=== PATIENT | female | born 1955 | race Caucasian/White ===

== ENCOUNTER 2016-05-29 21:47 | Emergency (ER) | payer OTHER ==
[~2016-05-29] VITALS: Ht 160 cm; Wt 66.3 kg
[~2016-05-29 21:47] MED LIST: AMIT50TA3 PO; CHOLTAB9 PO; CLOP1TAB15 PO; DIGO0.1267 PO; FURO40TA3 PO; LEVO125T72 PO; LOSA50TA6 PO; METO10TA3 PO; METO25TA56 PO; METO50TA17 PO; NITR0.4S UT; OMEP20CA9 PO; POTA-74 PO; ROSU5TAB PO; SPIR25TA PO; TRAM-453 PO; TRIA0.1C20 TOP; WARF2.5T8 PO; WARF5TAB90 PO
[2016-05-29 22:04] VITALS: TEMP 37.2; Ht 160 cm; Wt 66.3 kg
[2016-05-29] MEDS ORDERED: SODIUM CHLORIDE 0.9% 1000ML 1,000 ML IV STA (22:12)
[2016-05-29 22:15] VITALS: O2SAT 98
--- NOTE | 2016-05-29 22:17 | EMERGENCY ROOM VISIT NOTE ---
ED Visit Note First contact with patient: 21:56 I have seen and examined this patient with Stas Soler and generally agree with the treatment plan as discussed. Current/Historical Medications Scheduled Amitriptyline Hcl (Amitriptyline Hcl), 100 MG PO DAILY Cholecalciferol (D3-1000), 1,000 UNIT PO DAILY Clopidogrel (Plavix), 75 MG PO DAILY Digoxin (Lanoxin), 0.125 MG PO Q2D Furosemide (Lasix), 40 MG PO WK Levothyroxine Sodium (Synthroid), 125 MCG PO DAILY Losartan Potassium (Cozaar), 25 MG PO DAILY Metoclopramide HCl (Metoclopramide HCl), 10 MG PO DAILY Metoprolol Tartrate (Metoprolol Tartrate), 50 MG PO QAM Metoprolol Tartrate (Lopressor) (Lopressor), 25 MG PO QPM Omeprazole (Prilosec), 20 MG PO DAILY Potassium Chloride (Potassium Chloride Er), 1 TAB PO WK Rosuvastatin Calcium (Crestor), 10 MG PO DAILY Spironolactone (Aldactone), 25 MG PO BID Warfarin Sod (Jantoven), 2.5 MG PO 2XWK Warfarin Sodium (Coumadin), 5 MG PO DAILY Scheduled PRN Nitroglycerin (Nitrostat), 0.4 MG UT PRN PRN for Chest Pain Tramadol Hcl (Ultram), 50 MG PO TID PRN for Pain Triamcinolone Acet 0.1% (Aristocort 0.1%), 1 APPLN TOP BID PRN for ITCHING Allergies Coded Allergies: Promethazine (Verified Allergy, Mild, UNKNOWN, 11/16/15) PERRY Inhibitors (Verified Allergy, Unknown, UNKNOWN, 11/16/15) Benzyl Alcohol (Verified Allergy, Unknown, unknown, 11/16/15) Hydroxyzine (Verified Allergy, Unknown, UNKNOWN, 11/16/15) Metformin (Verified Allergy, Unknown, UNKNOWN, 11/16/15) Prochlorperazine (Verified Allergy, Unknown, unknown, 11/16/15) Saccharin (Verified Allergy, Unknown, unknown, 11/16/15) Tetracycline (Verified Allergy, Unknown, UNKNOWN, 11/16/15) Vital Signs Date Time Temp Pulse Resp B/P Pulse Ox O2 Delivery O2 Flow Rate FiO2 05/29/16 22:15 98 Room Air 05/29/16 22:04 37.2 66 18 104/51 99 Room Air 05/29/16 22:02 63 Laboratory Results Test 05/29/16 22:12 Departure Information Referrals John Blanco M.D. (PCP) Patient Instructions [facility]
[2016-05-29] MEDS ORDERED: AMT/25 PO (22:20)
[2016-05-29 22:21] LABS: BASO % 0.1 %; BASO ABS # 0.01 K/uL (0-0.2); COMPLETE YES; EOS % 2.9 %; HEMATOCRIT 35.3 % (37-47); IG% 0.3 %; LYMPH % 24.7 %; LYMPH ABS # 1.95 K/uL (1.2-3.4); MEAN CELL VOLUME 88.3 fL (80-100); MEAN CORPUSCULAR HEMOGLOBIN 29.3 pg (25-34); MEAN CORPUSCULAR HGB CONC 33.1 g/dl (32-36); MEAN PLATELET VOLUME 10.8 fL (7.4-10.4); PLATELET COUNT 132 K/uL (130-400); WHITE BLOOD COUNT 7.89 K/uL (4.8-10.8)
[2016-05-29] MEDS ORDERED: LNX125 PO (22:21)
[2016-05-29] MEDS ORDERED: LOSA1TAB PO (22:22)
[2016-05-29 22:31] LABS: INR 2.9 (0.9-1.1); PARTIAL THROMBOPLASTIN RATIO 1.6; PROTHROMBIN TIME (PATIENT) 32.4 SECONDS (9.0-12.0)
[2016-05-29 22:38] LABS: BUN/CREATININE RATIO 13.2 (10-20); CALCIUM 9.1 mg/dl (8.5-10.1); CREATININE 2.1 mg/dl (0.60-1.20); POTASSIUM 4.6 mmol/L (3.5-5.1)
[2016-05-29 22:41] LABS: ALB/GLOB RATIO 1.3 (0.9-2)
[2016-05-29 23:00] VITALS: O2SAT 96
--- NOTE | 2016-05-29 23:01 | DIAGNOSTIC IMAGING REPORT ---
ABDOMEN AND PELVIS CT WITHOUT CONTRAST CT DOSE: 410.12 mGy.cm HISTORY: suprapubic abdominal pain/vaginal bleeding - h/o hysterectomy TECHNIQUE: Multiaxial CT images of the abdomen and pelvis were performed without the use of intravenous and oral contrast according to the standard department stone protocol. COMPARISON STUDY: None. FINDINGS: The heart is moderately enlarged. There is a mitral valve prosthesis. Poststernotomy changes. Mild dependent changes seen within the lingula. No pneumoperitoneum. No pneumatosis. No suspicious lytic or blastic osseous lesions. The gallbladder is identified and may be surgically absent. The unenhanced liver, spleen, adrenal glands, kidneys, and pancreas are within normal limits. There is fatty replacement within the pancreatic head. No retroperitoneal lymphadenopathy. The bladder is moderately distended. The uterus is surgically absent. There are no fluid collections within the pelvis. Suboptimal evaluation for bowel pathology due to the lack of intravenous and oral contrast. However, there is no definite bowel wall thickening or obstruction. The appendix appears to be surgically absent. Moderate well-formed stool seen within the colon rectum. IMPRESSION: 1. Moderate cardiomegaly. 2. Moderate well-formed stool seen within the colon and rectum. 3. No definite bowel wall thickening or obstruction. 4. The bladder is moderately distended. Electronically signed by: Darshan Mosquera M.D. 05/29/2016 10:59 PM Dictated Date/Time: 05/29/2016 10:52 PM
[2016-05-29 23:25] LABS: URINE APPEARANCE CLEAR (CLEAR); URINE BILIRUBIN NEG (NEG); URINE COLOR YELLOW; URINE EPITHELIAL CELL AUTO 0-5 /lpf (0-5); URINE NITRITE NEG (NEG); URINE SPECIFIC GRAVITY 1.006 (1.000-1.030); UROBILINOGEN NEG (NEG); ZZUR CULT IF INDIC CLEAN CATCH NO
[2016-05-29 23:29] LABS: MANUAL MICROSCOPIC REQUIRED? NO; REVIEW REQ? NO
--- NOTE | 2016-05-30 00:50 | EMERGENCY ROOM VISIT NOTE ---
History First contact with patient: 21:56 Chief Complaint: VAGINAL BLEEDING Stated Complaint: VAG OR RECTAL BLEEDING History of Present Illness The patient is a 60 year old female who presents to the Emergency Department via EMS for evaluation of possible rectal or vaginal bleeding. She reports that after getting out of the shower tonight she noticed blood on her foot. She initially thought that she had foot laceration, but noticed the blood was dripping from her vaginal or rectal area. She medially contacted EMS. The patient takes Coumadin secondary to mechanical mitral valve repair. Her INR is typically above 3. She noticed intense bleeding which she reports is now decreased. She reports no previous history of bleeding issues. She's had a prior total hysterectomy. She reports no history of hemorrhoids and she does complain of some suprapubic discomfort. She's had no burning with urination or blood in her urine. She rates her current discomfort as a 3/10. She denies any fevers, chills, tinnitus, lightheadedness, chest pain, palpitations, shortness of breath, hematemesis, hematochezia, melena, hematuria, or dysuria. Review of Systems A complete 10-point Review of Systems was discussed with the patient, with pertinent positives and negatives listed in the History of Present Illness. All remaining Review of Systems questions can be considered negative unless otherwise specified. Social History Smoking Status: Never Smoker Smokeless Tobacco Use: No Alcohol Use: none Drug Use: none Marital Status: single Housing Status: lives with family Occupation Status: retired Current/Historical Medications Scheduled Amitriptyline HCl (Amitriptyline HCl), 100 MG PO DAILY Cholecalciferol (D3-1000), 1,000 UNIT PO DAILY Clopidogrel (Plavix), 75 MG PO DAILY Digoxin (Digoxin), 125 MCG PO Q2D Furosemide (Lasix), 40 MG PO WK Levothyroxine Sodium (Synthroid), 125 MCG PO DAILY Losartan Potassium (Cozaar), 25 MG PO DAILY Metoprolol Tartrate (Metoprolol Tartrate), 50 MG PO QAM Metoprolol Tartrate (Lopressor) (Lopressor), 25 MG PO QPM Omeprazole (Prilosec), 20 MG PO DAILY Potassium Chloride (Potassium Chloride Er), 1 TAB PO WK Rosuvastatin Calcium (Crestor), 10 MG PO DAILY Spironolactone (Aldactone), 25 MG PO BID Warfarin Sodium (Coumadin), 5 MG PO DAILY Scheduled PRN Metoclopramide HCl (Metoclopramide HCl), 10 MG PO DAILY PRN for GI Upset Nitroglycerin (Nitrostat), 0.4 MG UT PRN PRN for Chest Pain Tramadol Hcl (Ultram), 50 MG PO TID PRN for Pain Allergies Coded Allergies: Promethazine (Verified Allergy, Mild, UNKNOWN, 05/29/16) PERRY Inhibitors (Verified Allergy, Unknown, UNKNOWN, 05/29/16) Benzyl Alcohol (Verified Allergy, Unknown, unknown, 05/29/16) Hydroxyzine (Verified Allergy, Unknown, UNKNOWN, 05/29/16) Metformin (Verified Allergy, Unknown, UNKNOWN, 05/29/16) Prochlorperazine (Verified Allergy, Unknown, unknown, 05/29/16) Saccharin (Verified Allergy, Unknown, unknown, 05/29/16) Tetracycline (Verified Allergy, Unknown, UNKNOWN, 05/29/16) Physical Exam Vital Signs Date Time Temp Pulse Resp B/P Pulse Ox O2 Delivery O2 Flow Rate FiO2 05/30/16 01:07 65 18 104/70 Room Air 05/29/16 23:00 83 18 115/82 96 Room Air 05/29/16 22:15 98 Room Air 05/29/16 22:04 37.2 66 18 104/51 99 Room Air 05/29/16 22:02 63 Pain Rating (0-10): 3 Physical Exam VITAL SIGNS - Vital signs and nursing notes were reviewed. GENERAL - 60-year-old Female appearing her stated age who is in no acute distress. Communicates well with provider and answers questions appropriately. HEAD - NC/AT. LUNGS - Chest wall symmetric without accessory muscle use, intercostals retractions, or central cyanosis. Normal vesicular breath sounds CTA B/L. No wheezes, rales, or rhonchi appreciated. CARDIAC - RRR with S1/S2. No murmur, rubs, or gallops appreciated. ABDOMEN - Abdominal contour obese without pulsations or visible masses. BS normoactive all four quadrants. Mild tenderness to palpation appreciated in the suprapubic area. No palpable masses, hepatosplenomegaly, or ascites noted. BRIDAL CONSULTANT - (An RN nurse monitor worker was present throughout the entire BRIDAL CONSULTANT procedure.) SPECULUM EXAM: - Water-soluble lubricant was applied to the plastic speculum and inserted into the vagina in a downward fashion towards the location of the cervix. When resistance was met, the speculum was opened to visualize the cervix. There is no presence of cervix likely secondary to surgical removal. No leading or dried blood noted. Speculum removed without any blood present. - MONS - Kavon Stage V. multiple small purple papules noted to the labia bilaterally. Small excoriation over 1 the papules. No active bleeding noted. - VULVA - skin color consistent with surrounding structures. - RECTAL - skin tag noted in the 6 cough position. No active bleeding noted. Water-soluble lubricant was utilized to perform digital rectal exam. No rectal vault tenderness. No active bleeding. Stool was Hemoccult NEGATIVE. PSYCH - A&Ox3 and cooperates fully with examiner. Pt is very pleasant and interacts well with examiner. Medical Decision & Procedures ER Provider Diagnostic Interpretation: Radiological imaging and reports were reviewed by myself. Radiologist's Interpretation as follows: ABDOMEN AND PELVIS CT WITHOUT CONTRAST CT DOSE: 410.12 mGy.cm HISTORY: suprapubic abdominal pain/vaginal bleeding - h/o hysterectomy TECHNIQUE: Multiaxial CT images of the abdomen and pelvis were performed without the use of intravenous and oral contrast according to the standard department stone protocol. COMPARISON STUDY: None. FINDINGS: The heart is moderately enlarged. There is a mitral valve prosthesis. Poststernotomy changes. Mild dependent changes seen within the lingula. No pneumoperitoneum. No pneumatosis. No suspicious lytic or blastic osseous lesions. The gallbladder is identified and may be surgically absent. The unenhanced liver, spleen, adrenal glands, kidneys, and pancreas are within normal limits. There is fatty replacement within the pancreatic head. No retroperitoneal lymphadenopathy. The bladder is moderately distended. The uterus is surgically absent. There are no fluid collections within the pelvis. Suboptimal evaluation for bowel pathology due to the lack of intravenous and oral contrast. However, there is no definite bowel wall thickening or obstruction. The appendix appears to be surgically absent. Moderate well-formed stool seen within the colon rectum. IMPRESSION: 1. Moderate cardiomegaly. 2. Moderate well-formed stool seen within the colon and rectum. 3. No definite bowel wall thickening or obstruction. 4. The bladder is moderately distended. Laboratory Results 05/29/16 21:58 Red Blood Count 4.00, Mean Corpuscular Volume 88.3, Mean Corpuscular Hemoglobin 29.3, Mean Corpuscular Hemoglobin Concent 33.1, Mean Platelet Volume 10.8, Neutrophils (%) (Auto) 62.0, Lymphocytes (%) (Auto) 24.7, Monocytes (%) (Auto) 10.0, Eosinophils (%) (Auto) 2.9, Basophils (%) (Auto) 0.1, Neutrophils # (Auto ) 4.89, Lymphocytes # (Auto) 1.95, Monocytes # (Auto) 0.79, Eosinophils # (Auto ) 0.23, Basophils # (Auto) 0.01 05/29/16 21:58 Test 05/29/16 21:58 05/29/16 23:05 White Blood Count 7.89 K/uL (4.8-10.8) Red Blood Count 4.00 M/uL (4.2-5.4) Hemoglobin 11.7 g/dL (12.0-16.0) Hematocrit 35.3 % (37-47) Mean Corpuscular Volume 88.3 fL (80-100) Mean Corpuscular Hemoglobin 29.3 pg (25-34) Mean Corpuscular Hemoglobin Concent 33.1 g/dl (32-36) Platelet Count 132 K/uL (130-400) Mean Platelet Volume 10.8 fL (7.4-10.4) Neutrophils (%) (Auto) 62.0 % Lymphocytes (%) (Auto) 24.7 % Monocytes (%) (Auto) 10.0 % Eosinophils (%) (Auto) 2.9 % Basophils (%) (Auto) 0.1 % Neutrophils # (Auto) 4.89 K/uL (1.4-6.5) Lymphocytes # (Auto) 1.95 K/uL (1.2-3.4) Monocytes # (Auto) 0.79 K/uL (0.11-0.59) Eosinophils # (Auto) 0.23 K/uL (0-0.5) Basophils # (Auto) 0.01 K/uL (0-0.2) RDW Standard Deviation 47.3 fL (36.4-46.3) RDW Coefficient of Variation 14.6 % (11.5-14.5) Immature Granulocyte % (Auto) 0.3 % Immature Granulocyte # (Auto) 0.02 K/uL (0.00-0.02) Prothrombin Time 32.4 SECONDS (9.0-12.0) Prothromb Time International Ratio 2.9 (0.9-1.1) Activated Partial Thromboplast Time 41.5 SECONDS (21.0-31.0) Partial Thromboplastin Ratio 1.6 Anion Gap 5.0 mmol/L (3-11) Est Creatinine Clear Calc Drug Dose 25.4 ml/min Estimated GFR () 28.5 Estimated GFR (Non- 24.6 BUN/Creatinine Ratio 13.2 (10-20) Calcium Level 9.1 mg/dl (8.5-10.1) Total Bilirubin 0.5 mg/dl (0.2-1) Aspartate Amino Transf (AST/SGOT) 30 U/L (15-37) Alanine Aminotransferase (ALT/SGPT) 36 U/L (12-78) Alkaline Phosphatase 80 U/L (45-117) Total Protein 7.2 gm/dl (6.4-8.2) Albumin 4.0 gm/dl (3.4-5.0) Globulin 3.2 gm/dl (2.5-4.0) Albumin/Globulin Ratio 1.3 (0.9-2) Urine Color YELLOW Urine Appearance CLEAR (CLEAR) Urine pH 7.0 (4.5-7.5) Urine Specific [place] 1.006 (1.000-1.030) Urine Protein NEG (NEG) Urine Glucose (UA) NEG (NEG) Urine Ketones NEG (NEG) Urine Occult Blood TRACE (NEG) Urine Nitrite NEG (NEG) Urine Bilirubin NEG (NEG) Urine Urobilinogen NEG (NEG) Urine Leukocyte Esterase TRACE (NEG) Urine WBC (Auto) 1-5 /hpf (0-5) Urine RBC (Auto) 0-4 /hpf (0-4) Urine Hyaline Casts (Auto) 0 /lpf (0-5) Urine Epithelial Cells (Auto) 0-5 /lpf (0-5) Urine Bacteria (Auto) NEG (NEG) Medications Administered Medications (Trade) Dose Ordered Sig/Raam Route Start Time Stop Time Status Last Admin Dose Admin Sodium Chloride (Nss 1000ml) 1,000 ml @ 125 mls/hr Q8H STAT IV 05/29/16 22:12 05/30/16 01:28 DC 05/29/16 22:12 125 MLS/HR ED Course Patient was seen and evaluated by myself. Labs were drawn, saline lock in place. The patient was hydrated with normal saline at a rate of [address] of the abdomen and pelvis without contrast was ordered secondary to the patient's renal disease and chronic elevated creatinine. Laboratory results demonstrate no acute leukocytosis, worrisome anemia, or bandemia. She has no significant electrolyte abnormality. Creatinine is elevated at 2.1 which seems to be the patient's baseline. CT results above. Pelvic exam was otherwise unremarkable. Rectal exam demonstrated an occult negative stool. Laboratory results and imaging studies were reviewed with the patient who acknowledges understanding. Patient and family were instructed to follow-up with primary care provider from today's visit. They were educated on worrisome symptoms for return visit to the emergency department. Patient discharged home in good condition. Medical Decision Given the patient's presentation and stated complaint, I did elect to perform the above-mentioned workup. The patient presents today with bleeding from the rectum or vaginal area. On initial nursing assessment, it was felt that the blood was from the vaginal area. She has no active bleeding at this time. She is hemodynamically stable. Her H&H is stable. Her INR is elevated at 2.9 consistent with her history of mitral valve repair. She has no bleeding at this point. Pelvic exam and rectal exam are unremarkable. I suspected the patient may have had some bleeding from a small hemangioma present on the vulva. Regardless, there is no active bleeding at this point. The patient follow closely with her primary care provider from today's visit. She will return to the emergency department in the setting of any changing or worsening symptoms. Patient discharged home afebrile and in good condition. In the evaluation and treatment of this patient, the following differential diagnoses were considered: GI bleeding, vaginal bleeding, DIC, amongst others. Impression Primary Impression: Vaginal bleeding problems Departure Information Dispostion Home / Self-Care Condition GOOD Referrals John Blanco M.D. (PCP) Patient Instructions [facility] Additional Instructions You have been seen in the emergency department today for bleeding from the vaginal area. Keep your scheduled INR recheck appointment tomorrow. Return for any changing or worsening symptoms.
[2016-05-30 01:07] VITALS: BP 104/70; PULSE 65
== END 2016-05-30 01:09 | disposition home or self-care (01) ==
LOC: EDBD 21:47 → C.EDB 21:48
DX: N93.9 Abnormal uterine and vaginal bleeding, unspecified (principal); I34.1 Nonrheumatic mitral (valve) prolapse; Z90.710 Acquired absence of both cervix and uterus; Z79.01 Long term (current) use of anticoagulants; Z79.899 Other long term (current) drug therapy; Z88.8 Allergy status to other drugs, medicaments and biological substances

== ENCOUNTER 2016-06-02 14:28 | Emergency (ER) | payer OTHER ==
[~2016-06-02] VITALS: Ht 160 cm; Wt 61.0 kg
[~2016-06-02 14:28] MED LIST changes: -AMIT50TA3 PO; +AMT/25 PO; -DIGO0.1267 PO; +LNX125 PO; +LOSA1TAB PO; -LOSA50TA6 PO; -TRIA0.1C20 TOP; -WARF2.5T8 PO
[2016-06-02 14:33] VITALS: TEMP 37.1; Ht 160 cm; Wt 61.0 kg
[2016-06-02] MEDS ORDERED: SODIUM CHLORIDE 0.9% 1000ML 1,000 ML IV STA (14:57)
[2016-06-02 15:10] VITALS: O2SAT 96
[2016-06-02 15:21] LABS: BASO % 0.3 %; BASO ABS # 0.02 K/uL (0-0.2); COMPLETE YES; EOS % 2.4 %; HEMATOCRIT 34.7 % (37-47); IG% 0.3 %; LYMPH ABS # 1.22 K/uL (1.2-3.4); MEAN CELL VOLUME 86.8 fL (80-100); MEAN CORPUSCULAR HEMOGLOBIN 29.3 pg (25-34); MEAN CORPUSCULAR HGB CONC 33.7 g/dl (32-36); MEAN PLATELET VOLUME 11.2 fL (7.4-10.4); MONO % 7.2 %; NEUT % 71.8 %; PLATELET COUNT 139 K/uL (130-400); WHITE BLOOD COUNT 6.77 K/uL (4.8-10.8)
[2016-06-02 15:30] LABS: INR 3.2 (0.9-1.1); PARTIAL THROMBOPLASTIN RATIO 1.7; PROTHROMBIN TIME (PATIENT) 35.6 SECONDS (9.0-12.0)
[2016-06-02 15:40] LABS: BUN/CREATININE RATIO 15.1 (10-20); CALCIUM 9.7 mg/dl (8.5-10.1); CREATININE 1.6 mg/dl (0.60-1.20); POTASSIUM 4.6 mmol/L (3.5-5.1)
--- NOTE | 2016-06-02 15:52 | DIAGNOSTIC IMAGING REPORT ---
PELVIC ULTRASOUND CLINICAL HISTORY: Vaginal bleeding. COMPARISON STUDY: CT of the abdomen and pelvis May 29, 2016. TECHNIQUE: Transabdominal sonography of the pelvis was performed. Transvaginal imaging was deferred in this patient. FINDINGS: The uterus is not visualized and by history is surgically absent. Neither ovary was visualized by sonography. No adnexal mass or fluid was identified. IMPRESSION: 1. No pelvic mass or ascites identified by sonography. 2. Status post hysterectomy. Nonvisualization of the ovaries. Correlation with surgical history is recommended. Electronically signed by: Trey Fox M.D. 06/02/2016 3:50 PM Dictated Date/Time: 06/02/2016 3:48 PM
[2016-06-02 15:56] LABS: MANUAL MICROSCOPIC REQUIRED? YES; URINE APPEARANCE TURBID (CLEAR); URINE BILIRUBIN NEG (NEG); URINE COLOR RED; URINE NITRITE NEG (NEG); URINE PH 7.5 (4.5-7.5); UROBILINOGEN POS (NEG)
[2016-06-02 15:57] LABS: REVIEW REQ? NO; SULFASALICYLIC ACID POS (NEG)
[2016-06-02 15:59] LABS: URINE BACTERIA 1+ (NEG); URINE RBC >30 /hpf (0-4); URINE WBC >30 /hpf (0-5)
[2016-06-02 16:39] VITALS: BP 129/61; PULSE 67; O2SAT 95
[2016-06-02] MEDS ORDERED: GELATIN SPONGE 12-7MM ONE (16:58)
--- NOTE | 2016-06-02 20:12 | EMERGENCY ROOM VISIT NOTE ---
History Report prepared by Adithya: Valentin Mendoza Under the Supervision of: Dr. Henrik Lopez D.O. First contact with patient: 14:48 Chief Complaint: VAGINAL BLEEDING Stated Complaint: VAGINAL BLEEDING History of Present Illness The patient is a 60 year old female who presents to the Emergency Room with complaints of persistent vaginal bleeding that started at 1300 today. She saturated 2 pads so far. She also had cramping abdominal pain, which is resolved. The patient was in the ED with vaginal bleeding four days ago, and had a negative CT scan at that time. The patient is s/p complete hysterectomy. She never had any children. She denies recent sexual intercourse or vaginal trauma. She also has a history of IA and atrial fibrillation. She is s/p mitral valve replacement. She is on Coumadin and Plavix. Patient denies headache, change in vision, fevers, chest pain, shortness of breath, nausea, vomiting, diarrhea, pain with urination, and melena. Source of History: patient Onset: 1300 today Position: other (vaginal) Quality: other (bleeding) Timing: other (persistent) Associated Symptoms: + abdominal pain, No SOB, No chest pain, No diarrhea, No fevers, No nausea, No urinary symptoms Review of Systems See HPI for pertinent positives & negatives. A total of 10 systems reviewed and were otherwise negative. Past Medical & Surgical Medical Problems: (1) A-fib (2) Closed head injury (3) Knee pain, left (4) Myocardial infarction Surgical Problems: (1) Mitral valve replaced Family History No pertinent family history Social History Smoking Status: Never Smoker Alcohol Use: none Drug Use: none Marital Status: single Housing Status: lives with family Occupation Status: retired Current/Historical Medications Scheduled Amitriptyline HCl (Amitriptyline HCl), 100 MG PO DAILY Cholecalciferol (D3-1000), 1,000 UNIT PO DAILY Clopidogrel (Plavix), 75 MG PO DAILY Digoxin (Digoxin), 125 MCG PO Q2D Furosemide (Lasix), 40 MG PO WK Levothyroxine Sodium (Synthroid), 125 MCG PO DAILY Losartan Potassium (Cozaar), 25 MG PO DAILY Metoprolol Tartrate (Metoprolol Tartrate), 50 MG PO QAM Metoprolol Tartrate (Lopressor) (Lopressor), 25 MG PO QPM Omeprazole (Prilosec), 20 MG PO DAILY Potassium Chloride (Potassium Chloride Er), 1 TAB PO WK Rosuvastatin Calcium (Crestor), 10 MG PO DAILY Spironolactone (Aldactone), 25 MG PO BID Warfarin Sodium (Coumadin), 5 MG PO DAILY Scheduled PRN Metoclopramide HCl (Metoclopramide HCl), 10 MG PO DAILY PRN for GI Upset Nitroglycerin (Nitrostat), 0.4 MG UT PRN PRN for Chest Pain Tramadol Hcl (Ultram), 50 MG PO TID PRN for Pain Allergies Coded Allergies: Promethazine (Verified Allergy, Mild, UNKNOWN, 05/29/16) PERRY Inhibitors (Verified Allergy, Unknown, UNKNOWN, 05/29/16) Benzyl Alcohol (Verified Allergy, Unknown, unknown, 05/29/16) Hydroxyzine (Verified Allergy, Unknown, UNKNOWN, 05/29/16) Metformin (Verified Allergy, Unknown, UNKNOWN, 05/29/16) Prochlorperazine (Verified Allergy, Unknown, unknown, 05/29/16) Saccharin (Verified Allergy, Unknown, unknown, 05/29/16) Tetracycline (Verified Allergy, Unknown, UNKNOWN, 05/29/16) Physical Exam Vital Signs Date Time Temp Pulse Resp B/P Pulse Ox O2 Delivery O2 Flow Rate FiO2 06/02/16 16:39 67 20 129/61 95 Room Air 06/02/16 15:10 96 Room Air 06/02/16 14:33 37.1 67 20 121/61 94 Room Air Physical Exam GENERAL: Sitting up in bed, alert, well appearing, well nourished, no distress, non-toxic EYE EXAM: normal conjunctiva. OROPHARYNX: no exudate, no erythema, lips, buccal mucosa, and tongue normal and mucous membranes are moist NECK: supple, no nuchal rigidity, no adenopathy, non-tender LUNGS: Clear to auscultation. Normal chest wall mechanics HEART: Audible click noted, S1 normal and S2 normal ABDOMEN: abdomen soft, non-tender, normo-active bowel sounds, no masses, no rebound or guarding. SKIN: no rashes and no bruising UPPER EXTREMITIES: upper extremities are grossly normal. LOWER EXTREMITIES: No pitting edema. NEURO EXAM: Normal sensorium, cranial nerves II-XII grossly intact, normal speech, no gross weakness of arms, no gross weakness of legs. Gross sensation intact. PELVIC: External genitalia with bleeding hemangioma on the right labia majora. No rectal or internal vaginal bleeding. Normal vaginal mucosa. Medical Decision & Procedures ER Provider Diagnostic Interpretation: Radiology results as stated below per my review and the radiologist's interpretation: PELVIC ULTRASOUND CLINICAL HISTORY: Vaginal bleeding. COMPARISON STUDY: CT of the abdomen and pelvis May 29, 2016. TECHNIQUE: Transabdominal sonography of the pelvis was performed. Transvaginal imaging was deferred in this patient. FINDINGS: The uterus is not visualized and by history is surgically absent. Neither ovary was visualized by sonography. No adnexal mass or fluid was identified. IMPRESSION: 1. No pelvic mass or ascites identified by sonography. 2. Status post hysterectomy. Nonvisualization of the ovaries. Correlation with surgical history is recommended. Electronically signed by: Trey Fox M.D. 06/02/2016 3:50 PM Dictated Date/Time: 06/02/2016 3:48 PM Laboratory Results 06/02/16 15:07 Red Blood Count 4.00, Mean Corpuscular Volume 86.8, Mean Corpuscular Hemoglobin 29.3, Mean Corpuscular Hemoglobin Concent 33.7, Mean Platelet Volume 11.2, Neutrophils (%) (Auto) 71.8, Lymphocytes (%) (Auto) 18.0, Monocytes (%) (Auto) 7.2, Eosinophils (%) (Auto) 2.4, Basophils (%) (Auto) 0.3, Neutrophils # (Auto) 4.86, Lymphocytes # (Auto) 1.22, Monocytes # (Auto) 0.49, Eosinophils # (Auto) 0.16, Basophils # (Auto) 0.02 06/02/16 15:07 Test 06/02/16 15:07 06/02/16 15:17 White Blood Count 6.77 K/uL (4.8-10.8) Red Blood Count 4.00 M/uL (4.2-5.4) Hemoglobin 11.7 g/dL (12.0-16.0) Hematocrit 34.7 % (37-47) Mean Corpuscular Volume 86.8 fL (80-100) Mean Corpuscular Hemoglobin 29.3 pg (25-34) Mean Corpuscular Hemoglobin Concent 33.7 g/dl (32-36) Platelet Count 139 K/uL (130-400) Mean Platelet Volume 11.2 fL (7.4-10.4) Neutrophils (%) (Auto) 71.8 % Lymphocytes (%) (Auto) 18.0 % Monocytes (%) (Auto) 7.2 % Eosinophils (%) (Auto) 2.4 % Basophils (%) (Auto) 0.3 % Neutrophils # (Auto) 4.86 K/uL (1.4-6.5) Lymphocytes # (Auto) 1.22 K/uL (1.2-3.4) Monocytes # (Auto) 0.49 K/uL (0.11-0.59) Eosinophils # (Auto) 0.16 K/uL (0-0.5) Basophils # (Auto) 0.02 K/uL (0-0.2) RDW Standard Deviation 46.5 fL (36.4-46.3) RDW Coefficient of Variation 14.5 % (11.5-14.5) Immature Granulocyte % (Auto) 0.3 % Immature Granulocyte # (Auto) 0.02 K/uL (0.00-0.02) Prothrombin Time 35.6 SECONDS (9.0-12.0) Prothromb Time International Ratio 3.2 (0.9-1.1) Activated Partial Thromboplast Time 44.7 SECONDS (21.0-31.0) Partial Thromboplastin Ratio 1.7 Anion Gap 5.0 mmol/L (3-11) Est Creatinine Clear Calc Drug Dose 30.1 ml/min Estimated GFR () 39.6 Estimated GFR (Non- 34.2 BUN/Creatinine Ratio 15.1 (10-20) Calcium Level 9.7 mg/dl (8.5-10.1) Total Bilirubin 0.7 mg/dl (0.2-1) Direct Bilirubin 0.2 mg/dl (0-0.2) Aspartate Amino Transf (AST/SGOT) 35 U/L (15-37) Alanine Aminotransferase (ALT/SGPT) 41 U/L (12-78) Alkaline Phosphatase 93 U/L (45-117) Total Protein 7.5 gm/dl (6.4-8.2) Albumin 4.0 gm/dl (3.4-5.0) Lipase 138 U/L (73-393) Urine Color RED Urine Appearance TURBID (CLEAR) Urine pH 7.5 (4.5-7.5) Urine Specific [place] 1.020 (1.000-1.030) Urine Protein 2+ (NEG) Urine Glucose (UA) NEG (NEG) Urine Ketones NEG (NEG) Urine Occult Blood 3+ (NEG) Urine Nitrite NEG (NEG) Urine Bilirubin NEG (NEG) Urine Urobilinogen POS (NEG) Urine Leukocyte Esterase NEG (NEG) Urine RBC >30 /hpf (0-4) Urine WBC >30 /hpf (0-5) Urine Epithelial Cells >30 /lpf (0-5) Urine Bacteria 1+ (NEG) Laboratory results per my review. Medications Administered Medications (Trade) Dose Ordered Sig/Rama Route Start Time Stop Time Status Last Admin Dose Admin Sodium Chloride (Nss 1000ml) 1,000 ml @ 999 mls/hr Q1H1M STAT IV 06/02/16 14:57 06/02/16 15:57 DC 06/02/16 15:20 999 MLS/HR Gelatin (Surgifoam Sponge 12-7MM (SMALL)) 1 ea STK-MED ONCE .ROUTE 06/02/16 16:58 06/02/16 16:59 DC 06/02/16 16:58 1 EA ED Course ED COURSE: Vital signs were reviewed and were normal. The patients medical record was reviewed The above diagnostic studies were performed and reviewed. ED treatments and interventions as stated above. 1450: The patient was evaluated in room C10. A complete history and physical examination was performed. 1457: NSS 1000 ml @ 999 mls/hr. 1645: : Upon reevaluation, the patient is doing well.I discussed my findings with the patient and she understands and agrees with the treatment plan. Based on the patients age, coexisting illnesses, exam and lab findings the decision to treat as an outpatient was made. The patient remained stable while under my care. The patient appeared well at the time of discharge. Medical Decision Differential diagnosis: Etiologies such as ectopic , dysfunction uterine bleeding, bleeding dyscrasia, trauma, infection, as well as others were entertained. Patient is a 60-year-old female who presents for vaginal bleeding. Labs show no significant anemia with a hemoglobin of 11.7 unchanged from her previous on Saturday. BMP shows a creatinine 1.6. LFTs along with lipase and bilirubin was unremarkable. UA was contaminated with multiple epithelial cells. No urinary symptoms. INR was therapeutic at 3.2. Pelvic ultrasound was unremarkable. On my exam she has clear obvious bleeding from her right labial majora from a hemangioma. Pressure was held and Surgifoam was placed. Bleeding stopped. She was discharged to follow with her primary care doctor in 24 hours. Discussed with Pt concerning signs and symptoms to watch out for. Pt was instructed to follow up with their PCP and discussed with the patient their option to return to the ED at anytime for persistent or worsening symptoms. The appropriate anticipatory guidance and out-patient management, including indications for return to the emergency department, were explained at length to the patient and understood. Impression Primary Impression: Hemangioma Scribe Attestation The scribe's documentation has been prepared under my direction and personally reviewed by me in its entirety. I confirm that the note above accurately reflects all work, treatment, procedures, and medical decision making performed by me. Departure Information Dispostion Home / Self-Care Referrals John Blanco M.D. (PCP) Forms HOME CARE DOCUMENTATION FORM, IMPORTANT VISIT INFORMATION, WORK / SCHOOL INSTRUCTIONS Patient Instructions My [facility] Additional Instructions Please follow up with your primary care doctor with in the next 24 hours. Any worsening of your symptoms, please return to the ED immediately. This includes persistent bleeding. If the bleeding does recur please hold pressure for 20 minutes without checking. If it does not stop with holding pressure as instructed please return to the ER. You were found to have bleeding from a small hemangioma on your right labia majora. This bleeding resolved with pressure.
== END 2016-06-02 17:05 | disposition home or self-care (01) ==
LOC: EDBD 14:28 → C.EDC 14:29
DX: D18.00 Hemangioma unspecified site (principal); I48.91 Unspecified atrial fibrillation; I25.2 Old myocardial infarction; Z79.01 Long term (current) use of anticoagulants; Z51.81 Encounter for therapeutic drug level monitoring

== ENCOUNTER → 2016-11-09 | Outpatient (CLI) | payer OTHER ==
--- NOTE | 2016-11-12 13:33 | MAMMOGRAPHY REPORT ---
BILATERAL DIGITAL SCREENING MAMMOGRAM TOMOSYNTHESIS WITH CAD: 11/09/2016 TECHNIQUE: Breast tomosynthesis in addition to standard 2D mammography was performed. Current study was also evaluated with a Computer Aided Detection (CAD) system. COMPARISON: Comparison is made to exams dated: 10/21/2015 mammogram, 09/30/2014 mammogram, 09/29/2013 ma mmogram, 07/01/2012 ultrasound, 07/01/2012 mammogram - [facility], and 11/16/2004 mamm ogram - [facility]-. BREAST COMPOSITION: The tissue of both breasts is heterogeneously dense, which may obscure small mas ses. FINDINGS: No suspicious masses, calcifications, or areas of architectural distortion are noted in ei ther breast. There has been no significant interval change compared to prior exams. Oval partially c ircumscribed and partially obscured mass in the left upper outer quadrant is decreased compared to 2013 exam, and was shown to represent a benign cyst on a prior ultrasound exam. Note that the MLO views are somewhat suboptimal due to difficulties with patient positioning due to kyphosis and stiff shoulders; the pectoralis muscles are not visualized down to the posterior nipple line on bilateral M LO views. IMPRESSION: ACR BI-RADS CATEGORY 2: BENIGN There is no mammographic evidence of malignancy. A 1 year screening mammogram is recommended. The pa tient will receive written notification of the results. Approximately 10% of breast cancers are not detected with mammography. A negative mammographic report should not delay biopsy if a clinically suggestive mass is present. Khloe Davila M.D. ah/:11/09/2016 16:38:16 Nib Inspector: Aliyah ESPINAL(Kierra)(M), [facility] letter sent: Normal 1/2 BI-RADS Code: ACR BI-RADS Category 2: Benign
== END | disposition home or self-care (01) ==
LOC: C.MAMM 14:35
PROVIDERS: ATTEND Family Medicine
DX: Z12.31 Encounter for screening mammogram for malignant neoplasm of breast (principal)

== ENCOUNTER 2018-05-18 16:13 | Inpatient (IN) ==
[2018-05-18] MEDS ORDERED: SODIUM CHLORIDE 0.9% 500 ML IV ONE (16:38)
--- NOTE | 2018-05-18 17:00 | CT Scan Report ---
CT OF THE HEAD WITHOUT CONTRAST CLINICAL HISTORY: Stroke evaluation, aphasia COMPARISON STUDY: Head CT December 11, 2017. CT DOSE: 537.48 mGy.cm TECHNIQUE: Helical axial images of the head were obtained without IV contrast. Automated exposure con trol was utilized for the study. A dose lowering technique was utilized adhering to the principles o f ALARA. FINDINGS: No acute intracranial hemorrhage, midline shift or mass effect is present. Brain volume is normal. Ventricular system is normal. Basilar cisterns are patent. There are no extra-axial collectio ns. Ahn-white differentiation is maintained. There are no findings to suggest acute dural sinus thro mbosis or acute territorial infarct. No calvarial abnormalities are present. IMPRESSION: No acute intracranial findings. Electronically signed by: Trey Fox M.D. 05/18/2018 4:59 PM
[2018-05-18 17:09] LABS: Alanine Aminotransferase 28 U/L (12-78); Aspartate Aminotransferase 29 U/L (15-37); BUN Creatinine Ratio 11.6 (10-20); Blood Urea Nitrogen 15 mg/dl (7-18); Calcium 9.5 mg/dl (8.5-10.1); Carbon Dioxide 31 mmol/L (21-32); Chloride 104 mmol/L (98-107); Creatinine Clr Calc Pharmacy 37.2 ml/min; Est GFR (African American) 49.3; Est GFR (Non-African American) 42.5; Glucose 104 mg/dl (70-99); Magnesium 2.4 mg/dl (1.8-2.4); Potassium 4.2 mmol/L (3.5-5.1); Sodium 139 mmol/L (136-145)
[2018-05-18 17:16] LABS: INR 2.7 (0.9-1.1); Partial Thromboplastin Ratio 1.5; Partial Thromboplastin Time 40.6 Seconds (21.0-31.0); Prothrombin Time 25.7 Seconds (9.0-12.0)
[2018-05-18 17:20] LABS: Albumin Globulin Ratio 1.1 (0.9-2); Alkaline Phosphatase 96 U/L (45-117); Bilirubin,Total 0.5 mg/dl (0.2-1); Globulin 3.7 gm/dl (2.5-4.0); Total Protein 7.7 gm/dl (6.4-8.2); Troponin I < 0.015 ng/ml (0-0.045)
[2018-05-18 17:32] LABS: T4 Free Thyroxine 1.01 ng/dl (0.8-1.6)
[2018-05-18 17:39] LABS: Basophils # (auto) 0.03 K/uL (0-0.2); Basophils % (auto) 0.5 %; Eosinophils % (auto) 3.3 %; Hemoglobin 11.1 g/dL (12.0-16.0); Lymphocytes # (auto) 1.06 K/uL (1.2-3.4); Lymphocytes % (auto) 17.3 %; Mean Corpuscular Hemoglobin 27.3 pg (25-34); Mean Corpuscular Hgb Conc 31.7 g/dL (32-36); Mean Corpuscular Volume 86.2 fL (80-100); Mean Platelet Volume 11.3 fL (7.4-10.4); Monocytes # (auto) 0.41 K/uL (0.11-0.59); Monocytes % (auto) 6.7 %; Neutrophils # (auto) 4.42 K/uL (1.4-6.5); Neutrophils % (auto) 72.2 %; Platelet Count 140 K/uL (130-400); RDW Coefficient of Variation 15.5 % (11.5-14.5); RDW Standard Deviation 49.6 fL (36.4-46.3); Red Blood Count 4.06 M/uL (4.2-5.4); White Blood Count 6.12 K/uL (4.8-10.8)
--- NOTE | 2018-05-18 18:14 | History & Physical Report ---
Date of Service May 18, 2018 Assessment & Plan (1) Numbness: Acute numbness that is symmetric and less likely related to stroke however, she is high risk secondary to a mechanical mitral valve and she has some slurred speech that her mother corroborates is different than normal. She does have a history of migraines but denies any history of aura in the past. She denies any headache currently. Electrolytes are within normal limits. She is not a vegetarian or vegan. She denies any recent abnormal foods that she might of been allergic to. She denies any swelling of her mouth or tongue. She denies any numbness of her tongue. She denies any UTI symptoms however urinalysis and urine sharp pending. She did report some generalized lightheadedness the day prior to onset of symptoms. Symptoms have not resolved throughout today. Diabetes is well controlled. As she is high risk for stroke will admit her to the hospital on telemetry and monitor on telemetry. She has a history of atrial fibrillation as is currently in this rhythm. She has a history of past embolic myocardial infarction and TIA and was on chronic anticoagulation plus antiplatelet therapy with clopidogrel until this was stopped by Cardiology in December 2017. She remains on Coumadin monotherapy. Rate is normal. MRI is contraindicated in setting of mechanical mitral valve. CT head without contrast is negative for acute intracranial abnormality. Last echo was in June 2017 and revealed a normal prosthetic valve. Will repeat echo at this time. Consult neurology and cardiology for additional recommendations. Will check B12 and folate in the morning and again urine studies are pending. (2) H/O mitral valve replacement with mechanical valve: Goal INR 2.5-3.5, currently within range. Trend INR daily (3) Hypothyroidism: TSH is 11 however, levothyroxine was recently increased from 75 p.o. daily to 100 p.o. daily. 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 She has always taken at this time and does not take it with any other medications or with dinner. (4) Diabetes type 2, controlled: Diet controlled diabetes, blood sugar checks before meals at bedtime with insulin for correction factor only. No carb coverage. A1c in a.m. (5) Atrial fibrillation: Persistent, on Coumadin, rate controlled with metoprolol 25 mg p.o. every morning. (6) DVT prophylaxis: Coumadin Full code Disposition-to telemetry DO [facility] Hospitalist History of Present Illness Chief Complaint: I woke up with numbness Primary Care Provider: John Blanco MD 62-year-old female with history of rheumatic heart disease status post mitral mechanical heart valve on Coumadin and therapeutic presented with 1 day of bilateral lower face numbness, bilateral fingertip numbness and bilateral numbness on the bottoms of her feet. She reports waking up with this. She also reports some slurred speech and her mother agrees she is speaking differently. There is no other gross focal deficit that is reported or seen on exam. She denies any history of confusion, changes in vision, headaches, recent migraines, (of which she has a history.), She is not vegan, she denies any food allergies or eating any new strange foods. She denies any tongue numbness and she denies any swelling of her mouth or tongue. She denies any focal weakness in her arms or legs and no generalized weakness. She does report the day prior to arrival she was feeling lightheaded all day but this did not stop her from walking to [place] and going through her daily activities. She otherwise denies any recent infections, she denies any UTI symptoms, she denies any changes in bowel aside from diarrhea for 1 day last week. She denies any chest pain, shortness of breath, abdominal pain, weight gain or swelling. The numbness in her feet is not causing her difficulties with walking. She is a diabetic but is well controlled. She denies a history of neuropathy. Allergies Allergy/AdvReac Type Severity Reaction Status Date / Time prochlorperazine Allergy Severe NUCHAL Verified 05/18/18 17:51 DYSTONIA promethazine Allergy Severe NUCHAL Verified 05/18/18 17:51 DYSTONIA PERRY Inhibitors Allergy Intermediate Cough Verified 05/18/18 17:51 benzyl alcohol Allergy Unknown unknown Verified 05/18/18 17:51 hydroxyzine Allergy Unknown UNKNOWN Verified 05/18/18 17:51 metformin AdvReac Intermediate Diarrhea Verified 05/18/18 17:51 tetracycline AdvReac Intermediate Gastrointestinal Verified 05/18/18 17:51 Upset Home Medications Home Medications Medication Instructions Recorded Confirmed Type cholecalciferol (vitamin D3) 1,000 unit PO QAM 12/05/17 05/18/18 History [Vitamin D3] metoprolol tartrate 25 mg PO QAM 12/05/17 05/18/18 History nitroglycerin [Nitrostat] 0.4 mg SUBLINGUAL DIRECTED PRN 12/05/17 05/18/18 History omeprazole 20 mg PO PM 12/05/17 05/18/18 History rosuvastatin 10 mg PO DAILY 12/05/17 05/18/18 History tramadol 50 mg PO TID PRN 12/05/17 05/18/18 History acetaminophen [Tylenol Extra 500 mg PO Q6H PRN 05/18/18 05/18/18 History Strength] amitriptyline 50 mg PO BID 05/18/18 05/18/18 History furosemide 40 mg PO [id number]@0900 05/18/18 05/18/18 History levothyroxine 100 mcg PO PM 05/18/18 05/18/18 History metoclopramide HCl [Reglan] 10 mg PO AC PRN 05/18/18 05/18/18 History ropinirole [Requip] 2 mg PO TID 05/18/18 05/18/18 History warfarin 5 mg PO 4XWK 05/18/18 05/18/18 History warfarin 7.5 mg PO 3XWK 05/18/18 05/18/18 History Past Med/Surg History Medical History Anxiety CKD (chronic kidney disease), stage III Migraines Restless legs syndrome S/P tubal ligation TIA (transient ischemic attack) Atrial fib/flutter, transient Diabetes H/O radioactive iodine thyroid ablation H/O: hysterectomy HTN (hypertension) Surgical History S/P appy S/P MVR (mitral valve replacement) S/P T&A (status post tonsillectomy and adenoidectomy) S/P cholecystectomy Social History Preferred Language: Hungarian Beliefs That Will Affect Care: Mormonism Current Living Situation: Parent and Family Current Living Situation Comment: mother livs w/ pt, pt care for mother Feels Safe at Home: Yes Smoking Status: Never smoker Hx Alcohol Use: Yes Hx Substance Use: No Review of Systems At least ten systems were reviewed and negative except as indicated in HPI above. Physical Exam Vital Signs (Past 24 Hours): Last Vital Signs Temp 36.5 C 05/18/18 16:21 Pulse 59 L 05/18/18 17:41 Resp 18 05/18/18 17:41 BP 134/81 05/18/18 17:41 Pulse Ox 99 05/18/18 17:41 CONSTITUTIONAL: WNWD, vitals as above, generally well-appearing, no overt speech deficits, facial symmetry noted EYES: EOMI bilaterally, PERRL, normal conjuctivae, no scleral icterus ENT: oropharynx clear, no maxillary or ethmoid sinus tenderness NECK: trachea midline, no lymphadenopathy RESPIRATORY: Crackles at right base otherwise clear to auscultation bilaterally. No wheezes, normal respiratory effort CARDIOVASCULAR: regular rate and rhythm, S1 and 2 heard without murmurs, gallops or rubs, mechanical valve audible on auscultation, no JVD, no peripheral edema GASTROINTESTINAL: normal bowel sounds, soft, nontender, nondistended MUSCULOSKELETAL: strength 5/5 throughout, head is normocephalic and atraumatic SKIN: warm and dry NEUROLOGIC: patellar and BR DTR 2+ bilat. PERRL, EOMI, no facial palsy, no dysarthria. CN 2-12 intact, decreased facial sensation bilaterally in the lower face, no decreased sensation to touch in hands, decreased sensation on soles of feet bilaterally to touch, normal cognition, normal speech, no tremor PSYCHIATRIC: alert cooperative and oriented to person, place and time. Results & Data Laboratory Results Short CBC 05/18/18 Range/Units 15:59 WBC 6.12 (4.8-10.8) K/uL Hgb 11.1 L (12.0-16.0) g/dL Hct 35.0 L (37-47) % Plt Count 140 (130-400) K/uL BMP 05/18/18 15:59 Sodium 139 Potassium 4.2 Chloride 104 Carbon Dioxide 31 BUN 15 Creatinine 1.32 H Glucose 104 H Calcium 9.5 Cardiac Enzymes 05/18/18 Range/Units 15:59 Troponin I < 0.015 (0-0.045) ng/ml Liver Function 05/18/18 Range/Units 15:59 Total Bilirubin 0.5 (0.2-1) mg/dl AST 29 (15-37) U/L ALT 28 (12-78) U/L Alkaline Phosphatase 96 (45-117) U/L Albumin 4.0 (3.4-5.0) gm/dl Diagnostic Findings CT OF THE HEAD WITHOUT CONTRAST CLINICAL HISTORY: Stroke evaluation, aphasia COMPARISON STUDY: Head CT December 11, 2017. CT DOSE: 537.48 mGy.cm TECHNIQUE: Helical axial images of the head were obtained without IV contrast. Automated exposure control was utilized for the study. A dose lowering technique was utilized adhering to the principles of ALARA. FINDINGS: No acute intracranial hemorrhage, midline shift or mass effect is present. Brain volume is normal. Ventricular system is normal. Basilar cisterns are patent. There are no extra-axial collections. Ahn-white differentiation is maintained. There are no findings to suggest acute dural sinus thrombosis or acute territorial infarct. No calvarial abnormalities are present. IMPRESSION: No acute intracranial findings. 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
--- NOTE | 2018-05-18 19:15 | Emergency Department Note ---
Entered by Leigh Dobson acting as a scribe for Perez Worthington M.D. History of Present Illness General Chief complaint: Neuro Symptoms/Deficit Source: patient and family Mode of arrival: ambulatory Limitations: no limitations History of Present Illness Onset (ago): hour(s) 8 Location: head Radiation: non-radiation Pain Consistency: + constant Quality: + other (tingling) Associated symptoms: + other (+dizziness); no chest pain, no cough (or cold symptoms) and no nausea/vomiting Treatments prior to arrival: none The patient is a 62 year old female who presents to the Emergency Room with complaints of persistent neurologic symptoms since 929 this morning. She states she first experienced tingling in her face which then progressed to her bilateral fingers. She denies any headache or vision changes. Her Mother notes her speech does seem slightly slurred. She denies any nausea, vomiting or chest pain. She denies any recent cough or cold symptoms. She notes she did experience dizziness yesterday. The patient states she did have a "mild stroke" over 20 years ago. She does take daily Coumadin for a history of mitral valve replacement. Home Medications Home Medications Medication Instructions Recorded Confirmed Type cholecalciferol (vitamin D3) 1,000 unit PO QAM 12/05/17 05/18/18 History [Vitamin D3] metoprolol tartrate 25 mg PO QAM 12/05/17 05/18/18 History nitroglycerin [Nitrostat] 0.4 mg SUBLINGUAL DIRECTED PRN 12/05/17 05/18/18 History omeprazole 20 mg PO PM 12/05/17 05/18/18 History rosuvastatin 10 mg PO DAILY 12/05/17 05/18/18 History tramadol 50 mg PO TID PRN 12/05/17 05/18/18 History acetaminophen [Tylenol Extra 500 mg PO Q6H PRN 05/18/18 05/18/18 History Strength] amitriptyline 50 mg PO BID 05/18/18 05/18/18 History furosemide 40 mg PO MoWeFr@0900 05/18/18 05/18/18 History levothyroxine 100 mcg PO PM 05/18/18 05/18/18 History metoclopramide HCl [Reglan] 10 mg PO DAILY PRN 05/18/18 05/18/18 History ropinirole [Requip] 2 mg PO TID 05/18/18 05/18/18 History warfarin 5 mg PO 4XWK 05/18/18 05/18/18 History warfarin 7.5 mg PO 3XWK 05/18/18 05/18/18 History Allergies Allergy/AdvReac Type Severity Reaction Status Date / Time prochlorperazine Allergy Severe NUCHAL Verified 05/18/18 17:51 DYSTONIA promethazine Allergy Severe NUCHAL Verified 05/18/18 17:51 DYSTONIA PERRY Inhibitors Allergy Intermediate Cough Verified 05/18/18 17:51 benzyl alcohol Allergy Unknown unknown Verified 05/18/18 17:51 hydroxyzine Allergy Unknown UNKNOWN Verified 05/18/18 17:51 metformin AdvReac Intermediate Diarrhea Verified 05/18/18 17:51 tetracycline AdvReac Intermediate Gastrointestinal Verified 05/18/18 17:51 Upset Past Med/Surg History Medical History Anxiety CKD (chronic kidney disease), stage III Migraines Restless legs syndrome S/P tubal ligation TIA (transient ischemic attack) Atrial fib/flutter, transient Diabetes H/O radioactive iodine thyroid ablation H/O: hysterectomy HTN (hypertension) Surgical History S/P appy S/P MVR (mitral valve replacement) S/P T&A (status post tonsillectomy and adenoidectomy) S/P cholecystectomy Social History Preferred Language: Togolese Beliefs That Will Affect Care: Scientology Current Living Situation: Parent and Family Current Living Situation Comment: mother livs w/ pt, pt care for mother Feels Safe at Home: Yes Smoking Status: Never smoker Hx Alcohol Use: Yes Hx Substance Use: No Review of Systems See HPI for pertinent positives & negatives. and A total of 10 systems reviewed and were otherwise negative Physical Exam Vital Signs Vital Signs - 24 hr 05/18/18 16:21 05/18/18 17:41 05/18/18 18:37 Temperature 36.5 C Temperature Source Oral Sepsis Recent Fever Within 48 Hours No Sepsis New/Unexplained Change in Mental Status No Sepsis Action Taken by Nursing No Action Required Pulse Rate 66 Pulse Rate [Left Apical] 59 L 66 Pulse Rhythm Regular Pulse Strength Normal Respiratory Rate 18 18 18 Respiratory Effort / Characteristics Non-Labored Non-Labored Respiratory Depth Normal Normal Respiratory Pattern Regular Blood Pressure 134/77 Blood Pressure [Right Arm] 134/81 141/85 H Blood Pressure Mean 96 Blood Pressure Mean [Right Arm] 98 103 Blood Pressure Position Lying Pulse Oximetry 97 99 100 Oxygen Delivery Method Room Air Room Air GENERAL: Awake, alert, well-appearing, in no distress HENT: Normocephalic, atraumatic. Oropharynx unremarkable. EYES: Normal conjunctiva. Sclera non-icteric. EOMI. NECK: Supple. No nuchal rigidity. RESPIRATORY: Clear to auscultation. No wheezes. Normal respiratory effort. CARDIAC: Normal rate. Irregular rhythm. Extremities warm and well perfused. GI: Soft, non-distended. No tenderness to palpation. RECTAL: Deferred. MUSCULOSKELETAL: Atraumatic. Chest examination reveals no tenderness. LOWER EXTREMITIES: Calves are equal size bilaterally and non-tender. No edema NEURO: Slurred speech. No finger to nose ataxia. 5/5 strength in extremities. No facial droop. No aphasia. SKIN: Warm and dry. No rash or jaundice noted. Course 1630: Past medical records reviewed. The patient was evaluated in room C1B, and a complete history and physical examination were performed. 1539: I discussed the patients case with Dilma Pérez. The patient will be further evaluated. Consultations Consultation #1: I discussed the patients case with Dilma Pérez. The patient will be further evaluated. Time: 15:39 Administered Medications Discontinued Medications Sodium Chloride (Nss) 500 mls @ 999 mls/hr IV .Q31M ONE Stop: 05/18/18 17:08 Last Infusion: 05/18/18 17:29 Dose: 0 mls/hr Documented by: [id number] Admin: 05/18/18 16:59 Dose: 999 mls/hr Documented by: [id number] Medical Decision Making Differential Diagnosis Differential diagnoses includes but is not limited to toxic, metabolic, infectious, traumatic, cardiac, neurologic, hematologic, psychiatric and inflammatory etiologies. Medical Records Attestation: I reviewed the patient's medical records. Home Medications Current Medication List: was personally reviewed by me Laboratory Data Attestation: I reviewed the patient's lab results. Result diagrams: 05/18/18 15:59 05/18/18 15:59 Lab Results 05/18/18 05/18/18 05/18/18 Range/Units 15:59 15:59 15:59 WBC 6.12 (4.8-10.8) K/uL RBC 4.06 L (4.2-5.4) M/uL Hgb 11.1 L (12.0-16.0) g/dL Hct 35.0 L (37-47) % MCV 86.2 (80-100) fL MCH 27.3 (25-34) pg MCHC 31.7 L (32-36) g/dL RDW Std Deviation 49.6 H (36.4-46.3) fL RDW Coeff of Courtney 15.5 H (11.5-14.5) % Plt Count 140 (130-400) K/uL MPV 11.3 H (7.4-10.4) fL Immature Gran % (Auto) 0.0 % Neut % (Auto) 72.2 % Lymph % (Auto) 17.3 % Glascock % (Auto) 6.7 % Eos % (Auto) 3.3 % Baso % (Auto) 0.5 % Immature Gran # (Auto) 0.00 (0.00-0.02) K/uL Neut # (Auto) 4.42 (1.4-6.5) K/uL Lymph # (Auto) 1.06 L (1.2-3.4) K/uL Glascock # (Auto) 0.41 (0.11-0.59) K/uL Eos # (Auto) 0.20 (0-0.5) K/uL Baso # (Auto) 0.03 (0-0.2) K/uL PT 25.7 H (9.0-12.0) Seconds INR 2.7 H (0.9-1.1) APTT 40.6 H (21.0-31.0) Seconds PTT Ratio 1.5 Sodium 139 (136-145) mmol/L Potassium 4.2 (3.5-5.1) mmol/L Chloride 104 (98-107) mmol/L Carbon Dioxide 31 (21-32) mmol/L Anion Gap 4.0 (3-11) BUN 15 (7-18) mg/dl Creatinine 1.32 H (0.6-1.2) mg/dl Est Cr Clr Drug Dosing 37.2 ml/min Est GFR ( Amer) 49.3 Est GFR (Non-Af Amer) 42.5 BUN/Creatinine Ratio 11.6 (10-20) Glucose 104 H (70-99) mg/dl Calcium 9.5 (8.5-10.1) mg/dl Magnesium 2.4 (1.8-2.4) mg/dl Total Bilirubin 0.5 (0.2-1) mg/dl AST 29 (15-37) U/L ALT 28 (12-78) U/L Alkaline Phosphatase 96 (45-117) U/L Troponin I < 0.015 (0-0.045) ng/ml Total Protein 7.7 (6.4-8.2) gm/dl Albumin 4.0 (3.4-5.0) gm/dl Globulin 3.7 (2.5-4.0) gm/dl Albumin/Globulin Ratio 1.1 (0.9-2) TSH 11.200 H (0.300-4.500) uIu/ml Free T4 1.01 (0.8-1.6) ng/dl Imaging Data Radiologist's Impression: Radiology results as stated below per my review and the radiologist's interpretation: CT OF THE HEAD WITHOUT CONTRAST CLINICAL HISTORY: Stroke evaluation, aphasia COMPARISON STUDY: Head CT December 11, 2017. CT DOSE: 537.48 mGy.cm TECHNIQUE: Helical axial images of the head were obtained without IV contrast. Automated exposure control was utilized for the study. A dose lowering technique was utilized adhering to the principles of ALARA. FINDINGS: No acute intracranial hemorrhage, midline shift or mass effect is present. Brain volume is normal. Ventricular system is normal. Basilar cisterns are patent. There are no extra-axial collections. Ahn-white differentiation is maintained. There are no findings to suggest acute dural sinus thrombosis or acute territorial infarct. No calvarial abnormalities are present. IMPRESSION: No acute intracranial findings. Electronically signed by: Trey Fox M.D. 05/18/2018 4:59 PM ECG Data Attestation: I personally reviewed and interpreted this ECG as follows: Indication: weakness Rate (beats per minute): 68 Rhythm: atrial fibrillation Findings: + other (Non-specific T-wave changes); no ST depression and no ST elevation Blood Pressure Blood Pressure Findings: Elevated blood pressure Blood Pressure Disposition: further management by hospitalist MDM Narrative 62-year-old female presenting via S today with a past medical history significant for migraine, mechanical valve replacement on Coumadin, atrial fibrillation, GERD, diabetes, CKD, RLS, TIA who states that around 7:00 this morning had some mouth numbness, dysphasia, tongue numbness, and tingling in her hands but not really sided. Also endorse that she has a bit of a headache at this time. Denies visual changes. No trauma or fever reported. CT the head is unremarkable. INR 2.7 therapeutic. Electrolytes look okay. Thyroid, TSH, is elevated but free T4 is within normal limits. EKG shows rate controlled atrial fibrillation. Patient has a mechanical heart valve and unable to undergo MRI. New concerns could be a possible CVA versus atypical migraine symptoms. Discussed with hospitalist and patient feel that admission is indicated for further neurological consultation. Impression & Plan Slurred speech, Numbness Discharge Plan Visit Data Chief Complaint: Neuro Symptoms/Deficit ED Provider: Perez Worthington Discharge Problem: Slurred speech, Numbness Patient Disposition: Being Evaluated by Hospitalist Discharge Instructions Interventions: ED Discharge Assessment Last Done: 05/18/18 19:07 Forms Stand Alone Forms: [facility] Prescriptions Prescriptions: No Action acetaminophen [Tylenol Extra Strength] 500 mg Tablet 500 mg PO Q6H PRN (Reason: Pain) RF: 0 levothyroxine 100 mcg tablet 100 mcg PO PM RF: 0 warfarin 5 mg Tablet 5 mg PO 4XWK RF: 0 warfarin 5 mg Tablet 7.5 mg PO 3XWK RF: 0 metoclopramide HCl [Reglan] 10 mg Tablet 10 mg PO DAILY PRN (Reason: Nausea) RF: 0 ropinirole [Requip] 4 mg Tablet 2 mg PO TID RF: 0 furosemide 40 mg tablet 40 mg PO MoWeFr@0900 RF: 0 amitriptyline 50 mg tablet 50 mg PO BID RF: 0 tramadol 50 mg Tablet 50 mg PO TID PRN (Reason: Pain) RF: 0 nitroglycerin [Nitrostat] 0.4 mg Tablet, Sublingual 0.4 mg Sublingual DIRECTED PRN (Reason: Chest Pain) RF: 0 omeprazole 20 mg Capsule,Delayed Release(Dr/Ec) 20 mg PO PM RF: 0 cholecalciferol (vitamin D3) [Vitamin D3] 1,000 unit Capsule 1,000 unit PO QAM RF: 0 rosuvastatin 10 mg Tablet 10 mg PO DAILY RF: 0 metoprolol tartrate 25 mg Tablet 25 mg PO QAM RF: 0 Referrals Referrals: John Blanco MD [Primary Care Provider] - The scribe's documentation has been prepared under my direction and personally reviewed by me in its entirety. I confirm that the note above accurately reflects all work, treatment, procedures, and medical decision making performed by me.
[2018-05-18] MEDS ORDERED: METOCLOPRAMIDE HCL 10 MG TABLET PO PRN (19:24)
[2018-05-18] MEDS ORDERED: NITROGLYCERIN SL 0.4 MG/TAB TAB SL PRN (19:24)
[2018-05-18] MEDS ORDERED: GLUCOSE 40% GEL 15 GM TUBE PO PRN (19:33)
[2018-05-18] MEDS ORDERED: GLUCOSE 10 TABS/TUBE PO PRN (19:33)
[2018-05-18] MEDS ORDERED: DEXTROSE 50% 50 ML SYRINGE IV PRN (19:33)
[2018-05-18] MEDS ORDERED: PHARMACIST DISCHARGE MED REC CONSULT PRN (19:33)
[2018-05-18] MEDS ORDERED: GLUCAGON FOR INJ 1 MG VIAL SQ PRN (19:33)
[2018-05-18] MEDS ORDERED: CARBOHYDRATES FOR HYPOGLYCEMIA PO PRN (19:33)
[2018-05-18] MEDS: ROPINIROLE HCL 1 MG TABLET PO SCH (21:12)
[2018-05-18] MEDS: PANTOprazole 40 MG TAB PO SCH (21:12)
[2018-05-18] MEDS: AMITRIPTYLINE HCL 50 MG TAB PO SCH (21:13)
[2018-05-18] MEDS: INSULIN ASPART 100 UNITS/ML 3 ML PEN SC SCH (21:13)
[2018-05-18] MEDS: WARFARIN SOD 5 MG TAB PO SCH (21:14)
[2018-05-18] MEDS: SODIUM CHLORIDE 0.9% 1000ML 1,000 ML IV SCH (21:15)
[2018-05-18] MEDS ORDERED: PNEUMOCOCCAL ADMINISTRATION CHARGE ONE (21:15)
[2018-05-18] MEDS ORDERED: PNEUMOCOCCAL POLYSACCHARIDES 25 MCG/0.5 ML VIAL/SYR IM ONE (21:15)
[2018-05-18 23:15] LABS: Appearance Urine Clear (Clear); Bilirubin Urine Negative (Negative); Color Urine Yellow; Glucose Urine UA Negative (Negative); Ketones Urine Negative (Negative); Leukocyte Esterase Urine Negative (Negative); Nitrite Urine Negative (Negative); Protein Urine Negative (Negative); Specific Gravity Urine 1.011 (1.000-1.030); Urobilinogen Urine Negative (Negative); pH Urine 7.5 (4.5-7.5)
[2018-05-19] MEDS: TRAMADOL HCL 50 MG TABLET PO PRN (05:53)
[2018-05-19] MEDS: LEVOTHYROXINE SODIUM 100 MCG TABLET PO SCH (05:53)
[2018-05-19 07:32] LABS: Hematocrit (blood only) 29.9 % (37-47); Hemoglobin 9.3 g/dL (12.0-16.0); Mean Corpuscular Hgb Conc 31.1 g/dL (32-36); Mean Corpuscular Volume 86.7 fL (80-100); RDW Coefficient of Variation 15.7 % (11.5-14.5); RDW Standard Deviation 49.8 fL (36.4-46.3); Red Blood Count 3.45 M/uL (4.2-5.4); White Blood Count 4.49 K/uL (4.8-10.8)
[2018-05-19 07:40] LABS: INR 2.7 (0.9-1.1)
[2018-05-19 07:55] LABS: Mean Platelet Volume 10.4 fL (7.4-10.4); Platelet Count 95 K/uL (130-400)
[2018-05-19 07:56] LABS: Basophils # (auto) 0.02 K/uL (0-0.2); Basophils % (auto) 0.4 %; Eosinophils # (auto) 0.14 K/uL (0-0.5); Eosinophils % (auto) 3.1 %; Immature Granulocytes # (auto) 0.01 K/uL (0.00-0.02); Immature Granulocytes % (auto) 0.2 %; Lymphocytes # (auto) 1.12 K/uL (1.2-3.4); Lymphocytes % (auto) 24.9 %; Monocytes # (auto) 0.34 K/uL (0.11-0.59); Monocytes % (auto) 7.6 %; Neutrophils # (auto) 2.86 K/uL (1.4-6.5); Neutrophils % (auto) 63.8 %
[2018-05-19 08:03] LABS: BUN Creatinine Ratio 13.1 (10-20); Calcium 9.1 mg/dl (8.5-10.1); Creatinine Clr Calc Pharmacy 44.2 ml/min; Est GFR (African American) 60.8; Est GFR (Non-African American) 52.4; Potassium 3.8 mmol/L (3.5-5.1)
[2018-05-19 08:04] LABS: Estimated Average Glucose 128 mg/dl
[2018-05-19 08:07] LABS: Estimated Average Glucose 126 mg/dl
[2018-05-19] MEDS: ROSUVASTATIN CALCIUM 10 MG TAB PO SCH ×2 (08:39→09:14)
[2018-05-19] MEDS: CHOLECALCIFEROL 1,000 UNITS TAB PO SCH (08:39)
[2018-05-19] MEDS: FUROSEMIDE 40 MG TAB PO SCH ×2 (08:40→11:06)
[2018-05-19] MEDS: AMITRIPTYLINE HCL 50 MG TAB PO SCH ×2 (08:40→19:42)
[2018-05-19] MEDS: METOPROLOL TARTRATE 25 MG TAB PO SCH (08:40)
[2018-05-19] MEDS: ROPINIROLE HCL 1 MG TABLET PO SCH ×3 (08:40→19:42)
[2018-05-19] MEDS: INSULIN ASPART 100 UNITS/ML 3 ML PEN SC SCH ×4 (08:41→22:04)
[2018-05-19 10:08] LABS: Folate (Folic Acid) 3.97 ng/ml (>5.38)
[2018-05-19] MEDS: SODIUM CHLORIDE 0.9% 1000ML 1,000 ML IV SCH (11:06)
[2018-05-19] MEDS: FOLIC ACID 1 MG TAB PO SCH (13:18)
[2018-05-19] MEDS: THIAMINE HCL 50 MG TABLET PO SCH (13:18)
--- NOTE | 2018-05-19 14:01 | Cardiology Consultation ---
Date of Consultation May 19, 2018 Assessment & Plan (1) Numbness: Possible TIA/stroke symptoms, although symptoms are atypical. The patient's INR was at goal at 2.7 (goal 2.5-3.5). She is not currently on antiplatelet therapy along with her valve due to history of anemia and superficial ecchymosis. She had been on both aspirin plus clopidogrel in addition to the Coumadin on a remote basis due to past embolic myocardial infarction related to her mechanical mitral valve and atrial fibrillation. Aspirin had been discontinued several years ago, and clopidogrel discontinued in December,. At this time her anemia is stable. She has minimal superficial bruising. We will resume clopidogrel 75 mg daily and continue Coumadin with goal INR of 2.5-3.5. She had a CT of the brain that was unremarkable. An MRI of the brain and not been ordered due to concerns that she was not a candidate due to her mechanical prosthesis. The patient actually had her identification card with her in her wallet. I made a copy of it, and shared it with the MRI laboratory secretary was going to assist me in researching to see if she is a candidate to have an MRI of the brain. I reviewed her record both at this institution as well as [facility], and I see no evidence of past MRI of the brain. As noted, she has a remote history of cardiac surgery with her prosthesis having been placed in 1993. I will make additional comments once we determine if she is a candidate for an MRI. (2) Atrial fibrillation: Continue current medications. (3) H/O mitral valve replacement with mechanical valve: As noted above The patient does have a history of bradycardia. Her EKG performed this hospital stay reveals atrial fibrillation at 68 bpm with left anterior fascicular block. On telemetry, heart rate is been stable in the 60 bpm range with chronic atrial fibrillation noted. History of Present Illness Attending Physician: Judith Villanueva, History of Present Illness Abdi Bowling is a 62-year-old female seen in cardiology consultation per the request of Dr. Villanueva for further assessment of the patient's subjective complaint of sensation of numbness around her mouth, lips, and fingertips. The patient states that she had onset of the symptoms yesterday. The improved overnight but came back again this morning. CT of the brain revealed no acute intracranial pathology. The patient's primary service sprinkler helper is Dr. Hadley Molina of our practice. She is actually been seen in hospital consultation by Dr. Molina in November 2017 when she presented with an episode concerning for syncope in November 2017. He had most recently seen her in post hospital follow-up in December,. She has a long-standing history of rheumatic heart disease and therefore underwent mechanical mitral valve replacement in 1993 receiving a mechanical [employer] Roe single tilting-disc prosthesis. She also has a history of chronic atrial fibrillation with severe left atrial enlargement and a past embolic myocardial infarction and TIA for which she had previously been treated with both dual antiplatelet therapy (aspirin and clopidogrel) in addition to Coumadin. A few years ago due to bleeding concerns aspirin was discontinued and she remained on therapy with Coumadin with goal INR of 2.5-3.5 and clopidogrel 75 mg daily through her hospital discharge in November 2017. In December 2017 when the patient was seen in cardiology follow-up she had issues with diffuse subcutaneous ecchymosis, and was also noted to have anemia. She had been referred to hematology and was evaluated for iron deficiency anemia, laboratory studies performed at that time also suggested a component of hemolytic anemia with elevation in her LDH and low haptoglobin levels. Her hemoglobin has been stable recently in the range of 9-10 g/dL. Allergies Allergy/AdvReac Type Severity Reaction Status Date / Time prochlorperazine Allergy Severe NUCHAL Verified 05/18/18 17:51 DYSTONIA promethazine Allergy Severe NUCHAL Verified 05/18/18 17:51 DYSTONIA PERRY Inhibitors Allergy Intermediate Cough Verified 05/18/18 17:51 benzyl alcohol Allergy Unknown unknown Verified 05/18/18 17:51 hydroxyzine Allergy Unknown UNKNOWN Verified 05/18/18 17:51 metformin AdvReac Intermediate Diarrhea Verified 05/18/18 17:51 tetracycline AdvReac Intermediate Gastrointestinal Verified 05/18/18 17:51 Upset Home Medications Home Medications Medication Instructions Recorded Confirmed Type cholecalciferol (vitamin D3) 1,000 unit PO QAM 12/05/17 05/18/18 History [Vitamin D3] metoprolol tartrate 25 mg PO QAM 12/05/17 05/18/18 History nitroglycerin [Nitrostat] 0.4 mg SUBLINGUAL DIRECTED PRN 12/05/17 05/18/18 History omeprazole 20 mg PO PM 12/05/17 05/18/18 History rosuvastatin 10 mg PO DAILY 12/05/17 05/18/18 History tramadol 50 mg PO TID PRN 12/05/17 05/18/18 History acetaminophen [Tylenol Extra 500 mg PO Q6H PRN 05/18/18 05/18/18 History Strength] amitriptyline 50 mg PO BID 05/18/18 05/18/18 History furosemide 40 mg PO MoWeFr@0900 05/18/18 05/18/18 History levothyroxine 100 mcg PO PM 05/18/18 05/18/18 History metoclopramide HCl [Reglan] 10 mg PO AC PRN 05/18/18 05/18/18 History ropinirole [Requip] 2 mg PO TID 05/18/18 05/18/18 History warfarin 5 mg PO 4XWK 05/18/18 05/18/18 History warfarin 7.5 mg PO 3XWK 05/18/18 05/18/18 History Patient History Medical History Anxiety CKD (chronic kidney disease), stage III Migraines Restless legs syndrome S/P tubal ligation TIA (transient ischemic attack) Atrial fib/flutter, transient Diabetes H/O radioactive iodine thyroid ablation H/O: hysterectomy HTN (hypertension) Surgical History S/P appy S/P MVR (mitral valve replacement) S/P T&A (status post tonsillectomy and adenoidectomy) S/P cholecystectomy Social History Communication Ability: Effective Beliefs That Will Affect Care: Mandaeism Current Living Situation: Parent Current Living Situation Comment: Mother lives with her. Other Information That Helps Us Care for You: No Feels Safe at Home: Yes Safety Concerns: Feels Safe At This Time Smoking Status: Never smoker Hx Alcohol Use: Yes Hx Substance Use: No Review of Systems 10 point review of systems was reviewed and is negative with the exception of that above Physical Exam Vital Signs (Past 24 Hours): Last Vital Signs Temp 36.7 C 05/19/18 11:24 Pulse 68 05/19/18 11:24 Resp 16 05/19/18 11:24 BP 134/77 05/19/18 11:24 Pulse Ox 99 05/19/18 11:24 Constitutional: well developed; no acute distress Respiratory: normal respiratory effort, lungs clear to auscultation Cardiovascular: Rate/Rhythm: + abnormal rhythm (Irregular rhythm, crisp prosthetic heart sounds noted) Heart Sounds: no murmur Vessels: no JVD Extremities: no edema Gastrointestinal (Abdomen): Percussion/Palpation: abdomen soft; abdomen nontender and abdomen not rigid Neurologic: Patient follows commands, conversant, no cognitive impairment, no focal deficits Results & Data Diagnostic Findings Summary of transthoracic echocardiogram performed today 05/19/18 and reviewed independently by the undersigned: Left ventricular wall motion is normal. The left ventricular ejection fraction is normal at 60-65%. The tilting disc mechanical mitral valve prosthesis excursion appears normal. The mitral valve diastolic gradients are borderline elevated and indeterminate for obstruction however excursion is normal on 2D evaluation. There is no significant mitral regurgitation visualized, although assessment is limited due to the presence of acoustic shadowing from the mechanical prosthesis . Moderate tricuspid regurgitation is present. Doppler findings do not suggest pulmonary hypertension. Mild to moderate aortic valve regurgitation is present. (1) Atrial fibrillation Atrial fibrillation type: unspecified Qualified Code(s): I48.91 - Unspecified atrial fibrillation
--- NOTE | 2018-05-19 14:49 | Procedure Note ---
EEG Procedure Note Date of Service May 19, 2018 Start / End Times Start Time: 0830 End Time: 0900 Referring Physician Aditya German MD History Syncopal event question seizure Home Medication List Home Medications Medication Instructions Recorded Confirmed Type cholecalciferol (vitamin D3) 1,000 unit PO QAM 12/05/17 05/18/18 History [Vitamin D3] metoprolol tartrate 25 mg PO QAM 12/05/17 05/18/18 History nitroglycerin [Nitrostat] 0.4 mg SUBLINGUAL DIRECTED PRN 12/05/17 05/18/18 History omeprazole 20 mg PO PM 12/05/17 05/18/18 History rosuvastatin 10 mg PO DAILY 12/05/17 05/18/18 History tramadol 50 mg PO TID PRN 12/05/17 05/18/18 History acetaminophen [Tylenol Extra 500 mg PO Q6H PRN 05/18/18 05/18/18 History Strength] amitriptyline 50 mg PO BID 05/18/18 05/18/18 History furosemide 40 mg PO MoWeFr@0900 05/18/18 05/18/18 History levothyroxine 100 mcg PO PM 05/18/18 05/18/18 History metoclopramide HCl [Reglan] 10 mg PO AC PRN 05/18/18 05/18/18 History ropinirole [Requip] 2 mg PO TID 05/18/18 05/18/18 History warfarin 5 mg PO 4XWK 05/18/18 05/18/18 History warfarin 7.5 mg PO 3XWK 05/18/18 05/18/18 History Inpatient Medication List Amitriptyline HCl (Elavil) 50 mg PO BID [facility] Stop: 06/17/18 20:59 Last Admin: 05/19/18 08:40 Dose: 50 mg Documented by: [id number] Admin: 05/18/18 21:13 Dose: 50 mg Documented by: [id number] Folic Acid (Folvite) 1 mg PO QAM [facility] Stop: 06/18/18 11:44 Last Admin: 05/19/18 13:18 Dose: 1 mg Documented by: [id number] Furosemide (Lasix) 40 mg PO MoWeFr@0900 [facility] Stop: 06/18/18 08:59 Last Admin: 05/19/18 11:06 Dose: Not Given Documented by: [id number] Insulin Aspart (Novolog Flexpen) 0 units SC ACHS [facility] Stop: 06/17/18 20:59 Last Admin: 05/19/18 11:35 Dose: Not Given Documented by: [id number] Cosigned by: [id number] Admin: 05/19/18 08:41 Dose: Not Given Documented by: [id number] Cosigned by: [id number] Admin: 05/18/18 21:13 Dose: Not Given Documented by: [id number] Cosigned by: [id number] Levothyroxine Sodium (Synthroid) 100 mcg PO DAILYBB [facility] Stop: 06/18/18 06:29 Last Admin: 05/19/18 05:53 Dose: 100 mcg Documented by: [id number] Metoprolol Tartrate (Lopressor) 25 mg PO [facility] Stop: 06/18/18 08:59 Last Admin: 05/19/18 08:40 Dose: 25 mg Documented by: [id number] Pantoprazole Sodium (Protonix) 40 mg PO PM [facility]; Protocol Stop: 06/17/18 20:59 Last Admin: 05/18/18 21:12 Dose: 40 mg Documented by: [id number] Ropinirole HCl (Requip) 2 mg PO TID [facility] Stop: 06/17/18 20:59 Last Admin: 05/19/18 13:19 Dose: 2 mg Documented by: [id number] Admin: 05/19/18 08:40 Dose: 2 mg Documented by: [id number] Admin: 05/18/18 21:12 Dose: 2 mg Documented by: [id number] Rosuvastatin Calcium (Crestor) 10 mg PO DAILY [facility] Stop: 06/18/18 08:59 Last Admin: 05/19/18 09:14 Dose: Not Given Documented by: [id number] Thiamine [facility]) [facility] Stop: 06/18/18 11:44 Last Admin: 05/19/18 13:18 Dose: 50 mg Documented by: [id number] Tramadol HCl (Ultram) 50 mg PO TID PRN PRN Reason: Pain Stop: 06/17/18 19:23 Last Admin: 05/19/18 05:53 Dose: 50 mg Documented by: [id number] Vitamin D (Vitamin D3) 1,[facility] Stop: 06/18/18 08:59 Last Admin: 05/19/18 08:39 Dose: 1,000 units Documented by: [id number] Warfarin Sodium (Coumadin) 5 mg PO SuTuThSa@1600 [facility] Stop: 06/17/18 19:14 Last Admin: 05/18/18 21:14 Dose: 5 mg Documented by: [id number] Discontinued Medications Sodium Chloride (Nss) 500 mls @ 999 mls/hr IV .Q31M ONE Stop: 05/18/18 17:08 Last Infusion: 05/18/18 17:29 Dose: 0 mls/hr Documented by: [id number] Admin: 05/18/18 16:59 Dose: 999 mls/hr Documented by: [id number] Sodium Chloride (Nss 1000ml) 1,000 mls @ 80 mls/hr IV .[id number] PRISCILA Stop: 06/17/18 19:44 Last Admin: 05/19/18 11:06 Dose: Not Given Documented by: [id number] Infusion: 05/19/18 11:06 Dose: 0 mls/hr Documented by: [id number] Admin: 05/18/18 21:15 Dose: 80 mls/hr Documented by: [id number] Description This is a 21 electrode EEG with a single channel dedicated to limited EKG. The electrodes were placed in accordance with the International 10-20 system. This EEG was done as a bedside recording with photic stimulation being the only stimulus parameter. Drowsiness and light sleep are not recorded. Video analysis patient moving the behavior was obtained. Under these conditions is evidence for normal-appearing background rhythm in the alpha range of up to 10 Hz maximum frequency and 30 V of maximal amplitude. This is maximum posterior head regions bilaterally symmetrical polymorphic mid frequency moderate voltage theta activity seen symmetrically over the central regions. Beta activity seen bifrontally. Photic stimulation induces no important changes. No time is evidence for potentially epileptogenic activity in the form of polyspike and spike-wave burst, focal sharp waves and focal spikes. Interpretation This is a normal EEG during wakefulness without evidence for focal or generalized encephalopathy and without evidence for potentially epileptogenic activity. Clinical Correlation This is a normal EEG failing to reveal any evidence for a focal generalized encephalopathy or potentially epileptogenic activity. Clinical correlation is required Aditya German MD
--- NOTE | 2018-05-19 15:19 | Neurology Consultation ---
Date of Consultation May 19, 2018 Assessment & Plan (1) Numbness: 1. CT head - no acute events 2. EEG no seizure focus 3. MRI brain with and without order- Dr Sutton cardiology - verified with MRI /valve comparability 4. comadin- INR 2.5-3.5 5. restart Plavix 75 mg - for stroke protection 6. PT/OT speech for any discharge needs 7. optimize HTN, DM, HLD LDL <70 8. carotid doppler - evaluation of vascular ordered follow up with Neurology 4-6 weeks after discharge Naomi Bowie PAC schedule (2) Slurred speech: 1. same as above Supervising Physician Co-Signing Physician Notes I have seen and discussed above patient with Dr Aditya German, neurology I have seen Ms. Bowling today in consultation reviewed her history, her imaging studies and I have discussed her case with Naomi Bowie and Judd Contrersa MD of cardiology. This woman clearly has rheumatic heart disease with multiple valve involvement standing mitral prosthesis placed in 1993 she has been on Coumadin in the past a combination of Coumadin and aspirin resulted in him a rigid knee effusions She presents now with several hour duration syndrome of bilateral facial arm and leg paresthesias without motor involvement and with slight dysarthric speech clearing after 3-4 hours and then accompanied by headache which she attributes to her lack of caffeinated beverages. Currently she is asymptomatic and her examination is unremarkable. She also has hypothyroidism and has a TSH currently on her replacement which is elevated at 11 The echocardiographic study shows no clear source of emboli other than the multiple abnormal rheumatic valves and we are going to go ahead with an MRI to see if she really has had an event that might theoretically be located in the brainstem although it would have to be extremely selective and spare motor pathways and extraocular movement pathways which would be unusual If we do event and we will have further justification for going back on a combination of Coumadin and antiplatelet treatment and Plavix and I believe cardiology feels that it would be safer to do this anyway even if we do not find a vascular event. Neurology will be back tomorrow to review the imaging studies and have more suggestions at that time and certainly will hold discussions with cardiology as well regarding future management Aditya German MD History of Present Illness Reason for Consultation: stroke like symptoms Requesting Physician: Judith Villanueva DO Attending Physician: Judith Villanueva DO History of Present Illness Abdi is a 62 year old female with PMH of rheumatic heart disease status post mitral mechanical heart valve on Coumadin and therapeutic presented with 1 day of bilateral lower face numbness, bilateral fingertip numbness and bilateral numbness on the bottoms of her feet. She reports waking up with this way and some slurred speech and her mother agrees she is speaking differently. She denies any tongue numbness and she denies any swelling of her mouth or tongue. She does report the day prior to arrival she was feeling lightheaded all day but this did not stop her from walking to [employer] and going through her daily activities. she did have one day of diarrhea last week. denies CP, SOB, abdominal pain, one sided weakness, numbness, tingling N, V, vision changes, bowel or bladder issues. Allergies Allergy/AdvReac Type Severity Reaction Status Date / Time prochlorperazine Allergy Severe NUCHAL Verified 05/18/18 17:51 DYSTONIA promethazine Allergy Severe NUCHAL Verified 05/18/18 17:51 DYSTONIA PERRY Inhibitors Allergy Intermediate Cough Verified 05/18/18 17:51 benzyl alcohol Allergy Unknown unknown Verified 05/18/18 17:51 hydroxyzine Allergy Unknown UNKNOWN Verified 05/18/18 17:51 metformin AdvReac Intermediate Diarrhea Verified 05/18/18 17:51 tetracycline AdvReac Intermediate Gastrointestinal Verified 05/18/18 17:51 Upset Home Medications Home Medications Medication Instructions Recorded Confirmed Type cholecalciferol (vitamin D3) 1,000 unit PO QAM 12/05/17 05/18/18 History [Vitamin D3] metoprolol tartrate 25 mg PO QAM 12/05/17 05/18/18 History nitroglycerin [Nitrostat] 0.4 mg SUBLINGUAL DIRECTED PRN 12/05/17 05/18/18 History omeprazole 20 mg PO PM 12/05/17 05/18/18 History rosuvastatin 10 mg PO DAILY 12/05/17 05/18/18 History tramadol 50 mg PO TID PRN 12/05/17 05/18/18 History acetaminophen [Tylenol Extra 500 mg PO Q6H PRN 05/18/18 05/18/18 History Strength] amitriptyline 50 mg PO BID 05/18/18 05/18/18 History furosemide 40 mg PO MoWeFr@0900 05/18/18 05/18/18 History levothyroxine 100 mcg PO PM 05/18/18 05/18/18 History metoclopramide HCl [Reglan] 10 mg PO AC PRN 05/18/18 05/18/18 History ropinirole [Requip] 2 mg PO TID 05/18/18 05/18/18 History warfarin 5 mg PO 4XWK 05/18/18 05/18/18 History warfarin 7.5 mg PO 3XWK 05/18/18 05/18/18 History Patient History Medical History Anxiety CKD (chronic kidney disease), stage III Migraines Restless legs syndrome S/P tubal ligation TIA (transient ischemic attack) Atrial fib/flutter, transient Diabetes H/O radioactive iodine thyroid ablation H/O: hysterectomy HTN (hypertension) Surgical History S/P appy S/P MVR (mitral valve replacement) S/P T&A (status post tonsillectomy and adenoidectomy) S/P cholecystectomy Social History Communication Ability: Effective Beliefs That Will Affect Care: Scientology Current Living Situation: Parent Current Living Situation Comment: Mother lives with her. Other Information That Helps Us Care for You: No Feels Safe at Home: Yes Safety Concerns: Feels Safe At This Time Smoking Status: Never smoker Hx Alcohol Use: Yes Hx Substance Use: No Physical Exam Vital Signs (Past 24 Hours): Last Vital Signs Temp 36.7 C 05/19/18 11:24 Pulse 68 05/19/18 11:24 Resp 16 05/19/18 11:24 BP 134/77 05/19/18 11:24 Pulse Ox 99 05/19/18 11:24 Physical Exam: Constitutional: appearance nourished, healthy and normal Ears, Nose, Mouth and Throat: mucous membranes moist, no injection and skin normal, eyes normal Cardiovascular: loud opening snap Respiratory: clear to auscultation (CTA) and no rales, ronchi or wheeze Musculoskeletal: no peripheral edema and good distal pulses Skin: no stigmata of neurocutaneous disease noted and normal and intact Eyes: extraocular muscles intact (EOMI) and pupils equal, round and reactive to light (PERRL) NEUROLOGIC EXAMINATION: Mental status: Alert and interactive Oriented to full date and location Oriented to person Speech speech lisping Cranial Nerves smile eye brow raise symmetric, tongue midline Reflexes: Deep tendon reflexes were symmetrical and graded 2/5. Sensory: light and cool touch Coordination: finger to nose no bi pass Gait/Stance: Posture sitting in bed able to move and readjust self Motor: Negative for pronator drift of out stretched arms with eyes closed. Strength: biceps triceps hand cellophane bath mixer bilaterally 5/5, hip flex patellar, plantar flex ext bilaterally Results & Data Laboratory Results Abnormal lab results 05/18/18 05/18/18 05/18/18 Range/Units 15:59 15:59 15:59 WBC (4.8-10.8) K/uL RBC 4.06 L (4.2-5.4) M/uL Hgb 11.1 L (12.0-16.0) g/dL Hct 35.0 L (37-47) % MCHC 31.7 L (32-36) g/dL RDW Std Deviation 49.6 H (36.4-46.3) fL RDW Coeff of Courtney 15.5 H (11.5-14.5) % Plt Count (130-400) K/uL MPV 11.3 H (7.4-10.4) fL Lymph # (Auto) 1.06 L (1.2-3.4) K/uL PT 25.7 H (9.0-12.0) Seconds INR 2.7 H (0.9-1.1) APTT 40.6 H (21.0-31.0) Seconds Chloride (98-107) mmol/L Creatinine 1.32 H (0.6-1.2) mg/dl Glucose 104 H (70-99) mg/dl Hemoglobin A1c (4.5-5.6) % Folate (>5.38) ng/ml TSH 11.200 H (0.300-4.500) uIu/ml 05/18/18 05/19/18 05/19/18 Range/Units 15:59 07:06 07:06 WBC 4.49 L (4.8-10.8) K/uL RBC 3.45 L (4.2-5.4) M/uL Hgb 9.3 L (12.0-16.0) g/dL Hct 29.9 L (37-47) % MCHC 31.1 L (32-36) g/dL RDW Std Deviation 49.8 H (36.4-46.3) fL RDW Coeff of Courtney 15.7 H (11.5-14.5) % Plt Count 95 L (130-400) K/uL MPV (7.4-10.4) fL Lymph # (Auto) 1.12 L (1.2-3.4) K/uL PT 26.0 H (9.0-12.0) Seconds INR 2.7 H (0.9-1.1) APTT (21.0-31.0) Seconds Chloride (98-107) mmol/L Creatinine (0.6-1.2) mg/dl Glucose (70-99) mg/dl Hemoglobin A1c 6.0 H (4.5-5.6) % Folate (>5.38) ng/ml TSH (0.300-4.500) uIu/ml 05/19/18 05/19/18 05/19/18 Range/Units 07:06 07:06 07:06 WBC (4.8-10.8) K/uL RBC (4.2-5.4) M/uL Hgb (12.0-16.0) g/dL Hct (37-47) % MCHC (32-36) g/dL RDW Std Deviation (36.4-46.3) fL RDW Coeff of Courtney (11.5-14.5) % Plt Count (130-400) K/uL MPV (7.4-10.4) fL Lymph # (Auto) (1.2-3.4) K/uL PT (9.0-12.0) Seconds INR (0.9-1.1) APTT (21.0-31.0) Seconds Chloride 110 H (98-107) mmol/L Creatinine (0.6-1.2) mg/dl Glucose (70-99) mg/dl Hemoglobin A1c 6.1 H (4.5-5.6) % Folate 3.97 L (>5.38) ng/ml TSH (0.300-4.500) uIu/ml Diagnostic Findings CT head- No acute intracranial findings. EEG This is a normal EEG during wakefulness without evidence for focal or generalized encephalopathy and without evidence for potentially epileptogenic activity. TTE- 60-65% Roe mechanical valve placed 1994
[2018-05-19] MEDS: WARFARIN SOD 7.5 MG TAB PO SCH (17:07)
[2018-05-19] MEDS: CLOPIDOGREL BISULFATE 75 MG TAB PO SCH (17:07)
[2018-05-19] MEDS: PANTOprazole 40 MG TAB PO SCH (19:41)
[2018-05-19] MEDS ORDERED: GADOBUTROL 65ML VIAL IV PRN (21:02)
--- NOTE | 2018-05-19 21:18 | Magnetic Resonance Report ---
MRI OF THE BRAIN COMBO CLINICAL HISTORY: Strokelike symptoms. Perioral numbness. COMPARISON STUDY: CT of the brain dated 05/18/2018. TECHNIQUE: MRI of the brain was performed utilizing various T1 and T2-weighted sequences in the axial , sagittal, and coronal planes. Contrast-enhanced sequences were acquired following the administratio n of 5.5 cc of Gadavist. FINDINGS: Brain parenchyma: There is mild subcortical and periventricular microangiopathic disease. Chronic lac unar infarcts identified within both cerebellar hemispheres. There is no hemorrhage or mass effect. T here is no restricted diffusion to suggest acute ischemia. No enhancing mass lesion is identified on the postcontrast images. Ahn-white matter differentiation is preserved. No extra-axial fluid collect ion is seen. The cerebellar tonsils are normal in configuration. Ventricles, sulci, and cisterns: Normal in configuration. Pituitary and sella: Unremarkable. Intracranial vasculature: Normal flow voids are maintained at the skull base. Orbits: The bony orbits are grossly intact. Orbital contents are normal in appearance. Sinuses and mastoids: Clear. Calvarium: Unremarkable. Cervical cord: Partially visualized cervical spinal cord is normal in morphology and signal intensity . IMPRESSION: No acute intracranial abnormality. Electronically signed by: Roberto Carlos Blandon M.D. 05/19/2018 9:17 PM
--- NOTE | 2018-05-19 21:56 | Ultrasound Report ---
ULTRASOUND OF THE CAROTID ARTERIES CLINICAL HISTORY: Strokelike symptoms. COMPARISON STUDY: No priors. TECHNIQUE: Real-time, grayscale, and color Doppler sonography of the carotid arteries is performed. I mages are reviewed in the transverse and longitudinal planes. FINDINGS: Blood pressure in the right arm measures 143/69 and blood pressure in the left arm measures 139/77. The carotid arteries are patent bilaterally and demonstrate antegrade flow. There is no significant a therosclerotic plaque identified. Normal doppler arterial waveforms are seen throughout. Velocity shira surements are listed below. Common carotid peak systolic velocity (cm/sec): RIGHT: 90 LEFT: 96 ICA proximal peak systolic velocity (cm/sec): RIGHT: 80 LEFT: 67 ICA mid peak systolic velocity (cm/sec): RIGHT: 68 LEFT: 64 ICA distal peak systolic velocity (cm/sec): RIGHT: 77 LEFT: 72 ICA/CC peak systolic ratio: RIGHT: 0.9 LEFT: 0.8 Antegrade flow was shown in the vertebral arteries. The external carotid arteries are patent. IMPRESSION: 1. There is no sonographic evidence of hemodynamically significant stenosis in the right or left torres tid arterial system. 2. Antegrade flow is shown in the vertebral arteries. Electronically signed by: Roberto Carlos Blandon M.D. 05/19/2018 9:55 PM
--- NOTE | 2018-05-19 23:33 | Hospitalist Progress Note ---
Date of Service May 19, 2018 Assessment & Plan (1) Numbness: Unclear etiology, added thiamine and folate empirically. Folate level was slightly low. Thiamine not tested. B12 within range. No MRI in setting of [facility] heart valve-appreciate Cardiology input on the safety of this. No headach e-doubt complicated migraine in the setting of no h/o aura or assoc migrainous symptoms in the past. She is not vegan and eats well. No known food allergies and mouth/lips/tongue not swollen or numb, blood sugars are well-controlled. Plavix was stopped within the last year because of significant bruising and patient also on coumadin. Cards to consider restarting this. (2) H/O mitral valve replacement with mechanical valve: Goal INR 2.5-3.5, currently within range. Trend INR daily (3) Hypothyroidism: TSH is 11 however, levothyroxine was recently increased from 75 p.o. daily to 100 p.o. daily. 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 She has always taken at this time and does not take it with any other medications or with dinner. Follow as outpatient (4) Diabetes type 2, controlled: Diet controlled diabetes, blood sugar checks before meals at bedtime with insulin for correction factor only. No carb coverage. A1c in a.m. (5) Atrial fibrillation: Persistent, on Coumadin, rate controlled with metoprolol 25 mg p.o. every morning. (6) DVT prophylaxis: Coumadin Full code Disposition-cont admission, home when medically stable. Judith Villanueva DO [facility] Hospitalist Subjective Doing well today. Numbness in feet resolved. Some persistent facial numbness, fingertip numbness and slurred speech still present. Physical Exam Vital Signs (Past 24 Hours): Last Vital Signs Temp 36.9 C 05/19/18 19:15 Pulse 76 05/19/18 19:15 Resp 18 05/19/18 19:15 BP 149/74 H 05/19/18 19:15 Pulse Ox 98 05/19/18 19:15 CONSTITUTIONAL: WNWD, vitals as above, generally well-appearing, no overt speech deficits, facial symmetry noted EYES: normal conjuctivae, no scleral icterus ENT:MMM NECK: trachea midline, no lymphadenopathy RESPIRATORY: CTAB, normal respiratory effort CARDIOVASCULAR: regular rate and rhythm, S1 and 2 heard without murmurs, gallops or rubs, mechanical valve audible on auscultation, no JVD, no peripheral edema GASTROINTESTINAL: normal bowel sounds, soft, nontender, nondistended MUSCULOSKELETAL: strength 5/5 throughout, head is normocephalic and atraumatic SKIN: warm and dry NEUROLOGIC: No facial palsy, no dysarthria. CN 2-12 intact, normal cognition PSYCHIATRIC: alert cooperative and oriented to person, place and time. Results & Data Laboratory Results Short CBC 05/19/18 Range/Units 07:06 WBC 4.49 L (4.8-10.8) K/uL Hgb 9.3 L (12.0-16.0) g/dL Hct 29.9 L (37-47) % Plt Count 95 L (130-400) K/uL BMP 05/19/18 07:06 Sodium 143 Potassium 3.8 Chloride 110 H Carbon Dioxide 28 BUN 15 Creatinine 1.11 Glucose 74 Calcium 9.1 Medications Administered Current Inpatient Medications Amitriptyline HCl (Elavil) 50 mg PO BID PRISC[facility] Stop: 06/17/18 20:59 Last Admin: 05/19/18 19:42 Dose: 50 mg Documented by: Clopidogrel Bisulfate (Plavix) 75 mg PO QAM [facility] Stop: 06/18/18 14:29 Last Admin: 05/19/18 17:07 Dose: 75 mg Documented by: Dextrose (Dextrose 50%) 25 - 50 ml IV UD PRN; Protocol PRN Reason: Hypoglycemia Protocol Stop: 06/17/18 19:32 Folic Acid (Folvite) 1 mg PO QAM [facility] Stop: 06/18/18 11:44 Last Admin: 05/19/18 13:18 Dose: 1 mg Documented by: Furosemide (Lasix) 40 mg PO MoWeFr@0900 [facility] Stop: 06/18/18 08:59 Last Admin: 05/19/18 11:06 Dose: Not Given Documented by: Gadobutrol (Gadavist 65ml) 5.5 ml IV ONCE PRN PRN Reason: Interaction Checking Stop: 05/23/18 21:01 Last Admin: 05/19/18 21:02 Dose: 5.5 ml Documented by: Glucagon (Glucagen) 1 mg SQ UD PRN; Protocol PRN Reason: Hypoglycemia Protocol Stop: 06/17/18 19:32 Glucose (Glucose 40%) 15 - 30 gm PO UD PRN; Protocol PRN Reason: Hypoglycemia Protocol Stop: 06/17/18 19:32 Glucose (Dex4 Glucose) 4 - 8 tabs PO UD PRN; Protocol PRN Reason: Hypoglycemia Protocol Stop: 06/17/18 19:32 Insulin Aspart (Novolog Flexpen) 0 units SC ACHS [facility] Stop: 06/17/18 20:59 Last Admin: 05/19/18 22:04 Dose: Not Given Documented by: Levothyroxine Sodium (Synthroid) 100 mcg PO DAILYBB [facility] Stop: 06/18/18 06:29 Last Admin: 05/19/18 05:53 Dose: 100 mcg Documented by: Metoclopramide HCl (Reglan) 10 mg PO AC PRN PRN Reason: Nausea Stop: 06/17/18 19:23 Metoprolol [facility]) [facility] Stop: 06/18/18 08:59 Last Admin: 05/19/18 08:40 Dose: 25 mg Documented by: Miscellaneous (Carbohydrates For Hypoglycemia) 15 - 30 gm PO UD PRN PRN Reason: Hypoglycemia Treatment Stop: 06/17/18 19:32 Miscellaneous Information (Pharmacist Discharge Med Rec Consult) 1 ea N/A UD PRN PRN Reason: Consult Stop: 06/17/18 19:32 Nitroglycerin (Nitrostat) 0.4 mg SL PRN PRN PRN Reason: Chest Pain Stop: 06/17/18 19:23 Pantoprazole Sodium (Protonix) 40 mg PO PM [facility]; Protocol Stop: 06/17/18 20:59 Last Admin: 05/19/18 19:41 Dose: 40 mg Documented by: Ropinirole HCl (Requip) 2 mg PO TID [facility] Stop: 06/17/18 20:59 Last Admin: 05/19/18 19:42 Dose: 2 mg Documented by: Rosuvastatin Calcium (Crestor) 10 mg PO DAILY [facility] Stop: 06/18/18 08:59 Last Admin: 05/19/18 09:14 Dose: Not Given Documented by: Thiamine HCl (Vitamin B-1) 50 mg PO QAM [facility] Stop: 06/18/18 11:44 Last Admin: 05/19/18 13:18 Dose: 50 mg Documented by: Tramadol HCl (Ultram) 50 mg PO TID PRN PRN Reason: Pain Stop: 06/17/18 19:23 Last Admin: 05/19/18 05:53 Dose: 50 mg Documented by: Vitamin D (Vitamin D3) 1,000 units PO QAM [facility] Stop: 06/18/18 08:59 Last Admin: 05/19/18 08:39 Dose: 1,000 units Documented by: Warfarin Sodium (Coumadin) 5 mg PO SuTuThSa@1600 [facility] Stop: 06/17/18 19:14 Last Admin: 05/18/18 21:14 Dose: 5 mg Documented by: Warfarin Sodium (Coumadin) 7.5 mg PO MoWeFr@1600 [facility] Stop: 06/18/18 15:59 Last Admin: 05/19/18 17:07 Dose: 7.5 mg Documented by: (1) Atrial fibrillation Atrial fibrillation type: unspecified Qualified Code(s): I48.91 - Unspecified atrial fibrillation (2) Diabetes type 2, controlled Diabetes mellitus complication status: without complication Diabetes mellitus mcfp insulin use: without terminal clerk use Qualified Code(s): E11.9 - Type 2 diabetes mellitus without complications
[2018-05-20] MEDS: TRAMADOL HCL 50 MG TABLET PO PRN ×3 (00:34→20:23)
[2018-05-20 07:28] LABS: Hematocrit (blood only) 30.7 % (37-47); Hemoglobin 9.6 g/dL (12.0-16.0); Mean Corpuscular Hemoglobin 26.8 pg (25-34); Mean Corpuscular Hgb Conc 31.3 g/dL (32-36); Mean Corpuscular Volume 85.8 fL (80-100); RDW Coefficient of Variation 15.9 % (11.5-14.5); RDW Standard Deviation 49.5 fL (36.4-46.3); Red Blood Count 3.58 M/uL (4.2-5.4); White Blood Count 5.44 K/uL (4.8-10.8)
[2018-05-20 07:38] LABS: INR 2.9 (0.9-1.1); Prothrombin Time 27.5 Seconds (9.0-12.0)
[2018-05-20 07:56] LABS: Mean Platelet Volume 11.1 fL (7.4-10.4); Platelet Count 97 K/uL (130-400)
[2018-05-20 07:59] LABS: Calcium 9.7 mg/dl (8.5-10.1); Creatinine Clr Calc Pharmacy 43.1 ml/min; Est GFR (African American) 58.9; Est GFR (Non-African American) 50.8
[2018-05-20 08:22] LABS: Basophils # (auto) 0.01 K/uL (0-0.2); Basophils % (auto) 0.2 %; Eosinophils # (auto) 0.15 K/uL (0-0.5); Eosinophils % (auto) 2.8 %; Immature Granulocytes # (auto) 0.01 K/uL (0.00-0.02); Immature Granulocytes % (auto) 0.2 %; Lymphocytes % (auto) 22.1 %; Monocytes # (auto) 0.46 K/uL (0.11-0.59); Monocytes % (auto) 8.5 %; Neutrophils # (auto) 3.61 K/uL (1.4-6.5); Neutrophils % (auto) 66.2 %
[2018-05-20] MEDS: AMITRIPTYLINE HCL 50 MG TAB PO SCH ×2 (08:35→20:20)
[2018-05-20] MEDS: METOPROLOL TARTRATE 25 MG TAB PO SCH (08:36)
[2018-05-20] MEDS: ROPINIROLE HCL 1 MG TABLET PO SCH ×3 (08:36→20:21)
[2018-05-20] MEDS: THIAMINE HCL 50 MG TABLET PO SCH (08:36)
[2018-05-20] MEDS: CHOLECALCIFEROL 1,000 UNITS TAB PO SCH (08:36)
[2018-05-20] MEDS: INSULIN ASPART 100 UNITS/ML 3 ML PEN SC SCH ×4 (08:37→20:21)
[2018-05-20] MEDS: LEVOTHYROXINE SODIUM 100 MCG TABLET PO SCH (08:37)
[2018-05-20] MEDS: FOLIC ACID 1 MG TAB PO SCH (08:37)
[2018-05-20] MEDS: CLOPIDOGREL BISULFATE 75 MG TAB PO SCH (08:37)
--- NOTE | 2018-05-20 10:45 | Cardiology Progress Note ---
Date of Service May 20, 2018 Assessment & Plan (1) Numbness: MRI revealed mild subcortical and periventricular microangiopathic disease. Chronic lacunar infarcts identified within both cerebellar hemispheres. No hemorrhage or mass-effect. There is no restricted diffusion to suggest acute ischemia. Carotid duplex revealed no significant obstructive disease. -Patient with ongoing perioral numbness, which I think is atypical for strokelike symptoms given negative MRI. Her INR is within the therapeutic goal, 2.9, with goal of 2.5-3.5. She has tolerated 3 introduction of clopidogrel 75 mg daily. (2) H/O mitral valve replacement with mechanical valve: Stable echocardiogram findings. Continue Coumadin plus clopidogrel. (3) Atrial fibrillation: She has had history of borderline symptomatic bradycardia. Telemetry reveals atrial fibrillation with stable ventricular rates in the range of 70 to 90 bpm. (4) Anemia: Hemoglobin, 9.6. Stable. No additional cardiac work-up necessary at present. Subjective Chief complaint: Follow-up perioral numbness, fingertip numbness Subjective: Patient states that overall she is feeling well. Her fingertip numbness has resolved. She has mild numbness around her lips still. Physical Exam Vital Signs (Past 24 Hours): Last Vital Signs Temp 36.5 C 05/20/18 07:22 Pulse 81 05/20/18 07:22 Resp 18 05/20/18 07:22 BP 138/72 05/20/18 07:22 Pulse Ox 100 05/20/18 07:22 Constitutional: WD/WN, vitals as above Respiratory: normal respiratory effort, lungs clear to auscultation Cardiovascular: Rate/Rhythm: + abnormal rhythm (Irregular rhythm, crisp prosthetic heart sounds noted) Vessels: no JVD Extremities: no edema Gastrointestinal (Abdomen): normal bowel sounds, soft, nontender, no hepatosplenomegaly Skin: Minimum subcutaneous ecchymosis on her arms Neurologic: moves all extremities and awake; no focal motor deficits Results & Data Laboratory Results INR today 05/20/2018: 2.9 Hemoglobin 9.6 Diagnostic Findings Carotid duplex, no significant stenosis of the bilateral internal carotid arteries MRI of the brain: No significant intracranial abnormality (1) Atrial fibrillation Atrial fibrillation type: unspecified Qualified Code(s): I48.91 - Unspecified atrial fibrillation
--- NOTE | 2018-05-20 14:09 | Hospitalist Progress Note ---
Date of Service May 20, 2018 Assessment & Plan (1) Numbness: Improving after thiamine and folate administration started this admission. Plavix added back to regimen--stopped as outpatient during the last year for significant bruising. Persistent speech deficits--uncertain if new intracranial event, this was simply added prophylaxis. BRain MRI is negative. Other considerations that are less likely but are considered include paraneoplastic syndrome, monoclonal gammopathy, WM, or collagen vascular diseases. Routine cancer screening is UTD per patient, no recent constititional symptoms such as weight loss, fevers, night sweats. ESR, CRP, quant Ig panel in am. Cont vitamin supplementation on discharge. (2) H/O mitral valve replacement with mechanical valve: Goal INR 2.5-3.5, currently within range. Trend INR daily (3) Hypothyroidism: recent dose change last week. cont outpatient monitoring. (4) Diabetes type 2, controlled: Diet controlled diabetes, blood sugar checks before meals at bedtime with insulin for correction factor only. No carb coverage. A1c in a.m. (5) Atrial fibrillation: Persistent, on Coumadin, rate controlled with metoprolol 25 mg p.o. every morning. (6) DVT prophylaxis: Coumadin Full code Disposition-likely DC home in am. Judith Villanueva DO [facility] Hospitalist Subjective Feels her numbness is improving. MRI negative for acute IC pathology. Folate and thiamine were started yesterday. Tolerating PO. she still feels that her speech is off. Physical Exam Vital Signs (Past 24 Hours): Last Vital Signs Temp 36.8 C 05/20/18 12:38 Pulse 74 05/20/18 12:38 Resp 22 05/20/18 12:38 BP 137/72 05/20/18 12:38 Pulse Ox 97 05/20/18 12:38 CONSTITUTIONAL: WNWD, vitals as above, generally well-appearing, no overt speech deficits, facial symmetry noted ENT: MMM NECK: trachea midline RESPIRATORY:CTAB, No wheezes, normal respiratory effort CARDIOVASCULAR: regular rate and rhythm, S1 and 2 heard without murmurs, gallops or rubs, mechanical valve audible on auscultation, no JVD, no peripheral edema GASTROINTESTINAL: normal bowel sounds, soft, nontender, nondistended MUSCULOSKELETAL: strength 5/5 throughout, head is normocephalic and atraumatic SKIN: warm and dry NEUROLOGIC: no gross focal deficits. PSYCHIATRIC: alert cooperative and oriented to person, place and time. Results & Data Laboratory Results Short CBC 05/20/18 Range/Units 07:11 WBC 5.44 (4.8-10.8) K/uL Hgb 9.6 L (12.0-16.0) g/dL Hct 30.7 L (37-47) % Plt Count 97 L (130-400) K/uL BMP 05/20/18 07:11 Sodium 141 Potassium 4.0 Chloride 108 H Carbon Dioxide 29 BUN 11 Creatinine 1.14 Glucose 96 Calcium 9.7 Diagnostic Findings MRI OF THE BRAIN COMBO CLINICAL HISTORY: Strokelike symptoms. Perioral numbness. COMPARISON STUDY: CT of the brain dated 05/18/2018. TECHNIQUE: MRI of the brain was performed utilizing various T1 and T2-weighted sequences in the axial, sagittal, and coronal planes. Contrast-enhanced sequences were acquired following the administration of 5.5 cc of Gadavist. FINDINGS: Brain parenchyma: There is mild subcortical and periventricular microangiopathic disease. Chronic lacunar infarcts identified within both cerebellar hemispheres. There is no hemorrhage or mass effect. There is no restricted diffusion to suggest acute ischemia. No enhancing mass lesion is identified on the postcontrast images. Ahn-white matter differentiation is preserved. No extra- axial fluid collection is seen. The cerebellar tonsils are normal in configuration. Ventricles, sulci, and cisterns: Normal in configuration. Pituitary and sella: Unremarkable. Intracranial vasculature: Normal flow voids are maintained at the skull base. Orbits: The bony orbits are grossly intact. Orbital contents are normal in appearance. Sinuses and mastoids: Clear. Calvarium: Unremarkable. Cervical cord: Partially visualized cervical spinal cord is normal in morphology and signal intensity. IMPRESSION: No acute intracranial abnormality. Medications Administered Current Inpatient Medications Amitriptyline HCl (Elavil) 50 mg PO BID PRISCILA Stop: 06/17/18 20:59 Last Admin: 05/20/18 08:35 Dose: 50 mg Documented by: Clopidogrel Bisulfate (Plavix) 75 mg PO QAM PRISCILA Stop: 06/18/18 14:29 Last Admin: 05/20/18 08:37 Dose: 75 mg Documented by: Dextrose (Dextrose 50%) 25 - 50 ml IV UD PRN; Protocol PRN Reason: Hypoglycemia Protocol Stop: 06/17/18 19:32 Folic Acid (Folvite) 1 mg PO QAM [facility] Stop: 06/18/18 11:44 Last Admin: 05/20/18 08:37 Dose: 1 mg Documented by: Furosemide (Lasix) 40 mg PO MoWeFr@0900 [facility] Stop: 06/18/18 08:59 Last Admin: 05/19/18 11:06 Dose: Not Given Documented by: Gadobutrol (Gadavist 65ml) 5.5 ml IV ONCE PRN PRN Reason: Interaction Checking Stop: 05/23/18 21:01 Last Admin: 05/19/18 21:02 Dose: 5.5 ml Documented by: Glucagon (Glucagen) 1 mg SQ UD PRN; Protocol PRN Reason: Hypoglycemia Protocol Stop: 06/17/18 19:32 Glucose (Glucose 40%) 15 - 30 gm PO UD PRN; Protocol PRN Reason: Hypoglycemia Protocol Stop: 06/17/18 19:32 Glucose (Dex4 Glucose) 4 - 8 tabs PO UD PRN; Protocol PRN Reason: Hypoglycemia Protocol Stop: 06/17/18 19:32 Insulin Aspart (Novolog Flexpen) 0 units SC ACHS [facility] Stop: 06/17/18 20:59 Last Admin: 05/20/18 11:45 Dose: Not Given Documented by: Levothyroxine Sodium (Synthroid) 100 mcg PO DAILYPSYCHIATRIC Stop: 06/18/18 06:29 Last Admin: 05/20/18 08:37 Dose: 100 mcg Documented by: Metoclopramide HCl (Reglan) 10 mg PO AC PRN PRN Reason: Nausea Stop: 06/17/18 19:23 Metoprolol Tartrate ([facility]opressor) [facility] [place]: 06/18/18 08:59 Last Admin: 05/20/18 08:36 Dose: 25 mg Documented by: Miscellaneous (Carbohydrates For Hypoglycemia) 15 - 30 gm PO UD PRN PRN Reason: Hypoglycemia Treatment Stop: 06/17/18 19:32 Nitroglycerin (Nitrostat) 0.4 mg SL PRN PRN PRN Reason: Chest Pain Stop: 06/17/18 19:23 Pantoprazole Sodium (Protonix) 40 mg PO PM [facility]; Protocol Stop: 06/17/18 20:59 Last Admin: 05/19/18 19:41 Dose: 40 mg Documented by: Ropinirole HCl (Requip) 2 mg PO TID [facility] Stop: 06/17/18 20:59 Last Admin: 05/20/18 08:36 Dose: 2 mg Documented by: Rosuvastatin Calcium (Crestor) 10 mg PO DAILY [facility] Stop: 06/18/18 08:59 Last Admin: 05/19/18 09:14 Dose: Not Given Documented by: Thiamine HCl (Vitamin B-1) 50 mg PO QAM [facility] Stop: 06/18/18 11:44 Last Admin: 05/20/18 08:36 Dose: 50 mg Documented by: Tramadol HCl (Ultram) 50 mg PO TID PRN PRN Reason: Pain Stop: 06/17/18 19:23 Last Admin: 05/20/18 11:44 Dose: 50 mg Documented by: Vitamin D (Vitamin D3) 1,000 units PO QAM [facility] Stop: 06/18/18 08:59 Last Admin: 05/20/18 08:36 Dose: 1,000 units Documented by: Warfarin Sodium (Coumadin) 5 mg PO SuTuThSa@1600 [facility] Stop: 06/17/18 19:14 Last Admin: 05/18/18 21:14 Dose: 5 mg Documented by: Warfarin Sodium (Coumadin) 7.5 mg PO MoWeFr@1600 [facility] Stop: 06/18/18 15:59 Last Admin: 05/19/18 17:07 Dose: 7.5 mg Documented by: (1) Atrial fibrillation Atrial fibrillation type: unspecified Qualified Code(s): I48.91 - Unspecified atrial fibrillation (2) Diabetes type 2, controlled Diabetes mellitus complication status: without complication Diabetes mellitus terminal worker insulin use: without [facility] use Qualified Code(s): E11.9 - Type 2 diabetes mellitus without complications
--- NOTE | 2018-05-20 15:17 | Neurology Progress Note ---
Date of Service May 20, 2018 Assessment & Plan (1) Numbness: 1. CT head - no acute events 2. EEG no seizure focus 3. MRI brain with and without order- no acute findings 4. coumadin- INR 2.5-3.5 5. restart Plavix 75 mg - for stroke protection 6. PT/OT speech for any discharge needs 7. optimize HTN, DM, HLD LDL <70 8. carotid doppler - no high grade stenosis will sign off for now call with questions concerns follow up with Neurology 4-6 weeks after discharge Naomi Bowie PAC schedule (2) Slurred speech: 1. same as above Supervising Physician Co-Signing Physician Notes I have seen and discussed above patient with Dr Aditya German, neurology I seen Mrs. Bowling today, examined her, reviewed her MR I results and am pleased to report that there is no evidence for completed vascular event and only evidence for some low-grade small vessel events that are not surprising in light of her age. She brings up with me today the possibility that some of her symptoms could have been "stress" related to the some unpleasant interaction she is had with her [id number] over the past several months but there wasno particular acute event on the day that her symptoms developed and I still think this was likely a transient ischemic event involving the brainstem or possibly a late life onset migraine and woman whose had migraine headaches most of her life at low frequency. This point she is being discharged on Coumadin and Plavix as per cardiology Neurology really does not need to see her on a regular basis and follow-up unless other neurologic issues would emerge Where therefore signing off the case today but would be most willing to reassess her should things change prior to discharge Aditya Johns Abdi is a 62 year old female with PMH of rheumatic heart disease status post mitral mechanical heart valve on Coumadin and therapeutic presented with 1 day of bilateral lower face numbness, bilateral fingertip numbness and bilateral numbness on the bottoms of her feet. She reports waking up with this way and some slurred speech and her mother agrees she is speaking differently. She denies any tongue numbness and she denies any swelling of her mouth or tongue. She does report the day prior to arrival she was feeling lightheaded all day but this did not stop her from walking to [place] and going through her daily activities. she did have one day of diarrhea last week. Today she states she is feeling better. She had a headache this am but it has resolved. She is aware the MRI did not have signs of stroke. denies CP, SOB, abdominal pain, one sided weakness, numbness, tingling N, V, vision changes, bowel or bladder issues. Physical Exam Vital Signs (Past 24 Hours): Last Vital Signs Temp 36.8 C 05/20/18 12:38 Pulse 74 05/20/18 12:38 Resp 22 05/20/18 12:38 BP 137/72 05/20/18 12:38 Pulse Ox 97 05/20/18 12:38 Gen: alert NAD lungs CTA CV loud opening snap no pronator drift biceps triceps hand manager infusion 5/5 bilaterally hip flex ext bilaterally 5/5 tandem gait steady finger to nose no bi pass Results & Data Laboratory Results Abnormal lab results 05/20/18 05/20/18 05/20/18 Range/Units 07:11 07:11 07:11 RBC 3.58 L (4.2-5.4) M/uL Hgb 9.6 L (12.0-16.0) g/dL Hct 30.7 L (37-47) % MCHC 31.3 L (32-36) g/dL RDW Std Deviation 49.5 H (36.4-46.3) fL RDW Coeff of Courtney 15.9 H (11.5-14.5) % Plt Count 97 L (130-400) K/uL MPV 11.1 H (7.4-10.4) fL PT 27.5 H (9.0-12.0) Seconds INR 2.9 H (0.9-1.1) Chloride 108 H (98-107) mmol/L Diagnostic Findings MRI brain with and without-No acute intracranial abnormality. carotid doppler-There is no sonographic evidence of hemodynamically significant stenosis in the right or left carotid arterial system. Antegrade flow is shown in the vertebral arteries.
[2018-05-20] MEDS: WARFARIN SOD 5 MG TAB PO SCH (15:26)
[2018-05-20] MEDS: PANTOprazole 40 MG TAB PO SCH (20:20)
[2018-05-21] MEDS: TRAMADOL HCL 50 MG TABLET PO PRN (02:10)
[2018-05-21] MEDS: LEVOTHYROXINE SODIUM 100 MCG TABLET PO SCH (05:46)
[2018-05-21 07:23] LABS: Basophils # (auto) 0.01 K/uL (0-0.2); Basophils % (auto) 0.2 %; Eosinophils # (auto) 0.14 K/uL (0-0.5); Eosinophils % (auto) 2.2 %; Hematocrit (blood only) 30.9 % (37-47); Hemoglobin 9.7 g/dL (12.0-16.0); Immature Granulocytes # (auto) 0.01 K/uL (0.00-0.02); Immature Granulocytes % (auto) 0.2 %; Lymphocytes # (auto) 1.07 K/uL (1.2-3.4); Lymphocytes % (auto) 16.5 %; Mean Corpuscular Hemoglobin 27.2 pg (25-34); Mean Corpuscular Hgb Conc 31.4 g/dL (32-36); Mean Corpuscular Volume 86.6 fL (80-100); Mean Platelet Volume 11.2 fL (7.4-10.4); Monocytes % (auto) 9.3 %; Neutrophils # (auto) 4.64 K/uL (1.4-6.5); Neutrophils % (auto) 71.6 %; Platelet Count 104 K/uL (130-400); RDW Coefficient of Variation 16.1 % (11.5-14.5); RDW Standard Deviation 50.8 fL (36.4-46.3); Red Blood Count 3.57 M/uL (4.2-5.4); White Blood Count 6.47 K/uL (4.8-10.8)
[2018-05-21 07:46] LABS: INR 4.3 (0.9-1.1); Prothrombin Time 39.5 Seconds (9.0-12.0)
[2018-05-21 07:47] LABS: BUN Creatinine Ratio 8.3 (10-20); Calcium 9.5 mg/dl (8.5-10.1); Creatinine Clr Calc Pharmacy 41.9 ml/min; Est GFR (Non-African American) 49.2; Potassium 3.9 mmol/L (3.5-5.1)
[2018-05-21 08:04] LABS: C Reactive Protein 0.65 mg/dl (0-0.29)
[2018-05-21] MEDS: ROPINIROLE HCL 1 MG TABLET PO SCH ×2 (08:37→15:31)
[2018-05-21] MEDS: AMITRIPTYLINE HCL 50 MG TAB PO SCH (08:37)
[2018-05-21] MEDS: CLOPIDOGREL BISULFATE 75 MG TAB PO SCH (08:37)
[2018-05-21] MEDS: FOLIC ACID 1 MG TAB PO SCH (08:37)
[2018-05-21] MEDS: CHOLECALCIFEROL 1,000 UNITS TAB PO SCH (08:37)
[2018-05-21] MEDS: METOPROLOL TARTRATE 25 MG TAB PO SCH (08:37)
[2018-05-21] MEDS: THIAMINE HCL 50 MG TABLET PO SCH (08:38)
[2018-05-21] MEDS: INSULIN ASPART 100 UNITS/ML 3 ML PEN SC SCH ×2 (09:10→12:15)
--- NOTE | 2018-05-21 14:02 | Discharge Summary ---
Date of Service May 21, 2018 Admission HPI Per Admitting Provider 62-year-old female with history of rheumatic heart disease status post mitral mechanical heart valve on Coumadin and therapeutic presented with 1 day of bilateral lower face numbness, bilateral fingertip numbness and bilateral numbness on the bottoms of her feet. She reports waking up with this. She also reports some slurred speech and her mother agrees she is speaking differently. There is no other gross focal deficit that is reported or seen on exam. She denies any history of confusion, changes in vision, headaches, recent migraines, (of which she has a history.), She is not vegan, she denies any food allergies or eating any new strange foods. She denies any tongue numbness and she denies any swelling of her mouth or tongue. She denies any focal weakness in her arms or legs and no generalized weakness. She does report the day prior to arrival she was feeling lightheaded all day but this did not stop her from walking to [place] and going through her daily activities. She otherwise denies any recent infections, she denies any UTI symptoms, she denies any changes in bowel aside from diarrhea for 1 day last week. She denies any chest pain, shortness of breath, abdominal pain, weight gain or swelling. The numbness in her feet is not causing her difficulties with walking. She is a diabetic but is well controlled. She denies a history of neuropathy. Admission Exam Per Admitting Provider CONSTITUTIONAL: WNWD, vitals as above, generally well-appearing, no overt speech deficits, facial symmetry noted EYES: EOMI bilaterally, PERRL, normal conjuctivae, no scleral icterus ENT: oropharynx clear, no maxillary or ethmoid sinus tenderness NECK: trachea midline, no lymphadenopathy RESPIRATORY: Crackles at right base otherwise clear to auscultation bilaterally. No wheezes, normal respiratory effort CARDIOVASCULAR: regular rate and rhythm, S1 and 2 heard without murmurs, gallops or rubs, mechanical valve audible on auscultation, no JVD, no peripheral edema GASTROINTESTINAL: normal bowel sounds, soft, nontender, nondistended MUSCULOSKELETAL: strength 5/5 throughout, head is normocephalic and atraumatic SKIN: warm and dry NEUROLOGIC: patellar and BR DTR 2+ bilat. PERRL, EOMI, no facial palsy, no dysarthria. CN 2-12 intact, decreased facial sensation bilaterally in the lower face, no decreased sensation to touch in hands, decreased sensation on soles of feet bilaterally to touch, normal cognition, normal speech, no tremor PSYCHIATRIC: alert cooperative and oriented to person, place and time. Principal Diagnosis Stroke like Symptoms Discharge Exam ROS-No Headache, No Visual Changes, No Nausea, No Vomiting, No Fever, No Chills, No Neck Pain or Stiffness, No Chest Pain, No Palpitations, No SOB, No BENAVIDES, No Cough, No Sputum, No Wheezing, No Abdominal Pain, No Diarrhea, No Hematemesis, No Hemoptysis, No Unexpected Weight Loss, No Flank pain, No Melena, No Hematochezia, No Frequency, No Urgency, No Burning, No Hematuria, No Rashes, No Diaphoresis. Appetite is Normal Physical Exam Gen-AAO x 3, NAD, Afebrile Head-NCAT, EOMI, PERRLA, Anicteric Sclera, No Posterior Pharyngeal Erythema Neck-Supple, No JVD, No Thyromegaly, No Masses, No LAD, No Bruits Lungs-Clear to Auscultation Bilaterally, No Rales, No Rhonchi, No Wheezing, No Crepitus Chest-No S4, +S1, +S2, No S3, No Murmurs, No Rubs, No Gallops, No Ectopy Abdomen-Soft, Bowel Sounds Present, Non Tender, Non Distended, No Hepatomegaly, No Splenomegaly, No Palpable Masses, No Rebound, No Rigidity, No Guarding Musculoskeletal-Full Range of Motion Bilaterally, No CVAT Extremities-No Cyanosis, No Clubbing, No Edema Nuero-Cranial Nerves II-XII grossly intact, Motor WNL, DTRs WNL, Strength WNL, Non Focal Psych-Normal Mood Discharge Data Allergies Allergy/AdvReac Type Severity Reaction Status Date / Time prochlorperazine Allergy Severe NUCHAL Verified 05/18/18 17:51 DYSTONIA promethazine Allergy Severe NUCHAL Verified 05/18/18 17:51 DYSTONIA PERRY Inhibitors Allergy Intermediate Cough Verified 05/18/18 17:51 benzyl alcohol Allergy Unknown unknown Verified 05/18/18 17:51 hydroxyzine Allergy Unknown UNKNOWN Verified 05/18/18 17:51 metformin AdvReac Intermediate Diarrhea Verified 05/18/18 17:51 tetracycline AdvReac Intermediate Gastrointestinal Verified 05/18/18 17:51 Upset fartun AdvReac Mild Agitated Verified 05/20/18 14:08 Consultations 05/18/18 17:41 ED Decision to Admit Stat 05/18/18 19:33 Consult Case Management - Discharge Planning Routine Consult Neurology Routine 05/18/18 19:43 Consult Cardiology Routine Ordered Studies 05/18/18 16:38 CT head/brain wo con Stat 05/19/18 14:42 MR brain wo/w con Routine IMPRESSION: No acute intracranial abnormality. 05/19/18 14:46 US carotid doppler BI Routine Negative Current Diagnoses Anemia, unspecified (05/18/18) Hypothyroidism, unspecified (05/18/18) Type 2 diabetes mellitus without complications (05/18/18) Unspecified atrial fibrillation (05/18/18) Anesthesia of skin (05/18/18) Slurred speech (05/18/18) Presence of prosthetic heart valve (05/18/18) Allergies prochlorperazine Allergy (Severe, Verified 05/18/18 17:51) NUCHAL DYSTONIA promethazine Allergy (Severe, Verified 05/18/18 17:51) NUCHAL DYSTONIA PERRY Inhibitors Allergy (Intermediate, Verified 05/18/18 17:51) Cough benzyl alcohol Allergy (Unknown, Verified 05/18/18 17:51) unknown hydroxyzine Allergy (Unknown, Verified 05/18/18 17:51) UNKNOWN metformin Adverse Reaction (Intermediate, Verified 05/18/18 17:51) Diarrhea tetracycline Adverse Reaction (Intermediate, Verified 05/18/18 17:51) Gastrointestinal Upset parsley Adverse Reaction (Mild, Verified 05/20/18 14:08) Agitated Height/Weight/Isolation Height 5 ft 4 in Weight 55.3 kg Chemistry 05/20/18 05/21/18 07:11 07:09 Sodium 141 139 Potassium 4.0 3.9 Chloride 108 H 105 Carbon Dioxide 29 29 Anion Gap 4.0 5.0 BUN 11 10 Creatinine 1.14 1.17 Glucose 96 77 Microbiology 05/18/18 22:51 Urine,Clean Catch Urine Culture - Final Three types of organisms present, all low counts probable skin dmearcus. No further identifications or sensitivities to follow. Hospital Course (1) Numbness: Improving after thiamine and folate administration started this admission. Plavix added back to regimen--stopped as outpatient during the last year for significant bruising. Persistent speech deficits--uncertain if new intracranial event, this was simply added prophylaxis. Brain MRI is negative. Carotid ultrasound showed no significant stenosis. Other considerations that are less likely but are considered include paraneoplastic syndrome, monoclonal gammopathy, WM, or collagen vascular diseases. Routine cancer screening is UTD per patient, no recent constitutional symptoms such as weight loss, fevers, night sweats. ESR, CRP, quant Ig panel in am. Cont vitamin supplementation on discharge. (2) H/O mitral valve replacement with mechanical valve: Goal INR 2.5-3.5, 4.3 today-we will follow-up outpatient (3) Hypothyroidism: recent dose change last week. (4) Diabetes type 2, controlled: Diet controlled diabetes, blood sugar checks before meals at bedtime with insulin for correction factor only. No carb coverage. (5) Atrial fibrillation: Persistent, on Coumadin, rate controlled with metoprolol 25 mg p.o. every morning. (6) DVT prophylaxis: Coumadin Full code Disposition-DC today Total Time Total Time Spent Total Time Spent (In Minutes): 45 mins Total Time Includes: Examination of the Patient, Discharge Planning, Medication Reconciliation and Communication With Other Providers Discharge Plan Discharge Items Patient Disposition: Home - Self-Care Reason For Visit: STROKE LIKE SYMPTOMS Discharge Diagnosis: Stroke like symptoms Discharge Goals: Decrease discomfort and Improve function Activity: Resume your previous activity Lifting: None Bathing: No limitations Sexual Activity: When tolerated Exercise/Sports: Gradually increase as tolerated Driving/Machine Use: No limitations Weightbearing: Left weightbearing and Right weightbearing Non-emergency contact: Primary Care Provider and Neurologist Call non-emergency contact if: you have any medication questions and your symptoms worsen Follow-up/Referrals: Naomi Bowie PA-C [Physician Jewel Bearing Broacher] - 06/25/18 10:00 am John Blanco MD [Primary Care Provider] - 05/26/18 8:00 am (Call to confirm appointment time) Diet: Carb Consistent or DM2 and Heart Healthy Addtl Provider Instructions: Routine follow-up Prescriptions: New clopidogrel 75 mg Tablet 75 mg PO QAM Qty: 30 RF: 0 folic acid 1 mg Tablet 1 mg PO QAM Qty: 30 RF: 0 thiamine HCl (vitamin B1) [Vitamin B-1] 50 mg Tablet 50 mg PO QAM Qty: 30 RF: 0 Continued acetaminophen [Tylenol Extra Strength] 500 mg Tablet 500 mg PO Q6H PRN (Reason: Pain) RF: 0 levothyroxine 100 mcg tablet 100 mcg PO PM RF: 0 warfarin 5 mg Tablet 5 mg PO [id number] RF: 0 warfarin 5 mg Tablet 7.5 mg PO [id number] RF: 0 metoclopramide HCl [Reglan] 10 mg Tablet 10 mg PO AC PRN (Reason: Nausea) RF: 0 ropinirole [Requip] 4 mg Tablet 2 mg PO TID RF: 0 furosemide 40 mg tablet 40 mg PO MoWeFr@0900 RF: 0 amitriptyline 50 mg tablet 50 mg PO BID RF: 0 tramadol 50 mg Tablet 50 mg PO TID PRN (Reason: Pain) RF: 0 nitroglycerin [Nitrostat] 0.4 mg Tablet, Sublingual 0.4 mg Sublingual DIRECTED PRN (Reason: Chest Pain) RF: 0 omeprazole 20 mg Capsule,Delayed Release(Dr/Ec) 20 mg PO PM RF: 0 cholecalciferol (vitamin D3) [Vitamin D3] 1,000 unit Capsule 1,000 unit PO QAM RF: 0 rosuvastatin 10 mg Tablet 10 mg PO DAILY RF: 0 metoprolol tartrate 25 mg Tablet 25 mg PO QAM RF: 0 Visit Report Forms: Smoking Cessation Stand-Alone Forms: [facility], Work/School Release (Inpt) Discharge Orders: Discharge Order (Routine); Ordered 05/21/18 Ordered By: Long Lagunas Admission Data Admit Date/Time: 05/18/18 18:14 Attending Provider: Long [place]unas Admit Provider: Judith Villanueva Primary Care Provider: John Blanco Other Providers: Judith Villanueva ; Aditya German ; Judd Sutton Service: Telemetry
[2018-05-21] MEDS: WARFARIN SOD 7.5 MG TAB PO SCH (15:23)
== END 2018-05-21 17:37 | disposition home health service (06) | DRG 92 ==
LOC: ED 16:13 → 2S 18:14 → SUATTDRO 18:14 → 2S 19:07
DX: I48.92 Unspecified atrial flutter; Z95.2 Presence of prosthetic heart valve; Z79.01 Long term (current) use of anticoagulants; N18.3 Chronic kidney disease, stage 3 (moderate); Z88.8 Allergy status to other drugs, medicaments and biological substances; I48.91 Unspecified atrial fibrillation; Z88.1 Allergy status to other antibiotic agents; E11.22 Type 2 diabetes mellitus with diabetic chronic kidney disease; R20.0 Anesthesia of skin

== ENCOUNTER 2018-09-23 04:52 | Inpatient (IN) ==
--- NOTE | 2018-09-05 11:45 | PAT Medication Instructions ---
Medication Instructions Date of Service September 05, 2018 Home Medications Medication Instructions Recorded clopidogrel 75 mg PO QAM #30 tab 05/21/18 folic acid 1 mg PO QAM #30 tab 05/21/18 thiamine HCl (vitamin B1) [Vitamin 50 mg PO QAM #30 tab 05/21/18 B-1] cholecalciferol (vitamin D3) Vitamin D3 1,000 unit PO QAM metoprolol tartrate 25 mg PO QAM PRN nitroglycerin Nitrostat 0.4 mg SUBLINGUAL DIRECTED PRN omeprazole 20 mg PO PM rosuvastatin 10 mg PO QPM tramadol 50 mg PO TID PRN acetaminophen Tylenol Extra Strength 500 mg PO Q6H PRN amitriptyline 50 mg PO BID furosemide 40 mg PO MoWeFr@0900 levothyroxine 100 mcg PO QAM metoclopramide HCl Reglan 10 mg PO AC PRN warfarin 5 mg PO 4XWK warfarin 7.5 mg PO 3XWK clopidogrel 75 mg PO QAM folic acid 1 mg PO QAM thiamine HCl (vitamin B1) Vitamin B-1 50 mg PO QAM ropinirole 4 mg PO TID Continue as directed nitroglycerin Nitrostat 0.4 mg SUBLINGUAL DIRECTED PRN (if needed) ASK your prescriber and surgeon warfarin 5 mg PO 4XWK warfarin 7.5 mg PO 3XWK clopidogrel 75 mg PO QAM (in order for spinal anesthesia clopidogrel/plavix needs to be held 7 days prior to surgery- please check if this is okay with provider that prescribes this to you) STOP taking 24 hours before surgery ropinirole 4 mg PO TID DO NOT take the morning of surgery cholecalciferol (vitamin D3) Vitamin D3 1,000 unit PO QAM furosemide 40 mg PO MoWeFr@0900 metoclopramide HCl Reglan 10 mg PO AC PRN folic acid 1 mg PO QAM thiamine HCl (vitamin B1) Vitamin B-1 50 mg PO QAM Take morning of surgery With a small sip of water, OTHERWISE NOTHING TO EAT OR DRINK AFTER MIDNIGHT: metoprolol tartrate 25 mg PO QAM PRN (if needed) tramadol 50 mg PO TID PRN (okay to take up to 4 hours prior to surgery if needed) acetaminophen Tylenol Extra Strength 500 mg PO Q6H PRN (okay to take up to 4 hours prior to surgery if needed) amitriptyline 50 mg PO BID levothyroxine 100 mcg PO QAM Take evening before surgery omeprazole 20 mg PO PM rosuvastatin 10 mg PO QPM tramadol 50 mg PO TID PRN (if needed) acetaminophen Tylenol Extra Strength 500 mg PO Q6H PRN (if needed) amitriptyline 50 mg PO BID metoclopramide HCl Reglan 10 mg PO AC PRN (if needed) Other Notes If you have any questions please call us at [phone] or [phone] or [phone] or [phone]
--- NOTE | 2018-09-08 11:16 | Anesthesiology Consultation ---
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 05/2018 ECHO reviewed. Increased risk in setting of hx microembolization difficulties while off anticoagulation. "No absolute contraindications to surgery. Cardiac status has been clinically stable with well functioning mechanical prosthesis in the mitral valve position." Plan for lovenox bridging. - PCP: 08/29/18: "Medically she is stable for surgery." - Warfarin instructions: per surgeon/prescriber. Lovenox bridging planned per cardio note. - Plavix instructions: Per patient at PAT visit 09/08/18, she states she was advised to hold Plavix 3 days prior to surgery at last cardio office visit. Patient advised that in order for SAB, will need to hold Plavix 7 days prior to surgery. Patient voiced understanding and states that Dr. Molina does not want patient holding Plavix for more than 3 days and is aware this means procedure will need to be done under [place]. She states she will contact cardio to confirm regarding Plavix instructions/check if okay to hold 7 days prior to surgery. Surgeon made aware of the above. - Check BSG AM DOS (diet controlled diabetic) Chart Review Chart Review: Acceptable Risk for Surgery and Patient seen in Pre Admission Testing Teaching & Discussion Pre-Anesthesia Teaching/Discussion Notes: Instructed NPO after midnight before surgery,except medications with 15 cc of water. Medication instructions pr ovided according to the PAT guidelines. History Surgery Operation Date: 09/23/18 11:15 Proposed Procedures p Left Total Knee Arthroplasty - Watson Cormier DO Height/Weight Height: 5 ft 3 in Weight: 57.4 kg Allergies Allergy/AdvReac Type Severity Reaction Status Date / Time prochlorperazine Allergy Severe NUCHAL Verified 08/13/18 09:55 DYSTONIA promethazine Allergy Severe NUCHAL Verified 08/13/18 09:55 DYSTONIA PERRY Inhibitors Allergy Intermediate COUGH Verified 09/08/18 15:26 hydroxyzine Allergy Unknown DYSTONIA Verified 08/13/18 09:55 metformin AdvReac Intermediate DIARRHEA Verified 09/08/18 15:26 tetracycline AdvReac Intermediate DYSPEPSIA Verified 09/08/18 15:26 parsley AdvReac Mild AGITATION Verified 09/08/18 15:26 Medications Home Medications Medication Instructions Recorded Confirmed Last Taken cholecalciferol (vitamin D3) 1,000 unit PO QAM 12/05/17 08/13/18 05/18/18 [Vitamin D3] metoprolol tartrate 25 mg PO QAM 12/05/17 08/13/18 05/18/18 nitroglycerin [Nitrostat] 0.4 mg SUBLINGUAL DIRECTED PRN 12/05/17 08/13/18 12/15/17 omeprazole 20 mg PO PM 12/05/17 08/13/18 05/17/18 rosuvastatin 10 mg PO QPM 12/05/17 08/13/18 05/05/18 tramadol 50 mg PO TID PRN 12/05/17 08/13/18 05/17/18 21:00 acetaminophen [Tylenol Extra 500 mg PO Q6H PRN 05/18/18 08/13/18 05/17/18 20:00 Strength] 1000mg amitriptyline 50 mg PO BID 05/18/18 08/13/18 05/18/18 furosemide 40 mg PO MoWeFr@0900 05/18/18 08/13/18 05/16/18 levothyroxine 100 mcg PO QAM 05/18/18 08/13/18 05/17/18 metoclopramide HCl [Reglan] 10 mg PO AC PRN 05/18/18 08/13/18 05/16/18 warfarin 5 mg PO 4XWK 05/18/18 08/13/18 05/17/18 warfarin 7.5 mg PO 3XWK 05/18/18 08/13/18 05/16/18 clopidogrel 75 mg PO QAM #30 tab 05/21/18 08/13/18 Unknown folic acid 1 mg PO QAM #30 tab 05/21/18 08/13/18 Unknown thiamine HCl (vitamin B1) [Vitamin 50 mg PO QAM #30 tab 05/21/18 08/13/18 Unknown B-1] ropinirole 4 mg PO TID 08/13/18 08/13/18 Unknown potassium 1 tab PO DAILY 09/08/18 09/08/18 Unknown Past Medical History Medical History Anemia chronic; baseline hgb 9-10 range per chart review A-fib on warfarin Anxiety CKD (chronic kidney disease), stage III Diabetes diet controlled GERD (gastroesophageal reflux disease) controlled HTN (hypertension) History of blood transfusion autologous s/p MVR (1993) Hx of myocardial infarction 2000= no stents Hyperlipidemia Hypothyroidism Migraines 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 migraine vs. stress related) Exercise / Class Metabolic Activity III < 4 Walking/Shop/Light housework Past Family History Family History Uncle , of [place] in his 40s Coronary heart disease Past Surgical History Surgical History H/O radioactive iodine thyroid ablation H/O: hysterectomy History of colonoscopy History of tonsillectomy and adenoidectomy Hx of appendectomy Hx of cholecystectomy Hx of mitral valve replacement Hx of tubal ligation Past Anesthesia History No Hx of Anesthesia Complications Mother- "slow to wake" History of PONV No Hx of PONV and No Hx of Motion Sickness Social History Smoking Status: Never smoker Do You Dip or Chew Tobacco: No Hx Alcohol Use: Yes Alcohol type: wine alcohol intake frequency: 0-2 drinks per day (1 glass wine/daily) Hx Substance Use: No substance use type: does not use Review of Systems Reflux controlled. Patient denies chest pain, shortness of breath, cough, wheezing, palpitations. Physical Exam Vital Signs VITALS BP 121/67 P 65 TEMP 97.8 SP02 95%RA RESP 18 PHYSICAL Mildly decreased cervical extension Full TMJ range of motion. TMD 3 finger breaths Mallampati Score 2 Dentition: full dentures upper/lower Lungs: clear throughout to auscultation Cardiac: irregular rhythm. regular rate. systolic click noted. I-II/ systolic murmur Spine: normal Carotid arteries: faint bruit on left vs. radiation Extremities: no edema Small oral opening Testing Laboratory Results 09/08/18 11:37 09/08/18 11:37 PT 27.3 Seconds (9.0-12.0) H 09/08/18 11:37 INR 2.9 (0.9-1.1) H 09/08/18 11:37 APTT 44.1 Seconds (21.0-31.0) H 09/08/18 11:37 Hemoglobin A1c 5.8 % (4.5-5.6) H 09/08/18 11:37 Urine Color Yellow 09/08/18 Unknown Urine Appearance Clear (Clear) 09/08/18 Unknown Urine pH 6.0 (4.5-7.5) 09/08/18 Unknown Ur Specific [place] 1.012 (1.000-1.030) 09/08/18 Unknown Urine Protein Negative (Negative) 09/08/18 Unknown Urine Glucose (UA) Negative (Negative) 09/08/18 Unknown Urine Ketones Negative (Negative) 09/08/18 Unknown Urine Nitrite Negative (Negative) 09/08/18 Unknown Ur Leukocyte Esterase Negative (Negative) 09/08/18 Unknown Blood Type A Positive 09/08/18 11:37 Antibody Screen NEGATIVE 09/08/18 11:37 09/08/18 GFR 34.5 Electrocardiogram Date: 05/18/18 A. fib at 68bpm. LAFB. NS TWA. Chest X-Ray Date: 09/08/18 The heart is enlarged with a globular configuration. There are postsurgical changes of midline sternotomy and valvular replacement. There is mild chronic pulmonary venous hypertension. There is no focal pulmonary consolidation. There are no pleural effusions. Echocardiogram Date: 05/19/18 EF 60-65%. No RWMA. MC central tilting disc (Roe Medtronic type) mechanical prosthesis present. Prosthetic valve leaflet is freely mobile. MV prosthesis systolic gradients are borderline elevated and indeterminate for obstruction. Doppler findings do not suggest pulmonary HTN No significant MR visualized (but assessment limited due to presence of acoustic shadowing). Moderate TR. Mild to moderate AR. No significant interval change 12/06/17. Other Testing Carotid ultrasound: 05/19/18: There is no sonographic evidence of hemodynamically significant stenosis in the right or left carotid arterial system. Antegrade flow is shown in the vertebral arteries.
[2018-09-08 12:02] LABS: Basophils # (auto) 0.02 K/uL (0-0.2); Basophils % (auto) 0.4 %; Eosinophils # (auto) 0.24 K/uL (0-0.5); Eosinophils % (auto) 4.5 %; Hemoglobin 10.3 g/dL (12.0-16.0); Immature Granulocytes # (auto) 0.01 K/uL (0.00-0.02); Immature Granulocytes % (auto) 0.2 %; Lymphocytes # (auto) 0.97 K/uL (1.2-3.4); Lymphocytes % (auto) 18.3 %; Mean Corpuscular Hgb Conc 31.2 g/dL (32-36); Mean Corpuscular Volume 87.8 fL (80-100); Mean Platelet Volume 10.6 fL (7.4-10.4); Monocytes # (auto) 0.35 K/uL (0.11-0.59); Monocytes % (auto) 6.6 %; Neutrophils # (auto) 3.71 K/uL (1.4-6.5); Platelet Count 128 K/uL (130-400); RDW Coefficient of Variation 14.5 % (11.5-14.5); RDW Standard Deviation 46.6 fL (36.4-46.3); Red Blood Count 3.76 M/uL (4.2-5.4)
--- NOTE | 2018-09-08 12:05 | XRay Report ---
XR chest Pre-admission PA/Lat CLINICAL HISTORY: Preoperative chest COMPARISON STUDY: 05/06/2009 FINDINGS: The heart is enlarged with a globular configuration. There are postsurgical changes of midl ine sternotomy and valvular replacement. There is mild chronic pulmonary venous hypertension.. There is no focal pulmonary consolidation. There are no pleural effusions.[ IMPRESSION: Persistent cardiac enlargement and chronic mild pulmonary venous hypertension. No acute f indings. Electronically signed by: Frederick Diaz M.D. 09/08/2018 12:04 PM
[2018-09-08 12:08] LABS: Appearance Urine Clear (Clear); Bilirubin Urine Negative (Negative); Blood Urine Negative (Negative); Color Urine Yellow; Glucose Urine UA Negative (Negative); Ketones Urine Negative (Negative); Leukocyte Esterase Urine Negative (Negative); Nitrite Urine Negative (Negative); Protein Urine Negative (Negative); Specific Gravity Urine 1.012 (1.000-1.030); Urobilinogen Urine Negative (Negative)
[2018-09-08 12:12] LABS: INR 2.9 (0.9-1.1); Partial Thromboplastin Ratio 1.6; Partial Thromboplastin Time 44.1 Seconds (21.0-31.0); Prothrombin Time 27.3 Seconds (9.0-12.0)
[2018-09-08 13:12] LABS: Estimated Average Glucose 120 mg/dl; Hemoglobin A1C 5.8 % (4.5-5.6)
[2018-09-08 14:11] LABS: Albumin Level 3.8 gm/dl (3.4-5.0); BUN Creatinine Ratio 12.8 (10-20); Calcium 9.6 mg/dl (8.5-10.1); Creatinine Clr Calc Pharmacy 29.6 ml/min; Est GFR (Non-African American) 34.5
--- NOTE | 2018-09-22 18:32 | History & Physical Report ---
Date of Service September 22, 2018 Assessment & Plan (1) Degenerative joint disease of left knee: I have indicated the patient for left total knee replacement. The risks, benefits and complications of surgery were explained to the patient which include but not limited to infection, acute blood loss, DVT/PE, injury to nerves, vessels, bone, soft tissue, arthrofibrosis, chronic pain, failure of the prosthesis, knee dislocation, leg length discrepancy, need for additional surgery, cardiac and pulmonary events and . The patient wished to proceed with surgery and informed consent was obtained at this time. We will plan for Lovenox-->coumadin post-operatively for DVT prophylaxis. Upon discharge the patient will be discharged home with home health services. Appropriate clearances by PCP, cardio, neuro were obtained. Patient Cr evaluated further by PCP, felt at baseline based on historical lab draws, cleared for surgery. INR 1.2 morning of surgery. History of Present Illness Chief Complaint: Left knee pain/djd Primary Care Provider: John Blanco MD The patient is a 63 year old female who presents with complaints of severe left knee pain and DJD. The patient has failed outpatient conservative treatments to this point which included NSAIDS, corticosteroid injection, PT and a home exercise/walking program. The patient's pain and limited function have progressed to the point where they severely hinder their activities of daily living and they no longer tolerate exercise programs. They are requesting to proceed with total knee replacement surgery. Allergies Allergy/AdvReac Type Severity Reaction Status Date / Time prochlorperazine Allergy Severe NUCHAL Verified 09/23/18 05:33 DYSTONIA promethazine Allergy Severe NUCHAL Verified 09/23/18 05:33 DYSTONIA PERRY Inhibitors Allergy Intermediate COUGH Verified 09/23/18 05:33 hydroxyzine Allergy Unknown DYSTONIA Verified 09/23/18 05:33 lisinopril AdvReac Intermediate Cough Verified 09/23/18 05:33 metformin AdvReac Intermediate DIARRHEA Verified 09/23/18 05:33 tetracycline AdvReac Intermediate DYSPEPSIA Verified 09/23/18 05:33 parsley AdvReac Mild AGITATION Verified 09/23/18 05:33 Home Medications Home Medications Medication Instructions Recorded Confirmed Type cholecalciferol (vitamin D3) 1,000 unit PO QAM 12/05/17 09/23/18 History [Vitamin D3] metoprolol tartrate 25 mg PO QAM 12/05/17 09/23/18 History nitroglycerin [Nitrostat] 0.4 mg SUBLINGUAL DIRECTED PRN 12/05/17 09/23/18 History omeprazole 20 mg PO PM 12/05/17 09/23/18 History rosuvastatin 10 mg PO QPM 12/05/17 09/23/18 History tramadol 50 mg PO TID PRN 12/05/17 09/23/18 History acetaminophen [Tylenol Extra 500 mg PO Q6H PRN 05/18/18 09/23/18 History Strength] amitriptyline 50 mg PO BID 05/18/18 09/23/18 History furosemide 40 mg PO MoWeFr@0900 05/18/18 09/23/18 History levothyroxine 100 mcg PO QAM 05/18/18 09/23/18 History metoclopramide HCl [Reglan] 10 mg PO AC PRN 05/18/18 09/23/18 History warfarin 5 mg PO 4XWK 05/18/18 09/23/18 History warfarin 7.5 mg PO 3XWK 05/18/18 09/23/18 History clopidogrel 75 mg PO QAM #30 tab 05/21/18 09/23/18 Rx folic acid 1 mg PO QAM #30 tab 05/21/18 09/23/18 Rx thiamine HCl (vitamin B1) [Vitamin 50 mg PO QAM #30 tab 05/21/18 09/23/18 Rx B-1] ropinirole 4 mg PO TID 08/13/18 09/23/18 History potassium 1 tab PO DAILY 09/08/18 09/23/18 History enoxaparin [Lovenox] 50 mg SUBCUT Q12H 09/23/18 09/23/18 History Past Med/Surg History Medical History Anemia chronic; baseline hgb 9-10 range per chart review A-fib on warfarin Anxiety CKD (chronic kidney disease), stage III Diabetes diet controlled GERD (gastroesophageal reflux disease) controlled H/O radioactive iodine thyroid ablation HTN (hypertension) History of blood transfusion autologous s/p MVR (1993) Hx of myocardial infarction 2000= no stents Hyperlipidemia Hypothyroidism Migraines 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 migraine vs. 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 Feels Safe at Home: Yes Safety Concerns: Feels Safe At This Time Smoking Status: Never smoker Do You Dip or Chew Tobacco: No ; Second Hand Exposure: No ; Hx Alcohol Use: Yes Alcohol type: wine Hx Substance Use: No Review of Systems Review of Systems: All systems reviewed & are unremarkable except as noted in HPI & below Constitutional: as per Subjective / HPI Physical Exam Physical Exam: LLE NVSI +EHL/FHL/TA/GS SILT grossly, +2 DP pulse, compartments soft NT, limited painful ROM, 10-90 degrees flexion, + crepitus. Constitutional: WD/WN, vitals as above Eyes: PERRL, conjunctivae normal, anicteric sclerae ENMT: external ear and nose normal, oropharynx normal Neck: trachea midline, no thyromegaly Respiratory: normal respiratory effort, lungs clear to auscultation Cardiovascular: RRR, no murmur, no edema Gastrointestinal (Abdomen): normal bowel sounds, soft, nontender, no hepatosplenomegaly Musculoskeletal: no cyanosis or clubbing, extremities motor strength 5/5 Skin: no rashes, warm and dry Neurologic: patellar DTR's 2+ bilat, sensation intact Psychiatric: A+Ox3, euthymic affect Lymphatic: no cervical or axillary lymphadenopathy Results & Data Diagnostic Findings Multiple views of the knee demonstrates severe tricompartmental DJD with complete loss of the medial and narrowing patellofemoral joint space. +osteophytes, +sclerosis, +subchondral cysts.
[2018-09-23] MEDS ORDERED: ACETAMINOPHEN 500 MG TAB PO SCH (06:00)
[2018-09-23] MEDS ORDERED: LR 500ML BOLUS, THEN 15ML/HR IV SCH (06:00)
[2018-09-23] MEDS ORDERED: CeleBREX 200 MG CAP PO SCH (06:00)
[2018-09-23] MEDS ORDERED: ROPIVACAINE 0.5% HCL/PF 150 MG, BUPIVACAINE 0.5% MPF 30 ML, EPINEPHrine 30MG/30ML (OR U... INFIL SCH (06:00)
[2018-09-23] MEDS ORDERED: VANCOMYCIN HCL 1,000 MG/270 ML BAG IV SCH (06:00)
[2018-09-23] MEDS ORDERED: dexAMETHasone 4 MG TAB PO SCH (06:00)
[2018-09-23] MEDS ORDERED: METOCLOPRAMIDE HCL 10 MG TABLET PO SCH (06:00)
[2018-09-23] MEDS ORDERED: CEFAZOLIN 1000MG 1,000 MG/7.5 ML SYR IV SCH (06:00)
[2018-09-23] MEDS ORDERED: FAMOTIDINE 20 MG TAB PO SCH (06:00)
[2018-09-23] MEDS ORDERED: GABAPENTIN 300 MG CAP PO SCH (06:00)
[2018-09-23] MEDS ORDERED: BUPIVACAINE 0.5 % 5 MG/1 ML PF 10ML VIAL ONE (06:10)
[2018-09-23] MEDS ORDERED: ROPIVACAINE 0.5% 5 MG/ML 30 ML VIAL ONE (06:10)
[2018-09-23 06:13] LABS: INR 1.2 (0.9-1.1); Partial Thromboplastin Ratio 1.2
[2018-09-23] MEDS ORDERED: ePHEDrine sulfate 50 MG/ML AMP IV PRN (06:47)
[2018-09-23] MEDS ORDERED: ATROPINE SULFATE 0.1 MG/ML 10ML SYR IV PRN (06:47)
[2018-09-23] MEDS ORDERED: ONDANSETRON INJ 2 MG/ML 2 ML VIAL IV PRN ×2 (06:47→11:06)
--- NOTE | 2018-09-23 06:54 | History & Physical Bridge Note ---
Date of Service September 23, 2018 History & Physical Bridge Note I have examined the patient, reviewed the History & Physical and in the interval since the performance of the History & Physical I have noted the following changes of clinical significance: no changes noted
[2018-09-23] MEDS ORDERED: ORTHO JOINT ANESTHETIC ONE (06:58)
[2018-09-23] MEDS ORDERED: BACITRACIN INJ 50,000 UNIT VIAL ONE (06:58)
[2018-09-23] MEDS ORDERED: PROPOFOL IV EMULSION 10 MG/ML 20 ML VIAL IV ONE (07:01)
[2018-09-23] MEDS ORDERED: MIDAZOLAM HCL 1 MG/ML 2ML VIAL ONE (07:01)
[2018-09-23] MEDS ORDERED: LIDOCAINE HCL 2% 2 ML VIAL/AMP(20MG/ML) INFIL ONE (07:01)
[2018-09-23] MEDS ORDERED: fentaNYL citrate 100 MCG/2 ML VIAL ONE ×3 (07:02→09:18)
[2018-09-23] MEDS ORDERED: HYDROmorphone INJ 1 MG/ML SYRINGE IV PRN (07:22)
[2018-09-23] MEDS ORDERED: fentaNYL citrate 100 MCG/2 ML VIAL IV PRN (07:22)
--- NOTE | 2018-09-23 08:54 | Post Operative Brief Note ---
Immediate Post Op Note v1 Date of Surgery September 23, 2018 Pre & Post Diagnosis Operation Date: 09/23/18 07:15 Pre-Op Diagnosis: LEFT KNEE OSTEOARTHRITIS Post-Op Diagnosis: LEFT KNEE OSTEOARTHRITIS Procedure Operation Date: 09/23/18 07:15 Actual Procedures p Left Total Knee Arthroplasty(Left) - Watson Cormier DO Surgeon Watson Cormier DO Terminologist Aleksandr Wolfe Estimated Blood Loss 50 Findings Consistent with Post-Op Diagnosis Fluids 1 L LR Specimens proximal tibia and distal femur bone fragments Drains Hemovac Drain (10 welsh, dual lumen) Anesthesia Type General Complications none Disposition Disposition: Recovery Room Overlapping Procedure I was present for: the critical portions of procedure. I was immediately available: during the entire case. Back up surgeon: was not required during procedure.
--- NOTE | 2018-09-23 09:09 | Operative Report ---
Post Operative Report Pre & Post Diagnosis Operation Date: 09/23/18 07:15 Pre-Op Diagnosis: LEFT KNEE OSTEOARTHRITIS Post-Op Diagnosis: LEFT KNEE OSTEOARTHRITIS Procedure Operation Date: 09/23/18 07:15 Actual Procedures p Left Total Knee Arthroplasty(Left) - Watson Cormier DO Surgeon Watson Cormier DO Bunghole Borer Aleksandr Wolfe Estimated Blood Loss 50 Findings Consistent with Post-Op Diagnosis Fluids 1 L lactated Ringer Specimens Proximal tibia and distal femur bone fragments Drains Hemovac drain deep to fascia Anesthesia Type General Complications none Disposition Disposition: Recovery Room Indications The patient is a 63-year-old female presents with long history of severe left knee tricompartmental DJD and failed outpatient conservative treatments including NSAIDs, bracing, injections and home walking/exercise program. The patient's symptoms have progressed to the point where it has been difficult to perform normal activities of daily living. I have indicated the patient for a left total knee arthroplasty, the risks and benefits and complications of the procedure include but are not limited to infection bleeding damage to bone, nerves, vessels, surrounding soft tissue, blood clots, loss of function, leg length discrepancy, dislocation, failure of the components, need for additional surgery and . The patient wished to proceed with surgery at this time and informed consent was obtained. Appropriate clearances were obtained. Description of Procedure COMPONENTS USED: Torsten persona knee system: Femur size 5 narrow, Tibia size D tibial articulating surface 11 PS, Patella 32 mm Following induction of general anesthesia, a tourniquet was applied to the proximal aspect of the thigh and the patient's left leg was prepped and draped in the usual sterile manner. A timeout was performed, patient identified and site jarvis confirmed. Appropriate pre-operative IV antibiotics were given. The limb was exsanguinated with an Esmarch bandage and tourniquet was inflated to 300 mmHg. A longitudinal midline incision was made over the anterior knee. Subcutaneous tissue was sharply dissected down to fascia. Electrocautery was used for hemostasis. Next a parapatellar arthrotomy was performed. Patella was everted and the knee was flexed. A Crowley retractor was used to expose the synovium above on the anterior aspect of the femur and removed down to bone. Next, the anterior fat pad was removed to aid in visualization. The medial face of the tibia was cleared of soft tissue first with a Bovie and a pierson elevator. This tissue was retracted posteriorly using a blunt Hohmann. Next, the extra-medullary tibial cutting guide was placed to the anterior aspect of the tibia. The tibia resection level was set taking 2mm from the defective tibial condyle. Resection depth was once again confirmed with kathie wing. The medial and lateral collateral ligament was protected with two Hohmann retractors. The tibia guide was removed and proximal tibial bone fragment removed utilizing straight osteotome, electrocautery and Jana. Next, the distal femur intramedullary canal was accessed utilizing the step drill. The intramedullary distal femur cutting guide was placed into the canal and pinned into place. The distal femur was cut on the +0 5 degree setting. Next the cutting guide was removed and the femur was sized. Care was taken to ensure appropriate leather goods i assembler all rotation and 3 degree holes were drilled. A size 5 4-in-1 cutting block was placed on the distal end of the femur and secured into place with two short headed screws. Two bent Hohmann retractors were placed to protect the medial and lateral collateral ligaments. The oscillating saw was used to cut anterior, posterior, anterior chamfer and posterior chamfer. The four and one cutting block was removed and bone fragments excised. Laminar gear tooth lapping machine operator was placed laterally and the ACL and PCL were removed followed by the medial meniscus and posterior medial osteophytes. Aquamantys was utilized for any posterior medial bleeders and Orthomix injected into the posterior medial capsule. A laminar gear tooth lapping machine operator was then placed in the medial compartment and the lateral meniscus and posterior osteophytes were removed. Aquamantys was utilized for any posterior lateral bleeders and Orthomix injected into the posterior lateral capsule. Next, drop harper and spacer block were placed with the leg in flexion and extension to assess alignment and flexion/extension gaps. Next, the proximal tibia was assessed and two bent Hohmans were placed medial and lateral to aid in visualization. The appropriate tibia size and rotation was selected and a size D tibial plate was pinned into place with appropriate rotation. Preparation of the tibia was completed utilizing the matching tibial drill and broach. I then turned my attention back to the distal femur in a trial femoral component was impacted into place. Appropriate femoral width was assessed and selected. Next the femur PS box cut guide was placed and cut made with the reciprocal saw and the PS box provisional placed. A trial size 10 PS tibia articular tray was placed and varus-valgus balance assessed in 0 degrees of extension and 30, 60 and 90 degrees of flexion. A final tibial articular surface size 11 PS was chosen. Assess was gained to the patella and caliper utilized to measure width. The patella reamer was utilized and remaining bone removed with oscillating saw. A size 32 patella button was selected and the patella pegs drilled. Trial patella button was placed and tracking was assessed. The knee was found to be well balanced, well aligned with excellent patella tracking. The trials were removed and final components were obtained and assembled. The knee was irrigated copiously with sterile saline solution mixed with bacitracin. Access to the proximal tibia was once again obtained utilizing to the Hohmans and the proximal tibia and distal femur were dried with lap sponges. The final components were cemented into place and all excess cement was removed. A trial tibial articular surface was placed while cemented hardened. Knee stability was once again assessed and the final component inserted. A Betadine soak was performed. After 3 minutes, the hip was once more irrigated with copious sterile saline solution with bacitracin. The knee was injected with the remaining Orthomix which includes a combination of Ropivicaine 0.5% 150mg, Bupivicaine 0.5%/Epinephrine 1:200,000 30ml, Toradol 30mg, Dexamethasone 4mg, Ketamine 10mg, Clonidine 100mcg and NSS 30ml solution. Hemovac drain placed deep to fascia. The capsulotomy was closed with #1 Vicryl followed by subc utaneous closure with 2-0 Vicryl suture and a 3-0 V-lock suture. Skin closure was performed using Prineo dressing followed by Juan, 4 x 4s and teagan wrap. Tourniquet was deflated at 93 minutes. The patient tolerated the procedure well and was taken to the PACU in stable condition. Due to the complex nature of the procedure, the entire surgery was performed with the operational assistance of Aleksandr Wolfe PA-C. The bricklayer's assistant, under direct supervision, was involved in the actual performance of all aspects of the surgical procedure including patient positioning, hemostasis, tissue retraction, instrument management and wound closure. I attest to the content of the Intraoperative Record and any orders documented therein. Any exceptions are noted below.
[2018-09-23] MEDS ORDERED: ONDANSETRON INJ 2 MG/ML 2 ML VIAL ONE (09:18)
[2018-09-23] MEDS ORDERED: ROCURONIUM BROMIDE 10 MG/ML 5 ML VIAL ONE (09:18)
[2018-09-23] MEDS ORDERED: NEOSTIGMINE METHYLSULFATE 5 MG/5 ML SYR ONE (09:18)
[2018-09-23] MEDS ORDERED: GLYCOPYRROLATE 0.2 MG/ML VIAL ONE (09:18)
--- NOTE | 2018-09-23 09:57 | XRay Report ---
XR knee LT 2V routine CLINICAL HISTORY: 63 years-old Female presenting with Surgical Post Op. TECHNIQUE: Frontal and lateral views of the left knee were obtained. COMPARISON: 01/16/2013. FINDINGS: There has been interval total left knee arthroplasty with patellar resurfacing. A surgical drain is i n place. Expected intertubercular and soft tissue emphysema. No periprosthetic fracture or significan t periprosthetic lucency. No malalignment. IMPRESSION: Expected postsurgical appearance status post total left knee arthroplasty with patellar resurfacing. Electronically signed by: Kristian Weir M.D. 09/23/2018 9:56 AM
[2018-09-23] MEDS ORDERED: NALOXONE HCL 0.4 MG/1 ML VIAL/CARP IV PRN (11:06)
[2018-09-23] MEDS ORDERED: NON-FORMULARY MEDICATION (Potassium 1 TAB) PO SCH (11:06)
[2018-09-23] MEDS ORDERED: BISACODYL 10 MG SUPP PR PRN (11:06)
[2018-09-23] MEDS: THIAMINE HCL 50 MG TABLET PO SCH ×2 (12:43→13:15)
[2018-09-23] MEDS: AMITRIPTYLINE HCL 50 MG TAB PO SCH ×2 (12:43→13:15)
[2018-09-23] MEDS: LEVOTHYROXINE SODIUM 100 MCG TABLET PO SCH ×2 (12:43→13:15)
[2018-09-23] MEDS: FOLIC ACID 1 MG TAB PO SCH ×2 (12:43→13:15)
[2018-09-23] MEDS: METOPROLOL TARTRATE 25 MG TAB PO SCH ×2 (12:43→13:15)
[2018-09-23] MEDS: ACETAMINOPHEN 500 MG TAB PO SCH ×2 (12:44→21:22)
[2018-09-23] MEDS: SODIUM CHLORIDE 0.9% 1000ML 1,000 ML IV SCH ×2 (12:44→23:48)
--- NOTE | 2018-09-23 12:56 | Anesthesiology Progress Note ---
Date of Service September 23, 2018 Anesthesia Post Procedure Vital Signs Vital Signs: Temp Pulse Resp BP Pulse Ox 09/23/18 11:45 36.5 C 84 16 112/68 94 09/23/18 11:14 36.8 C 91 H 18 122/75 92 09/23/18 10:45 36.8 C 83 18 117/56 L 95 09/23/18 10:35 36.5 C 83 20 128/74 99 09/23/18 10:25 36.5 C 80 20 139/75 94 09/23/18 10:15 36.5 C 80 20 130/75 100 09/23/18 10:05 82 15 135/73 100 09/23/18 09:55 77 16 147/83 H 100 09/23/18 09:45 75 16 137/74 100 09/23/18 09:39 36.4 C L 84 16 141/81 H 100 09/23/18 05:56 36.8 C 65 20 152/86 H 100 Pain Intensity Left Knee: Pain Intensity: 3 Transfer of Care Handoff Completed per policy Notes Mental Status: alert / awake / arousable and participated in evaluation Patient Amnestic to Procedure: Yes Nausea / Vomiting: adequately controlled Pain: adequately controlled Airway Patency, RR, SpO2: stable & adequate BP & HR: stable & adequate Hydration State: stable & adequate Anesthetic Complications: no major complications apparent and Pt Satisfied with anesthetic care
--- NOTE | 2018-09-23 13:35 | Hospitalist Consultation ---
Date of Consultation September 23, 2018 Assessment & Plan (1) Degenerative joint disease of left knee: Underwent left TKR today - post-operative management per primary service - Pt has been on Lovenox due to chronic anticoagulation - will need to be bridged as Coumadin is resumed. Outpatient Coumadin dosing is 5 mg //, 7.5 mg ///Sat per anticoagulation clinic. (2) CKD (chronic kidney disease), stage III: Creatinine appears to be at baseline on pre-op labs per PCP notes - will monitor while admitted. Pt currently receiving IV fluids but since tolerating oral intake would consider discontinuing (3) Diabetes: Pt reports this has been well-controlled with dietary modification since she lost a significant amount of weight - Will monitor BSG and use insulin sliding scale if needed - pt states that she will likely refuse any insulin. She is aware of the risks of uncontrolled hyperglycemia. (4) GERD (gastroesophageal reflux disease): Currently asymptomatic on omeprazole 20 mg daily outpatient - will use pantoprazole while admitted (5) HTN (hypertension): - Continue Lopressor - currently BP is well-controlled. Will continue to monitor (6) Hypothyroidism: - Continue outpatient levothyroxine 100 mcg daily (7) Hyperlipidemia: - Continue rosuvastatin 10 mg daily (8) A-fib: Pt reports this is a chronic issues since 1978 - asymptomatic and rate- controlled - On chronic anticoagulation due to history of MVR - Monitoring on telemetry (9) H/O mitral valve replacement with mechanical valve: Lovenox to Coumadin bridge - pt's goal INR is 3.0-3.5 per anticoagulation clinic notes (10) Coronary artery disease: - Continue outpatient regimen including Plavix (pt reports that she is unable to tolerate aspirin therapy due to history of abnormal bleeding when she was previously taking) Pt seen and reviewed with collaborating physician, Dr. Garza. Plan of care discussed and as outlined above. Pt to be followed starting in the AM by Dr. German. A member of the [facility] team is available 10/09 via pager at [phone] for questions or concerns. Thank you for this consultation. We will continue to follow with you. Ki Macias PA-C Supervising Physician Co-Signing Physician Notes Patient is a 63-year-old female with history of mitral valve, chronic atrial fibrillation diabetes and other medical problems was seen and examined postop after having left total knee arthroplasty by . Patient is doing well postop. Denies any chest pain, shortness of breath, dizziness, nausea, abdominal pain. Leg pain at surgical site is controlled. On exam patient is moderately built and nourished, normocephalic atraumatic, no apparent distress, lungs--decreased breath sounds, basal crackles, S1-S2,+ metallic click, abdomen soft nontender, left knee surgical site in dressing, grossly no focal neurolog ical deficits. Postop medical management. Currently on Lovenox bridge, Coumadin for anticoagulation. Monitor INR. Adjust Coumadin dose accordingly. Monitor for postop anemia. Pain control, activity, wound care as per primary team. Monitor blood glucose levels, insulin therapy as needed. I personally reviewed the record. Patient is interviewed and examined at bedside. Patient's care is coordinated with Ankita Sandhu PA-C. Please refer to the documentation above for details of patient's presentation and for discussion of other issues. History of Present Illness Reason for Consultation: Post-op Medical Management Attending Physician: Watson Cormier DO History of Present Illness This is a 63 y/o female with a PMH of rheumatic heart disease s/p mechanical MVR, chronic atrial fibrillation, CAD, DM2, hypothyroidism, GERD, hyperlipidemia, CKD, and prior TIA who underwent left TKR earlier today. We have been consulted to assist with post-operative medical management. Pt's outpatient records including pre-op evaluations by PCP, cardiology and neurology were reviewed. Currently pt is seen sitting up in bed eating lunch. She reports that she is feeling well and has no complaints. She underwent a nerve block prior to surgery and is currently pain-free in her operative site. She did have worsening of her chronic knee pain just prior to surgery with pain and stiffness in left > right knee with prolonged periods of sitting. She has noticed progressive LE edema (left > right) over the past few weeks, which is what she attributes her recent 7 lb weight gain to. At present, she denies chest pain, palpitations, cough, shortness of breath, nausea, vomiting, diarrhea. Last bowel movement was yesterday - baseline is every other day. Appetite is good. Has not urinated yet post-operatively. Allergies Allergy/AdvReac Type Severity Reaction Status Date / Time prochlorperazine Allergy Severe NUCHAL Verified 09/23/18 05:33 DYSTONIA promethazine Allergy Severe NUCHAL Verified 09/23/18 05:33 DYSTONIA PERRY Inhibitors Allergy Intermediate COUGH Verified 09/23/18 05:33 hydroxyzine Allergy Unknown DYSTONIA Verified 09/23/18 05:33 lisinopril AdvReac Intermediate Cough Verified 09/23/18 05:33 metformin AdvReac Intermediate DIARRHEA Verified 09/23/18 05:33 tetracycline AdvReac Intermediate DYSPEPSIA Verified 09/23/18 05:33 parsley AdvReac Mild AGITATION Verified 09/23/18 05:33 Home Medications Home Medications Medication Instructions Recorded Confirmed Type cholecalciferol (vitamin D3) 1,000 unit PO QAM 12/05/17 09/23/18 History [Vitamin D3] metoprolol tartrate 25 mg PO QAM 12/05/17 09/23/18 History nitroglycerin [Nitrostat] 0.4 mg SUBLINGUAL DIRECTED PRN 12/05/17 09/23/18 History omeprazole 20 mg PO PM 12/05/17 09/23/18 History rosuvastatin 10 mg PO QPM 12/05/17 09/23/18 History tramadol 50 mg PO TID PRN 12/05/17 09/23/18 History acetaminophen [Tylenol Extra 500 mg PO Q6H PRN 05/18/18 09/23/18 History Strength] amitriptyline 50 mg PO BID 05/18/18 09/23/18 History furosemide 40 mg PO MoWeFr@0900 05/18/18 09/23/18 History levothyroxine 100 mcg PO QAM 05/18/18 09/23/18 History metoclopramide HCl [Reglan] 10 mg PO AC PRN 05/18/18 09/23/18 History warfarin 5 mg PO 3XWK 05/18/18 09/23/18 History warfarin 7.5 mg PO 4XWK 05/18/18 09/23/18 History clopidogrel 75 mg PO QAM #30 tab 05/21/18 09/23/18 Rx folic acid 1 mg PO QAM #30 tab 05/21/18 09/23/18 Rx thiamine HCl (vitamin B1) [Vitamin 50 mg PO QAM #30 tab 04/03/19 08/06/19 Rx B-1] ropinirole 4 mg PO TID 08/13/18 09/23/18 History potassium 1 tab PO DAILY 09/08/18 09/23/18 History enoxaparin [Lovenox] 50 mg SUBCUT Q12H 09/23/18 09/23/18 History Patient History Medical History Anemia chronic; baseline hgb 9-10 range per chart review GERD (gastroesophageal reflux disease) controlled History of rheumatic heart disease Hx of myocardial infarction 2000= no stents Hyperlipidemia Hypothyroidism Osteoarthritis A-fib on warfarin Anxiety CKD (chronic kidney disease), stage III Diabetes diet controlled H/O radioactive iodine thyroid ablation HTN (hypertension) History of blood transfusion autologous s/p MVR (1993) Migraines 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 migraine vs. stress related) Surgical History History of colonoscopy History of tonsillectomy and adenoidectomy Hx of appendectomy Hx of cholecystectomy Hx of mitral valve replacement Hx of tubal ligation H/O: hysterectomy Family History Uncle , of [place] in his 40s Coronary heart disease Social History Preferred Language: [place] Communication Ability: Effective Field Return Repairer Required: No Beliefs That Will Affect Care: Rastafarian Current Living Situation: Family Current Living Situation Comment: Mother lives with her. Other Information That Helps Us Care for You: No Feels Safe at Home: Yes Safety Concerns: Feels Safe At This Time Smoking Status: Never smoker Do You Dip or Chew Tobacco: No ; Second Hand Exposure: No ; Tobacco Cessation Education Requested by Patient: No Hx Alcohol Use: No Hx Substance Use: No Review of Systems Review of Systems: All systems reviewed & are unremarkable except as noted in HPI & below Constitutional: + weight gain (7 lb from baseline in the past few weeks - pt attributes to fluid retention); no fever, no chills and no sweats Eyes: no diplopia, not seeing flashes and no worsening vision Ear, Nose, Mouth, Throat: + dysphagia (occasional solid food dysphagia - unchanged from baseline); no dizziness, no nasal congestion, no nasal discharge and no sore throat Respiratory: no cough, no chest congestion, no dyspnea, no hemoptysis, no pain on inspiration and no wheezing Cardiovascular: + edema; no chest pain, no palpitations, no lightheadedness, no syncope and no calf pain Gastrointestinal: no abdominal pain, no nausea, no vomiting, no change in bowel habits, no diarrhea/loose stools and no blood in stools Genitourinary: no dysuria, no urinary frequency, no urinary urgency and no hematuria Musculoskeletal: + joint pain (chronic left > right knee pain - none at present); no back pain and no neck pain Integumentary: no rash and no yellowing of the skin Neurologic: no tremor(s), no dizziness, no syncope and no headache(s) Psychiatric: no depression and no anxiety Physical Exam Constitutional: WD/WN, vitals as above Eyes: + anicteric sclerae; no conjunctival abnormality ENMT: external ear and nose normal, oropharynx normal Neck: trachea midline Respiratory: no respiratory distress and no labored breathing Auscultation: lungs clear to auscultation bilaterally; no rales, no rhonchi and no wheezes Cardiovascular: Rate/Rhythm: + irregularly irregular Heart Sounds: + click (+crisp valve click) Vessels: dorsalis pedis pulses present Extremities: normal capillary refill and + pedal edema (left > right) Gastrointestinal (Abdomen): Inspection/Auscultation: normal bowel sounds; abdomen not distended Percussion/Palpation: abdomen soft; abdomen nontender Musculoskeletal: Head/Neck/Chest: normocephalic, head atraumatic and neck supple Extremities: no cyanosis and no clubbing Skin: no rashes, warm and dry no jaundice Neurologic: sensation to light touch intact bilateral LE Able to move toes bilaterally Psychiatric: A+Ox3, euthymic affect Results & Data Vital Signs (Past 12 Hours) Vital Signs Temp Pulse Resp BP Pulse Ox 09/23/18 12:45 36.6 C 95 H 16 125/71 94 09/23/18 11:45 36.5 C 84 16 112/68 94 09/23/18 11:14 36.8 C 91 H 18 122/75 92 09/23/18 10:45 36.8 C 83 18 117/56 L 95 09/23/18 10:35 36.5 C 83 20 128/74 99 09/23/18 10:25 36.5 C 80 20 139/75 94 09/23/18 10:15 36.5 C 80 20 130/75 100 09/23/18 10:05 82 15 135/73 100 09/23/18 09:55 77 16 147/83 H 100 09/23/18 09:45 75 16 137/74 100 09/23/18 09:39 36.4 C L 84 16 141/81 H 100 09/23/18 05:56 36.8 C 65 20 152/86 H 100 (1) Diabetes Diabetes mellitus complication status: without complication Diabetes mellitus termite exterminator helper insulin use: without termite exterminator helper use Diabetes mellitus type: type 2 Qualified Code(s): E11.9 - Type 2 diabetes mellitus without complications (2) Coronary artery disease Associated angina: without angina Coronary Disease-Associated Artery/Lesion type: [place] artery [place] vs. transplanted heart: [place] heart Qualified Code(s): I25.10 - Atherosclerotic heart disease of [place] coronary artery without angina pectoris (3) A-fib Atrial fibrillation type: chronic Qualified Code(s): I48.2 - Chronic atrial fibrillation (4) Hyperlipidemia Hyperlipidemia type: unspecified Qualified Code(s): E78.5 - Hyperlipidemia, unspecified (5) Hypothyroidism Hypothyroidism type: postablative Qualified Code(s): E89.0 - Postprocedural hypothyroidism (6) Degenerative joint disease of left knee Osteoarthritis type: unspecified Qualified Code(s): M17.12 - Unilateral primary osteoarthritis, left knee (7) GERD (gastroesophageal reflux disease) Esophagitis presence: without esophagitis Qualified Code(s): K21.9 - Gastro- esophageal reflux disease without esophagitis (8) HTN (hypertension) Hypertension type: unspecified Qualified Code(s): I10 - Essential (primary) hypertension
[2018-09-23] MEDS ORDERED: ROPINIROLE HCL 1 MG TABLET PO SCH (14:00)
[2018-09-23] MEDS: ROPINIROLE HCL 1 MG TABLET PO SCH ×2 (14:04→21:24)
[2018-09-23] MEDS ORDERED: GLUCAGON FOR INJ 1 MG VIAL SQ PRN (14:22)
[2018-09-23] MEDS ORDERED: CARBOHYDRATES FOR HYPOGLYCEMIA PO PRN (14:22)
[2018-09-23] MEDS ORDERED: DEXTROSE 50% 50 ML SYRINGE IV PRN (14:22)
[2018-09-23] MEDS ORDERED: GLUCOSE 10 TABS/TUBE PO PRN (14:22)
[2018-09-23] MEDS ORDERED: GLUCOSE 40% GEL 15 GM TUBE PO PRN (14:22)
[2018-09-23] MEDS: CEFAZOLIN 1000MG 1,000 MG/7.5 ML SYR IV SCH ×2 (16:17→23:41)
[2018-09-23] MEDS: WARFARIN SOD 5 MG TAB PO SCH (16:18)
[2018-09-23] MEDS ORDERED: INSULIN ASPART 100 UNITS/ML 3 ML PEN SC SCH (16:30)
[2018-09-23] MEDS: AMITRIPTYLINE HCL 25 MG TAB PO SCH ×2 (17:38→21:23)
[2018-09-23] MEDS: OXYCODONE HCL IR 5 MG TAB (IMMEDIATE RELEASE) PO PRN ×2 (17:42→21:46)
--- NOTE | 2018-09-23 18:11 | Orthopedic Progress Note ---
Date of Service September 23, 2018 Assessment & Plan (1) Degenerative joint disease of left knee: s/p L TKA -ancef x 24 -DVT ppx: SCDs, TEDs, restart patients home DVT meds, lovenox--> coumadin, follows coumadin clinic, plavix -WBAT LLE -PT/OT -monitor drain output -XR L knee demonstrates a well aligned well fixed prosthesis without fracture/dislocation -am labs -Medical hospitalist consult -DC planning - home with HH Subjective Post Operative Progress Note Patient seen sitting up in bed, comfortable, denies complaints, pain well controlled, no acute issues. Review of Systems Review of Systems: All systems reviewed & are unremarkable except as noted in HPI & below Constitutional: as per Subjective / HPI Physical Exam Physical Exam: LLE NVSI +EHL/FHL/TA/GS SILT grossly, +2 DP pulse, compartments soft NT, dressing cdi. Constitutional: WD/WN, vitals as above Results & Data Vital Signs (Past 12 Hours) Vital Signs Temp Pulse Resp BP Pulse Ox 09/23/18 16:52 36.7 C 82 18 128/68 96 09/23/18 12:45 36.6 C 95 H 16 125/71 94 09/23/18 11:45 36.5 C 84 16 112/68 94 09/23/18 11:14 36.8 C 91 H 18 122/75 92 09/23/18 10:45 36.8 C 83 18 117/56 L 95 09/23/18 10:35 36.5 C 83 20 128/74 99 09/23/18 10:25 36.5 C 80 20 139/75 94 09/23/18 10:15 36.5 C 80 20 130/75 100 09/23/18 10:05 82 15 135/73 100 09/23/18 09:55 77 16 147/83 H 100 09/23/18 09:45 75 16 137/74 100 09/23/18 09:39 36.4 C L 84 16 141/81 H 100 (1) Degenerative joint disease of left knee Osteoarthritis type: unspecified Qualified Code(s): M17.12 - Unilateral primary osteoarthritis, left knee
[2018-09-23] MEDS ORDERED: INSULIN GLARGINE SOLOSTAR 100 UNITS/ML 3 ML PEN SQ STA (20:41)
[2018-09-23] MEDS: INSULIN ASPART 100 UNITS/ML 3 ML PEN SC SCH (21:12)
[2018-09-23] MEDS: SENNA 8.6 MG TAB PO SCH (21:21)
[2018-09-23] MEDS: DOCUSATE SODIUM 100 MG CAP PO SCH (21:21)
[2018-09-23] MEDS: PANTOprazole 40 MG TAB PO SCH (21:24)
[2018-09-23] MEDS: ROSUVASTATIN CALCIUM 10 MG TAB PO SCH (21:25)
[2018-09-24] MEDS: OXYCODONE HCL IR 5 MG TAB (IMMEDIATE RELEASE) PO PRN ×2 (03:58→16:06)
[2018-09-24] MEDS: ACETAMINOPHEN 500 MG TAB PO SCH ×3 (05:47→21:50)
[2018-09-24] MEDS: LEVOTHYROXINE SODIUM 100 MCG TABLET PO SCH (05:47)
[2018-09-24 06:06] LABS: Hematocrit (blood only) 22.2 % (37-47); Hemoglobin 7.3 g/dL (12.0-16.0); Mean Corpuscular Hgb Conc 32.9 g/dL (32-36); Mean Platelet Volume 10.5 fL (7.4-10.4); Platelet Count 100 K/uL (130-400); RDW Coefficient of Variation 14.5 % (11.5-14.5); Red Blood Count 2.58 M/uL (4.2-5.4); White Blood Count 10.05 K/uL (4.8-10.8)
[2018-09-24 06:14] LABS: INR 1.3 (0.9-1.1)
[2018-09-24 06:45] LABS: BUN Creatinine Ratio 13.6 (10-20); Calcium 8.5 mg/dl (8.5-10.1); Creatinine Clr Calc Pharmacy 31.1 ml/min; Est GFR (African American) 42.3; Est GFR (Non-African American) 36.5; Potassium 3.8 mmol/L (3.5-5.1)
[2018-09-24] MEDS ORDERED: SODIUM CHLORIDE 0.9% 250 ML IV PRN (08:11)
[2018-09-24] MEDS: HYDROmorphone INJ 0.5 MG/0.5 ML SYR IV PRN ×3 (08:18→20:22)
[2018-09-24] MEDS: THIAMINE HCL 50 MG TABLET PO SCH (08:20)
[2018-09-24] MEDS: CLOPIDOGREL BISULFATE 75 MG TAB PO SCH (08:21)
[2018-09-24] MEDS: METOPROLOL TARTRATE 25 MG TAB PO SCH (08:21)
[2018-09-24] MEDS: MULTIVITAMIN TAB PO SCH ×2 (08:21→08:32)
[2018-09-24] MEDS: FOLIC ACID 1 MG TAB PO SCH (08:21)
[2018-09-24] MEDS: ROPINIROLE HCL 1 MG TABLET PO SCH ×3 (08:22→20:29)
[2018-09-24] MEDS: AMITRIPTYLINE HCL 25 MG TAB PO SCH ×4 (08:22→20:28)
[2018-09-24] MEDS: POTASSIUM CHLORIDE 10 MEQ TABCR PO SCH (08:23)
[2018-09-24] MEDS: FUROSEMIDE 40 MG TAB PO SCH (08:23)
[2018-09-24] MEDS: DOCUSATE SODIUM 100 MG CAP PO SCH ×2 (08:23→20:28)
[2018-09-24] MEDS: ENOXAPARIN INJ 60 MG/0.6 ML SYR SQ SCH ×2 (08:24→20:30)
[2018-09-24] MEDS: INSULIN ASPART 100 UNITS/ML 3 ML PEN SC SCH ×4 (08:25→20:30)
--- NOTE | 2018-09-24 10:17 | Anesthesiology Progress Note ---
Date of Service September 24, 2018 Anesthesia Post Procedure Vital Signs Vital Signs: Temp Pulse Pulse Resp BP Pulse Ox 09/24/18 07:10 92 H 09/24/18 06:58 36.9 C 93 H 18 111/61 93 09/24/18 04:00 36.5 C 93 H 16 98/55 L 94 09/24/18 00:59 95 H 09/23/18 22:52 36.8 C 86 18 109/57 L 94 09/23/18 19:04 36.9 C 19 124/67 96 09/23/18 19:00 93 H 09/23/18 16:52 36.7 C 82 18 128/68 96 09/23/18 12:45 36.6 C 95 H 16 125/71 94 09/23/18 11:45 36.5 C 84 16 112/68 94 09/23/18 11:14 36.8 C 91 H 18 122/75 92 09/23/18 10:45 36.8 C 83 18 117/56 L 95 09/23/18 10:35 36.5 C 83 20 128/74 99 09/23/18 10:25 36.5 C 80 20 139/75 94 Pain Intensity Left Knee: Pain Intensity: 3 Notes Mental Status: alert / awake / arousable and participated in evaluation Nausea / Vomiting: adequately controlled Pain: adequately controlled Airway Patency, RR, SpO2: stable & adequate BP & HR: stable & adequate Hydration State: stable & adequate Neuraxial Anesthesia: sensory block resolved
--- NOTE | 2018-09-24 11:15 | Hospitalist Progress Note ---
Date of Service September 24, 2018 Assessment & Plan (1) Degenerative joint disease of left knee: Status post left TKR POD #1- Orthopedics following, appreciate input Patient is on chronic anticoagulation secondary to mechanical mitral fall On Lovenox bridge/continue- Outpatient Coumadin dosing is 5 mg //, 7.5 mg ///Sat per anticoagulation clinic. Follow daily PT/INR Given mechanical valve replacement goal INR will be higher more than 3 Will need Lovenox bridge therapy to INR at goal (2) CKD (chronic kidney disease), stage III: Creatinine at approximate baseline, continue to monitor (3) Diabetes: Pt reports this has been well-controlled with dietary modification since she lost a significant amount of weight -Continue monitor BSG and use insulin sliding scale if needed - pt states that s he will likely refuse any insulin. She is aware of the risks of uncontrolled hyperglycemia. (4) GERD (gastroesophageal reflux disease): Currently asymptomatic on omeprazole 20 mg daily outpatient - will use pantoprazole(formulary at [facility]) while admitted (5) HTN (hypertension): - Continue Lopressor - currently BP is well-controlled. Will continue to monitor (6) Hypothyroidism: - Continue outpatient levothyroxine 100 mcg daily (7) Hyperlipidemia: - Continue rosuvastatin 10 mg daily (8) A-fib: Episode of rapid A. fib RVR, possible secondary to acute blood loss anemia postoperative Acute hemoglobin dropped to 7.3 Ordered for 2 units of PRBC transfusion Monitor vitals, and H&H posttransfusion History of chronic A. fib since 1978 -usually asymptomatic and rate-controlled - On chronic anticoagulation due to history of MVR - Monitor on telemetry (9) H/O mitral valve replacement with mechanical valve: Lovenox to Coumadin bridge - pt's goal INR is 3.0-3.5 per anticoagulation clinic notes (10) Coronary artery disease: - Continue outpatient regimen including Plavix (pt reports that she is unable to tolerate aspirin therapy due to history of abnormal bleeding when she was previously taking) (11) Acute blood loss as cause of postoperative anemia: Patient's post-op hgb decreased from 10.3 to 7.3g/dL. Patient had estimated blood loss of 100ml and IV hydration of 1000ml.(Blood loss more than usual: As patient remains on chronic anticoagulation for mechanical mitral valve/chronic A. fib) Orthopedics, no concern for hematoma postoperatively at left knee joint TKA Patient is typed and screened for 2 units PRBCs. To transfuse 2 units of PRBC today, goal hemoglobin above 10 (12) Mechanical heart valve present: This post mitral valve repair in 1993 at [facility] been Coumadin with Lovenox bridge-till INR more than 3 (13) Anemia: Chronic, baseline hemoglobin approximately 10 Developed acute blood loss anemia postop Getting 2 units of PRBC transfusion Monitor H&H Code status: Full code DVT prophylaxis: Continue Coumadin and Lovenox bridge Disposition: PT OT as per orthopedics Will follow with primary team (orthopedics) for safe discharge planning Subjective Patient had episode of rapid A. fib RVR with heart rate maximum 153 around 8 AM this morning Right around the time when patient was getting up, walking to bathroom She reported she did not had any palpitation chest heaviness or dizzy spell On monitor patient remains in A. fib rate controlled Labs reviewed, patient had acute blood loss anemia hemoglobin dropped from 10.37.3 today Possible causing reactive tachyarrhythmia No fever or chills, left knee postop pain well controlled Review of Systems Review of Systems: All systems reviewed & are unremarkable except as noted in HPI & below Physical Exam Constitutional: WD/WN, vitals as above no acute distress Eyes: PERRL, conjunctivae normal, anicteric sclerae ENMT: external ear and nose normal, oropharynx normal Neck: trachea midline, no thyromegaly Respiratory: normal respiratory effort, lungs clear to auscultation Cardiovascular: Rate/Rhythm: + abnormal rhythm Heart Sounds: + click (Metallic valve click noted) Irregular, metallic valve click noted Gastrointestinal (Abdomen): normal bowel sounds, soft, nontender, no hepa tosplenomegaly Musculoskeletal: Status post left knee joint surgery, drain present Moderate soreness from postop No increased swelling or erythema, bandage present Skin: no rashes, warm and dry Neurologic: PERRL, EOMI, accommodation nl, no face palsy, no dysarthria Psychiatric: A+Ox3, euthymic affect Results & Data Vital Signs (Past 12 Hours) Vital Signs Temp Pulse Pulse Resp BP BP Pulse Ox 09/24/18 10:20 37.4 C 103 H 18 131/63 09/24/18 07:10 92 H 09/24/18 06:58 36.9 C 93 H 18 111/61 93 09/24/18 04:00 36.5 C 93 H 16 98/55 L 94 09/24/18 00:59 95 H (1) Diabetes Diabetes mellitus complication status: without complication Diabetes mellitus alf insulin use: without alf use Diabetes mellitus type: type 2 Qualified Code(s): E11.9 - Type 2 diabetes mellitus without complications (2) Coronary artery disease Associated angina: without angina Coronary Disease-Associated Artery/Lesion type: [place] artery [place] vs. transplanted heart: [place] heart Qualified Code(s): I25.10 - Atherosclerotic heart disease of [place] coronary artery without angina pectoris (3) A-fib Atrial fibrillation type: chronic Qualified Code(s): I48.2 - Chronic atrial fibrillation (4) Hyperlipidemia Hyperlipidemia type: unspecified Qualified Code(s): E78.5 - Hyperlipidemia, unspecified (5) Hypothyroidism Hypothyroidism type: postablative Qualified Code(s): E89.0 - Postprocedural hypothyroidism (6) Degenerative joint disease of left knee Osteoarthritis type: unspecified Qualified Code(s): M17.12 - Unilateral primary osteoarthritis, left knee (7) GERD (gastroesophageal reflux disease) Esophagitis presence: without esophagitis Qualified Code(s): K21.9 - Gastro- esophageal reflux disease without esophagitis (8) HTN (hypertension) Hypertension type: unspecified Qualified Code(s): I10 - Essential (primary) hypertension
--- NOTE | 2018-09-24 13:47 | Orthopedic Progress Note ---
Date of Service September 24, 2018 Assessment & Plan (1) Degenerative joint disease of left knee: s/p L TKA POD#1 -ancef x 24 -DVT ppx: SCDs, TEDs, restart patients home DVT meds, lovenox--> coumadin, follows coumadin clinic, plavix -WBAT LLE -PT/OT -monitor drain output 50/564 -XR L knee demonstrates a well aligned well fixed prosthesis without fracture/dislocation -am labs hgb 7.3, acute post operative anemia secondary to richar-operative blood loss and dilusional effect. 2 units PRBC being tranfused today. -Medical hospitalist consult recs appreciated -DC planning - home with HH Subjective Post Operative Progress Note Patient seen in a.m. sitting up in bed, comfortable, denies complaints, pain well controlled, no acute issues. Hgb 7.3 this morning, patient denies SOB/CP or feeling light headed. Review of Systems Review of Systems: All systems reviewed & are unremarkable except as noted in HPI & below Constitutional: as per Subjective / HPI Physical Exam Physical Exam: LLE NVSI +EHL/FHL/TA/GS SILT grossly, +2 DP pulse, compartments soft NT, dressing cdi. Hmv drain intact. Constitutional: WD/WN, vitals as above Results & Data Vital Signs (Past 12 Hours) Vital Signs Temp Pulse Pulse Resp BP BP Pulse Ox 09/24/18 13:42 36.9 C 92 H 18 112/68 94 09/24/18 12:30 37.4 C 92 H 16 99/56 L 96 09/24/18 11:30 37.4 C 90 20 112/61 94 09/24/18 11:00 37.3 C 87 16 131/62 95 09/24/18 10:45 37.5 C 106 H 18 147/75 H 93 09/24/18 10:30 37.4 C 103 H 18 131/63 09/24/18 10:20 37.4 C 103 H 18 131/63 09/24/18 07:10 92 H 09/24/18 06:58 36.9 C 93 H 18 111/61 93 09/24/18 04:00 36.5 C 93 H 16 98/55 L 94 (1) Degenerative joint disease of left knee Osteoarthritis type: unspecified Qualified Code(s): M17.12 - Unilateral primary osteoarthritis, left knee
[2018-09-24] MEDS: WARFARIN SOD 5 MG TAB PO SCH (16:06)
[2018-09-24] MEDS: ROSUVASTATIN CALCIUM 10 MG TAB PO SCH (20:28)
[2018-09-24] MEDS: PANTOprazole 40 MG TAB PO SCH (20:28)
[2018-09-24] MEDS: SENNA 8.6 MG TAB PO SCH (20:29)
[2018-09-25] MEDS: HYDROmorphone INJ 0.5 MG/0.5 ML SYR IV PRN ×6 (00:04→23:24)
[2018-09-25] MEDS: OXYCODONE HCL IR 5 MG TAB (IMMEDIATE RELEASE) PO PRN ×4 (03:14→15:43)
[2018-09-25] MEDS: ACETAMINOPHEN 500 MG TAB PO SCH ×3 (05:34→22:03)
[2018-09-25] MEDS: LEVOTHYROXINE SODIUM 100 MCG TABLET PO SCH (05:34)
[2018-09-25 05:42] LABS: Hematocrit (blood only) 27.5 % (37-47); Hemoglobin 9.1 g/dL (12.0-16.0); Mean Corpuscular Hgb Conc 33.1 g/dL (32-36); Mean Corpuscular Volume 86.5 fL (80-100); Red Blood Count 3.18 M/uL (4.2-5.4); White Blood Count 11.07 K/uL (4.8-10.8)
[2018-09-25 05:56] LABS: INR 1.6 (0.9-1.1); Prothrombin Time 16.1 Seconds (9.0-12.0)
[2018-09-25 06:10] LABS: Basophils # (auto) 0.02 K/uL (0-0.2); Basophils % (auto) 0.2 %; Eosinophils # (auto) 0.32 K/uL (0-0.5); Eosinophils % (auto) 2.9 %; Immature Granulocytes # (auto) 0.04 K/uL (0.00-0.02); Immature Granulocytes % (auto) 0.4 %; Lymphocytes % (auto) 11.7 %; Mean Platelet Volume 10.8 fL (7.4-10.4); Monocytes # (auto) 1.28 K/uL (0.11-0.59); Monocytes % (auto) 11.6 %; Neutrophils # (auto) 8.11 K/uL (1.4-6.5); Neutrophils % (auto) 73.2 %; Platelet Count 94 K/uL (130-400); Platelet Estimate Decreased (Normal); RBC Morphology Unremarkable
[2018-09-25 06:19] LABS: BUN Creatinine Ratio 13.8 (10-20); Calcium 8.8 mg/dl (8.5-10.1); Creatinine Clr Calc Pharmacy 30.7 ml/min; Est GFR (African American) 41.6; Est GFR (Non-African American) 35.9; Potassium 3.6 mmol/L (3.5-5.1)
[2018-09-25] MEDS: DOCUSATE SODIUM 100 MG CAP PO SCH ×2 (08:00→21:58)
[2018-09-25] MEDS: ROPINIROLE HCL 1 MG TABLET PO SCH ×3 (08:01→21:59)
[2018-09-25] MEDS: METOPROLOL TARTRATE 25 MG TAB PO SCH (08:01)
[2018-09-25] MEDS: THIAMINE HCL 50 MG TABLET PO SCH (08:02)
[2018-09-25] MEDS: CLOPIDOGREL BISULFATE 75 MG TAB PO SCH (08:02)
[2018-09-25] MEDS: FOLIC ACID 1 MG TAB PO SCH (08:02)
[2018-09-25] MEDS: AMITRIPTYLINE HCL 25 MG TAB PO SCH ×4 (08:02→21:58)
[2018-09-25] MEDS: POTASSIUM CHLORIDE 10 MEQ TABCR PO SCH (08:03)
[2018-09-25] MEDS: ENOXAPARIN INJ 60 MG/0.6 ML SYR SQ SCH ×2 (08:03→21:58)
[2018-09-25] MEDS: MULTIVITAMIN TAB PO SCH (08:04)
[2018-09-25] MEDS: INSULIN ASPART 100 UNITS/ML 3 ML PEN SC SCH ×4 (08:06→21:59)
--- NOTE | 2018-09-25 08:22 | Orthopedic Progress Note ---
Date of Service September 25, 2018 Assessment & Plan (1) Degenerative joint disease of left knee: s/p L TKA POD#2 -ancef x 24 -DVT ppx: SCDs, TEDs, restart patients home DVT meds, lovenox--> coumadin, follows coumadin clinic, plavix -WBAT LLE -PT/OT -HMV drain DC'd -XR L knee demonstrates a well aligned well fixed prosthesis without fracture/dislocation -am labs hgb 9.3, s/p 2 units PRBC, INR 1.6, Cr 1.51, at baseline -Medical hospitalist consult recs appreciated -DC planning - home with HH s/p L TKA POD#1 -ancef x 24 -DVT ppx: SCDs, TEDs, restart patients home DVT meds, lovenox--> coumadin, follows coumadin clinic, plavix -WBAT LLE -PT/OT -monitor drain output 50/564 -XR L knee demonstrates a well aligned well fixed prosthesis without fracture/dislocation -am labs hgb 7.3, acute post operative anemia secondary to richar-operative blood loss and dilusional effect. 2 units PRBC being tranfused today. -Medical hospitalist consult recs appreciated -DC planning - home with Subjective Post Operative Progress Note Patient seen in a.m. sitting up in bed, comfortable, denies complaints, pain improving, no acute issues overnight. Denies SOB, CP, feeling light headed, N/V. Review of Systems Review of Systems: All systems reviewed & are unremarkable except as noted in HPI & below Constitutional: as per Subjective / HPI Physical Exam Physical Exam: LLE NVSI +EHL/FHL/TA/GS SILT grossly, +2 DP pulse, compartments soft NT, incision cdi Constitutional: WD/WN, vitals as above Results & Data Vital Signs (Past 12 Hours) Vital Signs Temp Pulse Pulse Resp BP BP Pulse Ox 09/25/18 07:16 107 H 09/25/18 07:00 37 C 107 H 20 136/74 92 09/25/18 04:00 97 H 130/71 09/25/18 03:55 37.3 C 114 H 21 120/59 L 93 09/24/18 22:31 36.5 C 107 H 18 128/67 92 (1) Degenerative joint disease of left knee Osteoarthritis type: unspecified Qualified Code(s): M17.12 - Unilateral primary osteoarthritis, left knee
--- NOTE | 2018-09-25 09:47 | Hospitalist Progress Note ---
Date of Service September 25, 2018 Assessment & Plan (1) Degenerative joint disease of left knee: - POD#[address] Cormier - activity and wound care orders as per ortho - pain control with bowel regimen - PT/OT - monitor H/H for acute blood loss anemia and transfuse blood products PRN - received 2 units PRBC 8/7 for hgb 7.3 -> 9.1 today (2) Acute blood loss as cause of postoperative anemia: -received 2 units PRBC 8/7 for hgb 7.3 -hgb 9.1 today -patient on Lovenox/Coumadin bridge for mechanical valve; no signs of hematoma as per orthopedics (3) A-fib: - history of chronic a. fib - had a. fib with RVR post op - likely due to acute blood loss anemia - rate improved after transfusion; over night telemetry reviewed - occasionally elevate rates however not sustained, continue to monitor on tele - rate controlled on beta marjorie - on Lovenox/Coumadin bridge due to hx of mechanical mitral valve, INR 1.6 (4) Diabetes: -hgb a1c 5.8 08/2018 -diet controlled at home -Novolog per protocol while hospitalized (5) HTN (hypertension): - BP controlled, continue metoprolol (6) H/O mitral valve replacement with mechanical valve: -on Lovenox/Coumadin bridge due to hx of mechanical mitral valve, INR 1.6 (7) Coronary artery disease: - stable, no reports of chest pain - continue beta marjorie, statin, Plavix (8) CKD (chronic kidney disease), stage III: - baseline creat runs in the mid 1's - creat noted to be 1.5 today - continue to monitor, avoid nephrotoxic agents when able (9) Hypothyroidism: - Continue levothyroxine (10) GERD (gastroesophageal reflux disease): - continue PPI (11) DVT prophylaxis: - on Lovenox/Coumadin bridge as above Supervising Physician Co-Signing Physician Notes ATTENDING ADDENDUM Seen and examined, care coordinated with Cindy FARAH in agreement with assessment plan Vitals, as outlined Physical exam: General: Comfortable complains of some soreness on left knee after physical therapy HEENT: Nothing remarkable Heart: Irregular/mechanical mitral fall click noted left second intercostal space Lungs: Clear to auscultate no wheeze or rale Musculoskeletal: Status post left knee surgery, drain has removed today, bandage present with cold compression Normal capillary refill, normal pedal pulse Neuro: No focal neurological deficit /patient is alert awake oriented x3, conversing DJD OF LEFT KNEE, STATUS POST TKA Recovering well postop Continue PT OT, surgical wound care as per orthopedics HISTORY OF MECHANICAL MITRAL VALVE REPLACEMENT in 1993 Goal INR above 3 On Lovenox bridge and Coumadin INR 1.5 today ACUTE BLOOD LOSS ANEMIA POSTOP Corrected Hemoglobin improved to 9.1 after 2 units of PRBC transfusion CHRONIC A. FIB Remains in atrial fibrillation with variable heart rate [id number] Will symptom of palpitation chest heaviness or shortness of breath Continue to monitor in telemetry Please refer to further documentation by Cindy FARAH for discussion of other issues Cristin Mcguire MD Subjective Patient seen and examined. Sitting up in the chair, eating breakfast. Reports a lot of pain over night however much improved this morning after dressing change and pain medication. Denies chest pain, shortness of breath, palpitations, lightheadedness. No abdominal pain or nausea. Passing flatus however no BM yet. Physical Exam Constitutional: WD/WN, vitals as above no acute distress Eyes: PERRL, conjunctivae normal, anicteric sclerae ENMT: external ear and nose normal, oropharynx normal Neck: trachea midline, no thyromegaly Respiratory: normal respiratory effort, lungs clear to auscultation Cardiovascular: Rate/Rhythm: regular rate and + irregularly irregular; + abn ormal rhythm Heart Sounds: + click (Metallic valve click noted) Vessels: normal peripheral pulses Gastrointestinal (Abdomen): normal bowel sounds, soft, nontender, no hepatosplenomegaly Musculoskeletal: s/p left knee surgery, dressing dry and intact, +2 edema noted, scattered ecchymosis Skin: no rashes, warm and dry Neurologic: PERRL, EOMI, accommodation nl, no face palsy, no dysarthria Psychiatric: A+Ox3, euthymic affect Orientation: alert and oriented x 3 Results & Data Vital Signs (Past 12 Hours) Vital Signs Temp Pulse Pulse Resp BP BP Pulse Ox 09/25/18 07:16 107 H 09/25/18 07:00 37 C 107 H 20 136/74 92 09/25/18 04:00 97 H 130/71 09/25/18 03:55 37.3 C 114 H 21 120/59 L 93 08/07/19 22:31 36.5 C 107 H 18 128/67 92 Laboratory Results Short CBC 09/25/18 Range/Units 05:30 WBC 11.07 H (4.8-10.8) K/uL Hgb 9.1 L (12.0-16.0) g/dL Hct 27.5 L (37-47) % Plt Count 94 L (130-400) K/uL BMP 09/25/18 05:30 Sodium 140 Potassium 3.6 Chloride 105 Carbon Dioxide 30 BUN 21 H Creatinine 1.51 H Glucose 123 H Calcium 8.8 (1) Diabetes Diabetes mellitus complication status: without complication Diabetes mellitus meterman insulin use: without meterman use Diabetes mellitus type: type 2 Qualified Code(s): E11.9 - Type 2 diabetes mellitus without complications (2) Coronary artery disease Associated angina: without angina Coronary Disease-Associated Artery/Lesion type: [place] artery [place] vs. transplanted heart: [place] heart Qualified Code(s): I25.10 - Atherosclerotic heart disease of [place] coronary artery without angina pectoris (3) A-fib Atrial fibrillation type: chronic Qualified Code(s): I48.2 - Chronic atrial fibrillation (4) Hypothyroidism Hypothyroidism type: postablative Qualified Code(s): E89.0 - Postprocedural hypothyroidism (5) Degenerative joint disease of left knee Osteoarthritis type: unspecified Qualified Code(s): M17.12 - Unilateral primary osteoarthritis, left knee (6) GERD (gastroesophageal reflux disease) Esophagitis presence: without esophagitis Qualified Code(s): K21.9 - Gastro- esophageal reflux disease without esophagitis (7) HTN (hypertension) Hypertension type: unspecified Qualified Code(s): I10 - Essential (primary) hypertension
[2018-09-25] MEDS: WARFARIN SOD 5 MG TAB PO SCH (15:43)
[2018-09-25] MEDS: ROSUVASTATIN CALCIUM 10 MG TAB PO SCH (21:58)
[2018-09-25] MEDS: PANTOprazole 40 MG TAB PO SCH (21:59)
[2018-09-25] MEDS: SENNA 8.6 MG TAB PO SCH (22:00)
[2018-09-26] MEDS ORDERED: PIPERACILLIN/TAZOBACTAM 3.375 GM in DEXTROSE 5% 100 ML IV SCH (02:00)
[2018-09-26] MEDS: HYDROmorphone INJ 0.5 MG/0.5 ML SYR IV PRN ×3 (04:19→13:46)
[2018-09-26] MEDS: LEVOTHYROXINE SODIUM 100 MCG TABLET PO SCH (05:44)
[2018-09-26] MEDS: ACETAMINOPHEN 500 MG TAB PO SCH ×2 (05:44→14:19)
[2018-09-26 06:49] LABS: Hematocrit (blood only) 25.3 % (37-47); Hemoglobin 8.2 g/dL (12.0-16.0); Mean Corpuscular Hgb Conc 32.4 g/dL (32-36); Mean Corpuscular Volume 87.8 fL (80-100); Platelet Count 101 K/uL (130-400); RDW Coefficient of Variation 15.4 % (11.5-14.5); RDW Standard Deviation 49.5 fL (36.4-46.3); Red Blood Count 2.88 M/uL (4.2-5.4); White Blood Count 8.06 K/uL (4.8-10.8)
[2018-09-26 06:53] LABS: INR 2.4 (0.9-1.1); Prothrombin Time 23.5 Seconds (9.0-12.0)
[2018-09-26 07:26] LABS: BUN Creatinine Ratio 13.4 (10-20); Calcium 8.8 mg/dl (8.5-10.1); Est GFR (African American) 53.8; Est GFR (Non-African American) 46.5; Potassium 3.9 mmol/L (3.5-5.1)
--- NOTE | 2018-09-26 07:42 | Orthopedic Progress Note ---
Date of Service September 26, 2018 Assessment & Plan (1) Degenerative joint disease of left knee: s/p L TKA POD#3 -ancef x 24 -DVT ppx: SCDs, TEDs, restart patients home DVT meds, lovenox--> coumadin, follows coumadin clinic, plavix -WBAT LLE -PT/OT -XR L knee demonstrates a well aligned well fixed prosthesis without fracture/dislocation -am labs hgb 8.2, Cr 1.22, INR 2.4 -Medical hospitalist consult recs appreciated -DC planning - home with POD#2 -ancef x 24 -DVT ppx: SCDs, TEDs, restart patients home DVT meds, lovenox--> coumadin, follows coumadin clinic, plavix -WBAT LLE -PT/OT -HMV drain DC'd -XR L knee demonstrates a well aligned well fixed prosthesis without fra cture/dislocation -am labs hgb 9.3, s/p 2 units PRBC, INR 1.6, Cr 1.51, at baseline -Medical hospitalist consult recs appreciated -DC planning - home with s/p L TKA POD#1 -ancef x 24 -DVT ppx: SCDs, TEDs, restart patients home DVT meds, lovenox--> coumadin, follows coumadin clinic, plavix -WBAT LLE -PT/OT -monitor drain output 50/564 -XR L knee demonstrates a well aligned well fixed prosthesis without fracture/dislocation -am labs hgb 7.3, acute post operative anemia secondary to richar-operative blood loss and dilusional effect. 2 units PRBC being tranfused today. -Medical hospitalist consult recs appreciated -DC planning - home with Subjective Post Operative Progress Note Patient seen sitting up in bed, comfortable, denies complaints, pain well controlled, no acute issues. Denies SOB/CP/F/C/N/V Review of Systems Review of Systems: All systems reviewed & are unremarkable except as noted in HPI & below Constitutional: as per Subjective / HPI Physical Exam Physical Exam: LLE NVSI +EHL/FHL/TA/GS SILT grossly, +2 DP pulse, compartments soft NT, dressing cdi. Constitutional: WD/WN, vitals as above Results & Data Vital Signs (Past 12 Hours) Vital Signs Temp Pulse Resp BP Pulse Ox 08/09/19 07:12 36.7 C 105 H 20 150/71 H 96 09/26/18 04:00 36.7 C 103 H 16 154/71 H 96 09/25/18 23:50 37.5 C 100 H 16 135/70 96 09/25/18 19:49 36.8 C 105 H 16 142/71 H 96 (1) Degenerative joint disease of left knee Osteoarthritis type: unspecified Qualified Code(s): M17.12 - Unilateral primary osteoarthritis, left knee
[2018-09-26] MEDS: FUROSEMIDE 40 MG TAB PO SCH (08:38)
[2018-09-26] MEDS: ROPINIROLE HCL 1 MG TABLET PO SCH ×3 (08:38→20:52)
[2018-09-26] MEDS: THIAMINE HCL 50 MG TABLET PO SCH (08:39)
[2018-09-26] MEDS: METOPROLOL TARTRATE 25 MG TAB PO SCH (08:39)
[2018-09-26] MEDS: MULTIVITAMIN TAB PO SCH (08:39)
[2018-09-26] MEDS: POTASSIUM CHLORIDE 10 MEQ TABCR PO SCH (08:39)
[2018-09-26] MEDS: FOLIC ACID 1 MG TAB PO SCH (08:39)
[2018-09-26] MEDS: ENOXAPARIN INJ 60 MG/0.6 ML SYR SQ SCH ×2 (08:39→19:09)
[2018-09-26] MEDS: DOCUSATE SODIUM 100 MG CAP PO SCH ×2 (08:39→20:51)
[2018-09-26] MEDS: CLOPIDOGREL BISULFATE 75 MG TAB PO SCH (08:40)
[2018-09-26] MEDS: AMITRIPTYLINE HCL 25 MG TAB PO SCH ×4 (08:40→20:52)
[2018-09-26] MEDS: METOCLOPRAMIDE HCL INJ 5 MG/ML 2 ML VIAL IV PRN (08:45)
[2018-09-26] MEDS: INSULIN ASPART 100 UNITS/ML 3 ML PEN SC SCH ×4 (08:48→21:41)
[2018-09-26] MEDS: MAGNESIUM HYDROXIDE SUSP 30 ML UDC PO PRN (09:08)
[2018-09-26] MEDS: OXYCODONE HCL IR 5 MG TAB (IMMEDIATE RELEASE) PO PRN ×2 (11:02→17:05)
[2018-09-26] MEDS ORDERED: SODIUM CHLORIDE 0.9% 250 ML IV PRN ×2 (12:49→23:18)
[2018-09-26] MEDS ORDERED: FUROSEMIDE 20 MG in SYRINGE 0 ML IV SCH (13:30)
[2018-09-26] MEDS: WARFARIN SOD 5 MG TAB PO SCH (15:30)
[2018-09-26] MEDS: ACETAMINOPHEN 500 MG TAB PO PRN (18:23)
--- NOTE | 2018-09-26 19:11 | Hospitalist Progress Note ---
Date of Service September 26, 2018 Assessment & Plan (1) Degenerative joint disease of left knee: - POD#[address] Cormier - activity and wound care orders as per ortho - pain control with bowel regimen - PT/OT - monitor H/H for acute blood loss anemia and transfuse blood products PRN - received 2 units PRBC 8/7 for hgb 7.3 -> 9.1 today (2) Acute blood loss as cause of postoperative anemia: -received 2 units PRBC 8/7 for hgb 7.3 -hgb 9.1 dropped to 8.1 today ordered for 1 unit of PRBC transfusion -patient on Lovenox/Coumadin bridge for mechanical valve; no signs of hematoma as per orthopedics (3) A-fib: - history of chronic a. fib - had a. fib with RVR post op - likely due to acute blood loss anemia - cont to correct anemia to keep hb 10 - on Lovenox/Coumadin bridge due to hx of mechanical mitral valve, INR 2.4 on metoprolol for rate control noted to have recurrent episode of Afib RVR , pt is asymtomatic ordered IV lopressor cardiololgy eval requested (4) Diabetes: -hgb a1c 5.8 08/2018 -diet controlled at home -Novolog per protocol while hospitalized (5) HTN (hypertension): - BP controlled, continue metoprolol (6) H/O mitral valve replacement with mechanical valve: -on Lovenox/Coumadin bridge due to hx of mechanical mitral valve, INR 1.6 (7) Coronary artery disease: - stable, no reports of chest pain - continue beta marjorie, statin, Plavix (8) CKD (chronic kidney disease), stage III: - baseline creat runs in the mid 1's - creat noted to be 1.5 today - continue to monitor, avoid nephrotoxic agents when able (9) Hypothyroidism: - Continue levothyroxine (10) GERD (gastroesophageal reflux disease): - continue PPI (11) DVT prophylaxis: - on Lovenox/Coumadin bridge as above Subjective pt found to be in rapid afib RVR at 8 am HR was 150 max with variable HR between 120-130's lasted for 1 hr HR in 90-100's now pt denies of any feeling of palpitation , SOB or dizzy spell pain in left knee well controlled got lopressor AM dose HB dropped to 8.2 from yesterdays value of 9.2 ordered for1 unit of PRBC tranfusion cont tele monitor discussed with Ortho team , pt will need to stay in hospital for HR control and correction of anemia INR 2.4 today on coumadin and Lovenox [place] bridge Physical Exam Constitutional: WD/WN, vitals as above no acute distress Eyes: PERRL, conjunctivae normal, anicteric sclerae ENMT: external ear and nose normal, oropharynx normal Neck: trachea midline, no thyromegaly Respiratory: normal respiratory effort, lungs clear to auscultation Cardiovascular: Rate/Rhythm: regular rate and + irregularly irregular; + abnormal rhythm Heart Sounds: + click (Metallic valve click noted) Vessels: normal peripheral pulses Gastrointestinal (Abdomen): normal bowel sounds, soft, nontender, no hepatosplenomegaly Skin: no rashes, warm and dry Neurologic: PERRL, EOMI, accommodation nl, no face palsy, no dysarthria Psychiatric: A+Ox3, euthymic affect Orientation: alert and oriented x 3 Results & Data Vital Signs (Past 12 Hours) Vital Signs Temp Pulse Pulse Resp BP BP BP 09/26/18 17:03 38 C H 110 H 18 146/68 H 09/26/18 16:03 38.1 C H 113 H 18 146/70 H 09/26/18 15:56 37.1 C 109 H 18 146/67 H 09/26/18 15:30 37.1 C 109 H 18 146/67 H 09/26/18 15:00 37.2 C 95 H 18 138/70 09/26/18 14:30 37.0 C 106 H 18 130/69 09/26/18 14:17 37.0 C 104 H 18 126/74 09/26/18 13:59 36.8 C 101 H 18 155/70 H 09/26/18 11:52 37.3 C 80 18 136/70 09/26/18 07:12 36.7 C 105 H 20 150/71 H Pulse Ox 09/26/18 17:03 94 09/26/18 16:03 96 09/26/18 15:56 99 09/26/18 15:30 99 09/26/18 15:00 97 09/26/18 14:30 99 09/26/18 14:17 09/26/18 13:59 97 09/26/18 11:52 96 09/26/18 07:12 96 (1) Diabetes Diabetes mellitus complication status: without complication Diabetes mellitus intermediate card tender insulin use: without retirement use Diabetes mellitus type: type 2 Qualified Code(s): E11.9 - Type 2 diabetes mellitus without complications (2) Coronary artery disease Associated angina: without angina Coronary Disease-Associated Artery/Lesion type: [place] artery [place] vs. transplanted heart: [place] heart Qualified Code(s): I25.10 - Atherosclerotic heart disease of [place] coronary artery without angina pectoris (3) A-fib Atrial fibrillation type: chronic Qualified Code(s): I48.2 - Chronic atrial fibrillation (4) Hypothyroidism Hypothyroidism type: postablative Qualified Code(s): E89.0 - Postprocedural hypothyroidism (5) Degenerative joint disease of left knee Osteoarthritis type: unspecified Qualified Code(s): M17.12 - Unilateral primary osteoarthritis, left knee (6) GERD (gastroesophageal reflux disease) Esophagitis presence: without esophagitis Qualified Code(s): K21.9 - Gastro- esophageal reflux disease without esophagitis (7) HTN (hypertension) Hypertension type: unspecified Qualified Code(s): I10 - Essential (primary) hypertension
[2018-09-26] MEDS: METOPROLOL TARTRATE 1 MG/ML VIAL IV PRN (19:19)
[2018-09-26] MEDS ORDERED: VANCOMYCIN CONSULT ACTIVE PRN (19:44)
[2018-09-26] MEDS ORDERED: PIPERACILL/TAZOBAC CONSULT ACTIVE PRN (19:45)
--- NOTE | 2018-09-26 20:12 | Pharmacy Report ---
Pharmacy Abx Initial Consult - Date of Service September 26, 2018 - Pharmacy Dosing Scope Date of Consult: 09/26/18 Consultation requested by: Dr. Mcguire Pharmacy is consulted to initiate Vancomycin & Zosyn IV dosing therapy, order appropriate labs and adjust drug dose/frequency. - Subjective The patient is a 63 year old F admitted on 09/23/18 10:21. - Objective Height: 5 ft 3 in Weight: 61.1 kg Vital Signs (Past 12hrs): Vital Signs Temp Pulse Pulse Resp BP BP BP 09/26/18 19:35 38 C H 84 20 141/75 H 09/26/18 19:19 137 H 154/71 H 09/26/18 19:18 39.2 C H 137 H 154/71 H 09/26/18 17:03 38 C H 110 H 18 146/68 H 09/26/18 16:03 38.1 C H 113 H 18 146/70 H 09/26/18 15:56 37.1 C 109 H 18 146/67 H 09/26/18 15:30 37.1 C 109 H 18 146/67 H 09/26/18 15:00 37.2 C 95 H 18 138/70 09/26/18 14:30 37.0 C 106 H 18 130/69 09/26/18 14:17 37.0 C 104 H 18 126/74 09/26/18 13:59 36.8 C 101 H 18 155/70 H 09/26/18 11:52 37.3 C 80 18 136/70 Pulse Ox 09/26/18 19:35 95 09/26/18 19:19 09/26/18 19:18 93 09/26/18 17:03 94 09/26/18 16:03 96 09/26/18 15:56 99 09/26/18 15:30 99 09/26/18 15:00 97 09/26/18 14:30 99 09/26/18 14:17 09/26/18 13:59 97 09/26/18 11:52 96 Lab Results (24hrs): Laboratory Tests (24 Hours) 09/26/18 09/26/18 06:21 06:21 WBC 8.06 Creatinine 1.22 H Est Cr Clr Drug Dosing 38.0 Micro Results: 09/08/18 Unknown Urine Culture - Final Urine,Clean Catch Three types of organisms present, all low counts probable skin demarcus. No further identifications or sensitivities to follow. - Assessment & Plan Assessment 63 year old F POD 3 TKA, febrile, starting IV Vancomycin and Zosyn for bone/joint infection. Plan Vancomycin IV * Estimated PK Parameters: Vd 0.7L/kg, Margarito 0.036hr-1, t1/2 19hr * Loading dose: 1500 mg (25 mg/kg) * Maintenance dose: 1000 mg IV (16 mg/kg) every 24 hours * Goal trough level for bone/joint infection : 17-20 mcg/mL * Trough level ordered for 09/29/18 Piperacillin/tazobactam * 3.375 g bolus administered over 30 minutes, then 3.375 g IV extended infusion every 8 hours for CrCl greater than 20 mL/min Pharmacy will continue to follow and will adjust dose/frequency as necessary. Thank you.
[2018-09-26] MEDS ORDERED: VANCOMYCIN HCL 1,500 MG in SODIUM CHLORIDE 0.9% 500 ML IV ONE (20:30)
[2018-09-26] MEDS ORDERED: PIPERACILLIN/TAZOBACTAM 3.375 GM in DEXTROSE 5% 100 ML IV ONE (20:30)
[2018-09-26] MEDS: ROSUVASTATIN CALCIUM 10 MG TAB PO SCH (20:52)
[2018-09-26] MEDS: SENNA 8.6 MG TAB PO SCH (20:52)
[2018-09-26] MEDS: PANTOprazole 40 MG TAB PO SCH (20:52)
--- NOTE | 2018-09-26 21:39 | Consultation Report ---
DATE OF CONSULTATION: 09/26/2018 INPATIENT CARDIOLOGY CONSULTATION CONSULTATION REQUESTED BY: Dr. Mcguire. REASON FOR CONSULTATION: Chronic atrial fibrillation with RVR. HISTORY OF PRESENT ILLNESS: Ms. Bowling is a very pleasant 63-year-old woman who follows very closely with Dr. Hadley Molina for over 25 years for history of mechanical mitral valve replacement and chronic atrial fibrillation. She presented to [facility] on 09/23/2018 for a scheduled outpatient elective total knee replacement on the left. Surgery was uncomplicated. Unfortunately, afterwards she developed significant anemia requiring transfusion with a hemoglobin going down into the 7s. Her anticoagulation was bridged appropriately. However, after she became anemic, her heart rate is elevated into the one-teens and cardiology was consulted. Clinically, the patient states that she feels well. She states her knee is doing well and she denies any chest pain, shortness of breath, palpitations, lightheadedness, dizziness, or syncope. She does feel very rundown though from being anemic. PAST SURGICAL HISTORY: 1. Mechanical mitral valve replacement with a Roe [employer] prosthesis in 1993. 2. Appendectomy. 3. Cholecystectomy. 4. Total abdominal hysterectomy. 5. Tubal ligation. 6. Upper endoscopies. 7. Colonoscopies. MEDICAL ILLNESSES: 1. Rheumatic valvular heart disease, status post mechanical mitral valve replacement, on chronic Coumadin therapy. 2. Chronic atrial fibrillation with severe left atrial enlargement. 3. Past embolic myocardial infarction and TIA, on chronic anticoagulation plus antiplatelet therapy with clopidogrel. 4. Diabetes. 5. Hyperlipidemia. 6. Chronic renal insufficiency. 7. Degenerative joint disease. FAMILY HISTORY: Noncontributory. SOCIAL HISTORY: Denies any alcohol, tobacco or recreational drug use. REVIEW OF SYSTEMS: As per HPI, all other review of systems is reviewed and negative at this time. ALLERGIES: 1. PERRY INHIBITORS. 2. PHENOTHIAZINES. 3. PROCHLORPERAZINE. 4. TETRACYCLINE. MEDICATIONS AN OUTPATIENT: 1. Warfarin 5 mg daily as directed by the [facility]. 2. Plavix 75 mg daily. 3. Metoprolol tartrate 25 mg daily as per patient's preference. 4. Lasix 40 mg 3 times a week. 5. Lovenox bridge. 6. Crestor 10 mg daily. 7. Prilosec. 8. Tramadol. 9. Folic acid. 10. Levothyroxine. 11. Elavil. PHYSICAL EXAMINATION: VITAL SIGNS: Temperature 37.1, pulse 109, respiratory rate 12, blood pressure 146/67. GENERAL: Awake, alert, oriented x3, in no acute distress. HEENT: Normocephalic, atraumatic. Pupils equal, round, reactive to light and accommodation. Extraocular muscles intact. Anicteric sclerae. Moist mucous membranes. NECK: No JVD, no bruit. CARDIOVASCULAR: Irregularly irregular with a mechanical S1. PULMONARY: Clear to auscultation bilaterally. No rales, rhonchi, or wheezing. ABDOMEN: Bowel sounds x4, soft. No rebound, guarding, or tenderness. No organomegaly. EXTREMITIES: No clubbing, cyanosis or edema. +2 pedal pulses bilaterally. SKIN: Warm and dry. TEST RESULTS: Review of telemetry monitoring shows atrial fibrillation with variable response ranging from the 90s to one-teens. LABORATORY STUDIES OF SIGNIFICANCE: Current hemoglobin of 8.2, to be transfused an additional unit of packed red blood cells. IMPRESSION: 1. Chronic atrial fibrillation with compensatory rapid ventricular response given significant blood loss anemia. 2. Postoperative blood loss anemia, currently being transfused. 3. Mechanical mitral valve replacement secondary to rheumatic mitral disease, on chronic Coumadin therapy, currently being bridged with Lovenox. 4. Chronic atrial fibrillation with severe left atrial enlargement. RECOMMENDATIONS: It was my pleasure to see Ms. Bowling in reevaluation today. From a cardiac standpoint, she is doing very well and I believe her RVR is compensatory and physiologic in nature given her blood loss anemia, so at this point I recommend to continue transfusion with a goal hemoglobin greater than 9 from a cardiac standpoint. Unfortunately, her anticoagulation must not nor has it been interrupted and will be continued. She is currently taking metoprolol tartrate daily that could be increased to b.i.d. for now for further rate control, but I would not make any other significant changes given the fact that this is compensatory.
[2018-09-26 21:59] LABS: Hematocrit (blood only) 27.3 % (37-47); Mean Corpuscular Volume 86.9 fL (80-100); Mean Platelet Volume 10.2 fL (7.4-10.4); Platelet Count 113 K/uL (130-400); RDW Coefficient of Variation 14.9 % (11.5-14.5); RDW Standard Deviation 46.5 fL (36.4-46.3); Red Blood Count 3.14 M/uL (4.2-5.4); White Blood Count 9.34 K/uL (4.8-10.8)
[2018-09-26] MEDS ORDERED: FUROSEMIDE 10 MG in SYRINGE 0 ML IV ONE (23:59)
[2018-09-27] MEDS: METOCLOPRAMIDE HCL INJ 5 MG/ML 2 ML VIAL IV PRN ×2 (00:32→16:29)
[2018-09-27] MEDS: HYDROmorphone INJ 0.5 MG/0.5 ML SYR IV PRN ×5 (00:32→22:30)
[2018-09-27] MEDS: PIPERACILLIN/TAZOBACTAM 3.375 GM in DEXTROSE 5% 100 ML IV SCH ×3 (02:52→17:34)
[2018-09-27] MEDS: LEVOTHYROXINE SODIUM 100 MCG TABLET PO SCH (06:00)
[2018-09-27 09:03] LABS: Hemoglobin 10.1 g/dL (12.0-16.0)
[2018-09-27] MEDS: METOPROLOL TARTRATE 1 MG/ML VIAL IV PRN (09:03)
[2018-09-27] MEDS: FUROSEMIDE 20 MG TAB PO SCH (09:05)
[2018-09-27] MEDS: THIAMINE HCL 50 MG TABLET PO SCH (09:05)
[2018-09-27] MEDS: POTASSIUM CHLORIDE 10 MEQ TABCR PO SCH (09:05)
[2018-09-27] MEDS: FOLIC ACID 1 MG TAB PO SCH (09:05)
[2018-09-27] MEDS: AMITRIPTYLINE HCL 25 MG TAB PO SCH ×4 (09:06→20:40)
[2018-09-27] MEDS: ROPINIROLE HCL 1 MG TABLET PO SCH ×3 (09:06→20:42)
[2018-09-27] MEDS: DOCUSATE SODIUM 100 MG CAP PO SCH ×2 (09:06→20:42)
[2018-09-27] MEDS: MULTIVITAMIN TAB PO SCH (09:06)
[2018-09-27] MEDS: INSULIN ASPART 100 UNITS/ML 3 ML PEN SC SCH ×4 (09:09→21:13)
[2018-09-27] MEDS: METOPROLOL TARTRATE 25 MG TAB PO SCH ×2 (09:13→20:40)
[2018-09-27 09:16] LABS: INR 3.3 (0.9-1.1); Prothrombin Time 30.8 Seconds (9.0-12.0)
[2018-09-27 09:18] LABS: BUN Creatinine Ratio 10.2 (10-20); Calcium 8.7 mg/dl (8.5-10.1); Creatinine Clr Calc Pharmacy 34.9 ml/min; Est GFR (African American) 48.5; Est GFR (Non-African American) 41.8; Potassium 3.6 mmol/L (3.5-5.1)
--- NOTE | 2018-09-27 10:37 | Cardiology Progress Note ---
Date of Service September 27, 2018 Assessment & Plan (1) S/P TKR (total knee replacement): (2) Acute blood loss as cause of postoperative anemia: (3) H/O mitral valve replacement with mechanical valve: (4) Rheumatic disease of heart valve: (5) Diabetes type 2, controlled: (6) History of CVA (cerebrovascular accident): (7) Atrial fibrillation: The patient's elevated heart rate is multifactorial including anemia and anxiety. Recommend increasing metoprolol as needed. Her INR today is 3.2. She is still having some bleeding from her surgical site and at this time I would recommend continuing to hold her Plavix. If her INR continues to elevate then we will have to hold her warfarin as well. Subjective The patient is up ambulating but has some bleeding from her knee surgery. She was transfused yesterday. Her INR currently is 3.3. Plavix which she takes as an outpatient is on hold. Review of Systems Review of Systems: All systems reviewed & are unremarkable except as noted in HPI & below No additional. Physical Exam Physical Exam: General: no acute distress and stated age Head: normocephalic, no masses, lesions, tenderness or abnormalities Eyes: conjunctiva are pink and non-injected, sclera clear Neck: supple, no adenopathy, no bruits, normal jugular venous pulse, no hepatojugular reflux Chest: normal shape and normal respiratory effort Lungs: clear to auscultation and percussion Cardiac Exam: - irregular rate & rhythm, no murmurs gallops or rubs -mechanical S1 Pulses: 2(+) throughout Abdomen: abdomen soft, non-tender, no abnormal masses and no hepatosplenomegaly Musculoskeletal: no gait disturbance, no joint inflammation, no deforming arthritis Extremities: no edema and no cyanosis Neuro: grossly normal exam Results & Data Vital Signs (Past 12 Hours) Vital Signs Temp Pulse Pulse Resp BP BP BP 09/27/18 09:03 123 H 154/69 H 09/27/18 07:29 114 H 09/27/18 07:20 37.2 C 111 H 18 154/69 H 09/27/18 04:15 36.9 C 104 H 18 126/68 09/27/18 03:45 37.1 C 102 H 20 122/73 09/27/18 02:45 37.2 C 107 H 20 129/71 09/27/18 01:00 36.8 C 115 H 18 124/74 09/27/18 00:41 36.8 C 109 H 16 137/71 09/26/18 22:45 36.3 C L 105 H 18 126/67 Pulse Ox 09/27/18 09:03 09/27/18 07:29 09/27/18 07:20 95 09/27/18 04:15 96 09/27/18 03:45 96 09/27/18 02:45 97 09/27/18 01:00 09/27/18 00:41 98 09/26/18 22:45 97 Laboratory Results Laboratory Results - last 24 hr 09/23/18 09/26/18 09/26/18 05:40 06:21 11:55 WBC RBC Hgb Hct MCV MCH MCHC RDW Std Deviation RDW Coeff of Courtney Plt Count MPV PT INR Sodium Potassium Chloride Carbon Dioxide Anion Gap BUN Creatinine Est Cr Clr Drug Dosing Est GFR ( Amer) Est GFR (Non-Af Amer) BUN/Creatinine Ratio Glucose POC Glucose 109 H Calcium Blood Type A Positive Antibody Screen NEGATIVE Crossmatch See Detail See Detail 09/26/18 09/26/18 09/26/18 18:51 20:09 21:52 WBC 9.34 RBC 3.14 L Hgb 9.0 L Hct 27.3 L MCV 86.9 MCH 28.7 MCHC 33.0 RDW Std Deviation 46.5 H RDW Coeff of Courtney 14.9 H Plt Count 113 L MPV 10.2 PT INR Sodium Potassium Chloride Carbon Dioxide Anion Gap BUN Creatinine Est Cr Clr Drug Dosing Est GFR ( Amer) Est GFR (Non-Af Amer) BUN/Creatinine Ratio Glucose POC Glucose 232 H 192 H Calcium Blood Type Antibody Screen Crossmatch 09/27/18 09/27/18 09/27/18 07:30 08:52 08:52 WBC RBC Hgb 10.1 L Hct 30.0 L MCV MCH MCHC RDW Std Deviation RDW Coeff of Courtney Plt Count MPV PT INR Sodium 137 Potassium 3.6 Chloride 103 Carbon Dioxide 29 Anion Gap 5.0 BUN 14 Creatinine 1.33 H Est Cr Clr Drug Dosing 34.9 Est GFR ( Amer) 48.5 Est GFR (Non-Af Amer) 41.8 BUN/Creatinine Ratio 10.2 Glucose 197 H POC Glucose 124 H Calcium 8.7 Blood Type Antibody Screen Crossmatch 09/27/18 08:52 WBC RBC Hgb Hct MCV MCH MCHC RDW Std Deviation RDW Coeff of Courtney Plt Count MPV PT 30.8 H INR 3.3 H Sodium Potassium Chloride Carbon Dioxide Anion Gap BUN Creatinine Est Cr Clr Drug Dosing Est GFR ( Amer) Est GFR (Non-Af Amer) BUN/Creatinine Ratio Glucose POC Glucose Calcium Blood Type Antibody Screen Crossmatch Medications Administered Current Inpatient Medications Acetaminophen (Tylenol) 1,000 mg PO Q8 PRN PRN Reason: pain/fever Stop: 10/23/18 13:59 Last Admin: 09/26/18 18:23 Dose: 1,000 mg Documented by: Amitriptyline HCl (Elavil) 25 mg PO QID [facility] Stop: 10/23/18 16:59 Last Admin: 09/27/18 09:06 Dose: 25 mg Documented by: Bisacodyl (Dulcolax) 10 mg OR DAILY PRN PRN Reason: Constipation Stop: 10/23/18 11:05 Dextrose (Dextrose 50%) 25 - 50 ml IV UD PRN; Protocol PRN Reason: Hypoglycemia Protocol Stop: 10/23/18 14:21 Diphenhydramine HCl (Benadryl Capsule) 25 mg PO Q8H PRN PRN Reason: Itching Stop: 10/23/18 11:05 Docusate Sodium (Colace) 100 mg PO BID [facility] Stop: 10/23/18 20:59 Last Admin: 09/27/18 09:06 Dose: 100 mg Documented by: Folic Acid (Folvite) 1 mg PO QAM [facility] Stop: 10/23/18 11:05 Last Admin: 09/27/18 09:05 Dose: 1 mg Documented by: Furosemide (Lasix) 20 mg PO QAM [facility] Stop: 10/27/18 08:59 Last Admin: 09/27/18 09:05 Dose: 20 mg Documented by: Glucagon (Glucagen) 1 mg SQ UD PRN; Protocol PRN Reason: Hypoglycemia Protocol Stop: 10/23/18 14:21 Glucose (Glucose 40%) 15 - 30 gm PO UD PRN; Protocol PRN Reason: Hypoglycemia Protocol Stop: 10/23/18 14:21 Glucose (Dex4 Glucose) 4 - 8 tabs PO UD PRN; Protocol PRN Reason: Hypoglycemia Protocol Stop: 10/23/18 14:21 Hydromorphone HCl (Dilaudid) 0.5 mg IV Q4H PRN PRN Reason: Pain Stop: 10/07/18 11:05 Last Admin: 09/27/18 09:08 Dose: 0.5 mg Documented by: Sodium Chloride (Nss) 250 mls @ 15 mls/hr IV .[id number] PRN PRN Reason: For Transfusion Stop: 10/26/18 12:48 Vancomycin HCl 1,000 mg/ (Sodium Chloride) 270 mls @ 125 mls/hr IV DAILY@1400 [facility] Stop: 11/08/18 13:59 Sodium Chloride (Nss) 250 mls @ 15 mls/hr IV .[id number] PRN PRN Reason: For Transfusion Stop: 10/26/18 23:17 Piperacillin Sod/Tazobactam (Sod 3.375 gm/ Dextrose) 115 mls @ 28.75 mls/hr IV Q8H [facility]; Protocol Stop: 11/08/18 01:59 Last Infusion: 09/27/18 03:06 Dose: 0 mls/hr Documented by: Insulin Aspart (Novolog Flexpen) 0 units SC ACHS [facility] Stop: 10/23/18 20:59 Last Admin: 09/27/18 09:09 Dose: 5 units Documented by: Levothyroxine Sodium (Synthroid) 100 mcg PO DAILYBB [facility] Stop: 10/23/18 11:59 Last Admin: 09/27/18 06:00 Dose: 100 mcg Documented by: Magnesium Hydroxide (Milk Of Magnesia) 30 ml PO Q6H PRN PRN Reason: Constipation Stop: 10/23/18 11:05 Last Admin: 09/26/18 09:08 Dose: 30 ml Documented by: Metoclopramide HCl (Reglan) 10 mg IV Q6H PRN PRN Reason: Nausea And Vomiting Stop: 10/23/18 11:05 Last Admin: 09/27/18 00:32 Dose: 10 mg Documented by: Metoprolol Tartrate (Lopressor) 5 mg IV Q6 PRN PRN Reason: HR> 100 Stop: 10/26/18 17:59 Last Admin: 09/27/18 09:03 Dose: 5 mg Documented by: Metoprolol Tartrate (Lopressor) 25 mg PO BID [facility] Stop: 10/27/18 08:59 Last Admin: 09/27/18 09:13 Dose: 25 mg Documented by: Miscellaneous (Carbohydrates For Hypoglycemia) 15 - 30 gm PO UD PRN PRN Reason: Hypoglycemia Treatment Stop: 10/23/18 14:21 Miscellaneous Information (Consult) 1 ea N/A UD PRN PRN Reason: Consult Stop: 10/26/18 19:43 Miscellaneous Information (Consult) 1 ea N/A UD PRN PRN Reason: Consult Stop: 10/26/18 19:44 Multivitamins (Multivitamin Tab) 1 tab PO QAM [facility] Stop: 10/24/18 08:59 Last Admin: 09/27/18 09:06 Dose: Not Given Documented by: Naloxone HCl (Narcan) 0.1 mg IV Q5M PRN PRN Reason: Oversedation/Resp Depression Stop: 10/23/18 11:05 Ondansetron HCl (Zofran) 4 mg IV Q6H PRN PRN Reason: Nausea And Vomiting Stop: 10/23/18 11:05 Oxycodone HCl (Roxicodone Immediate Rel) 5 - 10 mg PO Q4H PRN PRN Reason: Pain Stop: 10/07/18 11:05 Last Admin: 09/26/18 17:05 Dose: 10 mg Documented by: Pantoprazole Sodium (Protonix) 40 mg PO HS [facility] Stop: 10/23/18 20:59 Last Admin: 09/26/18 20:52 Dose: 40 mg Documented by: Potassium Chloride (Klor-Con M10) 10 meq PO DAILY [facility] Stop: 10/24/18 08:59 Last Admin: 09/27/18 09:05 Dose: 10 meq Documented by: Ropinirole HCl (Requip) 2 mg PO TID [facility] Stop: 10/23/18 13:59 Last Admin: 09/27/18 09:06 Dose: 2 mg Documented by: Rosuvastatin Calcium (Crestor) 10 mg PO QPM [facility] Stop: 10/23/18 20:59 Last Admin: 09/26/18 20:52 Dose: 10 mg Documented by: Sennosides (Senokot) 17.2 mg PO HS [facility] Stop: 10/23/18 20:59 Last Admin: 09/26/18 20:52 Dose: 17.2 mg Documented by: Thiamine HCl (Vitamin B-1) 50 mg PO QAM [facility] Stop: 10/23/18 11:05 Last Admin: 09/27/18 09:05 Dose: 50 mg Documented by: Warfarin Sodium (Coumadin) 5 mg PO DAILY@1600 [facility] Stop: 10/23/18 15:59 Last Admin: 09/26/18 15:30 Dose: 5 mg Documented by: (1) Diabetes type 2, controlled Diabetes mellitus ocean [employer] intermediary insulin use: without jail use Diabetes mellitus complication status: without complication Qualified Code(s): E11.9 - Type 2 diabetes mellitus without complications (2) Atrial fibrillation Atrial fibrillation type: unspecified Qualified Code(s): I48.91 - Unspecified atrial fibrillation
[2018-09-27] MEDS: OXYCODONE HCL IR 5 MG TAB (IMMEDIATE RELEASE) PO PRN ×3 (10:54→21:05)
[2018-09-27] MEDS ORDERED: VANCOMYCIN HCL 1,000 MG in SODIUM CHLORIDE 0.9% 250 ML IV SCH (14:00)
[2018-09-27] MEDS: WARFARIN SOD 5 MG TAB PO SCH (15:52)
--- NOTE | 2018-09-27 18:43 | Hospitalist Progress Note ---
Date of Service September 27, 2018 Assessment & Plan (1) A-fib: - history of chronic a. fib -Developed A. fib with RVR post op - likely due to acute blood loss anemia - cont to correct anemia to keep hb 10 -Lovenox bridge discontinued, patient is continued with Coumadin, INR 3.3 today Hold Plavix on metoprolol for rate control Dose increased to 12.5 mg twice daily Appreciate input from cardiology Continue to monitor and telemetry (2) H/O mitral valve replacement with mechanical valve: -Continue on Coumadin, INR 3.3 today Lovenox discontinued Given mechanical mitral valve INR should be kept above 3 (3) HTN (hypertension): -Continue metoprolol (4) Diabetes: -hgb a1c 5.8 08/2018 -diet controlled at home -Novolog per protocol while hospitalized (5) Degenerative joint disease of left knee: - POD#[address] Cormier -Postoperative course complicated by rapid A. fib RVR, acute blood loss anemia, with ongoing bleeding at the surgical site Patient is on multiple anticoagulation: Plavix, Coumadin and Lovenox bridge for mechanical mitral valve Plavix kept on hold/Lovenox bridge discontinued On Coumadin, INR 3.3 today-at goal We will continue to monitor H&H, and transfuse as needed to keep hemoglobin around 10 Patient so far received #4 units of PRBC transfusion 2 units PRBC on 09/24/2018 2 unit PRBC on 09/26/2018 (6) Acute blood loss as cause of postoperative anemia: -Continue to have bleeding at surgical site due to multiple anticoagulation on board Plavix, Lovenox subcu discontinued On Coumadin for mechanical mitral valve Follow H&H closely, Got total 4 units of PRBC transfusion so far, hemoglobin stable at 10.1 today (7) Coronary artery disease: - stable, no reports of chest pain/shortness of breath or angina symptom - continue beta marjorie, statin, -Lasix kept on hold for ongoing postop bleeding complication (8) CKD (chronic kidney disease), stage III: - baseline creat runs in the mid 1's - continue to monitor, avoid nephrotoxic agents when able (9) Hypothyroidism: - Continue levothyroxine (10) GERD (gastroesophageal reflux disease): - continue PPI (11) DVT prophylaxis: -On Coumadin, INR needs to be kept above 3 for mechanical mitral valve Subjective The patient is up ambulating but has some bleeding from her knee surgery. She was transfused yesterday. Her INR currently is 3.3. Plavix which she takes as an outpatient is on hold. Physical Exam Constitutional: WD/WN, vitals as above no acute distress Eyes: PERRL, conjunctivae normal, anicteric sclerae ENMT: external ear and nose normal, oropharynx normal Neck: trachea midline, no thyromegaly Respiratory: normal respiratory effort, lungs clear to auscultation Cardiovascular: Rate/Rhythm: regular rate and + irregularly irregular; + abnormal rhythm Heart Sounds: + click (Metallic valve click noted) Vessels: normal peripheral pulses Gastrointestinal (Abdomen): normal bowel sounds, soft, nontender, no hepatosplenomegaly Skin: no rashes, warm and dry Neurologic: PERRL, EOMI, accommodation nl, no face palsy, no dysarthria Psychiatric: A+Ox3, euthymic affect Orientation: alert and oriented x 3 Results & Data Vital Signs (Past 12 Hours) Vital Signs Temp Pulse Pulse Resp BP BP BP 09/27/18 16:05 37.1 C 09/27/18 15:00 37.8 C H 103 H 16 138/72 09/27/18 14:56 98 H 09/27/18 11:52 37.2 C 91 H 16 132/69 09/27/18 09:03 123 H 154/69 H 09/27/18 07:29 114 H 09/27/18 07:20 37.2 C 111 H 18 154/69 H Pulse Ox 09/27/18 16:05 09/27/18 15:00 97 09/27/18 14:56 09/27/18 11:52 94 09/27/18 09:03 09/27/18 07:29 09/27/18 07:20 95 (1) Degenerative joint disease of left knee Osteoarthritis type: unspecified Qualified Code(s): M17.12 - Unilateral primary osteoarthritis, left knee (2) A-fib Atrial fibrillation type: chronic Qualified Code(s): I48.2 - Chronic atrial fibrillation (3) Diabetes Diabetes mellitus type: type 2 Diabetes mellitus detention insulin use: without detention use Diabetes mellitus complication status: without complication Qualified Code(s): E11.9 - Type 2 diabetes mellitus without complications (4) HTN (hypertension) Hypertension type: unspecified Qualified Code(s): I10 - Essential (primary) hypertension (5) Coronary artery disease Coronary Disease-Associated Artery/Lesion type: [place] artery [place] vs. transplanted heart: [place] heart Associated angina: without angina Qualified Code(s): I25.10 - Atherosclerotic heart disease of [place] coronary artery without angina pectoris (6) Hypothyroidism Hypothyroidism type: postablative Qualified Code(s): E89.0 - Postprocedural hypothyroidism (7) GERD (gastroesophageal reflux disease) Esophagitis presence: without esophagitis Qualified Code(s): K21.9 - Gastro- esophageal reflux disease without esophagitis
[2018-09-27] MEDS: ROSUVASTATIN CALCIUM 10 MG TAB PO SCH (20:40)
[2018-09-27] MEDS: SENNA 8.6 MG TAB PO SCH (20:41)
[2018-09-27] MEDS: PANTOprazole 40 MG TAB PO SCH (20:42)
[2018-09-28] MEDS: OXYCODONE HCL IR 5 MG TAB (IMMEDIATE RELEASE) PO PRN ×3 (04:24→22:47)
[2018-09-28] MEDS: LEVOTHYROXINE SODIUM 100 MCG TABLET PO SCH (05:43)
[2018-09-28 07:23] LABS: Hemoglobin 9.8 g/dL (12.0-16.0); Mean Corpuscular Hgb Conc 32.7 g/dL (32-36); Mean Platelet Volume 9.8 fL (7.4-10.4); Platelet Count 146 K/uL (130-400); RDW Coefficient of Variation 15.5 % (11.5-14.5); RDW Standard Deviation 49.2 fL (36.4-46.3); Red Blood Count 3.41 M/uL (4.2-5.4); White Blood Count 10.47 K/uL (4.8-10.8)
[2018-09-28 07:40] LABS: BUN Creatinine Ratio 9.4 (10-20); Calcium 9.3 mg/dl (8.5-10.1); Creatinine Clr Calc Pharmacy 34.6 ml/min; Est GFR (African American) 48.1; Est GFR (Non-African American) 41.5; Potassium 3.9 mmol/L (3.5-5.1)
[2018-09-28 07:42] LABS: Prothrombin Time 35.9 Seconds (9.0-12.0)
[2018-09-28 07:47] LABS: INR 3.9 (0.9-1.1)
[2018-09-28] MEDS: INSULIN ASPART 100 UNITS/ML 3 ML PEN SC SCH ×4 (08:40→20:25)
[2018-09-28] MEDS: FOLIC ACID 1 MG TAB PO SCH (08:41)
[2018-09-28] MEDS: MULTIVITAMIN TAB PO SCH (08:41)
[2018-09-28] MEDS: POTASSIUM CHLORIDE 10 MEQ TABCR PO SCH (08:41)
[2018-09-28] MEDS: FUROSEMIDE 20 MG TAB PO SCH (08:42)
[2018-09-28] MEDS: DOCUSATE SODIUM 100 MG CAP PO SCH ×2 (08:42→20:02)
[2018-09-28] MEDS: METOPROLOL TARTRATE 25 MG TAB PO SCH ×2 (08:42→20:03)
[2018-09-28] MEDS: THIAMINE HCL 50 MG TABLET PO SCH (08:42)
[2018-09-28] MEDS: AMITRIPTYLINE HCL 25 MG TAB PO SCH ×4 (08:42→20:03)
[2018-09-28] MEDS: ROPINIROLE HCL 1 MG TABLET PO SCH ×3 (08:43→20:03)
[2018-09-28] MEDS: HYDROmorphone INJ 0.5 MG/0.5 ML SYR IV PRN ×2 (08:48→14:47)
--- NOTE | 2018-09-28 12:10 | Cardiology Progress Note ---
Date of Service September 28, 2018 Assessment & Plan (1) S/P TKR (total knee replacement): (2) Acute blood loss as cause of postoperative anemia: (3) H/O mitral valve replacement with mechanical valve: (4) Rheumatic disease of heart valve: (5) Diabetes type 2, controlled: (6) History of CVA (cerebrovascular accident): (7) Atrial fibrillation: The patient is stable from a cardiac standpoint. Unfortunately, she is in a great deal of pain from her prosthetic knee surgery. Although there does not appear to be any additional bleeding the leg is swollen and ecchymotic. We have asked orthopedic surgery to see the patient today.The patient's INR is 3.9 today and I will hold her warfarin and repeat the INR tomorrow. Subjective The patient is in a great deal pain from her recent TKR. There was some postoperative bleeding yesterday there is a wrap around the leg and now the leg is swollen. She has no cardiac complaints today. Review of Systems Review of Systems: All systems reviewed & are unremarkable except as noted in HPI & below Nothing additional: Physical Exam Physical Exam: General: no acute distress and stated age Head: normocephalic, no masses, lesions, tenderness or abnormalities Eyes: conjunctiva are pink and non-injected, sclera clear Neck: supple, no adenopathy, no bruits, normal jugular venous pulse, no hepatojugular reflux Chest: normal shape and normal respiratory effort Lungs: clear to auscultation and percussion Cardiac Exam: - irregular rate & rhythm, Metallic S1 - normal S1, normal S2 Pulses: 2(+) throughout Abdomen: abdomen soft, non-tender, no abnormal masses and no hepatosplenomegaly Musculoskeletal: no gait disturbance, no joint inflammation, no deforming arthritis Extremities: The left lower extremity is swollen and ecchymotic. Neuro: grossly normal exam Results & Data Vital Signs (Past 12 Hours) Vital Signs Temp Pulse Pulse Resp BP BP Pulse Ox 09/28/18 11:28 37.1 C 70 16 137/72 99 09/28/18 08:00 93 H 09/28/18 07:02 36.4 C L 92 H 16 149/70 H 93 09/28/18 03:56 36.9 C 109 H 21 127/65 97 09/28/18 01:53 103 H 09/28/18 00:09 37.2 C 92 H 16 130/65 93 Laboratory Results Laboratory Results - last 24 hr 09/27/18 09/27/18 09/28/18 16:43 20:48 07:13 WBC 10.47 RBC 3.41 L Hgb 9.8 L Hct 30.0 L MCV 88.0 MCH 28.7 MCHC 32.7 RDW Std Deviation 49.2 H RDW Coeff of Courtney 15.5 H Plt Count 146 MPV 9.8 PT INR Sodium Potassium Chloride Carbon Dioxide Anion Gap BUN Creatinine Est Cr Clr Drug Dosing Est GFR ( Amer) Est GFR (Non-Af Amer) BUN/Creatinine Ratio Glucose POC Glucose 189 H 138 H Calcium 09/28/18 09/28/18 09/28/18 07:13 07:13 07:35 WBC RBC Hgb Hct MCV MCH MCHC RDW Std Deviation RDW Coeff of Courtney Plt Count MPV PT 35.9 H INR 3.9 H Sodium 137 Potassium 3.9 Chloride 101 Carbon Dioxide 30 Anion Gap 6.0 BUN 13 Creatinine 1.34 H Est Cr Clr Drug Dosing 34.6 Est GFR ( Amer) 48.1 Est GFR (Non-Af Amer) 41.5 BUN/Creatinine Ratio 9.4 L Glucose 126 H POC Glucose 127 H Calcium 9.3 09/28/18 11:19 WBC RBC Hgb Hct MCV MCH MCHC RDW Std Deviation RDW Coeff of Courtney Plt Count MPV PT INR Sodium Potassium Chloride Carbon Dioxide Anion Gap BUN Creatinine Est Cr Clr Drug Dosing Est GFR ( Amer) Est GFR (Non-Af Amer) BUN/Creatinine Ratio Glucose POC Glucose 139 H Calcium Medications Administered Current Inpatient Medications Acetaminophen (Tylenol) 1,000 mg PO Q8 PRN PRN Reason: pain/fever Stop: 10/23/18 13:59 Last Admin: 09/26/18 18:23 Dose: 1,000 mg Documented by: Amitriptyline HCl (Elavil) 25 mg PO QID PRISCILA Stop: 10/23/18 16:59 Last Admin: 09/28/18 08:42 Dose: 25 mg Documented by: Bisacodyl (Dulcolax) 10 mg MT DAILY PRN PRN Reason: Constipation Stop: 10/23/18 11:05 Dextrose (Dextrose 50%) 25 - 50 ml IV UD PRN; Protocol PRN Reason: Hypoglycemia Protocol Stop: 10/23/18 14:21 Diphenhydramine HCl (Benadryl Capsule) 25 mg PO Q8H PRN PRN Reason: Itching Stop: 10/23/18 11:05 Docusate Sodium (Colace) 100 mg PO BID [facility] Stop: 10/23/18 20:59 Last Admin: 09/28/18 08:42 Dose: 100 mg Documented by: Folic Acid (Folvite) 1 mg PO QAM [facility] Stop: 10/23/18 11:05 Last Admin: 09/28/18 08:41 Dose: 1 mg Documented by: Furosemide (Lasix) 20 mg PO QAM [facility] Stop: 10/27/18 08:59 Last Admin: 09/28/18 08:42 Dose: 20 mg Documented by: Glucagon (Glucagen) 1 mg SQ UD PRN; Protocol PRN Reason: Hypoglycemia Protocol Stop: 10/23/18 14:21 Glucose (Glucose 40%) 15 - 30 gm PO UD PRN; Protocol PRN Reason: Hypoglycemia Protocol Stop: 10/23/18 14:21 Glucose (Dex4 Glucose) 4 - 8 tabs PO UD PRN; Protocol PRN Reason: Hypoglycemia Protocol Stop: 10/23/18 14:21 Hydromorphone HCl (Dilaudid) 0.5 mg IV Q4H PRN PRN Reason: Pain Stop: 10/07/18 11:05 Last Admin: 09/28/18 08:48 Dose: 0.5 mg Documented by: Sodium Chloride (Nss) 250 mls @ 15 mls/hr IV .[id number] PRN PRN Reason: For Transfusion Stop: 10/26/18 12:48 Sodium Chloride (Nss) 250 mls @ 15 mls/hr IV .[id number] PRN PRN Reason: For Transfusion Stop: 10/26/18 23:17 Insulin Aspart (Novolog Flexpen) 0 units SC ACHS [facility] Stop: 10/23/18 20:59 Last Admin: 09/28/18 08:40 Dose: 5 units Documented by: Levothyroxine Sodium (Synthroid) 100 mcg PO DAILYBB [facility] Stop: 10/23/18 11:59 Last Admin: 09/28/18 05:43 Dose: 100 mcg Documented by: Magnesium Hydroxide (Milk Of Magnesia) 30 ml PO Q6H PRN PRN Reason: Constipation Stop: 10/23/18 11:05 Last Admin: 09/26/18 09:08 Dose: 30 ml Documented by: Metoclopramide HCl (Reglan) 10 mg IV Q6H PRN PRN Reason: Nausea And Vomiting Stop: 10/23/18 11:05 Last Admin: 09/27/18 16:29 Dose: 10 mg Documented by: Metoprolol Tartrate (Lopressor) 5 mg IV Q6 PRN PRN Reason: HR> 100 Stop: 10/26/18 17:59 Last Admin: 09/27/18 09:03 Dose: 5 mg Documented by: Metoprolol Tartrate (Lopressor) 25 mg PO BID [facility] Stop: 10/27/18 08:59 Last Admin: 09/28/18 08:42 Dose: 25 mg Documented by: Miscellaneous (Carbohydrates For Hypoglycemia) 15 - 30 gm PO UD PRN PRN Reason: Hypoglycemia Treatment Stop: 10/23/18 14:21 Multivitamins (Multivitamin Tab) 1 tab PO QAM [facility] Stop: 10/24/18 08:59 Last Admin: 09/28/18 08:41 Dose: 1 tab Documented by: Naloxone HCl (Narcan) 0.1 mg IV Q5M PRN PRN Reason: Oversedation/Resp Depression Stop: 10/23/18 11:05 Ondansetron HCl (Zofran) 4 mg IV Q6H PRN PRN Reason: Nausea And Vomiting Stop: 10/23/18 11:05 Oxycodone HCl (Roxicodone Immediate Rel) 5 - 10 mg PO Q4H PRN PRN Reason: Pain Stop: 10/07/18 11:05 Last Admin: 09/28/18 04:24 Dose: 10 mg Documented by: Pantoprazole Sodium (Protonix) 40 mg PO HS [facility] Stop: 10/23/18 20:59 Last Admin: 09/27/18 20:42 Dose: 40 mg Documented by: Potassium Chloride (Klor-Con M10) 10 meq PO DAILY [facility] Stop: 10/24/18 08:59 Last Admin: 09/28/18 08:41 Dose: 10 meq Documented by: Ropinirole HCl (Requip) 2 mg PO TID [facility] Stop: 10/23/18 13:59 Last Admin: 09/28/18 08:43 Dose: 2 mg Documented by: Rosuvastatin Calcium (Crestor) 10 mg PO QPM [facility] Stop: 10/23/18 20:59 Last Admin: 09/27/18 20:40 Dose: 10 mg Documented by: Sennosides (Senokot) 17.2 mg PO HS [facility] Stop: 10/23/18 20:59 Last Admin: 09/27/18 20:41 Dose: 17.2 mg Documented by: Thiamine HCl (Vitamin B-1) 50 mg PO QAM [facility] Stop: 10/23/18 11:05 Last Admin: 09/28/18 08:42 Dose: 50 mg Documented by: Warfarin Sodium (Coumadin) 5 mg PO DAILY@1600 [facility] Stop: 10/23/18 15:59 Last Admin: 09/27/18 15:52 Dose: 5 mg Documented by: (1) Diabetes type 2, controlled Diabetes mellitus detention insulin use: without detention use Diabetes mellitus complication status: without complication Qualified Code(s): E11.9 - Type 2 diabetes mellitus without complications (2) Atrial fibrillation Atrial fibrillation type: unspecified Qualified Code(s): I48.91 - Unspecified atrial fibrillation
[2018-09-28] MEDS: METOCLOPRAMIDE HCL INJ 5 MG/ML 2 ML VIAL IV PRN (13:25)
[2018-09-28] MEDS: ACETAMINOPHEN 500 MG TAB PO PRN (14:47)
--- NOTE | 2018-09-28 15:30 | Hospitalist Progress Note ---
Date of Service September 28, 2018 Assessment & Plan (1) Pain, joint, knee, left: Marked swelling, increased pain tenderness warmth noted on left knee joint Possible concern for joint knee hematoma Ordered for CT of knee and left lower extremity Orthopedics asked to reevaluate (2) S/P TKR (total knee replacement): Postop complication with ongoing acute blood loss anemia requiring 4 units of blood transfusion Now increased swelling pain tenderness ecchymosis and on the left knee joint extending to hold left lower extremity concern for possible hematoma versus active bleeding inside the knee joint CT of left lower extremity ordered, Coumadin has been kept on hold, subcu Lovenox and Plavix been DC'd since yesterday INR 3.9 today Will await orthopedic recommendation for further management Continue pain control Concern for possible cellulitis, with ongoing bleeding/hematoma Patient started on empiric antibiotic with IV vancomycin and Zosyn (3) Degenerative joint disease of left knee: - POD#[address] Cormier -Postoperative course complicated by rapid A. fib RVR, acute blood loss anemia, with ongoing bleeding at the surgical site Patient is on multiple anticoagulation: Plavix, Coumadin and Lovenox bridge for mechanical mitral valve Plavix kept on hold/Lovenox bridge discontinued Coumadin kept on hold INR 3.9 today-at goal We will continue to monitor H&H, and transfuse as needed to keep hemoglobin around 10 Possible knee joint hematoma noted, as outlined above (4) A-fib: - history of chronic a. fib -Developed A. fib with RVR post op - likely due to acute blood loss anemia - cont to correct anemia to keep hb 10 -Lovenox bridge discontinued, patient is continued with Coumadin, INR 3.3 today Hold Plavix on metoprolol for rate control Dose increased to 12.5 mg twice daily Appreciate input from cardiology Recommend to correct anemia, need to address left knee hematoma, Continue to monitor and telemetry (5) H/O mitral valve replacement with mechanical valve: INR 3.9 today, Coumadin kept on hold Lovenox discontinued For IV vitamin K discussed with cardiology given large left knee hematoma noted in CT imaging (6) HTN (hypertension): -Continue metoprolol (7) Diabetes: -hgb a1c 5.8 08/2018 -diet controlled at home -Novolog per protocol while hospitalized (8) Acute blood loss as cause of postoperative anemia: -Continue to have bleeding at surgical site due to multiple anticoagulation on board Plavix, Lovenox subcu discontinued Received total 4 units of PRBC transfusion (9) Coronary artery disease: - stable, no reports of chest pain/shortness of breath or angina symptom - continue beta marjorie, statin, -Lasix kept on hold for ongoing postop bleeding complication (10) CKD (chronic kidney disease), stage III: - baseline creat runs in the mid 1's - continue to monitor, avoid nephrotoxic agents when able (11) Hypothyroidism: - Continue levothyroxine (12) GERD (gastroesophageal reflux disease): - continue PPI (13) DVT prophylaxis: - Coumadin on hold for hematoma elevated INR (14) Leg edema: Subjective Complaints of worsening swelling, pain on left knee surgical site,Noted to have significant ecchymosis/bruising extending from upper thigh to ankle, with marked ankle and left foot swelling Active bleeding or bruising noted on left TKA site, Marked surrounding erythema, swelling noted Joint is very painful Increased warmth noted all true left lower extremity More pronounced around left knee joint surgical site Physical Exam Constitutional: WD/WN, vitals as above no acute distress Eyes: PERRL, conjunctivae normal, anicteric sclerae ENMT: external ear and nose normal, oropharynx normal Neck: trachea midline, no thyromegaly Respiratory: normal respiratory effort, lungs clear to auscultation Cardiovascular: Rate/Rhythm: regular rate and + irregularly irregular; + abnormal rhythm Heart Sounds: + click (Metallic valve click noted) Vessels: normal peripheral pulses Gastrointestinal (Abdomen): normal bowel sounds, soft, nontender, no hepatosplenomegaly Musculoskeletal: Extremities: extremities normal to inspection (Bruise and ecchymosis extending left lower leg with marked swelling, edema), + limited ROM of extremities (Left lower extremity for severe pain), + joint enlargement (Large amount of swelling, ecchymosis, surrounding left knee joint, with ext), + lower leg abnormality (Swelling pain and ecchymosis) Left and + foot abnormality (Left foot swelling, increased pain) Left Knee: + knee abnormal to inspection (Marked swelling ecchymosis pain increased tenderness on left knee), + effusion (left knee joint swelling suggestive for effusion), + skin erythema (Left Lower extremity), + ecchymosis (Left lower extremity), + surgical incision (Left knee joint TKA, significant bruising ecchymosis, with clotted blood no), + limited ROM of knee (On left knee joint secondary to significant) and + joint line tenderness (On left) Ankle: + ankle abnormal to inspection (Swelling and erythema on left ankle), + effusion (3+ edema on left ankle), + skin erythema (On left ankle) and + ecchymosis (Left ankle) Skin: no rashes, warm and dry Neurologic: PERRL, EOMI, accommodation nl, no face palsy, no dysarthria Psychiatric: A+Ox3, euthymic affect Orientation: alert and oriented x 3 Results & Data Vital Signs (Past 12 Hours) Vital Signs Temp Pulse Pulse Resp BP Pulse Ox 09/28/18 14:49 38.4 C H 105 H 16 122/65 93 09/28/18 11:28 37.1 C 70 16 137/72 99 09/28/18 08:00 93 H 09/28/18 07:02 36.4 C L 92 H 16 149/70 H 93 09/28/18 03:56 36.9 C 109 H 21 127/65 97 (1) Diabetes Diabetes mellitus complication status: without complication 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 transplanted heart: [place] heart Qualified Code(s): I25.10 - Atherosclerotic heart disease of [place] coronary artery without angina pectoris (3) A-fib Atrial fibrillation type: chronic Qualified Code(s): I48.2 - Chronic atrial fibrillation (4) Hypothyroidism Hypothyroidism type: postablative Qualified Code(s): E89.0 - Postprocedural hypothyroidism (5) Degenerative joint disease of left knee Osteoarthritis type: unspecified Qualified Code(s): M17.12 - Unilateral primary osteoarthritis, left knee (6) GERD (gastroesophageal reflux disease) Esophagitis presence: without esophagitis Qualified Code(s): K21.9 - Gastro- esophageal reflux disease without esophagitis (7) HTN (hypertension) Hypertension type: unspecified Qualified Code(s): I10 - Essential (primary) hypertension
--- NOTE | 2018-09-28 16:22 | CT Scan Report ---
CT knee LT wo con CLINICAL HISTORY: 63 years-old Female presenting with left knee swelling /eval for hematoma. TECHNIQUE: Multidetector CT of the left knee was performed without the use of intravenous contrast. I V contrast: None. One or more dose lowering techniques were used consistent with the principles of AL MALLY (as low as reasonably achievable), including automatic exposure control, mA or kV adjustment to i ndividual patient size, and/or use of iterative reconstruction. COMPARISON: Plain radiographs from 09/23/2018. CT DOSE (mGy.cm): The estimated cumulative dose is 317.4 to. FINDINGS: Manager Game topogram: Total left knee arthroplasty with patellar resurfacing. Total left knee arthroplasty with patellar resurfacing. No periprosthetic fracture or malalignment. N o periprosthetic lucency. No change in appearance of the arthroplasty since the prior radiograph. Large high density joint effusion compatible with hemarthrosis. There is also distention of the infra patellar superficial bursa. Surrounding fat infiltration in the knee associated with the surgical inc ision site. Hardware results in artifact mildly degrades evaluation of the knee. Musculature is gross ly normal. Nonspecific edema also noted elsewhere with superficial varicosities. IMPRESSION: 1. Hemarthrosis. 2. Superficial infrapatellar bursitis versus fluid in the incision site. 3. Expected postsurgical appearance of the total left knee arthroplasty with patellar resurfacing. N o malalignment. Electronically signed by: Kristian Weir M.D. 09/28/2018 4:20 PM
--- NOTE | 2018-09-28 16:25 | CT Scan Report ---
CT tib/fib LT wo con CLINICAL HISTORY: 63 years-old Female presenting with swelling/eval for hematoma. TECHNIQUE: Multidetector CT of the left lower leg was performed without the use of intravenous contra st. IV contrast: None. One or more dose lowering techniques were used consistent with the principles of ALARA (as low as reasonably achievable), including automatic exposure control, mA or kV adjustment to individual patient size, and/or use of iterative reconstruction. COMPARISON: Plain radiographs from 09/23/2018 of the left knee. CT DOSE (mGy.cm): The estimated cumulative dose is 317.42 mGy.cm. 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 Large hypodensity knee joint effusion likely indicates hemarthrosis. Hardware arising from the arthro plasty mildly limits evaluation regionally. The total left knee arthroplasty with patellar resurfacin g demonstrates no malalignment or periprosthetic fracture or lucency. Musculature of the lower leg is normal. No intramuscular hematoma. Diffuse nonspecific subcutaneous e yoav in the lower leg. This is most severe at the ankle and proximal foot included within the field-o f-view. No osseous abnormality of the lower leg. Ankle mortise is congruent. Grossly normal noncontra st appearance of the vasculature. Patency cannot be assessed. IMPRESSION: 1. Nonspecific diffuse subcutaneous edema in the lower leg most severe at the ankle. 2. Post surgical changes of total left knee arthroplasty with patellar resurfacing. No hardware comp lication. 3. High density knee joint effusion indicates hemarthrosis. Please see separately dictated CT knee. Electronically signed by: Kristian Weir M.D. 09/28/2018 4:24 PM
[2018-09-28] MEDS ORDERED: PHYTONADIONE 5 MG in SODIUM CHLORIDE 0.9% 50 ML IV STA (17:29)
--- NOTE | 2018-09-28 17:35 | Hospitalist Progress Note ---
Date of Service September 28, 2018 Subjective Attending addendum: PATIENT'S LEFT KNEE AND LEFT LOWER EXTREMITY CAT SCAN REPORT REVIEWED: 1. Shows large area of high density joint effusion compatible with hemarthrosis: Sign there is also distention of the infrapatellar superficial bursa 2. Nonspecific diffuse subcutaneous edema in lower leg most severe at the ankle Paged on-call orthopedics: Dr. Scott Spoke with cardiology Dr. Spivey, updated regarding CT knee finding Recommends patient should be given 5 mg of IV vitamin K stat, INR 3.9 today Given mechanical mitral valve-patient is requiring higher level of therapeutic anticoagulation with goal INR between 2.53.5 Patient can be given FFP during or after procedure if needed to reduce bleeding complication Patient is ordered for n.p.o. past midnight in case patient needs orthopedic intervention to evacuate large hematoma Cristin Mcguire MD Results & Data Vital Signs (Past 12 Hours) Vital Signs Temp Pulse Pulse Resp BP Pulse Ox 09/28/18 16:00 102 H 09/28/18 14:49 38.4 C H 105 H 16 122/65 93 09/28/18 11:28 37.1 C 70 16 137/72 99 09/28/18 08:00 93 H 09/28/18 07:02 36.4 C L 92 H 16 149/70 H 93
[2018-09-28] MEDS ORDERED: VANCOMYCIN CONSULT ACTIVE PRN (18:10)
[2018-09-28] MEDS ORDERED: PIPERACILL/TAZOBAC CONSULT ACTIVE PRN (18:10)
[2018-09-28] MEDS ORDERED: VANCOMYCIN HCL 1,000 MG in SODIUM CHLORIDE 0.9% 250 ML IV SCH (18:15)
[2018-09-28] MEDS ORDERED: PIPERACILLIN/TAZOBACTAM 3.375 GM in DEXTROSE 5% 100 ML IV ONE (19:00)
[2018-09-28] MEDS: VANCOMYCIN HCL 1,000 MG in SODIUM CHLORIDE 0.9% 250 ML IV SCH (19:54)
--- NOTE | 2018-09-28 19:54 | Consultation Report ---
DATE OF CONSULTATION: 09/28/2018 HISTORY OF PRESENT ILLNESS: This is a 63-year-old female seen at the request of Dr. Spivey and Dr. Cristin Mcguire for severe hemarthrosis in the left knee, left knee status post total knee arthroplasty and left knee pain related to previous surgery and anticoagulation. The patient had a total knee arthroplasty performed by Dr. Cormier on 09/23/2018. She had an uneventful total knee arthroplasty with 50 mL of blood loss and 1 liter of lactated Ringer's. Unfortunately, however, the patient then developed some cardiac issues and was then held in the hospital over several days. Then noted increasing hemarthrosis of the left knee with decreasing hemoglobin. Hemoglobin then dropped to 7.3 and was given 4 units of packed cells. Complaining of worsening left knee pain, swelling and ecchymosis. A request was made to consult regarding the patient's care. She was initially planned on being discharged home; however, now a reconsultation is requested. PAST MEDICAL HISTORY: Anemia, AFib, anxiety, CKD stage III, diabetes, GERD radioactive iodine thyroid ablation, hypertension, blood transfusions, myocardial infarction in 2000, hyperlipidemia, hypothyroidism, migraines, mitral valve disease, osteoarthritis, restless legs syndrome, and TIA. PAST SURGICAL HISTORY: Left total knee arthroplasty on 09/23/[address] Cormier, hysterectomy, colonoscopy, T and A, appendectomy, cholecystectomy, mitral valve replacement, tubal ligation. ALLERGIES: PROCHLORPERAZINE, PROMETHAZINE, PERRY INHIBITORS, HYDROXYZINE, LISINOPRIL, METFORMIN, TETRACYCLINE AND PARSLEY. HOME MEDICATIONS: Please note the extensive list present in the medical record. SOCIAL HISTORY: She lives with her mother. Denies tobacco or drug use. She drinks wine occasionally. 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 PHYSICAL EXAMINATION: This pleasant 63-year-old female is sitting supine in her hospital room bed with the nurse present. The patient is awake, alert and oriented x3. Speech clear and fluent. Affect is appropriate. Somewhat anxious. Examination of the left knee demonstrates well-coapted left anterior midline total knee incision. Significant ecchymosis and edema is noted. Significant effusion and hemarthrosis is appreciated. She has limited range of motion of the knee due to pain and swelling of the knee. The left lower extremity has significant edema grade 3/4 on the left compared to 1+/4 on the right. The knee is tender to palpation. There is a fullness with palpation around the knee joint. Fusiform edema is noted in the left leg. There is no pain with passive stretch of the left lower extremity. There is no particular pain with palpation of the left calf or calf musculature. Moderate increased warmth in the left knee and the periarticular tissues due to swelling and hemarthrosis. CT scan demonstrates large hemarthrosis of left knee with well-aligned total knee arthroplasty components. Laboratories are reviewed. IMPRESSION: Postoperative hemarthrosis, left knee complicated by an INR of 3.9. Acute blood loss anemia secondary to surgery, status post left total knee arthroplasty, left knee pain, limited range of motion due to the above. RECOMMENDATIONS: We will contact Dr. Cormier regarding plans for possible repeat irrigation and debridement and possible polyethylene exchange as necessary. Make n.p.o. this evening for possible surgery tomorrow. Limited weightbearing and limited flexion of the lower extremity. Thank you for the opportunity to consult in the care of this patient.
--- NOTE | 2018-09-28 19:56 | Pharmacy Report ---
Pharmacy Abx Dose Progress Nt - Date of Service September 28, 2018 - Pharmacy Dosing Scope The patient is currently receiving the following antimicrobial agents per Pharmacy consult: Vancomycin 1000 mg IV every 24 hours and Zosyn 3.375gm extended infusion q8 hrs for bone/joint infection. - Objective Vital Signs (Past 12hrs): Vital Signs Temp Pulse Pulse Resp BP BP Pulse Ox 09/28/18 18:34 37.7 C H 120 H 16 121/65 97 09/28/18 18:02 36.9 C 108 H 16 123/65 96 09/28/18 16:00 102 H 09/28/18 14:49 38.4 C H 105 H 16 122/65 93 09/28/18 11:28 37.1 C 70 16 137/72 99 09/28/18 08:00 93 H Lab Results (24hrs): Laboratory Tests (24 Hours) 09/28/18 09/28/18 07:13 07:13 WBC 10.47 Creatinine 1.34 H Est Cr Clr Drug Dosing 34.6 Micro Results: 09/08/18 Unknown Urine Culture - Final Urine,Clean Catch Three types of organisms present, all low counts probable skin demarcus. No further identifications or sensitivities to follow. - Risk Factors for Resistance * * - Assessment & Plan Assessment 63 year old F receiving vancomycin and Zosyn for treatment of bone/joint infection Day # 3 of antimicrobial therapy Plan Vancomycin IV * Vancomycin initially was ordered 09/26 and pt received a 1500mg load (25mg/kg), then 1000mg q 24h. She received a dose at 1400 on 09/27, then vancomycin and Zosyn were dc'd. This evening, they are reordered and vanco 1000mg is scheduled for 1999. * Continue dose of 1000 mg IV every 24 hours * Goal trough level for bone/joint infection : 17 to 20 mcg/mL * Trough level ordered for: 09/30 prior to 1999 dose Piperacillin/tazobactam * Continue 3.375 g IV extended infusion every 8 hours for CrCl greater than 20 mL/min. Pharmacy will continue to follow and will adjust dose/frequency as necessary. Thank you.
[2018-09-28] MEDS: SENNA 8.6 MG TAB PO SCH (20:02)
[2018-09-28] MEDS: PANTOprazole 40 MG TAB PO SCH (20:03)
[2018-09-28] MEDS: ROSUVASTATIN CALCIUM 10 MG TAB PO SCH (20:04)
[2018-09-29] MEDS: PIPERACILLIN/TAZOBACTAM 3.375 GM in DEXTROSE 5% 100 ML IV SCH ×3 (00:45→16:14)
[2018-09-29] MEDS: HYDROmorphone INJ 0.5 MG/0.5 ML SYR IV PRN ×2 (04:26→16:12)
[2018-09-29] MEDS: LEVOTHYROXINE SODIUM 100 MCG TABLET PO SCH (06:08)
[2018-09-29 07:44] LABS: Hematocrit (blood only) 28.6 % (37-47); Hemoglobin 9.3 g/dL (12.0-16.0); Mean Corpuscular Hgb Conc 32.5 g/dL (32-36); Mean Corpuscular Volume 89.1 fL (80-100); Platelet Count 171 K/uL (130-400); RDW Coefficient of Variation 15.4 % (11.5-14.5); RDW Standard Deviation 49.7 fL (36.4-46.3); Red Blood Count 3.21 M/uL (4.2-5.4); White Blood Count 10.85 K/uL (4.8-10.8)
[2018-09-29 07:56] LABS: INR 1.1 (0.9-1.1); Prothrombin Time 11.6 Seconds (9.0-12.0)
[2018-09-29 08:18] LABS: BUN Creatinine Ratio 10.3 (10-20); Calcium 9.3 mg/dl (8.5-10.1); Creatinine Clr Calc Pharmacy 35.4 ml/min; Est GFR (African American) 49.4; Est GFR (Non-African American) 42.6; Potassium 3.3 mmol/L (3.5-5.1)
[2018-09-29] MEDS: METOPROLOL TARTRATE 25 MG TAB PO SCH ×2 (08:42→20:38)
[2018-09-29] MEDS: INSULIN ASPART 100 UNITS/ML 3 ML PEN SC SCH ×4 (08:42→20:44)
[2018-09-29] MEDS: FUROSEMIDE 20 MG TAB PO SCH (08:43)
[2018-09-29] MEDS: ROPINIROLE HCL 1 MG TABLET PO SCH ×3 (08:43→20:37)
[2018-09-29] MEDS: THIAMINE HCL 50 MG TABLET PO SCH (08:43)
[2018-09-29] MEDS: POTASSIUM CHLORIDE 10 MEQ TABCR PO SCH (08:43)
[2018-09-29] MEDS: AMITRIPTYLINE HCL 25 MG TAB PO SCH ×4 (08:43→20:38)
[2018-09-29] MEDS: DOCUSATE SODIUM 100 MG CAP PO SCH ×2 (08:43→20:38)
[2018-09-29] MEDS: FOLIC ACID 1 MG TAB PO SCH (08:43)
[2018-09-29] MEDS: MULTIVITAMIN TAB PO SCH (08:47)
[2018-09-29] MEDS: MoRPHine SULFATE CR 15 MG TABCR PO SCH ×2 (08:47→20:42)
--- NOTE | 2018-09-29 09:03 | Orthopedic Progress Note ---
Date of Service September 29, 2018 Assessment & Plan (1) Degenerative joint disease of left knee: s/p L TKA POD#6 -ancef x 24 -DVT ppx: SCDs, TEDs, Coumadin per medical team, goal INR 2.5-3.5. -WBAT LLE -PT/OT -XR L knee demonstrates a well aligned well fixed prosthesis without fracture/dislocation -am labs hgb 9.3, Cr 1.31, INR 1.1 -Medical hospitalist consult recs appreciated -DC planning -Left knee hemarthrosis, incision is clean dry and intact at this time. Large hemarthrosis, supportive care, tight control of INR important, 3.9 yesterday, will continue to monitor closely, given patient's significant history for A. fib, mechanical valve and stroke on a significant amount of blood thinners and subsequently the patient developed hemarthrosis the left knee. We had discussed this would be a likely possibility/risk prior to surgery. Will adjust pain medications at this time. Advised her no extreme flexion of the knee max of 80 degrees for right now. Will consider aspiration versus I&D if hemarthrosis/symptoms progress/worsen. POD#2 -ancef x 24 -DVT ppx: SCDs, TEDs, restart patients home DVT meds, lovenox--> coumadin, follows coumadin clinic, plavix -WBAT LLE -PT/OT -HMV drain DC'd -XR L knee demonstrates a well aligned well fixed prosthesis without fra cture/dislocation -am labs hgb 9.3, s/p 2 units PRBC, INR 1.6, Cr 1.51, at baseline -Medical hospitalist consult recs appreciated -DC planning - home with HH s/p L TKA POD#1 -ancef x 24 -DVT ppx: SCDs, TEDs, restart patients home DVT meds, lovenox--> coumadin, follows coumadin clinic, plavix -WBAT LLE -PT/OT -monitor drain output 50/564 -XR L knee demonstrates a well aligned well fixed prosthesis without fracture/dislocation -am labs hgb 7.3, acute post operative anemia secondary to richar-operative blood loss and dilusional effect. 2 units PRBC being tranfused today. -Medical hospitalist consult recs appreciated -DC planning - home with HH Subjective Post Operative Progress Note Patient seen sitting up in bed, complaining of pain to the left knee, denies complaints, no acute issues overnight. Patient has been ambulating to bathroom with assistance. Does note increased stiffness to the left knee. Review of Systems Review of Systems: All systems reviewed & are unremarkable except as noted in HPI & below Constitutional: as per Subjective / HPI Physical Exam Physical Exam: LLE NVSI +EHL/FHL/TA/GS SILT grossly, +2 DP pulse, compartments soft NT, dressing cdi. + Ecchymoses, large effusion/hemarthrosis. Scant drainage from Hemovac site. Constitutional: WD/WN, vitals as above Results & Data Vital Signs (Past 12 Hours) Vital Signs Temp Pulse Pulse Resp BP BP Pulse Ox 09/29/18 07:31 36.7 C 115 H 18 142/62 H 98 09/29/18 04:01 36.8 C 106 H 20 121/72 97 09/28/18 23:59 88 09/28/18 23:10 37.1 C 86 16 110/68 92 (1) Degenerative joint disease of left knee Osteoarthritis type: unspecified Qualified Code(s): M17.12 - Unilateral primary osteoarthritis, left knee
[2018-09-29] MEDS ORDERED: POTASSIUM CHLORIDE 20 MEQ TABCR PO ONE (09:45)
--- NOTE | 2018-09-29 09:49 | Cardiology Progress Note ---
Date of Service September 29, 2018 Assessment & Plan (1) S/P TKR (total knee replacement): (2) Acute blood loss as cause of postoperative anemia: (3) H/O mitral valve replacement with mechanical valve: (4) Rheumatic disease of heart valve: (5) Diabetes type 2, controlled: (6) History of CVA (cerebrovascular accident): (7) Atrial fibrillation: Orthopedic notes appreciated. The patient had an INR 1.1 today. Believe her bleeding has stopped. The patient is at high risk for thrombotic events from the mitral mechanical valve and atrial fibrillation. We have to weigh this against postoperative bleeding and hematoma which has resulted over the past several days. She received 5 mg of vitamin K IV yesterday. It will take several days for her INR to become therapeutic if we restart her Warfarin today, So I am going to resume the warfarin with this afternoon's dose. Depending on t he clinical course we may start her on IV heparin as a bridge until her INR becomes therapeutic. I would hold off on the heparin at present. Subjective Orthopedic notes appreciated. The patient is currently clinically stable. Review of Systems Review of Systems: All systems reviewed & are unremarkable except as noted in HPI & below Nothing additional to add. Physical Exam Physical Exam: General: no acute distress and stated age Head: normocephalic, no masses, lesions, tenderness or abnormalities Eyes: conjunctiva are pink and non-injected, sclera clear Neck: supple, no adenopathy, no bruits, normal jugular venous pulse, no hepatojugular reflux Chest: normal shape and normal respiratory effort Lungs: clear to auscultation and percussion Cardiac Exam: - irregular rate & rhythm, no murmurs gallops or rubs - normal S1, normal S2 Pulses: 2(+) throughout Abdomen: abdomen soft, non-tender, no abnormal masses and no hepatosplenomegaly Musculoskeletal: no gait disturbance, no joint inflammation, no deforming arthritis Extremities: Left lower extremity post TKR with ecchymosis and swelling. Neuro: grossly normal exam Results & Data Vital Signs (Past 12 Hours) Vital Signs Temp Pulse Pulse Resp BP BP Pulse Ox 09/29/18 07:31 36.7 C 115 H 18 142/62 H 98 09/29/18 04:01 36.8 C 106 H 20 121/72 97 09/28/18 23:59 88 09/28/18 23:10 37.1 C 86 16 110/68 92 Laboratory Results Laboratory Results - last 24 hr 09/28/18 09/28/18 09/28/18 11:19 16:27 20:21 WBC RBC Hgb Hct MCV MCH MCHC RDW Std Deviation RDW Coeff of Courtney Plt Count MPV PT INR Sodium Potassium Chloride Carbon Dioxide Anion Gap BUN Creatinine Est Cr Clr Drug Dosing Est GFR ( Amer) Est GFR (Non-Af Amer) BUN/Creatinine Ratio Glucose POC Glucose 139 H 154 H 222 H Calcium 09/29/18 09/29/18 09/29/18 07:17 07:17 07:17 WBC 10.85 H RBC 3.21 L Hgb 9.3 L Hct 28.6 L MCV 89.1 MCH 29.0 MCHC 32.5 RDW Std Deviation 49.7 H RDW Coeff of Courtney 15.4 H Plt Count 171 MPV 10.0 PT 11.6 INR 1.1 Sodium 137 Potassium 3.3 L D Chloride 101 Carbon Dioxide 29 Anion Gap 7.0 BUN 14 Creatinine 1.31 H Est Cr Clr Drug Dosing 35.4 Est GFR ( Amer) 49.4 Est GFR (Non-Af Amer) 42.6 BUN/Creatinine Ratio 10.3 Glucose 113 H POC Glucose Calcium 9.3 09/29/18 07:43 WBC RBC Hgb Hct MCV MCH MCHC RDW Std Deviation RDW Coeff of Courtney Plt Count MPV PT INR Sodium Potassium Chloride Carbon Dioxide Anion Gap BUN Creatinine Est Cr Clr Drug Dosing Est GFR ( Amer) Est GFR (Non-Af Amer) BUN/Creatinine Ratio Glucose POC Glucose 108 H Calcium Medications Administered Current Inpatient Medications Acetaminophen (Tylenol) 1,000 mg PO Q8 PRN PRN Reason: pain/fever Stop: 10/23/18 13:59 Last Admin: 09/28/18 14:47 Dose: 1,000 mg Documented by: Amitriptyline HCl (Elavil) 25 mg PO QID PRISCILA Stop: 10/23/18 16:59 Last Admin: 09/29/18 08:43 Dose: 25 mg Documented by: Bisacodyl (Dulcolax) 10 mg TN DAILY PRN PRN Reason: Constipation Stop: 10/23/18 11:05 Dextrose (Dextrose 50%) 25 - 50 ml IV UD PRN; Protocol PRN Reason: Hypoglycemia Protocol Stop: 10/23/18 14:21 Diphenhydramine HCl (Benadryl Capsule) 25 mg PO Q8H PRN PRN Reason: Itching Stop: 10/23/18 11:05 Docusate Sodium (Colace) 100 mg PO BID [facility] Stop: 10/23/18 20:59 Last Admin: 09/29/18 08:43 Dose: 100 mg Documented by: Folic Acid (Folvite) 1 mg PO QAM [facility] Stop: 10/23/18 11:05 Last Admin: 09/29/18 08:43 Dose: 1 mg Documented by: Furosemide (Lasix) 20 mg PO QAM PRISCIL[facility] Stop: 10/27/18 08:59 Last Admin: 09/29/18 08:43 Dose: 20 mg Documented by: Glucagon (Glucagen) 1 mg SQ UD PRN; Protocol PRN Reason: Hypoglycemia Protocol Stop: 10/23/18 14:21 Glucose (Glucose 40%) 15 - 30 gm PO UD PRN; Protocol PRN Reason: Hypoglycemia Protocol Stop: 10/23/18 14:21 Glucose (Dex4 Glucose) 4 - 8 tabs PO UD PRN; Protocol PRN Reason: Hypoglycemia Protocol Stop: 10/23/18 14:21 Hydromorphone HCl (Dilaudid) 0.5 mg IV Q4H PRN PRN Reason: Pain Stop: 10/07/18 11:05 Last Admin: 09/29/18 04:26 Dose: 0.5 mg Documented by: Sodium Chloride (Nss) 250 mls @ 15 mls/hr IV .[id number] PRN PRN Reason: For Transfusion Stop: 10/26/18 12:48 Sodium Chloride (Nss) 250 mls @ 15 mls/hr IV .[id number] PRN PRN Reason: For Transfusion Stop: 10/26/18 23:17 Piperacillin Sod/Tazobactam (Sod 3.375 gm/ Dextrose) 115 mls @ 28.75 mls/hr IV Q8H PRISCILA; Protocol Stop: 11/10/18 00:00 Last Admin: 09/29/18 08:47 Dose: 28.8 mls/hr Documented by: Vancomycin HCl 1,000 mg/ (Sodium Chloride) 270 mls @ 125 mls/hr IV Q24H PRISCILA; Protocol Stop: 11/09/18 19:59 Last Infusion: 09/28/18 23:22 Dose: Infused Documented by: Insulin Aspart (Novolog Flexpen) 0 units SC ACHS [facility] Stop: 10/23/18 20:59 Last Admin: 09/29/18 08:42 Dose: 2 units Documented by: Levothyroxine Sodium (Synthroid) 100 mcg PO DAILYBB [facility] Stop: 10/23/18 11:59 Last Admin: 09/29/18 06:08 Dose: 100 mcg Documented by: Magnesium Hydroxide (Milk Of Magnesia) 30 ml PO Q6H PRN PRN Reason: Constipation Stop: 10/23/18 11:05 Last Admin: 09/26/18 09:08 Dose: 30 ml Documented by: Metoclopramide HCl (Reglan) 10 mg IV Q6H PRN PRN Reason: Nausea And Vomiting Stop: 10/23/18 11:05 Last Admin: 09/28/18 13:25 Dose: 10 mg Documented by: Metoprolol Tartrate (Lopressor) 5 mg IV Q6 PRN PRN Reason: HR> 100 Stop: 10/26/18 17:59 Last Admin: 09/27/18 09:03 Dose: 5 mg Documented by: Metoprolol Tartrate (Lopressor) 25 mg PO BID [facility] Stop: 10/27/18 08:59 Last Admin: 09/29/18 08:42 Dose: 25 mg Documented by: Miscellaneous (Carbohydrates For Hypoglycemia) 15 - 30 gm PO UD PRN PRN Reason: Hypoglycemia Treatment Stop: 10/23/18 14:21 Miscellaneous Information (Consult) 1 ea N/A UD PRN PRN Reason: Consult Stop: 10/28/18 18:09 Miscellaneous Information (Consult) 1 ea N/A UD PRN PRN Reason: Consult Stop: 10/28/18 18:09 Morphine Sulfate (Ms Contin) 15 mg PO Q12H [facility] Stop: 10/13/18 07:59 Last Admin: 09/29/18 08:47 Dose: 15 mg Documented by: Multivitamins (Multivitamin Tab) 1 tab PO QAM [facility] Stop: 10/24/18 08:59 Last Admin: 09/29/18 08:47 Dose: Not Given Documented by: Naloxone HCl (Narcan) 0.1 mg IV Q5M PRN PRN Reason: Oversedation/Resp Depression Stop: 10/23/18 11:05 Ondansetron HCl (Zofran) 4 mg IV Q6H PRN PRN Reason: Nausea And Vomiting Stop: 10/23/18 11:05 Oxycodone HCl (Roxicodone Immediate Rel) 5 - 10 mg PO Q4H PRN PRN Reason: Pain Stop: 10/07/18 11:05 Last Admin: 09/28/18 22:47 Dose: 10 mg Documented by: Pantoprazole Sodium (Protonix) 40 mg PO [facility] Stop: 10/23/18 20:59 Last Admin: 09/28/18 20:03 Dose: 40 mg Documented by: Potassium Chloride (Klor-Con M10) 10 meq PO DAILY [facility] Stop: 10/24/18 08:59 Last Admin: 09/29/18 08:43 Dose: 10 meq Documented by: Potassium Chloride (Klor-Con M20) 20 meq PO ONE ONE Stop: 09/29/18 09:46 Ropinirole HCl (Requip) 2 mg PO TID [facility] Stop: 10/23/18 13:59 Last Admin: 09/29/18 08:43 Dose: 2 mg Documented by: Rosuvastatin Calcium (Crestor) 10 mg PO QPM [facility] Stop: 10/23/18 20:59 Last Admin: 09/28/18 20:04 Dose: 10 mg Documented by: Sennosides (Senokot) 17.2 mg PO HS [facility] Stop: 10/23/18 20:59 Last Admin: 09/28/18 20:02 Dose: Not Given Documented by: Thiamine HCl (Vitamin B-1) 50 mg PO QAM [facility] Stop: 10/23/18 11:05 Last Admin: 09/29/18 08:43 Dose: 50 mg Documented by: Warfarin Sodium (Coumadin) 5 mg PO DAILY@1600 [facility] Stop: 10/23/18 15:59 Last Admin: 09/27/18 15:52 Dose: 5 mg Documented by: (1) Diabetes type 2, controlled Diabetes mellitus terminal carman insulin use: without terminal carman use Diabetes mellitus complication status: without complication Qualified Code(s): E11.9 - Type 2 diabetes mellitus without complications (2) Atrial fibrillation Atrial fibrillation type: unspecified Qualified Code(s): I48.91 - Unspecified atrial fibrillation
[2018-09-29] MEDS ORDERED: HEPARIN SODIUM/DEXTROSE 25,000 UNITS/500 ML BAG IV SCH (10:45)
[2018-09-29] MEDS ORDERED: Heparin IV Low Dose *NO* Bolus IV SCH (10:45)
[2018-09-29] MEDS ORDERED: POTASSIUM CHLORIDE 20 MEQ TABCR PO STA (11:44)
[2018-09-29] MEDS ORDERED: VANCOMYCIN TROUGH ONE (13:30)
--- NOTE | 2018-09-29 15:32 | Hospitalist Progress Note ---
Date of Service September 29, 2018 Assessment & Plan (1) Hemarthrosis involving knee joint: Patient developed worsening of left knee pain swelling yesterday, CT of left knee shows large area of blood collection/hemarthrosis Anatomic alignment of prosthesis Patient was given 5 mg IV vitamin K, INR was 3.9 Orthopedics team asked to reevaluate left knee joint Appreciate input, Present recommend conservative management, with close watch , allow natural resolution/hemolysis of left knee surrounding area blood collection It is high risk to develop septic arthritis, for I&D Also increased risk for recurrent hemarthrosis after the procedure, as patient's anticoagulation could not be interrupted due to presence of mechanical mitral valve Continue pain control: Ordered MS Contin 15 mg twice daily by orthopedics Patient reports improvement of left knee pain Also ordered oxycodone as needed for breakthrough pain Asked to keep limb elevated Continue to monitor and telemetry (2) Pain, joint, knee, left: Due to above marked swelling, increased pain tenderness warmth noted on left knee joint CT of left knee:Large amount of high density joint effusion compatible with hemarthrosis surrounding left prosthetic joint Orthopedics asked to reevaluate Appreciate input, recommend conservative approach with close monitoring for further bleeding complication No plan for incision drainage/operative procedure yet, high risk for infection/sepsis with repeat left knee surgery If patient's left knee joint pain swelling continues to worsen Worsening of hemarthrosis noted Orthopedics will consider washout of knee joint (3) S/P TKR (total knee replacement): Postop complication with ongoing acute blood loss anemia requiring 4 units of blood transfusion Developed large hemarthrosis on left knee joint , subcu Lovenox and Plavix been DC'd IV vitamin K 5 mg given yesterday for INR of 3.9, CT evidence of large left knee hemarthrosis Appreciate orthopedics Concern for possible cellulitis, with ongoing bleeding/hematoma Patient started on empiric antibiotic with IV vancomycin and Zosyn (4) Degenerative joint disease of left knee: - POD#[address] Cormier -Postoperative course complicated by rapid A. fib RVR, acute blood loss anemia, with ongoing bleeding at the surgical site Patient was on multiple anticoagulation: Plavix, Coumadin and Lovenox bridge fo r mechanical mitral valve Plavix kept on hold/Lovenox bridge discontinued Coumadin resumed as INR dropped to 1.1 after vitamin K given yesterday We will continue to monitor H&H, and transfuse as needed to keep hemoglobin around 10 We will hold off IV heparin bridge for now: Discussed with cardiol at Possible knee joint hematoma noted, as outlined above (5) A-fib: - history of chronic a. fib -Developed A. fib with RVR post op - likely due to acute blood loss anemia - cont to correct anemia to keep hb 10 -Lovenox bridge discontinued, Hold Plavix on metoprolol for rate control Dose increased to 12.5 mg twice daily Appreciate input from cardiology Recommend to correct anemia, Coumadin resumed, INR 1.1 after vitamin K given yesterday (6) H/O mitral valve replacement with mechanical valve: high risk for thromboembolic events/stroke, mitral valve thrombosis with subtherapeutic INR Goal INR 2.53.5 Was given vitamin K yesterday, as CT shows large hemarthrosis on left knee, INR was 3.9 INR 1.1 today, Coumadin resumed We will follow very closely, continue Coumadin, dose will be adjusted to keep INR around 3 IV heparin bridge discontinued after cardiology recommendation continue to monitor and telemetry (7) HTN (hypertension): -Continue metoprolol (8) Diabetes: -hgb a1c 5.8 08/2018 -diet controlled at home -Novolog per protocol while hospitalized (9) Acute blood loss as cause of postoperative anemia: -Acute hemarthrosis noted at around left knee joint Patient was on multiple anticoagulation Plavix, Lovenox subcu discontinued Coumadin continued, due to presence of mechanical mitral valve Received total 4 units of PRBC transfusion Hemoglobin 9.3 today continue to monitor closely (10) Coronary artery disease: - stable, no reports of chest pain/shortness of breath or angina symptom - continue beta marjorie, statin, -Plavix kept on hold for ongoing postop bleeding complication (11) CKD (chronic kidney disease), stage III: - baseline creat runs in the mid 1's - continue to monitor, avoid nephrotoxic agents when able (12) Hypothyroidism: - Continue levothyroxine (13) GERD (gastroesophageal reflux disease): - continue PPI (14) DVT prophylaxis: - Coumadin (15) Leg edema: Individual left lower extremity edema noted, Due to inflammation/diffuse ecchymosis from left knee hemarthrosis Continue to monitor Keep limb elevated CODE STATUS: Full code Disposition: Continue monitoring telemetry Given multiple postoperative complication Patient may require rehab after discharge from hospital Discussed with patient regarding options/when patient is medically stable and nearing discharge time Subjective Patient was evaluated by orthopedics this morning, No plan for I&D, or knee joint washout for hemarthrosis: Increased risk of infection/septic joint We will continue to monitor patient cautiously on telemetry She reports of improvement of left knee joint pain, Started on MS Contin 15 mg twice daily No fever or chills Mild if improvement of ecchymosis on left upper thigh and left lower leg There is active bleeding/oozing of blood noted on left lateral prior drain placement area, dressing present She denies of any shortness of breath, chest heaviness or palpitation Remains in A. fib with heart rate variable [id number] Physical Exam Constitutional: WD/WN, vitals as above no acute distress Eyes: PERRL, conjunctivae normal, anicteric sclerae ENMT: external ear and nose normal, oropharynx normal Neck: trachea midline, no thyromegaly Respiratory: normal respiratory effort, lungs clear to auscultation Cardiovascular: Rate/Rhythm: regular rate and + irregularly irregular; + abnormal rhythm Heart Sounds: + click (Metallic valve click noted) Vessels: normal peripheral pulses Gastrointestinal (Abdomen): normal bowel sounds, soft, nontender, no hepatosplenomegaly Musculoskeletal: Extremities: extremities normal to inspection (Bruise and ecchymosis extending left lower leg with marked swelling, edema), + limited ROM of extremities (Left lower extremity for severe pain), + joint enlargement (Large amount of swelling, ecchymosis, surrounding left knee joint, with ext), + lower leg abnormality (Swelling pain and ecchymosis) and + foot abnormality (Left foot swelling, increased pain) Knee: + knee abnormal to inspection (Marked swelling ecchymosis pain increased tenderness on left knee), + effusion (left knee joint swelling suggestive for effusion), + skin erythema (Left Lower extremity), + ecchymosis (Left lower extremity), + surgical incision (Left knee joint TKA, significant bruising ecchymosis, with clotted blood no), + limited ROM of knee (On left knee joint secondary to significant) and + joint line tenderness (On left) Ankle: + ankle abnormal to inspection (Swelling and erythema on left ankle), + effusion (3+ edema on left ankle), + skin erythema (On left ankle) and + ecchymosis (Left ankle) Skin: no rashes, warm and dry Neurologic: PERRL, EOMI, accommodation nl, no face palsy, no dysarthria Psychiatric: A+Ox3, euthymic affect Orientation: alert and oriented x 3 Results & Data Vital Signs (Past 12 Hours) Vital Signs Temp Pulse Pulse Resp BP BP Pulse Ox 09/29/18 15:06 37.2 C 116 H 18 138/75 97 09/29/18 11:31 37.2 C 95 H 18 131/64 94 09/29/18 08:00 105 H 09/29/18 07:31 36.7 C 115 H 18 142/62 H 98 09/29/18 04:01 36.8 C 106 H 20 121/72 97 (1) S/P TKR (total knee replacement) Laterality: left Qualified Code(s): Z96.652 - Presence of left artificial knee joint (2) Degenerative joint disease of left knee Osteoarthritis type: unspecified Qualified Code(s): M17.12 - Unilateral primary osteoarthritis, left knee (3) A-fib Atrial fibrillation type: chronic Qualified Code(s): I48.2 - Chronic atrial fibrillation (4) HTN (hypertension) Hypertension type: unspecified Qualified Code(s): I10 - Essential (primary) hypertension (5) Diabetes Diabetes mellitus type: type 2 Diabetes mellitus prison insulin use: without termite exterminator helper use Diabetes mellitus complication status: without complication Qualified Code(s): E11.9 - Type 2 diabetes mellitus without complications (6) Coronary artery disease Coronary Disease-Associated Artery/Lesion type: [place] artery [place] vs. transplanted heart: [place] heart Associated angina: without angina Qualified Code(s): I25.10 - Atherosclerotic heart disease of [place] coronary artery without angina pectoris (7) Hypothyroidism Hypothyroidism type: postablative Qualified Code(s): E89.0 - Postprocedural hypothyroidism (8) GERD (gastroesophageal reflux disease) Esophagitis presence: without esophagitis Qualified Code(s): K21.9 - Gastro- esophageal reflux disease without esophagitis (9) Hemarthrosis involving knee joint Laterality: left Qualified Code(s): M25.062 - Hemarthrosis, left knee
[2018-09-29] MEDS: WARFARIN SOD 5 MG TAB PO SCH (16:17)
[2018-09-29] MEDS: VANCOMYCIN HCL 1,000 MG in SODIUM CHLORIDE 0.9% 250 ML IV SCH (20:34)
[2018-09-29] MEDS: PANTOprazole 40 MG TAB PO SCH (20:37)
[2018-09-29] MEDS: SENNA 8.6 MG TAB PO SCH (20:38)
[2018-09-29] MEDS: ROSUVASTATIN CALCIUM 10 MG TAB PO SCH (20:38)
[2018-09-30] MEDS: PIPERACILLIN/TAZOBACTAM 3.375 GM in DEXTROSE 5% 100 ML IV SCH ×2 (00:13→09:20)
[2018-09-30] MEDS: HYDROmorphone INJ 0.5 MG/0.5 ML SYR IV PRN (03:26)
[2018-09-30] MEDS: LEVOTHYROXINE SODIUM 100 MCG TABLET PO SCH (05:49)
[2018-09-30] MEDS: OXYCODONE HCL IR 5 MG TAB (IMMEDIATE RELEASE) PO PRN ×2 (05:50→13:10)
[2018-09-30 06:39] LABS: Hematocrit (blood only) 27.4 % (37-47); Hemoglobin 8.8 g/dL (12.0-16.0); Mean Corpuscular Hgb Conc 32.1 g/dL (32-36); Mean Corpuscular Volume 89.8 fL (80-100); Mean Platelet Volume 9.8 fL (7.4-10.4); Platelet Count 209 K/uL (130-400); RDW Coefficient of Variation 15.7 % (11.5-14.5); RDW Standard Deviation 51.4 fL (36.4-46.3); Red Blood Count 3.05 M/uL (4.2-5.4); White Blood Count 12.08 K/uL (4.8-10.8)
[2018-09-30 06:46] LABS: Prothrombin Time 10.4 Seconds (9.0-12.0)
[2018-09-30 07:16] LABS: Creatinine Clr Calc Pharmacy 38.3 ml/min; Est GFR (African American) 54.4; Est GFR (Non-African American) 46.9
--- NOTE | 2018-09-30 07:58 | Orthopedic Progress Note ---
Date of Service September 30, 2018 Assessment & Plan (1) Degenerative joint disease of left knee: s/p L TKA POD#7 -ancef x 24 -DVT ppx: SCDs, TEDs, Coumadin per medical team, goal INR 2.5-3.5. -WBAT LLE -PT/OT -XR L knee demonstrates a well aligned well fixed prosthesis without fracture/dislocation -am labs hgb 8.8, Cr 1.21, INR 1.0 -Medical hospitalist consult recs appreciated -DC planning -Left knee hemarthrosis, improvement in today's examination, continue down current treatment plan. We will continue to monitor closely. Ice, elevation, compressive dressing/Vincent wrap. Limit bending no greater than 80-90 degrees flexion at this time. POD#2 -ancef x 24 -DVT ppx: SCDs, TEDs, restart patients home DVT meds, lovenox--> coumadin, follows coumadin clinic, plavix -WBAT LLE -PT/OT -HMV drain DC'd -XR L knee demonstrates a well aligned well fixed prosthesis without fract ure/dislocation -am labs hgb 9.3, s/p 2 units PRBC, INR 1.6, Cr 1.51, at baseline -Medical hospitalist consult recs appreciated -DC planning - home with HH s/p L TKA POD#1 -ancef x 24 -DVT ppx: SCDs, TEDs, restart patients home DVT meds, lovenox--> coumadin, follows coumadin clinic, plavix -WBAT LLE -PT/OT -monitor drain output 50/564 -XR L knee demonstrates a well aligned well fixed prosthesis without fracture/dislocation -am labs hgb 7.3, acute post operative anemia secondary to richar-operative blood loss and dilusional effect. 2 units PRBC being tranfused today. -Medical hospitalist consult recs appreciated -DC planning - home with HH Subjective Post Operative Progress Note Patient seen sitting up in bed eating breakfast, comfortable, denies complaints, pain improved today, no acute issues. Review of Systems Review of Systems: All systems reviewed & are unremarkable except as noted in HPI & below Constitutional: as per Subjective / HPI Physical Exam Physical Exam: LLE NVSI +EHL/FHL/TA/GS SILT grossly, +2 DP pulse, compartments soft NT, dressing cdi. Large knee hemarthrosis/effusion, edema and ecchymosis mildly improved today. Constitutional: WD/WN, vitals as above Results & Data Vital Signs (Past 12 Hours) Vital Signs Temp Pulse Resp BP Pulse Ox 09/30/18 07:25 36.8 C 109 H 20 113/59 L 99 09/30/18 04:00 36.7 C 92 H 18 127/64 99 09/30/18 00:00 37.3 C 88 18 119/56 L 94 (1) Degenerative joint disease of left knee Osteoarthritis type: unspecified Qualified Code(s): M17.12 - Unilateral primary osteoarthritis, left knee
[2018-09-30] MEDS: INSULIN ASPART 100 UNITS/ML 3 ML PEN SC SCH ×4 (09:19→20:35)
[2018-09-30] MEDS: AMITRIPTYLINE HCL 25 MG TAB PO SCH ×4 (09:22→20:32)
[2018-09-30] MEDS: DOCUSATE SODIUM 100 MG CAP PO SCH ×2 (09:22→20:32)
[2018-09-30] MEDS: MoRPHine SULFATE CR 15 MG TABCR PO SCH ×2 (09:23→20:32)
[2018-09-30] MEDS: POTASSIUM CHLORIDE 10 MEQ TABCR PO SCH (09:24)
[2018-09-30] MEDS: FOLIC ACID 1 MG TAB PO SCH (09:24)
[2018-09-30] MEDS: FUROSEMIDE 20 MG TAB PO SCH (09:25)
[2018-09-30] MEDS: METOPROLOL TARTRATE 25 MG TAB PO SCH ×2 (09:25→20:32)
[2018-09-30] MEDS: ROPINIROLE HCL 1 MG TABLET PO SCH ×3 (09:26→20:32)
[2018-09-30] MEDS: MULTIVITAMIN TAB PO SCH (09:31)
[2018-09-30] MEDS ORDERED: Heparin IV Low Dose *NO* Bolus IV SCH (09:34)
--- NOTE | 2018-09-30 09:44 | Cardiology Progress Note ---
Date of Service September 30, 2018 Assessment & Plan (1) S/P TKR (total knee replacement): (2) Acute blood loss as cause of postoperative anemia: (3) H/O mitral valve replacement with mechanical valve: (4) Rheumatic disease of heart valve: (5) Diabetes type 2, controlled: (6) History of CVA (cerebrovascular accident): (7) Atrial fibrillation: The patient is markedly improved and in good spirits. Her INR has not started to elevate. I will start low-dose heparin today without a bolus. Continue warfarin daily. Subjective The patient was transferred to MICU yesterday. She seems to be doing a lot better. The pain control for her left lower extremity is improved. There is been no additional bleeding and her leg circumference actually looks improved. Review of Systems Review of Systems: All systems reviewed & are unremarkable except as noted in HPI & below Nothing additional Physical Exam Physical Exam: General: no acute distress and stated age Head: normocephalic, no masses, lesions, tenderness or abnormalities Eyes: conjunctiva are pink and non-injected, sclera clear Neck: supple, no adenopathy, no bruits, normal jugular venous pulse, no hepatojugular reflux Chest: normal shape and normal respiratory effort Lungs: clear to auscultation and percussion Cardiac Exam: - irregular rate & rhythm, no murmurs gallops or rubs -mechanical S1 Pulses: 2(+) throughout Abdomen: abdomen soft, non-tender, no abnormal masses and no hepatosplenomegaly Musculoskeletal: no gait disturbance, no joint inflammation, no deforming arthritis Extremities: no edema and no cyanosis Neuro: grossly normal exam Results & Data Vital Signs (Past 12 Hours) Vital Signs Temp Pulse Resp BP Pulse Ox 09/30/18 07:25 36.8 C 109 H 20 113/59 L 99 09/30/18 04:00 36.7 C 92 H 18 127/64 99 09/30/18 00:00 37.3 C 88 18 119/56 L 94 Laboratory Results Laboratory Results - last 24 hr 09/29/18 09/29/18 09/29/18 11:26 16:39 20:34 WBC RBC Hgb Hct MCV MCH MCHC RDW Std Deviation RDW Coeff of Courtney Plt Count MPV PT INR Sodium Potassium Chloride Carbon Dioxide Anion Gap BUN Creatinine Est Cr Clr Drug Dosing Est GFR ( Amer) Est GFR (Non-Af Amer) BUN/Creatinine Ratio Glucose POC Glucose 189 H 172 H 144 H Calcium 09/30/18 09/30/18 09/30/18 06:08 06:08 06:08 WBC 12.08 H RBC 3.05 L Hgb 8.8 L Hct 27.4 L MCV 89.8 MCH 28.9 MCHC 32.1 RDW Std Deviation 51.4 H RDW Coeff of Courtney 15.7 H Plt Count 209 MPV 9.8 PT 10.4 INR 1.0 Sodium 133 L Potassium 4.0 D Chloride 99 Carbon Dioxide 29 Anion Gap 5.0 BUN 11 Creatinine 1.21 H Est Cr Clr Drug Dosing 38.3 Est GFR ( Amer) 54.4 Est GFR (Non-Af Amer) 46.9 BUN/Creatinine Ratio 9.0 L Glucose 118 H POC Glucose Calcium 9.0 Medications Administered Current Inpatient Medications Acetaminophen (Tylenol) 1,000 mg PO Q8 PRN PRN Reason: pain/fever Stop: 10/23/18 13:59 Last Admin: 09/28/18 14:47 Dose: 1,000 mg Documented by: Amitriptyline HCl (Elavil) 25 mg PO QID [facility] Stop: 10/23/18 16:59 Last Admin: 09/30/18 09:22 Dose: 25 mg Documented by: Bisacodyl (Dulcolax) 10 mg MO DAILY PRN PRN Reason: Constipation Stop: 10/23/18 11:05 Dextrose (Dextrose 50%) 25 - 50 ml IV UD PRN; Protocol PRN Reason: Hypoglycemia Protocol Stop: 10/23/18 14:21 Diphenhydramine HCl (Benadryl Capsule) 25 mg PO Q8H PRN PRN Reason: Itching Stop: 10/23/18 11:05 Docusate Sodium (Colace) 100 mg PO BID [facility] Stop: 10/23/18 20:59 Last Admin: 09/30/18 09:22 Dose: 100 mg Documented by: Folic Acid (Folvite) 1 mg PO QAM [facility] Stop: 10/23/18 11:05 Last Admin: 09/30/18 09:24 Dose: 1 mg Documented by: Furosemide (Lasix) 20 mg PO QAM [facility] Stop: 10/27/18 08:59 Last Admin: 09/30/18 09:25 Dose: 20 mg Documented by: Glucagon (Glucagen) 1 mg SQ UD PRN; Protocol PRN Reason: Hypoglycemia Protocol Stop: 10/23/18 14:21 Glucose (Glucose 40%) 15 - 30 gm PO UD PRN; Protocol PRN Reason: Hypoglycemia Protocol Stop: 10/23/18 14:21 Glucose (Dex4 Glucose) 4 - 8 tabs PO UD PRN; Protocol PRN Reason: Hypoglycemia Protocol Stop: 10/23/18 14:21 Heparin Sodium/Dextrose () 1 ea IV Q15M PRISCILA; Protocol Stop: 10/30/18 09:33 Hydromorphone HCl (Dilaudid) 0.5 mg IV Q4H PRN PRN Reason: Pain Stop: 10/07/18 11:05 Last Admin: 09/30/18 03:26 Dose: 0.5 mg Documented by: Sodium Chloride (Nss) 250 mls @ 15 mls/hr IV .[id number] PRN PRN Reason: For Transfusion Stop: 10/26/18 12:48 Sodium Chloride (Nss) 250 mls @ 15 mls/hr IV .[id number] PRN PRN Reason: For Transfusion Stop: 10/26/18 23:17 Piperacillin Sod/Tazobactam (Sod 3.375 gm/ Dextrose) 115 mls @ 28.75 mls/hr IV Q8H PRISCILA; Protocol Stop: 11/10/18 00:00 Last Admin: 09/30/18 09:20 Dose: 28.8 mls/hr Documented by: Vancomycin HCl 1,000 mg/ (Sodium Chloride) 270 mls @ 125 mls/hr IV Q24H PRISCILA; Protocol Stop: 11/09/18 19:59 Last Infusion: 09/29/18 23:12 Dose: Infused Documented by: Heparin Sodium/Dextrose (Heparin Sodium/Dextrose) 25,000 units in 500 mls @ 0.02 mls/hr IV .Q24H [facility]; Protocol Stop: 10/30/18 09:44 Insulin Aspart (Novolog Flexpen) 0 units SC ACHS [facility] Stop: 10/23/18 20:59 Last Admin: 09/30/18 09:19 Dose: 5 units Documented by: Levothyroxine Sodium (Synthroid) 100 mcg PO DAILYBB [facility] Stop: 10/23/18 11:59 Last Admin: 09/30/18 05:49 Dose: 100 mcg Documented by: Magnesium Hydroxide (Milk Of Magnesia) 30 ml PO Q6H PRN PRN Reason: Constipation Stop: 10/23/18 11:05 Last Admin: 09/26/18 09:08 Dose: 30 ml Documented by: Metoclopramide HCl (Reglan) 10 mg IV Q6H PRN PRN Reason: Nausea And Vomiting Stop: 10/23/18 11:05 Last Admin: 09/28/18 13:25 Dose: 10 mg Documented by: Metoprolol Tartrate (Lopressor) 5 mg IV Q6 PRN PRN Reason: HR> 100 Stop: 10/26/18 17:59 Last Admin: 09/27/18 09:03 Dose: 5 mg Documented by: Metoprolol Tartrate (Lopressor) 25 mg PO BID [facility] Stop: 10/27/18 08:59 Last Admin: 09/30/18 09:25 Dose: 25 mg Documented by: Miscellaneous (Carbohydrates For Hypoglycemia) 15 - 30 gm PO UD PRN PRN Reason: Hypoglycemia Treatment Stop: 10/23/18 14:21 Miscellaneous Information (Consult) 1 ea N/A UD PRN PRN Reason: Consult Stop: 10/28/18 18:09 Miscellaneous Information (Consult) 1 ea N/A UD PRN PRN Reason: Consult Stop: 10/28/18 18:09 Morphine Sulfate (Ms Contin) 15 mg PO Q12H [facility] Stop: 10/13/18 07:59 Last Admin: 09/30/18 09:23 Dose: 15 mg Documented by: Multivitamins (Multivitamin Tab) 1 tab PO QAM [facility] Stop: 10/24/18 08:59 Last Admin: 09/30/18 09:31 Dose: Not Given Documented by: Naloxone HCl (Narcan) 0.1 mg IV Q5M PRN PRN Reason: Oversedation/Resp Depression Stop: 10/23/18 11:05 Ondansetron HCl (Zofran) 4 mg IV Q6H PRN PRN Reason: Nausea And Vomiting Stop: 10/23/18 11:05 Oxycodone HCl (Roxicodone Immediate Rel) 5 - 10 mg PO Q4H PRN PRN Reason: Pain Stop: 10/07/18 11:05 Last Admin: 09/30/18 05:50 Dose: 10 mg Documented by: Pantoprazole Sodium (Protonix) 40 mg PO HS [facility] Stop: 10/23/18 20:59 Last Admin: 09/29/18 20:37 Dose: 40 mg Documented by: Potassium Chloride (Klor-Con M10) 10 meq PO DAILY PRISCILA Stop: 10/24/18 08:59 Last Admin: 09/30/18 09:24 Dose: 10 meq Documented by: Ropinirole HCl (Requip) 2 mg PO TID PRISCILA Stop: 10/23/18 13:59 Last Admin: 09/30/18 09:26 Dose: 2 mg Documented by: Rosuvastatin Calcium (Crestor) 10 mg PO QPM PRISCILA Stop: 10/23/18 20:59 Last Admin: 09/29/18 20:38 Dose: 10 mg Documented by: Sennosides (Senokot) 17.2 mg PO HS [facility] Stop: 10/23/18 20:59 Last Admin: 09/29/18 20:38 Dose: 17.2 mg Documented by: Thiamine HCl (Vitamin B-1) 50 mg PO QAM PRISCILA Stop: 10/23/18 11:05 Last Admin: 09/29/18 08:43 Dose: 50 mg Documented by: Warfarin Sodium (Coumadin) 7.5 mg PO DAILY@1600 [facility] Stop: 10/30/18 15:59 (1) Atrial fibrillation Atrial fibrillation type: unspecified Qualified Code(s): I48.91 - Unspecified atrial fibrillation (2) Diabetes type 2, controlled Diabetes mellitus complication status: without complication Diabetes mellitus chcf insulin use: without intermediate manager use Qualified Code(s): E11.9 - Type 2 diabetes mellitus without complications (3) S/P TKR (total knee replacement) Laterality: left Qualified Code(s): Z96.652 - Presence of left artificial knee joint
[2018-09-30] MEDS: HEPARIN SODIUM/DEXTROSE 25,000 UNITS/500 ML BAG IV SCH (10:23)
[2018-09-30] MEDS: THIAMINE HCL 50 MG TABLET PO SCH (10:31)
[2018-09-30 11:00] LABS: Basophils # (auto) 0.04 K/uL (0-0.2); Basophils % (auto) 0.3 %; Eosinophils # (auto) 0.34 K/uL (0-0.5); Eosinophils % (auto) 2.7 %; Immature Granulocytes # (auto) 0.71 K/uL (0.00-0.02); Immature Granulocytes % (auto) 5.7 %; Lymphocytes # (auto) 1.64 K/uL (1.2-3.4); Lymphocytes % (auto) 13.1 %; Monocytes % (auto) 12.8 %; Neutrophils % (auto) 65.4 %; Polychromasia 1+
[2018-09-30 11:06] LABS: Partial Thromboplastin Ratio 1.2; Partial Thromboplastin Time 31.3 Seconds (21.0-31.0)
--- NOTE | 2018-09-30 13:52 | Communication Note ---
Date of Service: September 30, [address] Cormier this AM. Received a call from him that he would like to have the LLE wrapped in a double teagan wrap. Pt awake,alert. Feeling much better today. No new complaints. Double teagan wrap applied to the LLE. Pt states her leg feels a little better with the teagan wrap on.
[2018-09-30] MEDS: WARFARIN SOD 7.5 MG TAB PO SCH (16:31)
[2018-09-30] MEDS: CEFAZOLIN 1000MG 1,000 MG/7.5 ML SYR IV SCH ×2 (16:38→22:18)
[2018-09-30 16:58] LABS: Partial Thromboplastin Ratio 1.4; Partial Thromboplastin Time 37.9 Seconds (21.0-31.0)
[2018-09-30] MEDS ORDERED: HEPARIN IV BOLUS 4,000 UNITS in SYRINGE 0 ML IV ONE (18:45)
[2018-09-30] MEDS ORDERED: VANCOMYCIN TROUGH ONE (19:30)
--- NOTE | 2018-09-30 19:34 | Hospitalist Progress Note ---
Date of Service September 30, 2018 Assessment & Plan (1) Hemarthrosis involving knee joint: Patient developed worsening of left knee pain swelling yesterday, CT of left knee shows large area of blood collection/hemarthrosis Anatomic alignment of prosthesis Patient was given 5 mg IV vitamin K as INR was 3.9 Repeat INR next day showed Subtherapeutic 1.1 Orthopedics team asked to reevaluate left knee joint Appreciate input, Present recommend conservative management, with close watch , allow natural resolution/hemolysis of left knee surrounding area blood collection It is high risk to develop septic arthritis, for I&D Also increased risk for recurrent hemarthrosis after the procedure, as patient's anticoagulation could not be interrupted due to presence of mechanical mitral valve Continue pain control: Ordered MS Contin 15 mg twice daily by orthopedics Patient reports improvement of left knee pain Also ordered oxycodone as needed for breakthrough pain Marked movement of left knee swelling, ecchymosis today Started on low-dose IV heparin, with Coumadin, as INR remains low at 1.1 Appreciate input from cardiology and orthopedics (2) Pain, joint, knee, left: Due to above Improvement of symptoms today Developed marked swelling- increased pain tenderness warmth noted on left knee joint CT of left knee:Large amount of high density joint effusion compatible with hemarthrosis surrounding left prosthetic joint Orthopedics asked to reevaluate Appreciate input, recommend conservative approach with close monitoring for further bleeding complication No plan for incision drainage/operative procedure yet, high risk for infection/sepsis with repeat left knee surgery At present patient appears to be responding well with conservative management, Continue pain control, Orthopedics following closely (3) S/P TKR (total knee replacement): Postop complication with ongoing acute blood loss anemia requiring 4 units of blood transfusion Developed large hemarthrosis on left knee joint , subcu Lovenox and Plavix been DC'd IV vitamin K 5 mg given for INR of 3.9, CT evidence of large left knee hemarthrosis INR dropped to 1.1 Patient started on Coumadin 5 mg daily, repeat INR 1.1 today Started on IV heparin low-dose without any bolus, Coumadin dose increased to 7.5 Monitor daily PT/INR, goal INR 2.53.5 (4) Degenerative joint disease of left knee: - POD#[address] Cormier -Postoperative course complicated by rapid A. fib RVR, acute blood loss anemia, with ongoing bleeding at the surgical site Patient was on multiple anticoagulation: Plavix, Coumadin and Lovenox bridge for mechanical mitral valve Plavix kept on hold/Lovenox bridge discontinued Coumadin resumed as INR dropped to 1.1 after vitamin K given Low dose IV heparin with Coumadin started, monitor H&H and PT/INR closely (5) A-fib: - history of chronic a. fib -Developed A. fib with RVR post op - likely due to acute blood loss anemia - cont to correct anemia to keep hb 10 -Lovenox bridge discontinued, Hold Plavix on metoprolol for rate control Dose increased to 12.5 mg twice daily Appreciate input from cardiology Recommend to correct anemia, Coumadin resumed, low-dose IV heparin for INR 1.1 (6) H/O mitral valve replacement with mechanical valve: high risk for thromboembolic events/stroke, mitral valve thrombosis with subtherapeutic INR Goal INR 2.53.5 Was given vitamin K , as CT shows large hemarthrosis on left knee, INR was 3.9 INR 1.1 today, IV heparin low-dose bridge with Coumadin (7) HTN (hypertension): -Continue metoprolol (8) Diabetes: -hgb a1c 5.8 08/2018 -diet controlled at home -Novolog per protocol while hospitalized (9) Acute blood loss as cause of postoperative anemia: -Acute hemarthrosis noted at around left knee joint Patient was on multiple anticoagulation Plavix, Lovenox subcu discontinued Coumadin continued, due to presence of mechanical mitral valve Added low-dose IV heparin bridge Received total 4 units of PRBC transfusion Hemoglobin dropped to 8.8: Patient remains hemodynamically stable Repeat H&H tomorrow, patient will need a transfusion is hemoglobin drop less than 8 or developed rapid A. fib RVR (10) Coronary artery disease: - stable, no reports of chest pain/shortness of breath or angina symptom - continue beta marjorie, statin, -Plavix kept on hold for ongoing postop bleeding complication (11) CKD (chronic kidney disease), stage III: - baseline creat runs in the mid 1's - continue to monitor, avoid nephrotoxic agents when able (12) Hypothyroidism: - Continue levothyroxine (13) GERD (gastroesophageal reflux disease): - continue PPI (14) DVT prophylaxis: - Coumadin low dose IV heparin bridge (15) Leg edema: Individual left lower extremity edema noted, Due to inflammation/diffuse ecchymosis from left knee hemarthrosis Continue to monitor Keep limb elevated CODE STATUS: Full code Disposition: Continue monitoring telemetry Given multiple postoperative complication Patient may require rehab after discharge from hospital Discussed with patient regarding options-patient wants to go home with home health when medically stable We will update the case management Subjective Patient appears to be in good spirit Left lower leg/knee pain improved Improvement of swelling left knee joint, improvement of ecchymosis noted left upper thigh and left foot area No further bleeding or oozing noted on the dressing Appreciate input from orthopedics, We will continue to observe patient, appears to be bleeding has ceased on left knee, no plan or indication for hematoma evacuation left knee Patient started on IV heparin low-dose No bolus as INR remains subtherapeutic 1.1 Coumadin dose increased to 7.5 mg daily Remains in chronic A. fib with heart rate between [id number] Physical Exam Constitutional: WD/WN, vitals as above no acute distress Eyes: PERRL, conjunctivae normal, anicteric sclerae ENMT: external ear and nose normal, oropharynx normal Neck: trachea midline, no thyromegaly Respiratory: normal respiratory effort, lungs clear to auscultation Cardiovascular: Rate/Rhythm: regular rate and + irregularly irregular; + abnormal rhythm Heart Sounds: + click (Metallic valve click noted) Vessels: normal peripheral pulses Gastrointestinal (Abdomen): normal bowel sounds, soft, nontender, no hepatosplenomegaly Musculoskeletal: Head/Neck/Chest: + chest wall crepitus Knee: + effusion (left knee joint swelling suggestive for effusion), + ecchymosis (Left lower extremity), + surgical incision (Left knee joint TKA, significant bruising ecchymosis, with clotted blood no) and + limited ROM of knee (On left knee joint secondary to significant) Ankle: + ankle abnormal to inspection (Swelling and erythema on left ankle), + effusion (3+ edema on left ankle), + skin erythema (On left ankle) and + ecchymosis (Left ankle) Skin: no rashes, warm and dry Neurologic: PERRL, EOMI, accommodation nl, no face palsy, no dysarthria Psychiatric: A+Ox3, euthymic affect Orientation: alert and oriented x 3 Results & Data Vital Signs (Past 12 Hours) Vital Signs Temp Pulse Resp BP BP Pulse Ox 09/30/18 16:15 36.8 C 101 H 16 138/71 138/71 99 09/30/18 11:42 36.5 C 86 16 131/59 L 95 (1) Diabetes Diabetes mellitus complication status: without complication 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 transplanted heart: [place] heart Qualified Code(s): I25.10 - Atherosclerotic heart disease of [place] coronary artery without angina pectoris (3) A-fib Atrial fibrillation type: chronic Qualified Code(s): I48.2 - Chronic atrial fibrillation (4) Hypothyroidism Hypothyroidism type: postablative Qualified Code(s): E89.0 - Postprocedural hypothyroidism (5) S/P TKR (total knee replacement) Laterality: left Qualified Code(s): Z96.652 - Presence of left artificial knee joint (6) Degenerative joint disease of left knee Osteoarthritis type: unspecified Qualified Code(s): M17.12 - Unilateral primary osteoarthritis, left knee (7) Hemarthrosis involving knee joint Laterality: left Qualified Code(s): M25.062 - Hemarthrosis, left knee (8) GERD (gastroesophageal reflux disease) Esophagitis presence: without esophagitis Qualified Code(s): K21.9 - Gastro- esophageal reflux disease without esophagitis (9) HTN (hypertension) Hypertension type: unspecified Qualified Code(s): I10 - Essential (primary) hypertension
[2018-09-30] MEDS: SENNA 8.6 MG TAB PO SCH (20:32)
[2018-09-30] MEDS: PANTOprazole 40 MG TAB PO SCH (20:32)
[2018-09-30] MEDS: ROSUVASTATIN CALCIUM 10 MG TAB PO SCH (20:32)
[2018-10-01] MEDS: OXYCODONE HCL IR 5 MG TAB (IMMEDIATE RELEASE) PO PRN ×4 (00:05→17:17)
[2018-10-01 01:11] LABS: Partial Thromboplastin Ratio 2.2
[2018-10-01 01:14] LABS: Partial Thromboplastin Time 59.3 Seconds (21.0-31.0)
[2018-10-01] MEDS: CEFAZOLIN 1000MG 1,000 MG/7.5 ML SYR IV SCH ×3 (04:16→17:32)
[2018-10-01] MEDS: LEVOTHYROXINE SODIUM 100 MCG TABLET PO SCH (05:22)
[2018-10-01 06:39] LABS: Hematocrit (blood only) 27.2 % (37-47); Hemoglobin 8.9 g/dL (12.0-16.0); Mean Corpuscular Hgb Conc 32.7 g/dL (32-36); Mean Corpuscular Volume 90.1 fL (80-100); Mean Platelet Volume 9.1 fL (7.4-10.4); Platelet Count 264 K/uL (130-400); RDW Coefficient of Variation 15.6 % (11.5-14.5); RDW Standard Deviation 50.3 fL (36.4-46.3); Red Blood Count 3.02 M/uL (4.2-5.4); White Blood Count 13.68 K/uL (4.8-10.8)
[2018-10-01 07:00] LABS: INR 1.1 (0.9-1.1); Partial Thromboplastin Ratio 1.8; Prothrombin Time 11.3 Seconds (9.0-12.0)
[2018-10-01 07:13] LABS: BUN Creatinine Ratio 9.7 (10-20); Calcium 9.1 mg/dl (8.5-10.1); Creatinine Clr Calc Pharmacy 37.4 ml/min; Est GFR (African American) 52.8; Est GFR (Non-African American) 45.5; Potassium 3.5 mmol/L (3.5-5.1)
[2018-10-01] MEDS: INSULIN ASPART 100 UNITS/ML 3 ML PEN SC SCH ×4 (08:57→21:19)
[2018-10-01] MEDS: MoRPHine SULFATE CR 15 MG TABCR PO SCH ×2 (08:57→21:15)
[2018-10-01] MEDS: ROPINIROLE HCL 1 MG TABLET PO SCH ×3 (08:58→21:18)
[2018-10-01] MEDS: AMITRIPTYLINE HCL 25 MG TAB PO SCH ×4 (08:58→21:17)
[2018-10-01] MEDS: METOPROLOL TARTRATE 25 MG TAB PO SCH ×2 (08:59→21:17)
[2018-10-01] MEDS: THIAMINE HCL 50 MG TABLET PO SCH (08:59)
[2018-10-01] MEDS: POTASSIUM CHLORIDE 10 MEQ TABCR PO SCH (09:00)
[2018-10-01] MEDS: FOLIC ACID 1 MG TAB PO SCH (09:00)
[2018-10-01] MEDS: FUROSEMIDE 20 MG TAB PO SCH (09:01)
[2018-10-01] MEDS: DOCUSATE SODIUM 100 MG CAP PO SCH ×2 (09:02→21:21)
[2018-10-01] MEDS: MULTIVITAMIN TAB PO SCH (09:02)
--- NOTE | 2018-10-01 09:51 | Orthopedic Progress Note ---
Date of Service October 01, 2018 Assessment & Plan (1) Degenerative joint disease of left knee: s/p L TKA POD#8 -DVT ppx: SCDs, TEDs, Coumadin per medical team, goal INR 2.5-3.5. -WBAT LLE -PT/OT -Medical hospitalist consult recs appreciated -DC planning - WBC' 13.86, Hgb 8.9 -Left knee hemarthrosis, improvement in today's examination, continue down current treatment plan. We will continue to monitor closely. Ice, elevation, compressive dressing/Vincent wrap. Limit bending no greater than 80-90 degrees flexion at this time. POD#2 -ancef x 24 -DVT ppx: SCDs, TEDs, restart patients home DVT meds, lovenox--> coumadin, follows coumadin clinic, plavix -WBAT LLE -PT/OT -HMV drain DC'd -XR L knee demonstrates a well aligned well fixed prosthesis without fracture/dislocation -am labs hgb 9.3, s/p 2 units PRBC, INR 1.6, Cr 1.51, at baseline -Medical hospitalist consult recs appreciated -DC planning - home with HH s/p L TKA POD#1 -ancef x 24 -DVT ppx: SCDs, TEDs, restart patients home DVT meds, lovenox--> coumadin, follows coumadin clinic, plavix -WBAT LLE -PT/OT -monitor drain output 50/564 -XR L knee demonstrates a well aligned well fixed prosthesis without fracture/dislocation -am labs hgb 7.3, acute post operative anemia secondary to richar-operative blood loss and dilusional effect. 2 units PRBC being tranfused today. -Medical hospitalist consult recs appreciated -DC planning - home with Supervising Physician Co-Signing Physician Notes Patient seen and examined, agree with above assessment and plan. Subjective POD #8 Denies SOB, CP, N/V States her hematoma continues to fell better and improve. Pain controlled well. Physical Exam Physical Exam: Left knee mesh/ glue in tact, skin edges approximated well. No redness, no drainage. Still significant ecchymosis, swelling improved. Toes/ ankle mobile, distal pulses in tact. Results & Data Vital Signs (Past 12 Hours) Vital Signs Temp Pulse Resp BP BP Pulse Ox 10/01/18 07:33 37.1 C 98 H 19 115/55 L 94 10/01/18 03:00 36.9 C 104 H 18 121/60 97 10/01/18 00:25 36.9 C 106 H 16 121/60 93 (1) Degenerative joint disease of left knee Osteoarthritis type: unspecified Qualified Code(s): M17.12 - Unilateral primary osteoarthritis, left knee
[2018-10-01] MEDS: HEPARIN SODIUM/DEXTROSE 25,000 UNITS/500 ML BAG IV SCH (10:13)
--- NOTE | 2018-10-01 10:33 | Cardiology Progress Note ---
Date of Service October 01, 2018 Assessment & Plan (1) S/P TKR (total knee replacement): (2) Acute blood loss as cause of postoperative anemia: (3) H/O mitral valve replacement with mechanical valve: (4) Rheumatic disease of heart valve: (5) Diabetes type 2, controlled: (6) History of CVA (cerebrovascular accident): (7) Atrial fibrillation: The patient's INR is 1.1 today. She is in good spirits. I would continue the heparin at low dose and let her INR slowly come up. Continue warfarin. Hemoglobin is 8.9 today. Subjective The patient had an uneventful night. No new cardiac complaints. Review of Systems Review of Systems: All systems reviewed & are unremarkable except as noted in HPI & below Nothing additional to add. Physical Exam Physical Exam: General: no acute distress and stated age Head: normocephalic, no masses, lesions, tenderness or abnormalities Eyes: conjunctiva are pink and non-injected, sclera clear Neck: supple, no adenopathy, no bruits, normal jugular venous pulse, no hepatojugular reflux Chest: normal shape and normal respiratory effort Lungs: clear to auscultation and percussion Cardiac Exam: - regular rate & rhythm, no murmurs gallops or rubs - normal S1, normal S2 Pulses: 2(+) throughout Abdomen: abdomen soft, non-tender, no abnormal masses and no hepatosplenomegaly Musculoskeletal: no gait disturbance, no joint inflammation, no deforming arthritis Extremities: Mostly ecchymosis of the left lower extremity Neuro: grossly normal exam Results & Data Vital Signs (Past 12 Hours) Vital Signs Temp Pulse Resp BP BP Pulse Ox 10/01/18 07:33 37.1 C 98 H 19 115/55 L 94 10/01/18 03:00 36.9 C 104 H 18 121/60 97 10/01/18 00:25 36.9 C 106 H 16 121/60 93 Laboratory Results Laboratory Results - last 24 hr 09/30/18 09/30/18 09/30/18 06:08 06:08 11:56 WBC RBC Hgb Hct MCV MCH MCHC RDW Std Deviation RDW Coeff of Courtney Plt Count MPV Immature Gran % (Auto) 5.7 Neut % (Auto) 65.4 Lymph % (Auto) 13.1 [place] % (Auto) 12.8 Eos % (Auto) 2.7 Baso % (Auto) 0.3 Immature Gran # (Auto) 0.71 H Neut # (Auto) 8.20 H Lymph # (Auto) 1.64 [place] # (Auto) 1.60 H Eos # (Auto) 0.34 Baso # (Auto) 0.04 Absolute Nucleated RBC 0.00 Nucleated RBC % (auto) 0.0 Polychromasia 1+ PT INR APTT 31.3 H PTT Ratio 1.2 Sodium Potassium Chloride Carbon Dioxide Anion Gap BUN Creatinine Est Cr Clr Drug Dosing Est GFR ( Amer) Est GFR (Non-Af Amer) BUN/Creatinine Ratio Glucose POC Glucose 98 Calcium 09/30/18 09/30/18 09/30/18 16:24 18:11 20:35 WBC RBC Hgb Hct MCV MCH MCHC RDW Std Deviation RDW Coeff of Courtney Plt Count MPV Immature Gran % (Auto) Neut % (Auto) Lymph % (Auto) [place] % (Auto) Eos % (Auto) Baso % (Auto) Immature Gran # (Auto) Neut # (Auto) Lymph # (Auto) [place] # (Auto) Eos # (Auto) Baso # (Auto) Absolute Nucleated RBC Nucleated RBC % (auto) Polychromasia PT INR APTT 37.9 H PTT Ratio 1.4 Sodium Potassium Chloride Carbon Dioxide Anion Gap BUN Creatinine Est Cr Clr Drug Dosing Est GFR ( Amer) Est GFR (Non-Af Amer) BUN/Creatinine Ratio Glucose POC Glucose 199 H 146 H Calcium 10/01/18 10/01/18 10/01/18 00:36 06:25 06:25 WBC RBC Hgb Hct MCV MCH MCHC RDW Std Deviation RDW Coeff of Courtney Plt Count MPV Immature Gran % (Auto) Neut % (Auto) Lymph % (Auto) [place] % (Auto) Eos % (Auto) Baso % (Auto) Immature Gran # (Auto) Neut # (Auto) Lymph # (Auto) [place] # (Auto) Eos # (Auto) Baso # (Auto) Absolute Nucleated RBC Nucleated RBC % (auto) Polychromasia PT 11.3 INR 1.1 APTT 59.3 H* 49.0 H* PTT Ratio 2.2 1.8 Sodium 133 L Potassium 3.5 Chloride 97 L Carbon Dioxide 32 Anion Gap 4.0 BUN 12 Creatinine 1.24 H Est Cr Clr Drug Dosing 37.4 Est GFR ( Amer) 52.8 Est GFR (Non-Af Amer) 45.5 BUN/Creatinine Ratio 9.7 L Glucose 123 H POC Glucose Calcium 9.1 10/01/18 10/01/18 06:25 07:33 WBC 13.68 H RBC 3.02 L Hgb 8.9 L Hct 27.2 L MCV 90.1 MCH 29.5 MCHC 32.7 RDW Std Deviation 50.3 H RDW Coeff of Courtney 15.6 H Plt Count 264 MPV 9.1 Immature Gran % (Auto) Neut % (Auto) Lymph % (Auto) [place] % (Auto) Eos % (Auto) Baso % (Auto) Immature Gran # (Auto) Neut # (Auto) Lymph # (Auto) [place] # (Auto) Eos # (Auto) Baso # (Auto) Absolute Nucleated RBC Nucleated RBC % (auto) Polychromasia PT INR APTT PTT Ratio Sodium Potassium Chloride Carbon Dioxide Anion Gap BUN Creatinine Est Cr Clr Drug Dosing Est GFR ( Amer) Est GFR (Non-Af Amer) BUN/Creatinine Ratio Glucose POC Glucose 142 H Calcium Medications Administered Current Inpatient Medications Acetaminophen (Tylenol) 1,000 mg PO Q8 PRN PRN Reason: pain/fever Stop: 10/23/18 13:59 Last Admin: 09/28/18 14:47 Dose: 1,000 mg Documented by: Amitriptyline HCl (Elavil) 25 mg PO QID [facility] Stop: 10/23/18 16:59 Last Admin: 10/01/18 08:58 Dose: 25 mg Documented by: Bisacodyl (Dulcolax) 10 mg LA DAILY PRN PRN Reason: Constipation Stop: 10/23/18 11:05 Dextrose (Dextrose 50%) 25 - 50 ml IV UD PRN; Protocol PRN Reason: Hypoglycemia Protocol Stop: 10/23/18 14:21 Diphenhydramine HCl (Benadryl Capsule) 25 mg PO Q8H PRN PRN Reason: Itching Stop: 10/23/18 11:05 Docusate Sodium (Colace) 100 mg PO BID [facility] Stop: 10/23/18 20:59 Last Admin: 10/01/18 09:02 Dose: 100 mg Documented by: Folic Acid (Folvite) 1 mg PO QAM [facility] Stop: 10/23/18 11:05 Last Admin: 10/01/18 09:00 Dose: 1 mg Documented by: Furosemide (Lasix) 20 mg PO QAM [facility] Stop: 10/27/18 08:59 Last Admin: 10/01/18 09:01 Dose: 20 mg Documented by: Glucagon (Glucagen) 1 mg SQ UD PRN; Protocol PRN Reason: Hypoglycemia Protocol Stop: 10/23/18 14:21 Glucose (Glucose 40%) 15 - 30 gm PO UD PRN; Protocol PRN Reason: Hypoglycemia Protocol Stop: 10/23/18 14:21 Glucose (Dex4 Glucose) 4 - 8 tabs PO UD PRN; Protocol PRN Reason: Hypoglycemia Protocol Stop: 10/23/18 14:21 Hydromorphone HCl (Dilaudid) 0.5 mg IV Q4H PRN PRN Reason: Pain Stop: 10/07/18 11:05 Last Admin: 09/30/18 03:26 Dose: 0.5 mg Documented by: Sodium Chloride (Nss) 250 mls @ 15 mls/hr IV .[id number] PRN PRN Reason: For Transfusion Stop: 10/26/18 12:48 Sodium Chloride (Nss) 250 mls @ 15 mls/hr IV .[id number] PRN PRN Reason: For Transfusion Stop: 10/26/18 23:17 Heparin Sodium/Dextrose (Heparin Sodium/Dextrose) 25,000 units in 500 mls @ 15 mls/hr IV .Q24H [facility]; Protocol Stop: 10/30/18 09:44 Last Admin: 10/01/18 10:13 Dose: 750 units/hr, 15 mls/hr Documented by: Cefazolin Sodium (Ancef 1000mg) 1,000 mg in 7.5 mls @ 2.5 mls/min IV Q6H [facility] Stop: 11/08/18 15:59 Last Admin: 10/01/18 10:15 Dose: 2.5 mls/min Documented by: Insulin Aspart (Novolog Flexpen) 0 units SC ACHS [facility] Stop: 10/23/18 20:59 Last Admin: 10/01/18 08:57 Dose: 4 units Documented by: Levothyroxine Sodium (Synthroid) 100 mcg PO DAILYBB [facility] Stop: 10/23/18 11:59 Last Admin: 10/01/18 05:22 Dose: 100 mcg Documented by: Magnesium Hydroxide (Milk Of Magnesia) 30 ml PO Q6H PRN PRN Reason: Constipation Stop: 10/23/18 11:05 Last Admin: 09/26/18 09:08 Dose: 30 ml Documented by: Metoclopramide HCl (Reglan) 10 mg IV Q6H PRN PRN Reason: Nausea And Vomiting Stop: 10/23/18 11:05 Last Admin: 09/28/18 13:25 Dose: 10 mg Documented by: Metoprolol Tartrate (Lopressor) 5 mg IV Q6 PRN PRN Reason: HR> 100 Stop: 10/26/18 17:59 Last Admin: 09/27/18 09:03 Dose: 5 mg Documented by: Metoprolol Tartrate (Lopressor) 25 mg PO BID [facility] Stop: 10/27/18 08:59 Last Admin: 10/01/18 08:59 Dose: 25 mg Documented by: Miscellaneous (Carbohydrates For Hypoglycemia) 15 - 30 gm PO UD PRN PRN Reason: Hypoglycemia Treatment Stop: 10/23/18 14:21 Morphine Sulfate (Ms Contin) 15 mg PO Q12H [facility] Stop: 10/13/18 07:59 Last Admin: 10/01/18 08:57 Dose: 15 mg Documented by: Multivitamins (Multivitamin Tab) 1 tab PO QAM [facility] Stop: 10/24/18 08:59 Last Admin: 10/01/18 09:02 Dose: Not Given Documented by: Naloxone HCl (Narcan) 0.1 mg IV Q5M PRN PRN Reason: Oversedation/Resp Depression Stop: 10/23/18 11:05 Ondansetron HCl (Zofran) 4 mg IV Q6H PRN PRN Reason: Nausea And Vomiting Stop: 10/23/18 11:05 Oxycodone HCl (Roxicodone Immediate Rel) 5 - 10 mg PO Q4H PRN PRN Reason: Pain Stop: 10/07/18 11:05 Last Admin: 10/01/18 05:30 Dose: 10 mg Documented by: Pantoprazole Sodium (Protonix) 40 mg PO HS [facility] Stop: 10/23/18 20:59 Last Admin: 09/30/18 20:32 Dose: 40 mg Documented by: Potassium Chloride (Klor-Con M10) 10 meq PO DAILY [facility] Stop: 10/24/18 08:59 Last Admin: 10/01/18 09:00 Dose: 10 meq Documented by: Ropinirole HCl (Requip) 2 mg PO TID [facility] Stop: 10/23/18 13:59 Last Admin: 10/01/18 08:58 Dose: 2 mg Documented by: Rosuvastatin Calcium (Crestor) 10 mg PO QPM [facility] Stop: 10/23/18 20:59 Last Admin: 09/30/18 20:32 Dose: 10 mg Documented by: Sennosides (Senokot) 17.2 mg PO HS [facility] Stop: 10/23/18 20:59 Last Admin: 09/30/18 20:32 Dose: 17.2 mg Documented by: Thiamine HCl (Vitamin B-1) 50 mg PO QAM [facility] Stop: 10/23/18 11:05 Last Admin: 10/01/18 08:59 Dose: 50 mg Documented by: Warfarin Sodium (Coumadin) 7.5 mg PO DAILY@1600 [facility] Stop: 10/30/18 15:59 Last Admin: 09/30/18 16:31 Dose: 7.5 mg Documented by: (1) Atrial fibrillation Atrial fibrillation type: unspecified Qualified Code(s): I48.91 - Unspecified atrial fibrillation (2) Diabetes type 2, controlled Diabetes mellitus complication status: without complication Diabetes mellitus intermediate insulin use: without intermediate use Qualified Code(s): E11.9 - Type 2 diabetes mellitus without complications (3) S/P TKR (total knee replacement) Laterality: left Qualified Code(s): Z96.652 - Presence of left artificial knee joint
[2018-10-01] MEDS: WARFARIN SOD 7.5 MG TAB PO SCH (17:15)
--- NOTE | 2018-10-01 20:04 | Hospitalist Progress Note ---
Date of Service October 01, 2018 Assessment & Plan (1) Hemarthrosis involving knee joint: Operation Date: 09/23/18 Left Total Knee Arthroplasty(Left) by Dr. Cormier with postoperative complication of left knee hemarthosis secondary to being on multiple anticoagulants because of mechanical mitral valve -Ice, elevation, compressive dressing/Vincent wrap. Limit bending no greater than 80-90 degrees flexion at this time. (2) Pain, joint, knee, left: pain is controlled continue pain medications (3) S/P TKR (total knee replacement): Operation Date: 09/23/18 Left Total Knee Arthroplasty(Left) by Dr. Cormier (4) Degenerative joint disease of left knee: Operation Date: 09/23/18 Left Total Knee Arthroplasty(Left) by Dr. Cormier (5) A-fib: - history of chronic a. fib -rate control with metoprolol (6) H/O mitral valve replacement with mechanical valve: -Acute hemarthrosis noted at around left knee joint on this admission -Patient was on multiple anticoagulation at the time (Plavix, Lovenox subcu discontinued) -during this hospital stay patient has received 4 units of PRBC -initially patient's INR was reversed but because of presence of mechanical mitral valve, patient has been resumed on coumadin with heparin IV with aims of trying to get back to therapeutic INR -left leg swelling is still present and in VINCENT dressing but as per patient is reduced in size -patient has left flank bruising noted on 10/01/18 while on coumadin and heparin drip, will get CXR with left rib X ray, will repeat INR and PTT and type and screen, if there is significant with lab work or imaging then systemic anticoagulation may need to be held versus continuing anticoagulation and possible further blood transfusion (7) HTN (hypertension): -Continue metoprolol (8) Diabetes: -hgb a1c 5.8 08/2018 -diet controlled at home -Novolog per protocol while hospitalized (9) Acute blood loss as cause of postoperative anemia: -Acute hemarthrosis noted at around left knee joint on this admission -Patient was on multiple anticoagulation at the time (Plavix, Lovenox subcu discontinued) -during this hospital stay patient has received 4 units of PRBC -initially patient's INR was reversed but because of presence of mechanical mitral valve, patient has been resumed on coumadin with heparin IV with aims of trying to get back to therapeutic INR -left leg swelling is still present and in VINCENT dressing but as per patient is reduced in size -patient has left flank bruising noted on 10/01/18 while on coumadin and heparin drip, will get CXR with left rib X ray, will repeat INR and PTT and type and screen, if there is significant with lab work or imaging then systemic anticoagulation may need to be held versus continuing anticoagulation and possible further blood transfusion (10) Coronary artery disease: -stable, no reports of chest pain/shortness of breath or angina symptom -continue beta marjorie, statin, -Plavix kept on hold for ongoing postop bleeding complication (11) CKD (chronic kidney disease), stage III: -stable renal function (12) Hypothyroidism: - Continue levothyroxine (13) GERD (gastroesophageal reflux disease): - continue PPI (14) DVT prophylaxis: -on systemic anticoagulation of coumadin and IV heparin (15) Leg edema: Individual left lower extremity edema noted, Due to inflammation/diffuse ecchymosis from left knee hemarthrosis CODE STATUS: Full code Subjective Patient on IV heparin drip. Patient has left flank hematoma which is new. she is breathing comfortably on room air. she denies trauma during physical rehab session. patient has chronic atrial fibrillation. heart rate is controlled. left leg remains swollen and in dressing. patient thinks left leg has decreased in size over time Physical Exam Constitutional: comfortable Eyes: PERRL, conjunctivae normal, anicteric sclerae EOM intact bilaterally ENMT: external ear and nose normal, oropharynx normal Neck: trachea midline, no thyromegaly normal visual inspection Respiratory: normal respiratory effort, lungs clear to auscultation Cardiovascular: Rate/Rhythm: regular rate and + irregularly irregular Gastrointestinal (Abdomen): normal bowel sounds, soft, nontender, no hepatosplenomegaly Musculoskeletal: left flank hematoma, left leg swollen in dressing Neurologic: PERRL, EOMI, accommodation nl, no face palsy, no dysarthria Psychiatric: A+Ox3, euthymic affect Results & Data Vital Signs (Past 12 Hours) Vital Signs Temp Pulse Pulse Resp BP BP Pulse Ox 10/01/18 16:00 99 H 10/01/18 15:49 37.3 C 105 H 18 131/65 95 10/01/18 11:36 37.2 C 85 19 140/63 95 10/01/18 08:55 93 H (1) Hemarthrosis involving knee joint Laterality: left Qualified Code(s): M25.062 - Hemarthrosis, left knee (2) S/P TKR (total knee replacement) Laterality: left Qualified Code(s): Z96.652 - Presence of left artificial knee joint (3) Degenerative joint disease of left knee Osteoarthritis type: unspecified Qualified Code(s): M17.12 - Unilateral primary osteoarthritis, left knee (4) A-fib Atrial fibrillation type: chronic Qualified Code(s): I48.2 - Chronic atrial fibrillation (5) HTN (hypertension) Hypertension type: unspecified Qualified Code(s): I10 - Essential (primary) hypertension (6) Diabetes Diabetes mellitus type: type 2 Diabetes mellitus chcf insulin use: without chcf use Diabetes mellitus complication status: without complication Qualified Code(s): E11.9 - Type 2 diabetes mellitus without complications (7) Coronary artery disease Coronary Disease-Associated Artery/Lesion type: [place] artery [place] vs. transplanted heart: [place] heart Associated angina: without angina Qualified Code(s): I25.10 - Atherosclerotic heart disease of [place] coronary artery witho ut angina pectoris (8) Hypothyroidism Hypothyroidism type: postablative Qualified Code(s): E89.0 - Postprocedural hypothyroidism (9) GERD (gastroesophageal reflux disease) Esophagitis presence: without esophagitis Qualified Code(s): K21.9 - Gastro- esophageal reflux disease without esophagitis
[2018-10-01 20:29] LABS: Basophils # (auto) 0.03 K/uL (0-0.2); Basophils % (auto) 0.2 %; Eosinophils # (auto) 0.33 K/uL (0-0.5); Eosinophils % (auto) 2.1 %; Hematocrit (blood only) 26.5 % (37-47); Hemoglobin 8.7 g/dL (12.0-16.0); Immature Granulocytes # (auto) 0.48 K/uL (0.00-0.02); Lymphocytes # (auto) 1.89 K/uL (1.2-3.4); Mean Corpuscular Volume 89.5 fL (80-100); Mean Platelet Volume 8.8 fL (7.4-10.4); Monocytes # (auto) 1.28 K/uL (0.11-0.59); Monocytes % (auto) 8.1 %; Neutrophils # (auto) 11.74 K/uL (1.4-6.5); Neutrophils % (auto) 74.6 %; Platelet Count 303 K/uL (130-400); RDW Coefficient of Variation 15.6 % (11.5-14.5); RDW Standard Deviation 50.4 fL (36.4-46.3); Red Blood Count 2.96 M/uL (4.2-5.4); White Blood Count 15.75 K/uL (4.8-10.8)
[2018-10-01 20:40] LABS: Mean Corpuscular Hgb Conc 32.8 g/dL (32-36)
[2018-10-01 20:52] LABS: INR 1.2 (0.9-1.1); Partial Thromboplastin Ratio 1.9; Prothrombin Time 12.3 Seconds (9.0-12.0)
[2018-10-01 21:00] LABS: Partial Thromboplastin Time 51.6 Seconds (21.0-31.0)
--- NOTE | 2018-10-01 21:09 | XRay Report ---
PA CHEST WITH LEFT-SIDED RIB SERIES CLINICAL HISTORY: Left flank hematoma. FINDINGS: A PA chest radiograph with 4 additional views from a left-sided rib series is compared to hermann giordano dated 09/08/2018. The patient is status post midline sternotomy and cardiac valve surgery. The he art is markedly enlarged. The pulmonary vasculature is noncongested. Chronic interstitial thickening is similar to previous. Bibasilar scarring/atelectasis is observed. No airspace consolidation, large pleural effusion, or pneumothorax is seen. There is no radiographic evidence of acute/distracted rib fracture on the rib series. The skeletal structures are osteopenic. The remainder of the bony thorax is grossly intact. IMPRESSION: 1. Marked cardiomegaly with no acute cardiopulmonary abnormality. 2. There is no radiographic evidence of acute/distracted left-sided rib fracture on the rib series as clinically queried. Electronically signed by: Roberto Carlos Blandon M.D. 10/01/2018 9:08 PM
[2018-10-01] MEDS: SENNA 8.6 MG TAB PO SCH (21:16)
[2018-10-01] MEDS: ROSUVASTATIN CALCIUM 10 MG TAB PO SCH (21:17)
[2018-10-01] MEDS: PANTOprazole 40 MG TAB PO SCH (21:18)
[2018-10-02] MEDS: HYDROmorphone INJ 0.5 MG/0.5 ML SYR IV PRN ×2 (00:15→15:54)
[2018-10-02] MEDS: CEFAZOLIN 1000MG 1,000 MG/7.5 ML SYR IV SCH ×2 (03:00→12:18)
[2018-10-02] MEDS: OXYCODONE HCL IR 5 MG TAB (IMMEDIATE RELEASE) PO PRN ×2 (04:54→17:58)
[2018-10-02] MEDS: LEVOTHYROXINE SODIUM 100 MCG TABLET PO SCH (04:55)
[2018-10-02 06:24] LABS: Hematocrit (blood only) 25.7 % (37-47); Hemoglobin 8.3 g/dL (12.0-16.0); Mean Corpuscular Hgb Conc 32.3 g/dL (32-36); Mean Corpuscular Volume 90.5 fL (80-100); Mean Platelet Volume 9.2 fL (7.4-10.4); Platelet Count 284 K/uL (130-400); RDW Coefficient of Variation 15.8 % (11.5-14.5); RDW Standard Deviation 51.3 fL (36.4-46.3); Red Blood Count 2.84 M/uL (4.2-5.4); White Blood Count 12.05 K/uL (4.8-10.8)
[2018-10-02 06:47] LABS: INR 1.3 (0.9-1.1); Partial Thromboplastin Ratio 2.1; Prothrombin Time 13.3 Seconds (9.0-12.0)
[2018-10-02 06:51] LABS: Partial Thromboplastin Time 57.5 Seconds (21.0-31.0)
[2018-10-02 06:52] LABS: Creatinine Clr Calc Pharmacy 39.7 ml/min; Est GFR (African American) 56.6; Est GFR (Non-African American) 48.9
[2018-10-02] MEDS: THIAMINE HCL 50 MG TABLET PO SCH (08:57)
[2018-10-02] MEDS: FUROSEMIDE 20 MG TAB PO SCH (08:57)
[2018-10-02] MEDS: FOLIC ACID 1 MG TAB PO SCH (08:57)
[2018-10-02] MEDS: ROPINIROLE HCL 1 MG TABLET PO SCH ×3 (08:57→19:53)
[2018-10-02] MEDS: AMITRIPTYLINE HCL 25 MG TAB PO SCH ×4 (08:57→19:55)
[2018-10-02] MEDS: MULTIVITAMIN TAB PO SCH (08:57)
[2018-10-02] MEDS: POTASSIUM CHLORIDE 10 MEQ TABCR PO SCH (08:57)
[2018-10-02] MEDS: METOPROLOL TARTRATE 25 MG TAB PO SCH ×2 (08:57→19:55)
[2018-10-02] MEDS: INSULIN ASPART 100 UNITS/ML 3 ML PEN SC SCH ×4 (08:58→22:20)
[2018-10-02] MEDS: MoRPHine SULFATE CR 15 MG TABCR PO SCH ×2 (09:02→19:52)
[2018-10-02] MEDS: DOCUSATE SODIUM 100 MG CAP PO SCH ×2 (09:02→20:01)
--- NOTE | 2018-10-02 10:35 | Cardiology Progress Note ---
Date of Service October 02, 2018 Assessment & Plan (1) S/P TKR (total knee replacement): (2) Acute blood loss as cause of postoperative anemia: (3) H/O mitral valve replacement with mechanical valve: (4) Rheumatic disease of heart valve: (5) Diabetes type 2, controlled: (6) History of CVA (cerebrovascular accident): (7) Atrial fibrillation: The patient's INR today is 1.3. Her hemoglobin is 8.3. She is refusing the multivitamin because it has vitamin K. I will start her on a B complex with iron supplements and folate. She is hemodynamically stable and as she is able to ambulate in the cortes I would not transfuse her unless her hemoglobin got below 8. Hopefully we are headed this bleeding problem and we can continue with the heparin until her INR is therapeutic on her warfarin. Subjective The patient had an uneventful night. She is working with physical therapy both in her room and has been walking the halls at least twice daily with assistance. Review of Systems Review of Systems: All systems reviewed & are unremarkable except as noted in HPI & below Nothing additional. Physical Exam Physical Exam: General: no acute distress and stated age Head: normocephalic, no masses, lesions, tenderness or abnormalities Eyes: conjunctiva are pink and non-injected, sclera clear Neck: supple, no adenopathy, no bruits, normal jugular venous pulse, no hepatojugular reflux Chest: normal shape and normal respiratory effort. The left upper back has ecchymosis which is not increased overnight and actually appears to be resolving. Lungs: clear to auscultation and percussion Cardiac Exam: - regular rate & rhythm, no murmurs gallops or rubs - normal S1, normal S2 Pulses: 2(+) throughout Abdomen: abdomen soft, non-tender, no abnormal masses and no hepatosplenomegaly Musculoskeletal: no gait disturbance, no joint inflammation, no deforming arthritis Extremities: Ecchymosis of the left lower extremity is resolving. The left lower extremity is less swollen. Neuro: grossly normal exam Results & Data Vital Signs (Past 12 Hours) Vital Signs Temp Pulse Resp BP Pulse Ox 10/02/18 07:49 36.9 C 104 H 18 132/69 91 10/02/18 03:37 36.9 C 78 16 116/63 94 10/02/18 00:38 36.6 C 91 H 16 121/60 96 Laboratory Results Laboratory Results - last 24 hr 10/01/18 10/01/18 10/01/18 11:18 16:18 20:20 WBC RBC Hgb Hct MCV MCH MCHC RDW Std Deviation RDW Coeff of Courtney Plt Count MPV Immature Gran % (Auto) Neut % (Auto) Lymph % (Auto) [place]aves % (Auto) Eos % (Auto) Baso % (Auto) Immature Gran # (Auto) Neut # (Auto) Lymph # (Auto) [place] # (Auto) Eos # (Auto) Baso # (Auto) PT 12.3 H INR 1.2 H APTT 51.6 H* PTT Ratio 1.9 Creatinine Est Cr Clr Drug Dosing Est GFR ( Amer) Est GFR (Non-Af Amer) POC Glucose 74 136 H Blood Type Antibody Screen 10/01/18 10/01/18 10/01/18 20:20 20:20 21:13 WBC 15.75 H RBC 2.96 L Hgb 8.7 L Hct 26.5 L MCV 89.5 MCH 29.4 MCHC 32.8 RDW Std Deviation 50.4 H RDW Coeff of Courtney 15.6 H Plt Count 303 MPV 8.8 Immature Gran % (Auto) 3.0 Neut % (Auto) 74.6 Lymph % (Auto) 12.0 Chaves % (Auto) 8.1 Eos % (Auto) 2.1 Baso % (Auto) 0.2 Immature Gran # (Auto) 0.48 H Neut # (Auto) 11.74 H Lymph # (Auto) 1.89 Chaves # (Auto) 1.28 H Eos # (Auto) 0.33 Baso # (Auto) 0.03 PT INR APTT PTT Ratio Creatinine Est Cr Clr Drug Dosing Est GFR ( Amer) Est GFR (Non-Af Amer) POC Glucose 129 H Blood Type A Positive Antibody Screen NEGATIVE 10/02/18 10/02/18 10/02/18 05:56 05:56 05:56 WBC 12.05 H RBC 2.84 L Hgb 8.3 L Hct 25.7 L MCV 90.5 MCH 29.2 MCHC 32.3 RDW Std Deviation 51.3 H RDW Coeff of Courtney 15.8 H Plt Count 284 MPV 9.2 Immature Gran % (Auto) Neut % (Auto) Lymph % (Auto) [place]aves % (Auto) Eos % (Auto) Baso % (Auto) Immature Gran # (Auto) Neut # (Auto) Lymph # (Auto) [place] # (Auto) Eos # (Auto) Baso # (Auto) PT 13.3 H INR 1.3 H APTT 57.5 H* PTT Ratio 2.1 Creatinine 1.17 Est Cr Clr Drug Dosing 39.7 Est GFR ( Amer) 56.6 Est GFR (Non-Af Amer) 48.9 POC Glucose Blood Type Antibody Screen 10/02/18 07:21 WBC RBC Hgb Hct MCV MCH MCHC RDW Std Deviation RDW Coeff of Courtney Plt Count MPV Immature Gran % (Auto) Neut % (Auto) Lymph % (Auto) [place]aves % (Auto) Eos % (Auto) Baso % (Auto) Immature Gran # (Auto) Neut # (Auto) Lymph # (Auto) [place] # (Auto) Eos # (Auto) Baso # (Auto) PT INR APTT PTT Ratio Creatinine Est Cr Clr Drug Dosing Est GFR ( Amer) Est GFR (Non-Af Amer) POC Glucose 107 H Blood Type Antibody Screen Medications Administered Current Inpatient Medications Acetaminophen (Tylenol) 1,000 mg PO Q8 PRN PRN Reason: pain/fever Stop: 10/23/18 13:59 Last Admin: 09/28/18 14:47 Dose: 1,000 mg Documented by: Amitriptyline HCl (Elavil) 25 mg PO QID [facility] Stop: 10/23/18 16:59 Last Admin: 10/02/18 08:57 Dose: 25 mg Documented by: Bisacodyl (Dulcolax) 10 mg GA DAILY PRN PRN Reason: Constipation Stop: 10/23/18 11:05 Dextrose (Dextrose 50%) 25 - 50 ml IV UD PRN; Protocol PRN Reason: Hypoglycemia Protocol Stop: 10/23/18 14:21 Diphenhydramine HCl (Benadryl Capsule) 25 mg PO Q8H PRN PRN Reason: Itching Stop: 10/23/18 11:05 Docusate Sodium (Colace) 100 mg PO BID [facility] Stop: 10/23/18 20:59 Last Admin: 10/02/18 09:02 Dose: 100 mg Documented by: Ferrous Sulfate (Feosol) 325 mg PO QAM [facility] Stop: 11/02/18 08:59 Folic Acid (Folvite) 1 mg PO QAM [facility] Stop: 10/23/18 11:05 Last Admin: 10/02/18 08:57 Dose: 1 mg Documented by: Furosemide (Lasix) 20 mg PO QAM [facility] Stop: 10/27/18 08:59 Last Admin: 10/02/18 08:57 Dose: 20 mg Documented by: Glucagon (Glucagen) 1 mg SQ UD PRN; Protocol PRN Reason: Hypoglycemia Protocol Stop: 10/23/18 14:21 Glucose (Glucose 40%) 15 - 30 gm PO UD PRN; Protocol PRN Reason: Hypoglycemia Protocol Stop: 10/23/18 14:21 Glucose (Dex4 Glucose) 4 - 8 tabs PO UD PRN; Protocol PRN Reason: Hypoglycemia Protocol Stop: 10/23/18 14:21 Hydromorphone HCl (Dilaudid) 0.5 mg IV Q4H PRN PRN Reason: Pain Stop: 10/07/18 11:05 Last Admin: 10/02/18 00:15 Dose: 0.5 mg Documented by: Heparin Sodium/Dextrose (Heparin Sodium/Dextrose) 25,000 units in 500 mls @ 15 mls/hr IV .Q24H PRISCILA; Protocol Stop: 10/30/18 09:44 Last Titration: 10/02/18 08:38 Dose: 750 units/hr, 15 mls/hr Documented by: Cefazolin Sodium (Ancef 1000mg) 1,000 mg in 7.5 mls @ 2.5 mls/min IV Q8H PRISCILA; Protocol Stop: 11/08/18 17:59 Last Admin: 10/02/18 03:00 Dose: 2.5 mls/min Documented by: Insulin Aspart (Novolog Flexpen) 0 units SC ACHS [facility] Stop: 10/23/18 20:59 Last Admin: 10/02/18 08:58 Dose: 2 units Documented by: Levothyroxine Sodium (Synthroid) 100 mcg PO DAILYBB [facility] Stop: 10/23/18 11:59 Last Admin: 10/02/18 04:55 Dose: 100 mcg Documented by: Magnesium Hydroxide (Milk Of Magnesia) 30 ml PO Q6H PRN PRN Reason: Constipation Stop: 10/23/18 11:05 Last Admin: 09/26/18 09:08 Dose: 30 ml Documented by: Metoclopramide HCl (Reglan) 10 mg IV Q6H PRN PRN Reason: Nausea And Vomiting Stop: 10/23/18 11:05 Last Admin: 09/28/18 13:25 Dose: 10 mg Documented by: Metoprolol Tartrate (Lopressor) 5 mg IV Q6 PRN PRN Reason: HR> 100 Stop: 10/26/18 17:59 Last Admin: 09/27/18 09:03 Dose: 5 mg Documented by: Metoprolol Tartrate (Lopressor) 25 mg PO BID [facility] Stop: 10/27/18 08:59 Last Admin: 10/02/18 08:57 Dose: 25 mg Documented by: Miscellaneous (Carbohydrates For Hypoglycemia) 15 - 30 gm PO UD PRN PRN Reason: Hypoglycemia Treatment Stop: 10/23/18 14:21 Morphine Sulfate (Ms Contin) 15 mg PO Q12H [facility] Stop: 10/13/18 07:59 Last Admin: 10/02/18 09:02 Dose: 15 mg Documented by: Naloxone HCl (Narcan) 0.1 mg IV Q5M PRN PRN Reason: Oversedation/Resp Depression Stop: 10/23/18 11:05 Ondansetron HCl (Zofran) 4 mg IV Q6H PRN PRN Reason: Nausea And Vomiting Stop: 10/23/18 11:05 Oxycodone HCl (Roxicodone Immediate Rel) 5 - 10 mg PO Q4H PRN PRN Reason: Pain Stop: 10/07/18 11:05 Last Admin: 10/02/18 04:54 Dose: 10 mg Documented by: Pantoprazole Sodium (Protonix) 40 mg PO HS [facility] Stop: 10/23/18 20:59 Last Admin: 10/01/18 21:18 Dose: 40 mg Documented by: Potassium Chloride (Klor-Con M10) 10 meq PO DAILY [facility] Stop: 10/24/18 08:59 Last Admin: 10/02/18 08:57 Dose: 10 meq Documented by: Ropinirole HCl (Requip) 2 mg PO TID [facility] Stop: 10/23/18 13:59 Last Admin: 10/02/18 08:57 Dose: 2 mg Documented by: Rosuvastatin Calcium (Crestor) 10 mg PO QPM [facility] Stop: 10/23/18 20:59 Last Admin: 10/01/18 21:17 Dose: 10 mg Documented by: Sennosides (Senokot) 17.2 mg PO HS [facility] Stop: 10/23/18 20:59 Last Admin: 10/01/18 21:16 Dose: 17.2 mg Documented by: Thiamine HCl (Vitamin B-1) 50 mg PO QAM [facility] Stop: 10/23/18 11:05 Last Admin: 10/02/18 08:57 Dose: 50 mg Documented by: Vitamin B Complex (Vitamin B Complex) 1 tab PO QAM [facility] Stop: 11/02/18 08:59 Warfarin Sodium (Coumadin) 7.5 mg PO DAILY@1600 [facility] Stop: 10/30/18 15:59 Last Admin: 10/01/18 17:15 Dose: 7.5 mg Documented by: (1) S/P TKR (total knee replacement) Laterality: left Qualified Code(s): Z96.652 - Presence of left artificial knee joint (2) Diabetes type 2, controlled Diabetes mellitus head of cytogenetics insulin use: without head of cytogenetics use Diabetes mellitus complication status: without complication Qualified Code(s): E11.9 - Type 2 diabetes mellitus without complications (3) Atrial fibrillation Atrial fibrillation type: unspecified Qualified Code(s): I48.91 - Unspecified atrial fibrillation
--- NOTE | 2018-10-02 12:57 | Orthopedic Progress Note ---
Date of Service October 02, 2018 Assessment & Plan (1) Degenerative joint disease of left knee: s/p L TKA POD#9 -DVT ppx: SCDs, TEDs, Coumadin per medical team, goal INR 2.5-3.5. -WBAT LLE -PT/OT -Medical hospitalist consult recs appreciated -DC planning - Hgb 8.3, INR1.3 -Left knee hemarthrosis, improving slowly, continue down current treatment plan. We will continue to monitor closely. Ice, elevation, compressive dressing/Vincent wrap. Limit bending no greater than 80-90 degrees flexion at this time. POD#2 -ancef x 24 -DVT ppx: SCDs, TEDs, restart patients home DVT meds, lovenox--> coumadin, follows coumadin clinic, plavix -WBAT LLE -PT/OT -HMV drain DC'd -XR L knee demonstrates a well aligned well fixed prosthesis without fracture/dislocation -am labs hgb 9.3, s/p 2 units PRBC, INR 1.6, Cr 1.51, at baseline -Medical hospitalist consult recs appreciated -DC planning - home with s/p L TKA POD#1 -ancef x 24 -DVT ppx: SCDs, TEDs, restart patients home DVT meds, lovenox--> coumadin, follows coumadin clinic, plavix -WBAT LLE -PT/OT -monitor drain output 50/564 -XR L knee demonstrates a well aligned well fixed prosthesis without fracture/dislocation -am labs hgb 7.3, acute post operative anemia secondary to richar-operative blood loss and dilusional effect. 2 units PRBC being tranfused today. -Medical hospitalist consult recs appreciated -DC planning - home with Subjective Post Operative Progress Note Patient seen sitting up in bed, comfortable, denies complaints, pain well controlled, no acute issues overnight, in good spirits. Review of Systems Review of Systems: All systems reviewed & are unremarkable except as noted in HPI & below Constitutional: as per Subjective / HPI Physical Exam Physical Exam: LLE NVSI +EHL/FHL/TA/GS SILT grossly, +2 DP pulse, compartments soft NT, incision cdi, +hemarthrosis - stable, +eccymosis - improving Constitutional: WD/WN, vitals as above Results & Data Vital Signs (Past 12 Hours) Vital Signs Temp Pulse Pulse Resp BP Pulse Ox 10/02/18 11:40 37.1 C 84 18 121/61 96 10/02/18 08:00 75 10/02/18 07:49 36.9 C 104 H 18 132/69 91 10/02/18 03:37 36.9 C 78 16 116/63 94 (1) Degenerative joint disease of left knee Osteoarthritis type: unspecified Qualified Code(s): M17.12 - Unilateral primary osteoarthritis, left knee
--- NOTE | 2018-10-02 15:36 | Hospitalist Progress Note ---
Date of Service October 02, 2018 Assessment & Plan (1) Hemarthrosis involving knee joint: Operation Date: 09/23/18 Left Total Knee Arthroplasty(Left) by Dr. Cormier with postoperative complication of left knee hemarthosis secondary to being on multiple anticoagulants because of mechanical mitral valve -Ice, elevation, compressive dressing/Vincent wrap. Limit bending no greater than 80-90 degrees flexion at this time. (2) Pain, joint, knee, left: pain is controlled continue pain medications (3) S/P TKR (total knee replacement): Operation Date: 09/23/18 Left Total Knee Arthroplasty(Left) by Dr. Cormier (4) Degenerative joint disease of left knee: Operation Date: 09/23/18 Left Total Knee Arthroplasty(Left) by Dr. Cormier (5) A-fib: - history of chronic a. fib -rate control with metoprolol (6) H/O mitral valve replacement with mechanical valve: -Acute hemarthrosis noted at around left knee joint on this admission -Patient was on multiple anticoagulation at the time (Plavix, Lovenox subcu discontinued) -during this hospital stay patient has received 4 units of PRBC -initially patient's INR was reversed but because of presence of mechanical mitral valve, patient has been resumed on coumadin with heparin IV with aims of trying to get back to therapeutic INR -left leg swelling is still present and in VINCENT dressing but as per patient is reduced in size -patient has left flank bruising noted on 10/01/18 while on coumadin and heparin drip. There is no radiographic evidence of acute/distracted left-sided rib fracture on the rib series -continue to current coumadin dosing with heparin drip to try to increase INR to goal INR 2.5 of 3.5 - currently INR is 1.3 and Hgb is above 8 (7) HTN (hypertension): -Continue metoprolol (8) Diabetes: -hgb a1c 5.8 08/2018 -diet controlled at home -Novolog per protocol while hospitalized (9) Acute blood loss as cause of postoperative anemia: -Acute hemarthrosis noted at around left knee joint on this admission -Patient was on multiple anticoagulation at the time (Plavix, Lovenox subcu discontinued) -during this hospital stay patient has received 4 units of PRBC -initially patient's INR was reversed but because of presence of mechanical mitral valve, patient has been resumed on coumadin with heparin IV with aims of trying to get back to therapeutic INR -left leg swelling is still present and in VINCENT dressing but as per patient is reduced in size -patient has left flank bruising noted on 10/01/18 while on coumadin and heparin drip. There is no radiographic evidence of acute/distracted left-sided rib fracture on the rib series -continue to current coumadin dosing with heparin drip to try to increase INR to goal INR 2.5 of 3.5 - currently INR is 1.3 and Hgb is above 8 (10) Coronary artery disease: -stable, no reports of chest pain/shortness of breath or angina symptom -continue beta marjorie, statin, -Plavix kept on hold for ongoing postop bleeding complication (11) CKD (chronic kidney disease), stage III: -stable renal function (12) Hypothyroidism: - Continue levothyroxine (13) GERD (gastroesophageal reflux disease): - continue PPI (14) DVT prophylaxis: -on systemic anticoagulation of coumadin and IV heparin (15) Leg edema: Individual left lower extremity edema noted, Due to inflammation/diffuse ecchymosis from left knee hemarthrosis patient has been on antibiotics of Vanomycin and Zosyn and then switched to Cefazolin. will stop antibiotics on 10/02/18 and monitor for now CODE STATUS: Full code Subjective patient feeling comfortable. left leg in VINCENT dressing, still warm, still swollen. left flank bruising remains unchanged in size. no chest pain. no palpitations. no abdominal pain. no vomiting. no lightheadedness. no dizziness . INR 1.3 and on heparin drip with coumadin Physical Exam Constitutional: comfortable Eyes: PERRL, conjunctivae normal, anicteric sclerae EOM intact bilaterally ENMT: external ear and nose normal, oropharynx normal Neck: trachea midline, no thyromegaly normal visual inspection Respiratory: normal respiratory effort, lungs clear to auscultation Cardiovascular: Rate/Rhythm: regular rate and + irregularly irregular Gastrointestinal (Abdomen): normal bowel sounds, soft, nontender, no hepatosplenomegaly Musculoskeletal: left leg in VINCENT dressing, still warm, still swollen. left flank bruising Neurologic: PERRL, EOMI, accommodation nl, no face palsy, no dysarthria Psychiatric: A+Ox3, euthymic affect Results & Data Vital Signs (Past 12 Hours) Vital Signs Temp Pulse Pulse Resp BP Pulse Ox 10/02/18 11:40 37.1 C 84 18 121/61 96 10/02/18 08:00 75 10/02/18 07:49 36.9 C 104 H 18 132/69 91 10/02/18 03:37 36.9 C 78 16 116/63 94 (1) Hemarthrosis involving knee joint Laterality: left Qualified Code(s): M25.062 - Hemarthrosis, left knee (2) S/P TKR (total knee replacement) Laterality: left Qualified Code(s): Z96.652 - Presence of left artificial knee joint (3) Degenerative joint disease of left knee Osteoarthritis type: unspecified Qualified Code(s): M17.12 - Unilateral primary osteoarthritis, left knee (4) A-fib Atrial fibrillation type: chronic Qualified Code(s): I48.2 - Chronic atrial fibrillation (5) HTN (hypertension) Hypertension type: unspecified Qualified Code(s): I10 - Essential (primary) hypertension (6) Diabetes Diabetes mellitus type: type 2 Diabetes mellitus senior living insulin use: without senior living use Diabetes mellitus complication status: without complication Qualified Code(s): E11.9 - Type 2 diabetes mellitus without complications (7) Coronary artery disease Coronary Disease-Associated Artery/Lesion type: [place] artery [place] vs. transplanted heart: [place] heart Associated angina: without angina Qualified Code(s): I25.10 - Atherosclerotic heart disease of [place] coronary artery without angina pectoris (8) Hypothyroidism Hypothyroidism type: postablative Qualified Code(s): E89.0 - Postprocedural hypothyroidism (9) GERD (gastroesophageal reflux disease) Esophagitis presence: without esophagitis Qualified Code(s): K21.9 - Gastro- esophageal reflux disease without esophagitis
[2018-10-02] MEDS: WARFARIN SOD 7.5 MG TAB PO SCH (17:55)
[2018-10-02] MEDS: HEPARIN SODIUM/DEXTROSE 25,000 UNITS/500 ML BAG IV SCH (17:56)
[2018-10-02] MEDS: ROSUVASTATIN CALCIUM 10 MG TAB PO SCH (19:54)
[2018-10-02] MEDS: SENNA 8.6 MG TAB PO SCH (19:54)
[2018-10-02] MEDS: PANTOprazole 40 MG TAB PO SCH (19:59)
[2018-10-03] MEDS: OXYCODONE HCL IR 5 MG TAB (IMMEDIATE RELEASE) PO PRN ×5 (00:35→22:09)
[2018-10-03] MEDS: LEVOTHYROXINE SODIUM 100 MCG TABLET PO SCH (04:58)
[2018-10-03 06:26] LABS: Basophils # (auto) 0.03 K/uL (0-0.2); Basophils % (auto) 0.2 %; Eosinophils # (auto) 0.26 K/uL (0-0.5); Eosinophils % (auto) 2.1 %; Hematocrit (blood only) 25.2 % (37-47); Hemoglobin 8.1 g/dL (12.0-16.0); Immature Granulocytes # (auto) 0.38 K/uL (0.00-0.02); Immature Granulocytes % (auto) 3.1 %; Lymphocytes % (auto) 11.4 %; Mean Corpuscular Hgb Conc 32.1 g/dL (32-36); Mean Platelet Volume 9.3 fL (7.4-10.4); Monocytes # (auto) 0.89 K/uL (0.11-0.59); Monocytes % (auto) 7.3 %; Neutrophils # (auto) 9.27 K/uL (1.4-6.5); Neutrophils % (auto) 75.9 %; Platelet Count 317 K/uL (130-400); RDW Coefficient of Variation 15.9 % (11.5-14.5); RDW Standard Deviation 52.9 fL (36.4-46.3); Red Blood Count 2.77 M/uL (4.2-5.4); White Blood Count 12.23 K/uL (4.8-10.8)
[2018-10-03 06:48] LABS: INR 1.5 (0.9-1.1); Partial Thromboplastin Ratio 2.4; Prothrombin Time 14.8 Seconds (9.0-12.0)
[2018-10-03 06:50] LABS: Partial Thromboplastin Time 66.2 Seconds (21.0-31.0)
[2018-10-03 06:56] LABS: Albumin Level 2.6 gm/dl (3.4-5.0); BUN Creatinine Ratio 11.4 (10-20); Est GFR (African American) 62.4; Est GFR (Non-African American) 53.8
[2018-10-03 06:59] LABS: Albumin Globulin Ratio 0.7 (0.9-2); Bilirubin,Total 1.3 mg/dl (0.2-1); Globulin 3.7 gm/dl (2.5-4.0); Total Protein 6.3 gm/dl (6.4-8.2)
[2018-10-03] MEDS: FOLIC ACID 1 MG TAB PO SCH (08:15)
[2018-10-03] MEDS: THIAMINE HCL 50 MG TABLET PO SCH (08:15)
[2018-10-03] MEDS: AMITRIPTYLINE HCL 25 MG TAB PO SCH ×4 (08:15→22:09)
[2018-10-03] MEDS: FERROUS SULFATE 325 MG TAB PO SCH (08:15)
[2018-10-03] MEDS: VITAMIN B COMPLEX TAB PO SCH (08:15)
[2018-10-03] MEDS: METOPROLOL TARTRATE 25 MG TAB PO SCH ×2 (08:15→19:57)
[2018-10-03] MEDS: ROPINIROLE HCL 1 MG TABLET PO SCH ×3 (08:15→19:57)
[2018-10-03] MEDS: FUROSEMIDE 20 MG TAB PO SCH (08:15)
[2018-10-03] MEDS: POTASSIUM CHLORIDE 10 MEQ TABCR PO SCH (08:15)
[2018-10-03] MEDS: INSULIN ASPART 100 UNITS/ML 3 ML PEN SC SCH ×4 (08:18→20:52)
[2018-10-03] MEDS: MoRPHine SULFATE CR 15 MG TABCR PO SCH ×2 (08:18→19:58)
[2018-10-03] MEDS: DOCUSATE SODIUM 100 MG CAP PO SCH ×2 (08:18→19:57)
--- NOTE | 2018-10-03 09:52 | Cardiology Progress Note ---
Date of Service October 03, 2018 Assessment & Plan (1) S/P TKR (total knee replacement): (2) Acute blood loss as cause of postoperative anemia: (3) H/O mitral valve replacement with mechanical valve: (4) Rheumatic disease of heart valve: (5) Diabetes type 2, controlled: (6) History of CVA (cerebrovascular accident): (7) Atrial fibrillation: INR today is 1.5. Her hemoglobin is now 8.1. No additional bleeding noted. Continue supportive care. If her hemoglobin drops below 8 then we may have to consider a blood transfusion. Subjective Uneventful night. The patient has been ambulating without difficulty. She has no new cardiac complaints. Review of Systems Review of Systems: All systems reviewed & are unremarkable except as noted in HPI & below Nothing additional to add. Physical Exam Physical Exam: General: no acute distress and stated age Head: normocephalic, no masses, lesions, tenderness or abnormalities Eyes: conjunctiva are pink and non-injected, sclera clear Neck: supple, no adenopathy, no bruits, normal jugular venous pulse, no hepatojugular reflux Chest: normal shape and normal respiratory effort, ecchymosis along the left lateral chest appears to be resolving. Lungs: clear to auscultation and percussion Cardiac Exam: - irregular rate & rhythm, no murmurs gallops or rubs -mechanical S1 Pulses: 2(+) throughout Abdomen: abdomen soft, non-tender, no abnormal masses and no hepatosplenomegaly Musculoskeletal: no gait disturbance, no joint inflammation, no deforming arthritis Extremities: no edema and no cyanosis, left lower extremity is bandaged but appears to be less swollen. Neuro: grossly normal exam Results & Data Vital Signs (Past 12 Hours) Vital Signs Temp Pulse Pulse Resp BP BP Pulse Ox 10/03/18 08:00 83 10/03/18 07:14 37 C 81 20 115/64 94 10/03/18 03:46 37.1 C 82 17 122/62 94 10/02/18 23:45 37.0 C 102 H 17 134/60 96 Laboratory Results Laboratory Results - last 24 hr 10/02/18 10/02/18 10/02/18 11:09 16:36 20:09 WBC RBC Hgb Hct MCV MCH MCHC RDW Std Deviation RDW Coeff of Courtney Plt Count MPV Immature Gran % (Auto) Neut % (Auto) Lymph % (Auto) [place] % (Auto) Eos % (Auto) Baso % (Auto) Immature Gran # (Auto) Neut # (Auto) Lymph # (Auto) [place] # (Auto) Eos # (Auto) Baso # (Auto) PT INR APTT PTT Ratio Sodium Potassium Chloride Carbon Dioxide Anion Gap BUN Creatinine Est Cr Clr Drug Dosing Est GFR ( Amer) Est GFR (Non-Af Amer) BUN/Creatinine Ratio Glucose POC Glucose 112 H 119 H 96 Calcium Total Bilirubin AST ALT Alkaline Phosphatase Total Protein Albumin Globulin Albumin/Globulin Ratio 10/03/18 10/03/18 10/03/18 06:08 06:08 06:08 WBC 12.23 H RBC 2.77 L Hgb 8.1 L Hct 25.2 L MCV 91.0 MCH 29.2 MCHC 32.1 RDW Std Deviation 52.9 H RDW Coeff of Courtney 15.9 H Plt Count 317 MPV 9.3 Immature Gran % (Auto) 3.1 Neut % (Auto) 75.9 Lymph % (Auto) 11.4 [place] % (Auto) 7.3 Eos % (Auto) 2.1 Baso % (Auto) 0.2 Immature Gran # (Auto) 0.38 H Neut # (Auto) 9.27 H Lymph # (Auto) 1.40 [place] # (Auto) 0.89 H Eos # (Auto) 0.26 Baso # (Auto) 0.03 PT 14.8 H INR 1.5 H APTT 66.2 H* PTT Ratio 2.4 Sodium 134 L Potassium 4.0 Chloride 97 L Carbon Dioxide 32 Anion Gap 5.0 BUN 12 Creatinine 1.08 Est Cr Clr Drug Dosing 43.0 Est GFR ( Amer) 62.4 Est GFR (Non-Af Amer) 53.8 BUN/Creatinine Ratio 11.4 Glucose 103 H POC Glucose Calcium 9.0 Total Bilirubin 1.3 H AST 40 H ALT 18 Alkaline Phosphatase 132 H Total Protein 6.3 L Albumin 2.6 L Globulin 3.7 Albumin/Globulin Ratio 0.7 L 10/03/18 07:16 WBC RBC Hgb Hct MCV MCH MCHC RDW Std Deviation RDW Coeff of Courtney Plt Count MPV Immature Gran % (Auto) Neut % (Auto) Lymph % (Auto) [place] % (Auto) Eos % (Auto) Baso % (Auto) Immature Gran # (Auto) Neut # (Auto) Lymph # (Auto) [place] # (Auto) Eos # (Auto) Baso # (Auto) PT INR APTT PTT Ratio Sodium Potassium Chloride Carbon Dioxide Anion Gap BUN Creatinine Est Cr Clr Drug Dosing Est GFR ( Amer) Est GFR (Non-Af Amer) BUN/Creatinine Ratio Glucose POC Glucose 105 H Calcium Total Bilirubin AST ALT Alkaline Phosphatase Total Protein Albumin Globulin Albumin/Globulin Ratio Medications Administered Current Inpatient Medications Acetaminophen (Tylenol) 1,000 mg PO Q8 PRN PRN Reason: pain/fever Stop: 10/23/18 13:59 Last Admin: 09/28/18 14:47 Dose: 1,000 mg Documented by: Amitriptyline HCl (Elavil) 25 mg PO QID [facility] Stop: 10/23/18 16:59 Last Admin: 10/03/18 08:15 Dose: 25 mg Documented by: Bisacodyl (Dulcolax) 10 mg [place] DAILY PRN PRN Reason: Constipation Stop: 10/23/18 11:05 Dextrose (Dextrose 50%) 25 - 50 ml IV UD PRN; Protocol PRN Reason: Hypoglycemia Protocol Stop: 10/23/18 14:21 Diphenhydramine HCl (Benadryl Capsule) 25 mg PO Q8H PRN PRN Reason: Itching Stop: 10/23/18 11:05 Docusate Sodium (Colace) 100 mg PO BID [facility] Stop: 10/23/18 20:59 Last Admin: 10/03/18 08:18 Dose: 100 mg Documented by: Ferrous Sulfate (Feosol) 325 mg PO QAM [facility] Stop: 11/02/18 08:59 Last Admin: 10/03/18 08:15 Dose: 325 mg Documented by: Folic Acid (Folvite) 1 mg PO QAM [facility] Stop: 10/23/18 11:05 Last Admin: 10/03/18 08:15 Dose: 1 mg Documented by: Furosemide (Lasix) 20 mg PO QAM [facility] Stop: 10/27/18 08:59 Last Admin: 10/03/18 08:15 Dose: 20 mg Documented by: Glucagon (Glucagen) 1 mg SQ UD PRN; Protocol PRN Reason: Hypoglycemia Protocol Stop: 10/23/18 14:21 Glucose (Glucose 40%) 15 - 30 gm PO UD PRN; Protocol PRN Reason: Hypoglycemia Protocol Stop: 10/23/18 14:21 Glucose (Dex4 Glucose) 4 - 8 tabs PO UD PRN; Protocol PRN Reason: Hypoglycemia Protocol Stop: 10/23/18 14:21 Hydromorphone HCl (Dilaudid) 0.5 mg IV Q4H PRN PRN Reason: Pain Stop: 10/07/18 11:05 Last Admin: 10/02/18 15:54 Dose: 0.5 mg Documented by: Heparin Sodium/Dextrose (Heparin Sodium/Dextrose) 25,000 units in 500 mls @ 15 mls/hr IV .Q24H PRISCILA; Protocol Stop: 10/30/18 09:44 Last Titration: 10/03/18 06:55 Dose: 750 units/hr, 15 mls/hr Documented by: Insulin Aspart (Novolog Flexpen) 0 units SC ACHS [facility] Stop: 10/23/18 20:59 Last Admin: 10/03/18 08:18 Dose: 5 units Documented by: Levothyroxine Sodium (Synthroid) 100 mcg PO DAILYBB [facility] Stop: 10/23/18 11:59 Last Admin: 10/03/18 04:58 Dose: 100 mcg Documented by: Magnesium Hydroxide (Milk Of Magnesia) 30 ml PO Q6H PRN PRN Reason: Constipation Stop: 10/23/18 11:05 Last Admin: 09/26/18 09:08 Dose: 30 ml Documented by: Metoclopramide HCl (Reglan) 10 mg IV Q6H PRN PRN Reason: Nausea And Vomiting Stop: 10/23/18 11:05 Last Admin: 09/28/18 13:25 Dose: 10 mg Documented by: Metoprolol Tartrate (Lopressor) 5 mg IV Q6 PRN PRN Reason: HR> 100 Stop: 10/26/18 17:59 Last Admin: 09/27/18 09:03 Dose: 5 mg Documented by: Metoprolol Tartrate (Lopressor) 25 mg PO BID [facility] Stop: 10/27/18 08:59 Last Admin: 10/03/18 08:15 Dose: 25 mg Documented by: Miscellaneous (Carbohydrates For Hypoglycemia) 15 - 30 gm PO UD PRN PRN Reason: Hypoglycemia Treatment Stop: 10/23/18 14:21 Morphine Sulfate (Ms Contin) 15 mg PO Q12H [facility] Stop: 10/13/18 07:59 Last Admin: 10/03/18 08:18 Dose: 15 mg Documented by: Naloxone HCl (Narcan) 0.1 mg IV Q5M PRN PRN Reason: Oversedation/Resp Depression Stop: 10/23/18 11:05 Ondansetron HCl (Zofran) 4 mg IV Q6H PRN PRN Reason: Nausea And Vomiting Stop: 10/23/18 11:05 Oxycodone HCl (Roxicodone Immediate Rel) 5 - 10 mg PO Q4H PRN PRN Reason: Pain Stop: 10/07/18 11:05 Last Admin: 10/03/18 04:58 Dose: 10 mg Documented by: Pantoprazole Sodium (Protonix) 40 mg PO [facility] Stop: 10/23/18 20:59 Last Admin: 10/02/18 19:59 Dose: 40 mg Documented by: Potassium Chloride (Klor-Con M10) 10 meq PO DAILY [facility] Stop: 10/24/18 08:59 Last Admin: 10/03/18 08:15 Dose: 10 meq Documented by: Ropinirole HCl (Requip) 2 mg PO TID [facility] Stop: 10/23/18 13:59 Last Admin: 10/03/18 08:15 Dose: 2 mg Documented by: Rosuvastatin Calcium (Crestor) 10 mg PO QPM [facility] Stop: 10/23/18 20:59 Last Admin: 10/02/18 19:54 Dose: 10 mg Documented by: Sennosides (Senokot) 17.2 mg PO [facility] Stop: 10/23/18 20:59 Last Admin: 10/02/18 19:54 Dose: 17.2 mg Documented by: Thiamine HCl (Vitamin B-1) 50 mg PO QAM [facility] Stop: 10/23/18 11:05 Last Admin: 10/03/18 08:15 Dose: 50 mg Documented by: Vitamin B Complex (Vitamin B Complex) [facility] Stop: 11/02/18 08:59 Last Admin: 10/03/18 08:15 Dose: 1 tab Documented by: Warfarin Sodium (Coumadin) 7.5 mg PO DAILY@1600 [facility] Stop: 10/30/18 15:59 Last Admin: 10/02/18 17:55 Dose: 7.5 mg Documented by: (1) S/P TKR (total knee replacement) Laterality: left Qualified Code(s): Z96.652 - Presence of left artificial knee joint (2) Diabetes type 2, controlled Diabetes mellitus assisted insulin use: without assisted use Diabetes mellitus complication status: without complication Qualified Code(s): E11.9 - Type 2 diabetes mellitus without complications (3) Atrial fibrillation Atrial fibrillation type: unspecified Qualified Code(s): I48.91 - Unspecified atrial fibrillation
[2018-10-03] MEDS: HYDROmorphone INJ 0.5 MG/0.5 ML SYR IV PRN (13:45)
[2018-10-03] MEDS: WARFARIN SOD 7.5 MG TAB PO SCH (16:02)
--- NOTE | 2018-10-03 16:14 | Hospitalist Progress Note ---
Date of Service October 03, 2018 Assessment & Plan (1) Hemarthrosis involving knee joint: Operation Date: 09/23/18 Left Total Knee Arthroplasty(Left) by Dr. Cormier with postoperative complication of left knee hemarthosis secondary to being on multiple anticoagulants because of mechanical mitral valve -Ice, elevation, compressive dressing/Vincent wrap. Limit bending no greater than 80-90 degrees flexion at this time. (2) Pain, joint, knee, left: pain is controlled continue pain medications (3) S/P TKR (total knee replacement): Operation Date: 09/23/18 Left Total Knee Arthroplasty(Left) by Dr. Cormier (4) Degenerative joint disease of left knee: Operation Date: 09/23/18 Left Total Knee Arthroplasty(Left) by Dr. Cormier (5) A-fib: - history of chronic a. fib -rate control with metoprolol (6) H/O mitral valve replacement with mechanical valve: -Acute hemarthrosis noted at around left knee joint on this admission -Patient was on multiple anticoagulation at the time (Plavix, Lovenox subcu discontinued) -during this hospital stay patient has received 4 units of PRBC -initially patient's INR was reversed but because of presence of mechanical mitral valve, patient has been resumed on coumadin with heparin IV with aims of trying to get back to therapeutic INR -left leg swelling is still present and in VINCENT dressing but as per patient is reduced in size -patient has left flank bruising noted on 10/01/18 while on coumadin and heparin drip. There is no radiographic evidence of acute/distracted left-sided rib fracture on the rib series -continue to current coumadin dosing with heparin drip to try to increase INR to goal INR 2.5 of 3.5 - currently INR 1.5. continuing on coumadin and heparin drip. Hgb 8.1. (7) HTN (hypertension): -Continue metoprolol (8) Diabetes: -hgb a1c 5.8 08/2018 -diet controlled at home -Novolog per protocol while hospitalized (9) Acute blood loss as cause of postoperative anemia: -Acute hemarthrosis noted at around left knee joint on this admission -Patient was on multiple anticoagulation at the time (Plavix, Lovenox subcu discontinued) -during this hospital stay patient has received 4 units of PRBC -initially patient's INR was reversed but because of presence of mechanical mitral valve, patient has been resumed on coumadin with heparin IV with aims of trying to get back to therapeutic INR -left leg swelling is still present and in VINCENT dressing but as per patient is reduced in size -patient has left flank bruising noted on 10/01/18 while on coumadin and heparin drip. There is no radiographic evidence of acute/distracted left-sided rib fracture on the rib series -continue to current coumadin dosing with heparin drip to try to increase INR to goal INR 2.5 of 3.5 - currently INR 1.5. continuing on coumadin and heparin drip. Hgb 8.1. (10) Coronary artery disease: -stable, no reports of chest pain/shortness of breath or angina symptom -continue beta marjorie, statin, -Plavix kept on hold for ongoing postop bleeding complication (11) CKD (chronic kidney disease), stage III: -stable renal function (12) Hypothyroidism: - Continue levothyroxine (13) GERD (gastroesophageal reflux disease): - continue PPI (14) DVT prophylaxis: -on systemic anticoagulation of coumadin and IV heparin (15) Leg edema: Individual left lower extremity edema noted, Due to inflammation/diffuse ecchymosis from left knee hemarthrosis patient has been on antibiotics of Vanomycin and Zosyn and then switched to Cefazolin. stopped antibiotics on 10/02/18 and monitor for now CODE STATUS: Full code Subjective left flank hematoma unchanged in area of the skin. left leg remain in VINCENT dressing. INR 1.5. continuing on coumadin and heparin drip. Hgb 8.1. no gross bleeding from orifices as per patient. breathing on room air. no shortness of breath. no chest pain. no palpitations Physical Exam Constitutional: comfortable Eyes: PERRL, conjunctivae normal, anicteric sclerae EOM intact bilaterally ENMT: external ear and nose normal, oropharynx normal Neck: trachea midline, no thyromegaly normal visual inspection Respiratory: normal respiratory effort, lungs clear to auscultation Cardiovascular: Rate/Rhythm: regular rate and + irregularly irregular Gastrointestinal (Abdomen): normal bowel sounds, soft, nontender, no hepatosplenomegaly Musculoskeletal: Head/Neck/Chest: normocephalic and head atraumatic left flank hematoma unchanged in area of the skin. left leg remain in VINCENT dressing Neurologic: PERRL, EOMI, accommodation nl, no face palsy, no dysarthria Psychiatric: A+Ox3, euthymic affect Results & Data Vital Signs (Past 12 Hours) Vital Signs Temp Pulse Pulse Resp BP BP Pulse Ox 10/03/18 11:10 37.2 C 90 16 123/73 94 10/03/18 08:00 83 10/03/18 07:14 37 C 81 20 115/64 94 (1) Hemarthrosis involving knee joint Laterality: left Qualified Code(s): M25.062 - Hemarthrosis, left knee (2) S/P TKR (total knee replacement) Laterality: left Qualified Code(s): Z96.652 - Presence of left artificial knee joint (3) Degenerative joint disease of left knee Osteoarthritis type: unspecified Qualified Code(s): M17.12 - Unilateral primary osteoarthritis, left knee (4) A-fib Atrial fibrillation type: chronic Qualified Code(s): I48.2 - Chronic atrial fibrillation (5) HTN (hypertension) Hypertension type: unspecified Qualified Code(s): I10 - Essential (primary) hypertension (6) Diabetes Diabetes mellitus type: type 2 Diabetes mellitus extermination 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 transplanted heart: [place] heart Associated angina: without angina Qualified Code(s): I25.10 - Atherosclerotic heart disease of [place] coronary artery without angina pectoris (8) Hypothyroidism Hypothyroidism type: postablative Qualified Code(s): E89.0 - Postprocedural hypothyroidism (9) GERD (gastroesophageal reflux disease) Esophagitis presence: without esophagitis Qualified Code(s): K21.9 - Gastro- esophageal reflux disease without esophagitis
[2018-10-03] MEDS: SENNA 8.6 MG TAB PO SCH (19:57)
[2018-10-03] MEDS: PANTOprazole 40 MG TAB PO SCH (19:57)
[2018-10-03] MEDS: ROSUVASTATIN CALCIUM 10 MG TAB PO SCH (19:58)
[2018-10-03] MEDS: HEPARIN SODIUM/DEXTROSE 25,000 UNITS/500 ML BAG IV SCH (22:15)
[2018-10-04] MEDS: OXYCODONE HCL IR 5 MG TAB (IMMEDIATE RELEASE) PO PRN ×3 (03:58→23:36)
[2018-10-04 05:47] LABS: Basophils # (auto) 0.04 K/uL (0-0.2); Basophils % (auto) 0.3 %; Eosinophils # (auto) 0.28 K/uL (0-0.5); Eosinophils % (auto) 2.4 %; Hematocrit (blood only) 26.2 % (37-47); Hemoglobin 8.5 g/dL (12.0-16.0); Immature Granulocytes # (auto) 0.38 K/uL (0.00-0.02); Immature Granulocytes % (auto) 3.3 %; Lymphocytes # (auto) 1.46 K/uL (1.2-3.4); Lymphocytes % (auto) 12.6 %; Mean Corpuscular Hgb Conc 32.4 g/dL (32-36); Monocytes # (auto) 0.94 K/uL (0.11-0.59); Monocytes % (auto) 8.1 %; Neutrophils # (auto) 8.53 K/uL (1.4-6.5); Neutrophils % (auto) 73.3 %; Platelet Count 367 K/uL (130-400); RDW Coefficient of Variation 15.8 % (11.5-14.5); RDW Standard Deviation 52.4 fL (36.4-46.3); Red Blood Count 2.88 M/uL (4.2-5.4); White Blood Count 11.63 K/uL (4.8-10.8)
[2018-10-04 06:05] LABS: INR 1.7 (0.9-1.1); Partial Thromboplastin Ratio 2.5; Prothrombin Time 16.4 Seconds (9.0-12.0)
[2018-10-04 06:08] LABS: Partial Thromboplastin Time 68.5 Seconds (21.0-31.0)
[2018-10-04] MEDS: LEVOTHYROXINE SODIUM 100 MCG TABLET PO SCH (06:29)
[2018-10-04] MEDS: MoRPHine SULFATE CR 15 MG TABCR PO SCH ×2 (08:06→20:15)
[2018-10-04] MEDS: INSULIN ASPART 100 UNITS/ML 3 ML PEN SC SCH ×4 (08:08→20:06)
[2018-10-04] MEDS: FERROUS SULFATE 325 MG TAB PO SCH (08:09)
[2018-10-04] MEDS: AMITRIPTYLINE HCL 25 MG TAB PO SCH ×4 (08:09→20:09)
[2018-10-04] MEDS: THIAMINE HCL 50 MG TABLET PO SCH (08:10)
[2018-10-04] MEDS: VITAMIN B COMPLEX TAB PO SCH (08:10)
[2018-10-04] MEDS: POTASSIUM CHLORIDE 10 MEQ TABCR PO SCH (08:10)
[2018-10-04] MEDS: FUROSEMIDE 20 MG TAB PO SCH (08:10)
[2018-10-04] MEDS: ROPINIROLE HCL 1 MG TABLET PO SCH ×3 (08:10→20:10)
[2018-10-04] MEDS: FOLIC ACID 1 MG TAB PO SCH (08:10)
[2018-10-04] MEDS: METOPROLOL TARTRATE 25 MG TAB PO SCH ×2 (08:11→20:09)
[2018-10-04] MEDS: DOCUSATE SODIUM 100 MG CAP PO SCH ×2 (08:13→20:15)
--- NOTE | 2018-10-04 10:21 | Hospitalist Progress Note ---
Date of Service October 04, 2018 Assessment & Plan (1) Hemarthrosis involving knee joint: Operation Date: 09/23/18 Left Total Knee Arthroplasty(Left) by Dr. Cormier with postoperative complication of left knee hemarthosis secondary to being on multiple anticoagulants because of mechanical mitral valve -Ice, elevation, compressive dressing/Vincent wrap. Limit bending no greater than 80-90 degrees flexion at this time. (2) Pain, joint, knee, left: pain is controlled continue pain medications (3) S/P TKR (total knee replacement): Operation Date: 09/23/18 Left Total Knee Arthroplasty(Left) by Dr. Cormier (4) Degenerative joint disease of left knee: Operation Date: 09/23/18 Left Total Knee Arthroplasty(Left) by Dr. Cormier (5) A-fib: - history of chronic a. fib -rate control with metoprolol (6) H/O mitral valve replacement with mechanical valve: -Acute hemarthrosis noted at around left knee joint on this admission -Patient was on multiple anticoagulation at the time (Plavix, Lovenox subcu discontinued) -during this hospital stay patient has received 4 units of PRBC -initially patient's INR was reversed but because of presence of mechanical mitral valve, patient has been resumed on coumadin with heparin IV with aims of trying to get back to therapeutic INR -left leg swelling is still present and in VINCENT dressing but as per patient is reduced in size -patient has left flank bruising noted on 10/01/18 while on coumadin and heparin drip. There is no radiographic evidence of acute/distracted left-sided rib fracture on the rib series -continue to current coumadin dosing with heparin drip to try to increase INR to goal INR 2.5 of 3.5 - currently INR 1.7. continuing on coumadin and heparin drip. Hgb 8.5. (7) HTN (hypertension): -Continue metoprolol (8) Diabetes: -hgb a1c 5.8 08/2018 -diet controlled at home -Novolog per protocol while hospitalized (9) Acute blood loss as cause of postoperative anemia: -Acute hemarthrosis noted at around left knee joint on this admission -Patient was on multiple anticoagulation at the time (Plavix, Lovenox subcu discontinued) -during this hospital stay patient has received 4 units of PRBC -initially patient's INR was reversed but because of presence of mechanical mitral valve, patient has been resumed on coumadin with heparin IV with aims of trying to get back to therapeutic INR -left leg swelling is still present and in VINCENT dressing but as per patient is reduced in size -patient has left flank bruising noted on 10/01/18 while on coumadin and heparin drip. There is no radiographic evidence of acute/distracted left-sided rib fracture on the rib series -continue to current coumadin dosing with heparin drip to try to increase INR to goal INR 2.5 of 3.5 - currently INR 1.7. continuing on coumadin and heparin drip. Hgb 8.5. (10) Coronary artery disease: -stable, no reports of chest pain/shortness of breath or angina symptom -continue beta marjorie, statin, -Plavix kept on hold for ongoing postop bleeding complication (11) CKD (chronic kidney disease), stage III: -stable renal function (12) Hypothyroidism: - Continue levothyroxine (13) GERD (gastroesophageal reflux disease): - continue PPI (14) DVT prophylaxis: -on systemic anticoagulation of coumadin and IV heparin (15) Leg edema: Individual left lower extremity edema noted, Due to inflammation/diffuse ecchymosis from left knee hemarthrosis patient had been on antibiotics of Vanomycin and Zosyn and then switched to Cefazolin, stopped antibiotics on 10/02/18 and continue to monitor off antibiotics CODE STATUS: Full code Subjective left flank hematoma/ecchymosis appears to be improving. left leg in VINCENT dressing and appears somewhat less swollen. patient with chronic atrial fibrillation. on room air. no shortness of breath. no palpitations. no chest pain. no dizziness. no lightheadedness. pleasant and cooperative on exam Physical Exam Constitutional: comfortable Eyes: PERRL, conjunctivae normal, anicteric sclerae EOM intact bilaterally ENMT: external ear and nose normal, oropharynx normal Neck: trachea midline, no thyromegaly normal visual inspection Respiratory: normal respiratory effort, lungs clear to auscultation Cardiovascular: Rate/Rhythm: regular rate and + irregularly irregular Gastrointestinal (Abdomen): normal bowel sounds, soft, nontender, no hepatosplenomegaly Musculoskeletal: Head/Neck/Chest: normocephalic and head atraumatic Neurologic: PERRL, EOMI, accommodation nl, no face palsy, no dysarthria Psychiatric: A+Ox3, euthymic affect Results & Data Vital Signs (Past 12 Hours) Vital Signs Temp Pulse Pulse Resp BP Pulse Ox 10/04/18 04:35 36.9 C 97 H 18 124/63 97 10/04/18 00:00 92 H 10/03/18 23:40 37.0 C 91 H 18 116/76 97 (1) Hemarthrosis involving knee joint Laterality: left Qualified Code(s): M25.062 - Hemarthrosis, left knee (2) S/P TKR (total knee replacement) Laterality: left Qualified Code(s): Z96.652 - Presence of left artificial knee joint (3) Degenerative joint disease of left knee Osteoarthritis type: unspecified Qualified Code(s): M17.12 - Unilateral primary osteoarthritis, left knee (4) A-fib Atrial fibrillation type: chronic Qualified Code(s): I48.2 - Chronic atrial fibrillation (5) HTN (hypertension) Hypertension type: unspecified Qualified Code(s): I10 - Essential (primary) hypertension (6) Diabetes Diabetes mellitus type: type 2 Diabetes mellitus 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 transplanted heart: [place] heart Associated angina: without angina Qualified Code(s): I25.10 - Atherosclerotic heart disease of [place] coronary artery without angina pectoris (8) Hypothyroidism Hypothyroidism type: postablative Qualified Code(s): E89.0 - Postprocedural hypothyroidism (9) GERD (gastroesophageal reflux disease) Esophagitis presence: without esophagitis Qualified Code(s): K21.9 - Gastro- esophageal reflux disease without esophagitis
--- NOTE | 2018-10-04 11:07 | Cardiology Progress Note ---
Date of Service October 04, 2018 Assessment & Plan (1) A-fib: (2) Mitral valve replaced: (3) Hemarthrosis involving knee joint: Patient with history of remote mechanical mitral valve replacement with a single tilting-disc prosthesis, 25 years ago. Her primary magazine supervisor is Dr. Molina of our practice. I had actually seen her in consultation when she presented with TIA type symptoms in May,. Her INR has been therapeutic at that time, and clopidogrel had been added to her medication regimen. This admission, she developed postoperative anemia while on a Lovenox to Coumadin bridge, and was also receiving clopidogrel. She developed a left flank hematoma, left leg hematoma/left prosthetic knee hematosis after her knee replacement, and required transfusion of 4 units of packed red blood cells. She is now on an unfractioned heparin infusion, Coumadin has been reinitiated having previously been reversed with vitamin K, and her clopidogrel has been discontinued. INR today is 1.7, up from 1.5, PTT is therapeutic at 68.5 seconds. Hemoglobin stable 8.5, up from 8.1 yesterday. Continue Coumadin 7.5 mg daily. Continue unfractioned heparin bridge, goal INR is 2.5-3.5 for this prosthesis. Telemetry reveals rate controlled atrial fibrillation in the range of 80 bpm, this is a chronic finding. Subjective Chief complaint: Follow-up atrial fibrillation, history of remote mechanical mitral valve replacement, anemia, postoperative left flank hematoma, postoperative left hemarthrosis Subjective: Patient feeling well. She is in the bedside chair. Review of Systems Review of Systems: All systems reviewed & are unremarkable except as noted in HPI & below Physical Exam Physical Exam: Temp Pulse Resp BP Pulse Ox 37.0 C 109 H 17 131/52 L 96 10/04/18 10:44 10/04/18 10:47 10/04/18 10:44 10/04/18 10:44 10/04/18 10:44 Respiratory: normal respiratory effort, lungs clear to auscultation Cardiovascular: Rate/Rhythm: + irregularly irregular Vessels: no JVD Extremities: no edema Prosthetic heart sounds noted and within normal limits Gastrointestinal (Abdomen): normal bowel sounds, soft, nontender, no hepatosplenomegaly Musculoskeletal: Left lower leg wrapped with compression bandage, swelling above, below, and at knee level improving per patient subjective report Skin: Left flank hematoma/area of ecchymosis, seemingly trending toward improvement Results & Data Vital Signs (Past 12 Hours) Vital Signs Temp Pulse Pulse Resp BP BP Pulse Ox 10/04/18 10:47 109 H 10/04/18 10:44 37.0 C 107 H 17 131/52 L 96 10/04/18 04:35 36.9 C 97 H 18 124/63 97 10/04/18 00:00 92 H 10/03/18 23:40 37.0 C 91 H 18 116/76 97 (1) Hemarthrosis involving knee joint Laterality: left Qualified Code(s): M25.062 - Hemarthrosis, left knee
[2018-10-04] MEDS: HEPARIN SODIUM/DEXTROSE 25,000 UNITS/500 ML BAG IV SCH (11:53)
[2018-10-04 12:31] LABS: Partial Thromboplastin Ratio 2.2; Partial Thromboplastin Time 59.4 Seconds (21.0-31.0)
[2018-10-04] MEDS: WARFARIN SOD 7.5 MG TAB PO SCH (16:24)
[2018-10-04] MEDS: ACETAMINOPHEN 500 MG TAB PO PRN (18:39)
[2018-10-04] MEDS: ROSUVASTATIN CALCIUM 10 MG TAB PO SCH (20:08)
[2018-10-04] MEDS: PANTOprazole 40 MG TAB PO SCH (20:10)
[2018-10-04] MEDS: SENNA 8.6 MG TAB PO SCH (20:11)
[2018-10-05] MEDS: OXYCODONE HCL IR 5 MG TAB (IMMEDIATE RELEASE) PO PRN ×4 (04:22→20:22)
[2018-10-05] MEDS: LEVOTHYROXINE SODIUM 100 MCG TABLET PO SCH (05:51)
[2018-10-05 06:14] LABS: Basophils # (auto) 0.05 K/uL (0-0.2); Basophils % (auto) 0.5 %; Eosinophils # (auto) 0.28 K/uL (0-0.5); Eosinophils % (auto) 2.6 %; Hematocrit (blood only) 28.2 % (37-47); Immature Granulocytes # (auto) 0.31 K/uL (0.00-0.02); Immature Granulocytes % (auto) 2.8 %; Lymphocytes # (auto) 1.42 K/uL (1.2-3.4); Lymphocytes % (auto) 12.9 %; Mean Corpuscular Hgb Conc 31.9 g/dL (32-36); Mean Corpuscular Volume 91.9 fL (80-100); Mean Platelet Volume 8.9 fL (7.4-10.4); Monocytes # (auto) 0.86 K/uL (0.11-0.59); Monocytes % (auto) 7.8 %; Neutrophils # (auto) 8.06 K/uL (1.4-6.5); Neutrophils % (auto) 73.4 %; Platelet Count 411 K/uL (130-400); RDW Coefficient of Variation 16.2 % (11.5-14.5); RDW Standard Deviation 53.3 fL (36.4-46.3); Red Blood Count 3.07 M/uL (4.2-5.4); White Blood Count 10.98 K/uL (4.8-10.8)
[2018-10-05 06:35] LABS: INR 1.8 (0.9-1.1); Partial Thromboplastin Ratio 2.7; Prothrombin Time 17.9 Seconds (9.0-12.0)
[2018-10-05] MEDS: AMITRIPTYLINE HCL 25 MG TAB PO SCH ×4 (08:12→20:23)
[2018-10-05] MEDS: THIAMINE HCL 50 MG TABLET PO SCH (08:12)
[2018-10-05] MEDS: POTASSIUM CHLORIDE 10 MEQ TABCR PO SCH (08:12)
[2018-10-05] MEDS: ROPINIROLE HCL 1 MG TABLET PO SCH ×3 (08:13→20:23)
[2018-10-05] MEDS: FERROUS SULFATE 325 MG TAB PO SCH (08:13)
[2018-10-05] MEDS: FUROSEMIDE 20 MG TAB PO SCH (08:13)
[2018-10-05] MEDS: METOPROLOL TARTRATE 25 MG TAB PO SCH ×2 (08:13→20:29)
[2018-10-05] MEDS: VITAMIN B COMPLEX TAB PO SCH (08:13)
[2018-10-05] MEDS: FOLIC ACID 1 MG TAB PO SCH (08:14)
[2018-10-05] MEDS: DOCUSATE SODIUM 100 MG CAP PO SCH ×2 (08:14→20:27)
[2018-10-05] MEDS: MoRPHine SULFATE CR 15 MG TABCR PO SCH ×2 (08:16→20:23)
[2018-10-05] MEDS: INSULIN ASPART 100 UNITS/ML 3 ML PEN SC SCH ×4 (08:20→21:10)
[2018-10-05] MEDS: HEPARIN SODIUM/DEXTROSE 25,000 UNITS/500 ML BAG IV SCH (08:27)
--- NOTE | 2018-10-05 09:02 | Cardiology Progress Note ---
Date of Service October 05, 2018 Assessment & Plan (1) Hemarthrosis involving knee joint: (2) A-fib: (3) H/O mitral valve replacement with mechanical valve: Hgb stable at 9 , up from 8.5 yesterday. INR=1.8 PTT 72. Pt's home dose of coumadin is 7.5 mg alternating with 5 mg . Continue 7.5 mg daily and allow INR to come up slowly to goal of 2.5-3.5. Plavix has been discontinued. Continue prior to hospital dose of metoprolol. Increase activity as tolerated. Continue UF heparin infusion as bridge therapy. Subjective CC: follow up mechanical mitral valve replacement , post knee replacement anemia, hematoma Subjective: Patient feeling well. Rate controlled AF noted on monitor (chronic finding). Review of Systems Review of Systems: All systems reviewed & are unremarkable except as noted in HPI & below Physical Exam Physical Exam: Temp Pulse Resp BP Pulse Ox 36.6 C 78 16 118/63 97 10/05/18 07:35 10/05/18 07:35 10/05/18 07:35 10/05/18 07:35 10/05/18 07:35 Constitutional: WD/WN, vitals as above Respiratory: normal respiratory effort, lungs clear to auscultation Cardiovascular: Rate/Rhythm: + irregularly irregular Heart Sounds: normal S1 and normal S2 Vessels: no JVD Extremities: no edema prosthetic heart sounds noted Neurologic: PERRL, EOMI, accommodation nl, no face palsy, no dysarthria moves all extremities; no focal motor deficits Results & Data Vital Signs (Past 12 Hours) Vital Signs Temp Pulse Pulse Resp BP Pulse Ox 10/05/18 07:35 36.6 C 78 16 118/63 97 10/05/18 04:24 36.6 C 78 22 133/85 98 10/05/18 00:00 84 10/04/18 23:56 36.7 C 84 20 132/89 94 Medications Administered Current Inpatient Medications Acetaminophen (Tylenol) 1,000 mg PO Q8 PRN PRN Reason: pain/fever Stop: 10/23/18 13:59 Last Admin: 10/04/18 18:39 Dose: 1,000 mg Documented by: Amitriptyline HCl (Elavil) 25 mg PO QID [facility] Stop: 10/23/18 16:59 Last Admin: 10/05/18 08:12 Dose: 25 mg Documented by: Bisacodyl (Dulcolax) 10 mg [place] DAILY PRN PRN Reason: Constipation Stop: 10/23/18 11:05 Dextrose (Dextrose 50%) 25 - 50 ml IV UD PRN; Protocol PRN Reason: Hypoglycemia Protocol Stop: 10/23/18 14:21 Diphenhydramine HCl (Benadryl Capsule) 25 mg PO Q8H PRN PRN Reason: Itching Stop: 10/23/18 11:05 Docusate Sodium (Colace) 100 mg PO BID [facility] Stop: 10/23/18 20:59 Last Admin: 10/05/18 08:14 Dose: Not Given Documented by: Ferrous Sulfate (Feosol) 325 mg PO [facility] Stop: 11/02/18 08:59 Last Admin: 10/05/18 08:13 Dose: 325 mg Documented by: Folic Acid (Folvite) 1 mg PO [facility] Stop: 10/23/18 11:05 Last Admin: 10/05/18 08:14 Dose: 1 mg Documented by: Furosemide (Lasix) 20 mg PO [facility] Stop: 10/27/18 08:59 Last Admin: 10/05/18 08:13 Dose: 20 mg Documented by: Glucagon (Glucagen) 1 mg SQ UD PRN; Protocol PRN Reason: Hypoglycemia Protocol Stop: 10/23/18 14:21 Glucose (Glucose 40%) 15 - 30 gm PO UD PRN; Protocol PRN Reason: Hypoglycemia Protocol Stop: 10/23/18 14:21 Glucose (Dex4 Glucose) 4 - 8 tabs PO UD PRN; Protocol PRN Reason: Hypoglycemia Protocol Stop: 10/23/18 14:21 Hydromorphone HCl (Dilaudid) 0.5 mg IV Q4H PRN PRN Reason: Pain Stop: 10/07/18 11:05 Last Admin: 10/03/18 13:45 Dose: 0.5 mg Documented by: Heparin Sodium/Dextrose (Heparin Sodium/Dextrose) 25,000 units in 500 mls @ 13 mls/hr IV .Q24H [facility]; Protocol Stop: 10/30/18 09:44 Last Admin: 10/05/18 08:27 Dose: 650 units/hr, 13 mls/hr Documented by: Insulin Aspart (Novolog Flexpen) 0 units SC [facility] Stop: 10/23/18 20:59 Last Admin: 10/05/18 08:20 Dose: 5 units Documented by: Levothyroxine Sodium (Synthroid) 100 mcg PO DAILYBB [facility] Stop: 10/23/18 11:59 Last Admin: 10/05/18 05:51 Dose: 100 mcg Documented by: Magnesium Hydroxide (Milk Of Magnesia) 30 ml PO Q6H PRN PRN Reason: Constipation Stop: 10/23/18 11:05 Last Admin: 09/26/18 09:08 Dose: 30 ml Documented by: Metoclopramide HCl (Reglan) 10 mg IV Q6H PRN PRN Reason: Nausea And Vomiting Stop: 10/23/18 11:05 Last Admin: 09/28/18 13:25 Dose: 10 mg Documented by: Metoprolol Tartrate (Lopressor) 5 mg IV Q6 PRN PRN Reason: HR> 100 Stop: 10/26/18 17:59 Last Admin: 09/27/18 09:03 Dose: 5 mg Documented by: Metoprolol Tartrate (Lopressor) 25 mg PO BID [facility] Stop: 10/27/18 08:59 Last Admin: 10/05/18 08:13 Dose: 25 mg Documented by: Miscellaneous (Carbohydrates For Hypoglycemia) 15 - 30 gm PO UD PRN PRN Reason: Hypoglycemia Treatment Stop: 10/23/18 14:21 Morphine Sulfate (Ms Contin) 15 mg PO Q12H [facility] Stop: 10/13/18 07:59 Last Admin: 10/05/18 08:16 Dose: 15 mg Documented by: Naloxone HCl (Narcan) 0.1 mg IV Q5M PRN PRN Reason: Oversedation/Resp Depression Stop: 10/23/18 11:05 Ondansetron HCl (Zofran) 4 mg IV Q6H PRN PRN Reason: Nausea And Vomiting Stop: 10/23/18 11:05 Oxycodone HCl (Roxicodone Immediate Rel) 5 - 10 mg PO Q4H PRN PRN Reason: Pain Stop: 10/07/18 11:05 Last Admin: 10/05/18 04:22 Dose: 10 mg Documented by: Pantoprazole Sodium (Protonix) 40 mg PO HS [facility] Stop: 10/23/18 20:59 Last Admin: 10/04/18 20:10 Dose: 40 mg Documented by: Potassium Chloride (Klor-Con M10) 10 meq PO DAILY [facility] Stop: 10/24/18 08:59 Last Admin: 10/05/18 08:12 Dose: 10 meq Documented by: Ropinirole HCl (Requip) 2 mg PO TID [facility] Stop: 10/23/18 13:59 Last Admin: 10/05/18 08:13 Dose: 2 mg Documented by: Rosuvastatin Calcium (Crestor) 10 mg PO QPM [facility] Stop: 10/23/18 20:59 Last Admin: 10/04/18 20:08 Dose: 10 mg Documented by: Sennosides (Senokot) 17.2 mg PO HS [facility] Stop: 10/23/18 20:59 Last Admin: 10/04/18 20:11 Dose: 17.2 mg Documented by: Thiamine HCl (Vitamin B-1) 50 mg PO QAM [facility] Stop: 10/23/18 11:05 Last Admin: 10/05/18 08:12 Dose: 50 mg Documented by: Vitamin B Complex (Vitamin B Complex) 1 tab PO QAM [facility] Stop: 11/02/18 08:59 Last Admin: 10/05/18 08:13 Dose: 1 tab Documented by: Warfarin Sodium (Coumadin) 7.5 mg PO DAILY@1600 [facility] Stop: 10/30/18 15:59 Last Admin: 10/04/18 16:24 Dose: 7.5 mg Documented by: (1) Hemarthrosis involving knee joint Laterality: left Qualified Code(s): M25.062 - Hemarthrosis, left knee
--- NOTE | 2018-10-05 09:45 | Hospitalist Progress Note ---
Date of Service October 05, 2018 Assessment & Plan (1) Hemarthrosis involving knee joint: Left total knee replacement; Hemarthrosis involving left knee joint, Acute blood loss as cause of postoperative anemia, -Operation Date: 09/23/18 Left Total Knee Arthroplasty(Left) by Dr. Cormier -with postoperative complication of left knee hemarthosis secondary to being on multiple anticoagulants because of mechanical mitral valve -Ice, elevation, compressive dressing/Vincent wrap. Limit bending no greater than 80-90 degrees flexion at this time. (2) Pain, joint, knee, left: pain is controlled continue pain medications (3) S/P TKR (total knee replacement): Operation Date: 09/23/18 Left Total Knee Arthroplasty(Left) by Dr. Cormier (4) Degenerative joint disease of left knee: Operation Date: 09/23/18 Left Total Knee Arthroplasty(Left) by Dr. Cormier (5) A-fib: chronic atrial fibrillation (with initial rapid ventricular response earlier on this admission) - history of chronic a. fib -rate control with metoprolol (6) H/O mitral valve replacement with mechanical valve: -Acute hemarthrosis noted at around left knee joint on this admission -Patient was on multiple anticoagulation at the time (Plavix, Lovenox subcu discontinued) -during this hospital stay patient has received 4 units of PRBC -initially patient's INR was reversed but because of presence of mechanical mitral valve, patient has been resumed on coumadin with heparin IV with aims of trying to get back to therapeutic INR -left leg swelling is still present and in VINCENT dressing but as per patient is reduced in size -patient has left flank bruising noted on 10/01/18 while on coumadin and heparin drip. There is no radiographic evidence of acute/distracted left-sided rib fracture on the rib series -continue to current coumadin dosing with heparin drip to try to increase INR to goal INR 2.5 of 3.5 - currently continues heparin drip, continue coumadin 7.5 mg daily, INR is 1.8, Hgb is 9 (7) HTN (hypertension): -Continue metoprolol (8) Diabetes: -hgb a1c 5.8 08/2018 -diet controlled at home -Novolog per protocol while hospitalized (9) Acute blood loss as cause of postoperative anemia: -Acute hemarthrosis noted at around left knee joint on this admission -Patient was on multiple anticoagulation at the time (Plavix, Lovenox subcu discontinued) -during this hospital stay patient has received 4 units of PRBC -initially patient's INR was reversed but because of presence of mechanical mitral valve, patient has been resumed on coumadin with heparin IV with aims of trying to get back to therapeutic INR -left leg swelling is still present and in VINCENT dressing but as per patient is reduced in size -patient has left flank bruising noted on 10/01/18 while on coumadin and heparin drip. There is no radiographic evidence of acute/distracted left-sided rib fracture on the rib series -continue to current coumadin dosing with heparin drip to try to increase INR to goal INR 2.5 of 3.5 - currently continues heparin drip, continue coumadin 7.5 mg daily, INR is 1.8, Hgb is 9 (10) Coronary artery disease: -stable, no reports of chest pain/shortness of breath or angina symptom -continue beta marjorie, statin, -Plavix kept on hold for ongoing postop bleeding complication (11) CKD (chronic kidney disease), stage III: -stable renal function (12) Hypothyroidism: - Continue levothyroxine (13) GERD (gastroesophageal reflux disease): - continue PPI (14) DVT prophylaxis: -on systemic anticoagulation of coumadin and IV heparin (15) Leg edema: Individual left lower extremity edema noted, Due to inflammation/diffuse ecchymosis from left knee hemarthrosis patient had been on antibiotics of Vancomycin and Zosyn and then switched to Cefazolin, stopped antibiotics on 10/02/18 and continue to monitor off antibiotics CODE STATUS: Full code Subjective left flank hematoma present still present but appears to be improving, left leg in VINCENT dressing. continues heparin drip, continue coumadin 7.5 mg daily, INR is 1.8, Hgb is 9 patient breathing on room air. had made bowel movement. no problems with urination. no chest pain. no palpitations. no abdominal pain. no dizziness. no lightheadedness. no vomiting Physical Exam Constitutional: comfortable Eyes: PERRL, conjunctivae normal, anicteric sclerae EOM intact bilaterally ENMT: external ear and nose normal, oropharynx normal Neck: trachea midline, no thyromegaly normal visual inspection Respiratory: normal respiratory effort, lungs clear to auscultation Cardiovascular: Rate/Rhythm: regular rate and + irregularly irregular Gastrointestinal (Abdomen): normal bowel sounds, soft, nontender, no hepatosplenomegaly Musculoskeletal: Head/Neck/Chest: normocephalic and head atraumatic Neurologic: PERRL, EOMI, accommodation nl, no face palsy, no dysarthria Psychiatric: A+Ox3, euthymic affect Results & Data Vital Signs (Past 12 Hours) Vital Signs Temp Pulse Pulse Resp BP Pulse Ox 10/05/18 07:35 36.6 C 78 16 118/63 97 10/05/18 04:24 36.6 C 78 22 133/85 98 10/05/18 00:00 84 10/04/18 23:56 36.7 C 84 20 132/89 94 (1) Diabetes Diabetes mellitus complication status: without complication Diabetes mellitus intermediate insulin use: without dedicated intermodal 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 transplanted heart: [place] heart Qualified Code(s): I25.10 - Atherosclerotic heart disease of [place] coronary artery without angina pectoris (3) A-fib Atrial fibrillation type: chronic Qualified Code(s): I48.2 - Chronic atrial fibrillation (4) Hypothyroidism Hypothyroidism type: postablative Qualified Code(s): E89.0 - Postprocedural hypothyroidism (5) S/P TKR (total knee replacement) Laterality: left Qualified Code(s): Z96.652 - Presence of left artificial knee joint (6) Degenerative joint disease of left knee Osteoarthritis type: unspecified Qualified Code(s): M17.12 - Unilateral primary osteoarthritis, left knee (7) Hemarthrosis involving knee joint Laterality: left Qualified Code(s): M25.062 - Hemarthrosis, left knee (8) GERD (gastroesophageal reflux disease) Esophagitis presence: without esophagitis Qualified Code(s): K21.9 - Gastro- esophageal reflux disease without esophagitis (9) HTN (hypertension) Hypertension type: unspecified Qualified Code(s): I10 - Essential (primary) hypertension
[2018-10-05 13:30] LABS: Partial Thromboplastin Ratio 2.3
[2018-10-05 13:31] LABS: Partial Thromboplastin Time 62.7 Seconds (21.0-31.0)
[2018-10-05] MEDS: WARFARIN SOD 7.5 MG TAB PO SCH (15:29)
[2018-10-05] MEDS: HYDROmorphone INJ 0.5 MG/0.5 ML SYR IV PRN (16:41)
[2018-10-05] MEDS: ROSUVASTATIN CALCIUM 10 MG TAB PO SCH (20:23)
[2018-10-05] MEDS: PANTOprazole 40 MG TAB PO SCH (20:24)
[2018-10-05] MEDS: SENNA 8.6 MG TAB PO SCH (20:27)
[2018-10-06] MEDS: OXYCODONE HCL IR 5 MG TAB (IMMEDIATE RELEASE) PO PRN ×2 (00:23→14:27)
[2018-10-06] MEDS: LEVOTHYROXINE SODIUM 100 MCG TABLET PO SCH (05:26)
[2018-10-06 05:37] LABS: Basophils # (auto) 0.04 K/uL (0-0.2); Basophils % (auto) 0.4 %; Eosinophils # (auto) 0.32 K/uL (0-0.5); Hematocrit (blood only) 28.2 % (37-47); Hemoglobin 8.9 g/dL (12.0-16.0); Immature Granulocytes # (auto) 0.22 K/uL (0.00-0.02); Immature Granulocytes % (auto) 2.1 %; Lymphocytes # (auto) 1.53 K/uL (1.2-3.4); Lymphocytes % (auto) 14.4 %; Mean Corpuscular Hgb Conc 31.6 g/dL (32-36); Mean Corpuscular Volume 91.3 fL (80-100); Mean Platelet Volume 9.1 fL (7.4-10.4); Monocytes # (auto) 0.88 K/uL (0.11-0.59); Monocytes % (auto) 8.3 %; Neutrophils # (auto) 7.63 K/uL (1.4-6.5); Neutrophils % (auto) 71.8 %; Platelet Count 428 K/uL (130-400); RDW Coefficient of Variation 16.2 % (11.5-14.5); RDW Standard Deviation 53.1 fL (36.4-46.3); Red Blood Count 3.09 M/uL (4.2-5.4); White Blood Count 10.62 K/uL (4.8-10.8)
[2018-10-06 06:09] LABS: INR 2.2 (0.9-1.1); Partial Thromboplastin Ratio 2.5; Prothrombin Time 21.7 Seconds (9.0-12.0)
[2018-10-06 06:13] LABS: Partial Thromboplastin Time 66.6 Seconds (21.0-31.0)
[2018-10-06] MEDS: THIAMINE HCL 50 MG TABLET PO SCH (07:27)
[2018-10-06] MEDS: METOPROLOL TARTRATE 25 MG TAB PO SCH ×2 (07:27→20:54)
[2018-10-06] MEDS: VITAMIN B COMPLEX TAB PO SCH (07:27)
[2018-10-06] MEDS: FOLIC ACID 1 MG TAB PO SCH (07:28)
[2018-10-06] MEDS: DOCUSATE SODIUM 100 MG CAP PO SCH ×2 (07:28→21:01)
[2018-10-06] MEDS: POTASSIUM CHLORIDE 10 MEQ TABCR PO SCH (07:28)
[2018-10-06] MEDS: ROPINIROLE HCL 1 MG TABLET PO SCH ×3 (07:28→20:54)
[2018-10-06] MEDS: AMITRIPTYLINE HCL 25 MG TAB PO SCH ×4 (07:28→20:54)
[2018-10-06] MEDS: FUROSEMIDE 20 MG TAB PO SCH (07:29)
[2018-10-06] MEDS: FERROUS SULFATE 325 MG TAB PO SCH (07:29)
[2018-10-06] MEDS: MoRPHine SULFATE CR 15 MG TABCR PO SCH ×2 (07:29→19:59)
[2018-10-06] MEDS: INSULIN ASPART 100 UNITS/ML 3 ML PEN SC SCH ×4 (07:30→20:59)
--- NOTE | 2018-10-06 09:02 | Cardiology Progress Note ---
Date of Service October 06, 2018 Assessment & Plan (1) H/O mitral valve replacement with mechanical valve: (2) Atrial fibrillation: (3) Hemarthrosis involving knee joint: INR 2.2 today, Hgb: 8.9. Goal INR is 2.5-3.5 , perhaps even 3-3 given past TIA history. Given bleeding complications earlier this hospital stay however, I am inclined to discontinue her heparin infusion today, as I anticipate her INR will trend up by tomorrow to be within goal, and would prefer to minimize further bleeding complications. Prior to hospital plavix has been discontinued. Repeat INR tomorrow. Continue coumadin 7.5 mg . Remain in hospital. Subjective CC: follow up mechanical MV, chronic atrial fibrillation, post op flank hematoma, hemarthrosis Subjective: Pt doing well. She is no on the 3rd floor and is no longer on telemetry. She was working with physical therapy when I arrived to see her, and progressing well. Denies cardiac complaint. Review of Systems Review of Systems: All systems reviewed & are unremarkable except as noted in HPI & below Physical Exam Physical Exam: Temp Pulse Resp BP Pulse Ox 36.7 C 93 H 18 142/76 H 98 10/06/18 06:38 10/06/18 06:38 10/06/18 06:38 10/06/18 06:38 10/06/18 06:38 Constitutional: WD/WN, vitals as above Respiratory: normal respiratory effort, lungs clear to auscultation Cardiovascular: Rate/Rhythm: + irregularly irregular Heart Sounds: no murmur Vessels: no JVD Extremities: no edema (operative leg wrapped with compression bandage) Neurologic: patellar DTR's 2+ bilat, sensation intact Results & Data Vital Signs (Past 12 Hours) Vital Signs Temp Pulse Resp BP Pulse Ox 10/06/18 06:38 36.7 C 93 H 18 142/76 H 98 10/05/18 23:32 36.8 C 81 17 115/68 96 Laboratory Results Coagulation 10/05/18 10/06/18 Range/Units 12:56 05:22 PT 21.7 H (9.0-12.0) Seconds APTT 62.7 H* 66.6 H* (21.0-31.0) Seconds CBC 10/06/18 Range/Units 05:22 WBC 10.62 (4.8-10.8) K/uL RBC 3.09 L (4.2-5.4) M/uL Hgb 8.9 L (12.0-16.0) g/dL Hct 28.2 L (37-47) % Plt Count 428 H (130-400) K/uL Neut # (Auto) 7.63 H (1.4-6.5) K/uL Lymph # (Auto) 1.53 (1.2-3.4) K/uL [place] # (Auto) 0.88 H (0.11-0.59) K/uL Eos # (Auto) 0.32 (0-0.5) K/uL Baso # (Auto) 0.04 (0-0.2) K/uL Intake and Output 10/05/18 10/06/18 10/06/18 22:59 06:59 14:59 Intake Total 527.733 / 947.738 354.483 / 947.738 Output Total 300 / 300 Balance 527.733 / 946.738 354.483 / 946.738 -300 / -300 Intake: IV 27.733 / 297.738 204.483 / 297.738 HEPARIN SODIUM/DEXTROSE 25,000 27.733 / 297.738 204.483 / 297.738 units In 500 ml @ 600 UNITS/HR 12 mls/hr IV .Q24H [facility] Rx#: [id number] Oral 500 / 650 150 / 650 Output: Urine 300 / 300 Other: # Unmeasured Voids 1 Medications Administered Current Inpatient Medications Acetaminophen (Tylenol) 1,000 mg PO Q8 PRN PRN Reason: pain/fever Stop: 10/23/18 13:59 Last Admin: 10/04/18 18:39 Dose: 1,000 mg Documented by: Amitriptyline HCl (Elavil) 25 mg PO QID [facility] Stop: 10/23/18 16:59 Last Admin: 10/06/18 07:28 Dose: 25 mg Documented by: Bisacodyl (Dulcolax) 10 mg [place] DAILY PRN PRN Reason: Constipation Stop: 10/23/18 11:05 Dextrose (Dextrose 50%) 25 - 50 ml IV UD PRN; Protocol PRN Reason: Hypoglycemia Protocol Stop: 10/23/18 14:21 Diphenhydramine HCl (Benadryl Capsule) 25 mg PO Q8H PRN PRN Reason: Itching Stop: 10/23/18 11:05 Docusate Sodium (Colace) 100 mg PO BID [facility] Stop: 10/23/18 20:59 Last Admin: 10/06/18 07:28 Dose: 100 mg Documented by: Ferrous Sulfate (Feosol) 325 mg PO QAM [facility] Stop: 11/02/18 08:59 Last Admin: 10/06/18 07:29 Dose: 325 mg Documented by: Folic Acid (Folvite) 1 mg PO QAM [facility] Stop: 10/23/18 11:05 Last Admin: 10/06/18 07:28 Dose: 1 mg Documented by: [facility]sem[facility] ([facility]) [facility] Stop: 10/27/18 08:59 Last Admin: 10/06/18 07:29 Dose: 20 mg Documented by: Glucagon (Glucagen) 1 mg SQ UD PRN; Protocol PRN Reason: Hypoglycemia Protocol Stop: 10/23/18 14:21 Glucose (Glucose 40%) 15 - 30 gm PO UD PRN; Protocol PRN Reason: Hypoglycemia Protocol Stop: 10/23/18 14:21 Glucose (Dex4 Glucose) 4 - 8 tabs PO UD PRN; Protocol PRN Reason: Hypoglycemia Protocol Stop: 10/23/18 14:21 Hydromorphone HCl (Dilaudid) 0.5 mg IV Q4H PRN PRN Reason: Pain Stop: 10/07/18 11:05 Last Admin: 10/05/18 16:41 Dose: 0.5 mg Documented by: Insulin Aspart (Novolog Flexpen) 0 units SC ACHS [facility] Stop: 10/23/18 20:59 Last Admin: 10/06/18 07:30 Dose: 4 units Documented by: Levothyroxine Sodium (Synthroid) 100 mcg PO DAILYBB [facility] Stop: 10/23/18 11:59 Last Admin: 10/06/18 05:26 Dose: 100 mcg Documented by: Magnesium Hydroxide (Milk Of Magnesia) 30 ml PO Q6H PRN PRN Reason: Constipation Stop: 10/23/18 11:05 Last Admin: 09/26/18 09:08 Dose: 30 ml Documented by: Metoprolol Tartrate (Lopressor) 25 mg PO BID [facility] Stop: 10/27/18 08:59 Last Admin: 10/06/18 07:27 Dose: 25 mg Documented by: Miscellaneous (Carbohydrates For Hypoglycemia) 15 - 30 gm PO UD PRN PRN Reason: Hypoglycemia Treatment Stop: 10/23/18 14:21 Morphine Sulfate (Ms Contin) 15 mg PO Q12H [facility] Stop: 10/13/18 07:59 Last Admin: 10/06/18 07:29 Dose: 15 mg Documented by: Naloxone HCl (Narcan) 0.1 mg IV Q5M PRN PRN Reason: Oversedation/Resp Depression Stop: 10/23/18 11:05 Ondansetron HCl (Zofran) 4 mg IV Q6H PRN PRN Reason: Nausea And Vomiting Stop: 10/23/18 11:05 Oxycodone HCl (Roxicodone Immediate Rel) 5 - 10 mg PO Q4H PRN PRN Reason: Pain Stop: 10/07/18 11:05 Last Admin: 10/06/18 00:23 Dose: 10 mg Documented by: Pantoprazole Sodium (Protonix) 40 mg PO [facility] Stop: 10/23/18 20:59 Last Admin: 10/05/18 20:24 Dose: 40 mg Documented by: Potassium Chloride (Klor-Con M10) 10 meq PO DAILY [facility] Stop: 10/24/18 08:59 Last Admin: 10/06/18 07:28 Dose: 10 meq Documented by: Ropinirole HCl (Requip) 2 mg PO TID [facility] Stop: 10/23/18 13:59 Last Admin: 10/06/18 07:28 Dose: 2 mg Documented by: Rosuvastatin Calcium (Crestor) 10 mg PO QPM [facility] Stop: 10/23/18 20:59 Last Admin: 10/05/18 20:23 Dose: 10 mg Documented by: Sennosides (Senokot) 17.2 mg PO HS [facility] Stop: 10/23/18 20:59 Last Admin: 10/05/18 20:27 Dose: 17.2 mg Documented by: Thiamine HCl (Vitamin B-1) 50 mg PO QAM [facility] Stop: 10/23/18 11:05 Last Admin: 10/06/18 07:27 Dose: 50 mg Documented by: Vitamin B Complex (Vitamin B Complex) 1 tab PO QAM [facility] Stop: 11/02/18 08:59 Last Admin: 10/06/18 07:27 Dose: 1 tab Documented by: Warfarin Sodium (Coumadin) 7.5 mg PO DAILY@1600 [facility] Stop: 10/30/18 15:59 Last Admin: 10/05/18 15:29 Dose: 7.5 mg Documented by: (1) Atrial fibrillation Atrial fibrillation type: unspecified Qualified Code(s): I48.91 - Unspecified atrial fibrillation (2) Hemarthrosis involving knee joint Laterality: left Qualified Code(s): M25.062 - Hemarthrosis, left knee
--- NOTE | 2018-10-06 09:37 | Orthopedic Progress Note ---
Date of Service October 06, 2018 Assessment & Plan (1) Degenerative joint disease of left knee: s/p L TKA POD#13 -DVT ppx: SCDs, TEDs, Coumadin per medical team, goal INR 2.5-3.5. -WBAT LLE -PT/OT -Medical hospitalist consult recs appreciated -DC planning - Hgb 8.9, INR 2.2 -Left knee hemarthrosis, improving, continue down current treatment plan. We will continue to monitor closely. Ice, elevation, compressive dressing/Vincent wrap. No limitations to flexion, progress as toleratres with PT. -Upon discharge we would like for the patient to be seen 1 week later for follow up/evaluation. POD#2 -ancef x 24 -DVT ppx: SCDs, TEDs, restart patients home DVT meds, lovenox--> coumadin, follows coumadin clinic, plavix -WBAT LLE -PT/OT -HMV drain DC'd -XR L knee demonstrates a well aligned well fixed prosthesis without fracture/dislocation -am labs hgb 9.3, s/p 2 units PRBC, INR 1.6, Cr 1.51, at baseline -Medical hospitalist consult recs appreciated -DC planning - home with HH s/p L TKA POD#1 -ancef x 24 -DVT ppx: SCDs, TEDs, restart patients home DVT meds, lovenox--> coumadin, follows coumadin clinic, plavix -WBAT LLE -PT/OT -monitor drain output 50/564 -XR L knee demonstrates a well aligned well fixed prosthesis without fracture/dislocation -am labs hgb 7.3, acute post operative anemia secondary to richar-operative blood loss and dilusional effect. 2 units PRBC being tranfused today. -Medical hospitalist consult recs appreciated -DC planning - home with Subjective Post Operative Progress Note Patient seen sitting up in bed, comfortable, in good spirits, denies complaints, pain well controlled, no acute issues overnight. Review of Systems Review of Systems: All systems reviewed & are unremarkable except as noted in HPI & below Constitutional: as per Subjective / HPI Physical Exam Physical Exam: LLE NVSI +EHL/FHL/TA/GS SILT grossly, +2 DP pulse, compartments soft NT, dressing cdi. hematoma and ecchymosis decreasing in severity Constitutional: WD/WN, vitals as above Results & Data Vital Signs (Past 12 Hours) Vital Signs Temp Pulse Resp BP Pulse Ox 10/06/18 06:38 36.7 C 93 H 18 142/76 H 98 10/05/18 23:32 36.8 C 81 17 115/68 96 (1) Degenerative joint disease of left knee Osteoarthritis type: unspecified Qualified Code(s): M17.12 - Unilateral primary osteoarthritis, left knee
--- NOTE | 2018-10-06 13:11 | Hospitalist Progress Note ---
Date of Service October 06, 2018 Assessment & Plan (1) Hemarthrosis involving knee joint: Left total knee replacement; Hemarthrosis involving left knee joint, Acute blood loss as cause of postoperative anemia, -Operation Date: 09/23/18 Left Total Knee Arthroplasty(Left) by Dr. Cormier -with postoperative complication of left knee hemarthosis secondary to being on multiple anticoagulants because of mechanical mitral valve -left leg swelling is still present and in VINCENT dressing but is reduced in size compared to previous exams - Ice, elevation, compressive dressing/Vincent wrap. No limitations to flexion, weight bearing as tolerated of left leg. When patient is medically cleared for discharge from the hospital, she will to follow up Dr. Watson Cormier or his colleagues of [facility] at [address] [place] [id number] [phone] (2) Pain, joint, knee, left: -pain is controlled (3) S/P TKR (total knee replacement): Operation Date: 09/23/18 Left Total Knee Arthroplasty(Left) by Dr. Cormier (4) Degenerative joint disease of left knee: Operation Date: 09/23/18 Left Total Knee Arthroplasty(Left) by Dr. Cormier (5) A-fib: chronic atrial fibrillation (with initial rapid ventricular response earlier on this admission) - history of chronic a. fib -rate control with metoprolol (6) H/O mitral valve replacement with mechanical valve: -Acute hemarthrosis noted at around left knee joint on this admission -Patient was on multiple anticoagulation at the time (Plavix, Lovenox subcu discontinued) -during this hospital stay patient has received 4 units of PRBC -initially patient's INR was reversed but because of presence of mechanical mitral valve anticoagulation was resumed -from 09/30/18 patient has been on warfarin 7.5 mg with IV heparin drip, during the bridging patient also developed left flank bruising first noted on 10/01/18 and on imaging no evidence of rib fracture. -INR as of 10/06/18 is 2.2 and cardiology stopped the heparin drip to minimize further potential bleeding complications and to continue coumadin 7.5 mg daily for now -when the INR is 2.5 to 3.5, will expect that the patient be resumed on her alternating daily doses of warfarin 7.5 mg and 5 mg -remain in the hospital for now for close INR monitoring and blood counts (7) HTN (hypertension): -Continue metoprolol (8) Diabetes: -hgb a1c 5.8 08/2018 -diet controlled at home -Novolog per protocol while hospitalized (9) Acute blood loss as cause of postoperative anemia: -Acute hemarthrosis noted at around left knee joint on this admission -Patient was on multiple anticoagulation at the time (Plavix, Lovenox subcu discontinued) -during this hospital stay patient has received 4 units of PRBC -initially patient's INR was reversed but because of presence of mechanical mitral valve, patient has been resumed on coumadin with heparin IV with aims of trying to get back to therapeutic INR -from 09/30/18 patient has been on warfarin 7.5 mg with IV heparin drip, during the bridging patient also developed left flank bruising first noted on 10/01/18 and on imaging no evidence of rib fracture. -INR as of 10/06/18 is 2.2 and cardiology stopped the heparin drip to minimize further potential bleeding complications and to continue coumadin 7.5 mg daily for now -when the INR is 2.5 to 3.5, will expect that the patient be resumed on her alternating daily doses of warfarin 7.5 mg and 5 mg -remain in the hospital for now for close INR monitoring and blood counts (10) Coronary artery disease: -stable, no reports of chest pain/shortness of breath or angina symptom -continue beta marjorie, statin, -Plavix kept on hold for ongoing postop bleeding complication (11) CKD (chronic kidney disease), stage III: -stable renal function (12) Hypothyroidism: - Continue levothyroxine (13) GERD (gastroesophageal reflux disease): - continue PPI (14) DVT prophylaxis: -on systemic anticoagulation of coumadin and IV heparin (15) Leg edema: Individual left lower extremity edema noted, Due to inflammation/diffuse ecchymosis from left knee hemarthrosis patient had been on antibiotics of Vancomycin and Zosyn and then switched to Cefazolin, stopped antibiotics on 10/02/18 and continue to monitor off antibiotics CODE STATUS: Full code Subjective Patient's INR is 2.2 on 10/06/18 and cardiology service has stopped heparin drip to prevent bleeding risks. Hgb is 8.9. Patient denies headache or lightheadedness. No abdomen pain. no chest pain. left flank hematoma is improving. no vomiting. eating the food. comfortable. no distress Physical Exam Constitutional: comfortable Eyes: PERRL, conjunctivae normal, anicteric sclerae EOM intact bilaterally ENMT: external ear and nose normal, oropharynx normal Neck: trachea midline, no thyromegaly normal visual inspection Respiratory: normal respiratory effort, lungs clear to auscultation Cardiovascular: Rate/Rhythm: regular rate and + irregularly irregular Gastrointestinal (Abdomen): normal bowel sounds, soft, nontender, no hepatosplenomegaly Musculoskeletal: Head/Neck/Chest: normocephalic and head atraumatic left leg in VINCENT wrapping dressing and some swelling, left flank hematoma and ecchymosis appears to be resolving Neurologic: PERRL, EOMI, accommodation nl, no face palsy, no dysarthria Psychiatric: A+Ox3, euthymic affect Results & Data Vital Signs (Past 12 Hours) Vital Signs Temp Pulse Resp BP Pulse Ox 10/06/18 06:38 36.7 C 93 H 18 142/76 H 98 (1) Diabetes Diabetes mellitus complication status: without complication Diabetes mellitus skilled nursing insulin use: without termite inspector use Diabetes mellitus type: type 2 Qualified Code(s): E11.9 - Type 2 diabetes mellitus without complications (2) Coronary artery disease Associated angina: without angina Coronary Disease-Associated Artery/Lesion type: [place] artery [place] vs. transplanted heart: [place] heart Qualified Code(s): I25.10 - Atherosclerotic heart disease of [place] coronary artery without angina pectoris (3) A-fib Atrial fibrillation type: chronic Qualified Code(s): I48.2 - Chronic atrial fibrillation (4) Hypothyroidism Hypothyroidism type: postablative Qualified Code(s): E89.0 - Postprocedural hypothyroidism (5) S/P TKR (total knee replacement) Laterality: left Qualified Code(s): Z96.652 - Presence of left artificial knee joint (6) Degenerative joint disease of left knee Osteoarthritis type: unspecified Qualified Code(s): M17.12 - Unilateral [place] osteoarthritis, left knee (7) Hemarthrosis involving knee joint Laterality: left Qualified Code(s): M25.062 - Hemarthrosis, left knee (8) GERD (gastroesophageal reflux disease) Esophagitis presence: without esophagitis Qualified Code(s): K21.9 - Gastro- esophageal reflux disease without esophagitis (9) HTN (hypertension) Hypertension type: unspecified Qualified Code(s): I10 - Essential (primary) hypertension
[2018-10-06] MEDS: WARFARIN SOD 7.5 MG TAB PO SCH (15:31)
[2018-10-06] MEDS: MAGNESIUM HYDROXIDE SUSP 30 ML UDC PO PRN (19:59)
[2018-10-06] MEDS: SENNA 8.6 MG TAB PO SCH (20:54)
[2018-10-06] MEDS: ROSUVASTATIN CALCIUM 10 MG TAB PO SCH (20:54)
[2018-10-06] MEDS: PANTOprazole 40 MG TAB PO SCH (20:54)
[2018-10-07] MEDS: OXYCODONE HCL IR 5 MG TAB (IMMEDIATE RELEASE) PO PRN (03:12)
[2018-10-07] MEDS: HYDROmorphone INJ 0.5 MG/0.5 ML SYR IV PRN (05:10)
[2018-10-07] MEDS: LEVOTHYROXINE SODIUM 100 MCG TABLET PO SCH (05:31)
[2018-10-07 06:12] LABS: Basophils # (auto) 0.03 K/uL (0-0.2); Basophils % (auto) 0.3 %; Eosinophils # (auto) 0.21 K/uL (0-0.5); Eosinophils % (auto) 2.4 %; Hematocrit (blood only) 30.8 % (37-47); Hemoglobin 9.7 g/dL (12.0-16.0); Immature Granulocytes # (auto) 0.12 K/uL (0.00-0.02); Immature Granulocytes % (auto) 1.3 %; Lymphocytes # (auto) 0.89 K/uL (1.2-3.4); Mean Corpuscular Hgb Conc 31.5 g/dL (32-36); Mean Corpuscular Volume 91.9 fL (80-100); Mean Platelet Volume 9.2 fL (7.4-10.4); Monocytes # (auto) 0.77 K/uL (0.11-0.59); Monocytes % (auto) 8.6 %; Neutrophils # (auto) 6.91 K/uL (1.4-6.5); Neutrophils % (auto) 77.4 %; Platelet Count 453 K/uL (130-400); RDW Coefficient of Variation 16.1 % (11.5-14.5); RDW Standard Deviation 53.6 fL (36.4-46.3); Red Blood Count 3.35 M/uL (4.2-5.4); White Blood Count 8.93 K/uL (4.8-10.8)
[2018-10-07 06:43] LABS: INR 2.3 (0.9-1.1); Partial Thromboplastin Ratio 1.7
[2018-10-07 06:53] LABS: Partial Thromboplastin Time 45.7 Seconds (21.0-31.0)
[2018-10-07] MEDS: DOCUSATE SODIUM 100 MG CAP PO SCH ×2 (08:14→20:25)
[2018-10-07] MEDS: FOLIC ACID 1 MG TAB PO SCH (08:14)
[2018-10-07] MEDS: METOPROLOL TARTRATE 25 MG TAB PO SCH ×2 (08:14→20:24)
[2018-10-07] MEDS: VITAMIN B COMPLEX TAB PO SCH (08:14)
[2018-10-07] MEDS: FUROSEMIDE 20 MG TAB PO SCH (08:14)
[2018-10-07] MEDS: THIAMINE HCL 50 MG TABLET PO SCH (08:14)
[2018-10-07] MEDS: ROPINIROLE HCL 1 MG TABLET PO SCH ×3 (08:14→20:21)
[2018-10-07] MEDS: AMITRIPTYLINE HCL 25 MG TAB PO SCH ×4 (08:14→20:20)
[2018-10-07] MEDS: FERROUS SULFATE 325 MG TAB PO SCH (08:14)
[2018-10-07] MEDS: POTASSIUM CHLORIDE 10 MEQ TABCR PO SCH (08:14)
[2018-10-07] MEDS: MoRPHine SULFATE CR 15 MG TABCR PO SCH ×2 (08:14→20:19)
[2018-10-07] MEDS: INSULIN ASPART 100 UNITS/ML 3 ML PEN SC SCH ×4 (08:36→21:09)
[2018-10-07] MEDS ORDERED: HYDROmorphone INJ 0.5 MG/0.5 ML SYR IV STA ×2 (09:23→18:21)
--- NOTE | 2018-10-07 09:29 | Hospitalist Progress Note ---
Date of Service October 07, 2018 Assessment & Plan (1) Hemarthrosis involving knee joint: Left total knee replacement; Hemarthrosis involving left knee joint, Acute blood loss as cause of postoperative anemia, -Operation Date: 09/23/18 Left Total Knee Arthroplasty(Left) by Dr. Cormier -with postoperative complication of left knee hemarthosis secondary to being on multiple anticoagulants because of mechanical mitral valve -Ice, elevation. No limitations to flexion, weight bearing as tolerated of left leg. When patient is medically cleared for discharge from the hospital, she will to follow up Dr. Watson Cormier or his colleagues of [facility] at [address] [place], [place] [id number] [phone] -patient has been had PERRY dressing bandage for at least 1 week as been recommended by orthopedics but on 10/07/18 for the first time in at least 1 week, patient voiced complaint of left knee pain to physician. The PERRY dressing bandage which was recommended by orthopedics have been removed. There is left knee swelling as expected but no drainage of the skin. The skin temperature of the left knee about the same as the unaffected right knee. wound care nurse asked to take photo of the left knee to be placed on to the chart for comparison. would at this time, have patient off of the PERRY dressing bandage for now. Patient to be given 0.5 mg of IV Dilaudid. She agrees to being off of the PERRY dressing bandage for about a day or 2 until less knee pain. Patient's Hgb is improving and WBC is downtrending so dressing bandage may have been reason for discomfort (2) Pain, joint, knee, left: -pain medications -10/07/18: For the first time in at least 1 week, patient voiced complaint of left knee pain to physician. The PERRY dressing bandage which was recommended by orthopedics have been removed. There is left knee swelling as expected but no drainage of the skin. The skin temperature of the left knee about the same as the unaffected right knee. wound care nurse asked to take photo of the left knee to be placed on to the chart for comparison. would at this time, have patient off of the PERRY dressing bandage for now. Patient to be given 0.5 mg of IV Dilaudid. She agrees to being off of the PERRY dressing bandage for about a day or 2 until less knee pain. Patient's Hgb is improving and WBC is downtrending so dressing bandage may have been reason for discomfort (3) S/P TKR (total knee replacement): Operation Date: 09/23/18 Left Total Knee Arthroplasty(Left) by Dr. Cormier (4) Degenerative joint disease of left knee: Operation Date: 09/23/18 Left Total Knee Arthroplasty(Left) by Dr. Cormier (5) A-fib: chronic atrial fibrillation (with initial rapid ventricular response earlier on this admission) - history of chronic a. fib -rate control with metoprolol (6) H/O mitral valve replacement with mechanical valve: -Acute hemarthrosis noted at around left knee joint on this admission -Patient was on multiple anticoagulation at the time (Plavix, Lovenox subcu discontinued) -during this hospital stay patient has received 4 units of PRBC -initially patient's INR was reversed but because of presence of mechanical mitral valve anticoagulation was resumed -from 09/30/18 patient has been on warfarin 7.5 mg with IV heparin drip, during the bridging patient also developed left flank bruising first noted on 10/01/18 and on imaging no evidence of rib fracture. -INR as of 10/06/18 is 2.2 and cardiology stopped the heparin drip to minimize further potential bleeding complications and to continue coumadin 7.5 mg daily for now -INR as of 10/07/18 is 2.3. will order coumadin 10 mg on 10/07/18 and then switch back to coumadin 7.5 mg daily starting 10/08/18 -when the INR is 2.5 to 3.5, will expect that the patient be resumed on her alternating daily doses of warfarin 7.5 mg and 5 mg -remain in the hospital for now for close INR monitoring and blood counts (7) HTN (hypertension): -Continue metoprolol (8) Diabetes: -hgb a1c 5.8 08/2018 -diet controlled at home -Novolog per protocol while hospitalized (9) Acute blood loss as cause of postoperative anemia: -Acute hemarthrosis noted at around left knee joint on this admission -Patient was on multiple anticoagulation at the time (Plavix, Lovenox subcu discontinued) -during this hospital stay patient has received 4 units of PRBC -initially patient's INR was reversed but because of presence of mechanical mitral valve, patient has been resumed on coumadin with heparin IV with aims of trying to get back to therapeutic INR -from 09/30/18 patient has been on warfarin 7.5 mg with IV heparin drip, during the bridging patient also developed left flank bruising first noted on 10/01/18 and on imaging no evidence of rib fracture. -INR as of 10/06/18 is 2.2 and cardiology stopped the heparin drip to minimize further potential bleeding complications and to continue coumadin 7.5 mg daily for now -INR as of 10/07/18 is 2.3. will order coumadin 10 mg on 10/07/18 and then switch back to coumadin 7.5 mg daily starting 10/08/18 -when the INR is 2.5 to 3.5, will expect that the patient be resumed on her alternating daily doses of warfarin 7.5 mg and 5 mg -remain in the hospital for now for close INR monitoring and blood counts (10) Coronary artery disease: -stable, no reports of chest pain/shortness of breath or angina symptom -continue beta marjorie, statin, -Plavix kept on hold for ongoing postop bleeding complication (11) CKD (chronic kidney disease), stage III: -stable renal function (12) Hypothyroidism: - Continue levothyroxine (13) GERD (gastroesophageal reflux disease): - continue PPI (14) DVT prophylaxis: -on systemic anticoagulation (15) Leg edema: Individual left lower extremity edema noted, Due to inflammation/diffuse ecchymosis from left knee hemarthrosis patient had been on antibiotics of Vancomycin and Zosyn and then switched to Cefazolin, stopped antibiotics on 10/02/18 and continue to monitor off antibiotics. WBC has normalized off antibiotics CODE STATUS: Full code Subjective INR is 2.3 today. For the first time in at least 1 week, patient voiced complaint of left knee pain to physician. The PERRY dressing bandage which was recommended by orthopedics have been removed. There is left knee swelling as expected but no drainage of the skin. The skin temperature of the left knee about the same as the unaffected right knee. Patient to be given 0.5 mg of IV Dilaudid. She agrees to being off of the PERRY dressing bandage for about a day or 2 until less knee pain. Patient's Hgb is improving and WBC is downtrending so dressing bandage may have been reason for discomfort. no chest pain, no palpitations, no chest pain pain, left flank hematoma resolving, no shortness of breath. Physical Exam Constitutional: comfortable Eyes: PERRL, conjunctivae normal, anicteric sclerae EOM intact bilaterally ENMT: external ear and nose normal, oropharynx normal Neck: trachea midline, no thyromegaly normal visual inspection Respiratory: normal respiratory effort, lungs clear to auscultation Cardiovascular: Rate/Rhythm: regular rate and + irregularly irregular Gastrointestinal (Abdomen): normal bowel sounds, soft, nontender, no hepatosplenomegaly Musculoskeletal: Head/Neck/Chest: normocephalic and head atraumatic The PERRY dressing bandage which was recommended by orthopedics have been removed. There is left knee swelling as expected but no drainage of the skin. The skin temperature of the left knee about the same as the unaffected right knee. left flank hematoma resolving Neurologic: PERRL, EOMI, accommodation nl, no face palsy, no dysarthria Psychiatric: A+Ox3, euthymic affect Results & Data Vital Signs (Past 12 Hours) Vital Signs Temp Pulse Pulse Resp BP Pulse Ox 10/07/18 07:27 36.8 C 78 16 125/68 100 10/06/18 23:30 36.8 C 82 16 119/66 97 (1) Hemarthrosis involving knee joint Laterality: left Qualified Code(s): M25.062 - Hemarthrosis, left knee (2) S/P TKR (total knee replacement) Laterality: left Qualified Code(s): Z96.652 - Presence of left artificial knee joint (3) Degenerative joint disease of left knee Osteoarthritis type: unspecified Qualified Code(s): M17.12 - Unilateral primary osteoarthritis, left knee (4) A-fib Atrial fibrillation type: chronic Qualified Code(s): I48.2 - Chronic atrial fibrillation (5) HTN (hypertension) Hypertension type: unspecified Qualified Code(s): I10 - Essential (primary) hypertension (6) Diabetes Diabetes mellitus type: type 2 Diabetes mellitus chcf insulin use: without chcf use Diabetes mellitus complication status: without complic ation Qualified Code(s): E11.9 - Type 2 diabetes mellitus without complications (7) Coronary artery disease Coronary Disease-Associated Artery/Lesion type: [place] artery [place] vs. transplanted heart: [place] heart Associated angina: without angina Qualified Code(s): I25.10 - Atherosclerotic heart disease of [place] coronary artery without angina pectoris (8) Hypothyroidism Hypothyroidism type: postablative Qualified Code(s): E89.0 - Postprocedural hypothyroidism (9) GERD (gastroesophageal reflux disease) Esophagitis presence: without esophagitis Qualified Code(s): K21.9 - Gastro- esophageal reflux disease without esophagitis
--- NOTE | 2018-10-07 12:48 | Cardiology Progress Note ---
Date of Service October 07, 2018 Assessment & Plan (1) H/O mitral valve replacement with mechanical valve: (2) Hemarthrosis involving knee joint: Continue Coumadin 7.5 mg daily. Goal INR 2.5-3.5. Recheck INR tomorrow. Increase physical therapy and activity as tolerated. Subjective CC: follow up mechanical mitral valve replacement Subjective: Patient comfortable. She is in good spirits. She tolerated physical therapy well this morning. Review of Systems Review of Systems: All systems reviewed & are unremarkable except as noted in HPI & below Physical Exam Physical Exam: Temp Pulse Resp BP Pulse Ox 36.8 C 78 16 125/68 100 10/07/18 07:27 10/07/18 07:27 10/07/18 07:27 10/07/18 07:27 10/07/18 07:27 Constitutional: WD/WN, vitals as above Respiratory: normal respiratory effort, lungs clear to auscultation Cardiovascular: Rate/Rhythm: + irregularly irregular Vessels: no JVD Extremities: + edema Prosthetic mitral valve sounds noted on auscultation Gastrointestinal (Abdomen): normal bowel sounds, soft, nontender, no hepatosplenomegaly Musculoskeletal: Mild to moderate ecchymosis noted at the site of the left knee replacement, that is improving per patient Neurologic: PERRL, EOMI, accommodation nl, no face palsy, no dysarthria Results & Data Vital Signs (Past 12 Hours) Vital Signs Temp Pulse Resp BP Pulse Ox 10/07/18 07:27 36.8 C 78 16 125/68 100 Laboratory Results Hemoglobin today 10/07/2018: 9.7, improved compared to 8.9 yesterday INR today 10/07/2018, 2.3, up from 2.2 yesterday (1) Hemarthrosis involving knee joint Laterality: left Qualified Code(s): M25.062 - Hemarthrosis, left knee
[2018-10-07] MEDS: ACETAMINOPHEN 325 MG TAB PO PRN (14:39)
[2018-10-07] MEDS ORDERED: WARFARIN SOD 10 MG TAB PO ONE (16:00)
[2018-10-07] MEDS ORDERED: WARFARIN SOD 7.5 MG TAB PO SCH (16:00)
[2018-10-07] MEDS ORDERED: HYDROmorphone INJ 0.5 MG/0.5 ML SYR IV PRN (18:22)
[2018-10-07] MEDS: ROSUVASTATIN CALCIUM 10 MG TAB PO SCH (20:20)
[2018-10-07] MEDS: SENNA 8.6 MG TAB PO SCH (20:20)
[2018-10-07] MEDS: PANTOprazole 40 MG TAB PO SCH (20:22)
[2018-10-08] MEDS: ACETAMINOPHEN 325 MG TAB PO PRN (03:54)
[2018-10-08] MEDS: LEVOTHYROXINE SODIUM 100 MCG TABLET PO SCH (05:56)
[2018-10-08] MEDS: MoRPHine SULFATE CR 15 MG TABCR PO SCH (07:52)
[2018-10-08] MEDS: AMITRIPTYLINE HCL 25 MG TAB PO SCH ×3 (08:09→18:08)
[2018-10-08] MEDS: POTASSIUM CHLORIDE 10 MEQ TABCR PO SCH (08:09)
[2018-10-08] MEDS: ROPINIROLE HCL 1 MG TABLET PO SCH ×2 (08:09→13:47)
[2018-10-08] MEDS: THIAMINE HCL 50 MG TABLET PO SCH (08:09)
[2018-10-08] MEDS: METOPROLOL TARTRATE 25 MG TAB PO SCH (08:09)
[2018-10-08] MEDS: FOLIC ACID 1 MG TAB PO SCH (08:10)
[2018-10-08] MEDS: FERROUS SULFATE 325 MG TAB PO SCH (08:10)
[2018-10-08] MEDS: FUROSEMIDE 20 MG TAB PO SCH (08:10)
[2018-10-08] MEDS: VITAMIN B COMPLEX TAB PO SCH (08:10)
[2018-10-08] MEDS: DOCUSATE SODIUM 100 MG CAP PO SCH (08:12)
[2018-10-08] MEDS: INSULIN ASPART 100 UNITS/ML 3 ML PEN SC SCH ×2 (08:47→13:43)
[2018-10-08] MEDS ORDERED: LORazepam 0.5 MG/1 ML VIAL IV PRN (09:37)
[2018-10-08 10:07] LABS: INR 2.9 (0.9-1.1); Prothrombin Time 27.2 Seconds (9.0-12.0)
--- NOTE | 2018-10-08 10:56 | Cardiology Progress Note ---
Date of Service October 08, 2018 Assessment & Plan (1) Hemarthrosis involving knee joint: (2) H/O mitral valve replacement with mechanical valve: (3) Atrial fibrillation: INR at goal at 2.9, goal 2.5-3.5. Pt takes coumadin 7.5 mg alternating with 5 mg at home. Has been loaded with 7.5 mg since having received IV vitamine K. Will reduce to 5 mg for today. Pt plans to return home with home PT and home health. She has a sofa bed on the first floor that she plans to use to avoid steps. Plan for close anticoagulation clinic follow up. Plavix discontinued. Pt believes she already has cardiology visit within the next month, will check this in Epic. If pt remains in hospital overnight, will repeat INR in am. Subjective CC: follow up mechanical mitral valve replacement, post operative hemarthrosis, atrial fibrillation Subjective: Abdi fees well overall. Had nausea this am that she attributes to the syrup she had with her breakfast. She continues to progress with PT. Review of Systems Review of Systems: All systems reviewed & are unremarkable except as noted in HPI & below Physical Exam Physical Exam: Temp Pulse Resp BP Pulse Ox 36.8 C 90 16 111/71 100 10/08/18 07:18 10/08/18 07:18 10/08/18 07:18 10/08/18 07:18 10/08/18 07:18 Constitutional: WD/WN, vitals as above Respiratory: normal respiratory effort, lungs clear to auscultation Cardiovascular: Rate/Rhythm: + irregularly irregular Heart Sounds: no murmur Vessels: no JVD Extremities: no edema (no right lower ext edema, left knee with mild swelling, ecchymosis,improved) Results & Data Vital Signs (Past 12 Hours) Vital Signs Temp Pulse Resp BP Pulse Ox 10/08/18 07:18 36.8 C 90 16 111/71 100 10/07/18 23:20 36.7 C 87 16 116/65 97 Laboratory Results INR today 10/08/18: 2.9 (1) Hemarthrosis involving knee joint Laterality: left Qualified Code(s): M25.062 - Hemarthrosis, left knee (2) Atrial fibrillation Atrial fibrillation type: unspecified Qualified Code(s): I48.91 - Unspecified atrial fibrillation
[2018-10-08] MEDS ORDERED: WARFARIN SOD 7.5 MG TAB PO SCH (16:00)
[2018-10-08] MEDS ORDERED: WARFARIN SOD 5 MG TAB PO SCH (16:00)
--- NOTE | 2018-10-08 17:17 | Hospitalist Progress Note ---
Date of Service October 08, 2018 Assessment & Plan (1) S/P TKR (total knee replacement): Left total knee arthroplasty performed by Dr. Cormier on 09/23/18. Postoperative course complicated by hemarthrosis left knee and spontaneous left flank hematosis as discussed above. Now ambulate with walker. Arrangements made for home health services with PT and OT. (2) Hemarthrosis involving knee joint: Developed hemarthrosis left knee after total knee arthroplasty, associated with bridging anticoagulation and antiplatelet therapy with clopidogrel. Hemarthrosis resolving. (3) Acute blood loss as cause of postoperative anemia: Preoperative hemoglobin was 10.3 on 09/08/2018. Hemoglobin postoperatively on 09/24 was 7.3. Developed large hemarthrosis left knee and spontaneous hematoma left flank in setting of bridge therapy for mechanical mitral valve and atrial fibrillation; was also receiving antiplatelet therapy with clopidogrel. Required transfusion of 4 units of packed RBCs. Hemoglobin stable at 9.7 on 10/07/2018. Discharge on ferrous sulfate. Monitor H/H. (4) Coronary artery disease: No anginal symptoms. No antiplatelet therapy because of postoperative bleeding complications. Continue metoprolol and statin. (5) H/O mitral valve replacement with mechanical valve: Continue anticoagulation with warfarin. (6) Atrial fibrillation: Chronic atrial fibrillation with underlying rheumatic heart disease. Rate controlled with metoprolol. Continue anticoagulation with warfarin. (7) History of CVA (cerebrovascular accident): High risk for cardioembolic neurologic events due to chronic atrial fibrillation and mechanical mitral valve replacement. Followed by [facility]. History of suspected TIA in past and clopidogrel was added to warfarin management. Postoperative hemarthrosis left knee and spontaneous left flank hematoma postoperatively. Clopidogrel discontinued. Once active bleeding had resolved, patient was started on IV heparin and warfarin was restarted. (8) Diabetes type 2, controlled: Diabetes mellitus type 2, well controlled. Hemoglobin A1c 5.8 on 09/08/2018. Received insulin coverage as necessary. Fasting blood sugar this morning 137. (9) Hypothyroidism: Continue levothyroxine. (10) DVT prophylaxis: Currently receiving warfarin with therapeutic INR. (11) Discharge planning issues: Discharged home with services. Family Medicine follow-up with Dr. Blanco. Follow-up with [facility]. Ortho follow-up with Dr. Cormier. Subjective Recheck for multiple problems. Patient seen in their room around 16:20. Nausea this morning, resolved with lorazepam. Tolerated lunch without any difficulty. Left knee pain and swelling improved. Ambulating with walker. Anxious to go home; has adequate support / services. Review of Systems: Constitutional- no fever. Cardiac- no chest pain. Pulmonary- no cough or SOB. GI- no nausea, vomiting, diarrhea, melena, hematochezia. - no urinary symptoms. Otherwise, as noted above. Physical Exam Constitutional: no acute distress Respiratory: no respiratory distress Auscultation: lungs clear to auscultation bilaterally Cardiovascular: Rate/Rhythm: + irregularly irregular Heart Sounds: + abnormal opening sounds (mechanical valve sounds mitral position); no gallop, no murmur and no cardiac rub Vessels: no JVD Extremities: no calf tenderness and no edema Gastrointestinal (Abdomen): normal bowel sounds, soft, nontender, no hepatosplenomegaly resolving hematoma / ecchymosis left flank Musculoskeletal: Extremities: + extremities abnormal to inspection (resolving hematoma left knee) Skin: no rashes, warm and dry Psychiatric: Orientation: alert and oriented x 3 Results & Data Vital Signs (Past 12 Hours) Vital Signs Temp Pulse Resp BP Pulse Ox 10/08/18 15:04 36.9 C 93 H 18 130/58 L 95 10/08/18 07:18 36.8 C 90 16 111/71 100 Laboratory Results Laboratory Results - last 24 hr 10/08/18 10/08/18 10/08/18 08:23 09:33 12:26 PT 27.2 H INR 2.9 H POC Glucose 137 H 101 H 10/08/18 17:23 PT INR POC Glucose 83 (1) Hemarthrosis involving knee joint Laterality: left Qualified Code(s): M25.062 - Hemarthrosis, left knee (2) Atrial fibrillation Atrial fibrillation type: unspecified Qualified Code(s): I48.91 - Unspecified atrial fibrillation (3) Diabetes type 2, controlled Diabetes mellitus intermodal dispatcher insulin use: without intermodal dispatcher use Diabetes mellitus complication status: without complication Qualified Code(s): E11.9 - Type 2 diabetes mellitus without complications (4) S/P TKR (total knee replacement) Laterality: left Qualified Code(s): Z96.652 - Presence of left artificial knee joint (5) Coronary artery disease Coronary Disease-Associated Artery/Lesion type: [place] artery [place] vs. transplanted heart: [place] heart Associated angina: without angina Qualified Code(s): I25.10 - Atherosclerotic heart disease of [place] coronary artery without angina pectoris
--- NOTE | 2018-10-09 05:07 | Discharge Summary ---
Date of Service Date of Admission: 09/23/18 Date of Discharge: 10/08/18 Admission HPI Per Admitting Provider The patient is a 63 year old female who presents with complaints of severe left knee pain and DJD. The patient has failed outpatient conservative treatments to this point which included NSAIDS, corticosteroid injection, PT and a home exercise/walking program. The patient's pain and limited function have progressed to the point where they severely hinder their activities of daily living and they no longer tolerate exercise programs. They are requesting to proceed with total knee replacement surgery. Principal Diagnosis osteoarthritis left knee postoperative left knee hemarthrosis postoperative left flank hematoma acute blood loss anemia Discharge Data Allergies Allergy/AdvReac Type Severity Reaction Status Date / Time prochlorperazine Allergy Severe NUCHAL Verified 09/23/18 05:33 DYSTONIA promethazine Allergy Severe NUCHAL Verified 09/23/18 05:33 DYSTONIA PERRY Inhibitors Allergy Intermediate COUGH Verified 09/23/18 05:33 hydroxyzine Allergy Unknown DYSTONIA Verified 09/23/18 05:33 lisinopril AdvReac Intermediate Cough Verified 09/23/18 05:33 metformin AdvReac Intermediate DIARRHEA Verified 09/23/18 05:33 tetracycline AdvReac Intermediate DYSPEPSIA Verified 09/23/18 05:33 parsley AdvReac Mild AGITATION Verified 09/23/18 05:33 Consultations 09/23/18 11:06 Consult Case Management - Discharge Planning Routine Consult Hospitalist Routine 09/26/18 12:54 Consult Cardiology Routine 09/28/18 11:59 Consult Orthopedic Surgery Routine Procedures Performed Operation Date: 09/23/18 07:15 Actual Procedures p Left Total Knee Arthroplasty(Left) - Watson Cormier DO Ordered Studies 09/23/18 05:00 US - OR guided needle placemen Routine 09/28/18 15:08 CT knee LT wo con Urgent 09/28/18 15:12 CT tib/fib LT wo con Urgent Hospital Course (1) S/P TKR (total knee replacement): Left total knee arthroplasty performed by Dr. Cormier on 09/23/18. Postoperative course complicated by hemarthrosis left knee and spontaneous left flank hematosis as discussed above. Ambulating with walker. Arrangements made for home health services with PT and OT. (2) Hemarthrosis involving knee joint: Developed hemarthrosis left knee after total knee arthroplasty, associated with bridging anticoagulation and antiplatelet therapy with clopidogrel. Hemarthrosis resolving. (3) Acute blood loss as cause of postoperative anemia: Preoperative hemoglobin was 10.3 on 09/08/2018. Hemoglobin postoperatively on 09/24 was 7.3. Developed large hemarthrosis left knee and spontaneous hematoma left flank in setting of bridge therapy for mechanical mitral valve and atrial fibrillation; was also receiving antiplatelet therapy with clopidogrel. Required transfusion of 4 units of packed RBCs. Hemoglobin stable at 9.7 on 10/07/2018. Discharge on ferrous sulfate. Monitor H/H. (4) Coronary artery disease: No anginal symptoms. No antiplatelet therapy because of postoperative bleeding complications. Continue metoprolol and statin. (5) H/O mitral valve replacement with mechanical valve: Continue anticoagulation with warfarin. INR 2.9 day of discharge. Discharge on warfarin 5 mg daily. Ongoing management per [facility]. (6) Atrial fibrillation: Chronic atrial fibrillation with underlying rheumatic heart disease. Rate controlled with metoprolol. Continue anticoagulation with warfarin. (7) History of CVA (cerebrovascular accident): High risk for cardioembolic neurologic events due to chronic atrial fibrillation and mechanical mitral valve replacement. Followed by [facility]. History of suspected TIA in past and clopidogrel was added to warfarin management. Postoperative hemarthrosis left knee and spontaneous left flank hematoma postoperatively. Once active bleeding had resolved, patient was started on IV heparin and warfarin was restarted. [place] that risks of antiplatelet therapy outweigh the benefits at this time. Clopidogrel discontinued. (8) Diabetes type 2, controlled: Diabetes mellitus type 2, well controlled with dietary management. Hemoglobin A1c 5.8 on 09/08/2018. Received insulin coverage as necessary. Fasting blood sugar day of discharge 137. (9) Hypothyroidism: Continue levothyroxine. (10) DVT prophylaxis: Currently receiving warfarin with therapeutic INR. (11) Discharge planning issues: Discharged home with services. Family Medicine follow-up with Dr. Blanco. Follow-up with [facility]. Ortho follow-up with Dr. Cormier. Total Time Total Time Spent Total Time Spent (In Minutes): 45 Discharge Plan Discharge Items Patient Disposition: Home - Home Health Services Reason For Visit: LEFT KNEE OSTEOARTHRITIS Discharge Diagnosis: left total knee replacement; blood collection left knee; anemia Condition: Good Discharge Goals: Decrease discomfort, Improve function, Increase independence and Therapeutic intervention Activity: Per 'Additional Instructions' section Lifting: Wait until after follow-up appointment Bathing Comment: No bathing, pools or hot tubs. Sexual Activity: Wait until after follow-up appointment Exercise/Sports: Wait until after follow-up appointment Driving/Machine Use Comment: No driving till cleared by your surgeon Weightbearing: Left weightbearing Non-emergency contact: Primary Care Provider, Hospitalist and Surgeon Call non-emergency contact if: you have any medication questions, your symptoms worsen, your pain is not controlled, your pain is worsening, your pain is unusual for you, your pain is concerning for you, you have a fever, your temperature is above 101, your wound has increased redness, your wound has increased drainage and your wound pain has increased Follow-up/Referrals: John Blanco MD [Primary Care Provider] - 10/01/18 12:45 pm (10/13/2018 3:00 PM John Blanco MD) Watson Cormier DO [Physician] - (Please call office for appointment next week.) Diet: Heart Healthy Addtl Provider Instructions: ACTIVITY RECOMMENDATIONS: SELF CARE INSTRUCTIONS AFTER TOTAL KNEE REPLACEMENT A. You may need to continue a physical therapy program after discharge from the hospital. There are several options available to you. Your doctor will assist you in selecting the best one for you. 1. An out-patient facility 2 to 3 times a week for therapy or home therapy. 2. Continue working on all exercises taught to you in the hospital. Your goals should be to increase bending of your knee to 90 degrees and beyond and to fully straighten your knee. B. You may progress at your own pace from walking with a walker or crutches to a cane; then to no assistive devices. C. Make walking a part of your daily routine. Be up as much as comfortable with rest periods throughout the day. Rest with leg elevation is very important. Use the ice wrap frequently for the first 3-4 weeks. D. There are no restrictions on activities. You may ride in a car, shop, participate in loan officer assistant and all social activities. E. Wear the long elastic stockings (WOLFGANG hose) 20 hours a day for 2 weeks after surgery. They can be removed several times a day for laundering and for a bath. F. You may shower, no tub baths until cleared by your doctor. SPECIAL CARE INSTRUCTIONS: VERY IMPORTANT TO READ AND REVIEW A. There are a few signs you need to watch for after you are home. Call [facility] if you notice any of the followin. Increased severe knee pain. Some pain is expected especially when you exercise. 2. Increased swelling in your leg or knee; pain or swelling of the calf muscle in either lower leg. 3. Any fluid drainage from the incision. 4. Shortness of breath or chest pain. B. Please call [facility] at if you have any concerns or questions about your operation or recovery. The doctor or his nurse will return your call promptly. C. You must take antibiotics before dental work, bladder, bowel or other surgery. Your doctor will provide you with a permanent care to carry describing this precaution. IMPORTANT: * REMEMBER TO TAKE YOUR COUMADIN DIRECTED. INR goal 2.5-3.5, hx mitral valve. THIS IS YOUR BLOOD THINNER. * HIGH RISK PATIENTS MAY BE PRESCRIBED A STRONGER BLOOD THINNER. THIS WILL BE PROVIDED AT DISCHARGE. * CALL IF INCREASED PAIN, REDNESS, DRAINAGE OR FEVER GREATER THAT 101. * WEAR WOLFGANG HOSE 20 HOURS PER DAY FOR 2 WEEKS. * YOU MAY HAVE A LARGE BAND-AID LIKE DRESSING (SILVERON). THIS WILL REMAIN ON YOUR INCISION FOR 7 DAYS, THEN CAN BE REMOVED. IF INCISION IS LEAKING THROUGH DRESSING, CALL THE OFFICE . FOLLOW UP VISIT: If appointment is not already scheduled: Please call [facility] to make a follow-up appointment for 2 weeks after your surgery at . CONTINUE COUMADIN PREVIOUSLY DIRECTED BY [facility] Follow up with Coumadin clinic PER SCHEDULE TAKE STOOL SOFTENER TO PREVENT CONSTIPATION WHILE TAKING PAIN MEDS MEDICAL INSTRUCTIONS: MEDICATION CHANGES: STOP clopidogrel (Plavix) because of severe brusing / bleeding. STOP enoxaparin (Lovenox). Change metoprolol tartrate (Lopressor) to 25 mg twice a day. Change warfarin (Coumadin) to 5 mg daily until otherwise instructed by Anticoagulation Clinic. Take ferrous sulfate (iron pill) daily with lunch. Take ascorbic acid (vitamin C) daily with lunch - helps body absorb iron better. SUMMARY OF TEST RESULTS: 10/08/18 INR 2.9 10/07/18 hemoglobin level 9.7 PENDING TEST RESULTS: none RECOMMENDATIONS FOR FOLLOW-UP: Please make certain that Home Health Nursing checks INR by Tuesday 10/10, then as instructed by Anticoagulation Clinic. OTHER INSTRUCTIONS: Seek medical attention if you have: * temperature above 101 * chest pain or trouble breathing * abdominal pain, nausea, vomiting * diarrhea, dark stools or bloody stools * abnormal bleeding or bruising * any unanswered questions or concerns Call 911 if symptoms are severe. Please take good care of yourself. Call if you have any questions or problems. You can reach a [facility] hospitalist on duty at [facility] 24 hours a day by calling [phone]. My cell # is [phone]. Prescriptions: New sennosides [Senokot] 8.6 mg Tablet 17.2 mg PO HS PRN (Reason: constipation) Qty: 28 RF: 0 metoprolol tartrate 25 mg Tablet 25 mg PO BID Qty: 60 RF: 5 ferrous sulfate 325 mg (65 mg iron) tablet,delayed release (DR/EC) 325 mg PO DAILY Qty: 30 RF: 0 ascorbic acid (vitamin C) 500 mg tablet 500 mg PO DAILY Qty: 30 RF: 0 Continued acetaminophen [Tylenol Extra Strength] 500 mg Tablet 500 mg PO Q6H PRN (Reason: Pain) RF: 0 levothyroxine 100 mcg tablet 100 mcg PO QAM RF: 0 metoclopramide HCl [Reglan] 10 mg Tablet 10 mg PO AC PRN (Reason: Nausea) RF: 0 furosemide 40 mg tablet 40 mg PO [id number] RF: 0 folic acid 1 mg Tablet 1 mg PO QAM Qty: 30 RF: 0 thiamine HCl (vitamin B1) [Vitamin B-1] 50 mg Tablet 50 mg PO QAM Qty: 30 RF: 0 potassium 1 tab PO DAILY RF: 0 amitriptyline 25 mg Tablet 50 mg PO BID RF: 0 ropinirole 2 mg tablet 2 mg PO TID RF: 0 tramadol 50 mg tablet 50 mg PO TID PRN (Reason: Pain) RF: 0 nitroglycerin [Nitrostat] 0.4 mg Tablet, Sublingual 0.4 mg Sublingual DIRECTED PRN (Reason: Chest Pain) RF: 0 omeprazole 20 mg Capsule,Delayed Release(Dr/Ec) 20 mg PO PM RF: 0 cholecalciferol (vitamin D3) [Vitamin D3] 1,000 unit Capsule 1,000 unit PO QAM RF: 0 rosuvastatin 10 mg Tablet 10 mg PO QPM RF: 0 Changed warfarin 5 mg Tablet See Rx Instructions .ROUTE .COMPLEX Qty: 0 RF: 0 Discontinued warfarin 5 mg Tablet 7.5 mg PO 4XWK RF: 0 clopidogrel 75 mg Tablet 75 mg PO QAM Qty: 30 RF: 0 enoxaparin [Lovenox] 60 mg/0.6 mL Syringe 50 mg SUBCUT Q12H RF: 0 tramadol 50 mg Tablet 50 mg PO TID PRN (Reason: Pain) RF: 0 metoprolol tartrate 25 mg Tablet 25 mg PO QAM RF: 0 Stand-Alone Forms: [email or web address], Opioid Pain Management Krames/Other Patient Handouts: Surgery Prevent DVT After Discharge Orders: Discharge Order (Routine); Ordered 10/08/18 Ordered By: Aditya Bangura Admission Data Admit Date/Time: 09/23/18 10:21 Attending Provider: Aditya Bangura Admit Provider: Watson Cormier Primary Care Provider: John Blanco Other Providers: Cristin Mcguire ; Judith Villanueva ; Miki Ruelas ; Judd Sutton ; Hadley Molina ; Nehemias Salcido ; Moris Spivey ; Thierry Puente ; Cristal Vu ; Naomi Vila ; Watson Cormier ; Long Dugan. Service: Medical Other Interventions: Discharge Summary Assessment (RN) Last Done: 10/08/18 18:58 Pending Studies at Discharge: No DC Date/Time DO NOT enter until pt leaves facility: 10/08/18 19:39
--- NOTE | 2018-10-09 10:23 | Communication Note ---
Date of Service: October 09, 2018 [facility] in [place] called and given update on hospital course and antithrombotic management.
== END 2018-10-08 19:39 | disposition home health service (06) | DRG 470 ==
LOC: ASU 04:52 → SUATTDRO 10:21 → 2N 10:21 → 2E 09-29 18:14 → 3E 10-05 11:50

== ENCOUNTER 2019-01-13 05:14 | Inpatient (IN) ==
--- NOTE | 2018-12-18 12:47 | PAT Medication Instructions ---
Medication Instructions Date of Service December 18, 2018 Home Medications Medication Instructions Recorded folic acid 1 mg PO QAM #30 tab 05/21/18 thiamine HCl (vitamin B1) [Vitamin 50 mg PO QAM #30 tab 05/21/18 B-1] sennosides [Senokot] 17.2 mg PO HS PRN #28 tab 09/24/18 ascorbic acid (vitamin C) 500 mg PO DAILY #30 tab 10/08/18 ferrous sulfate 325 mg PO DAILY #30 tab 10/08/18 metoprolol tartrate 25 mg PO BID #60 tab 10/08/18 cholecalciferol (vitamin D3) [Vitamin D3] 1,000 unit PO QAM nitroglycerin [Nitrostat] 0.4 mg SUBLINGUAL DIRECTED PRN omeprazole 20 mg PO PM rosuvastatin 10 mg PO QPM acetaminophen [Tylenol Extra Strength] 500 mg PO Q6H PRN furosemide 40 mg PO QAM levothyroxine 100 mcg PO QAM metoclopramide HCl [Reglan] folic acid 1 mg PO QAM thiamine HCl (vitamin B1) [Vitamin B-1] 50 mg PO QAM sennosides [Senokot] 17.2 mg PO HS PRN amitriptyline 50 mg PO BID ascorbic acid (vitamin C) 500 mg PO DAILY ferrous sulfate 325 mg PO DAILY metoprolol tartrate 25 mg PO BID ropinirole 2 mg PO TID potassium chloride 10 meq PO QAM warfarin 5 mg PO 3XWK warfarin 7.5 mg PO 4XWK tramadol 50 mg PO TID PRN Continue as directed nitroglycerin [Nitrostat] 0.4 mg SUBLINGUAL DIRECTED PRN (if needed) ASK your prescriber and surgeon warfarin 5 mg PO 3XWK warfarin 7.5 mg PO 4XWK STOP taking 24 hours before surgery ropinirole 2 mg PO TID DO NOT take the morning of surgery cholecalciferol (vitamin D3) [Vitamin D3] 1,000 unit PO QAM furosemide 40 mg PO QAM metoclopramide HCl [Reglan] folic acid 1 mg PO QAM thiamine HCl (vitamin B1) [Vitamin B-1] 50 mg PO QAM ascorbic acid (vitamin C) 500 mg PO DAILY ferrous sulfate 325 mg PO DAILY potassium chloride 10 meq PO QAM Take morning of surgery With a small sip of water, OTHERWISE NOTHING TO EAT OR DRINK AFTER MIDNIGHT: acetaminophen [Tylenol Extra Strength] 500 mg PO Q6H PRN (okay to take up to 4 hours prior to surgery if needed) levothyroxine 100 mcg PO QAM amitriptyline 50 mg PO BID metoprolol tartrate 25 mg PO BID tramadol 50 mg PO TID PRN (okay to take up to 4 hours prior to surgery if needed) Other Notes If you have any questions please call us at [phone] or [phone] or [phone] or [phone]
--- NOTE | 2018-12-18 13:16 | Anesthesiology Consultation ---
Date of Service December 18, 2018 Assessment & Plan (1) Encounter for pre-operative examination: - Awaiting review preop testing (labs). - Awaiting surgeon-ordered PCP preop evaluation scheduled 12/18 (S). - Cardiology: 12/17/18: hx post-op blood transfusion. "This patient's bleeding last event likely a combination of issues including risk response to anticoagulation resumption postoperatively and variable renal function. Patient aware of potential risks and wishes to proceed with knee surgery at this time." "No cardiac contraindications to surgery as planned.. Agree with plans for perioperative Lovenox bridging. Would not resume warfarin evening postop of surgery. Would recommend telemetry postoperatively. BMP postoperatively a reassess renal function and potentially adjust Lovenox dosing if acute decline." - S/P Left TKA: 09/23/18: Grade view 1, MAC#3, ETT 7 + PNB at [facility] (done under [place] as patient was on plavix at that time/unable to hold 7 days prior to surgery-- plavix since discontinued indefinitely by provider/did not feel patient needed to continue on this) - Check [facility] AM DOS Chart Review Chart Review: Patient seen in Pre Admission Testing Teaching & Discussion Pre-Anesthesia Teaching/Discussion Notes: Instructed NPO after midnight before surgery,except medications with 15 cc of water. Medication instructions provided according to the PAT guidelines. History Surgery Operation Date: 01/13/19 11:25 Proposed Procedures p Right Total Knee Arthroplasty - Watson Cormier, Height/Weight Height: 5 ft 1 in Weight: 56.1 kg Allergies Allergy/AdvReac Type Severity Reaction Status Date / Time prochlorperazine Allergy Severe NUCHAL Verified 12/10/18 13:30 DYSTONIA promethazine Allergy Severe NUCHAL Verified 12/10/18 13:30 DYSTONIA PERRY Inhibitors Allergy Unknown COUGH Verified 12/10/18 13:30 hydroxyzine Allergy Unknown DYSTONIA Verified 12/10/18 13:30 oxycodone Allergy Unknown Numbness Verified 12/10/18 13:49 lisinopril AdvReac Unknown Cough Verified 12/10/18 13:30 metformin AdvReac Unknown DIARRHEA Verified 12/10/18 13:30 parsley AdvReac Unknown AGITATION Verified 12/10/18 13:30 tetracycline AdvReac Unknown DYSPEPSIA Verified 12/10/18 13:30 NAUSEA MEDICINES Allergy Unknown SEE NOTE Uncoded 12/10/18 13:51 BELOW Medications Home Medications Medication Instructions Recorded Confirmed Last Taken cholecalciferol (vitamin D3) 1,000 unit PO QAM 12/05/17 12/10/18 10/22/18 [Vitamin D3] nitroglycerin [Nitrostat] 0.4 mg SUBLINGUAL DIRECTED PRN 12/05/17 12/10/18 12/15/17 omeprazole 20 mg PO PM 12/05/17 12/10/18 10/21/18 rosuvastatin 10 mg PO QPM 12/05/17 12/10/18 10/21/18 acetaminophen [Tylenol Extra 500 mg PO Q6H PRN 05/18/18 12/10/18 05/17/18 20:00 Strength] 1000mg furosemide 40 mg PO QAM 05/18/18 12/10/18 09/22/18 09:30 levothyroxine 100 mcg PO QAM 05/18/18 12/10/18 10/22/18 metoclopramide HCl [Reglan] 10 mg PO UD PRN 05/18/18 12/10/18 05/16/18 folic acid 1 mg PO QAM #30 tab 05/21/18 12/10/18 10/22/18 thiamine HCl (vitamin B1) [Vitamin 50 mg PO QAM #30 tab 05/21/18 12/10/18 10/22/18 B-1] sennosides [Senokot] 17.2 mg PO HS PRN #28 tab 09/24/18 12/10/18 Unknown amitriptyline 50 mg PO BID 10/08/18 12/10/18 10/22/18 ascorbic acid (vitamin C) 500 mg PO DAILY #30 tab 10/08/18 12/10/18 10/22/18 ferrous sulfate 325 mg PO DAILY #30 tab 10/08/18 12/10/18 10/22/18 metoprolol tartrate 25 mg PO BID #60 tab 10/08/18 12/10/18 10/22/18 25MG ropinirole 2 mg PO TID 10/08/18 12/10/18 10/22/18 potassium chloride 10 meq PO QAM 10/22/18 12/10/18 10/22/18 warfarin 5 mg PO 3XWK 0912/10/18 10/21/18 warfarin 7.5 mg PO 4XWK 10/22/18 12/10/18 Unknown tramadol 50 mg PO TID PRN 12/10/18 12/10/18 Unknown Past Medical History Medical History Anemia chronic; baseline hgb 9-10 range per chart review A-fib Anxiety CKD (chronic kidney disease), stage III Diabetes diet controlled GERD (gastroesophageal reflux disease) controlled HTN (hypertension) History of blood transfusion autologous s/p MVR (1993), 09/2018 (post-op) Hx of myocardial infarction 2000, medical management Hyperlipidemia Hypothyroidism Migraines 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 migraine vs. stress related)-- plavix since discontinued Exercise / Class Metabolic Activity III < 4 Walking/Shop/Light housework Past Family History Family History Uncle , of [place] in his 40s Coronary heart disease Past Surgical History Surgical History H/O radioactive iodine thyroid ablation H/O: hysterectomy History of cardiac cath 2000= NO STENTS History of colonoscopy History of tonsillectomy and adenoidectomy History of total left knee replacement Hx of appendectomy Hx of cholecystectomy Hx of mitral valve replacement 1993 (rheumatic valvular disease) Hx of tubal ligation Past Anesthesia History No Hx of Anesthesia Complications and No Family Hx of Anesthesia Complications History of PONV No Hx of PONV and No Hx of Motion Sickness Social History Smoking Status: Never smoker Do You Dip or Chew Tobacco: No Hx Alcohol Use: Yes Alcohol type: wine alcohol intake frequency: 0-2 drinks per day Alcohol Intake Frequency Comment: 1 GLASS A DAY Hx Substance Use: No Review of Systems Patient denies chest pain, shortness of breath, cough, wheezing, palpitations. Physical Exam Vital Signs VITALS BP 127/72 P 75 TEMP 98.3 SP02 98%Ra RESP 16 PHYSICAL Full neck and c-spine range of motion. Full TMJ range of motion. TMD 3 finger breaths Mallampati Score 2 Dentition: full dentures upper/lower; edentulous Lungs: clear throughout to auscultation Cardiac: regular rate, irregular rhythm, + click noted Spine: normal Carotid arteries: negative bruit Extremities: no edema Testing Electrocardiogram Date: 10/22/18 A fib at 82bpm. LAD. Chest X-Ray Date: 10/22/18 Cardiac silhouette is enlarged, unchanged. Prior median sternotomy with cardiac valve prosthesis. No pneumothorax, pleural effusion, or overt pulmonary edema. Minimal linear subsegmental atelectasis/scarring of the left lung base. Degenerative changes of the shoulders and spine. Cardiomegaly without acute process. Echocardiogram Date: 05/19/18 EF 60-65%. No RWMA. MC central tilting disc (Roe Medtronic type) mechanical p rosthesis present. Prosthetic valve leaflet is freely mobile. MV prosthesis systolic gradients are borderline elevated and indeterminate for obstruction. Doppler findings do not suggest pulmonary HTN No significant MR visualized (but assessment limited due to presence of acoustic shadowing). Moderate TR. Mild to moderate AR. No significant interval change 12/06/17. Other Testing Carotid ultrasound: 05/19/18: There is no sonographic evidence of hemodynamically significant stenosis in the right or left carotid arterial system. Antegrade flow is shown in the vertebral arteries.
[2018-12-18 14:16] LABS: Appearance Urine Clear (Clear); Bilirubin Urine Negative (Negative); Blood Urine Negative (Negative); Color Urine Yellow; Glucose Urine UA Negative (Negative); Ketones Urine Negative (Negative); Leukocyte Esterase Urine Negative (Negative); Nitrite Urine Negative (Negative); Protein Urine Negative (Negative); Urobilinogen Urine Negative (Negative); pH Urine 7.5 (4.5-7.5)
[2018-12-18 14:20] LABS: Basophils # (auto) 0.02 K/uL (0-0.2); Basophils % (auto) 0.4 %; Eosinophils # (auto) 0.16 K/uL (0-0.5); Eosinophils % (auto) 3.5 %; Hematocrit (blood only) 34.1 % (37-47); Hemoglobin 10.8 g/dL (12.0-16.0); Immature Granulocytes # (auto) 0.01 K/uL (0.00-0.02); Immature Granulocytes % (auto) 0.2 %; Lymphocytes # (auto) 0.82 K/uL (1.2-3.4); Lymphocytes % (auto) 17.9 %; Mean Corpuscular Hemoglobin 28.2 pg (25-34); Mean Corpuscular Hgb Conc 31.7 g/dL (32-36); Mean Platelet Volume 10.4 fL (7.4-10.4); Monocytes # (auto) 0.42 K/uL (0.11-0.59); Monocytes % (auto) 9.2 %; Neutrophils # (auto) 3.16 K/uL (1.4-6.5); Neutrophils % (auto) 68.8 %; Platelet Count 176 K/uL (130-400); Red Blood Count 3.83 M/uL (4.2-5.4); White Blood Count 4.59 K/uL (4.8-10.8)
[2018-12-18 14:24] LABS: BUN Creatinine Ratio 10.2 (10-20); Calcium 9.9 mg/dl (8.5-10.1); Creatinine Clr Calc Pharmacy 33.3 ml/min; Est GFR (African American) 51.3; Est GFR (Non-African American) 44.3; Potassium 3.9 mmol/L (3.5-5.1)
[2018-12-18 14:35] LABS: Estimated Average Glucose 126 mg/dl
[2018-12-18 14:38] LABS: Partial Thromboplastin Ratio 1.8; Prothrombin Time 34.5 Seconds (9.0-12.0)
[2018-12-18 14:40] LABS: INR 3.7 (0.9-1.1)
[2018-12-18 14:48] LABS: Partial Thromboplastin Time 47.9 Seconds (21.0-31.0)
--- NOTE | 2019-01-12 13:20 | History & Physical Report ---
Date of Service January 12, 2019 Assessment & Plan (1) Tricompartment degenerative joint disease of knee: I have indicated the patient for right total knee replacement. The risks, benefits and complications of surgery were explained to the patient which include but not limited to infection, acute blood loss, DVT/PE, injury to nerves, vessels, bone, soft tissue, arthrofibrosis, chronic pain, failure of the prosthesis, knee dislocation, leg length discrepancy, need for additional surgery, cardiac and pulmonary events and . The patient wished to proceed with surgery and informed consent was obtained at this time. We will plan for Lovenox 40mg BID post-operatively for DVT prophylaxis. The patient will then be bridged to her home coumadin dose when appropriate. Upon discharge the patient will be discharged home with home health services. Appropriate clearances by PCP, Cariology were obtained. The patient is followed by coumadin clinic. History of Present Illness Chief Complaint: Right knee pain/djd Primary Care Provider: John Blanco MD The patient is a 63 year old female who presents with complaints of severe right knee pain and DJD. The patient has failed outpatient conservative treatments to this point which included NSAIDs, IA corticosteroid, REYES injections, PT, home exercise/walking program. The patient's pain and limited function have progressed to the point where they severely hinder their activities of daily living and they no longer tolerate exercise programs. They are requesting to proceed with total knee replacement surgery. Allergies Allergy/AdvReac Type Severity Reaction Status Date / Time prochlorperazine Allergy Severe NUCHAL Verified 01/13/19 05:45 DYSTONIA promethazine Allergy Severe NUCHAL Verified 01/13/19 05:45 DYSTONIA PERRY Inhibitors Allergy Unknown COUGH Verified 01/13/19 05:45 hydroxyzine Allergy Unknown DYSTONIA Verified 01/13/19 05:45 oxycodone Allergy Unknown Numbness Verified 01/13/19 05:45 lisinopril AdvReac Unknown Cough Verified 01/13/19 05:45 metformin AdvReac Unknown DIARRHEA Verified 01/13/19 05:45 parsley AdvReac Unknown AGITATION Verified 01/13/19 05:45 tetracycline AdvReac Unknown DYSPEPSIA Verified 01/13/19 05:45 NAUSEA MEDICINES Allergy Unknown SEE NOTE Uncoded 01/13/19 05:45 BELOW Home Medications Home Medications Medication Instructions Recorded Confirmed Type cholecalciferol (vitamin D3) 1,000 unit PO QAM 12/05/17 01/13/19 History [Vitamin D3] nitroglycerin [Nitrostat] 0.4 mg SUBLINGUAL DIRECTED PRN 12/05/17 01/13/19 History omeprazole 20 mg PO PM 12/05/17 01/13/19 History rosuvastatin 10 mg PO QPM 12/05/17 01/13/19 History acetaminophen [Tylenol Extra 500 mg PO Q6H PRN 05/18/18 01/13/19 History Strength] furosemide 40 mg PO QAM 05/18/18 01/13/19 History levothyroxine 100 mcg PO QAM 05/18/18 12/10/18 History metoclopramide HCl [Reglan] 10 mg PO UD PRN 05/18/18 01/13/19 History folic acid 1 mg PO QAM #30 tab 05/21/18 01/13/19 Rx thiamine HCl (vitamin B1) [Vitamin 50 mg PO QAM #30 tab 05/21/18 01/13/19 Rx B-1] sennosides [Senokot] 17.2 mg PO HS PRN #28 tab 09/24/18 01/13/19 Rx amitriptyline 50 mg PO BID 10/08/18 12/10/18 History ascorbic acid (vitamin C) 500 mg PO DAILY #30 tab 10/08/18 01/13/19 Rx ferrous sulfate 325 mg PO DAILY #30 tab 10/08/18 01/13/19 Rx metoprolol tartrate 25 mg PO BID #60 tab 10/08/18 12/10/18 Rx ropinirole 2 mg PO TID 10/08/18 01/13/19 History potassium chloride 10 meq PO QAM 10/22/18 01/13/19 History warfarin 5 mg PO 3XWK 10/22/18 01/13/19 History warfarin 7.5 mg PO 4XWK 10/22/18 01/13/19 History tramadol 50 mg PO TID PRN 12/10/18 01/13/19 History enoxaparin [Lovenox] 40 mg SUBCUT Q12H 01/13/19 01/13/19 History Past Med/Surg History Medical History A-fib Anemia chronic; baseline hgb 9-10 range per chart review Anxiety CKD (chronic kidney disease), stage III Diabetes diet controlled GERD (gastroesophageal reflux disease) controlled History of blood transfusion autologous s/p MVR (1993), 09/2018 (post-op) HTN (hypertension) Hx of myocardial infarction 2000, medical management Hyperlipidemia Hypothyroidism Migraines 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 migraine vs. stress related)-- plavix since discontinued Surgical History H/O radioactive iodine thyroid ablation H/O: hysterectomy History of cardiac cath 2000= NO STENTS History of colonoscopy History of tonsillectomy and adenoidectomy History of total left knee replacement Hx of appendectomy Hx of cholecystectomy Hx of mitral valve replacement 1993 (rheumatic valvular disease) Hx of tubal ligation Family History Uncle , of [place] in his 40s Coronary heart disease Social History Preferred Language: Lithuanian Communication Ability: Effective Carton Wrapper Required: No Beliefs That Will Affect Care: None marital status: Single Current Living Situation: Other Current Living Situation Comment: MOTHER current occupational status: disabled Other Information That Helps Us Care for You: No Feels Safe at Home: Yes Smoking Status: Never smoker Do You Dip or Chew Tobacco: No ; Second Hand Exposure: No ; Hx Alcohol Use: Yes Alcohol type: wine Hx Substance Use: No Review of Systems Review of Systems: All systems reviewed & are unremarkable except as noted in HPI & below Constitutional: as per Subjective / HPI Physical Exam Physical Exam: RLE NVSI +EHL/FHL/TA/GS SILT grossly, +2 DP pulse, compartments soft NT, limited painful ROM, 5-90 degrees flexion, +crepitus. Constitutional: WD/WN, vitals as above Eyes: PERRL, conjunctivae normal, anicteric sclerae ENMT: external ear and nose normal, oropharynx normal Neck: trachea midline, no thyromegaly Respiratory: normal respiratory effort, lungs clear to auscultation Cardiovascular: RRR, no murmur, no edema Gastrointestinal (Abdomen): normal bowel sounds, soft, nontender, no hepatosplenomegaly Musculoskeletal: no cyanosis or clubbing, extremities motor strength 5/5 Skin: no rashes, warm and dry Neurologic: patellar DTR's 2+ bilat, sensation intact Psychiatric: A+Ox3, euthymic affect Lymphatic: no cervical or axillary lymphadenopathy Results & Data Diagnostic Findings Multiple views of the knee demonstrates severe tricompartmental DJD with complete loss of the medial joint space, moderate loss of the PF joint space. +osteophytes, +sclerosis.
[2019-01-13] MEDS ORDERED: ROPIVACAINE 0.5% HCL/PF 150 MG, BUPIVACAINE 0.5% MPF 30 ML, EPINEPHrine 30MG/30ML (OR U... INSTIL SCH (06:00)
[2019-01-13] MEDS ORDERED: ACETAMINOPHEN 500 MG TAB PO SCH (06:00)
[2019-01-13] MEDS ORDERED: TRANEXAMIC ACID 1,000 MG **IV Pre-op IV SCH (06:00)
[2019-01-13] MEDS ORDERED: CEFAZOLIN 1000MG 1,000 MG/7.5 ML SYR IV SCH (06:00)
[2019-01-13] MEDS ORDERED: LR 500ML BOLUS, THEN 15ML/HR IV SCH (06:00)
[2019-01-13] MEDS ORDERED: CeleBREX 200 MG CAP PO SCH (06:00)
[2019-01-13] MEDS ORDERED: METOCLOPRAMIDE HCL 10 MG TABLET PO SCH (06:00)
[2019-01-13] MEDS ORDERED: GABAPENTIN 300 MG CAP PO SCH (06:00)
[2019-01-13 06:16] LABS: Partial Thromboplastin Ratio 1.1; Partial Thromboplastin Time 28.5 Seconds (21.0-31.0); Prothrombin Time 10.4 Seconds (9.0-12.0)
[2019-01-13] MEDS ORDERED: BUPIVACAINE 0.5 % 5 MG/1 ML PF 10ML VIAL ONE (06:24)
[2019-01-13] MEDS ORDERED: BUPIVACAINE/EPINEPHRINE 0.25% 1:200,000 30 ML VIAL ONE (06:25)
[2019-01-13] MEDS ORDERED: TRANEXAMIC ACID 1,000 MG **IV Intra-op IV SCH (06:30)
[2019-01-13] MEDS ORDERED: ORTHO JOINT ANESTHETIC ONE (06:56)
[2019-01-13] MEDS ORDERED: BACITRACIN INJ 50,000 UNIT VIAL ONE (06:56)
[2019-01-13] MEDS ORDERED: PROPOFOL IV EMULSION 10 MG/ML 20 ML VIAL IV ONE (07:01)
[2019-01-13] MEDS ORDERED: LIDOCAINE HCL 2% 2 ML VIAL/AMP(20MG/ML) INFIL ONE (07:01)
[2019-01-13] MEDS ORDERED: MIDAZOLAM HCL 1 MG/ML 2ML VIAL ONE (07:01)
--- NOTE | 2019-01-13 07:04 | History & Physical Bridge Note ---
Date of Service January 13, 2019 History & Physical Bridge Note I have examined the patient, reviewed the History & Physical and in the interval since the performance of the History & Physical I have noted the following changes of clinical significance: no changes noted
[2019-01-13] MEDS ORDERED: ATROPINE SULFATE 0.1 MG/ML 10ML SYR IV PRN (07:28)
[2019-01-13] MEDS ORDERED: ePHEDrine sulfate 50 MG/ML AMP IV PRN (07:28)
[2019-01-13] MEDS ORDERED: fentaNYL citrate 100 MCG/2 ML VIAL IV PRN (07:28)
[2019-01-13] MEDS ORDERED: PHENYLEPHRINE HCL 10 MG/ML VIAL ONE (08:09)
--- NOTE | 2019-01-13 08:50 | Post Operative Brief Note ---
Immediate Post Op Note v1 Date of Surgery January 13, 2019 Pre & Post Diagnosis Operation Date: 01/13/19 07:15 Pre-Op Diagnosis: Unilateral Primary Osteoarthritis, Right Knee Post-Op Diagnosis: Unilateral Primary Osteoarthritis, Right Knee I identified the patient and participated in the time-out.: Yes Procedure Operation Date: 01/13/19 07:15 Actual Procedures p Right Total Knee Arthroplasty(Right) - Watson Cormier DO Surgeon Watson Cormier DO Tender Coordinator Aleksandr Wolfe Estimated Blood Loss 50 Findings Consistent with Post-Op Diagnosis Fluids 500 cc LR Specimens Proximal tibia, distal femur Anesthesia Type Spinal MAC Complications none Disposition Disposition: Recovery Room Overlapping Procedure I was present for: the critical portions of procedure. I was immediately available: during the entire case. Back up surgeon: was not required during procedure.
--- NOTE | 2019-01-13 09:23 | Operative Report ---
Post Operative Report Pre & Post Diagnosis Operation Date: 01/13/19 07:15 Pre-Op Diagnosis: Unilateral Primary Osteoarthritis, Right Knee Post-Op Diagnosis: Unilateral Primary Osteoarthritis, Right Knee I identified the patient and participated in the time-out.: Yes Procedure Operation Date: 01/13/19 07:15 Actual Procedures p Right Total Knee Arthroplasty(Right) - Watson Cormier DO Surgeon Watson Cormier DO Transport Medic Aleksandr Wolfe Estimated Blood Loss 50 Findings Consistent with Post-Op Diagnosis Fluids 500 cc KR Specimens Proximal tibia, distal femur bone fragments Drains HMV drain deep to fascia Complications none Disposition Disposition: Recovery Room Indications The patient is a 63-year-old female presents with long history of severe right knee tricompartmental DJD and failed outpatient conservative treatments including NSAIDs, bracing, injections and home walking/exercise program. The patient's symptoms have progressed to the point where it has been difficult to perform normal activities of daily living. I have indicated the patient for a right total knee arthroplasty, the risks and benefits and complications of the procedure include but are not limited to infection bleeding damage to bone, nerves, vessels, surrounding soft tissue, blood clots, loss of function, leg length discrepancy, dislocation, failure of the components, need for additional surgery and . The patient wished to proceed with surgery at this time and informed consent was obtained. Appropriate clearances were obtained. Description of Procedure COMPONENTS USED: Torsten Persona knee system: Femur size 5 narrow, Tibia size D Tibial articulating surface 14 CPS, Patella 32mm Following induction of spinal anesthesia, a tourniquet was applied to the proximal aspect of the thigh and the patient's right leg was prepped and draped in the usual sterile manner. A timeout was performed, patient identified and site jarvis confirmed. Appropriate pre-operative IV antibiotics were given. The limb was exsanguinated with an Esmarch bandage and tourniquet was inflated to 300 mmHg. A longitudinal midline incision was made over the anterior knee. Subcutaneous tissue was sharply dissected down to fascia. Electrocautery was used for hemostasis. Next a parapatellar arthrotomy was performed. Patella was everted and the knee was flexed. A Crowley retractor was used to expose the synovium above on the anterior aspect of the femur and removed down to bone. Next, the anterior fat pad was removed to aid in visualization. The medial face of the tibia was cleared of soft tissue first with a Bovie and a pierson elevator. This tissue was retracted posteriorly using a blunt Hohmann. Next, the extra-medullary tibial cutting guide was placed to the anterior aspect of the tibia. The tibia resection level was set taking 2mm from the defective tibial condyle. Resection depth was once again confirmed with kathie wing. The medial and lateral collateral ligament was protected with two Hohmann retractors. The tibia guide was removed and proximal tibial bone fragment removed utilizing straight osteotome, electrocautery and Jana. Next, the distal femur intramedullary canal was accessed utilizing the step drill. The intramedullary distal femur cutting guide was placed into the canal and pinned into place. The distal femur was cut on the 5 degree +0 setting. Next the cutting guide was removed and the femur was sized. Care was taken to ensure appropriate venue coordinator all rotation and 3 degree holes were drilled. A size 5 4-in-1 cutting block was placed on the distal end of the femur and secured into place with two short headed screws. Two bent Hohmann retractors were pl aced to protect the medial and lateral collateral ligaments. The oscillating saw was used to cut anterior, posterior, anterior chamfer and posterior chamfer. The four and one cutting block was removed and bone fragments excised. Laminar last marker was placed laterally and the ACL and PCL were removed followed by the medial meniscus and posterior medial osteophytes. Aquamantys was utilized for any posterior medial bleeders and Orthomix injected into the posterior medial capsule. A laminar last marker was then placed in the medial compartment and the lateral meniscus and posterior osteophytes were removed. Aquamantys was utilized for any posterior lateral bleeders and Orthomix injected into the posterior lateral capsule. Next, drop harper and spacer block were placed with the leg in flexion and extension to assess alignment and flexion/extension gaps. Next, the proximal tibia was assessed and two bent Hohmans were placed medial and lateral to aid in visualization. The appropriate tibia size and rotation was selected and a size D tibial plate was pinned into place with appropriate rotation. Preparation of the tibia was completed utilizing the matching tibial drill and broach. I then turned my attention back to the distal femur in a trial femoral component was impacted into place. Appropriate femoral width was assessed and selected. Next the femur PS box cut guide was placed and cut made with the reciprocal saw and the PS box provisional placed. A trial size 12PS tibia articular tray was placed and varus-valgus balance assessed in 0 degrees of extension and 30, 60 and 90 degrees of flexion. A final tibial articular surface size 14CPS was chosen. Assess was gained to the patella and caliper utilized to measure width. The patella reamer was utilized and remaining bone removed with oscillating saw. A size 32mm patella button was selected and the patella pegs drilled. Trial patella button was placed and tracking was assessed. The knee was found to be well balanced, well aligned with excellent patella tracking. The trials were removed and final components were obtained and assembled. The knee was irrigated copiously with sterile saline solution mixed with bacitracin. Access to the proximal tibia was once again obtained utilizing to the Hohmans and the proximal tibia and distal femur were dried with lap sponges. The final components were cemented into place and all excess cement was removed. A trial tibial articular surface was placed while cemented hardened. Knee stability was once again assessed and the final component inserted. A Betadine soak was performed. After 3 minutes, the hip was once more irrigated with copious sterile saline solution with bacitracin. The knee was injected with the remaining Orthomix which includes a combination of Ropivicaine 0.5% 150mg, Bupivicaine 0.5%/Epinephrine 1:200,000 30ml, Toradol 30mg, Dexamethasone 4mg, Ketamine 10mg, Clonidine 100mcg and NSS 30ml solution. The capsulotomy was closed with #1 Vicryl followed by subcutaneous closure with 2-0 Vicryl suture. Skin was closed with margaret. Sterile dry dressings were applied which included Silverlon, Webril, Hemovac drain sponge, Vincent wrap. Tourniquet was deflated at 87 minutes. The patient tolerated the procedure well and was taken to the PACU in stable condition. Due to the complex nature of the procedure, the entire surgery was performed with the operational assistance of Aleksandr Wolfe PA-C. The contract assistant, under direct supervision, was involved in the actual performance of all aspects of the surgical procedure including patient positioning, hemostasis, tissue retraction, instrument management and wound closure. I attest to the content of the Intraoperative Record and any orders documented therein. Any exceptions are noted below.
--- NOTE | 2019-01-13 09:37 | XRay Report ---
XR knee RT 1 or 2V routine CLINICAL HISTORY: Surgical Post Op DEGENERATIVE ARTHRITIS COMPARISON: 11/16/2015 DISCUSSION: There is evidence for a total right knee arthroplasty and patellar resurfacing. The femor al and tibial components appear well seated. There are overlying skin margaret and surgical drains. Th ere is air within the soft tissues consistent with recent surgery. IMPRESSION: Postsurgical changes of a total right knee arthroplasty. Electronically signed by: Frederick Diaz M.D. 01/13/2019 9:36 AM
[2019-01-13] MEDS ORDERED: LACTATED RINGER'S 500 ML IV ONE (10:04)
--- NOTE | 2019-01-13 10:42 | Anesthesiology Progress Note ---
Date of Service January 13, 2019 Anesthesia Post Procedure Vital Signs Vital Signs: Temp Pulse Pulse Resp BP Pulse Ox 01/13/19 10:25 36.9 C 70 14 99/52 L 97 01/13/19 10:15 36.9 C 68 14 95/53 L 97 01/13/19 10:05 69 14 91/50 L 97 01/13/19 09:55 71 12 93/50 L 98 01/13/19 09:45 71 12 89/51 L 98 01/13/19 09:35 77 12 90/54 L 94 01/13/19 09:25 77 14 104/50 L 96 01/13/19 09:16 36.3 C L 83 14 110/51 L 97 01/13/19 05:54 36.9 C 73 16 150/75 H 98 Pain Intensity Right Knee: Pain Intensity: 0 Left Knee: Pain Intensity: 4 Transfer of Care Handoff Completed per policy Notes Mental Status: alert / awake / arousable and participated in evaluation Patient Amnestic to Procedure: Yes Nausea / Vomiting: adequately controlled Pain: adequately controlled Airway Patency, RR, SpO2: stable & adequate BP & HR: stable & adequate Hydration State: stable & adequate Anesthetic Complications: no major complications apparent and Pt Satisfied with anesthetic care
[2019-01-13] MEDS ORDERED: bisacodyL 10 MG SUPP PR PRN (10:54)
[2019-01-13] MEDS ORDERED: MAGNESIUM HYDROXIDE SUSP 30 ML UDC PO PRN (10:54)
[2019-01-13] MEDS ORDERED: NITROGLYCERIN SL 0.4 MG/TAB TAB SL PRN (10:54)
[2019-01-13] MEDS ORDERED: METOCLOPRAMIDE HCL INJ 5 MG/ML 2 ML VIAL IV PRN (10:54)
[2019-01-13] MEDS ORDERED: NALOXONE HCL 0.4 MG/1 ML VIAL/CARP IV PRN (10:54)
[2019-01-13] MEDS: SODIUM CHLORIDE 0.9% 1000ML 1,000 ML IV SCH ×2 (12:15→20:44)
[2019-01-13] MEDS: HYDROCODONE/ACETAMOPHEN 5/325MG TAB PO PRN ×2 (12:48→19:46)
[2019-01-13] MEDS: ROPINIROLE HCL 1 MG TABLET PO SCH ×2 (13:24→20:45)
[2019-01-13] MEDS: CEFAZOLIN 1000MG 1,000 MG/7.5 ML SYR IV SCH ×2 (13:25→20:52)
--- NOTE | 2019-01-13 18:06 | Orthopedic Progress Note ---
Date of Service January 13, 2019 Assessment & Plan (1) Tricompartment degenerative joint disease of knee: s/p R TKA -ancef x 24 -DVT ppx: SCDs, TEDs, Lovenox 40mg BID, will restart coumadin 2 weeks post op -WBAT RLE -PT/OT -PO XR demonstrates a well aligned well fixed prothesis without fracture dislocation -am labs -DC planning Subjective Post Operative Progress Note Patient seen sitting up in bed, comfortable, denies complaints, pain well controlled, no acute issues. Review of Systems Review of Systems: All systems reviewed & are unremarkable except as noted in HPI & below Constitutional: as per Subjective / HPI Physical Exam Physical Exam: RLE NVSI +EHL/FHL/TA/GS SILT grossly, +2 DP pulse, compartments soft NT, dressing cdi. Constitutional: WD/WN, vitals as above Results & Data Vital Signs (Past 12 Hours) Vital Signs Temp Pulse Pulse Pulse Resp BP Pulse Ox 01/13/19 15:45 36.7 C 89 19 121/73 93 01/13/19 13:21 36.5 C 80 16 108/55 L 93 01/13/19 13:19 79 01/13/19 12:13 77 16 118/70 100 01/13/19 11:46 75 16 125/64 92 01/13/19 11:15 79 16 123/73 98 01/13/19 10:45 36.4 C L 82 14 108/64 99 01/13/19 10:25 36.9 C 70 14 99/52 L 97 01/13/19 10:15 36.9 C 68 14 95/53 L 97 01/13/19 10:05 69 14 91/50 L 97 01/13/19 09:55 71 12 93/50 L 98 01/13/19 09:45 71 12 89/51 L 98 01/13/19 09:35 77 12 90/54 L 94 01/13/19 09:25 77 14 104/50 L 96 01/13/19 09:16 36.3 C L 83 14 110/51 L 97
[2019-01-13] MEDS: AMITRIPTYLINE HCL 25 MG TAB PO SCH (20:46)
[2019-01-13] MEDS: METOPROLOL TARTRATE 25 MG TAB PO SCH (20:46)
[2019-01-13] MEDS: ROSUVASTATIN CALCIUM 10 MG TAB PO SCH (20:47)
[2019-01-13] MEDS: SENNA 8.6 MG TAB PO SCH (20:47)
[2019-01-13] MEDS: PANTOprazole 40 MG TAB PO SCH (20:48)
[2019-01-13] MEDS: DOCUSATE SODIUM 100 MG CAP PO SCH (20:50)
[2019-01-14] MEDS: HYDROCODONE/ACETAMOPHEN 5/325MG TAB PO PRN ×5 (01:28→23:22)
[2019-01-14] MEDS: LEVOTHYROXINE SODIUM 100 MCG TABLET PO SCH (05:27)
[2019-01-14 06:52] LABS: Hematocrit (blood only) 27.4 % (37-47); Hemoglobin 8.7 g/dL (12.0-16.0); Mean Corpuscular Hemoglobin 28.2 pg (25-34); Mean Corpuscular Hgb Conc 31.8 g/dL (32-36); Mean Corpuscular Volume 88.7 fL (80-100); Mean Platelet Volume 10.6 fL (7.4-10.4); Platelet Count 122 K/uL (130-400); RDW Coefficient of Variation 14.2 % (11.5-14.5); RDW Standard Deviation 46.5 fL (36.4-46.3); Red Blood Count 3.09 M/uL (4.2-5.4); White Blood Count 7.88 K/uL (4.8-10.8)
[2019-01-14 07:24] LABS: BUN Creatinine Ratio 21.1 (10-20); Calcium 8.9 mg/dl (8.5-10.1); Creatinine Clr Calc Pharmacy 37.8 ml/min; Est GFR (African American) 49.4; Est GFR (Non-African American) 42.6; Potassium 3.9 mmol/L (3.5-5.1)
[2019-01-14] MEDS: FOLIC ACID 1 MG TAB PO SCH (08:02)
[2019-01-14] MEDS: FERROUS SULFATE 325 MG TAB PO SCH (08:02)
[2019-01-14] MEDS: AMITRIPTYLINE HCL 25 MG TAB PO SCH ×2 (08:02→21:14)
[2019-01-14] MEDS: POTASSIUM CHLORIDE 10 MEQ TABCR PO SCH (08:02)
[2019-01-14] MEDS: METOPROLOL TARTRATE 25 MG TAB PO SCH ×2 (08:03→21:14)
[2019-01-14] MEDS: FUROSEMIDE 40 MG TAB PO SCH (08:03)
[2019-01-14] MEDS: THIAMINE HCL 50 MG TABLET PO SCH (08:04)
[2019-01-14] MEDS: ROPINIROLE HCL 1 MG TABLET PO SCH ×3 (08:04→21:13)
[2019-01-14] MEDS: MULTIVITAMIN TAB PO SCH (08:04)
[2019-01-14] MEDS: ASCORBIC ACID 500 MG TAB PO SCH (08:04)
[2019-01-14] MEDS: DOCUSATE SODIUM 100 MG CAP PO SCH ×2 (08:05→21:15)
--- NOTE | 2019-01-14 08:19 | Anesthesiology Progress Note ---
Date of Service January 14, 2019 Anesthesia Post Procedure Vital Signs Vital Signs: Temp Pulse Pulse Pulse Resp BP Pulse Ox 01/14/19 07:29 36.8 C 60 18 109/62 96 01/14/19 03:22 36.9 C 80 18 102/53 L 96 01/13/19 23:39 36.7 C 74 16 99/55 L 95 01/13/19 20:29 36.7 C 90 17 117/63 97 01/13/19 15:45 36.7 C 89 19 121/73 93 01/13/19 13:21 36.5 C 80 16 108/55 L 93 01/13/19 13:19 79 01/13/19 12:13 77 16 118/70 100 01/13/19 11:46 75 16 125/64 92 01/13/19 11:15 79 16 123/73 98 01/13/19 10:45 36.4 C L 82 14 108/64 99 01/13/19 10:25 36.9 C 70 14 99/52 L 97 01/13/19 10:15 36.9 C 68 14 95/53 L 97 01/13/19 10:05 69 14 91/50 L 97 01/13/19 09:55 71 12 93/50 L 98 01/13/19 09:45 71 12 89/51 L 98 01/13/19 09:35 77 12 90/54 L 94 01/13/19 09:25 77 14 104/50 L 96 01/13/19 09:16 36.3 C L 83 14 110/51 L 97 Pain Intensity Right Knee: Pain Intensity: 8 Left Knee: Pain Intensity: 4 Notes Mental Status: alert / awake / arousable and participated in evaluation Patient Amnestic to Procedure: Yes Nausea / Vomiting: adequately controlled Pain: adequately controlled Airway Patency, RR, SpO2: stable & adequate BP & HR: stable & adequate Hydration State: stable & adequate Neuraxial Anesthesia: was administered and sensory block resolved Anesthetic Complications: no major complications apparent and Pt Satisfied with anesthetic care
--- NOTE | 2019-01-14 08:55 | Cardiology Consultation ---
Date of Consultation January 14, 2019 Assessment & Plan (1) Tricompartment degenerative joint disease of knee: (2) A-fib: (3) Myocardial infarction: (4) Mitral valve replaced: (5) Mechanical heart valve present: (6) History of CVA (cerebrovascular accident): (7) Diabetes type 2, controlled: (8) S/P TKR (total knee replacement): The patient is currently clinically stable. She is extremely high risk for both bleeding and embolic events. 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 Since her mechanical valve was placed, she has had an embolic myocardial infarction as well as an embolic stroke. She has also had multiple bleeding episodes following procedures. In the past, she has been on both warfarin as well as antiplatelet agents including aspirin and Plavix. She had bleeding episodes and the antiplatelet agents have been held. She is high risk for bleeding with Lovenox due to her renal insufficiency and I am going to discontinue this medication. I will start IV heparin without a bolus which the anticoagulation is measurable and easier to control. I will also start her on her warfarin today. She will have an INR daily. She cannot be discharged from the hospital until her INR is therapeutic and she is off heparin. History of Present Illness Attending Physician: Watson Cormier, History of Present Illness This is a 63-year-old female who usually follows with Dr. Molina. She has a history of a mechanical mitral valve placed in 1993. She has chronic atrial fibrillation and has had both an embolic myocardial infarction and TIA. In her medical history, she has had bleeding episodes following procedures. She underwent a total knee replacement yesterday. She is resting comfortably and has no current complaints. Past medical history: 1. Rheumatic valvular heart disease, status post mitral valve replacement with a mechanical [employer] prosthesis in 1993. 2. Chronic atrial fibrillation with borderline tachy Chrsi syndrome 3. Past embolic myocardial infarction and TIA, on chronic anticoagulation, at one point she was on antiplatelet therapy but due to bleeding problems both aspirin and more recently Plavix has been discontinued. 4. Type 2 diabetes mellitus. 5. Hyperlipidemia. 6. Chronic renal insufficiency. Allergies Allergy/AdvReac Type Severity Reaction Status Date / Time prochlorperazine Allergy Severe NUCHAL Verified 01/13/19 05:45 DYSTONIA promethazine Allergy Severe NUCHAL Verified 01/13/19 05:45 DYSTONIA PERRY Inhibitors Allergy Unknown COUGH Verified 01/13/19 05:45 hydroxyzine Allergy Unknown DYSTONIA Verified 01/13/19 05:45 oxycodone Allergy Unknown Numbness Verified 01/13/19 05:45 lisinopril AdvReac Unknown Cough Verified 01/13/19 05:45 metformin AdvReac Unknown DIARRHEA Verified 01/13/19 05:45 parsley AdvReac Unknown AGITATION Verified 01/13/19 05:45 tetracycline AdvReac Unknown DYSPEPSIA Verified 01/13/19 05:45 NAUSEA MEDICINES Allergy Unknown SEE NOTE Uncoded 01/13/19 05:45 BELOW Home Medications Home Medications Medication Instructions Recorded Confirmed Type cholecalciferol (vitamin D3) 1,000 unit PO QAM 12/05/17 01/13/19 History [Vitamin D3] nitroglycerin [Nitrostat] 0.4 mg SUBLINGUAL DIRECTED PRN 12/05/17 01/13/19 History omeprazole 20 mg PO PM 12/05/17 01/13/19 History rosuvastatin 10 mg PO QPM 12/05/17 01/13/19 History acetaminophen [Tylenol Extra 500 mg PO Q6H PRN 05/18/18 01/13/19 History Strength] furosemide 40 mg PO QAM 05/18/18 01/13/19 History levothyroxine 100 mcg PO QAM 05/18/18 12/10/18 History metoclopramide HCl [Reglan] 10 mg PO UD PRN 05/18/18 01/13/19 History folic acid 1 mg PO QAM #30 tab 05/21/18 01/13/19 Rx thiamine HCl (vitamin B1) [Vitamin 50 mg PO QAM #30 tab 05/21/18 01/13/19 Rx B-1] sennosides [Senokot] 17.2 mg PO HS PRN #28 tab 09/24/18 01/13/19 Rx amitriptyline 50 mg PO BID 10/08/18 12/10/18 History ascorbic acid (vitamin C) 500 mg PO DAILY #30 tab 10/08/18 01/13/19 Rx ferrous sulfate 325 mg PO DAILY #30 tab 10/08/18 01/13/19 Rx metoprolol tartrate 25 mg PO BID #60 tab 10/08/18 12/10/18 Rx ropinirole 2 mg PO TID 10/08/18 01/13/19 History potassium chloride 10 meq PO QAM 10/22/18 01/13/19 History warfarin 5 mg PO 3XWK 10/22/18 01/13/19 History warfarin 7.5 mg PO 4XWK 10/22/18 01/13/19 History tramadol 50 mg PO TID PRN 12/10/18 01/13/19 History enoxaparin [Lovenox] 40 mg SUBCUT Q12H 01/13/19 01/13/19 History Patient History Medical History A-fib Anemia chronic; baseline hgb 9-10 range per chart review Anxiety CKD (chronic kidney disease), stage III Diabetes diet controlled GERD (gastroesophageal reflux disease) controlled History of blood transfusion autologous s/p MVR (1993), 09/2018 (post-op) HTN (hypertension) Hx of myocardial infarction 2000, medical management Hyperlipidemia Hypothyroidism Migraines 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 migraine vs. stress related)-- plavix since discontinued Surgical History H/O radioactive iodine thyroid ablation H/O: hysterectomy History of cardiac cath 2000= NO STENTS History of colonoscopy History of tonsillectomy and adenoidectomy History of total left knee replacement Hx of appendectomy Hx of cholecystectomy Hx of mitral valve replacement 1993 (rheumatic valvular disease) Hx of tubal ligation Family History Uncle , of [place] in his 40s Coronary heart disease Social History Preferred Language: [place] Communication Ability: Effective Director Of Perioperative Services Required: No Beliefs That Will Affect Care: None marital status: Single Current Living Situation: Other Current Living Situation Comment: MOTHER current occupational status: disabled Other Information That Helps Us Care for You: No Feels Safe at Home: Yes Smoking Status: Never smoker Do You Dip or Chew Tobacco: No ; Second Hand Exposure: No ; Hx Alcohol Use: Yes Alcohol type: wine Hx Substance Use: No Review of Systems Review of Systems: All systems reviewed & are unremarkable except as noted in HPI & below No additional information. Physical Exam Physical Exam: General: no acute distress and stated age Head: normocephalic, no masses, lesions, tenderness or abnormalities Eyes: conjunctiva are pink and non-injected, sclera clear Neck: supple, no adenopathy, no bruits, normal jugular venous pulse, no hepatojugular reflux Chest: normal shape and normal respiratory effort Lungs: clear to auscultation and percussion Cardiac Exam: - irregular rate & rhythm, no murmurs gallops or rubs -mechanical S1, normal S2 Pulses: 2(+) throughout Abdomen: abdomen soft, non-tender, no abnormal masses and no hepatosplenomegaly Musculoskeletal: no gait disturbance, no joint inflammation, no deforming arthritis Extremities: Status post total knee replacement Neuro: grossly normal exam Results & Data Vital Signs (Past 12 Hours) Vital Signs Temp Pulse Resp BP Pulse Ox 01/14/19 07:29 36.8 C 60 18 109/62 96 01/14/19 03:22 36.9 C 80 18 102/53 L 96 01/13/19 23:39 36.7 C 74 16 99/55 L 95 Laboratory Results Laboratory Results - last 24 hr 01/13/19 01/13/19 01/13/19 09:36 12:03 17:01 WBC RBC Hgb Hct MCV MCH MCHC RDW Std Deviation RDW Coeff of Courtney Plt Count MPV Sodium Potassium Chloride Carbon Dioxide Anion Gap BUN Creatinine Est Cr Clr Drug Dosing Est GFR ( Amer) Est GFR (Non-Af Amer) BUN/Creatinine Ratio Glucose POC Glucose 100 H 97 209 H Calcium 01/13/19 01/14/19 01/14/19 21:03 06:19 06:19 WBC 7.88 RBC 3.09 L Hgb 8.7 L Hct 27.4 L MCV 88.7 MCH 28.2 MCHC 31.8 L RDW Std Deviation 46.5 H RDW Coeff of Courtney 14.2 Plt Count 122 L MPV 10.6 H Sodium 138 Potassium 3.9 Chloride 106 Carbon Dioxide 26 Anion Gap 5.0 BUN 28 H Creatinine 1.31 H Est Cr Clr Drug Dosing 37.8 Est GFR ( Amer) 49.4 Est GFR (Non-Af Amer) 42.6 BUN/Creatinine Ratio 21.1 H Glucose 148 H POC Glucose 231 H Calcium 8.9 01/14/19 07:39 WBC RBC Hgb Hct MCV MCH MCHC RDW Std Deviation RDW Coeff of Courtney Plt Count MPV Sodium Potassium Chloride Carbon Dioxide Anion Gap BUN Creatinine Est Cr Clr Drug Dosing Est GFR ( Amer) Est GFR (Non-Af Amer) BUN/Creatinine Ratio Glucose POC Glucose 116 H Calcium Medications Administered Current Inpatient Medications Hydrocodone Bitart/Acetaminophen ([place] 5/325) 1 - 2 tab PO Q4H PRN PRN Reason: Pain Stop: 01/27/19 10:53 Last Admin: 01/14/19 05:27 Dose: 2 tab Documented by: Amitriptyline HCl (Elavil) 50 mg PO BID [facility] Stop: 02/12/19 20:59 Last Admin: 01/14/19 08:02 Dose: 50 mg Documented by: Ascorbic Acid (Vitamin C) 500 mg PO DAILY [facility] Stop: 02/13/19 08:59 Last Admin: 01/14/19 08:04 Dose: 500 mg Documented by: Bisacodyl (Dulcolax) 10 mg [place] DAILY PRN PRN Reason: Constipation Stop: 02/12/19 10:53 Diphenhydramine HCl (Benadryl Capsule) 25 mg PO Q8H PRN PRN Reason: Itching Stop: 02/12/19 10:53 Docusate Sodium (Colace) 100 mg PO BID [facility] Stop: 02/12/19 20:59 Last Admin: 01/14/19 08:05 Dose: 100 mg Documented by: Ferrous Sulfate (Feosol) 325 mg PO DAILY [facility] Stop: 02/13/19 08:59 Last Admin: 01/14/19 08:02 Dose: 325 mg Documented by: Folic Acid (Folvite) 1 mg PO QAM [facility] Stop: 02/13/19 08:59 Last Admin: 01/14/19 08:02 Dose: 1 mg Documented by: Furosemide (Lasix) 40 mg PO QAM [facility] Stop: 02/13/19 08:59 Last Admin: 01/14/19 08:03 Dose: 40 mg Documented by: Heparin Sodium/Dextrose () 1 ea IV Q15M [facility]; Protocol Stop: 01/14/19 10:01 Hydromorphone HCl (Dilaudid) 0.5 mg IV Q4H PRN PRN Reason: Pain Stop: 01/27/19 10:53 Heparin Sodium/Dextrose (Heparin Sodium/Dextrose) 25,000 units in 500 mls @ 0.02 mls/hr IV .Q24H [facility]; Protocol Stop: 02/13/19 12:59 Levothyroxine Sodium (Synthroid) 100 mcg PO DAILYBB [facility] Stop: 02/13/19 06:29 Last Admin: 01/14/19 05:27 Dose: 100 mcg Documented by: Magnesium Hydroxide (Milk Of Magnesia) 30 ml PO Q6H PRN PRN Reason: Constipation Stop: 02/12/19 10:53 Metoclopramide HCl (Reglan) 10 mg IV Q6H PRN PRN Reason: Nausea And Vomiting Stop: 02/12/19 10:53 Metoprolol Tartrate (Lopressor) 25 mg PO BID [facility] Stop: 02/12/19 20:59 Last Admin: 01/14/19 08:03 Dose: 25 mg Documented by: [facility]ivit[facility] ([facility]itamin Tab) [facility] [place] Stop: 02/13/19 08:59 Last Admin: 01/14/19 08:04 Dose: Not Given Documented by: Naloxone HCl (Narcan) 0.1 mg IV Q5M PRN PRN Reason: Oversedation/Resp Depression Stop: 02/12/19 10:53 Nitroglycerin (Nitrostat) 0.4 mg SL UD PRN PRN Reason: Chest Pain Stop: 02/12/19 10:53 Pantoprazole Sodium (Protonix) 40 mg PO PM [facility] Stop: 02/12/19 20:59 Last Admin: 01/13/19 20:48 Dose: 40 mg Documented by: Potassium Chloride (Klor-Con M10) 10 meq PO QAM [facility] Stop: 02/13/19 08:59 Last Admin: 01/14/19 08:02 Dose: 10 meq Documented by: Ropinirole HCl (Requip) 2 mg PO TID [facility] Stop: 02/12/19 13:59 Last Admin: 01/14/19 08:04 Dose: 2 mg Documented by: Rosuvastatin Calcium (Crestor) 10 mg PO QPM [facility] Stop: 02/12/19 20:59 Last Admin: 01/13/19 20:47 Dose: 10 mg Documented by: Sennosides (Senokot) 17.2 mg PO HS [facility] Stop: 02/12/19 20:59 Last Admin: 01/13/19 20:47 Dose: Not Given Documented by: Thiamine HCl (Vitamin B-1) 50 mg PO QAM [facility] Stop: 02/13/19 08:59 Last Admin: 01/14/19 08:04 Dose: 50 mg Documented by: Warfarin Sodium (Coumadin) 10 mg PO DAILY@1600 [facility] Stop: 02/13/19 15:59 (1) Diabetes type 2, controlled Diabetes mellitus group home insulin use: without termite control servicer use Diabetes mellitus complication status: without complication Qualified Code(s): E11.9 - Type 2 diabetes mellitus without complications (2) S/P TKR (total knee replacement) Laterality: left Qualified Code(s): Z96.652 - Presence of left artificial knee joint
[2019-01-14] MEDS ORDERED: ENOXAPARIN INJ 40 MG/0.4 ML SYR SQ SCH (09:00)
[2019-01-14] MEDS ORDERED: Heparin IV Standard *NO* Bolus IV SCH (09:15)
[2019-01-14] MEDS: HYDROmorphone INJ 0.5 MG/0.5 ML SYR IV PRN ×3 (10:47→19:56)
[2019-01-14 12:50] LABS: Basophils # (auto) 0.01 K/uL (0-0.2); Basophils % (auto) 0.1 %; Eosinophils # (auto) 0.09 K/uL (0-0.5); Eosinophils % (auto) 1.1 %; Hematocrit (blood only) 28.5 % (37-47); Hemoglobin 9.1 g/dL (12.0-16.0); Immature Granulocytes # (auto) 0.02 K/uL (0.00-0.02); Immature Granulocytes % (auto) 0.3 %; Lymphocytes # (auto) 0.67 K/uL (1.2-3.4); Lymphocytes % (auto) 8.4 %; Mean Corpuscular Hgb Conc 31.9 g/dL (32-36); Mean Corpuscular Volume 87.7 fL (80-100); Mean Platelet Volume 10.4 fL (7.4-10.4); Monocytes # (auto) 0.72 K/uL (0.11-0.59); Monocytes % (auto) 9.1 %; Neutrophils # (auto) 6.42 K/uL (1.4-6.5); Platelet Count 128 K/uL (130-400); RDW Coefficient of Variation 14.5 % (11.5-14.5); RDW Standard Deviation 46.7 fL (36.4-46.3); Red Blood Count 3.25 M/uL (4.2-5.4); White Blood Count 7.93 K/uL (4.8-10.8)
[2019-01-14] MEDS: HEPARIN SODIUM/DEXTROSE 25,000 UNITS/500 ML BAG IV SCH ×2 (12:52→13:42)
[2019-01-14 13:01] LABS: INR 1.1 (0.9-1.1); Prothrombin Time 11.2 Seconds (9.0-12.0)
--- NOTE | 2019-01-14 13:11 | Orthopedic Progress Note ---
Date of Service January 14, 2019 Assessment & Plan (1) Tricompartment degenerative joint disease of knee: s/p R TKA POD#1 -ancef x 24 -DVT ppx: SCDs, TEDs, Lovenox 40mg BID -Cardio recs appreciated, with adjust DVT ppx, Heparin bridge to coumadin, DC once theraputic. -WBAT RLE -PT/OT -PO XR demonstrates a well aligned well fixed prothesis without fracture dislocation -am labs: hgb 8.7 -Monitor HMV drain output -DC planning: home with HH Subjective Post Operative Progress Note Patient seen sitting up in bed, comfortable, denies complaints, pain well controlled, no acute issues. Denies N/V/F/C/SOP/CP. Review of Systems Review of Systems: All systems reviewed & are unremarkable except as noted in HPI & below Constitutional: as per Subjective / HPI Physical Exam Physical Exam: RLE NVSI +EHL/FHL/TA/GS SILT grossly, +2 DP pulse, compartments soft NT, dressing cdi. HMV drain intact Constitutional: WD/WN, vitals as above Results & Data Vital Signs (Past 12 Hours) Vital Signs Temp Pulse Resp BP Pulse Ox 01/14/19 11:23 36.9 C 71 18 111/64 96 01/14/19 07:29 36.8 C 60 18 109/62 96 01/14/19 03:22 36.9 C 80 18 102/53 L 96 Diagnostic Findings 01/14/19 01/14/19 01/14/19 Range/Units 12:29 12:29 11:33 WBC 7.93 (4.8-10.8) K/uL RBC 3.25 L (4.2-5.4) M/uL Hgb 9.1 L (12.0-16.0) g/dL Hct 28.5 L (37-47) % MCV 87.7 (80-100) fL MCH 28.0 (25-34) pg MCHC 31.9 L (32-36) g/dL RDW Std Deviation 46.7 H (36.4-46.3) fL RDW Coeff of Courtney 14.5 (11.5-14.5) % Plt Count 128 L (130-400) K/uL MPV 10.4 (7.4-10.4) fL Immature Gran % (Auto) 0.3 % Neut % (Auto) 81.0 % Lymph % (Auto) 8.4 % Antelope % (Auto) 9.1 % Eos % (Auto) 1.1 % Baso % (Auto) 0.1 % Immature Gran # (Auto) 0.02 (0.00-0.02) K/uL Neut # (Auto) 6.42 (1.4-6.5) K/uL Lymph # (Auto) 0.67 L (1.2-3.4) K/uL Antelope # (Auto) 0.72 H (0.11-0.59) K/uL Eos # (Auto) 0.09 (0-0.5) K/uL Baso # (Auto) 0.01 (0-0.2) K/uL PT 11.2 (9.0-12.0) Seconds INR 1.1 (0.9-1.1) Sodium (136-145) mmol/L Potassium (3.5-5.1) mmol/L Chloride (98-107) mmol/L Carbon Dioxide (21-32) mmol/L Anion Gap (3-11) BUN (7-18) mg/dl Creatinine (0.6-1.2) mg/dl Est Cr Clr Drug Dosing ml/min Est GFR ( Amer) Est GFR (Non-Af Amer) BUN/Creatinine Ratio (10-20) Glucose (70-99) mg/dl POC Glucose 148 H (70-99) Calcium (8.5-10.1) mg/dl 01/14/19 01/14/19 01/14/19 Range/Units 07:39 06:19 06:19 WBC 7.88 (4.8-10.8) K/uL RBC 3.09 L (4.2-5.4) M/uL Hgb 8.7 L (12.0-16.0) g/dL Hct 27.4 L (37-47) % MCV 88.7 (80-100) fL MCH 28.2 (25-34) pg MCHC 31.8 L (32-36) g/dL RDW Std Deviation 46.5 H (36.4-46.3) fL RDW Coeff of Courtney 14.2 (11.5-14.5) % Plt Count 122 L (130-400) K/uL MPV 10.6 H (7.4-10.4) fL Immature Gran % (Auto) % Neut % (Auto) % Lymph % (Auto) % Antelope % (Auto) % Eos % (Auto) % Baso % (Auto) % Immature Gran # (Auto) (0.00-0.02) K/uL Neut # (Auto) (1.4-6.5) K/uL Lymph # (Auto) (1.2-3.4) K/uL Antelope # (Auto) (0.11-0.59) K/uL Eos # (Auto) (0-0.5) K/uL Baso # (Auto) (0-0.2) K/uL PT (9.0-12.0) Seconds INR (0.9-1.1) Sodium 138 (136-145) mmol/L Potassium 3.9 (3.5-5.1) mmol/L Chloride 106 (98-107) mmol/L Carbon Dioxide 26 (21-32) mmol/L Anion Gap 5.0 (3-11) BUN 28 H (7-18) mg/dl Creatinine 1.31 H (0.6-1.2) mg/dl Est Cr Clr Drug Dosing 37.8 ml/min Est GFR ( Amer) 49.4 Est GFR (Non-Af Amer) 42.6 BUN/Creatinine Ratio 21.1 H (10-20) Glucose 148 H (70-99) mg/dl POC Glucose 116 H (70-99) Calcium 8.9 (8.5-10.1) mg/dl 01/13/19 01/13/19 Range/Units 21:03 17:01 WBC (4.8-10.8) K/uL RBC (4.2-5.4) M/uL Hgb (12.0-16.0) g/dL Hct (37-47) % MCV (80-100) fL MCH (25-34) pg MCHC (32-36) g/dL RDW Std Deviation (36.4-46.3) fL RDW Coeff of Courtney (11.5-14.5) % Plt Count (130-400) K/uL MPV (7.4-10.4) fL Immature Gran % (Auto) % Neut % (Auto) % Lymph % (Auto) % Antelope % (Auto) % Eos % (Auto) % Baso % (Auto) % Immature Gran # (Auto) (0.00-0.02) K/uL Neut # (Auto) (1.4-6.5) K/uL Lymph # (Auto) (1.2-3.4) K/uL Antelope # (Auto) (0.11-0.59) K/uL Eos # (Auto) (0-0.5) K/uL Baso # (Auto) (0-0.2) K/uL PT (9.0-12.0) Seconds INR (0.9-1.1) Sodium (136-145) mmol/L Potassium (3.5-5.1) mmol/L Chloride (98-107) mmol/L Carbon Dioxide (21-32) mmol/L Anion Gap (3-11) BUN (7-18) mg/dl Creatinine (0.6-1.2) mg/dl Est Cr Clr Drug Dosing ml/min Est GFR ( Amer) Est GFR (Non-Af Amer) BUN/Creatinine Ratio (10-20) Glucose (70-99) mg/dl POC Glucose 231 H 209 H (70-99) Calcium (8.5-10.1) mg/dl
[2019-01-14 13:39] LABS: Partial Thromboplastin Ratio 1.2; Partial Thromboplastin Time 32.6 Seconds (21.0-31.0)
[2019-01-14] MEDS: WARFARIN SOD 10 MG TAB PO SCH (15:36)
[2019-01-14 19:38] LABS: Partial Thromboplastin Ratio 2.1
[2019-01-14 19:46] LABS: Partial Thromboplastin Time 56.9 Seconds (21.0-31.0)
[2019-01-14] MEDS ORDERED: diazePAM 2 MG TABLET PO PRN (20:15)
[2019-01-14] MEDS: SENNA 8.6 MG TAB PO SCH (21:12)
[2019-01-14] MEDS: ROSUVASTATIN CALCIUM 10 MG TAB PO SCH (21:12)
[2019-01-14] MEDS: PANTOprazole 40 MG TAB PO SCH (21:13)
--- NOTE | 2019-01-14 21:45 | CT Scan Report ---
CT knee RT wo con CT DOSE: 199.83 mGy.cm HISTORY: Pain worsening pain, hx hematoma TECHNIQUE: Multiaxial CT images of the were performed and reformatted in the sagittal and coronal claritza ne without the use of contrast. A dose lowering technique was utilized adhering to the principles of ALARA. COMPARISON: None. FINDINGS: The patient is post total knee replacement. Expected soft tissue postoperative changes pres ent. Expected pretibial soft tissue edematous change. Joint effusion is present within the suprapatel lar bursa measuring 4 x 2 cm. Scattered air throughout the soft tissues consistent with the immediate postoperative condition. Focal findings appear to be unremarkable postoperative basis. IMPRESSION: 1. Expected soft tissue change post total joint arthroplasty. 2. Expected joint effusion with perhaps mild to moderate suprapatellar bursa distention. 3. Otherwise negative study with postoperative basis The above report was generated using voice recognition software. It may contain grammatical, syntax or spelling errors. Electronically signed by: Thierry Duque M.D. 01/14/2019 9:44 PM
[2019-01-14] MEDS ORDERED: CARBOHYDRATES FOR HYPOGLYCEMIA PO PRN (22:42)
[2019-01-14] MEDS ORDERED: GLUCAGON FOR INJ 1 MG VIAL SQ PRN (22:42)
[2019-01-14] MEDS ORDERED: GLUCOSE 10 TABS/TUBE PO PRN (22:42)
[2019-01-14] MEDS ORDERED: GLUCOSE 40% GEL 15 GM TUBE PO PRN (22:42)
[2019-01-14] MEDS ORDERED: DEXTROSE 50% 50 ML SYRINGE IV PRN (22:42)
[2019-01-14] MEDS ORDERED: SODIUM CHLORIDE 0.9% 500 ML IV ONE (22:46)
--- NOTE | 2019-01-14 22:50 | Hospitalist Consultation ---
Date of Consultation January 14, 2019 Assessment & Plan (1) Knee pain: Final Assessment and Recommendations as follows : Worsening right knee pain hx surgery 01/[address] SSS sp PPM on Coumadin, A. fib on the monitor, currently rate controlled, ongoin g IV heparin-Coumadin bridge therapy hx history of mechanical MVR, anticoagulation as above hypertension stable hyperlipidemia, statin Rx history embolic CVA as per records DM2 diet-controlled, BSGs currently elevated postop well-controlled as of recent outpatient hemoglobin A1c of 23 November 2018 CRI, creatinine at baseline chronic anemia, hemoglobin at baseline Patient informed of LE CT result, reassurance given Analgesia Management of cardiac issues as per Cardiology Basal insulin, ISS BG goal 140-180 DVT prophylaxis. Heparin-Coumadin bridge tx Thank you very much for this consultation. Dr. Mcguire will follow patient's progress. History of Present Illness Reason for Consultation: Medical management Requesting Physician: Dr. Cormier Attending Physician: Watson Cormier DO History of Present Illness PCP : Dr. Blanco History obtained from patient and records. Medical history significant for SSS sp PPM on Coumadin, rheumatic heart disease, history of mechanical MVR, hypertension, hyperlipidemia, history embolic CVA as per records, DM2 diet-controlled, CRI (baseline creatinine 1.3-1.7 as per records), chronic anemia (baseline hemoglobin of 9). Recent confinement September 2018 for osteoarthritis left knee complicated by postop left knee hemarthrosis and postop left leg hematoma. Patient underwent elective right total knee replacement for arthritis yesterday. Postprocedure, IV heparin-Coumadin bridge Rx initiated by Cardiology. This afternoon, patient noted worsening right knee discomfort. Around 9 PM, pain became so intolerable 10/10 despite pain regimen. Pain similar to September 2018 bleeding episode as per patient. Patient demanded to be evaluated by physician. Hospitalist service consulted to evaluate patient. 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 Allergies Allergy/AdvReac Type Severity Reaction Status Date / Time prochlorperazine Allergy Severe NUCHAL Verified 01/13/19 05:45 DYSTONIA promethazine Allergy Severe NUCHAL Verified 01/13/19 05:45 DYSTONIA PERRY Inhibitors Allergy Unknown COUGH Verified 01/13/19 05:45 hydroxyzine Allergy Unknown DYSTONIA Verified 01/13/19 05:45 oxycodone Allergy Unknown Numbness Verified 01/13/19 05:45 lisinopril AdvReac Unknown Cough Verified 01/13/19 05:45 metformin AdvReac Unknown DIARRHEA Verified 01/13/19 05:45 parsley AdvReac Unknown AGITATION Verified 01/13/19 05:45 tetracycline AdvReac Unknown DYSPEPSIA Verified 01/13/19 05:45 NAUSEA MEDICINES Allergy Unknown SEE NOTE Uncoded 01/13/19 05:45 BELOW Home Medications Home Medications Medication Instructions Recorded Confirmed Type cholecalciferol (vitamin D3) 1,000 unit PO QAM 12/05/17 01/13/19 History [Vitamin D3] nitroglycerin [Nitrostat] 0.4 mg SUBLINGUAL DIRECTED PRN 12/05/17 01/13/19 History omeprazole 20 mg PO PM 12/05/17 01/13/19 History rosuvastatin 10 mg PO QPM 12/05/17 01/13/19 History acetaminophen [Tylenol Extra 500 mg PO Q6H PRN 05/18/18 01/13/19 History Strength] furosemide 40 mg PO QAM 05/18/18 01/13/19 History levothyroxine 100 mcg PO QAM 05/18/18 12/10/18 History metoclopramide HCl [Reglan] 10 mg PO UD PRN 05/18/18 01/13/19 History folic acid 1 mg PO QAM #30 tab 05/21/18 01/13/19 Rx thiamine HCl (vitamin B1) [Vitamin 50 mg PO QAM #30 tab 05/21/18 01/13/19 Rx B-1] sennosides [Senokot] 17.2 mg PO HS PRN #28 tab 09/24/18 01/13/19 Rx amitriptyline 50 mg PO BID 10/08/18 12/10/18 History ascorbic acid (vitamin C) 500 mg PO DAILY #30 tab 10/08/18 01/13/19 Rx ferrous sulfate 325 mg PO DAILY #30 tab 10/08/18 01/13/19 Rx metoprolol tartrate 25 mg PO BID #60 tab 10/08/18 12/10/18 Rx ropinirole 2 mg PO TID 10/08/18 01/13/19 History potassium chloride 10 meq PO QAM 10/22/18 01/13/19 History warfarin 5 mg PO 3XWK 10/22/18 01/13/19 History warfarin 7.5 mg PO 4XWK 10/22/18 01/13/19 History tramadol 50 mg PO TID PRN 12/10/18 01/13/19 History enoxaparin [Lovenox] 40 mg SUBCUT Q12H 01/13/19 01/13/19 History Patient History Medical History A-fib Anemia chronic; baseline hgb 9-10 range per chart review Anxiety CKD (chronic kidney disease), stage III Diabetes diet controlled GERD (gastroesophageal reflux disease) controlled History of blood transfusion autologous s/p MVR (1993), 09/2018 (post-op) HTN (hypertension) Hx of myocardial infarction 2000, medical management Hyperlipidemia Hypothyroidism Migraines 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 migraine vs. stress related)-- plavix since discontinued Surgical History H/O radioactive iodine thyroid ablation H/O: hysterectomy History of cardiac cath 2000= NO STENTS History of colonoscopy History of tonsillectomy and adenoidectomy History of total left knee replacement Hx of appendectomy Hx of cholecystectomy Hx of mitral valve replacement 1993 (rheumatic valvular disease) Hx of tubal ligation Family History Uncle , of [place] in his 40s Coronary heart disease Social History Preferred Language: Lao Communication Ability: Effective Roller Leveler Required: No Beliefs That Will Affect Care: None marital status: Single Current Living Situation: Other Current Living Situation Comment: MOTHER current occupational status: disabled Other Information That Helps Us Care for You: No Feels Safe at Home: Yes Smoking Status: Never smoker Do You Dip or Chew Tobacco: No ; Second Hand Exposure: No ; Hx Alcohol Use: Yes Alcohol type: wine Hx Substance Use: No Review of Systems Review of Systems: As per HPI, all 10 systems reviewed, all other ROS negative Physical Exam Physical Exam: GENERAL: Slightly anxious, no respiratory distress SKIN: Pallor , warm HEENT: Bespectacled, pale palpebral conjunctivae, no ptosis, dry buccal mucosa NECK : Supple, no tenderness CHEST : Decreased breath sounds, no tenderness HEART : Irregular, mechanical murmur ABDOMEN: Some distention, nontender EXTREMITIES : Dressing RLE, minimal RLE swelling w/ some tenderness, no other conspicuous deformities noted NEUROLOGIC : Coherent, no facial asymmetry, no other gross focality Results & Data Vital Signs (Past 12 Hours) Vital Signs Temp Pulse Pulse Resp BP BP Pulse Ox 01/14/19 19:31 37.0 C 91 H 19 122/61 98 01/14/19 15:27 92 H 01/14/19 15:07 37.1 C 93 H 14 107/61 100 01/14/19 11:23 36.9 C 71 18 111/64 96 Laboratory Results Laboratory Results WBC 7.93 K/uL (4.8-10.8) 01/14/19 12:29 RBC 3.25 M/uL (4.2-5.4) L 01/14/19 12:29 Hgb 9.1 g/dL (12.0-16.0) L 01/14/19 12:29 Hct 28.5 % (37-47) L 01/14/19 12:29 MCV 87.7 fL (80-100) 01/14/19 12:29 MCH 28.0 pg (25-34) 01/14/19 12:29 MCHC 31.9 g/dL (32-36) L 01/14/19 12:29 RDW Std Deviation 46.7 fL (36.4-46.3) H 01/14/19 12:29 RDW Coeff of Courtney 14.5 % (11.5-14.5) 01/14/19 12:29 Plt Count 128 K/uL (130-400) L 01/14/19 12:29 MPV 10.4 fL (7.4-10.4) 01/14/19 12:29 Immature Gran % (Auto) 0.3 % 01/14/19 12:29 Neut % (Auto) 81.0 % 01/14/19 12:29 Lymph % (Auto) 8.4 % 01/14/19 12:29 [place] % (Auto) 9.1 % 01/14/19 12:29 Eos % (Auto) 1.1 % 01/14/19 12:29 Baso % (Auto) 0.1 % 01/14/19 12: Immature Gran # (Auto) 0.02 K/uL (0.00-0.02) 01/14/19 12:29 Neut # (Auto) 6.42 K/uL (1.4-6.5) 01/14/19 12: Lymph # (Auto) 0.67 K/uL (1.2-3.4) L 01/14/19 12:29 [place] # (Auto) 0.72 K/uL (0.11-0.59) H 01/14/19 12: Eos # (Auto) 0.09 K/uL (0-0.5) 01/14/19 12: Baso # (Auto) 0.01 K/uL (0-0.2) 01/14/19 12: PT 11.2 Seconds (9.0-12.0) 01/14/19 12: INR 1.1 (0.9-1.1) 01/14/19 12: APTT 56.9 Seconds (21.0-31.0) H* 01/14/19 19:05 PTT Ratio 2.1 01/14/19 19:05 Sodium 138 mmol/L (136-145) 01/14/19 06:19 Potassium 3.9 mmol/L (3.5-5.1) 01/14/19 06:19 Chloride 106 mmol/L (98-107) 01/14/19 06:19 Carbon Dioxide 26 mmol/L (21-32) 01/14/19 06:19 Anion Gap 5.0 (3-11) 01/14/19 06:19 BUN 28 mg/dl (7-18) H 01/14/19 06:19 Creatinine 1.31 mg/dl (0.6-1.2) H 01/14/19 06:19 Est Cr Clr Drug Dosing 37.8 ml/min 01/14/19 06:19 Est GFR ( Amer) 49.4 01/14/19 06:19 Est GFR (Non-Af Amer) 42.6 01/14/19 06:19 BUN/Creatinine Ratio 21.1 (10-20) H 01/14/19 06:19 Glucose 148 mg/dl (70-99) H 01/14/19 06:19 POC Glucose 201 (70-99) H 01/14/19 23:17 Estimat Average Glucose 126 mg/dl 12/18/18 13:08 Hemoglobin A1c 6.0 % (4.5-5.6) H 12/18/18 13:08 Calcium 8.9 mg/dl (8.5-10.1) 01/14/19 06:19 Albumin 4.0 gm/dl (3.4-5.0) 12/18/18 13:08 Urine Color Yellow 12/18/18 13:08 Urine Appearance Clear (Clear) 12/18/18 13:08 Urine pH 7.5 (4.5-7.5) 12/18/18 13:08 Ur Specific [place] 1.010 (1.000-1.030) 12/18/18 13:08 Urine Protein Negative (Negative) 12/18/18 13:08 Urine Glucose (UA) Negative (Negative) 12/18/18 13:08 Urine Ketones Negative (Negative) 12/18/18 13:08 Urine Blood Negative (Negative) 12/18/18 13:08 Urine Nitrite Negative (Negative) 12/18/18 13:08 Urine Bilirubin Negative (Negative) 12/18/18 13:08 Urine Urobilinogen Negative (Negative) 12/18/18 13:08 Ur Leukocyte Esterase Negative (Negative) 12/18/18 13:08 Blood Type A Positive 01/14/19 22:10 Antibody Screen NEGATIVE 01/14/19 22:[address] right knee: 1. Expected soft tissue change post total joint arthroplasty. 2. Expected joint effusion with perhaps mild to moderate suprapatellar bursa distention. 3. Otherwise negative study with postoperative basis
[2019-01-14] MEDS ORDERED: LORazepam 0.25 MG/0.5 ML VIAL IV PRN (22:52)
[2019-01-14] MEDS: INSULIN ASPART 100 UNITS/ML 3 ML PEN SC SCH (23:25)
[2019-01-14] MEDS ORDERED: INSULIN GLARGINE SOLOSTAR 100 UNITS/ML 3 ML PEN SC STA (23:41)
[2019-01-15] MEDS: HYDROmorphone INJ 0.5 MG/0.5 ML SYR IV PRN ×2 (02:26→12:04)
--- NOTE | 2019-01-15 06:07 | XRay Report ---
XR chest 1V portable CLINICAL HISTORY: 63 years-old Female presenting with crackles on exam. TECHNIQUE: Portable upright AP view of the chest was obtained. COMPARISON: 10/22/2018. FINDINGS: Moderate enlargement of the cardiopericardial silhouette. The double density in the retrocardiac chapis on likely represents significant left atrial enlargement. Median sternotomy wires and prosthetic valv e noted. Mild pulmonary vascular prominence. No other focal opacity. Trace bilateral pleural effusion s, left greater than right. No pneumothorax. Osseous structures normal. Upper abdomen normal. IMPRESSION: 1. Cardiomegaly with volume overload. No advanced congestive change or pulmonary edema. 2. Trace bilateral pleural effusions, left greater than right. Electronically signed by: Kristian Weir M.D. 01/15/2019 6:05 AM
[2019-01-15 06:31] LABS: Hematocrit (blood only) 27.1 % (37-47); Hemoglobin 8.5 g/dL (12.0-16.0); Mean Corpuscular Hemoglobin 27.9 pg (25-34); Mean Corpuscular Hgb Conc 31.4 g/dL (32-36); Mean Corpuscular Volume 88.9 fL (80-100); Platelet Count 113 K/uL (130-400); RDW Coefficient of Variation 14.9 % (11.5-14.5); RDW Standard Deviation 48.5 fL (36.4-46.3); Red Blood Count 3.05 M/uL (4.2-5.4)
[2019-01-15 06:42] LABS: INR 1.2 (0.9-1.1); Prothrombin Time 11.7 Seconds (9.0-12.0)
[2019-01-15] MEDS: LEVOTHYROXINE SODIUM 100 MCG TABLET PO SCH (06:47)
[2019-01-15 07:23] LABS: BUN Creatinine Ratio 15.1 (10-20); Calcium 8.8 mg/dl (8.5-10.1); Creatinine Clr Calc Pharmacy 41.6 ml/min; Est GFR (African American) 54.9; Est GFR (Non-African American) 47.4; Potassium 3.7 mmol/L (3.5-5.1)
[2019-01-15] MEDS: HYDROCODONE/ACETAMOPHEN 5/325MG TAB PO PRN ×3 (07:56→21:19)
--- NOTE | 2019-01-15 08:58 | Orthopedic Progress Note ---
Date of Service January 15, 2019 Assessment & Plan (1) S/P TKR (total knee replacement): 63 yo female stable POD #s s/p right TKA 1. Med management 2. DVT prophylaxis- on heparin and Coumadin, INR subtherapeutic, SCDs 3. PT/OT 4. D/C planning- home w/ HH when INR therapeutic Subjective Pt sitting in bed having breakfast, she's much less anxious this AM as had a CT of her knee and shows normal post-op effusion(pt concerned for post-op hemarthrosis given heparin/coumadin) Physical Exam Physical Exam: Silverlon dressing in place, normal post-op effusion, toes mobile, NVI, calves soft, NT Results & Data Vital Signs (Past 12 Hours) Vital Signs Temp Pulse Resp BP Pulse Ox 01/15/19 08:01 37.0 C 97 H 17 118/57 L 96 01/14/19 23:17 37.5 C 95 H 18 118/66 94 Laboratory Results 01/15/19 01/15/19 01/15/19 Range/Units 07:46 06:00 06:00 WBC 7.00 (4.8-10.8) K/uL RBC 3.05 L (4.2-5.4) M/uL Hgb 8.5 L (12.0-16.0) g/dL Hct 27.1 L (37-47) % MCV 88.9 (80-100) fL MCH 27.9 (25-34) pg MCHC 31.4 L (32-36) g/dL RDW Std Deviation 48.5 H (36.4-46.3) fL RDW Coeff of Courtney 14.9 H (11.5-14.5) % Plt Count 113 L (130-400) K/uL MPV 11.0 H (7.4-10.4) fL Immature Gran % (Auto) % Neut % (Auto) % Lymph % (Auto) % [place] % (Auto) % Eos % (Auto) % Baso % (Auto) % Immature Gran # (Auto) (0.00-0.02) K/uL Neut # (Auto) (1.4-6.5) K/uL Lymph # (Auto) (1.2-3.4) K/uL [place] # (Auto) (0.11-0.59) K/uL Eos # (Auto) (0-0.5) K/uL Baso # (Auto) (0-0.2) K/uL PT (9.0-12.0) Seconds INR (0.9-1.1) APTT (21.0-31.0) Seconds PTT Ratio Sodium 140 (136-145) mmol/L Potassium 3.7 (3.5-5.1) mmol/L Chloride 107 (98-107) mmol/L Carbon Dioxide 29 (21-32) mmol/L Anion Gap 4.0 (3-11) BUN 18 (7-18) mg/dl Creatinine 1.20 (0.6-1.2) mg/dl Est Cr Clr Drug Dosing 41.6 ml/min Est GFR ( Amer) 54.9 Est GFR (Non-Af Amer) 47.4 BUN/Creatinine Ratio 15.1 (10-20) Glucose 155 H (70-99) mg/dl POC Glucose 182 H (70-99) Calcium 8.8 (8.5-10.1) mg/dl Blood Type Antibody Screen 01/15/19 01/14/19 01/14/19 Range/Units 06:00 23:17 22:10 WBC (4.8-10.8) K/uL RBC (4.2-5.4) M/uL Hgb (12.0-16.0) g/dL Hct (37-47) % MCV (80-100) fL MCH (25-34) pg MCHC (32-36) g/dL RDW Std Deviation (36.4-46.3) fL RDW Coeff of Courtney (11.5-14.5) % Plt Count (130-400) K/uL MPV (7.4-10.4) fL Immature Gran % (Auto) % Neut % (Auto) % Lymph % (Auto) % [place] % (Auto) % Eos % (Auto) % Baso % (Auto) % Immature Gran # (Auto) (0.00-0.02) K/uL Neut # (Auto) (1.4-6.5) K/uL Lymph # (Auto) (1.2-3.4) K/uL [place] # (Auto) (0.11-0.59) K/uL Eos # (Auto) (0-0.5) K/uL Baso # (Auto) (0-0.2) K/uL PT 11.7 (9.0-12.0) Seconds INR 1.2 H (0.9-1.1) APTT (21.0-31.0) Seconds PTT Ratio Sodium (136-145) mmol/L Potassium (3.5-5.1) mmol/L Chloride (98-107) mmol/L Carbon Dioxide (21-32) mmol/L Anion Gap (3-11) BUN (7-18) mg/dl Creatinine (0.6-1.2) mg/dl Est Cr Clr Drug Dosing ml/min Est GFR ( Amer) Est GFR (Non-Af Amer) BUN/Creatinine Ratio (10-20) Glucose (70-99) mg/dl POC Glucose 201 H (70-99) Calcium (8.5-10.1) mg/dl Blood Type A Positive Antibody Screen NEGATIVE 01/14/19 01/14/19 01/14/19 Range/Units 20:06 19:05 16:47 WBC (4.8-10.8) K/uL RBC (4.2-5.4) M/uL Hgb (12.0-16.0) g/dL Hct (37-47) % MCV (80-100) fL MCH (25-34) pg MCHC (32-36) g/dL RDW Std Deviation (36.4-46.3) fL RDW Coeff of Courtney (11.5-14.5) % Plt Count (130-400) K/uL MPV (7.4-10.4) fL Immature Gran % (Auto) % Neut % (Auto) % Lymph % (Auto) % [place] % (Auto) % Eos % (Auto) % Baso % (Auto) % Immature Gran # (Auto) (0.00-0.02) K/uL Neut # (Auto) (1.4-6.5) K/uL Lymph # (Auto) (1.2-3.4) K/uL [place] # (Auto) (0.11-0.59) K/uL Eos # (Auto) (0-0.5) K/uL Baso # (Auto) (0-0.2) K/uL PT (9.0-12.0) Seconds INR (0.9-1.1) APTT 56.9 H* (21.0-31.0) Seconds PTT Ratio 2.1 Sodium (136-145) mmol/L Potassium (3.5-5.1) mmol/L Chloride (98-107) mmol/L Carbon Dioxide (21-32) mmol/L Anion Gap (3-11) BUN (7-18) mg/dl Creatinine (0.6-1.2) mg/dl Est Cr Clr Drug Dosing ml/min Est GFR ( Amer) Est GFR (Non-Af Amer) BUN/Creatinine Ratio (10-20) Glucose (70-99) mg/dl POC Glucose 201 H 187 H (70-99) Calcium (8.5-10.1) mg/dl Blood Type Antibody Screen 01/14/19 01/14/19 01/14/19 Range/Units 12:29 12:29 12:29 WBC 7.93 (4.8-10.8) K/uL RBC 3.25 L (4.2-5.4) M/uL Hgb 9.1 L (12.0-16.0) g/dL Hct 28.5 L (37-47) % MCV 87.7 (80-100) fL MCH 28.0 (25-34) pg MCHC 31.9 L (32-36) g/dL RDW Std Deviation 46.7 H (36.4-46.3) fL RDW Coeff of Courtney 14.5 (11.5-14.5) % Plt Count 128 L (130-400) K/uL MPV 10.4 (7.4-10.4) fL Immature Gran % (Auto) 0.3 % Neut % (Auto) 81.0 % Lymph % (Auto) 8.4 % [place] % (Auto) 9.1 % Eos % (Auto) 1.1 % Baso % (Auto) 0.1 % Immature Gran # (Auto) 0.02 (0.00-0.02) K/uL Neut # (Auto) 6.42 (1.4-6.5) K/uL Lymph # (Auto) 0.67 L (1.2-3.4) K/uL [place] # (Auto) 0.72 H (0.11-0.59) K/uL Eos # (Auto) 0.09 (0-0.5) K/uL Baso # (Auto) 0.01 (0-0.2) K/uL PT 11.2 (9.0-12.0) Seconds INR 1.1 (0.9-1.1) APTT 32.6 H (21.0-31.0) Seconds PTT Ratio 1.2 Sodium (136-145) mmol/L Potassium (3.5-5.1) mmol/L Chloride (98-107) mmol/L Carbon Dioxide (21-32) mmol/L Anion Gap (3-11) BUN (7-18) mg/dl Creatinine (0.6-1.2) mg/dl Est Cr Clr Drug Dosing ml/min Est GFR ( Amer) Est GFR (Non-Af Amer) BUN/Creatinine Ratio (10-20) Glucose (70-99) mg/dl POC Glucose (70-99) Calcium (8.5-10.1) mg/dl Blood Type Antibody Screen 01/14/19 Range/Units 11:33 WBC (4.8-10.8) K/uL RBC (4.2-5.4) M/uL Hgb (12.0-16.0) g/dL Hct (37-47) % MCV (80-100) fL MCH (25-34) pg MCHC (32-36) g/dL RDW Std Deviation (36.4-46.3) fL RDW Coeff of Courtney (11.5-14.5) % Plt Count (130-400) K/uL MPV (7.4-10.4) fL Immature Gran % (Auto) % Neut % (Auto) % Lymph % (Auto) % [place] % (Auto) % Eos % (Auto) % Baso % (Auto) % Immature Gran # (Auto) (0.00-0.02) K/uL Neut # (Auto) (1.4-6.5) K/uL Lymph # (Auto) (1.2-3.4) K/uL [place] # (Auto) (0.11-0.59) K/uL Eos # (Auto) (0-0.5) K/uL Baso # (Auto) (0-0.2) K/uL PT (9.0-12.0) Seconds INR (0.9-1.1) APTT (21.0-31.0) Seconds PTT Ratio Sodium (136-145) mmol/L Potassium (3.5-5.1) mmol/L Chloride (98-107) mmol/L Carbon Dioxide (21-32) mmol/L Anion Gap (3-11) BUN (7-18) mg/dl Creatinine (0.6-1.2) mg/dl Est Cr Clr Drug Dosing ml/min Est GFR ( Amer) Est GFR (Non-Af Amer) BUN/Creatinine Ratio (10-20) Glucose (70-99) mg/dl POC Glucose 148 H (70-99) Calcium (8.5-10.1) mg/dl Blood Type Antibody Screen (1) S/P TKR (total knee replacement) Laterality: left Qualified Code(s): Z96.652 - Presence of left artificial knee joint
[2019-01-15] MEDS: AMITRIPTYLINE HCL 25 MG TAB PO SCH ×2 (09:15→21:21)
[2019-01-15] MEDS: DOCUSATE SODIUM 100 MG CAP PO SCH ×2 (09:15→21:26)
[2019-01-15] MEDS: METOPROLOL TARTRATE 25 MG TAB PO SCH ×2 (09:16→21:21)
[2019-01-15] MEDS: FOLIC ACID 1 MG TAB PO SCH (09:16)
[2019-01-15] MEDS: ASCORBIC ACID 500 MG TAB PO SCH (09:16)
[2019-01-15] MEDS: POTASSIUM CHLORIDE 10 MEQ TABCR PO SCH (09:16)
[2019-01-15] MEDS: MULTIVITAMIN TAB PO SCH (09:16)
[2019-01-15] MEDS: FUROSEMIDE 40 MG TAB PO SCH (09:16)
[2019-01-15] MEDS: FERROUS SULFATE 325 MG TAB PO SCH (09:16)
[2019-01-15] MEDS: ROPINIROLE HCL 1 MG TABLET PO SCH ×3 (09:16→21:21)
[2019-01-15] MEDS: THIAMINE HCL 50 MG TABLET PO SCH (09:16)
[2019-01-15] MEDS: INSULIN ASPART 100 UNITS/ML 3 ML PEN SC SCH ×4 (09:25→21:26)
[2019-01-15 09:33] LABS: Partial Thromboplastin Ratio 3.2
[2019-01-15 09:36] LABS: Partial Thromboplastin Time 87.7 Seconds (21.0-31.0)
--- NOTE | 2019-01-15 11:29 | Cardiology Progress Note ---
Date of Service January 15, 2019 Assessment & Plan (1) Tricompartment degenerative joint disease of knee: (2) A-fib: (3) Myocardial infarction: (4) Mitral valve replaced: (5) Mechanical heart valve present: (6) History of CVA (cerebrovascular accident): (7) Diabetes type 2, controlled: (8) S/P TKR (total knee replacement): Patient is clinically stable. Her INR today. I would continue the IV heparin until the patient is therapeutic on warfarin. Subjective The patient had some discomfort in her right leg. Orthopedics evaluated her and she seems to be doing better. No bleeding problems. Review of Systems Review of Systems: All systems reviewed & are unremarkable except as noted in HPI & below Nothing additional to add Physical Exam Physical Exam: General: no acute distress and stated age Head: normocephalic, no masses, lesions, tenderness or abnormalities Eyes: conjunctiva are pink and non-injected, sclera clear Neck: supple, no adenopathy, no bruits, normal jugular venous pulse, no hepatojugular reflux Chest: normal shape and normal respiratory effort Lungs: clear to auscultation and percussion Cardiac Exam: - regular rate & rhythm, no murmurs gallops or rubs - normal S1, normal S2 Pulses: 2(+) throughout Abdomen: abdomen soft, non-tender, no abnormal masses and no hepatosplenomegaly Musculoskeletal: no gait disturbance, no joint inflammation, no deforming arthritis Extremities: no edema and no cyanosis Neuro: grossly normal exam Results & Data Vital Signs (Past 12 Hours) Vital Signs Temp Pulse Pulse Resp BP Pulse Ox 01/15/19 08:01 37.0 C 97 H 17 118/57 L 96 01/15/19 08:00 88 Laboratory Results Laboratory Results - last 24 hr 01/14/19 01/14/19 01/14/19 11:33 12:29 12:29 WBC 7.93 RBC 3.25 L Hgb 9.1 L Hct 28.5 L MCV 87.7 MCH 28.0 MCHC 31.9 L RDW Std Deviation 46.7 H RDW Coeff of Courtney 14.5 Plt Count 128 L MPV 10.4 Immature Gran % (Auto) 0.3 Neut % (Auto) 81.0 Lymph % (Auto) 8.4 Antelope % (Auto) 9.1 Eos % (Auto) 1.1 Baso % (Auto) 0.1 Immature Gran # (Auto) 0.02 Neut # (Auto) 6.42 Lymph # (Auto) 0.67 L Antelope # (Auto) 0.72 H Eos # (Auto) 0.09 Baso # (Auto) 0.01 PT 11.2 INR 1.1 APTT PTT Ratio Sodium Potassium Chloride Carbon Dioxide Anion Gap BUN Creatinine Est Cr Clr Drug Dosing Est GFR ( Amer) Est GFR (Non-Af Amer) BUN/Creatinine Ratio Glucose POC Glucose 148 H Calcium Blood Type Antibody Screen 01/14/19 01/14/19 01/14/19 12:29 16:47 19:05 WBC RBC Hgb Hct MCV MCH MCHC RDW Std Deviation RDW Coeff of Courtney Plt Count MPV Immature Gran % (Auto) Neut % (Auto) Lymph % (Auto) Antelope % (Auto) Eos % (Auto) Baso % (Auto) Immature Gran # (Auto) Neut # (Auto) Lymph # (Auto) Antelope # (Auto) Eos # (Auto) Baso # (Auto) PT INR APTT 32.6 H 56.9 H* PTT Ratio 1.2 2.1 Sodium Potassium Chloride Carbon Dioxide Anion Gap BUN Creatinine Est Cr Clr Drug Dosing Est GFR ( Amer) Est GFR (Non-Af Amer) BUN/Creatinine Ratio Glucose POC Glucose 187 H Calcium Blood Type Antibody Screen 01/14/19 01/14/19 01/14/19 20:06 22:10 23:17 WBC RBC Hgb Hct MCV MCH MCHC RDW Std Deviation RDW Coeff of Courtney Plt Count MPV Immature Gran % (Auto) Neut % (Auto) Lymph % (Auto) Antelope % (Auto) Eos % (Auto) Baso % (Auto) Immature Gran # (Auto) Neut # (Auto) Lymph # (Auto) Antelope # (Auto) Eos # (Auto) Baso # (Auto) PT INR APTT PTT Ratio Sodium Potassium Chloride Carbon Dioxide Anion Gap BUN Creatinine Est Cr Clr Drug Dosing Est GFR ( Amer) Est GFR (Non-Af Amer) BUN/Creatinine Ratio Glucose POC Glucose 201 H 201 H Calcium Blood Type A Positive Antibody Screen NEGATIVE 01/15/19 01/15/19 01/15/19 06:00 06:00 06:00 WBC 7.00 RBC 3.05 L Hgb 8.5 L Hct 27.1 L MCV 88.9 MCH 27.9 MCHC 31.4 L RDW Std Deviation 48.5 H RDW Coeff of Courtney 14.9 H Plt Count 113 L MPV 11.0 H Immature Gran % (Auto) Neut % (Auto) Lymph % (Auto) Antelope % (Auto) Eos % (Auto) Baso % (Auto) Immature Gran # (Auto) Neut # (Auto) Lymph # (Auto) Antelope # (Auto) Eos # (Auto) Baso # (Auto) PT 11.7 INR 1.2 H APTT PTT Ratio Sodium 140 Potassium 3.7 Chloride 107 Carbon Dioxide 29 Anion Gap 4.0 BUN 18 Creatinine 1.20 Est Cr Clr Drug Dosing 41.6 Est GFR ( Amer) 54.9 Est GFR (Non-Af Amer) 47.4 BUN/Creatinine Ratio 15.1 Glucose 155 H POC Glucose Calcium 8.8 Blood Type Antibody Screen 01/15/19 01/15/19 07:46 09:01 WBC RBC Hgb Hct MCV MCH MCHC RDW Std Deviation RDW Coeff of Courtney Plt Count MPV Immature Gran % (Auto) Neut % (Auto) Lymph % (Auto) Antelope % (Auto) Eos % (Auto) Baso % (Auto) Immature Gran # (Auto) Neut # (Auto) Lymph # (Auto) Antelope # (Auto) Eos # (Auto) Baso # (Auto) PT INR APTT 87.7 H* PTT Ratio 3.2 Sodium Potassium Chloride Carbon Dioxide Anion Gap BUN Creatinine Est Cr Clr Drug Dosing Est GFR ( Amer) Est GFR (Non-Af Amer) BUN/Creatinine Ratio Glucose POC Glucose 182 H Calcium Blood Type Antibody Screen Medications Administered Current Inpatient Medications Hydrocodone Bitart/Acetaminophen (Roy 5/325) 1 - 2 tab PO Q4H PRN PRN Reason: Pain Stop: 01/27/19 10:53 Last Admin: 01/15/19 07:56 Dose: 2 tab Documented by: Amitriptyline HCl (Elavil) 50 mg PO BID PRISCILA Stop: 02/12/19 20:59 Last Admin: 01/15/19 09:15 Dose: 50 mg Documented by: Ascorbic Acid (Vitamin C) 500 mg PO DAILY PRISCILA Stop: 02/13/19 08:59 Last Admin: 01/15/19 09:16 Dose: 500 mg Documented by: Bisacodyl (Dulcolax) 10 mg GA DAILY PRN PRN Reason: Constipation Stop: 02/12/19 10:53 Dextrose (Dextrose 50%) 25 - 50 ml IV UD PRN; Protocol PRN Reason: Hypoglycemia Protocol Stop: 02/13/19 22:41 Diazepam (Valium) 2 mg PO Q8H PRN PRN Reason: anxiety and spasm Stop: 02/13/19 20:14 Diphenhydramine HCl (Benadryl Capsule) 25 mg PO Q8H PRN PRN Reason: Itching Stop: 02/12/19 10:53 Docusate Sodium (Colace) 100 mg PO BID PRISCILA Stop: 02/12/19 20:59 Last Admin: 01/15/19 09:15 Dose: 100 mg Documented by: Ferrous Sulfate (Feosol) 325 mg PO DAILY PRISCILA Stop: 02/13/19 08:59 Last Admin: 01/15/19 09:16 Dose: 325 mg Documented by: Folic Acid (Folvite) 1 mg PO QAM PRISCILA Stop: 02/13/19 08:59 Last Admin: 01/15/19 09:16 Dose: 1 mg Documented by: Furosemide (Lasix) 40 mg PO QAM PRISCILA Stop: 02/13/19 08:59 Last Admin: 01/15/19 09:16 Dose: 40 mg Documented by: Glucagon (Glucagen) 1 mg SQ UD PRN; Protocol PRN Reason: Hypoglycemia Protocol Stop: 02/13/19 22:41 Glucose (Dex4 Glucose) 4 - 8 tabs PO UD PRN; Protocol PRN Reason: Hypoglycemia Protocol Stop: 02/13/19 22:41 Glucose (Glucose 40%) 15 - 30 gm PO UD PRN; Protocol PRN Reason: Hypoglycemia Protocol Stop: 02/13/19 22:41 Hydromorphone HCl (Dilaudid) 0.5 mg IV Q4H PRN PRN Reason: Pain Stop: 01/27/19 10:53 Last Admin: 01/15/19 02:26 Dose: 0.5 mg Documented by: Heparin Sodium/Dextrose (Heparin Sodium/Dextrose) 25,000 units in 500 mls @ 18 mls/hr IV .Q24H PRISCILA; Protocol Stop: 02/13/19 12:59 Last Titration: 01/15/19 10:10 Dose: 900 units/hr, 18 mls/hr Documented by: Lorazepam (Ativan) 0.25 mg in 0.5 mls @ 0.5 mls/min IV Q4H PRN PRN Reason: Anxiety Stop: 02/13/19 22:51 Insulin Aspart (Novolog Flexpen) 0 units SC ACHS PRISCILA Stop: 02/13/19 22:44 Last Admin: 01/15/19 09:25 Dose: 5 units Documented by: Insulin Glargine (Lantus Solostar Pen) 5 units SQ DAILY PRISCILA Stop: 02/15/19 08:59 Levothyroxine Sodium (Synthroid) 100 mcg PO DAILYBB PRISCILA Stop: 02/13/19 06:29 Last Admin: 01/15/19 06:47 Dose: 100 mcg Documented by: Magnesium Hydroxide (Milk Of Magnesia) 30 ml PO Q6H PRN PRN Reason: Constipation Stop: 02/12/19 10:53 Metoclopramide HCl (Reglan) 10 mg IV Q6H PRN PRN Reason: Nausea And Vomiting Stop: 02/12/19 10:53 Metoprolol Tartrate (Lopressor) 25 mg PO BID [facility] Stop: 02/12/19 20:59 Last Admin: 01/15/19 09:16 Dose: 25 mg Documented by: Miscellaneous (Carbohydrates For Hypoglycemia) 15 - 30 gm PO UD PRN PRN Reason: Hypoglycemia Protocol Stop: 02/13/19 22:41 Multivitamins (Multivitamin Tab) 1 tab PO QAM [facility] Stop: 02/13/19 08:59 Last Admin: 01/15/19 09:16 Dose: 1 tab Documented by: Naloxone HCl (Narcan) 0.1 mg IV Q5M PRN PRN Reason: Oversedation/Resp Depression Stop: 02/12/19 10:53 Nitroglycerin (Nitrostat) 0.4 mg SL UD PRN PRN Reason: Chest Pain Stop: 02/12/19 10:53 Pantoprazole Sodium (Protonix) 40 mg PO PM PRISCILA Stop: 02/12/19 20:59 Last Admin: 01/14/19 21:13 Dose: 40 mg Documented by: Potassium Chloride (Klor-Con M10) 10 meq PO QAM PRISCILA Stop: 02/13/19 08:59 Last Admin: 01/15/19 09:16 Dose: 10 meq Documented by: Ropinirole HCl (Requip) 2 mg PO TID [facility] Stop: 02/12/19 13:59 Last Admin: 01/15/19 09:16 Dose: 2 mg Documented by: Rosuvastatin Calcium (Crestor) 10 mg PO QPM PRISCILA Stop: 02/12/19 20:59 Last Admin: 01/14/19 21:12 Dose: 10 mg Documented by: Sennosides (Senokot) 17.2 mg PO HS [facility] Stop: 02/12/19 20:59 Last Admin: 01/14/19 21:12 Dose: Not Given Documented by: Thiamine HCl (Vitamin B-1) 50 mg PO QAM [facility] Stop: 02/13/19 08:59 Last Admin: 01/15/19 09:16 Dose: 50 mg Documented by: Warfarin Sodium (Coumadin) 10 mg PO DAILY@1600 [facility] Stop: 02/13/19 15:59 Last Admin: 01/14/19 15:36 Dose: 10 mg Documented by: (1) Diabetes type 2, controlled Diabetes mellitus complication status: without complication 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
--- NOTE | 2019-01-15 12:25 | Hospitalist Progress Note ---
Date of Service January 15, 2019 Assessment & Plan (1) Knee pain: S/P RT KNEE REPLACEMENT : due to severe DJD post op pain has improved CT of knee showed normal post op effusion appreciate input form Ortho cont PT/OT (2) Mechanical heart valve present: continue on Coumadin and IV heparin cardiology following (3) Diabetes type 2, controlled: on sliding scale (4) Hypothyroidism: cont levothyroxine Subjective rt knee pain has improved no swelling or bleeding noted sitting up on edge of bed no complain of palpitation , no fever or chills Physical Exam Constitutional: WD/WN, vitals as above no acute distress Eyes: PERRL, conjunctivae normal, anicteric sclerae ENMT: external ear and nose normal, oropharynx normal Neck: trachea midline, no thyromegaly Respiratory: normal respiratory effort, lungs clear to auscultation Cardiovascular: RRR, no murmur, no edema Gastrointestinal (Abdomen): normal bowel sounds, soft, nontender, no hepatosplenomegaly Musculoskeletal: Extremities: + joint enlargement (s/p rt knee surgery .no active bleeding or swelling noted ) Skin: no rashes, warm and dry Neurologic: PERRL, EOMI, accommodation nl, no face palsy, no dysarthria Psychiatric: A+Ox3, euthymic affect Results & Data Vital Signs (Past 12 Hours) Vital Signs Temp Pulse Pulse Resp BP Pulse Ox 01/15/19 12:00 149/67 H 01/15/19 08:01 37.0 C 97 H 17 118/57 L 96 01/15/19 08:00 88 (1) Diabetes type 2, controlled Diabetes mellitus complication status: without complication Diabetes mellitus residential insulin use: without remote computer terminal operator use Qualified Code(s): E11.9 - Type 2 diabetes mellitus without complications
[2019-01-15] MEDS: HEPARIN SODIUM/DEXTROSE 25,000 UNITS/500 ML BAG IV SCH (15:15)
[2019-01-15] MEDS: WARFARIN SOD 10 MG TAB PO SCH (16:37)
[2019-01-15 16:43] LABS: Partial Thromboplastin Ratio 2.8
[2019-01-15 16:51] LABS: Partial Thromboplastin Time 76.6 Seconds (21.0-31.0)
[2019-01-15] MEDS ORDERED: ALBUT/IPRATROP 3MG/0.5MG NEB 3 ML VIAL NEB PRN (17:48)
[2019-01-15] MEDS: SENNA 8.6 MG TAB PO SCH (21:22)
[2019-01-15] MEDS: ROSUVASTATIN CALCIUM 10 MG TAB PO SCH (21:22)
[2019-01-15] MEDS: PANTOprazole 40 MG TAB PO SCH (21:22)
[2019-01-16] MEDS: HYDROmorphone INJ 0.5 MG/0.5 ML SYR IV PRN ×4 (03:03→20:50)
[2019-01-16] MEDS: HYDROCODONE/ACETAMOPHEN 5/325MG TAB PO PRN ×3 (05:00→14:45)
[2019-01-16] MEDS: LEVOTHYROXINE SODIUM 100 MCG TABLET PO SCH (05:01)
[2019-01-16 06:01] LABS: Hematocrit (blood only) 24.9 % (37-47); Hemoglobin 7.8 g/dL (12.0-16.0); Mean Corpuscular Hemoglobin 28.2 pg (25-34); Mean Corpuscular Hgb Conc 31.3 g/dL (32-36); Mean Corpuscular Volume 89.9 fL (80-100); Mean Platelet Volume 10.7 fL (7.4-10.4); Platelet Count 115 K/uL (130-400); RDW Standard Deviation 49.6 fL (36.4-46.3); Red Blood Count 2.77 M/uL (4.2-5.4); White Blood Count 7.67 K/uL (4.8-10.8)
[2019-01-16 06:28] LABS: INR 1.5 (0.9-1.1); Partial Thromboplastin Ratio 2.7; Prothrombin Time 14.9 Seconds (9.0-12.0)
[2019-01-16 06:30] LABS: Partial Thromboplastin Time 72.7 Seconds (21.0-31.0)
[2019-01-16 06:39] LABS: BUN Creatinine Ratio 11.6 (10-20); Calcium 9.1 mg/dl (8.5-10.1); Creatinine Clr Calc Pharmacy 42.7 ml/min; Est GFR (African American) 56.6; Est GFR (Non-African American) 48.9
[2019-01-16] MEDS: MULTIVITAMIN TAB PO SCH ×2 (08:27→08:38)
[2019-01-16] MEDS: AMITRIPTYLINE HCL 25 MG TAB PO SCH ×2 (08:27→20:52)
[2019-01-16] MEDS: METOPROLOL TARTRATE 25 MG TAB PO SCH ×2 (08:27→20:52)
[2019-01-16] MEDS: ROPINIROLE HCL 1 MG TABLET PO SCH ×3 (08:27→20:51)
[2019-01-16] MEDS: FUROSEMIDE 40 MG TAB PO SCH (08:28)
[2019-01-16] MEDS: POTASSIUM CHLORIDE 10 MEQ TABCR PO SCH (08:28)
[2019-01-16] MEDS: FOLIC ACID 1 MG TAB PO SCH (08:28)
[2019-01-16] MEDS: FERROUS SULFATE 325 MG TAB PO SCH (08:28)
[2019-01-16] MEDS: THIAMINE HCL 50 MG TABLET PO SCH (08:28)
[2019-01-16] MEDS: ASCORBIC ACID 500 MG TAB PO SCH (08:28)
[2019-01-16] MEDS: INSULIN GLARGINE SOLOSTAR 100 UNITS/ML 3 ML PEN SQ SCH (08:28)
[2019-01-16] MEDS: INSULIN ASPART 100 UNITS/ML 3 ML PEN SC SCH ×4 (08:29→20:52)
--- NOTE | 2019-01-16 08:31 | Orthopedic Progress Note ---
Date of Service January 16, 2019 Assessment & Plan (1) Status post total right knee replacement: 63 yo female stable POD #3 s/p right TKA, acute blood loss anemia(asympto), subtherapeutic INR 1. Med management- monitor H/H 2. DVT prophylaxis- cont heparin and Coumadin, SCDs 3. PT/OT 4. D/C planning- home w/ HH Supervising Physician Co-Signing Physician Notes Patient seen and examined this morning. I agree with JOSÉ MIGUEL Wolfe's note above. She has some pain in her right knee, but pain is well controlled on medications. She has a mechanical heart valve, and is on chronic Coumadin with a target INR of 3.0-3.5. INR was 1.5 this morning. She is receiving Coumadin 10 mg daily. She is receiving heparin IV as bridge therapy until she reaches her target INR. She does have anemia, with Hct/Hgb 24.9/7.8, down from 27.1/8.5 yesterday. Fortunately, she remains completely asymptomatic from this. She denies any dizziness or lightheadedness with sitting or standing. We will therefore hold off on transfusion for now, but may need to do this if she becomes symptomatic. Subjective Pt resting in bed, pain controlled, denies complaints Physical Exam Physical Exam: Silverlon dressing intact, expected knee effusion, calf soft, NT, toes mobile Results & Data Vital Signs (Past 12 Hours) Vital Signs Temp Pulse Resp BP BP Pulse Ox 01/16/19 08:18 36.7 C 97 H 16 112/64 96 01/16/19 04:18 37.1 C 94 H 18 107/63 97 01/16/19 00:21 37.1 C 79 17 101/64 96 01/15/19 21:19 36.9 C 118 H 20 121/56 L 96 Laboratory Results 01/16/19 01/16/19 01/16/19 Range/Units 07:48 05:30 05:30 WBC 7.67 (4.8-10.8) K/uL RBC 2.77 L (4.2-5.4) M/uL Hgb 7.8 L (12.0-16.0) g/dL Hct 24.9 L (37-47) % MCV 89.9 (80-100) fL MCH 28.2 (25-34) pg MCHC 31.3 L (32-36) g/dL RDW Std Deviation 49.6 H (36.4-46.3) fL RDW Coeff of Courtney 15.0 H (11.5-14.5) % Plt Count 115 L (130-400) K/uL MPV 10.7 H (7.4-10.4) fL PT (9.0-12.0) Seconds INR (0.9-1.1) APTT (21.0-31.0) Seconds PTT Ratio Sodium 136 (136-145) mmol/L Potassium 4.0 (3.5-5.1) mmol/L Chloride 102 (98-107) mmol/L Carbon Dioxide 29 (21-32) mmol/L Anion Gap 5.0 (3-11) BUN 14 (7-18) mg/dl Creatinine 1.17 (0.6-1.2) mg/dl Est Cr Clr Drug Dosing 42.7 ml/min Est GFR ( Amer) 56.6 Est GFR (Non-Af Amer) 48.9 BUN/Creatinine Ratio 11.6 (10-20) Glucose 138 H (70-99) mg/dl POC Glucose 141 H (70-99) Calcium 9.1 (8.5-10.1) mg/dl 01/16/19 01/15/19 01/15/19 Range/Units 05:30 22:43 20:57 WBC (4.8-10.8) K/uL RBC (4.2-5.4) M/uL Hgb (12.0-16.0) g/dL Hct (37-47) % MCV (80-100) fL MCH (25-34) pg MCHC (32-36) g/dL RDW Std Deviation (36.4-46.3) fL RDW Coeff of Courtney (11.5-14.5) % Plt Count (130-400) K/uL MPV (7.4-10.4) fL PT 14.9 H (9.0-12.0) Seconds INR 1.5 H (0.9-1.1) APTT 72.7 H* 80.0 H* (21.0-31.0) Seconds PTT Ratio 2.7 3.0 Sodium (136-145) mmol/L Potassium (3.5-5.1) mmol/L Chloride (98-107) mmol/L Carbon Dioxide (21-32) mmol/L Anion Gap (3-11) BUN (7-18) mg/dl Creatinine (0.6-1.2) mg/dl Est Cr Clr Drug Dosing ml/min Est GFR ( Amer) Est GFR (Non-Af Amer) BUN/Creatinine Ratio (10-20) Glucose (70-99) mg/dl POC Glucose 204 H (70-99) Calcium (8.5-10.1) mg/dl 01/15/19 01/15/19 01/15/19 Range/Units 17:28 16:12 11:52 WBC (4.8-10.8) K/uL RBC (4.2-5.4) M/uL Hgb (12.0-16.0) g/dL Hct (37-47) % MCV (80-100) fL MCH (25-34) pg MCHC (32-36) g/dL RDW Std Deviation (36.4-46.3) fL RDW Coeff of Courtney (11.5-14.5) % Plt Count (130-400) K/uL MPV (7.4-10.4) fL PT (9.0-12.0) Seconds INR (0.9-1.1) APTT 76.6 H* (21.0-31.0) Seconds PTT Ratio 2.8 Sodium (136-145) mmol/L Potassium (3.5-5.1) mmol/L Chloride (98-107) mmol/L Carbon Dioxide (21-32) mmol/L Anion Gap (3-11) BUN (7-18) mg/dl Creatinine (0.6-1.2) mg/dl Est Cr Clr Drug Dosing ml/min Est GFR ( Amer) Est GFR (Non-Af Amer) BUN/Creatinine Ratio (10-20) Glucose (70-99) mg/dl POC Glucose 189 H 104 H (70-99) Calcium (8.5-10.1) mg/dl 01/15/19 Range/Units 09:01 WBC (4.8-10.8) K/uL RBC (4.2-5.4) M/uL Hgb (12.0-16.0) g/dL Hct (37-47) % MCV (80-100) fL MCH (25-34) pg MCHC (32-36) g/dL RDW Std Deviation (36.4-46.3) fL RDW Coeff of Courtney (11.5-14.5) % Plt Count (130-400) K/uL MPV (7.4-10.4) fL PT (9.0-12.0) Seconds INR (0.9-1.1) APTT 87.7 H* (21.0-31.0) Seconds PTT Ratio 3.2 Sodium (136-145) mmol/L Potassium (3.5-5.1) mmol/L Chloride (98-107) mmol/L Carbon Dioxide (21-32) mmol/L Anion Gap (3-11) BUN (7-18) mg/dl Creatinine (0.6-1.2) mg/dl Est Cr Clr Drug Dosing ml/min Est GFR ( Amer) Est GFR (Non-Af Amer) BUN/Creatinine Ratio (10-20) Glucose (70-99) mg/dl POC Glucose (70-99) Calcium (8.5-10.1) mg/dl
--- NOTE | 2019-01-16 11:29 | Hospitalist Progress Note ---
Date of Service January 16, 2019 Assessment & Plan (1) Knee pain: S/P RT KNEE REPLACEMENT : due to severe DJD post op pain has improved CT of knee showed normal post op effusion appreciate input form Ortho cont PT/OT (2) Mechanical heart valve present: continue on Coumadin and IV heparin INR remains sub Therapeutic need to be on bridge therapy till INR 2.5-> 3 cardiology following appreciate input no acute cardiac issues noted ANEMIA : possible due to post op status /acute blood loss as pt is on anticoagulation with IV heparin /Coumadin -risk for ongoing Hge remains high recent CT of knee showed no evidence of hematoma cont to monitor H&H closely transfuse of hb < 7 or if symptomatic (3) Diabetes type 2, controlled: on sliding scale insulin (4) Hypothyroidism: cont levothyroxine DVT PROPHYLAXIS : on IV heparin and coumadin DISPOSITION : Plan is to discharge home with home PT when INR theraputic Subjective doing well rt knee pain tolerable s/p TKA no increased swelling no drainage from the incision no cough /SOB no fever or chills Physical Exam Constitutional: WD/WN, vitals as above no acute distress Eyes: PERRL, conjunctivae normal, anicteric sclerae ENMT: external ear and nose normal, oropharynx normal Neck: trachea midline, no thyromegaly Respiratory: normal respiratory effort, lungs clear to auscultation Cardiovascular: RRR, no murmur, no edema Gastrointestinal (Abdomen): normal bowel sounds, soft, nontender, no hepatosplenomegaly Musculoskeletal: Extremities: + joint enlargement (s/p rt knee surgery .no active bleeding or swelling noted ) Skin: no rashes, warm and dry Neurologic: PERRL, EOMI, accommodation nl, no face palsy, no dysarthria Psychiatric: A+Ox3, euthymic affect Results & Data Vital Signs (Past 12 Hours) Vital Signs Temp Pulse Resp BP Pulse Ox 01/16/19 08:18 36.7 C 97 H 16 112/64 96 01/16/19 04:18 37.1 C 94 H 18 107/63 97 01/16/19 00:21 37.1 C 79 17 101/64 96 (1) Diabetes type 2, controlled Diabetes mellitus complication status: without complication 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
--- NOTE | 2019-01-16 12:16 | Cardiology Progress Note ---
Date of Service January 16, 2019 Assessment & Plan (1) Tricompartment degenerative joint disease of knee: (2) A-fib: (3) Myocardial infarction: (4) Mitral valve replaced: (5) Mechanical heart valve present: (6) History of CVA (cerebrovascular accident): (7) Diabetes type 2, controlled: (8) S/P TKR (total knee replacement): The INR is 1.5 today. We will continue IV heparin until warfarin is therapeutic. Subjective The patient had an uneventful night and has no new cardiac complaints. Review of Systems Review of Systems: All systems reviewed & are unremarkable except as noted in HPI & below Nothing additional to add Physical Exam Physical Exam: General: no acute distress and stated age Head: normocephalic, no masses, lesions, tenderness or abnormalities Eyes: conjunctiva are pink and non-injected, sclera clear Neck: supple, no adenopathy, no bruits, normal jugular venous pulse, no hepatojugular reflux Chest: normal shape and normal respiratory effort Lungs: clear to auscultation and percussion Cardiac Exam: - regular rate & rhythm, no murmurs gallops or rubs -mechanical S1, normal S2 Pulses: 2(+) throughout Abdomen: abdomen soft, non-tender, no abnormal masses and no hepatosplenomegaly Musculoskeletal: no gait disturbance, no joint inflammation, no deforming arthritis Extremities: Right total knee replacement Neuro: grossly normal exam Results & Data Vital Signs (Past 12 Hours) Vital Signs Temp Pulse Resp BP BP Pulse Ox 01/16/19 11:40 37.1 C 98 H 18 156/74 H 97 01/16/19 08:18 36.7 C 97 H 16 112/64 96 01/16/19 04:18 37.1 C 94 H 18 107/63 97 01/16/19 00:21 37.1 C 79 17 101/64 96 Laboratory Results Laboratory Results - last 24 hr 01/15/19 01/15/19 01/15/19 16:12 17:28 20:57 WBC RBC Hgb Hct MCV MCH MCHC RDW Std Deviation RDW Coeff of Courtney Plt Count MPV PT INR APTT 76.6 H* PTT Ratio 2.8 Sodium Potassium Chloride Carbon Dioxide Anion Gap BUN Creatinine Est Cr Clr Drug Dosing Est GFR ( Amer) Est GFR (Non-Af Amer) BUN/Creatinine Ratio Glucose POC Glucose 189 H 204 H Calcium 01/15/19 01/16/19 01/16/19 22:43 05:30 05:30 WBC 7.67 RBC 2.77 L Hgb 7.8 L Hct 24.9 L MCV 89.9 MCH 28.2 MCHC 31.3 L RDW Std Deviation 49.6 H RDW Coeff of Courtney 15.0 H Plt Count 115 L MPV 10.7 H PT 14.9 H INR 1.5 H APTT 80.0 H* 72.7 H* PTT Ratio 3.0 2.7 Sodium Potassium Chloride Carbon Dioxide Anion Gap BUN Creatinine Est Cr Clr Drug Dosing Est GFR ( Amer) Est GFR (Non-Af Amer) BUN/Creatinine Ratio Glucose POC Glucose Calcium 01/16/19 01/16/19 01/16/19 05:30 07:48 09:50 WBC RBC Hgb Hct MCV MCH MCHC RDW Std Deviation RDW Coeff of Courtney Plt Count MPV PT INR APTT Cancelled PTT Ratio Cancelled Sodium 136 Potassium 4.0 Chloride 102 Carbon Dioxide 29 Anion Gap 5.0 BUN 14 Creatinine 1.17 Est Cr Clr Drug Dosing 42.7 Est GFR ( Amer) 56.6 Est GFR (Non-Af Amer) 48.9 BUN/Creatinine Ratio 11.6 Glucose 138 H POC Glucose 141 H Calcium 9.1 01/16/19 11:44 WBC RBC Hgb Hct MCV MCH MCHC RDW Std Deviation RDW Coeff of Courtney Plt Count MPV PT INR APTT PTT Ratio Sodium Potassium Chloride Carbon Dioxide Anion Gap BUN Creatinine Est Cr Clr Drug Dosing Est GFR ( Amer) Est GFR (Non-Af Amer) BUN/Creatinine Ratio Glucose POC Glucose 119 H Calcium Medications Administered Current Inpatient Medications Hydrocodone Bitart/Acetaminophen ([place] 5/325) 1 - 2 tab PO Q4H PRN PRN Reason: Pain Stop: 01/27/19 10:53 Last Admin: 01/16/19 08:43 Dose: 2 tab Documented by: Albuterol (Duoneb) 3 ml NEB Q4R PRN PRN Reason: Wheeze Stop: 02/14/19 18:59 Last Admin: 01/15/19 18:04 Dose: 3 ml Documented by: Amitriptyline HCl (Elavil) 50 mg PO BID PRISC[facility] Stop: 02/12/19 20:59 Last Admin: 01/16/19 08:27 Dose: 50 mg Documented by: Ascorbic Acid (Vitamin C) 500 mg PO DAILY PRISCILA Stop: 02/13/19 08:59 Last Admin: 01/16/19 08:28 Dose: 500 mg Documented by: Bisacodyl (Dulcolax) 10 mg OR DAILY PRN PRN Reason: Constipation Stop: 02/12/19 10:53 Dextrose (Dextrose 50%) 25 - 50 ml IV UD PRN; Protocol PRN Reason: Hypoglycemia Protocol Stop: 02/13/19 22:41 Diazepam (Valium) 2 mg PO Q8H PRN PRN Reason: anxiety and spasm Stop: 02/13/19 20:14 Diphenhydramine HCl (Benadryl Capsule) 25 mg PO Q8H PRN PRN Reason: Itching Stop: 02/12/19 10:53 Docusate Sodium (Colace) 100 mg PO BID PRISCILA Stop: 02/12/19 20:59 Last Admin: 01/15/19 21:26 Dose: 100 mg Documented by: Ferrous Sulfate (Feosol) 325 mg PO DAILY PRISCILA Stop: 02/13/19 08:59 Last Admin: 01/16/19 08:28 Dose: 325 mg Documented by: Folic Acid (Folvite) 1 mg PO QAM PRISCILA Stop: 02/13/19 08:59 Last Admin: 01/16/19 08:28 Dose: 1 mg Documented by: Furosemide (Lasix) 40 mg PO QAM PRISCILA Stop: 02/13/19 08:59 Last Admin: 01/16/19 08:28 Dose: 40 mg Documented by: Glucagon (Glucagen) 1 mg SQ UD PRN; Protocol PRN Reason: Hypoglycemia Protocol Stop: 02/13/19 22:41 Glucose (Dex4 Glucose) 4 - 8 tabs PO UD PRN; Protocol PRN Reason: Hypoglycemia Protocol Stop: 02/13/19 22:41 Glucose (Glucose 40%) 15 - 30 gm PO UD PRN; Protocol PRN Reason: Hypoglycemia Protocol Stop: 02/13/19 22:41 Hydromorphone HCl (Dilaudid) 0.5 mg IV Q4H PRN PRN Reason: Pain Stop: 01/27/19 10:53 Last Admin: 01/16/19 11:15 Dose: 0.5 mg Documented by: Heparin Sodium/Dextrose (Heparin Sodium/Dextrose) 25,000 units in 500 mls @ 13 mls/hr IV .Q24H [facility]; Protocol Stop: 02/13/19 12:59 Last Titration: 01/16/19 07:30 Dose: 650 units/hr, 13 mls/hr Documented by: Lorazepam (Ativan) 0.25 mg in 0.5 mls @ 0.5 mls/min IV Q4H PRN PRN Reason: Anxiety Stop: 02/13/19 22:51 Insulin Aspart (Novolog Flexpen) 0 units SC ACHS [facility] Stop: 02/13/19 22:44 Last Admin: 01/16/19 08:29 Dose: 2 units Documented by: Insulin Glargine (Lantus Solostar Pen) 5 units SQ DAILY [facility] Stop: 02/15/19 08:59 Last Admin: 01/16/19 08:28 Dose: 5 units Documented by: Levothyroxine Sodium (Synthroid) 100 mcg PO DAILYBB [facility] Stop: 02/13/19 06:29 Last Admin: 01/16/19 05:01 Dose: 100 mcg Documented by: Magnesium Hydroxide (Milk Of Magnesia) 30 ml PO Q6H PRN PRN Reason: Constipation Stop: 02/12/19 10:53 Metoclopramide HCl (Reglan) 10 mg IV Q6H PRN PRN Reason: Nausea And Vomiting Stop: 02/12/19 10:53 Metoprolol Tartrate (Lopressor) 25 mg PO BID [facility] Stop: 02/12/19 20:59 Last Admin: 01/16/19 08:27 Dose: 25 mg Documented by: Miscellaneous (Carbohydrates For Hypoglycemia) 15 - 30 gm PO UD PRN PRN Reason: Hypoglycemia Protocol Stop: 02/13/19 22:41 Multivitamins (Multivitamin Tab) 1 tab PO QAM [facility] Stop: 02/13/19 08:59 Last Admin: 01/16/19 08:38 Dose: Not Given Documented by: Naloxone HCl (Narcan) 0.1 mg IV Q5M PRN PRN Reason: Oversedation/Resp Depression Stop: 02/12/19 10:53 Nitroglycerin (Nitrostat) 0.4 mg SL UD PRN PRN Reason: Chest Pain Stop: 02/12/19 10:53 Pantoprazole Sodium (Protonix) 40 mg PO PM [facility] Stop: 02/12/19 20:59 Last Admin: 01/15/19 21:22 Dose: 40 mg Documented by: Potassium Chloride (Klor-Con M10) 10 meq PO QAM [facility] Stop: 02/13/19 08:59 Last Admin: 01/16/19 08:28 Dose: 10 meq Documented by: Ropinirole HCl (Requip) 2 mg PO TID [facility] Stop: 02/12/19 13:59 Last Admin: 01/16/19 08:27 Dose: 2 mg Documented by: Rosuvastatin Calcium (Crestor) 10 mg PO QPM [facility] Stop: 02/12/19 20:59 Last Admin: 01/15/19 21:22 Dose: 10 mg Documented by: Sennosides (Senokot) 17.2 mg PO HS PRISC[facility] Stop: 02/12/19 20:59 Last Admin: 01/15/19 21:22 Dose: Not Given Documented by: Thiamine HCl (Vitamin B-1) 50 mg PO QAM [facility] Stop: 02/13/19 08:59 Last Admin: 01/16/19 08:28 Dose: 50 mg Documented by: Warfarin Sodium (Coumadin) 7.5 mg PO DAILY@1600 [facility] Stop: 02/15/19 15:59 (1) Diabetes type 2, controlled Diabetes mellitus supervisor intermediates insulin use: without fdc use Diabetes mellitus complication status: without complication Qualified Code(s): E11.9 - Type 2 diabetes mellitus without complications (2) S/P TKR (total knee replacement) Laterality: left Qualified Code(s): Z96.652 - Presence of left artificial knee joint
[2019-01-16] MEDS: DOCUSATE SODIUM 100 MG CAP PO SCH ×2 (12:23→20:51)
[2019-01-16 13:01] LABS: Partial Thromboplastin Ratio 2.2
[2019-01-16 13:05] LABS: Partial Thromboplastin Time 59.8 Seconds (21.0-31.0)
[2019-01-16] MEDS: WARFARIN SOD 7.5 MG TAB PO SCH (17:06)
[2019-01-16] MEDS: PANTOprazole 40 MG TAB PO SCH (20:51)
[2019-01-16] MEDS: ROSUVASTATIN CALCIUM 10 MG TAB PO SCH (20:51)
[2019-01-16] MEDS: SENNA 8.6 MG TAB PO SCH (20:52)
[2019-01-17] MEDS: HYDROCODONE/ACETAMOPHEN 5/325MG TAB PO PRN ×4 (00:02→20:44)
[2019-01-17] MEDS: HEPARIN SODIUM/DEXTROSE 25,000 UNITS/500 ML BAG IV SCH (02:05)
[2019-01-17] MEDS: HYDROmorphone INJ 0.5 MG/0.5 ML SYR IV PRN ×3 (03:56→18:14)
[2019-01-17] MEDS: LEVOTHYROXINE SODIUM 100 MCG TABLET PO SCH (05:52)
[2019-01-17 07:11] LABS: Hematocrit (blood only) 24.9 % (37-47); Hemoglobin 7.9 g/dL (12.0-16.0)
[2019-01-17 07:37] LABS: INR 2.6 (0.9-1.1); Partial Thromboplastin Ratio 2.8; Prothrombin Time 24.5 Seconds (9.0-12.0)
[2019-01-17 07:42] LABS: Partial Thromboplastin Time 74.7 Seconds (21.0-31.0)
[2019-01-17 07:43] LABS: Creatinine Clr Calc Pharmacy 41.7 ml/min; Est GFR (African American) 59.1
[2019-01-17] MEDS: ASCORBIC ACID 500 MG TAB PO SCH (09:32)
[2019-01-17] MEDS: ROPINIROLE HCL 1 MG TABLET PO SCH ×3 (09:32→20:45)
[2019-01-17] MEDS: FOLIC ACID 1 MG TAB PO SCH (09:32)
[2019-01-17] MEDS: AMITRIPTYLINE HCL 25 MG TAB PO SCH ×2 (09:32→20:45)
[2019-01-17] MEDS: METOPROLOL TARTRATE 25 MG TAB PO SCH ×2 (09:32→20:45)
[2019-01-17] MEDS: FERROUS SULFATE 325 MG TAB PO SCH (09:33)
[2019-01-17] MEDS: THIAMINE HCL 50 MG TABLET PO SCH (09:33)
[2019-01-17] MEDS: MULTIVITAMIN TAB PO SCH (09:33)
[2019-01-17] MEDS: POTASSIUM CHLORIDE 10 MEQ TABCR PO SCH (09:33)
[2019-01-17] MEDS: FUROSEMIDE 40 MG TAB PO SCH (09:33)
[2019-01-17] MEDS: DOCUSATE SODIUM 100 MG CAP PO SCH ×2 (09:34→20:45)
[2019-01-17] MEDS: INSULIN GLARGINE SOLOSTAR 100 UNITS/ML 3 ML PEN SQ SCH (09:34)
[2019-01-17] MEDS: INSULIN ASPART 100 UNITS/ML 3 ML PEN SC SCH ×4 (09:35→20:45)
--- NOTE | 2019-01-17 09:42 | Cardiology Progress Note ---
Date of Service January 17, 2019 Assessment & Plan (1) H/O mitral valve replacement with mechanical valve: Given her history of cerebrovascular disease with past TIA/stroke symptoms, her goal INR as an outpatient is typically 3-3.5 rather than the 2.5-3.5 range typically considered for mechanical mitral valve prosthesis. Her INR today however is 2.6, and given the risk of postoperative bleeding, I think it is most prudent to discontinue her heparin, and allow her INR to trend toward goal without further bridge therapy. She is not on antiplatelet therapy due to the significant hemarthrosis that occurred after her left knee replacement in September,. (2) Atrial fibrillation: Continue metoprolol 25 mg p.o. twice daily. Continue Coumadin as noted above. (3) Anemia: Acute on chronic anemia. No significant postoperative knee effusion appreciated. Continue oral ascorbic acid and Feosol supplementation. (4) Status post total right knee replacement: Continue physical therapy as tolerated. Stable from my perspective to be transferred off of telemetry. Subjective Chief complaint: Postoperative follow-up, history of rheumatic heart disease, mechanical mitral valve replacement, chronic atrial fibrillation Subjective: Patient is comfortable. She is in good spirits. Heparin was infusing at the time of my assessment. Her operative knee reveals minimal swelling. Telemetry revealed atrial fibrillation with ventricular rate in the range of 100 bpm while finishing her a.m. meal, stable compared to usual baseline. Review of Systems Review of Systems: All systems reviewed & are unremarkable except as noted in HPI & below Physical Exam Physical Exam: Temp Pulse Resp BP Pulse Ox 37 C 92 H 16 115/67 100 01/17/19 07:17 01/17/19 07:17 01/17/19 07:17 01/17/19 07:17 01/17/19 07:17 Constitutional: WD/WN, vitals as above Respiratory: normal respiratory effort, lungs clear to auscultation Cardiovascular: Rate/Rhythm: + irregularly irregular Vessels: no JVD Extremities: + edema (Mild swelling at the level of the knees bilaterally) Mechanical mitral valve heart sounds noted Neurologic: PERRL, EOMI, accommodation nl, no face palsy, no dysarthria Results & Data Vital Signs (Past 12 Hours) Vital Signs Temp Pulse Pulse Resp BP Pulse Ox 01/17/19 07:17 37 C 92 H 16 115/67 100 01/17/19 04:24 37.3 C 98 H 18 116/65 95 01/17/19 03:04 37.0 C 71 19 116/65 98 01/16/19 23:00 37.2 C 81 68 18 111/65 98 Laboratory Results INR 2.6 Hemoglobin 7.9 (1) Atrial fibrillation Atrial fibrillation type: unspecified Qualified Code(s): I48.91 - Unspecified atrial fibrillation
[2019-01-17] MEDS ORDERED: SODIUM CHLORIDE 0.9% 250 ML IV PRN (10:39)
[2019-01-17] MEDS ORDERED: METOPROLOL TARTRATE 1 MG/ML VIAL IV PRN (10:40)
--- NOTE | 2019-01-17 10:41 | Hospitalist Progress Note ---
Date of Service January 17, 2019 Assessment & Plan (1) Knee pain: S/P RT KNEE REPLACEMENT : due to severe DJD post op pain has improved CT of knee showed normal post op effusion appreciate input form Ortho cont PT/OT (2) Mechanical heart valve present: hx of Rheumatic valve disease /sp mechanical mitral valve repair IV heparin bridge D/bita today to prevent bleeding complication INR 2.6 cont Coumadin with goal INR 3-3.5 given mechanical valve cardiology following appreciate input no acute cardiac issues noted ACUTE BLOOD LOSS ANEMIA : Hb drop noted 7.9 today possible due to post op status /acute blood loss rapid Afib RVR/HR elevated 137 noted with activity similar symptom noted in prior L TKA D/w Cardiology -ordered for 1 unit of PRBC to be transfused IV heparin D/bita to reduce risk of bleeding recent CT of knee showed no evidence of hematoma (3) Diabetes type 2, controlled: on sliding scale insulin (4) Hypothyroidism: cont levothyroxine DVT PROPHYLAXIS : Coumadin DISPOSITION : cont tele monitoring for Afib RVR Plan is to discharge home with home PT Subjective rt knee pain improved has minimum swelling denies of any complain of SOB , palpitation no fever or chills Pt noted HR in 130's /Chronic Afib with ambulation D/w cardiology , pt developed tachyarrythmia with anemia /HB < 8 ordered for 1 unit of PRBC transfusion monitor in telemetry Physical Exam Constitutional: WD/WN, vitals as above no acute distress Eyes: PERRL, conjunctivae normal, anicteric sclerae ENMT: external ear and nose normal, oropharynx normal Neck: trachea midline, no thyromegaly Respiratory: normal respiratory effort, lungs clear to auscultation Cardiovascular: RRR, no murmur, no edema Gastrointestinal (Abdomen): normal bowel sounds, soft, nontender, no hepatosplenomegaly Musculoskeletal: Extremities: + joint enlargement (s/p rt knee surgery .no active bleeding or swelling noted ) Skin: no rashes, warm and dry Neurologic: PERRL, EOMI, accommodation nl, no face palsy, no dysarthria Psychiatric: A+Ox3, euthymic affect Results & Data Vital Signs (Past 12 Hours) Vital Signs Temp Pulse Pulse Resp BP Pulse Ox 01/17/19 07:17 37 C 92 H 16 115/67 100 01/17/19 04:24 37.3 C 98 H 18 116/65 95 01/17/19 03:04 37.0 C 71 19 116/65 98 01/16/19 23:00 37.2 C 81 68 18 111/65 98 (1) Diabetes type 2, controlled Diabetes mellitus complication status: without complication Diabetes mellitus director long term care insulin use: without director long term care use Qualified Code(s): E11.9 - Type 2 diabetes mellitus without complications (2) Knee pain Chronicity: chronic Laterality: right Qualified Code(s): M25.561 - Pain in right knee; G89.29 - Other chronic pain
--- NOTE | 2019-01-17 10:43 | Orthopedic Progress Note ---
Date of Service January 17, 2019 Assessment & Plan (1) Status post total right knee replacement: She is now postop day 4 from her right total knee arthroplasty. We are awaiting her INR levels to come up to a target of 3.0-3.5 for her mechanical heart valve. She is on bridge therapy with IV heparin. INR 2.6 today. H&H is stable at 7.9/24.9 (7.8/24.9 yesterday). Hopefully her INR will come up to target levels and she can be discharged tomorrow. Subjective She is doing very well this morning. She is ambulating in the hallway currently with minimal pain. She is in good spirits. She denies any dizziness or lightheadedness. Knee pain is well controlled. Physical Exam Physical Exam: Right knee shows moderate diffuse swelling around the knee with some ecchymosis. Dressing is in place. No active drainage. No evidence of infection. Results & Data Vital Signs (Past 12 Hours) Vital Signs Temp Pulse Pulse Resp BP Pulse Ox 01/17/19 07:17 37 C 92 H 16 115/67 100 01/17/19 04:24 37.3 C 98 H 18 116/65 95 01/17/19 03:04 37.0 C 71 19 116/65 98 01/16/19 23:00 37.2 C 81 68 18 111/65 98
[2019-01-17] MEDS: WARFARIN SOD 7.5 MG TAB PO SCH (16:25)
[2019-01-17] MEDS: ROSUVASTATIN CALCIUM 10 MG TAB PO SCH (20:45)
[2019-01-17] MEDS: PANTOprazole 40 MG TAB PO SCH (20:45)
[2019-01-17] MEDS: SENNA 8.6 MG TAB PO SCH (20:45)
[2019-01-18] MEDS: HYDROmorphone INJ 0.5 MG/0.5 ML SYR IV PRN ×3 (02:30→20:06)
[2019-01-18] MEDS: HYDROCODONE/ACETAMOPHEN 5/325MG TAB PO PRN ×3 (06:16→23:22)
[2019-01-18] MEDS: LEVOTHYROXINE SODIUM 100 MCG TABLET PO SCH (06:16)
[2019-01-18 07:51] LABS: INR 3.4 (0.9-1.1); Prothrombin Time 32.1 Seconds (9.0-12.0)
[2019-01-18 07:56] LABS: Hematocrit (blood only) 26.9 % (37-47); Hemoglobin 8.5 g/dL (12.0-16.0)
[2019-01-18] MEDS: ROPINIROLE HCL 1 MG TABLET PO SCH ×3 (09:15→20:10)
[2019-01-18] MEDS: ASCORBIC ACID 500 MG TAB PO SCH (09:15)
[2019-01-18] MEDS: METOPROLOL TARTRATE 25 MG TAB PO SCH ×2 (09:15→20:09)
[2019-01-18] MEDS: THIAMINE HCL 50 MG TABLET PO SCH (09:16)
[2019-01-18] MEDS: FUROSEMIDE 40 MG TAB PO SCH (09:16)
[2019-01-18] MEDS: AMITRIPTYLINE HCL 25 MG TAB PO SCH ×2 (09:16→20:10)
[2019-01-18] MEDS: FOLIC ACID 1 MG TAB PO SCH (09:16)
[2019-01-18] MEDS: FERROUS SULFATE 325 MG TAB PO SCH (09:16)
[2019-01-18] MEDS: POTASSIUM CHLORIDE 10 MEQ TABCR PO SCH (09:16)
[2019-01-18] MEDS: MULTIVITAMIN TAB PO SCH (09:16)
[2019-01-18] MEDS: INSULIN GLARGINE SOLOSTAR 100 UNITS/ML 3 ML PEN SQ SCH (09:17)
[2019-01-18] MEDS: DOCUSATE SODIUM 100 MG CAP PO SCH ×2 (09:19→20:08)
[2019-01-18] MEDS: INSULIN ASPART 100 UNITS/ML 3 ML PEN SC SCH ×4 (09:20→20:15)
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
--- NOTE | 2019-01-18 14:00 | Cardiology Progress Note ---
Date of Service January 18, 2019 Assessment & Plan (1) H/O mitral valve replacement with mechanical valve: (2) Atrial fibrillation: (3) Anemia: INR 3.4 today. Coumadin dose reduced from 7.5 to 5 mg. She has been tolerating physical therapy well. Based on my observations from past hospital stays, her atrial fibrillation rate does tend to run a little bit high in the range of 90 to 110 bpm. She feels comfortable with this. We will continue the same dose of metoprolol. Acute on chronic blood loss anemia noted, hemoglobin improved to 8.5 compared to 7.9 yesterday received 1 unit of packed red blood cells. Continue to increase activity as tolerated. Subjective Chief complaint: Follow-up history of chronic atrial fibrillation, mechanical mitral valve Subjective: Patient feeling well. She tolerated physical therapy well today. Telemetry reveals atrial fibrillation in the range of 90 to 110 bpm which is unchanged compared to her typical baseline. Review of Systems Review of Systems: All systems reviewed & are unremarkable except as noted in HPI & below Physical Exam Physical Exam: Temp Pulse Resp BP Pulse Ox 36.9 C 91 H 18 123/66 96 01/18/19 11:59 01/18/19 11:59 01/18/19 11:59 01/18/19 11:59 01/18/19 11:59 Constitutional: WD/WN, vitals as above Respiratory: normal respiratory effort, lungs clear to auscultation Cardiovascular: Rate/Rhythm: + irregularly irregular crisp prosthetic heart sounds Neurologic: PERRL, EOMI, accommodation nl, no face palsy, no dysarthria Results & Data Vital Signs (Past 12 Hours) Vital Signs Temp Pulse Resp BP BP Pulse Ox 01/18/19 11:59 36.9 C 91 H 18 123/66 96 01/18/19 07:49 37.1 C 108 H 18 136/57 L 94 01/18/19 03:23 36.6 C 92 H 20 127/74 96 (1) Atrial fibrillation Atrial fibrillation type: unspecified Qualified Code(s): I48.91 - Unspecified atrial fibrillation
--- NOTE | 2019-01-18 14:21 | Hospitalist Progress Note ---
Date of Service January 18, 2019 Assessment & Plan (1) Knee pain: S/P RT KNEE REPLACEMENT : due to severe DJD post op pain has improved CT of knee showed normal post op effusion appreciate input form Ortho cont PT/OT (2) Mechanical heart valve present: hx of Rheumatic valve disease /sp mechanical mitral valve repair was on IV heparin bridge D/bita tto prevent bleeding complication when INR 2.6 INR 3.4 today Coumadin dose reduced to 5 mg daily ( was on 7.5 mg daily ) cont Coumadin with goal INR 3-3.5 given mechanical valve cardiology following appreciate input ACUTE BLOOD LOSS ANEMIA : Hb improved 7.9-> 8.2 /after 1 unit PRBC tx follow H&H possible due to post op status /acute blood loss recent CT of knee showed no evidence of hematoma (3) Diabetes type 2, controlled: on sliding scale insulin (4) Hypothyroidism: cont levothyroxine DVT PROPHYLAXIS : Coumadin DISPOSITION : cont tele monitoring for Afib RVR Plan is to discharge home with home PT Subjective has minimum pain on rt knee no swelling no complain of cough , sob no palpitation no fever or chills Physical Exam Constitutional: WD/WN, vitals as above no acute distress Eyes: PERRL, conjunctivae normal, anicteric sclerae ENMT: external ear and nose normal, oropharynx normal Neck: trachea midline, no thyromegaly Respiratory: normal respiratory effort, lungs clear to auscultation Cardiovascular: RRR, no murmur, no edema Gastrointestinal (Abdomen): normal bowel sounds, soft, nontender, no hepatosplenomegaly Musculoskeletal: Extremities: + joint enlargement (s/p rt knee surgery .no active bleeding or swelling noted ) Skin: no rashes, warm and dry Neurologic: PERRL, EOMI, accommodation nl, no face palsy, no dysarthria Psychiatric: A+Ox3, euthymic affect Results & Data Vital Signs (Past 12 Hours) Vital Signs Temp Pulse Resp BP BP Pulse Ox 01/18/19 11:59 36.9 C 91 H 18 123/66 96 01/18/19 07:49 37.1 C 108 H 18 136/57 L 94 01/18/19 03:23 36.6 C 92 H 20 127/74 96 (1) Knee pain Chronicity: chronic Laterality: right Qualified Code(s): M25.561 - Pain in right knee; G89.29 - Other chronic pain (2) Diabetes type 2, controlled Diabetes mellitus intermodal dispatcher insulin use: without intermodal dispatcher use Diabetes mellitus complication status: without complication Qualified Code(s): E11.9 - Type 2 diabetes mellitus without complications
[2019-01-18] MEDS ORDERED: WARFARIN SOD 5 MG TAB PO SCH (16:00)
[2019-01-18] MEDS: SENNA 8.6 MG TAB PO SCH (20:08)
[2019-01-18] MEDS: ROSUVASTATIN CALCIUM 10 MG TAB PO SCH (20:09)
[2019-01-18] MEDS: PANTOprazole 40 MG TAB PO SCH (20:10)
[2019-01-19] MEDS: LEVOTHYROXINE SODIUM 100 MCG TABLET PO SCH (05:35)
[2019-01-19] MEDS: HYDROmorphone INJ 0.5 MG/0.5 ML SYR IV PRN ×2 (05:35→12:12)
[2019-01-19 07:00] LABS: Hemoglobin 9.2 g/dL (12.0-16.0)
--- NOTE | 2019-01-19 07:15 | Orthopedic Progress Note ---
Date of Service January 19, 2019 Assessment & Plan (1) Status post total right knee replacement: POD #6 Right TKA PT/ OT DVT proph- Coumadin goal 3.0-3.5 D/C planning- Home w HH when medically stable per cardiology A.m. labs pending Subjective Post Operative Progress Note Patient seen sitting up in bed, comfortable, denies complaints, pain well controlled, no acute issues. Denies fevers, chills, nausea, vomiting, diarrhea, chest pain or shortness of breath Review of Systems Review of Systems: All systems reviewed & are unremarkable except as noted in HPI & below Constitutional: as per Subjective / HPI Physical Exam Physical Exam: RLE NVSI +EHL/FHL/TA/GS SILT grossly, +2 DP pulse, compartments soft NT, dressing cdi. Constitutional: WD/WN, vitals as above Results & Data Vital Signs (Past 12 Hours) Vital Signs Temp Pulse Pulse Resp BP BP Pulse Ox 01/19/19 03:27 36.5 C 87 19 110/56 L 98 01/19/19 00:21 87 01/18/19 23:05 36.9 C 73 20 115/66 96 01/18/19 19:35 36.7 C 108 H 18 144/70 H 99 Laboratory Results 01/19/19 01/19/19 01/18/19 Range/Units 06:37 06:37 20:15 Hgb 9.2 L (12.0-16.0) g/dL Hct 29.0 L (37-47) % PT Pending (9.0-12.0) Seconds INR Pending (0.9-1.1) POC Glucose 135 H (70-99) Crossmatch 01/18/19 01/18/19 01/18/19 Range/Units 16:51 11:40 11:39 Hgb (12.0-16.0) g/dL Hct (37-47) % PT (9.0-12.0) Seconds INR (0.9-1.1) POC Glucose 113 H 75 67 L* (70-99) Crossmatch 01/18/19 01/18/19 01/18/19 Range/Units 07:42 07:24 07:24 Hgb 8.5 L (12.0-16.0) g/dL Hct 26.9 L (37-47) % PT 32.1 H (9.0-12.0) Seconds INR 3.4 H (0.9-1.1) POC Glucose 116 H (70-99) Crossmatch 01/14/19 Range/Units 22:10 Hgb (12.0-16.0) g/dL Hct (37-47) % PT (9.0-12.0) Seconds INR (0.9-1.1) POC Glucose (70-99) Crossmatch See Detail
[2019-01-19 07:21] LABS: INR 3.8 (0.9-1.1)
[2019-01-19] MEDS: ROPINIROLE HCL 1 MG TABLET PO SCH ×3 (08:34→20:29)
[2019-01-19] MEDS: DOCUSATE SODIUM 100 MG CAP PO SCH ×2 (08:34→20:28)
[2019-01-19] MEDS: METOPROLOL TARTRATE 25 MG TAB PO SCH ×2 (08:35→20:28)
[2019-01-19] MEDS: ASCORBIC ACID 500 MG TAB PO SCH (08:36)
[2019-01-19] MEDS: THIAMINE HCL 50 MG TABLET PO SCH (08:36)
[2019-01-19] MEDS: POTASSIUM CHLORIDE 10 MEQ TABCR PO SCH (08:36)
[2019-01-19] MEDS: FUROSEMIDE 40 MG TAB PO SCH (08:36)
[2019-01-19] MEDS: AMITRIPTYLINE HCL 25 MG TAB PO SCH ×2 (08:37→20:27)
[2019-01-19] MEDS: MULTIVITAMIN TAB PO SCH (08:37)
[2019-01-19] MEDS: FOLIC ACID 1 MG TAB PO SCH (08:37)
[2019-01-19] MEDS: FERROUS SULFATE 325 MG TAB PO SCH (08:37)
[2019-01-19] MEDS: INSULIN GLARGINE SOLOSTAR 100 UNITS/ML 3 ML PEN SQ SCH (08:39)
[2019-01-19] MEDS: INSULIN ASPART 100 UNITS/ML 3 ML PEN SC SCH ×4 (08:39→21:50)
[2019-01-19] MEDS: HYDROCODONE/ACETAMOPHEN 5/325MG TAB PO PRN ×3 (09:40→20:56)
[2019-01-19] MEDS ORDERED: WARFARIN SOD 2.5 MG TAB PO ONE (10:50)
--- NOTE | 2019-01-19 10:54 | Cardiology Progress Note ---
Date of Service January 19, 2019 Assessment & Plan (1) H/O mitral valve replacement with mechanical valve: (2) Atrial fibrillation: (3) Status post total right knee replacement: Hgb stable at 9.2 today , increased from 8.5. INR 3.8, goal 3-3.5 Received 5 mg of coumadin yesterday. I discussed holding her coumadin with her today, however, pt is very concerned about her INR getting below goal, she state at home she would usually just take 2.5 mg in this setting. We agreed to proceed with coumadin 2.5 mg today. Then resume her usual schedul of 5 mg alternating daily with 7.5 mg , with plan for 5 mg tomorrow. No antiplatelet therapy in addition to coumadin due to risk of bleeding. Needs home physical therapy and visiting nurse to obtain INR levels , would check INR on , 01/22. Case discussed with Dr Mcguire. Subjective CC: follow up history of mechanical MVR, chronic AF. Subjective: Patient feeling well. Denies complaints. Review of Systems Review of Systems: All systems reviewed & are unremarkable except as noted in HPI & below Physical Exam Physical Exam: Temp Pulse Resp BP Pulse Ox 37.0 C 76 18 116/65 96 01/19/19 07:41 01/19/19 07:41 01/19/19 07:41 01/19/19 07:41 01/19/19 07:41 Constitutional: WD/WN, vitals as above Respiratory: normal respiratory effort, lungs clear to auscultation Cardiovascular: Rate/Rhythm: + irregularly irregular Vessels: no JVD Musculoskeletal: R knee with mild stable post operative swelling. Neurologic: PERRL, EOMI, accommodation nl, no face palsy, no dysarthria Results & Data Vital Signs (Past 12 Hours) Vital Signs Temp Pulse Pulse Resp BP BP Pulse Ox 01/19/19 07:41 37.0 C 76 18 116/65 96 01/19/19 03:27 36.5 C 87 19 110/56 L 98 01/19/19 00:21 87 01/18/19 23:05 36.9 C 73 20 115/66 96 (1) Atrial fibrillation Atrial fibrillation type: unspecified Qualified Code(s): I48.91 - Unspecified atrial fibrillation
--- NOTE | 2019-01-19 15:15 | Hospitalist Progress Note ---
Date of Service January 19, 2019 Assessment & Plan (1) Knee pain: S/P RT KNEE REPLACEMENT : due to severe DJD post op pain has improved CT of knee showed normal post op effusion appreciate input form Ortho stable to be discharged home with home PT (2) Mechanical heart valve present: hx of Rheumatic valve disease /sp mechanical mitral valve repair was on IV heparin bridge D/bita tto prevent bleeding complication when INR 2.6 INR 3.8today Coumadin dose reduced to 2.5 mg daily ( was on 7.5 mg daily ) cont Coumadin with goal INR 3-3.5 given mechanical valve cardiology following appreciate input ACUTE BLOOD LOSS ANEMIA : possible due to post op status /acute blood loss recent CT of knee showed no evidence of hematoma Hb improved 7.9-> 8.2- 9 /after 1 unit PRBC tx follow H&H (3) Diabetes type 2, controlled: on sliding scale insulin (4) Hypothyroidism: cont levothyroxine DVT PROPHYLAXIS : Coumadin DISPOSITION : cont tele monitoring for Afib RVR Plan is to discharge home with home PT Subjective offers no complain feels fine rt knee pain improved Physical Exam Constitutional: WD/WN, vitals as above no acute distress Eyes: PERRL, conjunctivae normal, anicteric sclerae ENMT: external ear and nose normal, oropharynx normal Neck: trachea midline, no thyromegaly Respiratory: normal respiratory effort, lungs clear to auscultation Cardiovascular: RRR, no murmur, no edema Gastrointestinal (Abdomen): normal bowel sounds, soft, nontender, no hepatosplenomegaly Musculoskeletal: Extremities: + joint enlargement (s/p rt knee surgery .no active bleeding or swelling noted ) Skin: no rashes, warm and dry Neurologic: PERRL, EOMI, accommodation nl, no face palsy, no dysarthria Psychiatric: A+Ox3, euthymic affect Results & Data Vital Signs (Past 12 Hours) Vital Signs Temp Pulse Resp BP BP Pulse Ox 01/19/19 14:43 37.3 C 84 18 150/78 H 95 01/19/19 12:00 36.8 C 65 18 128/69 99 01/19/19 07:41 37.0 C 76 18 116/65 96 01/19/19 03:27 36.5 C 87 19 110/56 L 98 (1) Diabetes type 2, controlled Diabetes mellitus complication status: without complication 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
[2019-01-19] MEDS: ROSUVASTATIN CALCIUM 10 MG TAB PO SCH (20:28)
[2019-01-19] MEDS: SENNA 8.6 MG TAB PO SCH (20:29)
[2019-01-19] MEDS: PANTOprazole 40 MG TAB PO SCH (20:29)
[2019-01-20] MEDS: HYDROmorphone INJ 0.5 MG/0.5 ML SYR IV PRN ×3 (01:32→15:49)
[2019-01-20] MEDS: HYDROCODONE/ACETAMOPHEN 5/325MG TAB PO PRN ×3 (03:27→20:47)
[2019-01-20] MEDS: LEVOTHYROXINE SODIUM 100 MCG TABLET PO SCH (06:04)
[2019-01-20 07:16] LABS: Hematocrit (blood only) 30.8 % (37-47); Hemoglobin 9.6 g/dL (12.0-16.0)
[2019-01-20 07:26] LABS: INR 3.4 (0.9-1.1); Prothrombin Time 31.8 Seconds (9.0-12.0)
[2019-01-20 07:58] LABS: Creatinine Clr Calc Pharmacy 36.5 ml/min; Est GFR (African American) 57.2; Est GFR (Non-African American) 49.4
[2019-01-20] MEDS: INSULIN ASPART 100 UNITS/ML 3 ML PEN SC SCH ×4 (08:07→20:57)
[2019-01-20] MEDS: MULTIVITAMIN TAB PO SCH (08:13)
[2019-01-20] MEDS: DOCUSATE SODIUM 100 MG CAP PO SCH ×2 (08:14→20:45)
[2019-01-20] MEDS: THIAMINE HCL 50 MG TABLET PO SCH (08:14)
[2019-01-20] MEDS: FERROUS SULFATE 325 MG TAB PO SCH (08:14)
[2019-01-20] MEDS: INSULIN GLARGINE SOLOSTAR 100 UNITS/ML 3 ML PEN SQ SCH (08:14)
[2019-01-20] MEDS: FOLIC ACID 1 MG TAB PO SCH (08:14)
[2019-01-20] MEDS: POTASSIUM CHLORIDE 10 MEQ TABCR PO SCH (08:15)
[2019-01-20] MEDS: ASCORBIC ACID 500 MG TAB PO SCH (08:15)
[2019-01-20] MEDS: AMITRIPTYLINE HCL 25 MG TAB PO SCH ×2 (08:15→20:44)
[2019-01-20] MEDS: ROPINIROLE HCL 1 MG TABLET PO SCH ×3 (08:15→20:46)
[2019-01-20] MEDS: FUROSEMIDE 40 MG TAB PO SCH (08:16)
[2019-01-20] MEDS: METOPROLOL TARTRATE 25 MG TAB PO SCH ×2 (08:16→20:45)
--- NOTE | 2019-01-20 09:24 | Orthopedic Progress Note ---
Date of Service January 20, 2019 Assessment & Plan (1) Status post total right knee replacement: POD #7 Right TKA PT/ OT DVT proph- Coumadin goal 3.0-3.5 D/C planning- Home w HH when medically stable per cardiology A.m. labs as above DC planning per medical team Subjective Post Operative Progress Note Patient seen sitting up in bed, comfortable, denies complaints, pain well controlled, no acute issues. Denies fevers, chills, nausea, vomiting, shortness of breath and chest pain. Review of Systems Review of Systems: All systems reviewed & are unremarkable except as noted in HPI & below Constitutional: as per Subjective / HPI Physical Exam Physical Exam: RLE NVSI +EHL/FHL/TA/GS SILT grossly, +2 DP pulse, compartments soft NT, dressing cdi. Constitutional: WD/WN, vitals as above Results & Data Vital Signs (Past 12 Hours) Vital Signs Temp Pulse Pulse Resp BP BP Pulse Ox 01/20/19 07:25 85 01/20/19 07:06 36.7 C 86 18 126/63 99 01/20/19 04:00 37.0 C 85 20 143/70 H 97 01/20/19 00:22 106 H 01/19/19 22:33 37.0 C 96 H 18 132/65 90 Laboratory Results 01/20/19 01/20/19 01/20/19 Range/Units 07:29 06:41 06:41 Hgb 9.6 L (12.0-16.0) g/dL Hct 30.8 L (37-47) % PT (9.0-12.0) Seconds INR (0.9-1.1) Creatinine 1.16 (0.6-1.2) mg/dl Est Cr Clr Drug Dosing 36.5 ml/min Est GFR ( Amer) 57.2 Est GFR (Non-Af Amer) 49.4 POC Glucose 107 H (70-99) 01/20/19 01/19/19 01/19/19 Range/Units 06:41 20:38 16:14 Hgb (12.0-16.0) g/dL Hct (37-47) % PT 31.8 H (9.0-12.0) Seconds INR 3.4 H (0.9-1.1) Creatinine (0.6-1.2) mg/dl Est Cr Clr Drug Dosing ml/min Est GFR ( Amer) Est GFR (Non-Af Amer) POC Glucose 85 131 H (70-99) 01/19/19 Range/Units 11:50 Hgb (12.0-16.0) g/dL Hct (37-47) % PT (9.0-12.0) Seconds INR (0.9-1.1) Creatinine (0.6-1.2) mg/dl Est Cr Clr Drug Dosing ml/min Est GFR ( Amer) Est GFR (Non-Af Amer) POC Glucose 121 H (70-99)
--- NOTE | 2019-01-20 14:20 | Cardiology Progress Note ---
Date of Service January 20, 2019 Assessment & Plan (1) H/O mitral valve replacement with mechanical valve: (2) Atrial fibrillation: (3) Status post total right knee replacement: Hemoglobin today stable at 9.6. INR of 3.4 today is at goal which is 3-3.5 given her mechanical mitral valve and past stroke. Coumadin 5 mg today. Plan to resume prior to hospital Coumadin regimen of 5 mg alternating with 7 mg Stable from cardiology perspective for discharge home with home physical therapy, visiting nursing to draw INR levels. Subjective Chief complaint: Follow-up mechanical mitral valve, chronic atrial fibrillation Subjective: Patient comfortable in bed. Telemetry reveals ongoing atrial fibrillation, 90s at rest in the 100s with activity. Physical Exam Physical Exam: Temp Pulse Resp BP Pulse Ox 37.1 C 92 H 18 124/66 98 01/20/19 10:51 01/20/19 10:51 01/20/19 10:51 01/20/19 10:51 01/20/19 10:51 Constitutional: WD/WN, vitals as above Respiratory: normal respiratory effort, lungs clear to auscultation Cardiovascular: Rate/Rhythm: + irregularly irregular ([place] mechanical prosthetic heart sounds noted) Musculoskeletal: Mild postoperative edema, stable Neurologic: PERRL, EOMI, accommodation nl, no face palsy, no dysarthria Results & Data Vital Signs (Past 12 Hours) Vital Signs Temp Pulse Pulse Resp BP BP Pulse Ox 01/20/19 10:51 37.1 C 92 H 18 124/66 98 01/20/19 07:25 85 01/20/19 07:06 36.7 C 86 18 126/63 99 01/20/19 04:00 37.0 C 85 20 143/70 H 97 (1) Atrial fibrillation Atrial fibrillation type: unspecified Qualified Code(s): I48.91 - Unspecified atrial fibrillation
[2019-01-20] MEDS ORDERED: WARFARIN SOD 5 MG TAB PO SCH (16:00)
--- NOTE | 2019-01-20 18:17 | Hospitalist Progress Note ---
Date of Service January 20, 2019 Assessment & Plan (1) Knee pain: S/P RT KNEE REPLACEMENT : POD # 7 post op pain has improved CT of knee showed normal post op effusion appreciate input form Ortho stable to be discharged home with home PT (2) Mechanical heart valve present: hx of Rheumatic valve disease /sp mechanical mitral valve repair was on IV heparin bridge D/bita tto prevent bleeding complication when INR 2.6 INR 3.4 pt will cont with home Coumadin dose 5 mg with 7.5 alternate as per Coumadin clinic cont Coumadin with goal INR 3-3.5 given mechanical valve cardiology following appreciate input ACUTE BLOOD LOSS ANEMIA : resolved possible due to post op status /acute blood loss recent CT of knee showed no evidence of hematoma Hb improved 7.9-> 8.2- 9-> 9.6 /after 1 unit PRBC tx f (3) Diabetes type 2, controlled: on sliding scale insulin (4) Hypothyroidism: cont levothyroxine DVT PROPHYLAXIS : Coumadin DISPOSITION : cont tele monitoring for Afib RVR Plan is to discharge home with home PT possible tomorrow Subjective offers no new complain rt knee pain improving no fever or chills Physical Exam Constitutional: WD/WN, vitals as above no acute distress Eyes: PERRL, conjunctivae normal, anicteric sclerae ENMT: external ear and nose normal, oropharynx normal Neck: trachea midline, no thyromegaly Respiratory: normal respiratory effort, lungs clear to auscultation Cardiovascular: RRR, no murmur, no edema Gastrointestinal (Abdomen): normal bowel sounds, soft, nontender, no hepatosplenomegaly Musculoskeletal: Extremities: + joint enlargement (s/p rt knee surgery .no active bleeding or swelling noted ) Skin: no rashes, warm and dry Neurologic: PERRL, EOMI, accommodation nl, no face palsy, no dysarthria Psychiatric: A+Ox3, euthymic affect Results & Data Vital Signs (Past 12 Hours) Vital Signs Temp Pulse Pulse Resp BP BP Pulse Ox 01/20/19 15:23 37.1 C 98 H 18 129/58 L 93 01/20/19 10:51 37.1 C 92 H 18 124/66 98 01/20/19 07:25 85 01/20/19 07:06 36.7 C 86 18 126/63 99 (1) Knee pain Chronicity: chronic Laterality: right Qualified Code(s): M25.561 - Pain in right knee; G89.29 - Other chronic pain (2) Diabetes type 2, controlled 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
[2019-01-20] MEDS: ROSUVASTATIN CALCIUM 10 MG TAB PO SCH (20:44)
[2019-01-20] MEDS: PANTOprazole 40 MG TAB PO SCH (20:46)
[2019-01-20] MEDS: SENNA 8.6 MG TAB PO SCH (20:46)
[2019-01-21] MEDS: HYDROmorphone INJ 0.5 MG/0.5 ML SYR IV PRN ×2 (00:39→07:35)
[2019-01-21] MEDS: HYDROCODONE/ACETAMOPHEN 5/325MG TAB PO PRN ×2 (04:19→11:03)
[2019-01-21] MEDS: LEVOTHYROXINE SODIUM 100 MCG TABLET PO SCH (06:22)
[2019-01-21 06:48] LABS: Hematocrit (blood only) 31.6 % (37-47); Hemoglobin 9.6 g/dL (12.0-16.0)
[2019-01-21 06:58] LABS: Prothrombin Time 28.1 Seconds (9.0-12.0)
[2019-01-21] MEDS: INSULIN ASPART 100 UNITS/ML 3 ML PEN SC SCH (07:42)
[2019-01-21] MEDS: AMITRIPTYLINE HCL 25 MG TAB PO SCH (07:43)
[2019-01-21] MEDS: DOCUSATE SODIUM 100 MG CAP PO SCH (07:43)
[2019-01-21] MEDS: MULTIVITAMIN TAB PO SCH (07:43)
[2019-01-21] MEDS: INSULIN GLARGINE SOLOSTAR 100 UNITS/ML 3 ML PEN SQ SCH (07:43)
[2019-01-21] MEDS: FUROSEMIDE 40 MG TAB PO SCH (07:44)
[2019-01-21] MEDS: POTASSIUM CHLORIDE 10 MEQ TABCR PO SCH (07:44)
[2019-01-21] MEDS: FOLIC ACID 1 MG TAB PO SCH (07:44)
[2019-01-21] MEDS: ROPINIROLE HCL 1 MG TABLET PO SCH (07:44)
[2019-01-21] MEDS: FERROUS SULFATE 325 MG TAB PO SCH (07:44)
[2019-01-21] MEDS: ASCORBIC ACID 500 MG TAB PO SCH (07:44)
[2019-01-21] MEDS: METOPROLOL TARTRATE 25 MG TAB PO SCH (07:44)
[2019-01-21] MEDS: THIAMINE HCL 50 MG TABLET PO SCH (07:45)
--- NOTE | 2019-01-21 08:19 | Orthopedic Progress Note ---
Date of Service January 21, 2019 Assessment & Plan (1) Status post total right knee replacement: POD #8 Right TKA PT/ OT DVT proph- Coumadin goal 3.0-3.5 D/C planning- Home w HH when medically stable per cardiology A.m. labs as above DC planning per medical team, orthopedically stable Subjective Post Operative Progress Note Patient seen sitting up in bed, comfortable, denies complaints, pain well controlled, no acute issues. Denies F/C/N/V/SOP/CP Review of Systems Review of Systems: All systems reviewed & are unremarkable except as noted in HPI & below Constitutional: as per Subjective / HPI Physical Exam Physical Exam: RLE NVSI +EHL/FHL/TA/GS SILT grossly, +2 DP pulse, compartments soft NT, incision cdi Constitutional: WD/WN, vitals as above Results & Data Vital Signs (Past 12 Hours) Vital Signs Temp Pulse Resp BP BP Pulse Ox 01/21/19 07:21 36.8 C 89 20 136/65 95 01/21/19 02:59 37 C 108 H 16 129/71 94 01/20/19 23:41 37.1 C 101 H 20 143/70 H 95 Laboratory Results 01/21/19 01/21/19 01/21/19 Range/Units 07:41 06:28 06:28 Hgb 9.6 L (12.0-16.0) g/dL Hct 31.6 L (37-47) % PT 28.1 H (9.0-12.0) Seconds INR 3.0 H (0.9-1.1) POC Glucose 119 H (70-99) 01/20/19 01/20/19 01/20/19 Range/Units 20:16 16:26 12:00 Hgb (12.0-16.0) g/dL Hct (37-47) % PT (9.0-12.0) Seconds INR (0.9-1.1) POC Glucose 130 H 117 H 117 H (70-99)
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
== END 2019-01-21 11:49 | disposition home health service (06) | DRG 470 ==
LOC: ASU 05:14 → 3E 10:42 → SUATTDRO 10:42 → 2N 12:32

== ENCOUNTER 2020-02-16 01:57 | Observation (INO) ==
[2020-02-16] MEDS ORDERED: NITROGLYCERIN SL 0.4 MG/TAB TAB SL STA (02:12)
[2020-02-16] MEDS ORDERED: fentaNYL citrate 100 MCG/2 ML VIAL IV STA ×2 (02:12→02:52)
--- NOTE | 2020-02-16 02:16 | Emergency Department Note ---
Impression & Plan Substernal chest pain, Elevated INR ED Provider Note Name: ALCIDES MAST Age: 64 Sex: F Arrives Via: Ambulance Informant: Patient, Chart ED Provider: Kalyan Miguel MD Chief Complaint: Chest Pain Impression: Substernal Chest Pain Elevated INR Medical Decision Makin yr old female with previous [place] 20 years ago as well as Mechanical mitral valve replaced 27 yrs ago arrives witha cute substernal chest pain radiating to left shoulder and upper back. No improvement with SLNTG x 2 and switched to Fentanyl with gradual relief. CXR unremarkable. EKG unremarkable. Initial trop negative. INR elevated above therapeutic range but no bleeding no maricruz cation for reversal at this time. However given degree of pain and radiation felt CTA chest indicated for further evaluation. There is some mild renal insufficiency which is new thus will given IV fluids though I feel CTA still necessary as benefits outweigh risks. Fortunately CT negative for dis section/pe/etc. By this time pain is subsided significantly and she is in no distress. With history will clearly need hospitalization for cardiac rule out. Hospitalist consulted for further management. Prior Medical Record and Triage/Nursing Notes reviewed by Me Additional history obtained from chart Differentials:Cardiac ischemia, aortic dissection, pulmonary embolism, pneumothorax, pneumonia, pericarditis, myocarditis, esophageal rupture, GERD, cholecystitis, pancreatitis, musculoskeletal, as well as other pathologies. Vital Signs: reviewed and remarkable for no significant abnormalities Interventions: fentanyl 50mcg IV x 2, SLNTG. ASA not given as states she can not have while on Coumadin. Labs:Reviewed and remarkable for mild cr bump Imaging: X ray results are stated below per my interpretation: Chest: 1 view: No infiltrate, no effusion, normal cardiac border. [facility] Radiologist interpretation reviewed by me: "CT CHEST W/WO Contrast: The pulmonary arterial tree is well-opacified with contrast. No pulmonary emboli are identified. The thoracic aorta is nondilated. There is no aneurysm or dissection. There are sternal wires from previous sternotomy and mitral valvuloplasty. There is severe cardiomegaly. No pericardial effusion is seen. No mediastinal lymphadenopathy or mass is identified. The lungs are well inflated and clear. No infiltrate or consolidation is seen. No pneumothorax or pleural effusion. Mild degenerative changes in the thoracic spine. No acute fracture or sub luxation. Radiologist: Perez Song MD" EKG:Per My Interpretation: Indication Chest Pain: Afib 78 bpm with incomplete RBBB, qtc 465. No Ischemia. Compared to EKG 12/31/19, no significant changes. Cardiac/Tele Monitoring: Cardiac Monitoring: An Order was placed for continuous cardiac monitoring. The monitor shows a rate of 70 with a afib rhythm. Consults:Dr Atul Perera Hospitalist Plan: Disposition:Hospitalization. Condition: Good Prescriptions:none PDMP: n/a History of Present Illness:64 yr old female with extensive PMH and cardiac history including mechanical mitral valve 27 yrs ago and [place] in 2000 arrives for evaluation of chest pain. Notes she was feeling well and this evening developed left chest pain. Radiates to left upper back and left shoulder. Associated without any other symptoms. Sharp in nature. Similar to previous [place]. Used SLNTG at home with mild improvement. Exertion doesn't make better nor worse. No trauma nor injuries. Denies syncope, sob, palpitations, nausea, vomiting, abdominal pain, fevers, chills, headache (chronic right baseline), back pain (besides upper back now), leg swelling, rashes, nor other symptoms. ROS: See above HPI for pertinent positives & negatives. A total of 10 systems reviewed and were otherwise negative. Past Medical History:See Below Past Surgical History:See Below Family History:See Below Social History:See Below Home Medications:See Below Allergies:See Below Vitals:Blood Pressure: 113/54, Pulse 72, RR 20, T 36.4C, O2 99% on RA Physical Exam: GENERAL: Patient is chronically unwell appearing and in mild distress. EYES: No scleral icterus, unremarkable pupils. ENT: Mucous membranes moist, no nasal congestion. NECK: No masses appreciated, nomeningismus, trachea is midline. RESPIRATORY: No dyspnea. Clear to auscultation and equal bilaterally. No wheeze, no rhonchi. CARDIOVASCULAR: Irregular.No murmurs, rubs, gallops appreciated. GASTROINTESTINAL: Abdomen soft, non-tender, no peritonitis.Bowel sounds positive.No masses appreciated. BACK: No midline tenderness, no CVA tenderness EXTREMITIES: Normal motion all extremities, no cyanosis, no edema. NEUROLOGIC: Alert and oriented, no acute motor or sensory deficits, no focal weakness, cranial nerves grossly intact. SKIN: No rash, no jaundice, no diaphoresis. PSYCH: Appropriate GCS: 15 ED Course: Times/Reassessments: gradually improving pain. Stated still had pain but in no distress. Post CT feeling much better. 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 migraine vs. stress related)-- plavix since discontinued Surgical History H/O radioactive iodine thyroid ablation H/O: hysterectomy History of cardiac cath 2000= NO STENTS History of colonoscopy History of tonsillectomy and adenoidectomy History of total left knee replacement Hx of appendectomy Hx of cholecystectomy Hx of mitral valve replacement 1993 (rheumatic valvular disease) Hx of tubal ligation Family History Uncle , of [place] in his 40s Coronary heart disease Social History Smoking Status: Never smoker Second Hand Exposure: No; Hx Alcohol Use: Yes Alcohol type: wine Hx Substance Use: No Preferred Language: Urdu Communication Ability: Effective Form Maker Required: No Beliefs That Will Affect Care: None marital status: Single Current Living Situation: Other Current Living Situation Comment: MOTHER current occupational status: disabled Feels Safe at Home: Yes Assistive Devices: Glasses and Walker Allergies Allergies Allergy/AdvReac Type Severity Reaction Status Date / Time hydroxyzine Allergy Severe DYSTONIA Verified 02/16/20 04:36 prochlorperazine Allergy Severe NUCHAL Verified 02/16/20 04:36 DYSTONIA promethazine Allergy Severe NUCHAL Verified 02/16/20 04:36 DYSTONIA oxycodone Allergy Intermediate Numbness Verified 02/16/20 04:36 PERRY Inhibitors AdvReac Intermediate COUGH Verified 02/16/20 04:36 lisinopril AdvReac Intermediate Cough Verified 02/16/20 04:36 metformin AdvReac Intermediate DIARRHEA Verified 02/16/20 04:36 parsley AdvReac Intermediate AGITATION Verified 02/16/20 04:36 tetracycline AdvReac Intermediate DYSPEPSIA Verified 02/16/20 04:36 NAUSEA MEDICINES Allergy Unknown SEE NOTE Uncoded 02/16/20 04:36 BELOW Home Meds Home Medications Medication Instructions Recorded Confirmed cholecalciferol (vitamin D3) 1,000 unit PO QAM 12/05/17 02/16/20 [Vitamin D3] nitroglycerin [Nitrostat] 0.4 mg SUBLINGUAL DIRECTED PRN 12/05/17 02/16/20 omeprazole 20 mg PO PM 12/05/17 02/16/20 rosuvastatin 10 mg PO QPM 12/05/17 02/16/20 furosemide 40 mg PO QAM 05/18/18 02/16/20 levothyroxine 100 mcg PO QAM 05/18/18 02/16/20 metoclopramide HCl [Reglan] 10 mg PO UD PRN 05/18/18 02/16/20 amitriptyline 50 mg PO BID 10/08/18 02/16/20 ropinirole 2 mg PO TID 10/08/18 02/16/20 warfarin 5 mg PO DAILY 10/22/18 02/16/20 acetaminophen [Tylenol Extra 500 mg PO Q6H PRN 12/31/19 02/16/20 Strength] lidocaine HCl 1 applic PO DIRECTED PRN 12/31/19 02/16/20 magnesium hydroxide [Milk of 5 ml PO DAILY PRN 12/31/19 02/16/20 Magnesia] spironolactone 12.5 mg PO DAILY 12/31/19 02/16/20 tramadol 50 mg PO TID PRN 12/31/19 02/16/20 Previous Rx's Medication Instructions Recorded folic acid 1 mg PO QAM #30 tab 05/21/18 thiamine HCl (vitamin B1) [Vitamin 50 mg PO QAM #30 tab 05/21/18 B-1] sennosides [Senokot] 17.2 mg PO HS PRN #28 tab 09/24/18 ascorbic acid (vitamin C) 500 mg PO DAILY #30 tab 10/08/18 ferrous sulfate 325 mg PO DAILY #30 tab 10/08/18 metoprolol tartrate 25 mg PO BID #60 tab 10/08/18 bisacodyl [Laxative (bisacodyl)] 10 mg OH DAILY PRN #28 ea 01/19/19 gabapentin 100 mg PO Q8H PRN #20 cap 12/31/19 Results & Data (ED) Vital Signs Vital Signs - 24 hr 02/16/20 02:00 02/16/20 02:30 02/16/20 03:00 Temperature 36.4 C L Temperature Source Oral Pulse Rate 79 78 80 Pulse Rate from SpO2 Sensor 79 80 Respiratory Rate 16 17 22 Respiratory Depth Normal Blood Pressure 133/69 134/63 133/62 Blood Pressure Mean 90 74 71 Pulse Oximetry 100 100 96 Oxygen Delivery Method Room Air Room Air Room Air Sepsis Recent Fever Within 48 Hours No Sepsis New/Unexplained Change in Mental Status N/A Sepsis Action Taken by Nursing No Action Required 02/16/20 04:01 02/16/20 04:30 02/16/20 05:00 Temperature Temperature Source Pulse Rate 72 72 67 Pulse Rate from SpO2 Sensor 74 74 68 Respiratory Rate 20 15 13 Respiratory Depth Blood Pressure 113/54 L 114/52 L 111/63 Blood Pressure Mean 67 74 80 Pulse Oximetry 99 97 97 Oxygen Delivery Method Room Air Room Air Room Air Sepsis Recent Fever Within 48 Hours Sepsis New/Unexplained Change in Mental Status Sepsis Action Taken by Nursing Laboratory Data Result diagrams: 02/16/20 02:08 02/16/20 02:08 Lab Results 02/16/20 02/16/20 02/16/20 Range/Units 02:08 02:08 02:08 WBC 7.70 (4.8-10.8) K/uL RBC 4.34 (4.2-5.4) M/uL Hgb 12.6 (12.0-16.0) g/dL Hct 38.5 (37-47) % MCV 88.7 (80-100) fL MCH 29.0 (25-34) pg MCHC 32.7 (32-36) g/dL RDW Std Deviation 46.5 H (36.4-46.3) fL RDW Coeff of Courtney 14.1 (11.5-14.5) % Plt Count 195 (130-400) K/uL MPV 11.1 H (7.4-10.4) fL Immature Gran % (Auto) 0.3 % Neut % (Auto) 71.2 % Lymph % (Auto) 17.5 % [place] % (Auto) 8.2 % Eos % (Auto) 2.7 % Baso % (Auto) 0.1 % Neut # (Auto) 5.48 (1.4-6.5) K/uL Lymph # (Auto) 1.35 (1.2-3.4) K/uL [place] # (Auto) 0.63 H (0.11-0.59) K/uL Eos # (Auto) 0.21 (0-0.5) K/uL Baso # (Auto) 0.01 (0-0.2) K/uL Immature Gran # (Auto) 0.02 (0.00-0.02) K/uL PT 47.8 H (9.0-12.0) Seconds INR 4.9 H (0.9-1.1) Sodium 137 (136-145) mmol/L Potassium 3.6 (3.5-5.1) mmol/L Chloride 99 (98-107) mmol/L Carbon Dioxide 34 H (21-32) mmol/L Anion Gap 4.0 (3-11) BUN 29 H (7-18) mg/dl Creatinine 1.65 H (0.6-1.2) mg/dl Est Cr Clr Drug Dosing 30.2 ml/min Est GFR ( Amer) 37.1 Est GFR (Non-Af Amer) 32.0 BUN/Creatinine Ratio 17.8 (10-20) Glucose 117 H (70-99) mg/dl Calcium 9.5 (8.5-10.1) mg/dl Troponin I < 0.015 (0-0.045) ng/ml SARS-CoV-2 Ag (Rapid) (Negative) 02/16/20 Range/Units Unknown WBC (4.8-10.8) K/uL RBC (4.2-5.4) M/uL Hgb (12.0-16.0) g/dL Hct (37-47) % MCV (80-100) fL MCH (25-34) pg MCHC (32-36) g/dL RDW Std Deviation (36.4-46.3) fL RDW Coeff of Courtney (11.5-14.5) % Plt Count (130-400) K/uL MPV (7.4-10.4) fL Immature Gran % (Auto) % Neut % (Auto) % Lymph % (Auto) % [place] % (Auto) % Eos % (Auto) % Baso % (Auto) % Neut # (Auto) (1.4-6.5) K/uL Lymph # (Auto) (1.2-3.4) K/uL [place] # (Auto) (0.11-0.59) K/uL Eos # (Auto) (0-0.5) K/uL Baso # (Auto) (0-0.2) K/uL Immature Gran # (Auto) (0.00-0.02) K/uL PT (9.0-12.0) Seconds INR (0.9-1.1) Sodium (136-145) mmol/L Potassium (3.5-5.1) mmol/L Chloride (98-107) mmol/L Carbon Dioxide (21-32) mmol/L Anion Gap (3-11) BUN (7-18) mg/dl Creatinine (0.6-1.2) mg/dl Est Cr Clr Drug Dosing ml/min Est GFR ( Amer) Est GFR (Non-Af Amer) BUN/Creatinine Ratio (10-20) Glucose (70-99) mg/dl Calcium (8.5-10.1) mg/dl Troponin I (0-0.045) ng/ml SARS-CoV-2 Ag (Rapid) Negative (Negative) Administered Medications Discontinued Medications Fentanyl Citrate (Fentanyl Citrate 100 Mcg/2 Ml Vial) 50 mcg IV NOW STA Stop: 02/16/20 02:13 Last Admin: 02/16/20 02:30 Dose: 50 mcg Documented by: [id number] Fentanyl Citrate (Fentanyl Citrate 100 Mcg/2 Ml Vial) 50 mcg IV NOW STA Stop: 02/16/20 02:53 Last Admin: 02/16/20 02:59 Dose: 50 mcg Documented by: [id number] Sodium Chloride (Nss) 500 mls @ 999 mls/hr IV .Q31M ONE Stop: 02/16/20 03:22 Last Infusion: 02/16/20 03:32 Dose: 0 mls/hr Documented by: [id number] Admin: 02/16/20 03:01 Dose: 999 mls/hr Documented by: [id number] Ioversol (Ioversol 100ml) 118 ml IV ONCE ONE Stop: 02/16/20 03:05 Last Admin: 02/16/20 03:05 Dose: 1 ml Documented by: [id number] Nitroglycerin (Nitroglycerin Sl 0.4 Mg/Tab Tab) 0.4 mg SL NOW STA Stop: 02/16/20 02:13 Last Admin: 02/16/20 02:30 Dose: 0.4 mg Documented by: [id number] Discharge Plan Visit Data Chief Complaint: Chest Pain Stated Complaint: ARM PAIN ED Provider: Kalyan Miguel Discharge Problem: Substernal chest pain, Elevated INR Forms Stand Alone Forms: [employer] Prescriptions Prescriptions: No Action levothyroxine 100 mcg tablet 100 mcg PO QAM RF: 0 metoclopramide HCl [Reglan] 10 mg Tablet 10 mg PO UD PRN (Reason: Nausea) RF: 0 furosemide 40 mg tablet 40 mg PO QAM RF: 0 folic acid 1 mg Tablet 1 mg PO QAM Qty: 30 RF: 0 thiamine HCl (vitamin B1) [Vitamin B-1] 50 mg Tablet 50 mg PO QAM Qty: 30 RF: 0 sennosides [Senokot] 8.6 mg Tablet 17.2 mg PO HS PRN (Reason: constipation) Qty: 28 RF: 0 amitriptyline 25 mg Tablet 50 mg PO BID RF: 0 ropinirole 2 mg tablet 2 mg PO TID RF: 0 metoprolol tartrate 25 mg Tablet 25 mg PO BID Qty: 60 RF: 5 ferrous sulfate 325 mg (65 mg iron) tablet,delayed release (DR/EC) 325 mg PO DAILY Qty: 30 RF: 0 ascorbic acid (vitamin C) 500 mg tablet 500 mg PO DAILY Qty: 30 RF: 0 warfarin 5 mg tablet 5 mg PO DAILY RF: 0 bisacodyl [Laxative (bisacodyl)] 10 mg Suppository 10 mg OH DAILY PRN (Reason: Constipation) Qty: 28 RF: 0 tramadol 50 mg Tablet 50 mg PO TID PRN (Reason: Pain) RF: 0 acetaminophen [Tylenol Extra Strength] 500 mg Tablet 500 mg PO Q6H PRN (Reason: Pain) RF: 0 spironolactone 25 mg Tablet 12.5 mg PO DAILY RF: 0 magnesium hydroxide [Milk of Magnesia] 400 mg/5 mL Suspension 5 ml PO DAILY PRN (Reason: Constipation) RF: 0 lidocaine HCl 4 % (40 mg/mL) solution 1 applic PO DIRECTED PRN (Reason: MOUTH ULCERS) RF: 0 gabapentin 100 mg capsule 100 mg PO Q8H PRN (Reason: pain) Qty: 20 RF: 0 nitroglycerin [Nitrostat] 0.4 mg Tablet, Sublingual 0.4 mg Sublingual DIRECTED PRN (Reason: Chest Pain) RF: 0 omeprazole 20 mg Capsule,Delayed Release(Dr/Ec) 20 mg PO PM RF: 0 cholecalciferol (vitamin D3) [Vitamin D3] 1,000 unit Capsule 1,000 unit PO QAM RF: 0 rosuvastatin 10 mg Tablet 10 mg PO QPM RF: 0
[2020-02-16 02:20] LABS: Basophils # (auto) 0.01 K/uL (0-0.2); Basophils % (auto) 0.1 %; Eosinophils # (auto) 0.21 K/uL (0-0.5); Eosinophils % (auto) 2.7 %; Hematocrit (blood only) 38.5 % (37-47); Hemoglobin 12.6 g/dL (12.0-16.0); Immature Granulocytes # (auto) 0.02 K/uL (0.00-0.02); Immature Granulocytes % (auto) 0.3 %; Lymphocytes # (auto) 1.35 K/uL (1.2-3.4); Lymphocytes % (auto) 17.5 %; Mean Corpuscular Hgb Conc 32.7 g/dL (32-36); Mean Corpuscular Volume 88.7 fL (80-100); Mean Platelet Volume 11.1 fL (7.4-10.4); Monocytes # (auto) 0.63 K/uL (0.11-0.59); Monocytes % (auto) 8.2 %; Neutrophils # (auto) 5.48 K/uL (1.4-6.5); Neutrophils % (auto) 71.2 %; Platelet Count 195 K/uL (130-400); RDW Coefficient of Variation 14.1 % (11.5-14.5); RDW Standard Deviation 46.5 fL (36.4-46.3); Red Blood Count 4.34 M/uL (4.2-5.4)
[2020-02-16 02:38] LABS: INR 4.9 (0.9-1.1); Prothrombin Time 47.8 Seconds (9.0-12.0)
[2020-02-16 02:46] LABS: BUN Creatinine Ratio 17.8 (10-20); Blood Urea Nitrogen 29 mg/dl (7-18); Calcium 9.5 mg/dl (8.5-10.1); Carbon Dioxide 34 mmol/L (21-32); Chloride 99 mmol/L (98-107); Creatinine Clr Calc Pharmacy 30.2 ml/min; Est GFR (African American) 37.1; Glucose 117 mg/dl (70-99); Potassium 3.6 mmol/L (3.5-5.1); Sodium 137 mmol/L (136-145)
[2020-02-16 02:51] LABS: Troponin I < 0.015 ng/ml (0-0.045)
[2020-02-16] MEDS ORDERED: SODIUM CHLORIDE 0.9% 500 ML IV ONE (02:52)
[2020-02-16] MEDS ORDERED: IOVERSOL 100ml IV ONE (03:04)
[2020-02-16] MEDS ORDERED: ONDANSETRON INJ 2 MG/ML 2 ML VIAL IV PRN (07:01)
[2020-02-16] MEDS ORDERED: ACETAMINOPHEN 500 MG TAB PO PRN (07:01)
[2020-02-16] MEDS ORDERED: MoRPHine SULFATE 2 MG/ML CARP IV PRN (07:01)
[2020-02-16] MEDS ORDERED: bisacodyL 10 MG SUPP PR PRN (07:01)
[2020-02-16] MEDS ORDERED: SENNA 8.6 MG TAB PO PRN (07:01)
[2020-02-16] MEDS ORDERED: MAGNESIUM HYDROXIDE SUSP 30 ML UDC PO PRN (07:01)
[2020-02-16] MEDS ORDERED: GABAPENTIN 100 MG CAP PO PRN (07:01)
[2020-02-16] MEDS ORDERED: NITROGLYCERIN SL 0.4 MG/TAB TAB SL PRN (07:01)
[2020-02-16] MEDS ORDERED: METOCLOPRAMIDE HCL 10 MG TABLET PO PRN (07:01)
[2020-02-16] MEDS ORDERED: POLYETHYLENE (MIRALAX) 17 GM PACK PO PRN (07:01)
[2020-02-16] MEDS ORDERED: traMADol HCL 50 MG TABLET ONE (07:04)
--- NOTE | 2020-02-16 07:04 | XRay Report ---
XR chest 1V portable HISTORY: 64 years-old Female chest pain acute atypical chest pain with radiation into the back. COMPARISON: CTA chest of same day TECHNIQUE: Portable AP view of the chest FINDINGS: Cardiac silhouette is enlarged. Prior median sternotomy with mitral valvular prosthesis. There is no pneumothorax, pleural effusion, airspace consolidation or overt pulmonary edema. Mild linear scarring /atelectasis of the left lung base. The bones of the chest appear grossly intact. IMPRESSION: Cardiomegaly without acute process. ACT 112: Negative or not required by law. The above report was generated using voice recognition software. It may contain grammatical, syntax o r spelling errors. Electronically signed by: Juan Scott M.D. 02/16/2020 7:03 AM
[2020-02-16] MEDS: SODIUM CHLORIDE 0.9% 1000ML 1,000 ML IV SCH ×2 (07:47→21:16)
[2020-02-16] MEDS: LEVOTHYROXINE SODIUM 100 MCG TABLET PO SCH (07:48)
[2020-02-16] MEDS: NITROGLYCERIN 2% OINTMENT 30GM TUBE EXT SCH ×3 (07:48→17:12)
[2020-02-16 08:21] LABS: Estimated Average Glucose 137 mg/dl; Hemoglobin A1C 6.4 % (4.5-5.6)
--- NOTE | 2020-02-16 08:29 | CT Scan Report ---
CT angio chest wo/w con HISTORY: 64 years-old Female anterior chest, upper back and left shoulder pain acute upper chest yung n with clinical concern for possible dissection. COMPARISON: Chest radiograph of same day TECHNIQUE: CTA of the chest was obtained both with and without the use of moderate 18 mL Optiray 320. 3-D coronal and sagittal MIPS were obtained from the axial data set and were submitted for review. A ll measurements were obtained according to NASCET criteria. A dose lowering technique was used consis tent with the principals wendy GRISSOM. FINDINGS: CTA: Marked multichamber cardiac enlargement. No pericardial effusion. Prior median sternotomy with mitral valvular prosthesis. No thoracic aortic aneurysm or dissection. Patency of the imaged great vessels. The opacified pulmonary artery is unremarkable without evidence of thromboembolic disease. The nonco ntrast scan demonstrates no intramural or mediastinal hematoma. Mild coronary artery calcifications. CT CHEST: Thyroidectomy. No adenopathy. No pneumothorax, pleural effusion, overt pulmonary edema, suspicious pu lmonary nodule or mass. Minimal dependent right basilar atelectasis. There is no airspace consolidati on typical for pneumonia. Central airways appear patent. No acute process of the imaged upper abdomen. Unremarkable soft tissues. Bones appear unremarkable. T here is no acute fracture. IMPRESSION: 1. Marked cardiomegaly with prior median sternotomy and mitral valvular prosthesis. 2. No acute aortic pathology or pulmonary emboli. 3. No adenopathy, pleural effusion or airspace consolidation. ACT 112: Negative or not required by law. The above report was generated using voice recognition software. It may contain grammatical, syntax o r spelling errors. Electronically signed by: Juan Scott M.D. 02/16/2020 8:28 AM
[2020-02-16] MEDS: AMITRIPTYLINE HCL 50 MG TAB PO SCH ×2 (08:37→21:15)
[2020-02-16] MEDS: FERROUS SULFATE 325 MG TAB PO SCH (08:37)
[2020-02-16] MEDS: METOPROLOL TARTRATE 25 MG TAB PO SCH ×2 (08:37→21:15)
[2020-02-16] MEDS: FOLIC ACID 1 MG TAB PO SCH (08:37)
[2020-02-16] MEDS: ASCORBIC ACID 500 MG TAB PO SCH (08:37)
[2020-02-16] MEDS: rOPINIRole HCL 1 MG TABLET PO SCH ×3 (08:38→21:16)
[2020-02-16] MEDS: CHOLECALCIFEROL 1,000 UNITS 25 MCG TAB PO SCH (08:38)
[2020-02-16] MEDS: THIAMINE HCL 50 MG TABLET PO SCH (08:38)
--- NOTE | 2020-02-16 08:40 | History and Physical Report ---
DATE OF ADMISSION: 02/16/2020 CHIEF COMPLAINT: Chest pain. HISTORY OF PRESENT ILLNESS: A 64-year-old female with past medical history significant for type 2 diabetes, not on any medications, chronic kidney disease stage III, hypothyroidism, hyperlipidemia, permanent atrial fibrillation, tachybrady syndrome, history of rheumatic heart disease, status post mechanical mitral valve replacement, history of coronary artery disease, GERD, generalized osteoarthritis, restless leg syndrome, migraines, history of TIA, status post bilateral knee replacements, presents with chest pain. The patient says around 12:30 a.m., she had chest pain about 5-6/10 in severity, dull aching pain, no radiation, no sweating, no nausea, no dizziness. Nitroglycerin did not help her pain in the ER, fentanyl helped her pain, but still she has some pain there. Denies any cough, no fever, no chills, no headache, no blurred vision, no earache, no runny nose, no sore throat. She has chronic cough. Currently, no nausea, no abdominal pain. Normal bowel and bladder movements. No rash. She says she ambulates okay. ALLERGIES: HYDROXYZINE, PROCHLORPERAZINE, PROMETHAZINE, OXYCODONE, PERRY INHIBITORS, METFORMIN, PARSLEY, TETRACYCLINE. PAST MEDICAL HISTORY: As mentioned above. PAST SURGICAL HISTORY: Cardiac catheterization, bilateral knee arthroplasty, colonoscopy, EGD with biopsy, electrical cardioversion, mechanical mitral valve replacement, partial hysterectomy, fibromatosis. MEDICATIONS: The patient is on Tylenol 500 mg p.o. q. 6 hours p.r.n., amitriptyline 50 mg p.o. b.i.d., vitamin C 500 mg p.o. daily, bisacodyl 10 mg DC daily p.r.n., vitamin D 1000 units p.o. a.m., ferrous sulfate 325 mg p.o. daily, folic acid 1 mg p.o. a.m., Lasix 40 mg p.o. a.m., gabapentin 100 mg p.o. t.i.d. p.r.n., levothyroxine 100 mcg p.o. daily, lidocaine application as directed, milk of magnesia 5 mL p.o. daily p.r.n., Reglan 10 mg p.o. p.r.n., metoprolol 25 mg p.o. b.i.d., Nitrostat 0.4 sublingual p.r.n., omeprazole 20 mg p.o. p.m., ropinirole 2 mg p.o. t.i.d., Crestor 10 mg p.o. p.m., Senokot 17.2 mg p.o. at bedtime p.r.n., spironolactone 12.5 mg p.o. daily, vitamin B1 50 mg p.o. daily, tramadol 50 mg p.o. t.i.d. p.r.n., Coumadin 5 mg p.o. daily. FAMILY HISTORY: Significant for uncle had heart disorder. Maternal grandfather had cancer. Father had bladder cancer. SOCIAL HISTORY: Single. No smoking. Occasional drug use. REVIEW OF SYMPTOMS: As per HPI. Rest of review of symptoms negative. PHYSICAL EXAMINATION: GENERAL: The patient is of moderate build, not in acute distress. VITAL SIGNS: Temperature 36.4, pulse 72, respiratory rate 20, blood pressure 113/74, oxygen 99% on room air. HEENT: Pupils equal, round, reactive to light. Oral mucosa moist. NECK: No neck masses seen. CARDIOVASCULAR: S1, S2, regular rate and rhythm, no murmur, no gallop. RESPIRATORY SYSTEM: Normal AP diameter. No accessory muscle use. No wheezing, no crackles. ABDOMEN: Soft, bowel sounds present, nontender. No distention. CENTRAL NERVOUS SYSTEM: Cranial nerves II through XII grossly intact, nonfocal. EXTREMITIES: +1 pedal edema present, no erythema seen. LABORATORY DATA: WBC 7.7, hemoglobin 12.6, hematocrit 38.5, platelets 195. PT 47.8, INR 4.9. Sodium 137, potassium 3.6, chloride 99, bicarbonate 34, BUN 29, creatinine 1.65, serum glucose 117, calcium 9.5. Troponin I less than 0.015. SARS-CoV-2 rapid antigen test negative. IMAGING: Chest x-ray, no acute findings seen. CTA of the chest, preliminary report, no acute findings. EKG: Atrial fibrillation at a rate of 78, incomplete right bundle branch block, no acute ST changes seen. ASSESSMENT AND PLAN: This is a 64-year-old female who presents with chest pain. 1. Chest pain, history of coronary artery disease. Pain improved with Fentanyl, but not by nitroglycerin, still has some pain, okay for nitropatch. Initial workup is negative, we will follow serial enzymes, echocardiogram, repeat EKG. Keep her n.p.o. and consult cardiology in a.m. for further recommendation. 2. History of coronary artery disease. Continue home medication beta marjorie, statin. 3. History of mechanical mitral valve replacement, on Coumadin. INR is 4.9. Holding Coumadin. Follow PT/INR. 4. History of atrial fibrillation, rate controlled with metoprolol. INR is supratherapeutic.Follow INR. 5. Diabetes, not on medication. We will follow HbA1c level, currently n.p.o. 6. Gastroesophageal reflux disease on omeprazole. 7. Hypertension: Continue metoprolol and spironolactone. Monitor the blood pressure. 8. Hypothyroidism: Continue Synthroid. 9. History of transient ischemic attack, on Coumadin, and statin. 10. Acute kidney injury on chronic kidney disease stage III, baseline creatinine 1.4, presently creatinine 1.6, we will place on gentle fluids. Follow the labs in a.m. 11. Deep venous thrombosis prophylaxis. INR is supratherapeutic. Follow inr. DISPOSITION: Closely observe in tele floor. Level 1 full code. Expect to discharge home and follow with family doctor. JENNIFER
--- NOTE | 2020-02-16 08:43 | Cardiology Consultation ---
Date of Consultation February 16, 2020 Assessment & Plan (1) Substernal chest pain: Atypical chest pain, resolved since admission Negative troponin x2 EKG without ischemic changes Chest xray and Chest CT negative for acute process Echocardiogram is pending If unremarkable, plan for outpatient nuclear stress test (2) VICKY (acute kidney injury): Gentle hydration recommended (3) Atrial fibrillation: Chronic afib. Rates controlled on outpatient beta marjorie Continue coumadin INR goal with mechanical valve is 3.0-3.5 (4) Mechanical heart valve present: echocardiogram is pending Case Discussed with Dr. Salcido. Await echo results. As long as echo is unchanged from prior evaluation in April 2019, patient will be stable for discharge and will plan for outpatient nuclear stress test. Supervising Physician Co-Signing Physician Notes Patient seen and examined at the bedside. Describes upper thoracic, posterior cervical, and left shoulder discomfort beginning last evening. Initial symptoms followed by chest tightness. She came to the ER for further evaluation and treatment. Symptoms unchanged with sublingual nitroglycerin. Pain improved with intravenous fentanyl. Discomfort has resolved this morning. Notes mild residual left shoulder discomfort. Denies associated shortness of breath, palpitations, lightheadedness, dizziness, syncope, or near syncope. Vital capacity is stable however limited by knee discomfort. Denies any recent change or decline in her functional capacity. No orthopnea, PND, lower extremity edema, or claudication. PE: VSS, Gen: NAD, AAOx3. Heart: Irregular rhythm, normal S1 and S2, crisp S2 valve closure click auscultated, soft 1/6 midsystolic murmur heard best at the left ventricular apex. Lungs: Clear bilateral, no rales, rhonchi, wheeze. Extremities: No clubbing, cyanosis, edema. A/P: 64-year-old female with complex cardiovascular history listed above presents to the emergency department atypical chest, back, shoulder discomfort. Initial assessment for acute coronary syndrome is unremarkable. No evidence of ischemic ECG changes, elevated troponin, or new regional wall motion abnormality on echocardiogram. Repeat echo demonstrates normal functioning mechanical mitral valve prosthesis. Patient symptoms have improved/resolved since admission. Recommend outpatient Lexiscan nuclear stress testing for further risk stratification. No further inpatient cardiovascular testing or intervention at this time. Thank you for allow me to participate in the care of your patient. History of Present Illness Reason for Consultation: Chest pain Requesting Physician: Dr. Pollard Attending Physician: Dr. Salcido. History of Present Illness Patient is a 64 year old female who is known to [facility], primary foot roentgenologist Dr. Molina, for complex history includin. 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 2. Chronic atrial fibrillation with borderline tachy Chris syndrome 3. Past embolic myocardial infarction and TIA, on chronic anticoagulation. Goal INR 3.0-3.5 due to mechanical valve and history of CVA, per outpatient records 4. Type 2 diabetes mellitus. 5. Hyperlipidemia. 6. Chronic renal insufficiency Patient reports she was in usual state of health yesterday and last evening when she developed sudden onset left shoulder and arm pain radiating across her chest. She was watching television at the time. After several minutes, she took 1 sublingual nitro without relief. She therefore summoned EMS. She was given a second sublingual nitro in the ambulance without improvement. She denied associated diaphoresis, shortness of breath, palpitations, dizziness, syncope or near syncope. Upon arrival to ER, she was given fentanyl with improvement in her chest tightness and with only residual mild left shoulder pain. Patient denies recent chest pain at rest or with exertion. No changes to her functional capacity. She admits to worsening neck pain and headaches recently. She is undergoing upcoming evaluation of her neck pain with [facility], Dr. Vigil next week. She also admits to dysphagia and undergoing EGD and screening colonoscopy in Feb 2019. In ER, she was found to have mildly elevated creatinine above her baseline. Treated with IV fluids. she underwent Chest CT which was negative for pulmonary embolus or acute process. Her EKG was without acute changes. Negative troponin x2 this morning. At time of consult, patient resting comfortably in bed. Chest pressure/tightness resolved. Mild residual left shoulder pain. No change with movement of extr emity. Notes ongoing neck "stiffness/tightness". No SOB. No cough, fever, chills. No dizziness or palpitations. Echocardiogram was ordered and pending Allergies Allergy/AdvReac Type Severity Reaction Status Date / Time hydroxyzine Allergy Severe DYSTONIA Verified 02/16/20 04:36 prochlorperazine Allergy Severe NUCHAL Verified 02/16/20 04:36 DYSTONIA promethazine Allergy Severe NUCHAL Verified 02/16/20 04:36 DYSTONIA oxycodone Allergy Intermediate Numbness Verified 02/16/20 04:36 PERRY Inhibitors AdvReac Intermediate COUGH Verified 02/16/20 04:36 lisinopril AdvReac Intermediate Cough Verified 02/16/20 04:36 metformin AdvReac Intermediate DIARRHEA Verified 02/16/20 04:36 parsley AdvReac Intermediate AGITATION Verified 02/16/20 04:36 tetracycline AdvReac Intermediate DYSPEPSIA Verified 02/16/20 04:36 NAUSEA MEDICINES Allergy Unknown SEE NOTE Uncoded 02/16/20 04:36 BELOW Home Medications Medication Instructions Recorded Confirmed Type cholecalciferol (vitamin D3) 1,000 unit PO QAM 12/05/17 02/16/20 History [Vitamin D3] nitroglycerin [Nitrostat] 0.4 mg SUBLINGUAL DIRECTED PRN 12/05/17 02/16/20 History omeprazole 20 mg PO PM 12/05/17 02/16/20 History rosuvastatin 10 mg PO QPM 12/05/17 02/16/20 History furosemide 40 mg PO QAM 05/18/18 02/16/20 History levothyroxine 100 mcg PO QAM 05/18/18 02/16/20 History metoclopramide HCl [Reglan] 10 mg PO UD PRN 05/18/18 02/16/20 History folic acid 1 mg PO QAM #30 tab 05/21/18 02/16/20 Rx thiamine HCl (vitamin B1) [Vitamin 50 mg PO QAM #30 tab 05/21/18 02/16/20 Rx B-1] sennosides [Senokot] 17.2 mg PO HS PRN #28 tab 09/24/18 02/16/20 Rx amitriptyline 50 mg PO BID 10/08/18 02/16/20 History ascorbic acid (vitamin C) 500 mg PO DAILY #30 tab 10/08/18 02/16/20 Rx ferrous sulfate 325 mg PO DAILY #30 tab 10/08/18 02/16/20 Rx metoprolol tartrate 25 mg PO BID #60 tab 10/08/18 02/16/20 Rx ropinirole 2 mg PO TID 10/08/18 02/16/20 History warfarin 5 mg PO DAILY 10/22/18 02/16/20 History bisacodyl [Laxative (bisacodyl)] 10 mg GA DAILY PRN #28 ea 01/19/19 02/16/20 Rx acetaminophen [Tylenol Extra 500 mg PO Q6H PRN 12/31/19 02/16/20 History Strength] gabapentin 100 mg PO Q8H PRN #20 cap 12/31/19 02/16/20 Rx lidocaine HCl 1 applic PO DIRECTED PRN 12/31/19 02/16/20 History magnesium hydroxide [Milk of 5 ml PO DAILY PRN 12/31/19 02/16/20 History Magnesia] spironolactone 12.5 mg PO DAILY 12/31/19 02/16/20 History tramadol 50 mg PO TID PRN 12/31/19 02/16/20 History Patient History Medical History (Updated 02/16/20 @ 04:42 by Kalyan Miguel MD) A-fib Anemia chronic; baseline hgb 9-10 range per chart review Anxiety CKD (chronic kidney disease), stage III Diabetes diet controlled GERD (gastroesophageal reflux disease) controlled History of blood transfusion autologous s/p MVR (1993), 09/2018 (post-op) HTN (hypertension) Hx of myocardial infarction 2000, medical management Hyperlipidemia Hypothyroidism Migraines 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 migraine vs. stress related)-- plavix since discontinued Surgical History H/O radioactive iodine thyroid ablation H/O: hysterectomy History of cardiac cath 2000= NO STENTS History of colonoscopy History of tonsillectomy and adenoidectomy History of total left knee replacement Hx of appendectomy Hx of cholecystectomy Hx of mitral valve replacement 1993 (rheumatic valvular disease) Hx of tubal ligation Family History Uncle , of [place] in his 40s Coronary heart disease Social History Smoking Status: Never smoker Second Hand Exposure: No; Hx Alcohol Use: Yes Alcohol type: wine Hx Substance Use: No Preferred Language: Urdu Communication Ability: Effective Research Program Internship Required: No Beliefs That Will Affect Care: None marital status: Single Current Living Situation: Family Current Living Situation Comment: MOTHER current occupational status: disabled Other Information That Helps Us Care for You: No Feels Safe at Home: Yes Safety Concerns: Feels Safe At This Time Assistive Devices: Denture - Upper, Denture - Lower and Glasses Review of Systems Review of Systems: All systems reviewed & are unremarkable except as noted in HPI & below Physical Exam Constitutional: well developed and well nourished; no acute distress Eyes: PERRL, conjunctivae normal, anicteric sclerae Neck: trachea midline, no thyromegaly Respiratory: normal respiratory effort, lungs clear to auscultation Cardiovascular: Rate/Rhythm: + irregularly irregular Heart Sounds: + murmur (II/ systolic murmur with crisp mech valve sounds) Vessels: no JVD Extremities: no edema Gastrointestinal (Abdomen): normal bowel sounds, soft, nontender, no hepatosplenomegaly Skin: no rashes, warm and dry Neurologic: PERRL, EOMI, accommodation nl, no face palsy, no dysarthria Psychiatric: A+Ox3, euthymic affect Results & Data ([facility]) Vital Signs (Past 12 Hours) Vital Signs Temp Pulse Pulse Resp BP BP Pulse Ox 02/16/20 06:25 36.8 C 76 18 152/74 H 97 02/16/20 06:00 68 12 103/54 L 96 02/16/20 05:30 69 22 121/69 97 02/16/20 05:00 67 13 111/63 97 02/16/20 04:30 72 15 114/52 L 97 02/16/20 04:01 72 20 113/54 L 99 02/16/20 03:00 80 22 133/62 96 02/16/20 02:30 78 17 134/63 100 02/16/20 02:00 36.4 C L 79 16 133/69 100 Laboratory Results 02/16/20 02/16/20 02/16/20 Range/Units Unknown 07:34 07:34 WBC (4.8-10.8) K/uL RBC (4.2-5.4) M/uL Hgb (12.0-16.0) g/dL Hct (37-47) % MCV (80-100) fL MCH (25-34) pg MCHC (32-36) g/dL RDW Std Deviation (36.4-46.3) fL RDW Coeff of Courtney (11.5-14.5) % Plt Count (130-400) K/uL MPV (7.4-10.4) fL Immature Gran % (Auto) % Neut % (Auto) % Lymph % (Auto) % [place] % (Auto) % Eos % (Auto) % Baso % (Auto) % Neut # (Auto) (1.4-6.5) K/uL Lymph # (Auto) (1.2-3.4) K/uL [place] # (Auto) (0.11-0.59) K/uL Eos # (Auto) (0-0.5) K/uL Baso # (Auto) (0-0.2) K/uL Immature Gran # (Auto) (0.00-0.02) K/uL PT (9.0-12.0) Seconds INR (0.9-1.1) Sodium (136-145) mmol/L Potassium (3.5-5.1) mmol/L Chloride (98-107) mmol/L Carbon Dioxide (21-32) mmol/L Anion Gap (3-11) BUN (7-18) mg/dl Creatinine (0.6-1.2) mg/dl Est Cr Clr Drug Dosing ml/min Est GFR ( Amer) Est GFR (Non-Af Amer) BUN/Creatinine Ratio (10-20) Glucose (70-99) mg/dl Estimat Average Glucose 137 mg/dl Hemoglobin A1c 6.4 H (4.5-5.6) % Calcium (8.5-10.1) mg/dl Troponin I < 0.015 (0-0.045) ng/ml SARS-CoV-2 Ag (Rapid) Negative (Negative) 02/16/20 02/16/20 02/16/20 Range/Units 02:08 02:08 02:08 WBC 7.70 (4.8-10.8) K/uL RBC 4.34 (4.2-5.4) M/uL Hgb 12.6 (12.0-16.0) g/dL Hct 38.5 (37-47) % MCV 88.7 (80-100) fL MCH 29.0 (25-34) pg MCHC 32.7 (32-36) g/dL RDW Std Deviation 46.5 H (36.4-46.3) fL RDW Coeff of Courtney 14.1 (11.5-14.5) % Plt Count 195 (130-400) K/uL MPV 11.1 H (7.4-10.4) fL Immature Gran % (Auto) 0.3 % Neut % (Auto) 71.2 % Lymph % (Auto) 17.5 % [place] % (Auto) 8.2 % Eos % (Auto) 2.7 % Baso % (Auto) 0.1 % Neut # (Auto) 5.48 (1.4-6.5) K/uL Lymph # (Auto) 1.35 (1.2-3.4) K/uL [place] # (Auto) 0.63 H (0.11-0.59) K/uL Eos # (Auto) 0.21 (0-0.5) K/uL Baso # (Auto) 0.01 (0-0.2) K/uL Immature Gran # (Auto) 0.02 (0.00-0.02) K/uL PT 47.8 H (9.0-12.0) Seconds INR 4.9 H (0.9-1.1) Sodium 137 (136-145) mmol/L Potassium 3.6 (3.5-5.1) mmol/L Chloride 99 (98-107) mmol/L Carbon Dioxide 34 H (21-32) mmol/L Anion Gap 4.0 (3-11) BUN 29 H (7-18) mg/dl Creatinine 1.65 H (0.6-1.2) mg/dl Est Cr Clr Drug Dosing 30.2 ml/min Est GFR ( Amer) 37.1 Est GFR (Non-Af Amer) 32.0 BUN/Creatinine Ratio 17.8 (10-20) Glucose 117 H (70-99) mg/dl Estimat Average Glucose mg/dl Hemoglobin A1c (4.5-5.6) % Calcium 9.5 (8.5-10.1) mg/dl Troponin I < 0.015 (0-0.045) ng/ml SARS-CoV-2 Ag (Rapid) (Negative) Diagnostic Findings Chest CTA on admission: IMPRESSION: 1. Marked cardiomegaly with prior median sternotomy and mitral valvular prosthesis. 2. No acute aortic pathology or pulmonary emboli. 3. No adenopathy, pleural effusion or airspace consolidation. Chest xray on admission: NO acute process EKG on admission: Atrial fibrillation Incomplete right bundle branch block Left anterior fascicular block T wave abnormality, consider lateral ischemia Prior Outside Echo April 2019: Interpretation Summary The primary indication after review was deemed appropriate and the examination was performed. Normal LV chamber size and wall thickness. Normal LV systolic function without regional wall motion abnormality. Calculated LV ejection Fraction = 59% (bi-plane method of discs). The right ventricular cavity size is normal (basal dimension < 4.2 cm RV apical 4 chamber view). The right ventricular systolic function is mildly reduced . Mild aortic valve sclerosis without stenosis. Mild aortic regurgitation. There is a mitral valve central disc (Roe-Medtronic type) mechanical prosthesis present. The mitral valve disc motion is normal. The mitral valve prosthesis systolic gradients are normal for this type prosthesis. Significant mitral valve prosthesis regurgitation is absent. Moderate tricuspid regurgitation. Severe biatrial enlargement. Pulmonary hypertension is present. The estimated pulmonary artery systolic pressure is 49mm Hg assuming a RA pressure of 15 mmHg. Medications Administered Medications cholecalciferol (vitamin D3) [Vitamin D3] 1,000 unit PO QAM 12/05/17 [History Confirmed 02/16/20] nitroglycerin [Nitrostat] 0.4 mg SUBLINGUAL DIRECTED PRN 12/05/17 [History Confirmed 02/16/20] omeprazole 20 mg PO PM 12/05/17 [History Confirmed 02/16/20] rosuvastatin 10 mg PO QPM 12/05/17 [History Confirmed 02/16/20] furosemide 40 mg PO QAM 05/18/18 [History Confirmed 02/16/20] levothyroxine 100 mcg PO QAM 05/18/18 [History Confirmed 02/16/20] metoclopramide HCl [Reglan] 10 mg PO UD PRN 05/18/18 [History Confirmed 01/19 11/07] folic acid 1 mg PO QAM #30 tab 05/21/18 [Rx Confirmed 02/16/20] thiamine HCl (vitamin B1) [Vitamin B-1] 50 mg PO QAM #30 tab 05/21/18 [Rx Confirmed 02/16/20] sennosides [Senokot] 17.2 mg PO HS PRN #28 tab 09/24/18 [Rx Confirmed 02/16/20] amitriptyline 50 mg PO BID 10/08/18 [History Confirmed 02/16/20] ascorbic acid (vitamin C) 500 mg PO DAILY #30 tab 10/08/18 [Rx Confirmed 02/16/20] ferrous sulfate 325 mg PO DAILY #30 tab 10/08/18 [Rx Confirmed 02/16/20] metoprolol tartrate 25 mg PO BID #60 tab 10/08/18 [Rx Confirmed 02/16/20] ropinirole 2 mg PO TID 10/08/18 [History Confirmed 02/16/20] warfarin 5 mg PO DAILY 10/22/18 [History Confirmed 02/16/20] bisacodyl [Laxative (bisacodyl)] 10 mg GA DAILY PRN #28 ea 01/19/19 [Rx Confirmed 02/16/20] acetaminophen [Tylenol Extra Strength] 500 mg PO Q6H PRN 12/31/19 [History Confirmed 02/16/20] gabapentin 100 mg PO Q8H PRN #20 cap 12/31/19 [Rx Confirmed 02/16/20] lidocaine HCl 1 applic PO DIRECTED PRN 12/31/19 [History Confirmed 02/16/20] magnesium hydroxide [Milk of Magnesia] 5 ml PO DAILY PRN 12/31/19 [History Confirmed 02/16/20] spironolactone 12.5 mg PO DAILY 12/31/19 [History Confirmed 02/16/20] tramadol 50 mg PO TID PRN 12/31/19 [History Confirmed 02/16/20] Home Medications Acetaminophen (Acetaminophen 325 Mg Tab) 650 mg PO Q4H PRN PRN Reason: Pain or Fever Stop: 03/17/20 07:00 Last Admin: 02/16/20 08:45 Dose: 650 mg Documented by: Acetaminophen (Acetaminophen 500 Mg Tab) 500 mg PO Q6H PRN PRN Reason: Pain Stop: 03/17/20 07:00 Amitriptyline HCl (Amitriptyline Hcl 50 Mg Tab) 50 mg PO BID [facility] Stop: 03/17/20 08:59 Last Admin: 02/16/20 08:37 Dose: 50 mg Documented by: Ascorbic Acid (Ascorbic Acid 500 Mg Tab) 500 mg PO DAILY PRISCILA Stop: 03/17/20 08:59 Last Admin: 02/16/20 08:37 Dose: 500 mg Documented by: Bisacodyl (Bisacodyl 10 Mg Supp) 10 mg GA DAILY PRN PRN Reason: Constipation Stop: 03/17/20 07:00 Ferrous Sulfate (Ferrous Sulfate 325 Mg Tab) 325 mg PO DAILY [facility] Stop: 03/17/20 08:59 Last Admin: 02/16/20 08:37 Dose: 325 mg Documented by: Folic Acid (Folic Acid 1 Mg Tab) 1 mg PO QAM [facility] Stop: 03/17/20 08:59 Last Admin: 02/16/20 08:37 Dose: 1 mg Documented by: Furosemide (Furosemide 40 Mg Tab) 40 mg PO QAM [facility] Stop: 03/17/20 08:59 Last Admin: 02/16/20 08:38 Dose: 40 mg Documented by: Gabapentin (Gabapentin 100 Mg Cap) 100 mg PO Q8H PRN PRN Reason: pain Stop: 03/17/20 07:00 Sodium Chloride (Nss 1000ml) 1,000 mls @ 75 mls/hr IV .[id number] [facility] Stop: 03/17/20 07:00 Last Admin: 02/16/20 07:47 Dose: 75 mls/hr Documented by: Levothyroxine Sodium (Levothyroxine Sodium 100 Mcg Tablet) 100 mcg PO DAILYBB [facility] Stop: 03/17/20 07:59 Last Admin: 02/16/20 07:48 Dose: 100 mcg Documented by: Magnesium Hydroxide (Magnesium Hydroxide Susp 30 Ml Udc) 5 ml PO DAILY PRN PRN Reason: Constipation Stop: 03/17/20 07:00 Metoclopramide HCl (Metoclopramide Hcl 10 Mg Tablet) 10 mg PO TIDM PRN PRN Reason: Nausea Stop: 03/17/20 07:00 Metoprolol Tartrate (Metoprolol Tartrate 25 Mg Tab) 25 mg PO BID [facility] Stop: 03/17/20 08:59 Last Admin: 02/16/20 08:37 Dose: 25 mg Documented by: Miscellaneous (Lidocaine 4%: Order Awaiting Action) 1 ea N/A QS [facility] Stop: 03/17/20 07:59 Last Admin: 02/16/20 07:48 Dose: Not Given Documented by: Morphine Sulfate (Morphine Sulfate 2 Mg/Ml Carp) 2 mg IV Q30M PRN PRN Reason: Chest Pain Stop: 03/01/20 07:00 Nitroglycerin (Nitroglycerin Sl 0.4 Mg/Tab Tab) 0.4 mg SL UD PRN PRN Reason: Chest Pain Stop: 03/17/20 07:00 Nitroglycerin (Nitroglycerin 2% Ointment 30gm Tube) 0.5 inch EXT Q6 PRISCILA Stop: 03/17/20 07:29 Last Admin: 02/16/20 07:48 Dose: 0.5 inch Documented by: Ondansetron HCl (Ondansetron Inj 2 Mg/Ml 2 Ml Vial) 4 mg IV Q6H PRN PRN Reason: Nausea Stop: 03/17/20 07:00 Pantoprazole Sodium (Pantoprazole 40 Mg Tab) 40 mg PO PM [facility]; Protocol Stop: 03/17/20 20:59 Polyethylene Glycol (Polyethylene (Miralax) 17 Gm Pack) 17 gm PO DAILY PRN PRN Reason: Constipation Stop: 03/17/20 07:00 Ropinirole HCl (Ropinirole Hcl 1 Mg Tablet) 2 mg PO TID [facility] Stop: 03/17/20 08:59 Last Admin: 02/16/20 08:38 Dose: 2 mg Documented by: Rosuvastatin Calcium (Rosuvastatin Calcium 10 Mg Tab) 10 mg PO QPM [facility] Stop: 03/17/20 20:59 Sennosides (Senna 8.6 Mg Tab) 17.2 mg PO HS PRN PRN Reason: constipation Stop: 03/17/20 07:00 Spironolactone (Spironolactone 12.5 Mg Tab) 12.5 mg PO DAILY [facility] Stop: 03/17/20 08:59 Last Admin: 02/16/20 08:37 Dose: 12.5 mg Documented by: Thiamine HCl (Thiamine Hcl 50 Mg Tablet) 50 mg PO QAM [facility] Stop: 03/17/20 08:59 Last Admin: 02/16/20 08:38 Dose: 50 mg Documented by: Tramadol HCl (Tramadol Hcl 50 Mg Tablet) 50 mg PO TID PRN PRN Reason: Pain Stop: 03/17/20 07:00 Vitamin D (Cholecalciferol 1,000 Units 25 Mcg Tab) 1,000 units PO QAM [facility] Stop: 03/17/20 08:59 Last Admin: 02/16/20 08:38 Dose: 1,000 units Documented by: (1) Atrial fibrillation Atrial fibrillation type: unspecified Qualified Code(s): I48.91 - Unspecified atrial fibrillation
[2020-02-16] MEDS: ACETAMINOPHEN 325 MG TAB PO PRN (08:45)
[2020-02-16] MEDS ORDERED: SPIRONOLACTONE 12.5 MG TAB PO SCH (09:00)
[2020-02-16] MEDS ORDERED: FUROSEMIDE 40 MG TAB PO SCH (09:00)
--- NOTE | 2020-02-16 12:50 | Electrocardiogram Report ---
Test Reason : Blood Pressure : / mmHG Vent. Rate : 078 BPM Atrial Rate : 064 BPM P-R Int : 000 ms QRS Dur : 106 ms QT Int : 408 ms P-R-T Axes : 000 -45 101 degrees QTc Int : 465 ms Atrial fibrillation Incomplete right bundle branch block Left anterior fascicular block T wave abnormality, consider lateral ischemia Abnormal ECG When compared with ECG of 31-DEC-2019 06:05, Incomplete right bundle branch block is now Present Confirmed by Abbe Bates ([id number]) on 02/16/2020 12:49:58 PM Referred By: REFERRED SELF Confirmed By:Saqib Bates
--- NOTE | 2020-02-16 15:43 | Hospitalist Progress Note ---
Date of Service February 16, 2020 Assessment & Plan (1) Substernal chest pain: presented with substernal chest pain symptoms has resolved appreciate input from Cardiology , no evidence of ACS ECHO shows no wall motion abnormality out pt stress test diet ordered HTN: Bp on lower side D/c Nitro paste as pt is not having any chest pain Acute renal failure on CKD stage 3: ordered for IV fluid hold Lasix and Aldactone repeat BMP in AM Hx of mechanical heart valve : on Coumadin , INR > 4 Coumadin on hold will be resumed once INR <3.5 high risk for valve thrombus Vit K for coagulopathy should not be used unless life threatening bleeding Neck pain : possible cervical radiculopathy avoid NSAID's /takes prn tramadol continued follows with Spinal ortho Chronic Dysphagia : scheduled for EGD /Colonoscopy 02/24/2020 diet changed to mechanical soft aspiration precaution Full code DVT prophylaxis : INR elevated Disposition : possible home in am if renal function improves to baseline Admission and Anticipated Discharge Date Admission Date: February 16, 2020 Anticipated date of discharge: 02/17/20 Subjective FOLLOW UP VISIT FOR CHEST PAIN ; seen in room 230/1 pt reports no symptoms of chest heaviness , no SOB or BENAVIDES vitals been stable complain of rt neck pain -which has been chronic -been followed with spinal ortho no cough or fever , no dizzy spell or lightheadedness Review of Systems Review of Systems: All systems reviewed & are unremarkable except as noted in HPI & below Cardiovascular: no chest pain, no dyspnea, no dyspnea at rest, no dyspnea on exertion, no orthopnea, no palpitations, no lightheadedness and no edema Physical Exam Constitutional: WD/WN, vitals as above Eyes: PERRL, conjunctivae normal, anicteric sclerae ENMT: external ear and nose normal, oropharynx normal Neck: trachea midline, no thyromegaly Respiratory: normal respiratory effort, lungs clear to auscultation Cardiovascular: RRR, no murmur, no edema Gastrointestinal (Abdomen): normal bowel sounds, soft, nontender, no hepatosplenomegaly Musculoskeletal: no cyanosis or clubbing, extremities motor strength 5/5 Skin: no rashes, warm and dry Neurologic: PERRL, EOMI, accommodation nl, no face palsy, no dysarthria Psychiatric: A+Ox3, euthymic affect Results & Data Results & Data ([place]) Vital Signs (Past 12 Hours) Vital Signs Temp Pulse Pulse Resp BP BP BP 02/16/20 15:38 36.6 C 64 18 109/66 02/16/20 12:00 36.6 C 61 16 110/64 02/16/20 08:00 71 02/16/20 07:00 36.5 C 86 18 120/73 02/16/20 06:25 36.8 C 76 18 152/74 H 02/16/20 06:00 68 12 103/54 L 02/16/20 05:30 69 22 121/69 02/16/20 05:00 67 13 111/63 02/16/20 04:30 72 15 114/52 L 02/16/20 04:01 72 20 113/54 L Pulse Ox 02/16/20 15:38 99 02/16/20 12:00 94 02/16/20 08:00 02/16/20 07:00 95 02/16/20 06:25 97 02/16/20 06:00 96 02/16/20 05:30 97 02/16/20 05:00 97 02/16/20 04:30 97 02/16/20 04:01 99
[2020-02-16] MEDS ORDERED: PANTOprazole 40 MG TAB PO SCH (21:00)
[2020-02-16] MEDS ORDERED: ROSUVASTATIN CALCIUM 10 MG TAB PO SCH (21:00)
[2020-02-16] MEDS: traMADol HCL 50 MG TABLET PO PRN (21:17)
[2020-02-17] MEDS: LEVOTHYROXINE SODIUM 100 MCG TABLET PO SCH (05:13)
[2020-02-17] MEDS: traMADol HCL 50 MG TABLET PO PRN (05:45)
[2020-02-17 06:39] LABS: INR 4.1 (0.9-1.1); Prothrombin Time 40.2 Seconds (9.0-12.0)
[2020-02-17 06:58] VITALS: TEMP 97.5; O2SAT 99
[2020-02-17 06:59] LABS: BUN Creatinine Ratio 14.7 (10-20); Calcium 8.7 mg/dl (8.5-10.1); Creatinine Clr Calc Pharmacy 39.1 ml/min; Est GFR (African American) 50.9; Est GFR (Non-African American) 43.9; Magnesium 2.5 mg/dl (1.8-2.4); Potassium 3.6 mmol/L (3.5-5.1)
[2020-02-17] MEDS: ACETAMINOPHEN 325 MG TAB PO PRN (08:03)
[2020-02-17] MEDS: rOPINIRole HCL 1 MG TABLET PO SCH (08:04)
[2020-02-17] MEDS: METOPROLOL TARTRATE 25 MG TAB PO SCH (08:05)
[2020-02-17] MEDS: CHOLECALCIFEROL 1,000 UNITS 25 MCG TAB PO SCH (08:07)
[2020-02-17] MEDS: ASCORBIC ACID 500 MG TAB PO SCH (08:10)
[2020-02-17] MEDS: THIAMINE HCL 50 MG TABLET PO SCH (08:10)
[2020-02-17] MEDS: AMITRIPTYLINE HCL 50 MG TAB PO SCH (08:10)
[2020-02-17] MEDS: FOLIC ACID 1 MG TAB PO SCH (08:11)
[2020-02-17] MEDS: FERROUS SULFATE 325 MG TAB PO SCH (08:15)
[2020-02-17] MEDS: SODIUM CHLORIDE 0.9% 1000ML 1,000 ML IV SCH (10:24)
[2020-02-17 12:48] VITALS: BP 130/72; PULSE 64
--- NOTE | 2020-02-17 14:52 | Electrocardiogram Report ---
Test Reason : Blood Pressure : / mmHG Vent. Rate : 080 BPM Atrial Rate : 000 BPM P-R Int : 000 ms QRS Dur : 104 ms QT Int : 430 ms P-R-T Axes : 000 -48 042 degrees QTc Int : 495 ms Atrial fibrillation with a competing junctional pacemaker Incomplete right bundle branch block Left anterior fascicular block Moderate voltage criteria for LVH, may be normal variant ( R in aVL , [place] product ) Nonspecific ST abnormality Prolonged QT Abnormal ECG When compared with ECG of 16-FEB-2020 02:00, No significant change was found Confirmed by Abbe Bates ([id number]) on 02/17/2020 2:52:12 PM Referred By: REFERRED SELF Confirmed By:Saqib Bates
--- NOTE | 2020-02-18 11:11 | Discharge Summary ---
Date of Service February 17, 2020 Admission HPI Per Admitting Provider CHIEF COMPLAINT: Chest pain. HISTORY OF PRESENT ILLNESS: A 64-year-old female with past medical history significant for type 2 diabetes, not on any medications, chronic kidney disease stage III, hypothyroidism, hyperlipidemia, permanent atrial fibrillation, tachybrady syndrome, history of rheumatic heart disease, status post mechanical mitral valve replacement, history of coronary artery disease, GERD, generalized osteoarthritis, restless leg syndrome, migraines, history of TIA, status post bilateral knee replacements, presents with chest pain. The patient says around 12:30 a.m., she had chest pain about 5-6/10 in severity, dull aching pain, no radiation, no sweating, no nausea, no dizziness. Nitroglycerin did not help her pain in the ER, fentanyl helped her pain, but still she has some pain there. Denies any cough, no fever, no chills, no headache, no blurred vision, no earache, no runny nose, no sore throat. She has chronic cough. Currently, no nausea, no abdominal pain. Normal bowel and bladder movements. No rash. She says she ambulates okay. Admission Exam Per Admitting Provider GENERAL: The patient is of moderate build, not in acute distress. VITAL SIGNS: Temperature 36.4, pulse 72, respiratory rate 20, blood pressure 113/74, oxygen 99% on room air. HEENT: Pupils equal, round, reactive to light. Oral mucosa moist. NECK: No neck masses seen. CARDIOVASCULAR: S1, S2, regular rate and rhythm, no murmur, no gallop. RESPIRATORY SYSTEM: Normal AP diameter. No accessory muscle use. No wheezing, no crackles. ABDOMEN: Soft, bowel sounds present, nontender. No distention. CENTRAL NERVOUS SYSTEM: Cranial nerves II through XII grossly intact, nonfocal. EXTREMITIES: +1 pedal edema present, no erythema seen. Principal Diagnosis CHEST PAIN ACUTE RENAL FAILURE ON CKD STAGE 3 MECHANICAL VALVE REPLACEMENT TYPE 2 DM Discharge Exam Constitutional: WD/WN, vitals as above Eyes: PERRL, conjunctivae normal, anicteric sclerae ENMT: external ear and nose normal, oropharynx normal Neck: trachea midline, no thyromegaly Respiratory: normal respiratory effort, lungs clear to auscultation Cardiovascular: RRR, no murmur, no edema Gastrointestinal: normal bowel sounds, soft, nontender, no hepatosplenomegaly Musculoskeletal: no cyanosis or clubbing, extremities motor strength 5/5 Skin: no rashes, warm and dry Neurologic: PERRL, EOMI, accommodation nl, no face palsy, no dysarthria Psychiatric: A+Ox3, euthymic affect Discharge Data Allergies Allergy/AdvReac Type Severity Reaction Status Date / Time hydroxyzine Allergy Severe DYSTONIA Verified 02/16/20 04:36 prochlorperazine Allergy Severe NUCHAL Verified 02/16/20 04:36 DYSTONIA promethazine Allergy Severe NUCHAL Verified 02/16/20 04:36 DYSTONIA oxycodone Allergy Intermediate Numbness Verified 02/16/20 04:36 PERRY Inhibitors AdvReac Intermediate COUGH Verified 02/16/20 04:36 lisinopril AdvReac Intermediate Cough Verified 02/16/20 04:36 metformin AdvReac Intermediate DIARRHEA Verified 02/16/20 04:36 parsley AdvReac Intermediate AGITATION Verified 02/16/20 04:36 tetracycline AdvReac Intermediate DYSPEPSIA Verified 02/16/20 04:36 gabapentin AdvReac Drowsy Verified 02/17/20 14:01 NAUSEA MEDICINES Allergy Unknown SEE NOTE Uncoded 02/16/20 04:36 BELOW Consultations 02/16/20 04:13 ED Decision to Admit Stat 02/16/20 07:01 Consult Case Management - Discharge Planning Routine 02/16/20 08:00 Consult Cardiology Routine Ordered Studies 02/16/20 02:53 CT angio chest wo/w con Urgent CT angio chest wo/w con HISTORY: 64 years-old Female anterior chest, upper back and left shoulder pain acute upper chest pain with clinical concern for possible dissection. COMPARISON: Chest radiograph of same day TECHNIQUE: CTA of the chest was obtained both with and without the use of modera te 18 mL Optiray 320. 3-D coronal and sagittal MIPS were obtained from the axial data set and were submitted for review. All measurements were obtained according to NASCET criteria. A dose lowering technique was used consistent with the principals of JACIEL. FINDINGS: CTA: Marked multichamber cardiac enlargement. No pericardial effusion. Prior median sternotomy with mitral valvular prosthesis. No thoracic aortic aneurysm or dissection. Patency of the imaged great vessels. The opacified pulmonary artery is unremarkable without evidence of thromboembolic disease. The noncontrast scan demonstrates no intramural or mediastinal hematoma. Mild coronary artery calcifications. CT CHEST: Thyroidectomy. No adenopathy. No pneumothorax, pleural effusion, overt pulmonary edema, suspicious pulmonary nodule or mass. Minimal dependent right basilar atelectasis. There is no airspace consolidation typical for pneumonia. Central airways appear patent. No acute process of the imaged upper abdomen. Unremarkable soft tissues. Bones appear unremarkable. There is no acute fracture. IMPRESSION: 1. Marked cardiomegaly with prior median sternotomy and mitral valvular prosthesis. 2. No acute aortic pathology or pulmonary emboli. 3. No adenopathy, pleural effusion or airspace consolidation. ACT 112: Negative or not required by law. The above report was generated using voice recognition software. It may contain grammatical, syntax or spelling errors. Electronically signed by: Juan Scott M.D. 02/16/2020 8:28 AM Dictated: 02/16/20815Transcribed: 02/16/20815 XR chest 1V portable HISTORY: 64 years-old Female chest pain acute atypical chest pain with radiation into the back. COMPARISON: CTA chest of same day TECHNIQUE: Portable AP view of the chest FINDINGS: Cardiac silhouette is enlarged. Prior median sternotomy with mitral valvular prosthesis. There is no pneumothorax, pleural effusion, airspace consolidation or overt pulmonary edema. Mild linear scarring/atelectasis of the left lung base. The bones of the chest appear grossly intact. IMPRESSION: Cardiomegaly without acute process. ACT 112: Negative or not required by law. The above report was generated using voice recognition software. It may contain grammatical, syntax or spelling errors. Electronically signed by: Juan Scott M.D. 02/16/2020 7:03 AM Dictated: 02/16/20 0644Transcribed: 02/16/20 0646 Hospital Course (1) Substernal chest pain: presented with substernal chest pain symptoms has resolved appreciate input from Cardiology , no evidence of ACS ECHO shows no wall motion abnormality out pt stress test diet ordered HTN: Bp on lower side D/c Nitro paste as pt is not having any chest pain Acute renal failure on CKD stage 3: ordered for IV fluid hold Lasix and Aldactone repeat BMP in AM Hx of mechanical heart valve : on Coumadin , INR > 4 Coumadin on hold will be resumed once INR <3.5 high risk for valve thrombus Vit K for coagulopathy should not be used unless life threatening bleeding Neck pain : possible cervical radiculopathy avoid NSAID's /takes prn tramadol continued follows with Spinal ortho Chronic Dysphagia : scheduled for EGD /Colonoscopy 02/24/2020 diet changed to mechanical soft aspiration precaution Full code DVT prophylaxis : INR elevated Disposition : possible home in am if renal function improves to baseline Total Time Total Time Spent Total Time Spent (In Minutes): 35 minutes Total Time Includes: Examination of the Patient, Discharge Planning, Medication Reconciliation, Communication With Other Providers and Other Discharge Plan Discharge Items Patient Disposition: Home - Self-Care Reason For Visit: CHEST PAIN Discharge Diagnosis: CHEST PAIN-RESOLVED, NO ANGINA ACUTE RENAL FAILURE ON CKD STAGE 3 MECHANICAL VALVE REPLACEMENT TYPE 2 DM Activity: Resume your previous activity Non-emergency contact: Primary Care Provider Call non-emergency contact if: you have any medication questions Follow-up/Referrals: Hadley Molina MD [Physician] - John Blanco MD [Primary Care Provider] - Diet: Heart Healthy Diet Texture: Dental soft (bite-sized) Addtl Attending Provider Instructions: CARDIOLOGY FOLLOW UP FOR OUT PATIENT CARDIAC STRESS TEST HOSPITAL FOLLOW UP WITH FAMILY PHYSICIAN IN A WEEK Follow up with the coumadin clinic to monitor PT/INR LAB : BASIC METABOLIC PANEL IN 1 WEEK Pending Studies at Discharge: No Stand-Alone Forms: My [employer], Smoking Cessation Medications and DC Order Prescriptions: Continued levothyroxine 100 mcg tablet 100 mcg PO QAM RF: 0 metoclopramide HCl [Reglan] 10 mg Tablet 10 mg PO UD PRN (Reason: Nausea) RF: 0 furosemide 40 mg tablet 40 mg PO QAM RF: 0 folic acid 1 mg Tablet 1 mg PO QAM Qty: 30 RF: 0 thiamine HCl (vitamin B1) [Vitamin B-1] 50 mg Tablet 50 mg PO QAM Qty: 30 RF: 0 sennosides [Senokot] 8.6 mg Tablet 17.2 mg PO HS PRN (Reason: constipation) Qty: 28 RF: 0 amitriptyline 25 mg Tablet 50 mg PO BID RF: 0 ropinirole 2 mg tablet 2 mg PO TID RF: 0 metoprolol tartrate 25 mg Tablet 25 mg PO BID Qty: 60 RF: 5 ferrous sulfate 325 mg (65 mg iron) tablet,delayed release (DR/EC) 325 mg PO DAILY Qty: 30 RF: 0 ascorbic acid (vitamin C) 500 mg tablet 500 mg PO DAILY Qty: 30 RF: 0 warfarin 5 mg tablet 5 mg PO DAILY RF: 0 bisacodyl [Laxative (bisacodyl)] 10 mg Suppository 10 mg PA DAILY PRN (Reason: Constipation) Qty: 28 RF: 0 tramadol 50 mg Tablet 50 mg PO TID PRN (Reason: Pain) RF: 0 acetaminophen [Tylenol Extra Strength] 500 mg Tablet 500 mg PO Q6H PRN (Reason: Pain) RF: 0 spironolactone 25 mg Tablet 12.5 mg PO DAILY RF: 0 magnesium hydroxide [Milk of Magnesia] 400 mg/5 mL Suspension 5 ml PO DAILY PRN (Reason: Constipation) RF: 0 lidocaine HCl 4 % (40 mg/mL) solution 1 applic PO DIRECTED PRN (Reason: MOUTH ULCERS) RF: 0 gabapentin 100 mg capsule 100 mg PO Q8H PRN (Reason: pain) Qty: 20 RF: 0 nitroglycerin [Nitrostat] 0.4 mg Tablet, Sublingual 0.4 mg Sublingual DIRECTED PRN (Reason: Chest Pain) RF: 0 omeprazole 20 mg Capsule,Delayed Release(Dr/Ec) 20 mg PO PM RF: 0 cholecalciferol (vitamin D3) [Vitamin D3] 1,000 unit Capsule 1,000 unit PO QAM RF: 0 rosuvastatin 10 mg Tablet 10 mg PO QPM RF: 0 Discharge Orders: Discharge Order (Routine); Ordered 02/17/20 Ordered By: Monica Franklin Admission Data Admit Date/Time: 02/16/20 05:02 Attending Provider: Monica Franklin Admit Provider: Jake Pollard Primary Care Provider: John Blanco Other Providers: Jake Pollard ; Hadley Molina ; Cristin Mcguire Other Interventions: Discharge Summary Assessment (RN) Last Done: 02/17/20 12:47
== END 2020-02-17 14:11 | disposition home or self-care (01) ==
LOC: ED 01:57 → 2S 01:57 → SUATTDRO 05:02 → 2S 06:05 → 3N 15:56

== ENCOUNTER 2021-01-13 02:41 | Inpatient (IN) ==
--- NOTE | 2021-01-13 03:09 | Emergency Department Note ---
History of Present Illness General Chief complaint: Fall Stated complaint: FALL Time Seen by Provider: 01/13/21 02:46 Source: patient Mode of arrival: EMS Limitations: no limitations History of Present Illness Provider complaint: 3 falls Onset (ago): day(s) 1 Maximum Pain Intensity: 4 This is a 65-year-old female brought in by EMS after concern for recurrent falls today. Patient states she fell 3 times today. She denies tripping or mechanical fall. Patient denies any prodromal symptoms of weakness, dizziness, headaches, chest pain. Patient states she would suddenly realize she was on the floor and get back up. Patient states the last time she recalls striking her head on the coffee table on the way down. Patient states she did fall a couple weeks ago as well. 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 Patient does use warfarin due to a history of a mitral valve replacement many years ago. Patient states she also has chronic atrial fibrillation. Patient denies any recent change in medications. She denies any recent illness or other injury. No change in bowel or bladder function. She denies chest pain, trouble breathing, cough, vision changes. Patient states many years ago she did have similar episodes and it was felt that her medications needed to be decreased that she had lost weight and they felt her medications were at that time too strong for her. Patient states she has been fine in the interim ever since. Patient denies neck pain, back pain, or concern for extremity injury. Pt seen during a time of high acuity and national emergency pandemic while wearing PPE. Home Medications Medication Instructions Recorded Confirmed Type cholecalciferol (vitamin D3) 25 1,000 unit PO QAM 12/05/17 10/15/20 History mcg (1,000 unit) capsule (Vitamin D3) nitroglycerin 0.4 mg sublingual 0.4 mg SUBLINGUAL DIRECTED PRN 12/05/1709/19 History tablet (Nitrostat) omeprazole 20 mg capsule,delayed 20 mg PO PM 12/05/17 10/15/20 History release furosemide 40 mg tablet 80 mg PO MOWEFR 05/18/18 10/15/20 History levothyroxine 100 mcg tablet 100 mcg PO QAM 05/18/18 10/15/20 History metoclopramide HCl 10 mg tablet 10 mg PO UD PRN 05/18/18 10/15/20 History (Reglan) folic acid 1 mg tablet 1 mg PO QAM #30 tab 05/21/18 10/15/20 Rx thiamine HCl (vitamin B1) 50 mg 50 mg PO QAM #30 tab 05/21/18 10/15/20 Rx tablet (Vitamin B-1) amitriptyline 25 mg tablet 50 mg PO BID 10/08/18 10/15/20 History metoprolol tartrate 25 mg tablet 25 mg PO BID #60 tab 10/08/18 10/15/20 Rx ropinirole 2 mg tablet 2 mg PO TID 10/08/18 10/15/20 History warfarin 5 mg tablet 5 mg PO SUMOWEFR 10/22/18 10/15/20 History bisacodyl 10 mg rectal suppository 10 mg HI DAILY PRN #28 ea 01/19/19 10/15/20 Rx (Laxative (bisacodyl)) acetaminophen 500 mg tablet 500 mg PO Q6H PRN 12/31/19 10/15/20 History (Tylenol Extra Strength) lidocaine HCl 4 % (40 mg/mL) 1 applic PO DIRECTED PRN 12/31/19 10/15/20 History mucosal solution magnesium hydroxide 400 mg/5 mL 5 ml PO DAILY PRN 12/31/19 10/15/20 History oral suspension (Milk of Magnesia) spironolactone 25 mg tablet 12.5 mg PO DAILY 12/31/19 10/15/20 History tramadol 50 mg tablet 50 mg PO TID PRN 12/31/19 10/15/20 History furosemide 40 mg tablet 40 mg PO SUTUTHSA 10/15/20 10/15/20 History rosuvastatin 20 mg tablet 20 mg PO HS 10/15/20 10/15/20 History warfarin 5 mg tablet 7.5 mg PO TUTHSA 10/15/20 10/15/20 History albuterol sulfate 90 mcg/actuation 2 puff INHALATION Q4H PRN 01/13/21 01/13/21 History aerosol inhaler (Ventolin HFA) ferrous sulfate 142 mg (45 mg 45 mg PO DAILY 01/13/21 01/13/21 History iron) tablet,extended release (Slow Fe) fluticasone furoate 200 1 inh INHALATION DAILY 01/13/21 01/13/21 History mcg-vilanterol 25 mcg/dose inhalation powder (Breo Ellipta) Allergies Allergy/AdvReac Type Severity Reaction Status Date / Time hydroxyzine Allergy Severe DYSTONIA Verified 01/13/21 06:56 prochlorperazine Allergy Severe NUCHAL Verified 01/13/21 06:56 DYSTONIA promethazine Allergy Severe NUCHAL Verified 01/13/21 06:56 DYSTONIA oxycodone Allergy Intermediate Numbness Verified 01/13/21 06:56 PERRY Inhibitors AdvReac Intermediate COUGH Verified 01/13/21 06:56 lisinopril AdvReac Intermediate Cough Verified 01/13/21 06:56 metformin AdvReac Intermediate DIARRHEA Verified 01/13/21 06:56 parsley AdvReac Intermediate AGITATION Verified 01/13/21 06:56 tetracycline AdvReac Intermediate DYSPEPSIA Verified 01/13/21 06:56 gabapentin AdvReac Drowsy Verified 01/13/21 06:56 NAUSEA MEDICINES Allergy Unknown SEE NOTE Uncoded 01/13/21 06:56 BELOW Past Med/Surg History Medical History (Updated 01/13/21 @ 07:23 by Crystal Steiner DO) A-fib Anemia chronic; baseline hgb 9-10 range per chart review Anxiety CKD (chronic kidney disease), stage III Diabetes diet controlled GERD (gastroesophageal reflux disease) controlled History of blood transfusion autologous s/p MVR (1993), 09/2018 (post-op) HTN (hypertension) Hx of myocardial infarction 2000, medical management Hyperlipidemia Hypothyroidism Migraines 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 migraine vs. stress related)-- plavix since discontinued Surgical History H/O radioactive iodine thyroid ablation H/O: hysterectomy History of cardiac cath 2000= NO STENTS History of colonoscopy History of tonsillectomy and adenoidectomy History of total left knee replacement Hx of appendectomy Hx of cholecystectomy Hx of mitral valve replacement 1993 (rheumatic valvular disease) Hx of tubal ligation Family History Uncle , of [place] in his 40s Coronary heart disease Social History (Reviewed 01/13/21 @ 03:08 by TANYA Diamond Smoking Status: Never smoker Second Hand Exposure: No; Hx Alcohol Use: Yes Alcohol type: wine Hx Substance Use: No Preferred Language: Telugu Communication Ability: Effective 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 Beliefs That Will Affect Care: None marital status: Single Current Living Situation: Family Current Living Situation Comment: MOTHER current occupational status: disabled Feels Safe at Home: Yes Assistive Devices: None Review of Systems A total of 10 systems reviewed and were otherwise negative All systems reviewed & are unremarkable except as noted in HPI & below Physical Exam Vital Signs Vital Signs - 24 hr 01/13/21 02:48 01/13/21 04:28 01/13/21 06:28 Temperature 36.6 C Temperature Source Oral Pulse Rate 79 Pulse Rate [Apical] 79 72 Respiratory Rate 18 18 18 Respiratory Effort / Characteristics Non-Labored Spontaneous Non-Labored Spontaneous Respiratory Depth Normal Normal Respiratory Pattern Regular Regular Blood Pressure 126/85 Blood Pressure [Right Arm] 143/70 H 137/66 Blood Pressure Mean 98 Blood Pressure Mean [Right Arm] 94 89 Blood Pressure Position Lying Blood Pressure Position [Right Arm] Sitting Lying Pulse Oximetry 98 98 98 Oxygen Delivery Method Room Air Room Air Room Air Sepsis Recent Fever Within 48 Hours No Sepsis New/Unexplained Change in Mental Status N/A Sepsis Action Taken by Nursing No Action Required GENERAL: alert, well appearing, well nourished, no distress, non-toxic HEAD: nc, contusion noted to the right parietal region, no kat signs, no raccoon eyes EYE EXAM: normal conjunctiva, PERRL and EOM's grossly intact, no nystagmus OROPHARYNX: no exudate, no erythema, lips, buccal mucosa, and tongue normal and mucous membranes are dry, edentulous NECK: supple, no nuchal rigidity, no adenopathy, non-tender, FROM LUNGS: Clear to auscultation. Normal chest wall mechanics, no w/r/r, HEART: no murmurs, S1 normal and S2 normal, loud snap associated with mechanical valve ABDOMEN: abdomen soft, non-tender, normo-active bowel sounds, no masses, no rebound or guarding. BACK: Back is symmetrical on inspection and there is no deformity, no midline tenderness, no CVA tenderness. SKIN: no rashes and no bruising UPPER EXTREMITIES: upper extremities are grossly normal. FROM, nml pulses b/l. LOWER EXTREMITIES: No pitting edema. FROM, nml pulses b/l. NEURO EXAM: Normal sensorium, cranial nerves II-XII grossly intact, normal s peech, no gross weakness of arms, no gross weakness of legs. Gross sensation intact. Course Course 0535: Pt updated on results. States still feeling dizzy. 0552: Discussed with Dr. Pollard. Administered Medications Sodium Chloride (Nss 1000ml) 1,000 mls @ 125 mls/hr IV .Q8H PRISCILA Stop: 02/12/21 03:14 Last Admin: 01/13/21 03:14 Dose: 125 mls/hr Documented by: [id number] Discontinued Medications Ioversol (Optiray 320 125ml) 120 ml IV ONCE ONE Stop: 01/13/21 04:25 Last Admin: 01/13/21 04:25 Dose: 1 ml Documented by: [id number] Potassium Chloride (Potassium Chloride Crtab 20 Meq Tabcr) 40 meq PO NOW STA Stop: 01/13/21 04:36 Last Admin: 01/13/21 05:07 Dose: 40 meq Documented by: [id number] Medical Decision Making Differential Diagnosis Differential diagnosis includes etiologies such as vasovagal event, infection, hypoglycemia, electrolyte abnormalities, cardiac sources, intracerebral event, toxicologic, neurologic, as well as others were entertained. Medical Records Attestation: I reviewed the patient's medical records. Home Medications Current Medication List: was personally reviewed by me Laboratory Data Attestation: I reviewed the patient's lab results. Result diagrams: 01/13/21 03:12 01/13/21 03:12 Lab Results 01/13/21 01/13/21 01/13/21 Range/Units 03:12 03:12 03:12 WBC 6.70 (4.8-10.8) K/uL RBC 4.36 (4.2-5.4) M/uL Hgb 12.2 (12.0-16.0) g/dL Hct 37.5 (37-47) % MCV 86.0 (80-100) fL MCH 28.0 (25-34) pg MCHC 32.5 (32-36) g/dL RDW Std Deviation 48.5 H (36.4-46.3) fL RDW Coeff of Courtney 15.2 H (11.5-14.5) % Plt Count 178 (130-400) K/uL MPV 10.9 H (7.4-10.4) fL Immature Gran % (Auto) 0.1 % Neut % (Auto) 70.3 % Lymph % (Auto) 16.6 % [place] % (Auto) 9.9 % Eos % (Auto) 3.0 % Baso % (Auto) 0.1 % Neut # (Auto) 4.71 (1.4-6.5) K/uL Lymph # (Auto) 1.11 L (1.2-3.4) K/uL [place] # (Auto) 0.66 H (0.11-0.59) K/uL Eos # (Auto) 0.20 (0-0.5) K/uL Baso # (Auto) 0.01 (0-0.2) K/uL Immature Gran # (Auto) 0.01 (0.00-0.02) K/uL PT 23.8 H (9.0-12.0) Seconds INR 2.5 H (0.9-1.1) Sodium 135 L (136-145) mmol/L Potassium 2.8 L (3.5-5.1) mmol/L Chloride 101 (98-107) mmol/L Carbon Dioxide 31 (21-32) mmol/L Anion Gap 3.0 (3-11) BUN 30 H (7-18) mg/dl Creatinine 2.22 H (0.6-1.2) mg/dl Est Cr Clr Drug Dosing 22.0 ml/min Est GFR ( Amer) 25.7 ml/min Est GFR (Non-Af Amer) 22.2 ml/min BUN/Creatinine Ratio 13.4 (10-20) Glucose 141 H (70-99) mg/dl Calcium 9.7 (8.5-10.1) mg/dl Magnesium 2.7 H (1.8-2.4) mg/dl Total Bilirubin 0.7 (0.2-1) mg/dl AST 52 H (15-37) U/L ALT 46 (12-78) U/L Alkaline Phosphatase 122 H (45-117) U/L Troponin I < 0.015 (0-0.045) ng/ml NT-Pro-B Natriuret Pep 619 (0-900) pg/ml Total Protein 8.4 H (6.4-8.2) gm/dl Albumin 4.0 (3.4-5.0) gm/dl Globulin 4.4 H (2.5-4.0) gm/dl Albumin/Globulin Ratio 0.9 (0.9-2) TSH 0.455 (0.300-4.500) uIu/ml Urine Color Urine Appearance (Clear) Urine pH (4.5-7.5) Ur Specific Mcallister (1.000-1.030) Urine Protein (Negative) Urine Glucose (UA) (Negative) Urine Ketones (Negative) Urine Blood (Negative) Urine Nitrite (Negative) Urine Bilirubin (Negative) Urine Urobilinogen (Negative) Ur Leukocyte Esterase (Negative) Urine WBC (Auto) (0-5) /hpf Urine RBC (Auto) (0-4) /hpf U Hyaline Cast (Auto) (0-5) /lpf U Epithel Cells (Auto) (0-5) /lpf Urine Bacteria (Auto) (Negative) Ur Renal Epithelial Cell (0-5) /lpf Granular Casts (0) /lpf Urine Mucus (None Prsent) SARS-CoV-2, RNA, NAAT (NEGATIVE) 01/13/21 01/13/21 Range/Units 04:28 05:52 WBC (4.8-10.8) K/uL RBC (4.2-5.4) M/uL Hgb (12.0-16.0) g/dL Hct (37-47) % MCV (80-100) fL MCH (25-34) pg MCHC (32-36) g/dL RDW Std Deviation (36.4-46.3) fL RDW Coeff of Courtney (11.5-14.5) % Plt Count (130-400) K/uL MPV (7.4-10.4) fL Immature Gran % (Auto) % Neut % (Auto) % Lymph % (Auto) % [place] % (Auto) % Eos % (Auto) % Baso % (Auto) % Neut # (Auto) (1.4-6.5) K/uL Lymph # (Auto) (1.2-3.4) K/uL [place] # (Auto) (0.11-0.59) K/uL Eos # (Auto) (0-0.5) K/uL Baso # (Auto) (0-0.2) K/uL Immature Gran # (Auto) (0.00-0.02) K/uL PT (9.0-12.0) Seconds INR (0.9-1.1) Sodium (136-145) mmol/L Potassium (3.5-5.1) mmol/L Chloride (98-107) mmol/L Carbon Dioxide (21-32) mmol/L Anion Gap (3-11) BUN (7-18) mg/dl Creatinine (0.6-1.2) mg/dl Est Cr Clr Drug Dosing ml/min Est GFR ( Amer) ml/min Est GFR (Non-Af Amer) ml/min BUN/Creatinine Ratio (10-20) Glucose (70-99) mg/dl Calcium (8.5-10.1) mg/dl Magnesium (1.8-2.4) mg/dl Total Bilirubin (0.2-1) mg/dl AST (15-37) U/L ALT (12-78) U/L Alkaline Phosphatase (45-117) U/L Troponin I (0-0.045) ng/ml NT-Pro-B Natriuret Pep (0-900) pg/ml Total Protein (6.4-8.2) gm/dl Albumin (3.4-5.0) gm/dl Globulin (2.5-4.0) gm/dl Albumin/Globulin Ratio (0.9-2) TSH (0.300-4.500) uIu/ml Urine Color Yellow Urine Appearance Clear (Clear) Urine pH 6.0 (4.5-7.5) Ur Specific Mcallister 1.017 (1.000-1.030) Urine Protein 2+ H (Negative) Urine Glucose (UA) Negative (Negative) Urine Ketones Negative (Negative) Urine Blood 3+ H (Negative) Urine Nitrite Negative (Negative) Urine Bilirubin Negative (Negative) Urine Urobilinogen Negative (Negative) Ur Leukocyte Esterase Negative (Negative) Urine WBC (Auto) 5-10 H (0-5) /hpf Urine RBC (Auto) 0-4 (0-4) /hpf U Hyaline Cast (Auto) 10-30 H (0-5) /lpf U Epithel Cells (Auto) >30 H (0-5) /lpf Urine Bacteria (Auto) 1+ H (Negative) Ur Renal Epithelial Cell 5-10 H (0-5) /lpf Granular Casts 10-20 H (0) /lpf Urine Mucus Present A (None Prsent) SARS-CoV-2, RNA, NAAT NEGATIVE (NEGATIVE) Imaging Data My Impression: X-ray: I interpreted the following studies. Chest: A single view study of the chest was reviewed and was negative for focal infiltrate, effusion, pulmonary edema, or wide mediastinum. Cardiomegaly noted. Evidence of mechanical valve and sternotomy wires. Pelvis: Single AP view of the pelvis was obtained and was negative for acute fracture or dislocation. Radiologist's Impression: Head CTA 01/13/21 03:01 CT angio neck with con, CT angio head w con CLINICAL HISTORY: 65 years-old Female with trauma, syncope. Acute head trauma with syncope COMPARISON STUDY: Head CT of same day, brain MRI 05/19/2018 TECHNIQUE: Following the IV administration of 120 mL of Optiray, CT angiogram of the head and neck was performed from the aortic arch to the skull apex. Images are reviewed in the axial, sagittal, and coronal planes. 3-D MIPS images are created and assessed. IV contrast was administered without complication. All measurements were calculated based on NASCET criteria. A dose lowering technique was utilized adhering to the principles of ALARA. FINDINGS: Three-vessel morphology of the thoracic aortic arch. Patency of the innominate and imaged subclavian arteries. The common and internal carotid arteries are patent. The anterior and middle cerebral arteries are widely patent. Codominant and patent vertebral arteries. The basilar and posterior cerebral arteries are patent. No aneurysm, dissection, high-grade stenosis or arterial occlusion. Cerebral venous sinuses are patent. There is no abnormal intracranial enhancement. Lung apices are clear without pneumothorax. Prior median sternotomy. No adenopathy. Degenerative changes of the cervical spine. IMPRESSION:Unremarkable CTA of the head and neck. ACT 112: Negative or not required by law. The above report was generated using voice recognition software. It may contain grammatical, syntax or spelling errors. Electronically signed by: Gasper Scott M.D. 01/13/2021 6:56 AM Neck CTA 01/13/21 03:01 CT angio neck with con, CT angio head w con CLINICAL HISTORY: 65 years-old Female with trauma, syncope. Acute head trauma with syncope COMPARISON STUDY: Head CT of same day, brain MRI 05/19/2018 TECHNIQUE: Following the IV administration of 120 mL of Optiray, CT angiogram of the head and neck was performed from the aortic arch to the skull apex. Images are reviewed in the axial, sagittal, and coronal planes. 3-D MIPS images are created and assessed. IV contrast was administered without complication. All measurements were calculated based on NASCET criteria. A dose lowering technique was utilized adhering to the principles of ALARA. FINDINGS: Three-vessel morphology of the thoracic aortic arch. Patency of the innominate and imaged subclavian arteries. The common and internal carotid arteries are patent. The anterior and middle cerebral arteries are widely patent. Codominant and patent vertebral arteries. The basilar and posterior cerebral arteries are patent. No aneurysm, dissection, high-grade stenosis or arterial occlusion. Cerebral venous sinuses are patent. There is no abnormal intracranial enhancem ent. Lung apices are clear without pneumothorax. Prior median sternotomy. No adenopathy. Degenerative changes of the cervical spine. IMPRESSION:Unremarkable CTA of the head and neck. ACT 112: Negative or not required by law. The above report was generated using voice recognition software. It may contain grammatical, syntax or spelling errors. Electronically signed by: Gasper Scott M.D. 01/13/2021 6:[address] 01/13/21 03:02 CT head/brain wo con CLINICAL HISTORY: 65 years-old Female with trauma, syncope. Acute syncope with head trauma TECHNIQUE: Multiple axial CT images of the head were obtained without contrast. A dose lowering technique was utilized adhering to the principles of ALARA. CT DOSE: 1030.77 mGy.cm COMPARISON: CTA head and neck of same day, head CT 05/18/2018 FINDINGS: No acute intracranial hemorrhage, midline shift, intracranial mass, hydrocephalus, territorial ischemia or abnormal extra-axial collection. Mild involutional changes. White matter hypodensities suggest chronic microvascular ischemic disease. The calvarium is intact. Small contusion of the right temporal parietal scalp on image 16. The paranasal sinuses, mastoid air cells, and middle ear cavities are clear. IMPRESSION: 1. No acute intracranial abnormality or calvarial fracture. 2. Small right temporal parietal scalp effusion. ACT 112: Negative or not required by law. The above report was generated using voice recognition software. It may contain grammatical, syntax or spelling errors. Electronically signed by: Gasper Scott M.D. 01/13/2021 6:[address] head: No intracranial hemorrhage. No significant mass-effect or midline shift. No evidence for cortical infarct or significant alteration from examination 05/18/2018. Radiologist: Harry Caceres MD CTA head: The petrous, cavernous and supraclinoid portions of the internal carotid arteries are patent. The A1 segments and anterior cerebral arteries are patent. The M1 segments and distal middle cerebral branches are patent. No dissection, occlusion or aneurysm. The distal cervical vertebral arteries are patent. Basilar artery and posterior cerebral arteries are patent. Incidental right posterior communicating artery. No stenosis, occlusion or aneurysm. No abnormal parenchymal enhancement. The visualized dural sinuses are grossly unremarkable. Radiologist: Harry Caceres MD CTA neck: The aortic arch and proximal great vessels are unremarkable. The bilateral common, internal and external carotid arteries are within normal limits. No evidence for dissection or significant stenosis. The vertebral arteries are codominant and are widely patent. No evidence of dissection or high-grade stenosis. Visualized portions of the lung apices are clear. Soft tissues and osseous structures are unremarkable. Radiologist: Harry Morgan MD ECG Data Attestation: I personally reviewed and interpreted this ECG as follows: Indication: + syncope Rate (beats per minute): 72 Rhythm: + atrial fibrillation ECG Intervals/blocks: + Normal QRS and + Normal QT ECG [place]: + Left axis deviation ECG ST segments: + Nonspecific ST abnormalities Additional Comments: Baseline artifact noted MDM Narrative This is a 65-year-old female presents emergency department via EMS due to concern for 3 episodes of syncope today. Patient denied any prodromal symptoms, and denied mechanical fall. Patient is anticoagulated due to history of mechanical valve replacement. Patient did strike her head with the third fall and did have an obvious contusion noted. Patient with no other concern for significant injury from the falls today. Patient denied any recent medication changes or illness. Labs drawn and sent and patient sent for CT imaging to evaluate for injury as well as try to elucidate the etiology of her syncopal events today. Patient was afebrile and hemodynamically stable throughout. Patient's labs and imaging reassuring. Mild hypokalemia was repleted orally here. Patient was cautiously rehydrated. Patient did have a mildly elevated creatinine compared to prior, it is unclear if this is contributing to her events. Patient's description of sudden episodes of loss of consciousness without prodromal symptoms is concerning for other possible vascular event or dysrhythmia. No other dysrhythmia noted on telemetry while patient monitored in the emergency room. No evidence of acute infectious etiology. Discussed all results with patient at bedside. Due to ongoing symptoms of unclear etiology and need for additional management, case was discussed with hospitalist for additional evaluation. An order was placed for continuous cardiac monitoring. The monitor shows a rate of 76__ with _atrial fibrillation_ rhythm. Impression & Plan Recurrent syncope, Closed head injury, Atrial fibrillation, Contusion of scalp, Hypokalemia, Dehydration Discharge Plan Visit Data Chief Complaint: Fall Stated Complaint: FALL ED Provider: Crystal Steiner Discharge Problem: Recurrent syncope, Closed head injury, Atrial fibrillation, Contusion of scalp, Hypokalemia, Dehydration Patient Disposition: Being Evaluated by Hospitalist Condition: Good Forms Stand Alone Forms: [facility] Prescriptions Prescriptions: No Action levothyroxine 100 mcg tablet 100 mcg PO QAM RF: 0 metoclopramide HCl [Reglan] 10 mg Tablet 10 mg PO UD PRN (Reason: Nausea) RF: 0 furosemide 40 mg tablet 80 mg PO MOWEFR RF: 0 folic acid 1 mg Tablet 1 mg PO QAM Qty: 30 RF: 0 thiamine HCl (vitamin B1) [Vitamin B-1] 50 mg Tablet 50 mg PO QAM Qty: 30 RF: 0 amitriptyline 25 mg Tablet 50 mg PO BID RF: 0 ropinirole 2 mg tablet 2 mg PO TID RF: 0 metoprolol tartrate 25 mg Tablet 25 mg PO BID Qty: 60 RF: 5 warfarin 5 mg tablet 5 mg PO SUMOWEFR RF: 0 bisacodyl [Laxative (bisacodyl)] 10 mg Suppository 10 mg HI DAILY PRN (Reason: Constipation) Qty: 28 RF: 0 tramadol 50 mg Tablet 50 mg PO TID PRN (Reason: Pain) RF: 0 acetaminophen [Tylenol Extra Strength] 500 mg Tablet 500 mg PO Q6H PRN (Reason: Pain) RF: 0 spironolactone 25 mg Tablet 12.5 mg PO DAILY RF: 0 magnesium hydroxide [Milk of Magnesia] 400 mg/5 mL Suspension 5 ml PO DAILY PRN (Reason: Constipation) RF: 0 lidocaine HCl 4 % (40 mg/mL) solution 1 applic PO DIRECTED PRN (Reason: MOUTH ULCERS) RF: 0 nitroglycerin [Nitrostat] 0.4 mg Tablet, Sublingual 0.4 mg Sublingual DIRECTED PRN (Reason: Chest Pain) RF: 0 omeprazole 20 mg Capsule,Delayed Release(Dr/Ec) 20 mg PO PM RF: 0 cholecalciferol (vitamin D3) [Vitamin D3] 1,000 unit Capsule 1,000 unit PO QAM RF: 0 furosemide 40 mg tablet 40 mg PO SUTUTHSA RF: 0 warfarin 5 mg tablet 7.5 mg PO TUTHSA RF: 0 rosuvastatin 20 mg tablet 20 mg PO HS RF: 0 Referrals Referrals: John Blanco MD [Primary Care Provider] -
[2021-01-13] MEDS ORDERED: SODIUM CHLORIDE 0.9% 1000ML 1,000 ML IV SCH (03:15)
[2021-01-13 03:32] LABS: Basophils # (auto) 0.01 K/uL (0-0.2); Basophils % (auto) 0.1 %; Hematocrit (blood only) 37.5 % (37-47); Hemoglobin 12.2 g/dL (12.0-16.0); Immature Granulocytes # (auto) 0.01 K/uL (0.00-0.02); Immature Granulocytes % (auto) 0.1 %; Lymphocytes # (auto) 1.11 K/uL (1.2-3.4); Lymphocytes % (auto) 16.6 %; Mean Corpuscular Hgb Conc 32.5 g/dL (32-36); Mean Platelet Volume 10.9 fL (7.4-10.4); Monocytes # (auto) 0.66 K/uL (0.11-0.59); Monocytes % (auto) 9.9 %; Neutrophils # (auto) 4.71 K/uL (1.4-6.5); Neutrophils % (auto) 70.3 %; Platelet Count 178 K/uL (130-400); RDW Coefficient of Variation 15.2 % (11.5-14.5); RDW Standard Deviation 48.5 fL (36.4-46.3); Red Blood Count 4.36 M/uL (4.2-5.4)
[2021-01-13 03:42] LABS: INR 2.5 (0.9-1.1); Prothrombin Time 23.8 Seconds (9.0-12.0)
[2021-01-13 04:01] LABS: Alanine Aminotransferase 46 U/L (12-78); Aspartate Aminotransferase 52 U/L (15-37); BUN Creatinine Ratio 13.4 (10-20); Blood Urea Nitrogen 30 mg/dl (7-18); Calcium 9.7 mg/dl (8.5-10.1); Carbon Dioxide 31 mmol/L (21-32); Chloride 101 mmol/L (98-107); Est GFR (African American) 25.7 ml/min; Est GFR (Non-African American) 22.2 ml/min; Glucose 141 mg/dl (70-99); Magnesium 2.7 mg/dl (1.8-2.4); Potassium 2.8 mmol/L (3.5-5.1); Sodium 135 mmol/L (136-145)
[2021-01-13 04:12] LABS: Albumin Globulin Ratio 0.9 (0.9-2); Alkaline Phosphatase 122 U/L (45-117); Bilirubin,Total 0.7 mg/dl (0.2-1); Globulin 4.4 gm/dl (2.5-4.0); NT Pro B Type Natriuretic Pept 619 pg/ml (0-900); Thyroid Stimulating Hormone 0.455 uIu/ml (0.300-4.500); Total Protein 8.4 gm/dl (6.4-8.2); Troponin I < 0.015 ng/ml (0-0.045)
[2021-01-13] MEDS ORDERED: OPTIRAY 320 125ml IV ONE (04:24)
[2021-01-13] MEDS ORDERED: POTASSIUM CHLORIDE CRTAB 20 MEQ TABCR PO STA ×2 (04:35→23:35)
[2021-01-13 04:47] LABS: Appearance Urine Clear (Clear); Bilirubin Urine Negative (Negative); Blood Urine 3+ (Negative); Color Urine Yellow; Epithelial Cell Urine Auto >30 /lpf (0-5); Glucose Urine UA Negative (Negative); Ketones Urine Negative (Negative); Leukocyte Esterase Urine Negative (Negative); Nitrite Urine Negative (Negative); Protein Urine 2+ (Negative); RBC Urine Automated 0-4 /hpf (0-4); Specific Gravity Urine 1.017 (1.000-1.030); Urobilinogen Urine Negative (Negative)
[2021-01-13 05:09] LABS: Bacteria Urine Automated 1+ (Negative); Mucus Urine Present (None Prsent)
--- NOTE | 2021-01-13 06:44 | CT Scan Report ---
CT head/brain wo con CLINICAL HISTORY: 65 years-old Female with trauma, syncope. Acute syncope with head trauma TECHNIQUE: Multiple axial CT images of the head were obtained without contrast. A dose lowering tech nique was utilized adhering to the principles of ALARA. CT DOSE: 1030.77 mGy.cm COMPARISON: CTA head and neck of same day, head CT 05/18/2018 FINDINGS: No acute intracranial hemorrhage, midline shift, intracranial mass, hydrocephalus, territorial ischem ia or abnormal extra-axial collection. Mild involutional changes. White matter hypodensities suggest chronic microvascular ischemic disease. The calvarium is intact. Small contusion of the right temporal parietal scalp on image 16. The parana carline sinuses, mastoid air cells, and middle ear cavities are clear. IMPRESSION: 1. No acute intracranial abnormality or calvarial fracture. 2. Small right temporal parietal scalp effusion. ACT 112: Negative or not required by law. The above report was generated using voice recognition software. It may contain grammatical, syntax o r spelling errors. Electronically signed by: Gasper Scott M.D. 01/13/2021 6:43 AM
--- NOTE | 2021-01-13 06:57 | CT Scan Report ---
CT angio neck with con, CT angio head w con CLINICAL HISTORY: 65 years-old Female with trauma, syncope. Acute head trauma with syncope COMPARISON STUDY: Head CT of same day, brain MRI 05/19/2018 TECHNIQUE: Following the IV administration of 120 mL of Optiray, CT angiogram of the head and neck wa s performed from the aortic arch to the skull apex. Images are reviewed in the axial, sagittal, and c oronal planes. 3-D MIPS images are created and assessed. IV contrast was administered without complic ation. All measurements were calculated based on NASCET criteria. A dose lowering technique was util ized adhering to the principles of ALARA. FINDINGS: Three-vessel morphology of the thoracic aortic arch. Patency of the innominate and imaged subclavian arteries. The common and internal carotid arteries are patent. The anterior and middle cerebral arter ies are widely patent. Codominant and patent vertebral arteries. The basilar and posterior cerebral a rteries are patent. No aneurysm, dissection, high-grade stenosis or arterial occlusion. Cerebral veno us sinuses are patent. There is no abnormal intracranial enhancement. Lung apices are clear without pneumothorax. Prior median sternotomy. No adenopathy. Degenerative quiroz ges of the cervical spine. IMPRESSION:Unremarkable CTA of the head and neck. ACT 112: Negative or not required by law. The above report was generated using voice recognition software. It may contain grammatical, syntax o r spelling errors. Electronically signed by: Gasper Scott M.D. 01/13/2021 6:56 AM
[2021-01-13] MEDS ORDERED: POTASSIUM CHLORIDE / WTR 10 MEQ/100 ML PLCT IV STA (07:12)
--- NOTE | 2021-01-13 07:17 | XRay Report ---
XR chest 1V portable HISTORY: 65 years-old Female trauma acute chest trauma status post fall COMPARISON: Chest radiograph 10/15/2020 TECHNIQUE: Portable AP view the chest FINDINGS: Cardiac silhouette is enlarged. Prior median sternotomy with cardiac valvular prosthesis. No pneumoth orax, pleural effusion, airspace consolidation or overt pulmonary edema. Degenerative changes of the shoulders and spine. IMPRESSION: Cardiomegaly without acute process. ACT 112: Negative or not required by law. The above report was generated using voice recognition software. It may contain grammatical, syntax o r spelling errors. Electronically signed by: Gasper Scott M.D. 01/13/2021 7:15 AM
--- NOTE | 2021-01-13 07:43 | Electrocardiogram Report ---
Test Reason : Blood Pressure : / mmHG Vent. Rate : 072 BPM Atrial Rate : 064 BPM P-R Int : 000 ms QRS Dur : 100 ms QT Int : 428 ms P-R-T Axes : 000 -39 096 degrees QTc Int : 468 ms Poor data quality, interpretation may be adversely affected Atrial fibrillation Left axis deviation Minimal voltage criteria for LVH, may be normal variant Abnormal ECG When compared with ECG of 15-OCT-2020 19:55, No significant change was found Confirmed by Abbe Bates ([id number]) on 01/13/2021 7:43:24 AM Referred By: REFERRED SELF Confirmed By:Saqib Bates
--- NOTE | 2021-01-13 09:02 | XRay Report ---
XR pelvis 1-2V routine CLINICAL HISTORY: Fall. Right hip pain. COMPARISON STUDY: None. FINDINGS: No fracture or dislocation within the pelvis or hips. Mild osteoarthritis within the bilate ral hips. The sacroiliac joints also demonstrate mild degenerative changes. Soft tissues are unremark able. No radiopaque foreign bodies. IMPRESSION: No fracture or dislocation within the pelvis or hips. ACT 112: Negative or not required by law. Electronically signed by: Darshan Mosquera M.D. 01/13/2021 9:00 AM
--- NOTE | 2021-01-13 11:09 | History and Physical Report ---
DATE OF ADMISSION: 01/13/2021 CHIEF COMPLAINT: Syncope. HISTORY OF PRESENT ILLNESS: This is a 65-year-old female with past medical history significant for type 2 diabetes, hypothyroidism, hyperlipidemia, history of permanent atrial fibrillation, borderline tachybrady syndrome, rheumatic heart disease, history of CAD, varicose veins of both legs, GERD, chronic kidney disease stage III, generalized osteoarthritis, restless legs syndrome, history of migraine, history of TIA, anxiety, history of acute COVID infection on 10/14/2020, treated with monoclonal antibodies as outpatient, history of mitral valve replacement with Medtronic prosthesis in 1993 for rheumatic valvular heart disease, comes because of falls. She says that she fell 3 times today, did not know how she fell. She just dropped down, she denies any losing of consciousness, no shaking of the body and no biting of the tongue, no chest pain or dizziness or palpitations. Currently, resting comfortably and hemodynamically stable. Denies any headache. No blurred visions, no earache, no runny nose, no sore throat, no cough, no fevers. Appetite is okay. No difficulty swallowing. No nausea, no abdominal pain. Normal bowel and bladder movements. Ambulates okay. Lives with her mother. ALLERGIES: HYDROXYZINE, PROCHLORPERAZINE, PROMETHAZINE, OXYCODONE, PERRY INHIBITORS, METFORMIN, TETRACYCLINE, GABAPENTIN, NAUSEA MEDICINES, PARSLEY. PAST MEDICAL HISTORY: As mentioned above. PAST SURGICAL HISTORY: Bilateral knee arthroplasties, left heart catheterization, colonoscopy, EGD, EGD with biopsy, electrical cardioversion, ligation of oviducts, appendectomy, cholecystectomy, mitral valve replacement with Medtronic prosthesis, total abdominal hysterectomy with removal of tubes for endometriosis. MEDICATIONS: The patient is on Tylenol Extra Strength 500 mg p.o. q.6 hours p.r.n., amitriptyline 50 mg p.o. b.i.d., vitamin D 1000 units p.o. a.m., ferrous sulfate 45 mg p.o. a.m., folic acid 1 mg p.o. a.m., Lasix 80 mg on Saturday, Saturday, Saturday, Saturday and 40 mg on Saturday, Saturday, and , levothyroxine 100 mcg p.o. a.m., milk of magnesia p.r.n., metoprolol tartrate 25 mg p.o. b.i.d., nitroglycerin 0.4 sublingual p.r.n., omeprazole 20 mg p.o. p.m., ropinirole 2 mg p.o. t.i.d., lovastatin 20 mg p.o. at bedtime, spironolactone 12.5 mg p.o. daily, tramadol 50 mg p.o. t.i.d. p.r.n., warfarin 5 mg p.o. daily. FAMILY HISTORY: Significant for maternal grandfather had leukemia. Uncle has heart disorder. Father had bladder cancer. SOCIAL HISTORY: Currently lives with her mom. No smoking. Alcohol occasionally. No drug use. REVIEW OF SYSTEMS: As per HPI. Rest of the review of systems is negative. PHYSICAL EXAMINATION: GENERAL: The patient is of moderate build, not in acute distress. VITAL SIGNS: Temperature 36.6, pulse 72, respiratory rate 18, blood pressure 137/66, oxygen 98% on room air. HEENT: Pupils equal, round and reactive to light. Oral mucosa moist. NECK: No JVD. No neck masses. CARDIOVASCULAR: S1 and S2 heard. Regular rate and rhythm. No murmur, no gallop. RESPIRATORY SYSTEM: Normal AP diameter. No accessory muscle use. No wheezing, no crackles. ABDOMEN: Soft, bowel sounds present, nontender, no distention. CENTRAL NERVOUS SYSTEM: Cranial nerves II-XII grossly intact, nonfocal. EXTREMITIES: Pedal edema present, no erythema seen. LABORATORY DATA: WBC 6.7, hemoglobin 12.2, hematocrit 37.5, platelets 178. PT 23.8, INR 2.5. Sodium 135, potassium 2.8, chloride 101, bicarbonate 31, BUN 30, creatinine 2.2, serum glucose 141, calcium 9.7, magnesium 2.7, total bilirubin 0.7, AST 52, ALT 46, alkaline phosphatase 122. Troponin I less than 0.015. BNP 619. TSH is 0.45. Urinalysis positive for bacteria. SARS-CoV-2 negative. IMAGING: CT of the head: No acute intracranial abnormality. Small right temporoparietal scalp effusion. Neck CTA: Unremarkable CTA of the head and neck. Chest x-ray: Cardiomegaly without acute process. EKG: Atrial fibrillation, rate of 72, no significant change was found. ASSESSMENT AND PLAN: 1. This is a 65-year-old female who presents with falls, most likely from syncope, etiology unclear. The patient is found to have hypokalemia, acute kidney injury and urinary tract infection. We will monitor the patient in the telemetry floor. We will hold her diuretics of Lasix, place her on gentle fluids. We will monitor orthostatics. Replace potassium. Follow echocardiogram and serial enzymes and telemetry monitoring and cardiac consult. 2. Acute kidney injury on chronic kidney disease stage III: Baseline creatinine of 1.4, presents with creatinine of 2.2. Holding diuretics. Gentle fluids. Follow the repeat laboratories. 3. Urinary tract infection: On Rocephin for antibiotic. Follow the cultures. 4. Hypokalemia, potassium of 2.8: We will replace. Follow the repeat laboratories. 5. History of mitral valve replacement: On Coumadin. INR is 2.5. We will follow the PT/INR. 6. History of permanent atrial fibrillation, borderline tachybrady syndrome: Rate control with metoprolol and on Coumadin. INR is therapeutic. 7. Hypothyroidism. on levothyroxine 8. Hyperlipidemia. on statin 9. Diabetes: Currently not on any medication. We will follow the blood sugars, follow HbA1c level. Place her on insulin sliding scale. 10. History of coronary artery disease: On statin and beta marjorie. 11. History of hypertension: On metoprolol and diuretics. Diuretics on hold. 12. History of restless legs syndrome: On Requip. 13. Gastroesophageal reflux disease: On omeprazole. 14. Deep venous thrombosis prophylaxis: On Coumadin. INR is therapeutic. DISPOSITION: Admit to tele floor. PT/OT prior to discharge. Social service to help with discharge planning. Level 1, full code. Job ID: [id number]
[2021-01-13] MEDS ORDERED: POLYETHYLENE (MIRALAX) 17 GM PACK PO PRN (11:34)
[2021-01-13] MEDS ORDERED: NITROGLYCERIN SL 0.4 MG/TAB TAB SL PRN (11:34)
[2021-01-13] MEDS ORDERED: ALBUTEROL HFA 8 GM INHALER INH PRN (11:34)
[2021-01-13] MEDS ORDERED: MAGNESIUM HYDROXIDE SUSP 30 ML UDC PO PRN (11:34)
[2021-01-13] MEDS ORDERED: ACETAMINOPHEN 325 MG TAB PO PRN (11:34)
[2021-01-13] MEDS ORDERED: SPIRONOLACTONE 12.5 MG TAB PO SCH (12:00)
[2021-01-13] MEDS ORDERED: DEXTROSE 50% 50 ML SYRINGE IV PRN (12:15)
[2021-01-13] MEDS ORDERED: GLUCOSE 10 TABS/TUBE PO PRN (12:15)
[2021-01-13] MEDS ORDERED: GLUCAGON FOR INJ 1 MG VIAL IM PRN (12:15)
[2021-01-13] MEDS ORDERED: CARBOHYDRATES FOR HYPOGLYCEMIA PO PRN (12:15)
[2021-01-13] MEDS ORDERED: GLUCOSE 40% GEL 15 GM TUBE PO PRN (12:15)
[2021-01-13] MEDS: cefTRIAXone SODIUM 1,000 MG in DEXTROSE 5% 50 ML IV SCH (15:02)
[2021-01-13] MEDS: METOPROLOL TARTRATE 25 MG TAB PO SCH ×2 (15:03→20:09)
[2021-01-13] MEDS: CHOLECALCIFEROL 1,000 UNITS 25 MCG TAB PO SCH (15:03)
[2021-01-13] MEDS: LEVOTHYROXINE SODIUM 100 MCG TABLET PO SCH (15:03)
[2021-01-13] MEDS: FOLIC ACID 1 MG TAB PO SCH (15:03)
[2021-01-13] MEDS: SODIUM CHLORIDE 0.9% 1000ML 1,000 ML IV SCH (15:04)
[2021-01-13] MEDS: AMITRIPTYLINE HCL 50 MG TAB PO SCH ×2 (15:04→20:08)
[2021-01-13] MEDS: FERROUS SULFATE 325 MG TAB PO SCH (15:04)
[2021-01-13] MEDS: rOPINIRole HCL 2 MG TABLET PO SCH ×2 (15:04→20:08)
[2021-01-13] MEDS: traMADol HCL 50 MG TABLET PO PRN (15:08)
--- NOTE | 2021-01-13 18:04 | Hospitalist Progress Note ---
Date of Service January 13, 2021 Assessment & Plan (1) Recurrent syncope: Plan: Uncertain etiology, possibly related to dehydration as evidenced by IVCKY or electrolyte imbalance. Correcting these insult with fluids and potassium supplements, respectively. Also there is a question of a UTI which may have contributed. Hx of hypothyroidism on replacement with normal TSH. She is clearly overwhelmed in home environment and not sleeping well. Head and neck imaging unrevealing, no acute intracranial abnormality on CT scan. Echo pending, monitor on telemetry. (2) UTI (urinary tract infection): Plan: Cont empiric Rocephin pending urine culture and clinical improvement. (3) Hypokalemia: Plan: potassium replacement given today. Repeat lytes this evening and continue to replace as needed. Holding Lasix in setting of VICKY. (4) Contusion of scalp: Plan: supportive care, no acute intracranial abnormailty on CT imaging. Would have low threshold to repeat imaging as patient on anticoagulation. (5) Atrial fibrillation: Plan: chronic, on anticoagulation with warfarin. INR therapeutic. Rate controlled with metoprolol (6) H/O mitral valve replacement with mechanical valve: Plan: mechanical mitral valve, anticoagulated with warfarin. Goal INR 2.5-3.5 (7) DVT prophylaxis: Plan: warfarin Full Dispo-to home when medically cleared. Judith Villanueva DO [facility] Hospitalist Admission and Anticipated Discharge Date Admission Date: January 13, 2021 Subjective 65 yo F presented with recurrent syncope. She cannot describe syncopal events that occurred at least 3 times. She denies feeling any presyncopal prodrome and woke up on the floor lucid, uncertain of how she got there or how long she had been out. She was wearing her [employer] life alert during one fall which was what prompted EMS. 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 She reports not sleeping most nights including just 1 hr of sleep the night before admission and 3 hours the night before that. She appears overwhelmed and has little help. She refuses to place her mother in a home. She denies any chest pain, SOB K was low and she denies any GI symptoms, also reports that she has been eating well. Denies any recent med changes or other symptoms that she has noticed as abnormal. Review of Systems Review of Systems: All systems were reviewed and negative except as indicated in subjective above. Physical Exam Physical Exam: CONSTITUTIONAL: WNWD, vitals as above, generally well- appearing, NAD EYES: normal conjunctivae, no scleral icterus ENT: external ear and nose normal, MMM NECK: trachea midline RESPIRATORY: clear to auscultation bilaterally, no crackles, rales or wheezes, normal respiratory effort CARDIOVASCULAR: regular rate and rhythm, S1 and 2 heard without murmurs, audible click heard from mechanical valve. No gallops or rubs, no JVD, no per ipheral edema CHEST: inspection of chest was normal GASTROINTESTINAL: soft, nontender, ND, no guarding MUSCULOSKELETAL: strength 5/5 throughout, head is normocephalic and atraumatic SKIN: warm and dry NEUROLOGIC: CN 2-12 grossly intact, normal cognition, normal speech, no tremor. No gross focal deficits. PSYCHIATRIC: alert cooperative and oriented to person, place and time. Euthymic mood, makes good eye contact, language grossly intact, recent and remote memory grossly intact. Results & Data Results & Data ([facility]) Vital Signs (Past 12 Hours) Vital Signs Pulse Resp BP Pulse Ox 01/13/21 17:44 60 16 121/61 96 01/13/21 15:29 81 16 145/69 H 95 01/13/21 11:51 77 20 121/95 94 01/13/21 06:28 72 18 137/66 98 Laboratory Results Short CBC 01/13/21 Range/Units 03:12 WBC 6.70 (4.8-10.8) K/uL Hgb 12.2 (12.0-16.0) g/dL Hct 37.5 (37-47) % Plt Count 178 (130-400) K/uL BMP 01/13/21 03:12 Sodium 135 L Potassium 2.8 L Chloride 101 Carbon Dioxide 31 BUN 30 H Creatinine 2.22 H Glucose 141 H Calcium 9.7 Cardiac Enzymes 01/13/21 01/13/21 Range/Units 03:12 11:51 Troponin I < 0.015 < 0.015 (0-0.045) ng/ml Liver Function 01/13/21 Range/Units 03:12 Total Bilirubin 0.7 (0.2-1) mg/dl AST 52 H (15-37) U/L ALT 46 (12-78) U/L Alkaline Phosphatase 122 H (45-117) U/L Albumin 4.0 (3.4-5.0) gm/dl Urine 01/13/21 Range/Units 04:28 Urine Color Yellow Urine Appearance Clear (Clear) Urine pH 6.0 (4.5-7.5) Ur Specific Mckinney 1.017 (1.000-1.030) Urine Protein 2+ H (Negative) Urine Glucose (UA) Negative (Negative) Diagnostic Findings Chest X-Ray 01/13/21 03:01 XR chest 1V portable HISTORY: 65 years-old Female trauma acute chest trauma status post fall COMPARISON: Chest radiograph 10/15/2020 TECHNIQUE: Portable AP view the chest FINDINGS: Cardiac silhouette is enlarged. Prior median sternotomy with cardiac valvular prosthesis. No pneumothorax, pleural effusion, airspace consolidation or overt pulmonary edema. Degenerative changes of the shoulders and spine. IMPRESSION: Cardiomegaly without acute process. ACT 112: Negative or not required by law. The above report was generated using voice recognition software. It may contain grammatical, syntax or spelling errors. Electronically signed by: Gasper Scott M.D. 01/13/2021 7:15 AM Head CTA 01/13/21 03:01 CT angio neck with con, CT angio head w con CLINICAL HISTORY: 65 years-old Female with trauma, syncope. Acute head trauma with syncope COMPARISON STUDY: Head CT of same day, brain MRI 05/19/2018 TECHNIQUE: Following the IV administration of 120 mL of Optiray, CT angiogram of the head and neck was performed from the aortic arch to the skull apex. Images are reviewed in the axial, sagittal, and coronal planes. 3-D MIPS images are created and assessed. IV contrast was administered without complication. All measurements were calculated based on NASCET criteria. A dose lowering technique was utilized adhering to the principles of ALARA. FINDINGS: Three-vessel morphology of the thoracic aortic arch. Patency of the innominate and imaged subclavian arteries. The common and internal carotid arteries are patent. The anterior and middle cerebral arteries are widely patent. Codominant and patent vertebral arteries. The basilar and posterior cerebral arteries are patent. No aneurysm, dissection, high-grade stenosis or arterial occlusion. Cerebral venous sinuses are patent. There is no abnormal intracranial enhancement. Lung apices are clear without pneumothorax. Prior median sternotomy. No adenopathy. Degenerative changes of the cervical spine. IMPRESSION:Unremarkable CTA of the head and neck. ACT 112: Negative or not required by law. The above report was generated using voice recognition software. It may contain grammatical, syntax or spelling errors. Electronically signed by: Gasper Scott M.D. 01/13/2021 6:56 AM Neck CTA 01/13/21 03:01 CT angio neck with con, CT angio head w con CLINICAL HISTORY: 65 years-old Female with trauma, syncope. Acute head trauma with syncope COMPARISON STUDY: Head CT of same day, brain MRI 05/19/2018 TECHNIQUE: Following the IV administration of 120 mL of Optiray, CT angiogram of the head and neck was performed from the aortic arch to the skull apex. Images are reviewed in the axial, sagittal, and coronal planes. 3-D MIPS images are created and assessed. IV contrast was administered without complication. All measurements were calculated based on NASCET criteria. A dose lowering technique was utilized adhering to the principles of ALARA. FINDINGS: Three-vessel morphology of the thoracic aortic arch. Patency of the innominate and imaged subclavian arteries. The common and internal carotid arteries are patent. The anterior and middle cerebral arteries are widely patent. Codominant and patent vertebral arteries. The basilar and posterior cerebral arteries are patent. No aneurysm, dissection, high-grade stenosis or arterial occlusion. Cerebral venous sinuses are patent. There is no abnormal intracranial enhancement. Lung apices are clear without pneumothorax. Prior median sternotomy. No adenopathy. Degenerative changes of the cervical spine. IMPRESSION:Unremarkable CTA of the head and neck. ACT 112: Negative or not required by law. The above report was generated using voice recognition software. It may contain grammatical, syntax or spelling errors. Electronically signed by: Gasper Scott M.D. 01/13/2021 6:56 AM Pelvis X-Ray 01/13/21 03:01 XR pelvis 1-2V routine CLINICAL HISTORY: Fall. Right hip pain. COMPARISON STUDY: None. FINDINGS: No fracture or dislocation within the pelvis or hips. Mild osteoarthritis within the bilateral hips. The sacroiliac joints also demonstrate mild degenerative changes. Soft tissues are unremarkable. No radiopaque foreign bodies. IMPRESSION: No fracture or dislocation within the pelvis or hips. ACT 112: Negative or not required by law. Electronically signed by: Darshan Mosquera M.D. 01/13/2021 9:[address] 01/13/21 03:02 CT head/brain wo con CLINICAL HISTORY: 65 years-old Female with trauma, syncope. Acute syncope with head trauma TECHNIQUE: Multiple axial CT images of the head were obtained without contrast. A dose lowering technique was utilized adhering to the principles of ALARA. CT DOSE: 1030.77 mGy.cm COMPARISON: CTA head and neck of same day, head CT 05/18/2018 FINDINGS: No acute intracranial hemorrhage, midline shift, intracranial mass, hydrocephalus, territorial ischemia or abnormal extra-axial collection. Mild involutional changes. White matter hypodensities suggest chronic microvascular ischemic disease. The calvarium is intact. Small contusion of the right temporal parietal scalp on image 16. The paranasal sinuses, mastoid air cells, and middle ear cavities are clear. IMPRESSION: 1. No acute intracranial abnormality or calvarial fracture. 2. Small right temporal parietal scalp effusion. ACT 112: Negative or not required by law. The above report was generated using voice recognition software. It may contain grammatical, syntax or spelling errors. Electronically signed by: Gasper Scott M.D. 01/13/2021 6:43 AM Medications Administered Current Inpatient Medications Acetaminophen (Acetaminophen 325 Mg Tab) 650 mg PO Q4H PRN PRN Reason: Pain or Fever Stop: 02/12/21 11:33 Albuterol (Albuterol Hfa 8 Gm Inhaler) 2 puffs INH Q4R PRN PRN Reason: Shortness Of Breath Or Wheezing Stop: 02/12/21 11:33 Amitriptyline HCl (Amitriptyline Hcl 50 Mg Tab) 50 mg PO BID PRISCILA Stop: 02/12/21 11:59 Last Admin: 01/13/21 15:04 Dose: 50 mg Documented by: Dextrose (Dextrose 50% 50 Ml Syringe) 25 - 50 ml IV UD PRN; Protocol PRN Reason: Hypoglycemia Protocol Stop: 02/12/21 12:14 Ferrous Sulfate (Ferrous Sulfate 325 Mg Tab) 325 mg PO QAM PRISCILA Stop: 02/12/21 11:33 Last Admin: 01/13/21 15:04 Dose: 325 mg Documented by: Folic Acid (Folic Acid 1 Mg Tab) 1 mg PO QAM PRISCILA Stop: 02/12/21 11:59 Last Admin: 01/13/21 15:03 Dose: 1 mg Documented by: Glucagon (Glucagon For Inj 1 Mg Vial) 1 mg IM UD PRN; Protocol PRN Reason: Hypoglycemia Protocol Stop: 02/12/21 12:14 Glucose (Glucose 40% Gel 15 Gm Tube) 15 - 30 gm PO UD PRN; Protocol PRN Reason: Hypoglycemia Protocol Stop: 02/12/21 12:14 Glucose (Glucose 10 Tabs/Tube) 4 - 8 tabs PO UD PRN; Protocol PRN Reason: Hypoglycemia Protocol Stop: 02/12/21 12:14 Sodium Chloride (Nss 1000ml) 1,000 mls @ 75 mls/hr IV .[id number] [facility] Stop: 02/12/21 11:33 Last Admin: 01/13/21 15:04 Dose: 75 mls/hr Documented by: Ceftriaxone Sodium 1,000 mg/ (Dextrose) 50 mls @ 100 mls/hr IV Q24H PRISCILA; Protocol Stop: 01/23/21 11:59 Last Infusion: 01/13/21 15:46 Dose: Infused Documented by: Insulin Aspart (Insulin Aspart 100 Units/Ml 3 Ml Pen) 0 units SC ACHS PRISCILA Stop: 02/12/21 16:29 Levothyroxine Sodium (Levothyroxine Sodium 100 Mcg Tablet) 100 mcg PO DAILYBB PRISCILA Stop: 02/12/21 11:59 Last Admin: 01/13/21 15:03 Dose: 100 mcg Documented by: Magnesium Hydroxide (Magnesium Hydroxide Susp 30 Ml Udc) 5 ml PO DAILY PRN PRN Reason: Constipation Stop: 02/12/21 11:33 Metoprolol Tartrate (Metoprolol Tartrate 25 Mg Tab) 25 mg PO BID [facility] Stop: 02/12/21 11:59 Last Admin: 01/13/21 15:03 Dose: 25 mg Documented by: Miscellaneous (Carbohydrates For Hypoglycemia ) 15 - 30 gm PO UD PRN PRN Reason: Hypoglycemia Treatment Stop: 02/12/21 12:14 Nitroglycerin (Nitroglycerin Sl 0.4 Mg/Tab Tab) 0.4 mg SL UD PRN PRN Reason: Chest Pain Stop: 02/12/21 11:33 Pantoprazole Sodium (Pantoprazole 40 Mg Tab) 40 mg PO PM [facility] Stop: 02/12/21 20:59 Polyethylene Glycol (Polyethylene (Miralax) 17 Gm Pack) 17 gm PO DAILY PRN PRN Reason: Constipation Stop: 02/12/21 11:33 Ropinirole HCl (Ropinirole Hcl 2 Mg Tablet) 2 mg PO TID [facility] Stop: 02/12/21 12:59 Last Admin: 01/13/21 15:04 Dose: 2 mg Documented by: Rosuvastatin Calcium (Rosuvastatin Calcium 20 Mg Tab) 20 mg PO HS [facility] Stop: 02/12/21 20:59 Spironolactone (Spironolactone 12.5 Mg Tab) 12.5 mg PO DAILY [facility] Stop: 02/12/21 11:59 Last Admin: 01/13/21 15:04 Dose: Not Given Documented by: Tramadol HCl (Tramadol Hcl 50 Mg Tablet) 50 mg PO TID PRN PRN Reason: Pain not relieved by Tylenol Stop: 02/12/21 11:33 Last Admin: 01/13/21 15:08 Dose: 50 mg Documented by: Vitamin D (Cholecalciferol 1,000 Units 25 Mcg Tab) 1,000 units PO QAM [facility] Stop: 02/12/21 11:59 Last Admin: 01/13/21 15:03 Dose: 1,000 units Documented by: Warfarin Sodium (Warfarin Sod 5 Mg Tab) 5 mg PO DAILY@1600 [facility] Stop: 02/12/21 15:59 (1) Contusion of scalp Encounter type: initial encounter Qualified Code(s): S00.03XA - Contusion of scalp, initial encounter (2) Atrial fibrillation Atrial fibrillation type: unspecified Qualified Code(s): I48.91 - Unspecified atrial fibrillation
[2021-01-13] MEDS: INSULIN ASPART 100 UNITS/ML 3 ML PEN SC SCH ×2 (20:07→20:08)
[2021-01-13] MEDS: PANTOprazole 40 MG TAB PO SCH (20:08)
[2021-01-13] MEDS: WARFARIN SOD 5 MG TAB PO SCH (20:09)
[2021-01-13] MEDS: ROSUVASTATIN CALCIUM 20 MG TAB PO SCH (20:09)
[2021-01-13 21:56] LABS: BUN Creatinine Ratio 11.6 (10-20); Calcium 9.1 mg/dl (8.5-10.1); Creatinine Clr Calc Pharmacy 27.2 ml/min; Est GFR (African American) 33.2 ml/min; Est GFR (Non-African American) 28.6 ml/min; Magnesium 2.5 mg/dl (1.8-2.4); Potassium 3.3 mmol/L (3.5-5.1)
[2021-01-14] MEDS: traMADol HCL 50 MG TABLET PO PRN ×2 (00:16→20:35)
[2021-01-14 05:36] LABS: Basophils # (auto) 0.01 K/uL (0-0.2); Basophils % (auto) 0.2 %; Eosinophils # (auto) 0.19 K/uL (0-0.5); Eosinophils % (auto) 3.5 %; Hematocrit (blood only) 34.2 % (37-47); Hemoglobin 10.8 g/dL (12.0-16.0); Immature Granulocytes # (auto) 0.01 K/uL (0.00-0.02); Immature Granulocytes % (auto) 0.2 %; Lymphocytes # (auto) 0.97 K/uL (1.2-3.4); Mean Corpuscular Hemoglobin 27.6 pg (25-34); Mean Corpuscular Hgb Conc 31.6 g/dL (32-36); Mean Corpuscular Volume 87.2 fL (80-100); Mean Platelet Volume 10.9 fL (7.4-10.4); Monocytes # (auto) 0.49 K/uL (0.11-0.59); Monocytes % (auto) 9.1 %; Neutrophils # (auto) 3.72 K/uL (1.4-6.5); Platelet Count 139 K/uL (130-400); RDW Standard Deviation 51.5 fL (36.4-46.3); Red Blood Count 3.92 M/uL (4.2-5.4); White Blood Count 5.39 K/uL (4.8-10.8)
[2021-01-14] MEDS: LEVOTHYROXINE SODIUM 100 MCG TABLET PO SCH (05:42)
[2021-01-14 05:44] LABS: INR 2.7 (0.9-1.1); Prothrombin Time 25.7 Seconds (9.0-12.0)
[2021-01-14 06:18] LABS: BUN Creatinine Ratio 11.9 (10-20); Creatinine Clr Calc Pharmacy 26.8 ml/min; Est GFR (African American) 32.3 ml/min; Est GFR (Non-African American) 27.9 ml/min; Magnesium 2.7 mg/dl (1.8-2.4)
--- NOTE | 2021-01-14 07:33 | Electrocardiogram Report ---
Test Reason : Blood Pressure : / mmHG Vent. Rate : 067 BPM Atrial Rate : 066 BPM P-R Int : 000 ms QRS Dur : 110 ms QT Int : 448 ms P-R-T Axes : 000 -44 066 degrees QTc Int : 473 ms Atrial fibrillation Left axis deviation Nonspecific ST and T wave abnormality Abnormal ECG When compared with ECG of 13-JAN-2021 02:48, No significant change was found Confirmed by Abbe Bates ([id number]) on 01/14/2021 7:33:46 AM Referred By: REFERRED SELF Confirmed By:Saiqb Bates
[2021-01-14 07:34] LABS: Estimated Average Glucose 160 mg/dl; Hemoglobin A1C 7.2 % (4.5-5.6)
[2021-01-14] MEDS: CHOLECALCIFEROL 1,000 UNITS 25 MCG TAB PO SCH (08:11)
[2021-01-14] MEDS: FOLIC ACID 1 MG TAB PO SCH (08:11)
[2021-01-14] MEDS: METOPROLOL TARTRATE 25 MG TAB PO SCH ×2 (08:11→20:37)
[2021-01-14] MEDS: rOPINIRole HCL 2 MG TABLET PO SCH ×3 (08:11→20:37)
[2021-01-14] MEDS: FERROUS SULFATE 325 MG TAB PO SCH (08:12)
[2021-01-14] MEDS: AMITRIPTYLINE HCL 50 MG TAB PO SCH ×2 (08:13→20:37)
[2021-01-14] MEDS: SODIUM CHLORIDE 0.9% 1000ML 1,000 ML IV SCH ×2 (08:13→20:41)
[2021-01-14] MEDS: INSULIN ASPART 100 UNITS/ML 3 ML PEN SC SCH ×4 (08:14→21:57)
--- NOTE | 2021-01-14 09:01 | Cardiology Consultation ---
Date of Consultation January 14, 2021 Assessment & Plan (1) Mechanical heart valve present: (2) Atrial fibrillation: (3) Syncope: From a cardiac standpoint I believe the patient is stable. She has chronic atrial fibrillation and about 5 or 6 years ago she had a syncopal event and there was some consideration regarding tachybradycardia syndrome. She has had no recent symptoms. She is caring for her elderly mother at home which is created some amount of stress and it may be helpful if she considers placement if possible. Ultimately based on her history, chronic atrial fibrillation and echocardiographic findings, she will most likely in the future require pacemaker. I would recommend that the patient be discharged to outpatient follow-up. As an outpatient she should have a long-term event monitor or possibly an implanted loop recorder. After discharge we can take care of that through our clinic. History of Present Illness Attending Physician: Kristin Mcwilliams MD History of Present Illness This is a 65-year-old female with a history as outlined below. She was in her usual state of health. She has been caring for her elderly there who has advanced problems. On the patient had several episodes which are most likely consistent with syncope. The third episode she had bumped her head and decided to come into the hospital. After admission to the hospital her cardiac markers are negative. EKG reveal atrial fibrillation which is chronic. Echocardiogram shows her prosthetic valve in the mitral position to be functi oning appropriately. Left and right ventricular systolic function are normal. She does have severe dilatation of both the left and right atrium. Since admission her heart rhythms have been stable with appropriate heart rates on telemetry. She has had no dizziness or lightheadedness since her hospital admission. Past medical history: 1. Rheumatic valvular heart disease, status post mitral valve replacement with a mechanical [employer] prosthesis in 1993. 2. Chronic atrial fibrillation with borderline tachy Chris syndrome 3. Past embolic myocardial infarction and TIA, on chronic anticoagulation plus antiplatelet therapy with clopidogrel. 4. Type 2 diabetes mellitus. 5. Hyperlipidemia. 6. Chronic renal insufficiency. 7. Acute COVID infection 10/14/2020 treated with monoclonal antibodies as an outpatient Allergies Allergy/AdvReac Type Severity Reaction Status Date / Time hydroxyzine Allergy Severe DYSTONIA Verified 01/13/21 06:56 prochlorperazine Allergy Severe NUCHAL Verified 01/13/21 06:56 DYSTONIA promethazine Allergy Severe NUCHAL Verified 01/13/21 06:56 DYSTONIA oxycodone Allergy Intermediate Numbness Verified 01/13/21 06:56 PERRY Inhibitors AdvReac Intermediate COUGH Verified 01/13/21 06:56 lisinopril AdvReac Intermediate Cough Verified 01/13/21 06:56 metformin AdvReac Intermediate DIARRHEA Verified 01/13/21 06:56 parsley AdvReac Intermediate AGITATION Verified 01/13/21 06:56 tetracycline AdvReac Intermediate DYSPEPSIA Verified 01/13/21 06:56 gabapentin AdvReac Drowsy Verified 01/13/21 06:56 NAUSEA MEDICINES Allergy Unknown SEE NOTE Uncoded 01/13/21 06:56 BELOW Home Medications Medication Instructions Recorded Confirmed Type cholecalciferol (vitamin D3) 25 1,000 unit PO QAM 12/05/17 01/13/21 History mcg (1,000 unit) capsule (Vitamin D3) nitroglycerin 0.4 mg sublingual 0.4 mg SUBLINGUAL DIRECTED PRN 12/05/17 01/13/21 History tablet (Nitrostat) omeprazole 20 mg capsule,delayed 20 mg PO PM 12/05/17 01/13/21 History release furosemide 40 mg tablet 80 mg PO MOWEFRSA 05/18/18 01/13/21 History levothyroxine 100 mcg tablet 100 mcg PO QAM 05/18/18 01/13/21 History folic acid 1 mg tablet 1 mg PO QAM #30 tab 05/21/18 01/13/21 Rx amitriptyline 25 mg tablet 50 mg PO BID 10/08/18 01/13/21 History metoprolol tartrate 25 mg tablet 25 mg PO BID #60 tab 10/08/18 01/13/21 Rx ropinirole 2 mg tablet 2 mg PO TID 10/08/18 01/13/21 History warfarin 5 mg tablet 5 mg PO DAILY 10/22/18 01/13/21 History acetaminophen 500 mg tablet 500 mg PO Q6H PRN 12/31/19 01/13/21 History (Tylenol Extra Strength) lidocaine HCl 4 % (40 mg/mL) 1 applic PO DIRECTED PRN 12/31/19 01/13/21 History mucosal solution magnesium hydroxide 400 mg/5 mL 5 ml PO DAILY PRN 12/31/19 01/13/21 History oral suspension (Milk of Magnesia) spironolactone 25 mg tablet 12.5 mg PO DAILY 12/31/19 01/13/21 History tramadol 50 mg tablet 50 mg PO TID PRN 12/31/19 01/13/21 History furosemide 40 mg tablet 40 mg PO SUTUTH 10/15/20 01/13/21 History rosuvastatin 20 mg tablet 20 mg PO HS 10/15/20 01/13/21 History ferrous sulfate 142 mg (45 mg 45 mg PO QAM 01/13/21 01/13/21 History iron) tablet,extended release (Slow Fe) Patient History Medical History A-fib Anemia chronic; baseline hgb 9-10 range per chart review Anxiety CKD (chronic kidney disease), stage III Diabetes diet controlled GERD (gastroesophageal reflux disease) controlled History of blood transfusion autologous s/p MVR (1993), 09/2018 (post-op) HTN (hypertension) Hx of myocardial infarction 2000, medical management Hyperlipidemia Hypothyroidism Migraines 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 migraine vs. stress related)-- plavix since discontinued Surgical History H/O radioactive iodine thyroid ablation H/O: hysterectomy History of cardiac cath 2000= NO STENTS History of colonoscopy History of tonsillectomy and adenoidectomy History of total left knee replacement Hx of appendectomy Hx of cholecystectomy Hx of mitral valve replacement 1993 (rheumatic valvular disease) Hx of tubal ligation Family History Uncle , of [place] in his 40s Coronary heart disease Social History Smoking Status: Never smoker Second Hand Exposure: No; Hx Alcohol Use: Yes Alcohol type: wine Hx Substance Use: No Preferred Language: Bahraini Communication Ability: Effective Boxer Operator Required: No Beliefs That Will Affect Care: Anabaptist Anabaptist Beliefs: Anabaptism marital status: Single Current Living Situation: Family Current Living Situation Comment: takes care of mother current occupational status: disabled How many Children do You have: 0 Other Information That Helps Us Care for You: No Feels Safe at Home: Yes Safety Concerns: Feels Safe At This Time Assistive Devices: Cane Review of Systems Review of Systems: Review of Systems: See HPI for pertinent positives. All other 10 point review of systems are negative. Physical Exam Physical Exam: General: no acute distress and stated age Head: normocephalic, no masses, lesions, tenderness or abnormalities Eyes: conjunctiva are pink and non-injected, sclera clear Neck: supple, no adenopathy, no bruits, normal jugular venous pulse, no hepatojugular reflux Chest: normal shape and normal respiratory effort Lungs: clear to auscultation and percussion Cardiac Exam: - irregular rate & rhythm, no murmurs gallops or rubs - normal S1, normal S2 Pulses: 2(+) throughout Abdomen: abdomen soft, non-tender, no abnormal masses and no hepatosplenomegaly Musculoskeletal: no gait disturbance, no joint inflammation, no deforming arthritis Extremities: no edema and no cyanosis Neuro: grossly normal exam Results & Data ([facility]) Vital Signs (Past 12 Hours) Vital Signs Temp Pulse Resp BP Pulse Ox 01/14/21 08:00 36.8 C 80 16 103/63 95 01/14/21 02:45 95 01/14/21 00:19 36.3 C L 67 20 119/68 97 Laboratory Results Laboratory Results - last 24 hr 01/13/21 01/13/21 01/13/21 17:47 17:49 19:30 WBC RBC Hgb Hct MCV MCH MCHC RDW Std Deviation RDW Coeff of Courtney Plt Count MPV Immature Gran % (Auto) Neut % (Auto) Lymph % (Auto) [place] % (Auto) Eos % (Auto) Baso % (Auto) Neut # (Auto) Lymph # (Auto) [place] # (Auto) Eos # (Auto) Baso # (Auto) Immature Gran # (Auto) PT INR Sodium Potassium Chloride Carbon Dioxide Anion Gap BUN Creatinine Est Cr Clr Drug Dosing Est GFR ( Amer) Est GFR (Non-Af Amer) BUN/Creatinine Ratio Glucose POC Glucose 144 H 91 Estimat Average Glucose Hemoglobin A1c Calcium Magnesium Troponin I < 0.015 Hepatitis C Ab Screen 11/26/21 11/26/21 11/27/21 21:06 21:17 05:08 WBC RBC Hgb Hct MCV MCH MCHC RDW Std Deviation RDW Coeff of Courtney Plt Count MPV Immature Gran % (Auto) Neut % (Auto) Lymph % (Auto) [place] % (Auto) Eos % (Auto) Baso % (Auto) Neut # (Auto) Lymph # (Auto) [place] # (Auto) Eos # (Auto) Baso # (Auto) Immature Gran # (Auto) PT INR Sodium 138 Potassium 3.3 L D Chloride 106 Carbon Dioxide 24 Anion Gap 8.0 BUN 21 H Creatinine 1.80 H D Est Cr Clr Drug Dosing 27.2 Est GFR ( Amer) 33.2 Est GFR (Non-Af Amer) 28.6 BUN/Creatinine Ratio 11.6 Glucose 124 H POC Glucose Estimat Average Glucose 160 Hemoglobin A1c 7.2 H Calcium 9.1 Magnesium 2.5 H Troponin I Hepatitis C Ab Screen Neg 01/14/21 01/14/21 01/14/21 05:08 05:08 05:08 WBC 5.39 RBC 3.92 L Hgb 10.8 L Hct 34.2 L MCV 87.2 MCH 27.6 MCHC 31.6 L RDW Std Deviation 51.5 H RDW Coeff of Courtney 16.0 H Plt Count 139 MPV 10.9 H Immature Gran % (Auto) 0.2 Neut % (Auto) 69.0 Lymph % (Auto) 18.0 [place] % (Auto) 9.1 Eos % (Auto) 3.5 Baso % (Auto) 0.2 Neut # (Auto) 3.72 Lymph # (Auto) 0.97 L [place] # (Auto) 0.49 Eos # (Auto) 0.19 Baso # (Auto) 0.01 Immature Gran # (Auto) 0.01 PT 25.7 H INR 2.7 H Sodium 137 Potassium 4.0 D Chloride 109 H Carbon Dioxide 25 Anion Gap 3.0 BUN 22 H Creatinine 1.84 H Est Cr Clr Drug Dosing 26.8 Est GFR ( Amer) 32.3 Est GFR (Non-Af Amer) 27.9 BUN/Creatinine Ratio 11.9 Glucose 127 H POC Glucose Estimat Average Glucose Hemoglobin A1c Calcium 9.0 Magnesium 2.7 H Troponin I Hepatitis C Ab Screen 01/14/21 01/14/21 07:41 11:39 WBC RBC Hgb Hct MCV MCH MCHC RDW Std Deviation RDW Coeff of Courtney Plt Count MPV Immature Gran % (Auto) Neut % (Auto) Lymph % (Auto) [place] % (Auto) Eos % (Auto) Baso % (Auto) Neut # (Auto) Lymph # (Auto) [place] # (Auto) Eos # (Auto) Baso # (Auto) Immature Gran # (Auto) PT INR Sodium Potassium Chloride Carbon Dioxide Anion Gap BUN Creatinine Est Cr Clr Drug Dosing Est GFR ( Amer) Est GFR (Non-Af Amer) BUN/Creatinine Ratio Glucose POC Glucose 104 H 115 H Estimat Average Glucose Hemoglobin A1c Calcium Magnesium Troponin I Hepatitis C Ab Screen Medications Administered Current Inpatient Medications Acetaminophen (Acetaminophen 325 Mg Tab) 650 mg PO Q4H PRN PRN Reason: Pain or Fever Stop: 02/12/21 11:33 Last Admin: 01/13/21 20:16 Dose: 650 mg Documented by: Albuterol (Albuterol Hfa 8 Gm Inhaler) 2 puffs INH Q4R PRN PRN Reason: Shortness Of Breath Or Wheezing Stop: 02/12/21 11:33 Amitriptyline HCl (Amitriptyline Hcl 50 Mg Tab) 50 mg PO BID [facility] Stop: 02/12/21 11:59 Last Admin: 01/14/21 08:13 Dose: 50 mg Documented by: Dextrose (Dextrose 50% 50 Ml Syringe) 25 - 50 ml IV UD PRN; Protocol PRN Reason: Hypoglycemia Protocol Stop: 02/12/21 12:14 Ferrous Sulfate (Ferrous Sulfate 325 Mg Tab) 325 mg PO QAM PRISCILA Stop: 02/12/21 11:33 Last Admin: 01/14/21 08:12 Dose: 325 mg Documented by: Folic Acid (Folic Acid 1 Mg Tab) 1 mg PO QAM PRISCILA Stop: 02/12/21 11:59 Last Admin: 01/14/21 08:11 Dose: 1 mg Documented by: Glucagon (Glucagon For Inj 1 Mg Vial) 1 mg IM UD PRN; Protocol PRN Reason: Hypoglycemia Protocol Stop: 02/12/21 12:14 Glucose (Glucose 40% Gel 15 Gm Tube) 15 - 30 gm PO UD PRN; Protocol PRN Reason: Hypoglycemia Protocol Stop: 02/12/21 12:14 Glucose (Glucose 10 Tabs/Tube) 4 - 8 tabs PO UD PRN; Protocol PRN Reason: Hypoglycemia Protocol Stop: 02/12/21 12:14 Sodium Chloride (Nss 1000ml) 1,000 mls @ 75 mls/hr IV .[id number] [facility] Stop: 02/12/21 11:33 Last Admin: 01/14/21 08:13 Dose: 75 mls/hr Documented by: Ceftriaxone Sodium 1,000 mg/ (Dextrose) 50 mls @ 100 mls/hr IV Q24H [facility]; Protocol Stop: 01/23/21 11:59 Last Infusion: 01/13/21 15:46 Dose: Infused Documented by: Insulin Aspart (Insulin Aspart 100 Units/Ml 3 Ml Pen) 0 units SC ACHS PRISCILA Stop: 02/12/21 16:29 Last Admin: 01/14/21 08:14 Dose: Not Given Documented by: Levothyroxine Sodium (Levothyroxine Sodium 100 Mcg Tablet) 100 mcg PO DAILYBB [facility] Stop: 02/12/21 11:59 Last Admin: 01/14/21 05:42 Dose: 100 mcg Documented by: Magnesium Hydroxide (Magnesium Hydroxide Susp 30 Ml Udc) 5 ml PO DAILY PRN PRN Reason: Constipation Stop: 02/12/21 11:33 Metoprolol Tartrate (Metoprolol Tartrate 25 Mg Tab) 25 mg PO BID [facility] Stop: 02/12/21 11:59 Last Admin: 01/14/21 08:11 Dose: 25 mg Documented by: Miscellaneous (Carbohydrates For Hypoglycemia ) 15 - 30 gm PO UD PRN PRN Reason: Hypoglycemia Treatment Stop: 02/12/21 12:14 Nitroglycerin (Nitroglycerin Sl 0.4 Mg/Tab Tab) 0.4 mg SL UD PRN PRN Reason: Chest Pain Stop: 02/12/21 11:33 Pantoprazole Sodium (Pantoprazole 40 Mg Tab) 40 mg PO PM PRISCILA Stop: 02/12/21 20:59 Last Admin: 01/13/21 20:08 Dose: 40 mg Documented by: Polyethylene Glycol (Polyethylene (Miralax) 17 Gm Pack) 17 gm PO DAILY PRN PRN Reason: Constipation Stop: 02/12/21 11:33 Ropinirole HCl (Ropinirole Hcl 2 Mg Tablet) 2 mg PO TID PRISC[facility] Stop: 02/12/21 12:59 Last Admin: 01/14/21 08:11 Dose: 2 mg Documented by: Rosuvastatin Calcium (Rosuvastatin Calcium 20 Mg Tab) 20 mg PO HS [facility] Stop: 02/12/21 20:59 Last Admin: 01/13/21 20:09 Dose: 20 mg Documented by: Spironolactone (Spironolactone 12.5 Mg Tab) 12.5 mg PO DAILY [facility] Stop: 02/12/21 11:59 Last Admin: 01/13/21 15:04 Dose: Not Given Documented by: Tramadol HCl (Tramadol Hcl 50 Mg Tablet) 50 mg PO TID PRN PRN Reason: Pain not relieved by Tylenol Stop: 02/12/21 11:33 Last Admin: 01/14/21 00:16 Dose: 50 mg Documented by: Vitamin D (Cholecalciferol 1,000 Units 25 Mcg Tab) 1,000 units PO QAM [facility] Stop: 02/12/21 11:59 Last Admin: 01/14/21 08:11 Dose: 1,000 units Documented by: Warfarin Sodium (Warfarin Sod 5 Mg Tab) 5 mg PO DAILY@1600 [facility] Stop: 02/12/21 15:59 Last Admin: 01/13/21 20:09 Dose: 5 mg Documented by: (1) Atrial fibrillation Atrial fibrillation type: unspecified Qualified Code(s): I48.91 - Unspecified atrial fibrillation
[2021-01-14] MEDS: cefTRIAXone SODIUM 1,000 MG in DEXTROSE 5% 50 ML IV SCH (12:10)
--- NOTE | 2021-01-14 13:01 | Hospitalist Progress Note ---
Date of Service January 14, 2021 Assessment & Plan (1) Recurrent syncope: Plan: Uncertain etiology, possibly related to dehydration as evidenced by VICKY or electrolyte imbalance. She is clearly overwhelmed in home environment and not sleeping well. 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 No esterase or nitrite Cont empiric Rocephin pending urine culture (3) Hypokalemia: Plan: Repleted K is 4 today Lasix on hold (4) Contusion of scalp: Plan: No acute intracranial abnormailty on CT imaging. Tylenol prn Monitor (5) Atrial fibrillation: Plan: chronic, on anticoagulation with warfarin. INR therapeutic. Rate controlled with metoprolol (6) H/O mitral valve replacement with mechanical valve: Plan: Mechanical mitral valve, anticoagulated with warfarin. Goal INR 2.5-3.5 (7) DVT prophylaxis: Plan: warfarin Full Admission and Anticipated Discharge Date Admission Date: January 13, 2021 Subjective 65 yo F presented with recurrent syncopal episodes at home. She does not recall the fall and only remember waking up on the floor. She was wearing her mothers life alert during one fall which was what prompted EMS. 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 She reports not sleeping most nights including just 1 hr of sleep the night before admission and 3 hours the night before that. She appears overwhelmed and has little help. She refuses to place her mother in a home. She reports that she had some syncopal episodes over a year ago that was due to some medications which were adjusted but has not had any episodes since Patient seen and examined today. Currently denies any chest pain, palpitation, shortness of breath, cough. Reports only mild pain on the right side of her head where she hit the ground. Denies any fever, chills, nausea, vomiting Denies any dysuria, frequency, urgency Physical Exam Constitutional: + well hydrated; no acute distress Eyes: PERRL, conjunctivae normal, anicteric sclerae ENMT: external ear and nose normal, oropharynx normal Respiratory: normal respiratory effort, lungs clear to auscultation Cardiovascular: Rate/Rhythm: + irregularly irregular S1-S2 Gastrointestinal (Abdomen): normal bowel sounds, soft, nontender, no hepatosplenomegaly Musculoskeletal: No pedal edema Neurologic: PERRL, EOMI, accommodation nl, no face palsy, no dysarthria Psychiatric: A+Ox3, euthymic affect Results & Data Results & Data ([facility]) Vital Signs (Past 12 Hours) Vital Signs Temp Pulse Resp BP Pulse Ox 01/14/21 11:00 36.8 C 63 20 115/63 98 01/14/21 08:00 36.8 C 80 16 103/63 95 01/14/21 02:45 95 Laboratory Results Abnormal lab results 01/13/21 01/13/21 01/14/21 Range/Units 17:49 21:06 05:08 RBC (4.2-5.4) M/uL Hgb (12.0-16.0) g/dL Hct (37-47) % MCHC (32-36) g/dL RDW Std Deviation (36.4-46.3) fL RDW Coeff of Courtney (11.5-14.5) % MPV (7.4-10.4) fL Lymph # (Auto) (1.2-3.4) K/uL PT (9.0-12.0) Seconds INR (0.9-1.1) Potassium 3.3 L D (3.5-5.1) mmol/L Chloride (98-107) mmol/L BUN 21 H (7-18) mg/dl Creatinine 1.80 H D (0.6-1.2) mg/dl Glucose 124 H (70-99) mg/dl POC Glucose 144 H (70-99) mg/dl Hemoglobin A1c 7.2 H (4.5-5.6) % Magnesium 2.5 H (1.8-2.4) mg/dl 01/14/21 01/14/21 01/14/21 Range/Units 05:08 05:08 05:08 RBC 3.92 L (4.2-5.4) M/uL Hgb 10.8 L (12.0-16.0) g/dL Hct 34.2 L (37-47) % MCHC 31.6 L (32-36) g/dL RDW Std Deviation 51.5 H (36.4-46.3) fL RDW Coeff of Courtney 16.0 H (11.5-14.5) % MPV 10.9 H (7.4-10.4) fL Lymph # (Auto) 0.97 L (1.2-3.4) K/uL PT 25.7 H (9.0-12.0) Seconds INR 2.7 H (0.9-1.1) Potassium (3.5-5.1) mmol/L Chloride 109 H (98-107) mmol/L BUN 22 H (7-18) mg/dl Creatinine 1.84 H (0.6-1.2) mg/dl Glucose 127 H (70-99) mg/dl POC Glucose (70-99) mg/dl Hemoglobin A1c (4.5-5.6) % Magnesium 2.7 H (1.8-2.4) mg/dl 01/14/21 01/14/21 Range/Units 07:41 11:39 RBC (4.2-5.4) M/uL Hgb (12.0-16.0) g/dL Hct (37-47) % MCHC (32-36) g/dL RDW Std Deviation (36.4-46.3) fL RDW Coeff of Courtney (11.5-14.5) % MPV (7.4-10.4) fL Lymph # (Auto) (1.2-3.4) K/uL PT (9.0-12.0) Seconds INR (0.9-1.1) Potassium (3.5-5.1) mmol/L Chloride (98-107) mmol/L BUN (7-18) mg/dl Creatinine (0.6-1.2) mg/dl Glucose (70-99) mg/dl POC Glucose 104 H 115 H (70-99) mg/dl Hemoglobin A1c (4.5-5.6) % Magnesium (1.8-2.4) mg/dl (1) Atrial fibrillation Atrial fibrillation type: unspecified Qualified Code(s): I48.91 - Unspecified atrial fibrillation (2) Contusion of scalp Encounter type: initial encounter Qualified Code(s): S00.03XA - Contusion of scalp, initial encounter
[2021-01-14] MEDS: WARFARIN SOD 5 MG TAB PO SCH (16:15)
[2021-01-14] MEDS: PANTOprazole 40 MG TAB PO SCH (20:37)
[2021-01-14] MEDS: ROSUVASTATIN CALCIUM 20 MG TAB PO SCH (20:37)
[2021-01-15] MEDS: traMADol HCL 50 MG TABLET PO PRN (02:23)
[2021-01-15] MEDS: SODIUM CHLORIDE 0.9% 1000ML 1,000 ML IV SCH (03:44)
[2021-01-15] MEDS: LEVOTHYROXINE SODIUM 100 MCG TABLET PO SCH (06:16)
[2021-01-15 07:02] LABS: INR 3.2 (0.9-1.1)
[2021-01-15 07:09] LABS: BUN Creatinine Ratio 10.8 (10-20); Calcium 8.9 mg/dl (8.5-10.1); Creatinine Clr Calc Pharmacy 31.9 ml/min; Est GFR (African American) 38.8 ml/min; Est GFR (Non-African American) 33.5 ml/min; Potassium 3.9 mmol/L (3.5-5.1)
--- NOTE | 2021-01-15 07:25 | Electrocardiogram Report ---
Test Reason : Blood Pressure : / mmHG Vent. Rate : 061 BPM Atrial Rate : 340 BPM P-R Int : 000 ms QRS Dur : 104 ms QT Int : 410 ms P-R-T Axes : 000 -60 117 degrees QTc Int : 412 ms Atrial fibrillation Left anterior fascicular block Nonspecific ST and T wave abnormality Abnormal ECG When compared with ECG of 14-JAN-2021 05:55, QT has shortened Confirmed by Abbe Bates ([id number]) on 01/15/2021 7:24:44 AM Referred By: REFERRED SELF Confirmed By:Saqib Bates
[2021-01-15] MEDS: rOPINIRole HCL 2 MG TABLET PO SCH ×2 (08:13→13:23)
[2021-01-15] MEDS: AMITRIPTYLINE HCL 50 MG TAB PO SCH (08:13)
[2021-01-15] MEDS: FERROUS SULFATE 325 MG TAB PO SCH (08:14)
[2021-01-15] MEDS: FOLIC ACID 1 MG TAB PO SCH (08:14)
[2021-01-15] MEDS: CHOLECALCIFEROL 1,000 UNITS 25 MCG TAB PO SCH (08:14)
[2021-01-15] MEDS: METOPROLOL TARTRATE 25 MG TAB PO SCH (08:14)
[2021-01-15] MEDS: INSULIN ASPART 100 UNITS/ML 3 ML PEN SC SCH ×2 (08:14→11:39)
[2021-01-15] MEDS: cefTRIAXone SODIUM 1,000 MG in DEXTROSE 5% 50 ML IV SCH (11:40)
--- NOTE | 2021-01-15 12:43 | Cardiology Progress Note ---
Date of Service January 15, 2021 Assessment & Plan (1) Mechanical heart valve present: (2) Atrial fibrillation: (3) Syncope: Plan: The patient has not had any significant heart pauses or bradycardic events or other arrhythmias other than atrial fibrillation for the past 24 hours. I think she can be discharged home from a cardiac standpoint. I will arrange an outpatient monitor for her. Admission and Anticipated Discharge Date Admission Date: January 13, 2021 Subjective Patient has no complaints today and feels well. Review of Systems Review of Systems: Review of Systems: See HPI for pertinent positives. All other 10 point review of systems are negative. Physical Exam Physical Exam: General: no acute distress and stated age Head: normocephalic, no masses, lesions, tenderness or abnormalities Eyes: conjunctiva are pink and non-injected, sclera clear Neck: supple, no adenopathy, no bruits, normal jugular venous pulse, no hepatojugular reflux Chest: normal shape and normal respiratory effort Lungs: clear to auscultation and percussion Cardiac Exam: - irregular rate & rhythm, no murmurs gallops or rubs -mechanical S1, normal S2 Pulses: 2(+) throughout Abdomen: abdomen soft, non-tender, no abnormal masses and no hepatosplenomegaly Musculoskeletal: no gait disturbance, no joint inflammation, no deforming arthritis Extremities: no edema and no cyanosis Neuro: grossly normal exam Results & Data ([facility]) Vital Signs (Past 12 Hours) Vital Signs Temp Pulse Pulse Resp BP Pulse Ox 01/15/21 11:58 37.3 C 63 18 111/65 98 01/15/21 10:16 75 01/15/21 08:26 37.1 C 81 18 130/71 95 01/15/21 05:00 75 01/15/21 04:11 36.8 C 68 20 109/63 96 Laboratory Results Laboratory Results - last 24 hr 01/14/21 01/14/21 01/15/21 16:17 20:31 06:15 PT 30.0 H INR 3.2 H Sodium Potassium Chloride Carbon Dioxide Anion Gap BUN Creatinine Est Cr Clr Drug Dosing Est GFR ( Amer) Est GFR (Non-Af Amer) BUN/Creatinine Ratio Glucose POC Glucose 119 H 188 H Calcium 01/15/21 01/15/21 01/15/21 06:15 07:37 11:36 PT INR Sodium 139 Potassium 3.9 Chloride 111 H Carbon Dioxide 23 Anion Gap 5.0 BUN 17 Creatinine 1.58 H Est Cr Clr Drug Dosing 31.9 Est GFR ( Amer) 38.8 Est GFR (Non-Af Amer) 33.5 BUN/Creatinine Ratio 10.8 Glucose 105 H POC Glucose 103 H 106 H Calcium 8.9 Medications Administered Current Inpatient Medications Acetaminophen (Acetaminophen 325 Mg Tab) 650 mg PO Q4H PRN PRN Reason: Pain or Fever Stop: 02/12/21 11:33 Last Admin: 01/13/21 20:16 Dose: 650 mg Documented by: Albuterol (Albuterol Hfa 8 Gm Inhaler) 2 puffs INH Q4R PRN PRN Reason: Shortness Of Breath Or Wheezing Stop: 02/12/21 11:33 Amitriptyline HCl (Amitriptyline Hcl 50 Mg Tab) 50 mg PO BID [facility] Stop: 02/12/21 11:59 Last Admin: 01/15/21 08:13 Dose: 50 mg Documented by: Dextrose (Dextrose 50% 50 Ml Syringe) 25 - 50 ml IV UD PRN; Protocol PRN Reason: Hypoglycemia Protocol Stop: 02/12/21 12:14 Ferrous Sulfate (Ferrous Sulfate 325 Mg Tab) 325 mg PO QAM [facility] Stop: 02/12/21 11:33 Last Admin: 01/15/21 08:14 Dose: 325 mg Documented by: Folic Acid (Folic Acid 1 Mg Tab) 1 mg PO QAM [facility] Stop: 02/12/21 11:59 Last Admin: 01/15/21 08:14 Dose: 1 mg Documented by: Glucagon (Glucagon For Inj 1 Mg Vial) 1 mg IM UD PRN; Protocol PRN Reason: Hypoglycemia Protocol Stop: 02/12/21 12:14 Glucose (Glucose 40% Gel 15 Gm Tube) 15 - 30 gm PO UD PRN; Protocol PRN Reason: Hypoglycemia Protocol Stop: 02/12/21 12:14 Glucose (Glucose 10 Tabs/Tube) 4 - 8 tabs PO UD PRN; Protocol PRN Reason: Hypoglycemia Protocol Stop: 02/12/21 12:14 Sodium Chloride (Nss 1000ml) 1,000 mls @ 75 mls/hr IV .[id number] [facility] Stop: 02/12/21 11:33 Last Admin: 01/15/21 03:44 Dose: 75 mls/hr Documented by: Ceftriaxone Sodium 1,000 mg/ (Dextrose) 50 mls @ 100 mls/hr IV Q24H [facility]; Protocol Stop: 01/23/21 11:59 Last Infusion: 01/15/21 12:10 Dose: Infused Documented by: Insulin Aspart (Insulin Aspart 100 Units/Ml 3 Ml Pen) 0 units SC ACHS [facility] Stop: 02/12/21 16:29 Last Admin: 01/15/21 11:39 Dose: Not Given Documented by: Levothyroxine Sodium (Levothyroxine Sodium 100 Mcg Tablet) 100 mcg PO DAILYBB [facility] Stop: 02/12/21 11:59 Last Admin: 01/15/21 06:16 Dose: 100 mcg Documented by: Magnesium Hydroxide (Magnesium Hydroxide Susp 30 Ml Udc) 5 ml PO DAILY PRN PRN Reason: Constipation Stop: 02/12/21 11:33 Metoprolol Tartrate (Metoprolol Tartrate 25 Mg Tab) 25 mg PO BID [facility] Stop: 02/12/21 11:59 Last Admin: 01/15/21 08:14 Dose: 25 mg Documented by: Miscellaneous (Carbohydrates For Hypoglycemia ) 15 - 30 gm PO UD PRN PRN Reason: Hypoglycemia Treatment Stop: 02/12/21 12:14 Nitroglycerin (Nitroglycerin Sl 0.4 Mg/Tab Tab) 0.4 mg SL UD PRN PRN Reason: Chest Pain Stop: 02/12/21 11:33 Pantoprazole Sodium (Pantoprazole 40 Mg Tab) 40 mg PO PM [facility] Stop: 02/12/21 20:59 Last Admin: 01/14/21 20:37 Dose: 40 mg Documented by: Polyethylene Glycol (Polyethylene (Miralax) 17 Gm Pack) 17 gm PO DAILY PRN PRN Reason: Constipation Stop: 02/12/21 11:33 Ropinirole HCl (Ropinirole Hcl 2 Mg Tablet) 2 mg PO TID [facility] Stop: 02/12/21 12:59 Last Admin: 01/15/21 08:13 Dose: 2 mg Documented by: Rosuvastatin Calcium (Rosuvastatin Calcium 20 Mg Tab) 20 mg PO HS [facility] Stop: 02/12/21 20:59 Last Admin: 01/14/21 20:37 Dose: 20 mg Documented by: Spironolactone (Spironolactone 12.5 Mg Tab) 12.5 mg PO DAILY [facility] Stop: 02/12/21 11:59 Last Admin: 01/13/21 15:04 Dose: Not Given Documented by: Tramadol HCl (Tramadol Hcl 50 Mg Tablet) 50 mg PO TID PRN PRN Reason: Pain not relieved by Tylenol Stop: 02/12/21 11:33 Last Admin: 01/15/21 02:23 Dose: 50 mg Documented by: Vitamin D (Cholecalciferol 1,000 Units 25 Mcg Tab) 1,000 units PO QAM [facility] Stop: 02/12/21 11:59 Last Admin: 01/15/21 08:14 Dose: 1,000 units Documented by: Warfarin Sodium (Warfarin Sod 5 Mg Tab) 5 mg PO DAILY@1600 [facility] Stop: 02/12/21 15:59 Last Admin: 01/14/21 16:15 Dose: 5 mg Documented by: (1) Atrial fibrillation Atrial fibrillation type: unspecified Qualified Code(s): I48.91 - Unspecified atrial fibrillation
--- NOTE | 2021-01-15 13:55 | Discharge Summary ---
Date of Service January 15, 2021 Admission HPI Per Admitting Provider This is a 65-year-old female with past medical history significant for type 2 diabetes, hypothyroidism, hyperlipidemia, history of permanent atrial fibrillation, borderline tachybrady syndrome, rheumatic heart disease, history of CAD, varicose veins of both legs, GERD, chronic kidney disease stage III, generalized osteoarthritis, restless legs syndrome, history of migraine, history of TIA, anxiety, history of acute COVID infection on 10/14/2020, treated with monoclonal antibodies as outpatient, history of mitral valve replacement with [employer] prosthesis in 1993 for rheumatic valvular heart disease, comes because of falls. She says that she fell 3 times today, did not know how she fell. She just dropped down, she denies any losing of consciousness, no shaking of the body and no biting of the tongue, no chest pain or dizziness or palpitations. Currently, resting comfortably and hemodynamically stable. Denies any headache. No blurred visions, no earache, no runny nose, no sore throat, no cough, no fevers. Appetite is okay. No difficulty swallowing. No nausea, no abdominal pain. Normal bowel and bladder movements. Ambulates okay. Lives with her mother. Admission Exam Per Admitting Provider GENERAL: The patient is of moderate build, not in acute distress. VITAL SIGNS: Temperature 36.6, pulse 72, respiratory rate 18, blood pressure 137/66, oxygen 98% on room air. HEENT: Pupils equal, round and reactive to light. Oral mucosa moist. NECK: No JVD. No neck masses. CARDIOVASCULAR: S1 and S2 heard. Regular rate and rhythm. No murmur, no gallop. RESPIRATORY SYSTEM: Normal AP diameter. No accessory muscle use. No wheezing, no crackles. ABDOMEN: Soft, bowel sounds present, nontender, no distention. CENTRAL NERVOUS SYSTEM: Cranial nerves II-XII grossly intact, nonfocal. EXTREMITIES: Pedal edema present, no erythema seen. Principal Diagnosis Syncope Discharge Exam Constitutional + well hydrated; no acute distress Eyes PERRL, conjunctivae normal, anicteric sclerae ENMT external ear and nose normal, oropharynx normal Respiratory normal respiratory effort, lungs clear to auscultation Cardiovascular Rate/Rhythm: + irregularly irregular S1 S2 Gastrointestinal (Abdomen) normal bowel sounds, soft, nontender, no hepatosplenomegaly Musculoskeletal no cyanosis or clubbing, extremities motor strength 5/5 Neurologic PERRL, EOMI, accommodation nl, no face palsy, no dysarthria Psychiatric A+Ox3, euthymic affect Discharge Data Allergies Allergy/AdvReac Type Severity Reaction Status Date / Time hydroxyzine Allergy Severe DYSTONIA Verified 01/13/21 06:56 prochlorperazine Allergy Severe NUCHAL Verified 01/13/21 06:56 DYSTONIA promethazine Allergy Severe NUCHAL Verified 01/13/21 06:56 DYSTONIA oxycodone Allergy Intermediate Numbness Verified 01/13/21 06:56 PERRY Inhibitors AdvReac Intermediate COUGH Verified 01/13/21 06:56 lisinopril AdvReac Intermediate Cough Verified 01/13/21 06:56 metformin AdvReac Intermediate DIARRHEA Verified 01/13/21 06:56 parsley AdvReac Intermediate AGITATION Verified 01/13/21 06:56 tetracycline AdvReac Intermediate DYSPEPSIA Verified 01/13/21 06:56 gabapentin AdvReac Drowsy Verified 01/13/21 06:56 NAUSEA MEDICINES Allergy Unknown SEE NOTE Uncoded 01/13/21 06:56 BELOW Consultations 01/13/21 05:54 ED Decision to Admit Stat 01/13/21 11:34 Consult Cardiology Routine Ordered Studies 01/13/21 03:01 CT angio head w con Urgent CT angio neck with con Urgent Three-vessel morphology of the thoracic aortic arch. Patency of the innominate and imaged subclavian arteries. The common and internal carotid arteries are patent. The anterior and middle cerebral arteries are widely patent. Codominant and patent vertebral arteries. The basilar and posterior cerebral arteries are patent. No aneurysm, dissection, high-grade stenosis or arterial occlusion. Cerebral venous sinuses are patent. There is no abnormal intracranial enhancement. Lung apices are clear without pneumothorax. Prior median sternotomy. No adenopathy. Degenerative changes of the cervical spine. IMPRESSION:Unremarkable CTA of the head and neck. 01/13/21 03:02 CT head/brain wo con Urgent No acute intracranial hemorrhage, midline shift, intracranial mass, hydrocephalus, territorial ischemia or abnormal extra-axial collection. Mild involutional changes. White matter hypodensities suggest chronic microvascular ischemic disease. The calvarium is intact. Small contusion of the right temporal parietal scalp on image 16. The paranasal sinuses, mastoid air cells, and middle ear cavities are clear. IMPRESSION: 1. No acute intracranial abnormality or calvarial fracture. 2. Small right temporal parietal scalp effusion Hospital Course (1) Recurrent syncope: Uncertain etiology, possibly related to dehydration as evidenced by VICKY or electrolyte imbalance. She is clearly overwhelmed in home environment and not sleeping well. CT scans unrevealing Evaluated by [employer] Grinder who recommend follow up outpatient for monitor Had PT/OT eval (2) UTI (urinary tract infection): Possible UTI UA reports bact/elevated WBC. No esterase or nitrite Received 3 doses of ceftriaxone inpatient Urine culture grew >3 diff organisms skin demarcus. Likely contaminant Denied urinary symptoms (3) Hypokalemia: K was 2.8 on admission Repleted K is 3.9 today Patient mentioned Gear Grinder recently increased her lasix on some days Her lasix was held while inpatient due to hypokalemia and VICKY I discharged patient on a low dose of potassium 10mEq daily as she is also on aldactone for next few days until she sees her PCP PCP to monitor potassium and renal function to determine if she needs more supplementation going forward I informed patient about this (4) Contusion of scalp: No acute intracranial abnormailty on CT imaging. Tylenol prn Monitor (5) Atrial fibrillation: chronic, on anticoagulation with warfarin. INR therapeutic. Rate controlled with metoprolol (6) H/O mitral valve replacement with mechanical valve: Mechanical mitral valve, anticoagulated with warfarin. Goal INR 2.5-3.5 INR is 3.2 today. Patient informed to continue warfarin Total Time Total Time Spent Total Time Spent (In Minutes): 50 Total Time Includes: Examination of the Patient, Discharge Planning, Medication Reconciliation and Communication With Other Providers Discharge Plan Discharge Items Patient Disposition: Home - Self-Care Reason For Visit: SYNCOPE AND FALL Discharge Diagnosis: Syncope Condition on Discharge: Good Activity: Resume your previous activity Non-emergency contact: Primary Care Provider and [employer] Grinder Call non-emergency contact if: you have any medication questions Follow-up/Referrals: John Blanco MD [Primary Care Provider] - Diet: Heart Healthy Addtl Attending Provider Instructions: Mrs Bowling You came to the hospital after falls and passing out briefly at home. You were evaluated in the hospital and monitored on telemetry. You were evaluated by Gear Grinder. You will need to follow up with Cardiology office for outpatient monitor. Continue taking your warfarin It was a pleasure taking care of you. Pending Studies at Discharge: No Stand-Alone Forms: My [facility], Smoking Cessation Medications and DC Order Prescriptions: New potassium chloride 10 mEq capsule, extended release 10 meq PO DAILY Qty: 7 RF: 0 Continued levothyroxine 100 mcg tablet 100 mcg PO QAM RF: 0 furosemide 40 mg tablet 80 mg PO MOWEFRSA RF: 0 folic acid 1 mg Tablet 1 mg PO QAM Qty: 30 RF: 0 amitriptyline 25 mg Tablet 50 mg PO BID RF: 0 ropinirole 2 mg tablet 2 mg PO TID RF: 0 metoprolol tartrate 25 mg Tablet 25 mg PO BID Qty: 60 RF: 5 warfarin 5 mg tablet 5 mg PO DAILY RF: 0 tramadol 50 mg Tablet 50 mg PO TID PRN (Reason: Pain) RF: 0 acetaminophen [Tylenol Extra Strength] 500 mg Tablet 500 mg PO Q6H PRN (Reason: Pain) RF: 0 spironolactone 25 mg Tablet 12.5 mg PO DAILY RF: 0 magnesium hydroxide [Milk of Magnesia] 400 mg/5 mL Suspension 5 ml PO DAILY PRN (Reason: Constipation) RF: 0 lidocaine HCl 4 % (40 mg/mL) solution 1 applic PO DIRECTED PRN (Reason: MOUTH ULCERS) RF: 0 nitroglycerin [Nitrostat] 0.4 mg Tablet, Sublingual 0.4 mg Sublingual DIRECTED PRN (Reason: Chest Pain) RF: 0 omeprazole 20 mg Capsule,Delayed Release(Dr/Ec) 20 mg PO PM RF: 0 cholecalciferol (vitamin D3) [Vitamin D3] 1,000 unit Capsule 1,000 unit PO QAM RF: 0 furosemide 40 mg tablet 40 mg PO SUTUTH RF: 0 rosuvastatin 20 mg tablet 20 mg PO HS RF: 0 Slow Fe 142 mg (45 mg iron) Tablet Extended Release 45 mg PO QAM RF: 0 Discharge Orders: Discharge Order (Routine); Ordered 01/15/21 Ordered By: Kristin Aranda/Other Patient Handouts: Managing Type 2 Diabetes Admission Data Admit Date/Time: 01/13/21 07:01 Attending Provider: Kristin Mcwilliams I. Admit Provider: Jake Pollard Primary Care Provider: John Blanco Other Providers: Jake Pollard ; Moris Spivey ; Judith Villanueva Other Interventions: Discharge Summary Assessment (RN) Last Done: 01/15/21 14:24
== END 2021-01-15 15:50 | disposition home or self-care (01) | DRG 312 ==
LOC: ED 02:41 → EDINP 07:01 → SUATTDRO 07:01 → 2S 11:58

== ENCOUNTER 2021-04-02 22:49 | Inpatient (IN) ==
[2021-04-02 23:18] LABS: Basophils # (auto) 0.02 K/uL (0-0.2); Basophils % (auto) 0.3 %; Eosinophils # (auto) 0.37 K/uL (0-0.5); Eosinophils % (auto) 5.2 %; Hematocrit (blood only) 34.4 % (37-47); Hemoglobin 10.5 g/dL (12.0-16.0); Immature Granulocytes # (auto) 0.01 K/uL (0.00-0.02); Immature Granulocytes % (auto) 0.1 %; Lymphocytes % (auto) 12.5 %; Mean Corpuscular Hemoglobin 26.8 pg (25-34); Mean Corpuscular Hgb Conc 30.5 g/dL (32-36); Mean Corpuscular Volume 87.8 fL (80-100); Mean Platelet Volume 11.1 fL (7.4-10.4); Monocytes # (auto) 0.51 K/uL (0.11-0.59); Monocytes % (auto) 7.1 %; Neutrophils # (auto) 5.37 K/uL (1.4-6.5); Neutrophils % (auto) 74.8 %; Platelet Count 162 K/uL (130-400); RDW Coefficient of Variation 15.1 % (11.5-14.5); RDW Standard Deviation 48.8 fL (36.4-46.3); Red Blood Count 3.92 M/uL (4.2-5.4); White Blood Count 7.18 K/uL (4.8-10.8)
[2021-04-02 23:40] LABS: Albumin Globulin Ratio 1.2 (0.9-2); Albumin Level 4.1 gm/dl (3.4-5.0); BUN Creatinine Ratio 17.3 (10-20); Bilirubin,Total 0.6 mg/dl (0.2-1.0); Creatinine Clr Calc Pharmacy 22.6 ml/min; Est GFR (African American) 30.9 ml/min; Est GFR (Non-African American) 26.6 ml/min; Globulin 3.4 gm/dl (2.5-4.0); Magnesium 2.2 mg/dl (1.7-2.4); Potassium 3.4 mmol/L (3.5-5.1); Total Protein 7.5 gm/dl (6.0-8.3)
--- NOTE | 2021-04-03 00:05 | CT Scan Report ---
CT head/brain wo con CLINICAL HISTORY: on coumadin -syncopal episode with trauma to the head. COMPARISON STUDY: 01/13/2021 CT DOSE: 614.27 mGy.cm TECHNIQUE: Standard CT of the Brain was performed without IV contrast. A dose lowering technique was utilized adhering to the principles of ALARA. FINDINGS: Extraaxial space: There is no evidence for subdural hematoma. There are no extra-axial fluid collecti ons. Ventricles and cisterns: The ventricles are normal in size and configuration. There is no evidence f or midline shift or mass effect. Parenchyma: There is no subarachnoid or intraparenchymal hemorrhage. There is no evidence for an acu te infarct or cerebral edema. There is homogeneous attenuation of the brain parenchyma. There are no gross mass lesions. Osseous structures: There is no evidence for an acute fracture. The visualized paranasal sinuses are clear. The mastoid air cells are clear bilaterally. Soft tissues: There is no evidence for focal soft tissue swelling. IMPRESSION: No acute intracerebral pathology. ACT 112: Negative or not required by law. Electronically signed by: Matt Logan M.D. 04/03/2021 12:04 AM
[2021-04-03 00:12] LABS: Appearance Urine Clear (Clear); Bacteria Urine Automated Negative (Negative); Bilirubin Urine Negative (Negative); Blood Urine Negative (Negative); Color Urine Yellow; Glucose Urine UA Negative (Negative); Ketones Urine Negative (Negative); Leukocyte Esterase Urine Negative (Negative); Nitrite Urine Negative (Negative); RBC Urine Automated 0-4 /hpf (0-4); Urobilinogen Urine Negative (Negative); pH Urine 7.5 (4.5-7.5)
[2021-04-03 00:16] LABS: Protein Urine 1+ (Negative)
[2021-04-03 00:31] LABS: INR 4.7 (0.9-1.1); Prothrombin Time 42.4 Seconds (9.0-12.0)
[2021-04-03] MEDS ORDERED: SODIUM CHLORIDE 0.9% 500 ML IV ONE (01:31)
--- NOTE | 2021-04-03 01:40 | Emergency Department Note ---
Impression & Plan Syncope Admit to the [facility] ED Provider Note NAME: ALCIDES MAST AGE: 65 SEX: F ARRIVES VIA: Ambulance INFORMANT: Patient ED PROVIDER(S): Tawnya Gautam DO CHIEF COMPLAINT: Syncope PLAN: Disposition: Admit to [facility] Condition: Stable MEDICAL DECISION MAKING: This is a 65-year-old female patient who has recurrent syncopal episodes. She had a loop recorder placed 2 days ago and has had 3 syncopal events with the loop recorder in place. She has no warning that she is going to lose consciousness and wakes up on the floor. It seems the patient is clearly having a cardiac dysrhythmia which is the cause of her syncopal events. These will need to be captured on site monitor to determine the need for pacemaker and/or defibrillator. Review of the loop recorder is essential. EKG shows A. fib. Laboratory studies are fairly unremarkable. The patient is on Coumadin and her INR is greater than 4. I discussed the case with the [facility] and they will evaluate for further inpatient care. Triage Nursing notes reviewed and agree with them. Prior medical records reviewed Vital Signs: reviewed and unremarkable Differential diagnosis: Cardiac dysrhythmia; aortic stenosis; seizure Diagnostics interpreted by me: ECG: Atrial fibrillation at a rate of [address] segment elevation or signs of ischemia. There is no ectopy. Cardiac Monitoring: A. fib at a rate of 88 Laboratory studies: See below Imaging studies: CT scan of the head: See radiology report which is negative Chest x-ray: As per my interpretation revealed mild pulmonary vascular congestion; Cardiomegaly HPI: 65/F arrives for evaluation of syncope. The patient had a loop recorder placed 2 days ago for episodes of syncope. She has had 3 episodes of syncope since that was placed. She has absolutely no warning that she is about to lose consciousness and simply wakes up on the floor. Tonight, the patient lost consciousness and struck her head on the floor. She is on Coumadin for atrial fibrillation. ROS: See above HPI for pertinent positives & negatives. A total of 10 systems reviewed and were otherwise negative. PAST MEDICAL HISTORY:See Below PAST SURGICAL HISTORY:See Below FAMILY HISTORY:See Below SOCIAL HISTORY:See Below HOME MEDICATIONS:See Below ALLERGIES:See Below VITALS:See Below PHYSICAL EXAMINATION: HEENT: Head - normocephalic and atraumatic. Pupils are equal, round, and reactive to light. Extraocular eye muscles are intact and sclera are anicteric. Nose - moist nasal mucosa without discharge. Mouth - moist buccal mucosa. Oropharynx is nonerythematous and there is no tonsillar exudate or edema noted. Neck: Supple; no JVD, nuchal rigidity, cervical lymphadenopathy, or auscultated bruits. Heart: Irregularly irregular rhythm with a controlled rate there is a normal S1 and S2 with no murmurs, clicks, or gallops appreciated. Lungs: Clear to auscultation bilaterally with no wheezes, rales, or rhonchi. Abdomen: Soft, completely nontender, nondistended, with good bowel sounds. There are no palpable pulsatile masses or hepatosplenomegaly. There is no guarding, rigidity, or rebound noted. Extremities: No evidence of cyanosis, clubbing, or edema. There are easily palpable peripheral pulses. Neuro:The patient is awake and alert, oriented to day, time, and place. Muscle strength is 5/5 in all 4 extremities. The patient has equal manager van strength and equal pedal push and pull. There are no cerebellar signs. ED COURSE: Times/Reassessments: 2305: Patient was evaluated in room c11. A complete history and physical was performed. An order was placed for continuous cardiac monitoring. The patient was in a atrial fibrillation at a rate of 88. An EKG was obtained. Laboratory studies were drawn as above. Patient went for CT scan of the head which was unremarkable. 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 migraine vs. stress related)-- plavix since discontinued Surgical History H/O radioactive iodine thyroid ablation H/O: hysterectomy History of cardiac cath 2000= NO STENTS History of colonoscopy History of tonsillectomy and adenoidectomy History of total left knee replacement Hx of appendectomy Hx of cholecystectomy Hx of mitral valve replacement 1993 (rheumatic valvular disease) Hx of tubal ligation Family History Uncle , of [place] in his 40s Coronary heart disease Social History Smoking Status: Never smoker Second Hand Exposure: No; Hx Alcohol Use: Yes Alcohol type: wine Hx Substance Use: No Preferred Language: Portuguese Communication Ability: Effective Hat Copyist Required: No Beliefs That Will Affect Care: None marital status: Single Current Living Situation: Parent Current Living Situation Comment: takes care of mother current occupational status: disabled How many Children do You have: 0 Other Information That Helps Us Care for You: No Feels Safe at Home: Yes Safety Concerns: Feels Safe At This Time Assistive Devices: None Allergies Allergies Allergy/AdvReac Type Severity Reaction Status Date / Time hydroxyzine Allergy Severe DYSTONIA Verified 03/31/21 14:28 prochlorperazine Allergy Severe NUCHAL Verified 03/31/21 14:28 DYSTONIA promethazine Allergy Severe NUCHAL Verified 03/31/21 14:28 DYSTONIA oxycodone Allergy Intermediate Numbness Verified 03/31/21 14:28 PERRY Inhibitors AdvReac Intermediate COUGH Verified 03/31/21 14:28 lisinopril AdvReac Intermediate Cough Verified 03/31/21 14:28 metformin AdvReac Intermediate DIARRHEA Verified 03/31/21 14:28 parsley AdvReac Intermediate AGITATION Verified 03/31/21 14:28 tetracycline AdvReac Intermediate DYSPEPSIA Verified 03/31/21 14:28 gabapentin AdvReac Drowsy Verified 03/31/21 14:28 NAUSEA MEDICINES Allergy Unknown SEE NOTE Uncoded 03/31/21 14:28 BELOW Home Meds Home Medications Medication Instructions Recorded Confirmed cholecalciferol (vitamin D3) 25 1,000 unit PO QAM 12/05/17 04/03/21 mcg (1,000 unit) capsule (Vitamin D3) nitroglycerin 0.4 mg sublingual 0.4 mg SUBLINGUAL DIRECTED PRN 12/05/17 04/03/21 tablet (Nitrostat) omeprazole 20 mg capsule,delayed 20 mg PO PM 12/05/17 04/03/21 release furosemide 40 mg tablet 80 mg PO MOWEFRSA 05/18/18 04/03/21 levothyroxine 100 mcg tablet 100 mcg PO QAM 05/18/18 04/03/21 amitriptyline 25 mg tablet 50 mg PO BID 10/08/18 04/03/21 ropinirole 2 mg tablet 2 mg PO TID 10/08/18 04/03/21 warfarin 5 mg tablet 5 mg PO DAILY 10/22/18 04/03/21 acetaminophen 500 mg tablet 500 mg PO Q6H PRN 12/31/19 04/03/21 (Tylenol Extra Strength) lidocaine HCl 4 % (40 mg/mL) 1 applic PO DIRECTED PRN 12/31/19 04/03/21 mucosal solution magnesium hydroxide 400 mg/5 mL 5 ml PO DAILY PRN 12/31/19 04/03/21 oral suspension (Milk of Magnesia) spironolactone 25 mg tablet 12.5 mg PO DAILY 12/31/19 04/03/21 tramadol 50 mg tablet 50 mg PO TID PRN 12/31/19 04/03/21 furosemide 40 mg tablet 40 mg PO SUTUTH 10/15/20 04/03/21 rosuvastatin 20 mg tablet 20 mg PO HS 10/15/20 04/03/21 ascorbic acid (vitamin C) 500 mg 500 mg PO DAILY 03/31/21 04/03/21 tablet (Vitamin C) Previous Rx's Medication Instructions Recorded folic acid 1 mg tablet 1 mg PO QAM #30 tab 05/21/18 metoprolol tartrate 25 mg tablet 25 mg PO BID #60 tab 10/08/18 Results & Data (ED) Vital Signs Vital Signs - 24 hr 04/03/21 20:00 04/03/21 22:18 04/04/21 02:00 Temperature Temperature Source Pulse Rate - Lying 79 Pulse Rate - Sitting 87 Pulse Rate - Standing 84 Pulse Rate [Apical] 101 H 72 Respiratory Rate 14 16 Blood Pressure - Lying 127/77 Blood Pressure - Sitting 142/73 H Blood Pressure- Standing 109/93 Blood Pressure [Right Arm] 139/75 90/56 L Blood Pressure Mean [Right Arm] 96 67 Pulse Oximetry 93 94 Oxygen Delivery Method 04/04/21 05:55 04/04/21 10:00 Temperature 36.6 C Temperature Source Oral Pulse Rate - Lying Pulse Rate - Sitting Pulse Rate - Standing Pulse Rate [Apical] 81 86 Respiratory Rate 18 18 Blood Pressure - Lying Blood Pressure - Sitting Blood Pressure- Standing Blood Pressure [Right Arm] 119/70 107/75 Blood Pressure Mean [Right Arm] 86 85 Pulse Oximetry 99 99 Oxygen Delivery Method Room Air Laboratory Data Result diagrams: 04/04/21 02:22 04/04/21 02: Lab Results 04/02/21 04/02/21 04/02/21 Range/Units 23:07 23:07 23:07 WBC 7.18 (4.8-10.8) K/uL RBC 3.92 L (4.2-5.4) M/uL Hgb 10.5 L (12.0-16.0) g/dL Hct 34.4 L (37-47) % MCV 87.8 (80-100) fL MCH 26.8 (25-34) pg MCHC 30.5 L (32-36) g/dL RDW Std Deviation 48.8 H (36.4-46.3) fL RDW Coeff of Courtney 15.1 H (11.5-14.5) % Plt Count 162 (130-400) K/uL MPV 11.1 H (7.4-10.4) fL Immature Gran % (Auto) 0.1 % Neut % (Auto) 74.8 % Lymph % (Auto) 12.5 % [place] % (Auto) 7.1 % Eos % (Auto) 5.2 % Baso % (Auto) 0.3 % Neut # (Auto) 5.37 (1.4-6.5) K/uL Lymph # (Auto) 0.90 L (1.2-3.4) K/uL [place] # (Auto) 0.51 (0.11-0.59) K/uL Eos # (Auto) 0.37 (0-0.5) K/uL Baso # (Auto) 0.02 (0-0.2) K/uL Immature Gran # (Auto) 0.01 (0.00-0.02) K/uL PT (9.0-12.0) Seconds INR (0.9-1.1) Sodium 139 (136-145) mmol/L Potassium 3.4 L (3.5-5.1) mmol/L Chloride 100 (98-107) mmol/L Carbon Dioxide 32 (21-32) mmol/L Anion Gap 7 (3-11) BUN 33 H (6-23) mg/dl Creatinine 1.91 H (0.6-1.2) mg/dl Est Cr Clr Drug Dosing 22.6 ml/min Est GFR ( Amer) 30.9 ml/min Est GFR (Non-Af Amer) 26.6 ml/min BUN/Creatinine Ratio 17.3 (10-20) Glucose 158 H (70-99(Fasting)) mg/dl POC Glucose (70-99) mg/dl Calcium 10.0 (8.5-10.1) mg/dl Magnesium 2.2 (1.7-2.4) mg/dl Total Bilirubin 0.6 (0.2-1.0) mg/dl AST 26 (13-39) U/L ALT 13 (7-52) U/L Alkaline Phosphatase 90 (34-104) U/L Troponin I (0-0.04) ng/ml Total Protein 7.5 (6.0-8.3) gm/dl Albumin 4.1 (3.4-5.0) gm/dl Globulin 3.4 (2.5-4.0) gm/dl Albumin/Globulin Ratio 1.2 (0.9-2) TSH 0.507 (0.300-4.500) uIu/ml Urine Color Urine Appearance (Clear) Urine pH (4.5-7.5) Ur Specific [place] (1.000-1.030) Urine Protein (Negative) Urine Glucose (UA) (Negative) Urine Ketones (Negative) Urine Blood (Negative) Urine Nitrite (Negative) Urine Bilirubin (Negative) Urine Urobilinogen (Negative) Ur Leukocyte Esterase (Negative) Urine WBC (Auto) (0-5) /hpf Urine RBC (Auto) (0-4) /hpf U Hyaline Cast (Auto) (0-5) /lpf U Epithel Cells (Auto) (0-5) /lpf Urine Bacteria (Auto) (Negative) SARS-CoV-2, RNA, NAAT (NEGATIVE) 04/02/21 04/02/21 04/02/21 Range/Units 23:07 23:45 23:47 WBC (4.8-10.8) K/uL RBC (4.2-5.4) M/uL Hgb (12.0-16.0) g/dL Hct (37-47) % MCV (80-100) fL MCH (25-34) pg MCHC (32-36) g/dL RDW Std Deviation (36.4-46.3) fL RDW Coeff of [place] (11.5-14.5) % Plt Count (130-400) K/uL MPV (7.4-10.4) fL Immature Gran % (Auto) % Neut % (Auto) % Lymph % (Auto) % [place] % (Auto) % Eos % (Auto) % Baso % (Auto) % Neut # (Auto) (1.4-6.5) K/uL Lymph # (Auto) (1.2-3.4) K/uL [place] # (Auto) (0.11-0.59) K/uL Eos # (Auto) (0-0.5) K/uL Baso # (Auto) (0-0.2) K/uL Immature Gran # (Auto) (0.00-0.02) K/uL PT (9.0-12.0) Seconds INR (0.9-1.1) Sodium (136-145) mmol/L Potassium (3.5-5.1) mmol/L Chloride (98-107) mmol/L Carbon Dioxide (21-32) mmol/L Anion Gap (3-11) BUN (6-23) mg/dl Creatinine (0.6-1.2) mg/dl Est Cr Clr Drug Dosing ml/min Est GFR ( Amer) ml/min Est GFR (Non-Af Amer) ml/min BUN/Creatinine Ratio (10-20) Glucose (70-99(Fasting)) mg/dl POC Glucose (70-99) mg/dl Calcium (8.5-10.1) mg/dl Magnesium (1.7-2.4) mg/dl Total Bilirubin (0.2-1.0) mg/dl AST (13-39) U/L ALT (7-52) U/L Alkaline Phosphatase (34-104) U/L Troponin I < 0.03 (0-0.04) ng/ml Total Protein (6.0-8.3) gm/dl Albumin (3.4-5.0) gm/dl Globulin (2.5-4.0) gm/dl Albumin/Globulin Ratio (0.9-2) TSH (0.300-4.500) uIu/ml Urine Color Yellow Urine Appearance Clear (Clear) Urine pH 7.5 (4.5-7.5) Ur Specific [place] 1.010 (1.000-1.030) Urine Protein 1+ H (Negative) Urine Glucose (UA) Negative (Negative) Urine Ketones Negative (Negative) Urine Blood Negative (Negative) Urine Nitrite Negative (Negative) Urine Bilirubin Negative (Negative) Urine Urobilinogen Negative (Negative) Ur Leukocyte Esterase Negative (Negative) Urine WBC (Auto) 1-5 (0-5) /hpf Urine RBC (Auto) 0-4 (0-4) /hpf U Hyaline Cast (Auto) 1-5 (0-5) /lpf U Epithel Cells (Auto) 5-10 H (0-5) /lpf Urine Bacteria (Auto) Negative (Negative) SARS-CoV-2, RNA, NAAT NEGATIVE (NEGATIVE) 04/02/21 04/03/21 04/03/21 Range/Units 23:59 03:45 06:01 WBC 5.56 (4.8-10.8) K/uL RBC 3.71 L (4.2-5.4) M/uL Hgb 10.3 L (12.0-16.0) g/dL Hct 32.8 L (37-47) % MCV 88.4 (80-100) fL MCH 27.8 (25-34) pg MCHC 31.4 L (32-36) g/dL RDW Std Deviation 49.0 H (36.4-46.3) fL RDW Coeff of Courtney 15.1 H (11.5-14.5) % Plt Count 141 (130-400) K/uL MPV 11.0 H (7.4-10.4) fL Immature Gran % (Auto) 0.2 % Neut % (Auto) 70.0 % Lymph % (Auto) 18.0 % [place] % (Auto) 5.8 % Eos % (Auto) 5.6 % Baso % (Auto) 0.4 % Neut # (Auto) 3.90 (1.4-6.5) K/uL Lymph # (Auto) 1.00 L (1.2-3.4) K/uL [place] # (Auto) 0.32 (0.11-0.59) K/uL Eos # (Auto) 0.31 (0-0.5) K/uL Baso # (Auto) 0.02 (0-0.2) K/uL Immature Gran # (Auto) 0.01 (0.00-0.02) K/uL PT 42.4 H (9.0-12.0) Seconds INR 4.7 H (0.9-1.1) Sodium (136-145) mmol/L Potassium (3.5-5.1) mmol/L Chloride (98-107) mmol/L Carbon Dioxide (21-32) mmol/L Anion Gap (3-11) BUN (6-23) mg/dl Creatinine (0.6-1.2) mg/dl Est Cr Clr Drug Dosing ml/min Est GFR ( Amer) ml/min Est GFR (Non-Af Amer) ml/min BUN/Creatinine Ratio (10-20) Glucose (70-99(Fasting)) mg/dl POC Glucose 123 H (70-99) mg/dl Calcium (8.5-10.1) mg/dl Magnesium (1.7-2.4) mg/dl Total Bilirubin (0.2-1.0) mg/dl AST (13-39) U/L ALT (7-52) U/L Alkaline Phosphatase (34-104) U/L Troponin I (0-0.04) ng/ml Total Protein (6.0-8.3) gm/dl Albumin (3.4-5.0) gm/dl Globulin (2.5-4.0) gm/dl Albumin/Globulin Ratio (0.9-2) TSH (0.300-4.500) uIu/ml Urine Color Urine Appearance (Clear) Urine pH (4.5-7.5) Ur Specific [place] (1.000-1.030) Urine Protein (Negative) Urine Glucose (UA) (Negative) Urine Ketones (Negative) Urine Blood (Negative) Urine Nitrite (Negative) Urine Bilirubin (Negative) Urine Urobilinogen (Negative) Ur Leukocyte Esterase (Negative) Urine WBC (Auto) (0-5) /hpf Urine RBC (Auto) (0-4) /hpf U Hyaline Cast (Auto) (0-5) /lpf U Epithel Cells (Auto) (0-5) /lpf Urine Bacteria (Auto) (Negative) SARS-CoV-2, RNA, NAAT (NEGATIVE) 04/03/21 04/03/21 04/03/21 Range/Units 06:01 06:01 08:43 WBC (4.8-10.8) K/uL RBC (4.2-5.4) M/uL Hgb (12.0-16.0) g/dL Hct (37-47) % MCV (80-100) fL MCH (25-34) pg MCHC (32-36) g/dL RDW Std Deviation (36.4-46.3) fL RDW Coeff of Courtney (11.5-14.5) % Plt Count (130-400) K/uL MPV (7.4-10.4) fL Immature Gran % (Auto) % Neut % (Auto) % Lymph % (Auto) % [place] % (Auto) % Eos % (Auto) % Baso % (Auto) % Neut # (Auto) (1.4-6.5) K/uL Lymph # (Auto) (1.2-3.4) K/uL [place] # (Auto) (0.11-0.59) K/uL Eos # (Auto) (0-0.5) K/uL Baso # (Auto) (0-0.2) K/uL Immature Gran # (Auto) (0.00-0.02) K/uL PT 47.9 H (9.0-12.0) Seconds INR 5.4 H (0.9-1.1) Sodium 140 (136-145) mmol/L Potassium 4.1 D (3.5-5.1) mmol/L Chloride 105 (98-107) mmol/L Carbon Dioxide 31 (21-32) mmol/L Anion Gap 4 (3-11) BUN 30 H (6-23) mg/dl Creatinine 1.66 H (0.6-1.2) mg/dl Est Cr Clr Drug Dosing 26.0 ml/min Est GFR ( Amer) 36.6 ml/min Est GFR (Non-Af Amer) 31.6 ml/min BUN/Creatinine Ratio 18.1 (10-20) Glucose 130 H (70-99(Fasting)) mg/dl POC Glucose 71 (70-99) mg/dl Calcium 9.9 (8.5-10.1) mg/dl Magnesium (1.7-2.4) mg/dl Total Bilirubin (0.2-1.0) mg/dl AST (13-39) U/L ALT (7-52) U/L Alkaline Phosphatase (34-104) U/L Troponin I (0-0.04) ng/ml Total Protein (6.0-8.3) gm/dl Albumin (3.4-5.0) gm/dl Globulin (2.5-4.0) gm/dl Albumin/Globulin Ratio (0.9-2) TSH (0.300-4.500) uIu/ml Urine Color Urine Appearance (Clear) Urine pH (4.5-7.5) Ur Specific [place] (1.000-1.030) Urine Protein (Negative) Urine Glucose (UA) (Negative) Urine Ketones (Negative) Urine Blood (Negative) Urine Nitrite (Negative) Urine Bilirubin (Negative) Urine Urobilinogen (Negative) Ur Leukocyte Esterase (Negative) Urine WBC (Auto) (0-5) /hpf Urine RBC (Auto) (0-4) /hpf U Hyaline Cast (Auto) (0-5) /lpf U Epithel Cells (Auto) (0-5) /lpf Urine Bacteria (Auto) (Negative) SARS-CoV-2, RNA, NAAT (NEGATIVE) 04/03/21 04/03/21 04/04/21 Range/Units 21:09 22:27 02:22 WBC 5.75 (4.8-10.8) K/uL RBC 3.50 L (4.2-5.4) M/uL Hgb 9.5 L (12.0-16.0) g/dL Hct 30.8 L (37-47) % MCV 88.0 (80-100) fL MCH 27.1 (25-34) pg MCHC 30.8 L (32-36) g/dL RDW Std Deviation 49.4 H (36.4-46.3) fL RDW Coeff of Courtney 15.3 H (11.5-14.5) % Plt Count 129 L (130-400) K/uL MPV 10.7 H (7.4-10.4) fL Immature Gran % (Auto) 0.0 % Neut % (Auto) 69.6 % Lymph % (Auto) 18.1 % [place] % (Auto) 5.2 % Eos % (Auto) 6.8 % Baso % (Auto) 0.3 % Neut # (Auto) 4.00 (1.4-6.5) K/uL Lymph # (Auto) 1.04 L (1.2-3.4) K/uL [place] # (Auto) 0.30 (0.11-0.59) K/uL Eos # (Auto) 0.39 (0-0.5) K/uL Baso # (Auto) 0.02 (0-0.2) K/uL Immature Gran # (Auto) 0.00 (0.00-0.02) K/uL PT (9.0-12.0) Seconds INR (0.9-1.1) Sodium (136-145) mmol/L Potassium (3.5-5.1) mmol/L Chloride (98-107) mmol/L Carbon Dioxide (21-32) mmol/L Anion Gap (3-11) BUN (6-23) mg/dl Creatinine (0.6-1.2) mg/dl Est Cr Clr Drug Dosing ml/min Est GFR ( Amer) ml/min Est GFR (Non-Af Amer) ml/min BUN/Creatinine Ratio (10-20) Glucose (70-99(Fasting)) mg/dl POC Glucose 109 H 98 (70-99) mg/dl Calcium (8.5-10.1) mg/dl Magnesium (1.7-2.4) mg/dl Total Bilirubin (0.2-1.0) mg/dl AST (13-39) U/L ALT (7-52) U/L Alkaline Phosphatase (34-104) U/L Troponin I (0-0.04) ng/ml Total Protein (6.0-8.3) gm/dl Albumin (3.4-5.0) gm/dl Globulin (2.5-4.0) gm/dl Albumin/Globulin Ratio (0.9-2) TSH (0.300-4.500) uIu/ml Urine Color Urine Appearance (Clear) Urine pH (4.5-7.5) Ur Specific [place] (1.000-1.030) Urine Protein (Negative) Urine Glucose (UA) (Negative) Urine Ketones (Negative) Urine Blood (Negative) Urine Nitrite (Negative) Urine Bilirubin (Negative) Urine Urobilinogen (Negative) Ur Leukocyte Esterase (Negative) Urine WBC (Auto) (0-5) /hpf Urine RBC (Auto) (0-4) /hpf U Hyaline Cast (Auto) (0-5) /lpf U Epithel Cells (Auto) (0-5) /lpf Urine Bacteria (Auto) (Negative) SARS-CoV-2, RNA, NAAT (NEGATIVE) 04/04/21 04/04/21 04/04/21 Range/Units 02:22 02:22 06:00 WBC (4.8-10.8) K/uL RBC (4.2-5.4) M/uL Hgb (12.0-16.0) g/dL Hct (37-47) % MCV (80-100) fL MCH (25-34) pg MCHC (32-36) g/dL RDW Std Deviation (36.4-46.3) fL RDW Coeff of Courtney (11.5-14.5) % Plt Count (130-400) K/uL MPV (7.4-10.4) fL Immature Gran % (Auto) % Neut % (Auto) % Lymph % (Auto) % [place] % (Auto) % Eos % (Auto) % Baso % (Auto) % Neut # (Auto) (1.4-6.5) K/uL Lymph # (Auto) (1.2-3.4) K/uL [place] # (Auto) (0.11-0.59) K/uL Eos # (Auto) (0-0.5) K/uL Baso # (Auto) (0-0.2) K/uL Immature Gran # (Auto) (0.00-0.02) K/uL PT 60.2 H (9.0-12.0) Seconds INR 6.9 H* (0.9-1.1) Sodium 136 (136-145) mmol/L Potassium 3.9 (3.5-5.1) mmol/L Chloride 105 (98-107) mmol/L Carbon Dioxide 26 (21-32) mmol/L Anion Gap 5 (3-11) BUN 23 (6-23) mg/dl Creatinine 1.78 H (0.6-1.2) mg/dl Est Cr Clr Drug Dosing 24.3 ml/min Est GFR ( Amer) 33.6 ml/min Est GFR (Non-Af Amer) 29.0 ml/min BUN/Creatinine Ratio 12.9 (10-20) Glucose 108 H (70-99(Fasting)) mg/dl POC Glucose (70-99) mg/dl Calcium 9.7 (8.5-10.1) mg/dl Magnesium (1.7-2.4) mg/dl Total Bilirubin (0.2-1.0) mg/dl AST (13-39) U/L ALT (7-52) U/L Alkaline Phosphatase (34-104) U/L Troponin I 0.03 0.03 (0-0.04) ng/ml Total Protein (6.0-8.3) gm/dl Albumin (3.4-5.0) gm/dl Globulin (2.5-4.0) gm/dl Albumin/Globulin Ratio (0.9-2) TSH (0.300-4.500) uIu/ml Urine Color Urine Appearance (Clear) Urine pH (4.5-7.5) Ur Specific [place] (1.000-1.030) Urine Protein (Negative) Urine Glucose (UA) (Negative) Urine Ketones (Negative) Urine Blood (Negative) Urine Nitrite (Negative) Urine Bilirubin (Negative) Urine Urobilinogen (Negative) Ur Leukocyte Esterase (Negative) Urine WBC (Auto) (0-5) /hpf Urine RBC (Auto) (0-4) /hpf U Hyaline Cast (Auto) (0-5) /lpf U Epithel Cells (Auto) (0-5) /lpf Urine Bacteria (Auto) (Negative) SARS-CoV-2, RNA, NAAT (NEGATIVE) 04/04/21 Range/Units 07:44 WBC (4.8-10.8) K/uL RBC (4.2-5.4) M/uL Hgb (12.0-16.0) g/dL Hct (37-47) % MCV (80-100) fL MCH (25-34) pg MCHC (32-36) g/dL RDW Std Deviation (36.4-46.3) fL RDW Coeff of Courtney (11.5-14.5) % Plt Count (130-400) K/uL MPV (7.4-10.4) fL Immature Gran % (Auto) % Neut % (Auto) % Lymph % (Auto) % [place] % (Auto) % Eos % (Auto) % Baso % (Auto) % Neut # (Auto) (1.4-6.5) K/uL Lymph # (Auto) (1.2-3.4) K/uL [place] # (Auto) (0.11-0.59) K/uL Eos # (Auto) (0-0.5) K/uL Baso # (Auto) (0-0.2) K/uL Immature Gran # (Auto) (0.00-0.02) K/uL PT (9.0-12.0) Seconds INR (0.9-1.1) Sodium (136-145) mmol/L Potassium (3.5-5.1) mmol/L Chloride (98-107) mmol/L Carbon Dioxide (21-32) mmol/L Anion Gap (3-11) BUN (6-23) mg/dl Creatinine (0.6-1.2) mg/dl Est Cr Clr Drug Dosing ml/min Est GFR ( Amer) ml/min Est GFR (Non-Af Amer) ml/min BUN/Creatinine Ratio (10-20) Glucose (70-99(Fasting)) mg/dl POC Glucose 112 H (70-99) mg/dl Calcium (8.5-10.1) mg/dl Magnesium (1.7-2.4) mg/dl Total Bilirubin (0.2-1.0) mg/dl AST (13-39) U/L ALT (7-52) U/L Alkaline Phosphatase (34-104) U/L Troponin I (0-0.04) ng/ml Total Protein (6.0-8.3) gm/dl Albumin (3.4-5.0) gm/dl Globulin (2.5-4.0) gm/dl Albumin/Globulin Ratio (0.9-2) TSH (0.300-4.500) uIu/ml Urine Color Urine Appearance (Clear) Urine pH (4.5-7.5) Ur Specific [place] (1.000-1.030) Urine Protein (Negative) Urine Glucose (UA) (Negative) Urine Ketones (Negative) Urine Blood (Negative) Urine Nitrite (Negative) Urine Bilirubin (Negative) Urine Urobilinogen (Negative) Ur Leukocyte Esterase (Negative) Urine WBC (Auto) (0-5) /hpf Urine RBC (Auto) (0-4) /hpf U Hyaline Cast (Auto) (0-5) /lpf U Epithel Cells (Auto) (0-5) /lpf Urine Bacteria (Auto) (Negative) SARS-CoV-2, RNA, NAAT (NEGATIVE) Administered Medications Acetaminophen (Acetaminophen 325 Mg Tab) 650 mg PO Q4H PRN PRN Reason: Pain or Fever Stop: 05/03/21 03:35 Last Admin: 04/04/21 09:55 Dose: 650 mg Documented by: [id number] Admin: 04/03/21 23:15 Dose: 650 mg Documented by: [id number] Amitriptyline HCl (Amitriptyline Hcl 50 Mg Tab) 50 mg PO BID [facility] Stop: 05/03/21 08:59 Last Admin: 04/04/21 09:56 Dose: 50 mg Documented by: [id number] Admin: 04/03/21 22:29 Dose: 50 mg Documented by: [id number] Admin: 04/03/21 08:38 Dose: 50 mg Documented by: [id number] Folic Acid (Folic Acid 1 Mg Tab) 1 mg PO QAM [facility] Stop: 05/03/21 08:59 Last Admin: 04/04/21 09:56 Dose: 1 mg Documented by: [id number] Admin: 04/03/21 08:38 Dose: 1 mg Documented by: [id number] Insulin Aspart (Insulin Aspart Per Unit) 0 units SC ACHS [facility] Stop: 05/03/21 03:35 Last Admin: 04/04/21 12:21 Dose: Not Given Documented by: [id number] Admin: 04/04/21 10:09 Dose: Not Given Documented by: [id number] Admin: 04/03/21 22:52 Dose: Not Given Documented by: [id number] Cosigned by: [id number] Admin: 04/03/21 16:37 Dose: Not Given Documented by: [id number] Cosigned by: [id number] Admin: 04/03/21 11:37 Dose: Not Given Documented by: [id number] Cosigned by: [id number] Admin: 04/03/21 08:46 Dose: Not Given Documented by: [id number] Admin: 04/03/21 03:53 Dose: Not Given Documented by: [id number] Cosigned by: [id number] Insulin Glargine (Insulin Glargine Solostar 100 Units/Ml 3 Ml Pen) 5 units SC DAILY [facility] Stop: 05/03/21 08:59 Last Admin: 04/04/21 10:07 Dose: Not Given Documented by: [id number] Admin: 04/03/21 08:46 Dose: Not Given Documented by: [id number] Levothyroxine Sodium (Levothyroxine Sodium 100 Mcg Tablet) 100 mcg PO DAILYBB [facility] Stop: 05/03/21 06:29 Last Admin: 04/04/21 05:54 Dose: 100 mcg Documented by: [id number] Admin: 04/03/21 05:56 Dose: 100 mcg Documented by: [id number] Metoprolol Tartrate (Metoprolol Tartrate 25 Mg Tab) 12.5 mg PO BID [facility] Stop: 05/03/21 08:59 Last Admin: 04/04/21 09:55 Dose: 12.5 mg Documented by: [id number] Admin: 04/03/21 22:29 Dose: 12.5 mg Documented by: [id number] Admin: 04/03/21 08:36 Dose: 12.5 mg Documented by: [id number] Pantoprazole Sodium (Pantoprazole 40 Mg Tab) 40 mg PO PM PRISCILA Stop: 05/03/21 20:59 Last Admin: 04/03/21 22:33 Dose: 40 mg Documented by: [id number] Ropinirole HCl (Ropinirole Hcl 2 Mg Tablet) 2 mg PO TID PRISCILA Stop: 05/03/21 08:59 Last Admin: 04/04/21 13:48 Dose: 2 mg Documented by: [id number] Admin: 04/04/21 09:55 Dose: 2 mg Documented by: [id number] Admin: 04/03/21 22:32 Dose: 2 mg Documented by: [id number] Admin: 04/03/21 15:14 Dose: 2 mg Documented by: [id number] Admin: 04/03/21 08:35 Dose: 2 mg Documented by: [id number] Rosuvastatin Calcium (Rosuvastatin Calcium 20 Mg Tab) 20 mg PO HS PRISCILA Stop: 05/03/21 20:59 Last Admin: 04/03/21 22:32 Dose: 20 mg Documented by: [id number] Spironolactone (Spironolactone 12.5 Mg Tab) 12.5 mg PO DAILY PRISCILA Stop: 05/04/21 11:59 Last Admin: 04/04/21 13:48 Dose: 12.5 mg Documented by: [id number] Discontinued Medications Phytonadione 1 mg/ Sucrose 2 ml/ Microcrystalline Cellulose 2 ml/ BARCODE IDENTIFIER 1 ea 0 mg PO NOW STA Stop: 04/04/21 03:45 Last Admin: 04/04/21 04:35 Dose: 4 ml Documented by: [id number] Furosemide (Furosemide 40 Mg/4 Ml Vial) 40 mg IV ONE ONE Stop: 04/04/21 11:42 Last Admin: 04/04/21 12:19 Dose: 40 mg Documented by: [id number] Sodium Chloride (Nss) 500 mls @ 999 mls/hr IV .Q31M ONE Stop: 04/03/21 02:01 Last Infusion: 04/03/21 03:18 Dose: 0 mls/hr Documented by: [id number] Admin: 04/03/21 02:06 Dose: 999 mls/hr Documented by: [id number] Sodium Chloride (Nss) 500 mls @ 125 mls/hr IV .Q4H PRISCILA Stop: 05/03/21 01:44 Last Infusion: 04/03/21 03:31 Dose: 0 mls/hr Documented by: [id number] Admin: 04/03/21 02:06 Dose: 125 mls/hr Documented by: [id number] Albumin Human (Albumin 25%) 12.5 gm in 50 mls @ 50 mls/hr IV ONE ONE Stop: 04/03/21 21:56 Last Infusion: 04/03/21 23:32 Dose: 0 mls/hr Documented by: [id number] Admin: 04/03/21 22:33 Dose: 50 mls/hr Documented by: [id number] Nitroglycerin (Nitroglycerin 2% Ointment 30gm Tube) Confirm Administered Dose 18 inch .ROUTE .STK-MED ONE Stop: 04/04/21 01:56 Last Admin: 04/04/21 02:05 Dose: Not Given Documented by: [id number] Nitroglycerin (Nitroglycerin Sl 0.4 Mg/Tab Tab) 0.4 mg SL NOW STA Stop: 04/04/21 02:06 Last Admin: 04/04/21 03:43 Dose: Not Given Documented by: [id number] Nitroglycerin (Nitroglycerin Sl 0.4 Mg/Tab Tab) Confirm Administered Dose 0.4 mg .ROUTE .STK-MED ONE Stop: 04/04/21 02:15 Last Admin: 04/04/21 02:15 Dose: 0.4 mg Documented by: [id number] Potassium Chloride (Potassium Chloride Crtab 20 Meq Tabcr) 40 meq PO NOW STA Stop: 04/03/21 01:49 Last Admin: 04/03/21 02:06 Dose: 40 meq Documented by: [id number] Potassium Chloride (Potassium Chloride Crtab 20 Meq Tabcr) 40 meq PO ONE ONE Stop: 04/03/21 03:31 Last Admin: 04/03/21 03:53 Dose: 40 meq Documented by: [id number] Imaging Data Radiologist's Impression: Chest X-Ray 04/04/21 09:17 XR chest 1V portable HISTORY: 65 years-old Female increased rales coarsened lung sounds COMPARISON: Chest radiograph 04/03/2021 TECHNIQUE: Portable AP view of the chest FINDINGS: Cardiac silhouette is enlarged. Prior median sternotomy with cardiac valvular prosthesis. Loop recorder device. Pulmonary vascular congestion with mild coarsening of the interstitium. No pneumothorax or large pleural effusion. Mild linear bibasilar atelectasis/scarring. Degenerative changes of the shoulders and spine. IMPRESSION: 1. Cardiomegaly with pulmonary vascular congestion and interstitial coarsening suggestive of mild pulmonary edema. 2. Mild bibasilar atelectasis. ACT 112: Negative or not required by law. The above report was generated using voice recognition software. It may contain grammatical, syntax or spelling errors. Electronically signed by: Gasper Scott M.D. 04/04/2021 10:11 AM Discharge Plan Visit Data Chief Complaint: Syncope Stated Complaint: Syncope ED Provider: Tawnya Gautam Discharge Problem: Syncope Discharge Instructions Interventions: ED Discharge Assessment Last Done: 04/03/21 03:58 Discharge Problem: Syncope Qualifiers: Syncope type: unspecified Qualified Code(s): R55 - Syncope and collapse
[2021-04-03] MEDS ORDERED: SODIUM CHLORIDE 0.9% 500 ML IV SCH (01:45)
[2021-04-03] MEDS ORDERED: POTASSIUM CHLORIDE CRTAB 20 MEQ TABCR PO STA (01:48)
[2021-04-03] MEDS ORDERED: HYDROCODONE/ACETAMOPHEN 5/325MG TAB PO PRN (02:40)
[2021-04-03] MEDS ORDERED: POTASSIUM CHLORIDE CRTAB 20 MEQ TABCR PO ONE (03:30)
[2021-04-03] MEDS ORDERED: CARBOHYDRATES FOR HYPOGLYCEMIA PO PRN (03:36)
[2021-04-03] MEDS ORDERED: GLUCOSE 40% GEL 15 GM TUBE PO PRN (03:36)
[2021-04-03] MEDS ORDERED: GLUCOSE 10 TABS/TUBE PO PRN (03:36)
[2021-04-03] MEDS ORDERED: DEXTROSE 50% 50 ML SYRINGE IV PRN (03:36)
[2021-04-03] MEDS ORDERED: GLUCAGON FOR INJ 1 MG VIAL SQ PRN (03:36)
[2021-04-03] MEDS ORDERED: METOCLOPRAMIDE HCL INJ 5 MG/ML 2 ML VIAL IV PRN (03:36)
[2021-04-03] MEDS: INSULIN ASPART PER UNIT SC SCH ×5 (03:53→22:52)
--- NOTE | 2021-04-03 05:13 | History & Physical Report ---
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, INR supratherapeutic hypertension stable hyperlipidemia on statin Rx DM2 diet-controlled, well-controlled as of recent hemoglobin A1c of 24 January 2021 CRI, creatinine at baseline Hypothyroidism, euthyroid as of today's TSH chronic anemia, hemoglobin at baseline Hypokalemia secondary to home diuretic Rx OBS PCU Decrease maintenance beta-marjorie dose, hold beta-marjorie if patient bradycardic at any point Orthostatic vitals, EEG for additional recurrent syncope work-up Cardiology consult Re: Recurrent syncope, history recent loop recorder implantation Replace potassium Basal insulin, ISS BG goal 1 10-1 40, carb count coverage DVT prophylaxis. Coumadin INR goal between 2.5-3.5 Full code Text document was generated using [employer] voice recognition software. It may contain grammatical or spelling errors. Kindly contact undersigned for clarification of any documentation item in question. Admission and Anticipated Discharge Date Admission Date: April 03, 2021 History of Present Illness Chief Complaint: Recurrent syncope Primary Care Provider: John Blanco MD History obtained from patient and records. Medical history significant for SSS/rheumatic heart disease/history of mechanical MVR on Coumadin, hypertension, hyperlipidemia, history embolic CVA as per records, DM2 diet-controlled, CRI (baseline creatinine 1.6-2 as per records), chronic anemia (baseline hemoglobin of 10). Recent confinement December 2020 for recurrent syncope. No bradycardic events during confinement. Cardiology recommended outpatient community case manager. Outpatient Zio patch showed A. fib. Another unwitnessed syncopal event 2 weeks ago. [facility] turner in recommended Linq implantation on outpatient visit last week. Patient underwent procedure 3 days ago. 3 unwitnessed recurrent syncopal events the last 2 days without headache, chest pain, S OB, tongue biting, incontinence symptoms. Some stress with patient mother currently in the hospital. Patient brought to ER for evaluation. 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 Allergies Allergy/AdvReac Type Severity Reaction Status Date / Time hydroxyzine Allergy Severe DYSTONIA Verified 03/31/21 14:28 prochlorperazine Allergy Severe NUCHAL Verified 03/31/21 14:28 DYSTONIA promethazine Allergy Severe NUCHAL Verified 03/31/21 14:28 DYSTONIA oxycodone Allergy Intermediate Numbness Verified 03/31/21 14:28 PERRY Inhibitors AdvReac Intermediate COUGH Verified 03/31/21 14:28 lisinopril AdvReac Intermediate Cough Verified 03/31/21 14:28 metformin AdvReac Intermediate DIARRHEA Verified 03/31/21 14:28 parsley AdvReac Intermediate AGITATION Verified 03/31/21 14:28 tetracycline AdvReac Intermediate DYSPEPSIA Verified 03/31/21 14:28 gabapentin AdvReac Drowsy Verified 03/31/21 14:28 NAUSEA MEDICINES Allergy Unknown SEE NOTE Uncoded 03/31/21 14:28 BELOW Home Medications Medication Instructions Recorded Confirmed Type cholecalciferol (vitamin D3) 25 1,000 unit PO QAM 12/05/17 04/03/21 History mcg (1,000 unit) capsule (Vitamin D3) nitroglycerin 0.4 mg sublingual 0.4 mg SUBLINGUAL DIRECTED PRN 12/05/17 04/03/21 History tablet (Nitrostat) omeprazole 20 mg capsule,delayed 20 mg PO PM 12/05/17 04/03/21 History release furosemide 40 mg tablet 80 mg PO MOWEFRSA 05/18/18 04/03/21 History levothyroxine 100 mcg tablet 100 mcg PO QAM 05/18/18 04/03/21 History folic acid 1 mg tablet 1 mg PO QAM #30 tab 05/21/18 04/03/21 Rx amitriptyline 25 mg tablet 50 mg PO BID 10/08/18 04/03/21 History metoprolol tartrate 25 mg tablet 25 mg PO BID #60 tab 10/08/18 04/03/21 Rx ropinirole 2 mg tablet 2 mg PO TID 10/08/18 04/03/21 History warfarin 5 mg tablet 5 mg PO DAILY 10/22/18 04/03/21 History acetaminophen 500 mg tablet 500 mg PO Q6H PRN 12/31/19 04/03/21 History (Tylenol Extra Strength) lidocaine HCl 4 % (40 mg/mL) 1 applic PO DIRECTED PRN 12/31/19 04/03/21 History mucosal solution magnesium hydroxide 400 mg/5 mL 5 ml PO DAILY PRN 12/31/19 04/03/21 History oral suspension (Milk of Magnesia) spironolactone 25 mg tablet 12.5 mg PO DAILY 12/31/19 04/03/21 History tramadol 50 mg tablet 50 mg PO TID PRN 12/31/19 04/03/21 History furosemide 40 mg tablet 40 mg PO SUTUTH 10/15/20 04/03/21 History rosuvastatin 20 mg tablet 20 mg PO HS 10/15/20 04/03/21 History ascorbic acid (vitamin C) 500 mg 500 mg PO DAILY 03/31/21 04/03/21 History tablet (Vitamin C) Past Med/Surg History Medical History A-fib Anemia chronic; baseline hgb 9-10 range per chart review Anxiety CKD (chronic kidney disease), stage III Diabetes diet controlled GERD (gastroesophageal reflux disease) controlled History of blood transfusion autologous s/p MVR (1993), 09/2018 (post-op) HTN (hypertension) Hx of myocardial infarction 2000, medical management Hyperlipidemia Hypothyroidism Migraines 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 migraine vs. stress related)-- plavix since discontinued Surgical History H/O radioactive iodine thyroid ablation H/O: hysterectomy History of cardiac cath 2000= NO STENTS History of colonoscopy History of tonsillectomy and adenoidectomy History of total left knee replacement Hx of appendectomy Hx of cholecystectomy Hx of mitral valve replacement 1993 (rheumatic valvular disease) Hx of tubal ligation Family History Uncle , of [place] in his 40s Coronary heart disease Social History Smoking Status: Never smoker Second Hand Exposure: No; Hx Alcohol Use: Yes Alcohol type: wine Hx Substance Use: No Preferred Language: Yi Communication Ability: Effective Gauge Machine Operator Required: No Beliefs That Will Affect Care: None marital status: Single Current Living Situation: Parent Current Living Situation Comment: takes care of mother current occupational status: disabled How many Children do You have: 0 Other Information That Helps Us Care for You: No Feels Safe at Home: Yes Safety Concerns: Feels Safe At This Time Assistive Devices: None Review of Systems Review of Systems: As per HPI, all 10 systems reviewed, all other ROS negative Physical Exam Physical Exam: GENERAL: Comfortable, slightly anxious, no respiratory distress SKIN: Pallor,, warm HEENT: Bespectacled, pale palpebral conjunctivae, no ptosis, dry buccal mucosa NECK : Supple, no tenderness CHEST : CTA, no tenderness HEART : Irregular, systolic murmur ABDOMEN: Some distention, nontender EXTREMITIES : bilateral LE swelling, no LE tenderness, no other conspicuous deformities noted NEUROLOGIC : Coherent, no facial asymmetry, mild dysarthria (chronic as per patient ), no other gross focality Results & Data Results & Data ([facility]) Vital Signs (Past 12 Hours) Vital Signs Temp Pulse Pulse Pulse Resp BP BP 04/03/21 04:55 64 16 125/58 L 04/03/21 03:56 66 16 120/49 L 04/03/21 01:00 37.1 C 61 61 16 126/51 L 04/03/21 00:00 102 H 26 H 04/02/21 23:52 37 C 72 81 18 134/69 04/02/21 23:51 04/02/21 23:50 72 21 04/02/21 23:44 83 20 134/69 04/02/21 23:24 36.8 C 82 22 127/77 04/02/21 23:20 78 22 04/02/21 23:10 82 25 H 04/02/21 23:06 72 16 113/64 04/02/21 23:01 80 22 04/02/21 23:00 121/58 L Pulse Ox 04/03/21 04:55 97 04/03/21 03:56 94 04/03/21 01:00 97 04/03/21 00:00 99 04/02/21 23:52 97 04/02/21 23:51 99 04/02/21 23:50 99 04/02/21 23:44 04/02/21 23:24 98 04/02/21 23:20 99 04/02/21 23:10 98 04/02/21 23:06 04/02/21 23:01 100 04/02/21 23:00 Laboratory Results Laboratory Results WBC 7.18 K/uL (4.8-10.8) 04/02/21 23:07 RBC 3.92 M/uL (4.2-5.4) L 04/02/21 23:07 Hgb 10.5 g/dL (12.0-16.0) L 04/02/21 23:07 Hct 34.4 % (37-47) L 04/02/21 23:07 MCV 87.8 fL (80-100) 04/02/21 23:07 MCH 26.8 pg (25-34) 04/02/21 23:07 MCHC 30.5 g/dL (32-36) L 04/02/21 23:07 RDW Std Deviation 48.8 fL (36.4-46.3) H 04/02/21 23:07 RDW Coeff of Courtney 15.1 % (11.5-14.5) H 04/02/21 23:07 Plt Count 162 K/uL (130-400) 04/02/21 23:07 MPV 11.1 fL (7.4-10.4) H 04/02/21 23:07 Immature Gran % (Auto) 0.1 % 04/02/21 23:07 Neut % (Auto) 74.8 % 04/02/21 23:07 Lymph % (Auto) 12.5 % 04/02/21 23:07 [place] % (Auto) 7.1 % 04/02/21 23:07 Eos % (Auto) 5.2 % 04/02/21 23:07 Baso % (Auto) 0.3 % 04/02/21 23:07 Neut # (Auto) 5.37 K/uL (1.4-6.5) 04/02/21 23:07 Lymph # (Auto) 0.90 K/uL (1.2-3.4) L 04/02/21 23:07 [place] # (Auto) 0.51 K/uL (0.11-0.59) 04/02/21 23:07 Eos # (Auto) 0.37 K/uL (0-0.5) 04/02/21 23:07 Baso # (Auto) 0.02 K/uL (0-0.2) 04/02/21 23:07 Immature Gran # (Auto) 0.01 K/uL (0.00-0.02) 04/02/21 23:07 PT 42.4 Seconds (9.0-12.0) H 04/02/21 23:59 INR 4.7 (0.9-1.1) H 04/02/21 23:59 Sodium 139 mmol/L (136-145) 04/02/21 23:07 Potassium 3.4 mmol/L (3.5-5.1) L 04/02/21 23:07 Chloride 100 mmol/L (98-107) 04/02/21 23:07 Carbon Dioxide 32 mmol/L (21-32) 04/02/21 23:07 Anion Gap 7 (3-11) 04/02/21 23:07 BUN 33 mg/dl (6-23) H 04/02/21 23:07 Creatinine 1.91 mg/dl (0.6-1.2) H 04/02/21 23:07 Est Cr Clr Drug Dosing 22.6 ml/min 04/02/21 23:07 Est GFR ( Amer) 30.9 ml/min 04/02/21 23:07 Est GFR (Non-Af Amer) 26.6 ml/min 04/02/21 23:07 BUN/Creatinine Ratio 17.3 (10-20) 04/02/21 23:07 Glucose 158 mg/dl (70-99(Fasting)) H 04/02/21 23:07 POC Glucose 123 mg/dl (70-99) H 04/03/21 03:45 Calcium 10.0 mg/dl (8.5-10.1) 04/02/21 23:07 Magnesium 2.2 mg/dl (1.7-2.4) 04/02/21 23:07 Total Bilirubin 0.6 mg/dl (0.2-1.0) 04/02/21 23:07 AST 26 U/L (13-39) 04/02/21 23:07 ALT 13 U/L (7-52) 04/02/21 23:07 Alkaline Phosphatase 90 U/L (34-104) 04/02/21 23:07 Troponin I < 0.03 ng/ml (0-0.04) 04/02/21 23:07 Total Protein 7.5 gm/dl (6.0-8.3) 04/02/21 23:07 Albumin 4.1 gm/dl (3.4-5.0) 04/02/21 23:07 Globulin 3.4 gm/dl (2.5-4.0) 04/02/21 23:07 Albumin/Globulin Ratio 1.2 (0.9-2) 04/02/21 23:07 TSH 0.507 uIu/ml (0.300-4.500) 04/02/21 23:07 Urine Color Yellow 04/02/21 23:45 Urine Appearance Clear (Clear) 04/02/21 23:45 Urine pH 7.5 (4.5-7.5) 04/02/21 23:45 Ur Specific [place] 1.010 (1.000-1.030) 04/02/21 23:45 Urine Protein 1+ (Negative) H 04/02/21 23:45 Urine Glucose (UA) Negative (Negative) 04/02/21 23:45 Urine Ketones Negative (Negative) 04/02/21 23:45 Urine Blood Negative (Negative) 04/02/21 23:45 Urine Nitrite Negative (Negative) 04/02/21 23:45 Urine Bilirubin Negative (Negative) 04/02/21 23:45 Urine Urobilinogen Negative (Negative) 04/02/21 23:45 Ur Leukocyte Esterase Negative (Negative) 04/02/21 23:45 Urine WBC (Auto) 1-5 /hpf (0-5) 04/02/21 23:45 Urine RBC (Auto) 0-4 /hpf (0-4) 04/02/21 23:45 U Hyaline Cast (Auto) 1-5 /lpf (0-5) 04/02/21 23:45 U Epithel Cells (Auto) 5-10 /lpf (0-5) H 04/02/21 23:45 Urine Bacteria (Auto) Negative (Negative) 04/02/21 23:45 SARS-CoV-2, RNA, NAAT NEGATIVE (NEGATIVE) 04/02/21 23:[address] 04/02/21 23:16 CT head/brain wo con CLINICAL HISTORY: on coumadin -syncopal episode with trauma to the head. COMPARISON STUDY: 01/13/2021 CT DOSE: 614.27 mGy. TECHNIQUE: Standard CT of the Brain was performed without IV contrast. A dose lowering technique was utilized adhering to the principles of ALARA. FINDINGS: Extraaxial space: There is no evidence for subdural hematoma. There are no extra-axial fluid collections. Ventricles and cisterns: The ventricles are normal in size and configuration. There is no evidence for midline shift or mass effect. Parenchyma: There is no subarachnoid or intraparenchymal hemorrhage. There is no evidence for an acute infarct or cerebral edema. There is homogeneous attenuation of the brain parenchyma. There are no gross mass lesions. Osseous structures: There is no evidence for an acute fracture. The visualized paranasal sinuses are clear. The mastoid air cells are clear bilaterally. Soft tissues: There is no evidence for focal soft tissue swelling. IMPRESSION: No acute intracerebral pathology. ACT 112: Negative or not required by law. Electronically signed by: Matt Logan M.D. 04/03/2021 12:04 AM Diagnostic Findings Chest x-ray as per my interpretation: Cardiomegaly, minimal congestion, atelectasis EKG as per my interpretation : Rate 75, A. fib, LAD, LAFB, no ischemia Code Status & VTE Plan VTE Prophylaxis Plan VTE Prophylaxis will be ordered: Yes
[2021-04-03] MEDS: LEVOTHYROXINE SODIUM 100 MCG TABLET PO SCH (05:56)
[2021-04-03 06:28] LABS: Basophils # (auto) 0.02 K/uL (0-0.2); Basophils % (auto) 0.4 %; Eosinophils # (auto) 0.31 K/uL (0-0.5); Eosinophils % (auto) 5.6 %; Hematocrit (blood only) 32.8 % (37-47); Hemoglobin 10.3 g/dL (12.0-16.0); Immature Granulocytes # (auto) 0.01 K/uL (0.00-0.02); Immature Granulocytes % (auto) 0.2 %; Mean Corpuscular Hemoglobin 27.8 pg (25-34); Mean Corpuscular Hgb Conc 31.4 g/dL (32-36); Mean Corpuscular Volume 88.4 fL (80-100); Monocytes # (auto) 0.32 K/uL (0.11-0.59); Monocytes % (auto) 5.8 %; Platelet Count 141 K/uL (130-400); RDW Coefficient of Variation 15.1 % (11.5-14.5); Red Blood Count 3.71 M/uL (4.2-5.4); White Blood Count 5.56 K/uL (4.8-10.8)
[2021-04-03 06:40] LABS: BUN Creatinine Ratio 18.1 (10-20); Calcium 9.9 mg/dl (8.5-10.1); Est GFR (African American) 36.6 ml/min; Est GFR (Non-African American) 31.6 ml/min; Potassium 4.1 mmol/L (3.5-5.1)
[2021-04-03 06:42] LABS: INR 5.4 (0.9-1.1); Prothrombin Time 47.9 Seconds (9.0-12.0)
--- NOTE | 2021-04-03 07:11 | XRay Report ---
XR chest 1V portable CLINICAL HISTORY: renal failure. COMPARISON STUDY: 01/13/2021 TECHNIQUE: 1 view of the chest FINDINGS: Single frontal view of the chest demonstrates the heart size to be mildly enlarged status post previo us cardiothoracic surgery for valve replacement. There is a decreased inspiratory effort with elevati on of the hemidiaphragms and crowding of the bronchovascular markings at the lung bases and centrally . The lungs are clear of alveolar opacities. There is no evidence for pleural effusion. There is evid ence for mild vascular congestion. There is no acute osseous pathology. IMPRESSION: 1. Decreased inspiration with mild vascular congestion. ACT 112: Negative or not required by law. Electronically signed by: Matt Logan M.D. 04/03/2021 7:09 AM
[2021-04-03] MEDS: rOPINIRole HCL 2 MG TABLET PO SCH ×3 (08:35→22:32)
[2021-04-03] MEDS: METOPROLOL TARTRATE 25 MG TAB PO SCH ×2 (08:36→22:29)
[2021-04-03] MEDS: FOLIC ACID 1 MG TAB PO SCH (08:38)
[2021-04-03] MEDS: AMITRIPTYLINE HCL 50 MG TAB PO SCH ×2 (08:38→22:29)
[2021-04-03] MEDS: INSULIN GLARGINE SOLOSTAR 100 UNITS/ML 3 ML PEN SC SCH (08:46)
--- NOTE | 2021-04-03 08:53 | Cardiology Consultation ---
Date of Consultation April 03, 2021 Assessment & Plan (1) Recurrent syncope: (2) Hypokalemia: (3) Dehydration: (4) Atrial fibrillation: (5) History of loop recorder: Patient with recurrent events over the last 6 months. Unwitnessed. Last admission in Dec 2020 with work up unrevealing. Head/neck CTA were normal. Echo revealed stable/normal gradients of mechanical mitral valve, preserved LV function, and underlying moderate TR. She underwent outpatient ZIO without arrhythmias. Due to recurrent events, she underwent LINQ implant last week on 03/31/[address] Vila. She has known chronic afib with controlled rates on low dose metoprolol. since implant, patient reported 4 additional episodes at home over the weekend where she ended up on the floor but does not recall events leading to these episodes. No loss of bowel or bladder. They have all been unwitnessed. Unsure of seizure like activity. Her LINQ was interrogated without significant chris or tachyarrhythmias to correlate with her events. HR's 80-90 range. Her BP has been controlled since admission. She was mildly hypokalemic on admission and supplemented. All events have been while standing or performing chores. Its possible she is having orthostatic hypotension. She has mild LE edema which has improved with titration of diuretics as an outpatient in the fall. However, this is around the time her episodes began. Orthostatic vital signs requested during admission. Recommend compression stockings and ordered. May need to consider reduction in diuretic dosing to see if this aids her symptoms. Consider neuro eval - r/o seizure like activity. Continue all other cardiac medications. Patient is under a lot of stress with ailing mother, who is currently hospitalized and likely being transitioned to comfort care. Consider psych consult as well. Case discussed with Dr. Sutton. Supervising Physician Co-Signing Physician Notes Supervising Physician Attestation: I have personally performed a history and physical examination on the patient. I agree with the physician ophthalmic surgical assistant's findings and plan as documented with the following additions. Subjective: Patient with recurrent fall episodes, initially started 2020. Of note, her elderly mother is currently hospitalized and apparently doing poorly. Exam: Irregular rhythm, crisp prosthetic heart sounds noted Telemetry and loop recorder data reveals rate controlled atrial fibrillation 1-2+ left greater than right lower extremity edema, worse than patient's typical baseline per her description Data: INR 5.4 Assessment and Plan: Recurrent falls History of mechanical mitral valve replacement, goal INR 3-3.5 Chronic rate controlled atrial fibrillation -Agree with holding diuretic therapy today, however will likely need to resume furosemide 40 mg alternating with 80 mg daily tomorrow. -Hold Coumadin. -Knee-high compression stockings. -Orthostatic vital signs. -No indication for pacemaker at present. DVT prophylaxis: As noted, supratherapeutic INR today, Coumadin on hold Judd Sutton, DO History of Present Illness Reason for Consultation: Recurrent Syncope; Pre Syncope Requesting Physician: Dr. Perez Attending Physician: Dr. Sutton History of Present Illness Patient is a 65 year old female, well known to [facility], Dr. Molina as primary spare hand carding. History is complex and includes: 1. 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 2. Chronic atrial fibrillation with borderline tachy Chris syndrome 3. Past embolic myocardial infarction and TIA, on chronic anticoagulation plus antiplatelet therapy with clopidogrel. 4. Type 2 diabetes mellitus. 5. Hyperlipidemia. 6. Chronic renal insufficiency. 7. Acute COVID infection 10/14/2020 treated with monoclonal antibodies as an outpatient 8. Recurrent syncope with borderline tachybrady - having undergone Loop Recorder implant on 03/31/[address] Vila In Dec 2020, patient was admitted for recurrent "falls" reported as syncope and near syncope. These have been unwitnessed. Work up at that time, in Dec 2020, revealed normal head/neck CTA, echo with normal LVEF, no arrhythmias on monitoring tech, with chronic afib, controlled rates. Due to recurrent symptoms, she underwent implantable loop recorder last week, 03/31/[address] Vila. Upon returning home from her device implant, and since Saturday, patient reported 4 additional episodes - 1 on Saturday, 1 on Saturday, and 2 on Saturday, therefore she came to the ER for evaluation. She has difficult recalling the events surrounding these "falls". All she recalls is being on the floor. One episode she was reportedly carrying a laundry basket and ended up under a table with laundry everywhere. 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 The other episodes she was cleaning the kitchen and ended up on the floor. No witnessed episodes. She denies symptoms of dizziness, lightheadedness or palpitations. During these episodes, no tongue biting, loss of bowel or bladder incontinence. No significant injuries. Head CT was unremarkable on admission. She does require chronic Coumadin due to mechanical mitral valve. Her potassium was low on admission and supplemented. SHe admits to poor PO intake of fluids. She denies recent chest pain or SOB. Edema has been stable. She admits to poor PO intake of fluids. She has been told in the past to wear compression stockings but does not. In the fall 2020, her furosemide was increased to 40 mg alternating with 80 mg to aid with edema and SOB. Spironolactone was also added due to hypokalemia. She reported improved edema/dyspnea with these changes She is under a great deal of stress as she has been caring for her ill mother who is also currently admitted and likely being transitioned to comfort measures. Currently, at time of consult, patient feeling ok. No recurrent syncope or near syncope since admission. Has been up to use the restroom without symptoms. No chest pain or SOB. No palpitations. Her Loop Recorder was interrogation and demonstrated chronic afib with controlled rates. During 4 symptomatic events, there was no episodes of tachy or chris arrhythmias. Allergies Allergy/AdvReac Type Severity Reaction Status Date / Time hydroxyzine Allergy Severe DYSTONIA Verified 03/31/21 14:28 prochlorperazine Allergy Severe NUCHAL Verified 03/31/21 14:28 DYSTONIA promethazine Allergy Severe NUCHAL Verified 03/31/21 14:28 DYSTONIA oxycodone Allergy Intermediate Numbness Verified 03/31/21 14:28 PERRY Inhibitors AdvReac Intermediate COUGH Verified 03/31/21 14:28 lisinopril AdvReac Intermediate Cough Verified 03/31/21 14:28 metformin AdvReac Intermediate DIARRHEA Verified 03/31/21 14:28 parsley AdvReac Intermediate AGITATION Verified 03/31/21 14:28 tetracycline AdvReac Intermediate DYSPEPSIA Verified 03/31/21 14:28 gabapentin AdvReac Drowsy Verified 03/31/21 14:28 NAUSEA MEDICINES Allergy Unknown SEE NOTE Uncoded 03/31/21 14:28 BELOW Home Medications Medication Instructions Recorded Confirmed Type cholecalciferol (vitamin D3) 25 1,000 unit PO QAM 12/05/17 04/03/21 History mcg (1,000 unit) capsule (Vitamin D3) nitroglycerin 0.4 mg sublingual 0.4 mg SUBLINGUAL DIRECTED PRN 12/05/17 04/03/21 History tablet (Nitrostat) omeprazole 20 mg capsule,delayed 20 mg PO PM 12/05/17 04/03/21 History release furosemide 40 mg tablet 80 mg PO MOWEFRSA 05/18/18 04/03/21 History levothyroxine 100 mcg tablet 100 mcg PO QAM 05/18/18 04/03/21 History folic acid 1 mg tablet 1 mg PO QAM #30 tab 05/21/18 04/03/21 Rx amitriptyline 25 mg tablet 50 mg PO BID 10/08/18 04/03/21 History metoprolol tartrate 25 mg tablet 25 mg PO BID #60 tab 10/08/18 04/03/21 Rx ropinirole 2 mg tablet 2 mg PO TID 10/08/18 04/03/21 History warfarin 5 mg tablet 5 mg PO DAILY 10/22/18 04/03/21 History acetaminophen 500 mg tablet 500 mg PO Q6H PRN 12/31/19 04/03/21 History (Tylenol Extra Strength) lidocaine HCl 4 % (40 mg/mL) 1 applic PO DIRECTED PRN 12/31/19 04/03/21 History mucosal solution magnesium hydroxide 400 mg/5 mL 5 ml PO DAILY PRN 12/31/19 04/03/21 History oral suspension (Milk of Magnesia) spironolactone 25 mg tablet 12.5 mg PO DAILY 12/31/19 04/03/21 History tramadol 50 mg tablet 50 mg PO TID PRN 12/31/19 04/03/21 History furosemide 40 mg tablet 40 mg PO SUTUTH 10/15/20 04/03/21 History rosuvastatin 20 mg tablet 20 mg PO HS 10/15/20 04/03/21 History ascorbic acid (vitamin C) 500 mg 500 mg PO DAILY 03/31/21 04/03/21 History tablet (Vitamin C) Patient History Medical History A-fib Anemia chronic; baseline hgb 9-10 range per chart review Anxiety CKD (chronic kidney disease), stage III Diabetes diet controlled GERD (gastroesophageal reflux disease) controlled History of blood transfusion autologous s/p MVR (1993), 09/2018 (post-op) HTN (hypertension) Hx of myocardial infarction 2000, medical management Hyperlipidemia Hypothyroidism Migraines 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 migraine vs. stress related)-- plavix since discontinued Surgical History H/O radioactive iodine thyroid ablation H/O: hysterectomy History of cardiac cath 2000= NO STENTS History of colonoscopy History of tonsillectomy and adenoidectomy History of total left knee replacement Hx of appendectomy Hx of cholecystectomy Hx of mitral valve replacement 1993 (rheumatic valvular disease) Hx of tubal ligation Family History Uncle , of [place] in his 40s Coronary heart disease Social History Smoking Status: Never smoker Second Hand Exposure: No; Hx Alcohol Use: Yes Alcohol type: wine Hx Substance Use: No Preferred Language: Divehi Communication Ability: Effective 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[employer] 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 Required: No Beliefs That Will Affect Care: None marital status: Single Current Living Situation: Parent Current Living Situation Comment: takes care of mother current occupational status: disabled How many Children do You have: 0 Other Information That Helps Us Care for You: No Feels Safe at Home: Yes Safety Concerns: Feels Safe At This Time Assistive Devices: None Review of Systems Review of Systems: All systems reviewed & are unremarkable except as noted in HPI & below Physical Exam Constitutional: WD/WN, vitals as above Eyes: PERRL, conjunctivae normal, anicteric sclerae Neck: trachea midline, no thyromegaly Respiratory: normal respiratory effort, lungs clear to auscultation Cardiovascular: Rate/Rhythm: + irregularly irregular Heart Sounds: + murmur (II/ systolic murmur ) Vessels: no JVD and no carotid bruit Extremities: + edema (trace b/l edema with chronic varicosities) Gastrointestinal (Abdomen): normal bowel sounds, soft, nontender, no hepatosplenomegaly Neurologic: PERRL, EOMI, accommodation nl, no face palsy, no dysarthria Psychiatric: Orientation: alert and oriented x 3 Affect: + anxious affect Results & Data ([facility]) Vital Signs (Past 12 Hours) Vital Signs Temp Pulse Pulse Pulse Resp BP BP 04/03/21 08:39 36.7 C 81 18 115/84 04/03/21 05:57 99 H 16 128/61 04/03/21 04:55 64 16 125/58 L 04/03/21 03:56 66 16 120/49 L 04/03/21 01:00 37.1 C 61 61 16 126/51 L 04/03/21 00:00 102 H 26 H 04/02/21 23:52 37 C 72 81 18 134/69 04/02/21 23:51 04/02/21 23:50 72 21 04/02/21 23:44 83 20 134/69 04/02/21 23:24 36.8 C 82 22 127/77 04/02/21 23:20 78 22 04/02/21 23:10 82 25 H 04/02/21 23:06 72 16 113/64 04/02/21 23:01 80 22 04/02/21 23:00 121/58 L Pulse Ox 04/03/21 08:39 95 04/03/21 05:57 99 04/03/21 04:55 97 04/03/21 03:56 94 04/03/21 01:00 97 04/03/21 00:00 99 04/02/21 23:52 97 04/02/21 23:51 99 04/02/21 23:50 99 04/02/21 23:44 04/02/21 23:24 98 04/02/21 23:20 99 04/02/21 23:10 98 04/02/21 23:06 04/02/21 23:01 100 04/02/21 23:00 Laboratory Results 04/03/21 04/03/21 04/03/21 Range/Units 08:43 06:01 06:01 WBC (4.8-10.8) K/uL RBC (4.2-5.4) M/uL Hgb (12.0-16.0) g/dL Hct (37-47) % MCV (80-100) fL MCH (25-34) pg MCHC (32-36) g/dL RDW Std Deviation (36.4-46.3) fL RDW Coeff of Courtney (11.5-14.5) % Plt Count (130-400) K/uL MPV (7.4-10.4) fL Immature Gran % (Auto) % Neut % (Auto) % Lymph % (Auto) % Gibson % (Auto) % Eos % (Auto) % Baso % (Auto) % Neut # (Auto) (1.4-6.5) K/uL Lymph # (Auto) (1.2-3.4) K/uL Gibson # (Auto) (0.11-0.59) K/uL Eos # (Auto) (0-0.5) K/uL Baso # (Auto) (0-0.2) K/uL Immature Gran # (Auto) (0.00-0.02) K/uL PT 47.9 H (9.0-12.0) Seconds INR 5.4 H (0.9-1.1) Sodium 140 (136-145) mmol/L Potassium 4.1 D (3.5-5.1) mmol/L Chloride 105 (98-107) mmol/L Carbon Dioxide 31 (21-32) mmol/L Anion Gap 4 (3-11) BUN 30 H (6-23) mg/dl Creatinine 1.66 H (0.6-1.2) mg/dl Est Cr Clr Drug Dosing 26.0 ml/min Est GFR ( Amer) 36.6 ml/min Est GFR (Non-Af Amer) 31.6 ml/min BUN/Creatinine Ratio 18.1 (10-20) Glucose 130 H (70-99(Fasting)) mg/dl POC Glucose 71 (70-99) mg/dl Calcium 9.9 (8.5-10.1) mg/dl Magnesium (1.7-2.4) mg/dl Total Bilirubin (0.2-1.0) mg/dl AST (13-39) U/L ALT (7-52) U/L Alkaline Phosphatase (34-104) U/L Troponin I (0-0.04) ng/ml Total Protein (6.0-8.3) gm/dl Albumin (3.4-5.0) gm/dl Globulin (2.5-4.0) gm/dl Albumin/Globulin Ratio (0.9-2) TSH (0.300-4.500) uIu/ml Urine Color Urine Appearance (Clear) Urine pH (4.5-7.5) Ur Specific Cecil (1.000-1.030) Urine Protein (Negative) Urine Glucose (UA) (Negative) Urine Ketones (Negative) Urine Blood (Negative) Urine Nitrite (Negative) Urine Bilirubin (Negative) Urine Urobilinogen (Negative) Ur Leukocyte Esterase (Negative) Urine WBC (Auto) (0-5) /hpf Urine RBC (Auto) (0-4) /hpf U Hyaline Cast (Auto) (0-5) /lpf U Epithel Cells (Auto) (0-5) /lpf Urine Bacteria (Auto) (Negative) SARS-CoV-2, RNA, NAAT (NEGATIVE) 04/03/21 04/03/21 04/02/21 Range/Units 06:01 03:45 23:59 WBC 5.56 (4.8-10.8) K/uL RBC 3.71 L (4.2-5.4) M/uL Hgb 10.3 L (12.0-16.0) g/dL Hct 32.8 L (37-47) % MCV 88.4 (80-100) fL MCH 27.8 (25-34) pg MCHC 31.4 L (32-36) g/dL RDW Std Deviation 49.0 H (36.4-46.3) fL RDW Coeff of Courtney 15.1 H (11.5-14.5) % Plt Count 141 (130-400) K/uL MPV 11.0 H (7.4-10.4) fL Immature Gran % (Auto) 0.2 % Neut % (Auto) 70.0 % Lymph % (Auto) 18.0 % Gibson % (Auto) 5.8 % Eos % (Auto) 5.6 % Baso % (Auto) 0.4 % Neut # (Auto) 3.90 (1.4-6.5) K/uL Lymph # (Auto) 1.00 L (1.2-3.4) K/uL Gibson # (Auto) 0.32 (0.11-0.59) K/uL Eos # (Auto) 0.31 (0-0.5) K/uL Baso # (Auto) 0.02 (0-0.2) K/uL Immature Gran # (Auto) 0.01 (0.00-0.02) K/uL PT 42.4 H (9.0-12.0) Seconds INR 4.7 H (0.9-1.1) Sodium (136-145) mmol/L Potassium (3.5-5.1) mmol/L Chloride (98-107) mmol/L Carbon Dioxide (21-32) mmol/L Anion Gap (3-11) BUN (6-23) mg/dl Creatinine (0.6-1.2) mg/dl Est Cr Clr Drug Dosing ml/min Est GFR ( Amer) ml/min Est GFR (Non-Af Amer) ml/min BUN/Creatinine Ratio (10-20) Glucose (70-99(Fasting)) mg/dl POC Glucose 123 H (70-99) mg/dl Calcium (8.5-10.1) mg/dl Magnesium (1.7-2.4) mg/dl Total Bilirubin (0.2-1.0) mg/dl AST (13-39) U/L ALT (7-52) U/L Alkaline Phosphatase (34-104) U/L Troponin I (0-0.04) ng/ml Total Protein (6.0-8.3) gm/dl Albumin (3.4-5.0) gm/dl Globulin (2.5-4.0) gm/dl Albumin/Globulin Ratio (0.9-2) TSH (0.300-4.500) uIu/ml Urine Color Urine Appearance (Clear) Urine pH (4.5-7.5) Ur Specific Cecil (1.000-1.030) Urine Protein (Negative) Urine Glucose (UA) (Negative) Urine Ketones (Negative) Urine Blood (Negative) Urine Nitrite (Negative) Urine Bilirubin (Negative) Urine Urobilinogen (Negative) Ur Leukocyte Esterase (Negative) Urine WBC (Auto) (0-5) /hpf Urine RBC (Auto) (0-4) /hpf U Hyaline Cast (Auto) (0-5) /lpf U Epithel Cells (Auto) (0-5) /lpf Urine Bacteria (Auto) (Negative) SARS-CoV-2, RNA, NAAT (NEGATIVE) 04/02/21 04/02/21 04/02/21 Range/Units 23:47 23:45 23:07 WBC (4.8-10.8) K/uL RBC (4.2-5.4) M/uL Hgb (12.0-16.0) g/dL Hct (37-47) % MCV (80-100) fL MCH (25-34) pg MCHC (32-36) g/dL RDW Std Deviation (36.4-46.3) fL RDW Coeff of Courtney (11.5-14.5) % Plt Count (130-400) K/uL MPV (7.4-10.4) fL Immature Gran % (Auto) % Neut % (Auto) % Lymph % (Auto) % Gibson % (Auto) % Eos % (Auto) % Baso % (Auto) % Neut # (Auto) (1.4-6.5) K/uL Lymph # (Auto) (1.2-3.4) K/uL Gibson # (Auto) (0.11-0.59) K/uL Eos # (Auto) (0-0.5) K/uL Baso # (Auto) (0-0.2) K/uL Immature Gran # (Auto) (0.00-0.02) K/uL PT (9.0-12.0) Seconds INR (0.9-1.1) Sodium (136-145) mmol/L Potassium (3.5-5.1) mmol/L Chloride (98-107) mmol/L Carbon Dioxide (21-32) mmol/L Anion Gap (3-11) BUN (6-23) mg/dl Creatinine (0.6-1.2) mg/dl Est Cr Clr Drug Dosing ml/min Est GFR ( Amer) ml/min Est GFR (Non-Af Amer) ml/min BUN/Creatinine Ratio (10-20) Glucose (70-99(Fasting)) mg/dl POC Glucose (70-99) mg/dl Calcium (8.5-10.1) mg/dl Magnesium (1.7-2.4) mg/dl Total Bilirubin (0.2-1.0) mg/dl AST (13-39) U/L ALT (7-52) U/L Alkaline Phosphatase (34-104) U/L Troponin I < 0.03 (0-0.04) ng/ml Total Protein (6.0-8.3) gm/dl Albumin (3.4-5.0) gm/dl Globulin (2.5-4.0) gm/dl Albumin/Globulin Ratio (0.9-2) TSH (0.300-4.500) uIu/ml Urine Color Yellow Urine Appearance Clear (Clear) Urine pH 7.5 (4.5-7.5) Ur Specific Cecil 1.010 (1.000-1.030) Urine Protein 1+ H (Negative) Urine Glucose (UA) Negative (Negative) Urine Ketones Negative (Negative) Urine Blood Negative (Negative) Urine Nitrite Negative (Negative) Urine Bilirubin Negative (Negative) Urine Urobilinogen Negative (Negative) Ur Leukocyte Esterase Negative (Negative) Urine WBC (Auto) 1-5 (0-5) /hpf Urine RBC (Auto) 0-4 (0-4) /hpf U Hyaline Cast (Auto) 1-5 (0-5) /lpf U Epithel Cells (Auto) 5-10 H (0-5) /lpf Urine Bacteria (Auto) Negative (Negative) SARS-CoV-2, RNA, NAAT NEGATIVE (NEGATIVE) 04/02/21 04/02/21 04/02/21 Range/Units 23:07 23:07 23:07 WBC 7.18 (4.8-10.8) K/uL RBC 3.92 L (4.2-5.4) M/uL Hgb 10.5 L (12.0-16.0) g/dL Hct 34.4 L (37-47) % MCV 87.8 (80-100) fL MCH 26.8 (25-34) pg MCHC 30.5 L (32-36) g/dL RDW Std Deviation 48.8 H (36.4-46.3) fL RDW Coeff of Courtney 15.1 H (11.5-14.5) % Plt Count 162 (130-400) K/uL MPV 11.1 H (7.4-10.4) fL Immature Gran % (Auto) 0.1 % Neut % (Auto) 74.8 % Lymph % (Auto) 12.5 % Gibson % (Auto) 7.1 % Eos % (Auto) 5.2 % Baso % (Auto) 0.3 % Neut # (Auto) 5.37 (1.4-6.5) K/uL Lymph # (Auto) 0.90 L (1.2-3.4) K/uL Gibson # (Auto) 0.51 (0.11-0.59) K/uL Eos # (Auto) 0.37 (0-0.5) K/uL Baso # (Auto) 0.02 (0-0.2) K/uL Immature Gran # (Auto) 0.01 (0.00-0.02) K/uL PT (9.0-12.0) Seconds INR (0.9-1.1) Sodium 139 (136-145) mmol/L Potassium 3.4 L (3.5-5.1) mmol/L Chloride 100 (98-107) mmol/L Carbon Dioxide 32 (21-32) mmol/L Anion Gap 7 (3-11) BUN 33 H (6-23) mg/dl Creatinine 1.91 H (0.6-1.2) mg/dl Est Cr Clr Drug Dosing 22.6 ml/min Est GFR ( Amer) 30.9 ml/min Est GFR (Non-Af Amer) 26.6 ml/min BUN/Creatinine Ratio 17.3 (10-20) Glucose 158 H (70-99(Fasting)) mg/dl POC Glucose (70-99) mg/dl Calcium 10.0 (8.5-10.1) mg/dl Magnesium 2.2 (1.7-2.4) mg/dl Total Bilirubin 0.6 (0.2-1.0) mg/dl AST 26 (13-39) U/L ALT 13 (7-52) U/L Alkaline Phosphatase 90 (34-104) U/L Troponin I (0-0.04) ng/ml Total Protein 7.5 (6.0-8.3) gm/dl Albumin 4.1 (3.4-5.0) gm/dl Globulin 3.4 (2.5-4.0) gm/dl Albumin/Globulin Ratio 1.2 (0.9-2) TSH 0.507 (0.300-4.500) uIu/ml Urine Color Urine Appearance (Clear) Urine pH (4.5-7.5) Ur Specific Cecil (1.000-1.030) Urine Protein (Negative) Urine Glucose (UA) (Negative) Urine Ketones (Negative) Urine Blood (Negative) Urine Nitrite (Negative) Urine Bilirubin (Negative) Urine Urobilinogen (Negative) Ur Leukocyte Esterase (Negative) Urine WBC (Auto) (0-5) /hpf Urine RBC (Auto) (0-4) /hpf U Hyaline Cast (Auto) (0-5) /lpf U Epithel Cells (Auto) (0-5) /lpf Urine Bacteria (Auto) (Negative) SARS-CoV-2, RNA, NAAT (NEGATIVE) Diagnostic Findings Telemetry reviewed: atrial fibrillation with controlled rates ranging 80-90's. No pauses or bradyarrhythmias LINQ Interrogation reviewed: Chronic afib, controlled rates, HR in the 90's during times of syncope/near syncope. No bradyarrhythmias or pauses EKG on admission: Atrial fibrillation with controlled ventricular rates LAFB No acute changes Chest xray on admission: FINDINGS: Single frontal view of the chest demonstrates the heart size to be mildly enlarged status post previous cardiothoracic surgery for valve replacement. There is a decreased inspiratory effort with elevation of the hemidiaphragms and crowding of the bronchovascular markings at the lung bases and centrally. The lungs are clear of alveolar opacities. There is no evidence for pleural effusion. There is evidence for mild vascular congestion. There is no acute osseous pathology. IMPRESSION: 1. Decreased inspiration with mild vascular congestion. Head CT on admission: IMPRESSION: No acute intracerebral pathology. Prior DATA reviewed Echo report reviewed from Dec 2020: Interpretation Summary The primary indication after review was deemed appropriate and the examination was performed. Normal LV chamber size and wall thickness. Normal LV systolic function without regional wall motion abnormality, EF 61% as calculated by the biplane method of discs. Mild aortic valve sclerosis without stenosis. Mild aortic regurgitation. There is a mitral valve central disc (Roe-Medtronic type) mechanical prosthesis present. The mitral valve disc motion is normal. The mitral valve prosthesis systolic gradients are normal for this type prosthesis. Significant mitral valve prosthesis regurgitation is absent. Moderate tricuspid regurgitation. Severe biatrial enlargement. The estimated pulmonary artery systolic pressure is 40mm Hg. Prior outpatient [facility]IO In Dec 2020: CONCLUSIONS: Preliminary Findings Atrial Fibrillation occurred continuously (100% burden), ranging from 49- 144 bpm (avg of 85 bpm). Isolated VEs were rare (<1.0%), VE Couplets were rare (<1.0%), and no VE Triplets were present. Ventricular Trigeminy was present. Agree with the above interpretation and findings. The patient's triggered events and diary entries correlated to atrial fibrillation and no other significant arrhythmias. Medications Administered Current Inpatient Medications Acetaminophen (Acetaminophen 325 Mg Tab) 650 mg PO Q4H PRN PRN Reason: Pain or Fever Stop: 05/03/21 03:35 Hydrocodone Bitart/Acetaminophen (Hydrocodone/Acetamophen 5/325mg Tab) 1 tab PO QID PRN PRN Reason: Pain Stop: 04/17/21 02:39 Amitriptyline HCl (Amitriptyline Hcl 50 Mg Tab) 50 mg PO BID PRISCILA Stop: 05/03/21 08:59 Last Admin: 04/03/21 08:38 Dose: 50 mg Documented by: Dextrose (Dextrose 50% 50 Ml Syringe) 25 - 50 ml IV UD PRN; Protocol PRN Reason: Hypoglycemia Protocol Stop: 05/03/21 03:35 Folic Acid (Folic Acid 1 Mg Tab) 1 mg PO QAM PRISCILA Stop: 05/03/21 08:59 Last Admin: 04/03/21 08:38 Dose: 1 mg Documented by: Glucagon (Glucagon For Inj 1 Mg Vial) 1 mg SQ UD PRN; Protocol PRN Reason: Hypoglycemia Protocol Stop: 05/03/21 03:35 Glucose (Glucose 10 Tabs/Tube) 4 - 8 tabs PO UD PRN; Protocol PRN Reason: Hypoglycemia Protocol Stop: 05/03/21 03:35 Glucose (Glucose 40% Gel 15 Gm Tube) 15 - 30 gm PO UD PRN; Protocol PRN Reason: Hypoglycemia Protocol Stop: 05/03/21 03:35 Insulin Aspart (Insulin Aspart Per Unit) 0 units SC ACHS PRISCILA Stop: 05/03/21 03:35 Last Admin: 04/03/21 08:46 Dose: Not Given Documented by: Insulin Glargine (Insulin Glargine Solostar 100 Units/Ml 3 Ml Pen) 5 units SC DAILY PRISCILA Stop: 05/03/21 08:59 Last Admin: 04/03/21 08:46 Dose: Not Given Documented by: Levothyroxine Sodium (Levothyroxine Sodium 100 Mcg Tablet) 100 mcg PO DAILYBB RPISCILA Stop: 05/03/21 06:29 Last Admin: 04/03/21 05:56 Dose: 100 mcg Documented by: Metoclopramide HCl (Metoclopramide Hcl Inj 5 Mg/Ml 2 Ml Vial) 5 mg IV Q6H PRN PRN Reason: nv Stop: 05/03/21 03:35 Metoprolol Tartrate (Metoprolol Tartrate 25 Mg Tab) 12.5 mg PO BID PRISCILA Stop: 05/03/21 08:59 Last Admin: 04/03/21 08:36 Dose: 12.5 mg Documented by: Miscellaneous (Carbohydrates For Hypoglycemia ) 15 - 30 gm PO UD PRN PRN Reason: Hypoglycemia Protocol Stop: 05/03/21 03:35 Pantoprazole Sodium (Pantoprazole 40 Mg Tab) 40 mg PO PM PRISCILA Stop: 05/03/21 20:59 Ropinirole HCl (Ropinirole Hcl 2 Mg Tablet) 2 mg PO TID PRISCILA Stop: 05/03/21 08:59 Last Admin: 04/03/21 08:35 Dose: 2 mg Documented by: Rosuvastatin Calcium (Rosuvastatin Calcium 20 Mg Tab) 20 mg PO HS PRISCILA Stop: 05/03/21 20:59 Addendum April 03, 2021 12:01 (1) Atrial fibrillation Atrial fibrillation type: unspecified Qualified Code(s): I48.91 - Unspecified atrial fibrillation
--- NOTE | 2021-04-03 13:17 | Electroencephalogram ---
EEG Procedure Note Date of Service April 03, 2021 Start / End Times Start Time: 1232 End Time: 1252 Referring Physician Justin Ryan MD History Recurrent syncopal events of uncertain origin possible orthostasis possible seizures none witnessed Home Medication List Medication Instructions Recorded Confirmed Type cholecalciferol (vitamin D3) 25 1,000 unit PO QAM 12/05/17 04/03/21 History mcg (1,000 unit) capsule (Vitamin D3) nitroglycerin 0.4 mg sublingual 0.4 mg SUBLINGUAL DIRECTED PRN 12/05/17 04/03/21 History tablet (Nitrostat) omeprazole 20 mg capsule,delayed 20 mg PO PM 12/05/17 04/03/21 History release furosemide 40 mg tablet 80 mg PO MOWEFRSA 05/18/18 04/03/21 History levothyroxine 100 mcg tablet 100 mcg PO QAM 05/18/18 04/03/21 History folic acid 1 mg tablet 1 mg PO QAM #30 tab 05/21/18 04/03/21 Rx amitriptyline 25 mg tablet 50 mg PO BID 10/08/18 04/03/21 History metoprolol tartrate 25 mg tablet 25 mg PO BID #60 tab 10/08/18 04/03/21 Rx ropinirole 2 mg tablet 2 mg PO TID 10/08/18 04/03/21 History warfarin 5 mg tablet 5 mg PO DAILY 10/22/18 04/03/21 History acetaminophen 500 mg tablet 500 mg PO Q6H PRN 12/31/19 04/03/21 History (Tylenol Extra Strength) lidocaine HCl 4 % (40 mg/mL) 1 applic PO DIRECTED PRN 12/31/19 04/03/21 History mucosal solution magnesium hydroxide 400 mg/5 mL 5 ml PO DAILY PRN 12/31/19 04/03/21 History oral suspension (Milk of Magnesia) spironolactone 25 mg tablet 12.5 mg PO DAILY 12/31/19 04/03/21 History tramadol 50 mg tablet 50 mg PO TID PRN 12/31/19 04/03/21 History furosemide 40 mg tablet 40 mg PO SUTUTH 10/15/20 04/03/21 History rosuvastatin 20 mg tablet 20 mg PO HS 10/15/20 04/03/21 History ascorbic acid (vitamin C) 500 mg 500 mg PO DAILY 03/31/21 04/03/21 History tablet (Vitamin C) Inpatient Medication List Amitriptyline HCl (Amitriptyline Hcl 50 Mg Tab) 50 mg PO BID PRISCILA Stop: 05/03/21 08:59 Last Admin: 04/03/21 08:38 Dose: 50 mg Documented by: [id number] Folic Acid (Folic Acid 1 Mg Tab) 1 mg PO QAM PRISCILA Stop: 05/03/21 08:59 Last Admin: 04/03/21 08:38 Dose: 1 mg Documented by: [id number] Insulin Aspart (Insulin Aspart Per Unit) 0 units SC ACHS PRISCILA Stop: 05/03/21 03:35 Last Admin: 04/03/21 11:37 Dose: Not Given Documented by: [id number] Cosigned by: [id number] Admin: 04/03/21 08:46 Dose: Not Given Documented by: [id number] Admin: 04/03/21 03:53 Dose: Not Given Documented by: [id number] Cosigned by: [id number] Insulin Glargine (Insulin Glargine Solostar 100 Units/Ml 3 Ml Pen) 5 units SC DAILY PRISCILA Stop: 05/03/21 08:59 Last Admin: 04/03/21 08:46 Dose: Not Given Documented by: [id number] Levothyroxine Sodium (Levothyroxine Sodium 100 Mcg Tablet) 100 mcg PO DAILYBB PRISCILA Stop: 05/03/21 06:29 Last Admin: 04/03/21 05:56 Dose: 100 mcg Documented by: [id number] Metoprolol Tartrate (Metoprolol Tartrate 25 Mg Tab) 12.5 mg PO BID PRISCILA Stop: 05/03/21 08:59 Last Admin: 04/03/21 08:36 Dose: 12.5 mg Documented by: [id number] Ropinirole HCl (Ropinirole Hcl 2 Mg Tablet) 2 mg PO TID PRISCILA Stop: 05/03/21 08:59 Last Admin: 04/03/21 08:35 Dose: 2 mg Documented by: [id number] Discontinued Medications Sodium Chloride (Nss) 500 mls @ 999 mls/hr IV .Q31M ONE Stop: 04/03/21 02:01 Last Infusion: 04/03/21 03:18 Dose: 0 mls/hr Documented by: [id number] Admin: 04/03/21 02:06 Dose: 999 mls/hr Documented by: [id number] Sodium Chloride (Nss) 500 mls @ 125 mls/hr IV .Q4H PRISCILA Stop: 05/03/21 01:44 Last Infusion: 04/03/21 03:31 Dose: 0 mls/hr Documented by: [id number] Admin: 04/03/21 02:06 Dose: 125 mls/hr Documented by: [id number] Potassium Chloride (Potassium Chloride Crtab 20 Meq Tabcr) 40 meq PO NOW STA Stop: 04/03/21 01:49 Last Admin: 04/03/21 02:06 Dose: 40 meq Documented by: [id number] Potassium Chloride (Potassium Chloride Crtab 20 Meq Tabcr) 40 meq PO ONE ONE Stop: 04/03/21 03:31 Last Admin: 04/03/21 03:53 Dose: 40 meq Documented by: [id number] Description This is a 21 electrode EEG with a single channel dedicated to limited EKG. The electrodes were placed in accordance with the International 10-20 system. This EEG was done as a bedside recording and is of excellent technical quality. Photic stimulation was performed. Drowsiness light sleep not recorded. Video analysis of patient movement was obtained Under these conditions there is evidence for a normal background rhythm in the alpha range of up to 9 to 10 Hz maximum frequency of up to 30 V maximal amplitude. This is maximum posterior head regions bilaterally symmetrical polymorphic mid frequency theta activity seen over the central regions in a symmetrical fashion. This is a modest voltage. Beta activity seen bifrontally. Photic symmetrical to modify response without a photo myogenic or photoparoxysmal component No potentially epileptiform discharges seen Interpretation This is a normal study during wakefulness without evidence for a focal generalized encephalopathy without evidence for potential epileptogenic activity Clinical Correlation Is a normal EEG during wakefulness with no focal generalized abnormalities and no evidence for potential epileptiform discharges. In light of the recurrent syncopal events of uncertain causation an outpatient 72-hour ambulatory EEG monitoring study may be of value and could be scheduled through the [facility] neurology office if desired by the current attending physician staff. Outpa tient neurologic assessment after performance of the ambulatory study may not be of more value Aditya German MD
[2021-04-03] MEDS ORDERED: ALBUMIN 25% 12.5 GM/50 ML VIAL IV ONE (20:57)
[2021-04-03] MEDS: ROSUVASTATIN CALCIUM 20 MG TAB PO SCH (22:32)
[2021-04-03] MEDS: PANTOprazole 40 MG TAB PO SCH (22:33)
--- NOTE | 2021-04-03 22:33 | Electrocardiogram Report ---
Test Reason : Blood Pressure : / mmHG Vent. Rate : 073 BPM Atrial Rate : 046 BPM P-R Int : 000 ms QRS Dur : 096 ms QT Int : 414 ms P-R-T Axes : 000 -48 030 degrees QTc Int : 456 ms Poor data quality, interpretation may be adversely affected Atrial fibrillation Left anterior fascicular block Nonspecific ST and T wave abnormality Abnormal ECG When compared with ECG of 15-JAN-2021 06:26, Nonspecific T wave abnormality now evident in Inferior leads Confirmed by Yonas Verma ([id number]) on 04/03/2021 10:33:29 PM Referred By: REFERRED SELF Confirmed By:Yonas Verma
[2021-04-03] MEDS: ACETAMINOPHEN 325 MG TAB PO PRN (23:15)
[2021-04-04] MEDS ORDERED: NITROGLYCERIN 2% OINTMENT 30GM TUBE ONE (01:55)
[2021-04-04] MEDS ORDERED: NITROGLYCERIN SL 0.4 MG/TAB TAB SL STA (02:05)
[2021-04-04] MEDS ORDERED: NITROGLYCERIN SL 0.4 MG/TAB TAB ONE (02:14)
[2021-04-04 02:30] LABS: Basophils # (auto) 0.02 K/uL (0-0.2); Basophils % (auto) 0.3 %; Eosinophils # (auto) 0.39 K/uL (0-0.5); Eosinophils % (auto) 6.8 %; Hematocrit (blood only) 30.8 % (37-47); Hemoglobin 9.5 g/dL (12.0-16.0); Lymphocytes # (auto) 1.04 K/uL (1.2-3.4); Lymphocytes % (auto) 18.1 %; Mean Corpuscular Hemoglobin 27.1 pg (25-34); Mean Corpuscular Hgb Conc 30.8 g/dL (32-36); Mean Platelet Volume 10.7 fL (7.4-10.4); Monocytes % (auto) 5.2 %; Neutrophils % (auto) 69.6 %; Platelet Count 129 K/uL (130-400); RDW Coefficient of Variation 15.3 % (11.5-14.5); RDW Standard Deviation 49.4 fL (36.4-46.3); White Blood Count 5.75 K/uL (4.8-10.8)
[2021-04-04 02:49] LABS: Prothrombin Time 60.2 Seconds (9.0-12.0)
[2021-04-04 02:50] LABS: INR 6.9 (0.9-1.1)
[2021-04-04 02:55] LABS: BUN Creatinine Ratio 12.9 (10-20); Calcium 9.7 mg/dl (8.5-10.1); Creatinine Clr Calc Pharmacy 24.3 ml/min; Est GFR (African American) 33.6 ml/min; Potassium 3.9 mmol/L (3.5-5.1); Troponin I 0.03 ng/ml (0-0.04)
[2021-04-04] MEDS ORDERED: PHYTONADIONE 5 MG TAB PO STA (03:06)
[2021-04-04] MEDS ORDERED: [UNRECOGNIZED DRUG - OTHER] PO STA (03:44)
[2021-04-04] MEDS ORDERED: ORA PO STA (03:44)
[2021-04-04] MEDS ORDERED: PHYTONADIONE PED PO STA (03:44)
[2021-04-04] MEDS ORDERED: ORA SWEET PO STA (03:44)
[2021-04-04] MEDS: LEVOTHYROXINE SODIUM 100 MCG TABLET PO SCH (05:54)
[2021-04-04] MEDS: rOPINIRole HCL 2 MG TABLET PO SCH ×3 (09:55→19:52)
[2021-04-04] MEDS: ACETAMINOPHEN 325 MG TAB PO PRN ×2 (09:55→19:49)
[2021-04-04] MEDS: METOPROLOL TARTRATE 25 MG TAB PO SCH ×2 (09:55→19:52)
[2021-04-04] MEDS: FOLIC ACID 1 MG TAB PO SCH (09:56)
[2021-04-04] MEDS: AMITRIPTYLINE HCL 50 MG TAB PO SCH ×2 (09:56→19:52)
--- NOTE | 2021-04-04 10:01 | Hospitalist Progress Note ---
Date of Service April 04, 2021 Assessment & Plan (1) Recurrent syncope: Plan: Differentials include : symptomatic bradycardia, hx SSS Orthostasis Seizures, history embolic CVA hx mechanical MVR on Coumadin, INR supratherapeutic hypertension stable hyperlipidemia on statin Rx DM2 diet-controlled, well-controlled as of recent hemoglobin A1c of 24 January 2021 CRI, creatinine at baseline Hypothyroidism, euthyroid chronic anemia, hemoglobin at baseline Hypokalemia secondary to home diuretic Rx PCU-LINQ Decreased maintenance of beta-marjorie to 12.5 BID Orthostatic vitals, EEG for additional recurrent syncope work-up, Neg, Poss Amb EEG at [facility] Cardiology on case Re: Recurrent syncope, history recent loop recorder implantation Replaced potassium Basal insulin, ISS BG goal 1 10-1 40, carb count coverage DVT prophylaxis. Coumadin INR goal between 2.5-3.5 INR higher today at 6.9, cont to hold, Make inpatient Full code ROS-No Headache, No Visual Changes, No Nausea, No Vomiting, No Fever, No Chills, No Neck Pain or Stiffness, No Chest Pain, No Palpitations, No SOB, No BENAVIDES, No Cough, No Sputum, No Wheezing, No Abdominal Pain, No Diarrhea, No Hematemesis, No Hemoptysis, No Unexpected Weight Loss, No Flank pain, No Melena, No Hematochezia, No Frequency, No Urgency, No Burning, No Hematuria, No Rashes, No Diaphoresis. Appetite is Normal Physical Exam Gen-AAO x 3, NAD, Afebrile Head-NCAT, EOMI, PERRLA, Anicteric Sclera, No Posterior Pharyngeal Erythema Neck-Supple, No JVD, No Thyromegaly, No Masses, No LAD, No Bruits Lungs-Clear to Auscultation Bilaterally, No Rales, No Rhonchi, No Wheezing, No Crepitus Chest-No S4, +S1, +S2, No S3, No Murmurs, No Rubs, No Gallops, No Ectopy Abdomen-Soft, Bowel Sounds Present, Non Tender, Non Distended, No Hepatomegaly, No Splenomegaly, No Palpable Masses, No Rebound, No Rigidity, No Guarding Musculoskeletal-Full Range of Motion Bilaterally, No CVAT Extremities-No Cyanosis, No Clubbing, No Edema Nuero-Cranial Nerves II-XII grossly intact, Motor WNL, DTRs WNL, Strength WNL, Non Focal Psych-Normal Mood Admission and Anticipated Discharge Date Admission Date: April 03, 2021 Subjective Patient seen, for LINQ today c Dr Vila Results & Data Results & Data ([facility]) Vital Signs (Past 12 Hours) Vital Signs Pulse Resp BP Pulse Ox 04/04/21 05:55 81 18 119/70 99 04/04/21 02:00 72 16 90/56 L 94 Laboratory Results Current Diagnoses Dehydration (04/03/21) Hypokalemia (04/03/21) Unspecified atrial fibrillation (04/03/21) Syncope and collapse (04/03/21) Other specified postprocedural states (04/03/21) Allergies hydroxyzine Allergy (Severe, Verified 03/31/21 14:28) DYSTONIA prochlorperazine Allergy (Severe, Verified 03/31/21 14:28) NUCHAL DYSTONIA promethazine Allergy (Severe, Verified 03/31/21 14:28) NUCHAL DYSTONIA oxycodone Allergy (Intermediate, Verified 03/31/21 14:28) Numbness PERRY Inhibitors Adverse Reaction (Intermediate, Verified 03/31/21 14:28) COUGH lisinopril Adverse Reaction (Intermediate, Verified 03/31/21 14:28) Cough metformin Adverse Reaction (Intermediate, Verified 03/31/21 14:28) DIARRHEA parsley Adverse Reaction (Intermediate, Verified 03/31/21 14:28) AGITATION tetracycline Adverse Reaction (Intermediate, Verified 03/31/21 14:28) DYSPEPSIA gabapentin Adverse Reaction (Verified 03/31/21 14:28) Drowsy NAUSEA MEDICINES Allergy (Unknown, Uncoded 03/31/21 14:28) SEE NOTE BELOW Height/Weight/Isolation Height 5 ft 2 in Weight 56.8 kg Chemistry 04/02/21 04/03/21 04/04/21 23:07 06:01 02:22 Sodium 139 140 136 Potassium 3.4 L 4.1 D 3.9 Chloride 100 105 105 Carbon Dioxide 32 31 26 Anion Gap 7 4 5 BUN 33 H 30 H 23 Creatinine 1.91 H 1.66 H 1.78 H Glucose 158 H 130 H 108 H Urinalysis 04/02/21 23:45 Urine Color Yellow Urine Appearance Clear Urine pH 7.5 Ur Specific [place] 1.010 Urine Protein 1+ H Urine Glucose (UA) Negative Urine Ketones Negative Urine Blood Negative Urine Nitrite Negative Urine Bilirubin Negative
[2021-04-04] MEDS: INSULIN GLARGINE SOLOSTAR 100 UNITS/ML 3 ML PEN SC SCH (10:07)
[2021-04-04] MEDS: INSULIN ASPART PER UNIT SC SCH ×4 (10:09→20:51)
--- NOTE | 2021-04-04 10:13 | XRay Report ---
XR chest 1V portable HISTORY: 65 years-old Female increased rales coarsened lung sounds COMPARISON: Chest radiograph 04/03/2021 TECHNIQUE: Portable AP view of the chest FINDINGS: Cardiac silhouette is enlarged. Prior median sternotomy with cardiac valvular prosthesis. Loop record er device. Pulmonary vascular congestion with mild coarsening of the interstitium. No pneumothorax or large pleural effusion. Mild linear bibasilar atelectasis/scarring. Degenerative changes of the shou lders and spine. IMPRESSION: 1. Cardiomegaly with pulmonary vascular congestion and interstitial coarsening suggestive of mild pul monary edema. 2. Mild bibasilar atelectasis. ACT 112: Negative or not required by law. The above report was generated using voice recognition software. It may contain grammatical, syntax o r spelling errors. Electronically signed by: Gasper Scott M.D. 04/04/2021 10:11 AM
[2021-04-04] MEDS ORDERED: FUROSEMIDE 40 MG/4 ML VIAL IV ONE (11:41)
--- NOTE | 2021-04-04 11:50 | Cardiology Progress Note ---
Date of Service April 04, 2021 Assessment & Plan (1) Recurrent syncope: (2) Hypokalemia: (3) Dehydration: (4) Atrial fibrillation: (5) History of loop recorder: Plan: Patient with recurrent events over the last 6 months. Unwitnessed. Last admission in Dec 2020 with work up unrevealing. Head/neck CTA were normal. Echo revealed stable/normal gradients of mechanical mitral valve, preserved LV function, and underlying moderate TR. She underwent outpatient ZIO without arrhythmias. Due to recurrent events, she underwent LINQ implant last week on 03/31/[address] Vila. No arrhythmia correlating with syncopal spells thus far on LINQ She has known chronic afib with controlled rates on low dose metoprolol. No recurrent events since admission. EEG was unremarkable. Today she has developed worsening bibasilar rales since holding diuretics. Given one dose IV furosemide today, resume home dose spironolactone 12.5 mg daily Resume oral furosemide tomorrow 80 mg alternating with 40 mg WOLFGANG hose advised. INR supratherapeutic again this morning. Received VIt K. Goal INR given mechanical valve is 3.0-3.5. Coumadin on hold today Continue all other cardiac medications. Case discussed with Dr. Sutton. Admission and Anticipated Discharge Date Admission Date: April 04, 2021 Supervising Physician Co-Signing Physician Notes Supervising Physician Attestation: I have personally performed a history and physical examination on the patient. I agree with the physician museum assistant's findings and plan as documented with the following additions. Subjective: No complaints. Exam: Atrial fibrillation in 70s 80s noted on telemetry, crisp prosthetic heart sounds noted Lower extremity edema improved Data: INR 6.9 at 2:22 AM, received 1 mg IV vitamin K, 6.0 today 1457 Assessment and Plan: Not certain if I would characterize her recent episodes of syncope as much as recurrent falls Blood pressure stable, no bradycardia or tachycardia to explain events History of rheumatic heart disease, remote mechanical mitral valve prosthesis for which she is on chronic Coumadin, noted coagulopathy. Goal INR 33 0.5 Question how much stress is playing a role with the illness of her mother. -Hold Coumadin -Resume outpatient furosemide Judd Sutton, DO Subjective Patient resting in bed comfortably. Reports one episode of dizziness yesterday but no falls/syncope. EEG was completed and without acute findings. BP has been controlled. She notes mild hoarseness today but denies worsening SOB. No chest pain. Upset about her mother being placed on hospice. Review of Systems Review of Systems: All systems reviewed & are unremarkable except as noted in HPI & below Physical Exam Constitutional: WD/WN, vitals as above Eyes: PERRL, conjunctivae normal, anicteric sclerae Neck: trachea midline, no thyromegaly Respiratory: normal respiratory effort Auscultation: + crackles (bilateral) Cardiovascular: Rate/Rhythm: + irregularly irregular Heart Sounds: + murmur (II/ systolic murmur ) Vessels: no JVD and no carotid bruit Extremities: + edema (trace b/l edema with chronic varicosities) Gastrointestinal (Abdomen): normal bowel sounds, soft, nontender, no hepatosplenomegaly Neurologic: PERRL, EOMI, accommodation nl, no face palsy, no dysarthria Psychiatric: Orientation: alert and oriented x 3 Affect: + anxious affect Results & Data ([facility]) Vital Signs (Past 12 Hours) Vital Signs Temp Pulse Resp BP Pulse Ox 04/04/21 10:00 36.6 C 86 18 107/75 99 04/04/21 05:55 81 18 119/70 99 04/04/21 02:00 72 16 90/56 L 94 Laboratory Results 04/04/21 04/04/21 04/04/21 Range/Units 07:44 06:00 02:22 WBC (4.8-10.8) K/uL RBC (4.2-5.4) M/uL Hgb (12.0-16.0) g/dL Hct (37-47) % MCV (80-100) fL MCH (25-34) pg MCHC (32-36) g/dL RDW Std Deviation (36.4-46.3) fL RDW Coeff of Courtney (11.5-14.5) % Plt Count (130-400) K/uL MPV (7.4-10.4) fL Immature Gran % (Auto) % Neut % (Auto) % Lymph % (Auto) % Warren % (Auto) % Eos % (Auto) % Baso % (Auto) % Neut # (Auto) (1.4-6.5) K/uL Lymph # (Auto) (1.2-3.4) K/uL Warren # (Auto) (0.11-0.59) K/uL Eos # (Auto) (0-0.5) K/uL Baso # (Auto) (0-0.2) K/uL Immature Gran # (Auto) (0.00-0.02) K/uL PT (9.0-12.0) Seconds INR (0.9-1.1) Sodium 136 (136-145) mmol/L Potassium 3.9 (3.5-5.1) mmol/L Chloride 105 (98-107) mmol/L Carbon Dioxide 26 (21-32) mmol/L Anion Gap 5 (3-11) BUN 23 (6-23) mg/dl Creatinine 1.78 H (0.6-1.2) mg/dl Est Cr Clr Drug Dosing 24.3 ml/min Est GFR ( Amer) 33.6 ml/min Est GFR (Non-Af Amer) 29.0 ml/min BUN/Creatinine Ratio 12.9 (10-20) Glucose 108 H (70-99(Fasting)) mg/dl POC Glucose 112 H (70-99) mg/dl Calcium 9.7 (8.5-10.1) mg/dl Troponin I 0.03 0.03 (0-0.04) ng/ml 04/04/21 04/04/21 04/03/21 Range/Units 02:22 02:22 22:27 WBC 5.75 (4.8-10.8) K/uL RBC 3.50 L (4.2-5.4) M/uL Hgb 9.5 L (12.0-16.0) g/dL Hct 30.8 L (37-47) % MCV 88.0 (80-100) fL MCH 27.1 (25-34) pg MCHC 30.8 L (32-36) g/dL RDW Std Deviation 49.4 H (36.4-46.3) fL RDW Coeff of Courtney 15.3 H (11.5-14.5) % Plt Count 129 L (130-400) K/uL MPV 10.7 H (7.4-10.4) fL Immature Gran % (Auto) 0.0 % Neut % (Auto) 69.6 % Lymph % (Auto) 18.1 % Warren % (Auto) 5.2 % Eos % (Auto) 6.8 % Baso % (Auto) 0.3 % Neut # (Auto) 4.00 (1.4-6.5) K/uL Lymph # (Auto) 1.04 L (1.2-3.4) K/uL Warren # (Auto) 0.30 (0.11-0.59) K/uL Eos # (Auto) 0.39 (0-0.5) K/uL Baso # (Auto) 0.02 (0-0.2) K/uL Immature Gran # (Auto) 0.00 (0.00-0.02) K/uL PT 60.2 H (9.0-12.0) Seconds INR 6.9 H* (0.9-1.1) Sodium (136-145) mmol/L Potassium (3.5-5.1) mmol/L Chloride (98-107) mmol/L Carbon Dioxide (21-32) mmol/L Anion Gap (3-11) BUN (6-23) mg/dl Creatinine (0.6-1.2) mg/dl Est Cr Clr Drug Dosing ml/min Est GFR ( Amer) ml/min Est GFR (Non-Af Amer) ml/min BUN/Creatinine Ratio (10-20) Glucose (70-99(Fasting)) mg/dl POC Glucose 98 (70-99) mg/dl Calcium (8.5-10.1) mg/dl Troponin I (0-0.04) ng/ml 04/03/21 Range/Units 21:09 WBC (4.8-10.8) K/uL RBC (4.2-5.4) M/uL Hgb (12.0-16.0) g/dL Hct (37-47) % MCV (80-100) fL MCH (25-34) pg MCHC (32-36) g/dL RDW Std Deviation (36.4-46.3) fL RDW Coeff of Courtney (11.5-14.5) % Plt Count (130-400) K/uL MPV (7.4-10.4) fL Immature Gran % (Auto) % Neut % (Auto) % Lymph % (Auto) % Warren % (Auto) % Eos % (Auto) % Baso % (Auto) % Neut # (Auto) (1.4-6.5) K/uL Lymph # (Auto) (1.2-3.4) K/uL Warren # (Auto) (0.11-0.59) K/uL Eos # (Auto) (0-0.5) K/uL Baso # (Auto) (0-0.2) K/uL Immature Gran # (Auto) (0.00-0.02) K/uL PT (9.0-12.0) Seconds INR (0.9-1.1) Sodium (136-145) mmol/L Potassium (3.5-5.1) mmol/L Chloride (98-107) mmol/L Carbon Dioxide (21-32) mmol/L Anion Gap (3-11) BUN (6-23) mg/dl Creatinine (0.6-1.2) mg/dl Est Cr Clr Drug Dosing ml/min Est GFR ( Amer) ml/min Est GFR (Non-Af Amer) ml/min BUN/Creatinine Ratio (10-20) Glucose (70-99(Fasting)) mg/dl POC Glucose 109 H (70-99) mg/dl Calcium (8.5-10.1) mg/dl Troponin I (0-0.04) ng/ml Diagnostic Findings Telemetry reviewed - Atrial fibrillation with controlled rates. no concerning arrhythmias. no bradycardia Chest xray updated today: IMPRESSION: 1. Cardiomegaly with pulmonary vascular congestion and interstitial coarsening suggestive of mild pulmonary edema. 2. Mild bibasilar atelectasis. Medications Administered Current Inpatient Medications Acetaminophen (Acetaminophen 325 Mg Tab) 650 mg PO Q4H PRN PRN Reason: Pain or Fever Stop: 05/03/21 03:35 Last Admin: 04/04/21 09:55 Dose: 650 mg Documented by: Hydrocodone Bitart/Acetaminophen (Hydrocodone/Acetamophen 5/325mg Tab) 1 tab PO QID PRN PRN Reason: Pain Stop: 04/17/21 02:39 Amitriptyline HCl (Amitriptyline Hcl 50 Mg Tab) 50 mg PO BID PRISCILA Stop: 05/03/21 08:59 Last Admin: 04/04/21 09:56 Dose: 50 mg Documented by: Dextrose (Dextrose 50% 50 Ml Syringe) 25 - 50 ml IV UD PRN; Protocol PRN Reason: Hypoglycemia Protocol Stop: 05/03/21 03:35 Folic Acid (Folic Acid 1 Mg Tab) 1 mg PO QAM PRISCILA Stop: 05/03/21 08:59 Last Admin: 04/04/21 09:56 Dose: 1 mg Documented by: Furosemide (Furosemide 40 Mg/4 Ml Vial) 40 mg IV ONE ONE Stop: 04/04/21 11:42 Furosemide (Furosemide 80 Mg Tab) 80 mg PO UD PRISCILA Stop: 05/04/21 11:44 Furosemide (Furosemide 40 Mg Tab) 40 mg PO UD PRISCILA Stop: 05/04/21 11:44 Glucagon (Glucagon For Inj 1 Mg Vial) 1 mg SQ UD PRN; Protocol PRN Reason: Hypoglycemia Protocol Stop: 05/03/21 03:35 Glucose (Glucose 10 Tabs/Tube) 4 - 8 tabs PO UD PRN; Protocol PRN Reason: Hypoglycemia Protocol Stop: 05/03/21 03:35 Glucose (Glucose 40% Gel 15 Gm Tube) 15 - 30 gm PO UD PRN; Protocol PRN Reason: Hypoglycemia Protocol Stop: 05/03/21 03:35 Insulin Aspart (Insulin Aspart Per Unit) 0 units SC ACHS PRISCILA Stop: 05/03/21 03:35 Last Admin: 04/04/21 10:09 Dose: Not Given Documented by: Insulin Glargine (Insulin Glargine Solostar 100 Units/Ml 3 Ml Pen) 5 units SC DAILY PRISCILA Stop: 05/03/21 08:59 Last Admin: 04/04/21 10:07 Dose: Not Given Documented by: Levothyroxine Sodium (Levothyroxine Sodium 100 Mcg Tablet) 100 mcg PO DAILYBB [facility] Stop: 05/03/21 06:29 Last Admin: 04/04/21 05:54 Dose: 100 mcg Documented by: Metoclopramide HCl (Metoclopramide Hcl Inj 5 Mg/Ml 2 Ml Vial) 5 mg IV Q6H PRN PRN Reason: nv Stop: 05/03/21 03:35 Metoprolol Tartrate (Metoprolol Tartrate 25 Mg Tab) 12.5 mg PO BID PRISCILA Stop: 05/03/21 08:59 Last Admin: 04/04/21 09:55 Dose: 12.5 mg Documented by: Miscellaneous (Carbohydrates For Hypoglycemia ) 15 - 30 gm PO UD PRN PRN Reason: Hypoglycemia Protocol Stop: 05/03/21 03:35 Pantoprazole Sodium (Pantoprazole 40 Mg Tab) 40 mg PO PM PRISCILA Stop: 05/03/21 20:59 Last Admin: 04/03/21 22:33 Dose: 40 mg Documented by: Ropinirole HCl (Ropinirole Hcl 2 Mg Tablet) 2 mg PO TID PRISCILA Stop: 05/03/21 08:59 Last Admin: 04/04/21 09:55 Dose: 2 mg Documented by: Rosuvastatin Calcium (Rosuvastatin Calcium 20 Mg Tab) 20 mg PO HS PRISCILA Stop: 05/03/21 20:59 Last Admin: 04/03/21 22:32 Dose: 20 mg Documented by: Spironolactone (Spironolactone 12.5 Mg Tab) 12.5 mg PO DAILY [facility] Stop: 05/04/21 11:44 (1) Atrial fibrillation Atrial fibrillation type: unspecified Qualified Code(s): I48.91 - Unspecified atrial fibrillation
--- NOTE | 2021-04-04 11:50 | Electrocardiogram Report ---
Test Reason : Blood Pressure : / mmHG Vent. Rate : 066 BPM Atrial Rate : 068 BPM P-R Int : 000 ms QRS Dur : 108 ms QT Int : 444 ms P-R-T Axes : 000 -44 041 degrees QTc Int : 465 ms Atrial fibrillation Left anterior fascicular block Abnormal ECG When compared with ECG of 02-APR-2021 22:57, No significant change was found Confirmed by Jose Roland ([id number]) on 04/04/2021 11:50:00 AM Referred By: REFERRED SELF Confirmed By:Jose Roland
[2021-04-04] MEDS: SPIRONOLACTONE 12.5 MG TAB PO SCH (13:48)
[2021-04-04 15:27] LABS: Prothrombin Time 52.9 Seconds (9.0-12.0)
[2021-04-04] MEDS: ROSUVASTATIN CALCIUM 20 MG TAB PO SCH (19:51)
[2021-04-04] MEDS: PANTOprazole 40 MG TAB PO SCH (19:53)
[2021-04-05] MEDS: ACETAMINOPHEN 325 MG TAB PO PRN (04:53)
[2021-04-05] MEDS: LEVOTHYROXINE SODIUM 100 MCG TABLET PO SCH (04:53)
[2021-04-05 06:20] LABS: Hematocrit (blood only) 32.3 % (37-47); Mean Corpuscular Hemoglobin 27.1 pg (25-34); Mean Corpuscular Volume 87.5 fL (80-100); Mean Platelet Volume 10.8 fL (7.4-10.4); Platelet Count 136 K/uL (130-400); RDW Standard Deviation 48.2 fL (36.4-46.3); Red Blood Count 3.69 M/uL (4.2-5.4); White Blood Count 5.66 K/uL (4.8-10.8)
[2021-04-05] MEDS: rOPINIRole HCL 2 MG TABLET PO SCH ×3 (06:31→21:39)
[2021-04-05 06:42] LABS: BUN Creatinine Ratio 10.7 (10-20); Calcium 9.6 mg/dl (8.5-10.1); Creatinine Clr Calc Pharmacy 28.8 ml/min; Est GFR (African American) 41.4 ml/min; Est GFR (Non-African American) 35.7 ml/min; Potassium 3.6 mmol/L (3.5-5.1)
[2021-04-05] MEDS: INSULIN ASPART PER UNIT SC SCH ×4 (07:47→21:38)
[2021-04-05] MEDS: METOPROLOL TARTRATE 25 MG TAB PO SCH ×2 (07:47→21:39)
[2021-04-05] MEDS: FUROSEMIDE 80 MG TAB PO SCH (07:48)
[2021-04-05] MEDS: SPIRONOLACTONE 12.5 MG TAB PO SCH (07:48)
[2021-04-05] MEDS: FOLIC ACID 1 MG TAB PO SCH (07:49)
[2021-04-05] MEDS: AMITRIPTYLINE HCL 50 MG TAB PO SCH ×2 (07:49→21:39)
[2021-04-05] MEDS: INSULIN GLARGINE SOLOSTAR 100 UNITS/ML 3 ML PEN SC SCH (07:52)
--- NOTE | 2021-04-05 10:31 | Cardiology Progress Note ---
Date of Service April 05, 2021 Assessment & Plan (1) Recurrent syncope: (2) Hypokalemia: (3) Dehydration: (4) Atrial fibrillation: (5) History of loop recorder: Plan: Patient with recurrent events/falls/possible syncope over the last 6 months. Unwitnessed. Last admission in Dec 2020 with work up unrevealing. Head/neck CTA were normal. Echo revealed stable/normal gradients of mechanical mitral valve, preserved LV function, and underlying moderate TR. She underwent outpatient ZIO without arrhythmias. Due to recurrent events, she underwent LINQ implant last week on 03/31/[address] Vila. No arrhythmias correlating with syncopal spells thus far on LINQ No events during admission over the last several days. She has known chronic afib with controlled rates on low dose metoprolol. EEG was unremarkable. Consider longer ambulatory EEG per neurology. Diuretics were on hold initially and she developed mild pulm congestion. Now improved. continue furosemide 80 mg alternating with 40 mg and spironolactone WOLFGANG hose advised which may aid with orthostatic symptoms. INR has been supratherapeutic. Received VIt K yesterday. Was not repeated this morning, ordered and pending Goal INR given mechanical valve is 3.0-3.5. Resume Coumadin when INR normalizes. will need close f/u with anticoag clinic Continue all other cardiac medications. Patient has significant stressors over mother's illness/hospice, likely contributing to her current issues. IF INR improved, likely discharge in the next 24 hours. Case discussed with Dr. Sutton. Admission and Anticipated Discharge Date Admission Date: April 04, 2021 Supervising Physician Co-Signing Physician Notes Patient seen and examined, I personally performed a history and physical exam on the patient. Agree with Cristal Vu PA-C's findings as noted above. INR 2.6. Given mechanical mitral valve, goal INR is 33 0.5. Agree with heparin bridge. Resume Coumadin. Subjective Patient resting in bed comfortably. No recurrent "spells" or falls. no dizziness or lightheadedness. Pulm congestion improved with resuming oral furosemide. No SOB. No cough. No chest pain. INR was not repeated today. Mother is now on hospice. This is a great deal of stress to her, possibly contributing to her issues. No arrhythmias on monitor. Review of Systems Review of Systems: All systems reviewed & are unremarkable except as noted in HPI & below Physical Exam Constitutional: WD/WN, vitals as above Eyes: PERRL, conjunctivae normal, anicteric sclerae Neck: trachea midline, no thyromegaly Respiratory: normal respiratory effort, lungs clear to auscultation normal respiratory effort Auscultation: lungs clear to auscultation bilaterally Cardiovascular: Rate/Rhythm: + irregularly irregular Heart Sounds: + murmur (II/ systolic murmur ) Vessels: no JVD and no carotid bruit Extremities: + edema (trace b/l edema with chronic varicosities) Gastrointestinal (Abdomen): normal bowel sounds, soft, nontender, no hepatosplenomegaly Neurologic: PERRL, EOMI, accommodation nl, no face palsy, no dysarthria Psychiatric: Orientation: alert and oriented x 3 Affect: + anxious affect Results & Data ([facility]) Vital Signs (Past 12 Hours) Vital Signs Temp Pulse Pulse Resp BP Pulse Ox 04/05/21 08:00 36.6 C 87 16 125/77 98 04/05/21 04:00 36.7 C 85 20 122/86 97 04/04/21 23:00 36.5 C 65 86 18 97/48 L 96 Laboratory Results 04/05/21 04/05/21 04/04/21 Range/Units 05:59 05:59 20:41 WBC 5.66 (4.8-10.8) K/uL RBC 3.69 L (4.2-5.4) M/uL Hgb 10.0 L (12.0-16.0) g/dL Hct 32.3 L (37-47) % MCV 87.5 (80-100) fL MCH 27.1 (25-34) pg MCHC 31.0 L (32-36) g/dL RDW Std Deviation 48.2 H (36.4-46.3) fL RDW Coeff of Courtney 15.0 H (11.5-14.5) % Plt Count 136 (130-400) K/uL MPV 10.8 H (7.4-10.4) fL PT (9.0-12.0) Seconds INR (0.9-1.1) Sodium 132 L (136-145) mmol/L Potassium 3.6 (3.5-5.1) mmol/L Chloride 100 (98-107) mmol/L Carbon Dioxide 26 (21-32) mmol/L Anion Gap 6 (3-11) BUN 16 (6-23) mg/dl Creatinine 1.50 H (0.6-1.2) mg/dl Est Cr Clr Drug Dosing 28.8 ml/min Est GFR ( Amer) 41.4 ml/min Est GFR (Non-Af Amer) 35.7 ml/min BUN/Creatinine Ratio 10.7 (10-20) Glucose 201 H (70-99(Fasting)) mg/dl POC Glucose 236 H (70-99) mg/dl Calcium 9.6 (8.5-10.1) mg/dl 04/04/21 04/04/21 04/04/21 Range/Units 17:27 14:57 12:20 WBC (4.8-10.8) K/uL RBC (4.2-5.4) M/uL Hgb (12.0-16.0) g/dL Hct (37-47) % MCV (80-100) fL MCH (25-34) pg MCHC (32-36) g/dL RDW Std Deviation (36.4-46.3) fL RDW Coeff of Courtney (11.5-14.5) % Plt Count (130-400) K/uL MPV (7.4-10.4) fL PT 52.9 H (9.0-12.0) Seconds INR 6.0 H* (0.9-1.1) Sodium (136-145) mmol/L Potassium (3.5-5.1) mmol/L Chloride (98-107) mmol/L Carbon Dioxide (21-32) mmol/L Anion Gap (3-11) BUN (6-23) mg/dl Creatinine (0.6-1.2) mg/dl Est Cr Clr Drug Dosing ml/min Est GFR ( Amer) ml/min Est GFR (Non-Af Amer) ml/min BUN/Creatinine Ratio (10-20) Glucose (70-99(Fasting)) mg/dl POC Glucose 85 110 H (70-99) mg/dl Calcium (8.5-10.1) mg/dl Diagnostic Findings Telemetry reviewed - Atrial fib with occ PVC. HR's 70-80's. No bradycardia or pauses Medications Administered Current Inpatient Medications Acetaminophen (Acetaminophen 325 Mg Tab) 650 mg PO Q4H PRN PRN Reason: Pain or Fever Stop: 05/03/21 03:35 Last Admin: 04/05/21 04:53 Dose: 650 mg Documented by: Hydrocodone Bitart/Acetaminophen (Hydrocodone/Acetamophen 5/325mg Tab) 1 tab PO QID PRN PRN Reason: Pain Stop: 04/17/21 02:39 Amitriptyline HCl (Amitriptyline Hcl 50 Mg Tab) 50 mg PO BID [facility] Stop: 05/03/21 08:59 Last Admin: 04/05/21 07:49 Dose: 50 mg Documented by: Dextrose (Dextrose 50% 50 Ml Syringe) 25 - 50 ml IV UD PRN; Protocol PRN Reason: Hypoglycemia Protocol Stop: 05/03/21 03:35 Folic Acid (Folic Acid 1 Mg Tab) 1 mg PO QAM [facility] Stop: 05/03/21 08:59 Last Admin: 04/05/21 07:49 Dose: 1 mg Documented by: Furosemide (Furosemide 80 Mg Tab) 80 mg PO [email or web address] [facility] Stop: 05/05/21 08:59 Last Admin: 04/05/21 07:48 Dose: 80 mg Documented by: Furosemide (Furosemide 40 Mg Tab) 40 mg PO [email or web address] [facility] Stop: 05/06/21 08:59 Glucagon (Glucagon For Inj 1 Mg Vial) 1 mg SQ UD PRN; Protocol PRN Reason: Hypoglycemia Protocol Stop: 05/03/21 03:35 Glucose (Glucose 10 Tabs/Tube) 4 - 8 tabs PO UD PRN; Protocol PRN Reason: Hypoglycemia Protocol Stop: 05/03/21 03:35 Glucose (Glucose 40% Gel 15 Gm Tube) 15 - 30 gm PO UD PRN; Protocol PRN Reason: Hypoglycemia Protocol Stop: 05/03/21 03:35 Insulin Aspart (Insulin Aspart Per Unit) 0 units SC ACHS [facility] Stop: 05/03/21 03:35 Last Admin: 04/05/21 07:47 Dose: 7 units Documented by: Insulin Glargine (Insulin Glargine Solostar 100 Units/Ml 3 Ml Pen) 5 units SC DAILY [facility] Stop: 05/03/21 08:59 Last Admin: 04/05/21 07:52 Dose: Not Given Documented by: Levothyroxine Sodium (Levothyroxine Sodium 100 Mcg Tablet) 100 mcg PO DAILYBB PRISCILA Stop: 05/03/21 06:29 Last Admin: 04/05/21 04:53 Dose: 100 mcg Documented by: Metoclopramide HCl (Metoclopramide Hcl Inj 5 Mg/Ml 2 Ml Vial) 5 mg IV Q6H PRN PRN Reason: nv Stop: 05/03/21 03:35 Metoprolol Tartrate (Metoprolol Tartrate 25 Mg Tab) 12.5 mg PO BID PRISCIL[facility] Stop: 05/03/21 08:59 Last Admin: 04/05/21 07:47 Dose: 12.5 mg Documented by: Miscellaneous (Carbohydrates For Hypoglycemia ) 15 - 30 gm PO UD PRN PRN Reason: Hypoglycemia Protocol Stop: 05/03/21 03:35 Pantoprazole Sodium (Pantoprazole 40 Mg Tab) 40 mg PO PM PRISCILA Stop: 05/03/21 20:59 Last Admin: 04/04/21 19:53 Dose: 40 mg Documented by: Ropinirole HCl (Ropinirole Hcl 2 Mg Tablet) 2 mg PO TID PRISCILA Stop: 05/03/21 08:59 Last Admin: 04/05/21 06:31 Dose: 2 mg Documented by: Rosuvastatin Calcium (Rosuvastatin Calcium 20 Mg Tab) 20 mg PO HS PRISCILA Stop: 05/03/21 20:59 Last Admin: 04/04/21 19:51 Dose: 20 mg Documented by: Spironolactone (Spironolactone 12.5 Mg Tab) 12.5 mg PO DAILY PRISCIL[facility] Stop: 05/04/21 11:59 Last Admin: 04/05/21 07:48 Dose: 12.5 mg Documented by: (1) Atrial fibrillation Atrial fibrillation type: unspecified Qualified Code(s): I48.91 - Unspecified atrial fibrillation
[2021-04-05 11:08] LABS: INR 2.7 (0.9-1.1); Prothrombin Time 25.1 Seconds (9.0-12.0)
--- NOTE | 2021-04-05 11:24 | Hospitalist Progress Note ---
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 She underwent outpatient ZIO without arrhythmias. Due to recurrent events, she underwent LINQ implant last week on 03/31/[address] Vila. Linq monitor unrevealing Metoprolol decreased from 50 to 25mg po daily Orthostasis orthostatic VS pending Seizures, history embolic CVA EEG negative 72 hour ambulatory EEG monitoring recommended by Neurologist Dr. German outpatient follow up with Neurologist Mild Pulmonary Congestion usual Lasix, Aldactone ordered hx mechanical MVR on Coumadin, INR supratherapeutic INR 2.7 start Heparin drip + resume Coumadin 5mg daily INR daily Hypertension stable Hyperlipidemia on statin Rx DM2 diet-controlled, well-controlled as of recent hemoglobin A1c of 24 January 2021 CKD, creatinine at baseline Hypothyroidism, euthyroid chronic anemia, hemoglobin at baseline Hypokalemia secondary to home diuretic Rx Disposition anticipate d/c home when medically stable Admission and Anticipated Discharge Date Admission Date: April 04, 2021 Subjective ff up for recurrent syncope, etc seen resting in bed, comfortable in good spirits, smiling states she feels improved compared to admission no dizziness, palpitations, presyncope/syncope no chest pain, dyspnea no bleeding no other symptoms Review of Systems Review of Systems: all noted and negative except for above Physical Exam Physical Exam: General- oriented x 2, not in distress, speaks in sentences with no effort or accessory muscle use Eyes- anicteric Neck- no JVD Lungs- (+) mild crackles at the bases no wheezing Heart- normal rate, regular rhythm; no murmurs Abdomen- normal bowel sounds, nondistended, soft, nontender Extremities- grade 1 BL lower extremity edema Neuro- alert, oriented x 3; no gross focal neurologic deficits Skin- warm & dry Results & Data Results & Data ([facility]) Vital Signs (Past 12 Hours) Vital Signs Temp Pulse Resp BP Pulse Ox 04/05/21 10:58 36.6 C 79 16 127/66 98 04/05/21 08:00 36.6 C 87 16 125/77 98 04/05/21 04:00 36.7 C 85 20 122/86 97 all noted and reviewed including below
[2021-04-05] MEDS: Heparin IV Adult Wt-Based Standard *NO* Bolus Protocol IV SCH ×2 (12:55→12:56)
[2021-04-05] MEDS: HEPARIN SODIUM/DEXTROSE 25,000 UNITS/500 ML BAG IV SCH (13:29)
[2021-04-05 14:57] LABS: Partial Thromboplastin Time 51.5 Seconds (21.0-31.0)
[2021-04-05] MEDS ORDERED: WARFARIN SOD 5 MG TAB PO SCH (16:00)
[2021-04-05 20:02] LABS: Partial Thromboplastin Ratio 5.2
[2021-04-05 20:09] LABS: Partial Thromboplastin Time 136.4 Seconds (21.0-31.0)
[2021-04-05] MEDS: PANTOprazole 40 MG TAB PO SCH (21:39)
[2021-04-05] MEDS: ROSUVASTATIN CALCIUM 20 MG TAB PO SCH (21:39)
[2021-04-06] MEDS: HEPARIN SODIUM/DEXTROSE 25,000 UNITS/500 ML BAG IV SCH (04:34)
[2021-04-06] MEDS: LEVOTHYROXINE SODIUM 100 MCG TABLET PO SCH (05:57)
[2021-04-06 06:22] LABS: Partial Thromboplastin Ratio 5.1
[2021-04-06 06:32] LABS: Partial Thromboplastin Time 135.1 Seconds (21.0-31.0)
[2021-04-06] MEDS: FUROSEMIDE 40 MG TAB PO SCH (08:13)
[2021-04-06] MEDS: FOLIC ACID 1 MG TAB PO SCH (08:13)
[2021-04-06] MEDS: rOPINIRole HCL 2 MG TABLET PO SCH ×3 (08:13→21:40)
[2021-04-06] MEDS: AMITRIPTYLINE HCL 50 MG TAB PO SCH ×2 (08:13→21:40)
[2021-04-06] MEDS: SPIRONOLACTONE 12.5 MG TAB PO SCH (08:13)
[2021-04-06] MEDS: INSULIN ASPART PER UNIT SC SCH ×4 (08:44→21:41)
[2021-04-06 09:39] LABS: Prothrombin Time 19.3 Seconds (9.0-12.0)
[2021-04-06] MEDS: METOPROLOL TARTRATE 25 MG TAB PO SCH ×2 (09:39→21:40)
[2021-04-06] MEDS: INSULIN GLARGINE SOLOSTAR 100 UNITS/ML 3 ML PEN SC SCH (09:39)
[2021-04-06 09:42] LABS: Basophils # (auto) 0.02 K/uL (0-0.2); Basophils % (auto) 0.3 %; Eosinophils # (auto) 0.34 K/uL (0-0.5); Eosinophils % (auto) 5.9 %; Hematocrit (blood only) 34.1 % (37-47); Hemoglobin 10.5 g/dL (12.0-16.0); Immature Granulocytes # (auto) 0.01 K/uL (0.00-0.02); Immature Granulocytes % (auto) 0.2 %; Lymphocytes # (auto) 1.16 K/uL (1.2-3.4); Lymphocytes % (auto) 20.2 %; Mean Corpuscular Hemoglobin 27.3 pg (25-34); Mean Corpuscular Hgb Conc 30.8 g/dL (32-36); Mean Corpuscular Volume 88.6 fL (80-100); Mean Platelet Volume 11.6 fL (7.4-10.4); Monocytes # (auto) 0.43 K/uL (0.11-0.59); Monocytes % (auto) 7.5 %; Neutrophils # (auto) 3.78 K/uL (1.4-6.5); Neutrophils % (auto) 65.9 %; Platelet Count 151 K/uL (130-400); RDW Coefficient of Variation 15.1 % (11.5-14.5); RDW Standard Deviation 49.1 fL (36.4-46.3); Red Blood Count 3.85 M/uL (4.2-5.4); White Blood Count 5.74 K/uL (4.8-10.8)
[2021-04-06 09:58] LABS: BUN Creatinine Ratio 9.5 (10-20); Calcium 9.6 mg/dl (8.5-10.1); Creatinine Clr Calc Pharmacy 29.2 ml/min; Est GFR (Non-African American) 36.3 ml/min; Potassium 3.4 mmol/L (3.5-5.1)
--- NOTE | 2021-04-06 10:50 | Cardiology Progress Note ---
Date of Service April 06, 2021 Assessment & Plan (1) Recurrent syncope: (2) Hypokalemia: (3) Dehydration: (4) Atrial fibrillation: (5) History of loop recorder: Plan: Patient with recurrent events/falls/possible syncope over the last 6 months. Unwitnessed. Last admission in Dec 2020 with work up unrevealing. Head/neck CTA were normal. Echo revealed stable/normal gradients of mechanical mitral valve, preserved LV function, and underlying moderate TR. She underwent outpatient ZIO without arrhythmias. Due to recurrent events, she underwent LINQ implant last week on 03/31/[address] Vila. No arrhythmias correlating with syncopal spells thus far on LINQ No events during admission over the last several days. No arrhythmias on telemetry. BP has been controlled. She has known chronic afib with controlled rates on low dose metoprolol. EEG was unremarkable. Consider longer ambulatory EEG per neurology. Diuretics were on hold initially and she developed mild pulm congestion. Now improved. continue furosemide 80 mg alternating with 40 mg and spironolactone (home dose) WOLFGANG barraza advised which may aid with orthostatic symptoms. INR has been supratherapeutic, now improved. INR was low yesterday and IV heparin initiated. INR 2.7 this morning. Goal 3-3.5. continue coumadin. will need close f/u with anticoag clinic given labile INR. recommend PT today as patient is concerned with returning home and having recurrent spells of "falls/syncope". Continue all other cardiac medications. Patient has significant stressors over mother's illness/hospice, likely contributing to her current issues. Anticipate discharge in the next 24 hours Case discussed with Dr. Sutton. Admission and Anticipated Discharge Date Admission Date: April 04, 2021 Supervising Physician Co-Signing Physician Notes Case discussed with Nancy Conway PA-C. Agree with findings as documented. Coumadin titrated for goal INR 3-3.5 given history of mechanical mitral valve. Continue heparin bridge. Subjective Patient resting in bed comfortably. No recurrent dizziness or lightheadedness. No recurrent falls. However patient is concerned that she has been fairly immobile during admission and is concerned when she is up walking at home that she will have recurrent spells. Agreeable to PT today. She otherwise denies acute cardiac complaints. Review of Systems Review of Systems: All systems reviewed & are unremarkable except as noted in HPI & below Physical Exam Constitutional: WD/WN, vitals as above Eyes: PERRL, conjunctivae normal, anicteric sclerae Neck: trachea midline, no thyromegaly Respiratory: normal respiratory effort, lungs clear to auscultation normal respiratory effort Auscultation: lungs clear to auscultation bilaterally Cardiovascular: Rate/Rhythm: + irregularly irregular Heart Sounds: + murmur (II/ systolic murmur ) Vessels: no JVD and no carotid bruit Extremities: + edema (trace b/l edema with chronic varicosities) Gastrointestinal (Abdomen): normal bowel sounds, soft, nontender, no hepa tosplenomegaly Neurologic: PERRL, EOMI, accommodation nl, no face palsy, no dysarthria Psychiatric: Orientation: alert and oriented x 3 Affect: + anxious affect Results & Data ([facility]) Vital Signs (Past 12 Hours) Vital Signs Temp Pulse Pulse Resp BP BP Pulse Ox 04/06/21 10:43 36.8 C 69 20 111/63 97 04/06/21 08:57 36.6 C 99 04/06/21 04:43 36.5 C 72 18 95 04/05/21 23:30 36.6 C 74 20 122/66 97 04/05/21 23:07 90 Laboratory Results 04/06/21 04/06/21 04/06/21 Range/Units 07:15 05:24 05:24 WBC (4.8-10.8) K/uL RBC (4.2-5.4) M/uL Hgb (12.0-16.0) g/dL Hct (37-47) % MCV (80-100) fL MCH (25-34) pg MCHC (32-36) g/dL RDW Std Deviation (36.4-46.3) fL RDW Coeff of Courtney (11.5-14.5) % Plt Count (130-400) K/uL MPV (7.4-10.4) fL Immature Gran % (Auto) % Neut % (Auto) % Lymph % (Auto) % Gaines % (Auto) % Eos % (Auto) % Baso % (Auto) % Neut # (Auto) (1.4-6.5) K/uL Lymph # (Auto) (1.2-3.4) K/uL Gaines # (Auto) (0.11-0.59) K/uL Eos # (Auto) (0-0.5) K/uL Baso # (Auto) (0-0.2) K/uL Immature Gran # (Auto) (0.00-0.02) K/uL PT 19.3 H (9.0-12.0) Seconds INR 2.0 H (0.9-1.1) APTT (21.0-31.0) Seconds PTT Ratio Sodium 136 (136-145) mmol/L Potassium 3.4 L (3.5-5.1) mmol/L Chloride 101 (98-107) mmol/L Carbon Dioxide 28 (21-32) mmol/L Anion Gap 7 (3-11) BUN 14 (6-23) mg/dl Creatinine 1.48 H (0.6-1.2) mg/dl Est Cr Clr Drug Dosing 29.2 ml/min Est GFR ( Amer) 42.0 ml/min Est GFR (Non-Af Amer) 36.3 ml/min BUN/Creatinine Ratio 9.5 L (10-20) Glucose 114 H (70-99(Fasting)) mg/dl POC Glucose 136 H (70-99) mg/dl Calcium 9.6 (8.5-10.1) mg/dl 04/06/21 04/06/21 04/05/21 Range/Units 05:24 05:24 20:46 WBC 5.74 (4.8-10.8) K/uL RBC 3.85 L (4.2-5.4) M/uL Hgb 10.5 L (12.0-16.0) g/dL Hct 34.1 L (37-47) % MCV 88.6 (80-100) fL MCH 27.3 (25-34) pg MCHC 30.8 L (32-36) g/dL RDW Std Deviation 49.1 H (36.4-46.3) fL RDW Coeff of Courtney 15.1 H (11.5-14.5) % Plt Count 151 (130-400) K/uL MPV 11.6 H (7.4-10.4) fL Immature Gran % (Auto) 0.2 % Neut % (Auto) 65.9 % Lymph % (Auto) 20.2 % Gaines % (Auto) 7.5 % Eos % (Auto) 5.9 % Baso % (Auto) 0.3 % Neut # (Auto) 3.78 (1.4-6.5) K/uL Lymph # (Auto) 1.16 L (1.2-3.4) K/uL Gaines # (Auto) 0.43 (0.11-0.59) K/uL Eos # (Auto) 0.34 (0-0.5) K/uL Baso # (Auto) 0.02 (0-0.2) K/uL Immature Gran # (Auto) 0.01 (0.00-0.02) K/uL PT (9.0-12.0) Seconds INR (0.9-1.1) APTT 135.1 H* (21.0-31.0) Seconds PTT Ratio 5.1 Sodium (136-145) mmol/L Potassium (3.5-5.1) mmol/L Chloride (98-107) mmol/L Carbon Dioxide (21-32) mmol/L Anion Gap (3-11) BUN (6-23) mg/dl Creatinine (0.6-1.2) mg/dl Est Cr Clr Drug Dosing ml/min Est GFR ( Amer) ml/min Est GFR (Non-Af Amer) ml/min BUN/Creatinine Ratio (10-20) Glucose (70-99(Fasting)) mg/dl POC Glucose 189 H (70-99) mg/dl Calcium (8.5-10.1) mg/dl 04/05/21 04/05/21 04/05/21 Range/Units 19:29 16:16 11:21 WBC (4.8-10.8) K/uL RBC (4.2-5.4) M/uL Hgb (12.0-16.0) g/dL Hct (37-47) % MCV (80-100) fL MCH (25-34) pg MCHC (32-36) g/dL RDW Std Deviation (36.4-46.3) fL RDW Coeff of Courtney (11.5-14.5) % Plt Count (130-400) K/uL MPV (7.4-10.4) fL Immature Gran % (Auto) % Neut % (Auto) % Lymph % (Auto) % Gaines % (Auto) % Eos % (Auto) % Baso % (Auto) % Neut # (Auto) (1.4-6.5) K/uL Lymph # (Auto) (1.2-3.4) K/uL Gaines # (Auto) (0.11-0.59) K/uL Eos # (Auto) (0-0.5) K/uL Baso # (Auto) (0-0.2) K/uL Immature Gran # (Auto) (0.00-0.02) K/uL PT (9.0-12.0) Seconds INR (0.9-1.1) APTT 136.4 H* (21.0-31.0) Seconds PTT Ratio 5.2 Sodium (136-145) mmol/L Potassium (3.5-5.1) mmol/L Chloride (98-107) mmol/L Carbon Dioxide (21-32) mmol/L Anion Gap (3-11) BUN (6-23) mg/dl Creatinine (0.6-1.2) mg/dl Est Cr Clr Drug Dosing ml/min Est GFR ( Amer) ml/min Est GFR (Non-Af Amer) ml/min BUN/Creatinine Ratio (10-20) Glucose (70-99(Fasting)) mg/dl POC Glucose 102 H 87 (70-99) mg/dl Calcium (8.5-10.1) mg/dl 04/05/21 04/05/21 Range/Units 10:50 10:50 WBC (4.8-10.8) K/uL RBC (4.2-5.4) M/uL Hgb (12.0-16.0) g/dL Hct (37-47) % MCV (80-100) fL MCH (25-34) pg MCHC (32-36) g/dL RDW Std Deviation (36.4-46.3) fL RDW Coeff of Courtney (11.5-14.5) % Plt Count (130-400) K/uL MPV (7.4-10.4) fL Immature Gran % (Auto) % Neut % (Auto) % Lymph % (Auto) % Gaines % (Auto) % Eos % (Auto) % Baso % (Auto) % Neut # (Auto) (1.4-6.5) K/uL Lymph # (Auto) (1.2-3.4) K/uL Gaines # (Auto) (0.11-0.59) K/uL Eos # (Auto) (0-0.5) K/uL Baso # (Auto) (0-0.2) K/uL Immature Gran # (Auto) (0.00-0.02) K/uL PT 25.1 H (9.0-12.0) Seconds INR 2.7 H (0.9-1.1) APTT 51.5 H* (21.0-31.0) Seconds PTT Ratio 2.0 Sodium (136-145) mmol/L Potassium (3.5-5.1) mmol/L Chloride (98-107) mmol/L Carbon Dioxide (21-32) mmol/L Anion Gap (3-11) BUN (6-23) mg/dl Creatinine (0.6-1.2) mg/dl Est Cr Clr Drug Dosing ml/min Est GFR ( Amer) ml/min Est GFR (Non-Af Amer) ml/min BUN/Creatinine Ratio (10-20) Glucose (70-99(Fasting)) mg/dl POC Glucose (70-99) mg/dl Calcium (8.5-10.1) mg/dl Diagnostic Findings Telemetry reviewed demonstrating - Persistent atrial fibrillation with controlled ventricular rates ranging in the 70-80 bmp range Medications Administered 04/06/21 04/06/21 04/06/21 Range/Units 07:15 05:24 05:24 WBC (4.8-10.8) K/uL RBC (4.2-5.4) M/uL Hgb (12.0-16.0) g/dL Hct (37-47) % MCV (80-100) fL MCH (25-34) pg MCHC (32-36) g/dL RDW Std Deviation (36.4-46.3) fL RDW Coeff of Courtney (11.5-14.5) % Plt Count (130-400) K/uL MPV (7.4-10.4) fL Immature Gran % (Auto) % Neut % (Auto) % Lymph % (Auto) % Gaines % (Auto) % Eos % (Auto) % Baso % (Auto) % Neut # (Auto) (1.4-6.5) K/uL Lymph # (Auto) (1.2-3.4) K/uL Gaines # (Auto) (0.11-0.59) K/uL Eos # (Auto) (0-0.5) K/uL Baso # (Auto) (0-0.2) K/uL Immature Gran # (Auto) (0.00-0.02) K/uL PT 19.3 H (9.0-12.0) Seconds INR 2.0 H (0.9-1.1) APTT (21.0-31.0) Seconds PTT Ratio Sodium 136 (136-145) mmol/L Potassium 3.4 L (3.5-5.1) mmol/L Chloride 101 (98-107) mmol/L Carbon Dioxide 28 (21-32) mmol/L Anion Gap 7 (3-11) BUN 14 (6-23) mg/dl Creatinine 1.48 H (0.6-1.2) mg/dl Est Cr Clr Drug Dosing 29.2 ml/min Est GFR ( Amer) 42.0 ml/min Est GFR (Non-Af Amer) 36.3 ml/min BUN/Creatinine Ratio 9.5 L (10-20) Glucose 114 H (70-99(Fasting)) mg/dl POC Glucose 136 H (70-99) mg/dl Calcium 9.6 (8.5-10.1) mg/dl 04/06/21 04/06/21 04/05/21 Range/Units 05:24 05:24 20:46 WBC 5.74 (4.8-10.8) K/uL RBC 3.85 L (4.2-5.4) M/uL Hgb 10.5 L (12.0-16.0) g/dL Hct 34.1 L (37-47) % MCV 88.6 (80-100) fL MCH 27.3 (25-34) pg MCHC 30.8 L (32-36) g/dL RDW Std Deviation 49.1 H (36.4-46.3) fL RDW Coeff of Courtney 15.1 H (11.5-14.5) % Plt Count 151 (130-400) K/uL MPV 11.6 H (7.4-10.4) fL Immature Gran % (Auto) 0.2 % Neut % (Auto) 65.9 % Lymph % (Auto) 20.2 % Gaines % (Auto) 7.5 % Eos % (Auto) 5.9 % Baso % (Auto) 0.3 % Neut # (Auto) 3.78 (1.4-6.5) K/uL Lymph # (Auto) 1.16 L (1.2-3.4) K/uL Gaines # (Auto) 0.43 (0.11-0.59) K/uL Eos # (Auto) 0.34 (0-0.5) K/uL Baso # (Auto) 0.02 (0-0.2) K/uL Immature Gran # (Auto) 0.01 (0.00-0.02) K/uL PT (9.0-12.0) Seconds INR (0.9-1.1) APTT 135.1 H* (21.0-31.0) Seconds PTT Ratio 5.1 Sodium (136-145) mmol/L Potassium (3.5-5.1) mmol/L Chloride (98-107) mmol/L Carbon Dioxide (21-32) mmol/L Anion Gap (3-11) BUN (6-23) mg/dl Creatinine (0.6-1.2) mg/dl Est Cr Clr Drug Dosing ml/min Est GFR ( Amer) ml/min Est GFR (Non-Af Amer) ml/min BUN/Creatinine Ratio (10-20) Glucose (70-99(Fasting)) mg/dl POC Glucose 189 H (70-99) mg/dl Calcium (8.5-10.1) mg/dl 04/05/21 04/05/21 04/05/21 Range/Units 19:29 16:16 11:21 WBC (4.8-10.8) K/uL RBC (4.2-5.4) M/uL Hgb (12.0-16.0) g/dL Hct (37-47) % MCV (80-100) fL MCH (25-34) pg MCHC (32-36) g/dL RDW Std Deviation (36.4-46.3) fL RDW Coeff of Courtney (11.5-14.5) % Plt Count (130-400) K/uL MPV (7.4-10.4) fL Immature Gran % (Auto) % Neut % (Auto) % Lymph % (Auto) % Gaines % (Auto) % Eos % (Auto) % Baso % (Auto) % Neut # (Auto) (1.4-6.5) K/uL Lymph # (Auto) (1.2-3.4) K/uL Gaines # (Auto) (0.11-0.59) K/uL Eos # (Auto) (0-0.5) K/uL Baso # (Auto) (0-0.2) K/uL Immature Gran # (Auto) (0.00-0.02) K/uL PT (9.0-12.0) Seconds INR (0.9-1.1) APTT 136.4 H* (21.0-31.0) Seconds PTT Ratio 5.2 Sodium (136-145) mmol/L Potassium (3.5-5.1) mmol/L Chloride (98-107) mmol/L Carbon Dioxide (21-32) mmol/L Anion Gap (3-11) BUN (6-23) mg/dl Creatinine (0.6-1.2) mg/dl Est Cr Clr Drug Dosing ml/min Est GFR ( Amer) ml/min Est GFR (Non-Af Amer) ml/min BUN/Creatinine Ratio (10-20) Glucose (70-99(Fasting)) mg/dl POC Glucose 102 H 87 (70-99) mg/dl Calcium (8.5-10.1) mg/dl 04/05/21 04/05/21 Range/Units 10:50 10:50 WBC (4.8-10.8) K/uL RBC (4.2-5.4) M/uL Hgb (12.0-16.0) g/dL Hct (37-47) % MCV (80-100) fL MCH (25-34) pg MCHC (32-36) g/dL RDW Std Deviation (36.4-46.3) fL RDW Coeff of Courtney (11.5-14.5) % Plt Count (130-400) K/uL MPV (7.4-10.4) fL Immature Gran % (Auto) % Neut % (Auto) % Lymph % (Auto) % Gaines % (Auto) % Eos % (Auto) % Baso % (Auto) % Neut # (Auto) (1.4-6.5) K/uL Lymph # (Auto) (1.2-3.4) K/uL Gaines # (Auto) (0.11-0.59) K/uL Eos # (Auto) (0-0.5) K/uL Baso # (Auto) (0-0.2) K/uL Immature Gran # (Auto) (0.00-0.02) K/uL PT 25.1 H (9.0-12.0) Seconds INR 2.7 H (0.9-1.1) APTT 51.5 H* (21.0-31.0) Seconds PTT Ratio 2.0 Sodium (136-145) mmol/L Potassium (3.5-5.1) mmol/L Chloride (98-107) mmol/L Carbon Dioxide (21-32) mmol/L Anion Gap (3-11) BUN (6-23) mg/dl Creatinine (0.6-1.2) mg/dl Est Cr Clr Drug Dosing ml/min Est GFR ( Amer) ml/min Est GFR (Non-Af Amer) ml/min BUN/Creatinine Ratio (10-20) Glucose (70-99(Fasting)) mg/dl POC Glucose (70-99) mg/dl Calcium (8.5-10.1) mg/dl (1) Atrial fibrillation Atrial fibrillation type: unspecified Qualified Code(s): I48.91 - Unspecified atrial fibrillation
[2021-04-06] MEDS ORDERED: POTASSIUM CHLORIDE CRTAB 20 MEQ TABCR PO STA (13:53)
[2021-04-06] MEDS: WARFARIN SOD 10 MG TAB PO SCH (15:43)
[2021-04-06 15:51] LABS: Partial Thromboplastin Ratio 2.6
--- NOTE | 2021-04-06 17:45 | Hospitalist Progress Note ---
Date of Service April 06, 2021 Assessment & Plan (1) Recurrent syncope: Plan: Recurrent Syncope: possible symptomatic bradycardia, hx SSS per Infusion Nurse: Echo revealed stable/normal gradients of mechanical mitral valve, preserved LV function, and underlying moderate TR. She underwent outpatient ZIO without arrhythmias. Due to recurrent events, she underwent LINQ implant last week on 03/31/[address] Vila. Linq monitor unrevealing Metoprolol decreased from 50 to 25mg po daily Orthostasis orthostatic VS: negative Seizures, history embolic CVA EEG negative 72 hour ambulatory EEG monitoring recommended by Neurologist Dr. German will consult Neurologist Mild Pulmonary Congestion usual Lasix, Aldactone ordered hx mechanical MVR on Coumadin, INR supratherapeutic INR 2.0 Heparin drip + Coumadin 10mg today INR daily Hypertension stable Hyperlipidemia on statin Rx DM2 diet-controlled, well-controlled as of recent hemoglobin A1c of 24 January 2021 CKD, creatinine at baseline Hypothyroidism, euthyroid chronic anemia, hemoglobin at baseline Hypokalemia secondary to home diuretic Rx Disposition anticipate d/c home when medically stable PT/OT eval ordered Admission and Anticipated Discharge Date Admission Date: April 04, 2021 Subjective ff up for recurrent syncope, etc seen resting in bed, comfortable states she feels ok today had some dizziness when getting up earlier, improving no presyncope/syncope no chest pain, dyspnea, palpitations, dizziness no bleeding no other symptoms Review of Systems Review of Systems: all noted and negative except for above Physical Exam Physical Exam: General- oriented x 3, not in distress, speaks in sentences with no effort or accessory muscle use Eyes- anicteric Neck- no JVD Lungs- clear BS BL Heart- normal rate, regular rhythm; no murmurs Abdomen- normal bowel sounds, nondistended, soft, nontender Extremities- mild lower extremity edema, no calf tenderness Neuro- alert, oriented x 3; no gross focal neurologic deficits Skin- warm & dry Results & Data Results & Data ([facility]) Vital Signs (Past 12 Hours) Vital Signs Temp Pulse Resp BP Pulse Ox 04/06/21 16:54 36.7 C 83 18 116/56 L 95 04/06/21 10:43 36.8 C 69 20 111/63 97 04/06/21 08:57 36.6 C 99 all noted and reviewed including below
[2021-04-06] MEDS: PANTOprazole 40 MG TAB PO SCH (21:40)
[2021-04-06] MEDS: ROSUVASTATIN CALCIUM 20 MG TAB PO SCH (21:40)
[2021-04-06] MEDS: ACETAMINOPHEN 325 MG TAB PO PRN (22:30)
[2021-04-06 23:24] LABS: Partial Thromboplastin Ratio 2.3
[2021-04-06 23:34] LABS: Partial Thromboplastin Time 61.3 Seconds (21.0-31.0)
[2021-04-07] MEDS: LEVOTHYROXINE SODIUM 100 MCG TABLET PO SCH (05:14)
[2021-04-07 07:45] LABS: Basophils # (auto) 0.01 K/uL (0-0.2); Basophils % (auto) 0.2 %; Eosinophils # (auto) 0.37 K/uL (0-0.5); Eosinophils % (auto) 7.9 %; Hematocrit (blood only) 34.1 % (37-47); Hemoglobin 10.6 g/dL (12.0-16.0); Immature Granulocytes # (auto) 0.01 K/uL (0.00-0.02); Immature Granulocytes % (auto) 0.2 %; Lymphocytes # (auto) 1.22 K/uL (1.2-3.4); Lymphocytes % (auto) 26.2 %; Mean Corpuscular Hemoglobin 27.5 pg (25-34); Mean Corpuscular Hgb Conc 31.1 g/dL (32-36); Mean Corpuscular Volume 88.3 fL (80-100); Mean Platelet Volume 10.9 fL (7.4-10.4); Monocytes % (auto) 8.6 %; Neutrophils # (auto) 2.65 K/uL (1.4-6.5); Neutrophils % (auto) 56.9 %; Platelet Count 141 K/uL (130-400); RDW Coefficient of Variation 15.2 % (11.5-14.5); RDW Standard Deviation 49.2 fL (36.4-46.3); Red Blood Count 3.86 M/uL (4.2-5.4); White Blood Count 4.66 K/uL (4.8-10.8)
[2021-04-07 08:04] LABS: BUN Creatinine Ratio 7.5 (10-20); Calcium 10.2 mg/dl (8.5-10.1); Creatinine Clr Calc Pharmacy 29.4 ml/min; Est GFR (African American) 42.4 ml/min; Est GFR (Non-African American) 36.6 ml/min; Potassium 3.8 mmol/L (3.5-5.1)
[2021-04-07 08:11] LABS: INR 2.3 (0.9-1.1); Partial Thromboplastin Ratio 2.8; Prothrombin Time 21.7 Seconds (9.0-12.0)
[2021-04-07 08:22] LABS: Partial Thromboplastin Time 74.4 Seconds (21.0-31.0)
[2021-04-07] MEDS: INSULIN ASPART PER UNIT SC SCH ×4 (08:56→21:11)
[2021-04-07] MEDS: METOPROLOL TARTRATE 25 MG TAB PO SCH ×2 (09:04→21:09)
[2021-04-07] MEDS: AMITRIPTYLINE HCL 50 MG TAB PO SCH ×2 (09:05→21:09)
[2021-04-07] MEDS: FUROSEMIDE 80 MG TAB PO SCH (09:06)
[2021-04-07] MEDS: rOPINIRole HCL 2 MG TABLET PO SCH ×3 (09:06→21:09)
[2021-04-07] MEDS: SPIRONOLACTONE 12.5 MG TAB PO SCH (09:07)
[2021-04-07] MEDS: FOLIC ACID 1 MG TAB PO SCH (09:08)
[2021-04-07] MEDS: INSULIN GLARGINE SOLOSTAR 100 UNITS/ML 3 ML PEN SC SCH (09:08)
--- NOTE | 2021-04-07 10:14 | Cardiology Progress Note ---
Date of Service April 07, 2021 Assessment & Plan (1) Recurrent syncope: (2) Hypokalemia: (3) Dehydration: (4) Atrial fibrillation: (5) History of loop recorder: Plan: Patient with recurrent events/falls/possible syncope over the last 6 months. Unwitnessed. Last admission in Dec 2020 with work up unrevealing. Head/neck CTA were normal. Echo revealed stable/normal gradients of mechanical mitral valve, preserved LV function, and underlying moderate TR. She underwent outpatient ZIO without arrhythmias. Due to recurrent events, she underwent LINQ implant last week on 03/31/[address] Vila. No arrhythmias correlating with syncopal spells thus far on LINQ No events during admission over the last several days. No arrhythmias on telemetry. BP has been controlled. She has known chronic afib with controlled rates on low dose metoprolol. EEG was unremarkable. Consider longer ambulatory EEG per neurology. Diuretics were on hold initially and she developed mild pulm congestion. Now improved. continue furosemide 80 mg alternating with 40 mg and spironolactone (home doses) [place] barraza advised which may aid with possible orthostatic symptoms. INR was supratherapeutic on admission, treated with Vit K. Now INR remains subtherapeutic. INR 2.3 this morning. Goal 3-3.5. Continue IV heparin to coumadin will need close f/u with anticoag clinic given labile INR. recommend PT today as patient is concerned with returning home and having recurrent spells of "falls/syncope". Continue all other cardiac medications. Patient has significant stressors over mother's illness/hospice, likely contributing to her current issues. Anticipate discharge in the next 24 hours Case discussed with Dr. Sutton. Admission and Anticipated Discharge Date Admission Date: April 04, 2021 Supervising Physician Co-Signing Physician Notes Supervising Physician Attestation: I have personally performed a history and physical examination on the patient. I agree with the physician delinquent tax collection assistant's findings and plan as documented with the following additions. Continue heparin to coumadin, INR goal 3-3.5 Judd Sutton, DO Subjective Patient resting in bed, feeling well. Denies recurrent falls, spells or dizziness/syncope/near syncope. no chest pain or dyspnea. PT was ordered but not yet completed. INR lower today. Remains on IV heparin. edema stable. wearing compression stockings. Review of Systems Review of Systems: All systems reviewed & are unremarkable except as noted in HPI & below Physical Exam Constitutional: WD/WN, vitals as above Eyes: PERRL, conjunctivae normal, anicteric sclerae Neck: trachea midline, no thyromegaly Respiratory: normal respiratory effort, lungs clear to auscultation normal respiratory effort Auscultation: lungs clear to auscultation bilaterally Cardiovascular: Rate/Rhythm: + irregularly irregular Heart Sounds: + murmur (II/ systolic murmur ) Vessels: no JVD and no carotid bruit Extremities: + edema (trace b/l edema with chronic varicosities) Gastrointestinal (Abdomen): normal bowel sounds, soft, nontender, no hepatosplenomegaly Neurologic: PERRL, EOMI, accommodation nl, no face palsy, no dysarthria Psychiatric: Orientation: alert and oriented x 3 Affect: + anxious affect Results & Data ([facility]) Vital Signs (Past 12 Hours) Vital Signs Temp Pulse Pulse Resp BP Pulse Ox 04/07/21 09:00 36.8 C 88 20 124/72 98 04/07/21 08:10 74 04/07/21 03:50 36.3 C L 68 16 118/72 100 04/06/21 23:06 74 04/06/21 22:57 36.5 C 68 17 106/63 100 Laboratory Results 04/07/21 04/07/21 04/07/21 Range/Units 07:25 07:07 07:07 WBC (4.8-10.8) K/uL RBC (4.2-5.4) M/uL Hgb (12.0-16.0) g/dL Hct (37-47) % MCV (80-100) fL MCH (25-34) pg MCHC (32-36) g/dL RDW Std Deviation (36.4-46.3) fL RDW Coeff of Courtney (11.5-14.5) % Plt Count (130-400) K/uL MPV (7.4-10.4) fL Immature Gran % (Auto) % Neut % (Auto) % Lymph % (Auto) % [place] % (Auto) % Eos % (Auto) % Baso % (Auto) % Neut # (Auto) (1.4-6.5) K/uL Lymph # (Auto) (1.2-3.4) K/uL [place] # (Auto) (0.11-0.59) K/uL Eos # (Auto) (0-0.5) K/uL Baso # (Auto) (0-0.2) K/uL Immature Gran # (Auto) (0.00-0.02) K/uL PT 21.7 H (9.0-12.0) Seconds INR 2.3 H (0.9-1.1) APTT 74.4 H* (21.0-31.0) Seconds PTT Ratio 2.8 Sodium 135 L (136-145) mmol/L Potassium 3.8 (3.5-5.1) mmol/L Chloride 101 (98-107) mmol/L Carbon Dioxide 30 (21-32) mmol/L Anion Gap 4 (3-11) BUN 11 (6-23) mg/dl Creatinine 1.47 H (0.6-1.2) mg/dl Est Cr Clr Drug Dosing 29.4 ml/min Est GFR ( Amer) 42.4 ml/min Est GFR (Non-Af Amer) 36.6 ml/min BUN/Creatinine Ratio 7.5 L (10-20) Glucose 122 H (70-99(Fasting)) mg/dl POC Glucose 117 H (70-99) mg/dl Calcium 10.2 H (8.5-10.1) mg/dl 04/07/21 04/06/21 04/06/21 Range/Units 07:07 22:27 20:10 WBC 4.66 L (4.8-10.8) K/uL RBC 3.86 L (4.2-5.4) M/uL Hgb 10.6 L (12.0-16.0) g/dL Hct 34.1 L (37-47) % MCV 88.3 (80-100) fL MCH 27.5 (25-34) pg MCHC 31.1 L (32-36) g/dL RDW Std Deviation 49.2 H (36.4-46.3) fL RDW Coeff of Courtney 15.2 H (11.5-14.5) % Plt Count 141 (130-400) K/uL MPV 10.9 H (7.4-10.4) fL Immature Gran % (Auto) 0.2 % Neut % (Auto) 56.9 % Lymph % (Auto) 26.2 % [place] % (Auto) 8.6 % Eos % (Auto) 7.9 % Baso % (Auto) 0.2 % Neut # (Auto) 2.65 (1.4-6.5) K/uL Lymph # (Auto) 1.22 (1.2-3.4) K/uL [place] # (Auto) 0.40 (0.11-0.59) K/uL Eos # (Auto) 0.37 (0-0.5) K/uL Baso # (Auto) 0.01 (0-0.2) K/uL Immature Gran # (Auto) 0.01 (0.00-0.02) K/uL PT (9.0-12.0) Seconds INR (0.9-1.1) APTT 61.3 H* (21.0-31.0) Seconds PTT Ratio 2.3 Sodium (136-145) mmol/L Potassium (3.5-5.1) mmol/L Chloride (98-107) mmol/L Carbon Dioxide (21-32) mmol/L Anion Gap (3-11) BUN (6-23) mg/dl Creatinine (0.6-1.2) mg/dl Est Cr Clr Drug Dosing ml/min Est GFR ( Amer) ml/min Est GFR (Non-Af Amer) ml/min BUN/Creatinine Ratio (10-20) Glucose (70-99(Fasting)) mg/dl POC Glucose 142 H (70-99) mg/dl Calcium (8.5-10.1) mg/dl 04/06/21 04/06/21 04/06/21 Range/Units 16:37 15:05 11:19 WBC (4.8-10.8) K/uL RBC (4.2-5.4) M/uL Hgb (12.0-16.0) g/dL Hct (37-47) % MCV (80-100) fL MCH (25-34) pg MCHC (32-36) g/dL RDW Std Deviation (36.4-46.3) fL RDW Coeff of Courtney (11.5-14.5) % Plt Count (130-400) K/uL MPV (7.4-10.4) fL Immature Gran % (Auto) % Neut % (Auto) % Lymph % (Auto) % [place] % (Auto) % Eos % (Auto) % Baso % (Auto) % Neut # (Auto) (1.4-6.5) K/uL Lymph # (Auto) (1.2-3.4) K/uL [place] # (Auto) (0.11-0.59) K/uL Eos # (Auto) (0-0.5) K/uL Baso # (Auto) (0-0.2) K/uL Immature Gran # (Auto) (0.00-0.02) K/uL PT (9.0-12.0) Seconds INR (0.9-1.1) APTT 69.0 H* (21.0-31.0) Seconds PTT Ratio 2.6 Sodium (136-145) mmol/L Potassium (3.5-5.1) mmol/L Chloride (98-107) mmol/L Carbon Dioxide (21-32) mmol/L Anion Gap (3-11) BUN (6-23) mg/dl Creatinine (0.6-1.2) mg/dl Est Cr Clr Drug Dosing ml/min Est GFR ( Amer) ml/min Est GFR (Non-Af Amer) ml/min BUN/Creatinine Ratio (10-20) Glucose (70-99(Fasting)) mg/dl POC Glucose 136 H 89 (70-99) mg/dl Calcium (8.5-10.1) mg/dl Diagnostic Findings Telemetry reviewed - Atrial fibrillation with controlled ventricular rates, 70- 80 bpm Medications Administered Current Inpatient Medications Acetaminophen (Acetaminophen 325 Mg Tab) 650 mg PO Q4H PRN PRN Reason: Pain or Fever Stop: 05/03/21 03:35 Last Admin: 04/06/21 22:30 Dose: 650 mg Documented by: Hydrocodone Bitart/Acetaminophen (Hydrocodone/Acetamophen 5/325mg Tab) 1 tab PO QID PRN PRN Reason: Pain Stop: 04/17/21 02:39 Amitriptyline HCl (Amitriptyline Hcl 50 Mg Tab) 50 mg PO BID PRISCILA Stop: 05/03/21 08:59 Last Admin: 04/07/21 09:05 Dose: 50 mg Documented by: Dextrose (Dextrose 50% 50 Ml Syringe) 25 - 50 ml IV UD PRN; Protocol PRN Reason: Hypoglycemia Protocol Stop: 05/03/21 03:35 Folic Acid (Folic Acid 1 Mg Tab) 1 mg PO QAM [facility] Stop: 05/03/21 08:59 Last Admin: 04/07/21 09:08 Dose: 1 mg Documented by: Furosemide (Furosemide 80 Mg Tab) 80 mg PO MoWeFrSa@0900 [facility] Stop: 05/05/21 08:59 Last Admin: 04/07/21 09:06 Dose: 80 mg Documented by: Furosemide (Furosemide 40 Mg Tab) 40 mg PO SuTuTh@0900 [facility] Stop: 05/06/21 08:59 Last Admin: 04/06/21 08:13 Dose: 40 mg Documented by: Glucagon (Glucagon For Inj 1 Mg Vial) 1 mg SQ UD PRN; Protocol PRN Reason: Hypoglycemia Protocol Stop: 05/03/21 03:35 Glucose (Glucose 10 Tabs/Tube) 4 - 8 tabs PO UD PRN; Protocol PRN Reason: Hypoglycemia Protocol Stop: 05/03/21 03:35 Glucose (Glucose 40% Gel 15 Gm Tube) 15 - 30 gm PO UD PRN; Protocol PRN Reason: Hypoglycemia Protocol Stop: 05/03/21 03:35 Heparin Sodium/Dextrose (Heparin Sodium/Dextrose) 25,000 units in 500 mls @ 9 mls/hr IV .Q24H [facility]; Protocol Stop: 05/05/21 11:44 Last Titration: 04/07/21 08:30 Dose: 450 units/hr, 9 mls/hr Documented by: Insulin Aspart (Insulin Aspart Per Unit) 0 units SC ACHS [facility] Stop: 05/03/21 03:35 Last Admin: 04/07/21 08:56 Dose: 3 units Documented by: Insulin Glargine (Insulin Glargine Solostar 100 Units/Ml 3 Ml Pen) 5 units SC DAILY [facility] Stop: 05/03/21 08:59 Last Admin: 04/07/21 09:08 Dose: 5 units Documented by: Levothyroxine Sodium (Levothyroxine Sodium 100 Mcg Tablet) 100 mcg PO DAILYBB [facility] Stop: 05/03/21 06:29 Last Admin: 04/07/21 05:14 Dose: 100 mcg Documented by: Metoclopramide HCl (Metoclopramide Hcl Inj 5 Mg/Ml 2 Ml Vial) 5 mg IV Q6H PRN PRN Reason: nv Stop: 05/03/21 03:35 Metoprolol Tartrate (Metoprolol Tartrate 25 Mg Tab) 12.5 mg PO BID PRISCILA Stop: 05/03/21 08:59 Last Admin: 04/07/21 09:04 Dose: 12.5 mg Documented by: Miscellaneous (Carbohydrates For Hypoglycemia ) 15 - 30 gm PO UD PRN PRN Reason: Hypoglycemia Protocol Stop: 05/03/21 03:35 Pantoprazole Sodium (Pantoprazole 40 Mg Tab) 40 mg PO PM PRISCILA Stop: 05/03/21 20:59 Last Admin: 04/06/21 21:40 Dose: 40 mg Documented by: Ropinirole HCl (Ropinirole Hcl 2 Mg Tablet) 2 mg PO TID PRISCILA Stop: 05/03/21 08:59 Last Admin: 04/07/21 09:06 Dose: 2 mg Documented by: Rosuvastatin Calcium (Rosuvastatin Calcium 20 Mg Tab) 20 mg PO HS PRISCILA Stop: 05/03/21 20:59 Last Admin: 04/06/21 21:40 Dose: 20 mg Documented by: Spironolactone (Spironolactone 12.5 Mg Tab) 12.5 mg PO DAILY PRISCILA Stop: 05/04/21 11:59 Last Admin: 04/07/21 09:07 Dose: 12.5 mg Documented by: Warfarin Sodium (Warfarin Sod 10 Mg Tab) 10 mg PO DAILY@1600 PRISCILA Stop: 05/06/21 15:59 Last Admin: 04/06/21 15:43 Dose: 10 mg Documented by: (1) Atrial fibrillation Atrial fibrillation type: unspecified Qualified Code(s): I48.91 - Unspecified atrial fibrillation
[2021-04-07 15:03] LABS: Partial Thromboplastin Ratio 2.1
[2021-04-07] MEDS: WARFARIN SOD 10 MG TAB PO SCH (16:49)
[2021-04-07] MEDS ORDERED: NITROGLYCERIN 0.3 MG/1 TAB 100 TAB BTL SL PRN (18:57)
[2021-04-07] MEDS ORDERED: NITROGLYCERIN SL 0.4 MG/TAB TAB SL STA (18:58)
[2021-04-07] MEDS ORDERED: NITROGLYCERIN SL 0.4 MG/TAB TAB ONE (18:59)
[2021-04-07] MEDS ORDERED: MoRPHine SULFATE 2 MG/ML CARP IV STA (19:09)
[2021-04-07] MEDS ORDERED: ALUMINUM/MAGNESIUM SUSP 18 ML, LIDOCAINE VISCOUS 2% SOLN 6 ML, BARCODE IDENTIFIER 1 EA PO ONE (19:09)
--- NOTE | 2021-04-07 19:25 | Hospitalist Progress Note ---
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 She underwent outpatient ZIO without arrhythmias. Due to recurrent events, she underwent LINQ implant last week on 03/31/[address] Vila. Linq monitor unrevealing Metoprolol decreased from 50 to 25mg po daily Orthostasis orthostatic VS: negative Seizures, history embolic CVA EEG negative 72 hour ambulatory EEG monitoring recommended by Neurologist Dr. German Mild Pulmonary Congestion usual Lasix, Aldactone ordered hx mechanical MVR on Coumadin, INR supratherapeutic INR 2.3 Heparin drip + Coumadin 10mg today INR daily Hypertension stable Hyperlipidemia on statin Rx DM2 diet-controlled, well-controlled as of recent hemoglobin A1c of 24 January 2021 CKD, creatinine at baseline Hypothyroidism, euthyroid chronic anemia, hemoglobin at baseline Hypokalemia secondary to home diuretic Rx Disposition anticipate d/c home when medically stable PT/OT eval ordered Admission and Anticipated Discharge Date Admission Date: April 04, 2021 Subjective Seen resting in bed, comfortable, not in distress, good spirits Follow-up for recurrent syncope, elevated INR, etc. States she feels improved overall No palpitations, dizziness, presyncope or syncope In the evening patient was reporting left-sided chest pain Did not improve with sublingual nitro Was given GI cocktail and morphine IV with improvement Review of Systems Review of Systems: all noted and negative except for above Physical Exam Physical Exam: General- oriented x 3, not in distress, speaks in sentences with no effort or accessory muscle use Eyes- anicteric Neck- no JVD Lungs- clear breath sounds bilaterally Heart- normal rate, regular rhythm; no murmurs Abdomen- normal bowel sounds, nondistended, soft, nontender Extremities- no pretibial edema, no calf tenderness Neuro- alert, oriented x 3; no gross focal neurologic deficits Skin- warm & dry Results & Data Results & Data ([facility]) Vital Signs (Past 12 Hours) Vital Signs Temp Pulse Pulse Resp BP BP Pulse Ox 04/07/21 19:07 135/67 04/07/21 18:47 36.6 C 90 17 134/76 98 02/18/22 16:53 90 04/07/21 15:49 36.5 C 89 17 127/69 97 04/07/21 12:00 36.8 C 84 18 111/73 98 04/07/21 09:00 36.8 C 88 20 124/72 98 04/07/21 08:10 74 all noted and reviewed including below
[2021-04-07] MEDS: ROSUVASTATIN CALCIUM 20 MG TAB PO SCH (21:09)
[2021-04-07] MEDS: PANTOprazole 40 MG TAB PO SCH (21:09)
[2021-04-08] MEDS: ACETAMINOPHEN 325 MG TAB PO PRN ×2 (04:12→14:53)
[2021-04-08] MEDS: LEVOTHYROXINE SODIUM 100 MCG TABLET PO SCH (05:38)
[2021-04-08 07:31] LABS: INR 3.7 (0.9-1.1); Partial Thromboplastin Ratio 2.6
[2021-04-08 07:49] LABS: Partial Thromboplastin Time 69.4 Seconds (21.0-31.0)
[2021-04-08] MEDS: INSULIN ASPART PER UNIT SC SCH ×4 (08:43→21:16)
[2021-04-08] MEDS: METOPROLOL TARTRATE 25 MG TAB PO SCH ×2 (08:49→21:17)
[2021-04-08] MEDS: FUROSEMIDE 80 MG TAB PO SCH (08:49)
[2021-04-08] MEDS: rOPINIRole HCL 2 MG TABLET PO SCH ×3 (08:50→21:17)
[2021-04-08] MEDS: AMITRIPTYLINE HCL 50 MG TAB PO SCH ×2 (08:50→21:17)
[2021-04-08] MEDS: SPIRONOLACTONE 12.5 MG TAB PO SCH (08:50)
[2021-04-08] MEDS: INSULIN GLARGINE SOLOSTAR 100 UNITS/ML 3 ML PEN SC SCH (08:52)
--- NOTE | 2021-04-08 09:28 | Electrocardiogram Report ---
Test Reason : Blood Pressure : / mmHG Vent. Rate : 091 BPM Atrial Rate : 089 BPM P-R Int : 000 ms QRS Dur : 100 ms QT Int : 390 ms P-R-T Axes : 000 -43 106 degrees QTc Int : 479 ms Poor data quality, interpretation may be adversely affected Atrial fibrillation Left axis deviation Minimal voltage criteria for LVH, may be normal variant Prolonged QT Abnormal ECG When compared with ECG of 17-FEB-2020 06:33, Incomplete right bundle branch block is no longer Present T wave inversion now evident in Lateral leads Confirmed by Remigio Luna ([id number]) on 04/08/2021 9:28:21 AM Referred By: REFERRED SELF Confirmed By:Remigio Luna
[2021-04-08] MEDS: FOLIC ACID 1 MG TAB PO SCH (09:48)
--- NOTE | 2021-04-08 17:35 | Hospitalist Progress Note ---
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 She underwent outpatient ZIO without arrhythmias. Due to recurrent events, she underwent LINQ implant last week on 03/31/[address] Vila. Linq monitor unrevealing Metoprolol decreased from 50 to 25mg po daily Orthostasis orthostatic VS: negative Seizures, history embolic CVA EEG negative 72 hour ambulatory EEG monitoring recommended by Neurologist Dr. German outpatient Neuro ff up Mild Pulmonary Congestion usual Lasix, Aldactone ordered hx mechanical MVR on Coumadin, INR supratherapeutic INR 3.7 d/c Heparin drip , hold Coumadin today INR daily Hypertension stable Hyperlipidemia on statin Rx DM2 diet-controlled, well-controlled as of recent hemoglobin A1c of 24 January 2021 CKD, creatinine at baseline Hypothyroidism, euthyroid chronic anemia, hemoglobin at baseline Hypokalemia secondary to home diuretic Rx Disposition anticipate d/c home when medically stable PT/OT eval ordered: recommend to return home Admission and Anticipated Discharge Date Admission Date: April 04, 2021 Subjective Seen resting in bed, comfortable, not in distress Follow-up for recurrent syncope, anticoagulation on Coumadin, etc. States she feels fine overall No dizziness, palpitations, chest pain, presyncope or syncope Chest pain has resolved No other symptoms Review of Systems Review of Systems: all noted and negative except for above Physical Exam Physical Exam: General- oriented x 3, not in distress, speaks in sentences with no effort or accessory muscle use Eyes- anicteric Neck- no JVD Lungs- clear BS BL Heart- normal rate, regular rhythm; no murmurs Abdomen- normal bowel sounds, nondistended, soft, nontender Extremities- no pretibial edema, no calf tenderness Neuro- alert, oriented x 3; no gross focal neurologic deficits Skin- warm & dry Results & Data Results & Data ([facility]) Vital Signs (Past 12 Hours) Vital Signs Temp Pulse Resp BP BP Pulse Ox 04/08/21 15:38 36.6 C 116 H 20 121/64 95 04/08/21 12:04 36.7 C 67 18 162/74 H 96 04/08/21 08:49 85 132/74 04/08/21 07:57 36.4 C L 69 20 121/70 100 all noted and reviewed including below
[2021-04-08] MEDS ORDERED: HYDROCODONE/ACETAMOPHEN 5/325MG TAB PO PRN (18:41)
[2021-04-08] MEDS: HEPARIN SODIUM/DEXTROSE 25,000 UNITS/500 ML BAG IV SCH (19:03)
[2021-04-08] MEDS ORDERED: traMADol HCL 50 MG TABLET PO PRN (20:19)
[2021-04-08] MEDS: PANTOprazole 40 MG TAB PO SCH (21:17)
[2021-04-08] MEDS: ROSUVASTATIN CALCIUM 20 MG TAB PO SCH (21:17)
[2021-04-09] MEDS: LEVOTHYROXINE SODIUM 100 MCG TABLET PO SCH (05:34)
[2021-04-09 06:30] LABS: INR 4.6 (0.9-1.1); Prothrombin Time 41.7 Seconds (9.0-12.0)
[2021-04-09] MEDS: SPIRONOLACTONE 12.5 MG TAB PO SCH (07:16)
[2021-04-09] MEDS: rOPINIRole HCL 2 MG TABLET PO SCH (07:16)
[2021-04-09] MEDS: METOPROLOL TARTRATE 25 MG TAB PO SCH (07:16)
[2021-04-09] MEDS: FUROSEMIDE 40 MG TAB PO SCH (07:16)
[2021-04-09] MEDS: AMITRIPTYLINE HCL 50 MG TAB PO SCH (07:16)
[2021-04-09] MEDS: FOLIC ACID 1 MG TAB PO SCH (07:16)
[2021-04-09] MEDS: INSULIN ASPART PER UNIT SC SCH (08:36)
[2021-04-09] MEDS: INSULIN GLARGINE SOLOSTAR 100 UNITS/ML 3 ML PEN SC SCH (08:40)
--- NOTE | 2021-04-09 09:28 | Hospitalist Progress Note ---
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 She underwent outpatient ZIO without arrhythmias. Due to recurrent events, she underwent LINQ implant last week on 03/31/[address] Vila. Linq monitor unrevealing Metoprolol decreased from 50 to 12.5mg po daily Orthostasis orthostatic VS: negative Seizures, history embolic CVA EEG negative 72 hour ambulatory EEG monitoring recommended by Neurologist Dr. German outpatient Neuro ff up Mild Pulmonary Congestion usual Lasix, Aldactone ordered euvolemic on discharge hx mechanical MVR on Coumadin, INR supratherapeutic INR 4.6 advised to hold coumadin will inform Coumadin clinic, patient needs INR Saturday or Hypertension stable Hyperlipidemia on statin Rx DM2 diet-controlled, well-controlled as of recent hemoglobin A1c of January 19 021 CKD, creatinine at baseline Hypothyroidism, euthyroid chronic anemia, hemoglobin at baseline Hypokalemia secondary to home diuretic Rx Disposition dc home ff up with PCP in 1 week plan of care discussed with patient in detail and at length all questions answered she is understanding, agreeable, comfortable with the plan of care Admission and Anticipated Discharge Date Admission Date: April 04, 2021 Subjective ff up for recurrent syncope, etc seen resting in bed, comfortable not in distress states she feels fine overall no chest pain, dyspnea, palpitations, dizziness no presyncope/syncope Review of Systems Review of Systems: all noted and negative except for above Physical Exam Physical Exam: General- oriented x 3, not in distress, speaks in sentences with no effort or accessory muscle use Eyes- anicteric Neck- no JVD Lungs- clear breath sounds bilaterally, no rales/wheezes Heart- normal rate, regular rhythm; no murmurs Abdomen- normal bowel sounds, nondistended, soft, nontender Extremities- no pretibial edema, no calf tenderness Neuro- alert, oriented x 3; no gross focal neurologic deficits Skin- warm & dry Results & Data Results & Data ([facility]) Vital Signs (Past 12 Hours) Vital Signs Temp Pulse Pulse Pulse Resp BP Pulse Ox 04/09/21 07:17 36.3 C L 86 18 151/61 H 98 02/20/22 03:20 36.8 C 77 16 121/70 100 04/08/21 23:26 103 H 04/08/21 23:25 36.5 C 16 99 all noted and reviewed including below
--- NOTE | 2021-04-09 18:46 | Discharge Summary ---
Date of Service April 09, 2021 Admission HPI Per Admitting Provider History obtained from patient and records. Medical history significant for SSS/rheumatic heart disease/history of mechanical MVR on Coumadin, hypertension, hyperlipidemia, history embolic CVA as per records, DM2 diet-controlled, CRI (baseline creatinine 1.6-2 as per records), chronic anemia (baseline hemoglobin of 10). Recent confinement December 2020 for recurrent syncope. No bradycardic events during confinement. 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 Outpatient Zio patch showed A. fib. Another unwitnessed syncopal event 2 weeks ago. [facility] [place] manager recommended Linq implantation on outpatient visit last week. Patient underwent procedure 3 days ago. 3 unwitnessed recurrent syncopal events the last 2 days without headache, chest pain, S OB, tongue biting, incontinence symptoms. Some stress with patient mother currently in the hospital. Patient brought to ER for evaluation. 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 Exam (Per Admitting) Constitutional GENERAL: Comfortable, slightly anxious, no respiratory distress SKIN: Pallor,, warm HEENT: Bespectacled, pale palpebral conjunctivae, no ptosis, dry buccal mucosa NECK : Supple, no tenderness CHEST : CTA, no tenderness HEART : Irregular, systolic murmur ABDOMEN: Some distention, nontender EXTREMITIES : bilateral LE swelling, no LE tenderness, no other conspicuous deformities noted NEUROLOGIC : Coherent, no facial asymmetry, mild dysarthria (chronic as per patient ), no other gross focality Discharge Data Consultations 04/03/21 01:31 ED Decision to Admit Stat 04/03/21 02:42 Consult Cardiology Routine Hospital Course (1) Recurrent syncope: Recurrent Syncope: possible symptomatic bradycardia, hx SSS per Medical Health Researcher: Echo revealed stable/normal gradients of mechanical mitral valve, preserved LV function, and underlying moderate TR. She underwent outpatient ZIO without arrhythmias. Due to recurrent events, she underwent LINQ implant last week on 03/31/[address] Vila. Linq monitor unrevealing Metoprolol decreased from 50 to 12.5mg po daily Orthostasis orthostatic VS: negative Seizures, history embolic CVA EEG negative 72 hour ambulatory EEG monitoring recommended by Neurologist Dr. German outpatient Neuro ff up Mild Pulmonary Congestion usual Lasix, Aldactone ordered euvolemic on discharge hx mechanical MVR on Coumadin, INR supratherapeutic INR 4.6 advised to hold coumadin will inform Coumadin clinic, patient needs INR Saturday or Hypertension stable Hyperlipidemia on statin Rx DM2 diet-controlled, well-controlled as of recent hemoglobin A1c of 24 January 2021 CKD, creatinine at baseline Hypothyroidism, euthyroid chronic anemia, hemoglobin at baseline Hypokalemia secondary to home diuretic Rx Disposition dc home ff up with PCP in 1 week plan of care discussed with patient in detail and at length all questions answered she is understanding, agreeable, comfortable with the plan of care
== END 2021-04-09 12:08 | disposition home or self-care (01) | DRG 312 ==
LOC: ED 22:49 → EDINP 22:49 → SUATTDRO 04-03 02:32 → 1E 04-03 03:58 → SUATTDRO 04-04 10:12 → 1E 04-04 17:16 → 2S 04-05 14:08 → UNDODISIN 04-05 19:38

== ENCOUNTER 2021-07-18 03:49 | Inpatient (IN) ==
[2021-07-18] MEDS ORDERED: ALBUT/IPRATROP 3MG/0.5MG NEB 3 ML VIAL NEB STA (04:10)
[2021-07-18 04:22] LABS: Basophils # (auto) 0.01 K/uL (0-0.2); Basophils % (auto) 0.1 %; Eosinophils # (auto) 0.21 K/uL (0-0.5); Eosinophils % (auto) 2.5 %; Hematocrit (blood only) 31.9 % (37-47); Immature Granulocytes # (auto) 0.03 K/uL (0.00-0.02); Immature Granulocytes % (auto) 0.4 %; Lymphocytes # (auto) 0.81 K/uL (1.2-3.4); Lymphocytes % (auto) 9.7 %; Mean Corpuscular Hemoglobin 25.8 pg (25-34); Mean Corpuscular Hgb Conc 31.3 g/dL (32-36); Mean Corpuscular Volume 82.4 fL (80-100); Monocytes # (auto) 0.73 K/uL (0.11-0.59); Monocytes % (auto) 8.7 %; Neutrophils # (auto) 6.57 K/uL (1.4-6.5); Neutrophils % (auto) 78.6 %; Platelet Count 159 K/uL (130-400); RDW Coefficient of Variation 15.8 % (11.5-14.5); RDW Standard Deviation 47.2 fL (36.4-46.3); Red Blood Count 3.87 M/uL (4.2-5.4); White Blood Count 8.36 K/uL (4.8-10.8)
[2021-07-18 04:39] LABS: Troponin I High Sensitivity 10.5 pg/ml (0-14)
[2021-07-18 04:51] LABS: Partial Thromboplastin Ratio 1.9; Prothrombin Time 48.4 Seconds (9.0-12.0)
[2021-07-18 04:52] LABS: Albumin Globulin Ratio 1.4 (0.9-2); BUN Creatinine Ratio 13.9 (10-20); Bilirubin,Total 1.1 mg/dl (0.2-1.0); Calcium 9.9 mg/dl (8.5-10.1); Creatinine Clr Calc Pharmacy 33.2 ml/min; Est GFR (African American) 46.1 ml/min; Est GFR (Non-African American) 39.8 ml/min; Globulin 2.9 gm/dl (2.5-4.0); Potassium 3.3 mmol/L (3.5-5.1); Total Protein 6.9 gm/dl (6.0-8.3)
[2021-07-18 04:57] LABS: Partial Thromboplastin Time 51.2 Seconds (21.0-31.0)
[2021-07-18 05:09] LABS: Appearance Urine Clear (Clear); Bacteria Urine Automated Negative (Negative); Bilirubin Urine Negative (Negative); Blood Urine 1+ (Negative); Cast Urine Automated 0 /lpf (0-5); Color Urine Yellow; Glucose Urine UA Negative (Negative); Ketones Urine Negative (Negative); Leukocyte Esterase Urine 1+ (Negative); Nitrite Urine Negative (Negative); Specific Gravity Urine 1.012 (1.000-1.030); Urobilinogen Urine Negative (Negative); pH Urine 7.5 (4.5-7.5)
[2021-07-18] MEDS ORDERED: OPTIRAY 320 125ml IV ONE (05:16)
[2021-07-18 05:18] LABS: Protein Urine 1+ (Negative)
--- NOTE | 2021-07-18 06:43 | XRay Report ---
XR chest 1V portable HISTORY: 65 years-old Female cough, sob acute cough with shortness of breath COMPARISON: CTA chest of same day, chest radiograph 04/04/2021 TECHNIQUE: Portable AP view of the chest FINDINGS: Cardiac silhouette is enlarged. Prior median sternotomy with mitral valve prosthesis. A loop recorder device is present. No pneumothorax. Small to moderate right pleural effusion. Pulmonary vascular con gestion with interstitial coarsening and mild right basilar consolidation. IMPRESSION: 1. Cardiomegaly with pulmonary edema. 2. Small to moderate right pleural effusion with mild right basilar consolidation. ACT 112: Negative or not required by law. The above report was generated using voice recognition software. It may contain grammatical, syntax o r spelling errors. Electronically signed by: Gasper Scott M.D. 07/18/2021 6:41 AM
--- NOTE | 2021-07-18 08:40 | Electrocardiogram Report ---
Test Reason : Blood Pressure : / mmHG Vent. Rate : 083 BPM Atrial Rate : 068 BPM P-R Int : 000 ms QRS Dur : 086 ms QT Int : 390 ms P-R-T Axes : 000 -38 089 degrees QTc Int : 458 ms Poor data quality, interpretation may be adversely affected Atrial fibrillation Left anterior fascicular block Pulmonary disease pattern Abnormal ECG When compared with ECG of 23-JUN-2021 23:09, No significant change Confirmed by Jose Roland ([id number]) on 07/18/2021 8:39:48 AM Referred By: REFERRED SELF Confirmed By:Jose Roland
--- NOTE | 2021-07-18 08:53 | CT Scan Report ---
CHEST CTA for PULMONARY ARTERIES CT DOSE: 242.91 mGy.cm HISTORY: Cough. R Effusion on cxr worse than previous cxr TECHNIQUE: Multiaxial CT images of the chest were performed following the intravenous administration of contrast to evaluate the pulmonary arteries. Maximal intensity projection images were also obtaine d. A dose lowering technique was utilized adhering to the principles of ALARA. COMPARISON STUDY: Chest CTA 02/16/2020. FINDINGS: Limited views the upper abdomen demonstrate a normal liver, spleen, adrenal glands. There i s retrograde opacification of the hepatic veins. The heart remains moderately enlarged. A mitral valv e prosthesis and poststernotomy changes are again noted. There is a small right pleural effusion. No left pleural effusion. Suboptimal evaluation of the thoracic aorta due to the lack of intravenous con trast. However, no definite evidence for a dissection. There is normal caliber thoracic aorta. No mela ling defects within the pulmonary arteries to suggest a pulmonary embolus. No mediastinal or hilar ly mphadenopathy. Left anterior chest wall loop recorder noted. No suspicious lytic or blastic osseous l esions. No pneumothorax. The central airways appear patent. Patchy consolidation within the base the right lower lobe and right middle lobe. This is nonspecific but favors atelectasis. A pneumonia could also have a similar appearance. IMPRESSION: 1. No evidence for pulmonary embolus. 2. Small right pleural effusion. 3. Moderate cardiomegaly, unchanged. 4. Right middle lobe and right lower lobe airspace opacities. This favors atelectasis. A superimposed pneumonia could also have a similar appearance. ACT 112: Negative or not required by law. Electronically signed by: Darshan Mosquera M.D. 07/18/2021 8:50 AM
[2021-07-18] MEDS ORDERED: POLYETHYLENE (MIRALAX) 17 GM PACK PO PRN (09:01)
[2021-07-18] MEDS ORDERED: ALBUTEROL HFA 8 GM INHALER INH PRN (09:01)
[2021-07-18] MEDS ORDERED: NITROGLYCERIN SL 0.4 MG/TAB TAB SL PRN ×2 (09:01)
--- NOTE | 2021-07-18 09:08 | History and Physical Report ---
DATE OF ADMISSION: 07/18/2021. CHIEF COMPLAINT: Shortness of breath. HISTORY OF PRESENT ILLNESS: A 65-year-old female with past medical history significant for type 2 diabetes, currently not on any medications, chronic kidney disease stage III, hypothyroidism, hyperlipidemia, atrial fibrillation, tachybrady syndrome, history of syncope, status post loop recorder, chronic diastolic CHF, history of rheumatic heart disease, history of CAD, varicose veins of both legs, history of GERD, generalized osteoarthritis, restless legs syndrome, status post mechanical mitral valve replacement, history of TIA, history of recurrent falls, generalized anxiety disorder. The patient lives alone at home, ambulates with a walker. She comes here because of shortness of breath and cough. The patient is having cough for 2-3 months. She recently saw allergy doctor and thought it could be allergy to grass and she was prescribed albuterol p.r.n., but last 2 days cough had got really worse and tonight she was feeling short of breath. That is the reason she came to the hospital. She was saturating only 84% on room air. On 2 liters, she is saturating okay. Denies any fever and chills.Today she was feeling severe chest tightness. Denies any nausea. No vomiting, no abdominal pain. Normal bowel and bladder movements. She is also having lower extremity edema, which is getting a little worse. Denies any headache. No blurred visions. Has some runny nose. No sore throat. Appetite is okay. Sometimes food gets stuck in her throat. Afebrile. Currently, resting comfortably and hemodynamically stable. ALLERGIES: HYDROXYZINE, PROCHLORPERAZINE, PROMETHAZINE, OXYCODONE, PERRY INHIBITORS, LISINOPRIL, METFORMIN, PARSLEY, TETRACYCLINE, GABAPENTIN. PAST MEDICAL HISTORY: As mentioned above. PAST SURGICAL HISTORY: Mechanical mitral valve replacement, left knee arthroplasty, right knee arthroplasty, cardiac catheterization, colonoscopy, EGD, EGD with biopsy, electrical cardioversion, ligation of the oviducts, appendectomy, cholecystectomy, total abdominal hysterectomy with removal of tubes. MEDICATIONS: The patient is on albuterol 2 puffs inhalation q. 4 hours p.r.n., vitamin C 500 mg p.o. daily, vitamin D 1000 units p.o. a.m., citalopram 10 mg p.o. daily, folic acid 1 mg p.o. daily, Lasix 80 mg on Mondays, Wednesdays, Fridays, and Saturdays and 40 mg on Sundays, Tuesdays, and , levothyroxine 100 mcg p.o. a.m., metoprolol tartrate 12.5 mg p.o. b.i.d., Nitrostat 0.4 mg sublingual p.r.n., omeprazole 20 mg p.o. daily p.m., ropinirole 2 mg p.o. t.i.d., lovastatin 20 mg p.o. at bedtime, spironolactone 12.5 mg p.o. daily, Coumadin 7.5 mg every Tuesdays and Fridays and 5 mg on all other days. FAMILY HISTORY: Significant for brother has allergies, maternal grandfather had leukemia, mother has eczema, uncle has heart disorder. SOCIAL HISTORY: Currently living single. No smoking. Alcohol occasionally. No drug use. REVIEW OF SYSTEMS: As per HPI. Rest of the review of systems is negative. PHYSICAL EXAMINATION: GENERAL: The patient is of moderate build, not in acute distress. VITAL SIGNS: Temperature 37.3, pulse 73, respiratory rate 25, blood pressure is 140/70, oxygen 85% on room air, and 97% on 2 liters. HEENT: Pupils equal, round, and reactive to light. Oral mucosa moist. LUNGS: No JVD. No neck masses. CARDIOVASCULAR: S1 and S2 heard, regular rate and rhythm. No murmur, no gallop. RESPIRATORY SYSTEM: Normal AP diameter. No accessory muscle use. Bibasilar crackles heard. No wheezing. ABDOMEN: Soft. Bowel sounds are present, nontender, no distention. CENTRAL NERVOUS SYSTEM: Cranial nerves II-XII grossly intact, nonfocal. EXTREMITIES: Bilateral lower extremity gross edema present. Left lower extremity is slightly erythematous. LABORATORY DATA: WBC 8.3, hemoglobin 10, hematocrit 31.9, platelets 159. PT 48.4, INR 5, APTT 51.2. Sodium 134, potassium 3.3, chloride 100, bicarbonate 26, BUN 19, creatinine 1.37, glucose 121, calcium 9.9, magnesium 2, total bilirubin 1.1, AST 26, ALT 15, alkaline phosphatase 72. Troponin 1 high sensitivity 10.5. BNP 99. Urinalysis, +1 leukocyte esterase. SARS-CoV-2 rapid test negative. IMAGING DATA: Chest x-ray: Cardiomegaly with pulmonary edema, [id number] right pleural effusion with mild bibasilar consolidation. CTA of the chest, no PE, cardiomegaly with right pleural effusion. Findings may relate to sequelae of heart failure. Right lower lobe and middle lobe airspace disease, which may be due to part of compressive atelectasis. Superimposed infection cannot be excluded. EKG: Atrial fibrillation at a rate of 83, left axis deviation, nonspecific ST-T abnormalities. ASSESSMENT AND PLAN: This is a 65-year-old female who presents with ongoing cough and shortness of breath. 1. Shortness of breath, cough for last two months, last night became short of breath: Chest x-ray, possible pulmonary edema. CTA chest, no pulmonary embolus. Right pleural effusion. Probably acute on chronic diastolic congestive heart failure. The patient is on Lasix alternating 80 with [address] on IV Lasix 40 b.i.d. and continue her home spironolactone. Follow echocardiogram. Monitor the daily weights, I's and O's. Monitor in the tele floor.Cardiology consult. 2. Lower extremity edema: Will also rule out deep venous thrombosis, though her INR is supratherapeutic. 3. Possible urinary tract infection, on Rocephin: Follow the cultures. 4. History of mitral valve replacement, mechanical: INR is supratherapeutic at 5.5. Holding the Coumadin. Follow the PT/INR. 5. Hypokalemia: Will replace. 6. Chronic kidney disease stage III: Creatinine of 1.3, will follow the labs while the patient is on IV diuretics. 7. Type 2 diabetes: Not on any medications. Place on insulin sliding scale. Follow HbA1c levels. 8. Hypothyroidism: Synthroid. Follow thyroid profile. 9. Permanent atrial fibrillation, tachybrady syndrome: Seems recently had loop recorder for syncope? On Coumadin and metoprolol, rate is under control. 10. Restless legs syndrome: On ropinirole. 11. History of coronary artery disease: On beta marjorie and statin. 12. Gastroesophageal reflux disease: On omeprazole. 13. Hyperlipidemia: On statin. 14. Hypertension: On metoprolol and diuretics. Will monitor the blood pressure. 15. History of transient ischemic attack: On Coumadin and statin. 16. General anxiety disorder: On citalopram. 17. Deep venous thrombosis prophylaxis: On Coumadin. INR supratherapeutic. DISPOSITION: Closely monitor in tele floor. Level 1 full code. PT/OT prior to discharge. Social service to help with discharge planning. Job ID: [id number] [id number]
--- NOTE | 2021-07-18 10:17 | Ultrasound Report ---
BILATERAL LOWER EXTREMITY VENOUS DOPPLER HISTORY: Acute pain and swelling of the lower extremities bilateral edema. dvt? COMPARISON STUDY: None. FINDINGS: There is normal compressibility, flow, and augmentation within the bilateral lower extremit y deep venous systems. IMPRESSION: No DVT within the right or left lower extremity. ACT 112: Negative or not required by law. Electronically signed by: Gasper Scott M.D. 07/18/2021 10:15 AM
[2021-07-18] MEDS: cefTRIAXone SODIUM 1,000 MG in DEXTROSE 5% 50 ML IV SCH (10:43)
[2021-07-18] MEDS: FUROSEMIDE 40 MG/4 ML VIAL IV SCH ×2 (10:43→21:26)
[2021-07-18] MEDS: METOPROLOL TARTRATE 25 MG TAB PO SCH ×2 (10:43→21:14)
[2021-07-18] MEDS: SPIRONOLACTONE 12.5 MG TAB PO SCH (10:49)
[2021-07-18] MEDS: CHOLECALCIFEROL 1,000 UNITS 25 MCG TAB PO SCH (10:49)
[2021-07-18] MEDS: ASCORBIC ACID 500 MG TAB PO SCH (10:50)
[2021-07-18] MEDS: LEVOTHYROXINE SODIUM 100 MCG TABLET PO SCH (10:51)
[2021-07-18] MEDS: FOLIC ACID 1 MG TAB PO SCH (10:51)
[2021-07-18] MEDS: CITALOPRAM 20 MG TAB PO SCH (10:52)
[2021-07-18] MEDS: rOPINIRole HCL 2 MG TABLET PO SCH ×3 (10:53→21:16)
[2021-07-18] MEDS ORDERED: POTASSIUM CHLORIDE CRTAB 20 MEQ TABCR PO STA (12:55)
--- NOTE | 2021-07-18 12:59 | Hospitalist Progress Note ---
Date of Service July 18, 2021 Assessment & Plan Admission and Anticipated Discharge Date Admission Date: July 18, 2021 Subjective speech consulted. thanks Results & Data Results & Data ([facility]) Vital Signs (Past 12 Hours) Vital Signs Temp Pulse Pulse Resp BP BP Pulse Ox 07/18/21 09:06 36.9 C 96 H 24 138/67 95 07/18/21 09:05 91 H 22 138/67 95 07/18/21 09:00 107 H 19 138/67 97 07/18/21 08:59 89 24 07/18/21 06:30 73 25 H 97 07/18/21 06:00 89 22 97 07/18/21 05:30 90 26 H 100 07/18/21 05:29 84 L 07/18/21 05:00 118 H 20 140/70 94 07/18/21 04:30 96 H 23 140/68 100 07/18/21 04:21 100 07/18/21 04:10 98 H 33 H 99 07/18/21 03:56 98 07/18/21 03:51 37.3 C 92 H 27 H 141/70 H 98 Pulse Ox 07/18/21 09:06 07/18/21 09:05 96 07/18/21 09:00 07/18/21 08:59 07/18/21 06:30 07/18/21 06:00 07/18/21 05:30 07/18/21 05:29 07/18/21 05:00 07/18/21 04:30 07/18/21 04:21 07/18/21 04:10 07/18/21 03:56 07/18/21 03:51
--- NOTE | 2021-07-18 13:13 | Cardiology Consultation ---
Date of Consultation July 18, 2021 Assessment & Plan (1) Chronic heart failure with preserved ejection fraction (HFpEF): Would speculate her LE edema is related to diastolic dysfunction and severe tricuspid regurgitation. Agree with Furosemide 40 mg IV BID. Home dose of furosemide is 80 mg alternating with 40 mg. Potassium replacement ordered by the admitting team this am. With regards to her anticoagulation. Goal INR for her mechanical MV prosthesis is 3-3.5. INR =5 and therefore coumadin on hold. Remain in hospital (awaiting telemetry bed). I do not think that repeating another echo at this time would change her treatment. History of Present Illness Attending Physician: Liam Bell MD History of Present Illness Abdi Bowling is a 65 year old female seen in cardiology consultation per the request of Dr Pollard for the evaluation of congestive heart failure. Patient's primary train control technician is Dr Molina of our practice. Patient describes severe months of progressive cough. Recent worsening LE edema. Her diuretic dose had been double for several days as an outpatient and then placed back on her usual dose with worsening symptoms in the interim. Problem List: 1. 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 2. Chronic atrial fibrillation with borderline tachy Chris syndrome 3. Past embolic myocardial infarction and TIA, on chronic anticoagulation plus antiplatelet therapy with clopidogrel. 4. Type 2 diabetes mellitus. 5. Hyperlipidemia. 6. Chronic renal insufficiency. 7. Acute COVID infection 10/14/2020 treated with monoclonal antibodies as an outpatient 8. Fall episodes prompting Loop recorder and subsequent admission 03/2021 with no arrhythmia abnormalities that would explain symptoms Allergies Allergy/AdvReac Type Severity Reaction Status Date / Time hydroxyzine Allergy Severe DYSTONIA Verified 07/18/21 07:32 prochlorperazine Allergy Severe NUCHAL Verified 07/18/21 07:32 DYSTONIA promethazine Allergy Severe NUCHAL Verified 07/18/21 07:32 DYSTONIA oxycodone Allergy Intermediate Numbness Verified 07/18/21 07:32 PERRY Inhibitors AdvReac Intermediate COUGH Verified 07/18/21 07:32 lisinopril AdvReac Intermediate Cough Verified 07/18/21 07:32 metformin AdvReac Intermediate DIARRHEA Verified 07/18/21 07:32 parsley AdvReac Intermediate AGITATION Verified 07/18/21 07:32 tetracycline AdvReac Intermediate DYSPEPSIA Verified 07/18/21 07:32 gabapentin AdvReac Drowsy Verified 07/18/21 07:32 NAUSEA MEDICINES Allergy Unknown SEE NOTE Uncoded 07/18/21 07:32 BELOW Home Medications Medication Instructions Recorded Confirmed Type cholecalciferol (vitamin D3) 25 1,000 unit PO QAM 12/05/17 07/18/21 History mcg (1,000 unit) capsule (Vitamin D3) nitroglycerin 0.4 mg sublingual 0.4 mg SUBLINGUAL DIRECTED PRN 12/05/17 07/18/21 History tablet (Nitrostat) omeprazole 20 mg capsule,delayed 20 mg PO PM 12/05/17 07/18/21 History release furosemide 40 mg tablet 80 mg PO MOWEFRSA 05/18/18 07/18/21 History levothyroxine 100 mcg tablet 100 mcg PO DAILYBB 05/18/18 07/18/21 History folic acid 1 mg tablet 1 mg PO QAM #30 tab 05/21/18 07/18/21 Rx ropinirole 2 mg tablet 2 mg PO TID 10/08/18 07/18/21 History acetaminophen 500 mg tablet 500 mg PO Q6H PRN 12/31/19 07/18/21 History (Tylenol Extra Strength) magnesium hydroxide 400 mg/5 mL 5 ml PO DAILY PRN 12/31/19 07/18/21 History oral suspension (Milk of Magnesia) spironolactone 25 mg tablet 12.5 mg PO DAILY 12/31/19 07/18/21 History furosemide 40 mg tablet 40 mg PO SUTUTH 10/15/20 07/18/21 History rosuvastatin 20 mg tablet 20 mg PO HS 10/15/20 07/18/21 History ascorbic acid (vitamin C) 500 mg 500 mg PO DAILY 03/31/21 07/18/21 History tablet (Vitamin C) metoprolol tartrate 25 mg tablet 12.5 mg PO BID #30 tab 04/09/21 07/18/21 Rx albuterol sulfate 90 mcg/actuation 2 puff INHALATION Q4H PRN 07/18/21 07/18/21 History aerosol inhaler benzonatate 100 mg capsule 100 mg PO TID 07/18/21 07/18/21 History bisacodyl 10 mg rectal suppository 10 mg SC DAILY 07/18/21 07/18/21 History citalopram 10 mg tablet 10 mg PO DAILY 07/18/21 07/18/21 History magnesium glycinate 100 mg tablet 0 mg PO DAILY 07/18/21 07/18/21 History metoclopramide HCl 10 mg tablet 10 mg PO DAILY PRN 07/18/21 07/18/21 History sennosides 17.2 mg tablet 17.2 mg PO HS PRN 07/18/21 07/18/21 History tramadol 50 mg tablet 50 mg PO TID PRN 07/18/21 07/18/21 History warfarin 5 mg tablet 5 mg PO DIRECTED 07/18/21 07/18/21 History Patient History Medical History A-fib Anemia chronic; baseline hgb 9-10 range per chart review Anxiety CKD (chronic kidney disease), stage III Diabetes diet controlled GERD (gastroesophageal reflux disease) controlled History of blood transfusion autologous s/p MVR (1993), 09/2018 (post-op) HTN (hypertension) Hx of myocardial infarction 2000, medical management Hyperlipidemia Hypothyroidism Migraines 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 migraine vs. stress related)-- plavix since discontinued Surgical History H/O radioactive iodine thyroid ablation H/O: hysterectomy History of cardiac cath 2000= NO STENTS History of colonoscopy History of tonsillectomy and adenoidectomy History of total left knee replacement Hx of appendectomy Hx of cholecystectomy Hx of mitral valve replacement 1993 (rheumatic valvular disease) Hx of tubal ligation Family History Uncle , of [place] in his 40s Coronary heart disease Social History Smoking Status: Never smoker Second Hand Exposure: No; Do You Dip or Chew Tobacco: No; Tobacco Cessation Education Requested by Patient: No Hx Alcohol Use: Yes Alcohol type: wine Hx Substance Use: No Preferred Language: Iranian Communication Ability: Effective Power Station Operator Required: No Beliefs That Will Affect Care: None marital status: Single Current Living Situation: Alone Current Living Situation Comment: takes care of mother current occupational status: disabled How many Children do You have: 0 Other Information That Helps Us Care for You: No Feels Safe at Home: Yes Safety Concerns: Feels Safe At This Time Assistive Devices: Cane and Walker Assistive Devices Comment: walker at night, cane during the day Review of Systems Review of Systems: All systems reviewed & are unremarkable except as noted in HPI & below Physical Exam Constitutional: no acute distress Respiratory: Mildly reduced BS at the bases Cardiovascular: Extremities: + edema (1-2+ LE edema bilatterally ) irregular rhythm, crisp prosthetic heart sounds noted. Gastrointestinal (Abdomen): normal bowel sounds, soft, nontender, no hepatosplenomegaly Neurologic: PERRL, EOMI, accommodation nl, no face palsy, no dysarthria Results & Data ([facility]) Vital Signs (Past 12 Hours) Vital Signs Temp Pulse Pulse Resp BP BP Pulse Ox 07/18/21 09:06 36.9 C 96 H 24 138/67 95 07/18/21 09:05 91 H 22 138/67 95 07/18/21 09:00 107 H 19 138/67 97 07/18/21 08:59 89 24 07/18/21 06:30 73 25 H 97 07/18/21 06:00 89 22 97 07/18/21 05:30 90 26 H 100 07/18/21 05:29 84 L 07/18/21 05:00 118 H 20 140/70 94 07/18/21 04:30 96 H 23 140/68 100 07/18/21 04:21 100 07/18/21 04:10 98 H 33 H 99 07/18/21 03:56 98 07/18/21 03:51 37.3 C 92 H 27 H 141/70 H 98 Pulse Ox 07/18/21 09:06 07/18/21 09:05 96 07/18/21 09:00 07/18/21 08:59 07/18/21 06:30 07/18/21 06:00 07/18/21 05:30 07/18/21 05:29 07/18/21 05:00 07/18/21 04:30 07/18/21 04:21 07/18/21 04:10 07/18/21 03:56 07/18/21 03:51 Laboratory Results Cardiac Enzymes 07/18/21 07/18/21 07/18/21 Range/Units 03:46 03:46 09:38 AST 26 (13-39) U/L Troponin I High Sens 10.5 13.1 (0-14) pg/ml B-Natriuretic Peptide 99 (0-100) pg/ml Coagulation 07/18/21 07/18/21 Range/Units 03:46 03:46 PT 48.4 H (9.0-12.0) Seconds APTT 51.2 H* (21.0-31.0) Seconds B-Natriuretic Peptide 99 (0-100) pg/ml CBC 07/18/21 Range/Units 03:46 WBC 8.36 (4.8-10.8) K/uL RBC 3.87 L (4.2-5.4) M/uL Hgb 10.0 L (12.0-16.0) g/dL Hct 31.9 L (37-47) % Plt Count 159 (130-400) K/uL Neut # (Auto) 6.57 H (1.4-6.5) K/uL Lymph # (Auto) 0.81 L (1.2-3.4) K/uL [place] # (Auto) 0.73 H (0.11-0.59) K/uL Eos # (Auto) 0.21 (0-0.5) K/uL Baso # (Auto) 0.01 (0-0.2) K/uL Comprehensive Metabolic Panel 07/18/21 Range/Units 03:46 Sodium 134 L (136-145) mmol/L Potassium 3.3 L (3.5-5.1) mmol/L Chloride 100 (98-107) mmol/L Carbon Dioxide 26 (21-32) mmol/L BUN 19 (6-23) mg/dl Creatinine 1.37 H (0.6-1.2) mg/dl Glucose 121 H (70-99(Fasting)) mg/dl Calcium 9.9 (8.5-10.1) mg/dl AST 26 (13-39) U/L ALT 15 (7-52) U/L Alkaline Phosphatase 72 (34-104) U/L Total Protein 6.9 (6.0-8.3) gm/dl Albumin 4.0 (3.4-5.0) gm/dl Intake and Output 07/17/21 07/18/21 07/18/21 22:59 06:59 14:59 Intake Total 60 / 60 Output Total 900 / 900 Balance -840 / -840 Intake: IV 60 / 60 cefTRIAXone SODIUM 1,000 mg In 60 / 60 Dextrose 5% 50 ml @ 100 mls/hr IV Q24H [facility] Rx#:[id number] Output: Urine 900 / 900 Other: Weight 63.7 kg 63.7 kg Weight Measurement [facility] Patient Weight 07/19/21 06:59 Weight 63.7 kg Diagnostic Findings EKG performed 07/18/21: AF at 83 bpm, LAFB, No significant repolarization changes. AF is a chronic finding. Echo 01/13/21: LVEF 55-60% Severe biatrial enlargement Severe TR normal MV prosthetic function CTA chest: 1. No evidence for pulmonary embolus. 2. Small right pleural effusion. 3. Moderate cardiomegaly, unchanged. 4. Right middle lobe and right lower lobe airspace opacities. This favors atelectasis. A superimposed pneumonia could also have a similar appearance.
[2021-07-18] MEDS: ACETAMINOPHEN 325 MG TAB PO PRN (15:49)
--- NOTE | 2021-07-18 19:10 | Communication Note ---
Date of Service: July 18, 2021 65-year-old female with significant complicated past medical history as mentioned in H&P was admitted with shortness of breath cough with productive of phlegm. She also has had leg edema proceeded with it. Likely has acute on chronic heart failure and may have associated pneumonia. She has been evaluated by scuba diving teacher has been feeling a little better since admission. We will add doxycycline on top of ceftriaxone. Full progress note will be done by incoming hospitalist tomorrow. Dr Dinesh Bell
[2021-07-18] MEDS: DOXYCYCLINE HYCLATE 100 MG in DEXTROSE 5% 100 ML IV SCH (21:10)
[2021-07-18] MEDS: PANTOprazole 40 MG TAB PO SCH (21:15)
[2021-07-18] MEDS: ROSUVASTATIN CALCIUM 20 MG TAB PO SCH (21:16)
--- NOTE | 2021-07-18 21:56 | Emergency Department Note ---
History of Present Illness General Chief complaint: Shortness of Breath/Dyspnea Time Seen by Provider: 07/18/21 03:57 History of Present Illness Maximum Pain Intensity: 8 This is a 65-year-old female presenting to the emergency department for evaluation of shortness of breath and cough symptoms. She has had the cough for the last 3 to 4 months and has followed with her [facility] team for evaluation of this. She most recently saw allergy/immunology and chest x-ray was performed, which she states may have shown pneumonia or fluid in the right lower lobe of her lungs. She did have outpatient CT scan ordered but has not yet been performed. The patient states that at home tonight she had significant difficulty breathing and her pulse oximeter at home was 85 to 86%. She elected to contact EMS and on initial arrival to the ER she is at 97% on room air. The patient does have a history of A. fib on Coumadin and metoprolol. She has not had fevers or chills. She states that after calling the ambulance, but before their arrival, she did have chest pain. She has had significant increased anxiety and stress factors at home with a family member recently passing away. She rates her current discomfort an /10. Home Medications Medication Instructions Recorded Confirmed Type cholecalciferol (vitamin D3) 25 1,000 unit PO QAM 12/05/17 07/18/21 History mcg (1,000 unit) capsule (Vitamin D3) nitroglycerin 0.4 mg sublingual 0.4 mg SUBLINGUAL DIRECTED PRN 12/05/17 07/18/21 History tablet (Nitrostat) omeprazole 20 mg capsule,delayed 20 mg PO PM 12/05/17 07/18/21 History release furosemide 40 mg tablet 80 mg PO MOWEFRSA 05/18/18 07/18/21 History levothyroxine 100 mcg tablet 100 mcg PO DAILYBB 05/18/18 07/18/21 History folic acid 1 mg tablet 1 mg PO QAM #30 tab 05/21/18 07/18/21 Rx ropinirole 2 mg tablet 2 mg PO TID 10/08/18 07/18/21 History acetaminophen 500 mg tablet 500 mg PO Q6H PRN 12/31/19 07/18/21 History (Tylenol Extra Strength) magnesium hydroxide 400 mg/5 mL 5 ml PO DAILY PRN 12/31/19 07/18/21 History oral suspension (Milk of Magnesia) spironolactone 25 mg tablet 12.5 mg PO DAILY 12/31/19 07/18/21 History furosemide 40 mg tablet 40 mg PO SUTUTH 10/15/20 07/18/21 History rosuvastatin 20 mg tablet 20 mg PO HS 10/15/20 07/18/21 History ascorbic acid (vitamin C) 500 mg 500 mg PO DAILY 03/31/21 07/18/21 History tablet (Vitamin C) metoprolol tartrate 25 mg tablet 12.5 mg PO BID #30 tab 04/09/21 07/18/21 Rx albuterol sulfate 90 mcg/actuation 2 puff INHALATION Q4H PRN 07/18/21 07/18/21 History aerosol inhaler benzonatate 100 mg capsule 100 mg PO TID 07/18/21 07/18/21 History bisacodyl 10 mg rectal suppository 10 mg OH DAILY 07/18/21 07/18/21 History citalopram 10 mg tablet 10 mg PO DAILY 07/18/21 07/18/21 History magnesium glycinate 100 mg tablet 0 mg PO DAILY 07/18/21 07/18/21 History metoclopramide HCl 10 mg tablet 10 mg PO DAILY PRN 07/18/21 07/18/21 History sennosides 17.2 mg tablet 17.2 mg PO HS PRN 07/18/21 07/18/21 History tramadol 50 mg tablet 50 mg PO TID PRN 07/18/21 07/18/21 History warfarin 5 mg tablet 5 mg PO DIRECTED 07/18/21 07/18/21 History Allergies Allergy/AdvReac Type Severity Reaction Status Date / Time hydroxyzine Allergy Severe DYSTONIA Verified 07/18/21 07:32 prochlorperazine Allergy Severe NUCHAL Verified 07/18/21 07:32 DYSTONIA promethazine Allergy Severe NUCHAL Verified 07/18/21 07:32 DYSTONIA oxycodone Allergy Intermediate Numbness Verified 07/18/21 07:32 PERRY Inhibitors AdvReac Intermediate COUGH Verified 07/18/21 07:32 lisinopril AdvReac Intermediate Cough Verified 07/18/21 07:32 metformin AdvReac Intermediate DIARRHEA Verified 07/18/21 07:32 parsley AdvReac Intermediate AGITATION Verified 07/18/21 07:32 tetracycline AdvReac Intermediate DYSPEPSIA Verified 07/18/21 07:32 gabapentin AdvReac Drowsy Verified 07/18/21 07:32 NAUSEA MEDICINES Allergy Unknown SEE NOTE Uncoded 07/18/21 07:32 BELOW Past Med/Surg History Medical History A-fib Anemia chronic; baseline hgb 9-10 range per chart review Anxiety CKD (chronic kidney disease), stage III Diabetes diet controlled GERD (gastroesophageal reflux disease) controlled History of blood transfusion autologous s/p MVR (1993), 09/2018 (post-op) HTN (hypertension) Hx of myocardial infarction 2000, medical management Hyperlipidemia Hypothyroidism Migraines 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 migraine vs. stress related)-- plavix since discontinued Surgical History H/O radioactive iodine thyroid ablation H/O: hysterectomy History of cardiac cath 2000= NO STENTS History of colonoscopy History of tonsillectomy and adenoidectomy History of total left knee replacement Hx of appendectomy Hx of cholecystectomy Hx of mitral valve replacement 1993 (rheumatic valvular disease) Hx of tubal ligation Family History Uncle , of [place] in his 40s Coronary heart disease Social History Smoking Status: Never smoker Second Hand Exposure: No; Do You Dip or Chew Tobacco: No; Tobacco Cessation Education Requested by Patient: No Hx Alcohol Use: Yes Alcohol type: wine Hx Substance Use: No Preferred Language: Malay Communication Ability: Effective Wedding Designer Required: No Beliefs That Will Affect Care: None marital status: Single Current Living Situation: Alone Current Living Situation Comment: takes care of mother current occupational status: disabled How many Children do You have: 0 Other Information That Helps Us Care for You: No Feels Safe at Home: Yes Safety Concerns: Feels Safe At This Time Assistive Devices: Cane and Walker Assistive Devices Comment: walker at night, cane during the day Review of Systems A total of 10 systems reviewed and were otherwise negative Physical Exam Vital Signs Vital Signs - 24 hr 07/18/21 03:51 07/18/21 03:56 07/18/21 04:10 Temperature 37.3 C Temperature Source Oral Pulse Rate 92 H 98 H Pulse Rate from SpO2 Sensor 98 H Respiratory Rate 27 H 33 H Respiratory Effort / Characteristics Short of Breath SOB on Exertion Short of Breath SOB on Exertion Respiratory Depth Normal Respiratory Pattern Regular Blood Pressure 141/70 H Blood Pressure Mean 93 Pulse Oximetry 98 98 99 Oxygen Delivery Method Room Air Room Air Oxygen Flow Rate Sepsis Recent Fever Within 48 Hours No Sepsis New/Unexplained Change in Mental Status No Sepsis Action Taken by Nursing No Action Required Oxygen Flow Rate - Titration Pulse Oximetry Post Tiitration 07/18/21 04:21 07/18/21 04:30 07/18/21 05:00 Temperature Temperature Source Pulse Rate 96 H 118 H Pulse Rate from SpO2 Sensor 89 100 H Respiratory Rate 23 20 Respiratory Effort / Characteristics Respiratory Depth Respiratory Pattern Blood Pressure 140/68 140/70 Blood Pressure Mean 92 93 Pulse Oximetry 100 100 94 Oxygen Delivery Method Nebulizer Oxygen Flow Rate Sepsis Recent Fever Within 48 Hours Sepsis New/Unexplained Change in Mental Status Sepsis Action Taken by Nursing Oxygen Flow Rate - Titration Pulse Oximetry Post Tiitration 07/18/21 05:29 07/18/21 05:30 07/18/21 06:00 Temperature Temperature Source Pulse Rate 90 89 Pulse Rate from SpO2 Sensor 94 H 90 Respiratory Rate 26 H 22 Respiratory Effort / Characteristics Respiratory Depth Respiratory Pattern Blood Pressure Blood Pressure Mean Pulse Oximetry 84 L 100 97 Oxygen Delivery Method Room Air Nasal Cannula Oxygen Flow Rate 3 3 Sepsis Recent Fever Within 48 Hours Sepsis New/Unexplained Change in Mental Status Sepsis Action Taken by Nursing Oxygen Flow Rate - Titration 3 Pulse Oximetry Post Tiitration 96 07/18/21 06:30 Temperature Temperature Source Pulse Rate 73 Pulse Rate from SpO2 Sensor 81 Respiratory Rate 25 H Respiratory Effort / Characteristics Respiratory Depth Respiratory Pattern Blood Pressure Blood Pressure Mean Pulse Oximetry 97 Oxygen Delivery Method Oxygen Flow Rate 3 Sepsis Recent Fever Within 48 Hours Sepsis New/Unexplained Change in Mental Status Sepsis Action Taken by Nursing Oxygen Flow Rate - Titration Pulse Oximetry Post Tiitration VITALS: Vitals are noted on the nurse's note and reviewed by myself. Vital signs stable. GENERAL: Well-developed, well-nourished, white female, who is in no acute distress and resting comfortably. Patient is cooperative with the examination. HEAD: Normocephalic atraumatic. NECK: Supple without nuchal rigidity. No lymphadenopathy. No thyromegaly. Cervical spine is nontender. HEART: Irregularly irregular LUNGS: Bibasilar crackles identified worse on the right than left ABDOMEN: Positive normal bowel sounds x 4. Soft, nontender, without masses or organomegaly. No guarding or rebound tenderness. MUSCULOSKELETAL: No muscle atrophy, erythema, or edema noted. Full range of motion in all extremities. NEURO: Patient was alert and oriented to person place and time. CN II through XII grossly intact. Course Administered Medications Acetaminophen (Acetaminophen 325 Mg Tab) 650 mg PO Q4H PRN PRN Reason: Pain or Fever Stop: 08/17/21 09:00 Last Admin: 07/18/21 15:49 Dose: 650 mg Documented by: [id number] Ascorbic Acid (Ascorbic Acid 500 Mg Tab) 500 mg PO DAILY [facility] Stop: 08/17/21 09:44 Last Admin: 07/18/21 10:50 Dose: 500 mg Documented by: [id number] Citalopram Hydrobromide (Citalopram 20 Mg Tab) 10 mg PO DAILY [facility] Stop: 08/17/21 09:59 Last Admin: 07/18/21 10:52 Dose: 10 mg Documented by: [id number] Folic Acid (Folic Acid 1 Mg Tab) 1 mg PO QAM [facility] Stop: 08/17/21 09:44 Last Admin: 07/18/21 10:51 Dose: 1 mg Documented by: [id number] Furosemide (Furosemide 40 Mg/4 Ml Vial) 40 mg IV BID [facility] Stop: 08/17/21 09:59 Last Admin: 07/18/21 21:26 Dose: 40 mg Documented by: [id number] Admin: 07/18/21 10:43 Dose: 40 mg Documented by: [id number] Ceftriaxone Sodium 1,000 mg/ (Dextrose) 60 mls @ 100 mls/hr IV Q24H [facility]; Protocol Stop: 07/28/21 09:59 Last Infusion: 07/18/21 11:25 Dose: 0 mls/hr Documented by: [id number] Admin: 07/18/21 10:43 Dose: 100 mls/hr Documented by: [id number] Doxycycline Hyclate 100 mg/ (Dextrose) 110 mls @ 50 mls/hr IV BID PRISCILA Stop: 07/25/21 19:59 Last Infusion: 07/18/21 21:24 Dose: 0 mls/hr Documented by: [id number] Admin: 07/18/21 21:10 Dose: 50 mls/hr Documented by: [id number] Levothyroxine Sodium (Levothyroxine Sodium 100 Mcg Tablet) 100 mcg PO DAILYBB PRISCILA Stop: 08/17/21 09:44 Last Admin: 07/18/21 10:51 Dose: 100 mcg Documented by: [id number] Metoprolol Tartrate (Metoprolol Tartrate 25 Mg Tab) 12.5 mg PO BID PRISCILA Stop: 08/17/21 09:44 Last Admin: 07/18/21 21:14 Dose: 12.5 mg Documented by: [id number] Admin: 07/18/21 10:43 Dose: 12.5 mg Documented by: [id number] Pantoprazole Sodium (Pantoprazole 40 Mg Tab) 40 mg PO PM PRISCILA Stop: 08/17/21 20:59 Last Admin: 07/18/21 21:15 Dose: 40 mg Documented by: [id number] Ropinirole HCl (Ropinirole Hcl 2 Mg Tablet) 2 mg PO TID PRISCILA Stop: 08/17/21 09:59 Last Admin: 07/18/21 21:16 Dose: 2 mg Documented by: [id number] Admin: 07/18/21 14:08 Dose: 2 mg Documented by: [id number] Admin: 07/18/21 10:53 Dose: 2 mg Documented by: [id number] Rosuvastatin Calcium (Rosuvastatin Calcium 20 Mg Tab) 20 mg PO HS PRISCILA Stop: 08/17/21 20:59 Last Admin: 07/18/21 21:16 Dose: 20 mg Documented by: [id number] Spironolactone (Spironolactone 12.5 Mg Tab) 12.5 mg PO DAILY PRISCILA Stop: 08/17/21 09:44 Last Admin: 07/18/21 10:49 Dose: 12.5 mg Documented by: [id number] Vitamin D (Cholecalciferol 1,000 Units 25 Mcg Tab) 1,000 units PO QAM PRISCILA Stop: 08/17/21 09:44 Last Admin: 07/18/21 10:49 Dose: 1,000 units Documented by: [id number] Discontinued Medications Albuterol (Albut/Ipratrop 3mg/0.5mg Neb 3 Ml Vial) 3 ml NEB NOW STA; Protocol Stop: 07/18/21 04:11 Last Admin: 07/18/21 04:21 Dose: 3 ml Documented by: [id number] Ioversol (Optiray 320 125ml) 120 ml IV ONCE ONE Stop: 07/18/21 05:17 Last Admin: 07/18/21 05:17 Dose: 120 ml Documented by: [id number] Potassium Chloride (Potassium Chloride Crtab 20 Meq Tabcr) 40 meq PO NOW STA Stop: 07/18/21 12:56 Last Admin: 07/18/21 13:15 Dose: 40 meq Documented by: [id number] Medical Decision Making Differential Diagnosis Differential diagnosis includes, but is not limited to: Myocardial infarction, dysrhythmia, pericarditis, pneumothorax, aortic aneurysm/dissection, DVT/PE, anxiety, GERD, PUD, electrolyte imbalance, thyroid disorder, pneumonia, bronchitis, pancreatitis, and others Laboratory Data Result diagrams: 07/18/21 03:46 07/18/21 03:46 Lab Results 07/18/21 07/18/21 07/18/21 Range/Units 03:46 03:46 03:46 WBC 8.36 (4.8-10.8) K/uL RBC 3.87 L (4.2-5.4) M/uL Hgb 10.0 L (12.0-16.0) g/dL Hct 31.9 L (37-47) % MCV 82.4 (80-100) fL MCH 25.8 (25-34) pg MCHC 31.3 L (32-36) g/dL RDW Std Deviation 47.2 H (36.4-46.3) fL RDW Coeff of Courtney 15.8 H (11.5-14.5) % Plt Count 159 (130-400) K/uL MPV 11.0 H (7.4-10.4) fL Immature Gran % (Auto) 0.4 % Neut % (Auto) 78.6 % Lymph % (Auto) 9.7 % Boundary % (Auto) 8.7 % Eos % (Auto) 2.5 % Baso % (Auto) 0.1 % Neut # (Auto) 6.57 H (1.4-6.5) K/uL Lymph # (Auto) 0.81 L (1.2-3.4) K/uL Boundary # (Auto) 0.73 H (0.11-0.59) K/uL Eos # (Auto) 0.21 (0-0.5) K/uL Baso # (Auto) 0.01 (0-0.2) K/uL Immature Gran # (Auto) 0.03 H (0.00-0.02) K/uL PT (9.0-12.0) Seconds INR (0.9-1.1) APTT (21.0-31.0) Seconds PTT Ratio Sodium 134 L (136-145) mmol/L Potassium 3.3 L (3.5-5.1) mmol/L Chloride 100 (98-107) mmol/L Carbon Dioxide 26 (21-32) mmol/L Anion Gap 8 (3-11) BUN 19 (6-23) mg/dl Creatinine 1.37 H (0.6-1.2) mg/dl Est Cr Clr Drug Dosing 33.2 ml/min Est GFR ( Amer) 46.1 ml/min Est GFR (Non-Af Amer) 39.8 ml/min BUN/Creatinine Ratio 13.9 (10-20) Glucose 121 H (70-99(Fasting)) mg/dl Calcium 9.9 (8.5-10.1) mg/dl Magnesium 2.0 (1.7-2.4) mg/dl Total Bilirubin 1.1 H (0.2-1.0) mg/dl AST 26 (13-39) U/L ALT 15 (7-52) U/L Alkaline Phosphatase 72 (34-104) U/L Troponin I High Sens 10.5 (0-14) pg/ml B-Natriuretic Peptide 99 (0-100) pg/ml Total Protein 6.9 (6.0-8.3) gm/dl Albumin 4.0 (3.4-5.0) gm/dl Globulin 2.9 (2.5-4.0) gm/dl Albumin/Globulin Ratio 1.4 (0.9-2) Urine Color Urine Appearance (Clear) Urine pH (4.5-7.5) Ur Specific [place] (1.000-1.030) Urine Protein (Negative) Urine Glucose (UA) (Negative) Urine Ketones (Negative) Urine Blood (Negative) Urine Nitrite (Negative) Urine Bilirubin (Negative) Urine Urobilinogen (Negative) Ur Leukocyte Esterase (Negative) Urine WBC (Auto) (0-5) /hpf Urine RBC (Auto) (0-4) /hpf U Hyaline Cast (Auto) (0-5) /lpf U Epithel Cells (Auto) (0-5) /lpf Urine Bacteria (Auto) (Negative) SARS-CoV-2, RNA, NAAT (NEGATIVE) 07/18/21 07/18/21 07/18/21 Range/Units 03:46 04:21 04:30 WBC (4.8-10.8) K/uL RBC (4.2-5.4) M/uL Hgb (12.0-16.0) g/dL Hct (37-47) % MCV (80-100) fL MCH (25-34) pg MCHC (32-36) g/dL RDW Std Deviation (36.4-46.3) fL RDW Coeff of Courtney (11.5-14.5) % Plt Count (130-400) K/uL MPV (7.4-10.4) fL Immature Gran % (Auto) % Neut % (Auto) % Lymph % (Auto) % Boundary % (Auto) % Eos % (Auto) % Baso % (Auto) % Neut # (Auto) (1.4-6.5) K/uL Lymph # (Auto) (1.2-3.4) K/uL Boundary # (Auto) (0.11-0.59) K/uL Eos # (Auto) (0-0.5) K/uL Baso # (Auto) (0-0.2) K/uL Immature Gran # (Auto) (0.00-0.02) K/uL PT 48.4 H (9.0-12.0) Seconds INR 5.0 H (0.9-1.1) APTT 51.2 H* (21.0-31.0) Seconds PTT Ratio 1.9 Sodium (136-145) mmol/L Potassium (3.5-5.1) mmol/L Chloride (98-107) mmol/L Carbon Dioxide (21-32) mmol/L Anion Gap (3-11) BUN (6-23) mg/dl Creatinine (0.6-1.2) mg/dl Est Cr Clr Drug Dosing ml/min Est GFR ( Amer) ml/min Est GFR (Non-Af Amer) ml/min BUN/Creatinine Ratio (10-20) Glucose (70-99(Fasting)) mg/dl Calcium (8.5-10.1) mg/dl Magnesium (1.7-2.4) mg/dl Total Bilirubin (0.2-1.0) mg/dl AST (13-39) U/L ALT (7-52) U/L Alkaline Phosphatase (34-104) U/L Troponin I High Sens (0-14) pg/ml B-Natriuretic Peptide (0-100) pg/ml Total Protein (6.0-8.3) gm/dl Albumin (3.4-5.0) gm/dl Globulin (2.5-4.0) gm/dl Albumin/Globulin Ratio (0.9-2) Urine Color Yellow Urine Appearance Clear (Clear) Urine pH 7.5 (4.5-7.5) Ur Specific [place] 1.012 (1.000-1.030) Urine Protein 1+ H (Negative) Urine Glucose (UA) Negative (Negative) Urine Ketones Negative (Negative) Urine Blood 1+ H (Negative) Urine Nitrite Negative (Negative) Urine Bilirubin Negative (Negative) Urine Urobilinogen Negative (Negative) Ur Leukocyte Esterase 1+ H (Negative) Urine WBC (Auto) 10-30 H (0-5) /hpf Urine RBC (Auto) 10-30 H (0-4) /hpf U Hyaline Cast (Auto) 0 (0-5) /lpf U Epithel Cells (Auto) 10-20 H (0-5) /lpf Urine Bacteria (Auto) Negative (Negative) SARS-CoV-2, RNA, NAAT NEGATIVE (NEGATIVE) Imaging Data Radiologist's Impression: Chest X-Ray 07/18/21 04:10 XR chest 1V portable HISTORY: 65 years-old Female cough, sob acute cough with shortness of breath COMPARISON: CTA chest of same day, chest radiograph 04/04/2021 TECHNIQUE: Portable AP view of the chest FINDINGS: Cardiac silhouette is enlarged. Prior median sternotomy with mitral valve prosthesis. A loop recorder device is present. No pneumothorax. Small to moderate right pleural effusion. Pulmonary vascular congestion with interstitial coarsening and mild right basilar consolidation. IMPRESSION: 1. Cardiomegaly with pulmonary edema. 2. Small to moderate right pleural effusion with mild right basilar consolidation. ACT 112: Negative or not required by law. The above report was generated using voice recognition software. It may contain grammatical, syntax or spelling errors. Electronically signed by: Gasper Scott M.D. 07/18/2021 6:41 AM Chest CTA 07/18/21 04:36 CHEST CTA for PULMONARY ARTERIES CT DOSE: 242.91 mGy.cm HISTORY: Cough. R Effusion on cxr worse than previous cxr TECHNIQUE: Multiaxial CT images of the chest were performed following the intravenous administration of contrast to evaluate the pulmonary arteries. Maximal intensity projection images were also obtained. A dose lowering technique was utilized adhering to the principles of ALARA. COMPARISON STUDY: Chest CTA 02/16/2020. FINDINGS: Limited views the upper abdomen demonstrate a normal liver, spleen, a drenal glands. There is retrograde opacification of the hepatic veins. The heart remains moderately enlarged. A mitral valve prosthesis and poststernotomy changes are again noted. There is a small right pleural effusion. No left pleural effusion. Suboptimal evaluation of the thoracic aorta due to the lack of intravenous contrast. However, no definite evidence for a dissection. There is normal caliber thoracic aorta. No filling defects within the pulmonary arteries to suggest a pulmonary embolus. No mediastinal or hilar lymphadenopathy. Left anterior chest wall loop recorder noted. No suspicious lytic or blastic osseous lesions. No pneumothorax. The central airways appear patent. Patchy conso lidation within the base the right lower lobe and right middle lobe. This is nonspecific but favors atelectasis. A pneumonia could also have a similar appearance. IMPRESSION: 1. No evidence for pulmonary embolus. 2. Small right pleural effusion. 3. Moderate cardiomegaly, unchanged. 4. Right middle lobe and right lower lobe airspace opacities. This favors atelectasis. A superimposed pneumonia could also have a similar appearance. ACT 112: Negative or not required by law. Electronically signed by: Darshan Mosquera M.D. 07/18/2021 8:50 AM ECG Data Attestation: I personally reviewed and interpreted this ECG as follows: Indication: + SOB/dyspnea Additional Comments: Atrial fibrillation @[address] elevation Left anterior fascicular block Pulmonary disease pattern Abnormal ECG When compared with ECG of 23-JUN-2021 23:09, No significant change MDM Narrative Physical exam and history were performed. Nursing notes, EMR, and Medication List were personally reviewed. Patient appears to have difficulty breathing and chronic cough. On initial arrival her O2 saturation was 98% on room air, but she did have episodes where she would drop into the low and mid 80s. IV access was established and labs were obtained. Chest x-ray was performed. EKG is without acute ST elevation, and does continue to show her A. fib. An order was placed for continuous cardiac monitoring. The monitor shows a rate of 85 with atrial fibrillation rhythm. The patient's blood work is as above and was reviewed. She does not have a significantly elevated white blood cell count. She is slightly anemic at 10 which is roughly her baseline. She does not have significant electrolyte imbalance. Troponin x1 is negative. INR is supratherapeutic at 5.0. Urine is without obvious evidence of infection. Chest x-ray does show findings in the right lower lobe. The patient medical record through [facility] was reviewed with the assistance of case management, and because of her symptoms I did elect to perform CT scan of her chest. CT scan was also reviewed by myself and radiology showing effusion in the right lower lobe. It is unsure if this is infectious or not as she does not have an elevated white count. BNP is normal. Covid negative. Overall the patient does not appear well for discharge home. She is having transient hypoxia with multiple comorbidities. The case was discussed with the on-call [facility] hospitalist who agreed to evaluate patient here in the ER. Please see their dictation for further patient course, plan, disposition. The chart was completed utilizing [employer] Speech Voice Recognition Software. Grammatical errors, random word insertions, pronoun errors, and incomplete s entences are an occasional consequence of this system due to software limitations, ambient noise, and hardware issues. Any formal questions or concerns about the content, text, or information contained within the body of this dictation should be directly addressed to the provider for clarification. . Impression & Plan Shortness of breath, Atypical chest pain, Hypoxia Discharge Plan Visit Data Chief Complaint: Shortness of Breath/Dyspnea ED Provider: Miki Bello ED Midlevel Provider: Judd Hidalgo Discharge Problem: Shortness of breath, Atypical chest pain, Hypoxia Patient Disposition: Admitted As Inpatient Discharge Instructions Interventions: ED Discharge Assessment Last Done: 07/18/21 08:59
[2021-07-18] MEDS: LEVALBUTEROL HCL 1.25 MG/3 ML NEB NEB PRN (22:14)
[2021-07-18] MEDS ORDERED: COUGH DROP (SUGAR FREE) LOZ 24 LOZ/1 BOX BUCCAL PRN (23:59)
[2021-07-19] MEDS: ACETAMINOPHEN 325 MG TAB PO PRN ×2 (00:13→22:37)
[2021-07-19] MEDS: METOCLOPRAMIDE HCL 10 MG TABLET PO PRN (00:13)
[2021-07-19] MEDS: BENZONATATE 100 MG CAPSULE PO PRN ×2 (02:14→22:04)
[2021-07-19] MEDS ORDERED: KETOROLAC TROMETHAMINE 15 MG/ML VIAL IV ONE (03:23)
[2021-07-19] MEDS: LEVOTHYROXINE SODIUM 100 MCG TABLET PO SCH (04:00)
[2021-07-19 06:15] LABS: Basophils # (auto) 0.02 K/uL (0-0.2); Basophils % (auto) 0.3 %; Eosinophils # (auto) 0.23 K/uL (0-0.5); Eosinophils % (auto) 3.5 %; Hematocrit (blood only) 30.6 % (37-47); Hemoglobin 9.8 g/dL (12.0-16.0); Immature Granulocytes # (auto) 0.01 K/uL (0.00-0.02); Immature Granulocytes % (auto) 0.2 %; Lymphocytes # (auto) 0.72 K/uL (1.2-3.4); Lymphocytes % (auto) 11.1 %; Mean Corpuscular Hemoglobin 26.8 pg (25-34); Mean Corpuscular Volume 83.6 fL (80-100); Mean Platelet Volume 10.2 fL (7.4-10.4); Monocytes # (auto) 0.73 K/uL (0.11-0.59); Monocytes % (auto) 11.3 %; Neutrophils # (auto) 4.77 K/uL (1.4-6.5); Neutrophils % (auto) 73.6 %; Platelet Count 122 K/uL (130-400); Red Blood Count 3.66 M/uL (4.2-5.4); White Blood Count 6.48 K/uL (4.8-10.8)
[2021-07-19 06:31] LABS: INR 5.1 (0.9-1.1); Prothrombin Time 49.4 Seconds (9.0-12.0)
[2021-07-19 06:33] LABS: BUN Creatinine Ratio 10.7 (10-20); Calcium 9.8 mg/dl (8.5-10.1); Creatinine Clr Calc Pharmacy 27.9 ml/min; Est GFR (African American) 38.5 ml/min; Est GFR (Non-African American) 33.3 ml/min; Magnesium 2.1 mg/dl (1.7-2.4); Potassium 3.3 mmol/L (3.5-5.1)
[2021-07-19 06:57] LABS: Estimated Average Glucose 154 mg/dl
[2021-07-19] MEDS: rOPINIRole HCL 2 MG TABLET PO SCH ×3 (08:32→20:47)
[2021-07-19] MEDS: ASCORBIC ACID 500 MG TAB PO SCH (08:32)
[2021-07-19] MEDS: CITALOPRAM 20 MG TAB PO SCH (08:32)
[2021-07-19] MEDS: FOLIC ACID 1 MG TAB PO SCH (08:32)
[2021-07-19] MEDS: SPIRONOLACTONE 12.5 MG TAB PO SCH (08:32)
[2021-07-19] MEDS: METOPROLOL TARTRATE 25 MG TAB PO SCH ×2 (08:32→20:47)
[2021-07-19] MEDS: CHOLECALCIFEROL 1,000 UNITS 25 MCG TAB PO SCH (08:34)
[2021-07-19] MEDS: DOXYCYCLINE HYCLATE 100 MG in DEXTROSE 5% 100 ML IV SCH ×2 (08:43→20:47)
[2021-07-19] MEDS ORDERED: POTASSIUM CHLORIDE CRTAB 20 MEQ TABCR PO STA (09:26)
[2021-07-19] MEDS: FUROSEMIDE 40 MG/4 ML VIAL IV SCH ×2 (10:05→20:47)
[2021-07-19] MEDS: cefTRIAXone SODIUM 1,000 MG in DEXTROSE 5% 50 ML IV SCH (10:42)
--- NOTE | 2021-07-19 10:57 | Cardiology Progress Note ---
Date of Service July 19, 2021 Assessment & Plan (1) Chronic heart failure with preserved ejection fraction (HFpEF): (2) Acute on chronic diastolic HF (heart failure): (3) Pneumonia: (4) Hypokalemia: (5) Elevated INR: (6) H/O mitral valve replacement with mechanical valve: Plan: Admitted for worsening cough/SOB, likely acute on chronic HFpEF/diastolic HF. Continue furosemide 40 mg IV BID today. Monitor I+O's Weight down 3 kg this morning. Good urine outputs overnight. Supplement potassium. Continue antibiotics for possible pneumonia. Per patient, having issues with dysphagia. Consider aspiration pneumonia. Swallowing study to be done. Stable echo findings With regards to her anticoagulation. Goal INR for her mechanical MV prosthesis is 3-3.5. INR =5.1 this morning and therefore coumadin will remain on hold. Case discussed with Dr. Sutton. Will follow Admission and Anticipated Discharge Date Admission Date: July 18, 2021 Supervising Physician Co-Signing Physician Notes Patient seen, a history and physical examination was performed personally. Agree with Trice Low findings with additions as noted. S: Ongoing LE edema, works as day goes on. Ongoing cough. Rate controlled AF on telemetry Impression: As noted. Plan: INR 5.1. Hold coumadin. Continue furosemide. Subjective Patient reports feeling better this morning. SOB improving, but not yet at baseline. Cough slowly improving. No sputum production. No fever or chills. She denies recent chest pain overnight or this morning. Edema improved. No palpitations or tachypalpitations. No dizziness. Reports ongoing dysphagia and possible swallowing study tomorrow Review of Systems Review of Systems: All systems reviewed & are unremarkable except as noted in HPI & below Physical Exam Constitutional: no acute distress Respiratory: + cough; no respiratory distress Auscultation: + diminished lung sounds and + crackles (right base greater than left) Cardiovascular: Rate/Rhythm: + irregularly irregular Heart Sounds: + murmur (II/ crisp mech valve sound) Extremities: + edema (1-2+ LE edema bilatterally ) Gastrointestinal (Abdomen): normal bowel sounds, soft, nontender, no hepatosplenomegaly Neurologic: PERRL, EOMI, accommodation nl, no face palsy, no dysarthria Psychiatric: A+Ox3, euthymic affect Results & Data ([place]) Vital Signs (Past 12 Hours) Vital Signs Temp Pulse Resp BP Pulse Ox 07/19/21 07:27 36.6 C 73 18 125/66 99 07/19/21 04:00 36.8 C 84 16 115/58 L 95 07/18/21 22:54 36.7 C 85 20 110/57 L 95 Laboratory Results Cardiac Enzymes 07/18/21 07/18/21 07/19/21 Range/Units 03:46 21:02 05:44 INR 5.0 H 5.1 H (0.9-1.1) Troponin I High Sens 12.3 (0-14) pg/ml Coagulation 07/19/21 Range/Units 05:44 PT 49.4 H (9.0-12.0) Seconds CBC 07/19/21 Range/Units 05:44 WBC 6.48 (4.8-10.8) K/uL RBC 3.66 L (4.2-5.4) M/uL Hgb 9.8 L (12.0-16.0) g/dL Hct 30.6 L (37-47) % Plt Count 122 L (130-400) K/uL Neut # (Auto) 4.77 (1.4-6.5) K/uL Lymph # (Auto) 0.72 L (1.2-3.4) K/uL [place] # (Auto) 0.73 H (0.11-0.59) K/uL Eos # (Auto) 0.23 (0-0.5) K/uL Baso # (Auto) 0.02 (0-0.2) K/uL Comprehensive Metabolic Panel 07/19/21 Range/Units 05:44 Sodium 135 L (136-145) mmol/L Potassium 3.3 L (3.5-5.1) mmol/L Chloride 100 (98-107) mmol/L Carbon Dioxide 29 (21-32) mmol/L BUN 17 (6-23) mg/dl Creatinine 1.59 H (0.6-1.2) mg/dl Glucose 107 H (70-99(Fasting)) mg/dl Calcium 9.8 (8.5-10.1) mg/dl Intake and Output 07/19/21 07/19/21 07/19/21 06:59 14:59 22:59 Intake Total 198.333 / 370.000 170 / 170 Output Total 700 / 1800 Balance -501.667 / -1430.000 170 / 170 Intake: IV 98.333 / 170.000 170 / 170 Doxycycline Hyclate 100 mg In 98.333 / 110.000 110 / 110 Dextrose 5% 100 ml @ 50 mls/hr IV BID [facility] Rx#:[id number] cefTRIAXone SODIUM 1,000 mg In 60 / 60 Dextrose 5% 50 ml @ 100 mls/hr IV Q24H [facility] Rx#:[id number] Oral 100 / 200 Output: Urine 700 / 1800 Other: Weight 60.6 kg Weight Measurement Method Built in [facility] Chest CTA 07/18/21 04:36 CHEST CTA for PULMONARY ARTERIES CT DOSE: 242.91 mGy.cm HISTORY: Cough. R Effusion on cxr worse than previous cxr TECHNIQUE: Multiaxial CT images of the chest were performed following the intra venous administration of contrast to evaluate the pulmonary arteries. Maximal intensity projection images were also obtained. A dose lowering technique was utilized adhering to the principles of ALARA. COMPARISON STUDY: Chest CTA 02/16/2020. FINDINGS: Limited views the upper abdomen demonstrate a normal liver, spleen, adrenal glands. There is retrograde opacification of the hepatic veins. The heart remains moderately enlarged. A mitral valve prosthesis and poststernotomy changes are again noted. There is a small right pleural effusion. No left pleural effusion. Suboptimal evaluation of the thoracic aorta due to the lack of intravenous contrast. However, no definite evidence for a dissection. There is normal caliber thoracic aorta. No filling defects within the pulmonary arteries to suggest a pulmonary embolus. No mediastinal or hilar lymphadenopathy. Left anterior chest wall loop recorder noted. No suspicious lytic or blastic osseous lesions. No pneumothorax. The central airways appear patent. Patchy consolidation within the base the right lower lobe and right middle lobe. This is nonspecific but favors atelectasis. A pneumonia could also have a similar appearance. IMPRESSION: 1. No evidence for pulmonary embolus. 2. Small right pleural effusion. 3. Moderate cardiomegaly, unchanged. 4. Right middle lobe and right lower lobe airspace opacities. This favors atelectasis. A superimposed pneumonia could also have a similar appearance. ACT 112: Negative or not required by law. Electronically signed by: Darshan Mosquera M.D. 07/18/2021 8:50 AM Venous Doppler Study 07/18/21 09:01 BILATERAL LOWER EXTREMITY VENOUS DOPPLER HISTORY: Acute pain and swelling of the lower extremities bilateral edema. dvt? COMPARISON STUDY: None. FINDINGS: There is normal compressibility, flow, and augmentation within the bilateral lower extremity deep venous systems. IMPRESSION: No DVT within the right or left lower extremity. ACT 112: Negative or not required by law. Electronically signed by: Gasper Scott M.D. 07/18/2021 10:15 AM Diagnostic Findings Telemetry reviewed: Chronic afib, rates controlled. LV systolic function is mildly reduced. EF 40-45% Severe hypokinesis to akinesis of the basal inferior wall, inferoseptum. Otherwise mild diffuse hypokinesis. Mild MR Small loculated anterior and right lateral pericardial effusion with moderate organization No evidence of tamponade Compared to prior study dated 06/06/21, LV systolic function has improved. Pericardial effusion previously reported as moderate, now appears small. Medications Administered Current Inpatient Medications Acetaminophen (Acetaminophen 325 Mg Tab) 650 mg PO Q4H PRN PRN Reason: Pain or Fever Stop: 08/17/21 09:00 Last Admin: 07/19/21 00:13 Dose: 650 mg Documented by: Albuterol (Albuterol Hfa 8 Gm Inhaler) 2 puffs INH Q4H PRN PRN Reason: Shortness Of Breath Or Wheezing Stop: 08/17/21 09:00 Ascorbic Acid (Ascorbic Acid 500 Mg Tab) 500 mg PO DAILY [facility] Stop: 08/17/21 09:44 Last Admin: 07/19/21 08:32 Dose: 500 mg Documented by: Benzonatate (Benzonatate 100 Mg Capsule) 100 mg PO TID PRN PRN Reason: Cough Stop: 08/18/21 00:11 Last Admin: 07/19/21 02:14 Dose: 100 mg Documented by: Citalopram Hydrobromide (Citalopram 20 Mg Tab) 10 mg PO DAILY [facility] Stop: 08/17/21 09:59 Last Admin: 07/19/21 08:32 Dose: 10 mg Documented by: Folic Acid (Folic Acid 1 Mg Tab) 1 mg PO QAM [facility] Stop: 08/17/21 09:44 Last Admin: 07/19/21 08:32 Dose: 1 mg Documented by: Furosemide (Furosemide 40 Mg/4 Ml Vial) 40 mg IV BID [facility] Stop: 08/17/21 09:59 Last Admin: 07/19/21 10:05 Dose: 40 mg Documented by: Ceftriaxone Sodium 1,000 mg/ (Dextrose) 60 mls @ 100 mls/hr IV Q24H [facility]; Protocol Stop: 07/28/21 09:59 Last Admin: 07/19/21 10:42 Dose: 100 mls/hr Documented by: Doxycycline Hyclate 100 mg/ (Dextrose) 110 mls @ 50 mls/hr IV BID [facility] Stop: 07/25/21 19:59 Last Admin: 07/19/21 08:43 Dose: 50 mls/hr Documented by: Levalbuterol HCl (Levalbuterol Hcl 1.25 Mg/3 Ml Neb) 1.25 mg NEB Q2H PRN; Protocol PRN Reason: Shortness Of Breath Or Wheezing Stop: 08/17/21 09:00 Last Admin: 07/18/21 22:14 Dose: 1.25 mg Documented by: Levothyroxine Sodium (Levothyroxine Sodium 100 Mcg Tablet) 100 mcg PO DAILYBB [facility] Stop: 08/17/21 09:44 Last Admin: 07/19/21 04:00 Dose: 100 mcg Documented by: Menthol (Cough Drop (Sugar Free) Raúl 24 Raúl/1 Box) 1 raúl BUCCAL PRN PRN PRN Reason: Sore Throat Stop: 08/17/21 23:58 Last Admin: 07/19/21 00:24 Dose: 1 raúl Documented by: Metoclopramide HCl (Metoclopramide Hcl 10 Mg Tablet) 10 mg PO DAILY PRN PRN Reason: Nausea Stop: 08/17/21 23:46 Last Admin: 07/19/21 00:13 Dose: 10 mg Documented by: Metoprolol Tartrate (Metoprolol Tartrate 25 Mg Tab) 12.5 mg PO BID [facility] Stop: 08/17/21 09:44 Last Admin: 07/19/21 08:32 Dose: 12.5 mg Documented by: Nitroglycerin (Nitroglycerin Sl 0.4 Mg/Tab Tab) 0.4 mg SL UD PRN PRN Reason: Chest Pain Stop: 08/17/21 09:00 Pantoprazole Sodium (Pantoprazole 40 Mg Tab) 40 mg PO PM [facility] Stop: 08/17/21 20:59 Last Admin: 07/18/21 21:15 Dose: 40 mg Documented by: Polyethylene Glycol (Polyethylene (Miralax) 17 Gm Pack) 17 gm PO DAILY PRN PRN Reason: Constipation Stop: 08/17/21 09:00 Ropinirole HCl (Ropinirole Hcl 2 Mg Tablet) 2 mg PO TID [facility] Stop: 08/17/21 09:59 Last Admin: 07/19/21 08:32 Dose: 2 mg Documented by: Rosuvastatin Calcium (Rosuvastatin Calcium 20 Mg Tab) 20 mg PO HS [facility] Stop: 08/17/21 20:59 Last Admin: 07/18/21 21:16 Dose: 20 mg Documented by: Spironolactone (Spironolactone 12.5 Mg Tab) 12.5 mg PO DAILY [facility] Stop: 08/17/21 09:44 Last Admin: 07/19/21 08:32 Dose: 12.5 mg Documented by: Vitamin D (Cholecalciferol 1,000 Units 25 Mcg Tab) 1,000 units PO QAM [facility] Stop: 08/17/21 09:44 Last Admin: 07/19/21 08:34 Dose: 1,000 units Documented by:
[2021-07-19] MEDS: LEVALBUTEROL HCL 1.25 MG/3 ML NEB NEB PRN ×2 (15:15→19:57)
--- NOTE | 2021-07-19 18:06 | Hospitalist Progress Note ---
Date of Service July 19, 2021 Assessment & Plan Plan: Acute on chronic diastolic CHF -management per cardiology, currently on IV lasix -volume status improved but not back to baseline per patient Questionable pneumonia vs atelectasis -seen on CTA chest -will check procalcitonin with AM labs, continue antibiotics for now Dysphagia -reports recent normal EGD -plan for swallow study tomorrow Hypokalemia -repleted Hyponatremia -mild, monitor for now Mechanical mitral Valve A fib on coumadin Supratherapeutic INR -continue to hold coumadin. Goal INR 2.5-3.5 -continue metoprolol 12.5mg BID DVT ppx resume coumadin when INR is less than 3.5 Admission and Anticipated Discharge Date Admission Date: July 18, 2021 Subjective cough, shortness of breath improved Reports ongoing "food getting stuck" when she swallows but reports normal EGD. Physical Exam Physical Exam: Pleasant, no acute distress, non toxic Respiratory: breathing comfortably, diminished at bases, no wheezing Cardiovascular: regular rate and rhythm, no murmurs/rubs Gastrointestinal (Abdomen): soft, non tender Musculoskeletal: bilateral 1+ edema Neurologic: awake, alert, spontaneously moving extremities Results & Data Results & Data ([facility]) Vital Signs (Past 12 Hours) Vital Signs Temp Pulse Resp BP Pulse Ox 07/19/21 17:11 36.6 C 90 18 133/71 96 07/19/21 15:15 79 19 95 07/19/21 07:27 36.6 C 73 18 125/66 99 Laboratory Results Short CBC 07/19/21 Range/Units 05:44 WBC 6.48 (4.8-10.8) K/uL Hgb 9.8 L (12.0-16.0) g/dL Hct 30.6 L (37-47) % Plt Count 122 L (130-400) K/uL BMP 07/19/21 05:44 Sodium 135 L Potassium 3.3 L Chloride 100 Carbon Dioxide 29 BUN 17 Creatinine 1.59 H Glucose 107 H Calcium 9.8 Medications Administered Current Inpatient Medications Acetaminophen (Acetaminophen 325 Mg Tab) 650 mg PO Q4H PRN PRN Reason: Pain or Fever Stop: 08/17/21 09:00 Last Admin: 07/19/21 00:13 Dose: 650 mg Documented by: Albuterol (Albuterol Hfa 8 Gm Inhaler) 2 puffs INH Q4H PRN PRN Reason: Shortness Of Breath Or Wheezing Stop: 08/17/21 09:00 Ascorbic Acid (Ascorbic Acid 500 Mg Tab) 500 mg PO DAILY [facility] Stop: 08/17/21 09:44 Last Admin: 07/19/21 08:32 Dose: 500 mg Documented by: Benzonatate (Benzonatate 100 Mg Capsule) 100 mg PO TID PRN PRN Reason: Cough Stop: 08/18/21 00:11 Last Admin: 07/19/21 02:14 Dose: 100 mg Documented by: Citalopram Hydrobromide (Citalopram 20 Mg Tab) 10 mg PO DAILY [facility] Stop: 08/17/21 09:59 Last Admin: 07/19/21 08:32 Dose: 10 mg Documented by: Folic Acid (Folic Acid 1 Mg Tab) 1 mg PO QAM [facility] Stop: 08/17/21 09:44 Last Admin: 07/19/21 08:32 Dose: 1 mg Documented by: Furosemide (Furosemide 40 Mg/4 Ml Vial) 40 mg IV BID [facility] Stop: 08/17/21 09:59 Last Admin: 07/19/21 10:05 Dose: 40 mg Documented by: Ceftriaxone Sodium 1,000 mg/ (Dextrose) 60 mls @ 100 mls/hr IV Q24H [facility]; Protocol Stop: 07/28/21 09:59 Last Infusion: 07/19/21 11:19 Dose: Infused Documented by: Doxycycline Hyclate 100 mg/ (Dextrose) 110 mls @ 50 mls/hr IV BID [facility] Stop: 07/25/21 19:59 Last Infusion: 07/19/21 11:13 Dose: Infused Documented by: Levalbuterol HCl (Levalbuterol Hcl 1.25 Mg/3 Ml Neb) 1.25 mg NEB Q2H PRN; Protocol PRN Reason: Shortness Of Breath Or Wheezing Stop: 08/17/21 09:00 Last Admin: 07/19/21 15:15 Dose: 1.25 mg Documented by: Levothyroxine Sodium (Levothyroxine Sodium 100 Mcg Tablet) 100 mcg PO DAILYBB [facility] Stop: 08/17/21 09:44 Last Admin: 07/19/21 04:00 Dose: 100 mcg Documented by: Menthol (Cough Drop (Sugar Free) Raúl 24 Raúl/1 Box) 1 raúl BUCCAL PRN PRN PRN Reason: Sore Throat Stop: 08/17/21 23:58 Last Admin: 07/19/21 00:24 Dose: 1 raúl Documented by: Metoclopramide HCl (Metoclopramide Hcl 10 Mg Tablet) 10 mg PO DAILY PRN PRN Reason: Nausea Stop: 08/17/21 23:46 Last Admin: 07/19/21 00:13 Dose: 10 mg Documented by: Metoprolol Tartrate (Metoprolol Tartrate 25 Mg Tab) 12.5 mg PO BID [facility] Stop: 08/17/21 09:44 Last Admin: 07/19/21 08:32 Dose: 12.5 mg Documented by: Nitroglycerin (Nitroglycerin Sl 0.4 Mg/Tab Tab) 0.4 mg SL UD PRN PRN Reason: Chest Pain Stop: 08/17/21 09:00 Pantoprazole Sodium (Pantoprazole 40 Mg Tab) 40 mg PO PM [facility] Stop: 08/17/21 20:59 Last Admin: 07/18/21 21:15 Dose: 40 mg Documented by: Polyethylene Glycol (Polyethylene (Miralax) 17 Gm Pack) 17 gm PO DAILY PRN PRN Reason: Constipation Stop: 08/17/21 09:00 Ropinirole HCl (Ropinirole Hcl 2 Mg Tablet) 2 mg PO TID [facility] Stop: 08/17/21 09:59 Last Admin: 07/19/21 14:12 Dose: 2 mg Documented by: Rosuvastatin Calcium (Rosuvastatin Calcium 20 Mg Tab) 20 mg PO HS [facility] Stop: 08/17/21 20:59 Last Admin: 07/18/21 21:16 Dose: 20 mg Documented by: Spironolactone (Spironolactone 12.5 Mg Tab) 12.5 mg PO DAILY [facility] Stop: 08/17/21 09:44 Last Admin: 07/19/21 08:32 Dose: 12.5 mg Documented by: Vitamin D (Cholecalciferol 1,000 Units 25 Mcg Tab) 1,000 units PO QAM [facility] Stop: 08/17/21 09:44 Last Admin: 07/19/21 08:34 Dose: 1,000 units Documented by:
[2021-07-19] MEDS: ROSUVASTATIN CALCIUM 20 MG TAB PO SCH (20:47)
[2021-07-19] MEDS: PANTOprazole 40 MG TAB PO SCH (20:47)
[2021-07-20] MEDS: BENZONATATE 100 MG CAPSULE PO PRN ×2 (06:04→20:49)
[2021-07-20] MEDS: LEVOTHYROXINE SODIUM 100 MCG TABLET PO SCH (06:04)
[2021-07-20 06:52] LABS: Hematocrit (blood only) 32.6 % (37-47); Hemoglobin 10.2 g/dL (12.0-16.0); Mean Corpuscular Hemoglobin 26.4 pg (25-34); Mean Corpuscular Hgb Conc 31.3 g/dL (32-36); Mean Corpuscular Volume 84.2 fL (80-100); Mean Platelet Volume 11.1 fL (7.4-10.4); Platelet Count 141 K/uL (130-400); RDW Coefficient of Variation 16.3 % (11.5-14.5); RDW Standard Deviation 49.9 fL (36.4-46.3); Red Blood Count 3.87 M/uL (4.2-5.4); White Blood Count 5.02 K/uL (4.8-10.8)
[2021-07-20 07:13] LABS: BUN Creatinine Ratio 12.5 (10-20); Calcium 9.8 mg/dl (8.5-10.1); Creatinine Clr Calc Pharmacy 27.3 ml/min; Est GFR (African American) 38.2 ml/min; Magnesium 2.1 mg/dl (1.7-2.4); Potassium 3.7 mmol/L (3.5-5.1)
[2021-07-20 07:20] LABS: INR 3.6 (0.9-1.1); Prothrombin Time 35.9 Seconds (9.0-12.0)
[2021-07-20] MEDS: LEVALBUTEROL HCL 1.25 MG/3 ML NEB NEB PRN (07:44)
--- NOTE | 2021-07-20 10:10 | Cardiology Progress Note ---
Date of Service July 20, 2021 Assessment & Plan (1) Chronic heart failure with preserved ejection fraction (HFpEF): (2) Acute on chronic diastolic HF (heart failure): (3) Hypokalemia: (4) Elevated INR: (5) H/O mitral valve replacement with mechanical valve: Plan: Admitted for worsening cough/SOB, likely mixed acute on chronic HFpEF/diastolic HF and pneumonia. Possible aspiration issues with dysphagia. Continue furosemide 40 mg IV BID Monitor I+O's Weight down. Good urine outputs. Supplement potassium. Continue antibiotics for possible pneumonia. Per patient, having issues with dysphagia. Consider aspiration pneumonia. Swallowing study to be done today. Stable echo findings With regards to her anticoagulation. Goal INR for her mechanical MV prosthesis is 3-3.5. INR =3.6 this morning. Start coumadin 5 mg daily. Home dose is 7.5 2 days per week and 5 mg other days. Case discussed with Dr. Sutton. Will follow Admission and Anticipated Discharge Date Admission Date: July 18, 2021 Supervising Physician Co-Signing Physician Notes Supervising Physician Attestation: I have personally performed a history and physical examination on the patient. I agree with the physician information technology assistant's findings and plan as documented with the following additions. Subjective: Patient feeling well cardiac wallace. Leg swelling improved in the morning, tends to be worse by the evening. Barium swallow abnormal. GI consulted. Exam: 1+ lower extremity edema, improved Data: As noted above Assessment and Plan: Resume Coumadin for now, as GI recommends allowing time for pneumonia to improve prior to consider EGD. Judd Sutton, DO Subjective Patient reports feeling "miserable" this morning. Spent most of the night coughing. Swallowing study to b done today. Denies chest pain. SOB improving. no fever or chills. Edema improved. Review of Systems Review of Systems: All systems reviewed & are unremarkable except as noted in HPI & below Physical Exam Constitutional: no acute distress Respiratory: + cough; no respiratory distress Auscultation: + diminished lung sounds and + crackles (right base greater than left) Cardiovascular: Rate/Rhythm: + irregularly irregular Heart Sounds: + murmur (II/ crisp mech valve sound) Vessels: no JVD Extremities: no edema Gastrointestinal (Abdomen): normal bowel sounds, soft, nontender, no hepatosplenomegaly Neurologic: PERRL, EOMI, accommodation nl, no face palsy, no dysarthria Psychiatric: A+Ox3, euthymic affect Results & Data ([facility]) Vital Signs (Past 12 Hours) Vital Signs Temp Pulse Pulse Resp BP BP Pulse Ox 07/20/21 07:44 91 H 18 97 07/20/21 07:26 36.7 C 76 17 118/70 96 07/20/21 03:57 36.7 C 76 16 120/72 98 07/20/21 01:49 86 07/19/21 22:36 36.8 C 82 18 124/57 L 96 Laboratory Results Cardiac Enzymes 07/18/21 07/18/21 07/19/21 Range/Units 03:46 03:46 05:44 INR 5.0 H 5.1 H (0.9-1.1) Creatinine 1.37 H (0.6-1.2) mg/dl 07/19/21 07/20/21 07/20/21 Range/Units 05:44 06:28 06:28 INR 3.6 H (0.9-1.1) Creatinine 1.59 H 1.60 H (0.6-1.2) mg/dl Coagulation 07/20/21 Range/Units 06:28 PT 35.9 H (9.0-12.0) Seconds CBC 07/20/21 Range/Units 06:28 WBC 5.02 (4.8-10.8) K/uL RBC 3.87 L (4.2-5.4) M/uL Hgb 10.2 L (12.0-16.0) g/dL Hct 32.6 L (37-47) % Plt Count 141 (130-400) K/uL Comprehensive Metabolic Panel 07/20/21 Range/Units 06:28 Sodium 136 (136-145) mmol/L Potassium 3.7 (3.5-5.1) mmol/L Chloride 99 (98-107) mmol/L Carbon Dioxide 28 (21-32) mmol/L BUN 20 (6-23) mg/dl Creatinine 1.60 H (0.6-1.2) mg/dl Glucose 103 H (70-99(Fasting)) mg/dl Calcium 9.8 (8.5-10.1) mg/dl Intake and Output 07/19/21 07/20/21 07/20/21 22:59 06:59 14:59 Intake Total 260 / 430 Output Total 700 / 1800 1100 / 1800 Balance -440 / -1370 -1100 / -1370 Intake: IV 110 / 280 Doxycycline Hyclate 100 mg In 110 / 220 Dextrose 5% 100 ml @ 50 mls/hr IV BID [facility] Rx#:[id number] Oral 150 / 150 Output: Urine 700 / 1800 1100 / 1800 Other: Other Intake Source NPO Weight 58.5 kg Weight Measurement Method Standing Scale Diagnostic Findings Telemetry reviewed: Chronic afib, rates controlled 70-80's, increasing to 100's while coughing or with ambulation Medications Administered Current Inpatient Medications Acetaminophen (Acetaminophen 325 Mg Tab) 650 mg PO Q4H PRN PRN Reason: Pain or Fever Stop: 08/17/21 09:00 Last Admin: 07/19/21 22:37 Dose: 650 mg Documented by: Albuterol (Albuterol Hfa 8 Gm Inhaler) 2 puffs INH Q4H PRN PRN Reason: Shortness Of Breath Or Wheezing Stop: 08/17/21 09:00 Ascorbic Acid (Ascorbic Acid 500 Mg Tab) 500 mg PO DAILY [facility] Stop: 08/17/21 09:44 Last Admin: 07/19/21 08:32 Dose: 500 mg Documented by: Benzonatate (Benzonatate 100 Mg Capsule) 100 mg PO TID PRN PRN Reason: Cough Stop: 08/18/21 00:11 Last Admin: 07/20/21 06:04 Dose: 100 mg Documented by: Citalopram Hydrobromide (Citalopram 20 Mg Tab) 10 mg PO DAILY [facility] Stop: 08/17/21 09:59 Last Admin: 07/19/21 08:32 Dose: 10 mg Documented by: Folic Acid (Folic Acid 1 Mg Tab) 1 mg PO QAM [facility] Stop: 08/17/21 09:44 Last Admin: 07/19/21 08:32 Dose: 1 mg Documented by: Furosemide (Furosemide 40 Mg/4 Ml Vial) 40 mg IV BID [facility] Stop: 08/17/21 09:59 Last Admin: 07/19/21 20:47 Dose: 40 mg Documented by: Levalbuterol HCl (Levalbuterol Hcl 1.25 Mg/3 Ml Neb) 1.25 mg NEB Q2H PRN; Protocol PRN Reason: Shortness Of Breath Or Wheezing Stop: 08/17/21 09:00 Last Admin: 07/20/21 07:44 Dose: 1.25 mg Documented by: Levothyroxine Sodium (Levothyroxine Sodium 100 Mcg Tablet) 100 mcg PO DAILYBB [facility] Stop: 08/17/21 09:44 Last Admin: 07/20/21 06:04 Dose: 100 mcg Documented by: Menthol (Cough Drop (Sugar Free) Elinaa 24 Eliana/1 Box) 1 eliana BUCCAL PRN PRN PRN Reason: Sore Throat Stop: 08/17/21 23:58 Last Admin: 07/19/21 00:24 Dose: 1 eliana Documented by: Metoclopramide HCl (Metoclopramide Hcl 10 Mg Tablet) 10 mg PO DAILY PRN PRN Reason: Nausea Stop: 08/17/21 23:46 Last Admin: 07/19/21 00:13 Dose: 10 mg Documented by: Metoprolol Tartrate (Metoprolol Tartrate 25 Mg Tab) 12.5 mg PO BID [facility] Stop: 08/17/21 09:44 Last Admin: 07/19/21 20:47 Dose: 12.5 mg Documented by: Nitroglycerin (Nitroglycerin Sl 0.4 Mg/Tab Tab) 0.4 mg SL UD PRN PRN Reason: Chest Pain Stop: 08/17/21 09:00 Pantoprazole Sodium (Pantoprazole 40 Mg Tab) 40 mg PO PM [facility] Stop: 08/17/21 20:59 Last Admin: 07/19/21 20:47 Dose: 40 mg Documented by: Polyethylene Glycol (Polyethylene (Miralax) 17 Gm Pack) 17 gm PO DAILY PRN PRN Reason: Constipation Stop: 08/17/21 09:00 Potassium Chloride (Potassium Chloride Crtab 20 Meq Tabcr) 40 meq PO QAM [facility] Stop: 07/22/21 09:01 Ropinirole HCl (Ropinirole Hcl 2 Mg Tablet) 2 mg PO TID [facility] Stop: 08/17/21 09:59 Last Admin: 07/19/21 20:47 Dose: 2 mg Documented by: Rosuvastatin Calcium (Rosuvastatin Calcium 20 Mg Tab) 20 mg PO HS [facility] Stop: 08/17/21 20:59 Last Admin: 07/19/21 20:47 Dose: 20 mg Documented by: Saccharomyces Boulardii (Saccharomyces Boulardii 250 Mg Cap) 250 mg PO DAILY [facility] Stop: 08/19/21 08:59 Spironolactone (Spironolactone 12.5 Mg Tab) 12.5 mg PO DAILY [facility] Stop: 08/17/21 09:44 Last Admin: 07/19/21 08:32 Dose: 12.5 mg Documented by: Vitamin D (Cholecalciferol 1,000 Units 25 Mcg Tab) 1,000 units PO QAM [facility] Stop: 08/17/21 09:44 Last Admin: 07/19/21 08:34 Dose: 1,000 units Documented by: Warfarin Sodium (Warfarin Sod 5 Mg Tab) 5 mg PO DAILY@1600 [facility] Stop: 08/19/21 15:59
--- NOTE | 2021-07-20 11:18 | Fluoroscopy Report ---
DOUBLE CONTRAST BARIUM ESOPHAGRAM CLINICAL HISTORY: Globus sensation. COMPARISON STUDY: No priors.. TECHNIQUE: A standard air contrast barium esophagram is performed. Multiple spot images of the esopha anjelica are acquired both upright and prone. FINDINGS: Midline sternotomy wires are noted. The patient swallowed barium without difficulty. The ba rium pill became lodged in the mid esophagus and was unable to pass. A web is suggested in the upper esophagus. The mucosal pattern is normal. There is no evidence of intrinsic or extrinsic mass lesion. Silent aspiration was seen during the examination. The gastroesophageal junction distended normally . No gastroesophageal reflux could be elicited by having the patient perform the Valsalva maneuver. Fluoroscopy time: 2.2 minutes. Fluoroscopic images: 17 spot images and 2 cine loops. IMPRESSION: 1. Silent aspiration was observed during the examination. 2. The barium pill became lodged in the midesophagus. 3. A web is suggested in the upper esophagus. ACT 112: Negative or not required by law. Electronically signed by: Roberto Carlos Blandon M.D. 07/20/2021 11:17 AM
[2021-07-20] MEDS: POTASSIUM CHLORIDE CRTAB 20 MEQ TABCR PO SCH (11:59)
[2021-07-20] MEDS: CHOLECALCIFEROL 1,000 UNITS 25 MCG TAB PO SCH (12:00)
[2021-07-20] MEDS: METOPROLOL TARTRATE 25 MG TAB PO SCH ×2 (12:00→20:44)
[2021-07-20] MEDS: METOCLOPRAMIDE HCL 10 MG TABLET PO PRN (12:00)
[2021-07-20] MEDS: rOPINIRole HCL 2 MG TABLET PO SCH ×3 (12:00→20:45)
[2021-07-20] MEDS: SPIRONOLACTONE 12.5 MG TAB PO SCH (12:00)
[2021-07-20] MEDS: CITALOPRAM 20 MG TAB PO SCH (12:01)
[2021-07-20] MEDS: ASCORBIC ACID 500 MG TAB PO SCH (12:01)
[2021-07-20] MEDS: FUROSEMIDE 40 MG/4 ML VIAL IV SCH ×2 (12:01→20:49)
[2021-07-20] MEDS: FOLIC ACID 1 MG TAB PO SCH (12:01)
[2021-07-20] MEDS: SACCHAROMYCES BOULARDII 250 MG CAP PO SCH (12:01)
--- NOTE | 2021-07-20 13:43 | Electrocardiogram Report ---
Test Reason : Blood Pressure : / mmHG Vent. Rate : 068 BPM Atrial Rate : 326 BPM P-R Int : 000 ms QRS Dur : 092 ms QT Int : 418 ms P-R-T Axes : 000 -55 217 degrees QTc Int : 444 ms Atrial fibrillation Left anterior fascicular block Diffuse Nonspecific T wave abnormality Abnormal ECG When compared with ECG of 18-JUL-2021 03:59, Diffuse Nonspecific T wave abnormality now present Confirmed by Jose Roland ([id number]) on 07/20/2021 1:42:33 PM Referred By: REFERRED SELF Confirmed By:Jose Roland
--- NOTE | 2021-07-20 14:08 | Gastrointestinal Consultation ---
Date of Consultation July 20, 2021 Assessment & Plan (1) Dysphagia: Her hx symptoms are somewhat suggestive of oropharyngeal dysphagia and symptoms were present and similar prior to most recent EGD in Feb 2020 at which time there was not a structural cause of the dysphagia so would consider a neurological cause. Certainly her symptoms could be multifactorial and she likely has some esophageal dysmotility. 1. Diet per speech recommendations: slippery, alternate foods, liquids. 2. Consider OP speech therapy for exercises to strengthen/coordinate the swallowing muscles. 3. After resolution of pneumonia/optimization of respiratory status, will plan to do EGD. 4. If EGD w/o cause of dysphagia, then could consider OP esophageal manometry. Supervising Physician Co-Signing Physician Notes Attending attestation I have seen, examined this patient, and agree with the findings and above by our mid-level provider SOFI Cintron, with the following additions: patient with mechanical MV adm with CHF and possible PNA with chronic cough and with chronic orpharyngeal dyphagia Has classical orpharyngeal dysfunction, barium with possible silent aspiration, prior EGD with similar symptoms without luminal pathology. EGD would likely be diagnostic, and not likely therapeutic given symptoms and history. Current INR and cardiology desire to not reverse makes safe empiric or other dilation risky and not recommended. Not optimized from a cardio/pulmonary standpoint and given complexity can evaluate EGD timing (inpt may make more sense) after optimization as well as speech therapy intervention. History of Present Illness Reason for Consultation: Solids dysphagia Requesting Physician: Dr. Calderon Attending Physician: Berny Calderon MD History of Present Illness Ms. Abdi Bowling is a 65 yr od female pt of Dr. Blanco with a hx of DM-2, Hypothyroid, Hyperlipidemia, CKD3, diastolic CHF, hx rheumatic heart disease, MV replacement w mechanical on warfarin, RLS, GERD, TIA, recurrent falls, anxiety. She presented to the ED yesterday for cough, worsened respiratory status. X-ray suggestive of aspiration pneumonia as well as pulmonary edema. She tells us that she has had difficulty swallowing for years, even prior to most recent EGD in Feb 2020. She describes the feeling of food getting caught at the base of the throat. She frequently coughs up phlegm. She denies any feeling of food getting stuck in the chest. No coughing out or spewing of foods when swallowing. Barium swallow today w silent aspiration. Speach recommendation is for a slippery diet. Allergies Allergy/AdvReac Type Severity Reaction Status Date / Time hydroxyzine Allergy Severe DYSTONIA Verified 07/18/21 07:32 prochlorperazine Allergy Severe NUCHAL Verified 07/18/21 07:32 DYSTONIA promethazine Allergy Severe NUCHAL Verified 07/18/21 07:32 DYSTONIA oxycodone Allergy Intermediate Numbness Verified 07/18/21 07:32 PERRY Inhibitors AdvReac Intermediate COUGH Verified 07/18/21 07:32 lisinopril AdvReac Intermediate Cough Verified 07/18/21 07:32 metformin AdvReac Intermediate DIARRHEA Verified 07/18/21 07:32 parsley AdvReac Intermediate AGITATION Verified 07/18/21 07:32 tetracycline AdvReac Intermediate DYSPEPSIA Verified 07/18/21 07:32 gabapentin AdvReac Drowsy Verified 07/18/21 07:32 NAUSEA MEDICINES Allergy Unknown SEE NOTE Uncoded 07/18/21 07:32 BELOW Home Medications Medication Instructions Recorded Confirmed Type cholecalciferol (vitamin D3) 25 1,000 unit PO QAM 12/05/17 07/18/21 History mcg (1,000 unit) capsule (Vitamin D3) nitroglycerin 0.4 mg sublingual 0.4 mg SUBLINGUAL DIRECTED PRN 12/05/17 07/18/21 History tablet (Nitrostat) omeprazole 20 mg capsule,delayed 20 mg PO PM 12/05/17 07/18/21 History release furosemide 40 mg tablet 80 mg PO MOWEFRSA 05/18/18 07/18/21 History levothyroxine 100 mcg tablet 100 mcg PO DAILYBB 05/18/18 07/18/21 History folic acid 1 mg tablet 1 mg PO QAM #30 tab 05/21/18 07/18/21 Rx ropinirole 2 mg tablet 2 mg PO TID 10/08/18 07/18/21 History acetaminophen 500 mg tablet 500 mg PO Q6H PRN 12/31/19 07/18/21 History (Tylenol Extra Strength) magnesium hydroxide 400 mg/5 mL 5 ml PO DAILY PRN 12/31/19 07/18/21 History oral suspension (Milk of Magnesia) spironolactone 25 mg tablet 12.5 mg PO DAILY 12/31/19 07/18/21 History furosemide 40 mg tablet 40 mg PO SUTUTH 10/15/20 07/18/21 History rosuvastatin 20 mg tablet 20 mg PO HS 10/15/20 07/18/21 History ascorbic acid (vitamin C) 500 mg 500 mg PO DAILY 03/31/21 07/18/21 History tablet (Vitamin C) metoprolol tartrate 25 mg tablet 12.5 mg PO BID #30 tab 04/09/21 07/18/21 Rx albuterol sulfate 90 mcg/actuation 2 puff INHALATION Q4H PRN 07/18/21 07/18/21 History aerosol inhaler benzonatate 100 mg capsule 100 mg PO TID 07/18/21 07/18/21 History bisacodyl 10 mg rectal suppository 10 mg NE DAILY 07/18/21 07/18/21 History citalopram 10 mg tablet 10 mg PO DAILY 07/18/21 07/18/21 History magnesium glycinate 100 mg tablet 0 mg PO DAILY 07/18/21 07/18/21 History metoclopramide HCl 10 mg tablet 10 mg PO DAILY PRN 07/18/21 07/18/21 History sennosides 17.2 mg tablet 17.2 mg PO HS PRN 07/18/21 07/18/21 History tramadol 50 mg tablet 50 mg PO TID PRN 07/18/21 07/18/21 History warfarin 5 mg tablet 5 mg PO DIRECTED 07/18/21 07/18/21 History Patient History Medical History A-fib Anemia chronic; baseline hgb 9-10 range per chart review Anxiety CKD (chronic kidney disease), stage III Diabetes diet controlled GERD (gastroesophageal reflux disease) controlled History of blood transfusion autologous s/p MVR (1993), 09/2018 (post-op) HTN (hypertension) Hx of myocardial infarction 2000, medical management Hyperlipidemia Hypothyroidism Migraines 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 migraine vs. stress related)-- plavix since discontinued Surgical History H/O radioactive iodine thyroid ablation H/O: hysterectomy History of cardiac cath 2000= NO STENTS History of colonoscopy History of tonsillectomy and adenoidectomy History of total left knee replacement Hx of appendectomy Hx of cholecystectomy Hx of mitral valve replacement 1993 (rheumatic valvular disease) Hx of tubal ligation Family History Uncle , of [place] in his 40s Coronary heart disease Social History Smoking Status: Never smoker Second Hand Exposure: No; Do You Dip or Chew Tobacco: No; Tobacco Cessation Education Requested by Patient: No Hx Alcohol Use: Yes Alcohol type: wine Hx Substance Use: No Preferred Language: Armenian Communication Ability: Effective Gse Mechanic Required: No Beliefs That Will Affect Care: None marital status: Single Current Living Situation: Alone Current Living Situation Comment: takes care of mother current occupational status: disabled How many Children do You have: 0 Other Information That Helps Us Care for You: No Feels Safe at Home: Yes Safety Concerns: Feels Safe At This Time Assistive Devices: Cane and Walker Assistive Devices Comment: walker at night, cane during the day Review of Systems Review of Systems: ROS: Gen: Denies weakness, fevers, weight loss Eyes: No eye redness, or pain, no recent vision changes Resp: + cough, +SOB Cardio: No palpitations/irregular beats, no chest pain GI: No abdominal pain, no nausea/vomiting : Denies pain on urination Skin: No jaundice, itching or new rashes Physical Exam Constitutional: well developed, + ill appearing and cooperative Eyes: PERRL, conjunctivae normal, anicteric sclerae ENMT: external ear and nose normal, oropharynx normal Neck: trachea midline, no thyromegaly Respiratory: + labored breathing (slightly, with ambulation), + cough and able to speak in complete sentences Auscultation: + crackles, + rales and + wheezes O2 via NC Cardiovascular: RRR, + click of mechanical valve, no edema Gastrointestinal (Abdomen): normal bowel sounds, soft, nontender, no hepatosplenomegaly Skin: no rashes, warm and dry normal turgor Neurologic: PERRL, EOMI, accommodation nl, no face palsy, no dysarthria awake; not confused Psychiatric: A+Ox3, euthymic affect Orientation: alert, oriented x 3 and cooperative Lymphatic: no cervical or axillary lymphadenopathy Results & Data ([facility]) Vital Signs (Past 12 Hours) Vital Signs Temp Pulse Resp BP BP Pulse Ox 07/20/21 11:08 36.7 C 83 17 145/74 H 100 07/20/21 07:44 91 H 18 97 07/20/21 07:26 36.7 C 76 17 118/70 96 07/20/21 03:57 36.7 C 76 16 120/72 98 Laboratory Results WBC 3, Hb 10, Hct 32, Plts 141, Na 136, K 3.7, Cl 99, CO2 28, BUN 20, Cr 1.6, glucose 103. Diagnostic Findings Barium esophagram 07/20/21: 1. Silent aspiration was observed during the examination. 2. The barium pill became lodged in the midesophagus. 3. A web is suggested in the upper esophagus. CXR 07/18/21: 1. Cardiomegaly with pulmonary edema. 2. Small to moderate right pleural effusion with mild right basilar consolidation.
--- NOTE | 2021-07-20 15:38 | Communication Note ---
Date of Service: July 20, [address] Calderon. Will hold coumadin pending further assessment with regards to possible need for invasive procedure/ timing. Outpatient EGD becomes complicated because of she has a long-standing history of rheumatic heart disease and therefore underwent mechanical mitral valve replacement in 1993 receiving a mechanical Medtronic Roe single tilting-disc prosthesis. This valve requires tight anticoagulation to prevent thrombosis. Required inpatient heparin bridge at time of past knee replacement surgery. Check INR tomorrow, will bridge with heparin if INR <2.5. In absence of emergency would avoid administration of vitamin K.
[2021-07-20] MEDS ORDERED: WARFARIN SOD 5 MG TAB PO SCH (16:00)
--- NOTE | 2021-07-20 19:01 | Hospitalist Progress Note ---
Date of Service July 20, 2021 Assessment & Plan Plan: Acute on chronic diastolic CHF -management per cardiology, currently on IV lasix -volume status improved but not back to baseline per patient -will repeat CXR tomorrow Questionable pneumonia vs atelectasis -seen on CTA chest -Clinically does not appear to have pneumonia (no fever, no leukocytosis, negative procalcitonin). Further antibiotics were discontinued Dysphagia to solid food -Appreciate GI input. 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 when she had her video swallow, barium pill became stuck mid esophagus Patient reports cough, yesterday was on 1L NC currently on 2L NC but with with no documentation of hypoxia Physical Exam Physical Exam: Tearful, no acute distress, non toxic Respiratory: Diminished at bases, no wheezing/rhonchi/rales Cardiovascular: Regular rate and rhythm, +systolic murmur Gastrointestinal (Abdomen): Soft, non tender Musculoskeletal: Trace edema Neurologic: Awake, alert, spontaneously moving extremities Results & Data Results & Data ([facility]) Vital Signs (Past 12 Hours) Vital Signs Temp Pulse Resp BP BP Pulse Ox 07/20/21 16:14 36.7 C 83 17 136/73 98 07/20/21 11:08 36.7 C 83 17 145/74 H 100 07/20/21 07:44 91 H 18 97 07/20/21 07:26 36.7 C 76 17 118/70 96 Laboratory Results Short CBC 07/20/21 Range/Units 06:28 WBC 5.02 (4.8-10.8) K/uL Hgb 10.2 L (12.0-16.0) g/dL Hct 32.6 L (37-47) % Plt Count 141 (130-400) K/uL BMP 07/20/21 06:28 Sodium 136 Potassium 3.7 Chloride 99 Carbon Dioxide 28 BUN 20 Creatinine 1.60 H Glucose 103 H Calcium 9.8 Medications Administered Current Inpatient Medications Acetaminophen (Acetaminophen 325 Mg Tab) 650 mg PO Q4H PRN PRN Reason: Pain or Fever Stop: 08/17/21 09:00 Last Admin: 07/19/21 22:37 Dose: 650 mg Documented by: Albuterol (Albuterol Hfa 8 Gm Inhaler) 2 puffs INH Q4H PRN PRN Reason: Shortness Of Breath Or Wheezing Stop: 08/17/21 09:00 Ascorbic Acid (Ascorbic Acid 500 Mg Tab) 500 mg PO DAILY PRISCILA Stop: 08/17/21 09:44 Last Admin: 07/20/21 12:01 Dose: 500 mg Documented by: Benzonatate (Benzonatate 100 Mg Capsule) 100 mg PO TID PRN PRN Reason: Cough Stop: 08/18/21 00:11 Last Admin: 07/20/21 06:04 Dose: 100 mg Documented by: Citalopram Hydrobromide (Citalopram 20 Mg Tab) 10 mg PO DAILY [facility] Stop: 08/17/21 09:59 Last Admin: 07/20/21 12:01 Dose: 10 mg Documented by: Folic Acid (Folic Acid 1 Mg Tab) 1 mg PO QAM [facility] Stop: 08/17/21 09:44 Last Admin: 07/20/21 12:01 Dose: 1 mg Documented by: Furosemide (Furosemide 40 Mg/4 Ml Vial) 40 mg IV BID [facility] Stop: 08/17/21 09:59 Last Admin: 07/20/21 12:01 Dose: 40 mg Documented by: Levalbuterol HCl (Levalbuterol Hcl 1.25 Mg/3 Ml Neb) 1.25 mg NEB Q2H PRN; Protocol PRN Reason: Shortness Of Breath Or Wheezing Stop: 08/17/21 09:00 Last Admin: 07/20/21 07:44 Dose: 1.25 mg Documented by: Levothyroxine Sodium (Levothyroxine Sodium 100 Mcg Tablet) 100 mcg PO DAILYBB [facility] Stop: 08/17/21 09:44 Last Admin: 07/20/21 06:04 Dose: 100 mcg Documented by: Menthol (Cough Drop (Sugar Free) Raúl 24 Raúl/1 Box) 1 raúl BUCCAL PRN PRN PRN Reason: Sore Throat Stop: 08/17/21 23:58 Last Admin: 07/19/21 00:24 Dose: 1 raúl Documented by: Metoclopramide HCl (Metoclopramide Hcl 10 Mg Tablet) 10 mg PO DAILY PRN PRN Reason: Nausea Stop: 08/17/21 23:46 Last Admin: 07/20/21 12:00 Dose: 10 mg Documented by: Metoprolol Tartrate (Metoprolol Tartrate 25 Mg Tab) 12.5 mg PO BID PRISCIL[facility] Stop: 08/17/21 09:44 Last Admin: 07/20/21 12:00 Dose: 12.5 mg Documented by: Nitroglycerin (Nitroglycerin Sl 0.4 Mg/Tab Tab) 0.4 mg SL UD PRN PRN Reason: Chest Pain Stop: 08/17/21 09:00 Pantoprazole Sodium (Pantoprazole 40 Mg Tab) 40 mg PO PM PRISCILA Stop: 08/17/21 20:59 Last Admin: 07/19/21 20:47 Dose: 40 mg Documented by: Polyethylene Glycol (Polyethylene (Miralax) 17 Gm Pack) 17 gm PO DAILY PRN PRN Reason: Constipation Stop: 08/17/21 09:00 Potassium Chloride (Potassium Chloride Crtab 20 Meq Tabcr) 40 meq PO QAM [facility] Stop: 07/22/21 09:01 Last Admin: 07/20/21 11:59 Dose: 40 meq Documented by: Ropinirole HCl (Ropinirole Hcl 2 Mg Tablet) 2 mg PO TID PRISCILA Stop: 08/17/21 09:59 Last Admin: 07/20/21 13:45 Dose: 2 mg Documented by: Rosuvastatin Calcium (Rosuvastatin Calcium 20 Mg Tab) 20 mg PO HS [facility] Stop: 08/17/21 20:59 Last Admin: 07/19/21 20:47 Dose: 20 mg Documented by: Saccharomyces Boulardii (Saccharomyces Boulardii 250 Mg Cap) 250 mg PO DAILY PRISCIL[facility] Stop: 08/19/21 08:59 Last Admin: 07/20/21 12:01 Dose: 250 mg Documented by: Spironolactone (Spironolactone 12.5 Mg Tab) 12.5 mg PO DAILY [facility] Stop: 08/17/21 09:44 Last Admin: 07/20/21 12:00 Dose: 12.5 mg Documented by: Vitamin D (Cholecalciferol 1,000 Units 25 Mcg Tab) 1,000 units PO QAM [facility] Stop: 08/17/21 09:44 Last Admin: 07/20/21 12:00 Dose: 1,000 units Documented by:
[2021-07-20] MEDS: ROSUVASTATIN CALCIUM 20 MG TAB PO SCH (20:44)
[2021-07-20] MEDS: PANTOprazole 40 MG TAB PO SCH (20:44)
[2021-07-21] MEDS: LEVOTHYROXINE SODIUM 100 MCG TABLET PO SCH (05:51)
[2021-07-21] MEDS: CITALOPRAM 20 MG TAB PO SCH (08:09)
[2021-07-21] MEDS: SPIRONOLACTONE 12.5 MG TAB PO SCH (08:09)
[2021-07-21] MEDS: rOPINIRole HCL 2 MG TABLET PO SCH ×3 (08:09→20:16)
[2021-07-21] MEDS: SACCHAROMYCES BOULARDII 250 MG CAP PO SCH (08:09)
--- NOTE | 2021-07-21 08:09 | XRay Report ---
XR chest 1V portable HISTORY: follow up pleural effusion COMPARISON: Chest 07/18/2021. FINDINGS: No pneumothorax. Small right pleural effusion right basilar densities have slightly improve d. Cardiac silhouette remains moderately enlarged. Mild interstitial pulmonary edema has also improve d. Cardiac valve prosthesis and poststernotomy changes are again noted. No new focal lung consolidati ons. IMPRESSION: Interval improvement in the mild interstitial pulmonary edema and small right pleural effusion. ACT 112: Negative or not required by law. Electronically signed by: Darshan Mosquera M.D. 07/21/2021 8:08 AM
[2021-07-21] MEDS: CHOLECALCIFEROL 1,000 UNITS 25 MCG TAB PO SCH (08:10)
[2021-07-21] MEDS: FOLIC ACID 1 MG TAB PO SCH (08:10)
[2021-07-21] MEDS: ASCORBIC ACID 500 MG TAB PO SCH (08:10)
[2021-07-21] MEDS: METOPROLOL TARTRATE 25 MG TAB PO SCH ×2 (08:10→20:15)
[2021-07-21] MEDS: METOCLOPRAMIDE HCL 10 MG TABLET PO PRN (08:10)
[2021-07-21 08:20] LABS: Hematocrit (blood only) 34.7 % (37-47); Hemoglobin 10.7 g/dL (12.0-16.0); Mean Corpuscular Hemoglobin 25.7 pg (25-34); Mean Corpuscular Hgb Conc 30.8 g/dL (32-36); Mean Corpuscular Volume 83.4 fL (80-100); Mean Platelet Volume 11.2 fL (7.4-10.4); Platelet Count 164 K/uL (130-400); RDW Coefficient of Variation 16.3 % (11.5-14.5); Red Blood Count 4.16 M/uL (4.2-5.4); White Blood Count 5.12 K/uL (4.8-10.8)
[2021-07-21] MEDS: FUROSEMIDE 40 MG/4 ML VIAL IV SCH (08:29)
[2021-07-21] MEDS: POTASSIUM CHLORIDE CRTAB 20 MEQ TABCR PO SCH (08:31)
[2021-07-21 08:35] LABS: INR 2.4 (0.9-1.1); Prothrombin Time 24.2 Seconds (9.0-12.0)
[2021-07-21 08:47] LABS: BUN Creatinine Ratio 12.7 (10-20); Creatinine Clr Calc Pharmacy 31.1 ml/min; Est GFR (African American) 44.2 ml/min; Est GFR (Non-African American) 38.1 ml/min; Magnesium 2.1 mg/dl (1.7-2.4); Potassium 3.3 mmol/L (3.5-5.1)
[2021-07-21] MEDS: ACETAMINOPHEN 325 MG TAB PO PRN (10:47)
[2021-07-21] MEDS ORDERED: Heparin IV Adult Wt-Based Standard *NO* Bolus Protocol IV SCH ×2 (11:04→11:27)
[2021-07-21] MEDS ORDERED: POTASSIUM CHLORIDE 20 MEQ/15 ML UDC PO STA (11:05)
--- NOTE | 2021-07-21 11:23 | Cardiology Progress Note ---
Date of Service July 21, 2021 Assessment & Plan (1) Chronic heart failure with preserved ejection fraction (HFpEF): (2) H/O mitral valve replacement with mechanical valve: Plan: INR 2.4 today Potassium 3.3 Patient with history of rheumatic heart disease and therefore underwent mechanical mitral valve replacement in 1993 receiving a mechanical Medtronic Roe single tilting-disc prosthesis. This valve requires tight anticoagulation to prevent thrombosis. Start heparin infusion and allow INR to trend down for EGD as inpatient in a few days. In absence of emergency would avoid administration of vitamin K. Replace potassium. Continue IV furosemide to allow continued even volume status. Patient with left forearm erythema from IV site. Appearance improving with warm compresses. Dr Omari mcnamara 07/22/21. Admission and Anticipated Discharge Date Admission Date: July 18, 2021 Subjective Pt seen in follow up. Ongoing AF with controlled ventricular rate noted on telemetry (chronic finding). Denies shortness of breath. Leg edema is better. Physical Exam Constitutional: WD/WN, vitals as above Respiratory: normal respiratory effort, lungs clear to auscultation Cardiovascular: Rate/Rhythm: + irregularly irregular crisp prosthetic heart sounds noted, edema improved. Gastrointestinal (Abdomen): normal bowel sounds, soft, nontender, no hepatosplenomegaly Skin: left anterior forearm, erythema improving Neurologic: PERRL, EOMI, accommodation nl, no face palsy, no dysarthria Results & Data ([facility]) Vital Signs (Past 12 Hours) Vital Signs Temp Pulse Resp BP Pulse Ox 07/21/21 08:02 36.8 C 74 17 128/66 95 07/21/21 03:12 36.7 C 90 22 130/75 95
[2021-07-21] MEDS ORDERED: HEPARIN SODIUM/DEXTROSE 25,000 UNITS/500 ML BAG IV SCH (11:30)
--- NOTE | 2021-07-21 11:42 | Pulmonary Consultation ---
Date of Consultation July 21, 2021 Assessment & Plan (1) Shortness of breath: (2) Abnormal chest CT: (3) Pleural effusion: (4) Acute bronchitis: CT chest 07/18/2021 personally reviewed: Right-sided pleural effusion Dependent atelectasis of the right lower lobe Cardiomegaly No significant mediastinal lymphadenopathy Chest x-ray 07/21/2021 personally reviewed: Portable film, good respiratory effort, air between the cardiac silhouette and the left diaphragm, increased cardiac silhouette, blunted right costophrenic angle, no clear infiltrate Minimal pulmonary vascular congestion seems to be improved from before --Acute on chronic cough With chest tightness Etiology could be multifactorial Patient does have mechanical mitral valve with large atrium which is associated with cough especially if it presses on the laryngeal nerve Patient has had difficulty swallowing although she denies association with food but I do think that is also playing a part in her cough She did have some wheezing when she was coughing, acute bronchitis with possible underlying asthmatic is also a possibility Patient does have reflux disease which also may be playing a role in her cough --Right-sided pleural effusion with right lower lobe atelectasis Etiology of pleural effusion is most likely cardiac Procalcitonin 0.05 Covid-19 NAAT negative No WBC count BNP 99 Plan: In/out: -2.6 L, urine output 2950 Continue with diuresis for pleural effusion. There is clinical improvement on the chest x-ray done today The right lower lobe changes are most likely atelectasis from the right-sided pleural effusion. Incentive spirometry will be helpful Patient got 3 doses of doxycycline IV. I would like to give her doxycycline as she is complaining of tannish colored phlegm and symptoms goes towards acute bronchitis. P.o. doxycycline to complete total of 5 days. I will also start the patient on budesonide and Brovana nebulized. Flutter valve on as-needed basis No absolute contraindication from pulmonary perspective for patient to undergo EGD Would recommend BiPAP with backup rate post conscious sedation if need be. Case discussed with Dr Calderon. Please note the above document was generated using voice recognition software. It may contain grammatical, syntax or spelling errors.Any formal questions or concerns about the content, text or information contained within the body of this dictation should be directly addressed to the provider for clarification. History of Present Illness Attending Physician: Berny Calderon MD History of Present Illness 65-year-old female presented to the hospital with complaints of shortness of breath Past medical history: Rheumatic heart disease s/p mitral valve placement on warfarin, A. fib, CKD, diabetes type 2, hypothyroidism, HFpEF Pulmonary consulted for abnormal chest CT and preop clearance for EGD Patient came to the hospital because of shortness of breath and cough. Cough has been going on for 2-3 months. Cough is mostly dry with since coming to the hospital she has been bringing up phlegm which is tannish in color Denies any hemoptysis. No fever or chills No dysuria, no diarrhea No hematuria, no hematochezia. No headache, no blurry vision. Social history: Lifetime non-smoker. Social alcohol. No illicit drug use. 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 No birds or poultry nearby Allergies Allergy/AdvReac Type Severity Reaction Status Date / Time hydroxyzine Allergy Severe DYSTONIA Verified 07/18/21 07:32 prochlorperazine Allergy Severe NUCHAL Verified 07/18/21 07:32 DYSTONIA promethazine Allergy Severe NUCHAL Verified 07/18/21 07:32 DYSTONIA oxycodone Allergy Intermediate Numbness Verified 07/18/21 07:32 PERRY Inhibitors AdvReac Intermediate COUGH Verified 07/18/21 07:32 lisinopril AdvReac Intermediate Cough Verified 07/18/21 07:32 metformin AdvReac Intermediate DIARRHEA Verified 07/18/21 07:32 parsley AdvReac Intermediate AGITATION Verified 07/18/21 07:32 tetracycline AdvReac Intermediate DYSPEPSIA Verified 07/18/21 07:32 gabapentin AdvReac Drowsy Verified 07/18/21 07:32 NAUSEA MEDICINES Allergy Unknown SEE NOTE Uncoded 07/18/21 07:32 BELOW Home Medications Medication Instructions Recorded Confirmed Type cholecalciferol (vitamin D3) 25 1,000 unit PO QAM 12/05/17 07/18/21 History mcg (1,000 unit) capsule (Vitamin D3) nitroglycerin 0.4 mg sublingual 0.4 mg SUBLINGUAL DIRECTED PRN 12/05/17 07/18/21 History tablet (Nitrostat) omeprazole 20 mg capsule,delayed 20 mg PO PM 12/05/17 07/18/21 History release furosemide 40 mg tablet 80 mg PO MOWEFRSA 05/18/18 07/18/21 History levothyroxine 100 mcg tablet 100 mcg PO DAILYBB 05/18/18 07/18/21 History folic acid 1 mg tablet 1 mg PO QAM #30 tab 05/21/18 07/18/21 Rx ropinirole 2 mg tablet 2 mg PO TID 10/08/18 07/18/21 History acetaminophen 500 mg tablet 500 mg PO Q6H PRN 12/31/19 07/18/21 History (Tylenol Extra Strength) magnesium hydroxide 400 mg/5 mL 5 ml PO DAILY PRN 12/31/19 07/18/21 History oral suspension (Milk of Magnesia) spironolactone 25 mg tablet 12.5 mg PO DAILY 12/31/19 07/18/21 History furosemide 40 mg tablet 40 mg PO SUTUTH 10/15/20 07/18/21 History rosuvastatin 20 mg tablet 20 mg PO HS 10/15/20 07/18/21 History ascorbic acid (vitamin C) 500 mg 500 mg PO DAILY 03/31/21 07/18/21 History tablet (Vitamin C) metoprolol tartrate 25 mg tablet 12.5 mg PO BID #30 tab 04/09/21 07/18/21 Rx albuterol sulfate 90 mcg/actuation 2 puff INHALATION Q4H PRN 07/18/21 07/18/21 History aerosol inhaler benzonatate 100 mg capsule 100 mg PO TID 07/18/21 07/18/21 History bisacodyl 10 mg rectal suppository [address] DAILY 07/18/21 07/18/21 History citalopram 10 mg tablet 10 mg PO DAILY 07/18/21 07/18/21 History magnesium glycinate 100 mg tablet 0 mg PO DAILY 07/18/21 07/18/21 History metoclopramide HCl 10 mg tablet 10 mg PO DAILY PRN 07/18/21 07/18/21 History sennosides 17.2 mg tablet 17.2 mg PO HS PRN 07/18/21 07/18/21 History tramadol 50 mg tablet 50 mg PO TID PRN 07/18/21 07/18/21 History warfarin 5 mg tablet 5 mg PO DIRECTED 07/18/21 07/18/21 History Patient History Medical History A-fib Anemia chronic; baseline hgb 9-10 range per chart review Anxiety CKD (chronic kidney disease), stage III Diabetes diet controlled GERD (gastroesophageal reflux disease) controlled History of blood transfusion autologous s/p MVR (1993), 09/2018 (post-op) HTN (hypertension) Hx of myocardial infarction 2000, medical management Hyperlipidemia Hypothyroidism Migraines 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 migraine vs. stress related)-- plavix since discontinued Surgical History H/O radioactive iodine thyroid ablation H/O: hysterectomy History of cardiac cath 2000= NO STENTS History of colonoscopy History of tonsillectomy and adenoidectomy History of total left knee replacement Hx of appendectomy Hx of cholecystectomy Hx of mitral valve replacement 1993 (rheumatic valvular disease) Hx of tubal ligation Family History Uncle , of [place] in his 40s Coronary heart disease Social History Smoking Status: Never smoker Second Hand Exposure: No; Do You Dip or Chew Tobacco: No; Tobacco Cessation Education Requested by Patient: No Hx Alcohol Use: Yes Alcohol type: wine Hx Substance Use: No Preferred Language: Thai Communication Ability: Effective Tool Builder Required: No Beliefs That Will Affect Care: None marital status: Single Current Living Situation: Alone Current Living Situation Comment: takes care of mother current occupational status: disabled How many Children do You have: 0 Other Information That Helps Us Care for You: No Feels Safe at Home: Yes Safety Concerns: Feels Safe At This Time Assistive Devices: Cane and Walker Assistive Devices Comment: walker at night, cane during the day Review of Systems Review of Systems: All systems reviewed & are unremarkable except as noted in HPI & below Physical Exam Physical Exam: Constitutional: No acute distress HEENT: EOMI, PERRLA Respiratory system: Good air entry bilaterally, no wheeze, no rhonchi, mild crackles bilateral lower lobes CVS: S1-S2 positive, positive mechanical heart sounds at apex Abdomen: Soft, nontender, nondistended, positive bowel sounds x4 Extremities: +2 pulses bilaterally radialis/ dorsalis pedis, no cyanosis, no edema Neuro: Awake alert oriented x3 Psych: Normal mood and affect G/U: No Panda Skin: no rashes, warm and dry Lymphatic: no cervical or axillary lymphadenopathy Results & Data Results & Data ([facility]) Vital Signs (Past 12 Hours) Vital Signs Temp Pulse Resp BP Pulse Ox 07/21/21 08:02 36.8 C 74 17 128/66 95 07/21/21 03:12 36.7 C 90 22 130/75 95 Laboratory Results 07/21/21 07:20 07/21/21 07:20 PG Care Time/CCT Total # of Minutes Spent Total Time Spent with Patient: Total time spent is greater than 50% in coordination of care (as documented) at patient's floor/unit and/or counseling patient: Coding Level of Care Code 58328 Initial Inpt Care Lvl 3 Diagnoses Shortness of breath R06.[address] R93.89 Pleural effusion J90 Acute bronchitis J20.9
--- NOTE | 2021-07-21 11:51 | Gastroenterology Progress Note ---
Date of Service July 21, 2021 Assessment & Plan (1) Dysphagia: Plan: 65-year-old with dysphagia likely oropharyngeal, likely also has some esophageal dysmotility and may have an esophageal web. Plan: Optimize respiratory status. Hold warfarin. Plan for EGD on Saturday. N.p.o. after midnight on Saturday. Admission and Anticipated Discharge Date Admission Date: July 18, 2021 Supervising Physician Co-Signing Physician Notes Attending attestation I have seen, examined this patient, and agree with the findings and above by our mid-level provider SOFI Cintron, with the following additions: Patient with improved pulmonary status with diuresis, less cough and appears more comfortable, INR is 2.4 today. Swallowing is told to me mildly improved Given mechanical heart valve, will plan on EGD on saturday. Heparin gtt as a bridge and stop 6 hrs prior to EGD (hold around 2 am on Saturday Morn) Still likely motility issue, but will r/o luminal issues Subjective 65 yr old female with dysphagia. Also w significant cough. Pt insisting on EGD prior to DC. Says there is "something wrong there," pointing to the base of her neck. Barium swallow w silent aspiration. Pt throat clearing (typical symptoms of oropharyngeal dysphagia). Review of Systems Review of Systems: ROS: Gen: + weakness; no fevers Eyes: No eye redness, or pain, no recent vision changes Resp: + severe cough Cardio: No palpitations, no chest pain GI: No abdominal pain, no nausea/vomiting : Denies pain on urination Skin: No jaundice, itching or new rashes A total of 12 systems were reviewed, all others (-). Physical Exam Constitutional: well developed, + ill appearing, + thin and cooperative Eyes: PERRL, conjunctivae normal, anicteric sclerae Cardiovascular: RRR, no murmur, no edema Gastrointestinal (Abdomen): normal bowel sounds, soft, nontender, no hepatosplenomegaly Skin: no rashes, warm and dry normal turgor Neurologic: PERRL, EOMI, accommodation nl, no face palsy, no dysarthria awake; not confused Psychiatric: A+Ox3, euthymic affect Orientation: alert, oriented x 3 and cooperative Results & Data ([facility]) Vital Signs (Past 12 Hours) Vital Signs Temp Pulse Resp BP Pulse Ox 07/21/21 08:02 36.8 C 74 17 128/66 95 07/21/21 03:12 36.7 C 90 22 130/75 95 Laboratory Results WBC 5, Hb 10, HCT 34, PLT S164, INR 2.4, NA 136, K3.3, CL 98, CO2 32, BUN 18, CR 1.42. Diagnostic Findings Barium esophagram 07/20/2021: 1. Silent aspiration was observed during the examination. 2. The barium pill became lodged in the midesophagus. 3. A web is suggested in the upper esophagus.
[2021-07-21] MEDS: HEPARIN SODIUM/DEXTROSE 25,000 UNITS/500 ML BAG IV SCH (12:32)
--- NOTE | 2021-07-21 12:47 | Hospitalist Progress Note ---
Date of Service July 21, 2021 Assessment & Plan Plan: Acute on chronic diastolic CHF -management per cardiology, currently on IV lasix -volume status improved -CXR improved pleural effusion Questionable pneumonia vs atelectasis -seen on CTA chest -Clinically does not appear to have pneumonia (no fever, no leukocytosis, negative procalcitonin). Further antibiotics were discontinued -repeat CXR today shows improved pleural effusion, residual atelectasis -Will ask for Pulmonology consultation for clearance for EGD planned for early next week Dysphagia to solid food -Appreciate GI input.Plan for EGD early next week Hypokalemia -repleted Hyponatremia -mild, monitor for now Mechanical mitral Valve A fib on coumadin Supratherapeutic INR -Goal INR 2.5-3.5 -continue metoprolol 12.5mg BID -Hold coumadin for EGD next week. Avoid reversal of INR due to high risk for stroke with type of mechanical Mitral valve -INR 2.4 today, start heparin drip DVT ppx -Heparin drip Admission and Anticipated Discharge Date Admission Date: July 18, 2021 Subjective Cough has subsided somewhat. Weaned to room air today. leg swelling improved Physical Exam Physical Exam: Appears well, no acute distress Respiratory: Lungs are clear, no wheezing/rhonchi/rales Cardiovascular: +systolic murmur Gastrointestinal (Abdomen): soft, non tender Musculoskeletal: Trace edema Neurologic: awake, alert, spontaneously moving extremities Results & Data Results & Data ([facility]) Vital Signs (Past 12 Hours) Vital Signs Temp Pulse Resp BP Pulse Ox 07/21/21 11:53 36.5 C 80 18 127/69 94 07/21/21 08:02 36.8 C 74 17 128/66 95 07/21/21 03:12 36.7 C 90 22 130/75 95 Laboratory Results Short CBC 07/21/21 Range/Units 07:20 WBC 5.12 (4.8-10.8) K/uL Hgb 10.7 L (12.0-16.0) g/dL Hct 34.7 L (37-47) % Plt Count 164 (130-400) K/uL BMP 07/21/21 07:20 Sodium 136 Potassium 3.3 L Chloride 98 Carbon Dioxide 32 BUN 18 Creatinine 1.42 H Glucose 92 Calcium 10.0 Medications Administered Current Inpatient Medications Acetaminophen (Acetaminophen 325 Mg Tab) 650 mg PO Q4H PRN PRN Reason: Pain or Fever Stop: 08/17/21 09:00 Last Admin: 07/21/21 10:47 Dose: 650 mg Documented by: Albuterol (Albuterol Hfa 8 Gm Inhaler) 2 puffs INH Q4H PRN PRN Reason: Shortness Of Breath Or Wheezing Stop: 08/17/21 09:00 Ascorbic Acid (Ascorbic Acid 500 Mg Tab) 500 mg PO DAILY PRISCILA Stop: 08/17/21 09:44 Last Admin: 07/21/21 08:10 Dose: 500 mg Documented by: Benzonatate (Benzonatate 100 Mg Capsule) 100 mg PO TID PRN PRN Reason: Cough Stop: 08/18/21 00:11 Last Admin: 07/20/21 20:49 Dose: 100 mg Documented by: Citalopram Hydrobromide (Citalopram 20 Mg Tab) 10 mg PO DAILY PRISCILA Stop: 08/17/21 09:59 Last Admin: 07/21/21 08:09 Dose: 10 mg Documented by: Folic Acid (Folic Acid 1 Mg Tab) 1 mg PO QAM [facility] Stop: 08/17/21 09:44 Last Admin: 07/21/21 08:10 Dose: 1 mg Documented by: Furosemide (Furosemide 40 Mg/4 Ml Vial) 40 mg IV DAILY [facility] Stop: 08/21/21 08:59 Heparin Sodium/Dextrose (Heparin Sodium/Dextrose) 25,000 units in 500 mls @ 18 mls/hr IV .Q24H PRISCILA; Protocol Stop: 08/20/21 11:44 Last Admin: 07/21/21 12:32 Dose: 900 units/hr, 18 mls/hr Documented by: Levalbuterol HCl (Levalbuterol Hcl 1.25 Mg/3 Ml Neb) 1.25 mg NEB Q2H PRN; Protocol PRN Reason: Shortness Of Breath Or Wheezing Stop: 08/17/21 09:00 Last Admin: 07/20/21 07:44 Dose: 1.25 mg Documented by: Levothyroxine Sodium (Levothyroxine Sodium 100 Mcg Tablet) 100 mcg PO DAILYBB [facility] Stop: 08/17/21 09:44 Last Admin: 07/21/21 05:51 Dose: 100 mcg Documented by: Menthol (Cough Drop (Sugar Free) Raúl 24 Raúl/1 Box) 1 raúl BUCCAL PRN PRN PRN Reason: Sore Throat Stop: 08/17/21 23:58 Last Admin: 07/19/21 00:24 Dose: 1 raúl Documented by: Metoclopramide HCl (Metoclopramide Hcl 10 Mg Tablet) 10 mg PO DAILY PRN PRN Reason: Nausea Stop: 08/17/21 23:46 Last Admin: 07/21/21 08:10 Dose: 10 mg Documented by: Metoprolol Tartrate (Metoprolol Tartrate 25 Mg Tab) 12.5 mg PO BID PRISCILA Stop: 08/17/21 09:44 Last Admin: 07/21/21 08:10 Dose: 12.5 mg Documented by: Nitroglycerin (Nitroglycerin Sl 0.4 Mg/Tab Tab) 0.4 mg SL UD PRN PRN Reason: Chest Pain Stop: 08/17/21 09:00 Pantoprazole Sodium (Pantoprazole 40 Mg Tab) 40 mg PO PM PRISCILA Stop: 08/17/21 20:59 Last Admin: 07/20/21 20:44 Dose: 40 mg Documented by: Polyethylene Glycol (Polyethylene (Miralax) 17 Gm Pack) 17 gm PO DAILY PRN PRN Reason: Constipation Stop: 08/17/21 09:00 Potassium Chloride (Potassium Chloride Crtab 20 Meq Tabcr) 40 meq PO QAM PRISCILA Stop: 07/22/21 09:01 Last Admin: 07/21/21 08:31 Dose: 40 meq Documented by: Ropinirole HCl (Ropinirole Hcl 2 Mg Tablet) 2 mg PO TID PRISCILA Stop: 08/17/21 09:59 Last Admin: 07/21/21 08:09 Dose: 2 mg Documented by: Rosuvastatin Calcium (Rosuvastatin Calcium 20 Mg Tab) 20 mg PO HS PRISCILA Stop: 08/17/21 20:59 Last Admin: 07/20/21 20:44 Dose: 20 mg Documented by: Saccharomyces Boulardii (Saccharomyces Boulardii 250 Mg Cap) 250 mg PO DAILY PRISCILA Stop: 08/19/21 08:59 Last Admin: 07/21/21 08:09 Dose: 250 mg Documented by: Spironolactone (Spironolactone 12.5 Mg Tab) 12.5 mg PO DAILY PRISCILA Stop: 08/17/21 09:44 Last Admin: 07/21/21 08:09 Dose: 12.5 mg Documented by: Vitamin D (Cholecalciferol 1,000 Units 25 Mcg Tab) 1,000 units PO [facility] Stop: 08/17/21 09:44 Last Admin: 07/21/21 08:10 Dose: 1,000 units Documented by:
[2021-07-21 19:25] LABS: Partial Thromboplastin Ratio 4.4
[2021-07-21 19:36] LABS: Partial Thromboplastin Time 122.1 Seconds (21.0-31.0)
[2021-07-21] MEDS: ARFORMOTEROL TART 15MCG/2ML VIAL INH SCH (19:59)
[2021-07-21] MEDS: DOXYCYCLINE HYCLATE 100 MG CAP PO SCH (20:15)
[2021-07-21] MEDS: ROSUVASTATIN CALCIUM 20 MG TAB PO SCH (20:16)
[2021-07-21] MEDS: PANTOprazole 40 MG TAB PO SCH (20:16)
[2021-07-22 04:49] LABS: Hematocrit (blood only) 33.6 % (37-47); Hemoglobin 10.2 g/dL (12.0-16.0); Mean Corpuscular Hemoglobin 25.4 pg (25-34); Mean Corpuscular Hgb Conc 30.4 g/dL (32-36); Mean Corpuscular Volume 83.8 fL (80-100); Mean Platelet Volume 10.7 fL (7.4-10.4); Platelet Count 162 K/uL (130-400); Red Blood Count 4.01 M/uL (4.2-5.4); White Blood Count 5.17 K/uL (4.8-10.8)
[2021-07-22 04:51] LABS: BUN Creatinine Ratio 13.5 (10-20); Calcium 9.8 mg/dl (8.5-10.1); Creatinine Clr Calc Pharmacy 28.3 ml/min; Est GFR (African American) 39.4 ml/min; Potassium 3.5 mmol/L (3.5-5.1)
[2021-07-22 04:59] LABS: INR 1.8 (0.9-1.1); Prothrombin Time 18.8 Seconds (9.0-12.0)
[2021-07-22 05:12] LABS: Partial Thromboplastin Time 81.7 Seconds (21.0-31.0)
[2021-07-22] MEDS: LEVOTHYROXINE SODIUM 100 MCG TABLET PO SCH (05:47)
[2021-07-22] MEDS: ARFORMOTEROL TART 15MCG/2ML VIAL INH SCH (08:26)
[2021-07-22] MEDS ORDERED: FLUTICASONE FUROATE 100MCG 14 PUFFS/INHALER INH SCH (09:00)
[2021-07-22] MEDS: ASCORBIC ACID 500 MG TAB PO SCH (09:04)
[2021-07-22] MEDS: CITALOPRAM 20 MG TAB PO SCH (09:05)
[2021-07-22] MEDS: CHOLECALCIFEROL 1,000 UNITS 25 MCG TAB PO SCH (09:05)
[2021-07-22] MEDS: DOXYCYCLINE HYCLATE 100 MG CAP PO SCH ×2 (09:06→21:15)
[2021-07-22] MEDS: FOLIC ACID 1 MG TAB PO SCH (09:07)
[2021-07-22] MEDS: FUROSEMIDE 40 MG/4 ML VIAL IV SCH (09:08)
[2021-07-22] MEDS: POTASSIUM CHLORIDE CRTAB 20 MEQ TABCR PO SCH (09:08)
[2021-07-22] MEDS: rOPINIRole HCL 2 MG TABLET PO SCH ×3 (09:10→21:15)
[2021-07-22] MEDS: SACCHAROMYCES BOULARDII 250 MG CAP PO SCH (09:11)
[2021-07-22] MEDS: SPIRONOLACTONE 12.5 MG TAB PO SCH (09:11)
[2021-07-22] MEDS: METOPROLOL TARTRATE 25 MG TAB PO SCH ×2 (09:12→21:18)
--- NOTE | 2021-07-22 11:33 | Pulmonology Progress Note ---
Date of Service July 22, 2021 Assessment & Plan (1) Shortness of breath: (2) Abnormal chest CT: (3) Pleural effusion: (4) Acute bronchitis: Plan: CT chest 07/18/2021 personally reviewed: Right-sided pleural effusion Dependent atelectasis of the right lower lobe Cardiomegaly No significant mediastinal lymphadenopathy Chest x-ray 07/21/2021 personally reviewed: Portable film, good respiratory effort, air between the cardiac silhouette and the left diaphragm, increased cardiac silhouette, blunted right costophrenic angle, no clear infiltrate Minimal pulmonary vascular congestion seems to be improved from before --Acute on chronic cough With chest tightness Etiology could be multifactorial Patient does have mechanical mitral valve with large atrium which is associated with cough especially if it presses on the laryngeal nerve Patient has had difficulty swallowing although she denies association with food but I do think that is also playing a part in her cough She did have some wheezing when she was coughing, acute bronchitis with possible underlying asthmatic is also a possibility --> continue with budesonide and formoterol nebulized along with DuoNebs Patient does have reflux disease which also may be playing a role in her cough --Right-sided pleural effusion with right lower lobe atelectasis Etiology of pleural effusion is most likely cardiac Procalcitonin 0.05 Covid-19 NAAT negative No WBC count BNP 99 Plan: In/out: -2.6 L, urine output 2950 Continue with antibiotic, inhaled bronchodilator Flutter valve on as-needed basis No absolute contraindication from pulmonary perspective for patient to undergo EGD Would recommend BiPAP with backup rate post conscious sedation if need be. Please note the above document was generated using voice recognition software. It may contain grammatical, syntax or spelling errors.Any formal questions or concerns about the content, text or information contained within the body of this dictation should be directly addressed to the provider for clarification. Admission and Anticipated Discharge Date Admission Date: July 18, 2021 Subjective Patient seen and examined at bedside. No acute distress, no adverse events overnight Patient has been coughing and bringing up more phlegm Overall she says she is feeling better Denies any chest pain, no headache, no blurry vision Review of Systems Review of Systems: All systems reviewed & are unremarkable except as noted in Subjective Physical Exam Physical Exam: Constitutional: No acute distress HEENT: EOMI, PERRLA Respiratory system: Good air entry bilaterally, no rhonchi, mild crackles bilateral lower lobes, positive expiratory wheeze CVS: S1-S2 positive, positive mechanical heart sounds at apex Abdomen: Soft, nontender, nondistended, positive bowel sounds x4 Extremities: +2 pulses bilaterally radialis/ dorsalis pedis, no cyanosis, no edema Neuro: Awake alert oriented x3 Psych: Normal mood and affect G/U: No Panda Skin: no rashes, warm and dry Lymphatic: no cervical or axillary lymphadenopathy Results & Data Results & Data ([facility]) Vital Signs (Past 12 Hours) Vital Signs Temp Pulse Resp BP Pulse Ox 07/22/21 08:30 87 16 97 07/22/21 08:27 36.7 C 77 19 118/65 93 07/22/21 04:11 36.8 C 78 18 113/59 L 95 07/21/21 23:55 37.0 C 81 17 120/61 96 Laboratory Results 07/22/21 03:52 07/22/21 03:52 PG Care Time/CCT Total # of Minutes Spent Total Time Spent with Patient: Total time spent is greater than 50% in coordination of care (as documented) at patient's floor/unit and/or counseling patient: Coding Level of Care Code 38446 Subseq Hosp Care Lvl 2 Diagnoses Shortness of breath R06.[address] R93.89 Pleural effusion J90 Acute bronchitis J20.9
[2021-07-22] MEDS: BUDESONIDE 0.25 MG/2 ML VIAL (PULMICORT) INH SCH ×2 (11:46→19:47)
[2021-07-22] MEDS: HEPARIN SODIUM/DEXTROSE 25,000 UNITS/500 ML BAG IV SCH (12:11)
[2021-07-22] MEDS: ALBUT/IPRATROP 3MG/0.5MG NEB 3 ML VIAL NEB SCH ×2 (14:19→23:06)
--- NOTE | 2021-07-22 15:25 | Cardiology Progress Note ---
Date of Service July 22, 2021 Assessment & Plan (1) Chronic heart failure with preserved ejection fraction (HFpEF): (2) H/O mitral valve replacement with mechanical valve: Plan: Hold warfarin in anticipation of EGD. Continue IV heparin bridging. Goal INR 3.0-3.5. Patient with history of chronic heart failure with preserved ejection fraction. Rales noted on exam. Recommend additional dose of IV furosemide this afternoon to optimize cardiovascular status. Her outpatient dose of furosemide is 40 mg alternating with 80 mg. Continue to follow daily weight, fluid balance, GFR, and electrolytes. Admission and Anticipated Discharge Date Admission Date: July 18, 2021 Subjective Patient seen and examined at the bedside. Notes sinus congestion and nonproductive cough. Prescribed a steroid inhaler. Voices concern that the inhaler may affect her INR. No orthopnea or PND. Lower extremity edema controlled. Reports few episodes of worsening edema dating back 2-3 weeks. No chest discomfort or palpitations. Telemetry reveals atrial fibrillation in the 70s. Fluid balance -647 cc. Review of Systems Review of Systems: All systems reviewed & are unremarkable except as noted in Subjective Physical Exam Constitutional: well developed and well nourished; no acute distress Respiratory: normal respiratory effort; no respiratory distress and no labored breathing Auscultation: + rales (Bases bilateral); no rhonchi and no wheezes Cardiovascular: Rate/Rhythm: + irregularly irregular Heart Sounds: normal S1, normal S2 and + murmur (2/6 Holosystolic murmur, crisp valve closure click auscultated.) Vessels: radial pulses present; no JVD and no carotid bruit Extremities: no edema Gastrointestinal (Abdomen): Inspection/Auscultation: abdomen normal to inspection and normal bowel sounds; abdomen not distended Percussion/Palpation: abdomen soft; abdomen nontender, no guarding and abdomen not rigid Neurologic: CN's II-XI intact bilaterally and moves all extremities; no focal motor deficits Psychiatric: A+Ox3, euthymic affect Results & Data ([facility]) Vital Signs (Past 12 Hours) Vital Signs Temp Pulse Pulse Resp BP Pulse Ox 07/22/21 14:24 77 16 96 07/22/21 12:19 36.7 C 67 18 118/66 96 07/22/21 11:48 90 16 98 07/22/21 08:30 87 16 97 07/22/21 08:27 36.7 C 77 19 118/65 93 07/22/21 08:00 83 07/22/21 04:11 36.8 C 78 18 113/59 L 95
[2021-07-22] MEDS ORDERED: FUROSEMIDE 40 MG/4 ML VIAL IV ONE (16:15)
[2021-07-22 17:27] LABS: Partial Thromboplastin Ratio 2.4
[2021-07-22 17:30] LABS: Partial Thromboplastin Time 67.2 Seconds (21.0-31.0)
--- NOTE | 2021-07-22 17:59 | Hospitalist Progress Note ---
Date of Service July 22, 2021 Assessment & Plan Plan: Acute on chronic diastolic CHF -management per cardiology, currently on IV lasix 40mg daily (reduced from BID), d/w Cardiology will give extra lasix 40mg IV once now -volume status improved -CXR 07/21 improved pleural effusion Questionable pneumonia vs atelectasis -seen on CTA chest -Clinically does not appear to have pneumonia (no fever, no leukocytosis, negative procalcitonin). Further antibiotics were discontinued -appreciate Pulmonology input, started doxycycline to finish 5 day course for bronchitis Dysphagia to solid food -Appreciate GI input.Plan for EGD early next week Hypokalemia -repleted Hyponatremia -mild, monitor for now Mechanical mitral Valve A fib on coumadin Supratherapeutic INR -Goal INR 3-3.5 -continue metoprolol 12.5mg BID -Hold coumadin for EGD next week. Avoid reversal of INR due to high risk for stroke with type of mechanical Mitral valve -currently on heparin drip DVT ppx -Heparin drip Admission and Anticipated Discharge Date Admission Date: July 18, 2021 Subjective Feels more short of breath today. "I don't feel as great as I did yesterday" Physical Exam Physical Exam: Observed ambulating from rest room to bed with no difficulty, appears more tired and less energetic today Respiratory: diminished at bases, no wheezing/rhonchi Cardiovascular: +systolic murmur, regular rate and rhythm Gastrointestinal (Abdomen): soft, non tender Musculoskeletal: trace edema Neurologic: awake, alert, spontaneously moving extremities Results & Data Results & Data ([facility]) Vital Signs (Past 12 Hours) Vital Signs Temp Pulse Pulse Resp BP Pulse Ox 07/22/21 16:11 36.6 C 82 18 121/67 97 07/22/21 15:54 37.1 C 90 18 109/53 L 93 07/22/21 14:24 77 16 96 07/22/21 14:18 77 07/22/21 12:19 36.7 C 67 18 118/66 96 07/22/21 11:48 90 16 98 07/22/21 08:30 87 16 97 07/22/21 08:27 36.7 C 77 19 118/65 93 07/22/21 08:00 83 Laboratory Results Short CBC 07/22/21 Range/Units 03:52 WBC 5.17 (4.8-10.8) K/uL Hgb 10.2 L (12.0-16.0) g/dL Hct 33.6 L (37-47) % Plt Count 162 (130-400) K/uL [facility] 07/22/21 03:52 Sodium 135 L Potassium 3.5 Chloride 99 Carbon Dioxide 29 BUN 21 Creatinine 1.56 H Glucose 113 H Calcium 9.8 Medications Administered Current Inpatient Medications Acetaminophen (Acetaminophen 325 Mg Tab) 650 mg PO Q4H PRN PRN Reason: Pain or Fever Stop: 08/17/21 09:00 Last Admin: 07/21/21 10:47 Dose: 650 mg Documented by: Albuterol (Albuterol Hfa 8 Gm Inhaler) 2 puffs INH Q4H PRN PRN Reason: Shortness Of Breath Or Wheezing Stop: 08/17/21 09:00 Albuterol (Albut/Ipratrop 3mg/0.5mg Neb 3 Ml Vial) 3 ml NEB Q8R [facility]; Protocol Stop: 08/21/21 14:59 Last Admin: 07/22/21 14:19 Dose: 3 ml Documented by: Ascorbic Acid (Ascorbic Acid 500 Mg Tab) 500 mg PO DAILY [facility] Stop: 08/17/21 09:44 Last Admin: 07/22/21 09:04 Dose: 500 mg Documented by: Benzonatate (Benzonatate 100 Mg Capsule) 100 mg PO TID PRN PRN Reason: Cough Stop: 08/18/21 00:11 Last Admin: 07/20/21 20:49 Dose: 100 mg Documented by: Budesonide (Budesonide 0.25 Mg/2 Ml Vial (Pulmicort)) 0.25 mg INH BIDR [facility] Stop: 08/21/21 11:59 Last Admin: 07/22/21 11:46 Dose: 0.25 mg Documented by: Citalopram Hydrobromide (Citalopram 20 Mg Tab) 10 mg PO DAILY [facility] Stop: 08/17/21 09:59 Last Admin: 07/22/21 09:05 Dose: 10 mg Documented by: Doxycycline Hyclate (Doxycycline Hyclate 100 Mg Cap) 100 mg PO BID [facility]; Protocol Stop: 07/24/21 21:01 Last Admin: 07/22/21 09:06 Dose: 100 mg Documented by: Folic Acid (Folic Acid 1 Mg Tab) 1 mg PO QAM [facility] Stop: 08/17/21 09:44 Last Admin: 07/22/21 09:07 Dose: 1 mg Documented by: Formoterol Fumarate (Formoterol 20 Mcg/2 Ml Vial) 20 mcg INH BIDR [facility]; Protocol Stop: 08/21/21 18:59 Furosemide (Furosemide 40 Mg/4 Ml Vial) 40 mg IV DAILY [facility] Stop: 08/21/21 08:59 Last Admin: 07/22/21 09:08 Dose: 40 mg Documented by: Heparin Sodium/Dextrose (Heparin Sodium/Dextrose) 25,000 units in 500 mls @ 12 mls/hr IV .Q24H [facility]; Protocol Stop: 08/20/21 11:44 Last Titration: 07/22/21 17:31 Dose: 600 units/hr, 12 mls/hr Documented by: Levalbuterol HCl (Levalbuterol Hcl 1.25 Mg/3 Ml Neb) 1.25 mg NEB Q2H PRN; Protocol PRN Reason: Shortness Of Breath Or Wheezing Stop: 08/17/21 09:00 Last Admin: 07/20/21 07:44 Dose: 1.25 mg Documented by: Levothyroxine Sodium (Levothyroxine Sodium 100 Mcg Tablet) 100 mcg PO DAILYBB [facility] Stop: 08/17/21 09:44 Last Admin: 07/22/21 05:47 Dose: 100 mcg Documented by: Menthol (Cough Drop (Sugar Free) Raúl 24 Raúl/1 Box) 1 raúl BUCCAL PRN PRN PRN Reason: Sore Throat Stop: 08/17/21 23:58 Last Admin: 07/19/21 00:24 Dose: 1 raúl Documented by: Metoclopramide HCl (Metoclopramide Hcl 10 Mg Tablet) 10 mg PO DAILY PRN PRN Reason: Nausea Stop: 08/17/21 23:46 Last Admin: 07/21/21 08:10 Dose: 10 mg Documented by: Metoprolol Tartrate (Metoprolol Tartrate 25 Mg Tab) 12.5 mg PO BID [facility] Stop: 08/17/21 09:44 Last Admin: 07/22/21 09:12 Dose: 12.5 mg Documented by: Nitroglycerin (Nitroglycerin Sl 0.4 Mg/Tab Tab) 0.4 mg SL UD PRN PRN Reason: Chest Pain Stop: 08/17/21 09:00 Last Admin: 07/22/21 16:12 Dose: 0.4 mg Documented by: Pantoprazole Sodium (Pantoprazole 40 Mg Tab) 40 mg PO PM [facility] Stop: 08/17/21 20:59 Last Admin: 07/21/21 20:16 Dose: 40 mg Documented by: Polyethylene Glycol (Polyethylene (Miralax) 17 Gm Pack) 17 gm PO DAILY PRN PRN Reason: Constipation Stop: 08/17/21 09:00 Ropinirole HCl (Ropinirole Hcl 2 Mg Tablet) 2 mg PO TID [facility] Stop: 08/17/21 09:59 Last Admin: 07/22/21 14:20 Dose: 2 mg Documented by: Rosuvastatin Calcium (Rosuvastatin Calcium 20 Mg Tab) 20 mg PO HS [facility] Stop: 08/17/21 20:59 Last Admin: 07/21/21 20:16 Dose: 20 mg Documented by: Saccharomyces Boulardii (Saccharomyces Boulardii 250 Mg Cap) 250 mg PO DAILY [facility] Stop: 08/19/21 08:59 Last Admin: 07/22/21 09:11 Dose: 250 mg Documented by: Spironolactone (Spironolactone 12.5 Mg Tab) 12.5 mg PO DAILY [facility] Stop: 08/17/21 09:44 Last Admin: 07/22/21 09:11 Dose: 12.5 mg Documented by: Vitamin D (Cholecalciferol 1,000 Units 25 Mcg Tab) 1,000 units PO QAM [facility] Stop: 08/17/21 09:44 Last Admin: 07/22/21 09:05 Dose: 1,000 units Documented by:
[2021-07-22] MEDS: FORMOTEROL 20 MCG/2 ML VIAL INH SCH (19:48)
[2021-07-22] MEDS: ROSUVASTATIN CALCIUM 20 MG TAB PO SCH (21:15)
[2021-07-22] MEDS: PANTOprazole 40 MG TAB PO SCH (21:16)
[2021-07-23 00:19] LABS: Partial Thromboplastin Time 54.6 Seconds (21.0-31.0)
[2021-07-23] MEDS: HEPARIN SODIUM/DEXTROSE 25,000 UNITS/500 ML BAG IV SCH (02:17)
[2021-07-23] MEDS: LEVALBUTEROL HCL 1.25 MG/3 ML NEB NEB PRN (03:40)
[2021-07-23] MEDS: BENZONATATE 100 MG CAPSULE PO PRN ×2 (04:27→21:42)
[2021-07-23] MEDS: LEVOTHYROXINE SODIUM 100 MCG TABLET PO SCH (05:21)
[2021-07-23] MEDS: guaiFENesin 600 MG TABCR PO SCH ×2 (05:21→20:22)
[2021-07-23 06:42] LABS: Hemoglobin 10.7 g/dL (12.0-16.0); Mean Corpuscular Hgb Conc 30.6 g/dL (32-36); Mean Platelet Volume 10.8 fL (7.4-10.4); Platelet Count 167 K/uL (130-400); RDW Standard Deviation 50.4 fL (36.4-46.3); Red Blood Count 4.12 M/uL (4.2-5.4); White Blood Count 5.93 K/uL (4.8-10.8)
[2021-07-23 07:01] LABS: INR 1.4 (0.9-1.1); Prothrombin Time 14.6 Seconds (9.0-12.0)
[2021-07-23 07:06] LABS: BUN Creatinine Ratio 13.6 (10-20); Calcium 9.9 mg/dl (8.5-10.1); Creatinine Clr Calc Pharmacy 27.8 ml/min; Est GFR (African American) 40.1 ml/min; Est GFR (Non-African American) 34.6 ml/min; Magnesium 2.1 mg/dl (1.7-2.4); Potassium 3.7 mmol/L (3.5-5.1)
[2021-07-23] MEDS: BUDESONIDE 0.25 MG/2 ML VIAL (PULMICORT) INH SCH ×2 (07:09→20:02)
[2021-07-23] MEDS: ALBUT/IPRATROP 3MG/0.5MG NEB 3 ML VIAL NEB SCH ×3 (07:09→23:10)
[2021-07-23] MEDS: ASCORBIC ACID 500 MG TAB PO SCH (08:18)
[2021-07-23] MEDS: CHOLECALCIFEROL 1,000 UNITS 25 MCG TAB PO SCH (08:19)
[2021-07-23] MEDS: DOXYCYCLINE HYCLATE 100 MG CAP PO SCH ×2 (08:19→20:22)
[2021-07-23] MEDS: rOPINIRole HCL 2 MG TABLET PO SCH ×3 (08:20→20:22)
[2021-07-23] MEDS: SPIRONOLACTONE 12.5 MG TAB PO SCH (08:20)
[2021-07-23] MEDS: CITALOPRAM 20 MG TAB PO SCH (08:21)
[2021-07-23] MEDS: SACCHAROMYCES BOULARDII 250 MG CAP PO SCH (08:22)
[2021-07-23] MEDS: FOLIC ACID 1 MG TAB PO SCH (08:22)
[2021-07-23] MEDS: METOPROLOL TARTRATE 25 MG TAB PO SCH ×2 (08:23→20:22)
[2021-07-23] MEDS: FUROSEMIDE 40 MG/4 ML VIAL IV SCH (08:24)
[2021-07-23 08:35] LABS: Troponin I High Sensitivity 8.7 pg/ml (0-14)
--- NOTE | 2021-07-23 08:47 | Pulmonology Progress Note ---
Date of Service July 23, 2021 Assessment & Plan (1) Shortness of breath: (2) Abnormal chest CT: (3) Pleural effusion: (4) Acute bronchitis: (5) Asthmatic bronchitis: Plan: CT chest 07/18/2021 personally reviewed: Right-sided pleural effusion Dependent atelectasis of the right lower lobe Cardiomegaly No significant mediastinal lymphadenopathy Chest x-ray 07/21/2021 personally reviewed: Portable film, good respiratory effort, air between the cardiac silhouette and the left diaphragm, increased cardiac silhouette, blunted right costophrenic angle, no clear infiltrate Minimal pulmonary vascular congestion seems to be improved from before --Acute on chronic cough likely secondary to asthmatic bronchitis With chest tightness Etiology is multifactorial Patient does have mechanical mitral valve with large atrium which is associated with cough especially if it presses on the laryngeal nerve Patient has had difficulty swallowing although she denies association with food but I do think that is also playing a part in her cough She did have some wheezing when she was coughing, acute bronchitis with possible underlying asthmatic is also a possibility --> continue with budesonide and formoterol nebulized along with DuoNebs Patient does have reflux disease which also may be playing a role in her cough --Right-sided pleural effusion with right lower lobe atelectasis Etiology of pleural effusion is most likely cardiac Procalcitonin 0.05 Covid-19 NAAT negative No WBC count BNP 99 Plan: In/out: -738, urine output 2750 Continue with budesonide and formoterol and complete the course of doxycycline doxycycline I will give the patient a dose of Solu-Medrol 20 mg IV because of persistent wheezing since last 2 days. No absolute contraindication from pulmonary perspective for patient to undergo EGD Would recommend BiPAP with backup rate post conscious sedation if need be. Please note the above document was generated using voice recognition software. It may contain grammatical, syntax or spelling errors.Any formal questions or concerns about the content, text or information contained within the body of this dictation should be directly addressed to the provider for clarification. Admission and Anticipated Discharge Date Admission Date: July 18, 2021 Subjective Patient seen and examined at bedside. No acute distress, no adverse events overnight. She is coughing and bringing up phlegm. Denies any hemoptysis. She has been using the flutter valve Able to swallow. No chest pain, no dizziness, no headache Review of Systems Review of Systems: All systems reviewed & are unremarkable except as noted in Subjective Physical Exam Physical Exam: Constitutional: No acute distress HEENT: EOMI, PERRLA Respiratory system: Good air entry bilaterally, no rhonchi, mild crackles bilateral lower lobes, positive expiratory wheeze CVS: S1-S2 positive, positive mechanical heart sounds at apex Abdomen: Soft, nontender, nondistended, positive bowel sounds x4 Extremities: +2 pulses bilaterally radialis/ dorsalis pedis, no cyanosis, no edema Neuro: Awake alert oriented x3 Psych: Normal mood and affect G/U: No Panda Skin: no rashes, warm and dry Lymphatic: no cervical or axillary lymphadenopathy Results & Data Results & Data ([facility]) Vital Signs (Past 12 Hours) Vital Signs Temp Pulse Resp BP Pulse Ox 07/23/21 07:55 36.7 C 82 17 131/69 96 07/23/21 07:11 95 H 18 95 07/23/21 03:40 81 20 96 07/23/21 03:00 36.7 C 85 20 115/68 95 07/22/21 23:30 36.8 C 92 H 20 106/60 94 07/22/21 23:06 77 18 96 07/22/21 21:18 98 H 152/66 H Laboratory Results 07/23/21 05:57 07/23/21 05:57 PG Care Time/CCT Total # of Minutes Spent Total Time Spent with Patient: Total time spent is greater than 50% in coordination of care (as documented) at patient's floor/unit and/or counseling patient: Coding Level of Care Code 30064 Subseq Hosp Care Lvl 2 Diagnoses Shortness of breath R06.[address] R93.89 Pleural effusion J90 Acute bronchitis J20.9 Asthmatic bronchitis J45.909
--- NOTE | 2021-07-23 08:50 | Electrocardiogram Report ---
Test Reason : Blood Pressure : / mmHG Vent. Rate : 071 BPM Atrial Rate : 066 BPM P-R Int : 000 ms QRS Dur : 100 ms QT Int : 402 ms P-R-T Axes : 000 063 -86 degrees QTc Int : 436 ms Poor data quality, interpretation may be adversely affected Atrial fibrillation Abnormal ECG When compared with ECG of 19-JUL-2021 06:17, Left anterior fascicular block is no longer Present Confirmed by Yonas Verma ([id number]) on 07/23/2021 8:49:26 AM Referred By: REFERRED SELF Confirmed By:Yonas Verma
[2021-07-23] MEDS: FORMOTEROL 20 MCG/2 ML VIAL INH SCH ×2 (08:51→20:03)
[2021-07-23] MEDS ORDERED: methylPREDNISolone 20 MG in SYRINGE 0 ML IV STA (11:21)
--- NOTE | 2021-07-23 11:43 | Cardiology Progress Note ---
Date of Service July 23, 2021 Assessment & Plan (1) Chronic heart failure with preserved ejection fraction (HFpEF): (2) H/O mitral valve replacement with mechanical valve: Plan: Hold warfarin in anticipation of EGD. Continue IV heparin bridging. Goal INR 3.0-3.5. Patient with history of chronic heart failure with preserved ejection fraction. Pulmonary exam improved with additional IV furosemide. Continue daily IV Lasix 40 mg. Transition back to outpatient dosing, 40 mg alternate with 80 mg in the next 24-48 hours. Goal INR post EGD is 3.0-3.5 for her mechanical mitral valve prosthesis. Await case management input regarding reimbursement for Lovenox. Admission and Anticipated Discharge Date Admission Date: July 18, 2021 Subjective Patient seen examined the bedside. Feeling better from a cardiovascular perspective today. Weight is down. Fluid balance -730 cc. Received an additional dose of furosemide yesterday in the afternoon. INR has trended downward to 1.4. Voices concern regarding potential cost of Lovenox in the outpatient setting. Reports insurance constraints. Review of Systems Review of Systems: All systems reviewed & are unremarkable except as noted in Subjective Physical Exam Constitutional: well developed and well nourished; no acute distress Respiratory: normal respiratory effort; no respiratory distress and no labored breathing Auscultation: + rales (Scant rales at the right base); no rhonchi and no wheezes Cardiovascular: Rate/Rhythm: + irregularly irregular Heart Sounds: normal S1, normal S2 and + murmur (2/6 Holosystolic murmur, crisp valve closure click auscultated.) Vessels: radial pulses present; no JVD and no carotid bruit Extremities: no edema Gastrointestinal (Abdomen): Inspection/Auscultation: abdomen normal to inspection and normal bowel sounds; abdomen not distended Percussion/Palpation: abdomen soft; abdomen nontender, no guarding and abdomen n ot rigid Neurologic: CN's II-XI intact bilaterally and moves all extremities; no focal motor deficits Psychiatric: A+Ox3, euthymic affect Results & Data ([facility]) Vital Signs (Past 12 Hours) Vital Signs Temp Pulse Resp BP Pulse Ox 07/23/21 08:51 90 18 94 07/23/21 07:55 36.7 C 82 17 131/69 96 07/23/21 07:11 95 H 18 95 07/23/21 03:40 81 20 96 07/23/21 03:00 36.7 C 85 20 115/68 95
[2021-07-23] MEDS: ACETAMINOPHEN 325 MG TAB PO PRN ×2 (11:48→22:20)
--- NOTE | 2021-07-23 12:47 | Hospitalist Progress Note ---
Date of Service July 23, 2021 Assessment & Plan Plan: Acute on chronic diastolic CHF -management per cardiology, currently on IV lasix 40mg daily, received extra dose yesterday -CXR 07/21 improved pleural effusion Questionable pneumonia vs atelectasis Bronchitis -seen on CTA chest -Clinically does not appear to have pneumonia (no fever, no leukocytosis, negative procalcitonin). -appreciate Pulmonology input, started doxycycline to finish 5 day course for bronchitis, 1 dose IV solumedrol 20mg ordered, continue nebulizer treatments. Dysphagia to solid food -Appreciate GI input.Plan for EGD tomorrow at 8am. Hold heparin drip at 2am tomorrow Hypokalemia -repleted Hyponatremia -mild, monitor for now Mechanical mitral Valve A fib on coumadin Supratherapeutic INR -Goal INR 3-3.5 -continue metoprolol 12.5mg BID -Hold coumadin for EGD next week. Avoid reversal of INR due to high risk for stroke with type of mechanical Mitral valve -currently on heparin drip, hold at 2am tomorrow -Patient reports monetary constraints with lovenox, she could not afford the $17 copay previously DVT ppx -Heparin drip Admission and Anticipated Discharge Date Admission Date: July 18, 2021 Subjective Feels better after receiving extra dose of lasix yesterday Leg swelling has completely resolved Cough improved Physical Exam Physical Exam: Appears stated age, no acute distress, pleasant Respiratory: diminished at bases, non productive cough, no rhonchi Cardiovascular: +systolic murmur, regular rate and rhythm Gastrointestinal (Abdomen): soft, non tender Musculoskeletal: No edema Neurologic: awake, alert, ambulating in room Results & Data Results & Data ([facility]) Vital Signs (Past 12 Hours) Vital Signs Temp Pulse Resp BP Pulse Ox 07/23/21 12:04 36.7 C 82 18 124/68 98 07/23/21 08:51 90 18 94 07/23/21 07:55 36.7 C 82 17 131/69 96 07/23/21 07:11 95 H 18 95 07/23/21 03:40 81 20 96 07/23/21 03:00 36.7 C 85 20 115/68 95 Laboratory Results Short CBC 07/23/21 Range/Units 05:57 WBC 5.93 (4.8-10.8) K/uL Hgb 10.7 L (12.0-16.0) g/dL Hct 35.0 L (37-47) % Plt Count 167 (130-400) K/uL BMP 07/23/21 05:57 Sodium 134 L Potassium 3.7 Chloride 97 L Carbon Dioxide 30 BUN 21 Creatinine 1.54 H Glucose 142 H Calcium 9.9 Medications Administered Current Inpatient Medications Acetaminophen (Acetaminophen 325 Mg Tab) 650 mg PO Q4H PRN PRN Reason: Pain or Fever Stop: 08/17/21 09:00 Last Admin: 07/23/21 11:48 Dose: 650 mg Documented by: Albuterol (Albuterol Hfa 8 Gm Inhaler) 2 puffs INH Q4H PRN PRN Reason: Shortness Of Breath Or Wheezing Stop: 08/17/21 09:00 Albuterol (Albut/Ipratrop 3mg/0.5mg Neb 3 Ml Vial) 3 ml NEB Q8R [facility]; Protocol Stop: 08/21/21 14:59 Last Admin: 07/23/21 07:09 Dose: 3 ml Documented by: Ascorbic Acid (Ascorbic Acid 500 Mg Tab) 500 mg PO DAILY [facility] Stop: 08/17/21 09:44 Last Admin: 07/23/21 08:18 Dose: 500 mg Documented by: Benzonatate (Benzonatate 100 Mg Capsule) 100 mg PO TID PRN PRN Reason: Cough Stop: 08/18/21 00:11 Last Admin: 07/23/21 04:27 Dose: 100 mg Documented by: Budesonide (Budesonide 0.25 Mg/2 Ml Vial (Pulmicort)) 0.25 mg INH BIDR [facility] Stop: 08/21/21 11:59 Last Admin: 07/23/21 07:09 Dose: 0.25 mg Documented by: Citalopram Hydrobromide (Citalopram 20 Mg Tab) 10 mg PO DAILY [facility] Stop: 08/17/21 09:59 Last Admin: 07/23/21 08:21 Dose: 10 mg Documented by: Doxycycline Hyclate (Doxycycline Hyclate 100 Mg Cap) 100 mg PO BID [facility]; Protocol Stop: 07/24/21 21:01 Last Admin: 07/23/21 08:19 Dose: 100 mg Documented by: Folic Acid (Folic Acid 1 Mg Tab) 1 mg PO QAM [facility] Stop: 08/17/21 09:44 Last Admin: 07/23/21 08:22 Dose: 1 mg Documented by: Formoterol Fumarate (Formoterol 20 Mcg/2 Ml Vial) 20 mcg INH BIDR [facility]; Protocol Stop: 08/21/21 18:59 Last Admin: 07/23/21 08:51 Dose: 20 mcg Documented by: Furosemide (Furosemide 40 Mg/4 Ml Vial) 40 mg IV DAILY [facility] Stop: 08/21/21 08:59 Last Admin: 07/23/21 08:24 Dose: 40 mg Documented by: Guaifenesin (Guaifenesin 600 Mg Tabcr) 600 mg PO Q12 [facility] Stop: 08/22/21 04:24 Last Admin: 07/23/21 05:21 Dose: 600 mg Documented by: Heparin Sodium/Dextrose (Heparin Sodium/Dextrose) 25,000 units in 500 mls @ 12 mls/hr IV .Q24H [facility]; Protocol Stop: 07/24/21 02:00 Last Titration: 07/23/21 07:16 Dose: 600 units/hr, 12 mls/hr Documented by: Levalbuterol HCl (Levalbuterol Hcl 1.25 Mg/3 Ml Neb) 1.25 mg NEB Q2H PRN; Protocol PRN Reason: Shortness Of Breath Or Wheezing Stop: 08/17/21 09:00 Last Admin: 07/23/21 03:40 Dose: 1.25 mg Documented by: Levothyroxine Sodium (Levothyroxine Sodium 100 Mcg Tablet) 100 mcg PO DAILYBB [facility] Stop: 08/17/21 09:44 Last Admin: 07/23/21 05:21 Dose: 100 mcg Documented by: Menthol (Cough Drop (Sugar Free) Raúl 24 Raúl/1 Box) 1 raúl BUCCAL PRN PRN PRN Reason: Sore Throat Stop: 08/17/21 23:58 Last Admin: 07/19/21 00:24 Dose: 1 raúl Documented by: Metoclopramide HCl (Metoclopramide Hcl 10 Mg Tablet) 10 mg PO DAILY PRN PRN Reason: Nausea Stop: 08/17/21 23:46 Last Admin: 07/21/21 08:10 Dose: 10 mg Documented by: Metoprolol Tartrate (Metoprolol Tartrate 25 Mg Tab) 12.5 mg PO BID [facility] Stop: 08/17/21 09:44 Last Admin: 07/23/21 08:23 Dose: 12.5 mg Documented by: Miscellaneous (Stop Heparin Order) 1 ea N/A ONE ONE Stop: 07/24/21 02:01 Nitroglycerin (Nitroglycerin Sl 0.4 Mg/Tab Tab) 0.4 mg SL UD PRN PRN Reason: Chest Pain Stop: 08/17/21 09:00 Last Admin: 07/22/21 16:12 Dose: 0.4 mg Documented by: Pantoprazole Sodium (Pantoprazole 40 Mg Tab) 40 mg PO PM [facility] Stop: 08/17/21 20:59 Last Admin: 07/22/21 21:16 Dose: 40 mg Documented by: Polyethylene Glycol (Polyethylene (Miralax) 17 Gm Pack) 17 gm PO DAILY PRN PRN Reason: Constipation Stop: 08/17/21 09:00 Ropinirole HCl (Ropinirole Hcl 2 Mg Tablet) 2 mg PO TID [facility] Stop: 08/17/21 09:59 Last Admin: 07/23/21 08:20 Dose: 2 mg Documented by: Rosuvastatin Calcium (Rosuvastatin Calcium 20 Mg Tab) 20 mg PO HS [facility] Stop: 08/17/21 20:59 Last Admin: 07/22/21 21:15 Dose: 20 mg Documented by: Saccharomyces Boulardii (Saccharomyces Boulardii 250 Mg Cap) 250 mg PO DAILY [facility] Stop: 08/19/21 08:59 Last Admin: 07/23/21 08:22 Dose: 250 mg Documented by: Spironolactone (Spironolactone 12.5 Mg Tab) 12.5 mg PO DAILY [facility] Stop: 08/17/21 09:44 Last Admin: 07/23/21 08:20 Dose: 12.5 mg Documented by: Vitamin D (Cholecalciferol 1,000 Units 25 Mcg Tab) 1,000 units PO QAM [facility] Stop: 08/17/21 09:44 Last Admin: 07/23/21 08:19 Dose: 1,000 units Documented by:
[2021-07-23] MEDS: PANTOprazole 40 MG TAB PO SCH (20:21)
[2021-07-23] MEDS: ROSUVASTATIN CALCIUM 20 MG TAB PO SCH (20:22)
[2021-07-23] MEDS ORDERED: guaiFENesin/DEXTROM SYRUP 100MG/10MG 5ML UDC PO ONE (23:45)
[2021-07-24] MEDS ORDERED: STOP HEPARIN ORDER ONE (02:00)
[2021-07-24] MEDS: LEVOTHYROXINE SODIUM 100 MCG TABLET PO SCH (06:00)
[2021-07-24] MEDS: BENZONATATE 100 MG CAPSULE PO PRN (06:00)
[2021-07-24 06:43] LABS: Hematocrit (blood only) 34.4 % (37-47); Hemoglobin 10.8 g/dL (12.0-16.0); Mean Corpuscular Hgb Conc 31.4 g/dL (32-36); Mean Corpuscular Volume 82.9 fL (80-100); Mean Platelet Volume 10.3 fL (7.4-10.4); Platelet Count 187 K/uL (130-400); RDW Coefficient of Variation 15.9 % (11.5-14.5); RDW Standard Deviation 48.2 fL (36.4-46.3); Red Blood Count 4.15 M/uL (4.2-5.4); White Blood Count 9.14 K/uL (4.8-10.8)
[2021-07-24] MEDS: BUDESONIDE 0.25 MG/2 ML VIAL (PULMICORT) INH SCH ×2 (07:01→20:13)
[2021-07-24] MEDS: FORMOTEROL 20 MCG/2 ML VIAL INH SCH ×2 (07:02→20:13)
[2021-07-24 07:06] LABS: BUN Creatinine Ratio 16.2 (10-20); Calcium 10.7 mg/dl (8.5-10.1); Creatinine Clr Calc Pharmacy 27.6 ml/min; Est GFR (African American) 44.2 ml/min; Est GFR (Non-African American) 38.1 ml/min; Magnesium 1.8 mg/dl (1.7-2.4); Potassium 3.9 mmol/L (3.5-5.1)
[2021-07-24] MEDS: ALBUT/IPRATROP 3MG/0.5MG NEB 3 ML VIAL NEB SCH ×3 (07:10→22:56)
--- NOTE | 2021-07-24 08:40 | Anesthesiology Consultation ---
Date of Service July 24, 2021 Assessment & Plan (1) Encounter for pre-operative examination: Chart Review Chart Review: Acceptable Risk for Surgery, Patient NOT seen in Pre Admission Testing and data entry email processor initiated Consults Requested none History Surgery Operation Date: 07/24/21 17:45 Proposed Procedures p Esophagogastroduodenoscopy Dr Matias - Sil Matias, DO Height/Weight Height: 5 ft Weight: 55.9 kg Allergies Allergy/AdvReac Type Severity Reaction Status Date / Time hydroxyzine Allergy Severe DYSTONIA Verified 07/18/21 07:32 prochlorperazine Allergy Severe NUCHAL Verified 07/18/21 07:32 DYSTONIA promethazine Allergy Severe NUCHAL Verified 07/18/21 07:32 DYSTONIA oxycodone Allergy Intermediate Numbness Verified 07/18/21 07:32 PERRY Inhibitors AdvReac Intermediate COUGH Verified 07/18/21 07:32 lisinopril AdvReac Intermediate Cough Verified 07/18/21 07:32 metformin AdvReac Intermediate DIARRHEA Verified 07/18/21 07:32 parsley AdvReac Intermediate AGITATION Verified 07/18/21 07:32 tetracycline AdvReac Intermediate DYSPEPSIA Verified 07/18/21 07:32 gabapentin AdvReac Drowsy Verified 07/18/21 07:32 NAUSEA MEDICINES Allergy Unknown SEE NOTE Uncoded 07/18/21 07:32 BELOW Medications Home Medications Medication Instructions Recorded Confirmed Last Taken cholecalciferol (vitamin D3) 25 1,000 unit PO QAM 12/05/17 07/18/21 01/12/21 mcg (1,000 unit) capsule (Vitamin D3) nitroglycerin 0.4 mg sublingual 0.4 mg SUBLINGUAL DIRECTED PRN 12/05/17 07/18/21 12/15/17 tablet (Nitrostat) omeprazole 20 mg capsule,delayed 20 mg PO PM 12/05/17 07/18/21 01/12/21 release furosemide 40 mg tablet 80 mg PO MOWEFRSA 05/18/18 07/18/21 01/11/21 levothyroxine 100 mcg tablet 100 mcg PO DAILYBB 05/18/18 07/18/21 01/12/21 folic acid 1 mg tablet 1 mg PO QAM #30 tab 05/21/18 07/18/21 01/12/21 ropinirole 2 mg tablet 2 mg PO TID 10/08/18 07/18/21 01/12/21 acetaminophen 500 mg tablet 500 mg PO Q6H PRN 12/31/19 07/18/21 Unknown (Tylenol Extra Strength) magnesium hydroxide 400 mg/5 mL 5 ml PO DAILY PRN 12/31/19 07/18/21 Unknown oral suspension (Milk of Magnesia) spironolactone 25 mg tablet 12.5 mg PO DAILY 12/31/19 07/18/21 01/12/21 furosemide 40 mg tablet 40 mg PO SUTUTH 10/15/20 07/18/21 01/12/21 rosuvastatin 20 mg tablet 20 mg PO HS 10/15/20 07/18/21 01/12/21 ascorbic acid (vitamin C) 500 mg 500 mg PO DAILY 03/31/21 07/18/21 Unknown tablet (Vitamin C) metoprolol tartrate 25 mg tablet 12.5 mg PO BID #30 tab 04/09/21 07/18/21 Unknown albuterol sulfate 90 mcg/actuation 2 puff INHALATION Q4H PRN 07/18/21 07/18/21 Unknown aerosol inhaler benzonatate 100 mg capsule 100 mg PO TID 07/18/21 07/18/21 Unknown bisacodyl 10 mg rectal suppository 10 mg OR DAILY 07/18/21 07/18/21 Unknown citalopram 10 mg tablet 10 mg PO DAILY 07/18/21 07/18/21 Unknown magnesium glycinate 100 mg tablet 0 mg PO DAILY 07/18/21 07/18/21 Unknown metoclopramide HCl 10 mg tablet 10 mg PO DAILY PRN 07/18/21 07/18/21 Unknown sennosides 17.2 mg tablet 17.2 mg PO HS PRN 07/18/21 07/18/21 Unknown tramadol 50 mg tablet 50 mg PO TID PRN 07/18/21 07/18/21 Unknown warfarin 5 mg tablet 5 mg PO DIRECTED 07/18/21 07/18/21 Unknown Active Medications Generic Name Dose Route Start Last Admin Trade Name Freq PRN Reason Stop Dose Admin Acetaminophen 650 mg 07/18/21 09:01 07/23/21 22:20 Acetaminophen 325 Mg Tab PO 08/17/21 09:00 650 mg Q4H PRN Administration Pain or Fever Albuterol 3 ml 07/22/21 15:00 07/24/21 07:10 Albut/Ipratrop 3mg/0.5mg Neb 3 Ml Vial NEB 08/21/21 14:59 3 ml Q8R PRISCILA Administration Protocol Ascorbic Acid 500 mg 07/18/21 09:45 07/23/21 08:18 Ascorbic Acid 500 Mg Tab PO 08/17/21 09:44 500 mg DAILY PRISCILA Administration Benzonatate 100 mg 07/19/21 00:12 07/24/21 06:00 Benzonatate 100 Mg Capsule PO 08/18/21 00:11 100 mg TID PRN Administration Cough Budesonide 0.25 mg 07/22/21 12:00 07/24/21 07:01 Budesonide 0.25 Mg/2 Ml Vial (Pulmicort) INH 08/21/21 11:59 0.25 mg BIDR PRISCILA Administration Citalopram Hydrobromide 10 mg 07/18/21 10:00 07/23/21 08:21 Citalopram 20 Mg Tab PO 08/17/21 09:59 10 mg DAILY PRISCILA Administration Doxycycline Hyclate 100 mg 07/21/21 19:00 07/23/21 20:22 Doxycycline Hyclate 100 Mg Cap PO 07/24/21 21:01 100 mg BID PRISCILA Administration Protocol Folic Acid 1 mg 07/18/21 09:45 07/23/21 08:22 Folic Acid 1 Mg Tab PO 08/17/21 09:44 1 mg QAM PRISCILA Administration Formoterol Fumarate 20 mcg 07/22/21 19:00 07/24/21 07:02 Formoterol 20 Mcg/2 Ml Vial INH 08/21/21 18:59 20 mcg BIDR PRISCILA Administration Protocol Furosemide 40 mg 07/22/21 09:00 07/23/21 08:24 Furosemide 40 Mg/4 Ml Vial IV 08/21/21 08:59 40 mg DAILY PRISCILA Administration Guaifenesin 600 mg 07/23/21 04:25 07/23/21 20:22 Guaifenesin 600 Mg Tabcr PO 08/22/21 04:24 600 mg Q12 PRISCILA Administration Levalbuterol HCl 1.25 mg 07/18/21 09:01 07/23/21 03:40 Levalbuterol Hcl 1.25 Mg/3 Ml Neb NEB 08/17/21 09:00 1.25 mg Q2H PRN Administration Shortness Of Breath Or Wheezing Protocol Levothyroxine Sodium 100 mcg 07/18/21 09:45 07/24/21 06:00 Levothyroxine Sodium 100 Mcg Tablet PO 08/17/21 09:44 100 mcg DAILYBB PRISCILA Administration Menthol 1 eliana 07/18/21 23:59 07/19/21 00:24 Cough Drop (Sugar Free) Eliana 24 Eliana/1 Box BUCCAL 08/17/21 23:58 1 eliana PRN PRN Administration Sore Throat Metoclopramide HCl 10 mg 07/18/21 23:47 07/21/21 08:10 Metoclopramide Hcl 10 Mg Tablet PO 08/17/21 23:46 10 mg DAILY PRN Administration Nausea Metoprolol Tartrate 12.5 mg 07/18/21 09:45 07/23/21 20:22 Metoprolol Tartrate 25 Mg Tab PO 08/17/21 09:44 12.5 mg BID PRISCILA Administration Nitroglycerin 0.4 mg 07/18/21 09:01 07/22/21 16:12 Nitroglycerin Sl 0.4 Mg/Tab Tab SL 08/17/21 09:00 0.4 mg UD PRN Administration Chest Pain Pantoprazole Sodium 40 mg 07/18/21 21:00 07/23/21 20:21 Pantoprazole 40 Mg Tab PO 08/17/21 20:59 40 mg PM PRISCILA Administration Ropinirole HCl 2 mg 07/18/21 10:00 07/23/21 20:22 Ropinirole Hcl 2 Mg Tablet PO 08/17/21 09:59 2 mg TID PRISCILA Administration Rosuvastatin Calcium 20 mg 07/18/21 21:00 07/23/21 20:22 Rosuvastatin Calcium 20 Mg Tab PO 08/17/21 20:59 20 mg HS PRISCILA Administration Saccharomyces Boulardii 250 mg 07/20/21 09:00 07/23/21 08:22 Saccharomyces Boulardii 250 Mg Cap PO 08/19/21 08:59 250 mg DAILY PRISCILA Administration Spironolactone 12.5 mg 07/18/21 09:45 07/23/21 08:20 Spironolactone 12.5 Mg Tab PO 08/17/21 09:44 12.5 mg DAILY PRISCILA Administration Vitamin D 1,000 units 07/18/21 09:45 07/23/21 08:19 Cholecalciferol 1,000 Units 25 Mcg Tab PO 08/17/21 09:44 1,000 units QAM [facility] Administration Past Medical History Medical History (Updated 07/24/21 @ 08:44 by Faisal Samuel MD) A-fib Anemia chronic; baseline hgb 9-10 range per chart review Anxiety CKD (chronic kidney disease), stage III Diabetes diet controlled Encounter for pre-operative examination GERD (gastroesophageal reflux disease) controlled History of blood transfusion autologous s/p MVR (1993), 09/2018 (post-op) HTN (hypertension) Hx of myocardial infarction 2000, medical management Hyperlipidemia Hypothyroidism Migraines 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 migraine vs. stress related)-- plavix since discontinued Past Family History Family History Uncle , of [place] in his 40s Coronary heart disease Past Surgical History Surgical History H/O radioactive iodine thyroid ablation H/O: hysterectomy History of cardiac cath 2000= NO STENTS History of colonoscopy History of tonsillectomy and adenoidectomy History of total left knee replacement Hx of appendectomy Hx of cholecystectomy Hx of mitral valve replacement 1993 (rheumatic valvular disease) Hx of tubal ligation Social History Smoking Status: Never smoker Do You Dip or Chew Tobacco: No Hx Alcohol Use: Yes Alcohol type: wine alcohol intake frequency: a few times a week Hx Substance Use: No substance use type: does not use Physical Exam Vital Signs Last Vital Signs Temp 36.9 C 07/24/21 07:08 Pulse 98 H 07/24/21 07:08 Resp 20 07/24/21 07:08 BP 123/62 07/24/21 07:08 Pulse Ox 98 07/24/21 07:08 Testing Laboratory Results 07/24/21 06:22 07/24/21 06:22 PT 14.6 Seconds (9.0-12.0) H 07/23/21 05:57 INR 1.4 (0.9-1.1) H 07/23/21 05:57 APTT 54.6 Seconds (21.0-31.0) H* 07/22/21 23:13 Hemoglobin A1c 7.0 % (4.5-5.6) H 07/19/21 05:44 Urine Color Yellow 07/18/21 04:30 Urine Appearance Clear (Clear) 07/18/21 04:30 Urine pH 7.5 (4.5-7.5) 07/18/21 04:30 Ur Specific [place] 1.012 (1.000-1.030) 07/18/21 04:30 Urine Protein 1+ (Negative) H 07/18/21 04:30 Urine Glucose (UA) Negative (Negative) 07/18/21 04:30 Urine Ketones Negative (Negative) 07/18/21 04:30 Urine Nitrite Negative (Negative) 07/18/21 04:30 Ur Leukocyte Esterase 1+ (Negative) H 07/18/21 04:30 Urine WBC (Auto) 10-30 /hpf (0-5) H 07/18/21 04:30 Urine RBC (Auto) 10-30 /hpf (0-4) H 07/18/21 04:30 U Hyaline Cast (Auto) 0 /lpf (0-5) 07/18/21 04:30 U Epithel Cells (Auto) 10-20 /lpf (0-5) H 07/18/21 04:30 Urine Bacteria (Auto) Negative (Negative) 07/18/21 04:30 07/18/21 04:30 Urine Culture - Final Urine,Clean Catch Three types of organisms present, all low counts probable skin demarcus. No further identifications or sensitivities to follow. Electrocardiogram Date: 07/22/21 Abnormal ECG When compared with ECG of 19-JUL-2021 06:17, Left anterior fascicular block is no longer Present Confirmed by Yonas Verma ([id number]) on 07/23/2021 8:49:26 AM Chest X-Ray Date: 07/21/21 XR chest 1V portable HISTORY: follow up pleural effusion COMPARISON: Chest 07/18/2021. FINDINGS: No pneumothorax. Small right pleural effusion right basilar densities have slightly improved. Cardiac silhouette remains moderately enlarged. Mild interstitial pulmonary edema has also improved. Cardiac valve prosthesis and poststernotomy changes are again noted. No new focal lung consolidations. IMPRESSION: Interval improvement in the mild interstitial pulmonary edema and small right pleural effusion. Echocardiogram Date: 07/18/21 EF: 55-60% LV Function: normal RWMA: + none Other Findings: + atrial enlargement (Severe dilation B/L) Valvular Disease: + AI (mild) Mod to severe TR
[2021-07-24] MEDS ORDERED: LIDOCAINE 2% 2 ML VIAL/AMP(20MG/ML) INFIL ONE (08:53)
[2021-07-24] MEDS ORDERED: PROPOFOL IV EMULSION 10 MG/ML 20 ML VIAL IV ONE (08:53)
--- NOTE | 2021-07-24 09:05 | History & Physical Report ---
Date of Service July 24, 2021 Assessment & Plan (1) Acute bronchitis: (2) Dysphagia: Plan: EGD today (3) Pneumonia: Admission and Anticipated Discharge Date Admission Date: July 18, 2021 History of Present Illness Chief Complaint: dysphagia Primary Care Provider: John Blanco MD dysphagia Allergies Allergy/AdvReac Type Severity Reaction Status Date / Time hydroxyzine Allergy Severe DYSTONIA Verified 07/18/21 07:32 prochlorperazine Allergy Severe NUCHAL Verified 07/18/21 07:32 DYSTONIA promethazine Allergy Severe NUCHAL Verified 07/18/21 07:32 DYSTONIA oxycodone Allergy Intermediate Numbness Verified 07/18/21 07:32 PERRY Inhibitors AdvReac Intermediate COUGH Verified 07/18/21 07:32 lisinopril AdvReac Intermediate Cough Verified 07/18/21 07:32 metformin AdvReac Intermediate DIARRHEA Verified 07/18/21 07:32 parsley AdvReac Intermediate AGITATION Verified 07/18/21 07:32 tetracycline AdvReac Intermediate DYSPEPSIA Verified 07/18/21 07:32 gabapentin AdvReac Drowsy Verified 07/18/21 07:32 NAUSEA MEDICINES Allergy Unknown SEE NOTE Uncoded 07/18/21 07:32 BELOW Home Medications Medication Instructions Recorded Confirmed Type cholecalciferol (vitamin D3) 25 1,000 unit PO QAM 12/05/17 07/18/21 History mcg (1,000 unit) capsule (Vitamin D3) nitroglycerin 0.4 mg sublingual 0.4 mg SUBLINGUAL DIRECTED PRN 12/05/17 07/18/21 History tablet (Nitrostat) omeprazole 20 mg capsule,delayed 20 mg PO PM 12/05/17 07/18/21 History release furosemide 40 mg tablet 80 mg PO MOWEFRSA 05/18/18 07/18/21 History levothyroxine 100 mcg tablet 100 mcg PO DAILYBB 05/18/18 07/18/21 History folic acid 1 mg tablet 1 mg PO QAM #30 tab 05/21/18 07/18/21 Rx ropinirole 2 mg tablet 2 mg PO TID 10/08/18 07/18/21 History acetaminophen 500 mg tablet 500 mg PO Q6H PRN 12/31/19 07/18/21 History (Tylenol Extra Strength) magnesium hydroxide 400 mg/5 mL 5 ml PO DAILY PRN 12/31/19 07/18/21 History oral suspension (Milk of Magnesia) spironolactone 25 mg tablet 12.5 mg PO DAILY 12/31/19 07/18/21 History furosemide 40 mg tablet 40 mg PO SUTUTH 10/15/20 07/18/21 History rosuvastatin 20 mg tablet 20 mg PO HS 10/15/20 07/18/21 History ascorbic acid (vitamin C) 500 mg 500 mg PO DAILY 03/31/21 07/18/21 History tablet (Vitamin C) metoprolol tartrate 25 mg tablet 12.5 mg PO BID #30 tab 04/09/21 07/18/21 Rx albuterol sulfate 90 mcg/actuation 2 puff INHALATION Q4H PRN 07/18/21 07/18/21 History aerosol inhaler benzonatate 100 mg capsule 100 mg PO TID 07/18/21 07/18/21 History bisacodyl 10 mg rectal suppository 10 mg ND DAILY 07/18/21 07/18/21 History citalopram 10 mg tablet 10 mg PO DAILY 07/18/21 07/18/21 History magnesium glycinate 100 mg tablet 0 mg PO DAILY 07/18/21 07/18/21 History metoclopramide HCl 10 mg tablet 10 mg PO DAILY PRN 07/18/21 07/18/21 History sennosides 17.2 mg tablet 17.2 mg PO HS PRN 07/18/21 07/18/21 History tramadol 50 mg tablet 50 mg PO TID PRN 07/18/21 07/18/21 History warfarin 5 mg tablet 5 mg PO DIRECTED 07/18/21 07/18/21 History Past Med/Surg History Medical History (Updated 07/24/21 @ 08:44 by Faisal Samuel MD) A-fib Anemia chronic; baseline hgb 9-10 range per chart review Anxiety CKD (chronic kidney disease), stage III Diabetes diet controlled Encounter for pre-operative examination GERD (gastroesophageal reflux disease) controlled History of blood transfusion autologous s/p MVR (1993), 09/2018 (post-op) HTN (hypertension) Hx of myocardial infarction 2000, medical management Hyperlipidemia Hypothyroidism Migraines 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 migraine vs. stress related)-- plavix since discontinued Surgical History H/O radioactive iodine thyroid ablation H/O: hysterectomy History of cardiac cath 2000= NO STENTS History of colonoscopy History of tonsillectomy and adenoidectomy History of total left knee replacement Hx of appendectomy Hx of cholecystectomy Hx of mitral valve replacement 1993 (rheumatic valvular disease) Hx of tubal ligation Family History Uncle , of [place] in his 40s Coronary heart disease Social History Smoking Status: Never smoker Second Hand Exposure: No; Do You Dip or Chew Tobacco: No; Tobacco Cessation Education Requested by Patient: No Hx Alcohol Use: Yes Alcohol type: wine Hx Substance Use: No Preferred Language: [place] Communication Ability: Effective Immunologist Required: No Beliefs That Will Affect Care: None marital status: Single Current Living Situation: Alone Current Living Situation Comment: takes care of mother current occupational status: disabled How many Children do You have: 0 Other Information That Helps Us Care for You: No Feels Safe at Home: Yes Safety Concerns: Feels Safe At This Time Assistive Devices: Cane and Walker Assistive Devices Comment: walker at night, cane during the day Review of Systems All systems reviewed & are unremarkable except as noted in HPI & below Results & Data ([facility]) Vital Signs (Past 12 Hours) Vital Signs Temp Pulse Resp BP Pulse Ox 07/24/21 08:50 36.7 C 98 H 16 152/73 H 98 07/24/21 07:08 36.9 C 98 H 20 123/62 98 07/24/21 07:05 87 20 96 07/24/21 03:50 36.8 C 93 H 18 113/59 L 96 07/23/21 23:52 36.8 C 102 H 18 130/61 94 07/23/21 23:10 105 H 20 96 Code Status & VTE Plan VTE Prophylaxis Plan VTE Prophylaxis will be ordered: Yes
--- NOTE | 2021-07-24 09:26 | GI REPORT ---
Patient Name: Abdi Bowling Procedure Date: 07/24/2021 8:58 AM Date of : 1955 Admit Type: Inpatient Age: 65 Gender: Female Attending MD: Sil Matias DO Procedure: Upper GI endoscopy Providers: Sil Matias DO Referring MD: Lisha Calderon Md Indications: Dysphagia Medicines: Propofol per Anesthesia Complications: No immediate complications. Estimated blood loss: None. Estimated Blood Loss: Estimated blood loss: none. Procedure: Pre-Anesthesia Assessment: - Prior to the procedure, a History and Physical was performed, and patient medications, allergies and sensitivities were reviewed. The patient's tolerance of previous anesthesia was reviewed. - The risks and benefits of the procedure and the sedation options and risks were discussed with the patient. All questions were answered and informed consent was obtained. - Patient identification and proposed procedure were verified prior to the procedure by the physician and the nurse. The procedure was verified in the pre-procedure area in the procedure room. - Mental Status Examination: Airway Examination: normal oropharyngeal airway and neck mobility. Respiratory Examination: clear to auscultation. CV Examination: normal. Abdominal Examination: bowel sounds present, abdomen soft and non-tender, no masses or organomegaly noted. - ASA Grade Assessment: III - A patient with severe systemic disease. After obtaining informed consent, the endoscope was passed under direct vision. Throughout the procedure, the patient's blood pressure, pulse, and oxygen saturations were monitored continuously. The Scope was introduced through the mouth, and advanced to the second part of duodenum. The upper GI endoscopy was accomplished without difficulty. The patient tolerated the procedure well. Findings: The examined esophagus was normal. A guidewire was placed and the scope was withdrawn. Dilation was performed with a Savary dilator with no resistance at 54 Fr. The dilation site was examined and showed no bleeding, mucosal tear or perforation. Estimated blood loss: none. The stomach was normal. The examined duodenum was normal. Impression: - Normal esophagus. Dilated. - Normal stomach. - Normal examined duodenum. - No specimens collected. Recommendation: - Follow an antireflux regimen. - Resume Coumadin (warfarin) at prior dose today. - Return patient to hospital walker for ongoing care. Fiorella HarrisO. Sil Matias DO 07/24/2021 9:25:41 AM This report has been signed electronically. Note Initiated On: 07/24/2021 8:58 AM Number of Addenda: 0 I attest to the content of the Intraoperative Record and orders documented therein, exceptions below {[id number]}
[2021-07-24] MEDS: FUROSEMIDE 40 MG/4 ML VIAL IV SCH (10:21)
--- NOTE | 2021-07-24 10:28 | Pulmonology Progress Note ---
Date of Service July 24, 2021 Assessment & Plan (1) Shortness of breath: (2) Abnormal chest CT: (3) Pleural effusion: (4) Acute bronchitis: (5) Asthmatic bronchitis: Plan: Impression: 65-year-old female Recommendations: 1. Cough: Suspect multifactorial due to combinations of possible old esophageal dysfunction/reflux. Cannot rule out component of asthmatic cough as well. No prior PFTs available. We will see how she responds. If persistent issues, may consider use of hydrocodone or potential neurogenic modulators such as gabapentin. Can continue Tessalon and guaifenesin as needed. 2. Dyspnea on exertion: Again multifactorial. Optimization of the patient's underlying valvular heart disease recommended. 3. Possible bronchitic episode. Complete course of doxycycline. Continue budesonide and Perforomist 4. Small right effusion: Suspect related to underlying cardiac issues. No indication for sampling currently. Continue to follow clinically. 5. No contraindication to anticoagulation from a pulmonary perspective. Management per primary service. The patient would like to follow-up with Dr. Sales in the outpatient setting at discharge. She should have outpatient PFTs when clinically stable. Admission and Anticipated Discharge Date Admission Date: July 18, 2021 Subjective Patient seen and examined. EMR reviewed. Discussed with off going cycle manager. The patient underwent EGD with dilatation of esophageal stricture this morning. She is doing well. She is on nasal cannula. She continues to have episodic issues with cough. She is not producing any phlegm. No wheezing. She received steroids yesterday. She denies fevers chills night sweats or other constitutional symptoms. Review of Systems Review of Systems: All systems reviewed & are unremarkable except as noted in Subjective Physical Exam Constitutional: WD/WN, vitals as above Neck: trachea midline, no thyromegaly Respiratory: normal respiratory effort, lungs clear to auscultation Cardiovascular: RRR, no murmur, no edema Gastrointestinal (Abdomen): normal bowel sounds, soft, nontender, no hepatosplenomegaly Musculoskeletal: Extremities: extremities normal to inspection Skin: no rashes, warm and dry Neurologic: Nonfocal exam Lymphatic: no cervical lymphadenopathy Results & Data Results & Data ([facility]) Vital Signs (Past 12 Hours) Vital Signs Temp Pulse Resp BP Pulse Ox 07/24/21 09:56 99 H 20 133/81 94 07/24/21 09:41 104 H 20 157/79 H 97 07/24/21 09:26 95 H 18 138/72 97 07/24/21 08:50 36.7 C 98 H 16 152/73 H 98 07/24/21 07:08 36.9 C 98 H 20 123/62 98 07/24/21 07:05 87 20 96 07/24/21 03:50 36.8 C 93 H 18 113/59 L 96 07/23/21 23:52 36.8 C 102 H 18 130/61 94 07/23/21 23:10 105 H 20 96 Laboratory Results 07/24/21 06:22 07/24/21 06:22 Diagnostic Findings Imaging reviewed. Please refer to prior notes PG Care Time/CCT Total # of Minutes Spent Total Time Spent with Patient: Total time spent is greater than 50% in coordination of care (as documented) at patient's floor/unit and/or counseling patient: Coding Level of Care Code 22153 Subseq Hosp Care Lvl 3 Diagnoses Shortness of breath R06.[address] R93.89 Pleural effusion J90 Acute bronchitis J20.9 Asthmatic bronchitis J45.909
--- NOTE | 2021-07-24 12:04 | Cardiology Progress Note ---
Date of Service July 24, 2021 Assessment & Plan (1) Chronic heart failure with preserved ejection fraction (HFpEF): (2) H/O mitral valve replacement with mechanical valve: Plan: Patient with history of chronic heart failure with preserved ejection fraction. Transition furosemide back to outpatient dosing, 40 mg alternate with 80 mg in the a.m. Goal INR post EGD is 3.0-3.5 for her mechanical mitral valve prosthesis. Await Case management input regarding reimbursement for Lovenox. Will need resumption of IV heparin today given mechanical mitral valve prosthesis will restart at 1600 given esophageal procedure Resume warfarin this evening Admission and Anticipated Discharge Date Admission Date: July 18, 2021 Subjective Patient seen and examined, chart, medications, telemetry reviewed. Patient underwent EGD and esophageal dilation earlier this morning without difficulty. No observed bleeding. Currently comfortable without complaint no dyspnea., No chest pain Physical Exam Constitutional: WD/WN, vitals as above well developed and well nourished; no acute distress Respiratory: normal respiratory effort, lungs clear to auscultation normal respiratory effort and + cough; no respiratory distress and no labored breathing Auscultation: + diminished lung sounds, + crackles (right base greater than left) and + rales (Scant rales at the right base); no rhonchi and no wheezes Cardiovascular: Rate/Rhythm: + irregularly irregular Heart Sounds: normal S1, normal S2 and + murmur (2/6 Holosystolic murmur, crisp valve closure click auscultated.) Vessels: radial pulses present; no JVD and no carotid bruit Extremities: no edema Gastrointestinal (Abdomen): normal bowel sounds, soft, nontender, no hepatosplenomegaly Inspection/Auscultation: abdomen normal to inspection and normal bowel sounds; abdomen not distended Percussion/Palpation: abdomen soft; abdomen nontender, no guarding and abdomen not rigid Neurologic: PERRL, EOMI, accommodation nl, no face palsy, no dysarthria CN's II-XI intact bilaterally and moves all extremities; no focal motor deficits Psychiatric: A+Ox3, euthymic affect Results & Data ([facility]) Vital Signs (Past 12 Hours) Vital Signs Temp Pulse Resp BP Pulse Ox 07/24/21 10:30 36.1 C L 107 H 20 155/77 H 98 07/24/21 09:56 99 H 20 133/81 94 06/06/22 09:41 104 H 20 157/79 H 97 07/24/21 09:26 95 H 18 138/72 97 07/24/21 08:50 36.7 C 98 H 16 152/73 H 98 07/24/21 07:08 36.9 C 98 H 20 123/62 98 07/24/21 07:05 87 20 96 07/24/21 03:50 36.8 C 93 H 18 113/59 L 96 Laboratory Results Laboratory Results - last 24 hr 07/24/21 07/24/21 06:22 06:22 WBC 9.14 RBC 4.15 L Hgb 10.8 L Hct 34.4 L MCV 82.9 MCH 26.0 MCHC 31.4 L RDW Std Deviation 48.2 H RDW Coeff of Courtney 15.9 H Plt Count 187 MPV 10.3 Sodium 130 L Potassium 3.9 Chloride 95 L Carbon Dioxide 26 Anion Gap 9 BUN 23 Creatinine 1.42 H Est Cr Clr Drug Dosing 27.6 Est GFR ( Amer) 44.2 Est GFR (Non-Af Amer) 38.1 BUN/Creatinine Ratio 16.2 Glucose 162 H Calcium 10.7 H Magnesium 1.8
[2021-07-24] MEDS: rOPINIRole HCL 2 MG TABLET PO SCH ×3 (13:07→20:17)
[2021-07-24] MEDS: CHOLECALCIFEROL 1,000 UNITS 25 MCG TAB PO SCH (13:37)
[2021-07-24] MEDS: ASCORBIC ACID 500 MG TAB PO SCH (13:37)
[2021-07-24] MEDS: DOXYCYCLINE HYCLATE 100 MG CAP PO SCH ×2 (13:38→20:17)
[2021-07-24] MEDS: METOPROLOL TARTRATE 25 MG TAB PO SCH ×2 (13:38→20:18)
[2021-07-24] MEDS: guaiFENesin 600 MG TABCR PO SCH ×2 (13:38→20:19)
[2021-07-24] MEDS: SACCHAROMYCES BOULARDII 250 MG CAP PO SCH (13:39)
[2021-07-24] MEDS: CITALOPRAM 20 MG TAB PO SCH (13:39)
[2021-07-24] MEDS: SPIRONOLACTONE 12.5 MG TAB PO SCH (13:39)
[2021-07-24] MEDS: FOLIC ACID 1 MG TAB PO SCH (13:40)
[2021-07-24 13:43] LABS: INR 1.2 (0.9-1.1); Partial Thromboplastin Time 28.8 Seconds (21.0-31.0)
--- NOTE | 2021-07-24 14:08 | Anesthesiology Progress Note ---
Date of Service July 24, 2021 Anesthesia Post Procedure Vital Signs Vital Signs: Temp Pulse Resp BP Pulse Ox 07/24/21 14:06 103 H 20 98 07/24/21 12:00 95 H 20 132/61 96 07/24/21 11:30 100 H 20 138/67 95 07/24/21 11:00 94 H 20 127/69 93 07/24/21 10:45 104 H 20 125/73 96 07/24/21 10:30 36.1 C L 107 H 20 155/77 H 98 07/24/21 09:56 99 H 20 133/81 94 07/24/21 09:41 104 H 20 157/79 H 97 07/24/21 09:26 95 H 18 138/72 97 07/24/21 08:50 36.7 C 98 H 16 152/73 H 98 07/24/21 07:08 36.9 C 98 H 20 123/62 98 07/24/21 07:05 87 20 96 07/24/21 03:50 36.8 C 93 H 18 113/59 L 96 07/23/21 23:52 36.8 C 102 H 18 130/61 94 07/23/21 23:10 105 H 20 96 07/23/21 20:03 99 H 22 97 07/23/21 19:16 37.2 C 104 H 18 143/61 H 93 07/23/21 16:14 36.6 C 111 H 17 121/67 95 Transfer of Care Handoff Completed per policy Notes Mental Status: alert / awake / arousable and participated in evaluation Patient Amnestic to Procedure: Yes Nausea / Vomiting: adequately controlled Pain: adequately controlled Airway Patency, RR, SpO2: stable & adequate BP & HR: stable & adequate Hydration State: stable & adequate Anesthetic Complications: no major complications apparent and Pt Satisfied with anesthetic care
[2021-07-24] MEDS ORDERED: WARFARIN SOD 5 MG TAB PO SCH (16:00)
[2021-07-24] MEDS ORDERED: HEPARIN SODIUM/DEXTROSE 25,000 UNITS/500 ML BAG IV SCH (16:00)
--- NOTE | 2021-07-24 16:28 | Hospitalist Progress Note ---
Date of Service July 24, 2021 Assessment & Plan Plan: Acute on chronic diastolic CHF -management per cardiology, s/p IV lasix 40mg IV BID--daily, now back on home regimen -CXR 07/21 improved pleural effusion Questionable pneumonia vs atelectasis Bronchitis -seen on CTA chest -Clinically does not appear to have pneumonia (no fever, no leukocytosis, negative procalcitonin). -appreciate Pulmonology input, started doxycycline to finish 5 day course for bronchitis, s/p dose IV solumedrol 20mg ordered, continue nebulizer treatments. Dysphagia to solid food -Appreciate GI input.EGD today with esophageal dilation Hypokalemia -repleted Hyponatremia -mild, monitor for now Mechanical mitral Valve A fib on coumadin Supratherapeutic INR -Goal INR 3-3.5 -continue metoprolol 12.5mg BID -resuming heparin drip and coumadin -Lovenox copay is $20 for 7 days worth, she is ok with this DVT ppx -Heparin drip Disposition- discharge home tomorrow Admission and Anticipated Discharge Date Admission Date: July 18, 2021 Subjective Went for EGD today Tolerating clears Leg swelling resolved No issues overnight Physical Exam Physical Exam: No acute distress, pleasant, non toxic Respiratory: Breathing comfortably on room air, no wheezing Cardiovascular: +systolic murmur, no rubs, gallops Gastrointestinal (Abdomen): soft, non tender Musculoskeletal: No edema Neurologic: Awake, alert, spontaneously moving extremities Results & Data Results & Data ([facility]) Vital Signs (Past 12 Hours) Vital Signs Temp Pulse Resp BP Pulse Ox 07/24/21 15:32 36.6 C 69 18 136/74 95 07/24/21 14:06 103 H 20 98 07/24/21 13:30 109 H 20 153/71 H 96 07/24/21 12:30 131 H 20 147/74 H 96 07/24/21 12:00 95 H 20 132/61 96 07/24/21 11:30 100 H 20 138/67 95 07/24/21 11:00 94 H 20 127/69 93 07/24/21 10:45 104 H 20 125/73 96 07/24/21 10:30 36.1 C L 107 H 20 155/77 H 98 07/24/21 09:56 99 H 20 133/81 94 07/24/21 09:41 104 H 20 157/79 H 97 07/24/21 09:26 95 H 18 138/72 97 07/24/21 08:50 36.7 C 98 H 16 152/73 H 98 07/24/21 07:08 36.9 C 98 H 20 123/62 98 07/24/21 07:05 87 20 96 Laboratory Results Short CBC 07/24/21 Range/Units 06:22 WBC 9.14 (4.8-10.8) K/uL Hgb 10.8 L (12.0-16.0) g/dL Hct 34.4 L (37-47) % Plt Count 187 (130-400) K/uL BMP 07/24/21 06:22 Sodium 130 L Potassium 3.9 Chloride 95 L Carbon Dioxide 26 BUN 23 Creatinine 1.42 H Glucose 162 H Calcium 10.7 H Medications Administered Current Inpatient Medications Acetaminophen (Acetaminophen 325 Mg Tab) 650 mg PO Q4H PRN PRN Reason: Pain or Fever Stop: 08/17/21 09:00 Last Admin: 07/23/21 22:20 Dose: 650 mg Documented by: Albuterol (Albuterol Hfa 8 Gm Inhaler) 2 puffs INH Q4H PRN PRN Reason: Shortness Of Breath Or Wheezing Stop: 08/17/21 09:00 Albuterol (Albut/Ipratrop 3mg/0.5mg Neb 3 Ml Vial) 3 ml NEB Q8R [facility]; Protocol Stop: 08/21/21 14:59 Last Admin: 07/24/21 14:05 Dose: 3 ml Documented by: Ascorbic Acid (Ascorbic Acid 500 Mg Tab) 500 mg PO DAILY [facility] Stop: 08/17/21 09:44 Last Admin: 07/24/21 13:37 Dose: 500 mg Documented by: Benzonatate (Benzonatate 100 Mg Capsule) 100 mg PO TID PRN PRN Reason: Cough Stop: 08/18/21 00:11 Last Admin: 07/24/21 06:00 Dose: 100 mg Documented by: Budesonide (Budesonide 0.25 Mg/2 Ml Vial (Pulmicort)) 0.25 mg INH BIDR [facility] Stop: 08/21/21 11:59 Last Admin: 07/24/21 07:01 Dose: 0.25 mg Documented by: Citalopram Hydrobromide (Citalopram 20 Mg Tab) 10 mg PO DAILY [facility] Stop: 08/17/21 09:59 Last Admin: 07/24/21 13:39 Dose: 10 mg Documented by: Doxycycline Hyclate (Doxycycline Hyclate 100 Mg Cap) 100 mg PO BID [facility]; Protocol Stop: 07/24/21 21:01 Last Admin: 07/24/21 13:38 Dose: 100 mg Documented by: Folic Acid (Folic Acid 1 Mg Tab) 1 mg PO QAM [facility] Stop: 08/17/21 09:44 Last Admin: 07/24/21 13:40 Dose: 1 mg Documented by: Formoterol Fumarate (Formoterol 20 Mcg/2 Ml Vial) 20 mcg INH BIDR [facility]; Protocol Stop: 08/21/21 18:59 Last Admin: 07/24/21 07:02 Dose: 20 mcg Documented by: Furosemide (Furosemide 40 Mg/4 Ml Vial) 40 mg IV DAILY [facility] Stop: 08/21/21 08:59 Last Admin: 07/24/21 10:21 Dose: 40 mg Documented by: Guaifenesin (Guaifenesin 600 Mg Tabcr) 600 mg PO Q12 [facility] Stop: 08/22/21 04:24 Last Admin: 07/24/21 13:38 Dose: 600 mg Documented by: Heparin Sodium/Dextrose (Heparin Sodium/Dextrose) 25,000 units in 500 mls @ 12 mls/hr IV .Q24H [facility]; Protocol Stop: 08/23/21 15:59 Levalbuterol HCl (Levalbuterol Hcl 1.25 Mg/3 Ml Neb) 1.25 mg NEB Q2H PRN; Protocol PRN Reason: Shortness Of Breath Or Wheezing Stop: 08/17/21 09:00 Last Admin: 07/23/21 03:40 Dose: 1.25 mg Documented by: Levothyroxine Sodium (Levothyroxine Sodium 100 Mcg Tablet) 100 mcg PO DAILYBB [facility] Stop: 08/17/21 09:44 Last Admin: 07/24/21 06:00 Dose: 100 mcg Documented by: Menthol (Cough Drop (Sugar Free) Raúl 24 Raúl/1 Box) 1 raúl BUCCAL PRN PRN PRN Reason: Sore Throat Stop: 08/17/21 23:58 Last Admin: 07/19/21 00:24 Dose: 1 raúl Documented by: Metoclopramide HCl (Metoclopramide Hcl 10 Mg Tablet) 10 mg PO DAILY PRN PRN Reason: Nausea Stop: 08/17/21 23:46 Last Admin: 07/21/21 08:10 Dose: 10 mg Documented by: Metoprolol Tartrate (Metoprolol Tartrate 25 Mg Tab) 12.5 mg PO BID [facility] Stop: 08/17/21 09:44 Last Admin: 07/24/21 13:38 Dose: 12.5 mg Documented by: Nitroglycerin (Nitroglycerin Sl 0.4 Mg/Tab Tab) 0.4 mg SL UD PRN PRN Reason: Chest Pain Stop: 08/17/21 09:00 Last Admin: 07/22/21 16:12 Dose: 0.4 mg Documented by: Pantoprazole Sodium (Pantoprazole 40 Mg Tab) 40 mg PO PM [facility] Stop: 08/17/21 20:59 Last Admin: 07/23/21 20:21 Dose: 40 mg Documented by: Polyethylene Glycol (Polyethylene (Miralax) 17 Gm Pack) 17 gm PO DAILY PRN PRN Reason: Constipation Stop: 08/17/21 09:00 Ropinirole HCl (Ropinirole Hcl 2 Mg Tablet) 2 mg PO TID [facility] Stop: 08/17/21 09:59 Last Admin: 07/24/21 13:40 Dose: 2 mg Documented by: Rosuvastatin Calcium (Rosuvastatin Calcium 20 Mg Tab) 20 mg PO HS [facility] Stop: 08/17/21 20:59 Last Admin: 07/23/21 20:22 Dose: 20 mg Documented by: Saccharomyces Boulardii (Saccharomyces Boulardii 250 Mg Cap) 250 mg PO DAILY [facility] Stop: 08/19/21 08:59 Last Admin: 07/24/21 13:39 Dose: 250 mg Documented by: Spironolactone (Spironolactone 12.5 Mg Tab) 12.5 mg PO DAILY [facility] Stop: 08/17/21 09:44 Last Admin: 07/24/21 13:39 Dose: 12.5 mg Documented by: Vitamin D (Cholecalciferol 1,000 Units 25 Mcg Tab) 1,000 units PO QAM [facility] Stop: 08/17/21 09:44 Last Admin: 07/24/21 13:37 Dose: 1,000 units Documented by: Warfarin Sodium (Warfarin Sod 5 Mg Tab) 5 mg PO DAILY@1600 [facility] Stop: 08/23/21 15:59
[2021-07-24] MEDS: ROSUVASTATIN CALCIUM 20 MG TAB PO SCH (20:17)
[2021-07-24] MEDS: PANTOprazole 40 MG TAB PO SCH (20:19)
[2021-07-24 23:49] LABS: Partial Thromboplastin Ratio 1.3; Partial Thromboplastin Time 36.5 Seconds (21.0-31.0)
[2021-07-25] MEDS ORDERED: HEPARIN SOD (PORCINE) 1000 UNIT/ML IV ONE (00:45)
[2021-07-25] MEDS: LEVOTHYROXINE SODIUM 100 MCG TABLET PO SCH (05:25)
[2021-07-25] MEDS: BENZONATATE 100 MG CAPSULE PO PRN (05:29)
[2021-07-25 07:05] LABS: Hematocrit (blood only) 36.2 % (37-47); Hemoglobin 11.1 g/dL (12.0-16.0); Mean Corpuscular Hemoglobin 25.7 pg (25-34); Mean Corpuscular Hgb Conc 30.7 g/dL (32-36); Mean Corpuscular Volume 83.8 fL (80-100); Mean Platelet Volume 10.7 fL (7.4-10.4); Platelet Count 197 K/uL (130-400); RDW Coefficient of Variation 16.3 % (11.5-14.5); RDW Standard Deviation 49.6 fL (36.4-46.3); Red Blood Count 4.32 M/uL (4.2-5.4); White Blood Count 9.94 K/uL (4.8-10.8)
[2021-07-25] MEDS: FORMOTEROL 20 MCG/2 ML VIAL INH SCH (07:06)
[2021-07-25] MEDS: BUDESONIDE 0.25 MG/2 ML VIAL (PULMICORT) INH SCH (07:06)
[2021-07-25] MEDS: ALBUT/IPRATROP 3MG/0.5MG NEB 3 ML VIAL NEB SCH (07:07)
[2021-07-25 07:25] LABS: INR 1.3 (0.9-1.1); Partial Thromboplastin Ratio 2.6; Prothrombin Time 14.1 Seconds (9.0-12.0)
[2021-07-25 07:28] LABS: Partial Thromboplastin Time 71.5 Seconds (21.0-31.0)
[2021-07-25 07:34] LABS: BUN Creatinine Ratio 18.1 (10-20); Calcium 10.7 mg/dl (8.5-10.1); Creatinine Clr Calc Pharmacy 28.8 ml/min; Est GFR (African American) 41.7 ml/min; Potassium 3.6 mmol/L (3.5-5.1)
[2021-07-25] MEDS: FUROSEMIDE 40 MG/4 ML VIAL IV SCH (09:06)
[2021-07-25] MEDS: CITALOPRAM 20 MG TAB PO SCH (09:07)
[2021-07-25] MEDS: ASCORBIC ACID 500 MG TAB PO SCH (09:07)
[2021-07-25] MEDS: SPIRONOLACTONE 12.5 MG TAB PO SCH (09:07)
[2021-07-25] MEDS: FOLIC ACID 1 MG TAB PO SCH (09:07)
[2021-07-25] MEDS: SACCHAROMYCES BOULARDII 250 MG CAP PO SCH (09:07)
[2021-07-25] MEDS: CHOLECALCIFEROL 1,000 UNITS 25 MCG TAB PO SCH (09:07)
[2021-07-25] MEDS: rOPINIRole HCL 2 MG TABLET PO SCH ×2 (09:08→14:06)
[2021-07-25] MEDS: METOPROLOL TARTRATE 25 MG TAB PO SCH (09:08)
[2021-07-25] MEDS: guaiFENesin 600 MG TABCR PO SCH (09:08)
--- NOTE | 2021-07-25 10:03 | Cardiology Progress Note ---
Date of Service July 25, 2021 Assessment & Plan (1) Chronic heart failure with preserved ejection fraction (HFpEF): (2) H/O mitral valve replacement with mechanical valve: Plan: Patient clinically improved from heart failure standpoint and dysphagia as well We will discontinue IV furosemide CHF teaching instructions Patient to be discharged on 80 mg furosemide p.o. daily with cardiology follow- up 2 to 3 weeks Will need bridge anticoagulation for mechanical mitral valve patient approved for Lovenox for discharge later today Patient feels she has benefited from pulmonary therapies and anticipates outpatient follow Admission and Anticipated Discharge Date Admission Date: July 18, 2021 Subjective Patient seen and examined, chart, medications, telemetry reviewed. Feels improved this morning. Minimal productive cough. Able to eat meal last night and this morning without dysphagia. No bleeding difficulty Review of Systems Review of Systems: All systems reviewed & are unremarkable except as noted in Subjective Physical Exam Constitutional: WD/WN, vitals as above well developed and well nourished; no acute distress Respiratory: normal respiratory effort, lungs clear to auscultation normal respiratory effort; no respiratory distress and no labored breathing Auscultation: + diminished lung sounds; no rhonchi and no wheezes Cardiovascular: Rate/Rhythm: + irregularly irregular Heart Sounds: normal S1, normal S2 and + murmur (2/6 Holosystolic murmur, crisp valve closure click auscultated.) Vessels: radial pulses present; no JVD and no carotid bruit Extremities: no edema Gastrointestinal (Abdomen): normal bowel sounds, soft, nontender, no hepatosplenomegaly Inspection/Auscultation: abdomen normal to inspection and normal bowel sounds; abdomen not distended Percussion/Palpation: abdomen soft; abdomen nontender, no guarding and abdomen not rigid Neurologic: PERRL, EOMI, accommodation nl, no face palsy, no dysarthria CN's II-XI intact bilaterally and moves all extremities; no focal motor deficits Psychiatric: A+Ox3, euthymic affect Results & Data ([facility]) Vital Signs (Past 12 Hours) Vital Signs Temp Pulse Pulse Resp BP Pulse Ox 07/25/21 07:50 36.7 C 83 18 138/72 97 07/25/21 07:07 83 20 96 07/25/21 03:00 36.8 C 96 H 16 126/71 96 07/25/21 00:34 95 H 07/24/21 23:42 36.8 C 103 H 18 141/74 H 95 07/24/21 22:56 102 H 18 96 Laboratory Results Laboratory Results - last 24 hr 07/24/21 07/24/21 07/25/21 13:07 23:15 06:22 WBC 9.94 RBC 4.32 Hgb 11.1 L Hct 36.2 L MCV 83.8 MCH 25.7 MCHC 30.7 L RDW Std Deviation 49.6 H RDW Coeff of Courtney 16.3 H Plt Count 197 MPV 10.7 H PT 13.0 H INR 1.2 H APTT 28.8 36.5 H PTT Ratio 1.0 1.3 Sodium Potassium Chloride Carbon Dioxide Anion Gap BUN Creatinine Est Cr Clr Drug Dosing Est GFR ( Amer) Est GFR (Non-Af Amer) BUN/Creatinine Ratio Glucose Calcium 07/25/21 07/25/21 06:22 06:22 WBC RBC Hgb Hct MCV MCH MCHC RDW Std Deviation RDW Coeff of Courtney Plt Count MPV PT 14.1 H INR 1.3 H APTT 71.5 H* PTT Ratio 2.6 Sodium 135 L Potassium 3.6 Chloride 97 L Carbon Dioxide 30 Anion Gap 8 BUN 27 H Creatinine 1.49 H Est Cr Clr Drug Dosing 28.8 Est GFR ( Amer) 41.7 Est GFR (Non-Af Amer) 36.0 BUN/Creatinine Ratio 18.1 Glucose 116 H Calcium 10.7 H Medications Administered Current Medications Acetaminophen (Acetaminophen 325 Mg Tab) 650 mg PO Q4H PRN PRN Reason: Pain or Fever Stop: 08/17/21 09:00 Last Admin: 07/23/21 22:20 Dose: 650 mg Documented by: Albuterol (Albuterol Hfa 8 Gm Inhaler) 2 puffs INH Q4H PRN PRN Reason: Shortness Of Breath Or Wheezing Stop: 08/17/21 09:00 Albuterol (Albut/Ipratrop 3mg/0.5mg Neb 3 Ml Vial) 3 ml NEB Q8R [facility]; Protocol Stop: 08/21/21 14:59 Last Admin: 07/25/21 07:07 Dose: Not Given Documented by: Ascorbic Acid (Ascorbic Acid 500 Mg Tab) 500 mg PO DAILY [facility] Stop: 08/17/21 09:44 Last Admin: 07/25/21 09:07 Dose: 500 mg Documented by: Benzonatate (Benzonatate 100 Mg Capsule) 100 mg PO TID PRN PRN Reason: Cough Stop: 08/18/21 00:11 Last Admin: 07/25/21 05:29 Dose: 100 mg Documented by: Budesonide (Budesonide 0.25 Mg/2 Ml Vial (Pulmicort)) 0.25 mg INH BIDR [facility] Stop: 08/21/21 11:59 Last Admin: 07/25/21 07:06 Dose: 0.25 mg Documented by: Citalopram Hydrobromide (Citalopram 20 Mg Tab) 10 mg PO DAILY [facility] Stop: 08/17/21 09:59 Last Admin: 07/25/21 09:07 Dose: 10 mg Documented by: Folic Acid (Folic Acid 1 Mg Tab) 1 mg PO QAM [facility] Stop: 08/17/21 09:44 Last Admin: 07/25/21 09:07 Dose: 1 mg Documented by: Formoterol Fumarate (Formoterol 20 Mcg/2 Ml Vial) 20 mcg INH BIDR [facility]; Protocol Stop: 08/21/21 18:59 Last Admin: 07/25/21 07:06 Dose: 20 mcg Documented by: Furosemide (Furosemide 40 Mg/4 Ml Vial) 40 mg IV DAILY [facility] Stop: 08/21/21 08:59 Last Admin: 07/25/21 09:06 Dose: 40 mg Documented by: Guaifenesin (Guaifenesin 600 Mg Tabcr) 600 mg PO Q12 [facility] Stop: 08/22/21 04:24 Last Admin: 07/25/21 09:08 Dose: 600 mg Documented by: Heparin Sodium/Dextrose (Heparin Sodium/Dextrose) 25,000 units in 500 mls @ 13 mls/hr IV .Q24H [facility]; Protocol Stop: 08/23/21 15:59 Last Titration: 07/25/21 07:32 Dose: 650 units/hr, 13 mls/hr Documented by: Levalbuterol HCl (Levalbuterol Hcl 1.25 Mg/3 Ml Neb) 1.25 mg NEB Q2H PRN; Protocol PRN Reason: Shortness Of Breath Or Wheezing Stop: 08/17/21 09:00 Last Admin: 07/23/21 03:40 Dose: 1.25 mg Documented by: Levothyroxine Sodium (Levothyroxine Sodium 100 Mcg Tablet) 100 mcg PO DAILYBB [facility] Stop: 08/17/21 09:44 Last Admin: 07/25/21 05:25 Dose: 100 mcg Documented by: Menthol (Cough Drop (Sugar Free) Raúl 24 Raúl/1 Box) 1 raúl BUCCAL PRN PRN PRN Reason: Sore Throat Stop: 08/17/21 23:58 Last Admin: 07/19/21 00:24 Dose: 1 raúl Documented by: Metoclopramide HCl (Metoclopramide Hcl 10 Mg Tablet) 10 mg PO DAILY PRN PRN Reason: Nausea Stop: 08/17/21 23:46 Last Admin: 07/21/21 08:10 Dose: 10 mg Documented by: Metoprolol Tartrate (Metoprolol Tartrate 25 Mg Tab) 12.5 mg PO BID [facility] Stop: 08/17/21 09:44 Last Admin: 07/25/21 09:08 Dose: 12.5 mg Documented by: Nitroglycerin (Nitroglycerin Sl 0.4 Mg/Tab Tab) 0.4 mg SL UD PRN PRN Reason: Chest Pain Stop: 08/17/21 09:00 Last Admin: 07/22/21 16:12 Dose: 0.4 mg Documented by: Pantoprazole Sodium (Pantoprazole 40 Mg Tab) 40 mg PO PM [facility] Stop: 08/17/21 20:59 Last Admin: 07/24/21 20:19 Dose: 40 mg Documented by: Polyethylene Glycol (Polyethylene (Miralax) 17 Gm Pack) 17 gm PO DAILY PRN PRN Reason: Constipation Stop: 08/17/21 09:00 Ropinirole HCl (Ropinirole Hcl 2 Mg Tablet) 2 mg PO TID [facility] Stop: 08/17/21 09:59 Last Admin: 07/25/21 09:08 Dose: 2 mg Documented by: Rosuvastatin Calcium (Rosuvastatin Calcium 20 Mg Tab) 20 mg PO HS [facility] Stop: 08/17/21 20:59 Last Admin: 07/24/21 20:17 Dose: 20 mg Documented by: Saccharomyces Boulardii (Saccharomyces Boulardii 250 Mg Cap) 250 mg PO DAILY [facility] Stop: 08/19/21 08:59 Last Admin: 07/25/21 09:07 Dose: 250 mg Documented by: Spironolactone (Spironolactone 12.5 Mg Tab) 12.5 mg PO DAILY [facility] Stop: 08/17/21 09:44 Last Admin: 07/25/21 09:07 Dose: 12.5 mg Documented by: Vitamin D (Cholecalciferol 1,000 Units 25 Mcg Tab) 1,000 units PO QAM [facility] Stop: 08/17/21 09:44 Last Admin: 07/25/21 09:07 Dose: 1,000 units Documented by: Warfarin Sodium (Warfarin Sod 5 Mg Tab) 5 mg PO DAILY@1600 [facility] Stop: 08/23/21 15:59 Last Admin: 07/24/21 17:05 Dose: 5 mg Documented by:
[2021-07-25] MEDS ORDERED: IPRATROPIUM BROMIDE/ALBUTEROL respimat INH INH PRN (11:47)
--- NOTE | 2021-07-25 11:49 | Pulmonology Progress Note ---
Date of Service July 25, 2021 Assessment & Plan (1) Shortness of breath: (2) Abnormal chest CT: (3) Pleural effusion: (4) Acute bronchitis: (5) Asthmatic bronchitis: Plan: Impression: 65-year-old female Recommendations: 1. Cough: Suspect multifactorial due to combinations of possible old esophageal dysfunction/reflux. Cannot rule out component of asthmatic cough as well. No prior PFTs available. We will transition to Breo and as needed Combivent. If persistent issues, may consider use of hydrocodone or potential neurogenic modulators such as gabapentin. Can continue Tessalon and guaifenesin as needed. 2. Dyspnea on exertion: Again multifactorial. Optimization of the patient's underlying valvular heart disease recommended. 3. Possible bronchitic episode. Transition to Breo and as needed Combivent. Outpatient PFTs 4. Small right effusion: Suspect related to underlying cardiac issues. No indication for sampling currently. Continue to follow clinically. 5. No contraindication to anticoagulation from a pulmonary perspective. Management per primary service. The patient would like to follow-up with Dr. Sales in the outpatient setting at discharge. She should have outpatient PFTs when clinically stable. Okay to discharge from a pulmonary standpoint Admission and Anticipated Discharge Date Admission Date: July 18, 2021 Subjective Patient seen and examined. EMR reviewed. The patient feels that she is doing better today. Her cough is left. She is not wheezing. She not bringing up significant phlegm. She denies chest pain palpitations or shortness of breath. Her anticoagulation has been restarted. Review of Systems 2 Review of Systems: All systems reviewed & are unremarkable except as noted in Subjective Physical Exam Constitutional: WD/WN, vitals as above Neck: trachea midline, no thyromegaly Respiratory: normal respiratory effort, lungs clear to auscultation Cardiovascular: RRR, no murmur, no edema Gastrointestinal (Abdomen): normal bowel sounds, soft, nontender, no hepatosplenomegaly Musculoskeletal: Extremities: extremities normal to inspection Skin: no rashes, warm and dry Lymphatic: no cervical lymphadenopathy Results & Data Results & Data ([facility]) Vital Signs (Past 12 Hours) Vital Signs Temp Pulse Pulse Resp BP Pulse Ox 07/25/21 07:50 36.7 C 83 18 138/72 97 07/25/21 07:07 83 20 96 07/25/21 03:00 36.8 C 96 H 16 126/71 96 07/25/21 00:34 95 H Laboratory Results 07/25/21 06:22 07/25/21 06:22 Diagnostic Findings No new imaging PG Care Time/CCT Total # of Minutes Spent Total Time Spent with Patient: Total time spent is greater than 50% in coordination of care (as documented) at patient's floor/unit and/or counseling patient: Coding Level of Care Code 15133 Subseq Hosp Care Lvl 2 Diagnoses Shortness of breath R06.[address] R93.89 Pleural effusion J90 Acute bronchitis J20.9 Asthmatic bronchitis J45.909
[2021-07-25] MEDS ORDERED: FLUTICASONE/VILANTEROL 100/25MCG 14 PUFFS/INHALER INH SCH (12:00)
[2021-07-25] MEDS ORDERED: ENOXAPARIN 1 MG/KG SQ SCH (12:30)
[2021-07-25] MEDS ORDERED: ENOXAPARIN INJ 60 MG/0.6 ML SYR SQ SCH (13:00)
--- NOTE | 2021-07-25 14:35 | Discharge Summary ---
Date of Service July 25, 2021 Admission HPI Per Admitting Provider A 65-year-old female with past medical history significant for type 2 diabetes, currently not on any medications, chronic kidney disease stage III, hypothyroidism, hyperlipidemia, atrial fibrillation, tachybrady syndrome, h istory of syncope, status post loop recorder, chronic diastolic CHF, history of rheumatic heart disease, history of CAD, varicose veins of both legs, history of GERD, generalized osteoarthritis, restless legs syndrome, status post mechanical mitral valve replacement, history of TIA, history of recurrent falls, generalized anxiety disorder. The patient lives alone at home, ambulates with a walker. She comes here because of shortness of breath and cough. The patient is having cough for 2-3 months. She recently saw allergy doctor and thought it could be allergy to grass and she was prescribed albuterol p.r.n., but last 2 days cough had got really worse and tonight she was feeling short of breath. That is the reason she came to the hospital. She was saturating only 84% on room air. On 2 liters, she is saturating okay. Denies any fever and chills.Today she was feeling severe chest tightness. Denies any nausea. No vomiting, no abdominal pain. Normal bowel and bladder movements. She is also having lower extremity edema, which is getting a little worse. Denies any headache. No blurred visions. Has some runny nose. No sore throat. Appetite is okay. Sometimes food gets stuck in her throat. Afebrile. Currently, resting comfortably and hemodynamically stable. Principal Diagnosis Acute on chronic diastolic CHF Bronchitis Chronic cough Anticoagulated on coumadin Mechanical Mitral Valve Dysphagia Possible Esophageal web, s/p dilation Hypokalemia Discharge Exam Patient feels well. Breathing back to baseline, leg swelling resolved. Still with chronic cough. Tolerating diet Gen- appears well, no acute distress CV- systolic murmur, regular rate and rhythm Pulm- breathing comfortably on room air, no wheezing/rhonchi Abd- soft Extr- no edema Discharge Data Allergies Allergy/AdvReac Type Severity Reaction Status Date / Time hydroxyzine Allergy Severe DYSTONIA Verified 07/18/21 07:32 prochlorperazine Allergy Severe NUCHAL Verified 07/18/21 07:32 DYSTONIA promethazine Allergy Severe NUCHAL Verified 07/18/21 07:32 DYSTONIA oxycodone Allergy Intermediate Numbness Verified 07/18/21 07:32 PERRY Inhibitors AdvReac Intermediate COUGH Verified 07/18/21 07:32 lisinopril AdvReac Intermediate Cough Verified 07/18/21 07:32 metformin AdvReac Intermediate DIARRHEA Verified 07/18/21 07:32 parsley AdvReac Intermediate AGITATION Verified 07/18/21 07:32 tetracycline AdvReac Intermediate DYSPEPSIA Verified 07/18/21 07:32 gabapentin AdvReac Drowsy Verified 07/18/21 07:32 NAUSEA MEDICINES Allergy Unknown SEE NOTE Uncoded 07/18/21 07:32 BELOW Consultations 07/18/21 05:31 ED Decision to Admit Stat 07/18/21 09:01 Consult Cardiology Routine 07/20/21 11:02 Consult Gastroenterology Routine 07/21/21 09:46 Consult Pulmonology Routine Procedures Performed Operation Date: 07/24/21 17:45 Actual Procedures p EGD Dilatation - Sil Matias, Ordered Studies 07/18/21 04:36 CT angio chest PE protocol Urgent 07/18/21 09:01 US venous doppler LE BI Urgent 07/20/21 10:30 FL barium swallow Routine Hospital Course Ms Abdi Bowling is a 65 year old female with mechanical mitral valve on coumadin, chronic diastolic CHF, paroxysmal A fib and hypothyroidism was admitted 07/18 for shortness of breath and leg swelling. She was placed on parenteral diuresis and with this her shortness of breath, pleural effusion and leg swelling resolved. While here, she was complaining of ongoing dysphagia especially to solid food. She was seen by HEALTH RESEARCHER and had a barium swallow study, during the study the barium pill briefly got stuck in her esophagus and imaging revealed possible esophageal web. She subsequently underwent EGD 07/24 with successful esophageal dilation. Her procedure was delayed due to her being on coumadin and requiring INR to slowly drift down to normal while being on a heparin drip. She needs to follow up with her PCP and GI, and she may benefit from ongoing HEALTH RESEARCHER therapy. While here, she also reported a chronic cough and was seen by Pulmonology for optimization prior to EGD. She will follow up with Dr Sales after discharge for PFTs and at discharge was given a prescription for Breo and Combivent. She finished 5 days of doxycycline for empiric treatment for bronchitis. At the time of discharge, she was in stable condition. She understood her medication changes and has a repeat INR for the following day with follow up at the coumadin clinic. Changes to her medications are as follows: 1) continued on home coumadin regimen. INR today was 1.3. Repeat INR 07/25. Goal INR 3-3.5 2) lovenox 60mg SQ BID x 7 days. While iNR is less than 3. Coverage was verified and verified with patient that she can afford copay 3) Lasix 80mg daily (previously was on 40mg and 80mg on alternating days) 4) Breo daily and Combivent PRN. As recommended by Pulmonology 5) Mucinex 600mg BID Total Time Total Time Spent Total Time Spent (In Minutes): 45 Discharge Plan Discharge Items Patient Disposition: Home - Self-Care Reason For Visit: SOB,COUGH Discharge Diagnosis: Acute on chronic diastolic CHF Bronchitis Chronic cough Anticoagulated on coumadin Mechanical Mitral Valve Dysphagia Possible Esophageal web, s/p dilation Hypokalemia Condition on Discharge: Good Activity: Resume your previous activity Non-emergency contact: Primary Care Provider, Gas Appliance Adjuster, Pathology Teacher and Bean Weigher Call non-emergency contact if: your symptoms worsen Follow-up/Referrals: Rashel Sales MD [Physician] - Judd Sutton DO [Gas Appliance Adjuster] - John Blanco MD [Primary Care Provider] - Diet: Heart Healthy Addtl Attending Provider Instructions: For your heart failure You were admitted for shortness of breath and leg swelling. You were treated for volume overload (congestive heart failure) and received IV lasix while here. At the time of discharge, you were placed on lasix 80mg daily. Please follow up with your Gas Appliance Adjuster in 2-3 weeks for further management For your mechanical valve Please resume your coumadin dose and follow up with the coumadin clinic as scheduled. You were give a prescription for 7 days of lovenox while your INR ge ts back into therapeutic range. Goal INR 3-3.5 For your difficulty swallowing You had a barium swallow here which showed possibly a esophageal web. You had a follow up EGD 07/24 and had a dilation. You should follow up with your oral and maxillofacial surgery resident after discharge and have ongoing speech/swallow therapy and to determine if you need additional testing. For your chronic cough You finished a 5 day doxycycline for coverage of bronchitis. You were seen by Dr Sales while here and should follow up with him after discharge for lung function studies. You will be prescribed Breo 100/25 one puff daily and Combivent 1 puff every 6 hours as needed. Pending Studies at Discharge: No Stand-Alone Forms: My [facility], Smoking Cessation Medications and DC Order Prescriptions: New furosemide 80 mg Tablet 80 mg PO QAM Qty: 30 RF: 0 fluticasone furoate-vilanterol [Breo Ellipta] 100-25 mcg/dose Blister With Device 1 ea inhalation DAILY 30 Days Qty: 60 RF: 0 guaifenesin [Mucinex] 600 mg Tablet Extended Release 12hr 600 mg PO Q12 Qty: 30 RF: 0 enoxaparin [Lovenox] 60 mg/0.6 mL syringe 60 mg subcut Q12H 7 Days Qty: 8.4 RF: 0 Combivent Respimat 20-100 mcg/actuation mist 1 puff inhalation Q6H PRN (Reason: shortness of breath or wheezing) Qty: 4 RF: 0 Continued levothyroxine 100 mcg tablet 100 mcg PO DAILYBB RF: 0 folic acid 1 mg Tablet 1 mg PO QAM Qty: 30 RF: 0 ropinirole 2 mg tablet 2 mg PO TID RF: 0 acetaminophen [Tylenol Extra Strength] 500 mg Tablet 500 mg PO Q6H PRN (Reason: Pain) RF: 0 spironolactone 25 mg Tablet 12.5 mg PO DAILY RF: 0 magnesium hydroxide [Milk of Magnesia] 400 mg/5 mL Suspension 5 ml PO DAILY PRN (Reason: Constipation) RF: 0 nitroglycerin [Nitrostat] 0.4 mg Tablet, Sublingual 0.4 mg Sublingual DIRECTED PRN (Reason: Chest Pain) RF: 0 omeprazole 20 mg Capsule,Delayed Release(Dr/Ec) 20 mg PO PM RF: 0 cholecalciferol (vitamin D3) [Vitamin D3] 1,000 unit Capsule 1,000 unit PO QAM RF: 0 ascorbic acid (vitamin C) [Vitamin C] 500 mg Tablet 500 mg PO DAILY RF: 0 citalopram 10 mg tablet 10 mg PO DAILY RF: 0 warfarin 5 mg Tablet 5 mg PO DIRECTED RF: 0 tramadol 50 mg tablet 50 mg PO TID PRN (Reason: Pain) RF: 0 benzonatate 100 mg capsule 100 mg PO TID RF: 0 bisacodyl 10 mg Suppository 10 mg ID DAILY RF: 0 metoclopramide HCl 10 mg Tablet 10 mg PO DAILY PRN (Reason: Nausea) RF: 0 sennosides 17.2 mg Tablet 17.2 mg PO HS PRN (Reason: Constipation) RF: 0 magnesium glycinate 100 mg Tablet 0 mg PO DAILY RF: 0 rosuvastatin 20 mg tablet 20 mg PO HS RF: 0 metoprolol tartrate 25 mg Tablet 12.5 mg PO BID Qty: 30 RF: 2 Discontinued furosemide 40 mg tablet 80 mg PO MOWEFRSA RF: 0 albuterol sulfate 90 mcg/actuation HFA aerosol inhaler 2 puff INHALATION Q4H PRN (Reason: Shortness Of Breath Or Wheezing) RF: 0 furosemide 40 mg tablet 40 mg PO SUTUTH RF: 0 Discharge Orders: Discharge Order (Routine); Ordered 07/25/21 Ordered By: Berny Aranda/Other Patient Handouts: Managing Type 2 Diabetes Admission Data Admit Date/Time: 07/18/21 06:33 Attending Provider: Berny Calderon Admit Provider: Jake Pollard Primary Care Provider: John Blanco Other Providers: Jake Pollard ; Nehemias Salcido ; Liam Bell ; Louie Childress ; Rashel Sales Other Interventions: Discharge Summary Assessment (RN) Last Done: 07/25/21 14:11
[2021-07-26] MEDS ORDERED: FUROSEMIDE 80 MG TAB PO SCH (09:00)
== END 2021-07-25 15:58 | disposition home or self-care (01) | DRG 291 ==
LOC: ED 03:49 → EDINP 06:33 → SUATTDRO 06:33 → 2S 08:59

== ENCOUNTER 2021-08-02 12:14 | Inpatient (IN) ==
[2021-08-02] MEDS ORDERED: ONDANSETRON INJ 2 MG/ML 2 ML VIAL IV STA (13:29)
[2021-08-02] MEDS ORDERED: MoRPHine SULFATE 10 MG/ML CARP/VIAL IV STA (13:29)
--- NOTE | 2021-08-02 13:29 | Emergency Department Note ---
Impression & Plan Hematoma of left thigh, Mechanical heart valve present ED Provider Note NAME: ALCIDES MAST AGE: 66 SEX: F : 1955 ARRIVES VIA: Ambulance INFORMANT: Patient ED PROVIDER(S): Henrik Lopez DO CHIEF COMPLAINT: Severe leg pain HPI: Patient is a 66-year-old female that presents to the ER for severe left leg pain. This is has been present for the past 2 days. Its 10 out of 10. She isn't able to walk or move it. She admits that it feels slightly different but she does have sensation present. Pain is focal over the left hip where it has bruising swelling and she feels a mass. No falls since June 20. She denies any headache or change in vision. No chest pain or shortness of breath. No nausea, vomiting, or diarrhea. No dysuria, urgency, or frequency. No other exacerbating or remitting factors. ROS: See above HPI for pertinent positives & negatives. A total of 10 systems reviewed and were otherwise negative. PAST MEDICAL HISTORY:See Below PAST SURGICAL HISTORY:See Below FAMILY HISTORY:See Below SOCIAL HISTORY:See Below HOME MEDICATIONS:See Below ALLERGIES:See Below VITALS:See Below PHYSICAL EXAMINATION: GENERAL: Sitting up in bed, alert, well appearing, well nourished, no distress, non-toxic EYE EXAM: normal conjunctiva. PERRL and EOM's grossly intact. OROPHARYNX: no exudate, no erythema, lips, buccal mucosa, and tongue normal and mucous membranes are moist NECK: supple, no nuchal rigidity, no adenopathy, non-tender LUNGS: Clear to auscultation. Normal chest wall mechanics HEART: no murmurs, S1 normal and S2 normal ABDOMEN: abdomen soft, non-tender, normo-active bowel sounds, no masses, no rebound or guarding. UPPER EXTREMITIES: upper extremities are grossly normal. LOWER EXTREMITIES: Flexion-extension of the left hip knee and ankle intact. Bruising and swelling over the left hip NEURO EXAM: Normal sensorium, cranial nerves II-XII grossly intact, normal speech, no gross weakness of arms, no gross weakness of legs. MEDICAL DECISION MAKING: Patient is a 66-year-old female with a mechanical mitral valve that is close to 25 years old that presents the ER for severe left thigh pain. She is initially writhing around in bed holding her left thigh. She was given IV fluids and IV morphine. Labs show mild leukocytosis. Hemoglobin was 10 with a baseline of what appears to be about 10.7-11. Platelets were appropriate. INR at 2.7. BMP with mild hyponatremia 133 and a potassium of 3.3. Case was discussed with Dr. Hadley Molina who follows this patient as an outpatient. Recommends 1 mg IV vitamin K as her INR normally trends up while in the hospital. She should not be completely reversed as she will thrombose. Patient was updated in regards to this. The plan was to bring her INR down just slightly in order to prevent any additional bleeding and to help with the pain. There is no active extravasation but there is extraperitoneal blood as well as intramuscular hemorrhage per the CT report. Triage Nursing notes reviewed. Limited review of prior medical records performed Vital Signs: reviewed and remarkable for HTN Differential diagnosis: DVT, musculoskeletal, infection, joint effusion, trauma, lymphedema, idiopathic, CHF, as well as other pathologies. ER treatment provided: See below Diagnostics interpreted by me: ECG: none Cardiac Monitoring: An order was placed for continuous cardiac monitoring. The monitor shows a rate of 70 with sinus rhythm. Laboratory studies: As stated above and show below. Imaging studies: CT of the left thigh as described above Consultation(s): Hadley Molina for reversal plan Discussed with the hospitalist for further evaluation from [facility] Procedures: none Critical Care: None Past Med/Surg History Medical History (Updated 08/02/21 @ 18:14 by Henrik Lopez DO) A-fib Anemia chronic; baseline hgb 9-10 range per chart review Anxiety CKD (chronic kidney disease), stage III Diabetes diet controlled Encounter for pre-operative examination GERD (gastroesophageal reflux disease) controlled History of blood transfusion autologous s/p MVR (1993), 09/2018 (post-op) HTN (hypertension) Hx of myocardial infarction 2000, medical management Hyperlipidemia Hypothyroidism Migraines 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 migraine vs. stress related)-- plavix since discontinued Surgical History (Updated 08/02/21 @ 18:14 by Henrik Lopez DO) H/O radioactive iodine thyroid ablation H/O: hysterectomy History of cardiac cath 2000= NO STENTS History of colonoscopy History of tonsillectomy and adenoidectomy History of total left knee replacement Hx of appendectomy Hx of cholecystectomy Hx of mitral valve replacement 1993 (rheumatic valvular disease) Hx of tubal ligation Family History Uncle , of [place] in his 40s Coronary heart disease Social History Smoking Status: Never smoker Second Hand Exposure: No; Hx Alcohol Use: Yes Alcohol type: wine Hx Substance Use: No Preferred Language: Croatian Communication Ability: Effective Mental Health Counselor Required: No Beliefs That Will Affect Care: None marital status: Single Current Living Situation: Alone Current Living Situation Comment: takes care of mother current occupational status: disabled How many Children do You have: 0 Feels Safe at Home: Yes Assistive Devices: Cane and Walker Allergies Allergies Allergy/AdvReac Type Severity Reaction Status Date / Time hydroxyzine Allergy Severe DYSTONIA Verified 08/02/21 15:44 prochlorperazine Allergy Severe NUCHAL Verified 08/02/21 15:44 DYSTONIA promethazine Allergy Severe NUCHAL Verified 08/02/21 15:44 DYSTONIA oxycodone Allergy Intermediate Numbness Verified 08/02/21 15:44 PERRY Inhibitors AdvReac Intermediate COUGH Verified 08/02/21 15:44 lisinopril AdvReac Intermediate Cough Verified 08/02/21 15:44 metformin AdvReac Intermediate DIARRHEA Verified 08/02/21 15:44 parsley AdvReac Intermediate AGITATION Verified 08/02/21 15:44 tetracycline AdvReac Intermediate DYSPEPSIA Verified 08/02/21 15:44 gabapentin AdvReac Drowsy Verified 08/02/21 15:44 NAUSEA MEDICINES Allergy Unknown SEE NOTE Uncoded 08/02/21 15:44 BELOW Home Meds Home Medications Medication Instructions Recorded Confirmed cholecalciferol (vitamin D3) 25 1,000 unit PO QAM 12/05/17 08/02/21 mcg (1,000 unit) capsule (Vitamin D3) nitroglycerin 0.4 mg sublingual 0.4 mg SUBLINGUAL DIRECTED PRN 12/05/17 08/02/21 tablet (Nitrostat) omeprazole 20 mg capsule,delayed 20 mg PO PM 12/05/17 08/02/21 release levothyroxine 100 mcg tablet 100 mcg PO DAILYBB 05/18/18 08/02/21 ropinirole 2 mg tablet 2 mg PO TID 10/08/18 08/02/21 acetaminophen 500 mg tablet 500 mg PO Q6H PRN 12/31/19 08/02/21 (Tylenol Extra Strength) magnesium hydroxide 400 mg/5 mL 5 ml PO DAILY PRN 12/31/19 08/02/21 oral suspension (Milk of Magnesia) spironolactone 25 mg tablet 12.5 mg PO DAILY 12/31/19 08/02/21 rosuvastatin 20 mg tablet 20 mg PO HS 10/15/20 08/02/21 ascorbic acid (vitamin C) 500 mg 500 mg PO DAILY 03/31/21 08/02/21 tablet (Vitamin C) benzonatate 100 mg capsule 100 mg PO TID 07/18/21 08/02/21 bisacodyl 10 mg rectal suppository 10 mg DC DAILY 07/18/21 08/02/21 citalopram 10 mg tablet 10 mg PO DAILY 07/18/21 08/02/21 magnesium glycinate 100 mg tablet 0 mg PO DAILY 07/18/21 08/02/21 metoclopramide HCl 10 mg tablet 10 mg PO DAILY PRN 07/18/21 08/02/21 sennosides 17.2 mg tablet 17.2 mg PO HS PRN 07/18/21 08/02/21 tramadol 50 mg tablet 50 mg PO TID PRN 07/18/21 08/02/21 warfarin 5 mg tablet 5 mg PO DIRECTED 07/18/21 08/02/21 albuterol sulfate 90 mcg/actuation 2 puff INHALATION Q4 PRN 08/02/21 08/02/21 aerosol inhaler azelastine 137 mcg (0.1 %) nasal 2 spray INTRANASAL AMHS 08/02/21 08/02/21 spray aerosol ipratropium 0.5 mg-albuterol 3 mg 3 ml INHALATION QID 08/02/21 08/02/21 (2.5 mg base)/3 mL nebulization soln Previous Rx's Medication Instructions Recorded folic acid 1 mg tablet 1 mg PO QAM #30 tab 05/21/18 metoprolol tartrate 25 mg tablet 12.5 mg PO BID #30 tab 04/09/21 fluticasone furoate 100 1 ea INHALATION DAILY 30 Days #60 07/25/21 mcg-vilanterol 25 mcg/dose ea inhalation powder (Breo Ellipta) furosemide 80 mg tablet 80 mg PO QAM #30 tab 07/25/21 guaifenesin 600 mg tablet, 600 mg PO Q12 #30 tab 07/25/21 extended release 12 hr (Mucinex) ipratropium 20 mcg-albuterol 100 1 puff INHALATION Q6H PRN #4 g 07/25/21 mcg/actuation mist for inhalation (Combivent Respimat) Results & Data (ED) Vital Signs Vital Signs - 24 hr 08/02/21 12:28 08/02/21 13:57 08/02/21 15:00 Temperature 37.0 C Temperature Source Oral Pulse Rate 90 Pulse Rate [Right Finger] 85 69 Pulse Rhythm [Right Finger] Regular Respiratory Rate 20 19 19 Respiratory Effort / Characteristics Non-Labored Non-Labored Spontaneous Non-Labored Spontaneous Respiratory Depth Normal Normal Normal Blood Pressure 147/102 H Blood Pressure [Right Arm] 117/78 Blood Pressure Mean 117 Blood Pressure Mean [Right Arm] 91 Pulse Oximetry 98 92 95 Oxygen Delivery Method Room Air Room Air Room Air Sepsis Recent Fever Within 48 Hours No Sepsis New/Unexplained Change in Mental Status No Sepsis Action Taken by Nursing No Action Required Laboratory Data Result diagrams: 08/02/21 13:13 08/02/21 13:13 Lab Results 08/02/21 08/02/21 08/02/21 Range/Units 13:13 13:13 13:13 WBC 11.39 H (4.8-10.8) K/uL RBC 3.90 L (4.2-5.4) M/uL Hgb 10.1 L (12.0-16.0) g/dL Hct 32.5 L (37-47) % MCV 83.3 (80-100) fL MCH 25.9 (25-34) pg MCHC 31.1 L (32-36) g/dL RDW Std Deviation 49.1 H (36.4-46.3) fL RDW Coeff of Courtney 16.2 H (11.5-14.5) % Plt Count 221 (130-400) K/uL MPV 11.3 H (7.4-10.4) fL Immature Gran % (Auto) 0.3 % Neut % (Auto) 86.7 % Lymph % (Auto) 4.1 % [place] % (Auto) 8.3 % Eos % (Auto) 0.4 % Baso % (Auto) 0.2 % Neut # (Auto) 9.89 H (1.4-6.5) K/uL Lymph # (Auto) 0.47 L (1.2-3.4) K/uL [place] # (Auto) 0.94 H (0.11-0.59) K/uL Eos # (Auto) 0.04 (0-0.5) K/uL Baso # (Auto) 0.02 (0-0.2) K/uL Immature Gran # (Auto) 0.03 H (0.00-0.02) K/uL PT 27.1 H (9.0-12.0) Seconds INR 2.7 H (0.9-1.1) Sodium 133 L (136-145) mmol/L Potassium 3.3 L (3.5-5.1) mmol/L Chloride 94 L (98-107) mmol/L Carbon Dioxide 34 H (21-32) mmol/L Anion Gap 5 (3-11) BUN 27 H (6-23) mg/dl Creatinine 1.52 H (0.6-1.2) mg/dl Est Cr Clr Drug Dosing 25.4 ml/min Est GFR ( Amer) 40.4 ml/min Est GFR (Non-Af Amer) 34.9 ml/min BUN/Creatinine Ratio 17.8 (10-20) Glucose 271 H (70-99(Fasting)) mg/dl Calcium 10.0 (8.5-10.1) mg/dl SARS-CoV-2, RNA, NAAT (NEGATIVE) 08/02/21 Range/Units 16:28 WBC (4.8-10.8) K/uL RBC (4.2-5.4) M/uL Hgb (12.0-16.0) g/dL Hct (37-47) % MCV (80-100) fL MCH (25-34) pg MCHC (32-36) g/dL RDW Std Deviation (36.4-46.3) fL RDW Coeff of Courtney (11.5-14.5) % Plt Count (130-400) K/uL MPV (7.4-10.4) fL Immature Gran % (Auto) % Neut % (Auto) % Lymph % (Auto) % [place] % (Auto) % Eos % (Auto) % Baso % (Auto) % Neut # (Auto) (1.4-6.5) K/uL Lymph # (Auto) (1.2-3.4) K/uL [place] # (Auto) (0.11-0.59) K/uL Eos # (Auto) (0-0.5) K/uL Baso # (Auto) (0-0.2) K/uL Immature Gran # (Auto) (0.00-0.02) K/uL PT (9.0-12.0) Seconds INR (0.9-1.1) Sodium (136-145) mmol/L Potassium (3.5-5.1) mmol/L Chloride (98-107) mmol/L Carbon Dioxide (21-32) mmol/L Anion Gap (3-11) BUN (6-23) mg/dl Creatinine (0.6-1.2) mg/dl Est Cr Clr Drug Dosing ml/min Est GFR ( Amer) ml/min Est GFR (Non-Af Amer) ml/min BUN/Creatinine Ratio (10-20) Glucose (70-99(Fasting)) mg/dl Calcium (8.5-10.1) mg/dl SARS-CoV-2, RNA, NAAT NEGATIVE (NEGATIVE) Administered Medications Discontinued Medications Phytonadione 10 mg/ Dextrose 51 mls @ 102 mls/hr IV ONE ONE Stop: 08/02/21 16:59 Last Admin: 08/02/21 17:15 Dose: Not Given Documented by: [id number] Phytonadione 1 mg/ Dextrose 50.1 mls @ 100.5 mls/hr IV ONE ONE Stop: 08/02/21 17:09 Last Infusion: 08/02/21 17:59 Dose: 0 mls/hr Documented by: [id number] Admin: 08/02/21 17:15 Dose: 100.5 mls/hr Documented by: [id number] Ioversol (Optiray 320 125ml) 118 ml IV ONCE ONE Stop: 08/02/21 15:45 Last Admin: 08/02/21 15:45 Dose: 118 ml Documented by: [id number] Morphine Sulfate (Morphine Sulfate 10 Mg/Ml Carp/Vial) 6 mg IV NOW STA Stop: 08/02/21 13:30 Last Admin: 08/02/21 13:49 Dose: 6 mg Documented by: [id number] Ondansetron HCl (Ondansetron Inj 2 Mg/Ml 2 Ml Vial) 4 mg IV NOW STA Stop: 08/02/21 13:30 Last Admin: 08/02/21 13:50 Dose: 4 mg Documented by: [id number] Imaging Data Radiologist's Impression: Lower Extremity CTA 08/02/21 13:26 CT ANGIOGRAPHY OF THE LEFT THIGH/FEMUR CLINICAL HISTORY: Severe left thigh pain on coumadin w/ swelling. COMPARISON STUDY: CT angiography of the abdomen and pelvis December 15, 2017. TECHNIQUE: Helical axial images of the left thigh/femur were obtained during arterial phase following intravenous injection of 118 cc Optiray 320 IV. Sagittal coronal reconstructed reviewed as well as maximal intensity projections on an independent 3-D workstation. Automated exposure control was utilized for the study. A dose lowering technique was utilized adhering to the principles of ALARA. FINDINGS: Note is made of partially visualized intramuscular hemorrhage within left iliacus and iliopsoas muscles. This represents at least moderate acute intramuscular hemorrhage. There is also a small amount of intramuscular hemorrhage within the left adductor muscles. Small amount of associated extraper itoneal hemorrhage within the left hemipelvis is noted. No active extravasation is identified within visualized portions of the intramuscular hemorrhage. The left common femoral, superficial femoral and profunda vessels are patent. No aneurysm is identified. A focus of fat necrosis within the subcutaneous tissues of the lateral left thigh is noted. Left knee arthroplasty is noted. There is no acute fracture within the left femur. No suspicious osseous lesion is noted. Bladder is distended. IMPRESSION: 1. Acute intramuscular hemorrhage within the left iliacus, iliopsoas muscles and adductor muscles. Associated extraperitoneal hemorrhage. At least moderate intramuscular hemorrhage. Proximal extent of intramuscular hemorrhage not imaged on this exam. No active extravasation within visualized portions of the intramuscular hemorrhage. 2. Patent left common femoral and superficial femoral arteries. ACT 112: Negative or not required by law. Electronically signed by: Trey Fox M.D. 08/02/2021 4:10 PM Discharge Plan Visit Data Chief Complaint: Leg Injury/Pain ED Provider: Henrik Lopez Discharge Problem: Hematoma of left thigh, Mechanical heart valve present Forms Stand Alone Forms: My [facility] Prescriptions Prescriptions: No Action levothyroxine 100 mcg tablet 100 mcg PO DAILYBB RF: 0 folic acid 1 mg Tablet 1 mg PO QAM Qty: 30 RF: 0 ropinirole 2 mg tablet 2 mg PO TID RF: 0 acetaminophen [Tylenol Extra Strength] 500 mg Tablet 500 mg PO Q6H PRN (Reason: Pain) RF: 0 spironolactone 25 mg Tablet 12.5 mg PO DAILY RF: 0 magnesium hydroxide [Milk of Magnesia] 400 mg/5 mL Suspension 5 ml PO DAILY PRN (Reason: Constipation) RF: 0 nitroglycerin [Nitrostat] 0.4 mg Tablet, Sublingual 0.4 mg Sublingual DIRECTED PRN (Reason: Chest Pain) RF: 0 omeprazole 20 mg Capsule,Delayed Release(Dr/Ec) 20 mg PO PM RF: 0 cholecalciferol (vitamin D3) [Vitamin D3] 1,000 unit Capsule 1,000 unit PO QAM RF: 0 ascorbic acid (vitamin C) [Vitamin C] 500 mg Tablet 500 mg PO DAILY RF: 0 citalopram 10 mg tablet 10 mg PO DAILY RF: 0 warfarin 5 mg Tablet 5 mg PO DIRECTED RF: 0 tramadol 50 mg tablet 50 mg PO TID PRN (Reason: Pain) RF: 0 benzonatate 100 mg capsule 100 mg PO TID RF: 0 bisacodyl 10 mg Suppository 10 mg DC DAILY RF: 0 metoclopramide HCl 10 mg Tablet 10 mg PO DAILY PRN (Reason: Nausea) RF: 0 sennosides 17.2 mg Tablet 17.2 mg PO HS PRN (Reason: Constipation) RF: 0 magnesium glycinate 100 mg Tablet 0 mg PO DAILY RF: 0 furosemide 80 mg Tablet 80 mg PO QAM Qty: 30 RF: 0 fluticasone furoate-vilanterol [Breo Ellipta] 100-25 mcg/dose Blister With Device 1 ea inhalation DAILY 30 Days Qty: 60 RF: 0 guaifenesin [Mucinex] 600 mg Tablet Extended Release 12hr 600 mg PO Q12 Qty: 30 RF: 0 Combivent Respimat 20-100 mcg/actuation mist 1 puff inhalation Q6H PRN (Reason: shortness of breath or wheezing) Qty: 4 RF: 0 rosuvastatin 20 mg tablet 20 mg PO HS RF: 0 metoprolol tartrate 25 mg Tablet 12.5 mg PO BID Qty: 30 RF: 2 azelastine 137 mcg (0.1 %) aerosol,spray 2 spray INTRANASAL AMHS RF: 0 albuterol sulfate 90 mcg/actuation HFA aerosol inhaler 2 puff INHALATION Q4 PRN (Reason: cough,sob,wheeze) RF: 0 ipratropium-albuterol 0.5 mg-3 mg(2.5 mg base)/3 mL solution for nebulization 3 ml INHALATION QID RF: 0 Referrals Referrals: John Blanco MD [Primary Care Provider] - Discharge Problem: Hematoma of left thigh Qualifiers: Encounter type: initial encounter Qualified Code(s): S70.12XA - Contusion of left thigh, initial encounter
[2021-08-02 13:45] LABS: Basophils # (auto) 0.02 K/uL (0-0.2); Basophils % (auto) 0.2 %; Eosinophils # (auto) 0.04 K/uL (0-0.5); Eosinophils % (auto) 0.4 %; Hematocrit (blood only) 32.5 % (37-47); Hemoglobin 10.1 g/dL (12.0-16.0); Immature Granulocytes # (auto) 0.03 K/uL (0.00-0.02); Immature Granulocytes % (auto) 0.3 %; Lymphocytes # (auto) 0.47 K/uL (1.2-3.4); Lymphocytes % (auto) 4.1 %; Mean Corpuscular Hemoglobin 25.9 pg (25-34); Mean Corpuscular Hgb Conc 31.1 g/dL (32-36); Mean Corpuscular Volume 83.3 fL (80-100); Mean Platelet Volume 11.3 fL (7.4-10.4); Monocytes # (auto) 0.94 K/uL (0.11-0.59); Monocytes % (auto) 8.3 %; Neutrophils # (auto) 9.89 K/uL (1.4-6.5); Neutrophils % (auto) 86.7 %; Platelet Count 221 K/uL (130-400); RDW Coefficient of Variation 16.2 % (11.5-14.5); RDW Standard Deviation 49.1 fL (36.4-46.3); White Blood Count 11.39 K/uL (4.8-10.8)
[2021-08-02 14:03] LABS: INR 2.7 (0.9-1.1); Prothrombin Time 27.1 Seconds (9.0-12.0)
[2021-08-02 14:11] LABS: BUN Creatinine Ratio 17.8 (10-20); Creatinine Clr Calc Pharmacy 25.4 ml/min; Est GFR (African American) 40.4 ml/min; Est GFR (Non-African American) 34.9 ml/min; Potassium 3.3 mmol/L (3.5-5.1)
[2021-08-02] MEDS ORDERED: OPTIRAY 320 125ml IV ONE (15:44)
--- NOTE | 2021-08-02 16:11 | CT Scan Report ---
CT ANGIOGRAPHY OF THE LEFT THIGH/FEMUR CLINICAL HISTORY: Severe left thigh pain on coumadin w/ swelling. COMPARISON STUDY: CT angiography of the abdomen and pelvis December 15, 2017. TECHNIQUE: Helical axial images of the left thigh/femur were obtained during arterial phase following intravenous injection of 118 cc Optiray 320 IV. Sagittal coronal reconstructed reviewed as well as m aximal intensity projections on an independent 3-D workstation. Automated exposure control was utiliz ed for the study. A dose lowering technique was utilized adhering to the principles of ALARA. FINDINGS: Note is made of partially visualized intramuscular hemorrhage within left iliacus and iliop soas muscles. This represents at least moderate acute intramuscular hemorrhage. There is also a small amount of intramuscular hemorrhage within the left adductor muscles. Small amount of associated extr aperitoneal hemorrhage within the left hemipelvis is noted. No active extravasation is identified wit hin visualized portions of the intramuscular hemorrhage. The left common femoral, superficial femoral and profunda vessels are patent. No aneurysm is identified. A focus of fat necrosis within the subcu taneous tissues of the lateral left thigh is noted. Left knee arthroplasty is noted. There is no acut e fracture within the left femur. No suspicious osseous lesion is noted. Bladder is distended. IMPRESSION: 1. Acute intramuscular hemorrhage within the left iliacus, iliopsoas muscles and adductor muscles. A ssociated extraperitoneal hemorrhage. At least moderate intramuscular hemorrhage. Proximal extent of intramuscular hemorrhage not imaged on this exam. No active extravasation within visualized portions of the intramuscular hemorrhage. 2. Patent left common femoral and superficial femoral arteries. ACT 112: Negative or not required by law. Electronically signed by: Trey Fox M.D. 08/02/2021 4:10 PM
[2021-08-02] MEDS ORDERED: PHYTONADIONE 10 MG in DEXTROSE 5% 50 ML IV ONE (16:30)
[2021-08-02] MEDS ORDERED: PHYTONADIONE 1 MG in DEXTROSE 5% 50 ML IV ONE (16:40)
--- NOTE | 2021-08-02 19:38 | History & Physical Report ---
Date of Service August 02, 2021 Assessment & Plan (1) Nontraumatic intramuscular hematoma: (2) Hematoma of left thigh: (3) Mechanical heart valve present: Admission and Anticipated Discharge Date Admission Date: CT LLE 1. Acute intramuscular hemorrhage within the left iliacus, iliopsoas muscles and adductor muscles. Associated extraperitoneal hemorrhage. At least moderate intramuscular hemorrhage. Proximal extent of intramuscular hemorrhage not imaged on this exam. No active extravasation within visualized portions of the intramuscular hemorrhage. 2. Patent left common femoral and superficial femoral arteries. Intramuscular hematoma, non traumatic - CT reviewed as above- no active extravasation noted. No flank or abd tenderness to suspect Retroperitoneal bleed. - Hb stable at 10.1, INR 2.7- received 1 mg of Vit K per Cardiology- follow up on INR - Currently no compartment syndrome but will watch closely- if so, will need urgent ortho evaluation and probably complete reversal of INR - Trend H&H, transfuse as indicated Mechanical MV on coumadin- holding coumadin, recheck INR in am- cardio consulted. Goal INR 3-3.5 per chart review. H/o Afib- coumadin on hold as above. On lopressor Hypokalemia- K 3.3. Replete, recheck in am Possible asthmatic bronchitis- started on breo and combivent prn by pulm during recent admission CKD3- Cr stable at baseline of around 1.4-1.6 Chronic diastolic CHF- on lasix and aldactone- resume as indicated BOBBY- on celexa DM-2- A1 7. not on insulin, SSI prn GERD- on PPI Dispo- PCU tele DVT ppx- INR therapeutic- holding coumadin and reversing gently in setting of bleeding per cardio recs History of Present Illness Chief Complaint: left leg pain Primary Care Provider: John Blanco MD 65-year-old female with past medical history significant for type 2 diabetes, currently not on any medications, chronic kidney disease stage III, hypothyroidism, hyperlipidemia, atrial fibrillation, tachybrady syndrome, history of syncope, status post loop recorder, chronic diastolic CHF, history of rheumatic heart disease, history of CAD, varicose veins of both legs, history of GERD, generalized osteoarthritis, restless legs syndrome, status post mechanical mitral valve replacement, history of TIA, history of recurrent falls, generalized anxiety disorder who was recently admitted 07/18-07/25 for shortness of breath and leg swelling improved with iv diuresis; also had EGD 07/24 for barium pill stuck in esophagus and was discharged on lovenox 60 bid along with coumadin because of subtherapeutic INR (h/o mechanical MVR) presented to the ED with worsening left leg pain for the past 2 days. States she was done with lovenox shot yesterday. She started with left groin pain 2 days back which progressively got worse until today that Allergies Allergy/AdvReac Type Severity Reaction Status Date / Time hydroxyzine Allergy Severe DYSTONIA Verified 08/02/21 15:44 prochlorperazine Allergy Severe NUCHAL Verified 08/02/21 15:44 DYSTONIA promethazine Allergy Severe NUCHAL Verified 08/02/21 15:44 DYSTONIA oxycodone Allergy Intermediate Numbness Verified 08/02/21 15:44 PERRY Inhibitors AdvReac Intermediate COUGH Verified 08/02/21 15:44 lisinopril AdvReac Intermediate Cough Verified 08/02/21 15:44 metformin AdvReac Intermediate DIARRHEA Verified 08/02/21 15:44 parsley AdvReac Intermediate AGITATION Verified 08/02/21 15:44 tetracycline AdvReac Intermediate DYSPEPSIA Verified 08/02/21 15:44 gabapentin AdvReac Drowsy Verified 08/02/21 15:44 NAUSEA MEDICINES Allergy Unknown SEE NOTE Uncoded 08/02/21 15:44 BELOW Home Medications Medication Instructions Recorded Confirmed Type cholecalciferol (vitamin D3) 25 1,000 unit PO QAM 12/05/17 08/02/21 History mcg (1,000 unit) capsule (Vitamin D3) nitroglycerin 0.4 mg sublingual 0.4 mg SUBLINGUAL DIRECTED PRN 12/05/17 08/02/21 History tablet (Nitrostat) omeprazole 20 mg capsule,delayed 20 mg PO PM 12/05/17 08/02/21 History release levothyroxine 100 mcg tablet 100 mcg PO DAILYBB 05/18/18 08/02/21 History folic acid 1 mg tablet 1 mg PO QAM #30 tab 05/21/18 08/02/21 Rx ropinirole 2 mg tablet 2 mg PO TID 10/08/18 08/02/21 History acetaminophen 500 mg tablet 500 mg PO Q6H PRN 12/31/19 08/02/21 History (Tylenol Extra Strength) magnesium hydroxide 400 mg/5 mL 5 ml PO DAILY PRN 12/31/19 08/02/21 History oral suspension (Milk of Magnesia) spironolactone 25 mg tablet 12.5 mg PO DAILY 12/31/19 08/02/21 History rosuvastatin 20 mg tablet 20 mg PO HS 10/15/20 08/02/21 History ascorbic acid (vitamin C) 500 mg 500 mg PO DAILY 03/31/21 08/02/21 History tablet (Vitamin C) metoprolol tartrate 25 mg tablet 12.5 mg PO BID #30 tab 04/09/21 08/02/21 Rx benzonatate 100 mg capsule 100 mg PO TID 07/18/21 08/02/21 History bisacodyl 10 mg rectal suppository 10 mg OK DAILY 07/18/21 08/02/21 History citalopram 10 mg tablet 10 mg PO DAILY 07/18/21 08/02/21 History magnesium glycinate 100 mg tablet 0 mg PO DAILY 07/18/21 08/02/21 History metoclopramide HCl 10 mg tablet 10 mg PO DAILY PRN 07/18/21 08/02/21 History sennosides 17.2 mg tablet 17.2 mg PO HS PRN 07/18/21 08/02/21 History tramadol 50 mg tablet 50 mg PO TID PRN 07/18/21 08/02/21 History warfarin 5 mg tablet 5 mg PO DIRECTED 07/18/21 08/02/21 History fluticasone furoate 100 1 ea INHALATION DAILY 30 Days #60 07/25/21 08/02/21 Rx mcg-vilanterol 25 mcg/dose ea inhalation powder (Breo Ellipta) furosemide 80 mg tablet 80 mg PO QAM #30 tab 07/25/21 08/02/21 Rx guaifenesin 600 mg tablet, 600 mg PO Q12 #30 tab 07/25/21 08/02/21 Rx extended release 12 hr (Mucinex) ipratropium 20 mcg-albuterol 100 1 puff INHALATION Q6H PRN #4 g 07/25/21 08/02/21 Rx mcg/actuation mist for inhalation (Combivent Respimat) albuterol sulfate 90 mcg/actuation 2 puff INHALATION Q4 PRN 08/02/21 08/02/21 History aerosol inhaler azelastine 137 mcg (0.1 %) nasal 2 spray INTRANASAL [facility] 08/02/21 08/02/21 History spray aerosol ipratropium 0.5 mg-albuterol 3 mg 3 ml INHALATION QID 08/02/21 08/02/21 History (2.5 mg base)/3 mL nebulization soln Past Med/Surg History Medical History A-fib Anemia chronic; baseline hgb 9-10 range per chart review Anxiety CKD (chronic kidney disease), stage III Diabetes diet controlled Encounter for pre-operative examination GERD (gastroesophageal reflux disease) controlled History of blood transfusion autologous s/p MVR (1993), 09/2018 (post-op) HTN (hypertension) Hx of myocardial infarction 2000, medical management Hyperlipidemia Hypothyroidism Migraines 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 migraine vs. stress related)-- plavix since discontinued Surgical History H/O radioactive iodine thyroid ablation H/O: hysterectomy History of cardiac cath 2000= NO STENTS History of colonoscopy History of tonsillectomy and adenoidectomy History of total left knee replacement Hx of appendectomy Hx of cholecystectomy Hx of mitral valve replacement 1993 (rheumatic valvular disease) Hx of tubal ligation Family History Uncle , of [place] in his 40s Coronary heart disease Social History Smoking Status: Never smoker Second Hand Exposure: No; Hx Alcohol Use: Yes Alcohol type: wine Hx Substance Use: No Preferred Language: Polish Communication Ability: Effective Service Clerk Required: No Beliefs That Will Affect Care: None marital status: Single Current Living Situation: Alone Current Living Situation Comment: takes care of mother current occupational status: disabled How many Children do You have: 0 Feels Safe at Home: Yes Assistive Devices: Cane and Walker Review of Systems Review of Systems: All systems reviewed & are unremarkable except as noted in Subjective Physical Exam Physical Exam: General: Sitting comfortably in bed, not in acute distress, on room air HEENT: EOMI, CORINA, MMM Chest: Clear breath sounds bilaterally, no wheezes or crackles CVS: Regular rate and rhythm, normal heart sounds, no murmur Abdomen: Soft, non tender, not distended, normal bowel sounds. No flank or abdominal pain Neuro: Awake, alert, oriented, conversing well, non focal Extremities: LLE Distal NV status intact- pulses palpable, sensation intact. bilateral feet cool to touch- no difference. ROM limited because of pain Results & Data Results & Data ([facility]) Vital Signs (Past 12 Hours) Vital Signs Temp Pulse Pulse Resp BP BP Pulse Ox 08/02/21 19:06 112 H 20 129/69 99 08/02/21 17:00 99 H 19 104/75 93 08/02/21 15:00 69 19 95 08/02/21 13:57 85 19 117/78 92 08/02/21 12:28 37.0 C 90 20 147/102 H 98 Laboratory Results Short CBC 08/02/21 Range/Units 13:13 WBC 11.39 H (4.8-10.8) K/uL Hgb 10.1 L (12.0-16.0) g/dL Hct 32.5 L (37-47) % Plt Count 221 (130-400) K/uL BMP 08/02/21 13:13 Sodium 133 L Potassium 3.3 L Chloride 94 L Carbon Dioxide 34 H BUN 27 H Creatinine 1.52 H Glucose 271 H Calcium 10.0 Diagnostic Findings Lower Extremity CTA 08/02/21 13:26 CT ANGIOGRAPHY OF THE LEFT THIGH/FEMUR CLINICAL HISTORY: Severe left thigh pain on coumadin w/ swelling. COMPARISON STUDY: CT angiography of the abdomen and pelvis December 15, 2017. TECHNIQUE: Helical axial images of the left thigh/femur were obtained during arterial phase following intravenous injection of 118 cc Optiray 320 IV. Sagittal coronal reconstructed reviewed as well as maximal intensity projections on an independent 3-D workstation. Automated exposure control was utilized for the study. A dose lowering technique was utilized adhering to the principles of ALARA. FINDINGS: Note is made of partially visualized intramuscular hemorrhage within left iliacus and iliopsoas muscles. This represents at least moderate acute intramuscular hemorrhage. There is also a small amount of intramuscular hemorrhage within the left adductor muscles. Small amount of associated extraperitoneal hemorrhage within the left hemipelvis is noted. No active extravasation is identified within visualized portions of the intramuscular hemorrhage. The left common femoral, superficial femoral and profunda vessels are patent. No aneurysm is identified. A focus of fat necrosis within the subcutaneous tissues of the lateral left thigh is noted. Left knee arthroplasty is noted. There is no acute fracture within the left femur. No suspicious osseous lesion is noted. Bladder is distended. IMPRESSION: 1. Acute intramuscular hemorrhage within the left iliacus, iliopsoas muscles and adductor muscles. Associated extraperitoneal hemorrhage. At least moderate intramuscular hemorrhage. Proximal extent of intramuscular hemorrhage not imaged on this exam. No active extravasation within visualized portions of the intramuscular hemorrhage. 2. Patent left common femoral and superficial femoral arteries. ACT 112: Negative or not required by law. Electronically signed by: Trey Fox M.D. 08/02/2021 4:10 PM Code Status & VTE Plan VTE Prophylaxis Plan VTE Prophylaxis will be ordered: Yes (1) Hematoma of left thigh Encounter type: initial encounter Qualified Code(s): S70.12XA - Contusion of left thigh, initial encounter
[2021-08-02] MEDS ORDERED: POTASSIUM CHLORIDE CRTAB 20 MEQ TABCR PO ONE (20:00)
[2021-08-02] MEDS ORDERED: POTASSIUM CHLORIDE CRTAB 20 MEQ TABCR PO SCH (20:00)
[2021-08-02] MEDS ORDERED: MAGNESIUM HYDROXIDE SUSP 30 ML UDC PO PRN (20:36)
[2021-08-02] MEDS ORDERED: GLUCOSE 40% GEL 15 GM TUBE PO PRN (20:36)
[2021-08-02] MEDS ORDERED: GLUCOSE 10 TABS/TUBE PO PRN (20:36)
[2021-08-02] MEDS ORDERED: GLUCAGON FOR INJ 1 MG VIAL SQ PRN (20:36)
[2021-08-02] MEDS ORDERED: CARBOHYDRATES FOR HYPOGLYCEMIA PO PRN (20:36)
[2021-08-02] MEDS ORDERED: ACETAMINOPHEN 325 MG TAB PO PRN (20:36)
[2021-08-02] MEDS ORDERED: IPRATROPIUM BROMIDE/ALBUTEROL respimat INH INH PRN (20:36)
[2021-08-02] MEDS ORDERED: ALBUTEROL HFA 8 GM INHALER INH PRN (20:36)
[2021-08-02] MEDS ORDERED: DEXTROSE 50% 50 ML SYRINGE IV PRN (20:36)
[2021-08-02] MEDS ORDERED: AZELASTINE HCL 0.1% NASAL 200 SPRAYS/27,400 MCG BTL SCH (21:00)
[2021-08-02] MEDS ORDERED: PNEUMOCOCCAL POLYSACCHARIDES 25 MCG/0.5 ML VIAL/SYR IM ONE (21:05)
[2021-08-02] MEDS ORDERED: Albuterol HFA 8 GM Inhaler (Combivent Respimat P&T Subs) INH PRN (21:28)
[2021-08-02] MEDS ORDERED: Ipratropium HFA Inhaler (Combivent Respimat P&T Subs) INH PRN (21:28)
[2021-08-02] MEDS: INSULIN ASPART PER UNIT SC SCH (21:32)
[2021-08-02] MEDS: traMADol HCL 50 MG TABLET PO PRN (21:34)
[2021-08-02] MEDS: guaiFENesin 600 MG TABCR PO SCH (22:26)
[2021-08-02] MEDS: METOCLOPRAMIDE HCL 10 MG TABLET PO PRN (22:27)
[2021-08-02] MEDS: METOPROLOL TARTRATE 25 MG TAB PO SCH (22:27)
[2021-08-02] MEDS: ROSUVASTATIN CALCIUM 20 MG TAB PO SCH (22:28)
[2021-08-02] MEDS: rOPINIRole HCL 2 MG TABLET PO SCH (22:28)
[2021-08-02] MEDS: PANTOprazole 40 MG TAB PO SCH (22:28)
[2021-08-02] MEDS: SENNA 8.6 MG TAB PO PRN (22:28)
[2021-08-02] MEDS: HYDROmorphone INJ 0.5 MG/0.5 ML SYR IV PRN (22:57)
[2021-08-02 23:07] LABS: Hematocrit (blood only) 30.9 % (37-47); Hemoglobin 9.8 g/dL (12.0-16.0)
[2021-08-02 23:22] LABS: INR 1.9 (0.9-1.1); Prothrombin Time 19.5 Seconds (9.0-12.0)
[2021-08-03 02:34] LABS: Hematocrit (blood only) 28.8 % (37-47); Hemoglobin 9.1 g/dL (12.0-16.0); Mean Corpuscular Hemoglobin 26.8 pg (25-34); Mean Corpuscular Hgb Conc 31.6 g/dL (32-36); Mean Platelet Volume 10.9 fL (7.4-10.4); Platelet Count 191 K/uL (130-400); RDW Coefficient of Variation 16.4 % (11.5-14.5); RDW Standard Deviation 50.2 fL (36.4-46.3); Red Blood Count 3.39 M/uL (4.2-5.4); White Blood Count 12.74 K/uL (4.8-10.8)
[2021-08-03] MEDS: HYDROmorphone INJ 0.5 MG/0.5 ML SYR IV PRN ×5 (03:22→21:17)
[2021-08-03] MEDS: LEVOTHYROXINE SODIUM 100 MCG TABLET PO SCH (06:01)
[2021-08-03 06:30] LABS: Appearance Urine Clear (Clear); Bacteria Urine Automated Negative (Negative); Bilirubin Urine Negative (Negative); Blood Urine 2+ (Negative); Color Urine Yellow; Epithelial Cell Urine Auto 20-30 /lpf (0-5); Glucose Urine UA Negative (Negative); Ketones Urine Negative (Negative); Leukocyte Esterase Urine Negative (Negative); Nitrite Urine Negative (Negative); Protein Urine 1+ (Negative); RBC Urine Automated 0-4 /hpf (0-4); Specific Gravity Urine > 1.045 (1.000-1.030); Urobilinogen Urine Negative (Negative); pH Urine 5.5 (4.5-7.5)
[2021-08-03] MEDS: INSULIN ASPART PER UNIT SC SCH ×4 (08:49→21:36)
--- NOTE | 2021-08-03 08:51 | Cardiology Consultation ---
Date of Consultation August 03, 2021 Assessment & Plan (1) Nontraumatic intramuscular hematoma: (2) Hematoma of left thigh: (3) Rheumatic heart disease: (4) H/O mitral valve replacement with mechanical valve: (5) Chronic diastolic CHF (congestive heart failure): (6) History of CVA (cerebrovascular accident): (7) Myocardial infarction: (8) Permanent atrial fibrillation: Very medically complex 66-year-old female with a history of rheumatic heart disease undergoing a mechanical mitral valve replacement in 1993. She also carries a history of past embolic myocardial infarctions and TIA. She has permanent atrial fibrillation and is chronically anticoagulated on Coumadin. Presented to the emergency department yesterday 08/02 with left leg and groin pain. Found to have spontaneous hematoma of the left thigh in the setting of a Lovenox bridge to Coumadin. Pulses palpable in left lower extremity. Swelling minimal. No significant abdominal discomfort. No chest pain. -INR this at 1.3-- restart Coumadin 5mg this evening. Repeat INR tomorrow morning. Moving forward will avoid Lovenox or subcutaneous heparin bridges. -Continue to monitor CBC and renal function daily,replete electrolytes as needed, potassium goal of 4.0 and mag goal of 2.0 -Borderline rate controlled permanent atrial fibrillation on monitor. No medication changes necessary at this time-continue metoprolol tartrate as ordered. Continue to monitor on telemetry. -Euvolemic on exam. Recommend less than 2 g sodium diet. Not requiring loop diuretic therapy at this time. Continue Aldactone as ordered. -Lungs are clear on exam. Will defer to primary team regarding inhaler and nebulizer treatments. Patient uses albuterol and Breo at home. Case discussed with Dr. Molina- Will follow. Supervising Physician Co-Signing Physician Notes Patient was seen and personally examined. Full assessment as well outlined above. Patient presents with spontaneous intramuscular hemorrhage/hematoma. Event oc curred after bridge anticoagulation with Lovenox and warfarin as indicated for mechanical mitral valve prosthesis. Exam reveals leg to be tender but soft no palpable large hematoma. Hemoglobin trended slightly lower but no profound blood loss observed. Plan as above resume oral warfarin at usual dosing expect INR to gradually rise, follow hemoglobin History of Present Illness Reason for Consultation: Spontaneous lower extremity hematoma, history of mechanical mitral valve replacement [facility] Attending Physician: Jose Angel Lara MD History of Present Illness Medically complex 66-year-old female with history of rheumatic valvular heart disease status post mitral valve replacement with a mechanical Roe-Medtronic prosthesis in 1993. On chronic anticoagulation with Coumadin. Also has a history of permanent atrial fibrillation and prior embolic CVA. Primarily follows with Dr. Molina as an outpatient. Recently admitted from 07/18 to 07/25 for acute on chronic diastolic CHF. Symptoms improved with IV diuresis. Patient was found to have a supratherapeutic INR of 5.1 and Coumadin was held for 24 hours. Patient was having issues with dysphagia and underwent an EGD on 07/24 with unremarkable findings. Coumadin was presented that day with a heparin bridge. On discharge patient was set up for a Lovenox bridge. Patient presented to the emergency department yesterday, 08/02 for left leg and left groin pain x2 days. Her last dose of Lovenox was yesterday. CT of the lower extremity showed: Acute intramuscular hemorrhage within the left iliacus, iliopsoas muscles and adductor muscles. Associated extraperitoneal hemorrhage. At least moderate intramuscular hemorrhage. Proximal extent of intramuscular hemorrhage not imaged on this exam. No active extravasation within visualized portions of the intramuscular hemorrhage. Coumadin was held. INR 2.7>>1.9>>1.3. Goal INR 3-3.5 due to mechanical mitral valve. Tele:Afib 90s Chart and telemetry reviewed. Patient seen and examined at bedside. Upon entrance into the room patient resting in bed. Notes discomfort in her leg is improving. No numbness or tingling. No chest pain. Does have chronic shortness of breath/cough that has improved with the use of nebs/inhalers as an outpatient. Denies any blood in the stools or urine. Problem List: 1. 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 2. Chronic atrial fibrillation with borderline tachy Chris syndrome 3. Past embolic myocardial infarction and TIA, on chronic anticoagulation plus antiplatelet therapy with clopidogrel. 4. Type 2 diabetes mellitus. 5. Hyperlipidemia. 6. Chronic renal insufficiency. 7. Acute COVID infection 10/14/2020 treated with monoclonal antibodies as an outpatient 8. Fall episodes prompting Loop recorder and subsequent admission 03/2021 with no arrhythmia abnormalities that would explain symptom Allergies Allergy/AdvReac Type Severity Reaction Status Date / Time hydroxyzine Allergy Severe DYSTONIA Verified 08/02/21 15:44 prochlorperazine Allergy Severe NUCHAL Verified 08/02/21 15:44 DYSTONIA promethazine Allergy Severe NUCHAL Verified 08/02/21 15:44 DYSTONIA oxycodone Allergy Intermediate Numbness Verified 08/02/21 15:44 PERRY Inhibitors AdvReac Intermediate COUGH Verified 08/02/21 15:44 lisinopril AdvReac Intermediate Cough Verified 08/02/21 15:44 metformin AdvReac Intermediate DIARRHEA Verified 08/02/21 15:44 parsley AdvReac Intermediate AGITATION Verified 08/02/21 15:44 tetracycline AdvReac Intermediate DYSPEPSIA Verified 08/02/21 15:44 gabapentin AdvReac Drowsy Verified 08/02/21 15:44 NAUSEA MEDICINES Allergy Unknown SEE NOTE Uncoded 08/02/21 15:44 BELOW Home Medications Medication Instructions Recorded Confirmed Type cholecalciferol (vitamin D3) 25 1,000 unit PO QAM 12/05/17 08/02/21 History mcg (1,000 unit) capsule (Vitamin D3) nitroglycerin 0.4 mg sublingual 0.4 mg SUBLINGUAL DIRECTED PRN 12/05/17 08/02/21 History tablet (Nitrostat) omeprazole 20 mg capsule,delayed 20 mg PO PM 12/05/17 08/02/21 History release levothyroxine 100 mcg tablet 100 mcg PO DAILYBB 05/18/18 08/02/21 History folic acid 1 mg tablet 1 mg PO QAM #30 tab 05/21/18 08/02/21 Rx ropinirole 2 mg tablet 2 mg PO TID 10/08/18 08/02/21 History acetaminophen 500 mg tablet 500 mg PO Q6H PRN 12/31/19 08/02/21 History (Tylenol Extra Strength) magnesium hydroxide 400 mg/5 mL 5 ml PO DAILY PRN 12/31/19 08/02/21 History oral suspension (Milk of Magnesia) spironolactone 25 mg tablet 12.5 mg PO DAILY 12/31/19 08/02/21 History rosuvastatin 20 mg tablet 20 mg PO HS 10/15/20 08/02/21 History ascorbic acid (vitamin C) 500 mg 500 mg PO DAILY 03/31/21 08/02/21 History tablet (Vitamin C) metoprolol tartrate 25 mg tablet 12.5 mg PO BID #30 tab 04/09/21 08/02/21 Rx benzonatate 100 mg capsule 100 mg PO TID 07/18/21 08/02/21 History bisacodyl 10 mg rectal suppository 10 mg HI DAILY 07/18/21 08/02/21 History citalopram 10 mg tablet 10 mg PO DAILY 07/18/21 08/02/21 History magnesium glycinate 100 mg tablet 0 mg PO DAILY 07/18/21 08/02/21 History metoclopramide HCl 10 mg tablet 10 mg PO DAILY PRN 07/18/21 08/02/21 History sennosides 17.2 mg tablet 17.2 mg PO HS PRN 07/18/21 08/02/21 History tramadol 50 mg tablet 50 mg PO TID PRN 07/18/21 08/02/21 History warfarin 5 mg tablet 5 mg PO DIRECTED 07/18/21 08/02/21 History fluticasone furoate 100 1 ea INHALATION DAILY 30 Days #60 07/25/21 08/02/21 Rx mcg-vilanterol 25 mcg/dose ea inhalation powder (Breo Ellipta) furosemide 80 mg tablet 80 mg PO QAM #30 tab 07/25/21 08/02/21 Rx guaifenesin 600 mg tablet, 600 mg PO Q12 #30 tab 07/25/21 08/02/21 Rx extended release 12 hr (Mucinex) ipratropium 20 mcg-albuterol 100 1 puff INHALATION Q6H PRN #4 g 07/25/21 08/02/21 Rx mcg/actuation mist for inhalation (Combivent Respimat) albuterol sulfate 90 mcg/actuation 2 puff INHALATION Q4 PRN 08/02/21 08/02/21 History aerosol inhaler azelastine 137 mcg (0.1 %) nasal 2 spray INTRANASAL [facility] 08/02/21 08/02/21 History spray aerosol ipratropium 0.5 mg-albuterol 3 mg 3 ml INHALATION QID 08/02/21 08/02/21 History (2.5 mg base)/3 mL nebulization soln Patient History Medical History A-fib Anemia chronic; baseline hgb 9-10 range per chart review Anxiety CKD (chronic kidney disease), stage III Diabetes diet controlled Encounter for pre-operative examination GERD (gastroesophageal reflux disease) controlled History of blood transfusion autologous s/p MVR (1993), 09/2018 (post-op) HTN (hypertension) Hx of myocardial infarction 2000, medical management Hyperlipidemia Hypothyroidism Migraines 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 migraine vs. stress related)-- plavix since discontinued Surgical History H/O radioactive iodine thyroid ablation H/O: hysterectomy History of cardiac cath 2000= NO STENTS History of colonoscopy History of tonsillectomy and adenoidectomy History of total left knee replacement Hx of appendectomy Hx of cholecystectomy Hx of mitral valve replacement 1993 (rheumatic valvular disease) Hx of tubal ligation Family History Uncle , of [place] in his 40s Coronary heart disease Social History Smoking Status: Never smoker Second Hand Exposure: Yes ( CHILD); Do You Dip or Chew Tobacco: No; Hx Alcohol Use: Yes Alcohol type: wine Hx Substance Use: No Preferred Language: Azeri Communication Ability: Effective Lever Tender Required: No Beliefs That Will Affect Care: None marital status: Single Current Living Situation: Alone Current Living Situation Comment: takes care of mother current occupational status: disabled How many Children do You have: 0 Other Information That Helps Us Care for You: No Feels Safe at Home: Yes Assistive Devices: Cane and Walker Assistive Devices Comment: DENTURES WITH PT Review of Systems Review of Systems: All systems reviewed & are unremarkable except as noted in HPI & below Physical Exam Constitutional: WD/WN, vitals as above Eyes: PERRL, conjunctivae normal, anicteric sclerae ENMT: external ear and nose normal, oropharynx normal Neck: normal visual inspection Respiratory: normal respiratory effort, lungs clear to auscultation + cough Auscultation: lungs clear to auscultation bilaterally Cardiovascular: Rate/Rhythm: regular rate and + irregularly irregular Heart Sounds: normal S1, normal S2 and + murmur (+crisp mechanical valve closure) Vessels: normal peripheral pulses, femoral pulses present and popliteal pulses present; no JVD Extremities: + varicosities; no edema +left leg pulses palpable. Gastrointestinal (Abdomen): Percussion/Palpation: abdomen soft; abdomen nontender Notable ecchymosis at Lovenox injection sites Skin: no rashes, warm and dry + ecchymosis (abdomen) Neurologic: PERRL, EOMI, accommodation nl, no face palsy, no dysarthria Motor/Sensory: no tremor Psychiatric: A+Ox3, euthymic affect Orientation: cooperative Affect: + anxious affect and + tearful affect Results & Data ([facility]) Vital Signs (Past 12 Hours) Vital Signs Temp Pulse Pulse Resp BP BP Pulse Ox 08/03/21 07:21 37.4 C 107 H 18 121/61 92 08/03/21 03:22 36.7 C 98 H 19 120/76 96 08/03/21 00:28 103 H 08/03/21 00:27 95 H 08/02/21 23:42 37.0 C 90 23 105/63 96 Laboratory Results Coagulation 08/02/21 08/02/21 08/03/21 Range/Units 13:13 22:48 08:58 PT 27.1 H 19.5 H 13.6 H (9.0-12.0) Seconds CBC 08/02/21 08/02/21 08/02/21 Range/Units 13:13 20:57 22:48 WBC 11.39 H (4.8-10.8) K/uL RBC 3.90 L (4.2-5.4) M/uL Hgb 10.1 L 10.0 L 9.8 L (12.0-16.0) g/dL Hct 32.5 L 32.0 L 30.9 L (37-47) % Plt Count 221 (130-400) K/uL Neut # (Auto) 9.89 H (1.4-6.5) K/uL Lymph # (Auto) 0.47 L (1.2-3.4) K/uL [place] # (Auto) 0.94 H (0.11-0.59) K/uL Eos # (Auto) 0.04 (0-0.5) K/uL Baso # (Auto) 0.02 (0-0.2) K/uL 08/03/21 08/03/21 Range/Units 02:25 08:58 WBC 12.74 H (4.8-10.8) K/uL RBC 3.39 L (4.2-5.4) M/uL Hgb 9.1 L 9.2 L (12.0-16.0) g/dL Hct 28.8 L 30.1 L (37-47) % Plt Count 191 (130-400) K/uL Neut # (Auto) (1.4-6.5) K/uL Lymph # (Auto) (1.2-3.4) K/uL [place] # (Auto) (0.11-0.59) K/uL Eos # (Auto) (0-0.5) K/uL Baso # (Auto) (0-0.2) K/uL Comprehensive Metabolic Panel 08/02/21 08/03/21 Range/Units 13:13 08:58 Sodium 133 L 131 L (136-145) mmol/L Potassium 3.3 L 3.5 (3.5-5.1) mmol/L Chloride 94 L 93 L (98-107) mmol/L Carbon Dioxide 34 H 32 (21-32) mmol/L BUN 27 H 28 H (6-23) mg/dl Creatinine 1.52 H 1.58 H (0.6-1.2) mg/dl Glucose 271 H 190 H (70-99(Fasting)) mg/dl Calcium 10.0 10.0 (8.5-10.1) mg/dl Intake and Output 08/02/21 08/03/21 08/03/21 22:59 06:59 14:59 Intake Total 50.1 / 50.1 Output Total 100 / 100 Balance 50.1 / -49.9 -100 / -49.9 Intake: IV 50.1 / 50.1 Phytonadione 1 mg In Dextrose 5 50.1 / 50.1 % 50 ml @ 100.5 mls/hr IV ONE ONE Rx#:[id number] Output: Urine 100 / 100 Other: # Unmeasured Voids 1 Weight 54.5 kg 54.5 kg Weight Measurement Method Built in [facility] Patient Weight 08/04/21 06:59 Weight 54.5 kg (1) Hematoma of left thigh Encounter type: initial encounter Qualified Code(s): S70.12XA - Contusion of left thigh, initial encounter
[2021-08-03] MEDS: METOPROLOL TARTRATE 25 MG TAB PO SCH ×2 (08:52→21:25)
[2021-08-03] MEDS: SPIRONOLACTONE 12.5 MG TAB PO SCH (08:52)
[2021-08-03] MEDS: FOLIC ACID 1 MG TAB PO SCH (08:52)
[2021-08-03] MEDS: rOPINIRole HCL 2 MG TABLET PO SCH ×3 (08:52→21:28)
[2021-08-03] MEDS: CITALOPRAM 20 MG TAB PO SCH (08:52)
[2021-08-03] MEDS: FLUTICASONE/VILANTEROL 100/25MCG 14 PUFFS/INHALER INH SCH (08:53)
[2021-08-03] MEDS: guaiFENesin 600 MG TABCR PO SCH ×2 (08:53→21:21)
[2021-08-03] MEDS: AZELASTINE HCL 0.1% NASAL 200 SPRAYS/27,400 MCG BTL SCH ×2 (08:53→21:20)
[2021-08-03 09:22] LABS: Hematocrit (blood only) 30.1 % (37-47); Hemoglobin 9.2 g/dL (12.0-16.0)
[2021-08-03 09:28] LABS: INR 1.3 (0.9-1.1); Prothrombin Time 13.6 Seconds (9.0-12.0)
[2021-08-03 09:54] LABS: BUN Creatinine Ratio 17.7 (10-20); Creatinine Clr Calc Pharmacy 24.5 ml/min; Est GFR (African American) 38.6 ml/min; Est GFR (Non-African American) 33.3 ml/min; Potassium 3.5 mmol/L (3.5-5.1)
[2021-08-03] MEDS: traMADol HCL 50 MG TABLET PO PRN (11:20)
[2021-08-03] MEDS: ALBUT/IPRATROP 3MG/0.5MG NEB 3 ML VIAL INH SCH ×3 (11:40→19:13)
[2021-08-03 14:32] LABS: Hematocrit (blood only) 28.7 % (37-47)
--- NOTE | 2021-08-03 15:47 | Hospitalist Progress Note ---
Date of Service August 03, 2021 Assessment & Plan (1) H/O mitral valve replacement with mechanical valve: (2) Nontraumatic intramuscular hematoma: Plan: 65-year-old female with past medical history of significant for type 2 diabetes, currently not on any medications, chronic kidney disease stage III, hypothyroidism, hyperlipidemia, atrial fibrillation, tachybrady syndrome, history of syncope, status post loop recorder, chronic diastolic CHF, history of rheumatic heart disease, history of CAD, varicose veins of both legs, history of GERD, generalized osteoarthritis, restless legs syndrome, status post mechanical mitral valve replacement, history of TIA, history of recurrent falls, generalized anxiety disorder who was recently admitted 07/18-07/25 for shortness of breath and leg swelling improved with iv diuresis; also had EGD 07/24 for barium pill stuck in esophagus and was discharged on lovenox 60 bid along with coumadin because of subtherapeutic INR (h/o mechanical MVR) presented to the ED 08/02 with worsening left thigh pain 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 She is being managed for the following: Admitting CT LLE 1. Acute intramuscular hemorrhage within the left iliacus, iliopsoas muscles and adductor muscles. Associated extraperitoneal hemorrhage. At least moderate intramuscular hemorrhage. Proximal extent of intramuscular hemorrhage not imaged on this exam. No active extravasation within visualized portions of the intramuscular hemorrhage. 2. Patent left common femoral and superficial femoral arteries. Intramuscular hematoma, non traumatic - CT reviewed as above- no active extravasation noted. No flank or abd tenderness to suspect Retroperitoneal bleed. - Hb at 10.1 at presentation, INR 2.7- received 1 mg of Vit K - Currently no compartment syndrome but will watch closely- if so, will need urgent ortho evaluation and probably complete reversal of INR - Trend H&H, transfuse as indicated --> Hb stable around 9, swelling minimally better per pt, continue to monitor. INR 1.3 Mechanical MV on coumadin Permanent Afib H/o embolic [place] and TIA restarting coumadin per cardio, recheck INR in am- cardio on board. Goal INR 3- 3.5. On lopressor Electrolytes abnormality: Monitor and replete electrolytes, maintain K greater than 4 and Mg greater than 2 Possible asthmatic bronchitis- started on breo and combivent prn by pulm during recent admission, continue w/ same. CKD3- Cr stable at baseline of around 1.4-1.6 Chronic diastolic CHF- on lasix and aldactone- resume as indicated BOBBY- on celexa DM-2- A1 7. not on insulin, SSI prn GERD- on PPI Dispo- PCU tele DVT ppx- coumadin being resumed. Full Code. Admission and Anticipated Discharge Date Admission Date: August 02, 2021 Subjective Patient seen and examined at bedside as a follow-up of nontraumatic intramuscular hematoma x left thigh. Patient was lying in bed, on room air, no acute events overnight, reports eating somewhat okay, not in acute distress, reports swelling and numbness of left thigh going down minimally but pain being about the same and worse with movement. Reports having bowel movement 2 days ago, her usual diabetes every 2-day. Patient denies headache/dizziness/chest pain/palpitation. Patient wanted her inhalers to be given. RN notified. Patient denies other review of symptoms. Physical Exam Physical Exam: GENERAL: Alert and oriented x3. NAD, on RA. HEENT: No pallor, no icterus. Pupils equal, round and reactive to light. Oral mucosa moist. NECK: No JVD, no neck masses. HEART: S1 and S2 heard. irregular rate and rhythm. No murmur, no gallop. RESPIRATORY SYSTEM: Normal AP diameter. No accessory muscle use. occasional crackles and wheezes ABDOMEN: Soft, bowel sounds present, nontender, no distention. CENTRAL NERVOUS SYSTEM: No facial droop. Speech is clear. Obeys simple commands. Moves extremities. EXTREMITIES: trace ble edema, no erythema seen. Lt thigh swollen/tender/no bruise or erythema noted. Distal NV status x LLE normal. ROM LLE limited d/t pain. Results & Data Results & Data ([facility]) Vital Signs (Past 12 Hours) Vital Signs Temp Pulse Resp BP Pulse Ox 08/03/21 11:40 104 H 18 94 08/03/21 11:18 37.5 C 107 H 19 123/68 94 08/03/21 07:21 37.4 C 107 H 18 121/61 92
[2021-08-03] MEDS ORDERED: POTASSIUM CHLORIDE CRTAB 20 MEQ TABCR PO STA (15:49)
[2021-08-03] MEDS: WARFARIN SOD 5 MG TAB PO SCH (17:46)
[2021-08-03] MEDS: PANTOprazole 40 MG TAB PO SCH (21:27)
[2021-08-03] MEDS: ROSUVASTATIN CALCIUM 20 MG TAB PO SCH (21:28)
[2021-08-04] MEDS: HYDROmorphone INJ 0.5 MG/0.5 ML SYR IV PRN ×5 (00:19→21:57)
[2021-08-04] MEDS: traMADol HCL 50 MG TABLET PO PRN (02:37)
[2021-08-04] MEDS: LEVOTHYROXINE SODIUM 100 MCG TABLET PO SCH (05:40)
[2021-08-04] MEDS: ALBUT/IPRATROP 3MG/0.5MG NEB 3 ML VIAL INH SCH ×4 (06:56→19:21)
[2021-08-04 07:24] LABS: Hemoglobin 8.7 g/dL (12.0-16.0); Mean Corpuscular Hemoglobin 26.6 pg (25-34); Mean Corpuscular Hgb Conc 31.1 g/dL (32-36); Mean Corpuscular Volume 85.6 fL (80-100); Mean Platelet Volume 11.3 fL (7.4-10.4); Platelet Count 199 K/uL (130-400); RDW Coefficient of Variation 16.7 % (11.5-14.5); RDW Standard Deviation 52.1 fL (36.4-46.3); Red Blood Count 3.27 M/uL (4.2-5.4); White Blood Count 16.75 K/uL (4.8-10.8)
[2021-08-04 07:38] LABS: INR 1.2 (0.9-1.1); Prothrombin Time 12.9 Seconds (9.0-12.0)
--- NOTE | 2021-08-04 07:58 | Cardiology Progress Note ---
Date of Service August 04, 2021 Assessment & Plan (1) Nontraumatic intramuscular hematoma: (2) Hematoma of left thigh: (3) Rheumatic heart disease: (4) H/O mitral valve replacement with mechanical valve: (5) Chronic diastolic CHF (congestive heart failure): (6) History of CVA (cerebrovascular accident): (7) Myocardial infarction: (8) Permanent atrial fibrillation: Plan: Very medically complex 66-year-old female with a history of rheumatic heart disease undergoing a mechanical mitral valve replacement in 1993. She also carries a history of past embolic myocardial infarctions and TIA. She has permanent atrial fibrillation and is chronically anticoagulated on Coumadin. Presented to the emergency department yesterday 08/02 with left leg and groin pain. Found to have spontaneous hematoma of the left thigh in the setting of a Lovenox bridge to Coumadin. All pulses palpable in left lower extremity. Swelling minimal. No significant abdominal discomfort, ecchymosis noted. No chest pain. Hemoglobin stable. -INR this at 1.2-- Continue Coumadin 5 mg daily. Repeat INR tomorrow morning. Goal INR 3-3.5 due to mechanical mitral valve. Moving forward will avoid Lovenox or subcutaneous heparin bridges. -Continue to monitor CBC and renal function daily, replete electrolytes as needed, potassium goal of 4.0 and mag goal of 2.0 -Tachycardic on monitor, HR 100-110s permanent atrial fibrillation on monitor. Anemia can be contributing. Increase metoprolol to 25 mg twice daily. Continue to monitor on telemetry. -Euvolemic on exam. Recommend less than 2 g sodium diet. Not requiring loop diuretic therapy at this time. Continue Aldactone as ordered. Restart Lasix 40 mg daily. (Normally maintains on Lasix 40 mg x3 days per week and 80 mg x4 days per week- recently increased last admission to 80 mg daily). -PT/OT referral placed. OOB with meals recommended. Case discussed with Dr. Molina- Will follow. Admission and Anticipated Discharge Date Admission Date: August 02, 2021 Supervising Physician Co-Signing Physician Notes Patient was seen and examined, chart, medications, telemetry reviewed. Full assessment as well outlined above. Leg discomfort still present but improving slightly. Plan: Gradual increase in activities, physical therapy. Furosemide resumed as above. Patient received warfarin dose last evening we will continue Subjective Medically complex 66-year-old female with history of rheumatic valvular heart disease status post mitral valve replacement with a mechanical [employer] prosthesis in 1993. On chronic anticoagulation with Coumadin. Also has a history of permanent atrial fibrillation and prior embolic CVA. Primarily follows with Dr. Molina as an outpatient. Recently admitted from 07/18-07/25 for acute on chronic diastolic CHF, symptoms improved with IV diuresis. She did have to undergo an EGD and Coumadin was held for 24 hours. Due to a subtherapeutic INR patient was started on a Lovenox bridge to Coumadin. On 08/02 she presented to the emergency department with left leg and left groin pain. She was found to have an acute intramuscular hemorrhage. She was given vitamin K-INR reduced to 2.7>>1.9>>1.3>>1.2. Coumadin restarted on 08/03. Tele: Afib 100-110s, 130s with movement. Chart and telemetry reviewed. Patient seen and examined at bedside. Upon entrance into the room patient resting in bed eating breakfast. Notes discomfort in her leg is improving, but it is completely numb. No abdominal discomfort. No chest pain. Does have chronic shortness of breath/cough that has improved with the use of nebs/inhalers as an outpatient. Denies any blood in the stools or urine. Low urine output this am per the patient- has not recieved her lasix. Review of Systems Review of Systems: All systems reviewed & are unremarkable except as noted in HPI & below Physical Exam Constitutional: WD/WN, vitals as above Eyes: PERRL, conjunctivae normal, anicteric sclerae ENMT: external ear and nose normal, oropharynx normal Neck: normal visual inspection Respiratory: normal respiratory effort, lungs clear to auscultation no cough Cardiovascular: Rate/Rhythm: + tachycardic and + irregularly irregular Heart Sounds: normal S1, normal S2 and + murmur (+crisp mechanical valve closure) Vessels: normal peripheral pulses, femoral pulses present and popliteal pulses present; no JVD Extremities: + varicosities; no edema Gastrointestinal (Abdomen): Percussion/Palpation: abdomen soft; abdomen nontender Skin: no rashes, warm and dry + ecchymosis (abdomen at lovenox injection sites) Neurologic: PERRL, EOMI, accommodation nl, no face palsy, no dysarthria Motor/Sensory: no tremor Psychiatric: A+Ox3, euthymic affect Orientation: cooperative Results & Data ([facility]) Vital Signs (Past 12 Hours) Vital Signs Temp Pulse Pulse Resp BP BP Pulse Ox 08/04/21 07:53 36.7 C 110 H 19 108/59 L 92 08/04/21 06:57 113 H 19 95 08/04/21 04:02 36.8 C 100 H 14 112/67 93 08/04/21 03:05 36.8 C 105 H 18 105/65 94 08/03/21 23:48 37.0 C 99 H 16 106/67 93 08/03/21 22:18 103 H Laboratory Results Coagulation 08/03/21 08/04/21 Range/Units 08:58 06:48 PT 13.6 H 12.9 H (9.0-12.0) Seconds CBC 08/03/21 08/03/21 08/04/21 Range/Units 08:58 14:12 06:48 WBC 16.75 H (4.8-10.8) K/uL RBC 3.27 L (4.2-5.4) M/uL Hgb 9.2 L 9.0 L 8.7 L (12.0-16.0) g/dL Hct 30.1 L 28.7 L 28.0 L (37-47) % Plt Count 199 (130-400) K/uL Comprehensive Metabolic Panel 08/03/21 08/04/21 Range/Units 08:58 06:48 Sodium 131 L 132 L (136-145) mmol/L Potassium 3.5 5.0 D (3.5-5.1) mmol/L Chloride 93 L 96 L (98-107) mmol/L Carbon Dioxide 32 33 H (21-32) mmol/L BUN 28 H 27 H (6-23) mg/dl Creatinine 1.58 H 1.64 H (0.6-1.2) mg/dl Glucose 190 H 185 H (70-99(Fasting)) mg/dl Calcium 10.0 10.4 H (8.5-10.1) mg/dl Intake and Output 08/03/21 08/04/21 08/04/21 22:59 06:59 14:59 Intake Total 200 / 1130 450 / 1130 Balance 200 / 480 450 / 480 Intake: Oral 200 / 1130 450 / 1130 Other: # Unmeasured Voids 2 Weight 54.3 kg Weight Measurement Method Built in [facility] (1) Hematoma of left thigh Encounter type: initial encounter Qualified Code(s): S70.12XA - Contusion of left thigh, initial encounter
[2021-08-04 08:05] LABS: BUN Creatinine Ratio 16.5 (10-20); Calcium 10.4 mg/dl (8.5-10.1); Creatinine Clr Calc Pharmacy 23.6 ml/min; Est GFR (African American) 36.9 ml/min; Est GFR (Non-African American) 31.8 ml/min; Magnesium 2.5 mg/dl (1.7-2.4); Phosphorus 3.5 mg/dl (2.5-4.9)
[2021-08-04] MEDS: FLUTICASONE/VILANTEROL 100/25MCG 14 PUFFS/INHALER INH SCH (09:04)
[2021-08-04] MEDS: FOLIC ACID 1 MG TAB PO SCH (09:04)
[2021-08-04] MEDS: rOPINIRole HCL 2 MG TABLET PO SCH ×3 (09:04→21:55)
[2021-08-04] MEDS: SPIRONOLACTONE 12.5 MG TAB PO SCH (09:04)
[2021-08-04] MEDS: SENNA 8.6 MG TAB PO PRN (09:04)
[2021-08-04] MEDS: AZELASTINE HCL 0.1% NASAL 200 SPRAYS/27,400 MCG BTL SCH ×2 (09:05→21:56)
[2021-08-04] MEDS: guaiFENesin 600 MG TABCR PO SCH ×2 (09:05→21:55)
[2021-08-04] MEDS: METOPROLOL TARTRATE 25 MG TAB PO SCH ×2 (09:05→21:56)
[2021-08-04] MEDS: INSULIN ASPART PER UNIT SC SCH ×4 (09:07→21:56)
[2021-08-04] MEDS: FUROSEMIDE 40 MG TAB PO SCH (10:43)
[2021-08-04] MEDS: CITALOPRAM 20 MG TAB PO SCH (10:43)
[2021-08-04] MEDS: WARFARIN SOD 5 MG TAB PO SCH (16:00)
[2021-08-04 16:01] LABS: Hematocrit (blood only) 28.3 % (37-47); Hemoglobin 8.8 g/dL (12.0-16.0)
--- NOTE | 2021-08-04 18:40 | Hospitalist Progress Note ---
Date of Service August 04, 2021 Assessment & Plan (1) H/O mitral valve replacement with mechanical valve: (2) Nontraumatic intramuscular hematoma: Plan: 65-year-old female with past medical history of significant for type 2 diabetes, currently not on any medications, chronic kidney disease stage III, hypothyroidism, hyperlipidemia, atrial fibrillation, tachybrady syndrome, history of syncope, status post loop recorder, chronic diastolic CHF, history of rheumatic heart disease, history of CAD, varicose veins of both legs, history of GERD, generalized osteoarthritis, restless legs syndrome, status post mechanical mitral valve replacement, history of TIA, history of recurrent falls, generalized anxiety disorder who was recently admitted 07/18-07/25 for shortness of breath and leg swelling improved with iv diuresis; also had EGD 07/24 for barium pill stuck in esophagus and was discharged on lovenox 60 bid along with coumadin because of subtherapeutic INR (h/o mechanical MVR) presented to the ED 08/02 with worsening left thigh pain for the past 2 days [employer]. She is being managed for the following: Admitting CT LLE 1. Acute intramuscular hemorrhage within the left iliacus, iliopsoas muscles and adductor muscles. Associated extraperitoneal hemorrhage. At least moderate intramuscular hemorrhage. Proximal extent of intramuscular hemorrhage not imaged on this exam. No active extravasation within visualized portions of the intramuscular hemorrhage. 2. Patent left common femoral and superficial femoral arteries. Intramuscular hematoma, non traumatic - CT reviewed as above- no active extravasation noted. No flank or abd tenderness to suspect Retroperitoneal bleed. - Hb at 10.1 at presentation, INR 2.7- received 1 mg of Vit K - Currently no compartment syndrome but will watch closely- if so, will need urgent ortho evaluation and probably complete reversal of INR - Trend H&H, transfuse as indicated --> Hb stable around 8.5- 9, no erythema or increasing swelling. continue to monitor. INR 1.2 Mechanical MV on coumadin Permanent Afib H/o embolic ND and TIA c/w coumadin, recheck INR in am- cardio on board. Goal INR 3-3.5. Moving forward will avoid Lovenox or subcutaneous heparin bridges. On lopressor increased to 25 mg PO BID Electrolytes abnormality: Monitor and replete electrolytes, maintain K greater than 4 and Mg greater than 2 Possible asthmatic bronchitis- started on breo and combivent prn by pulm during recent admission, continue w/ same. CKD3- Cr stable at baseline of around 1.4-1.6 Chronic diastolic CHF- on lasix and aldactone- resume as indicated BOBBY- on celexa DM-2- A1 7. not on insulin, SSI prn GERD- on PPI Dispo- PCU tele DVT ppx- coumadin Full Code. Admission and Anticipated Discharge Date Admission Date: August 02, 2021 Subjective Patient seen and examined at bedside as a follow-up of nontraumatic intramuscular hematoma x left thigh. Patient was lying in bed, on room air, no acute events overnight, reports eating ok but no appetite, not in acute distress, reports swelling and numbness of left thigh & pain worse with movement. Reports having bowel movement 3 days ago, her usual habit is every 2-day. Patient denies headache/dizziness/chest pain/palpitation. Denies sore throat or cough. denies other review of symptoms. Physical Exam Physical Exam: GENERAL: Alert and oriented x3. NAD, on RA. HEENT: No pallor, no icterus. Pupils equal, round and reactive to light. Oral mucosa moist. NECK: No JVD, no neck masses. HEART: S1 and S2 heard. irregular rate and rhythm. No murmur, no gallop. RESPIRATORY SYSTEM: Normal AP diameter. No accessory muscle use. occasional crackles and wheezes ABDOMEN: Soft, bowel sounds present, nontender, no distention. CENTRAL NERVOUS SYSTEM: No facial droop. Speech is clear. Obeys simple commands. Moves extremities. EXTREMITIES: trace ble edema, no erythema seen. Lt thigh swollen/tender/no bruise or erythema noted. Distal NV status x LLE normal. ROM LLE limited d/t pain. Results & Data Results & Data ([facility]) Vital Signs (Past 12 Hours) Vital Signs Temp Pulse Resp BP Pulse Ox 08/04/21 15:53 37.0 C 112 H 18 110/67 93 08/04/21 14:44 102 H 18 95 08/04/21 12:11 37.2 C 109 H 18 111/64 92 08/04/21 10:41 105 H 18 95 08/04/21 07:53 36.7 C 110 H 19 108/59 L 92 08/04/21 06:57 113 H 19 95
[2021-08-04] MEDS: ROSUVASTATIN CALCIUM 20 MG TAB PO SCH (21:55)
[2021-08-04] MEDS: PANTOprazole 40 MG TAB PO SCH (21:56)
[2021-08-05] MEDS: traMADol HCL 50 MG TABLET PO PRN ×2 (01:43→19:47)
[2021-08-05] MEDS: HYDROmorphone INJ 0.5 MG/0.5 ML SYR IV PRN ×3 (04:52→21:04)
[2021-08-05 05:46] LABS: Basophils # (auto) 0.01 K/uL (0-0.2); Basophils % (auto) 0.1 %; Eosinophils # (auto) 0.03 K/uL (0-0.5); Eosinophils % (auto) 0.2 %; Hematocrit (blood only) 26.8 % (37-47); Hemoglobin 8.4 g/dL (12.0-16.0); Immature Granulocytes # (auto) 0.08 K/uL (0.00-0.02); Immature Granulocytes % (auto) 0.5 %; Lymphocytes # (auto) 0.73 K/uL (1.2-3.4); Lymphocytes % (auto) 4.6 %; Mean Corpuscular Hemoglobin 26.4 pg (25-34); Mean Corpuscular Hgb Conc 31.3 g/dL (32-36); Mean Corpuscular Volume 84.3 fL (80-100); Mean Platelet Volume 10.9 fL (7.4-10.4); Monocytes # (auto) 1.58 K/uL (0.11-0.59); Monocytes % (auto) 9.9 %; Neutrophils # (auto) 13.47 K/uL (1.4-6.5); Neutrophils % (auto) 84.7 %; Platelet Count 224 K/uL (130-400); RDW Coefficient of Variation 16.7 % (11.5-14.5); RDW Standard Deviation 51.2 fL (36.4-46.3); Red Blood Count 3.18 M/uL (4.2-5.4)
[2021-08-05 05:53] LABS: INR 1.5 (0.9-1.1); Prothrombin Time 16.1 Seconds (9.0-12.0)
[2021-08-05] MEDS: LEVOTHYROXINE SODIUM 100 MCG TABLET PO SCH (05:55)
[2021-08-05 06:02] LABS: BUN Creatinine Ratio 17.4 (10-20); Calcium 10.1 mg/dl (8.5-10.1); Creatinine Clr Calc Pharmacy 23.2 ml/min; Est GFR (African American) 36.1 ml/min; Est GFR (Non-African American) 31.1 ml/min; Magnesium 2.5 mg/dl (1.7-2.4); Potassium 4.5 mmol/L (3.5-5.1)
[2021-08-05] MEDS: ALBUT/IPRATROP 3MG/0.5MG NEB 3 ML VIAL INH SCH ×4 (06:49→19:18)
[2021-08-05] MEDS: INSULIN ASPART PER UNIT SC SCH ×4 (08:28→20:54)
[2021-08-05] MEDS: FLUTICASONE/VILANTEROL 100/25MCG 14 PUFFS/INHALER INH SCH (09:49)
[2021-08-05] MEDS: CITALOPRAM 20 MG TAB PO SCH (09:50)
[2021-08-05] MEDS: METOPROLOL TARTRATE 25 MG TAB PO SCH ×2 (09:52→20:34)
[2021-08-05] MEDS: guaiFENesin 600 MG TABCR PO SCH ×2 (09:52→20:33)
[2021-08-05] MEDS: rOPINIRole HCL 2 MG TABLET PO SCH ×3 (09:52→20:35)
[2021-08-05] MEDS: SENNA 8.6 MG TAB PO PRN (09:53)
[2021-08-05] MEDS: FOLIC ACID 1 MG TAB PO SCH (09:54)
[2021-08-05] MEDS: SPIRONOLACTONE 12.5 MG TAB PO SCH (09:55)
[2021-08-05] MEDS: FUROSEMIDE 40 MG TAB PO SCH (09:56)
[2021-08-05] MEDS: AZELASTINE HCL 0.1% NASAL 200 SPRAYS/27,400 MCG BTL SCH ×2 (09:56→20:31)
--- NOTE | 2021-08-05 10:58 | XRay Report ---
XR chest 1V portable CLINICAL HISTORY: ?infection COMPARISON STUDY: Chest CT July 18, 2021. Chest radiograph July 21, 2021. FINDINGS: Median sternotomy wires and a prosthetic mitral valve are noted. Electronic device projects over the left chest. Marked cardiomegaly is noted. Pulmonary vascular congestion has improved. Right basilar opacity has significantly improved since prior exam. There is no pneumothorax or pleural eff usion. IMPRESSION: 1. Significant improvement in right basilar airspace opacity since chest radiograph of July 21, 2021. 2. Pulmonary vascular congestion, slightly improved since prior exam. 3. Stable marked cardiomegaly. ACT 112: Negative or not required by law. Electronically signed by: Trey Fox M.D. 08/05/2021 10:56 AM
[2021-08-05] MEDS: POLYETHYLENE (MIRALAX) 17 GM PACK PO SCH (14:07)
[2021-08-05 14:54] LABS: Appearance Urine Clear (Clear); Bacteria Urine Automated Negative (Negative); Bilirubin Urine Negative (Negative); Blood Urine 1+ (Negative); Color Urine Yellow; Epithelial Cell Urine Auto >30 /lpf (0-5); Glucose Urine UA Negative (Negative); Ketones Urine Negative (Negative); Leukocyte Esterase Urine Negative (Negative); Nitrite Urine Negative (Negative); Protein Urine 1+ (Negative); Specific Gravity Urine 1.015 (1.000-1.030); Urobilinogen Urine Negative (Negative)
[2021-08-05 15:14] LABS: RBC Urine Automated 0-4 /hpf (0-4)
[2021-08-05 15:15] LABS: Renal Epithelial Cells Urine 0-5 /lpf (0-5)
[2021-08-05] MEDS: WARFARIN SOD 5 MG TAB PO SCH (16:01)
--- NOTE | 2021-08-05 17:33 | Hospitalist Progress Note ---
Date of Service August 05, 2021 Assessment & Plan (1) H/O mitral valve replacement with mechanical valve: (2) Nontraumatic intramuscular hematoma: Plan: 65-year-old female with past medical history of significant for type 2 diabetes, currently not on any medications, chronic kidney disease stage III, hypothyroidism, hyperlipidemia, atrial fibrillation, tachybrady syndrome, history of syncope, status post loop recorder, chronic diastolic CHF, history of rheumatic heart disease, history of CAD, varicose veins of both legs, history of GERD, generalized osteoarthritis, restless legs syndrome, status post mechanical mitral valve replacement, history of TIA, history of recurrent falls, generalized anxiety disorder who was recently admitted 07/18-07/25 for shortness of breath and leg swelling improved with iv diuresis; also had EGD 07/24 for barium pill stuck in esophagus and was discharged on lovenox 60 bid along with coumadin because of subtherapeutic INR (h/o mechanical MVR) presented to the ED 08/02 with worsening left thigh pain for the past 2 days [employer]. She is being managed for the following: Admitting CT LLE 1. Acute intramuscular hemorrhage within the left iliacus, iliopsoas muscles and adductor muscles. Associated extraperitoneal hemorrhage. At least moderate intramuscular hemorrhage. Proximal extent of intramuscular hemorrhage not imaged on this exam. No active extravasation within visualized portions of the intramuscular hemorrhage. 2. Patent left common femoral and superficial femoral arteries. Intramuscular hematoma, non traumatic - CT reviewed as above- no active extravasation noted. No flank or abd tenderness to suspect Retroperitoneal bleed. - Hb at 10.1 at presentation, INR 2.7- received 1 mg of Vit K - Currently no compartment syndrome but will watch closely- if so, will need urgent ortho evaluation and probably complete reversal of INR - Trend H&H, transfuse as indicated --> Hb stable around 8.5- 9, no erythema or increasing swelling. continue to monitor. INR 1.5 Mechanical MV on coumadin Permanent Afib H/o embolic [place] and TIA c/w coumadin, recheck INR in am- cardio on board. Goal INR 3-3.5. Moving forward will avoid Lovenox or subcutaneous heparin bridges. On lopressor increased to 25 mg PO BID per cardio Electrolytes abnormality: Monitor and replete electrolytes, maintain K greater than 4 and Mg greater than 2 Hyponatremia: Na 128, generally 130-133 at baseline. Increase protein content in diet, FR, and low sodium diet, continue to monitor. If worsening consider nephro. Leucocytosis:WBC elevated at admission, trended up to 16.75K, today trending down, afebrile, procal minimally elevated but trending down. Likely reactive to hematoma. 08/05 CXR w/ no acute finding. UA reviewed, UCx pending, Bl Cx pending Possible asthmatic bronchitis- started on breo and combivent prn by pulm during recent admission, continue w/ same. CKD3- Cr stable at baseline of around 1.4-1.6 Chronic diastolic CHF- on lasix and aldactone- resume as indicated BOBBY- on celexa DM-2- A1 7. not on insulin, SSI prn GERD- on PPI Dispo- PCU tele DVT ppx- coumadin Full Code. Admission and Anticipated Discharge Date Admission Date: August 02, 2021 Subjective Patient seen and examined at bedside as a follow-up of nontraumatic intramuscular hematoma x left thigh. Patient was lying in bed, on room air, no acute events overnight, reports eating ok but no appetite, not in acute distress, reports swelling and numbness of left thigh & pain worse with movement --now slightly improving, continue w/ PT/OT. Reports having bowel movement 4 days ago, her usual habit is every 2-day.Will increase laxatives. Patient denies headache/dizziness/chest pain/palpitation. Denies sore throat or cough. denies other review of symptoms. Physical Exam Physical Exam: GENERAL: Alert and oriented x3. NAD, on RA. HEENT: No pallor, no icterus. Pupils equal, round and reactive to light. Oral mucosa moist. NECK: No JVD, no neck masses. HEART: S1 and S2 heard. irregular rate and rhythm. No murmur, no gallop. RESPIRATORY SYSTEM: Normal AP diameter. No accessory muscle use. occasional crackles and wheezes ABDOMEN: Soft, bowel sounds present, nontender, no distention. CENTRAL NERVOUS SYSTEM: No facial droop. Speech is clear. Obeys simple commands. Moves extremities. EXTREMITIES: trace ble edema, no erythema seen. Lt thigh swollen/tender/no bruise or erythema noted --stable in size and appearance. Distal NV status x LLE normal. ROM LLE limited d/t pain. Results & Data Results & Data ([facility]) Vital Signs (Past 12 Hours) Vital Signs Temp Pulse Resp BP BP Pulse Ox 08/05/21 16:05 37.1 C 101 H 18 118/66 97 08/05/21 11:14 90 18 95 08/05/21 08:00 36.8 C 84 16 109/63 08/05/21 06:49 88 17 95
[2021-08-05] MEDS: METOCLOPRAMIDE HCL 10 MG TABLET PO PRN (17:48)
[2021-08-05] MEDS: PANTOprazole 40 MG TAB PO SCH (20:35)
[2021-08-05] MEDS: ROSUVASTATIN CALCIUM 20 MG TAB PO SCH (20:35)
[2021-08-06] MEDS: HYDROmorphone INJ 0.5 MG/0.5 ML SYR IV PRN ×4 (02:17→16:29)
[2021-08-06] MEDS: traMADol HCL 50 MG TABLET PO PRN ×2 (04:51→23:53)
[2021-08-06 05:54] LABS: Hemoglobin 8.2 g/dL (12.0-16.0); Mean Corpuscular Hemoglobin 26.7 pg (25-34); Mean Corpuscular Hgb Conc 31.5 g/dL (32-36); Mean Corpuscular Volume 84.7 fL (80-100); Mean Platelet Volume 10.1 fL (7.4-10.4); Platelet Count 245 K/uL (130-400); RDW Coefficient of Variation 17.1 % (11.5-14.5); RDW Standard Deviation 50.9 fL (36.4-46.3); Red Blood Count 3.07 M/uL (4.2-5.4); White Blood Count 12.09 K/uL (4.8-10.8)
[2021-08-06 06:28] LABS: BUN Creatinine Ratio 18.8 (10-20); Creatinine Clr Calc Pharmacy 25.5 ml/min; Est GFR (African American) 36.6 ml/min; Est GFR (Non-African American) 31.6 ml/min; Magnesium 2.4 mg/dl (1.7-2.4); Phosphorus 3.3 mg/dl (2.5-4.9); Potassium 4.3 mmol/L (3.5-5.1)
[2021-08-06] MEDS: LEVOTHYROXINE SODIUM 100 MCG TABLET PO SCH (06:32)
[2021-08-06] MEDS: ALBUT/IPRATROP 3MG/0.5MG NEB 3 ML VIAL INH SCH ×4 (07:00→19:02)
[2021-08-06] MEDS: FLUTICASONE/VILANTEROL 100/25MCG 14 PUFFS/INHALER INH SCH (07:51)
[2021-08-06] MEDS: AZELASTINE HCL 0.1% NASAL 200 SPRAYS/27,400 MCG BTL SCH ×2 (07:52→20:25)
[2021-08-06] MEDS: INSULIN ASPART PER UNIT SC SCH ×4 (08:00→21:25)
[2021-08-06 09:00] LABS: INR 2.3 (0.9-1.1)
[2021-08-06] MEDS: SPIRONOLACTONE 12.5 MG TAB PO SCH (09:05)
[2021-08-06] MEDS: guaiFENesin 600 MG TABCR PO SCH ×2 (09:05→20:28)
[2021-08-06] MEDS: FUROSEMIDE 40 MG TAB PO SCH (09:05)
[2021-08-06] MEDS: POLYETHYLENE (MIRALAX) 17 GM PACK PO SCH (09:05)
[2021-08-06] MEDS: METOPROLOL TARTRATE 25 MG TAB PO SCH ×2 (09:05→20:29)
[2021-08-06] MEDS: FOLIC ACID 1 MG TAB PO SCH (09:06)
[2021-08-06] MEDS: rOPINIRole HCL 2 MG TABLET PO SCH ×3 (09:06→20:29)
[2021-08-06] MEDS: CITALOPRAM 20 MG TAB PO SCH (09:06)
--- NOTE | 2021-08-06 15:41 | Hospitalist Progress Note ---
Date of Service August 06, 2021 Assessment & Plan (1) H/O mitral valve replacement with mechanical valve: (2) Nontraumatic intramuscular hematoma: Plan: 65-year-old female with past medical history of significant for type 2 diabetes, currently not on any medications, chronic kidney disease stage III, hypothyroidism, hyperlipidemia, atrial fibrillation, tachybrady syndrome, history of syncope, status post loop recorder, chronic diastolic CHF, history of rheumatic heart disease, history of CAD, varicose veins of both legs, history of GERD, generalized osteoarthritis, restless legs syndrome, status post mechanical mitral valve replacement, history of TIA, history of recurrent falls, generalized anxiety disorder who was recently admitted 07/18-07/25 for shortness of breath and leg swelling improved with iv diuresis; also had EGD 07/24 for barium pill stuck in esophagus and was discharged on lovenox 60 bid along with coumadin because of subtherapeutic INR (h/o mechanical MVR) presented to the ED 08/02 with worsening left thigh pain for the past 2 days [employer] EXEC[employer]IVE. She is being managed for the following: Admitting CT LLE 1. Acute intramuscular hemorrhage within the left iliacus, iliopsoas muscles and adductor muscles. Associated extraperitoneal hemorrhage. At least moderate intramuscular hemorrhage. Proximal extent of intramuscular hemorrhage not imaged on this exam. No active extravasation within visualized portions of the intramuscular hemorrhage. 2. Patent left common femoral and superficial femoral arteries. Intramuscular hematoma, non traumatic - CT reviewed as above- no active extravasation noted. No flank or abd tenderness to suspect Retroperitoneal bleed. - Hb at 10.1 at presentation, INR 2.7- received 1 mg of Vit K - Currently no compartment syndrome but will watch closely- if so, will need urgent ortho evaluation and probably complete reversal of INR - Trend H&H, transfuse as indicated --> Hb stable around 8.5, no erythema or increasing swelling. continue to monitor. INR 2.3 - PT/OT, likely DC to snf required. Pt denying any placement. Mechanical MV on coumadin Permanent Afib H/o embolic [place] and TIA c/w coumadin, recheck INR in am- cardio on board. Goal INR 3-3.5. Moving forward will avoid Lovenox or subcutaneous heparin bridges. On lopressor increased to 25 mg PO BID per cardio Electrolytes abnormality: Monitor and replete electrolytes, maintain K greater than 4 and Mg greater than 2 Hyponatremia: Na 128 again today, generally 130-133 at baseline. Increase protein content in diet, FR, and low sodium diet, continue to monitor. Pt indicating improvement in appetite slightly, monitor. If worsening consider nephro. Leucocytosis:WBC elevated at admission, trended up to 16.75K, today trending down, afebrile, procal minimally elevated but trending down. Likely reactive to hematoma. 08/05 CXR w/ no acute finding. UA reviewed, UCx pending, Bl Cx pending Possible asthmatic bronchitis- started on breo and combivent prn by pulm during recent admission, continue w/ same. CKD3- Cr stable at baseline of around 1.4-1.6 Chronic diastolic CHF- on lasix and aldactone- resume as indicated BOBBY- on celexa DM-2- A1 7. not on insulin, SSI prn GERD- on PPI Dispo- PCU tele, expect dc in next 2-3 days if placement. DVT ppx- coumadin Full Code. Admission and Anticipated Discharge Date Admission Date: August 02, 2021 Subjective Patient seen and examined at bedside as a follow-up of nontraumatic intramuscular hematoma x left thigh. Patient was lying in bed, on room air, no acute events overnight, reports eating ok but no appetite, not in acute distress, reports swelling and numbness of left thigh & pain worse with movement -- now can move sideways without much pain, continue w/ PT/OT. Reports having bowel movement 5 days ago but is moving gas and no belly pain, her usual habit is every 2-day.Use prn laxatives. Patient denies headache/dizziness/chest pain/palpitation. Denies sore throat or cough. denies other review of symptoms. Physical Exam Physical Exam: GENERAL: Alert and oriented x3. NAD, on RA. HEENT: No pallor, no icterus. Pupils equal, round and reactive to light. Oral mucosa moist. NECK: No JVD, no neck masses. HEART: S1 and S2 heard. irregular rate and rhythm. No murmur, no gallop. RESPIRATORY SYSTEM: Normal AP diameter. No accessory muscle use. occasional crackles and wheezes ABDOMEN: Soft, bowel sounds present, nontender, no distention. CENTRAL NERVOUS SYSTEM: No facial droop. Speech is clear. Obeys simple commands. Moves extremities. EXTREMITIES: trace ble edema, no erythema seen. Lt thigh swollen/tender/ medial thigh bruise or no erythema noted -- stable in size and appearance. Distal NV status x LLE normal. ROM LLE limited d/t pain. Results & Data Results & Data ([facility]) Vital Signs (Past 12 Hours) Vital Signs Temp Pulse Resp BP Pulse Ox 08/06/21 15:04 98 H 18 96 08/06/21 11:40 37.4 C 99 H 20 113/63 96 08/06/21 11:00 99 H 17 96 08/06/21 07:30 36.7 C 89 19 129/71 92 08/06/21 07:04 100 H 18 97 08/06/21 03:47 37.3 C 98 H 14 106/68 97
[2021-08-06] MEDS: WARFARIN SOD 5 MG TAB PO SCH (16:00)
[2021-08-06] MEDS: DOCUSATE SODIUM 100 MG CAP PO SCH ×2 (16:00→20:28)
[2021-08-06] MEDS: MELATONIN 3 MG TAB PO SCH (20:28)
[2021-08-06] MEDS: BENZONATATE 100 MG CAPSULE PO SCH (20:28)
[2021-08-06] MEDS: PANTOprazole 40 MG TAB PO SCH (20:29)
[2021-08-06] MEDS: ROSUVASTATIN CALCIUM 20 MG TAB PO SCH (20:29)
[2021-08-07] MEDS: HYDROmorphone INJ 0.5 MG/0.5 ML SYR IV PRN ×2 (03:33→12:50)
[2021-08-07] MEDS: LEVOTHYROXINE SODIUM 100 MCG TABLET PO SCH (05:49)
[2021-08-07 06:16] LABS: Hematocrit (blood only) 25.8 % (37-47); Mean Corpuscular Hemoglobin 26.3 pg (25-34); Mean Corpuscular Volume 84.9 fL (80-100); Mean Platelet Volume 10.2 fL (7.4-10.4); Platelet Count 249 K/uL (130-400); RDW Coefficient of Variation 17.3 % (11.5-14.5); RDW Standard Deviation 51.8 fL (36.4-46.3); Red Blood Count 3.04 M/uL (4.2-5.4); White Blood Count 9.21 K/uL (4.8-10.8)
[2021-08-07 06:27] LABS: INR 3.2 (0.9-1.1)
[2021-08-07 06:45] LABS: Calcium 9.7 mg/dl (8.5-10.1); Creatinine Clr Calc Pharmacy 26.3 ml/min; Est GFR (Non-African American) 32.8 ml/min; Magnesium 2.4 mg/dl (1.7-2.4); Phosphorus 3.9 mg/dl (2.5-4.9); Potassium 4.4 mmol/L (3.5-5.1)
[2021-08-07] MEDS: ALBUT/IPRATROP 3MG/0.5MG NEB 3 ML VIAL INH SCH ×4 (06:53→19:41)
[2021-08-07] MEDS: rOPINIRole HCL 2 MG TABLET PO SCH ×3 (08:34→20:46)
[2021-08-07] MEDS: AZELASTINE HCL 0.1% NASAL 200 SPRAYS/27,400 MCG BTL SCH ×2 (08:34→20:40)
[2021-08-07] MEDS: POLYETHYLENE (MIRALAX) 17 GM PACK PO SCH (08:34)
[2021-08-07] MEDS: BENZONATATE 100 MG CAPSULE PO SCH ×3 (08:35→20:46)
[2021-08-07] MEDS: FLUTICASONE/VILANTEROL 100/25MCG 14 PUFFS/INHALER INH SCH (08:35)
[2021-08-07] MEDS: guaiFENesin 600 MG TABCR PO SCH ×2 (08:35→20:46)
[2021-08-07] MEDS: METOPROLOL TARTRATE 25 MG TAB PO SCH ×2 (08:35→20:46)
[2021-08-07] MEDS: FOLIC ACID 1 MG TAB PO SCH (08:36)
[2021-08-07] MEDS: DOCUSATE SODIUM 100 MG CAP PO SCH ×2 (08:36→20:46)
[2021-08-07] MEDS: FUROSEMIDE 40 MG TAB PO SCH (08:37)
[2021-08-07] MEDS: CITALOPRAM 20 MG TAB PO SCH (08:37)
[2021-08-07] MEDS: SPIRONOLACTONE 12.5 MG TAB PO SCH (08:37)
[2021-08-07] MEDS: INSULIN ASPART PER UNIT SC SCH ×4 (08:44→21:03)
--- NOTE | 2021-08-07 09:04 | Cardiology Progress Note ---
Date of Service August 07, 2021 Assessment & Plan (1) Nontraumatic intramuscular hematoma: (2) Hematoma of left thigh: (3) Rheumatic heart disease: (4) H/O mitral valve replacement with mechanical valve: (5) Chronic diastolic CHF (congestive heart failure): (6) History of CVA (cerebrovascular accident): (7) Myocardial infarction: (8) Permanent atrial fibrillation: Plan: Very medically complex 66-year-old female with a history of rheumatic heart disease undergoing a mechanical mitral valve replacement in 1993. She also carries a history of past embolic myocardial infarctions and TIA. She has permanent atrial fibrillation and is chronically anticoagulated on Coumadin. Presented to the emergency department yesterday 08/02 with left leg and groin pain. Found to have spontaneous hematoma of the left thigh in the setting of a Lovenox bridge to Coumadin. All pulses palpable in left lower extremity. Swelling minimal. No significant abdominal discomfort, ecchymosis noted. No chest pain. Hemoglobin stable in the 8s. -INR this am 3.2-- Will need to follow up with [facility] Coumadin [facility] at discharge. Goal INR 3-3.5 due to mechanical mitral valve. Moving forward will avoid Lovenox or subcutaneous heparin bridges. -Continue to monitor CBC and renal function daily while admitted, replete electrolytes as needed, potassium goal of 4.0 and mag goal of 2.0 -Atrial fib rates controlled. Continue metoprolol to 25 mg twice daily. Continue to monitor on telemetry while admitted. -Euvolemic on exam. Recommend less than 2 g sodium diet. Ongoing mild hyponatremia since admission, on Aldactone 12.5 mg. Sodium level improving- Aldactone normally well tolerated as an outpatient. -On discharge would recommend patient resuming home dose of Lasix (Lasix 40 mg x3 days per week and 80 mg x4 days per week). Will need BMP 1 week following discharge to reassess renal function and electrolytes. -PT/OT evaluation- recommending rehab placement, patient declining. OOB with meals recommended. Case discussed with Dr. Ruelas- Will follow. Admission and Anticipated Discharge Date Admission Date: August 02, 2021 Subjective Medically complex 66-year-old female with history of rheumatic valvular heart disease status post mitral valve replacement with a mechanical [employer] prosthesis in 1993. On chronic anticoagulation with Coumadin. Also has a history of permanent atrial fibrillation and prior embolic CVA. Primarily follows with Dr. Molina as an outpatient. Recently admitted from 07/18-07/25 for acute on chronic diastolic CHF, symptoms improved with IV diuresis. She did have to undergo an EGD and Coumadin was held for 24 hours. Due to a subtherapeutic INR patient was started on a Lovenox bridge to Coumadin. On 08/02 she presented to the emergency department with left leg and left groin pain. She was found to have an acute intramuscular hemorrhage. She was given vitamin K-INR reduced to 2.7>>1.9>>1.3>>1.2. Coumadin restarted on 08/03. Tele: Afib 80-90s Chart and telemetry reviewed. Patient seen and examined at bedside. Upon entrance into the room patient resting in bed. Had been limiting her movement however notes that today the discomfort in her leg is much improved. Numbness resolving and is only noted from the knee up. No abdominal discomfort. No chest pain. No chest pain or shortness of breath. Denies any blood in the stools or urine. Review of Systems Review of Systems: All systems reviewed & are unremarkable except as noted in HPI & below Physical Exam Constitutional: WD/WN, vitals as above Eyes: PERRL, conjunctivae normal, anicteric sclerae ENMT: external ear and nose normal, oropharynx normal Neck: normal visual inspection Respiratory: normal respiratory effort, lungs clear to auscultation no cough Auscultation: lungs clear to auscultation bilaterally Cardiovascular: Rate/Rhythm: + tachycardic and + irregularly irregular Heart Sounds: normal S1, normal S2 and + murmur (+crisp mechanical valve closure) Vessels: normal peripheral pulses, femoral pulses present and popliteal pulses present; no JVD Extremities: + varicosities; no edema Gastrointestinal (Abdomen): Percussion/Palpation: abdomen soft; abdomen nontender Skin: no rashes, warm and dry + ecchymosis (abdomen at lovenox injection sites) Neurologic: PERRL, EOMI, accommodation nl, no face palsy, no dysarthria Motor/Sensory: no tremor Psychiatric: A+Ox3, euthymic affect Orientation: cooperative Affect: + anxious affect and + tearful affect Results & Data ([facility]) Vital Signs (Past 12 Hours) Vital Signs Temp Pulse Pulse Resp BP Pulse Ox 08/07/21 07:23 36.8 C 85 18 101/59 L 100 08/07/21 07:00 75 08/07/21 06:53 77 18 98 08/07/21 03:47 36.7 C 87 18 118/71 97 08/07/21 01:05 87 08/07/21 00:22 36.7 C 86 20 113/64 98 (1) Hematoma of left thigh Encounter type: initial encounter Qualified Code(s): S70.12XA - Contusion of left thigh, initial encounter
[2021-08-07] MEDS: traMADol HCL 50 MG TABLET PO PRN ×2 (10:21→23:26)
[2021-08-07] MEDS: WARFARIN SOD 5 MG TAB PO SCH (17:00)
[2021-08-07] MEDS ORDERED: VANCOMYCIN CONSULT ACTIVE PRN (17:01)
--- NOTE | 2021-08-07 17:13 | Hospitalist Progress Note ---
Date of Service August 07, 2021 Assessment & Plan (1) H/O mitral valve replacement with mechanical valve: (2) Nontraumatic intramuscular hematoma: Plan: 65-year-old female with past medical history of significant for type 2 diabetes, currently not on any medications, chronic kidney disease stage III, hypothyroidism, hyperlipidemia, atrial fibrillation, tachybrady syndrome, history of syncope, status post loop recorder, chronic diastolic CHF, history of rheumatic heart disease, history of CAD, varicose veins of both legs, history of GERD, generalized osteoarthritis, restless legs syndrome, status post mechanical mitral valve replacement, history of TIA, history of recurrent falls, generalized anxiety disorder who was recently admitted 07/18-07/25 for shortness of breath and leg swelling improved with iv diuresis; also had EGD 07/24 for barium pill stuck in esophagus and was discharged on lovenox 60 bid along with coumadin because of subtherapeutic INR (h/o mechanical MVR) presented to the ED 08/02 with worsening left thigh pain for the past 2 days [employer]. She is being managed for the following: Admitting CT LLE 1. Acute intramuscular hemorrhage within the left iliacus, iliopsoas muscles and adductor muscles. Associated extraperitoneal hemorrhage. At least moderate intramuscular hemorrhage. Proximal extent of intramuscular hemorrhage not imaged on this exam. No active extravasation within visualized portions of the intramuscular hemorrhage. 2. Patent left common femoral and superficial femoral arteries. Intramuscular hematoma, non traumatic - CT reviewed as above- no active extravasation noted. No flank or abd tenderness to suspect Retroperitoneal bleed. - Hb at 10.1 at presentation, INR 2.7- received 1 mg of Vit K - Currently no compartment syndrome but will watch closely- if so, will need urgent ortho evaluation and probably complete reversal of INR - Trend H&H, transfuse as indicated --> Hb stable around 8.0, no erythema or increasing swelling. continue to monitor. INR 3.2. Pt has been on current dose of warfarin for long time per Pt. - PT/OT, likely DC to snf required. Pt denying any placement. Mechanical MV on coumadin Permanent Afib H/o embolic [place] and TIA c/w coumadin, recheck INR in am- cardio on board. Goal INR 3-3.5. Moving forward will avoid Lovenox or subcutaneous heparin bridges. On lopressor increased to 25 mg PO BID per cardio Electrolytes abnormality: Monitor and replete electrolytes, maintain K greater than 4 and Mg greater than 2 Hyponatremia: Na 131 today, generally 130-133 at baseline. Increase protein content in diet, FR, and low sodium diet, continue to monitor. Appetite better, monitor. Leucocytosis:WBC elevated at admission, trended up to 16.75K, trending down, afebrile, procal minimally elevated but trended down. Likely reactive to hematoma. 08/05 CXR w/ no acute finding. UA reviewed, UCx pending, Bl Cx pending Staph UTI: 08/05 UCx +ve for Staph spp. Vanco 08/07. f/u final C/s. Pt not on catheter, S. aureusbacteriuria in the absence of a urinary catheter may be an indicator ofS. aureusbacteremia, hence f/u Bl Cx reports as well. Possible asthmatic bronchitis- started on breo and combivent prn by pulm during recent admission, continue w/ same. CKD3- Cr stable at baseline of around 1.4-1.6 Chronic diastolic CHF- on lasix and aldactone- resume as indicated. Lasix (per cardio) upon DC: 40mg 3 days/wk and 80 mg 4 days/wk. BMP in 1 wk upon DC. BOBBY- on celexa DM-2- A1 7. not on insulin, SSI prn GERD- on PPI Dispo- PCU tele, expect dc in next 2-3 days if placement. Will need hemoglobin and INR to stabilize before discharging. Med telemetry. DVT ppx- coumadin Full Code. Admission and Anticipated Discharge Date Admission Date: August 02, 2021 Subjective Patient seen and examined at bedside as a follow-up of nontraumatic intramuscular hematoma x left thigh. Patient was sitting up in bed, on room air, no acute events overnight, reports eating ok but no appetite, not in acute distress, reports swelling and numbness of left thigh & painimproving w/ increasing ROM, continue w/ PT/OT. Reports having bowel movement 6 days ago but is moving gas and no belly pain, her usual habit is every 2-day.Use prn laxatives. Appetite better. Patient denies headache/dizziness/chest pain/palpitation. Denies sore throat or cough. denies other review of symptoms. Physical Exam Physical Exam: GENERAL: Alert and oriented x3. NAD, on RA. HEENT: No pallor, no icterus. Pupils equal, round and reactive to light. Oral mucosa moist. NECK: No JVD, no neck masses. HEART: S1 and S2 heard. irregular rate and rhythm. No murmur, no gallop. RESPIRATORY SYSTEM: Normal AP diameter. No accessory muscle use. occasional crackles and wheezes ABDOMEN: Soft, bowel sounds present, nontender, no distention. CENTRAL NERVOUS SYSTEM: No facial droop. Speech is clear. Obeys simple commands. Moves extremities. EXTREMITIES: trace ble edema, no erythema seen. Lt thigh swollen/tender/ medial thigh bruise or no erythema noted -- stable in size and appearance. Distal NV s tatus x LLE normal. ROM LLE limited d/t pain --> improving Results & Data Results & Data ([facility]) Vital Signs (Past 12 Hours) Vital Signs Temp Pulse Pulse Resp BP Pulse Ox 08/07/21 16:00 36.7 C 90 19 115/62 94 08/07/21 15:12 81 97 08/07/21 15:00 85 08/07/21 12:07 37.2 C 88 18 111/64 97 08/07/21 11:12 99 H 18 95 08/07/21 07:23 36.8 C 85 18 101/59 L 100 08/07/21 07:00 75 08/07/21 06:53 77 18 98
[2021-08-07] MEDS ORDERED: VANCOMYCIN HCL 1,250 MG in SODIUM CHLORIDE 0.9% 250 ML IV ONE (17:30)
--- NOTE | 2021-08-07 19:22 | Pharmacy Report ---
Pharmacy Vanc AUC Short Note - Date of Service August 07, 2021 - Assessment & Plan Assessment 66 year old F receiving IV vancomycin for treatment of urinary infection. Urine culture (+) Staph spp. Blood cultures no growth @ 48h. CKD stage III, SCr 1.6. Renal function stable. Day #1 of antimicrobial therapy. Plan Vancomycin * AUC/DNEA is the preferred PK/PD target for vancomycin. AUC guided dosing is effective and associated with decreased risk of nephrotoxicity compared to traditional trough targets * Trough level of 16 mcg/mL is predicted to achieve target AUC/DENA of 400-600 mg/L.hr and may be associated with a 11% risk of nephrotoxicity * S/p vancomycin loading dose of 1250mg IV X 1. Begin maintenance dose of 750 mg IV every 24 hours * Will order a trough/random level around 48hr of therapy or sooner if clinically indicated. Pharmacy will continue to follow and will adjust dose/frequency as necessary. Thank you.
[2021-08-07] MEDS: ROSUVASTATIN CALCIUM 20 MG TAB PO SCH (20:46)
[2021-08-07] MEDS: PANTOprazole 40 MG TAB PO SCH (20:46)
[2021-08-07] MEDS: MELATONIN 3 MG TAB PO SCH (20:46)
[2021-08-08] MEDS: VANCOMYCIN HCL 750 MG in SODIUM CHLORIDE 0.9% 250 ML IV SCH (05:10)
[2021-08-08] MEDS: LEVOTHYROXINE SODIUM 100 MCG TABLET PO SCH (05:10)
[2021-08-08 06:58] LABS: Hemoglobin 7.9 g/dL (12.0-16.0); Mean Corpuscular Hemoglobin 26.7 pg (25-34); Mean Corpuscular Hgb Conc 31.6 g/dL (32-36); Mean Corpuscular Volume 84.5 fL (80-100); Platelet Count 260 K/uL (130-400); RDW Coefficient of Variation 17.2 % (11.5-14.5); RDW Standard Deviation 51.8 fL (36.4-46.3); Red Blood Count 2.96 M/uL (4.2-5.4); White Blood Count 9.71 K/uL (4.8-10.8)
[2021-08-08 07:11] LABS: BUN Creatinine Ratio 17.5 (10-20); Calcium 9.5 mg/dl (8.5-10.1); Creatinine Clr Calc Pharmacy 29.4 ml/min; Est GFR (African American) 43.5 ml/min; Est GFR (Non-African American) 37.5 ml/min; INR 4.5 (0.9-1.1); Magnesium 2.1 mg/dl (1.7-2.4); Potassium 4.1 mmol/L (3.5-5.1); Prothrombin Time 44.6 Seconds (9.0-12.0)
[2021-08-08] MEDS: ALBUT/IPRATROP 3MG/0.5MG NEB 3 ML VIAL INH SCH ×4 (07:11→19:08)
[2021-08-08] MEDS: INSULIN ASPART PER UNIT SC SCH ×4 (08:52→17:58)
[2021-08-08] MEDS: AZELASTINE HCL 0.1% NASAL 200 SPRAYS/27,400 MCG BTL SCH ×2 (08:59→20:45)
[2021-08-08] MEDS: guaiFENesin 600 MG TABCR PO SCH ×2 (08:59→20:52)
[2021-08-08] MEDS: BENZONATATE 100 MG CAPSULE PO SCH ×3 (09:00→20:46)
[2021-08-08] MEDS: METOPROLOL TARTRATE 25 MG TAB PO SCH ×2 (09:00→20:53)
[2021-08-08] MEDS: rOPINIRole HCL 2 MG TABLET PO SCH ×3 (09:00→20:45)
[2021-08-08] MEDS: DOCUSATE SODIUM 100 MG CAP PO SCH ×2 (09:00→20:52)
[2021-08-08] MEDS: SPIRONOLACTONE 12.5 MG TAB PO SCH (09:01)
[2021-08-08] MEDS: FUROSEMIDE 40 MG TAB PO SCH (09:01)
[2021-08-08] MEDS: CITALOPRAM 20 MG TAB PO SCH (09:01)
[2021-08-08] MEDS: FOLIC ACID 1 MG TAB PO SCH (09:01)
[2021-08-08] MEDS: FLUTICASONE/VILANTEROL 100/25MCG 14 PUFFS/INHALER INH SCH (09:02)
[2021-08-08] MEDS: traMADol HCL 50 MG TABLET PO PRN (11:43)
[2021-08-08 15:02] LABS: Hematocrit (blood only) 26.5 % (37-47); Hemoglobin 8.3 g/dL (12.0-16.0)
[2021-08-08] MEDS: PANTOprazole 40 MG in SYRINGE 0 ML IV SCH ×2 (15:18→20:39)
[2021-08-08] MEDS ORDERED: Nursing to Pharmacy Communication SCH (16:30)
--- NOTE | 2021-08-08 16:51 | Hospitalist Progress Note ---
Date of Service August 08, 2021 Assessment & Plan (1) H/O mitral valve replacement with mechanical valve: (2) Nontraumatic intramuscular hematoma: Plan: 65-year-old female with past medical history of significant for type 2 diabetes, currently not on any medications, chronic kidney disease stage III, hypothyroidism, hyperlipidemia, atrial fibrillation, tachybrady syndrome, history of syncope, status post loop recorder, chronic diastolic CHF, history of rheumatic heart disease, history of CAD, varicose veins of both legs, history of GERD, generalized osteoarthritis, restless legs syndrome, status post mechanical mitral valve replacement, history of TIA, history of recurrent falls, generalized anxiety disorder who was recently admitted 07/18-07/25 for shortness of breath and leg swelling improved with iv diuresis; also had EGD 07/24 for barium pill stuck in esophagus and was discharged on lovenox 60 bid along with coumadin because of subtherapeutic INR (h/o mechanical MVR) presented to the ED 08/02 with worsening left thigh pain for the past 2 days [employer]. She is being managed for the following: Admitting CT LLE 1. Acute intramuscular hemorrhage within the left iliacus, iliopsoas muscles and adductor muscles. Associated extraperitoneal hemorrhage. At least moderate intramuscular hemorrhage. Proximal extent of intramuscular hemorrhage not imaged on this exam. No active extravasation within visualized portions of the intramuscular hemorrhage. 2. Patent left common femoral and superficial femoral arteries. Intramuscular hematoma, non traumatic - CT reviewed as above- no active extravasation noted. No flank or abd tenderness to suspect Retroperitoneal bleed. - Hb at 10.1 at presentation, INR 2.7- received 1 mg of Vit K - Currently no compartment syndrome but will watch closely- if so, will need urgent ortho evaluation and probably complete reversal of INR - Trend H&H, transfuse as indicated --> Hb stable around 8.0, no erythema or increasing swelling. continue to monitor. INR 3.2. Pt has been on current dose of warfarin for long time per Pt. - PT/OT, likely DC to snf required. Pt denying any placement. Mechanical MV on coumadin Permanent Afib H/o embolic [place] and TIA INR 4.5 today, hold coumadin, recheck INR in am- cardio on board. Goal INR 3- 3.5. Moving forward will avoid Lovenox or subcutaneous heparin bridges. On lopressor increased to 25 mg PO BID per cardio Melena: had multiple formed stools overnight, dark colored per RN, fobt +ve, pt on anticoagulation for Mechanical MV valve. NPO, GI consult, PPI IV BID. Await GI recs. Her left thigh bruise/left buttock bruise stable. Follow Hb in PM, transfuse for symptomatic anemia for Hb < 7.5 given cardiac history. Electrolytes abnormality: Monitor and replete electrolytes, maintain K greater than 4 and Mg greater than 2 Hyponatremia: Na 129, generally 130-133 at baseline. When on diet, increase protein content in diet, FR, and low sodium diet, continue to monitor. Consider Nephro if with worsening s/s. Leucocytosis:WBC elevated at admission, trended up to 16.75K, trending down, afebrile, procal minimally elevated but trended down. Likely reactive to hematoma. 08/05 CXR w/ no acute finding. UA reviewed, UCx pending, Bl Cx pending Staph UTI: 08/05 UCx +ve for Staph spp. Vanco 08/07. f/u final C/s. Pt not on catheter, S. aureusbacteriuria in the absence of a urinary catheter may be an indicator ofS. aureusbacteremia, hence f/u Bl Cx reports as well. Possible asthmatic bronchitis- started on breo and combivent prn by pulm during recent admission, continue w/ same. CKD3- Cr stable at baseline of around 1.4-1.6 Chronic diastolic CHF- on lasix and aldactone- resume as indicated. Lasix (per cardio) upon DC: 40mg 3 days/wk and 80 mg 4 days/wk. BMP in 1 wk upon DC. BOBBY- on celexa DM-2- A1 7. not on insulin, SSI prn GERD- on PPI Dispo- PCU tele, expect dc in next 2-3 days if placement. Will need hemoglobin and INR to stabilize before discharging. Med telemetry. DVT ppx- coumadin Full Code. Admission and Anticipated Discharge Date Admission Date: August 02, 2021 Subjective Patient seen and examined at bedside as a follow-up of nontraumatic intramuscular hematoma x left thigh. Patient was sitting up in bed, on room air, no acute events overnight, had vague unwell complaints for brief period in AM, telemetry w/ no acute changes and vitals stable around the time. Pt denied SOB and chest pain. Reports eating ok, had multiple bowel movements. Stool dark colored per RN. FOBT +ve, pt on anticoagulation for Mechanical MV, Hb low but now seems to be stable, supra INR today, hold coumadin for today, follw coumadin in AM, NPO until seen by GI, PPI IV BID. Hb repeat in PM. Reports swelling and numbness of left thigh & painimproving w/ increasing ROM, continue w/ PT/OT. Patient denies headache/dizziness/chest pain/palpitation. Denies sore throat or cough. denies other review of symptoms. Physical Exam Physical Exam: GENERAL: Alert and oriented x3. NAD, on RA. HEENT: No pallor, no icterus. Pupils equal, round and reactive to light. Oral mucosa moist. NECK: No JVD, no neck masses. HEART: S1 and S2 heard. irregular rate and rhythm. No murmur, no gallop. RESPIRATORY SYSTEM: Normal AP diameter. No accessory muscle use. CTA. ABDOMEN: Soft, bowel sounds present, nontender, no distention. CENTRAL NERVOUS SYSTEM: No facial droop. Speech is clear. Obeys simple commands. Moves extremities. EXTREMITIES: trace ble edema, no erythema seen. Lt swelling improving, bruise medial left thigh and left buttock/low back stable, No erythema. Tenderness/numbness and ROM improving. Distal NV status normal. Results & Data Results & Data ([facility]) Vital Signs (Past 12 Hours) Vital Signs Temp Pulse Pulse Resp BP Pulse Ox 08/08/21 16:22 36.7 C 67 18 102/57 L 94 08/08/21 15:51 79 08/08/21 14:56 88 17 95 08/08/21 11:49 36.8 C 79 18 117/67 96 08/08/21 10:51 75 16 95 08/08/21 08:44 97 H 117/67 08/08/21 08:15 36.5 C 77 18 98/55 L 100 08/08/21 07:13 75 18 96
[2021-08-08] MEDS: HYDROmorphone INJ 0.5 MG/0.5 ML SYR IV PRN (20:38)
[2021-08-08] MEDS: MELATONIN 3 MG TAB PO SCH (20:52)
[2021-08-08] MEDS: ROSUVASTATIN CALCIUM 20 MG TAB PO SCH (20:53)
[2021-08-08 23:02] LABS: Hematocrit (blood only) 23.8 % (37-47); Hemoglobin 7.6 g/dL (12.0-16.0)
[2021-08-09] MEDS: INSULIN ASPART PER UNIT SC SCH ×4 (01:06→18:14)
[2021-08-09] MEDS: HYDROmorphone INJ 0.5 MG/0.5 ML SYR IV PRN ×2 (04:32→17:54)
[2021-08-09] MEDS ORDERED: VANCOMYCIN LEVEL ONE (05:30)
[2021-08-09] MEDS: LEVOTHYROXINE SODIUM 100 MCG TABLET PO SCH (05:39)
[2021-08-09 06:09] LABS: Hematocrit (blood only) 25.7 % (37-47); Hemoglobin 8.1 g/dL (12.0-16.0); Mean Corpuscular Hemoglobin 26.9 pg (25-34); Mean Corpuscular Hgb Conc 31.5 g/dL (32-36); Mean Corpuscular Volume 85.4 fL (80-100); Mean Platelet Volume 9.8 fL (7.4-10.4); Platelet Count 254 K/uL (130-400); RDW Coefficient of Variation 17.1 % (11.5-14.5); RDW Standard Deviation 52.1 fL (36.4-46.3); Red Blood Count 3.01 M/uL (4.2-5.4); White Blood Count 7.79 K/uL (4.8-10.8)
[2021-08-09 06:31] LABS: Prothrombin Time 68.2 Seconds (9.0-12.0)
[2021-08-09 06:35] LABS: BUN Creatinine Ratio 15.1 (10-20); Calcium 9.5 mg/dl (8.5-10.1); Creatinine Clr Calc Pharmacy 30.3 ml/min; Est GFR (Non-African American) 38.8 ml/min; Magnesium 2.1 mg/dl (1.7-2.4); Phosphorus 3.1 mg/dl (2.5-4.9); Potassium 3.8 mmol/L (3.5-5.1)
[2021-08-09] MEDS: VANCOMYCIN HCL 750 MG in SODIUM CHLORIDE 0.9% 250 ML IV SCH (06:43)
[2021-08-09 06:50] LABS: INR 7.1 (0.9-1.1)
[2021-08-09] MEDS: ALBUT/IPRATROP 3MG/0.5MG NEB 3 ML VIAL INH SCH ×4 (06:58→19:43)
[2021-08-09] MEDS: PANTOprazole 40 MG in SYRINGE 0 ML IV SCH ×2 (08:26→21:51)
[2021-08-09] MEDS: METOPROLOL TARTRATE 25 MG TAB PO SCH ×2 (08:26→23:19)
[2021-08-09] MEDS: AZELASTINE HCL 0.1% NASAL 200 SPRAYS/27,400 MCG BTL SCH ×2 (08:28→22:16)
[2021-08-09] MEDS: BENZONATATE 100 MG CAPSULE PO SCH ×3 (08:28→21:52)
[2021-08-09] MEDS: rOPINIRole HCL 2 MG TABLET PO SCH ×3 (08:29→21:52)
[2021-08-09] MEDS: FLUTICASONE/VILANTEROL 100/25MCG 14 PUFFS/INHALER INH SCH (08:29)
[2021-08-09] MEDS: CITALOPRAM 20 MG TAB PO SCH (08:29)
[2021-08-09] MEDS: FUROSEMIDE 40 MG TAB PO SCH (08:29)
[2021-08-09] MEDS: FOLIC ACID 1 MG TAB PO SCH (08:30)
[2021-08-09] MEDS: SPIRONOLACTONE 12.5 MG TAB PO SCH (08:31)
[2021-08-09] MEDS: guaiFENesin 600 MG TABCR PO SCH ×2 (08:32→21:53)
[2021-08-09] MEDS: DOCUSATE SODIUM 100 MG CAP PO SCH ×2 (08:32→21:53)
--- NOTE | 2021-08-09 10:23 | Hospitalist Progress Note ---
Date of Service August 09, 2021 Assessment & Plan (1) H/O mitral valve replacement with mechanical valve: (2) Nontraumatic intramuscular hematoma: Plan: 65 yo F w/ type 2 diabetes, currently not on any medications, chronic kidney disease stage III, hypothyroidism, hyperlipidemia, atrial fibrillation, tachybrady syndrome, history of syncope, status post loop recorder, chronic diastolic CHF, history of rheumatic heart disease, history of CAD, varicose veins of both legs, history of GERD, generalized osteoarthritis, restless legs syndrome, status post mechanical mitral valve replacement, history of TIA, history of recurrent falls, generalized anxiety disorder who was recently admitted 07/18-07/25 for shortness of breath and leg swelling improved with iv diuresis; also had EGD 07/24 for barium pill stuck in esophagus and was discharged on lovenox 60 bid along with coumadin because of subtherapeutic INR (h/o mechanical MVR) presented to the ED 08/02 with worsening left thigh pain for the past 2 days [employer]. She is being managed for the following: Admitting CT LLE 1. Acute intramuscular hemorrhage within the left iliacus, iliopsoas muscles and adductor muscles. Associated extraperitoneal hemorrhage. At least moderate intramuscular hemorrhage. Proximal extent of intramuscular hemorrhage not imaged on this exam. No active extravasation within visualized portions of the intramuscular hemorrhage. 2. Patent left common femoral and superficial femoral arteries. Intramuscular hematoma, non traumatic - CT reviewed as above- no active extravasation noted. No flank or abd tenderness to suspect Retroperitoneal bleed. - Hb at 10.1 at presentation, INR 2.7- received 1 mg of Vit K - Currently no compartment syndrome but will watch closely- (if so, will need urgent ortho evaluation and probably complete reversal of INR) - Trend H&H, transfuse as indicated --> Hb stable around 8.0, no erythema or increasing swelling. continue to monitor. INR 3.2. Pt has been on current dose of warfarin for long time per Pt. - PT/OT, likely DC to snf required. Pt denying any placement. 08/09 INR 7.1 - discussed w/ cardiology - hold coumadin, no vit. K Mechanical MV on coumadin Permanent Afib H/o embolic [place] and TIA Goal INR 3-3.5. Moving forward will avoid Lovenox or subcutaneous heparin bridges. On lopressor increased to 25 mg PO BID per cardio 08/09 INR 7.1 - discussed w/ cardiology - hold coumadin, no vit. K ? Melena: had multiple formed stools overnight, dark colored per RN, fobt +ve, pt on anticoagulation for Mechanical MV valve. NPO, GI consult, PPI IV BID. Await GI recs. Her left thigh bruise/left buttock bruise stable. transfuse for symptomatic anemia for Hb < 7.5 given cardiac history. Electrolytes abnormality: Monitor and replete electrolytes, maintain K greater than 4 and Mg greater than 2 Hyponatremia: Na 129, generally 130-133 at baseline. When on diet, increase protein content in diet, FR, and low sodium diet, continue to monitor. Consider Nephro if with worsening s/s. Leucocytosis:WBC elevated at admission, trended up to 16.75K, trending down, afebrile, procal minimally elevated but trended down. Likely reactive to hematoma. 08/05 CXR w/ no acute finding. UA reviewed, UCx coag negative staph not saprophytic, Bl Cx pending Staph UTI: 08/05 UCx +ve for Staph spp. Vanco 08/07. f/u final C/s. Pt not on catheter, S. aureusbacteriuria in the absence of a urinary catheter may be an indicator ofS. aureusbacteremia, hence f/u Bl Cx reports as well. Possible asthmatic bronchitis- started on breo and combivent prn by pulm during recent admission, continue w/ same. CKD3- Cr stable at baseline of around 1.4-1.6 Chronic diastolic CHF- on lasix and aldactone- resume as indicated. Lasix (per cardio) upon DC: 40mg 3 days/wk and 80 mg 4 days/wk. BMP in 1 wk upon DC. BOBBY- on celexa DM-2- A1 7. not on insulin, SSI prn GERD- on PPI Dispo- PCU tele, expect dc in next 2-3 days if placement. Will need hemoglobin and INR to stabilize before discharging. Med telemetry. DVT ppx- coumadin Full Code. Admission and Anticipated Discharge Date Admission Date: August 02, 2021 Subjective Patient seen in follow-up of nontraumatic intramuscular hematoma of left thigh. Hx of mechanical mitral valve. Supratherapeutic INR. Patient is sitting up in bed, on room air, in NAD, no acute events overnight. Pt denies any chest pain, shortness of breath, palpitations. Reports that her left leg is feeling better, she has more feeling in it now. Yesterday, RN was concerned for dark stool. FOBT was positive. GI consulted. Review of Systems Review of Systems: All systems reviewed & are unremarkable except as noted in Subjective Physical Exam Physical Exam: GENERAL: Alert and oriented x3. NAD, on RA. HEENT: No pallor, no icterus. EOMI. Pupils equal, round and reactive to light. Oral mucosa moist. NECK: No JVD, no neck masses. HEART: S1 and S2 heard. irregular rate and rhythm. No murmur, no gallop. RESPIRATORY SYSTEM: Normal AP diameter. No accessory muscle use. CTA. ABDOMEN: Soft, bowel sounds present, nontender, no distention. NEURO: No facial droop. Speech is clear. Obeys simple commands. Moves extremities. EXTREMITIES: trace ble edema, no erythema seen. Lt swelling improving, bruise medial left thigh and left buttock/low back stable, No erythema. Tenderness/numbness and ROM improving. Distal NV status normal. Results & Data Results & Data ([facility]) Vital Signs (Past 12 Hours) Vital Signs Temp Pulse Resp BP Pulse Ox 08/09/21 07:33 36.3 C L 78 20 105/58 L 98 08/09/21 06:59 82 18 98 08/09/21 04:37 37.0 C 81 16 95/57 L 97 08/08/21 23:56 36.7 C 76 16 97/56 L 95 Laboratory Results 08/09/21 08/09/21 08/09/21 Range/Units 05:38 05:38 05:38 WBC 7.79 (4.8-10.8) K/uL RBC 3.01 L (4.2-5.4) M/uL Hgb 8.1 L (12.0-16.0) g/dL Hct 25.7 L (37-47) % MCV 85.4 (80-100) fL MCH 26.9 (25-34) pg MCHC 31.5 L (32-36) g/dL RDW Std Deviation 52.1 H (36.4-46.3) fL RDW Coeff of Courtney 17.1 H (11.5-14.5) % Plt Count 254 (130-400) K/uL MPV 9.8 (7.4-10.4) fL PT 68.2 H (9.0-12.0) Seconds INR 7.1 H* (0.9-1.1) Sodium 132 L (136-145) mmol/L Potassium 3.8 (3.5-5.1) mmol/L Chloride 96 L (98-107) mmol/L Carbon Dioxide 30 (21-32) mmol/L Anion Gap 6 (3-11) BUN 21 (6-23) mg/dl Creatinine 1.39 H (0.6-1.2) mg/dl Est Cr Clr Drug Dosing 30.3 ml/min Est GFR ( Amer) 45.0 ml/min Est GFR (Non-Af Amer) 38.8 ml/min BUN/Creatinine Ratio 15.1 (10-20) Glucose 83 (70-99(Fasting)) mg/dl POC Glucose (70-99) mg/dl Calcium 9.5 (8.5-10.1) mg/dl Phosphorus 3.1 (2.5-4.9) mg/dl Magnesium 2.1 (1.7-2.4) mg/dl Stool Occult Bld Scrn (Negative) Vancomycin Trough (10-20) mcg/ml 08/09/21 08/09/21 08/09/21 Range/Units 05:38 05:33 00:24 WBC (4.8-10.8) K/uL RBC (4.2-5.4) M/uL Hgb (12.0-16.0) g/dL Hct (37-47) % MCV (80-100) fL MCH (25-34) pg MCHC (32-36) g/dL RDW Std Deviation (36.4-46.3) fL RDW Coeff of Courtney (11.5-14.5) % Plt Count (130-400) K/uL MPV (7.4-10.4) fL PT (9.0-12.0) Seconds INR (0.9-1.1) Sodium (136-145) mmol/L Potassium (3.5-5.1) mmol/L Chloride (98-107) mmol/L Carbon Dioxide (21-32) mmol/L Anion Gap (3-11) BUN (6-23) mg/dl Creatinine (0.6-1.2) mg/dl Est Cr Clr Drug Dosing ml/min Est GFR ( Amer) ml/min Est GFR (Non-Af Amer) ml/min BUN/Creatinine Ratio (10-20) Glucose (70-99(Fasting)) mg/dl POC Glucose 90 138 H (70-99) mg/dl Calcium (8.5-10.1) mg/dl Phosphorus (2.5-4.9) mg/dl Magnesium (1.7-2.4) mg/dl Stool Occult Bld Scrn (Negative) Vancomycin Trough 13.3 (10-20) mcg/ml 08/08/21 08/08/21 08/08/21 Range/Units 22:39 17:55 14:16 WBC (4.8-10.8) K/uL RBC (4.2-5.4) M/uL Hgb 7.6 L 8.3 L (12.0-16.0) g/dL Hct 23.8 L 26.5 L (37-47) % MCV (80-100) fL MCH (25-34) pg MCHC (32-36) g/dL RDW Std Deviation (36.4-46.3) fL RDW Coeff of Courtney (11.5-14.5) % Plt Count (130-400) K/uL MPV (7.4-10.4) fL PT (9.0-12.0) Seconds INR (0.9-1.1) Sodium (136-145) mmol/L Potassium (3.5-5.1) mmol/L Chloride (98-107) mmol/L Carbon Dioxide (21-32) mmol/L Anion Gap (3-11) BUN (6-23) mg/dl Creatinine (0.6-1.2) mg/dl Est Cr Clr Drug Dosing ml/min Est GFR ( Amer) ml/min Est GFR (Non-Af Amer) ml/min BUN/Creatinine Ratio (10-20) Glucose (70-99(Fasting)) mg/dl POC Glucose 111 H (70-99) mg/dl Calcium (8.5-10.1) mg/dl Phosphorus (2.5-4.9) mg/dl Magnesium (1.7-2.4) mg/dl Stool Occult Bld Scrn (Negative) Vancomycin Trough (10-20) mcg/ml 08/08/21 08/08/21 Range/Units 11:39 10:50 WBC (4.8-10.8) K/uL RBC (4.2-5.4) M/uL Hgb (12.0-16.0) g/dL Hct (37-47) % MCV (80-100) fL MCH (25-34) pg MCHC (32-36) g/dL RDW Std Deviation (36.4-46.3) fL RDW Coeff of Courtney (11.5-14.5) % Plt Count (130-400) K/uL MPV (7.4-10.4) fL PT (9.0-12.0) Seconds INR (0.9-1.1) Sodium (136-145) mmol/L Potassium (3.5-5.1) mmol/L Chloride (98-107) mmol/L Carbon Dioxide (21-32) mmol/L Anion Gap (3-11) BUN (6-23) mg/dl Creatinine (0.6-1.2) mg/dl Est Cr Clr Drug Dosing ml/min Est GFR ( Amer) ml/min Est GFR (Non-Af Amer) ml/min BUN/Creatinine Ratio (10-20) Glucose (70-99(Fasting)) mg/dl POC Glucose 146 H (70-99) mg/dl Calcium (8.5-10.1) mg/dl Phosphorus (2.5-4.9) mg/dl Magnesium (1.7-2.4) mg/dl Stool Occult Bld Scrn Positive A (Negative) Vancomycin Trough (10-20) mcg/ml Medications Administered Current Inpatient Medications Acetaminophen (Acetaminophen 325 Mg Tab) 650 mg PO Q6H PRN PRN Reason: MILD Pain 1,2,3 Stop: 09/01/21 20:35 Albuterol (Albuterol Hfa 8 Gm Inhaler (Combivent Respimat P&T Subs)) 1 puffs INH Q6H PRN PRN Reason: SOB or wheezing Stop: 09/01/21 21:27 Albuterol (Albut/Ipratrop 3mg/0.5mg Neb 3 Ml Vial) 3 ml INH QIDR PRISCILA; Protocol Stop: 09/02/21 10:59 Last Admin: 08/09/21 10:20 Dose: 3 ml Documented by: Azelastine HCl (Azelastine Hcl 0.1% Nasal 200 Sprays/27,400 Mcg Btl) 2 sprays NA [facility] Stop: 09/02/21 08:59 Last Admin: 08/09/21 08:28 Dose: 2 sprays Documented by: Benzonatate (Benzonatate 100 Mg Capsule) 100 mg PO TID [facility] Stop: 09/05/21 20:59 Last Admin: 08/09/21 08:28 Dose: 100 mg Documented by: Citalopram Hydrobromide (Citalopram 20 Mg Tab) 10 mg PO DAILY [facility] Stop: 09/02/21 08:59 Last Admin: 08/09/21 08:29 Dose: 10 mg Documented by: Dextrose (Dextrose 50% 50 Ml Syringe) 25 - 50 ml IV UD PRN; Protocol PRN Reason: Hypoglycemia Protocol Stop: 09/01/21 20:35 Docusate Sodium (Docusate Sodium 100 Mg Cap) 100 mg PO BID [facility] Stop: 09/05/21 15:39 Last Admin: 08/09/21 08:32 Dose: Not Given Documented by: Fluticasone/Vilanterol (Fluticasone/Vilanterol 100/25mcg 14 Puffs/Inhaler) 1 puffs INH DAILY [facility] Stop: 09/02/21 08:59 Last Admin: 08/09/21 08:29 Dose: 1 puffs Documented by: Folic Acid (Folic Acid 1 Mg Tab) 1 mg PO QAM [facility] Stop: 09/02/21 08:59 Last Admin: 08/09/21 08:30 Dose: 1 mg Documented by: Furosemide (Furosemide 40 Mg Tab) 40 mg PO QAM [facility] Stop: 09/03/21 09:14 Last Admin: 08/09/21 08:29 Dose: 40 mg Documented by: Glucagon (Glucagon For Inj 1 Mg Vial) 1 mg SQ UD PRN; Protocol PRN Reason: Hypoglycemia Protocol Stop: 09/01/21 20:35 Glucose (Glucose 10 Tabs/Tube) 4 - 8 tabs PO UD PRN; Protocol PRN Reason: Hypoglycemia Protocol Stop: 09/01/21 20:35 Glucose (Glucose 40% Gel 15 Gm Tube) 15 - 30 gm PO UD PRN; Protocol PRN Reason: Hypoglycemia Protocol Stop: 09/01/21 20:35 Guaifenesin (Guaifenesin 600 Mg Tabcr) 600 mg PO Q12 PRISCILA Stop: 09/01/21 20:59 Last Admin: 08/09/21 08:32 Dose: Not Given Documented by: Hydromorphone HCl (Hydromorphone Inj 0.5 Mg/0.5 Ml Syr) 0.5 mg IV Q3H PRN PRN Reason: Pain Stop: 08/16/21 21:50 Last Admin: 08/09/21 04:32 Dose: 0.5 mg Documented by: Vancomycin HCl 750 mg/ Sodium (Chloride) 265 mls @ 200 mls/hr IV Q24H PRISCILA Stop: 08/18/21 05:59 Last Infusion: 08/09/21 08:03 Dose: Infused Documented by: Pantoprazole Sodium 40 mg/ (Syringe) 10 mls @ 5 mls/min IV BID PRISCILA Stop: 09/07/21 14:44 Last Admin: 08/09/21 08:26 Dose: 5 mls/min Documented by: Insulin Aspart (Insulin Aspart Per Unit) 0 units SC Q6 PRISCILA Stop: 09/01/21 20:59 Last Admin: 08/09/21 05:38 Dose: Not Given Documented by: Ipratropium [place] (Ipratropium Hfa Inhaler (Combivent Respimat P&T Subs)) 1 puffs INH Q6H PRN PRN Reason: SOB or wheezing Stop: 09/01/21 21:27 Levothyroxine Sodium (Levothyroxine Sodium 100 Mcg Tablet) 100 mcg PO DAILYBB [facility] Stop: 09/02/21 06:29 Last Admin: 08/09/21 05:39 Dose: 100 mcg Documented by: Magnesium Hydroxide (Magnesium Hydroxide Susp 30 Ml Udc) 5 ml PO DAILY PRN PRN Reason: Constipation Stop: 09/01/21 20:35 Melatonin (Melatonin 3 Mg Tab) 6 mg PO HS [facility] Stop: 08/09/21 21:01 Last Admin: 08/08/21 20:52 Dose: 6 mg Documented by: Metoclopramide HCl (Metoclopramide Hcl 10 Mg Tablet) 10 mg PO DAILY PRN PRN Reason: Nausea Stop: 09/01/21 20:35 Last Admin: 08/05/21 17:48 Dose: 10 mg Documented by: Metoprolol Tartrate (Metoprolol Tartrate 25 Mg Tab) 25 mg PO BID [facility] Stop: 09/03/21 08:59 Last Admin: 08/09/21 08:26 Dose: 25 mg Documented by: Miscellaneous (Carbohydrates For Hypoglycemia ) 15 - 30 gm PO UD PRN PRN Reason: Hypoglycemia Protocol Stop: 09/01/21 20:35 Miscellaneous Information (Vancomycin Consult Active) 1 ea N/A UD PRN PRN Reason: Consult Stop: 09/06/21 17:00 Nitroglycerin (Nitroglycerin Sl 0.4 Mg/Tab Tab) 0.4 mg SL Q5M PRN PRN Reason: Chest Pain Stop: 09/01/21 20:35 Pantoprazole Sodium (Pantoprazole 40 Mg Tab) 40 mg PO PM PRISCILA Stop: 09/01/21 20:59 Last Admin: 08/07/21 20:46 Dose: 40 mg Documented by: Ropinirole HCl (Ropinirole Hcl 2 Mg Tablet) 2 mg PO TID PRISCILA Stop: 09/01/21 20:59 Last Admin: 08/09/21 08:29 Dose: 2 mg Documented by: Rosuvastatin Calcium (Rosuvastatin Calcium 20 Mg Tab) 20 mg PO HS PRISCILA Stop: 09/01/21 20:59 Last Admin: 08/08/21 20:53 Dose: 20 mg Documented by: Sennosides (Senna 8.6 Mg Tab) 17.2 mg PO HS PRN PRN Reason: Constipation Last Admin: 08/05/21 09:53 Dose: 17.2 mg Documented by: Spironolactone (Spironolactone 12.5 Mg Tab) 12.5 mg PO DAILY PRISCILA Stop: 09/02/21 08:59 Last Admin: 08/09/21 08:31 Dose: 12.5 mg Documented by: Tramadol HCl (Tramadol Hcl 50 Mg Tablet) 50 mg PO TID PRN PRN Reason: MOD-SEVERE Pain4,5,6,7,8,9,10 Stop: 09/01/21 20:35 Last Admin: 08/08/21 11:43 Dose: 50 mg Documented by: Warfarin Sodium (Warfarin Sod 5 Mg Tab) 5 mg PO DAILY@1600 [facility] Stop: 09/02/21 15:59 Last Admin: 08/07/21 17:00 Dose: 5 mg Documented by:
--- NOTE | 2021-08-09 11:03 | Gastrointestinal Consultation ---
Date of Consultation August 09, 2021 Assessment & Plan (1) Occult blood positive stool: (2) Elevated INR: No evidence of significant GI bleed (normal BUN, brown BMs, Hb stable) and pt underwent an EGD to the 2nd portion of the duodenum on 07/24/21 w/o any mucosal defects/lesions. Any drop in Hb is much more likely to be from the hematoma. Would defer repeat EGD. GI will sign off. Supervising Physician Co-Signing Physician Notes No signs of gi bleed, normal bun, normal hgb Recent egd within the last 2 weeks that was normal. She has been admitted since 08/02 with leg pain though to be from a leg hematoma- likely anemia and fluctuation in hgb related to that. She can take a ppi once daily. Agree with further plan of care as above. History of Present Illness Reason for Consultation: melena, needs anticoagulation for Mechanical MV Requesting Physician: Dr. Lara Attending Physician: Willard Goldstein MD History of Present Illness Ms. Abdi Bowling is a 66 yr old female pt of Dr. Blanco w a hx of DM2, CKD3, Hypothyroid, hyperlipidemia, A-fib Tachy/sammi, CHF, mechanical mitral valve replacement (on wafarin, INR 2.7 on arrival ->7.1 today), TIA, frequent falls (though tells me she hasn't fallen since April), who presented to the ED last week for a large hematoma that was causing leg numbness. She reports passing brown, formed BMs. Occult stool on 08/08 was (+). She denies any black/loose BMs. Allergies Allergy/AdvReac Type Severity Reaction Status Date / Time hydroxyzine Allergy Severe DYSTONIA Verified 08/02/21 15:44 prochlorperazine Allergy Severe NUCHAL Verified 08/02/21 15:44 DYSTONIA promethazine Allergy Severe NUCHAL Verified 08/02/21 15:44 DYSTONIA oxycodone Allergy Intermediate Numbness Verified 08/02/21 15:44 PERRY Inhibitors AdvReac Intermediate COUGH Verified 08/02/21 15:44 lisinopril AdvReac Intermediate Cough Verified 08/02/21 15:44 metformin AdvReac Intermediate DIARRHEA Verified 08/02/21 15:44 parsley AdvReac Intermediate AGITATION Verified 08/02/21 15:44 tetracycline AdvReac Intermediate DYSPEPSIA Verified 08/02/21 15:44 gabapentin AdvReac Drowsy Verified 08/02/21 15:44 NAUSEA MEDICINES Allergy Unknown SEE NOTE Uncoded 08/02/21 15:44 BELOW Home Medications Medication Instructions Recorded Confirmed Type cholecalciferol (vitamin D3) 25 1,000 unit PO QAM 12/05/17 08/02/21 History mcg (1,000 unit) capsule (Vitamin D3) nitroglycerin 0.4 mg sublingual 0.4 mg SUBLINGUAL DIRECTED PRN 12/05/17 08/02/21 History tablet (Nitrostat) omeprazole 20 mg capsule,delayed 20 mg PO PM 12/05/17 08/02/21 History release levothyroxine 100 mcg tablet 100 mcg PO DAILYBB 05/18/18 08/02/21 History folic acid 1 mg tablet 1 mg PO QAM #30 tab 05/21/18 08/02/21 Rx ropinirole 2 mg tablet 2 mg PO TID 10/08/18 08/02/21 History acetaminophen 500 mg tablet 500 mg PO Q6H PRN 12/31/19 08/02/21 History (Tylenol Extra Strength) magnesium hydroxide 400 mg/5 mL 5 ml PO DAILY PRN 12/31/19 08/02/21 History oral suspension (Milk of Magnesia) spironolactone 25 mg tablet 12.5 mg PO DAILY 12/31/19 08/02/21 History rosuvastatin 20 mg tablet 20 mg PO HS 10/15/20 08/02/21 History ascorbic acid (vitamin C) 500 mg 500 mg PO DAILY 03/31/21 08/02/21 History tablet (Vitamin C) metoprolol tartrate 25 mg tablet 12.5 mg PO BID #30 tab 04/09/21 08/02/21 Rx benzonatate 100 mg capsule 100 mg PO TID 07/18/21 08/02/21 History bisacodyl 10 mg rectal suppository 10 mg SD DAILY 07/18/21 08/02/21 History citalopram 10 mg tablet 10 mg PO DAILY 07/18/21 08/02/21 History magnesium glycinate 100 mg tablet 0 mg PO DAILY 07/18/21 08/02/21 History metoclopramide HCl 10 mg tablet 10 mg PO DAILY PRN 07/18/21 08/02/21 History sennosides 17.2 mg tablet 17.2 mg PO HS PRN 07/18/21 08/02/21 History tramadol 50 mg tablet 50 mg PO TID PRN 07/18/21 08/02/21 History warfarin 5 mg tablet 5 mg PO DIRECTED 07/18/21 08/02/21 History fluticasone furoate 100 1 ea INHALATION DAILY 30 Days #60 07/25/21 08/02/21 Rx mcg-vilanterol 25 mcg/dose ea inhalation powder (Breo Ellipta) furosemide 80 mg tablet 80 mg PO QAM #30 tab 07/25/21 08/02/21 Rx guaifenesin 600 mg tablet, 600 mg PO Q12 #30 tab 07/25/21 08/02/21 Rx extended release 12 hr (Mucinex) ipratropium 20 mcg-albuterol 100 1 puff INHALATION Q6H PRN #4 g 07/25/21 08/02/21 Rx mcg/actuation mist for inhalation (Combivent Respimat) albuterol sulfate 90 mcg/actuation 2 puff INHALATION Q4 PRN 08/02/21 08/02/21 History aerosol inhaler azelastine 137 mcg (0.1 %) nasal 2 spray INTRANASAL [facility] 08/02/21 08/02/21 History spray aerosol ipratropium 0.5 mg-albuterol 3 mg 3 ml INHALATION QID 08/02/21 08/02/21 History (2.5 mg base)/3 mL nebulization soln Patient History Medical History A-fib Anemia chronic; baseline hgb 9-10 range per chart review Anxiety CKD (chronic kidney disease), stage III Diabetes diet controlled Encounter for pre-operative examination GERD (gastroesophageal reflux disease) controlled History of blood transfusion autologous s/p MVR (1993), 09/2018 (post-op) HTN (hypertension) Hx of myocardial infarction 2000, medical management Hyperlipidemia Hypothyroidism Migraines 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 migraine vs. stress related)-- plavix since discontinued Surgical History H/O radioactive iodine thyroid ablation H/O: hysterectomy History of cardiac cath 2000= NO STENTS History of colonoscopy History of tonsillectomy and adenoidectomy History of total left knee replacement Hx of appendectomy Hx of cholecystectomy Hx of mitral valve replacement 1993 (rheumatic valvular disease) Hx of tubal ligation Family History Uncle , of [place] in his 40s Coronary heart disease Social History Smoking Status: Never smoker Second Hand Exposure: Yes ( CHILD); Do You Dip or Chew Tobacco: No; Hx Alcohol Use: Yes Alcohol type: wine Hx Substance Use: No Preferred Language: Czech Communication Ability: 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 Beliefs That Will Affect Care: None marital status: Single Current Living Situation: Alone Current Living Situation Comment: takes care of mother current occupational status: disabled How many Children do You have: 0 Other Information That Helps Us Care for You: No Feels Safe at Home: Yes Assistive Devices: Cane and Walker Assistive Devices Comment: DENTURES WITH PT Review of Systems Review of Systems: ROS: Gen: Denies weakness, fevers, weight loss Eyes: No eye redness, or pain, no recent vision changes Resp: No SOB, no cough Cardio: + palpitations/irregular beats, no chest pain GI: No abdominal pain, no nausea/vomiting, no melena or hematochezia : Denies pain on urination Skin: No jaundice, itching or new rashes Physical Exam Constitutional: well developed, + thin and cooperative Eyes: PERRL, conjunctivae normal, anicteric sclerae ENMT: external ear and nose normal, oropharynx normal Neck: trachea midline, no thyromegaly Respiratory: normal respiratory effort and able to speak in complete sentences; no respiratory distress, no labored breathing, does not use accessory muscles and no cough Cardiovascular: RRR, no murmur, no edema Gastrointestinal (Abdomen): normal bowel sounds, soft, nontender, no hepatosplenomegaly Inspection/Auscultation: abdomen normal to inspection and normal bowel sounds; abdomen not distended and no abdominal edema Skin: no rashes, warm and dry normal turgor Neurologic: PERRL, EOMI, accommodation nl, no face palsy, no dysarthria awake; not confused Psychiatric: A+Ox3, euthymic affect Lymphatic: no cervical or axillary lymphadenopathy Results & Data ([facility]) Vital Signs (Past 12 Hours) Vital Signs Temp Pulse Resp BP Pulse Ox 08/09/21 10:21 60 18 94 08/09/21 07:33 36.3 C L 78 20 105/58 L 98 08/09/21 06:59 82 18 98 08/09/21 04:37 37.0 C 81 16 95/57 L 97 08/08/21 23:56 36.7 C 76 16 97/56 L 95 Laboratory Results WBC 7, Hb 8, Hct 25, Plts 254, PT 68, INR 7, Na 132, K 3.8, Cl 96, OC2 30, BUN 21, Cr 1.39, glucose 83.
[2021-08-09] MEDS ORDERED: POTASSIUM CHLORIDE PWD 20 MEQ PACK PO ONE (11:31)
[2021-08-09] MEDS: traMADol HCL 50 MG TABLET PO PRN (13:46)
[2021-08-09] MEDS: METOCLOPRAMIDE HCL 10 MG TABLET PO PRN (15:25)
[2021-08-09 21:00] LABS: Hematocrit (blood only) 26.2 % (37-47); Hemoglobin 8.2 g/dL (12.0-16.0)
[2021-08-09 21:12] LABS: INR 8.9 (0.9-1.1)
[2021-08-09] MEDS ORDERED: PHYTONADIONE 5 MG TAB PO STA (21:20)
[2021-08-09] MEDS ORDERED: INSULIN ASPART PER UNIT SC SCH (21:45)
[2021-08-09] MEDS: ROSUVASTATIN CALCIUM 20 MG TAB PO SCH (21:52)
[2021-08-09] MEDS: DOXYCYCLINE HYCLATE 100 MG CAP PO SCH (21:52)
[2021-08-09] MEDS: MELATONIN 3 MG TAB PO SCH (21:53)
[2021-08-10] MEDS: INSULIN ASPART PER UNIT SC SCH ×5 (00:03→21:05)
[2021-08-10] MEDS: traMADol HCL 50 MG TABLET PO PRN ×2 (01:54→22:23)
[2021-08-10] MEDS: LEVOTHYROXINE SODIUM 100 MCG TABLET PO SCH (06:21)
[2021-08-10] MEDS: ALBUT/IPRATROP 3MG/0.5MG NEB 3 ML VIAL INH SCH ×4 (07:09→20:04)
[2021-08-10 07:39] LABS: Hematocrit (blood only) 25.9 % (37-47); Hemoglobin 8.2 g/dL (12.0-16.0); Mean Corpuscular Hemoglobin 26.6 pg (25-34); Mean Corpuscular Hgb Conc 31.7 g/dL (32-36); Mean Corpuscular Volume 84.1 fL (80-100); Mean Platelet Volume 9.6 fL (7.4-10.4); Platelet Count 271 K/uL (130-400); RDW Coefficient of Variation 17.3 % (11.5-14.5); RDW Standard Deviation 51.9 fL (36.4-46.3); Red Blood Count 3.08 M/uL (4.2-5.4); White Blood Count 7.88 K/uL (4.8-10.8)
[2021-08-10 07:52] LABS: INR 2.9 (0.9-1.1); Prothrombin Time 29.2 Seconds (9.0-12.0)
[2021-08-10 07:57] LABS: BUN Creatinine Ratio 20.1 (10-20); Calcium 9.5 mg/dl (8.5-10.1); Creatinine Clr Calc Pharmacy 31.7 ml/min; Est GFR (African American) 47.1 ml/min; Est GFR (Non-African American) 40.6 ml/min; Phosphorus 2.8 mg/dl (2.5-4.9); Potassium 3.8 mmol/L (3.5-5.1)
[2021-08-10] MEDS: DOCUSATE SODIUM 100 MG CAP PO SCH ×2 (08:31→21:07)
[2021-08-10] MEDS: CITALOPRAM 20 MG TAB PO SCH (08:32)
[2021-08-10] MEDS: FUROSEMIDE 40 MG TAB PO SCH (08:32)
[2021-08-10] MEDS: rOPINIRole HCL 2 MG TABLET PO SCH ×3 (08:32→21:10)
[2021-08-10] MEDS: guaiFENesin 600 MG TABCR PO SCH ×2 (08:32→21:08)
[2021-08-10] MEDS: FOLIC ACID 1 MG TAB PO SCH (08:32)
[2021-08-10] MEDS: DOXYCYCLINE HYCLATE 100 MG CAP PO SCH ×2 (08:33→21:08)
[2021-08-10] MEDS: SPIRONOLACTONE 12.5 MG TAB PO SCH (08:33)
[2021-08-10] MEDS: METOPROLOL TARTRATE 25 MG TAB PO SCH ×2 (08:33→21:10)
[2021-08-10] MEDS: BENZONATATE 100 MG CAPSULE PO SCH ×3 (08:34→21:07)
[2021-08-10] MEDS: PANTOprazole 40 MG in SYRINGE 0 ML IV SCH ×2 (08:35→21:10)
[2021-08-10] MEDS: AZELASTINE HCL 0.1% NASAL 200 SPRAYS/27,400 MCG BTL SCH ×2 (08:35→21:06)
[2021-08-10] MEDS: FLUTICASONE/VILANTEROL 100/25MCG 14 PUFFS/INHALER INH SCH (08:36)
--- NOTE | 2021-08-10 10:33 | Hospitalist Progress Note ---
Date of Service August 10, 2021 Assessment & Plan (1) H/O mitral valve replacement with mechanical valve: (2) Nontraumatic intramuscular hematoma: Plan: 65 yo F w/ type 2 diabetes, currently not on any medications, chronic kidney disease stage III, hypothyroidism, hyperlipidemia, atrial fibrillation, tachybrady syndrome, history of syncope, status post loop recorder, chronic diastolic CHF, history of rheumatic heart disease, history of CAD, varicose veins of both legs, history of GERD, generalized osteoarthritis, restless legs syndrome, status post mechanical mitral valve replacement, history of TIA, history of recurrent falls, generalized anxiety disorder who was recently admitted 07/18-07/25 for shortness of breath and leg swelling improved with iv diuresis; also had EGD 07/24 for barium pill stuck in esophagus and was discharged on lovenox 60 bid along with coumadin because of subtherapeutic INR (h/o mechanical MVR) presented to the ED 08/02 with worsening left thigh pain for the past 2 days [employer]. She is being managed for the following: Admitting CT LLE 1. Acute intramuscular hemorrhage within the left iliacus, iliopsoas muscles and adductor muscles. Associated extraperitoneal hemorrhage. At least moderate intramuscular hemorrhage. Proximal extent of intramuscular hemorrhage not imaged on this exam. No active extravasation within visualized portions of the intramuscular hemorrhage. 2. Patent left common femoral and superficial femoral arteries. Intramuscular hematoma, non traumatic - CT reviewed as above- no active extravasation noted. No flank or abd tenderness to suspect Retroperitoneal bleed. - Hb at 10.1 at presentation, INR 2.7- received 1 mg of Vit K - Currently no compartment syndrome but will watch closely- (if so, will need urgent ortho evaluation and probably complete reversal of INR) - Trend H&H, transfuse as indicated --> Hb stable around 8.0, no erythema or increasing swelling. continue to monitor. INR. Pt has been on current dose of warfarin for long time per Pt. - PT/OT, likely DC to snf required. Pt declining any placement. 08/09 INR 7.1 - discussed w/ cardiology - hold coumadin, no vit. K 08/10 - INR 2.9 , however last night INR was 8.9 and vit. K given by night physician Mechanical MV on coumadin Permanent Afib H/o embolic UT and TIA Goal INR 3-3.5. Moving forward will avoid Lovenox or subcutaneous heparin bridges. On lopressor increased to 25 mg PO BID per cardio 08/09 INR 7.1 - discussed w/ cardiology - hold coumadin, no vit. K ? Melena: had multiple formed stools overnight, dark colored per RN, fobt +ve, pt on anticoagulation for Mechanical MV valve. GI consulted - no need for endoscopy, Hgb stable, stools brown. Had endoscopy recently, pls see full detail in their report. transfuse for symptomatic anemia for Hb < 7.5 given cardiac history. Electrolytes abnormality: Monitor and replete electrolytes, maintain K greater than 4 and Mg greater than 2 Hyponatremia: Na 129, generally 130-133 at baseline. When on diet, increase protein content in diet, FR, and low sodium diet, continue to monitor. Consider Nephro if with worsening s/s. Leucocytosis:WBC elevated at admission, trended up to 16.75K, trending down, afebrile, procal minimally elevated but trended down. Likely reactive to hematoma. 08/05 CXR w/ no acute finding. UA reviewed, UCx coag negative staph not saprophytic, Bl Cx negative Staph UTI: 08/05 UCx +ve for coag negative staph not saprophytic, initially Vanco 08/07, now c/w w/ doxy Possible asthmatic bronchitis- started on breo and combivent prn by pulm during recent admission, continue w/ same. CKD3- Cr stable at baseline of around 1.4-1.6 Chronic diastolic CHF- on lasix and aldactone- resume as indicated. Lasix (per cardio) upon DC: 40mg 3 days/wk and 80 mg 4 days/wk. BMP in 1 wk upon DC. BOBBY- on celexa DM-2- A1 7. not on insulin, SSI prn GERD- on PPI Dispo- PCU tele, expect dc in next 2-3 days if placement. Will need hemoglobin and INR to stabilize before discharging. Med telemetry. DVT ppx- coumadin Full Code. Admission and Anticipated Discharge Date Admission Date: August 02, 2021 Subjective Patient seen in follow-up of nontraumatic intramuscular hematoma of left thigh. Hx of mechanical mitral valve. Supratherapeutic INR, now therapeutic, received vit.K overnight. Patient is sitting up in bed, on room air, in NAD. Pt denies any chest pain, shortness of breath, palpitations. Reports that her left leg is feeling better, she has more feeling in it now. Review of Systems Review of Systems: All systems reviewed & are unremarkable except as noted in Subjective Physical Exam Physical Exam: GENERAL: Alert and oriented x3. NAD, on RA. HEENT: No pallor, no icterus. EOMI. Pupils equal, round and reactive to light. Oral mucosa moist. NECK: No JVD, no neck masses. HEART: S1 and S2 heard. irregular rate and rhythm. No murmur, no gallop. RESPIRATORY SYSTEM: Normal AP diameter. No accessory muscle use. CTA. ABDOMEN: Soft, bowel sounds present, nontender, no distention. NEURO: No facial droop. Speech is clear. Obeys simple commands. Moves extremities. EXTREMITIES: trace ble edema, no erythema seen. Lt swelling improving, bruise medial left thigh and left buttock/low back stable, No erythema. Tenderness/numbness and ROM improving. Distal NV status normal. Results & Data Results & Data ([facility]) Vital Signs (Past 12 Hours) Vital Signs Temp Pulse Pulse Resp BP Pulse Ox 08/10/21 08:30 119 H 123/67 08/10/21 07:36 36.7 C 84 18 96/60 L 94 08/10/21 07:17 87 18 93 08/10/21 07:00 87 08/10/21 05:48 103 H 08/10/21 03:58 36.8 C 91 H 16 118/67 98 08/09/21 23:17 36.4 C L 86 18 96/54 L 97 Laboratory Results 08/10/21 08/10/21 08/10/21 Range/Units 07:39 07:04 07:04 WBC (4.8-10.8) K/uL RBC (4.2-5.4) M/uL Hgb (12.0-16.0) g/dL Hct (37-47) % MCV (80-100) fL MCH (25-34) pg MCHC (32-36) g/dL RDW Std Deviation (36.4-46.3) fL RDW Coeff of Courtney (11.5-14.5) % Plt Count (130-400) K/uL MPV (7.4-10.4) fL PT 29.2 H (9.0-12.0) Seconds INR 2.9 H (0.9-1.1) Sodium 132 L (136-145) mmol/L Potassium 3.8 (3.5-5.1) mmol/L Chloride 97 L (98-107) mmol/L Carbon Dioxide 31 (21-32) mmol/L Anion Gap 4 (3-11) BUN 27 H (6-23) mg/dl Creatinine 1.34 H (0.6-1.2) mg/dl Est Cr Clr Drug Dosing 31.7 ml/min Est GFR ( Amer) 47.1 ml/min Est GFR (Non-Af Amer) 40.6 ml/min BUN/Creatinine Ratio 20.1 H (10-20) Glucose 105 H (70-99(Fasting)) mg/dl POC Glucose 131 H (70-99) mg/dl Calcium 9.5 (8.5-10.1) mg/dl Phosphorus 2.8 (2.5-4.9) mg/dl Magnesium 2.0 (1.7-2.4) mg/dl 08/10/21 08/10/21 08/10/21 Range/Units 07:04 05:59 00:54 WBC 7.88 (4.8-10.8) K/uL RBC 3.08 L (4.2-5.4) M/uL Hgb 8.2 L (12.0-16.0) g/dL Hct 25.9 L (37-47) % MCV 84.1 (80-100) fL MCH 26.6 (25-34) pg MCHC 31.7 L (32-36) g/dL RDW Std Deviation 51.9 H (36.4-46.3) fL RDW Coeff of Courtney 17.3 H (11.5-14.5) % Plt Count 271 (130-400) K/uL MPV 9.6 (7.4-10.4) fL PT (9.0-12.0) Seconds INR (0.9-1.1) Sodium (136-145) mmol/L Potassium (3.5-5.1) mmol/L Chloride (98-107) mmol/L Carbon Dioxide (21-32) mmol/L Anion Gap (3-11) BUN (6-23) mg/dl Creatinine (0.6-1.2) mg/dl Est Cr Clr Drug Dosing ml/min Est GFR ( Amer) ml/min Est GFR (Non-Af Amer) ml/min BUN/Creatinine Ratio (10-20) Glucose (70-99(Fasting)) mg/dl POC Glucose 108 H 128 H (70-99) mg/dl Calcium (8.5-10.1) mg/dl Phosphorus (2.5-4.9) mg/dl Magnesium (1.7-2.4) mg/dl 08/09/21 08/09/21 08/09/21 Range/Units 23:53 20:41 20:09 WBC (4.8-10.8) K/uL RBC (4.2-5.4) M/uL Hgb (12.0-16.0) g/dL Hct (37-47) % MCV (80-100) fL MCH (25-34) pg MCHC (32-36) g/dL RDW Std Deviation (36.4-46.3) fL RDW Coeff of Courtney (11.5-14.5) % Plt Count (130-400) K/uL MPV (7.4-10.4) fL PT 84.0 H (9.0-12.0) Seconds INR 8.9 H* (0.9-1.1) Sodium (136-145) mmol/L Potassium (3.5-5.1) mmol/L Chloride (98-107) mmol/L Carbon Dioxide (21-32) mmol/L Anion Gap (3-11) BUN (6-23) mg/dl Creatinine (0.6-1.2) mg/dl Est Cr Clr Drug Dosing ml/min Est GFR ( Amer) ml/min Est GFR (Non-Af Amer) ml/min BUN/Creatinine Ratio (10-20) Glucose (70-99(Fasting)) mg/dl POC Glucose 81 220 H (70-99) mg/dl Calcium (8.5-10.1) mg/dl Phosphorus (2.5-4.9) mg/dl Magnesium (1.7-2.4) mg/dl 08/09/21 08/09/21 08/09/21 Range/Units 20:09 16:22 11:10 WBC (4.8-10.8) K/uL RBC (4.2-5.4) M/uL Hgb 8.2 L (12.0-16.0) g/dL Hct 26.2 L (37-47) % MCV (80-100) fL MCH (25-34) pg MCHC (32-36) g/dL RDW Std Deviation (36.4-46.3) fL RDW Coeff of Courtney (11.5-14.5) % Plt Count (130-400) K/uL MPV (7.4-10.4) fL PT (9.0-12.0) Seconds INR (0.9-1.1) Sodium (136-145) mmol/L Potassium (3.5-5.1) mmol/L Chloride (98-107) mmol/L Carbon Dioxide (21-32) mmol/L Anion Gap (3-11) BUN (6-23) mg/dl Creatinine (0.6-1.2) mg/dl Est Cr Clr Drug Dosing ml/min Est GFR ( Amer) ml/min Est GFR (Non-Af Amer) ml/min BUN/Creatinine Ratio (10-20) Glucose (70-99(Fasting)) mg/dl POC Glucose 147 H 80 (70-99) mg/dl Calcium (8.5-10.1) mg/dl Phosphorus (2.5-4.9) mg/dl Magnesium (1.7-2.4) mg/dl Medications Administered Current Inpatient Medications Acetaminophen (Acetaminophen 325 Mg Tab) 650 mg PO Q6H PRN PRN Reason: MILD Pain 1,2,3 Stop: 09/01/21 20:35 Albuterol (Albuterol Hfa 8 Gm Inhaler (Combivent Respimat P&T Subs)) 1 puffs INH Q6H PRN PRN Reason: SOB or wheezing Stop: 09/01/21 21:27 Albuterol (Albut/Ipratrop 3mg/0.5mg Neb 3 Ml Vial) 3 ml INH QIDR PRISCILA; Protocol Stop: 09/02/21 10:59 Last Admin: 08/10/21 07:09 Dose: 3 ml Documented by: Azelastine HCl (Azelastine Hcl 0.1% Nasal 200 Sprays/27,400 Mcg Btl) 2 sprays NA [facility] PENDING SALE TO [facility] Stop: 09/02/21 08:59 Last Admin: 08/10/21 08:35 Dose: 2 sprays Documented by: Benzonatate (Benzonatate 100 Mg Capsule) 100 mg PO TID PENDING SALE TO [facility] Stop: 09/05/21 20:59 Last Admin: 08/10/21 08:34 Dose: 100 mg Documented by: Citalopram Hydrobromide (Citalopram 20 Mg Tab) 10 mg PO DAILY PRISCILA Stop: 09/02/21 08:59 Last Admin: 08/10/21 08:32 Dose: 10 mg Documented by: Dextrose (Dextrose 50% 50 Ml Syringe) 25 - 50 ml IV UD PRN; Protocol PRN Reason: Hypoglycemia Protocol Stop: 09/01/21 20:35 Docusate Sodium (Docusate Sodium 100 Mg Cap) 100 mg PO BID PENDING SALE TO [facility] Stop: 09/05/21 15:39 Last Admin: 08/10/21 08:31 Dose: 100 mg Documented by: Doxycycline Hyclate (Doxycycline Hyclate 100 Mg Cap) 100 mg PO BID PENDING SALE TO [facility] Stop: 08/16/21 23:59 Last Admin: 08/10/21 08:33 Dose: 100 mg Documented by: Fluticasone/Vilanterol (Fluticasone/Vilanterol 100/25mcg 14 Puffs/Inhaler) 1 puffs INH DAILY PENDING SALE TO [facility] Stop: 09/02/21 08:59 Last Admin: 08/10/21 08:36 Dose: Not Given Documented by: Folic Acid (Folic Acid 1 Mg Tab) 1 mg PO QAM PENDING SALE TO [facility] Stop: 09/02/21 08:59 Last Admin: 08/10/21 08:32 Dose: 1 mg Documented by: Furosemide (Furosemide 40 Mg Tab) 40 mg PO QAM PENDING SALE TO [facility] Stop: 09/03/21 09:14 Last Admin: 08/10/21 08:32 Dose: 40 mg Documented by: Glucagon (Glucagon For Inj 1 Mg Vial) 1 mg SQ UD PRN; Protocol PRN Reason: Hypoglycemia Protocol Stop: 09/01/21 20:35 Glucose (Glucose 10 Tabs/Tube) 4 - 8 tabs PO UD PRN; Protocol PRN Reason: Hypoglycemia Protocol Stop: 09/01/21 20:35 Glucose (Glucose 40% Gel 15 Gm Tube) 15 - 30 gm PO UD PRN; Protocol PRN Reason: Hypoglycemia Protocol Stop: 09/01/21 20:35 Guaifenesin (Guaifenesin 600 Mg Tabcr) 600 mg PO Q12 PRISCILA Stop: 09/01/21 20:59 Last Admin: 08/10/21 08:32 Dose: 600 mg Documented by: Hydromorphone HCl (Hydromorphone Inj 0.5 Mg/0.5 Ml Syr) 0.5 mg IV Q3H PRN PRN Reason: Pain Stop: 08/16/21 21:50 Last Admin: 08/09/21 17:54 Dose: 0.5 mg Documented by: Pantoprazole Sodium 40 mg/ (Syringe) 10 mls @ 5 mls/min IV BID PRISCILA Stop: 09/07/21 14:44 Last Admin: 08/10/21 08:35 Dose: 5 mls/min Documented by: Insulin Aspart (Insulin Aspart Per Unit) 0 units SC Q6 PRISCILA Stop: 09/01/21 20:59 Last Admin: 08/10/21 06:12 Dose: Not Given Documented by: Ipratropium [place] (Ipratropium Hfa Inhaler (Combivent Respimat P&T Subs)) 1 puffs INH Q6H PRN PRN Reason: SOB or wheezing Stop: 09/01/21 21:27 Levothyroxine Sodium (Levothyroxine Sodium 100 Mcg Tablet) 100 mcg PO DAILYBB PRISCILA Stop: 09/02/21 06:29 Last Admin: 08/10/21 06:21 Dose: 100 mcg Documented by: Magnesium Hydroxide (Magnesium Hydroxide Susp 30 Ml Udc) 5 ml PO DAILY PRN PRN Reason: Constipation Stop: 09/01/21 20:35 Metoclopramide HCl (Metoclopramide Hcl 10 Mg Tablet) 10 mg PO DAILY PRN PRN Reason: Nausea Stop: 09/01/21 20:35 Last Admin: 08/09/21 15:25 Dose: 10 mg Documented by: Metoprolol Tartrate (Metoprolol Tartrate 25 Mg Tab) 25 mg PO BID PRISCILA Stop: 09/03/21 08:59 Last Admin: 08/10/21 08:33 Dose: 25 mg Documented by: Miscellaneous (Carbohydrates For Hypoglycemia ) 15 - 30 gm PO UD PRN PRN Reason: Hypoglycemia Protocol Stop: 09/01/21 20:35 Nitroglycerin (Nitroglycerin Sl 0.4 Mg/Tab Tab) 0.4 mg SL Q5M PRN PRN Reason: Chest Pain Stop: 09/01/21 20:35 Pantoprazole Sodium (Pantoprazole 40 Mg Tab) 40 mg PO PM PENDING SALE TO [facility] Stop: 09/01/21 20:59 Last Admin: 08/07/21 20:46 Dose: 40 mg Documented by: Ropinirole HCl (Ropinirole Hcl 2 Mg Tablet) 2 mg PO TID PENDING SALE TO [facility] Stop: 09/01/21 20:59 Last Admin: 08/10/21 08:32 Dose: 2 mg Documented by: Rosuvastatin Calcium (Rosuvastatin Calcium 20 Mg Tab) 20 mg PO HS PENDING SALE TO [facility] Stop: 09/01/21 20:59 Last Admin: 08/09/21 21:52 Dose: 20 mg Documented by: Sennosides (Senna 8.6 Mg Tab) 17.2 mg PO HS PRN PRN Reason: Constipation Last Admin: 08/05/21 09:53 Dose: 17.2 mg Documented by: Spironolactone (Spironolactone 12.5 Mg Tab) 12.5 mg PO DAILY PENDING SALE TO [facility] Stop: 09/02/21 08:59 Last Admin: 08/10/21 08:33 Dose: 12.5 mg Documented by: Tramadol HCl (Tramadol Hcl 50 Mg Tablet) 50 mg PO TID PRN PRN Reason: MOD-SEVERE Pain4,5,6,7,8,9,10 Stop: 09/01/21 20:35 Last Admin: 08/10/21 01:54 Dose: 50 mg Documented by: Warfarin Sodium (Warfarin Sod 3 Mg Tab) 3 mg PO DAILY@1600 PENDING SALE TO [facility] Stop: 09/09/21 15:59
[2021-08-10] MEDS ORDERED: Nursing to Pharmacy Communication SCH (12:00)
[2021-08-10] MEDS: HYDROmorphone INJ 0.5 MG/0.5 ML SYR IV PRN (14:52)
[2021-08-10] MEDS: WARFARIN SOD 3 MG TAB PO SCH (16:42)
[2021-08-10] MEDS: ROSUVASTATIN CALCIUM 20 MG TAB PO SCH (21:11)
[2021-08-10] MEDS: MELATONIN 3 MG TAB PO PRN (21:57)
[2021-08-11] MEDS: HYDROmorphone INJ 0.5 MG/0.5 ML SYR IV PRN ×3 (01:49→23:13)
[2021-08-11] MEDS: LEVOTHYROXINE SODIUM 100 MCG TABLET PO SCH (05:40)
[2021-08-11 06:59] LABS: Hematocrit (blood only) 26.9 % (37-47); Hemoglobin 8.4 g/dL (12.0-16.0); Mean Corpuscular Hemoglobin 27.1 pg (25-34); Mean Corpuscular Hgb Conc 31.2 g/dL (32-36); Mean Corpuscular Volume 86.8 fL (80-100); Mean Platelet Volume 9.7 fL (7.4-10.4); Platelet Count 261 K/uL (130-400); RDW Coefficient of Variation 17.4 % (11.5-14.5); RDW Standard Deviation 53.4 fL (36.4-46.3); White Blood Count 7.75 K/uL (4.8-10.8)
[2021-08-11] MEDS: ALBUT/IPRATROP 3MG/0.5MG NEB 3 ML VIAL INH SCH ×4 (07:06→19:30)
[2021-08-11 07:14] LABS: INR 1.2 (0.9-1.1); Prothrombin Time 13.1 Seconds (9.0-12.0)
[2021-08-11 07:29] LABS: Calcium 9.4 mg/dl (8.5-10.1); Creatinine Clr Calc Pharmacy 33.9 ml/min; Est GFR (African American) 51.2 ml/min; Est GFR (Non-African American) 44.2 ml/min; Potassium 3.6 mmol/L (3.5-5.1)
[2021-08-11] MEDS: INSULIN ASPART PER UNIT SC SCH ×4 (09:15→20:02)
[2021-08-11] MEDS: CITALOPRAM 20 MG TAB PO SCH (09:17)
[2021-08-11] MEDS: PANTOprazole 40 MG in SYRINGE 0 ML IV SCH (09:17)
[2021-08-11] MEDS: SENNA 8.6 MG TAB PO PRN (09:19)
[2021-08-11] MEDS: FUROSEMIDE 40 MG TAB PO SCH (09:19)
[2021-08-11] MEDS: FOLIC ACID 1 MG TAB PO SCH (09:20)
[2021-08-11] MEDS: SPIRONOLACTONE 12.5 MG TAB PO SCH (09:20)
[2021-08-11] MEDS: METOPROLOL TARTRATE 25 MG TAB PO SCH ×2 (09:21→20:25)
[2021-08-11] MEDS: rOPINIRole HCL 2 MG TABLET PO SCH ×3 (09:21→14:35)
[2021-08-11] MEDS: METOCLOPRAMIDE HCL 10 MG TABLET PO PRN (09:21)
[2021-08-11] MEDS: guaiFENesin 600 MG TABCR PO SCH ×2 (09:23→20:14)
[2021-08-11] MEDS: DOCUSATE SODIUM 100 MG CAP PO SCH ×2 (09:24→20:14)
[2021-08-11] MEDS: DOXYCYCLINE HYCLATE 100 MG CAP PO SCH ×2 (09:24→20:15)
[2021-08-11] MEDS: BENZONATATE 100 MG CAPSULE PO SCH ×3 (09:24→20:13)
[2021-08-11] MEDS: FLUTICASONE/VILANTEROL 100/25MCG 14 PUFFS/INHALER INH SCH (09:25)
[2021-08-11] MEDS: AZELASTINE HCL 0.1% NASAL 200 SPRAYS/27,400 MCG BTL SCH ×2 (09:25→20:12)
--- NOTE | 2021-08-11 09:39 | Hospitalist Progress Note ---
Date of Service August 11, 2021 Assessment & Plan (1) H/O mitral valve replacement with mechanical valve: (2) Nontraumatic intramuscular hematoma: Plan: 65 yo F w/ type 2 diabetes, currently not on any medications, chronic kidney disease stage III, hypothyroidism, hyperlipidemia, atrial fibrillation, tachybrady syndrome, history of syncope, status post loop recorder, chronic diastolic CHF, history of rheumatic heart disease, history of CAD, varicose veins of both legs, history of GERD, generalized osteoarthritis, restless legs syndrome, status post mechanical mitral valve replacement, history of TIA, history of recurrent falls, generalized anxiety disorder who was recently admitted 07/18-07/25 for shortness of breath and leg swelling improved with iv diuresis; also had EGD 07/24 for barium pill stuck in esophagus and was discharged on lovenox 60 bid along with coumadin because of subtherapeutic INR (h/o mechanical MVR) presented to the ED 08/02 with worsening left thigh pain for the past 2 days [employer]. She is being managed for the following: Admitting CT LLE 1. Acute intramuscular hemorrhage within the left iliacus, iliopsoas muscles and adductor muscles. Associated extraperitoneal hemorrhage. At least moderate intramuscular hemorrhage. Proximal extent of intramuscular hemorrhage not imaged on this exam. No active extravasation within visualized portions of the intramuscular hemorrhage. 2. Patent left common femoral and superficial femoral arteries. Intramuscular hematoma, non traumatic - CT reviewed as above- no active extravasation noted. No flank or abd tenderness to suspect Retroperitoneal bleed. - Hb at 10.1 at presentation, INR 2.7- received 1 mg of Vit K - Currently no compartment syndrome but will watch closely- (if so, will need urgent ortho evaluation and probably complete reversal of INR) - Trend H&H, transfuse as indicated --> Hb stable around 8.0, no erythema or increasing swelling. continue to monitor. INR. Pt has been on current dose of warfarin for long time per Pt. - PT/OT, likely DC to snf required. Pt declining any placement. 08/09 INR 7.1 - discussed w/ cardiology - hold coumadin, no vit. K 08/10 - INR 2.9 , however last night INR was 8.9 and vit. K given by night physician 08/11 INR 1.2 - increased warfarin dose, heparin subq ordered Mechanical MV on coumadin Permanent Afib H/o embolic [place] and TIA Goal INR 3-3.5. Moving forward will avoid Lovenox or subcutaneous heparin bridges. On lopressor increased to 25 mg PO BID per cardio 08/09 INR 7.1 - discussed w/ cardiology - hold coumadin, no vit. K ? Melena: had multiple formed stools overnight, dark colored per RN, fobt +ve, pt on anticoagulation for Mechanical MV valve. GI consulted - no need for endoscopy, Hgb stable, stools brown. Had endoscopy recently, pls see full detail in their report. transfuse for symptomatic anemia for Hb < 7.5 given cardiac history. Electrolytes abnormality: Monitor and replete electrolytes, maintain K greater than 4 and Mg greater than 2 Hyponatremia: Na 129, generally 130-133 at baseline. When on diet, increase protein content in diet, FR, and low sodium diet, continue to monitor. Consider Nephro if with worsening s/s. Leucocytosis:WBC elevated at admission, trended up to 16.75K, trending down, afebrile, procal minimally elevated but trended down. Likely reactive to hematoma. 08/05 CXR w/ no acute finding. UA reviewed, UCx coag negative staph not saprophytic, Bl Cx negative Staph UTI: 08/05 UCx +ve for coag negative staph not saprophytic, initially Vanco 08/07, now c/w w/ doxy Possible asthmatic bronchitis- started on breo and combivent prn by pulm during recent admission, continue w/ same. CKD3- Cr stable at baseline of around 1.4-1.6 Chronic diastolic CHF- on lasix and aldactone. Lasix (per cardio) upon DC: 40mg 3 days/wk and 80 mg 4 days/wk. BMP in 1 wk upon DC. BOBBY- on celexa DM-2- A1 7. not on insulin, SSI prn GERD- on PPI Dispo- PCU tele, expect dc in next 2-3 days if placement. Will need hemoglobin and INR to stabilize before discharging. Med telemetry. DVT ppx- coumadin Full Code. Admission and Anticipated Discharge Date Admission Date: August 02, 2021 Subjective Patient seen in follow-up of nontraumatic intramuscular hematoma of left thigh. Hx of mechanical mitral valve. Supratherapeutic INR, received vit.K overnight, now subtherapeutic Patient is sitting up in bed, on room air, in NAD. Pt denies any chest pain, shortness of breath, palpitations. Reports that her left leg is feeling better, she has more feeling in it now. Review of Systems Review of Systems: All systems reviewed & are unremarkable except as noted in Subjective Physical Exam Physical Exam: GENERAL: Alert and oriented x3. NAD, on RA. HEENT: No pallor, no icterus. EOMI. Pupils equal, round and reactive to light. Oral mucosa moist. NECK: No JVD, no neck masses. HEART: S1 and S2 heard. irregular rate and rhythm. No murmur, no gallop. RESPIRATORY SYSTEM: Normal AP diameter. No accessory muscle use. CTA. ABDOMEN: Soft, bowel sounds present, nontender, no distention. NEURO: No facial droop. Speech is clear. Obeys simple commands. Moves extremities. EXTREMITIES: trace ble edema, no erythema seen. Lt swelling improving, bruise medial left thigh and left buttock/low back stable, No erythema. Tenderness/numbness and ROM improving. Distal NV status normal. Results & Data Results & Data ([facility]) Vital Signs (Past 12 Hours) Vital Signs Temp Pulse Pulse Resp BP BP Pulse Ox 08/11/21 07:09 36.8 C 73 16 108/61 94 08/11/21 07:07 77 18 98 08/11/21 04:20 36.7 C 73 18 96/57 L 98 08/10/21 23:30 37.0 C 78 82 18 116/68 97 Laboratory Results 08/11/21 08/11/21 08/11/21 Range/Units 07:45 06:15 06:15 WBC (4.8-10.8) K/uL RBC (4.2-5.4) M/uL Hgb (12.0-16.0) g/dL Hct (37-47) % MCV (80-100) fL MCH (25-34) pg MCHC (32-36) g/dL RDW Std Deviation (36.4-46.3) fL RDW Coeff of Courtney (11.5-14.5) % Plt Count (130-400) K/uL MPV (7.4-10.4) fL PT 13.1 H (9.0-12.0) Seconds INR 1.2 H (0.9-1.1) Sodium 132 L (136-145) mmol/L Potassium 3.6 (3.5-5.1) mmol/L Chloride 96 L (98-107) mmol/L Carbon Dioxide 30 (21-32) mmol/L Anion Gap 6 (3-11) BUN 25 H (6-23) mg/dl Creatinine 1.25 H (0.6-1.2) mg/dl Est Cr Clr Drug Dosing 33.9 ml/min Est GFR ( Amer) 51.2 ml/min Est GFR (Non-Af Amer) 44.2 ml/min BUN/Creatinine Ratio 20.0 (10-20) Glucose 115 H (70-99(Fasting)) mg/dl POC Glucose 120 H (70-99) mg/dl Calcium 9.4 (8.5-10.1) mg/dl 08/11/21 08/10/21 08/10/21 Range/Units 06:15 16:32 11:42 WBC 7.75 (4.8-10.8) K/uL RBC 3.10 L (4.2-5.4) M/uL Hgb 8.4 L (12.0-16.0) g/dL Hct 26.9 L (37-47) % MCV 86.8 (80-100) fL MCH 27.1 (25-34) pg MCHC 31.2 L (32-36) g/dL RDW Std Deviation 53.4 H (36.4-46.3) fL RDW Coeff of Courtney 17.4 H (11.5-14.5) % Plt Count 261 (130-400) K/uL MPV 9.7 (7.4-10.4) fL PT (9.0-12.0) Seconds INR (0.9-1.1) Sodium (136-145) mmol/L Potassium (3.5-5.1) mmol/L Chloride (98-107) mmol/L Carbon Dioxide (21-32) mmol/L Anion Gap (3-11) BUN (6-23) mg/dl Creatinine (0.6-1.2) mg/dl Est Cr Clr Drug Dosing ml/min Est GFR ( Amer) ml/min Est GFR (Non-Af Amer) ml/min BUN/Creatinine Ratio (10-20) Glucose (70-99(Fasting)) mg/dl POC Glucose 199 H 167 H (70-99) mg/dl Calcium (8.5-10.1) mg/dl Medications Administered Current Inpatient Medications Acetaminophen (Acetaminophen 325 Mg Tab) 650 mg PO Q6H PRN PRN Reason: MILD Pain 1,2,3 Stop: 09/01/21 20:35 Albuterol (Albuterol Hfa 8 Gm Inhaler (Combivent Respimat P&T Subs)) 1 puffs INH Q6H PRN PRN Reason: SOB or wheezing Stop: 09/01/21 21:27 Albuterol (Albut/Ipratrop 3mg/0.5mg Neb 3 Ml Vial) 3 ml INH QIDR [facility]; Protocol Stop: 09/02/21 10:59 Last Admin: 08/11/21 07:06 Dose: 3 ml Documented by: Azelastine HCl (Azelastine Hcl 0.1% Nasal 200 Sprays/27,400 Mcg Btl) 2 sprays NA AMHS [facility] Stop: 09/02/21 08:59 Last Admin: 08/11/21 09:25 Dose: 2 sprays Documented by: Benzonatate (Benzonatate 100 Mg Capsule) 100 mg PO TID COUNT INCLUDES THE [facility] Stop: 09/05/21 20:59 Last Admin: 08/11/21 09:24 Dose: 100 mg Documented by: Citalopram Hydrobromide (Citalopram 20 Mg Tab) 10 mg PO DAILY COUNT INCLUDES THE [facility] Stop: 09/02/21 08:59 Last Admin: 08/11/21 09:17 Dose: 10 mg Documented by: Dextrose (Dextrose 50% 50 Ml Syringe) 25 - 50 ml IV UD PRN; Protocol PRN Reason: Hypoglycemia Protocol Stop: 09/01/21 20:35 Docusate Sodium (Docusate Sodium 100 Mg Cap) 100 mg PO BID COUNT INCLUDES THE [facility] Stop: 09/05/21 15:39 Last Admin: 08/11/21 09:24 Dose: 100 mg Documented by: Doxycycline Hyclate (Doxycycline Hyclate 100 Mg Cap) 100 mg PO BID COUNT INCLUDES THE [facility] Stop: 08/16/21 23:59 Last Admin: 08/11/21 09:24 Dose: 100 mg Documented by: Fluticasone/Vilanterol (Fluticasone/Vilanterol 100/25mcg 14 Puffs/Inhaler) 1 puffs INH DAILY [facility] Stop: 09/02/21 08:59 Last Admin: 08/11/21 09:25 Dose: 1 puffs Documented by: Folic Acid (Folic Acid 1 Mg Tab) 1 mg PO QAM [facility] Stop: 09/02/21 08:59 Last Admin: 08/11/21 09:20 Dose: 1 mg Documented by: Furosemide (Furosemide 40 Mg Tab) 40 mg PO QAM [facility] Stop: 09/03/21 09:14 Last Admin: 08/11/21 09:19 Dose: 40 mg Documented by: Glucagon (Glucagon For Inj 1 Mg Vial) 1 mg SQ UD PRN; Protocol PRN Reason: Hypoglycemia Protocol Stop: 09/01/21 20:35 Glucose (Glucose 10 Tabs/Tube) 4 - 8 tabs PO UD PRN; Protocol PRN Reason: Hypoglycemia Protocol Stop: 09/01/21 20:35 Glucose (Glucose 40% Gel 15 Gm Tube) 15 - 30 gm PO UD PRN; Protocol PRN Reason: Hypoglycemia Protocol Stop: 09/01/21 20:35 Guaifenesin (Guaifenesin 600 Mg Tabcr) 600 mg PO Q12 [facility] Stop: 09/01/21 20:59 Last Admin: 08/11/21 09:23 Dose: 600 mg Documented by: Hydromorphone HCl (Hydromorphone Inj 0.5 Mg/0.5 Ml Syr) 0.5 mg IV Q3H PRN PRN Reason: Pain Stop: 08/16/21 21:50 Last Admin: 08/11/21 01:49 Dose: 0.5 mg Documented by: Pantoprazole Sodium 40 mg/ (Syringe) 10 mls @ 5 mls/min IV BID COUNT INCLUDES THE [facility] Stop: 09/07/21 14:44 Last Admin: 08/11/21 09:17 Dose: 5 mls/min Documented by: Insulin Aspart (Insulin Aspart Per Unit) 0 units SC ACHS COUNT INCLUDES THE [facility] Stop: 09/09/21 16:29 Last Admin: 08/11/21 09:15 Dose: Not Given Documented by: Ipratropium [place] (Ipratropium Hfa Inhaler (Combivent Respimat P&T Subs)) 1 puffs INH Q6H PRN PRN Reason: SOB or wheezing Stop: 09/01/21 21:27 Levothyroxine Sodium (Levothyroxine Sodium 100 Mcg Tablet) 100 mcg PO DAILYBB [facility] Stop: 09/02/21 06:29 Last Admin: 08/11/21 05:40 Dose: 100 mcg Documented by: Magnesium Hydroxide (Magnesium Hydroxide Susp 30 Ml Udc) 5 ml PO DAILY PRN PRN Reason: Constipation Stop: 09/01/21 20:35 Melatonin (Melatonin 3 Mg Tab) 3 mg PO HS PRN PRN Reason: Sleep Stop: 09/09/21 21:27 Last Admin: 08/10/21 21:57 Dose: 3 mg Documented by: Metoclopramide HCl (Metoclopramide Hcl 10 Mg Tablet) 10 mg PO DAILY PRN PRN Reason: Nausea Stop: 09/01/21 20:35 Last Admin: 08/11/21 09:21 Dose: 10 mg Documented by: Metoprolol Tartrate (Metoprolol Tartrate 25 Mg Tab) 25 mg PO BID [facility] Stop: 09/03/21 08:59 Last Admin: 08/11/21 09:21 Dose: 25 mg Documented by: Miscellaneous (Carbohydrates For Hypoglycemia ) 15 - 30 gm PO UD PRN PRN Reason: Hypoglycemia Protocol Stop: 09/01/21 20:35 Nitroglycerin (Nitroglycerin Sl 0.4 Mg/Tab Tab) 0.4 mg SL Q5M PRN PRN Reason: Chest Pain Stop: 09/01/21 20:35 Pantoprazole Sodium (Pantoprazole 40 Mg Tab) 40 mg PO PM [facility] Stop: 09/01/21 20:59 Last Admin: 08/07/21 20:46 Dose: 40 mg Documented by: Ropinirole HCl (Ropinirole Hcl 2 Mg Tablet) 2 mg PO TID [facility] Stop: 09/01/21 20:59 Last Admin: 08/11/21 09:21 Dose: 2 mg Documented by: Rosuvastatin Calcium (Rosuvastatin Calcium 20 Mg Tab) 20 mg PO HS [facility] Stop: 09/01/21 20:59 Last Admin: 08/10/21 21:11 Dose: 20 mg Documented by: Sennosides (Senna 8.6 Mg Tab) 17.2 mg PO HS PRN PRN Reason: Constipation Last Admin: 08/11/21 09:19 Dose: 17.2 mg Documented by: Spironolactone (Spironolactone 12.5 Mg Tab) 12.5 mg PO DAILY COUNT INCLUDES THE [facility] Stop: 09/02/21 08:59 Last Admin: 08/11/21 09:20 Dose: 12.5 mg Documented by: Tramadol HCl (Tramadol Hcl 50 Mg Tablet) 50 mg PO TID PRN PRN Reason: MOD-SEVERE Pain4,5,6,7,8,9,10 Stop: 09/01/21 20:35 Last Admin: 08/10/21 22:23 Dose: 50 mg Documented by: Warfarin Sodium (Warfarin Sod 3 Mg Tab) 3 mg PO DAILY@1600 COUNT INCLUDES THE [facility] Stop: 09/09/21 15:59 Last Admin: 08/10/21 16:42 Dose: 3 mg Documented by:
[2021-08-11] MEDS: WARFARIN SOD 3 MG TAB PO SCH (16:04)
[2021-08-11] MEDS ORDERED: WARFARIN SOD 2 MG TAB PO ONE (16:57)
[2021-08-11] MEDS: ROSUVASTATIN CALCIUM 20 MG TAB PO SCH (20:14)
[2021-08-11] MEDS: HEPARIN SOD 5,000 UNIT/0.5 ML VIAL SQ SCH ×3 (20:15→22:25)
[2021-08-11] MEDS: PANTOprazole 40 MG TAB PO SCH (20:16)
[2021-08-11] MEDS: MELATONIN 3 MG TAB PO PRN (23:12)
[2021-08-12] MEDS: LEVOTHYROXINE SODIUM 100 MCG TABLET PO SCH (06:17)
[2021-08-12] MEDS: ALBUT/IPRATROP 3MG/0.5MG NEB 3 ML VIAL INH SCH ×4 (07:02→19:19)
[2021-08-12 07:25] LABS: INR 1.2 (0.9-1.1); Prothrombin Time 12.6 Seconds (9.0-12.0)
[2021-08-12 07:26] LABS: Hemoglobin 9.3 g/dL (12.0-16.0)
[2021-08-12] MEDS: DOCUSATE SODIUM 100 MG CAP PO SCH ×2 (07:27→21:28)
[2021-08-12] MEDS: rOPINIRole HCL 2 MG TABLET PO SCH ×3 (07:27→21:11)
[2021-08-12] MEDS: guaiFENesin 600 MG TABCR PO SCH ×2 (07:27→21:07)
[2021-08-12] MEDS: DOXYCYCLINE HYCLATE 100 MG CAP PO SCH ×2 (07:28→21:06)
[2021-08-12] MEDS: METOPROLOL TARTRATE 25 MG TAB PO SCH ×2 (07:28→21:10)
[2021-08-12] MEDS: CITALOPRAM 20 MG TAB PO SCH (07:28)
[2021-08-12] MEDS: FUROSEMIDE 40 MG TAB PO SCH (07:28)
[2021-08-12] MEDS: SPIRONOLACTONE 12.5 MG TAB PO SCH (07:28)
[2021-08-12] MEDS: SENNA 8.6 MG TAB PO PRN (07:28)
[2021-08-12] MEDS: BENZONATATE 100 MG CAPSULE PO SCH ×3 (07:29→21:28)
[2021-08-12] MEDS: FOLIC ACID 1 MG TAB PO SCH (07:29)
[2021-08-12] MEDS: FLUTICASONE/VILANTEROL 100/25MCG 14 PUFFS/INHALER INH SCH (07:33)
[2021-08-12] MEDS: HEPARIN SOD 5,000 UNIT/0.5 ML VIAL SQ SCH ×2 (07:33→21:08)
[2021-08-12] MEDS: AZELASTINE HCL 0.1% NASAL 200 SPRAYS/27,400 MCG BTL SCH ×2 (07:33→21:06)
[2021-08-12] MEDS: INSULIN ASPART PER UNIT SC SCH ×4 (07:43→21:09)
--- NOTE | 2021-08-12 08:10 | Hospitalist Progress Note ---
Date of Service August 12, 2021 Assessment & Plan (1) H/O mitral valve replacement with mechanical valve: (2) Nontraumatic intramuscular hematoma: Plan: 65 yo F w/ type 2 diabetes, currently not on any medications, chronic kidney disease stage III, hypothyroidism, hyperlipidemia, atrial fibrillation, tachybrady syndrome, history of syncope, status post loop recorder, chronic diastolic CHF, history of rheumatic heart disease, history of CAD, varicose veins of both legs, history of GERD, generalized osteoarthritis, restless legs syndrome, status post mechanical mitral valve replacement, history of TIA, history of recurrent falls, generalized anxiety disorder who was recently admitted 07/18-07/25 for shortness of breath and leg swelling improved with iv diuresis; also had EGD 07/24 for barium pill stuck in esophagus and was discharged on lovenox 60 bid along with coumadin because of subtherapeutic INR (h/o mechanical MVR) presented to the ED 08/02 with worsening left thigh pain for the past 2 days [employer]. She is being managed for the following: Admitting CT LLE 1. Acute intramuscular hemorrhage within the left iliacus, iliopsoas muscles and adductor muscles. Associated extraperitoneal hemorrhage. At least moderate intramuscular hemorrhage. Proximal extent of intramuscular hemorrhage not imaged on this exam. No active extravasation within visualized portions of the intramuscular hemorrhage. 2. Patent left common femoral and superficial femoral arteries. Intramuscular hematoma, non traumatic - CT reviewed as above- no active extravasation noted. No flank or abd tenderness to suspect Retroperitoneal bleed. - Hb at 10.1 at presentation, INR 2.7- received 1 mg of Vit K - Currently no compartment syndrome but will watch closely- (if so, will need urgent ortho evaluation and probably complete reversal of INR) - Trend H&H, transfuse as indicated --> Hb stable around 8.0, no erythema or increasing swelling. continue to monitor. INR. Pt has been on current dose of warfarin for long time per Pt. - PT/OT, likely DC to snf required. Pt declining any placement. 08/09 INR 7.1 - discussed w/ cardiology - hold coumadin, no vit. K 08/10 - INR 2.9 , however last night INR was 8.9 and vit. K given by night physician 08/11 INR 1.2 - increased warfarin dose, heparin subq ordered 08/12 INR 1.2 - back to 5 mg warfarin, incr. subq heparin, may need to consider IV heparin (likely w/o bolus) - will discuss w/ cardiology if no improvement in INR Mechanical MV on coumadin Permanent Afib H/o embolic [place] and TIA Goal INR 3-3.5. Moving forward will avoid Lovenox or subcutaneous heparin bridges. On lopressor increased to 25 mg PO BID per cardio 08/09 INR 7.1 - discussed w/ cardiology - hold coumadin, no vit. K ? Melena: had multiple formed stools overnight, dark colored per RN, fobt +ve, pt on anticoagulation for Mechanical MV valve. GI consulted - no need for endoscopy, Hgb stable, stools brown. Had endoscopy recently, pls see full detail in their report. transfuse for symptomatic anemia for Hb < 7.5 given cardiac history. Electrolytes abnormality: Monitor and replete electrolytes, maintain K greater than 4 and Mg greater than 2 Hyponatremia: Na 129, generally 130-133 at baseline. When on diet, increase protein content in diet, FR, and low sodium diet, continue to monitor. Consider Nephro if with worsening s/s. Leukocytosis:WBC elevated at admission, trended up to 16.75K, trending down, afebrile, procal minimally elevated but trended down. Likely reactive to hematoma. 08/05 CXR w/ no acute finding. UA reviewed, UCx coag negative staph not saprophytic, Bl Cx negative Staph UTI: 08/05 UCx +ve for coag negative staph not saprophytic, initially Vanco 08/07, now c/w w/ doxy Possible asthmatic bronchitis- started on breo and combivent prn by pulm during recent admission, continue w/ same. CKD3- Cr stable at baseline of around 1.4-1.6 Chronic diastolic CHF- on lasix and aldactone. Lasix (per cardio) upon DC: 40mg 3 days/wk and 80 mg 4 days/wk. BMP in 1 wk upon DC. BOBBY- on celexa DM-2- A1 7. not on insulin, SSI prn GERD- on PPI Dispo- PCU tele, expect dc in next 2-3 days if placement. Will need hemoglobin and INR to stabilize before discharging. Med telemetry. DVT ppx- coumadin Full Code. Admission and Anticipated Discharge Date Admission Date: August 02, 2021 Subjective Patient seen in follow-up of nontraumatic intramuscular hematoma of left thigh. Hx of mechanical mitral valve. Supratherapeutic INR, received vit.K overnight, now subtherapeutic Patient is sitting up in bed, on room air, in NAD. Pt denies any chest pain, shortness of breath, palpitations. Reports that her left leg is feeling better, she has more feeling in it now, able to ambulate somewhat. Review of Systems Review of Systems: All systems reviewed & are unremarkable except as noted in Subjective Physical Exam Physical Exam: GENERAL: Alert and oriented x3. NAD, on RA. HEENT: No pallor, no icterus. EOMI. Pupils equal, round and reactive to light. Oral mucosa moist. NECK: No JVD, no neck masses. HEART: S1 and S2 heard. irregular rate and rhythm. No murmur, no gallop. RESPIRATORY SYSTEM: Normal AP diameter. No accessory muscle use. CTA. ABDOMEN: Soft, bowel sounds present, nontender, no distention. NEURO: No facial droop. Speech is clear. Obeys simple commands. Moves extremities. EXTREMITIES: trace ble edema, no erythema seen. Lt swelling improving, bruise medial left thigh and left buttock/low back stable, No erythema. Tenderness/numbness and ROM improving. Distal NV status normal. Results & Data Results & Data ([facility]) Vital Signs (Past 12 Hours) Vital Signs Temp Pulse Pulse Resp BP Pulse Ox 08/12/21 07:29 36.8 C 78 20 122/56 L 98 08/12/21 07:02 78 16 98 08/12/21 04:55 36.5 C 73 20 122/67 98 08/12/21 00:08 82 08/11/21 23:18 37.1 C 87 20 119/69 97 08/11/21 21:30 97 H 08/11/21 20:24 99 H 126/68 Laboratory Results 08/12/21 08/12/21 08/12/21 Range/Units 07:23 06:20 06:20 Hgb 9.3 L (12.0-16.0) g/dL Hct 30.0 L (37-47) % PT 12.6 H (9.0-12.0) Seconds INR 1.2 H (0.9-1.1) POC Glucose 103 H (70-99) mg/dl 08/12/21 08/11/21 08/11/21 Range/Units 01:32 17:01 11:09 Hgb (12.0-16.0) g/dL Hct (37-47) % PT (9.0-12.0) Seconds INR (0.9-1.1) POC Glucose 112 H 147 H 138 H (70-99) mg/dl 08/10/21 Range/Units 21:00 Hgb (12.0-16.0) g/dL Hct (37-47) % PT (9.0-12.0) Seconds INR (0.9-1.1) POC Glucose 194 H (70-99) mg/dl Medications Administered Current Inpatient Medications Acetaminophen (Acetaminophen 325 Mg Tab) 650 mg PO Q6H PRN PRN Reason: MILD Pain 1,2,3 Stop: 09/01/21 20:35 Albuterol (Albuterol Hfa 8 Gm Inhaler (Combivent Respimat P&T Subs)) 1 puffs INH Q6H PRN PRN Reason: SOB or wheezing Stop: 09/01/21 21:27 Albuterol (Albut/Ipratrop 3mg/0.5mg Neb 3 Ml Vial) 3 ml INH QIDR PRISCIL[facility]; Protocol Stop: 09/02/21 10:59 Last Admin: 08/12/21 07:02 Dose: 3 ml Documented by: Azelastine HCl (Azelastine Hcl 0.1% Nasal 200 Sprays/27,400 Mcg Btl) 2 sprays NA AMHS [facility] Stop: 09/02/21 08:59 Last Admin: 08/12/21 07:33 Dose: 2 sprays Documented by: Benzonatate (Benzonatate 100 Mg Capsule) 100 mg PO TID [facility] Stop: 09/05/21 20:59 Last Admin: 08/12/21 07:29 Dose: 100 mg Documented by: Citalopram Hydrobromide (Citalopram 20 Mg Tab) 10 mg PO DAILY [facility] Stop: 09/02/21 08:59 Last Admin: 08/12/21 07:28 Dose: 10 mg Documented by: Dextrose (Dextrose 50% 50 Ml Syringe) 25 - 50 ml IV UD PRN; Protocol PRN Reason: Hypoglycemia Protocol Stop: 09/01/21 20:35 Docusate Sodium (Docusate Sodium 100 Mg Cap) 100 mg PO BID [facility] Stop: 09/05/21 15:39 Last Admin: 08/12/21 07:27 Dose: 100 mg Documented by: Doxycycline Hyclate (Doxycycline Hyclate 100 Mg Cap) 100 mg PO BID [facility] Stop: 08/16/21 23:59 Last Admin: 08/12/21 07:28 Dose: 100 mg Documented by: Fluticasone/Vilanterol (Fluticasone/Vilanterol 100/25mcg 14 Puffs/Inhaler) 1 puffs INH DAILY [facility] Stop: 09/02/21 08:59 Last Admin: 08/12/21 07:33 Dose: 1 puffs Documented by: Folic Acid (Folic Acid 1 Mg Tab) 1 mg PO QAM [facility] Stop: 09/02/21 08:59 Last Admin: 08/12/21 07:29 Dose: 1 mg Documented by: Furosemide (Furosemide 40 Mg Tab) 40 mg PO QAM [facility] Stop: 09/03/21 09:14 Last Admin: 08/12/21 07:28 Dose: 40 mg Documented by: Glucagon (Glucagon For Inj 1 Mg Vial) 1 mg SQ UD PRN; Protocol PRN Reason: Hypoglycemia Protocol Stop: 09/01/21 20:35 Glucose (Glucose 10 Tabs/Tube) 4 - 8 tabs PO UD PRN; Protocol PRN Reason: Hypoglycemia Protocol Stop: 09/01/21 20:35 Glucose (Glucose 40% Gel 15 Gm Tube) 15 - 30 gm PO UD PRN; Protocol PRN Reason: Hypoglycemia Protocol Stop: 09/01/21 20:35 Guaifenesin (Guaifenesin 600 Mg Tabcr) 600 mg PO Q12 [facility] Stop: 09/01/21 20:59 Last Admin: 08/12/21 07:27 Dose: 600 mg Documented by: Heparin Sodium (Porcine) (Heparin Sod 5,000 Unit/0.5 Ml Vial) 5,000 units SQ Q12 [facility] Stop: 09/10/21 20:59 Last Admin: 08/12/21 07:33 Dose: 5,000 units Documented by: Hydromorphone HCl (Hydromorphone Inj 0.5 Mg/0.5 Ml Syr) 0.5 mg IV Q3H PRN PRN Reason: Pain Stop: 08/16/21 21:50 Last Admin: 08/11/21 23:13 Dose: 0.5 mg Documented by: Insulin Aspart (Insulin Aspart Per Unit) 0 units SC ACHS [facility] Stop: 09/09/21 16:29 Last Admin: 08/12/21 07:43 Dose: Not Given Documented by: Ipratropium [place] (Ipratropium Hfa Inhaler (Combivent Respimat P&T Subs)) 1 puffs INH Q6H PRN PRN Reason: SOB or wheezing Stop: 09/01/21 21:27 Levothyroxine Sodium (Levothyroxine Sodium 100 Mcg Tablet) 100 mcg PO DAILYBB [facility] Stop: 09/02/21 06:29 Last Admin: 08/12/21 06:17 Dose: 100 mcg Documented by: Magnesium Hydroxide (Magnesium Hydroxide Susp 30 Ml Udc) 5 ml PO DAILY PRN PRN Reason: Constipation Stop: 09/01/21 20:35 Melatonin (Melatonin 3 Mg Tab) 3 mg PO HS PRN PRN Reason: Sleep Stop: 09/09/21 21:27 Last Admin: 08/11/21 23:12 Dose: 3 mg Documented by: Metoclopramide HCl (Metoclopramide Hcl 10 Mg Tablet) 10 mg PO DAILY PRN PRN Reason: Nausea Stop: 09/01/21 20:35 Last Admin: 08/11/21 09:21 Dose: 10 mg Documented by: Metoprolol Tartrate (Metoprolol Tartrate 25 Mg Tab) 25 mg PO BID [facility] Stop: 09/03/21 08:59 Last Admin: 08/12/21 07:28 Dose: 25 mg Documented by: Miscellaneous (Carbohydrates For Hypoglycemia ) 15 - 30 gm PO UD PRN PRN Reason: Hypoglycemia Protocol Stop: 09/01/21 20:35 Nitroglycerin (Nitroglycerin Sl 0.4 Mg/Tab Tab) 0.4 mg SL Q5M PRN PRN Reason: Chest Pain Stop: 09/01/21 20:35 Pantoprazole Sodium (Pantoprazole 40 Mg Tab) 40 mg PO PM [facility] Stop: 09/01/21 20:59 Last Admin: 08/11/21 20:16 Dose: 40 mg Documented by: Ropinirole HCl (Ropinirole Hcl 2 Mg Tablet) 2 mg PO TID [facility] Stop: 09/01/21 20:59 Last Admin: 08/12/21 07:27 Dose: 2 mg Documented by: Rosuvastatin Calcium (Rosuvastatin Calcium 20 Mg Tab) 20 mg PO HS [facility] Stop: 09/01/21 20:59 Last Admin: 08/11/21 20:14 Dose: 20 mg Documented by: Sennosides (Senna 8.6 Mg Tab) 17.2 mg PO HS PRN PRN Reason: Constipation Last Admin: 08/12/21 07:28 Dose: 17.2 mg Documented by: Spironolactone (Spironolactone 12.5 Mg Tab) 12.5 mg PO DAILY [facility] Stop: 09/02/21 08:59 Last Admin: 08/12/21 07:28 Dose: 12.5 mg Documented by: Tramadol HCl (Tramadol Hcl 50 Mg Tablet) 50 mg PO TID PRN PRN Reason: MOD-SEVERE Pain4,5,6,7,8,9,10 Stop: 09/01/21 20:35 Last Admin: 08/10/21 22:23 Dose: 50 mg Documented by: Warfarin Sodium (Warfarin Sod 3 Mg Tab) 3 mg PO DAILY@1600 [facility] Stop: 09/09/21 15:59 Last Admin: 08/11/21 16:04 Dose: 3 mg Documented by:
[2021-08-12] MEDS: METOCLOPRAMIDE HCL 10 MG TABLET PO PRN (12:41)
[2021-08-12] MEDS: HYDROmorphone INJ 0.5 MG/0.5 ML SYR IV PRN ×2 (12:45→21:39)
[2021-08-12] MEDS: WARFARIN SOD 5 MG TAB PO SCH (15:33)
[2021-08-12] MEDS: PANTOprazole 40 MG TAB PO SCH (21:10)
[2021-08-12] MEDS: ROSUVASTATIN CALCIUM 20 MG TAB PO SCH (21:12)
[2021-08-13] MEDS: LEVOTHYROXINE SODIUM 100 MCG TABLET PO SCH (06:15)
[2021-08-13 06:24] LABS: Hematocrit (blood only) 27.7 % (37-47); Hemoglobin 8.5 g/dL (12.0-16.0)
[2021-08-13] MEDS: ALBUT/IPRATROP 3MG/0.5MG NEB 3 ML VIAL INH SCH ×4 (07:32→19:34)
[2021-08-13 07:40] LABS: INR 1.4 (0.9-1.1); Prothrombin Time 14.7 Seconds (9.0-12.0)
[2021-08-13] MEDS: CITALOPRAM 20 MG TAB PO SCH (08:06)
[2021-08-13] MEDS: FOLIC ACID 1 MG TAB PO SCH (08:06)
[2021-08-13] MEDS: METOCLOPRAMIDE HCL 10 MG TABLET PO PRN (08:06)
[2021-08-13] MEDS: SPIRONOLACTONE 12.5 MG TAB PO SCH (08:07)
[2021-08-13] MEDS: FUROSEMIDE 40 MG TAB PO SCH (08:07)
[2021-08-13] MEDS: rOPINIRole HCL 2 MG TABLET PO SCH ×3 (08:07→22:53)
[2021-08-13] MEDS: SENNA 8.6 MG TAB PO PRN (08:07)
[2021-08-13] MEDS: METOPROLOL TARTRATE 25 MG TAB PO SCH ×2 (08:07→22:52)
[2021-08-13] MEDS: guaiFENesin 600 MG TABCR PO SCH ×2 (08:08→22:50)
[2021-08-13] MEDS: DOXYCYCLINE HYCLATE 100 MG CAP PO SCH ×2 (08:08→22:50)
[2021-08-13] MEDS: DOCUSATE SODIUM 100 MG CAP PO SCH ×2 (08:08→22:49)
[2021-08-13] MEDS: HEPARIN SOD 5,000 UNIT/0.5 ML VIAL SQ SCH (08:09)
[2021-08-13] MEDS: AZELASTINE HCL 0.1% NASAL 200 SPRAYS/27,400 MCG BTL SCH ×2 (08:09→22:48)
[2021-08-13] MEDS: FLUTICASONE/VILANTEROL 100/25MCG 14 PUFFS/INHALER INH SCH (08:09)
[2021-08-13] MEDS: INSULIN ASPART PER UNIT SC SCH ×4 (08:12→23:39)
[2021-08-13] MEDS: BENZONATATE 100 MG CAPSULE PO SCH ×3 (08:12→22:49)
--- NOTE | 2021-08-13 08:28 | Hospitalist Progress Note ---
Date of Service August 13, 2021 Assessment & Plan (1) H/O mitral valve replacement with mechanical valve: (2) Nontraumatic intramuscular hematoma: Plan: 65 yo F w/ type 2 diabetes, currently not on any medications, chronic kidney disease stage III, hypothyroidism, hyperlipidemia, atrial fibrillation, tachybrady syndrome, history of syncope, status post loop recorder, chronic diastolic CHF, history of rheumatic heart disease, history of CAD, varicose veins of both legs, history of GERD, generalized osteoarthritis, restless legs syndrome, status post mechanical mitral valve replacement, history of TIA, history of recurrent falls, generalized anxiety disorder who was recently admitted 07/18-07/25 for shortness of breath and leg swelling improved with iv diuresis; also had EGD 07/24 for barium pill stuck in esophagus and was discharged on lovenox 60 bid along with coumadin because of subtherapeutic INR (h/o mechanical MVR) presented to the ED 08/02 with worsening left thigh pain for the past 2 days [facility]. She is being managed for the following: Admitting CT LLE 1. Acute intramuscular hemorrhage within the left iliacus, iliopsoas muscles and adductor muscles. Associated extraperitoneal hemorrhage. At least moderate intramuscular hemorrhage. Proximal extent of intramuscular hemorrhage not imaged on this exam. No active extravasation within visualized portions of the intramuscular hemorrhage. 2. Patent left common femoral and superficial femoral arteries. Intramuscular hematoma, non traumatic - CT reviewed as above- no active extravasation noted. No flank or abd tenderness to suspect Retroperitoneal bleed. - Hb at 10.1 at presentation, INR 2.7- received 1 mg of Vit K - Currently no compartment syndrome but will watch closely- (if so, will need urgent ortho evaluation and probably complete reversal of INR) - Trend H&H, transfuse as indicated --> Hb stable around 8.0, no erythema or increasing swelling. continue to monitor. INR. Pt has been on current dose of warfarin for long time per Pt. - PT/OT, likely DC to snf required. Pt declining any placement. 08/09 INR 7.1 - discussed w/ cardiology - hold coumadin, no vit. K 08/10 - INR 2.9 , however last night INR was 8.9 and vit. K given by night physician 08/11 INR 1.2 - increased warfarin dose, heparin subq ordered 08/12 INR 1.2 - back to 5 mg warfarin, incr. subq heparin, may need to consider IV heparin (likely w/o bolus) - will discuss w/ cardiology if no improvement in INR 08/13 INR 1.4 -H&H stable, will start IV heparin without bolus, discussed with cardiology. Continue to monitor INR and H&H Mechanical MV on coumadin Permanent Afib H/o embolic GA and TIA Goal INR 3-3.5. Moving forward will avoid Lovenox or subcutaneous heparin bridges. On lopressor increased to 25 mg PO BID per cardio 08/09 INR 7.1 - discussed w/ cardiology - hold coumadin, no vit. K ? Melena: had multiple formed stools overnight, dark colored per RN, fobt +ve, pt on anticoagulation for Mechanical MV valve. GI consulted - no need for endoscopy, Hgb stable, stools brown. Had endoscopy recently, pls see full detail in their report. transfuse for symptomatic anemia for Hb < 7.5 given cardiac history. Electrolytes abnormality: Monitor and replete electrolytes, maintain K greater than 4 and Mg greater than 2 Hyponatremia: Na 129, generally 130-133 at baseline. When on diet, increase protein content in diet, FR, and low sodium diet, continue to monitor. Consider Nephro if with worsening s/s. Leukocytosis:WBC elevated at admission, trended up to 16.75K, trending down, afebrile, procal minimally elevated but trended down. Likely reactive to hematoma. 08/05 CXR w/ no acute finding. UA reviewed, UCx coag negative staph not saprophytic, Bl Cx negative Staph UTI: 08/05 UCx +ve for coag negative staph not saprophytic, initially Vanco 08/07, now c/w w/ doxy Possible asthmatic bronchitis- started on breo and combivent prn by pulm during recent admission, continue w/ same. CKD3- Cr stable at baseline of around 1.4-1.6 Chronic diastolic CHF- on lasix and aldactone. Lasix (per cardio) upon DC: 40mg 3 days/wk and 80 mg 4 days/wk. BMP in 1 wk upon DC. BOBBY- on celexa DM-2- A1 7. not on insulin, SSI prn GERD- on PPI Dispo- PCU tele, expect dc in next 2-3 days if placement. Will need hemoglobin and INR to stabilize before discharging. Med telemetry. DVT ppx- coumadin Full Code. Admission and Anticipated Discharge Date Admission Date: August 02, 2021 Subjective Patient seen in follow-up of nontraumatic intramuscular hematoma of left thigh. Hx of mechanical mitral valve. Supratherapeutic INR, received vit.K overnight, then subtherapeutic Patient is sitting up in bed, on room air, in NAD. Pt denies any chest pain, shortness of breath, palpitations. Reports that her left leg is feeling better, she has more feeling in it now, able to ambulate somewhat. INR continues to be subtherapeutic, will start IV heparin. Review of Systems Review of Systems: All systems reviewed & are unremarkable except as noted in Subjective Physical Exam Physical Exam: GENERAL: Alert and oriented x3. NAD, on RA. HEENT: No pallor, no icterus. EOMI. Pupils equal, round and reactive to light. Oral mucosa moist. NECK: No JVD, no neck masses. HEART: S1 and S2 heard. irregular rate and rhythm. No murmur, no gallop. RESPIRATORY SYSTEM: Normal AP diameter. No accessory muscle use. CTA. ABDOMEN: Soft, bowel sounds present, nontender, no distention. NEURO: No facial droop. Speech is clear. Obeys simple commands. Moves extremities. EXTREMITIES: trace ble edema, no erythema seen. Lt swelling improving, bruise medial left thigh and left buttock/low back stable, No erythema. Tenderness/numbness and ROM improving. Distal NV status normal. Results & Data Results & Data ([facility]) Vital Signs (Past 12 Hours) Vital Signs Temp Pulse Pulse Resp BP Pulse Ox 08/13/21 07:52 36.8 C 74 18 108/63 95 08/13/21 07:33 68 16 96 08/13/21 03:04 36.8 C 65 18 115/67 99 08/13/21 02:47 84 08/13/21 00:37 36.7 C 77 18 102/58 L 98 Laboratory Results 08/13/21 08/13/21 08/13/21 Range/Units 07:36 05:55 05:55 Hgb 8.5 L (12.0-16.0) g/dL Hct 27.7 L (37-47) % PT 14.7 H (9.0-12.0) Seconds INR 1.4 H (0.9-1.1) POC Glucose 118 H (70-99) mg/dl 08/12/21 08/12/21 08/12/21 Range/Units 20:09 16:26 11:29 Hgb (12.0-16.0) g/dL Hct (37-47) % PT (9.0-12.0) Seconds INR (0.9-1.1) POC Glucose 189 H 130 H 133 H (70-99) mg/dl Medications Administered Current Inpatient Medications Acetaminophen (Acetaminophen 325 Mg Tab) 650 mg PO Q6H PRN PRN Reason: MILD Pain 1,2,3 Stop: 09/01/21 20:35 Albuterol (Albuterol Hfa 8 Gm Inhaler (Combivent Respimat P&T Subs)) 1 puffs INH Q6H PRN PRN Reason: SOB or wheezing Stop: 09/01/21 21:27 Albuterol (Albut/Ipratrop 3mg/0.5mg Neb 3 Ml Vial) 3 ml INH QIDR PRISCILA; Protocol Stop: 09/02/21 10:59 Last Admin: 08/13/21 07:32 Dose: 3 ml Documented by: Azelastine HCl (Azelastine Hcl 0.1% Nasal 200 Sprays/27,400 Mcg Btl) 2 sprays NA [facility] Stop: 09/02/21 08:59 Last Admin: 08/13/21 08:09 Dose: 2 sprays Documented by: Benzonatate (Benzonatate 100 Mg Capsule) 100 mg PO TID [facility] Stop: 09/05/21 20:59 Last Admin: 08/13/21 08:12 Dose: 100 mg Documented by: Citalopram Hydrobromide (Citalopram 20 Mg Tab) 10 mg PO DAILY [facility] Stop: 09/02/21 08:59 Last Admin: 08/13/21 08:06 Dose: 10 mg Documented by: Dextrose (Dextrose 50% 50 Ml Syringe) 25 - 50 ml IV UD PRN; Protocol PRN Reason: Hypoglycemia Protocol Stop: 09/01/21 20:35 Docusate Sodium (Docusate Sodium 100 Mg Cap) 100 mg PO BID [facility] Stop: 09/05/21 15:39 Last Admin: 08/13/21 08:08 Dose: 100 mg Documented by: Doxycycline Hyclate (Doxycycline Hyclate 100 Mg Cap) 100 mg PO BID [facility] Stop: 08/16/21 23:59 Last Admin: 08/13/21 08:08 Dose: 100 mg Documented by: Fluticasone/Vilanterol (Fluticasone/Vilanterol 100/25mcg 14 Puffs/Inhaler) 1 puffs INH DAILY [facility] Stop: 09/02/21 08:59 Last Admin: 08/13/21 08:09 Dose: 1 puffs Documented by: Folic Acid (Folic Acid 1 Mg Tab) 1 mg PO QAM [facility] Stop: 09/02/21 08:59 Last Admin: 08/13/21 08:06 Dose: 1 mg Documented by: Furosemide (Furosemide 40 Mg Tab) 40 mg PO QAM [facility] Stop: 09/03/21 09:14 Last Admin: 08/13/21 08:07 Dose: 40 mg Documented by: Glucagon (Glucagon For Inj 1 Mg Vial) 1 mg SQ UD PRN; Protocol PRN Reason: Hypoglycemia Protocol Stop: 09/01/21 20:35 Glucose (Glucose 10 Tabs/Tube) 4 - 8 tabs PO UD PRN; Protocol PRN Reason: Hypoglycemia Protocol Stop: 09/01/21 20:35 Glucose (Glucose 40% Gel 15 Gm Tube) 15 - 30 gm PO UD PRN; Protocol PRN Reason: Hypoglycemia Protocol Stop: 09/01/21 20:35 Guaifenesin (Guaifenesin 600 Mg Tabcr) 600 mg PO Q12 [facility] Stop: 09/01/21 20:59 Last Admin: 08/13/21 08:08 Dose: 600 mg Documented by: Heparin Sodium (Porcine) (Heparin Sod 5,000 Unit/0.5 Ml Vial) 7,500 units SQ Q12 [facility] Stop: 09/11/21 20:59 Last Admin: 08/13/21 08:09 Dose: 7,500 units Documented by: Hydromorphone HCl (Hydromorphone Inj 0.5 Mg/0.5 Ml Syr) 0.5 mg IV Q3H PRN PRN Reason: Pain Stop: 08/16/21 21:50 Last Admin: 08/12/21 21:39 Dose: 0.5 mg Documented by: Insulin Aspart (Insulin Aspart Per Unit) 0 units SC ACHS [facility]ISC[facility] Stop: 09/09/21 16:29 Last Admin: 08/13/21 08:12 Dose: Not Given Documented by: Ipratropium [place] (Ipratropium Hfa Inhaler (Combivent Respimat P&T Subs)) 1 puffs INH Q6H PRN PRN Reason: SOB or wheezing Stop: 09/01/21 21:27 Levothyroxine Sodium (Levothyroxine Sodium 100 Mcg Tablet) 100 mcg PO DAILYBB [facility] Stop: 09/02/21 06:29 Last Admin: 08/13/21 06:15 Dose: 100 mcg Documented by: Magnesium Hydroxide (Magnesium Hydroxide Susp 30 Ml Udc) 5 ml PO DAILY PRN PRN Reason: Constipation Stop: 09/01/21 20:35 Melatonin (Melatonin 3 Mg Tab) 3 mg PO HS PRN PRN Reason: Sleep Stop: 09/09/21 21:27 Last Admin: 08/11/21 23:12 Dose: 3 mg Documented by: Metoclopramide HCl (Metoclopramide Hcl 10 Mg Tablet) 10 mg PO DAILY PRN PRN Reason: Nausea Stop: 09/01/21 20:35 Last Admin: 08/13/21 08:06 Dose: 10 mg Documented by: Metoprolol Tartrate (Metoprolol Tartrate 25 Mg Tab) 25 mg PO BID [facility] Stop: 09/03/21 08:59 Last Admin: 08/13/21 08:07 Dose: 25 mg Documented by: Miscellaneous (Carbohydrates For Hypoglycemia ) 15 - 30 gm PO UD PRN PRN Reason: Hypoglycemia Protocol Stop: 09/01/21 20:35 Nitroglycerin (Nitroglycerin Sl 0.4 Mg/Tab Tab) 0.4 mg SL Q5M PRN PRN Reason: Chest Pain Stop: 09/01/21 20:35 Pantoprazole Sodium (Pantoprazole 40 Mg Tab) 40 mg PO PM [facility] Stop: 09/01/21 20:59 Last Admin: 08/12/21 21:10 Dose: 40 mg Documented by: Ropinirole HCl (Ropinirole Hcl 2 Mg Tablet) 2 mg PO TID [facility] Stop: 09/01/21 20:59 Last Admin: 08/13/21 08:07 Dose: 2 mg Documented by: Rosuvastatin Calcium (Rosuvastatin Calcium 20 Mg Tab) 20 mg PO HS [facility] Stop: 09/01/21 20:59 Last Admin: 08/12/21 21:12 Dose: 20 mg Documented by: Sennosides (Senna 8.6 Mg Tab) 17.2 mg PO HS PRN PRN Reason: Constipation Last Admin: 08/13/21 08:07 Dose: 17.2 mg Documented by: Spironolactone (Spironolactone 12.5 Mg Tab) 12.5 mg PO DAILY [facility] Stop: 09/02/21 08:59 Last Admin: 08/13/21 08:07 Dose: 12.5 mg Documented by: Tramadol HCl (Tramadol Hcl 50 Mg Tablet) 50 mg PO TID PRN PRN Reason: MOD-SEVERE Pain4,5,6,7,8,9,10 Stop: 09/01/21 20:35 Last Admin: 08/10/21 22:23 Dose: 50 mg Documented by: Warfarin Sodium (Warfarin Sod 5 Mg Tab) 5 mg PO DAILY@1600 [facility] Stop: 09/11/21 15:59 Last Admin: 08/12/21 15:33 Dose: 5 mg Documented by:
[2021-08-13] MEDS ORDERED: Heparin IV Adult Wt-Based Low-Dose *NO* Bolus Protocol IV SCH (10:00)
[2021-08-13 11:13] LABS: Basophils # (auto) 0.01 K/uL (0-0.2); Basophils % (auto) 0.1 %; Eosinophils # (auto) 0.19 K/uL (0-0.5); Eosinophils % (auto) 2.4 %; Hematocrit (blood only) 29.1 % (37-47); Hemoglobin 8.8 g/dL (12.0-16.0); Immature Granulocytes # (auto) 0.09 K/uL (0.00-0.02); Immature Granulocytes % (auto) 1.1 %; Lymphocytes # (auto) 0.61 K/uL (1.2-3.4); Lymphocytes % (auto) 7.8 %; Mean Corpuscular Hemoglobin 26.1 pg (25-34); Mean Corpuscular Volume 86.4 fL (80-100); Monocytes # (auto) 0.48 K/uL (0.11-0.59); Monocytes % (auto) 6.1 %; Neutrophils # (auto) 6.45 K/uL (1.4-6.5); Neutrophils % (auto) 82.5 %; Platelet Count 263 K/uL (130-400); RDW Standard Deviation 55.8 fL (36.4-46.3); Red Blood Count 3.37 M/uL (4.2-5.4); White Blood Count 7.83 K/uL (4.8-10.8)
[2021-08-13 11:15] LABS: Mean Corpuscular Hgb Conc 30.2 g/dL (32-36)
[2021-08-13 11:20] LABS: INR 1.4 (0.9-1.1); Partial Thromboplastin Ratio 1.6; Partial Thromboplastin Time 44.4 Seconds (21.0-31.0); Prothrombin Time 15.1 Seconds (9.0-12.0)
[2021-08-13] MEDS: HYDROmorphone INJ 0.5 MG/0.5 ML SYR IV PRN ×2 (11:23→20:55)
[2021-08-13] MEDS: HEPARIN SODIUM/DEXTROSE 25,000 UNITS/500 ML BAG IV SCH (11:25)
[2021-08-13] MEDS: WARFARIN SOD 5 MG TAB PO SCH (15:44)
[2021-08-13 18:16] LABS: Partial Thromboplastin Ratio 3.2
[2021-08-13 18:32] LABS: Partial Thromboplastin Time 87.7 Seconds (21.0-31.0)
[2021-08-13] MEDS: NITROGLYCERIN SL 0.4 MG/TAB TAB SL PRN ×2 (21:52→22:47)
[2021-08-13] MEDS: PANTOprazole 40 MG TAB PO SCH (22:52)
[2021-08-13] MEDS: MELATONIN 3 MG TAB PO PRN (22:53)
[2021-08-13] MEDS: ROSUVASTATIN CALCIUM 20 MG TAB PO SCH (22:53)
--- NOTE | 2021-08-14 01:35 | Communication Note ---
Date of Service: August 14, 2021 Chest pain complaints similar to heart attack in the past as per patient as per RN. Some improvement with nitroglycerin administration. EKG as per my interpretation: Rate 85, A. fib, LAD, LAFB, T wave flattening septal leads 2nd high-sensitivity troponin 559 AP NSTEMI hx CAD Aspirin for CAD prevention Continue IV heparin for patient A. fib We will request AM provider to update cardiology. N.p.o./hold Coumadin until patient seen by cardiology.
[2021-08-14] MEDS: ASPIRIN 81 MG ECTAB PO SCH (02:06)
[2021-08-14 02:19] LABS: Hematocrit (blood only) 26.7 % (37-47); Hemoglobin 8.2 g/dL (12.0-16.0); Mean Corpuscular Hemoglobin 26.5 pg (25-34); Mean Corpuscular Hgb Conc 30.7 g/dL (32-36); Mean Corpuscular Volume 86.1 fL (80-100); Mean Platelet Volume 9.6 fL (7.4-10.4); Platelet Count 227 K/uL (130-400); RDW Standard Deviation 55.3 fL (36.4-46.3)
[2021-08-14 02:44] LABS: INR 1.8 (0.9-1.1); Partial Thromboplastin Ratio 3.4; Prothrombin Time 18.2 Seconds (9.0-12.0)
[2021-08-14 02:58] LABS: BUN Creatinine Ratio 17.6 (10-20); Calcium 9.7 mg/dl (8.5-10.1); Chol HDL Ratio 2.5 (0-5); Creatinine Clr Calc Pharmacy 32.1 ml/min; Est GFR (African American) 48.4 ml/min; Est GFR (Non-African American) 41.7 ml/min; Phosphorus 3.5 mg/dl (2.5-4.9); Potassium 3.7 mmol/L (3.5-5.1)
[2021-08-14 02:59] LABS: Partial Thromboplastin Time 92.7 Seconds (21.0-31.0)
[2021-08-14] MEDS: LEVOTHYROXINE SODIUM 100 MCG TABLET PO SCH (06:13)
[2021-08-14] MEDS: ALBUT/IPRATROP 3MG/0.5MG NEB 3 ML VIAL INH SCH ×4 (07:05→18:57)
--- NOTE | 2021-08-14 08:29 | Electrocardiogram Report ---
Test Reason : Blood Pressure : / mmHG Vent. Rate : 086 BPM Atrial Rate : 077 BPM P-R Int : 000 ms QRS Dur : 094 ms QT Int : 376 ms P-R-T Axes : 000 -34 073 degrees QTc Int : 449 ms Poor data quality, interpretation may be adversely affected Atrial fibrillation Left axis deviation Pulmonary disease pattern Incomplete right bundle branch block Abnormal ECG When compared with ECG of 13-AUG-2021 20:48, Incomplete right bundle branch block is now Present Confirmed by Jose Roland ([id number]) on 08/14/2021 8:28:53 AM Referred By: REFERRED SELF Confirmed By:Jose Roland
[2021-08-14] MEDS: METOPROLOL TARTRATE 25 MG TAB PO SCH ×2 (08:39→19:50)
[2021-08-14] MEDS: INSULIN ASPART PER UNIT SC SCH ×4 (08:39→19:59)
[2021-08-14] MEDS: SPIRONOLACTONE 12.5 MG TAB PO SCH (08:39)
[2021-08-14] MEDS: CITALOPRAM 20 MG TAB PO SCH (08:40)
[2021-08-14] MEDS: FOLIC ACID 1 MG TAB PO SCH (08:40)
[2021-08-14] MEDS: FUROSEMIDE 40 MG TAB PO SCH (08:41)
[2021-08-14] MEDS: guaiFENesin 600 MG TABCR PO SCH ×2 (08:42→19:50)
[2021-08-14] MEDS: METOCLOPRAMIDE HCL 10 MG TABLET PO PRN (08:42)
[2021-08-14] MEDS: rOPINIRole HCL 2 MG TABLET PO SCH ×3 (08:42→19:52)
[2021-08-14] MEDS: FLUTICASONE/VILANTEROL 100/25MCG 14 PUFFS/INHALER INH SCH (08:43)
[2021-08-14] MEDS: DOXYCYCLINE HYCLATE 100 MG CAP PO SCH (08:43)
[2021-08-14] MEDS: AZELASTINE HCL 0.1% NASAL 200 SPRAYS/27,400 MCG BTL SCH ×2 (08:44→19:48)
[2021-08-14] MEDS: BENZONATATE 100 MG CAPSULE PO SCH ×3 (08:46→19:48)
[2021-08-14] MEDS: DOCUSATE SODIUM 100 MG CAP PO SCH ×2 (08:46→19:49)
--- NOTE | 2021-08-14 09:07 | Electrocardiogram Report ---
Test Reason : Blood Pressure : / mmHG Vent. Rate : 062 BPM Atrial Rate : 063 BPM P-R Int : 000 ms QRS Dur : 092 ms QT Int : 444 ms P-R-T Axes : 000 -36 003 degrees QTc Int : 450 ms Poor data quality, interpretation may be adversely affected Atrial fibrillation Left axis deviation Incomplete right bundle branch block Abnormal ECG When compared with ECG of 13-AUG-2021 20:50, No significant change Confirmed by Jose Roland ([id number]) on 08/14/2021 9:07:05 AM Referred By: REFERRED SELF Confirmed By:Jose Roland
--- NOTE | 2021-08-14 10:15 | Hospitalist Progress Note ---
Date of Service August 14, 2021 Assessment & Plan (1) H/O mitral valve replacement with mechanical valve: (2) Nontraumatic intramuscular hematoma: Plan: 65 yo F w/ type 2 diabetes, currently not on any medications, chronic kidney disease stage III, hypothyroidism, hyperlipidemia, atrial fibrillation, tachybrady syndrome, history of syncope, status post loop recorder, chronic diastolic CHF, history of rheumatic heart disease, history of CAD, varicose veins of both legs, history of GERD, generalized osteoarthritis, restless legs syndrome, status post mechanical mitral valve replacement, history of TIA, history of recurrent falls, generalized anxiety disorder who was recently admitted 07/18-07/25 for shortness of breath and leg swelling improved with iv diuresis; also had EGD 07/24 for barium pill stuck in esophagus and was discharged on lovenox 60 bid along with coumadin because of subtherapeutic INR (h/o mechanical MVR) presented to the ED 08/02 with worsening left thigh pain for the past 2 days [employer]. She is being managed for the following: Admitting CT LLE 1. Acute intramuscular hemorrhage within the left iliacus, iliopsoas muscles and adductor muscles. Associated extraperitoneal hemorrhage. At least moderate intramuscular hemorrhage. Proximal extent of intramuscular hemorrhage not imaged on this exam. No active extravasation within visualized portions of the intramuscular hemorrhage. 2. Patent left common femoral and superficial femoral arteries. Intramuscular hematoma, non traumatic - CT reviewed as above- no active extravasation noted. No flank or abd tenderness to suspect Retroperitoneal bleed. - Hb at 10.1 at presentation, INR 2.7- received 1 mg of Vit K - Currently no compartment syndrome but will watch closely- (if so, will need urgent ortho evaluation and probably complete reversal of INR) - Trend H&H, transfuse as indicated --> Hb stable around 8.0, no erythema or increasing swelling. continue to monitor. INR. Pt has been on current dose of warfarin for long time per Pt. - PT/OT, likely DC to snf required. Pt declining any placement. 08/09 INR 7.1 - discussed w/ cardiology - hold coumadin, no vit. K 08/10 - INR 2.9 , however last night INR was 8.9 and vit. K given by night physician 08/11 INR 1.2 - increased warfarin dose, heparin subq ordered 08/12 INR 1.2 - back to 5 mg warfarin, incr. subq heparin, may need to consider IV heparin (likely w/o bolus) - will discuss w/ cardiology if no improvement in INR 08/13 INR 1.4 -H&H stable, will start IV heparin without bolus, discussed with cardiology. Continue to monitor INR and H&H 08/14 INR 1.8, had been on IV heparin, had chest pain overnight and elevation of troponin. Discussed with cardiology, continue IV heparin bridge until INR at go al. Aspirin started overnight. Mechanical MV on coumadin Permanent Afib H/o embolic SC and TIA Goal INR 3-3.5. Moving forward will avoid Lovenox or subcutaneous heparin bridges. On lopressor increased to 25 mg PO BID per cardio 08/09 INR 7.1 - discussed w/ cardiology - hold coumadin, no vit. K ? Melena: had multiple formed stools overnight, dark colored per RN, fobt +ve, pt on anticoagulation for Mechanical MV valve. GI consulted - no need for endoscopy, Hgb stable, stools brown. Had endoscopy recently, pls see full detail in their report. transfuse for symptomatic anemia for Hb < 7.5 given cardiac history. Electrolytes abnormality: Monitor and replete electrolytes, maintain K greater than 4 and Mg greater than 2 Hyponatremia: Na 129, generally 130-133 at baseline. When on diet, increase protein content in diet, FR, and low sodium diet, continue to monitor. Consider Nephro if with worsening s/s. Leukocytosis:WBC elevated at admission, trended up to 16.75K, trending down, afebrile, procal minimally elevated but trended down. Likely reactive to hematoma. 08/05 CXR w/ no acute finding. UA reviewed, UCx coag negative staph not saprophytic, Bl Cx negative Staph UTI: 08/05 UCx +ve for coag negative staph not saprophytic, initially Vanco 08/07, then c/w w/ doxy (finished treatment) Possible asthmatic bronchitis- started on breo and combivent prn by pulm during recent admission, continue w/ same. CKD3- Cr stable at baseline of around 1.4-1.6 Chronic diastolic CHF- on lasix and aldactone. Lasix (per cardio) upon DC: 40mg 3 days/wk and 80 mg 4 days/wk. BMP in 1 wk upon DC. BOBBY- on celexa DM-2- A1 7. not on insulin, SSI prn GERD- on PPI Dispo- PCU tele, expect dc in next 2-3 days if placement. Will need hemoglobin and INR to stabilize before discharging. Med telemetry. DVT ppx- coumadin Full Code. Admission and Anticipated Discharge Date Admission Date: August 02, 2021 Subjective Patient seen in follow-up of nontraumatic intramuscular hematoma of left thigh. Hx of mechanical mitral valve. Supratherapeutic INR, received vit.K overnight, then subtherapeutic Patient is sitting up in bed, on room air, in NAD. Overnight patient had chest pain, and elevation of troponin. She has been on IV heparin due to subtherapeutic INR. Currently denies any chest pain, palpitations, shortness of breath. Discussed further with cardiology (08/14), continue current regimen, heparin bridging until INR at goal. Reports that her left leg is feeling better, she has more feeling in it now, able to ambulate somewhat. INR continues to be subtherapeutic, continue IV heparin as above. Review of Systems Review of Systems: All systems reviewed & are unremarkable except as noted in Subjective Physical Exam Physical Exam: GENERAL: Alert and oriented x3. NAD, on RA. HEENT: No pallor, no icterus. EOMI. Pupils equal, round and reactive to light. Oral mucosa moist. NECK: No JVD, no neck masses. HEART: S1 and S2 heard. irregular rate and rhythm. No murmur, no gallop. RESPIRATORY SYSTEM: Normal AP diameter. No accessory muscle use. CTA. ABDOMEN: Soft, bowel sounds present, nontender, no distention. NEURO: No facial droop. Speech is clear. Obeys simple commands. Moves extremities. EXTREMITIES: trace ble edema, no erythema seen. Lt swelling improving, bruise medial left thigh and left buttock/low back stable, No erythema. Tenderness/numbness and ROM improving. Distal NV status normal. Results & Data Results & Data ([facility]) Vital Signs (Past 12 Hours) Vital Signs Temp Pulse Pulse Resp BP Pulse Ox 08/14/21 07:49 36.6 C 84 20 108/56 L 98 08/14/21 07:38 66 08/14/21 07:05 75 17 92 08/14/21 02:09 36.6 C 76 18 120/61 98 08/13/21 22:46 36.8 C 87 18 110/62 94 08/13/21 22:15 90 Laboratory Results 08/14/21 08/14/21 08/14/21 Range/Units 07:21 02:03 02:03 WBC (4.8-10.8) K/uL RBC (4.2-5.4) M/uL Hgb (12.0-16.0) g/dL Hct (37-47) % MCV (80-100) fL MCH (25-34) pg MCHC (32-36) g/dL RDW Std Deviation (36.4-46.3) fL RDW Coeff of Courtney (11.5-14.5) % Plt Count (130-400) K/uL MPV (7.4-10.4) fL Immature Gran % (Auto) % Neut % (Auto) % Lymph % (Auto) % Hartley % (Auto) % Eos % (Auto) % Baso % (Auto) % Neut # (Auto) (1.4-6.5) K/uL Lymph # (Auto) (1.2-3.4) K/uL Hartley # (Auto) (0.11-0.59) K/uL Eos # (Auto) (0-0.5) K/uL Baso # (Auto) (0-0.2) K/uL Immature Gran # (Auto) (0.00-0.02) K/uL PT 18.2 H (9.0-12.0) Seconds INR 1.8 H (0.9-1.1) APTT 92.7 H* (21.0-31.0) Seconds PTT Ratio 3.4 Sodium 134 L (136-145) mmol/L Potassium 3.7 (3.5-5.1) mmol/L Chloride 99 (98-107) mmol/L Carbon Dioxide 30 (21-32) mmol/L Anion Gap 5 (3-11) BUN 23 (6-23) mg/dl Creatinine 1.31 H (0.6-1.2) mg/dl Est Cr Clr Drug Dosing 32.1 ml/min Est GFR ( Amer) 48.4 ml/min Est GFR (Non-Af Amer) 41.7 ml/min BUN/Creatinine Ratio 17.6 (10-20) Glucose 118 H (70-99(Fasting)) mg/dl POC Glucose 129 H (70-99) mg/dl Calcium 9.7 (8.5-10.1) mg/dl Phosphorus 3.5 (2.5-4.9) mg/dl Magnesium 2.0 (1.7-2.4) mg/dl Troponin I High Sens 975.0 H* D (0-14) pg/ml Triglycerides 62 (0-150) mg/dl Cholesterol 119 (0-200) mg/dl LDL Cholesterol, Calc 60 mg/dl VLDL Cholesterol, Calc 12 (0-30) mg/dl HDL Cholesterol 47 mg/dl Cholesterol/HDL Ratio 2.5 (0-5) 08/14/21 08/14/21 08/13/21 Range/Units 02:03 00:44 21:36 WBC 6.90 (4.8-10.8) K/uL RBC 3.10 L (4.2-5.4) M/uL Hgb 8.2 L (12.0-16.0) g/dL Hct 26.7 L (37-47) % MCV 86.1 (80-100) fL MCH 26.5 (25-34) pg MCHC 30.7 L (32-36) g/dL RDW Std Deviation 55.3 H (36.4-46.3) fL RDW Coeff of Courtney 18.0 H (11.5-14.5) % Plt Count 227 (130-400) K/uL MPV 9.6 (7.4-10.4) fL Immature Gran % (Auto) % Neut % (Auto) % Lymph % (Auto) % Hartley % (Auto) % Eos % (Auto) % Baso % (Auto) % Neut # (Auto) (1.4-6.5) K/uL Lymph # (Auto) (1.2-3.4) K/uL Hartley # (Auto) (0.11-0.59) K/uL Eos # (Auto) (0-0.5) K/uL Baso # (Auto) (0-0.2) K/uL Immature Gran # (Auto) (0.00-0.02) K/uL PT (9.0-12.0) Seconds INR (0.9-1.1) APTT (21.0-31.0) Seconds PTT Ratio Sodium (136-145) mmol/L Potassium (3.5-5.1) mmol/L Chloride (98-107) mmol/L Carbon Dioxide (21-32) mmol/L Anion Gap (3-11) BUN (6-23) mg/dl Creatinine (0.6-1.2) mg/dl Est Cr Clr Drug Dosing ml/min Est GFR ( Amer) ml/min Est GFR (Non-Af Amer) ml/min BUN/Creatinine Ratio (10-20) Glucose (70-99(Fasting)) mg/dl POC Glucose (70-99) mg/dl Calcium (8.5-10.1) mg/dl Phosphorus (2.5-4.9) mg/dl Magnesium (1.7-2.4) mg/dl Troponin I High Sens 559.8 H* D 8.6 (0-14) pg/ml Triglycerides (0-150) mg/dl Cholesterol (0-200) mg/dl LDL Cholesterol, Calc mg/dl VLDL Cholesterol, Calc (0-30) mg/dl HDL Cholesterol mg/dl Cholesterol/HDL Ratio (0-5) 08/13/21 08/13/21 08/13/21 Range/Units 20:15 17:36 16:58 WBC (4.8-10.8) K/uL RBC (4.2-5.4) M/uL Hgb (12.0-16.0) g/dL Hct (37-47) % MCV (80-100) fL MCH (25-34) pg MCHC (32-36) g/dL RDW Std Deviation (36.4-46.3) fL RDW Coeff of Courtney (11.5-14.5) % Plt Count (130-400) K/uL MPV (7.4-10.4) fL Immature Gran % (Auto) % Neut % (Auto) % Lymph % (Auto) % Hartley % (Auto) % Eos % (Auto) % Baso % (Auto) % Neut # (Auto) (1.4-6.5) K/uL Lymph # (Auto) (1.2-3.4) K/uL Hartley # (Auto) (0.11-0.59) K/uL Eos # (Auto) (0-0.5) K/uL Baso # (Auto) (0-0.2) K/uL Immature Gran # (Auto) (0.00-0.02) K/uL PT (9.0-12.0) Seconds INR (0.9-1.1) APTT 87.7 H* (21.0-31.0) Seconds PTT Ratio 3.2 Sodium (136-145) mmol/L Potassium (3.5-5.1) mmol/L Chloride (98-107) mmol/L Carbon Dioxide (21-32) mmol/L Anion Gap (3-11) BUN (6-23) mg/dl Creatinine (0.6-1.2) mg/dl Est Cr Clr Drug Dosing ml/min Est GFR ( Amer) ml/min Est GFR (Non-Af Amer) ml/min BUN/Creatinine Ratio (10-20) Glucose (70-99(Fasting)) mg/dl POC Glucose 179 H 138 H (70-99) mg/dl Calcium (8.5-10.1) mg/dl Phosphorus (2.5-4.9) mg/dl Magnesium (1.7-2.4) mg/dl Troponin I High Sens (0-14) pg/ml Triglycerides (0-150) mg/dl Cholesterol (0-200) mg/dl LDL Cholesterol, Calc mg/dl VLDL Cholesterol, Calc (0-30) mg/dl HDL Cholesterol mg/dl Cholesterol/HDL Ratio (0-5) 08/13/21 08/13/21 08/13/21 Range/Units 11:34 10:20 10:20 WBC 7.83 (4.8-10.8) K/uL RBC 3.37 L (4.2-5.4) M/uL Hgb 8.8 L (12.0-16.0) g/dL Hct 29.1 L (37-47) % MCV 86.4 (80-100) fL MCH 26.1 (25-34) pg MCHC 30.2 L (32-36) g/dL RDW Std Deviation 55.8 H (36.4-46.3) fL RDW Coeff of Courtney 18.0 H (11.5-14.5) % Plt Count 263 (130-400) K/uL MPV 10.0 (7.4-10.4) fL Immature Gran % (Auto) 1.1 % Neut % (Auto) 82.5 % Lymph % (Auto) 7.8 % Hartley % (Auto) 6.1 % Eos % (Auto) 2.4 % Baso % (Auto) 0.1 % Neut # (Auto) 6.45 (1.4-6.5) K/uL Lymph # (Auto) 0.61 L (1.2-3.4) K/uL Hartley # (Auto) 0.48 (0.11-0.59) K/uL Eos # (Auto) 0.19 (0-0.5) K/uL Baso # (Auto) 0.01 (0-0.2) K/uL Immature Gran # (Auto) 0.09 H (0.00-0.02) K/uL PT 15.1 H (9.0-12.0) Seconds INR 1.4 H (0.9-1.1) APTT 44.4 H (21.0-31.0) Seconds PTT Ratio 1.6 Sodium (136-145) mmol/L Potassium (3.5-5.1) mmol/L Chloride (98-107) mmol/L Carbon Dioxide (21-32) mmol/L Anion Gap (3-11) BUN (6-23) mg/dl Creatinine (0.6-1.2) mg/dl Est Cr Clr Drug Dosing ml/min Est GFR ( Amer) ml/min Est GFR (Non-Af Amer) ml/min BUN/Creatinine Ratio (10-20) Glucose (70-99(Fasting)) mg/dl POC Glucose 118 H (70-99) mg/dl Calcium (8.5-10.1) mg/dl Phosphorus (2.5-4.9) mg/dl Magnesium (1.7-2.4) mg/dl Troponin I High Sens (0-14) pg/ml Triglycerides (0-150) mg/dl Cholesterol (0-200) mg/dl LDL Cholesterol, Calc mg/dl VLDL Cholesterol, Calc (0-30) mg/dl HDL Cholesterol mg/dl Cholesterol/HDL Ratio (0-5) Medications Administered Current Inpatient Medications Acetaminophen (Acetaminophen 325 Mg Tab) 650 mg PO Q6H PRN PRN Reason: MILD Pain 1,2,3 Stop: 09/01/21 20:35 Albuterol (Albuterol Hfa 8 Gm Inhaler (Combivent Respimat P&T Subs)) 1 puffs INH Q6H PRN PRN Reason: SOB or wheezing Stop: 09/01/21 21:27 Albuterol (Albut/Ipratrop 3mg/0.5mg Neb 3 Ml Vial) 3 ml INH QIDR [facility]; Protocol Stop: 09/02/21 10:59 Last Admin: 08/14/21 07:05 Dose: 3 ml Documented by: Aspirin (Aspirin 81 Mg Ectab) 81 mg PO QAM [facility] Stop: 09/13/21 01:34 Last Admin: 08/14/21 02:06 Dose: 81 mg Documented by: Azelastine HCl (Azelastine Hcl 0.1% Nasal 200 Sprays/27,400 Mcg Btl) 2 sprays NA AMHS [facility] Stop: 09/02/21 08:59 Last Admin: 08/14/21 08:44 Dose: 2 sprays Documented by: Benzonatate (Benzonatate 100 Mg Capsule) 100 mg PO TID [facility] Stop: 09/05/21 20:59 Last Admin: 08/14/21 08:46 Dose: 100 mg Documented by: Citalopram Hydrobromide (Citalopram 20 Mg Tab) 10 mg PO DAILY [facility] Stop: 09/02/21 08:59 Last Admin: 08/14/21 08:40 Dose: 10 mg Documented by: Dextrose (Dextrose 50% 50 Ml Syringe) 25 - 50 ml IV UD PRN; Protocol PRN Reason: Hypoglycemia Protocol Stop: 09/01/21 20:35 Docusate Sodium (Docusate Sodium 100 Mg Cap) 100 mg PO BID [facility] Stop: 09/05/21 15:39 Last Admin: 08/14/21 08:46 Dose: 100 mg Documented by: Doxycycline Hyclate (Doxycycline Hyclate 100 Mg Cap) 100 mg PO BID [facility] Stop: 08/16/21 23:59 Last Admin: 08/14/21 08:43 Dose: 100 mg Documented by: Fluticasone/Vilanterol (Fluticasone/Vilanterol 100/25mcg 14 Puffs/Inhaler) 1 puffs INH DAILY [facility] Stop: 09/02/21 08:59 Last Admin: 08/14/21 08:43 Dose: 1 puffs Documented by: Folic Acid (Folic Acid 1 Mg Tab) 1 mg PO QAM [facility] Stop: 09/02/21 08:59 Last Admin: 08/14/21 08:40 Dose: 1 mg Documented by: Furosemide (Furosemide 40 Mg Tab) 40 mg PO QAM [facility] Stop: 09/03/21 09:14 Last Admin: 08/14/21 08:41 Dose: 40 mg Documented by: Glucagon (Glucagon For Inj 1 Mg Vial) 1 mg SQ UD PRN; Protocol PRN Reason: Hypoglycemia Protocol Stop: 09/01/21 20:35 Glucose (Glucose 10 Tabs/Tube) 4 - 8 tabs PO UD PRN; Protocol PRN Reason: Hypoglycemia Protocol Stop: 09/01/21 20:35 Glucose (Glucose 40% Gel 15 Gm Tube) 15 - 30 gm PO UD PRN; Protocol PRN Reason: Hypoglycemia Protocol Stop: 09/01/21 20:35 Guaifenesin (Guaifenesin 600 Mg Tabcr) 600 mg PO Q12 [facility] Stop: 09/01/21 20:59 Last Admin: 08/14/21 08:42 Dose: 600 mg Documented by: Hydromorphone HCl (Hydromorphone Inj 0.5 Mg/0.5 Ml Syr) 0.5 mg IV Q3H PRN PRN Reason: Pain Stop: 08/16/21 21:50 Last Admin: 08/13/21 20:55 Dose: 0.5 mg Documented by: Heparin Sodium/Dextrose (Heparin Sodium/Dextrose) 25,000 units in 500 mls @ 8 mls/hr IV .Q24H PRISCILA; Protocol Stop: 09/12/21 09:44 Last Titration: 08/14/21 07:11 Dose: 400 units/hr, 8 mls/hr Documented by: Insulin Aspart (Insulin Aspart Per Unit) 0 units SC ACHS [facility] Stop: 09/09/21 16:29 Last Admin: 08/14/21 08:39 Dose: Not Given Documented by: Ipratropium [employer] Mdl (Ipratropium Hfa Inhaler (Combivent Respimat P&T Subs)) 1 puffs INH Q6H PRN PRN Reason: SOB or wheezing Stop: 09/01/21 21:27 Levothyroxine Sodium (Levothyroxine Sodium 100 Mcg Tablet) 100 mcg PO DAILYBB [facility] Stop: 09/02/21 06:29 Last Admin: 08/14/21 06:13 Dose: 100 mcg Documented by: Magnesium Hydroxide (Magnesium Hydroxide Susp 30 Ml Udc) 5 ml PO DAILY PRN PRN Reason: Constipation Stop: 09/01/21 20:35 Melatonin (Melatonin 3 Mg Tab) 3 mg PO HS PRN PRN Reason: Sleep Stop: 09/09/21 21:27 Last Admin: 08/13/21 22:53 Dose: 3 mg Documented by: Metoclopramide HCl (Metoclopramide Hcl 10 Mg Tablet) 10 mg PO DAILY PRN PRN Reason: Nausea Stop: 09/01/21 20:35 Last Admin: 08/14/21 08:42 Dose: 10 mg Documented by: Metoprolol Tartrate (Metoprolol Tartrate 25 Mg Tab) 25 mg PO BID [facility] Stop: 09/03/21 08:59 Last Admin: 08/14/21 08:39 Dose: 25 mg Documented by: Miscellaneous (Carbohydrates For Hypoglycemia ) 15 - 30 gm PO UD PRN PRN Reason: Hypoglycemia Protocol Stop: 09/01/21 20:35 Nitroglycerin (Nitroglycerin Sl 0.4 Mg/Tab Tab) 0.4 mg SL Q5M PRN PRN Reason: Chest Pain Stop: 09/01/21 20:35 Last Admin: 08/13/21 22:47 Dose: 0.4 mg Documented by: Pantoprazole Sodium (Pantoprazole 40 Mg Tab) 40 mg PO PM [facility] Stop: 09/01/21 20:59 Last Admin: 08/13/21 22:52 Dose: 40 mg Documented by: Ropinirole HCl (Ropinirole Hcl 2 Mg Tablet) 2 mg PO TID [facility] Stop: 09/01/21 20:59 Last Admin: 08/14/21 08:42 Dose: 2 mg Documented by: Rosuvastatin Calcium (Rosuvastatin Calcium 20 Mg Tab) 20 mg PO HS [facility] Stop: 09/01/21 20:59 Last Admin: 08/13/21 22:53 Dose: 20 mg Documented by: Sennosides (Senna 8.6 Mg Tab) 17.2 mg PO HS PRN PRN Reason: Constipation Last Admin: 08/13/21 08:07 Dose: 17.2 mg Documented by: Spironolactone (Spironolactone 12.5 Mg Tab) 12.5 mg PO DAILY [facility] Stop: 09/02/21 08:59 Last Admin: 08/14/21 08:39 Dose: 12.5 mg Documented by: Tramadol HCl (Tramadol Hcl 50 Mg Tablet) 50 mg PO TID PRN PRN Reason: MOD-SEVERE Pain4,5,6,7,8,9,10 Stop: 09/01/21 20:35 Last Admin: 08/10/21 22:23 Dose: 50 mg Documented by: Warfarin Sodium (Warfarin Sod 5 Mg Tab) 5 mg PO DAILY@1600 [facility] Stop: 09/11/21 15:59 Last Admin: 08/13/21 15:44 Dose: 5 mg Documented by:
--- NOTE | 2021-08-14 10:18 | Cardiology Progress Note ---
Date of Service August 14, 2021 Assessment & Plan (1) Nontraumatic intramuscular hematoma: (2) Hematoma of left thigh: (3) Rheumatic heart disease: (4) H/O mitral valve replacement with mechanical valve: (5) Chronic diastolic CHF (congestive heart failure): (6) History of CVA (cerebrovascular accident): (7) Myocardial infarction: (8) Permanent atrial fibrillation: Plan: Previously on the patient was subtherapeutic on her warfarin or it was held she had a non-STEMI. Her warfarin was once again held and her INR was subtherapeutic. She had chest pain last night and bumped her high-sensitivity troponins. She needs to have a heparin bridge until her warfarin is therapeutic again. Admission and Anticipated Discharge Date Admission Date: August 02, 2021 Subjective The patient had chest pain last night. None today and she feels much improved. Review of Systems Review of Systems: Review of Systems: See HPI for pertinent positives. All other 10 point review of systems are negative. Physical Exam Physical Exam: General: no acute distress and stated age Head: normocephalic, no masses, lesions, tenderness or abnormalities Eyes: conjunctiva are pink and non-injected, sclera clear Neck: supple, no adenopathy, no bruits, normal jugular venous pulse, no hepatojugular reflux Chest: normal shape and normal respiratory effort Lungs: clear to auscultation and percussion Cardiac Exam: - regular rate & rhythm, no murmurs gallops or rubs -mechanical S1, normal S2 Pulses: 2(+) throughout Abdomen: abdomen soft, non-tender, no abnormal masses and no hepatosplenomegaly Musculoskeletal: no gait disturbance, no joint inflammation, no deforming arthritis Extremities: no edema and no cyanosis Neuro: grossly normal exam Results & Data ([facility]) Vital Signs (Past 12 Hours) Vital Signs Temp Pulse Pulse Resp BP Pulse Ox 08/14/21 07:49 36.6 C 84 20 108/56 L 98 08/14/21 07:38 66 08/14/21 07:05 75 17 92 08/14/21 02:09 36.6 C 76 18 120/61 98 08/13/21 22:46 36.8 C 87 18 110/62 94 08/13/21 22:15 90 Laboratory Results Laboratory Results - last 24 hr 08/13/21 08/13/2122 10:20 10:20 11:34 WBC 7.83 RBC 3.37 L Hgb 8.8 L Hct 29.1 L MCV 86.4 MCH 26.1 MCHC 30.2 L RDW Std Deviation 55.8 H RDW Coeff of Courtney 18.0 H Plt Count 263 MPV 10.0 Immature Gran % (Auto) 1.1 Neut % (Auto) 82.5 Lymph % (Auto) 7.8 [place] % (Auto) 6.1 Eos % (Auto) 2.4 Baso % (Auto) 0.1 Neut # (Auto) 6.45 Lymph # (Auto) 0.61 L [place] # (Auto) 0.48 Eos # (Auto) 0.19 Baso # (Auto) 0.01 Immature Gran # (Auto) 0.09 H PT 15.1 H INR 1.4 H APTT 44.4 H PTT Ratio 1.6 Sodium Potassium Chloride Carbon Dioxide Anion Gap BUN Creatinine Est Cr Clr Drug Dosing Est GFR ( Amer) Est GFR (Non-Af Amer) BUN/Creatinine Ratio Glucose POC Glucose 118 H Calcium Phosphorus Magnesium Troponin I High Sens Triglycerides Cholesterol LDL Cholesterol, Calc VLDL Cholesterol, Calc HDL Cholesterol Cholesterol/HDL Ratio 08/13/21 08/13/21 08/13/21 16:58 17:36 20:15 WBC RBC Hgb Hct MCV MCH MCHC RDW Std Deviation RDW Coeff of Courtney Plt Count MPV Immature Gran % (Auto) Neut % (Auto) Lymph % (Auto) [place] % (Auto) Eos % (Auto) Baso % (Auto) Neut # (Auto) Lymph # (Auto) [place] # (Auto) Eos # (Auto) Baso # (Auto) Immature Gran # (Auto) PT INR APTT 87.7 H* PTT Ratio 3.2 Sodium Potassium Chloride Carbon Dioxide Anion Gap BUN Creatinine Est Cr Clr Drug Dosing Est GFR ( Amer) Est GFR (Non-Af Amer) BUN/Creatinine Ratio Glucose POC Glucose 138 H 179 H Calcium Phosphorus Magnesium Troponin I High Sens Triglycerides Cholesterol LDL Cholesterol, Calc VLDL Cholesterol, Calc HDL Cholesterol Cholesterol/HDL Ratio 08/13/21 08/14/21 08/14/21 21:36 00:44 02:03 WBC 6.90 RBC 3.10 L Hgb 8.2 L Hct 26.7 L MCV 86.1 MCH 26.5 MCHC 30.7 L RDW Std Deviation 55.3 H RDW Coeff of Courtney 18.0 H Plt Count 227 MPV 9.6 Immature Gran % (Auto) Neut % (Auto) Lymph % (Auto) [place] % (Auto) Eos % (Auto) Baso % (Auto) Neut # (Auto) Lymph # (Auto) [place] # (Auto) Eos # (Auto) Baso # (Auto) Immature Gran # (Auto) PT INR APTT PTT Ratio Sodium Potassium Chloride Carbon Dioxide Anion Gap BUN Creatinine Est Cr Clr Drug Dosing Est GFR ( Amer) Est GFR (Non-Af Amer) BUN/Creatinine Ratio Glucose POC Glucose Calcium Phosphorus Magnesium Troponin I High Sens 8.6 559.8 H* D Triglycerides Cholesterol LDL Cholesterol, Calc VLDL Cholesterol, Calc HDL Cholesterol Cholesterol/HDL Ratio 08/14/21 08/14/21 08/14/21 02:03 02:03 07:21 WBC RBC Hgb Hct MCV MCH MCHC RDW Std Deviation RDW Coeff of Courtney Plt Count MPV Immature Gran % (Auto) Neut % (Auto) Lymph % (Auto) [place] % (Auto) Eos % (Auto) Baso % (Auto) Neut # (Auto) Lymph # (Auto) [place] # (Auto) Eos # (Auto) Baso # (Auto) Immature Gran # (Auto) PT 18.2 H INR 1.8 H APTT 92.7 H* PTT Ratio 3.4 Sodium 134 L Potassium 3.7 Chloride 99 Carbon Dioxide 30 Anion Gap 5 BUN 23 Creatinine 1.31 H Est Cr Clr Drug Dosing 32.1 Est GFR ( Amer) 48.4 Est GFR (Non-Af Amer) 41.7 BUN/Creatinine Ratio 17.6 Glucose 118 H POC Glucose 129 H Calcium 9.7 Phosphorus 3.5 Magnesium 2.0 Troponin I High Sens 975.0 H* D Triglycerides 62 Cholesterol 119 LDL Cholesterol, Calc 60 VLDL Cholesterol, Calc 12 HDL Cholesterol 47 Cholesterol/HDL Ratio 2.5 Medications Administered Current Inpatient Medications Acetaminophen (Acetaminophen 325 Mg Tab) 650 mg PO Q6H PRN PRN Reason: MILD Pain 1,2,3 Stop: 09/01/21 20:35 Albuterol (Albuterol Hfa 8 Gm Inhaler (Combivent Respimat P&T Subs)) 1 puffs INH Q6H PRN PRN Reason: SOB or wheezing Stop: 09/01/21 21:27 Albuterol (Albut/Ipratrop 3mg/0.5mg Neb 3 Ml Vial) 3 ml INH QIDR [facility]; Protocol Stop: 09/02/21 10:59 Last Admin: 08/14/21 07:05 Dose: 3 ml Documented by: Aspirin (Aspirin 81 Mg Ectab) 81 mg PO QAM [facility] Stop: 09/13/21 01:34 Last Admin: 08/14/21 02:06 Dose: 81 mg Documented by: Azelastine HCl (Azelastine Hcl 0.1% Nasal 200 Sprays/27,400 Mcg Btl) 2 sprays NA AMHS [facility] Stop: 09/02/21 08:59 Last Admin: 08/14/21 08:44 Dose: 2 sprays Documented by: Benzonatate (Benzonatate 100 Mg Capsule) 100 mg PO TID [facility] Stop: 09/05/21 20:59 Last Admin: 08/14/21 08:46 Dose: 100 mg Documented by: Citalopram Hydrobromide (Citalopram 20 Mg Tab) 10 mg PO DAILY [facility] Stop: 09/02/21 08:59 Last Admin: 08/14/21 08:40 Dose: 10 mg Documented by: Dextrose (Dextrose 50% 50 Ml Syringe) 25 - 50 ml IV UD PRN; Protocol PRN Reason: Hypoglycemia Protocol Stop: 09/01/21 20:35 Docusate Sodium (Docusate Sodium 100 Mg Cap) 100 mg PO BID [facility] Stop: 09/05/21 15:39 Last Admin: 08/14/21 08:46 Dose: 100 mg Documented by: Doxycycline Hyclate (Doxycycline Hyclate 100 Mg Cap) 100 mg PO BID [facility] Stop: 08/16/21 23:59 Last Admin: 08/14/21 08:43 Dose: 100 mg Documented by: Fluticasone/Vilanterol (Fluticasone/Vilanterol 100/25mcg 14 Puffs/Inhaler) 1 puffs INH DAILY [facility] Stop: 09/02/21 08:59 Last Admin: 08/14/21 08:43 Dose: 1 puffs Documented by: Folic Acid (Folic Acid 1 Mg Tab) 1 mg PO QAM [facility] Stop: 09/02/21 08:59 Last Admin: 08/14/21 08:40 Dose: 1 mg Documented by: Furosemide (Furosemide 40 Mg Tab) 40 mg PO QAM [facility] Stop: 09/03/21 09:14 Last Admin: 08/14/21 08:41 Dose: 40 mg Documented by: Glucagon (Glucagon For Inj 1 Mg Vial) 1 mg SQ UD PRN; Protocol PRN Reason: Hypoglycemia Protocol Stop: 09/01/21 20:35 Glucose (Glucose 10 Tabs/Tube) 4 - 8 tabs PO UD PRN; Protocol PRN Reason: Hypoglycemia Protocol Stop: 09/01/21 20:35 Glucose (Glucose 40% Gel 15 Gm Tube) 15 - 30 gm PO UD PRN; Protocol PRN Reason: Hypoglycemia Protocol Stop: 09/01/21 20:35 Guaifenesin (Guaifenesin 600 Mg Tabcr) 600 mg PO Q12 [facility] Stop: 09/01/21 20:59 Last Admin: 08/14/21 08:42 Dose: 600 mg Documented by: Hydromorphone HCl (Hydromorphone Inj 0.5 Mg/0.5 Ml Syr) 0.5 mg IV Q3H PRN PRN Reason: Pain Stop: 08/16/21 21:50 Last Admin: 08/13/21 20:55 Dose: 0.5 mg Documented by: Heparin Sodium/Dextrose (Heparin Sodium/Dextrose) 25,000 units in 500 mls @ 8 mls/hr IV .Q24H [facility]; Protocol Stop: 09/12/21 09:44 Last Titration: 08/14/21 07:11 Dose: 400 units/hr, 8 mls/hr Documented by: Insulin Aspart (Insulin Aspart Per Unit) 0 units SC ACHS [facility] Stop: 09/09/21 16:29 Last Admin: 08/14/21 08:39 Dose: Not Given Documented by: Ipratropium [place] (Ipratropium Hfa Inhaler (Combivent Respimat P&T Subs)) 1 puffs INH Q6H PRN PRN Reason: SOB or wheezing Stop: 09/01/21 21:27 Levothyroxine Sodium (Levothyroxine Sodium 100 Mcg Tablet) 100 mcg PO DAILYBB [facility] Stop: 09/02/21 06:29 Last Admin: 08/14/21 06:13 Dose: 100 mcg Documented by: Magnesium Hydroxide (Magnesium Hydroxide Susp 30 Ml Udc) 5 ml PO DAILY PRN PRN Reason: Constipation Stop: 09/01/21 20:35 Melatonin (Melatonin 3 Mg Tab) 3 mg PO HS PRN PRN Reason: Sleep Stop: 09/09/21 21:27 Last Admin: 08/13/21 22:53 Dose: 3 mg Documented by: Metoclopramide HCl (Metoclopramide Hcl 10 Mg Tablet) 10 mg PO DAILY PRN PRN Reason: Nausea Stop: 09/01/21 20:35 Last Admin: 08/14/21 08:42 Dose: 10 mg Documented by: Metoprolol Tartrate (Metoprolol Tartrate 25 Mg Tab) 25 mg PO BID [facility] Stop: 09/03/21 08:59 Last Admin: 08/14/21 08:39 Dose: 25 mg Documented by: Miscellaneous (Carbohydrates For Hypoglycemia ) 15 - 30 gm PO UD PRN PRN Reason: Hypoglycemia Protocol Stop: 09/01/21 20:35 Nitroglycerin (Nitroglycerin Sl 0.4 Mg/Tab Tab) 0.4 mg SL Q5M PRN PRN Reason: Chest Pain Stop: 09/01/21 20:35 Last Admin: 08/13/21 22:47 Dose: 0.4 mg Documented by: Pantoprazole Sodium (Pantoprazole 40 Mg Tab) 40 mg PO PM [facility] Stop: 09/01/21 20:59 Last Admin: 08/13/21 22:52 Dose: 40 mg Documented by: Ropinirole HCl (Ropinirole Hcl 2 Mg Tablet) 2 mg PO TID [facility] Stop: 09/01/21 20:59 Last Admin: 08/14/21 08:42 Dose: 2 mg Documented by: Rosuvastatin Calcium (Rosuvastatin Calcium 20 Mg Tab) 20 mg PO HS [facility] Stop: 09/01/21 20:59 Last Admin: 08/13/21 22:53 Dose: 20 mg Documented by: Sennosides (Senna 8.6 Mg Tab) 17.2 mg PO HS PRN PRN Reason: Constipation Last Admin: 08/13/21 08:07 Dose: 17.2 mg Documented by: Spironolactone (Spironolactone 12.5 Mg Tab) 12.5 mg PO DAILY [facility] Stop: 09/02/21 08:59 Last Admin: 08/14/21 08:39 Dose: 12.5 mg Documented by: Tramadol HCl (Tramadol Hcl 50 Mg Tablet) 50 mg PO TID PRN PRN Reason: MOD-SEVERE Pain4,5,6,7,8,9,10 Stop: 09/01/21 20:35 Last Admin: 08/10/21 22:23 Dose: 50 mg Documented by: Warfarin Sodium (Warfarin Sod 5 Mg Tab) 5 mg PO DAILY@1600 [facility] Stop: 09/11/21 15:59 Last Admin: 08/13/21 15:44 Dose: 5 mg Documented by: (1) Hematoma of left thigh Encounter type: initial encounter Qualified Code(s): S70.12XA - Contusion of left thigh, initial encounter
[2021-08-14 10:47] LABS: Partial Thromboplastin Ratio 2.2
[2021-08-14 10:54] LABS: Partial Thromboplastin Time 61.2 Seconds (21.0-31.0)
[2021-08-14] MEDS: HYDROmorphone INJ 0.5 MG/0.5 ML SYR IV PRN ×2 (11:39→18:23)
[2021-08-14] MEDS: WARFARIN SOD 5 MG TAB PO SCH (16:32)
[2021-08-14] MEDS: PANTOprazole 40 MG TAB PO SCH (19:51)
[2021-08-14] MEDS: ROSUVASTATIN CALCIUM 20 MG TAB PO SCH (19:52)
[2021-08-14] MEDS: MELATONIN 3 MG TAB PO PRN (23:24)
[2021-08-15] MEDS: LEVOTHYROXINE SODIUM 100 MCG TABLET PO SCH (05:49)
[2021-08-15 06:48] LABS: Partial Thromboplastin Ratio 1.9
[2021-08-15 06:51] LABS: Partial Thromboplastin Time 51.2 Seconds (21.0-31.0)
[2021-08-15] MEDS: ALBUT/IPRATROP 3MG/0.5MG NEB 3 ML VIAL INH SCH ×4 (07:20→19:07)
[2021-08-15] MEDS: SPIRONOLACTONE 12.5 MG TAB PO SCH (08:41)
[2021-08-15] MEDS: CITALOPRAM 20 MG TAB PO SCH (08:41)
[2021-08-15] MEDS: ASPIRIN 81 MG ECTAB PO SCH (08:41)
[2021-08-15] MEDS: FUROSEMIDE 40 MG TAB PO SCH (08:41)
[2021-08-15] MEDS: FOLIC ACID 1 MG TAB PO SCH (08:41)
[2021-08-15] MEDS: guaiFENesin 600 MG TABCR PO SCH ×2 (08:43→19:48)
[2021-08-15] MEDS: METOPROLOL TARTRATE 25 MG TAB PO SCH ×2 (08:43→19:47)
[2021-08-15] MEDS: rOPINIRole HCL 2 MG TABLET PO SCH ×3 (08:43→19:46)
[2021-08-15] MEDS: FLUTICASONE/VILANTEROL 100/25MCG 14 PUFFS/INHALER INH SCH (08:44)
[2021-08-15] MEDS: INSULIN ASPART PER UNIT SC SCH ×4 (08:44→20:01)
[2021-08-15] MEDS: AZELASTINE HCL 0.1% NASAL 200 SPRAYS/27,400 MCG BTL SCH ×2 (08:44→19:50)
[2021-08-15] MEDS: HYDROmorphone INJ 0.5 MG/0.5 ML SYR IV PRN ×2 (08:54→18:35)
[2021-08-15] MEDS: DOCUSATE SODIUM 100 MG CAP PO SCH ×2 (09:13→19:53)
--- NOTE | 2021-08-15 09:38 | Cardiology Progress Note ---
Date of Service August 15, 2021 Assessment & Plan (1) Nontraumatic intramuscular hematoma: (2) Hematoma of left thigh: (3) Rheumatic heart disease: (4) H/O mitral valve replacement with mechanical valve: (5) Chronic diastolic CHF (congestive heart failure): (6) History of CVA (cerebrovascular accident): (7) Myocardial infarction: (8) Permanent atrial fibrillation: Plan: The patient's INR today is 2.0. I would continue IV heparin until her INR is at least 2.5. Otherwise she is doing well. Admission and Anticipated Discharge Date Admission Date: August 02, 2021 Subjective Patient in good spirits. No additional chest pain for the past 24 hours. Review of Systems Review of Systems: Review of Systems: See HPI for pertinent positives. All other 10 point review of systems are negative. Physical Exam Physical Exam: General: no acute distress and stated age Head: normocephalic, no masses, lesions, tenderness or abnormalities Eyes: conjunctiva are pink and non-injected, sclera clear Neck: supple, no adenopathy, no bruits, normal jugular venous pulse, no hepatojugular reflux Chest: normal shape and normal respiratory effort Lungs: clear to auscultation and percussion Cardiac Exam: - regular rate & rhythm, no murmurs gallops or rubs -mechanical S1, normal S2 Pulses: 2(+) throughout Abdomen: abdomen soft, non-tender, no abnormal masses and no hepatosplenomegaly Musculoskeletal: no gait disturbance, no joint inflammation, no deforming arthritis Extremities: no edema and no cyanosis Neuro: grossly normal exam Results & Data ([facility]) Vital Signs (Past 12 Hours) Vital Signs Temp Pulse Pulse Resp BP Pulse Ox 08/15/21 07:45 36.9 C 80 20 108/63 97 08/15/21 07:21 67 16 96 08/15/21 02:26 36.8 C 83 20 109/68 97 08/15/21 01:42 81 08/14/21 23:13 36.4 C L 77 20 91/58 L 97 Laboratory Results Laboratory Results - last 24 hr 08/14/21 08/14/21 08/14/21 10:12 12:02 16:26 PT INR APTT 61.2 H* PTT Ratio 2.2 POC Glucose 120 H 254 H 08/14/21 08/15/21 08/15/21 19:56 05:37 07:21 PT 21.0 H INR 2.0 H APTT 51.2 H* PTT Ratio 1.9 POC Glucose 193 H 124 H Medications Administered Current Inpatient Medications Acetaminophen (Acetaminophen 325 Mg Tab) 650 mg PO Q6H PRN PRN Reason: MILD Pain 1,2,3 Stop: 09/01/21 20:35 Albuterol (Albuterol Hfa 8 Gm Inhaler (Combivent Respimat P&T Subs)) 1 puffs INH Q6H PRN PRN Reason: SOB or wheezing Stop: 09/01/21 21:27 Albuterol (Albut/Ipratrop 3mg/0.5mg Neb 3 Ml Vial) 3 ml INH QIDR [facility]; Protocol Stop: 09/02/21 10:59 Last Admin: 08/15/21 07:20 Dose: 3 ml Documented by: Aspirin (Aspirin 81 Mg Ectab) 81 mg PO QAM [facility] Stop: 09/13/21 01:34 Last Admin: 08/15/21 08:41 Dose: 81 mg Documented by: Azelastine HCl (Azelastine Hcl 0.1% Nasal 200 Sprays/27,400 Mcg Btl) 2 sprays NA AMHS [facility] Stop: 09/02/21 08:59 Last Admin: 08/15/21 08:44 Dose: 2 sprays Documented by: Benzonatate (Benzonatate 100 Mg Capsule) 100 mg PO TID [facility] Stop: 09/05/21 20:59 Last Admin: 08/15/21 09:40 Dose: Not Given Documented by: Citalopram Hydrobromide (Citalopram 20 Mg Tab) 10 mg PO DAILY [facility] Stop: 09/02/21 08:59 Last Admin: 08/15/21 08:41 Dose: 10 mg Documented by: Dextrose (Dextrose 50% 50 Ml Syringe) 25 - 50 ml IV UD PRN; Protocol PRN Reason: Hypoglycemia Protocol Stop: 09/01/21 20:35 Docusate Sodium (Docusate Sodium 100 Mg Cap) 100 mg PO BID [facility] Stop: 09/05/21 15:39 Last Admin: 08/15/21 09:13 Dose: Not Given Documented by: Fluticasone/Vilanterol (Fluticasone/Vilanterol 100/25mcg 14 Puffs/Inhaler) 1 puffs INH DAILY [facility] Stop: 09/02/21 08:59 Last Admin: 08/15/21 08:44 Dose: 1 puffs Documented by: Folic Acid (Folic Acid 1 Mg Tab) 1 mg PO QAM [facility] Stop: 09/02/21 08:59 Last Admin: 08/15/21 08:41 Dose: 1 mg Documented by: Furosemide (Furosemide 40 Mg Tab) 40 mg PO QAM [facility] Stop: 09/03/21 09:14 Last Admin: 08/15/21 08:41 Dose: 40 mg Documented by: Glucagon (Glucagon For Inj 1 Mg Vial) 1 mg SQ UD PRN; Protocol PRN Reason: Hypoglycemia Protocol Stop: 09/01/21 20:35 Glucose (Glucose 10 Tabs/Tube) 4 - 8 tabs PO UD PRN; Protocol PRN Reason: Hypoglycemia Protocol Stop: 09/01/21 20:35 Glucose (Glucose 40% Gel 15 Gm Tube) 15 - 30 gm PO UD PRN; Protocol PRN Reason: Hypoglycemia Protocol Stop: 09/01/21 20:35 Guaifenesin (Guaifenesin 600 Mg Tabcr) 600 mg PO Q12 [facility] Stop: 09/01/21 20:59 Last Admin: 08/15/21 08:43 Dose: 600 mg Documented by: Hydromorphone HCl (Hydromorphone Inj 0.5 Mg/0.5 Ml Syr) 0.5 mg IV Q3H PRN PRN Reason: Pain Stop: 08/16/21 21:50 Last Admin: 08/15/21 08:54 Dose: 0.5 mg Documented by: Heparin Sodium/Dextrose (Heparin Sodium/Dextrose) 25,000 units in 500 mls @ 8 mls/hr IV .Q24H [facility]; Protocol Stop: 09/12/21 09:44 Last Titration: 08/15/21 07:10 Dose: 400 units/hr, 8 mls/hr Documented by: Insulin Aspart (Insulin Aspart Per Unit) 0 units SC ACHS [facility] Stop: 09/09/21 16:29 Last Admin: 08/15/21 08:44 Dose: Not Given Documented by: Ipratropium [place] (Ipratropium Hfa Inhaler (Combivent Respimat P&T Subs)) 1 puffs INH Q6H PRN PRN Reason: SOB or wheezing Stop: 09/01/21 21:27 Levothyroxine Sodium (Levothyroxine Sodium 100 Mcg Tablet) 100 mcg PO DAILYBB [facility] Stop: 09/02/21 06:29 Last Admin: 08/15/21 05:49 Dose: 100 mcg Documented by: Magnesium Hydroxide (Magnesium Hydroxide Susp 30 Ml Udc) 5 ml PO DAILY PRN PRN Reason: Constipation Stop: 09/01/21 20:35 Melatonin (Melatonin 3 Mg Tab) 3 mg PO HS PRN PRN Reason: Sleep Stop: 09/09/21 21:27 Last Admin: 08/14/21 23:24 Dose: 3 mg Documented by: Metoclopramide HCl (Metoclopramide Hcl 10 Mg Tablet) 10 mg PO DAILY PRN PRN Reason: Nausea Stop: 09/01/21 20:35 Last Admin: 08/14/21 08:42 Dose: 10 mg Documented by: Metoprolol Tartrate (Metoprolol Tartrate 25 Mg Tab) 25 mg PO BID [facility] Stop: 09/03/21 08:59 Last Admin: 08/15/21 08:43 Dose: 25 mg Documented by: Miscellaneous (Carbohydrates For Hypoglycemia ) 15 - 30 gm PO UD PRN PRN Reason: Hypoglycemia Protocol Stop: 09/01/21 20:35 Nitroglycerin (Nitroglycerin Sl 0.4 Mg/Tab Tab) 0.4 mg SL Q5M PRN PRN Reason: Chest Pain Stop: 09/01/21 20:35 Last Admin: 08/13/21 22:47 Dose: 0.4 mg Documented by: Pantoprazole Sodium (Pantoprazole 40 Mg Tab) 40 mg PO PM [facility] Stop: 09/01/21 20:59 Last Admin: 08/14/21 19:51 Dose: 40 mg Documented by: Ropinirole HCl (Ropinirole Hcl 2 Mg Tablet) 2 mg PO TID [facility] Stop: 09/01/21 20:59 Last Admin: 08/15/21 08:43 Dose: 2 mg Documented by: Rosuvastatin Calcium (Rosuvastatin Calcium 20 Mg Tab) 20 mg PO HS [facility] Stop: 09/01/21 20:59 Last Admin: 08/14/21 19:52 Dose: 20 mg Documented by: Sennosides (Senna 8.6 Mg Tab) 17.2 mg PO HS PRN PRN Reason: Constipation Last Admin: 08/13/21 08:07 Dose: 17.2 mg Documented by: Spironolactone (Spironolactone 12.5 Mg Tab) 12.5 mg PO DAILY [facility] Stop: 09/02/21 08:59 Last Admin: 08/15/21 08:41 Dose: 12.5 mg Documented by: Tramadol HCl (Tramadol Hcl 50 Mg Tablet) 50 mg PO TID PRN PRN Reason: MOD-SEVERE Pain4,5,6,7,8,9,10 Stop: 09/01/21 20:35 Last Admin: 08/10/21 22:23 Dose: 50 mg Documented by: Warfarin Sodium (Warfarin Sod 5 Mg Tab) 5 mg PO DAILY@1600 [facility] Stop: 09/11/21 15:59 Last Admin: 08/14/21 16:32 Dose: 5 mg Documented by: (1) Hematoma of left thigh Encounter type: initial encounter Qualified Code(s): S70.12XA - Contusion of left thigh, initial encounter
[2021-08-15] MEDS: BENZONATATE 100 MG CAPSULE PO SCH ×3 (09:40→22:01)
[2021-08-15] MEDS: traMADol HCL 50 MG TABLET PO PRN ×2 (15:30→23:44)
[2021-08-15] MEDS: WARFARIN SOD 5 MG TAB PO SCH (15:31)
[2021-08-15] MEDS: HEPARIN SODIUM/DEXTROSE 25,000 UNITS/500 ML BAG IV SCH (19:16)
--- NOTE | 2021-08-15 19:38 | Hospitalist Progress Note ---
Date of Service August 15, 2021 Assessment & Plan (1) H/O mitral valve replacement with mechanical valve: (2) Nontraumatic intramuscular hematoma: Plan: 65 yo F w/ type 2 diabetes, currently not on any medications, chronic kidney disease stage III, hypothyroidism, hyperlipidemia, atrial fibrillation, tachybrady syndrome, history of syncope, status post loop recorder, chronic diastolic CHF, history of rheumatic heart disease, history of CAD, varicose veins of both legs, history of GERD, generalized osteoarthritis, restless legs syndrome, status post mechanical mitral valve replacement, history of TIA, history of recurrent falls, generalized anxiety disorder who was recently admitted 07/18-07/25 for shortness of breath and leg swelling improved with iv diuresis; also had EGD 07/24 for barium pill stuck in esophagus and was discharged on lovenox 60 bid along with coumadin because of subtherapeutic INR (h/o mechanical MVR) presented to the ED 08/02 with worsening left thigh pain for the past 2 days [employer]. She is being managed for the following: Admitting CT LLE 1. Acute intramuscular hemorrhage within the left iliacus, iliopsoas muscles and adductor muscles. Associated extraperitoneal hemorrhage. At least moderate intramuscular hemorrhage. Proximal extent of intramuscular hemorrhage not imaged on this exam. No active extravasation within visualized portions of the intramuscular hemorrhage. 2. Patent left common femoral and superficial femoral arteries. Intramuscular hematoma, non traumatic - CT reviewed as above- no active extravasation noted. No flank or abd tenderness to suspect Retroperitoneal bleed. - Hb at 10.1 at presentation, INR 2.7- received 1 mg of Vit K - Currently no compartment syndrome but will watch closely- (if so, will need urgent ortho evaluation and probably complete reversal of INR) - Trend H&H, transfuse as indicated --> Hb stable around 8.0, no erythema or increasing swelling. continue to monitor. INR. Pt has been on current dose of warfarin for long time per Pt. - PT/OT, likely DC to snf required. Pt declining any placement. 08/09 INR 7.1 - discussed w/ cardiology - hold coumadin, no vit. K 08/10 - INR 2.9 , however last night INR was 8.9 and vit. K given by night physician 08/11 INR 1.2 - increased warfarin dose, heparin subq ordered 08/12 INR 1.2 - back to 5 mg warfarin, incr. subq heparin, may need to consider IV heparin (likely w/o bolus) - will discuss w/ cardiology if no improvement in INR 08/13 INR 1.4 -H&H stable, will start IV heparin without bolus, discussed with cardiology. Continue to monitor INR and H&H 08/14 INR 1.8, had been on IV heparin, had chest pain overnight and elevation of troponin. Discussed with cardiology, continue IV heparin bridge until INR at go al. Aspirin started overnight. 08/15 INR 2.0 - cont. w/ IV heparin until INR at least 2.5 Mechanical MV on coumadin Permanent Afib H/o embolic AR and TIA Goal INR 3-3.5. Moving forward will avoid Lovenox or subcutaneous heparin bridges. On lopressor increased to 25 mg PO BID per cardio 08/09 INR 7.1 - discussed w/ cardiology - hold coumadin, no vit. K ? Melena: had multiple formed stools overnight, dark colored per RN, fobt +ve, pt on anticoagulation for Mechanical MV valve. GI consulted - no need for endoscopy, Hgb stable, stools brown. Had endoscopy recently, pls see full detail in their report. transfuse for symptomatic anemia for Hb < 7.5 given cardiac history. Electrolytes abnormality: Monitor and replete electrolytes, maintain K greater than 4 and Mg greater than 2 Hyponatremia: Na 129, generally 130-133 at baseline. When on diet, increase protein content in diet, FR, and low sodium diet, continue to monitor. Consider Nephro if with worsening s/s. Leukocytosis:WBC elevated at admission, trended up to 16.75K, trending down, afebrile, procal minimally elevated but trended down. Likely reactive to hematoma. 08/05 CXR w/ no acute finding. UA reviewed, UCx coag negative staph not saprophytic, Bl Cx negative Staph UTI: 08/05 UCx +ve for coag negative staph not saprophytic, initially Vanco 08/07, then c/w w/ doxy (finished treatment) Possible asthmatic bronchitis- started on breo and combivent prn by pulm during recent admission, continue w/ same. CKD3- Cr stable at baseline of around 1.4-1.6 Chronic diastolic CHF- on lasix and aldactone. Lasix (per cardio) upon DC: 40mg 3 days/wk and 80 mg 4 days/wk. BMP in 1 wk upon DC. BOBBY- on celexa DM-2- A1 7. not on insulin, SSI prn GERD- on PPI Dispo- PCU tele, expect dc in next 2-3 days if placement. Will need hemoglobin and INR to stabilize before discharging. Med telemetry. DVT ppx- coumadin Full Code. Admission and Anticipated Discharge Date Admission Date: August 02, 2021 Subjective Patient seen in follow-up of nontraumatic intramuscular hematoma of left thigh. Hx of mechanical mitral valve. Supratherapeutic INR, received vit.K overnight, then subtherapeutic Patient is sitting up in bed, on room air, in NAD. On IV heparin due to subtherapeutic INR. Currently denies any chest pain, palpitations, shortness of breath. Discussed further with cardiology, continue current regimen, heparin bridging until INR at least 2.5 Reports having more feeling in her leg Review of Systems Review of Systems: All systems reviewed & are unremarkable except as noted in Subjective Physical Exam Physical Exam: GENERAL: Alert and oriented x3. NAD, on RA. HEENT: No pallor, no icterus. EOMI. Pupils equal, round and reactive to light. Oral mucosa moist. NECK: No JVD, no neck masses. HEART: S1 and S2 heard. irregular rate and rhythm. No murmur, no gallop. RESPIRATORY SYSTEM: Normal AP diameter. No accessory muscle use. CTA. ABDOMEN: Soft, bowel sounds present, nontender, no distention. NEURO: No facial droop. Speech is clear. Obeys simple commands. Moves extremities. EXTREMITIES: trace ble edema, no erythema seen. Lt swelling improving, bruise medial left thigh and left buttock/low back stable, No erythema. Tenderness/numbness and ROM improving. Distal NV status normal. Results & Data Results & Data ([facility]) Vital Signs (Past 12 Hours) Vital Signs Temp Pulse Pulse Resp BP BP Pulse Ox 08/15/21 19:09 83 18 97 08/15/21 16:00 36.5 C 74 18 93/57 L 100 08/15/21 15:11 75 17 96 08/15/21 15:00 62 08/15/21 11:42 36.5 C 76 16 109/67 94 08/15/21 10:40 73 16 96 08/15/21 07:45 36.9 C 80 20 108/63 97 Laboratory Results 08/15/21 08/15/21 08/15/21 Range/Units 16:40 11:31 07:21 PT (9.0-12.0) Seconds INR (0.9-1.1) APTT (21.0-31.0) Seconds PTT Ratio POC Glucose 115 H 109 H 124 H (70-99) mg/dl 08/15/21 08/14/21 Range/Units 05:37 19:56 PT 21.0 H (9.0-12.0) Seconds INR 2.0 H (0.9-1.1) APTT 51.2 H* (21.0-31.0) Seconds PTT Ratio 1.9 POC Glucose 193 H (70-99) mg/dl Medications Administered Current Inpatient Medications Acetaminophen (Acetaminophen 325 Mg Tab) 650 mg PO Q6H PRN PRN Reason: MILD Pain 1,2,3 Stop: 09/01/21 20:35 Albuterol (Albuterol Hfa 8 Gm Inhaler (Combivent Respimat P&T Subs)) 1 puffs INH Q6H PRN PRN Reason: SOB or wheezing Stop: 09/01/21 21:27 Albuterol (Albut/Ipratrop 3mg/0.5mg Neb 3 Ml Vial) 3 ml INH QIDR [facility]; Protocol Stop: 09/02/21 10:59 Last Admin: 08/15/21 19:07 Dose: 3 ml Documented by: Aspirin (Aspirin 81 Mg Ectab) 81 mg PO QAM [facility] Stop: 09/13/21 01:34 Last Admin: 08/15/21 08:41 Dose: 81 mg Documented by: Azelastine HCl (Azelastine Hcl 0.1% Nasal 200 Sprays/27,400 Mcg Btl) 2 sprays NA AMHS [facility] Stop: 09/02/21 08:59 Last Admin: 08/15/21 19:50 Dose: 2 sprays Documented by: Benzonatate (Benzonatate 100 Mg Capsule) 100 mg PO TID [facility] Stop: 09/05/21 20:59 Last Admin: 08/15/21 13:37 Dose: 100 mg Documented by: Citalopram Hydrobromide (Citalopram 20 Mg Tab) 10 mg PO DAILY [facility] Stop: 09/02/21 08:59 Last Admin: 08/15/21 08:41 Dose: 10 mg Documented by: Dextrose (Dextrose 50% 50 Ml Syringe) 25 - 50 ml IV UD PRN; Protocol PRN Reason: Hypoglycemia Protocol Stop: 09/01/21 20:35 Docusate Sodium (Docusate Sodium 100 Mg Cap) 100 mg PO BID [facility] Stop: 09/05/21 15:39 Last Admin: 08/15/21 19:53 Dose: Not Given Documented by: Fluticasone/Vilanterol (Fluticasone/Vilanterol 100/25mcg 14 Puffs/Inhaler) 1 puffs INH DAILY [facility] Stop: 09/02/21 08:59 Last Admin: 08/15/21 08:44 Dose: 1 puffs Documented by: Folic Acid (Folic Acid 1 Mg Tab) 1 mg PO QAM [facility] Stop: 09/02/21 08:59 Last Admin: 08/15/21 08:41 Dose: 1 mg Documented by: Furosemide (Furosemide 40 Mg Tab) 40 mg PO QAM [facility] Stop: 09/03/21 09:14 Last Admin: 08/15/21 08:41 Dose: 40 mg Documented by: Glucagon (Glucagon For Inj 1 Mg Vial) 1 mg SQ UD PRN; Protocol PRN Reason: Hypoglycemia Protocol Stop: 09/01/21 20:35 Glucose (Glucose 10 Tabs/Tube) 4 - 8 tabs PO UD PRN; Protocol PRN Reason: Hypoglycemia Protocol Stop: 09/01/21 20:35 Glucose (Glucose 40% Gel 15 Gm Tube) 15 - 30 gm PO UD PRN; Protocol PRN Reason: Hypoglycemia Protocol Stop: 09/01/21 20:35 Guaifenesin (Guaifenesin 600 Mg Tabcr) 600 mg PO Q12 [facility] Stop: 09/01/21 20:59 Last Admin: 08/15/21 19:48 Dose: 600 mg Documented by: Hydromorphone HCl (Hydromorphone Inj 0.5 Mg/0.5 Ml Syr) 0.5 mg IV Q3H PRN PRN Reason: Pain Stop: 08/16/21 21:50 Last Admin: 08/15/21 18:35 Dose: 0.5 mg Documented by: Heparin Sodium/Dextrose (Heparin Sodium/Dextrose) 25,000 units in 500 mls @ 8 mls/hr IV .Q24H [facility]; Protocol Stop: 09/12/21 09:44 Last Admin: 08/15/21 19:16 Dose: 400 units/hr, 8 mls/hr Documented by: Insulin Aspart (Insulin Aspart Per Unit) 0 units SC ACHS [facility] Stop: 09/09/21 16:29 Last Admin: 08/15/21 16:47 Dose: Not Given Documented by: Ipratropium [place] (Ipratropium Hfa Inhaler (Combivent Respimat P&T Subs)) 1 puffs INH Q6H PRN PRN Reason: SOB or wheezing Stop: 09/01/21 21:27 Levothyroxine Sodium (Levothyroxine Sodium 100 Mcg Tablet) 100 mcg PO DAILYBB [facility] Stop: 09/02/21 06:29 Last Admin: 08/15/21 05:49 Dose: 100 mcg Documented by: Magnesium Hydroxide (Magnesium Hydroxide Susp 30 Ml Udc) 5 ml PO DAILY PRN PRN Reason: Constipation Stop: 09/01/21 20:35 Melatonin (Melatonin 3 Mg Tab) 3 mg PO HS PRN PRN Reason: Sleep Stop: 09/09/21 21:27 Last Admin: 08/14/21 23:24 Dose: 3 mg Documented by: Metoclopramide HCl (Metoclopramide Hcl 10 Mg Tablet) 10 mg PO DAILY PRN PRN Reason: Nausea Stop: 09/01/21 20:35 Last Admin: 08/14/21 08:42 Dose: 10 mg Documented by: Metoprolol Tartrate (Metoprolol Tartrate 25 Mg Tab) 25 mg PO BID [facility] Stop: 09/03/21 08:59 Last Admin: 08/15/21 19:47 Dose: Not Given Documented by: Miscellaneous (Carbohydrates For Hypoglycemia ) 15 - 30 gm PO UD PRN PRN Reason: Hypoglycemia Protocol Stop: 09/01/21 20:35 Nitroglycerin (Nitroglycerin Sl 0.4 Mg/Tab Tab) 0.4 mg SL Q5M PRN PRN Reason: Chest Pain Stop: 09/01/21 20:35 Last Admin: 08/13/21 22:47 Dose: 0.4 mg Documented by: Pantoprazole Sodium (Pantoprazole 40 Mg Tab) 40 mg PO PM [facility] Stop: 09/01/21 20:59 Last Admin: 08/15/21 19:49 Dose: 40 mg Documented by: Ropinirole HCl (Ropinirole Hcl 2 Mg Tablet) 2 mg PO TID [facility] Stop: 09/01/21 20:59 Last Admin: 08/15/21 19:46 Dose: 2 mg Documented by: Rosuvastatin Calcium (Rosuvastatin Calcium 20 Mg Tab) 20 mg PO HS [facility] Stop: 09/01/21 20:59 Last Admin: 08/15/21 19:48 Dose: 20 mg Documented by: Sennosides (Senna 8.6 Mg Tab) 17.2 mg PO HS PRN PRN Reason: Constipation Last Admin: 08/15/21 19:47 Dose: 17.2 mg Documented by: Spironolactone (Spironolactone 12.5 Mg Tab) 12.5 mg PO DAILY [facility] Stop: 09/02/21 08:59 Last Admin: 08/15/21 08:41 Dose: 12.5 mg Documented by: Tramadol HCl (Tramadol Hcl 50 Mg Tablet) 50 mg PO TID PRN PRN Reason: MOD-SEVERE Pain4,5,6,7,8,9,10 Stop: 09/01/21 20:35 Last Admin: 08/15/21 15:30 Dose: 50 mg Documented by: Warfarin Sodium (Warfarin Sod 5 Mg Tab) 5 mg PO DAILY@1600 [facility] Stop: 09/11/21 15:59 Last Admin: 08/15/21 15:31 Dose: 5 mg Documented by:
[2021-08-15] MEDS: SENNA 8.6 MG TAB PO PRN (19:47)
[2021-08-15] MEDS: ROSUVASTATIN CALCIUM 20 MG TAB PO SCH (19:48)
[2021-08-15] MEDS: PANTOprazole 40 MG TAB PO SCH (19:49)
[2021-08-15] MEDS: MELATONIN 3 MG TAB PO PRN (23:44)
[2021-08-16] MEDS: LEVOTHYROXINE SODIUM 100 MCG TABLET PO SCH (06:00)
[2021-08-16 06:06] LABS: Hemoglobin 8.2 g/dL (12.0-16.0)
[2021-08-16 06:12] LABS: INR 1.9 (0.9-1.1); Prothrombin Time 19.3 Seconds (9.0-12.0)
[2021-08-16] MEDS: ALBUT/IPRATROP 3MG/0.5MG NEB 3 ML VIAL INH SCH ×4 (07:11→20:13)
[2021-08-16] MEDS: guaiFENesin 600 MG TABCR PO SCH ×2 (09:05→20:33)
[2021-08-16] MEDS: ASPIRIN 81 MG ECTAB PO SCH (09:05)
[2021-08-16] MEDS: FOLIC ACID 1 MG TAB PO SCH (09:05)
[2021-08-16] MEDS: CITALOPRAM 20 MG TAB PO SCH (09:06)
[2021-08-16] MEDS: FUROSEMIDE 40 MG TAB PO SCH (09:06)
[2021-08-16] MEDS: SPIRONOLACTONE 12.5 MG TAB PO SCH (09:06)
[2021-08-16] MEDS: rOPINIRole HCL 2 MG TABLET PO SCH ×3 (09:06→20:31)
[2021-08-16] MEDS: METOPROLOL TARTRATE 25 MG TAB PO SCH ×2 (09:06→20:32)
[2021-08-16] MEDS: DOCUSATE SODIUM 100 MG CAP PO SCH ×2 (09:07→20:31)
[2021-08-16] MEDS: BENZONATATE 100 MG CAPSULE PO SCH ×3 (09:08→20:31)
[2021-08-16] MEDS: INSULIN ASPART PER UNIT SC SCH ×4 (09:08→20:29)
[2021-08-16] MEDS: AZELASTINE HCL 0.1% NASAL 200 SPRAYS/27,400 MCG BTL SCH ×2 (09:10→20:31)
[2021-08-16] MEDS: FLUTICASONE/VILANTEROL 100/25MCG 14 PUFFS/INHALER INH SCH (09:11)
[2021-08-16] MEDS: HYDROmorphone INJ 0.5 MG/0.5 ML SYR IV PRN (09:21)
[2021-08-16 12:21] LABS: Partial Thromboplastin Ratio 1.7
[2021-08-16 12:27] LABS: Partial Thromboplastin Time 45.5 Seconds (21.0-31.0)
--- NOTE | 2021-08-16 12:59 | Cardiology Progress Note ---
Date of Service August 16, 2021 Assessment & Plan (1) Nontraumatic intramuscular hematoma: (2) Hematoma of left thigh: (3) Rheumatic heart disease: (4) H/O mitral valve replacement with mechanical valve: (5) Chronic diastolic CHF (congestive heart failure): (6) History of CVA (cerebrovascular accident): (7) Myocardial infarction: (8) Permanent atrial fibrillation: Plan: The patient's INR today is 2.2. I would give her another 7.5 mg of warfarin tonight and then she can resume her normal regimen at home. She is agreeable to staying 1 more day and I would continue the IV heparin. I am hopeful that by tomorrow her INR should be therapeutic enough for discharge. Also, she is not on Plavix and aspirin as an outpatient due to bleeding problems. I would recommend stopping the aspirin. Admission and Anticipated Discharge Date Admission Date: August 02, 2021 Subjective The patient has no complaints today. Review of Systems Review of Systems: Review of Systems: See HPI for pertinent positives. All other 10 point review of systems are negative. Physical Exam Physical Exam: General: no acute distress and stated age Head: normocephalic, no masses, lesions, tenderness or abnormalities Eyes: conjunctiva are pink and non-injected, sclera clear Neck: supple, no adenopathy, no bruits, normal jugular venous pulse, no hepatojugular reflux Chest: normal shape and normal respiratory effort Lungs: clear to auscultation and percussion Cardiac Exam: - regular rate & rhythm, no murmurs gallops or rubs -mechanical S1, normal S2 Pulses: 2(+) throughout Abdomen: abdomen soft, non-tender, no abnormal masses and no hepatosplenomegaly Musculoskeletal: no gait disturbance, no joint inflammation, no deforming arthritis Extremities: no edema and no cyanosis Neuro: grossly normal exam Results & Data ([facility]) Vital Signs (Past 12 Hours) Vital Signs Temp Pulse Pulse Resp BP Pulse Ox 08/16/21 11:44 36.5 C 86 18 128/65 97 08/16/21 10:49 83 18 98 08/16/21 08:07 36.5 C 63 18 113/64 96 08/16/21 07:12 82 18 98 08/16/21 03:08 89 08/16/21 03:00 36.6 C 76 20 104/57 L 99 Laboratory Results Laboratory Results - last 24 hr 08/15/21 08/15/21 08/16/21 16:40 19:56 05:40 Hgb Hct PT 19.3 H INR 1.9 H APTT PTT Ratio POC Glucose 115 H 180 H 08/16/21 08/16/21 08/16/21 05:40 05:40 07:40 Hgb 8.2 L Hct 27.0 L PT INR APTT 45.5 H* PTT Ratio 1.7 POC Glucose 90 08/16/21 11:34 Hgb Hct PT INR APTT PTT Ratio POC Glucose 128 H Medications Administered Current Inpatient Medications Acetaminophen (Acetaminophen 325 Mg Tab) 650 mg PO Q6H PRN PRN Reason: MILD Pain 1,2,3 Stop: 09/01/21 20:35 Albuterol (Albuterol Hfa 8 Gm Inhaler (Combivent Respimat P&T Subs)) 1 puffs INH Q6H PRN PRN Reason: SOB or wheezing Stop: 09/01/21 21:27 Albuterol (Albut/Ipratrop 3mg/0.5mg Neb 3 Ml Vial) 3 ml INH QIDR [facility]; Protocol Stop: 09/02/21 10:59 Last Admin: 08/16/21 10:49 Dose: 3 ml Documented by: Aspirin (Aspirin 81 Mg Ectab) 81 mg PO QAM [facility] Stop: 09/13/21 01:34 Last Admin: 08/16/21 09:05 Dose: 81 mg Documented by: Azelastine HCl (Azelastine Hcl 0.1% Nasal 200 Sprays/27,400 Mcg Btl) 2 sprays NA AMHS [facility] Stop: 09/02/21 08:59 Last Admin: 08/16/21 09:10 Dose: 2 sprays Documented by: Benzonatate (Benzonatate 100 Mg Capsule) 100 mg PO TID [facility] Stop: 09/05/21 20:59 Last Admin: 08/16/21 09:08 Dose: Not Given Documented by: Citalopram Hydrobromide (Citalopram 20 Mg Tab) 10 mg PO DAILY [facility] Stop: 09/02/21 08:59 Last Admin: 08/16/21 09:06 Dose: 10 mg Documented by: Dextrose (Dextrose 50% 50 Ml Syringe) 25 - 50 ml IV UD PRN; Protocol PRN Reason: Hypoglycemia Protocol Stop: 09/01/21 20:35 Docusate Sodium (Docusate Sodium 100 Mg Cap) 100 mg PO BID [facility] Stop: 09/05/21 15:39 Last Admin: 08/16/21 09:07 Dose: Not Given Documented by: Fluticasone/Vilanterol (Fluticasone/Vilanterol 100/25mcg 14 Puffs/Inhaler) 1 puffs INH DAILY [facility] Stop: 09/02/21 08:59 Last Admin: 08/16/21 09:11 Dose: Not Given Documented by: Folic Acid (Folic Acid 1 Mg Tab) 1 mg PO QAM [facility] Stop: 09/02/21 08:59 Last Admin: 08/16/21 09:05 Dose: 1 mg Documented by: Furosemide (Furosemide 40 Mg Tab) 40 mg PO QAM [facility] Stop: 09/03/21 09:14 Last Admin: 08/16/21 09:06 Dose: 40 mg Documented by: Glucagon (Glucagon For Inj 1 Mg Vial) 1 mg SQ UD PRN; Protocol PRN Reason: Hypoglycemia Protocol Stop: 09/01/21 20:35 Glucose (Glucose 10 Tabs/Tube) 4 - 8 tabs PO UD PRN; Protocol PRN Reason: Hypoglycemia Protocol Stop: 09/01/21 20:35 Glucose (Glucose 40% Gel 15 Gm Tube) 15 - 30 gm PO UD PRN; Protocol PRN Reason: Hypoglycemia Protocol Stop: 09/01/21 20:35 Guaifenesin (Guaifenesin 600 Mg Tabcr) 600 mg PO Q12 [facility] Stop: 09/01/21 20:59 Last Admin: 08/16/21 09:05 Dose: 600 mg Documented by: Hydromorphone HCl (Hydromorphone Inj 0.5 Mg/0.5 Ml Syr) 0.5 mg IV Q3H PRN PRN Reason: Pain Stop: 08/16/21 21:50 Last Admin: 08/16/21 09:21 Dose: 0.5 mg Documented by: Heparin Sodium/Dextrose (Heparin Sodium/Dextrose) 25,000 units in 500 mls @ 8 mls/hr IV .Q24H [facility]; Protocol Stop: 09/12/21 09:44 Last Admin: 08/15/21 19:16 Dose: 400 units/hr, 8 mls/hr Documented by: Insulin Aspart (Insulin Aspart Per Unit) 0 units SC ACHS [facility] Stop: 09/09/21 16:29 Last Admin: 08/16/21 09:08 Dose: Not Given Documented by: Ipratropium [place] (Ipratropium Hfa Inhaler (Combivent Respimat P&T Subs)) 1 puffs INH Q6H PRN PRN Reason: SOB or wheezing Stop: 09/01/21 21:27 Levothyroxine Sodium (Levothyroxine Sodium 100 Mcg Tablet) 100 mcg PO DAILYBB [facility] Stop: 09/02/21 06:29 Last Admin: 08/16/21 06:00 Dose: 100 mcg Documented by: Magnesium Hydroxide (Magnesium Hydroxide Susp 30 Ml Udc) 5 ml PO DAILY PRN PRN Reason: Constipation Stop: 09/01/21 20:35 Melatonin (Melatonin 3 Mg Tab) 3 mg PO HS PRN PRN Reason: Sleep Stop: 09/09/21 21:27 Last Admin: 08/15/21 23:44 Dose: 3 mg Documented by: Metoclopramide HCl (Metoclopramide Hcl 10 Mg Tablet) 10 mg PO DAILY PRN PRN Reason: Nausea Stop: 09/01/21 20:35 Last Admin: 08/14/21 08:42 Dose: 10 mg Documented by: Metoprolol Tartrate (Metoprolol Tartrate 25 Mg Tab) 25 mg PO BID [facility] Stop: 09/03/21 08:59 Last Admin: 08/16/21 09:06 Dose: 25 mg Documented by: Miscellaneous (Carbohydrates For Hypoglycemia ) 15 - 30 gm PO UD PRN PRN Reason: Hypoglycemia Protocol Stop: 09/01/21 20:35 Nitroglycerin (Nitroglycerin Sl 0.4 Mg/Tab Tab) 0.4 mg SL Q5M PRN PRN Reason: Chest Pain Stop: 09/01/21 20:35 Last Admin: 08/13/21 22:47 Dose: 0.4 mg Documented by: Pantoprazole Sodium (Pantoprazole 40 Mg Tab) 40 mg PO PM [facility] Stop: 09/01/21 20:59 Last Admin: 08/15/21 19:49 Dose: 40 mg Documented by: Ropinirole HCl (Ropinirole Hcl 2 Mg Tablet) 2 mg PO TID [facility] Stop: 09/01/21 20:59 Last Admin: 08/16/21 09:06 Dose: 2 mg Documented by: Rosuvastatin Calcium (Rosuvastatin Calcium 20 Mg Tab) 20 mg PO HS [facility] Stop: 09/01/21 20:59 Last Admin: 08/15/21 19:48 Dose: 20 mg Documented by: Sennosides (Senna 8.6 Mg Tab) 17.2 mg PO HS PRN PRN Reason: Constipation Last Admin: 08/15/21 19:47 Dose: 17.2 mg Documented by: Spironolactone (Spironolactone 12.5 Mg Tab) 12.5 mg PO DAILY [facility] Stop: 09/02/21 08:59 Last Admin: 08/16/21 09:06 Dose: 12.5 mg Documented by: Tramadol HCl (Tramadol Hcl 50 Mg Tablet) 50 mg PO TID PRN PRN Reason: MOD-SEVERE Pain4,5,6,7,8,9,10 Stop: 09/01/21 20:35 Last Admin: 08/15/21 23:44 Dose: 50 mg Documented by: Warfarin Sodium (Warfarin Sod 7.5 Mg Tab) 7.5 mg PO DAILY@1600 [facility] Stop: 09/15/21 15:59 (1) Hematoma of left thigh Encounter type: initial encounter Qualified Code(s): S70.12XA - Contusion of left thigh, initial encounter
[2021-08-16] MEDS: WARFARIN SOD 7.5 MG TAB PO SCH (16:07)
--- NOTE | 2021-08-16 16:17 | Hospitalist Progress Note ---
Date of Service August 16, 2021 Assessment & Plan (1) H/O mitral valve replacement with mechanical valve: (2) Nontraumatic intramuscular hematoma: Plan: Patient is a 65 yr female with H/O DM II diet controlled, CKD III, hypothyroidism, hyperlipidemia, atrial fibrillation, tachybrady syndrome, chronic diastolic CHF, history of rheumatic heart disease, CAD, varicose veins of both legs, GERD, generalized osteoarthritis, restless legs syndrome, S/P mechanical mitral valve replacement, TIA, Recurrent falls, generalized anxiety disorder who was recently admitted 07/18-07/25 for shortness of breath and leg swelling improved with iv diuresis; also had EGD 07/24 for barium pill stuck in esophagus and was discharged on lovenox 60 bid along with coumadin because of subtherapeutic INR (h/o mechanical MVR) presented to the ED 08/02 with worsening left thigh pain for the past 2 days [employer]. Intramuscular hematoma, non traumatic In setting of Lovenox/Coumadin use --CT LLE: Acute intramuscular hemorrhage within the left iliacus, iliopsoas muscles and adductor muscles. Associated extraperitoneal hemorrhage. At least moderate intramuscular hemorrhage. Proximal extent of intramuscular hemorrhage not imaged on this exam. No active extravasation within visualized portions of the intramuscular hemorrhage. Patent left common femoral and superficial femoral arteries. --Received Vit k --Hb 8.2 stable. Monitor Anticoagulation resumed--Currently on Heparin Coumadin Monitor INR:1.9 Will give Coumadin 7.5mg today Patient refuses SNF Fall precautions Mechanical MV on coumadin Permanent Afib H/o embolic AL and TIA Goal INR 3-3.5 Continue Metoprolol ON IV heparin and Coumadin for anticoagulation Continue IV Heparin until INR is therapeutic Appreciate Cardiology help ? Melena: Positive FOBT Needs anticoagulation for Mechanical MV valve. Patient understands the risk for bleeding and agrees with current management GI consulted: No EGD recommended Monitor H&H, transfuse as needed Continue PPI Electrolytes abnormality: Monitor and replete electrolytes as needed Hyponatremia: Likely Chronic Sodium 134 Monitor UTI Likely reactive to hematoma. Urine Cx: Coag Neg Staph Completed antibiotic course (Vanco>>Doxy) Possible asthmatic bronchitis Continue breo Nebs PRN CKD III Cr baseline 1.4-1.6 Cr at baseline Monitor renal function Chronic diastolic CHF Continue lasix and aldactone. Lasix (per cardio) upon DC: 40mg 3 days/wk and 80 mg 4 days/wk. BMP in 1 wk upon DC. BOBBY on Celexa DM II HbA1C 7 Continue SSI GERD on PPI DVT Px Coumadin, IV Heparin Code Status Full Code Admission and Anticipated Discharge Date Admission Date: August 02, 2021 Subjective Patient is seen and examined at bedside Left leg pain is much improved Denies any bleeding issues Also denies any chest pain, shortness of breath, dizziness, nausea, abdominal pain INR subtherapeutic today on IV heparin Patient needed to be discharged Review of Systems Review of Systems: All systems reviewed & are unremarkable except as noted in Subjective Physical Exam Physical Exam: Physical Exam: Vitals signs as noted above General Appearance:Thin, no apparent distress Head: normocephalic, Atraumatic Eyes: normal inspection, EOMI Neck: supple, Trachea midline Respiratory/Chest: Normal breath sounds, CTA, No accessory muscle use Cardiovascular: Irregularly Irregular, Mechanical S1, No murmur Abdomen/GI:Soft, Non tender, Bowel sounds present Extremities/Musculoskeletal:normal inspection, no edema Neurologic/Psych:AAOX3, grossly no focal neurological deficits Skin: normal color, warm Results & Data Results & Data ([facility]) Vital Signs (Past 12 Hours) Vital Signs Temp Pulse Resp BP Pulse Ox 08/16/21 14:07 80 18 98 08/16/21 11:44 36.5 C 86 18 128/65 97 08/16/21 10:49 83 18 98 08/16/21 08:07 36.5 C 63 18 113/64 96 08/16/21 07:12 82 18 98 Laboratory Results Short CBC 08/16/21 Range/Units 05:40 Hgb 8.2 L (12.0-16.0) g/dL Hct 27.0 L (37-47) %
[2021-08-16] MEDS: traMADol HCL 50 MG TABLET PO PRN (16:18)
[2021-08-16 20:09] LABS: Partial Thromboplastin Ratio 1.6; Partial Thromboplastin Time 44.8 Seconds (21.0-31.0)
[2021-08-16] MEDS: ROSUVASTATIN CALCIUM 20 MG TAB PO SCH (20:31)
[2021-08-16] MEDS: PANTOprazole 40 MG TAB PO SCH (20:32)
[2021-08-16] MEDS: HEPARIN SODIUM/DEXTROSE 25,000 UNITS/500 ML BAG IV SCH (20:34)
[2021-08-17] MEDS: traMADol HCL 50 MG TABLET PO PRN ×2 (00:45→13:20)
[2021-08-17] MEDS: MELATONIN 3 MG TAB PO PRN (00:45)
[2021-08-17 03:06] LABS: INR 2.2 (0.9-1.1); Prothrombin Time 22.6 Seconds (9.0-12.0)
[2021-08-17] MEDS: LEVOTHYROXINE SODIUM 100 MCG TABLET PO SCH (05:55)
[2021-08-17] MEDS: ALBUT/IPRATROP 3MG/0.5MG NEB 3 ML VIAL INH SCH ×4 (07:10→19:15)
[2021-08-17] MEDS: INSULIN ASPART PER UNIT SC SCH ×4 (08:12→21:16)
[2021-08-17] MEDS: AZELASTINE HCL 0.1% NASAL 200 SPRAYS/27,400 MCG BTL SCH ×2 (08:15→20:50)
[2021-08-17] MEDS: ASPIRIN 81 MG ECTAB PO SCH (08:15)
[2021-08-17] MEDS: CITALOPRAM 20 MG TAB PO SCH (08:16)
[2021-08-17] MEDS: FUROSEMIDE 40 MG TAB PO SCH (08:17)
[2021-08-17] MEDS: guaiFENesin 600 MG TABCR PO SCH ×2 (08:17→20:50)
[2021-08-17] MEDS: FOLIC ACID 1 MG TAB PO SCH (08:17)
[2021-08-17] MEDS: rOPINIRole HCL 2 MG TABLET PO SCH ×3 (08:18→20:50)
[2021-08-17] MEDS: METOPROLOL TARTRATE 25 MG TAB PO SCH ×2 (08:18→20:50)
[2021-08-17] MEDS: BENZONATATE 100 MG CAPSULE PO SCH ×3 (08:24→20:55)
[2021-08-17] MEDS: DOCUSATE SODIUM 100 MG CAP PO SCH ×2 (08:24→20:55)
[2021-08-17] MEDS: FLUTICASONE/VILANTEROL 100/25MCG 14 PUFFS/INHALER INH SCH (08:26)
[2021-08-17] MEDS: SPIRONOLACTONE 12.5 MG TAB PO SCH (08:27)
[2021-08-17] MEDS: WARFARIN SOD 7.5 MG TAB PO SCH (16:03)
--- NOTE | 2021-08-17 17:39 | Hospitalist Progress Note ---
Date of Service August 17, 2021 Assessment & Plan (1) H/O mitral valve replacement with mechanical valve: (2) Nontraumatic intramuscular hematoma: Plan: Patient is a 65 yr female with H/O DM II diet controlled, CKD III, hypothyroidism, hyperlipidemia, atrial fibrillation, tachybrady syndrome, chronic diastolic CHF, history of rheumatic heart disease, CAD, varicose veins of both legs, GERD, generalized osteoarthritis, restless legs syndrome, S/P mechanical mitral valve replacement, TIA, Recurrent falls, generalized anxiety disorder who was recently admitted 07/18-07/25 for shortness of breath and leg swelling improved with iv diuresis; also had EGD 07/24 for barium pill stuck in esophagus and was discharged on lovenox 60 bid along with coumadin because of subtherapeutic INR (h/o mechanical MVR) presented to the ED 08/02 with worsening left thigh pain for the past 2 days 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 Intramuscular hematoma, non traumatic In setting of Lovenox/Coumadin use --CT LLE: Acute intramuscular hemorrhage within the left iliacus, iliopsoas muscles and adductor muscles. Associated extraperitoneal hemorrhage. At least moderate intramuscular hemorrhage. Proximal extent of intramuscular hemorrhage not imaged on this exam. No active extravasation within visualized portions of the intramuscular hemorrhage. Patent left common femoral and superficial femoral arteries. --Received Vit k --Hb 8.2 stable. Monitor Anticoagulation resumed--Currently on Heparin Coumadin Monitor INR:2.2 Continue Coumadin 7.5mg today Patient refuses SNF Fall precautions Needs follow-up with Coumadin clinic upon discharge Mechanical MV on coumadin Permanent Afib H/o embolic [place] and TIA Goal INR 3-3.5 Previously on Aspirin and Plavix which were discontinued as per patient Continue Metoprolol ON IV heparin and Coumadin for anticoagulation Continue IV Heparin until INR is therapeutic Appreciate Cardiology help ? Melena: Positive FOBT Needs anticoagulation for Mechanical MV valve. Patient understands the risk for bleeding and agrees with current management GI consulted: No EGD recommended Monitor H&H, transfuse as needed Continue PPI Electrolytes abnormality: Monitor and replete electrolytes as needed Hyponatremia: Likely Chronic Sodium 134 Monitor UTI Likely reactive to hematoma. Urine Cx: Coag Neg Staph Completed antibiotic course (Vanco>>Doxy) Possible asthmatic bronchitis Continue breo Nebs PRN CKD III Cr baseline 1.4-1.6 Cr at baseline Monitor renal function Chronic diastolic CHF Continue lasix and aldactone. Lasix (per cardio) upon DC: 40mg 3 days/wk and 80 mg 4 days/wk. BMP in 1 wk upon DC. BOBBY on Celexa DM II HbA1C 7 Continue SSI GERD on PPI DVT Px Coumadin, IV Heparin till INR is therapeutic Code Status Full Code Admission and Anticipated Discharge Date Admission Date: August 02, 2021 Subjective Patient is seen and examined at bedside No new complaints Doing well today Discussed with Cardiology INR 2.2 Denies any chest pain, shortness of breath, dizziness, nausea, abdominal pain, bleeding issues Review of Systems Review of Systems: All systems reviewed & are unremarkable except as noted in Subjective Physical Exam Physical Exam: Physical Exam: Vitals signs as noted above General Appearance:Thin, no apparent distress Head: normocephalic, Atraumatic Eyes: normal inspection, EOMI Neck: supple, Trachea midline Respiratory/Chest: Normal breath sounds, CTA, No accessory muscle use Cardiovascular: Irregularly Irregular, Mechanical S1, No murmur Abdomen/GI:Soft, Non tender, Bowel sounds present Extremities/Musculoskeletal:normal inspection, no edema Neurologic/Psych:AAOX3, grossly no focal neurological deficits Skin: normal color, warm Results & Data Results & Data ([facility]) Vital Signs (Past 12 Hours) Vital Signs Temp Pulse Pulse Resp BP Pulse Ox 08/17/21 15:02 36.9 C 80 16 108/52 L 98 08/17/21 14:58 83 18 98 08/17/21 11:32 36.9 C 68 16 94/48 L 95 08/17/21 10:56 66 18 95 08/17/21 07:58 36.8 C 70 16 92/48 L 98 08/17/21 07:33 61 08/17/21 07:10 68 18 97
[2021-08-17] MEDS: ROSUVASTATIN CALCIUM 20 MG TAB PO SCH (20:50)
[2021-08-17] MEDS: PANTOprazole 40 MG TAB PO SCH (20:50)
[2021-08-17] MEDS: SENNA 8.6 MG TAB PO PRN (20:50)
[2021-08-17] MEDS: HEPARIN SODIUM/DEXTROSE 25,000 UNITS/500 ML BAG IV SCH (21:00)
[2021-08-18] MEDS: traMADol HCL 50 MG TABLET PO PRN ×2 (01:34→10:56)
[2021-08-18] MEDS: LEVOTHYROXINE SODIUM 100 MCG TABLET PO SCH (06:13)
[2021-08-18] MEDS: ALBUT/IPRATROP 3MG/0.5MG NEB 3 ML VIAL INH SCH ×3 (07:08→14:49)
[2021-08-18 07:39] LABS: Basophils # (auto) 0.01 K/uL (0-0.2); Basophils % (auto) 0.2 %; Eosinophils # (auto) 0.22 K/uL (0-0.5); Eosinophils % (auto) 4.3 %; Hematocrit (blood only) 30.4 % (37-47); Hemoglobin 9.1 g/dL (12.0-16.0); Immature Granulocytes # (auto) 0.03 K/uL (0.00-0.02); Immature Granulocytes % (auto) 0.6 %; Lymphocytes # (auto) 0.83 K/uL (1.2-3.4); Lymphocytes % (auto) 16.4 %; Mean Corpuscular Hemoglobin 26.2 pg (25-34); Mean Corpuscular Hgb Conc 29.9 g/dL (32-36); Mean Corpuscular Volume 87.6 fL (80-100); Mean Platelet Volume 10.3 fL (7.4-10.4); Monocytes # (auto) 0.49 K/uL (0.11-0.59); Monocytes % (auto) 9.7 %; Neutrophils # (auto) 3.49 K/uL (1.4-6.5); Neutrophils % (auto) 68.8 %; Platelet Count 207 K/uL (130-400); RDW Coefficient of Variation 18.6 % (11.5-14.5); RDW Standard Deviation 59.1 fL (36.4-46.3); Red Blood Count 3.47 M/uL (4.2-5.4); White Blood Count 5.07 K/uL (4.8-10.8)
[2021-08-18 07:55] LABS: BUN Creatinine Ratio 15.5 (10-20); Creatinine Clr Calc Pharmacy 32.6 ml/min; Est GFR (African American) 49.3 ml/min; Est GFR (Non-African American) 42.5 ml/min; Potassium 3.7 mmol/L (3.5-5.1)
[2021-08-18 08:08] LABS: INR 3.3 (0.9-1.1); Partial Thromboplastin Ratio 2.4; Prothrombin Time 32.6 Seconds (9.0-12.0)
[2021-08-18 08:27] LABS: Partial Thromboplastin Time 66.6 Seconds (21.0-31.0)
[2021-08-18] MEDS: INSULIN ASPART PER UNIT SC SCH ×2 (08:38→12:00)
[2021-08-18] MEDS: AZELASTINE HCL 0.1% NASAL 200 SPRAYS/27,400 MCG BTL SCH (09:09)
[2021-08-18] MEDS: rOPINIRole HCL 2 MG TABLET PO SCH ×2 (09:10→15:08)
[2021-08-18] MEDS: METOPROLOL TARTRATE 25 MG TAB PO SCH (09:10)
[2021-08-18] MEDS: FLUTICASONE/VILANTEROL 100/25MCG 14 PUFFS/INHALER INH SCH (09:10)
[2021-08-18] MEDS: FOLIC ACID 1 MG TAB PO SCH (09:11)
[2021-08-18] MEDS: guaiFENesin 600 MG TABCR PO SCH (09:11)
[2021-08-18] MEDS: CITALOPRAM 20 MG TAB PO SCH (09:11)
[2021-08-18] MEDS: SPIRONOLACTONE 12.5 MG TAB PO SCH (09:13)
[2021-08-18] MEDS: FUROSEMIDE 40 MG TAB PO SCH (09:13)
[2021-08-18] MEDS: BENZONATATE 100 MG CAPSULE PO SCH (09:17)
[2021-08-18] MEDS: DOCUSATE SODIUM 100 MG CAP PO SCH (09:17)
--- NOTE | 2021-08-18 09:23 | Cardiology Progress Note ---
Date of Service August 18, 2021 Assessment & Plan (1) Nontraumatic intramuscular hematoma: (2) Hematoma of left thigh: (3) Rheumatic heart disease: (4) H/O mitral valve replacement with mechanical valve: (5) Chronic diastolic CHF (congestive heart failure): (6) History of CVA (cerebrovascular accident): (7) Myocardial infarction: (8) Permanent atrial fibrillation: Plan: The patient's INR today is 3.3. Her heparin has been stopped. I believe she may be discharged home today. After discharge she should follow her usual warfarin dose at home. Contact should be made with the coag clinic so that they can manage. She has a follow-up with Dr. Molina on August 22 that she will keep. Admission and Anticipated Discharge Date Admission Date: August 02, 2021 Subjective The patient had an uneventful night. INR today is 3.3 Review of Systems Review of Systems: Review of Systems: See HPI for pertinent positives. All other 10 point review of systems are negative. Physical Exam Physical Exam: General: no acute distress and stated age Head: normocephalic, no masses, lesions, tenderness or abnormalities Eyes: conjunctiva are pink and non-injected, sclera clear Neck: supple, no adenopathy, no bruits, normal jugular venous pulse, no hepatojugular reflux Chest: normal shape and normal respiratory effort Lungs: clear to auscultation and percussion Cardiac Exam: - regular rate & rhythm, no murmurs gallops or rubs -mechanical S1, normal S2 Pulses: 2(+) throughout Abdomen: abdomen soft, non-tender, no abnormal masses and no hepatosplenomegaly Musculoskeletal: no gait disturbance, no joint inflammation, no deforming arthritis Extremities: no edema and no cyanosis Neuro: grossly normal exam Results & Data ([facility]) Vital Signs (Past 12 Hours) Vital Signs Temp Pulse Pulse Resp BP Pulse Ox 08/18/21 07:43 36.5 C 72 18 124/70 96 08/18/21 07:38 71 18 96 08/18/21 03:17 36.7 C 61 20 96/54 L 100 08/17/21 22:34 36.7 C 76 20 101/57 L 97 08/17/21 22:16 77 Laboratory Results Laboratory Results - last 24 hr 08/17/21 08/17/21 08/17/21 11:44 16:37 20:39 WBC RBC Hgb Hct MCV MCH MCHC RDW Std Deviation RDW Coeff of Courtney Plt Count MPV Immature Gran % (Auto) Neut % (Auto) Lymph % (Auto) [place] % (Auto) Eos % (Auto) Baso % (Auto) Neut # (Auto) Lymph # (Auto) [place] # (Auto) Eos # (Auto) Baso # (Auto) Immature Gran # (Auto) PT INR APTT PTT Ratio Sodium Potassium Chloride Carbon Dioxide Anion Gap BUN Creatinine Est Cr Clr Drug Dosing Est GFR ( Amer) Est GFR (Non-Af Amer) BUN/Creatinine Ratio Glucose POC Glucose 99 121 H 145 H Calcium 08/18/21 08/18/21 08/18/21 06:48 06:51 06:51 WBC 5.07 RBC 3.47 L Hgb 9.1 L Hct 30.4 L MCV 87.6 MCH 26.2 MCHC 29.9 L RDW Std Deviation 59.1 H RDW Coeff of Courtney 18.6 H Plt Count 207 MPV 10.3 Immature Gran % (Auto) 0.6 Neut % (Auto) 68.8 Lymph % (Auto) 16.4 [place] % (Auto) 9.7 Eos % (Auto) 4.3 Baso % (Auto) 0.2 Neut # (Auto) 3.49 Lymph # (Auto) 0.83 L [place] # (Auto) 0.49 Eos # (Auto) 0.22 Baso # (Auto) 0.01 Immature Gran # (Auto) 0.03 H PT 32.6 H INR 3.3 H APTT 66.6 H* PTT Ratio 2.4 Sodium 131 L Potassium 3.7 Chloride 94 L Carbon Dioxide 32 Anion Gap 5 BUN 20 Creatinine 1.29 H Est Cr Clr Drug Dosing 32.6 Est GFR ( Amer) 49.3 Est GFR (Non-Af Amer) 42.5 BUN/Creatinine Ratio 15.5 Glucose 89 POC Glucose Calcium 10.0 08/18/21 07:37 WBC RBC Hgb Hct MCV MCH MCHC RDW Std Deviation RDW Coeff of Courtney Plt Count MPV Immature Gran % (Auto) Neut % (Auto) Lymph % (Auto) [place] % (Auto) Eos % (Auto) Baso % (Auto) Neut # (Auto) Lymph # (Auto) [place] # (Auto) Eos # (Auto) Baso # (Auto) Immature Gran # (Auto) PT INR APTT PTT Ratio Sodium Potassium Chloride Carbon Dioxide Anion Gap BUN Creatinine Est Cr Clr Drug Dosing Est GFR ( Amer) Est GFR (Non-Af Amer) BUN/Creatinine Ratio Glucose POC Glucose 94 Calcium Medications Administered Current Inpatient Medications Acetaminophen (Acetaminophen 325 Mg Tab) 650 mg PO Q6H PRN PRN Reason: MILD Pain 1,2,3 Stop: 09/01/21 20:35 Last Admin: 08/17/21 16:04 Dose: 650 mg Documented by: Albuterol (Albuterol Hfa 8 Gm Inhaler (Combivent Respimat P&T Subs)) 1 puffs INH Q6H PRN PRN Reason: SOB or wheezing Stop: 09/01/21 21:27 Albuterol (Albut/Ipratrop 3mg/0.5mg Neb 3 Ml Vial) 3 ml INH QIDR PRISCILA; Protocol Stop: 09/02/21 10:59 Last Admin: 08/18/21 07:08 Dose: 3 ml Documented by: Azelastine HCl (Azelastine Hcl 0.1% Nasal 200 Sprays/27,400 Mcg Btl) 2 sprays NA [facility] Stop: 09/02/21 08:59 Last Admin: 08/17/21 20:50 Dose: 2 sprays Documented by: Benzonatate (Benzonatate 100 Mg Capsule) 100 mg PO TID [facility] Stop: 09/05/21 20:59 Last Admin: 08/17/21 20:55 Dose: 100 mg Documented by: Citalopram Hydrobromide (Citalopram 20 Mg Tab) 10 mg PO DAILY [facility] Stop: 09/02/21 08:59 Last Admin: 08/17/21 08:16 Dose: 10 mg Documented by: Dextrose (Dextrose 50% 50 Ml Syringe) 25 - 50 ml IV UD PRN; Protocol PRN Reason: Hypoglycemia Protocol Stop: 09/01/21 20:35 Docusate Sodium (Docusate Sodium 100 Mg Cap) 100 mg PO BID [facility] Stop: 09/05/21 15:39 Last Admin: 08/17/21 20:55 Dose: 100 mg Documented by: Fluticasone/Vilanterol (Fluticasone/Vilanterol 100/25mcg 14 Puffs/Inhaler) 1 puffs INH DAILY [facility] Stop: 09/02/21 08:59 Last Admin: 08/17/21 08:26 Dose: Not Given Documented by: Folic Acid (Folic Acid 1 Mg Tab) 1 mg PO QAM [facility] Stop: 09/02/21 08:59 Last Admin: 08/17/21 08:17 Dose: 1 mg Documented by: Furosemide (Furosemide 40 Mg Tab) 40 mg PO QAM PRISCIL[facility] Stop: 09/03/21 09:14 Last Admin: 08/17/21 08:17 Dose: 40 mg Documented by: Glucagon (Glucagon For Inj 1 Mg Vial) 1 mg SQ UD PRN; Protocol PRN Reason: Hypoglycemia Protocol Stop: 09/01/21 20:35 Glucose (Glucose 10 Tabs/Tube) 4 - 8 tabs PO UD PRN; Protocol PRN Reason: Hypoglycemia Protocol Stop: 09/01/21 20:35 Glucose (Glucose 40% Gel 15 Gm Tube) 15 - 30 gm PO UD PRN; Protocol PRN Reason: Hypoglycemia Protocol Stop: 09/01/21 20:35 Guaifenesin (Guaifenesin 600 Mg Tabcr) 600 mg PO Q12 PRISC[facility] Stop: 09/01/21 20:59 Last Admin: 08/17/21 20:50 Dose: 600 mg Documented by: Insulin Aspart (Insulin Aspart Per Unit) 0 units SC ACHS PRISC[facility] Stop: 09/09/21 16:29 Last Admin: 08/18/21 08:38 Dose: Not Given Documented by: Ipratropium Hayes (Ipratropium Hfa Inhaler (Combivent Respimat P&T Subs)) 1 puffs INH Q6H PRN PRN Reason: SOB or wheezing Stop: 09/01/21 21:27 Levothyroxine Sodium (Levothyroxine Sodium 100 Mcg Tablet) 100 mcg PO DAILYBB PRISCIL[facility] Stop: 09/02/21 06:29 Last Admin: 08/18/21 06:13 Dose: 100 mcg Documented by: Magnesium Hydroxide (Magnesium Hydroxide Susp 30 Ml Udc) 5 ml PO DAILY PRN PRN Reason: Constipation Stop: 09/01/21 20:35 Melatonin (Melatonin 3 Mg Tab) 3 mg PO HS PRN PRN Reason: Sleep Stop: 09/09/21 21:27 Last Admin: 08/17/21 00:45 Dose: 3 mg Documented by: Metoclopramide HCl (Metoclopramide Hcl 10 Mg Tablet) 10 mg PO DAILY PRN PRN Reason: Nausea Stop: 09/01/21 20:35 Last Admin: 08/14/21 08:42 Dose: 10 mg Documented by: Metoprolol Tartrate (Metoprolol Tartrate 25 Mg Tab) 25 mg PO BID [facility] Stop: 09/03/21 08:59 Last Admin: 08/17/21 20:50 Dose: 25 mg Documented by: Miscellaneous (Carbohydrates For Hypoglycemia ) 15 - 30 gm PO UD PRN PRN Reason: Hypoglycemia Protocol Stop: 09/01/21 20:35 Nitroglycerin (Nitroglycerin Sl 0.4 Mg/Tab Tab) 0.4 mg SL Q5M PRN PRN Reason: Chest Pain Stop: 09/01/21 20:35 Last Admin: 08/13/21 22:47 Dose: 0.4 mg Documented by: Pantoprazole Sodium (Pantoprazole 40 Mg Tab) 40 mg PO PM PRISCILA Stop: 09/01/21 20:59 Last Admin: 08/17/21 20:50 Dose: 40 mg Documented by: Ropinirole HCl (Ropinirole Hcl 2 Mg Tablet) 2 mg PO TID [facility] Stop: 09/01/21 20:59 Last Admin: 08/17/21 20:50 Dose: 2 mg Documented by: Rosuvastatin Calcium (Rosuvastatin Calcium 20 Mg Tab) 20 mg PO HS [facility] Stop: 09/01/21 20:59 Last Admin: 08/17/21 20:50 Dose: 20 mg Documented by: Sennosides (Senna 8.6 Mg Tab) 17.2 mg PO HS PRN PRN Reason: Constipation Last Admin: 08/17/21 20:50 Dose: 17.2 mg Documented by: Spironolactone (Spironolactone 12.5 Mg Tab) 12.5 mg PO DAILY [facility] Stop: 09/02/21 08:59 Last Admin: 08/17/21 08:27 Dose: Not Given Documented by: Tramadol HCl (Tramadol Hcl 50 Mg Tablet) 50 mg PO TID PRN PRN Reason: MOD-SEVERE Pain4,5,6,7,8,9,10 Stop: 09/01/21 20:35 Last Admin: 08/18/21 01:34 Dose: 50 mg Documented by: Warfarin Sodium (Warfarin Sod 5 Mg Tab) 5 mg PO DAILY@1600 [facility] Stop: 09/17/21 15:59 (1) Hematoma of left thigh Encounter type: initial encounter Qualified Code(s): S70.12XA - Contusion of left thigh, initial encounter
--- NOTE | 2021-08-18 13:55 | Hospitalist Progress Note ---
Date of Service August 18, 2021 Assessment & Plan (1) H/O mitral valve replacement with mechanical valve: (2) Nontraumatic intramuscular hematoma: Plan: Patient is a 65 yr female with H/O DM II diet controlled, CKD III, hypothyroidism, hyperlipidemia, atrial fibrillation, tachybrady syndrome, chronic diastolic CHF, history of rheumatic heart disease, CAD, varicose veins of both legs, GERD, generalized osteoarthritis, restless legs syndrome, S/P mechanical mitral valve replacement, TIA, Recurrent falls, generalized anxiety disorder who was recently admitted 07/18-07/25 for shortness of breath and leg swelling improved with iv diuresis; also had EGD 07/24 for barium pill stuck in esophagus and was discharged on lovenox 60 bid along with coumadin because of subtherapeutic INR (h/o mechanical MVR) presented to the ED 08/02 with worsening left thigh pain for the past 2 days [employer]AD RELAY [employer]. Intramuscular hematoma, non traumatic In setting of Lovenox/Coumadin use --CT LLE: Acute intramuscular hemorrhage within the left iliacus, iliopsoas muscles and adductor muscles. Associated extraperitoneal hemorrhage. At least moderate intramuscular hemorrhage. Proximal extent of intramuscular hemorrhage not imaged on this exam. No active extravasation within visualized portions of the intramuscular hemorrhage. Patent left common femoral and superficial femoral arteries. --Received Vit k --Hb 8.2 stable. Monitor Anticoagulation resumed--Currently on Heparin Coumadin Monitor INR:3.3 today Continue Coumadin Patient refuses SNF Fall precautions Needs follow-up with Coumadin clinic upon discharge Mechanical MV on coumadin Permanent Afib H/o embolic [place] and TIA Goal INR 3-3.5 Previously on Aspirin and Plavix which were discontinued as per patient Continue Metoprolol ON IV heparin discontinued Continue Coumadin Appreciate Cardiology help ? Melena: Positive FOBT Needs anticoagulation for Mechanical MV valve. Patient understands the risk for bleeding and agrees with current management GI consulted: No EGD recommended Monitor H&H, transfuse as needed Continue PPI Electrolytes abnormality: Monitor and replete electrolytes as needed Hyponatremia: Likely Chronic Sodium 131 Monitor UTI Likely reactive to hematoma. Urine Cx: Coag Neg Staph Completed antibiotic course (Vanco>>Doxy) Possible asthmatic bronchitis Continue breo Nebs PRN CKD III Cr baseline 1.4-1.6 Cr at baseline Monitor renal function Chronic diastolic CHF Continue lasix and aldactone. Lasix (per cardio) upon DC: 40mg 3 days/wk and 80 mg 4 days/wk. BMP in 1 wk upon DC. Repositioning is required that is not feasible in a standard bed and head of bed elevated at least 30 degrees. Will need hospital bed BOBBY on Celexa DM II HbA1C 7 Continue SSI GERD on PPI DVT Px Coumadin Code Status Full Code Disposition Refused Rehab Home with Home Health Admission and Anticipated Discharge Date Admission Date: August 02, 2021 Subjective Patient is seen and examined at bedside Doing well today INR therapeutic Denies any chest pain, shortness of breath, dizziness, nausea, abdominal pain, bleeding issues Plan to discharge home Review of Systems Review of Systems: All systems reviewed & are unremarkable except as noted in Subjective Physical Exam Physical Exam: Physical Exam: Vitals signs as noted above General Appearance:Thin, no apparent distress Head: normocephalic, Atraumatic Eyes: normal inspection, EOMI Neck: supple, Trachea midline Respiratory/Chest: Normal breath sounds, CTA, No accessory muscle use Cardiovascular: Irregularly Irregular, Mechanical S1, No murmur Abdomen/GI:Soft, Non tender, Bowel sounds present Extremities/Musculoskeletal:normal inspection, no edema Neurologic/Psych:AAOX3, grossly no focal neurological deficits Skin: normal color, warm Results & Data Results & Data ([facility]) Vital Signs (Past 12 Hours) Vital Signs Temp Pulse Pulse Resp BP Pulse Ox 08/18/21 11:52 36.8 C 83 18 126/75 97 08/18/21 11:41 64 08/18/21 11:08 72 18 97 08/18/21 07:43 36.5 C 72 18 124/70 96 08/18/21 07:38 71 18 96 08/18/21 03:17 36.7 C 61 20 96/54 L 100 Laboratory Results Short CBC 08/18/21 Range/Units 06:48 WBC 5.07 (4.8-10.8) K/uL Hgb 9.1 L (12.0-16.0) g/dL Hct 30.4 L (37-47) % Plt Count 207 (130-400) K/uL BMP 08/18/21 06:51 Sodium 131 L Potassium 3.7 Chloride 94 L Carbon Dioxide 32 BUN 20 Creatinine 1.29 H Glucose 89 Calcium 10.0
--- NOTE | 2021-08-18 14:17 | Discharge Summary ---
Date of Service August 18, 2021 Admission HPI Per Admitting Provider 65-year-old female with past medical history significant for type 2 diabetes, currently not on any medications, chronic kidney disease stage III, hypothyroidism, hyperlipidemia, atrial fibrillation, tachybrady syndrome, h istory of syncope, status post loop recorder, chronic diastolic CHF, history of rheumatic heart disease, history of CAD, varicose veins of both legs, history of GERD, generalized osteoarthritis, restless legs syndrome, status post mechanical mitral valve replacement, history of TIA, history of recurrent falls, generalized anxiety disorder who was recently admitted 07/18-07/25 for shortness of breath and leg swelling improved with iv diuresis; also had EGD 07/24 for barium pill stuck in esophagus and was discharged on lovenox 60 bid along with coumadin because of subtherapeutic INR (h/o mechanical MVR) presented to the ED with worsening left leg pain for the past 2 days. States she was done with lovenox shot yesterday. She started with left groin pain 2 days back which progressively got worse until today that Admission Exam Per Admitting Provider Physical Exam Physical Exam: General: Sitting comfortably in bed, not in acute distress, on room air HEENT: EOMI, CORINA, MMM Chest: Clear breath sounds bilaterally, no wheezes or crackles CVS: Regular rate and rhythm, normal heart sounds, no murmur Abdomen: Soft, non tender, not distended, normal bowel sounds. No flank or abdominal pain Neuro: Awake, alert, oriented, conversing well, non focal Extremities: LLE Distal NV status intact- pulses palpable, sensation intact. bilateral feet cool to touch- no difference. ROM limited because of pain Principal Diagnosis Intramuscular hematoma, non traumatic Melena Urinary tract infection Subtherapeutic INR Discharge Data Allergies Allergy/AdvReac Type Severity Reaction Status Date / Time hydroxyzine Allergy Severe DYSTONIA Verified 08/02/21 15:44 prochlorperazine Allergy Severe NUCHAL Verified 08/02/21 15:44 DYSTONIA promethazine Allergy Severe NUCHAL Verified 08/02/21 15:44 DYSTONIA oxycodone Allergy Intermediate Numbness Verified 08/02/21 15:44 PERRY Inhibitors AdvReac Intermediate COUGH Verified 08/02/21 15:44 lisinopril AdvReac Intermediate Cough Verified 08/02/21 15:44 metformin AdvReac Intermediate DIARRHEA Verified 08/02/21 15:44 fartun AdvReac Intermediate AGITATION Verified 08/02/21 15:44 tetracycline AdvReac Intermediate DYSPEPSIA Verified 08/02/21 15:44 gabapentin AdvReac Drowsy Verified 08/02/21 15:44 NAUSEA MEDICINES Allergy Unknown SEE NOTE Uncoded 08/02/21 15:44 BELOW Consultations 08/02/21 16:57 ED Decision to Admit Stat 08/02/21 18:38 Consult Cardiology Routine 08/08/21 15:30 Consult Gastroenterology Routine Ordered Studies 08/02/21 13:26 CT angio femur LT wo/w con Stat Hospital Course (1) H/O mitral valve replacement with mechanical valve: (2) Nontraumatic intramuscular hematoma: Patient is a 65 yr female with H/O DM II diet controlled, CKD III, hypothyroidism, hyperlipidemia, atrial fibrillation, tachybrady syndrome, chronic diastolic CHF, history of rheumatic heart disease, CAD, varicose veins of both legs, GERD, generalized osteoarthritis, restless legs syndrome, S/P mechanical mitral valve replacement, TIA, Recurrent falls, generalized anxiety disorder who was recently admitted 07/18-07/25 for shortness of breath and leg swelling improved with iv diuresis; also had EGD 07/24 for barium pill stuck in esophagus and was discharged on lovenox 60 bid along with coumadin because of subtherapeutic INR (h/o mechanical MVR) presented to the ED 08/02 with worsening left thigh pain for the past 2 days [employer]. Intramuscular hematoma, non traumatic In setting of Lovenox/Coumadin use --CT LLE: Acute intramuscular hemorrhage within the left iliacus, iliopsoas muscles and adductor muscles. Associated extraperitoneal hemorrhage. At least moderate intramuscular hemorrhage. Proximal extent of intramuscular hemorrhage not imaged on this exam. No active extravasation within visualized portions of the intramuscular hemorrhage. Patent left common femoral and superficial femora l arteries. --Received Vit k --Hb 8.2 stable. Monitor Anticoagulation resumed--Currently on Heparin Coumadin Monitor INR:3.3 today Continue Coumadin Patient refuses SNF Fall precautions Needs follow-up with Coumadin clinic upon discharge Mechanical MV on coumadin Permanent Afib H/o embolic CT and TIA Goal INR 3-3.5 Previously on Aspirin and Plavix which were discontinued as per patient Continue Metoprolol ON IV heparin discontinued Continue Coumadin Appreciate Cardiology help ? Melena: Positive FOBT Needs anticoagulation for Mechanical MV valve. Patient understands the risk for bleeding and agrees with current management GI consulted: No EGD recommended Monitor H&H, transfuse as needed Continue PPI Electrolytes abnormality: Monitor and replete electrolytes as needed Hyponatremia: Likely Chronic Sodium 131 Monitor UTI Likely reactive to hematoma. Urine Cx: Coag Neg Staph Completed antibiotic course (Vanco>>Doxy) Possible asthmatic bronchitis Continue breo Nebs PRN CKD III Cr baseline 1.4-1.6 Cr at baseline Monitor renal function Chronic diastolic CHF Continue lasix and aldactone. Lasix (per cardio) upon DC: 40mg 3 days/wk and 80 mg 4 days/wk. BMP in 1 wk upon DC. Repositioning is required that is not feasible in a standard bed and head of bed elevated at least 30 degrees. Will need hospital bed BOBBY on Celexa DM II HbA1C 7 Continue SSI GERD on PPI DVT Px Coumadin Code Status Full Code Disposition Refused Rehab Home with Home Health Total Time Total Time Spent Total Time Spent (In Minutes): 46 minutes Discharge Plan Discharge Items Patient Disposition: Home - Home Health Services Reason For Visit: LEG INJURY/PAIN Discharge Diagnosis: Intramuscular hematoma, non traumatic Melena Urinary tract infection Subtherapeutic INR Activity: Per Instructions section Exercise/Sports: Gradually increase as tolerated Non-emergency contact: Primary Care Provider and Specialist Call non-emergency contact if: you have any medication questions, your symptoms worsen, your pain is concerning for you and you have a fever Follow-up/Referrals: Hadley Molina MD [Physician] - (Date & Time 08/23/2021 2:30 PM Provider Hadley Molina MD Department Cardiology, [facility] ) John Blanco MD [Primary Care Provider] - (Date & Time 08/23/2021 3:00 PM Provider John Blanco MD Department Family Medicine [facility] ) Diet: Carb Consistent or DM2 and Heart Healthy Fluids: 1800ml (7 cups) Addtl Attending Provider Instructions: Follow-up with your primary care physician on 08/23/2021 3:00 PM Follow-up with your dry boss on 08/23/2021 2:30 PM Follow-up with Coumadin clinic for monitoring your INR and adjusting your Coumadin dose as needed. Please follow-up as soon as possible as advised. Seek immediate medical attention if your symptoms reoccur or worsen Please take all medications as instructed on discharge list below. Please call if you have any questions or problems. You can reach a [facility] hospitalist on duty at [facility] 24 hours a day by calling [phone] Pending Studies at Discharge: No Stand-Alone Forms: My [facility], Smoking Cessation Medications and DC Order Prescriptions: Continued levothyroxine 100 mcg tablet 100 mcg PO DAILYBB RF: 0 folic acid 1 mg Tablet 1 mg PO QAM Qty: 30 RF: 0 ropinirole 2 mg tablet 2 mg PO TID RF: 0 acetaminophen [Tylenol Extra Strength] 500 mg Tablet 500 mg PO Q6H PRN (Reason: Pain) RF: 0 spironolactone 25 mg Tablet 12.5 mg PO DAILY RF: 0 magnesium hydroxide [Milk of Magnesia] 400 mg/5 mL Suspension 5 ml PO DAILY PRN (Reason: Constipation) RF: 0 nitroglycerin [Nitrostat] 0.4 mg Tablet, Sublingual 0.4 mg Sublingual DIRECTED PRN (Reason: Chest Pain) RF: 0 omeprazole 20 mg Capsule,Delayed Release(Dr/Ec) 20 mg PO PM RF: 0 cholecalciferol (vitamin D3) [Vitamin D3] 1,000 unit Capsule 1,000 unit PO QAM RF: 0 ascorbic acid (vitamin C) [Vitamin C] 500 mg Tablet 500 mg PO DAILY RF: 0 citalopram 10 mg tablet 10 mg PO DAILY RF: 0 warfarin 5 mg Tablet 5 mg PO DIRECTED RF: 0 tramadol 50 mg tablet 50 mg PO TID PRN (Reason: Pain) RF: 0 bisacodyl 10 mg Suppository 10 mg NV DAILY RF: 0 metoclopramide HCl 10 mg Tablet 10 mg PO DAILY PRN (Reason: Nausea) RF: 0 sennosides 17.2 mg Tablet 17.2 mg PO HS PRN (Reason: Constipation) RF: 0 magnesium glycinate 100 mg Tablet 0 mg PO DAILY RF: 0 fluticasone furoate-vilanterol [Breo Ellipta] 100-25 mcg/dose Blister With Device 1 ea inhalation DAILY 30 Days Qty: 60 RF: 0 Combivent Respimat 20-100 mcg/actuation mist 1 puff inhalation Q6H PRN (Reason: shortness of breath or wheezing) Qty: 4 RF: 0 rosuvastatin 20 mg tablet 20 mg PO HS RF: 0 azelastine 137 mcg (0.1 %) aerosol,spray 2 spray INTRANASAL AMHS RF: 0 albuterol sulfate 90 mcg/actuation HFA aerosol inhaler 2 puff INHALATION Q4 PRN (Reason: cough,sob,wheeze) RF: 0 ipratropium-albuterol 0.5 mg-3 mg(2.5 mg base)/3 mL solution for nebulization 3 ml INHALATION QID RF: 0 Changed metoprolol tartrate 25 mg Tablet 25 mg PO BID Qty: 30 RF: 2 furosemide 80 mg Tablet 40 mg PO UD Qty: 30 RF: 0 Discontinued benzonatate 100 mg capsule 100 mg PO TID RF: 0 guaifenesin [Mucinex] 600 mg Tablet Extended Release 12hr 600 mg PO Q12 Qty: 30 RF: 0 Discharge Orders: Discharge Order (Routine); Ordered 08/18/21 Ordered By: Gume Garza Admission Data Admit Date/Time: 08/02/21 18:38 Attending Provider: Gume Garza Admit Provider: Khoa Barraza Primary Care Provider: John Blanco Other Providers: [facility] ; Khoa Barraza ; Hadley Molina ; Nancie Anderson ; Jose Angel Lara
[2021-08-18] MEDS ORDERED: WARFARIN SOD 5 MG TAB PO SCH (16:00)
== END 2021-08-18 16:05 | disposition home health service (06) | DRG 556 ==
LOC: ED 12:14 → 2S 18:38 → SUATTDRO 18:38 → 2S 20:51 → 2N 08-11 21:24

== ENCOUNTER 2022-02-18 17:22 | Inpatient (IN) ==
--- NOTE | 2022-02-18 17:35 | Emergency Department Note ---
Impression & Plan CHF (congestive heart failure), Cough, Acute dyspnea, Acute foot pain, Supratherapeutic INR ED Provider Note NAME: ALCIDES MAST AGE: 66 SEX: F : 1955 ARRIVES VIA: Walk-In INFORMANT: Patient, ED PROVIDER(S): Vincenzo Haynes MD CHIEF COMPLAINT: Shortness of breath MEDICAL DECISION MAKING: Patient presented due to concern for some shortness of breath. Blood work is obtained. The patient blood work shows she has a normal white count with mild anemia hemoglobin of 11. Patient is mild white count 11.5. The patient was ordered antibiotics as a precaution given her elevated white count as well as procalcitonin. TSH elevated free T4 normal. Patient's coags does show an INR greater than 9.6. I did speak with Dr. Dennison who recommended 3 mg of IV vitamin K. This was ordered. I did speak the on-call hospitalist Dr. Lara and the patient was admitted to medicine service. Critical Care: I have personally spent 45 minutes of critical care time in direct management of this patient. This includes bedside care, interpretation of diagnostic studies, and testing, discussion with consultants, patient, and family members, and other require inpatient management activities. This 45 minutes is in excess of all separately billable procedures. Prior /Outside records reviewed: None Differential diagnosis: Reactive airway disease, pneumonia, pneumothorax, COPD, CHF, infections, cardiac ischemia, pulmonary embolism, musculoskeletal, gastrointestinal, as well as other pathologies. Diagnostics, as interpreted by me: ECG: A. fib, rate of 93 normal QRS left axis deviation no obvious ST elevations. Cardiac monitoring: An order was placed for continuous cardiac monitoring. The monitor shows a rate of 92 with irregularly regular rhythm. Patient was placed on pulse oximetry Medical decision rules: None Imaging studies: See below HPI: Patient presents due to concern for shortness of breath. The patient has noticed some increasing difficulty with breathing as well as productive cough. The patient does have a known history of mitral valve replacement and is on Coumadin and was concerned that she had some blood in her mouth as well as her eyes and nose. The patient was on a recent cruise about 9 days prior to presenting and had been ill for the last 4 to 5 days. There were some issues with transportation and not taking certain medications and there [facility] and thus the patient has been without her medications for approximately 3 days although she did take her Lasix yesterday but does not take anything today. They came immediately from the airport to the hospital. Patient denies any chest pains. The patient also does complain of some left heel pain. The patient did have a repair of a prior TKA completed back in November at [facility]. Patient denies any overuse or trauma. Patient denies any additional exacerbating remitting factors PAST MEDICAL HISTORY: See Below PAST SURGICAL HISTORY: See Below SOCIAL HISTORY: See Below HOME MEDICATIONS: See Below ALLERGIES: See Below VITALS: See Below PHYSICAL EXAMINATION: GENERAL: NAD, wearing a mask, non-toxic. Wearing glasses. EYE EXAM: Normal conjunctiva. PERRL, no anisocoria and EOM's grossly intact w/o pain. NECK: Supple, no nuchal rigidity, no adenopathy, non-tender. No signs of meningismus. FROM of the neck with good chin to chest and neck extension. No stridor. LUNGS: Clear to auscultation. Normal chest wall mechanics. HEART: Irregular irregular, no MRG. ABDOMEN: Abdomen soft, non-tender, normo-active bowel sounds, no masses, no rebound or guarding. BACK: No CVA TTP. SKIN: No rashes and no bruising. UPPER EXTREMITIES: Upper extremities are grossly normal. LOWER EXTREMITIES: Grossly normal, left greater than right lower extremity edema with mild pain to the left heel, neurovascular tact distally. NEURO EXAM: A&O x3, cranial nerves II-XII grossly intact, normal speech, moves all 4 extremities. 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 migraine vs. stress related)-- plavix since discontinued Surgical History H/O radioactive iodine thyroid ablation H/O: hysterectomy History of cardiac cath 2000= NO STENTS History of colonoscopy History of tonsillectomy and adenoidectomy History of total left knee replacement Hx of appendectomy Hx of cholecystectomy Hx of mitral valve replacement 1993 (rheumatic valvular disease) Hx of tubal ligation Family History Uncle , of [place] in his 40s Coronary heart disease Social History Smoking Status: Never smoker Second Hand Exposure: No; Do You Dip or Chew Tobacco: No; Hx Alcohol Use: Yes Alcohol type: wine Hx Substance Use: No Preferred Language: Haitian Communication Ability: Effective Workforce Planning Analyst Required: No Beliefs That Will Affect Care: Oriental Orthodox Oriental Orthodox Beliefs: Episcopal marital status: Single Current Living Situation: Alone Current Living Situation Comment: takes care of mother current occupational status: disabled How many Children do You have: 0 Other Information That Helps Us Care for You: No Feels Safe at Home: Yes Safety Concerns: Feels Safe At This Time Assistive Devices: Cane, Hospital Bed, Nebulizer, Walker and Wheelchair Allergies Allergies Allergy/AdvReac Type Severity Reaction Status Date / Time hydroxyzine Allergy Severe DYSTONIA Verified 02/18/22 19:32 prochlorperazine Allergy Severe NUCHAL Verified 02/18/22 19:32 DYSTONIA promethazine Allergy Severe NUCHAL Verified 02/18/22 19:32 DYSTONIA oxycodone Allergy Intermediate Numbness Verified 02/18/22 19:32 PERRY Inhibitors AdvReac Intermediate COUGH Verified 02/18/22 19:32 gabapentin AdvReac Intermediate Drowsy Verified 02/18/22 19:32 lisinopril AdvReac Intermediate Cough Verified 02/18/22 19:32 metformin AdvReac Intermediate DIARRHEA Verified 02/18/22 19:32 parsley AdvReac Intermediate AGITATION Verified 02/18/22 19:32 tetracycline AdvReac Intermediate DYSPEPSIA Verified 02/18/22 19:32 NAUSEA MEDICINES Allergy Unknown SEE NOTE Uncoded 02/18/22 19:32 BELOW Home Meds Home Medications Medication Instructions Recorded Confirmed cholecalciferol (vitamin D3) 25 1,000 unit PO QAM 12/05/17 02/18/22 mcg (1,000 unit) capsule (Vitamin D3) nitroglycerin 0.4 mg sublingual 0.4 mg sublingual DIRECTED PRN 12/05/17 02/18/22 tablet (Nitrostat) Chest Pain omeprazole 20 mg capsule,delayed 20 mg PO PM 12/05/17 02/18/22 release levothyroxine 100 mcg tablet 100 mcg PO DAILYBB 05/18/18 02/18/22 magnesium hydroxide 400 mg/5 mL 5 ml PO DAILY PRN Constipation 12/31/19 02/18/22 oral suspension (Milk of Magnesia) spironolactone 25 mg tablet 12.5 mg PO QAM 12/31/19 02/18/22 rosuvastatin 20 mg tablet 20 mg PO HS 10/15/20 02/18/22 bisacodyl 10 mg rectal suppository 10 mg CA DAILY PRN as directed 07/18/21 02/18/22 citalopram 10 mg tablet 10 mg PO DAILY 07/18/21 02/18/22 sennosides 17.2 mg tablet 17.2 mg PO HS PRN Constipation 07/18/21 02/18/22 tramadol 50 mg tablet 50 mg PO TID PRN Pain 07/18/21 02/18/22 warfarin 5 mg tablet 5 mg PO DIRECTED 07/18/21 02/18/22 albuterol sulfate 90 mcg/actuation 2 puff inhalation Q4 PRN 08/02/21 02/18/22 aerosol inhaler cough,sob,wheeze azelastine 137 mcg (0.1 %) nasal 2 spray intranasal AMHS 08/02/21 02/18/22 spray aerosol ropinirole 2 mg tablet 2 mg PO DAILY 09/01/21 02/18/22 Magnesium Glycinate 665 665 mg PO DAILY 11/30/21 02/18/22 furosemide 40 mg tablet 40 mg PO 3XWK 11/30/21 02/18/22 furosemide 40 mg tablet 80 mg PO 4XWK 11/30/21 02/18/22 valacyclovir 1 gram tablet 2 mg PO AMPM PRN Cold Sores 11/30/21 02/18/22 ipratropium 20 mcg-albuterol 100 1 puff inhalation QID PRN 02/18/22 02/18/22 mcg/actuation mist for inhalation Shortness Of Breath (Combivent Respimat) Previous Rx's Medication Instructions Recorded folic acid 1 mg tablet 1 mg PO QAM #30 tabs 05/21/18 metoprolol tartrate 25 mg tablet 25 mg PO BID #30 tabs 08/18/21 Incentive Spirometer #1 ea 09/05/21 ipratropium 0.5 mg-albuterol 3 mg 3 ml inhalation QID PRN shortness 01/29/22 (2.5 mg base)/3 mL nebulization of breath or wheezing #1,080 mL soln benzonatate 100 mg capsule 100 mg PO Q8H PRN cough #20 caps 02/23/22 guaifenesin 200 mg tablet 200 mg PO TID PRN cough #20 tabs 02/23/22 prednisone 10 mg tablet 10 mg PO DAILY #2 tabs 02/23/22 Results & Data (ED) Vital Signs Vital Signs - 24 hr 02/18/22 17:29 Temperature 36.8 C Temperature Source Temporal Artery Scan Pulse Rate 94 H Respiratory Rate 20 Respiratory Effort / Characteristics Non-Labored Spontaneous Respiratory Depth Normal Respiratory Pattern Regular Blood Pressure 144/61 H Blood Pressure Mean 88 Pulse Oximetry 95 Oxygen Delivery Method Room Air Sepsis Recent Fever Within 48 Hours No Sepsis New/Unexplained Change in Mental Status No Sepsis Action Taken by Nursing No Action Required Home Medications Current Medication List: was personally reviewed by me Laboratory Data Attestation: I reviewed the patient's lab results. 02/23/22 06:17 02/23/22 06:17 Lab Results 02/18/22 02/18/22 02/18/22 Range/Units 18:00 18:00 18:00 WBC 11.54 H (4.8-10.8) K/ul RBC 4.25 (3.93-5.22) M/uL Hgb 11.0 L (12.0-16.0) g/dl Hct 32.5 L (34.1-44.9) % MCV 76.5 L (80.0-100.0) fL MCH 25.9 (25.0-34.0) pg MCHC 33.8 (32.0-36.0) g/dL RDW Std Deviation 45.1 (36.4-46.3) fL RDW Coeff of Courtney 16.3 H (11.5-14.5) % Plt Count 327 (130-400) K/uL MPV 9.9 (9.4-12.3) fL Immature Gran % (Auto) 0.9 % Neut % (Auto) 82.0 % Lymph % (Auto) 7.9 % [place] % (Auto) 8.6 % Eos % (Auto) 0.3 % Baso % (Auto) 0.3 % Neut # (Auto) 9.47 H (1.4-6.5) K/uL Lymph # (Auto) 0.91 L (1.2-3.4) K/uL [place] # (Auto) 0.99 H (0.24-0.82) K/uL Eos # (Auto) 0.04 (0-0.50) K/uL Baso # (Auto) 0.03 (0-0.2) K/uL Immature Gran # (Auto) 0.10 H (0.00-0.02) K/uL PT Cancelled INR Cancelled Sodium 129 L (136-145) mmol/L Potassium 2.2 L* (3.5-5.1) mmol/L Chloride 87 L (98-107) mmol/L Carbon Dioxide 31 (21-32) mmol/L Anion Gap 11 (3-11) BUN 16 (6-23) mg/dl Creatinine 1.42 H (0.6-1.2) mg/dl Est Cr Clr Drug Dosing Not Reportable Est GFR ( Amer) 43.9 ml/min Est GFR (Non-Af Amer) 37.9 ml/min BUN/Creatinine Ratio 11.3 (10-20) Glucose 116 H (70-99(Fasting)) mg/dl Calcium 10.4 H (8.5-10.1) mg/dl Magnesium 2.1 (1.7-2.4) mg/dl Total Bilirubin 1.1 H (0.2-1.0) mg/dl AST 97 H (13-39) U/L ALT 56 H (7-52) U/L Alkaline Phosphatase 188 H (34-104) U/L Troponin I High Sens 16.1 H (0-14) pg/ml Total Protein 8.4 H (6.0-8.3) gm/dl Albumin 3.7 (3.4-5.0) gm/dl Globulin 4.7 H (2.5-4.0) gm/dl Albumin/Globulin Ratio 0.8 L (0.9-2) Procalcitonin (0-0.5) ng/ml TSH (0.300-4.500) uIu/ml Free T4 (0.61-1.60) ng/dl SARS-CoV-2 (PCR) (Negative) Influenza Type A (PCR) (Neg) Influenza Type B (PCR) (Neg) Urine Legionella Ag RSV (RT-PCR) (Neg) 02/18/22 02/18/22 02/18/22 Range/Units 18:00 18:00 18:05 WBC (4.8-10.8) K/ul RBC (3.93-5.22) M/uL Hgb (12.0-16.0) g/dl Hct (34.1-44.9) % MCV (80.0-100.0) fL MCH (25.0-34.0) pg MCHC (32.0-36.0) g/dL RDW Std Deviation (36.4-46.3) fL RDW Coeff of Courtney (11.5-14.5) % Plt Count (130-400) K/uL MPV (9.4-12.3) fL Immature Gran % (Auto) % Neut % (Auto) % Lymph % (Auto) % [place] % (Auto) % Eos % (Auto) % Baso % (Auto) % Neut # (Auto) (1.4-6.5) K/uL Lymph # (Auto) (1.2-3.4) K/uL [place] # (Auto) (0.24-0.82) K/uL Eos # (Auto) (0-0.50) K/uL Baso # (Auto) (0-0.2) K/uL Immature Gran # (Auto) (0.00-0.02) K/uL PT INR Sodium (136-145) mmol/L Potassium (3.5-5.1) mmol/L Chloride (98-107) mmol/L Carbon Dioxide (21-32) mmol/L Anion Gap (3-11) BUN (6-23) mg/dl Creatinine (0.6-1.2) mg/dl Est Cr Clr Drug Dosing Est GFR ( Amer) ml/min Est GFR (Non-Af Amer) ml/min BUN/Creatinine Ratio (10-20) Glucose (70-99(Fasting)) mg/dl Calcium (8.5-10.1) mg/dl Magnesium (1.7-2.4) mg/dl Total Bilirubin (0.2-1.0) mg/dl AST (13-39) U/L ALT (7-52) U/L Alkaline Phosphatase (34-104) U/L Troponin I High Sens (0-14) pg/ml Total Protein (6.0-8.3) gm/dl Albumin (3.4-5.0) gm/dl Globulin (2.5-4.0) gm/dl Albumin/Globulin Ratio (0.9-2) Procalcitonin 3.67 H (0-0.5) ng/ml TSH 9.363 H (0.300-4.500) uIu/ml Free T4 1.17 (0.61-1.60) ng/dl SARS-CoV-2 (PCR) NEGATIVE (Negative) Influenza Type A (PCR) Negative (Neg) Influenza Type B (PCR) Negative (Neg) Urine Legionella Ag RSV (RT-PCR) Negative (Neg) 02/18/22 02/18/22 Range/Units 19:00 19:13 WBC (4.8-10.8) K/ul RBC (3.93-5.22) M/uL Hgb (12.0-16.0) g/dl Hct (34.1-44.9) % MCV (80.0-100.0) fL MCH (25.0-34.0) pg MCHC (32.0-36.0) g/dL RDW Std Deviation (36.4-46.3) fL RDW Coeff of Courtney (11.5-14.5) % Plt Count (130-400) K/uL MPV (9.4-12.3) fL Immature Gran % (Auto) % Neut % (Auto) % Lymph % (Auto) % [place] % (Auto) % Eos % (Auto) % Baso % (Auto) % Neut # (Auto) (1.4-6.5) K/uL Lymph # (Auto) (1.2-3.4) K/uL [place] # (Auto) (0.24-0.82) K/uL Eos # (Auto) (0-0.50) K/uL Baso # (Auto) (0-0.2) K/uL Immature Gran # (Auto) (0.00-0.02) K/uL PT > 90.0 H INR > 9.6 H* Sodium (136-145) mmol/L Potassium (3.5-5.1) mmol/L Chloride (98-107) mmol/L Carbon Dioxide (21-32) mmol/L Anion Gap (3-11) BUN (6-23) mg/dl Creatinine (0.6-1.2) mg/dl Est Cr Clr Drug Dosing Est GFR ( Amer) ml/min Est GFR (Non-Af Amer) ml/min BUN/Creatinine Ratio (10-20) Glucose (70-99(Fasting)) mg/dl Calcium (8.5-10.1) mg/dl Magnesium (1.7-2.4) mg/dl Total Bilirubin (0.2-1.0) mg/dl AST (13-39) U/L ALT (7-52) U/L Alkaline Phosphatase (34-104) U/L Troponin I High Sens (0-14) pg/ml Total Protein (6.0-8.3) gm/dl Albumin (3.4-5.0) gm/dl Globulin (2.5-4.0) gm/dl Albumin/Globulin Ratio (0.9-2) Procalcitonin (0-0.5) ng/ml TSH (0.300-4.500) uIu/ml Free T4 (0.61-1.60) ng/dl SARS-CoV-2 (PCR) (Negative) Influenza Type A (PCR) (Neg) Influenza Type B (PCR) (Neg) Urine Legionella Ag SEE NOTE RSV (RT-PCR) (Neg) Administered Medications Discontinued Medications Acetaminophen (Acetaminophen 325 Mg Tab) 650 mg PO Q4H PRN PRN Reason: Pain or Fever Stop: 03/20/22 20:08 Last Admin: 02/19/22 11:35 Dose: 650 mg Documented By: SKS Albuterol (Albut/Ipratrop 3mg/0.5mg Neb 3 Ml Vial) 3 ml NEB NOW STA; Protocol Stop: 02/18/22 17:49 Last Admin: 02/18/22 18:06 Dose: 3 ml Documented By: SUE Albuterol (Ipratropium [place]/Albuterol Respimat Inh) 1 puffs INH Q4H PRISCILA Stop: 03/20/22 23:06 Last Admin: 02/19/22 00:48 Dose: Not Given Documented By: AL Albuterol (Albuterol Hfa 8 Gm Inhaler) 2 puffs INH Q4H PRN PRN Reason: cough,sob,wheeze Stop: 03/20/22 23:06 Last Admin: 02/20/22 05:02 Dose: 2 puffs Documented By: FRIEDA Albuterol (Albuterol Hfa 8 Gm Inhaler (Combivent Respimat P&T Subs)) 1 puffs INH Q4R PRISCILA; Protocol Stop: 03/21/22 02:59 Last Admin: 02/18/22 23:34 Dose: 1 puffs Documented By: FRIEDA Albuterol (Albut/Ipratrop 3mg/0.5mg Neb 3 Ml Vial) 3 ml NEB Q4R PRISCILA; Protocol Stop: 03/21/22 02:59 Last Admin: 02/21/22 04:53 Dose: 3 ml Documented By: Admin: 02/21/22 02:39 Dose: 3 ml Documented By: Admin: 02/20/22 22:07 Dose: 3 ml Documented By: Admin: 02/20/22 18:13 Dose: 3 ml Documented By: Admin: 02/20/22 14:35 Dose: 3 ml Documented By: Admin: 02/20/22 10:00 Dose: 3 ml Documented By: Admin: 02/20/22 06:53 Dose: 3 ml Documented By: Admin: 02/20/22 03:45 Dose: 3 ml Documented By: Admin: 02/19/22 22:27 Dose: 3 ml Documented By: Admin: 02/19/22 18:58 Dose: 3 ml Documented By: Admin: 02/19/22 15:17 Dose: 3 ml Documented By: JUAN DAVID Admin: 02/19/22 10:47 Dose: 3 ml Documented By: JUAN DAVID Admin: 02/19/22 07:02 Dose: 3 ml Documented By: JUAN DAVID Admin: 02/19/22 03:19 Dose: 3 ml Documented By: FRIEDA Albuterol (Albut/Ipratrop 3mg/0.5mg Neb 3 Ml Vial) 3 ml NEB Q4R PRN; Protocol PRN Reason: Shortness Of Breath Or Wheezin Stop: 03/21/22 02:59 Last Admin: 02/21/22 13:45 Dose: 3 ml Documented By: MUSA Azelastine HCl (Azelastine Hcl 0.1% Nasal 200 Sprays/27,400 Mcg Btl) 2 sprays NA AMHS PRISCILA Stop: 03/20/22 23:06 Last Admin: 02/23/22 09:29 Dose: 2 sprays Documented By: Admin: 02/22/22 20:22 Dose: 2 sprays Documented By: Admin: 02/22/22 09:30 Dose: 2 sprays Documented By: Admin: 02/21/22 21:08 Dose: 2 sprays Documented By: Admin: 02/21/22 08:27 Dose: 2 sprays Documented By: Admin: 02/20/22 20:54 Dose: 2 sprays Documented By: Admin: 02/20/22 08:23 Dose: 2 sprays Documented By: Admin: 02/19/22 20:54 Dose: 2 sprays Documented By: Admin: 02/19/22 10:42 Dose: 2 sprays Documented By: Admin: 02/19/22 00:18 Dose: 2 sprays Documented By: AL Benzonatate (Benzonatate 100 Mg Capsule) 100 mg PO NOW ONE Stop: 02/18/22 17:49 Last Admin: 02/18/22 18:06 Dose: 100 mg Documented By: SUE Benzonatate (Benzonatate 100 Mg Capsule) 100 mg PO Q8H PRN PRN Reason: Cough Stop: 03/23/22 12:59 Last Admin: 02/23/22 09:45 Dose: 100 mg Documented By: Admin: 02/21/22 21:08 Dose: 100 mg Documented By: Admin: 02/21/22 13:28 Dose: 100 mg Documented By: PAUL Citalopram Hydrobromide (Citalopram 20 Mg Tab) 10 mg PO DAILY PRISCILA Stop: 03/21/22 08:59 Last Admin: 02/23/22 09:29 Dose: 10 mg Documented By: Admin: 02/22/22 09:30 Dose: 10 mg Documented By: Admin: 02/21/22 08:27 Dose: 10 mg Documented By: Admin: 02/20/22 08:24 Dose: 10 mg Documented By: Admin: 02/19/22 09:06 Dose: 10 mg Documented By: SUE Folic Acid (Folic Acid 1 Mg Tab) 1 mg PO QAM [facility] Stop: 03/21/22 08:59 Last Admin: 02/23/22 09:30 Dose: 1 mg Documented By: Admin: 02/22/22 09:30 Dose: 1 mg Documented By: Admin: 02/21/22 08:28 Dose: 1 mg Documented By: Admin: 02/20/22 08:24 Dose: 1 mg Documented By: Admin: 02/19/22 09:07 Dose: 1 mg Documented By: SUE Furosemide (Furosemide 40 Mg/4 Ml Vial) 40 mg IV ONE ONE Stop: 02/18/22 19:34 Last Admin: 02/18/22 19:57 Dose: 40 mg Documented By: QGV Furosemide (Furosemide 80 Mg Tab) 80 mg PO SuTuThSa@0900 [facility] Stop: 03/22/22 08:59 Last Admin: 02/22/22 09:30 Dose: 80 mg Documented By: Admin: 02/20/22 08:25 Dose: 80 mg Documented By: STEFANIA Furosemide (Furosemide 40 Mg Tab) 40 mg PO MoWeFr@0900 [facility] Stop: 03/21/22 08:59 Last Admin: 02/23/22 09:30 Dose: 40 mg Documented By: Admin: 02/21/22 08:28 Dose: 40 mg Documented By: Admin: 02/19/22 09:07 Dose: 40 mg Documented By: SUE Heparin Sodium/Dextrose (Heparin Iv Adult Wt-Based Standard *No* Bolus Protocol) 1 each IV Q30M ONE; Protocol Stop: 02/19/22 15:47 Last Admin: 02/19/22 16:36 Dose: Not Given Documented By: SKS Piperacillin Sod/Tazobactam Sod (Zosyn) 4.5 gm in 120 mls @ 240 mls/hr IV NOW ONE Stop: 02/18/22 19:42 Last Infusion: 02/18/22 20:59 Dose: 0 mls/hr Documented By: Admin: 02/18/22 20:23 Dose: 240 mls/hr Documented By: QGV Acetaminophen (Ofirmev) 1,000 mg in 100 mls @ 400 mls/hr IV NOW STA Stop: 02/18/22 19:29 Last Infusion: 02/18/22 20:59 Dose: 0 mls/hr Documented By: Admin: 02/18/22 19:57 Dose: 400 mls/hr Documented By: QGV Potassium Chloride (K Sachin / Wtr) 10 meq in 100 mls @ 100 mls/hr IV Q1H PRISCILA; Protocol Stop: 02/18/22 21:29 Last Admin: 02/18/22 23:22 Dose: Not Given Documented By: Admin: 02/18/22 23:14 Dose: Not Given Documented By: QGV Phytonadione 5 mg/ Dextrose 50.5 mls @ 101 mls/hr IV ONE ONE Stop: 02/18/22 20:09 Last Admin: 02/18/22 21:15 Dose: Not Given Documented By: QGV Piperacillin Sod/Tazobactam (Sod 3.375 gm/ Dextrose) 115 mls @ 28.75 mls/hr IV Q8H PRISCILA; Protocol Stop: 02/26/22 01:59 Last Infusion: 02/21/22 14:16 Dose: 0 mls/hr Documented By: Admin: 02/21/22 10:08 Dose: 28.8 mls/hr Documented By: Infusion: 02/21/22 06:25 Dose: 0 mls/hr Documented By: Admin: 02/21/22 02:25 Dose: 28.8 mls/hr Documented By: Infusion: 02/20/22 21:33 Dose: 0 mls/hr Documented By: Admin: 02/20/22 17:33 Dose: 28.8 mls/hr Documented By: Infusion: 02/20/22 13:05 Dose: 0 mls/hr Documented By: Admin: 02/20/22 09:01 Dose: 28.8 mls/hr Documented By: Infusion: 02/20/22 05:31 Dose: 0 mls/hr Documented By: Admin: 02/20/22 01:31 Dose: 28.8 mls/hr Documented By: Infusion: 02/19/22 22:20 Dose: 0 mls/hr Documented By: Admin: 02/19/22 18:12 Dose: 28.8 mls/hr Documented By: Infusion: 02/19/22 14:23 Dose: 0 mls/hr Documented By: SKLeanna Admin: 02/19/22 10:42 Dose: 28.8 mls/hr Documented By: SKLeanna Infusion: 02/19/22 06:01 Dose: 0 mls/hr Documented By: Admin: 02/19/22 02:31 Dose: 28.8 mls/hr Documented By: AL Phytonadione 3 mg/ Dextrose 50.3 mls @ 100.5 mls/hr IV ONE ONE Stop: 02/18/22 20:39 Last Infusion: 02/18/22 23:22 Dose: 0 mls/hr Documented By: Admin: 02/18/22 20:58 Dose: 100.5 mls/hr Documented By: QGV Pantoprazole Sodium 40 mg/ (Syringe) 10 mls @ 5 mls/min IV BID PRISCILA Stop: 03/20/22 20:59 Last Admin: 02/21/22 08:29 Dose: 5 mls/min Documented By: Admin: 02/20/22 20:54 Dose: 5 mls/min Documented By: Admin: 02/20/22 08:26 Dose: 5 mls/min Documented By: Admin: 02/19/22 20:50 Dose: 5 mls/min Documented By: Admin: 02/19/22 09:06 Dose: 5 mls/min Documented By: Admin: 02/18/22 22:10 Dose: 5 mls/min Documented By: QGV Doxycycline Hyclate 100 mg/ (Dextrose) 110 mls @ 50 mls/hr IV Q12H PRISCILA Stop: 02/25/22 21:59 Last Infusion: 02/23/22 13:12 Dose: 0 mls/hr Documented By: Admin: 02/23/22 11:00 Dose: 50 mls/hr Documented By: Infusion: 02/23/22 00:55 Dose: 0 mls/hr Documented By: Admin: 02/22/22 22:37 Dose: 50 mls/hr Documented By: Infusion: 02/22/22 11:58 Dose: 0 mls/hr Documented By: Admin: 02/22/22 09:41 Dose: 50 mls/hr Documented By: Infusion: 02/21/22 23:35 Dose: 0 mls/hr Documented By: Admin: 02/21/22 21:16 Dose: 50 mls/hr Documented By: Infusion: 02/21/22 13:19 Dose: 0 mls/hr Documented By: Admin: 02/21/22 10:58 Dose: 50 mls/hr Documented By: Infusion: 02/21/22 01:08 Dose: 0 mls/hr Documented By: Admin: 02/20/22 22:56 Dose: 50 mls/hr Documented By: Infusion: 02/20/22 11:03 Dose: 0 mls/hr Documented By: Admin: 02/20/22 09:01 Dose: 50 mls/hr Documented By: Infusion: 02/19/22 23:05 Dose: 0 mls/hr Documented By: Admin: 02/19/22 20:53 Dose: 50 mls/hr Documented By: Infusion: 02/19/22 12:39 Dose: 0 mls/hr Documented By: Admin: 02/19/22 10:41 Dose: 50 mls/hr Documented By: Infusion: 02/19/22 00:40 Dose: 0 mls/hr Documented By: Admin: 02/18/22 22:09 Dose: 50 mls/hr Documented By: QGV Potassium Chloride (K Sachin / Wtr) 10 meq in 100 mls @ 100 mls/hr IV Q1H PRISCILA Stop: 02/19/22 00:44 Last Infusion: 02/19/22 07:15 Dose: 0 mls/hr Documented By: Admin: 02/19/22 04:54 Dose: 100 mls/hr Documented By: Infusion: 02/19/22 03:31 Dose: 100 mls/hr Documented By: Admin: 02/19/22 02:31 Dose: 100 mls/hr Documented By: Infusion: 02/19/22 01:25 Dose: 100 mls/hr Documented By: Admin: 02/19/22 00:25 Dose: 100 mls/hr Documented By: Infusion: 02/18/22 23:09 Dose: 100 mls/hr Documented By: Admin: 02/18/22 22:09 Dose: 100 mls/hr Documented By: QGV Methylprednisolone 40 mg/ (Syringe) 0.64 mls @ 1.5 mls/min IV BID PRISCILA Stop: 03/21/22 08:59 Last Admin: 02/20/22 20:54 Dose: 1.5 mls/min Documented By: Admin: 02/20/22 08:26 Dose: 1.5 mls/min Documented By: Admin: 02/19/22 20:50 Dose: 1.5 mls/min Documented By: Admin: 02/19/22 09:06 Dose: 1.5 mls/min Documented By: SUE Heparin Sodium/Dextrose (Heparin Sodium/Dextrose) 25,000 units in 500 mls @ 11 mls/hr IV .Q24H PRISCILA; Protocol Stop: 03/21/22 16:14 Last Admin: 02/21/22 16:56 Dose: Not Given Documented By: Titration: 02/21/22 16:45 Dose: 0 units/hr, 0 mls/hr Documented By: CLC Co-signed By: MP Titration: 02/21/22 15:37 Dose: 550 units/hr, 11 mls/hr Documented By: CLC Co-signed By: CMP Titration: 02/21/22 08:38 Dose: 600 units/hr, 12 mls/hr Documented By: CLC Co-signed By: CG Titration: 02/21/22 07:58 Dose: 0 units/hr, 0 mls/hr Documented By: CLC Co-signed By: MS Titration: 02/21/22 06:56 Dose: 700 units/hr, 14 mls/hr Documented By: CLC Co-signed By: BCM Titration: 02/20/22 18:59 Dose: 700 units/hr, 14 mls/hr Documented By: ELS Co-signed By: STEFANIA Admin: 02/20/22 16:22 Dose: 700 units/hr, 14 mls/hr Documented By: JLDinesh Co-signed By: HOLLIS Titration: 02/20/22 16:22 Dose: 700 units/hr, 14 mls/hr Documented By: STEFANIA Co-signed By: HOLLIS Titration: 02/20/22 15:55 Dose: 700 units/hr, 14 mls/hr Documented By: STEFANIA Co-signed By: HOLLIS Titration: 02/20/22 09:18 Dose: 700 units/hr, 14 mls/hr Documented By: STEFANIA Co-signed By: HOLLIS Titration: 02/20/22 08:18 Dose: 0 units/hr, 0 mls/hr Documented By: STEFANIA Co-signed By: HOLLIS Titration: 02/20/22 07:14 Dose: 800 units/hr, 16 mls/hr Documented By: JAN Co-signed By: STEFANIA Titration: 02/20/22 01:03 Dose: 800 units/hr, 16 mls/hr Documented By: JAN Co-signed By: BPY Titration: 02/20/22 00:02 Dose: 0 units/hr, 0 mls/hr Documented By: JAN Co-signed By: BPRoshan Titration: 02/19/22 19:04 Dose: 900 units/hr, 18 mls/hr Documented By: JAN Co-signed By: AYAZ Admin: 02/19/22 16:34 Dose: 900 units/hr, 18 mls/hr Documented By: AYAZ Co-signed By: HOLLIS Potassium Chloride/Sodium Chloride (Normal Saline W/20 Meq Kcl) 20 meq in 1,000 mls @ 50 mls/hr IV .Q20H PRISCILA; Protocol Stop: 02/20/22 23:29 Last Infusion: 02/20/22 23:53 Dose: 0 mls/hr Documented By: Admin: 02/20/22 14:21 Dose: 50 mls/hr Documented By: STEFANIA Insulin Human Regular 5 units/ (Syringe) 5 mls @ 15 mls/min IV 0045 ONE Stop: 02/21/22 00:46 Last Admin: 02/21/22 00:43 Dose: 15 mls/min Documented By: JAN Co-signed By: BPY Potassium Phosphate 21 mmol/ (Sodium Chloride) 507 mls @ 88 mls/hr IV ONE ONE Stop: 02/22/22 15:30 Last Infusion: 02/22/22 16:15 Dose: 0 mls/hr Documented By: Admin: 02/22/22 09:33 Dose: 88 mls/hr Documented By: NIR Insulin Aspart (Insulin Aspart Per Unit) 0 units SC ACHS [facility] Stop: 03/23/22 07:29 Last Admin: 02/23/22 12:44 Dose: 4 units Documented By: AK Co-signed By: [id number] Admin: 02/23/22 09:44 Dose: 7 units Documented By: AK Co-signed By: [id number] Admin: 02/22/22 20:20 Dose: 3 units Documented By: EMILY Co-signed By: SADIE(2) Admin: 02/22/22 17:06 Dose: 4 units Documented By: NIR Co-signed By: JULISSA Admin: 02/22/22 11:54 Dose: Not Given Documented By: Admin: 02/22/22 08:41 Dose: 4 units Documented By: NIR Co-signed By: JULISSA Admin: 02/21/22 21:09 Dose: 3 units Documented By: DIVINA Co-signed By: SAVI Admin: 02/21/22 17:59 Dose: 4 units Documented By: PAUL Co-signed By: Admin: 02/21/22 11:58 Dose: 7 units Documented By: PUAL Co-signed By: JULISSA Admin: 02/21/22 03:42 Dose: 1 units Documented By: PATTI Co-signed By: SAVI Insulin Aspart (Insulin Aspart Per Unit) 0 units SC 0400,2300 PRISCILA Stop: 02/21/22 04:01 Last Admin: 02/21/22 03:50 Dose: 1 units Documented By: PATTI Co-signed By: SAVI Admin: 02/20/22 23:06 Dose: 4 units Documented By: JAN Co-signed By: WARREN Insulin Glargine (Lantus Per Unit Charge) 8 units SQ 0045 ONE Stop: 02/21/22 00:46 Last Admin: 02/21/22 00:43 Dose: 8 units Documented By: JAN Co-signed By: WARREN Insulin Glargine (Lantus Per Unit Charge) 0 units SQ HS [facility]; Protocol Stop: 03/23/22 20:59 Last Admin: 02/21/22 21:09 Dose: 5 units Documented By: DIVINA Co-signed By: SAVI Insulin Glargine (Lantus Per Unit Charge) 5 units SQ ONE ONE Stop: 02/22/22 08:01 Last Admin: 02/22/22 08:46 Dose: 5 units Documented By: NIR Co-signed By: DOYLE Insulin Glargine (Lantus Per Unit Charge) 5 units SQ QAM [facility] Stop: 03/25/22 08:59 Last Admin: 02/23/22 09:44 Dose: 5 units Documented By: BOZENA Co-signed By: [id number] Ipratropium [place] (Ipratropium Hfa Inhaler (Combivent Respimat P&T Subs)) 1 puffs INH Q4R PRISCILA; Protocol Stop: 03/21/22 02:59 Last Admin: 02/18/22 23:33 Dose: 1 puffs Documented By: FRIEDA Levothyroxine Sodium (Levothyroxine Sodium 100 Mcg Tablet) 100 mcg PO DAILYBB [facility] Stop: 03/21/22 06:29 Last Admin: 02/23/22 06:01 Dose: 100 mcg Documented By: Admin: 02/22/22 05:57 Dose: 100 mcg Documented By: Admin: 02/21/22 06:33 Dose: 100 mcg Documented By: Admin: 02/20/22 05:35 Dose: 100 mcg Documented By: Admin: 02/19/22 07:27 Dose: 100 mcg Documented By: SUE Menthol (Cough Drop (Sugar Free) Eliana 24 Eliana/1 Box) Confirm Administered Dose 24 eliana BUCCAL .STK-MED ONE Stop: 02/19/22 15:39 Last Admin: 02/19/22 15:39 Dose: 24 eliana Documented By: AYAZ Methylprednisolone (Methylprednisolone 40 Mg/Ml Vial) 40 mg IV NOW STA Stop: 02/18/22 21:39 Last Admin: 02/18/22 22:10 Dose: 40 mg Documented By: QGV Metoprolol Tartrate (Metoprolol Tartrate 25 Mg Tab) 25 mg PO BID [facility] Stop: 03/20/22 23:06 Last Admin: 02/23/22 09:30 Dose: 25 mg Documented By: Admin: 02/22/22 20:21 Dose: 25 mg Documented By: Admin: 02/22/22 09:31 Dose: 25 mg Documented By: Admin: 02/21/22 21:10 Dose: 25 mg Documented By: Admin: 02/21/22 08:29 Dose: 25 mg Documented By: Admin: 02/20/22 20:54 Dose: 25 mg Documented By: Admin: 02/20/22 08:25 Dose: 25 mg Documented By: Admin: 02/19/22 20:50 Dose: 25 mg Documented By: Admin: 02/19/22 09:06 Dose: 25 mg Documented By: Admin: 02/18/22 23:50 Dose: 25 mg Documented By: AL Nystatin (Nystatin Susp 500,000 U/5 Ml Udc) 5 ml PO QID PR[facility] Stop: 03/22/22 16:59 Last Admin: 02/23/22 12:44 Dose: 5 ml Documented By: Admin: 02/23/22 09:30 Dose: 5 ml Documented By: Admin: 02/22/22 20:20 Dose: 5 ml Documented By: Admin: 02/22/22 17:47 Dose: 5 ml Documented By: Admin: 02/22/22 13:17 Dose: 5 ml Documented By: Admin: 02/22/22 09:32 Dose: 5 ml Documented By: Admin: 02/21/22 21:10 Dose: 5 ml Documented By: Admin: 02/21/22 18:03 Dose: 5 ml Documented By: Admin: 02/21/22 13:28 Dose: 5 ml Documented By: Admin: 02/21/22 08:29 Dose: 5 ml Documented By: Admin: 02/20/22 20:54 Dose: 5 ml Documented By: Admin: 02/20/22 17:33 Dose: 5 ml Documented By: STEFANIA Pantoprazole Sodium (Pantoprazole 40 Mg Tab) 40 mg PO BID [facility]; Protocol Stop: 03/20/22 20:59 Last Admin: 02/23/22 09:30 Dose: 40 mg Documented By: Admin: 02/22/22 20:21 Dose: 40 mg Documented By: Admin: 02/22/22 09:31 Dose: 40 mg Documented By: Admin: 02/21/22 21:10 Dose: 40 mg Documented By: DIVINA Potassium Chloride (Potassium Chloride Crtab 20 Meq Tabcr) 40 meq PO NOW STA Stop: 02/18/22 20:41 Last Admin: 02/18/22 22:10 Dose: 40 meq Documented By: QGV Potassium Chloride (Potassium Chloride 10 Meq / 100ml Wtr) Confirm Administered Dose 10 meq IV .STK-MED ONE Stop: 02/19/22 04:53 Last Admin: 02/19/22 04:55 Dose: Not Given Documented By: AL Potassium Chloride (Potassium Chloride Crtab 20 Meq Tabcr) 60 meq PO NOW STA Stop: 02/20/22 07:48 Last Admin: 02/20/22 08:21 Dose: 60 meq Documented By: STEFANIA Potassium Chloride (Potassium Chloride Crtab 20 Meq Tabcr) 20 meq PO NOW STA Stop: 02/22/22 09:07 Last Admin: 02/22/22 09:41 Dose: 20 meq Documented By: NIR Potassium Chloride (Potassium Chloride Crtab 20 Meq Tabcr) 40 meq PO NOW STA Stop: 02/23/22 09:38 Last Admin: 02/23/22 09:56 Dose: 40 meq Documented By: BOZENA Prednisone (Prednisone 20 Mg Tab) 40 mg PO DAILY [facility] Stop: 03/23/22 08:59 Last Admin: 02/23/22 09:30 Dose: 40 mg Documented By: Admin: 02/22/22 09:31 Dose: 40 mg Documented By: Admin: 02/21/22 08:29 Dose: 40 mg Documented By: PAUL Ropinirole HCl (Ropinirole Hcl 2 Mg Tablet) 2 mg PO PRISCILA Stop: 03/21/22 20:59 Last Admin: 02/22/22 20:21 Dose: 2 mg Documented By: Admin: 02/21/22 21:10 Dose: 2 mg Documented By: Admin: 02/20/22 20:54 Dose: 2 mg Documented By: Admin: 02/19/22 20:50 Dose: 2 mg Documented By: JAN Rosuvastatin Calcium (Rosuvastatin Calcium 20 Mg Tab) 20 mg PO [facility] Stop: 03/20/22 23:06 Last Admin: 02/22/22 20:21 Dose: 20 mg Documented By: Admin: 02/21/22 21:11 Dose: 20 mg Documented By: Admin: 02/20/22 20:54 Dose: 20 mg Documented By: Admin: 02/19/22 20:50 Dose: 20 mg Documented By: Admin: 02/19/22 00:17 Dose: 20 mg Documented By: AL Spironolactone (Spironolactone 12.5 Mg Tab) 12.5 mg PO [facility] Stop: 03/21/22 08:59 Last Admin: 02/20/22 08:25 Dose: 12.5 mg Documented By: Admin: 02/19/22 09:07 Dose: 12.5 mg Documented By: SUE Spironolactone (Spironolactone 12.5 Mg Tab) 12.5 mg PO NOW ONE Stop: 02/22/22 09:31 Last Admin: 02/22/22 09:32 Dose: 12.5 mg Documented By: NIR Spironolactone (Spironolactone 12.5 Mg Tab) 12.5 mg PO [facility] Stop: 03/25/22 08:59 Last Admin: 02/23/22 09:31 Dose: 12.5 mg Documented By: BOZENA Tramadol HCl (Tramadol Hcl 50 Mg Tablet) 50 mg PO TID PRN PRN Reason: Pain Stop: 03/20/22 23:06 Last Admin: 02/22/22 22:29 Dose: 50 mg Documented By: Admin: 02/22/22 15:10 Dose: 50 mg Documented By: Admin: 02/21/22 21:16 Dose: 50 mg Documented By: Admin: 02/21/22 10:00 Dose: 50 mg Documented By: Admin: 02/20/22 17:38 Dose: 50 mg Documented By: Admin: 02/20/22 05:34 Dose: 50 mg Documented By: Admin: 02/19/22 21:11 Dose: 50 mg Documented By: Admin: 02/18/22 23:50 Dose: 50 mg Documented By: AL Vitamin D (Cholecalciferol 1,000 Units 25 Mcg Tab) 1,000 units PO [facility] Stop: 03/21/22 08:59 Last Admin: 02/23/22 09:29 Dose: 1,000 units Documented By: Admin: 02/22/22 09:30 Dose: 1,000 units Documented By: Admin: 02/21/22 08:27 Dose: 1,000 units Documented By: Admin: 02/20/22 08:24 Dose: 1,000 units Documented By: Admin: 02/19/22 09:06 Dose: 1,000 units Documented By: SUE Warfarin Sodium (Warfarin Sod 2.5 Mg Tab) 2.5 mg PO DAILY@1600 ONE Stop: 02/19/22 16:01 Last Admin: 02/19/22 15:41 Dose: 2.5 mg Documented By: AYAZ Warfarin Sodium (Warfarin Sod 5 Mg Tab) 5 mg PO [id number]@1600 PRISCILA Stop: 03/22/22 15:59 Last Admin: 02/21/22 16:48 Dose: 5 mg Documented By: Admin: 02/20/22 15:43 Dose: 5 mg Documented By: STEFANIA Imaging Data Radiologist's Impression: Venous Doppler Study 02/18/22 17:44 LEFT LOWER EXTREMITY VENOUS DOPPLER CLINICAL HISTORY: Left lower extremity pain and swelling. COMPARISON STUDY: Left lower extremity venous Doppler ultrasound November 25, 2021. TECHNIQUE: Sonography of the deep venous system of the left lower extremity was performed. Compression and augmentation were evaluated. FINDINGS: The left common femoral, superficial femoral and popliteal veins were compressible. Augmentation was normal. Flow was shown within the deep calf vessels. IMPRESSION: No evidence of deep venous thrombus within the left lower extremity. ACT 112: Negative or not required by law. Electronically signed by: Trey Fox M.D. 02/19/2022 8:13 AM Chest X-Ray 02/18/22 17:45 XR chest 1V portable HISTORY: weakness COMPARISON: Chest 08/05/2021. FINDINGS: The cardiac silhouette remains enlarged. There are poststernotomy changes. There is mild interstitial pulmonary edema and trace bilateral pleural effusions. A cardiac valve prosthesis is again noted. No pneumothorax. IMPRESSION: 1. Interval progression of the mild interstitial pulmonary edema and trace bilateral pleural effusions. 2. Stable cardiomegaly. ACT 112: Negative or not required by law. Electronically signed by: Darshan Mosquera M.D. 02/18/2022 6:43 PM Foot X-Ray 02/18/22 19:13 XR foot LT 2V CLINICAL HISTORY: pain/redness to heel COMPARISON STUDY: None. FINDINGS: Small plantar heel spur is noted. No destructive changes to suggest an osteomyelitis. Mild thickening at the distal Achilles tendon. No fracture or dislocation within the left foot. The bones are osteopenic. The Lisfranc joint is intact. Wjcg-qb-kywsrvik degenerative changes seen throughout the left foot. IMPRESSION: 1. Mild thickening at the distal Achilles tendon. This likely represents a mild Achilles tendinosis. 2. No fracture or dislocation within the left foot. 3. Mild to moderate degenerative changes. ACT 112: Negative or not required by law. Electronically signed by: Darshan Mosquera M.D. 02/18/2022 7:48 PM Discharge Plan Visit Data Chief Complaint: Cough Stated Complaint: COUGH, BLEEDING FROM MOUTH/NOSE/EYES ED Provider: Vincenzo Haynes Discharge Problem: CHF (congestive heart failure), Cough, Acute dyspnea, Acute foot pain, Supratherapeutic INR Patient Disposition: Admitted As Inpatient Discharge Instructions Interventions: ED Discharge Assessment Last Done: 02/18/22 22:36
[2022-02-18] MEDS ORDERED: BENZONATATE 100 MG CAPSULE PO ONE (17:48)
[2022-02-18] MEDS ORDERED: ALBUT/IPRATROP 3MG/0.5MG NEB 3 ML VIAL NEB STA (17:48)
[2022-02-18 18:14] LABS: Basophils # (auto) 0.03 K/uL (0-0.2); Basophils % (auto) 0.3 %; Eosinophils # (auto) 0.04 K/uL (0-0.50); Eosinophils % (auto) 0.3 %; Hematocrit (blood only) 32.5 % (34.1-44.9); Immature Granulocytes % (auto) 0.9 %; Lymphocytes # (auto) 0.91 K/uL (1.2-3.4); Lymphocytes % (auto) 7.9 %; Mean Corpuscular Hemoglobin 25.9 pg (25.0-34.0); Mean Corpuscular Hgb Conc 33.8 g/dL (32.0-36.0); Mean Corpuscular Volume 76.5 fL (80.0-100.0); Mean Platelet Volume 9.9 fL (9.4-12.3); Monocytes # (auto) 0.99 K/uL (0.24-0.82); Monocytes % (auto) 8.6 %; Neutrophils # (auto) 9.47 K/uL (1.4-6.5); Platelet Count 327 K/uL (130-400); RDW Coefficient of Variation 16.3 % (11.5-14.5); RDW Standard Deviation 45.1 fL (36.4-46.3); Red Blood Count 4.25 M/uL (3.93-5.22); White Blood Count 11.54 K/ul (4.8-10.8)
--- NOTE | 2022-02-18 18:45 | XRay Report ---
XR chest 1V portable HISTORY: weakness COMPARISON: Chest 08/05/2021. FINDINGS: The cardiac silhouette remains enlarged. There are poststernotomy changes. There is mild in terstitial pulmonary edema and trace bilateral pleural effusions. A cardiac valve prosthesis is again noted. No pneumothorax. IMPRESSION: 1. Interval progression of the mild interstitial pulmonary edema and trace bilateral pleural effusion s. 2. Stable cardiomegaly. ACT 112: Negative or not required by law. Electronically signed by: Darshan Mosquera M.D. 02/18/2022 6:43 PM
[2022-02-18 18:51] LABS: Alanine Aminotransferase 56 U/L (7-52); Albumin Globulin Ratio 0.8 (0.9-2); Albumin Level 3.7 gm/dl (3.4-5.0); Alkaline Phosphatase 188 U/L (34-104); Anion Gap 11 (3-11); Aspartate Aminotransferase 97 U/L (13-39); BUN Creatinine Ratio 11.3 (10-20); Bilirubin,Total 1.1 mg/dl (0.2-1.0); Blood Urea Nitrogen 16 mg/dl (6-23); Calcium 10.4 mg/dl (8.5-10.1); Carbon Dioxide 31 mmol/L (21-32); Chloride 87 mmol/L (98-107); Est GFR (African American) 43.9 ml/min; Est GFR (Non-African American) 37.9 ml/min; Globulin 4.7 gm/dl (2.5-4.0); Glucose 116 mg/dl (70-99(Fasting)); Magnesium 2.1 mg/dl (1.7-2.4); Potassium 2.2 mmol/L (3.5-5.1); Sodium 129 mmol/L (136-145); Total Protein 8.4 gm/dl (6.0-8.3); Troponin I High Sensitivity 16.1 pg/ml (0-14)
[2022-02-18 19:01] LABS: Influenza A virus by PCR Negative (Neg); Influenza B virus by PCR Negative (Neg); RSV by PCR Negative (Neg); SARS CoV2 RNA(COVID-19) Ceph NEGATIVE (Negative)
[2022-02-18] MEDS ORDERED: PIPERACILLIN/TAZOBACTAM 4.5 GM/120 ML BAG IV ONE (19:13)
[2022-02-18] MEDS ORDERED: ACETAMINOPHEN 1,000 MG/100 ML VIAL IV STA (19:15)
[2022-02-18] MEDS ORDERED: FUROSEMIDE 40 MG/4 ML VIAL IV ONE (19:33)
--- NOTE | 2022-02-18 19:51 | XRay Report ---
XR foot LT 2V CLINICAL HISTORY: pain/redness to heel COMPARISON STUDY: None. FINDINGS: Small plantar heel spur is noted. No destructive changes to suggest an osteomyelitis. Mild thickening at the distal Achilles tendon. No fracture or dislocation within the left foot. The bones are osteopenic. The Lisfranc joint is intact. Boto-jw-rhkhitlh degenerative changes seen throughout t he left foot. IMPRESSION: 1. Mild thickening at the distal Achilles tendon. This likely represents a mild Achilles tendinosis. 2. No fracture or dislocation within the left foot. 3. Mild to moderate degenerative changes. ACT 112: Negative or not required by law. Electronically signed by: Darshan Mosquera M.D. 02/18/2022 7:48 PM
[2022-02-18 19:59] LABS: Prothrombin Time > 90.0 Seconds (9.0-12.0)
[2022-02-18 20:03] LABS: INR > 9.6 (0.9-1.1)
[2022-02-18] MEDS ORDERED: PHYTONADIONE 5 MG in DEXTROSE 5% 50 ML IV ONE (20:06)
[2022-02-18] MEDS ORDERED: ALUMINUM/MAGNESIUM SUSP 30 ML UDC PO PRN (20:09)
[2022-02-18] MEDS ORDERED: PHYTONADIONE IV ONE (20:09)
[2022-02-18] MEDS ORDERED: ACETAMINOPHEN 325 MG TAB PO PRN (20:09)
[2022-02-18] MEDS ORDERED: POLYETHYLENE (MIRALAX) 17 GM PACK PO PRN (20:09)
[2022-02-18] MEDS ORDERED: MAGNESIUM HYDROXIDE SUSP 30 ML UDC PO PRN (20:09)
[2022-02-18] MEDS ORDERED: DEXTROSE 5% IV ONE (20:09)
[2022-02-18] MEDS ORDERED: POTASSIUM CHLORIDE CRTAB 20 MEQ TABCR PO STA (20:40)
--- NOTE | 2022-02-18 20:44 | History & Physical Report ---
Date of Service February 18, 2022 Assessment & Plan (1) Pneumonia: Plan Pneumonia Patient presents with negative. Productive cough associated with fever 3 to 4 days, viral panel at admission. Patient coming from [place]. Not overtly septic at presentation, WBC and Pro-Christian elevated at admission. Checks x-ray reviewed. Patient started on Zosyn in the ED, will continue with same. add doxy. Follow blood culture. Sputum culture. Will order Legionella test History of asthma: Patient with decreased breath sound bilaterally, likely mild asthma exacerbation, patient reported to use Combivent very frequently "up to 40 times " a day while on a cruise per patient's caregiver Moris at bedside. Will use Solu-Medrol 2 times daily with pantoprazole 40 Mg IV twice daily for the duration of Solu-Medrol as patient also has concerns of Coumadin coagulopathy at presentation. Continue to monitor. Bleeding secondary to Coumadin coagulopathy: Patient complained of blood in her sputum/via nose/in her tears yesterday, none today per patient and her caregiver at bedside. Admitting INR of greater than 9.6, ER doctor discussed with Dr. Dennison, 3 mg IV vitamin K recommended with repeat PT/INR in 4 to 6 hours; which will be carried out. We will hold Coumadin. PT/INR daily. Left heel pain: Minimal warmth and tenderness with no erythema or open wound, distal neurovascular status appears normal, left foot x-ray with no fracture or dislocation but suggestive of mild Achilles tendinosis. Better support/padding at left heel. Pain management with local gel if needed. follow US venous doppl er LE. Likely acute on chronic heart failure with diastolic dysfunction: Patient missed dose of Lasix prior to arrival, admitting on cruise/possibility of dietary indiscretion, missed rest of her cardiac medications for 2 days prior to arrival, admitting CXR with progression of interstitial pulmonary edema. Will give Lasix 40 Mg IV, consider cardiology consult if with no improvement, will resume home Lasix from tomorrow. Electrolyte abnormalities: Monitor and replete, repleting potassium. Mild hyponatremia, appears chronic, monitor. Other chronic medical conditions: Extensive as mentioned in HPI, resume home meds as able. Coumadin on hold, PT/INR daily. DVT prophylaxis: Patient supratherapeutic Full code [patient's boyfriend Rudy Marcus is medical POA per patient]. Text document was generated using voice recognition software. It may contain grammatical or spelling errors. Kindly contact undersigned for clarification of any documentation item in question. History of Present Illness Primary Care Provider: John Blanco MD 65 yr female with H/O DM II diet controlled, CKD III, hypothyroidism, hyperlipidemia, atrial fibrillation, tachybrady syndrome, chronic diastolic CHF, history of rheumatic heart disease, CAD, varicose veins of both legs, GERD, generalized osteoarthritis, restless legs syndrome, S/P mechanical mitral valve replacement, TIA, Recurrent falls, generalized anxiety disorderpresented to the ED 02/18 with complaint of not feeling well since last 3 to 4 days. Patient went on a cruise for 9 days, and she started having cough since last 3 to 4 days, productive of brownish sputum, had fevers, became weak, cough progressively worsened, ran out of medication 2 days prior to arrival due to delays from layovers/missing transits etc. Also see complained of bleeding through her nose/in tears and in the sputum yesterday which has stopped today. Pt directly coming from the cruise to the hospital. Patient also reports congested nose and congested chest/chest tightness, feeling very fatigued and weak, decreased appetite. Patient denies any diarrhea or any pain or burning with passing urine or chest pain or palpitation. Patient also complains of back of left ankle pain which was warm and tender on exam. Patient denies any smoking history or recreational drug use history, drinks 1 glass of wine 2-3 times a week. Mother has history of eczema and COVID, father has history of cancer, brother has history of allergies. Medications were reviewed with the patient. Patient takes Coumadin 2.5 mg on Saturday and 5 mg rest of the days. Patient did not take any of her medications since 2 days ago prior to arrival due to her meds running out while on cruise/transit. She did not take her Lasix for 1 day. Allergies Allergy/AdvReac Type Severity Reaction Status Date / Time hydroxyzine Allergy Severe DYSTONIA Verified 02/18/22 19:32 prochlorperazine Allergy Severe NUCHAL Verified 02/18/22 19:32 DYSTONIA promethazine Allergy Severe NUCHAL Verified 02/18/22 19:32 DYSTONIA oxycodone Allergy Intermediate Numbness Verified 02/18/22 19:32 PERRY Inhibitors AdvReac Intermediate COUGH Verified 02/18/22 19:32 gabapentin AdvReac Intermediate Drowsy Verified 02/18/22 19:32 lisinopril AdvReac Intermediate Cough Verified 02/18/22 19:32 metformin AdvReac Intermediate DIARRHEA Verified 02/18/22 19:32 parsley AdvReac Intermediate AGITATION Verified 02/18/22 19:32 tetracycline AdvReac Intermediate DYSPEPSIA Verified 02/18/22 19:32 NAUSEA MEDICINES Allergy Unknown SEE NOTE Uncoded 02/18/22 19:32 BELOW Home Medications Medication Instructions Recorded Confirmed Type cholecalciferol (vitamin D3) 25 1,000 unit PO QAM 12/05/17 02/18/22 History mcg (1,000 unit) capsule (Vitamin D3) nitroglycerin 0.4 mg sublingual 0.4 mg sublingual DIRECTED PRN 12/05/17 02/18/22 History tablet (Nitrostat) Chest Pain omeprazole 20 mg capsule,delayed 20 mg PO PM 12/05/17 02/18/22 History release levothyroxine 100 mcg tablet 100 mcg PO DAILYBB 05/18/18 02/18/22 History folic acid 1 mg tablet 1 mg PO QAM #30 tabs 05/21/18 02/18/22 Rx magnesium hydroxide 400 mg/5 mL 5 ml PO DAILY PRN Constipation 12/31/19 02/18/22 History oral suspension (Milk of Magnesia) spironolactone 25 mg tablet 12.5 mg PO QAM 12/31/19 02/18/22 History rosuvastatin 20 mg tablet 20 mg PO HS 10/15/20 02/18/22 History bisacodyl 10 mg rectal suppository 10 mg AK DAILY PRN as directed 07/18/21 02/18/22 History citalopram 10 mg tablet 10 mg PO DAILY 07/18/21 02/18/22 History sennosides 17.2 mg tablet 17.2 mg PO HS PRN Constipation 07/18/21 02/18/22 History tramadol 50 mg tablet 50 mg PO TID PRN Pain 07/18/21 02/18/22 History warfarin 5 mg tablet 5 mg PO DIRECTED 07/18/21 02/18/22 History albuterol sulfate 90 mcg/actuation 2 puff inhalation Q4 PRN 08/02/21 02/18/22 History aerosol inhaler cough,sob,wheeze azelastine 137 mcg (0.1 %) nasal 2 spray intranasal AMHS 08/02/21 02/18/22 History spray aerosol metoprolol tartrate 25 mg tablet 25 mg PO BID #30 tabs 08/18/21 02/18/22 Rx ropinirole 2 mg tablet 2 mg PO DAILY 09/01/21 02/18/22 History Incentive Spirometer #1 ea 09/05/21 11/30/21 Rx Magnesium Glycinate 665 665 mg PO DAILY 11/30/21 02/18/22 History furosemide 40 mg tablet 40 mg PO 3XWK 11/30/21 02/18/22 History furosemide 40 mg tablet 80 mg PO 4XWK 11/30/21 02/18/22 History valacyclovir 1 gram tablet 2 mg PO AMPM PRN Cold Sores 11/30/21 02/18/22 History ipratropium 0.5 mg-albuterol 3 mg 3 ml inhalation QID PRN shortness 01/29/22 02/18/22 Rx (2.5 mg base)/3 mL nebulization of breath or wheezing #1,080 mL soln ipratropium 20 mcg-albuterol 100 1 puff inhalation QID PRN 02/18/22 02/18/22 History mcg/actuation mist for inhalation Shortness Of Breath (Combivent Respimat) Past Med/Surg History Medical History A-fib Anemia chronic; baseline hgb 9-10 range per chart review Anxiety CKD (chronic kidney disease), stage III Diabetes diet controlled Encounter for pre-operative examination GERD (gastroesophageal reflux disease) controlled History of blood transfusion autologous s/p MVR (1993), 09/2018 (post-op) HTN (hypertension) Hx of myocardial infarction 2000, medical management Hyperlipidemia Hypothyroidism Migraines 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 migraine vs. stress related)-- plavix since discontinued Surgical History H/O radioactive iodine thyroid ablation H/O: hysterectomy History of cardiac cath 2000= NO STENTS History of colonoscopy History of tonsillectomy and adenoidectomy History of total left knee replacement Hx of appendectomy Hx of cholecystectomy Hx of mitral valve replacement 1993 (rheumatic valvular disease) Hx of tubal ligation Family History Uncle , of [place] in his 40s Coronary heart disease Social History Smoking Status: Never smoker Second Hand Exposure: Yes ( CHILD); Hx Alcohol Use: Yes Alcohol type: wine Hx Substance Use: No Preferred Language: Lithuanian Communication Ability: Effective Visual Education Teacher Required: No Beliefs That Will Affect Care: None marital status: Single Current Living Situation: Alone Current Living Situation Comment: takes care of mother current occupational status: disabled How many Children do You have: 0 Feels Safe at Home: Yes Assistive Devices: Cane and Walker Review of Systems Review of Systems: Negative otherwise mentioned in HPI. Physical Exam Physical Exam: GENERAL: Alert and oriented x3. NAD, on RA. Appears ill/sick HEENT: No pallor, no icterus. Pupils equal, round and reactive to light. Oral mucosa moist. NECK: No JVD, no neck masses. HEART: S1 and S2 heard. irregular rate and rhythm. Mechanical S1, No murmur, no gallop. RESPIRATORY SYSTEM: Normal AP diameter. No accessory muscle use. No wheezing, no crackles. Decreased BS. ABDOMEN: Soft, bowel sounds present, nontender, no distention. CENTRAL NERVOUS SYSTEM: No facial droop. Speech is clear. Obeys simple commands. Moves extremities. EXTREMITIES: 1+ BLE edema, no erythema seen. Left heel minimally warm and mildly tender on exam, no erythema or wound noted. Results & Data Results & Data ([facility]) Vital Signs (Past 12 Hours) Vital Signs Temp Pulse Resp BP Pulse Ox O2 Del Method 02/18/22 18:22 88 18 98 Room Air 02/18/22 17:29 36.8 C 94 H 20 144/61 H 95 Room Air
[2022-02-18 21:08] LABS: Thyroid Stimulating Hormone 9.363 uIu/ml (0.300-4.500)
[2022-02-18 21:55] LABS: T4 Free Thyroxine 1.17 ng/dl (0.61-1.60)
[2022-02-18] MEDS: POTASSIUM CHLORIDE / WTR 10 MEQ/100 ML PLCT IV SCH ×3 (22:09→23:22)
[2022-02-18] MEDS: DOXYCYCLINE HYCLATE 100 MG in DEXTROSE 5% 100 ML IV SCH (22:09)
[2022-02-18] MEDS: PANTOprazole 40 MG in SYRINGE 0 ML IV SCH (22:10)
[2022-02-18] MEDS ORDERED: IPRATROPIUM BROMIDE/ALBUTEROL respimat INH INH SCH (23:07)
[2022-02-18] MEDS ORDERED: INCENTIVE SPIROMETER SCH (23:07)
[2022-02-18] MEDS ORDERED: NITROGLYCERIN SL 0.4 MG/TAB TAB SL PRN (23:07)
[2022-02-18] MEDS ORDERED: ALBUTEROL HFA 8 GM INHALER INH PRN (23:07)
[2022-02-18] MEDS: METOPROLOL TARTRATE 25 MG TAB PO SCH (23:50)
[2022-02-18] MEDS: traMADol HCL 50 MG TABLET PO PRN (23:50)
[2022-02-19] MEDS: ROSUVASTATIN CALCIUM 20 MG TAB PO SCH ×2 (00:17→20:50)
[2022-02-19] MEDS: AZELASTINE HCL 0.1% NASAL 200 SPRAYS/27,400 MCG BTL SCH ×3 (00:18→20:54)
[2022-02-19] MEDS: POTASSIUM CHLORIDE / WTR 10 MEQ/100 ML PLCT IV SCH ×3 (00:25→04:54)
[2022-02-19] MEDS: PIPERACILLIN/TAZOBACTAM 3.375 GM in DEXTROSE 5% 100 ML IV SCH ×3 (02:31→18:12)
[2022-02-19] MEDS ORDERED: Ipratropium HFA Inhaler (Combivent Respimat P&T Subs) INH SCH (03:00)
[2022-02-19] MEDS ORDERED: Albuterol HFA 8 GM Inhaler (Combivent Respimat P&T Subs) INH SCH (03:00)
[2022-02-19] MEDS: ALBUT/IPRATROP 3MG/0.5MG NEB 3 ML VIAL NEB SCH ×6 (03:19→22:27)
[2022-02-19] MEDS ORDERED: POTASSIUM CHLORIDE 10 MEQ / 100ML WTR IV ONE (04:52)
[2022-02-19 05:59] LABS: Mean Corpuscular Hemoglobin 25.9 pg (25.0-34.0); Mean Corpuscular Hgb Conc 34.5 g/dL (32.0-36.0); Mean Corpuscular Volume 75.1 fL (80.0-100.0); Mean Platelet Volume 10.2 fL (9.4-12.3); Platelet Count 280 K/uL (130-400); RDW Coefficient of Variation 16.2 % (11.5-14.5); RDW Standard Deviation 44.1 fL (36.4-46.3); Red Blood Count 3.86 M/uL (3.93-5.22); White Blood Count 10.77 K/ul (4.8-10.8)
[2022-02-19 06:28] LABS: INR 2.8 (0.9-1.1)
[2022-02-19 06:43] LABS: BUN Creatinine Ratio 10.7 (10-20); Calcium 9.4 mg/dl (8.5-10.1); Est GFR (African American) 35.5 ml/min; Est GFR (Non-African American) 30.7 ml/min; Phosphorus 2.3 mg/dl (2.5-4.9); Potassium 3.5 mmol/L (3.5-5.1)
[2022-02-19] MEDS: LEVOTHYROXINE SODIUM 100 MCG TABLET PO SCH (07:27)
--- NOTE | 2022-02-19 08:15 | Ultrasound Report ---
LEFT LOWER EXTREMITY VENOUS DOPPLER CLINICAL HISTORY: Left lower extremity pain and swelling. COMPARISON STUDY: Left lower extremity venous Doppler ultrasound November 25, 2021. TECHNIQUE: Sonography of the deep venous system of the left lower extremity was performed. Compressi on and augmentation were evaluated. FINDINGS: The left common femoral, superficial femoral and popliteal veins were compressible. Augmen tation was normal. Flow was shown within the deep calf vessels. IMPRESSION: No evidence of deep venous thrombus within the left lower extremity. ACT 112: Negative or not required by law. Electronically signed by: Trey Fox M.D. 02/19/2022 8:13 AM
[2022-02-19] MEDS ORDERED: MAGNESIUM GLYCINATE PO SCH (09:00)
[2022-02-19] MEDS: CHOLECALCIFEROL 1,000 UNITS 25 MCG TAB PO SCH (09:06)
[2022-02-19] MEDS: CITALOPRAM 20 MG TAB PO SCH (09:06)
[2022-02-19] MEDS: METOPROLOL TARTRATE 25 MG TAB PO SCH ×2 (09:06→20:50)
[2022-02-19] MEDS: PANTOprazole 40 MG in SYRINGE 0 ML IV SCH ×2 (09:06→20:50)
[2022-02-19] MEDS: methylPREDNISolone 40 MG in SYRINGE 0 ML IV SCH ×2 (09:06→20:50)
[2022-02-19] MEDS: SPIRONOLACTONE 12.5 MG TAB PO SCH (09:07)
[2022-02-19] MEDS: FOLIC ACID 1 MG TAB PO SCH (09:07)
[2022-02-19] MEDS: FUROSEMIDE 40 MG TAB PO SCH (09:07)
[2022-02-19] MEDS: DOXYCYCLINE HYCLATE 100 MG in DEXTROSE 5% 100 ML IV SCH ×2 (10:41→20:53)
[2022-02-19 14:09] LABS: INR 1.8 (0.9-1.1); Prothrombin Time 18.2 Seconds (9.0-12.0)
--- NOTE | 2022-02-19 15:37 | Hospitalist Progress Note ---
Date of Service February 19, 2022 Assessment & Plan (1) Shortness of breath: Plan: Present on admission with worsening cough Possible related to viral upper respiratory infection vs Possible asthmatic bronchitis CXR showed no evidence of pneumonia Covid 19, flu, RSV negative and legionella pending WBC and procalcitonin elevated on admission Blood cx pending Received IV Zosyn on admission Currently on IV Zosyn and Doxycycline Continue Solumedrol BID, nebulizer treatment and Guaifenesin Continue monitor closely Supratherapeutic INR Patient complained of blood in her sputum/via nose/in her tears that resolved INR on admission 9.6 on admission received IV vit K on admission INR 1.8 today Will resume coumadin since no bleeding noted on admission hgb stable H/O mitral valve replacement with mechanical valve: H/o embolic [place] and TIA received IV vit K due to INR 9.6 INR 1.[address] Molina was notified about to initiate IV heparin drip and agreed ( no official consult placed) Coumadin resumed with INR goal btw 3 to 3.5 Will monitor closely for bleeding Left heel pain: Pt said that she did alot of walk during the cruise Left foot x-ray with no fracture or dislocation but suggestive of mild Achilles tendinosis. Better support/padding at left heel. Doppler of LE showed no evidence of PE Continue tylenol prn Will add lidocaine patch Afib rate continue metoprolol starting on IV heparin drip continue monitor Hyponatremia: Likely Chronic with baseline na btw 130 to 133 Sodium 130 today Monitor Hypokalemia Potassium 2.2 on admission K 3.5 today Continue monitor BMP CKD III Cr baseline 1.4-1.6 Creatinine 1.6 today Monitor renal function Chronic diastolic CHF Continue lasix and aldactone. No sign of volume overload BOBBY on Celexa DM II last HbA1C 7 on 08/09 Will check Hba1c in am Continue SSI GERD on PPI DVT Px Will start on heparin drip due to mechanical valve Code Status Full Code Admission and Anticipated Discharge Date Admission Date: February 18, 2022 Subjective Pt was seen and examined for follow up of SOB Lying in bed with no acute distress She said that she feels much better compare to yesterday Denies any chest pain, palpitation, dizziness and SOB Review of Systems Review of Systems: All systems reviewed & are unremarkable except as noted in Subjective Physical Exam Physical Exam: General- No acute distress Head- atraumatic Eyes- PERRL, EOMI, ENT- oropharynx clear Neck- supple, no JVD Lungs- Diminished BS Heart- Irregularly Irregular, Mechanical S1, Abdomen- normal bowel sounds, soft, nontender Extremities- no calf tenderness Neuro- alert, oriented x 3; PERRL, EOMI; no facial palsy; no dysarthria Skin- warm & dry Results & Data Results & Data ([facility]) Vital Signs (Past 12 Hours) Vital Signs Pulse Pulse Resp BP BP Pulse Ox O2 Del Method 02/19/22 15:18 98 H 20 96 Room Air 02/19/22 14:00 90 20 93 02/19/22 12:00 80 20 96 02/19/22 12:00 104/55 L 02/19/22 10:00 78 23 95 02/19/22 10:00 108/69 02/19/22 09:27 129 H 28 H 94 02/19/22 09:27 118/68 02/19/22 10:47 72 20 96 Room Air 02/19/22 10:00 Room Air 02/19/22 08:00 118 H 23 96 02/19/22 08:00 121/54 L 02/19/22 07:02 81 18 97 Room Air 02/19/22 06:00 77 16 115/64 95 Nasal Cannula 02/19/22 04:00 77 19 97 02/19/22 04:00 103/51 L
[2022-02-19] MEDS ORDERED: COUGH DROP (SUGAR FREE) LOZ 24 LOZ/1 BOX BUCCAL ONE (15:38)
[2022-02-19] MEDS ORDERED: Heparin IV Adult Wt-Based Standard *NO* Bolus Protocol IV ONE (15:46)
[2022-02-19] MEDS ORDERED: WARFARIN SOD 2.5 MG TAB PO ONE (16:00)
[2022-02-19] MEDS: HEPARIN SODIUM/DEXTROSE 25,000 UNITS/500 ML BAG IV SCH (16:34)
[2022-02-19] MEDS: rOPINIRole HCL 2 MG TABLET PO SCH (20:50)
[2022-02-19] MEDS: traMADol HCL 50 MG TABLET PO PRN (21:11)
[2022-02-19 23:44] LABS: Partial Thromboplastin Ratio 3.3
[2022-02-20 00:01] LABS: Partial Thromboplastin Time 91.8 Seconds (21.0-31.0)
[2022-02-20] MEDS: PIPERACILLIN/TAZOBACTAM 3.375 GM in DEXTROSE 5% 100 ML IV SCH ×3 (01:31→17:33)
[2022-02-20] MEDS: ALBUT/IPRATROP 3MG/0.5MG NEB 3 ML VIAL NEB SCH ×6 (03:45→22:07)
[2022-02-20] MEDS: traMADol HCL 50 MG TABLET PO PRN ×2 (05:34→17:38)
[2022-02-20] MEDS: LEVOTHYROXINE SODIUM 100 MCG TABLET PO SCH (05:35)
[2022-02-20 06:28] LABS: Hematocrit (blood only) 25.6 % (34.1-44.9); Mean Corpuscular Hemoglobin 26.2 pg (25.0-34.0); Mean Corpuscular Hgb Conc 35.2 g/dL (32.0-36.0); Mean Corpuscular Volume 74.4 fL (80.0-100.0); Platelet Count 323 K/uL (130-400); RDW Coefficient of Variation 16.4 % (11.5-14.5); RDW Standard Deviation 44.4 fL (36.4-46.3); Red Blood Count 3.44 M/uL (3.93-5.22); White Blood Count 19.35 K/ul (4.8-10.8)
[2022-02-20 06:49] LABS: BUN Creatinine Ratio 11.5 (10-20); Calcium 9.8 mg/dl (8.5-10.1); Creatinine Clr Calc Pharmacy 21.3 ml/min; Est GFR (African American) 30.7 ml/min; Est GFR (Non-African American) 26.5 ml/min; Potassium 2.9 mmol/L (3.5-5.1)
[2022-02-20 07:04] LABS: INR 1.7 (0.9-1.1); Prothrombin Time 17.2 Seconds (9.0-12.0)
[2022-02-20 07:19] LABS: Partial Thromboplastin Ratio 3.2
[2022-02-20] MEDS ORDERED: POTASSIUM CHLORIDE CRTAB 20 MEQ TABCR PO STA (07:47)
[2022-02-20 07:57] LABS: Partial Thromboplastin Time 86.8 Seconds (21.0-31.0)
[2022-02-20] MEDS: AZELASTINE HCL 0.1% NASAL 200 SPRAYS/27,400 MCG BTL SCH ×2 (08:23→20:54)
[2022-02-20] MEDS: CHOLECALCIFEROL 1,000 UNITS 25 MCG TAB PO SCH (08:24)
[2022-02-20] MEDS: FOLIC ACID 1 MG TAB PO SCH (08:24)
[2022-02-20] MEDS: CITALOPRAM 20 MG TAB PO SCH (08:24)
[2022-02-20] MEDS: SPIRONOLACTONE 12.5 MG TAB PO SCH (08:25)
[2022-02-20] MEDS: FUROSEMIDE 80 MG TAB PO SCH (08:25)
[2022-02-20] MEDS: METOPROLOL TARTRATE 25 MG TAB PO SCH ×2 (08:25→20:54)
[2022-02-20] MEDS: PANTOprazole 40 MG in SYRINGE 0 ML IV SCH ×2 (08:26→20:54)
[2022-02-20] MEDS: methylPREDNISolone 40 MG in SYRINGE 0 ML IV SCH ×2 (08:26→20:54)
[2022-02-20] MEDS: DOXYCYCLINE HYCLATE 100 MG in DEXTROSE 5% 100 ML IV SCH ×2 (09:01→22:56)
--- NOTE | 2022-02-20 12:11 | XRay Report ---
XR chest 1V portable HISTORY: 66 years-old Female f/u pulmonary edema acute shortness of breath COMPARISON: February 18, 2022 TECHNIQUE: AP view the chest FINDINGS: Cardiac silhouette is enlarged. Prior median sternotomy with cardiac valvular prosthesis and loop rec order device. Pulmonary vascular congestion with decreased interstitial coarsening. No pneumothorax. Trace pleural effusions, decreased from prior. Improved bibasilar densities. Degenerative changes of the shoulders and spine. IMPRESSION: 1. Cardiomegaly with improved pulmonary edema. 2. Decreased size of the pleural effusions with improved aeration of the lung bases. ACT 112: Negative or not required by law. The above report was generated using voice recognition software. It may contain grammatical, syntax o r spelling errors. Electronically signed by: Gasper Scott M.D. 02/20/2022 12:10 PM
--- NOTE | 2022-02-20 12:35 | Electrocardiogram Report ---
Test Reason : Blood Pressure : / mmHG Vent. Rate : 093 BPM Atrial Rate : 097 BPM P-R Int : 000 ms QRS Dur : 096 ms QT Int : 314 ms P-R-T Axes : 000 -45 004 degrees QTc Int : 390 ms Poor data quality, interpretation may be adversely affected Atrial fibrillation Left anterior fascicular block Nonspecific ST and T wave abnormality Abnormal ECG When compared with ECG of 14-AUG-2021 05:38, Vent. rate has increased BY 31 BPM QT has shortened Confirmed by Maury Hernandez ([id number]) on 02/20/2022 12:35:12 PM Referred By: REFERRED SELF Confirmed By:Maury Hernandez
[2022-02-20] MEDS ORDERED: NSS + 20MEQ KCL 20 MEQ/1,000 ML BAG IV SCH (13:30)
[2022-02-20 15:37] LABS: Partial Thromboplastin Ratio 2.3
[2022-02-20] MEDS: WARFARIN SOD 5 MG TAB PO SCH (15:43)
[2022-02-20 15:50] LABS: Partial Thromboplastin Time 63.6 Seconds (21.0-31.0)
[2022-02-20] MEDS: HEPARIN SODIUM/DEXTROSE 25,000 UNITS/500 ML BAG IV SCH (16:22)
[2022-02-20] MEDS ORDERED: Nursing to Pharmacy Communication SCH (16:30)
[2022-02-20] MEDS ORDERED: BENZOCAINE/MENTHOL 18 LOZ/1 BOX MT PRN (16:44)
[2022-02-20] MEDS: NYSTATIN SUSP 500,000 U/5 ML UDC PO SCH ×2 (17:33→20:54)
[2022-02-20] MEDS: rOPINIRole HCL 2 MG TABLET PO SCH (20:54)
[2022-02-20] MEDS: ROSUVASTATIN CALCIUM 20 MG TAB PO SCH (20:54)
[2022-02-20 21:32] LABS: BUN Creatinine Ratio 12.9 (10-20); Calcium 9.5 mg/dl (8.5-10.1); Creatinine Clr Calc Pharmacy 21.8 ml/min; Est GFR (African American) 31.7 ml/min; Est GFR (Non-African American) 27.3 ml/min; Potassium 3.8 mmol/L (3.5-5.1)
[2022-02-20] MEDS ORDERED: GLUCOSE 10 TAB/TUBE PO PRN (22:08)
[2022-02-20] MEDS ORDERED: DEXTROSE 50% 50 ML SYRINGE IV PRN (22:08)
[2022-02-20] MEDS ORDERED: GLUCAGON FOR INJ 1 MG VIAL SQ PRN (22:08)
[2022-02-20] MEDS ORDERED: GLUCOSE 40% GEL 15 GM TUBE PO PRN (22:08)
[2022-02-20] MEDS ORDERED: CARBOHYDRATES FOR HYPOGLYCEMIA PO PRN (22:08)
[2022-02-20] MEDS: INSULIN ASPART PER UNIT SC SCH (23:06)
--- NOTE | 2022-02-20 23:39 | Hospitalist Progress Note ---
Date of Service February 20, 2022 Assessment & Plan (1) Shortness of breath: Plan: Present on admission with worsening cough Possible related to viral upper respiratory infection vs Possible asthmatic bronchitis CXR showed no evidence of pneumonia Covid 19, flu, RSV negative and legionella pending WBC and procalcitonin elevated on admission Blood cx no growth Received IV Zosyn on admission Currently on IV Zosyn and Doxycycline Continue Solumedrol BID, nebulizer treatment and Guaifenesin Will transition to prednisone tomorrow Continue monitor closely Supratherapeutic INR Patient complained of blood in her sputum/via nose/in her tears that resolved INR on admission 9.6 on admission received IV vit K on admission INR 1.7 today Continue coumadin while on IV heparin drip H/O mitral valve replacement with mechanical valve: H/o embolic [place] and TIA received IV vit K due to INR 9.6 INR 1.[address] Molina was notified about to initiate IV heparin drip and agreed ( no official consult placed) On Coumadin with INR goal btw 3 to 3.5 Will monitor closely for bleeding Left heel pain: Pt said that she did alot of walk during the cruise Left foot x-ray with no fracture or dislocation but suggestive of mild Achilles tendinosis. Better support/padding at left heel. Doppler of LE showed no evidence of PE Continue tylenol prn Continue lidocaine patch Afib rate continue metoprolol Continue IV heparin drip continue monitor Hyponatremia: Likely Chronic with baseline na btw 130 to 133 Pt said that she has not been able to eat Sodium 127 today Case discussed with nephrology ( No official consult placed) that recommended to hold spironolactone Nephrology suggested to give 500 cc of NSS Continue monitor BMP Hypokalemia Potassium 2.2 on admission K 2.8 today Potassium replaced Continue monitor BMP CKD III Cr baseline 1.4-1.6 Creatinine 1.9 today Will hod spironolactone Monitor renal function Chronic diastolic CHF Continue lasix Aldactone help due to bumped in creatinine . No sign of volume overload Continue monitor closely BOBBY on Celexa DM II last HbA1C 7 on 08/09 Will check Hba1c in am Continue SSI GERD on PPI DVT Px on heparin drip due to mechanical valve Code Status Full Code Admission and Anticipated Discharge Date Admission Date: February 18, 2022 Subjective Pt was seen and examined for follow up of SOB Sitting in chair with no acute distress She said that she feels much better compare to yesterday She said that she continue to cough Denies any chest pain, palpitation, dizziness and SOB Review of Systems Review of Systems: All systems reviewed & are unremarkable except as noted in Subjective Physical Exam Physical Exam: General- No acute distress Head- atraumatic Eyes- PERRL, EOMI, ENT- oropharynx clear Neck- supple, no JVD Lungs- Diminished BS Heart- Irregularly Irregular, Mechanical S1 Abdomen- normal bowel sounds, soft, nontender Extremities- no calf tenderness Neuro- alert, oriented x 3; PERRL, EOMI; no facial palsy; no dysarthria Skin- warm & dry Results & Data Results & Data ([facility]) Vital Signs (Past 12 Hours) Vital Signs Temp Pulse Resp BP Pulse Ox Pulse Ox O2 Del Method 02/20/22 22:08 93 H 16 96 Room Air 02/20/22 20:00 Room Air 02/20/22 20:00 97 02/20/22 18:13 87 18 98 Room Air 02/20/22 15:41 36.8 C 88 18 134/71 99 Room Air 02/20/22 14:35 85 22 98 Room Air O2 Del Method 02/20/22 22:08 02/20/22 20:00 02/20/22 20:00 Room Air 02/20/22 18:13 02/20/22 15:41 02/20/22 14:35
[2022-02-21] MEDS ORDERED: PHARMACY GLYCEMIC MGMT CONSULT PRN (00:04)
[2022-02-21] MEDS ORDERED: INSULIN HUMAN REGULAR PER UNIT 5 UNITS in SYRINGE 4.95 ML IV ONE (00:45)
[2022-02-21] MEDS ORDERED: LANTUS PER UNIT CHARGE SQ ONE (00:45)
[2022-02-21] MEDS: PIPERACILLIN/TAZOBACTAM 3.375 GM in DEXTROSE 5% 100 ML IV SCH ×2 (02:25→10:08)
[2022-02-21] MEDS: ALBUT/IPRATROP 3MG/0.5MG NEB 3 ML VIAL NEB SCH ×2 (02:39→04:53)
[2022-02-21] MEDS: INSULIN ASPART PER UNIT SC SCH ×5 (03:42→21:09)
[2022-02-21] MEDS: LEVOTHYROXINE SODIUM 100 MCG TABLET PO SCH (06:33)
[2022-02-21 07:36] LABS: BUN Creatinine Ratio 14.2 (10-20); Calcium 9.5 mg/dl (8.5-10.1); Creatinine Clr Calc Pharmacy 23.1 ml/min; Est GFR (African American) 33.8 ml/min; Est GFR (Non-African American) 29.2 ml/min; Magnesium 1.9 mg/dl (1.7-2.4); Potassium 4.1 mmol/L (3.5-5.1)
[2022-02-21 07:44] LABS: INR 2.9 (0.9-1.1); Partial Thromboplastin Ratio 3.5; Prothrombin Time 28.8 Seconds (9.0-12.0)
[2022-02-21 07:49] LABS: Partial Thromboplastin Time 95.7 Seconds (21.0-31.0)
[2022-02-21] MEDS: AZELASTINE HCL 0.1% NASAL 200 SPRAYS/27,400 MCG BTL SCH ×2 (08:27→21:08)
[2022-02-21] MEDS: CITALOPRAM 20 MG TAB PO SCH (08:27)
[2022-02-21] MEDS: CHOLECALCIFEROL 1,000 UNITS 25 MCG TAB PO SCH (08:27)
[2022-02-21] MEDS: FOLIC ACID 1 MG TAB PO SCH (08:28)
[2022-02-21] MEDS: FUROSEMIDE 40 MG TAB PO SCH (08:28)
[2022-02-21] MEDS: PANTOprazole 40 MG in SYRINGE 0 ML IV SCH (08:29)
[2022-02-21] MEDS: METOPROLOL TARTRATE 25 MG TAB PO SCH ×2 (08:29→21:10)
[2022-02-21] MEDS: NYSTATIN SUSP 500,000 U/5 ML UDC PO SCH ×4 (08:29→21:10)
[2022-02-21] MEDS: predniSONE 20 MG TAB PO SCH (08:29)
[2022-02-21] MEDS ORDERED: ALBUT/IPRATROP 3MG/0.5MG NEB 3 ML VIAL NEB PRN (09:16)
[2022-02-21] MEDS: traMADol HCL 50 MG TABLET PO PRN ×2 (10:00→21:16)
[2022-02-21 10:33] LABS: Estimated Average Glucose 143 mg/dl; Hemoglobin A1C 6.6 % (4.5-5.6)
[2022-02-21] MEDS: DOXYCYCLINE HYCLATE 100 MG in DEXTROSE 5% 100 ML IV SCH ×2 (10:58→21:16)
--- NOTE | 2022-02-21 12:19 | Pharmacy Report ---
Pharmacy Glycemic Short Note 2 - Date of Service February 21, 2022 - Glycemic Short BSG Results (Last 24 hours): 02/20/22 02/20/22 02/21/22 20:43 22:59 03:37 Glucose 381 H* POC Glucose 353 H* 166 H 02/21/22 02/21/22 02/21/22 06:30 07:39 11:14 Glucose 213 H POC Glucose 81 332 H* 02/21/22 11:14 Glucose POC Glucose 263 H OUTPATIENT ANTIDIABETIC REGIMEN: * none * Hemoglobin A1C 7% 07/19/21, repeat 6.6% on 02/21/22 ASSESSMENT: * Patient is a 66 year old female admitted with SOB/pneumonia. Pharmacy is consulted for hyperglycemia management. * Patient with hyperglycemia (381) last evening, given 5 units of regular IV insulin, plus 8 units of Lantus and 4 units of correctional insulin * Fasting blood glucose 81 this AM (POC), random blood glucose 213 (venipuncture) this AM, lunchtime glucose 263, unclear pattern for blood sugars, will conservatively change goal range to 120-160 to prevent hypoglycemia * Patient receiving IV Zosyn and doxycycline, is on heparin drip, and is receiving prednisone 40mg daily * Tightened Novolog parameters as outlined below due to elevated prandial blood sugars * Will add basal insulin tonight, 5 units, hold if BSG is below goal PLAN FOR INPATIENT GLYCEMIC CONTROL: * Basal insulin * Lantus 5 units HS (hold if BSG <120) * Bolus insulin * NovoLog per scale ACHS or Q6hrs while NPO * Goal Range: Low 120 mg/dL - High 160 mg/dL * Correction Factor: 45 mg/dL/unit * Nutritional / Prandial insulin per carb ratio of 1 unit per 15 grams CHO consumed
[2022-02-21] MEDS: BENZONATATE 100 MG CAPSULE PO PRN ×2 (13:28→21:08)
[2022-02-21 15:18] LABS: Partial Thromboplastin Ratio 2.6
[2022-02-21 15:33] LABS: Partial Thromboplastin Time 71.7 Seconds (21.0-31.0)
[2022-02-21] MEDS: WARFARIN SOD 5 MG TAB PO SCH (16:48)
[2022-02-21] MEDS: HEPARIN SODIUM/DEXTROSE 25,000 UNITS/500 ML BAG IV SCH (16:56)
--- NOTE | 2022-02-21 17:29 | Hospitalist Progress Note ---
Date of Service February 21, 2022 Assessment & Plan (1) Shortness of breath: Plan: Present on admission with worsening cough Possible related to viral upper respiratory infection vs Possible asthmatic bronchitis CXR showed no evidence of pneumonia Covid 19, flu, RSV negative and legionella pending WBC and procalcitonin elevated on admission Blood cx no growth Received IV Zosyn on admission Currently on IV Zosyn and Doxycycline Continue Solumedrol BID, nebulizer treatment and Guaifenesin Continue to prednisone PO prednisone Continue monitor closely Supratherapeutic INR Patient complained of blood in her sputum/via nose/in her tears that resolved INR on admission 9.6 on admission received IV vit K on admission INR 2.9 today IV heparin drip discontinued Continue coumadin H/O mitral valve replacement with mechanical valve: H/o embolic [place] and TIA received IV vit K due to INR 9.6 INR 2.[address] Molina was notified about to initiate IV heparin drip and agreed ( no official consult placed) Case reviewed today with Dr. Molina recommend to discontinue IV heparin drip Continue Coumadin with INR goal btw 3 to 3.5 Continue monitor PT/INR Left heel pain: Pt said that she did alot of walk during the cruise Left foot x-ray with no fracture or dislocation but suggestive of mild Achilles tendinosis. Better support/padding at left heel. Doppler of LE showed no evidence of PE Continue tylenol prn Continue lidocaine patch Afib rate continue metoprolol Dscontinued IV heparin drip INR 2.9, today Continue coumadin Hyponatremia: Likely Chronic with baseline na btw 130 to 133 Pt said that she has not been able to eat Sodium 131 today Case discussed with nephrology ( No official consult placed) that recommended to hold spironolactone Continue monitor BMP Hypokalemia Potassium 2.2 on admission K 4.1 today Potassium replaced Continue monitor BMP CKD III Cr baseline 1.4-1.6 Creatinine 1.7 today Resumed spironolactone Monitor renal function Chronic diastolic CHF Continue lasix Aldactone help due to bumped in creatinine . No sign of volume overload Continue monitor closely BOBBY on Celexa DM II Most recent hemoglobin A1c 6.6 Continue SSI GERD on PPI DVT Px on heparin drip due to mechanical valve Code Status Full Code Admission and Anticipated Discharge Date Admission Date: February 18, 2022 Subjective Pt was seen and examined for follow up of SOB Sitting in chair with no acute distress She said that she feels much better compare to yesterday She said that the cough does not seems to get better Denies any chest pain, palpitation, dizziness and SOB Review of Systems Review of Systems: All systems reviewed & are unremarkable except as noted in Subjective Physical Exam Physical Exam: General- No acute distress Head- atraumatic Eyes- PERRL, EOMI, ENT- oropharynx clear Neck- supple, no JVD Lungs- Diminished BS Heart- Irregularly Irregular, Mechanical S1 Abdomen- normal bowel sounds, soft, nontender Extremities- no calf tenderness Neuro- alert, oriented x 3; PERRL, EOMI; no facial palsy; no dysarthria Skin- warm & dry Results & Data Results & Data ([facility]) Vital Signs (Past 12 Hours) Vital Signs Temp Pulse Pulse Resp BP Pulse Ox O2 Del Method 02/21/22 16:30 36.7 C 63 18 119/65 98 Room Air 02/21/22 16:00 91 H 02/21/22 13:46 79 18 97 Room Air 02/21/22 11:59 36.8 C 79 18 128/76 97 Room Air 02/21/22 08:20 Room Air 02/21/22 08:00 37.2 C 70 18 119/63 97 Room Air 02/21/22 07:21 87
[2022-02-21] MEDS ORDERED: LANTUS PER UNIT CHARGE SQ SCH (21:00)
[2022-02-21] MEDS: rOPINIRole HCL 2 MG TABLET PO SCH (21:10)
[2022-02-21] MEDS: PANTOprazole 40 MG TAB PO SCH (21:10)
[2022-02-21] MEDS: ROSUVASTATIN CALCIUM 20 MG TAB PO SCH (21:11)
[2022-02-22] MEDS: LEVOTHYROXINE SODIUM 100 MCG TABLET PO SCH (05:57)
[2022-02-22 07:04] LABS: Hematocrit (blood only) 25.4 % (34.1-44.9); Hemoglobin 8.8 g/dl (12.0-16.0); Mean Corpuscular Hemoglobin 26.3 pg (25.0-34.0); Mean Corpuscular Hgb Conc 34.6 g/dL (32.0-36.0); Mean Platelet Volume 9.7 fL (9.4-12.3); Platelet Count 282 K/uL (130-400); RDW Coefficient of Variation 16.6 % (11.5-14.5); RDW Standard Deviation 45.2 fL (36.4-46.3); Red Blood Count 3.34 M/uL (3.93-5.22); White Blood Count 13.32 K/ul (4.8-10.8)
[2022-02-22 07:50] LABS: INR 5.1 (0.9-1.1); Prothrombin Time 49.7 Seconds (9.0-12.0)
[2022-02-22 07:58] LABS: BUN Creatinine Ratio 16.3 (10-20); Calcium 9.4 mg/dl (8.5-10.1); Creatinine Clr Calc Pharmacy 25.4 ml/min; Est GFR (Non-African American) 32.8 ml/min; Phosphorus 2.4 mg/dl (2.5-4.9); Potassium 3.2 mmol/L (3.5-5.1)
[2022-02-22] MEDS ORDERED: LANTUS PER UNIT CHARGE SQ ONE (08:00)
[2022-02-22] MEDS: INSULIN ASPART PER UNIT SC SCH ×4 (08:41→20:20)
[2022-02-22] MEDS ORDERED: POTASSIUM CHLORIDE CRTAB 20 MEQ TABCR PO STA (09:06)
[2022-02-22] MEDS ORDERED: POTASSIUM PHOS 3 MMOL/1 ML INFUSION IV STA (09:06)
[2022-02-22] MEDS: FUROSEMIDE 80 MG TAB PO SCH (09:30)
[2022-02-22] MEDS: CITALOPRAM 20 MG TAB PO SCH (09:30)
[2022-02-22] MEDS ORDERED: SPIRONOLACTONE 12.5 MG TAB PO ONE (09:30)
[2022-02-22] MEDS: AZELASTINE HCL 0.1% NASAL 200 SPRAYS/27,400 MCG BTL SCH ×2 (09:30→20:22)
[2022-02-22] MEDS: FOLIC ACID 1 MG TAB PO SCH (09:30)
[2022-02-22] MEDS: CHOLECALCIFEROL 1,000 UNITS 25 MCG TAB PO SCH (09:30)
[2022-02-22] MEDS: METOPROLOL TARTRATE 25 MG TAB PO SCH ×2 (09:31→20:21)
[2022-02-22] MEDS: predniSONE 20 MG TAB PO SCH (09:31)
[2022-02-22] MEDS: PANTOprazole 40 MG TAB PO SCH ×2 (09:31→20:21)
[2022-02-22] MEDS: NYSTATIN SUSP 500,000 U/5 ML UDC PO SCH ×4 (09:32→20:20)
[2022-02-22] MEDS: DOXYCYCLINE HYCLATE 100 MG in DEXTROSE 5% 100 ML IV SCH ×2 (09:41→22:37)
[2022-02-22] MEDS ORDERED: POTASSIUM PHOSPHATE 21 MMOL in SODIUM CHLORIDE 0.9% 500 ML IV ONE (09:45)
[2022-02-22] MEDS: traMADol HCL 50 MG TABLET PO PRN ×2 (15:10→22:29)
[2022-02-22 17:22] LABS: Legionella pneumoph IgM, IFA <1:256 TITER
[2022-02-22] MEDS: ROSUVASTATIN CALCIUM 20 MG TAB PO SCH (20:21)
[2022-02-22] MEDS: rOPINIRole HCL 2 MG TABLET PO SCH (20:21)
--- NOTE | 2022-02-22 23:22 | Hospitalist Progress Note ---
Date of Service February 22, 2022 Assessment & Plan (1) Shortness of breath: Plan: Present on admission with worsening cough Possible related to viral upper respiratory infection vs Possible asthmatic bronchitis CXR showed no evidence of pneumonia Covid 19, flu, RSV negative and legionella pending WBC and procalcitonin elevated on admission Blood cx no growth Received IV Zosyn on admission IV Zosyn discontinued Continue Doxycycline Continue prednisone, nebulizer treatment and Guaifenesin Continue monitor closely Supratherapeutic INR Patient complained of blood in her sputum/via nose/in her tears that resolved INR on admission 9.6 on admission received IV vit K on admission INR 5.1 today IV heparin drip discontinued Coumadin on hold due to supratherapeutic INR H/O mitral valve replacement with mechanical valve: H/o embolic [place] and TIA received IV vit K due to INR 9.6 INR 5.1 today Continue to hold Coumadin since INR 5.1 (goal btw 3 to 3.5 ) Continue monitor PT/INR Left heel pain: Pt said that she did alot of walk during the cruise Left foot x-ray with no fracture or dislocation but suggestive of mild Achilles tendinosis. Better support/padding at left heel. Doppler of LE showed no evidence of PE Continue tylenol prn Continue lidocaine patch Afib rate continue metoprolol Discontinued IV heparin drip Coumadin on hold, INR 5.1 Hyponatremia: Likely Chronic with baseline na btw 130 to 133 Pt said that she has not been able to eat Sodium 132 today Case discussed with nephrology ( No official consult placed) that recommended to hold spironolactone Continue monitor BMP Hypokalemia Potassium 2.2 on admission K 3.2 today Potassium replaced Continue monitor BMP CKD III Cr baseline 1.4-1.6 Creatinine 1.6 today Continue Lasix and spironolactone Monitor renal function Chronic diastolic CHF Continue lasix and Aldactone No sign of volume overload Continue monitor closely BOBBY on Celexa DM II Most recent hemoglobin A1c 6.6 Continue SSI GERD on PPI DVT Px on heparin drip due to mechanical valve Code Status Full Code Admission and Anticipated Discharge Date Admission Date: February 18, 2022 Subjective Pt was seen and examined for follow up of SOB and cough Lying in bed with no acute distress watching TV She said that she continues to cough Denies any chest pain, palpitation, dizziness and SOB Review of Systems Review of Systems: All systems reviewed & are unremarkable except as noted in Subjective Physical Exam Physical Exam: General- No acute distress Head- atraumatic Eyes- PERRL, EOMI, ENT- oropharynx clear Neck- supple, no JVD Lungs- Diminished BS Heart- Irregularly, Mechanical S1 Abdomen- normal bowel sounds, soft, nontender Extremities- no calf tenderness Neuro- alert, oriented x 3; PERRL, EOMI; no facial palsy; no dysarthria Skin- warm & dry Results & Data Results & Data ([facility]) Vital Signs (Past 12 Hours) Vital Signs Temp Pulse Pulse Resp BP Pulse Ox Pulse Ox 02/22/22 22:51 36.8 C 78 20 115/45 L 95 02/22/22 20:51 98 02/22/22 20:20 02/22/22 19:00 36.5 C 85 20 127/64 95 02/22/22 16:24 68 02/22/22 15:43 36.7 C 69 18 113/51 L 94 02/22/22 11:51 36.8 C 71 16 119/55 L 94 O2 Del Method O2 Del Method 02/22/22 22:51 Room Air 02/22/22 20:51 Room Air 02/22/22 20:20 Room Air 02/22/22 19:00 Room Air 02/22/22 16:24 02/22/22 15:43 Room Air 02/22/22 11:51 Room Air
[2022-02-23] MEDS: LEVOTHYROXINE SODIUM 100 MCG TABLET PO SCH (06:01)
[2022-02-23 07:14] LABS: Hematocrit (blood only) 27.4 % (34.1-44.9); Hemoglobin 9.3 g/dl (12.0-16.0); Mean Corpuscular Hemoglobin 26.2 pg (25.0-34.0); Mean Corpuscular Hgb Conc 33.9 g/dL (32.0-36.0); Mean Corpuscular Volume 77.2 fL (80.0-100.0); Mean Platelet Volume 9.9 fL (9.4-12.3); Platelet Count 278 K/uL (130-400); RDW Coefficient of Variation 17.2 % (11.5-14.5); RDW Standard Deviation 47.4 fL (36.4-46.3); Red Blood Count 3.55 M/uL (3.93-5.22); White Blood Count 10.78 K/ul (4.8-10.8)
[2022-02-23 07:41] LABS: INR 6.4 (0.9-1.1)
[2022-02-23 07:47] LABS: BUN Creatinine Ratio 16.9 (10-20); Calcium 9.3 mg/dl (8.5-10.1); Creatinine Clr Calc Pharmacy 27.1 ml/min; Est GFR (African American) 41.7 ml/min; Potassium 3.2 mmol/L (3.5-5.1)
[2022-02-23] MEDS ORDERED: LANTUS PER UNIT CHARGE SQ SCH (09:00)
[2022-02-23] MEDS ORDERED: SPIRONOLACTONE 12.5 MG TAB PO SCH (09:00)
[2022-02-23] MEDS: AZELASTINE HCL 0.1% NASAL 200 SPRAYS/27,400 MCG BTL SCH (09:29)
[2022-02-23] MEDS: CITALOPRAM 20 MG TAB PO SCH (09:29)
[2022-02-23] MEDS: CHOLECALCIFEROL 1,000 UNITS 25 MCG TAB PO SCH (09:29)
[2022-02-23] MEDS: METOPROLOL TARTRATE 25 MG TAB PO SCH (09:30)
[2022-02-23] MEDS: NYSTATIN SUSP 500,000 U/5 ML UDC PO SCH ×2 (09:30→12:44)
[2022-02-23] MEDS: FOLIC ACID 1 MG TAB PO SCH (09:30)
[2022-02-23] MEDS: FUROSEMIDE 40 MG TAB PO SCH (09:30)
[2022-02-23] MEDS: predniSONE 20 MG TAB PO SCH (09:30)
[2022-02-23] MEDS: PANTOprazole 40 MG TAB PO SCH (09:30)
[2022-02-23] MEDS ORDERED: POTASSIUM CHLORIDE CRTAB 20 MEQ TABCR PO STA (09:37)
[2022-02-23] MEDS: INSULIN ASPART PER UNIT SC SCH ×2 (09:44→12:44)
[2022-02-23] MEDS: BENZONATATE 100 MG CAPSULE PO PRN (09:45)
--- NOTE | 2022-02-23 10:28 | Pharmacy Report ---
Pharmacy Glycemic Short Note 2 - Date of Service February 23, 2022 - Glycemic Short BSG Results (Last 24 hours): 02/22/22 02/22/22 02/22/22 11:11 16:29 20:10 Glucose POC Glucose 70 161 H 231 H 02/23/22 02/23/22 06:17 07:10 Glucose 98 POC Glucose 133 H OUTPATIENT ANTIDIABETIC REGIMEN: * none * Hemoglobin A1C 7% 07/19/21, repeat 6.6% on 02/21/22 ASSESSMENT: 02/23: * Patient received 16 units of insulin yesterday of which 5 were basal * Fasting blood glucose of 122, continue 5 units of Lantus * Adjusting Novolog parameters to fit patient's needs, variability in prandial BSGs (low at lunch and elevated in the evening) * Patient continues on PO prednisone 40mg and IV doxycycline 02/21: * Patient is a 66 year old female admitted with SOB/pneumonia. Pharmacy is consulted for hyperglycemia management. * Patient with hyperglycemia (381) last evening, given 5 units of regular IV insulin, plus 8 units of Lantus and 4 units of correctional insulin * Fasting blood glucose 81 this AM (POC), random blood glucose 213 (venipuncture) this AM, lunchtime glucose 263, unclear pattern for blood sugars, will conservatively change goal range to 120-160 to prevent hypoglycemia * Patient receiving IV Zosyn and doxycycline, is on heparin drip, and is receiving prednisone 40mg daily * Tightened Novolog parameters as outlined below due to elevated prandial blood sugars * Will add basal insulin tonight, 5 units, hold if BSG is below goal PLAN FOR INPATIENT GLYCEMIC CONTROL: * Basal insulin * Lantus 5 units QAM * Bolus insulin * NovoLog per scale ACHS or Q6hrs while NPO * Goal Range: Low 120 mg/dL - High 160 mg/dL * Correction Factor: 35 mg/dL/unit * Nutritional / Prandial insulin per carb ratio of 1 unit per 12 grams CHO consumed
[2022-02-23] MEDS: DOXYCYCLINE HYCLATE 100 MG in DEXTROSE 5% 100 ML IV SCH (11:00)
--- NOTE | 2022-02-23 13:23 | Discharge Summary ---
Date of Service February 23, 2022 Admission HPI Per Admitting Provider 65 yr female with H/O DM II diet controlled, CKD III, hypothyroidism, hyperlipidemia, atrial fibrillation, tachybrady syndrome, chronic diastolic CHF, history of rheumatic heart disease, CAD, varicose veins of both legs, GERD, generalized osteoarthritis, restless legs syndrome, S/P mechanical mitral valve replacement, TIA, Recurrent falls, generalized anxiety disorderpresented to the ED 02/18 with complaint of not feeling well since last 3 to 4 days. Patient went on a cruise for 9 days, and she started having cough since last 3 to 4 days, productive of brownish sputum, had fevers, became weak, cough progressively worsened, ran out of medication 2 days prior to arrival due to delays from layovers/missing transits etc. Also see complained of bleeding through her nose/in tears and in the sputum yesterday which has stopped today. Pt directly coming from the cruise to the hospital. Patient also reports congested nose and congested chest/chest tightness, feeling very fatigued and weak, decreased appetite. Patient denies any diarrhea or any pain or burning with passing urine or chest pain or palpitation. Patient also complains of back of left ankle pain which was warm and tender on exam. Patient denies any smoking history or recreational drug use history, drinks 1 glass of wine 2-3 times a week. Mother has history of eczema and COVID, father has history of cancer, brother has history of allergies. Medications were reviewed with the patient. Patient takes Coumadin 2.5 mg on Saturday and 5 mg rest of the days. Patient did not take any of her medications since 2 days ago prior to arrival due to her meds running out while on cruise/transit. She did not take her Lasix for 1 day. Admission Exam Per Admitting Provider GENERAL: Alert and oriented x3. NAD, on RA. Appears ill/sick HEENT: No pallor, no icterus. Pupils equal, round and reactive to light. Oral mucosa moist. NECK: No JVD, no neck masses. HEART: S1 and S2 heard. irregular rate and rhythm. Mechanical S1, No murmur, no gallop. RESPIRATORY SYSTEM: Normal AP diameter. No accessory muscle use. No wheezing, no crackles. Decreased BS. ABDOMEN: Soft, bowel sounds present, nontender, no distention. CENTRAL NERVOUS SYSTEM: No facial droop. Speech is clear. Obeys simple commands. Moves extremities. EXTREMITIES: 1+ BLE edema, no erythema seen. Left heel minimally warm and mildly tender on exam, no erythema or wound noted. Principal Diagnosis Cough/Bronchitis Supratherapeutic INR H/O mitral valve replacement with mechanical valve: Left heel pain: Atrial fibrillation Hyponatremia: Hypokalemia Chronic Kidney disease stage 3 Chronic diastolic CHF Diabetes Discharge Exam General- No acute distress Head- atraumatic Eyes- PERRL, EOMI, ENT- oropharynx clear Neck- supple, no JVD Lungs- Diminished BS, No wheezing Heart- Irregularly, Mechanical S1 Abdomen- normal bowel sounds, soft, nontender Extremities- no calf tenderness Neuro- alert, oriented x 3; PERRL, EOMI; no facial palsy; no dysarthria Skin- warm & dry Discharge Data Allergies Allergy/AdvReac Type Severity Reaction Status Date / Time hydroxyzine Allergy Severe DYSTONIA Verified 02/18/22 19:32 prochlorperazine Allergy Severe NUCHAL Verified 02/18/22 19:32 DYSTONIA promethazine Allergy Severe NUCHAL Verified 02/18/22 19:32 DYSTONIA oxycodone Allergy Intermediate Numbness Verified 02/18/22 19:32 PERRY Inhibitors AdvReac Intermediate COUGH Verified 02/18/22 19:32 gabapentin AdvReac Intermediate Drowsy Verified 02/18/22 19:32 lisinopril AdvReac Intermediate Cough Verified 02/18/22 19:32 metformin AdvReac Intermediate DIARRHEA Verified 02/18/22 19:32 parsley AdvReac Intermediate AGITATION Verified 02/18/22 19:32 tetracycline AdvReac Intermediate DYSPEPSIA Verified 02/18/22 19:32 NAUSEA MEDICINES Allergy Unknown SEE NOTE Uncoded 02/18/22 19:32 BELOW Consultations 02/18/22 19:24 ED Decision to Admit Stat Ordered Studies 02/18/22 17:44 US venous doppler LE LT Urgent Laboratory Results WBC 10.78 K/ul (4.8-10.8) 02/23/22 06:17 RBC 3.55 M/uL (3.93-5.22) L 02/23/22 06:17 Hgb 9.3 g/dl (12.0-16.0) L 02/23/22 06:17 Hct 27.4 % (34.1-44.9) L 02/23/22 06:17 MCV 77.2 fL (80.0-100.0) L 02/23/22 06:17 MCH 26.2 pg (25.0-34.0) 02/23/22 06:17 MCHC 33.9 g/dL (32.0-36.0) 02/23/22 06:17 RDW Std Deviation 47.4 fL (36.4-46.3) H 02/23/22 06:17 RDW Coeff of Courtney 17.2 % (11.5-14.5) H 02/23/22 06:17 Plt Count 278 K/uL (130-400) 02/23/22 06:17 MPV 9.9 fL (9.4-12.3) 02/23/22 06:17 Immature Gran % (Auto) 0.9 % 02/18/22 18:00 Neut % (Auto) 82.0 % 02/18/22 18:00 Lymph % (Auto) 7.9 % 02/18/22 18:00 [place] % (Auto) 8.6 % 02/18/22 18:00 Eos % (Auto) 0.3 % 02/18/22 18:00 Baso % (Auto) 0.3 % 02/18/22 18:00 Neut # (Auto) 9.47 K/uL (1.4-6.5) H 02/18/22 18:00 Lymph # (Auto) 0.91 K/uL (1.2-3.4) L 02/18/22 18:00 [place] # (Auto) 0.99 K/uL (0.24-0.82) H 02/18/22 18:00 Eos # (Auto) 0.04 K/uL (0-0.50) 02/18/22 18:00 Baso # (Auto) 0.03 K/uL (0-0.2) 02/18/22 18:00 Immature Gran # (Auto) 0.10 K/uL (0.00-0.02) H 02/18/22 18:00 PT 62.0 Seconds (9.0-12.0) H 02/23/22 06:17 INR 6.4 (0.9-1.1) H* 02/23/22 06:17 APTT 71.7 Seconds (21.0-31.0) H* 02/21/22 14:32 PTT Ratio 2.6 02/21/22 14:32 Sodium 134 mmol/L (136-145) L 02/23/22 06:17 Potassium 3.2 mmol/L (3.5-5.1) L 02/23/22 06:17 Chloride 95 mmol/L (98-107) L 02/23/22 06:17 Carbon Dioxide 33 mmol/L (21-32) H 02/23/22 06:17 Anion Gap 6 (3-11) 02/23/22 06:17 BUN 25 mg/dl (6-23) H 02/23/22 06:17 Creatinine 1.48 mg/dl (0.6-1.2) H 02/23/22 06:17 Est Cr Clr Drug Dosing 27.1 ml/min 02/23/22 06:17 Est GFR ( Amer) 41.7 ml/min 02/23/22 06:17 Est GFR (Non-Af Amer) 36.0 ml/min 02/23/22 06:17 BUN/Creatinine Ratio 16.9 (10-20) 02/23/22 06:17 Glucose 98 mg/dl (70-99(Fasting)) 02/23/22 06:17 POC Glucose 113 mg/dl (70-99) H 02/23/22 11:08 Estimat Average Glucose 143 mg/dl 02/21/22 Unknown Hemoglobin A1c 6.6 % (4.5-5.6) H 02/21/22 Unknown Osmolality 283 mOsm/kg (280-300) 02/20/22 14:48 Calcium 9.3 mg/dl (8.5-10.1) 02/23/22 06:17 Phosphorus 2.4 mg/dl (2.5-4.9) L 02/22/22 06:38 Magnesium 1.9 mg/dl (1.7-2.4) 02/21/22 06:30 Total Bilirubin 1.1 mg/dl (0.2-1.0) H 02/18/22 18:00 AST 97 U/L (13-39) H 02/18/22 18:00 ALT 56 U/L (7-52) H 02/18/22 18:00 Alkaline Phosphatase 188 U/L (34-104) H 02/18/22 18:00 Troponin I High Sens 16.1 pg/ml (0-14) H 02/18/22 18:00 B-Natriuretic Peptide 80 pg/ml (0-100) 02/18/22 20:09 Total Protein 8.4 gm/dl (6.0-8.3) H 02/18/22 18:00 Albumin 3.7 gm/dl (3.4-5.0) 02/18/22 18:00 Globulin 4.7 gm/dl (2.5-4.0) H 02/18/22 18:00 Albumin/Globulin Ratio 0.8 (0.9-2) L 02/18/22 18:00 Procalcitonin 0.46 ng/ml (0-0.5) 02/22/22 06:38 TSH 9.363 uIu/ml (0.300-4.500) H 02/18/22 18:00 Free T4 1.17 ng/dl (0.61-1.60) 02/18/22 18:00 Urine Osmolality 189 mOsm/kg (500-800) L 02/20/22 15:35 Ur Random Sodium < 10 mmol/L 02/20/22 15:35 Nasal Screen MRSA (PCR) Negative (Negative) 02/19/22 09:25 SARS-CoV-2 (PCR) NEGATIVE (Negative) 02/19/22 10:59 Influenza Type A (PCR) Negative (Neg) 02/18/22 18:05 Influenza Type B (PCR) Negative (Neg) 02/18/22 18:05 L.pneumophila IgM Ab <1:256 TITER 02/18/22 20:58 Urine Legionella Ag SEE NOTE 02/18/22 19:00 RSV (RT-PCR) Negative (Neg) 02/18/22 18:05 Impressions Venous Doppler Study 02/18/22 17:44 LEFT LOWER EXTREMITY VENOUS DOPPLER CLINICAL HISTORY: Left lower extremity pain and swelling. COMPARISON STUDY: Left lower extremity venous Doppler ultrasound November 25, 2021. TECHNIQUE: Sonography of the deep venous system of the left lower extremity was performed. Compression and augmentation were evaluated. FINDINGS: The left common femoral, superficial femoral and popliteal veins were compressible. Augmentation was normal. Flow was shown within the deep calf vessels. IMPRESSION: No evidence of deep venous thrombus within the left lower extremity. ACT 112: Negative or not required by law. Electronically signed by: Trey Fox M.D. 02/19/2022 8:13 AM Foot X-Ray 02/18/22 19:13 XR foot LT 2V CLINICAL HISTORY: pain/redness to heel COMPARISON STUDY: None. FINDINGS: Small plantar heel spur is noted. No destructive changes to suggest an osteomyelitis. Mild thickening at the distal Achilles tendon. No fracture or dislocation within the left foot. The bones are osteopenic. The Lisfranc joint is intact. [id number] degenerative changes seen throughout the left foot. IMPRESSION: 1. Mild thickening at the distal Achilles tendon. This likely represents a mild Achilles tendinosis. 2. No fracture or dislocation within the left foot. 3. Mild to moderate degenerative changes. ACT 112: Negative or not required by law. Electronically signed by: Darshan Mosquera M.D. 02/18/2022 7:48 PM Chest X-Ray 02/20/22 09:25 XR chest 1V portable HISTORY: 66 years-old Female f/u pulmonary edema acute shortness of breath COMPARISON: February 18, 2022 TECHNIQUE: AP view the chest FINDINGS: Cardiac silhouette is enlarged. Prior median sternotomy with cardiac valvular prosthesis and loop recorder device. Pulmonary vascular congestion with decreased interstitial coarsening. No pneumothorax. Trace pleural effusions, decreased from prior. Improved bibasilar densities. Degenerative changes of the shoulders and spine. IMPRESSION: 1. Cardiomegaly with improved pulmonary edema. 2. Decreased size of the pleural effusions with improved aeration of the lung bases. ACT 112: Negative or not required by law. The above report was generated using voice recognition software. It may contain grammatical, syntax or spelling errors. Electronically signed by: Gasper Scott M.D. 02/20/2022 12:10 PM Hospital Course (1) Shortness of breath: Bronchitis Present on admission with worsening cough Possible related to viral upper respiratory infection vs Possible asthmatic bronchitis CXR showed no evidence of pneumonia Covid 19, flu, RSV negative and legionella pending WBC and procalcitonin elevated on admission Blood cx no growth Received IV Zosyn on admission IV Zosyn discontinued Received Doxycycline #6 days. Will discontinue abx since CXR showed no infiltrate Continue prednisone, nebulizer treatment and tessalon perles saturated well on RA Clinically improves significantly Supratherapeutic INR Patient complained of blood in her sputum/via nose/in her tears that resolved INR on admission 9.6 on admission received IV vit K on admission Pt was placed on IV heparin since INR was subtherapeutic IV heparin drip was discontinued once INR 2.9 ( on 02/21) INR 6.4 today No Coumadin was given yesterday and will hold today dose Pt is very anxious and she does not want to stay for tonight She agreed to check the INR tomorrow morning There is no sign of active bleeding Case discussed with the [facility] pharmacist Kirby about to check INR tomorrow Kirby agreed to follow up the INR result and will notify patient about the result and instruction with coumadin Pt will get the INR check tomorrow at [facility] lab in the morning Pt understood to seek urgent medical attention if she develops any bleeding Pt was advised to hold coumadin dose tonight and the [facility] will contact her tomorrow with instructions H/O mitral valve replacement with mechanical valve: H/o embolic ND and TIA received IV vit K due to INR 9.6 INR 6.4 today Continue to hold Coumadin since INR 6.4 (goal btw 3 to 3.5 ) Check INR tomorrow at the [facility] Continue monitor PT/INR Left heel pain: Pt said that she did alot of walk during the cruise Left foot x-ray with no fracture or dislocation but suggestive of mild Achilles tendinosis. Better support/padding at left heel. Doppler of LE showed no evidence of PE Continue tylenol prn On lidocaine patch Afib Rate continue metoprolol Discontinued IV heparin drip Coumadin on hold, INR 6.4 Follow up PT/INR Hyponatremia: Likely Chronic with baseline na btw 130 to 133 Pt said that she has not been able to eat Sodium 134 today Case discussed with nephrology ( No official consult placed) that recommended to hold spironolactone Continue monitor BMP Hypokalemia Potassium 2.2 on admission K 3.2 today Potassium replaced Check BMP in 1 week CKD III Cr baseline 1.4-1.6 Creatinine 1.4 today Continue Lasix and spironolactone Monitor renal function Chronic diastolic CHF Continue lasix and Aldactone No sign of volume overload Continue monitor closely Anemia Hgb 9.3 today Continue monitor BOBBY on Celexa DM II Most recent hemoglobin A1c 6.6 Continue SSI GERD on PPI DVT Px Coumadin on hold since INR 6.4 Code Status Full Code Disposition Discharge home today Check INR tomorrow at the [facility] lab Total Time Total Time Spent Total Time Spent (In Minutes): 35 minutes Discharge Plan Discharge Items Patient Disposition: Home - Home Health Services Reason For Visit: PRODUCTIVE COUGH, SICK Discharge Diagnosis: Cough/Bronchitis Supratherapeutic INR H/O mitral valve replacement with mechanical valve: Left heel pain: Atrial fibrillation Hyponatremia: Hypokalemia Chronic Kidney disease stage 3 Chronic diastolic CHF Diabetes Activity: Resume your previous activity Non-emergency contact: Primary Care Provider and [employer] Call non-emergency contact if: you have any medication questions Follow-up/Referrals: John Blanco MD [Primary Care Provider] - (Date & Time 02/28/2022 3:00 PM Provider John Blanco MD [facility] ) Diet: Carb Consistent or DM2 Addtl Attending Provider Instructions: Follow up with your primary care provider 02/28/2022 @3:00 PM John Blanco MD Department [facility] Follow with the coumadin clinic to monitor your PT/INR Check Your PT/INR at the [facility] tomorrow morning Please Hold coumadin until the coumadin clinic calls you tomorrow for dose recommendation Seek urgent medical attention if you develop any abnormal bleeding Check your BMP in 1 week to monitor your electrolyes Seek medical attention if you develop any shortness of breath Once again No coumadin for tonight Pending Studies at Discharge: No Stand-Alone Forms: My [facility] [employer], Smoking Cessation Medications and DC Order Prescriptions: New benzonatate 100 mg Capsule 100 mg PO Q8H PRN (Reason: cough) Qty: 20 0RF prednisone 10 mg tablet 10 mg PO DAILY Qty: 2 0RF guaifenesin 200 mg tablet 200 mg PO TID PRN (Reason: cough) Qty: 20 0RF Continued ipratropium-albuterol 0.5 mg-3 mg(2.5 mg base)/3 mL solution for nebulization 3 ml INHALATION QID PRN (Reason: shortness of breath or wheezing) Qty: 1080 3RF (DME) Incentive Spirometer Misc See Rx Instructions .MEDSUPPLY Qty: 1 0RF Rx Instructions: As directed levothyroxine 100 mcg tablet 100 mcg PO DAILYBB folic acid 1 mg Tablet 1 mg PO QAM Qty: 30 0RF ropinirole 2 mg tablet 2 mg PO DAILY spironolactone 25 mg Tablet 12.5 mg PO QAM magnesium hydroxide [Milk of Magnesia] 400 mg/5 mL Suspension 5 ml PO DAILY PRN (Reason: Constipation) nitroglycerin [Nitrostat] 0.4 mg Tablet, Sublingual 0.4 mg Sublingual DIRECTED PRN (Reason: Chest Pain) omeprazole 20 mg Capsule,Delayed Release(Dr/Ec) 20 mg PO PM cholecalciferol (vitamin D3) [Vitamin D3] 1,000 unit Capsule 1,000 unit PO QAM citalopram 10 mg tablet 10 mg PO DAILY warfarin 5 mg Tablet 5 mg PO DIRECTED Rx Instructions: TAKES 2.5 MG ON MONDAYS ONLY, THEN 5 MG ALL OTHER DAYS. tramadol 50 mg tablet 50 mg PO TID PRN (Reason: Pain) bisacodyl 10 mg Suppository 10 mg OK DAILY PRN (Reason: as directed) sennosides 17.2 mg Tablet 17.2 mg PO HS PRN (Reason: Constipation) Combivent Respimat 20-100 mcg/actuation mist 1 puff INHALATION QID PRN (Reason: Shortness Of Breath) rosuvastatin 20 mg tablet 20 mg PO HS azelastine 137 mcg (0.1 %) aerosol,spray 2 spray INTRANASAL [facility] albuterol sulfate 90 mcg/actuation HFA aerosol inhaler 2 puff INHALATION Q4 PRN (Reason: cough,sob,wheeze) Rx Instructions: may use for chest tightness metoprolol tartrate 25 mg Tablet 25 mg PO BID Qty: 30 2RF furosemide 40 mg tablet 80 mg PO [id number] Rx Instructions: TAKES SUN, TUES, THURS & SAT. furosemide 40 mg tablet 40 mg PO [id number] Rx Instructions: TAKES MON, WED, & FRI. Magnesium Glycinate 665 665 mg PO DAILY valacyclovir 1 gram tablet 2 mg PO AMPM PRN (Reason: Cold Sores) Discharge Orders: Discharge Order (Routine); Ordered 02/23/22 Ordered By: Monica Aranda/Other Patient Handouts: Managing Type 2 Diabetes Admission Data Admit Date/Time: 02/18/22 20:09 Attending Provider: Monica Franklin Admit Provider: Jose Angel Lara Primary Care Provider: John Blanco Other Providers: Jose Angel Lara ; Tyron [facility]
[2022-02-26] MEDS ORDERED: WARFARIN SOD 2.5 MG TAB PO SCH (16:00)
== END 2022-02-23 15:28 | disposition home health service (06) | DRG 202 ==
LOC: ED 17:22 → EDINP 20:09 → SUATTDRO 20:09 → 1E 22:36 → 2S 02-21 03:01

== ENCOUNTER 2023-07-09 16:31 | Inpatient (IN) ==
[2023-07-09 17:19] LABS: Basophils # (auto) 0.04 K/uL (0.00-0.20); Basophils % (auto) 0.5 %; Eosinophils # (auto) 0.19 K/uL (0.00-0.50); Eosinophils % (auto) 2.3 %; Hematocrit (blood only) 36.5 % (37.0-47.0); Hemoglobin 11.9 g/dl (12.0-16.0); Immature Granulocytes # (auto) 0.02 K/uL (0.01-0.20); Immature Granulocytes % (auto) 0.2 %; Lymphocytes # (auto) 1.04 K/uL (1.20-3.40); Lymphocytes % (auto) 12.8 %; Mean Corpuscular Hemoglobin 28.7 pg (25.0-34.0); Mean Corpuscular Hgb Conc 32.6 g/dL (32.0-36.0); Mean Platelet Volume 11.5 fL (9.4-12.4); Monocytes # (auto) 0.62 K/uL (0.11-0.59); Monocytes % (auto) 7.7 %; Neutrophils # (auto) 6.19 K/uL (1.40-6.50); Neutrophils % (auto) 76.5 %; Platelet Count 118 K/uL (130-400); RDW Coefficient of Variation 15.4 % (11.5-14.5); RDW Standard Deviation 49.3 fL (36.4-46.3); Red Blood Count 4.15 M/uL (4.20-5.40)
[2023-07-09 17:25] LABS: Alanine Aminotransferase 14 U/L (7-52); Albumin Globulin Ratio 1.3 (0.9-2); Albumin Level 4.3 gm/dl (3.4-5.0); Alkaline Phosphatase 78 U/L (34-104); Anion Gap 6 (3-11); Aspartate Aminotransferase 29 U/L (13-39); BUN Creatinine Ratio 17.9 (10-20); Bilirubin,Total 0.9 mg/dl (0.2-1.0); Blood Urea Nitrogen 32 mg/dl (6-23); Calcium 9.9 mg/dl (8.6-10.3); Carbon Dioxide 30 mmol/L (21-32); Chloride 98 mmol/L (98-107); Est GFR (African American) 32.9 ml/min; Est GFR (Non-African American) 28.4 ml/min; Globulin 3.4 gm/dl (2.5-4.0); Glucose 90 mg/dl (70-99(Fasting)); Potassium 4.2 mmol/L (3.5-5.1); Sodium 134 mmol/L (136-145); Total Protein 7.7 gm/dl (6.0-8.3)
[2023-07-09 17:31] LABS: Troponin I High Sensitivity 8.3 pg/ml (0-14)
--- NOTE | 2023-07-09 18:05 | XRay Report ---
XR chest 1V not portable CLINICAL HISTORY: chf TECHNIQUE: Single frontal radiograph of the chest was obtained. Comparison: Comparison is made to chest radiograph 03/09/2022 FINDINGS: Median sternotomy and cardiac valvular prosthesis and loop recorder are unchanged. Aortic valvular pr osthesis is seen. Prominence and cephalization of the vasculature is seen. No evidence of pleural eff usion or pneumothorax. IMPRESSION: Cardiomegaly and mild pulmonary edema. ACT 112: Negative or not required by law. Electronically signed by: Adolfo Batres M.D. 07/09/2023 6:04 PM
--- NOTE | 2023-07-09 21:03 | Emergency Department Note ---
Impression & Plan Acute exacerbation of CHF (congestive heart failure), Acute kidney injury superimposed on chronic kidney disease ED Provider Note HISTORY OF PRESENT ILLNESS: Patient is a 67-year-old female presenting with shortness of breath and weight gain. Patient reports she has gained 7 pounds in the last week. She states that she did a home walk test today to see about getting home oxygen and her saturations dipped to 82%. She wears 2 L nasal cannula at nighttime only. Reports feeling slightly short of breath over the last few days. She denies any chest pain. She is on multiple diuretics at home, including torsemide and spironolactone. Reports that she called Dr. Molina's cardiology office today and was recommended to present to the emergency department for further evaluation. Patient does have a history of an aortic valve replacement and is on Coumadin. She does have an isolated history of a pulmonary embolism. ROS: as above PHYSICAL EXAM: Constitutional: Patient appears in no acute distress. HENT: Head: Normocephalic and atraumatic. Eyes: EOMI, PERRL Mouth/Throat: Mucous membranes moist. Neck: Trachea midline. Neck supple. Cardiovascular: Irregular rhythm. No murmurs, rubs or gallops. Intact distal pulses. Pulmonary/Chest: No respiratory distress. Breath sounds clear and equal bilaterally. On 2 L nasal cannula Abdominal: Abdomen soft, no tenderness, rebound or guarding. Musculoskeletal: No tenderness or deformity noted. Trace nonpitting edema of the bilateral lower extremities. Skin: Warm and dry. No rash, erythema, pallor or cyanosis Psychiatric: Appropriate mood and affect for situation. Neurological: Alert and keenly responsive. CN II-XII grossly intact, moving all extremities equally and fully. MDM: - Vitals signs showed hypertension - History obtained via patient. History as above. - Chronic conditions affecting care: diastolic CHF; DM-2; CKD; Afib - Differential diagnoses include, but are not limited to: Congestive heart failure; acute coronary syndrome; COPD/asthma exacerbation; pulmonary edema; pulmonary embolism; pneumonia; pneumothorax; viral syndrome - Order placed for continuous cardiac monitoring. At this time, monitor showed rate of 60 bpm with irregular rhythm, per my interpretation. - External medical records reviewed. Telephone visit note from cardiology [facility] dated for today was reviewed. The [employer] had referred the patient to the emergency department given her weight gain and hypoxia and concern for CHF exacerbation. - EKG interpreted by myself showed atrial fibrillation. Rate 68 bpm. QT 408. No acute ischemic changes. - Laboratory workup interpreted by myself showed normal WBC; hyponatremia (Na 134); VICKY on CKD (Cr 1.79); normal BNP; normal troponin - CXR showed mild pulmonary edema, per my interpretation - Patient given 500 cc NS in ER for hydration for CT scan - CT PE negative for PE - Patient on 2L NC in ER. - Given patient's increasing weight in setting of CHF and multiple diuretic use, will admit to hospitalist - Discussion was had with telephonic nurse case manager about patient's case and need for admission - Hospitalist consulted for admission - Patient admitted to [facility] hospitalist service for further evaluation and management. ASSESSMENT AND PLAN: Diagnosis: acute CHF exacerbation; VICKY on CKD Plan: Admit Past Med/Surg History Problem List (Updated 07/09/23 @ 21:51 by Cee Trevino MD) Acute kidney injury superimposed on chronic kidney disease (Acute) Acute exacerbation of CHF (congestive heart failure) (Acute) Restrictive lung disease CHF (congestive heart failure) (Acute) Cough (Acute) Acute dyspnea (Acute) Acute foot pain (Acute) Supratherapeutic INR (Acute) Exertional shortness of breath Upper airway cough syndrome Chronic cough Occult blood positive stool H/O mitral valve replacement with mechanical valve Rheumatic heart disease Permanent atrial fibrillation History of CVA (cerebrovascular accident) Chronic diastolic CHF (congestive heart failure) Nontraumatic intramuscular hematoma Hematoma of left thigh (Acute) Mechanical heart valve present (Acute) Encounter for pre-operative examination Asthmatic bronchitis Acute bronchitis Pleural effusion Abnormal chest CT Dysphagia Pneumonia Acute on chronic diastolic HF (heart failure) Shortness of breath (Acute) Atypical chest pain (Acute) Hypoxia (Acute) Chronic heart failure with preserved ejection fraction (HFpEF) History of loop recorder Recurrent syncope Syncope (Acute) UTI (urinary tract infection) DVT prophylaxis Hypothyroidism CKD (chronic kidney disease), stage III Recurrent syncope (Acute) Contusion of scalp (Acute) Hypokalemia (Acute) Dehydration (Acute) Substernal chest pain (Acute) Elevated INR (Acute) Status post total right knee replacement Knee pain Tricompartment degenerative joint disease of knee Knee effusion, left (Acute) A-fib (Chronic) Mitral valve replaced (Chronic) Hemangioma (Acute) Syncope (Acute) Closed head injury (Acute) Forehead laceration (Acute) Burn of hand, right (Acute) VICKY (acute kidney injury) (Acute) Pre-syncope Acute renal failure Severe protein-calorie malnutrition Gant classified according to extent of body surface involved Atrial fibrillation Coronary artery disease Mechanical heart valve present History of CVA (cerebrovascular accident) Diabetes type 2, controlled Hypothyroidism DVT prophylaxis Discharge planning issues Hematoma Rheumatic disease of heart valve H/O mitral valve replacement with mechanical valve Leg edema Post-concussion headache Slurred speech (Acute) Numbness (Acute) Encounter for pre-operative examination Degenerative joint disease of left knee Acute blood loss as cause of postoperative anemia DVT prophylaxis S/P TKR (total knee replacement) Pain, joint, knee, left Hemarthrosis involving knee joint Discharge planning issues Anemia chronic; baseline hgb 9-10 range per chart review Medical History A-fib Anemia Anxiety CKD (chronic kidney disease), stage III Diabetes Encounter for pre-operative examination GERD (gastroesophageal reflux disease) History of blood transfusion HTN (hypertension) Hx of myocardial infarction Hyperlipidemia Hypothyroidism Migraines Mitral valve disease Osteoarthritis Restless legs syndrome TIA (transient ischemic attack) Surgical History H/O radioactive iodine thyroid ablation H/O: hysterectomy History of cardiac cath History of colonoscopy History of tonsillectomy and adenoidectomy History of total left knee replacement Hx of appendectomy Hx of cholecystectomy Hx of mitral valve replacement Hx of tubal ligation Family History Uncle , of [place] in his 40s Coronary heart disease Social History Smoking Status: Never smoker Second Hand Exposure: No; Do You Dip or Chew Tobacco: No; Hx Alcohol Use: Yes Alcohol type: wine Hx Substance Use: No Preferred Language: Samoan Communication Ability: Effective Communication Ability Comment: speech impediment, easily understood 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 Beliefs That Will Affect Care: L[employer] Day L[employer] Day Beliefs: Judaism marital status: Single Current Living Situation: Alone Current Living Situation Comment: takes care of mother current occupational status: disabled How many Children do You have: 0 Feels Safe at Home: Yes Assistive Devices: Cane, Hospital Bed, Nebulizer, Walker and Wheelchair Allergies Allergies Allergy/AdvReac Type Severity Reaction Status Date / Time budesonide Allergy Severe could not Verified 07/09/23 20:12 breath hydroxyzine Allergy Severe DYSTONIA Verified 07/09/23 20:12 prochlorperazine Allergy Severe NUCHAL Verified 07/09/23 20:12 DYSTONIA promethazine Allergy Severe NUCHAL Verified 07/09/23 20:12 DYSTONIA enoxaparin [From Lovenox] Allergy Unknown ON Verified 07/09/23 20:12 [facility] Inhibitors AdvReac Intermediate COUGH Verified 07/09/23 20:12 gabapentin AdvReac Intermediate CONFUSION/D Verified 07/09/23 20:12 ROWSY lisinopril AdvReac Intermediate Cough Verified 07/09/23 20:12 metformin AdvReac Intermediate DIARRHEA Verified 07/09/23 20:12 oxycodone AdvReac Intermediate NUMB ALL Verified 07/09/23 20:12 OVER parsley AdvReac Intermediate AGITATION Verified 07/09/23 20:12 tetracycline AdvReac Intermediate NAUSEA/VOMI Verified 07/09/23 20:12 TING steroids Allergy Mild Unknown Uncoded 07/09/23 20:12 NAUSEA MEDICINES Allergy Unknown SEE NOTE Uncoded 07/09/23 20:12 BELOW Home Meds Home Medications Medication Instructions Recorded Confirmed cholecalciferol (vitamin D3) 25 1,000 unit PO Q OTHER DAY 12/05/17 07/09/23 mcg (1,000 unit) capsule (Vitamin D3) nitroglycerin 0.4 mg sublingual 0.4 mg sublingual DIRECTED PRN 12/05/17 07/09/23 tablet (Nitrostat) Chest Pain omeprazole 20 mg capsule,delayed 20 mg PO QAM 12/05/17 07/09/23 release levothyroxine 100 mcg tablet 100 mcg PO DAILYBB 05/18/18 07/09/23 magnesium hydroxide 400 mg/5 mL 5 ml PO DAILY PRN Constipation 12/31/19 07/09/23 oral suspension (Milk of Magnesia) spironolactone 25 mg tablet 12.5 mg PO QAM 12/31/19 07/09/23 rosuvastatin 20 mg tablet 20 mg PO QAM 10/15/20 07/09/23 citalopram 10 mg tablet 10 mg PO DAILY 07/18/21 07/09/23 tramadol 50 mg tablet 50 mg PO BID PRN Pain 07/18/21 07/09/23 azelastine 137 mcg (0.1 %) nasal 2 spray intranasal AMHS 08/02/21 07/09/23 spray aerosol ropinirole 2 mg tablet 2 mg PO TID 09/01/21 07/09/23 Magnesium Glycinate 665 665 mg PO DAILY 11/30/21 07/09/23 valacyclovir 1 gram tablet 2,000 mg PO AMPM PRN Cold Sores 11/30/21 07/09/23 acetaminophen 500 mg tablet 500 mg PO Q6H PRN Pain 07/09/23 07/09/23 (Tylenol Extra Strength) albuterol sulfate 90 mcg/actuation 2 puff inhalation Q4H PRN 07/09/23 07/09/23 aerosol inhaler COUGH/SHORT OF BREATH/WHEEZING benzonatate 100 mg capsule 100 mg PO TID PRN cough 07/09/23 07/09/23 buprenorphine 5 mcg/hour weekly 5 mcg transdermal WK 07/09/23 07/09/23 transdermal patch conjugated estrogens 0.625 mg/gram 0.625 mg vaginal DIRECTED 07/09/23 07/09/23 vaginal cream (Premarin) empagliflozin 10 mg tablet 10 mg PO QAM 07/09/23 07/09/23 (Jardiance) lidocaine HCl 4 % (40 mg/mL) 1 applic mucous membrane 07/09/23 07/09/23 mucosal solution DIRECTED PRN MOUTH ULCERS metoclopramide HCl 10 mg tablet 10 mg PO DAILYBB 07/09/23 07/09/23 (Reglan) nystatin 100,000 unit/mL oral 5 ml mucous membrane QID PRN THRUSH 07/09/23 07/09/23 suspension sucralfate 100 mg/mL oral 10 ml PO QID PRN NEEDED 07/09/23 07/09/23 suspension torsemide 100 mg tablet 50 mg PO QAM 07/09/23 07/09/23 warfarin 2.5 mg tablet 2.5 mg PO DIRECTED 07/09/23 07/09/23 Previous Rx's Medication Instructions Recorded folic acid 1 mg tablet 1 mg PO QAM #30 tabs 05/21/18 metoprolol tartrate 25 mg tablet 25 mg PO BID #30 tabs 08/18/21 Incentive Spirometer #1 ea 09/05/21 ipratropium 0.5 mg-albuterol 3 mg 3 ml inhalation QID PRN shortness 03/25/23 (2.5 mg base)/3 mL nebulization of breath or wheezing #1,080 mL soln ipratropium 20 mcg-albuterol 100 1 puff inhalation QID PRN 03/25/23 mcg/actuation mist for inhalation Shortness Of Breath #12 grams (Combivent Respimat) Oxygen Home #1 ea 04/08/23 Oxygen Home #2 ea 05/03/23 Results & Data (ED) Vital Signs Vital Signs - 24 hr 07/09/23 16:35 07/09/23 20:01 07/09/23 20:04 Temperature 36.8 C Temperature Source Temporal Artery Scan Pulse Rate 72 66 59 L Pulse Rate from SpO2 Sensor 57 L Respiratory Rate 24 19 Respiratory Effort / Characteristics Non-Labored Spontaneous Respiratory Depth Normal Blood Pressure 133/71 129/75 Blood Pressure Mean 91 93 Pulse Oximetry 97 97 Oxygen Delivery Method Room Air Nasal Cannula Oxygen Flow Rate 2 Sepsis Recent Fever Within 48 Hours No Sepsis New/Unexplained Change in Mental Status No Sepsis Action Taken by Nursing No Action Required Laboratory Data 07/09/23 16:55 07/09/23 16:55 Lab Results 07/09/23 Range/Units 16:55 WBC 8.10 (4.8-10.8) K/ul RBC 4.15 L (4.20-5.40) M/uL Hgb 11.9 L (12.0-16.0) g/dl Hct 36.5 L (37.0-47.0) % MCV 88.0 (80.0-100.0) fL MCH 28.7 (25.0-34.0) pg MCHC 32.6 (32.0-36.0) g/dL RDW Std Deviation 49.3 H (36.4-46.3) fL RDW Coeff of Courtney 15.4 H (11.5-14.5) % Plt Count 118 L (130-400) K/uL MPV 11.5 (9.4-12.4) fL Immature Gran % (Auto) 0.2 % Neut % (Auto) 76.5 % Lymph % (Auto) 12.8 % [place] % (Auto) 7.7 % Eos % (Auto) 2.3 % Baso % (Auto) 0.5 % Neut # (Auto) 6.19 (1.40-6.50) K/uL Lymph # (Auto) 1.04 L (1.20-3.40) K/uL [place] # (Auto) 0.62 H (0.11-0.59) K/uL Eos # (Auto) 0.19 (0.00-0.50) K/uL Baso # (Auto) 0.04 (0.00-0.20) K/uL Immature Gran # (Auto) 0.02 (0.01-0.20) K/uL Sodium 134 L (136-145) mmol/L Potassium 4.2 (3.5-5.1) mmol/L Chloride 98 (98-107) mmol/L Carbon Dioxide 30 (21-32) mmol/L Anion Gap 6 (3-11) BUN 32 H (6-23) mg/dl Creatinine 1.79 H (0.6-1.2) mg/dl Est Cr Clr Drug Dosing Not Reportable Est GFR ( Amer) 32.9 ml/min Est GFR (Non-Af Amer) 28.4 ml/min BUN/Creatinine Ratio 17.9 (10-20) Glucose 90 (70-99(Fasting)) mg/dl Calcium 9.9 (8.6-10.3) mg/dl Total Bilirubin 0.9 (0.2-1.0) mg/dl AST 29 (13-39) U/L ALT 14 (7-52) U/L Alkaline Phosphatase 78 (34-104) U/L Troponin I High Sens 8.3 (0-14) pg/ml B-Natriuretic Peptide 88 (0-100) pg/ml Total Protein 7.7 (6.0-8.3) gm/dl Albumin 4.3 (3.4-5.0) gm/dl Globulin 3.4 (2.5-4.0) gm/dl Albumin/Globulin Ratio 1.3 (0.9-2) Administered Medications Discontinued Medications Ioversol (Optiray 320 125ml) 117 ml IV ONCE ONE Stop: 07/09/23 21:11 Last Admin: 07/09/23 21:10 Dose: 117 ml Documented By: CAROLYN Imaging Data Radiologist's Impression: Chest X-Ray 07/09/23 16:38 XR chest 1V not portable CLINICAL HISTORY: chf TECHNIQUE: Single frontal radiograph of the chest was obtained. Comparison: Comparison is made to chest radiograph 03/09/2022 FINDINGS: Median sternotomy and cardiac valvular prosthesis and loop recorder are unchanged. Aortic valvular prosthesis is seen. Prominence and cephalization of the vasculature is seen. No evidence of pleural effusion or pneumothorax. IMPRESSION: Cardiomegaly and mild pulmonary edema. ACT 112: Negative or not required by law. Electronically signed by: Adolfo Batres M.D. 07/09/2023 6:04 PM Chest CTA 07/09/23 17:59 Exam(s): CTA CHEST EXAM: CT Angiography Chest With Intravenous Contrast CLINICAL HISTORY: Reason for exam: PE. TECHNIQUE: Axial computed tomographic angiography images of the chest with intravenous contrast. CTDI is 16.62 mGy and DLP is 419.79 mGy-cm. Automated exposure control was utilized for the study. A dose lowering technique was utilized adhering to the principles of ALARA. MIP reconstructed images were created and reviewed. COMPARISON: No relevant prior studies available. FINDINGS: LUNGS: No focal consolidation, pleural effusion, or pneumothorax. Atelectasis at the lung bases. HEART: Cardiomegaly. Prosthetic mitral valve. VASCULATURE: No acute pulmonary embolism. Atherosclerotic changes of the aorta. THYROID: Within normal limits. MEDIASTINUM + LYMPH NODES: There are no pathologically enlarged mediastinal, hilar, or axillary lymph nodes. SUPERIOR ABDOMEN: Hepatic steatosis. MUSCULOSKELETAL: Degenerative changes. IMPRESSION: No acute pulmonary embolism. Prosthetic mitral valve. Electronically signed by: Macario Daley MD 07/09/23 21:24 PM Discharge Plan Visit Data Chief Complaint: Abnormal Labs/Diagnostic Testing Stated Complaint: ABNORMAL LABS ED Provider: Cee Trevino Discharge Problem: Acute exacerbation of CHF (congestive heart failure), Acute kidney injury superimposed on chronic kidney disease Forms Stand Alone Forms: [employer] Prescriptions Prescriptions: No Action (DME) Oxygen Home Liters Per Minute See Rx Instructions .Route Qty: 1 0RF Rx Instructions: Nocturnal oxygen at 2lpm vial NC/ Stationary concentrator/ LON99 (DME) Oxygen Home Liters Per Minute See Rx Instructions .Route Qty: 2 0RF Rx Instructions: Oxygen himidification and supplies -LON99 (DME) Incentive Spirometer Misc See Rx Instructions .MEDSUPPLY Qty: 1 0RF Rx Instructions: As directed Combivent Respimat 20-100 mcg/actuation mist 1 puff INHALATION QID PRN (Reason: Shortness Of Breath) Qty: 12 1RF ipratropium-albuterol 0.5 mg-3 mg(2.5 mg base)/3 mL solution for nebulization 3 ml INHALATION QID PRN (Reason: shortness of breath or wheezing) Qty: 1080 2RF levothyroxine 100 mcg tablet 100 mcg PO DAILYBB folic acid 1 mg Tablet 1 mg PO QAM Qty: 30 0RF ropinirole 2 mg tablet 2 mg PO TID spironolactone 25 mg Tablet 12.5 mg PO QAM magnesium hydroxide [Milk of Magnesia] 400 mg/5 mL Suspension 5 ml PO DAILY PRN (Reason: Constipation) nitroglycerin [Nitrostat] 0.4 mg Tablet, Sublingual 0.4 mg Sublingual DIRECTED PRN (Reason: Chest Pain) omeprazole 20 mg Capsule,Delayed Release(Dr/Ec) 20 mg PO QAM cholecalciferol (vitamin D3) [Vitamin D3] 1,000 unit Capsule 1,000 unit PO Q OTHER DAY citalopram 10 mg tablet 10 mg PO DAILY tramadol 50 mg tablet 50 mg PO BID PRN (Reason: Pain) rosuvastatin 20 mg tablet 20 mg PO QAM azelastine 137 mcg (0.1 %) aerosol,spray 2 spray INTRANASAL AMHS metoprolol tartrate 25 mg Tablet 25 mg PO BID Qty: 30 2RF Magnesium Glycinate 665 665 mg PO DAILY valacyclovir 1 gram tablet 2,000 mg PO AMPM PRN (Reason: Cold Sores) nystatin 100,000 unit/mL suspension 5 ml mucous membrane QID PRN (Reason: THRUSH) sucralfate 100 mg/mL suspension 10 ml PO QID PRN (Reason: NEEDED) warfarin 2.5 mg tablet 2.5 mg PO DIRECTED acetaminophen [Tylenol Extra Strength] 500 mg Tablet 500 mg PO Q6H PRN (Reason: Pain) torsemide 100 mg tablet 50 mg PO QAM lidocaine HCl 4 % (40 mg/mL) solution 1 applic mucous membrane DIRECTED PRN (Reason: MOUTH ULCERS) Premarin 0.625 mg/gram cream 0.625 mg vaginal DIRECTED albuterol sulfate 90 mcg/actuation HFA aerosol inhaler 2 puff INHALATION Q4H PRN (Reason: COUGH/SHORT OF BREATH/WHEEZING) metoclopramide HCl [Reglan] 10 mg Tablet 10 mg PO DAILYBB Rx Instructions: administer 30 minutes before meals buprenorphine 5 mcg/hour patch weekly 5 mcg transdermal WK Jardiance 10 mg Tablet 10 mg PO QAM benzonatate 100 mg capsule 100 mg PO TID PRN (Reason: cough) Referrals Referrals: Hadley Molina MD [Primary Care Provider] -
[2023-07-09] MEDS: OPTIRAY 320 125ml IV ONE (21:10)
--- NOTE | 2023-07-09 21:25 | CT Scan Report ---
Exam(s): CTA CHEST EXAM: CT Angiography Chest With Intravenous Contrast CLINICAL HISTORY: Reason for exam: PE. TECHNIQUE: Axial computed tomographic angiography images of the chest with intravenous contrast. CTDI is 16.62 mGy and DLP is 419.79 mGy-cm. Automated exposure control was utilized for the study. A dose lowering technique was utilized adhering to the principles of ALARA. MIP reconstructed images were created and reviewed. COMPARISON: No relevant prior studies available. FINDINGS: LUNGS: No focal consolidation, pleural effusion, or pneumothorax. Atelectasis at the lung bases. HEART: Cardiomegaly. Prosthetic mitral valve. VASCULATURE: No acute pulmonary embolism. Atherosclerotic changes of the aorta. THYROID: Within normal limits. MEDIASTINUM + LYMPH NODES: There are no pathologically enlarged mediastinal, hilar, or axillary lymph nodes. SUPERIOR ABDOMEN: Hepatic steatosis. MUSCULOSKELETAL: Degenerative changes. IMPRESSION: No acute pulmonary embolism. Prosthetic mitral valve. Electronically signed by: Macario Daley MD 07/09/23 21:24 PM
[2023-07-09 22:06] LABS: INR 3.2 (0.9-1.1); Prothrombin Time 31.1 Seconds (9.0-12.0)
[2023-07-09 22:10] LABS: Magnesium 2.7 mg/dl (1.7-2.4)
[2023-07-09] MEDS: SODIUM CHLORIDE 0.9% 500 ML IV ONE (22:10)
[2023-07-09 22:27] LABS: Appearance Urine Clear (Clear); Bacteria Urine Automated 4+ (None Seen); Bilirubin Urine Negative (Negative); Blood Urine Negative (Negative); Cast Urine Automated 0-2 /lpf (0-2); Color Urine Yellow; Epithelial Cell Urine Auto 0-2 /hpf (0-2); Glucose Urine UA Trace (Negative); Ketones Urine Negative (Negative); Leukocyte Esterase Urine 3+ (Negative); Nitrite Urine Negative (Negative); Protein Urine Negative (Negative); RBC Urine Automated 0-2 /hpf (0-2); Specific Gravity Urine 1.014 (1.000-1.030); Urobilinogen Urine Negative (Negative); WBC Urine Automated >50 /hpf (0-5)
[2023-07-09] MEDS: FUROSEMIDE 40 MG/4 ML VIAL IV ONE (22:33)
[2023-07-09] MEDS: ALBUMIN 25% 25 GM/100 ML VIAL IV ONE (23:16)
--- NOTE | 2023-07-09 23:58 | History & Physical Report ---
Date of Service July 09, 2023 Assessment & Plan (1) Acute exacerbation of CHF (congestive heart failure): Plan: History diastolic dysfunction SSS/rheumatic heart disease/history of mechanical MVR on Coumadin, INR therapeutic history of Linq insertion hx CAD as per records hypertension, stable hyperlipidemia, on statin Rx hx embolic CVA as per records COPD, not in acute exacerbation DM2 diet-controlled, reasonable control as of recent hemoglobin A1c of 7.3, April 2023 CRI, creatinine at baseline Hypothyroidism, euthyroid as of recent outpatient TSH chronic anemia, hemoglobin at baseline PCU Lasix albumin 1 dose now Strict I/O's, daily weights, CHF education, fluid restriction Cardiology consult Re: CHF Defer diuretic dosing to cardiology Basal bolus insulin, ISS BG goal 1 10-1 40, carb count coverage DVT prophylaxis. Coumadin INR goal between 2.5-3.5 Full code Text document was generated using [employer]jack voice recognition software. It may contain grammatical or spelling errors. Kindly contact undersigned for clarification of any documentation item in question. History of Present Illness Chief Complaint: Shortness of breath, weight gain Primary Care Provider: Dr. Ray History obtained from patient and records. Medical history significant for chronic diastolic heart failure (EF 60%, TTE 2023), SSS/rheumatic heart disease/history of mechanical MVR on Coumadin, history of Linq insertion, CAD as per records, hypertension, hyperlipidemia, history embolic CVA as per records, COPD, DM2 diet-controlled, CRI (baseline creatinine 1.6-2 as per records), chronic anemia (baseline hemoglobin 10-11), RLS, chronic pain on Suboxone Last confinement February 2022 for bronchitis symptoms and supratherapeutic INR Patient seen at [facility] cardiology office 2 weeks ago on follow-up visit. Worsening symptoms of right heart failure with increased abdominal girth and lower extremity edema as per note. Patient prescribed metolazone every week for fluid management. Initial improvement in fluid retention symptoms. Few days ago, patient noted shortness of breath worse on exertion. No chest pain. 7 pound weight gain in the last week as per caregiver note. Patient hypoxemic, O2 sats 80s on ambulation at home. Patient compliant with home medications and fluid restriction. Patient directed to ER for evaluation. 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 Allergies Allergy/AdvReac Type Severity Reaction Status Date / Time budesonide Allergy Severe could not Verified 07/09/23 20:12 breath hydroxyzine Allergy Severe DYSTONIA Verified 07/09/23 20:12 prochlorperazine Allergy Severe NUCHAL Verified 07/09/23 20:12 DYSTONIA promethazine Allergy Severe NUCHAL Verified 07/09/23 20:12 DYSTONIA enoxaparin [From Lovenox] Allergy Unknown ON Verified 07/09/23 20:12 [facility] Inhibitors AdvReac Intermediate COUGH Verified 07/09/23 20:12 gabapentin AdvReac Intermediate CONFUSION/D Verified 07/09/23 20:12 ROWSY lisinopril AdvReac Intermediate Cough Verified 07/09/23 20:12 metformin AdvReac Intermediate DIARRHEA Verified 07/09/23 20:12 oxycodone AdvReac Intermediate NUMB ALL Verified 07/09/23 20:12 OVER parsley AdvReac Intermediate AGITATION Verified 07/09/23 20:12 tetracycline AdvReac Intermediate NAUSEA/VOMI Verified 07/09/23 20:12 TING steroids Allergy Mild Unknown Uncoded 07/09/23 20:12 NAUSEA MEDICINES Allergy Unknown SEE NOTE Uncoded 07/09/23 20:12 BELOW Home Medications Medication Instructions Recorded Confirmed Type cholecalciferol (vitamin D3) 25 1,000 unit PO Q OTHER DAY 12/05/17 07/09/23 History mcg (1,000 unit) capsule (Vitamin D3) nitroglycerin 0.4 mg sublingual 0.4 mg sublingual DIRECTED PRN 12/05/17 07/09/23 History tablet (Nitrostat) Chest Pain omeprazole 20 mg capsule,delayed 20 mg PO QAM 12/05/17 07/09/23 History release levothyroxine 100 mcg tablet 100 mcg PO DAILYBB 05/18/18 07/09/23 History folic acid 1 mg tablet 1 mg PO QAM #30 tabs 05/21/18 07/09/23 Rx magnesium hydroxide 400 mg/5 mL 5 ml PO DAILY PRN Constipation 12/31/19 07/09/23 History oral suspension (Milk of Magnesia) spironolactone 25 mg tablet 12.5 mg PO QAM 12/31/19 07/09/23 History rosuvastatin 20 mg tablet 20 mg PO QAM 10/15/20 07/09/23 History citalopram 10 mg tablet 10 mg PO DAILY 07/18/21 07/09/23 History tramadol 50 mg tablet 50 mg PO BID PRN Pain 07/18/21 07/09/23 History azelastine 137 mcg (0.1 %) nasal 2 spray intranasal AMHS 08/02/21 07/09/23 History spray aerosol metoprolol tartrate 25 mg tablet 25 mg PO BID #30 tabs 08/18/21 07/09/23 Rx ropinirole 2 mg tablet 2 mg PO TID 09/01/21 07/09/23 History Incentive Spirometer #1 ea 09/05/21 03/15/22 Rx Magnesium Glycinate 665 665 mg PO DAILY 11/30/21 07/09/23 History valacyclovir 1 gram tablet 2,000 mg PO AMPM PRN Cold Sores 11/30/21 07/09/23 History ipratropium 0.5 mg-albuterol 3 mg 3 ml inhalation QID PRN shortness 03/25/23 07/09/23 Rx (2.5 mg base)/3 mL nebulization of breath or wheezing #1,080 mL soln ipratropium 20 mcg-albuterol 100 1 puff inhalation QID PRN 03/25/23 07/09/23 Rx mcg/actuation mist for inhalation Shortness Of Breath #12 grams (Combivent Respimat) Oxygen Home #1 ea 04/08/23 Rx Oxygen Home #2 ea 05/03/23 Rx acetaminophen 500 mg tablet 500 mg PO Q6H PRN Pain 07/09/23 07/09/23 History (Tylenol Extra Strength) albuterol sulfate 90 mcg/actuation 2 puff inhalation Q4H PRN 07/09/23 07/09/23 History aerosol inhaler COUGH/SHORT OF BREATH/WHEEZING benzonatate 100 mg capsule 100 mg PO TID PRN cough 07/09/23 07/09/23 History buprenorphine 5 mcg/hour weekly 5 mcg transdermal WK 07/09/23 07/09/23 History transdermal patch conjugated estrogens 0.625 mg/gram 0.625 mg vaginal DIRECTED 07/09/2307/08 History vaginal cream (Premarin) empagliflozin 10 mg tablet 10 mg PO QAM 07/09/23 07/09/23 History (Jardiance) lidocaine HCl 4 % (40 mg/mL) 1 applic mucous membrane 07/09/23 07/09/23 History mucosal solution DIRECTED PRN MOUTH ULCERS metoclopramide HCl 10 mg tablet 10 mg PO DAILYBB 07/09/23 07/09/23 History (Reglan) nystatin 100,000 unit/mL oral 5 ml mucous membrane QID PRN THRUSH 07/09/23 07/09/23 History suspension sucralfate 100 mg/mL oral 10 ml PO QID PRN NEEDED 07/09/23 07/09/23 History suspension torsemide 100 mg tablet 50 mg PO QAM 07/09/23 07/09/23 History warfarin 2.5 mg tablet 2.5 mg PO DIRECTED 07/09/23 07/09/23 History Past Med/Surg History Problem List (Updated 07/09/23 @ 21:51 by Cee Trevino MD) Acute kidney injury superimposed on chronic kidney disease (Acute) Acute exacerbation of CHF (congestive heart failure) (Acute) Restrictive lung disease CHF (congestive heart failure) (Acute) Cough (Acute) Acute dyspnea (Acute) Acute foot pain (Acute) Supratherapeutic INR (Acute) Exertional shortness of breath Upper airway cough syndrome Chronic cough Occult blood positive stool H/O mitral valve replacement with mechanical valve Rheumatic heart disease Permanent atrial fibrillation History of CVA (cerebrovascular accident) Chronic diastolic CHF (congestive heart failure) Nontraumatic intramuscular hematoma Hematoma of left thigh (Acute) Mechanical heart valve present (Acute) Encounter for pre-operative examination Asthmatic bronchitis Acute bronchitis Pleural effusion Abnormal chest CT Dysphagia Pneumonia Acute on chronic diastolic HF (heart failure) Shortness of breath (Acute) Atypical chest pain (Acute) Hypoxia (Acute) Chronic heart failure with preserved ejection fraction (HFpEF) History of loop recorder Recurrent syncope Syncope (Acute) UTI (urinary tract infection) DVT prophylaxis Hypothyroidism CKD (chronic kidney disease), stage III Recurrent syncope (Acute) Contusion of scalp (Acute) Hypokalemia (Acute) Dehydration (Acute) Substernal chest pain (Acute) Elevated INR (Acute) Status post total right knee replacement Knee pain Tricompartment degenerative joint disease of knee Knee effusion, left (Acute) A-fib (Chronic) Mitral valve replaced (Chronic) Hemangioma (Acute) Syncope (Acute) Closed head injury (Acute) Forehead laceration (Acute) Burn of hand, right (Acute) VICKY (acute kidney injury) (Acute) Pre-syncope Acute renal failure Severe protein-calorie malnutrition Gant classified according to extent of body surface involved Atrial fibrillation Coronary artery disease Mechanical heart valve present History of CVA (cerebrovascular accident) Diabetes type 2, controlled Hypothyroidism DVT prophylaxis Discharge planning issues Hematoma Rheumatic disease of heart valve H/O mitral valve replacement with mechanical valve Leg edema Post-concussion headache Slurred speech (Acute) Numbness (Acute) Encounter for pre-operative examination Degenerative joint disease of left knee Acute blood loss as cause of postoperative anemia DVT prophylaxis S/P TKR (total knee replacement) Pain, joint, knee, left Hemarthrosis involving knee joint Discharge planning issues Anemia chronic; baseline hgb 9-10 range per chart review Medical History A-fib Anemia Anxiety CKD (chronic kidney disease), stage III Diabetes Encounter for pre-operative examination GERD (gastroesophageal reflux disease) History of blood transfusion HTN (hypertension) Hx of myocardial infarction Hyperlipidemia Hypothyroidism Migraines Mitral valve disease Osteoarthritis Restless legs syndrome TIA (transient ischemic attack) Surgical History H/O radioactive iodine thyroid ablation H/O: hysterectomy History of cardiac cath History of colonoscopy History of tonsillectomy and adenoidectomy History of total left knee replacement Hx of appendectomy Hx of cholecystectomy Hx of mitral valve replacement Hx of tubal ligation Family History Uncle , of [place] in his 40s Coronary heart disease Social History Smoking Status: Never smoker Second Hand Exposure: No; Do You Dip or Chew Tobacco: No; Hx Alcohol Use: Yes Alcohol type: wine Hx Substance Use: No Preferred Language: Occitan Communication Ability: Effective Communication Ability Comment: speech impediment, easily understood Machinist Required: No Beliefs That Will Affect Care: None marital status: Single Current Living Situation: Alone Current Living Situation Comment: takes care of mother current occupational status: disabled How many Children do You have: 0 Other Information That Helps Us Care for You: No Feels Safe at Home: Yes Safety Concerns: Feels Safe At This Time Assistive Devices: Cane, Hospital Bed, Nebulizer, Oxygen - at Night and Walker Review of Systems Review of Systems: As per HPI, all other systems reviewed and negative Physical Exam Physical Exam: GENERAL: Comfortable, pleasant, no respiratory distress SKIN: Normal color, warm HEENT: [place] palpebral conjunctivae, no ptosis, dry buccal mucosa NECK : Supple, no tenderness CHEST : CTA, no tenderness HEART : Irregular, mechanical murmur murmur ABDOMEN: Some distention, nontender EXTREMITIES : bilateral LE swelling, no LE tenderness, no other conspicuous deformities noted NEUROLOGIC : Coherent, no facial asymmetry, mild dysarthria (chronic as per patient ), no other gross focality Results & Data Results & Data Vital Signs (Past 12 Hours) Vital Signs Temp Pulse Resp BP Pulse Ox O2 Del Method O2 Flow Rate 07/09/23 22:00 55 L 14 129/62 97 Nasal Cannula 2 07/09/23 21:52 67 18 129/70 96 Nasal Cannula 2 07/09/23 20:04 59 L 07/09/23 20:01 66 19 129/75 97 Nasal Cannula 2 07/09/23 16:35 36.8 C 72 24 133/71 97 Room Air Laboratory Results Laboratory Results WBC 8.10 K/ul (4.8-10.8) 07/09/23 16:55 RBC 4.15 M/uL (4.20-5.40) L 07/09/23 16:55 Hgb 11.9 g/dl (12.0-16.0) L 07/09/23 16:55 Hct 36.5 % (37.0-47.0) L 07/09/23 16:55 MCV 88.0 fL (80.0-100.0) 07/09/23 16:55 MCH 28.7 pg (25.0-34.0) 07/09/23 16:55 MCHC 32.6 g/dL (32.0-36.0) 07/09/23 16:55 RDW Std Deviation 49.3 fL (36.4-46.3) H 07/09/23 16:55 RDW Coeff of Courtney 15.4 % (11.5-14.5) H 07/09/23 16:55 Plt Count 118 K/uL (130-400) L 07/09/23 16:55 MPV 11.5 fL (9.4-12.4) 07/09/23 16:55 Immature Gran % (Auto) 0.2 % 07/09/23 16:55 Neut % (Auto) 76.5 % 07/09/23 16:55 Lymph % (Auto) 12.8 % 07/09/23 16:55 [place] % (Auto) 7.7 % 07/09/23 16:55 Eos % (Auto) 2.3 % 07/09/23 16:55 Baso % (Auto) 0.5 % 07/09/23 16:55 Neut # (Auto) 6.19 K/uL (1.40-6.50) 07/09/23 16:55 Lymph # (Auto) 1.04 K/uL (1.20-3.40) L 07/09/23 16:55 [place] # (Auto) 0.62 K/uL (0.11-0.59) H 07/09/23 16:55 Eos # (Auto) 0.19 K/uL (0.00-0.50) 07/09/23 16:55 Baso # (Auto) 0.04 K/uL (0.00-0.20) 07/09/23 16:55 Immature Gran # (Auto) 0.02 K/uL (0.01-0.20) 07/09/23 16:55 PT 31.1 Seconds (9.0-12.0) H 07/09/23 16:55 INR 3.2 (0.9-1.1) H 07/09/23 16:55 Sodium 134 mmol/L (136-145) L 07/09/23 16:55 Potassium 4.2 mmol/L (3.5-5.1) 07/09/23 16:55 Chloride 98 mmol/L (98-107) 07/09/23 16:55 Carbon Dioxide 30 mmol/L (21-32) 07/09/23 16:55 Anion Gap 6 (3-11) 07/09/23 16:55 BUN 32 mg/dl (6-23) H 07/09/23 16:55 Creatinine 1.79 mg/dl (0.6-1.2) H 07/09/23 16:55 Est Cr Clr Drug Dosing Not Reportable 07/09/23 16:55 Est GFR ( Amer) 32.9 ml/min 07/09/23 16:55 Est GFR (Non-Af Amer) 28.4 ml/min 07/09/23 16:55 BUN/Creatinine Ratio 17.9 (10-20) 07/09/23 16:55 Glucose 90 mg/dl (70-99(Fasting)) 07/09/23 16:55 Calcium 9.9 mg/dl (8.6-10.3) 07/09/23 16:55 Magnesium 2.7 mg/dl (1.7-2.4) H 07/09/23 16:55 Total Bilirubin 0.9 mg/dl (0.2-1.0) 07/09/23 16:55 AST 29 U/L (13-39) 07/09/23 16:55 ALT 14 U/L (7-52) 07/09/23 16:55 Alkaline Phosphatase 78 U/L (34-104) 07/09/23 16:55 Troponin I High Sens 8.3 pg/ml (0-14) 07/09/23 16:55 B-Natriuretic Peptide 88 pg/ml (0-100) 07/09/23 16:55 Total Protein 7.7 gm/dl (6.0-8.3) 07/09/23 16:55 Albumin 4.3 gm/dl (3.4-5.0) 07/09/23 16:55 Globulin 3.4 gm/dl (2.5-4.0) 07/09/23 16:55 Albumin/Globulin Ratio 1.3 (0.9-2) 07/09/23 16:55 Urine Color Yellow 07/09/23 21:50 Urine Appearance Clear (Clear) 07/09/23 21:50 Urine pH 7.0 (4.5-7.5) 07/09/23 21:50 Ur Specific [place] 1.014 (1.000-1.030) 07/09/23 21:50 Urine Protein Negative (Negative) 07/09/23 21:50 Urine Glucose (UA) Trace (Negative) H 07/09/23 21:50 Urine Ketones Negative (Negative) 05/21/24 21:50 Urine Blood Negative (Negative) 07/09/23 21:50 Urine Nitrite Negative (Negative) 07/09/23 21:50 Urine Bilirubin Negative (Negative) 07/09/23 21:50 Urine Urobilinogen Negative (Negative) 07/09/23 21:50 Ur Leukocyte Esterase 3+ (Negative) H 07/09/23 21:50 Urine WBC (Auto) >50 /hpf (0-5) H 07/09/23 21:50 Urine RBC (Auto) 0-2 /hpf (0-2) 07/09/23 21:50 U Hyaline Cast (Auto) 0-2 /lpf (0-2) 07/09/23 21:50 U Epithel Cells (Auto) 0-2 /hpf (0-2) 07/09/23 21:50 Urine Bacteria (Auto) 4+ (None Seen) H 07/09/23 21:50 Impressions Chest X-Ray 07/09/23 16:38 XR chest 1V not portable CLINICAL HISTORY: chf TECHNIQUE: Single frontal radiograph of the chest was obtained. Comparison: Comparison is made to chest radiograph 03/09/2022 FINDINGS: Median sternotomy and cardiac valvular prosthesis and loop recorder are unchanged. Aortic valvular prosthesis is seen. Prominence and cephalization of the vasculature is seen. No evidence of pleural effusion or pneumothorax. IMPRESSION: Cardiomegaly and mild pulmonary edema. ACT 112: Negative or not required by law. Electronically signed by: Adolfo Batres M.D. 07/09/2023 6:04 PM Chest CTA 07/09/23 17:59 Exam(s): CTA CHEST EXAM: CT Angiography Chest With Intravenous Contrast CLINICAL HISTORY: Reason for exam: PE. TECHNIQUE: Axial computed tomographic angiography images of the chest with intravenous contrast. CTDI is 16.62 mGy and DLP is 419.79 mGy-cm. Automated exposure control was utilized for the study. A dose lowering technique was utilized adhering to the principles of ALARA. MIP reconstructed images were created and reviewed. COMPARISON: No relevant prior studies available. FINDINGS: LUNGS: No focal consolidation, pleural effusion, or pneumothorax. Atelectasis at the lung bases. HEART: Cardiomegaly. Prosthetic mitral valve. VASCULATURE: No acute pulmonary embolism. Atherosclerotic changes of the aorta. THYROID: Within normal limits. MEDIASTINUM + LYMPH NODES: There are no pathologically enlarged mediastinal, hilar, or axillary lymph nodes. SUPERIOR ABDOMEN: Hepatic steatosis. MUSCULOSKELETAL: Degenerative changes. IMPRESSION: No acute pulmonary embolism. Prosthetic mitral valve. Electronically signed by: Macario Daley MD 07/09/23 21:24 PM Diagnostic Findings EKG as per my interpretation : Rate 70, A-fib, LAD, LAFB, T wave flattening inferior leads
[2023-07-10] MEDS ORDERED: ONDANSETRON INJ 2 MG/ML 2 ML VIAL IV PRN (00:05)
[2023-07-10] MEDS ORDERED: ALBUT/IPRATROP 3MG/0.5MG NEB 3 ML VIAL INH PRN (01:25)
[2023-07-10] MEDS ORDERED: NITROGLYCERIN SL 0.4 MG/TAB TAB SL PRN (01:25)
[2023-07-10] MEDS ORDERED: GLUCOSE 10 TAB/TUBE PO PRN (01:25)
[2023-07-10] MEDS ORDERED: SUCRALFATE 1 GM/10 ML UDC PO PRN (01:25)
[2023-07-10] MEDS ORDERED: CARBOHYDRATES FOR HYPOGLYCEMIA PO PRN (01:25)
[2023-07-10] MEDS ORDERED: DEXTROSE 50% 50 ML SYRINGE IV PRN (01:25)
[2023-07-10] MEDS ORDERED: GLUCAGON FOR INJ 1 MG VIAL SQ PRN (01:25)
[2023-07-10] MEDS ORDERED: GLUCOSE 40% GEL 15 GM TUBE PO PRN (01:25)
[2023-07-10] MEDS: ACETAMINOPHEN 325 MG TAB PO STA (02:26)
[2023-07-10] MEDS: WARFARIN SOD 2.5 MG TAB PO STA (02:27)
[2023-07-10] MEDS: rOPINIRole HCL 2 MG TABLET PO STA (02:27)
[2023-07-10] MEDS: INSULIN ASPART PER UNIT CHARGE SC SCH (02:28)
[2023-07-10 05:34] LABS: BUN Creatinine Ratio 17.6 (10-20); Calcium 9.7 mg/dl (8.6-10.3); Creatinine Clr Calc Pharmacy 26.2 ml/min; Est GFR (African American) 33.6 ml/min; Potassium 3.7 mmol/L (3.5-5.1)
[2023-07-10 05:39] LABS: Basophils # (auto) 0.03 K/uL (0.00-0.20); Basophils % (auto) 0.5 %; Eosinophils # (auto) 0.22 K/uL (0.00-0.50); Eosinophils % (auto) 3.9 %; Hematocrit (blood only) 33.5 % (37.0-47.0); Hemoglobin 10.8 g/dl (12.0-16.0); Immature Granulocytes # (auto) 0.02 K/uL (0.01-0.20); Immature Granulocytes % (auto) 0.4 %; Lymphocytes # (auto) 0.96 K/uL (1.20-3.40); Lymphocytes % (auto) 17.1 %; Mean Corpuscular Hemoglobin 28.5 pg (25.0-34.0); Mean Corpuscular Hgb Conc 32.2 g/dL (32.0-36.0); Mean Corpuscular Volume 88.4 fL (80.0-100.0); Mean Platelet Volume 11.5 fL (9.4-12.4); Monocytes # (auto) 0.56 K/uL (0.11-0.59); Neutrophils # (auto) 3.81 K/uL (1.40-6.50); Neutrophils % (auto) 68.1 %; Platelet Count 100 K/uL (130-400); RDW Coefficient of Variation 15.5 % (11.5-14.5); RDW Standard Deviation 49.2 fL (36.4-46.3); Red Blood Count 3.79 M/uL (4.20-5.40)
[2023-07-10 05:45] LABS: INR 3.5 (0.9-1.1); Prothrombin Time 33.6 Seconds (9.0-12.0)
[2023-07-10] MEDS: LEVOTHYROXINE SODIUM 100 MCG TABLET PO SCH (06:43)
[2023-07-10] MEDS: METOCLOPRAMIDE HCL 10 MG TABLET PO SCH (06:45)
--- NOTE | 2023-07-10 08:30 | Cardiology Consultation ---
Date of Consultation July 10, 2023 Assessment & Plan (1) Acute exacerbation of CHF (congestive heart failure): (2) Rheumatic heart disease: (3) H/O mitral valve replacement with mechanical valve: (4) Permanent atrial fibrillation: Plan Plan: -Known chronic diastolic HF. Complicated by CKD. Patient has been compliant with all medications and therapies. -Precipitating factors likely her recent decline in renal function, discontinuation of her Metolazone and also increased free water intake. -Patient received a one time dose of IV Lasix 60mg last evening. will dicuss with Dr. Salcido today with regards to an additional dose today with close monitoring of renal function and electrolytes. goal Serum K > 4.0 and serum Mag > 2.0. -CHF teaching -Appreciate nephrology input on diuretic management and goals. -Continue metoprolol tartrate as per current regimen. -Continue to hold spironolactone. -Obtain echocardiogram today to assess overall structure/function/progression of valvular disease. Known severe TR. -Patient is to be on chronic warfarin therapy with close monitoring of her INR. Currently 3.5, reassess in the am. Case has been discussed with Dr. Salcido. Further recommendations regarding plan of care as per his assessment. I spent a total of 30 minutes on the date of service in preparation, delivery, documentation of the care provided to the patient excluding any time spent in the performance of separately billed services. SOFI Chapa [facility] Card[facility] Supervising Physician Co-Signing Physician Notes I have personally performed a history and physical examination on the patient. I have reviewed the advance practitioner's documentation, and I agree with, and take responsibility for the plan of care. 67-year-old female admitted with acute on chronic heart failure with preserved ejection fraction. Remote mitral valve replacement with mechanical MVR 1993 and chronic rate controlled atrial fibrillation. Appropriately anticoagulated warfarin with INR 3.5, top of the therapeutic range for a mechanical mitral valve replacement. Heart failure exacerbation precipitated by increase in fluid intake (fluid restriction increased from 2 to 3 L) and recent discontinuation of metolazone. Recommend IV diuresis with Lasix 60 mg twice daily. Monitor daily weight, fluid balance, GFR, and electrolytes. Hold Aldactone. Continue rate control strategy with metoprolol tartrate and chronic anticoagulation with warfarin. I spent a total of 30 minutes on the date of service in preparation, delivery, and documentation of the care provided to this patient, excluding any time spent in the performance of separately billed services. History of Present Illness Reason for Consultation: CHF Requesting Physician: Dilma owusu Attending Physician: Willard Goldstein MD History of Present Illness HPI: Patient is a 67 year old female with PMHx as noted below that presented upon recommendation from our cardiology office for complaints of weight gain (7lbs in the past week), and shortness of breath. Patient states that she has been feeling her usual state of health until this past week. She had been seen by Dr. Molina on 06/21/23 in which she had complained of some fluid build-up and "feeling full" at that time as per review of office note. Patient had been prescribed a one time dose of Metolazone which she responded well to and was then planed on metolazone 2.5mg every 7-10 days with a weekly BMP. On 07/05/23, patient was notified that her renal function had declined and so the metolazone was stopped. 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 Unable to view a note from this visit. Patient is resting comfortably in bed at time of exam. Currently on supplemental O2 2LPM. Denies chest pain, pressure, palpitations, shortness of breath or PND. endorses mild lower extremity edema. PMHx Rheumatic valvular heart disease, status post mitral valve replacement with a mechanical Roe-Medtronic prosthesis in 1993. 2. Chronic atrial fibrillation with tachy Chris syndrome 3. Past embolic myocardial infarction and TIA, on chronic anticoagulation 4. Type 2 diabetes mellitus. 5. Hyperlipidemia. 6. Chronic renal insufficiency. 7. Status post LINQ insertion, March 31, 2021 8. Chronic heart failure with preserved ejection fraction 9. Chronic iron deficiency anemia on infusion therapy UA Positive Troponin negative x1 BNP 88 EKG on admission Atrial fibrillation, left anterior fascicular block, non- specific ST-T wave abnormality, cited on previous study Chest xray suggestive of the following: IMPRESSION: Cardiomegaly and mild pulmonary edema. CT chest negative for PE Allergies Allergy/AdvReac Type Severity Reaction Status Date / Time budesonide Allergy Severe could not Verified 07/09/23 20:12 breath hydroxyzine Allergy Severe DYSTONIA Verified 07/09/23 20:12 prochlorperazine Allergy Severe NUCHAL Verified 07/09/23 20:12 DYSTONIA promethazine Allergy Severe NUCHAL Verified 07/09/23 20:12 DYSTONIA enoxaparin [From Lovenox] Allergy Unknown ON Verified 07/09/23 20:12 Security Scorecard LIST PERRY Inhibitors AdvReac Intermediate COUGH Verified 07/09/23 20:12 gabapentin AdvReac Intermediate CONFUSION/D Verified 07/09/23 20:12 ROWSY lisinopril AdvReac Intermediate Cough Verified 07/09/23 20:12 metformin AdvReac Intermediate DIARRHEA Verified 07/09/23 20:12 oxycodone AdvReac Intermediate NUMB ALL Verified 07/09/23 20:12 OVER parsley AdvReac Intermediate AGITATION Verified 07/09/23 20:12 tetracycline AdvReac Intermediate NAUSEA/VOMI Verified 07/09/23 20:12 TING steroids Allergy Mild Unknown Uncoded 07/09/23 20:12 NAUSEA MEDICINES Allergy Unknown SEE NOTE Uncoded 07/09/23 20:12 BELOW Home Medications Medication Instructions Recorded Confirmed Type cholecalciferol (vitamin D3) 25 1,000 unit PO Q OTHER DAY 12/05/17 07/09/23 Hi story mcg (1,000 unit) capsule (Vitamin D3) nitroglycerin 0.4 mg sublingual 0.4 mg sublingual DIRECTED PRN 12/05/17 07/09/23 History tablet (Nitrostat) Chest Pain omeprazole 20 mg capsule,delayed 20 mg PO QAM 12/05/17 07/09/23 History release levothyroxine 100 mcg tablet 100 mcg PO DAILYBB 05/18/18 07/09/23 History folic acid 1 mg tablet 1 mg PO QAM #30 tabs 05/21/18 07/09/23 Rx magnesium hydroxide 400 mg/5 mL 5 ml PO DAILY PRN Constipation 12/31/19 07/09/23 History oral suspension (Milk of Magnesia) spironolactone 25 mg tablet 12.5 mg PO QAM 12/31/19 07/09/23 History rosuvastatin 20 mg tablet 20 mg PO QAM 10/15/20 07/09/23 History citalopram 10 mg tablet 10 mg PO DAILY 07/18/21 07/09/23 History tramadol 50 mg tablet 50 mg PO BID PRN Pain 07/18/21 07/09/23 History azelastine 137 mcg (0.1 %) nasal 2 spray intranasal AMHS 08/02/21 07/09/23 History spray aerosol metoprolol tartrate 25 mg tablet 25 mg PO BID #30 tabs 08/18/21 07/09/23 Rx ropinirole 2 mg tablet 2 mg PO TID 09/01/21 07/09/23 History Incentive Spirometer #1 ea 09/05/21 03/15/22 Rx Magnesium Glycinate 665 665 mg PO DAILY 11/30/21 07/09/23 History valacyclovir 1 gram tablet 2,000 mg PO AMPM PRN Cold Sores 11/30/21 07/09/23 History ipratropium 0.5 mg-albuterol 3 mg 3 ml inhalation QID PRN shortness 03/25/23 07/09/23 Rx (2.5 mg base)/3 mL nebulization of breath or wheezing #1,080 mL soln ipratropium 20 mcg-albuterol 100 1 puff inhalation QID PRN 03/25/23 07/09/23 Rx mcg/actuation mist for inhalation Shortness Of Breath #12 grams (Combivent Respimat) Oxygen Home #1 ea 04/08/23 Rx Oxygen Home #2 ea 05/03/23 Rx acetaminophen 500 mg tablet 500 mg PO Q6H PRN Pain 07/09/23 07/09/23 History (Tylenol Extra Strength) albuterol sulfate 90 mcg/actuation 2 puff inhalation Q4H PRN 07/09/23 07/09/23 History aerosol inhaler COUGH/SHORT OF BREATH/WHEEZING benzonatate 100 mg capsule 100 mg PO TID PRN cough 07/09/23 07/09/23 History buprenorphine 5 mcg/hour weekly 5 mcg transdermal WK 07/09/23 07/09/23 History transdermal patch conjugated estrogens 0.625 mg/gram 0.625 mg vaginal DIRECTED 07/09/23 07/09/23 History vaginal cream (Premarin) empagliflozin 10 mg tablet 10 mg PO QAM 07/09/23 07/09/23 History (Jardiance) lidocaine HCl 4 % (40 mg/mL) 1 applic mucous membrane 07/09/23 07/09/23 His tory mucosal solution DIRECTED PRN MOUTH ULCERS metoclopramide HCl 10 mg tablet 10 mg PO DAILYBB 07/09/23 07/09/23 History (Reglan) nystatin 100,000 unit/mL oral 5 ml mucous membrane QID PRN THRUSH 07/09/23 07/09/23 History suspension sucralfate 100 mg/mL oral 10 ml PO QID PRN NEEDED 07/09/23 07/09/23 History suspension torsemide 100 mg tablet 50 mg PO QAM 07/09/23 07/09/23 History warfarin 2.5 mg tablet 2.5 mg PO DIRECTED 07/09/23 07/09/23 History Patient History Medical History A-fib Anemia Anxiety CKD (chronic kidney disease), stage III Diabetes Encounter for pre-operative examination GERD (gastroesophageal reflux disease) History of blood transfusion HTN (hypertension) Hx of myocardial infarction Hyperlipidemia Hypothyroidism Migraines Mitral valve disease Osteoarthritis Restless legs syndrome TIA (transient ischemic attack) Surgical History H/O radioactive iodine thyroid ablation H/O: hysterectomy History of cardiac cath History of colonoscopy History of tonsillectomy and adenoidectomy History of total left knee replacement Hx of appendectomy Hx of cholecystectomy Hx of mitral valve replacement Hx of tubal ligation Family History Uncle , of [place] in his 40s Coronary heart disease Social History Smoking Status: Never smoker Second Hand Exposure: No; Do You Dip or Chew Tobacco: No; Hx Alcohol Use: Yes Alcohol type: wine Hx Substance Use: No Preferred Language: Peruvian Communication Ability: Effective Communication Ability Comment: speech impediment, easily understood Rn Testing Required: No Beliefs That Will Affect Care: None marital status: Single Current Living Situation: Alone Current Living Situation Comment: takes care of mother current occupational status: disabled How many Children do You have: 0 Other Information That Helps Us Care for You: No Feels Safe at Home: Yes Safety Concerns: Feels Safe At This Time Assistive Devices: Cane, Hospital Bed, Nebulizer, Oxygen - at Night and Walker Review of Systems Review of Systems: All systems reviewed & are unremarkable except as noted in HPI & below Physical Exam Constitutional: well developed and well nourished; no acute distress Neck: normal visual inspection and trachea midline Respiratory: normal respiratory effort Auscultation: + diminished lung sounds (bilateral bases ); no crackles, no rales, no rhonchi and no wheezes Cardiovascular: Rate/Rhythm: regular rate, + bradycardic and + irregularly irregular Heart Sounds: normal S1, normal S2 and + click (hx of mechanical valve ) Vessels: dorsalis pedis pulses present; no JVD Skin: no rashes, warm and dry Psychiatric: A+Ox3, euthymic affect Results & Data Vital Signs (Past 12 Hours) Vital Signs Temp Pulse Pulse Resp BP BP Pulse Ox 07/10/23 07:17 56 L 07/10/23 04:24 36.8 C 53 L 14 151/79 H 100 07/10/23 03:29 53 L 07/10/23 02:33 07/10/23 02:33 07/10/23 02:33 07/10/23 02:33 36.7 C 69 19 151/79 H 100 07/10/23 00:30 62 15 99 07/10/23 00:00 64 17 124/66 100 07/09/23 23:59 60 07/09/23 23:30 61 14 100 07/09/23 23:00 64 15 114/54 L 100 07/09/23 22:00 55 L 14 129/62 97 07/09/23 21:52 67 18 129/70 96 Pulse Ox O2 Del Method O2 Del Method O2 Flow Rate O2 Flow Rate 07/10/23 07:17 07/10/23 04:24 Nasal Cannula 2 07/10/23 03:29 07/10/23 02:33 Nasal Cannula 3 07/10/23 02:33 Nasal Cannula 3 07/10/23 02:33 100 Nasal Cannula 3 07/10/23 02:33 Nasal Cannula 3 07/10/23 00:30 07/10/23 00:00 07/09/23 23:59 07/09/23 23:30 07/09/23 23:00 07/09/23 22:00 Nasal Cannula 2 07/09/23 21:52 Nasal Cannula 2 Laboratory Results Cardiac Enzymes 07/09/23 Range/Units 16:55 AST 29 (13-39) U/L Troponin I High Sens 8.3 (0-14) pg/ml B-Natriuretic Peptide 88 (0-100) pg/ml Coagulation 07/09/23 07/10/23 Range/Units 16:55 05:02 PT 31.1 H 33.6 H (9.0-12.0) Seconds B-Natriuretic Peptide 88 (0-100) pg/ml CBC 07/09/23 07/10/23 Range/Units 16:55 05:03 WBC 8.10 5.60 (4.8-10.8) K/ul RBC 4.15 L 3.79 L (4.20-5.40) M/uL Hgb 11.9 L 10.8 L (12.0-16.0) g/dl Hct 36.5 L 33.5 L (37.0-47.0) % Plt Count 118 L 100 L (130-400) K/uL Neut # (Auto) 6.19 3.81 (1.40-6.50) K/uL Lymph # (Auto) 1.04 L 0.96 L (1.20-3.40) K/uL [place] # (Auto) 0.62 H 0.56 (0.11-0.59) K/uL Eos # (Auto) 0.19 0.22 (0.00-0.50) K/uL Baso # (Auto) 0.04 0.03 (0.00-0.20) K/uL Comprehensive Metabolic Panel 07/09/23 07/10/23 Range/Units 16:55 05:03 Sodium 134 L 137 (136-145) mmol/L Potassium 4.2 3.7 (3.5-5.1) mmol/L Chloride 98 100 (98-107) mmol/L Carbon Dioxide 30 31 (21-32) mmol/L BUN 32 H 31 H (6-23) mg/dl Creatinine 1.79 H 1.76 H (0.6-1.2) mg/dl Glucose 90 102 H (70-99(Fasting)) mg/dl Calcium 9.9 9.7 (8.6-10.3) mg/dl AST 29 (13-39) U/L ALT 14 (7-52) U/L Alkaline Phosphatase 78 (34-104) U/L Total Protein 7.7 (6.0-8.3) gm/dl Albumin 4.3 (3.4-5.0) gm/dl Intake and Output 07/09/23 07/10/23 07/10/23 22:59 06:59 14:59 Intake Total 100 / 100 Balance 100 / 100 Intake: IV 100 / 100 Albumin 25% 25 gm In 100 ml @ 100 / 100 50 mls/hr IV ONE ONE Rx#: [id number] Other: Weight 69.1 kg 69.1 kg Weight Measurement Method Built in [facility] Built in [facility] Diagnostic Findings Echocardiogram July 19, 2022 There was atrial fibrillation during the examination. The left ventricular cavity size is normal. The LV wall thickness is normal. The left ventricular wall motion is normal. The qualitative LV ejection fraction is 60-64% (normal). The left atrium is severely enlarged (>48 ml/m^2,). The right atrium is moderately enlarged. Mild aortic valve sclerosis is present. There is a mitral valve central disc (Roe-Medtronic type) mechanical prosthesis with surrounding heavy pannus but preserved leaflet mobility with mildly elevated transvalvular velocity and gradient. Mild aortic valve regurgitation is present. Severe tricuspid regurgitation is present. The estimated pulmonary artery systolic pressure is 35-40mm Hg. (1) Acute exacerbation of CHF (congestive heart failure) Heart failure type: diastolic Qualified Code(s): I50.33 - Acute on chronic diastolic (congestive) heart failure
[2023-07-10] MEDS: ROSUVASTATIN CALCIUM 20 MG TAB PO SCH (08:58)
[2023-07-10] MEDS: AZELASTINE HCL 0.1% NASAL 200 SPRAYS/27,400 MCG BTL SCH (08:58)
[2023-07-10] MEDS: METOPROLOL TARTRATE 25 MG TAB PO SCH (08:58)
[2023-07-10] MEDS: FOLIC ACID 1 MG TAB PO SCH (08:59)
[2023-07-10] MEDS: rOPINIRole HCL 2 MG TABLET PO SCH (08:59)
[2023-07-10] MEDS: PANTOprazole 40 MG TAB PO SCH (08:59)
[2023-07-10] MEDS: CITALOPRAM 20 MG TAB PO SCH (08:59)
[2023-07-10] MEDS: traMADol HCL 50 MG TABLET PO PRN (09:02)
[2023-07-10] MEDS: CHECK BUPRENORPHINE PATCH SCH (09:06)
--- NOTE | 2023-07-10 09:28 | Hospitalist Progress Note ---
Date of Service July 10, 2023 Assessment & Plan (1) Acute exacerbation of CHF (congestive heart failure): Plan: History diastolic dysfunction Cardiology consult Re: CHF Strict I/O's, daily weights, CHF education, fluid restriction Per cardiology - cont. lasix 60 IV bid for now CRI, creatinine at baseline, cont. 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 Coumadin INR goal between 2.5-3.5 Full code Admission and Anticipated Discharge Date Admission Date: July 09, 2023 Subjective Pt seen in follow up of CHF, complex cardiac hx, hx of CKD, now also w/ poss. UTI Currently sitting up in bed in NAD Reports some increased abd. girth and LE edema Overall says she feels little better Denies chest pain Seen by cardiology - recommend to continue lasix iv 60 bid Review of Systems Review of Systems: All systems reviewed & are unremarkable except as noted in Subjective Physical Exam Physical Exam: GENERAL: WD/WN elderly F in NAD HEENT: NC/AT, EOMI NECK : Supple CHEST : basilar crackles, no wheezing HEART : Irregular, ABDOMEN: Some distention, soft, nontender EXTREMITIES : bilateral LE swelling, no LE tenderness, moves extremities NEUROLOGIC : awake, alert, no facial asymmetry, mild dysarthria (chronic as per patient ), moving extremities SKIN: warm, dry Results & Data Results & Data Vital Signs (Past 12 Hours) Vital Signs Temp Pulse Pulse Resp BP BP Pulse Ox 07/10/23 07:17 56 L 07/10/23 04:24 36.8 C 53 L 14 151/79 H 100 07/10/23 03:29 53 L 07/10/23 02:33 07/10/23 02:33 07/10/23 02:33 07/10/23 02:33 36.7 C 69 19 151/79 H 100 07/10/23 00:30 62 15 99 07/10/23 00:00 64 17 124/66 100 07/09/23 23:59 60 07/09/23 23:30 61 14 100 07/09/23 23:00 64 15 114/54 L 100 07/09/23 22:00 55 L 14 129/62 97 07/09/23 21:52 67 18 129/70 96 Pulse Ox O2 Del Method O2 Del Method O2 Flow Rate O2 Flow Rate 07/10/23 07:17 07/10/23 04:24 Nasal Cannula 2 07/10/23 03:29 07/10/23 02:33 Nasal Cannula 3 07/10/23 02:33 Nasal Cannula 3 07/10/23 02:33 100 Nasal Cannula 3 07/10/23 02:33 Nasal Cannula 3 07/10/23 00:30 07/10/23 00:00 07/09/23 23:59 07/09/23 23:30 07/09/23 23:00 07/09/23 22:00 Nasal Cannula 2 07/09/23 21:52 Nasal Cannula 2 Laboratory Results 07/10/23 07/10/23 07/10/23 Range/Units 08:03 05:03 05:02 WBC 5.60 (4.8-10.8) K/ul RBC 3.79 L (4.20-5.40) M/uL Hgb 10.8 L (12.0-16.0) g/dl Hct 33.5 L (37.0-47.0) % MCV 88.4 (80.0-100.0) fL MCH 28.5 (25.0-34.0) pg MCHC 32.2 (32.0-36.0) g/dL RDW Std Deviation 49.2 H (36.4-46.3) fL RDW Coeff of Courtney 15.5 H (11.5-14.5) % Plt Count 100 L (130-400) K/uL MPV 11.5 (9.4-12.4) fL Immature Gran % (Auto) 0.4 % Neut % (Auto) 68.1 % Lymph % (Auto) 17.1 % [place] % (Auto) 10.0 % Eos % (Auto) 3.9 % Baso % (Auto) 0.5 % Neut # (Auto) 3.81 (1.40-6.50) K/uL Lymph # (Auto) 0.96 L (1.20-3.40) K/uL [place] # (Auto) 0.56 (0.11-0.59) K/uL Eos # (Auto) 0.22 (0.00-0.50) K/uL Baso # (Auto) 0.03 (0.00-0.20) K/uL Immature Gran # (Auto) 0.02 (0.01-0.20) K/uL PT 33.6 H (9.0-12.0) Seconds INR 3.5 H (0.9-1.1) Sodium 137 (136-145) mmol/L Potassium 3.7 (3.5-5.1) mmol/L Chloride 100 (98-107) mmol/L Carbon Dioxide 31 (21-32) mmol/L Anion Gap 6 (3-11) BUN 31 H (6-23) mg/dl Creatinine 1.76 H (0.6-1.2) mg/dl Est Cr Clr Drug Dosing 26.2 Est GFR ( Amer) 33.6 ml/min Est GFR (Non-Af Amer) 29.0 ml/min BUN/Creatinine Ratio 17.6 (10-20) Glucose 102 H (70-99(Fasting)) mg/dl POC Glucose 83 (70-99) mg/dl Calcium 9.7 (8.6-10.3) mg/dl Magnesium (1.7-2.4) mg/dl Total Bilirubin (0.2-1.0) mg/dl AST (13-39) U/L ALT (7-52) U/L Alkaline Phosphatase (34-104) U/L Troponin I High Sens (0-14) pg/ml B-Natriuretic Peptide (0-100) pg/ml Total Protein (6.0-8.3) gm/dl Albumin (3.4-5.0) gm/dl Globulin (2.5-4.0) gm/dl Albumin/Globulin Ratio (0.9-2) Urine Color Urine Appearance (Clear) Urine pH (4.5-7.5) Ur Specific [place] (1.000-1.030) Urine Protein (Negative) Urine Glucose (UA) (Negative) Urine Ketones (Negative) Urine Blood (Negative) Urine Nitrite (Negative) Urine Bilirubin (Negative) Urine Urobilinogen (Negative) Ur Leukocyte Esterase (Negative) Urine WBC (Auto) (0-5) /hpf Urine RBC (Auto) (0-2) /hpf U Hyaline Cast (Auto) (0-2) /lpf U Epithel Cells (Auto) (0-2) /hpf Urine Bacteria (Auto) (None Seen) 07/10/23 07/09/23 07/09/23 Range/Units 02:15 21:50 16:55 WBC 8.10 (4.8-10.8) K/ul RBC 4.15 L (4.20-5.40) M/uL Hgb 11.9 L (12.0-16.0) g/dl Hct 36.5 L (37.0-47.0) % MCV 88.0 (80.0-100.0) fL MCH 28.7 (25.0-34.0) pg MCHC 32.6 (32.0-36.0) g/dL RDW Std Deviation 49.3 H (36.4-46.3) fL RDW Coeff of [place]ney 15.4 H (11.5-14.5) % Plt Count 118 L (130-400) K/uL MPV 11.5 (9.4-12.4) fL Immature Gran % (Auto) 0.2 % Neut % (Auto) 76.5 % Lymph % (Auto) 12.8 % [place] % (Auto) 7.7 % Eos % (Auto) 2.3 % Baso % (Auto) 0.5 % Neut # (Auto) 6.19 (1.40-6.50) K/uL Lymph # (Auto) 1.04 L (1.20-3.40) K/uL [place] # (Auto) 0.62 H (0.11-0.59) K/uL Eos # (Auto) 0.19 (0.00-0.50) K/uL Baso # (Auto) 0.04 (0.00-0.20) K/uL Immature Gran # (Auto) 0.02 (0.01-0.20) K/uL PT 31.1 H (9.0-12.0) Seconds INR 3.2 H (0.9-1.1) Sodium 134 L (136-145) mmol/L Potassium 4.2 (3.5-5.1) mmol/L Chloride 98 (98-107) mmol/L Carbon Dioxide 30 (21-32) mmol/L Anion Gap 6 (3-11) BUN 32 H (6-23) mg/dl Creatinine 1.79 H (0.6-1.2) mg/dl Est Cr Clr Drug Dosing Not Reportable Est GFR ( Amer) 32.9 ml/min Est GFR (Non-Af Amer) 28.4 ml/min BUN/Creatinine Ratio 17.9 (10-20) Glucose 90 (70-99(Fasting)) mg/dl POC Glucose 156 H (70-99) mg/dl Calcium 9.9 (8.6-10.3) mg/dl Magnesium 2.7 H (1.7-2.4) mg/dl Total Bilirubin 0.9 (0.2-1.0) mg/dl AST 29 (13-39) U/L ALT 14 (7-52) U/L Alkaline Phosphatase 78 (34-104) U/L Troponin I High Sens 8.3 (0-14) pg/ml B-Natriuretic Peptide 88 (0-100) pg/ml Total Protein 7.7 (6.0-8.3) gm/dl Albumin 4.3 (3.4-5.0) gm/dl Globulin 3.4 (2.5-4.0) gm/dl Albumin/Globulin Ratio 1.3 (0.9-2) Urine Color Yellow Urine Appearance Clear (Clear) Urine pH 7.0 (4.5-7.5) Ur Specific [place] 1.014 (1.000-1.030) Urine Protein Negative (Negative) Urine Glucose (UA) Trace H (Negative) Urine Ketones Negative (Negative) Urine Blood Negative (Negative) Urine Nitrite Negative (Negative) Urine Bilirubin Negative (Negative) Urine Urobilinogen Negative (Negative) Ur Leukocyte Esterase 3+ H (Negative) Urine WBC (Auto) >50 H (0-5) /hpf Urine RBC (Auto) 0-2 (0-2) /hpf U Hyaline Cast (Auto) 0-2 (0-2) /lpf U Epithel Cells (Auto) 0-2 (0-2) /hpf Urine Bacteria (Auto) 4+ H (None Seen) Medications Administered Current Inpatient Medications Acetaminophen (Acetaminophen 325 Mg Tab) 650 mg PO QID PRN PRN Reason: pain/fever Stop: 08/09/23 00:05 Albuterol (Albut/Ipratrop 3mg/0.5mg Neb 3 Ml Vial) 3 ml INH QID PRN; Protocol PRN Reason: shortness of breath or wheezing Stop: 08/09/23 01:24 Azelastine HCl (Azelastine Hcl 0.1% Nasal 200 Sprays/27,400 Mcg Btl) 2 sprays NA [facility] Stop: 08/09/23 08:59 Last Admin: 07/10/23 08:58 Dose: 2 sprays Buprenorphine HCl (Buprenorphine 5 Mcg/Hr Tdsy) 1 patch TD Q7D [facility] Stop: 08/09/23 08:59 Citalopram Hydrobromide (Citalopram 20 Mg Tab) 10 mg PO DAILY [facility] Stop: 08/09/23 08:59 Last Admin: 07/10/23 08:59 Dose: 10 mg Dextrose (Dextrose 50% 50 Ml Syringe) 25 - 50 ml IV UD PRN; Protocol PRN Reason: Hypoglycemia Protocol Stop: 08/09/23 01:24 Folic Acid (Folic Acid 1 Mg Tab) 1 mg PO QAM [facility] Stop: 08/09/23 08:59 Last Admin: 07/10/23 08:59 Dose: 1 mg Glucagon (Glucagon For Inj 1 Mg Vial) 1 mg SQ UD PRN; Protocol PRN Reason: Hypoglycemia Protocol Stop: 08/09/23 01:24 Glucose (Glucose 40% Gel 15 Gm Tube) 15 - 30 gm PO UD PRN; Protocol PRN Reason: Hypoglycemia Protocol Stop: 08/09/23 01:24 Glucose (Glucose 10 Tab/Tube) 4 - 8 tab PO UD PRN; Protocol PRN Reason: Hypoglycemia Treatment Stop: 08/09/23 01:24 Insulin Aspart (Insulin Aspart Per Unit Charge) 0 units SC ACHS [facility] Stop: 08/09/23 01:24 Last Admin: 07/10/23 08:49 Dose: Not Given Levothyroxine Sodium (Levothyroxine Sodium 100 Mcg Tablet) 100 mcg PO DAILYBB [facility] Stop: 08/09/23 06:29 Last Admin: 07/10/23 06:43 Dose: 100 mcg Metoclopramide HCl (Metoclopramide Hcl 10 Mg Tablet) 10 mg PO DAILYBB [facility] Stop: 08/09/23 06:29 Last Admin: 07/10/23 06:45 Dose: Not Given Metoprolol Tartrate (Metoprolol Tartrate 25 Mg Tab) 25 mg PO BID [facility] Stop: 08/09/23 08:59 Last Admin: 07/10/23 08:58 Dose: 25 mg Miscellaneous (Carbohydrates For Hypoglycemia ) 15 - 30 gm PO UD PRN PRN Reason: Hypoglycemia Protocol Stop: 08/09/23 01:24 Miscellaneous (Remove & Waste Butrans Patch 1 Ea Ea) 1 each N/A Q7D [facility] Stop: 08/09/23 08:59 Miscellaneous (Check Buprenorphine Patch) 1 each N/A QS [facility] Stop: 08/09/23 07:59 Last Admin: 07/10/23 09:06 Dose: 1 each Nitroglycerin (Nitroglycerin Sl 0.4 Mg/Tab Tab) 0.4 mg SL Q5M PRN PRN Reason: Chest Pain Stop: 08/09/23 01:24 Ondansetron HCl (Ondansetron Inj 2 Mg/Ml 2 Ml Vial) 4 mg IV Q6H PRN PRN Reason: Nausea And Vomiting Stop: 08/09/23 00:04 Pantoprazole Sodium (Pantoprazole 40 Mg Tab) 40 mg PO QAM [facility] Stop: 08/09/23 08:59 Last Admin: 07/10/23 08:59 Dose: 40 mg Ropinirole HCl (Ropinirole Hcl 2 Mg Tablet) 2 mg PO TID [facility] Stop: 08/09/23 08:59 Last Admin: 07/10/23 08:59 Dose: 2 mg Rosuvastatin Calcium (Rosuvastatin Calcium 20 Mg Tab) 20 mg PO QAM [facility] Stop: 08/09/23 08:59 Last Admin: 07/10/23 08:58 Dose: 20 mg Sucralfate (Sucralfate 1 Gm/10 Ml Udc) 1 gm PO QID PRN PRN Reason: NEEDED Stop: 08/09/23 01:24 Tramadol HCl (Tramadol Hcl 50 Mg Tablet) 50 mg PO BID PRN PRN Reason: Pain Stop: 08/09/23 01:24 Last Admin: 07/10/23 09:02 Dose: 50 mg (1) Acute exacerbation of CHF (congestive heart failure) Heart failure type: diastolic Qualified Code(s): I50.33 - Acute on chronic diastolic (congestive) heart failure
[2023-07-10] MEDS: BUPRENORPHINE 5 MCG/HR TDSY TD SCH (10:30)
[2023-07-10] MEDS: cefTRIAXone SODIUM 1,000 MG/50 ML BAG IV SCH (11:16)
[2023-07-10] MEDS: FUROSEMIDE 40 MG/4 ML VIAL IV ONE (14:28)
--- NOTE | 2023-07-10 16:25 | Electrocardiogram Report ---
Test Reason : Blood Pressure : / mmHG Vent. Rate : 068 BPM Atrial Rate : 000 BPM P-R Int : 000 ms QRS Dur : 088 ms QT Int : 408 ms P-R-T Axes : 000 -56 053 degrees QTc Int : 433 ms Atrial fibrillation Left anterior fascicular block Poor R wave progression, consider anterior [place] vs. lead placement vs. LVH Nonspecific ST and T wave abnormality Abnormal ECG When compared with ECG of 18-FEB-2022 17:53, Nonspecific T wave abnormality, improved in Inferior leads Confirmed by Maury Hernandez [id number]) on 07/10/2023 4:25:25 PM Referred By: Hadley Molina Confirmed By:Maury Hernandez
--- OUTSIDE RECORDS SUMMARY | 2023-07-10 16:33 | External Medical Summary | Summary of Care ---
Author Name Unknown Organization [facility] Address [address] [facility] [place] [address] Phone [phone] Care Team Providers Care Manager Of Internal Name Role Phone Shara Ray MD Primary Care Provide r Encounter Details Date Type Department Care Team (Late st Contact Info) Description 07/09/2023 11:00 AM EDT Nurse Only Ancillary [address] [place] [address] [place], Nurse [address] [place] [address] Allergies Active Allergy Reactions Criticality Noted Date Comments Vincent Inhibitors 11/13/2005 cough Budesonide Other (Please comment) High 06/13/2022 trouble breathing Gabapentin Neuro complications (Please comment) 01/08/2020 confusion Hydroxyzine High 03/31/2021 Other reaction(s): DYSTONIA Enoxaparin 08/23/2021 Metformin High 03/31/2021 Other reaction(s): DIARRHEA Oxycodone 11/11/2018 " numb all over" Parsley Seed High 07/18/2021 Other reaction(s): AGITATION Phenothiazines Unknown 10/08/2000 Prochlorperazine Neuro complications (Please comment) 10/08/2000 dystonia Tetracycline Nausea/vomiting 10/08/2000 documented as of this encounter (statuses as of 07/09/2023) Medications Medication Sig Dispensed Refills Start Date End Date Status acetaminophen (TYLENOL) 500 MG Tablet Take 1 Tablet by mouth every 6 hours as needed for Pain. Active milk of magnesia (MOM) 400 MG/5ML suspension Take by mouth daily as needed for Constipation. Active Benzonatate 100 MG Oral Capsule (Tessalon Perles)Indications:C ough Take by mouth 1 Capsule as needed in the morning AND 1 Capsule as needed at noon AND 1 Capsule as needed in the evening for Cough. 30 Capsule 1 07/03/2021 Active Magnesium Glycinate 665 MG Oral CapsuleIndications:R estless legs syndrome One daily 100 Capsule 1 01/23/2022 Active Omeprazole 20 MG Oral Capsule Delayed Release (PriLOSEC)Indication s:Encounter for long-term (current) use of medications,Gastroes ophageal reflux disease with esophagitis Take 1 Capsule by mouth in the morning. 100 Capsule 1 08/17/2022 Active Estrogens Conjugated 0.625 MG/GM Vaginal Cream (Premarin)Indication s:Postmenopausal atrophic vaginitis ADMINISTER INTO THE VAGINA AT BEDTIME DIRECTED 90 g 2 08/14/2022 4 Active Albuterol Sulfate HFA 108 (90 Base) MCG/ACT Inhalation Aerosol Solution INHALE TWO PUFFS BY MOUTH EVERY MORNING - TWO PUFFS EVERY EVENING - AND EVERY 4 HOURS NEEDED FOR WORSENING COUGH, CHEST TIGHTNESS, FOR WHEEZING OR FOR SHORTNESS OF BREATH 54 g 2 08/13/2022 4 Active Folic Acid 1 MG Oral TabletIndications:Mi ld protein-calorie malnutrition (HCC) TAKE ONE TABLET BY MOUTH EVERY MORNING 100 Tablet 1 07/21/2022 4 Active rOPINIRole HCl 2 MG Oral Tablet (Requip)Indications: Restless legs syndrome Take 1 Tablet by mouth in the morning and 1 Tablet at noon and 1 Tablet before bedtime. 300 Tablet 3 09/11/2022 Active Additional Information Patient taking differently:2 mg OralHS, Reported on 03/06/2023 Lidocaine HCl 4 % External Solution Apply topically to affected area once for 1 dose. Apply to mouth ulcers as needed 50 mL 12/06/2022 Active Sucralfate 1 GM/10ML Oral Suspension (Carafate) TAKE 10 ML BY MOUTH NEEDED IN THE MORNING AND 10 ML NEEDED AT NOON AND 10 ML NEEDED IN THE EVENING AND 10 ML NEEDED BEFORE BEDTIME. 420 mL 1 12/18/2022 Active Metoprolol Tartrate 25 MG Oral Tablet (Lopressor) TAKE ONE TABLET BY MOUTH TWICE A DAY IN THE MORNING AND BEFORE BEDTIME 200 Tablet 1 02/05/2023 4 Active Nystatin [id number] UNIT/ML Mouth/Throat SuspensionIndication s:Thrush Swish and swallow 5 mL in the morning and 5 mL at noon and 5 mL in the evening and 5 mL before bedtime. For thrush.. 240 mL 1 02/14/2023 Active Warfarin Sodium 2.5 MG Oral Tablet (Coumadin) Take 1 and 1/2 to 2 tablets by mouth daily as directed by antico clinic 180 Tablet 3 03/06/2023 Active Nitroglycerin 0.4 MG Sublingual Tablet Sublingual (Nitrostat)Indicatio ns:Old myocardial infarct,Atrial fibrillation (HCC),HTN, goal to be determined PLACE 1 TABLET UNDER THE TONGUE EVERY 5 MINUTES UP TO 3 DOSES NEEDED FOR CHEST PAIN. IF NO RELIEF CALL 911 OR GO TO ER 75 Tablet 03/08/2023 Active traMADol HCl 50 MG Oral Tablet (Ultram)Indications: Generalized osteoarthritis,Post- traumatic osteoarthritis of right knee,Closed nondisplaced fracture of left tibial tuberosity with routine healing Take 1 Tablet by mouth 2 times a day as needed for Pain, Severe. 60 Tablet 03/08/2023 Active Additional Information Patient taking differently:50 mg OralQID(Non-Specified), Reported on 06/21/2023 Combivent Respimat 20-100 MCG/ACT Inhalation Aerosol Solution (Ipratropium-Albuter ol) inhale 1 puff four times daily As Needed for Shortness Of Breath 12 g 1 03/25/2023 Active Ipratropium-Albutero l 0.5-2.5 (3) MG/3ML Inhalation Solution (Duoneb) inhale 1 vial (3 mL) via nebulizer four times daily As Needed for shortness of breath or wheezing 1080 mL 2 03/25/2023 Active Citalopram Hydrobromide 10 MG Oral Tablet (CeleXA)Indications: BOBBY (generalized anxiety disorder) TAKE ONE TABLET BY MOUTH EVERY MORNING 100 Tablet 1 04/04/2023 5 Active Levothyroxine Sodium 100 MCG Oral Tablet (Levoxyl)Indications :Hypothyroidism, postablative TAKE ONE TABLET by MOUTH DAILY FIRST THING IN THE MORNING AT LEAST 30 MINUTES PRIOR TO BREAKFAST OR OTHER MEDS 100 Tablet 1 04/04/2023 Active Torsemide 100 MG Oral Tablet (Demadex)Indications :Acute on chronic right-sided heart failure (HCC),S/P mitral valve replacement,Permanen t atrial fibrillation (HCC) Take 0.5 Tablets by mouth in the morning. 45 Tablet 3 05/02/2023 Active Rosuvastatin Calcium 10 MG Oral Tablet (Crestor) Take 1 Tablet by mouth in the morning. 100 Tablet 1 05/15/2023 Active Metoclopramide HCl 10 MG Oral Tablet (Reglan)Indications: Nausea TAKE ONE TABLET BY MOUTH EVERY MORNING 30 MINUTES BEFORE A MEAL 90 Tablet 1 05/24/2023 Active Azelastine HCl 0.1 % Nasal Solution (Astelin) ADMINISTER INTO NOSTRIL TWO SPRAYS IN THE MORNING AND TWO SPRAYS BEFORE BEDTIME 30 mL 2 06/04/2023 Active Buprenorphine 5 MCG/HR Transdermal Patch Weekly (Butrans) Apply 1 patch to skin once a week as directed 05/31/2023 Active Nebulizer/Tubing/Manju thpiece Kit Use as directed 1 Kit 1 06/04/2023 Active oxygen IN GAS Use 2 L/min(Oxygen) as directed at bedtime. Ordered by pulmonary in Mar 2023. Active valACYclovir HCl 1 GM Oral Tablet (Valtrex)Indications :Cold sore Take 2 Tablets by mouth in the morning and 2 Tablets before bedtime. for cold sores. 4 Tablet 11 06/19/2023 Active Spironolactone 25 MG Oral Tablet (Aldactone)Indicatio ns:Chronic heart failure with preserved ejection fraction (HCC) Take one-half Tablet by mouth in the morning. 45 Tablet 1 06/20/2023 Active Empagliflozin 10 MG Oral Tablet (Jardiance) Take 1 Tablet by mouth in the morning. 90 Tablet 3 06/21/2023 Active D3-1000 25 MCG (1000 UT) Oral Capsule (Cholecalciferol) Take 1 Capsule by mouth every other day. 07/02/2023 Active documented as of this encounter (statuses as of 07/09/2023) Active Problems Problem Noted Date Diagnosed Date Major depressive disorder, recurrent, moderate 0 04/03/2023 Last Assessment & Plan: Mood stable on current dose celexa Other persistent atrial fibrillation 04/03/2023 Last Assessment & Plan: Rate controlled Continue coumadin Atherosclerosis of [place] co ronary artery without angina pectoris 04/03/2023 Iron deficiency anemia 09/21/2022 Last Assessment & Plan: Had reaction to IV iron (things looked yellow and she passed out). Has another appt with infusion clinic in Dec 2022. They will determine if there is anything else that she can take. Restless leg syndrome 09/21/2022 Last Assessment & Plan: Stable on Requip Closed nondisplaced fracture of left tibial tuberosity with routine healing 12/12/2021 Controlled substance agreement signed 12/05/2021 Hematoma of leg, left, subsequent encounter 09/2021 Overview: [facility] ER ulstrasound shows hematoma calf, INR 4.2, hgb 9.9 Other injury of unspecified body region, subsequent encounter 08/31/2021 Overview: Intramuscular hematoma Last Assessment & Plan: Small hematoma noted L lateral hip. Pen markings noted. Edema well within marking. Coumadin restarted. Due for INR on 09/04 Chronic cough 07/07/2021 Overview: Since 03/2021 Generalized anxiety disorder 06/26/2021 Last Assessment & Plan: Stable on celexa Hypertensive heart and kidne y disease with chronic diastolic congestive heart failure and stage 3b chronic kidney disease 04/26/2021 Last Assessment & Plan: "RED FLAG" HF Symptoms: Leg Swelling (Examples: "I can't wear certain socks or shoes", "My pants feel tight") Abdominal Bloating (Examples: "I can't wear certain pants", "My belly feels hard", "I look ") Increased dyspnea on exertion (Example: "I can't walk to the kitchen or up the stairs") Medication Regimen: Beta Galina Therapy: Metoprolol Tartrate VINCENT Inhibitor/ARB Therapy: No VINCENT/ARB/ARNI secondary to: allergy Diuretic therapy: Torsemide Aldactone SGLT2 Inhibitor: No Current SGLT2 (Describe in the Comments) Remote Patient Monitoring Vendor: [facility] [place] [place] Device(s): Connected Scale Self - Management Plan Add additional 1/2 tab to afternoon dose of Torsemide Exacerbation Plan Anticipated IV Lasix dose: 200 mg Additional Comments: Increase lasix to 150mg x 3 days Continue to monitor weights daily History of falling 04/26/2021 Overview: historical Last Assessment & Plan: Last fall 04/24/21 Ambulating with a walker due to pain from hematoma. PT coming to home twice weekly Type 2 diabetes mellitus wit h stage 3b chronic kidney disease, without long-term current use of insulin 06/28/2020 Overview: Per CKD protocol Last Assessment & Plan: Last HgbA1c 6.2 Status post bilateral knee replacements 01/28/20 19 Tachy-sammi syndrome 02/14/2018 Permanent atrial fibrillation 12/18/2017 Last Assessment & Plan: HR stable today Continue metoprolol 25 mg BID, coumadin-per coumadin clinic History of TIA (transient ischemic attack) 09/10 Varicose veins of both legs with edema 8 Dyslipidemia, goal LDL below 100 06/21/2015 Last Assessment & Plan: Lipids stable 12/08/21 Continue Cresor Hypothyroidism, postablative 09/24/2013 Last Assessment & Plan: Continue synthroid 100 mcg Generalized osteoarthritis 01/31/2010 Gastroesophageal reflux dise ase with esophagitis without hemorrhage 12/03/2008 Overview: min gastric inflammation and mod active chronic esophageal inflammation-repeat EGD in 2 yrs Last Assessment & Plan: Symptoms well controlled on omeprazole 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 use of anticoagulant therapy 0 05/10/2004 Overview: ICD-10 update of inactive term Rheumatic heart disease 03/05/2002 Old myocardial infarct 01/02/2001 Last Assessment & Plan: Continue Crestor 20 mg daily S/P mitral valve replacement Last Assessment & Plan: Chronic AC coumadin Atherosclerosis of [place] ronary artery of [place] heart without angina pectoris documented as of this encounter (statuses as of 07/09/2023) Resolved Problems Problem Noted Date Diagnosed Date Resolved Date COPD, group B, by GOLD 2017 classification 08/27/2022 06/20/2023 Overview: Per COPD GOLD Classification Last Assessment & Plan: "RED FLAG" COPD symptoms: Increased dyspnea on exertion ("I can't walk to the kitchen or up the stairs without coughing and wheezing", "My chest feels tight any time I move") Wheezing ("You can hear the whistling across the room") Medication Regimen Class A - [place]-KORTNEY Combination Inhaler Remote Patient Monitoring Vendor: No Connected RPM Device(s): Traditional BP Cuff Self-Management plan Oral Antibiotic Rx (see medication list) High frequency nebulizer treatments every 4-6 hours around the clock Exacerbation plan Solumedrol 40mg IM/IV Chest Xray Additional Comments: 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 Rashel Sales [facility] Complicated UTI (urinary tract infection) 12/20/2021 05/17/2022 Mild protein-calorie malnutrition 12/05/2021 06/20/2023 Chronic obstructive pulmonary disease 08/21/2021 08/30/2022 Overview: Per COPD GOLD Classification Last Assessment & Plan: No SOB. O2 stable on RA Continue Duonebs and Breo Chronic diastolic CHF (conge stive heart failure) 07/18/2021 08/21/2021 Cough variant asthma 01/16/2021 022 Chronic kidney disease, stage 3b 08/02/2020 04/26/2021 Overview: Per CKD protocol Diabetes mellitus with stage 3 chronic kidney disease 12/28/2019 06/30/2020 Overview: Per CKD protocol Type 2 diabetes mellitus wit h stage 3 chronic kidney disease 08/18/2018 12/31/2019 Overview: Per CKD protocol Anxiety 09/10/2017 04/26/2021 MEDICATION USE AGREEMENT 08/29/201710/2021 Restless legs syndrome 12/06/201606/18 Overview: duplicate Last Assessment & Plan: Symptoms are well controlled at this time. She is taking Requip. TIA (transient ischemic attack) 12/23/2013 12/06/2016 Overview: embolic Hyperlipidemia with target LDL less than 100 4 06/05/2016 Overview: ICD-10 update of inactive term Dyslipidemia, goal LDL below 70 09/24/2013 12/23/2013 Hypothyroidism (acquired) 09/03/2013 KIDNEY DISEASE, CHRONIC, STA GE III (GFR 30-59 ML/MIN) 07/09/2011 08/28/2018 Overview: Per CKD protocol #1 ORBIT-AF Research Other*[id number] 06/02/2010 04/18/2011 Overview: PROJECT: #[id number], SPONSOR: Aileen, PI: Adolfo De Jesus MD SUMMARY: Observational registry to better understand how patients with A-Fib are cared for (utilization, effectiveness, safety of antithrombotic therapy for stroke prevention). Patients are recruited through an invitational letter. Study data will be collected (by research staff) from the EHR for at least 2 years on consenting patients at approximate 6-month intervals when seen at routine clinic visits. There is no study intervention. A BPA will fire in office visit notes and is connected to a flowsheet which has 2-4 questions that must be answered by the visit provider before the encounter can be closed. CONTACT: Roberto Carlos Huertas, Bead Picker Type 2 diabetes mellitus wit h hemoglobin A1c goal of less than 7.0% 04/24/2010 08/29/2018 Overview: ICD-10 update of inactive term ACTIVE CASE MANAGEMENT Kassie Anthony, TANISHA [phone] 05/10/19 10 12/05/2009 ADVANCE DIRECTIVE INFORMATION 05/09/2009 04/26/2021 Overview: No, Advance Directive brochure given to patient. Dyslipidemia, goal LDL below 100 02/03/2009 09/24/2013 Overview: Per Lipid Taxonomy. Other abnormal glucose 03/13/200509/24 Mixed dyslipidemia 04/08/2002 9 Overview: Per Lipid Taxonomy. Anticoagulation management encounter 08/06/2001 11/25/2017 Overview: INR 3-3.5 OLD MYOCARDIAL INFARCT 01/02/200112/06 Hypothyroidism 01/02/2001 09/03/2013 THROMBOEMBOLIC MYOCARDIAL INFARCTION 10/19/2000 12/06/2016 CLASSICAL MIGRAINE WITH INTR ACTABLE MIGRAINE, SO STATED 04/26/2021 Atrial fibrillation 05/29/19 19 Right knee DJD 01/27/2019 Hemarthrosis involving knee joint 09/03/2013 Protein calorie malnutrition 03/03/2019 Type 2 diabetes mellitus wit h hemoglobin A1c goal of less than 7.0% 04/26/2021 documented as of this encounter (statuses as of 07/09/2023) Immunizations Name Administration Dates Next Due COVID-19 mRNA, LNP-s, No Pre serve, 2-Dose Series (Moderna) 04/19/2020,03/22/2020 COVID-19, MRNA-LNP, 23-24, P F, 30 MCG/0.3 mL, 12 YRS AND ABOVE, IM (PFIZER-Comirnaty) 12/03/2022 COVID-19, mRNA, LNP-s, PF, B ooster, 100mcg/0.5mg (Moderna) 03/14/2021 Covid-19, Mrna, Lnp-s, Pf, B ivalent, 50 Mcg, IM, 12 yrs and above (Moderna) 11/29/2021 Hepatitis B, 20+ yrs 09/01/1978,04/04/1978,03/04 Pneumococcal Conjugate Vacc, 13 Valent (Prevnar) 08/29/2018 Pneumococcal Polysaccharide PPV23 (Pneumovax) 09/02/2019 Season Influenza, Quad, PF, Adjuvanted, 65+ Yrs, IM (FLUAD) 12/03/2019 Seasonal Influenza, PF, 6 M & above, IM , (FluLaval or Fluzone) 10/28/2018,10/29/2017,12/06/2016 Seasonal Influenza, Quadriva lent Hd (Fluzone Hd) 11/30/2022,11/06/2021,11/10/2020 Seasonal Influenza, Quadriva lent, No Preserve, IM 12/05/2015,12/07/2014 Seasonal Influenza, Split, I IV3, With Preserve, Inj 11/03/2013,11/06/2012,10/30/2011,11/16,11/29/2009,11/03/2008,11/24/2007 ,12/10/2006,12/11/2005 TDAP (age 10 and older)(Boostrix) 10/14/2018 TDAP (age 11 and older)(Adacel) 08/13/2007 Zoster Vaccine Recombinant (Shingrix) 03/08/2020 ,10/12/2019,09/02/2019 documented as of this encounter Social History Tobacco Use Types Packs/Day Years Used Date Smoking Tobacco: Never Smokeless Tobacco: Never Comments:No passive smoke ex posures Alcohol Use Standard Drinks/Week Comments Yes 7 (1 standard drink = 0.6 oz pur e alcohol) wine daily PHQ-2 Answer Date Recorded PHQ Adult Total Score 0 05/24/2023 Hunger Vital Sign Answer Date Recorded Within the past 12 months, y ou worried that your food would run out before you got the money to buy more. Never true 05/24/19 24 Within the past 12 months, t he food you bought just didn't last and you didn't have money to get more. Never true 05/24/2023 Sex and Gender Information Value Date Recorded Sex Assigned at Female 07/05/2021 2:35 PM EDT Gender Identity Female 07/05/2021 2:35 PM EDT Sexual Orientation Straight 07/05/2021 2: 35 PM EDT Job Start Date Occupation Industry Not on file Not on file Not on file documented as of this encounter Functional Status Functional Status Response Date of Assess ment Are you deaf or do you have serious difficulty h earing? No 12/12/2021 Are you blind or do you have serious difficulty seeing, even when wearing glasses? No 12/12/2021 Do you have serious difficul ty walking or climbing stairs? (5 years old or older) Yes 12/18/2021 Do you have difficulty dress ing or bathing? (5 years old or older) Yes 12/12/2021 Because of a physical, menta l, or emotional condition, do you have difficulty doing errands alone such as visiting a doctor s office or shopping? (15 years old or older) No 12/13/19 Cognitive Status Response Date of Assessm ent Because of a physical, menta l, or emotional condition, do you have serious difficulty concentrating, remembering, or making decisions? (5 years old or older) No 12/12/2021 documented as of this encounter Nursing Notes * Enedelia Amado LPN - 07/09/2023 11:08 AM EDT Walk test done & documented. Faxed to [facility] documented in this encounter Plan of Treatment Upcoming Encounters Date Type Department Care Team (Late st Contact Info) Description 07/10/2023 7:05 AM EDT Laboratory Lab Mobile Phlebotomy [facility] [address] [place] [place] [address] [facility], [facility] Mobile [facility] Draw [address] [address] [address] 07/10/2023 6:00 PM EDT Anticoagulation Pharmacy Call Center [phone] [place] [address] Ccp, [facility] [address] [facility] [place] [address] 08/05/2023 1:00 PM EDT Nurse Only Ancillary [address] [place] [address] [place], Nurse [address] [place] [address] 09/06/2023 8:30 AM EDT Home Visit [facility], [facility] [address] [facility] [place] [address] Valentina Laws, TANISHA [address] [facility] [place] [address] 09/20/2023 8:00 AM EDT Laboratory Lab Mobile Phlebotomy [facility] [address] [place] [address] [facility], [facility] Mobile Home Draw [address] [place] [address] 09/24/2023 11:30 AM EDT Office Visit Nephrology, [facility] [address] [facility] [place] [address] ZeKary bliss PA-C [address] [facility] [place] [address] 10/22/2023 11:00 AM EDT Office Visit Cardiology, [facility] [address] [facility] [place] [address] Hadley Molina MD [address] [facility] [place] [address] 12/20/2023 8:00 AM EDT Laboratory Lab Mobile Phlebotomy [facility] [address] [facility] [place] [address] [facility], [facility] Mobile Home Draw [address] [place] [address] 12/26/2023 2:00 PM EST Office Visit Hematology/Oncology [facility] [address] [place] [phone] Bouchra Del Cid CRNP [address] [facility] [place] [address] 01/17/2024 8:00 AM EST Office Visit Family [address] [phone] Shara Ray MD [address] [place] [address] [place] [address] 03/27/2024 8:00 AM EST Laboratory Lab Mobile Phlebotomy [facility] [address] [place], [place] [id number] [facility], [facility] Mobile Home Draw [address] [place] [address] 06/09/2024 1:30 PM EDT Office Visit Allergy/Immunology [facility] [place] [address] [place] [address] Rae Ramirez PA-C [address] [place] [address] 06/24/2024 1:40 PM EDT Office Visit Family [address] [phone] Shara Ray MD [address] [place] [address] [place] [address] Scheduled Procedures Name Priority Associated Diagnoses Date/Ti me COLONOSCOPY FLEXIBLE PROXIMAL DIAGNOSTIC Recall Screen for colon cancer Health Maintenance Due Date Last Done Comments Cologuard 1998 Sigmoidoscopy 1998 Fecal Occult Blood Test 03/26/2014 03/26/19 14, 11/20/2010, 11/09/2009 Colonoscopy 02/23/2023 02/24/2020, 07/2020, 07/16/2013, Additional history exists Colorectal Cancer Screening 02/23/2023 COVID-19 Vaccine ( season) 2023 12/03/2022, 11/29/2021, 03/14/2021, Additional history exists Diabetic Eye Exam 07/31/2023 07/30/2022, , 12/27/2020, Additional history exists Diabetic Foot Exam 07/31/2023 07/30/2022, 0 09/02/2019, 08/29/2018, Additional history exists HbA1c 10/25/2023 04/24/2023, 11/18, 05/30/2022, Additional history exists Mammogram 11/16/2023 11/15/2022, 10/20, 07/03/2021, Additional history exists GFR 01/03/2024 07/03/2023, 09/2023, 06/12/2023, Additional history exists CKD PHOS USE SMARTSET [id number] 03/21/2024 02/0 02/2023, 12/19/2022, 11/28/2022, Additional history exists Albumin/Creatinine Ratio 05/06/2024 024, 12/03/2022, 02/05/2022, Additional history exists TSH 06/06/2024 06/07/2023, 05/19, 06/28/2021, Additional history exists CKD HGB USE SMARTSET [id number] 06/18/202406/18, 06/19/2023, 05/07/2023, Additional history exists DTaP,Tdap,and Td Vaccines (3 - Td or Tdap) 10/14/2028 10/14/2018, 08/13/2007 DXA Scan 11/14/2028 11/14/2021, 11/14/2021 Hepatitis B Completed 09/01/1978, 03/21, 03/04/1978 Pneumococcal Vaccine: 65+ Years Completed 09/02/2019, 08/29/2018, 01/01/2005 Influenza Vaccine (FLU shot) Completed , 11/06/2021, 11/10/2020, Additional history exists GARDASIL-HPV IMMUNIZATION SERIES Aged Out No longer eligible based on patient's age to complete this topic MENINGOCOCCAL (MENACTRA/MENVEO) Aged Out No longer eligible based on patient's age to complete this topic documented as of this encounter Medical Devices Implanted Type Area Ground Crew Chief Device Identifier Shelf Expiration Date Model / Serial / Lot [employer] Suture Biocomposite - Sn/A - [id number] Implanted:Qty: 2 on 12/13/2021 by Moris Jimenez, DO at [facility] Left: Leg Lower [employer] 07/18/2024 [id number] / N/A / [id number] Vitoss Bbtrauma Foam Pack - [id number] - [id number] Implanted:Qty: 1 on 12/13/2021 by Moris Jimenez, DO at [facility] Left: Leg Lower MICHA : TRAUMA 01/15/2022 / [id number] / [id number] documented as of this encounter Procedures Procedure Name Priority Date/Time Associated Diagnosis Comments PULSE OX W/ REST/EXERCISE, MULTIPLE (OP) Routine 07/09/2023 11:03 AM EDT Chronic obstructive pulmonary disease with acute exacerbation (HCC) documented in this encounter Results * (ABNORMAL) PULSE OX W/ REST/EXERCISE, MULTIPLE (OP) (07/09/2023 11:03 AM EDT) Pulse Oximetry-Initia l Rest 100 Pulse Oximetry-During Exercise 82 Comment:Ranged from 90-82 wi thin 4 min of starting walking exercise Pulse Oximetry-Post Exercise 100 Comment:After applying 2L of oxygen & sitting for 5 min Pulse Oximetry-Post Nebulizer 07/09/2023 11:0 3 AM EDT Shara Ray MD MEDICINE documented in this encounter Visit Diagnoses Diagnosis Chronic obstructive pulmonary disease with acute exacerbation (HCC)- Primary Obstructive chronic bronchitis with exacerbation documented in this encounter Advance Directives * Full Code (Latest Code Status on File) Date Activated Date Inactivated Comments 12/12/2021 7:18 PM 12/20/2021 6:08 PM This order reflects the patients wishes and were consensually agreed upon. Question Answer Comments Discussion of Advance Directives occurred with: Patient Care Teams Manager Of Internal Relationship Specialty Start Date End Date Shara Ray MD [address] [place] [address] [place] [address] PCP - General Family Medicine 03/08/23 documented as of this encounter
--- OUTSIDE RECORDS SUMMARY | 2023-07-10 16:33 | External Medical Summary | Summary of Care ---
Author Name Unknown Organization [facility] Address [address] [facility] [place] [address] Phone [phone] Care Team Providers Care Software Developer Intern Name Role Phone Shara Ray MD Primary Care Provide r Reason for Visit * Reason Comments [facility]: Maintenance Encounter Details Date Type Department Care Team (Late st Contact Info) Description 07/08/2023 8:30 AM EDT Home Visit [facility], [facility] [address] [place] [address] Valentina Laws RN [address] [place] [address] Allergies Active Allergy Reactions Criticality Noted Date [...] as of this encounter (statuses as of 07/08/2023) Medications Medication Sig Dispensed Refills Start Date [...] AND BEFORE BEDTIME 200 Tablet 1 02/05/2023 Active Nystatin 172993 UNIT/ML Mouth/Throat SuspensionIndication s:Thrush Swish and swallow 5 mL in the morning and 5 mL at noon and 5 mL in the evening and 5 mL before bedtime. For thrush.. 240 mL 1 02/14/2023 Active Warfarin Sodium 2.5 MG Oral Tablet (Coumadin) Take 1 and 1/2 to 2 tablets by mouth daily as directed by anticoag clinic 180 Tablet 3 03/06/2023 Active Nitroglycerin [...] OR OTHER MEDS 100 Tablet 1 04/04/2023 5 Active Torsemide 100 MG Oral Tablet (Demadex)Indications [...] as of this encounter (statuses as of 07/08/2023) Active Problems Problem Noted Date Diagnosed Date Major depressive disorder, recurrent, moderate 0 04/03/2023 Last Assessment & Plan: Mood stable on current dose celexa Other persistent atrial fibrillation 04/03/2023 Last Assessment & Plan: Rate controlled Continue coumadin Atherosclerosis of [place] ronary artery without angina pectoris 04/03/2023 [...] of leg, left, subsequent encounter 09/2021 Overview: [facility] ER ulstrasound shows hematoma calf, INR 4.2, [...] in the Comments) Remote Patient Monitoring Vendor: [facility] Device(s): Connected Scale Self - Management Plan [...] & Plan: Symptoms well controlled on 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 Rashel Sales [facility] Complicated UTI (urinary tract infection) 12/20/2021 05/17/2022 [...] Overview: Per CKD protocol #1 [employer] Other*[id number] 06/02/2010 04/18/2011 Overview: PROJECT: #[id number], SPONSOR: [employer], PI: Adolfo De Jesus MD SUMMARY: Observational [...] can be closed. CONTACT: Roberto Carlos Huertas, Brace Maker Type 2 diabetes mellitus wit h hemoglobin A1c goal of less than 7.0% 04/24/2010 08/29/2018 Overview: ICD-10 update of inactive term ACTIVE CASE MANAGEMENT Kassie Anthony RN [id number] 05/10/19 10 12/05/2009 ADVANCE DIRECTIVE INFORMATION 05/09/2009 [...] as of this encounter (statuses as of 07/08/2023) Immunizations Name Administration Dates Next Due COVID-19 [...] on file documented as of this encounter Last Filed Vital Signs Vital Sign Reading Time Taken Comments Blood Pressure 128/62 07/08/2023 8:59 AM EDT Pulse 80 07/08/2023 8:59 AM EDT Temperature 36.6 C (97.9 F) 07/08/2023 8:59 AM ED T Respiratory Rate 18 07/08/2023 8:59 AM EDT Oxygen Saturation 97% 07/08/2023 8:59 AM EDT Inhaled Oxygen Concentration - - Weight - - Height - - Body Mass Index - - documented in this encounter Functional Status Functional Status Response [...] No 12/12/2021 documented as of this encounter Progress Notes * Valentina Laws RN - 07/08/2023 8:40 AM EDT Images from the original note were not included. [facility] [employer] Visit Date: 07/08/2023 Time: 8:44 AM Name: Abdi Bowling : 1955 Current Concerns: Patient seen for follow up- Afib, CHF, DM2, H/O falls Reports overall doing well. Followed closely by cardiology/nephrology Most recent lab- GFR- 25 Creatinine- 2.[address] Molina. VS wnl Lungs clear but diminished Sob with exertion- baseline Trace pitting edema BLE Voiding without difficutly Bowels wnl- Appetite good Taking fluids Physical Exam: BP 128/62 (BP Site: Left Arm, BP Position: Sitting, BP Cuff Size: Regular) | Pulse 80 | Temp 36.6 C (97.9 F) (Tympanic) | Resp 18 | SpO2 97% Pain 5- Butrans patch/Tramadol breakthrough Physical Exam Constitutional: Appearance: Normal appearance. Cardiovascular: Rate and Rhythm: Normal rate. Rhythm irregular. Pulses: Normal pulses. Pulmonary: Effort: Pulmonary effort is normal. Breath sounds: Normal breath sounds. Abdominal: General: Bowel sounds are normal. Palpations: Abdomen is soft. Musculoskeletal: General: Normal range of motion. Right lower leg: Edema present. Left lower leg: Edema present. Skin: General: Skin is warm and dry. Capillary Refill: Capillary refill takes 2 to 3 seconds. Neurological: General: No focal deficit present. Mental Status: She is alert and oriented to person, place, and time. Psychiatric: Mood and Affect: Mood normal. Behavior: Behavior normal. Problems/Symptoms: Review of Systems Constitutional: Negative. HENT: Negative. Respiratory: Positive for shortness of breath. Cardiovascular: Positive for leg swelling. Gastrointestinal: Negative. Genitourinary: Negative. Musculoskeletal: Positive for gait problem. Skin: Negative. Hematological: Negative. Psychiatric/Behavioral: Negative. Medication Reconciliation: (See medication list) Does patient take medications as ordered: Yes Patient Well Being: PHQ2/9: Myc Visit Accident Related Question Question 06/24/2023 8:38 AM EDT - Filed by Patient Is this visit related to an accident? (i.e work, motor vehicle) No Within normal limits [facility]-10 Completed this Visit: No. No falls since last visit Advanced Care Planning: Living Will. and Healthcare POA. Patient's Goals of Care: Stay out of the hospital Want to go to the [place] games this year Pain control Get my kidneys straightened out Reinforcement/Education: Reviewed HF symptom monitoring: -Weigh self daily in am, post-void and record -Do not add salt to food, avoid foods high in sodium -Limit fluids to 2 liters per day -Report the following: ->2 lb weight gain in one day or 5 lbs in a week to PCP -increased edema in feet, abdomen or hands -increased SOB and cough, especially if at night -increased fatigue or vertigo Educated on home safety: Create a fall proof home Clear floors of clutter, loose wires, throw rugs, and cords. Make sure halls, stairways, and entrances are well lit. Install a nightlight in your bedroom, hallway and bathroom. Install grab bars or handrails in the bathroom and on stairs. Use a non-skid tub/shower mat. Avoid climbing on a chair; instead use a step stool with a high handrail. Keep sidewalks and steps in good repair Keep steps and sidewalks free of snow and ice. Using aids to support and prevent falls If you have poor balance or have fallen in the past, consider additional support such as a cane or walker. Use a cane with good support and that is the proper length for you. Use a walker if a cane doesnt provide enough support. Avoid medications that increase the risk of falling by causing dizziness, change in sensation or slowed reflexes. Certain medicines may cause falls - blood pressure pills, heart medicines, water pills, or sleepingpills. Be sure to understand each medicine that you are taking and any side effects that may occur. Improve your balance and flexibility with muscle strengthening exercises. Ask your health care provider for some exercises that will be right for you. Reinforced medication regimen. Timing., Dosing., and Purspose. Treatment/Plan: Fluid restriction 2-3L daily Continue medications as prescribed Keep all upcoming MD appointments Low na diet [facility] scales- weigh daily Elevate ble- edema Fall precautions- walker RN CM follow up in 7 weeks Home Interventions Provided: Consulted PCP/Specialist Reinforced current Plan of Care, including self-management and medication regimen Patient's 'Red Flags': Falls Increase swelling LE, Increase SOB Weight gain 2-3lb/day or 3-5 lb week Patient Needs to Remember: Call [facility] with any medical concerns/ red flags Referrals Needed: N/a Follow Up: Is there cellular connectivity/connectivity in the home? Yes Does the patient have internet in the home? Yes Patient encouraged to call the intake phone number for all urgent but not emergent issues. Is the patient new to [facility] within the last 30 days? No, Assess appropriateness for upcoming telehealth visits. Cancel telehealth visits & schedule home visit with care trampoline team coach(s)as indicated. Provider is in agreement with Plan of Care: Yes Scheduled to follow up with patient in 7 weeks. Valentina Stallworth RN 07/08/2023 8:44 AM documented in this encounter Plan of Treatment Upcoming Encounters Date Type Department Care Team (Late st Contact Info) Description 07/09/2023 11:00 AM EDT Nurse Only Ancillary [address] [place] [address] Nelly Nurse [address] [place] [address] 07/10/2023 7:05 AM EDT Laboratory Lab Mobile Phlebotomy [facility] [address] [place] [address] [facility], [facility] Mobile Home Draw [address] [place] [address] 07/10/2023 6:00 PM EDT Anticoagulation Pharmacy Call Center [phone] [place] [address] [facility] [address] [facility] [place] [address] 08/05/2023 1:00 PM EDT Nurse Only Ancillary [place] [address] [place] [address] Nurse Andriy [address] [place] [address] 09/06/2023 8:30 AM EDT Home Visit [facility], [facility] [place] [address] Valentina Lwas, TANISHA [address] [facility] [place] [address] 09/20/2023 8:00 AM EDT Laboratory Lab Mobile Phlebotomy [facility] [address] [place] [address] [facility] Mobile Home Draw [address] [place] [address] 09/24/2023 11:30 AM EDT Office Visit Nephrology, [facility] [address] [facility] [place] [address] ZeKary bliss PA-C [address] [facility] [place] [address] 10/22/2023 11:00 AM EDT Office Visit Cardiology, [facility] [place] [address] Hadley Molina MD [address] [place] [address] 12/20/2023 8:00 AM EDT Laboratory Lab Mobile Phlebotomy [facility] [address] [place] [address] [facility] Mobile Home Draw [address] [place] [address] 12/26/2023 2:00 PM EST Office Visit Hematology/Oncology [facility] [address] [facility] [place] [id number] Bouchra Del Cid CRNP [address] [place] [address] 01/17/2024 8:00 AM EST Office Visit Family [address] [place] [phone] Shara Ray MD [address] [place] [address] [place] [address] 03/27/2024 8:00 AM EST Laboratory Lab Mobile Phlebotomy [facility] [address] [place] [address] [facility] Mobile Home Draw [address] [place] [address] 06/09/2024 1:30 PM EDT Office Visit Allergy/Immunology [facility] [place] [address] [place] [address] Rae Ramirez PA-C [address] [place] [address] 06/24/2024 1:40 PM EDT Office Visit Family Medicine [address] [phone] Shara Ray MD [address] [place] [address] [place] [address] Scheduled Procedures Name Priority Associated Diagnoses Date/Ti [...] Additional history exists CKD PHOS USE SMARTSET 18103 03/21/2024 020 02/2023, 12/19/2022, 11/28/2022, Additional history exists Albumin/Creatinine Ratio 05/06/2024 024, 12/03/2022, 02/05/2022, Additional history exists TSH 06/06/2024 06/07/2023, 05/19, 06/28/2021, Additional history exists CKD HGB USE SMARTSET 88461 06/18/202406/18, 06/19/2023, 05/07/2023, Additional history exists DTaP,Tdap,and [...] this encounter Medical Devices Implanted Type Area Facilitator Device Identifier Shelf Expiration Date Model / Serial / Lot [employer] - Sn/A - [id number] Implanted:Qty: 2 on 12/13/2021 by Moris Jimenez DO at OR [facility] Left: Leg Lower [employer] 07/18/2024 [id number] / N/A / [id number] [employer] Bbtrauma Foam Pack - [id number] - [id number] Implanted:Qty: 1 on 12/13/2021 by Moris Jimenez DO at OR [facility] Left: Leg Lower MICHA : TRAUMA 01/15/2022 [id number] / [id number] / [id number] documented as of this encounter Advance Directives * Full Code (Latest Code Status on File) Date Activated Date Inactivated Comments 12/12/2021 7:18 PM 12/20/2021 6:08 PM This order reflects the patients wishes and were consensually agreed upon. Question Answer Comments Discussion of Advance Directives occurred with: Patient Care Teams Software Developer Intern Relationship Specialty Start Date End Date Shara Ray MD [address] [place] [address] [place] [address] PCP - General Family Medicine 03/08/23 documented as of this encounter
--- OUTSIDE RECORDS SUMMARY | 2023-07-10 16:34 | External Medical Summary ---
Author Name Unknown Address Unknown Organization K01:[facility] - [address] [place] [address] Laboratory Report Ordering Provider Test Date Status TOÑA HONG 07/03/2023 09:42:00 Final Observation Date Value Abnormality Reference (Units ) Status BUN 07/03/2023 09:42:00 43 Above high normal 6-20 (mg/dL) Final Creatinine 07/03/2023 09:42:00 2.1 Above high normal 0.5-1.0 (mg/dL) Final Glomerular filtration rate/1.73 sq M.predicted [Volume Rate/Area] in Serum, Plasma or Blood by Creatinine-based formula (CKD-EPI) 07/03/2023 09:42:00 25 Below low normal >=60 (mL/min) Final eGFR is calculated based on the CKD-EPI 2020 equation Sodium 07/03/2023 09:42:00 128 Below low normal 135 -146 (mmol/L) Final Potassium 07/03/2023 09:42:00 3.2 Below low normal 3.5 -5.1 (mmol/L) Final Cl 07/03/2023 09:42:00 85 Below low normal 98- 107 (mmol/L) Final CO2 07/03/2023 09:42:00 31 22-32 (mmo l/L) Final Anion gap 07/03/2023 09:42:00 12 7-15 (mmol /L) Final Glucose 07/03/2023 09:42:00 132 Above high normal 70 -120 (mg/dL) Final Calcium 07/03/2023 09:42:00 10.0 8.4-10.2 ( mg/dL) Final Performing Location [facility] - [address] [place] [address]
--- OUTSIDE RECORDS SUMMARY | 2023-07-10 16:34 | External Medical Summary | Summary of Care ---
Author Name Unknown Organization [facility] Address [address] [facility] [place] [address] Phone [phone] Care Team Providers Care Commercial Engineer Name Role Phone Shara Ray MD Primary Care Provide r Reason for Visit * Reason Onset Date Comments Test Results 07/05/2023 Encounter Details Date Type Department Care Team (Late st Contact Info) Description 07/05/2023 Telephone Cardiology, [facility] [address] [place] [address] Hadley Molina MD [address] [place] [address] Test Results Allergies Active Allergy Reactions Criticality Noted Date [...] as of this encounter (statuses as of 07/05/2023) Medications Medication Sig Dispensed Refills Start Date End Date Status acetaminophen (TYLENOL) 500 MG Tablet Take 1 Tablet by mouth every 6 hours as needed for Pain. 0 Active milk of magnesia (MOM) 400 MG/5ML suspension Take by mouth daily as needed for Constipation. 0 Active Benzonatate 100 MG Oral Capsule (Tessalon Perles)Indications: Cough Take by mouth 1 Capsule as needed in the morning AND 1 Capsule as needed at noon AND 1 Capsule as needed in the evening for Cough. 30 Capsule 1 2 Active Magnesium Glycinate 665 MG Oral CapsuleIndications: Restless legs syndrome One daily 100 Capsule 1 2 Active Omeprazole 20 MG Oral Capsule Delayed Release (PriLOSEC)Indicatio ns:Encounter for long-term (current) use of medications,Gastroe sophageal reflux disease with esophagitis Take 1 Capsule by mouth in the morning. 100 Capsule 1 3 Active Estrogens Conjugated 0.625 MG/GM Vaginal Cream (Premarin)Indicatio ns:Postmenopausal atrophic vaginitis ADMINISTER INTO THE VAGINA AT BEDTIME DIRECTED 90 g 2 3 08/14/19 24 Active Albuterol Sulfate HFA 108 (90 Base) MCG/ACT Inhalation Aerosol Solution INHALE TWO PUFFS BY MOUTH EVERY MORNING - TWO PUFFS EVERY EVENING - AND EVERY 4 HOURS NEEDED FOR WORSENING COUGH, CHEST TIGHTNESS, FOR WHEEZING OR FOR SHORTNESS OF BREATH 54 g 2 3 08/13/19 24 Active Folic Acid 1 MG Oral TabletIndications:M ild protein-calorie malnutrition (HCC) TAKE ONE TABLET BY MOUTH EVERY MORNING 100 Tablet 1 3 07/21/19 24 Active rOPINIRole HCl 2 MG Oral Tablet (Requip)Indications :Restless legs syndrome Take 1 Tablet by mouth in the morning and 1 Tablet at noon and 1 Tablet before bedtime. 300 Tablet 3 3 Active Additional Information Patient taking differently:2 mg OralHS, Reported on 03/06/2023 Lidocaine HCl 4 % External Solution Apply topically to affected area once for 1 dose. Apply to mouth ulcers as needed 50 mL 0 3 Active Sucralfate 1 GM/10ML Oral Suspension (Carafate) TAKE 10 ML BY MOUTH NEEDED IN THE MORNING AND 10 ML NEEDED AT NOON AND 10 ML NEEDED IN THE EVENING AND 10 ML NEEDED BEFORE BEDTIME. 420 mL 1 3 Active Metoprolol Tartrate 25 MG Oral Tablet (Lopressor) TAKE ONE TABLET BY MOUTH TWICE A DAY IN THE MORNING AND BEFORE BEDTIME 200 Tablet 1 3 02/05/20 24 Active Nystatin 472457 UNIT/ML Mouth/Throat SuspensionIndicatio ns:Thrush Swish and swallow 5 mL in the morning and 5 mL at noon and 5 mL in the evening and 5 mL before bedtime. For thrush.. 240 mL 1 3 Active Warfarin Sodium 2.5 MG Oral Tablet (Coumadin) Take 1 and 1/2 to 2 tablets by mouth daily as directed by anticoag clinic 180 Tablet 3 4 Active Nitroglycerin 0.4 MG Sublingual Tablet Sublingual (Nitrostat)Indicati ons:Old myocardial infarct,Atrial fibrillation (HCC),HTN, goal to be determined PLACE 1 TABLET UNDER THE TONGUE EVERY 5 MINUTES UP TO 3 DOSES NEEDED FOR CHEST PAIN. IF NO RELIEF CALL 911 OR GO TO ER 75 Tablet 0 4 Active Additional Information Patient not taking.Reported on 06/21/2023 traMADol HCl 50 MG Oral Tablet (Ultram)Indications :Generalized osteoarthritis,Post -traumatic osteoarthritis of right knee,Closed nondisplaced fracture of left tibial tuberosity with routine healing Take 1 Tablet by mouth 2 times a day as needed for Pain, Severe. 60 Tablet 0 4 Active Additional Information Patient taking differently:50 mg OralQID(Non-Specified), Reported on 06/21/2023 Combivent Respimat 20-100 MCG/ACT Inhalation Aerosol Solution (Ipratropium-Albute rol) inhale 1 puff four times daily As Needed for Shortness Of Breath 12 g 1 4 Active Ipratropium-Albuter ol 0.5-2.5 (3) MG/3ML Inhalation Solution (Duoneb) inhale 1 vial (3 mL) via nebulizer four times daily As Needed for shortness of breath or wheezing 1080 mL 2 4 Active Citalopram Hydrobromide 10 MG Oral Tablet (CeleXA)Indications :BOBBY (generalized anxiety disorder) TAKE ONE TABLET BY MOUTH EVERY MORNING 100 Tablet 1 4 04/03/19 25 Active Levothyroxine Sodium 100 MCG Oral Tablet (Levoxyl)Indication s:Hypothyroidism, postablative TAKE ONE TABLET by MOUTH DAILY FIRST THING IN THE MORNING AT LEAST 30 MINUTES PRIOR TO BREAKFAST OR OTHER MEDS 100 Tablet 1 4 04/03/19 25 Active Torsemide 100 MG Oral Tablet (Demadex)Indication s:Acute on chronic right-sided heart failure (HCC),S/P mitral valve replacement,Permane nt atrial fibrillation (HCC) Take 0.5 Tablets by mouth in the morning. 45 Tablet 3 4 Active Rosuvastatin Calcium 10 MG Oral Tablet (Crestor) Take 1 Tablet by mouth in the morning. 100 Tablet 1 4 Active Metoclopramide HCl 10 MG Oral Tablet (Reglan)Indications :Nausea TAKE ONE TABLET BY MOUTH EVERY MORNING 30 MINUTES BEFORE A MEAL 90 Tablet 1 4 05/24/19 25 Active Azelastine HCl 0.1 % Nasal Solution (Astelin) ADMINISTER INTO NOSTRIL TWO SPRAYS IN THE MORNING AND TWO SPRAYS BEFORE BEDTIME 30 mL 2 4 06/04/19 25 Active Buprenorphine 5 MCG/HR Transdermal Patch Weekly (Butrans) Apply 1 patch to skin once a week as directed 0 4 Active Nebulizer/Tubing/Mo uthpiece Kit Use as directed 1 Kit 1 4 Active oxygen IN GAS Use 2 L/min(Oxygen) as directed at bedtime. Ordered by pulmonary in Mar 2023. 0 Active valACYclovir HCl 1 GM Oral Tablet (Valtrex)Indication s:Cold sore Take 2 Tablets by mouth in the morning and 2 Tablets before bedtime. for cold sores. 4 Tablet 11 4 Active Spironolactone 25 MG Oral Tablet (Aldactone)Indicati ons:Chronic heart failure with preserved ejection fraction (HCC) Take one-half Tablet by mouth in the morning. 45 Tablet 1 4 Active Empagliflozin 10 MG Oral Tablet (Jardiance) Take 1 Tablet by mouth in the morning. 90 Tablet 3 4 Active D3-1000 25 MCG (1000 UT) Oral Capsule (Cholecalciferol) Take 1 Capsule by mouth every other day. 0 4 Active metOLazone 5 MG Oral Tablet (Zaroxolyn) Take one tablet 30 minutes prior to torsemide in the morning on days directed 12 Tablet 5 4 07/05/19 24 Discontinued documented as of this encounter (statuses as of 07/05/2023) Active Problems Problem Noted Date Diagnosed Date Major depressive disorder, recurrent, moderate 0 04/03/2023 Last Assessment & Plan: Mood stable on current dose celexa Other persistent atrial fibrillation 04/03/2023 Last Assessment & Plan: Rate controlled Continue coumadin Atherosclerosis of [place] ronary artery without angina pectoris 04/03/2023 [...] of leg, left, subsequent encounter 09/2021 Overview: [facility] ER ulstrasound shows hematoma calf, INR 4.2, [...] in the Comments) Remote Patient Monitoring Vendor: [facility] Device(s): Connected Scale Self - Management Plan [...] & Plan: Symptoms well controlled on omeprazole joint terminal attack controller current use of anticoagulant therapy 0 05/10/2004 Overview: ICD-10 update of inactive term Rheumatic heart disease 03/05/2002 Old myocardial infarct 01/02/2001 Last Assessment & Plan: Continue Crestor 20 mg daily S/P mitral valve replacement Last Assessment & Plan: Chronic AC coumadin Atherosclerosis of [place] ronary artery of [place] heart without angina pectoris documented as of this encounter (statuses as of 07/05/2023) Resolved Problems Problem Noted Date Diagnosed Date [...] IM/IV Chest Xray Additional Comments: Followed by radio interference trouble shooter - Dr. Rashel Sales [facility] Complicated UTI (urinary tract infection) 12/20/2021 05/17/2022 [...] Overview: Per CKD protocol #1 [employer] Other*[id number] 06/02/2010 04/18/2011 Overview: PROJECT: #[id number], SPONSOR: [employer], PI: Adolfo De Jesus MD [...] can be closed. CONTACT: Roberto Carlos Huertas, Support Team Member Type 2 diabetes mellitus wit h hemoglobin [...] as of this encounter (statuses as of 07/05/2023) Immunizations Name Administration Dates Next Due COVID-19 [...] No 12/12/2021 documented as of this encounter Miscellaneous Notes * Telephone Encounter - Bouchra Peres CMA - 07/05/2023 11:06 AM EDT MyG sent to patient. Metolazone removed from patient's medication list. * Telephone Encounter - Bouchra Peres CMA - 07/05/2023 11:05 AM EDT ----- Message from Hadley Molina MD sent at 07/04/2023 2:42 PM EDT ----- Renal function decreased slightly with lower sodium. No further metolazone documented in this encounter Plan of Treatment Upcoming Encounters Date Type Department Care Team (Late st Contact Info) Description 07/08/2023 8:30 AM EDT [facility] [place] [facility] [place] [place] [address] Valentina Laws, TANISHA [address] [place] [address] 07/10/2023 7:05 AM EDT Laboratory Lab Mobile Phlebotomy [facility] [address] [place] [address] [facility], [facility] Mobile Home Draw [address] [place] [address] 07/10/2023 6:00 PM EDT Anticoagulation Pharmacy Call Center [address] [place] [address] Ccps, [facility] [address] [place] [address] 08/05/2023 1:00 PM EDT Nurse Only Ancillary [address] [place] [address] [place], Nurse [address] [place] [address] 09/20/2023 8:00 AM EDT Laboratory Lab Mobile Phlebotomy [facility] [address] [place] [address] [facility], [facility] Mobile Home Draw [address] [place] [address] 09/24/2023 11:30 AM EDT Office Visit Nephrology, [facility] [address] [place] [address] [address] Kary Pena PA-C [address] [address] [address] 10/22/2023 11:00 AM EDT Office Visit Cardiology, [facility] [address] [place] [address] Hadley Molina MD [address] [place] [address] 12/20/2023 8:00 AM EDT Laboratory Lab Mobile Phlebotomy [facility] [address] [place] [address] [facility], [facility] Mobile Home Draw [address] [place] [address] 12/26/2023 2:00 PM EST Office Visit Hematology/Oncology [facility] [address] [facility] [place] [phone] Bouchra Del Cid CRNP [address] [place] [address] 01/17/2024 8:00 AM EST Office Visit [address] [phone] Shara Ray MD [address] [place] [address] [place] [address] 03/27/2024 8:00 AM EST Laboratory Lab Mobile Phlebotomy [facility] [address] [place] [address] [facility], [facility] Mobile Home Draw [address] [place] [address] 06/09/2024 1:30 PM EDT Office Visit Allergy/Immunology [facility] [address] [facility] [place] [address] Rae Ramirez PA-C [address] [facility] [place] [address] 06/24/2024 1:40 PM EDT Office Visit Family Medicine [address] [place] [phone] Shara Ray MD [address] [place] [address] [place] [address] Scheduled Procedures Name Priority Associated Diagnoses Date/Ti me COLONOSCOPY FLEXIBLE PROXIMAL DIAGNOSTIC Recall Screen for colon cancer Health Maintenance Due Date Last Done Comments Cologuard 1998 Sigmoidoscopy 1998 Fecal Occult Blood Test 03/26/2014 03/26/19 14, 11/20/2010, 11/09/2009 Colonoscopy 02/23/2023 02/24/2020, 07/2020, 07/16/2013, Additional history exists Colorectal Cancer Screening 02/23/2023 Diabetic Eye Exam 07/31/2023 07/30/2022, , 12/27/2020, Additional history exists Diabetic Foot Exam 07/31/2023 07/30/2022, 0 09/02/2019, 08/29/2018, Additional history exists HbA1c 10/25/2023 04/24/2023, 11/18, 05/30/2022, Additional history exists Mammogram 11/16/2023 11/15/2022, 10/20, 07/03/2021, Additional history exists GFR 01/03/2024 07/03/2023, 09/2023, 06/12/2023, Additional history exists CKD PHOS USE SMARTSET 00593 03/21/2024 02/0 02/2023, 12/19/2022, 11/28/2022, Additional history exists Albumin/Creatinine Ratio 05/06/2024 024, 12/03/2022, 02/05/2022, Additional history exists TSH 06/06/2024 06/07/2023, 05/19, 06/28/2021, Additional history exists CKD HGB USE SMARTSET 62198 06/18/202406/18, 06/19/2023, 05/07/2023, Additional history exists DTaP,Tdap,and Td Vaccines (3 - Td or Tdap) 10/14/2028 10/14/2018, 08/13/2007 DXA Scan 11/14/2028 11/14/2021, 11/14/2021 Hepatitis B Completed 09/01/1978, 03/21, 03/04/1978 Pneumococcal Vaccine: 65+ Years Completed 09/02/2019, 08/29/2018, 01/01/2005 Influenza Vaccine (FLU shot) Completed , 11/06/2021, 11/10/2020, Additional history exists COVID-19 Vaccine Completed 12/03/2022, 01/2022, 03/14/2021, Additional history exists GARDASIL-HPV IMMUNIZATION SERIES Aged Out No longer eligible based on patient's age to complete this topic MENINGOCOCCAL (MENACTRA/MENVEO) Aged Out No longer eligible based on patient's age to complete this topic documented as of this encounter Medical Devices Implanted Type Area Cash Management Clerk Device Identifier Shelf Expiration Date Model / Serial / Lot [employer] S[employer]ocomposite - Sn/A - [id number] Implanted:Qty: 2 on 12/13/2021 by Moris Jimenez DO at OR [facility] Left: Leg Lower [employer] 07/18/2024 [id number] / N/A / [id number] [employer] Bbtrauma Foam Pack - [id number] - [id number] Implanted:Qty: 1 on 12/13/2021 by Moirs Jimenez DO at OR [facility] Left: Leg Lower MICHA : TRAUMA 01/15/20226295-4898 / [id number] / [id number] documented as of this encounter Advance Directives Latest Code Status on File Code Status Date Activated Date Inactivated Comments Full Code 12/12/2021 7:18 PM 12/20/2021 6:08 PM This order reflects the patients wishes and were consensually agreed upon. Question Answer Comments Discussion of Advance Directives occurred with: Patient Care Teams Commercial Engineer Relationship Specialty Start Date End Date Shara Ray MD [address] [place] [address] [place] [address] PCP - General Family Medicine 03/08/23 documented as of this encounter
--- OUTSIDE RECORDS SUMMARY | 2023-07-10 16:34 | External Medical Summary | Summary of Care ---
Author Name Unknown Organization [facility] Address [address] [facility] [place] [address] Phone [phone] Care Team Providers Care Crop Or Grain Farmer Name Role Phone Shara Ray MD Primary Care Provide r Reason for Visit * Reason Comments Dosage Adjustment Via Phone (anticoag Cl inic) Encounter Details Date Type Department Care Team (Latest Contact Info) Description 07/04/2023 6:00 AM EDT Anticoagulation Pharmacy Call Center [phone] [place] [address] [facility] [address] [place] [address] oil heaterman current use of anticoagulant therapy*; History of TIA (transient ischemic attack); S/P mitral valve replacement Allergies Active Allergy Reactions Criticality Noted Date [...] as of this encounter (statuses as of 07/04/2023) Medications Medication Sig Dispensed Refills Start Date [...] mouth ulcers as needed 50 mL 0 12/06/2022 Active Sucralfate 1 GM/10ML Oral Suspension [...] BEDTIME 200 Tablet 1 02/05/2023 Active Nystatin 064710 UNIT/ML Mouth/Throat SuspensionIndication s:Thrush Swish and swallow [...] OR GO TO ER 75 Tablet 0 03/08/2023 Active Additional Information Patient not taking.Reported on 06/21/2023 traMADol HCl 50 MG Oral Tablet (Ultram)Indications: Generalized osteoarthritis,Post- traumatic osteoarthritis of right knee,Closed nondisplaced fracture of left tibial tuberosity with routine healing Take 1 Tablet by mouth 2 times a day as needed for Pain, Severe. 60 Tablet 0 03/08/2023 Active Additional Information Patient taking differently:50 [...] skin once a week as directed 0 05/31/2023 Active Nebulizer/Tubing/Manju thpiece Kit Use as [...] the morning. 90 Tablet 3 06/21/2023 Active metOLazone 5 MG Oral Tablet (Zaroxolyn) Take one tablet 30 minutes prior to torsemide in the morning on days directed 12 Tablet 5 06/21/2023 Active Additional Information Patient taking differently: 2.5 mg Oral QWEEK, Take one tablet 30 minutes prior to torsemide in the morning on days directed, Reported on 07/02/2023 D3-1000 25 MCG (1000 UT) Oral Capsule (Cholecalciferol) Take 1 Capsule by mouth every other day. 0 07/02/2023 Active documented as of this encounter (statuses as of 07/04/2023) Active Problems Problem Noted Date Diagnosed Date Major depressive disorder, recurrent, moderate 0 04/03/2023 Last Assessment & Plan: Mood stable on current dose celexa Other persistent atrial fibrillation 04/03/2023 Last Assessment & Plan: Rate controlled Continue coumadin Atherosclerosis of [place] co ronary artery without angina pectoris 04/03/2023 [...] of leg, left, subsequent encounter 09/2021 Overview: [facility] ER ulstrasound shows hematoma calf, INR 4.2, [...] in the Comments) Remote Patient Monitoring Vendor: [facility] Device(s): Connected Scale Self - Management Plan [...] & Plan: Symptoms well controlled on omeprazole oil heaterman current use of anticoagulant therapy 0 05/10/2004 Overview: ICD-10 update of inactive term Rheumatic heart disease 03/05/2002 Old myocardial infarct 01/02/2001 Last Assessment & Plan: Continue Crestor 20 mg daily S/P mitral valve replacement Last Assessment & Plan: Chronic AC coumadin Atherosclerosis of [place] co ronary artery of [place] heart without angina pectoris documented as of this encounter (statuses as of 07/04/2023) Resolved Problems Problem Noted Date Diagnosed Date [...] IM/IV Chest Xray Additional Comments: Followed by silk hanger - Dr. Rashel Sales [facility] Complicated UTI (urinary tract infection) 12/20/2021 05/17/2022 [...] Overview: Per CKD protocol #1 ORBIT-[employer] Research Other*[id number] 06/02/2010 04/18/2011 Overview: PROJECT: #[id number], SPONSOR: Aileen, PI: Adolfo De Jesus MD [...] can be closed. CONTACT: Roberto Carlos Huertas, Neuro Psych Sales Specialist Type 2 diabetes mellitus wit h hemoglobin A1c goal of less than 7.0% 04/24/2010 08/29/2018 Overview: ICD-10 update of inactive term ACTIVE CASE MANAGEMENT Kassie Anthony RN [phone] 05/10/19 10 12/05/2009 ADVANCE DIRECTIVE INFORMATION 05/09/2009 04/26/2021 Overview: No, Advance Directive brochure given to patient. Dyslipidemia, goal LDL below 100 02/03/2009 09/24/2013 Overview: Per Lipid Taxonomy. Other abnormal glucose 03/13/200509/24 Mixed dyslipidemia 04/08/200202/03/ 9 Overview: Per Lipid Taxonomy. Anticoagulation management [...] as of this encounter (statuses as of 07/04/2023) Immunizations Name Administration Dates Next Due COVID-19 [...] as of this encounter Progress Notes * Brianna Whiteside CPhT - 07/04/2023 10:57 AM EDT Contacts Type Contact Phone/Fax 07/04/2023 10:51 AM EDT Phone (Outgoing) Abdi Bowling (Self) [phone] (M) Subjective Patient Findings Negatives: Signs/symptoms of bleeding, Change in health, Change in activity, Upcoming invasive procedure, Missed doses, Extra doses, Change in medications, Change in diet/appetite, Bruising Advised patient to contact Anticoagulation Clinic if any unusual bruising or bleeding, recent illness, changes in medication, or questions/concerns. PT/INR results, Coumadin dose instructions, and next PT/INR date communicated as noted by Pharmacist: Yes Brianna Whiteside CPhT 07/04/2023, 10:57 AM * Kirby Gates RPh - 07/04/2023 8:23 AM EDT Coumadin Clinic (region specific) Objective Current Warfarin Dose As of 07/04/2023 Warfarin maintenance plan: 7.5 mg (2.5 mg x 3) every Mon, Sat; 5 mg (2.5 mg x 2) all other days INR Result As of 07/04/2023 INR goal: 3.0-3.5 INR used for dosin.6 (07/03/2023) Assessment & Plan Warfarin Plan As of 07/04/2023 Full warfarin instructions: 07/03: 3.75 mg; Otherwise 7.5 mg every Mon, Sat; 5 mg all other days Next INR check: 07/10/2023 Sent myG Repeat PT/INR in 1 week(s) Weekly dose: not changed Additional Dosing Information: Description GML WedFri, prefers Wed ([facility], [facility], or [facility]) Please also send myG Tech to contact patient with dose instructions as noted. Kirby Gates RPh 07/04/2023, 8:23 AM documented in this encounter Plan of Treatment Upcoming Encounters Date Type Department Care Team (Late st Contact Info) Description 07/08/2023 8:30 AM EDT Home Visit [facility], [facility] [place] [address] Valentina Laws, TANISHA 132 [facility] [place] [address] 07/10/2023 7:05 AM EDT Laboratory Lab Mobile Phlebotomy [facility] [address] [facility] [place] [address] [facility], Gml Mobile Home Draw [address] [place] [employer] [place] [address] 07/10/2023 6:00 PM EDT Anticoagulation Pharmacy Call Center WB [address] [facility] [place] [address] [facility], [place] [facility] 58 60 [facility] [place] [address] 08/05/2023 1:00 PM EDT Nurse Only Ancillary [address] [place] [address] [place], Nurse [address] [place] [address] 09/20/2023 8:00 AM EDT Laboratory Lab Mobile Phlebotomy [facility] [address] [place] [address] [facility], [facility] Mobile Home Draw [address] [place] [address] 09/24/2023 11:30 AM EDT Office Visit Nephrology, [facility] 200 [facility] [place] [address] Zemaitis, Kary Abraham PA-C 200 [facility] [place] [address] 10/22/2023 11:00 AM EDT Office Visit Cardiology, [facility] [address] [place] [address] Hadley Molina MD 132 [place] [address] 12/20/2023 8:00 AM EDT Laboratory Lab Mobile Phlebotomy [facility] [address] [place] [address] [facility] Mobile Home Draw [address] [place] [address] 12/26/2023 2:00 PM EST Office Visit Hematology/Oncology [facility] [address] [place] [address] Bouchra Del Cid CRNP [address] [place] [address] 01/17/2024 8:00 AM EST Office Visit Family [address] [phone] Shara Ray MD [address] [place] [address] [place] [address] 03/27/2024 8:00 AM EST Laboratory Lab Mobile Phlebotomy [facility] [address] [place] [address] [facility] Mobile Home Draw [address] [place] [address] 06/09/2024 1:30 PM EDT Office Visit Allergy/Immunology [facility] 200 [facility] [place] [address] Rae Ramirez PA-C 200 [facility] [place] [address] 06/24/2024 1:40 PM EDT Office Visit Family [address] [phone] Shara Ray MD [address] [place] [address] [place] [address] Scheduled Procedures Name Priority Associated Diagnoses Date/Ti me COLONOSCOPY FLEXIBLE PROXIMAL DIAGNOSTIC Recall Screen for colon cancer Health Maintenance Due Date Last Done Comments Cologuard 1998 Sigmoidoscopy 1998 Fecal Occult Blood Test 03/26/2014 03/26/19 14, 11/20/2010, 11/09/2009 Colonoscopy 02/23/2023 02/24/2020, 01/0 07/2020, 07/16/2013, Additional history exists Colorectal Cancer Screening 02/23/2023 Diabetic Eye Exam 07/31/2023 07/30/2022, , 12/27/2020, Additional history exists Diabetic Foot Exam 07/31/2023 07/30/2022, 0 09/02/2019, 08/29/2018, Additional history exists HbA1c 10/25/2023 04/24/2023, 11/18, 05/30/2022, Additional history exists Mammogram 11/16/2023 11/15/2022, 10/20, 07/03/2021, Additional history exists GFR 01/03/2024 07/03/2023, 050 09/2023, 06/12/2023, Additional history exists CKD PHOS USE SMARTSET 80947 03/21/2024 02/0 02/2023, 12/19/2022, 11/28/2022, Additional history exists Albumin/Creatinine Ratio 05/06/2024 024, 12/03/2022, 02/05/2022, Additional history exists TSH 06/06/2024 06/07/2023, 05/19, 06/28/2021, Additional history exists CKD HGB USE SMARTSET 38449 06/18/202406/18, 06/19/2023, 05/07/2023, Additional history exists DTaP,Tdap,and [...] this encounter Medical Devices Implanted Type Area Armament Repairer Device Identifier Shelf Expiration Date Model / Serial / Lot [place] Suture Biocomposite - Sn/A - [id number] Implanted:Qty: 2 on 12/13/2021 by Moris Jimenez, DO at OR [facility] Left: Leg Lower [employer] 07/18/2024 [id number] / N/A / [id number] Vitoss Bbtrauma Foam Pack - [id number] - [id number] Implanted:Qty: 1 on 12/13/2021 by Moris Jimenez, DO at OR [facility] Left: Leg Lower MICHA : TRAUMA 01/15/[id number] / [id number] / [id number] documented as of this encounter Visit Diagnoses Diagnosis alf current use of anticoagulant therapy- Primary History of TIA (transient ischemic attack) Transient ischemic attack (TIA), and cerebral infarction without residual deficits S/P mitral valve replacement Heart valve replaced by other means documented in this encounter Advance Directives Latest Code Status on File Code Status Date Activated Date Inactivated Comments Full Code 12/12/2021 7:18 PM 12/20/2021 6:08 PM This order reflects the patients wishes and were consensually agreed upon. Question Answer Comments Discussion of Advance Directives occurred with: Patient Care Teams Crop Or Grain Farmer Relationship Specialty Start Date End Date Shara Ray MD [address] [place] [address] [place] [address] PCP - General Family Medicine 03/08/23 documented as of this encounter
--- OUTSIDE RECORDS SUMMARY | 2023-07-10 16:34 | External Medical Summary | Summary of Care ---
Author Name Unknown Organization [facility] Address [address] [facility] [place] [address] Phone [phone] Care Team Providers Care Corporate Strategy Analyst Name Role Phone Shara Ray MD Primary Care Provide r Reason for Visit * Reason Onset Date Comments [facility]: Maintenance 07/08/2023 Encounter Details Date Type Department Care Team (Late st Contact Info) Description 07/08/2023 Telephone [facility], [facility] [address] [place] [address] [facility], Nurse [facility] [address] [place] [address] [facility]: Maintenance Allergies Active Allergy Reactions Criticality Noted Date [...] BEDTIME 200 Tablet 1 02/05/2023 Active Nystatin 814579 UNIT/ML Mouth/Throat SuspensionIndication s:Thrush Swish and swallow [...] Plan: Rate controlled Continue coumadin Atherosclerosis of [place] co ronary artery without angina pectoris 04/03/2023 [...] of leg, left, subsequent encounter 09/2021 Overview: [facility] ER ulstrasound shows hematoma calf, INR 4.2, [...] in the Comments) Remote Patient Monitoring Vendor: [facility] Device(s): Connected Scale Self - Management Plan [...] & Plan: Symptoms well controlled on omeprazole prison current use of anticoagulant therapy 0 05/10/2004 Overview: ICD-10 update of inactive term Rheumatic heart disease 03/05/2002 Old myocardial infarct 01/02/2001 Last Assessment & Plan: Continue Crestor 20 mg daily S/P mitral valve replacement Last Assessment & Plan: Chronic AC coumadin Atherosclerosis of [place] co ronary artery of [place] heart without angina pectoris documented as of [...] IM/IV Chest Xray Additional Comments: Followed by curriculum assistant - Dr. Rashel Sales [facility] Complicated UTI (urinary tract infection) 12/20/2021 05/17/2022 [...] Overview: Per CKD protocol #1 ORBIT-AF Research Other*[id number] 06/02/2010 04/18/2011 Overview: PROJECT: #[id number], SPONSOR: Ge[employer]anna&[employer]ov[employer], PI: Adolfo De Jesus MD [...] can be closed. CONTACT: Roberto Carlos Huertas, Mold Repair Technician Type 2 diabetes mellitus wit h hemoglobin [...] encounter Miscellaneous Notes * Telephone Encounter - Velma Coombs LPN - 07/08/2023 1:05 PM EDT Images from the original note were not included. Has home visit with RNCM today FYI vitals documented in this encounter Plan of Treatment Upcoming Encounters Date Type Department Care Team (Late st Contact Info) Description 07/09/2023 11:00 AM EDT Nurse Only Ancillary [address] [place] [address] Nurse Nelly [address] [place] [address] 07/10/2023 7:05 AM EDT Laboratory Lab Mobile Phlebotomy [place] [address] [facility] [place] [address] [facility], [facility] Mobile Home Draw [address] [facility] [place] [address] 07/10/2023 6:00 PM EDT Anticoagulation Pharmacy Call Center WB [address] [facility] [place] [address] C[facility]ps, [facility] 58 60 [facility] [place] [address] 08/05/2023 1:00 PM EDT Nurse Only Ancillary Tena [address] [place] [address] [place], Nurse [address] [place] [address] 09/06/2023 8:30 AM EDT [facility] Visit [facility], [facility] 132 [facility] [place] [address] Valentina Laws RN 132 [facility] [place] [address] 09/20/2023 8:00 AM EDT Laboratory Lab Mobile Phlebotomy [facility] [address] [place] [address] [facility], [facility] Mobile Home Draw [address] [place] [address] 09/24/2023 11:30 AM EDT Office Visit Nephrology, [facility] [address] [place] [address] ZeKary bliss PA-C [address] [address] 10/22/2023 11:00 AM EDT Office Visit Cardiology, [facility] [place] 132 [facility] [place] [address] Hadley Molina MD 132 [facility] [place] [address] 12/20/2023 8:00 AM EDT Laboratory Lab Mobile Phlebotomy [facility] [address] [place] [address] [facility], [facility] Mobile Home Draw [address] [place] [address] 12/26/2023 2:00 PM EST Office Visit Hematology/Oncology [facility] [place] 200 [facility] [place] [address] Bouchra Del Cid CRNP [address] [place] [address] 01/17/2024 8:00 AM EST Office Visit [address] [phone] Shara Ray MD [address] [place] [address] [place] [address] 03/27/2024 8:00 AM EST Laboratory Lab Mobile Phlebotomy [facility] [address] [place] [address] [facility], [facility] Mobile Home Draw [address] [place] [address] 06/09/2024 1:30 PM EDT Office Visit Allergy/Immunology [facility] 200 [facility] [place] [address] Rae Ramirez PA-C 200 [facility] [place] [address] 06/24/2024 1:40 PM EDT Office Visit [address] [phone] Shara Ray MD [address] [place] [address] [place] [address] Scheduled Procedures Name Priority Associated Diagnoses Date/Ti [...] Additional history exists CKD PHOS USE SMARTSET 55837 03/21/2024 020 02/2023, 12/19/2022, 11/28/2022, Additional history exists Albumin/Creatinine Ratio 05/06/2024 024, 12/03/2022, 02/05/2022, Additional history exists TSH 06/06/2024 06/07/2023, 05/19, 06/28/2021, Additional history exists CKD HGB USE SMARTSET 72879 06/18/202406/18, 06/19/2023, 05/07/2023, Additional history exists DTaP,Tdap,and [...] this encounter Medical Devices Implanted Type Area Career Technology Teacher Device Identifier Shelf Expiration Date Model / Serial / Lot [place] Suture Biocomposite - Sn/A - [id number] Implanted:Qty: 2 on 12/13/2021 by Moris Jimenez DO at OR [facility] Left: Leg Lower [employer] 07/18/2024 AR-[id number] / N/A / [id number] Vitoss Bbtrauma Foam Pack - [id number] - [id number] Implanted:Qty: 1 on 12/13/2021 by Moris Jimenez DO at OR [facility] Left: Leg Lower MICHA : TRAUMA 01/15/2022 [id number] / [id number] / [id number] documented as of this encounter Advance Directives * Full Code (Latest Code Status on File) Date Activated Date Inactivated Comments 12/12/2021 7:18 PM 12/20/2021 6:08 PM This order reflects the patients wishes and were consensually agreed upon. Question Answer Comments Discussion of Advance Directives occurred with: Patient Care Teams Corporate Strategy Analyst Relationship Specialty Start Date End Date Shara Ray MD [address] [place] [address] [place] [address] PCP - General Family Medicine 03/08/23 documented as of this encounter
--- OUTSIDE RECORDS SUMMARY | 2023-07-10 16:34 | External Medical Summary ---
Author Name Unknown Address Unknown Organization K01:[facility] [place] [address] [place] [address] Laboratory Report Ordering Provider Test Date Status SONIA PANTOJA 07/03/2023 09:42:00 Final Standing order for pt/inr. < br/>Please draw pt/inr every 1 to 4 weeks as requested.
Results to [facility]

Warfarin Therapy
INR: 2.0-3.0 conventional anticoagulation
INR: 2.5-3.5 high intensity anticoagulation Observation Date Value Abnormality Reference (Units ) Status PT 07/03/2023 09:42:00 36.7 Above high normal 11 .6-15.2 (seconds) Final INR 07/03/2023 09:42:00 3.6 Above high normal 0. 8-1.2 Final Performing Location [facility] [place] - [address] [place] [address]
--- OUTSIDE RECORDS SUMMARY | 2023-07-10 16:34 | External Medical Summary | Summary of Care ---
Author Name Unknown Organization [facility] Address [address] [facility] [place] [address] Phone [phone] Care Team Providers Care Computer Aided Design Drafter Name Role Phone Shara Ray MD Primary Care Provide r Reason for Visit * Reason Onset Date Comments [facility]: Maintenance 07/07/2023 Encounter Details Date Type Department Care Team (Late st Contact Info) Description 07/07/2023 1:00 PM EDT Scheduled Telephone [facility], [facility] [address] [facility] [place] [address] [facility], Nurse [facility] [address] [facility] [place] [address] Allergies Active Allergy Reactions Criticality Noted Date [...] as of this encounter (statuses as of 07/07/2023) Medications Medication Sig Dispensed Refills Start Date [...] BEDTIME 200 Tablet 1 02/05/2023 Active Nystatin 547739 UNIT/ML Mouth/Throat SuspensionIndication s:Thrush Swish and swallow [...] GO TO ER 75 Tablet 03/08/2023 Active Additional Information Patient not taking.Reported [...] MOUTH EVERY MORNING 100 Tablet 1 04/04/2023 Active Levothyroxine Sodium 100 MCG Oral Tablet [...] as of this encounter (statuses as of 07/07/2023) Active Problems Problem Noted Date Diagnosed Date Major depressive disorder, recurrent, moderate 0 04/03/2023 Last Assessment & Plan: Mood stable on current dose celexa Other persistent atrial fibrillation 04/03/2023 Last Assessment & Plan: Rate controlled Continue coumadin Atherosclerosis of [place] co ronary artery without angina pectoris 04/03/2023 [...] of leg, left, subsequent encounter 09/2021 Overview: [facility] ER ulstrasound shows hematoma calf, [...] in the Comments) Remote Patient Monitoring Vendor: [facility] Device(s): Connected Scale Self - Management Plan [...] & Plan: Symptoms well controlled on omeprazole ad terminal makeup operator current use of anticoagulant therapy 0 05/10/2004 Overview: ICD-10 update of inactive term Rheumatic heart disease 03/05/2002 Old myocardial infarct 01/02/2001 Last Assessment & Plan: Continue Crestor 20 mg daily S/P mitral valve replacement Last Assessment & Plan: Chronic AC coumadin Atherosclerosis of [place] co ronary artery of [place] heart without angina pectoris documented as of this encounter (statuses as of 07/07/2023) Resolved Problems Problem Noted Date Diagnosed Date [...] IM/IV Chest Xray Additional Comments: Followed by zoogler - Dr. Rashel Sales [facility] Complicated UTI (urinary tract infection) [...] Overview: Per CKD protocol #1 ORBIT-[employer] Research Other*[id number] 06/02/2010 04/18/2011 Overview: PROJECT: #[id number], SPONSOR: Aileen, PI: Adolfo De Jesus MD [...] can be closed. CONTACT: Roberto Carlos Huertas, Exterior Interior Specialist Type 2 diabetes mellitus wit h hemoglobin A1c goal of less than 7.0% 04/24/2010 08/29/2018 Overview: ICD-10 update of inactive term ACTIVE CASE MANAGEMENT Kassie Anthony RN [phone] 05/10/19 10 12/05/2009 ADVANCE DIRECTIVE INFORMATION 05/09/2009 [...] as of this encounter (statuses as of 07/07/2023) Immunizations Name Administration Dates Next Due COVID-19 [...] encounter Miscellaneous Notes * Telephone Encounter - Renee Eden RN - 07/07/2023 2:55 PM EDT Images from the original note were not included. [facility] Follow-Up Call [facility] Subprogram: Focused Care Management (3-9 months) Follow Up Call Type: Weekend Call Acute issue requiring follow-up call: Remote Patient Monitoring Trigger Objective: 07/02/2023 3:15 PM 07/02/2023 3:12 PM 06/24/2023 11:17 AM 06/21/2023 2:40 PM 06/20/2023 1:42 PM VITALS ACROSS ENCOUNTERS BP 127/72 142/75 121/71 128/68 122/56 Pulse 73 80 83 76 65 Weight 63.1 kg 63.5 kg 64 kg 64 kg BMI 31.16 kg/m2 31.41 kg/m2 31.61 kg/m2 31.66 kg/m2 Remote Patient Monitoring: [facility] Scale: Oxygen Needs: NO CHANGE from baseline supplemental oxygen needs DME Needs: Nebulizer machine and supplies Medications: No medication or dose adjustments made during acute episode Subjective: Condition Status: [facility] Current Concerns: [facility] patient via her cell or SI/Rudy's phone to discuss 6.8 lbs increase in 1 week, 3.8 lbs in 1 day. Phones rang, answered by a sharp alarm type sound on both of them. Not able to leave message Disposition: Issue resolved. All appropriate follow up scheduled. Future Visits Scheduled: Future Appointments-next 60 days Date/Time Provider Specialty Dept Phone 07/08/2023 8:30 AM Valentina Laws, TANISHA [facility] [phone] 07/09/2023 11:00 AM Nelly Nurse [facility] [phone] 07/10/2023 7:05 AM Mv, [facility] Mobile Home Draw Laboratory Processing [phone] 07/10/2023 6:00 PM [facility] [phone] 08/05/2023 1:00 PM Nurse Andriy [facility] [phone] 09/20/2023 8:00 AM [facility] Mobile Home Draw Laboratory Processing [phone] 09/24/2023 11:30 AM (Arrive by 11:15 AM) Kary Pena PA-C Nephrology [phone] 10/22/2023 11:00 AM (Arrive by 10:45 AM) Hadley Molina MD Cardiology [phone] 12/20/2023 8:00 AM [facility], [facility] Mobile Home Draw Laboratory Processing [phone] 12/26/2023 2:00 PM (Arrive by 1:45 PM) Bouchra Del Cid CRNP Hematology Oncology [phone] 01/17/2024 8:00 AM (Arrive by 7:45 AM) Shara Ray MD Family Medicine [phone] 03/27/2024 8:00 AM [facility], [facility] Draw Laboratory Processing [phone] 06/09/2024 1:30 PM (Arrive by 1:15 PM) Rae Ramirez PA-C Allergy and Immunology [phone] 06/24/2024 1:40 PM (Arrive by 1:25 PM) Shara Ray MD Family Medicine [phone] Renee Eden, RN documented in this encounter Plan of Treatment Upcoming Encounters Date Type Department Care Team (Late st Contact Info) Description 07/08/2023 8:30 AM EDT [facility] [address] [facility] [place] [address] Valentina Laws, TANISHA [address] [facility] [place] [address] 07/09/2023 11:00 AM EDT Nurse Only Ancillary [address] [place] [address] Nurse Nelly [address] [place] [address] 07/10/2023 7:05 AM EDT Laboratory Lab Mobile Phlebotomy [facility] [address] [facility] [place] [address] [facility], [facility] Mobile Home Draw [address] [place] [address] 07/10/2023 6:00 PM EDT Anticoagulation Pharmacy Call Center 58[address] [facility] [place] [address] C[facility]ps, [facility] 58 60 [facility] [place] [address] 08/05/2023 1:00 PM EDT Nurse Only Ancillary [address] [place] [address] Nurse Andriy [address] [place] [address] 09/20/2023 8:00 AM EDT Laboratory Lab Mobile Phlebotomy [facility] [address] [place] [address] [facility], [facility] Mobile Home Draw [address] [place] [address] 09/24/2023 11:30 AM EDT Office Visit Nephrology, [facility] [address] [facility] [place] [address] ZeKary bliss PA-C 200 [facility] [place] [address] 10/22/2023 11:00 AM EDT Office Visit Cardiology, [facility] 132 [facility] [place] [address] Hadley Molina MD 132 [facility] [place] [address] 12/20/2023 8:00 AM EDT Laboratory Lab Mobile Phlebotomy [facility] [address] [place] [address] [facility], [facility] Mobile Home Draw [address] [place] [address] 12/26/2023 2:00 PM EST Office Visit Hematology/Oncology [facility] 200 [facility] [place] [phone] Bouchra Del Cid CRNP 400 [facility] [place] [address] 01/17/2024 8:00 AM EST Office Visit Family [address] [place] [phone] Shara Ray MD [address] [place] [address] [place] [address] 03/27/2024 8:00 AM EST Laboratory Lab Mobile Phlebotomy [facility] [address] [place] [address] [facility], [facility] Mobile Home Draw [address] [place] [address] 06/09/2024 1:30 PM EDT Office Visit Allergy/Immunology [employer] [address] [place] [address] Rae Ramirez PA-C [address] [place] [address] 06/24/2024 1:40 PM EDT Office Visit Family Medicine [address] [place] [phone] Shara Ray MD [address] [place] [address] [place] [address] Scheduled Procedures Name Priority Associated Diagnoses Date/Ti [...] Additional history exists CKD PHOS USE SMARTSET 89963 03/21/2024 02/0 02/2023, 12/19/2022, 11/28/2022, Additional history exists Albumin/Creatinine Ratio 05/06/2024 024, 12/03/2022, 02/05/2022, Additional history exists TSH 06/06/2024 06/07/2023, 05/19, 06/28/2021, Additional history exists CKD HGB USE SMARTSET 00270 06/18/202406/18, 06/19/2023, 05/07/2023, Additional history exists DTaP,Tdap,and [...] this encounter Medical Devices Implanted Type Area Film Critic Device Identifier Shelf Expiration Date Model / Serial / Lot [place] Suture Biocomposite - Sn/A - [id number] Implanted:Qty: 2 on 12/13/2021 by Moris Jimenez DO at OR [facility] Left: Leg Lower [employer] 07/18/2024 [id number]-[id number] / N/A / [id number] Vitoss Bbtrauma Foam Pack - [id number] - [id number] Implanted:Qty: 1 on 12/13/2021 by Moris Jimenez DO at OR [facility] Left: Leg Lower MICHA : TRAUMA 01/15/[id number] / [id number] / [id number] documented as of this encounter Advance Directives * Full Code (Latest Code Status on File) Date Activated Date Inactivated Comments 12/12/2021 7:18 PM 12/20/2021 6:08 PM This order reflects the patients wishes and were consensually agreed upon. Question Answer Comments Discussion of Advance Directives occurred with: Patient Care Teams Computer Aided Design Drafter Relationship Specialty Start Date End Date Shara Ray MD [address] [place] [address] [place] [phone] PCP - General Family Medicine 03/08/23 documented as of this encounter
--- OUTSIDE RECORDS SUMMARY | 2023-07-10 16:35 | External Medical Summary | Summary of Care ---
Author Name Unknown Organization [facility] Address [address] [facility] [place] [address] Phone [phone] Care Team Providers Care Engineering Project Designer Name Role Phone Shara Ray MD Primary Care Provide r Reason for Visit * Reason Onset Date Comments Appointment 06/25/2023 Encounter Details Date Type Department Care Team (Late st Contact Info) Description 06/25/2023 Telephone Nephrology, [facility] 200 [place] [address] Aliyah Lacey MD 200 [place] [address] Appointment Allergies Active Allergy Reactions Criticality Noted Date [...] as of this encounter (statuses as of 06/27/2023) Medications Medication Sig Dispensed Refills Start Date [...] for Cough. 30 Capsule 1 07/03/2021 Active D3-1000 25 MCG (1000 UT) Oral Capsule (Cholecalciferol) Take 1 Capsule by mouth in the morning. 0 Active Magnesium Glycinate 665 MG Oral CapsuleIndications:R [...] BEDTIME 200 Tablet 1 02/05/2023 Active Nystatin 047484 UNIT/ML Mouth/Throat SuspensionIndication s:Thrush Swish and swallow [...] BEFORE A MEAL 90 Tablet 1 05/24/2023 5 Active Azelastine HCl 0.1 % Nasal Solution [...] days directed 12 Tablet 5 06/21/2023 Active documented as of this encounter (statuses as of 06/27/2023) Active Problems Problem Noted Date Diagnosed Date Major depressive disorder, recurrent, moderate 0 04/03/2023 Last Assessment & Plan: Mood stable on current dose celexa Other persistent atrial fibrillation 04/03/2023 Last Assessment & Plan: Rate controlled Continue coumadin Atherosclerosis of [place] co ronary artery without angina pectoris 04/03/2023 [...] of leg, left, subsequent encounter 09/2021 Overview: [facility] ER ulstrasound shows hematoma calf, INR [...] in the Comments) Remote Patient Monitoring Vendor: [facility] Device(s): Connected Scale Self - Management Plan [...] & Plan: Symptoms well controlled on omeprazole M[facility] current use of anticoagulant therapy 0 05/10/2004 Overview: ICD-10 update of inactive term Rheumatic heart disease 03/05/2002 Old myocardial infarct 01/02/2001 Last Assessment & Plan: Continue Crestor 20 mg daily S/P mitral valve replacement Last Assessment & Plan: Chronic AC coumadin Atherosclerosis of [place] co ronary artery of [place] heart without angina pectoris documented as of this encounter (statuses as of 06/27/2023) Resolved Problems Problem Noted Date Diagnosed Date [...] IM/IV Chest Xray Additional Comments: Followed by insurance broker - Dr. Rashel Sales [facility] Complicated UTI (urinary tract infection) 12/20/2021 [...] Overview: Per CKD protocol #1 ORBIT-AF Research Other*[id number] 06/02/2010 04/18/2011 Overview: PROJECT: #[id number], SPONSOR: Aileen, PI: Adolfo De Jesus MD [...] can be closed. CONTACT: Roberto Carlos Huertas, Deputy Insurance Commissioner Type 2 diabetes mellitus wit h hemoglobin A1c goal of less than 7.0% 04/24/2010 08/29/2018 Overview: ICD-10 update of inactive term ACTIVE CASE MANAGEMENT Kassie Anthony RN [phone] 05/10/1912/05/2009 ADVANCE DIRECTIVE INFORMATION 05/09/2009 04/26/2021 Overview: No, [...] as of this encounter (statuses as of 06/27/2023) Immunizations Name Administration Dates Next Due COVID-19 mRNA, LNP-s, No Pre serve, 2-Dose Series (Moderna) 04/19/2020,03/22/2020 COVID-19, MRNA-LNP, 23-24, P F, 30 MCG/0.3 mL, 12 YRS AND ABOVE, IM (PFIZER-Comirnaty) 12/03/2022 COVID-19, mRNA, LNP-s, PF, B ooster, 100mcg/0.5mg (Moderna) 03/14/2021 Covid-19, Mrna, Lnp-s, Pf, B ivalent, 50 Mcg, IM, 12 yrs and above (Moderna) 11/29/2021 Hepatitis B, 20+ yrs 09/01/1978,04/04/1978,03/04 Influenza, Whole Virus 02/21/2000 Pneumococcal Conjugate Vacc, 13 Valent (Prevnar) 08/29/2018 Pneumococcal Polysaccharide PPV23 (Pneumovax) 09/02/2019,01/01/2005 Season Influenza, Quad, PF, Adjuvanted, 65+ Yrs, IM (FLUAD) 12/03/2019 Seasonal Influenza, PF, 6 M & above, IM , (FluLaval or Fluzone) 10/28/2018,10/29/2017,12/06/2016 Seasonal Influenza, Quadriva lent Hd (Fluzone Hd) 11/30/2022,11/06/2021,11/10/2020 Seasonal Influenza, Quadriva lent, No Preserve, IM 12/05/2015,12/07/2014 Seasonal Influenza, Split, I IV3, With Preserve, Inj 11/03/2013,11/06/2012,10/30/2011,11/16,11/29/2009,11/03/2008,11/24/2007 ,12/10/2006,12/11/2005,12/08/2004 TDAP (age 10 and older)(Boostrix) 10/14/2018 TDAP [...] as of this encounter Miscellaneous Notes * Addendum Note - Jorge Luis Landeros LPN - 06/27/2023 9:32 AM EDTAddended by: JORGE LUIS LANDEROS on: 06/27/2023 09:32 AM Modules accepted: Orders * Telephone Encounter - Aliyah Lacey MD - 06/27/2023 9:14 AM EDT Add pth, 25 ohd to 8 if possible; dx BRISSA; else w/ next draw * Telephone Encounter - Jorge Luis Landeros LPN - 06/26/2023 11:[address] Lacey Please see message Pt has several future orders Do you want anything additional based on these ordered * Telephone Encounter - Wilma Sanchez OSA - 06/25/2023 1:26 PM EDT 06/25/23 called patient and got patient re-scheduled on 07/02/[address] Lacey[address] Please place lab orders for Dr. Lacey before, 06/26/23. Please contact patients once lab orders have been placed. Patient uses mobile lab. documented in this encounter Plan of Treatment Upcoming Encounters Date Type Department Care Team (Late st Contact Info) Description 07/02/2023 2:40 PM EDT Office Visit Nephrology [address] [place] [address] Aliyah Lacey MD 200 [place] [address] 07/08/2023 8:30 AM EDT [facility] Visit [facility] [address] Valentina Laws RN [facility] [address] 08/05/2023 1:00 PM EDT Nurse Only Ancillary [address] [place] [address] Andriy, Nurse [address] [place] [address] 09/20/2023 8:00 AM EDT Laboratory Lab Mobile Phlebotomy [address] [place] [phone] [facility], [facility] Mobile Home Draw [address] [place] [address] 09/24/2023 11:30 AM EDT Office Visit Nephrology, [facility] 200 [facility] [place] [address] ZeKary bliss PA-C [address] [place] [address] 10/22/2023 11:00 AM EDT Office Visit Cardiology, [facility] [place] [address] Hadley Molina MD 132 [facility] [address] 12/20/2023 8:00 AM EDT Laboratory Lab Mobile Phlebotomy [facility] [address] [place] [address] [facility], [facility] Mobile Home Draw [address] [place] [address] 12/26/2023 2:00 PM EST Office Visit Hematology/Oncology [facility] 200 [facility] [place] [phone] Bouchra Del Cid, LATIN AMERICAN STUDIES DIRECTOR [address] [place] [address] 01/17/2024 8:00 AM EST Office Visit Family Medicine [address] [place] [address] Shara Ray MD [address] [place] [address] [place] [address] 03/27/2024 8:00 AM EST Laboratory Lab Mobile Phlebotomy [facility] [address] [place] [address] [facility], [facility] Mobile Home Draw [address] [place] [address] 06/09/2024 1:30 PM EDT Office Visit Allergy/Immunology [employer] [address] [place] [address] Rae Ramirez PA-C [address] [place] [address] 06/24/2024 1:40 PM EDT Office Visit [facility] [address] [phone] Shara Ray MD [address] [place] [address] [place] [address] Pending Results Name Type Priority Associated Diagnoses Date /Time PTH Lab Routine Hypertensive heart and kidney disease with chronic diastolic congestive heart failure and stage 3b chronic kidney disease (HCC) 06/26/2023 10:17 AM EDT 25-HYDROXY VITAMIN D Lab Routine Vitamin D deficiency 06/26/2023 10:17 AM EDT Scheduled Orders Name Type Priority Associated Diagnoses Orde r Schedule PTH Lab Routine Hypertensive heart and kidney disease with chronic diastolic congestive heart failure and stage 3b chronic kidney disease (HCC) Expected: 06/27/2023, Expires: 06/26/2024 25-HYDROXY VITAMIN D Lab Routine Vitamin D deficiency Expected: 06/27/2023, Expires: 06/26/2024 Scheduled Procedures Name Priority Associated Diagnoses Date/Ti [...] 11/15/2022, 10/20, 07/03/2021, Additional history exists GFR 12/27/2023 06/26/2023, 05/20, 05/07/2023, Additional history exists CKD PHOS USE SMARTSET 00636 03/21/2024 02/0 02/2023, 12/19/2022, 11/28/2022, Additional history exists Albumin/Creatinine Ratio 05/06/2024 024, 12/03/2022, 02/05/2022, Additional history exists TSH 06/06/2024 06/07/2023, 05/19, 06/28/2021, Additional history exists CKD HGB USE SMARTSET 53887 06/18/202406/18, 06/19/2023, 05/07/2023, Additional history exists DTaP,Tdap,and [...] this encounter Medical Devices Implanted Type Area Senior Pl Sql Developer Device Identifier Shelf Expiration Date Model / Serial / Lot [place] Suture Biocomposite - Sn/A - [id number] Implanted:Qty: 2 on 12/13/2021 by Moris Jimenez, DO at OR [facility] Left: Leg Lower [employer] 07/18/2024 AR-2324BCC / N/A / [id number] Vitoss Bbtrauma Foam Pack - [id number] - [id number] Implanted:Qty: 1 on 12/13/2021 by Moris Jimenez, DO at OR [facility] Left: Leg Lower MICHA : TRAUMA 01/15/2022 [id number] / [id number] / [id number] documented as of this encounter Visit Diagnoses Diagnosis Hypertensive 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 Question Answer Comments Discussion of Advance Directives occurred with: Patient Care Teams Engineering Project Designer Relationship Specialty Start Date End Date Shara Ray MD [address] [place] [address] [place] [address] PCP - General Family Medicine 03/08/23 documented as of this encounter
--- OUTSIDE RECORDS SUMMARY | 2023-07-10 16:35 | External Medical Summary | Summary of Care ---
Author Name Unknown Organization [facility] Address [address] [facility] [place] [address] Phone [phone] Care Team Providers Care Animal Anatomist Name Role Phone Shara Ray MD Primary Care Provide r Reason for Visit * Reason Onset Date Comments Test Results 06/28/2023 Encounter Details Date Type Department Care Team (Late st Contact Info) Description 06/28/2023 Telephone Cardiology, [facility] [address] [place] [address] Hadley Molina MD [address] [place] [address] Test Results Allergies Active Allergy Reactions Criticality [...] as of this encounter (statuses as of 06/28/2023) Medications Medication Sig Dispensed Refills Start Date [...] BEDTIME 200 Tablet 1 02/05/2023 Active Nystatin 813617 UNIT/ML Mouth/Throat SuspensionIndication s:Thrush Swish and swallow [...] as of this encounter (statuses as of 06/28/2023) Active Problems Problem Noted Date Diagnosed Date Major depressive disorder, recurrent, moderate 0 04/03/2023 Last Assessment & Plan: Mood stable on current dose celexa Other persistent atrial fibrillation 04/03/2023 Last Assessment & Plan: Rate controlled Continue coumadin Atherosclerosis of upper [place] co ronary artery without angina pectoris 04/03/2023 [...] of leg, left, subsequent encounter 09/2021 Overview: [facility] [place] ER ulstrasound shows hematoma calf, INR 4.2, [...] in the Comments) Remote Patient Monitoring Vendor: [facility] Device(s): Connected Scale Self - Management Plan [...] & Plan: Symptoms well controlled on omeprazole 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 Rashel Sales [facility] [place] Complicated UTI (urinary tract infection) 12/20/2021 05/17/2022 [...] Overview: Per CKD protocol #1 ORBIT-AF Research Other*[id number] 06/02/2010 04/18/2011 Overview: PROJECT: #[id number], SPONSOR: Aileen, PI: Adolfo De Jesus MD [...] can be closed. CONTACT: Roberto Carlos Huertas, Wood Milling Machine Hand Type 2 diabetes mellitus wit h hemoglobin [...] as of this encounter (statuses as of 06/28/2023) Immunizations Name Administration Dates Next Due COVID-19 [...] encounter Miscellaneous Notes * Telephone Encounter - Sarah Argueta CMA - 06/28/2023 9:28 AM EDT My g sent. * Telephone Encounter - Sarah Argueta CMA - 06/28/2023 9:27 AM EDT ----- Message from Hadley Molina MD sent at 06/27/2023 4:49 PM EDT ----- . Kidney function and electrolytes are stable documented in this encounter Plan of Treatment Upcoming Encounters Date Type Department Care Team (Late st Contact Info) Description 07/02/2023 2:40 PM EDT Office Visit Nephrology [address] [place] [address] Aliyah Lacey MD 200 [facility] [place] [address] 07/03/2023 7:05 AM EDT Laboratory Lab Mobile Phlebotomy [facility] [address] [employer] [place] [address] [facility], [facility] Mobile Home Draw [address] [employer] [place] [address] 07/03/2023 6:00 PM EDT Anticoagulation Pharmacy Call Center [address] [facility] [place] [address] C[facility]ps, [facility] 58 60 [facility] [place] [place] [address] 07/08/2023 8:30 AM EDT [facility] Visit [facility], [facility] 132 [facility] [address] Valentina Laws, RN 132 [facility] [place] [address] 08/05/2023 1:00 PM EDT Nurse Only Ancillary [address] [place] [address] [place], Nurse [address] [place] [address] 09/20/2023 8:00 AM EDT Laboratory Lab Mobile Phlebotomy [facility] [address] [place] [address] [facility], [facility] Mobile Home Draw [address] [place] [address] 09/24/2023 11:30 AM EDT Office Visit NephrologyJudson [address] [address] Kary Pena PA-C [address] [place] [address] 10/22/2023 11:00 AM EDT Office Visit Cardiology, [facility] [address] [place] [address] Hadley Molina MD [address] [address] 12/20/2023 8:00 AM EDT Laboratory Lab Mobile Phlebotomy [facility] [address] [place] [address] [facility] [place] Mobile Home Draw [address] [place] [address] 12/26/2023 2:00 PM EST Office Visit Hematology/Oncology [facility] [address] [phone] Bouchra Del Cid, SOFI [address] [place] [address] 01/17/2024 8:00 AM EST Office Visit Family Medicine [address] [address] Shara Ray MD [address] [place] [address] [place] [address] 03/27/2024 8:00 AM EST Laboratory Lab Mobile Phlebotomy [facility] [address] [place] [address] [facility] [place] Mobile Home Draw [address] [place] [address] 06/09/2024 1:30 PM EDT Office Visit Allergy/Immunology [facility] [address] [address] Rae Ramirez PA-C 200 [facility] [place] [address] 06/24/2024 1:40 PM EDT Office Visit Family Medicine [address] [place] [phone] Shara Ray MD [address] [place] [address] [place] [address] Scheduled Procedures Name Priority Associated Diagnoses Date/Ti [...] Additional history exists CKD PHOS USE SMARTSET 14781 03/21/2024 02/0 02/2023, 12/19/2022, 11/28/2022, Additional history exists Albumin/Creatinine Ratio 05/06/2024 024, 12/03/2022, 02/05/2022, Additional history exists TSH 06/06/2024 06/07/2023, 05/19, 06/28/2021, Additional history exists CKD HGB USE SMARTSET 26894 06/18/202406/18, 06/19/2023, 05/07/2023, Additional history exists DTaP,Tdap,and [...] this encounter Medical Devices Implanted Type Area Partnership Development Manager Device Identifier Shelf Expiration Date Model / Serial / Lot [place] Suture Biocomposite - Sn/A - [id number] Implanted:Qty: 2 on 12/13/2021 by Moris Jimenez DO at OR [facility] Left: Leg Lower [employer] 07/18/2024 AR-[id number] / N/A / [id number] Vitoss Bbtrauma Foam Pack - [id number] - [id number] Implanted:Qty: 1 on 12/13/2021 by Moris Jimenez DO at OR [facility] Left: Leg Lower MICHA : TRAUMA 01/15/[id number] / [id number] / [id number] documented as of this encounter Advance Directives Latest Code Status on File Code Status Date Activated Date Inactivated Comments Full Code 12/12/2021 7:18 PM 12/20/2021 6:08 PM This order reflects the patients wishes and were consensually agreed upon. Question Answer Comments Discussion of Advance Directives occurred with: Patient Care Teams Animal Anatomist Relationship Specialty Start Date End Date Shara Ray MD [address] [place] [address] [place] [address] PCP - General Family Medicine 03/08/23 documented as of this encounter
--- OUTSIDE RECORDS SUMMARY | 2023-07-10 16:35 | External Medical Summary | Summary of Care ---
Author Name Unknown Organization [facility] Address [address] [place] [facility] [address] Phone [phone] Care Team Providers Care Education Trainer Name Role Phone Shara Ray MD Primary Care Provide r Encounter Details Date Type Department Care Team (Late st Contact Info) Description 03/31/2023 Result Scan Unspecified Department <No scans attached> Allergies Active Allergy Reactions Criticality Noted Date [...] BEDTIME 200 Tablet 1 02/05/2023 Active Nystatin 472268 UNIT/ML Mouth/Throat SuspensionIndication s:Thrush Swish and swallow 5 mL in the morning and 5 mL at noon and 5 mL in the evening and 5 mL before bedtime. For thrush.. 240 mL 1 02/14/2023 Active Warfarin Sodium 2.5 MG Oral Tablet (Coumadin) Take 1 and 1/2 to 2 tablets by mouth daily as directed by [facility] 180 Tablet 3 03/06/2023 Active Nitroglycerin [...] or wheezing 1080 mL 2 03/25/2023 Active documented as of this encounter (statuses as of 06/27/2023) Active Problems Problem Noted Date Diagnosed Date Major depressive disorder, recurrent, moderate 0 04/03/2023 Last Assessment & Plan: Mood stable on current dose celexa Other persistent atrial fibrillation 04/03/2023 Last Assessment & Plan: Rate controlled Continue coumadin Atherosclerosis of [place] co ronary artery without angina pectoris 04/03/2023 [...] in the Comments) Remote Patient Monitoring Vendor: [facility] Device(s): Connected Scale Self - Management Plan [...] & Plan: Symptoms well controlled on omeprazole 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 Rashel Sales [facility] Complicated [...] Overview: Per CKD protocol #1 ORBIT-AF Research Other*[id number] 06/02/2010 04/18/2011 Overview: PROJECT: #[id number], SPONSOR: Aileen, PI: Adolfo De Jesus MD [...] can be closed. CONTACT: Roberto Carlos Huertas, School Age Lead Teacher Type 2 diabetes mellitus wit h hemoglobin A1c goal of less than 7.0% 04/24/2010 08/29/2018 Overview: ICD-10 update of inactive term ACTIVE CASE MANAGEMENT Kassie Anthony, RN [phone] 05/10/19 10 12/05/2009 ADVANCE [...] No 12/12/2021 documented as of this encounter Plan of Treatment Upcoming Encounters Date Type Department Care Team (Late st Contact Info) Description 07/02/2023 2:40 PM EDT Office Visit Nephrology [address] [place] [address] Aliyah Lacey MD 200 [place] [address] 07/08/2023 8:30 AM EDT Home Visit eda at [facility] 132 [facility] [place] [address] Valentina Laws RN 132 [facility] [address] 08/05/2023 1:00 PM EDT Nurse Only Ancillary [address] [place] [address] [place], Nurse [address] [place] [address] 09/20/2023 8:00 AM EDT Laboratory Lab Mobile Phlebotomy [address] [place] [id number] [facility] Mobile Home Draw [address] [place] [address] 09/24/2023 11:30 AM EDT Office Visit Nephrology, [facility] 200 [facility] [place] [address] ZeKary bliss PA-C [address] [place] [address] 10/22/2023 11:00 AM EDT Office Visit Cardiology, [facility] [address] [place] [address] Hadley Molina MD [address] [place] [facility] [address] 12/20/2023 8:00 AM EDT Laboratory Lab Mobile Ph[facility]bot[facility] [address] [place] [address] [facility] Mobile Home Draw [address] [place] [address] 12/26/2023 2:00 PM EST Office Visit Hematology/Oncology [facility] 200 [facility] [place] [phone] Bouchra Del Cid, PIE FILLING MIXER [address] [place] [address] 01/17/2024 8:00 AM EST Office Visit Family Medicine [address] [phone] Shara Ray MD [address] [place] [address] [place] [address] 03/27/2024 8:00 AM EST Laboratory Lab Mobile Phlebotomy [facility] [address] [place] [address] [facility], [facility] Mobile Home Draw [address] [place] [address] 06/09/2024 1:30 PM EDT Office Visit Allergy/Immunology [facility] [place] [address] [place] [address] Rae Ramirez PA-C [address] [place] [address] 06/24/2024 1:40 PM EDT Office Visit Family Medicine [address] [place] [address] Shara Ray MD [address] [place] [address] [place] [address] Scheduled Procedures Name Priority Associated Diagnoses Date/Ti [...] Additional history exists CKD PHOS USE SMARTSET 13461 03/21/2024 02/0 02/2023, 12/19/2022, 11/28/2022, Additional history exists Albumin/Creatinine Ratio 05/06/2024 024, 12/03/2022, 02/05/2022, Additional history exists TSH 06/06/2024 06/07/2023, 05/19, 06/28/2021, Additional history exists CKD HGB USE SMARTSET 99543 06/18/202406/18, 06/19/2023, 05/07/2023, Additional history exists DTaP,Tdap,and [...] this encounter Medical Devices Implanted Type Area Plumber Gasfitter Device Identifier Shelf Expiration Date Model / Serial / Lot [place] Suture Biocomposite - Sn/A - [id number] Implanted:Qty: 2 on 12/13/2021 by Moris Jimenez DO at OR [facility] Left: Leg Lower [employer] 07/18/2024 AR-2324BCC / N/A / [id number] Vitoss Bbtrauma Foam Pack - [id number] - [id number] Implanted:Qty: 1 on 12/13/2021 by Moris Jimenez DO at OR [facility] Left: Leg Lower MICHA : TRAUMA 01/15/[id number] / [id number] / [id number] documented as of this encounter Procedures Procedure Name Priority Date/Time Associated Diagnosis Comments PROCEDURE SCANNED RESULT 03/31/2023 documented in this encounter Results * PROCEDURE SCANNED RESULT (03/31/2023) 03/31/2023 No Physician Data Unknown SURGERY documented in this encounter Advance Directives Latest Code Status on File Code Status Date Activated Date Inactivated Comments Full Code 12/12/2021 7:18 PM 12/20/2021 6:08 PM This order reflects the patients wishes and were consensually agreed upon. Question Answer Comments Discussion of Advance Directives occurred with: Patient Care Teams Education Trainer Relationship Specialty Start Date End Date Shara Ray MD [address] [place] [address] [place] [phone] PCP - General Family Medicine 03/08/23 documented as of this encounter
--- OUTSIDE RECORDS SUMMARY | 2023-07-10 16:35 | External Medical Summary | Summary of Care ---
Author Name Unknown Organization [facility] Address [address] [facility] [place] [address] Phone [phone] Care Team Providers Care Transport Operations Inspector Name Role Phone Shara Ray MD Primary Care Provide r Reason for Visit * Reason Onset Date Comments Appointment 06/25/2023 Encounter Details Date Type Department Care Team (Late st Contact Info) Description 06/25/2023 Telephone Nephrology, [facility] 200 [place] [address] Aliyah Lacey MD 200 [place] [address] Appointment Allergies Active Allergy Reactions Criticality Noted [...] BEDTIME 200 Tablet 1 02/05/2023 Active Nystatin 484214 UNIT/ML Mouth/Throat SuspensionIndication s:Thrush Swish and swallow [...] Plan: Rate controlled Continue coumadin Atherosclerosis of [place] co ronary artery without angina pectoris 04/03/2023 [...] of leg, left, subsequent encounter 09/2021 Overview: [facility] ER ulstrasound shows hematoma calf, INR [...] in the Comments) Remote Patient Monitoring Vendor: [facility] Device(s): Connected Scale Self - Management Plan [...] & Plan: Symptoms well controlled on omeprazole alf current use of anticoagulant therapy 0 05/10/2004 Overview: ICD-10 update of inactive term Rheumatic heart disease 03/05/2002 Old myocardial infarct 01/02/2001 Last Assessment & Plan: Continue Crestor 20 mg daily S/P mitral valve replacement Last Assessment & Plan: Chronic AC coumadin Atherosclerosis of [place] co ronary artery of [place] heart without angina pectoris documented as of [...] IM/IV Chest Xray Additional Comments: Followed by coordinate measuring equipment operator - Dr. Rashel Sales [facility] Complicated UTI (urinary tract infection) 12/20/2021 [...] Overview: Per CKD protocol #1 ORBIT-AF Research Other*[id number] 06/02/2010 04/18/2011 Overview: PROJECT: #[id number], SPONSOR: Aileen, PI: Adolfo De Jesus MD [...] can be closed. CONTACT: Roberto Carlos Huertas, Telegraphic Typewriter Mechanic Type 2 diabetes mellitus wit h hemoglobin [...] encounter Miscellaneous Notes * Telephone Encounter - Aliyah Lacey MD - 06/27/2023 9:14 AM EDT Add pth, 25 ohd to 06/25 if possible; dx BRISSA; else w/ next draw * Telephone Encounter - Suzie Landeros LPN - 06/26/2023 11:57 AM EDT [...] 07/02/2023 2:40 PM EDT Office Visit Nephrology [address] [place] [address] Aliyah Lacey MD [address] [place] [address] 07/08/2023 8:30 AM EDT Home Visit [facility] 132 [place] [address] Valentina Laws, RN 132 [place] [address] 08/05/2023 1:00 PM EDT Nurse Only Ancillary [address] [place] [address] Isabellaalley, Nurse [address] [place] [address] 09/20/2023 8:00 AM EDT Laboratory Lab Mobile Phlebotomy [facility] [address] [place] [address] [facility], [facility] Mobile Home Draw [address] [place] [address] 09/24/2023 11:30 AM EDT Office Visit [facility] [address] [place] [address] Kary Pena PA-C 200 [facility] [place] [address] 10/22/2023 11:00 AM EDT Office Visit Cardiology, [facility] [address] [place] [address] Hadley Molina MD 132 [facility] [place] [address] 12/20/2023 8:00 AM EDT Laboratory Lab Mobile Phlebotomy [facility] [address] [place] [address] [facility], [facility] Mobile Home Draw [address] [place] [address] 12/26/2023 2:00 PM EST Office Visit Hematology/Oncology [facility] [address] [facility] [address] [place] [phone] Bouchra Del Cid CRNP 400 [place] [address] 01/17/2024 8:00 AM EST Office Visit Family Medicine [address] [phone] Shara Ray MD [address] [place] [address] [place] [address] 03/27/2024 8:00 AM EST Laboratory Lab Mobile Phlebotomy [facility] [address] [place] [address] [facility], [facility] Mobile Home Draw [address] [place] [address] 06/09/2024 1:30 PM EDT Office Visit [facility]ergy[facility] [address] [place] [address] Rae Ramirez PA-C 200 [facility] [place] [address] 06/24/2024 1:40 PM EDT Office Visit Family Medicine [address] [place] [phone] Shara Ray MD [address] [place] [address] [place] [address] Scheduled Procedures Name Priority Associated Diagnoses Date/Ti [...] Additional history exists CKD PHOS USE SMARTSET 25251 03/21/2024 02/0 02/2023, 12/19/2022, 11/28/2022, Additional history exists Albumin/Creatinine Ratio 05/06/2024 024, 12/03/2022, 02/05/2022, Additional history exists TSH 06/06/2024 06/07/2023, 05/19, 06/28/2021, Additional history exists CKD HGB USE SMARTSET 07559 06/18/202406/18, 06/19/2023, 05/07/2023, Additional history exists DTaP,Tdap,and [...] this encounter Medical Devices Implanted Type Area Tsa Screener Device Identifier Shelf Expiration Date Model / Serial / Lot [place] Suture Biocomposite - Sn/A - [id number] Implanted:Qty: 2 on 12/13/2021 by Moris Jimenez DO at OR [facility] Left: Leg Lower [employer] 07/18/2024 AR-2324BCC / N/A / [id number] Vitoss Bbtrauma Foam Pack - [id number] - [id number] Implanted:Qty: 1 on 12/13/2021 by Moris Jimenez DO at OR [facility] Left: Leg Lower MCIHA : TRAUMA 01/15/2022 / [id number] / [id number] documented as of this encounter Advance Directives Latest Code Status on File Code Status Date Activated Date Inactivated Comments Full Code 12/12/2021 7:18 PM 12/20/2021 6:08 PM This order reflects the patients wishes and were consensually agreed upon. Question Answer Comments Discussion of Advance Directives occurred with: Patient Care Teams Transport Operations Inspector Relationship Specialty Start Date End Date Shara Ray MD [address] [place] [address] [place] [address] PCP - General Family Medicine 03/08/23 documented as of this encounter
--- OUTSIDE RECORDS SUMMARY | 2023-07-10 16:35 | External Medical Summary | Summary of Care ---
Author Name Unknown Organization [facility] Address [address] [facility] [place] [address] Phone [phone] Care Team Providers Care Library Services Assistant Name Role Phone Shara Ray MD Primary Care Provide r Reason for Visit * Reason Comments Dosage Adjustment Via Phone (anticoag Cl inic) Encounter Details Date Type Department Care Team (Latest Contact Info) Description 06/27/2023 6:00 AM EDT Anticoagulation Pharmacy Call Center [address] [place] [address] [facility] [address] [place] [address] extermination supervisor current use of anticoagulant therapy*; History of [...] BEDTIME 200 Tablet 1 02/05/2023 Active Nystatin 592627 UNIT/ML Mouth/Throat SuspensionIndication s:Thrush Swish and swallow [...] Plan: Rate controlled Continue coumadin Atherosclerosis of [place] co ronary artery without angina pectoris 04/03/2023 [...] leg, left, subsequent encounter 09/2021 Overview: [facility] ER ulstrasound shows hematoma calf, INR [...] in the Comments) Remote Patient Monitoring Vendor: [facility] Device(s): Connected Scale Self - Management Plan [...] & Plan: Symptoms well controlled on omeprazole extermination supervisor current use of anticoagulant therapy 0 05/10/2004 Overview: ICD-10 update of inactive term Rheumatic heart disease 03/05/2002 Old myocardial infarct 01/02/2001 Last Assessment & Plan: Continue Crestor 20 mg daily S/P mitral valve replacement Last Assessment & Plan: Chronic AC coumadin Atherosclerosis of [place] co ronary artery of [place] heart without angina pectoris documented as of [...] IM/IV Chest Xray Additional Comments: Followed by teacher private - Dr. Rashel Sales [facility] Complicated UTI (urinary tract infection) 12/20/2021 [...] Overview: Per CKD protocol #1 [employer]BIT[employer] Other*[id number] 06/02/2010 04/18/2011 Overview: PROJECT: #[id number], SPONSOR: [employer]ov[employer], PI: Adolfo De Jesus MD SUMMARY: Observational [...] can be closed. CONTACT: Roberto Carlos Huertas, Dowel Setting Machine Operator Type 2 diabetes mellitus wit h hemoglobin A1c goal of less than 7.0% 04/24/2010 08/29/2018 Overview: ICD-10 update of inactive term ACTIVE CASE MANAGEMENT Kassie Anthony, RN [phone] 05/10/19 10 12/05/2009 ADVANCE DIRECTIVE INFORMATION 05/09/2009 [...] as of this encounter Progress Notes * Ifeoma Kelsey, wood heel finisher - 06/27/2023 1:28 PM EDT Contacts Type Contact Phone/Fax 06/27/2023 01:26 PM EDT Phone (Outgoing) Abdi Bowling (Self) [phone] (M) Spoke to Patient Subjective Patient Findings Negatives: Signs/symptoms of bleeding, Change in health, Change in activity, Upcoming invasive procedure, Missed doses, Extra doses, Change in medications, Change in diet/appetite, Bruising Advised patient to contact Anticoagulation Clinic if any unusual bruising or bleeding, recent illness, changes in medication, or questions/concerns. PT/INR results, Coumadin dose instructions, and next PT/INR date communicated as noted by Pharmacist: Yes GORGE Alves 06/27/2023, 1:28 PM * Kirby Gates RP - 06/27/2023 11:25 AM EDT Coumadin Clinic (region specific) Objective Current Warfarin Dose As of 06/27/2023 Warfarin maintenance plan: 7.5 mg (2.5 mg x 3) every Mon, Sat; 5 mg (2.5 mg x 2) all other days INR Result As of 06/27/2023 INR goal: 3.0-3.5 INR used for dosin.3 (06/26/2023) Assessment & Plan Warfarin Plan As of 06/27/2023 Full warfarin instructions: 7.5 mg every Mon, Sat; 5 mg all other days No change documented: Kirby Gates [facility] Next INR check: 07/03/2023 I sent myG Repeat PT/INR in 1 week(s) Weekly dose: not changed Additional Dosing Information: Description GML WedFri, prefers Wed ([facility], [facility], or [facility]) Please also send myG Tech to contact patient with dose instructions as noted. Kirby Gates RPh 06/27/2023, 11:25 AM documented in this encounter Plan of Treatment Upcoming Encounters Date Type Department Care Team (Late st Contact Info) Description 07/02/2023 2:40 PM EDT Office Visit Nephrology [address] [place] [address] Aliyah Lacey MD [address] [place] [address] [place] [address] 07/03/2023 6:00 PM EDT Anticoagulation Pharmacy Call Center [address] [place] [address] [facility] 58 60 [place] [address] 07/08/2023 8:30 AM EDT [facility] [address] [facility] [place] [address] Valentina Laws, TANISHA 132 [place] [address] 08/05/2023 1:00 PM EDT Nurse Only Ancillary [address] [place] [address] [place], Nurse [address] [place] [address] 09/20/2023 8:00 AM EDT Laboratory Lab Mobile Phlebotomy [facility] [address] [place] [address] [facility], [facility] Mobile Home Draw [address] [place] [address] 09/24/2023 11:30 AM EDT Office Visit Nephrology, [facility] [address] [facility] [place] [address] ZeKary bliss PA-C [address] [facility] [place] [address] 10/22/2023 11:00 AM EDT Office Visit Cardiology, [facility] 132 [facility] [place] [address] Hadley Molina MD 132 [facility] [place] [address] 12/20/2023 8:00 AM EDT Laboratory Lab Mobile Phlebotomy [facility] [address] [place] [address] [facility], [facility] Mobile Home Draw [address] [place] [address] 12/26/2023 2:00 PM EST Office Visit Hematology/Oncology [facility] Lacy [place] [address] [facility] [address] [place] [phone] Bouchra Del Cid CRNP [address] [place] [address] 01/17/2024 8:00 AM EST Office Visit Family [address] [phone] Shara Ray MD [address] [place] [address] [place] [address] 03/27/2024 8:00 AM EST Laboratory Lab Mobile Phlebotomy [facility] [address] [place] [address] [facility], [facility] Mobile Home Draw [address] [place] [address] 06/09/2024 1:30 PM EDT Office Visit Allergy/Immunology [facility] [place] [address] [facility] [place] [address] Rae Ramirez PA-C 200 [facility] [place] [address] 06/24/2024 1:40 PM EDT Office Visit Family [address] [phone] Shara Ray MD [address] [place] [address] [place] [address] Scheduled Procedures Name Priority Associated Diagnoses Date/Ti [...] Additional history exists CKD PHOS USE SMARTSET 10616 03/21/2024 02/0 02/2023, 12/19/2022, 11/28/2022, Additional history exists Albumin/Creatinine Ratio 05/06/2024 024, 12/03/2022, 02/05/2022, Additional history exists TSH 06/06/2024 06/07/2023, 05/19, 06/28/2021, Additional history exists CKD HGB USE SMARTSET 46854 06/18/202406/18, 06/19/2023, 05/07/2023, Additional history exists DTaP,Tdap,and [...] this encounter Medical Devices Implanted Type Area Product Development Scientist Device Identifier Shelf Expiration Date Model / Serial / Lot Hulbert Suture Biocomposite - Sn/A - [id number] Implanted:Qty: 2 on 12/13/2021 by Moris Jimenez, DO at OR [facility] Left: Leg Lower [employer] 07/18/2024 [id number] / N/A / [id number] Vitoss Bbtrauma Foam Pack - [id number] - [id number] Implanted:Qty: 1 on 12/13/2021 by Moris Jimenez DO at OR [facility] Left: Leg Lower MICHA : TRAUMA 01/15/2022 / [id number] / [id number] documented as of this encounter Visit Diagnoses Diagnosis extermination supervisor current use of anticoagulant therapy- Primary History [...] Advance Directives occurred with: Patient Care Teams Library Services Assistant Relationship Specialty Start Date End Date Shara Ray MD [address] [place] [address] [place] [phone] PCP - General Family Medicine 03/08/23 documented as of this encounter
--- OUTSIDE RECORDS SUMMARY | 2023-07-10 16:36 | External Medical Summary | Summary of Care ---
Author Name Unknown Organization [facility] Address [address] [facility] [place] [address] Phone [phone] Care Team Providers Care Novelty Twister Tender Name Role Phone Shara Ray MD Primary Care Provide r Reason for Visit * Reason Comments Dosage Adjustment Via Phone (anticoag Cl inic) Encounter Details Date Type Department Care Team (Latest Contact Info) Description 06/26/2023 6:00 PM EDT Anticoagulation Pharmacy Call Center [address] [place] [address] [facility] [address] [place] [address] predatory animal exterminator current use of anticoagulant therapy*; History of [...] as of this encounter (statuses as of 06/26/2023) Medications Medication Sig Dispensed Refills Start Date [...] BEDTIME 200 Tablet 1 02/05/2023 Active Nystatin [id number] UNIT/ML Mouth/Throat SuspensionIndication s:Thrush Swish and swallow [...] as of this encounter (statuses as of 06/26/2023) Active Problems Problem Noted Date Diagnosed Date Major depressive disorder, recurrent, moderate 0 04/03/2023 Last Assessment & Plan: Mood stable on current dose celexa Other persistent atrial fibrillation 04/03/2023 Last Assessment & Plan: Rate controlled Continue coumadin Atherosclerosis of [place] co ronary artery without angina pectoris 04/03/2023 [...] of leg, left, subsequent encounter 09/2021 Overview: [facility] ER ulstrasound shows hematoma calf, INR 4.2, [...] in the Comments) Remote Patient Monitoring Vendor: [facility] Device(s): Connected Scale Self - Management Plan [...] & Plan: Symptoms well controlled on omeprazole predatory animal exterminator current use of anticoagulant therapy 0 05/10/2004 Overview: ICD-10 update of inactive term Rheumatic heart disease 03/05/2002 Old myocardial infarct 01/02/2001 Last Assessment & Plan: Continue Crestor 20 mg daily S/P mitral valve replacement Last Assessment & Plan: Chronic AC coumadin Atherosclerosis of [place] co ronary artery of [place] heart without angina pectoris documented as of this encounter (statuses as of 06/26/2023) Resolved Problems Problem Noted Date Diagnosed Date [...] IM/IV Chest Xray Additional Comments: Followed by guide setter - Dr. Rashel Sales [facility] Complicated UTI (urinary tract infection) 12/20/2021 05/17/2022 [...] Overview: Per CKD protocol #1 [employer]BIT-[employer] Research Other*[id number] 06/02/2010 04/18/2011 Overview: PROJECT: #[id number], SPONSOR: [employer]ov[employer], PI: Adolfo De Jesus MD [...] can be closed. CONTACT: Roberto Carlos Huertas, Catia Designer Type 2 diabetes mellitus wit h hemoglobin A1c goal of less than 7.0% 04/24/2010 08/29/2018 Overview: ICD-10 update of inactive term ACTIVE CASE MANAGEMENT Kassie Anthony, RN [phone] 05/10/19 10 12/05/2009 ADVANCE DIRECTIVE INFORMATION 05/09/2009 [...] as of this encounter (statuses as of 06/26/2023) Immunizations Name Administration Dates Next Due COVID-19 [...] as of this encounter Progress Notes * Kirby Gates RPh - 06/26/2023 4:23 PM EDT INR today still in process. Spoke with pt and instructed to take normal dose of coumadin 5mg today.Will follow up tomorrow with results. Kirby Gates, Pharm.D. Clinical Pharmacist [facility] ([facility]) (formerly Telepharmacy) 06/26/2023, 4:25 PM [phone] documented in this encounter Plan of Treatment Upcoming Encounters Date Type Department Care Team (Late st Contact Info) Description 06/27/2023 6:00 AM EDT Anticoagulation Pharmacy Call Center [address] [facility] [place] [address] [facility], [facility] 58 60 [facility] [place] [address] 07/02/2023 2:40 PM EDT Office Visit Nephrology [address] [place] [address] Aliyah Lacey MD [address] [place] [address] 07/08/2023 8:30 AM EDT [facility], [facility] [address] [facility] [place] [address] Valentina Laws, RN 132 [place] [address] 08/05/2023 1:00 PM EDT Nurse Only Ancillary [address] [place] [address] [place], Nurse [address] [place] [address] 09/20/2023 8:00 AM EDT Laboratory Lab Mobile Phlebotomy [facility] [address] [place] [address] [facility], [facility] Mobile Home Draw [address] [place] [address] 09/24/2023 11:30 AM EDT Office Visit Nephrology, [facility] [address] [place] [address] Kary Pena PA-C [address] [place] [address] 10/22/2023 11:00 AM EDT Office Visit Cardiology, [facility] [address] [facility] [place] [address] Hadley Molina MD [address] [place] [address] 12/20/2023 8:00 AM EDT Laboratory Lab Mobile Phlebotomy [facility] [address] [place] [address] [facility], [facility] Mobile Home Draw [address] [place] [address] 12/26/2023 2:00 PM EST Office Visit Hematology/Oncology [facility] [address] [facility] [place] [phone] Bouchra Del Cid CRNP [address] [place] [address] 01/17/2024 8:00 AM EST Office Visit Family [address] [phone] Shara Ray MD [address] [place] [address] [place] [address] 03/27/2024 8:00 AM EST Laboratory Lab Mobile Phlebotomy [facility] [address] [place] [address] [facility], [facility] Mobile Home Draw [address] [place] [address] 06/09/2024 1:30 PM EDT Office Visit Allergy/Immunology [facility] [place] [address] [facility] [place] [address] Rae Ramirez PA-C 200 [facility] [place] [address] 06/24/2024 1:40 PM EDT Office Visit Family [address] [phone] Shara Ray MD [address] [place] [address] [place] [address] Scheduled Procedures Name Priority Associated Diagnoses Date/Ti [...] 11/15/2022, 10/20, 07/03/2021, Additional history exists GFR 12/12/2023 06/12/2023, 04/18, 04/29/2023, Additional history exists CKD PHOS USE SMARTSET 93629 03/21/20240 02/2023, 12/19/2022, 11/28/2022, Additional history exists Albumin/Creatinine Ratio 05/06/2024 024, 12/03/2022, 02/05/2022, Additional history exists TSH 06/06/2024 06/07/2023, 05/19, 06/28/2021, Additional history exists CKD HGB USE SMARTSET 59121 06/18/202406/18, 06/19/2023, 05/07/2023, Additional history exists DTaP,Tdap,and [...] this encounter Medical Devices Implanted Type Area Instrumentation Technician Device Identifier Shelf Expiration Date Model / Serial / Lot Hazen Suture Biocomposite - Sn/A - [id number] Implanted:Qty: 2 on 12/13/2021 by Moris Jimenez DO at OR [facility] Left: Leg Lower [employer] 07/18/2024 [id number] / N/A / [id number] Vitoss Bbtrauma Foam Pack - [id number] - [id number] Implanted:Qty: 1 on 12/13/2021 by Moris Jimenez DO at OR [facility] Left: Leg Lower MICHA : TRAUMA 01/15/2022 / [id number] / [id number] documented as of this encounter Visit Diagnoses Diagnosis 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
--- OUTSIDE RECORDS SUMMARY | 2023-07-10 16:36 | External Medical Summary ---
Author Name Unknown Address Unknown Organization K01:[facility] [place] [address] [place] [address] Laboratory Report Ordering Provider Test Date Status SONIA PANTOJA 06/26/2023 10:17:00 Final Standing order for pt/inr. < br/>Please draw pt/inr every 1 to 4 weeks as requested.
Results to [facility] Anticoagulation Clinic

Warfarin Therapy
INR: 2.0-3.0 conventional anticoagulation
INR: 2.5-3.5 high intensity anticoagulation Observation Date Value Abnormality Reference (Units ) Status PT 06/26/2023 10:17:00 34.0 Above high normal 11 .6-15.2 (seconds) Final INR 06/26/2023 10:17:00 3.3 Above high normal 0. 8-1.2 Final Performing Location [facility] [address] [place] [facility] [id number]
--- OUTSIDE RECORDS SUMMARY | 2023-07-10 16:36 | External Medical Summary | Summary of Care ---
Author Name Unknown Organization [facility] Address [address] [place] [address] Phone [phone] Care Team Providers Care Ladies' Hat Trimmer Name Role Phone Shara Ray MD Primary Care Provide r Reason for Visit * Reason Onset Date Comments Order Request 06/21/2023 Portable O2 and nebulizer supplies Encounter Details Date Type Department Care Team (Late st Contact Info) Description 06/21/2023 Telephone Family Medicine [address] [place] [phone] Shara Ray MD [address] [place] [address] [place] [phone] Order Request (Portable O2 and nebulizer s... Allergies Active Allergy Reactions Criticality Noted Date [...] BEDTIME 200 Tablet 1 02/05/2023 Active Nystatin 458818 UNIT/ML Mouth/Throat SuspensionIndication s:Thrush Swish and swallow 5 mL in the morning and 5 mL at noon and 5 mL in the evening and 5 mL before bedtime. For thrush.. 240 mL 1 02/14/2023 Active Warfarin Sodium 2.5 MG Oral Tablet (Coumadin) Take 1 and 1/2 to 2 tablets by mouth daily as directed by [facility] 180 Tablet 3 03/06/2023 Active Nitroglycerin [...] Plan: Rate controlled Continue coumadin Atherosclerosis of [place] ronary artery without angina pectoris 04/03/2023 [...] leg, left, subsequent encounter 09/2021 Overview: [facility] ER ulstrasound shows hematoma calf, INR 4.2, [...] in the Comments) Remote Patient Monitoring Vendor: [facility] Device(s): Connected Scale Self - Management Plan [...] & Plan: Chronic AC coumadin Atherosclerosis of [place] co ronary artery of [place] heart without angina pectoris documented as of [...] IM/IV Chest Xray Additional Comments: Followed by business quality assurance analyst - Dr. Rashel Sales [facility] Complicated UTI (urinary tract infection) 12/20/2021 05/17/2022 [...] Overview: Per CKD protocol #1 [employer] Other*[id number] 06/02/2010 04/18/2011 Overview: PROJECT: #[id number], SPONSOR: [employer]anna[employer]ov[employer], PI: Adolfo De Jesus MD [...] can be closed. CONTACT: Roberto Carlos Huertas, Automation Qa Tester Type 2 diabetes mellitus wit h hemoglobin A1c goal of less than 7.0% 04/24/2010 08/29/2018 Overview: ICD-10 update of inactive term ACTIVE CASE MANAGEMENT Kassie Anthony, RN [phone] 05/10/19 10 12/05/2009 ADVANCE DIRECTIVE INFORMATION 05/09/2009 [...] encounter Miscellaneous Notes * Telephone Encounter - Omayra Rosales CMA - 06/26/2023 2:41 PM EDT Testing came. Order submitted through [employer] to [facility]. Testing sent to [facility]. * Telephone Encounter - Omayra Rosales CMA - 06/26/2023 2:06 PM EDT Never received fax. I called again and they are faxing it again with my name on it so hopefully I get to complete the order. * Telephone Encounter - Omayra Rosales CMA - 06/21/2023 11:35 AM EDT I started to order on [employer] for her portable O2 and the nebulizer supplies but we don't have the nocturnal pulse oximetry test that she had done. I called Dr. Sales's office at [facility] and they are faxing it to [phone]. Once I get that I will complete the order submision. documented in this encounter Plan of Treatment Upcoming Encounters Date Type Department Care Team (Late st Contact Info) Description 06/26/2023 6:00 PM EDT Anticoagulation Pharmacy Call Center [address] [facility] [place] [address] Ccps, [facility] 58 60 [facility] [address] 07/02/2023 2:40 PM EDT Office Visit Nephrology [address] [place] [address] Aliyah Lacey MD [address] [place], [place] [address] [address] 07/08/2023 8:30 AM EDT Home Visit [facility], [facility] [address] [facility] [place] [address] Valentina Laws, TANISHA 132 [facility] [place] [address] 08/05/2023 1:00 PM EDT Nurse Only Ancillary [address] [place] [address] Cheryley, Nurse [address] [place] [address] 09/20/2023 8:00 AM EDT Laboratory Lab Mobile Phlebotomy [facility] [address] [place] [address] [facility], [facility] Mobile Home Draw [address] [place] [address] 09/24/2023 11:30 AM EDT Office Visit Nephrology, [facility] 200 [facility] [place] [address] Kary Pena PA-C 200 [facility] [place] [address] 10/22/2023 11:00 AM EDT Office Visit Cardiology, [facility] [place] [address] Hadley Molina MD 132 [facility] [place] [address] 12/20/2023 8:00 AM EDT Laboratory Lab Mobile Phlebotomy [facility] [address] [place] [address] [facility], [facility] Home Draw [address] [place] [address] 12/26/2023 2:00 PM EST Office Visit Hematology/Oncology [facility] [address] [facility] [place] [address] Bouchra Del Cid CRNP [address] [facility] [place] [address] 01/17/2024 8:00 AM EST Office Visit Family Medicine [address] [place] [phone] Shara Ray MD [address] [place] [address] [place] [address] 03/27/2024 8:00 AM EST Laboratory Lab Mobile Phlebotomy [facility] [address] [place] [address] [facility], [facility] Draw [address] [place] [address] 06/09/2024 1:30 PM EDT Office Visit Allergy/Immunology [employer] [address] [place] [address] Rae Ramirez PA-C [address] [place] [address] 06/24/2024 1:40 PM EDT Office Visit Family Medicine [address] [place] [phone] Shara Ray MD [address] [place] [address] [place] [address] Scheduled Procedures Name Priority Associated Diagnoses Date/Ti [...] Additional history exists CKD PHOS USE SMARTSET 84867 03/21/2024 02/0 02/2023, 12/19/2022, 11/28/2022, Additional history exists Albumin/Creatinine Ratio 05/06/2024 024, 12/03/2022, 02/05/2022, Additional history exists TSH 06/06/2024 06/07/2023, 05/19, 06/28/2021, Additional history exists CKD HGB USE SMARTSET 07706 06/18/202406/18, 06/19/2023, 05/07/2023, Additional history exists DTaP,Tdap,and [...] this encounter Medical Devices Implanted Type Area Customer Success Manager Device Identifier Shelf Expiration Date Model / Serial / Lot Paden Suture Biocomposite - Sn/A - [id number] Implanted:Qty: 2 on 12/13/2021 by Moris Jimenez, DO at OR [facility] Left: Leg Lower [employer] 07/18/2024 [id number]-[id number] / N/A / [id number] Vitoss Bbtrauma Foam Pack - [id number] - [id number] Implanted:Qty: 1 on 12/13/2021 by Moris Jimenez, DO at OR [facility] Left: Leg Lower MICHA : TRAUMA 01/15/2022 [id number] / [id number] / [id number] documented as of this encounter Advance Directives Latest Code Status on File Code Status Date Activated Date Inactivated Comments Full Code 12/12/2021 7:18 PM 12/20/2021 6:08 PM This order reflects the patients wishes and were consensually agreed upon. Question Answer Comments Discussion of Advance Directives occurred with: Patient Care Teams Ladies' Hat Trimmer Relationship Specialty Start Date End Date Shara Ray MD [address] [place] [address] [place] [address] PCP - General Family Medicine 03/08/23 documented as of this encounter
--- OUTSIDE RECORDS SUMMARY | 2023-07-10 16:36 | External Medical Summary | Summary of Care ---
Author Name Unknown Organization [facility] Address [address] [place] [place] [address] Phone [phone] Care Team Providers Care Energy Administrator Name Role Phone Shara Ray MD Primary Care Provide r Reason for Visit * Reason Onset Date Comments Appointment 06/25/2023 Encounter Details Date Type Department Care Team (Late st Contact Info) Description 06/25/2023 Telephone Nephrology, [facility] 200 [place] [address] Aliyah Lacey MD [address] [place] [address] Appointment Allergies Active Allergy Reactions Criticality Noted [...] as of this encounter (statuses as of 06/25/2023) Medications Medication Sig Dispensed Refills Start Date [...] BEDTIME 200 Tablet 1 02/05/2023 Active Nystatin [id number] UNIT/ML Mouth/Throat SuspensionIndication s:Thrush Swish and swallow [...] as of this encounter (statuses as of 06/25/2023) Active Problems Problem Noted Date Diagnosed Date Major depressive disorder, recurrent, moderate 0 04/03/2023 Last Assessment & Plan: Mood stable on current dose celexa Other persistent atrial fibrillation 04/03/2023 Last Assessment & Plan: Rate controlled Continue coumadin Atherosclerosis of [place] ronary artery without angina pectoris 04/03/2023 [...] of leg, left, subsequent encounter 09/2021 Overview: [facility] ER ulstrasound shows hematoma calf, [...] in the Comments) Remote Patient Monitoring Vendor: [facility] Device(s): Connected Scale Self - Management Plan [...] & Plan: Symptoms well controlled on omeprazole halfway current use of anticoagulant therapy 0 05/10/2004 Overview: ICD-10 update of inactive term Rheumatic heart disease 03/05/2002 Old myocardial infarct 01/02/2001 Last Assessment & Plan: Continue Crestor 20 mg daily S/P mitral valve replacement Last Assessment & Plan: Chronic AC coumadin Atherosclerosis of [place] ronary artery of [place] heart without angina pectoris documented as of this encounter (statuses as of 06/25/2023) Resolved Problems Problem Noted Date Diagnosed Date [...] IM/IV Chest Xray Additional Comments: Followed by certified first assistant - Dr. Rashel Sales [facility] Complicated UTI (urinary tract infection) [...] Overview: Per CKD protocol #1 [employer] Other*[id number] 06/02/2010 04/18/2011 Overview: PROJECT: #[id number], SPONSOR: Aileen, PI: Adolfo De Jesus MD [...] can be closed. CONTACT: Roberto Carlos Huertas, Air Quality Technician Type 2 diabetes mellitus wit h [...] as of this encounter (statuses as of 06/25/2023) Immunizations Name Administration Dates Next Due COVID-19 [...] the money to buy more. Never true 04/05/20 24 Within the past 12 months, t [...] encounter Miscellaneous Notes * Telephone Encounter - Wilma Sanchez OSA [...] Team (Late st Contact Info) Description 06/26/2023 7:05 AM EDT Laboratory Lab Mobile Phlebotomy [facility] [address] [place] [address] [facility], [facility] Mobile Home Draw [address] [employer] [place] [address] 06/26/2023 6:00 PM EDT Anticoagulation Pharmacy Call Center WB [address] [facility] [place] [address] Ccps, [facility] 58 60 [facility] [place] [address] 07/02/2023 2:40 PM EDT Office Visit Nephrology [address] [place] [address] Aliyah Lacey MD [address] [place] [address] 07/08/2023 8:30 AM EDT [facility] Visit [facility], [facility] [address] [place] [address] Valentina Laws, RN [address] [place] [address] 08/05/2023 1:00 PM EDT Nurse Only Ancillary [address] [place] [address] [place], Nurse [address] [place] [address] 09/20/2023 8:00 AM EDT Laboratory Lab Mobile Phlebotomy [facility] [address] [place] [address] [facility], [facility] Mobile Home Draw [address] [place] [address] 09/24/2023 11:30 AM EDT Office Visit Nephrology, [facility] [address] [place] [address] Kary Pena PA-C [address] [place] [address] 10/22/2023 11:00 AM EDT Office Visit Cardiology, [facility] [place] [address] Hadley Molina MD [facility] [place] [address] 12/20/2023 8:00 AM EDT Laboratory Lab Mobile Phlebotomy [facility] [address] [place] [address] [facility], [facility] Mobile Home Draw [address] [place] [address] 12/26/2023 2:00 PM EST Office Visit Hematology/Oncology [facility] [address] [facility] [address] [place] [phone] Bouchra Del Cid [address] [address] 01/17/2024 8:00 AM EST Office Visit Family [address] [phone] Shara Ray MD [address] [place] [address] [place] [address] 03/27/2024 8:00 AM EST Laboratory Lab Mobile Phlebotomy [facility] [address] [place] [address] [facility], [facility] Mobile Home Draw [address] [place] [address] 06/09/2024 1:30 PM EDT Office Visit Allergy/Immunology [facility] [address] [facility] [place] [address] Rae Ramirez PA-C 200 [place] [address] 06/24/2024 1:40 PM EDT Office Visit Family Medicine [address] [phone] Shara Ray MD [address] [place] [address] [place] [address] Scheduled Procedures Name Priority Associated Diagnoses Date/Ti [...] Additional history exists CKD PHOS USE SMARTSET 64446 03/21/202402/2023, 12/19/2022, 11/28/2022, Additional history exists Albumin/Creatinine Ratio 05/06/2024 024, 12/03/2022, 02/05/2022, Additional history exists TSH 06/06/2024 06/07/2023, 05/19, 06/28/2021, Additional history exists CKD HGB USE SMARTSET 54588 06/18/202406/18, 06/19/2023, 05/07/2023, Additional history exists DTaP,Tdap,and [...] this encounter Medical Devices Implanted Type Area Yard Truck Driver Device Identifier Shelf Expiration Date Model / Serial / Lot [place] Suture Biocomposite - Sn/A - [id number] Implanted:Qty: 2 on 12/13/2021 by Moris Jimenez DO at OR [facility] Left: Leg Lower [employer] 07/18/2024 AR-2324BCC / N/A / [id number] Vitoss Bbtrauma Foam Pack - [id number] - [id number] Implanted:Qty: 1 on 12/13/2021 by Moris Jimenez DO at OR [facility] Left: Leg Lower MICHA : TRAUMA 01/15/2022 [id number] / [id number] / [id number] documented as of this encounter Advance Directives Latest Code Status on File Code Status Date Activated Date Inactivated Comments Full Code 12/12/2021 7:18 PM 12/20/2021 6:08 PM This order reflects the patients wishes and were consensually agreed upon. Question Answer Comments Discussion of Advance Directives occurred with: Patient Care Teams Energy Administrator Relationship Specialty Start Date End Date Shara Ray MD [address] [place] [address] [place] [address] PCP - General Family Medicine 03/08/23 documented as of this encounter
--- OUTSIDE RECORDS SUMMARY | 2023-07-10 16:36 | External Medical Summary | Summary of Care ---
Author Name Unknown Organization [facility] Address [address] [facility] [place] [address] Phone [phone] Care Team Providers Care Boat Laborer Name Role Phone Shara Ray MD Primary Care Provide r Reason for Visit * Reason Onset Date Comments Medical Nutrition Therapy 06/24/2023 Encounter Details Date Type Department Care Team (Latest Contact Info) Description 06/24/2023 10:30 AM EDT Scheduled Telephone [facility], [facility] [address] [facility] [place] [address] Vee Santacruz RDN [address] [facility] [place] [address] Type 2 diabetes mellitus with stage 3b chronic kidney disease, without long-term current use of insulin (HCC)* Allergies Active Allergy Reactions Criticality Noted Date [...] BEDTIME 200 Tablet 1 02/05/2023 Active Nystatin 986707 UNIT/ML Mouth/Throat SuspensionIndication s:Thrush Swish and swallow [...] Plan: Rate controlled Continue coumadin Atherosclerosis of [place] co ronary artery without angina pectoris 04/03/2023 [...] leg, left, subsequent encounter 09/2021 Overview: [facility] ER ulstrasound shows hematoma calf, INR [...] in the Comments) Remote Patient Monitoring Vendor: [facility] Device(s): Connected Scale Self - Management Plan [...] & Plan: Chronic AC coumadin Atherosclerosis of [place] co ronary artery of [place] heart without angina pectoris documented as of [...] IM/IV Chest Xray Additional Comments: Followed by lime kiln operator - Dr. Rashel Sales [facility] Complicated UTI (urinary tract infection) 12/20/2021 [...] Overview: Per CKD protocol #1 ORBIT-AF Research Other*[id number] 06/02/2010 04/18/2011 Overview: PROJECT: #[id number], SPONSOR: Geovanna&Geovanna, PI: Adolfo De Jesus MD [...] can be closed. CONTACT: Roberto Carlos Huertas, Reed Cleaner Type 2 diabetes mellitus wit h hemoglobin A1c goal of less than 7.0% 04/24/2010 08/29/2018 Overview: ICD-10 update of inactive term ACTIVE CASE MANAGEMENT Kassie Anthony, TANISHA [phone] 05/10/19 10 12/05/2009 ADVANCE DIRECTIVE INFORMATION 05/09/2009 04/26/2021 Overview: No, Advance Directive brochure given to patient. Dyslipidemia, goal LDL below 100 02/03/2009 09/24/2013 Overview: Per Lipid Taxonomy. Other abnormal glucose 03/13/200509/24 Mixed dyslipidemia 04/08/2002 Overview: Per Lipid Taxonomy. Anticoagulation management encounter [...] (15 years old or older) No 12/13/19 22 Cognitive Status Response Date of Assessm ent Because of a physical, menta l, or emotional condition, do you have serious difficulty concentrating, remembering, or making decisions? (5 years old or older) No 12/12/2021 documented as of this encounter Miscellaneous Notes * Telephone Encounter - Vee Santacruz, RASHAUN - 06/24/2023 11:33 AM EDT Images from the original note were not included. NUTRITION FOLLOW-UP NOTE - OUTPATIENT [facility] Name: Abdi Bowling [facility] Date: 06/24/2023 Time: 11:33 AM Patient was identified by name and date. After connecting to the patient via telephone, the patient was identified by name and date of . Patient was then informed that this was a telephone call only visit. The patient agreed to participate. Visit Disposition: Routine follow-up Total call duration was 13 minutes. Reason for Nutrition Follow-up: CKD Stage 3b NUTRITION ASSESSMENT: Client History 67 year old female enrolled in [facility] referred to Registered Dietitian for CKD Stage 3b.Patient reporting doing well. No questions for RDN. Noted in EHR slightly increase in A1c. Started on Jardiance per cardiology. Offered discussion/ education on DM nutrition therapy. Patient with mild engagement. No questions at this time. Suggestions provided. Reinforced RDN contact for any changes in needs in future. 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 Atherosclerosis of [place] coronary artery of [place] heart without angina pectoris I25.10 Dyslipidemia, goal LDL below 100 E78.5 History of TIA (transient ischemic attack) Z86.73 Varicose veins of both legs with edema I83.893 Permanent atrial fibrillation (HCC) I48.21 Tachy-sammi syndrome (HCC) I49.5 Old myocardial infarct I25.2 Status post bilateral knee replacements Z96.653 Type 2 diabetes mellitus with stage 3b chronic kidney disease, without long-term current use of insulin (HCC) E11.22, N18.32 Hypertensive heart and kidney disease with chronic diastolic congestive heart failure and stage 3b chronic kidney disease (HCC) I13.0, I50.32, N18.32 History of falling Z91.81 Generalized anxiety disorder F41.1 Chronic cough R05.3 Other injury of unspecified body region, subsequent encounter T14.8XXD Hematoma of leg, left, subsequent encounter S80.12XD Controlled substance agreement signed Z79.899 Closed nondisplaced fracture of left tibial tuberosity with routine healing S82.155D Iron deficiency anemia D50.9 Restless leg syndrome G25.81 Major depressive disorder, recurrent, moderate (HCC) F33.1 Other persistent atrial fibrillation (HCC) I48.19 Atherosclerosis of [place] coronary artery without angina pectoris I25.10 Food/Nutrition-Related History Patient reports appetite good right now. Breakfast: jello and yogurt, will have eggs and toast. Chocolate milk (12 oz) 2 meals per day (breakfast and dinner) Snacks between if needed Beverages, sweet tea per patient, water with sparkling water, lemonade, Pepsi "every now and then",or clear soda at home Reduced sugar OJ. Diet Recall/Food Logs Indicate: AREAS FOR IMPROVEMENT: High calorie, high fat and/or high sugar selections Poor meal distribution Frequent snacking Inconsistent carbohydrate intake Inadequate fruit and vegetable intake Food and Nutrient Intake and other pertinent information: NA Medications Changes/Updates: Jardiance ordered in EHR - 06/20/2023 PCP notes "will consider jardiance in the future"; Medication ordered by Cardiovascular medicine on 06/21/2023 06/21/2023 Cardiology notes "Will plan on using metolazone 2.5 mg every 7 to 10 days for fluid management " Patient reports taking every 7 days. Nutrition-Focused Physical Findings Full nutrition focused physical exam not able to be conducted: Telephonic nutrition assessment. Anthropometric Measurements Current Weight: Wt Readings from Last 1 Encounters: 06/24/23 63.5 kg (140 lb 1.6 oz) Wt Readings from Last 10 Encounters: 06/24/23 63.5 kg (140 lb 1.6 oz) 06/21/23 64 kg (141 lb) 06/20/23 64 kg (141 lb 3.2 oz) 06/04/23 66.1 kg (145 lb 11.2 oz) 05/14/23 64.2 kg (141 lb 9.6 oz) 05/09/23 65.2 kg (143 lb 11.2 oz) 05/07/23 64 kg (141 lb) 04/24/23 64.5 kg (142 lb 3.2 oz) 04/08/23 68 kg (150 lb) 03/19/23 67.3 kg (148 lb 6.4 oz) Per [facility] Weight Change: Weight rage has been 140 - 145 lbs over the past 2 month, recently change in diuretic therapy likely contributing to lower daily weights noted. Patient notes at 140 lbs starts to feel uncomfortable BMI Readings from Last 1 Encounters: 06/24/23 31.41 kg/m Biochemical Data, Medical Tests, and Procedures Latest Reference Range & Units 04/24/23 11:27 04/29/23 10:03 05/07/23 12:55 06/12/23 10:34 Sodium 135 - 146 mmol/L 134 (L) 132 (L) 134 (L) 134 (L) Potassium 3.5 - 5.1 mmol/L 3.9 3.8 3.9 4.2 Chloride 98 - 107 mmol/L 97 (L) 98 95 (L) 90 (L) CO2 22 - 32 mmol/L 23 22 27 32 BUN 6 - 20 mg/dL 81 (H) 36 (H) 27 (H) 39 (H) Creatinine 0.5 - 1.0 mg/dL 3.7 (H) 1.8 (H) 1.7 (H) 1.6 (H) Estimated Glomerular Filtration Rate >=60 mL/min 13 (L) 30 (L) 32 (L) 35 (L) Anion Gap 7 - 15 mmol/L 14 12 12 12 Glucose 70 - 120 mg/dL 216 (H) 119 120 202 (H) Calcium 8.4 - 10.2 mg/dL 10.0 10.1 10.0 10.4 (H) Magnesium 1.5 - 2.6 mg/dL 2.6 Estimated Average Glucose <126 mg/dL 163 (H) (L): Data is abnormally low (H): Data is abnormally high Hemoglobin AIC Results: Lab Results Component Value Date/Time HEMOGLOBIN A1C - [facility] 7.3 (H) 04/24/2023 11:27 AM HEMOGLOBIN A1C - [facility] 7.0 (H) 11/28/2022 09:57 AM HEMOGLOBIN A1C - [facility] 6.6 (H) 05/30/2022 02:25 PM HEMOGLOBIN A1C - [facility] 6.3 (H) 09/07/2019 11:01 AM HEMOGLOBIN A1C - [facility] 5.8 (H) 03/03/2019 01:39 PM HEMOGLOBIN A1C - [facility] 5.8 (H) 08/29/2018 08:13 AM SMBG: Not checking at home; PCP not recommending home BG monitoring at this time per patient. Previous Nutrition Diagnosis: Food and nutrition-related knowledge deficit related to Significant sodium intake as evidenced by Reported diet and/or activity recall Progress towards goals: Avoid cola; transition to clear soda. CURRENT NUTRITION DIAGNOSIS Inconsistent carbohydrate intake related to Poor meal distribution as evidenced by Skipping meals/ food recall/ snacking Inappropriate intake of types of carbohydrate related to Excess intake of sweetened beverages as evidenced by Reported diet and/or activity recall, A1c NUTRITION INTERVENTION: FOOD AND/OR NUTRIENT DELIVERY Meals Snacks Optimal beverage choices. NUTRITION EDUCATION Comprehensive nutrition education NUTRITION COUNSELING Strategies Nutrition Prescription: Diet: 2000 mg Sodium Consistent Carbohydrate Good Nutrition Reports 64 oz fluid restriction [facility] [facility] Al[facility]: (Reference 04/23/2023) Daily Calorie Needs: 1,237.67 Kcals Daily Protein Needs: 43 Grams protein (0.8 g/kg/AIBW) AIBW = 54kg Current Goals: Encouraged water as primary beverage. Patient with several sugar sweetened beverages throughout day(Sweet tea, juice, chocolate milk, soda). Education provided on role of increased BG with increasedintake of sweetened beverages. Encouraged to reduce sugar content by diluting with water/ regular, plain milk. Patient does not like sugar substitutes. Not willing to consume. Unclear if patient is interested in make changes at this time. Dietitian Action: See above. Recommendations to Ordering Provider: Continue current plan of nutrition care. Advised patient to discussed with nephrology new medication (Jardiance) Patient plans to start "cardiac dose" NUTRITION MONITORING AND EVALUATION: Plan: No return necessary; dietitian phone # given for future reference. 15 minutes Medical Nutrition Therapy Time In: 1533 (06/24/23 1533) Time Out: 1546 (06/24/23 1546) 15 min (8-22 min) 30 min (23-37 min) 45 min (38-52 min) 60 min (53-67 min) 75 min (68-82 min) 90 min (83-97 min) 105 min (98-113 min) Vee Santacruz RDN [facility] documented in this encounter Plan of Treatment Upcoming Encounters Date Type Department Care Team (Late st Contact Info) Description 06/26/2023 7:05 AM EDT Laboratory Lab Mobile Phlebotomy [facility] [address] [place] [address] [facility], [facility] Mobile Home Draw [address] [facility] [place] [address] 06/26/2023 6:00 PM EDT Anticoagulation Pharmacy Call Center [address] [place] [address] Ccps, [facility] [address] [facility] [place] [address] 07/02/2023 2:40 PM EDT Office Visit Nephrology [address] [place] [address] Aliyah Lacey MD [address] [place] [address] 07/08/2023 8:30 AM EDT Home Visit [facility], [facility] [place] [address] Valentina Laws, TANISHA [address] [facility] [place] [address] 08/05/2023 1:00 PM EDT Nurse Only Ancillary [address] [place] [address] [place], Nurse [address] [place] [address] 09/20/2023 8:00 AM EDT Laboratory Lab Mobile [facility]botomy [facility] [address] [place] [address] [facility], [facility] Mobile Home Draw [address] [place] [address] 09/24/2023 11:30 AM EDT Office Visit Nephrology, [facility] [address] [place] [address] Kary Pena PA-C [address] [place] [address] 10/22/2023 11:00 AM EDT Office Visit Cardiology, [facility] [address] [place] [address] Hadley Molina MD [address] [facility] [place] [address] 12/20/2023 8:00 AM EDT Laboratory Lab Mobile Phlebotomy [facility] [address] [place] [address] [facility], [facility] Mobile Home Draw [address] [place] [address] 12/26/2023 2:00 PM EST Office Visit Hematology/Oncology [facility] [address] [facility] [place] [phone] Bouchra Del Cid CRNP [address] [place] [address] [place] [address] 01/17/2024 8:00 AM EST Office Visit Family Medicine [address] [phone] Shara Ray MD [address] [place] [address] [place] [address] 03/27/2024 8:00 AM EST Laboratory Lab Mobile Phlebotomy [facility] [address] [place] [address] [facility], [facility] Mobile Home Draw [address] [place] [address] 06/09/2024 1:30 PM EDT Office Visit Allergy/Immunology [facility] [address] [facility] [place] [address] Rae Ramirez PA-C [address] [place] [address] 06/24/2024 1:40 PM EDT Office Visit Family Medicine [address] [place] [phone] Shara Ray MD [address] [place] [address] [place] [address] Scheduled Procedures Name Priority Associated Diagnoses Date/Ti [...] Additional history exists CKD PHOS USE SMARTSET 49683 03/21/2024 020 02/2023, 12/19/2022, 11/28/2022, Additional history exists Albumin/Creatinine Ratio 05/06/2024 024, 12/03/2022, 02/05/2022, Additional history exists TSH 06/06/2024 06/07/2023, 05/19, 06/28/2021, Additional history exists CKD HGB USE SMARTSET 15135 06/18/202406/18, 06/19/2023, 05/07/2023, Additional history exists DTaP,Tdap,and [...] this encounter Medical Devices Implanted Type Area Manager Acquisition Device Identifier Shelf Expiration Date Model / Serial / Lot [place] Suture Biocomposite - Sn/A - [id number] Implanted:Qty: 2 on 12/13/2021 by Moris Jimenez DO at OR [facility] Left: Leg Lower [employer] 07/18/2024 [id number] / N/A / [id number] Vitoss Bbtrauma Foam Pack - [id number] - [id number] Implanted:Qty: 1 on 12/13/2021 by Moris Jimenez DO at OR [facility] Left: Leg Lower MICHA : TRAUMA 01/15/20222 / [id number] / [id number] documented as of this encounter Visit Diagnoses Diagnosis Type 2 diabetes mellitus with stage 3b chronic kidney disease, without long-term current use of insulin (HCC)- Primary documented in this encounter Advance Directives Latest Code Status on File Code Status Date Activated Date Inactivated Comments Full Code 12/12/2021 7:18 PM 12/20/2021 6:08 PM This order reflects the patients wishes and were consensually agreed upon. Question Answer Comments Discussion of Advance Directives occurred with: Patient Care Teams Boat Laborer Relationship Specialty Start Date End Date Shara Ray MD [address] [place] [address] [place] [address] PCP - General Family Medicine 03/08/23 documented as of this encounter
--- OUTSIDE RECORDS SUMMARY | 2023-07-10 16:36 | External Medical Summary | Summary of Care ---
Author Name Unknown Organization [facility] Address [address] [place] [address] Phone [phone] Care Team Providers Care Family Law Legal Assistant Name Role Phone Shara Ray MD Primary Care Provide r Reason for Visit * Reason Onset Date Comments Appointment 06/25/2023 Encounter Details Date Type Department Care Team (Late st Contact Info) Description 06/25/2023 Telephone Nephrology, [facility] [address] [place] [address] Aliyah Lacey MD [address] [place] [address] Appointment Allergies Active Allergy Reactions Criticality Noted [...] BEDTIME 200 Tablet 1 02/05/2023 Active Nystatin 146446 UNIT/ML Mouth/Throat SuspensionIndication s:Thrush Swish and swallow [...] Plan: Rate controlled Continue coumadin Atherosclerosis of [place] co ronary artery without angina pectoris 04/03/2023 [...] of leg, left, subsequent encounter 09/2021 Overview: [facility] ER ulstrasound shows hematoma calf, INR [...] Comments) Remote Patient Monitoring Vendor: [facility] Device(s): Connected Scale Self - [...] & Plan: Symptoms well controlled on omeprazole group home current use of anticoagulant therapy 0 05/10/2004 Overview: ICD-10 update of inactive term Rheumatic heart disease 03/05/2002 Old myocardial infarct 01/02/2001 Last Assessment & Plan: Continue Crestor 20 mg daily S/P mitral valve replacement Last Assessment & Plan: Chronic AC coumadin Atherosclerosis of [place] co ronary artery of [place] heart without angina pectoris documented as of [...] the room") Medication Regimen Class A - ASUTIN-KORTNEY Combination Inhaler Remote Patient Monitoring Vendor: No Connected RPM Device(s): Traditional BP Cuff Self-Management plan Oral Antibiotic Rx (see medication list) High frequency nebulizer treatments every 4-6 hours around the clock Exacerbation plan Solumedrol 40mg IM/IV Chest Xray Additional Comments: Followed by office machine mechanic - Dr. Rashel Sales [facility] Complicated UTI (urinary tract infection) 12/20/2021 [...] Overview: Per CKD protocol #1 ORBIT-AF Research Other*[id number] 06/02/2010 04/18/2011 Overview: PROJECT: #[id number], SPONSOR: Aileen, PI: Adolfo De Jesus MD [...] can be closed. CONTACT: Roberto Carlos Huertas, Team Guide Type 2 diabetes mellitus wit h hemoglobin [...] encounter Miscellaneous Notes * Telephone Encounter - Suzie Landeros LPN [...] PM EDT Anticoagulation Pharmacy Call Center [address] [facility] [place] [address] Ccps, [facility] 58 60 [facility] [place] [address] 07/02/2023 2:40 PM EDT Office Visit Nephrology [address] [place] [address] Aliyah Lacey MD [address] [place] [address] 07/08/2023 8:30 AM EDT Home Visit [facility], [facility] 132 [facility] [address] Valentina Laws, RN 132 [place] [address] 08/05/2023 1:00 PM EDT Nurse Only Ancillary [address] [place] [address] Cheryley, Nurse [address] [place] [address] 09/20/2023 8:00 AM EDT Laboratory Lab Mobile Phlebotomy [facility] [address] [place] [address] [facility], [facility] Mobile Home Draw [address] [place], [place] [address] 09/24/2023 11:30 AM EDT Office Visit Nephrology, [facility] [address] [place] [address] Kary Pena PA-C [address] [place] [address] 10/22/2023 11:00 AM EDT Office Visit Cardiology, [facility] [address] [place] [address] Hadley Molina MD [address] [place] [address] 12/20/2023 8:00 AM EDT Laboratory Lab Mobile Phlebotomy [facility] [address] [place] [address] [facility], [facility] Mobile Home Draw [address] [place] [address] 12/26/2023 2:00 PM EST Office Visit Hematology/Oncology [facility] [address] [facility] [place] [phone] Bouchra Del Cid CRNP [address] [place] [address] 01/17/2024 8:00 AM EST Office Visit Family Medicine [address] [phone] Shara Ray MD [address] [place] [address] [place] [address] 03/27/2024 8:00 AM EST Laboratory Lab Mobile Phlebotomy [facility] [address] [place] [address] [facility], [facility] Mobile Home Draw [address] [place] [address] 06/09/2024 1:30 PM EDT Office Visit Allergy/Immunology [facility] [address] [facility] [place] [address] Rae Ramirez PA-C 200 [facility] [place] [address] 06/24/2024 1:40 PM EDT Office Visit Family Medicine [address] [place] [phone] Shara Ray MD [address] [place] [address] [place] [address] Scheduled Procedures Name Priority Associated Diagnoses Date/Ti [...] Additional history exists CKD PHOS USE SMARTSET 63041 03/21/2024 020 02/2023, 12/19/2022, 11/28/2022, Additional history exists Albumin/Creatinine Ratio 05/06/2024 024, 12/03/2022, 02/05/2022, Additional history exists TSH 06/06/2024 06/07/2023, 05/19, 06/28/2021, Additional history exists CKD HGB USE SMARTSET 24149 06/18/202406/18, 06/19/2023, 05/07/2023, Additional history exists DTaP,Tdap,and [...] this encounter Medical Devices Implanted Type Area Mopper Device Identifier Shelf Expiration Date Model / Serial / Lot [place] Suture Biocomposite - Sn/A - [id number] Implanted:Qty: 2 on 12/13/2021 by Moris Jimenez DO at OR [facility] Left: Leg Lower [employer] 07/18/2024 [id number] / N/A / [id number] Vitoss Bbtrauma Foam Pack - [id number] - [id number] Implanted:Qty: 1 on 12/13/2021 by Moris Jimenez DO at OR [facility] Left: Leg Lower MICHA : TRAUMA 01/15/2022 / [id number] / [id number] documented as of this encounter Advance Directives Latest Code Status on File Code Status Date Activated Date Inactivated Comments Full Code 12/12/2021 7:18 PM 12/20/2021 6:08 PM This order reflects the patients wishes and were consensually agreed upon. Question Answer Comments Discussion of Advance Directives occurred with: Patient Care Teams Family Law Legal Assistant Relationship Specialty Start Date End Date Shara Ray MD [address] [place] [address] [place] [phone] PCP - General Family Medicine 03/08/23 documented as of this encounter
--- OUTSIDE RECORDS SUMMARY | 2023-07-10 16:36 | External Medical Summary ---
Author Name Unknown Address Unknown Organization K01:LABORATORY [facility] - [address] [place] [address] Laboratory Report Ordering Provider Test Date Status TOÑA HONG 06/26/2023 10:17:00 Final Observation Date Value Abnormality Reference (Units ) Status BUN 06/26/2023 10:17:00 50 Above high normal 6-20 (mg/dL) Final Creatinine 06/26/2023 10:17:00 1.7 Above high normal 0.5-1.0 (mg/dL) Final Glomerular filtration rate/1.73 sq M.predicted [Volume Rate/Area] in Serum, Plasma or Blood by Creatinine-based formula (CKD-EPI) 06/26/2023 10:17:00 32 Below low normal >=60 (mL/min) Final eGFR is calculated based on the CKD-EPI 2020 equation Sodium 06/26/2023 10:17:00 135 135-146 (m mol/L) Final Potassium 06/26/2023 10:17:00 4.0 3.5-5.1 (m mol/L) Final Cl 06/26/2023 10:17:00 89 Below low normal 98- 107 (mmol/L) Final CO2 06/26/2023 10:17:00 34 Above high normal 22 -32 (mmol/L) Final Anion gap 06/26/2023 10:17:00 12 7-15 (mmol /L) Final Glucose 06/26/2023 10:17:00 188 Above high normal 70 -120 (mg/dL) Final Calcium 06/26/2023 10:17:00 9.9 8.4-10.2 ( mg/dL) Final Performing Location LABORATORY [facility] - [address] [place] [address]
--- OUTSIDE RECORDS SUMMARY | 2023-07-10 16:36 | External Medical Summary ---
Author Name Unknown Address Unknown Organization K01:[facility] [place] [address] [place] [address] Laboratory Report Ordering Provider Test Date Status CHERIE VILLAR 06/26/2023 10:17:00 Final Deficient: <20 ng/mL
Ins ufficient: 20-29 ng/mL
Recommended/Optimum:30-50 ng/mL

Vitamin D intoxication is rare. If suspicious of Vitamin D toxicity, evaluation of serum Calcium and PTH is recommended. Observation Date Value Abnormality Reference (Units ) Status 25-OH Vitamin D total 06/26/2023 10:17:00 79 >19 (ng/mL) Final Performing Location LABORATORY [facility] - [address] [place] [address]
--- OUTSIDE RECORDS SUMMARY | 2023-07-10 16:36 | External Medical Summary ---
Author Name Unknown Address Unknown Organization K01:[facility] [place] [address] [place] [address] Laboratory Report Ordering Provider Test Date Status CHERIE VILLAR 06/26/2023 10:17:00 Final Observation Date Value Abnormality Reference (Units ) Status Parathyrin.intact [Mass/volume] in Serum or Plasma 06/26/2023 10:17:00 165 Above high normal 15-65 (pg/mL) Final Performing Location [facility] [place] [address] [place] [id number]
--- OUTSIDE RECORDS SUMMARY | 2023-07-10 16:37 | External Medical Summary | Summary of Care ---
Author Name Unknown Organization [facility] Address [address] [facility] [place] [address] Phone [phone] Care Team Providers Care Tax Credit Leasing Consultant Name Role Phone Shara Ray MD Primary Care Provide r Reason for Visit * Reason Comments Follow Up Encounter Details Date Type Department Care Team (Late st Contact Info) Description 06/21/2023 2:30 PM EDT Office Visit Cardiology, [facility] [address] [address] Hadley Molina MD [address] [address] S/P mitral valve replacement*; Permanent atrial fibrillation (HCC) Allergies Active Allergy Reactions Criticality Noted Date [...] as of this encounter (statuses as of 06/21/2023) Medications Medication Sig Dispensed Refills Start Date [...] for Cough. 30 Capsule 1 2 Active D3-1000 25 MCG (1000 UT) Oral Capsule (Cholecalciferol) Take 1 Capsule by mouth in the morning. 0 Active Magnesium Glycinate 665 MG Oral CapsuleIndications: [...] Tablet 1 3 02/05/20 24 Active Nystatin 906476 UNIT/ML Mouth/Throat SuspensionIndicatio ns:Thrush Swish and swallow [...] the morning. 90 Tablet 3 4 Active metOLazone 5 MG Oral Tablet (Zaroxolyn) Take one 1/2 hour prior to torsemide in the morning on days directed 12 Tablet 5 4 Active metOLazone 5 MG Oral Tablet (Zaroxolyn) Take one 1/2 hour prior to torsemide in the morning on days directed 12 Tablet 5 4 06/21/19 24 Discontinued documented as of this encounter (statuses as of 06/21/2023) Active Problems Problem Noted Date Diagnosed Date Major depressive disorder, recurrent, moderate 0 04/03/2023 Last Assessment & Plan: Mood stable on current dose celexa Other persistent atrial fibrillation 04/03/2023 Last Assessment & Plan: Rate controlled Continue coumadin Atherosclerosis of [place] co ronary artery without angina pectoris 04/03/2023 [...] of leg, left, subsequent encounter 09/2021 Overview: [facility] ER ulstrasound shows hematoma calf, [...] in the Comments) Remote Patient Monitoring Vendor[place] [facility] [place]s): Connected Scale Self [...] Status post bilateral knee replacements 01/28/20 19 Tachy-chris syndrome 02/14/2018 Permanent atrial fibrillation 12/18/2017 Last [...] & Plan: Chronic AC coumadin Atherosclerosis of [place] co ronary artery of [place] heart without angina pectoris documented as of this encounter (statuses as of 06/21/2023) Resolved Problems Problem Noted Date Diagnosed Date [...] IM/IV Chest Xray Additional Comments: Followed by director of enterprise architecture - Dr. Rashel Sales [facility] Complicated UTI (urinary tract infection) [...] Overview: Per CKD protocol #1 [employer] Other*[id number] 06/02/2010 04/18/2011 Overview: PROJECT: #[id number], SPONSOR: [employer], PI: Adolfo De Jesus MD SUMMARY: Observational [...] can be closed. CONTACT: Roberto Carlos Huertas, Electro Tech Type 2 diabetes mellitus wit h hemoglobin [...] as of this encounter (statuses as of 06/21/2023) Immunizations Name Administration Dates Next Due COVID-19 mRNA, LNP-s, No Pre serve, 2-Dose Series (Moderna) 04/19/2020,03/22/2020 COVID-19, MRNA-LNP, 23-24, P F, 30 MCG/0.3 mL, 12 YRS AND ABOVE, IM (Headplay-Comirnaty) 12/03/2022 COVID-19, mRNA, LNP-s, PF, B ooster, [...] Date Smoking Tobacco: Never Smokeless Tobacco: Never Tobacco Cessation:Counseling Given: Not Answered Comments:No passive smoke exposures Alcohol Use Standard Drinks/Week Comments Yes 7 [...] Sign Reading Time Taken Comments Blood Pressure 128/68 06/21/2023 2:40 PM EDT Pulse 76 06/21/2023 2:40 PM EDT Temperature - - Respiratory Rate - - Oxygen Saturation 97% 06/21/2023 2:40 PM EDT Inhaled Oxygen Concentration - - Weight 64 kg (141 lb) 06/21/2023 2:40 PM EDT Height - - Body Mass Index 31.61 06/04/2023 1:41 PM EDT documented in this encounter Functional Status Functional [...] as of this encounter Progress Notes * Hadley Molina MD - 06/21/2023 2:30 PM EDT June 21, 2023 Cardiology Follow Up Referring Provider: PCP: DERRICK OLIVERA [address] [place] [address] [place] [address] [phone] Chief Complaint: filling up with fluid SUBJECTIVE: Abdi Bowling is a 67 year old year old female with ongoing cardiac issues 1. 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 2. Chronic atrial fibrillation with tachy Chris syndrome 3. Past embolic myocardial infarction and TIA, on chronic anticoagulation 4. Type 2 diabetes mellitus. 5. Hyperlipidemia. 6. Chronic renal insufficiency. 7. Status post LINQ insertion, March 31, 2021 8. Chronic heart failure with preserved ejection fraction 9. Chronic iron deficiency anemia on infusion therapy Patient presents today on requested follow-up Has had difficulties with intermittent worsening edema of the abdominal wall and lower extremities predominantly. Did respond appropriately to single dose of metolazone with good diuresis. Higher titrated doses of torsemide made little difference. Currently up 3 lb and feels full No fevers or chills. No bleeding difficulties. Follow a strict diet and fluid management Can see her neck veins distend when fluid retention occurs No syncope or near syncope no tachy palpitations. Loop recorder without significant arrhythmias A Complete Review of Systems is as stated above or negative. 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 Z79.01 S/P mitral valve replacement Z95.2 Gastroesophageal reflux disease with esophagitis without hemorrhage K21.00 Generalized osteoarthritis M15.9 Hypothyroidism, postablative E89.0 Atherosclerosis of [place] coronary artery of [place] heart without angina pectoris I25.10 Dyslipidemia, goal LDL below 100 E78.5 History of TIA (transient ischemic attack) Z86.73 Varicose veins of both legs with edema I83.893 Permanent atrial fibrillation (HCC) I48.21 Tachy-chris syndrome (HCC) I49.5 Old myocardial infarct I25.2 [...] moderate (HCC) F33.1 Other persistent atrial fibrillation ([facility]) I48.19 Atherosclerosis of [place] coronary artery without angina pectoris I25.10 Review of patient's allergies indicates: Allergen Reactions Budesonide Other (Please comment) trouble breathing Hydroxyzine Other reaction(s): DYSTONIA Metformin Other reaction(s): DIARRHEA Parsley Seed Other reaction(s): AGITATION Vincent Inhibitors cough Gabapentin Neuro complications (Please comment) confusion Lovenox [Enoxaparin] Oxycodone " numb all over" Phenothiazines Unknown Prochlorperazine Neuro complications (Please comment) dystonia Tetracycline Nausea/vomiting Current Outpatient Medications Medication Sig Dispense Refill acetaminophen (TYLENOL) 500 MG Tablet Take 1 Tablet by mouth every 6 hours as needed for Pain. milk of magnesia (MOM) 400 MG/5ML suspension Take by mouth daily as needed for Constipation. Benzonatate 100 MG Oral Capsule (Tessalon Perles) Take by mouth 1 Capsule as needed in the morning AND 1 Capsule as needed at noon AND 1 Capsule as needed in the evening for Cough. 30 Capsule 1 D3-1000 25 MCG (1000 UT) Oral Capsule (Cholecalciferol) Take 1 Capsule by mouth in the morning. Magnesium Glycinate 665 MG Oral Capsule One daily 100 Capsule 1 Omeprazole 20 MG Oral Capsule Delayed Release (PriLOSEC) Take 1 Capsule by mouth in the morning. 100 Capsule 1 Estrogens Conjugated 0.625 MG/GM Vaginal Cream (Premarin) ADMINISTER INTO THE VAGINA AT BEDTIME DIRECTED 90 g 2 Albuterol Sulfate HFA 108 (90 Base) MCG/ACT Inhalation Aerosol Solution INHALE TWO PUFFS BY MOUTH EVERY MORNING - TWO PUFFS EVERY EVENING - AND EVERY 4 HOURS NEEDED FOR WORSENING COUGH, CHEST TIGHTNESS, FOR WHEEZING OR FOR SHORTNESS OF BREATH 54 g 2 Folic Acid 1 MG Oral Tablet TAKE ONE TABLET BY MOUTH EVERY MORNING 100 Tablet 1 rOPINIRole HCl 2 MG Oral Tablet (Requip) Take 1 Tablet by mouth in the morning and 1 Tablet at noonand 1 Tablet before bedtime. (Patient taking differently: Take 1 Tablet by mouth at bedtime.) 300 Tablet 3 Lidocaine HCl 4 % External Solution Apply topically to affected area once for 1 dose. Apply to mouth ulcers as needed 50 mL 0 Sucralfate 1 GM/10ML Oral Suspension (Carafate) TAKE 10 ML BY MOUTH NEEDED IN THE MORNING AND 10ML NEEDED AT NOON AND 10 ML NEEDED IN THE EVENING AND 10 ML NEEDED BEFORE BEDTIME. 420 mL 1 Metoprolol Tartrate 25 MG Oral Tablet (Lopressor) TAKE ONE TABLET BY MOUTH TWICE A DAY IN THE MORNING AND BEFORE BEDTIME 200 Tablet 1 Nystatin 905011 UNIT/ML Mouth/Throat Suspension Swish and swallow 5 mL in the morning and 5 mL at noon and 5 mL in the evening and 5 mL before bedtime. For thrush.. 240 mL 1 Warfarin Sodium 2.5 MG Oral Tablet (Coumadin) Take 1 and 1/2 to 2 tablets by mouth daily as directed by [facility] 180 Tablet 3 traMADol HCl 50 MG Oral Tablet (Ultram) Take 1 Tablet by mouth 2 times a day as needed for Pain, Severe. (Patient taking differently: Take 1 Tablet by mouth 4 times a day.) 60 Tablet 0 Combivent Respimat 20-100 MCG/ACT Inhalation Aerosol Solution (Ipratropium- Albuterol) inhale 1 pufffour times daily As Needed for Shortness Of Breath 12 g 1 Ipratropium-Albuterol 0.5-2.5 (3) MG/3ML Inhalation Solution (Duoneb) inhale 1 vial (3 mL) via nebulizer four times daily As Needed for shortness of breath or wheezing 1080 mL 2 Citalopram Hydrobromide 10 MG Oral Tablet (CeleXA) TAKE ONE TABLET BY MOUTH EVERY MORNING 100 Tablet 1 Levothyroxine Sodium 100 MCG Oral Tablet (Levoxyl) TAKE ONE TABLET by MOUTH DAILY FIRST THING IN THE MORNING AT LEAST 30 MINUTES PRIOR TO BREAKFAST OR OTHER MEDS 100 Tablet 1 Torsemide 100 MG Oral Tablet (Demadex) Take 0.5 Tablets by mouth in the morning. 45 Tablet 3 Rosuvastatin Calcium 10 MG Oral Tablet (Crestor) Take 1 Tablet by mouth in the morning. 100 Tablet 1 Metoclopramide HCl 10 MG Oral Tablet (Reglan) TAKE ONE TABLET BY MOUTH EVERY MORNING 30 MINUTES BEFORE A MEAL 90 Tablet 1 Azelastine HCl 0.1 % Nasal Solution (Astelin) ADMINISTER INTO NOSTRIL TWO SPRAYS IN THE MORNING ANDTWO SPRAYS BEFORE BEDTIME 30 mL 2 Buprenorphine 5 MCG/HR Transdermal Patch Weekly (Butrans) Apply 1 patch to skin once a week as directed Nebulizer/Tubing/Mouthpiece Kit Use as directed 1 Kit 1 oxygen IN GAS Use 2 L/min(Oxygen) as directed at bedtime. Ordered by pulmonary in Mar 2023. valACYclovir HCl 1 GM Oral Tablet (Valtrex) Take 2 Tablets by mouth in the morning and 2 Tablets before bedtime. for cold sores. 4 Tablet 11 Spironolactone 25 MG Oral Tablet (Aldactone) Take one-half Tablet by mouth in the morning. 45 Tablet 1 Empagliflozin 10 MG Oral Tablet (Jardiance) Take 1 Tablet by mouth in the morning. 90 Tablet 3 metOLazone 5 MG Oral Tablet (Zaroxolyn) Take one 1/2 hour prior to torsemide in the morning on daysdirected 12 Tablet 5 Nitroglycerin 0.4 MG Sublingual Tablet Sublingual (Nitrostat) PLACE 1 TABLET UNDER THE TONGUE EVERY5 MINUTES UP TO 3 DOSES NEEDED FOR CHEST PAIN. IF NO RELIEF CALL 911 OR GO TO ER (Patient not taking: Reported on 06/21/2023) 75 Tablet 0 No current facility-administered medications for this visit. OBJECTIVE/PHYSICAL EXAMINATION: BP 128/68 | Pulse 76 | Wt 64 kg (141 lb) | SpO2 97% | BMI 31.61 kg/m | BSA 1.59 m General: no acute distress and stated age Head: normocephalic, no masses, lesions, tenderness or abnormalities Eyes: conjunctiva are pink and non-injected, sclera clear Throat: clear Nares: without discharge Neck: supple, no adenopathy, no bruits, normal jugular venous pulse, no hepatojugular reflux, no carotid bruits Chest: normal shape and normal respiratory effort Lungs: clear to auscultation and percussion Cardiac Exam: - irregular irregular, grade 1/6 systolic murmur with crisp mechanical valve sounds, gallop or rub - normal S-1, normal S-2 Abdomen: abdomen soft, non-tender, no abnormal masses, no hepatosplenomegaly, no abdominal bruit, no femoral bruit Musculoskeletal: no gait disturbance, no joint inflammation, no deforming arthritis Extremities: -2+ lower extremity edema left greater right no palpable cord or Homans sign. Neuro: grossly normal exam Data: Echocardiogram July 19, 2022 There was atrial fibrillation during the examination. The left ventricular cavity size is normal. The LV wall thickness is normal. The left ventricular wall motion is normal. The qualitative LV ejection fraction is 60-64% (normal). The left atrium is severely enlarged (>48 ml/m^2,). The right atrium is moderately enlarged. Mild aortic valve sclerosis is present. There is a mitral valve central disc (Roe-Medtronic type) mechanical prosthesis with surrounding heavy pannus but preserved leaflet mobility with mildly elevated transvalvular velocity and gradient. Mild aortic valve regurgitation is present. Severe tricuspid regurgitation is present. The estimated pulmonary artery systolic pressure is 35-40mm Hg. Lipid Panel Results: Results for orders placed or performed in visit on 02/13/23 LIPID PANEL WITH DIRECT LDL IF TG IS HIGH Result Value Ref Range Triglycerides 92 <=174 mg/dL Cholesterol 125 <200 mg/dL HDL Cholesterol 51 >49 mg/dL Non-HDL Cholesterol 74 <=159 mg/dL LDL Cholesterol 56 <=129 mg/dL ASSESSMENT: 67 year old year old female Complex issues of longstanding rheumatic valvular heart disease status post mitral valve replacement 1993. Has chronic elevation in right heart pressures and significant tricuspid insufficiency. Associated acute on chronic right-sided diastolic/valvular heart failure with preserved ejection fraction Persistent atrial fibrillation Once again with worsening symptoms of right heart failure with increased abdominal girth and lower extremity edema Increase torsemide doses in the past not been effective but did respond to single dose p.r.n. metolazone with stable renal function As availability develops consider tricuspid valve intervention PLAN: Patient following strict sodium and fluid management Will plan on using metolazone 2.5 mg every 7 to 10 days for fluid management Weekly BMP DISPOSITION: Routine appointment in 3 months Hadley Molina MD Cardiology [address] [address] documented in this encounter Nursing Notes * Sarah Argueta CMA - 06/21/2023 2:37 PM EDT Examination Room: 13 Name: Abdi Bowling Date of : (1955) Reason for Visit: 8 week Interim Hospitalization(s): none Problems/Concerns: starting to go back up with fluid. Chest Pain/SOB: denied chest pain. Always SOB. [facility] is a way you can talk to your provider online through e-mail. Would you like to sign up? I can activate it for you? ALREADY ACTIVE Patient was instructed to not get up on the exam table until directed and assisted by their provider; patient is to remain seated in the chair/ wheelchair/ exam table for fall prevention and safety reasons. Patient is aware to have assistance to step down off exam table with personnel. Patient voiced full comprehension of instructions. documented in this encounter Plan of Treatment Upcoming Encounters Date Type Department Care Team (Late st Contact Info) Description 06/24/2023 10:30 AM EDT Scheduled Telephone [facility], [facility] [address] [facility] [place] [address] Vee Santacruz RDN [address] [facility] [place] [address] 06/24/2023 11:00 AM EDT [facility] [address] [facility] [place] [phone] Bouchra Del Cid CRNP [address] [place] [address] [place] [address] 06/26/2023 7:05 AM EDT Laboratory Lab Mobile Phlebotomy [facility] [email or web address] [place] [address] [facility], [facility] Mobile Home Draw [email or web address] [place] [address] 06/26/2023 6:00 PM EDT Anticoagulation Pharmacy Call Center [address] [facility] [address] [place] [address] [facility], [facility] [address] [facility] [place] [address] 07/04/2023 2:40 PM EDT Office Visit Nephrology [address] [place] [address] Aliyah Lacey MD [address] [place] [address] 07/08/2023 8:30 AM EDT Home Visit [facility], [facility] [address] [place] [address] Valentina Laws, RN [address] [place] [address] 08/05/2023 1:00 PM EDT Nurse Only Ancillary [address] [place] [address] [place], Nurse [address] [place] [address] 09/20/2023 8:00 AM EDT Laboratory [facility] [address] [place] [address] [facility] Mobile Home Draw [address] [place] [address] 09/24/2023 11:30 AM EDT Office Visit Nephrology, [facility] [address] [address] Kary Pena PA-C [address] [place] [address] 10/22/2023 11:00 AM EDT [facility] [address] [place] [address] Hadley Molina MD [address] [place] [address] 12/20/2023 8:00 AM EDT Laboratory [facility] [address] [place] [address] [facility] Mobile Home Draw [address] [place] [address] 01/17/2024 8:00 AM EST Office Visit [address] [phone] Shara Ray MD [address] [place] [address] [place] [address] 03/27/2024 8:00 AM EST Laboratory [facility] [address] [place] [address] [facility] Mobile Home Draw [address] [place] [address] 06/09/2024 1:30 PM EDT Office Visit Allergy/Immunology [facility] [address] [facility] [place] [address] Rae Ramirez PA-C [address] [facility] [place] [address] 06/24/2024 1:40 PM EDT Office Visit [address] [place] [phone] Shara Ray MD [address] [place] [address] [place] [address] Scheduled Orders Name Type Priority Associated Diagnoses Orde r Schedule BASIC METABOLIC PANEL Lab Routine S/P mitral valve replacement Permanent atrial fibrillation (HCC) Every Week for 12 Occurrences starting 06/21/2023 until 06/20/2024 Scheduled Procedures Name Priority Associated Diagnoses Date/Ti me COLONOSCOPY FLEXIBLE PROXIMAL DIAGNOSTIC Recall Screen for colon cancer Health Maintenance Due Date Last Done Comments Cologuard 1998 Sigmoidoscopy 1998 Fecal Occult Blood Test 03/26/2014 03/26/19 14, 11/20/2010, 11/09/2009 *COPD SEVERITY VERIFIED BY PFT 08/24/2021 Colonoscopy 02/23/2023 02/24/2020, 07/2020, 07/16/2013, Additional history exists Colorectal Cancer Screening 02/23/2023 Diabetic Eye Exam 07/31/2023 07/30/2022, , 12/27/2020, Additional history exists Diabetic Foot Exam 07/31/2023 07/30/2022, 0 09/02/2019, 08/29/2018, Additional history exists HbA1c 10/25/2023 04/24/2023, 11/18, 05/30/2022, Additional history exists Mammogram 11/16/2023 11/15/2022, 10/20, 07/03/2021, Additional history exists GFR 12/12/2023 06/12/2023, 04/18, 04/29/2023, Additional history exists CKD PHOS USE SMARTSET 36085 03/21/2024 020 02/2023, 12/19/2022, 11/28/2022, Additional history exists Albumin/Creatinine Ratio 05/06/2024 024, 12/03/2022, 02/05/2022, Additional history exists TSH 06/06/2024 06/07/2023, 05/19, 06/28/2021, Additional history exists CKD HGB USE SMARTSET 37052 06/18/202406/18, 06/19/2023, 05/07/2023, Additional history exists DTaP,Tdap,and [...] this encounter Medical Devices Implanted Type Area Food Service Attendant Device Identifier Shelf Expiration Date Model / Serial / Lot [place] S[employer]ocomposite - Sn/A - [id number] Implanted:Qty: 2 on 12/13/2021 by Moris Jimenez, DO at OR [facility] Left: Leg Lower [employer] 07/18/2024 [id number] / N/A / [id number] [employer] Bbtrauma Foam Pack - [id number] - [id number] Implanted:Qty: 1 on 12/13/2021 by Moris Jimenez, DO at OR [facility] Left: Leg Lower MICHA : TRAUMA 01/15/2022 / [id number] / [id number] documented as of this encounter Visit Diagnoses Diagnosis S/P mitral valve replacement- Primary Heart valve replaced by other means Permanent atrial fibrillation (HCC) Atrial fibrillation documented in this encounter Advance Directives Latest Code Status on File Code Status Date Activated Date Inactivated Comments Full Code 12/12/2021 7:18 PM 12/20/2021 6:08 PM This order reflects the patients wishes and were consensually agreed upon. Question Answer Comments Discussion of Advance Directives occurred with: Patient Care Teams Tax Credit Leasing Consultant Relationship Specialty Start Date End Date Shara Ray MD [address] [place] [address] [place] [address] PCP - General Family Medicine 03/08/23 documented as of this encounter
--- OUTSIDE RECORDS SUMMARY | 2023-07-10 16:37 | External Medical Summary | Summary of Care ---
Author Name Unknown Organization [facility] Address [address] [facility] [place] [address] Phone [phone] Care Team Providers Care Typewriter Mechanic Name Role Phone Shara Ray MD Primary Care Provide r Reason for Visit * Reason Comments Follow Up Return Encounter Details Date Type Department Care Team (Late st Contact Info) Description 06/24/2023 11:00 AM EDT Office Visit Hematology/Oncology [facility] [place] [address] [place] [phone] Bouchra Del Cid CRNP [address] [facility] [place] [address] Iron deficiency anemia, unspecified iron deficiency anemia type*; Restless leg syndrome Allergies Active Allergy Reactions Criticality Noted Date [...] as of this encounter (statuses as of 06/24/2023) Medications Medication Sig Dispensed Refills Start Date [...] BEDTIME 200 Tablet 1 02/05/2023 Active Nystatin 034528 UNIT/ML Mouth/Throat SuspensionIndication s:Thrush Swish and swallow 5 mL in the morning and 5 mL at noon and 5 mL in the evening and 5 mL before bedtime. For thrush.. 240 mL 1 02/14/2023 Active Warfarin Sodium 2.5 MG Oral Tablet (Coumadin) Take 1 and 1/2 to 2 tablets by mouth daily as directed by [facility] 180 Tablet 3 03/06/2023 Active Nitroglycerin [...] as of this encounter (statuses as of 06/24/2023) Active Problems Problem Noted Date Diagnosed Date Major depressive disorder, recurrent, moderate 0 04/03/2023 Last Assessment & Plan: Mood stable on current dose celexa Other persistent atrial fibrillation 04/03/2023 Last Assessment & Plan: Rate controlled Continue coumadin Atherosclerosis of ak chin co ronary artery without angina pectoris 04/03/2023 [...] of leg, left, subsequent encounter 09/2021 Overview: [facility] ER ulstrasound shows hematoma calf, INR [...] the Comments) Remote Patient Monitoring Vendor: [facility] Device(s): Connected Scale Self [...] & Plan: Symptoms well controlled on omeprazole residential current use of anticoagulant therapy 0 05/10/2004 Overview: ICD-10 update of inactive term Rheumatic heart disease 03/05/2002 Old myocardial infarct 01/02/2001 Last Assessment & Plan: Continue Crestor 20 mg daily S/P mitral valve replacement Last Assessment & Plan: Chronic AC coumadin Atherosclerosis of [place] co ronary artery of ak chin heart without angina pectoris documented as of this encounter (statuses as of 06/24/2023) Resolved Problems Problem Noted Date Diagnosed Date [...] IM/IV Chest Xray Additional Comments: Followed by shingle carrier - Dr. Rashel Sales [facility] Complicated UTI (urinary tract infection) 12/20/2021 [...] Overview: Per CKD protocol #1 [employer] Other*[id number] 06/02/2010 04/18/2011 Overview: PROJECT: #[id number], SPONSOR: [employer], PI: Adolfo De Jesus MD [...] can be closed. CONTACT: Roberto Carlos Huertas, Terminal Make Up Operator Type 2 diabetes mellitus wit h hemoglobin A1c goal of less than 7.0% 04/24/2010 08/29/2018 Overview: ICD-10 update of inactive term ACTIVE CASE MANAGEMENT Kassie Anthony, RN [id number] 05/10/19 10 12/05/2009 ADVANCE DIRECTIVE INFORMATION 05/09/2009 [...] as of this encounter (statuses as of 06/24/2023) Immunizations Name Administration Dates Next Due COVID-19 [...] Sign Reading Time Taken Comments Blood Pressure 121/71 06/24/2023 11:17 AM EDT Pulse 83 06/24/2023 11:17 AM EDT Temperature 36.4 C (97.6 F) 06/24/2023 11:17 AM E DT Respiratory Rate - - Oxygen Saturation 94% 06/24/2023 11:17 AM EDT Inhaled Oxygen Concentration - - Weight 63.5 kg (140 lb 1.6 oz) 06/24/2023 11:17 AM EDT Height - - Body Mass Index 31.41 06/04/2023 1:41 PM EDT documented in this [...] as of this encounter Progress Notes * Bouchra Del Cid CRNP - 06/24/2023 11:00 AM EDT Hematology/Oncology Outpatient Clinic note [facility] [address] [place] [address] Name: Abdi Bowling Date: 06/24/2023 CHIEF COMPLAINT: Abdi Bowling is a 67 year old female patient of Dr. Jules Champ here today for f/u visit today. From Patient chart confirmed with patient. HEMATOLOGY/ONCOLOGY DIAGNOSIS: Iron deficiency anemia TREATMENT HISTORY: IV Venofer 300 mg x 1 dose received 10/01/22 -was to receive second dose but two days after infusion her vision became bright yellow and she passed out for a few seconds. Canceled second infusion. IV Venofer 300 mg x 2 doses 14 days apart completed 02/05/23 CURRENT TREATMENT: Observation HISTORY OF PRESENT ILLNESS: Component Latest Ref Rng 12/20/2021 03/19/2022 03/28/2022 08/22/2022 WBC 4.00 - 10.80 K/uL 5.49 6.60 6.95 5.16 RBC 3.85 - 5.15 M/uL 4.40 3.40 3.77 4.10 HGB 12.0 - 15.3 g/dL 11.1 (L) 8.7 (L) 9.6 (L) 11.2 (L) HGB 10.7 (L) HCT 36.0 - 45.2 % 36.3 30.7 (L) 32.9 (L) 35.4 (L) MCV 81.5 - 97.5 fL 82.5 90.3 87.3 86.3 MCH 27.0 - 34.0 pg 25.2 25.6 25.5 27.3 MCHC 32.0 - 36.0 g/dL 30.6 28.3 29.2 31.6 RDW 11.5 - 15.5 % 18.1 16.9 16.2 16.9 PLT 140 - 400 K/uL 171 273 221 137 (L) MPV 6.6 - 11.1 fL 11.0 10.7 11.3 11.1 Patient with PMH of CHF, atrial fibrillation, CAD, DM type II, DLD, OA, HTN, CKD stage III, hypothyroidism, RLS, s/p mechanical mitral valve replacement and TIA. Currently taking ferrous sulfate 1 tablet daily slow release. Tolerating that well. Denies any adverse GI side effects. Patient with hospitalization on February 23, 2022 with acute tracheobronchitis after a cruise. Was hospitalized at [facility]. INR was noted to be 9 at that time. Also with prior hospitalization on December 13, 2021 undergoing surgical left tibial tubercle and patellar tendon repair. Also has a history of muscular hematoma of LLE in July 2021. Was hospitalized for one month for this. Is able to ambulate with walker short distances. Uses wheelchair for longer distances. Still experiencing some pain in LLE but much improved from where she was. Clinically patient is currently at baseline. Denies any melena or hematochezia. GI ROS negative. Isvery eager to receive an IV iron infusion d/t reports from her pointing machine operator, Dr. Hadley Molina, that latest literature has shown that oral iron has not been helpful in the setting of heart failure while there have been positive results with IV Venofer if there has been iron deficiency anemia and LV dysfunction. Patient is a nonsmoker. Does drink approximately one glass of wine per day. HISTORY OF PRESENT ILLNESS: Abdi Bowling is a 67 year old female with a history as outlined above. Currently here for f/u visit today. Patient still having trouble with her fluid balance and lower extremity edema. Continueson torsemide with matozalone every seven days. Also now on Jardiance. Following with cardiology closely. Pain also better controlled on pain patch as well. Past Medical History: Diagnosis Date Acute on chronic diastolic CHF (congestive heart failure) (HCC) 07/18/2021 [facility] Anticoagulation management encounter 08/06/2001 INR 3-3.5 Anxiety attack 06/23/[address] [facility] ER Atrial fibrillation (HCC) Bronchitis 02/18/2022 got sick on 9 days En cruise Coronary atherosclerosis of ak chin coronary artery Cough variant asthma 01/16/2021 COVID-19 10/14/2020 Cystitis 12/12/2021 [place] Klebsiella and E coli Diverticulosis of colon (without mention of hemorrhage) 07/16/2013 sigmoid & descending colon DM type 2, goal A1c below 7 diet controlled Dyslipidemia, goal LDL below 70 09/24/2013 Encounter for hepatitis C screening test for low risk patient 03/28/2021 negative Esophageal reflux 12/03/2008 min gastric inflammation and mod active chronic esophageal inflammation-repeat EGD in 2 yrs Facial paresthesia 05/21/2018 [facility] possibly stress Fracture of left tibial tuberosity 12/07/2021 [place] knee replaced GENERAL OSTEOARTHROSIS 01/31/2010 Generalized anxiety disorder 06/26/2021 citalopram started Hemarthrosis involving knee joint Hematoma of left lower leg 11/25/2021 [facility] ER ulstrasound shows hematoma calf, INR 4.2, hgb 9.9 Hyperlipidemia LDL goal < 100 12/23/2013 Hypertensive heart and kidney disease with chronic diastolic congestive heart failure and stage 3b chronic kidney disease (HCC) 04/26/2021 Hypothyroidism, postablative 09/24/2013 Intramuscular hematoma 08/02/2021 left leg, [facility] Kidney disease, chronic, stage III (GFR 30-59 ml/min) ([facility]) 07/09/2011 Per CKD protocol #1 LONG-TERM USE OF ANTICOAGULANTS 05/10/2004 MEDICATION USE AGREEMENT 08/29/2017 Migraine with aura, intractable Old myocardial infarct 01/02/2001 Other abnormal glucose 03/13/2005 Postural dizziness with presyncope 12/05/2017 [facility] also burned her arm. GFR 17 Protein calorie malnutrition ([facility]) Restless legs syndrome 12/06/2016 RHEUMATIC HEART DISEASE 03/05/2002 Right knee DJD S/P mitral valve replacement 1994 mechanical Shingles 02/13/2014 left thigh Syncope 01/13/2021 [facility] VICKY and dehydration Tachy-sammi syndrome (HCC) 02/14/2018 Tendonitis, Achilles, left 02/18/2022 walked a lot on a cruise TIA (transient ischemic attack) 12/23/2013 embolic Past Surgical History: Procedure Laterality Date ARTHROPLASTY KNEE TOTAL Left 09/23/2018 [facility] had post op hemarthrosis required transfusions Dr Cormier ARTHROPLASTY KNEE TOTAL Right 01/13/2019 [facility] CATHETERIZE LEFT HEART THRU SKIN [address] ANGIOGRAPHY HEAD W/CONTRAST/NONCONTRAST N/A 01/13/2021 arteries patent COLONOSCOPY N/A 02/24/2020 internal nemorrhoids, sigmoid diverticulosis, repeat 10 years COLONOSCOPY, DIAGNOSTIC (RECTUM) 07/16/2013 diverticulosis, poor prep, repeat 3 yrs/COLONOSCOPY FLEXIBLE PROXIMAL DIAGNOSTIC performed by Louie Childress MD at ENDOSCOPY [facility] COLONOSCOPY, DIAGNOSTIC (RECTUM) 02/24/2020 diverticulosis, repeat 10 yrs / COLONOSCOPY FLEXIBLE PROXIMAL DIAGNOSTIC performed by Louie Childress MD at ENDOSCOPY [facility] CT HEAD/BRAIN WO CONTRAST N/A 01/13/2021 no intracranial abnormalities, parietal scalp effusion from fall DISTAL TIBIA FX W/FIXATION OF TIBIA, OPEN Left 12/13/2021 OPEN TREATMENT OF PILON FRACTURE TIBIA ONLY performed by Moris Jimenez DO at OR [facility] DISTAL TIBIA FX W/FIXATION OF TIBIA, OPEN Left 12/11/2021 OPEN TREATMENT OF PILON FRACTURE TIBIA ONLY performed by Moris Jimenez DO at OR [facility] EEG 05/20/2018 normal EGD, FLEXIBLE, DIAGNOSTIC N/A 02/24/2020 hiatal hernia, normal esophagus and duodenum, inflammation gastric antrum EGD, FLEXIBLE, DIAGNOSTIC 02/24/2020 gastritis, hiatal hernia / ESOPHAGOGASTRODUODENOSCOPY (EGD), FLEXIBLE, TRANSORAL, DIAGNOSTIC performed by Louie Childress MD at ENDOSCOPY [facility] EGD, FLEXIBLE, DIAGNOSTIC 07/24/2021 normal / INPT [facility] EGD, FLEXIBLE, INSERT WIRE, PASS DILATOR 09/13/2009 repeat PRN EGD, FLEXIBLE, W/BIOPSY 12/03/2008 min gastric inflammation and mod active chronic esophageal inflammation-repeat EGD in 2 yrs ELECTRICAL CARDIOVERSION 1985 cardioversion IR TOMOSYNTHESIS, MAMMO SCREEN Bilateral 11/09/2016 heterogeneously dense, presumed cyst left, BI RAD 2 LIGATE/CUT OVIDUCT(S) 1980 Tubal Ligation MAMMOGRAM SCREENING BILATERAL Bilateral 09/30/2014 BIRAD 1 normal MAMMOGRAM SCREENING BILATERAL Bilateral 10/21/2015 heterogeneously dense, LUOQ mass stable since 2013, BI-RAD 2 MAMMOGRAM SCREENING BILATERAL Bilateral 11/27/2017 left cyst, dense breasts, BI RAD 1 MAMMOGRAM SCREENING BILATERAL Bilateral 06/29/2020 heterogeneously dense, BIRAD 2 repeat 1 year MISCELLANEOUS ORDER 1981 thyroid MISCELLANEOUS ORDER 1982 ganglion cyst on wrist MISCELLANEOUS ORDER 1987 endoscopy MOBILE DXA 11/14/2021 Lumbar T -0.7, Femur T -2, fx risk 10%/1.8%, moderate repeat 2 years REMOVAL OF APPENDIX 1965 REMOVE GALLBLADDER 1987 REPLACE MITRAL VALVE W/BYPASS 1993 Mitral Valve Replacement - mechanical Roe-Medtronic prosthesis TOTAL ABD HYSTERECTOMY W/WO REMOVAL OF TUBE(S) 1984 Hysterectomy Partial - endometriosis VASC DUPLEX VENOUS LE BILAT Bilateral 12/05/2022 No DVT VASC DUPLEX VENOUS LE UNILAT Right 01/27/2019 collection of blood behind right knee, no DVT VASC DUPLEX VENOUS LE UNILAT Left 02/27/2021 no DVT Social History Socioeconomic History Marital status: Single Spouse name: Not on file Number of children: 0 Years of education: Not on file Highest education level: Not on file Occupational History 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 Tobacco Use Smoking status: Never Smokeless tobacco: Never Tobacco comments: No passive smoke exposures Vaping Use Vaping Use: Never used Substance and Sexual Activity Alcohol use: Yes Alcohol/week: 7.0 standard drinks of alcohol Types: 7 5 oz of wine per week Comment: wine daily Drug use: No Sexual activity: Yes Partners: Male Other Topics Concern Service Not Asked Blood Transfusions No Comment: autologus Caffeine Concern Not Asked Occupational Exposure Not Asked Hobby Hazards Not Asked Sleep Concern Not Asked Stress Concern Not Asked Weight Concern Not Asked Special Diet Not Asked Back Care Not Asked Exercise Not Asked Bike Helmet Not Asked Seat Belt Not Asked Self-Exams Not Asked Social History Narrative Single, newly dating Social Determinants of Health Financial Resource Strain: Not on file Food Insecurity: No Food Insecurity (05/24/2023) Hunger Vital Sign Worried About Running Out of Food in the Last Year: Never true Ran Out of Food in the Last Year: Never true Transportation Needs: Not on file Physical Activity: Not on file Stress: Not on file Social Connections: Not on file Intimate Partner Violence: Not on file Housing Stability: Not on file Review of patient's allergies indicates: Allergen Reactions [...] AND BEFORE BEDTIME 200 Tablet 1 Nystatin [id number] UNIT/ML Mouth/Throat Suspension Swish and swallow 5 mL in the morning and 5 mL at noon and 5 mL in the evening and 5 mL before bedtime. For thrush.. 240 mL 1 Warfarin Sodium 2.5 MG Oral Tablet (Coumadin) Take 1 and 1/2 to 2 tablets by mouth daily as directed by [facility] 180 Tablet 3 Nitroglycerin 0.4 MG Sublingual Tablet Sublingual (Nitrostat) PLACE 1 TABLET UNDER THE TONGUE EVERY5 MINUTES UP TO 3 DOSES NEEDED FOR CHEST PAIN. IF NO RELIEF CALL 911 OR GO TO ER (Patient not taking: Reported on 06/21/2023) 75 Tablet 0 traMADol HCl 50 MG Oral Tablet (Ultram) [...] prior to torsemide in the morning on directed 12 Tablet 5 No current facility-administered medications for this visit. REVIEW OF SYSTEMS: See HPI - otherwise negative OBJECTIVE: Filed Vitals: 06/24/23 1117 BP: 121/71 Pulse: 83 Temp: 36.4 C (97.6 F) TempSrc: Tympanic SpO2: 94% Weight: 63.5 kg (140 lb 1.6 oz) Wt Readings from Last 5 Encounters: 06/24/23 63.5 kg (140 lb 1.6 oz) 06/21/23 64 kg (141 lb) 06/20/23 64 kg (141 lb 3.2 oz) 06/04/23 66.1 kg (145 lb 11.2 oz) 05/14/23 64.2 kg (141 lb 9.6 oz) PHYSICAL EXAM: General Appearance: No acute distress Lungs/Thorax: Normal respiratory effort Extremities: +1 LLE edema Neurologic: alert and oriented x 4, ambulating with walker today LABS: Results for orders placed or performed in visit on 06/19/23 IRON SCREEN, INCLUDING TIBC Result Value Ref Range Iron 50 33 - 151 ug/dL Iron Binding Capacity 340 250 - 425 ug/dL Transferrin Saturation Percent 15 15 - 55 % FERRITIN Result Value Ref Range Ferritin 322 (H) 13 - 150 ng/mL PT INR Result Value Ref Range Prothrombin Time 39.5 (H) 11.6 - 15.2 seconds INR 4.0 (H) 0.8 - 1.2 CBC Result Value Ref Range WBC 6.33 4.00 - 10.80 K/uL RBC 4.27 3.85 - 5.15 M/uL HGB 12.2 12.0 - 15.3 g/dL HCT 37.6 36.0 - 45.2 % MCV 88.1 81.5 - 97.5 fL MCH 28.6 27.0 - 34.0 pg MCHC 32.4 32.0 - 36.0 g/dL RDW 15.0 11.5 - 15.5 % PLT 137 (L) 140 - 400 K/uL MPV 11.3 6.6 - 11.1 fL DIFFERENTIAL, AUTOMATED Result Value Ref Range WBC 6.33 4.00 - 10.80 K/uL Neutrophils % 71.0 40.0 - 75.0 % Lymphocytes % 14.8 (L) 18.0 - 42.0 % Monocytes % 9.6 1.0 - 11.0 % Eosinophils % 4.3 0.0 - 6.0 % Basophils % 0.3 0.0 - 2.0 % Absolute Neutrophils 4.49 1.80 - 7.70 K/uL Absolute Lymphocytes 0.94 (L) 1.00 - 4.80 K/ul Absolute Monocytes 0.61 0.00 - 1.10 K/uL Absolute Eosinophils 0.27 0.00 - 0.70 K/uL Absolute Basophils 0.02 0.00 - 0.20 K/uL *Note: Due to a large number of results and/or encounters for the requested time period, some results have not been displayed. A complete set of results can be found in Results Review. IMPRESSION/PLAN: Iron deficiency anemia RLS Cause of normocytic anemia in this patient's case likely multifactorial including anemia of chronicdisease, renal insufficiency and possibly iron deficiency. Lab results reviewed with patient: Hgb normal at 12.2 Ferritin 322 and TSAT 15% With RLS and CKD reasonable for goal ferritin to be between 100-200. No further iron therapy indicated at this time. Will continue to monitor cbc/diff, iron screen and ferritin every three months through [facility]. RTC in 6 months with provider with cbc/diff, cmp, iron screen and ferritin SOFI Gonzáles documented in this encounter Nursing Notes * Brianna Marcus, MED ASSIST - 06/24/2023 11:18 AM EDT Patient identifed by name and birthdate Do you have any concerns about pain management for today's visit? Yes. Patient instructed to discuss pain concerns with provider during the visit today Living Will or Advance Directive for Health Care as noted on the problem list. [facility] is a way you can talk to your provider on line through e-mail. Would you like to sign up? I can activate it for you? ALREADY ACTIVE Filed Vitals: 06/24/23 1117 BP: 121/71 Pulse: 83 Temp: 36.4 C (97.6 F) TempSrc: Tympanic SpO2: 94% Weight: 63.5 kg (140 lb 1.6 oz) Patient was instructed to not get up on the exam table/exam chair until directed and assisted by their provider; patient is to remain seated in the chair/ wheelchair/ exam table/ exam chair for fall prevention and safety reasons. Patient is aware to have assistance to step down off exam table/exam chair with personnel. Patient voiced full comprehension of instructions. documented in this encounter Plan of Treatment Upcoming Encounters Date Type Department Care Team (Late st Contact Info) Description 06/26/2023 7:05 AM EDT Laboratory Lab Mobile Phlebotomy [facility] [address] [place] [address] [facility] Mobile Home Draw [address] [facility] [place] [address] 06/26/2023 6:00 PM EDT Anticoagulation Pharmacy Call Center WB [address] [facility] [place] [address] [facility] 58 [address] [facility] [place] [address] 07/04/2023 2:40 PM EDT Office Visit Nephrology [address] [place] [address] Aliyah Lacey MD [address] [facility] [place] [address] 07/08/2023 8:30 AM EDT Home Visit [facility] [place], [address] [place] [address] Valentina Laws RN [address] [place] [address] 08/05/2023 1:00 PM EDT Nurse Only Ancillary [address] [place] [address] [place], Nurse [address] [place] [address] 09/20/2023 8:00 AM EDT Laboratory Lab Mobile Phlebotomy [facility] [address] [place] [address] [facility], [facility] Mobile Home Draw [address] [place] [address] 09/24/2023 11:30 AM EDT Office Visit Nephrology, [facility] [address] [facility] [place] [address] Kary Pena PA-C [address] [facility] [place] [address] 10/22/2023 11:00 AM EDT Office Visit Cardiology, [facility] [place] [address] Hadley Molina MD 132 [facility] [place] [address] 12/20/2023 8:00 AM EDT Laboratory Lab Mobile Phlebotomy [facility] [address] [place] [facility] [place] [address] [facility], [facility] Mobile Home Draw [address] [place] [address] 12/26/2023 2:00 PM EST Office Visit Hematology/Oncology [facility] [place] [address] [place] [phone] Bouchra Del Cid CRNP [address] [place], [place] [address] [address] 01/17/2024 8:00 AM EST Office Visit [address] [place] [address] Shara Ray MD [address] [place] [address] [place] [address] 03/27/2024 8:00 AM EST Laboratory Lab Mobile Phlebotomy [facility] [address] [place] [address] [facility], [facility] Mobile Home Draw [address] [place] [address] 06/09/2024 1:30 PM EDT Office Visit Allergy/Immunology [facility] [place] [address] [place] [address] Rae Ramirez PA-C [address] [place] [address] 06/24/2024 1:40 PM EDT Office Visit [address] [place] [phone] Shara Ray MD [address] [place] [address] [place] [address] Scheduled Orders Name Type Priority Associated Diagnoses Orde r Schedule CBC WITH WBC DIFFERENTIAL Lab STAT Iron deficiency anemia, unspecified iron deficiency anemia type Restless leg syndrome Every 3 Months for 4 Occurrences starting 06/24/2023 until 07/24/2024 COMPREHENSIVE METABOLIC PANEL Lab STAT Iron deficiency anemia, unspecified iron deficiency anemia type Restless leg syndrome Every 3 Months for 4 Occurrences starting 06/24/2023 until 07/24/2024 IRON SCREEN, INCLUDING TIBC Lab STAT Iron deficiency anemia, unspecified iron deficiency anemia type Restless leg syndrome Every 3 Months for 4 Occurrences starting 06/24/2023 until 07/24/2024 FERRITIN Lab STAT Iron deficiency anemia, unspecified iron deficiency anemia type Restless leg syndrome Every 3 Months for 4 Occurrences starting 06/24/2023 until 07/24/2024 Scheduled Procedures Name Priority Associated Diagnoses Date/Ti [...] Additional history exists CKD PHOS USE SMARTSET 11953 03/21/2024 020 02/2023, 12/19/2022, 11/28/2022, Additional history exists Albumin/Creatinine Ratio 05/06/2024 024, 12/03/2022, 02/05/2022, Additional history exists TSH 06/06/2024 06/07/2023, 05/19, 06/28/2021, Additional history exists CKD HGB USE SMARTSET 33622 06/18/202406/18, 06/19/2023, 05/07/2023, Additional history exists DTaP,Tdap,and [...] this encounter Medical Devices Implanted Type Area Assurance Manager Device Identifier Shelf Expiration Date Model / Serial / Lot [place] S[employer]ocomposite - Sn/A - [id number] Implanted:Qty: 2 on 12/13/2021 by Moris Jimenez, DO at OR [facility] Left: Leg Lower [employer] 07/18/2024 [id number] / N/A / [id number] [employer] Bbtrauma Foam Pack - [id number] - [id number] Implanted:Qty: 1 on 12/13/2021 by Moris Jimenez DO at OR [facility] Left: Leg Lower MICHA : TRAUMA 01/15/2022 / [id number] / [id number] documented as of this encounter Visit Diagnoses Diagnosis Iron deficiency anemia, unspecified iron deficiency anemia type- Primary Restless leg syndrome Restless legs syndrome (RLS) documented in this encounter Advance Directives Latest Code Status on File Code Status Date Activated Date Inactivated Comments Full Code 12/12/2021 7:18 PM 12/20/2021 6:08 PM This order reflects the patients wishes and were consensually agreed upon. Question Answer Comments Discussion of Advance Directives occurred with: Patient Care Teams Typewriter Mechanic Relationship Specialty Start Date End Date Shara Ray MD [address] [place] [address] [place] [id number] PCP - General Family Medicine 03/08/23 documented as of this encounter
--- OUTSIDE RECORDS SUMMARY | 2023-07-10 16:38 | External Medical Summary | Summary of Care ---
Author Name Unknown Organization [facility] Address [address] [address] Phone [phone] Care Team Providers Care Statement Clerk Name Role Phone Shara Ray MD Primary Care Provide r Reason for Visit * Reason Comments Re-Check Encounter Details Date Type Department Care Team (Late st Contact Info) Description 06/20/2023 1:40 PM EDT Office Visit Family Medicine [address] [place] [phone] Shara Ray MD [address] [place] [address] [place] [address] Chronic heart failure with preserved ejection fraction (HCC)*; Major depressive disorder, recurrent, moderate (HCC); Nocturnal hypoxia; Restrictive lung disease; Type 2 diabetes mellitus with stage 3b chronic kidney disease, without long-term current use of insulin (HCC); Other chronic pain; Generalized anxiety disorder; Hypothyroidism, postablative; Dyslipidemia, goal LDL below 100; Tachy-sammi syndrome (HCC); Old myocardial infarct Allergies Active Allergy Reactions Criticality Noted Date [...] as of this encounter (statuses as of 06/20/2023) Medications Medication Sig Dispensed Refills Start Date End Date Status acetaminophen (TYLENOL) 500 MG Tablet Take 1 Tablet by mouth every 6 hours as needed for Pain. 0 Active milk of magnesia (MOM) 400 MG/5ML suspension Take by mouth daily as needed for Constipation. 0 Active Benzonatate 100 MG Oral Capsule (Tessalon Perles)Indications :Cough Take by mouth 1 Capsule as needed in the morning AND 1 Capsule as needed at noon AND 1 Capsule as needed in the evening for Cough. 30 Capsule 1 2 Active D3-1000 25 MCG (1000 UT) Oral Capsule (Cholecalciferol) Take 1 Capsule by mouth in the morning. 0 Active Magnesium Glycinate 665 MG Oral CapsuleIndications :Restless legs syndrome One daily 100 Capsule 1 2 Active Omeprazole 20 MG Oral Capsule Delayed Release (PriLOSEC)Indicati ons:Encounter for long-term (current) use of medications,Gastro esophageal reflux disease with esophagitis Take 1 Capsule by mouth in the morning. 100 Capsule 1 3 Active Estrogens Conjugated 0.625 MG/GM Vaginal Cream (Premarin)Indicati ons:Postmenopausal atrophic vaginitis ADMINISTER INTO THE VAGINA AT BEDTIME DIRECTED 90 g 2 3 024 Active Albuterol Sulfate HFA 108 (90 Base) MCG/ACT Inhalation Aerosol Solution INHALE TWO PUFFS BY MOUTH EVERY MORNING - TWO PUFFS EVERY EVENING - AND EVERY 4 HOURS NEEDED FOR WORSENING COUGH, CHEST TIGHTNESS, FOR WHEEZING OR FOR SHORTNESS OF BREATH 54 g 2 3 024 Active Folic Acid 1 MG Oral TabletIndications: Mild protein-calorie malnutrition (HCC) TAKE ONE TABLET BY MOUTH EVERY MORNING 100 Tablet 1 3 024 Active rOPINIRole HCl 2 MG Oral Tablet (Requip)Indication s:Restless legs syndrome Take 1 Tablet by mouth [...] AND BEFORE BEDTIME 200 Tablet 1 3 024 Active Nystatin 036561 UNIT/ML Mouth/Throat SuspensionIndicati ons:Thrush Swish and swallow 5 mL in the [...] Active Nitroglycerin 0.4 MG Sublingual Tablet Sublingual (Nitrostat)Indicat ions:Old myocardial infarct,Atrial fibrillation (HCC),HTN, goal to be determined PLACE 1 TABLET UNDER THE TONGUE EVERY 5 MINUTES UP TO 3 DOSES NEEDED FOR CHEST PAIN. IF NO RELIEF CALL 911 OR GO TO ER 75 Tablet 0 4 Active traMADol HCl 50 MG Oral Tablet (Ultram)Indication s:Generalized osteoarthritis,Pos t-traumatic osteoarthritis of right knee,Closed nondisplaced fracture of left tibial tuberosity with routine healing Take 1 Tablet by mouth 2 times a day as needed for Pain, Severe. 60 Tablet 0 4 Active Combivent Respimat 20-100 MCG/ACT Inhalation Aerosol Solution (Ipratropium-Albut keila) inhale 1 puff four times daily As Needed for Shortness Of Breath 12 g 1 4 Active Ipratropium-Albute rol 0.5-2.5 (3) MG/3ML Inhalation Solution (Duoneb) inhale 1 vial (3 mL) via nebulizer four times daily As Needed for shortness of breath or wheezing 1080 mL 2 4 Active Citalopram Hydrobromide 10 MG Oral Tablet (CeleXA)Indication s:BOBBY (generalized anxiety disorder) TAKE ONE TABLET BY MOUTH EVERY MORNING 100 Tablet 1 4 025 Active Levothyroxine Sodium 100 MCG Oral Tablet (Levoxyl)Indicatio ns:Hypothyroidism, postablative TAKE ONE TABLET by MOUTH DAILY FIRST THING IN THE MORNING AT LEAST 30 MINUTES PRIOR TO BREAKFAST OR OTHER MEDS 100 Tablet 1 4 025 Active metOLazone 5 MG Oral Tablet (Zaroxolyn) Take one 1/2 hour prior to torsemide in the morning on days directed 12 Tablet 5 4 Active Torsemide 100 MG Oral Tablet (Demadex)Indicatio ns:Acute on chronic right-sided heart failure (HCC),S/P mitral valve replacement,Perman ent atrial fibrillation (HCC) Take 0.5 Tablets by mouth in the morning. 45 Tablet 3 4 Active Rosuvastatin Calcium 10 MG Oral Tablet (Crestor) Take 1 Tablet by mouth in the morning. 100 Tablet 1 4 Active Metoclopramide HCl 10 MG Oral Tablet (Reglan)Indication s:Nausea TAKE ONE TABLET BY MOUTH EVERY MORNING 30 MINUTES BEFORE A MEAL 90 Tablet 1 4 025 Active Azelastine HCl 0.1 % Nasal Solution (Astelin) ADMINISTER INTO NOSTRIL TWO SPRAYS IN THE MORNING AND TWO SPRAYS BEFORE BEDTIME 30 mL 2 4 025 Active Buprenorphine 5 MCG/HR Transdermal Patch Weekly (Butrans) Apply 1 patch to skin once a week as directed 0 4 Active Nebulizer/Tubing/M outhpiece Kit Use as directed 1 Kit 1 4 Active oxygen IN GAS Use 2 L/min(Oxygen) as directed at bedtime. Ordered by pulmonary in Mar 2023. 0 Active valACYclovir HCl 1 GM Oral Tablet (Valtrex)Indicatio ns:Cold sore Take 2 Tablets by mouth in the morning and 2 Tablets before bedtime. for cold sores. 4 Tablet 11 4 Active Spironolactone 25 MG Oral Tablet (Aldactone)Indicat ions:Chronic heart failure with preserved ejection fraction (HCC) Take one-half Tablet by mouth in the morning. 45 Tablet 1 4 Active Ipratropium-Albute rol 0.5-2.5 (3) MG/3ML Inhalation Solution (Duoneb) Inhale 3 mL by mouth every 6 hours as needed. 0 024 Discontinued Spironolactone 25 MG Oral Tablet (Aldactone) TAKE ONE-HALF TABLET BY MOUTH IN THE MORNING 50 Tablet 1 4 024 Discontinued(Re fill) documented as of this encounter (statuses as of 06/20/2023) Active Problems Problem Noted Date Diagnosed Date Major depressive disorder, recurrent, moderate 0 04/03/2023 Last Assessment & Plan: Mood stable on current dose celexa Other persistent atrial fibrillation 04/03/2023 Last Assessment & Plan: Rate controlled Continue coumadin Atherosclerosis of saxman co ronary artery without angina pectoris 04/03/2023 [...] & Plan: Chronic AC coumadin Atherosclerosis of saxman co ronary artery of saxman heart without angina pectoris documented as of this encounter (statuses as of 06/20/2023) Resolved Problems Problem Noted Date Diagnosed Date [...] Chest Xray Additional Comments: Followed by certified medical biller - Dr. Rashel Sales [facility] [...] Overview: Per CKD protocol #1 [employer] Other*[id number] 06/02/2010 04/18/2011 Overview: PROJECT: #[id number], SPONSOR: Aileen, PI: Adolfo De Jesus MD [...] can be closed. CONTACT: Roberto Carlos Huertas, Paint Mixer Machine Type 2 diabetes mellitus wit h hemoglobin [...] MIGRAINE, SO STATED 04/26/2021 Atrial fibrillation 05/29/19 Right knee DJD 01/27/2019 Hemarthrosis involving knee joint 09/03/2013 Protein calorie malnutrition 03/03/2019 Type 2 diabetes mellitus wit h hemoglobin A1c goal of less than 7.0% 04/26/2021 documented as of this encounter (statuses as of 06/20/2023) Immunizations Name Administration Dates Next Due COVID-19 mRNA, LNP-s, No Pre serve, 2-Dose Series (Moderna) 04/19/2020,03/22/2020 COVID-19, MRNA-LNP, 23-24, P F, 30 MCG/0.3 mL, 12 YRS AND ABOVE, IM ([employer]) 12/03/2022 COVID-19, mRNA, LNP-s, PF, B ooster, [...] Sign Reading Time Taken Comments Blood Pressure 122/56 06/20/2023 1:42 PM EDT Pulse 65 06/20/2023 1:42 PM EDT Temperature 36.6 C (97.8 F) 06/20/2023 1:42 PM ED T Respiratory Rate - - Oxygen Saturation 95% 06/20/2023 1:42 PM EDT Inhaled Oxygen Concentration - - Weight 64 kg (141 lb 3.2 oz) 06/20/2023 1:42 PM EDT Height - - Body Mass Index 31.66 06/04/2023 1:41 PM EDT documented in this [...] as of this encounter Progress Notes * Shara Ray MD - 06/20/2023 1:42 PM EDT Subjective: HPI: Abdi Bowling is a 67 year old female with hx of DMII, CKD III, MVR, Afib on coumadin, tachy sammi syndrome, TIA, PR, HLD, HFpEF, Chronic anemia, HLD, Restrictive lung disease, Nocturnal hypoxia (2L), chronic pain(b/l knee replacement), Depression, Hypothyroidism, RLS seen for Pt is here with her nail setter (Moris- Cousin) HFpEF: - currently on Torsemide 50mg daily, aldactone 12.5mg daily, Metolazone 2.5mg every 10 days -- per pt she is doing well (per pt she loses weight with metolazone) DMII: - diet controlled - did not tolerate metformin - never tried jardiance in the past Chronic pain: - taking Tramadol 50mg TID, Butrans patch every week - goes to pain clinic - [facility] Pt has a oxygen concentrator but would like a portable one - pt would like order for nebs machine: would like script for Full Kit Neb set with mouthpiece, Teeadaptor, reservoir, 7' supple tube and neb Mask - pt would like a portable concentrator Patient Active Problem List Diagnosis Code Rheumatic heart disease I09.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 Z79.01 S/P mitral valve replacement Z95.2 Gastroesophageal reflux disease with esophagitis without hemorrhage K21.00 Generalized osteoarthritis M15.9 Hypothyroidism, postablative E89.0 Atherosclerosis of saxman coronary artery of saxman heart without angina pectoris I25.10 Dyslipidemia, goal [...] persistent atrial fibrillation (HCC) I48.19 Atherosclerosis of saxman coronary artery without angina pectoris I25.10 Current Outpatient Medications Medication Sig Dispense Refill [...] AND BEFORE BEDTIME 200 Tablet 1 Nystatin 681775 UNIT/ML Mouth/Throat Suspension Swish and swallow 5 mL in the morning and 5 mL at noon and 5 mL in the evening and 5 mL before bedtime. For thrush.. 240 mL 1 Warfarin Sodium 2.5 MG Oral Tablet (Coumadin) Take 1 and 1/2 to 2 tablets by mouth daily as directed by [facility] 180 Tablet 3 Nitroglycerin 0.4 MG Sublingual Tablet Sublingual (Nitrostat) PLACE 1 TABLET UNDER THE TONGUE EVERY5 MINUTES UP TO 3 DOSES NEEDED FOR CHEST PAIN. IF NO RELIEF CALL 911 OR GO TO ER 75 Tablet 0 traMADol HCl 50 MG Oral Tablet (Ultram) Take 1 Tablet by mouth 2 times a day as needed for Pain, Severe. 60 Tablet 0 Combivent Respimat 20-100 MCG/ACT [...] BREAKFAST OR OTHER MEDS 100 Tablet 1 metOLazone 5 MG Oral Tablet (Zaroxolyn) Take one 1/2 hour prior to torsemide in the morning on daysdirected 12 Tablet 5 Torsemide 100 MG Oral Tablet (Demadex) Take [...] to skin once a week as directed oxygen IN GAS Use 2 L/min(Oxygen) as directed at bedtime. Ordered by pulmonary in Mar 2023. valACYclovir HCl 1 GM Oral Tablet (Valtrex) Take 2 Tablets by mouth in the morning and 2 Tablets before bedtime. for cold sores. 4 Tablet 11 Spironolactone 25 MG Oral Tablet (Aldactone) Take one-half Tablet by mouth in the morning. 45 Tablet 1 Nebulizer/Tubing/Mouthpiece Kit Use as directed 1 Kit 1 No current facility-administered medications for this visit. Past Medical History: Diagnosis Date Acute on chronic diastolic CHF (congestive heart failure) (HCC) 07/18/2021 [facility] Anticoagulation management encounter 08/06/2001 INR 3-3.5 Anxiety attack 06/23/2021 Evaluated [facility] ER Atrial fibrillation (HCC) Bronchitis 02/18/2022 got sick on 9 days En cruise Coronary atherosclerosis of saxman coronary artery Cough variant asthma 01/16/2021 COVID-19 10/14/2020 Cystitis 12/12/2021 [place] Klebsiella and E coli Diverticulosis of colon (without mention of hemorrhage) 07/16/2013 sigmoid & descending colon DM type 2, goal A1c below 7 diet controlled Dyslipidemia, goal LDL below 70 09/24/2013 Encounter for hepatitis C screening test for low risk patient 03/28/2021 negative Esophageal reflux 12/03/2008 min gastric inflammation and mod active chronic esophageal inflammation-repeat EGD in 2 yrs Facial paresthesia 05/21/2018 [facility] possibly stress Fracture of left tibial tuberosity 12/07/2021 [place] knee replaced GENERAL OSTEOARTHROSIS 01/31/2010 Generalized anxiety disorder 06/26/2021 citalopram started Hemarthrosis involving knee joint Hematoma of left lower leg 11/25/2021 [facility] ER ulstrasound shows hematoma calf, INR 4.2, hgb 9.9 Hyperlipidemia LDL goal < 100 12/23/2013 Hypertensive heart and kidney disease with chronic diastolic congestive heart failure and stage 3b chronic kidney disease (HCC) 04/26/2021 Hypothyroidism, postablative 09/24/2013 Intramuscular hematoma 08/02/2021 left leg, [facility] Kidney disease, chronic, stage III (GFR 30-59 ml/min) ([facility]) 07/09/2011 Per CKD protocol #1 LONG-TERM USE OF ANTICOAGULANTS 05/10/2004 MEDICATION USE AGREEMENT 08/29/2017 Migraine with aura, intractable Old myocardial infarct 01/02/2001 Other abnormal glucose 03/13/2005 Postural dizziness with presyncope 12/05/2017 [facility] also burned her arm. GFR 17 Protein calorie malnutrition ([facility]) Restless legs syndrome 12/06/2016 RHEUMATIC HEART DISEASE 03/05/2002 Right knee DJD S/P mitral valve replacement 1994 mechanical Shingles 02/13/2014 left thigh Syncope 01/13/2021 [facility] VICKY and dehydration Tachy-sammi syndrome (HCC) 02/14/2018 Tendonitis, Achilles, left 02/18/2022 walked a lot on a cruise TIA (transient ischemic attack) 12/23/2013 embolic Past Surgical History: Procedure Laterality Date ARTHROPLASTY KNEE TOTAL Left 09/23/2018 [facility] had post op hemarthrosis required transfusions Dr Cormier ARTHROPLASTY KNEE TOTAL Right 01/13/2019 [facility] CATHETERIZE LEFT HEART THRU SKIN [address] ANGIOGRAPHY HEAD W/CONTRAST/NONCONTRAST N/A 01/13/2021 arteries patent COLONOSCOPY N/A 02/24/2020 internal nemorrhoids, sigmoid diverticulosis, repeat 10 years COLONOSCOPY, DIAGNOSTIC (RECTUM) 07/16/2013 diverticulosis, poor prep, repeat 3 yrs/COLONOSCOPY FLEXIBLE PROXIMAL DIAGNOSTIC performed by Louie Childress MD at ENDOSCOPY [facility] COLONOSCOPY, DIAGNOSTIC (RECTUM) 02/24/2020 diverticulosis, repeat 10 yrs / COLONOSCOPY FLEXIBLE PROXIMAL DIAGNOSTIC performed by Louie Childress MD at ENDOSCOPY [facility] CT HEAD/BRAIN WO CONTRAST N/A 01/13/2021 no intracranial abnormalities, parietal scalp effusion from fall DISTAL TIBIA FX W/FIXATION OF TIBIA, OPEN Left 12/13/2021 OPEN TREATMENT OF PILON FRACTURE TIBIA ONLY performed by Moris Jimenez DO at OR [facility] DISTAL TIBIA FX W/FIXATION OF TIBIA, OPEN Left 12/11/2021 OPEN TREATMENT OF PILON FRACTURE TIBIA ONLY performed by Moris Jimenez DO at OR [facility] EEG 05/20/2018 normal EGD, FLEXIBLE, DIAGNOSTIC N/A 02/24/2020 hiatal hernia, normal esophagus and duodenum, inflammation gastric antrum EGD, FLEXIBLE, DIAGNOSTIC 02/24/2020 gastritis, hiatal hernia / ESOPHAGOGASTRODUODENOSCOPY (EGD), FLEXIBLE, TRANSORAL, DIAGNOSTIC performed by Louie Childress MD at ENDOSCOPY [facility] EGD, FLEXIBLE, DIAGNOSTIC 07/24/2021 normal / INPT [facility] EGD, FLEXIBLE, INSERT WIRE, PASS DILATOR 09/13/2009 repeat PRN EGD, FLEXIBLE, W/BIOPSY 12/03/2008 min gastric inflammation and mod active chronic esophageal inflammation-repeat EGD in 2 yrs ELECTRICAL CARDIOVERSION 1985 cardioversion IR TOMOSYNTHESIS, MAMMO SCREEN Bilateral 11/09/2016 heterogeneously dense, presumed cyst left, BI RAD 2 LIGATE/CUT OVIDUCT(S) 1979 Tubal Ligation MAMMOGRAM SCREENING BILATERAL Bilateral 09/30/2014 [...] VENOUS LE UNILAT Left 02/27/2021 no DVT Review of patient's allergies indicates: Allergen Reactions Budesonide Other (Please comment) trouble breathing Hydroxyzine Other reaction(s): DYSTONIA Metformin Other reaction(s): DIARRHEA Parsley Seed Other reaction(s): AGITATION Vincent Inhibitors cough Gabapentin Neuro complications (Please comment) confusion Lovenox [Enoxaparin] Oxycodone " numb all over" Phenothiazines Unknown Prochlorperazine Neuro complications (Please comment) dystonia Tetracycline Nausea/vomiting Family History Problem Relation Age of Onset Eczema Mother Other (COVID) Mother Multi system organ failure, age 90 Cancer Father Bladder Allergies Brother Cat and dog allergies Cancer Grandfather (Maternal) Leukemia Heart Disorder Uncle (Unspecified) Social History Tobacco Use Smoking status: Never Smokeless tobacco: Never Tobacco comments: No passive smoke exposures Substance Use Topics Alcohol use: Yes Alcohol/week: 7.0 standard drinks of alcohol Types: 7 5 oz of wine per week Comment: wine daily Vaping/E-Cigarette Use Vaping/E-Cigarette Use Never User Vaping/E-Cigarette Substances Vaping/E-Cigarette Devices ROS: -Per HPI OBJECTIVE: BP 122/56 | Pulse 65 | Temp 36.6 C (97.8 F) | Wt 64 kg (141 lb 3.2 oz) | SpO2 95% | BMI 31.66 kg/m | BSA 1.59 m PHYSICAL EXAM: Vitals are reviewed General:. NAD, well developed HEENT:. Normal Conjunctiva, EOMI Cardiac:.in afib Lungs:. CTA, no wheezing or crackles MSK:. Trace b/l LE pitting edema Psych:. AAOx3, normal affect ASSESSMENT/PLAN: Due to neb use -- pt would benefit from Full Kit Neb set with mouthpiece, Eduard adaptor, reservoir, 7' supple tube and neb Mask - and portable oxygen concentrator Chronic heart failure with preserved ejection fraction (HCC) (Primary) - Spironolactone 25 MG Oral Tablet (Aldactone); Take one-half Tablet by mouth in the morning. Major depressive disorder, recurrent, moderate (HCC) - celexa Nocturnal hypoxia - DURABLE MEDICAL EQUIPMENT - DURABLE MEDICAL EQUIPMENT Restrictive lung disease - DURABLE MEDICAL EQUIPMENT - DURABLE MEDICAL EQUIPMENT Type 2 diabetes mellitus with stage 3b chronic kidney disease, without long-term current use of insulin (HCC) - for now diet controlled - will consider jardiance in the future Other chronic pain - doing well on tramadol, and butrans Generalized anxiety disorder - celexa Hypothyroidism, postablative - on levothyroxine Dyslipidemia, goal LDL below 100 - crestor Tachy-sammi syndrome (HCC) - stable Old myocardial infarct - on statin Follow Up: Return in about 6 months (around 12/21/2023). I spent a total of 40-54 minutes (exact time 44 mins) on the date of service in preparation, delivery, and documentation of the care provided to Abdi Bowling excluding any time spent in the performance of separately billed services. Shara Ray MD Family medicine[address] [address] documented in this encounter Nursing Notes * Omayra Rosales, LADIES' LOCKER ROOM ATTENDANT - 06/20/2023 1:35 PM EDT She is here for a 6 mo recheck. She was a patient of Dr. Blanco and is here to establish with Dr. Gilliland. She needs some new respiratory supplies(tubing and a mask for the nebulizer) She uses [facility] once it goes to tomorrow [facility]. They want to discuss possibly switch her respiratoy doctory to a [facility] physican as well. She jeferson 2L of in house O2 during the day and at night. They want to see if they can get portable oxygen. He cousin and Caregiver, Moris is with her today. documented in this encounter Plan of Treatment Upcoming Encounters Date Type Department Care Team (Late st Contact Info) Description 06/21/2023 2:30 PM EDT Office Visit Cardiology, [facility] [address] [place] [address] Hadley Molina MD [address] [place] [address] 06/24/2023 10:30 AM EDT Scheduled Telephone [facility] [place], [facility] [address] [facility] [place] [address] Vee Santacruz, RDN [address] [facility] [place] [address] 06/24/2023 11:00 AM EDT Office Visit Hematology/Oncology [facility] [address] [facility] [place] [phone] Bouchra Del Cid CRNP [address] [place] [address] [place] [address] 06/26/2023 7:05 AM EDT Laboratory Lab Mobile Phlebotomy [facility] [address] [address] [address] [facility], [facility] Draw [address] [place] [address] [address] 06/26/2023 6:00 PM EDT Anticoagulation Pharmacy Call Center [address] [facility] [place] [address] [facility], [facility] [address] [place] [address] 07/04/2023 2:40 PM EDT Office Visit Nephrology [address] [place] [address] Aliyah Lacey MD [address] [place] [address] 07/08/2023 8:30 AM EDT [facility] Visit [facility], [facility] [address] [address] Valentina Laws, RN [address] [place] [address] 08/05/2023 1:00 PM EDT Nurse Only Ancillary [address] [place] [address] [place], Nurse [address] [place] [address] 09/20/2023 8:00 AM EDT Laboratory Lab Mobile Phlebotomy [facility] [address] [place] [address] [facility], [facility] Mobile Home Draw [address] [place] [address] 09/24/2023 11:30 AM EDT Office Visit NephrologyJudson [address] [facility] [place] [address] Kary Pena PA-C [address] [facility] [place] [address] 12/20/2023 8:00 AM EDT Laboratory Lab Mobile Phlebotomy [facility] [address] [place] [address] [facility], [facility] Mobile Home Draw [address] [place] [address] 01/17/2024 8:00 AM EST Office Visit [address] [phone] Shara Ray MD [address] [place] [address] [place] [address] 03/27/2024 8:00 AM EST Laboratory Lab Mobile Phlebot[facility] [address] [place] [address] [facility], [facility] Mobile Home Draw [address] [place] [address] 06/09/2024 1:30 PM EDT Office Visit Allergy/Immunology [facility] [place] [address] [place] [address] Rae Ramirez PA-C [address] [place] [address] 06/24/2024 1:40 PM EDT Office Visit [address] [phone] Shara Ray MD [address] [place] [address] [place] [address] Scheduled Procedures Name Priority Associated Diagnoses Date/Ti [...] Additional history exists CKD PHOS USE SMARTSET 28760 03/21/2024 02/0 02/2023, 12/19/2022, 11/28/2022, Additional history exists Albumin/Creatinine Ratio 05/06/2024 024, 12/03/2022, 02/05/2022, Additional history exists TSH 06/06/2024 06/07/2023, 05/19, 06/28/2021, Additional history exists CKD HGB USE SMARTSET 74985 06/18/202406/18, 06/19/2023, 05/07/2023, Additional history exists DTaP,Tdap,and [...] this encounter Medical Devices Implanted Type Area Project Finance Analyst Device Identifier Shelf Expiration Date Model / Serial / Lot [place] [employer]ocomposite - Sn/A - [id number] Implanted:Qty: 2 on 12/13/2021 by Moris Jimenez, DO at OR [facility] Left: Leg Lower [employer] 07/18/2024 [id number] / N/A / [id number] [employer] Bbtrauma Foam Pack - [id number] - [id number] Implanted:Qty: 1 on 12/13/2021 by Moris Jimenez, DO at OR [facility] Left: Leg Lower MICHA : TRAUMA 01/15/[id number] / [id number] / [id number] documented as of this encounter Visit Diagnoses Diagnosis Chronic heart failure with preserved ejection fraction (HCC)- Primary Major depressive disorder, recurrent, moderate (HCC) Major depressive disorder, recurrent episode, moderate Nocturnal hypoxia Hypoxemia Restrictive lung disease Other diseases of lung, not elsewhere classified Type 2 diabetes mellitus with stage 3b chronic kidney disease, without long-term current use of insulin (HCC) Other chronic pain Generalized anxiety disorder Hypothyroidism, postablative Other postablative hypothyroidism Dyslipidemia, goal LDL below 100 Other and unspecified hyperlipidemia Tachy-sammi syndrome (HCC) Sinoatrial node dysfunction Old myocardial infarct Old myocardial infarction documented in this encounter Advance Directives Latest Code Status on File Code Status Date Activated Date Inactivated Comments Full Code 12/12/2021 7:18 PM 12/20/2021 6:08 PM This order reflects the patients wishes and were consensually agreed upon. Question Answer Comments Discussion of Advance Directives occurred with: Patient Care Teams Statement Clerk Relationship Specialty Start Date End Date Shara Ray MD [address] [place] [address] [place] [phone] PCP - General Family Medicine 03/08/23 documented as of this encounter
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
--- OUTSIDE RECORDS SUMMARY | 2023-07-10 16:39 | External Medical Summary | Summary of Care ---
Author Name Unknown Organization [facility] Address [address] [facility] [place] [address] Phone [phone] Care Team Providers Care Stained Glass Painter Name Role Phone Shara Ray MD Primary Care Provide r Reason for Visit * Reason Onset Date Comments Medical Nutrition Therapy 06/20/2023 Encounter Details Date Type Department Care Team (Late st Contact Info) Description 06/20/2023 11:10 AM EDT Scheduled Telephone [facility], [facility] [address] [facility] [place] [address] Vee Santacruz RDN [address] [facility] [place] [address] Allergies Active Allergy Reactions Criticality Noted Date [...] BEDTIME 200 Tablet 1 02/05/2023 Active Nystatin 177026 UNIT/ML Mouth/Throat SuspensionIndication s:Thrush Swish and swallow [...] TO ER 75 Tablet 0 03/08/2023 Active traMADol HCl 50 MG Oral Tablet (Ultram)Indications: Generalized osteoarthritis,Post- traumatic osteoarthritis of right knee,Closed nondisplaced fracture of left tibial tuberosity with routine healing Take 1 Tablet by mouth 2 times a day as needed for Pain, Severe. 60 Tablet 0 03/08/2023 Active Combivent Respimat 20-100 MCG/ACT Inhalation Aerosol [...] MEDS 100 Tablet 1 04/04/2023 5 Active metOLazone 5 MG Oral Tablet (Zaroxolyn) Take one 1/2 hour prior to torsemide in the morning on days directed 12 Tablet 5 04/08/2023 Active Torsemide 100 MG Oral Tablet (Demadex)Indications [...] the morning. 45 Tablet 1 06/20/2023 Active documented as of this encounter (statuses as of 06/20/2023) Active Problems Problem Noted Date Diagnosed Date Major depressive disorder, recurrent, moderate 0 04/03/2023 Last Assessment & Plan: Mood stable on current dose celexa Other persistent atrial fibrillation 04/03/2023 Last Assessment & Plan: Rate controlled Continue coumadin Atherosclerosis of [place] co ronary artery without angina pectoris 04/03/2023 [...] left, subsequent encounter 09/2021 Overview: [facility] ER ulstrasound shows hematoma calf, [...] Remote Patient Monitoring Vendor: [facility] Device(s): Connected Scale Self - Management Plan [...] & Plan: Symptoms well controlled on omeprazole area development consultant current use of anticoagulant therapy 0 05/10/2004 Overview: ICD-10 update of inactive term Rheumatic heart disease 03/05/2002 Old myocardial infarct 01/02/2001 Last Assessment & Plan: Continue Crestor 20 mg daily S/P mitral valve replacement Last Assessment & Plan: Chronic AC coumadin Atherosclerosis of [place] co ronary artery of [place] heart without angina pectoris documented as of [...] IM/IV Chest Xray Additional Comments: Followed by aircraft engine mechanic - Dr. Rashel Sales [facility] Complicated UTI (urinary tract infection) 12/20/2021 05/17/2022 Mild protein-calorie malnutrition 12/05/2021 06/20/2023 Chronic obstructive pulmonary disease 08/21/2021 08/30/2022 Overview: Per COPD GOLD Classification Last Assessment & Plan: No SOB. O2 stable on RA Continue Duonebs and Breo Chronic diastolic CHF (conge stive heart failure) 07/18/2021 08/21/2021 Cough variant asthma 01/16/2021 03/09/2 022 Chronic kidney disease, stage 3b 08/02/2020 [...] Overview: Per CKD protocol #1 ORBIT-AF Research Other*[id number] 06/02/2010 04/18/2011 Overview: PROJECT: #[id number], SPONSOR: [employer], PI: Adolfo De Jesus MD [...] can be closed. CONTACT: Roberto Carlos Huertas, Railcar Brake Operator Type 2 diabetes mellitus wit h [...] Miscellaneous Notes * Telephone Encounter - Vee Santacruz RDN - 06/20/2023 2:14 PM EDT NUTRITION FOLLOW-UP NOTE - OUTPATIENT Shayla Name: Abdi Bowling Location: [facility] AT [facility] Date: 06/20/2023 Time: 2:17 PM Reason for Nutrition Follow-up: CKD Stage 3b NUTRITION ASSESSMENT: Call placed to patient for nutrition follow up. Currently out of house. Will not be home for some time. Agrees for RASHAUN to contact her at a later date. RASHAUN Amos AT [facility] documented in this encounter Plan of Treatment Upcoming Encounters Date Type Department Care Team (Late st Contact Info) Description 06/21/2023 2:30 PM EDT Office Visit Cardiology, [facility] [address] [place] [address] Hadley Molina MD [address] [place] [address] 06/24/2023 10:30 AM EDT Scheduled Telephone [facility], [facility] [address] [facility] [place] [address] Vee Santacruz RDN [address] [facility] [place] [address] 06/24/2023 11:00 AM EDT Office Visit Hematology/Oncology [facility] [place] 200 [facility] [place] [phone] Bouchra Del Cid CRNP [address] [facility] [place] [address] 06/26/2023 7:05 AM EDT Laboratory Lab Mobile Phlebotomy [facility] [address] [facility] [place] [address] [facility], [facility] Mobile Home Draw [address] [employer] [facility] [place] [address] 06/26/2023 6:00 PM EDT Anticoagulation Pharmacy Call Center WB [address] [place] [address] Ccps, [facility] 58 60 [facility] [place] [address] 07/04/2023 2:40 PM EDT Office Visit Nephrology [address] [place] [phone] Aliyah Lacey MD [address] [place] [place] [address] 07/08/2023 8:30 AM EDT [facility] Visit [facility], [facility] [place] [address] Valentina Laws, RN [address] [place] [address] 08/05/2023 1:00 PM EDT Nurse Only Ancillary [address] [place] [address] Andriy, Nurse [address] [place] [address] 09/20/2023 8:00 AM EDT Laboratory Lab Mobile Phlebotomy [facility] [address] [place] [address] [facility] Mobile Home Draw [address] [place] [address] 09/24/2023 11:30 AM EDT Office Visit Nephrology, [facility] [place] [place] [address] ZeKary bliss PA-C [address] [place] [address] 12/20/2023 8:00 AM EDT Laboratory Lab Mobile Phlebotomy [facility] [address] [place] [address] [facility] Mobile Home Draw [address] [place] [address] 01/17/2024 8:00 AM EST Office Visit Family Medicine [address] [place] [phone] Shara Ray MD [address] [place] [address] [place] [address] 03/27/2024 8:00 AM EST Laboratory Lab Mobile Phlebotomy [facility] [address] [place] [address] [facility] Mobile Home Draw [address] [place] [address] 06/09/2024 1:30 PM EDT Office Visit Allergy/Immunology [facility] [place] [address] [place] [address] Rae Ramirez PA-C [address] [place] [address] 06/24/2024 1:40 PM EDT Office Visit Family Medicine [address] [phone] Shara Ray MD [address] [place], [place] [address] [place] [address] Scheduled Procedures Name Priority Associated Diagnoses Date/Ti me COLONOSCOPY FLEXIBLE PROXIMAL DIAGNOSTIC Recall Screen for colon cancer Health Maintenance Due Date Last Done Comments Alpha-1 Antitrypsin 07/29/1971 Cologuard 1998 Sigmoidoscopy 1998 Fecal Occult Blood [...] Additional history exists CKD PHOS USE SMARTSET 53825 03/21/2024 02/0 02/2023, 12/19/2022, 11/28/2022, Additional history exists Albumin/Creatinine Ratio 05/06/2024 024, 12/03/2022, 02/05/2022, Additional history exists O2 ASSESSMENT COMPLETED IN PAST YEAR FOR COPD 06/03/2024 06/04/2023 TSH 06/06/2024 06/07/2023, 05/19, 06/28/2021, Additional history exists CKD HGB USE SMARTSET 59295 06/18/202406/18, 06/19/2023, 05/07/2023, Additional history exists DTaP,Tdap,and [...] this encounter Medical Devices Implanted Type Area Vice President Of Communications Device Identifier Shelf Expiration Date Model / Serial / Lot [place] Suture Biocomposite - Sn/A - [id number] Implanted:Qty: 2 on 12/13/2021 by Moris Jimenez, DO at OR [facility] Left: Leg Lower [employer] 07/18/2024 AR-[id number] / N/A / [id number] Vitoss Bbtrauma Foam Pack - [id number] - [id number] Implanted:Qty: 1 on 12/13/2021 by Moris Jimenez, DO at OR [facility] Left: Leg Lower MICHA : TRAUMA 01/15/2022 / [id number] / [id number] documented as of this encounter Advance Directives Latest Code Status on File Code Status Date Activated Date Inactivated Comments Full Code 12/12/2021 7:18 PM 12/20/2021 6:08 PM This order reflects the patients wishes and were consensually agreed upon. Question Answer Comments Discussion of Advance Directives occurred with: Patient Care Teams Stained Glass Painter Relationship Specialty Start Date End Date Shara Ray MD [address] [place] [address] [place] [phone] PCP - General Family Medicine 03/08/23 documented as of this encounter
--- OUTSIDE RECORDS SUMMARY | 2023-07-10 16:40 | External Medical Summary | Summary of Care ---
Author Name Unknown Organization [facility] Address [address] [facility] [facility] [place] [address] Phone [phone] Care Team Providers Care Marine Underwriter Name Role Phone Shara Ray MD Primary Care Provide r Reason for Visit * Reason Comments Dosage Adjustment Via Phone (anticoag Cl inic) Encounter Details Date Type Department Care Team (Latest Contact Info) Description 06/19/2023 6:00 PM EDT Anticoagulation Pharmacy Call Center [phone] [place] [address] [facility] [address] [place] [address] extermination inspector current use of anticoagulant therapy*; History of [...] as of this encounter (statuses as of 06/19/2023) Medications Medication Sig Dispensed Refills Start Date [...] as needed 50 mL 0 12/06/2022 Active Spironolactone 25 MG Oral Tablet (Aldactone) TAKE ONE-HALF TABLET BY MOUTH IN THE MORNING 50 Tablet 1 12/10/2022 4 Active Sucralfate 1 GM/10ML Oral Suspension (Carafate) [...] 200 Tablet 1 02/05/2023 4 Active Nystatin 394336 UNIT/ML Mouth/Throat SuspensionIndication s:Thrush Swish and swallow 5 mL in the morning and 5 mL at noon and 5 mL in the evening and 5 mL before bedtime. For thrush.. 240 mL 1 02/14/2023 Active Warfarin Sodium 2.5 MG Oral Tablet (Coumadin) Take 1 and 1/2 to 2 tablets by mouth daily [facility] 180 Tablet 3 03/06/2023 Active Nitroglycerin [...] Pain, Severe. 60 Tablet 0 03/08/2023 Active Ipratropium-Albutero l 0.5-2.5 (3) MG/3ML Inhalation Solution (Duoneb) Inhale 3 mL by mouth every 6 hours as needed. 0 Active Combivent Respimat 20-100 MCG/ACT Inhalation Aerosol [...] SPRAYS BEFORE BEDTIME 30 mL 2 06/04/2023 5 Active Buprenorphine 5 MCG/HR Transdermal Patch Weekly [...] cold sores. 4 Tablet 11 06/19/2023 Active documented as of this encounter (statuses as of 06/19/2023) Active Problems Problem Noted Date Diagnosed Date Major depressive disorder, recurrent, moderate 0 04/03/2023 Last Assessment & Plan: Mood stable on current dose celexa Other persistent atrial fibrillation 04/03/2023 Last Assessment & Plan: Rate controlled Continue coumadin Atherosclerosis of [place] co ronary artery without angina pectoris 04/03/2023 Iron deficiency anemia 09/21/2022 Last Assessment & Plan: Had reaction to IV iron (things looked yellow and she passed out). Has another appt with infusion clinic in Dec 2022. They will determine if there is anything else that she can take. Restless leg syndrome 09/21/2022 Last Assessment & Plan: Stable on Requip COPD, group B, by GOLD 2017 classification 08/27 Overview: Per COPD GOLD Classification Last Assessment [...] IM/IV Chest Xray Additional Comments: Followed by press helper - Dr. Rashel Sales [facility] Closed nondisplaced fracture of left tibial tuberosity with routine healing 12/12/2021 Mild protein-calorie malnutrition 12/05/2021 Controlled substance agreement signed 12/05/2021 Hematoma of leg, left, subsequent encounter 09/2021 Overview: [facility] ER ulstrasound shows hematoma calf, INR [...] in the Comments) Remote Patient Monitoring Vendor: [facility] Device(s): Connected Scale Self - Management Plan [...] & Plan: Symptoms well controlled on omeprazole [facility] current use of anticoagulant therapy 0 05/10/2004 Overview: ICD-10 update of inactive term Rheumatic heart disease 03/05/2002 Old myocardial infarct 01/02/2001 Last Assessment & Plan: Continue Crestor 20 mg daily S/P mitral valve replacement Last Assessment & Plan: Chronic AC coumadin Atherosclerosis of [place]gr[place] co ronary artery of m[place]grath heart without angina pectoris documented as of this encounter (statuses as of 06/19/2023) Resolved Problems Problem Noted Date Diagnosed Date Resolved Date Complicated UTI (urinary tract infection) 12/20/2021 05/17/2022 Chronic obstructive pulmonary disease 08/21/2021 08/30/2022 Overview: Per COPD GOLD Classification Last Assessment & Plan: No SOB. O2 stable on RA Continue Edna Chronic diastolic CHF (conge stive heart failure) [...] Overview: Per CKD protocol #1 [employer]BIT-[employer] Research Other*[id number] 06/02/2010 04/18/2011 Overview: PROJECT: #[id number], SPONSOR: Aileen, PI: Adolfo De Jesus MD [...] can be closed. CONTACT: Roberto Carlos Huertas, Lithograph Designer Type 2 diabetes mellitus wit h [...] as of this encounter (statuses as of 06/19/2023) Immunizations Name Administration Dates Next Due COVID-19 [...] as of this encounter Progress Notes * Maylin Pitts PHARM Tech - 06/19/2023 2:32 PM EDT Contacts Type Contact Phone/Fax 06/19/2023 02:31 PM EDT Phone (Outgoing) Abdi Bowling (Self) [phone] (M) Spoke to Patient Subjective Patient Findings [...] communicated as noted by Pharmacist: Yes GORGE WILKINSON 06/19/2023, 2:32 PM * Kirby Gates RPh - 06/19/2023 2:24 PM EDT Images from the original note were not included. Coumadin Clinic (region specific) Objective Current Warfarin Dose As of 06/19/2023 Warfarin maintenance plan: 7.5 mg (2.5 mg x 3) every Mon, Sat; 5 mg (2.5 mg x 2) all other days INR Result As of 06/19/2023 INR goal: 3.0-3.5 INR used for dosin.0 (06/19/2023) Assessment & Plan Warfarin Plan As of 06/19/2023 Full warfarin instructions: 06/18: 2.5 mg; Otherwise 7.5 mg every Mon, Sat; 5 mg all other days Next INR check: 06/26/2023 Sent MyG Repeat PT/INR in 1 week(s) Weekly dose: not changed Additional Dosing Information: Description GML WedFri, prefers Wed ([facility], [facility], or [facility]) Please also send myG Tech to contact patient with dose instructions as noted. Kirby Gates RPh 06/19/2023, 2:24 PM documented in this encounter Plan of Treatment Upcoming Encounters Date Type Department Care Team (Late st Contact Info) Description 06/20/2023 11:10 AM EDT Scheduled Telephone [facility] [address] [facility] [address] Vee Santacruz RDN [address] [facility] [place] [address] 06/20/2023 1:40 PM EDT Office Visit Family Medicine [address] [place] [phone] Shara Ray MD [address] [place] [address] [place] [address] 06/21/2023 2:30 PM EDT Office Visit Cardiology, [facility] [address] [place] [address] Hadley Molina MD 132 [facility] [place] [address] 06/24/2023 11:00 AM EDT Office Visit Hematology/Oncology [facility] 200 [facility] [place] [phone] Bouchra Del Cid CRNP 400 [facility] [place] [address] 07/04/2023 2:40 PM EDT Office Visit Nephrology [address] [place] [address] Aliyah Lacey MD 200 [facility] [place] [address] 07/08/2023 8:30 AM EDT Home Visit [facility] [place], [facility] [place] [address] Valentina Laws, RN 132 [place] [address] 08/05/2023 1:00 PM EDT Nurse Only Ancillary [address] [place] [address] [place], Nurse [address] [place] [address] 09/20/2023 8:00 AM EDT Laboratory Lab Mobile Phlebotomy [facility] [address] [place] [address] [facility], [facility] Mobile Home Draw [address], [place] [address] 09/24/2023 11:30 AM EDT Office Visit Nephrology, [facility] [address] [place] [address] Kary Pena PA-C 200 [facility] [place] [address] 12/20/2023 8:00 AM EDT Laboratory Lab Mobile Phlebotomy [facility] [address] [place] [address] [facility], [facility] Mobile Home Draw [address] [place] [address] 03/27/2024 8:00 AM EST Laboratory Lab Mobile Phlebotomy [facility] [address] [place] [address] [facility], [facility] Mobile Home Draw [address] [place] [address] 06/09/2024 1:30 PM EDT Office Visit Allergy/Immunology [employer] 200 [facility] [place] [address] Rae Ramirez PA-C 200 [facility] [place] [address] Scheduled Procedures Name Priority Associated Diagnoses Date/Ti [...] Additional history exists CKD PHOS USE SMARTSET 22334 03/21/2024 02/0 02/2023, 12/19/2022, 11/28/2022, Additional history exists Albumin/Creatinine Ratio 05/06/2024 024, 12/03/2022, 02/05/2022, Additional history exists O2 ASSESSMENT COMPLETED IN PAST YEAR FOR COPD 06/03/2024 06/04/2023 TSH 06/06/2024 06/07/2023, 05/19, 06/28/2021, Additional history exists CKD HGB USE SMARTSET 52320 06/18/202406/18, 06/19/2023, 05/07/2023, Additional history exists DTaP,Tdap,and [...] this encounter Medical Devices Implanted Type Area Natural Sciences Manager Device Identifier Shelf Expiration Date Model / Serial / Lot Mitchell Suture Biocomposite - Sn/A - [id number] Implanted:Qty: 2 on 12/13/2021 by Moris Jimenez DO at OR [facility] Left: Leg Lower [employer] 07/18/2024 [id number] / N/A / [id number] Vitoss Bbtrauma Foam Pack - [id number] - [id number] Implanted:Qty: 1 on 12/13/2021 by Moris Jimenez DO at OR [facility] Left: Leg Lower MICHA : TRAUMA 01/15/[id number] / [id number] / [id number] documented as of this encounter Visit Diagnoses Diagnosis [facility] current use of anticoagulant therapy- Primary History [...] Advance Directives occurred with: Patient Care Teams Marine Underwriter Relationship Specialty Start Date End Date Shara Ray MD [address] [place] [address] [place] [address] PCP - General Family Medicine 03/08/23 documented as of this encounter
--- OUTSIDE RECORDS SUMMARY | 2023-07-10 16:40 | External Medical Summary | Summary of Care ---
Author Name Unknown Organization [facility] Address 100 [facility] [address] Phone [phone] Care Team Providers Care Electric Motorman Name Role Phone Shara Gorman MD Primary Care Provide r Reason for Visit * Reason Onset Date Comments Medication Refill 06/17/2023 Encounter Details Date Type Department Care Team (Late st Contact Info) Description 06/17/2023 Refill Family Medicine [address] [place] [phone] John Blanco MD [address] [place] [address] [place] [id number] Cold sore Allergies Active Allergy Reactions Criticality Noted Date [...] AT BEDTIME DIRECTED 90 g 2 08/14/2022 08/14/19 24 Active Albuterol Sulfate HFA 108 (90 Base) MCG/ACT Inhalation Aerosol Solution INHALE TWO PUFFS BY MOUTH EVERY MORNING - TWO PUFFS EVERY EVENING - AND EVERY 4 HOURS NEEDED FOR WORSENING COUGH, CHEST TIGHTNESS, FOR WHEEZING OR FOR SHORTNESS OF BREATH 54 g 2 08/13/2022 08/13/19 24 Active Folic Acid 1 MG Oral TabletIndications:M ild protein-calorie malnutrition (HCC) TAKE ONE TABLET BY MOUTH EVERY MORNING 100 Tablet 1 07/21/2022 07/21/19 24 Active rOPINIRole HCl 2 MG [...] IN THE MORNING 50 Tablet 1 12/10/2022 12/10/19 24 Active Sucralfate 1 GM/10ML Oral Suspension (Carafate) [...] AND BEFORE BEDTIME 200 Tablet 1 02/05/2023 02/05/20 24 Active Nystatin 575722 UNIT/ML Mouth/Throat SuspensionIndicatio ns:Thrush Swish and swallow 5 mL in the morning and 5 mL at noon and 5 mL in the evening and 5 mL before bedtime. For thrush.. 240 mL 1 02/14/2023 Active Warfarin Sodium 2.5 MG Oral Tablet (Coumadin) Take 1 and 1/2 to 2 tablets by mouth daily as directed by [facility] 180 Tablet 3 03/06/2023 Active Nitroglycerin 0.4 MG Sublingual Tablet Sublingual (Nitrostat)Indicati ons:Old myocardial infarct,Atrial fibrillation (HCC),HTN, goal to be determined PLACE 1 TABLET UNDER THE TONGUE EVERY 5 MINUTES UP TO 3 DOSES NEEDED FOR CHEST PAIN. IF NO RELIEF CALL 911 OR GO TO ER 75 Tablet 0 03/08/2023 Active traMADol HCl 50 MG Oral Tablet (Ultram)Indications :Generalized osteoarthritis,Post -traumatic osteoarthritis of right knee,Closed nondisplaced fracture of left tibial tuberosity with routine healing Take 1 Tablet by mouth 2 times a day as needed for Pain, Severe. 60 Tablet 0 03/08/2023 Active Ipratropium-Albuter ol 0.5-2.5 (3) MG/3ML Inhalation Solution (Duoneb) Inhale 3 mL by mouth every 6 hours as needed. 0 Active Combivent Respimat 20-100 MCG/ACT Inhalation Aerosol Solution (Ipratropium-Albute rol) inhale 1 puff four times daily As Needed for Shortness Of Breath 12 g 1 03/25/2023 Active Ipratropium-Albuter ol 0.5-2.5 (3) MG/3ML Inhalation Solution (Duoneb) inhale 1 vial (3 mL) via nebulizer four times daily As Needed for shortness of breath or wheezing 1080 mL 2 03/25/2023 Active Citalopram Hydrobromide 10 MG Oral Tablet (CeleXA)Indications :BOBBY (generalized anxiety disorder) TAKE ONE TABLET BY MOUTH EVERY MORNING 100 Tablet 1 04/04/2023 04/03/19 25 Active Levothyroxine Sodium 100 MCG Oral Tablet (Levoxyl)Indication s:Hypothyroidism, postablative TAKE ONE TABLET by MOUTH DAILY FIRST THING IN THE MORNING AT LEAST 30 MINUTES PRIOR TO BREAKFAST OR OTHER MEDS 100 Tablet 1 04/04/2023 04/03/19 25 Active metOLazone 5 MG Oral Tablet (Zaroxolyn) Take one 1/2 hour prior to torsemide in the morning on days directed 12 Tablet 5 04/08/2023 Active Torsemide 100 MG Oral Tablet (Demadex)Indication [...] BEFORE A MEAL 90 Tablet 1 05/24/2023 05/24/19 25 Active Azelastine HCl 0.1 % Nasal Solution (Astelin) ADMINISTER INTO NOSTRIL TWO SPRAYS IN THE MORNING AND TWO SPRAYS BEFORE BEDTIME 30 mL 2 06/04/2023 06/04/19 25 Active Buprenorphine 5 MCG/HR Transdermal Patch Weekly (Butrans) Apply 1 patch to skin once a week as directed 0 05/31/2023 Active Nebulizer/Tubing/Mo uthpiece Kit Use as directed 1 Kit 1 06/04/2023 Active oxygen IN GAS Use 2 L/min(Oxygen) as directed at bedtime. Ordered by pulmonary in Mar 2023. 0 Active valACYclovir HCl 1 GM Oral Tablet (Valtrex)Indication s:Cold sore Take 2 Tablets by mouth in the morning and 2 Tablets before bedtime. for cold sores. 4 Tablet 11 06/19/2023 Active valACYclovir HCl 1 GM Oral Tablet (Valtrex)Indication s:Cold sore Take 2 Tablets by mouth in the morning and 2 Tablets before bedtime. for cold sores. 4 Tablet 11 05/30/2022 06/17/19 24 Discontinu ed(Refill) documented as of this encounter (statuses as of 06/19/2023) Active Problems Problem Noted Date Diagnosed Date Major depressive disorder, recurrent, moderate 0 04/03/2023 Last Assessment & Plan: Mood stable on current dose celexa Other persistent atrial fibrillation 04/03/2023 Last Assessment & Plan: Rate controlled Continue coumadin Atherosclerosis of [place] co ronary artery without angina pectoris [...] IM/IV Chest Xray Additional Comments: Followed by welding machine operator electro gas - Dr. Rashel Sales [facility] Closed nondisplaced fracture of left tibial tuberosity with routine healing 12/12/2021 Mild protein-calorie malnutrition 12/05/2021 Controlled substance agreement signed 12/05/2021 Hematoma of leg, left, subsequent encounter 09/2021 Overview: [facility] ER ulstrasound shows hematoma calf, INR [...] in the Comments) Remote Patient Monitoring Vendor: [facility] Device(s): Connected [...] veins of both legs with edema 8 Restless legs syndrome 12/06/2016 Last Assessment & Plan: Symptoms are well controlled at this time. She is taking Requip. Dyslipidemia, goal LDL below 100 06/21/2015 Last Assessment & Plan: Lipids stable 12/08/21 Continue Cresor Hypothyroidism, postablative 09/24/2013 Last Assessment & Plan: Continue synthroid 100 mcg Generalized osteoarthritis 01/31/2010 Gastroesophageal reflux dise ase with esophagitis without hemorrhage 12/03/2008 Overview: min gastric inflammation and mod active chronic esophageal inflammation-repeat EGD in 2 yrs Last Assessment & Plan: Symptoms well controlled on omeprazole salvage determiner current use of anticoagulant therapy 0 05/10/2004 Overview: ICD-10 update of inactive term Rheumatic heart disease 03/05/2002 Old myocardial infarct 01/02/2001 Last Assessment & Plan: Continue Crestor 20 mg daily S/P mitral valve replacement Last Assessment & Plan: Chronic AC coumadin Atherosclerosis of [place] co ronary artery of [place] heart without angina pectoris documented as [...] Anxiety 09/10/2017 04/26/2021 MEDICATION USE AGREEMENT 08/29/201710/2021 TIA (transient ischemic attack) 12/23/2013 12/06/2016 Overview: embolic Hyperlipidemia with target LDL less than 100 4 06/05/2016 Overview: ICD-10 update of inactive term Dyslipidemia, goal LDL below 70 09/24/2013 12/23/2013 Hypothyroidism (acquired) 09/03/2013 KIDNEY DISEASE, CHRONIC, STA GE III (GFR 30-59 ML/MIN) 07/09/2011 08/28/2018 Overview: Per CKD protocol #1 [employer]BIT-[employer] Research Other*[id number] 06/02/2010 04/18/2011 Overview: PROJECT: #[id number], SPONSOR: Aileen, PI: Adolfo De Jesus MD [...] can be closed. CONTACT: Roberto Carlos Huertas, Sawmill Worker Type 2 diabetes mellitus wit h hemoglobin [...] encounter Miscellaneous Notes * Telephone Encounter - Keya Bennett [facility] - 06/19/2023 10:19 AM EDT Signed Prescriptions: Disp Refills valACYclovir HCl 1 GM Oral Tablet (Valtrex)4 Tabl*11 Sig: Take 2Tablets by mouth in the morning and 2 Tablets before bedtime. for cold sores.Authorizing Provider: Marlene GORMAN User: KEYA BENNETT documented in this encounter Plan of Treatment Upcoming Encounters Date Type Department Care Team (Late st Contact Info) Description 06/19/2023 6:00 PM EDT Anticoagulation Pharmacy Call Center [phone] [place] [address] [facility], [facility] 58 60 [facility] [place] [address] 06/20/2023 11:10 AM EDT Scheduled Telephone [facility], [facility] [address] [facility] [place] [address] Vee Santacruz, KOSTAN [address] [facility] [place] [address] 06/20/2023 1:40 PM EDT Office Visit Family Medicine [address] [place] [phone] Shara Gorman MD [address] [place] [address] [place] [address] 06/21/2023 2:30 PM EDT Office Visit Cardiology, [facility] 132 [facility] [place] [address] Hadley Molina MD 132 [facility] [place] [address] 06/24/2023 11:00 AM EDT Office Visit Hematology/Oncology [facility] 200 [facility] [place] [phone] Bouchra Del Cid CRNP [address] [place] [address] [place] [address] 07/04/2023 2:40 PM EDT Office Visit Nephrology [address] [place] [address] Aliyah Lacey MD [address] [place] [address] 07/08/2023 8:30 AM EDT Home Visit [facility] [place], [facility] [address] [place] [address] Valentina Laws, RN 132 [facility] [place] [address] 08/05/2023 1:00 PM EDT Nurse Only Ancillary [address] [place] [address] [place], Nurse [address] [place] [address] 09/20/2023 8:00 AM EDT Laboratory Lab Mobile Ph[facility]bot[facility] [address] [place] [address] [facility], [facility] Mobile Home Draw [address] [place] [address] 09/24/2023 11:30 AM EDT Office Visit Nephrology, [facility] [address] [facility] [address] [place] [address] ZeKary bliss PA-C 200 [facility] [place] [address] 12/20/2023 8:00 AM EDT Laboratory Lab Mobile Phlebotomy [facility] [address] [place] [address] [facility], l Mobile Home Draw [address] [place] [address] 03/27/2024 8:00 AM EST Laboratory Lab Mobile Phlebotomy [facility] [address] [place] [address] [facility], l Mobile Home Draw [address] [place] [address] 06/09/2024 1:30 PM EDT Office Visit Allergy/Immunology [place] 200 [facility] [place] [address] Rae Ramirez PA-C 200 [facility] [place] [address] Scheduled Procedures Name Priority Associated Diagnoses Date/Ti [...] Additional history exists CKD PHOS USE SMARTSET 58629 03/21/2024 02/0 02/2023, 12/19/2022, 11/28/2022, Additional history exists Albumin/Creatinine Ratio 05/06/2024 024, 12/03/2022, 02/05/2022, Additional history exists CKD HGB USE SMARTSET 42879 05/06/202405/06, 03/06/2023, 03/06/2023, Additional history exists O2 ASSESSMENT COMPLETED IN PAST YEAR FOR COPD 06/03/2024 06/04/2023 TSH 06/06/2024 06/07/2023, 05/19, 06/28/2021, Additional history exists DTaP,Tdap,and Td Vaccines (3 [...] encounter Medical Devices Implanted Type Area Senior Front End Engineer Device Identifier Shelf Expiration Date Model / Serial / Lot [place] Suture Biocomposite - Sn/A - [id number] Implanted:Qty: 2 on 12/13/2021 by Moris Jimenez DO at OR [facility] Left: Leg Lower [employer] 07/18/2024 AR-[id number] / N/A / [id number] Vitoss Bbtrauma Foam Pack - [id number] - [id number] Implanted:Qty: 1 on 12/13/2021 by Moris Jimenez DO at OR [facility] Left: Leg Lower MICHA : TRAUMA 01/15/2022 [id number] / [id number] / [id number] documented as of this encounter Visit Diagnoses Diagnosis Cold sore Herpes simplex without mention of complication documented in this encounter Advance Directives Latest Code Status on File Code Status Date Activated Date Inactivated Comments Full Code 12/12/2021 7:18 PM 12/20/2021 6:08 PM This order reflects the patients wishes and were consensually agreed upon. Question Answer Comments Discussion of Advance Directives occurred with: Patient Care Teams Electric Motorman Relationship Specialty Start Date End Date Shara Gorman MD [address] [place] [address] [place] [phone] PCP - General Family Medicine 03/08/23 documented as of this encounter
--- OUTSIDE RECORDS SUMMARY | 2023-07-10 16:40 | External Medical Summary | Summary of Care ---
Author Name Unknown Organization [facility] Address [address] [place] [facility] [place] [place] [address] Phone [phone] Care Team Providers Care Farmworker Name Role Phone Mercedes Gorman MD Primary Care Provide r Reason for Visit * Reason Comments Medication Refill Encounter Details Date Type Department Care Team (Late st Contact Info) Description 06/19/2023 Refill Family Medicine [address] [place] [address] John Blanco MD [address] [place] [address] [place] [address] Allergies Active Allergy Reactions Criticality Noted Date [...] Tablet 1 02/05/2023 02/05/20 24 Active Nystatin 939030 UNIT/ML Mouth/Throat SuspensionIndicatio ns:Thrush Swish and swallow [...] 06/19/2023 Active Spironolactone 25 MG Oral Tablet (Aldactone) TAKE ONE-HALF TABLET BY MOUTH IN THE MORNING 50 Tablet 1 06/20/2023 06/20/19 25 Active Spironolactone 25 MG Oral Tablet (Aldactone) TAKE ONE-HALF TABLET BY MOUTH IN THE MORNING 50 Tablet 1 12/10/2022 06/19/19 24 Discontinu ed(Refill) documented as of this encounter (statuses as of 06/20/2023) Active Problems Problem Noted Date Diagnosed Date Major depressive disorder, recurrent, moderate 0 04/03/2023 Last Assessment & Plan: Mood stable on current dose celexa Other persistent atrial fibrillation 04/03/2023 Last Assessment & Plan: Rate controlled Continue coumadin Atherosclerosis of [place] co ronary artery without angina pectoris 04/03/2023 [...] IM/IV Chest Xray Additional Comments: Followed by load builder - Dr. Rashel Sales [facility] Closed nondisplaced fracture of left tibial tuberosity with routine healing 12/12/2021 Mild protein-calorie malnutrition 12/05/2021 Controlled substance agreement signed 12/05/2021 Hematoma of leg, left, subsequent encounter 09/2021 Overview: [facility] ER ulstrasound shows hematoma calf, INR 4.2, [...] Remote Patient Monitoring Vendor: [facility] Device(s): Connected Scale Self - Management Plan [...] & Plan: Symptoms well controlled on omeprazole skilled nursing current use of anticoagulant therapy 0 05/10/2004 Overview: ICD-10 update of inactive term Rheumatic heart disease 03/05/2002 Old myocardial infarct 01/02/2001 Last Assessment & Plan: Continue Crestor 20 mg daily S/P mitral valve replacement Last Assessment & Plan: Chronic AC coumadin Atherosclerosis of [place] co ronary artery of [place] heart without angina pectoris documented as of this encounter (statuses as of 06/20/2023) Resolved Problems Problem Noted Date Diagnosed Date Resolved Date Complicated UTI (urinary tract infection) 12/20/2021 05/17/2022 Chronic obstructive pulmonary disease 08/21/2021 08/30/2022 Overview: Per COPD GOLD Classification Last Assessment & Plan: No SOB. O2 stable on RA Continue Danetteo Chronic diastolic CHF (conge stive heart failure) [...] Overview: Per CKD protocol #1 ORBIT-AF Research Other*[id number] 06/02/2010 04/18/2011 Overview: PROJECT: #[id number], SPONSOR: Aileen, PI: Adolfo De Jesus MD [...] can be closed. CONTACT: Roberto Carlos Huertas, Fire Information Officer Type 2 diabetes mellitus wit h hemoglobin [...] MCG/0.3 mL, 12 YRS AND ABOVE, IM ([employer]) 12/03/2022 COVID-19, mRNA, LNP-s, PF, B ooster, [...] encounter Miscellaneous Notes * Telephone Encounter - Mercedes Gorman MD - 06/20/2023 11:38 AM EDT Signed Prescriptions: Disp Refills Spironolactone 25 MG Oral Tablet (Aldacton*50 Tab*1 Sig: TAKE ONE-HALF TABLET BY MOUTH IN THE MORNING Authorizing Provider: MERCEDES GORMAN * Telephone Encounter - Lesia Harper [facility] - 06/20/2023 11:24 AM EDT Pending Prescriptions: Disp Refills Spironolactone 25 MG Oral Tablet (Aldacton*50 Tab*1 Sig: TAKE ONE-HALF TABLET BY MOUTH IN THE MORNING * Telephone Encounter - Lesia Harper [facility] - 06/20/2023 11:24 AM EDT Patient has office visit with new provider today. Please approve if appropriate. Thank You Lesia Harper PharmD Clinical Pharmacist [facility] ([facility]) (formerly Telepharmacy) [phone] / [phone] 06/20/2023, 11:24 AM * Telephone Encounter - Lesia Harper [facility] - 06/20/2023 11:23 AM EDT Did you pend patient's preferred pharmacy and medication before forwarding?yes Pharmacy: [email or web address] Pending Prescriptions: Disp Refills Spironolactone 25 MG Oral Tablet (Aldacto*50 Tab*1 Sig: TAKE ONE-HALF TABLET BY MOUTH IN THE MORNING Last Visit: 05/09/2023 (in office), 10/11/2020 (telemedicine) Next Visit: 06/20/2023 If no future appointments scheduled, and last appointment is greater than a year ago, please schedule patient for a follow-up appointment Last date the medication was ordered: 12/10/22 Is this request for a controlled substance?No Urine Drug Screen: Results for orders placed or performed in visit on 05/30/22 TOXICOLOGY, URINE SCREEN W/ CONFIRMATION Result Value Amphetamines Screen, U Negative Benzodiazepines Screen, U Negative Cannabinoids Screen, U Negative Cocaine Metabolite Screen, U Negative Fentanyl Screen, U Negative Hydrocodone Screen, U Negative Methadone Metabolite Screen, U Negative Morphine/Codeine Screen, U Positive (A) Oxycodone Screen, U Negative Narrative Cutoff Concentrations: Drug Level Amphetamines 500 ng/mL Benzodiazepines 100 ng/mL Cannabinoids 50 ng/mL Cocaine Metabolite 150 ng/mL Fentanyl 1 ng/mL Hydrocodone / Hydromorphone 300 ng/mL Methadone Metabolite 100 ng/mL Morphine / Codeine 300 ng/mL Oxycodone / Oxymorphone 100 ng/mL Screening results are presumptive and can only be used for medical purposes. Positive screening results are reflexed to confirmatory testing. *Note: Due to a large number of results and/or encounters for the requested time period, some results have not been displayed. A complete set of results can be found in Results Review. Patient Phone Numbers Labs: Lab Results Component Value Date/Time CREAT 1.6 (H) 06/12/2023 10:34 AM CREAT 1.4 (H) 10/05/2019 12:41 PM CREAT 0.8 12/09/1995 09:50 AM POTASSIUM 4.2 06/12/2023 10:34 AM POTASSIUM 4.0 10/05/2019 12:41 PM POTASSIUM 4.4 12/09/1995 09:50 AM TSH 2.10 06/07/2023 11:52 AM TSH 3.98 09/07/2019 11:00 AM TSH 1.48 12/09/1995 09:50 AM LDLCALC 53 05/29/2023 10:32 AM LDLCALC 61 09/07/2019 11:01 AM LDLDIRECT NOT APPLICABLE 09/07/2019 11:01 AM LDLDIRECT 131 (H) 05/04/2002 11:35 AM ALT 25 03/06/2023 11:28 AM ALT 26 09/07/2019 11:01 AM HGBA1C 7.3 (H) 04/24/2023 11:27 AM HGBA1C 6.3 (H) 09/07/2019 11:01 AM documented in this encounter Plan of Treatment Upcoming Encounters Date Type Department Care Team (Late st Contact Info) Description 06/20/2023 1:40 PM EDT Office Visit Family Medicine [address] [place] [phone] Mercedes Gorman MD [address] [place] [address] [place] [address] 06/21/2023 2:30 PM EDT Office Visit Cardiology, [facility] [address] [facility] [place] [address] Hadley Molina MD 132 [facility] [place] [address] 06/24/2023 11:00 AM EDT Office Visit Hematology/Oncology [facility] Mercedes [address] [facility] [place] [phone] Bouchra Del Cid CRNP [address] [facility] [place] [address] 06/26/2023 7:05 AM EDT Laboratory Lab Mobile Phlebotomy [facility] [address] [facility] [place] [address] Mv[facility], Gml Mobile Home Draw [address] [employer] [place] [address] 06/26/2023 6:00 PM EDT Anticoagulation Pharmacy Call Center WB [address] [facility] [place] [address] [facility] 58 60 [facility] [place] [address] 07/04/2023 2:40 PM EDT Office Visit Nephrology [address] [place] [address] Aliyah Lacey MD 200 [facility] [place] [address] 07/08/2023 8:30 AM EDT Home Visit [facility], [facility] [address] [facility] [place] [address] Valentina Laws, RN 132 [facility] [place] [address] 08/05/2023 1:00 PM EDT Nurse Only Ancillary [address] [place] [address] [place], Nurse [address] [place] [address] 09/20/2023 8:00 AM EDT Laboratory Lab Mobile Phlebotomy [facility] [address] [place] [address] [facility] Mobile Home Draw [address] [place] [address] 09/24/2023 11:30 AM EDT Office Visit Nephrology, [facility] [address] [place] [address] Kary Pena PA-C [address] [place] [address] 12/20/2023 8:00 AM EDT Laboratory Lab Mobile Phlebotomy [facility] [address] [place] [address] [facility] Mobile Home Draw [address] [place] [address] 03/27/2024 8:00 AM EST Laboratory Lab Mobile Phlebotomy [facility] [address] [place], [place] [phone] [facility] Mobile Home Draw [address] [place] [address] 06/09/2024 1:30 PM EDT Office Visit Allergy/Immunology [facility] [employer] [address] [place] [address] Rae Ramirez PA-C [address] [place] [address] Scheduled Procedures Name Priority Associated Diagnoses Date/Ti [...] Additional history exists CKD PHOS USE SMARTSET 02979 03/21/202402/2023, 12/19/2022, 11/28/2022, Additional history exists Albumin/Creatinine Ratio 05/06/2024 024, 12/03/2022, 02/05/2022, Additional history exists O2 ASSESSMENT COMPLETED IN PAST YEAR FOR COPD 06/03/2024 06/04/2023 TSH 06/06/2024 06/07/2023, 05/19, 06/28/2021, Additional history exists CKD HGB USE SMARTSET 79350 06/18/202406/18, 06/19/2023, 05/07/2023, Additional history exists DTaP,Tdap,and [...] this encounter Medical Devices Implanted Type Area Jewelry Sales Coordinator Device Identifier Shelf Expiration Date Model / Serial / Lot Sullivan Suture Biocomposite - Sn/A - [id number] Implanted:Qty: 2 on 12/13/2021 by Moris Jimenez DO at OR [facility] Left: Leg Lower [employer] 07/18/2024 [id number] / N/A / [id number] Vitoss Bbtrauma Foam Pack - [id number] - [id number] Implanted:Qty: 1 on 12/13/2021 by Moris Jimenez DO at OR [facility] Left: Leg Lower MICHA : TRAUMA 01/15/2022 [id number] / [id number] / [id number] documented as of this encounter Advance Directives Latest Code Status on File Code Status Date Activated Date Inactivated Comments Full Code 12/12/2021 7:18 PM 12/20/2021 6:08 PM This order reflects the patients wishes and were consensually agreed upon. Question Answer Comments Discussion of Advance Directives occurred with: Patient Care Teams Farmworker Relationship Specialty Start Date End Date Mercedes Gorman MD [address] [place] [address] [place] [address] PCP - General Family Medicine 03/08/23 documented as of this encounter
--- OUTSIDE RECORDS SUMMARY | 2023-07-10 16:41 | External Medical Summary ---
Author Name Unknown Address Unknown Organization K0G:LABOR[facility]ORY [facility] [address] [place] [address] Laboratory Report Ordering Provider Test Date Status JOLENE CORDERO 06/19/2023 12:30:00 Final Observation Date Value Abnormality Reference (Units ) Status WBC, Total 06/19/2023 12:30:00 6.33 4.00-10.8 0 (K/uL) Final RBC 06/19/2023 12:30:00 4.27 3.85-5.15 (M/uL) Final Hemoglobin 06/19/2023 12:30:00 12.2 12.0-15.3 (g/dL) Final HCT 06/19/2023 12:30:00 37.6 36.0-45.2 (%) Final MCV 06/19/2023 12:30:00 88.1 81.5-97.5 (fL) Final MCH 06/19/2023 12:30:00 28.6 27.0-34.0 (pg) Final MCHC 06/19/2023 12:30:00 32.4 32.0-36.0 (g/dL) Final RDW 06/19/2023 12:30:00 15.0 11.5-15.5 (%) Final Platelets 06/19/2023 12:30:00 137 Below low normal 140 -400 (K/uL) Final MPV 06/19/2023 12:30:00 11.3 6.6-11.1 ( fL) Final Performing Location [facility] [address] - [address] [place] [address]
--- OUTSIDE RECORDS SUMMARY | 2023-07-10 16:41 | External Medical Summary ---
Author Name Unknown Address Unknown Organization K01:[facility] - [address] [place] [address] Laboratory Report Ordering Provider Test Date Status JOLENE CORDERO 06/19/2023 12:30:00 Final Observation Date Value Abnormality Reference (Units ) Status Ferritin 06/19/2023 12:30:00 322 Above high normal 13 -150 (ng/mL) Final Postmenopausal women have hi gher ferritin levels than pre-menopausal women. The above reference interval is based on pre-menopausal women. Performing Location [facility] [address] [place] [address]
--- OUTSIDE RECORDS SUMMARY | 2023-07-10 16:42 | External Medical Summary ---
Author Name Unknown Address Unknown Organization K0G:LAB[facility]ATORY [place] [address] - [address] [place] [address] Laboratory Report Ordering Provider Test Date Status SONIA PANTOJA 06/19/2023 12:30:00 Final Standing order for pt/inr. < br/>Please draw pt/inr every 1 to 4 weeks as requested.
Results to [facility]

Warfarin Therapy
INR: 2.0-3.0 conventional anticoagulation
INR: 2.5-3.5 high intensity anticoagulation Observation Date Value Abnormality Reference (Units ) Status PT 06/19/2023 12:30:00 39.5 Above high normal 11 .6-15.2 (seconds) Final INR 06/19/2023 12:30:00 4.0 Above high normal 0. 8-1.2 Final Performing Location [facility]ORY [facility] 57[address] - [address] [place] [address]
--- OUTSIDE RECORDS SUMMARY | 2023-07-10 16:42 | External Medical Summary | Summary of Care ---
Author Name Unknown Organization [facility] Address [address] [facility] [place] [address] Phone [phone] Care Team Providers Care It Application Administrator Name Role Phone Shara Ray MD Primary Care Provide r Reason for Visit * Reason Onset Date Comments [facility]: Maintenance 06/14/2023 Encounter Details Date Type Department Care Team (Late st Contact Info) Description 06/14/2023 Telephone [facility], [facility] [address] [place] [address] [facility], Nurse [facility] [address] [place] [address] [facility]: Maintenance Allergies Active Allergy [...] as of this encounter (statuses as of 06/14/2023) Medications Medication Sig Dispensed Refills Start Date [...] One daily 100 Capsule 1 01/23/2022 Active valACYclovir HCl 1 GM Oral Tablet (Valtrex)Indications :Cold sore Take 2 Tablets by mouth in the morning and 2 Tablets before bedtime. for cold sores. 4 Tablet 11 05/30/2022 Active Omeprazole 20 MG Oral Capsule Delayed [...] 200 Tablet 1 02/05/2023 4 Active Nystatin 687685 UNIT/ML Mouth/Throat SuspensionIndication s:Thrush Swish and swallow [...] OTHER MEDS 100 Tablet 1 04/04/2023 Active metOLazone 5 MG Oral Tablet (Zaroxolyn) [...] as directed 1 Kit 1 06/04/2023 Active documented as of this encounter (statuses as of 06/14/2023) Active Problems Problem Noted Date Diagnosed Date Major depressive disorder, recurrent, moderate 0 04/03/2023 Last Assessment & Plan: Mood stable on current dose celexa Other persistent atrial fibrillation 04/03/2023 Last Assessment & Plan: Rate controlled Continue coumadin Atherosclerosis of [place] co 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 CONTACT: Roberto Carlos Huertas, Payroll Professional Type 2 diabetes mellitus wit h hemoglobin A1c goal of less than 7.0% 04/24/2010 08/29/2018 Overview: ICD-10 update of inactive term ACTIVE CASE MANAGEMENT Kassie Anthony, RN [phone] 05/10/19 10 12/05/2009 ADVANCE DIRECTIVE INFORMATION 05/09/2009 [...] as of this encounter (statuses as of 06/14/2023) Immunizations Name Administration Dates Next Due COVID-19 [...] Telephone Encounter - Velma Coombs LPN - 06/14/2023 9:53 AM EDT Images from the original note were not included. [facility] Remote Patient Monitoring Unable to contact patient: Trigger type: Abnormal reading(s): Device(s) Triggered: AMC (Advanced Monitored Caregiving): Scale: Trigger weight: 143.8 lbs; weight increased 5 lbs in 6 day(s) Spoke to spouse who states she was instructed to take 1/2 dose of metolazone today per cardiologistand can take every 10 days Denies increased SOB or edema Last BM today Will place on follow up call Asked that the 5/3 RNCM visit be rescheduled as she has appt with Cardiology that day Rescheduled to 56 documented in this encounter Plan of Treatment Upcoming Encounters Date Type Department Care Team (Late st Contact Info) Description 06/15/2023 8:30 AM EDT Scheduled Telephone [facility], [place] [address] [place] [address] [place] [address] [facility], Nurse [facility] [address] [place] [address] 06/19/2023 7:10 AM EDT Laboratory Lab Mobile Phlebotomy [facility] [address] [facility] [place] [address] Mvmg, Gml Mobile Home Draw [address] [facility] [place] [address] 06/19/2023 6:00 PM EDT Anticoagulation Pharmacy Call Center [address] [place] [address] [facility], [facility] [address] [place] [address] 06/20/2023 11:10 AM EDT Scheduled Telephone [facility], [facility] [address] [facility] [place] [address] Vee Santacruz, RDN [address] [facility] [place] [address] 06/20/2023 1:40 PM EDT Office Visit Family Medicine [address] [place] [address] Shara Ray MD [address] [place] [address] [place] [address] 06/21/2023 2:30 PM EDT Office Visit Cardiology, [facility] [address] [place] [address] Hadley Molina MD [address] [place] [address] 06/24/2023 8:30 AM EDT Home Visit [facility], [facility] [address] [place] [address] Valentina Laws RN 132 [facility] [place] [address] 06/24/2023 11:00 AM EDT Office Visit Hematology/Oncology [facility] [place] [address] [place] [address] Bouchra Del Cid CRNP 400 [facility] [place] [address] 07/04/2023 2:40 PM EDT Office Visit Nephrology [address] [place] [address] Aliyah Lacey MD 200 [facility] [place] [address] 08/05/2023 1:00 PM EDT Nurse Only Ancillary [address] [place] [address] [place], Nurse [address] [place] [address] 09/20/2023 8:00 AM EDT Laboratory Lab Mobile Phlebotomy [facility] [address] [place] [address] [facility] Mobile Home Draw [address] [place] [address] 09/24/2023 11:30 AM EDT Office Visit Nephrology, [facility] 200 [facility] [place] [address] Kary Pena PA-C 200 [facility] [place] [address] 12/20/2023 8:00 AM EDT Laboratory Lab Mobile Phlebotomy [facility] [address] [place] [address] [facility] Mobile Home Draw [address] [place] [address] 03/27/2024 8:00 AM EST Laboratory Lab Mobile Phlebotomy [facility] [address] [place] [address] [facility] Mobile Home Draw [address] [place] [address] 06/09/2024 1:30 PM EDT Office Visit Allergy/Immunology [facility] 200 [facility] [place] [address] Rae Ramirez PA-C [address] [place] [address] Scheduled Procedures Name Priority Associated Diagnoses Date/Ti me COLONOSCOPY FLEXIBLE PROXIMAL DIAGNOSTIC Recall Screen for colon cancer Health Maintenance Due Date Last Done Comments Alpha-1 Antitrypsin 07/29/1971 *COPD SEVERITY VERIFIED BY PFT 08/24/2021 COLONOSCOPY-EVERY 3 YRS AGES 18-100 02/23/2023 02/24/2020, 02/24/2020, 07/16/2013, Additional history exists Diabetic Eye Exam 07/31/2023 07/30/2022, , 12/27/2020, Additional history exists Diabetic Foot Exam 07/31/2023 07/30/2022, 0 09/02/2019, 08/29/2018, Additional history exists HbA1c 10/25/2023 04/24/2023, 11/18, 05/30/2022, Additional history exists Mammogram 11/16/2023 11/15/2022, 10/20, 07/03/2021, Additional history exists GFR 12/12/2023 06/12/2023, 04/18, 04/29/2023, Additional history exists CKD PHOS USE SMARTSET 28589 03/21/2024 02/0 02/2023, 12/19/2022, 11/28/2022, Additional history exists Albumin/Creatinine Ratio 05/06/2024 024, 12/03/2022, 02/05/2022, Additional history exists CKD HGB USE SMARTSET 14298 05/06/202405/06, 03/06/2023, 03/06/2023, Additional history exists O2 [...] this encounter Medical Devices Implanted Type Area Carton Packaging Machine Operator Device Identifier Shelf Expiration Date Model / Serial / Lot False Pass Suture Biocomposite - Sn/A - [id number] Implanted:Qty: 2 on 12/13/2021 by Moris Jimenez, DO at OR [facility] Left: Leg Lower [employer] 07/18/2024 [id number] / N/A / [id number] Vitoss Bbtrauma Foam Pack - [id number] - [id number] Implanted:Qty: 1 on 12/13/2021 by Moris Jimenez, DO at OR [facility] Left: Leg Lower MICHA : TRAUMA 01/15/2022 / [id number] / [id number] documented as of this encounter Advance Directives Latest Code Status on File Code Status Date Activated Date Inactivated Comments Full Code 12/12/2021 7:18 PM 12/20/2021 6:08 PM This order reflects the patients wishes and were consensually agreed upon. Question Answer Comments Discussion of Advance Directives occurred with: Patient Care Teams It Application Administrator Relationship Specialty Start Date End Date Shara Ray MD [address] [place] [address] [place] [phone] PCP - General Family Medicine 03/08/23 documented as of this encounter
--- OUTSIDE RECORDS SUMMARY | 2023-07-10 16:42 | External Medical Summary | Summary of Care ---
Author Name Unknown Organization [facility] Address [address] [place] [address] Phone [phone] Care Team Providers Care Pan Dumper Name Role Phone Shara Ray MD Primary Care Provide r Reason for Visit * Reason Comments eRx-Medication Refill Encounter Details Date Type Department Care Team (Late st Contact Info) Description 06/17/2023 Refill Family Medicine [address] [place] [phone] John Blanco MD [address] [place] [address] [place] [address] Cold sore Allergies Active Allergy Reactions Criticality [...] as of this encounter (statuses as of 06/18/2023) Medications Medication Sig Dispensed Refills Start Date [...] 200 Tablet 1 02/05/2023 4 Active Nystatin 276181 UNIT/ML Mouth/Throat SuspensionIndication s:Thrush Swish and swallow [...] by pulmonary in Mar 2023. 0 Active documented as of this encounter (statuses as of 06/18/2023) Active Problems Problem Noted Date Diagnosed Date Major depressive disorder, recurrent, moderate 0 04/03/2023 Last Assessment & Plan: Mood stable on current dose celexa Other persistent atrial fibrillation 04/03/2023 Last Assessment & Plan: Rate controlled Continue coumadin Atherosclerosis of [place] co ronary artery without angina pectoris 04/03/2023 [...] IM/IV Chest Xray Additional Comments: Followed by plant care worker - Dr. 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 0 05/10/2004 Overview: ICD-10 update of inactive term Rheumatic heart disease 03/05/2002 Old myocardial infarct 01/02/2001 Last Assessment & Plan: Continue Crestor 20 mg daily S/P mitral valve replacement Last Assessment & Plan: Chronic AC coumadin Atherosclerosis of [place] co ronary artery of [place] heart without angina pectoris documented as of this encounter (statuses as of 06/18/2023) Resolved Problems Problem Noted Date Diagnosed Date [...] Overview: Per CKD protocol #1 ORBIT-AF Research Other*[id number] 06/02/2010 04/18/2011 Overview: PROJECT: #[id number], SPONSOR: Aileen, PI: Adolfo De Jesus MD [...] before the encounter can be closed. CONTACT: Robert Ocarlos Huertas, Pit Boss Type 2 diabetes mellitus wit h hemoglobin A1c goal of less than 7.0% 04/24/2010 08/29/2018 Overview: ICD-10 update of inactive term ACTIVE CASE MANAGEMENT Kassie Anthony RN [phone] 05/10/19 10 12/05/2009 ADVANCE DIRECTIVE INFORMATION 05/09/2009 [...] as of this encounter (statuses as of 06/18/2023) Immunizations Name Administration Dates Next Due COVID-19 [...] encounter Miscellaneous Notes * Telephone Encounter - Kendell Ramsey RPh - 06/18/2023 2:41 PM EDTRefused Prescriptions: Disp Refills valACYclovir HCl 1 GM Oral Tablet (Valtrex)4 Tabl*11 Sig: Take2 Tablets by mouth in the morning and 2 Tablets before bedtime. for cold sores.Refused By: KENDELL RAMSEY for Refusal: Duplicate Request documented in this encounter Plan of Treatment Upcoming Encounters Date Type Department Care Team (Late st Contact Info) Description 06/19/2023 7:10 AM EDT Laboratory Lab Mobile Phlebotomy [facility] [address] [place], [place] [id number] [facility], [facility] Draw [address] [place] [address] 06/19/2023 6:00 PM EDT Anticoagulation Pharmacy Call Center [address] [place] [address] Ccps, [facility] 58 60 [facility] [place] [address] 06/20/2023 11:10 AM EDT Scheduled Telephone [facility], [facility] [address] [facility] [place] [address] Vee Santacruz, RDN [address] [facility] [place] [address] 06/20/2023 1:40 PM EDT Office Visit Family Medicine [address] [place] [address] Shara Ray MD [address] [place] [address] [place] [address] 06/21/2023 2:30 PM EDT Office Visit Cardiology, [facility] 132 [facility] [place] [address] Hadley Molina MD 132 [facility] [place] [address] 06/24/2023 11:00 AM EDT Office Visit Hematology/Oncology [facility] [place] [address] [facility] [address] [place] [phone] Bouchra Del Cid CRNP 400 [facility] [place] [address] 07/04/2023 2:40 PM EDT Office Visit Nephrology [address] [place] [address] Aliyah Lacey MD [address] [facility] [place] [address] 07/08/2023 8:30 AM EDT Home Visit [facility], [place] [address] [place] [address] Valentina Laws, RN [address] [place] [address] 08/05/2023 1:00 PM EDT Nurse Only Ancillary [place] [place] [address] [place], Nurse [address] [place] [address] 09/20/2023 8:00 AM EDT Laboratory Lab Mobile Phlebotomy [facility] [address] [place] [address] [facility], [facility] Mobile Home Draw [address] [place] [address] 09/24/2023 11:30 AM EDT Office Visit Nephrology, [facility] [address] [facility] [place] [address] Kary Pena PA-C [address] [facility] [place] [address] 12/20/2023 8:00 AM EDT Laboratory Lab Mobile Phlebotomy [facility] [address] [place] [address] [facility], [facility] Mobile Home Draw [address] [place] [address] 03/27/2024 8:00 AM EST Laboratory Lab Mobile Phlebotomy [facility] [address] [place], [place] [address] [facility], [facility] Mobile Home Draw [address] [place] [address] 06/09/2024 1:30 PM EDT Office Visit Allergy/Immunology [facility] [address] [place] [address] Rae Ramirez PA-C [address] [facility] [place] [address] Scheduled Procedures Name Priority Associated Diagnoses Date/Ti [...] Additional history exists CKD PHOS USE SMARTSET 20228 03/21/2024 02/0 02/2023, 12/19/2022, 11/28/2022, Additional history exists Albumin/Creatinine Ratio 05/06/2024 024, 12/03/2022, 02/05/2022, Additional history exists CKD HGB USE SMARTSET 10705 05/06/202405/06, 03/06/2023, 03/06/2023, Additional history exists O2 [...] this encounter Medical Devices Implanted Type Area Saw Grinder Device Identifier Shelf Expiration Date Model / Serial / Lot [place] Suture Biocomposite - Sn/A - [id number] Implanted:Qty: 2 on 12/13/2021 by Moris Jimenez DO at OR [facility] Left: Leg Lower [employer] 07/18/2024 [id number] / N/A / [id number] Vitoss Bbtrauma Foam Pack - [id number] - [id number] Implanted:Qty: 1 on 12/13/2021 by Moris Jimenez DO at OR [facility] Left: Leg Lower MICHA : TRAUMA 01/15/2022 / [id number] / [id number] documented as of this encounter Visit Diagnoses [...] Advance Directives occurred with: Patient Care Teams Pan Dumper Relationship Specialty Start Date End Date Shara Ray MD [address] [place] [address] [place] [address] PCP - General Family Medicine 03/08/23 documented as of this encounter
--- OUTSIDE RECORDS SUMMARY | 2023-07-10 16:42 | External Medical Summary ---
Author Name Unknown Address Unknown Organization K0G[facility] [address] [place] [address] Laboratory Report Ordering Provider Test Date Status JOLENE CORDERO 06/19/2023 12:30:00 Final Observation Date Value Abnormality Reference (Units ) Status SYNC LEUKOCYTES IN BLOOD BY AUTOMATED COUNT 06/19/2023 12:30:00 6.33 4.00-10.80 (K/uL) Final Segs 06/19/2023 12:30:00 71.0 40.0-75.0 (%) Final Lymphs % 06/19/2023 12:30:00 14.8 Below low normal 18.0-42.0 (%) Final Monos 06/19/2023 12:30:00 9.6 1.0-11.0 (%) Final Eosinophils 06/19/2023 12:30:00 4.3 0.0-6.0 (%) Final Basos 06/19/2023 12:30:00 0.3 0.0-2.0 (%) Final Absolute Segs 06/19/2023 12:30:00 4.49 1.80-7.70 (K/uL) Final Lymphs, absolute 06/19/2023 12:30:00 0.94 Below low normal 1.00-4.80 (K/ul) Final Monos, Abs 06/19/2023 12:30:00 0.61 0.00-1.10 (K/uL) Final Eos, Abs 06/19/2023 12:30:00 0.27 0.00-0.70 (K/uL) Final Basos, Abs 06/19/2023 12:30:00 0.02 0.00-0.20 (K/uL) Final Performing Location [facility] [address] [place] [address]
--- OUTSIDE RECORDS SUMMARY | 2023-07-10 16:42 | External Medical Summary | Summary of Care ---
Author Name Unknown Organization [facility] Address [address] [facility] [place] [address] Phone [phone] Care Team Providers Care Oral Pathologist Name Role Phone Shara Ray MD Primary Care Provide r Reason for Visit * Reason Onset Date Comments [facility]: Maintenance 06/15/2023 Encounter Details Date Type Department Care Team (Late st Contact Info) Description 06/15/2023 8:30 AM EDT Scheduled Telephone [facility], [facility] [address] [place] [address] [facility], Nurse [facility] [address] [place] [address] Allergies Active Allergy Reactions Criticality Noted Date [...] as of this encounter (statuses as of 06/15/2023) Medications Medication Sig Dispensed Refills Start Date [...] 200 Tablet 1 02/05/2023 4 Active Nystatin 740213 UNIT/ML Mouth/Throat SuspensionIndication s:Thrush Swish and swallow [...] as of this encounter (statuses as of 06/15/2023) Active Problems Problem Noted Date Diagnosed Date Major depressive disorder, recurrent, moderate 0 04/03/2023 Last Assessment & Plan: Mood stable on current dose celexa Other persistent atrial fibrillation 04/03/2023 Last Assessment & Plan: Rate controlled Continue coumadin Atherosclerosis of [place] co ronary artery without angina pectoris 04/03/2023 [...] IM/IV Chest Xray Additional Comments: Followed by party chief - Dr. 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 CONTACT: Roberto Carlos Huertas, Cloth Picker Type 2 diabetes mellitus wit h hemoglobin A1c goal of less than 7.0% 04/24/2010 08/29/2018 Overview: ICD-10 update of inactive term ACTIVE CASE MANAGEMENT Kassie Anthony, RN [phone] 05/10/19 10 12/05/2009 ADVANCE DIRECTIVE INFORMATION 05/09/2009 [...] as of this encounter (statuses as of 06/15/2023) Immunizations Name Administration Dates Next Due COVID-19 [...] encounter Miscellaneous Notes * Telephone Encounter - Stef, Lanette Brownlee RN - 06/15/2023 10:29 AM EDT Images from the original note were not included. [facility] Telephonic Nurse Follow-Up Call [facility] Subprogram: Focused Care Management (3-9 months) Follow Up Call Type: Weekend Call 1034:PC to M # Phone picks up , then loud buzzing/unable to leave a message 1036:PC to M # Spoke with patient. Patient identified by full name and date of Acute issue requiring follow-up call: Other: f/u [facility] weights Objective: 06/04/2023 1:41 PM 05/14/2023 2:58 PM 05/09/2023 10:54 AM 05/07/2023 1:23 PM 04/24/2023 10:19 AM VITALS ACROSS ENCOUNTERS BP 128/74 118/54 110/60 121/64 116/52 Pulse 74 72 73 77 72 Weight 66.1 kg 64.2 kg 65.2 kg 64 kg 64.5 kg BMI 32.68 BMI 32.67 kg/m2 31.75 kg/m2 32.22 kg/m2 31.61 kg/m2 31.88 kg/m2 Remote Patient Monitoring: AMC Scale: 140.6 lbs (within range) - 3.2 lbs/overnight Oxygen Needs: NO supplemental oxygen needs identified DME Needs: NO DME needs identified Medications: Current DTP: Avoid excessive fluid intake and avoid salty, processed food Weigh daily Other: instructed by cardiology to take a 1/2 dose(of 5 mg tablet) of metolazone 06/14/23 & can take prn every 10 days Subjective: Condition Status: Symptoms resolved and back to baseline Current Concerns: Reports no SOB, swelling improved No acute concerns Following HH diet w/< 2 GM NA,, < 2 L fluid restriction/day Will continue to weigh daily & reach out w/any concerns Next [facility] visit - 07/08/23 Disposition: Issue resolved. All appropriate follow up scheduled. Future Visits Scheduled: Future Appointments-next 60 days Date/Time Provider Specialty Dept Phone 06/19/2023 7:10 AM [facility]v, [facility] Mobile Home Draw Laboratory Processing [phone] 06/19/2023 6:00 PM [facility] [phone] 06/20/2023 11:10 AM Vee Santacruz RDN [facility] [phone] 06/20/2023 1:40 PM (Arrive by 1:25 PM) Shara Ray MD Family Medicine [phone] 06/21/2023 2:30 PM (Arrive by 2:15 PM) Hadley Molina MD Cardiology [phone] 06/24/2023 11:00 AM (Arrive by 10:45 AM) Bouchra Del Cid CRNP Hematology Oncology [phone] 07/04/2023 2:40 PM (Arrive by 2:25 PM) Aliyah Lacey MD Nephrology [phone] 07/08/2023 8:30 AM Valentina Laws RN [facility] [phone] 08/05/2023 1:00 PM Andriy Nurse [facility] Ancillary [phone] 09/20/2023 8:00 AM Gm, [facility] Mobile Home Draw Laboratory Processing [phone] 09/24/2023 11:30 AM (Arrive by 11:15 AM) Kary Pena PA-C Nephrology [phone] 12/20/2023 8:00 AM [facility], [facility] Mobile Home Draw Laboratory Processing [phone] 03/27/2024 8:00 AM [facility], [facility] Mobile Home Draw Laboratory Processing [phone] 06/09/2024 1:30 PM (Arrive by 1:15 PM) Rae Ramirez PA-C Allergy and Immunology [phone] Heidy Finch RN [facility] Stock Crane Operator/ [place] Toll Free Number: documented in this encounter Plan of Treatment Upcoming Encounters Date Type Department Care Team (Late st Contact Info) Description 06/19/2023 7:10 AM EDT Laboratory Lab Mobile Phlebotomy [facility] [address] [facility] [place] [address] [facility], [facility] Mobile [facility] [address] [facility] [address] 06/19/2023 6:00 PM EDT Anticoagulation Pharmacy Call Center [address] [place] [address] Ccps, [facility] 58 60 [facility] [place] [address] 06/20/2023 11:10 AM EDT Scheduled Telephone [facility], [facility] [address] [facility] [place] [address] Vee Santacruz RDN [address] [place] [address] 06/20/2023 1:40 PM EDT Office Visit [address] [address] Shara Ray MD [address] [place] [address] [place] [address] 06/21/2023 2:30 PM EDT Office Visit Cardiology, [facility] 132 [facility] [place] [address] Hadley Molina MD 132 [place] [address] 06/24/2023 11:00 AM EDT Office Visit Hematology/Oncology [facility] [address] [place] [address] Bouchra Del Cid CRNP 400 [facility] [place] [address] 07/04/2023 2:40 PM EDT Office Visit Nephrology [address] [place] [address] Aliyah Lacey MD 200 [facility] [place] [address] 07/08/2023 8:30 AM EDT Home Visit [facility] [place], [facility] 132 [facility] [place] [address] Valentina Laws RN 132 [place] [address] 08/05/2023 1:00 PM EDT Nurse Only Ancillary [address] [place] [address] [place], Nurse [address] [place] [address] 09/20/2023 8:00 AM EDT Laboratory Lab Mobile Phlebotomy [facility] [address] [place] [address] [facility], [facility] Mobile Home Draw [address] [place] [address] 09/24/2023 11:30 AM EDT Office Visit Nephrology, [facility] [address] [facility] [address] [place] [address] Kary Pena PA-C 200 [facility] [place] [address] 12/20/2023 8:00 AM EDT Laboratory Lab Mobile Phlebotomy [facility] [address] [place] [address] Gm, [facility] Mobile Home Draw [address] [place] [address] 03/27/2024 8:00 AM EST Laboratory Lab Mobile Phlebotomy [facility] [address] [place] [address] [facility], [facility] Mobile Home Draw [address] [place] [address] 06/09/2024 1:30 PM EDT Office Visit Allergy/Immunology [facility] [place] [address] [facility] [address] [place] [address] Rae Ramirez PA-C 200 [facility] [place] [address] Scheduled Procedures Name Priority Associated Diagnoses Date/Ti [...] Additional history exists CKD PHOS USE SMARTSET 06809 03/21/2024 02/0 02/2023, 12/19/2022, 11/28/2022, Additional history exists Albumin/Creatinine Ratio 05/06/2024 024, 12/03/2022, 02/05/2022, Additional history exists CKD HGB USE SMARTSET 10529 05/06/202405/06, 03/06/2023, 03/06/2023, Additional history exists O2 [...] this encounter Medical Devices Implanted Type Area Car Parker Device Identifier Shelf Expiration Date Model / Serial / Lot [place] Suture Biocomposite - Sn/A - [id number] Implanted:Qty: 2 on 12/13/2021 by Moris Jimenez, DO at OR [facility] Left: Leg Lower [employer] 07/18/2024 [id number] / N/A / [id number] Vitoss Bbtrauma Foam Pack - [id number] - [id number] Implanted:Qty: 1 on 12/13/2021 by Moris Jimenez, DO at OR [facility] Left: Leg Lower MICHA : TRAUMA 01/15/[id number] / [id number] / [id number] documented as of this encounter Advance Directives Latest Code Status on File Code Status Date Activated Date Inactivated Comments Full Code 12/12/2021 7:18 PM 12/20/2021 6:08 PM This order reflects the patients wishes and were consensually agreed upon. Question Answer Comments Discussion of Advance Directives occurred with: Patient Care Teams Oral Pathologist Relationship Specialty Start Date End Date Shara Ray MD [address] [place] [address] [place] [address] PCP - General Family Medicine 03/08/23 documented as of this encounter
--- OUTSIDE RECORDS SUMMARY | 2023-07-10 16:42 | External Medical Summary ---
Author Name Unknown Address Unknown Organization K01:[facility] - [address] [place] [address] Laboratory Report Ordering Provider Test Date Status JOLENE CORDERO 06/19/2023 12:30:00 Final Observation Date Value Abnormality Reference (Units ) Status Iron 06/19/2023 12:30:00 50 33-151 (ug /dL) Final Iron-binding capacity 06/19/2023 12:30:00 340 250-425 (ug/dL) Final Transferrin Sat % 06/19/2023 12:30:00 15 15 -55 (%) Final Performing Location [facility] - [address] [place] [address]
--- OUTSIDE RECORDS SUMMARY | 2023-07-10 16:43 | External Medical Summary | Summary of Care ---
Author Name Unknown Organization [facility] Address [address] [facility] [place] [address] Phone [phone] Care Team Providers Care Custom Feed Mill Operator Name Role Phone Shara Ray MD Primary Care Provide r Reason for Visit * Reason Comments Dosage Adjustment Via Phone (anticoag Cl inic) Encounter Details Date Type Department Care Team (Latest Contact Info) Description 06/13/2023 6:00 AM EDT Anticoagulation Pharmacy Call Center [address] [place] [address] [facility] [address] [place] [address] [facility] current use of anticoagulant therapy*; History of [...] as of this encounter (statuses as of 06/13/2023) Medications Medication Sig Dispensed Refills Start Date [...] 200 Tablet 1 02/05/2023 4 Active Nystatin 795847 UNIT/ML Mouth/Throat SuspensionIndication s:Thrush Swish and swallow [...] as of this encounter (statuses as of 06/13/2023) Active Problems Problem Noted Date Diagnosed Date Major depressive disorder, recurrent, moderate 0 04/03/2023 Last Assessment & Plan: Mood stable on current dose celexa Other persistent atrial fibrillation 04/03/2023 Last Assessment & Plan: Rate controlled Continue coumadin Atherosclerosis of [place] co ronary artery without angina pectoris 04/03/2023 [...] IM/IV Chest Xray Additional Comments: Followed by duster tender - Dr. 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 0 05/10/2004 Overview: ICD-10 update of inactive term Rheumatic heart disease 03/05/2002 Old myocardial infarct 01/02/2001 Last Assessment & Plan: Continue Crestor 20 mg daily S/P mitral valve replacement Last Assessment & Plan: Chronic AC coumadin Atherosclerosis of [place] co ronary artery of [place] heart without angina pectoris documented as of this encounter (statuses as of 06/13/2023) Resolved Problems Problem Noted Date Diagnosed Date [...] Overview: Per CKD protocol #1 ORBIT-AF Research Other*[id number] 06/02/2010 04/18/2011 Overview: PROJECT: #[id number], SPONSOR: Geovanna[employer]Geovanna, PI: Adolfo De Jesus MD [...] can be closed. CONTACT: Roberto Carlos Huertas, Plater Barrel Type 2 diabetes mellitus wit h hemoglobin A1c goal of less than 7.0% 04/24/2010 08/29/2018 Overview: ICD-10 update of inactive term ACTIVE CASE MANAGEMENT Kassie Anthony, RN [phone] 05/10/19 10 12/05/2009 ADVANCE DIRECTIVE INFORMATION 05/09/2009 [...] as of this encounter (statuses as of 06/13/2023) Immunizations Name Administration Dates Next Due COVID-19 [...] of this encounter Progress Notes * Kirby Gates, [facility] - 06/13/2023 10:43 AM EDT Images from the original note were not included. Medication Therapy Disease Management - Anticoagulation Patient: Abdi Bowling | : 1955 Subjective Contacts Type Contact Phone/Fax 06/13/2023 10:51 AM EDT Phone (Outgoing) Abdi Bowling (Self) [phone] (M) Spoke to Patient Patient-Reported Symptoms: Patient Findings Positives: Change in health (has some fluid in legs and weight is up) Negatives: Signs/symptoms of thrombosis, Signs/symptoms of bleeding, Change in alcohol use, Change in activity, Upcoming invasive procedure, Missed doses, Extra doses, Change in medications, Change in diet/appetite, Bruising Objective Current Warfarin Dose As of 06/13/2023 Warfarin maintenance plan: 6.25 mg (2.5 mg x 2.5) every Mon; 5 mg (2.5 mg x 2) all other days INR Result As of 06/13/2023 INR goal: 3.0-3.5 INR used for dosin.8 (06/12/2023) Assessment & Plan Warfarin Plan As of 06/13/2023 Full warfarin instructions: 06/12: 7.5 mg; Then increase to 7.5 mg every Sat, Sat; 5 mg all other days Next INR check: 06/19/2023 Repeat PT/INR in 1 week(s) with other labs with [facility] Weekly dose: increased Additional Dosing Information: Description GML WedFri, prefers Wed ([facility], [facility], or [facility]) Please also send myG Kirby Gates RPh Clinical Pharmacist 06/13/2023, 10:44 AM documented in this encounter Plan of Treatment Upcoming Encounters Date Type Department Care Team (Late st Contact Info) Description 06/19/2023 6:00 PM EDT Anticoagulation Pharmacy Call Center [address] [facility] [place] [address] [facility], [employer] 58 60 [facility] [place] [address] 06/20/2023 11:10 AM EDT Scheduled Telephone [facility], [facility] [address] [facility] [place] [address] Vee Santacruz, RDN [address] [facility] [place] [address] 06/20/2023 1:40 PM EDT Office Visit Family Medicine [address] [place] [phone] Shara Ray MD [address] [place] [address] [place] [address] 06/21/2023 8:00 AM EDT Laboratory Lab Mobile Phlebotomy [facility] [address] [place] [address] [facility], [facility] Mobile Home Draw [address] [place], [place] [address] 06/21/2023 8:30 AM EDT Home Visit [facility] [place], [facility] [address] [facility] [place] [address] Valentina Laws RN [address] [place] [address] 06/21/2023 2:30 PM EDT Office Visit Cardiology, [facility] 132 [facility] [place] [address] Hadley Molina MD 132 [facility] [place] [address] 06/24/2023 11:00 AM EDT Office Visit Hematology/Oncology [facility] 200 [facility] [place] [address] Bouchra Del Cid CRNP 400 [place] [address] 07/04/2023 2:40 PM EDT Office Visit Nephrology [address] [place] [address] LaceyAliyah castillo MD 200 [facility] [place] [address] 08/05/2023 1:00 PM EDT Nurse Only Ancillary [address] [place] [address] [place], Nurse [address] [place] [address] 09/20/2023 8:00 AM EDT Laboratory Lab Mobile Phlebotomy [facility] [address] [place] [address] [facility], [facility] Mobile Home Draw [address] [place], [place] [address] 09/24/2023 11:30 AM EDT Office Visit Nephrology, [facility] [address] [place] [address] Kary Pena PA-C 200 [facility] [place] [address] 12/20/2023 8:00 AM EDT Laboratory Lab Mobile Phlebotomy [facility] [address] [place] [address] [facility], [facility] Mobile Home Draw [address] [place] [address] 03/27/2024 8:00 AM EST Laboratory Lab Mobile Phlebotomy [facility] [address] [place] [address] [facility], [facility] Mobile Home Draw [address] [place] [address] 06/09/2024 1:30 PM EDT Office Visit Allergy/Immunology [employer] [address] [address] [address] Rae Ramirez PA-C 200 [facility] [place] [address] Scheduled Procedures Name Priority Associated Diagnoses Date/Ti [...] Additional history exists CKD PHOS USE SMARTSET 37187 03/21/2024 02/0 02/2023, 12/19/2022, 11/28/2022, Additional history exists Albumin/Creatinine Ratio 05/06/2024 024, 12/03/2022, 02/05/2022, Additional history exists CKD HGB USE SMARTSET 95499 05/06/202405/06, 03/06/2023, 03/06/2023, Additional history exists O2 [...] this encounter Medical Devices Implanted Type Area Pharmaceutical Sales Device Identifier Shelf Expiration Date Model / Serial / Lot [place] Suture Biocomposite - Sn/A - [id number] Implanted:Qty: 2 on 12/13/2021 by Moris Jimenez, DO at OR [facility] Left: Leg Lower [employer] 07/18/2024 [id number] / N/A / [id number] Vitoss Bbtrauma Foam Pack - [id number] - [id number] Implanted:Qty: 1 on 12/13/2021 by Moris Jimenez DO at OR [facility] Left: Leg Lower MICHA : TRAUMA 01/15/2022 [id number] / [id number] / [id number] documented as of this encounter Visit Diagnoses Diagnosis [facility] current use of anticoagulant therapy- Primary History [...] Advance Directives occurred with: Patient Care Teams Custom Feed Mill Operator Relationship Specialty Start Date End Date Shara Ray MD [address] [place] [address] [place] [address] PCP - General Family Medicine 03/08/23 documented as of this encounter
--- OUTSIDE RECORDS SUMMARY | 2023-07-10 16:43 | External Medical Summary | Summary of Care ---
Author Name Unknown Organization [facility] Address [address] [facility] [place] [address] Phone [phone] Care Team Providers Care Furnace Operator Name Role Phone Shara Ray MD Primary Care Provide r Reason for Visit * Reason Onset Date Comments Test Results 06/13/2023 Encounter Details Date Type Department Care Team (Late st Contact Info) Description 06/13/2023 Telephone Cardiology, [facility] [address] [place] [address] Hadley Molina MD [address] [place] [address] Test Results Allergies Active Allergy Reactions Criticality [...] 200 Tablet 1 02/05/2023 4 Active Nystatin 543542 UNIT/ML Mouth/Throat SuspensionIndication s:Thrush Swish and swallow [...] Plan: Rate controlled Continue coumadin Atherosclerosis of [place] co ronary artery without angina pectoris 04/03/2023 [...] IM/IV Chest Xray Additional Comments: Followed by service engine repairer - Dr. Rashel Sales [facility] Closed nondisplaced fracture of left tibial tuberosity with routine healing 12/12/2021 Mild protein-calorie malnutrition 12/05/2021 Controlled substance agreement signed 12/05/2021 Hematoma of leg, left, subsequent encounter 09/2021 Overview: [facility] ER ulstrasound shows hematoma calf, [...] in the Comments) Remote Patient Monitoring Vendor: [facility] Device(s): Connected Scale Self - Management Plan [...] & Plan: Chronic AC coumadin Atherosclerosis of [place] co ronary artery of [place] heart without angina pectoris documented as of [...] Overview: Per CKD protocol #1 ORBIT-AF Research Other*[id number] 06/02/2010 04/18/2011 Overview: PROJECT: #[id number], SPONSOR: Aileen, PI: Adolfo De Jesus MD [...] can be closed. CONTACT: Roberto Carlos Huertas, Quilt Sewer Type 2 diabetes mellitus wit h hemoglobin [...] Telephone Encounter - Bouchra Peres CMA - 06/13/2023 12:52 PM EDT ----- Message from Hadley Molina MD sent at 06/13/2023 8:43 AM EDT ----- Stable documented in this encounter Plan of Treatment Upcoming Encounters Date Type Department Care Team (Late st Contact Info) Description 06/19/2023 7:10 AM EDT Laboratory Lab Mobile Phlebotomy [facility] [address] [place] [address] [facility] Mobile Home Draw [address] [place] [address] 06/19/2023 6:00 PM EDT Anticoagulation Pharmacy Call Center WB [address] [place] [address] [facility] 58 60 [facility] [place] [address] 06/20/2023 11:10 AM EDT Scheduled Telephone [facility], [facility] 1000 [address] [facility] [place] [address] Vee Santacruz, KOSTAN 1000 [address] [facility] [place] [address] 06/20/2023 1:40 PM EDT Office Visit Family Medicine [address] [place] [phone] Shara Ray MD [address] [place] [address] [place] [address] 06/21/2023 8:30 AM EDT [facility] Visit [facility], [facility] 132 [facility] [place] [address] Valentina Laws RN 132 [facility] [place] [address] 06/21/2023 2:30 PM EDT Office Visit Cardiology, [facility] 132 [facility] [place] [address] Hadley Molina MD 132 [facility] [place] [address] 06/24/2023 11:00 AM EDT Office Visit Hematology/Oncology [facility] 200 [facility] [place] [phone] Bouchra Del Cid CRNP 400 [facility] [place] [address] 07/04/2023 2:40 PM EDT Office Visit Nephrology [address] [place] [address] Aliyah Lacey MD 200 [facility] [place] [address] 08/05/2023 1:00 PM EDT Nurse Only Ancillary Tena Dunbar[address] [place] [address] Andriy, Nurse [address] [place] [address] 09/20/2023 8:00 AM EDT Laboratory Lab Mobile Phlebotomy [facility] [address] [place] [address] [facility], [facility] Mobile Home Draw [address] [place] [address] 09/24/2023 11:30 AM EDT Office Visit Nephrology, [facility] 200 [facility] [place] [address] Kary Pena PA-C 200 [facility] [place] [address] 12/20/2023 8:00 AM EDT Laboratory Lab Mobile Phlebotomy [facility] [address] [place] [address] [facility], [facility] Draw [address] [place] [address] 03/27/2024 8:00 AM EST Laboratory Lab Mobile Phlebotomy [facility] [address] [place] [address] [facility], [facility] Mobile Home Draw [address] [place] [address] 06/09/2024 1:30 PM EDT Office Visit Allergy/Immunology [place] 200 [facility] [place] [address] Rae Ramirez PA-C 200 [facility] [place] [address] Scheduled Procedures Name Priority Associated Diagnoses Date/Ti [...] Additional history exists CKD PHOS USE SMARTSET 49285 03/21/2024 02/0 02/2023, 12/19/2022, 11/28/2022, Additional history exists Albumin/Creatinine Ratio 05/06/2024 024, 12/03/2022, 02/05/2022, Additional history exists CKD HGB USE SMARTSET 96135 05/06/202405/06, 03/06/2023, 03/06/2023, Additional history exists O2 [...] this encounter Medical Devices Implanted Type Area Expediter Service Order Device Identifier Shelf Expiration Date Model / Serial / Lot [place] Suture Biocomposite - Sn/A - [id number] Implanted:Qty: 2 on 12/13/2021 by Moris Jimenez, DO at OR [facility] Left: Leg Lower [employer] 07/18/2024 [id number] / N/A / [id number] Vitoss Bbtrauma Foam Pack - [id number] - [id number] Implanted:Qty: 1 on 12/13/2021 by Moris Jimenez, DO at OR [facility] Left: Leg Lower MICHA : TRAUMA 01/15/2022 / [id number] / [id number] documented as of this encounter Advance Directives Latest Code Status on File Code Status Date Activated Date Inactivated Comments Full Code 12/12/2021 7:18 PM 12/20/2021 6:08 PM This order reflects the patients wishes and were consensually agreed upon. Question Answer Comments Discussion of Advance Directives occurred with: Patient Care Teams Furnace Operator Relationship Specialty Start Date End Date Shara Ray MD [address] [place] [address] [place] [phone] PCP - General Family Medicine 03/08/23 documented as of this encounter
--- OUTSIDE RECORDS SUMMARY | 2023-07-10 16:44 | External Medical Summary | Summary of Care ---
Author Name Unknown Organization [facility] Address [address] [facility] [place] [address] Phone [phone] Care Team Providers Care Tax Collection Coordinator Name Role Phone Shara Ray MD Primary Care Provide r Reason for Visit * Reason Comments Dosage Adjustment Via Phone (anticoag Cl inic) Encounter Details Date Type Department Care Team (Latest Contact Info) Description 06/12/2023 6:00 PM EDT Anticoagulation Pharmacy Call Center [address] [place] [address] [facility] [address] [place] [address] [facility] current use of anticoagulant therapy*; History [...] as of this encounter (statuses as of 06/12/2023) Medications Medication Sig Dispensed Refills Start Date [...] 200 Tablet 1 02/05/2023 4 Active Nystatin 400729 UNIT/ML Mouth/Throat SuspensionIndication s:Thrush Swish and swallow [...] as of this encounter (statuses as of 06/12/2023) Active Problems Problem Noted Date Diagnosed Date Major depressive disorder, recurrent, moderate 0 04/03/2023 Last Assessment & Plan: Mood stable on current dose celexa Other persistent atrial fibrillation 04/03/2023 Last Assessment & Plan: Rate controlled Continue coumadin Atherosclerosis of [place] ronary artery without angina pectoris 04/03/2023 [...] IM/IV Chest Xray Additional Comments: Followed by sheet tester - Dr. 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 0 05/10/2004 Overview: ICD-10 update of inactive term Rheumatic heart disease 03/05/2002 Old myocardial infarct 01/02/2001 Last Assessment & Plan: Continue Crestor 20 mg daily S/P mitral valve replacement Last Assessment & Plan: Chronic AC coumadin Atherosclerosis of [place] ronary artery of [place] heart without angina pectoris documented as of this encounter (statuses as of 06/12/2023) Resolved Problems Problem Noted Date Diagnosed Date [...] Overview: Per CKD protocol #1 ORBIT-AF Research Other*[id number] 06/02/2010 04/18/2011 Overview: PROJECT: #[id number], SPONSOR: Geovanna[employer]ov[employer], PI: Adolfo De Jesus MD [...] can be closed. CONTACT: Roberto Carlos Huertas, Rug Clipper Type 2 diabetes mellitus wit h hemoglobin A1c goal of less than 7.0% 04/24/2010 08/29/2018 Overview: ICD-10 update of inactive term ACTIVE CASE MANAGEMENT Kassie Anthony, RN [phone] 05/10/19 10 12/05/2009 ADVANCE DIRECTIVE INFORMATION 05/09/2009 [...] as of this encounter (statuses as of 06/12/2023) Immunizations Name Administration Dates Next Due COVID-19 [...] Progress Notes * Kirby Gates RPh - 06/12/2023 4:39 PM EDT INR today still in process. Spoke with pt and instructed to take normal dose of coumadin 5mg tonight. Will follow up tomorrow for results. Kirby Gates, Pharm.D. Clinical Pharmacist [facility] ([facility]PS) (formerly Telepharmacy) 06/12/2023, 4:39 PM [phone] documented in this encounter Plan of Treatment Upcoming Encounters Date Type Department Care Team (Late st Contact Info) Description 06/13/2023 6:00 AM EDT Anticoagulation Pharmacy Call Center WB [address] [place] [address] [facility], [facility] [address] [facility] [place] [address] 06/20/2023 11:10 AM EDT Scheduled Telephone [facility], [facility] [address] [facility] [place] [address] Vee Santacruz, KOSTAN [address] [facility] [place] [address] 06/20/2023 1:40 PM EDT Office Visit Family Medicine [address] [place] [address] Shara Ray MD [address] [place] [address] [place] [address] 06/21/2023 8:00 AM EDT Laboratory Lab Mobile Phlebotomy [facility] [address] [place] [address] [facility], [facility] Mobile Home Draw [address] [place] [address] 06/21/2023 8:30 AM EDT [facility], [facility] [place] [address] Valentina Laws RN 132 [facility] [place] [address] 06/21/2023 2:30 PM EDT Office Visit Cardiology, [facility] 132 [facility] [place] [address] Hadley Molina MD 132 [facility] [place] [address] 06/24/2023 11:00 AM EDT Office Visit [facility]ematology/Oncology [facility] 200 [place] [phone] Bouchra Del Cid CRNP 400 [facility] [place] [address] 07/04/2023 2:40 PM EDT Office Visit Nephrology [address] [place] [address] Aliyah Lacey MD [address] [place] [address] 08/05/2023 1:00 PM EDT Nurse Only Ancillary [address] [place] [address] [place], Nurse [address] [place] [address] 09/20/2023 8:00 AM EDT Laboratory Lab Mobile Phlebotomy [facility] [address] [place] [address] [facility], [facility] Mobile Home Draw [address] [place] [address] 09/24/2023 11:30 AM EDT Office Visit Nephrology, [facility] [place] [address] [place] [address] Kary Pena PA-C [address] [place] [address] 12/20/2023 8:00 AM EDT Laboratory Lab Mobile Phlebotomy [facility] [address] [place], [place] [address] [facility], [facility] Mobile Home Draw [address] [place] [address] 03/27/2024 8:00 AM EST Laboratory Lab Mobile Phlebotomy [facility] [address] [place] [address] [facility], [facility] Mobile Home Draw [address] [place] [address] 06/09/2024 1:30 PM EDT Office Visit Allergy/Immunology [place] [address] [place] [address] Rae Ramirez PA-C [address] [place] [address] Scheduled Procedures Name Priority Associated Diagnoses Date/Ti [...] 10/25/2023 04/24/2023, 11/18, 05/30/2022, Additional history exists GFR 11/07/2023 05/07/2023, 04/18, 04/24/2023, Additional history exists Mammogram 11/16/2023 11/15/2022, 10/20, 07/03/2021, Additional history exists CKD PHOS USE SMARTSET 82107 03/21/2024 02/0 02/2023, 12/19/2022, 11/28/2022, Additional history exists Albumin/Creatinine Ratio 05/06/2024 024, 12/03/2022, 02/05/2022, Additional history exists CKD HGB USE SMARTSET 20912 05/06/202405/06, 03/06/2023, 03/06/2023, Additional history exists O2 [...] this encounter Medical Devices Implanted Type Area Air Sealing Technician Device Identifier Shelf Expiration Date Model / Serial / Lot [place] Suture Biocomposite - Sn/A - [id number] Implanted:Qty: 2 on 12/13/2021 by Moris Jimenez, DO at OR [facility] Left: Leg Lower [employer] 07/18/2024 AR-[id number] / N/A / [id number] Vitoss Bbtrauma Foam Pack - [id number] - [id number] Implanted:Qty: 1 on 12/13/2021 by Moris Jimenez, DO at OR [facility] Left: Leg Lower MICHA : TRAUMA 01/15/2022 / [id number] / [id number] documented as of this encounter Visit Diagnoses [...] Directives occurred with: Patient Care Teams Tax Collection Coordinator Relationship Specialty Start Date End Date Shara Ray MD [address] [place] [address] [place] [address] PCP - General Family Medicine 03/08/23 documented as of this encounter
--- OUTSIDE RECORDS SUMMARY | 2023-07-10 16:44 | External Medical Summary | Summary of Care ---
Author Name Unknown Organization [facility] Address [address] [facility] [place] [address] Phone [phone] Care Team Providers Care Natural Resources Extension Educator Name Role Phone Shara Ray MD Primary Care Provide r Reason for Visit * Reason Comments Outpatient Testing Encounter Details Date Type Department Care Team (Late st Contact Info) Description 06/12/2023 10:00 AM EDT Laboratory Laboratory [address] [place] [phone] [place] [address] Chronic diastolic congestive heart failure (HCC); Permanent atrial fibrillation (HCC); S/P mitral valve replacement; History of TIA (transient ischemic attack); Anticoagulation management encounter Allergies Active Allergy Reactions Criticality Noted Date [...] 200 Tablet 1 02/05/2023 4 Active Nystatin 515786 UNIT/ML Mouth/Throat SuspensionIndication s:Thrush Swish and swallow [...] Plan: Rate controlled Continue coumadin Atherosclerosis of [place] co ronary artery without angina pectoris 04/03/2023 [...] IM/IV Chest Xray Additional Comments: Followed by food preparer - Dr. Rashel Sales [facility] Closed nondisplaced fracture of left tibial tuberosity with routine healing 12/12/2021 Mild protein-calorie malnutrition 12/05/2021 Controlled substance agreement signed 12/05/2021 Hematoma of leg, left, subsequent encounter 09/2021 Overview: [facility] ER ulstrasound shows hematoma calf, INR 4.2, [...] the Comments) Remote Patient Monitoring Vendor: [facility] Device(s): Connected Scale Self - Management Plan [...] & Plan: Symptoms well controlled on omeprazole senior care current use of anticoagulant therapy 0 05/10/2004 Overview: ICD-10 update of inactive term Rheumatic heart disease 03/05/2002 Old myocardial infarct 01/02/2001 Last Assessment & Plan: Continue Crestor 20 mg daily S/P mitral valve replacement Last Assessment & Plan: Chronic AC coumadin Atherosclerosis of [place] co ronary artery of [place] heart without angina pectoris documented as of [...] Overview: Per CKD protocol #1 ORBIT-AF Research Other*[id number] 06/02/2010 04/18/2011 Overview: PROJECT: #[id number], SPONSOR: Aileen, PI: Adolfo De Jesus MD [...] can be closed. CONTACT: Roberto Carlos Huertas, [employer] Sales Consultant Type 2 diabetes mellitus wit h hemoglobin A1c goal of less than 7.0% 04/24/2010 08/29/2018 Overview: ICD-10 update of inactive term ACTIVE CASE MANAGEMENT Kassie Anthony RN [phone] 05/10/19 10 12/05/2009 ADVANCE DIRECTIVE INFORMATION 05/09/2009 [...] Care Team (Late st Contact Info) Description 06/12/2023 6:00 PM EDT [facility] Call [facility] [address] [facility] [address] [facility], [facility] 58 60 [facility] [place] [address] 06/20/2023 11:10 AM EDT Scheduled Telephone [facility], [facility] [address] [facility] [place] [address] Vee Santacruz, RDN [address] [facility] [place] [address] 06/20/2023 1:40 PM EDT Office Visit Family Medicine [address] [place] [phone] Shara Ray MD [address] [place] [address] [place] [address] 06/21/2023 8:00 AM EDT Laboratory Lab [facility] [address] [place] [address] [facility], [facility] Mobile Home Draw [address] [place] [address] 06/21/2023 8:30 AM EDT Home Visit [facility] [place], [facility] [address] [place] [address] Valentina Laws, RN 132 [facility] [address] 06/21/2023 2:30 PM EDT Office Visit Cardiology, [facility] 132 [place] [address] Hadley Molina MD 132 [place] [address] 06/24/2023 11:00 AM EDT Office Visit Hematology/Oncology [facility] 200 [facility] [place] [address] Bouchra Del Cid CRNP [address] [place] [address] 07/04/2023 2:40 PM EDT Office Visit Nephrology [address] [place] [address] Aliyah Lacey MD 200 [facility] [place] [address] 08/05/2023 1:00 PM EDT Nurse Only Ancillary [address] [place] [address] [place], Nurse [address] [place] [address] 09/20/2023 8:00 AM EDT Laboratory Lab [facility] [address] [place] [address] [facility], [facility] Mobile Home Draw [address] [place] [address] 09/24/2023 11:30 AM EDT Office Visit Nephrology, [facility] 200 [facility] [place] [address] Kary Pean PA-C 200 [facility] [place] [address] 12/20/2023 8:00 AM EDT Laboratory Lab [facility] [address] [place] [address] [facility], [facility] Mobile Home Draw [address] [place] [address] 03/27/2024 8:00 AM EST Laboratory Lab [facility] [address] [place] [address] [facility], [facility] Mobile Home Draw [address] [place] [address] 06/09/2024 1:30 PM EDT Office Visit Allergy/Immunology [facility] [place] 200 [facility] [place] [address] Rae Ramirez PA-C 200 [facility] [place] [address] Pending Results Name Type Priority Associated Diagnoses Date /Time BASIC METABOLIC PANEL Lab Routine Chronic diastolic congestive heart failure (HCC) Permanent atrial fibrillation (HCC) S/P mitral valve replacement 06/12/2023 10:34 AM EDT PT INR Lab Routine History of TIA (transient ischemic attack) S/P mitral valve replacement Permanent atrial fibrillation (HCC) Anticoagulation management encounter 06/12/2023 10:34 AM EDT Scheduled Procedures Name Priority Associated Diagnoses Date/Ti [...] Additional history exists CKD PHOS USE SMARTSET 21847 03/21/2024 02/0 02/2023, 12/19/2022, 11/28/2022, Additional history exists Albumin/Creatinine Ratio 05/06/2024 024, 12/03/2022, 02/05/2022, Additional history exists CKD HGB USE SMARTSET 04043 05/06/202405/06, 03/06/2023, 03/06/2023, Additional history exists O2 [...] this encounter Medical Devices Implanted Type Area Pest Management Supervisor Device Identifier Shelf Expiration Date Model / Serial / Lot [place] Suture Biocomposite - Sn/A - [id number] Implanted:Qty: 2 on 12/13/2021 by Moris Jimenez, DO at OR [facility] Left: Leg Lower [employer] 07/18/2024 [id number] / N/A / [id number] Vitoss Bbtrauma Foam Pack - [id number] - [id number] Implanted:Qty: 1 on 12/13/2021 by Moris Jimenez, DO at OR [facility] Left: Leg Lower MICHA : TRAUMA 01/15/2022 / [id number] / [id number] documented as of this encounter Visit Diagnoses Diagnosis Chronic diastolic congestive heart failure (HCC) Chronic diastolic heart failure Permanent atrial fibrillation (HCC) Atrial fibrillation S/P mitral valve replacement Heart valve replaced by other means History of TIA (transient ischemic attack) Transient ischemic attack (TIA), and cerebral infarction without residual deficits Anticoagulation management encounter Encounter for therapeutic drug monitoring documented in this encounter Advance Directives Latest Code Status on File Code Status Date Activated Date Inactivated Comments Full Code 12/12/2021 7:18 PM 12/20/2021 6:08 PM This order reflects the patients wishes and were consensually agreed upon. Question Answer Comments Discussion of Advance Directives occurred with: Patient Care Teams Natural Resources Extension Educator Relationship Specialty Start Date End Date Shara Ray MD [address] [place] [address] [place] [phone] PCP - General Family Medicine 03/08/23 documented as of this encounter
--- OUTSIDE RECORDS SUMMARY | 2023-07-10 16:45 | External Medical Summary ---
Author Name Unknown Address Unknown Organization K01:LABORATORY [facility] - [address] [facility] [address] [place] [address] Laboratory Report Ordering Provider Test Date Status TOÑA HONG 06/12/2023 10:34:12 Final Observation Date Value Abnormality Reference (Units ) Status BUN 06/12/2023 10:34:12 39 Above high normal 6-20 (mg/dL) Final Creatinine 06/12/2023 10:34:12 1.6 Above high normal 0.5-1.0 (mg/dL) Final Glomerular filtration rate/1.73 sq M.predicted [Volume Rate/Area] in Serum, Plasma or Blood by Creatinine-based formula (CKD-EPI) 06/12/2023 10:34:12 35 Below low normal >=60 (mL/min) Final eGFR is calculated based on the CKD-EPI 2020 equation Sodium 06/12/2023 10:34:12 134 Below low normal 135 -146 (mmol/L) Final Potassium 06/12/2023 10:34:12 4.2 3.5-5.1 (m mol/L) Final Cl 06/12/2023 10:34:12 90 Below low normal 98- 107 (mmol/L) Final CO2 06/12/2023 10:34:12 32 22-32 (mmo l/L) Final Anion gap 06/12/2023 10:34:12 12 7-15 (mmol /L) Final Glucose 06/12/2023 10:34:12 202 Above high normal 70 -120 (mg/dL) Final Calcium 06/12/2023 10:34:12 10.4 Above high normal 8. 4-10.2 (mg/dL) Final Performing Location [facility] - [address] [place] [address]
--- OUTSIDE RECORDS SUMMARY | 2023-07-10 16:45 | External Medical Summary ---
Author Name Unknown Address Unknown Organization K01:LABORATORY [facility] - [address] [place] [address] Laboratory Report Ordering Provider Test Date Status SONIA PANTOJA 06/12/2023 10:34:12 Final Standing order for pt/inr. < br/>Please draw pt/inr every 1 to 4 weeks as requested.
Results to [facility]

Warfarin Therapy
INR: 2.0-3.0 conventional anticoagulation
INR: 2.5-3.5 high intensity anticoagulation Observation Date Value Abnormality Reference (Units ) Status PT 06/12/2023 10:34:12 29.7 Above high normal 11 .6-15.2 (seconds) Final INR 06/12/2023 10:34:12 2.8 Above high normal 0. 8-1.2 Final Performing Location LAB[facility]ATORY [facility] - [address] [place] [facility] [address]
--- OUTSIDE RECORDS SUMMARY | 2023-07-10 16:45 | External Medical Summary | Summary of Care ---
Author Name Unknown Organization [facility] Address [address] [facility] [place] [address] Phone [phone] Care Team Providers Care Toe Puller Name Role Phone Shara Ray MD Primary Care Provide r Reason for Visit * Reason Onset Date Comments Encounter Created in Error 06/11/2023 Encounter Details Date Type Department Care Team (Latest Contact Info) Description 06/11/2023 1:30 PM EDT [facility], [facility] [address] [facility] [place] [address] Vee Santacruz RDN [address] [facility] [place] [address] Canceled (Clinician Appointment Cancel Rescheduled at later date) Allergies Active Allergy Reactions Criticality Noted Date [...] as of this encounter (statuses as of 06/11/2023) Medications Medication Sig Dispensed Refills Start Date [...] 200 Tablet 1 02/05/2023 4 Active Nystatin [id number] UNIT/ML Mouth/Throat SuspensionIndication s:Thrush Swish and swallow [...] as of this encounter (statuses as of 06/11/2023) Active Problems Problem Noted Date Diagnosed Date [...] IM/IV Chest Xray Additional Comments: Followed by back hand - Dr. Rashel Sales [facility] Closed nondisplaced fracture of left tibial [...] Patient Monitoring Vendor: [facility] Device(s): Connected [...] & Plan: Symptoms well controlled on omeprazole long-term current use of anticoagulant therapy 0 05/10/2004 Overview: ICD-10 update of inactive term Rheumatic heart disease 03/05/2002 Old myocardial infarct 01/02/2001 Last Assessment & Plan: Continue Crestor 20 mg daily S/P mitral valve replacement Last Assessment & Plan: Chronic AC coumadin Atherosclerosis of [place] co ronary artery of [place] heart without angina pectoris documented as of this encounter (statuses as of 06/11/2023) Resolved Problems Problem Noted Date Diagnosed Date [...] Overview: Per CKD protocol #1 ORBIT-AF Research Other*[id number] 06/02/2010 04/18/2011 Overview: PROJECT: #[id number], SPONSOR: Aileen, PI: Adolfo D eJesus MD SUMMARY: Observational registry to better understand [...] can be closed. CONTACT: Roberto Carlos Huertas, Hvac Lead Type 2 diabetes mellitus wit h hemoglobin [...] as of this encounter (statuses as of 06/11/2023) Immunizations Name Administration Dates Next Due COVID-19 [...] Description 06/12/2023 10:00 AM EDT Laboratory Laboratory [address] [place] [phone] [address] [place] [address] 06/12/2023 6:00 PM EDT Anticoagulation Pharmacy Call Center [address] [place] [address] [facility], [facility] [address] [place] [address] 06/20/2023 11:10 AM EDT Scheduled Telephone [facility], [facility] [address] [facility] [place] [address] Vee Santacruz, KOSTAN [address] [facility] [place] [address] 06/20/2023 1:40 PM EDT Office Visit Family Medicine [address] [place] [phone] Shraa Ray MD [address] [place] [address] [place] [address] 06/21/2023 8:00 AM EDT Laboratory Lab [facility] [address] [place] [address] [facility] Mobile Home Draw [address] [place] [address] 06/21/2023 8:30 AM EDT Home Visit [facility] [place], [facility] [place] [address] Valentina Laws RN 132 [place] [address] 06/21/2023 2:30 PM EDT Office Visit Cardiology, [facility] 132 [place] [address] Hadley Molina MD 132 [place] [address] 06/24/2023 11:00 AM EDT Office Visit Hematology/Oncology [facility] 200 [facility] [place] [phone] Bouchra Del Cid CRNP 400 [facility] [place] [address] 07/04/2023 2:40 PM EDT Office Visit Nephrology [address] [place] [address] Aliyah Lacey MD 200 [facility] [place] [address] 08/05/2023 1:00 PM EDT Nurse Only Ancillary [place] Dun[address] [place] [address] Mov[place]la[place], Nurse [address] [place] [address] 09/20/2023 8:00 AM EDT Laboratory Lab Mobile [facility] [address] [place] [address] [facility] Mobile Home Draw [address] [place] [address] 09/24/2023 11:30 AM EDT Office Visit Nephrology, [facility] 200 [facility] [place] [address] Kary Pena PA-C 200 [facility] [place] [address] 12/20/2023 8:00 AM EDT Laboratory Lab [facility] [address] [place] [address] [facility] Draw [address] [place] [address] 03/27/2024 8:00 AM EST Laboratory Lab [facility] [address] [place] [address] [facility] Mobile Home Draw [address] [place] [address] 06/09/2024 1:30 PM EDT Office Visit Allergy/Immunology [employer] [address] [place] [address] Rae Ramirez PA-C 200 [facility] [place] [address] Scheduled Procedures Name Priority Associated Diagnoses Date/Ti [...] Additional history exists CKD PHOS USE SMARTSET 62384 03/21/2024 02/0 02/2023, 12/19/2022, 11/28/2022, Additional history exists Albumin/Creatinine Ratio 05/06/2024 024, 12/03/2022, 02/05/2022, Additional history exists CKD HGB USE SMARTSET 94330 05/06/202405/06, 03/06/2023, 03/06/2023, Additional history exists O2 [...] this encounter Medical Devices Implanted Type Area Swing Grinder Device Identifier Shelf Expiration Date Model / Serial / Lot [place] Suture Biocomposite - Sn/A - [id number] Implanted:Qty: 2 on 12/13/2021 by Moris Jimenez, DO at OR [facility] Left: Leg Lower [employer] 07/18/2024 AR-[id number] / N/A / [id number] Vitoss Bbtrauma Foam Pack - [id number] - [id number] Implanted:Qty: 1 on 12/13/2021 by Moris Jimenez, DO at OR [facility] Left: Leg Lower MICHA : TRAUMA 01/15/2022 / [id number] / [id number] documented as of this encounter Advance Directives Latest Code Status on File Code Status Date Activated Date Inactivated Comments Full Code 12/12/2021 7:18 PM 12/20/2021 6:08 PM This order reflects the patients wishes and were consensually agreed upon. Question Answer Comments Discussion of Advance Directives occurred with: Patient Care Teams Toe Puller Relationship Specialty Start Date End Date Shara Ray MD [address] [place] [address] [place] [phone] PCP - General Family Medicine 03/08/23 documented as of this encounter
--- OUTSIDE RECORDS SUMMARY | 2023-07-10 16:46 | External Medical Summary | Summary of Care ---
Author Name Unknown Organization [facility] Address [address] [facility] [place] [address] Phone [phone] Care Team Providers Care Garnisher Name Role Phone Shara Ray MD Primary Care Provide r Reason for Visit * Reason Comments Dosage Adjustment Via Phone (anticoag Cl inic) Encounter Details Date Type Department Care Team (Latest Contact Info) Description 06/07/2023 6:00 PM EDT Anticoagulation Pharmacy Call Center [phone] [place] [address] [facility] [address] [place] [address] [facility] current use of anticoagulant therapy*; History of TIA (transient ischemic attack); S/P mitral valve replacement; Permanent atrial fibrillation (HCC); Anticoagulation management encounter Allergies Active Allergy Reactions [...] as of this encounter (statuses as of 06/07/2023) Medications Medication Sig Dispensed Refills Start Date [...] 200 Tablet 1 02/05/2023 4 Active Nystatin 271736 UNIT/ML Mouth/Throat SuspensionIndication s:Thrush Swish and swallow [...] as of this encounter (statuses as of 06/07/2023) Active Problems Problem Noted Date Diagnosed Date Major depressive disorder, recurrent, moderate 0 04/03/2023 Last Assessment & Plan: Mood stable on current dose celexa Other persistent atrial fibrillation 04/03/2023 Last Assessment & Plan: Rate controlled Continue coumadin Atherosclerosis of [place] co ronary artery without angina pectoris 04/03/2023 [...] IM/IV Chest Xray Additional Comments: Followed by rn neurosurgical - Dr. 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 0 05/10/2004 Overview: ICD-10 update of inactive term Rheumatic heart disease 03/05/2002 Old myocardial infarct 01/02/2001 Last Assessment & Plan: Continue Crestor 20 mg daily S/P mitral valve replacement Last Assessment & Plan: Chronic AC coumadin Atherosclerosis of [place] co ronary artery of wiyot heart without angina pectoris documented as of this encounter (statuses as of 06/07/2023) Resolved Problems Problem Noted Date Diagnosed Date [...] Overview: Per CKD protocol #1 ORBIT-AF Research Other*[id number] 06/02/2010 04/18/2011 Overview: PROJECT: #[id number], SPONSOR: Aileen, PI: Adolfo De Jesus MD [...] can be closed. CONTACT: Roberto Carlos Huertas, Final Armature Tester Type 2 diabetes mellitus wit h [...] as of this encounter (statuses as of 06/07/2023) Immunizations Name Administration Dates Next Due COVID-19 [...] as of this encounter Progress Notes * Kit Gates, [facility] - 06/07/2023 2:33 PM EDT Medication Therapy Disease Management - Anticoagulation Patient: Abdi Bowling | : 1955 Subjective Contacts Type Contact Phone/Fax 06/07/2023 02:37 PM EDT Phone (Outgoing) Abdi Bowling (Self) [phone] (M) spoke with Lucius Patient-Reported Symptoms: Patient Findings Negatives: Signs/symptoms of thrombosis, Signs/symptoms of bleeding, Change in health, Change in alcohol use, Change in activity, Upcoming invasive procedure, Missed doses, Extra doses, Change in medications, Change in diet/appetite, Bruising Objective Current Warfarin Dose As of 06/07/2023 Warfarin maintenance plan: 5 mg (2.5 mg x 2) every day INR Result As of 06/07/2023 INR goal: 3.0-3.5 INR used for dosin.1 (06/07/2023) Assessment & Plan Warfarin Plan As of 06/07/2023 Full warfarin instructions: 6.25 mg every Mon; 5 mg all other days Next INR check: 06/12/2023 Sent myG Repeat PT/INR in 5 day(s) Weekly dose: increased slightly to make sure INR stays therapeutic Additional Dosing Information: Description GML WedFri, prefers Wed ([facility], [facility], or [facility]) Please also send myG Kit Gates RPh Clinical Pharmacist 06/07/2023, 2:34 PM documented in this encounter Miscellaneous Notes * Addendum Note - Kit Gates RPh - 06/07/2023 3:21 PM EDTAddended by: KIT GATES on: 06/07/2023 03:21 PM Modules accepted: Orders documented in this encounter Plan of Treatment Upcoming Encounters Date Type Department Care Team (Late st Contact Info) Description 06/10/2023 12:20 PM EDT Office Visit Family Medicine [address] [place] [phone] Shara Ray MD [address] [place] [address] [place] [address] 06/11/2023 1:30 PM EDT Scheduled Telephone [facility], [facility] [address] [facility] [place] [address] Vee Santacruz RDN [address] [facility] [place] [address] 06/12/2023 6:00 PM EDT Anticoagulation Pharmacy Call Center [address] [place] [address] [facility] [address] [facility] [place] [address] 06/20/2023 5:30 PM EDT Home Visit [facility], [facility] [address] [place] [address] Valentina Laws, RN [address] [facility] [place] [address] 06/21/2023 8:00 AM EDT Laboratory Lab Mobile Phlebotomy [facility] [address] [place] [address] [facility], [facility] Mobile Home Draw [address] [place] [address] 06/21/2023 2:30 PM EDT Office Visit Cardiology, [facility] [address] [facility] [place] [address] Hadley Molina MD 132 [facility] [place] [address] 06/24/2023 11:00 AM EDT Office Visit Hematology/Oncology [facility] [address] [facility] [address] Bouchra Del Cid CRNP [address] [place] [address] 07/04/2023 2:40 PM EDT Office Visit Nephrology [address] [place] [address] Aliyah Lacey MD [address] [place] [address] 08/05/2023 1:00 PM EDT Nurse Only Ancillary [address] [place] [address] [place], Nurse [address] [place] [address] 09/20/2023 8:00 AM EDT Laboratory Lab Mobile Phlebotomy [facility] [address] [place] [address] [facility], [facility] Mobile Home Draw [address] [place] [address] 09/24/2023 11:30 AM EDT Office Visit Nephrology, [facility] [address] [place] [address] Kary Pena PA-C [address] [place] [address] 12/20/2023 8:00 AM EDT Laboratory Lab Mobile Phlebotomy [facility] [address] [place] [address] [facility], [facility] Mobile Home Draw [address] [place] [address] 03/27/2024 8:00 AM EST Laboratory Lab Mobile Phlebotomy [facility] [address] [place] [address] [facility], [facility] Mobile Home Draw [address] [place] [address] 06/09/2024 1:30 PM EDT Office Visit Allergy/Immunology [facility] [place] [address] [facility] [place] [address] Rae Ramirez PA-C [address] [place] [address] Scheduled Orders Name Type Priority Associated Diagnoses Orde r Schedule PT INR Lab Routine History of TIA (transient ischemic attack) S/P mitral valve replacement Permanent atrial fibrillation (HCC) Anticoagulation management encounter Other, Please specify in Comments field for 26 Occurrences starting 06/07/2023 until 06/06/2024 Scheduled Procedures Name Priority Associated Diagnoses Date/Ti me COLONOSCOPY FLEXIBLE PROXIMAL DIAGNOSTIC Recall Screen for colon cancer Health Maintenance Due Date Last Done Comments Alpha-1 Antitrypsin 07/29/1971 *COPD SEVERITY VERIFIED BY PFT 08/24/2021 COLONOSCOPY-EVERY 3 YRS AGES 18-100 02/23/2023 02/24/2020, 02/24/2020, 07/16/2013, Additional history exists TSH 05/31/2023 05/30/2022, 06/18, 06/28/2020, Additional history exists Diabetic Eye Exam 07/31/2023 07/30/2022, , 12/27/2020, Additional history exists Diabetic Foot Exam 07/31/2023 07/30/2022, 0 09/02/2019, 08/29/2018, Additional history exists HbA1c 10/25/2023 04/24/2023, 11/18, 05/30/2022, Additional history exists GFR 11/07/2023 05/07/2023, 04/18, 04/24/2023, Additional history exists Mammogram 11/16/2023 11/15/2022, 10/20, 07/03/2021, Additional history exists CKD PHOS USE SMARTSET 91724 03/21/2024 02/0 02/2023, 12/19/2022, 11/28/2022, Additional history exists Albumin/Creatinine Ratio 05/06/2024 024, 12/03/2022, 02/05/2022, Additional history exists CKD HGB USE SMARTSET 75438 05/06/202405/06, 03/06/2023, 03/06/2023, Additional history exists O2 ASSESSMENT COMPLETED IN PAST YEAR FOR COPD 06/03/2024 06/04/2023 DTaP,Tdap,and Td Vaccines (3 - Td or [...] this encounter Medical Devices Implanted Type Area Skin Former Device Identifier Shelf Expiration Date Model / Serial / Lot [place] Suture Biocomposite - Sn/A - [id number] Implanted:Qty: 2 on 12/13/2021 by Moris Jimenez, DO at OR [facility] Left: Leg Lower [employer] 07/18/2024 [id number] / N/A / [id number] Vitoss Bbtrauma Foam Pack - [id number] - [id number] Implanted:Qty: 1 on 12/13/2021 by Moris Jimenez, DO at OR [facility] Left: Leg Lower MICHA : TRAUMA 01/15/20228573-8646 / [id number] / [id number] documented as of this encounter Visit Diagnoses Diagnosis penitentiary current use of anticoagulant therapy- Primary History of TIA (transient ischemic attack) Transient ischemic attack (TIA), and cerebral infarction without residual deficits S/P mitral valve replacement Heart valve replaced by other means Permanent atrial fibrillation (HCC) Atrial fibrillation Anticoagulation management encounter Encounter for therapeutic drug monitoring documented in this encounter Advance Directives Latest Code Status on File Code Status Date Activated Date Inactivated Comments Full Code 12/12/2021 7:18 PM 12/20/2021 6:08 PM This order reflects the patients wishes and were consensually agreed upon. Question Answer Comments Discussion of Advance Directives occurred with: Patient Care Teams Garnisher Relationship Specialty Start Date End Date Shara Ray MD [address] [place] [address] [place] [address] PCP - General Family Medicine 03/08/23 documented as of this encounter
--- OUTSIDE RECORDS SUMMARY | 2023-07-10 16:46 | External Medical Summary | Summary of Care ---
Author Name Unknown Organization [facility] Address [address] [place] [address] Phone [phone] Care Team Providers Care Edge Blacker Name Role Phone Shara Ray MD Primary Care Provide r Reason for Visit * Reason Onset Date Comments Appointment 06/10/2023 Encounter Details Date Type Department Care Team (Late st Contact Info) Description 06/10/2023 Telephone [facility], [facility] [address] [facility] [place] [address] Services, Scheduling [address] [place] [address] Appointment (/) Allergies Active Allergy Reactions Criticality Noted Date [...] as of this encounter (statuses as of 06/10/2023) Medications Medication Sig Dispensed Refills Start Date [...] BEDTIME 200 Tablet 1 02/05/2023 Active Nystatin 441405 UNIT/ML Mouth/Throat SuspensionIndication s:Thrush Swish and swallow [...] as of this encounter (statuses as of 06/10/2023) Active Problems Problem Noted Date Diagnosed Date Major depressive disorder, recurrent, moderate 0 04/03/2023 Last Assessment & Plan: Mood stable on current dose celexa Other persistent atrial fibrillation 04/03/2023 Last Assessment & Plan: Rate controlled Continue coumadin Atherosclerosis of [place] co ronary artery without angina pectoris 04/03/2023 [...] IM/IV Chest Xray Additional Comments: Followed by print designer - Dr. 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 0 05/10/2004 Overview: ICD-10 update of inactive term Rheumatic heart disease 03/05/2002 Old myocardial infarct 01/02/2001 Last Assessment & Plan: Continue Crestor 20 mg daily S/P mitral valve replacement Last Assessment & Plan: Chronic AC coumadin Atherosclerosis of [place] co ronary artery of [place] heart without angina pectoris documented as of this encounter (statuses as of 06/10/2023) Resolved Problems Problem Noted Date Diagnosed Date [...] Overview: Per CKD protocol #1 ORBIT-AF Research Other*[id number] 06/02/2010 04/18/2011 Overview: PROJECT: #[id number], SPONSOR: Aileen, PI: Adolfo De Jesus MD [...] can be closed. CONTACT: Roberto Carlos Huertas, Ostomy Nurse Type 2 diabetes mellitus wit h hemoglobin A1c goal of less than 7.0% 04/24/2010 08/29/2018 Overview: ICD-10 update of inactive term ACTIVE CASE MANAGEMENT Kassie Anthony, TANISHA [phone] 05/10/19 10 12/05/2009 ADVANCE DIRECTIVE INFORMATION 05/09/2009 04/26/2021 Overview: No, Advance Directive brochure given to patient. Dyslipidemia, goal LDL below 100 02/03/2009 09/24/2013 Overview: Per Lipid Taxonomy. Other abnormal glucose 03/13/200509/24 Mixed dyslipidemia 04/08/2002 12/200 9 Overview: Per Lipid Taxonomy. Anticoagulation management [...] as of this encounter (statuses as of 06/10/2023) Immunizations Name Administration Dates Next Due COVID-19 mRNA, LNP-s, No Pre serve, 2-Dose Series (Moderna) 04/19/2020,03/22/2020 COVID-19, MRNA-LNP, 23-24, P F, 30 MCG/0.3 mL, 12 YRS AND ABOVE, IM (PFIZER-Comirnaty) 12/03/2022 COVID-19, mRNA, LNP-s, PF, B ooster, 100mcg/0.5mg (Moderna) 03/14/2021 Covid-19, Mrna, Lnp-s, Pf, B ivalent, 50 Mcg, IM, 12 yrs and above (Moderna) 11/29/2021 Hepatitis B, 20+ yrs 09/01/1978,04/04/1978,01/15 /1979 Pneumococcal Conjugate Vacc, 13 Valent (Prevnar) 08/29/2018 [...] encounter Miscellaneous Notes * Telephone Encounter - Meredith Liriano OSA - 06/10/2023 3:47 PM EDT Per Request reschedule appt.. Called s/w pt she advised 06/20 at 8:30am is a good date and time. documented in this encounter Plan of Treatment Upcoming Encounters Date Type Department Care Team (Late st Contact Info) Description 06/11/2023 1:30 PM EDT Scheduled Telephone [facility], [facility] [address] [facility] [place] [address] Vee Santacruz, RASHAUN [address] [facility] [place] [address] 06/12/2023 10:00 AM EDT Laboratory Laboratory [address] [place] [phone] [address] [place] [address] 06/12/2023 6:00 PM EDT Anticoagulation Pharmacy Call Center [address] [facility] [place] [address] [facility] 58 [address] [facility] [place] [address] 06/20/2023 1:40 PM EDT Office Visit Family Medicine [address] [place] [address] Shara Ray MD [address] [place] [address] [place] [address] 06/21/2023 8:00 AM EDT Laboratory Lab Mobile Phlebotomy [facility] [address] [place] [address] [facility], [facility] Mobile Home Draw [address] [place] [address] 06/21/2023 8:30 AM EDT Home Visit [facility] [place], [facility] [place] [address] Valentina Laws RN [address] [place] [address] 06/21/2023 2:30 PM EDT Office Visit Cardiology, [facility] [address] [facility] [place] [address] Hadley Molina MD 132 [facility] [place] [address] 06/24/2023 11:00 AM EDT Office Visit Hematology/Oncology [facility] [address] [facility] [place] [address] Bouchra Del Cid CRNP [address] [place] [address] [place] [address] 07/04/2023 2:40 PM EDT Office Visit Nephrology [address] [place] [address] Aliyah Lacey MD [address] [facility] [place] [address] 08/05/2023 1:00 PM EDT Nurse Only Ancillary [address] [place] [address] [place], Nurse [address] [place] [address] 09/20/2023 8:00 AM EDT Laboratory Lab Mobile Phlebotomy [facility] [address] [place] [address] [facility], [facility] Mobile Home Draw [address] [place] [address] 09/24/2023 11:30 AM EDT Office Visit Nephrology, [facility] [address] [facility] [place] [address] Kary Pena PA-C [address] [facility] [place] [address] 12/20/2023 8:00 AM EDT Laboratory Lab Mobile Phlebotomy [facility] [address] [place] [address] [facility], [facility] Mobile Home Draw [address] [place] [address] 03/27/2024 8:00 AM EST Laboratory Lab Mobile Phlebotomy [facility] [address] [place] [address] [facility], [facility] Mobile Home Draw [address] [place] [address] 06/09/2024 1:30 PM EDT Office Visit Allergy/Immunology [place] [address] [place] [address] Rae Ramirez PA-C [address] [facility] [place] [address] Scheduled Procedures Name Priority Associated Diagnoses Date/Ti [...] Additional history exists CKD PHOS USE SMARTSET 29436 03/21/2024 02/0 02/2023, 12/19/2022, 11/28/2022, Additional history exists Albumin/Creatinine Ratio 05/06/2024 024, 12/03/2022, 02/05/2022, Additional history exists CKD HGB USE SMARTSET 09720 05/06/202405/06, 03/06/2023, 03/06/2023, Additional history exists O2 [...] this encounter Medical Devices Implanted Type Area Master Automotive Technician Device Identifier Shelf Expiration Date Model / Serial / Lot [place] Suture Biocomposite - Sn/A - [id number] Implanted:Qty: 2 on 12/13/2021 by Moris Jimenez, DO at OR [facility] Left: Leg Lower [employer] 07/18/2024 AR-2324BCC / N/A / [id number] Vitoss Bbtrauma Foam Pack - [id number] - [id number] Implanted:Qty: 1 on 12/13/2021 by Moris Jimenez, DO at OR [facility] Left: Leg Lower MICHA : TRAUMA 01/15/202221017292-7639 / [id number] / [id number] documented as of this encounter Advance Directives Latest Code Status on File Code Status Date Activated Date Inactivated Comments Full Code 12/12/2021 7:18 PM 12/20/2021 6:08 PM This order reflects the patients wishes and were consensually agreed upon. Question Answer Comments Discussion of Advance Directives occurred with: Patient Care Teams Edge Blacker Relationship Specialty Start Date End Date Shara Ray MD [address] [place] [address] [place] [phone] PCP - General Family Medicine 03/08/23 documented as of this encounter
--- OUTSIDE RECORDS SUMMARY | 2023-07-10 16:47 | External Medical Summary ---
Author Name Unknown Address Unknown Organization K01:[facility] - [address] [place] [address] Laboratory Report Ordering Provider Test Date Status WARREN BEGUM 06/07/2023 11:52:27 Final Observation Date Value Abnormality Reference (Units ) Status TSH 06/07/2023 11:52:27 2.10 0.27-4.20 (uIU/mL) Final Performing Location LAB[facility]ATORY [facility] [address] [facility] [address]
--- OUTSIDE RECORDS SUMMARY | 2023-07-10 16:47 | External Medical Summary | Summary of Care ---
Author Name Unknown Organization [facility] Address [address] [facility] [place] [address] Phone [phone] Care Team Providers Care Turbo Electric Operator Name Role Phone Shara Ray MD Primary Care Provide r Reason for Visit * Reason Comments Dosage Adjustment Via Phone (anticoag Cl inic) Encounter Details Date Type Department Care Team (Latest Contact Info) Description 06/07/2023 6:00 PM EDT Anticoagulation Pharmacy Call Center [address] [place] [address] [facility] [address] [place] [address] care home current use of anticoagulant therapy*; History of [...] 200 Tablet 1 02/05/2023 4 Active Nystatin 721761 UNIT/ML Mouth/Throat SuspensionIndication s:Thrush Swish and swallow [...] Rate controlled Continue coumadin Atherosclerosis of [place] co ronary artery without angina pectoris [...] IM/IV Chest Xray Additional Comments: Followed by utility clerk - Dr. 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 CONTACT: Roberto Carlos Huertas, Alumni Secretary Type 2 diabetes mellitus wit h hemoglobin A1c goal of less than 7.0% 04/24/2010 08/29/2018 Overview: ICD-10 update of inactive term ACTIVE CASE MANAGEMENT Kassie Anthony, RN 489 2116 05/10/19 10 12/05/2009 ADVANCE DIRECTIVE INFORMATION 05/09/2009 [...] this encounter Progress Notes * Kirby Gates, [facility] - 06/07/2023 2:33 PM EDT Medication Therapy Disease Management - Anticoagulation Patient: Abdi Bowling | : 1955 Subjective Contacts Type Contact Phone/Fax 06/07/2023 02:37 PM EDT Phone (Outgoing) Abdi Bowling (Self) [phone] (M) spoke with Lucius Patient-Reported Symptoms: Patient [...] stays therapeutic Additional Dosing Information: Description GML Wedramsey Malcolm Wed ([facility], [facility], or [facility]) Please also send myG Kirby Gates RPh Clinical Pharmacist 06/07/2023, 2:34 PM documented in this encounter Plan of Treatment Upcoming Encounters Date Type Department Care Team (Late st Contact Info) Description 06/10/2023 12:20 PM EDT Office Visit Family Medicine [address] [place] [phone] Shara Ray MD [address] [place] [address] [place] [address] 06/11/2023 1:30 PM EDT Scheduled Telephone [facility], [facility] [address] [facility] [place] [address] Vee Santacruz RDN [address] [facility] [place] [address] 06/12/2023 6:00 PM EDT Anticoagulation Pharmacy Call Center [address] [facility] [place] [address] [facility], [facility] 58 60 [facility] [place] [address] 06/20/2023 5:30 PM EDT Home Visit [facility], [facility] [address] [place] [address] Valentina Laws, RN [address] [place] [address] 06/21/2023 8:00 AM EDT Laboratory Lab Mobile Phlebotomy [facility] [address] [place] [address] [facility] Mobile Home Draw [address] [place] [address] 06/21/2023 2:30 PM EDT Office Visit Cardiology, [facility] [address] [place] [facility] [place] [address] Hadley Molina MD [address] [place] [address] 06/24/2023 11:00 AM EDT Office Visit Hematology/Oncology [facility] [address] [place] [address] Bouchra Del Cid CRNP [address] [place] [address] 07/04/2023 2:40 PM EDT Office Visit Nephrology [address] [place] [address] Aliyah Lacey MD [address] [place] [address] 08/05/2023 1:00 PM EDT Nurse Only Ancillary [address] [place] [address] [place], Nurse [address] [place] [address] 09/20/2023 8:00 AM EDT Laboratory Lab Mobile Phlebotomy [facility] [address] [place] [address] [facility] Mobile Home Draw [address] [place] [address] 09/24/2023 11:30 AM EDT Office Visit Nephrology, [facility] [address] [place] [address] Kary Pena PA-C [address] [place] [address] 12/20/2023 8:00 AM EDT Laboratory Lab Mobile Phlebotomy [facility] [address] [place] [address] [facility] Mobile Home Draw [address] [place] [address] 03/27/2024 8:00 AM EST Laboratory Lab Mobile Phlebotomy [facility] [address] [place] [address] [facility] Mobile Home Draw [address] [place] [address] 06/09/2024 1:30 PM EDT Office Visit Allergy/Immunology [facility] [address] [facility] [place] [address] Rae Ramirez PA-C [address] [facility] [place] [address] Scheduled Procedures Name Priority Associated Diagnoses Date/Ti [...] Additional history exists CKD PHOS USE SMARTSET 81739 03/21/2024 02/0 02/2023, 12/19/2022, 11/28/2022, Additional history exists Albumin/Creatinine Ratio 05/06/2024 024, 12/03/2022, 02/05/2022, Additional history exists CKD HGB USE SMARTSET 94314 05/06/202405/06, 03/06/2023, 03/06/2023, Additional history exists O2 [...] this encounter Medical Devices Implanted Type Area Feeder Loader Device Identifier Shelf Expiration Date Model / Serial / Lot [place] Suture Biocomposite - Sn/A - [id number] Implanted:Qty: 2 on 12/13/2021 by Moris Jimenez DO at OR [facility] Left: Leg Lower [employer] 07/18/2024 [id number] / N/A / [id number] Vitoss Bbtrauma Foam Pack - [id number] - [id number] Implanted:Qty: 1 on 12/13/2021 by Moris Jimenez DO at OR [facility] Left: Leg Lower MICHA : TRAUMA 01/15/2022 3105-2025 / [id number] / [id number] documented as of this encounter Visit Diagnoses Diagnosis 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
--- OUTSIDE RECORDS SUMMARY | 2023-07-10 16:47 | External Medical Summary | Summary of Care ---
Author Name Unknown Organization [facility] Address [address] [facility] [place] [address] Phone [phone] Care Team Providers Care Exterior Work Helper Name Role Phone Shara Ray MD Primary Care Provide r Reason for Visit * Reason Comments Outpatient Testing Encounter Details Date Type Department Care Team (Late st Contact Info) Description 06/07/2023 12:40 PM EDT Laboratory Laboratory, [facility] 132 [facility] [place] [phone] [facility] 132 [facility] [address] daycare assistant current use of anticoagulant therapy; History of TIA (transient ischemic attack); S/P mitral valve replacement; Permanent atrial fibrillation (HCC); Hypothyroidism, postablative Allergies Active Allergy Reactions Criticality Noted Date [...] BEDTIME 200 Tablet 1 02/05/2023 Active Nystatin 357361 UNIT/ML Mouth/Throat SuspensionIndication s:Thrush Swish and swallow [...] Plan: Rate controlled Continue coumadin Atherosclerosis of [place] co ronary artery without angina pectoris 04/03/2023 [...] IM/IV Chest Xray Additional Comments: Followed by disaster director - Dr. Rashel Sales [facility] Closed nondisplaced fracture of left tibial tuberosity with routine healing 12/12/2021 Mild protein-calorie malnutrition 12/05/2021 Controlled substance agreement signed 12/05/2021 Hematoma of leg, left, subsequent encounter 09/2021 Overview: [facility] ER ulstrasound shows hematoma calf, INR 4.2, [...] the Comments) Remote Patient Monitoring Vendor: [facility] Device(s): Connected Scale [...] & Plan: Symptoms well controlled on omeprazole care home current use of anticoagulant therapy 0 05/10/2004 Overview: ICD-10 update of inactive term Rheumatic heart disease 03/05/2002 Old myocardial infarct 01/02/2001 Last Assessment & Plan: Continue Crestor 20 mg daily S/P mitral valve replacement Last Assessment & Plan: Chronic AC coumadin Atherosclerosis of [place] co ronary artery of [place] heart without angina pectoris documented as of [...] Overview: Per CKD protocol #1 ORBIT-[employer] Research Other*[id number] 06/02/2010 04/18/2011 Overview: PROJECT: #[id number], SPONSOR: Aileen, PI: Adolfo De Jesus MD [...] can be closed. CONTACT: Roberto Carlos Huertas, System Technologist Type 2 diabetes mellitus wit h hemoglobin [...] Care Team (Late st Contact Info) Description 06/07/2023 6:00 PM EDT Anticoagulation Pharmacy Call Center [address] [place] [address] [facility] [address] [facility] [place] [address] 06/10/2023 12:20 PM EDT Office Visit Family Medicine [address] [place] [phone] Shara Ray MD [address] [place] [address] [place] [address] 06/11/2023 1:30 PM EDT Scheduled Telephone [facility], [facility] [address] [facility] [place] [address] Vee Santacruz, RASHAUN [address] [facility] [place] [address] 06/20/2023 5:30 PM EDT Home Visit [facility], [facility] [address] [place] [address] Valentina Laws, RN [address] [place] [address] 06/21/2023 8:00 AM EDT Laboratory Lab Mobile Phlebotomy [facility] [address] [place] [address] [facility], [facility] Mobile Home Draw [address] [place] [address] 06/21/2023 2:30 PM EDT Office Visit Cardiology, [facility] [place] [address] Hadley Molina MD 132 [facility] [place] [address] 06/24/2023 11:00 AM EDT Office Visit Hematology/Oncology [facility] 200 [facility] [place] [address] Bouchra Del Cid CRNP [address] [place] [address] 07/04/2023 2:40 PM EDT Office Visit Nephrology [address] [place] [address] Aliyah Lacey MD 200 [facility] [place] [address] 08/05/2023 1:00 PM EDT Nurse Only Ancillary [address] [place] [address] [place], Nurse [address] [place] [address] 09/20/2023 8:00 AM EDT Laboratory Lab Mobile Phlebotomy [facility] [address] [place] [address] [facility], [facility] Mobile Home Draw [address] [place] [address] 09/24/2023 11:30 AM EDT Office Visit Nephrology, [facility] 200 [facility] [place] [address] Kary Pena PA-C 200 [facility] [place] [address] 12/20/2023 8:00 AM EDT Laboratory Lab Mobile Phlebotomy [facility] [address] [place] [address] [facility], [facility] Mobile Home Draw [address] [place] [address] 03/27/2024 8:00 AM EST Laboratory Lab Mobile Phlebotomy [facility] [address] [place] [address] [facility], [facility] Mobile Home Draw [address] [place] [address] 06/09/2024 1:30 PM EDT Office Visit [facility] [place] 200 [facility] [place] [address] Rae Ramirez PA-C 200 [facility] [place] [address] Pending Results Name Type Priority Associated Diagnoses Date /Time PT INR Lab Routine care home current use of anticoagulant therapy History of TIA (transient ischemic attack) S/P mitral valve replacement Permanent atrial fibrillation (HCC) 06/07/2023 11:52 AM EDT TSH WITH FREE T4 IF INDICATED Lab Routine Hypothyroidism, postablative 06/07/2023 11:52 AM EDT Scheduled Procedures Name Priority Associated [...] Additional history exists CKD PHOS USE SMARTSET 98724 03/21/2024 02/0 02/2023, 12/19/2022, 11/28/2022, Additional history exists Albumin/Creatinine Ratio 05/06/2024 024, 12/03/2022, 02/05/2022, Additional history exists CKD HGB USE SMARTSET 75128 05/06/202405/06, 03/06/2023, 03/06/2023, Additional history exists O2 [...] this encounter Medical Devices Implanted Type Area Bail Bondsman Device Identifier Shelf Expiration Date Model / Serial / Lot [place] Suture Biocomposite - Sn/A - [id number] Implanted:Qty: 2 on 12/13/2021 by Moris Jimenez, DO at OR [facility] Left: Leg Lower [employer] 07/18/2024 AR-[id number] / N/A / [id number] Vitoss Bbtrauma Foam Pack - [id number] - [id number] Implanted:Qty: 1 on 12/13/2021 by Moris Jimenez DO at OR [facility] Left: Leg Lower MICHA : TRAUMA 01/15/20220976-7040 / [id number] / [id number] documented as of this encounter Visit Diagnoses Diagnosis care home current use of anticoagulant therapy History of TIA (transient ischemic attack) Transient ischemic attack (TIA), and cerebral infarction without residual deficits S/P mitral valve replacement Heart valve replaced by other means Permanent atrial fibrillation (HCC) Atrial fibrillation Hypothyroidism, postablative Other postablative hypothyroidism documented in this encounter Advance Directives Latest Code Status on File Code Status Date Activated Date Inactivated Comments Full Code 12/12/2021 7:18 PM 12/20/2021 6:08 PM This order reflects the patients wishes and were consensually agreed upon. Question Answer Comments Discussion of Advance Directives occurred with: Patient Care Teams Exterior Work Helper Relationship Specialty Start Date End Date Shara Ray MD [address] [place] [address] [place] [phone] PCP - General Family Medicine 03/08/23 documented as of this encounter
--- OUTSIDE RECORDS SUMMARY | 2023-07-10 16:48 | External Medical Summary ---
Author Name Unknown Address Unknown Organization K[facility] [address] [place] [address] Laboratory Report Ordering Provider Test Date Status SONIA PANTOJA 06/07/2023 11:52:27 Final Standing order for pt/inr. < br/>Please draw pt/inr every 1 to 4 weeks as requested.
Results to [facility]

Warfarin Therapy
INR: 2.0-3.0 conventional anticoagulation
INR: 2.5-3.5 high intensity anticoagulation Observation Date Value Abnormality Reference (Units ) Status PT 06/07/2023 11:52:27 32.7 Above high normal 11 .6-15.2 (seconds) Final INR 06/07/2023 11:52:27 3.1 Above high normal 0. 8-1.2 Final Performing Location [facility] [address] [place] [address]
--- OUTSIDE RECORDS SUMMARY | 2023-07-10 16:48 | External Medical Summary | Summary of Care ---
Author Name Unknown Organization [facility] Address [address] [place] [place] [address] Phone [phone] Care Team Providers Care System Controller Name Role Phone Shara Ray MD Primary Care Provide r Reason for Visit * Reason Comments Allergy Return Encounter Details Date Type Department Care Team (Late st Contact Info) Description 06/04/2023 1:30 PM EDT Office Visit Allergy/Immunology [facility] [place] [address] [place] [address] Macario Pathak MD [address] [place] [address] Chronic cough*; Seasonal allergic rhinitis due to pollen; Mixed rhinitis; PND (post-nasal drip); Cough variant asthma Allergies Active Allergy Reactions Criticality Noted Date [...] as of this encounter (statuses as of 06/04/2023) Medications Medication Sig Dispensed Refills Start Date [...] 200 Tablet 1 02/05/2023 4 Active Nystatin [id number] UNIT/ML Mouth/Throat SuspensionIndication s:Thrush Swish and swallow [...] as of this encounter (statuses as of 06/04/2023) Active Problems Problem Noted Date Diagnosed Date Major depressive disorder, recurrent, moderate 0 04/03/2023 Last Assessment & Plan: Mood stable on current dose celexa Other persistent atrial fibrillation 04/03/2023 Last Assessment & Plan: Rate controlled Continue coumadin Atherosclerosis of [place] co ronary artery without angina pectoris 04/03/2023 [...] IM/IV Chest Xray Additional Comments: Followed by butter maker - Dr. 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 therapy 0 05/10/2004 Overview: ICD-10 update of inactive term Rheumatic heart disease 03/05/2002 Old myocardial infarct 01/02/2001 Last Assessment & Plan: Continue Crestor 20 mg daily S/P mitral valve replacement Last Assessment & Plan: Chronic AC coumadin Atherosclerosis of s[place] co ronary artery of s[place] heart without angina pectoris documented as of this encounter (statuses as of 06/04/2023) Resolved Problems Problem Noted Date Diagnosed Date [...] Overview: Per CKD protocol #1 [employer] Other*[id number] 06/02/2010 04/18/2011 Overview: PROJECT: #[id number], SPONSOR: Aileen, PI: Adolfo De Jesus MD [...] can be closed. CONTACT: Roberto Carlos Huertas, Physicist [employer] Type 2 diabetes mellitus wit h hemoglobin [...] as of this encounter (statuses as of 06/04/2023) Immunizations Name Administration Dates Next Due COVID-19 mRNA, LNP-s, No Pre serve, 2-Dose Series (Moderna) 04/19/2020,03/22/2020 COVID-19, MRNA-LNP, 23-24, P F, 30 MCG/0.3 mL, 12 YRS AND ABOVE, IM (Sparkfly-Comirnat) 12/03/2022 COVID-19, mRNA, LNP-s, PF, B ooster, [...] Sign Reading Time Taken Comments Blood Pressure 128/74 06/04/2023 1:41 PM EDT Pulse 74 06/04/2023 1:41 PM EDT Temperature 37.2 C (98.9 F) 06/04/2023 1:41 PM ED T Respiratory Rate 18 06/04/2023 1:41 PM EDT Oxygen Saturation 99% 06/04/2023 1:41 PM EDT Inhaled Oxygen Concentration - - Weight 66.1 kg (145 lb 11.2 oz) 06/04/2023 1:41 PM EDT Height 142.2 cm (4' 8") 06/04/2023 1:41 PM EDT Body Mass Index 32.67 06/04/2023 1:41 PM EDT documented in this [...] No 12/12/2021 documented as of this encounter Patient Instructions * Patient Instructions* Macario Pathak MD - 06/04/2023 1:48 PM EDT Nonallergic Trigger Avoidance Measures: Do not smoke, no smoking allowed in house or vehicles; avoid wood, coal burning stoves , and kerosene heaters; avoid strong smelling perfumes and perfumed cosmetics; do not use incense, potpourri, or scented candles, air fresheners in the home; avoid chemicalodors and weather changes (abrupt changes in temperature and humidity). If unavoidable, use a HEPA air-cleaning device. Pollen Avoidance Measures: Keep windows, doors closed; use air conditioning; dry clothes in vented dryer, not outside on clothesline; shower/bathe and change clothes right after outdoor activity; avoid outdoor activity during high pollen counts; use HEPA type air filtration system. documented in this encounter Progress Notes * Macario Pathak MD - 06/04/2023 1:48 PM EDT REASON FOR VISIT: Chief Complaint Patient presents with Allergy Return SUBJECTIVE: Abdi is evaluated in follow up for her chronic cough and mixed type rhinitis. Today she is accompanied by her . Overall Abdi has been doing fairly well. As you may recall, she currently is on Astelin 2 sprays to each nostril twice daily and this has cut down on her postnasal drip and throat irritation overall. She has much less of a chronic cough due to this. She denies any nasal congestion, rhinorrhea nor excessive sneezing. In the past she has had testing for allergies and this did show grass pollen sensitivities only. She also does note that strong odors, perfumes, scented products, smoke, and other respiratory irritants tend to trigger her postnasal drip. She denies any sinus infections nor ear infections. There have been no recent nosebleeds as this has improved with humidified oxygen. She is continuing to follow up with her butter maker who is treating her with duo nebs 2-4 times daily in addition to Combivent and albuterol as needed. She is not on any inhaled corticosteroids as she is trying to avoid corticosteroids. Inhaled corticosteroids including corticosteroids via the nebulizer, has caused worsening shortness of breath in the past. The patient currently is on oxygen at nighttime and there may be a need for oxygen during the daytime. She will be discussing this with her butter maker in the near future. Patient Active Problem List Diagnosis Code Rheumatic heart disease I09.9 alf current use of anticoagulant therapy Z79.01 S/P mitral valve replacement Z95.2 Gastroesophageal reflux disease with esophagitis without hemorrhage K21.00 Generalized osteoarthritis M15.9 Hypothyroidism, postablative E89.0 Atherosclerosis of sokaogon coronary artery of [place] heart without angina pectoris I25.10 Dyslipidemia, goal LDL below 100 E78.5 Restless legs syndrome G25.81 History of TIA (transient ischemic attack) Z86.73 Varicose veins of both legs with edema I83.893 Permanent atrial fibrillation (HCC) I48.21 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 Old myocardial infarct I25.2 Status post bilateral knee replacements Z96.653 Type 2 diabetes mellitus with stage 3b chronic kidney disease, without long-term current use of insulin (HCC) E11.22, N18.32 Hypertensive heart and kidney disease with chronic diastolic congestive heart failure and stage 3b chronic kidney disease (HCC) I13.0, I50.32, N18.32 Recurrent falls R29.6 Generalized anxiety disorder F41.1 Chronic cough R05.3 Other injury of unspecified body region, subsequent encounter T14.8XXD Mild protein-calorie malnutrition (HCC) E44.1 Hematoma of leg, left, subsequent encounter S80.12XD Controlled substance agreement signed Z79.899 Closed nondisplaced fracture of left tibial tuberosity with routine healing S82.155D COPD, group B, by GOLD 2017 classification ([facility]) J44.9 Iron deficiency anemia D50.9 Restless leg syndrome G25.81 Major depressive disorder, recurrent, moderate ([facility]) F33.1 Other persistent atrial fibrillation ([facility]) I48.19 Atherosclerosis of s[place] coronary artery without angina pectoris I25.10 Past Medical History: Diagnosis Date Acute on chronic diastolic CHF (congestive heart failure) (HCC) 07/18/2021 [facility] Anticoagulation management encounter 08/06/2001 INR 3-3.5 Anxiety attack 06/23/2021 Evaluated [facility] ER Atrial fibrillation ([facility]) Bronchitis 02/18/2022 got sick on 9 days En cruise Coronary atherosclerosis of s[place] coronary artery Cough variant asthma 01/16/2021 COVID-19 10/14/2020 Cystitis 12/12/2021 [place] Klebsiella and E coli Diverticulosis of colon (without mention of hemorrhage) 07/16/2013 sigmoid & descending colon DM type 2, goal A1c below 7 diet controlled Dyslipidemia, goal LDL below 70 09/24/2013 Encounter for hepatitis C screening test for low risk patient 03/28/2021 negative Esophageal reflux 12/03/2008 min gastric inflammation and mod active chronic esophageal inflammation-repeat EGD in 2 yrs Facial paresthesia 05/21/2018 [facility] possibly stress Fracture of left tibial tuberosity 12/07/2021 [place] knee replaced GENERAL OSTEOARTHROSIS 01/31/2010 Generalized anxiety disorder 06/26/2021 citalopram started Hemarthrosis involving knee joint Hematoma of left lower leg 11/25/2021 [facility] ER ulstrasound shows hematoma calf, INR 4.2, hgb 9.9 Hyperlipidemia LDL goal < 100 12/23/2013 Hypertensive heart and kidney disease with chronic diastolic congestive heart failure and stage 3b chronic kidney disease (HCC) 04/26/2021 Hypothyroidism, postablative 09/24/2013 Intramuscular hematoma 08/02/2021 left leg, [facility] Kidney disease, chronic, stage III (GFR 30-59 ml/min) ([facility]) 07/09/2011 Per CKD protocol #1 LONG-TERM USE OF ANTICOAGULANTS 05/10/2004 MEDICATION USE AGREEMENT 08/29/2017 Migraine with aura, intractable Old myocardial infarct 01/02/2001 Other abnormal glucose 03/13/2005 Postural dizziness with presyncope 12/05/2017 [facility] also burned her arm. GFR 17 Protein calorie malnutrition ([facility]) Restless legs syndrome 12/06/2016 RHEUMATIC HEART DISEASE 03/05/2002 Right knee DJD S/P mitral valve replacement 1994 mechanical Shingles 02/13/2014 left thigh Syncope 01/13/2021 [facility] VICKY and dehydration Tachy-sammi syndrome (HCC) 02/14/2018 Tendonitis, Achilles, left 02/18/2022 walked a lot on a cruise TIA (transient ischemic attack) 12/23/2013 embolic Past Surgical History: Procedure Laterality Date ARTHROPLASTY KNEE TOTAL Left 09/23/2018 [facility] had post op hemarthrosis required transfusions Dr Cormier ARTHROPLASTY KNEE TOTAL Right 01/13/2019 [facility] CATHETERIZE LEFT HEART THRU SKIN 1993 CHG [...] performed by Moris Jimenez DO at OR [facility] DISTAL TIBIA FX W/FIXATION OF TIBIA, OPEN Left 12/11/2021 OPEN TREATMENT OF PILON FRACTURE TIBIA ONLY performed by Moris Jimenez DO at OR [facility] EEG 05/20/2018 normal EGD, FLEXIBLE, DIAGNOSTIC N/A 02/24/2020 hiatal hernia, normal esophagus and duodenum, inflammation gastric antrum EGD, FLEXIBLE, DIAGNOSTIC 02/24/2020 gastritis, hiatal hernia / ESOPHAGOGASTRODUODENOSCOPY (EGD), FLEXIBLE, TRANSORAL, DIAGNOSTIC performed by Louie Childress MD at ENDOSCOPY [facility] EGD, FLEXIBLE, DIAGNOSTIC 07/24/2021 normal / INPT [facility] EGD, FLEXIBLE, INSERT WIRE, PASS DILATOR 09/13/2009 repeat PRN EGD, FLEXIBLE, W/BIOPSY 12/03/2008 min gastric inflammation and mod active chronic esophageal inflammation-repeat EGD in 2 yrs ELECTRICAL CARDIOVERSION 1986 cardioversion IR TOMOSYNTHESIS, MAMMO SCREEN Bilateral 11/09/2016 [...] VENOUS LE UNILAT Left 02/27/2021 no DVT Current Outpatient Medications Medication Sig Dispense Refill [...] Oral Capsule One daily 100 Capsule 1 valACYclovir HCl 1 GM Oral Tablet (Valtrex) Take 2 Tablets by mouth in the morning and 2 Tablets before bedtime. for cold sores. 4 Tablet 11 Omeprazole 20 MG Oral Capsule Delayed Release [...] mouth ulcers as needed 50 mL 0 Spironolactone 25 MG Oral Tablet (Aldactone) TAKE ONE-HALF TABLET BY MOUTH IN THE MORNING 50 Tablet1 Sucralfate 1 GM/10ML Oral Suspension (Carafate) TAKE 10 ML BY MOUTH NEEDED IN THE MORNING AND 10ML NEEDED AT NOON AND 10 ML NEEDED IN THE EVENING AND 10 ML NEEDED BEFORE BEDTIME. 420 mL 1 Metoprolol Tartrate 25 MG Oral Tablet (Lopressor) TAKE ONE TABLET BY MOUTH TWICE A DAY IN THE MORNING AND BEFORE BEDTIME 200 Tablet 1 Nystatin 401977 UNIT/ML Mouth/Throat Suspension Swish and swallow 5 mL in the morning and 5 mL at noon and 5 mL in the evening and 5 mL before bedtime. For thrush.. 240 mL 1 Warfarin Sodium 2.5 MG Oral Tablet (Coumadin) Take 1 and 1/2 to 2 tablets by mouth daily as directed by [facility] 180 Tablet 3 Nitroglycerin 0.4 MG [...] prior to torsemide in the morning on daysrected 12 Tablet 5 Torsemide 100 MG Oral [...] to skin once a week as directed Ipratropium-Albuterol 0.5-2.5 (3) MG/3ML Inhalation Solution (Duoneb) Inhale 3 mL by mouth every 6 hours as needed. No current facility-administered medications for this visit. Allergies as of 06/04/2023 - Reviewed 06/04/2023 Allergen Reaction Noted Budesonide Other (Please comment) 06/13/2022 Hydroxyzine 03/31/2021 Metformin 03/31/2021 Parsley seed 07/18/2021 Vincent inhibitors 11/13/2005 Gabapentin Neuro complications (Please comment) 01/08/2020 Lovenox [enoxaparin] 08/23/2021 Oxycodone 11/11/2018 Phenothiazines Unknown 10/08/2000 Prochlorperazine Neuro complications (Please comment) 10/08/2000 Tetracycline Nausea/vomiting 10/08/2000 Family History Problem Relation Age of Onset Eczema Mother Other (COVID) Mother Multi system organ failure, age 90 Cancer Father Bladder Allergies Brother Cat and dog allergies Cancer Grandfather (Maternal) Leukemia Heart Disorder Uncle (Unspecified) Social History Tobacco Use Smoking status: Never Smokeless tobacco: Never Tobacco comments: No passive smoke exposures Vaping Use Vaping Use: Never used Substance Use Topics Alcohol use: Yes Alcohol/week: 7.0 standard drinks of alcohol Types: 7 5 oz of wine per week Comment: wine daily Drug use: No Environment/Occupation/Activities of Daily Living: She lives in a two-story house. Oil hot water baseboard heat. No air conditioning. Basement partially finished with occasional dampness. No indoor pets. She does not use scented materials in the home. Bedroom 2nd floor carpeted. 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 BP 128/74 (BP Site: Left Arm, BP Position: Sitting) | Pulse 74 | Temp 37.2 C (98.9 F) (Tympanic) | Resp 18 | Ht 1.422 m (4' 8") | Wt 66.1 kg (145 lb 11.2 oz) | SpO2 99% | BMI 32.67 kg/m | BSA 1.62 m PHYSICAL EXAM: GENERAL: No acute distress. No cough throughout exam HEAD AND FACE: No sinus tenderness noted EYES: Conjunctiva- normal; EARS: TM's - clear NOSE:Pale mucosa; Mild Inferior turbinate edema; no nasal polyps or mucopus; Septum - normal OROPHARYNX: Mild erythema, cobblestoning; No lesions, exudates NECK: Supple; No thyroid enlargment or cervical adenopathy RESPIRATORY: Clear to A and P; No wheezes; Decreased breath sounds bilaterally. CARDIOVASCULAR: RRR; No gallops, rubs, clicks, Gr 1/6 murmur with mechanical valve sounds. LYMPHATIC: No significant adenopathy noted EXTREMITIES: No cyanosis, clubbing or peripheral edema SKIN: No evidence atopic dermatitis; no urticaria or angioedema Normal skin quality; OBJECTIVE DATA: Review of a chest x-ray [facility] 07/18/21 revealed cardiomegaly with pulmonary edema, small to moderate right pleural effusion with right basilar consolidation. Review of a chest CT [facility] 07/18/21 revealed no evidence for pulmonary embolus. Small right pleural effusion. Moderate cardiomegaly. Right middle and right lower lobe airspace opacities. Radiologist favors atelectasis but a superimposed pneumonia could have similar appearance. XR CHEST 2 VIEWS - 07/12/2021 FINDINGS Sternotomy wires. Post surgical changes in the mediastinum. Small right pleural effusion and associated basilar atelectasis/airspace disease. No pneumothorax. No pleural effusion. Stable cardiomegaly. Osseous structures are unchanged. Degenerative changes are noted in the spine and shoulders. No acute findings in the upper abdomen. IMPRESSION 1. Small right pleural effusion and associated basilar atelectasis/airspace disease. Differential includes infection and/or fluid overload. Component Latest Ref Rng & Units 07/07/2021July Grass IgE <0.35 kU/L 2.82 (Class 2) Travon Grass IgE <0.35 kU/L 1.85 (Class 2) Common Ragweed IgE <0.35 kU/L <0.20 Pigweed IgE <0.35 kU/L <0.20 Rogers IgE <0.35 kU/L <0.20 Elm IgE <0.35 kU/L <0.20 Mite-Farinae IgE <0.35 kU/L <0.20 Mite-Pteronyssinus IgE <0.35 kU/L <0.20 Alternaria IgE <0.35 kU/L <0.20 Cat Dander IgE <0.35 kU/L <0.20 Dog Epithelium IgE <0.35 kU/L <0.20 Dog Dander IgE <0.35 kU/L <0.20 Cladosporium IgE <0.35 kU/L <0.20 Barragan's Quarters IgE <0.35 kU/L <0.20 IgE 0.0 - 87.0 kU/L 125.0 (H) Aspergillus IgE <0.35 kU/L <0.20 Birch IgE <0.35 kU/L <0.20 Penicillium Notatum IgE <0.35 kU/L <0.20 EGD 02/24/2020- Hiatal hernia. - Gastritis. Biopsied. - Normal examined duodenum. A. Stomach, biopsy: - Benign antral/oxyntic type mucosa with mild reactive change - No active inflammation or H. pylori organisms (routine H&E examination) ASSESSMENT: ICD-10-CM 1. Chronic cough R05.3 2. Seasonal allergic rhinitis due to pollen J30.1 3. Mixed rhinitis J31.0 4. PND (post-nasal drip) R09.82 5. Cough variant asthma J45.991 PLAN: In summary, Abdi carries a diagnosis of a chronic cough that is multifactorial in nature. One of her primary triggers tend to be nonallergic triggers such as drastic changes in the barometric pressure, drastic changes in temperature, and respiratory irritants such as strong odors, perfumes, colognes, scented products, smoke, chemicals, and exhaust fumes. She also has sensitizations to grass pollen only. She will continue with pollen avoidance measures as previously discussed. Hence, we do recommend that she continue with Astelin 2 sprays each nostril twice daily as this hasbeen shown to improve her cough and reduce postnasal drip. We will avoid intranasal steroid sprays as she has been told by several other physicians to avoid any form of steroids including inhaled corticosteroids and nasal steroid sprays due to her other conditions. We do recommend that she continue to follow up with pulmonology. She is not having any significant cough or active wheezing at this point in time. She did have a poor reaction to budesonide so we will avoid inhaled corticosteroids as well. Should she have worsening of symptoms, consideration towards Singulair may be our next step. She will also continue with using omeprazole for gastroesophageal reflux disease which can also be a contributing factor for her chronic cough. I spent a total of 30-39 minutes (exact time 31 mins) on the date of service in preparation, delivery, and documentation of the care provided to Abdi Bowling excluding any time spent in the performance of separately billed services. Macario Pathak MD Allergy/Immunology (This note was completed using the dictation program Fluency Direct. As such, there may be misspellings, word substitutions, or other variations that should not change the essence of the clinical content of this encounter note.If there is need for further clarification, please direct questions to the provider listed above.) documented in this encounter Nursing Notes * Kamala Little LPN - 06/04/2023 1:32 PM EDT The pt has been properly identified by confirmation of name and date of . Patient presents for allergy follow up. Patient states need for O2 portable for during the day. Patient states need for new script for tubing and masking. documented in this encounter Plan of Treatment Upcoming Encounters Date Type Department Care Team (Late st Contact Info) Description 06/07/2023 9:50 AM EDT [facility] [address] [place] [phone] Jeevan Chavez [address] [place] [address] 06/07/2023 6:00 PM EDT [facility]ly [facility] Call Center [address] [facility] [place] [address] [facility] [address] [facility] [place] [address] 06/10/2023 12:20 PM EDT Office Visit Family Medicine [address] [place] [phone] Shara Ray MD [address] [place] [address] [place] [address] 06/11/2023 1:30 PM EDT Scheduled Telephone [facility], [facility] [address] [facility] [place] [address] Vee Santacruz, RASHAUN [address] [facility] [place] [address] 06/20/2023 5:30 PM EDT Home Visit [facility], [facility] [address] [place] [address] Valentina Laws RN [address] [facility] [place] [address] 06/21/2023 8:00 AM EDT Laboratory [place] [facility] [place] [address] [place] [address] [facility] Home Draw [address] [place] [address] 06/21/2023 2:30 PM EDT Office Visit Cardiology, [facility] [address] [facility] [place] [address] Hadley Molina MD [address] [place] [address] 06/24/2023 11:00 AM EDT [facility] [place] [address] [facility] [place] [phone] Bouchra Del Cid CRNP [address] [facility] [place] [address] 07/04/2023 2:40 PM EDT Office Visit Nephrology [address] [place] [address] Aliyah Lacey MD [address] [place] [address] 08/05/2023 1:00 PM EDT Nurse Only Ancillary [address] [place] [address] [place], Nurse [address] [place] [address] 09/20/2023 8:00 AM EDT Laboratory Lab [place] [facility] [place] [address] [place] [address] [facility] Mobile Home Draw [address] [place] [address] 09/24/2023 11:30 AM EDT Office Visit Nephrology, [facility] [address] [place] [address] Kary Pena PA-C [address] [facility] [place] [address] 12/20/2023 8:00 AM EDT Laboratory Lab [place] [facility] [place] [address] [place] [address] [facility] Mobile Home Draw [address] [place] [address] 03/27/2024 8:00 AM EST Laboratory Lab [place]lebotomy [facility] [place] [address] [place] [address] [facility], [facility] Mobile Home Draw [address] [place] [address] 06/09/2024 1:30 PM EDT Office Visit [facility]Immun[facility] [place] [address] [place] [address] Rae Ramirez PA-C [address] [facility] [place] [address] Scheduled Procedures Name Priority Associated Diagnoses Date/Ti [...] Additional history exists CKD PHOS USE SMARTSET 57921 03/21/2024 02/0 02/2023, 12/19/2022, 11/28/2022, Additional history exists Albumin/Creatinine Ratio 05/06/2024 024, 12/03/2022, 02/05/2022, Additional history exists CKD HGB USE SMARTSET 36346 05/06/202405/06, 03/06/2023, 03/06/2023, Additional history exists O2 [...] this encounter Medical Devices Implanted Type Area Claim Agent Device Identifier Shelf Expiration Date Model / Serial / Lot [place] S[employer]ocomposite - Sn/A - [id number] Implanted:Qty: 2 on 12/13/2021 by Moris Jimenez DO at OR [facility] Left: Leg Lower [employer] 07/18/2024 [id number] / N/A / [id number] [employer] Bbtrauma Foam Pack - [id number] - [id number] Implanted:Qty: 1 on 12/13/2021 by Moris Jimenez DO at OR [facility] Left: Leg Lower MICHA : TRAUMA 01/15/2022 / [id number] / [id number] documented as of this encounter Visit Diagnoses Diagnosis Chronic cough- Primary Cough Seasonal allergic rhinitis due to pollen Mixed rhinitis Chronic rhinitis PND (post-nasal drip) Postnasal drip Cough variant asthma documented in this encounter Advance Directives Latest Code Status on File Code Status Date Activated Date Inactivated Comments Full Code 12/12/2021 7:18 PM 12/20/2021 6:08 PM This order reflects the patients wishes and were consensually agreed upon. Question Answer Comments Discussion of Advance Directives occurred with: Patient Care Teams System Controller Relationship Specialty Start Date End Date Shara Ray MD [address] [place] [address] [place] [address] PCP - General Family Medicine 03/08/23 documented as of this encounter
--- OUTSIDE RECORDS SUMMARY | 2023-07-10 16:49 | External Medical Summary | Summary of Care ---
Author Name Unknown Organization [facility] Address [address] [place] [address] Phone [phone] Care Team Providers Care Plate Stacker Hand Name Role Phone Shara Ray MD Primary Care Provide r Reason for Visit * Reason Comments Medication Refill Encounter Details Date Type Department Care Team (Late st Contact Info) Description 06/03/2023 Refill Allergy/Immunology, [place] [address] [place] [address] Tootie Simmons MD [address] [place] [address] Allergies Active Allergy Reactions Criticality Noted Date [...] for Cough. 30 Capsule 1 07/03/2021 Active Additional Information Patient not taking.Reported on 05/09/2023 D3-1000 25 MCG (1000 UT) Oral Capsule [...] Tablet 1 02/05/2023 02/05/20 24 Active Nystatin 674117 UNIT/ML Mouth/Throat SuspensionIndicatio ns:Thrush Swish and swallow [...] Active Additional Information Patient not taking.Reported on 05/24/2023 traMADol HCl 50 MG Oral Tablet (Ultram)Indications [...] days directed 12 Tablet 5 04/08/2023 Active Additional Information Patient not taking.Reported on 05/24/2023 Torsemide 100 MG Oral Tablet (Demadex)Indication s:Acute [...] 30 mL 2 06/04/2023 06/04/19 25 Active Azelastine HCl 0.1 % Nasal Solution (Astelin) ADMINISTER INTO NOSTRIL TWO SPRAYS IN THE MORNING AND TWO SPRAYS BEFORE BEDTIME 30 mL 2 03/06/2023 06/03/19 24 Discontinu ed(Refill) documented as of this encounter (statuses as of 06/04/2023) Active Problems Problem Noted Date Diagnosed Date Major depressive disorder, recurrent, moderate 0 04/03/2023 Last Assessment & Plan: Mood stable on current dose celexa Other persistent atrial fibrillation 04/03/2023 Last Assessment & Plan: Rate controlled Continue coumadin Atherosclerosis of [place] ronary artery without angina pectoris 04/03/2023 [...] IM/IV Chest Xray Additional Comments: Followed by circulation manager - Dr. Rashel Sales [facility] Closed nondisplaced fracture of left tibial tuberosity with routine healing 12/12/2021 Mild protein-calorie malnutrition 12/05/2021 Controlled substance agreement signed 12/05/2021 Hematoma of leg, left, subsequent encounter 09/2021 Overview: [facility] ER ulstrasound shows hematoma calf, INR [...] in the Comments) Remote Patient Monitoring Vendor: [facility] Device(s): Connected Scale Self - [...] & Plan: Symptoms well controlled on omeprazole assisted current use of anticoagulant therapy 0 05/10/2004 Overview: ICD-10 update of inactive term Rheumatic heart disease 03/05/2002 Old myocardial infarct 01/02/2001 Last Assessment & Plan: Continue Crestor 20 mg daily S/P mitral valve replacement Last Assessment & Plan: Chronic AC coumadin Atherosclerosis of [place] ronary artery of [place] heart without angina pectoris documented as of [...] Overview: Per CKD protocol #1 ORBIT-[employer] Research Other*[id number] 06/02/2010 04/18/2011 Overview: PROJECT: #[id number], SPONSOR: [employer], PI: Adolfo De Jesus MD [...] can be closed. CONTACT: Roberto Carlos Huertas, Single Pointed Operator Type 2 diabetes mellitus wit h hemoglobin A1c goal of less than 7.0% 04/24/2010 08/29/2018 Overview: ICD-10 update of inactive term ACTIVE CASE MANAGEMENT Kassie Anthony, RN [phone] 05/10/19 10 12/05/2009 ADVANCE DIRECTIVE INFORMATION 05/09/2009 [...] encounter Miscellaneous Notes * Telephone Encounter - Tootie Simmons MD - 06/04/2023 8:38 AM EDTSigned Prescriptions: Disp Refills Azelastine HCl 0.1 % Nasal Solution (Astel*30 mL 2 Sig: ADMINISTER INTO NOSTRIL TWO SPRAYS IN THE MORNING AND TWO SPRAYS BEFORE BEDTIME Authorizing Provider: TOOTIE SIMMONS * Telephone Encounter - Sumi Cortes OSA - 06/04/2023 8:35 AM EDTPending Prescriptions: Disp Refills Azelastine HCl 0.1 % Nasal Solution (Astel*30 mL 2 Sig: ADMINISTER INTO NOSTRIL TWO SPRAYS IN THE MORNING AND TWO SPRAYS BEFORE BEDTIME * Telephone Encounter - Sumi Cortes OSA - 06/04/2023 8:35 AM EDT Last Office Visit: 11/30/2022 Next Office Visit: 06/04/2023 documented in this encounter Plan of Treatment Upcoming Encounters Date Type Department Care Team (Late st Contact Info) Description 06/04/2023 1:30 PM EDT Office Visit Allergy/Immunology [facility] 200 [facility] [place] [address] Tootie Simmons MD 200 [facility] [place] [address] 06/07/2023 9:50 AM EDT Laboratory Laboratory, [facility] 132 [facility] [phone] [facility] 132 [place] [address] 06/07/2023 6:00 PM EDT Anticoagulation Pharmacy Call Center [address] [facility] [place] [address] Ccps, [facility] 58 60 [facility] [place] [address] 06/10/2023 12:20 PM EDT Office Visit Family Medicine [address] [place] [phone] Shara Ray MD [address] [place] [address] [place] [address] 06/11/2023 1:30 PM EDT Scheduled Telephone [facility], [facility] [address] [facility] [place] [address] Vee Santacruz, RDN [address] [facility] [place] [address] 06/20/2023 5:30 PM EDT Home Visit [facility], [facility] 132 [facility] [place] [address] Valentina Laws RN 132 [facility] [place] [address] 06/21/2023 8:00 AM EDT Laboratory Lab Mobile Phlebotomy [facility] [address], [place] [phone] [facility], [facility] Mobile Home Draw [address] [place] [address] 06/21/2023 2:30 PM EDT Office Visit Cardiology, [facility] 132 [facility] [place] [address] Hadley Molina MD 132 [facility] [place] [address] 06/24/2023 11:00 AM EDT Office Visit Hematology/Oncology [facility] 200 [facility] [place] [phone] Bouchra Del Cid CRNP 400 [facility] EDUARDOJOSÉ [place] [address] 07/04/2023 2:40 PM EDT Office Visit Nephrology [address] [place] [address] Aliyah Lacey MD 200 [facility] [place] [address] 08/05/2023 1:00 PM EDT Nurse Only Ancillary [address] [place] [address] Andriy, Nurse [address] [place] [address] 09/20/2023 8:00 AM EDT Laboratory Lab Mobile Phlebotomy [facility] [address] [place] [address] [facility], [facility] Mobile Home Draw [address] [place] [address] 09/24/2023 11:30 AM EDT Office Visit Nephrology, [facility] 200 [facility] [place] [address] ZemaitisKary PA-C [address] [place] [address] 12/20/2023 8:00 AM EDT Laboratory Lab Mobile Phlebotomy [facility] [address] [place] [address] [facility], [facility] Mobile Home Draw [address] [place] [address] 03/27/2024 8:00 AM EST Laboratory Lab Mobile Phlebotomy [facility] [address] [place] [address] [facility], [facility] Mobile Home Draw [address] [place] [address] Scheduled Procedures Name Priority Associated Diagnoses Date/Ti [...] Additional history exists CKD PHOS USE SMARTSET 71699 03/21/2024 02/0 02/2023, 12/19/2022, 11/28/2022, Additional history exists Albumin/Creatinine Ratio 05/06/2024 024, 12/03/2022, 02/05/2022, Additional history exists CKD HGB USE SMARTSET 22257 05/06/202405/06, 03/06/2023, 03/06/2023, Additional history exists O2 ASSESSMENT COMPLETED IN PAST YEAR FOR COPD 05/13/2024 05/14/2023 DTaP,Tdap,and Td Vaccines (3 - Td or [...] encounter Medical Devices Implanted Type Area Ground Control Approach Technician Device Identifier Shelf Expiration Date Model / Serial / Lot [place] Suture Biocomposite - Sn/A - [id number] Implanted:Qty: 2 on 12/13/2021 by Moris Jimenez, DO at [facility] Left: Leg Lower [employer] 07/18/2024 [id number] / N/A / [id number] Vitoss Bbtrauma Foam Pack - [id number] - [id number] Implanted:Qty: 1 on 12/13/2021 by Moris Jimenez, DO at [facility] Left: Leg Lower MICHA : TRAUMA 01/15/2022 / [id number] / [id number] documented as of this encounter Advance Directives Latest Code Status on File Code Status Date Activated Date Inactivated Comments Full Code 12/12/2021 7:18 PM 12/20/2021 6:08 PM This order reflects the patients wishes and were consensually agreed upon. Question Answer Comments Discussion of Advance Directives occurred with: Patient Care Teams Plate Stacker Hand Relationship Specialty Start Date End Date Shara Ray MD [address] [place] [address] [place] [address] PCP - General Family Medicine 03/08/23 documented as of this encounter
--- OUTSIDE RECORDS SUMMARY | 2023-07-10 16:49 | External Medical Summary | Summary of Care ---
Author Name Unknown Organization [facility] Address [address] [facility] [place] [address] Phone [phone] Care Team Providers Care Certified Technician Specialist Name Role Phone Shara Ray MD Primary Care Provide r Reason for Visit * Reason Onset Date Comments Advice 06/03/2023 Erik Perera Encounter Details Date Type Department Care Team (Late st Contact Info) Description 06/03/2023 Telephone Cardiology, [facility] [address] [place] [address] Hadley Molina MD [address] [place] [address] Advice (Jesse Perera) Allergies Active Allergy Reactions Criticality Noted Date [...] as of this encounter (statuses as of 06/03/2023) Medications Medication Sig Dispensed Refills Start Date [...] 200 Tablet 1 02/05/2023 4 Active Nystatin 546107 UNIT/ML Mouth/Throat SuspensionIndication s:Thrush Swish and swallow 5 mL in the morning and 5 mL at noon and 5 mL in the evening and 5 mL before bedtime. For thrush.. 240 mL 1 02/14/2023 Active Azelastine HCl 0.1 % Nasal Solution (Astelin) ADMINISTER INTO NOSTRIL TWO SPRAYS IN THE MORNING AND TWO SPRAYS BEFORE BEDTIME 30 mL 2 03/06/2023 5 Active Warfarin Sodium 2.5 MG Oral Tablet (Coumadin) Take 1 and 1/2 to 2 tablets by mouth daily as directed by [facility] 180 Tablet 3 03/06/2023 Active [...] 05/24/2023 traMADol HCl 50 MG Oral Tablet (Ultram)Indications: [...] on 05/24/2023 Torsemide 100 MG Oral Tablet (Demadex)Indications :Acute [...] A MEAL 90 Tablet 1 05/24/2023 Active documented as of this encounter (statuses as of 06/03/2023) Active Problems Problem Noted Date Diagnosed Date Major depressive disorder, recurrent, moderate 0 04/03/2023 Last Assessment & Plan: Mood stable on current dose celexa Other persistent atrial fibrillation 04/03/2023 Last Assessment & Plan: Rate controlled Continue coumadin Atherosclerosis of [place] co ronary artery without angina pectoris 04/03/2023 [...] IM/IV Chest Xray Additional Comments: Followed by transportation analyst - Dr. Rashel Sales [facility] Closed nondisplaced fracture of left tibial [...] Remote Patient Monitoring Vendor: [facility] Device(s): Connected Scale Self - [...] & Plan: Chronic AC coumadin Atherosclerosis of [place] co ronary artery of [place] heart without angina pectoris documented as of this encounter (statuses as of 06/03/2023) Resolved Problems Problem Noted Date Diagnosed Date [...] Overview: Per CKD protocol #1 ORBIT-AF Research Other*[id number] 06/02/2010 04/18/2011 Overview: PROJECT: #[id number], SPONSOR: [employer], PI: Adolfo De Jesus MD [...] can be closed. CONTACT: Roberto Carlos Huertas, Eyelet Machine Operator Type 2 diabetes mellitus wit [...] as of this encounter (statuses as of 06/03/2023) Immunizations Name Administration Dates Next Due COVID-19 [...] encounter Miscellaneous Notes * Telephone Encounter - Hadley Molina MD - 06/03/2023 2:59 PM EDT Patient may take metolazone 2.5 mg (one half 5 mg) once prior to next torsemide dose. BMP 1 week * Telephone Encounter - Elisha Gutierrez LPN - 06/03/2023 10:49 AM EDT Pt and caregiver, Moris, presented in person in clinic. Pt reported that her weight did not reduce even after the additional 50mg of torsemide. Weight today is 144. Asking if she needs any blood work completed prior to 06/21/23 appointment. * Telephone Encounter - Adelaide Woodward OSA - 06/03/2023 8:36 AM EDT Person calling: Moris Relationship to patient: acute care occupational therapist Number to return call: [phone] Reason for call: Moris calling requesting if Dr Molina can put in for BMP since pt levels are still rising Pharmacy: Provider Name: Dr Hadley Molina [facility]: Left message on Care Team voice mail Spoke to nurse desk and was told to tell pt that they will ask Dr Molina. Pt aware documented in this encounter Plan of Treatment Upcoming Encounters Date Type Department Care Team (Late st Contact Info) Description 06/03/2023 6:00 PM EDT Anticoagulation Pharmacy Call Center [address] [facility] [place] [address] Ccps, [facility] 58 60 [facility] [place] [address] 06/04/2023 1:30 PM EDT Office Visit Allergy/Immunology [employer] [address] [place] [address] Macario Pathak MD [address] [place] [address] 06/10/2023 12:20 PM EDT Office Visit Family Medicine [address] [phone] Shara Ray MD [address] [place] [address] [place] [address] 06/11/2023 1:30 PM EDT Scheduled Telephone [facility], [facility] [address] [place] [address] Vee Santacruz RDN [address] [place] [address] 06/20/2023 5:30 PM EDT Home Visit [facility], [facility] 132 [facility] [place] [address] Valentina Laws, RN 132 [facility] [place] [address] 06/21/2023 8:00 AM EDT Laboratory Lab Mobile Phlebotomy [facility] [address] [place] [address] [facility], [facility] Mobile Home Draw [address] [place] [address] 06/21/2023 2:30 PM EDT Office Visit Cardiology, [facility] 132 [place] [address] Hadley Molina MD 132 [place] [address] 06/24/2023 11:00 AM EDT Office Visit Hematology/Oncology [facility] 200 [facility] [place] [phone] Bouchra Del Cid CRNP [address] [place] [address] 07/04/2023 2:40 PM EDT Office Visit Nephrology [address] [place] [address] LaceyAliyah castillo MD 200 [facility] [place] [address] 08/05/2023 1:00 PM EDT Nurse Only Ancillary [address] [place] [address] [place], Nurse [address] [place] [address] 09/20/2023 8:00 AM EDT Laboratory Lab Mobile Phlebotomy [facility] [address] [place] [address] [facility], [facility] Mobile Home Draw [address] [place] [address] 09/24/2023 11:30 AM EDT Office Visit Nephrology, [facility] 200 [facility] [place], [place] [address] ZemaitisKary PA-C 200 [facility] [place], [place] [address] 12/20/2023 8:00 AM EDT Laboratory Lab Mobile Phlebotomy [facility] [address] [place] [address] [facility], [facility] Mobile Home Draw [address] [place] [address] 03/27/2024 8:00 AM EST Laboratory Lab Mobile Phlebotomy [facility] [address] [place] [address] [facility], [facility] Mobile Home Draw [address] [place] [address] Scheduled Procedures Name Priority Associated Diagnoses Date/Ti [...] Additional history exists CKD PHOS USE SMARTSET 60922 03/21/2024 02/0 02/2023, 12/19/2022, 11/28/2022, Additional history exists Albumin/Creatinine Ratio 05/06/2024 024, 12/03/2022, 02/05/2022, Additional history exists CKD HGB USE SMARTSET 27649 05/06/202405/06, 03/06/2023, 03/06/2023, Additional history exists O2 [...] this encounter Medical Devices Implanted Type Area Insurance Loss Assessor Device Identifier Shelf Expiration Date Model / Serial / Lot [place] Suture Biocomposite - Sn/A - [id number] Implanted:Qty: 2 on 12/13/2021 by Moris Jimenez, DO at [facility] Left: Leg Lower [employer] 07/18/2024 [id number] / N/A / [id number] Vitoss Bbtrauma Foam Pack - [id number] - [id number] Implanted:Qty: 1 on 12/13/2021 by Moris Jimenez, DO at [facility] Left: Leg Lower MICHA : TRAUMA 01/15/20221768-2130 / [id number] / [id number] documented as of this encounter Advance Directives Latest Code Status on File Code Status Date Activated Date Inactivated Comments Full Code 12/12/2021 7:18 PM 12/20/2021 6:08 PM This order reflects the patients wishes and were consensually agreed upon. Question Answer Comments Discussion of Advance Directives occurred with: Patient Care Teams Certified Technician Specialist Relationship Specialty Start Date End Date Shara Ray MD [address] [place] [address] [place] [address] PCP - General Family Medicine 03/08/23 documented as of this encounter
--- OUTSIDE RECORDS SUMMARY | 2023-07-10 16:49 | External Medical Summary | Summary of Care ---
Author Name Unknown Organization [facility] Address [address] [facility] [address] Phone [phone] Care Team Providers Care Insurance Counselor Name Role Phone Shara Ray MD Primary Care Provide r Reason for Visit * Reason Onset Date Comments Advice 06/03/2023 Erik Perera Encounter Details Date Type Department Care Team (Late st Contact Info) Description 06/03/2023 Telephone Cardiology, [facility] [address] [place] [address] Hadley Molina MD [address] [place] [address] Advice (Jesse Perera) Allergies Active Allergy Reactions [...] 200 Tablet 1 02/05/2023 4 Active Nystatin 928556 UNIT/ML Mouth/Throat SuspensionIndication s:Thrush Swish and swallow [...] tablets by mouth daily as directed by [facility] 180 Tablet 3 03/06/2023 Active [...] Plan: Rate controlled Continue coumadin Atherosclerosis of ramona co ronary artery without angina pectoris 04/03/2023 [...] IM/IV Chest Xray Additional Comments: Followed by outsole compressor - Dr[facility] Rashel Sales [facility] [...] in the Comments) Remote Patient Monitoring Vendor: [facility] Device(s): Connected Scale Self - Management [...] & Plan: Chronic AC coumadin Atherosclerosis of ramona co ronary artery of ramona heart without angina pectoris documented as of [...] Overview: Per CKD protocol #1 ORBIT-AF Research Other*[id number] 06/02/2010 04/18/2011 Overview: PROJECT: #[id number], SPONSOR: Geovanna&Geov[employer], PI: Adolfo De Jesus MD [...] can be closed. CONTACT: Roberto Carlos Huertas, Ground Surveillance Systems Operator Type 2 diabetes mellitus wit h [...] encounter Miscellaneous Notes * Addendum Note - Angelic Zhu CMA - 06/03/2023 4:21 PM EDTAddended by: ANGELIC ZHU on: 06/03/2023 04:21 PM Modules accepted: Orders * Telephone Encounter - Angelic Zhu CMA - 06/03/2023 4:12 PM EDT Spoke with Moris. Gave instructions from Dr. Molina. He verbalized understanding and agrees to plan of care. Will also send instructions via [employer] message per request. * Telephone Encounter - Hadley Molina MD [...] EDT Person calling: Moris Relationship to patient: urgent care physician assistant Number to return call: [phone] Reason for call: Moris calling requesting if [...] Upcoming Encounters Date Type Department Care Team (Latest Contact Info) Description 06/03/2023 6:00 PM EDT Anticoagulation Pharmacy Call Center 58[address] [facility] [place] [address] [facility] 58 60 [facility] [place] [address] care home current use of anticoagulant therapy*; History of TIA (transient ischemic attack); S/P mitral valve replacement 06/04/2023 1:30 PM EDT Office Visit Allergy/Immunology [facility] [place] [address] [place] [address] Macario Pathak MD [address] [place] [address] 06/07/2023 9:50 AM EDT Laboratory Laboratory, [facility] [place] 132 [facility] [place] [phone] Jeevan Chavez [address] [place] [address] 06/07/2023 6:00 PM EDT Anticoagulation Pharmacy Call Center WB 58-60 [facility] [place] [address] [facility], [facility] 58 60 [facility] Denia [place] [address] 06/10/2023 12:20 PM EDT Office Visit Family Medicine [address] [place] SteeleJ[place] [address] Shara Ray MD [address] [place] [address] [place] [address] 06/11/2023 1:30 PM EDT Scheduled Telephone [facility], [facility] [address] [facility] [place] [address] Vee Santacruz RDN [address] [facility] [place] [address] 06/20/2023 5:30 PM EDT Home Visit [facility], [facility] [address] [place] [address] Valentina Laws RN [address] [place] [address] 06/21/2023 8:00 AM EDT Laboratory Lab Mobile Ph[place]bot[place] [facility] [address] [place] [address] [facility], [facility] Mobile Home Draw [address] [place] [address] 06/21/2023 2:30 PM EDT Office Visit Cardiology, [facility] 132 [place] [address] Hadley Molina MD [address] [place] [address] 06/24/2023 11:00 AM EDT Office Visit Hematology/Oncolog y [employer] [address] [place] [phone] Bouchra Del Cid CRNP [address] [place] [address] 07/04/2023 2:40 PM EDT Office Visit Nephrology [address] [place] [address] Aliyah Lacey MD 200 [facility] [place] [address] 08/05/2023 1:00 PM EDT Nurse Only Ancillary [address] [place] [address] [place], Nurse Annual [address] [place] [address] 09/20/2023 8:00 AM EDT Laboratory Lab Mobile Phlebotomy [facility] [place] [address] [place] [address] [facility], [facility] Mobile Home Draw [address] [place] [address] 09/24/2023 11:30 AM EDT Office Visit Nephrology, [facility] 200 [facility] [place] [address] Kary Pena PA-C 200 [facility] [place] [address] 12/20/2023 8:00 AM EDT Laboratory Lab Mobile Phlebotomy [facility] [place] [address] [place] [address] [facility], l Mobile Home Draw [address] [place] [address] 03/27/2024 8:00 AM EST Laboratory Lab Mobile Phlebotomy [facility] [place] [address] [place] [address] [facility], [facility] Mobile Home Draw [address] [place] [address] Scheduled Orders Name Type Priority Associated Diagnoses Orde r Schedule BASIC METABOLIC PANEL Lab Routine Chronic diastolic congestive heart failure (HCC) Permanent atrial fibrillation (HCC) S/P mitral valve replacement Expected: 06/03/2023, Expires: 06/02/2024 Scheduled Procedures Name Priority Associated Diagnoses Date/Ti [...] Additional history exists CKD PHOS USE SMARTSET 02952 03/21/2024 02/0 02/2023, 12/19/2022, 11/28/2022, Additional history exists Albumin/Creatinine Ratio 05/06/2024 032 024, 12/03/2022, 02/05/2022, Additional history exists CKD HGB USE SMARTSET 51955 05/06/202405/06, 03/06/2023, 03/06/2023, Additional history exists O2 [...] this encounter Medical Devices Implanted Type Area [place] Fishing Crew Member Device Identifier Shelf Expiration Date Model / Serial / Lot Adair Suture Biocomposite - Sn/A - [id number] Implanted:Qty: 2 on 12/13/2021 by Moris Jimenez DO at OR [facility] Left: Leg Lower [employer] 07/18/2024 [id number]-[id number] / N/A / [id number] Vitoss Bbtrauma Foam Pack - [id number] - [id number] Implanted:Qty: 1 on 12/13/2021 by Moris Jimenez DO at OR [facility] Left: Leg Lower MICHA : TRAUMA 01/15/2022 [id number] / [id number] / [id number] documented as of this encounter Visit Diagnoses Diagnosis analog device designer current use of anticoagulant therapy- Primary History of TIA (transient ischemic attack) Transient ischemic attack (TIA), and cerebral infarction without residual deficits S/P mitral valve replacement Heart valve replaced by other means Chronic diastolic congestive heart failure (HCC)- Primary Chronic diastolic heart failure Permanent atrial fibrillation [...] Advance Directives occurred with: Patient Care Teams Insurance Counselor Relationship Specialty Start Date End Date Shara Ray MD [address] [place] [address] [place] [address] PCP - General Family Medicine 03/08/23 documented as of this encounter
--- OUTSIDE RECORDS SUMMARY | 2023-07-10 16:49 | External Medical Summary | Summary of Care ---
Author Name Unknown Organization [facility] Address [address] [facility] [place] [address] Phone [phone] Care Team Providers Care Care Process Manager Name Role Phone Shara Ray MD Primary Care Provide r Reason for Visit * Reason Comments Dosage Adjustment Via Phone (anticoag Cl inic) Encounter Details Date Type Department Care Team (Latest Contact Info) Description 06/03/2023 6:00 PM EDT Anticoagulation Pharmacy Call Center [address] [place] [address] [facility] [address] [place] [address] snf current use of anticoagulant therapy*; History of [...] 200 Tablet 1 02/05/2023 4 Active Nystatin 941857 UNIT/ML Mouth/Throat SuspensionIndication s:Thrush Swish and swallow [...] tablets [facility] 180 Tablet 3 03/06/2023 Active Nitroglycerin [...] IM/IV Chest Xray Additional Comments: 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 Rashel Sales [facility] Closed [...] in the Comments) Remote Patient Monitoring Vendor: [facility] Device(s): Connected Scale Self - Management Plan [...] & Plan: Symptoms well controlled on omeprazole snf current use of anticoagulant therapy 0 05/10/2004 [...] Overview: Per CKD protocol #1 ORBIT-AF Research Other*[id number] 06/02/2010 04/18/2011 Overview: PROJECT: #[id number], SPONSOR: [employer], PI: Adolfo De Jesus MD [...] can be closed. CONTACT: Roberto Carlos Huertas, Cotton Grower Type 2 diabetes mellitus wit h hemoglobin [...] Progress Notes * Kirby Gates RPh - 06/03/2023 3:08 PM EDT Medication Therapy Disease Management - Anticoagulation Patient: Abdihilaria Bowling | : 1955 Subjective Contacts Type Contact Phone/Fax 06/03/2023 03:11 PM EDT Phone (Outgoing) Abdi Bowling (Self) [phone] (M) Spoke to Patient Patient-Reported Symptoms: Patient Findings Negatives: Signs/symptoms of thrombosis, Signs/symptoms of bleeding, Change in health, Change in alcohol use, Change in activity, Upcoming invasive procedure, Missed doses, Extra doses, Change in medications, Change in diet/appetite, Bruising Objective Current Warfarin Dose As of 06/03/2023 Warfarin maintenance plan: 5 mg (2.5 mg x 2) every day INR Result As of 06/03/2023 INR goal: 3.0-3.5 INR used for dosin.4 (06/03/2023) Assessment & Plan Warfarin Plan As of 06/03/2023 Full warfarin instructions: 5 mg every day No change documented: Kirby Gates [facility] Next INR check: 06/07/2023 Repeat PT/INR in 4 day(s) at [facility] Weekly dose: not changed Additional Dosing Information: Description GML WedFri, prefers Wed ([facility], [facility], or [facility]) Please also send myG Kirby Gates RPh Clinical Pharmacist 06/03/2023, 3:08 PM documented in this encounter Plan of Treatment Upcoming Encounters Date Type Department Care Team (Late st Contact Info) Description 06/04/2023 1:30 PM EDT Office Visit Allergy/Immunology [facility] 200 [place] [address] Macario Pathak MD 200 [place] [address] 06/07/2023 9:50 AM EDT Laboratory Laboratory, [facility] 132 [place] [address] [facility] 132 [place] [address] 06/07/2023 6:00 PM EDT Psychiatric Hospital Pharmacy Call Center [address] [place] [address] [facility] 58 60 [facility] [place] [address] 06/10/2023 12:20 PM EDT Office Visit Family Medicine [address] [phone] Shara Ray MD [facility] [address] 06/11/2023 1:30 PM EDT Scheduled Telephone [facility], [facility] [address] [facility] [place] [address] Vee Santacruz, RASHAUN [address] [facility] [place] [address] 06/20/2023 5:30 PM EDT Home Visit [facility], [facility] [address] [place] [address] Valentina Laws, RN [address] [place] [address] 06/21/2023 8:00 AM EDT Laboratory Lab [place]omy [facility] [address] [place] [address] [facility], [facility] Mobile Home Draw [address] [place] [address] 06/21/2023 2:30 PM EDT Office Visit Cardiology, [facility] [place] [address] Hadley Molina MD 132 [facility] [place] [address] 06/24/2023 11:00 AM EDT Office Visit Hematology/Oncology [facility] [place] 200 [facility] [place] [address] Bouchra Del Cid CRNP 400 [place] [address] 07/04/2023 2:40 PM EDT Office Visit Nephrology [address] [place] [address] Aliyah Lacey MD 200 [facility] [place] [address] 08/05/2023 1:00 PM EDT Nurse Only Ancillary [address] [place] [address] [place], Nurse [address] [place] [address] 09/20/2023 8:00 AM EDT Laboratory Lab Mobile Phlebotomy [facility] [address] [place] [address] [facility], [facility] Mobile Home Draw [address] [place] [address] 09/24/2023 11:30 AM EDT Office Visit Nephrology, [facility] 200 [place] [address] ZemaitisKary PA-C 200 [place] [address] 12/20/2023 8:00 AM EDT Laboratory Lab Mobile Phlebotomy [facility] [address] [place] [address] [facility], [facility] Mobile Home Draw [address] [place] [address] 03/27/2024 8:00 AM EST Laboratory Lab Mobile Phlebotomy [facility] [address] [place] [address] [facility], [facility] Mobile Home Draw [address] [place] [address] Scheduled Procedures Name Priority Associated Diagnoses Date/Ti [...] Additional history exists CKD PHOS USE SMARTSET 08918 03/21/2024 02/0 02/2023, 12/19/2022, 11/28/2022, Additional history exists Albumin/Creatinine Ratio 05/06/2024 024, 12/03/2022, 02/05/2022, Additional history exists CKD HGB USE SMARTSET 64654 05/06/202405/06, 03/06/2023, 03/06/2023, Additional history exists O2 [...] this encounter Medical Devices Implanted Type Area Illustrator Set Device Identifier Shelf Expiration Date Model / Serial / Lot Davison Suture Biocomposite - Sn/A - [id number] Implanted:Qty: 2 on 12/13/2021 by Moris Jimenez, at OR [facility] Left: Leg Lower [employer] 07/18/2024 AR-2324BCC / N/A / [id number] Vitoss Bbtrauma Foam Pack - [id number] - [id number] Implanted:Qty: 1 on 12/13/2021 by Moris Jimenez DO at OR [facility] Left: Leg Lower MICHA : TRAUMA 01/15/2022 [id number] / [id number] / [id number] documented as of this encounter Visit Diagnoses Diagnosis snf current use of anticoagulant therapy- Primary History [...] Advance Directives occurred with: Patient Care Teams Care Process Manager Relationship Specialty Start Date End Date Shara Ray MD [address] [place] [address] [place] [address] PCP - General Family Medicine 03/08/23 documented as of this encounter
--- OUTSIDE RECORDS SUMMARY | 2023-07-10 16:50 | External Medical Summary | Summary of Care ---
Author Name Unknown Organization [facility] Address [address] [facility] [place] [address] Phone [phone] Care Team Providers Care Thread Spooler Name Role Phone Shara Ray MD Primary Care Provide r Reason for Visit * Reason Onset Date Comments Advice 06/03/2023 Erik Perera Encounter Details Date Type Department Care Team (Late st Contact Info) Description 06/03/2023 Telephone Cardiology, [facility] [address] [place] [address] Hadley Molina MD [address] [place] [address] Advice (Jesse Perera) Allergies Active Allergy Reactions [...] 200 Tablet 1 02/05/2023 4 Active Nystatin 999142 UNIT/ML Mouth/Throat SuspensionIndication s:Thrush Swish and swallow [...] tablets by mouth daily as [facility] 180 Tablet 3 03/06/2023 [...] Plan: Rate controlled Continue coumadin 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 CONTACT: Roberto Carlos Huertas, Fusing Machine Operator Type 2 diabetes mellitus wit [...] encounter Miscellaneous Notes * Telephone Encounter - Elisha Gutierrez LPN [...] EDT Person calling: Moris Relationship to patient: rn medicare Number to return call: [phone] Reason for call: Moris calling requesting if [...] EDT Anticoagulation Pharmacy Call Center WB [address]60 [facility] [place] [address] [facility], [facility] 58 60 [facility] [place] [address] 06/04/2023 1:30 PM EDT Office Visit Allergy/Immunology [facility] [place] 200 [facility] [place] [address] Macario Pathak MD [address] [place] [address] 06/10/2023 12:20 PM EDT Office Visit Family Medicine [address] [address] Shara Ray MD [address] [place] [address] [place] [address] 06/11/2023 1:30 PM EDT Scheduled Telephone [facility], [facility] [address] [facility] [place] [address] Vee Santacruz RDN [address] [facility] [place] [address] 06/20/2023 5:30 PM EDT Home Visit [facility], [facility] 132 [facility] [place] [address] Valentina Laws, TANISHA 132 [facility] [place] [address] 06/21/2023 8:00 AM EDT Laboratory Lab Mobile Phlebotomy [facility] [address] [place] [address] [facility] Mobile Home Draw [address] [place], [place] [address] 06/21/2023 2:30 PM EDT Office Visit Cardiology, [facility] [address] [place] [address] Hadley Molina MD [address] [place] [address] 06/24/2023 11:00 AM EDT Office Visit Hematology/Oncology [facility] [place] [address] [place] [phone] Bouchra Del Cid CRNP 400 [place] [address] 07/04/2023 2:40 PM EDT Office Visit Nephrology [address] [place] [address] Aliyah Lacey MD 200 [facility] [place] [address] 08/05/2023 1:00 PM EDT Nurse Only Ancillary [address] [place] [address] [place], Nurse [address] [place] [address] 09/20/2023 8:00 AM EDT Laboratory Lab Mobile Phlebotomy [facility] [address] [place] [address] [facility] Mobile Home Draw [address] [place] [address] 09/24/2023 11:30 AM EDT Office Visit Nephrology, [facility] 200 [facility] [place] [address] Kary Pena PA-C 200 [facility] [place] [address] 12/20/2023 8:00 AM EDT Laboratory Lab Mobile Phlebotomy [facility] [address] [place] [address] [facility] Mobile Home Draw [address] [place] [address] 03/27/2024 8:00 AM EST Laboratory Lab Mobile Phlebotomy [facility] [address] [place] [address] [facility], [facility] Mobile Home Draw [address] [place] [address] Scheduled Procedures Name Priority Associated Diagnoses Date/Ti [...] Additional history exists CKD PHOS USE SMARTSET 11683 03/21/2024 02/0 02/2023, 12/19/2022, 11/28/2022, Additional history exists Albumin/Creatinine Ratio 05/06/20242 024, 12/03/2022, 02/05/2022, Additional history exists CKD HGB USE SMARTSET 01553 05/06/202405/06, 03/06/2023, 03/06/2023, Additional history exists O2 [...] this encounter Medical Devices Implanted Type Area Photo Checker And Assembler Device Identifier Shelf Expiration Date Model / Serial / Lot [place] Suture Biocomposite - Sn/A - [id number] Implanted:Qty: 2 on 12/13/2021 by Moris Jimenez DO at OR [facility] Left: Leg Lower [employer] 07/18/2024 AR-2324BCC / N/A / [id number] Vitoss Bbtrauma Foam Pack - [id number] - [id number] Implanted:Qty: 1 on 12/13/2021 by Moris Jimenez DO at OR [facility] Left: Leg Lower MICHA : TRAUMA 01/15/[id number] / [id number] / [id number] documented as of this encounter Advance Directives Latest Code Status on File Code Status Date Activated Date Inactivated Comments Full Code 12/12/2021 7:18 PM 12/20/2021 6:08 PM This order reflects the patients wishes and were consensually agreed upon. Question Answer Comments Discussion of Advance Directives occurred with: Patient Care Teams Thread Spooler Relationship Specialty Start Date End Date Shara Ray MD [address] [place] [address] [place] [address] PCP - General Family Medicine 03/08/23 documented as of this encounter
--- OUTSIDE RECORDS SUMMARY | 2023-07-10 16:50 | External Medical Summary | Summary of Care ---
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 Name Role Phone Shara Ray MD Primary Care Provide r Reason for Visit * Reason Comments Outpatient Testing Encounter Details Date Type Department Care Team (Late st Contact Info) Description 06/03/2023 10:00 AM EDT Laboratory Laboratory, [facility] 132 [facility] [place] [phone] [facility] 132 [facility] [place] [address] manager terminal current use of anticoagulant therapy; History of TIA (transient ischemic attack); S/P mitral valve replacement; Permanent atrial fibrillation (HCC) Allergies Active Allergy [...] 200 Tablet 1 02/05/2023 4 Active Nystatin 228773 UNIT/ML Mouth/Throat SuspensionIndication s:Thrush Swish and swallow [...] tablets by mouth daily [facility] 180 Tablet 3 03/06/2023 Active Nitroglycerin [...] MEAL 90 Tablet 1 05/24/2023 5 Active documented as of this encounter (statuses as of 06/03/2023) Active Problems Problem Noted Date Diagnosed Date Major depressive disorder, recurrent, moderate 0 04/03/2023 Last Assessment & Plan: Mood stable on current dose celexa Other persistent atrial fibrillation 04/03/2023 Last Assessment & Plan: Rate controlled Continue coumadin Atherosclerosis of [place] co ronary artery without angina pectoris 04/03/2023 [...] IM/IV Chest Xray Additional Comments: Followed by glazier artist - Dr. Rashel Sales [facility] Closed nondisplaced fracture of left tibial tuberosity with routine healing 12/12/2021 Mild protein-calorie malnutrition 12/05/2021 Controlled substance agreement signed 12/05/2021 Hematoma of leg, left, subsequent encounter 09/2021 Overview: [facility] ER ulstrasound shows hematoma calf, INR 4.2, [...] & Plan: Symptoms well controlled on omeprazole manager terminal current use of anticoagulant therapy 0 05/10/2004 Overview: ICD-10 update of inactive term Rheumatic heart disease 03/05/2002 Old myocardial infarct 01/02/2001 Last Assessment & Plan: Continue Crestor 20 mg daily S/P mitral valve replacement Last Assessment & Plan: Chronic AC coumadin Atherosclerosis of [place] co ronary artery of [place] heart without angina pectoris documented as of [...] Overview: Per CKD protocol #1 [employer] Other*[id number] 06/02/2010 04/18/2011 Overview: PROJECT: #[id number], SPONSOR: Aileen, PI: Adolfo De Jesus MD [...] can be closed. CONTACT: Roberto Carlos Huertas, Tutoring Manager Type 2 diabetes mellitus wit h hemoglobin [...] PM EDT Anticoagulation Pharmacy Call Center [address] [place] [address] C[facility]ps, [facility] 58 60 [place] [address] 06/04/2023 1:30 PM EDT Office Visit Allergy/Immunology [facility] [place] 200 [facility] [place] [address] Macario Pathak MD 200 [facility] [place] [address] 06/10/2023 12:20 PM EDT Office Visit Family Medicine [facility] [address] [place] [phone] Shara Ray MD [address] [place] [address] [place] [address] 06/11/2023 1:30 PM EDT Scheduled Telephone [facility], [facility] [address] [place] [address] Vee Santacruz, KOSTAN [address] [facility] [place] [address] 06/20/2023 5:30 PM EDT Home Visit [facility], [facility] [address] [facility] [place] [address] Valentina Laws, TANISHA [facility] [place] [address] 06/21/2023 8:00 AM EDT Laboratory Lab Mobile Phlebotomy [facility] [address] [place] [address] [facility], [facility] Mobile Home Draw [address] [place] [address] 06/21/2023 2:30 PM EDT Office Visit Cardiology, [facility] 132 [facility] [place] [address] Hadley Molina MD 132 [facility] [place] [address] 06/24/2023 11:00 AM EDT Office Visit Hematology/Oncology [facility] 200 [facility] [place] [phone] Bouchra Del Cid CRNP 400 [facility] [place] [address] 07/04/2023 2:40 PM EDT Office Visit Nephrology [address] [place] [address] Aliyah Lacey MD 200 [facility] [place] [address] 08/05/2023 1:00 PM EDT Nurse Only Ancillary [address] [place] [address] Andriy, Nurse [address] [place] [address] 09/20/2023 8:00 AM EDT Laboratory Lab Mobile Phlebotomy [facility] [address] [place] [address] [facility], [facility] Mobile Home Draw [address] [place] [address] 09/24/2023 11:30 AM EDT Office Visit Nephrology, [facility] 200 [facility] [place] [address] ZeKary bliss PA-C [address] [facility] [address] [place] [address] 12/20/2023 8:00 AM EDT Laboratory Lab Mobile Phlebotomy [facility] [address] [place] [address] [facility], [facility] Mobile Home Draw [address] [place] [address] 03/27/2024 8:00 AM EST Laboratory Lab Mobile Phlebotomy [facility] [address] [place] [address] [facility], [facility] Mobile Home Draw [address] [place] [address] Pending Results Name Type Priority Associated Diagnoses Date /Time PT INR Lab Routine nursing home current use of anticoagulant therapy History of TIA (transient ischemic attack) S/P mitral valve replacement Permanent atrial fibrillation (HCC) 06/03/2023 10:40 AM EDT Scheduled Procedures Name Priority Associated [...] Additional history exists CKD PHOS USE SMARTSET 61205 03/21/2024 02/0 02/2023, 12/19/2022, 11/28/2022, Additional history exists Albumin/Creatinine Ratio 05/06/2024 024, 12/03/2022, 02/05/2022, Additional history exists CKD HGB USE SMARTSET 54135 05/06/202405/06, 03/06/2023, 03/06/2023, Additional history exists O2 [...] this encounter Medical Devices Implanted Type Area Proof Coins Inspector Device Identifier Shelf Expiration Date Model / Serial / Lot Blanco Suture Biocomposite - Sn/A - [id number] Implanted:Qty: 2 on 12/13/2021 by Moris Jimenez, DO at OR [facility] Left: Leg Lower [employer] 07/18/2024 [id number] / N/A / [id number] Vitoss Bbtrauma Foam Pack - [id number] - [id number] Implanted:Qty: 1 on 12/13/2021 by Moris Jimenez, DO at OR [facility] Left: Leg Lower MICHA : TRAUMA 01/15/2022 / [id number] / [id number] documented as of this encounter Visit Diagnoses Diagnosis nursing home current use of anticoagulant therapy History [...] Advance Directives occurred with: Patient Care Teams Grass Farm Laborer Relationship Specialty Start Date End Date Shara Ray MD [address] [place] [address] [place] [phone] PCP - General Family Medicine 03/08/23 documented as of this encounter
--- OUTSIDE RECORDS SUMMARY | 2023-07-10 16:50 | External Medical Summary | Summary of Care ---
Author Name Unknown Organization [facility] Address [address] [facility] [place] [address] Phone [phone] Care Team Providers Care Accounts Receivable Manager Name Role Phone Shara Ray MD Primary Care Provide r Reason for Visit * Reason Onset Date Comments Advice 06/03/2023 Erik ePrera Encounter Details Date Type Department Care Team (Late st Contact Info) Description 06/03/2023 Telephone Cardiology, [facility] [address] [place] [address] Hadley Molina MD [address] [place] [address] Advice (Jesse Perera) Allergies Active Allergy Reactions [...] 200 Tablet 1 02/05/2023 4 Active Nystatin 277831 UNIT/ML Mouth/Throat SuspensionIndication s:Thrush Swish and swallow [...] tablets by mouth daily as directed by [facility] 180 Tablet 3 03/06/2023 Active [...] Plan: Rate controlled Continue coumadin Atherosclerosis of [place] co ronary artery without angina pectoris 04/03/2023 [...] IM/IV Chest Xray Additional Comments: Followed by manufacturing quality inspector - Dr. Rashel Sales [facility] Closed nondisplaced fracture of left tibial tuberosity with routine healing 12/12/2021 Mild protein-calorie malnutrition 12/05/2021 Controlled substance agreement signed 12/05/2021 Hematoma of leg, left, subsequent encounter 09/2021 Overview: [facility] ER ulstrasound shows hematoma calf, INR 4.2, [...] in the Comments) Remote Patient Monitoring Vendor: [facility] Device(s): Connected Scale Self - Management [...] & Plan: Symptoms well controlled on omeprazole marketing specialist current use of anticoagulant therapy 0 05/10/2004 Overview: ICD-10 update of inactive term Rheumatic heart disease 03/05/2002 Old myocardial infarct 01/02/2001 Last Assessment & Plan: Continue Crestor 20 mg daily S/P mitral valve replacement Last Assessment & Plan: Chronic AC coumadin Atherosclerosis of [place] co ronary artery of [place] heart without angina pectoris documented as of [...] Overview: Per CKD protocol #1 [employer]BIT-[employer] Research Other*[id number] 06/02/2010 04/18/2011 Overview: PROJECT: #[id number], SPONSOR: Geovanna&Geovanna, PI: Adolfo De Jesus MD [...] can be closed. CONTACT: Roberto Carlos Huertas, Road Machine Operator Type 2 diabetes mellitus wit [...] encounter Miscellaneous Notes * Telephone Encounter - Adelaide Woodward OSA - 06/03/2023 8:36 AM EDT Person calling: Moris Relationship to patient: care team coordinator scheduler Number to return call: [phone] Reason for call: Moris calling requesting if [...] Description 06/03/2023 10:00 AM EDT [facility] [address] [place] [phone] Jeevan Chavez 132 [place] [address] 06/03/2023 6:00 PM EDT Anticoagulation Pharmacy Call Center [address] [facility] [place] [address] [facility] 58 60 [facility] [place] [address] 06/04/2023 1:30 PM EDT Office Visit Allergy/Immunology [facility] [address] [place] [address] Macario Pathak MD [address] [place] [address] 06/10/2023 12:20 PM EDT Office Visit Family Medicine [address] [phone] Shara Ray MD [address] [place] [address] [place] [address] 06/11/2023 1:30 PM EDT Scheduled Telephone [facility], [facility] [address] [facility] [place] [address] Vee Santacruz RDN 1000 [address] [facility] [place] [address] 06/20/2023 5:30 PM EDT Home Visit [facility], [facility] 132 [facility] [place] [address] Valentina Laws RN 132 [facility] [address] 06/21/2023 8:00 AM EDT Laboratory Lab Mobile Phlebotomy [facility] [address] [place] [address] [facility], [facility] Mobile Home Draw [address] [place], [place] [address] 06/21/2023 2:30 PM EDT Office Visit Cardiology, [facility] [place] [address] Hadley Molina MD [address] [facility] [place] [address] 06/24/2023 11:00 AM EDT Office Visit Hematology/Oncology [facility] [place] [address] [place] [phone] Bouchra Del Cid CRNP 400 [place] [address] 07/04/2023 2:40 PM EDT Office Visit Nephrology [address] [place] [address] Aliyah Lacey MD 200 [facility] [place] [address] 08/05/2023 1:00 PM EDT Nurse Only Ancillary [address] [place] [address] [place], Nurse [address] [place] [address] 09/20/2023 8:00 AM EDT Laboratory Lab Mobile Phlebotomy [facility] [address] [place] [address] [facility], [facility] Mobile Home Draw [address] [place] [address] 09/24/2023 11:30 AM EDT Office Visit Nephrology, [facility] 200 [facility] [place] [address] Kary Pena PA-C 200 [facility] [place] [address] 12/20/2023 8:00 AM EDT Laboratory Lab Mobile Phlebotomy [facility] [address] [place] [address] [facility], [facility] Mobile Home Draw [address] [place] [address] 03/27/2024 8:00 AM EST Laboratory Lab Mobile Phlebotomy [facility] [address] [place] [address] [facility], [facility] Mobile Home Draw [address] [place] [address] Scheduled Procedures Name Priority Associated Diagnoses Date/Ti [...] Additional history exists CKD PHOS USE SMARTSET 36576 03/21/2024 02/0 02/2023, 12/19/2022, 11/28/2022, Additional history exists Albumin/Creatinine Ratio 05/06/2024 024, 12/03/2022, 02/05/2022, Additional history exists CKD HGB USE SMARTSET 43724 05/06/202405/06, 03/06/2023, 03/06/2023, Additional history exists O2 [...] this encounter Medical Devices Implanted Type Area Fashion Styling Intern Device Identifier Shelf Expiration Date Model / Serial / Lot [place] Suture Biocomposite - Sn/A - [id number] Implanted:Qty: 2 on 12/13/2021 by Moris Jimenez DO at OR [facility] Left: Leg Lower [employer] 07/18/2024 AR-[id number] / N/A / [id number] Vitoss Bbtrauma Foam Pack - [id number] - [id number] Implanted:Qty: 1 on 12/13/2021 by Moris Jimenez DO at OR [facility] Left: Leg Lower MICHA : TRAUMA 01/15/20227444-3340 / [id number] / [id number] documented as of this encounter Advance Directives Latest Code Status on File Code Status Date Activated Date Inactivated Comments Full Code 12/12/2021 7:18 PM 12/20/2021 6:08 PM This order reflects the patients wishes and were consensually agreed upon. Question Answer Comments Discussion of Advance Directives occurred with: Patient Care Teams Accounts Receivable Manager Relationship Specialty Start Date End Date Shara Ray MD [address] [place] [address] [place] [address] PCP - General Family Medicine 03/08/23 documented as of this encounter
--- OUTSIDE RECORDS SUMMARY | 2023-07-10 16:50 | External Medical Summary ---
Author Name Unknown Address Unknown Organization K0[facility] [place] [address] [place] [address] Laboratory Report Ordering Provider Test Date Status SONIA PANTOJA 06/03/2023 10:40:27 Final Standing order for pt/inr. < br/>Please draw pt/inr every 1 to 4 weeks as requested.
Results to [facility]

Warfarin Therapy
INR: 2.0-3.0 conventional anticoagulation
INR: 2.5-3.5 high intensity anticoagulation Observation Date Value Abnormality Reference (Units ) Status PT 06/03/2023 10:40:27 35.0 Above high normal 11 .6-15.2 (seconds) Final INR 06/03/2023 10:40:27 3.4 Above high normal 0. 8-1.2 Final Performing Location [facility] [address] [place] [address]
--- OUTSIDE RECORDS SUMMARY | 2023-07-10 16:50 | External Medical Summary | Summary of Care ---
Author Name Unknown Organization [facility] Address [address] [place] [address] Phone [phone] Care Team Providers Care Reaming Press Operator Name Role Phone Shara Ray MD Primary Care Provide r Encounter Details Date Type Department Care Team (Latest Contact Info) Description 06/03/2023 Medication Management [facility] [address] [place], [place] [id number] Rosmery Underwood CPhT Referred for management of medication therapy* Allergies Active Allergy Reactions Criticality Noted Date [...] 200 Tablet 1 02/05/2023 4 Active Nystatin 633008 UNIT/ML Mouth/Throat SuspensionIndication s:Thrush Swish and swallow [...] Plan: Rate controlled Continue coumadin Atherosclerosis of enterprise co ronary artery without angina pectoris 04/03/2023 [...] IM/IV Chest Xray Additional Comments: Followed by actuarial consultant - Dr. 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 use of anticoagulant therapy 0 05/10/2004 Overview: ICD-10 update of inactive term Rheumatic heart disease 03/05/2002 Old myocardial infarct 01/02/2001 Last Assessment & Plan: Continue Crestor 20 mg daily S/P mitral valve replacement Last Assessment & Plan: Chronic AC coumadin Atherosclerosis of enterprise co ronary artery of enterprise heart without angina pectoris documented as of this encounter (statuses as of 06/03/2023) Resolved Problems Problem Noted Date Diagnosed Date Resolved Date Complicated UTI (urinary tract infection) 12/20/2021 05/17/2022 Chronic obstructive pulmonary disease 08/21/2021 08/30/2022 Overview: Per COPD GOLD Classification Last Assessment & Plan: No SOB. O2 stable on RA Continue DuMurali Chronic diastolic CHF (conge stive heart failure) [...] Overview: Per CKD protocol #1 ORBIT-AF Research Other*[id number] 06/02/2010 04/18/2011 Overview: PROJECT: #[id number], SPONSOR: Geovanna&Geovanna, PI: Adolfo De Jesus MD [...] can be closed. CONTACT: Roberto Carlos Huertas, Clock Maker Type 2 diabetes mellitus wit h [...] MCG/0.3 mL, 12 YRS AND ABOVE, IM (1calendar-Comirnat) 12/03/2022 COVID-19, mRNA, LNP-s, PF, B ooster, [...] as of this encounter Progress Notes * Rosmery Underwood CPhT - 06/03/2023 10:51 AM EDT Abdi Bowling is a 67 year old female. TMR Interventions Incomplete Medication Therapy Recommendations No medication therapy recommendations to display Completed Medication Therapy Recommendations Referred for management of medication therapy Current Medication: Combivent Respimat 20-100 MCG/ACT Inhalation Aerosol Solution (Ipratropium-Albuterol) Rationale: Patient Education Recommendation: Provide Education Note: TMR for maintenance inhaler addressed during CMR Current Medication: Warfarin Sodium 2.5 MG Oral Tablet (Coumadin) Rationale: Medication requires monitoring Recommendation: Provide Education Note: TMR for warfarin addressed during CMR Current Medication: traMADol HCl 50 MG Oral Tablet (Ultram) Rationale: Patient Education Recommendation: Provide Education Note: TMR for opioid therapy addressed during CMR Assessment & Plan Indication, effectiveness, safety and convenience of her medications were reviewed today. The patient's medical conditions were assessed, evaluated, and deemed meeting goals of drug therapy, with thefollowing exceptions. Additional Notes: Maintenance inhaler discussed during CMR, pt denies issues, does not miss doses, continue therapy without changes. Opioid therapy discussed during CMR, pt denies issues continue therapy without changes. Warfarin discussed during CMR, monitored by anti-coag dept, continue therapy without changes. Rosmery Underwood CPhT 06/03/2023, 10:51 AM documented in this encounter Plan of Treatment Upcoming Encounters Date Type Department Care Team (Late st Contact Info) Description 06/03/2023 6:00 PM EDT Anticoagulation Pharmacy Call Center WB [address] [facility] [place] [address] Ccps, [facility] [address] [facility] [place] [address] 06/04/2023 1:30 PM EDT Office Visit Allergy/Immunology [facility] [place] [address] [place] [address] Macario Pathak MD [address] [place] [address] 06/10/2023 12:20 PM EDT Office Visit Family Medicine [address] [phone] Shara Ray MD [address] [place] [address] [place] [address] 06/11/2023 1:30 PM EDT Scheduled Telephone [facility], [facility] [address] [facility] [place] [address] Vee Santacruz RDN [address] [facility] [place] [address] 06/20/2023 5:30 PM EDT Home Visit [facility], [facility] 132 [place] [address] Valentina Laws, RN 132 [facility] [place] [address] 06/21/2023 8:00 AM EDT Laboratory Lab Mobile Phlebotomy [facility] [address] [place] [address] [facility] [place] [place], [facility] Mobile Home Draw [address] [place] [address] 06/21/2023 2:30 PM EDT Office Visit Cardiology, [facility] [address] [place] [address] Hadley Molina MD [address] [place] [address] 06/24/2023 11:00 AM EDT Office Visit Hematology/Oncology [facility] [address] [place] [phone] Bouchra Del Cid CRNP 400 [facility] [place] [address] 07/04/2023 2:40 PM EDT Office Visit Nephrology [address] [place] [address] Aliyah Lacey MD 200 [facility] [place] [address] 08/05/2023 1:00 PM EDT Nurse Only Ancillary [address] [place] [address] [place], Nurse [address] [place] [address] 09/20/2023 8:00 AM EDT Laboratory Lab Mobile Phlebotomy [facility] [place] [address] [place] [address] [facility] [place] [place], [facility] Mobile Home Draw [address] [place] [address] 09/24/2023 11:30 AM EDT Office Visit Nephrology, [facility] [address] [facility] [place] [address] Kary Pena PA-C 200 [facility] [place] [address] 12/20/2023 8:00 AM EDT Laboratory Lab Mobile Phlebotomy [facility] [place] [address] [place] [address] [facility] [place] [place], [facility] Mobile Home Draw [address] [place] [address] 03/27/2024 8:00 AM EST Laboratory Lab Mobile Phlebotomy [facility] [place] [address] [place] [address] [facility] [place] [place], [facility] Mobile Home Draw [address] [place] [address] Scheduled Procedures Name Priority Associated Diagnoses Date/Ti [...] Additional history exists CKD PHOS USE SMARTSET 56029 03/21/2024 02/0 02/2023, 12/19/2022, 11/28/2022, Additional history exists Albumin/Creatinine Ratio 05/06/20242 024, 12/03/2022, 02/05/2022, Additional history exists CKD HGB USE SMARTSET 34398 05/06/202405/06, 03/06/2023, 03/06/2023, Additional history exists O2 [...] this encounter Medical Devices Implanted Type Area Sheriff'S Officer Device Identifier Shelf Expiration Date Model / Serial / Lot [place] Suture Biocomposite - Sn/A - [id number] Implanted:Qty: 2 on 12/13/2021 by Moris Jimenez DO at OR [facility] Left: Leg Lower [employer] 07/18/2024 [id number] / N/A / [id number] Vitoss Bbtrauma Foam Pack - [id number] - [id number] Implanted:Qty: 1 on 12/13/2021 by Moris Jimenez DO at OR [facility] Left: Leg Lower MICHA : TRAUMA 01/15/20226099-4920 / [id number] / [id number] documented as of this encounter Visit Diagnoses Diagnosis Referred for management of medication therapy- Primary Encounter for long-term (current) use of other medications documented in this encounter Advance Directives Latest Code Status on File Code Status Date Activated Date Inactivated Comments Full Code 12/12/2021 7:18 PM 12/20/2021 6:08 PM This order reflects the patients wishes and were consensually agreed upon. Question Answer Comments Discussion of Advance Directives occurred with: Patient Care Teams Reaming Press Operator Relationship Specialty Start Date End Date Shara Ray MD [address] [place] [address] [place] [phone] PCP - General Family Medicine 03/08/23 documented as of this encounter
--- OUTSIDE RECORDS SUMMARY | 2023-07-10 16:51 | External Medical Summary | Summary of Care ---
Author Name Unknown Organization [facility] Address [address] [place] [address] Phone [phone] Care Team Providers Care Telegraphic Typewriter Operator Name Role Phone Shara Ray MD Primary Care Provide r Reason for Visit * Reason Onset Date Comments Advice 05/29/2023 Patient is reque sting to speak to a nurse at this clinic on this patient. Medication Question 05/29/2023 Encounter Details Date Type Department Care Team (Late st Contact Info) Description 05/29/2023 Telephone Family [address] [phone] Shara Ray MD [address] [place] [address] [place] [phone] Advice (Patient is requesting to speak to ... Allergies Active Allergy Reactions Criticality Noted Date [...] as of this encounter (statuses as of 05/31/2023) Medications Medication Sig Dispensed Refills Start Date [...] 200 Tablet 1 02/05/2023 4 Active Nystatin 770505 UNIT/ML Mouth/Throat SuspensionIndication s:Thrush Swish and swallow [...] tablets by mouth daily as directed by [facility] 180 Tablet 3 03/06/2023 [...] as of this encounter (statuses as of 05/31/2023) Active Problems Problem Noted Date Diagnosed Date Major depressive disorder, recurrent, moderate 0 04/03/2023 Last Assessment & Plan: Mood stable on current dose celexa Other persistent atrial fibrillation 04/03/2023 Last Assessment & Plan: Rate controlled Continue coumadin Atherosclerosis of [place] co ronary artery without angina pectoris 04/03/2023 [...] IM/IV Chest Xray Additional Comments: Followed by sql server dba developer - Dr. Rashel Sales [facility] Closed nondisplaced fracture of left tibial tuberosity with routine healing 12/12/2021 Mild protein-calorie malnutrition 12/05/2021 Controlled substance agreement signed 12/05/2021 Hematoma of leg, left, subsequent encounter 09/2021 Overview: [facility] ER ulstrasound shows hematoma calf, [...] & Plan: Symptoms well controlled on omeprazole [facility] current use of anticoagulant therapy 0 05/10/2004 Overview: ICD-10 update of inactive term Rheumatic heart disease 03/05/2002 Old myocardial infarct 01/02/2001 Last Assessment & Plan: Continue Crestor 20 mg daily S/P mitral valve replacement Last Assessment & Plan: Chronic AC coumadin Atherosclerosis of [place] co ronary artery of [place] heart without angina pectoris documented as of this encounter (statuses as of 05/31/2023) Resolved Problems Problem Noted Date Diagnosed Date [...] Overview: Per CKD protocol #1 ORBIT-AF Research Other*[id number] 06/02/2010 04/18/2011 Overview: PROJECT: #[id number], SPONSOR: Aileen, PI: Adolfo De Jesus MD [...] can be closed. CONTACT: Roberto Carlos Huertas, Water Analyst Type 2 diabetes mellitus wit h hemoglobin [...] as of this encounter (statuses as of 05/31/2023) Immunizations Name Administration Dates Next Due COVID-19 [...] encounter Miscellaneous Notes * Telephone Encounter - Abel Atkinson LPN - 05/31/2023 1:18 PM EDT Beth aware via Identified Vm box of note below * Telephone Encounter - Shara Ray MD - 05/29/2023 1:35 PM EDT Yes from my chart review pt is okay to take Butrans patch Clinical note: - I do not prescribe tramadol anymore * Telephone Encounter - Sara Lackey LPN - 05/29/2023 11:06 AM EDT Beth from [facility]- Pain Management. States that SOFI Clinton is asking if PCP would be ok with her-SOFI Shook prescribing the pt a Butrans patch 5 mcg/hr? Please advise. * Telephone Encounter - Nick Kiser OSA - 05/29/2023 11:02 AM EDT Reason for patient's call: Beth from [facility]. Patient is requesting to speak to a nurse at this clinic on this patient. Caller was transferred to Cynthia at the nurse line. documented in this encounter Plan of Treatment Upcoming Encounters Date Type Department Care Team (Late st Contact Info) Description 05/31/2023 6:00 PM EDT Anticoagulation Pharmacy Call Center [address] [facility] [place] [address] [facility], [facility] [address] [facility] [place] [address] 06/04/2023 1:30 PM EDT Office Visit Allergy/Immunology [facility] [place] 200 [place] [address] Macario Pathak MD 200 [place] [address] 06/10/2023 12:20 PM EDT Office Visit Family Medicine [address] [phone] Shara Ray MD [address] [place] [address] [place] [address] 06/11/2023 1:30 PM EDT Scheduled Telephone [facility], [facility] [address] [facility] [place] [address] Vee Santacruz, KOSTAN [address] [facility] [place] [address] 06/20/2023 5:30 PM EDT Home Visit [facility], [facility] [place] [address] Valentina Laws RN [facility] [place] [address] 06/21/2023 8:00 AM EDT Laboratory Lab Mobile Phlebotomy [facility] [address] [place] [address] [facility] Mobile Home Draw [address] [place] [address] 06/21/2023 2:30 PM EDT Office Visit Cardiology, [facility] [place] [address] Hadley Molina MD 132 [place] [address] 06/24/2023 11:00 AM EDT Office Visit Hematology/Oncology [facility] [address] [facility] [place] [phone] Bouchra Del Cid CRNP 400 [facility] [place] [address] 07/04/2023 2:40 PM EDT Office Visit Nephrology [address] [place] [address] Aliyah Lacey MD 200 [facility] [place] [address] 08/05/2023 1:00 PM EDT Nurse Only Ancillary [address] [place] [address] [place], Nurse [address] [place] [address] 09/20/2023 8:00 AM EDT Laboratory Lab Mobile Phlebotomy [facility] [address] [place] [address] [facility] Mobile Home Draw [address] [place] [address] 09/24/2023 11:30 AM EDT Office Visit Nephrology, [facility] 200 [place] [address] ZebenyitisKary PA-C 200 [place] [address] 12/20/2023 8:00 AM EDT Laboratory Lab Mobile Phlebotomy [facility] [address] [place] [address] [facility] Mobile Home Draw [address] [place] [address] 03/27/2024 8:00 AM EST Laboratory Lab Mobile Phlebotomy [facility] [address] [place] [address] [facility] Mobile Home Draw [address] [place] [address] Scheduled Procedures Name Priority Associated Diagnoses Date/Ti [...] Additional history exists CKD PHOS USE SMARTSET 85214 03/21/2024 02/0 02/2023, 12/19/2022, 11/28/2022, Additional history exists Albumin/Creatinine Ratio 05/06/2024 024, 12/03/2022, 02/05/2022, Additional history exists CKD HGB USE SMARTSET 40184 05/06/202405/06, 03/06/2023, 03/06/2023, Additional history exists O2 [...] this encounter Medical Devices Implanted Type Area Energy Trader Device Identifier Shelf Expiration Date Model / Serial / Lot [place] Suture Biocomposite - Sn/A - [id number] Implanted:Qty: 2 on 12/13/2021 by Moris Jimenez, DO at OR [facility] Left: Leg Lower [employer] 07/18/2024 [id number] / N/A / [id number] Vitoss Bbtrauma Foam Pack - [id number] - [id number] Implanted:Qty: 1 on 12/13/2021 by Moris Jimenez, at OR [facility] Left: Leg Lower MICHA : TRAUMA 01/15/2022 / [id number] / [id number] documented as of this encounter Advance Directives Latest Code Status on File Code Status Date Activated Date Inactivated Comments Full Code 12/12/2021 7:18 PM 12/20/2021 6:08 PM This order reflects the patients wishes and were consensually agreed upon. Question Answer Comments Discussion of Advance Directives occurred with: Patient Care Teams Telegraphic Typewriter Operator Relationship Specialty Start Date End Date Shara Ray MD [address] [place] [address] [place] [phone] PCP - General Family Medicine 03/08/23 documented as of this encounter
--- OUTSIDE RECORDS SUMMARY | 2023-07-10 16:51 | External Medical Summary | Summary of Care ---
Author Name Unknown Organization [facility] Address [address] [facility] [place] [address] Phone [phone] Care Team Providers Care Decommissioning Well Site Manager Name Role Phone Shara Ray MD Primary Care Provide r Reason for Visit * Reason Onset Date Comments Information 05/31/2023 Encounter Details Date Type Department Care Team (Late st Contact Info) Description 05/31/2023 Telephone Cardiology, [facility] [place] [address] [place] [address] Hadley Molina MD [address] [place] [address] Information Allergies Active Allergy Reactions Criticality Noted Date [...] 200 Tablet 1 02/05/2023 4 Active Nystatin 201073 UNIT/ML Mouth/Throat SuspensionIndication s:Thrush Swish and swallow [...] tablets by mouth daily as directed by [facility] 180 Tablet 3 03/06/2023 Active [...] Plan: Rate controlled Continue coumadin Atherosclerosis of [place] co ronary artery without angina pectoris 04/03/2023 [...] IM/IV Chest Xray Additional Comments: Followed by environmental attorney - Dr. Rashel Sales [facility] Closed nondisplaced fracture of left tibial tuberosity with routine healing 12/12/2021 Mild protein-calorie malnutrition 12/05/2021 Controlled substance agreement signed 12/05/2021 Hematoma of leg, left, subsequent encounter 09/2021 Overview: [facility] ER ulstrasound shows hematoma calf, INR 4.2, [...] in the Comments) Remote Patient Monitoring Vendor: [facility] Device(s): Connected Scale Self - Management Plan [...] & Plan: Symptoms well controlled on omeprazole FDC current use of anticoagulant therapy 0 05/10/2004 Overview: ICD-10 update of inactive term Rheumatic heart disease 03/05/2002 Old myocardial infarct 01/02/2001 Last Assessment & Plan: Continue Crestor 20 mg daily S/P mitral valve replacement Last Assessment & Plan: Chronic AC coumadin Atherosclerosis of [place] co ronary artery of [place] heart without angina pectoris documented as of [...] Overview: Per CKD protocol #1 ORBIT-AF Research Other*[id number] 06/02/2010 04/18/2011 Overview: PROJECT: #[id number], SPONSOR: Aileen, PI: Adolfo De Jesus MD [...] can be closed. CONTACT: Roberto Carlos Huertas, Revenue Field Agent Type 2 diabetes mellitus wit h hemoglobin [...] encounter Miscellaneous Notes * Telephone Encounter - Wing Mahmood RN - 05/31/2023 1:09 PM EDT Called and spoke to the patient and reviewed the message from DR. Molina to take and extra 50 mg torsemide today. Explained if she get worse to go to the ER immediately. She stated she understood. * Telephone Encounter - Hadley Molina MD - 05/31/2023 12:57 PM EDT Patient to take an additional 50 mg torsemide today * Telephone Encounter - Elisha Gutierrez LPN - 05/31/2023 10:54 AM EDT Weight gain of 6lbs over 5 days. Bilat lower extremely edema, wet cough, difficulty breathing Caregiver Moris calling documented in this encounter Plan of Treatment Upcoming Encounters Date Type Department Care Team (Late st Contact Info) Description 05/31/2023 6:00 PM EDT Anticoagulation Pharmacy Call Center WB [address]60 [facility] [place] [address] Ccps, [facility] 58 60 [facility] [place] [address] 06/04/2023 1:30 PM EDT Office Visit Allergy/Immunology [facility] [place] 200 [facility] [place] [address] Macario Pathak MD [address] [place] [address] 06/10/2023 12:20 PM EDT Office Visit Family Medicine [address] [address] Shara Ray MD [address] [place] [address] [place] [address] 06/11/2023 1:30 PM EDT Scheduled Telephone [facility], [facility] [address] [facility] [place] [address] Vee Santacruz RDN [address] [facility] [place] [address] 06/20/2023 5:30 PM EDT Home Visit [facility], [facility] 132 [facility] [place] [address] Valentina Laws, TANISHA 132 [facility] [place] [address] 06/21/2023 8:00 AM EDT Laboratory Lab Mobile Phlebotomy [facility] [address] [place] [address] [facility], [facility] Mobile Home Draw [address], [place] [address] 06/21/2023 2:30 PM EDT Office Visit Cardiology, [facility] [place] [address] [place] [address] Hadley Molina MD [address] [place] [address] 06/24/2023 11:00 AM EDT Office Visit Hematology/Oncology [facility] [place] [address] [place] [phone] Bouchra Del Cid CRNP 400 [facility] [place] [address] 07/04/2023 2:40 PM EDT Office Visit Nephrology [address] [place] [address] Aliyah Lacey MD [address] [place] [address] 08/05/2023 1:00 PM EDT Nurse Only Ancillary [address] [place] [address] [place], Nurse [address] [place] [address] 09/20/2023 8:00 AM EDT Laboratory Lab Mobile Phlebotomy [facility] [address] [place] [address] [facility], [facility] Mobile Home Draw [address] [place] [address] 09/24/2023 11:30 AM EDT Office Visit Nephrology, [facility] [address] [place] [address] Kary Pena PA-C [address] [place] [address] 12/20/2023 8:00 AM EDT Laboratory Lab Mobile Phlebotomy [facility] [address], [place] [address] [facility], [facility] Mobile Home Draw [address] [place] [address] 03/27/2024 8:00 AM EST Laboratory Lab Mobile Phlebotomy [facility] [address] [place] [address] [facility], [facility] Mobile Home Draw [address] [place] [address] Scheduled Procedures Name Priority Associated Diagnoses Date/Ti [...] Additional history exists CKD PHOS USE SMARTSET 25819 03/21/2024 02/0 02/2023, 12/19/2022, 11/28/2022, Additional history exists Albumin/Creatinine Ratio 05/06/2024 03/2 024, 12/03/2022, 02/05/2022, Additional history exists CKD HGB USE SMARTSET 83234 05/06/202405/06, 03/06/2023, 03/06/2023, Additional history exists O2 [...] this encounter Medical Devices Implanted Type Area Cosmetic Consultant Device Identifier Shelf Expiration Date Model / Serial / Lot [place] Suture Biocomposite - Sn/A - [id number] Implanted:Qty: 2 on 12/13/2021 by Moris Jimenez DO at OR [facility] Left: Leg Lower [employer] 07/18/2024 AR-2324BCC / N/A / [id number] Vitoss Bbtrauma Foam Pack - [id number] - [id number] Implanted:Qty: 1 on 12/13/2021 by Moris Jimenez DO at OR [facility] Left: Leg Lower MICHA : TRAUMA 01/15/[id number] / [id number] / [id number] documented as of this encounter Advance Directives Latest Code Status on File Code Status Date Activated Date Inactivated Comments Full Code 12/12/2021 7:18 PM 12/20/2021 6:08 PM This order reflects the patients wishes and were consensually agreed upon. Question Answer Comments Discussion of Advance Directives occurred with: Patient Care Teams Decommissioning Well Site Manager Relationship Specialty Start Date End Date Shara Ray MD [address] [place] [address] [place] [address] PCP - General Family Medicine 03/08/23 documented as of this encounter
--- OUTSIDE RECORDS SUMMARY | 2023-07-10 16:51 | External Medical Summary | Summary of Care ---
Author Name Unknown Organization [facility] Address [address] [facility] [place] [address] Phone [phone] Care Team Providers Care Roller Shop Supervisor Name Role Phone Shara Ray MD Primary Care Provide r Reason for Visit * Reason Onset Date Comments Other 05/31/2023 Encounter Details Date Type Department Care Team (Late st Contact Info) Description 05/31/2023 Telephone Pharmacy Call Center [address] [place] [address] [facility] 58 60 Public [facility] [place] [address] Other Allergies Active Allergy Reactions Criticality Noted Date [...] 200 Tablet 1 02/05/2023 4 Active Nystatin 421550 UNIT/ML Mouth/Throat SuspensionIndication s:Thrush Swish and swallow [...] tablets by mouth daily as directed by [facility] 180 Tablet 3 03/06/2023 Active [...] Plan: Rate controlled Continue coumadin Atherosclerosis of [place] co ronary artery without angina pectoris 04/03/2023 [...] IM/IV Chest Xray Additional Comments: Followed by open source developer - Dr. Rashel Sales [facility] Closed nondisplaced fracture of left tibial tuberosity with routine healing 12/12/2021 Mild protein-calorie malnutrition 12/05/2021 Controlled substance agreement signed 12/05/2021 Hematoma of leg, left, subsequent encounter 09/2021 Overview: [facility] ER ulstrasound shows hematoma calf, INR 4.2, [...] in the Comments) Remote Patient Monitoring Vendor: [facility] Device(s): Connected Scale [...] & Plan: Chronic AC coumadin Atherosclerosis of [place] co ronary artery of [place] heart without angina pectoris documented as of [...] Overview: Per CKD protocol #1 ORBIT-AF Research Other*[id number] 06/02/2010 04/18/2011 Overview: PROJECT: #[id number], SPONSOR: Aileen, PI: Adolfo De Jesus MD [...] can be closed. CONTACT: Roberto Carlos Huertas, Knowledge Analyst Type 2 diabetes mellitus wit h [...] MCG/0.3 mL, 12 YRS AND ABOVE, IM ([employer]-Comirnaty) 12/03/2022 COVID-19, mRNA, LNP-s, PF, B ooster, [...] Miscellaneous Notes * Telephone Encounter - Meredith Leon PHARM Tech - 05/31/2023 2:37 PM EDT Caller's name: abdi Preferred call back number(OFFICE NUMBER FOR ): [phone] Reason for call: pt calling to verify she was on for a call back today, advised that she was. Thank you, Meredith Leon Receiving Coordinator [facility] Services (CCPS) (Formerly Telepharmacy) 05/31/2023,2:37 PM documented in this encounter Plan of Treatment Upcoming Encounters Date Type Department Care Team (Late st Contact Info) Description 05/31/2023 6:00 PM EDT Anticoagulation Pharmacy Call Center WB [address] [place] [address] Ccps, [facility] 58 60 [facility] [place] [address] 06/04/2023 1:30 PM EDT Office Visit Allergy/Immunology [facility] [address] [address] Macario Pathak MD [address] [place] [address] [address] 06/10/2023 12:20 PM EDT Office Visit Family Medicine [address] [place] [phone] Shara Ray MD [address] [place] [address] [place] [address] 06/11/2023 1:30 PM EDT Scheduled Telephone [facility], [facility] 1000 [address] [facility] [place] [address] Vee Santacruz RDN 1000 [address] [facility] [place] [address] 06/20/2023 5:30 PM EDT Home Visit [facility], [facility] [address] [place] [address] Valentina Laws RN [address] [place] [address] 06/21/2023 8:00 AM EDT Laboratory Lab Mobile Phlebotomy [facility] [address] [place] [address] [facility], [facility] Mobile Home Draw [address] [place] [address] 06/21/2023 2:30 PM EDT Office Visit Cardiology, [facility] [address] [place] [address] Hadley Molina MD [address] [place] [address] 06/24/2023 11:00 AM EDT Office Visit Hematology/Oncology [facility] 200 [facility] [place] [phone] Bouchra Del Cid CRNP [address] [place] [address] [place] [address] 07/04/2023 2:40 PM EDT Office Visit Nephrology [address] [place] [address] Aliyah Lacey MD [address] [place] [address] 08/05/2023 1:00 PM EDT Nurse Only Ancillary [address] [place] [address] [place], Nurse [address] [place] [address] 09/20/2023 8:00 AM EDT Laboratory Lab Mobile Phlebotomy [facility] [address] [place] [address] [facility], [facility] Mobile Home Draw [address] [place] [address] 09/24/2023 11:30 AM EDT Office Visit Nephrology, [facility] 200 [facility] [place] [address] Kary Pena PA-C 200 [facility] [place] [address] 12/20/2023 8:00 AM EDT Laboratory Lab Mobile Phlebotomy [facility] [address] [place] [address] [facility], [facility] Mobile Home Draw [address] [place] [address] 03/27/2024 8:00 AM EST Laboratory Lab Mobile Phlebotomy [facility] [address] [place], [place] [phone] [facility], [facility] Mobile Home Draw [address] [place] [address] Scheduled Procedures Name Priority Associated Diagnoses Date/Ti [...] Additional history exists CKD PHOS USE SMARTSET 45676 03/21/2024 02/0 02/2023, 12/19/2022, 11/28/2022, Additional history exists Albumin/Creatinine Ratio 05/06/2024 024, 12/03/2022, 02/05/2022, Additional history exists CKD HGB USE SMARTSET 77586 05/06/202405/06, 03/06/2023, 03/06/2023, Additional history exists O2 [...] this encounter Medical Devices Implanted Type Area Pumper Helper Device Identifier Shelf Expiration Date Model / Serial / Lot [place] Suture Biocomposite - Sn/A - [id number] Implanted:Qty: 2 on 12/13/2021 by Moris Jimenez DO at OR [facility] Left: Leg Lower [employer] 07/18/2024 AR-2324BCC / N/A / [id number] Vitoss Bbtrauma Foam Pack - [id number] - [id number] Implanted:Qty: 1 on 12/13/2021 by Moris Jimenez DO at OR [facility] Left: Leg Lower MICHA : TRAUMA 01/15/20222 / [id number] / [id number] documented as of this encounter Advance Directives Latest Code Status on File Code Status Date Activated Date Inactivated Comments Full Code 12/12/2021 7:18 PM 12/20/2021 6:08 PM This order reflects the patients wishes and were consensually agreed upon. Question Answer Comments Discussion of Advance Directives occurred with: Patient Care Teams Roller Shop Supervisor Relationship Specialty Start Date End Date Shara Ray MD [address] [place] [address] [place] [phone] PCP - General Family Medicine 03/08/23 documented as of this encounter
--- OUTSIDE RECORDS SUMMARY | 2023-07-10 16:51 | External Medical Summary | Summary of Care ---
Author Name Unknown Organization [facility] Address [address] [facility] [place] [address] Phone [phone] Care Team Providers Care Tooth Inspector Name Role Phone Shara Ray MD Primary Care Provide r Reason for Visit * Reason Comments Dosage Adjustment Via Phone (anticoag Cl inic) Encounter Details Date Type Department Care Team (Latest Contact Info) Description 05/31/2023 6:00 PM EDT Anticoagulation Pharmacy Call Center [address] [place] [address] [facility] [address] [place] [address] care home current use of anticoagulant therapy*; [...] 200 Tablet 1 02/05/2023 4 Active Nystatin 424056 UNIT/ML Mouth/Throat SuspensionIndication s:Thrush Swish and swallow [...] tablets by [facility] 180 Tablet 3 03/06/2023 Active Nitroglycerin [...] Plan: Rate controlled Continue coumadin Atherosclerosis of [place] co ronary artery without angina pectoris 04/03/2023 [...] Xray Additional Comments: Followed by director of scientific research - Dr. Rashel Sales [facility] Closed nondisplaced fracture of left tibial tuberosity with routine healing 12/12/2021 Mild protein-calorie malnutrition 12/05/2021 Controlled substance agreement signed 12/05/2021 Hematoma of leg, left, subsequent encounter 09/2021 Overview: [facility] ER ulstrasound shows hematoma calf, [...] the Comments) Remote Patient Monitoring Vendor: [facility] Device(s): Connected Scale Self - Management Plan [...] & Plan: Chronic AC coumadin Atherosclerosis of [place] co ronary artery of [place] heart without angina pectoris documented as of [...] Overview: Per CKD protocol #1 ORBIT-AF Research Other*[id number] 06/02/2010 04/18/2011 Overview: PROJECT: #[id number], SPONSOR: Geovanna&Geovanna, PI: Adolfo De Jesus MD [...] can be closed. CONTACT: Roberto Carlos Huertas, Shoe Salesperson Type 2 diabetes mellitus wit h hemoglobin [...] this encounter Progress Notes * Kirby Gates, [facility] - 05/31/2023 3:28 PM EDT Images from the original note were not included. Medication Therapy Disease Management - Anticoagulation Patient: Abdi Bowling | : 1955 Subjective Contacts Type Contact Phone/Fax 05/31/2023 03:33 PM EDT Phone (Outgoing) Abdi Bowling (Self) [phone] (M) Spoke to Patient Patient-Reported Symptoms: Patient Findings Positives: Change in health (gained about 6lbs in 5 days, water weight), Change in medications (wastold to take an extra half dose of torsemide today, starting butrans patch tomorrow for pain) Negatives: Signs/symptoms of thrombosis, Signs/symptoms of bleeding, Change in alcohol use, Change in activity, Upcoming invasive procedure, Missed doses, Extra doses, Change in diet/appetite, Bruising Comments: Likely not seeing full effect of yesterday's bolus yet. However will give another small bolus today to make sure INR comes up Objective Current Warfarin Dose As of 05/31/2023 Warfarin maintenance plan: 5 mg (2.5 mg x 2) every day INR Result As of 05/31/2023 INR goal: 3.0-3.5 INR used for dosin.6 (05/31/2023) Assessment & Plan Warfarin Plan As of 05/31/2023 Full warfarin instructions: 05/30: 7.5 mg; Otherwise 5 mg every day Next INR check: 06/03/2023 Repeat PT/INR in 3 day(s) at [facility] Weekly dose: not changed Additional Dosing Information: Description GML WedFri, prefers Wed ([facility], [facility], or [facility]) Please also send myG Kirby Gates [facility] Clinical Pharmacist 05/31/2023, 3:28 PM documented in this encounter Plan of Treatment Upcoming Encounters Date Type Department Care Team (Late st Contact Info) Description 06/03/2023 10:00 AM EDT [facility] 132 [facility] [place] [facility] [place] [phone] [facility] 132 [place] [address] 06/03/2023 6:00 PM EDT Anticoagulation Pharmacy Call Center [address] [place] [address] [facility] 58 [address] [place] [address] 06/04/2023 1:30 PM EDT Office Visit Allergy/Immunology [facility] [address] 200 [facility] [address] [place] [address] Macario Pathak MD 200 [facility] [address] [address] [place] [address] 06/10/2023 12:20 PM EDT Office Visit Family Medicine [address] [place] [phone] Shara Ray MD [address] [place] [address] [place] [address] 06/11/2023 1:30 PM EDT Scheduled Telephone [facility], [facility] 1000 [address] [facility] [place] [address] Vee Santacruz, RDN [address] [place] [address] 06/20/2023 5:30 PM EDT Home Visit [facility], [facility] 132 [facility] [place] [address] Valentina Laws RN 132 [facility] [place] [address] 06/21/2023 8:00 AM EDT Laboratory Lab Mobile Phlebotomy [facility] [address] [place] [address] [facility], [facility] Mobile Home Draw [address] [place] [address] 06/21/2023 2:30 PM EDT Office Visit Cardiology, [facility] 132 [facility] [place] [address] Hadley Molina MD [address] [facility] [place] [address] 06/24/2023 11:00 AM EDT Office Visit Hematology/Oncology [facility] 200 [facility] [address] [place] [phone] Bouchra Del Cid CRNP 400 [facility] [place]UARDOJOSÉ [place] [address] 07/04/2023 2:40 PM EDT Office Visit Nephrology [address] [place] [address] Aliyah Lacey MD 200 [facility] [address] [place] [address] 08/05/2023 1:00 PM EDT Nurse Only Ancillary [address] [place] [address] Cheryley, Nurse [address] [place] [address] 09/20/2023 8:00 AM EDT Laboratory Lab Mobile Phlebotomy [facility] [address] [place] [address] [facility], [facility] Mobile Home Draw [address] [place] [address] 09/24/2023 11:30 AM EDT Office Visit Nephrology, [facility] [address] [place] [address] ZemaitisKary PA-C [address] [place] [address] 12/20/2023 8:00 AM EDT Laboratory Lab Mobile Phlebotomy [facility] [address] [place] [address] [facility], [facility] Mobile Home Draw [address] [place] [address] 03/27/2024 8:00 AM EST Laboratory Lab Mobile Phlebotomy [facility] [address] [place] [address] [facility], [facility] Mobile Home Draw [address] [place], [place] [address] Scheduled Procedures Name Priority Associated Diagnoses Date/Ti [...] Additional history exists CKD PHOS USE SMARTSET 55287 03/21/2024 02/0 02/2023, 12/19/2022, 11/28/2022, Additional history exists Albumin/Creatinine Ratio 05/06/2024 024, 12/03/2022, 02/05/2022, Additional history exists CKD HGB USE SMARTSET 48140 05/06/202405/06, 03/06/2023, 03/06/2023, Additional history exists O2 [...] this encounter Medical Devices Implanted Type Area Spreading Machine Operator Device Identifier Shelf Expiration Date Model / Serial / Lot [place] Suture Biocomposite - Sn/A - [id number] Implanted:Qty: 2 on 12/13/2021 by Moris Jimenez, DO at OR [facility] Left: Leg Lower [employer] 07/18/2024 AR-2324BCC / N/A / [id number] Vitoss Bbtrauma Foam Pack - [id number] - [id number] Implanted:Qty: 1 on 12/13/2021 by Moris Jimenez, DO at OR [facility] Left: Leg Lower MICHA : TRAUMA 01/15/2022 / [id number] / [id number] documented as of this encounter 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
--- OUTSIDE RECORDS SUMMARY | 2023-07-10 16:52 | External Medical Summary | Summary of Care ---
Author Name Unknown Organization [facility] Address [address] [facility] [place] [address] Phone [phone] Care Team Providers Care Signal Tower Director Name Role Phone Shara Ray MD Primary Care Provide r Reason for Visit * Reason Comments Dosage Adjustment Via Phone (anticoag Cl inic) Encounter Details Date Type Department Care Team (Latest Contact Info) Description 05/29/2023 6:00 PM EDT Anticoagulation Pharmacy Call Center [address] Public [place] [address] [facility] 58 60 [facility] [place] [address] predatory animal exterminator current use of anticoagulant [...] as of this encounter (statuses as of 05/29/2023) Medications Medication Sig Dispensed Refills Start Date [...] 200 Tablet 1 02/05/2023 4 Active Nystatin 604825 UNIT/ML Mouth/Throat SuspensionIndication s:Thrush Swish and swallow [...] as of this encounter (statuses as of 05/29/2023) Active Problems Problem Noted Date Diagnosed Date Major depressive disorder, recurrent, moderate 0 04/03/2023 Last Assessment & Plan: Mood stable on current dose celexa Other persistent atrial fibrillation 04/03/2023 Last Assessment & Plan: Rate controlled Continue coumadin Atherosclerosis of [place] co ronary artery without angina pectoris 04/03/2023 [...] IM/IV Chest Xray Additional Comments: Followed by feed research technician - Dr. Rashel Sales [facility] Closed nondisplaced fracture of left tibial tuberosity with routine healing 12/12/2021 Mild protein-calorie malnutrition 12/05/2021 Controlled substance agreement signed 12/05/2021 Hematoma of leg, left, subsequent encounter 09/2021 Overview: [facility] ER ulstrasound shows hematoma calf, INR 4.2, [...] & Plan: Symptoms well controlled on omeprazole [facility] current use of anticoagulant therapy 0 05/10/2004 Overview: ICD-10 update of inactive term Rheumatic heart disease 03/05/2002 Old myocardial infarct 01/02/2001 Last Assessment & Plan: Continue Crestor 20 mg daily S/P mitral valve replacement Last Assessment & Plan: Chronic AC coumadin Atherosclerosis of [place] co ronary artery of [place] heart without angina pectoris documented as of this encounter (statuses as of 05/29/2023) Resolved Problems Problem Noted Date Diagnosed Date [...] Overview: Per CKD protocol #1 ORBIT-AF Research Other*[id number] 06/02/2010 04/18/2011 Overview: PROJECT: #[id number], SPONSOR: Aileen, PI: Adolfo De Jesus MD [...] can be closed. CONTACT: Roberto Carlos Huertas, Tongue And Groove Machine Feeder Type 2 diabetes mellitus wit h hemoglobin [...] as of this encounter (statuses as of 05/29/2023) Immunizations Name Administration Dates Next Due COVID-19 [...] Progress Notes * Kirby Gates RPh - 05/29/2023 4:29 PM EDT INR today still in process. Spoke with pt and instructed to take coumadin 3.75mg tonight. Will follow up tomorrow for results. Kirby Gates, Pharm.D. Clinical Pharmacist [facility] (CCPS) (formerly Telepharmacy) 05/29/2023, 4:30 PM [phone] documented in this encounter Plan of Treatment Upcoming Encounters Date Type Department Care Team (Late st Contact Info) Description 05/30/2023 6:00 AM EDT Anticoagulation Pharmacy Call Center WB 58-60 [facility] [place] [address] [facility] 58 60 [facility] [place] [address] 06/04/2023 1:30 PM EDT Office Visit Allergy/Immunology [facility] [place] [address] [place] [address] Macario Pathak MD 200 [facility] [place] [address] 06/10/2023 12:20 PM EDT Office Visit Family [address] [phone] Shara Ray MD [address] [place] [address] [place] [address] 06/11/2023 1:30 PM EDT Scheduled Telephone [facility], [facility] [address] [facility] [place] [address] Vee Santacruz RDN [address] [facility] [place] [address] 06/20/2023 5:30 PM EDT Home Visit [facility], [facility] [address] [place] [address] Valentina Laws RN [address] [place] [address] 06/21/2023 8:00 AM EDT Laboratory Lab Mobile Phlebotomy [facility] [address] [place] [address] [facility] Home Draw [address] [place] [address] 06/21/2023 2:30 PM EDT Office Visit Cardiology, [facility] [address] [place] [address] Hadley Molina MD [address] [place] [address] 06/24/2023 11:00 AM EDT Office Visit Hematology/Oncology [facility] [place] [address] [place] [address] Bouchra Del Cid CRNP 400 [facility] [place] [address] 07/04/2023 2:40 PM EDT Office Visit Nephrology [address] [place] [address] Aliyah Lacey MD [address] [place] [address] 08/05/2023 1:00 PM EDT Nurse Only Ancillary [address] [place] [address] [place], Nurse [address] [place] [address] 09/20/2023 8:00 AM EDT Laboratory Lab Mobile Phlebotomy [facility] [address] [place] [address] [facility] l Mobile Home Draw [address] [place] [address] 09/24/2023 11:30 AM EDT Office Visit Nephrology, [facility] [address] [facility] [address] [place] [address] Kary Pena PA-C 200 [facility] [place] [address] 12/20/2023 8:00 AM EDT Laboratory Lab Mobile Phlebotomy [facility] [address] [place] [address] [facility] Mobile Home Draw [address] [place] [address] 03/27/2024 8:00 AM EST Laboratory Lab Mobile Phlebotomy [facility] [address] [place], [place] [phone] [facility], [facility] Mobile Home Draw [address] [place], [place] [id number] Scheduled Procedures Name Priority Associated Diagnoses Date/Ti [...] Additional history exists CKD PHOS USE SMARTSET 23758 03/21/2024 02/0 02/2023, 12/19/2022, 11/28/2022, Additional history exists Albumin/Creatinine Ratio 05/06/2024 024, 12/03/2022, 02/05/2022, Additional history exists CKD HGB USE SMARTSET 74334 05/06/202405/06, 03/06/2023, 03/06/2023, Additional history exists O2 [...] this encounter Medical Devices Implanted Type Area Byproducts Operator Device Identifier Shelf Expiration Date Model / Serial / Lot [place] Suture Biocomposite - Sn/A - [id number] Implanted:Qty: 2 on 12/13/2021 by Moris Jimenez DO at OR [facility] Left: Leg Lower [employer] 07/18/2024 AR-2324BCC / N/A / [id number] Vitoss Bbtrauma Foam Pack - [id number] - [id number] Implanted:Qty: 1 on 12/13/2021 by Moris Jimenez DO at OR [facility] Left: Leg Lower MICHA : TRAUMA 01/15/2022 [id number] / [id number] / [id number] documented as of this encounter Visit Diagnoses Diagnosis FPC current use of anticoagulant therapy- Primary History [...] Advance Directives occurred with: Patient Care Teams Signal Tower Director Relationship Specialty Start Date End Date Shara Ray MD [address] [place] [address] [place] [address] PCP - General Family Medicine 03/08/23 documented as of this encounter
--- OUTSIDE RECORDS SUMMARY | 2023-07-10 16:52 | External Medical Summary | Summary of Care ---
Author Name Unknown Organization [facility] Address [address] [facility] [place] [address] Phone [phone] Care Team Providers Care Catalyst Manufacturing Operator Name Role Phone Shara Ray MD Primary Care Provide r Reason for Visit * Reason Comments Outpatient Testing Encounter Details Date Type Department Care Team (Late st Contact Info) Description 05/31/2023 10:00 AM EDT Laboratory Laboratory, [facility] 132 [facility] [place] [phone] [facility] 132 [facility] [place] [address] [facility] current use of anticoagulant therapy; History of [...] 200 Tablet 1 02/05/2023 4 Active Nystatin 473269 UNIT/ML Mouth/Throat SuspensionIndication s:Thrush Swish and swallow [...] tablets by mouth daily as directed by [facility] 180 Tablet 3 03/06/2023 Active [...] Plan: Rate controlled Continue coumadin Atherosclerosis of [place] co ronary artery without angina pectoris 04/03/2023 [...] IM/IV Chest Xray Additional Comments: Followed by catering chef - Dr. Rashel Sales [facility] Closed nondisplaced fracture of left tibial tuberosity with routine healing 12/12/2021 Mild protein-calorie malnutrition 12/05/2021 Controlled substance agreement signed 12/05/2021 Hematoma of leg, left, subsequent encounter 09/2021 Overview: [facility] ER ulstrasound shows hematoma calf, INR 4.2, [...] in the Comments) Remote Patient Monitoring Vendor: [facility] Device(s): Connected Scale Self - Management Plan [...] & Plan: Chronic AC coumadin Atherosclerosis of [place] co ronary artery of [place] heart without angina pectoris documented as of [...] Overview: Per CKD protocol #1 ORBIT-AF Research Other*[id number] 06/02/2010 04/18/2011 Overview: PROJECT: #[id number], SPONSOR: Geovanna&Geovanna, PI: Adolfo De Jesus MD [...] can be closed. CONTACT: Roberto Carlos Huertas, Admission Discharge Rn Type 2 diabetes mellitus wit h hemoglobin A1c goal of less than 7.0% 04/24/2010 08/29/2018 Overview: ICD-10 update of inactive term ACTIVE CASE MANAGEMENT Kassie Anthony, RN [phone] 05/10/19 10 12/05/2009 ADVANCE DIRECTIVE INFORMATION 05/09/2009 [...] EDT Anticoagulation Pharmacy Call Center WB [address] [place] [address] [facility], [facility] 58 60 [facility] [place] [address] 06/04/2023 1:30 PM EDT Office Visit Allergy/Immunology [facility] 200 [facility] [place] [address] Macario Pathak MD 200 [facility] [place] [address] 06/10/2023 12:20 PM EDT Office Visit Family Medicine [address] [place] [address] Shara Ray MD [address] [place] [address] [place] [address] 06/11/2023 1:30 PM EDT Scheduled Telephone [facility], [facility] [address] [facility] [place] [address] Vee Santacruz RDN [address] [facility] [place] [address] 06/20/2023 5:30 PM EDT Home Visit [facility], [facility] 132 [facility] [place] [address] Valentina Laws, TANISHA 132 [facility] [place] [address] 06/21/2023 8:00 AM EDT Laboratory Lab Mobile Phlebotomy [facility] [address] [place], [place] [phone] [facility], [facility] Mobile Home Draw [address] [place] [address] 06/21/2023 2:30 PM EDT Office Visit Cardiology, [facility] 132 [facility] [place] [address] Hadley Molina MD 132 [facility] [place] [address] 06/24/2023 11:00 AM EDT Office Visit Hematology/Oncology [facility] 200 [facility] [place] [address] Bouchra Del Cid CRNP 400 [place] [address] 07/04/2023 2:40 PM EDT Office Visit Nephrology [address] [place] [address] Aliyah Lacey MD 200 [facility] [place] [address] 08/05/2023 1:00 PM EDT Nurse Only Ancillary [address] [place] [address] [place], Nurse [address] [place] [address] 09/20/2023 8:00 AM EDT Laboratory Lab Mobile Phlebotomy [facility] [address] [place] [address] [facility] Mobile Home Draw [address] [place] [address] 09/24/2023 11:30 AM EDT Office Visit Nephrology, [facility] [address] [place] [address] ZemaitisKary PA-C [address] [place] [address] 12/20/2023 8:00 AM EDT Laboratory Lab Mobile Phlebotomy [facility] [address] [place] [address] [facility] Mobile Home Draw [address] [place] [address] 03/27/2024 8:00 AM EST Laboratory Lab Mobile Phlebotomy [facility] [address] [place], [place] [phone] [facility], [facility] Mobile Home Draw [address] [place], [place] [phone] Pending Results Name Type Priority Associated Diagnoses Date /Time PT INR Lab Routine [facility] current use of anticoagulant therapy History of TIA (transient ischemic attack) S/P mitral valve replacement Permanent atrial fibrillation (HCC) 05/31/2023 9:08 AM EDT Scheduled Procedures Name Priority Associated [...] Additional history exists CKD PHOS USE SMARTSET 94066 03/21/2024 02/0 02/2023, 12/19/2022, 11/28/2022, Additional history exists Albumin/Creatinine Ratio 05/06/2024 024, 12/03/2022, 02/05/2022, Additional history exists CKD HGB USE SMARTSET 94896 05/06/202405/06, 03/06/2023, 03/06/2023, Additional history exists O2 [...] this encounter Medical Devices Implanted Type Area Solution Advisor Device Identifier Shelf Expiration Date Model / Serial / Lot [place] Suture Biocomposite - Sn/A - [id number] Implanted:Qty: 2 on 12/13/2021 by Moris Jimenez, DO at OR [facility] Left: Leg Lower [employer] 07/18/2024 AR-2324BCC / N/A / [id number] Vitoss Bbtrauma Foam Pack - [id number] - [id number] Implanted:Qty: 1 on 12/13/2021 by Moris Jimenez, DO at OR 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
--- OUTSIDE RECORDS SUMMARY | 2023-07-10 16:52 | External Medical Summary | Summary of Care ---
Author Name Unknown Organization [facility] Address [address] [facility] [place] [address] Phone [phone] Care Team Providers Care Welfare Director Name Role Phone Shara Ray MD Primary Care Provide r Reason for Visit * Reason Comments Dosage Adjustment Via Phone (anticoag Cl inic) Encounter Details Date Type Department Care Team (Latest Contact Info) Description 05/30/2023 6:00 AM EDT Anticoagulation Pharmacy Call Center [address] [place] [address] [facility] 58 60 [facility] [place] [address] salvage determiner current use of anticoagulant therapy*; History of [...] as of this encounter (statuses as of 05/30/2023) Medications Medication Sig Dispensed Refills Start Date [...] 200 Tablet 1 02/05/2023 4 Active Nystatin 424559 UNIT/ML Mouth/Throat SuspensionIndication s:Thrush Swish and swallow [...] by mouth daily as directed by [facility] 180 Tablet 3 03/06/2023 Active [...] as of this encounter (statuses as of 05/30/2023) Active Problems Problem Noted Date Diagnosed Date Major depressive disorder, recurrent, moderate 0 04/03/2023 Last Assessment & Plan: Mood stable on current dose celexa Other persistent atrial fibrillation 04/03/2023 Last Assessment & Plan: Rate controlled Continue coumadin Atherosclerosis of [place] co ronary artery without angina pectoris 04/03/2023 [...] IM/IV Chest Xray Additional Comments: Followed by assistant plant controller - Dr. Rashel Sales [facility] [...] in the Comments) Remote Patient Monitoring Vendor: [facility] Device(s): Connected Scale Self - [...] & Plan: Chronic AC coumadin Atherosclerosis of [place] co ronary artery of [place] heart without angina pectoris documented as of this encounter (statuses as of 05/30/2023) Resolved Problems Problem Noted Date Diagnosed Date [...] Overview: Per CKD protocol #1 ORBIT-AF Research Other*[id number] 06/02/2010 04/18/2011 Overview: PROJECT: #[id number], SPONSOR: Aileen, PI: Adolfo De Jesus MD [...] can be closed. CONTACT: Roberto Carlos Huertas, Bearing Ring Assembler Type 2 diabetes mellitus wit h hemoglobin [...] as of this encounter (statuses as of 05/30/2023) Immunizations Name Administration Dates Next Due COVID-19 [...] this encounter Progress Notes * Kirby Gates, [facility] - 05/30/2023 11:28 AM EDT Images from the original note were not included. Medication Therapy Disease Management - Anticoagulation Patient: Abdi Elisha Bowling | : 1955 Subjective Contacts Type Contact Phone/Fax 05/30/2023 11:40 AM EDT Phone (Outgoing) Abdi Bowling (Self) [phone] (M) Spoke to Patient Patient-Reported Symptoms: Patient Findings Negatives: Signs/symptoms of thrombosis, Signs/symptoms of bleeding, Change in health, Change in alcohol use, Change in activity, Upcoming invasive procedure, Missed doses, Extra doses, Change in medications, Change in diet/appetite, Bruising Comments: Pt denies any changes that would affect INR. She said she does not eat anything she's notsupposed to. No increase in veggies or greens, no boost/ensure, no new medications, has not been sick recently. She will go to [facility] to have INR rechecked tomorrow. Objective Current Warfarin Dose As of 05/30/2023 Warfarin maintenance plan: 3.75 mg (2.5 mg x 1.5) every Sat, Sat; 5 mg (2.5 mg x 2) all other days INR Result As of 05/30/2023 INR goal: 3.0-3.5 INR used for dosin.2 (05/29/2023) Assessment & Plan Warfarin Plan As of 05/30/2023 Full warfarin instructions: 05/29: 10 mg; Otherwise 5 mg every day Next INR check: 05/31/2023 Repeat PT/INR in 2 day(s) at [facility] Weekly dose: increased Additional Dosing Information: Description GML WedFri, prefers Wed ([facility], [facility], or [facility]) Please also send myG Kirby Gates RPh Clinical Pharmacist 05/30/2023, 11:28 AM documented in this encounter Plan of Treatment Upcoming Encounters Date Type Department Care Team (Late st Contact Info) Description 05/31/2023 6:00 PM EDT Anticoagulation Pharmacy Call Center [address] Public [place] [address] [facility] 58 60 [facility] [place] [address] 06/04/2023 1:30 PM EDT Office Visit Allergy/Immunology [facility] [place] 200 [facility] [place] [address] Macario Pathak MD 200 [facility] [place] [address] 06/10/2023 12:20 PM EDT Office Visit Family Medicine [address] [place] [phone] Shara Ray MD [address] [place] [address] [place] [address] 06/11/2023 1:30 PM EDT Scheduled Telephone [facility], [facility] [address] [facility] [place] [address] Vee Santacruz, RDN [address] [facility] [place] [address] 06/20/2023 5:30 PM EDT [facility] Visit [facility] [place], [facility] 132 [facility] [place] [address] Valentina Laws RN 132 [facility] [place] [address] 06/21/2023 8:00 AM EDT Laboratory Lab Mobile Phlebotomy [facility] [address] [place], [place] [phone] [facility] Mobile Home Draw [address] [place] [address] 06/21/2023 2:30 PM EDT Office Visit Cardiology, [facility] 132 [facility] [place] [address] Hadley Molina MD 132 [facility] [place] [address] 06/24/2023 11:00 AM EDT Office Visit Hematology/Oncology [facility] [place] 200 [facility] [place] [phone] Bouchra Del Cid CRNP [address] [place] [address] 07/04/2023 2:40 PM EDT Office Visit Nephrology [address] [place] [address] Aliyah Lacey MD 200 [facility] [place] [address] 08/05/2023 1:00 PM EDT Nurse Only Ancillary [address] [place] [address] [place], Nurse [address] [place] [address] 09/20/2023 8:00 AM EDT Laboratory Lab Mobile Phlebotomy [facility] [address] [place] [address] [facility] Mobile Home Draw [address] [place] [address] 09/24/2023 11:30 AM EDT [facility] 200 [facility] [place] [address] ZemaitisKary PA-C 200 [facility] [place] [address] 12/20/2023 8:00 AM EDT Laboratory Lab Mobile Phlebotomy [facility] [address] [place] [address] [facility] Mobile Home Draw [address] [place] [address] 03/27/2024 8:00 AM EST Laboratory Lab Mobile Phlebotomy [facility] [address] [place] [address] [facility] Mobile Home Draw [address] [place] [address] Scheduled Procedures Name Priority Associated Diagnoses Date/Ti [...] Additional history exists CKD PHOS USE SMARTSET 22381 03/21/2024 02/0 02/2023, 12/19/2022, 11/28/2022, Additional history exists Albumin/Creatinine Ratio 05/06/2024 024, 12/03/2022, 02/05/2022, Additional history exists CKD HGB USE SMARTSET 62668 05/06/202405/06, 03/06/2023, 03/06/2023, Additional history exists O2 [...] encounter Medical Devices Implanted Type Area Senior Director Marketing Device Identifier Shelf Expiration Date Model / Serial / Lot [place] Suture Biocomposite - Sn/A - [id number] Implanted:Qty: 2 on 12/13/2021 by Moris Jimenez, DO at OR [facility] Left: Leg Lower [employer] 07/18/2024 AR-2324BCC / N/A / [id number] Vitoss Bbtrauma Foam Pack - [id number] - [id number] Implanted:Qty: 1 on 12/13/2021 by Moris Jimenez, DO at OR [facility] Left: Leg Lower MICHA : TRAUMA 01/15/[id number] / [id number] / [id number] documented as of this encounter Visit Diagnoses Diagnosis salvage determiner current use of anticoagulant therapy- Primary History [...] Advance Directives occurred with: Patient Care Teams Welfare Director Relationship Specialty Start Date End Date Shara Ray MD [address] [place] [address] [place] [address] PCP - General Family Medicine 03/08/23 documented as of this encounter
--- OUTSIDE RECORDS SUMMARY | 2023-07-10 16:52 | External Medical Summary ---
Author Name Unknown Address Unknown Organization K0G:[facility] [address] [place] [address] Laboratory Report Ordering Provider Test Date Status SONIA PANTOJA 05/31/2023 09:08:36 Final Standing order for pt/inr. < br/>Please draw pt/inr every 1 to 4 weeks as requested.
Results to [facility] Anticoagulation [facility]

Warfarin Therapy
INR: 2.0-3.0 conventional anticoagulation
INR: 2.5-3.5 high intensity anticoagulation Observation Date Value Abnormality Reference (Units ) Status PT 05/31/2023 09:08:36 28.3 Above high normal 11 .6-15.2 (seconds) Final INR 05/31/2023 09:08:36 2.6 Above high normal 0. 8-1.2 Final Performing Location [facility] 57[address]1 0 - [address] [place] [address]
--- OUTSIDE RECORDS SUMMARY | 2023-07-10 16:52 | External Medical Summary | Summary of Care ---
Author Name Unknown Organization [facility] Address [address] [facility] [place] [address] Phone [phone] Care Team Providers Care Blueprint Clerk Name Role Phone Shara Ray MD Primary Care Provide r Reason for Visit * Reason Onset Date Comments Information 05/31/2023 Encounter Details Date Type Department Care Team (Late st Contact Info) Description 05/31/2023 Telephone Cardiology, [facility] [address] [place] [address] Hadley Molina MD [address] [place] [address] Information Allergies Active Allergy Reactions Criticality Noted [...] 200 Tablet 1 02/05/2023 4 Active Nystatin 514868 UNIT/ML Mouth/Throat SuspensionIndication s:Thrush Swish and swallow [...] by mouth daily as directed by [facility] 180 Tablet 3 03/06/2023 [...] Plan: Rate controlled Continue coumadin Atherosclerosis of [place] co ronary artery without angina pectoris 04/03/2023 [...] IM/IV Chest Xray Additional Comments: Followed by it program manager - Dr. Rashel Sales [facility] Closed nondisplaced fracture of left [...] in the Comments) Remote Patient Monitoring Vendor: [employer] Device(s): Connected Scale Self - [...] & Plan: Symptoms well controlled on omeprazole [facility] current use of anticoagulant therapy 0 05/10/2004 Overview: ICD-10 update of inactive term Rheumatic heart disease 03/05/2002 Old myocardial infarct 01/02/2001 Last Assessment & Plan: Continue Crestor 20 mg daily S/P mitral valve replacement Last Assessment & Plan: Chronic AC coumadin Atherosclerosis of [place] ronary artery of [place] heart without angina pectoris documented as of [...] Overview: Per CKD protocol #1 [employer]BIT-[employer] Research Other*[id number] 06/02/2010 04/18/2011 Overview: PROJECT: #[id number], SPONSOR: Aileen, PI: Adolfo De Jesus MD [...] can be closed. CONTACT: Roberto Carlos Huertas, Drug Regulatory Affairs Specialist Type 2 diabetes mellitus wit h [...] EDT Anticoagulation Pharmacy Call Center WB [address]60 [facility] [place] [address] Ccps, [facility] 58 60 [facility] [place] [address] 06/04/2023 1:30 PM EDT Office Visit Allergy/Immunology [facility] [place] 200 [facility] [place] [address] Macario Pathak MD [address] [place] [address] 06/10/2023 12:20 PM EDT Office Visit Family Medicine [address] [phone] Shara Ray MD [address] [place] [address] [place] [address] 06/11/2023 1:30 PM EDT Scheduled Telephone [facility], [facility] [address] [facility] [place] [address] Vee Santacruz RDN [address] [facility] [place] [address] 06/20/2023 5:30 PM EDT Home Visit [facility], [facility] 132 [facility] [place] [address] Valentina Laws, TANISHA 132 [facility] [place] [address] 06/21/2023 8:00 AM EDT Laboratory Lab Mobile Phlebotomy [facility] [address] [place] [address] [facility], [facility] Mobile Home Draw [address] [place], [place] [address] 06/21/2023 2:30 PM EDT Office Visit Cardiology, [facility] [address] [place] [address] Hadley Molina MD [address] [place] [address] 06/24/2023 11:00 AM EDT Office Visit Hematology/Oncology [facility] [place] [address] [place] [phone] Bouchra Del Cid CRNP 400 [facility] [place] [address] 07/04/2023 2:40 PM EDT Office Visit Nephrology [address] [place] [address] Aliyah Lacey MD [address] [place] [address] 08/05/2023 1:00 PM EDT Nurse Only Ancillary [address] [place] [address] [place], Nurse [address] [place] [address] 09/20/2023 8:00 AM EDT Laboratory Lab Mobile Phlebotomy [facility] [address] [place] [address] [facility], [facility] Mobile Home Draw [address] [place] [address] 09/24/2023 11:30 AM EDT Office Visit Nephrology, [facility] [address] [place] [address] Kary Pena PA-C [address] [place] [address] 12/20/2023 8:00 AM EDT Laboratory Lab Mobile Phlebotomy [facility] [address] [place], [place] [id number] [facility], [facility] Mobile Home Draw [address] [place] [address] 03/27/2024 8:00 AM EST Laboratory Lab Mobile Phlebotomy [facility] [address] [place] [address] [facility], [facility] Mobile Home Draw [address] [place] [address] Scheduled Procedures Name Priority Associated Diagnoses Date/Ti [...] Additional history exists CKD PHOS USE SMARTSET 03069 03/21/2024 02/0 02/2023, 12/19/2022, 11/28/2022, Additional history exists Albumin/Creatinine Ratio 05/06/2024 03/2 024, 12/03/2022, 02/05/2022, Additional history exists CKD HGB USE SMARTSET 65426 05/06/202405/06, 03/06/2023, 03/06/2023, Additional history exists O2 [...] this encounter Medical Devices Implanted Type Area Cyber Security Manager Device Identifier Shelf Expiration Date Model / Serial / Lot [place] Suture Biocomposite - Sn/A - [id number] Implanted:Qty: 2 on 12/13/2021 by Moris Jimenez DO at OR [facility] Left: Leg Lower [employer] 07/18/2024 [id number] / N/A / [id number] Vitoss Bbtrauma Foam Pack - [id number] - [id number] Implanted:Qty: 1 on 12/13/2021 by Moris Jimenez DO at OR [facility] Left: Leg Lower MICHA : TRAUMA 01/15/[id number] / [id number] / [id number] documented as of this encounter Advance Directives Latest Code Status on File Code Status Date Activated Date Inactivated Comments Full Code 12/12/2021 7:18 PM 12/20/2021 6:08 PM This order reflects the patients wishes and were consensually agreed upon. Question Answer Comments Discussion of Advance Directives occurred with: Patient Care Teams Blueprint Clerk Relationship Specialty Start Date End Date Shara Ray MD [address] [place] [address] [place] [address] PCP - General Family Medicine 03/08/23 documented as of this encounter
--- OUTSIDE RECORDS SUMMARY | 2023-07-10 16:53 | External Medical Summary | Summary of Care ---
Author Name Unknown Organization [facility] Address 100 [facility] [place] [address] Phone [phone] Care Team Providers Care First Aid Instructor Name Role Phone Shara Ray MD Primary Care Provide r Reason for Visit * Reason Comments [facility]: Maintenance Encounter Details Date Type Department Care Team (Late st Contact Info) Description 05/14/2023 4:00 PM EDT Home Visit [facility], [facility] [place] [address] Valentina Laws RN 132 [facility] [place] [address] Allergies Active Allergy Reactions Criticality Noted Date Comments Vinecnt Inhibitors 11/13/2005 cough Budesonide Other (Please comment) [...] as of this encounter (statuses as of 05/27/2023) Medications Medication Sig Dispensed Refills Start Date [...] Tablet 1 02/05/2023 02/05/20 24 Active Nystatin 205380 UNIT/ML Mouth/Throat SuspensionIndicatio ns:Thrush Swish and swallow 5 mL in the morning and 5 mL at noon and 5 mL in the evening and 5 mL before bedtime. For thrush.. 240 mL 1 02/14/2023 Active Azelastine HCl 0.1 % Nasal Solution (Astelin) ADMINISTER INTO NOSTRIL TWO SPRAYS IN THE MORNING AND TWO SPRAYS BEFORE BEDTIME 30 mL 2 03/06/2023 03/05/19 25 Active Warfarin Sodium 2.5 MG Oral Tablet [...] the morning. 45 Tablet 3 05/02/2023 Active Metoclopramide HCl 10 MG Oral Tablet (Reglan)Indications :Nausea TAKE ONE TABLET BY MOUTH EVERY MORNING 30 MINUTES BEFORE A MEAL 90 Tablet 1 06/04/2022 05/23/19 24 Discontinu ed(Refill) documented as of this encounter (statuses as of 05/27/2023) Active Problems Problem Noted Date Diagnosed Date Major depressive disorder, recurrent, moderate 0 04/03/2023 Last Assessment & Plan: Mood stable on current dose celexa Other persistent atrial fibrillation 04/03/2023 Last Assessment & Plan: Rate controlled Continue coumadin Atherosclerosis of [place] co ronary artery without angina pectoris 04/03/2023 [...] IM/IV Chest Xray Additional Comments: Followed by renewal specialist - [facility] Rashel Sales [facility] [...] the Comments) Remote Patient Monitoring Vendor: [facility] Device(s): Connected Scale [...] & Plan: Symptoms well controlled on omeprazole technician terminal and repeater current use of anticoagulant therapy 0 05/10/2004 Overview: ICD-10 update of inactive term Rheumatic heart disease 03/05/2002 Old myocardial infarct 01/02/2001 Last Assessment & Plan: Continue Crestor 20 mg daily S/P mitral valve replacement Last Assessment & Plan: Chronic AC coumadin Atherosclerosis of [place] ronary artery of [place] heart without angina pectoris documented as of this encounter (statuses as of 05/27/2023) Resolved Problems Problem Noted Date Diagnosed Date [...] Overview: Per CKD protocol #1 ORBIT-AF Research Other*[id number] 06/02/2010 04/18/2011 Overview: PROJECT: #[id number], SPONSOR: Aileen, PI: Adolfo De Jesus MD [...] can be closed. CONTACT: Roberto Carlos Huertas, Professor Of Architecture Type 2 diabetes mellitus wit h hemoglobin [...] as of this encounter (statuses as of 05/27/2023) Immunizations Name Administration Dates Next Due COVID-19 [...] Sign Reading Time Taken Comments Blood Pressure 118/54 05/14/2023 2:58 PM EDT Pulse 72 05/14/2023 2:58 PM EDT Temperature 36.8 C (98.2 F) 05/14/2023 2:58 PM ED T Respiratory Rate 18 05/14/2023 2:58 PM EDT Oxygen Saturation 97% 05/14/2023 2:58 PM EDT Inhaled Oxygen Concentration - - Weight 64.2 kg (141 lb 9.6 oz) 05/14/2023 2:58 P M EDT Height - - Body Mass Index 31.75 03/19/2023 1:02 PM EST documented in this encounter Functional Status Functional [...] Progress Notes * Valentina Laws RN - 05/14/2023 2:17 PM EDT Images from the original note were not included. [facility] [place] Visit Date: 05/14/2023 Time: 2:24 PM Name: Abdi Bowling : 1955 Current Concerns: Patient seen for follow up- Afib, CHF, DM2, H/O falls Seen by nephrology 05/06 Most recent GFR 05/06-- 32 Being seen by pain clinic- [facility] Has resumed Torsemide 50mg daily- 3/14/24 VS wnl Lungs clear bilaterally Sob with exertion Walker with ambulation Mild nonpitting edema BLE See weights below Voiding without difficulty Bowels wnl Appetite good Taking fluids well Very knowledgeable and compliant with direction from providers. Problems/Symptoms: Review of Systems Constitutional: Negative. HENT: Negative. Respiratory: Positive for shortness of breath. Cardiovascular: Positive for leg swelling (very mild nonpitting). Gastrointestinal: Negative. Endocrine: Negative. Genitourinary: Negative. Musculoskeletal: Positive for gait problem. Skin: Negative. Hematological: Negative. Psychiatric/Behavioral: Negative. Physical Exam: BP 118/54 (BP Site: Left Arm, BP Position: Sitting, BP Cuff Size: Regular) | Pulse 72 | Temp 36.8 C (98.2 F) (Tympanic) | Resp 18 | Wt 64.2 kg (141 lb 9.6 oz) | SpO2 97% | BMI 31.75 kg/m | BSA 1.59 m Pain 0 Physical Exam Constitutional: Appearance: Normal appearance. Cardiovascular: Rate and Rhythm: Normal rate. Rhythm irregular. Pulses: Normal pulses. Heart sounds: Normal heart sounds. Pulmonary: Effort: Pulmonary effort is normal. Breath [...] and Affect: Mood normal. Behavior: Behavior normal. [facility]-10 Completed this Visit: No. No falls since last visit Treatment/Plan: AMC scales daily Renal diet- followed by nephrology Fluid restriction <2L daily Elevate ble prn edema Continue medications as prescribed Keep all upcoming MD appointments Fall precautions- walker RN CM follow up in 7 weeks Home Interventions Provided: Reinforced current Plan of Care, including self-management and medication regimen Patient's Goals of Care: Stay out of the hospital Want to go to the [employer] games this year Pain control Get my kidneys straightened out Patient's 'Red Flags': Falls Increase swelling LE, Increase SOB Weight gain 2-3lb/day or 3-5 lb week Patient Needs to Remember: Call [facility] with any medical concerns/ red flags Referrals Needed: N/a Follow Up: Is there cellular connectivity/connectivity in the home? Yes Does the patient have internet in the home? Yes Patient encouraged to call the intake phone number for all urgent but not emergent issues. Scheduled to follow up with patient in 7 weeks. Valentina Stallworth RN 05/14/2023 2:24 PM documented in this encounter Plan of Treatment Upcoming Encounters Date Type Department Care Team (Late st Contact Info) Description 05/29/2023 7:05 AM EDT Laboratory Lab Mobile Phlebotomy [facility] [address] [place] [address] [facility], [facility] Mobile Home Draw [address] [place] [address] 05/29/2023 6:00 PM EDT Anticoagulation Pharmacy Call Center 58-60 [facility] [place] [address] Ccps, [facility] 58 60 [facility] [place] [address] 06/04/2023 1:30 PM EDT Office Visit Allergy[place]Immunology [facility] [place] 200 [facility] [place] [address] Macario Pathak MD 200 [facility] [place] [address] 06/10/2023 12:20 PM EDT Office Visit Family Medicine [address] [place] [address] Shara Ray MD [address] [place] [address] [place] [address] 06/11/2023 1:30 PM EDT Scheduled Telephone [facility], [facility] [address] [facility] [place] [address] Vee Santacruz RDN 1000 [address] [facility] [place] [address] 06/20/2023 5:30 PM EDT [facility] Visit [facility], [facility] [address] [place] [address] Valentina Laws, RN [address] [place] [address] 06/21/2023 8:00 AM EDT Laboratory Lab Mobile Phlebotomy [facility] [address] [place] [address] [facility], [facility] Mobile Home Draw [address] [place] [address] 06/21/2023 2:30 PM EDT Office Visit Cardiology, [facility] [place] [address] Hadley Molina MD 132 [facility] [place] [address] 06/24/2023 11:00 AM EDT Office Visit Hematology/Oncology [facility] [place] 200 [facility] [place] [address] Bouchra Del Cid CRNP 400 [place] [address] 07/04/2023 2:40 PM EDT Office Visit Nephrology [address] [place] [address] Aliyah Lacey MD 200 [facility] [place] [address] 08/05/2023 1:00 PM EDT Nurse Only Ancillary [address] [place] [address] [place], Nurse [address] [place] [address] 09/20/2023 8:00 AM EDT Laboratory Lab Mobile Phlebotomy [facility] [address] [place] [address] [facility], [facility] Mobile Home Draw [address] [place] [address] 09/24/2023 11:30 AM EDT Office Visit Nephrology, [facility] 200 [facility] [place] [address] ZemaitisKary PA-C 200 [facility] [place] [address] 12/20/2023 8:00 AM EDT Laboratory Lab Mobile Phlebotomy [facility] [address] [place] [address] [facility], [facility] Mobile Home Draw [address] [place] [address] 03/27/2024 8:00 AM EST Laboratory Lab Mobile Phlebotomy [facility] [address] [place] [address] [facility], [facility] Mobile Home Draw [address] [place] [address] Scheduled Procedures Name Priority Associated Diagnoses Date/Ti [...] Additional history exists CKD PHOS USE SMARTSET 62969 03/21/2024 02/0 02/2023, 12/19/2022, 11/28/2022, Additional history exists Albumin/Creatinine Ratio 05/06/2024 024, 12/03/2022, 02/05/2022, Additional history exists CKD HGB USE SMARTSET 37688 05/06/202405/06, 03/06/2023, 03/06/2023, Additional history exists O2 [...] this encounter Medical Devices Implanted Type Area Director Of Compliance Device Identifier Shelf Expiration Date Model / Serial / Lot [place] Suture Biocomposite - Sn/A - [id number] Implanted:Qty: 2 on 12/13/2021 by Moris Jimenez, at OR [facility] Left: Leg Lower [employer] 07/18/2024 AR-[id number] / N/A / [id number] Vitoss Bbtrauma Foam Pack - [id number] - [id number] Implanted:Qty: 1 on 12/13/2021 by Moris Jimenez, DO at OR [facility] Left: Leg Lower MICHA : TRAUMA 01/15/2022 [id number] / [id number] / [id number] documented as of this encounter Advance Directives Latest Code Status on File Code Status Date Activated Date Inactivated Comments Full Code 12/12/2021 7:18 PM 12/20/2021 6:08 PM This order reflects the patients wishes and were consensually agreed upon. Question Answer Comments Discussion of Advance Directives occurred with: Patient Care Teams First Aid Instructor Relationship Specialty Start Date End Date Shara Ray MD [address] [place] [address] [place] [address] PCP - General Family Medicine 03/08/23 documented as of this encounter
--- OUTSIDE RECORDS SUMMARY | 2023-07-10 16:53 | External Medical Summary ---
Author Name Unknown Address Unknown Organization K01:[facility] [address] [place] [address] Laboratory Report Ordering Provider Test Date Status SONIA PANTOJA 05/29/2023 10:32:00 Final Standing order for pt/inr. < br/>Please draw pt/inr every 1 to 4 weeks as requested.
Results to [facility]

Warfarin Therapy
INR: 2.0-3.0 conventional anticoagulation
INR: 2.5-3.5 high intensity anticoagulation Observation Date Value Abnormality Reference (Units ) Status PT 05/29/2023 10:32:00 24.6 Above high normal 11 .6-15.2 (seconds) Final INR 05/29/2023 10:32:00 2.2 Above high normal 0. 8-1.2 Final Performing Location [facility] - [address] [place] [address]
--- OUTSIDE RECORDS SUMMARY | 2023-07-10 16:53 | External Medical Summary | Summary of Care ---
Author Name Unknown Organization [facility] Address [address] [facility] [place] [address] Phone [phone] Care Team Providers Care Drywall Finishing Foreman Name Role Phone Shara Ray MD Primary Care Provide r Reason for Visit * Reason Onset Date Comments Advice 05/29/2023 Patient is reque sting to speak to a nurse at this clinic on this patient. Medication Question 05/29/2023 Encounter Details Date Type Department Care Team (Late st Contact Info) Description 05/29/2023 Telephone Family [address] [place] [address] Shara Ray MD [address] [place] [address] [place] [phone] Advice (Patient is requesting to speak to [...] 200 Tablet 1 02/05/2023 4 Active Nystatin 544512 UNIT/ML Mouth/Throat SuspensionIndication s:Thrush Swish and swallow [...] Plan: Rate controlled Continue coumadin Atherosclerosis of [place] co ronary artery without angina pectoris 04/03/2023 [...] IM/IV Chest Xray Additional Comments: Followed by pvc monitor - Dr. Rashel Sales [facility] Closed nondisplaced fracture of left tibial tuberosity with routine healing 12/12/2021 Mild protein-calorie malnutrition 12/05/2021 Controlled substance agreement signed 12/05/2021 Hematoma of leg, left, subsequent encounter 09/2021 Overview: [facility] ER ulstrasound shows hematoma calf, INR [...] & Plan: Symptoms well controlled on omeprazole MCFP current use of anticoagulant therapy 0 05/10/2004 Overview: ICD-10 update of inactive term Rheumatic heart disease 03/05/2002 Old myocardial infarct 01/02/2001 Last Assessment & Plan: Continue Crestor 20 mg daily S/P mitral valve replacement Last Assessment & Plan: Chronic AC coumadin Atherosclerosis of [place] co ronary artery of [place] heart without angina pectoris documented as of this encounter (statuses as of 05/29/2023) Resolved Problems Problem Noted Date Diagnosed Date Resolved Date Complicated UTI (urinary tract infection) 12/20/2021 05/17/2022 Chronic obstructive pulmonary disease 08/21/2021 08/30/2022 Overview: Per COPD GOLD Classification Last Assessment & Plan: No SOB. O2 stable on RA Continue Dujames and Daniella Chronic diastolic CHF (conge stive heart failure) [...] Overview: Per CKD protocol #1 ORBIT-AF Research Other*[id number] 06/02/2010 04/18/2011 Overview: PROJECT: #[id number], SPONSOR: Geovanna[employer]Geovanna, PI: Adolfo De Jesus MD [...] can be closed. CONTACT: Roberto Carlos Huertas, Closing Manager Type 2 diabetes mellitus wit h hemoglobin A1c goal of less than 7.0% 04/24/2010 08/29/2018 Overview: ICD-10 update of inactive term ACTIVE CASE MANAGEMENT Kassie Anthony RN [phone] 05/10/19 10 12/05/2009 ADVANCE DIRECTIVE INFORMATION 05/09/2009 [...] encounter Miscellaneous Notes * Telephone Encounter - Shara Ray MD - 05/29/2023 1:35 PM EDT Yes from my chart review pt is okay to take Butrans patch Clinical note: - I do not prescribe tramadol anymore * Telephone Encounter - Sara Lackey LPN - 05/29/2023 11:06 AM EDT Beth from [facility]. States that SOIF Clinton is asking if PCP would be ok with her-SOFI Shook prescribing the pt a Butrans patch 5 mcg/hr? Please advise. * Telephone Encounter - Nick Kiser OSA - 05/29/2023 11:02 AM EDT Reason for patient's call: Beth from [facility]. Patient is requesting to speak to a nurse at this clinic on this patient. Caller was transferred to [facility] at the nurse line. documented in this encounter Plan of Treatment Upcoming Encounters Date Type Department Care Team (Late st Contact Info) Description 05/29/2023 6:00 PM EDT Anticoagulation Pharmacy Call Center [address] [facility] [place] [address] Ccps, [facility] 58 60 [facility] [place] [address] 06/04/2023 1:30 PM EDT Office Visit Allergy/Immunology [facility] [place] [address] [place] [address] Macario Pathak MD [address] [place] [address] 06/10/2023 12:20 PM EDT Office Visit Family Medicine [address] [phone] Shara Ray MD [address] [place] [address] [place] [address] 06/11/2023 1:30 PM EDT Scheduled Telephone [facility], [facility] [address] [facility] [place] [address] Vee Santacruz RDN [address] [facility] [place] [address] 06/20/2023 5:30 PM EDT Home Visit [facility], [facility] 132 [facility] [place] [address] Valentina Laws, RN 132 [facility] [place] [address] 06/21/2023 8:00 AM EDT Laboratory Lab Mobile Phlebotomy [facility] [address] [place] [address] [facility], [facility] Mobile Home Draw [address] [place] [address] 06/21/2023 2:30 PM EDT Office Visit Cardiology, [facility] [address] [place] [place] [address] Hadley Molina MD [address] [place] [address] 06/24/2023 11:00 AM EDT Office Visit Hematology/Oncology [facility] 200 [facility] [place] [phone] Bouchra Del Cid CRNP [address] [place] [address] 07/04/2023 2:40 PM EDT Office Visit Nephrology [address] [place] [address] Aliyah Lacey MD 200 [facility] [place] [address] 08/05/2023 1:00 PM EDT Nurse Only Ancillary [address] [place] [address] [place], Nurse [address] [place] [address] 09/20/2023 8:00 AM EDT Laboratory Lab Mobile Phlebotomy [facility] [place] [address] [place] [address] [facility], [facility] Mobile Home Draw [address] [place] [address] 09/24/2023 11:30 AM EDT Office Visit Nephrology, [facility] 200 [facility] [place] [address] Kary Pena PA-C [address] [facility], [place] [address] 12/20/2023 8:00 AM EDT Laboratory Lab Mobile Phlebotomy [facility] [place] 100 [place] [facility] [place] [address] Gm, Gm Mobile Home Draw [address] [place] [address] 03/27/2024 8:00 AM EST Laboratory Lab Mobile Phlebotomy [facility] [place] [address] [place] [address] Gm, [facility] Mobile Home Draw [address] [place], [place] [id number] Scheduled Procedures Name Priority Associated Diagnoses Date/Ti [...] Additional history exists CKD PHOS USE SMARTSET 38364 03/21/2024 02/0 02/2023, 12/19/2022, 11/28/2022, Additional history exists Albumin/Creatinine Ratio 05/06/2024 024, 12/03/2022, 02/05/2022, Additional history exists CKD HGB USE SMARTSET 49259 05/06/202405/06, 03/06/2023, 03/06/2023, Additional history exists O2 [...] this encounter Medical Devices Implanted Type Area Filbert Grower Device Identifier Shelf Expiration Date Model / Serial / Lot [place] Suture Biocomposite - Sn/A - [id number] Implanted:Qty: 2 on 12/13/2021 by Moris Jimenez, DO at OR [facility] Left: Leg Lower [employer] 07/18/2024 [id number] / N/A / [id number] Vitoss Bbtrauma Foam Pack - [id number] - [id number] Implanted:Qty: 1 on 12/13/2021 by Moris Jimenez, DO at OR [facility] Left: Leg Lower MICHA : TRAUMA 01/15/2022 [id number] / [id number] / [id number] documented as of this encounter Advance Directives Latest Code Status on File Code Status Date Activated Date Inactivated Comments Full Code 12/12/2021 7:18 PM 12/20/2021 6:08 PM This order reflects the patients wishes and were consensually agreed upon. Question Answer Comments Discussion of Advance Directives occurred with: Patient Care Teams Drywall Finishing Foreman Relationship Specialty Start Date End Date Shara Ray MD [address] [place] [address] [place] [address] PCP - General Family Medicine 03/08/23 documented as of this encounter
--- OUTSIDE RECORDS SUMMARY | 2023-07-10 16:53 | External Medical Summary | Summary of Care ---
Author Name Unknown Organization [facility] Address [address] [facility] [place] [address] Phone [phone] Care Team Providers Care Patrol Judge Name Role Phone Shara Ray MD Primary Care Provide r Reason for Visit * Reason Onset Date Comments Encounter Created in Error 05/21/2023 Encounter Details Date Type Department Care Team (Latest Contact Info) Description 05/21/2023 12:30 PM EDT Scheduled Telephone [facility], [facility] [address] [facility] [place] [address] Vee Santacruz, RASHAUN [address] [facility] [place] [address] Canceled (Clinician Appt Cancel Pt Seen Sooner) Allergies Active Allergy Reactions Criticality Noted Date [...] as of this encounter (statuses as of 05/26/2023) Medications Medication Sig Dispensed Refills Start Date [...] 200 Tablet 1 02/05/2023 4 Active Nystatin 949043 UNIT/ML Mouth/Throat SuspensionIndication s:Thrush Swish and swallow [...] tablets by mouth [facility] 180 Tablet 3 03/06/2023 Active Nitroglycerin [...] the morning. 100 Tablet 1 05/15/2023 Active documented as of this encounter (statuses as of 05/26/2023) Active Problems Problem Noted Date Diagnosed Date Major depressive disorder, recurrent, moderate 0 04/03/2023 Last Assessment & Plan: Mood stable on current dose celexa Other persistent atrial fibrillation 04/03/2023 Last Assessment & Plan: Rate controlled Continue coumadin Atherosclerosis of [place] co ronary artery without angina pectoris 04/03/2023 [...] IM/IV Chest Xray Additional Comments: Followed by bilingual teacher assistant - Dr. 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 0 05/10/2004 Overview: ICD-10 update of inactive term Rheumatic heart disease 03/05/2002 Old myocardial infarct 01/02/2001 Last Assessment & Plan: Continue Crestor 20 mg daily S/P mitral valve replacement Last Assessment & Plan: Chronic AC coumadin Atherosclerosis of [place] co ronary artery of [place] heart without angina pectoris documented as of this encounter (statuses as of 05/26/2023) Resolved Problems Problem Noted Date Diagnosed Date [...] Overview: Per CKD protocol #1 ORBIT-AF Research Other*[id number] 06/02/2010 04/18/2011 Overview: PROJECT: #[id number], SPONSOR: Aileen, PI: Adolfo De Jesus MD [...] can be closed. CONTACT: Roberto Carlos Huertas, Aircraft Delivery Checker Type 2 diabetes mellitus wit h hemoglobin [...] as of this encounter (statuses as of 05/26/2023) Immunizations Name Administration Dates Next Due COVID-19 mRNA, LNP-s, No Pre serve, 2-Dose Series (Moderna) 04/19/2020,03/22/2020 COVID-19, MRNA-LNP, 23-24, P F, 30 MCG/0.3 mL, 12 YRS AND ABOVE, IM (SoundFit-Comirnaty) 12/03/2022 COVID-19, mRNA, LNP-s, PF, B ooster, [...] AM EDT Laboratory Lab Mobile Phlebotomy [facility] [address] [place] [address] [facility], [facility] Mobile Home Draw [address] [place] [address] 05/29/2023 6:00 PM EDT Anticoagulation Pharmacy Call Center [address] [place] [address] [facility] 58 [address] [place] [address] 06/04/2023 1:30 PM EDT Office Visit Allergy/Immunology [facility] [place] 200 [facility] [place] [address] Macario Pathak MD [address] [place] [address] 06/10/2023 12:20 PM EDT Office Visit Family Medicine [address] [place] [address] Shara Ray MD [address] [place] [address] [place] [address] 06/11/2023 1:30 PM EDT Scheduled Telephone [facility], [facility] [address] [facility] [place] [address] Vee Santacruz, KOSTAN [address] [facility] [place] [address] 06/20/2023 5:30 PM EDT Home Visit [facility], [facility] 132 [facility] [place] [address] Valentina Laws RN 132 [place] [address] 06/21/2023 8:00 AM EDT Laboratory Lab Mobile Phlebotomy [facility] [address] [place], [place] [id number] [facility], [facility] Mobile Home Draw [address] [place] [address] 06/21/2023 2:30 PM EDT Office Visit Cardiology, [facility] 132 [facility] [place] [address] Hadley Molina MD 132 [facility] [address] 06/24/2023 11:00 AM EDT Office Visit Hematology/Oncology [facility] 200 [facility] [place] [phone] Bouchra Del Cid CRNP 400 [facility] [place] [address] 07/04/2023 2:40 PM EDT Office Visit Nephrology [address] [place] [address] Aliyah Lacey MD 200 [facility] [place] [address] 08/05/2023 1:00 PM EDT Nurse Only Ancillary [place] [place] [address] Andriy, Nurse [address] [place] [address] 09/20/2023 8:00 AM EDT Laboratory Lab Mobile Phlebotomy [facility] [address] [place] [address] [facility], [facility] Mobile Home Draw [address] [place] [address] 09/24/2023 11:30 AM EDT Office Visit Nephrology, [facility] [address] [place] [address] ZeKary bliss PA-C [address] [place] [address] 12/20/2023 8:00 AM EDT Laboratory Lab Mobile Phlebotomy [facility] [address] [place] [address] [facility], [facility] Mobile Home Draw [address] [place] [address] 03/27/2024 8:00 AM EST Laboratory Lab Mobile Phlebotomy [facility] [address] [place] [address] [facility], [facility] Mobile Home Draw [address] [place] [address] Scheduled Procedures Name Priority Associated Diagnoses Date/Ti [...] Additional history exists CKD PHOS USE SMARTSET 48413 03/21/2024 02/0 02/2023, 12/19/2022, 11/28/2022, Additional history exists Albumin/Creatinine Ratio 05/06/2024 024, 12/03/2022, 02/05/2022, Additional history exists CKD HGB USE SMARTSET 85798 05/06/202405/06, 03/06/2023, 03/06/2023, Additional history exists O2 ASSESSMENT COMPLETED IN PAST YEAR FOR COPD 05/13/2024 05/14/2023 Depression Screening 05/23/2024 05/24/2023 DTaP,Tdap,and Td Vaccines (3 - Td or [...] this encounter Medical Devices Implanted Type Area Archives Specialist Device Identifier Shelf Expiration Date Model / Serial / Lot [place] Suture Biocomposite - Sn/A - [id number] Implanted:Qty: 2 on 12/13/2021 by Moris Jimenez, DO at OR [facility] Left: Leg Lower [employer] 07/18/2024 [id number] / N/A / [id number] Vitoss Bbtrauma Foam Pack - [id number] - [id number] Implanted:Qty: 1 on 12/13/2021 by Moris Jimenez, DO at OR [facility] Left: Leg Lower MICHA : TRAUMA 01/15/2022 / [id number] / [id number] documented as of this encounter Advance Directives Latest Code Status on File Code Status Date Activated Date Inactivated Comments Full Code 12/12/2021 7:18 PM 12/20/2021 6:08 PM This order reflects the patients wishes and were consensually agreed upon. Question Answer Comments Discussion of Advance Directives occurred with: Patient Care Teams Patrol Judge Relationship Specialty Start Date End Date Shara Ray MD [address] [place] [address] [place] [address] PCP - General Family Medicine 03/08/23 documented as of this encounter
--- OUTSIDE RECORDS SUMMARY | 2023-07-10 16:53 | External Medical Summary ---
Author Name Unknown Address Unknown Organization K01:[facility] [address] [place] [address] Laboratory Report Ordering Provider Test Date Status SEAN OLIVAREZJESSEE 05/29/2023 10:32:00 Final Observation Date Value Abnormality Reference (Units ) Status Triglyceride 05/29/2023 10:32:00 66 <=174 ( mg/dL) Final Triglyceride Reference Range s (mg/dL):
<150 Acceptable
150-174 Borderline high
175-499 High
>=500 Very high Cholesterol 05/29/2023 10:32:00 120 <200 (mg /dL) Final Total Cholesterol Reference Ranges (mg/dL):
<200 Desirable
200-239 Borderline high
>=240 High HDL 05/29/2023 10:32:00 54 >49 (mg/dL ) Final HDL Cholesterol Reference Ra nges (mg/dL):
>=60 High (Desirable)
<50 Low (Undesirable) For Females
<40 Low (Undesirable) For Males NON-HDL CHOLESTEROL 05/29/2023 10:32:00 66 <=159 (mg/dL) Final Non-HDL Cholesterol Referenc e Range (mg/dL):
<100 Target level for high risk ASCVD patient
<130 Optimal for general population
130-159 Near optimal for general population
160-189 Borderline High
190-219 High
>=220 Very High LDL, (calculated) 05/29/2023 10:32:00 53 <= 129 (mg/dL) Final LDL Cholesterol Reference Ra nges (mg/dL):
<70 Target level for high risk ASCVD patient
<100 Optimal for general population
100-129 Near optimal for general population
130-159 Borderline high
160-189 High
>=190 Very high Performing Location [facility] [address] [place] [facility] [address]
--- OUTSIDE RECORDS SUMMARY | 2023-07-10 16:54 | External Medical Summary | Summary of Care ---
Author Name Unknown Organization [facility] Address [address] [facility] [address] Phone [phone] Care Team Providers Care Senior Systems Developer Name Role Phone Mercedes Gorman MD Primary Care Provide r Reason for Visit * Reason Comments Medication Refill Encounter Details Date Type Department Care Team (Late st Contact Info) Description 05/23/2023 Refill Family Medicine [address] [place] [phone] [place] [address] Nausea Allergies Active Allergy Reactions Criticality Noted Date [...] as of this encounter (statuses as of 05/24/2023) Medications Medication Sig Dispensed Refills Start Date [...] Tablet 1 02/05/2023 02/05/20 24 Active Nystatin 693484 UNIT/ML Mouth/Throat SuspensionIndicatio ns:Thrush Swish and swallow [...] tablets by mouth daily as directed by [facility] 180 Tablet 3 03/06/2023 Active Nitroglycerin [...] 90 Tablet 1 05/24/2023 05/24/19 25 Active Metoclopramide HCl 10 MG Oral Tablet (Reglan)Indications :Nausea TAKE ONE TABLET BY MOUTH EVERY MORNING 30 MINUTES BEFORE A MEAL 90 Tablet 1 06/04/2022 05/23/19 24 Discontinu ed(Refill) documented as of this encounter (statuses as of 05/24/2023) Active Problems Problem Noted Date Diagnosed Date Major depressive disorder, recurrent, moderate 0 04/03/2023 Last Assessment & Plan: Mood stable on current dose celexa Other persistent atrial fibrillation 04/03/2023 Last Assessment & Plan: Rate controlled Continue coumadin Atherosclerosis of [place] co ronary artery without angina pectoris 04/03/2023 [...] IM/IV Chest Xray Additional Comments: Followed by job hand - Dr. 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 0 05/10/2004 Overview: ICD-10 update of inactive term Rheumatic heart disease 03/05/2002 Old myocardial infarct 01/02/2001 Last Assessment & Plan: Continue Crestor 20 mg daily S/P mitral valve replacement Last Assessment & Plan: Chronic AC coumadin Atherosclerosis of [place] co ronary artery of [place] heart without angina pectoris documented as of this encounter (statuses as of 05/24/2023) Resolved Problems Problem Noted Date Diagnosed Date [...] Overview: Per CKD protocol #1 [employer] Other*[id number] 06/02/2010 04/18/2011 Overview: PROJECT: #[id number], SPONSOR: Aileen, PI: Adolfo De Jesus MD [...] can be closed. CONTACT: Roberto Carlos Huertas, Certified Adapted Physical Educator Type 2 diabetes mellitus wit h hemoglobin [...] as of this encounter (statuses as of 05/24/2023) Immunizations Name Administration Dates Next Due COVID-19 [...] Telephone Encounter - Mercedes Gorman MD - 05/24/2023 11:55 AM EDT Signed Prescriptions: Disp Refills Metoclopramide HCl 10 MG Oral Tablet (Regl*90 Tab*1 Sig: TAKE ONE TABLET BY MOUTH EVERY MORNING 30 MINUTES BEFORE A MEAL Authorizing Provider: MERCEDES GORMAN * Telephone Encounter - Jose Pop [facility] - 05/24/2023 11:21 AM EDT Pending Prescriptions: Disp Refills Metoclopramide HCl 10 MG Oral Tablet (Regl*90 Tab*1 Sig: TAKE ONE TABLET BY MOUTH EVERY MORNING 30 MINUTES BEFORE A MEAL * Telephone Encounter - Jose Pop [facility] - 05/24/2023 11:21 AM EDT Refill pharmacists currently not authorized to approve refills for this class of medication per refill protocol. Please approve if appropriate. Thanks, Jose Pop, PharmD Clinical Pharmacist Telepharmacy [phone] 05/24/2023, 11:21 AM documented in this encounter Plan of Treatment Upcoming Encounters Date Type Department Care Team (Late st Contact Info) Description 05/29/2023 7:05 AM EDT Laboratory Lab Mobile Phlebotomy [facility] [address] [place] [address] [facility], [facility] Mobile Home Draw [address] [facility] [place] [address] 05/29/2023 6:00 PM EDT Anticoagulation Pharmacy Call Center WB [address] [facility] [place] [address] C[facility], [facility] 58 60 [facility] [place] [address] 06/04/2023 1:30 PM EDT Office Visit Allergy/Immunology [place] [address] [place] [address] [address] Macario Pathak MD [address] [place] [address] [address] 06/10/2023 12:20 PM EDT Office Visit Family [address] [phone] Mercedes Gorman MD [address] [place] [address] [place] [address] 06/11/2023 1:30 PM EDT Scheduled Telephone [facility], [facility] [address] [facility] [place] [address] Vee Santacruz, KOSTAN [address] [facility] [place] [address] 06/20/2023 5:30 PM EDT Home Visit [facility], [facility] 132 [facility] [place] [address] Valentina Laws RN 132 [facility] [place] [address] 06/21/2023 8:00 AM EDT Laboratory Lab Mobile Phlebotomy [facility] [address] [place] [address] [facility], [facility] Mobile Home Draw [address] [place] [address] 06/21/2023 2:30 PM EDT Office Visit Cardiology, [facility] 132 [facility] [place] [address] Hadley Molina MD 132 [facility] [place] [address] 06/24/2023 11:00 AM EDT Office Visit [facility]ology[facility] 200 [facility] [place] [address] Bouchra Del Cid CRNP [address] [place] [address] 07/04/2023 2:40 PM EDT Office Visit Nephrology [address] [place] [address] Aliyah Lacey MD 200 [facility] [place] [address] 08/05/2023 1:00 PM EDT Nurse Only Ancillary [address] [place] [address] [place], Nurse [address] [place] [address] 09/20/2023 8:00 AM EDT Laboratory Lab Mobile Phlebotomy [facility] [address] [place] [address] [facility], [facility] Mobile Home Draw [address] [place] [address] 09/24/2023 11:30 AM EDT Office Visit Nephrology, [facility] 200 [facility] [place] [address] ZebenyitisKary PA-C [address] [facility] [place] [address] 12/20/2023 8:00 AM EDT Laboratory Lab Mobile Phlebotomy [facility] [address] [place] [address] [facility], [facility] Mobile Home Draw [address] [place] [address] 03/27/2024 8:00 AM EST Laboratory Lab Mobile Phlebotomy [facility] [address] [place], [place] [id number] [facility], l Mobile Home Draw [address] [place] [address] Scheduled Procedures Name Priority Associated Diagnoses Date/Ti [...] Additional history exists CKD PHOS USE SMARTSET 55455 03/21/2024 02/0 02/2023, 12/19/2022, 11/28/2022, Additional history exists Albumin/Creatinine Ratio 05/06/2024 024, 12/03/2022, 02/05/2022, Additional history exists CKD HGB USE SMARTSET 34396 05/06/202405/06, 03/06/2023, 03/06/2023, Additional history exists O2 [...] this encounter Medical Devices Implanted Type Area Parenting Skills Instructor Device Identifier Shelf Expiration Date Model / Serial / Lot [place] Suture Biocomposite - Sn/A - [id number] Implanted:Qty: 2 on 12/13/2021 by Moris Jimenez DO at OR [facility] Left: Leg Lower [employer] 07/18/2024 [id number]-[id number] / N/A / [id number] Vitoss Bbtrauma Foam Pack - [id number] - [id number] Implanted:Qty: 1 on 12/13/2021 by Moris Jimenez DO at OR [facility] Left: Leg Lower MICAH : TRAUMA 01/15/2022 [id number] / [id number] / [id number] documented as of this encounter Visit Diagnoses Diagnosis Nausea Nausea alone documented in this encounter Advance Directives Latest Code Status on File Code Status Date Activated Date Inactivated Comments Full Code 12/12/2021 7:18 PM 12/20/2021 6:08 PM This order reflects the patients wishes and were consensually agreed upon. Question Answer Comments Discussion of Advance Directives occurred with: Patient Care Teams Senior Systems Developer Relationship Specialty Start Date End Date Mercedes Gorman MD [address] [place] [address] [place] [address] PCP - General Family Medicine 03/08/23 documented as of this encounter
--- OUTSIDE RECORDS SUMMARY | 2023-07-10 16:55 | External Medical Summary | Summary of Care ---
Author Name Unknown Organization [facility] Address [address] [facility] [place] [address] Phone [phone] Care Team Providers Care Filing Or Registry Clerk Name Role Phone Shara Ray MD Primary Care Provide r Reason for Visit * Reason Comments Dosage Adjustment Via Phone (anticoag Cl inic) Encounter Details Date Type Department Care Team (Latest Contact Info) Description 05/23/2023 6:00 AM EDT Anticoagulation Pharmacy Call Center [address] [place] [address] [facility] 58 60 [facility] [place] [address] penitentiary current use of anticoagulant therapy*; History [...] as of this encounter (statuses as of 05/23/2023) Medications Medication Sig Dispensed Refills Start Date [...] MORNING 100 Tablet 1 07/21/2022 4 Active Metoclopramide HCl 10 MG Oral Tablet (Reglan)Indications: Nausea TAKE ONE TABLET BY MOUTH EVERY MORNING 30 MINUTES BEFORE A MEAL 90 Tablet 1 06/04/2022 4 Active rOPINIRole HCl 2 MG Oral [...] 200 Tablet 1 02/05/2023 4 Active Nystatin 156437 UNIT/ML Mouth/Throat SuspensionIndication s:Thrush Swish and swallow [...] [facility] 180 Tablet 3 03/06/2023 Active [...] as of this encounter (statuses as of 05/23/2023) Active Problems Problem Noted Date Diagnosed Date [...] IM/IV Chest Xray Additional Comments: Followed by heat treat puller - Dr. Rashel Sales [facility] Closed nondisplaced fracture of left tibial tuberosity [...] the Comments) Remote Patient Monitoring Vendor: [facility] [place] Device(s): Connected Scale Self [...] & Plan: Symptoms well controlled on omeprazole penitentiary current use of anticoagulant therapy 0 05/10/2004 Overview: ICD-10 update of inactive term Rheumatic heart disease 03/05/2002 Old myocardial infarct 01/02/2001 Last Assessment & Plan: Continue Crestor 20 mg daily S/P mitral valve replacement Last Assessment & Plan: Chronic AC coumadin Atherosclerosis of [place] co ronary artery of enterprise heart without angina pectoris documented as of this encounter (statuses as of 05/23/2023) Resolved Problems Problem Noted Date Diagnosed Date Resolved Date Complicated UTI (urinary tract infection) 12/20/2021 05/17/2022 Chronic obstructive pulmonary disease 08/21/2021 08/30/2022 Overview: Per COPD GOLD Classification Last Assessment & Plan: No SOB. O2 stable on RA Continue Duonebs and Breo Chronic diastolic CHF (conge stive heart failure) 07/18/2021 08/21/2021 Cough variant asthma 01/16/2021 03 022 Chronic kidney disease, stage 3b 08/02/2020 [...] Overview: Per CKD protocol #1 [employer]BIT-[employer] Other*[id number] 06/02/2010 04/18/2011 Overview: PROJECT: #[id number], SPONSOR: Aileen, PI: Adolfo De Jesus MD [...] can be closed. CONTACT: Roberto Carlos Huertas, Wide Area Network Engineer Type 2 diabetes mellitus wit h hemoglobin [...] as of this encounter (statuses as of 05/23/2023) Immunizations Name Administration Dates Next Due COVID-19 [...] Answer Date Recorded PHQ Adult Total Score 3 07/30/2022 Hunger Vital Sign Answer Date Recorded Within the past 12 months, y ou worried that your food would run out before you got the money to buy more. Never true 04/03/19 24 Within the past 12 months, t he food you bought just didn't last and you didn't have money to get more. Never true 04/03/2023 Sex and Gender Information Value Date Recorded [...] Progress Notes * Kirby Gates RPh - 05/23/2023 2:12 PM EDT Noted, responded to pt's myG. * Jayy Harper CPhT - 05/23/2023 10:11 AM EDT Contacts Type Contact Phone/Fax 05/23/2023 10:06 AM EDT Phone (Outgoing) Abdi Bowling (Self) [phone] (M) Spoke to Patient Subjective Patient Findings Negatives: Signs/symptoms of thrombosis, Signs/symptoms of bleeding, Change in health, Change in alcohol use, Change in activity, Upcoming invasive procedure, Missed doses, Extra doses, Change in medications, Change in diet/appetite, Bruising Comments: Patient wanted message passed along that she is "very concerned that INR has been subtherapeutic for so long". Advised patient to contact Anticoagulation Clinic if any unusual bruising or bleeding, recent illness, changes in medication, or questions/concerns. PT/INR results, Coumadin dose instructions, and next PT/INR date communicated as noted by Pharmacist: Yes Jayy Harper CPhT 05/23/2023, 10:11 AM * Kirby Gates RPh - 05/23/2023 8:22 AM EDT Images from the original note were not included. Coumadin Clinic (region specific) Objective Current Warfarin Dose As of 05/23/2023 Warfarin maintenance plan: 3.75 mg (2.5 mg x 1.5) every Mon, Wed, Fri; 5 mg (2.5 mg x 2) all other days INR Result As of 05/23/2023 INR goal: 3.0-3.5 INR used for dosin.7 (05/22/2023) Assessment & Plan Warfarin Plan As of 05/23/2023 Full warfarin instructions: 05/22: 6.25 mg; Then increase to 3.75 mg every Mon, Wed; 5 mg all other days Next INR check: 05/29/2023 I sent myG Repeat PT/INR in 1 week(s) Weekly dose: increased Additional Dosing Information: Description [facility] WedFri, prefers Wed ([facility], [facility], or [facility]) Please also send myG Tech to contact patient with dose instructions as noted. Kirby Gates RPh 05/23/2023, 8:22 AM documented in this encounter Plan of Treatment Upcoming Encounters Date Type Department Care Team (Late st Contact Info) Description 05/29/2023 7:05 AM EDT Laboratory Lab Mobile Phlebotomy [facility] [email or web address] [place] [address] [facility], Gml Mobile Home Draw [email or web address] [place] [address] 05/29/2023 6:00 PM EDT Anticoagulation Pharmacy Call Center [address] [place] [address] [facility], [facility] [address] [place] [address] 06/04/2023 1:30 PM EDT Office Visit Allergy/Immunology [facility] [address] [place] [address] Macario Pathak MD [address] [place] [address] 06/10/2023 12:20 PM EDT Office Visit [address] [address] Shara Ray MD [address] [place] [address] [place] [address] 06/11/2023 1:30 PM EDT Scheduled Telephone [facility], [facility] [address] [facility] [place] [address] Vee Santacruz RDN 1000 [address] [facility] [place] [address] 06/20/2023 5:30 PM EDT Home Visit [facility], [facility] 132 [facility] [place] [address] Valentina Laws RN 132 [facility] [place] [address] 06/21/2023 8:00 AM EDT Laboratory Lab Mobile Phlebotomy [facility] [address] [place] [address] [facility], [facility] Mobile Home Draw [address] [place] [address] 06/21/2023 2:30 PM EDT Office Visit Cardiology, [facility] 132 [facility] [place] [address] Hadley Molina MD [address] [place] [address] 06/24/2023 11:00 AM EDT Office Visit Hematology/Oncology [employer] [address] [place] [phone] Bouchra Del Cid CRNP 400 [facility] [place] [address] 07/04/2023 2:40 PM EDT Office Visit Nephrology [address] [place] [address] Aliyah Lacey MD 200 [facility] [place] [address] 08/05/2023 1:00 PM EDT Nurse Only Ancillary [address] [place] [address] [place], Nurse [address] [place] [address] 09/20/2023 8:00 AM EDT Laboratory Lab Mobile Phlebotomy [facility] [address] [place] [address] [facility], [facility] Mobile Home Draw [address] [place] [address] 09/24/2023 11:30 AM EDT Office Visit Nephrology, [facility] 200 [facility] [place] [address] Kary Pena PA-C 200 [facility] [place] [address] 12/20/2023 8:00 AM EDT Laboratory Lab Mobile Phlebotomy [facility] [address] [place] [address] [facility], l Mobile Home Draw [address] [place] [address] 03/27/2024 8:00 AM EST Laboratory Lab Mobile Phlebotomy [facility] [address] [place] [address] [facility], [facility] Mobile Home Draw [address] [place] [address] Scheduled Procedures Name Priority Associated Diagnoses Date/Ti me COLONOSCOPY FLEXIBLE PROXIMAL DIAGNOSTIC Recall Screen for colon cancer Health Maintenance Due Date Last Done Comments Alpha-1 Antitrypsin 07/29/1971 *COPD SEVERITY VERIFIED BY PFT 08/24/2021 COLONOSCOPY-EVERY 3 YRS AGES 18-100 02/23/2023 02/24/2020, 02/24/2020, 07/16/2013, Additional history exists TSH 05/31/2023 05/30/2022, 06/18, 06/28/2020, Additional history exists Depression Screening 07/31/2023 07/30/2022 Diabetic Eye Exam 07/31/2023 07/30/2022, , 12/27/2020, Additional history exists Diabetic Foot Exam 07/31/2023 07/30/2022, 0 09/02/2019, 08/29/2018, Additional history exists HbA1c 10/25/2023 04/24/2023, 11/18, 05/30/2022, Additional history exists GFR 11/07/2023 05/07/2023, 04/18, 04/24/2023, Additional history exists Mammogram 11/16/2023 11/15/2022, 10/20, 07/03/2021, Additional history exists CKD PHOS USE SMARTSET 16581 03/21/2024 02/0 02/2023, 12/19/2022, 11/28/2022, Additional history exists Albumin/Creatinine Ratio 05/06/20242 024, 12/03/2022, 02/05/2022, Additional history exists CKD HGB USE SMARTSET 40521 05/06/202405/06, 03/06/2023, 03/06/2023, Additional history exists O2 [...] this encounter Medical Devices Implanted Type Area Dimension Stone Quarry Supervisor Device Identifier Shelf Expiration Date Model / Serial / Lot [place] Suture Biocomposite - Sn/A - [id number] Implanted:Qty: 2 on 12/13/2021 by Moris Jimenez DO at OR [facility] Left: Leg Lower [employer] 07/18/2024 AR-[id number] / N/A / [id number] Vitoss Bbtrauma Foam Pack - [id number] - [id number] Implanted:Qty: 1 on 12/13/2021 by Moris Jimenez DO at OR [facility] Left: Leg Lower MICHA : TRAUMA 01/15/[id number] / [id number] / [id number] documented as of this encounter Visit Diagnoses [...] Advance Directives occurred with: Patient Care Teams Filing Or Registry Clerk Relationship Specialty Start Date End Date Shara Ray MD [address] [place] [address] [place] [address] PCP - General Family Medicine 03/08/23 documented as of this encounter
--- OUTSIDE RECORDS SUMMARY | 2023-07-10 16:55 | External Medical Summary | Summary of Care ---
Author Name Unknown Organization [facility] Address [address] [facility] [place] [address] Phone [phone] Care Team Providers Care Manager Merchandise Name Role Phone Shara Ray MD Primary Care Provide r Reason for Visit * Reason Comments Dosage Adjustment Via Phone (anticoag Cl inic) Encounter Details Date Type Department Care Team (Latest Contact Info) Description 05/23/2023 6:00 AM EDT Anticoagulation Pharmacy Call Center [address] [place] [address] [facility] 58 60 [facility] [place] [address] [facility] current use of anticoagulant therapy*; History of [...] 200 Tablet 1 02/05/2023 4 Active Nystatin 008396 UNIT/ML Mouth/Throat SuspensionIndication s:Thrush Swish and swallow [...] Plan: Rate controlled Continue coumadin Atherosclerosis of [place] co ronary artery without angina pectoris 04/03/2023 [...] IM/IV Chest Xray Additional Comments: Followed by waiter/waitress first class - Dr. Rashel Sales [facility] Closed nondisplaced fracture of left tibial tuberosity with routine healing 12/12/2021 Mild protein-calorie malnutrition 12/05/2021 Controlled substance agreement signed 12/05/2021 Hematoma of leg, left, subsequent encounter 09/2021 Overview: [facility] ER ulstrasound shows hematoma calf, INR [...] in the Comments) Remote Patient Monitoring Vendor: [facility] Device(s): Connected Scale Self - [...] & Plan: Chronic AC coumadin Atherosclerosis of gray[place] co ronary artery of grayling heart without angina pectoris documented as of [...] Overview: Per CKD protocol #1 ORBIT-AF Research Other*[id number] 06/02/2010 04/18/2011 Overview: PROJECT: #[id number], SPONSOR: Aileen, PI: Adolfo De Jesus MD [...] can be closed. CONTACT: Roberto Carlos Huertas, Television Repairman Type 2 diabetes mellitus wit h hemoglobin [...] this encounter Progress Notes * Kirby Gates RP - 05/23/2023 2:12 PM EDT Noted, responded to pt's myG and adjusted plan. Updated tracker and note below. * Jayy Harper CPhT - 05/23/2023 10:11 AM EDT Contacts Type Contact Phone/Fax 05/23/2023 10:06 AM EDT Phone (Outgoing) Abdi Bowling (Self) [phone] (M) Spoke to Patient Subjective Patient Findings [...] CPhT 05/23/2023, 10:11 AM * Kirby Gates [facility] - 05/23/2023 8:22 AM EDT Images from [...] As of 05/23/2023 Full warfarin instructions: 05/22: 7.5 mg; Then increase to 3.75 mg every Wed, Fri; 5 mg all other days Next INR check: 05/29/2023 I sent myG Repeat PT/INR in 1 week(s) Weekly dose: increased Additional Dosing Information: Description Elisha Dunn, prefers Wed ([facility], [facility], or [facility]) Please also send myG Tech to contact patient with dose instructions as noted. Kirby Gates RPh 05/23/2023, 8:22 AM documented in this encounter Plan of Treatment Upcoming Encounters Date Type Department Care Team (Late st Contact Info) Description 05/29/2023 7:05 AM EDT Laboratory Lab Mobile Phlebotomy [facility] [address] [place] [address] [facility], Gml Mobile Home Draw [address] [place] [address] 05/29/2023 6:00 PM EDT Anticoagulation Pharmacy Call Center WB [address] [place] [address] [facility], [facility] 58 60 [facility] [place] [address] 06/04/2023 1:30 PM EDT Office Visit Allergy/Immunology [facility] [address] [place] [address] Macario Pathak MD [address] [place] [address] 06/10/2023 12:20 PM EDT Office Visit Family Medicine [address] [phone] Shara Ray MD [address] [place] [address] [place] [address] 06/11/2023 1:30 PM EDT Scheduled Telephone [facility], [facility] [address] [facility] [place] [address] Vee Santacruz RDN [address] [facility] [place] [address] 06/20/2023 5:30 PM EDT Home Visit [facility], [facility] 132 [facility] [place] [address] Valentina Laws RN 132 [facility] [place] [address] 06/21/2023 8:00 AM EDT Laboratory Lab Mobile Phlebotomy [facility] [address] [place] [address] [facility], [facility] Mobile Home Draw [address] [place], [place] [address] 06/21/2023 2:30 PM EDT Office Visit Cardiology, [facility] [place] [address] Hadley Molina MD [address] [place] [address] 06/24/2023 11:00 AM EDT Office Visit Hematology/Oncology [facility] State [place] 200 [facility] [place] [phone] Bouchra Del Cid CRNP 400 [facility] [place] [address] 07/04/2023 2:40 PM EDT Office Visit Nephrology [address] [place] [address] Aliyah Lacey MD 200 [facility] [place] [address] 08/05/2023 1:00 PM EDT Nurse Only Ancillary [address] [place] [address] [place], Nurse [address] [place] [address] 09/20/2023 8:00 AM EDT Laboratory Lab Mobile Phlebotomy [facility] [address] [place] [address] [facility], [facility] Mobile Home Draw [address] [place] [address] 09/24/2023 11:30 AM EDT Office Visit Nephrology, [facility] 200 [facility] [place] [address] Kary Pena PA-C 200 [facility] [place] [address] 12/20/2023 8:00 AM EDT Laboratory Lab Mobile Phlebotomy [facility] [address] [place] [address] [facility], [facility] Mobile Home Draw [address] [place] [address] 03/27/2024 8:00 AM EST Laboratory Lab Mobile Phlebotomy [facility] [address] [place] [address] [facility], [facility] Mobile Home Draw [address] [place] [address] Scheduled Procedures Name Priority Associated Diagnoses Date/Ti [...] Additional history exists CKD PHOS USE SMARTSET 96544 03/21/2024 02/0 02/2023, 12/19/2022, 11/28/2022, Additional history exists Albumin/Creatinine Ratio 05/06/2024 024, 12/03/2022, 02/05/2022, Additional history exists CKD HGB USE SMARTSET 01687 05/06/202405/06, 03/06/2023, 03/06/2023, Additional history exists O2 [...] this encounter Medical Devices Implanted Type Area Case Resolution Specialist Device Identifier Shelf Expiration Date Model / Serial / Lot [place] Suture Biocomposite - Sn/A - [id number] Implanted:Qty: 2 on 12/13/2021 by Moris Jimenez DO at OR [facility] Left: Leg Lower [employer] 07/18/2024 AR-2324BCC / N/A / [id number] Vitoss Bbtrauma Foam Pack - [id number] - [id number] Implanted:Qty: 1 on 12/13/2021 by Moris Jimenez DO at OR [facility] Left: Leg Lower MICHA : TRAUMA 01/15/20224574-5425 / [id number] / [id number] documented as of this encounter Visit Diagnoses [...] Directives occurred with: Patient Care Teams Manager Merchandise Relationship Specialty Start Date End Date Shara Ray MD [address] [place] [address] [place] [phone] PCP - General Family Medicine 03/08/23 documented as of this encounter
--- OUTSIDE RECORDS SUMMARY | 2023-07-10 16:55 | External Medical Summary | Summary of Care ---
Author Name Unknown Organization [facility] Address [address] [facility] [place] [address] Phone [phone] Care Team Providers Care Music Researcher Name Role Phone Shara Ray MD Primary Care Provide r Reason for Visit * Reason Comments Dosage Adjustment Via Phone (anticoag Cl inic) Encounter Details Date Type Department Care Team (Latest Contact Info) Description 05/23/2023 6:00 AM EDT Anticoagulation Pharmacy Call Center [address] [place] [address] [facility] [address] [facility] [place] [address] [facility] current use of anticoagulant therapy*; History of [...] 200 Tablet 1 02/05/2023 4 Active Nystatin 382012 UNIT/ML Mouth/Throat SuspensionIndication s:Thrush Swish and swallow [...] tablets by mouth daily as directed by [facility] 180 Tablet 3 03/06/2023 Active [...] Plan: Rate controlled Continue coumadin Atherosclerosis of hopi co ronary artery without angina pectoris 04/03/2023 [...] IM/IV Chest Xray Additional Comments: Followed by vice president education - Dr. Rashel Sales [facility] Closed nondisplaced fracture of left tibial tuberosity with routine healing 12/12/2021 Mild protein-calorie malnutrition 12/05/2021 Controlled substance agreement signed 12/05/2021 Hematoma of leg, left, subsequent encounter 09/2021 Overview: [facility] ER ulstrasound shows hematoma calf, [...] in the Comments) Remote Patient Monitoring Vendor: [facility] Device(s): Connected Scale [...] & Plan: Chronic AC coumadin Atherosclerosis of hopi co ronary artery of hopi heart without angina pectoris documented as of [...] Overview: Per CKD protocol #1 ORBIT-AF Research Other*[id number] 06/02/2010 04/18/2011 Overview: PROJECT: #[id number], SPONSOR: Aileen, PI: Adolfo De Jesus MD [...] can be closed. CONTACT: Roberto Carlos Huertas, Landfill [employer] Field Technician Type 2 diabetes mellitus wit h [...] AM EDT Phone (Outgoing) Abdi Bowling (Self) [phone] (M) Spoke to Patient Subjective Patient Findings [...] CPhT 05/23/2023, 10:11 AM * Kirby Gates [facility] - 05/23/2023 8:22 AM EDT Images from [...] Dosing Information: Description Elisha Dunn, prefers Wed ([facility], [facility], or [facility]) Please also send myG Tech to contact patient with dose instructions as noted. Kirby Gates RPh 05/23/2023, 8:22 AM documented in this encounter Plan of Treatment Upcoming Encounters Date Type Department Care Team (Late st Contact Info) Description 05/29/2023 7:05 AM EDT Laboratory Lab Mobile Phlebotomy [facility] [address] [place] [address] M[facility], Gml Mobile Home Draw [address] [place] [address] 05/29/2023 6:00 PM EDT Anticoagulation Pharmacy Call Center [address] [place] [address] [facility], [facility] [address] [facility] [place] [address] 06/04/2023 1:30 PM EDT Office Visit Allergy/Immunology [facility] [address] [place] [address] Macario Pathak MD [address] [place] [address] 06/10/2023 12:20 PM EDT Office Visit Family Medicine [address] [phone] Shara Ray MD [address] [place] [address] [place] [address] 06/11/2023 1:30 PM EDT Scheduled Telephone [facility], [facility] 1000 [address] [facility] [place] [address] Vee Santacruz RDN 1000 [address] [facility] [place] [address] 06/20/2023 5:30 PM EDT Home Visit [facility], [facility] 132 [facility] [place] [address] Valentina Laws RN 132 [facility] [place] [address] 06/21/2023 8:00 AM EDT Laboratory Lab Mobile Phlebotomy [facility] [address] [place] [address] [facility] [place], [facility] Mobile Home Draw [address] [place], [place] [address] 06/21/2023 2:30 PM EDT Office Visit Cardiology, [facility] [place] [address] Hadley Molina MD [address] [place] [address] 06/24/2023 11:00 AM EDT Office Visit Hematology/Oncology [facility] State [place] 200 [facility] [place] [phone] Bouchra Del Cid CRNP 400 [facility] [place] [address] 07/04/2023 2:40 PM EDT Office Visit Nephrology [address] [place] [address] Aliyah Lacey MD 200 [facility] [place] [address] 08/05/2023 1:00 PM EDT Nurse Only Ancillary [address] [place] [address] [place], Nurse [address] [place] [address] 09/20/2023 8:00 AM EDT Laboratory Lab Mobile Phlebotomy [facility] [address] [place] [address] [facility] [place], [facility] Mobile Home Draw [address] [place] [address] 09/24/2023 11:30 AM EDT Office Visit Nephrology, [facility] 200 [facility] [place] [address] Kary Pena PA-C 200 [facility] [place] [address] 12/20/2023 8:00 AM EDT Laboratory Lab Mobile Phlebotomy [facility] [address] [place] [address] [facility] [place], [facility] Mobile Home Draw [address] [place] [address] 03/27/2024 8:00 AM EST Laboratory Lab Mobile Phlebotomy [facility] [address] [place] [address] [facility] [place], [facility] Mobile Home Draw [address] [place] [address] Scheduled Procedures Name Priority Associated Diagnoses Date/Ti [...] Additional history exists CKD PHOS USE SMARTSET 38357 03/21/2024 02/0 02/2023, 12/19/2022, 11/28/2022, Additional history exists Albumin/Creatinine Ratio 05/06/2024 024, 12/03/2022, 02/05/2022, Additional history exists CKD HGB USE SMARTSET 11472 05/06/202405/06, 03/06/2023, 03/06/2023, Additional history exists O2 [...] this encounter Medical Devices Implanted Type Area Laborer Steel Handling Device Identifier Shelf Expiration Date Model / Serial / Lot [place] Suture Biocomposite - Sn/A - [id number] Implanted:Qty: 2 on 12/13/2021 by Moris Jimenez DO at OR [facility] Left: Leg Lower [employer] 07/18/2024 AR-2324BCC / N/A / [id number] Vitoss Bbtrauma Foam Pack - [id number] - [id number] Implanted:Qty: 1 on 12/13/2021 by Moris Jimenez DO at OR [facility] Left: Leg Lower MICHA : TRAUMA 01/15/20228490-0855 / [id number] / [id number] documented as of this encounter Visit Diagnoses [...] Advance Directives occurred with: Patient Care Teams Music Researcher Relationship Specialty Start Date End Date Shara Ray MD [address] [place] [address] [place] [phone] PCP - General Family Medicine 03/08/23 documented as of this encounter
--- OUTSIDE RECORDS SUMMARY | 2023-07-10 17:00 | External Medical Summary ---
Author Name Unknown Address Unknown Organization K01:[facility] [address] [place] [address] Laboratory Report Ordering Provider Test Date Status SONIA PANTOJA 05/22/2023 10:32:00 Final Standing order for pt/inr. < br/>Please draw pt/inr every 1 to 4 weeks as requested.
Results to [facility]

Warfarin Therapy
INR: 2.0-3.0 conventional anticoagulation
INR: 2.5-3.5 high intensity anticoagulation Observation Date Value Abnormality Reference (Units ) Status PT 05/22/2023 10:32:00 28.6 Above high normal 11 .6-15.2 (seconds) Final INR 05/22/2023 10:32:00 2.7 Above high normal 0. 8-1.2 Final Performing Location [facility] [address] [place] [address]
--- OUTSIDE RECORDS SUMMARY | 2023-07-10 17:02 | External Medical Summary | Summary of Care ---
Author Name Unknown Organization [facility] Address [address] [facility] [place] [address] Phone [phone] Care Team Providers Care Pole Sander Operator Name Role Phone Shara Ray MD Primary Care Provide r Encounter Details Date Type Department Care Team (Late st Contact Info) Description 05/16/2023 Population Health External Data Unspecified Department Allergies Active Allergy Reactions Criticality Noted Date [...] as of this encounter (statuses as of 05/21/2023) Medications Medication Sig Dispensed Refills Start Date [...] 200 Tablet 1 02/05/2023 4 Active Nystatin 289058 UNIT/ML Mouth/Throat SuspensionIndication s:Thrush Swish and swallow [...] tablets by mouth daily as directed by [facility] 180 Tablet 3 03/06/2023 Active [...] as of this encounter (statuses as of 05/21/2023) Active Problems Problem Noted Date Diagnosed Date Major depressive disorder, recurrent, moderate 0 04/03/2023 Last Assessment & Plan: Mood stable on current dose celexa Other persistent atrial fibrillation 04/03/2023 Last Assessment & Plan: Rate controlled Continue coumadin Atherosclerosis of [place] co ronary artery without angina pectoris 04/03/2023 [...] IM/IV Chest Xray Additional Comments: Followed by breakfast hostess - Dr. Rashel Sales [facility] Closed [...] in the Comments) Remote Patient Monitoring Vendor: [facility] Device(s): Connected Scale [...] & Plan: Symptoms well controlled on omeprazole nursing home current use of anticoagulant therapy 0 05/10/2004 Overview: ICD-10 update of inactive term Rheumatic heart disease 03/05/2002 Old myocardial infarct 01/02/2001 Last Assessment & Plan: Continue Crestor 20 mg daily S/P mitral valve replacement Last Assessment & Plan: Chronic AC coumadin Atherosclerosis of lower [place] co ronary artery of lower [place] heart without angina pectoris documented as of this encounter (statuses as of 05/21/2023) Resolved Problems Problem Noted Date Diagnosed Date [...] Overview: Per CKD protocol #1 ORBIT-AF Research Other*[id number] 06/02/2010 04/18/2011 Overview: PROJECT: #[id number], SPONSOR: Aileen, PI: Adolfo De Jesus MD [...] be closed. CONTACT: Roberto Carlos Huertas, Paint Brush Maker Type 2 diabetes mellitus wit h [...] as of this encounter (statuses as of 05/21/2023) Immunizations Name Administration Dates Next Due COVID-19 mRNA, LNP-s, No Pre serve, 2-Dose Series (Moderna) 04/19/2020,03/22/2020 COVID-19, MRNA-LNP, 23-24, P F, 30 MCG/0.3 mL, 12 YRS AND ABOVE, IM ([facility]++[facility]) 12/03/2022 COVID-19, mRNA, LNP-s, PF, B ooster, [...] PM EDT Scheduled Telephone [facility], [facility] [address] [facility] [place] [address] Vee Santacruz RDN [address] [facility] [place] [address] Canceled (Clinician Appt Cancel Pt Seen Sooner) 05/22/2023 7:00 AM EDT Laboratory Lab Mobile Phlebotomy [facility] [address] [place] [address] Mvmg, Gml Mobile Home Draw [address] [place] [address] 05/23/2023 6:00 AM EDT Anticoagulation Pharmacy Call Center [address] [facility] [place] [address] [facility], [facility] 58 60 [facility] [place] [address] 06/04/2023 1:30 PM EDT Office Visit Allergy/Immunology [facility] [place] [address] [address] [address] Macario Pathak MD [address] [place] [address] [address] 06/10/2023 12:20 PM EDT Office Visit Family Medicine [address] [place] [address] Shara Ray MD [address] [place] [address] [place] [address] 06/11/2023 1:30 PM EDT Scheduled Telephone [facility], [facility] [address] [facility] [place] [address] Noam Vee Tanisha, RDN [address] [facility] [place] [address] 06/20/2023 5:30 PM EDT Home Visit [facility], [facility] 132 [facility] [place] [address] Valentina Laws RN 132 [facility] [place] [address] 06/21/2023 8:00 AM EDT Laboratory Lab Mobile Phlebotomy [facility] [address] [place] [address] [facility] Mobile Home Draw [address] [place] [address] 06/21/2023 2:30 PM EDT Office Visit Cardiology, [facility] 132 [facility] [address] Hadley Molina MD 132 [facility] [place] [address] 06/24/2023 11:00 AM EDT Office Visit Hematology/Oncolog y Gertrude Lacy H[place]man 200 [facility] [place] [phone] Bouchra Del Cid CRNP [address] [place] [address] 07/04/2023 2:40 PM EDT Office Visit Nephrology [address] [place] [address] Aliyah Lacey MD 200 [facility] [place] [address] 08/05/2023 1:00 PM EDT Nurse Only Ancillary [place] [place] [address] [place], Nurse [address] [place] [address] 09/20/2023 8:00 AM EDT Laboratory Lab Mobile Phlebotomy [facility] [address] [place] [address] [facility] Gml Mobile Home Draw [address] [place] [address] 09/24/2023 11:30 AM EDT Office Visit Nephrology, [facility] [address] [place] [address] ZemaitisKary PA-C [address] [place] [address] 12/20/2023 8:00 AM EDT Laboratory Lab Mobile Phlebotomy [facility] [address] [place] [address] [facility] Gml Mobile Home Draw [address] [place] [address] 03/27/2024 8:00 AM EST Laboratory Lab Mobile Phlebotomy [facility] [address] [place] [address] [facility] l Mobile Home Draw [address] [place] [address] Scheduled Procedures Name Priority Associated Diagnoses Date/Ti [...] Additional history exists CKD PHOS USE SMARTSET 18686 03/21/2024 02/0 02/2023, 12/19/2022, 11/28/2022, Additional history exists Albumin/Creatinine Ratio 05/06/2024 024, 12/03/2022, 02/05/2022, Additional history exists CKD HGB USE SMARTSET 11511 05/06/202405/06, 03/06/2023, 03/06/2023, Additional history exists O2 [...] this encounter Medical Devices Implanted Type Area Plant Control Operator Device Identifier Shelf Expiration Date Model / Serial / Lot [place] Suture Biocomposite - Sn/A - [id number] Implanted:Qty: 2 on 12/13/2021 by Moris Jimenez, DO at OR [facility] Left: Leg Lower [employer] 07/18/2024 AR-2324BCC / N/A / [id number] Vitoss Bbtrauma Foam Pack - [id number] - [id number] Implanted:Qty: 1 on 12/13/2021 by Moris Jimenez, DO at OR [facility] Left: Leg Lower MICHA : TRAUMA 01/15/2022 / [id number] / [id number] documented as of this encounter Advance Directives Latest Code Status on File Code Status Date Activated Date Inactivated Comments Full Code 12/12/2021 7:18 PM 12/20/2021 6:08 PM This order reflects the patients wishes and were consensually agreed upon. Question Answer Comments Discussion of Advance Directives occurred with: Patient Care Teams Pole Sander Operator Relationship Specialty Start Date End Date Shara Ray MD [address] [place] [address] [place] [phone] PCP - General Family Medicine 03/08/23 documented as of this encounter
--- OUTSIDE RECORDS SUMMARY | 2023-07-10 17:03 | External Medical Summary | Summary of Care ---
Author Name Unknown Organization [facility] Address [address] [facility] [address] Phone [phone] Care Team Providers Care Administration Specialist Name Role Phone Mercedes Gorman MD Primary Care Provide r Reason for Visit * Reason Comments Medication Refill Encounter Details Date Type Department Care Team (Late st Contact Info) Description 05/14/2023 Refill Family Medicine [address] [address] John Blanco MD [address] [place] [address] [place] [address] Encounter for long-term (current) use of medications*; Dyslipidemia, goal LDL below 100; Hyperlipidemia with target LDL less than 100 Allergies Active Allergy Reactions Criticality Noted Date [...] as of this encounter (statuses as of 05/17/2023) Medications Medication Sig Dispensed Refills Start Date [...] 100 Tablet 1 07/21/2022 07/21/19 24 Active Metoclopramide HCl 10 MG Oral Tablet (Reglan)Indications :Nausea TAKE ONE TABLET BY MOUTH EVERY MORNING 30 MINUTES BEFORE A MEAL 90 Tablet 1 06/04/2022 06/04/19 24 Active rOPINIRole HCl 2 MG Oral [...] Tablet 1 02/05/2023 02/05/20 24 Active Nystatin 730085 UNIT/ML Mouth/Throat SuspensionIndicatio ns:Thrush Swish and swallow [...] the morning. 100 Tablet 1 05/15/2023 Active Rosuvastatin Calcium 20 MG Oral Tablet (Crestor)Indication s:Dyslipidemia, goal LDL below 100,Hyperlipidemia with target LDL less than 100 TAKE ONE TABLET BY MOUTH AT BEDTIME 100 Tablet 0 02/07/2023 03/27/20 24 Discontinu ed(Medicat ion/Dose Changed) documented as of this encounter (statuses as of 05/17/2023) Active Problems Problem Noted Date Diagnosed Date [...] IM/IV Chest Xray Additional Comments: Followed by head sampler - Dr[facility] Rashel Sales [facility] [...] & Plan: Symptoms well controlled on omeprazole intermediate project manager current use of anticoagulant therapy 0 05/10/2004 [...] as of this encounter (statuses as of 05/17/2023) Resolved Problems Problem Noted Date Diagnosed Date [...] Overview: Per CKD protocol #1 [employer] Other*[id number] 06/02/2010 04/18/2011 Overview: PROJECT: #[id number], SPONSOR: Aileen, PI: Adolfo De Jesus MD [...] can be closed. CONTACT: Roberto Carlos Huertas, Ward Attendant Type 2 diabetes mellitus wit h hemoglobin [...] as of this encounter (statuses as of 05/17/2023) Immunizations Name Administration Dates Next Due COVID-19 [...] encounter Miscellaneous Notes * Telephone Encounter - Ciara Barraza LPN - 05/17/2023 9:55 AM EDT Moris calling back, aware of the change. No further questions at this time. * Telephone Encounter - Omayra Rosales CMA - 05/17/2023 9:14 AM EDT I called and left a message for Moris. The prescription was sent to [facility]. * Telephone Encounter - Zena Suarez OSA - 05/16/2023 2:08 PM EDT Moris calling in regarding pt's medication change. Said he needed to speak to provider in regardsto getting in changed for [facility]. * Telephone Encounter - Mercedes Gorman MD - 05/15/2023 1:32 PM EDT Okay with the decreased dose - will get CMP and Lipid panel during clinic visit * Telephone Encounter - Mercedes Gorman MD - 05/15/2023 1:32 PM EDT Signed Prescriptions: Disp Refills Rosuvastatin Calcium 10 MG Oral Tablet (Cr*100 Ta*1 Sig: Take 1 Tablet by mouth in the morning. Authorizing Provider: MERCEDES GORMAN Refused Prescriptions: Disp Refills Rosuvastatin Calcium 20 MG Oral Tablet (Cr*100 Ta*0 Sig: TAKE ONE TABLET BY MOUTH AT BEDTIME Refused By: HANNY PAK Reason f or Refusal: Dose needs clarification * Telephone Encounter - Karena Samano CPhT - 05/15/2023 11:54 AM EDT pharmacy calling to check on status of rosuvastatin. Caller can be reached at [phone]. Thank you, Karena Samano CphT Drug Coordinator III Centralized Clinical Pharmacy Services(CCPS) (formerly Telepharmacy) 05/15/2023,11:54 AM * Telephone Encounter - Hanny Pak [facility] - 05/15/2023 11:08 AM EDT Refused Prescriptions: Disp Refills Rosuvastatin Calcium 20 MG Oral Tablet (Cr*100 Ta*0 Sig: TAKE ONE TABLET BY MOUTH AT BEDTIME Refused By: HANNY PAK Reason for Refusal: Dose needs clarification * Telephone Encounter - Hanny Pak RPh - 05/15/2023 10:30 AM EDT Recommend: Decreease rosuvastatin 20mg to 10 mg due to most recent CrCL. Serum creatinine: 1.7 mg/dL (H) 05/07/23 1255 Estimated creatinine clearance: 23.6 mL/min (A) Per UTD: CrCl <30 mL/minute/1.73 m2: 5 to 10 mg once daily. Lab Results Component Value Date/Time LDL CHOLESTEROL (CALCULATED) - SHAYLA Espinoza 02/13/2023 12:37 PM If agreeable, please route back to me to school adjustment counselor patient on dose decrease Pending Prescriptions: Disp Refills Rosuvastatin Calcium 10 MG Oral Tablet (C*100 Ta*1 Sig: Take 1 Tablet by mouth in the morning. Refused Prescriptions: Disp Refills Rosuvastatin Calcium 20 MG Oral Tablet (Cr*100 Ta*0 Sig: TAKE ONE TABLET BY MOUTH AT BEDTIME Refused By: HANNY PAK Reason for Refusal: Dose needs clarification Thank you, Hanny Pak [facility] Clinical Pharmacist Centralized Clinical Pharmacy Services (CCPS) (formerly Telepharmacy) 05/15/23 11:11 AM [phone] documented in this encounter Plan of Treatment Upcoming Encounters Date Type Department Care Team (Latest Contact Info) Description 05/21/2023 12:30 PM EDT Scheduled Telephone [facility], [facility] [address] [facility] [place] [address] Vee Santacruz RDN [address] [facility] [place] [address] Canceled (Clinician Appt Cancel Pt Seen Sooner) 05/22/2023 7:00 AM EDT Laboratory Lab Mobile Phlebotomy [facility] [address] [place] [address] M[facility], [facility] Mobile Home Draw [address] [place] [address] 05/23/2023 6:00 AM EDT Anticoagulation Pharmacy Call Center 58[address] [facility] [place] [address] Ccps, [facility] 58 60 [facility] [place] [address] 06/04/2023 1:30 PM EDT Office Visit Allergy/Immunology [facility] [address] [facility] [place] [address] Macario Pathak MD [address] [facility] [place] [address] 06/10/2023 12:20 PM EDT Office Visit Family Medicine [address] [phone] Mercedes Gorman MD [address] [place] [address] [place] [address] 06/11/2023 1:30 PM EDT Scheduled Telephone [facility], [facility] [address] [facility] [place] [address] Vee Santacruz, KOSTAN [address] [facility] [place] [address] 06/20/2023 5:30 PM EDT [facility] Visit [facility], [place] [address] [facility] [address] Valentina Laws RN 132 [facility] [place] [address] 06/21/2023 8:00 AM EDT Laboratory Lab Mobile Phlebotomy [facility] [address] [place] [address] [facility], [facility] Mobile Home Draw [address] [place] [address] 06/21/2023 2:30 PM EDT Office Visit Cardiology, [facility] [address] [facility] [place] [address] Hadley Molina MD 132 [facility] [place] [address] 06/24/2023 11:00 AM EDT Office Visit Hematology/Oncolog y [facility] [address] [facility] [phone] Bouchra Del Cid CRNP [address] [place] [address] 07/04/2023 2:40 PM EDT Office Visit Nephrology [address] [place] [address] Aliyah Lacey MD [address] [facility] [place] [address] 08/05/2023 1:00 PM EDT Nurse Only Ancillary [address] [place] [address] [place], Nurse [address] [place] [address] 09/20/2023 8:00 AM EDT Laboratory Lab Mobile Phlebotomy [facility] [address] [place] [address] [facility], [facility] Mobile Home Draw [address] [place] [address] 09/24/2023 11:30 AM EDT Office Visit [place]rology, [place] [address] [place] [address] ZeKary bliss PA-C [address] [facility] [place] [address] 12/20/2023 8:00 AM EDT Laboratory Lab Mobile Phlebotomy [facility] [address] [place] [address] [facility], [facility] Mobile Home Draw [address] [place] [address] 03/27/2024 8:00 AM EST Laboratory Lab Mobile Phlebotomy [facility] [address] [place] [address] [facility], [facility] Mobile Home Draw [address] [place] [address] Scheduled Orders Name Type Priority Associated Diagnoses Orde r Schedule LIPID PANEL WITH DIRECT LDL IF TG IS HIGH Lab Routine Dyslipidemia, goal LDL below 100 Hyperlipidemia with target LDL less than 100 Encounter for long-term (current) use of medications Expected: 05/29/2023 (Approximate), Expires: 08/15/2023 Scheduled Procedures Name Priority Associated Diagnoses Date/Ti [...] Additional history exists CKD PHOS USE SMARTSET 79043 03/21/2024 02/0 02/2023, 12/19/2022, 11/28/2022, Additional history exists Albumin/Creatinine Ratio 05/06/2024 024, 12/03/2022, 02/05/2022, Additional history exists CKD HGB USE SMARTSET 71587 05/06/202405/06, 03/06/2023, 03/06/2023, Additional history exists O2 [...] this encounter Medical Devices Implanted Type Area Mobile Architect Device Identifier Shelf Expiration Date Model / Serial / Lot [place] Suture Biocomposite - Sn/A - [id number] Implanted:Qty: 2 on 12/13/2021 by Moris Jimenez DO at OR [facility] Left: Leg Lower [employer] 07/18/2024 [id number] / N/A / [id number] Vitoss Bbtrauma Foam Pack - [id number] - [id number] Implanted:Qty: 1 on 12/13/2021 by Moris Jimenez DO at OR [facility] Left: Leg Lower MICHA : TRAUMA 01/15/2022 / [id number] / [id number] documented as of this encounter Visit Diagnoses Diagnosis Encounter for long-term (current) use of medications- Primary Encounter for long-term (current) use of other medications Dyslipidemia, goal LDL below 100 Other and unspecified hyperlipidemia Hyperlipidemia with target LDL less than 100 Other and unspecified hyperlipidemia documented in this encounter Advance Directives Latest Code Status on File Code Status Date Activated Date Inactivated Comments Full Code 12/12/2021 7:18 PM 12/20/2021 6:08 PM This order reflects the patients wishes and were consensually agreed upon. Question Answer Comments Discussion of Advance Directives occurred with: Patient Care Teams Administration Specialist Relationship Specialty Start Date End Date Mercedes Gorman MD [address] [place] [address] [place] [phone] PCP - General Family Medicine 03/08/23 documented as of this encounter
--- OUTSIDE RECORDS SUMMARY | 2023-07-10 17:03 | External Medical Summary | Summary of Care ---
Author Name Unknown Organization [facility] Address [address] [facility] [address] Phone [phone] Care Team Providers Care Leather Parts Matcher Name Role Phone Mercedes Gorman MD Primary Care Provide r Reason for Visit * Reason Comments Medication Refill Encounter Details Date Type Department Care Team (Late st Contact Info) Description 05/14/2023 Refill Family Medicine [address] [address] John Blanco MD [address] [place] [address] [place] [address] Encounter for long-term (current) use of [...] Tablet 1 02/05/2023 02/05/20 24 Active Nystatin 294384 UNIT/ML Mouth/Throat SuspensionIndicatio ns:Thrush Swish and swallow [...] Plan: Rate controlled Continue coumadin Atherosclerosis of agdaagux co ronary artery without angina pectoris 04/03/2023 [...] IM/IV Chest Xray Additional Comments: Followed by railroad dining car steward/stewardess - Dr. Rashel Sales [facility] Closed nondisplaced fracture of left [...] Remote Patient Monitoring Vendor: [facility] Device(s): Connected Scale [...] & Plan: Symptoms well controlled on omeprazole emt intermediate current use of anticoagulant therapy 0 05/10/2004 Overview: ICD-10 update of inactive term Rheumatic heart disease 03/05/2002 Old myocardial infarct 01/02/2001 Last Assessment & Plan: Continue Crestor 20 mg daily S/P mitral valve replacement Last Assessment & Plan: Chronic AC coumadin Atherosclerosis of agdaagux co ronary artery of agdaagux heart without angina pectoris documented as of [...] Overview: Per CKD protocol #1 [employer] Other*[id number] 06/02/2010 04/18/2011 Overview: PROJECT: #[id number], SPONSOR: Aileen, PI: Adolfo De Jesus MD [...] can be closed. CONTACT: Roberto Carlos Huertas, General Utility Maintenance Repairer Type 2 diabetes mellitus wit h hemoglobin [...] for Moris. The prescription was sent to [facility]. * Telephone Encounter - Zena Suarez OSA - 05/16/2023 2:08 PM EDT Moris calling in regarding pt's medication change. Said he needed to speak to provider in regardsto getting in changed for [facility]. * Telephone Encounter - Mercedes [...] of rosuvastatin. Caller can be reached at [phone]. Thank you, Karena Samano CphT Dolly Operator III Centralized Clinical Pharmacy Services(CCPS) (formerly Telepharmacy) 05/15/2023,11:54 AM * Telephone Encounter - Hanny Pak [facility] - 05/15/2023 11:08 AM EDT Refused Prescriptions: Disp Refills Rosuvastatin Calcium 20 MG Oral Tablet (Cr*100 Ta*0 Sig: TAKE ONE TABLET BY MOUTH AT BEDTIME Refused By: HANNY PAK Reason for Refusal: Dose needs clarification * Telephone Encounter - Hanny Pak [facility] - 05/15/2023 10:30 AM EDT Recommend: Decreease [...] agreeable, please route back to me to breastfeeding peer counselor patient on dose decrease Pending Prescriptions: Disp Refills Rosuvastatin Calcium 10 MG Oral Tablet (C*100 Ta*1 Sig: Take 1 Tablet by mouth in the morning. Refused Prescriptions: Disp Refills Rosuvastatin Calcium 20 MG Oral Tablet (Cr*100 Ta*0 Sig: TAKE ONE TABLET BY MOUTH AT BEDTIME Refused By: HANNY PAK Reason for Refusal: Dose needs clarification Thank you, Hanny Pak [facility] Clinical Pharmacist Centralized Clinical Pharmacy Services (CCPS) (formerly Telepharmacy) 05/15/23 11:11 AM [phone] documented in this encounter Plan of Treatment Upcoming Encounters Date Type Department Care Team (Latest Contact Info) Description 05/21/2023 12:30 PM EDT Scheduled Telephone [facility], [facility] [address] [facility] [place] [address] Vee Santacruz, RDN [address] [place] [phone] Canceled (Clinician Appt Cancel Pt Seen Sooner) 05/22/2023 7:00 AM EDT Laboratory Lab Mobile Phlebotomy [facility] [address] [facility] [place] [address] Mvmg, Gml Mobile Home Draw [address] [facility] [place] [address] 05/23/2023 6:00 AM EDT Anticoagulation Pharmacy Call Center WB 58[address]60 [facility] [place] [address] Ccps, [facility] 58 60 [facility] [place] [address] 06/04/2023 1:30 PM EDT Office Visit Allergy/Immunology [facility] [address] [facility] [place] [address] Macario Pathak MD [address] [place] [address] 06/10/2023 12:20 PM EDT Office Visit Family Medicine [address] [address] Mercedes Gorman MD [address] [place], [place] [address] [place] [address] 06/11/2023 1:30 PM EDT Scheduled Telephone [facility], [facility] [address] [facility] [place] [address] Vee Santacruz RDN [address] [facility] [place] [address] 06/20/2023 5:30 PM EDT Home Visit [facility], [facility] 132 [facility] [place] [address] Valentina Laws, RN 132 [facility] [place] [address] 06/21/2023 8:00 AM EDT Laboratory Lab Mobile Phlebotomy [facility] [address] [place] [address] [facility], [place], [facility] Mobile Home Draw [address] [place] [address] 06/21/2023 2:30 PM EDT Office Visit Cardiology, [facility] [address] [place] [address] Hadley Molina MD [address] [facility] [place] [address] 06/24/2023 11:00 AM EDT Office Visit Hematology/Oncolog y [facility] [address] [place] [phone] Bouchra Del Cid CRNP [address] [place], [place] [address] 07/04/2023 2:40 PM EDT Office Visit Nephrology [address] [place] [address] Aliyah Lacey MD [address] [place] [address] 08/05/2023 1:00 PM EDT Nurse Only Ancillary [address] [place] [address] [place], Nurse [address] [place] [address] 09/20/2023 8:00 AM EDT Laboratory Lab Mobile Phlebotomy [facility] [address] [place] [address] [facility], [place], [facility] Mobile Home Draw [address] [place] [address] 09/24/2023 11:30 AM EDT Office Visit Nephrology, [facility] [address] [place] [address] Kary Pena PA-C [address] [place] [address] 12/20/2023 8:00 AM EDT Laboratory Lab Mobile Phlebotomy [facility] [address] [place] [address] Gm, [facility]m Mobile Home Draw [address] [place] [address] 03/27/2024 8:00 AM EST Laboratory Lab Mobile Phlebotomy [facility] [address] [place] [address] Gm, [facility] Mobile Home Draw [address] [place], [place] [address] Scheduled Orders Name Type Priority Associated Diagnoses [...] Additional history exists CKD PHOS USE SMARTSET 28258 03/21/2024 02/0 02/2023, 12/19/2022, 11/28/2022, Additional history exists Albumin/Creatinine Ratio 05/06/2024 024, 12/03/2022, 02/05/2022, Additional history exists CKD HGB USE SMARTSET 75081 05/06/202405/06, 03/06/2023, 03/06/2023, Additional history exists O2 [...] this encounter Medical Devices Implanted Type Area Machine Set Up Operator Device Identifier Shelf Expiration Date Model / Serial / Lot [place] Suture Biocomposite - Sn/A - [id number] Implanted:Qty: 2 on 12/13/2021 by Moris Jimenez, DO at OR [facility] Left: Leg Lower [employer] 07/18/2024 [id number] / N/A / [id number] Vitoss Bbtrauma Foam Pack - [id number] - [id number] Implanted:Qty: 1 on 12/13/2021 by Moris Jimenez DO at OR [facility] Left: Leg Lower MICHA : TRAUMA 01/15/2022 / [id number] / [id number] documented as of this encounter Visit Diagnoses [...] Advance Directives occurred with: Patient Care Teams Leather Parts Matcher Relationship Specialty Start Date End Date Mercedes Gorman MD [address] [place] [address] [place] [phone] PCP - General Family Medicine 03/08/23 documented as of this encounter
--- OUTSIDE RECORDS SUMMARY | 2023-07-10 17:03 | External Medical Summary | Summary of Care ---
Author Name Unknown Organization [facility] Address [address] [facility] [address] Phone [phone] Care Team Providers Care Emergency Department Manager Name Role Phone Mercedes Gorman MD Primary Care Provide r Reason for Visit * Reason Comments Medication Refill Encounter Details Date Type Department Care Team (Late st Contact Info) Description 05/14/2023 Refill Family Medicine [address] [address] John Blanco MD [address] [place] [address] [place] [address] Encounter for long-term (current) use of [...] as of this encounter (statuses as of 05/16/2023) Medications Medication Sig Dispensed Refills Start Date [...] Tablet 1 02/05/2023 02/05/20 24 Active Nystatin 897180 UNIT/ML Mouth/Throat SuspensionIndicatio ns:Thrush Swish and swallow [...] tablets by [facility] 180 Tablet 3 03/06/2023 Active Nitroglycerin [...] as of this encounter (statuses as of 05/16/2023) Active Problems Problem Noted Date Diagnosed Date Major depressive disorder, recurrent, moderate 0 04/03/2023 Last Assessment & Plan: Mood stable on current dose celexa Other persistent atrial fibrillation 04/03/2023 Last Assessment & Plan: Rate controlled Continue coumadin 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 Rashel Sales [facility] Closed nondisplaced fracture of left tibial tuberosity with routine healing 12/12/2021 Mild protein-calorie malnutrition 12/05/2021 Controlled substance agreement signed 12/05/2021 Hematoma of leg, left, subsequent encounter 09/2021 Overview: [facility] ER ulstrasound shows hematoma [...] & Plan: Symptoms well controlled on omeprazole oysterman current use of anticoagulant therapy 0 05/10/2004 Overview: ICD-10 update of inactive term Rheumatic heart disease 03/05/2002 Old myocardial infarct 01/02/2001 Last Assessment & Plan: Continue Crestor 20 mg daily S/P mitral valve replacement Last Assessment & Plan: Chronic AC coumadin Atherosclerosis of mechoopda co ronary artery of mechoopda heart without angina pectoris documented as of this encounter (statuses as of 05/16/2023) Resolved Problems Problem Noted Date Diagnosed Date [...] Overview: Per CKD protocol #1 ORBIT-AF Research Other*[id number] 06/02/2010 04/18/2011 Overview: PROJECT: #[id number], SPONSOR: Aileen, PI: Adolfo De Jesus MD [...] can be closed. CONTACT: Roberto Carlos Huertas, Batteryman Type 2 diabetes mellitus wit h hemoglobin [...] as of this encounter (statuses as of 05/16/2023) Immunizations Name Administration Dates Next Due COVID-19 [...] encounter Miscellaneous Notes * Telephone Encounter - Zena Suarez OSA - 05/16/2023 2:08 PM EDT Moris calling in regarding pt's medication change. Said he needed to speak to provider in regardsto getting in changed for [facility]. * Telephone Encounter - Mercedes [...] of rosuvastatin. Caller can be reached at [phone]. Thank you, Karena Samano CphT Bone Plant Supervisor III Centralized Clinical Pharmacy Services(CCPS) (formerly Telepharmacy) 05/15/2023,11:54 AM * Telephone Encounter - Hanny Pak [facility] - 05/15/2023 11:08 AM EDT Refused Prescriptions: Disp Refills Rosuvastatin Calcium 20 MG Oral Tablet (Cr*100 Ta*0 Sig: TAKE ONE TABLET BY MOUTH AT BEDTIME Refused By: HANNY PAK Reason for Refusal: Dose needs clarification * Telephone Encounter - Hanny Pak [facility] - 05/15/2023 10:30 AM EDT Recommend: Decreease [...] agreeable, please route back to me to addictions counselor assistant patient on dose decrease Pending Prescriptions: Disp Refills Rosuvastatin Calcium 10 MG Oral Tablet (C*100 Ta*1 Sig: Take 1 Tablet by mouth in the morning. Refused Prescriptions: Disp Refills Rosuvastatin Calcium 20 MG Oral Tablet (Cr*100 Ta*0 Sig: TAKE ONE TABLET BY MOUTH AT BEDTIME Refused By: HANNY PAK Reason for Refusal: Dose needs clarification Thank you, Hanny Pak [facility] Clinical Pharmacist Centralized Clinical Pharmacy Services (CCPS) (formerly Telepharmacy) 05/15/23 11:11 AM [phone] documented in this encounter Plan of Treatment Upcoming Encounters Date Type Department Care Team (Latest Contact Info) Description 05/21/2023 12:30 PM EDT Scheduled Telephone [facility], [facility] [address] [facility] [place] [address] Vee Santacruz RDN [address] [facility] [place] [address] Canceled (Clinician Appt Cancel Pt Seen Sooner) 05/22/2023 7:00 AM EDT Laboratory Lab Mobile Phlebotomy [facility] [address] [place] [address] [facility], [facility] Draw [address] [address] [address] 05/23/2023 6:00 AM EDT Anticoagulation Pharmacy Call Center WB [address]60 [facility] [place] [address] Ccps, [facility] 58 60 [facility] [place] [address] 06/04/2023 1:30 PM EDT Office [facility] 200 [facility] [place] [address] Macario Pathak MD [address] [place] [address] 06/10/2023 12:20 PM EDT Office Visit Family Medicine [address] [phone] Mercedes Gorman MD [address] [place] [address] [place] [address] 06/11/2023 1:30 PM EDT Scheduled Telephone [facility], [facility] [address] [facility] [place] [address] Vee Santacruz RDN [address] [facility] [address] 06/20/2023 5:30 PM EDT Home Visit [facility], [facility] 132 [place] [address] Valentina Laws, RN 132 [place] [place] [address] 06/21/2023 8:00 AM EDT Laboratory Lab Mobile Phlebotomy [facility] [address] [place] [address] [facility] Mobile Home Draw [address] [place] [address] 06/21/2023 2:30 PM EDT Office Visit Cardiology, [facility] [address] [place] [address] Hadley Molina MD [address] [place] [address] 06/24/2023 11:00 AM EDT Office Visit Hematology/Oncolog y [facility] [address] [place] [address] Bouchra Del Cid CRNP 400 [facility] [place] [address] 07/04/2023 2:40 PM EDT Office Visit Nephrology [address] [place] [address] Aliyah aLcey MD 200 [facility] [place] [address] 08/05/2023 1:00 PM EDT Nurse Only Ancillary [address] [place] [address] [place], Nurse [address] [place] [address] 09/20/2023 8:00 AM EDT Laboratory Lab Mobile Phlebotomy [facility] [address] [place], [place] [address] [facility] [address] [place] [address] 09/24/2023 11:30 AM EDT Office Visit Nephrology, [facility] [address] [place] [address] Kary Pena PA-C 200 [facility] [place] [address] 12/20/2023 8:00 AM EDT Laboratory Lab Mobile Phlebotomy [facility] [address] [place] [address] [facility] [address] [place] [address] 03/27/2024 8:00 AM EST Laboratory Lab Mobile Phlebotomy [facility] [address] [place] [address] [facility] Mobile Home Draw [address] [place] [address] Scheduled Orders Name Type Priority Associated Diagnoses [...] Additional history exists CKD PHOS USE SMARTSET 02223 03/21/2024 02/0 02/2023, 12/19/2022, 11/28/2022, Additional history exists Albumin/Creatinine Ratio 05/06/2024 024, 12/03/2022, 02/05/2022, Additional history exists CKD HGB USE SMARTSET 38812 05/06/202405/06, 03/06/2023, 03/06/2023, Additional history exists O2 [...] this encounter Medical Devices Implanted Type Area Zoology Technical Officer Device Identifier Shelf Expiration Date Model / Serial / Lot [place] Suture Biocomposite - Sn/A - [id number] Implanted:Qty: 2 on 12/13/2021 by Moris Jimenez DO at OR [facility] Left: Leg Lower [employer] 07/18/2024 [id number] / N/A / [id number] Vitoss Bbtrauma Foam Pack - [id number] - [id number] Implanted:Qty: 1 on 12/13/2021 by Moris Jimenez DO at OR [facility] Left: Leg Lower MICHA : TRAUMA 01/15/2022 [id number] / [id number] / [id number] documented as of this encounter Visit Diagnoses [...] Advance Directives occurred with: Patient Care Teams Emergency Department Manager Relationship Specialty Start Date End Date Mercedes Gorman MD [address] [place] [address] [place] [address] PCP - General Family Medicine 03/08/23 documented as of this encounter
--- OUTSIDE RECORDS SUMMARY | 2023-07-10 17:04 | External Medical Summary | Summary of Care ---
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 Rashel Sales [facility] Closed nondisplaced fracture of left tibial tuberosity with routine healing 12/12/2021 Mild protein-calorie malnutrition 12/05/2021 Controlled substance agreement signed 12/05/2021 Hematoma of leg, left, subsequent encounter 09/2021 Overview: [facility] ER ulstrasound shows hematoma calf, INR 4.2, [...] & Plan: Chronic AC coumadin Atherosclerosis of shoshone-bannock co ronary artery of shoshone-bannock heart without angina pectoris documented as of [...] Overview: Per CKD protocol #1 ORBIT-AF Research Other*[id number] 06/02/2010 04/18/2011 Overview: PROJECT: #[id number], SPONSOR: Aileen, PI: Adolfo De Jesus MD [...] can be closed. CONTACT: Roberto Carlos Huertas, Compounding Pharmacy Technician Type 2 diabetes mellitus wit h [...] as of this encounter Progress Notes * Judith Nassar CPhT - 05/16/2023 10:35 AM EDT Contacts Type Contact Phone/Fax 05/16/2023 10:32 AM EDT Phone (Outgoing) Moris Kim (Emergency Contact) [phone] Spoke to Patient - Spoke with patients SO Subjective Patient Findings Negatives: Signs/symptoms of thrombosis, [...] date communicated as noted by Pharmacist: Yes JUDITH NASSAR CPhT 05/16/2023, 10:35 AM * Kirby Gates [facility] - 05/16/2023 8:19 AM EDT Coumadin Clinic (region specific) Objective Current Warfarin Dose As of 05/16/2023 Warfarin maintenance plan: 5 mg (2.5 mg x 2) every Tue, Pascale, Sat; 3.75 mg (2.5 mg x 1.5) all other days INR Result As of 05/16/2023 INR goal: 3.0-3.5 INR used for dosin.7 (05/15/2023) Assessment & Plan Warfarin Plan As of 05/16/2023 Full warfarin instructions: 05/15: 6.25 mg; Then increase to 3.75 mg every Mon, Wed, Fri; 5 mg all other days Next INR check: 05/22/2023 I sent myG Repeat PT/INR in 1 week(s) Weekly dose: increased Additional Dosing Information: Description GMramsey Cantu Wed ([facility], [facility], or [facility]) Please also send myG Tech to contact patient with dose instructions as noted. Kirby Gates RPh 05/16/2023, 8:19 AM documented in this encounter Plan of Treatment Upcoming Encounters Date Type Department Care Team (Latest Contact Info) Description 05/21/2023 12:30 PM EDT Scheduled Telephone [facility], [facility] [address] [facility] [place] [address] Vee Santacruz, RDN [address] [facility] [place] [address] Canceled (Clinician Appt Cancel Pt Seen Sooner) 05/22/2023 7:00 AM EDT Laboratory Lab Mobile Phlebotomy [facility] [address] [address] [facility], [facility] Mobile Home Draw [address] [facility] [place] [address] 05/23/2023 6:00 AM EDT Anticoagulation Pharmacy Call Center WB [address] [place] [address] Ccps, [facility] 58 60 [facility] [place] [address] 06/04/2023 1:30 PM EDT Office Visit Allergy/Immunology [facility] [address] [place], [place] [address] Macario Pathak MD [address] [place] [address] 06/10/2023 12:20 PM EDT Office Visit [address] [place] [address] Shara Ray MD [address] [place] [address] [place] [address] 06/11/2023 1:30 PM EDT Scheduled Telephone [facility], [facility] [address] [facility] [place] [address] Vee Santacruz RDN 1000 [place] [address] 06/20/2023 5:30 PM EDT Home Visit [facility], [facility] 132 [facility] [place] [address] Valentina Laws RN 132 [facility] [place] [address] 06/21/2023 8:00 AM EDT Laboratory Lab Mobile Phlebotomy [facility] [address] [place] [address] [facility], [facility] Mobile Home Draw [address] [place] [address] 06/21/2023 2:30 PM EDT Office Visit Cardiology, [facility] [address] [place] [address] Hadley Molina MD 132 [facility] [place] [address] 06/24/2023 11:00 AM EDT Office Visit Hematology/Oncolog y [employer] 200 [facility] [place] [address] Bouchra Del Cid CRNP 400 [facility] [place] [address] 07/04/2023 2:40 PM EDT Office Visit Nephrology [address] [place] [address] Aliyah Lacey MD 200 [facility] [place] [address] 08/05/2023 1:00 PM EDT Nurse Only Ancillary [address] [place] [address] [place], Nurse [address] [place] [address] 09/20/2023 8:00 AM EDT Laboratory Lab Mobile Phlebotomy [facility] [address] [place] [address] [facility] Mobile Home Draw [address] [place] [address] 09/24/2023 11:30 AM EDT Office Visit Nephrology, [facility] [place] 200 [facility] [place] [address] ZeKary bliss PA-C 200 [facility] [place] [address] 12/20/2023 8:00 AM EDT Laboratory Lab Mobile Phlebotomy [facility] [address] [place] [address] [facility] l Mobile Home Draw [address] [place] [address] 03/27/2024 8:00 AM EST Laboratory Lab Mobile Phlebotomy [facility] [address] [place], [place] [address] [facility], [facility] Mobile Home Draw 100 N [facility] [place] [address] Scheduled Procedures Name Priority Associated Diagnoses Date/Ti [...] Additional history exists CKD PHOS USE SMARTSET 96202 03/21/2024 02/0 02/2023, 12/19/2022, 11/28/2022, Additional history exists Albumin/Creatinine Ratio 05/06/20242 024, 12/03/2022, 02/05/2022, Additional history exists CKD HGB USE SMARTSET 35935 05/06/202405/06, 03/06/2023, 03/06/2023, Additional history exists O2 [...] this encounter Medical Devices Implanted Type Area Offset Plate Preparation Supervisor Device Identifier Shelf Expiration Date Model / Serial / Lot [place] Suture Biocomposite - Sn/A - [id number] Implanted:Qty: 2 on 12/13/2021 by Moris Jimenez DO at OR [facility] Left: Leg Lower [employer] 07/18/2024 AR-2324BCC / N/A / [id number] Vitoss Bbtrauma Foam Pack - [id number] - [id number] Implanted:Qty: 1 on 12/13/2021 by Moris Jimenez DO at OR [facility] Left: Leg Lower MICHA : TRAUMA 01/15/[id number] / [id number] / [id number] documented as of this encounter Visit 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
--- OUTSIDE RECORDS SUMMARY | 2023-07-10 17:04 | External Medical Summary | Summary of Care ---
Author Name Unknown Organization [facility] Address 100 [facility] [address] Phone [phone] Care Team Providers Care Hydroelectric Plant Structural Engineer Name Role Phone Mercedes Gorman MD Primary Care Provide r Reason for Visit * Reason Comments Medication Refill Encounter Details Date Type Department Care Team (Late st Contact Info) Description 05/14/2023 Refill Family Medicine [address] [address] John Blanco MD [address] [place] [address] [place] [address] Encounter for long-term (current) use of [...] Tablet 1 02/05/2023 02/05/20 24 Active Nystatin 447907 UNIT/ML Mouth/Throat SuspensionIndicatio ns:Thrush Swish and swallow [...] [facility] 180 Tablet 3 03/06/2023 Active [...] IM/IV Chest Xray Additional Comments: Followed by tow car driver - Dr. 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 CONTACT: Roberto Carlos Huertas, Superintendent Service Type 2 diabetes mellitus wit h hemoglobin [...] of rosuvastatin. Caller can be reached at [phone]. Thank you, Karena Samano CphT Ends Breakage Clerk III Centralized Clinical Pharmacy Services(CCPS) (formerly Telepharmacy) 05/15/2023,11:54 AM * Telephone Encounter - Hanny Pak RPh - 05/15/2023 11:08 AM EDT Refused Prescriptions: [...] Value Date/Time LDL CHOLESTEROL (CALCULATED) - SHAYLA Alexis 02/13/2023 12:37 PM If agreeable, please route back to me to preparole counseling aide patient on dose decrease Pending Prescriptions: Disp Refills Rosuvastatin Calcium 10 MG Oral Tablet (C*100 Ta*1 Sig: Take 1 Tablet by mouth in the morning. Refused Prescriptions: Disp Refills Rosuvastatin Calcium 20 MG Oral Tablet (Cr*100 Ta*0 Sig: TAKE ONE TABLET BY MOUTH AT BEDTIME Refused By: HANNY PAK Reason for Refusal: Dose needs clarification Thank you, Hanny Pak [facility] Clinical Pharmacist Centralized Clinical Pharmacy Services (CCPS) (formerly Telepharmacy) 05/15/23 11:11 AM [phone] documented in this encounter Plan of Treatment Upcoming Encounters Date Type Department Care Team (Latest Contact Info) Description 05/21/2023 12:30 PM EDT Scheduled Telephone [facility], [facility] [address] [facility] [place] [address] Vee Santacruz RDN 1000 E [facility] [place] [address] Canceled (Clinician Appt Cancel Pt Seen Sooner) 06/04/2023 1:30 PM EDT Office Visit Allergy/Immunology [facility] [place] 200 [facility] [place] [address] Macario Pathak MD 200 [facility] [place] [address] 06/10/2023 12:20 PM EDT Office Visit Family Medicine [address] [place] [address] Mercedes Gorman MD [address] [place] [address] [place] [address] 06/11/2023 1:30 PM EDT Scheduled Telephone [facility], [facility] 1000 [address] [facility] [place] [address] Vee Santacruz RDN [address] [place] [address] 06/20/2023 5:30 PM EDT [facility] Visit [facility], [facility] 132 [facility] [place] [address] Valentina Laws, RN 132 [place] [address] 06/21/2023 8:00 AM EDT Laboratory Lab Mobile Phlebotomy [facility] [address] [place] [address] [facility] Mobile Home Draw [address] [place] [address] 06/21/2023 2:30 PM EDT Office Visit Cardiology, [facility] 132 [facility] [place] [address] Hadley Molina MD 132 [place] [address] 06/24/2023 11:00 AM EDT Office Visit Hematology/Oncolog y [facility] Lacy [place] 200 [facility] [place] [address] Bouchra Del Cid CRNP [address] [place] [address] 07/04/2023 2:40 PM EDT Office Visit Nephrology [address] [place] [address] Aliyah Lacey MD 200 [facility] [place] [address] 08/05/2023 1:00 PM EDT Nurse Only Ancillary Tena Dunbar[address] [place] [address] [place], Nurse [address] [place] [address] 09/20/2023 8:00 AM EDT Laboratory Lab Mobile Phlebotomy [facility] [address] [place] [address] [facility], [facility] Mobile Home Draw [address] [place] [address] 09/24/2023 11:30 AM EDT Office Visit Nephrology, [facility] 200 [facility] [place] [address] ZeKary bliss PA-C [address] [place] [address] 12/20/2023 8:00 AM EDT Laboratory Lab Mobile Phlebotomy [facility] [address] [place] [address] c, G[facility] Mobile Home Draw [address] [place] [address] 03/27/2024 8:00 AM EST Laboratory Lab Mobile Phlebotomy [facility] [address] [place] [address] [facility], [facility] Mobile Home Draw [address] [place] [address] Scheduled Orders Name Type Priority Associated Diagnoses [...] Additional history exists CKD PHOS USE SMARTSET 23994 03/21/2024 02/0 02/2023, 12/19/2022, 11/28/2022, Additional history exists Albumin/Creatinine Ratio 05/06/2024 024, 12/03/2022, 02/05/2022, Additional history exists CKD HGB USE SMARTSET 28551 05/06/202405/06, 03/06/2023, 03/06/2023, Additional history exists O2 [...] this encounter Medical Devices Implanted Type Area Fuel Truck Driver Device Identifier Shelf Expiration Date Model / Serial / Lot [place] Suture Biocomposite - Sn/A - [id number] Implanted:Qty: 2 on 12/13/2021 by Moris Jimenez, DO at OR [facility] Left: Leg Lower [employer] 07/18/2024 AR-2324BCC / N/A / [id number] Vitoss Bbtrauma Foam Pack - [id number] - [id number] Implanted:Qty: 1 on 12/13/2021 by Moris Jimenez, DO at OR [facility] Left: Leg Lower MICHA : TRAUMA 01/15/2022 / [id number] / [id number] documented as of this encounter Visit Diagnoses [...] Advance Directives occurred with: Patient Care Teams Hydroelectric Plant Structural Engineer Relationship Specialty Start Date End Date Mercedes Gorman MD [address] [place] [address] [place] [address] PCP - General Family Medicine 03/08/23 documented as of this encounter
--- OUTSIDE RECORDS SUMMARY | 2023-07-10 17:05 | External Medical Summary ---
Author Name Unknown Address Unknown Organization K01:[facility] [place] [address] [address] Laboratory Report Ordering Provider Test Date Status KITSONIA 05/15/2023 11:07:00 Final Standing order for pt/inr. < br/>Please draw pt/inr every 1 to 4 weeks as requested.
Results to [facility]

Warfarin Therapy
INR: 2.0-3.0 conventional anticoagulation
INR: 2.5-3.5 high intensity anticoagulation Observation Date Value Abnormality Reference (Units ) Status PT 05/15/2023 11:07:00 29.1 Above high normal 11 .6-15.2 (seconds) Final INR 05/15/2023 11:07:00 2.7 Above high normal 0. 8-1.2 Final Performing Location [facility] [place] [address] [address]
--- OUTSIDE RECORDS SUMMARY | 2023-07-10 17:05 | External Medical Summary | Summary of Care ---
Author Name Unknown Organization [facility] Address [address] [address] Phone [phone] Care Team Providers Care Gis Analyst Developer Name Role Phone Mercedes Gorman MD Primary Care Provide r Reason for Visit * Reason Comments Medication Refill Encounter Details Date Type Department Care Team (Late st Contact Info) Description 05/14/2023 Refill Family Medicine [address] [phone] John Blanco MD [address] [place] [address] [place] [address] Encounter for long-term (current) use of [...] as of this encounter (statuses as of 05/15/2023) Medications Medication Sig Dispensed Refills Start Date [...] Tablet 1 02/05/2023 02/05/20 24 Active Nystatin 090258 UNIT/ML Mouth/Throat SuspensionIndicatio ns:Thrush Swish and swallow [...] as of this encounter (statuses as of 05/15/2023) Active Problems Problem Noted Date Diagnosed Date Major depressive disorder, recurrent, moderate 0 04/03/2023 Last Assessment & Plan: Mood stable on current dose celexa Other persistent atrial fibrillation 04/03/2023 Last Assessment & Plan: Rate controlled Continue coumadin Atherosclerosis of [place] co ronary artery without angina pectoris 04/03/2023 [...] IM/IV Chest Xray Additional Comments: Followed by mail clerk - Dr. Rashel Sales [facility] Closed nondisplaced fracture of left [...] in the Comments) Remote Patient Monitoring Vendor: [facility] Device(s): Connected Scale [...] & Plan: Symptoms well controlled on omeprazole exterminator current use of anticoagulant therapy 0 05/10/2004 Overview: ICD-10 update of inactive term Rheumatic heart disease 03/05/2002 Old myocardial infarct 01/02/2001 Last Assessment & Plan: Continue Crestor 20 mg daily S/P mitral valve replacement Last Assessment & Plan: Chronic AC coumadin Atherosclerosis of [place] co ronary artery of [place] heart without angina pectoris documented as of this encounter (statuses as of 05/15/2023) Resolved Problems Problem Noted Date Diagnosed Date [...] Overview: Per CKD protocol #1 ORBIT-AF Research Other*[id number] 06/02/2010 04/18/2011 Overview: PROJECT: #[id number], SPONSOR: Aileen, PI: Adolfo De Jesus MD [...] can be closed. CONTACT: Roberto Carlos Huertas, Waste Reduction Coordinator Type 2 diabetes mellitus wit h hemoglobin [...] as of this encounter (statuses as of 05/15/2023) Immunizations Name Administration Dates Next Due COVID-19 [...] of rosuvastatin. Caller can be reached at [phone]. Thank you, Karena Samano CphT Pony Ride Attendant III [facility]) (formerly Telepharmacy) 05/15/2023,11:54 AM * Telephone Encounter - Hanny Pak RP - 05/15/2023 11:08 AM EDT Refused Prescriptions: Disp Refills Rosuvastatin Calcium 20 MG Oral Tablet (Cr*100 Ta*0 Sig: TAKE ONE TABLET BY MOUTH AT BEDTIME Refused By: HANNY PAK Reason for Refusal: Dose needs clarification * Telephone Encounter - Hanny Pak RP - 05/15/2023 10:30 AM EDT Recommend: Decreease [...] agreeable, please route back to me to certified travel counselor patient on dose decrease Pending Prescriptions: Disp Refills Rosuvastatin Calcium 10 MG Oral Tablet (C*100 Ta*1 Sig: Take 1 Tablet by mouth in the morning. Refused Prescriptions: Disp Refills Rosuvastatin Calcium 20 MG Oral Tablet (Cr*100 Ta*0 Sig: TAKE ONE TABLET BY MOUTH AT BEDTIME Refused By: HANNY PAK Reason for Refusal: Dose needs clarification Thank you, Hanny Pak [facility] Clinical Pharmacist [facility] ([facility]) (formerly Telepharmacy) 05/15/23 11:11 AM [phone] documented in this encounter Plan of Treatment Upcoming Encounters Date Type Department Care Team (Latest Contact Info) Description 05/16/2023 6:00 AM EDT Anticoagulation Pharmacy Call Center [address] [place] [address] [facility], [facility] [address] [place] [address] 05/21/2023 12:30 PM EDT Scheduled Telephone [facility] [address] [place] [facility] [place] [address] Vee Santacruz, KOSTAN [address] [place] [address] Canceled (Clinician Appt Cancel Pt Seen Sooner) 06/04/2023 1:30 PM EDT Office Visit Allergy/Immunology [facility] [address] [place] [address] [address] Macario Pathak MD [address] [place] [address] [address] 06/10/2023 12:20 PM EDT Office Visit [facility] Medicine [address] [phone] Mercedes Gorman MD [address] [place] [address] [place] [address] 06/11/2023 1:30 PM EDT Scheduled Telephone [facility] [address] [facility] [place] [address] Vee Santacruz RDN [address] [facility] [place] [address] 06/20/2023 5:30 PM EDT Home Visit [facility], [facility] [address] [place] [address] Valentina Laws RN 132 [facility] [place] [address] 06/21/2023 8:00 AM EDT Laboratory Lab Mobile Phlebotomy [facility] [address] [place] [address] [facility], [facility] Mobile Home Draw [address] [place] [address] 06/21/2023 2:30 PM EDT Office Visit Cardiology, [facility] [address] [address] Hadley Molina MD [address] [facility] [place] [address] 06/24/2023 11:00 AM EDT Office Visit Hematology/Oncolog y [facility] [address] [place] [address] Bouchra Del Cid CRNP [address] [facility] [place] [address] 07/04/2023 2:40 PM EDT Office Visit Nephrology [address] [place] [address] Aliyah Lacey MD 200 [facility] [place] [address] 08/05/2023 1:00 PM EDT Nurse Only Ancillary [address] [place] [address] [place], Nurse [address] [place] [address] 09/20/2023 8:00 AM EDT Laboratory Lab Mobile Phlebotomy C [address] [place] [address] [facility], [facility] Mobile Home Draw [address] [place] [address] 09/24/2023 11:30 AM EDT Office Visit Nephrology, [facility] 200 [facility] [place] [address] ZemaitisKary PA-C 200 [facility] [place] [address] 12/20/2023 8:00 AM EDT Laboratory Lab Mobile Phlebotomy [facility] [address] [place] [address] Gm, Gml Mobile Home Draw [address] [place] [address] 03/27/2024 8:00 AM EST Laboratory Lab Mobile Phlebotomy [facility] [address] [place] [address] [facility], [facility] Mobile Home Draw [address] [place], [place] [id number] Scheduled Orders Name Type Priority Associated Diagnoses [...] Additional history exists CKD PHOS USE SMARTSET 34184 03/21/2024 02/0 02/2023, 12/19/2022, 11/28/2022, Additional history exists Albumin/Creatinine Ratio 05/06/2024 024, 12/03/2022, 02/05/2022, Additional history exists CKD HGB USE SMARTSET 15266 05/06/202405/06, 03/06/2023, 03/06/2023, Additional history exists O2 ASSESSMENT COMPLETED IN PAST YEAR FOR COPD 05/08/2024 05/09/2023 DTaP,Tdap,and Td Vaccines (3 - Td or [...] this encounter Medical Devices Implanted Type Area Teletype Clerk Device Identifier Shelf Expiration Date Model / Serial / Lot [place] Suture Biocomposite - Sn/A - [id number] Implanted:Qty: 2 on 12/13/2021 by Moris Jimenez, DO at OR [facility] Left: Leg Lower [employer] 07/18/2024 [id number] / N/A / [id number] Vitoss Bbtrauma Foam Pack - [id number] - [id number] Implanted:Qty: 1 on 12/13/2021 by Moris Jimenez DO at OR [facility] Left: Leg Lower MICHA : TRAUMA 01/15/20220005-9809 / [id number] / [id number] documented as of this encounter Visit Diagnoses [...] Advance Directives occurred with: Patient Care Teams Gis Analyst Developer Relationship Specialty Start Date End Date Mercedes Gorman MD [address] [place] [address] [place] [address] PCP - General Family Medicine 03/08/23 documented as of this encounter
--- OUTSIDE RECORDS SUMMARY | 2023-07-10 17:06 | External Medical Summary | Summary of Care ---
Author Name Unknown Organization [facility] Address [address] [facility] [facility] [address] Phone [phone] Care Team Providers Care Fleshing Machine Operator Name Role Phone Shara Gorman MD Primary Care Provide r Reason for Visit * Reason Comments Medication Refill Encounter Details Date Type Department Care Team (Late st Contact Info) Description 04/04/2023 Refill Family Medicine [address] [place] [phone] John Blanco MD [address] [place], [place] [address] [id number] BOBBY (generalized anxiety disorder); Hypothyroidism, postablative Allergies Active Allergy Reactions Criticality [...] as of this encounter (statuses as of 05/09/2023) Medications Medication Sig Dispensed Refills Start Date [...] One daily 100 Capsule 1 2 Active valACYclovir HCl 1 GM Oral Tablet (Valtrex)Indicatio ns:Cold sore Take 2 Tablets by mouth in the morning and 2 Tablets before bedtime. for cold sores. 4 Tablet 11 3 Active Omeprazole 20 MG Oral Capsule Delayed [...] MORNING 100 Tablet 1 3 024 Active Metoclopramide HCl 10 MG Oral Tablet (Reglan)Indication s:Nausea TAKE ONE TABLET BY MOUTH EVERY MORNING 30 MINUTES BEFORE A MEAL 90 Tablet 1 3 024 Active rOPINIRole HCl [...] as needed 50 mL 0 3 Active Spironolactone 25 MG Oral Tablet (Aldactone) TAKE ONE-HALF TABLET BY MOUTH IN THE MORNING 50 Tablet 1 3 024 Active Sucralfate 1 GM/10ML Oral Suspension (Carafate) [...] BEDTIME 200 Tablet 1 3 024 Active Rosuvastatin Calcium 20 MG Oral Tablet (Crestor)Indicatio ns:Dyslipidemia, goal LDL below 100,Hyperlipidemia with target LDL less than 100 TAKE ONE TABLET BY MOUTH AT BEDTIME 100 Tablet 0 3 024 Active Nystatin 632134 UNIT/ML Mouth/Throat SuspensionIndicati ons:Thrush Swish and swallow 5 mL in the morning and 5 mL at noon and 5 mL in the evening and 5 mL before bedtime. For thrush.. 240 mL 1 3 Active Azelastine HCl 0.1 % Nasal Solution (Astelin) ADMINISTER INTO NOSTRIL TWO SPRAYS IN THE MORNING AND TWO SPRAYS BEFORE BEDTIME 30 mL 2 4 025 Active Warfarin Sodium 2.5 MG Oral Tablet [...] Pain, Severe. 60 Tablet 0 4 Active Ipratropium-Albute rol 0.5-2.5 (3) MG/3ML [...] MEDS 100 Tablet 1 4 025 Active Citalopram Hydrobromide 10 MG Oral Tablet (CeleXA)Indication s:BOBBY (generalized anxiety disorder) TAKE ONE TABLET BY MOUTH EVERY MORNING 100 Tablet 1 3 024 Discontinued(Re fill) Levothyroxine Sodium 100 MCG Oral Tablet (Levoxyl)Indicatio ns:Hypothyroidism, postablative TAKE ONE TABLET YB MOUTH DAILY FIRST THING IN THE MORNING AT LEAST 30 MINUTES PRIOR TO BREAKFAST OR OTHER MEDS 100 Tablet 1 3 024 Discontinued(Re fill) Torsemide 100 MG Oral Tablet (Demadex)Indicatio ns:Varicose veins of both legs with edema Take 1 Tablet by mouth in the morning. 100 Tablet 1 3 024 Discontinued(Bernard mendoza preference/disc ontinuation) Morphine Sulfate ER 15 MG Oral Tablet Extended Release (MS Contin)Indications :Generalized osteoarthritis,Hem atoma of left lower leg Take 1 Tablet by mouth daily as needed for Pain, Severe. 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 90 Tablet 3 4 024 Discontinued(Ne dication List Clean Up) documented as of this encounter (statuses as of 05/09/2023) Active Problems Problem Noted Date Diagnosed Date [...] IM/IV Chest Xray Additional Comments: Followed by vision rehabilitation therapist - Dr. 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 CONTACT: Roberto Carlos Huertas, Medical Imaging Technologist Type 2 diabetes mellitus wit h hemoglobin A1c goal of less than 7.0% 04/24/2010 08/29/2018 Overview: ICD-10 update of inactive term ACTIVE CASE MANAGEMENT Kassie Anthony, RN [phone] 05/10/19 10 12/05/2009 ADVANCE DIRECTIVE INFORMATION 05/09/2009 [...] as of this encounter (statuses as of 05/09/2023) Immunizations Name Administration Dates Next Due COVID-19 mRNA, LNP-s, No Pre serve, 2-Dose Series (Moderna) 04/19/2020,03/22/2020 COVID-19, MRNA-LNP, 23-24, P F, 30 MCG/0.3 mL, 12 YRS AND ABOVE, IM (PFIZER-Comirnat) 12/03/2022 COVID-19, mRNA, LNP-s, PF, B ooster, [...] encounter Miscellaneous Notes * Telephone Encounter - Shy Kelley, [facility] - 04/04/2023 4:32 PM ESTSigned Prescriptions: Disp Refills Citalopram Hydrobromide 10 MG Oral Tablet *100 Ta*1 Sig: TAKE ONE TABLET BY MOUTH EVERY MORNINGAuthorizing Provider: Marlene GORMAN User: SHY KELLEY Levothyroxine Sodium 100 MCG Oral Tablet (*100 Ta*1 Sig: TAKE ONE TABLET YB MOUTH DAILY FIRST THING IN THE MORNING AT LEAST 30 MINUTES PRIOR TO BREAKFAST OR OTHER MEDSAuthorizing Provider: Marlene GORMAN User: SHY KELLEY * Telephone Encounter - Jennifer Provider - 04/04/2023 9:15 AM ESTPending Prescriptions: Disp Refills Citalopram Hydrobromide 10 MG Oral Tablet *100 Ta*1 Sig: TAKE ONE TABLET BY MOUTH EVERY MORNING Levothyroxine Sodium 100 MCG Oral Tablet (*100 Ta*1 Sig: TAKE ONE TABLET YB MOUTH DAILY FIRST THING IN THE MORNING AT LEAST 30 MINUTES PRIOR TO BREAKFAST OR OTHER MEDS documented in this encounter Plan of Treatment Upcoming Encounters Date Type Department Care Team (Late st Contact Info) Description 05/14/2023 4:00 PM EDT Home Visit eda at [facility] [address] [address] Valentina Laws, TANISHA [address] [place] [address] 05/15/2023 9:30 AM EDT Laboratory Lab Mobile Phlebotomy [facility] [address] [place] [address] [facility], [facility] Mobile Home Draw [address] [place], [place] [address] 05/16/2023 6:00 AM EDT Anticoagulation Pharmacy Call Center [address] [place] [place] [address] C[facility]ps, [facility] [address] [facility] [place] [address] 05/21/2023 12:30 PM EDT Scheduled Telephone [facility], [facility] [address] [facility] [place] [address] Vee Santacruz, RDN [address] [facility] [place] [address] 06/04/2023 1:30 PM EDT [facility] [address] [place] [address] Macario Pathak MD [address] [place] [address] 06/10/2023 12:20 PM EDT Office Visit Family Medicine [address] [phone] Shara Gorman MD [address] [place] [address] [place] [address] 06/21/2023 8:00 AM EDT Laboratory Lab Mobile Phlebotomy [facility] [address] [place] [address] [facility], [facility] Mobile Home Draw [address] [place] [address] 06/21/2023 2:30 PM EDT Office Visit Cardiology, [facility] [address] [facility] [place] [address] Hadley Molina MD 132 [facility] [place] [address] 06/24/2023 11:00 AM EDT Office Visit Hematology/Oncology [facility] [place] [address] [place] [phone] Bouchra Del Cid CRNP [address] [place] [address] 07/04/2023 2:40 PM EDT Office Visit Nephrology [address] [place] [address] Aliyah Lacey MD 200 [facility] [place] [address] 08/05/2023 1:00 PM EDT Nurse Only Ancillary [address] [place] [address] [place], Nurse [address] [place] [address] 09/20/2023 8:00 AM EDT Laboratory Lab Mobile Ph[place]botomy [facility] [address] [place] [facility] [place] [address] [facility], l Mobile Home Draw [address] [place] [address] 09/24/2023 11:30 AM EDT Office Visit Nephrology, [facility] 200 [facility] [place] [address] Kary Pena PA-C [address] [facility] [address] [place] [address] 12/20/2023 8:00 AM EDT Laboratory Lab [facility] [address] [facility] [place] [address] Gm, [facility] Mobile Home Draw [address] [place] [facility] [place] [address] 03/27/2024 8:00 AM EST Laboratory Lab Mobile Phlebotomy [facility] [address] [place] [address] [facility], [facility] Mobile Home Draw [address] [place] [address] Scheduled Orders Name Type Priority Associated Diagnoses Orde r Schedule TSH WITH FREE T4 IF INDICATED Lab Routine Hypothyroidism, postablative Expected: 06/21/2023, Expires: 04/04/2024 Scheduled Procedures Name Priority Associated Diagnoses Date/Ti [...] Additional history exists CKD PHOS USE SMARTSET 80362 03/21/2024 02/0 02/2023, 12/19/2022, 11/28/2022, Additional history exists Albumin/Creatinine Ratio 05/06/20242 024, 12/03/2022, 02/05/2022, Additional history exists CKD HGB USE SMARTSET 68428 05/06/202405/06, 03/06/2023, 03/06/2023, Additional history exists O2 [...] this encounter Medical Devices Implanted Type Area Tile Grinder Device Identifier Shelf Expiration Date Model / Serial / Lot [place] Suture Biocomposite - Sn/A - [id number] Implanted:Qty: 2 on 12/13/2021 by Moris Jimenez DO at OR [facility] Left: Leg Lower [employer] 07/18/2024 [id number]-[id number] / N/A / [id number] Vitoss Bbtrauma Foam Pack - [id number] - [id number] Implanted:Qty: 1 on 12/13/2021 by Moris Jimenez DO at OR [facility] Left: Leg Lower MICHA : TRAUMA 01/15/2022 / [id number] / [id number] documented as of this encounter Visit Diagnoses Diagnosis BOBBY (generalized anxiety disorder) Generalized anxiety disorder Hypothyroidism, postablative Other postablative hypothyroidism documented in this encounter Advance Directives Latest Code Status on File Code Status Date Activated Date Inactivated Comments Full Code 12/12/2021 7:18 PM 12/20/2021 6:08 PM This order reflects the patients wishes and were consensually agreed upon. Question Answer Comments Discussion of Advance Directives occurred with: Patient Care Teams Fleshing Machine Operator Relationship Specialty Start Date End Date Shara Gorman MD [address] [place] [address] [place] [address] PCP - General Family Medicine 03/08/23 documented as of this encounter
--- OUTSIDE RECORDS SUMMARY | 2023-07-10 17:06 | External Medical Summary | Summary of Care ---
Author Name Unknown Organization [facility] Address [address] [facility] [place] [address] Phone [phone] Care Team Providers Care Graphic Illustrator Name Role Phone Shara Ray MD Primary Care Provide r Reason for Visit * Reason Onset Date Comments Medical Nutrition Therapy 05/14/2023 Encounter Details Date Type Department Care Team (Latest Contact Info) Description 05/14/2023 11:30 AM EDT Scheduled Telephone [facility], [facility] [address] [facility] [place] [address] Vee Santacruz, RASHAUN [address] [facility] [place] [address] Hypertensive heart and kidney disease with chronic diastolic congestive heart failure and stage 3b chronic kidney disease (HCC)* Allergies Active Allergy Reactions Criticality Noted [...] as of this encounter (statuses as of 05/14/2023) Medications Medication Sig Dispensed Refills Start Date [...] IN THE MORNING 50 Tablet 1 12/10/2022 Active Sucralfate 1 GM/10ML Oral Suspension (Carafate) [...] BEDTIME 200 Tablet 1 02/05/2023 4 Active Rosuvastatin Calcium 20 MG Oral Tablet (Crestor)Indications :Dyslipidemia, goal LDL below 100,Hyperlipidemia with target LDL less than 100 TAKE ONE TABLET BY MOUTH AT BEDTIME 100 Tablet 0 02/07/2023 4 Active Nystatin 656010 UNIT/ML Mouth/Throat SuspensionIndication s:Thrush Swish and swallow 5 mL in the morning and 5 mL at noon and 5 mL in the evening and 5 mL before bedtime. For thrush.. 240 mL 1 02/14/2023 Active Azelastine HCl 0.1 % Nasal Solution (Astelin) ADMINISTER INTO NOSTRIL TWO SPRAYS IN THE MORNING AND TWO SPRAYS BEFORE BEDTIME 30 mL 2 03/06/2023 Active Warfarin Sodium 2.5 MG Oral Tablet (Coumadin) Take 1 and 1/2 to 2 tablets by mouth daily as directed by [facility] 180 Tablet 3 03/06/2023 Active Nitroglycerin 0.4 [...] the morning. 45 Tablet 3 05/02/2023 Active documented as of this encounter (statuses as of 05/14/2023) Active Problems Problem Noted Date Diagnosed Date Major depressive disorder, recurrent, moderate 0 04/03/2023 Last Assessment & Plan: Mood stable on current dose celexa Other persistent atrial fibrillation 04/03/2023 Last Assessment & Plan: Rate controlled Continue coumadin Atherosclerosis of [place] co ronary artery without angina pectoris 04/03/2023 [...] IM/IV Chest Xray Additional Comments: Followed by seismology teacher - Dr. 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 0 05/10/2004 Overview: ICD-10 update of inactive term Rheumatic heart disease 03/05/2002 Old myocardial infarct 01/02/2001 Last Assessment & Plan: Continue Crestor 20 mg daily S/P mitral valve replacement Last Assessment & Plan: Chronic AC coumadin Atherosclerosis of [place] co ronary artery of [place] heart without angina pectoris documented as of this encounter (statuses as of 05/14/2023) Resolved Problems Problem Noted Date Diagnosed Date [...] Overview: Per CKD protocol #1 ORBIT-[employer] Research Other*[id number] 06/02/2010 04/18/2011 Overview: PROJECT: #[id number], SPONSOR: Geovanna&Geovanna, PI: Adolfo De Jesus MD [...] can be closed. CONTACT: Roberto Carlos Huertas, Lacing String Cutter Type 2 diabetes mellitus wit h hemoglobin [...] as of this encounter (statuses as of 05/14/2023) Immunizations Name Administration Dates Next Due COVID-19 [...] Telephone Encounter - Vee Santacruz RDN - 05/14/2023 12:28 PM EDT NUTRITION PROGRESS NOTE - [facility] Patient Phone Numbers: [phone] Home [phone] Mobile Call placed to pt as follow-up from initial nutrition assessment 04/23/2023. Reports she has receivednutrition education previously provided. No questions on low sodium, fluid restriction. Has since seen nephrology. Aware to continue to focus on low sodium diet and fluid intake. No need for potassium, phosphorus restriction as this time. See notation from Dr. Sheehan. Patient verbalized understanding. Next nutrition follow up later next month. RIAZ Garcia, RDN, LDN Clinical Dietitian [facility] documented in this encounter Plan of Treatment Upcoming Encounters Date Type Department Care Team (Latest Contact Info) Description 05/14/2023 4:00 PM EDT [facility] Visit [facility], [facility] [address] [facility] [place] [address] Valentina Laws, TANISHA 132 [place] [address] 05/15/2023 9:30 AM EDT Laboratory Lab Mobile Phlebotomy [facility] [address] [place] [address] [facility], [facility] Mobile Home Draw [address] [place] [address] 05/16/2023 6:00 AM EDT Anticoagulation Pharmacy Call Center [address] [place] [address] Ccps, [facility] [address] [place] [address] 05/21/2023 12:30 PM EDT Scheduled Telephone [facility], [facility] [address] [facility] [place] [address] Vee Santacruz, RDN [address] [place] [address] Canceled (Clinician Appt Cancel Pt Seen Sooner) 06/04/2023 1:30 PM EDT Office Visit Allergy/Immunology [facility] [address] [place] [address] Macario Pathak MD [address] [place] [address] 06/10/2023 12:20 PM EDT Office Visit Family Medicine [address] [place] [phone] Shara Ray MD [address] [place] [address] [place] [address] 06/11/2023 1:30 PM EDT Scheduled Telephone [facility], [facility] [address] [facility] [place] [address] Vee Santacruz, RDN [address] [facility] [place] [address] 06/21/2023 8:00 AM EDT Laboratory Lab Mobile Phlebotomy [facility] [address] [place] [address] [facility], [facility] Mobile Home Draw [address] [place] [address] 06/21/2023 2:30 PM EDT Office Visit Cardiology, [facility] 132 [facility] [place] [address] Hadley Molina MD 132 [facility] [place] [address] 06/24/2023 11:00 AM EDT Office Visit Hematology/Oncolog y [facility] 200 [facility] [place] [address] Bouchra Del Cid CRNP [address] [place] [address] 07/04/2023 2:40 PM EDT Office Visit Nephrology [address] [place] [address] Aliyah Lacey MD 200 [facility] [place] [address] 08/05/2023 1:00 PM EDT Nurse Only Ancillary [address] [place] [address] Isabellaalley, Nurse [address] [place] [address] 09/20/2023 8:00 AM EDT Laboratory Lab Mobile Phlebotomy [facility] [address] [place] [address] [facility], [facility] Mobile Home Draw [address] [place] [address] 09/24/2023 11:30 AM EDT Office Visit Nephrology, [place] 200 [facility] [place] [address] Zebenyitis, Kary Abraham PA-C [address] [facility] [place], [place] [address] 12/20/2023 8:00 AM EDT Laboratory Lab Mobile Phlebotomy [facility] [address] [place] [address] [facility], [facility] Mobile Home Draw [address] [place] [address] 03/27/2024 8:00 AM EST Laboratory Lab Mobile Phlebotomy [facility] [address] [place] [address] [facility], [facility] Mobile Home Draw [address] [place] [address] Scheduled Procedures Name Priority Associated Diagnoses Date/Ti [...] Additional history exists CKD PHOS USE SMARTSET 65151 03/21/2024 02/0 02/2023, 12/19/2022, 11/28/2022, Additional history exists Albumin/Creatinine Ratio 05/06/2024 024, 12/03/2022, 02/05/2022, Additional history exists CKD HGB USE SMARTSET 87594 05/06/202405/06, 03/06/2023, 03/06/2023, Additional history exists O2 [...] this encounter Medical Devices Implanted Type Area Scientist Propagator Device Identifier Shelf Expiration Date Model / Serial / Lot [place] Suture Biocomposite - Sn/A - [id number] Implanted:Qty: 2 on 12/13/2021 by Moris Jimenez, DO at OR [facility] Left: Leg Lower [employer] 07/18/2024 [id number] / N/A / [id number] Vitoss Bbtrauma Foam Pack - [id number] - [id number] Implanted:Qty: 1 on 12/13/2021 by Moris Jimenez, at OR [facility] Left: Leg Lower MICHA : TRAUMA 01/15/[id number] / [id number] / [id number] documented as of this encounter Visit Diagnoses Diagnosis Hypertensive heart and kidney disease with chronic diastolic congestive heart failure and stage 3b chronic kidney disease (HCC)- Primary documented in this encounter Advance Directives Latest Code Status on File Code Status Date Activated Date Inactivated Comments Full Code 12/12/2021 7:18 PM 12/20/2021 6:08 PM This order reflects the patients wishes and were consensually agreed upon. Question Answer Comments Discussion of Advance Directives occurred with: Patient Care Teams Graphic Illustrator Relationship Specialty Start Date End Date Shara Ray MD [address] [place] [address] [place] [phone] PCP - General Family Medicine 03/08/23 documented as of this encounter
--- OUTSIDE RECORDS SUMMARY | 2023-07-10 17:07 | External Medical Summary | Summary of Care ---
Author Name Unknown Organization [facility] Address [address] [facility] [place] [address] Phone [phone] Care Team Providers Care Middleware Developer Name Role Phone Shara Ray MD Primary Care Provide r Reason for Visit * Reason Comments Acute Encounter Details Date Type Department Care Team (Late st Contact Info) Description 05/09/2023 11:20 AM EDT Office Visit Family Medicine [address] [place] [phone] Chastity Kim PA-C [address] [place] [address] [place] [address] Status post bilateral knee replacements* Allergies Active Allergy Reactions Criticality Noted Date [...] 100 Tablet 0 02/07/2023 4 Active Nystatin 634954 UNIT/ML Mouth/Throat SuspensionIndication s:Thrush Swish and swallow [...] tablets by mouth daily as directed by [facility] 180 Tablet 3 03/06/2023 [...] Plan: Rate controlled Continue coumadin Atherosclerosis of [place] co ronary artery without angina pectoris 04/03/2023 [...] IM/IV Chest Xray Additional Comments: Followed by clothing pattern preparer - Dr. Rashel Sales [facility] [...] & Plan: Chronic AC coumadin Atherosclerosis of [place] co ronary artery of [place] heart without angina pectoris documented as of [...] Overview: Per CKD protocol #1 ORBIT-AF Research Other*[id number] 06/02/2010 04/18/2011 Overview: PROJECT: #[id number], SPONSOR: Aileen, PI: Adolfo De Jesus MD [...] can be closed. CONTACT: Roberto Carlos Huertas, Instructional Services Specialist Type 2 diabetes mellitus wit h [...] Sign Reading Time Taken Comments Blood Pressure 110/60 05/09/2023 10:54 AM EDT Pulse 73 05/09/2023 10:54 AM EDT Temperature 36.9 C (98.5 F) 05/09/2023 1 0:54 AM EDT Respiratory Rate - - Oxygen Saturation 99% 05/09/2023 10: 54 AM EDT Inhaled Oxygen Concentration - - Weight 65.2 kg (143 lb 11.2 oz) 024 10:54 AM EDT Height - - Body Mass Index 32.22 03/19/2023 1:02 PM EST documented in this [...] as of this encounter Progress Notes * Chastity Kim PA-C - 05/09/2023 10:54 AM EDT Nursing Notes: Abel Atkinson LPN 05/09/23 1057 Signed Chief Complaint Patient presents with Acute The patient has been properly identified by confirmation of name and date of . Pt here today with ongoing left leg/knee pain. Pt states that Dr. Lacey wants her off the morphine due to her kidney function declining. Pt does go to pain therapy but they said they don't prescribe meds, they just monitor the meds that she is on. Pt is current taking tramadol 50 mg 4 times daily and morphine 15 daily. She was told that she needed to come and see me so I can recommend what other type of pain med she can take? Review of patient's allergies indicates: Allergen Reactions [...] by mouth daily as needed for Constipation. D3-1000 25 MCG (1000 UT) Oral Capsule [...] BY MOUTH EVERY MORNING 100 Tablet 1 Metoclopramide HCl 10 MG Oral Tablet (Reglan) TAKE ONE TABLET BY MOUTH EVERY MORNING 30 MINUTES BEFORE A MEAL 90 Tablet 1 rOPINIRole HCl 2 MG Oral [...] MORNING AND BEFORE BEDTIME 200 Tablet 1 Rosuvastatin Calcium 20 MG Oral Tablet (Crestor) TAKE ONE TABLET BY MOUTH AT BEDTIME 100 Tablet 0 Nystatin 732129 UNIT/ML Mouth/Throat Suspension Swish and swallow 5 mL in the morning and 5 mL at noon and 5 mL in the evening and 5 mL before bedtime. For thrush.. 240 mL 1 Azelastine HCl 0.1 % Nasal Solution (Astelin) ADMINISTER INTO NOSTRIL TWO SPRAYS IN THE MORNING ANDTWO SPRAYS BEFORE BEDTIME 30 mL 2 Warfarin Sodium 2.5 MG Oral Tablet (Coumadin) Take 1 and 1/2 to 2 tablets by mouth daily as directed by [facility] 180 Tablet 3 Nitroglycerin 0.4 MG Sublingual Tablet Sublingual (Nitrostat) PLACE 1 TABLET UNDER THE TONGUE EVERY5 MINUTES UP TO 3 DOSES NEEDED FOR CHEST PAIN. IF NO RELIEF CALL 911 OR GO TO ER 75 Tablet 0 traMADol HCl 50 MG Oral Tablet (Ultram) Take 1 Tablet by mouth 2 times a day as needed for Pain, Severe. 60 Tablet 0 Ipratropium-Albuterol 0.5-2.5 (3) MG/3ML Inhalation Solution (Duoneb) Inhale 3 mL by mouth every 6 hours as needed. Combivent Respimat 20-100 MCG/ACT Inhalation Aerosol Solution [...] prior to torsemide in the morning on Tablet 5 Torsemide 100 MG Oral Tablet (Demadex) Take 0.5 Tablets by mouth in the morning. 45 Tablet 3 Benzonatate 100 MG Oral Capsule (Tessalon Perles) Take by mouth 1 Capsule as needed in the morning AND 1 Capsule as needed at noon AND 1 Capsule as needed in the evening for Cough. (Patient not taking: Reported on 05/09/2023) 30 Capsule 1 No current facility-administered medications for this visit. Past Medical History: Diagnosis Date Acute on chronic diastolic CHF (congestive heart failure) (HCC) 07/18/2021 [facility] Anticoagulation management encounter 08/06/2001 INR 3-3.5 Anxiety attack 06/23/2021 Evaluated [facility] ER Atrial fibrillation (HCC) Bronchitis 02/18/2022 got sick on 9 days En cruise Coronary atherosclerosis of lumbee coronary artery Cough variant asthma 01/16/2021 COVID-19 10/14/2020 Cystitis 12/12/2021 [place] Klebsiella and E coli Diverticulosis of colon (without mention of hemorrhage) 07/16/2013 sigmoid & descending colon DM type 2, goal A1c below 7 diet controlled Dyslipidemia, goal LDL below 70 09/24/2013 Encounter for hepatitis C screening test for low risk patient 03/28/2021 negative Esophageal reflux 12/03/2008 min gastric inflammation and mod active chronic esophageal inflammation-repeat EGD in 2 yrs Facial paresthesia 05/21/2018 [facility] possibly stress Fracture of left tibial tuberosity 12/07/2021 [place] knee replaced GENERAL OSTEOARTHROSIS 01/31/2010 Generalized anxiety disorder 06/26/2021 citalopram started Hemarthrosis involving knee joint Hematoma of left lower leg 11/25/2021 [facility] ER ulstrasound shows hematoma calf, INR 4.2, hgb 9.9 Hyperlipidemia LDL goal < 100 12/23/2013 Hypertensive heart and kidney disease with chronic diastolic congestive heart failure and stage 3b chronic kidney disease (HCC) 04/26/2021 Hypothyroidism, postablative 09/24/2013 Intramuscular hematoma 08/02/2021 left leg, [facility] Kidney disease, chronic, stage III (GFR 30-59 ml/min) ([facility]) 07/09/2011 Per CKD protocol #1 LONG-TERM USE OF ANTICOAGULANTS 05/10/2004 MEDICATION USE AGREEMENT 08/29/2017 Migraine with aura, intractable Old myocardial infarct 01/02/2001 Other abnormal glucose 03/13/2005 Postural dizziness with presyncope 12/05/2017 [facility] also burned her arm. GFR 17 Protein calorie malnutrition ([facility]) Restless legs syndrome 12/06/2016 RHEUMATIC HEART DISEASE 03/05/2002 Right knee DJD S/P mitral valve replacement 1993 mechanical Shingles 02/13/2014 left thigh Syncope 01/13/2021 [facility] VICKY and dehydration Tachy-sammi syndrome ([facility]) 02/14/2018 Tendonitis, Achilles, left 02/18/2022 walked a lot on a cruise TIA (transient ischemic attack) 12/23/2013 [facility] Social History Socioeconomic History Marital status: Single [...] on file Food Insecurity: No Food Insecurity (04/03/2023) Hunger Vital Sign Worried About Running Out of Food in the Last Year: Never true Ran Out of Food in the Last Year: Never true Transportation Needs: Not on file Physical Activity: Not on file Stress: Not on file Social Connections: Not on file Intimate Partner Violence: Not on file Housing Stability: Not on file O:Blood pressure 110/60, pulse 73, temperature 36.9 C (98.5 F), temperature source Tympanic, weight 65.2 kg (143 lb 11.2 oz), SpO2 99%. GENERAL: alert, healthy, and no distress A:Status post bilateral knee replacements (Primary) Will have to message Dr. Lacey about what med she thinks would be kidney friendly. Pt has appt to est with PCP in a month. Any questions/problems, please call. If anything changes, worsens, develops new sx, please call [facility]. Follow Up: Return if symptoms worsen or fail to improve. Chastity Kim PA-C documented in this encounter Nursing Notes * Abel Atkinson LPN - 05/09/2023 10:54 AM EDT Chief Complaint Patient presents with Acute Fell In Nov 2021 and no one found fx in tibia until 3 wks later and then she needed surgery She states she has had issues and pain since ,but now that kidney are getting worse they do not want her taking Morphone. She was taking Tramadol 4 x a day and Morphone 2 x a day Has pain Left Left form Hip down to foot chronic daily Does see pain management at [facility] and they will manage refills ,but she states theywill not prescribe med's The patient has been properly identified by confirmation of name and date of . documented in this encounter Plan of Treatment Upcoming Encounters Date Type Department Care Team (Late st Contact Info) Description 05/14/2023 4:00 PM EDT Home Visit [facility] [address] [place] [address] Valentina Laws, TANISHA 132 [place] [address] 05/15/2023 9:30 AM EDT Laboratory Lab Mobile Phlebotomy [facility] [address] [place] [address] [facility], [facility] Mobile Home Draw [address] [place] [address] 05/16/2023 6:00 AM EDT Anticoagulation Pharmacy Call Center [address] [place] [address] Ccps, [facility] [address] [place] [address] 05/21/2023 12:30 PM EDT Scheduled Telephone [facility], [facility] [address] [facility] [place] [address] Idania Santacruzarelisa Garay, RDN [address] [facility] [place] [address] 06/04/2023 1:30 PM EDT Office Visit Allergy[facility]Immunology [facility] [address] [place] [address] Macario Pathak MD 200 [facility] [place] [address] 06/10/2023 12:20 PM EDT Office Visit Family Medicine [address] [phone] Shara Ray MD [address] [place] [address] [place] [address] 06/21/2023 8:00 AM EDT Laboratory Lab Mobile Phlebotomy [facility] [address] [place] [address] [facility], [facility] Mobile Home Draw [address] [place] [address] 06/21/2023 2:30 PM EDT Office Visit [facility] 132 [facility] [place] [address] Hadley Molina MD 132 [facility] [place] [address] 06/24/2023 11:00 AM EDT Office Visit Hematology/Oncology Gertrude Lacy [place] [address] [place] [phone] Bouchra Del Cid CRNP [address] [place] [address] 07/04/2023 2:40 PM EDT Office Visit Nephrology [address] [place] [address] LaceyAliyah castillo MD 200 [facility] [place] [address] 08/05/2023 1:00 PM EDT Nurse Only Ancillary [address] [place] [address] [place], Nurse [address] [place] [address] 09/20/2023 8:00 AM EDT Laboratory Lab Mobile Phlebotomy [facility] [address] [place] [address] [facility] Mobile Home Draw [address] [facility] [place] [address] 09/24/2023 11:30 AM EDT Office Visit Nephrology, [facility] 200 [facility] [place] [address] Kary Pena PA-C 200 [facility] [place] [address] 12/20/2023 8:00 AM EDT Laboratory Lab Mobile Phlebotomy [facility] [address] [facility] [place] [address] [facility] Draw [address] [facility] [place] [address] 03/27/2024 8:00 AM EST Laboratory Lab Mobile Phlebotomy [facility] [address] [facility] [place] [address] [facility], [facility] Mobile Home Draw [address] [place] [address] Scheduled Procedures Name Priority Associated Diagnoses Date/Ti [...] Additional history exists CKD PHOS USE SMARTSET 31864 03/21/2024 02/0 02/2023, 12/19/2022, 11/28/2022, Additional history exists Albumin/Creatinine Ratio 05/06/20242 024, 12/03/2022, 02/05/2022, Additional history exists CKD HGB USE SMARTSET 89983 05/06/202405/06, 03/06/2023, 03/06/2023, Additional history exists O2 [...] this encounter Medical Devices Implanted Type Area Musical Engineer Device Identifier Shelf Expiration Date Model / Serial / Lot [place] Suture Biocomposite - Sn/A - [id number] Implanted:Qty: 2 on 12/13/2021 by Moris Jimenez DO at OR [facility] Left: Leg Lower [employer] 07/18/2024 [id number] / N/A / [id number] Vitoss Bbtrauma Foam Pack - [id number] - [id number] Implanted:Qty: 1 on 12/13/2021 by Moris Jimenez DO at OR [facility] Left: Leg Lower MICHA : TRAUMA 01/15/2022 [id number] / [id number] / [id number] documented as of this encounter Visit Diagnoses Diagnosis Status post bilateral knee replacements- Primary Knee joint replacement by other means documented in this encounter Advance Directives Latest Code Status on File Code Status Date Activated Date Inactivated Comments Full Code 12/12/2021 7:18 PM 12/20/2021 6:08 PM This order reflects the patients wishes and were consensually agreed upon. Question Answer Comments Discussion of Advance Directives occurred with: Patient Care Teams Middleware Developer Relationship Specialty Start Date End Date Shara Ray MD [address] [place] [address] [place] [address] PCP - General Family Medicine 03/08/23 documented as of this encounter
--- OUTSIDE RECORDS SUMMARY | 2023-07-10 17:07 | External Medical Summary | Summary of Care ---
Author Name Unknown Organization [facility] Address [address] [facility] [place] [address] Phone [phone] Care Team Providers Care Mountain Services Manager Name Role Phone Shara Ray MD Primary Care Provide r Reason for Visit * Reason Comments Follow Up Follow up for stage 3 Kidney disease Encounter Details Date Type Department Care Team (Latest Contact Info) Description 05/07/2023 1:40 PM EDT Office Visit Nephrology [address] [place] [address] Aliyah Lacey MD [address] [place] [address] [place] [address] Stage 3b chronic kidney disease (HCC)*; Iron deficiency anemia, unspecified iron deficiency anemia type; Abnormal radiologic findings on diagnostic imaging of renal pelvis, ureter, or bladder; Chronic hyponatremia; Chronic right-sided heart failure (HCC); Albuminuria; Other chronic postprocedural pain; Hypertension goal BP (blood pressure) < 130/80; Hyperparathyroidism, secondary renal (HCC) Allergies Active Allergy Reactions Criticality Noted [...] for Cough. 30 Capsule 1 2 Active Additional Information Patient not taking.Reported on [...] 100 Tablet 1 3 07/21/19 24 Active Metoclopramide HCl 10 MG Oral Tablet (Reglan)Indications :Nausea TAKE ONE TABLET BY MOUTH EVERY MORNING 30 MINUTES BEFORE A MEAL 90 Tablet 1 3 06/04/19 24 Active rOPINIRole HCl 2 MG [...] IN THE MORNING 50 Tablet 1 3 12/10/19 24 Active Sucralfate 1 GM/10ML Oral [...] 200 Tablet 1 3 02/05/20 24 Active Rosuvastatin Calcium 20 MG Oral Tablet (Crestor)Indication s:Dyslipidemia, goal LDL below 100,Hyperlipidemia with target LDL less than 100 TAKE ONE TABLET BY MOUTH AT BEDTIME 100 Tablet 0 3 02/07/20 24 Active Nystatin 156475 UNIT/ML Mouth/Throat SuspensionIndicatio ns:Thrush Swish and swallow 5 mL in the morning and 5 mL at noon and 5 mL in the evening and 5 mL before bedtime. For thrush.. 240 mL 1 3 Active Azelastine HCl 0.1 % Nasal Solution (Astelin) ADMINISTER INTO NOSTRIL TWO SPRAYS IN THE MORNING AND TWO SPRAYS BEFORE BEDTIME 30 mL 2 4 03/05/19 25 Active Warfarin Sodium 2.5 MG Oral Tablet (Coumadin) Take 1 and 1/2 to 2 tablets by mouth daily as directed by [facility] 180 Tablet 3 4 Active Nitroglycerin [...] Pain, Severe. 60 Tablet 0 4 Active Ipratropium-Albuter ol 0.5-2.5 (3) MG/3ML [...] 100 Tablet 1 4 04/03/19 25 Active metOLazone 5 MG Oral Tablet (Zaroxolyn) Take one 1/2 hour prior to torsemide in the morning on days directed 12 Tablet 5 4 Active Torsemide 100 MG Oral Tablet (Demadex)Indication s:Acute on chronic right-sided heart failure (HCC),S/P mitral valve replacement,Permane nt atrial fibrillation (HCC) Take 0.5 Tablets by mouth in the morning. 45 Tablet 3 4 Active Morphine Sulfate ER 15 MG Oral Tablet Extended Release (MS Contin)Indications: Generalized osteoarthritis,Khoa eufemia of left lower leg Take 1 Tablet by mouth daily as needed for Pain, Severe. Only as needed for pain 30 Tablet 0 4 05/07/19 24 Discontinued documented as of this encounter (statuses as of 05/09/2023) Active Problems Problem Noted Date Diagnosed Date Major depressive disorder, recurrent, moderate 0 04/03/2023 Last Assessment & Plan: Mood stable on current dose celexa Other persistent atrial fibrillation 04/03/2023 Last Assessment & Plan: Rate controlled Continue coumadin Atherosclerosis of [place] ronary artery without angina pectoris 04/03/2023 [...] IM/IV Chest Xray Additional Comments: Followed by clinical data associate - Dr. 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 CONTACT: Roberto Carlos Huertas, Carbonation Equipment Tender Type 2 diabetes mellitus wit h hemoglobin [...] Sign Reading Time Taken Comments Blood Pressure 121/64 05/07/2023 1:23 PM EDT Pulse 77 05/07/2023 1:23 PM EDT Temperature 37.2 C (99 F) 05/07/2023 1:23 PM EDT Respiratory Rate 20 05/07/2023 1:23 PM EDT Oxygen Saturation 93% 05/07/2023 1:23 PM EDT Inhaled Oxygen Concentration - - Weight 64 kg (141 lb) 05/07/2023 1:23 PM EDT Height - - Body Mass Index 31.61 03/19/2023 1:02 PM EST documented in this [...] this encounter Patient Instructions * Patient Instructions* Aliyah Lacey MD - 05/07/2023 2:28 PM EDT -continue 2L fluid limit and <2 gm daily sodium diet -no medication change for now but will look to see if we can lower torsemide -be mindful/moderate about potassium/phosphorus but you do not need to be strict about these -avoid medicines like aleve, advil, ibuprofen, aspirin more than 81 mg daily and other NSAIDS whichare not good for kidney patients. Take only tylenol (acetaminophen) up to 2000 mg daily as needed for pain or as directed by your primary care provider. >talk to Dr Ray's team about pain control -for now your "target" weight is 138-140 lb -will have CKD Brusher Machine follow you as well documented in this encounter Progress Notes * Aliyah Lacey MD - 05/07/2023 1:47 PM EDT NEPHROLOGY CLINIC NOTE Nephrology [address] [place] [address] 05/07/2023, 1:47 PM Patient Name: Abdi Bowling BACKGROUND: 67 year old female presents for close in follow-up of acute kidney injury on CKD 3B Past medical history includes rheumatic heart disease, status post mitral valve replacement 1993; chronic AFib with tachy-sammi syndrome, heart failure with preserved ejection fraction, past embolic myocardial infarction and TIA, COPD, type 2 diabetes, CKD 3B. Home blood pressure checks: N but does standing weights History of stones: N Family history of CKD or ESRD: M w/ CKD 3B > at age 88 had Covid and ESRD managed conservatively NSAID use: N Herbals/supplements: N Last hospital stay: 12/2021 for leg surgery; early February 2022 for bleeding related to supratherapeutic INR related to cruise/virus At feb 2023 visit to [facility] care told me not doing too well; had gained lots of mid abd/epigastric weight; also w/ ongoing L leg pain (hx of several ortho procedures this leg). Follows w/ pain clinic. Follows w/ [facility] and does daily weights through them remotely (not available to me at time of OV). Clinic weight review shows > Feb 2022 weighed 110 lb; in September 2022 weighed 130; since late November 2022 - February 2023 in 140s consistently. Changed to torsemide in December away from lasix by cardiology; b/c lasix wasn't working as well. Currently getting iron by vein periodically from hematology for Fe def anemia; negative [id number] for 10 year f/u. Acc by Moris her cousin and caregiver. Does mobile labs weekly d/t A fib/ MV. TODAY 05/07/2023: since establishing care with me late February 2023, the patient's had an episode ofstage II VICKY with creatinine going from baseline 1.6- 1.7 to peak at 3.7 on April 23. Up trend began mid March. Also some issues with mild hyponatremia same timeframe with diana sodium 129. She does daily standing weights with Wan Shidao managementer at home sent by [employer]. See 04/26/23 [facility] encounter for trends in weights over the past year. With VICKY, in early April, cardiology stopped losartan and on March held torsemide 100 mg daily dose and metolazone (had only had 1 dose ever of metolazone). She was also started on a 2 L daily fluid limit. Torsemide was recently resumed at 50 mg daily on May 01. More recently over the past 7-10 days her weights have been running 144-140 with down trend to 140.Yesterday a.m. she was 140.2. Today 139.4 lb. Tells me she feels her best 138-140 lb. 3.6 L UOP and 1.9L intake daily. Limiting Na to <2 gm daily; stopped K rich salt substitute. Next [facility] visit 05/13; available by phone REVIEW OF SYSTEMS: No F/C, intended wt loss as above, energy level and appetite acceptable No acute visual changes or REYES No sinus, dental, throat pain No neck lumps/bumps or stiffness No palpitations, angina, orthopnea, L>>R LE edema No cough, wheeze, or dyspnea >> really good since back on torse; before that w/ wt approaching 144-145 lb would have to take inhaler getting to car No N/V/D/C/abd pain No dysuria, hematuria, nocturia >2X; no new or worrisome voiding symptoms; intermittently strongsmelling No rash or generalized itch No focal joint/muscle aches but chronic L leg pain is much worse today No inappropriate bleeding or bruising No tremor, seizures, focal or global weakness or paresthesias denies orthostatic or presyncopal symptoms; no falls since 11/18/21 when she had L leg fracture which had delayed dx and then surgery Current Outpatient Medications Medication Sig Dispense Refill [...] MOUTH AT BEDTIME 100 Tablet 0 Nystatin [id number] UNIT/ML Mouth/Throat Suspension Swish and swallow 5 [...] [facility] 180 Tablet 3 traMADol HCl 50 [...] taking: Reported on 05/09/2023) 30 Capsule 1 Nitroglycerin 0.4 MG Sublingual Tablet Sublingual (Nitrostat) PLACE 1 TABLET UNDER THE TONGUE EVERY5 MINUTES UP TO 3 DOSES NEEDED FOR CHEST PAIN. IF NO RELIEF CALL 911 OR GO TO ER 75 Tablet 0 metOLazone 5 MG Oral Tablet (Zaroxolyn) Take one 1/2 hour prior to torsemide in the morning on Tablet 5 No current facility-administered medications for this visit. Review of patient's allergies indicates: Allergen Reactions Budesonide Other (Please comment) trouble breathing Hydroxyzine Other reaction(s): DYSTONIA Metformin Other reaction(s): DIARRHEA Parsley Seed Other reaction(s): AGITATION Vincent Inhibitors cough Gabapentin Neuro complications (Please comment) confusion Lovenox [Enoxaparin] Oxycodone " numb all over" Phenothiazines Unknown Prochlorperazine Neuro complications (Please comment) dystonia Tetracycline Nausea/vomiting PHYSICAL EXAMINATION: BP Readings from Last 6 Encounters: 05/09/23 110/60 05/07/23 121/64 04/24/23 116/52 04/08/23 120/62 04/03/23 106/52 03/19/23 130/71 Wt Readings from Last 6 Encounters: 05/09/23 65.2 kg (143 lb 11.2 oz) 05/07/23 64 kg (141 lb) 04/24/23 64.5 kg (142 lb 3.2 oz) 04/08/23 68 kg (150 lb) 03/19/23 67.3 kg (148 lb 6.4 oz) 02/27/23 66 kg (145 lb 6.4 oz) Pulse Readings from Last 6 Encounters: 05/09/23 73 05/07/23 77 04/24/23 72 04/08/23 68 04/03/23 74 03/19/23 76 NAD, oriented x 3, ambulatory w/ walker; smaller stature Normocephalic, atraumatic, eomi nonicteric sclerae MMM Supple neck Irregularly irregular w/ valve click w/o g/r; at most trace edema Crackles 1/[address] BL, some upper respiratory shounds NT abd, +BS, soft No cyanosis or clubbing No rash No tremor, focal or global weakness; fluent speech, fair historian/relies on cousin some LABS: Recent Labs Units 05/07/23 1255 04/29/23 1003 04/24/23 1127 04/17/23 1145 SODIUM - [facility] mmol/L 134* 132* 134* 129* POTASSIUM - [facility] mmol/L 3.9 3.8 3.9 3.7 CHLORIDE - [facility] mmol/L 95* 98 97* 86* CO2 - [facility] mmol/L 27 22 23 26 BUN - [facility] mg/dL 27* 36* 81* 112* CREATININE - [facility] mg/dL 1.7* 1.8* 3.7* 3.0* ESTIMATED GLOMERULAR FILTRATION RATE - [facility] mL/min 32* 30* 13* 17* Latest Ref Rng 03/19/2022 03/28/2022 05/30/2022 08/22/2022 09/18/2022 10/24/2022 11/28/2022 NEPH-FLOW Bun 6 - 20 mg/dL 16 21 (H) 26 (H) Cr 0.5 - 1.0 mg/dL 1.3 (H) 1.5 (H) 1.5 (H) eGFR >=60 mL/min 47 (L) 39 (L) 37 (L) eGFR >60 K 3.5 - 5.1 mmol/L 3.8 3.5 4.1 Hb 12.0 - 15.3 g/dL 8.7 (L) 9.6 (L) 11.2 (L) 12.1 12.4 Latest Ref Rng 12/19/2022 02/27/2023 03/06/2023 03/13/2023 NEPH-FLOW Bun 6 - 20 mg/dL 32 (H) 35 (H) 39 (H) 26 (H) Cr 0.5 - 1.0 mg/dL 1.6 (H) 1.8 (H) 1.8 (H) 1.7 (H) eGFR >=60 mL/min 35 (L) 31 (L) 30 (L) 32 (L) eGFR >60 K 3.5 - 5.1 mmol/L 4.2 4.4 3.6 3.8 Hb 12.0 - 15.3 g/dL 12.6 12.4 Recent Labs Units 05/07/23 1255 03/06/23 1128 12/19/22 1356 10/24/22 1108 09/18/22 0850 HGB g/dL 12.0 12.4 12.6 12.4 12.1 FERRITIN - [facility] ng/mL -- 299* 88 186* 80 TRANSFERRIN SATURATION PERCENT - [facility] % -- 13* 10* 14* 14* Recent Labs Units 05/07/23 1255 04/29/23 1003 04/24/23 1127 04/17/23 1145 04/03/23 1130 03/21/23 0942 03/13/23 1145 02/27/23 1219 12/19/22 1356 11/28/22 0957 08/24/21 1528 06/07/21 1035 CALCIUM - [facility] mg/dL 10.0 10.1 10.0 10.0 < > 9.8 9.8 < > 10.0 10.1 < > 10.1 PHOSPHORUS - [facility] mg/dL -- -- -- -- -- 3.0 -- -- 3.2 3.2 -- -- 25-HYDROXY VITAMIN D - [facility] ng/mL -- -- -- -- -- 68 -- -- -- -- -- 39 PTH - [facility] pg/mL -- -- -- -- -- 151* 157* -- -- -- -- -- < > = values in this interval not displayed. Recent Labs Units 04/24/23 1127 11/28/22 0957 05/30/22 1425 12/13/21 0455 HEMOGLOBIN A1C - [facility] % 7.3* 7.0* 6.6* 6.1* Recent Labs Units 05/07/23 1255 12/03/22 1434 02/05/22 1243 ALBUMIN / CREATININE RATIO, URINE - [facility] mg/g Creat 400* 594* 168* Recent Labs Units 12/12/21 1853 CLARITY, URINE - [facility] Clear GLUCOSE, URINE - [facility] mg/dL Negative BILIRUBIN, URINE - [facility] Negative KETONE, URINE - [facility] mg/dL Negative SPECIFIC GRAVITY, URINE - [facility] 1.007 BLOOD, URINE - [facility] Trace* PH, URINE - [facility] Units 6.0 PROTEIN, URINE - [facility] mg/dL Negative UROBILINOGEN, URINE - [facility] mg/dL 1.0 NITRITE, URINE - [facility] Negative ESTERASE, URINE - [facility] Small* BACTERIA, URINE - [facility] /HPF 151-200* WBC, URINE - [facility] /HPF 10-19* RBC, URINE - [facility] /HPF 3-5* ASSESSMENT AND PLAN: Stage 3b chronic kidney disease (HCC) (Primary) - ALBUMIN / CREATININE RATIO, URINE - HGB - MAGNESIUM - URIC ACID - OSMOLALITY, SERUM - OSMOLALITY, URINE Iron deficiency anemia, unspecified iron deficiency anemia type - HGB Abnormal radiologic findings on diagnostic imaging of renal pelvis, ureter, or bladder Chronic hyponatremia Chronic right-sided heart failure (HCC) Albuminuria Other chronic postprocedural pain Hypertension goal BP (blood pressure) < 130/80 Hyperparathyroidism, secondary renal (HCC) Follow Up: Return in about 6 weeks (around 06/18/2023) for clinic visit w/ , clinic visit w/ [place]. |For: clinic visit w/ , clinic visit w/ [place] | Check-out note: Either provider Waitlist CKD3 w/ recent episode of stage 2 VICKY managed as OP, improving on last labs but now need recheck since she's back on torsemide at lower dose. High risk patient with challenging comorbidities, particularly R HF. Significant albuminuria and will need ARB trial when stable ( hx cough w/ ACEI). Some ESRD risk by KFRE which I believe underestimates her true risk given volume / HF issues At 1 years 5.14% At 3 years 15.18% -ARB trial deferred for now -?consider SGLT2i but would d/w cardiology; ? Indications in RHF -appropriate renal diet discussed -TW as below -cont fluid, sodium limits -referred for CKD CM since she's high risk F/U sodium labs on recheck > urine studies added BP w/ acceptable control -cont torsemide, spironolactone, metoprolol current doses HPTH managed w/ D3 currently; stable and appropriate for CKD 3 Patient Instructions -continue 2L fluid limit and <2 gm daily sodium diet -no medication change for now but will look to see if we can lower torsemide -be mindful/moderate about potassium/phosphorus but you do not need to be strict about these -avoid medicines like aleve, advil, ibuprofen, aspirin more than 81 mg daily and other NSAIDS whichare not good for kidney patients. Take only tylenol (acetaminophen) up to 2000 mg daily as needed for pain or as directed by your primary care provider. >talk to Dr Ray's team about pain control -for now your "target" weight is 138-140 lb -will have CKD Brusher Machine follow you as well I spent a total of 40-54 minutes (exact time 50 mins) on the date of service in preparation, delivery, and documentation of the care provided to Abdi Bowling excluding any time spent in the performance of separately billed services. Aliyah Lacey MD Nephrology [address] [place] [address] CC: Ref: SELF[[id number]] NO STREET ADDRESS AVAILABLE None (office) None (fax) [facility] [place] [address] [phone] This chart was completed in part utilizing Deenty Speech Voice Recognition Software. Randomword insertions, pronoun errors, and incomplete sentences are an occasional consequence of this system due to software limitations, and ambient noise. Any questions or concerns about the content, text, or information contained within the body of this dictation should be directly addressed to the provider for clarification. documented in this encounter Nursing Notes * Wilfredo Ochoa LPN - 05/07/2023 1:13 PM EDT Chief Complaint Patient presents with Follow Up Follow up for stage 3 Kidney disease documented in this encounter Plan of Treatment Upcoming Encounters Date Type Department Care Team (Late st Contact Info) Description 05/14/2023 4:00 PM EDT [facility] Visit [facility], [facility] [address] [facility] [facility] [place] [address] Valentina Laws RN [address] [place] [address] 05/15/2023 9:30 AM EDT Laboratory Lab Mobile [facility]bot[facility] [address] [place], [place] [id number] [facility] Mobile Home Draw [address] [place] [address] 05/16/2023 6:00 AM EDT Anticoagulation Pharmacy Call Center [address] [place] [address] [facility], [facility] [address] [place] [address] 05/21/2023 12:30 PM EDT Scheduled Telephone [facility], [facility] [address] [facility] [place] [address] Vee Santacruz RDN [address] [place] [place] [address] 06/04/2023 1:30 PM EDT Office Visit Allergy/Immunology [facility] [address] [place] [address] Macario Pathak MD [address] [place] [address] 06/10/2023 12:20 PM EDT Office Visit Family [address] [phone] Shara Ray MD [address] [place] [address] [place] [address] 06/21/2023 8:00 AM EDT Laboratory Lab Mobile Phlebotomy [facility] [address] [place] [address] [facility] Mobile Home Draw [address] [place] [address] 06/21/2023 2:30 PM EDT Office Visit Cardiology, [facility] [address] [place] [address] Hadley Molina MD 132 [place] [address] 06/24/2023 11:00 AM EDT Office Visit Hematology/Oncology [facility] [address] [facility] [place] [phone] Bouchra Del Cid CRNP [address] [place] [address] 07/04/2023 2:40 PM EDT Office Visit Nephrology [address] [place] [address] Aliyah Lacey MD [address] [facility] [place] [address] 08/05/2023 1:00 PM EDT Nurse Only Ancillary [address] [place] [address] [place], Nurse Annual [address] [place] [address] 09/20/2023 8:00 AM EDT Laboratory Lab Mobile Phlebotomy [facility] [address] [place] [address] [facility], [facility] Mobile Home Draw [address] [place], [place] [address] 09/24/2023 11:30 AM EDT Office Visit Nephrology, [facility] [address] [place], [place] [address] ZeKary bliss PA-C 200 [facility] [place], [place] [address] 12/20/2023 8:00 AM EDT Laboratory Lab Mobile Phlebotomy [facility] [address] [place] [address] [facility], [facility] Mobile Home Draw [address] [place] [address] 03/27/2024 8:00 AM EST Laboratory Lab Mobile Phlebotomy [facility] [address] [place], [place] [id number] [facility], [facility] Mobile Home Draw [address] [place] [address] Scheduled Procedures Name Priority Associated Diagnoses Date/Ti [...] Additional history exists CKD PHOS USE SMARTSET 37016 03/21/2024 02/0 02/2023, 12/19/2022, 11/28/2022, Additional history exists Albumin/Creatinine Ratio 05/06/2024 024, 12/03/2022, 02/05/2022, Additional history exists CKD HGB USE SMARTSET 10179 05/06/202405/06, 03/06/2023, 03/06/2023, Additional history exists O2 [...] this encounter Medical Devices Implanted Type Area [employer] Device Identifier Shelf Expiration Date Model / Serial / Lot [place] S[employer]ocomposite - Sn/A - [id number] Implanted:Qty: 2 on 12/13/2021 by Moris Jimenez DO at OR [facility] Left: Leg Lower [employer] 07/18/2024 [id number] / N/A / [id number] [employer] Bbtrauma Foam Pack - [id number] - [id number] Implanted:Qty: 1 on 12/13/2021 by Moris Jimenez DO at OR [facility] Left: Leg Lower MICHA : TRAUMA 01/15/2022 [id number] / [id number] / [id number] documented as of this encounter Procedures Procedure Name Priority Date/Time Associated Diagnosis Comments HGB Routine 05/07/2023 12:55 PM EDT Stage 3b chronic kidney disease (HCC) Iron deficiency anemia, unspecified iron deficiency anemia type OSMOLALITY, SERUM Routine 05/07/2023 12: 55 PM EDT Stage 3b chronic kidney disease (HCC) ALBUMIN / CREATININE RATIO, URINE Routine 05/07/2023 12:55 PM EDT Stage 3b chronic kidney disease (HCC) URIC ACID Routine 05/07/2023 12:55 PM EDT Stage 3b chronic kidney disease (HCC) OSMOLALITY, URINE Routine 05/07/2023 12: 55 PM EDT Stage 3b chronic kidney disease (HCC) MAGNESIUM Routine 05/07/2023 12:55 PM EDT Stage 3b chronic kidney disease (HCC) documented in this encounter Results * OSMOLALITY, URINE (05/07/2023 12:55 PM EDT) Osmolality, Urine 255 50 - 1,200 mOsm/kg 05/07/2023 11:47 PM EDT LABORATORY [facility] Urine Urine specimen obtained by clean catch procedure / Unknown Non-blood Collection / Unknown 05/07/2023 12:55 PM EDT 05/07/2023 12:55 PM EDT Aliyah Lacey MD LAB URINE ORDERAB LES LAB[facility]AT[facility] [address] [place] [address] * OSMOLALITY, SERUM (05/07/2023 12:55 PM EDT) Osmolality, Serum 293 278 - 305 mOsm/kg 05/07/2023 11:51 PM EDT LABORATORY [facility] Blood Venous blood specimen / Unknown Venipuncture / Unknown 05/07/2023 12:55 PM EDT 05/07/2023 12:55 PM EDT Aliyah Lacey MD LAB BLOOD ORDERAB LES Performing Organization Address [facility] Co de Phone Number LABORATORY [facility] [address] [place] [address] * (ABNORMAL) URIC ACID (05/07/2023 12:55 PM EDT) Uric Acid 5.8(H) 2.4 - 5.7 mg/dL 05/08/2023 2:19 AM EDT LABORATORY [facility] Blood Venous blood specimen / Unknown Venipuncture / Unknown 05/07/2023 12:55 PM EDT 05/07/2023 12:55 PM EDT Aliyah Lacey MD LAB BLOOD ORDERAB LES Performing Organization Address [facility] Co de Phone Number LABORATORY [facility] [address] [place] [address] * MAGNESIUM (05/07/2023 12:55 PM EDT) Magnesium 2.6 1.5 - 2.6 mg/dL 05/08/2023 2:19 AM EDT LABORATORY [facility] Blood Venous blood specimen / Unknown Venipuncture / Unknown 05/07/2023 12:55 PM EDT 05/07/2023 12:55 PM EDT Aliyah Lacey MD LAB BLOOD ORDERAB LES Performing Organization Address [facility] de Phone Number LABORATORY [facility] [address] [place] [address] * HGB (05/07/2023 12:55 PM EDT) HGB 12.0 12.0 - 15.3 g/dL 05/08/2023 12:19 AM EDT LABORATORY [facility] Blood Venous blood specimen / Unknown Venipuncture / Unknown 05/07/2023 12:55 PM EDT 05/07/2023 12:55 PM EDT Aliyah Lacey MD LAB BLOOD ORDERAB LES Performing Organization Address [facility] Co de Phone Number LABORATORY [facility] [address] [place] [address] * (ABNORMAL) ALBUMIN / CREATININE RATIO, URINE (05/07/2023 12:55 PM EDT) Albumin, Random Urine 17.61 mg/dL 05/08/2023 12:20 AM EDT [facility] Creatinine, Random Urine 44 mg/dL 05/08/2023 12:20 AM EDT [facility] Albumin / Creatinine Ratio, Urine 400(H) <30 mg/g Creat 05/08/2023 12:20 AM EDT [facility] Urine Urine specimen obtained by clean catch procedure / Unknown Non-blood Collection / Unknown 05/07/2023 12:55 PM EDT 05/07/2023 12:55 PM EDT Narrative [facility] - 05/08/2023 12:20 AM EDT Normal: <30 mg/g creatinine High: 30-300 mg/g creatinine Very High: >300 mg/g creatinine Nephrotic: >2200 mg/g creatinine Aliyah Lacey MD LAB URINE ORDERAB LES Performing Organization Address [facility] Co de Phone Number [facility] [address] [place] [address] documented in this encounter Visit Diagnoses Diagnosis Stage 3b chronic kidney disease (HCC)- Primary Iron deficiency anemia, unspecified iron deficiency anemia type Abnormal radiologic findings on diagnostic imaging of renal pelvis, ureter, or bladder Chronic hyponatremia Hyposmolality and/or hyponatremia Chronic right-sided heart failure (HCC) Congestive heart failure, unspecified Albuminuria Proteinuria Other chronic postprocedural pain Hypertension goal BP (blood pressure) < 130/80 Unspecified essential hypertension Hyperparathyroidism, secondary renal (HCC) Secondary hyperparathyroidism (of renal origin) documented in this encounter Advance Directives Latest Code Status on File Code Status Date Activated Date Inactivated Comments Full Code 12/12/2021 7:18 PM 12/20/2021 6:08 PM This order reflects the patients wishes and were consensually agreed upon. Question Answer Comments Discussion of Advance Directives occurred with: Patient Care Teams Mountain Services Manager Relationship Specialty Start Date End Date Shara Ray MD [address] [place] [address] [place] [address] PCP - General Family Medicine 03/08/23 documented as of this encounter
--- OUTSIDE RECORDS SUMMARY | 2023-07-10 17:08 | External Medical Summary | Summary of Care ---
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*; History [...] as of this encounter (statuses as of 05/08/2023) Medications Medication Sig Dispensed Refills Start Date [...] Active Additional Information Patient not taking.Reported on 05/07/2023 D3-1000 25 MCG (1000 UT) Oral Capsule [...] 100 Tablet 0 02/07/2023 4 Active Nystatin 754376 UNIT/ML Mouth/Throat SuspensionIndication s:Thrush Swish and swallow [...] by mouth daily as directed by [facility] 180 Tablet 3 03/06/2023 Active Nitroglycerin 0.4 [...] Active Additional Information Patient not taking.Reported on 05/07/2023 Torsemide 100 MG Oral Tablet (Demadex)Indications :Acute on chronic right-sided heart failure (HCC),S/P mitral valve replacement,Permanen t atrial fibrillation (HCC) Take 0.5 Tablets by mouth in the morning. 45 Tablet 3 05/02/2023 Active documented as of this encounter (statuses as of 05/08/2023) Active Problems Problem Noted Date Diagnosed Date Major depressive disorder, recurrent, moderate 0 04/03/2023 Last Assessment & Plan: Mood stable on current dose celexa Other persistent atrial fibrillation 04/03/2023 Last Assessment & Plan: Rate controlled Continue coumadin Atherosclerosis of resighini co ronary artery without angina pectoris 04/03/2023 [...] IM/IV Chest Xray Additional Comments: Followed by manager gallery - Dr. 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 0 05/10/2004 Overview: ICD-10 update of inactive term Rheumatic heart disease 03/05/2002 Old myocardial infarct 01/02/2001 Last Assessment & Plan: Continue Crestor 20 mg daily S/P mitral valve replacement Last Assessment & Plan: Chronic AC coumadin Atherosclerosis of resighini co ronary artery of resighini heart without angina pectoris documented as of this encounter (statuses as of 05/08/2023) Resolved Problems Problem Noted Date Diagnosed Date [...] Overview: Per CKD protocol #1 ORBIT-[employer] Other*[id number] 06/02/2010 04/18/2011 Overview: PROJECT: #[id number], SPONSOR: Aileen, PI: Adolfo De Jesus MD [...] can be closed. CONTACT: Roberto Carlos Huertas, Microbiology Laboratory Manager Type 2 diabetes mellitus wit h [...] as of this encounter (statuses as of 05/08/2023) Immunizations Name Administration Dates Next Due COVID-19 [...] this encounter Progress Notes * Judith Nassar PHARM Tech - 05/08/2023 11:42 AM EDT Contacts Type Contact Phone/Fax 05/08/2023 11:38 AM EDT Phone (Outgoing) Abdi Bowling (Self) [phone] (M) Spoke to Patient Subjective Patient Findings [...] communicated as noted by Pharmacist: Yes GORGE ANSARI 05/08/2023, 11:42 AM * Harry Villagomez RPh - 05/08/2023 9:18 AM EDT Images from the original note were not included. Coumadin Clinic (region specific) Objective Current Warfarin Dose As of 05/08/2023 Warfarin maintenance plan: 5 mg (2.5 mg x 2) every Tue, Sat; 3.75 mg (2.5 mg x 1.5) all other days INR Result As of 05/08/2023 INR goal: 3.0-3.5 INR used for dosin.6 (05/07/2023) Assessment & Plan Warfarin Plan As of 05/08/2023 Full warfarin instructions: 05/07: 5 mg; Otherwise 5 mg every Tue, Pascale, Sat; 3.75 mg all other days Next INR check: 05/15/2023 Repeat PT/INR in 1 week(s) Weekly dose: increased Additional Dosing Information: Description L ramsey Dunn Wed ([facility], [facility], or [facility]) My G Sent Tech to contact patient with dose instructions as noted. Harry Villagomez RPh 05/08/2023, 9:20 AM documented in this encounter Plan of Treatment Upcoming Encounters Date Type Department Care Team (Late st Contact Info) Description 05/09/2023 11:20 AM EDT Office Visit Family Medicine [address] [phone] Chastity Kim PA-C [address] [place] [address] [place] [address] 05/14/2023 4:00 PM EDT [facility], [facility] [address] [place] [address] Valentina Laws, RN [address] [place] [address] 05/15/2023 9:30 AM EDT Laboratory Lab Mobile Phlebotomy [facility] [address] [facility] [place] [id number] [facility], [facility] Mobile Home Draw [address] [place] [address] 05/16/2023 6:00 AM EDT Anticoagulation Pharmacy Call Center WB [phone] [place] [place] [address] [facility], [facility] 58 60 [facility] [place] [address] 05/21/2023 12:30 PM EDT Scheduled Telephone [facility], [facility] [address] [facility] [place]ia [place] [address] Vee Santacruz, RDN [address] [facility] [place] [address] 06/04/2023 1:30 PM EDT Office Visit Allergy/Immunology [facility] [address] [place] [address] Macario Pathak MD 200 [place] [address] 06/10/2023 12:20 PM EDT Office Visit Family Medicine [address] [phone] Shara Ray MD [address] [place] [address] [place] [address] 06/21/2023 8:00 AM EDT Laboratory Lab Mobile Phlebotomy [facility] [address] [place] [address] [facility] Mobile Home Draw [address] [place] [address] 06/21/2023 2:30 PM EDT Office Visit Cardiology, [facility] [address] [place] [address] Hadley Molina MD [address] [place] [address] 06/24/2023 11:00 AM EDT Office Visit Hematology/Oncology [employer] [address] [place] [address] Bouchra Del Cid CRNP 400 [facility] [place] [address] 07/04/2023 2:40 PM EDT Office Visit Nephrology [address] [place] [address] Aliyah Lacey MD [address] [place] [address] 08/05/2023 1:00 PM EDT Nurse Only Ancillary [address] [place] [address] [place], Nurse [address] [place] [address] 09/20/2023 8:00 AM EDT Laboratory Lab Mobile Phlebotomy [facility] [address] [place] [address] [facility], [facility] Mobile Home Draw [address] [place] [address] 09/24/2023 11:30 AM EDT Office Visit Nephrology, [facility] 200 [facility] [place] [address] Kary Pena PA-C 200 [facility] [place] [address] 12/20/2023 8:00 AM EDT Laboratory Lab Mobile Phlebotomy [facility] [address] [facility] [place] [address] [facility], l Mobile Home Draw [address] [place] [address] 03/27/2024 8:00 AM EST Laboratory Lab Mobile Phlebotomy [facility] [address] [place] [address] [facility], [facility] Mobile Home Draw [address] [place] [address] Scheduled Procedures Name Priority Associated Diagnoses Date/Ti [...] Additional history exists CKD PHOS USE SMARTSET 41493 03/21/2024 02/0 02/2023, 12/19/2022, 11/28/2022, Additional history exists Albumin/Creatinine Ratio 05/06/20242 024, 12/03/2022, 02/05/2022, Additional history exists CKD HGB USE SMARTSET 78227 05/06/202405/06, 03/06/2023, 03/06/2023, Additional history exists O2 ASSESSMENT COMPLETED IN PAST YEAR FOR COPD 05/06/2024 05/07/2023 DTaP,Tdap,and Td Vaccines (3 - Td or [...] this encounter Medical Devices Implanted Type Area Utility Worker Production Device Identifier Shelf Expiration Date Model / Serial / Lot Lacey Suture Biocomposite - Sn/A - [id number] Implanted:Qty: 2 on 12/13/2021 by Moris Jimenez DO at OR [facility] Left: Leg Lower [employer] 07/18/2024 [id number] / N/A / [id number] Vitoss Bbtrauma Foam Pack - [id number] - [id number] Implanted:Qty: 1 on 12/13/2021 by Moris Jimenez DO at OR [facility] Left: Leg Lower MICHA : TRAUMA 01/15/20228451-9508 / [id number] / [id number] documented as of this encounter Visit Diagnoses Diagnosis 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
--- OUTSIDE RECORDS SUMMARY | 2023-07-10 17:09 | External Medical Summary ---
Author Name Unknown Address Unknown Organization K01:LABORATORY C - [address] [place] [address] Laboratory Report Ordering Provider Test Date Status CHERIE VILLAR 05/07/2023 12:55:01 Final Observation Date Value Abnormality Reference (Units ) Status Osmolality 05/07/2023 12:55:01 293 278-305 ( mOsm/kg) Final Performing Location [facility]ORY [facility] - [address] [place] [address]
--- OUTSIDE RECORDS SUMMARY | 2023-07-10 17:09 | External Medical Summary ---
Author Name Unknown Address Unknown Organization K01:[facility] - [address] [place] [address] Laboratory Report Ordering Provider Test Date Status ANGE ATKINSON 05/07/2023 12:55:01 Final Observation Date Value Abnormality Reference (Units ) Status MYCODE SPECIMEN-SST 05/07/2023 12:55:01 Freezing of extracted DNA, whole blood and/or serum. Final Performing Location LABORATORY C - [address] [place] [address]
--- OUTSIDE RECORDS SUMMARY | 2023-07-10 17:09 | External Medical Summary ---
Author Name Unknown Address Unknown Organization K01:LABORATORY C - [address] [place] [address] Laboratory Report Ordering Provider Test Date Status CHERIE VILLAR 05/07/2023 12:55:01 Final Observation Date Value Abnormality Reference (Units ) Status Hemoglobin 05/07/2023 12:55:01 12.0 12.0-15.3 (g/dL) Final Performing Location LAB[facility] - [address] [place] [address]
--- OUTSIDE RECORDS SUMMARY | 2023-07-10 17:09 | External Medical Summary ---
Author Name Unknown Address Unknown Organization K01:[facility] [place] [address] [place] [address] Laboratory Report Ordering Provider Test Date Status AUREACHERIE 05/07/2023 12:55:01 Final Normal: <30 mg/g creatinine< br/>High: 30-300 mg/g creatinine
Very High: >300 mg/g creatinine
Nephrotic: >2200 mg/g creatinine Observation Date Value Abnormality Reference (Units ) Status Albumin, Urine 05/07/2023 12:55:01 17.61 (mg/dL) Final Creatinine, Urine 05/07/2023 12:55:01 44 (mg/dL) Final Albumin/Creatinine [Mass Ratio] in Urine 05/07/2023 12:55:01 400 Above high normal <30 (mg/g Creat) Final Performing Location [facility] - [address] [place] [address]
--- OUTSIDE RECORDS SUMMARY | 2023-07-10 17:09 | External Medical Summary | Summary of Care ---
Author Name Unknown Organization [facility] Address [address] [facility] [place] [address] Phone [phone] Care Team Providers Care National Recruiter Name Role Phone Shara Ray MD Primary Care Provide r Reason for Visit * Reason Comments Outpatient Testing Encounter Details Date Type Department Care Team (Late st Contact Info) Description 05/07/2023 12:50 PM EDT Laboratory Laboratory [address] [place] [phone] [facility] Lab [address] [place] [address] [place] Other*[id number]; jail current use of anticoagulant therapy; History of TIA (transient ischemic attack); S/P mitral valve replacement; Permanent atrial fibrillation (HCC); Acute on chronic right-sided heart failure (HCC); Stage 3b chronic kidney disease (HCC) Allergies Active Allergy Reactions Criticality Noted [...] as of this encounter (statuses as of 05/07/2023) Medications Medication Sig Dispensed Refills Start Date [...] 100 Tablet 0 02/07/2023 4 Active Nystatin 035006 UNIT/ML Mouth/Throat SuspensionIndication s:Thrush Swish and swallow [...] tablets by mouth daily as directed by [facility] 180 Tablet 3 03/06/2023 Active Nitroglycerin 0.4 MG Sublingual Tablet Sublingual (Nitrostat)Indicatio ns:Old myocardial infarct,Atrial fibrillation (HCC),HTN, goal to be determined PLACE 1 TABLET UNDER THE TONGUE EVERY 5 MINUTES UP TO 3 DOSES NEEDED FOR CHEST PAIN. IF NO RELIEF CALL 911 OR GO TO ER 75 Tablet 0 03/08/2023 Active Morphine Sulfate ER 15 MG Oral Tablet Extended Release (MS Contin)Indications:G eneralized osteoarthritis,Hemat sawyer of left lower leg Take 1 Tablet by mouth daily as needed for Pain, Severe. Only as needed for pain 30 Tablet 0 03/08/2023 Active traMADol HCl 50 [...] as of this encounter (statuses as of 05/07/2023) Active Problems Problem Noted Date Diagnosed Date Major depressive disorder, recurrent, moderate 0 04/03/2023 Last Assessment & Plan: Mood stable on current dose celexa Other persistent atrial fibrillation 04/03/2023 Last Assessment & Plan: Rate controlled Continue coumadin Atherosclerosis of stebbins co ronary artery without angina pectoris 04/03/2023 [...] IM/IV Chest Xray Additional Comments: Followed by account management assistant - Dr. Rashel Sales [facility] Closed nondisplaced fracture of left tibial tuberosity with routine healing 12/12/2021 Mild protein-calorie malnutrition 12/05/2021 Controlled substance agreement signed 12/05/2021 Hematoma of leg, left, subsequent encounter 09/2021 Overview: [facility] ER ulstrasound shows hematoma calf, INR [...] & Plan: Symptoms well controlled on omeprazole jail current use of anticoagulant therapy 0 05/10/2004 Overview: ICD-10 update of inactive term Rheumatic heart disease 03/05/2002 Old myocardial infarct 01/02/2001 Last Assessment & Plan: Continue Crestor 20 mg daily S/P mitral valve replacement Last Assessment & Plan: Chronic AC coumadin Atherosclerosis of stebbins co ronary artery of stebbins heart without angina pectoris documented as of this encounter (statuses as of 05/07/2023) Resolved Problems Problem Noted Date Diagnosed Date [...] Overview: Per CKD protocol #1 ORBIT-AF Research Other*[id number] 06/02/2010 04/18/2011 Overview: PROJECT: #[id number], SPONSOR: Aileen, PI: Adolfo De Jesus MD [...] can be closed. CONTACT: Roberto Carlos Huertas, Job Setter Type 2 diabetes mellitus wit h hemoglobin A1c goal of less than 7.0% 04/24/2010 08/29/2018 Overview: ICD-10 update of inactive term ACTIVE CASE MANAGEMENT Kassie Anthony RN [phone] 05/10/19 10 12/05/2009 ADVANCE DIRECTIVE INFORMATION 05/09/2009 [...] as of this encounter (statuses as of 05/07/2023) Immunizations Name Administration Dates Next Due COVID-19 [...] 05/07/2023 1:40 PM EDT Office Visit Nephrology [address] [place] [address] Aliyah Lacey MD [address] [place] [address] [place] [address] Stage 3b chronic kidney disease (HCC)*; Iron deficiency anemia, unspecified iron deficiency anemia type; Weight gain 05/08/2023 9:10 AM EDT Laboratory Lab [facility] [address] [place] [address] [facility], [facility] Mobile Home Draw [address] [place] [address] 05/09/2023 6:00 AM EDT Anticoagulation Pharmacy Call Center [phone] [place] [address] C[facility], [place] [facility] [place] 58 60 [facility] [place] [address] 05/14/2023 4:00 PM EDT [facility] Visit [facility], [place] [facility] 132 [facility] [place] [address] Valentina Laws, TANISHA 132 [facility] [place] [address] 05/21/2023 12:30 PM EDT Scheduled Telephone [facility], [facility] [address] [facility] [place] [address] Vee Santacruz RDN [address] [facility] [place] [address] 06/04/2023 1:30 PM EDT Office Visit Allergy/Immunology [facility] 200 [facility] [place] [address] Macario Pathak MD 200 [facility] [place] [address] 06/10/2023 12:20 PM EDT Office Visit Family Medicine [address] [phone] Shara Ray MD [address] [place] [address] [place] [address] 06/21/2023 8:00 AM EDT Laboratory Lab Mobile Ph[facility]botomy [facility] [address] [place] [address] [facility], [facility] Mobile Home Draw [address] [place] [address] 06/21/2023 2:30 PM EDT Office Visit Cardiology, [facility] 132 [place] [address] Hadley Molina MD 132 [place] [address] 06/24/2023 11:00 AM EDT Office Visit Hematology/Oncolog y [facility] [place] 200 [facility] [place] [phone] Bouchra Del Cid CRNP 400 [facility] [place] [address] 08/05/2023 1:00 PM EDT Nurse Only Ancillary [address] [place] [address] [place], Nurse [address] [place] [address] 09/20/2023 8:00 AM EDT Laboratory Lab Mobile Phlebotomy [facility] [address] [place] [address] [facility], [facility] Mobile Home Draw [address] [place] [address] 09/24/2023 11:30 AM EDT Office Visit Nephrology, [facility] 200 [facility] [place] [address] ZeKary bliss PA-C 200 [facility] [place] [address] 12/20/2023 8:00 AM EDT Laboratory Lab Mobile Phlebotomy C [address] [place] [address] Gm, [facility] Mobile Home Draw [address] [place], [place] [address] 03/27/2024 8:00 AM EST Laboratory Lab Mobile Phlebotomy C [address] [place] [address] [facility], [facility] Mobile Home Draw [address] [place], [place] [id number] Pending Results Name Type Priority Associated Diagnoses Date /Time MYCODE SUBSEQUENT ADULT Lab Routine [employer] Research Other*[id number] 05/07/2023 12:55 PM EDT PT INR Lab Routine jail current use of anticoagulant therapy History of TIA (transient ischemic attack) S/P mitral valve replacement Permanent atrial fibrillation (HCC) 05/07/2023 12:55 PM EDT BASIC METABOLIC PANEL Lab Routine Acute on chronic right-sided heart failure (HCC) S/P mitral valve replacement Permanent atrial fibrillation (HCC) 05/07/2023 12:55 PM EDT MYCODE SST1 Lab Routine [employer] Other*[id number] 05/07/2023 12:55 PM EDT MYCODE SST2 Lab Routine [employer] Other*[id number] 05/07/2023 12:55 PM EDT Scheduled Procedures Name Priority Associated Diagnoses [...] 04/24/2023, 11/18, 05/30/2022, Additional history exists GFR 10/30/2023 04/29/2023, 030 07/2023, 04/17/2023, Additional history exists Mammogram 11/16/2023 11/15/2022, 10/20, 07/03/2021, Additional history exists Albumin/Creatinine Ratio 12/04/2023 023, 02/05/2022, 01/26/2021, Additional history exists CKD HGB USE SMARTSET 97327 03/06/202403/06, 03/06/2023, 12/19/2022, Additional history exists CKD PHOS USE SMARTSET 79567 03/21/2024 02/0 02/2023, 12/19/2022, 11/28/2022, Additional history exists O2 ASSESSMENT COMPLETED IN PAST YEAR FOR COPD 04/23/2024 04/24/2023 DTaP,Tdap,and Td Vaccines (3 - Td or [...] this encounter Medical Devices Implanted Type Area Cutter Brake Lining Device Identifier Shelf Expiration Date Model / Serial / Lot [place] Suture Biocomposite - Sn/A - [id number] Implanted:Qty: 2 on 12/13/2021 by Moris Jimenez, DO at OR [facility] Left: Leg Lower [employer] 07/18/2024 [id number] / N/A / [id number] Vitoss Bbtrauma Foam Pack - [id number] - [id number] Implanted:Qty: 1 on 12/13/2021 by Moris Jimenez, DO at OR [facility] Left: Leg Lower MICHA : TRAUMA 01/15/20225922-6928 / [id number] / [id number] documented as of this encounter Visit Diagnoses Diagnosis Stage 3b chronic kidney disease (HCC)- Primary Iron deficiency anemia, unspecified iron deficiency anemia type Weight gain Abnormal weight gain [employer] 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*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 Question Answer Comments Discussion of Advance Directives occurred with: Patient Care Teams National Recruiter Relationship Specialty Start Date End Date Shara Ray MD [address] [place] [address] [place] [address] PCP - General Family Medicine 03/08/23 documented as of this encounter
--- OUTSIDE RECORDS SUMMARY | 2023-07-10 17:09 | External Medical Summary ---
Author Name Unknown Address Unknown Organization K01:LAB[facility]ATORY [facility] [place] [address] [place] [address] Laboratory Report Ordering Provider Test Date Status TOÑA HONG 05/07/2023 12:55:01 Final Observation Date Value Abnormality Reference (Units ) Status BUN 05/07/2023 12:55:01 27 Above high normal 6-20 (mg/dL) Final Creatinine 05/07/2023 12:55:01 1.7 Above high normal 0.5-1.0 (mg/dL) Final Glomerular filtration rate/1.73 sq M.predicted [Volume Rate/Area] in Serum, Plasma or Blood by Creatinine-based formula (CKD-EPI) 05/07/2023 12:55:01 32 Below low normal >=60 (mL/min) Final eGFR is calculated based on the CKD-EPI 2020 equation SODIUM 05/07/2023 12:55:01 134 Below low normal 135 -146 (mmol/L) Final Potassium 05/07/2023 12:55:01 3.9 3.5-5.1 (m mol/L) Final Cl 05/07/2023 12:55:01 95 Below low normal 98- 107 (mmol/L) Final CO2 05/07/2023 12:55:01 27 22-32 (mmo l/L) Final Anion gap 05/07/2023 12:55:01 12 7-15 (mmol /L) Final Glucose 05/07/2023 12:55:01 120 70-120 (mg /dL) Final Calcium 05/07/2023 12:55:01 10.0 8.4-10.2 ( mg/dL) Final Performing Location LAB[facility]ATORY [facility] [place] [address] [place] [address]
--- OUTSIDE RECORDS SUMMARY | 2023-07-10 17:09 | External Medical Summary ---
Author Name Unknown Address Unknown Organization K01:[facility]ORY [facility] [place] [address] [place] [address] Laboratory Report Ordering Provider Test Date Status SONIA PANTOJA 05/07/2023 12:55:01 Final Standing order for pt/inr. < br/>Please draw pt/inr every 1 to 4 weeks as requested.
Results to [facility]

Warfarin Therapy
INR: 2.0-3.0 conventional anticoagulation
INR: 2.5-3.5 high intensity anticoagulation Observation Date Value Abnormality Reference (Units ) Status PT 05/07/2023 12:55:01 28.1 Above high normal 11 .6-15.2 (seconds) Final INR 05/07/2023 12:55:01 2.6 Above high normal 0. 8-1.2 Final Performing Location LAB[facility]ORY [facility] [place] [address] [place] [address]
--- OUTSIDE RECORDS SUMMARY | 2023-07-10 17:10 | External Medical Summary ---
Author Name Unknown Address Unknown Organization K01:[facility] [place] [address] [place] [address] Laboratory Report Ordering Provider Test Date Status CHERIE VILLAR 05/07/2023 12:55:01 Final Observation Date Value Abnormality Reference (Units ) Status Uric Acid 05/07/2023 12:55:01 5.8 Above high normal 2. 4-5.7 (mg/dL) Final Performing Location LABORATORY [facility] - [address] [place] [address]
--- OUTSIDE RECORDS SUMMARY | 2023-07-10 17:10 | External Medical Summary ---
Author Name Unknown Address Unknown Organization K01:[place] [facility] [place] [address] [place] [address] Laboratory Report Ordering Provider Test Date Status ANGE ATKINSON 05/07/2023 12:55:01 Final Observation Date Value Abnormality Reference (Units ) Status MYCODE SPECIMEN-SST 05/07/2023 12:55:01 Freezing of extracted DNA, whole blood and/or serum. Final Performing Location LABORATORY C - [address] [place] [address]
--- OUTSIDE RECORDS SUMMARY | 2023-07-10 17:10 | External Medical Summary ---
Author Name Unknown Address Unknown Organization K01:LABORATORY [facility] [place] - [address] [place] [address] Laboratory Report Ordering Provider Test Date Status CHERIE VILLAR 05/07/2023 12:55:01 Final Observation Date Value Abnormality Reference (Units ) Status Osmolality, Urine 05/07/2023 12:55:01 255 50 -1200 (mOsm/kg) Final Performing Location LABORATORY [facility] - [address] [place] [address]
--- OUTSIDE RECORDS SUMMARY | 2023-07-10 17:10 | External Medical Summary ---
Author Name Unknown Address Unknown Organization K01:LABORATORY [facility] - [address] [place] [address] Laboratory Report Ordering Provider Test Date Status CHERIE VILLAR 05/07/2023 12:55:01 Final Observation Date Value Abnormality Reference (Units ) Status Magnesium 05/07/2023 12:55:01 2.6 1.5-2.6 (m g/dL) Final Performing Location LABORATORY [facility] - [address] [place] [address]
--- OUTSIDE RECORDS SUMMARY | 2023-07-10 17:11 | External Medical Summary | Summary of Care ---
Author Name Unknown Organization [facility] Address [address] [facility] [place] [address] Phone [phone] Care Team Providers Care Home Stereo Equipment Installer Name Role Phone Shara Ray MD Primary Care Provide r Reason for Visit * Reason Onset Date Comments Follow Up 04/26/2023 Encounter Details Date Type Department Care Team (Late st Contact Info) Description 04/26/2023 Telephone [facility], [facility] [address] [place] [address] Valentina Laws RN [address] [place] [address] Follow Up Allergies Active Allergy Reactions Criticality Noted Date [...] as of this encounter (statuses as of 05/06/2023) Medications Medication Sig Dispensed Refills Start Date [...] 100 Tablet 0 02/07/2023 4 Active Nystatin 384896 UNIT/ML Mouth/Throat SuspensionIndication s:Thrush Swish and swallow [...] days directed 12 Tablet 5 04/08/2023 Active documented as of this encounter (statuses as of 05/06/2023) Active Problems Problem Noted Date Diagnosed Date Major depressive disorder, recurrent, moderate 0 04/03/2023 Last Assessment & Plan: Mood stable on current dose celexa Other persistent atrial fibrillation 04/03/2023 Last Assessment & Plan: Rate controlled Continue coumadin Atherosclerosis of [place] co ronary artery without angina pectoris 04/03/2023 [...] IM/IV Chest Xray Additional Comments: Followed by cheese production supervisor - Dr. Rashel Sales [facility] Closed [...] the Comments) Remote Patient Monitoring Vendor: [facility] Device(s): Connected Scale [...] & Plan: Chronic AC coumadin Atherosclerosis of [place] co ronary artery of [place] heart without angina pectoris documented as of this encounter (statuses as of 05/06/2023) Resolved Problems Problem Noted Date Diagnosed Date [...] Overview: Per CKD protocol #1 [employer]BIT-[employer] Research Other*[id number] 06/02/2010 04/18/2011 Overview: PROJECT: #[id number], SPONSOR: Aileen, PI: Adolfo De Jesus MD [...] can be closed. CONTACT: Roberto Carlos Huertas, Database Administration Associate Type 2 diabetes mellitus wit h hemoglobin [...] as of this encounter (statuses as of 05/06/2023) Immunizations Name Administration Dates Next Due COVID-19 mRNA, LNP-s, No Pre serve, 2-Dose Series (Moderna) 04/19/2020,03/22/2020 COVID-19, MRNA-LNP, 23-24, P F, 30 MCG/0.3 mL, 12 YRS AND ABOVE, IM ([employer]-Comirnaty) 12/03/2022 COVID-19, mRNA, LNP-s, PF, B ooster, [...] Note - Jorge Luis Landeros LPN - 05/06/2023 2:37 PM EDTAddended by: JORGE LUIS LANDEROS on: 05/06/2023 02:37 PM Modules accepted: Orders * Telephone Encounter - Jorge Luis Landeros LPN - 05/06/2023 2:36 PM EDT Pt has provided weight log as requested by Dr Lacey See MyG encounter Pt is aware of need for BMP prior to tomorrows apt Order placed in [employer] system * Telephone Encounter - Aliyah Lacey MD - 05/06/2023 2:07 PM EDT Noted and appreciated Pls recheck bmp tomorrow before appt if possible provided she's back on torse at least 72 hrs * Telephone Encounter - Jorge Luis Landeros LPN - 05/06/2023 1:45 PM EDT Spoke with Pt she has weights for this past week and will send via [employer] message Off note Dr Molina discontinued Torsemide 100 mg on 04/25/23 but restarted at 50 mg on 05/01/23 because of weight gain * Telephone Encounter - Valentina Laws RN - 05/06/2023 1:27 PM EDT Images from the original note were not included. These are her most recent weights. * Telephone Encounter - Aliyah Lacey MD - 05/06/2023 1:22 PM EDT Thank you I see her tomorrow and this will be super helpful. >>is there a way to see the weights for the past week after multiple diuretic adjustments recently? Her renal function looks much better but worry her weights will be over the mistry now Copying my nurse to f/u on getting these wts in time for appt tomorrow * Telephone Encounter - Valentina Laws RN - 04/26/2023 4:27 PM EST Images from the original note were not included. Per request- [facility] weights March documented in this encounter Plan of Treatment Upcoming Encounters Date Type Department Care Team (Late st Contact Info) Description 05/07/2023 1:40 PM EDT Office Visit Nephrology [address] [place] [address] Aliyah Lacey MD [address] [place] [address] [place] [address] 05/08/2023 9:10 AM EDT Laboratory Lab Mobile Phlebotomy [facility] [address] [place] [address] [facility], [facility] Mobile Home Draw [address] [place] [address] 05/09/2023 6:00 AM EDT Anticoagulation Pharmacy Call Center [address] [place] [address] [facility], [facility] [address] [place] [address] 05/14/2023 4:00 PM EDT Home Visit [facility], [facility] [address] [place] [address] Valentina Laws, TANISHA [address] [place] [address] 05/21/2023 12:30 PM EDT Scheduled Telephone [facility], [facility] [address] [place] [facility] [place] [address] Vee Santacruz RDN [address] [place] [facility] [place] [address] 06/04/2023 1:30 PM EDT Office Visit Allergy/Immunology [facility] [place] [address] [facility] [place] [address] Macario Pathak MD [address] [facility] [place] [address] 06/10/2023 12:20 PM EDT Office Visit Family Medicine [address] [phone] Shara Ray MD [address] [place] [address] [place] [address] 06/21/2023 8:00 AM EDT Laboratory Lab Mobile Phlebotomy [facility] [address] [place] [address] [facility], [facility] Mobile Home Draw [address] [place] [address] 06/21/2023 2:30 PM EDT Office Visit Cardiology, [facility] [address] [place] [address] Hadley Molina MD [address] [place] [address] 06/24/2023 11:00 AM EDT Office Visit Hematology/Oncology [facility] [place] [address] [place] [phone] Bouchra Del Cid CRNP [address] [place] [address] 08/05/2023 1:00 PM EDT Nurse Only Ancillary [address] [place] [address] [place], Nurse [address] [place] [address] 09/20/2023 8:00 AM EDT Laboratory Lab Mobile Phlebotomy [place] [address] [place] [address] [facility] Mobile Home Draw [address] [place] [address] 09/24/2023 11:30 AM EDT Office Visit Nephrology, [facility] [address] [facility] [place] [address] Kary Pena PA-C [address] [facility] [place] [address] 12/20/2023 8:00 AM EDT Laboratory Lab Mobile Phlebotomy [facility] [address] [place] [address] [facility], [facility] Mobile Home Draw [address] [place] [address] 03/27/2024 8:00 AM EST Laboratory Lab Mobile Phlebotomy [facility] [address] [place] [address] [facility], [facility] Mobile Home Draw [address] [place] [address] Scheduled Orders Name Type Priority Associated Diagnoses Orde r Schedule BASIC METABOLIC PANEL Lab Routine Stage 3b chronic kidney disease (HCC) Expected: 05/06/2023 (Approximate), Expires: 05/05/2024 Scheduled Procedures Name Priority Associated Diagnoses Date/Ti [...] 05/30/2022, Additional history exists GFR 10/30/2023 04/29/2023, 03/0 07/2023, 04/17/2023, Additional history exists Mammogram 11/16/2023 11/15/2022, 10/20, 07/03/2021, Additional history exists Albumin/Creatinine Ratio 12/04/2023 023, 02/05/2022, 01/26/2021, Additional history exists CKD HGB USE SMARTSET 27225 03/06/202403/06, 03/06/2023, 12/19/2022, Additional history exists CKD PHOS USE SMARTSET 24830 03/21/2024 02/0 02/2023, 12/19/2022, 11/28/2022, Additional history [...] this encounter Medical Devices Implanted Type Area Rail Flaw Detector Operator Device Identifier Shelf Expiration Date Model / Serial / Lot [place] Suture Biocomposite - Sn/A - [id number] Implanted:Qty: 2 on 12/13/2021 by Moris Jimenez DO at OR [facility] Left: Leg Lower [employer] 07/18/2024 [id number] / N/A / [id number] Vitoss Bbtrauma Foam Pack - [id number] - [id number] Implanted:Qty: 1 on 12/13/2021 by Moris Jimenez DO at OR [facility] Left: Leg Lower MICHA : TRAUMA 01/15/2022 [id number] / [id number] / [id number] documented as of this encounter Visit Diagnoses Diagnosis Stage 3b chronic kidney disease (HCC)- Primary documented in this encounter Advance Directives Latest Code Status on File Code Status Date Activated Date Inactivated Comments Full Code 12/12/2021 7:18 PM 12/20/2021 6:08 PM This order reflects the patients wishes and were consensually agreed upon. Question Answer Comments Discussion of Advance Directives occurred with: Patient Care Teams Home Stereo Equipment Installer Relationship Specialty Start Date End Date Shara Ray MD [address] [place] [address] [place] [address] PCP - General Family Medicine 03/08/23 documented as of this encounter
--- OUTSIDE RECORDS SUMMARY | 2023-07-10 17:11 | External Medical Summary | Summary of Care ---
Author Name Unknown Organization [facility] Address [address] [facility] [place] [address] Phone [phone] Care Team Providers Care Health Care Marketing Specialist Name Role Phone Shara Ray MD Primary Care Provide r Reason for Visit * Reason Onset Date Comments Follow Up 04/26/2023 Encounter Details Date Type Department Care Team (Late st Contact Info) Description 04/26/2023 Telephone [facility], [facility] [address] [place] [address] Valentina Laws RN [address] [place] [address] Follow Up Allergies Active Allergy Reactions Criticality [...] 100 Tablet 0 02/07/2023 4 Active Nystatin 188722 UNIT/ML Mouth/Throat SuspensionIndication s:Thrush Swish and swallow [...] Plan: Rate controlled Continue coumadin Atherosclerosis of [place] co ronary artery without angina pectoris 04/03/2023 [...] IM/IV Chest Xray Additional Comments: Followed by audit associate - Dr. Rashel Sales [facility] [...] in the Comments) Remote Patient Monitoring Vendor: [facility] Device(s): Connected Scale Self - Management Plan [...] & Plan: Symptoms well controlled on omeprazole retirement current use of anticoagulant therapy 0 05/10/2004 Overview: ICD-10 update of inactive term Rheumatic heart disease 03/05/2002 Old myocardial infarct 01/02/2001 Last Assessment & Plan: Continue Crestor 20 mg daily S/P mitral valve replacement Last Assessment & Plan: Chronic AC coumadin Atherosclerosis of [place] co ronary artery of [place] heart without angina pectoris documented as of [...] Overview: Per CKD protocol #1 ORBIT-AF Research Other*[id number] 06/02/2010 04/18/2011 Overview: PROJECT: #[id number], SPONSOR: Aileen, PI: Adolfo De Jesus MD [...] be closed. CONTACT: Roberto Carlos Huertas, Air Conditioning Specialist Type 2 diabetes mellitus wit h [...] MCG/0.3 mL, 12 YRS AND ABOVE, IM ([employer]-Comirnaty) 12/03/2022 COVID-19, mRNA, LNP-s, PF, B ooster, [...] least 72 hrs * Telephone Encounter - Suzie Landeros LPN - 05/06/2023 1:45 PM EDT Spoke with Pt she has weights for this past week and will send via [employer] message Off note Dr Molina discontinued Torsemide [...] original note were not included. Per request- [facility] weights March documented in this encounter Plan of Treatment Upcoming Encounters Date Type Department Care Team (Late st Contact Info) Description 05/07/2023 1:40 PM EDT Office Visit Nephrology [address] [place] [address] Aliyah Lacey MD [address] [place] [address] [place] [address] 05/08/2023 9:10 AM EDT Laboratory Lab Mobile Phlebotomy [facility] [address] [place] [address] [facility] Mobile Home Draw [address] [place] [address] 05/09/2023 6:00 AM EDT Anticoagulation Pharmacy Call Center [address] [place] [address] [facility] [address] [facility] [place] [address] 05/14/2023 4:00 PM EDT [facility] Visit [facility], [place] [address] [place] [address] Valentina Laws RN [address] [place] [address] 05/21/2023 12:30 PM EDT Scheduled Telephone [facility], [facility] [address] [facility] [place] [address] Vee Santacruz RDN [address] [facility] [place] [address] 06/04/2023 1:30 PM EDT Office Visit Allergy/Immunology [facility] 200 [facility] [place] [address] Macario Pathak MD [address] [place] [address] 06/10/2023 12:20 PM EDT Office Visit Family Medicine [address] [phone] Shara Ray MD [address] [place] [address] [place] [address] 06/21/2023 8:00 AM EDT Laboratory Lab Mobile Phlebotomy [facility] [address] [place] [address] [facility] Mobile Home Draw [address] [place] [address] 06/21/2023 2:30 PM EDT Office Visit Cardiology, [facility] [address] [place] [address] Hadley Molina MD [address] [place] [address] 06/24/2023 11:00 AM EDT Office Visit Hematology/Oncology [facility] [place] [address] [place] [phone] Bouchra Del Cid CRNP [address] [place] [address] 08/05/2023 1:00 PM EDT Nurse Only Ancillary [address] [place] [address] [place], Nurse [address] [place] [address] 09/20/2023 8:00 AM EDT Laboratory Lab Mobile Phlebotomy [facility] [address] [place] [address] [facility] Mobile Home Draw [address] [place] [address] 09/24/2023 11:30 AM EDT Office Visit Nephrology, [facility] [address] [facility] [place] [address] ZemaKary velazco PA-C [address] [facility] [place] [address] 12/20/2023 8:00 AM EDT Laboratory Lab Mobile Phlebotomy [facility] [address] [place] [address] [facility] Mobile Home Draw [address] [place], [place] [address] 03/27/2024 8:00 AM EST Laboratory Lab Mobile Phlebotomy [facility] [address] [place] [address] [facility] Mobile Home Draw [address] [place], [place] [address] Scheduled Procedures Name Priority Associated Diagnoses Date/Ti [...] Additional history exists CKD HGB USE SMARTSET 18000 03/06/202403/06, 03/06/2023, 12/19/2022, Additional history exists CKD PHOS USE SMARTSET 09724 03/21/2024 02/0 02/2023, 12/19/2022, 11/28/2022, Additional history [...] this encounter Medical Devices Implanted Type Area Irish Moss Operator Device Identifier Shelf Expiration Date Model / Serial / Lot [place] Suture Biocomposite - Sn/A - [id number] Implanted:Qty: 2 on 12/13/2021 by Moris Jimenez, DO at OR [facility] Left: Leg Lower [employer] 07/18/2024 AR-[id number] / N/A / [id number] Vitoss Bbtrauma Foam Pack - [id number] - [id number] Implanted:Qty: 1 on 12/13/2021 by Moris Jimenez, DO at OR [facility] Left: Leg Lower MICHA : TRAUMA 01/15/2022 / [id number] / [id number] documented as of this encounter Advance Directives Latest Code Status on File Code Status Date Activated Date Inactivated Comments Full Code 12/12/2021 7:18 PM 12/20/2021 6:08 PM This order reflects the patients wishes and were consensually agreed upon. Question Answer Comments Discussion of Advance Directives occurred with: Patient Care Teams Health Care Marketing Specialist Relationship Specialty Start Date End Date Shara Ray MD [address] [place] [address] [place] [phone] PCP - General Family Medicine 03/08/23 documented as of this encounter
--- OUTSIDE RECORDS SUMMARY | 2023-07-10 17:12 | External Medical Summary | Summary of Care ---
Author Name Unknown Organization [facility] Address [address] [facility] [place] [address] Phone [phone] Care Team Providers Care Clinical Consultant Name Role Phone Shara Ray MD Primary Care Provide r Reason for Visit * Reason Onset Date Comments Follow Up 04/26/2023 Encounter Details Date Type Department Care Team (Late st Contact Info) Description 04/26/2023 Telephone [facility], [facility] [address] [place] [address] Valentina Laws RN [address] [place] [address] Follow Up Allergies Active Allergy Reactions Criticality [...] 100 Tablet 0 02/07/2023 4 Active Nystatin 211864 UNIT/ML Mouth/Throat SuspensionIndication s:Thrush Swish and swallow [...] Plan: Rate controlled Continue coumadin Atherosclerosis of [place] co ronary artery without angina pectoris 04/03/2023 [...] IM/IV Chest Xray Additional Comments: Followed by can pusher - Dr. Rashel Sales [facility] Closed nondisplaced fracture of left tibial tuberosity with routine healing 12/12/2021 Mild protein-calorie malnutrition 12/05/2021 Controlled substance agreement signed 12/05/2021 Hematoma of leg, left, subsequent encounter 09/2021 Overview: [facility] ER ulstrasound shows hematoma calf, INR 4.2, [...] the Comments) Remote Patient Monitoring Vendor: [facility] Device(s): Connected Scale Self - [...] & Plan: Chronic AC coumadin Atherosclerosis of [place] co ronary artery of [place] heart without angina pectoris documented as of [...] Overview: Per CKD protocol #1 ORBIT-AF Research Other*[id number] 06/02/2010 04/18/2011 Overview: PROJECT: #[id number], SPONSOR: Aileen, PI: Adolfo De Jesus MD [...] can be closed. CONTACT: Roberto Carlos Huertas, Associate Civil Engineer Type 2 diabetes mellitus wit h [...] MCG/0.3 mL, 12 YRS AND ABOVE, IM ([employer]qina-Comirnaty) 12/03/2022 COVID-19, mRNA, LNP-s, PF, B ooster, [...] encounter Miscellaneous Notes * Telephone Encounter - Valentina Laws RN [...] original note were not included. Per request- [facility] weights March 2022 April 2022July documented in this encounter Plan of Treatment Upcoming Encounters Date Type Department Care Team (Late st Contact Info) Description 05/07/2023 1:40 PM EDT Office Visit Nephrology [address] [place] [address] Aliyah Lacey MD [address] [place] [address] [address] 05/08/2023 9:10 AM EDT Laboratory Lab Mobile Phlebotomy [facility] [address] [place], [place] [id number] Gm, l Mobile Home Draw [address] [place] [address] 05/09/2023 6:00 AM EDT Anticoagulation Pharmacy Call Center [address] [place] [address] [facility], [facility] 58 60 [facility] [place] [address] 05/14/2023 4:00 PM EDT [facility], [facility] 132 [facility] [place] [address] Valentina Laws RN 132 [facility] [place] [address] 05/21/2023 12:30 PM EDT Scheduled Telephone [facility], [facility] [address] [facility] [place] [address] Vee Santacruz RDN [address] [facility] [place] [address] 06/04/2023 1:30 PM EDT Office Visit Allergy/Immunology [facility] [address] [place] [address] Macario Pathak MD [address] [place] [address] 06/10/2023 12:20 PM EDT Office Visit Family Medicine [address] [place] [address] Shara Ray MD [address] [place] [address] [place] [address] 06/21/2023 8:00 AM EDT Laboratory Lab Mobile Phlebotomy [facility] [address] [place], [place] [phone] [facility], [facility] Mobile Home Draw [address] [place], [place] [address] 06/21/2023 2:30 PM EDT Office Visit Cardiology, [facility] [address] [place] [address] Hadley Molina MD [address] [place] [address] 06/24/2023 11:00 AM EDT Office Visit Hematology/Oncology [facility] [place] [address] [place] [phone] Bouchra Del Cid CRNP [address] [place] [address] 08/05/2023 1:00 PM EDT Nurse Only Ancillary [address] [place] [address] [place], Nurse [address] [place] [address] 09/20/2023 8:00 AM EDT Laboratory Lab Mobile Phlebotomy [facility] [address] [place] [address] [facility], [facility] Mobile Home Draw [address] [place] [address] 09/24/2023 11:30 AM EDT Office Visit Nephrology, [facility] [address] [place], [place] [address] ZemaKary velazco PA-C 200 [facility] [place] [address] 12/20/2023 8:00 AM EDT Laboratory Lab Mobile Phlebotomy [facility] [address] [place] [address] [facility], [facility] Mobile Home Draw [address] [place] [address] 03/27/2024 8:00 AM EST Laboratory Lab Mobile Phlebotomy [facility] [address] [place] [address] [facility], [facility] Mobile Home Draw [address] [place] [address] Scheduled Procedures Name Priority Associated Diagnoses Date/Ti [...] 05/30/2022, Additional history exists GFR 10/30/2023 04/29/2023, 0307/2023, 04/17/2023, Additional history exists Mammogram 11/16/2023 11/15/2022, 10/20, 07/03/2021, Additional history exists Albumin/Creatinine Ratio 12/04/2023 023, 02/05/2022, 01/26/2021, Additional history exists CKD HGB USE SMARTSET 99981 03/06/202403/06, 03/06/2023, 12/19/2022, Additional history exists CKD PHOS USE SMARTSET 81363 03/21/2024 02/0 02/2023, 12/19/2022, 11/28/2022, Additional history [...] this encounter Medical Devices Implanted Type Area Leather Production Artisan Device Identifier Shelf Expiration Date Model / Serial / Lot Hammond Suture Biocomposite - Sn/A - [id number] Implanted:Qty: 2 on 12/13/2021 by Moris Jimenez, at [facility] Left: Leg Lower [employer] 07/18/2024 [id number] / N/A / [id number] Vitoss Bbtrauma Foam Pack - [id number] - [id number] Implanted:Qty: 1 on 12/13/2021 by Moris Jimenez, DO at [facility] Left: Leg Lower MICHA : TRAUMA 01/15/2022 [id number] / [id number] / [id number] documented as of this encounter Advance Directives Latest Code Status on File Code Status Date Activated Date Inactivated Comments Full Code 12/12/2021 7:18 PM 12/20/2021 6:08 PM This order reflects the patients wishes and were consensually agreed upon. Question Answer Comments Discussion of Advance Directives occurred with: Patient Care Teams Clinical Consultant Relationship Specialty Start Date End Date Shara Ray MD [address] [place] [address] [place] [address] PCP - General Family Medicine 03/08/23 documented as of this encounter
--- OUTSIDE RECORDS SUMMARY | 2023-07-10 17:12 | External Medical Summary | Summary of Care ---
Author Name Unknown Organization [facility] Address [address] [facility] [place] [address] Phone [phone] Care Team Providers Care Clinical Tech Name Role Phone Shara Ray MD Primary Care Provide r Reason for Visit * Reason Onset Date Comments Follow Up 04/26/2023 Encounter Details Date Type Department Care Team (Late st Contact Info) Description 04/26/2023 Telephone [facility], [facility] [address] [place] [address] Valentina Laws RN [address] [place] [address] Follow Up Allergies Active Allergy Reactions Criticality [...] 100 Tablet 0 02/07/2023 4 Active Nystatin 698608 UNIT/ML Mouth/Throat SuspensionIndication s:Thrush Swish and swallow [...] Plan: Rate controlled Continue coumadin Atherosclerosis of [place] co ronary artery without angina pectoris 04/03/2023 [...] IM/IV Chest Xray Additional Comments: Followed by hardwood floor installer - Dr. 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 CONTACT: Roberto Carlos Huertas, Clerk Rating Type 2 diabetes mellitus wit h hemoglobin [...] MCG/0.3 mL, 12 YRS AND ABOVE, IM ([facility]-Comirnaty) 12/03/2022 COVID-19, mRNA, LNP-s, PF, B ooster, [...] this past week and will send via [employer] message Off note Jesse discontinued Torsemide 100 mg on 04/25/23 but [...] original note were not included. Per request- [facility] weights March documented in this encounter Plan of Treatment Upcoming Encounters Date Type Department Care Team (Late st Contact Info) Description 05/07/2023 1:40 PM EDT Office Visit Nephrology [address] [place] [address] Aliyah Lacey MD [address] [place], [place] [address] [address] 05/08/2023 9:10 AM EDT Laboratory Lab [place] [facility] [address] [place], [place] [phone] [facility] Mobile Home Draw [address] [place] [address] 05/09/2023 6:00 AM EDT [facility]tico[facility] Call [facility] [address] [facility], [facility] 58 60 [facility] [place] [address] 05/14/2023 4:00 PM EDT [facility] Visit [facility], [facility] [place] [address] Valentina Laws, TANISHA [address] [place] [address] 05/21/2023 12:30 PM EDT Scheduled Telephone [facility], [facility] [address] [facility] [place] [address] Vee Santacruz, KOSTAN [address] [facility] [place] [address] 06/04/2023 1:30 PM EDT Office Visit Allergy/Immunology [facility] [place] 200 [facility] [place] [address] Macario Pathak MD 200 [facility] [place] [address] 06/10/2023 12:20 PM EDT Office Visit Family Medicine [address] [phone] Shara Ray MD [address] [place] [address] [place] [address] 06/21/2023 8:00 AM EDT Laboratory Lab Mobile Phlebotomy [facility] [address] [place] [address] [facility] Mobile Home Draw [address] [place] [address] 06/21/2023 2:30 PM EDT Office Visit Cardiology, [facility] 132 [facility] [place] [address] Hadley Molina MD [facility] [address] 06/24/2023 11:00 AM EDT Office Visit Hematology/Oncology [facility] 200 [facility] [place] [phone] Bouchra Del Cid CRNP 400 [facility] [place] [address] 08/05/2023 1:00 PM EDT Nurse Only Ancillary [address] [place] [address] [place], Nurse [address] [place] [address] 09/20/2023 8:00 AM EDT Laboratory Lab Mobile [place] [facility] [address] [place] [address] [facility] Mobile Home Draw [address] [place] [address] 09/24/2023 11:30 AM EDT Office Visit Nephrology, [facility] [address] [place] [address] ZemaitisKary PA-C [address] [place] [address] 12/20/2023 8:00 AM EDT Laboratory Lab Mobile Ph[place] [facility] [address] [place] [address] [facility] Mobile Home Draw [address] [place] [address] 03/27/2024 8:00 AM EST Laboratory Lab Mobile Phlebotomy [facility] [address] [place] [address] [facility] Mobile Home Draw [address] [place] [address] Scheduled Procedures Name Priority Associated Diagnoses Date/Ti [...] 05/30/2022, Additional history exists GFR 10/30/2023 04/29/2023, 07/2023, 04/17/2023, Additional history exists Mammogram 11/16/2023 11/15/2022, 10/20, 07/03/2021, Additional history exists Albumin/Creatinine Ratio 12/04/2023 023, 02/05/2022, 01/26/2021, Additional history exists CKD HGB USE SMARTSET 83370 03/06/202403/06, 03/06/2023, 12/19/2022, Additional history exists CKD PHOS USE SMARTSET 09010 03/21/2024 02/0 02/2023, 12/19/2022, 11/28/2022, Additional history [...] this encounter Medical Devices Implanted Type Area Harpoon Engagement Planning Operator Device Identifier Shelf Expiration Date Model / Serial / Lot [place] Suture Biocomposite - Sn/A - [id number] Implanted:Qty: 2 on 12/13/2021 by Moris Jimenez, DO at [facility] Left: Leg Lower [employer] 07/18/2024 AR-2324BCC / N/A / [id number] Vitoss Bbtrauma Foam Pack - [id number] - [id number] Implanted:Qty: 1 on 12/13/2021 by Moris Jimenez, DO at [facility] Left: Leg Lower MICHA : TRAUMA 01/15/2022 / [id number] / [id number] documented as of this encounter Advance Directives Latest Code Status on File Code Status Date Activated Date Inactivated Comments Full Code 12/12/2021 7:18 PM 12/20/2021 6:08 PM This order reflects the patients wishes and were consensually agreed upon. Question Answer Comments Discussion of Advance Directives occurred with: Patient Care Teams Clinical Tech Relationship Specialty Start Date End Date Shara Ray MD [address] [place] [address] [place] [phone] PCP - General Family Medicine 03/08/23 documented as of this encounter
--- OUTSIDE RECORDS SUMMARY | 2023-07-10 17:12 | External Medical Summary | Summary of Care ---
Author Name Unknown Organization [facility] Address [address] [facility] [place] [address] Phone [phone] Care Team Providers Care Car Top Bolter Name Role Phone Shara Ray MD Primary Care Provide r Reason for Visit * Reason Onset Date Comments Follow Up 04/26/2023 Encounter Details Date Type Department Care Team (Late st Contact Info) Description 04/26/2023 Telephone [facility], [facility] [address] [place] [address] Valentina Laws RN [address] [place] [address] Follow Up Allergies Active Allergy Reactions Criticality [...] 100 Tablet 0 02/07/2023 4 Active Nystatin 957096 UNIT/ML Mouth/Throat SuspensionIndication s:Thrush Swish and swallow [...] Plan: Rate controlled Continue coumadin Atherosclerosis of [place] co ronary artery without angina pectoris 04/03/2023 [...] IM/IV Chest Xray Additional Comments: Followed by boat dock operator - Dr. Rashel Sales [facility] Closed nondisplaced fracture of left tibial tuberosity with routine healing 12/12/2021 Mild protein-calorie malnutrition 12/05/2021 Controlled substance agreement signed 12/05/2021 Hematoma of leg, left, subsequent encounter 09/2021 Overview: [facility] ER ulstrasound shows hematoma [...] in the Comments) Remote Patient Monitoring Vendor: [facility] Device(s): Connected Scale Self - Management Plan [...] & Plan: Chronic AC coumadin Atherosclerosis of [place] co ronary artery of [place] heart without angina pectoris documented as of [...] Overview: Per CKD protocol #1 ORBIT-AF Research Other*[id number] 06/02/2010 04/18/2011 Overview: PROJECT: #[id number], SPONSOR: Aileen, PI: Adolfo De Jesus MD [...] can be closed. CONTACT: Roberto Carlos Huertas, Building Pressure Washer Type 2 diabetes mellitus wit h hemoglobin [...] MCG/0.3 mL, 12 YRS AND ABOVE, IM ([employer]-Comirnaty) 12/03/2022 COVID-19, mRNA, LNP-s, PF, B ooster, [...] original note were not included. Per request- [facility] weights March 2022 April 2022July documented in this encounter Plan of Treatment Upcoming Encounters Date Type Department Care Team (Late st Contact Info) Description 05/07/2023 1:40 PM EDT Office Visit Nephrology [address] [place] [address] Aliyah Lacey MD [address] [address] 05/08/2023 9:10 AM EDT Laboratory Lab Mobile Phlebotomy [facility] [address] [place], [place] [phone] Gm, l Mobile Home Draw [address] [place] [address] 05/09/2023 6:00 AM EDT Anticoagulation Pharmacy Call Center [address] [place] [address] [facility], [facility] 58 60 [facility] [place] [address] 05/14/2023 4:00 PM EDT [facility], [facility] 132 [facility] [place] [address] Valentina Laws RN 132 [facility] [place] [address] 05/21/2023 12:30 PM EDT Scheduled Telephone [facility], [facility] [address] [facility] [place] [address] Vee Santacruz RDN 1000 [address] [facility] [place] [address] 06/04/2023 1:30 PM EDT Office Visit Allergy/Immunology [facility] [address] [place] [address] [address] Macario Pathak MD [address] [place] [address] 06/10/2023 12:20 PM EDT Office Visit Family Medicine [address] [place] [address] Shara Ray MD [address] [place] [address] [place] [address] 06/21/2023 8:00 AM EDT Laboratory Lab Mobile Phlebotomy [facility] [address] [place], [place] [address] [facility] Mobile Home Draw [address] [place], [place] [address] 06/21/2023 2:30 PM EDT Office Visit Cardiology, [facility] [address] [place] [address] Hadley Molina MD [address] [place] [address] 06/24/2023 11:00 AM EDT Office Visit Hematology/Oncology [facility] [place] [address] [place] [phone] Bouchra Del Cid CRNP [address] [place] [address] 08/05/2023 1:00 PM EDT Nurse Only Ancillary [address] [place] [address] [place], Nurse [address] [place] [address] 09/20/2023 8:00 AM EDT Laboratory Lab Mobile Phlebotomy [facility] [address] [place] [address] [facility] Mobile Home Draw [address] [place] [address] 09/24/2023 11:30 AM EDT Office Visit Nephrology, [facility] [address] [place], [place] [address] ZemaKary velazco PA-C 200 [facility] [place] [address] 12/20/2023 8:00 AM EDT Laboratory Lab Mobile Phlebotomy [facility] [address] [place] [address] [facility] Mobile Home Draw [address] [place] [address] 03/27/2024 8:00 AM EST Laboratory Lab Mobile Phlebotomy [facility] [address] [place] [address] [facility] Mobile Home Draw [address] [place] [address] Scheduled Procedures Name Priority Associated Diagnoses Date/Ti [...] Additional history exists CKD HGB USE SMARTSET 92948 03/06/202403/06, 03/06/2023, 12/19/2022, Additional history exists CKD PHOS USE SMARTSET 65082 03/21/2024 02/0 02/2023, 12/19/2022, 11/28/2022, Additional history [...] this encounter Medical Devices Implanted Type Area Tour Coordinator Device Identifier Shelf Expiration Date Model / Serial / Lot [place] Suture Biocomposite - Sn/A - [id number] Implanted:Qty: 2 on 12/13/2021 by Moris Jimenez, at [facility] Left: Leg Lower [employer] 07/18/2024 AR-2324BCC / N/A / [id number] Vitoss Bbtrauma Foam Pack - [id number] - [id number] Implanted:Qty: 1 on 12/13/2021 by Moris Jimenez, DO at OR [facility] Left: Leg Lower MICHA : TRAUMA 01/15/2022 [id number] / [id number] / [id number] documented as of this encounter Advance Directives Latest Code Status on File Code Status Date Activated Date Inactivated Comments Full Code 12/12/2021 7:18 PM 12/20/2021 6:08 PM This order reflects the patients wishes and were consensually agreed upon. Question Answer Comments Discussion of Advance Directives occurred with: Patient Care Teams Car Top Bolter Relationship Specialty Start Date End Date Shara Ray MD [address] [place] [address] [place] [address] PCP - General Family Medicine 03/08/23 documented as of this encounter
--- OUTSIDE RECORDS SUMMARY | 2023-07-10 17:13 | External Medical Summary | Summary of Care ---
Author Name Unknown Organization [facility] Address [address] [facility] [place] [address] Phone [phone] Care Team Providers Care Remote Computer Terminal Operator Name Role Phone Shara Ray MD Primary Care Provide r Reason for Visit * Reason Onset Date Comments Follow Up 04/26/2023 Encounter Details Date Type Department Care Team (Late st Contact Info) Description 04/26/2023 Telephone [facility], [facility] [address] [place] [address] Valentina Laws RN [address] [place] [address] Follow Up Allergies Active Allergy Reactions Criticality [...] 100 Tablet 0 02/07/2023 4 Active Nystatin 908987 UNIT/ML Mouth/Throat SuspensionIndication s:Thrush Swish and swallow [...] Plan: Rate controlled Continue coumadin Atherosclerosis of [place] co ronary artery without angina pectoris 04/03/2023 [...] IM/IV Chest Xray Additional Comments: Followed by calculation reviewer - Dr. Rashel Sales [facility] Closed nondisplaced fracture of left tibial tuberosity with routine healing 12/12/2021 Mild protein-calorie malnutrition 12/05/2021 Controlled substance agreement signed 12/05/2021 Hematoma of leg, left, subsequent encounter 09/2021 Overview: [facility] ER ulstrasound shows hematoma calf, [...] & Plan: Chronic AC coumadin Atherosclerosis of [place] co ronary artery of [place] heart without angina pectoris documented as of [...] Overview: Per CKD protocol #1 ORBIT-AF Research Other*[id number] 06/02/2010 04/18/2011 Overview: PROJECT: #[id number], SPONSOR: Aileen, PI: Adolfo De Jesus MD [...] can be closed. CONTACT: Roberto Carlos Huertas, Dental Officer Type 2 diabetes mellitus wit h [...] MCG/0.3 mL, 12 YRS AND ABOVE, IM ([employer]-Comirnaty) 12/03/2022 COVID-19, mRNA, LNP-s, PF, B ooster, [...] original note were not included. Per request- [facility] weights March documented in this encounter Plan of Treatment Upcoming Encounters Date Type Department Care Team (Late st Contact Info) Description 05/07/2023 1:40 PM EDT Office Visit Nephrology [address] [place] [address] Aliyah Lacey MD [address] [place] [address] 05/08/2023 9:10 AM EDT Laboratory Lab Mobile Phlebotomy [facility] [address] [place] [address] [facility], [facility] Draw [address] [place] [address] 05/09/2023 6:00 AM EDT Anticoagulation Pharmacy Call Center [address] [place] [address] Ccps, [facility] 58 60 [place] [address] 05/14/2023 4:00 PM EDT [facility] Visit [facility], [facility] 132 [place] [address] Valentina Laws, RN 132 [place] [address] 05/21/2023 12:30 PM EDT Scheduled Telephone [facility], [facility] [address] [place] [facility] [place] [address] Vee Santacruz RDN [address] [place] [facility] [address] 06/04/2023 1:30 PM EDT Office Visit Allergy/Immunology [facility] [address] [place] [address] Macario Pathak MD [address] [place] [address] 06/10/2023 12:20 PM EDT Office Visit Family Medicine [address] [place] [phone] Shara Ray MD [address] [place] [address] [place] [address] 06/21/2023 8:00 AM EDT Laboratory Lab Mobile Phlebotomy [facility] [address] [place] [address] [facility], [facility] [address] [place] [address] 06/21/2023 2:30 PM EDT Office Visit Cardiology, [facility] [place] [address] Hadley Molina MD [facility] [place] [address] 06/24/2023 11:00 AM EDT Office Visit Hematology/Oncology [facility] [address] [place] [address] Bouchra Del Cid CRNP [address] [place] [address] 08/05/2023 1:00 PM EDT Nurse Only Ancillary [address] [place] [address] [place], Nurse [address] [place] [address] 09/20/2023 8:00 AM EDT Laboratory Lab Mobile Phlebotomy [facility] [address] [place] [address] [facility], [facility] Draw [address] [place] [address] 09/24/2023 11:30 AM EDT Office Visit Nephrology, [facility] [address] [place] [address] ZeKary bliss PA-C [address] [place] [address] 12/20/2023 8:00 AM EDT Laboratory Lab Mobile Phlebotomy [facility] [address] [place] [address] [facility], [facility] [address] [place] [address] 03/27/2024 8:00 AM EST Laboratory Lab Mobile Phlebotomy [facility] [address] [place] [address] [facility], [facility] [address] [place] [address] Scheduled Procedures Name Priority Associated Diagnoses Date/Ti [...] Additional history exists CKD HGB USE SMARTSET 79707 03/06/202403/06, 03/06/2023, 12/19/2022, Additional history exists CKD PHOS USE SMARTSET 61939 03/21/2024 02/0 02/2023, 12/19/2022, 11/28/2022, Additional history [...] this encounter Medical Devices Implanted Type Area Jig Builder Device Identifier Shelf Expiration Date Model / Serial / Lot [place] Suture Biocomposite - Sn/A - [id number] Implanted:Qty: 2 on 12/13/2021 by Moris Jimenez DO at OR [facility] Left: Leg Lower [employer] 07/18/2024 [id number] / N/A / [id number] Vitoss Bbtrauma Foam Pack - [id number] - [id number] Implanted:Qty: 1 on 12/13/2021 by Moris Jimenez DO at OR [facility] Left: Leg Lower MICHA : TRAUMA 01/15/2022 / [id number] / [id number] documented as of this encounter Advance Directives Latest Code Status on File Code Status Date Activated Date Inactivated Comments Full Code 12/12/2021 7:18 PM 12/20/2021 6:08 PM This order reflects the patients wishes and were consensually agreed upon. Question Answer Comments Discussion of Advance Directives occurred with: Patient Care Teams Remote Computer Terminal Operator Relationship Specialty Start Date End Date Shara Ray MD [address] [place] [address] [place] [address] PCP - General Family Medicine 03/08/23 documented as of this encounter
--- OUTSIDE RECORDS SUMMARY | 2023-07-10 17:13 | External Medical Summary | Summary of Care ---
Author Name Unknown Organization [facility] Address [address] [facility] [place] [address] Phone [phone] Care Team Providers Care Vice President Of Marketing Name Role Phone Shara Ray MD Primary Care Provide r Reason for Visit * Reason Onset Date Comments Nutritional Services Documentation 04/29/2023 Encounter Details Date Type Department Care Team (Late st Contact Info) Description 04/29/2023 Telephone [facility], [facility] [address] [facility] [place] [address] Vee Santacruz RDN [address] [facility] [place] [address] Nutritional Services Documentation Allergies Active Allergy Reactions Criticality Noted Date [...] 100 Tablet 0 02/07/2023 4 Active Nystatin 573703 UNIT/ML Mouth/Throat SuspensionIndication s:Thrush Swish and swallow [...] Plan: Rate controlled Continue coumadin Atherosclerosis of [place] co ronary artery without angina pectoris 04/03/2023 [...] IM/IV Chest Xray Additional Comments: Followed by etch operator semiconductor wafers - Dr. Rashel Sales [facility] [...] in the Comments) Remote Patient Monitoring Vendor: [facility] Device(s): Connected Scale [...] & Plan: Chronic AC coumadin Atherosclerosis of [place] co ronary artery of [place] heart without angina pectoris documented as of [...] Overview: Per CKD protocol #1 ORBIT-AF Research Other*[id number] 06/02/2010 04/18/2011 Overview: PROJECT: #[id number], SPONSOR: Aileen, PI: Adolfo De Jesus MD [...] can be closed. CONTACT: Roberto Carlos Huertas, Core Stacker Type 2 diabetes mellitus wit h hemoglobin [...] MCG/0.3 mL, 12 YRS AND ABOVE, IM ([employer]-Comirnaty) 12/03/2022 COVID-19, mRNA, LNP-s, PF, B ooster, [...] Encounter - Aliyah Lacey MD - 05/06/2023 1:26 PM EDT Thanks for reaching out and apologies for delay have been out of [facility] Not sure who put that order in but agree w/ you that for where she is on the renal dz spectrum the focus would be sodium and fluid intake limits; no indication at this time to do low K or phos * Telephone Encounter - Vee Santacruz RDN - 04/29/2023 9:[address] Lacey, I am a Registered Dietitian who works for [employer]. Abdi was recently referred to me for a "renal diet". Patient asking questions on potassium and phosphorus restrictions. Reports she has been and continues to follow low sodium diet and 2 liter fluid restriction. Reviewing her recent labs, her potassium and phosphorus have been WNL. I wanted to discuss with you first prior to providing patient with dietary instructions on restricting her diet in potassium and phosphorus. Thank you, Vee Santacruz, RIAZ, RDN, LDN Clinical Dietitian [facility] documented in this encounter Plan of Treatment Upcoming Encounters Date Type Department Care Team (Late st Contact Info) Description 05/07/2023 1:40 PM EDT Office Visit Nephrology [address] [place] [address] Aliyah Lacey MD [address] [place] [address] 05/08/2023 9:10 AM EDT Laboratory Lab Mobile Phlebotomy [facility] [address] [place] [address] Gm, [facility] Mobile Home Draw [address] [place] [address] 05/09/2023 6:00 AM EDT Anticoagulation Pharmacy Call Center [address] [place] [address] [facility], [facility] 58 60 [facility] [place] [address] 05/14/2023 4:00 PM EDT Home Visit [facility], [facility] 132 [facility] [place] [address] Valentina Laws, TANISHA 132 [facility] [place] [address] 05/21/2023 12:30 PM EDT Scheduled Telephone [facility], [facility] [address] [facility] [place] [address] Vee Santacruz RDN [address] [facility] [place] [address] 06/04/2023 1:30 PM EDT Office Visit Allergy/Immunology [facility] [address] [place] [address] Macario Pathak MD [address] [place] [address] 06/10/2023 12:20 PM EDT Office Visit Family Medicine [address] [place] [phone] Shara Ray MD [address] [place] [address] [place] [address] 06/21/2023 8:00 AM EDT Laboratory Lab Mobile Phlebotomy [facility] [address] [place], [place] [address] [facility] Home Draw [address] [place], [place] [address] 06/21/2023 2:30 PM EDT Office Visit Cardiology, [facility] [place] [address] Hadley Molina MD [address] [place] [address] 06/24/2023 11:00 AM EDT Office Visit Hematology/Oncology [facility] [address] [place] [phone] Bouchra Del Cid CRNP [address] [place] [address] 08/05/2023 1:00 PM EDT Nurse Only Ancillary [address] [place] [address] [place], Nurse [address] [place] [address] 09/20/2023 8:00 AM EDT Laboratory Lab Mobile Phlebotomy [facility] [address] [place], [place] [address] [facility], [facility] Mobile Home Draw [address] [place] [address] 09/24/2023 11:30 AM EDT Office Visit Nephrology, [facility] [address] [place], [place] [address] ZemaitisKary PA-C 200 [facility] [place] [address] 12/20/2023 8:00 AM EDT Laboratory Lab Mobile Phlebotomy [facility] [address] [place] [address] Gm, [facility] Mobile Home Draw [address] [place] [address] 03/27/2024 8:00 AM EST Laboratory Lab Mobile Phlebotomy [facility] [address] [place] [address] [facility], [facility] Draw [address] [place] [address] Scheduled Procedures Name Priority Associated Diagnoses Date/Ti [...] Additional history exists CKD HGB USE SMARTSET 38563 03/06/202403/06, 03/06/2023, 12/19/2022, Additional history exists CKD PHOS USE SMARTSET 80640 03/21/2024 02/0 02/2023, 12/19/2022, 11/28/2022, Additional history [...] this encounter Medical Devices Implanted Type Area Live Truck Operator Device Identifier Shelf Expiration Date Model / Serial / Lot [place] Suture Biocomposite - Sn/A - [id number] Implanted:Qty: 2 on 12/13/2021 by Moris Jimenez, at OR [facility] Left: Leg Lower [employer] 07/18/2024 AR-2324BCC / N/A / [id number] Vitoss Bbtrauma Foam Pack - [id number] - [id number] Implanted:Qty: 1 on 12/13/2021 by Moris Jimenez, DO at OR [facility] Left: Leg Lower MICHA : TRAUMA 01/15/2022 [id number] / [id number] / [id number] documented as of this encounter Advance Directives Latest Code Status on File Code Status Date Activated Date Inactivated Comments Full Code 12/12/2021 7:18 PM 12/20/2021 6:08 PM This order reflects the patients wishes and were consensually agreed upon. Question Answer Comments Discussion of Advance Directives occurred with: Patient Care Teams Vice President Of Marketing Relationship Specialty Start Date End Date Shara Ray MD [address] [place] [address] [place] [address] PCP - General Family Medicine 03/08/23 documented as of this encounter
--- OUTSIDE RECORDS SUMMARY | 2023-07-10 17:14 | External Medical Summary | Summary of Care ---
Author Name Unknown Organization [facility] Address [address] [facility] [place] [address] Phone [phone] Care Team Providers Care Production Or Plant Engineer Name Role Phone Shara Ray MD Primary Care Provide r Reason for Visit * Reason Onset Date Comments Advice 05/02/2023 Encounter Details Date Type Department Care Team (Late st Contact Info) Description 05/02/2023 Telephone Cardiology, [facility] [address] [place] [address] Hal Ding MD [address] [place] [address] Advice Allergies Active Allergy Reactions Criticality Noted Date [...] as of this encounter (statuses as of 05/02/2023) Medications Medication Sig Dispensed Refills Start Date [...] 100 Tablet 0 02/07/2023 4 Active Nystatin 224036 UNIT/ML Mouth/Throat SuspensionIndication s:Thrush Swish and swallow [...] as of this encounter (statuses as of 05/02/2023) Active Problems Problem Noted Date Diagnosed Date Major depressive disorder, recurrent, moderate 0 04/03/2023 Last Assessment & Plan: Mood stable on current dose celexa Other persistent atrial fibrillation 04/03/2023 Last Assessment & Plan: Rate controlled Continue coumadin Atherosclerosis of [place] co ronary artery without angina pectoris 04/03/2023 [...] IM/IV Chest Xray Additional Comments: Followed by master electrician - Dr. Rashel Sales [facility] Closed nondisplaced fracture of left tibial tuberosity with routine healing 12/12/2021 Mild protein-calorie malnutrition 12/05/2021 Controlled substance agreement signed 12/05/2021 Hematoma of leg, left, subsequent encounter 09/2021 Overview: [facility] ER ulstrasound shows hematoma calf, INR [...] in the Comments) Remote Patient Monitoring Vendor: [facility] Device(s): Connected Scale Self - Management Plan [...] Plan: Symptoms well controlled on omeprazole extermination inspector current use of anticoagulant therapy 0 05/10/2004 Overview: ICD-10 update of inactive term Rheumatic heart disease 03/05/2002 Old myocardial infarct 01/02/2001 Last Assessment & Plan: Continue Crestor 20 mg daily S/P mitral valve replacement Last Assessment & Plan: Chronic AC coumadin Atherosclerosis of [place] co ronary artery of [place] heart without angina pectoris documented as of this encounter (statuses as of 05/02/2023) Resolved Problems Problem Noted Date Diagnosed Date [...] Overview: Per CKD protocol #1 ORBIT-AF Research Other*[id number] 06/02/2010 04/18/2011 Overview: PROJECT: #[id number], SPONSOR: [employer], PI: Adolfo De Jesus MD [...] can be closed. CONTACT: Roberto Carlos Huertas, Insect Control Inspector Type 2 diabetes mellitus wit h hemoglobin A1c goal of less than 7.0% 04/24/2010 08/29/2018 Overview: ICD-10 update of inactive term ACTIVE CASE MANAGEMENT Kassie Anthony RN [id number] 05/10/19 10 12/05/2009 ADVANCE DIRECTIVE INFORMATION 05/09/2009 [...] as of this encounter (statuses as of 05/02/2023) Immunizations Name Administration Dates Next Due COVID-19 [...] encounter Miscellaneous Notes * Addendum Note - Hal Ding MD - 05/02/2023 3:10 PM EDTAddended by: HAL DING on: 05/02/2023 03:10 PM Modules accepted: Orders * Addendum Note - Pelon Kunz LPN - 05/02/2023 1:41 PM EDTAddended by: PELON KUNZ on: 05/02/2023 01:41 PM Modules accepted: Orders * Telephone Encounter - Pelon Kunz LPN - 05/02/2023 1:35 PM EDT Spoke with patient by phone, gave information in this encounter. Verbalized understanding Agreed to plan of care. Pt is asking for new torsemide prescription sent to mail order pharmacy. Pended BMP pended. She will have completed on Saturday * Telephone Encounter - Hal Ding MD - 05/02/2023 11:01 AM EDT Renal function improved on laboratory studies of 04/28. Resume torsemide at 50 mg p.o. q.day Continue to follow weights BMP next week * Telephone Encounter - Wing Mahmood RN - 05/02/2023 9:48 AM EDT Patient's cousin Moris who I her critical care rn called and stated the patient has gained 4 lbs in thelast 4 days. He stated her output is greater than the intake but still with holding fluid. He stated Dr. Ding told them to call when she has a weight gain. * Telephone Encounter - Deanna Mccollum OSA - 05/02/2023 9:43 AM EDT Person calling: Moris Relationship to patient: Cousin and caregiver Number to return call: [phone] Reason for call: Moris requesting to speak with nurse. Moris reports that patient is retaining fluid and has gained 3 pounds in the last 3 days. Pharmacy: n/a Provider Name: Dr. Ding documented in this encounter Plan of Treatment Upcoming Encounters Date Type Department Care Team (Late st Contact Info) Description 05/07/2023 1:40 PM EDT Office Visit Nephrology [address] [place] [address] Aliyah Lacey MD [address] [place] [address] [place] [address] 05/08/2023 9:10 AM EDT Laboratory Lab Mobile Phlebotomy [facility] [address] [place] [address] [facility] Home Draw [address] [place] [address] 05/09/2023 6:00 AM EDT Anticoagulation Pharmacy Call Center [address] [place] [address] Ccps, [facility] 58 60 [facility] [place] [address] 05/14/2023 4:00 PM EDT [facility], [facility] 132 [facility] [place] [address] Valentina Laws RN [address] [facility] [place] [address] 05/21/2023 12:30 PM EDT Scheduled Telephone [facility], [facility] [address] [facility] [place] [address] Vee Santacruz RDN 1000 [place] [facility] [place] [address] 06/04/2023 1:30 PM EDT Office Visit Allergy/Immunology [facility] 200 [facility] [place] [address] Macario Pathak MD 200 [facility] [place] [address] 06/10/2023 12:20 PM EDT Office Visit Family Medicine [address] [place] [phone] Shara Ray MD [address] [place] [address] [place] [address] 06/21/2023 8:00 AM EDT Laboratory Lab Mobile Phlebotomy [facility] [address] [place] [address] [facility] Draw [address] [place] [address] 06/21/2023 2:30 PM EDT Office Visit Cardiology, [facility] [address] [place] [address] Hal Ding MD 132 [place] [address] 06/24/2023 11:00 AM EDT Office Visit Hematology/Oncology [facility] [address] [facility] [address] [place] [address] Bouchra Del Cid CRNP 400 [facility] [place] [address] 08/05/2023 1:00 PM EDT Nurse Only Ancillary [address] [place] [address] [place], Nurse [address] [place] [address] 09/20/2023 8:00 AM EDT Laboratory Lab Mobile Phlebotomy [facility] [address] [place] [address] [facility] Draw [address] [place] [address] 09/24/2023 11:30 AM EDT [facility] 200 [facility] [place] [address] ZeKary bliss PA-C 200 [facility] [place] [address] 12/20/2023 8:00 AM EDT Laboratory Lab Mobile Phlebotomy [facility] [address] [place] [address] [facility] Draw [address] [place] [address] 03/27/2024 8:00 AM EST Laboratory Lab Mobile Phlebotomy [facility] [address] [place] [address] [facility] Draw [address] [place] [address] Scheduled Orders Name Type Priority Associated Diagnoses Orde r Schedule BASIC METABOLIC PANEL Lab Routine Acute on chronic right-sided heart failure (HCC) S/P mitral valve replacement Permanent atrial fibrillation (HCC) Expected: 05/08/2023 (Approximate), Expires: 05/01/2024 Scheduled Procedures Name Priority Associated Diagnoses Date/Ti [...] Additional history exists CKD HGB USE SMARTSET 06022 03/06/202403/06, 03/06/2023, 12/19/2022, Additional history exists CKD PHOS USE SMARTSET 00738 03/21/2024 02/0 02/2023, 12/19/2022, 11/28/2022, Additional history [...] this encounter Medical Devices Implanted Type Area Electric Meter Installer Helper Device Identifier Shelf Expiration Date Model / Serial / Lot [place] Suture Biocomposite - Sn/A - [id number] Implanted:Qty: 2 on 12/13/2021 by Moris Jimenez, DO at OR [facility] Left: Leg Lower [employer] 07/18/2024 AR-[id number] / N/A / [id number] Vitoss Bbtrauma Foam Pack - [id number] - [id number] Implanted:Qty: 1 on 12/13/2021 by Moris Jimenez, DO at OR [facility] Left: Leg Lower MICHA : TRAUMA 01/15/2022 / [id number] / [id number] documented as of this encounter Visit Diagnoses Diagnosis Acute on chronic right-sided heart failure (HCC)- Primary S/P mitral valve replacement Heart valve replaced [...] Advance Directives occurred with: Patient Care Teams Production Or Plant Engineer Relationship Specialty Start Date End Date Shara Ray MD [address] [place] [address] [place] [address] PCP - General Family Medicine 03/08/23 documented as of this encounter
--- OUTSIDE RECORDS SUMMARY | 2023-07-10 17:15 | External Medical Summary | Summary of Care ---
Author Name Unknown Organization [facility] Address [address] [facility] [place] [address] Phone [phone] Care Team Providers Care Road Grader Name Role Phone Shara Ray MD Primary Care Provide r Reason for Visit * Reason Onset Date Comments Advice 05/02/2023 Encounter Details Date Type Department Care Team (Late st Contact Info) Description 05/02/2023 Telephone Cardiology, [facility] [address] [place] [address] Hadley Molina MD [address] [place] [address] Advice Allergies Active Allergy Reactions Criticality Noted [...] 100 Tablet 0 02/07/2023 4 Active Nystatin 778892 UNIT/ML Mouth/Throat SuspensionIndication s:Thrush Swish and swallow [...] IM/IV Chest Xray Additional Comments: Followed by direct sales consultant - Dr. Rashel Sales [facility] Closed nondisplaced fracture of left tibial tuberosity with routine healing 12/12/2021 Mild protein-calorie malnutrition 12/05/2021 Controlled substance agreement signed 12/05/2021 Hematoma of leg, left, subsequent encounter 09/2021 Overview: [facility] ER ulstrasound shows hematoma calf, INR [...] Overview: Per CKD protocol #1 ORBIT-AF Research Other*[id number] 06/02/2010 04/18/2011 Overview: PROJECT: #[id number], SPONSOR: Aileen, PI: Adolfo De Jesus MD [...] can be closed. CONTACT: Roberto Carlos Huertas, Radiologic Electronic Specialist Type 2 diabetes mellitus wit h hemoglobin A1c goal of less than 7.0% 04/24/2010 08/29/2018 Overview: ICD-10 update of inactive term ACTIVE CASE MANAGEMENT Kassie Anthony RN [phone] 05/10/19 10 12/05/2009 ADVANCE DIRECTIVE INFORMATION 05/09/2009 [...] encounter Miscellaneous Notes * Addendum Note - Pelon Kunz LPN [...] completed on Saturday * Telephone Encounter - Hadley Molina MD - 05/02/2023 11:01 AM EDT Renal function improved on laboratory studies of 04/28. Resume torsemide at 50 mg p.o. q.day Continue to follow weights BMP next week * Telephone Encounter - Wing Mahmood RN - 05/02/2023 9:48 AM EDT Patient's cousin Moris who I her critical care educator called and stated the patient has gained 4 lbs in thelast 4 days. He stated her output is greater than the intake but still with holding fluid. He stated Dr. Molina told them to call when she has a weight gain. * Telephone Encounter - Deanna Mccollum OSA - 05/02/2023 9:43 AM EDT Person calling: Moris Relationship to patient: Cousin and caregiver Number to return call: [phone] Reason for call: Moris requesting to speak with nurse. Moris reports that patient is retaining fluid and has gained 3 pounds in the last 3 days. Pharmacy: n/a Provider Name: Dr. Molina documented in this encounter Plan of Treatment Upcoming Encounters Date Type Department Care Team (Late st Contact Info) Description 05/07/2023 1:40 PM EDT Office Visit Nephrology [address] [place] [address] Aliyah Lacey MD 200 [facility] [place] [address] 05/08/2023 9:10 AM EDT Laboratory Lab Mobile [facility]bot[facility] [address] [place] [address] [facility] Mobile Home Draw [address] [place] [address] 05/09/2023 6:00 AM EDT Anticoagulation Pharmacy Call Center WB [address] [place] [address] [facility] 58 60 [facility] [place] [address] 05/14/2023 4:00 PM EDT [facility] [place] [facility] [address] [place] [address] Valentina Laws RN [address] [place] [address] 05/21/2023 12:30 PM EDT Scheduled Telephone [facility], [facility] [address] [facility] [place] [address] Vee Santacruz RDN 1000 [facility] [place] [address] 06/04/2023 1:30 PM EDT Office Visit Allergy/Immunology [facility] 200 [facility] [place] [address] Macario Pathak MD 200 [facility] [place] [address] 06/10/2023 12:20 PM EDT Office Visit Family Medicine [address] [phone] Shara Ray MD [address] [place] [address] [place] [address] 06/21/2023 8:00 AM EDT Laboratory Lab Mobile Phlebotomy [facility] [address] [place] [address] [facility] Mobile Home Draw [address] [place] [address] 06/21/2023 2:30 PM EDT Office Visit Cardiology, [facility] [address] [place] [address] Hadley Molina MD 132 [place] [address] 06/24/2023 11:00 AM EDT Office Visit Hematology/Oncology [facility] 200 [facility] [place] [address] Bouchra Del Cid CRNP 400 [facility] [place] [address] 08/05/2023 1:00 PM EDT Nurse Only Ancillary [address] [place] [address] [place], Nurse [address] [place] [address] 09/20/2023 8:00 AM EDT Laboratory Lab Mobile Phlebotomy [facility] [address] [place] [address] [facility], [facility] Mobile Home Draw [address] [place] [address] 09/24/2023 11:30 AM EDT Office Visit Nephrology, [facility] 200 [facility] [place] [address] ZemaitisKary PA-C 200 [facility] [place] [address] 12/20/2023 8:00 AM EDT Laboratory Lab Mobile Phlebotomy [facility] [address] [place] [address] [facility] Mobile Home Draw [address] [place] [address] 03/27/2024 8:00 AM EST Laboratory Lab Mobile Phlebotomy [facility] [address] [place], [place] [id number] [facility], [facility] Mobile Home Draw [address] [place], [place] [phone] Scheduled Procedures Name Priority Associated Diagnoses Date/Ti [...] Additional history exists CKD HGB USE SMARTSET 57112 03/06/202403/06, 03/06/2023, 12/19/2022, Additional history exists CKD PHOS USE SMARTSET 96834 03/21/2024 02/0 02/2023, 12/19/2022, 11/28/2022, Additional history [...] this encounter Medical Devices Implanted Type Area Coding Specialist Device Identifier Shelf Expiration Date Model / Serial / Lot Arthur Suture Biocomposite - Sn/A - [id number] Implanted:Qty: 2 on 12/13/2021 by Moris Jimenez, DO at OR [facility] Left: Leg Lower [employer] 07/18/2024 [id number] / N/A / [id number] Vitoss Bbtrauma Foam Pack - [id number] - [id number] Implanted:Qty: 1 on 12/13/2021 by Moris Jimenez, DO at OR [facility] Left: Leg Lower MICHA : TRAUMA 01/15/2022 / [id number] / [id number] documented as of this encounter Visit Diagnoses [...] Advance Directives occurred with: Patient Care Teams Road Grader Relationship Specialty Start Date End Date Shara Ray MD [address] [place] [address] [place] [phone] PCP - General Family Medicine 03/08/23 documented as of this encounter
--- OUTSIDE RECORDS SUMMARY | 2023-07-10 17:16 | External Medical Summary | Summary of Care ---
Author Name Unknown Organization [facility] Address [address] [facility] [place] [address] Phone [phone] Care Team Providers Care Recreational Leader Name Role Phone Shara Ray MD Primary Care Provide r Reason for Visit * Reason Onset Date Comments Advice 05/02/2023 Encounter Details Date Type Department Care Team (Late st Contact Info) Description 05/02/2023 Telephone Cardiology, [facility] [address] [place] [address] Hadley Molina MD [address] [place] [address] Advice Allergies Active Allergy Reactions Criticality Noted [...] 100 Tablet 0 02/07/2023 4 Active Nystatin 477007 UNIT/ML Mouth/Throat SuspensionIndication s:Thrush Swish and swallow [...] IM/IV Chest Xray Additional Comments: Followed by senior director insight - Dr. Rashel Sales [facility] Closed nondisplaced fracture of left tibial tuberosity with routine healing 12/12/2021 Mild protein-calorie malnutrition 12/05/2021 Controlled substance agreement signed 12/05/2021 Hematoma of leg, left, subsequent encounter 09/2021 Overview: [facility] ER ulstrasound shows hematoma calf, [...] in the Comments) Remote Patient Monitoring Vendor: [facility] Device(s): Connected Scale Self - Management Plan [...] Overview: Per CKD protocol #1 ORBIT-AF Research Other*[id number] 06/02/2010 04/18/2011 Overview: PROJECT: #[id number], SPONSOR: Aileen, PI: Adolfo De Jesus MD [...] can be closed. CONTACT: Roberto Carlos Huertas, Automotive Services Manager Type 2 diabetes mellitus wit h hemoglobin A1c goal of less than 7.0% 04/24/2010 08/29/2018 Overview: ICD-10 update of inactive term ACTIVE CASE MANAGEMENT Kassie Anthony RN [phone] 05/10/19 10 12/05/2009 ADVANCE DIRECTIVE INFORMATION 05/09/2009 [...] EDT Patient's cousin Moris who I her direct support professional caregiver called and stated the patient has gained [...] Cousin and caregiver Number to return call: [phone] Reason for call: Moris requesting to speak with nurse. Moris reports that patient is retaining fluid and has gained 3 pounds in the last 3 days. Pharmacy: n/a Provider Name: Dr. Molina documented in this encounter Plan of Treatment Upcoming Encounters Date Type Department Care Team (Late st Contact Info) Description 05/07/2023 1:40 PM EDT Office Visit Nephrology [address] [place] [address] Aliyah Lacey MD 200 [facility] [place] [address] 05/14/2023 4:00 PM EDT [facility] 132 [facility] [address] Valentina Laws, TANISHA 132 [facility] [place] [address] 05/21/2023 12:30 PM EDT Scheduled Telephone [facility], [facility] 1000 [address] [facility] [place] [address] Vee Santacruz RDN 1000 [place] [facility] [place] [address] 06/04/2023 1:30 PM EDT Office Visit Allergy[facility]Immun[facility] [employer] [facility] [address] Macario Pathak MD 200 [facility] [address] 06/10/2023 12:20 PM EDT Office Visit Family Medicine [address] [place] [phone] Shara Ray MD [address] [place] [address] [place] [address] 06/21/2023 8:00 AM EDT Laboratory Lab Mobile Phlebotomy [facility] 100 [facility] [place] [phone] [facility] Mobile Home Draw [address] [place] [address] 06/21/2023 2:30 PM EDT Office Visit Cardiology, [facility] [address] [place] [address] Hadley Molina MD [address] [place] [address] 06/24/2023 11:00 AM EDT Office Visit Hematology/Oncology [facility] 200 [facility] [place] [address] Bouchra Del Cid CRNP [address] [place] [address] [place] [address] 08/05/2023 1:00 PM EDT Nurse Only Ancillary [address] [place] [address] [place], Nurse [address] [place] [address] 09/20/2023 8:00 AM EDT Laboratory Lab Mobile Phlebotomy [facility] [address] [place] [address] [facility] Mobile Home Draw [address] [place] [address] 09/24/2023 11:30 AM EDT Office Visit Nephrology, [facility] 200 [facility] [place] [address] Kary Pena PA-C 200 [facility] [place] [address] 12/20/2023 8:00 AM EDT Laboratory Lab Mobile Phlebotomy [facility] [address] [place] [address] [facility] Mobile Home Draw [address] [place] [address] 03/27/2024 8:00 AM EST Laboratory Lab Mobile Phlebotomy [facility] [address] [place] [address] [facility] Mobile Home Draw [address] [place] [address] Scheduled Procedures Name Priority Associated Diagnoses Date/Ti [...] Additional history exists CKD HGB USE SMARTSET 27356 03/06/202403/06, 03/06/2023, 12/19/2022, Additional history exists CKD PHOS USE SMARTSET 63343 03/21/2024 02/0 02/2023, 12/19/2022, 11/28/2022, Additional history [...] this encounter Medical Devices Implanted Type Area Screen Cutter And Trimmer Device Identifier Shelf Expiration Date Model / Serial / Lot [place] Suture Biocomposite - Sn/A - [id number] Implanted:Qty: 2 on 12/13/2021 by Moris Jimenez DO at OR [facility] Left: Leg Lower [employer] 07/18/2024 [id number] / N/A / [id number] Vitoss Bbtrauma Foam Pack - [id number] - [id number] Implanted:Qty: 1 on 12/13/2021 by Moris Jimenez DO at OR [facility] Left: Leg Lower MICHA : TRAUMA 01/15/2022 / [id number] / [id number] documented as of this encounter Advance Directives Latest Code Status on File Code Status Date Activated Date Inactivated Comments Full Code 12/12/2021 7:18 PM 12/20/2021 6:08 PM This order reflects the patients wishes and were consensually agreed upon. Question Answer Comments Discussion of Advance Directives occurred with: Patient Care Teams Recreational Leader Relationship Specialty Start Date End Date Shara Ray MD [address] [place] [address] [place] [address] PCP - General Family Medicine 03/08/23 documented as of this encounter
--- OUTSIDE RECORDS SUMMARY | 2023-07-10 17:16 | External Medical Summary | Summary of Care ---
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 CONTACT: Roberto Carlos uHertas, Medical Lab Tech Instructor Type 2 diabetes mellitus wit h hemoglobin [...] as of this encounter Progress Notes * Vibha Forrester PHARM Tech - 05/02/2023 11:06 AM EDT Contacts Type Contact Phone/Fax 05/02/2023 11:04 AM EDT Phone (Outgoing) Abdi Bowling (Self) [phone] (M) Subjective Patient Findings Negatives: Signs/symptoms of bleeding, Change in health, Change in activity, Upcoming invasive procedure, Missed doses, Extra doses, Change in medications, Change in diet/appetite, Bruising Advised patient to contact Anticoagulation Clinic if any unusual bruising or bleeding, recent illness, changes in medication, or questions/concerns. PT/INR results, Coumadin dose instructions, and next PT/INR date communicated as noted by Pharmacist: Yes GOGRE RODRIGUEZ 05/02/2023, 11:06 AM * Kirby Gates, [facility] - 05/02/2023 9:59 AM EDT Images from the original note were not included. Coumadin Clinic (region specific) Objective Current Warfarin Dose As of 05/02/2023 Warfarin maintenance plan: 5 mg (2.5 mg x 2) every Tue, Fri; 3.75 mg (2.5 mg x 1.5) all other days INR Result As of 05/02/2023 INR goal: 3.0-3.5 INR used for dosin.8 (05/01/2023) Assessment & Plan Warfarin Plan As of 05/02/2023 Full warfarin instructions: 05/01: 5 mg; Otherwise 5 mg every Tue, Sat; 3.75 mg all other days Next INR check: 05/08/2023 I sent myG Repeat PT/INR in 1 week(s) Weekly dose: not changed - changed days for 5mg dose Additional Dosing Information: Description GM WedFri, prefers Wed ([facility], [facility], or [facility]) Please also send myG Tech to contact patient with dose instructions as noted. Kirby Gates RPh 05/02/2023, 9:59 AM documented in this encounter Plan of Treatment Upcoming Encounters Date Type Department Care Team (Late st Contact Info) Description 05/07/2023 1:40 PM EDT Office Visit Nephrology [address] [place] [address] Aliyah Lacey MD [address] [place], [place] [address] [address] 05/09/2023 6:00 AM EDT Anticoagulation Pharmacy Call Center 58-60 [facility] [place] [address] [facility] 58 60 [facility] [place] [address] 05/14/2023 4:00 PM EDT [facility] [place], [facility] 132 [place] [address] Valentina Laws, RN [address] [place] [address] 05/21/2023 12:30 PM EDT Scheduled Telephone [facility] [address] [facility] [place] [address] Vee Santacruz, KOSTAN [address] [facility] [place] [address] 06/04/2023 1:30 PM EDT Office Visit Allergy/Immunology [facility] 200 [facility] [place] [address] Macario Pathak MD 200 [facility] [place] [address] 06/10/2023 12:20 PM EDT Office Visit Family Medicine [address] [phone] Shara Ray MD [address] [place] [address] [place] [address] 06/21/2023 8:00 AM EDT Laboratory Lab Mobile Phlebotomy [facility] [address] [place] [address] [facility] Mobile Home Draw [address] [place] [address] 06/21/2023 2:30 PM EDT Office Visit Cardiology, [facility] 132 [place] [address] Hadley Molina MD [facility] [address] 06/24/2023 11:00 AM EDT Office Visit Hematology/Oncology [facility] 200 [facility] [place] [phone] Bouchra Del Cid CRNP 400 [facility] [place] [address] 08/05/2023 1:00 PM EDT Nurse Only Ancillary [address] [place] [address] [place], Nurse [address] [place] [address] 09/20/2023 8:00 AM EDT Laboratory Lab Mobile Phlebotomy [facility] [address] [place] [address] [facility], [facility] Mobile Home Draw [address] [place] [address] 09/24/2023 11:30 AM EDT Office Visit Nephrology, [place] [address] [place] [address] ZemaitisKary PA-C [address] [place] [address] 12/20/2023 8:00 AM EDT Laboratory Lab Mobile Phlebotomy [facility] [address] [place] [address] [facility] Mobile Home Draw [address] [place] [address] 03/27/2024 8:00 AM EST Laboratory Lab Mobile Phlebotomy [facility] [address] [place], [place] [address] [facility], [facility] Mobile Home Draw [address] [place], [place] [address] Scheduled Procedures Name Priority Associated Diagnoses Date/Ti [...] Additional history exists CKD HGB USE SMARTSET 05287 03/06/202403/06, 03/06/2023, 12/19/2022, Additional history exists CKD PHOS USE SMARTSET 89950 03/21/2024 02/0 02/2023, 12/19/2022, 11/28/2022, Additional history [...] this encounter Medical Devices Implanted Type Area Mine Expert Device Identifier Shelf Expiration Date Model / Serial / Lot [place] Suture Biocomposite - Sn/A - [id number] Implanted:Qty: 2 on 12/13/2021 by Moris Jimenez, DO at OR [facility] Left: Leg Lower [employer] 07/18/2024 AR-[id number] / N/A / [id number] Vitoss Bbtrauma Foam Pack - [id number] - [id number] Implanted:Qty: 1 on 12/13/2021 by Moris Jimenez, DO at OR [facility] Left: Leg Lower MICHA : TRAUMA 01/15/2022 / [id number] / [id number] documented as of this encounter Visit Diagnoses Diagnosis [facility] current use of anticoagulant therapy- Primary History [...] Advance Directives occurred with: Patient Care Teams Foreign Exchange Clerk Relationship Specialty Start Date End Date Shara Ray MD [address] [place] [address] [place] [address] PCP - General Family Medicine 03/08/23 documented as of this encounter
--- OUTSIDE RECORDS SUMMARY | 2023-07-10 17:17 | External Medical Summary ---
Author Name Unknown Address Unknown Organization K01:[facility] [place] [address] [place] [address] Laboratory Report Ordering Provider Test Date Status SONIA PANTOJA 05/01/2023 10:21:00 Final Standing order for pt/inr. < br/>Please draw pt/inr every 1 to 4 weeks as requested.
Results to [facility] Anticoagulation [facility]

Warfarin Therapy
INR: 2.0-3.0 conventional anticoagulation
INR: 2.5-3.5 high intensity anticoagulation Observation Date Value Abnormality Reference (Units ) Status PT 05/01/2023 10:21:00 29.8 Above high normal 11 .6-15.2 (seconds) Final INR 05/01/2023 10:21:00 2.8 Above high normal 0. 8-1.2 Final Performing Location [facility] [place] [address] [place] [address]
--- OUTSIDE RECORDS SUMMARY | 2023-07-10 17:17 | External Medical Summary | Summary of Care ---
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 Name Role Phone Shara Ray MD Primary Care Provide r Reason for Visit * Reason Onset Date Comments Medical Nutrition Therapy 04/23/2023 Encounter Details Date Type Department Care Team (Latest Contact Info) Description 04/23/2023 1:00 PM EST Scheduled Telephone [facility], [facility] [address] [facility] [place] [address] Vee Santacruz, RASHAUN [address] [facility] [place] [address] Hypertensive heart and kidney disease with chronic [...] as of this encounter (statuses as of 04/30/2023) Medications Medication Sig Dispensed Refills Start Date [...] 100 Tablet 0 02/07/2023 4 Active Nystatin 655797 UNIT/ML Mouth/Throat SuspensionIndication s:Thrush Swish and swallow [...] tablets by mouth daily as directed by [facility] 180 Tablet 3 03/06/2023 Active [...] as of this encounter (statuses as of 04/30/2023) Active Problems Problem Noted Date Diagnosed Date [...] IM/IV Chest Xray Additional Comments: Followed by pleat taper - Dr. Rashel Sales [facility] Closed nondisplaced fracture of left tibial tuberosity with routine healing 12/12/2021 Mild protein-calorie malnutrition 12/05/2021 Controlled substance agreement signed 12/05/2021 Hematoma of leg, left, subsequent encounter 09/2021 Overview: [facility] ER ulstrasound shows hematoma calf, [...] Plan: Symptoms well controlled on omeprazole manager long term care current use of anticoagulant therapy 0 05/10/2004 Overview: ICD-10 update of inactive term Rheumatic heart disease 03/05/2002 Old myocardial infarct 01/02/2001 Last Assessment & Plan: Continue Crestor 20 mg daily S/P mitral valve replacement Last Assessment & Plan: Chronic AC coumadin Atherosclerosis of [place] co ronary artery of [place] heart without angina pectoris documented as of this encounter (statuses as of 04/30/2023) Resolved Problems Problem Noted Date Diagnosed Date [...] Overview: Per CKD protocol #1 ORBIT-AF Research Other*[id number] 06/02/2010 04/18/2011 Overview: PROJECT: #[id number], SPONSOR: Geovanna&Geovanna, PI: Adolfo De Jesus MD [...] can be closed. CONTACT: Roberto Carlos Huertas, Weasand Trimmer Type 2 diabetes mellitus wit h hemoglobin [...] as of this encounter (statuses as of 04/30/2023) Immunizations Name Administration Dates Next Due COVID-19 mRNA, LNP-s, No Pre serve, 2-Dose Series (Moderna) 04/19/2020,03/22/2020 COVID-19, MRNA-LNP, 23-24, P F, 30 MCG/0.3 mL, 12 YRS AND ABOVE, IM (SkyDox-Comirnaty) 12/03/2022 COVID-19, mRNA, LNP-s, PF, B ooster, [...] Telephone Encounter - Vee Santacruz, RASHAUN - 04/23/2023 1:12 PM EST Images from the original note were not included. NUTRITION CONSULT - OUTPATIENT [facility] Name: Abdi Bowling Location: [facility] Date: 04/23/2023 Time: 1:12 PM Patient was identified by name and date. After connecting to the patient via telephone, the patient was identified by name and date of . Patient was then informed that this was a telephone call only visit. The patient agreed to participate. Visit Disposition: Routine follow-up Total call duration was 29 minutes. Reason for Referral: CKD Stage 3b NUTRITION ASSESSMENT: Client History 67 year old female enrolled in [facility] [facility] referred to Registered Dietitian for Referred to RDN for "Renal diet" . PMH noted below. Patient agreed to speak to RDN. Reporting boyfriend retired doctor, suggested to patient to see about information on renal diet. Patient with nephrology appointment on 05/09/2023. As of last labs reviewed potassium and phosphorus WNL. Will sent inquire to nephrology if potassium/ phosphorus restriction needed at this time. Patient reporting following 2 liter fluid restriction - monitor all fluids, caregiver measure fluid intake. Avoids using sodium. 24 hour food recall reviewed. Areas of opportunity identified and discussed. Education and reinforcement provided. Pt centered goals established. See full nutrition assessment below. Patient Active Problem List Diagnosis Code Rheumatic heart disease I09.9 manager long term care current use of anticoagulant therapy Z79.01 S/P mitral valve replacement Z95.2 Gastroesophageal reflux disease with esophagitis without hemorrhage K21.00 Generalized osteoarthritis M15.9 Hypothyroidism, postablative E89.0 Atherosclerosis of [place] coronary artery of [place] heart without angina pectoris I25.10 Dyslipidemia, goal [...] COPD, group B, by GOLD 2017 classification ([facility]) J44.9 Iron deficiency anemia D50.9 Restless leg syndrome G25.81 Major depressive disorder, recurrent, moderate (HCC) F33.1 Other persistent atrial fibrillation (HCC) I48.19 Atherosclerosis of [place] coronary artery without angina pectoris I25.10 Support System: Caregiver and patient do grocery shopping and cooking. Purchase low sodium foods, uses OTC card Barriers To Learning: None Special Education Needs: None Food/Nutrition-Related History Describes typical diet history/24 hr recall Appetite varies from poor to good. Breakfast: Yogurt (6 oz) varies original, what is on sale. Chocolate milk (12 oz) Snacks: None Lunch: usually skips, too full for supper then. Will snack on cookies, has reduced chocolate Snacks: None Dinner: Caregiver cooks, "very good cook", Liberian/ Romanian, example: last night chicken noodle soup and with potatoes, last week burgers, lasagna, pizza, limited preference with vegetable (canned beets, mushroom), likes chili, stuffed peppers. Snacks: sometimes ice cream or jello. Drinks: 64 oz, regular pepsi (does not like taste of sugar substitute) < 3 cans per day, Has been using salt substitute (dominguez's), sometimes half sweet tea, coffee. Diet Recall/Food Logs Indicate: AREAS FOR IMPROVEMENT: Significant sodium intake (unclear if cooking recipes are low in sodium) Excessive intake of sweetened beverages (soda) Food and Nutrient Intake and other pertinent information: Patient and caregiver asking about low phosphorus/ low potassium diet. Reports following low sodium, 64 oz fluid restriction Food allergies and/or food intolerances: Parsley Seed noted under allergies in EHR. Pertinent Medications (Current): Current Outpatient Medications Medication Sig Dispense Refill [...] MOUTH AT BEDTIME 100 Tablet 0 Nystatin 449475 UNIT/ML Mouth/Throat Suspension Swish and swallow 5 [...] tablets by mouth daily as directed by [facility] 180 Tablet 3 Nitroglycerin 0.4 MG Sublingual Tablet Sublingual (Nitrostat) PLACE 1 TABLET UNDER THE TONGUE EVERY5 MINUTES UP TO 3 DOSES NEEDED FOR CHEST PAIN. IF NO RELIEF CALL 911 OR GO TO ER 75 Tablet 0 Morphine Sulfate ER 15 MG Oral Tablet Extended Release (MS Contin) Take 1 Tablet by mouth daily as needed for Pain, Severe. Only as needed for pain 30 Tablet 0 traMADol HCl 50 MG Oral [...] the morning on daysdirected 12 Tablet 5 No current facility-administered medications for this visit. Supplements: Not reviewed this date. Prior Nutrition Counseling: Other Health Care Provider Physical Activity: Unable to review this date. Suspect limited Anthropometric Measurements Per [facility] current weight 143 lbs. There were no vitals taken for this visit. Wt Readings from Last 5 Encounters: 04/24/23 64.5 kg (142 lb 3.2 oz) 04/08/23 68 kg (150 lb) 03/19/23 67.3 kg (148 lb 6.4 oz) 02/27/23 66 kg (145 lb 6.4 oz) 12/21/22 63.2 kg (139 lb 4.8 oz) [facility] Weight Change: decreased by 7 pounds in the past ~ 2 weeks Interpretation of weight change: fluid loss. Weight Goal: avoid weight gain related to fluid retention. BMI: BMI Readings from Last 1 Encounters: 04/24/23 31.88 kg/m Nutrition-Focused Physical Findings Full nutrition focused physical exam not able to be conducted: Telephonic nutrition assessment. Biochemical Data, Medical Tests, and Procedures Latest Reference Range & Units 04/03/23 11:30 04/10/23 10:55 04/17/23 11:45 Sodium 135 - 146 mmol/L 136 133 (L) 129 (L) Potassium 3.5 - 5.1 mmol/L 4.3 3.8 3.7 Chloride 98 - 107 mmol/L 96 (L) 89 (L) 86 (L) CO2 22 - 32 mmol/L 29 30 26 BUN 6 - 20 mg/dL 39 (H) 53 (H) 112 (H) Creatinine 0.5 - 1.0 mg/dL 2.1 (H) 2.3 (H) 3.0 (H) Estimated Glomerular Filtration Rate >=60 mL/min 25 (L) 22 (L) 17 (L) Anion Gap 7 - 15 mmol/L 11 14 17 (H) Glucose 70 - 120 mg/dL 149 (H) 160 (H) 204 (H) Calcium 8.4 - 10.2 mg/dL 9.8 10.1 10.0 (L): Data is abnormally low (H): Data is abnormally high Latest Reference Range & Units 11/28/22 09:57 12/19/22 13:56 03/21/23 09:42 Phosphorus 2.5 - 4.8 mg/dL 3.2 3.2 3.0 Hemoglobin AIC Results: Lab Results Component Value Date/Time HEMOGLOBIN A1C - [facility] 7.3 (H) 04/24/2023 11:27 AM HEMOGLOBIN A1C - [facility] 7.0 (H) 11/28/2022 09:57 AM HEMOGLOBIN A1C - [facility] 6.6 (H) 05/30/2022 02:25 PM HEMOGLOBIN A1C - [facility] 6.3 (H) 09/07/2019 11:01 AM HEMOGLOBIN A1C - [facility] 5.8 (H) 03/03/2019 01:39 PM HEMOGLOBIN A1C - [facility] 5.8 (H) 08/29/2018 08:13 AM NUTRITION DIAGNOSIS Food and nutrition-related knowledge deficit related to Significant sodium intake as evidenced by Reported diet and/or activity recall NUTRITION INTERVENTION: FOOD AND/OR NUTRIENT DELIVERY Meals Snacks NUTRITION EDUCATION Initial/brief nutrition education Comprehensive nutrition education NUTRITION COUNSELING Theoretical basis/approach Low sodium nutrition therapy Fluid Restriction Nutrition Management Patient to share with caregiver who cooks and does grocery shopping Nutrition Prescription: Diet: 2000 mg Sodium Consistent Carbohydrate Good Nutrition Reports 64 oz fluid restriction [place] StBennie Jeor: Daily Calorie Needs: 1,237.67 Kcals Daily Protein Needs: 43 Grams protein (0.8 g/kg/AIBW) AIBW = 54kg Goals: Avoid cola; transition to clear soda. Dietitian Action: Spoke with patient and caregiver Shawn. Answered nutrition related questions on phosphorus and potassium. Education provided on dietary restriction vs. Avoiding high quanties. Will inquire to nephrology on if low potassium/ phosphorus needed at this time. Reviewed fluid restriction and low sodium diet. Supportive information being mailed for patient to share with caregiver. Recommendations to Ordering Provider: Communication to nephrology NUTRITION MONITORING AND EVALUATION: The following will be monitored and evaluated at the next visit: Monitor weight. Monitor labs. Review food logs. Monitor goals and progress. Plan:Patient scheduled to return in 3 - 4 weeks ; dietitian phone # given for future reference. 30 minutes Medical Nutrition Therapy 15 min (8-22 min) 30 min (23-37 min) 45 min (38-52 min) 60 min (53-67 min) 75 min (68-82 min) 90 min (83-97 min) 105 min (98-113 min) Time In: 1324 (04/23/23 1324) Time Out: 1353 (04/23/23 1354) Vee Santacruz RDN [facility] documented in this encounter Plan of Treatment Upcoming Encounters Date Type Department Care Team (Late st Contact Info) Description 05/01/2023 9:40 AM EDT Laboratory Lab Mobile Phlebotomy [facility] [address] [place] [address] [facility], [facility] [address] [place] [address] 05/02/2023 6:00 AM EDT Anticoagulation Pharmacy Call Center [address] [place] [address] Ccps, [facility] 58 [address] [facility] [place] [address] 05/07/2023 1:40 PM EDT Office Visit Nephrology [address] [place] [address] Aliyah Lacey MD 200 [facility] [place] [address] 05/14/2023 4:00 PM EDT [facility] Visit [facility], [facility] [address] Valentina Laws, RN 132 [place] [address] 05/21/2023 12:30 PM EDT Scheduled Telephone [facility], [facility] [address] [facility] [place] [address] Vee Sanatcruz RDN [address] [place] [facility] [place] [place] [address] 06/04/2023 1:30 PM EDT Office Visit [facility]ergy[facility]ology [facility] 200 [facility] [place] [address] Macario Pathak MD 200 [facility] [place] [address] 06/10/2023 12:20 PM EDT Office Visit Family Medicine [address] [place] [phone] Shara Ray MD [address] [place] [address] [place] [address] 06/21/2023 8:00 AM EDT Laboratory Lab Mobile Phlebotomy [address] [address] [facility], [facility] [address] [place] [address] 06/21/2023 2:30 PM EDT Office Visit Cardiology, [facility] [address] [place] [address] Hadley Molina MD [address] [facility] [place] [address] 06/24/2023 11:00 AM EDT Office Visit Hematology/Oncology [facility] [address] [facility] [place] [address] Bouchra Del Cid CRNP 400 [place] [address] 08/05/2023 1:00 PM EDT Nurse Only Ancillary [address] [place] [address] [place], Nurse [address] [place] [address] 09/20/2023 8:00 AM EDT Laboratory Lab Mobile Phlebotomy [facility] [address] [place] [address] [facility], [facility] [address] [place] [address] 09/24/2023 11:30 AM EDT Office Visit Nephrology, [facility] [address] [facility] [place] [address] ZeKary bliss PA-C 200 [facility] [place] [address] 12/20/2023 8:00 AM EDT Laboratory Lab Mobile Phlebotomy [facility] [address] [place] [address] [facility], [facility] [address], [place] [address] 03/27/2024 8:00 AM EST Laboratory Lab Mobile Phlebotomy [facility] [address] [place] [address] [facility], [facility] [address] [place] [address] Scheduled Procedures Name Priority Associated Diagnoses Date/Ti [...] Additional history exists CKD HGB USE SMARTSET 66513 03/06/202403/06, 03/06/2023, 12/19/2022, Additional history exists CKD PHOS USE SMARTSET 04642 03/21/2024 02/0 02/2023, 12/19/2022, 11/28/2022, Additional history [...] this encounter Medical Devices Implanted Type Area Nurse Consultant Device Identifier Shelf Expiration Date Model / Serial / Lot [place] Suture Biocomposite - Sn/A - [id number] Implanted:Qty: 2 on 12/13/2021 by Moris Jimenez DO at OR [facility] Left: Leg Lower [employer] 07/18/2024 [id number] / N/A / [id number] Vitoss Bbtrauma Foam Pack - [id number] - [id number] Implanted:Qty: 1 on 12/13/2021 by Moris Jimenez DO at OR [facility] Left: Leg Lower MICHA : TRAUMA 01/15/[id number] / [id number] / [id number] documented as of this encounter Visit Diagnoses [...] Advance Directives occurred with: Patient Care Teams Wood Preserving Plant Laborer Relationship Specialty Start Date End Date Shara Ray MD [address] [place] [address] [place] [phone] PCP - General Family Medicine 03/08/23 documented as of this encounter
--- OUTSIDE RECORDS SUMMARY | 2023-07-10 17:18 | External Medical Summary | Summary of Care ---
Author Name Unknown Organization [facility] Address [address] [facility] [address] Phone [phone] Care Team Providers Care Postie Name Role Phone Shara Ray MD Primary Care Provide r Encounter Details Date Type Department Care Team (Late st Contact Info) Description 04/30/2023 Result Scan Unspecified Department Naomi Vila, DO [address] [facility] [place] [address] <No scans attached> Allergies Active Allergy Reactions [...] 100 Tablet 0 02/07/2023 4 Active Nystatin 138293 UNIT/ML Mouth/Throat SuspensionIndication s:Thrush Swish and swallow [...] Plan: Rate controlled Continue coumadin Atherosclerosis of [place] co ronary artery without angina pectoris 04/03/2023 [...] IM/IV Chest Xray Additional Comments: Followed by dock worker - Dr. 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 current use of anticoagulant therapy 0 05/10/2004 Overview: ICD-10 update of inactive term Rheumatic heart disease 03/05/2002 Old myocardial infarct 01/02/2001 Last Assessment & Plan: Continue Crestor 20 mg daily S/P mitral valve replacement Last Assessment & Plan: Chronic AC coumadin Atherosclerosis of [place] co ronary artery of [place] heart without angina pectoris documented as of this encounter (statuses as of 04/30/2023) Resolved Problems Problem Noted Date Diagnosed Date Resolved Date Complicated UTI (urinary tract infection) 12/20/2021 05/17/2022 Chronic obstructive pulmonary disease 08/21/2021 08/30/2022 Overview: Per COPD GOLD Classification Last Assessment & Plan: No SOB. O2 stable on RA Continue Duonezoya and Breo Chronic diastolic CHF (conge stive [...] Overview: Per CKD protocol #1 ORBIT-AF Research Other*[id number] 06/02/2010 04/18/2011 Overview: PROJECT: #[id number], SPONSOR: Aileen, PI: Adolfo De Jesus MD [...] can be closed. CONTACT: Roberto Carlos Huertas, Technical Implementation Lead Type 2 diabetes mellitus wit h [...] MCG/0.3 mL, 12 YRS AND ABOVE, IM ([employer]Comirnat) 12/03/2022 COVID-19, mRNA, LNP-s, PF, B ooster, [...] 9:40 AM EDT Laboratory Lab Mobile Phlebotomy [facility] [address] [place] [address] [facility], [facility] Mobile Home Draw [address] [place] [address] 05/02/2023 6:00 AM EDT Anticoagulation Pharmacy Call Center [address] [place] [address] [facility] [address] [place] [address] 05/07/2023 1:40 PM EDT Office Visit Nephrology [address] [place] [address] Aliyah Lacey MD [address] [facility] [place] [address] 05/14/2023 4:00 PM EDT Home Visit [facility], [facility] 132 [place] [place] [address] Valentina Laws, RN [address] [place] [address] 05/21/2023 12:30 PM EDT Scheduled Telephone [facility], [facility] [address] [facility] [place] [address] Vee Santacruz, KOSTAN [address] [facility] [place] [address] 06/04/2023 1:30 PM EDT Office Visit Allergy/Immunology [facility] [place] [address] [place] [address] Macario Pathak MD [address] [facility] [place] [address] 06/10/2023 12:20 PM EDT Office Visit Family Medicine [address] [place] [phone] Shara Ray MD [address] [place] [address] [place] [address] 06/21/2023 8:00 AM EDT Laboratory Lab Mobile Phlebotomy [facility] [address] [place] [address] [facility], [facility] Mobile Home Draw [address] [place] [address] 06/21/2023 2:30 PM EDT Office Visit Cardiology, [facility] 132 [facility] [place] [address] Hadley Molina MD 132 [facility] [place] [address] 06/24/2023 11:00 AM EDT Office Visit Hematology/Oncology [facility] [address] [place] [address] Bouchra Del Cid CRNP 400 [facility] [place] [id number] 08/05/2023 1:00 PM EDT Nurse Only Ancillary [address] [place] [address] Andriy, Nurse [address] [place] [address] 09/20/2023 8:00 AM EDT Laboratory Lab Mobile Phlebotomy [facility] [address] [place] [address] [facility], [facility] Mobile Home Draw [address] [place] [address] 09/24/2023 11:30 AM EDT Office Visit Nephrology, [facility] [address] [facility] [place] [address] ZemaitisKary PA-C [address] [facility] [place] [address] 12/20/2023 8:00 AM EDT Laboratory Lab Mobile Phlebotomy [facility] [address] [place] [address] [facility], [facility] Mobile Home Draw [address] [place] [address] 03/27/2024 8:00 AM EST Laboratory Lab Mobile Phlebotomy [facility] [address] [place] [address] [facility], [facility] Mobile Home Draw [address] [place] [address] Scheduled Procedures Name Priority Associated Diagnoses Date/Ti [...] Additional history exists CKD HGB USE SMARTSET 21805 03/06/202403/06, 03/06/2023, 12/19/2022, Additional history exists CKD PHOS USE SMARTSET 06496 03/21/2024 02/0 02/2023, 12/19/2022, 11/28/2022, Additional history [...] this encounter Medical Devices Implanted Type Area Security Consultant Device Identifier Shelf Expiration Date Model / Serial / Lot [place] Suture Biocomposite - Sn/A - [id number] Implanted:Qty: 2 on 12/13/2021 by Moris Jimenez DO at OR [facility] Left: Leg Lower [employer] 07/18/2024 AR-2324BCC / N/A / [id number] Vitoss Bbtrauma Foam Pack - [id number] - [id number] Implanted:Qty: 1 on 12/13/2021 by Moris Jimenez DO at OR [facility] Left: Leg Lower MICHA : TRAUMA 01/15/2022 / [id number] / [id number] documented as of this encounter Procedures Procedure Name Priority Date/Time Associated Diagnosis Comments CARDIOLOGY SCANNED RESULT 04/30/2023 documented in this encounter Results * CARDIOLOGY SCANNED RESULT (04/30/2023) 04/30/2023 Naomi Vila DO OTHER documented in this encounter Advance Directives Latest Code Status on File Code Status Date Activated Date Inactivated Comments Full Code 12/12/2021 7:18 PM 12/20/2021 6:08 PM This order reflects the patients wishes and were consensually agreed upon. Question Answer Comments Discussion of Advance Directives occurred with: Patient Care Teams Postie Relationship Specialty Start Date End Date Shara Ray MD [address] [place] [address] [place] [phone] PCP - General Family Medicine 03/08/23 documented as of this encounter
--- OUTSIDE RECORDS SUMMARY | 2023-07-10 17:26 | External Medical Summary | Summary of Care ---
Author Name Unknown Organization [facility] Address [address] [facility] [place] [address] Phone [phone] Care Team Providers Care Horse Groomer Name Role Phone Shara Ray MD Primary Care Provide r Reason for Visit * Reason Onset Date Comments Nutritional Services Documentation 04/29/2023 Encounter Details Date Type Department Care Team (Late st Contact Info) Description 04/29/2023 Telephone [facility], [facility] [address] [facility] [place] [address] Vee Santacruz RDN [address] [facility] [place] [address] Nutritional Services Documentation Allergies Active Allergy Reactions [...] as of this encounter (statuses as of 04/29/2023) Medications Medication Sig Dispensed Refills Start Date [...] 100 Tablet 0 02/07/2023 4 Active Nystatin 658928 UNIT/ML Mouth/Throat SuspensionIndication s:Thrush Swish and swallow [...] as of this encounter (statuses as of 04/29/2023) Active Problems Problem Noted Date Diagnosed Date Major depressive disorder, recurrent, moderate 0 04/03/2023 Last Assessment & Plan: Mood stable on current dose celexa Other persistent atrial fibrillation 04/03/2023 Last Assessment & Plan: Rate controlled Continue coumadin Atherosclerosis of [place] co ronary artery without angina pectoris [...] IM/IV Chest Xray Additional Comments: Followed by junior assistant manager - Dr. Rashel Sales [facility] Closed nondisplaced fracture of left [...] & Plan: Symptoms well controlled on omeprazole USP current use of anticoagulant therapy 0 05/10/2004 Overview: ICD-10 update of inactive term Rheumatic heart disease 03/05/2002 Old myocardial infarct 01/02/2001 Last Assessment & Plan: Continue Crestor 20 mg daily S/P mitral valve replacement Last Assessment & Plan: Chronic AC coumadin Atherosclerosis of [place] co ronary artery of [place] heart without angina pectoris documented as of this encounter (statuses as of 04/29/2023) Resolved Problems Problem Noted Date Diagnosed Date [...] Overview: Per CKD protocol #1 ORBIT-AF Research Other*[id number] 06/02/2010 04/18/2011 Overview: PROJECT: #[id number], SPONSOR: Aileen, PI: Adolfo De Jesus MD [...] can be closed. 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 Abdi was recently referred to [...] diet in potassium and phosphorus. Thank you, RIAZ Garcia, RDN, LDN Clinical Dietitian [facility] documented in this encounter Plan of Treatment Upcoming Encounters Date Type Department Care Team (Late st Contact Info) Description 05/01/2023 9:40 AM EDT Laboratory Lab Mobile Phlebotomy [facility] [address] [place] [address] [facility] Draw [address] [place] [address] 05/02/2023 6:00 AM EDT Anticoagulation Pharmacy Call Center WB 58-60 [facility] [place] [address] Ccps, [facility] 58 60 [facility] [place] [address] 05/07/2023 1:40 PM EDT Office Visit Nephrology [address] [place] [address] Aliyah Lacey MD 200 [facility] [place] [address] 05/14/2023 4:00 PM EDT Home Visit [facility], [facility] 132 [place] [address] Valentina Laws, RN 132 [place] [address] 05/21/2023 12:30 PM EDT Scheduled Telephone [facility], [facility] [address] [facility] [place] [address] Vee Santacruz RDN [address] [facility] [place] [address] 06/04/2023 1:30 PM EDT Office Visit Allergy/Immunology [facility] [address] [place] [address] Maacrio Pathak MD [address] [place] [address] 06/10/2023 12:20 PM EDT Office Visit Family Medicine [address] [place] [address] Shara Ray MD [address] [place] [address] [place] [address] 06/21/2023 8:00 AM EDT Laboratory Lab Mobile Phlebotomy [facility] [address] [place] [address] [facility] Mobile Home Draw [address] [place] [address] 06/21/2023 2:30 PM EDT Office Visit Cardiology, [facility] [address] [place] [address] Hadley Molina MD 132 [address] [facility] [place] [address] 06/24/2023 11:00 AM EDT Office Visit Hematology/Oncology [facility] [address] [place] [address] Bouchra Del Cid CRNP 400 [place] [address] 08/05/2023 1:00 PM EDT Nurse Only Ancillary [address] [place] [address] [place], Nurse [address] [place] [address] 09/20/2023 8:00 AM EDT Laboratory Lab Mobile Phlebotomy [facility] [address] [place] [address] [facility] Mobile Home Draw [address] [place] [address] 09/24/2023 11:30 AM EDT Office Visit Nephrology, [facility] 200 [facility] [place] [address] ZeKary bliss PA-C 200 [facility] [place] [address] 12/20/2023 8:00 AM EDT Laboratory Lab Mobile Phlebotomy [facility] [address] [facility] [place] [address] [facility] Mobile Home Draw [address] [place] [address] 03/27/2024 8:00 AM EST Laboratory Lab Mobile Phlebotomy [facility] [address] [place] [address] [facility] Mobile Home Draw [address] [place] [address] Scheduled Procedures Name Priority Associated Diagnoses Date/Ti [...] 07/30/2022, 0 09/02/2019, 08/29/2018, Additional history exists GFR 10/25/2023 04/24/2023, 03/22, 04/10/2023, Additional history exists HbA1c 10/25/2023 04/24/2023, 11/18, 05/30/2022, Additional history exists Mammogram 11/16/2023 11/15/2022, 10/20, 07/03/2021, Additional history exists Albumin/Creatinine Ratio 12/04/2023 023, 02/05/2022, 01/26/2021, Additional history exists CKD HGB USE SMARTSET 40048 03/06/202403/06, 03/06/2023, 12/19/2022, Additional history exists CKD PHOS USE SMARTSET 48740 03/21/2024 02/0 02/2023, 12/19/2022, 11/28/2022, Additional history [...] this encounter Medical Devices Implanted Type Area Diesel Dragline Operator Device Identifier Shelf Expiration Date Model / Serial / Lot [place] Suture Biocomposite - Sn/A - [id number] Implanted:Qty: 2 on 12/13/2021 by Moris Jimenez DO at OR [facility] Left: Leg Lower [employer] 07/18/2024 AR-2324BCC / N/A / [id number] Vitoss Bbtrauma Foam Pack - [id number] - [id number] Implanted:Qty: 1 on 12/13/2021 by Moris Jimenez DO at OR [facility] Left: Leg Lower MICHA : TRAUMA 01/15/[id number] / [id number] / [id number] documented as of this encounter Advance Directives Latest Code Status on File Code Status Date Activated Date Inactivated Comments Full Code 12/12/2021 7:18 PM 12/20/2021 6:08 PM This order reflects the patients wishes and were consensually agreed upon. Question Answer Comments Discussion of Advance Directives occurred with: Patient Care Teams Horse Groomer Relationship Specialty Start Date End Date Shara Ray MD [address] [place] [address] [place] [address] PCP - General Family Medicine 03/08/23 documented as of this encounter
--- OUTSIDE RECORDS SUMMARY | 2023-07-10 17:28 | External Medical Summary | Summary of Care ---
Author Name Unknown Organization [facility] Address [address] [place] [address] Phone [phone] Care Team Providers Care Spindle Plumber Name Role Phone Shara Ray MD Primary Care Provide r Reason for Visit * Reason Onset Date Comments Advice 04/29/2023 Encounter Details Date Type Department Care Team (Late st Contact Info) Description 04/29/2023 Telephone Nephrology, [address] [address] Services, Scheduling [address] [place] [address] Advice Allergies Active Allergy Reactions Criticality Noted [...] 100 Tablet 0 02/07/2023 4 Active Nystatin 069612 UNIT/ML Mouth/Throat SuspensionIndication s:Thrush Swish and swallow [...] tablets by mouth [facility] 180 Tablet 3 03/06/2023 Active Nitroglycerin [...] Plan: Rate controlled Continue coumadin Atherosclerosis of [place] co ronary artery without angina pectoris 04/03/2023 [...] IM/IV Chest Xray Additional Comments: Followed by weaving supervisor - Dr. Rashel Sales [facility] Closed nondisplaced fracture of left tibial tuberosity with routine healing 12/12/2021 Mild protein-calorie malnutrition 12/05/2021 Controlled substance agreement signed 12/05/2021 Hematoma of leg, left, subsequent encounter 09/2021 Overview: [facility] ER ulstrasound shows hematoma calf, INR [...] the Comments) Remote Patient Monitoring Vendor: [facility] Device(s): Connected Scale Self [...] & Plan: Chronic AC coumadin Atherosclerosis of [place] co ronary artery of [place] heart without angina pectoris documented as of [...] Overview: Per CKD protocol #1 ORBIT-AF Research Other*[id number] 06/02/2010 04/18/2011 Overview: PROJECT: #[id number], SPONSOR: Geovanna&Geovanna, PI: Adolfo De Jesus MD [...] can be closed. CONTACT: Roberto Carlos Huertas, Statistical Financial Analyst Type 2 diabetes mellitus wit h hemoglobin A1c goal of less than 7.0% 04/24/2010 08/29/2018 Overview: ICD-10 update of inactive term ACTIVE CASE MANAGEMENT Kassie Anthony RN [phone] 05/10/19 10 12/05/2009 ADVANCE DIRECTIVE INFORMATION 05/09/2009 04/26/2021 Overview: No, Advance Directive brochure given to patient. Dyslipidemia, goal LDL below 100 02/03/2009 09/24/2013 Overview: Per Lipid Taxonomy. Other abnormal glucose 03/13/200509/24 Mixed dyslipidemia 04/08/200202/03/200 9 Overview: Per Lipid Taxonomy. Anticoagulation management [...] MCG/0.3 mL, 12 YRS AND ABOVE, IM ([employer]-Comirnat) 12/03/2022 COVID-19, mRNA, LNP-s, PF, B ooster, [...] encounter Miscellaneous Notes * Telephone Encounter - Avelina Davis RN - 04/29/2023 3:52 PM EDT TE with Brooke- I read the recommendations and faxed copy of office note at their request. Will adjust medications accordingly for best pain relief and least amount of medication. Care clinic will adjust medication doses. * Telephone Encounter - Keya Smith OSA - 04/29/2023 2:59 PM EDT Good afternoon, Brooke from [facility] requesting a call back regarding med adjustment. Brooke states that pt told her that morphine needs to be lowered and she is requesting a call back regarding dosage recommendations. Please contact Brooke at [phone] ext [phone]. Thank you! documented in this encounter Plan of Treatment Upcoming Encounters Date Type Department Care Team (Late st Contact Info) Description 05/01/2023 9:40 AM EDT Laboratory Lab Mobile Phlebotomy [facility] [address] [place] [address] [facility] Mobile Home Draw [address] [place] [address] 05/02/2023 6:00 AM EDT Anticoagulation Pharmacy Call Center WB 58-60 [facility] [place] [address] Ccps, [facility] 58 60 [facility] [place] [address] 05/07/2023 1:40 PM EDT Office Visit Nephrology [address] [place] [address] Aliyah Lacey MD [address] [place] [address] 05/14/2023 4:00 PM EDT [facility] Visit [facility], [facility] 132 [place] [address] Valentina Laws RN 132 [place] [address] 06/04/2023 1:30 PM EDT Office Visit Allergy/Immunology [facility] [address] [place] [address] Macario Pathak MD 200 [facility] [place] [address] 06/10/2023 12:20 PM EDT Office Visit Family Medicine [address] [place] [address] Shara Ray MD [address] [place] [address] [place] [address] 06/21/2023 8:00 AM EDT Laboratory Lab Mobile Phlebotomy [facility] [address] [place] [address] [facility] Mobile Home Draw [address] [place] [address] 06/21/2023 2:30 PM EDT Office Visit Cardiology, [facility] 132 [place] [address] Hadley Molina MD 132 [place] [address] 06/24/2023 11:00 AM EDT Office Visit Hematology/Oncology [facility] [place] 200 [facility] [place] [address] Bouchra Del Cid CRNP 400 [facility] [place] [address] 08/05/2023 1:00 PM EDT Nurse Only Ancillary [address] [place] [address] [place], Nurse [address] [place] [address] 09/20/2023 8:00 AM EDT Laboratory Lab Mobile Phlebotomy [facility] [address] [place] [address] [facility] l Mobile Home Draw [address] [place] [address] 09/24/2023 11:30 AM EDT Office Visit Nephrology, [facility] 200 [facility] [place] [address] Kary Pena PA-C 200 [facility] [place] [address] 12/20/2023 8:00 AM EDT Laboratory Lab Mobile Phlebotomy C [address] [place] [address] Gm, Gml Mobile Home Draw [address] [place] [address] 03/27/2024 8:00 AM EST Laboratory Lab Mobile Phlebotomy C [address] [place] [address] [facility] Mobile Home Draw [address] [place], [place] [id number] Scheduled Procedures Name Priority Associated Diagnoses Date/Ti [...] Additional history exists CKD HGB USE SMARTSET 64528 03/06/202403/06, 03/06/2023, 12/19/2022, Additional history exists CKD PHOS USE SMARTSET 54136 03/21/2024 02/0 02/2023, 12/19/2022, 11/28/2022, Additional history [...] this encounter Medical Devices Implanted Type Area Speech And Drama Teacher Device Identifier Shelf Expiration Date Model / Serial / Lot [place] Suture Biocomposite - Sn/A - [id number] Implanted:Qty: 2 on 12/13/2021 by Moris Jimenez, DO at OR [facility] Left: Leg Lower [employer] 07/18/2024 AR-2324BCC / N/A / [id number] Vitoss Bbtrauma Foam Pack - [id number] - [id number] Implanted:Qty: 1 on 12/13/2021 by Moris Jimenez DO at OR [facility] Left: Leg Lower MICHA : TRAUMA 01/15/2022 / [id number] / [id number] documented as of this encounter Advance Directives Latest Code Status on File Code Status Date Activated Date Inactivated Comments Full Code 12/12/2021 7:18 PM 12/20/2021 6:08 PM This order reflects the patients wishes and were consensually agreed upon. Question Answer Comments Discussion of Advance Directives occurred with: Patient Care Teams Spindle Plumber Relationship Specialty Start Date End Date Shara Ray MD [address] [place] [address] [place] [phone] PCP - General Family Medicine 03/08/23 documented as of this encounter
--- OUTSIDE RECORDS SUMMARY | 2023-07-10 17:33 | External Medical Summary | Summary of Care ---
Author Name Unknown Organization [facility] Address [address] [place] [address] Phone [phone] Care Team Providers Care Tester Food Products Name Role Phone Shara Ray MD Primary Care Provide r Reason for Visit * Reason Onset Date Comments Advice 04/29/2023 Encounter Details Date Type Department Care Team (Late st Contact Info) Description 04/29/2023 Telephone Nephrology, [address] [address] Services, Scheduling [address] [place] [address] Advice Allergies Active Allergy Reactions Criticality Noted [...] 100 Tablet 0 02/07/2023 4 Active Nystatin 702371 UNIT/ML Mouth/Throat SuspensionIndication s:Thrush Swish and swallow [...] tablets by mouth daily [facility] 180 Tablet 3 03/06/2023 Active Nitroglycerin [...] Plan: Rate controlled Continue coumadin Atherosclerosis of [place] co ronary artery without angina pectoris 04/03/2023 [...] IM/IV Chest Xray Additional Comments: Followed by roll forming machine operator - Dr. Rashel Sales [facility] Closed [...] in the Comments) Remote Patient Monitoring Vendor: [facility] Device(s): Connected Scale Self [...] & Plan: Chronic AC coumadin Atherosclerosis of [place] co ronary artery of [place] heart without angina pectoris documented as of [...] Overview: Per CKD protocol #1 ORBIT-AF Research Other*[id number] 06/02/2010 04/18/2011 Overview: PROJECT: #[id number], SPONSOR: Geovanna&Geov[employer], PI: Adolfo De Jesus MD [...] can be closed. CONTACT: Roberto Carlos Huertas, Clinical Trials Systems Administrator Type 2 diabetes mellitus wit h hemoglobin A1c goal of less than 7.0% 04/24/2010 08/29/2018 Overview: ICD-10 update of inactive term ACTIVE CASE MANAGEMENT Kassie Anthoyn RN [phone] 05/10/19 10 12/05/2009 ADVANCE [...] MCG/0.3 mL, 12 YRS AND ABOVE, IM (ProDeaf-Comirnat) 12/03/2022 COVID-19, mRNA, LNP-s, PF, B ooster, [...] Miscellaneous Notes * Telephone Encounter - Keya Smith OSA - 04/29/2023 2:59 PM EDT Good afternoon, Brooke from [facility] requesting a call back regarding med adjustment. Brooke states that pt told her that morphine needs to be lowered and she is requesting a call back regarding dosage recommendations. Please contact Brooke at [phone] ext [phone]. Thank you! documented in this encounter Plan of Treatment Upcoming Encounters Date Type Department Care Team (Late st Contact Info) Description 05/01/2023 9:40 AM EDT Laboratory Lab Mobile Phlebotomy [facility] [address] [place] [address] [facility] Mobile Home Draw [address] [place] [address] 05/02/2023 6:00 AM EDT Anticoagulation Pharmacy Call Center 58-60 [facility] [place] [address] [facility], [facility] 58 60 [facility] [place] [address] 05/07/2023 1:40 PM EDT Office Visit Nephrology [address] [place] [address] Aliyah Lacey MD 200 [facility] [place] [address] 05/14/2023 4:00 PM EDT [facility], [facility] [place] [address] Valentina Laws RN 132 [facility] [place] [address] 06/04/2023 1:30 PM EDT Office Visit Allergy/Immunology [facility] [address] [place] [address] Macario Pathak MD [address] [place] [address] 06/10/2023 12:20 PM EDT Office Visit Family [address] [address] Shara Ray MD [address] [place] [address] [place] [address] 06/21/2023 8:00 AM EDT Laboratory Lab Mobile Phlebotomy [facility] [address] [place] [address] [facility] Mobile Home Draw [address] [place] [address] 06/21/2023 2:30 PM EDT Office Visit Cardiology, [facility] 132 [facility] [place] [address] Hadley Molina MD 132 [facility] [place] [address] 06/24/2023 11:00 AM EDT Office Visit Hematology/Oncology [facility] [address] [place] [address] Bouchra Del Cid CRNP [address] [place] [address] [place] [address] 08/05/2023 1:00 PM EDT Nurse Only Ancillary Tena Dunbar[address] [place] [address] [place], Nurse [address] [place] [address] 09/20/2023 8:00 AM EDT Laboratory Lab Mobile Phlebotomy [facility] [address] [place] [address] [facility] Mobile Home Draw [address] [place] [address] 09/24/2023 11:30 AM EDT Office Visit Nephrology, [facility] 200 [facility] [place] [address] ZeKary bliss PA-C [address] [facility] [place] [address] 12/20/2023 8:00 AM EDT Laboratory Lab Mobile Phlebotomy [facility] [address] [place] [address] [facility] Mobile Home Draw [address] [place] [address] 03/27/2024 8:00 AM EST Laboratory Lab Mobile Phlebotomy [facility] [address] [place] [address] [facility] Mobile Home Draw [address] [place] [address] Scheduled Procedures Name Priority Associated Diagnoses Date/Ti [...] Additional history exists CKD HGB USE SMARTSET 20510 03/06/202403/06, 03/06/2023, 12/19/2022, Additional history exists CKD PHOS USE SMARTSET 66735 03/21/2024 02/0 02/2023, 12/19/2022, 11/28/2022, Additional history [...] this encounter Medical Devices Implanted Type Area Oil Burner Journeyman Device Identifier Shelf Expiration Date Model / Serial / Lot [place] Suture Biocomposite - Sn/A - [id number] Implanted:Qty: 2 on 12/13/2021 by Moris Jimenez, DO at OR [facility] Left: Leg Lower [employer] 07/18/2024 AR-2324BCC / N/A / [id number] Vitoss Bbtrauma Foam Pack - [id number] - [id number] Implanted:Qty: 1 on 12/13/2021 by Moris Jimenez, DO at OR [facility] Left: Leg Lower MICHA : TRAUMA 01/15/2022 / [id number] / [id number] documented as of this encounter Advance Directives Latest Code Status on File Code Status Date Activated Date Inactivated Comments Full Code 12/12/2021 7:18 PM 12/20/2021 6:08 PM This order reflects the patients wishes and were consensually agreed upon. Question Answer Comments Discussion of Advance Directives occurred with: Patient Care Teams Tester Food Products Relationship Specialty Start Date End Date Shara Ray MD [address] [place] [address] [place] [phone] PCP - General Family Medicine 03/08/23 documented as of this encounter
--- OUTSIDE RECORDS SUMMARY | 2023-07-10 17:34 | External Medical Summary | Summary of Care ---
Author Name Unknown Organization [facility] Address [address] [facility] [place] [address] Phone [phone] Care Team Providers Care Legal File Clerk Name Role Phone Shara Ray MD Primary Care Provide r Reason for Visit * Reason Comments Outpatient Testing Encounter Details Date Type Department Care Team (Late st Contact Info) Description 04/29/2023 10:10 AM EDT Laboratory Laboratory [address] [place] [phone] [place] [address] Hypertensive heart and kidney disease with chronic diastolic congestive heart failure and stage 3b chronic kidney disease (HCC) Allergies Active [...] 100 Tablet 0 02/07/2023 4 Active Nystatin 677258 UNIT/ML Mouth/Throat SuspensionIndication s:Thrush Swish and swallow [...] Plan: Rate controlled Continue coumadin Atherosclerosis of [place] co ronary artery without angina pectoris 04/03/2023 [...] IM/IV Chest Xray Additional Comments: Followed by law office manager - [facility] Rashel Sales [facility] [...] & Plan: Chronic AC coumadin Atherosclerosis of [place] co ronary artery of [place] heart without angina pectoris documented as of [...] Overview: Per CKD protocol #1 [employer] Other*[id number] 06/02/2010 04/18/2011 Overview: PROJECT: #[id number], SPONSOR: Aileen, PI: Adolfo De Jesus MD [...] can be closed. CONTACT: Roberto Carlos Huertas, Metal Sheet Roller Operator Type 2 diabetes mellitus wit h [...] MCG/0.3 mL, 12 YRS AND ABOVE, IM (Cooperation Technology-Comirnaty) 12/03/2022 COVID-19, mRNA, LNP-s, PF, B [...] 9:40 AM EDT Laboratory Lab Mobile Phlebotomy [facility] [address] [place] [address] [facility] [place] [facility] Mobile Home Draw [address] [place] [address] 05/02/2023 6:00 AM EDT Anticoagulation Pharmacy Call Center [address] [place] [address] [facility] [address] [place] [address] 05/09/2023 1:00 PM EDT Office Visit Nephrology [address] [place] [address] Aliyah Lacey MD 200 [place] [address] 05/14/2023 4:00 PM EDT [facility] Visit [facility] 132 [facility] [place] [address] Valentina Laws, TANISHA 132 [facility] [place] [address] 06/04/2023 1:30 PM EDT Office Visit Allergy/Immunology [facility] [place] [address] [facility] [place] [address] Macario Ptahak MD 200 [facility] [place] [address] 06/10/2023 12:20 PM EDT Office Visit Family Medicine [address] [place] [phone] Shara Ray MD [address] [place] [address] [place] [address] 06/21/2023 8:00 AM EDT Laboratory Lab Mobile [facility] [address] [place] [address] [facility] [place] [facility] Mobile Home Draw [address] [place] [address] 06/21/2023 2:30 PM EDT Office Visit Cardiology, [facility] [place] [address] Hadley Molina MD 132 [facility] [place] [address] 06/24/2023 11:00 AM EDT Office Visit Hematology/Oncology [facility] [place] 200 [facility] [place] [phone] Bouchra Del Cid CRNP 400 [facility] [place] [address] 08/05/2023 1:00 PM EDT Nurse Only Ancillary [address] [place] [address] [place], Nurse [address] [place] [address] 09/20/2023 8:00 AM EDT Laboratory Lab Mobile Phlebotomy [facility] [address] [place] [address] [facility] [place] [facility] Mobile Home Draw [address] [place] [address] 09/24/2023 11:30 AM EDT Office Visit Nephrology, [facility] 200 [place] [address] ZemaitisKary PA-C 200 [facility] [address] 12/20/2023 8:00 AM EDT Laboratory Lab Mobile Phlebotomy [facility] [address] [place] [address] [facility] [place] [facility] Mobile Home Draw [address] [place] [address] 03/27/2024 8:00 AM EST Laboratory Lab Mobile Phlebotomy [facility] [address] [place] [address] [facility] [place] [facility] Mobile Home Draw [address] [place] [address] Pending Results Name Type Priority Associated Diagnoses Date /Time BASIC METABOLIC PANEL Lab Routine Hypertensive heart and kidney disease with chronic diastolic congestive heart failure and stage 3b chronic kidney disease (HCC) 04/29/2023 10:03 AM EDT Scheduled Procedures Name Priority Associated [...] Additional history exists CKD HGB USE SMARTSET 06923 03/06/202403/06, 03/06/2023, 12/19/2022, Additional history exists CKD PHOS USE SMARTSET 85102 03/21/2024 02/0 02/2023, 12/19/2022, 11/28/2022, Additional history [...] this encounter Medical Devices Implanted Type Area Fusing Machine Operator Device Identifier Shelf Expiration Date Model / Serial / Lot [place] Suture Biocomposite - Sn/A - [id number] Implanted:Qty: 2 on 12/13/2021 by Moris Jimenez, DO at OR [facility] Left: Leg Lower [employer] 07/18/2024 [id number] / N/A / [id number] Vitoss Bbtrauma Foam Pack - [id number] - [id number] Implanted:Qty: 1 on 12/13/2021 by Moris Jimenez, at OR [facility] Left: Leg Lower MICHA : TRAUMA 01/15/20226417-4568 / [id number] / [id number] documented as of this encounter Visit Diagnoses Diagnosis Hypertensive heart and kidney disease with chronic diastolic congestive heart failure and stage 3b chronic kidney disease (HCC) documented in this encounter Advance Directives Latest Code Status on File Code Status Date Activated Date Inactivated Comments Full Code 12/12/2021 7:18 PM 12/20/2021 6:08 PM This order reflects the patients wishes and were consensually agreed upon. Question Answer Comments Discussion of Advance Directives occurred with: Patient Care Teams Legal File Clerk Relationship Specialty Start Date End Date Shara Ray MD [address] [place] [address] [place] [phone] PCP - General Family Medicine 03/08/23 documented as of this encounter
--- OUTSIDE RECORDS SUMMARY | 2023-07-10 17:34 | External Medical Summary ---
Author Name Unknown Address Unknown Organization K01:[facility] [place] - [facility] [address] [facility] [address] [facility] [address] Laboratory Report Ordering Provider Test Date Status CHERIE VILLAR 04/29/2023 10:03:10 Final Observation Date Value Abnormality Reference (Units ) Status BUN 04/29/2023 10:03:10 36 Above high normal 6-20 (mg/dL) Final Creatinine 04/29/2023 10:03:10 1.8 Above high normal 0.5-1.0 (mg/dL) Final Glomerular filtration rate/1.73 sq M.predicted [Volume Rate/Area] in Serum, Plasma or Blood by Creatinine-based formula (CKD-EPI) 04/29/2023 10:03:10 30 Below low normal >=60 (mL/min) Final eGFR is calculated based on the CKD-EPI 2020 equation SODIUM 04/29/2023 10:03:10 132 Below low normal 135 -146 (mmol/L) Final Potassium 04/29/2023 10:03:10 3.8 3.5-5.1 (m mol/L) Final Cl 04/29/2023 10:03:10 98 98-107 (mm ol/L) Final CO2 04/29/2023 10:03:10 22 22-32 (mmo l/L) Final Anion gap 04/29/2023 10:03:10 12 7-15 (mmol /L) Final Glucose 04/29/2023 10:03:10 119 70-120 (mg /dL) Final Calcium 04/29/2023 10:03:10 10.1 8.4-10.2 ( mg/dL) Final Performing Location [facility] [place] - [address] [place] [address]
--- OUTSIDE RECORDS SUMMARY | 2023-07-10 17:35 | External Medical Summary | Summary of Care ---
Author Name Unknown Organization [facility] Address [address] [facility] [place] [address] Phone [phone] Care Team Providers Care Molder Wax Ball Name Role Phone Shara Ray MD Primary Care Provide r Reason for Visit * Reason Onset Date Comments Follow Up 04/26/2023 Encounter Details Date Type Department Care Team (Late st Contact Info) Description 04/26/2023 Telephone [facility], [facility] [address] [place] [address] Valentina Laws RN [address] [place] [address] Follow Up Allergies Active Allergy Reactions Criticality [...] as of this encounter (statuses as of 04/26/2023) Medications Medication Sig Dispensed Refills Start Date [...] 100 Tablet 0 02/07/2023 4 Active Nystatin 290134 UNIT/ML Mouth/Throat SuspensionIndication s:Thrush Swish and swallow [...] as of this encounter (statuses as of 04/26/2023) Active Problems Problem Noted Date Diagnosed Date Major depressive disorder, recurrent, moderate 0 04/03/2023 Last Assessment & Plan: Mood stable on current dose celexa Other persistent atrial fibrillation 04/03/2023 Last Assessment & Plan: Rate controlled Continue coumadin Atherosclerosis of [place] co ronary artery without angina pectoris 04/03/2023 [...] Chest Xray Additional Comments: Followed by head end desizing machine operator - Dr. Rashel Sales [facility] [...] in the Comments) Remote Patient Monitoring Vendor: [facility] Device(s): Connected Scale Self - Management Plan [...] & Plan: Symptoms well controlled on omeprazole long term care social worker current use of anticoagulant therapy 0 05/10/2004 Overview: ICD-10 update of inactive term Rheumatic heart disease 03/05/2002 Old myocardial infarct 01/02/2001 Last Assessment & Plan: Continue Crestor 20 mg daily S/P mitral valve replacement Last Assessment & Plan: Chronic AC coumadin Atherosclerosis of [place] co ronary artery of [place] heart without angina pectoris documented as of this encounter (statuses as of 04/26/2023) Resolved Problems Problem Noted Date Diagnosed Date [...] Overview: Per CKD protocol #1 ORBIT-AF Research Other*[id number] 06/02/2010 04/18/2011 Overview: PROJECT: #[id number], SPONSOR: Aileen, PI: Adolfo De Jesus MD [...] can be closed. CONTACT: Roberto Carlos Huertas, Em Physician Type 2 diabetes mellitus wit h hemoglobin [...] as of this encounter (statuses as of 04/26/2023) Immunizations Name Administration Dates Next Due COVID-19 mRNA, LNP-s, No Pre serve, 2-Dose Series (Moderna) 04/19/2020,03/22/2020 COVID-19, MRNA-LNP, 23-24, P F, 30 MCG/0.3 mL, 12 YRS AND ABOVE, IM (Catglobe-Comirnaty) 12/03/2022 COVID-19, mRNA, LNP-s, PF, B ooster, [...] 9:40 AM EDT Laboratory Lab Mobile Ph[facility]bot[facility] [address] [place] [address] [facility] Mobile Home Draw [address] [place] [address] 05/02/2023 6:00 AM EDT Anticoagulation Pharmacy Call Center WB [address] [facility] [place] [address] [facility] 58 60 [facility] [place] [address] 05/09/2023 1:00 PM EDT Office Visit Nephrology [address] [place] [address] Aliyah Lacey MD [address] [facility] [place] [address] 05/14/2023 4:00 PM EDT Home Visit [facility] at [facility] 132 [facility] [place] [address] Valentina Laws RN 132 [place] [address] 06/04/2023 1:30 PM EDT Office Visit Allergy/Immunology [facility] [address] [facility] [place] [address] Macario Pathak MD [address] [place] [address] 06/10/2023 12:20 PM EDT Office Visit Family [address] [phone] Shara Ray MD [address] [place] [address] [place] [address] 06/21/2023 8:00 AM EDT Laboratory Lab Mobile Phlebotomy [facility] [address] [place] [address] [facility], [facility] Mobile Home Draw [address] [place] [address] 06/21/2023 2:30 PM EDT Office Visit Cardiology, [facility] 132 [facility] [place] [address] Hadley Molina MD 132 [facility] [address] 06/24/2023 11:00 AM EDT Office Visit Hematology/Oncology [facility] [address] [place] [address] Bouchra Juarez CRNP 400 [facility] [place] [address] 08/05/2023 1:00 PM EDT Nurse Only Ancillary [address] [place] [address] [place], Nurse Annual [address] [place] [address] 09/20/2023 8:00 AM EDT Laboratory Lab Mobile Phlebotomy [facility] [address] [place] [address] [facility], [facility] Mobile Home Draw [address] [place] [address] 09/24/2023 11:30 AM EDT Office Visit Nephrology, [facility] [address] [facility] [place] [address] ZemaitisKary PA-C [address] [facility] [place] [address] 12/20/2023 8:00 AM EDT Laboratory Lab Mobile Phlebotomy [facility] [address] [place] [address] [facility], [facility] Mobile Home Draw [address] [place] [address] 03/27/2024 8:00 AM EST Laboratory Lab Mobile Phlebotomy [facility] [address] [place], [place] [address] [facility], [facility] Mobile Home Draw [address] [place], [place] [address] Scheduled Procedures Name Priority Associated Diagnoses Date/Ti [...] Additional history exists CKD HGB USE SMARTSET 49786 03/06/202403/06, 03/06/2023, 12/19/2022, Additional history exists CKD PHOS USE SMARTSET 88899 03/21/2024 02/0 02/2023, 12/19/2022, 11/28/2022, Additional history [...] this encounter Medical Devices Implanted Type Area Developmental Mathematics Instructor Device Identifier Shelf Expiration Date Model / Serial / Lot Issue Suture Biocomposite - Sn/A - [id number] Implanted:Qty: 2 on 12/13/2021 by Moris Jimenez, DO at OR [facility] Left: Leg Lower [employer] 07/18/2024 [id number] / N/A / [id number] Vitoss Bbtrauma Foam Pack - [id number] - [id number] Implanted:Qty: 1 on 12/13/2021 by Moris Jimenez, DO at OR [facility] Left: Leg Lower MICHA : TRAUMA 01/15/2022 [id number] / [id number] / [id number] documented as of this encounter Advance Directives Latest Code Status on File Code Status Date Activated Date Inactivated Comments Full Code 12/12/2021 7:18 PM 12/20/2021 6:08 PM This order reflects the patients wishes and were consensually agreed upon. Question Answer Comments Discussion of Advance Directives occurred with: Patient Care Teams Molder Wax Ball Relationship Specialty Start Date End Date Shara Ray MD [address] [place] [address] [place] [address] PCP - General Family Medicine 03/08/23 documented as of this encounter
--- OUTSIDE RECORDS SUMMARY | 2023-07-10 17:35 | External Medical Summary | Summary of Care ---
Author Name Unknown Organization [facility] Address [address] [facility] [place] [address] Phone [phone] Care Team Providers Care Cigarette Book Maker Name Role Phone Shara Ray MD Primary Care Provide r Reason for Visit * Reason Comments [facility]: Maintenance Encounter Details Date Type Department Care Team (Late st Contact Info) Description 04/24/2023 10:00 AM EST [facility] Visit [facility], [facility] [address] [facility] [place] [address] Valentina Laws RN 132 [facility] [place] [address] Allergies Active Allergy Reactions Criticality Noted Date [...] as of this encounter (statuses as of 04/27/2023) Medications Medication Sig Dispensed Refills Start Date [...] 100 Tablet 0 02/07/2023 4 Active Nystatin 839674 UNIT/ML Mouth/Throat SuspensionIndication s:Thrush Swish and swallow [...] as of this encounter (statuses as of 04/27/2023) Active Problems Problem Noted Date Diagnosed Date [...] IM/IV Chest Xray Additional Comments: Followed by sports betting manager - Dr. Rashel Sales [facility] Closed nondisplaced fracture of left tibial tuberosity with routine healing 12/12/2021 Mild protein-calorie malnutrition 12/05/2021 Controlled substance agreement signed 12/05/2021 Hematoma of leg, left, subsequent encounter 09/2021 Overview: [facility] ER ulstrasound shows hematoma calf, [...] in the Comments) Remote Patient Monitoring Vendor: [facility] Device(s): Connected Scale Self - Management Plan [...] Plan: Symptoms well controlled on omeprazole terminal press operator current use of anticoagulant therapy 0 [...] as of this encounter (statuses as of 04/27/2023) Resolved Problems Problem Noted Date Diagnosed Date [...] Overview: Per CKD protocol #1 ORBIT-[employer] Research Other*[id number] 06/02/2010 04/18/2011 Overview: PROJECT: #[id number], SPONSOR: Aileen, PI: Adolfo De Jesus MD [...] can be closed. CONTACT: Roberto Carlos Huertas, Material Clerk Type 2 diabetes mellitus wit h hemoglobin [...] as of this encounter (statuses as of 04/27/2023) Immunizations Name Administration Dates Next Due COVID-19 mRNA, LNP-s, No Pre serve, 2-Dose Series (Moderna) 04/19/2020,03/22/2020 COVID-19, MRNA-LNP, 23-24, P F, 30 MCG/0.3 mL, 12 YRS AND ABOVE, IM (Offerti-Comirnaty) 12/03/2022 COVID-19, mRNA, LNP-s, PF, B ooster, [...] Sign Reading Time Taken Comments Blood Pressure 116/52 04/24/2023 10:19 AM EST Pulse 72 04/24/2023 10:19 AM EST Temperature 36.3 C (97.3 F) 04/24/2023 10:[address] Respiratory Rate 18 04/24/2023 10:19 AM EST Oxygen Saturation 98% 04/24/2023 10:19 AM EST Inhaled Oxygen Concentration - - Weight 64.5 kg (142 lb 3.2 oz) 04/24/2023 10:19 AM EST Height - - Body Mass Index 31.88 03/19/2023 1:02 PM EST documented in this [...] Progress Notes * Valentina Laws RN - 04/24/2023 8:56 AM EST Images from the original note were not included. [facility] Scraper Loader Operator Visit Date: 04/24/2023 Time: 9:30 AM Name: Abdi Bowling : 1955 Current Concerns: Patient seen for follow up- Afib, CHF, DM2, H/O falls Recent BMP - worsening kidney function. Nephrology appointment 05/09/23. Placed on renal diet. [facility] case loader operator referral sent per patient request 04/19/23. Weights stable- see below. Provider visit 2/14/24- Torsemide increased x 3 days. Follow up with Cardiology Dr. Molina as DTP ineffective 04/08/23- Fluid restriction 2L, Metolazone 5mg prior to Torsemide 04/09. Repeat BMP 04/10/23-GFR 22, Creat 2.3 04/17/23- GFR- 17 Creat 3.0 Torsemide held 04/18 and 04/19- per Dr. Sutton Repeat BMP today- results pending. Recent overnight pulse oximetry- Oxygen delivered to home this past Saturday- Wearing oxgyen at 2Lvia n/c at HS and during day. VS wnl Lungs clear bilaterally Sob with exertion No LE edema noted Voiding without difficulty Bowels wnl- per report Appetite good Taking fluids well. Problems/Symptoms: Review of Systems Constitutional: Negative. HENT: Negative. Eyes: Negative. Respiratory: Positive for shortness of breath. Cardiovascular: Negative. Gastrointestinal: Negative. Endocrine: Negative. Genitourinary: Negative. Musculoskeletal: Positive for gait problem. Skin: Negative. Hematological: Negative. Psychiatric/Behavioral: Negative. Physical Exam: BP 116/52 (BP Site: Left Arm, BP Position: Sitting, BP Cuff Size: Regular) | Pulse 72 | Temp 36.3 C (97.3 F) (Tympanic) | Resp 18 | Wt 64.5 kg (142 lb 3.2 oz) | SpO2 98% | BMI 31.88 kg/m | BSA 1.6 m Pain 7 Physical Exam Constitutional: Appearance: Normal appearance. Cardiovascular: Rate and Rhythm: Normal rate. Rhythm irregular. Pulses: Normal pulses. Pulmonary: Effort: Pulmonary effort is normal. Breath sounds: Normal breath sounds. Abdominal: General: Bowel sounds are normal. Palpations: Abdomen is soft. Musculoskeletal: General: Normal range of motion. Skin: General: Skin is warm and dry. Capillary Refill: Capillary refill takes 2 to 3 seconds. Neurological: General: No focal deficit present. Mental Status: She is alert and oriented to person, place, and time. Psychiatric: Mood and Affect: Mood normal. Behavior: Behavior normal. [facility] Completed this Visit: No. Routine visit Treatment/Plan: Follow up with Nephrology Weigh daily- [facility] scales Encouraged to take BP daily x 2 weeks Continue medications as prescribed Keep all upcoming MD appointments Fall precautions Low na diet Oxygen at HS RN CM follow up in 3 weeks Home Interventions Provided: Reinforced current Plan of Care, including self-management and medication regimen Patient's Goals of Care: Stay out of the hospital Want to go to the [employer] games this year Pain control Get my kidneys straightened out. Patient's 'Red Flags': Falls Increase swelling LE, Increase SOB Weight gain 2-3lb/day or 3-5 lb week Patient Needs to Remember: Call [facility] with any medical concerns/ red flags Referrals Needed: N/a Follow Up: Is there cellular connectivity/connectivity in the home? Yes Does the patient have internet in the home? Yes Patient encouraged to call the intake phone number for all urgent but not emergent issues. Scheduled to follow up with patient in 3 weeks. Valentina Stallworth RN 04/24/2023 9:30 AM documented in this encounter Plan of Treatment Upcoming Encounters Date Type Department Care Team (Late st Contact Info) Description 05/01/2023 9:40 AM EDT Laboratory Lab Mobile Phlebotomy [facility] [address] [place] [address] c, [facility] Mobile Home Draw [address] [place] [address] 05/02/2023 6:00 AM EDT Anticoagulation Pharmacy Call Center [address] [place] [address] [facility] [address] [place] [address] 05/09/2023 1:00 PM EDT Office Visit Nephrology [address] [place] [address] Aliyah Lacey MD [address] [place] [address] [place] [address] 05/14/2023 4:00 PM EDT Home Visit [facility], [facility] [address] [facility] [place] [address] Valentina Laws, RN 132 [facility] [place] [address] 06/04/2023 1:30 PM EDT Office Visit Allergy/Immunology [facility] 200 [facility] [place] [address] Macario Pathak MD [address] [facility] [place] [address] 06/10/2023 12:20 PM EDT Office Visit Family Medicine [address] [place] [phone] Shara Ray MD [address] [place] [address] [place] [address] 06/21/2023 8:00 AM EDT Laboratory Lab Mobile [facility]botomy [facility] [address] [place] [address] [facility], [facility] Mobile Home Draw [address] [place] [address] 06/21/2023 2:30 PM EDT Office Visit Cardiology, [facility] [address] [place] [address] Haldey Molina MD [address] [facility] [place] [address] 06/24/2023 11:00 AM EDT Office Visit Hematology/Oncology [facility] [address] [facility] [place] [phone] Bouchra Del Cid CRNP [address] [place] [address] [place] [address] 08/05/2023 1:00 PM EDT Nurse Only Ancillary [address] [place] [address] Andriy, Nurse [address] [place] [address] 09/20/2023 8:00 AM EDT Laboratory Lab Mobile Phlebotomy [facility] [address] [place] [address] [facility], [facility] Mobile Home Draw [address] [place] [address] 09/24/2023 11:30 AM EDT Office Visit Nephrology, [facility] 200 [facility] [address] ZeKary bliss PA-C [address] [facility] [address] 12/20/2023 8:00 AM EDT Laboratory Lab Mobile Phlebotomy [facility] [address] [place] [address] [facility], [facility] Mobile Home Draw [address] [place] [address] 03/27/2024 8:00 AM EST Laboratory Lab Mobile Phlebotomy [facility] [address] [place] [address] [facility], [facility] Mobile Home Draw [address] [place] [address] Scheduled Procedures Name Priority Associated Diagnoses Date/Ti [...] Additional history exists CKD HGB USE SMARTSET 79918 03/06/202403/06, 03/06/2023, 12/19/2022, Additional history exists CKD PHOS USE SMARTSET 69746 03/21/2024 02/0 02/2023, 12/19/2022, 11/28/2022, Additional history [...] this encounter Medical Devices Implanted Type Area Private Client Advisor Device Identifier Shelf Expiration Date Model / Serial / Lot [place] Suture Biocomposite - Sn/A - [id number] Implanted:Qty: 2 on 12/13/2021 by Moris Jimenez DO at OR [facility] Left: Leg Lower [employer] 07/18/2024 [id number] / N/A / [id number] Vitoss Bbtrauma Foam Pack - [id number] - [id number] Implanted:Qty: 1 on 12/13/2021 by Moris Jimenez, DO at OR [facility] Left: Leg Lower MICHA : TRAUMA 01/15/20221129-7490 / [id number] / [id number] documented as of this encounter Advance Directives Latest Code Status on File Code Status Date Activated Date Inactivated Comments Full Code 12/12/2021 7:18 PM 12/20/2021 6:08 PM This order reflects the patients wishes and were consensually agreed upon. Question Answer Comments Discussion of Advance Directives occurred with: Patient Care Teams Cigarette Book Maker Relationship Specialty Start Date End Date Shara Ray MD [address] [place] [address] [place] [phone] PCP - General Family Medicine 03/08/23 documented as of this encounter
--- OUTSIDE RECORDS SUMMARY | 2023-07-10 17:36 | External Medical Summary | Summary of Care ---
Author Name Unknown Organization [facility] Address [address] [facility] [place] [address] Phone [phone] Care Team Providers Care Analytical Lab Technician Name Role Phone Shara Ray MD Primary Care Provide r Reason for Visit * Reason Onset Date Comments Test Results 04/25/2023 Encounter Details Date Type Department Care Team (Late st Contact Info) Description 04/25/2023 Telephone Cardiology, [facility] [address] [place] [address] Hadley Molina MD [address] [place] [address] Test Results Allergies Active Allergy Reactions Criticality [...] as of this encounter (statuses as of 04/25/2023) Medications Medication Sig Dispensed Refills Start Date [...] as needed 50 mL 0 12/06/2022 Active Torsemide 100 MG Oral Tablet (Demadex)Indication s:Varicose veins of both legs with edema Take 1 Tablet by mouth in the morning. 100 Tablet 1 12/06/2022 Active Spironolactone 25 MG Oral Tablet [...] 200 Tablet 1 02/05/2023 02/05/20 24 Active Rosuvastatin Calcium 20 MG Oral Tablet (Crestor)Indication s:Dyslipidemia, goal LDL below 100,Hyperlipidemia with target LDL less than 100 TAKE ONE TABLET BY MOUTH AT BEDTIME 100 Tablet 0 02/07/2023 02/07/20 24 Active Nystatin 599236 UNIT/ML Mouth/Throat SuspensionIndicatio ns:Thrush Swish and swallow [...] by mouth daily as directed by [facility] 180 Tablet 3 03/06/2023 Active Nitroglycerin [...] days directed 12 Tablet 5 04/08/2023 Active Losartan Potassium 25 MG Oral Tablet (Cozaar)Indications :Hypertensive heart and kidney disease with chronic diastolic congestive heart failure and stage 3b chronic kidney disease (HCC) Take 1 Tablet by mouth in the morning. 90 Tablet 3 03/28/2023 04/25/19 24 Discontinu ed(Medicat ion List Clean Up) documented as of this encounter (statuses as of 04/25/2023) Active Problems Problem Noted Date Diagnosed Date Major depressive disorder, recurrent, moderate 0 04/03/2023 Last Assessment & Plan: Mood stable on current dose celexa Other persistent atrial fibrillation 04/03/2023 Last Assessment & Plan: Rate controlled Continue coumadin Atherosclerosis of [place] co ronary artery without angina pectoris 04/03/2023 [...] IM/IV Chest Xray Additional Comments: Followed by loader helper - Dr. Rashel Sales [facility] Closed nondisplaced fracture of left tibial tuberosity with routine healing 12/12/2021 Mild protein-calorie malnutrition 12/05/2021 Controlled substance agreement signed 12/05/2021 Hematoma of leg, left, subsequent encounter 09/2021 Overview: [facility] ER ulstrasound shows hematoma calf, INR 4.2, [...] & Plan: Symptoms well controlled on omeprazole sausage tier current use of anticoagulant therapy 0 05/10/2004 Overview: ICD-10 update of inactive term Rheumatic heart disease 03/05/2002 Old myocardial infarct 01/02/2001 Last Assessment & Plan: Continue Crestor 20 mg daily S/P mitral valve replacement Last Assessment & Plan: Chronic AC coumadin Atherosclerosis of [place] co ronary artery of [place] heart without angina pectoris documented as of this encounter (statuses as of 04/25/2023) Resolved Problems Problem Noted Date Diagnosed Date [...] Overview: Per CKD protocol #1 ORBIT-AF Research Other*[id number] 06/02/2010 04/18/2011 Overview: PROJECT: #[id number], SPONSOR: Aileen, PI: Adolfo De Jesus MD [...] can be closed. CONTACT: Roberto Carlos Huertas, Poultry And Fish Butcher Type 2 diabetes mellitus wit h hemoglobin A1c goal of less than 7.0% 04/24/2010 08/29/2018 Overview: ICD-10 update of inactive term ACTIVE CASE MANAGEMENT Kassie Anthony RN [phone] 05/10/19 10 12/05/2009 ADVANCE DIRECTIVE INFORMATION 05/09/2009 [...] as of this encounter (statuses as of 04/25/2023) Immunizations Name Administration Dates Next Due COVID-19 [...] Telephone Encounter - Wing Mahmood RN - 04/25/2023 1:47 PM EST Called and spoke tot he patient and reviewed the message with her from Dr. Molina in regards other lab work and medications. She stated she understood. She is requesting a "My G" message also be sent and complied. * Telephone Encounter - Wing Mahmood RN - 04/25/2023 1:46 PM EST ----- Message from Hadley Molina MD sent at 04/25/2023 11:33 AM EST ----- Renal function shows further worsening of kidney function. Stop losartan Keep appointment with Nephrology No metolazone or torsemide Report weight gain documented in this encounter Plan of Treatment Upcoming Encounters Date Type Department Care Team (Late st Contact Info) Description 05/01/2023 9:40 AM EDT Laboratory Lab Mobile Phlebotomy [facility] [address] [place] [address] [facility] Mobile Home Draw [address] [place], [place] [id number] 05/02/2023 6:00 AM EDT Anticoagulation Pharmacy Call Center [address] [place] [address] [facility], [facility] [address] [place] [address] 05/09/2023 1:00 PM EDT Office Visit Nephrology [address] [place] [address] Aliyah Lacey MD 200 [facility] [place] [address] 05/14/2023 4:00 PM EDT [facility], [facility] 132 [facility] [place] [address] Valentina Laws, TANISHA 132 [facility] [place] [address] 06/04/2023 1:30 PM EDT [facility] 200 [facility] [place] [address] Macario Pathak MD 200 [facility] [place] [address] 06/10/2023 12:20 PM EDT Office Visit Family Medicine [address] [place] [address] Shara Ray MD [address] [place] [address] [place] [address] 06/21/2023 8:00 AM EDT Laboratory Lab Mobile Phlebotomy [facility] [address] [place] [address] [facility] Mobile Home Draw [address] [place] [address] 06/21/2023 2:30 PM EDT Office Visit Cardiology, [facility] 132 [facility] [place] [address] Hadley Molina MD 132 [facility] [place] [address] 06/24/2023 11:00 AM EDT Office Visit Hematology/Oncology [facility] 200 [facility] [place] [phone] Bouchra Del Cid CRNP [address] [place] [address] 08/05/2023 1:00 PM EDT Nurse Only Ancillary [address] [place] [address] [place], Nurse [address] [place] [address] 09/20/2023 8:00 AM EDT Laboratory Lab Mobile Phlebotomy [facility] [address] [place] [address] [facility] Mobile Home Draw [address] [place] [address] 09/24/2023 11:30 AM EDT Office Visit Nephrology, [facility] 200 [facility] [place] [address] Kary Pena PA-C 200 [facility] [place] [address] 12/20/2023 8:00 AM EDT Laboratory Lab Mobile Phlebotomy [place] [address] [place] [address] [facility] Mobile Home Draw [address] [place] [address] 03/27/2024 8:00 AM EST Laboratory Lab Mobile Phlebotomy [facility] [address] [place] [address] [facility] Mobile Home Draw [address] [place] [address] Scheduled Procedures Name Priority Associated Diagnoses Date/Ti [...] Additional history exists CKD HGB USE SMARTSET 52989 03/06/202403/06, 03/06/2023, 12/19/2022, Additional history exists CKD PHOS USE SMARTSET 76721 03/21/2024 02/0 02/2023, 12/19/2022, 11/28/2022, Additional history [...] this encounter Medical Devices Implanted Type Area Celery Stripper Device Identifier Shelf Expiration Date Model / Serial / Lot [place] Suture Biocomposite - Sn/A - [id number] Implanted:Qty: 2 on 12/13/2021 by Moris Jimenez, DO at OR [facility] Left: Leg Lower [employer] 07/18/2024 AR-[id number] / N/A / [id number] Vitoss Bbtrauma Foam Pack - [id number] - [id number] Implanted:Qty: 1 on 12/13/2021 by Moris Jimenez, DO at OR [facility] Left: Leg Lower MICHA : TRAUMA 01/15/2022 / [id number] / [id number] documented as of this encounter Advance Directives Latest Code Status on File Code Status Date Activated Date Inactivated Comments Full Code 12/12/2021 7:18 PM 12/20/2021 6:08 PM This order reflects the patients wishes and were consensually agreed upon. Question Answer Comments Discussion of Advance Directives occurred with: Patient Care Teams Analytical Lab Technician Relationship Specialty Start Date End Date Shara Ray MD [address] [place] [address] [place] [phone] PCP - General Family Medicine 03/08/23 documented as of this encounter
--- OUTSIDE RECORDS SUMMARY | 2023-07-10 17:37 | External Medical Summary ---
Author Name Unknown Address Unknown Organization K01:LABORATORY [facility] - [address] [facility] [address] Laboratory Report Ordering Provider Test Date Status CHERIE VILLAR 04/24/2023 11:27:00 Final Observation Date Value Abnormality Reference (Units ) Status HbA1C 04/24/2023 11:27:00 7.3 Above high normal 4. 0-5.6 (%) Final The use of HbA1c to monitor glycemic status is based on normal hemoglobin and HbA composition. This test should not be used in patients with abnormal hemoglobin that affects the half life of the red blood cell or the in vivo glycation rates. Glucose, estimated average 04/24/2023 11:27:00 163 Above high normal <126 (mg/dL) Dallin marino Performing Location LABORATORY [facility] - [address] [facility] [address]
--- OUTSIDE RECORDS SUMMARY | 2023-07-10 17:37 | External Medical Summary ---
Author Name Unknown Address Unknown Organization K01:LABOR[facility] - [facility] [address] [facility] [address] [address] Laboratory Report Ordering Provider Test Date Status TOÑA HONG 04/24/2023 11:27:00 Final Observation Date Value Abnormality Reference (Units ) Status BUN 04/24/2023 11:27:00 81 Above high normal 6-20 (mg/dL) Final Creatinine 04/24/2023 11:27:00 3.7 Above high normal 0.5-1.0 (mg/dL) Final Glomerular filtration rate/1.73 sq M.predicted [Volume Rate/Area] in Serum, Plasma or Blood by Creatinine-based formula (CKD-EPI) 04/24/2023 11:27:00 13 Below low normal >=60 (mL/min) Final eGFR is calculated based on the CKD-EPI 2020 equation SODIUM 04/24/2023 11:27:00 134 Below low normal 135 -146 (mmol/L) Final Potassium 04/24/2023 11:27:00 3.9 3.5-5.1 (m mol/L) Final Cl 04/24/2023 11:27:00 97 Below low normal 98- 107 (mmol/L) Final CO2 04/24/2023 11:27:00 23 22-32 (mmo l/L) Final Anion gap 04/24/2023 11:27:00 14 7-15 (mmol /L) Final Glucose 04/24/2023 11:27:00 216 Above high normal 70 -120 (mg/dL) Final Calcium 04/24/2023 11:27:00 10.0 8.4-10.2 ( mg/dL) Final Performing Location LABORATORY [facility] - [address] [place] [address]
--- OUTSIDE RECORDS SUMMARY | 2023-07-10 17:37 | External Medical Summary | Summary of Care ---
Author Name Unknown Organization [facility] Address [address] [facility] [place] [address] Phone [phone] Care Team Providers Care Timers Inspector Name Role Phone Shara Ray MD Primary Care Provide r Reason for Visit * Reason Comments Dosage Adjustment Via Phone (anticoag Cl inic) Encounter Details Date Type Department Care Team (Latest Contact Info) Description 04/25/2023 6:00 AM EST Anticoagulation Pharmacy Call Center [phone] [place] [address] [facility] 58 60 [facility] [place] [address] shelter current use of anticoagulant therapy*; History of [...] 12/06/2022 Active Torsemide 100 MG Oral Tablet (Demadex)Indications :Varicose veins of both legs with edema Take [...] 100 Tablet 0 02/07/2023 4 Active Nystatin 411717 UNIT/ML Mouth/Throat SuspensionIndication s:Thrush Swish and swallow [...] tablets by mouth daily as directed by [facility] 180 Tablet 3 03/06/2023 Active Nitroglycerin 0.4 [...] or wheezing 1080 mL 2 03/25/2023 Active Losartan Potassium 25 MG Oral Tablet (Cozaar)Indications: Hypertensive heart and kidney disease with chronic diastolic congestive heart failure and stage 3b chronic kidney disease (HCC) Take 1 Tablet by mouth in the morning. 90 Tablet 3 03/28/2023 Active Citalopram Hydrobromide 10 MG Oral Tablet [...] IM/IV Chest Xray Additional Comments: Followed by acct exec - Dr. Rashel Sales [facility] Closed nondisplaced fracture of left tibial tuberosity with routine healing 12/12/2021 Mild protein-calorie malnutrition 12/05/2021 Controlled substance agreement signed 12/05/2021 Hematoma of leg, left, subsequent encounter 09/2021 Overview: [facility] ER ulstrasound shows hematoma calf, [...] & Plan: Symptoms well controlled on omeprazole shelter current use of anticoagulant therapy 0 05/10/2004 [...] Overview: Per CKD protocol #1 ORBIT-AF Research Other*[id number] 06/02/2010 04/18/2011 Overview: PROJECT: #[id number], SPONSOR: Aileen, PI: Adolfo De Jesus MD [...] be closed. CONTACT: Roberto Carlos Huertas, Medical Cash Poster Type 2 diabetes mellitus wit h hemoglobin A1c goal of less than 7.0% 04/24/2010 08/29/2018 Overview: ICD-10 update of inactive term ACTIVE CASE MANAGEMENT Kassie Anthony RN [phone] 05/10/19 10 12/05/2009 ADVANCE DIRECTIVE INFORMATION 05/09/2009 [...] as of this encounter Progress Notes * Avelina Torres vascular technologist sonographer - 04/25/2023 11:43 AM EST Contacts Type Contact Phone/Fax 04/25/2023 11:39 AM EST Phone (Outgoing) Abdi Bowling (Self) [phone] (M) Spoke to Patient Subjective Patient Findings [...] communicated as noted by Pharmacist: Yes GORGE PHAM 04/25/2023, 11:43 AM * Harry Villagomez RPh - 04/25/2023 8:38 AM EST Images from the original note were not included. Coumadin Clinic (region specific) Objective Current Warfarin Dose As of 04/25/2023 Warfarin maintenance plan: 5 mg (2.5 mg x 2) every Tue, Fri; 3.75 mg (2.5 mg x 1.5) all other days INR Result As of 04/25/2023 INR goal: 3.0-3.5 INR used for dosin.8 (04/24/2023) Assessment & Plan Warfarin Plan As of 04/25/2023 Full warfarin instructions: 04/24: 2.5 mg; Otherwise 5 mg every Tue, Fri; 3.75 mg all other days Next INR check: 05/01/2023 My G Sent Repeat PT/INR in 1 week(s) Weekly dose: not changed Additional Dosing Information: Description [facility] Mona, ramsey Shepard ([facility], or [facility]) Please also send [employer] to contact patient with dose instructions as noted. Harry Villagomez RPh 04/25/2023, 8:38 AM documented in this encounter Plan of Treatment Upcoming Encounters Date Type Department Care Team (Late st Contact Info) Description 05/01/2023 9:40 AM EDT Laboratory Lab [place] [facility] [place] [address] [place] [address] [facility] Mobile Home Draw [address] [place] [address] 05/09/2023 1:00 PM EDT Office Visit Nephrology [address] [place] [phone] Aliyah Lacey MD [address] [place] [address] [place] [address] 05/14/2023 4:00 PM EDT [facility] Visit [facility] [address] [place] [address] Valentina Laws RN 132 [facility] [place] [address] 06/04/2023 1:30 PM EDT Office Visit Allergy/Immunology [facility] [address] [place] [address] Macario Pathak MD [address] [place] [address] 06/10/2023 12:20 PM EDT Office Visit Family Medicine [address] [phone] Shara Ray MD [address] [place] [address] [place] [address] 06/21/2023 8:00 AM EDT Laboratory Lab [place] [facility] [place] [address] [place] [address] [facility] Mobile Home Draw [address] [place] [address] 06/21/2023 2:30 PM EDT Office Visit Cardiology, [facility] [address] [facility] [place] [address] Hadley Molina MD 132 [facility] [place] [address] 06/24/2023 11:00 AM EDT Office Visit Hematology/Oncology [facility] [address] [place] [phone] Bouchra Del Cid CRNP [address] [facility] [place] [address] 08/05/2023 1:00 PM EDT Nurse Only Ancillary [address] [place] [address] Andriy, Nurse [address] [place] [address] 09/20/2023 8:00 AM EDT Laboratory Lab [place] [facility] [place] [address] [place] [address] [facility] Mobile Home Draw [address] [place] [address] 09/24/2023 11:30 AM EDT Office Visit Nephrology, [facility] [address] [facility] [place] [address] ZeKary bliss PA-C [address] [facility] [address] [place] [address] 12/20/2023 8:00 AM EDT Laboratory Lab Mobile Phlebotomy [facility] [place] [address] [place] [address] [facility] Mobile Home Draw [address] [place] [address] 03/27/2024 8:00 AM EST Laboratory Lab Mobile Phlebotomy [facility] [place] [address] [place] [address] [facility] Mobile Home Draw [address] [place] [address] Scheduled Procedures Name Priority Associated Diagnoses Date/Ti [...] Additional history exists CKD HGB USE SMARTSET 18479 03/06/202403/06, 03/06/2023, 12/19/2022, Additional history exists CKD PHOS USE SMARTSET 01979 03/21/2024 02/0 02/2023, 12/19/2022, 11/28/2022, Additional history [...] this encounter Medical Devices Implanted Type Area Sharepoint Solutions Architect Device Identifier Shelf Expiration Date Model / Serial / Lot Agate Suture Biocomposite - Sn/A - [id number] Implanted:Qty: 2 on 12/13/2021 by Moris Jimenez DO at OR [facility] Left: Leg Lower [employer] 07/18/2024 [id number] / N/A / [id number] Vitoss Bbtrauma Foam Pack - [id number] - [id number] Implanted:Qty: 1 on 12/13/2021 by Moris Jimenez DO at OR [facility] Left: Leg Lower MICHA : TRAUMA 01/15/20225376-9477 / [id number] / [id number] documented as of this encounter Visit Diagnoses 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
--- OUTSIDE RECORDS SUMMARY | 2023-07-10 17:38 | External Medical Summary ---
Author Name Unknown Address Unknown Organization K01:[facility] [place] - [address] [place] [address] Laboratory Report Ordering Provider Test Date Status SONIA PANTOJA 04/24/2023 11:27:00 Final Standing order for pt/inr. < br/>Please draw pt/inr every 1 to 4 weeks as requested.
Results to [facility]ticoagulation [facility]

Warfarin Therapy
INR: 2.0-3.0 conventional anticoagulation
INR: 2.5-3.5 high intensity anticoagulation Observation Date Value Abnormality Reference (Units ) Status PT 04/24/2023 11:27:00 37.9 Above high normal 11 .6-15.2 (seconds) Final INR 04/24/2023 11:27:00 3.8 Above high normal 0. 8-1.2 Final Performing Location [facility] [place] - [address] [place] [address]
--- OUTSIDE RECORDS SUMMARY | 2023-07-10 17:39 | External Medical Summary | Summary of Care ---
Author Name Unknown Organization [facility] Address [address] [facility] [place] [address] Phone [phone] Care Team Providers Care Passenger Service Agent Name Role Phone Shara Ray MD Primary Care Provide r Reason for Visit * Reason Onset Date Comments Follow Up 04/19/2023 Encounter Details Date Type Department Care Team (Late st Contact Info) Description 04/19/2023 Telephone [facility], [facility] [address] [place] [address] Valentnia Laws RN [address] [place] [address] Follow Up Allergies Active Allergy Reactions Criticality [...] as of this encounter (statuses as of 04/19/2023) Medications Medication Sig Dispensed Refills Start Date [...] 100 Tablet 0 02/07/2023 4 Active Nystatin 544718 UNIT/ML Mouth/Throat SuspensionIndication s:Thrush Swish and swallow [...] tablets by mouth daily as directed by [facility] 180 Tablet 3 03/06/2023 Active Nitroglycerin [...] as of this encounter (statuses as of 04/19/2023) Active Problems Problem Noted Date Diagnosed Date Major depressive disorder, recurrent, moderate 0 04/03/2023 Last Assessment & Plan: Mood stable on current dose celexa Other persistent atrial fibrillation 04/03/2023 Last Assessment & Plan: Rate controlled Continue coumadin Atherosclerosis of [place] co ronary artery without angina pectoris 04/03/2023 [...] IM/IV Chest Xray Additional Comments: Followed by medical staff assistant - Dr. Rashel Sales [facility] Closed nondisplaced fracture of left tibial tuberosity [...] the Comments) Remote Patient Monitoring Vendor: [facility] Device(s): Connected Scale Self - Management Plan [...] Status post bilateral knee replacements 01/28/20 19 Tachy-asmmi syndrome 02/14/2018 Permanent atrial fibrillation 12/18/2017 Last [...] & Plan: Chronic AC coumadin Atherosclerosis of [place] ronary artery of [place] heart without angina pectoris documented as of this encounter (statuses as of 04/19/2023) Resolved Problems Problem Noted Date Diagnosed Date [...] Overview: Per CKD protocol #1 ORBIT-AF Research Other*[id number] 06/02/2010 04/18/2011 Overview: PROJECT: #[id number], SPONSOR: Geovanna&Geovanna, PI: Adolfo De Jesus MD [...] can be closed. CONTACT: Roberto Carlos Huertas, Chemical Handler Type 2 diabetes mellitus wit h hemoglobin A1c goal of less than 7.0% 04/24/2010 08/29/2018 Overview: ICD-10 update of inactive term ACTIVE CASE MANAGEMENT Kassie Anthony RN [phone] 05/10/19 10 12/05/2009 ADVANCE DIRECTIVE INFORMATION 05/09/2009 [...] as of this encounter (statuses as of 04/19/2023) Immunizations Name Administration Dates Next Due COVID-19 mRNA, LNP-s, No Pre serve, 2-Dose Series (Moderna) 04/19/2020,03/22/2020 COVID-19, MRNA-LNP, 23-24, P F, 30 MCG/0.3 mL, 12 YRS AND ABOVE, IM [facility] 12/03/2022 COVID-19, mRNA, LNP-s, PF, B ooster, [...] Telephone Encounter - Valentina Laws RN - 04/19/2023 4:58 PM EST Received call from patient reporting she has had some kidney issues and has been placed on renal diet. Requesting technical applications specialist referral to assist with renal diet teaching. documented in this encounter Plan of Treatment Upcoming Encounters Date Type Department Care Team (Late st Contact Info) Description 04/24/2023 9:30 AM EST Laboratory Lab [place] [facility] [place] [address] [place] [address] [facility] Mobile Home Draw [address] [place] [address] 04/24/2023 10:00 AM EST Home Visit [facility] [address] [place] [address] Valentina Laws RN [address] [place] [address] 04/25/2023 6:00 AM EST Anticoagulation Pharmacy Call Center WB [phone] [facility] [place] [address] Cc[facility], [facility] 58 60 [facility] [address] 05/09/2023 1:00 PM EDT Office Visit Nephrology [address] [place] [address] Aliyah Lacey MD [address] [place] [address] 06/04/2023 1:30 PM EDT Office Visit Allergy/Immunology [facility] [address] [place] [address] Macario Pathak MD [address] [place] [address] 06/10/2023 12:20 PM EDT Office Visit Family Medicine [address] [place] [phone] Shara Ray MD [address] [place] [address] [place] [address] 06/21/2023 8:00 AM EDT Laboratory Lab [place] [facility] [place] [address] [place], [place] [phone] [facility] Mobile Home Draw [address] [place], [place] [phone] 06/21/2023 2:30 PM EDT Office Visit Cardiology, [facility] [place] [address] Hadley Molina MD [address] [place] [address] 06/24/2023 11:00 AM EDT Office Visit Hematology/Oncology [facility] [place] [address] [place] [phone] Bouchra Del Cid, SHELVER [address] [facility] [place] [address] 08/05/2023 1:00 PM EDT Nurse Only Ancillary [address] [place] [address] [place], Nurse [address] [place] [address] 09/20/2023 8:00 AM EDT Laboratory Lab [place] [facility] [place] [address] [place] [address] [facility], [facility] Mobile Home Draw [address] [place] [address] 09/24/2023 11:30 AM EDT Office Visit Nephrology, [facility] 200 [facility] [place] [address] ZeKary bliss PA-C 200 [facility] [place] [address] 12/20/2023 8:00 AM EDT Laboratory Lab [place] [facility] [place] [address] [place] [address] [facility], [facility] Mobile Home Draw [address] [place] [address] 03/27/2024 8:00 AM EST Laboratory Lab Mobile [place] [facility] [place] [address] [place] [address] [facility], [facility] Mobile Home Draw [address] [place] [address] Scheduled Procedures Name Priority Associated Diagnoses Date/Ti me COLONOSCOPY FLEXIBLE PROXIMAL DIAGNOSTIC Recall Screen for colon cancer Health Maintenance Due Date Last Done Comments Alpha-1 Antitrypsin 07/29/1971 *COPD SEVERITY VERIFIED BY PFT 08/24/2021 COLONOSCOPY-EVERY 3 YRS AGES 18-100 02/23/2023 02/24/2020, 02/24/2020, 07/16/2013, Additional history exists HbA1c 05/30/2023 11/28/2022, 05/19, 12/13/2021, Additional history exists TSH 05/31/2023 05/30/2022, 06/18, 06/28/2020, Additional history exists Depression Screening 07/31/2023 07/30/2022 Diabetic Eye Exam 07/31/2023 07/30/2022, , 12/27/2020, Additional history exists Diabetic Foot Exam 07/31/2023 07/30/2022, 0 09/02/2019, 08/29/2018, Additional history exists GFR 10/16/2023 04/17/2023, 03/22, 04/03/2023, Additional history exists Mammogram 11/16/2023 11/15/2022, 10/20, 07/03/2021, Additional history exists Albumin/Creatinine Ratio 12/04/2023 023, 02/05/2022, 01/26/2021, Additional history exists CKD HGB USE SMARTSET 89355 03/06/202403/06, 03/06/2023, 12/19/2022, Additional history exists CKD PHOS USE SMARTSET 35059 03/21/2024 02/0 02/2023, 12/19/2022, 11/28/2022, Additional history exists O2 ASSESSMENT COMPLETED IN PAST YEAR FOR COPD 04/03/2024 04/03/2023 DTaP,Tdap,and Td Vaccines (3 - Td or [...] encounter Medical Devices Implanted Type Area Senior Systems Engineer Device Identifier Shelf Expiration Date Model / Serial / Lot [place] Suture Biocomposite - Sn/A - [id number] Implanted:Qty: 2 on 12/13/2021 by Moris Jimenez, DO at OR [facility] Left: Leg Lower [employer] 07/18/2024 AR-[id number] / N/A / [id number] Vitoss Bbtrauma Foam Pack - [id number] - [id number] Implanted:Qty: 1 on 12/13/2021 by Moris Jimenez, DO at OR [facility] Left: Leg Lower MICHA : TRAUMA 01/15/20227911-4647 / [id number] / [id number] documented as of this encounter Visit Diagnoses [...] Advance Directives occurred with: Patient Care Teams Passenger Service Agent Relationship Specialty Start Date End Date Shara Ray MD [address] [place] [address] [place] [phone] PCP - General Family Medicine 03/08/23 documented as of this encounter
--- OUTSIDE RECORDS SUMMARY | 2023-07-10 17:39 | External Medical Summary | Summary of Care ---
Author Name Unknown Organization [facility] Address [address] [facility] [place] [address] Phone [phone] Care Team Providers Care Social Media Job Titles Name Role Phone Shara Ray MD Primary Care Provide r Reason for Visit * Reason Onset Date Comments Test Results 04/22/2023 Encounter Details Date Type Department Care Team (Late st Contact Info) Description 04/22/2023 Telephone Cardiology, [facility] [address] [place] [address] Hadley Molina MD [address] [place] [address] Test Results Allergies Active Allergy Reactions Criticality [...] as of this encounter (statuses as of 04/22/2023) Medications Medication Sig Dispensed Refills Start Date [...] 100 Tablet 0 02/07/2023 4 Active Nystatin 125771 UNIT/ML Mouth/Throat SuspensionIndication s:Thrush Swish and swallow [...] tablets by mouth daily as directed by [facility] 180 Tablet 3 03/06/2023 Active Nitroglycerin [...] as of this encounter (statuses as of 04/22/2023) Active Problems Problem Noted Date Diagnosed Date Major depressive disorder, recurrent, moderate 0 04/03/2023 Last Assessment & Plan: Mood stable on current dose celexa Other persistent atrial fibrillation 04/03/2023 Last Assessment & Plan: Rate controlled Continue coumadin Atherosclerosis of [place] co 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 Rashel Sales [facility] Closed nondisplaced fracture of left tibial tuberosity with routine healing 12/12/2021 Mild protein-calorie malnutrition 12/05/2021 Controlled substance agreement signed 12/05/2021 Hematoma of leg, left, subsequent encounter 09/2021 Overview: [facility] ER ulstrasound shows hematoma calf, [...] in the Comments) Remote Patient Monitoring Vendor: [facility] Device(s): Connected Scale Self - Management Plan [...] & Plan: Chronic AC coumadin Atherosclerosis of [place] co ronary artery of [place] heart without angina pectoris documented as of this encounter (statuses as of 04/22/2023) Resolved Problems Problem Noted Date Diagnosed Date [...] Overview: Per CKD protocol #1 ORBIT-[employer] Research Other*[id number] 06/02/2010 04/18/2011 Overview: PROJECT: #[id number], SPONSOR: [employer], PI: Adolfo De Jesus MD [...] can be closed. CONTACT: Roberto Carlos Huertas, Linux Vmware Administrator Type 2 diabetes mellitus wit h [...] as of this encounter (statuses as of 04/22/2023) Immunizations Name Administration Dates Next Due COVID-19 [...] Telephone Encounter - Sarah Argueta CMA - 04/22/2023 11:49 AM EST My g sent. * Telephone Encounter - Sarah Argueta CMA - 04/22/2023 11:48 AM EST ----- Message from Hadley Molina MD sent at 04/20/2023 3:06 PM EST ----- No significant change from prior study, good documented in this encounter Plan of Treatment Upcoming Encounters Date Type Department Care Team (Late st Contact Info) Description 04/23/2023 1:00 PM EST Scheduled Telephone [facility] [place], [facility] [address] [facility] [place] [address] Vee Santacruz, RDN [address] [facility] [place] [address] 04/24/2023 9:30 AM EST Laboratory Lab [facility] [place] [place] [address] [place] [address] [facility] Mobile Home Draw [address] [place] [address] 04/24/2023 10:00 AM EST [facility], [facility] 132 [facility] [address] Valentina Laws, TANISHA 132 [facility] [place] [address] 04/25/2023 6:00 AM EST Anticoagulation Pharmacy Call Center WB 58-60 [facility] [place] [address] Ccps, [facility] 58 60 [facility] [place] [address] 05/09/2023 1:00 PM EDT Office Visit Nephrology [address] [place] [address] Aliyah Lacey MD 200 [place] [address] 06/04/2023 1:30 PM EDT Office Visit Allergy/Immunology [facility] [place] [address] [place] [address] Macario Pathak MD [address] [place] [address] 06/10/2023 12:20 PM EDT Office Visit Family Medicine [address] [place] [phone] Shara Ray MD [address] [place] [address] [place] [address] 06/21/2023 8:00 AM EDT Laboratory Lab Mobile [facility] [place] [address] [place] [address] [facility] Mobile Home Draw [address] [place] [address] 06/21/2023 2:30 PM EDT Office Visit Cardiology, [facility] 132 [facility] [place] [address] Hadley Molina MD 132 [facility] [place] [address] 06/24/2023 11:00 AM EDT Office Visit Hematology/Oncology [facility] [address] [place] [phone] Bouchra Del Cid CRNP [address] [place] [address] [facility] [address] 08/05/2023 1:00 PM EDT Nurse Only Ancillary [address] [place] [address] [place], Nurse [address] [place] [address] 09/20/2023 8:00 AM EDT Laboratory Lab Mobile [facility] [place] [address] [place] [address] [facility] Draw [address] [place] [address] 09/24/2023 11:30 AM EDT Office Visit Nephrology, [facility] [address] [place] [address] ZeKary bliss PA-C [address] [place] [address] 12/20/2023 8:00 AM EDT Laboratory Lab Mobile Ph[facility] [place] [address] [place] [address] [facility] Mobile Home Draw [address] [place] [address] 03/27/2024 8:00 AM EST Laboratory Lab Mobile Phle[facility] [place] [address] [place] [address] [facility] Mobile Home Draw [address] [place] [address] Scheduled Procedures Name Priority Associated Diagnoses Date/Ti [...] Additional history exists CKD HGB USE SMARTSET 87540 03/06/202403/06, 03/06/2023, 12/19/2022, Additional history exists CKD PHOS USE SMARTSET 42023 03/21/2024 02/0 02/2023, 12/19/2022, 11/28/2022, Additional history [...] this encounter Medical Devices Implanted Type Area Latent Fingerprint Examiner Device Identifier Shelf Expiration Date Model / Serial / Lot Cyclone Suture Biocomposite - Sn/A - [id number] Implanted:Qty: 2 on 12/13/2021 by Moris Jimenez DO at OR [facility] Left: Leg Lower [employer] 07/18/2024 [id number]-[id number] / N/A / [id number] Vitoss Bbtrauma Foam Pack - [id number] - [id number] Implanted:Qty: 1 on 12/13/2021 by Moris Jimenez DO at OR [facility] Left: Leg Lower MICHA : TRAUMA 01/15/2022 / [id number] / [id number] documented as of this encounter Advance Directives Latest Code Status on File Code Status Date Activated Date Inactivated Comments Full Code 12/12/2021 7:18 PM 12/20/2021 6:08 PM This order reflects the patients wishes and were consensually agreed upon. Question Answer Comments Discussion of Advance Directives occurred with: Patient Care Teams Social Media Job Titles Relationship Specialty Start Date End Date Shara Ray MD [address] [place] [address] [place] [phone] PCP - General Family Medicine 03/08/23 documented as of this encounter
--- OUTSIDE RECORDS SUMMARY | 2023-07-10 17:41 | External Medical Summary | Summary of Care ---
Author Name Unknown Organization [facility] Address [address] [facility] [address] Phone [phone] Care Team Providers Care Host Name Role Phone Shara Ray MD Primary Care Provide r Reason for Visit * Reason Onset Date Comments Appointment 04/19/2023 Encounter Details Date Type Department Care Team (Late st Contact Info) Description 04/19/2023 Telephone Nephrology, [facility] 200 [facility] [place] [address] Aliyah Lacey MD 200 [place] [address] Appointment Allergies Active Allergy Reactions Criticality Noted [...] 100 Tablet 0 02/07/2023 4 Active Nystatin 131286 UNIT/ML Mouth/Throat SuspensionIndication s:Thrush Swish and swallow [...] by mouth daily as directed by [facility] 180 Tablet 3 03/06/2023 Active [...] controlled Continue coumadin Atherosclerosis of [place] co ronary artery without angina pectoris 04/03/2023 [...] Xray Additional Comments: Followed by director of hotel - Dr. 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 CONTACT: Roberto Carlos Huertas, Diffuser Operator Type 2 diabetes mellitus wit h [...] Telephone Encounter - Wilma Sanchez OSA - 04/19/2023 8:41 AM EST 04/19/23 Called patient, left message. Trying to get patient scheduled with Nephrology sooner with Dr. Lacey. Please offer 04/19/23 appointments to patient in [facility]. If not, please offer first available to patient with Dr. Lacey. My G message being sent out as well. documented in this encounter Plan of Treatment Upcoming Encounters Date Type Department Care Team (Late st Contact Info) Description 04/24/2023 9:30 AM EST Laboratory Lab Mobile [place] [place] [address] [place] [address] [facility] Mobile Home Draw [address] [place] [address] 04/24/2023 10:00 AM EST [facility], [facility] [address] [place] [address] Valentina Laws RN [address] [place] [address] 04/25/2023 6:00 AM EST Anticoagulation Pharmacy Call Center WB 58-60 [facility] [place] [address] Ccps, [facility] 58 60 [place] [address] 06/04/2023 1:30 PM EDT Office Visit Allergy/Immunology [facility] 200 [facility] [place] [address] Macario Pathak MD 200 [facility] [place] [address] 06/10/2023 12:20 PM EDT Office Visit Family Medicine [address] [phone] Shara Ray MD [address] [place] [address] [place] [address] 06/21/2023 8:00 AM EDT Laboratory Lab Mobile Phlebotomy [facility] [address] [place] [address] [facility], [facility] Mobile Home Draw [address] [place] [address] 06/21/2023 2:30 PM EDT Office Visit Cardiology, [facility] 132 [place] [address] Hadley Molina MD [address] [place] [address] 06/24/2023 11:00 AM EDT Office Visit Hematology/Oncology [facility] [address] [place] [address] Bouchra Del Cid CRNP 400 [facility] [place] [address] 08/05/2023 1:00 PM EDT Nurse Only Ancillary [address] [place] [address] [place], Nurse [address] [place] [address] 09/20/2023 8:00 AM EDT Laboratory Lab Mobile Phlebotomy [facility] [address] [place] [address] [facility], [facility] Mobile Home Draw [address] [place] [address] 09/24/2023 11:30 AM EDT Office Visit Nephrology, [facility] 200 [facility] [place] [address] ZeKary bliss PA-C 200 [facility] [place] [address] 12/20/2023 8:00 AM EDT Laboratory Lab Mobile Phlebotomy [facility] [address] [place] [address] [facility], [facility] Mobile Home Draw [address] [place] [address] 03/27/2024 8:00 AM EST Laboratory Lab Mobile Phlebotomy [facility] [address] [place], [place] [address] [facility], [facility] Mobile Home Draw [address] [place], [place] [address] Scheduled Procedures Name Priority Associated Diagnoses Date/Ti [...] Additional history exists CKD HGB USE SMARTSET 23843 03/06/202403/06, 03/06/2023, 12/19/2022, Additional history exists CKD PHOS USE SMARTSET 36226 03/21/2024 02/0 02/2023, 12/19/2022, 11/28/2022, Additional history [...] this encounter Medical Devices Implanted Type Area Construction Operations Manager Device Identifier Shelf Expiration Date Model / Serial / Lot Brokaw Suture Biocomposite - Sn/A - [id number] Implanted:Qty: 2 on 12/13/2021 by Moris Jimenez, DO at OR [facility] Left: Leg Lower [employer] 07/18/2024 AR-2324BCC / N/A / [id number] Vitoss Bbtrauma Foam Pack - [id number] - [id number] Implanted:Qty: 1 on 12/13/2021 by Moris Jimenez, DO at OR [facility] Left: Leg Lower MICHA : TRAUMA 01/15/[id number] / [id number] / [id number] documented as of this encounter Advance Directives Latest Code Status on File Code Status Date Activated Date Inactivated Comments Full Code 12/12/2021 7:18 PM 12/20/2021 6:08 PM This order reflects the patients wishes and were consensually agreed upon. Question Answer Comments Discussion of Advance Directives occurred with: Patient Care Teams Host Relationship Specialty Start Date End Date Shara Ray MD [address] [place] [address] [place] [phone] PCP - General Family Medicine 03/08/23 documented as of this encounter
--- OUTSIDE RECORDS SUMMARY | 2023-07-10 17:41 | External Medical Summary | Summary of Care ---
Author Name Unknown Organization [facility] Address [address] [facility] [address] Phone [phone] Care Team Providers Care Child Care Counselor Name Role Phone Shara Ray MD Primary Care Provide r Reason for Visit * Reason Onset Date Comments Appointment 04/19/2023 Encounter Details Date Type Department Care Team (Late st Contact Info) Description 04/19/2023 Telephone Nephrology, [facility] 200 [facility] [place] [address] Aliyah Lacey MD 200 [place] [address] Appointment Allergies Active Allergy Reactions Criticality Noted [...] 100 Tablet 0 02/07/2023 4 Active Nystatin 280030 UNIT/ML Mouth/Throat SuspensionIndication s:Thrush Swish and swallow [...] Plan: Rate controlled Continue coumadin Atherosclerosis of [place] co ronary artery without angina pectoris 04/03/2023 [...] IM/IV Chest Xray Additional Comments: Followed by stonemason - Dr. 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 CONTACT: Roberto Carlos Huertas, Inside Sales Associate Type 2 diabetes mellitus wit h [...] Encounter - Wilma Sanchez OSA - 04/19/2023 11:01 AM EST 04/19/23 patient came in to [facility] and stated that they will not be able to make it to the appointment on 04/19/23 in clinic. We will be discussing it with the doctor to find a sooner appointment to get patient in with Dr. Lacey. * Telephone Encounter - Wilma Sanchez OSA - 04/19/2023 8:41 AM EST 04/19/23 Called patient, left message. Trying to get patient scheduled with Nephrology sooner with Dr. Lacey. Please offer 04/19/23 appointments to patient in clinic. If not, please offer first available to patient with Dr. Lacey. My G message being sent out as well. documented in this encounter Plan of Treatment Upcoming Encounters Date Type Department Care Team (Late st Contact Info) Description 04/24/2023 9:30 AM EST Laboratory Lab Mobile Phlebotomy [facility] [address] [place] [address] Gm, Gml Mobile Home Draw [address] [place] [address] 04/24/2023 10:00 AM EST [facility] [place], [facility] 132 [facility] [address] Valentina Laws, TANISHA 132 [place] [address] 04/25/2023 6:00 AM EST Anticoagulation Pharmacy Call Center WB [address] [place] [address] Ccps, [facility] 58 60 [place] [address] 06/04/2023 1:30 PM EDT Office Visit Allergy/Immunology [facility] [address] [place] [address] Macario Pathak MD [address] [place] [address] 06/10/2023 12:20 PM EDT Office Visit Family Medicine [address] [place] [phone] Shara Ray MD [address] [place] [address] [place] [address] 06/21/2023 8:00 AM EDT Laboratory Lab Mobile Phlebotomy [facility] [address] [place] [address] [facility] Mobile Home Draw [address] [place] [address] 06/21/2023 2:30 PM EDT Office Visit Cardiology, [facility] [address] [place] [address] Hadley Molina MD 132 [facility] [address] 06/24/2023 11:00 AM EDT Office Visit Hematology/Oncology [facility] 200 [facility] [place] [address] Bouchra Del Cid CRNP 400 [facility] [place] [address] 08/05/2023 1:00 PM EDT Nurse Only Ancillary [address] [place] [address] [place], Nurse [address] [place] [address] 09/20/2023 8:00 AM EDT Laboratory Lab Mobile Phlebot[facility] [address] [place] [address] [facility] Mobile Home Draw [address] [place] [address] 09/24/2023 11:30 AM EDT Office Visit Nephrology, [facility] 200 [facility] [place] [address] ZeKary bliss PA-C 200 [facility] [place] [address] 12/20/2023 8:00 AM EDT Laboratory Lab Mobile Phlebotomy [facility] [address] [place] [address] [facility], [facility] Mobile Home Draw [address] [place] [address] 03/27/2024 8:00 AM EST Laboratory Lab Mobile Phlebot[facility] [address] [place] [address] [facility], [facility] Mobile Home Draw [address] [place] [address] Scheduled Procedures Name Priority Associated Diagnoses Date/Ti [...] Additional history exists CKD HGB USE SMARTSET 08705 03/06/202403/06, 03/06/2023, 12/19/2022, Additional history exists CKD PHOS USE SMARTSET 52437 03/21/2024 02/0 02/2023, 12/19/2022, 11/28/2022, Additional history [...] this encounter Medical Devices Implanted Type Area Technical Support Manager Device Identifier Shelf Expiration Date Model / Serial / Lot [place] Suture Biocomposite - Sn/A - [id number] Implanted:Qty: 2 on 12/13/2021 by Moris Jimenez DO at OR [facility] Left: Leg Lower [employer] 07/18/2024 AR-2324BCC / N/A / [id number] Vitoss Bbtrauma Foam Pack - [id number] - [id number] Implanted:Qty: 1 on 12/13/2021 by Moris Jimenez DO at OR [facility] Left: Leg Lower MICHA : TRAUMA 01/15/2022 / [id number] / [id number] documented as of this encounter Advance Directives Latest Code Status on File Code Status Date Activated Date Inactivated Comments Full Code 12/12/2021 7:18 PM 12/20/2021 6:08 PM This order reflects the patients wishes and were consensually agreed upon. Question Answer Comments Discussion of Advance Directives occurred with: Patient Care Teams Child Care Counselor Relationship Specialty Start Date End Date Shara Ray MD [address] [place] [address] [place] [phone] PCP - General Family Medicine 03/08/23 documented as of this encounter
--- OUTSIDE RECORDS SUMMARY | 2023-07-10 17:42 | External Medical Summary | Summary of Care ---
Author Name Unknown Organization [facility] Address [address] [facility] [place] [address] Phone [phone] Care Team Providers Care Cured Meat Packing Supervisor Name Role Phone Shara Ray MD Primary Care Provide r Reason for Visit * Reason Onset Date Comments Information 04/18/2023 Encounter Details Date Type Department Care Team (Late st Contact Info) Description 04/18/2023 Telephone Cardiology, [facility] [address] [place] [address] Judd Sutton, [address] [place] [address] Information Allergies Active Allergy Reactions Criticality Noted [...] 100 Tablet 0 02/07/2023 4 Active Nystatin 888478 UNIT/ML Mouth/Throat SuspensionIndication s:Thrush Swish and swallow [...] tablets by mouth daily as directed by [facility] 180 Tablet 3 03/06/2023 Active Nitroglycerin [...] Plan: Rate controlled Continue coumadin Atherosclerosis of [place] co ronary artery without angina pectoris [...] IM/IV Chest Xray Additional Comments: Followed by historical archeologist - Dr. Rashel Sales [facility] Closed nondisplaced fracture of left tibial tuberosity with routine healing 12/12/2021 Mild protein-calorie malnutrition 12/05/2021 Controlled substance agreement signed 12/05/2021 Hematoma of leg, left, subsequent encounter 09/2021 Overview: [facility] ER ulstrasound shows hematoma calf, [...] Remote Patient Monitoring Vendor: [facility] Device(s): Connected Scale Self - [...] & Plan: Chronic AC coumadin Atherosclerosis of [place] co ronary artery of [place] heart without angina pectoris documented as [...] Overview: Per CKD protocol #1 [employer] Other*[id number] 06/02/2010 04/18/2011 Overview: PROJECT: #[id number], SPONSOR: [employer], PI: Adolfo De Jesus MD [...] can be closed. CONTACT: Roberto Carlos Huertas, Body And Fender Mechanic Apprentice Type 2 diabetes mellitus wit h hemoglobin [...] Telephone Encounter - Suzie Landeros LPN - 04/19/2023 8:33 AM EST Reminder note sent to nurse pool for follow up * Telephone Encounter - Suzie Landeros LPN - 04/19/2023 8:29 AM EST Please arrange follow with Dr Lacey per her recommendation * Telephone Encounter - Aliyah Lacey MD - 04/18/2023 6:18 PM EST See separate my chart encounter from today were patient ask me for feedback on these labs. Cardiology plan reviewed to hold torsemide for 2 days and then resume. Note patient only had 1 doseof the metolazone on April 08. Called and spoke to patient who tells me her weights have been up and down ranging from 141-144 in the past 3 days with no trend. Tells me her leg is much better and edema less taut. RENAL NURSE -please put a message out to get patient back in to see me within the next month due to history of acute kidney injury/progressive CKD -please monitor for lab results next Saturday & share these with me so that I can follow Cardiology docs and PCP, FYI * Telephone Encounter - Elisha Gutierrez LPN - 04/18/2023 4:32 PM EST Orders placed per physician request. * Telephone Encounter - Judd Sutton DO - 04/18/2023 1:43 PM EST In coverage of Dr. Molina, I reviewed the patient's lab results and called her. She was not taken any additional doses metolazone since the single dose that was prescribed on 04/08/2023. She thinks that her degree of swelling and shortness of breath is stable, improved compared to before she took the metolazone. Chemistry panel performed on 04/17 revealed hyponatremia with sodium level 129, chloride 86, BUN 112, and creatinine of 3 up compared to 2.3 a week ago. Her previous baseline creatinine had been in the range of 1.6 to 1.8 in February of this year. I recommended that she hold her torsemide 100 milligrams daily completely x2 days. Keep plans to have repeat chemistry panel as scheduled for next Saturday. Cardio nursing: can you please place a bmp that can be draw as early as 04/21 so that order is in place for patient, and order under Dr Molina's name so that results go to his inbox since I am away nextweek. Judd Sutton DO documented in this encounter Plan of Treatment Upcoming Encounters Date Type Department Care Team (Late st Contact Info) Description 04/24/2023 9:30 AM EST Laboratory Lab Mobile Phlebotomy [facility] [address] [place] [address] [facility] Mobile Home Draw [address] [place] [address] 04/24/2023 10:00 AM EST [facility] Visit [facility], [facility] [address] [facility] [place] [address] Valentina Laws, TANISHA [facility] [place] [address] 04/25/2023 6:00 AM EST Anticoagulation Pharmacy Call Center [address] [place] [address] Ccps, [facility] [address] [place] [address] 06/04/2023 1:30 PM EDT Office Visit Allergy/Immunology [facility] [address] [place] [address] Macario Pathak MD [address] [place] [address] 06/10/2023 12:20 PM EDT Office Visit Family Medicine [address] [phone] Shara Ray MD [address] [place] [address] [place] [address] 06/21/2023 8:00 AM EDT Laboratory Lab Mobile Phlebotomy [facility] [address] [place] [address] [facility] Mobile Home Draw [address] [place] [address] 06/21/2023 2:30 PM EDT Office Visit Cardiology, [facility] [address] [place] [address] Hadley Molina MD [address] [place] [address] 06/24/2023 11:00 AM EDT Office Visit Hematology/Oncology [facility] [address] [place] [phone] Bouchra Del Cid CRNP 400 [facility] [place] [address] 08/05/2023 1:00 PM EDT Nurse Only Ancillary [address] [place] [address] [place], Nurse [address] [place] [address] 09/20/2023 8:00 AM EDT Laboratory Lab Mobile Phlebotomy [facility] [address] [place] [address] [facility] Mobile Home Draw [address] [place] [address] 09/24/2023 11:30 AM EDT Office Visit Nephrology, [facility] [address] [facility] [place] [address] ZeKary bliss PA-C [address] [facility] [place] [address] 12/20/2023 8:00 AM EDT Laboratory Lab Mobile Phlebotomy [facility] [address] [place] [facility] [place] [address] Gm, Gml Mobile Home Draw [address] [facility] [place] [address] 03/27/2024 8:00 AM EST Laboratory Lab Mobile Phlebotomy [facility] [address] [place] [facility] [place] [address] [facility] Mobile Home Draw [address] [place] [address] Scheduled Procedures Name Priority Associated Diagnoses Date/Ti [...] Additional history exists CKD HGB USE SMARTSET 94944 03/06/202403/06, 03/06/2023, 12/19/2022, Additional history exists CKD PHOS USE SMARTSET 64743 03/21/2024 02/0 02/2023, 12/19/2022, 11/28/2022, Additional history [...] this encounter Medical Devices Implanted Type Area Pony Rougher Device Identifier Shelf Expiration Date Model / Serial / Lot [place] Suture Biocomposite - Sn/A - [id number] Implanted:Qty: 2 on 12/13/2021 by Moris Jimenez DO at OR [facility] Left: Leg Lower [employer] 07/18/2024 [id number] / N/A / [id number] Vitoss Bbtrauma Foam Pack - [id number] - [id number] Implanted:Qty: 1 on 12/13/2021 by Moris Jimenez DO at OR [facility] Left: Leg Lower MICHA : TRAUMA 01/15/2022 [id number] / [id number] / [id number] documented as of this encounter Advance Directives Latest Code Status on File Code Status Date Activated Date Inactivated Comments Full Code 12/12/2021 7:18 PM 12/20/2021 6:08 PM This order reflects the patients wishes and were consensually agreed upon. Question Answer Comments Discussion of Advance Directives occurred with: Patient Care Teams Cured Meat Packing Supervisor Relationship Specialty Start Date End Date Shara Ray MD [address] [place] [address] [place] [address] PCP - General Family Medicine 03/08/23 documented as of this encounter
--- OUTSIDE RECORDS SUMMARY | 2023-07-10 17:43 | External Medical Summary | Summary of Care ---
Author Name Unknown Organization [facility] Address [address] [facility] [place] [address] Phone [phone] Care Team Providers Care Meat Inspector Name Role Phone Shara Ray MD Primary Care Provide r Reason for Visit * Reason Onset Date Comments Information 04/18/2023 Encounter Details Date Type Department Care Team (Late st Contact Info) Description 04/18/2023 Telephone Cardiology, [facility] [address] [place] [address] Judd Sutton, [address] [place] [address] Information Allergies Active Allergy Reactions Criticality Noted [...] as of this encounter (statuses as of 04/18/2023) Medications Medication Sig Dispensed Refills Start Date [...] 100 Tablet 0 02/07/2023 4 Active Nystatin 428772 UNIT/ML Mouth/Throat SuspensionIndication s:Thrush Swish and swallow [...] tablets by mouth daily as directed by [facility] 180 Tablet 3 03/06/2023 Active Nitroglycerin [...] as of this encounter (statuses as of 04/18/2023) Active Problems Problem Noted Date Diagnosed Date Major depressive disorder, recurrent, moderate 0 04/03/2023 Last Assessment & Plan: Mood stable on current dose celexa Other persistent atrial fibrillation 04/03/2023 Last Assessment & Plan: Rate controlled Continue coumadin Atherosclerosis of [place] co ronary artery without angina pectoris 04/03/2023 [...] IM/IV Chest Xray Additional Comments: Followed by vegetable farming supervisor - Dr. Rashel Sales [facility] Closed nondisplaced fracture of left tibial tuberosity with routine healing 12/12/2021 Mild protein-calorie malnutrition 12/05/2021 Controlled substance agreement signed 12/05/2021 Hematoma of leg, left, subsequent encounter 09/2021 Overview: [facility] ER ulstrasound shows hematoma calf, [...] & Plan: Chronic AC coumadin Atherosclerosis of [place] co ronary artery of [place] heart without angina pectoris documented as of this encounter (statuses as of 04/18/2023) Resolved Problems Problem Noted Date Diagnosed Date [...] Overview: Per CKD protocol #1 [employer]BIT-[employer] Research Other*[id number] 06/02/2010 04/18/2011 Overview: PROJECT: #[id number], SPONSOR: [employer], PI: Adolfo De eJsus MD SUMMARY: Observational registry to better understand [...] can be closed. CONTACT: Roberto Carlos Huertas, Cleater Type 2 diabetes mellitus wit h hemoglobin [...] as of this encounter (statuses as of 04/18/2023) Immunizations Name Administration Dates Next Due COVID-19 [...] in place for patient, and order under Jesse's name so that results go to his inbox since I am away nextweek. Judd Sutton DO documented in this encounter Plan of Treatment Upcoming Encounters Date Type Department Care Team (Late st Contact Info) Description 04/19/2023 8:15 AM EST Cardiac Studies Card[facility], [facility] [address] 04/24/2023 9:30 AM EST Laboratory Lab [place] [address] [place] [address] [facility], [facility] Mobile Home Draw [address] [place] [address] 04/24/2023 10:00 AM EST [facility], [facility] [address] [place] [address] Valentina Laws RN [address] [place] [address] 04/25/2023 6:00 AM EST Anticoagulation Pharmacy Call Center WB [address] [facility] [place] [address] Ccps, [facility] [address] 60 [facility] [place] [address] 06/04/2023 1:30 PM EDT Office Visit Allergy/Immunology [facility] [place] [address] [place] [address] Macario Pathak MD 200 [facility] [place] [address] 06/10/2023 12:20 PM EDT Office Visit Family Medicine [address] [phone] Shara Ray MD [address] [place] [address] [place] [address] 06/21/2023 8:00 AM EDT Laboratory Lab Mobile Phlebotomy [facility] [address] [place] [address] [facility], [facility] Mobile Home Draw [address] [place] [address] 06/21/2023 2:30 PM EDT Office Visit Cardiology, [facility] [address] [place] [address] Hadley Molina MD 132 [place] [address] 06/24/2023 11:00 AM EDT Office Visit Hematology/Oncology [facility] [place] [address] [place] [phone] Bouchra Del Cid CRNP [address] [place] [address] 08/05/2023 1:00 PM EDT Nurse Only Ancillary [address] [place] [address] [place], Nurse Annual [address] [place] [address] 09/20/2023 8:00 AM EDT Laboratory Lab Mobile Phlebotomy [facility] [address] [place] [address] [facility], [facility] Mobile Home Draw [address] [place] [address] 09/24/2023 11:30 AM EDT Office Visit Nephrology, [facility] [address] [facility] [place] [address] ZeKary bliss PA-C [address] [facility] [place] [address] 12/20/2023 8:00 AM EDT Laboratory Lab Mobile Phlebotomy [facility] [address] [place] [address] [facility], [facility] Mobile Home Draw [address] [place] [address] 03/27/2024 8:00 AM EST Laboratory Lab Mobile Phlebotomy [facility] [address] [place], [place] [address] [facility], [facility] Mobile Home Draw [address] [place], [place] [id number] Scheduled Procedures Name Priority Associated Diagnoses Date/Ti [...] Additional history exists CKD HGB USE SMARTSET 93363 03/06/202403/06, 03/06/2023, 12/19/2022, Additional history exists CKD PHOS USE SMARTSET 79754 03/21/2024 02/0 02/2023, 12/19/2022, 11/28/2022, Additional history [...] this encounter Medical Devices Implanted Type Area Fare Enforcement Officer Device Identifier Shelf Expiration Date Model / Serial / Lot [place] Suture Biocomposite - Sn/A - [id number] Implanted:Qty: 2 on 12/13/2021 by Moris Jimenez, DO at OR [facility] Left: Leg Lower [employer] 07/18/2024 [id number] / N/A / [id number] Vitoss Bbtrauma Foam Pack - [id number] - [id number] Implanted:Qty: 1 on 12/13/2021 by Moris Jimenez, DO at OR [facility] Left: Leg Lower MICHA : TRAUMA 01/15/2022 / [id number] / [id number] documented as of this encounter Advance Directives Latest Code Status on File Code Status Date Activated Date Inactivated Comments Full Code 12/12/2021 7:18 PM 12/20/2021 6:08 PM This order reflects the patients wishes and were consensually agreed upon. Question Answer Comments Discussion of Advance Directives occurred with: Patient Care Teams Meat Inspector Relationship Specialty Start Date End Date Shara Ray MD [address] [place] [address] [place] [phone] PCP - General Family Medicine 03/08/23 documented as of this encounter
--- OUTSIDE RECORDS SUMMARY | 2023-07-10 17:44 | External Medical Summary | Summary of Care ---
Author Name Unknown Organization [facility] Address [address] [place] [address] Phone [phone] Care Team Providers Care Pari Mutuel Ticket Seller Name Role Phone Shara Ray MD Primary Care Provide r Encounter Details Date Type Department Care Team (Late st Contact Info) Description 04/10/2023 10:00 AM EST Laboratory Lab Mobile Phlebotomy [facility] [address] [place], [place] [phone] [facility], [facility] Mobile Home Draw [address] [place] [address] remote computer terminal operator current use of anticoagulant therapy; History of TIA (transient ischemic attack); S/P mitral valve replacement; Permanent atrial fibrillation (HCC); Acute on chronic right-sided heart failure (HCC) Allergies Active Allergy Reactions Criticality Noted [...] 100 Tablet 0 02/07/2023 4 Active Nystatin 403744 UNIT/ML Mouth/Throat SuspensionIndication s:Thrush Swish and swallow [...] IM/IV Chest Xray Additional Comments: Followed by principal bioinformatics specialist - Dr. Rashel Sales [facility] [...] in the Comments) Remote Patient Monitoring Vendor: [facility] Device(s): Connected Scale Self - Management Plan [...] Overview: Per CKD protocol #1 ORBIT-AF Research Other*[id number] 06/02/2010 04/18/2011 Overview: PROJECT: #[id number], SPONSOR: Aileen, PI: Adolfo De Jesus MD [...] can be closed. CONTACT: Roberto Carlos Huertas, Subway Car Repairer Type 2 diabetes mellitus wit h [...] as of this encounter Miscellaneous Notes * Result Encounter Note - Hadley Molina MD - 04/11/2023 2:53 PM EST Repeat BMP 1 week documented in this encounter Plan of Treatment Upcoming Encounters Date Type Department Care Team (Late st Contact Info) Description 04/19/2023 8:15 AM EST Cardiac Studies Cardiac Studies, [facility] [address] 04/24/2023 9:30 AM EST Laboratory Lab Mobile Phlebotomy [facility] [address] [place] [address] [facility], [facility] Mobile Home Draw [address] [place] [address] 04/24/2023 10:00 AM EST [facility] Visit [facility], [facility] [address] [place] [address] Valentina Laws, TANISHA [address] [place] [address] 04/25/2023 6:00 AM EST Anticoagulation Pharmacy Call Center WB 58-60 [facility] [place] [address] Ccps, [facility] 58 60 [facility] [place] [address] 06/04/2023 1:30 PM EDT Office Visit Allergy/Immunology [facility] [address] [facility] [place] [address] Macario Pathak MD [address] [place] [address] 06/10/2023 12:20 PM EDT Office Visit Family Medicine [address] [phone] Shara Ray MD [address] [place] [address] [place] [address] 06/21/2023 8:00 AM EDT Laboratory Lab Mobile Phlebotomy [facility] [address] [place] [address] [facility], [facility] Mobile Home Draw [address] [place] [address] 06/21/2023 2:30 PM EDT Office Visit Cardiology, [facility] 132 [place] [address] Hadley Molina MD [address] [place] [address] 06/24/2023 11:00 AM EDT Office Visit Hematology/Oncology [facility] [address] [facility] [place] [phone] Bouchra Del Cid CRNP 400 [facility] [place] [place] [address] 08/05/2023 1:00 PM EDT Nurse Only Ancillary [address] [place] [address] [place], Nurse Annual [address] [place] [address] 09/20/2023 8:00 AM EDT Laboratory Lab Mobile Phlebotomy [facility] [address] [place] [address] [facility], [facility] Mobile Home Draw [address] [place] [address] 09/24/2023 11:30 AM EDT Office Visit Nephrology, [facility] [place] [facility] [place] [address] ZemaitisKary PA-C [address] [place] [address] 12/20/2023 8:00 AM EDT Laboratory Lab Mobile Phlebotomy [facility] [address] [place] [address] [facility] Mobile Home Draw [address] [place] [address] 03/27/2024 8:00 AM EST Laboratory Lab Mobile Phlebotomy [facility] [address] [place], [place] [address] [facility], [facility] Mobile Home Draw [address], [place] [id number] Scheduled Procedures Name Priority Associated Diagnoses Date/Ti [...] Additional history exists CKD HGB USE SMARTSET 96820 03/06/202403/06, 03/06/2023, 12/19/2022, Additional history exists CKD PHOS USE SMARTSET 24202 03/21/2024 02/0 02/2023, 12/19/2022, 11/28/2022, Additional history [...] this encounter Medical Devices Implanted Type Area Electrotyper Helper Device Identifier Shelf Expiration Date Model / Serial / Lot Circle Suture Biocomposite - Sn/A - [id number] Implanted:Qty: 2 on 12/13/2021 by Moris Jimenez, DO at OR [facility] Left: Leg Lower [employer] 07/18/2024 [id number] / N/A / [id number] Vitoss Bbtrauma Foam Pack - [id number] - [id number] Implanted:Qty: 1 on 12/13/2021 by Moris Jimenez, DO at OR [facility] Left: Leg Lower MICHA : TRAUMA 01/15/202221010426-8597 / [id number] / [id number] documented as of this encounter Procedures Procedure Name Priority Date/Time Associated Diagnosis Comments BASIC METABOLIC PANEL Routine 04/10/2023 10:55 AM EST S/P mitral valve replacement Acute on chronic right-sided heart failure (HCC) PT INR Routine 04/10/2023 10:55 AM EST assisted current use of anticoagulant therapy History of TIA (transient ischemic attack) S/P mitral valve replacement Permanent atrial fibrillation (HCC) documented in this encounter Results * (ABNORMAL) BASIC METABOLIC PANEL (04/10/2023 10:55 AM EST) BUN 53(H) 6 - 20 mg/dL 04/11/2023 4:06 AM EST [facility] Creatinine 2.3(H) 0.5 - 1.0 mg/dL 04/11/2023 4:06 AM EST [facility] Estimated Glomerular Filtration Rate 22(L) >=60 mL/min 04/11/2023 4:06 AM EST [facility] Comment:eGFR is calculated b ased on the CKD-EPI 2020 equation Sodium 133(L) 135 - 146 mmol/L 04/11/2023 4:06 AM EST [facility] Potassium 3.8 3.5 - 5.1 mmol/L 04/11/2023 4:06 AM EST [facility] Chloride 89(L) 98 - 107 mmol/L 04/11/2023 4:06 AM EST [facility] CO2 30 22 - 32 mmol/L 04/11/2023 4:06 AM EST [facility] Anion Gap 14 7 - 15 mmol/L 04/11/2023 4:06 AM EST LABORATORY C Glucose 160(H) 70 - 120 mg/dL 04/11/2023 4:06 AM EST [facility] Calcium 10.1 8.4 - 10.2 mg/dL 04/11/2023 4:06 AM EST LABORATORY C Blood Venous blood specimen / Unknown Venipuncture / Unknown 04/10/2023 10:55 AM EST 04/10/2023 12:38 PM EST Hadley Molina MD LAB BLOOD ORDERABLES Performing Organization Address City/[facility] Co de Phone Number LABORATORY [facility] [address] [place] [address] * (ABNORMAL) PT INR (04/10/2023 10:55 AM EST) [facility] Prothrombin Time 30.4(H) 11.6 - 15.2 seconds 04/10/2023 10:48 PM EST LAB[facility]ATORY [facility] INR 2.9(H) 0.8 - 1.2 04/10/2023 10:48 PM EST LABORATORY [facility] Blood Venous blood specimen / Unknown Venipuncture / Unknown 04/10/2023 10:55 AM EST 04/10/2023 12:37 PM EST Narrative [facility] - 04/10/2023 10:48 PM EST Warfarin Therapy INR: 2.0-3.0 conventional anticoagulation INR: 2.5-3.5 high intensity anticoagulation [facility] LAB BLOOD ORDERAB LES Performing Organization Address City/[facility] de Phone Number LABORATORY [facility] [address], [place] [phone] documented in this encounter Visit Diagnoses Diagnosis remote computer terminal operator current use of anticoagulant therapy History of TIA (transient ischemic attack) Transient ischemic attack (TIA), and cerebral infarction without residual deficits S/P mitral valve replacement Heart valve replaced by other means Permanent atrial fibrillation (HCC) Atrial fibrillation Acute on chronic right-sided heart failure (HCC) documented in this encounter Advance Directives Latest Code Status on File Code Status Date Activated Date Inactivated Comments Full Code 12/12/2021 7:18 PM 12/20/2021 6:08 PM This order reflects the patients wishes and were consensually agreed upon. Question Answer Comments Discussion of Advance Directives occurred with: Patient Care Teams Pari Mutuel Ticket Seller Relationship Specialty Start Date End Date Shara Ray MD [address] [place] [address] [place] [phone] PCP - General Family Medicine 03/08/23 documented as of this encounter
--- OUTSIDE RECORDS SUMMARY | 2023-07-10 17:47 | External Medical Summary | Summary of Care ---
Author Name Unknown Organization [facility] Address [address] [facility] [place] [address] Phone [phone] Care Team Providers Care Vocational Education Teacher Name Role Phone Shara Ray MD Primary Care Provide r Encounter Details Date Type Department Care Team (Late st Contact Info) Description 04/18/2023 Orders Only Cardiology, [facility] [address] [place] [address] Hadley Molina MD [address] [place] [address] Hypertensive heart and kidney disease with chronic diastolic congestive heart failure and stage 3b chronic kidney disease (HCC)*; Acute on chronic right-sided heart failure (HCC) [...] Active Benzonatate 100 MG Oral Capsule (Tessalon Perleddie)Indications:C ough Take by mouth 1 Capsule as [...] BEFORE A MEAL 90 Tablet 1 06/04/2022 04/16/202 4 Active rOPINIRole HCl 2 MG Oral [...] 100 Tablet 0 02/07/2023 4 Active Nystatin 991190 UNIT/ML Mouth/Throat SuspensionIndication s:Thrush Swish and swallow [...] tablets by mouth daily as directed by [facility] 180 Tablet 3 03/06/2023 Active Nitroglycerin 0.4 [...] Plan: Rate controlled Continue coumadin Atherosclerosis of [place] co ronary artery without angina pectoris 04/03/2023 [...] Xray Additional Comments: Followed by director of audiology - Dr. Rashel Sales [facility] Closed nondisplaced fracture of left tibial tuberosity with routine healing 12/12/2021 Mild protein-calorie malnutrition 12/05/2021 Controlled substance agreement signed 12/05/2021 Hematoma of leg, left, subsequent encounter 09/2021 Overview: [facility] ER ulstrasound shows hematoma calf, INR [...] in the Comments) Remote Patient Monitoring Vendor: [facility] Device(s): Connected Scale Self - Management Plan [...] & Plan: Chronic AC coumadin Atherosclerosis of [place] co ronary artery of [place] heart without angina pectoris documented as of [...] Overview: Per CKD protocol #1 ORBIT-AF Research Other*[id number] 06/02/2010 04/18/2011 Overview: PROJECT: #[id number], SPONSOR: Aileen, PI: Adolfo De Jesus MD [...] can be closed. CONTACT: Roberto Carlos Huertas, Director Security Risk Management Type 2 diabetes mellitus wit h hemoglobin A1c goal of less than 7.0% 04/24/2010 08/29/2018 Overview: ICD-10 update of inactive term ACTIVE CASE MANAGEMENT Kassie Anthony RN [phone] 05/10/19 10 12/05/2009 ADVANCE DIRECTIVE INFORMATION 05/09/2009 [...] 8:15 AM EST Cardiac Studies Cardiac Studies, [facility] [address] [place] [address] 04/24/2023 9:30 AM EST Laboratory Lab Mobile Phlebotomy [facility] [address] [place] [address] [facility], [facility] Mobile Home Draw [address] [place] [address] 04/24/2023 10:00 AM EST [facility] Visit [facility] [address] [place] [address] Valentina Laws RN 132 [facility] [place] [address] 04/25/2023 6:00 AM EST Anticoagulation Pharmacy Call Center WB 58-60 [facility] [place] [address] Ccps, [facility] 58 60 [facility] [place] [address] 06/04/2023 1:30 PM EDT Office Visit Allergy/Immunology [facility] [place] 200 [facility] [place] [address] Macario Pathak MD 200 [facility] [place] [address] 06/10/2023 12:20 PM EDT Office Visit Family Medicine [address] [phone] Shara Ray MD [address] [place] [address] [place] [address] 06/21/2023 8:00 AM EDT Laboratory Lab Mobile Phlebotomy [facility] [address] [place] [address] [facility], [facility] Mobile Home Draw [address] [place], [place] [address] 06/21/2023 2:30 PM EDT Office Visit Cardiology, [facility] [place] [address] Hadley Molina MD [address] [place] [address] 06/24/2023 11:00 AM EDT Office Visit Hematology/Oncology [facility] [place] 200 [facility] [place] [phone] Bouchra Del Cid CRNP 400 [facility] [place] [address] 08/05/2023 1:00 PM EDT Nurse Only Ancillary [address] [place] [address] Andriy, Nurse [address] [place] [address] 09/20/2023 8:00 AM EDT Laboratory Lab Mobile Phlebotomy [facility] [address] [place] [address] [facility] Mobile Home Draw [address] [place] [address] 09/24/2023 11:30 AM EDT Office Visit Nephrology, [facility] [place] [address] [place] [address] ZemaitisKary PA-C [address] [place] [address] 12/20/2023 8:00 AM EDT Laboratory Lab Mobile Phlebotomy [facility] [address] [place] [address] [facility], [facility] Mobile Home Draw [address] [place] [address] 03/27/2024 8:00 AM EST Laboratory Lab Mobile Phlebotomy [facility] [address] [place], [place] [phone] [facility], [facility] Mobile Home Draw [address] [place] [address] Scheduled Orders Name Type Priority Associated Diagnoses Orde r Schedule BASIC METABOLIC PANEL Lab Routine Acute on chronic right-sided heart failure (HCC) Hypertensive heart and kidney disease with chronic diastolic congestive heart failure and stage 3b chronic kidney disease (HCC) Expected: 04/22/2023, Expires: 04/17/2024 Scheduled Procedures Name Priority Associated Diagnoses Date/Ti [...] Additional history exists CKD HGB USE SMARTSET 20474 03/06/202403/06, 03/06/2023, 12/19/2022, Additional history exists CKD PHOS USE SMARTSET 24203 03/21/2024 02/0 02/2023, 12/19/2022, 11/28/2022, Additional history [...] Medical Devices Implanted Type Area Director Of Officiating Device Identifier Shelf Expiration Date Model / Serial / Lot [place] Suture Biocomposite - Sn/A - [id number] Implanted:Qty: 2 on 12/13/2021 by Moris Jimenez, DO at OR [facility] Left: Leg Lower [employer] 07/18/2024 AR-[id number] / N/A / [id number] Vitoss Bbtrauma Foam Pack - [id number] - [id number] Implanted:Qty: 1 on 12/13/2021 by Moris Jimenez, DO at OR [facility] Left: Leg Lower MICHA : TRAUMA 01/15/2022 / [id number] / [id number] documented as of this encounter Visit Diagnoses Diagnosis Hypertensive heart and kidney disease with chronic diastolic congestive heart failure and stage 3b chronic kidney disease (HCC)- Primary Acute on chronic right-sided heart failure (HCC) documented in this encounter Advance Directives Latest Code Status on File Code Status Date Activated Date Inactivated Comments Full Code 12/12/2021 7:18 PM 12/20/2021 6:08 PM This order reflects the patients wishes and were consensually agreed upon. Question Answer Comments Discussion of Advance Directives occurred with: Patient Care Teams Vocational Education Teacher Relationship Specialty Start Date End Date Shara Ray MD [address] [place] [address] [place] [address] PCP - General Family Medicine 03/08/23 documented as of this encounter
--- OUTSIDE RECORDS SUMMARY | 2023-07-10 17:48 | External Medical Summary | Summary of Care ---
Author Name Unknown Organization [facility] Address 100 [facility] [place] [address] Phone [phone] Care Team Providers Care Rnfa Name Role Phone Shara Ray MD Primary Care Provide r Reason for Visit * Reason Onset Date Comments Information 04/18/2023 Encounter Details Date Type Department Care Team (Late st Contact Info) Description 04/18/2023 Telephone Cardiology, [facility] [address] [place] [address] Judd Sutton, [address] [place] [address] Information Allergies Active Allergy Reactions Criticality Noted [...] 100 Tablet 0 02/07/2023 4 Active Nystatin 289358 UNIT/ML Mouth/Throat SuspensionIndication s:Thrush Swish and swallow [...] IM/IV Chest Xray Additional Comments: Followed by housekeeping worker - [facility] Rashel Sales [facility] [...] Overview: Per CKD protocol #1 ORBIT-AF Research Other*[id number] 06/02/2010 04/18/2011 Overview: PROJECT: #[id number], SPONSOR: [employer], PI: Adolfo De Jesus MD [...] can be closed. CONTACT: Roberto Carlos Huertas, Graphic Designer Type 2 diabetes mellitus wit h [...] place for patient, and order under Dr Jesse's name so that results go to his inbox since I am away nextweek. Judd Sutton DO documented in this encounter Plan of Treatment Upcoming Encounters Date Type Department Care Team (Late st Contact Info) Description 04/19/2023 8:15 AM EST Cardiac Studies Cardiac Studies, [facility] 132 [facility] [place] [address] 04/24/2023 9:30 AM EST Laboratory Lab Mobile Phlebotomy [facility] [address] [place] [address] [facility], [facility] Mobile Home Draw [address] [place] [address] 04/24/2023 10:00 AM EST [facility], [facility] 132 [facility] [place] [address] Valentina Laws, TANISHA 132 [facility] [place] [address] 04/25/2023 6:00 AM EST Anticoagulation Pharmacy Call Center WB 58-60 [facility] [place] [address] Ccps, [facility] 58 60 [facility] [place] [address] 06/04/2023 1:30 PM EDT Office Visit Allergy/Immunology [place] [address] [place] [address] Macario Pathak MD [address] [place] [address] 06/10/2023 12:20 PM EDT Office Visit Family Medicine [address] [place] [phone] Shara Ray MD [address] [place] [address] [place] [address] 06/21/2023 8:00 AM EDT Laboratory Lab Mobile Phlebotomy [facility] [address] [place] [address] [facility], [facility] Mobile Home Draw [address] [place] [address] 06/21/2023 2:30 PM EDT Office Visit Cardiology, [facility] [place] [address] Hadley Molina MD 132 [place] [address] 06/24/2023 11:00 AM EDT Office Visit Hematology/Oncology [facility] 200 [facility] [place] [phone] Bouchra Del Cid CRNP [address] [place] [address] [place] [address] 08/05/2023 1:00 PM EDT Nurse Only Ancillary [address] [place] [address] [place], Nurse [address] [place] [address] 09/20/2023 8:00 AM EDT Laboratory Lab Mobile Phlebotomy [facility] [address] [place], [place] [phone] [facility], [facility] Mobile Home Draw [address] [place] [address] 09/24/2023 11:30 AM EDT Office Visit Nephrology, [facility] 200 [facility] [place] [address] Kary Pena PA-C 200 [facility] [place], [place] [address] 12/20/2023 8:00 AM EDT Laboratory Lab Mobile Phlebotomy [facility] [address] [place] [address] Gm, [facility] Mobile Home Draw [address] [place] [address] 03/27/2024 8:00 AM EST Laboratory Lab Mobile Phlebotomy [facility] [address] [place] [address] [facility], [facility] Mobile Home Draw [address] [place] [address] Scheduled Procedures Name Priority Associated Diagnoses Date/Ti [...] 10/20, 07/03/2021, Additional history exists Albumin/Creatinine Ratio 12/04/20232 023, 02/05/2022, 01/26/2021, Additional history exists CKD HGB USE SMARTSET 53759 03/06/202403/06, 03/06/2023, 12/19/2022, Additional history exists CKD PHOS USE SMARTSET 43633 03/21/2024 02/0 02/2023, 12/19/2022, 11/28/2022, Additional history [...] this encounter Medical Devices Implanted Type Area Respiratory Physician Device Identifier Shelf Expiration Date Model / Serial / Lot Arroyo Suture Biocomposite - Sn/A - [id number] Implanted:Qty: 2 on 12/13/2021 by Moris Jimenez, DO at OR [facility] Left: Leg Lower [employer] 07/18/2024 AR-2324BCC / N/A / [id number] Vitoss Bbtrauma Foam Pack - [id number] - [id number] Implanted:Qty: 1 on 12/13/2021 by Moris Jimenez, DO at OR [facility] Left: Leg Lower MICHA : TRAUMA 01/15/20222289-2920 / [id number] / [id number] documented as of this encounter Advance Directives Latest Code Status on File Code Status Date Activated Date Inactivated Comments Full Code 12/12/2021 7:18 PM 12/20/2021 6:08 PM This order reflects the patients wishes and were consensually agreed upon. Question Answer Comments Discussion of Advance Directives occurred with: Patient Care Teams Rnfa Relationship Specialty Start Date End Date Shara Ray MD [address] [place] [address] [place] [address] PCP - General Family Medicine 03/08/23 documented as of this encounter
--- OUTSIDE RECORDS SUMMARY | 2023-07-10 17:50 | External Medical Summary | Summary of Care ---
Author Name Unknown Organization [facility] Address [address] [facility] [place] [address] Phone [phone] Care Team Providers Care Dietary Assistant Name Role Phone Shara Ray MD Primary Care Provide r Reason for Visit * Reason Comments Dosage Adjustment Via Phone (anticoag Cl inic) Encounter Details Date Type Department Care Team (Latest Contact Info) Description 04/18/2023 6:00 AM EST Anticoagulation Pharmacy Call Center [address] [place] [address] [facility] 58 60 [facility] [place] [address] skilled nursing current use of anticoagulant therapy*; History of [...] 100 Tablet 0 02/07/2023 4 Active Nystatin 362248 UNIT/ML Mouth/Throat SuspensionIndication s:Thrush Swish and swallow [...] by mouth daily as directed by [facility] 180 Tablet 3 03/06/2023 Active Nitroglycerin [...] Plan: Rate controlled Continue coumadin Atherosclerosis of [place] co ronary artery without angina pectoris 04/03/2023 [...] IM/IV Chest Xray Additional Comments: Followed by menagerie superintendent - Dr. Rashel Sales [facility] Closed nondisplaced fracture of left tibial tuberosity [...] Plan: Symptoms well controlled on omeprazole intermediate teacher current use of anticoagulant therapy 0 05/10/2004 Overview: ICD-10 update of inactive term Rheumatic heart disease 03/05/2002 Old myocardial infarct 01/02/2001 Last Assessment & Plan: Continue Crestor 20 mg daily S/P mitral valve replacement Last Assessment & Plan: Chronic AC coumadin Atherosclerosis of [place] co ronary artery of [place] heart without angina pectoris documented as of [...] Overview: Per CKD protocol #1 ORBIT-AF Research Other*[id number] 06/02/2010 04/18/2011 Overview: PROJECT: #[id number], SPONSOR: Aileen, PI: Adolfo De Jesus MD [...] can be closed. CONTACT: Roberto Carlos Huertas, Preschool Teacher Assistant Type 2 diabetes mellitus wit h hemoglobin A1c goal of less than 7.0% 04/24/2010 08/29/2018 Overview: ICD-10 update of inactive term ACTIVE CASE MANAGEMENT Kassie Anthony RN [id number] 05/10/19 10 12/05/2009 ADVANCE DIRECTIVE INFORMATION 05/09/2009 [...] as of this encounter Progress Notes * Deanna Albarran PHARM Tech - 04/18/2023 10:58 AM EST Contacts Type Contact Phone/Fax 04/18/2023 10:57 AM EST Phone (Outgoing) Abdi Bowling (Self) [phone] (M) Spoke to Patient Subjective Patient Findings [...] communicated as noted by Pharmacist: Yes GORGE RAO Tech 04/18/2023, 10:58 AM * Harry Villagomez RPh - 04/18/2023 9:45 AM EST Coumadin Clinic (region specific) Objective Current Warfarin Dose As of 04/18/2023 Warfarin maintenance plan: 5 mg (2.5 mg x 2) every Tue, Fri; 3.75 mg (2.5 mg x 1.5) all other days INR Result As of 04/18/2023 INR goal: 3.0-3.5 INR used for dosin.0 (04/17/2023) Assessment & Plan Warfarin Plan As of 04/18/2023 Full warfarin instructions: 5 mg every Tue, Fri; 3.75 mg all other days No change documented: Harry Villagomez RPh Next INR check: 04/24/2023 Repeat PT/INR in 1 week(s) Weekly dose: not changed Additional Dosing Information: Description GML Mona, aris Wed ([facility], [facility], or [facility]) Please also send Cloud[employer] Tech to contact patient with dose instructions as noted. Harry Villagomez RPh 04/18/2023, 9:45 AM documented in this encounter Plan of Treatment Upcoming Encounters Date Type Department Care Team (Late st Contact Info) Description 04/19/2023 8:15 AM EST Cardiac Studies Cardiac Studies, [facility] [address] [place] [address] 04/24/2023 10:00 AM EST [facility] Visit [facility], [facility] [address] [place] [address] Valentina Laws, TANISHA 132 [place] [address] 04/25/2023 6:00 AM EST Anticoagulation Pharmacy Call Center 5860 [facility] [place] [address] [facility] 58 60 [facility] Denia [place]eeJ[place] [address] 06/04/2023 1:30 PM EDT Office Visit Allergy/Immunology [facility] Lacy Olyphant 200 [facility] [place] [address] Macario Pathak MD 200 [facility] [place] [address] 06/10/2023 12:20 PM EDT Office Visit Family Medicine [address] [place] [phone] Shara Ray MD [address] [place] [address] [place] [address] 06/21/2023 8:00 AM EDT Laboratory Lab Mobile Phlebotomy [facility] [address] [place] [address] [facility] Mobile Home Draw [address] [place] [address] 06/21/2023 2:30 PM EDT Office Visit Cardiology, [facility] 132 [facility] [address] Hadley Molina MD 132 [facility] [address] 06/24/2023 11:00 AM EDT Office Visit Hematology/Oncology [facility] 200 [facility] [place] [phone] Bouchra Del Cid CRNP [address] [place] [address] [place]ADOJ[place] [id number] 08/05/2023 1:00 PM EDT Nurse Only Ancillary [address] [place] [phone] [place], Nurse [address] [place] [address] 09/20/2023 8:00 AM EDT Laboratory Lab Mobile [facility]botomy [facility] [address] [place] [address] [facility] Mobile Home Draw [address] [place] [address] 09/24/2023 11:30 AM EDT Office Visit Nephrology, [facility] 200 [place] [address] ZemaKary velazco PA-C 200 [place] [address] 12/20/2023 8:00 AM EDT Laboratory Lab Mobile Phlebotomy [facility] [address] [place] [address] [facility] Mobile Home Draw [address] [place] [address] 03/27/2024 8:00 AM EST Laboratory Lab Mobile Phlebotomy [facility] [address] [place] [address] [facility] Mobile Home Draw [address] [place] [address] Scheduled Procedures Name Priority Associated Diagnoses Date/Ti [...] Additional history exists CKD HGB USE SMARTSET 14674 03/06/202403/06, 03/06/2023, 12/19/2022, Additional history exists CKD PHOS USE SMARTSET 61326 03/21/2024 02/0 02/2023, 12/19/2022, 11/28/2022, Additional history [...] this encounter Medical Devices Implanted Type Area Sewage Disposal Engineer Device Identifier Shelf Expiration Date Model / Serial / Lot [place] Suture Biocomposite - Sn/A - [id number] Implanted:Qty: 2 on 12/13/2021 by Moris Jimenez, DO at OR [facility] Left: Leg Lower [employer] 07/18/2024 [id number] / N/A / [id number] Vitoss Bbtrauma Foam Pack - [id number] - [id number] Implanted:Qty: 1 on 12/13/2021 by Moris Jimenez, DO at OR [facility] Left: Leg Lower MICHA : TRAUMA 01/15/202221011612-1152 / [id number] / [id number] documented as of this encounter Visit Diagnoses Diagnosis intermediate teacher current use of anticoagulant therapy- Primary History [...] Advance Directives occurred with: Patient Care Teams Dietary Assistant Relationship Specialty Start Date End Date Shara Ray MD [address] [place] [address] [place] [address] PCP - General Family Medicine 03/08/23 documented as of this encounter
--- OUTSIDE RECORDS SUMMARY | 2023-07-10 17:51 | External Medical Summary ---
Author Name Unknown Address Unknown Organization K01:[facility] [address] [facility] [place] [address] Laboratory Report Ordering Provider Test Date Status TOÑA HONG 04/17/2023 11:45:00 Final Observation Date Value Abnormality Reference (Units ) Status BUN 04/17/2023 11:45:00 112 Above high normal 6-20 (mg/dL) Final Creatinine 04/17/2023 11:45:00 3.0 Above high normal 0.5-1.0 (mg/dL) Final Glomerular filtration rate/1.73 sq M.predicted [Volume Rate/Area] in Serum, Plasma or Blood by Creatinine-based formula (CKD-EPI) 04/17/2023 11:45:00 17 Below low normal >=60 (mL/min) Final eGFR is calculated based on the CKD-EPI 2020 equation SODIUM 04/17/2023 11:45:00 129 Below low normal 135 -146 (mmol/L) Final Potassium 04/17/2023 11:45:00 3.7 3.5-5.1 (m mol/L) Final Cl 04/17/2023 11:45:00 86 Below low normal 98- 107 (mmol/L) Final CO2 04/17/2023 11:45:00 26 22-32 (mmo l/L) Final Anion gap 04/17/2023 11:45:00 17 Above high normal 7- 15 (mmol/L) Final Glucose 04/17/2023 11:45:00 204 Above high normal 70 -120 (mg/dL) Final Calcium 04/17/2023 11:45:00 10.0 8.4-10.2 ( mg/dL) Final Performing Location [facility] [address] [place] [address]
--- OUTSIDE RECORDS SUMMARY | 2023-07-10 17:51 | External Medical Summary | Summary of Care ---
Author Name Unknown Organization [facility] Address [address] [facility] [place] [address] Phone [phone] Care Team Providers Care Sheet Metal Erector Name Role Phone Shara Ray MD Primary Care Provide r Reason for Visit * Reason Comments Dosage Adjustment Via Phone (anticoag Cl inic) Encounter Details Date Type Department Care Team (Latest Contact Info) Description 04/11/2023 6:00 AM EST Anticoagulation Pharmacy Call Center [address] [place] [address] [facility] 58 60 [facility] [place] [address] halfway current use of anticoagulant therapy*; History of [...] as of this encounter (statuses as of 04/11/2023) Medications Medication Sig Dispensed Refills Start Date [...] 100 Tablet 0 02/07/2023 4 Active Nystatin 537371 UNIT/ML Mouth/Throat SuspensionIndication s:Thrush Swish and swallow [...] tablets by mouth daily as directed by [facility] 180 Tablet 3 03/06/2023 Active Nitroglycerin [...] as of this encounter (statuses as of 04/11/2023) Active Problems Problem Noted Date Diagnosed Date Major depressive disorder, recurrent, moderate 0 04/03/2023 Last Assessment & Plan: Mood stable on current dose celexa Other persistent atrial fibrillation 04/03/2023 Last Assessment & Plan: Rate controlled Continue coumadin Atherosclerosis of [place] co ronary artery without angina pectoris 04/03/2023 [...] IM/IV Chest Xray Additional Comments: Followed by staff cytotechnologist - Dr. Rashel Sales [facility] [...] & Plan: Chronic AC coumadin Atherosclerosis of [place] co ronary artery of [place] heart without angina pectoris documented as of this encounter (statuses as of 04/11/2023) Resolved Problems Problem Noted Date Diagnosed Date [...] Overview: Per CKD protocol #1 ORBIT-AF Research Other*[id number] 06/02/2010 04/18/2011 Overview: PROJECT: #[id number], SPONSOR: Aileen, PI: Adolfo De Jesus MD [...] can be closed. CONTACT: Roberto Carlos Huertas, Senior Qa Automation Engineer Type 2 diabetes mellitus wit h hemoglobin A1c goal of less than 7.0% 04/24/2010 08/29/2018 Overview: ICD-10 update of inactive term ACTIVE CASE MANAGEMENT Kassie Anthony RN [phone] 05/10/19 10 12/05/2009 ADVANCE DIRECTIVE INFORMATION 05/09/2009 [...] as of this encounter (statuses as of 04/11/2023) Immunizations Name Administration Dates Next Due COVID-19 [...] Notes * Deanna Albarran PHARM Tech - 04/11/2023 11:18 AM EST Contacts Type Contact Phone/Fax 04/11/2023 11:17 AM EST Phone (Outgoing) Abdi Bowling (Self) [phone] (M) Spoke to Patient Subjective Patient Findings [...] noted by Pharmacist: Yes GORGE RAO Tech 04/11/2023, 11:18 AM * Harry Villagomez RPh - 04/11/2023 9:08 AM EST Coumadin Clinic (region specific) Objective Current Warfarin Dose As of 04/11/2023 Warfarin maintenance plan: 5 mg (2.5 mg x 2) every Tue, Fri; 3.75 mg (2.5 mg x 1.5) all other days INR Result As of 04/11/2023 INR goal: 3.0-3.5 INR used for dosin.9 (04/10/2023) Assessment & Plan Warfarin Plan As of 04/11/2023 Full warfarin instructions: 04/11: 5 mg; Otherwise 5 mg every Tue, Fri; 3.75 mg all other days Next INR check: 04/17/2023 Repeat PT/INR in 1 week(s) Weekly dose: not changed My G Sent Additional Dosing Information: Description [facility] ramsey Dunn ([facility], [facility], or [facility]) Please also send myMediameeting Tech to contact patient with dose instructions as noted. Harry Villagomez RPh 04/11/2023, 9:09 AM documented in this encounter Plan of Treatment Upcoming Encounters Date Type Department Care Team (Late st Contact Info) Description 04/16/2023 9:30 AM EST Cardiac Studies Cardiology [address] [place] [address] [facility] 132 [facility] [place] [address] 04/17/2023 10:00 AM EST Laboratory Lab Mobile Phlebotomy [facility] [address] [place] [address] [facility] Mobile Home Draw [address] [place] [address] 04/19/2023 8:15 AM EST Cardiac Studies Cardiac Studies, [facility] 132 [facility] [place] [address] 04/24/2023 10:00 AM EST [facility] Visit [facility], [facility] 132 [facility] [place] [address] Valentina Laws, TANISHA 132 [facility] [place] [address] 06/04/2023 1:30 PM EDT Office Visit Allergy/Immunology [facility] [address] Macario Pathak MD 200 [place] [address] 06/10/2023 12:20 PM EDT Office Visit Family Medicine [address] [place] [phone] Shara Ray MD [address] [place] [address] [place] [address] 06/21/2023 8:00 AM EDT Laboratory Lab Mobile Phlebotomy [facility] [address] [place] [address] [facility] Mobile Home Draw [address] [place] [address] 06/24/2023 11:00 AM EDT Office Visit Hematology/Oncology [facility] 200 [facility] [place] [phone] Bouchra Del Cid CRNP [address] [place], [place] [address] [address] 08/05/2023 1:00 PM EDT Nurse Only Ancillary [address] [place] [address] [place], Nurse [address] [place] [address] 09/20/2023 8:00 AM EDT Laboratory Lab Mobile Phlebotomy [facility] [address] [place] [address] [facility], [facility] Mobile Home Draw [address] [place] [address] 09/24/2023 11:30 AM EDT Office Visit Nephrology, [facility] 200 [place] [address] ZemaKary velazco PA-C 200 [place] [address] 12/20/2023 8:00 AM EDT Laboratory Lab Mobile Phlebotomy [facility] [address] [place] [address] [facility], [facility] Mobile Home Draw [address] [place] [address] 03/27/2024 8:00 AM EST Laboratory Lab Mobile Phlebotomy [facility] [address] [place] [address] [facility], [facility] Mobile Home Draw [address] [place] [address] Scheduled Procedures Name Priority Associated Diagnoses Date/Ti [...] 0 09/02/2019, 08/29/2018, Additional history exists GFR 10/09/2023 04/10/2023, 03/21, 03/21/2023, Additional history exists Mammogram 11/16/2023 11/15/2022, 10/20, 07/03/2021, Additional history exists Albumin/Creatinine Ratio 12/04/2023 023, 02/05/2022, 01/26/2021, Additional history exists CKD HGB USE SMARTSET 20895 03/06/202403/06, 03/06/2023, 12/19/2022, Additional history exists CKD PHOS USE SMARTSET 77448 03/21/2024 02/0 02/2023, 12/19/2022, 11/28/2022, Additional history [...] this encounter Medical Devices Implanted Type Area Probation And Parole Officer Device Identifier Shelf Expiration Date Model / Serial / Lot [place] Suture Biocomposite - Sn/A - [id number] Implanted:Qty: 2 on 12/13/2021 by Moris Jimenez, DO at OR [facility] Left: Leg Lower [employer] 07/18/2024 AR-[id number] / N/A / [id number] Vitoss Bbtrauma Foam Pack - [id number] - [id number] Implanted:Qty: 1 on 12/13/2021 by Moris Jimenez, DO at OR [facility] Left: Leg Lower MICHA : TRAUMA 01/15/[id number] / [id number] / [id number] documented as of this encounter Visit Diagnoses Diagnosis halfway current use of anticoagulant therapy- Primary History [...] Advance Directives occurred with: Patient Care Teams Sheet Metal Erector Relationship Specialty Start Date End Date Shara Ray MD [address] [place] [address] [place] [address] PCP - General Family Medicine 03/08/23 documented as of this encounter
--- OUTSIDE RECORDS SUMMARY | 2023-07-10 17:51 | External Medical Summary ---
Author Name Unknown Address Unknown Organization K01:LAB[facility]ATORY [facility] - [address] [place] [place] [address] Laboratory Report Ordering Provider Test Date Status SONIA PANTOJA 04/17/2023 11:45:00 Final Standing order for pt/inr. < br/>Please draw pt/inr every 1 to 4 weeks as requested.
Results to [facility]

Warfarin Therapy
INR: 2.0-3.0 conventional anticoagulation
INR: 2.5-3.5 high intensity anticoagulation Observation Date Value Abnormality Reference (Units ) Status PT 04/17/2023 11:45:00 31.5 Above high normal 11 .6-15.2 (seconds) Final INR 04/17/2023 11:45:00 3.0 Above high normal 0. 8-1.2 Final Performing Location LAB[facility]ORY [facility] - [address] [place] [place] [address]
--- OUTSIDE RECORDS SUMMARY | 2023-07-10 17:52 | External Medical Summary | Summary of Care ---
Author Name Unknown Organization [facility] Address [address] [facility] [place] [address] Phone [phone] Care Team Providers Care Field Examiner Name Role Phone Shara Ray MD Primary Care Provide r Reason for Visit * Reason Onset Date Comments Appointment 03/28/2023 [facility] appointment Encounter Details Date Type Department Care Team (Late st Contact Info) Description 03/28/2023 Telephone Cardiology, [facility] 132 [facility] [place] [address] Markus Ashraf [facility] 132 [facility] [place] [address] Appointment (DC appointment ) Allergies Active Allergy Reactions Criticality Noted Date [...] as of this encounter (statuses as of 04/09/2023) Medications Medication Sig Dispensed Refills Start Date [...] Tablet 0 02/07/2023 02/07/20 24 Active Nystatin 102104 UNIT/ML Mouth/Throat SuspensionIndicatio ns:Thrush Swish and swallow 5 mL in the morning and 5 mL at noon and 5 mL in the evening and 5 mL before bedtime. For thrush.. 240 mL 1 02/14/2023 Active Azelastine HCl 0.1 % Nasal Solution (Astelin) ADMINISTER INTO NOSTRIL TWO SPRAYS IN THE MORNING AND TWO SPRAYS BEFORE BEDTIME 30 mL 2 03/06/2023 03/05/19 Active Warfarin Sodium 2.5 MG Oral Tablet (Coumadin) Take 1 and 1/2 to 2 tablets by mouth daily as directed by [facility] 180 Tablet 3 03/06/2023 Active Nitroglycerin [...] BY MOUTH EVERY MORNING 100 Tablet 1 06/14/2022 04/04/19 24 Discontinu ed(Refill) Levothyroxine Sodium 100 MCG Oral Tablet (Levoxyl)Indication s:Hypothyroidism, postablative TAKE ONE TABLET YB MOUTH DAILY FIRST THING IN THE MORNING AT LEAST 30 MINUTES PRIOR TO BREAKFAST OR OTHER MEDS 100 Tablet 1 05/02/2022 04/04/19 24 Discontinu ed(Refill) documented as of this encounter (statuses as of 04/09/2023) Active Problems Problem Noted Date Diagnosed Date Iron deficiency anemia 09/21/2022 Last Assessment & [...] IM/IV Chest Xray Additional Comments: Followed by finisher polisher - Dr. Rashel Sales [facility] Closed nondisplaced fracture of left tibial tuberosity with routine healing 12/12/2021 Mild protein-calorie malnutrition 12/05/2021 Controlled substance agreement signed 12/05/2021 Hematoma of leg, left, subsequent encounter 09/2021 Overview: [facility] ER ulstrasound shows hematoma calf, INR 4.2, [...] & Plan: Symptoms well controlled on omeprazole intermission coordinator current use of anticoagulant therapy 0 05/10/2004 Overview: ICD-10 update of inactive term Rheumatic heart disease 03/05/2002 Old myocardial infarct 01/02/2001 Last Assessment & Plan: Continue Crestor 20 mg daily S/P mitral valve replacement Last Assessment & Plan: Chronic AC coumadin Atherosclerosis of [place] co ronary artery of men[place]inee heart without angina pectoris documented as of this encounter (statuses as of 04/09/2023) Resolved Problems Problem Noted Date Diagnosed Date [...] Overview: Per CKD protocol #1 ORBIT-[employer] Research Other*[id number] 06/02/2010 04/18/2011 Overview: PROJECT: #[id number], SPONSOR: Aileen, PI: Adolfo De Jesus MD [...] can be closed. CONTACT: Roberto Carlos Huertas, Malted Milk Masher Type 2 diabetes mellitus wit h hemoglobin A1c goal of less than 7.0% 04/24/2010 08/29/2018 Overview: ICD-10 update of inactive term ACTIVE CASE MANAGEMENT Ksasie Anthony RN [phone] 05/10/19 10 12/05/2009 [...] as of this encounter (statuses as of 04/09/2023) Immunizations Name Administration Dates Next Due COVID-19 mRNA, LNP-s, No Pre serve, 2-Dose Series (Moderna) 04/19/2020,03/22/2020 COVID-19, MRNA-LNP, 23-24, P F, 30 MCG/0.3 mL, 12 YRS AND ABOVE, IM ([facility]) 12/03/2022 COVID-19, mRNA, LNP-s, PF, B ooster, [...] the money to buy more. Never true 07/31/19 23 Within the past 12 months, t he food you bought just didn't last and you didn't have money to get more. Never true 07/30/2022 Sex and Gender Information Value Date Recorded [...] encounter Miscellaneous Notes * Telephone Encounter - Ifeoma Contreras LPN - 03/28/2023 7:08 AM EST SWEEPiOG message sent regarding rescheduling [place] appointment 04/02/2023 documented in this encounter Plan of Treatment Upcoming Encounters Date Type Department Care Team (Late st Contact Info) Description 04/10/2023 6:00 AM EST Anticoagulation Pharmacy Call Center [address] [place] [address] [facility], [facility] 58 [address] [place] [address] 04/10/2023 10:00 AM EST Laboratory Lab Mobile [facility]lebotomy [facility] [address] [place] [address] [facility] Mobile Home Draw [address] [place] [address] 04/16/2023 9:30 AM EST Cardiac Studies Cardiology [address] [place] [address] MovMarkus ybarra [facility] [address] [place] [address] 04/24/2023 10:00 AM EST [facility] Visit [facility] 132 [facility] [place] [address] Valentina Laws, RN [address] [place] [address] 06/04/2023 1:30 PM EDT Office Visit Allergy/Immunology [facility] [address] [place] [address] Macario Pathak MD [address] [place] [address] 06/10/2023 12:20 PM EDT Office Visit Family Medicine [address] [place] [address] Shara Ray MD [address] [place] [address] [place] [address] 06/21/2023 8:00 AM EDT Laboratory Lab Mobile Phlebotomy [facility] [address] [place] [address] [facility] Mobile Home Draw [address] [place] [address] 06/24/2023 11:00 AM EDT Office Visit Hematology/Oncology [facility] [address] [place] [address] Bouchra Del Cid CRNP [address] [place] [address] 08/05/2023 1:00 PM EDT Nurse Only Ancillary [address] [place] [address] Movlaylaey, Nurse [address] [place] [address] 09/20/2023 8:00 AM EDT Laboratory Lab Mobile Phlebotomy [facility] [address] [place] [address] [facility] Mobile Home Draw [address], [place] [address] 09/24/2023 11:30 AM EDT Office Visit Nephrology, [facility] [address] [place], [place] [address] ZeKary bliss PA-C 200 [facility] [place], [place] [address] 12/20/2023 8:00 AM EDT Laboratory Lab Mobile Phlebotomy [facility] [address] [place] [address] [facility] Mobile Home Draw [address] [place] [address] 03/27/2024 8:00 AM EST Laboratory Lab Mobile Phlebotomy [facility] [address], [place] [phone] [facility] Mobile Home Draw [address] [place] [address] Scheduled Procedures Name Priority Associated Diagnoses Date/Ti [...] 0 09/02/2019, 08/29/2018, Additional history exists GFR 10/02/2023 04/03/2023, 02/0 02/2023, 03/13/2023, Additional history exists Mammogram 11/16/2023 11/15/2022, 10/20, 07/03/2021, Additional history exists Albumin/Creatinine Ratio 12/04/2023 023, 02/05/2022, 01/26/2021, Additional history exists CKD HGB USE SMARTSET 05094 03/06/202403/06, 03/06/2023, 12/19/2022, Additional history exists CKD PHOS USE SMARTSET 59589 03/21/2024 02/0 02/2023, 12/19/2022, 11/28/2022, Additional history [...] this encounter Medical Devices Implanted Type Area Patient Registrar Device Identifier Shelf Expiration Date Model / Serial / Lot [place] Suture Biocomposite - Sn/A - [id number] Implanted:Qty: 2 on 12/13/2021 by Moris Jimenez DO at OR [facility] Left: Leg Lower [employer] 07/18/2024 [id number] / N/A / [id number] Vitoss Bbtrauma Foam Pack - [id number] - [id number] Implanted:Qty: 1 on 12/13/2021 by Moris Jimenez DO at OR [facility] Left: Leg Lower MICHA : TRAUMA 01/15/2022 [id number] / [id number] / [id number] documented as of this encounter Advance Directives Latest Code Status on File Code Status Date Activated Date Inactivated Comments Full Code 12/12/2021 7:18 PM 12/20/2021 6:08 PM This order reflects the patients wishes and were consensually agreed upon. Question Answer Comments Discussion of Advance Directives occurred with: Patient Care Teams Field Examiner Relationship Specialty Start Date End Date Shara Ray MD [address] [place] [address] [place] [phone] PCP - General Family Medicine 03/08/23 documented as of this encounter
--- OUTSIDE RECORDS SUMMARY | 2023-07-10 17:52 | External Medical Summary | Summary of Care ---
Author Name Unknown Organization [facility] [address] [facility] [address] Phone [phone] Care Team Providers Care Household Worker Name Role Phone John Blanco MD Primary Care Provider Reason for Visit * Reason Comments IV Therapy Venofer 02/19 Encounter Details Date Type Department Care Team (Latest Contact Info) Description 01/22/2023 2:00 PM EST Hem/Onc Treatment Hematology/Oncology Treatment, [address] [address] Lacy, Chair 10 Hem Onc [address] [address] Iron deficiency anemia, unspecified iron deficiency anemia [...] Active Benzonatate 100 MG Oral Capsule (Tessalon Perles)Indication s:Cough Take by mouth 1 Capsule as needed in the morning AND 1 Capsule as needed at noon AND 1 Capsule as needed in the evening for Cough. 30 Capsule 1 07/04/19 22 Active D3-1000 25 MCG (1000 UT) Oral Capsule (Cholecalciferol) Take 1 Capsule by mouth in the morning. 0 Active Magnesium Glycinate 665 MG Oral CapsuleIndication s:Restless legs syndrome One daily 100 Capsule 1 01/24/20 22 Active valACYclovir HCl 1 GM Oral Tablet (Valtrex)Indicati ons:Cold sore Take 2 Tablets by mouth in the morning and 2 Tablets before bedtime. for cold sores. 4 Tablet 11 05/31/19 23 Active Omeprazole 20 MG Oral Capsule Delayed Release (PriLOSEC)Indicat ions:Encounter for long-term (current) use of medications,Gastr oesophageal reflux disease with esophagitis Take 1 Capsule by mouth in the morning. 100 Capsule 1 08/18/19 23 Active Estrogens Conjugated 0.625 MG/GM Vaginal Cream (Premarin)Indicat ions:Postmenopaus al atrophic vaginitis ADMINISTER INTO THE VAGINA AT BEDTIME DIRECTED 90 g 2 08/15/19 23 024 Active Albuterol Sulfate HFA 108 (90 Base) MCG/ACT Inhalation Aerosol Solution INHALE TWO PUFFS BY MOUTH EVERY MORNING - TWO PUFFS EVERY EVENING - AND EVERY 4 HOURS NEEDED FOR WORSENING COUGH, CHEST TIGHTNESS, FOR WHEEZING OR FOR SHORTNESS OF BREATH 54 g 2 08/14/19 23 024 Active Folic Acid 1 MG Oral TabletIndications :Mild protein-calorie malnutrition (HCC) TAKE ONE TABLET BY MOUTH EVERY MORNING 100 Tablet 1 07/22/19 23 024 Active Metoclopramide HCl 10 MG Oral Tablet (Reglan)Indicatio ns:Nausea TAKE ONE TABLET BY MOUTH EVERY MORNING 30 MINUTES BEFORE A MEAL 90 Tablet 1 04/17/20 23 024 Active rOPINIRole HCl 2 MG Oral Tablet (Requip)Indicatio ns:Restless legs syndrome Take 1 Tablet by mouth in the morning and 1 Tablet at noon and 1 Tablet before bedtime. 300 Tablet 3 09/12/19 Active Lidocaine HCl 4 % External Solution Apply topically to affected area once for 1 dose. Apply to mouth ulcers as needed 50 mL 0 12/07/19 Active Torsemide 100 MG Oral Tablet (Demadex)Indicati ons:Varicose veins of both legs with edema Take 1 Tablet by mouth in the morning. 100 Tablet 1 12/07/19 Active Spironolactone 25 MG Oral Tablet (Aldactone) TAKE ONE-HALF TABLET BY MOUTH IN THE MORNING 50 Tablet 1 12/11/19 23 024 Active Sucralfate 1 GM/10ML Oral Suspension (Carafate) TAKE 10 ML BY MOUTH NEEDED IN THE MORNING AND 10 ML NEEDED AT NOON AND 10 ML NEEDED IN THE EVENING AND 10 ML NEEDED BEFORE BEDTIME. 420 mL 1 12/19/19 Active Sennosides 17.2 MG TABS Take by mouth 1 Tablet at bedtime as needed for Constipation. 0 10/09/19 19 024 Discontinued Bisacodyl 10 MG Rectal Suppository Administer 1 Suppository into the rectum in the morning. 0 024 Discontinued(Bernard mendoza preference/disc ontinuation) Ipratropium-Albut keila 0.5-2.5 (3) MG/3ML Inhalation Solution (Duoneb)Indicatio ns:Chronic cough Inhale via nebulizer 3 mL in the morning AND 3 mL at noon AND 3 mL in the evening AND 3 mL before bedtime. 1080 mL 1 08/08/19 22 024 Discontinued(Me dication List Clean Up) Warfarin Sodium 5 MG Oral Tablet (Coumadin)Indicat ions:Chronic atrial fibrillation (HCC),Mixed dyslipidemia TAKE ONE-HALF TO ONE TABLET BY MOUTH ONCE DAILY DIRECTED BY ANTICOAGULATION PHARMACIST 100 Tablet 1 07/22/19 23 024 Discontinued(Me dication/Dose Changed) Citalopram Hydrobromide 10 MG Oral Tablet (CeleXA)Indicatio ns:BOBBY (generalized anxiety disorder) TAKE ONE TABLET BY MOUTH EVERY MORNING 100 Tablet 1 06/15/19 23 024 Discontinued(Re fill) Metoprolol Tartrate 25 MG Oral Tablet (Lopressor) TAKE ONE TABLET BY MOUTH TWICE A DAY IN THE MORNING AND BEFORE BEDTIME 200 Tablet 1 06/12/19 23 023 Discontinued(Re fill) Levothyroxine Sodium 100 MCG Oral Tablet (Levoxyl)Indicati ons:Hypothyroidis m, postablative TAKE ONE TABLET YB MOUTH DAILY FIRST THING IN THE MORNING AT LEAST 30 MINUTES PRIOR TO BREAKFAST OR OTHER MEDS 100 Tablet 1 05/03/19 23 024 Discontinued(Re fill) Ipratropium-Albut keila 0.5-2.5 (3) MG/3ML Inhalation Solution (Duoneb) INHALE THE CONTENTS OF ONE VIAL VIA NEBULIZER FOUR TIMES A DAY NEEDED FOR SHORTNESS OF BREATH OR WHEEZING 1080 mL 2 03/22/19 23 024 Discontinued(Re fill) Ipratropium-Albut keila 20-100 MCG/ACT Inhalation Aerosol Solution (Combivent Respimat) Inhale 1 Puff by mouth in the morning and 1 Puff at noon and 1 Puff in the evening and 1 Puff before bedtime. 12 g 3 09/06/19 024 Discontinued(Ms dication List Clean Up) Azelastine HCl 0.1 % Nasal Solution (Astelin) ADMINISTER INTO NOSTRIL TWO SPRAYS IN THE MORNING AND TWO SPRAYS BEFORE BEDTIME 30 mL 2 09/07/19 23 024 Discontinued(Re fill) Rosuvastatin Calcium 20 MG Oral Tablet (Crestor)Indicati ons:Dyslipidemia, goal LDL below 100,Hyperlipidemi a with target LDL less than 100 TAKE ONE TABLET BY MOUTH AT BEDTIME 100 Tablet 0 11/02/19 23 023 Discontinued(Re fill) Nitroglycerin 0.4 MG Sublingual Tablet Sublingual (Nitrostat)Indica tions:Old myocardial infarct,Atrial fibrillation (HCC),HTN, goal to be determined PLACE 1 TABLET UNDER THE TONGUE EVERY 5 MINUTES UP TO 3 DOSES NEEDED FOR CHEST PAIN. IF NO RELIEF CALL 911 OR GO TO ER 90 Tablet 0 12/12/19 23 024 Discontinued(Re fill) traMADol HCl 50 MG Oral Tablet (Ultram)Indicatio ns:Post-traumatic osteoarthritis of right knee,Generalized osteoarthritis,Cl osed nondisplaced fracture of left tibial tuberosity with routine healing Take 1 Tablet by mouth every 6 hours as needed for Pain, Severe. 84 Tablet 0 01/10/20 23 023 Discontinued(Re fill) Morphine Sulfate ER 15 MG Oral Tablet Extended Release (MS Contin)Indication s:Generalized osteoarthritis,He matoma of left lower leg Take 1 Tablet by mouth in the morning and 1 Tablet before bedtime. Only as needed for pain. 28 Tablet 0 01/10/20 23 023 Discontinued(Re fill) Nystatin 133326 UNIT/ML Mouth/Throat SuspensionIndicat ions:Thrush Swish and swallow 5 mL in the morning and 5 mL at noon and 5 mL in the evening and 5 mL before bedtime. For thrush.. 240 mL 1 01/16/20 23 023 Discontinued(Re fill) documented as of this encounter [...] IM/IV Chest Xray Additional Comments: Followed by package dyeing machine operator - Dr. Rashel Sales [facility] [...] the Comments) Remote Patient Monitoring Vendor: [facility] Device(s): Connected Scale Self [...] & Plan: Chronic AC coumadin Atherosclerosis of [place] co ronary artery of [place] heart without angina pectoris documented as of [...] Overview: Per CKD protocol #1 ORBIT-AF Research Other*[id number] 06/02/2010 04/18/2011 Overview: PROJECT: #[id number], SPONSOR: J&Geovanna, PI: Adolfo De Jesus MD [...] can be closed. CONTACT: Roberto Carlos Huertas, Wrecking Crane Engine Operator Type 2 diabetes mellitus wit h hemoglobin A1c goal of less than 7.0% 04/24/2010 08/29/2018 Overview: ICD-10 update of inactive term ACTIVE CASE MANAGEMENT Kassie Anthony RN [phone] 05/10/19 10 12/05/2009 ADVANCE DIRECTIVE INFORMATION 05/09/2009 [...] Sign Reading Time Taken Comments Blood Pressure 143/71 01/22/2023 2:00 PM EST Pulse 69 01/22/2023 2:00 PM EST Temperature 36.7 C (98 F) 01/22/2023 2:00 PM EST Respiratory Rate 16 01/22/2023 2:00 PM EST Oxygen Saturation 94% 01/22/2023 2:00 PM EST Inhaled Oxygen Concentration - - Weight - [...] as of this encounter Nursing Notes * Eileen Tarango RN - 01/22/2023 3:05 PM EST Chair 9. IV inserted. Patient here for Venofer /, has had IV iron in the past and tolerated without any issues. Patient is comfortable and denies further needs at this time. Safety and Risk for Injury Patient will remain free from injury. Ensure appropriate safety devices are available. Provide and maintain safe environment. Goals: Patient will remain free from injury. Possible barriers to meeting goals: ambulating with IV pole Stability of the patient: Moderately stable - low risk of patient condition declining or worsening Summary regarding today's goals: Met: pt remained free of harm today Patient tolerated treatment well without any acute issues or problems. Patient left facility in stable condition and denied any further needs. documented in this encounter Plan of Treatment Upcoming Encounters Date Type Department Care Team (Late st Contact Info) Description 04/10/2023 6:00 AM EST Anticoagulation Pharmacy Call Center [address] [place] [address] [facility] [address] 60 [facility] [address] 04/10/2023 10:00 AM EST Laboratory Lab Mobile Phlebotomy [facility] [address] [place], [place] [phone] [facility], [facility] Mobile Home Draw [address] [place] [address] 04/16/2023 9:30 AM EST Cardiac Studies Cardiology [address] [place] [address] [place], [facility] 132 [facility] [place] [address] 04/19/2023 8:15 AM EST Cardiac Studies Cardiac Studies, [facility] 132 [facility] [place] [address] 04/24/2023 10:00 AM EST [facility] Visit [facility], [facility] 132 [facility] [place] [address] Valentina Laws RN [facility] [place] [address] 06/04/2023 1:30 PM EDT Office Visit Allergy/Immunology [facility] [address] [place] [address] Macario Pathak MD [address] [place] [address] 06/10/2023 12:20 PM EDT Office Visit Family Medicine [address] [place] [address] Shara Ray MD [address] [place] [address] [place] [address] 06/21/2023 8:00 AM EDT Laboratory Lab Mobile Phlebotomy [facility] [address] [place] [address] [facility] Mobile Home Draw [address] [place] [address] 06/24/2023 11:00 AM EDT Office Visit Hematology/Oncology [facility] [address] [place] [address] Bouchra Del Cid CRNP [address] [place] [address] [place] [address] 08/05/2023 1:00 PM EDT Nurse Only Ancillary [address] [place] [address] Andriy, Nurse [address] [place] [address] 09/20/2023 8:00 AM EDT Laboratory Lab Mobile Phlebotomy [facility] [address] [place], [place] [address] [facility], [facility] Mobile Home Draw [address] [place], [place] [address] 09/24/2023 11:30 AM EDT Office Visit Nephrology, [facility] [address] [place] [address] ZemaKary velazco PA-C 200 [facility] [place] [address] 12/20/2023 8:00 AM EDT Laboratory Lab Mobile Phlebotomy [facility] [address] [place] [address] G[facility], [facility] Mobile Home Draw [address] [place] [address] 03/27/2024 8:00 AM EST Laboratory Lab Mobile Phlebotomy [facility] [address] [place] [address] [facility] Mobile Home Draw [address] [place] [address] Scheduled Procedures Name Priority Associated Diagnoses Date/Ti [...] 08/29/2018, Additional history exists GFR 10/02/2023 04/03/2023, 02/2023, 03/13/2023, Additional history exists Mammogram 11/16/2023 11/15/2022, 10/20, 07/03/2021, Additional history exists Albumin/Creatinine Ratio 12/04/2023 023, 02/05/2022, 01/26/2021, Additional history exists CKD HGB USE SMARTSET 33593 03/06/202403/06, 03/06/2023, 12/19/2022, Additional history exists CKD PHOS USE SMARTSET 00344 03/21/2024 02/0 02/2023, 12/19/2022, 11/28/2022, Additional history [...] this encounter Medical Devices Implanted Type Area Rod Puller Device Identifier Shelf Expiration Date Model / Serial / Lot [place] Suture Biocomposite - Sn/A - [id number] Implanted:Qty: 2 on 12/13/2021 by Moris Jimenez, at OR [facility] Left: Leg Lower [employer] 07/18/2024 [id number] / N/A / [id number] Vitoss Bbtrauma Foam Pack - [id number] - [id number] Implanted:Qty: 1 on 12/13/2021 by Moris Jimenez, DO at OR [facility] Left: Leg Lower MICHA : TRAUMA 01/15/2022 [id number] / [id number] / [id number] documented as of this encounter Visit Diagnoses Diagnosis Iron deficiency anemia, unspecified iron deficiency anemia type- Primary Restless leg syndrome Restless legs syndrome (RLS) documented in this encounter Administered Medications Inactive Administered Medications - up to 3 most recent administrations Medication Order MAR Action Action Date Dose Rate Site Iron Sucrose (Venofer) 300 mg in NSS 250 mL ivpb 300 mg, IV Piggyback, ONCE, 1 dose, On Sat01/22/23 at 1600, Administer over 90 Minutes Start Infusion 01/22/2023 2:30 PM EST 300 mg 166.67 mL/hr NSS infusion 500 mL, Intravenous, at 50 mL/hr, CONTINUOUS, Starting on Sat01/22/23 at 1530, Until Sat01/22/23 at 2010 Start Infusion 01/22/2023 2:28 PM EST 500 mL 50 mL/hr documented in this encounter Advance Directives Latest Code Status on File Code Status Date Activated Date Inactivated Comments Full Code 12/12/2021 7:18 PM 12/20/2021 6:08 PM This order reflects the patients wishes and were consensually agreed upon. Question Answer Comments Discussion of Advance Directives occurred with: Patient Care Teams Household Worker Relationship Specialty Start Date End Date John Blanco MD [address] [place] [address] [place] [address] PCP - General Family Medicine 04/23/18 03/07/23 documented as of this encounter
--- OUTSIDE RECORDS SUMMARY | 2023-07-10 17:52 | External Medical Summary ---
Author Name Unknown Address Unknown Organization K01:[facility] [address] [place] [address] Laboratory Report Ordering Provider Test Date Status TOÑA HONG 04/10/2023 10:55:00 Final Observation Date Value Abnormality Reference (Units ) Status BUN 04/10/2023 10:55:00 53 Above high normal 6-20 (mg/dL) Final Creatinine 04/10/2023 10:55:00 2.3 Above high normal 0.5-1.0 (mg/dL) Final Glomerular filtration rate/1.73 sq M.predicted [Volume Rate/Area] in Serum, Plasma or Blood by Creatinine-based formula (CKD-EPI) 04/10/2023 10:55:00 22 Below low normal >=60 (mL/min) Final eGFR is calculated based on the CKD-EPI 2020 equation SODIUM 04/10/2023 10:55:00 133 Below low normal 135 -146 (mmol/L) Final Potassium 04/10/2023 10:55:00 3.8 3.5-5.1 (m mol/L) Final Cl 04/10/2023 10:55:00 89 Below low normal 98- 107 (mmol/L) Final CO2 04/10/2023 10:55:00 30 22-32 (mmo l/L) Final Anion gap 04/10/2023 10:55:00 14 7-15 (mmol /L) Final Glucose 04/10/2023 10:55:00 160 Above high normal 70 -120 (mg/dL) Final Calcium 04/10/2023 10:55:00 10.1 8.4-10.2 ( mg/dL) Final Performing Location [facility] [place] [address] [place] [address]
--- OUTSIDE RECORDS SUMMARY | 2023-07-10 17:52 | External Medical Summary ---
Author Name Unknown Address Unknown Organization K01:[facility] [place] [address] [address] Laboratory Report Ordering Provider Test Date Status SONIA PANTOJA 04/10/2023 10:55:00 Final Standing order for pt/inr. < br/>Please draw pt/inr every 1 to 4 weeks as requested.
Results to [facility]

Warfarin Therapy
INR: 2.0-3.0 conventional anticoagulation
INR: 2.5-3.5 high intensity anticoagulation Observation Date Value Abnormality Reference (Units ) Status PT 04/10/2023 10:55:00 30.4 Above high normal 11 .6-15.2 (seconds) Final INR 04/10/2023 10:55:00 2.9 Above high normal 0. 8-1.2 Final Performing Location [facility] [facility] [place] [address] [place] [address]
--- OUTSIDE RECORDS SUMMARY | 2023-07-10 17:52 | External Medical Summary | Summary of Care ---
Author Name Unknown Organization [facility] Address [address] [facility] [place] [address] Phone [phone] Care Team Providers Care Skirt Maker Name Role Phone Shara Ray MD Primary Care Provide r Encounter Details Date Type Department Care Team (Late st Contact Info) Description 04/09/2023 Population Health External Data Unspecified Department Allergies [...] as of this encounter (statuses as of 04/10/2023) Medications Medication Sig Dispensed Refills Start Date [...] 100 Tablet 0 02/07/2023 4 Active Nystatin 017383 UNIT/ML Mouth/Throat SuspensionIndication s:Thrush Swish and swallow [...] as of this encounter (statuses as of 04/10/2023) Active Problems Problem Noted Date Diagnosed Date Major depressive disorder, recurrent, moderate 0 04/03/2023 Last Assessment & Plan: Mood stable on current dose celexa Other persistent atrial fibrillation 04/03/2023 Last Assessment & Plan: Rate controlled Continue coumadin Atherosclerosis of [place] co ronary artery without angina pectoris 04/03/2023 [...] IM/IV Chest Xray Additional Comments: Followed by metal technician - Dr. 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 therapy 0 05/10/2004 Overview: ICD-10 update of inactive term Rheumatic heart disease 03/05/2002 Old myocardial infarct 01/02/2001 Last Assessment & Plan: Continue Crestor 20 mg daily S/P mitral valve replacement Last Assessment & Plan: Chronic AC coumadin Atherosclerosis of [place] co ronary artery of [place] heart without angina pectoris documented as of this encounter (statuses as of 04/10/2023) Resolved Problems Problem Noted Date Diagnosed Date [...] Overview: Per CKD protocol #1 ORBIT-[employer] Research Other*[id number] 06/02/2010 04/18/2011 Overview: PROJECT: #[id number], SPONSOR: Aileen, PI: Adolfo De Jesus MD [...] can be closed. CONTACT: Roberto Carlos Huertas, Solar Panel Technician Type 2 diabetes mellitus wit h [...] as of this encounter (statuses as of 04/10/2023) Immunizations Name Administration Dates Next Due COVID-19 [...] Care Team (Late st Contact Info) Description 04/11/2023 6:00 AM EST Anticoagulation Pharmacy Call Center 58-60 [facility] [place] [address] [facility] 58 60 [facility] [place] [address] 04/16/2023 9:30 AM EST Cardiac Studies Cardiology [address] [place] [address] [place], [facility] 132 [place] [address] 04/19/2023 8:15 AM EST Cardiac Studies Cardiac Studies, [facility] 132 [place] [address] 04/24/2023 10:00 AM EST [facility] [address] [place] [address] Valentina Laws, TANISHA [address] [place] [address] 06/04/2023 1:30 PM EDT Office Visit Allergy/Immunology [facility] [address] [place] [address] Macario Pathak MD [address] [place] [address] 06/10/2023 12:20 PM EDT Office Visit Family Medicine [address] [place] [address] Shara Ray MD [address] [place] [address] [place] [address] 06/21/2023 8:00 AM EDT Laboratory Lab [place] [place] [address] [place] [address] [facility], [facility] Mobile Home Draw [address] [place] [address] 06/24/2023 11:00 AM EDT Office Visit Hematology/Oncology [facility] 200 [facility] [place] [phone] Bouchra Del Cid CRNP [address] [place] [address] 08/05/2023 1:00 PM EDT Nurse Only Ancillary [address] [place] [address] [place], Nurse [address] [place] [address] 09/20/2023 8:00 AM EDT Laboratory Lab Mobile Phlebotomy [facility] [address] [place] [address] [facility], [facility] Mobile Home Draw [address] [place] [address] 09/24/2023 11:30 AM EDT Office Visit Nephrology, [facility] [address] [place] [address] Kary Pena PA-C [address] [place] [address] 12/20/2023 8:00 AM EDT Laboratory Lab Mobile Phlebotomy [facility] [address] [place] [address] [facility], [facility] Mobile Home Draw [address] [place] [address] 03/27/2024 8:00 AM EST Laboratory Lab Mobile Phlebotomy [facility] [address] [place] [address] [facility], [facility] Mobile Home Draw [address] [place], [place] [id number] Scheduled Procedures Name Priority Associated Diagnoses Date/Ti [...] 08/29/2018, Additional history exists GFR 10/02/2023 04/03/2023, 0202/2023, 03/13/2023, Additional history exists Mammogram 11/16/2023 11/15/2022, 10/20, 07/03/2021, Additional history exists Albumin/Creatinine Ratio 12/04/2023 023, 02/05/2022, 01/26/2021, Additional history exists CKD HGB USE SMARTSET 51972 03/06/202403/06, 03/06/2023, 12/19/2022, Additional history exists CKD PHOS USE SMARTSET 47936 03/21/2024 02/0 02/2023, 12/19/2022, 11/28/2022, Additional history [...] this encounter Medical Devices Implanted Type Area Truck Loader Device Identifier Shelf Expiration Date Model / Serial / Lot Sunburst Suture Biocomposite - Sn/A - [id number] Implanted:Qty: 2 on 12/13/2021 by Moris Jimenez, DO at OR [facility] Left: Leg Lower [employer] 07/18/2024 AR-2324BCC / N/A / [id number] Vitoss Bbtrauma Foam Pack - [id number] - [id number] Implanted:Qty: 1 on 12/13/2021 by Moris Jimenez, DO at OR [facility] Left: Leg Lower MICHA : TRAUMA 01/15/2022 [id number] / [id number] / [id number] documented as of this encounter Advance Directives Latest Code Status on File Code Status Date Activated Date Inactivated Comments Full Code 12/12/2021 7:18 PM 12/20/2021 6:08 PM This order reflects the patients wishes and were consensually agreed upon. Question Answer Comments Discussion of Advance Directives occurred with: Patient Care Teams Skirt Maker Relationship Specialty Start Date End Date Shara Ray MD [address] [place] [address] [place] [phone] PCP - General Family Medicine 03/08/23 documented as of this encounter
--- OUTSIDE RECORDS SUMMARY | 2023-07-10 17:53 | External Medical Summary | Summary of Care ---
Author Name Unknown Organization [facility] Address [address] [facility] [place] [address] Phone [phone] Care Team Providers Care Teacher Vocal Name Role Phone Shara Ray MD Primary Care Provide r Reason for Visit * Reason Onset Date Comments Appointment 03/28/2023 [facility] appointment Encounter Details Date Type Department Care Team (Late st Contact Info) Description 03/28/2023 Telephone Cardiology, [facility] 132 [facility] [place] [address] Markus Ashraf [facility] 132 [facility] [place] [address] Appointment (DC appointment ) Allergies Active Allergy [...] Tablet 0 02/07/2023 02/07/20 24 Active Nystatin 992598 UNIT/ML Mouth/Throat SuspensionIndicatio ns:Thrush Swish and swallow [...] tablets by mouth daily as directed by [facility] 180 Tablet 3 03/06/2023 Active Nitroglycerin 0.4 [...] IM/IV Chest Xray Additional Comments: Followed by compressor technician - Dr. Rashel Sales [facility] Closed nondisplaced fracture of left tibial tuberosity with routine healing 12/12/2021 Mild protein-calorie malnutrition 12/05/2021 Controlled substance agreement signed 12/05/2021 Hematoma of leg, left, subsequent encounter 09/2021 Overview: [facility] ER ulstrasound shows hematoma calf, INR 4.2, [...] Symptoms well controlled on omeprazole long term current use of anticoagulant therapy 0 05/10/2004 Overview: ICD-10 update of inactive term Rheumatic heart disease 03/05/2002 Old myocardial infarct 01/02/2001 Last Assessment & Plan: Continue Crestor 20 mg daily S/P mitral valve replacement Last Assessment & Plan: Chronic AC coumadin Atherosclerosis of [place] co ronary artery of [place] heart without angina pectoris documented as [...] Overview: Per CKD protocol #1 ORBIT-AF Research Other*[id number] 06/02/2010 04/18/2011 Overview: PROJECT: #[id number], SPONSOR: Aileen, PI: Adolfo De Jesus MD [...] can be closed. CONTACT: Roberto Carlos Huertas, Dealer Compliance Representative Type 2 diabetes mellitus wit h hemoglobin [...] MCG/0.3 mL, 12 YRS AND ABOVE, IM [facility] 12/03/2022 COVID-19, mRNA, LNP-s, PF, B [...] Contreras LPN - 03/28/2023 7:08 AM EST JauntG message sent regarding rescheduling [place] appointment 04/02/2023 documented in this encounter Plan of Treatment Upcoming Encounters Date Type Department Care Team (Late st Contact Info) Description 04/10/2023 6:00 AM EST Anticoagulation Pharmacy Call Center 58[address] [place] [address] [facility], [facility] 58 [address] [place] [address] 04/10/2023 10:00 AM EST Laboratory Lab Mobile Phlebotomy [facility] [place] [address] [place] [address] [facility] Mobile Home Draw [address] [place] [address] 04/16/2023 9:30 AM EST Cardiac Studies Cardiology [address] [place] [address] MovMarkus ybarra [facility] [address] [place] [address] 04/24/2023 10:00 AM EST [facility] 132 [facility] [place] [address] Valentina Laws, RN [address] [place] [address] 06/04/2023 1:30 PM EDT Office Visit Allergy/Immunology [facility] [address] [place] [address] Macario Pathak MD [address] [place] [address] 06/10/2023 12:20 PM EDT Office Visit Family Medicine [address] [place] [address] Shara Ray MD [address] [place] [address] [place] [address] 06/21/2023 8:00 AM EDT Laboratory Lab Mobile Phlebotomy [facility] [place] [address] [place] [address] [facility] Mobile Home Draw [address] [place] [address] 06/24/2023 11:00 AM EDT Office Visit Hematology/Oncology [facility] [address] [place] [address] Bouchra Del Cid CRNP [address] [place] [address] 08/05/2023 1:00 PM EDT Nurse Only Ancillary [address] [place] [address] [place], Nurse [address] [place] [address] 09/20/2023 8:00 AM EDT Laboratory Lab Mobile Phlebotomy [facility] [address] [place] [address] [facility], [facility] Mobile Home Draw [address] [place], [place] [address] 09/24/2023 11:30 AM EDT Office Visit Nephrology, [facility] [address] [place], [place] [address] ZeKary bliss PA-C 200 [facility] [place], [place] [address] 12/20/2023 8:00 AM EDT Laboratory Lab Mobile Phlebotomy [facility] [address] [place] [address] [facility] Mobile Home Draw [address] [place] [address] 03/27/2024 8:00 AM EST Laboratory Lab Mobile Phlebotomy [facility] [place] [address] [place], [place] [id number] [facility] Mobile Home Draw [address] [place] [address] Scheduled Procedures Name Priority Associated Diagnoses Date/Ti [...] Additional history exists CKD HGB USE SMARTSET 71545 03/06/202403/06, 03/06/2023, 12/19/2022, Additional history exists CKD PHOS USE SMARTSET 64884 03/21/2024 02/0 02/2023, 12/19/2022, 11/28/2022, Additional history [...] encounter Medical Devices Implanted Type Area Product Designer Device Identifier Shelf Expiration Date Model / Serial / Lot Wilburn Suture Biocomposite - Sn/A - [id number] Implanted:Qty: 2 on 12/13/2021 by Moris Jimenez DO at OR [facility] Left: Leg Lower [employer] 07/18/2024 AR-2324BCC / N/A / [id number] Vitoss Bbtrauma Foam Pack - [id number] - [id number] Implanted:Qty: 1 on 12/13/2021 by Moris Jimenez DO at OR [facility] Left: Leg Lower MICHA : TRAUMA 01/15/2022 [id number] / [id number] / [id number] documented as of this encounter Advance Directives Latest Code Status on File Code Status Date Activated Date Inactivated Comments Full Code 12/12/2021 7:18 PM 12/20/2021 6:08 PM This order reflects the patients wishes and were consensually agreed upon. Question Answer Comments Discussion of Advance Directives occurred with: Patient Care Teams Teacher Vocal Relationship Specialty Start Date End Date Shara Ray MD [address] [place] [address] [place] [phone] PCP - General Family Medicine 03/08/23 documented as of this encounter
--- OUTSIDE RECORDS SUMMARY | 2023-07-10 17:54 | External Medical Summary | Summary of Care ---
Author Name Unknown Organization [facility] Address [address] [facility] [address] Phone [phone] Care Team Providers Care Miniature Train Driver Name Role Phone John Blanco MD Primary Care Provider Reason for Visit * Reason Comments IV Therapy Venofer 02/19 Encounter Details Date Type Department Care Team (Latest Contact Info) Description 01/22/2023 2:00 PM EST Hem/Onc Treatment Hematology/Oncology Treatment, [place] [address] [place] [address] Lacy, Chair 10 Hem [facility] 200 [place] [address] Iron deficiency anemia, unspecified iron deficiency anemia [...] as of this encounter (statuses as of 04/08/2023) Medications Medication Sig Dispensed Refills Start Date [...] MINUTES BEFORE A MEAL 90 Tablet 1 06/05/19 23 024 Active rOPINIRole HCl 2 MG [...] THE MORNING 50 Tablet 1 12/11/19 23 Active Sucralfate 1 GM/10ML Oral Suspension (Carafate) [...] before bedtime. 12 g 3 09/06/19 024 Discontinued(Ca dication List Clean Up) Azelastine HCl 0.1 [...] 0 01/10/20 23 023 Discontinued(Re fill) Nystatin 822421 UNIT/ML Mouth/Throat SuspensionIndicat ions:Thrush Swish and swallow 5 mL in the morning and 5 mL at noon and 5 mL in the evening and 5 mL before bedtime. For thrush.. 240 mL 1 01/16/20 23 023 Discontinued(Re fill) documented as of this encounter (statuses as of 04/08/2023) Active Problems Problem Noted Date Diagnosed Date [...] Chest Xray Additional Comments: Followed by manager small business - Dr. Rashel Sales [facility] Closed nondisplaced fracture of left tibial tuberosity with routine healing 12/12/2021 Mild protein-calorie malnutrition 12/05/2021 Controlled substance agreement signed 12/05/2021 Hematoma of leg, left, subsequent encounter 09/2021 Overview: [facility] ER ulstrasound shows hematoma calf, INR [...] in the Comments) Remote Patient Monitoring Vendor: [facility] Device(s): Connected Scale Self - Management Plan [...] & Plan: Chronic AC coumadin Atherosclerosis of [place] co ronary artery of [place] heart without angina pectoris documented as of this encounter (statuses as of 04/08/2023) Resolved Problems Problem Noted Date Diagnosed Date [...] Overview: Per CKD protocol #1 ORBIT-AF Research Other*[id number] 06/02/2010 04/18/2011 Overview: PROJECT: #[id number], SPONSOR: Geovanna&Geov[employer], PI: Adolfo De Jesus MD [...] can be closed. CONTACT: Roberto Carlos Huertas, Correctional Substance Abuse Counselor Type 2 diabetes mellitus wit h hemoglobin [...] as of this encounter (statuses as of 04/08/2023) Immunizations Name Administration Dates Next Due COVID-19 [...] Care Team (Late st Contact Info) Description 04/08/2023 10:30 AM EST Imaging Radiology [facility] [address] [place] [address] 04/10/2023 6:00 AM EST Anticoagulation Pharmacy Call Center 58-[address] [place] [address] [facility], [facility] 58 60 [place] [address] 04/10/2023 10:00 AM EST Laboratory Lab [place] [facility] [address] [place] [address] [facility] Mobile Home Draw [address] [place] [address] 04/11/2023 10:00 AM EST Office Visit Cardiology, [facility] 132 [place] [address] Hadley Molina MD 132 [place] [address] 04/16/2023 9:30 AM EST Cardiac Studies Cardiology [address] [place] [address] Markus Ashraf [facility] 132 [facility] [place] [address] 04/24/2023 10:00 AM EST [facility] 132 [facility] [place] [address] Valentina Laws, TANISHA 132 [place] [address] 06/04/2023 1:30 PM EDT Office Visit Allergy/Immunology [facility] [place] [facility] [place] [address] Macario Pathak MD 200 [facility] [place] [address] 06/10/2023 12:20 PM EDT Office Visit Family Medicine [address] [place] [address] Shara Ray MD [address] [place] [address] [place] [address] 06/21/2023 8:00 AM EDT Laboratory Lab Mobile Phlebotomy [facility] [address] [place] [address] [facility] Mobile Home Draw [address] [place] [address] 06/24/2023 11:00 AM EDT Office Visit Hematology/Oncology [facility] 200 [facility] [place] [address] Bouchra Del Cid CRNP [address] [place], [place] [address] [address] 08/05/2023 1:00 PM EDT Nurse Only Ancillary [address] [place] [address] Andriy, Nurse [address] [place] [address] 09/20/2023 8:00 AM EDT Laboratory Lab Mobile Phlebotomy [facility] [address] [place] [address] [facility] Mobile Home Draw [address] [place] [address] 09/24/2023 11:30 AM EDT Office Visit Nephrology, [facility] [address] [place] [address] ZemaKary velazco PA-C 200 [place] [address] 12/20/2023 8:00 AM EDT Laboratory Lab Mobile Phlebotomy [facility] [address] [place] [address] [facility] Mobile Home Draw [address] [place] [address] 03/27/2024 8:00 AM EST Laboratory Lab Mobile Phlebotomy [facility] [address] [place] [address] [facility] Mobile Home Draw [address] [place] [address] Scheduled Procedures Name Priority Associated Diagnoses Date/Ti [...] 08/29/2018, Additional history exists GFR 10/02/2023 04/03/2023, 020 02/2023, 03/13/2023, Additional history exists Mammogram 11/16/2023 11/15/2022, 10/20, 07/03/2021, Additional history exists Albumin/Creatinine Ratio 12/04/2023 023, 02/05/2022, 01/26/2021, Additional history exists CKD HGB USE SMARTSET 80835 03/06/202403/06, 03/06/2023, 12/19/2022, Additional history exists CKD PHOS USE SMARTSET 82798 03/21/2024 020 02/2023, 12/19/2022, 11/28/2022, Additional history exists O2 [...] this encounter Medical Devices Implanted Type Area Noc Technician Device Identifier Shelf Expiration Date Model / Serial / Lot Heber Suture Biocomposite - Sn/A - [id number] Implanted:Qty: 2 on 12/13/2021 by Moris Jimenez, DO at OR [facility] Left: Leg Lower [employer] 07/18/2024 AR-2324BCC / N/A / [id number] Vitoss Bbtrauma Foam Pack - [id number] - [id number] Implanted:Qty: 1 on 12/13/2021 by Moris Jimenez, DO at OR [facility] Left: Leg Lower MICHA : TRAUMA 01/15/2022 [id number] / [id number] / [id number] documented as of this encounter Visit Diagnoses [...] Advance Directives occurred with: Patient Care Teams Miniature Train Driver Relationship Specialty Start Date End Date John Blanco MD [address] [place] [address] [place] [address] PCP - General Family Medicine 04/23/18 03/07/23 documented as of this encounter
--- OUTSIDE RECORDS SUMMARY | 2023-07-10 17:54 | External Medical Summary | Summary of Care ---
Author Name Unknown Organization [facility] Address [address] [facility] [address] Phone [phone] Care Team Providers Care Associate Professor Of Archaeology Name Role Phone John Blanco MD Primary Care Provider [phone] Reason for Visit * Reason Comments IV Therapy Venofer 02/19 Encounter Details Date Type Department Care Team (Latest Contact Info) Description 01/22/2023 2:00 PM EST Hem/Onc Treatment Hematology/Oncology Treatment, [address] [address] Lacy, Chair 10 Hem Onc [address] [address] Iron deficiency anemia, unspecified iron deficiency anemia [...] before bedtime. 12 g 3 09/06/19 024 Discontinued(Ne dication List Clean Up) Azelastine HCl 0.1 [...] 0 01/10/20 23 023 Discontinued(Re fill) Nystatin 062745 UNIT/ML Mouth/Throat SuspensionIndicat ions:Thrush Swish and swallow [...] IM/IV Chest Xray Additional Comments: Followed by dough catcher - Dr. Rashel Sales [facility] [...] in the Comments) Remote Patient Monitoring Vendor: [facility] Device(s): Connected Scale Self - Management Plan [...] & Plan: Symptoms well controlled on omeprazole director visual current use of anticoagulant therapy 0 05/10/2004 Overview: ICD-10 update of inactive term Rheumatic heart disease 03/05/2002 Old myocardial infarct 01/02/2001 Last Assessment & Plan: Continue Crestor 20 mg daily S/P mitral valve replacement Last Assessment & Plan: Chronic AC coumadin Atherosclerosis of [place] co ronary artery of [place] heart without angina pectoris documented as of [...] Overview: Per CKD protocol #1 ORBIT-AF Research Other*[id number] 06/02/2010 04/18/2011 Overview: PROJECT: #[id number], SPONSOR: J&Geovanna, PI: Adolfo De Jesus MD [...] can be closed. CONTACT: Roberto Carlos Huertas, Radiographer Technologist Type 2 diabetes mellitus wit h hemoglobin A1c goal of less than 7.0% 04/24/2010 08/29/2018 Overview: ICD-10 update of inactive term ACTIVE CASE MANAGEMENT Kassie Anthony RN [phone] 05/10/19 10 12/05/2009 ADVANCE DIRECTIVE INFORMATION 05/09/2009 [...] AM EST Anticoagulation Pharmacy Call Center [address] [place] [address] [facility] [address] [place] [address] 04/10/2023 10:00 AM EST Laboratory Lab Mobile Phlebotomy [facility] [address] [place], [place] [id number] [facility], [facility] Mobile Home Draw [address] [place] [address] 04/16/2023 9:30 AM EST Cardiac Studies Cardiology [address] [place] [address] [place], Pacer Clinic [facility] [address] [place] [address] 04/24/2023 10:00 AM EST [facility] Visit [facility] [address] [place] [address] Valentina Laws, TANISHA 132 [facility] [place] [address] 06/04/2023 1:30 PM EDT Office Visit Allergy/Immunology [facility] [address] [place] [address] Macario Pathak MD [address] [place] [address] 06/10/2023 12:20 PM EDT Office Visit Family Medicine [address] [place] [address] Shara Ray MD [address] [place] [address] [place] [address] 06/21/2023 8:00 AM EDT Laboratory Lab Mobile Phlebotomy [facility] [address] [place] [address] [facility], [facility] Mobile Home Draw [address] [place] [address] 06/24/2023 11:00 AM EDT Office Visit Hematology/Oncology [facility] 200 [facility] [place] [phone] Bouchra Del Cid CRNP [address] [place] [address] [place] [address] 08/05/2023 1:00 PM EDT Nurse Only Ancillary [address] [place] [address] [place], Nurse [address] [place] [address] 09/20/2023 8:00 AM EDT Laboratory Lab Mobile Phlebotomy [facility] [address] [place], [place] [phone] [facility], [facility] Mobile Home Draw [address] [place] [address] 09/24/2023 11:30 AM EDT Office Visit Nephrology, [facility] [address] [place] [address] Kary Pena PA-C 200 [facility] [place], [place] [address] 12/20/2023 8:00 AM EDT Laboratory Lab Mobile Phlebotomy [facility] [address] [place] [address] [facility], [facility] Mobile Home Draw [address] [place] [address] 03/27/2024 8:00 AM EST Laboratory Lab Mobile Phlebotomy [facility] [address] [place] [address] [facility], [facility] Mobile Home Draw [address] [place] [address] Scheduled Procedures Name Priority Associated Diagnoses Date/Ti [...] Additional history exists CKD HGB USE SMARTSET 85565 03/06/202403/06, 03/06/2023, 12/19/2022, Additional history exists CKD PHOS USE SMARTSET 77798 03/21/2024 02/0 02/2023, 12/19/2022, 11/28/2022, Additional history [...] this encounter Medical Devices Implanted Type Area Transportation Engineer Device Identifier Shelf Expiration Date Model / Serial / Lot [place] Suture Biocomposite - Sn/A - [id number] Implanted:Qty: 2 on 12/13/2021 by Moris Jimenez, DO at OR [facility] Left: Leg Lower [employer] 07/18/2024 [id number] / N/A / [id number] Vitoss Bbtrauma Foam Pack - [id number] - [id number] Implanted:Qty: 1 on 12/13/2021 by Moris Jimenez, DO at OR [facility] Left: Leg Lower MICHA : TRAUMA 01/15/20228181-6969 / [id number] / [id number] documented as of this encounter Visit Diagnoses [...] Advance Directives occurred with: Patient Care Teams Associate Professor Of Archaeology Relationship Specialty Start Date End Date John Blanco MD [address] [place] [address] [place] [phone] PCP - General Family Medicine 04/23/18 03/07/23 documented as of this encounter
--- OUTSIDE RECORDS SUMMARY | 2023-07-10 17:54 | External Medical Summary | Summary of Care ---
Author Name Unknown Organization [facility] Address [address] [facility] [facility] [address] Phone [phone] Care Team Providers Care Crystal Syrup Maker Name Role Phone Shara Ray MD Primary Care Provide r Reason for Referral * Precert (Within 10 days (routine)) - Authorized Specialty Diagnoses / Procedures Referred By Contac t Referred To Contact Cardiac Studies Diagnoses S/P mitral valve replacement Acute on chronic right-sided heart failure (HCC) Procedures ECHO, COMPLETE (2D), TRANS-THORACIC Hadley Molina MD [address] [employer] [place] [address] Referral ID Status Reason Start Date Expiration Date V isits Requested Visits Authorized [id number] Authorized Precert 04/22/2023 999 999 Reason for Visit * Reason Comments Follow Up Encounter Details Date Type Department Care Team (Late st Contact Info) Description 04/08/2023 11:30 AM EST Office Visit Cardiology, [facility] [address] [place] [address] Hadley Molina MD [address] [place] [address] S/P mitral valve replacement*; Acute on chronic right-sided heart failure (HCC) [...] 100 Tablet 0 02/07/2023 4 Active Nystatin 981440 UNIT/ML Mouth/Throat SuspensionIndication s:Thrush Swish and swallow [...] controlled Continue coumadin Atherosclerosis of [place] co ronary artery without angina pectoris 04/03/2023 [...] IM/IV Chest Xray Additional Comments: Followed by pulp roller - [facility] Rashel Sales [facility] [...] in the Comments) Remote Patient Monitoring Vendor: [facility] Device(s): Connected Scale Self - Management Plan [...] & Plan: Symptoms well controlled on omeprazole meterman current use of anticoagulant therapy 0 05/10/2004 Overview: ICD-10 update of inactive term Rheumatic heart disease 03/05/2002 Old myocardial infarct 01/02/2001 Last Assessment & Plan: Continue Crestor 20 mg daily S/P mitral valve replacement Last Assessment & Plan: Chronic AC coumadin Atherosclerosis of [place] co ronary artery of [place] heart without angina pectoris documented as of [...] Overview: Per CKD protocol #1 ORBIT-AF Research Other*[id number] 06/02/2010 04/18/2011 Overview: PROJECT: #[id number], SPONSOR: Aileen, PI: Adolfo De Jesus MD [...] can be closed. CONTACT: Roberto Carlos Huertas, Api Product Manager Type 2 diabetes mellitus wit h [...] MCG/0.3 mL, 12 YRS AND ABOVE, IM (Lutonix-ComirnatHonk) 12/03/2022 COVID-19, mRNA, LNP-s, PF, B ooster, [...] Sign Reading Time Taken Comments Blood Pressure 120/62 04/08/2023 11:31 AM EST Pulse 68 04/08/2023 11:31 AM EST Temperature - - Respiratory Rate 16 04/08/2023 11:31 AM EST Oxygen Saturation - - Inhaled Oxygen Concentration - - Weight 68 kg (150 lb) 04/08/2023 11:31 AM EST Height - - Body Mass Index 33.63 03/19/2023 1:02 PM EST documented in this [...] Progress Notes * Hadley Molina MD - 04/08/2023 11:31 AM EST April 08, 2023 Cardiology Follow Up Referring Provider: PCP: DERRICK OLIVERA [address] [place] [address] [place] [address] Chief Complaint: filling up with fluid SUBJECTIVE: [...] therapy Patient presents today on requested follow-up notes over the past 1 to 2 months gradually increasing weight abdominal girth and edema. Symptoms over the past week more progressive and not responsive to increased dose of diuretics. No chest pains. No tachy palpitations. Sharp right flank pain once earlier today no recurrence. No dysuria hematuria. Renal ultrasound pending from this morning Patient underwent nocturnal oximetry results pending Watches salt in diet but does drink significant amount of fluids No difficulties with medications Chronic dyspnea but no productive cough A Complete Review of Systems is as stated above or negative. Patient Active Problem List Diagnosis Code Rheumatic heart disease I09.9 meterman current use of anticoagulant therapy Z79.01 S/P mitral valve replacement Z95.2 Gastroesophageal reflux disease with esophagitis without hemorrhage K21.00 Generalized osteoarthritis M15.9 Hypothyroidism, postablative E89.0 Atherosclerosis of [place] coronary artery of [place] heart without angina pectoris I25.10 Dyslipidemia, goal [...] disease, without long-term current use of insulin ([facility]) E11.22, N18.32 Hypertensive heart and kidney disease with chronic diastolic congestive heart failure and stage 3b chronic kidney disease ([facility]) I13.0, I50.32, N18.32 Recurrent falls R29.6 Generalized anxiety disorder F41.1 Chronic cough R05.3 Other injury of unspecified body region, subsequent encounter T14.8XXD Mild protein-calorie malnutrition ([facility]) E44.1 Hematoma of leg, left, subsequent encounter S80.12XD Controlled substance agreement signed Z79.899 Closed nondisplaced fracture of left tibial tuberosity with routine healing S82.155D COPD, group B, by GOLD 2017 classification ([facility]) J44.9 Iron deficiency anemia D50.9 Restless leg syndrome G25.81 Major depressive disorder, recurrent, moderate ([facility]) F33.1 Other persistent atrial fibrillation ([facility]) I48.19 Atherosclerosis of [place] coronary artery without angina pectoris I25.10 Review [...] 1 Capsule by mouth in the morning. valACYclovir HCl 1 GM Oral Tablet (Valtrex) [...] mouth ulcers as needed 50 mL 0 Torsemide 100 MG Oral Tablet (Demadex) Take 1 Tablet by mouth in the morning. 100 Tablet 1 Spironolactone 25 MG Oral Tablet (Aldactone) TAKE [...] MOUTH AT BEDTIME 100 Tablet 0 Nystatin 447447 UNIT/ML Mouth/Throat Suspension Swish and swallow 5 [...] by mouth daily as directed by [facility] 180 Tablet 3 Nitroglycerin 0.4 MG [...] of breath or wheezing 1080 mL 2 Losartan Potassium 25 MG Oral Tablet (Cozaar) Take 1 Tablet by mouth in the morning. 90 Tablet 3 Citalopram Hydrobromide 10 MG Oral Tablet (CeleXA) TAKE ONE TABLET BY MOUTH EVERY MORNING 100 Tablet 1 Levothyroxine Sodium 100 MCG Oral Tablet (Levoxyl) TAKE ONE TABLET by MOUTH DAILY FIRST THING IN THE MORNING AT LEAST 30 MINUTES PRIOR TO BREAKFAST OR OTHER MEDS 100 Tablet 1 Magnesium Glycinate 665 MG Oral Capsule One daily 100 Capsule 1 No current facility-administered medications for this visit. OBJECTIVE/PHYSICAL EXAMINATION: BP 120/62 | Pulse 68 | Resp 16 | Wt 68 kg (150 lb) | BMI 33.63 kg/m | BSA 1.64 m General: no acute distress and stated [...] no joint inflammation, no deforming arthritis Extremities: 1-2+ lower extremity edema left greater right no [...] with preserved ejection fraction Persistent atrial fibrillation Patient is being treated with torsemide 100 mg daily with with recent increase to 150 mg daily x3 days but little change in weight PLAN: Restrict fluids to 2 L per day Add metolazone 5 mg 1/2 hour prior to torsemide tomorrow question possible weekly depending on results BMP Saturday Repeat echocardiogram ordered DISPOSITION: Routine appointment in 3 months Hadley Molina MD Cardiology [address] [address] documented in this encounter Nursing Notes * Elisha Gutierrez LPN - 04/08/2023 11:27 AM EST Examination Room: 14 Name: Abdi Bowling Date of : 1955 Reason for Visit: acute Problems/Concerns: C/o pain on R side under breast, SOB and weight gain Interim Hosp(s): denies Chest Pain/SOB: Denies cp today MyChart Discussed: ALREADY ACTIVE Patient was instructed to not get up on the exam table until directed and assisted by their provider; patient is to remain seated in the chair/ wheelchair/ exam table for fall prevention and safety reasons. Patient is aware staff will assist stepping down off exam table with personnel. documented in this encounter Plan of Treatment Upcoming Encounters Date Type Department Care Team (Late st Contact Info) Description 04/10/2023 6:00 AM EST Anticoagulation Pharmacy Call Center [address] [place] [address] [facility] [address] [place] [address] 04/10/2023 10:00 AM EST Laboratory Lab Mobile Phlebotomy [facility] [address] [place] [address] [facility], [facility] Mobile Home Draw [address] [place] [address] 04/16/2023 9:30 AM EST Cardiac Studies Cardiology [address] [place] [address] Markus Ashraf [facility] 132 [facility] [place] [address] 04/24/2023 10:00 AM EST [facility] Visit [facility] 132 [facility] [place] [address] Valentina Laws RN [address] [place] [address] 06/04/2023 1:30 PM EDT Office Visit Allergy/Immunology [facility] [address] [place] [address] Macario Pathak MD [address] [place] [address] 06/10/2023 12:20 PM EDT Office Visit Family Medicine [address] [place] [phone] Shara Ray MD [address] [place] [address] [place] [address] 06/21/2023 8:00 AM EDT Laboratory Lab Mobile Phlebotomy [facility] [address] [place] [address] [facility], [facility] Mobile Home Draw [address] [place] [address] 06/24/2023 11:00 AM EDT Office Visit Hematology/Oncology [facility] [address] [place] [address] Bouchra Del Cid CRNP [address] [place] [address] 08/05/2023 1:00 PM EDT Nurse Only Ancillary [address] [place] [address] [place], Nurse [address] [place] [address] 09/20/2023 8:00 AM EDT Laboratory Lab Mobile Phlebotomy [facility] [address] [place], [place] [address] [facility] Mobile Home Draw [address] [place], [place] [address] 09/24/2023 11:30 AM EDT Office Visit Nephrology, [facility] 200 [facility] [place], [place] [address] ZeKary bliss PA-C 200 [facility] [place], [place] [address] 12/20/2023 8:00 AM EDT Laboratory Lab Mobile Phlebotomy [facility] [address] [place] [address] Gm, [facility] Mobile Home Draw [address] [place] [address] 03/27/2024 8:00 AM EST Laboratory Lab Mobile Phlebotomy [facility] [address] [place] [address] [facility], [facility] Mobile Home Draw [address] [place] [address] Scheduled Orders Name Type Priority Associated Diagnoses Orde r Schedule BASIC METABOLIC PANEL Lab Routine S/P mitral valve replacement Acute on chronic right-sided heart failure (HCC) Expected: 04/10/2023, Expires: 04/08/2024 ECHO, COMPLETE (2D), TRANS-THORACIC Echocardiology Routine S/P mitral valve replacement Acute on chronic right-sided heart failure (HCC) Expected: 04/22/2023 (Approximate), Expires: 05/06/2025 Scheduled Procedures Name Priority Associated Diagnoses Date/Ti [...] Additional history exists CKD HGB USE SMARTSET 48068 03/06/202403/06, 03/06/2023, 12/19/2022, Additional history exists CKD PHOS USE SMARTSET 32863 03/21/2024 02/0 02/2023, 12/19/2022, 11/28/2022, Additional history [...] this encounter Medical Devices Implanted Type Area Interactive Marketing Strategist Device Identifier Shelf Expiration Date Model / Serial / Lot [place] Suture Biocomposite - Sn/A - [id number] Implanted:Qty: 2 on 12/13/2021 by Moris Jimenez, DO at OR [facility] Left: Leg Lower [employer] 07/18/2024 AR-[id number] / N/A / [id number] Vitoss Bbtrauma Foam Pack - [id number] - [id number] Implanted:Qty: 1 on 12/13/2021 by Moris Jimenez, at OR [facility] Left: Leg Lower MICHA : TRAUMA 01/15/2022 / [id number] / [id number] documented as of this encounter Visit Diagnoses Diagnosis S/P mitral valve replacement- Primary Heart valve replaced by other means Acute on chronic right-sided heart failure (HCC) documented in this encounter Advance Directives Latest Code Status on File Code Status Date Activated Date Inactivated Comments Full Code 12/12/2021 7:18 PM 12/20/2021 6:08 PM This order reflects the patients wishes and were consensually agreed upon. Question Answer Comments Discussion of Advance Directives occurred with: Patient Care Teams Crystal Syrup Maker Relationship Specialty Start Date End Date Shara Ray MD [address] [place] [address] [place] [address] PCP - General Family Medicine 03/08/23 documented as of this encounter
--- OUTSIDE RECORDS SUMMARY | 2023-07-10 17:55 | External Medical Summary | Summary of Care ---
Author Name Unknown Organization [facility] Address [address] [facility] [place] [address] Phone [phone] Care Team Providers Care College Football Coach Name Role Phone Shara Ray MD Primary Care Provide r Reason for Visit * Reason Comments Dosage Adjustment Via Phone (anticoag Cl inic) Encounter Details Date Type Department Care Team (Latest Contact Info) Description 04/03/2023 6:00 PM EST Anticoagulation Pharmacy Call Center [phone] [place] [address] [facility] 58 60 [facility] [place] [address] [facility] current use of anticoagulant therapy*; History of [...] as of this encounter (statuses as of 04/03/2023) Medications Medication Sig Dispensed Refills Start Date [...] MORNING 100 Tablet 1 07/21/2022 4 Active Citalopram Hydrobromide 10 MG Oral Tablet (CeleXA)Indications: BOBBY (generalized anxiety disorder) TAKE ONE TABLET BY MOUTH EVERY MORNING 100 Tablet 1 06/14/2022 4 Active Metoclopramide HCl 10 MG Oral Tablet (Reglan)Indications: Nausea TAKE ONE TABLET BY MOUTH EVERY MORNING 30 MINUTES BEFORE A MEAL 90 Tablet 1 06/04/2022 4 Active Levothyroxine Sodium 100 MCG Oral Tablet (Levoxyl)Indications :Hypothyroidism, postablative TAKE ONE TABLET YB MOUTH DAILY FIRST THING IN THE MORNING AT LEAST 30 MINUTES PRIOR TO BREAKFAST OR OTHER MEDS 100 Tablet 1 05/02/2022 4 Active rOPINIRole HCl 2 MG Oral [...] 100 Tablet 0 02/07/2023 4 Active Nystatin [id number] UNIT/ML Mouth/Throat SuspensionIndication s:Thrush Swish and swallow [...] tablets by mouth daily as directed by [facility] 180 Tablet 3 03/06/2023 Active Nitroglycerin [...] the morning. 90 Tablet 3 03/28/2023 Active documented as of this encounter (statuses as of 04/03/2023) Active Problems Problem Noted Date Diagnosed Date [...] COPD GOLD Classification Last Assessment & Plan: Current Status : "Stable" for patient / At or near baseline Degree of Condition Awareness: Demonstrates very good awareness of condition, disease course, and prognosis "RED FLAG" COPD symptoms: Increased dyspnea on exertion ("I can't walk to the kitchen or up the stairs without coughing and wheezing", "My chest feels tight any time I move") Increased shortness of breath at rest ("I struggle to breathe even when watching TV", "I have to wear or turn up my oxygen just when I'm sitting on the couch") Cough ("I get a different kind of cough than what I' have every day") Medication Regimen All Classes - KORTNEY Class D, Asthma/COPD Overlap - Inhaled Glucocorticoid-LABA Combination Inhaler Self-Management plan Prednisone tapering dose Rx Oral Antibiotic Rx (see medication list) High frequency nebulizer treatments every 4-6 hours around the clock Exacerbation plan Solumedrol 40mg IM/IV CBC Chest Xray Followed by plastic parts fabricator trimmer - Dr[facility] Rashel Sales [facility] [...] Overview: Since 03/2021 Generalized anxiety disorder 06/26/2021 Overview: citalopram started Last Assessment & Plan: Doing well on celexa Hypertensive heart and kidne y disease with chronic diastolic congestive heart failure and stage 3b chronic kidney disease 04/26/2021 Last Assessment & Plan: Current Status : "Stable" for patient / At or near baseline Degree of Condition Awareness : Demonstrates very good awareness of condition, disease course, and prognosis "RED FLAG" HF Symptoms: Leg Swelling (Examples: "I can't wear certain socks or shoes", "My pants feel tight") Increased dyspnea on exertion (Example: "I can't walk to the kitchen or up the stairs") Increased shortness of breath at rest (Example: "I struggle to breathe even when watching TV") Current Heart Failure Classifications: With ordinary activity such as doing housework, yard work or shopping ([employer] CLASS II) Diagnostic Review: Recent Labs Units 12/03/22 1412 11/28/22 0957 10/24/22 1108 08/22/22 1355 07/19/22 1441 LEFT VENTRICULAR EJECTION FRACTION % -- -- -- -- 60 BNP (NT-PRO-BNP) - [facility] pg/mL 665* -- -- -- -- ESTIMATED GLOMERULAR FILTRATION RATE - [facility] mL/min -- 37* -- -- -- HGB - [facility] g/dL -- -- 12.4 < > -- < > = values in this interval not displayed. Medication Regimen: Beta Galina Therapy: Metoprolol Tartrate VINCENT Inhibitor/ARB Therapy: No VINCENT/ARB/ARNI secondary to: allergy Diuretic therapy: Torsemide Self - Management Plan Other/Additional Comments: Euvolemic today Exacerbation Plan Anticipated IV Lasix dose: 200 mg BMP Pro-BNP Chest X-Ray Recurrent falls 04/26/2021 Last Assessment & Plan: [...] & Plan: Chronic AC coumadin Atherosclerosis of burns [place] co ronary artery of burns [place] heart without angina pectoris documented as of this encounter (statuses as of 04/03/2023) Resolved Problems Problem Noted Date Diagnosed Date [...] Overview: Per CKD protocol #1 [employer] Other*[id number] 06/02/2010 04/18/2011 Overview: PROJECT: #[id number], SPONSOR: Aileen, PI: Adolfo De Jesus MD [...] can be closed. CONTACT: Roberto Carlos Huertas, Concaving Machine Operator Type 2 diabetes mellitus wit [...] as of this encounter (statuses as of 04/03/2023) Immunizations Name Administration Dates Next Due COVID-19 mRNA, LNP-s, No Pre serve, 2-Dose Series (Moderna) 04/19/2020,03/22/2020 COVID-19, MRNA-LNP, 23-24, P F, 30 MCG/0.3 mL, 12 YRS AND ABOVE, IM ([facility]) 12/03/2022 COVID-19, mRNA, LNP-s, PF, B ooster, [...] Progress Notes * Kirby Gates RPh - 04/03/2023 4:35 PM EST Noted, thanks. * Gabriela Willson PHARM Tech - 04/03/2023 4:04 PM EST Contacts Type Contact Phone/Fax 04/03/2023 03:54 PM EST Phone (Outgoing) Abdi Bowling (Self) [phone] (M) Subjective Patient Findings Positives: Change in medications (Started on Losartan yesterday) Negatives: Signs/symptoms of thrombosis, Signs/symptoms of bleeding, Change in health, Change in alcohol use, Change in activity, Upcoming invasive procedure, Missed doses, Extra doses, Change in diet/appetite, Bruising Advised patient to contact Anticoagulation Clinic if any unusual bruising or bleeding, recent illness, changes in medication, or questions/concerns. PT/INR results, Coumadin dose instructions, and next PT/INR date communicated as noted by Pharmacist: Yes GORGE LAMAS 04/03/2023, 4:04 PM * Kirby Gates RPh - 04/03/2023 3:49 PM EST Coumadin Clinic (region specific) Objective Current Warfarin Dose As of 04/03/2023 Warfarin maintenance plan: 5 mg (2.5 mg x 2) every Tue, Wed, Fri; 3.75 mg (2.5 mg x 1.5) all other days INR Result As of 04/03/2023 INR goal: 3.0-3.5 INR used for dosin.1 (04/03/2023) Assessment & Plan Warfarin Plan As of 04/03/2023 Full warfarin instructions: Decrease to 5 mg every Tue, Fri; 3.75 mg all other days Next INR check: 04/10/2023 I sent myG Repeat PT/INR in 1 week(s) Weekly dose: decreased Additional Dosing Information: Description L WedFri, prefers Wed ([facility], [facility], or [facility]) Please also send myG Tech to contact patient with dose instructions as noted. Kirby Gates RPh 04/03/2023, 3:49 PM documented in this encounter Plan of Treatment Upcoming Encounters Date Type Department Care Team (Late st Contact Info) Description 04/08/2023 10:30 AM EST Imaging Radiology [facility] [address] [facility] [place] [address] 04/10/2023 6:00 AM EST Anticoagulation Pharmacy Call Center WB [phone] [facility] [place] [address] [facility] 58 [address] [facility] [place] [address] 04/16/2023 9:30 AM EST Cardiac Studies Cardiology [address] [place] [address] [facility] [address] [facility] [place] [address] 04/24/2023 10:00 AM EST Home Visit [facility] [address] [facility] [place] [address] Valentina Laws, TANISHA [address] [facility] [place] [address] 06/04/2023 1:30 PM EDT Office Visit Allergy/Immunology [facility] [address] [place] [address] Macario Pathak MD [address] [place] [address] 06/10/2023 12:20 PM EDT Office Visit Family Medicine [address] [place] [phone] Shara Ray MD [address] [place] [address] [place] [address] 06/21/2023 8:00 AM EDT Laboratory Lab Mobile Phlebotomy [facility] [address] [place] [address] [facility], [facility] Home Draw [address] [place] [address] 06/24/2023 11:00 AM EDT Office Visit Hematology/Oncology [facility] [place] [address] [place] [address] Bouchra Del Cid CRNP [address] [facility] [place] [address] 08/05/2023 1:00 PM EDT Nurse Only Ancillary [address] [place] [address] [place], Nurse [address] [place] [address] 09/20/2023 8:00 AM EDT Laboratory Lab Mobile Phlebotomy [facility] [address] [place] [address] [facility], [facility] Home Draw [address] [place] [address] 09/24/2023 11:30 AM EDT Office Visit Nephrology, [facility] [address] [facility] [place] [address] ZeKary bliss PA-C 200 [facility] [place] [address] 12/20/2023 8:00 AM EDT Laboratory Lab [facility] Phlebotomy [facility] [address] [place] [address] [facility], [facility] Home Draw [address] [place] [address] 03/27/2024 8:00 AM EST Laboratory Lab Mobile Phlebotomy [facility] [address] [place], [place] [id number] [facility], [facility] Home Draw [address] [place], [place] [id number] Scheduled Procedures Name Priority Associated Diagnoses Date/Ti [...] Additional history exists CKD HGB USE SMARTSET 17720 03/06/202403/06, 03/06/2023, 12/19/2022, Additional history exists CKD PHOS USE SMARTSET 75875 03/21/2024 02/0 02/2023, 12/19/2022, 11/28/2022, Additional history [...] this encounter Medical Devices Implanted Type Area Grinder Chipper Device Identifier Shelf Expiration Date Model / Serial / Lot Vitoss Bbtrauma Foam Pack - [id number] - [id number] Implanted:Qty: 1 on 12/13/2021 by Moris Jimenez, at OR [facility] Left: Leg Lower MICHA : TRAUMA 01/15/2022 [id number] / [id number] / [id number] documented as of this encounter Visit Diagnoses Diagnosis [facility] current use of anticoagulant therapy- Primary History [...] Advance Directives occurred with: Patient Care Teams College Football Coach Relationship Specialty Start Date End Date Shara Ray MD [address] [place] [address] [place] [address] PCP - General Family Medicine 03/08/23 documented as of this encounter
--- OUTSIDE RECORDS SUMMARY | 2023-07-10 17:55 | External Medical Summary | Summary of Care ---
Author Name Unknown Organization [facility] Address [address] [facility] [place] [address] Phone [phone] Care Team Providers Care Shrimping Boat Captain Name Role Phone Shara Ray MD Primary Care Provide r Encounter Details Date Type Department Care Team (Late st Contact Info) Description 04/03/2023 11:00 AM EST Telemedicine [facility] [place], [facility] [address] [place] [address] Vincenzo Contreras PA-C [address] [place] [address] Muriel Lipscomb [address] [place] [address] Hypertensive heart and kidney disease with chronic diastolic congestive heart failure and stage 3b chronic kidney disease (HCC)*; COPD, group B, by GOLD 2017 classification (HCC); Major depressive disorder, recurrent, moderate (HCC); Other persistent atrial fibrillation (HCC); Generalized anxiety disorder; Atherosclerosis of [place] coronary artery without angina pectoris, unspecified whether [place] or transplanted heart; Hypothyroidism, postablative; Dyslipidemia, goal LDL below 100 Allergies Active Allergy Reactions Criticality Noted [...] 100 Tablet 1 3 07/21/19 24 Active Citalopram Hydrobromide 10 MG Oral Tablet (CeleXA)Indications :BOBBY (generalized anxiety disorder) TAKE ONE TABLET BY MOUTH EVERY MORNING 100 Tablet 1 3 06/14/19 24 Active Metoclopramide HCl 10 MG Oral Tablet (Reglan)Indications :Nausea TAKE ONE TABLET BY MOUTH EVERY MORNING 30 MINUTES BEFORE A MEAL 90 Tablet 1 3 06/04/19 24 Active Levothyroxine Sodium 100 MCG Oral Tablet (Levoxyl)Indication s:Hypothyroidism, postablative TAKE ONE TABLET YB MOUTH DAILY FIRST THING IN THE MORNING AT LEAST 30 MINUTES PRIOR TO BREAKFAST OR OTHER MEDS 100 Tablet 1 3 05/02/19 24 Active rOPINIRole HCl 2 MG Oral [...] as needed 50 mL 0 3 Active Torsemide 100 MG Oral Tablet (Demadex)Indication s:Varicose veins of both legs with edema Take 1 Tablet by mouth in the morning. 100 Tablet 1 3 Active Spironolactone 25 MG Oral Tablet [...] Tablet 0 3 02/07/20 24 Active Nystatin [id number] UNIT/ML Mouth/Throat SuspensionIndicatio ns:Thrush Swish and swallow [...] TO ER 75 Tablet 0 4 Active Morphine Sulfate ER 15 MG Oral Tablet Extended Release (MS Contin)Indications: Generalized osteoarthritis,Khoa eufemia of left lower leg Take 1 Tablet by mouth daily as needed for Pain, Severe. Only as needed for pain 30 Tablet 0 4 Active traMADol HCl 50 [...] or wheezing 1080 mL 2 4 Active Losartan Potassium 25 MG Oral Tablet (Cozaar)Indications :Hypertensive heart and kidney disease with chronic diastolic congestive heart failure and stage 3b chronic kidney disease (HCC) Take 1 Tablet by mouth in the morning. 90 Tablet 3 4 Active traMADol HCl 50 MG Oral Tablet (Ultram) Take 1 tablet by mouth every six hours as needed FOR SEVERE BREAKTHROUGH PAIN 120 Tablet 0 4 04/03/19 24 Discontinu ed(Externa l Source Cancellati on) Morphine Sulfate ER 15 MG Oral Tablet Extended Release (Ms Contin) Take 1 tablet by mouth twice a day as needed for pain 60 Tablet 0 4 04/03/19 24 Discontinu ed(Externa l Source Cancellati on) documented as of this encounter (statuses as of 04/03/2023) Active Problems Problem Noted Date Diagnosed Date Major depressive disorder, recurrent, moderate 0 04/03/2023 Last Assessment & Plan: Mood stable on current dose celexa Other persistent atrial fibrillation 04/03/2023 Last Assessment & Plan: Rate controlled Continue coumadin Atherosclerosis of [place] co ronary artery without angina pectoris [...] IM/IV Chest Xray Additional Comments: Followed by pen tester - Dr. Rashel Sales [facility] Closed nondisplaced fracture of left tibial tuberosity with routine healing 12/12/2021 Mild protein-calorie malnutrition 12/05/2021 Controlled substance agreement signed 12/05/2021 Hematoma of leg, left, subsequent encounter 09/2021 Overview: [facility] ER ulstrasound shows hematoma calf, [...] & Plan: Chronic AC coumadin Atherosclerosis of [place] co ronary artery of [place] heart without angina pectoris documented as [...] Overview: Per CKD protocol #1 [employer] Other*[id number] 06/02/2010 04/18/2011 Overview: PROJECT: #[id number], SPONSOR: Aileen, PI: Adolfo De Jesus MD [...] can be closed. CONTACT: Roberto Carlos Huertas, Reservations Sales Supervisor Type 2 diabetes mellitus wit h hemoglobin A1c goal of less than 7.0% 04/24/2010 08/29/2018 Overview: ICD-10 update of inactive term ACTIVE CASE MANAGEMENT Kassie Anthony, RN [phone] 05/10/19 10 12/05/2009 ADVANCE DIRECTIVE INFORMATION 05/09/2009 [...] MCG/0.3 mL, 12 YRS AND ABOVE, IM ([employer]) 12/03/2022 COVID-19, mRNA, LNP-s, PF, B ooster, [...] Sign Reading Time Taken Comments Blood Pressure 106/52 04/03/2023 11:57 AM EST Pulse 74 04/03/2023 11:57 AM EST Temperature 36.8 C (98.2 F) 04/03/2023 11:[address] Respiratory Rate 22 04/03/2023 11:57 AM EST Oxygen Saturation 99% 04/03/2023 11:57 AM EST Inhaled Oxygen Concentration - - [...] as of this encounter Progress Notes * Muriel Lipscomb [facility] Health Shuttle Fixer - 04/03/2023 12:00 PM EST Telemedicine visit: No Community [facility] Shuttle Fixer (LINA) documentation: [facility] home visit for return telemed with [facility] provider. Patient reports worsening edema and SOB. VS as follows: BP 106/52 (BP Site: Left Arm, BP Position: Sitting, BP Cuff Size: Regular) | Pulse 74 | Temp 36.8 C (98.2 F) | Resp 22 | SpO2 99% See assessments/surveys completed this date. Electronically signed by Muriel Lipscomb [facility] Health Shuttle Fixer at 04/03/2023 10:58 PM EST * Vincenzo Contreras PA-C - 04/03/2023 11:30 AM EST Images from the original note were not included. [facility] Home Problem Oriented Charting Provider Visit Date: 04/03/2023 Time: 11:30 AM [facility] Sub-Program: No data was found Assessment and Plan #1 Hypertensive heart and kidney disease with chronic diastolic congestive heart failure and stage 3b chronic kidney disease (HCC) (Primary) Assessment & Plan: "RED FLAG" HF Symptoms: [...] 3 days Continue to monitor weights daily #2 COPD, group B, by GOLD 2017 classification ([facility]) Overview: Per COPD GOLD Classification Assessment & Plan: "RED FLAG" COPD symptoms: [...] IM/IV Chest Xray Additional Comments: Followed by pen tester - Dr. Rashel Sales [facility] #3 Major depressive disorder, recurrent, moderate ([facility]) Assessment & Plan: Mood stable on current dose celexa #4 Other persistent atrial fibrillation ([facility]) Assessment & Plan: Rate controlled Continue coumadin #5 Generalized anxiety disorder Assessment & Plan: Stable on celexa #6 Atherosclerosis of [place] coronary artery without angina pectoris, unspecified whether [place] ortransplanted heart #7 Hypothyroidism, postablative #8 Dyslipidemia, goal LDL below 100 Additional Medical Decision Making: Per patient, caregiver (Moris) lives with her Will have patient increase torsemide to 150mg daily x 3 days Continue daily weights Nocturnal pulse ox recently returned to [facility], suspect she will need oxygen at per patient report. Results not available for review Scheduled appointments in the next 60 days: Future Appointments-next 60 days Date/Time Provider Specialty Dept Phone 04/04/2023 6:00 AM [facility] [phone] 04/08/2023 10:30 AM (Arrive by 10:15 AM) [address] [place] [address] Radiology [phone] 04/16/2023 9:30 AM (Arrive by 9:15 AM) [facility] Cardiology [phone] 04/24/2023 10:00 AM Valentina Laws RN [facility] [phone] 06/04/2023 1:30 PM (Arrive by 1:15 PM) Macario Pathak MD Allergy and Immunology [phone] 06/10/2023 12:20 PM (Arrive by 12:05 PM) Shara Ray MD Family Medicine [phone] 06/21/2023 8:00 AM [facility] Draw Laboratory Processing [phone] 06/24/2023 11:00 AM (Arrive by 10:45 AM) Bouchra Del Cid CRNP Hematology Oncology [phone] 08/05/2023 1:00 PM Nurse [facility] Ancillary [phone] 09/20/2023 8:00 AM [facility] Laboratory Processing [phone] 09/24/2023 11:30 AM (Arrive by 11:15 AM) Kary Pena PA-C Nephrology [phone] 12/20/2023 8:00 AM [facility] Home Draw Laboratory Processing [phone] 03/27/2024 8:00 AM [facility] Home Draw Laboratory Processing [phone] A total of 25 minutes was spent face to face (via video-based telemedicine if designated as a telemedicine visit) Subjective Subjective Is this a Telemedicine Visit? Yes, Patient location: HOME. I was in a hospital or clinic location. After connecting through televideo, patient was verified with two unique identifiers. Patient (or authorized legal patient portal representative)was then informed that this was a Telemedicine visit and being conducted confidentially over securelines. Methods to assure confidentiality were taken. Patient acknowledged consent and understandingof privacy and security of the Telemedicine visit. The patient agreed to participate. Reason For [facility] Visit: Follow-Up Current Concerns: Abdi Bowling is a 67 year old female [facility]. Today's concerns are: Increased leg swelling Ongoing SOB, increased BENAVIDES Seen recently by pulmonary [facility] (Dr Sales) Appears he recommended increasing diuretics, but not dose adjustments made yet Nocturnal oximetry ordered and just completed, patient reports pulse ox decreased to 81% overnight She has some chronic cough, but no worse than usual Denies fever/chills Chronic pain in legs, no significant increased warmth or redness Also has chronic neck/back pain Using tramadol prn for mild/mod pain and morphine for severe pain Manages her own medications Has caregiver (Moris) that lives with her to assist in the home She is ambulating with rollator walker at all times Denies recent falls Appetite fair Monitors weight daily Reports weight gradually trending up over past few months PMH includes Rheumatic heart disease, s/p mitral valve, Afib - warfarin,Ckd,Dm2, Hfpef Additional Objective Objective Vitals: 04/03/23 1157 Temp: 36.8 C (98.2 F) Pulse: 74 Resp: 22 SpO2: 99% BP: 106/52 Last Weights: Wt Readings from Last 3 Encounters: 03/19/23 67.3 kg (148 lb 6.4 oz) 02/27/23 66 kg (145 lb 6.4 oz) 12/21/22 63.2 kg (139 lb 4.8 oz) Last BPs: BP Readings from Last 4 Encounters: 04/03/23 106/52 03/19/23 130/71 03/06/23 122/58 02/27/23 136/74 General: alert and no distress Neuro: alert & oriented x 3 with fluent speech Heart: irregularly irregular and + murmur Lungs: decreased breath sounds, few faint rales in bases Ext: Lower extremity edema Lab Review: I have reviewed the following results: Imaging results in the last 6 months XR KNEE 3 VIEWS Result Date: 12/28/2022 IMPRESSION Bilateral total knee arthroplasties without periprosthetic fracture. VASC DUPLEX VENOUS LE BILAT Result Date: 12/05/2022 IMPRESSION No evidence of deep venous thrombosis. BMP results Recent Labs Units 04/03/23 1130 03/21/23 0942 03/13/23 1145 SODIUM - [facility] mmol/L 136 137 138 POTASSIUM - [facility] mmol/L 4.3 3.7 3.8 CHLORIDE - [facility] mmol/L 96* 97* 100 CO2 - [facility] mmol/L 29 29 28 CREATININE - [facility] mg/dL 2.1* 1.6* 1.7* BUN - [facility] mg/dL 39* 28* 26* Lipid panel results Recent Labs Units 02/13/23 1237 CHOLESTEROL - [facility] mg/dL 125 LDL CHOLESTEROL (CALCULATED) - [facility] mg/dL 56 HDL CHOLESTEROL - [facility] mg/dL 51 TRIGLYCERIDES - [facility] mg/dL 92 CBC results Recent Labs Units 03/06/23 1128 12/19/22 1356 10/24/22 1108 WBC AUTO - [facility] K/uL 7.05 6.70 6.39 HGB - [facility] g/dL 12.4 12.6 12.4 HCT - [facility] % 39.1 40.6 41.5 PLATELET AUTO - [facility] K/uL 123* 144 140 HbA1c results Recent Labs Units 11/28/22 0957 05/30/22 1425 12/13/21 0455 HEMOGLOBIN A1C - [facility] % 7.0* 6.6* 6.1* Vincenzo Contreras PA-C 11:30 AM *Communication sent to PCP (via [facility] if non[facility]), [facility] Health Care Team members,relevant Specialty Care Physicians* documented in this encounter Miscellaneous Notes * Assessment & Plan Note - Vincenzo Contreras PA-C - 04/03/2023 10:57 PM EST Associated Problem(s): Generalized anxiety disorder Stable on celexa * Assessment & Plan Note - Vincenzo Contreras PA-C - 04/03/2023 10:44 PM EST Associated Problem(s): Major depressive disorder, recurrent, moderate (HCC) Mood stable on current dose celexa * Assessment & Plan Note - Vincenzo Contreras PA-C - 04/03/2023 10:44 PM EST Associated Problem(s): Other persistent atrial fibrillation (HCC) Rate controlled Continue coumadin * Assessment & Plan Note - Vincenzo Contreras PA-C - 04/03/2023 10:38 PM EST Associated Problem(s): Hypertensive heart and kidney disease with chronic diastolic congestive heart failure and stage 3b chronic kidney disease (HCC) "RED FLAG" HF Symptoms: Leg Swelling (Examples: [...] 3 days Continue to monitor weights daily * Assessment & Plan Note - Vincenzo Contreras PA-C - 04/03/2023 10:35 PM EST Associated Problem(s): COPD, group B, by GOLD 2017 classification ([facility]) "RED FLAG" COPD symptoms: Increased dyspnea on [...] IM/IV Chest Xray Additional Comments: Followed by pen tester - Dr. Rashel Sales [facility] documented in this encounter Plan of Treatment Upcoming Encounters Date Type Department Care Team (Late st Contact Info) Description 04/08/2023 10:30 AM EST Imaging Radiology [facility] [address] [facility] [place] [address] 04/10/2023 6:00 AM EST Anticoagulation Pharmacy Call Center WB [address] [facility] [place] [address] [facility] [address] [facility] [place] [address] 04/16/2023 9:30 AM EST Cardiac Studies Cardiology [address] [place] [address] [facility] [address] [facility] [place] [address] 04/24/2023 10:00 AM EST Home Visit [facility] [place], [facility] [address] [facility] [place] [address] Valentina Laws, TANISHA [address] [place] [address] 06/04/2023 1:30 PM EDT Office Visit Allergy/Immunology [facility] [address] [place] [address] Macario Pathak MD [address] [place] [address] 06/10/2023 12:20 PM EDT Office Visit Family Medicine [address] [place] [phone] Shara Ray MD [address] [place] [address] [place] [address] 06/21/2023 8:00 AM EDT Laboratory Lab Mobile Phlebotomy [facility] [place] [id number] [facility] Draw [address] [place] [address] 06/24/2023 11:00 AM EDT Office Visit Hematology/Oncology [facility] [address] [place] [address] Bouchra Del Cid, LINE MECHANIC [address] [facility] [place] [address] 08/05/2023 1:00 PM EDT Nurse Only Ancillary [address] [place] [address] [place], Nurse [address] [place] [address] 09/20/2023 8:00 AM EDT Laboratory Lab Mobile Phlebotomy [facility] [address] [place] [address] [facility] Mobile Home Draw [address] [place] [address] 09/24/2023 11:30 AM EDT Office Visit Nephrology, [facility] [address] [facility] [place], [place] [address] ZeKary bliss PA-C [address] [facility] [place] [address] 12/20/2023 8:00 AM EDT Laboratory Lab Mobile Phlebotomy [facility] [address] [place] [address] [facility] Home Draw [address] [place] [address] 03/27/2024 8:00 AM EST Laboratory Lab Mobile Phlebotomy [facility] [address] [place] [address] [facility] Home Draw [address] [place] [address] Scheduled Procedures Name Priority Associated Diagnoses Date/Ti [...] Additional history exists CKD HGB USE SMARTSET 26402 03/06/202403/06, 03/06/2023, 12/19/2022, Additional history exists CKD PHOS USE SMARTSET 73838 03/21/2024 02/0 02/2023, 12/19/2022, 11/28/2022, Additional history [...] this encounter Medical Devices Implanted Type Area Brick Pointer Device Identifier Shelf Expiration Date Model / Serial / Lot Vitoss Bbtrauma Foam Pack - [id number] - [id number] Implanted:Qty: 1 on 12/13/2021 by Moris Jimenez, DO at OR [facility] Left: Leg Lower MICHA : TRAUMA 01/15/2022 [id number] / [id number] / [id number] documented as of this encounter Visit Diagnoses Diagnosis Hypertensive heart and kidney disease with chronic diastolic congestive heart failure and stage 3b chronic kidney disease (HCC)- Primary COPD, group B, by GOLD 2017 classification (HCC) Major depressive disorder, recurrent, moderate (HCC) Major depressive disorder, recurrent episode, moderate Other persistent atrial fibrillation (HCC) Generalized anxiety disorder Atherosclerosis of [place] coronary artery without angina pectoris, unspecified whether [place] or transplanted heart Hypothyroidism, postablative Other postablative hypothyroidism Dyslipidemia, goal LDL below 100 Other and unspecified hyperlipidemia documented in this encounter Advance Directives Latest Code Status on File Code Status Date Activated Date Inactivated Comments Full Code 12/12/2021 7:18 PM 12/20/2021 6:08 PM This order reflects the patients wishes and were consensually agreed upon. Question Answer Comments Discussion of Advance Directives occurred with: Patient Care Teams Shrimping Boat Captain Relationship Specialty Start Date End Date Shara Ray MD [address] [place] [address] [place] [address] PCP - General Family Medicine 03/08/23 documented as of this encounter
--- OUTSIDE RECORDS SUMMARY | 2023-07-10 17:55 | External Medical Summary | Summary of Care ---
Author Name Unknown Organization [facility] Address [address] [facility] [address] Phone [phone] Care Team Providers Care Reducing Salon Attendant Name Role Phone Shara Gorman MD Primary Care Provide r Reason for Visit * Reason Comments Medication Refill Encounter Details Date Type Department Care Team (Late st Contact Info) Description 04/04/2023 Refill Family Medicine [address] [place] [phone] John Blanco MD [address] [place], [place] [address] [id number] BOBBY (generalized anxiety disorder); Hypothyroidism, postablative Allergies [...] as of this encounter (statuses as of 04/04/2023) Medications Medication Sig Dispensed Refills Start Date [...] Tablet 0 02/07/2023 02/07/20 24 Active Nystatin 382466 UNIT/ML Mouth/Throat SuspensionIndicatio ns:Thrush Swish and swallow [...] tablets by mouth daily as directed by [facility] 180 Tablet 3 03/06/2023 Active [...] 100 Tablet 1 04/04/2023 04/03/19 25 Active Citalopram Hydrobromide 10 MG Oral Tablet [...] as of this encounter (statuses as of 04/04/2023) Active Problems Problem Noted Date Diagnosed Date Major depressive disorder, recurrent, moderate 0 04/03/2023 Last Assessment & Plan: Mood stable on current dose celexa Other persistent atrial fibrillation 04/03/2023 Last Assessment & Plan: Rate controlled Continue coumadin Atherosclerosis of [place] co ronary artery without angina pectoris 04/03/2023 [...] IM/IV Chest Xray Additional Comments: Followed by [facility] - Dr. Rashel Sales [facility] Closed [...] in the Comments) Remote Patient Monitoring Vendor: [facility] Device(s): Connected Scale Self - [...] & Plan: Symptoms well controlled on omeprazole bed bug exterminator current use of anticoagulant therapy 0 05/10/2004 Overview: ICD-10 update of inactive term Rheumatic heart disease 03/05/2002 Old myocardial infarct 01/02/2001 Last Assessment & Plan: Continue Crestor 20 mg daily S/P mitral valve replacement Last Assessment & Plan: Chronic AC coumadin Atherosclerosis of [place] co ronary artery of [place] heart without angina pectoris documented as of this encounter (statuses as of 04/04/2023) Resolved Problems Problem Noted Date Diagnosed Date [...] Overview: Per CKD protocol #1 [employer] Other*[id number] 06/02/2010 04/18/2011 Overview: PROJECT: #[id number], SPONSOR: [employer], PI: Adolfo De Jesus MD [...] can be closed. CONTACT: Roberto Carlos Huertas, Refractory Worker Type 2 diabetes mellitus wit h hemoglobin A1c goal of less than 7.0% 04/24/2010 08/29/2018 Overview: ICD-10 update of inactive term ACTIVE CASE MANAGEMENT Kassie Anthony RN [id number] 05/10/19 10 12/05/2009 ADVANCE DIRECTIVE INFORMATION 05/09/2009 [...] as of this encounter (statuses as of 04/04/2023) Immunizations Name Administration Dates Next Due COVID-19 [...] Notes * Telephone Encounter - Shy Kelley, [facility] - 04/04/2023 4:32 PM ESTSigned Prescriptions: Disp Refills Citalopram Hydrobromide 10 MG Oral Tablet *100 Ta*1 Sig: TAKE ONE TABLET BY MOUTH EVERY MORNINGAuthorizing Provider: Marlene GORMAN User: SHY KELLEY Levothyroxine Sodium 100 MCG Oral Tablet (*100 Ta*1 Sig: TAKE ONE TABLET YB MOUTH DAILY FIRST THING IN THE MORNING AT LEAST 30 MINUTES PRIOR TO BREAKFAST OR OTHER MEDSAuthorizin g Provider: Marlene GORMAN User: SHY KELLEY * [...] 30 MINUTES PRIOR TO BREAKFAST OR OTHER MEDS- documented in this encounter Plan of Treatment Upcoming Encounters Date Type Department Care Team (Late st Contact Info) Description 04/08/2023 10:30 AM EST Imaging Radiology [address] [address] 04/10/2023 6:00 AM EST Anticoagulation Pharmacy Call Center [address] [place] [address] [facility], [facility] 58 [address] [place] [address] 04/10/2023 10:00 AM EST Laboratory Lab Mobile Phlebotomy [facility] [address] [place] [address] [facility] Mobile Home Draw [address] [place] [address] 04/11/2023 10:00 AM EST Office Visit Cardiology, [facility] 132 [facility] [place] [address] Hadley Molina MD [facility] [place] [address] 04/16/2023 9:30 AM EST Cardiac Studies Cardiology [address] [place] [address] [facility] 132 [facility] [place] [address] 04/24/2023 10:00 AM EST [facility] [place] [address] Valentina Laws RN 132 [place] [address] 06/04/2023 1:30 PM EDT Office Visit Allergy/Immunology [facility] [address] [place] [address] Macario Pathak MD [address] [place] [address] 06/10/2023 12:20 PM EDT Office Visit Family Medicine [address] [place] [phone] Shara Gorman MD [address] [place] [address] [place] [address] 06/21/2023 8:00 AM EDT Laboratory Lab Mobile Phlebotomy [facility] [address] [place] [address] [facility] Mobile Home Draw [address] [place] [address] 06/24/2023 11:00 AM EDT Office Visit Hematology/Oncology [facility] 200 [facility] [place] [address] Bouchra Del Cid CRNP [address] [place] [address] 08/05/2023 1:00 PM EDT Nurse Only Ancillary [address] [place] [address] [place], Nurse [address] [place] [address] 09/20/2023 8:00 AM EDT Laboratory Lab Mobile Phlebotomy [facility] [address] [place] [address] [facility] Draw [address] [place] [address] 09/24/2023 11:30 AM EDT Office Visit Nephrology, [facility] 200 [facility] [place] [address] ZemaitisKary PA-C 200 [facility] [place] [address] 12/20/2023 8:00 AM EDT Laboratory Lab Mobile Phlebotomy [facility] [address] [place] [address] [facility] Draw [address] [place] [address] 03/27/2024 8:00 AM EST Laboratory Lab Mobile Phlebotomy [facility] [address] [place] [address] [facility] Mobile Home Draw [address] [place], [place] [id number] Scheduled Orders Name Type Priority Associated Diagnoses [...] Additional history exists CKD HGB USE SMARTSET 27796 03/06/202403/06, 03/06/2023, 12/19/2022, Additional history exists CKD PHOS USE SMARTSET 29847 03/21/2024 02/0 02/2023, 12/19/2022, 11/28/2022, Additional history [...] this encounter Medical Devices Implanted Type Area Rough And Trueing Machine Operator Device Identifier Shelf Expiration Date Model / Serial / Lot Vitoss Bbtrauma Foam Pack - [id number] - [id number] Implanted:Qty: 1 on 12/13/2021 by Moris Jimenez, DO at OR [facility] Left: Leg Lower MICHA : TRAUMA 01/15/2022 [id number] / [id number] / [id number] documented as of this encounter Visit Diagnoses [...] Advance Directives occurred with: Patient Care Teams Reducing Salon Attendant Relationship Specialty Start Date End Date Shara Gorman MD [address] [place] [address] [place] [phone] PCP - General Family Medicine 03/08/23 documented as of this encounter
--- OUTSIDE RECORDS SUMMARY | 2023-07-10 17:55 | External Medical Summary | Summary of Care ---
Author Name Unknown Organization [facility] Address [address] [facility] [address] Phone [phone] Care Team Providers Care Kitchen Steward/Stewardess Name Role Phone John Blanco MD Primary Care Provider [phone] Reason for Visit * Reason Comments IV Therapy Venofer. Encounter Details Date Type Department Care Team (Latest Contact Info) Description 02/05/2023 2:00 PM EST Hem/Onc Treatment Hematology/Oncology Treatment, [place] [address] [place] [address] Lacy, Chair 9 Hem Onc [facility] [address] [place] [address] Iron deficiency anemia, unspecified iron deficiency anemia [...] as of this encounter (statuses as of 04/05/2023) Medications Medication Sig Dispensed Refills Start Date [...] in the evening for Cough. 30 Capsule 07/04/19 22 Active D3-1000 25 MCG (1000 UT) Oral Capsule (Cholecalciferol) Take 1 Capsule by mouth in the morning. 0 Active Magnesium Glycinate 665 MG Oral CapsuleIndication s:Restless legs syndrome One daily 100 Capsule 01/24/20 22 Active valACYclovir HCl 1 GM Oral Tablet (Valtrex)Indicati ons:Cold sore Take 2 Tablets by mouth in the morning and 2 Tablets before bedtime. for cold sores. 4 Tablet 05/31/19 23 Active Omeprazole 20 MG Oral Capsule Delayed Release (PriLOSEC)Indicat ions:Encounter for long-term (current) use of medications,Gastr oesophageal reflux disease with esophagitis Take 1 Capsule by mouth in the morning. 100 Capsule 08/18/19 23 Active Estrogens Conjugated 0.625 MG/GM [...] A MEAL 90 Tablet 1 06/05/19 23 Active rOPINIRole HCl 2 MG Oral Tablet [...] BEFORE BEDTIME. 420 mL 1 12/19/19 Active Metoprolol Tartrate 25 MG Oral Tablet (Lopressor) TAKE ONE TABLET BY MOUTH TWICE A DAY IN THE MORNING AND BEFORE BEDTIME 200 Tablet 1 02/06/20 23 Active Sennosides 17.2 MG TABS Take by [...] bedtime. 1080 mL 1 08/08/19 22 024 Discontinued(Tn dication List Clean Up) Warfarin Sodium 5 [...] Tablet 1 06/15/19 23 024 Discontinued(Re fill) Levothyroxine Sodium 100 MCG [...] before bedtime. 12 g 3 09/06/19 024 Discontinued(Me dication List Clean Up) Azelastine HCl 0.1 [...] 0 01/10/20 23 023 Discontinued(Re fill) Nystatin 851772 UNIT/ML Mouth/Throat SuspensionIndicat ions:Thrush Swish and swallow 5 mL in the morning and 5 mL at noon and 5 mL in the evening and 5 mL before bedtime. For thrush.. 240 mL 1 01/16/20 23 023 Discontinued(Re fill) documented as of this encounter (statuses as of 04/05/2023) Active Problems Problem Noted Date Diagnosed Date [...] IM/IV Chest Xray Additional Comments: Followed by customer support manager - Dr. Rashel Sales [facility] Closed nondisplaced fracture of left tibial tuberosity with routine healing 12/12/2021 Mild protein-calorie malnutrition 12/05/2021 Controlled substance agreement signed 12/05/2021 Hematoma of leg, left, subsequent encounter 09/2021 Overview: [facility] ER ulstrasound shows hematoma [...] as of this encounter (statuses as of 04/05/2023) Resolved Problems Problem Noted Date Diagnosed Date [...] Overview: Per CKD protocol #1 ORBIT-[employer] Other*[id number] 06/02/2010 04/18/2011 Overview: PROJECT: #[id number], SPONSOR: [employer], PI: Adolfo De Jesus MD [...] can be closed. CONTACT: Roberto Carlos Huertas, Attendant Lodging Facilities Type 2 diabetes mellitus wit h hemoglobin A1c goal of less than 7.0% 04/24/2010 08/29/2018 Overview: ICD-10 update of inactive term ACTIVE CASE MANAGEMENT Kassie Anthony, TANISHA 342 [id number] 05/10/19 10 12/05/2009 ADVANCE DIRECTIVE INFORMATION 05/09/2009 [...] as of this encounter (statuses as of 04/05/2023) Immunizations Name Administration Dates Next Due COVID-19 [...] Sign Reading Time Taken Comments Blood Pressure 125/71 02/05/2023 1:50 PM EST Pulse 85 02/05/2023 1:50 PM EST Temperature 37.5 C (99.5 F) 02/05/2023 1:50 PM ES T Respiratory Rate 18 02/05/2023 1:50 PM EST Oxygen Saturation 94% 02/05/2023 1:50 PM EST Inhaled Oxygen Concentration - - [...] as of this encounter Nursing Notes * Millicent Morgan RN - 02/05/2023 3:54 PM EST Goals: Patient will remain free from injury. Possible barriers to meeting goals: Fall risk d/t ambulation with IV pole. Stability of the patient: Moderately stable - low risk of patient condition declining or worsening Summary regarding today's goals: Met: Patient remained free of injury. Patient tolerated procedure well. Discharged in stable condition. * Millicent Morgan RN - 02/05/2023 2:23 PM EST Chair 12. Patient arrived for venofer infusion with no complaints. Safety and Risk for Injury Patient will remain free from injury. Ensure appropriate safety devices are available. Provide and maintain safe environment. documented in this encounter Plan of Treatment Upcoming Encounters Date Type Department Care Team (Late st Contact Info) Description 04/08/2023 10:30 AM EST Imaging Radiology [facility] 132 [employer] [place] [address] 04/10/2023 6:00 AM EST Anticoagulation Pharmacy Call Center [address] [place] [address] [facility] [address] [place] [address] 04/10/2023 10:00 AM EST Laboratory Lab Mobile Phlebotomy [facility] [address] [place] [address] [facility] Mobile Home Draw [address] [place] [address] 04/11/2023 10:00 AM EST Office Visit Cardiology, [facility] 132 [facility] [place] [address] Hadley Molina MD 132 [facility] [place] [address] 04/16/2023 9:30 AM EST Cardiac Studies Cardiology [address] [place] [address] Markus Ashraf [facility] [place] [address] 04/24/2023 10:00 AM EST [facility], [facility] [address] [place] [address] Valentina Laws, TANISHA [address] [place] [address] 06/04/2023 1:30 PM EDT Office Visit Allergy/Immunology [facility] [place] [address] [place] [address] Macario Pathak MD 200 [facility] [place] [address] 06/10/2023 12:20 PM EDT Office Visit Family Medicine [address] [place] [phone] Shara Ray MD [address] [place] [address] [place] [address] 06/21/2023 8:00 AM EDT Laboratory Lab Mobile Phlebotomy [facility] [address] [place] [address] [facility] Mobile Home Draw [address] [place] [address] 06/24/2023 11:00 AM EDT Office Visit Hematology/Oncology [facility] [place] [address] [place] [address] Bouchra Del Cid CRNP 400 [facility] [place] [address] 08/05/2023 1:00 PM EDT Nurse Only Ancillary [address] [place] [address] [place], Nurse [facility] [address] [place] [address] [place] [address] 09/20/2023 8:00 AM EDT Laboratory Lab Mobile Phlebotomy [facility] [address] [place] [address] [facility] Mobile Home Draw [address] [place] [address] 09/24/2023 11:30 AM EDT Office Visit Nephrology, [facility] 200 [facility] [place] [address] ZeKary bliss PA-C 200 [facility] [place] [address] 12/20/2023 8:00 AM EDT Laboratory Lab Mobile Phlebotomy [facility] [address] [place] [address] [facility] Mobile Home Draw [address] [place] [address] 03/27/2024 8:00 AM EST Laboratory Lab Mobile Phlebotomy [facility] [address] [place] [address] [facility] Mobile Home Draw [address] [place] [address] Scheduled Procedures Name Priority Associated Diagnoses Date/Ti [...] Additional history exists CKD HGB USE SMARTSET 13965 03/06/202403/06, 03/06/2023, 12/19/2022, Additional history exists CKD PHOS USE SMARTSET 80588 03/21/2024 02/0 02/2023, 12/19/2022, 11/28/2022, Additional history [...] this encounter Medical Devices Implanted Type Area Physical Therapist Clinic Director Device Identifier Shelf Expiration Date Model / Serial / Lot [place] Suture Biocomposite - Sn/A - [id number] Implanted:Qty: 2 on 12/13/2021 by Moris Jimenez DO at OR [facility] Left: Leg Lower [employer] 07/18/2024 [id number] / N/A / [id number] Vitoss Bbtrauma Foam Pack - [id number] - [id number] Implanted:Qty: 1 on 12/13/2021 by Moris Jimenez DO at OR [facility] Left: Leg Lower MICHA : TRAUMA 01/15/2022 / [id number] / [id number] documented as of this encounter Visit Diagnoses [...] mg, IV Piggyback, ONCE, 1 dose, On Sat02/05/23 at 1530, Administer over 90 Minutes Start Infusion 02/05/2023 2:17 PM EST 300 mg 166.67 mL/hr NSS infusion 500 mL, Intravenous, at 50 mL/hr, CONTINUOUS, Starting on Sat02/05/23 at 1500, Until Sat02/05/23 at 1956 Start Infusion 02/05/2023 2:17 PM EST 500 mL 50 mL/hr documented in this encounter Advance Directives Latest Code Status on File Code Status Date Activated Date Inactivated Comments Full Code 12/12/2021 7:18 PM 12/20/2021 6:08 PM This order reflects the patients wishes and were consensually agreed upon. Question Answer Comments Discussion of Advance Directives occurred with: Patient Care Teams Kitchen Steward/Stewardess Relationship Specialty Start Date End Date John Blanco MD [address] [place] [address] [place] [phone] PCP - General Family Medicine 04/23/18 03/07/23 documented as of this encounter
--- OUTSIDE RECORDS SUMMARY | 2023-07-10 17:56 | External Medical Summary ---
Author Name Unknown Address Unknown Organization K0[facility] [place] [address] [place] [address] Laboratory Report Ordering Provider Test Date Status SONIA PANTOJA 04/03/2023 11:30:00 Final Standing order for pt/inr. < br/>Please draw pt/inr every 1 to 4 weeks as requested.
Results to [facility]

Warfarin Therapy
INR: 2.0-3.0 conventional anticoagulation
INR: 2.5-3.5 high intensity anticoagulation Observation Date Value Abnormality Reference (Units ) Status PT 04/03/2023 11:30:00 40.0 Above high normal 11 .6-15.2 (seconds) Final Results rechecked. INR 04/03/2023 11:30:00 4.1 Above high normal 0. 8-1.2 Final Results rechecked. Performing Location [facility] [place] [address]
--- OUTSIDE RECORDS SUMMARY | 2023-07-10 17:56 | External Medical Summary | Summary of Care ---
Author Name Unknown Organization [facility] Address [facility] [address] Phone [phone] Care Team Providers Care Ton Container Filler Name Role Phone Shara Ray MD Primary Care Provide r Encounter Details Date Type Department Care Team (Late st Contact Info) Description 03/31/2023 Result Scan Unspecified Department Naomi Vila, DO [address] [facility] [place] [address] <No scans attached> Allergies Active Allergy Reactions [...] as of this encounter (statuses as of 03/31/2023) Medications Medication Sig Dispensed Refills Start Date [...] 100 Tablet 0 02/07/2023 4 Active Nystatin [id number] UNIT/ML Mouth/Throat SuspensionIndication s:Thrush Swish and swallow [...] as of this encounter (statuses as of 03/31/2023) Active Problems Problem Noted Date Diagnosed Date [...] 40mg IM/IV CBC Chest Xray Followed by hazardous material technician - Dr. Rashel Sales [facility] Closed nondisplaced fracture of left tibial [...] as of this encounter (statuses as of 03/31/2023) Resolved Problems Problem Noted Date Diagnosed Date [...] Overview: Per CKD protocol #1 ORBIT-AF Research Other*[id number] 06/02/2010 04/18/2011 Overview: PROJECT: #[id number], SPONSOR: [employer], PI: Adolfo De Jesus MD [...] can be closed. CONTACT: Roberto Carlos Huertas, Food Expeditor Type 2 diabetes mellitus wit h hemoglobin [...] as of this encounter (statuses as of 03/31/2023) Immunizations Name Administration Dates Next Due COVID-19 [...] Team (Late st Contact Info) Description 04/03/2023 9:40 AM EST Laboratory Lab Mobile Phlebotomy [facility] [address] [place] [address] [facility], [facility] Mobile Home Draw [address] [place] [address] 04/03/2023 11:00 AM EST Telemedicine [facility] [address] [place] [address] Vincenzo Contreras PA-C [address] [place] [address] Muriel [facility] Senior Producer [address] [place] [address] [place] [address] 04/04/2023 6:00 AM EST Anticoagulation Pharmacy Call Center WB [address] [place] [address] [facility], [facility] 58 60 [facility] [place] [address] 04/08/2023 10:30 AM EST Imaging Radiology [facility] [address] [facility] [place] [address] 04/16/2023 9:30 AM EST Cardiac Studies Cardiology [address] [place] [address] Markus Ashraf [facility] [place] [address] 04/24/2023 10:00 AM EST [facility] [address] [facility] [place] [address] Valentina Laws, TANISHA 132 [facility] [place] [address] 06/04/2023 1:30 PM EDT Office Visit Allergy/Immunology [facility] [place] [address] [place] [address] Macario Pathak MD [address] [place] [address] 06/10/2023 12:20 PM EDT Office Visit Family Medicine [address] [place] [address] Shara Ray MD [address] [place] [address] [place] [address] 06/21/2023 8:00 AM EDT Laboratory Lab Mobile Phlebotomy [facility] [address] [place] [address] [facility], [facility] Mobile Home Draw [address] [place] [address] 06/24/2023 11:00 AM EDT Office Visit Hematology/Oncology [facility] [address] [facility] [place] [address] Bouchra Del Cid CRNP 400 [place] [address] 08/05/2023 1:00 PM EDT Nurse Only Ancillary [address] [place] [address] [place], Nurse [address] [place] [address] 09/20/2023 8:00 AM EDT Laboratory Lab Mobile Phlebotomy [facility] [address] [place] [address] [facility], [facility] Mobile Home Draw [address] [place] [address] 09/24/2023 11:30 AM EDT Office Visit Nephrology, [facility] [address] [facility] [place] [address] ZeKary bliss PA-C [address] [place] [address] 12/20/2023 8:00 AM EDT Laboratory Lab Mobile Phlebotomy [facility] [address] [place] [address] [facility], [facility] Mobile Home Draw [address] [place] [address] 03/27/2024 8:00 AM EST Laboratory Lab Mobile Phlebotomy [facility] [address] [place] [address] [facility], [facility] Mobile Home Draw [address] [place] [place] [address] Scheduled Procedures Name Priority Associated Diagnoses Date/Ti [...] 0 09/02/2019, 08/29/2018, Additional history exists GFR 09/19/2023 03/21/2023, 02/19, 03/06/2023, Additional history exists Mammogram 11/16/2023 11/15/2022, 10/20, 07/03/2021, Additional history exists Albumin/Creatinine Ratio 12/04/2023 023, 02/05/2022, 01/26/2021, Additional history exists CKD HGB USE SMARTSET 25117 03/06/202403/06, 03/06/2023, 12/19/2022, Additional history exists O2 ASSESSMENT COMPLETED IN PAST YEAR FOR COPD 03/19/2024 03/19/2023 CKD PHOS USE SMARTSET 95938 03/21/2024 02/0 02/2023, 12/19/2022, 11/28/2022, Additional history exists DTaP,Tdap,and Td Vaccines (3 [...] this encounter Medical Devices Implanted Type Area Asset Protection Specialist Device Identifier Shelf Expiration Date Model / Serial / Lot Vitoss Bbtrauma Foam Pack - [id number] - [id number] Implanted:Qty: 1 on 12/13/2021 by Moris Jimenez, at OR [facility] Left: Leg Lower MICHA : TRAUMA 01/15/20220131-0511 / [id number] / [id number] documented as of this encounter Procedures Procedure Name Priority Date/Time Associated Diagnosis Comments CARDIOLOGY SCANNED RESULT 03/31/2023 documented in this encounter Results * CARDIOLOGY SCANNED RESULT (03/31/2023) 03/31/2023 Naomi Vila DO OTHER documented in this encounter Advance Directives Latest Code Status on File Code Status Date Activated Date Inactivated Comments Full Code 12/12/2021 7:18 PM 12/20/2021 6:08 PM This order reflects the patients wishes and were consensually agreed upon. Question Answer Comments Discussion of Advance Directives occurred with: Patient Care Teams Ton Container Filler Relationship Specialty Start Date End Date Shara Ray MD [address] [place] [address] [place] [address] PCP - General Family Medicine 03/08/23 documented as of this encounter
--- OUTSIDE RECORDS SUMMARY | 2023-07-10 17:56 | External Medical Summary ---
Author Name Unknown Address Unknown Organization K[facility] [address] [place] [address] Laboratory Report Ordering Provider Test Date Status CHERIE VILLAR 04/03/2023 11:30:00 Final Observation Date Value Abnormality Reference (Units ) Status BUN 04/03/2023 11:30:00 39 Above high normal 6-20 (mg/dL) Final Creatinine 04/03/2023 11:30:00 2.1 Above high normal 0.5-1.0 (mg/dL) Final Glomerular filtration rate/1.73 sq M.predicted [Volume Rate/Area] in Serum, Plasma or Blood by Creatinine-based formula (CKD-EPI) 04/03/2023 11:30:00 25 Below low normal >=60 (mL/min) Final eGFR is calculated based on the CKD-EPI 2020 equation SODIUM 04/03/2023 11:30:00 136 135-146 (m mol/L) Final Potassium 04/03/2023 11:30:00 4.3 3.5-5.1 (m mol/L) Final Cl 04/03/2023 11:30:00 96 Below low normal 98- 107 (mmol/L) Final CO2 04/03/2023 11:30:00 29 22-32 (mmo l/L) Final Anion gap 04/03/2023 11:30:00 11 7-15 (mmol /L) Final Glucose 04/03/2023 11:30:00 149 Above high normal 70 -120 (mg/dL) Final Calcium 04/03/2023 11:30:00 9.8 8.4-10.2 ( mg/dL) Final Performing Location [facility]ORY [facility] [address] [place] [address]
--- OUTSIDE RECORDS SUMMARY | 2023-07-10 17:57 | External Medical Summary | Summary of Care ---
Author Name Unknown Organization [facility] Address 100 [address] [facility] [place] [address] Phone [phone] Care Team Providers Care Diamond Blender Name Role Phone Shara Ray MD Primary Care Provide r Reason for Visit * Reason Onset Date Comments Appointment 03/28/2023 [facility] appointment Encounter Details Date Type Department Care Team (Late st Contact Info) Description 03/28/2023 Telephone Cardiology, [facility] 132 [facility] [place] [address] Markus Ashraf [facility] 132 [facility] [place] [address] Appointment (DC appointment ) Allergies Active Allergy [...] as of this encounter (statuses as of 03/29/2023) Medications Medication Sig Dispensed Refills Start Date [...] 100 Tablet 0 02/07/2023 4 Active Nystatin 409377 UNIT/ML Mouth/Throat SuspensionIndication s:Thrush Swish and swallow [...] tablets by mouth daily as directed by [facility] 180 Tablet 3 03/06/2023 [...] as of this encounter (statuses as of 03/29/2023) Active Problems Problem Noted Date Diagnosed Date [...] 40mg IM/IV CBC Chest Xray Followed by tailercpa - Dr. Rashel Sales [facility] Closed nondisplaced fracture of left tibial tuberosity with routine healing 12/12/2021 Mild protein-calorie malnutrition 12/05/2021 Controlled substance agreement signed 12/05/2021 Hematoma of leg, left, subsequent encounter 09/2021 Overview: [facility] ER ulstrasound shows hematoma [...] as of this encounter (statuses as of 03/29/2023) Resolved Problems Problem Noted Date Diagnosed Date [...] Overview: Per CKD protocol #1 ORBIT-AF Research Other*[id number] 06/02/2010 04/18/2011 Overview: PROJECT: #[id number], SPONSOR: [employer], PI: Adolfo De Jesus MD [...] can be closed. CONTACT: Roberto Carlos Huertas, Laboratory Animal Facility Supervisor Type 2 diabetes mellitus wit h [...] as of this encounter (statuses as of 03/29/2023) Immunizations Name Administration Dates Next Due COVID-19 [...] Contreras LPN - 03/28/2023 7:08 AM EST MyG message sent regarding rescheduling [place] appointment 04/02/2023 documented in this encounter Plan of Treatment Upcoming Encounters Date Type Department Care Team (Late st Contact Info) Description 04/03/2023 9:40 AM EST Laboratory Lab Mobile Phlebotomy [facility] [address] [place] [address] [facility] Mobile Home Draw [address] [place] [address] 04/03/2023 11:00 AM EST Telemedicine [facility], [facility] [address] [place] [address] Vincenzo Contreras PA-C [address] [place] [address] Muriel Lipscomb [address] [place] [address] 04/04/2023 6:00 AM EST Anticoagulation Pharmacy Call Center 58-60 [facility] [place] [address] [facility] 58 60 [facility] [place] [address] 04/08/2023 10:30 AM EST Imaging Radiology [facility] [address] [place] [address] 04/16/2023 9:30 AM EST Cardiac Studies Cardiology [address] [place] [address] Markus Ashraf [facility] [address] [place] [address] 04/24/2023 10:00 AM EST [facility] Visit [facility], [facility] [address] [place] [address] Valentina Laws, RN [address] [place] [address] 06/04/2023 1:30 PM EDT Office Visit Allergy/Immunology [facility] [address] [place] [address] Macario Pathak MD [address] [place] [address] 06/10/2023 12:20 PM EDT Office Visit Family Medicine [address] [place] [address] Shara Ray MD [address] [place] [address] [place] [address] 06/21/2023 8:00 AM EDT Laboratory Lab Mobile Phlebotomy [facility] [address] [place] [address] [facility] Mobile Home Draw [address] [place] [address] 06/24/2023 11:00 AM EDT Office Visit Hematology/Oncology [facility] 200 [facility] [place] [address] Bouchra Del Cid, SOFI 400 [place] [address] 08/05/2023 1:00 PM EDT Nurse Only Ancillary [address] [place] [address] [place], Nurse [address] [place] [address] 09/20/2023 8:00 AM EDT Laboratory Lab Mobile Phlebotomy [facility] [address] [place] [address] [facility] Mobile Home Draw [address] [place] [address] 09/24/2023 11:30 AM EDT Office Visit Nephrology, [facility] 200 [facility] [place] [address] Kary Pena PA-C 200 [facility] [place] [address] 12/20/2023 8:00 AM EDT Laboratory Lab Mobile Phlebotomy [facility] 100 N [facility] [place] [address] [facility] Mobile Home Draw [address] [place] [address] 03/27/2024 8:00 AM EST Laboratory Lab Mobile Phlebotomy [facility] [address] [place] [address] [facility] Mobile Home Draw [address] [place] [address] Scheduled Procedures Name Priority Associated Diagnoses Date/Ti [...] Additional history exists CKD HGB USE SMARTSET 68510 03/06/202403/06, 03/06/2023, 12/19/2022, Additional history exists O2 ASSESSMENT COMPLETED IN PAST YEAR FOR COPD 03/19/2024 03/19/2023 CKD PHOS USE SMARTSET 53983 03/21/2024 02/0 02/2023, 12/19/2022, 11/28/2022, Additional history [...] this encounter Medical Devices Implanted Type Area Laser Systems Engineer Device Identifier Shelf Expiration Date Model / Serial / Lot Vitoss Bbtrauma Foam Pack - [id number] - [id number] Implanted:Qty: 1 on 12/13/2021 by Moris Jimenez DO at OR [facility] Left: Leg Lower MICHA : TRAUMA 01/15/[id number] / [id number] / [id number] documented as of this encounter Advance Directives Latest Code Status on File Code Status Date Activated Date Inactivated Comments Full Code 12/12/2021 7:18 PM 12/20/2021 6:08 PM This order reflects the patients wishes and were consensually agreed upon. Question Answer Comments Discussion of Advance Directives occurred with: Patient Care Teams Diamond Blender Relationship Specialty Start Date End Date Shara Ray MD [address] [place] [address] [place] [address] PCP - General Family Medicine 03/08/23 documented as of this encounter
--- OUTSIDE RECORDS SUMMARY | 2023-07-10 17:57 | External Medical Summary | Summary of Care ---
Author Name Unknown Organization [facility] Address 100 N [facility] [place] [address] Phone [phone] Care Team Providers Care Truck Crane Operator Helper Name Role Phone Shara Ray MD Primary Care Provide r Reason for Visit * Reason Onset Date Comments Appointment 03/28/2023 [facility] appointment Encounter Details Date Type Department Care Team (Late st Contact Info) Description 03/28/2023 Telephone Cardiology, [facility] 132 [facility] [place] [address] Markus Ashraf [facility] 132 [facility] [place] [address] Appointment (DC appointment ) Allergies Active Allergy [...] as of this encounter (statuses as of 03/28/2023) Medications Medication Sig Dispensed Refills Start Date [...] 100 Tablet 0 02/07/2023 4 Active Nystatin 410853 UNIT/ML Mouth/Throat SuspensionIndication s:Thrush Swish and swallow [...] tablets by mouth daily as directed by [facility] 180 Tablet 3 03/06/2023 Active [...] as of this encounter (statuses as of 03/28/2023) Active Problems Problem Noted Date Diagnosed Date [...] 40mg IM/IV CBC Chest Xray Followed by box feeder - Dr. Rashel Sales [facility] & Plan: Chronic AC coumadin Atherosclerosis of [place] co ronary artery of [place] heart without angina pectoris documented as of this encounter (statuses as of 03/28/2023) Resolved Problems Problem Noted Date Diagnosed Date [...] Overview: Per CKD protocol #1 ORBIT-AF Research Other*[id number] 06/02/2010 04/18/2011 Overview: PROJECT: #[id number], SPONSOR: Geovanna[employer], PI: Adolfo De Jesus MD [...] can be closed. CONTACT: Roberto Carlos Huertas, Outside Machinist Helper Type 2 diabetes mellitus wit h hemoglobin [...] as of this encounter (statuses as of 03/28/2023) Immunizations Name Administration Dates Next Due COVID-19 [...] AM EST MyG message sent regarding rescheduling [facility] appointment 04/02/2023 documented in this encounter Plan of Treatment Upcoming Encounters Date Type Department Care Team (Late st Contact Info) Description 04/02/2023 2:00 PM EST Cardiac Studies Cardiology [address] [place] [phone] Markus Ashraf [address] [place] [address] 04/03/2023 9:40 AM EST Laboratory Lab Mobile Phlebotomy [facility] [address] [place] [address] [facility] Mobile Home Draw [address] [place] [address] 04/03/2023 11:00 AM EST Telemedicine [facility], [facility] 132 [facility] [place] [address] Vincenzo Contreras PA-C 132 [facility] [place] [address] Muriel Lipscomb, [address] [place] [address] 04/04/2023 6:00 AM EST Anticoagulation Pharmacy Call Center WB 58-60 [facility] [place] [address] [facility] 58 60 [facility] [address] 04/08/2023 10:30 AM EST Imaging Radiology [facility] 132 [facility] [place] [address] 04/24/2023 10:00 AM EST [facility] Visit [facility] [place], [facility] 132 [facility] [place] [address] Valentina Laws, RN 132 [facility] [place] [address] 06/04/2023 1:30 PM EDT Office Visit Allergy/Immunology [facility] [place] [address] [place] [address] Macario Pathak MD [address] [place] [address] 06/10/2023 12:20 PM EDT Office Visit Family Medicine [address] [place] [address] Shara Ray MD [address] [place] [address] [place] [address] 06/21/2023 8:00 AM EDT Laboratory Lab Mobile Phlebotomy [facility] [address] [place] [address] [facility] Mobile Home Draw [address] [place] [address] 06/24/2023 11:00 AM EDT Office Visit Hematology/Oncology [facility] [place] [facility] 200 [facility] [place] [address] Bouchra Del Cid, SOFI 400 [place] [address] 08/05/2023 1:00 PM EDT Nurse Only Ancillary [address] [place] [address] [place], Nurse [address] [place] [address] 09/20/2023 8:00 AM EDT Laboratory Lab Mobile Phlebotomy [facility] [address] [place] [address] [facility] Mobile Home Draw [address] [place] [address] 09/24/2023 11:30 AM EDT Office Visit Nephrology, [facility] 200 [facility] [place] [address] Kary Pena PA-C 200 [facility] [place] [address] 12/20/2023 8:00 AM EDT Laboratory Lab Mobile Phlebotomy [facility] 100 N [facility] [address] [facility] Mobile Home Draw [address] [place] [address] 03/27/2024 8:00 AM EST Laboratory Lab Mobile Phlebotomy [facility] [address] [place] [address] [facility] Mobile Home Draw [address] [place] [address] Scheduled Procedures Name Priority Associated Diagnoses Date/Ti [...] Additional history exists CKD HGB USE SMARTSET 52826 03/06/202403/06, 03/06/2023, 12/19/2022, Additional history exists O2 ASSESSMENT COMPLETED IN PAST YEAR FOR COPD 03/19/2024 03/19/2023 CKD PHOS USE SMARTSET 34541 03/21/2024 02/0 02/2023, 12/19/2022, 11/28/2022, Additional history [...] this encounter Medical Devices Implanted Type Area Salesperson Pianos [employer] Device Identifier Shelf Expiration Date Model / Serial / Lot Vitoss Bbtrauma Foam Pack - [id number] - [id number] Implanted:Qty: 1 on 12/13/2021 by Moris Jimenez DO at OR [facility] Left: Leg Lower MICHA : TRAUMA 01/15/20223753-2463 / [id number] / [id number] documented as of this encounter Advance Directives Latest Code Status on File Code Status Date Activated Date Inactivated Comments Full Code 12/12/2021 7:18 PM 12/20/2021 6:08 PM This order reflects the patients wishes and were consensually agreed upon. Question Answer Comments Discussion of Advance Directives occurred with: Patient Care Teams Truck Crane Operator Helper Relationship Specialty Start Date End Date Shara Ray MD [address] [place] [address] [place] [address] PCP - General Family Medicine 03/08/23 documented as of this encounter
--- OUTSIDE RECORDS SUMMARY | 2023-07-10 17:57 | External Medical Summary | Summary of Care ---
Author Name Unknown Organization [facility] Address [address] [facility] [address] Phone [phone] Care Team Providers Care Steel Fabricating Supervisor Name Role Phone Shara Ray MD Primary Care Provide r Reason for Visit * Reason Onset Date Comments Test Results 03/26/2023 Encounter Details Date Type Department Care Team (Late st Contact Info) Description 03/26/2023 Telephone NephrologyJudson 200 [facility] [place] [address] CrespoAurea castillo MD 200 [place] [address] Test Results Allergies Active Allergy Reactions Criticality [...] 100 Tablet 0 02/07/2023 4 Active Nystatin 572958 UNIT/ML Mouth/Throat SuspensionIndication s:Thrush Swish and swallow [...] 40mg IM/IV CBC Chest Xray Followed by chemical maker - Dr. Rashel Sales [facility] Closed nondisplaced fracture of left tibial tuberosity with routine healing 12/12/2021 Mild protein-calorie malnutrition 12/05/2021 Controlled substance agreement signed 12/05/2021 Hematoma of leg, left, subsequent encounter 09/2021 Overview: [facility] ER ulstrasound shows hematoma calf, INR 4.2, [...] & Plan: Symptoms well controlled on omeprazole lay out carpenter current use of anticoagulant therapy 0 05/10/2004 Overview: ICD-10 update of inactive term Rheumatic heart disease 03/05/2002 Old myocardial infarct 01/02/2001 Last Assessment & Plan: Continue Crestor 20 mg daily S/P mitral valve replacement Last Assessment & Plan: Chronic AC coumadin Atherosclerosis of [place] co ronary artery of [place] heart without angina pectoris documented as of [...] Overview: Per CKD protocol #1 ORBIT-AF Research Other*[id number] 06/02/2010 04/18/2011 Overview: PROJECT: #[id number], SPONSOR: Geovanna[employer]Geov[employer], PI: Adolfo De Jesus MD [...] can be closed. CONTACT: Roberto Carlos Huertas, Mechanical Tech Type 2 diabetes mellitus wit h [...] encounter Miscellaneous Notes * Addendum Note - Aurea Crespo MD - 03/28/2023 11:19 AM ESTAddended by: AUREA CRESPO on: 03/28/2023 11:19 AM Modules accepted: Orders * Addendum Note - Avelina Guzmán RN - 03/26/2023 2:50 PM ESTAddended by: AVELINA GUZMÁN on: 03/26/2023 02:50 PM Modules accepted: Orders * Telephone Encounter - Aurea Crespo MD - 03/26/2023 2:29 PM EST Noted and appreciatd. Kidney labs stable Recommend losartan 25 mg daily Rpeat bmp w/ mobile lab afte r2 wks on new med * Telephone Encounter - Avelina Guzmán RN - 03/26/2023 8:18 AM EST Pt had labs drawn on 03/21/23 instead of waiting till 04/03-Please review results and address. * Telephone Encounter - Avelina Guzmán RN - 03/26/2023 8:18 AM EST ----- Message from Aurea Crespo MD sent at 03/19/2023 5:54 PM EST ----- Regarding: labs, imaging Pls have mobile lab get her studies on 04/03 Pls let pt know you did this an dmake armond eordrs ok (she gets mobile q wed) Also pls let her know I recommend renal u/s to make sure we're up to date on renal care > order in for MV documented in this encounter Plan of Treatment Upcoming Encounters Date Type Department Care Team (Late st Contact Info) Description 04/02/2023 2:00 PM EST Cardiac Studies Cardiology [address] [place] [address] Andriy Pacejosefina [address] [place] [address] 04/03/2023 9:40 AM EST Laboratory Lab Mobile Phlebotomy [facility] 100 N [facility] [place] [address] [facility], [facility] Mobile Home Draw [address] [place] [address] 04/03/2023 11:00 AM EST Telemedicine [facility], [facility] 132 [facility] [place] [address] Vincenzo Contreras PA-C 132 [facility] [place] [address] [facility] Silver Steward [address] [place] [address] [place] [address] 04/04/2023 6:00 AM EST Anticoagulation Pharmacy Call Center 58[address] [place] [address] [facility], [facility] 58 60 [facility] [place] [address] 04/08/2023 10:30 AM EST Imaging Radiology [facility] 132 [facility] [place] [address] 04/24/2023 10:00 AM EST Home Visit [facility], [facility] 132 [facility] [place] [address] Valentina Laws, TANISHA 132 [facility] [place] [address] 06/04/2023 1:30 PM EDT Office Visit Allergy/Immunology [facility] [place] 200 [facility] [place] [address] Macario Pathak MD [address] [place] [address] 06/10/2023 12:20 PM EDT Office Visit Family Medicine [address] [place] [phone] Shara Ray MD [address] [place] [address] [place] [address] 06/21/2023 8:00 AM EDT Laboratory Lab Mobile Phlebotomy [facility] [address] [place] [address] [facility], [facility] Mobile Home Draw [address] [place] [address] 06/24/2023 11:00 AM EDT Office Visit Hematology/Oncology [facility] 200 [facility] [place] [address] Bouchra Del Cid CRNP 400 [place] [address] 08/05/2023 1:00 PM EDT Nurse Only Ancillary [address] [place] [address] [place], Nurse [address] [place] [address] 09/20/2023 8:00 AM EDT Laboratory Lab Mobile Phlebotomy [facility] [address] [place] [address] [facility], [facility] Mobile Home Draw [address] [place] [address] 09/24/2023 11:30 AM EDT Office Visit Nephrology, [facility] 200 [facility] [address] [place] [address] Kary Pena PA-C 200 [facility] [place] [address] 12/20/2023 8:00 AM EDT Laboratory Lab Mobile Phlebotomy [facility] [address] [place] [address] [facility], [facility] Mobile Home Draw [address] [place] [address] 03/27/2024 8:00 AM EST Laboratory Lab Mobile Phlebotomy [facility] [address] [place] [address] [facility], [facility] Mobile Home Draw [address] [place] [address] Scheduled Orders Name Type Priority Associated Diagnoses Orde r Schedule BASIC METABOLIC PANEL Lab Routine Hypertensive heart and kidney disease with chronic diastolic congestive heart failure and stage 3b chronic kidney disease (HCC) Expected: 04/09/2023 (Approximate), Expires: 03/26/2024 Scheduled Procedures Name Priority Associated Diagnoses Date/Ti [...] Additional history exists CKD HGB USE SMARTSET 85832 03/06/202403/06, 03/06/2023, 12/19/2022, Additional history exists O2 ASSESSMENT COMPLETED IN PAST YEAR FOR COPD 03/19/2024 03/19/2023 CKD PHOS USE SMARTSET 52561 03/21/2024 02/0 02/2023, 12/19/2022, 11/28/2022, Additional history [...] this encounter Medical Devices Implanted Type Area Horse Identifier Device Identifier Shelf Expiration Date Model / Serial / Lot Vitoss Bbtrauma Foam Pack - [id number] - [id number] Implanted:Qty: 1 on 12/13/2021 by Moris Jimenez DO at OR [facility] Left: Leg Lower MICHA : TRAUMA 01/15/[id number] / [id number] / [id number] documented as of this encounter Visit Diagnoses [...] Advance Directives occurred with: Patient Care Teams Steel Fabricating Supervisor Relationship Specialty Start Date End Date Shara Ray MD [address] [place] [address] [place] [address] PCP - General Family Medicine 03/08/23 documented as of this encounter
--- OUTSIDE RECORDS SUMMARY | 2023-07-10 17:58 | External Medical Summary ---
Author Name Unknown Address Unknown Organization K01:[facility] [place] [address] [place] [place] [address] Laboratory Report Ordering Provider Test Date Status SONIA PANTOJA 03/27/2023 11:15:00 Final Standing order for pt/inr. < br/>Please draw pt/inr every 1 to 4 weeks as requested.
Results to [facility]

Warfarin Therapy
INR: 2.0-3.0 conventional anticoagulation
INR: 2.5-3.5 high intensity anticoagulation Observation Date Value Abnormality Reference (Units ) Status PT 03/27/2023 11:15:00 29.2 Above high normal 11 .6-15.2 (seconds) Final INR 03/27/2023 11:15:00 2.7 Above high normal 0. 8-1.2 Final Performing Location [facility] [address] [place] [address]
--- OUTSIDE RECORDS SUMMARY | 2023-07-10 17:58 | External Medical Summary | Summary of Care ---
Author Name Unknown Organization [facility] Address 100 N [facility] [place] [address] Phone [phone] Care Team Providers Care Chest Painting And Sealing Supervisor Name Role Phone Shara Ray MD Primary Care Provide r Reason for Visit * Reason Onset Date Comments Appointment 03/28/2023 [facility] appointment Encounter Details Date Type Department Care Team (Late st Contact Info) Description 03/28/2023 Telephone Cardiology, [facility] 132 [facility] [place] [address] Markus Ashraf [facility] 132 [facility] [place] [address] Appointment (DC appointment ) Allergies Active Allergy [...] 100 Tablet 0 02/07/2023 4 Active Nystatin 163688 UNIT/ML Mouth/Throat SuspensionIndication s:Thrush Swish and swallow [...] 40mg IM/IV CBC Chest Xray Followed by proof technician helper - Dr. Rashel Sales [facility] Closed nondisplaced fracture of left [...] Chronic AC coumadin Atherosclerosis of [place] co ronary artery of [place] heart without angina pectoris documented as of [...] Overview: Per CKD protocol #1 ORBIT-AF Research Other*[id number] 06/02/2010 04/18/2011 Overview: PROJECT: #[id number], SPONSOR: [employer]ovanna[employer]Geov[employer], PI: Adolfo De Jesus MD [...] can be closed. CONTACT: Roberto Carlos Huertas, Supervisor [employer] Type 2 diabetes mellitus wit h hemoglobin [...] AM EST MyG message sent regarding rescheduling [place] appointment 04/02/2023 documented in this encounter Plan of Treatment Upcoming Encounters Date Type Department Care Team (Late st Contact Info) Description 04/02/2023 2:00 PM EST Cardiac Studies Cardiology [address] [place] [phone] Markus Ashraf [address] [place] [phone] 04/03/2023 11:00 AM EST Telemedicine [facility], [facility] 132 [facility] [place] [address] Vincenzo Contreras PA-C 132 [facility] [place] [address] [facility] Satellite Communications Operator [address] [place] [address] [place] [address] 04/08/2023 10:30 AM EST Imaging Radiology [facility] 132 [facility] [place] [address] 04/24/2023 10:00 AM EST Home Visit [facility], [facility] 132 [facility] [place] [address] Valentina Laws RN 132 [facility] [place] [address] 06/04/2023 1:30 PM EDT Office Visit Allergy/Immunology [facility] [address] [place] [address] Macario Pathak MD [address] [place] [address] 06/10/2023 12:20 PM EDT Office Visit Family Medicine [address] [place] [phone] Shara Ray MD [address] [place] [address] [place] [address] 06/21/2023 8:00 AM EDT Laboratory Lab Mobile Phlebotomy [facility] [address] [place] [address] [facility], [facility] Mobile Home Draw [address] [place], [place] [address] 06/24/2023 11:00 AM EDT Office Visit Hematology/Oncology [facility] [address] [place] [address] Bouchra Del Cid CRNP [address] [place] [address] 08/05/2023 1:00 PM EDT Nurse Only Ancillary [address] [place] [address] [place], Nurse [address] [place] [address] 09/20/2023 8:00 AM EDT Laboratory Lab Mobile Phlebotomy [facility] [address] [place] [address] [facility], [facility] Mobile Home Draw [address] [place] [address] 09/24/2023 11:30 AM EDT Office Visit Nephrology, [facility] 200 [facility] [place] [address] ZemaKary velazco PA-C 200 [facility] [place] [address] 12/20/2023 8:00 AM EDT Laboratory Lab Mobile Phlebotomy [facility] [address] [place] [address] [facility], [facility] Mobile Home Draw [address] [place] [address] 03/27/2024 8:00 AM EST Laboratory Lab Mobile Phlebotomy [facility] [address] [place], [place] [address] [facility], [facility] Mobile Home Draw [address] [place], [place] [address] Scheduled Procedures Name Priority Associated Diagnoses Date/Ti [...] Additional history exists CKD HGB USE SMARTSET 07383 03/06/202403/06, 03/06/2023, 12/19/2022, Additional history exists O2 ASSESSMENT COMPLETED IN PAST YEAR FOR COPD 03/19/2024 03/19/2023 CKD PHOS USE SMARTSET 72739 03/21/2024 02/0 02/2023, 12/19/2022, 11/28/2022, Additional history [...] this encounter Medical Devices Implanted Type Area Histotechnician Device Identifier Shelf Expiration Date Model / Serial / Lot Vitoss Bbtrauma Foam Pack - [id number] - [id number] Implanted:Qty: 1 on 12/13/2021 by Moris Jimenez, DO at OR [facility] Left: Leg Lower MICHA : TRAUMA 01/15/2022 / [id number] / [id number] documented as of this encounter Advance Directives Latest Code Status on File Code Status Date Activated Date Inactivated Comments Full Code 12/12/2021 7:18 PM 12/20/2021 6:08 PM This order reflects the patients wishes and were consensually agreed upon. Question Answer Comments Discussion of Advance Directives occurred with: Patient Care Teams Chest Painting And Sealing Supervisor Relationship Specialty Start Date End Date hSara Ray MD [address] [place] [address] [place] [address] PCP - General Family Medicine 03/08/23 documented as of this encounter
--- OUTSIDE RECORDS SUMMARY | 2023-07-10 17:58 | External Medical Summary | Summary of Care ---
Author Name Unknown Organization [facility] Address 100 N [facility] [place] [address] Phone [phone] Care Team Providers Care Biometrics Experimentalist Name Role Phone Shara Ray MD Primary Care Provide r Reason for Visit * Reason Comments Dosage Adjustment Via Phone (anticoag Cl inic) Encounter Details Date Type Department Care Team (Latest Contact Info) Description 03/28/2023 6:00 AM EST Anticoagulation Pharmacy Call Center [address] [place] [address] [facility] 58 60 [facility] [place] [address] termite control service representative current use of anticoagulant therapy*; History of [...] 100 Tablet 0 02/07/2023 4 Active Nystatin 938948 UNIT/ML Mouth/Throat SuspensionIndication s:Thrush Swish and swallow [...] by mouth daily as directed by [facility] 180 Tablet 3 03/06/2023 [...] 40mg IM/IV CBC Chest Xray Followed by supervisor tower - Dr. Rashel Sales [facility] [...] & Plan: Symptoms well controlled on omeprazole correction current use of anticoagulant therapy 0 05/10/2004 Overview: ICD-10 update of inactive term Rheumatic heart disease 03/05/2002 Old myocardial infarct 01/02/2001 Last Assessment & Plan: Continue Crestor 20 mg daily S/P mitral valve replacement Last Assessment & Plan: Chronic AC coumadin Atherosclerosis of [place] co ronary artery of [place] heart without angina pectoris documented as of [...] Overview: Per CKD protocol #1 ORBIT-AF Research Other*[id number] 06/02/2010 04/18/2011 Overview: PROJECT: #[id number], SPONSOR: J&J, PI: Adolfo De Jesus MD [...] can be closed. CONTACT: Roberto Carlos Huertas, Ditto Machine Operator Type 2 diabetes mellitus wit [...] as of this encounter Progress Notes * Jayy Harper CPhT - 03/28/2023 10:06 AM EST Contacts Type Contact Phone/Fax 03/28/2023 10:04 AM EST Phone (Outgoing) Abdi Bowling (Self) [phone] (M) Spoke to Patient Subjective Patient Findings [...] noted by Pharmacist: Yes Jayy Harper CPhT 03/28/2023, 10:06 AM * Harry Villagomez RPh - 03/28/2023 8:12 AM EST Images from the original note were not included. Coumadin Clinic (region specific) Objective Current Warfarin Dose As of 03/28/2023 Warfarin maintenance plan: 5 mg (2.5 mg x 2) every Tue, Wed, Fri; 3.75 mg (2.5 mg x 1.5) all other days INR Result As of 03/28/2023 INR goal: 3.0-3.5 INR used for dosin.7 (03/27/2023) Assessment & Plan Warfarin Plan As of 03/28/2023 Full warfarin instructions: 03/28: 5 mg; Otherwise 5 mg every Tue, Wed, Fri; 3.75 mg all other days Next INR check: 04/03/2023 Repeat PT/INR in 1 week(s) Weekly dose: not changed Additional Dosing Information: Description [facility] Dunn Wed ([facility], [facility], [facility]) Please also send [email or web address] to contact patient with dose instructions as noted. Harry Villagomez RPh 03/28/2023, 8:12 AM documented in this encounter Plan of Treatment Upcoming Encounters Date Type Department Care Team (Late st Contact Info) Description 04/02/2023 2:00 PM EST Cardiac Studies Cardiology [address] [place] [address] Markus Ashraf [address] [place] [address] 04/03/2023 9:40 AM EST Laboratory Lab Mobile Phlebotomy [facility] 100 [facility] [place] [address] [facility], [facility] Mobile Home Draw [address] [place] [address] 04/03/2023 11:00 AM EST Telemedicine [facility], [facility] 132 [facility] [place] [address] Vincenzo Contreras PA-C 132 [facility] [place] [address] [facility] Earth Burner [address] [place] [address] [place] [address] 04/04/2023 6:00 AM EST Anticoagulation Pharmacy Call Center WB [address] [place] [address] [facility], [facility] 58 60 [place] [address] 04/08/2023 10:30 AM EST Imaging Radiology [facility] 132 [facility] [place] [address] 04/24/2023 10:00 AM EST Home Visit [facility], [facility] 132 [facility] [place] [address] Valentina Laws, TANISHA 132 [facility] [place] [address] 06/04/2023 1:30 PM EDT Office Visit Allergy/Immunology [facility] [address] [place] [address] Macario Pathak MD [address] [place] [address] 06/10/2023 12:20 PM EDT Office Visit [address] [place] [phone] Shara Ray MD [address] [place] [address] [place] [address] 06/21/2023 8:00 AM EDT Laboratory Lab Mobile Phlebotomy [facility] [address] [place] [address] [facility], [facility] Mobile Home Draw [address] [place] [address] 06/24/2023 11:00 AM EDT Office Visit Hematology/Oncology [facility] [address] [facility] [place] [address] Bouchra Del Cid CRNP 400 [place] [address] 08/05/2023 1:00 PM EDT Nurse Only Ancillary [address] [place] [address] [place], Nurse [address] [place] [address] 09/20/2023 8:00 AM EDT Laboratory Lab Mobile Phlebotomy [facility] [address] [place] [address] [facility], [facility] Mobile Home Draw [address] [place] [address] 09/24/2023 11:30 AM EDT Office Visit Nephrology, [facility] [address] [facility] [address] [place] [address] ZeKary bliss PA-C [address] [facility] [place] [address] 12/20/2023 8:00 AM EDT Laboratory Lab Mobile Phlebotomy [facility] [address] [place] [address] [facility], [facility] Mobile Home Draw [address] [place] [address] 03/27/2024 8:00 AM EST Laboratory Lab Mobile Phlebotomy [facility] [address] [place] [address] [facility], [facility] Mobile Home Draw [address] [place] [address] Scheduled Procedures Name Priority Associated Diagnoses Date/Ti [...] Additional history exists CKD HGB USE SMARTSET 78323 03/06/202403/06, 03/06/2023, 12/19/2022, Additional history exists O2 ASSESSMENT COMPLETED IN PAST YEAR FOR COPD 03/19/2024 03/19/2023 CKD PHOS USE SMARTSET 12590 03/21/2024 02/0 02/2023, 12/19/2022, 11/28/2022, Additional history [...] encounter Medical Devices Implanted Type Area Photo Graphics Librarian Device Identifier Shelf Expiration Date Model / Serial / Lot Vitoss Bbtrauma Foam Pack - [id number] - [id number] Implanted:Qty: 1 on 12/13/2021 by Moris Jimenez, DO at OR [facility] Left: Leg Lower MICHA : TRAUMA 01/15/20225164-0680 / [id number] / [id number] documented as of this encounter Visit Diagnoses Diagnosis termite control service representative current use of anticoagulant therapy- Primary History [...] Advance Directives occurred with: Patient Care Teams Biometrics Experimentalist Relationship Specialty Start Date End Date Shara Ray MD [address] [place] [address] [place] [address] PCP - General Family Medicine 03/08/23 documented as of this encounter
--- OUTSIDE RECORDS SUMMARY | 2023-07-10 17:58 | External Medical Summary | Summary of Care ---
Author Name Unknown Organization [facility] Address [facility] [address] Phone [phone] Care Team Providers Care Tool Carrier Name Role Phone Shara Ray MD Primary Care Provide r Reason for Visit * Reason Onset Date Comments Test Results 03/26/2023 Encounter Details Date Type Department Care Team (Late st Contact Info) Description 03/26/2023 Telephone NephrologyJudson 200 [facility] [place] [address] LaceyAliyah castillo MD 200 [place] [address] Test Results Allergies Active Allergy Reactions Criticality [...] as of this encounter (statuses as of 03/26/2023) Medications Medication Sig Dispensed Refills Start Date [...] 100 Tablet 0 02/07/2023 4 Active Nystatin 129747 UNIT/ML Mouth/Throat SuspensionIndication s:Thrush Swish and swallow [...] as of this encounter (statuses as of 03/26/2023) Active Problems Problem Noted Date Diagnosed Date [...] 40mg IM/IV CBC Chest Xray Followed by dermatology specialist - Dr. 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 0 05/10/2004 Overview: ICD-10 update of inactive term Rheumatic heart disease 03/05/2002 Old myocardial infarct 01/02/2001 Last Assessment & Plan: Continue Crestor 20 mg daily S/P mitral valve replacement Last Assessment & Plan: Chronic AC coumadin Atherosclerosis of [place] ronary artery of [place] heart without angina pectoris documented as of this encounter (statuses as of 03/26/2023) Resolved Problems Problem Noted Date Diagnosed Date [...] Overview: Per CKD protocol #1 ORBIT-[employer] Research Other*[id number] 06/02/2010 04/18/2011 Overview: PROJECT: #[id number], SPONSOR: Aileen, PI: Adolfo De Jesus MD [...] can be closed. CONTACT: Roberto Carlos Huertas, Solid Plasterer Type 2 diabetes mellitus wit h hemoglobin [...] as of this encounter (statuses as of 03/26/2023) Immunizations Name Administration Dates Next Due COVID-19 [...] encounter Miscellaneous Notes * Addendum Note - Avelina Guzmán RN - 03/26/2023 2:50 PM ESTAddended by: AVELINA GUZMÁN on: 03/26/2023 02:50 PM Modules accepted: Orders * Telephone Encounter - Aliyah Lacey MD - 03/26/2023 2:29 PM EST Noted [...] 03/26/2023 8:18 AM EST ----- Message from Aliyah Lacey MD sent at 03/19/2023 5:54 PM EST ----- Regarding: labs, imaging Pls have mobile lab get her studies on 04/03 Pls let pt know you did this an dmake armond eordrs ok (she gets mobile q sat) Also pls let her know I recommend renal u/s to make sure we're up to date on renal care > order in for MV documented in this encounter Plan of Treatment Upcoming Encounters Date Type Department Care Team (Late st Contact Info) Description 03/27/2023 9:40 AM EST Laboratory Lab [place] [facility] [place] [address] [place] [address] [facility], [facility] Mobile Home Draw [address] [place] [address] 03/28/2023 6:00 AM EST Anticoagulation Pharmacy Call Center WB 58[facility] [place] [address] [facility] 58 60 [facility] [place] [address] 04/02/2023 2:00 PM EST Cardiac Studies Cardiology [address] [place] [address] [place], [facility] [address] [place] [address] 04/03/2023 11:00 AM EST [facility]medicine [facility], [facility] 132 [facility] [place] [address] Vincenzo Contreras PA-C 132 [facility] [place] [address] Muriel Lipscomb, Community [facility] Jack Winder [address] [place] [address] [place] [address] 04/08/2023 10:30 AM EST Imaging Radiology [facility] 132 [facility] [place] [address] 04/24/2023 10:00 AM EST Home Visit [facility] [place], [facility] 132 [facility] [place] [address] Valentina Laws RN 132 [facility] [place] [address] 06/04/2023 1:30 PM EDT Office Visit Allergy/Immunology [facility] [address] [place] [address] Macario Pathak MD [address] [place] [address] 06/10/2023 12:20 PM EDT Office Visit Family [address] [place] [address] Shara Ray MD [address] [place] [address] [place] [address] 06/21/2023 8:00 AM EDT Laboratory Lab [place] [facility] [place] [address] [place] [address] [facility], [facility] Mobile Home Draw [address] [place], [place] [address] 06/24/2023 11:00 AM EDT Office Visit Hematology/Oncology [facility] [address] [place] [address] Bouchra Del Cid CRNP [address] [place] [address] 08/05/2023 1:00 PM EDT Nurse Only Ancillary [address] [place] [address] [place], Nurse [address] [place] [address] 09/20/2023 8:00 AM EDT Laboratory Lab Mobile Phlebotomy [facility] [place] [place] [address] [place] [address] [facility] Mobile Home Draw [address] [place] [address] 09/24/2023 11:30 AM EDT Office Visit Nephrology, [facility] 200 [facility] [address] [place] [address] ZeKary bliss PA-C [address] [facility] [address] [place] [address] 12/20/2023 8:00 AM EDT Laboratory Lab Mobile Phlebotomy [facility] [place] [place] [address] [place] [address] [facility] Mobile Home Draw [address] [place] [address] 03/27/2024 8:00 AM EST Laboratory Lab Mobile Phlebotomy [facility] [place] [place] [address] [place] [address] [facility], l Mobile Home Draw [address] [place], [place] [id number] Scheduled Orders Name Type Priority Associated Diagnoses [...] Additional history exists CKD HGB USE SMARTSET 61537 03/06/202403/06, 03/06/2023, 12/19/2022, Additional history exists O2 ASSESSMENT COMPLETED IN PAST YEAR FOR COPD 03/19/2024 03/19/2023 CKD PHOS USE SMARTSET 60898 03/21/2024 02/0 02/2023, 12/19/2022, 11/28/2022, Additional history [...] this encounter Medical Devices Implanted Type Area K 12 Principal Device Identifier Shelf Expiration Date Model / Serial / Lot Vitoss Bbtrauma Foam Pack - [id number] - [id number] Implanted:Qty: 1 on 12/13/2021 by Moris Jimenez, DO at OR [facility] Left: Leg Lower MICHA : TRAUMA 01/15/[id number] / [id number] / [id number] documented as of this encounter Visit Diagnoses [...] Advance Directives occurred with: Patient Care Teams Tool Carrier Relationship Specialty Start Date End Date Shara Ray MD [address] [place] [address] [place] [phone] PCP - General Family Medicine 03/08/23 documented as of this encounter
--- OUTSIDE RECORDS SUMMARY | 2023-07-10 17:59 | External Medical Summary | Summary of Care ---
Author Name Unknown Organization [facility] Address 100 [facility] [address] Phone [phone] Care Team Providers Care Complaint Supervisor Name Role Phone Shara Ray MD Primary Care Provide r Reason for Visit * Reason Onset Date Comments Test Results 03/26/2023 Encounter Details Date Type Department Care Team (Late st Contact Info) Description 03/26/2023 Telephone NephrologyJudson 200 [facility] [place] [address] LaceyAliyah castillo MD 200 [place] [address] Test Results Allergies Active Allergy Reactions Criticality [...] 100 Tablet 0 02/07/2023 4 Active Nystatin 379827 UNIT/ML Mouth/Throat SuspensionIndication s:Thrush Swish and swallow [...] 40mg IM/IV CBC Chest Xray Followed by platinumsmith - Dr. 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 CONTACT: Roberto Carlos Huertas, Senior Safety Management Consultant Type 2 diabetes mellitus wit h [...] new med * Telephone Encounter - Avelina Davis RN - 03/26/2023 8:18 AM EST Pt had labs drawn on 03/21/23 instead of waiting till 04/03-Please review results and address. * Telephone Encounter - Avelina Davis RN - 03/26/2023 8:18 AM EST ----- [...] 9:40 AM EST Laboratory Lab Mobile Phlebotomy [facility] [address] [place] [address] [facility] Mobile Home Draw [address] [place] [address] 03/28/2023 6:00 AM EST Anticoagulation Pharmacy Call Center 58[address]60 [place] [address] [facility] 58 60 [place] [address] 04/02/2023 2:00 PM EST Cardiac Studies Cardiology [address] [place] [address] [place], [facility]er [facility] 132 [facility] [place] [address] 04/03/2023 11:00 AM EST Telemedicine [facility] [place], [facility] 132 [facility] [place] [address] Vincenzo Contreras PA-C [address] [place] [address] Muriel Lipscomb [facility] Quality Control Auditor [address] [place] [address] [place] [address] 04/08/2023 10:30 AM EST Imaging Radiology [facility] 132 [facility] [place] [address] 04/24/2023 10:00 AM EST Home Visit [facility], [facility] 132 [facility] [place] [address] Valentina Laws, TNAISHA 132 [facility] [place] [address] 06/04/2023 1:30 PM EDT Office Visit Allergy/Immunology [facility] 200 [facility] [place] [address] Macario Pathak MD 200 [facility] [place] [address] 06/10/2023 12:20 PM EDT Office Visit Family Medicine [address] [place] [phone] Shara Ray MD [address] [place] [address] [place] [address] 06/21/2023 8:00 AM EDT Laboratory Lab Mobile Phlebotomy [facility] [address] [place] [address] [facility] Mobile Home Draw [address] [place] [address] 06/24/2023 11:00 AM EDT Office Visit Hematology/Oncology [facility] [place] 200 [facility] [place] [address] Bouchra Del Cid CRNP 400 [facility] [place] [address] 08/05/2023 1:00 PM EDT Nurse Only Ancillary [address] [place] [address] [place], Nurse [address] [place] [address] 09/20/2023 8:00 AM EDT Laboratory Lab Mobile Phlebotomy [facility] [address] [place] [address] [facility] Mobile Home Draw [address] [place] [address] 09/24/2023 11:30 AM EDT Office Visit Nephrology, [place] [place] [address] [place] [address] ZemaitisKary PA-C [address] [place] [address] 12/20/2023 8:00 AM EDT Laboratory Lab Mobile Phlebotomy [facility] [address] [place] [address] [facility] Mobile Home Draw [address] [place] [address] 03/27/2024 8:00 AM EST Laboratory Lab Mobile Phlebotomy [facility] [address] [place], [place] [id number] [facility] Mobile Home Draw [address] [place], [place] [phone] Scheduled Procedures Name Priority Associated Diagnoses Date/Ti [...] Additional history exists CKD HGB USE SMARTSET 63085 03/06/202403/06, 03/06/2023, 12/19/2022, Additional history exists O2 ASSESSMENT COMPLETED IN PAST YEAR FOR COPD 03/19/2024 03/19/2023 CKD PHOS USE SMARTSET 16382 03/21/2024 02/0 02/2023, 12/19/2022, 11/28/2022, Additional history [...] this encounter Medical Devices Implanted Type Area Panel Machine Operator Device Identifier Shelf Expiration Date Model / Serial / Lot Vitoss Bbtrauma Foam Pack - [id number] - [id number] Implanted:Qty: 1 on 12/13/2021 by Moris Jimenez DO at OR [facility] Left: Leg Lower MICHA : TRAUMA 01/15/2022 [id number] / [id number] / [id number] documented as of this encounter Advance Directives Latest Code Status on File Code Status Date Activated Date Inactivated Comments Full Code 12/12/2021 7:18 PM 12/20/2021 6:08 PM This order reflects the patients wishes and were consensually agreed upon. Question Answer Comments Discussion of Advance Directives occurred with: Patient Care Teams Complaint Supervisor Relationship Specialty Start Date End Date Shara Ray MD [address] [place] [address] [place] [address] PCP - General Family Medicine 03/08/23 documented as of this encounter
--- OUTSIDE RECORDS SUMMARY | 2023-07-10 17:59 | External Medical Summary | Summary of Care ---
Author Name Unknown Organization [facility] Address [facility] [address] Phone [phone] Care Team Providers Care Jet Mechanic Name Role Phone Shara Ray MD Primary Care Provide r Reason for Visit * Reason Onset Date Comments Test Results 03/26/2023 Encounter Details Date Type Department Care Team (Late st Contact Info) Description 03/26/2023 Telephone NephrologyJudson 200 [facility] [place] [address] LaceyAliyah castillo MD 200 [place] [address] Test Results Allergies Active Allergy Reactions Criticality [...] 100 Tablet 0 02/07/2023 4 Active Nystatin 551281 UNIT/ML Mouth/Throat SuspensionIndication s:Thrush Swish and swallow [...] 40mg IM/IV CBC Chest Xray Followed by malt liquors sales supervisor - Dr. 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 CONTACT: Roberto Carlos Huertas, Feather Washer Type 2 diabetes mellitus wit h [...] 9:40 AM EST Laboratory Lab Mobile Phlebotomy [facility] [address] [place] [address] [address] [facility] Mobile Home Draw [address] [place] [address] 03/28/2023 6:00 AM EST Anticoagulation Pharmacy Call Center 58-60 [facility] [place] [address] [facility], [facility] 58 60 [facility] [place] [address] 04/02/2023 2:00 PM EST Cardiac Studies Cardiology [address] [place] [address] [facility] [address] [place] [address] 04/03/2023 11:00 AM EST Telemedicine [facility] 132 [facility] [place] [address] Vincenzo Contreras PA-C 132 [facility] [place] [address] Muriel Lipscomb [address] [place] [address] 04/08/2023 10:30 AM EST Imaging Radiology [facility] 132 [facility] [place] [address] 04/24/2023 10:00 AM EST [facility] Visit [facility] [address] [place] [address] Valentina Laws RN [address] [place] [address] 06/04/2023 1:30 PM EDT Office Visit Allergy/Immunology [facility] [address] [place] [address] Macario Pathak MD [address] [place] [address] 06/10/2023 12:20 PM EDT Office Visit Family Medicine [address] [phone] Shara Ray MD [address] [place] [address] [place] [address] 06/21/2023 8:00 AM EDT Laboratory Lab Mobile Phlebotomy [facility] [address] [place] [address] [facility] Mobile Home Draw [address] [place] [address] 06/24/2023 11:00 AM EDT Office Visit Hematology/Oncology [facility] [address] [facility] [address] [place] [address] Bouchra Del Cid CRNP [address] [place] [address] 08/05/2023 1:00 PM EDT Nurse Only Ancillary [address] [place] [address] Andriy, Nurse [address] [place] [address] 09/20/2023 8:00 AM EDT Laboratory Lab Mobile Phlebotomy [facility] [address] [place] [address] [facility], [facility] Mobile Home Draw [address] [place] [address] 09/24/2023 11:30 AM EDT Office Visit Nephrology, [facility] 200 [facility] [place], [place] [address] ZeKary bliss PA-C 200 [facility] [place], [place] [address] 12/20/2023 8:00 AM EDT Laboratory Lab Mobile Phlebotomy [facility] [address] [place] [address] [facility], [facility] Mobile Home Draw [address] [place] [address] 03/27/2024 8:00 AM EST Laboratory Lab Mobile Phlebotomy [facility] [address] [place] [address] [address] [facility] Mobile Home Draw [address] [place] [address] Scheduled Procedures Name Priority Associated Diagnoses Date/Ti [...] Additional history exists CKD HGB USE SMARTSET 15102 03/06/202403/06, 03/06/2023, 12/19/2022, Additional history exists O2 ASSESSMENT COMPLETED IN PAST YEAR FOR COPD 03/19/2024 03/19/2023 CKD PHOS USE SMARTSET 52245 03/21/2024 02/0 02/2023, 12/19/2022, 11/28/2022, Additional history [...] this encounter Medical Devices Implanted Type Area Ultrasonic Tester Device Identifier Shelf Expiration Date Model / Serial / Lot Vitoss Bbtrauma Foam Pack - [id number] - [id number] Implanted:Qty: 1 on 12/13/2021 by Moris Jimenez, DO at OR [facility] Left: Leg Lower MICHA : TRAUMA 01/15/2022 [id number] / [id number] / [id number] documented as of this encounter Advance Directives Latest Code Status on File Code Status Date Activated Date Inactivated Comments Full Code 12/12/2021 7:18 PM 12/20/2021 6:08 PM This order reflects the patients wishes and were consensually agreed upon. Question Answer Comments Discussion of Advance Directives occurred with: Patient Care Teams Jet Mechanic Relationship Specialty Start Date End Date Shara Ray MD [address] [place] [address] [place] [address] PCP - General Family Medicine 03/08/23 documented as of this encounter
[2023-07-10] MEDS: ACETAMINOPHEN 325 MG TAB PO PRN (18:40)
--- OUTSIDE RECORDS SUMMARY | 2023-07-10 21:26 | External Medical Summary | Summary of Care ---
Author Name Unknown Organization [facility] [address] [facility] [address] Phone [phone] Care Team Providers Care Antique Furniture Repairer Name Role Phone Mercedes Gorman MD Primary Care Provide r Reason for Visit * Reason Comments Medication Refill Encounter Details Date Type Department Care Team (Late st Contact Info) Description 05/14/2023 Refill Family Medicine [address] [phone] John Blanco MD [address] [place] [address] [place] [address] Encounter for long-term (current) use of [...] as of this encounter (statuses as of 05/22/2023) Medications Medication Sig Dispensed Refills Start Date [...] Tablet 1 02/05/2023 02/05/20 24 Active Nystatin [id number] UNIT/ML Mouth/Throat SuspensionIndicatio ns:Thrush Swish and swallow [...] as of this encounter (statuses as of 05/22/2023) Active Problems Problem Noted Date Diagnosed Date Major depressive disorder, recurrent, moderate 0 04/03/2023 Last Assessment & Plan: Mood stable on current dose celexa Other persistent atrial fibrillation 04/03/2023 Last Assessment & Plan: Rate controlled Continue coumadin Atherosclerosis of qawalangin co ronary artery without angina pectoris 04/03/2023 [...] IM/IV Chest Xray Additional Comments: Followed by banana carrier - [facility]. Rashel Sales [facility] [...] in the Comments) Remote Patient Monitoring Vendor: [facility] Device(s): Connected Scale Self - Management [...] & Plan: Chronic AC coumadin Atherosclerosis of qawalangin co ronary artery of qawalangin heart without angina pectoris documented as of this encounter (statuses as of 05/22/2023) Resolved Problems Problem Noted Date Diagnosed Date [...] Overview: Per CKD protocol #1 [employer] Other*[id number] 06/02/2010 04/18/2011 Overview: PROJECT: #[id number], SPONSOR: Aileen, PI: Adolfo De Jesus MD [...] can be closed. CONTACT: Roberto Carlos Huertas, Cheese Pancake Roller Type 2 diabetes mellitus wit h hemoglobin [...] as of this encounter (statuses as of 05/22/2023) Immunizations Name Administration Dates Next Due COVID-19 [...] for Moris. The prescription was sent to [facility]. * Telephone Encounter - Zena Suarez OSA - 05/16/2023 2:08 PM EDT Moris calling in regarding pt's medication change. Said he needed to speak to provider in regardsto getting in changed for [facility]. * Telephone Encounter - Mercedes [...] by mouth in the morning. Authorizing Provider: MECREDES GORMAN Refused Prescriptions: Disp Refills Rosuvastatin Calcium 20 MG Oral Tablet (Cr*100 Ta*0 Sig: TAKE ONE TABLET BY MOUTH AT BEDTIME Refused By: HANNY PAK Reason f or Refusal: Dose needs clarification * Telephone Encounter - Karena Samano CPhT - 05/15/2023 11:54 AM EDT pharmacy calling to check on status of rosuvastatin. Caller can be reached at [phone]. Thank you, Karena Samano CphT Wire Loop Machine Operator III [facility]) (formerly [...] agreeable, please route back to me to reimbursement counselor patient on dose decrease Pending Prescriptions: [...] Services ([facility]) (formerly Telepharmacy) 05/15/23 11:11 AM [phone] documented in this encounter Plan of Treatment Upcoming Encounters Date Type Department Care Team (Late st Contact Info) Description 05/23/2023 6:00 AM EDT Anticoagulation Pharmacy Call Center WB [phone] [facility] [place] [address] [address], [facility] 58 60 [facility] [place] [address] 06/04/2023 1:30 PM EDT Office Visit Allergy/Immunology [facility] [address] [place] [address] Macario Pathak MD [address] [place] [address] 06/10/2023 12:20 PM EDT Office Visit Family Medicine [address] [phone] Mercedes Gorman MD [address] [place] [address] [place] [address] 06/11/2023 1:30 PM EDT Scheduled Telephone [facility], [facility] [address] [facility] [place] [address] Vee Santacruz RDN [address] [facility] [place] [address] 06/20/2023 5:30 PM EDT Home Visit [facility], [facility] [address] [place] [address] Valentina Laws, TANISHA [address] [place] [address] 06/21/2023 8:00 AM EDT Laboratory Lab Mobile Phlebotomy [facility] [address] [place] [address] [facility], [facility] Home Draw [address] [place] [address] 06/21/2023 2:30 PM EDT Office Visit Cardiology, [facility] [address] [place] [address] Hadley Molina MD [address] [place] [address] 06/24/2023 11:00 AM EDT Office Visit Hematology/Oncology [facility] [place] 200 [facility] [place] [phone] Bouchra Del Cid CRNP [address] [place] [address] 07/04/2023 2:40 PM EDT Office Visit Nephrology [address] [place] [address] Aliyah Lacey MD 200 [facility] [place] [address] 08/05/2023 1:00 PM EDT Nurse Only Ancillary [address] [place] [address] [place], Nurse [address] [place] [address] 09/20/2023 8:00 AM EDT Laboratory Lab Mobile Phlebotomy [facility] [address] [place] [address] [facility], [facility] Mobile Home Draw [address] [place] [address] 09/24/2023 11:30 AM EDT Office Visit Nephrology, [facility] 200 [facility] [place] [address] Kary Pena PA-C 200 [facility] [place] [address] 12/20/2023 8:00 AM EDT Laboratory Lab Mobile Phlebotomy [facility] [address] [facility] [address] [facility], [facility] Mobile Home Draw [address] [place] [address] 03/27/2024 8:00 AM EST Laboratory Lab Mobile Phlebotomy [facility] [address] [place] [address] [facility], l Mobile Home Draw [address] [place] [address] Scheduled Orders Name Type Priority Associated Diagnoses [...] Additional history exists CKD PHOS USE SMARTSET 54311 03/21/2024 02/0 02/2023, 12/19/2022, 11/28/2022, Additional history exists Albumin/Creatinine Ratio 05/06/20242 024, 12/03/2022, 02/05/2022, Additional history exists CKD HGB USE SMARTSET 42291 05/06/202405/06, 03/06/2023, 03/06/2023, Additional history exists O2 [...] this encounter Medical Devices Implanted Type Area Horticultural Farmer Device Identifier Shelf Expiration Date Model / Serial / Lot [place] S[employer]ocomposite - Sn/A - [id number] Implanted:Qty: 2 on 12/13/2021 by Moris Jimenez DO at OR [facility] Left: Leg Lower [employer] 07/18/2024 [id number] / N/A / [id number] [employer] Bbtrauma Foam Pack - [id number] - [id number] Implanted:Qty: 1 on 12/13/2021 by Moris Jimenez DO at OR [facility] Left: Leg Lower MICHA : TRAUMA 01/15/2022 [id number] / [id number] / [id number] documented as of this encounter Visit Diagnoses [...] Advance Directives occurred with: Patient Care Teams Antique Furniture Repairer Relationship Specialty Start Date End Date Mercedes Gorman MD [address] [place] [address] [place] [address] PCP - General Family Medicine 03/08/23 documented as of this encounter
[2023-07-10] MEDS: WARFARIN SOD 5 MG TAB PO ONE (21:57)
[2023-07-11 06:50] LABS: Hematocrit (blood only) 36.8 % (37.0-47.0); Hemoglobin 11.7 g/dl (12.0-16.0); Mean Corpuscular Hemoglobin 28.3 pg (25.0-34.0); Mean Corpuscular Hgb Conc 31.8 g/dL (32.0-36.0); Mean Corpuscular Volume 89.1 fL (80.0-100.0); Mean Platelet Volume 11.4 fL (9.4-12.4); Platelet Count 103 K/uL (130-400); RDW Coefficient of Variation 15.8 % (11.5-14.5); RDW Standard Deviation 52.1 fL (36.4-46.3); Red Blood Count 4.13 M/uL (4.20-5.40); White Blood Count 6.84 K/ul (4.8-10.8)
[2023-07-11 06:53] LABS: BUN Creatinine Ratio 15.4 (10-20); Creatinine Clr Calc Pharmacy 20.9 ml/min; Est GFR (African American) 26.5 ml/min; Est GFR (Non-African American) 22.9 ml/min; Magnesium 2.7 mg/dl (1.7-2.4); Phosphorus 3.6 mg/dl (2.5-4.9); Potassium 3.8 mmol/L (3.5-5.1)
[2023-07-11 07:06] LABS: INR 3.7 (0.9-1.1); Prothrombin Time 35.6 Seconds (9.0-12.0)
--- NOTE | 2023-07-11 07:45 | Hospitalist Progress Note ---
Date of Service July 11, 2023 Assessment & Plan (1) Acute exacerbation of CHF (congestive heart failure): Plan: History diastolic dysfunction Cardiology consult Re: CHF Strict I/O's, daily weights, CHF education, fluid restriction Cardiology consulted and following - hold lasix and aldactone today as Cr elevated LE improved today VICKY on CKD, creatinine 2.14 - hold diuretics today, re-eval tmrw - cont. to monitor renal function UTI - UA c/w UTI - Ucultx posit for GNB - empiric Rocephin for now SSS/rheumatic heart disease/history of mechanical MVR on Coumadin, INR therapeutic history of Linq insertion hx CAD as per records hypertension, stable hyperlipidemia, on statin Rx hx embolic CVA as per records COPD, not in acute exacerbation DM2 diet-controlled, reasonable control as of recent hemoglobin A1c of 7.3, April 2023 Basal bolus insulin, ISS BG goal 110-1 40, carb count coverage Hypothyroidism, euthyroid as of recent outpatient TSH chronic anemia, hemoglobin at baseline DVT prophylaxis. Coumadin INR goal between 2.5-3.5 Full code Admission and Anticipated Discharge Date Admission Date: July 09, 2023 Subjective Pt seen in follow up of CHF, complex cardiac hx, hx of CKD, now also w/ poss. UTI Currently sitting up in bed in NAD Feeling better today, LE edema improved Denies chest pain However Cr 2.14 - hold lasix today Cardiology consulted and following Review of Systems Review of Systems: All systems reviewed & are unremarkable except as noted in Subjective Physical Exam Physical Exam: GENERAL: WD/WN elderly F in NAD HEENT: NC/AT, EOMI NECK : Supple CHEST : basilar crackles, no wheezing HEART : Irregular ABDOMEN: Some distention, soft, nontender EXTREMITIES : bilateral LE swelling (improved), moves extremities NEUROLOGIC : awake, alert, no facial asymmetry, mild dysarthria (chronic as per patient ), moving extremities SKIN: warm, dry Results & Data Results & Data Vital Signs (Past 12 Hours) Vital Signs Temp Pulse Pulse Resp BP Pulse Ox Pulse Ox 07/11/23 07:32 36.7 C 60 18 114/67 97 07/11/23 02:57 36.5 C 69 23 123/72 95 07/11/23 00:00 95 07/10/23 23:54 72 07/10/23 22:33 37.0 C 75 18 105/61 95 07/10/23 20:20 07/10/23 20:20 37.2 C 80 20 132/67 95 07/10/23 20:00 82 07/10/23 19:57 37.2 C 80 23 132/67 95 O2 Del Method O2 Del Method 07/11/23 07:32 Room Air 07/11/23 02:57 Room Air 07/11/23 00:00 Room Air 07/10/23 23:54 07/10/23 22:33 Room Air 07/10/23 20:20 Room Air 07/10/23 20:20 Room Air 07/10/23 20:00 07/10/23 19:57 Room Air Laboratory Results 07/11/23 07/11/23 07/10/23 Range/Units 07:08 06:03 20:24 WBC 6.84 (4.8-10.8) K/ul RBC 4.13 L (4.20-5.40) M/uL Hgb 11.7 L (12.0-16.0) g/dl Hct 36.8 L (37.0-47.0) % MCV 89.1 (80.0-100.0) fL MCH 28.3 (25.0-34.0) pg MCHC 31.8 L (32.0-36.0) g/dL RDW Std Deviation 52.1 H (36.4-46.3) fL RDW Coeff of Courtney 15.8 H (11.5-14.5) % Plt Count 103 L (130-400) K/uL MPV 11.4 (9.4-12.4) fL PT 35.6 H (9.0-12.0) Seconds INR 3.7 H (0.9-1.1) Sodium 135 L (136-145) mmol/L Potassium 3.8 (3.5-5.1) mmol/L Chloride 98 (98-107) mmol/L Carbon Dioxide 31 (21-32) mmol/L Anion Gap 6 (3-11) BUN 33 H (6-23) mg/dl Creatinine 2.14 H D (0.6-1.2) mg/dl Est Cr Clr Drug Dosing 20.9 ml/min Est GFR ( Amer) 26.5 ml/min Est GFR (Non-Af Amer) 22.9 ml/min BUN/Creatinine Ratio 15.4 (10-20) Glucose 100 H (70-99(Fasting)) mg/dl POC Glucose 100 H 177 H (70-99) mg/dl Calcium 10.0 (8.6-10.3) mg/dl Phosphorus 3.6 (2.5-4.9) mg/dl Magnesium 2.7 H (1.7-2.4) mg/dl 07/10/23 07/10/23 07/10/23 Range/Units 18:00 12:39 08:03 WBC (4.8-10.8) K/ul RBC (4.20-5.40) M/uL Hgb (12.0-16.0) g/dl Hct (37.0-47.0) % MCV (80.0-100.0) fL MCH (25.0-34.0) pg MCHC (32.0-36.0) g/dL RDW Std Deviation (36.4-46.3) fL RDW Coeff of Courtney (11.5-14.5) % Plt Count (130-400) K/uL MPV (9.4-12.4) fL PT (9.0-12.0) Seconds INR (0.9-1.1) Sodium (136-145) mmol/L Potassium (3.5-5.1) mmol/L Chloride (98-107) mmol/L Carbon Dioxide (21-32) mmol/L Anion Gap (3-11) BUN (6-23) mg/dl Creatinine (0.6-1.2) mg/dl Est Cr Clr Drug Dosing ml/min Est GFR ( Amer) ml/min Est GFR (Non-Af Amer) ml/min BUN/Creatinine Ratio (10-20) Glucose (70-99(Fasting)) mg/dl POC Glucose 99 119 H 83 (70-99) mg/dl Calcium (8.6-10.3) mg/dl Phosphorus (2.5-4.9) mg/dl Magnesium (1.7-2.4) mg/dl Medications Administered Current Inpatient Medications Acetaminophen (Acetaminophen 325 Mg Tab) 650 mg PO QID PRN PRN Reason: pain/fever Stop: 08/09/23 00:05 Last Admin: 07/10/23 18:40 Dose: 650 mg Albuterol (Albut/Ipratrop 3mg/0.5mg Neb 3 Ml Vial) 3 ml INH QID PRN; Protocol PRN Reason: shortness of breath or wheezing Stop: 08/09/23 01:24 Azelastine HCl (Azelastine Hcl 0.1% Nasal 200 Sprays/27,400 Mcg Btl) 2 sprays NA [facility] PRISCILA Stop: 08/09/23 08:59 Last Admin: 07/10/23 21:58 Dose: 2 sprays Buprenorphine HCl (Buprenorphine 5 Mcg/Hr Tdsy) 1 patch TD Q7D PRISCILA Stop: 08/09/23 08:59 Last Admin: 07/10/23 10:30 Dose: Not Given Citalopram Hydrobromide (Citalopram 20 Mg Tab) 10 mg PO DAILY PRISCILA Stop: 08/09/23 08:59 Last Admin: 07/10/23 08:59 Dose: 10 mg Dextrose (Dextrose 50% 50 Ml Syringe) 25 - 50 ml IV UD PRN; Protocol PRN Reason: Hypoglycemia Protocol Stop: 08/09/23 01:24 Folic Acid (Folic Acid 1 Mg Tab) 1 mg PO QAM [facility] Stop: 08/09/23 08:59 Last Admin: 07/10/23 08:59 Dose: 1 mg Glucagon (Glucagon For Inj 1 Mg Vial) 1 mg SQ UD PRN; Protocol PRN Reason: Hypoglycemia Protocol Stop: 08/09/23 01:24 Glucose (Glucose 40% Gel 15 Gm Tube) 15 - 30 gm PO UD PRN; Protocol PRN Reason: Hypoglycemia Protocol Stop: 08/09/23 01:24 Glucose (Glucose 10 Tab/Tube) 4 - 8 tab PO UD PRN; Protocol PRN Reason: Hypoglycemia Treatment Stop: 08/09/23 01:24 Ceftriaxone Sodium (Rocephin) 1,000 mg in 50 mls @ 100 mls/hr IV Q24H [facility] Stop: 07/15/23 10:59 Last Infusion: 07/10/23 11:46 Dose: Infused Insulin Aspart (Insulin Aspart Per Unit Charge) 0 units SC ACHS [facility] Stop: 08/09/23 01:24 Last Admin: 07/10/23 21:58 Dose: 2 units Levothyroxine Sodium (Levothyroxine Sodium 100 Mcg Tablet) 100 mcg PO DAILYBB [facility] Stop: 08/09/23 06:29 Last Admin: 07/11/23 06:44 Dose: 100 mcg Metoclopramide HCl (Metoclopramide Hcl 10 Mg Tablet) 10 mg PO DAILYBB [facility] Stop: 08/09/23 06:29 Last Admin: 07/11/23 06:37 Dose: Not Given Metoprolol Tartrate (Metoprolol Tartrate 25 Mg Tab) 25 mg PO BID [facility] Stop: 08/09/23 08:59 Last Admin: 07/10/23 22:31 Dose: 25 mg Miscellaneous (Carbohydrates For Hypoglycemia ) 15 - 30 gm PO UD PRN PRN Reason: Hypoglycemia Protocol Stop: 08/09/23 01:24 Miscellaneous (Remove & Waste Butrans Patch 1 Ea Ea) 1 each N/A Q7D [facility] Stop: 08/09/23 08:59 Last Admin: 07/10/23 10:30 Dose: Not Given Miscellaneous (Check Buprenorphine Patch) 1 each N/A QS [facility] Stop: 08/09/23 07:59 Last Admin: 07/11/23 00:15 Dose: 1 each Nitroglycerin (Nitroglycerin Sl 0.4 Mg/Tab Tab) 0.4 mg SL Q5M PRN PRN Reason: Chest Pain Stop: 08/09/23 01:24 Ondansetron HCl (Ondansetron Inj 2 Mg/Ml 2 Ml Vial) 4 mg IV Q6H PRN PRN Reason: Nausea And Vomiting Stop: 08/09/23 00:04 Pantoprazole Sodium (Pantoprazole 40 Mg Tab) 40 mg PO QAM [facility] Stop: 08/09/23 08:59 Last Admin: 07/10/23 08:59 Dose: 40 mg Ropinirole HCl (Ropinirole Hcl 2 Mg Tablet) 2 mg PO TID [facility] Stop: 08/09/23 08:59 Last Admin: 07/10/23 22:32 Dose: 2 mg Rosuvastatin Calcium (Rosuvastatin Calcium 20 Mg Tab) 20 mg PO QAM [facility] Stop: 08/09/23 08:59 Last Admin: 07/10/23 08:58 Dose: 20 mg Sucralfate (Sucralfate 1 Gm/10 Ml Udc) 1 gm PO QID PRN PRN Reason: NEEDED Stop: 08/09/23 01:24 Tramadol HCl (Tramadol Hcl 50 Mg Tablet) 50 mg PO BID PRN PRN Reason: Pain Stop: 08/09/23 01:24 Last Admin: 07/10/23 22:09 Dose: 50 mg Warfarin Sodium (Warfarin Sod 5 Mg Tab) 5 mg PO DAILY@1600 PRISCILA Stop: 08/10/23 15:59 (1) Acute exacerbation of CHF (congestive heart failure) Heart failure type: diastolic Qualified Code(s): I50.33 - Acute on chronic diastolic (congestive) heart failure
--- NOTE | 2023-07-11 09:10 | Cardiology Progress Note ---
Date of Service July 11, 2023 Assessment & Plan (1) Acute exacerbation of CHF (congestive heart failure): (2) Rheumatic heart disease: (3) H/O mitral valve replacement with mechanical valve: (4) Permanent atrial fibrillation: Plan Plan: -Known chronic diastolic HF. Complicated by CKD. Patient has been compliant with all medications and therapies. -Precipitating factors likely her recent decline in renal function, discontinuation of her Metolazone and also increased free water intake. -Patient received a one time dose of IV Lasix 60mg on night of admission as well as a repeat dose yesterday. Cr slightly worse today. Will hold Lasix today with close monitoring of renal function and electrolytes. goal Serum K > 4.0 and serum Mag > 2.0. Reasses fluid status in the AM as well as labs. -CHF teaching -Appreciate nephrology input on diuretic management and goals. -Continue metoprolol tartrate as per current regimen. -Continue to hold spironolactone. -Will Obtain echocardiogram today to assess overall structure/function/progression of valvular disease. Known severe TR. -Patient is to be on chronic warfarin therapy with close monitoring of her INR. Currently 3.7, reassess in the am. (Goal INR in the setting of a mechanical valve 2.5-3.5) Case has been discussed with Dr. Salcido. Further recommendations regarding plan of care as per his assessment. I spent a total of 30 minutes on the date of service in preparation, delivery, documentation of the care provided to the patient excluding any time spent in the performance of separately billed services. SO[facility] Admission and Anticipated Discharge Date Admission Date: July 09, 2023 Supervising Physician Co-Signing Physician Notes I have personally performed a history and physical examination on the patient. I have reviewed the advance practitioner's documentation, and I agree with, and take responsibility for the plan of care. 67-year-old female admitted with acute on chronic heart failure with preserved ejection fraction. Remote mitral valve replacement with mechanical MVR 1993 and chronic rate controlled atrial fibrillation. INR mildly supratherapeutic today, 3.7. Heart failure exacerbation precipitated by increase in fluid intake (fluid restriction increased from 2 to 3 L) and recent discontinuation of metolazone. Creatinine trending upward today to 2.14 (baseline 1.6-1.8). Hold IV Lasix today with repeat basic metabolic panel in AM. Continue to hold Aldactone as well. Monitor daily weight, and fluid balance. Continue rate control strategy with metoprolol tartrate and chronic anticoagulation with warfarin. Consider holding warfarin tomorrow pending review of INR. I spent a total of 30 minutes on the date of service in preparation, delivery, and documentation of the care provided to this patient, excluding any time spent in the performance of separately billed services. Subjective 07/11/2023: Patient seen and examined in follow up today. Feeling ok from a cardiac perspective. Denies chest pain, pressure, palpitations. Continues to report feeling "full". No changes to her breathing, remains on O2 via nasal cannula. +edema. Labs, vitals, diagnostics, telemetry and documentation reviewed. Telemetry reviewed showing A-fib, rates 50-80's. No acute events overnight. Cr. today 2.14 Review of Systems Review of Systems: All systems reviewed & are unremarkable except as noted in HPI & below Physical Exam Constitutional: well developed and well nourished; no acute distress Neck: normal visual inspection and trachea midline Respiratory: normal respiratory effort Auscultation: + diminished lung sounds (bilateral bases ); no crackles, no rales, no rhonchi and no wheezes Cardiovascular: Rate/Rhythm: regular rate, + bradycardic and + irregularly irregular Heart Sounds: normal S1, normal S2 and + click (hx of mechanical valve ) Vessels: dorsalis pedis pulses present; no JVD Extremities: + edema (+1 BLE) Skin: no rashes, warm and dry Psychiatric: A+Ox3, euthymic affect Results & Data Vital Signs (Past 12 Hours) Vital Signs Temp Pulse Pulse Resp BP Pulse Ox Pulse Ox 07/11/23 07:32 36.7 C 60 18 114/67 97 07/11/23 02:57 36.5 C 69 23 123/72 95 07/11/23 00:00 95 07/10/23 23:54 72 07/10/23 22:33 37.0 C 75 18 105/61 95 O2 Del Method O2 Del Method 07/11/23 07:32 Room Air 07/11/23 02:57 Room Air 07/11/23 00:00 Room Air 07/10/23 23:54 07/10/23 22:33 Room Air Laboratory Results Coagulation 07/11/23 Range/Units 06:03 PT 35.6 H (9.0-12.0) Seconds CBC 07/11/23 Range/Units 06:03 WBC 6.84 (4.8-10.8) K/ul RBC 4.13 L (4.20-5.40) M/uL Hgb 11.7 L (12.0-16.0) g/dl Hct 36.8 L (37.0-47.0) % Plt Count 103 L (130-400) K/uL Comprehensive Metabolic Panel 07/11/23 Range/Units 06:03 Sodium 135 L (136-145) mmol/L Potassium 3.8 (3.5-5.1) mmol/L Chloride 98 (98-107) mmol/L Carbon Dioxide 31 (21-32) mmol/L BUN 33 H (6-23) mg/dl Creatinine 2.14 H D (0.6-1.2) mg/dl Glucose 100 H (70-99(Fasting)) mg/dl Calcium 10.0 (8.6-10.3) mg/dl Intake and Output 07/10/23 07/11/23 07/11/23 22:59 06:59 14:59 Intake Total 240 / 290 50 / 50 Output Total 900 / 2125 225 / 2125 Balance -660 / -1835 -225 / -1835 49 / 49 Intake: IV 50 / 50 cefTRIAXone SODIUM 1,000 mg In 50 / 50 50 ml @ 100 mls/hr IV Q24H [facility] Rx#:[id number] Oral 240 / 240 Output: Urine 900 / 1900 Urine Amount (Catheter) 225 / 225 External 225 / 225 # Bowel Movements Other: Weight 65 kg 64.9 kg Weight Measurement Method Standing Scale Standing Scale (1) Acute exacerbation of CHF (congestive heart failure) Heart failure type: diastolic Qualified Code(s): I50.33 - Acute on chronic diastolic (congestive) heart failure
[2023-07-11] MEDS: WARFARIN SOD 5 MG TAB PO SCH (16:24)
[2023-07-12 06:34] LABS: Hematocrit (blood only) 36.3 % (37.0-47.0); Hemoglobin 11.6 g/dl (12.0-16.0); Mean Corpuscular Hemoglobin 28.6 pg (25.0-34.0); Mean Corpuscular Volume 89.6 fL (80.0-100.0); Mean Platelet Volume 11.7 fL (9.4-12.4); Platelet Count 107 K/uL (130-400); RDW Coefficient of Variation 15.5 % (11.5-14.5); RDW Standard Deviation 51.8 fL (36.4-46.3); Red Blood Count 4.05 M/uL (4.20-5.40); White Blood Count 6.12 K/ul (4.8-10.8)
[2023-07-12 06:44] LABS: BUN Creatinine Ratio 15.3 (10-20); Calcium 9.8 mg/dl (8.6-10.3); Creatinine Clr Calc Pharmacy 22.8 ml/min; Est GFR (African American) 29.5 ml/min; Est GFR (Non-African American) 25.5 ml/min; Magnesium 2.7 mg/dl (1.7-2.4); Phosphorus 3.6 mg/dl (2.5-4.9); Potassium 3.8 mmol/L (3.5-5.1)
[2023-07-12 07:01] LABS: Prothrombin Time 38.4 Seconds (9.0-12.0)
--- NOTE | 2023-07-12 07:57 | Hospitalist Progress Note ---
Date of Service July 12, 2023 Assessment & Plan (1) Acute exacerbation of CHF (congestive heart failure): Plan: History diastolic dysfunction Cardiology consult Re: CHF Strict I/O's, daily weights, CHF education, fluid restriction Cardiology consulted and following - hold lasix and aldactone today as Cr still elevated Switch from metoprolol tartrate to succinate LE improved VICKY on CKD - creatinine 2.14 yesterday with only slight improvement today - hold diuretics today, re-eval tmrw - cont. to monitor renal function UTI - UA c/w UTI - Ucultx posit for Klebsiella - empiric Rocephin for now SSS/rheumatic heart disease/history of mechanical MVR on Coumadin, INR therapeutic / supratherap., hold warfarin history of Linq insertion hx CAD as per records hypertension, stable hyperlipidemia, on statin Rx hx embolic CVA as per records COPD, not in acute exacerbation DM2 diet-controlled, reasonable control as of recent hemoglobin A1c of 7.3, April 2023 Basal bolus insulin, ISS BG goal 110-1 40, carb count coverage Hypothyroidism, euthyroid as of recent outpatient TSH chronic anemia, hemoglobin at baseline DVT prophylaxis. Coumadin INR goal between 2.5-3.5 Full code Admission and Anticipated Discharge Date Admission Date: July 09, 2023 Subjective Pt seen in follow up of CHF, complex cardiac hx, hx of CKD, now also w/ UTI Currently sitting up in bed in NAD Feeling better overall, LE edema improved Denies chest pain Cr 2.14 yesterday only slightly improved today- cont. to hold lasix today Cardiology consulted and following Review of Systems Review of Systems: All systems reviewed & are unremarkable except as noted in Subjective Physical Exam Physical Exam: GENERAL: WD/WN elderly F in NAD HEENT: NC/AT, EOMI NECK : Supple CHEST : basilar crackles, no wheezing HEART : Irregular ABDOMEN: Some distention, soft, nontender EXTREMITIES : bilateral LE swelling (improved), moves extremities NEUROLOGIC : awake, alert, no facial asymmetry, mild dysarthria (chronic as per patient ), moving extremities SKIN: warm, dry Results & Data Results & Data Vital Signs (Past 12 Hours) Vital Signs Temp Pulse Resp BP Pulse Ox O2 Del Method O2 Flow Rate 07/12/23 07:06 36.7 C 56 L 19 124/70 100 Nasal Cannula 3.5 07/12/23 03:00 36.4 C L 56 L 18 120/50 L 100 Nasal Cannula 2 07/11/23 22:45 36.7 C 59 L 20 109/63 100 Nasal Cannula 2 07/11/23 21:19 Room Air Laboratory Results 07/12/23 07/12/23 07/11/23 Range/Units 07:05 05:47 20:09 WBC 6.12 (4.8-10.8) K/ul RBC 4.05 L (4.20-5.40) M/uL Hgb 11.6 L (12.0-16.0) g/dl Hct 36.3 L (37.0-47.0) % MCV 89.6 (80.0-100.0) fL MCH 28.6 (25.0-34.0) pg MCHC 32.0 (32.0-36.0) g/dL RDW Std Deviation 51.8 H (36.4-46.3) fL RDW Coeff of Courtney 15.5 H (11.5-14.5) % Plt Count 107 L (130-400) K/uL MPV 11.7 (9.4-12.4) fL PT 38.4 H (9.0-12.0) Seconds INR 4.0 H (0.9-1.1) Sodium 134 L (136-145) mmol/L Potassium 3.8 (3.5-5.1) mmol/L Chloride 98 (98-107) mmol/L Carbon Dioxide 30 (21-32) mmol/L Anion Gap 6 (3-11) BUN 30 H (6-23) mg/dl Creatinine 1.96 H (0.6-1.2) mg/dl Est Cr Clr Drug Dosing 22.8 ml/min Est GFR ( Amer) 29.5 ml/min Est GFR (Non-Af Amer) 25.5 ml/min BUN/Creatinine Ratio 15.3 (10-20) Glucose 90 (70-99(Fasting)) mg/dl POC Glucose 93 141 H (70-99) mg/dl Calcium 9.8 (8.6-10.3) mg/dl Phosphorus 3.6 (2.5-4.9) mg/dl Magnesium 2.7 H (1.7-2.4) mg/dl 07/11/23 07/11/23 Range/Units 16:10 10:51 WBC (4.8-10.8) K/ul RBC (4.20-5.40) M/uL Hgb (12.0-16.0) g/dl Hct (37.0-47.0) % MCV (80.0-100.0) fL MCH (25.0-34.0) pg MCHC (32.0-36.0) g/dL RDW Std Deviation (36.4-46.3) fL RDW Coeff of Courtney (11.5-14.5) % Plt Count (130-400) K/uL MPV (9.4-12.4) fL PT (9.0-12.0) Seconds INR (0.9-1.1) Sodium (136-145) mmol/L Potassium (3.5-5.1) mmol/L Chloride (98-107) mmol/L Carbon Dioxide (21-32) mmol/L Anion Gap (3-11) BUN (6-23) mg/dl Creatinine (0.6-1.2) mg/dl Est Cr Clr Drug Dosing ml/min Est GFR ( Amer) ml/min Est GFR (Non-Af Amer) ml/min BUN/Creatinine Ratio (10-20) Glucose (70-99(Fasting)) mg/dl POC Glucose 95 126 H (70-99) mg/dl Calcium (8.6-10.3) mg/dl Phosphorus (2.5-4.9) mg/dl Magnesium (1.7-2.4) mg/dl Medications Administered Current Inpatient Medications Acetaminophen (Acetaminophen 325 Mg Tab) 650 mg PO QID PRN PRN Reason: pain/fever Stop: 08/09/23 00:05 Last Admin: 07/11/23 16:23 Dose: 650 mg Albuterol (Albut/Ipratrop 3mg/0.5mg Neb 3 Ml Vial) 3 ml INH QID PRN; Protocol PRN Reason: shortness of breath or wheezing Stop: 08/09/23 01:24 Azelastine HCl (Azelastine Hcl 0.1% Nasal 200 Sprays/27,400 Mcg Btl) 2 sprays NA [facility] Stop: 08/09/23 08:59 Last Admin: 07/11/23 20:09 Dose: 2 sprays Buprenorphine HCl (Buprenorphine 5 Mcg/Hr Tdsy) 1 patch TD Q7D [facility] Stop: 08/09/23 08:59 Last Admin: 07/10/23 10:30 Dose: Not Given Citalopram Hydrobromide (Citalopram 20 Mg Tab) 10 mg PO DAILY [facility] Stop: 08/09/23 08:59 Last Admin: 07/11/23 08:14 Dose: 10 mg Dextrose (Dextrose 50% 50 Ml Syringe) 25 - 50 ml IV UD PRN; Protocol PRN Reason: Hypoglycemia Protocol Stop: 08/09/23 01:24 Folic Acid (Folic Acid 1 Mg Tab) 1 mg PO QAM [facility] Stop: 08/09/23 08:59 Last Admin: 07/11/23 08:15 Dose: 1 mg Glucagon (Glucagon For Inj 1 Mg Vial) 1 mg SQ UD PRN; Protocol PRN Reason: Hypoglycemia Protocol Stop: 08/09/23 01:24 Glucose (Glucose 40% Gel 15 Gm Tube) 15 - 30 gm PO UD PRN; Protocol PRN Reason: Hypoglycemia Protocol Stop: 08/09/23 01:24 Glucose (Glucose 10 Tab/Tube) 4 - 8 tab PO UD PRN; Protocol PRN Reason: Hypoglycemia Treatment Stop: 08/09/23 01:24 Ceftriaxone Sodium (Rocephin) 1,000 mg in 50 mls @ 100 mls/hr IV Q24H [facility] Stop: 07/15/23 10:59 Last Infusion: 07/11/23 11:50 Dose: Infused Insulin Aspart (Insulin Aspart Per Unit Charge) 0 units SC ACHS [facility] Stop: 08/09/23 01:24 Last Admin: 07/11/23 20:25 Dose: 1 units Levothyroxine Sodium (Levothyroxine Sodium 100 Mcg Tablet) 100 mcg PO DAILYBB [facility] Stop: 08/09/23 06:29 Last Admin: 07/12/23 05:38 Dose: 100 mcg Metoclopramide HCl (Metoclopramide Hcl 10 Mg Tablet) 10 mg PO DAILYBB [facility] Stop: 08/09/23 06:29 Last Admin: 07/12/23 05:41 Dose: Not Given Metoprolol Tartrate (Metoprolol Tartrate 25 Mg Tab) 25 mg PO BID [facility] Stop: 08/09/23 08:59 Last Admin: 07/11/23 20:11 Dose: 25 mg Miscellaneous (Carbohydrates For Hypoglycemia ) 15 - 30 gm PO UD PRN PRN Reason: Hypoglycemia Protocol Stop: 08/09/23 01:24 Miscellaneous (Remove & Waste Butrans Patch 1 Ea Ea) 1 each N/A Q7D [facility] Stop: 08/09/23 08:59 Last Admin: 07/10/23 10:30 Dose: Not Given Miscellaneous (Check Buprenorphine Patch) 1 each N/A QS [facility] Stop: 08/09/23 07:59 Last Admin: 07/12/23 00:50 Dose: 1 each Nitroglycerin (Nitroglycerin Sl 0.4 Mg/Tab Tab) 0.4 mg SL Q5M PRN PRN Reason: Chest Pain Stop: 08/09/23 01:24 Ondansetron HCl (Ondansetron Inj 2 Mg/Ml 2 Ml Vial) 4 mg IV Q6H PRN PRN Reason: Nausea And Vomiting Stop: 08/09/23 00:04 Pantoprazole Sodium (Pantoprazole 40 Mg Tab) 40 mg PO QAM [facility] Stop: 08/09/23 08:59 Last Admin: 07/11/23 08:15 Dose: 40 mg Ropinirole HCl (Ropinirole Hcl 2 Mg Tablet) 2 mg PO TID [facility] Stop: 08/09/23 08:59 Last Admin: 07/11/23 20:10 Dose: 2 mg Rosuvastatin Calcium (Rosuvastatin Calcium 20 Mg Tab) 20 mg PO QAM [facility] Stop: 08/09/23 08:59 Last Admin: 07/11/23 08:16 Dose: 20 mg Sucralfate (Sucralfate 1 Gm/10 Ml Udc) 1 gm PO QID PRN PRN Reason: NEEDED Stop: 08/09/23 01:24 Tramadol HCl (Tramadol Hcl 50 Mg Tablet) 50 mg PO BID PRN PRN Reason: Pain Stop: 08/09/23 01:24 Last Admin: 07/11/23 20:27 Dose: 50 mg Warfarin Sodium (Warfarin Sod 5 Mg Tab) 5 mg PO DAILY@1600 [facility] Stop: 08/10/23 15:59 Last Admin: 07/11/23 16:24 Dose: Not Given (1) Acute exacerbation of CHF (congestive heart failure) Heart failure type: diastolic Qualified Code(s): I50.33 - Acute on chronic diastolic (congestive) heart failure
--- NOTE | 2023-07-12 09:00 | Cardiology Progress Note ---
Date of Service July 12, 2023 Assessment & Plan (1) Acute exacerbation of CHF (congestive heart failure): (2) Rheumatic heart disease: (3) H/O mitral valve replacement with mechanical valve: (4) Permanent atrial fibrillation: Plan Plan: -Known chronic diastolic HF. Complicated by CKD. Patient has been compliant with all medications and therapies. -Precipitating factors likely her recent decline in renal function, discontinuation of her Metolazone and also increased free water intake. -Patient received a one time dose of IV Lasix 60mg on night of admission as well as a repeat dose yesterday. Cr slightly worse today. Will hold Lasix today with close monitoring of renal function and electrolytes. goal Serum K > 4.0 and serum Mag > 2.0. Reasses fluid status in the AM as well as labs. -CHF teaching -Appreciate nephrology input on diuretic management and goals. -Continue metoprolol tartrate as per current regimen. -Continue to hold spironolactone. -Will Obtain echocardiogram today to assess overall structure/function/progression of valvular disease. Known severe TR. -Patient is to be on chronic warfarin therapy with close monitoring of her INR. Currently 3.7, reassess in the am. (Goal INR in the setting of a mechanical valve 2.5-3.5) Case has been discussed with Dr. Salcido. Further recommendations regarding plan of care as per his assessment. I spent a total of 30 minutes on the date of service in preparation, delivery, documentation of the care provided to the patient excluding any time spent in the performance of separately billed services. SOFI Chapa [facility] Admission and Anticipated Discharge Date Admission Date: July 09, 2023 Supervising Physician Co-Signing Physician Notes Attending Staff: Pt seen and evaluated with AP Staff Concur with observations and plans 67 yo woman presenting with dyspnea and weight gain Rx with Zaroxolyn - VICKY on CKD Zaroxolyn stopped Increased PO intake of fluids Dx: Acute on chronic diastolic heart failure Med HX * Rheumatic Heart Disease * S/P MVR (Mechanical) 1993 * HFpEF * Afib * IN * TIA * CKD * Hyperlipidemia * DMII * Iron Deficiency Anemia Plans: * Creat improving * Diuretics held * Consider resuming Lasix on 07/13/2023 - Lasix 200 IV X 1 * INR 4 * Coumadin held; indication mechanical MV - (Goal INR 2.5-3.5) * Check INR QAM * + Afib - rate controlled - 58 BPM * SBP 102 mmHg * STOP Lopressor 25 mg po BID * START Toprol XL 50 mg po per day * + UTI - on ABX * Jardiance discontinued * When creat stable, consider restarting Aldactone * ECHO reviewed - LVEF 55%, MV functioning well. Severe BiAtrial Enlargement - AI(mild); TR (severe). * Wean FIO2 * Consider referral to valve clinic for potential TV clip. Would need RH cath to look for PH. * 50 min spent addressing challenges, educating and advancing daily plan of care. Rafa Walker Subjective 07/12/2023: Patient seen and examined in follow up today. Feeling ok from a cardiac perspective. Denies chest pain, pressure, palpitations. Continues to report feeling "full". No changes to her breathing, remains on O2 via nasal cannula. +edema. Labs, vitals, diagnostics, telemetry and documentation reviewed. Telemetry reviewed showing A-fib, rates 50-80's. No acute events overnight. Cr. today 2.14 INR 4.0 Na 134 Review of Systems Review of Systems: All systems reviewed & are unremarkable except as noted in HPI & below Physical Exam Constitutional: well developed and well nourished; no acute distress Neck: normal visual inspection and trachea midline Respiratory: normal respiratory effort Auscultation: + diminished lung sounds (bilateral bases ); no crackles, no rales, no rhonchi and no wheezes Cardiovascular: Rate/Rhythm: regular rate, + bradycardic and + irregularly irregular Heart Sounds: normal S1, normal S2 and + click (hx of mechanical valve ) Vessels: dorsalis pedis pulses present; no JVD Extremities: + edema (+1 BLE) Skin: no rashes, warm and dry Psychiatric: A+Ox3, euthymic affect Results & Data Vital Signs (Past 12 Hours) Vital Signs Temp Pulse Resp BP Pulse Ox O2 Del Method O2 Flow Rate 07/12/23 07:06 36.7 C 56 L 19 124/70 100 Nasal Cannula 3.5 07/12/23 03:00 36.4 C L 56 L 18 120/50 L 100 Nasal Cannula 2 07/11/23 22:45 36.7 C 59 L 20 109/63 100 Nasal Cannula 2 07/11/23 21:19 Room Air Laboratory Results Coagulation 07/12/23 Range/Units 05:47 PT 38.4 H (9.0-12.0) Seconds CBC 07/12/23 Range/Units 05:47 WBC 6.12 (4.8-10.8) K/ul RBC 4.05 L (4.20-5.40) M/uL Hgb 11.6 L (12.0-16.0) g/dl Hct 36.3 L (37.0-47.0) % Plt Count 107 L (130-400) K/uL Comprehensive Metabolic Panel 07/12/23 Range/Units 05:47 Sodium 134 L (136-145) mmol/L Potassium 3.8 (3.5-5.1) mmol/L Chloride 98 (98-107) mmol/L Carbon Dioxide 30 (21-32) mmol/L BUN 30 H (6-23) mg/dl Creatinine 1.96 H (0.6-1.2) mg/dl Glucose 90 (70-99(Fasting)) mg/dl Calcium 9.8 (8.6-10.3) mg/dl Intake and Output 07/11/23 07/12/23 07/12/23 22:59 06:59 14:59 Intake Total 60 / 860 100 / 860 50 / 50 Output Total 400 / 852 Balance -340 / 8 100 / 8 50 / 50 Intake: IV 50 / 50 cefTRIAXone SODIUM 1,000 mg In 50 / 50 50 ml @ 100 mls/hr IV Q24H [facility] Rx#:[id number] Oral 60 / 810 100 / 810 Output: Urine Amount (Catheter) 400 / 400 External 400 / 400 Other: # Unmeasured Voids 2 Weight 65 kg Medications Administered Current Inpatient Medications Acetaminophen (Acetaminophen 325 Mg Tab) 650 mg PO QID PRN PRN Reason: pain/fever Stop: 08/09/23 00:05 Last Admin: 07/11/23 16:23 Dose: 650 mg Albuterol (Albut/Ipratrop 3mg/0.5mg Neb 3 Ml Vial) 3 ml INH QID PRN; Protocol PRN Reason: shortness of breath or wheezing Stop: 08/09/23 01:24 Azelastine HCl (Azelastine Hcl 0.1% Nasal 200 Sprays/27,400 Mcg Btl) 2 sprays NA AMHS [facility] Stop: 08/09/23 08:59 Last Admin: 07/12/23 08:37 Dose: 2 sprays Buprenorphine HCl (Buprenorphine 5 Mcg/Hr Tdsy) 1 patch TD Q7D [facility] Stop: 08/09/23 08:59 Last Admin: 07/10/23 10:30 Dose: Not Given Citalopram Hydrobromide (Citalopram 20 Mg Tab) 10 mg PO DAILY [facility] Stop: 08/09/23 08:59 Last Admin: 07/12/23 08:35 Dose: 10 mg Dextrose (Dextrose 50% 50 Ml Syringe) 25 - 50 ml IV UD PRN; Protocol PRN Reason: Hypoglycemia Protocol Stop: 08/09/23 01:24 Folic Acid (Folic Acid 1 Mg Tab) 1 mg PO QAM [facility] Stop: 08/09/23 08:59 Last Admin: 07/12/23 08:36 Dose: 1 mg Glucagon (Glucagon For Inj 1 Mg Vial) 1 mg SQ UD PRN; Protocol PRN Reason: Hypoglycemia Protocol Stop: 08/09/23 01:24 Glucose (Glucose 40% Gel 15 Gm Tube) 15 - 30 gm PO UD PRN; Protocol PRN Reason: Hypoglycemia Protocol Stop: 08/09/23 01:24 Glucose (Glucose 10 Tab/Tube) 4 - 8 tab PO UD PRN; Protocol PRN Reason: Hypoglycemia Treatment Stop: 08/09/23 01:24 Ceftriaxone Sodium (Rocephin) 1,000 mg in 50 mls @ 100 mls/hr IV Q24H [facility] Stop: 07/15/23 10:59 Last Infusion: 07/12/23 12:36 Dose: Infused Insulin Aspart (Insulin Aspart Per Unit Charge) 0 units SC ACHS [facility] Stop: 08/09/23 01:24 Last Admin: 07/12/23 11:50 Dose: Not Given Levothyroxine Sodium (Levothyroxine Sodium 100 Mcg Tablet) 100 mcg PO DAILYBB [facility] Stop: 08/09/23 06:29 Last Admin: 07/12/23 05:38 Dose: 100 mcg Metoclopramide HCl (Metoclopramide Hcl 10 Mg Tablet) 10 mg PO DAILYBB [facility] Stop: 08/09/23 06:29 Last Admin: 07/12/23 05:41 Dose: Not Given Metoprolol Tartrate (Metoprolol Tartrate 25 Mg Tab) 25 mg PO BID [facility] Stop: 08/09/23 08:59 Last Admin: 07/12/23 08:36 Dose: 25 mg Miscellaneous (Carbohydrates For Hypoglycemia ) 15 - 30 gm PO UD PRN PRN Reason: Hypoglycemia Protocol Stop: 08/09/23 01:24 Miscellaneous (Remove & Waste Butrans Patch 1 Ea Ea) 1 each N/A Q7D [facility] Stop: 08/09/23 08:59 Last Admin: 07/10/23 10:30 Dose: Not Given Miscellaneous (Check Buprenorphine Patch) 1 each N/A QS [facility] Stop: 08/09/23 07:59 Last Admin: 07/12/23 08:23 Dose: 1 each Nitroglycerin (Nitroglycerin Sl 0.4 Mg/Tab Tab) 0.4 mg SL Q5M PRN PRN Reason: Chest Pain Stop: 08/09/23 01:24 Ondansetron HCl (Ondansetron Inj 2 Mg/Ml 2 Ml Vial) 4 mg IV Q6H PRN PRN Reason: Nausea And Vomiting Stop: 08/09/23 00:04 Pantoprazole Sodium (Pantoprazole 40 Mg Tab) 40 mg PO QAM [facility] Stop: 08/09/23 08:59 Last Admin: 07/12/23 08:36 Dose: 40 mg Ropinirole HCl (Ropinirole Hcl 2 Mg Tablet) 2 mg PO TID [facility] Stop: 08/09/23 08:59 Last Admin: 07/12/23 14:27 Dose: 2 mg Rosuvastatin Calcium (Rosuvastatin Calcium 20 Mg Tab) 20 mg PO QAM [facility] Stop: 08/09/23 08:59 Last Admin: 07/12/23 08:37 Dose: 20 mg Sucralfate (Sucralfate 1 Gm/10 Ml Udc) 1 gm PO QID PRN PRN Reason: NEEDED Stop: 08/09/23 01:24 Tramadol HCl (Tramadol Hcl 50 Mg Tablet) 50 mg PO BID PRN PRN Reason: Pain Stop: 08/09/23 01:24 Last Admin: 07/12/23 08:34 Dose: 50 mg Warfarin Sodium (Warfarin Sod 5 Mg Tab) 5 mg PO DAILY@1600 [facility] Stop: 08/10/23 15:59 Last Admin: 07/11/23 16:24 Dose: Not Given (1) Acute exacerbation of CHF (congestive heart failure) Heart failure type: diastolic Qualified Code(s): I50.33 - Acute on chronic diastolic (congestive) heart failure
[2023-07-13 06:30] LABS: BUN Creatinine Ratio 15.1 (10-20); Calcium 9.9 mg/dl (8.6-10.3); Est GFR (African American) 36.1 ml/min; Est GFR (Non-African American) 31.1 ml/min; Magnesium 2.8 mg/dl (1.7-2.4); Potassium 3.6 mmol/L (3.5-5.1)
[2023-07-13 06:36] LABS: Hematocrit (blood only) 35.7 % (37.0-47.0); Hemoglobin 11.4 g/dl (12.0-16.0); Mean Corpuscular Hemoglobin 28.3 pg (25.0-34.0); Mean Corpuscular Hgb Conc 31.9 g/dL (32.0-36.0); Mean Corpuscular Volume 88.6 fL (80.0-100.0); Mean Platelet Volume 11.5 fL (9.4-12.4); Platelet Count 97 K/uL (130-400); RDW Coefficient of Variation 15.3 % (11.5-14.5); RDW Standard Deviation 49.5 fL (36.4-46.3); Red Blood Count 4.03 M/uL (4.20-5.40)
[2023-07-13 06:46] LABS: INR 2.9 (0.9-1.1); Prothrombin Time 28.7 Seconds (9.0-12.0)
[2023-07-13] MEDS: METOPROLOL SUCC 50MG EXT REL TAB PO SCH (07:59)
--- NOTE | 2023-07-13 11:20 | Hospitalist Progress Note ---
Date of Service July 13, 2023 Assessment & Plan (1) Acute exacerbation of CHF (congestive heart failure): Plan: History diastolic dysfunction Cardiology consult Re: CHF Strict I/O's, daily weights, CHF education, fluid restriction Cardiology consulted and following Switched from metoprolol tartrate to succinate LE improved Cr improved to 1.7 - likely will resume lasix today Echo - LVEF 55 to 60%. LV wall motion is abnormal. Severe biatrial enlargement. Mild aortic regurg. There is a central disc (MedtronicHall type) mechanical prosthesis. There is no mitral valve stenosis. Significant mitral regurg is absent. There is severe tricuspid regurg. Doppler findings do not suggest pulmonary hypertension. * Consider referral to valve clinic for potential TV clip. Would need RH cath to look for PH. * Goal INR - between 2.5-3.5 - resume coumadin VICKY on CKD - creatinine down to 1.66 - held lasix and aldactone - plan to resume today - cont. to monitor renal function - AM BMP ordered UTI - UA c/w UTI - Ucultx posit for Klebsiella - cont. Rocephin for now SSS/rheumatic heart disease/history of mechanical MVR on Coumadin, INR therapeutic / supratherap., hold warfarin history of Linq insertion hx CAD as per records hypertension, stable hyperlipidemia, on statin Rx hx embolic CVA as per records COPD, not in acute exacerbation DM2 diet-controlled, reasonable control as of recent hemoglobin A1c of 7.3, April 2023 Basal bolus insulin, ISS BG goal 110-1 40, carb count coverage Hypothyroidism, euthyroid as of recent outpatient TSH chronic anemia, hemoglobin at baseline DVT prophylaxis. Coumadin INR goal between 2.5-3.5 Full code Admission and Anticipated Discharge Date Admission Date: July 09, 2023 Subjective Pt seen in follow up of CHF, complex cardiac hx, hx of CKD, now also w/ UTI Currently sitting up in chair in NAD Feeling better overall, LE edema improved but currently on suppl. O2 Denies chest pain Cr improved today- plan to resume lasix today Cardiology consulted and following - discussed possible valve repair and pt is agreeable Resume coumadin now - pharmacy contacted Review of Systems Review of Systems: All systems reviewed & are unremarkable except as noted in Subjective Physical Exam Physical Exam: GENERAL: WD/WN elderly F in NAD HEENT: NC/AT, EOMI NECK : Supple CHEST : decreased breath sounds, no wheezing HEART : Irregular, + mechan. click ABDOMEN: Some distention, soft, nontender EXTREMITIES : bilateral LE swelling (improved), moves extremities NEUROLOGIC : awake, alert, no facial asymmetry, mild dysarthria (chronic as per patient ), moving extremities SKIN: warm, dry Results & Data Results & Data Vital Signs (Past 12 Hours) Vital Signs Temp Pulse Resp BP Pulse Ox Pulse Ox O2 Del Method 07/13/23 11:07 36.6 C 56 L 19 126/72 100 Room Air 07/13/23 08:19 Room Air 07/13/23 07:09 36.4 C L 62 19 115/71 93 Room Air 07/13/23 03:50 36.7 C 64 17 118/64 100 Nasal Cannula 07/13/23 00:00 99 07/12/23 23:21 36.8 C 66 17 130/70 99 Nasal Cannula O2 Del Method O2 Flow Rate O2 Flow Rate 07/13/23 11:07 07/13/23 08:19 07/13/23 07:09 07/13/23 03:50 3.5 07/13/23 00:00 Nasal Cannula 3.5 07/12/23 23:21 3.5 Laboratory Results 07/13/23 07/13/23 07/13/23 Range/Units 11:04 07:09 05:37 WBC 5.20 (4.8-10.8) K/ul RBC 4.03 L (4.20-5.40) M/uL Hgb 11.4 L (12.0-16.0) g/dl Hct 35.7 L (37.0-47.0) % MCV 88.6 (80.0-100.0) fL MCH 28.3 (25.0-34.0) pg MCHC 31.9 L (32.0-36.0) g/dL RDW Std Deviation 49.5 H (36.4-46.3) fL RDW Coeff of Courtney 15.3 H (11.5-14.5) % Plt Count 97 L (130-400) K/uL MPV 11.5 (9.4-12.4) fL PT 28.7 H (9.0-12.0) Seconds INR 2.9 H (0.9-1.1) Sodium 134 L (136-145) mmol/L Potassium 3.6 (3.5-5.1) mmol/L Chloride 98 (98-107) mmol/L Carbon Dioxide 32 (21-32) mmol/L Anion Gap 4 (3-11) BUN 25 H (6-23) mg/dl Creatinine 1.66 H D (0.6-1.2) mg/dl Est Cr Clr Drug Dosing 27.0 ml/min Est GFR ( Amer) 36.1 ml/min Est GFR (Non-Af Amer) 31.1 ml/min BUN/Creatinine Ratio 15.1 (10-20) Glucose 120 H (70-99(Fasting)) mg/dl POC Glucose 103 H 105 H (70-99) mg/dl Calcium 9.9 (8.6-10.3) mg/dl Phosphorus 3.0 (2.5-4.9) mg/dl Magnesium 2.8 H (1.7-2.4) mg/dl 07/12/23 07/12/23 07/12/23 Range/Units 20:11 15:54 11:09 WBC (4.8-10.8) K/ul RBC (4.20-5.40) M/uL Hgb (12.0-16.0) g/dl Hct (37.0-47.0) % MCV (80.0-100.0) fL MCH (25.0-34.0) pg MCHC (32.0-36.0) g/dL RDW Std Deviation (36.4-46.3) fL RDW Coeff of Courtney (11.5-14.5) % Plt Count (130-400) K/uL MPV (9.4-12.4) fL PT (9.0-12.0) Seconds INR (0.9-1.1) Sodium (136-145) mmol/L Potassium (3.5-5.1) mmol/L Chloride (98-107) mmol/L Carbon Dioxide (21-32) mmol/L Anion Gap (3-11) BUN (6-23) mg/dl Creatinine (0.6-1.2) mg/dl Est Cr Clr Drug Dosing ml/min Est GFR ( Amer) ml/min Est GFR (Non-Af Amer) ml/min BUN/Creatinine Ratio (10-20) Glucose (70-99(Fasting)) mg/dl POC Glucose 122 H 110 H 104 H (70-99) mg/dl Calcium (8.6-10.3) mg/dl Phosphorus (2.5-4.9) mg/dl Magnesium (1.7-2.4) mg/dl Medications Administered Current Inpatient Medications Acetaminophen (Acetaminophen 325 Mg Tab) 650 mg PO QID PRN PRN Reason: pain/fever Stop: 08/09/23 00:05 Last Admin: 07/11/23 16:23 Dose: 650 mg Albuterol (Albut/Ipratrop 3mg/0.5mg Neb 3 Ml Vial) 3 ml INH QID PRN; Protocol PRN Reason: shortness of breath or wheezing Stop: 08/09/23 01:24 Azelastine HCl (Azelastine Hcl 0.1% Nasal 200 Sprays/27,400 Mcg Btl) 2 sprays NA [facility] Stop: 08/09/23 08:59 Last Admin: 07/13/23 08:01 Dose: 2 sprays Buprenorphine HCl (Buprenorphine 5 Mcg/Hr Tdsy) 1 patch TD Q7D [facility] Stop: 08/09/23 08:59 Last Admin: 07/13/23 08:02 Dose: 1 patch Citalopram Hydrobromide (Citalopram 20 Mg Tab) 10 mg PO DAILY [facility] Stop: 08/09/23 08:59 Last Admin: 07/13/23 07:59 Dose: 10 mg Dextrose (Dextrose 50% 50 Ml Syringe) 25 - 50 ml IV UD PRN; Protocol PRN Reason: Hypoglycemia Protocol Stop: 08/09/23 01:24 Folic Acid (Folic Acid 1 Mg Tab) 1 mg PO QAM [facility] Stop: 08/09/23 08:59 Last Admin: 07/13/23 08:00 Dose: 1 mg Glucagon (Glucagon For Inj 1 Mg Vial) 1 mg SQ UD PRN; Protocol PRN Reason: Hypoglycemia Protocol Stop: 08/09/23 01:24 Glucose (Glucose 40% Gel 15 Gm Tube) 15 - 30 gm PO UD PRN; Protocol PRN Reason: Hypoglycemia Protocol Stop: 08/09/23 01:24 Glucose (Glucose 10 Tab/Tube) 4 - 8 tab PO UD PRN; Protocol PRN Reason: Hypoglycemia Treatment Stop: 08/09/23 01:24 Ceftriaxone Sodium (Rocephin) 1,000 mg in 50 mls @ 100 mls/hr IV Q24H [facility] Stop: 07/15/23 10:59 Last Infusion: 07/12/23 12:36 Dose: Infused Insulin Aspart (Insulin Aspart Per Unit Charge) 0 units SC ACHS [facility] Stop: 08/09/23 01:24 Last Admin: 07/13/23 07:56 Dose: 2 units Levothyroxine Sodium ([facility]othyroxine Sodium 100 Mcg Tablet) [facility] 08/09/23 06:29 Last Admin: 07/13/23 05:38 Dose: 100 mcg Metoclopramide HCl (Metoclopramide Hcl 10 Mg Tablet) [facility] Stop: 08/09/23 06:29 Last Admin: 07/13/23 05:38 Dose: Not Given Metoprolol Succinate (Metoprolol Succ 50mg Ext Rel Tab) 50 mg PO QAM [facility] Stop: 08/12/23 08:59 Last Admin: 07/13/23 07:59 Dose: 50 mg Miscellaneous (Carbohydrates For Hypoglycemia ) 15 - 30 gm PO UD PRN PRN Reason: Hypoglycemia Protocol Stop: 08/09/23 01:24 Miscellaneous (Remove & Waste Butrans Patch 1 Ea Ea) 1 each N/A Q7D [facility] Stop: 08/09/23 08:59 Last Admin: 07/10/23 10:30 Dose: Not Given Miscellaneous (Check Buprenorphine Patch) 1 each N/A QS [facility] Stop: 08/09/23 07:59 Last Admin: 07/13/23 08:01 Dose: 1 each Nitroglycerin (Nitroglycerin Sl 0.4 Mg/Tab Tab) 0.4 mg SL Q5M PRN PRN Reason: Chest Pain Stop: 08/09/23 01:24 Ondansetron HCl (Ondansetron Inj 2 Mg/Ml 2 Ml Vial) 4 mg IV Q6H PRN PRN Reason: Nausea And Vomiting Stop: 08/09/23 00:04 Pantoprazole Sodium (Pantoprazole 40 Mg Tab) 40 mg PO QAM [facility] Stop: 08/09/23 08:59 Last Admin: 07/13/23 08:00 Dose: 40 mg Ropinirole HCl (Ropinirole Hcl 2 Mg Tablet) 2 mg PO TID [facility] Stop: 08/09/23 08:59 Last Admin: 07/13/23 07:57 Dose: 2 mg Rosuvastatin Calcium (Rosuvastatin Calcium 20 Mg Tab) 20 mg PO QAM [facility] Stop: 08/09/23 08:59 Last Admin: 07/13/23 08:00 Dose: 20 mg Sucralfate (Sucralfate 1 Gm/10 Ml Udc) 1 gm PO QID PRN PRN Reason: NEEDED Stop: 08/09/23 01:24 Tramadol HCl (Tramadol Hcl 50 Mg Tablet) 50 mg PO BID PRN PRN Reason: Pain Stop: 08/09/23 01:24 Last Admin: 07/13/23 08:05 Dose: 50 mg Warfarin Sodium (Warfarin Sod 5 Mg Tab) 5 mg PO ONE ONE Stop: 07/13/23 11:16 Warfarin Sodium (Warfarin Sod 5 Mg Tab) 5 mg PO DAILY@1600 [facility] Stop: 08/13/23 15:59 (1) Acute exacerbation of CHF (congestive heart failure) Heart failure type: diastolic Qualified Code(s): I50.33 - Acute on chronic diastolic (congestive) heart failure
--- NOTE | 2023-07-13 12:10 | Communication Note ---
Date of Service: July 13, 2023 Bumex 1 mg IV x 1 now supplement potassium. INR goal 3-3.5. Today INR =2.9 Administer 2.5 mg Coumadin x 1 today in addition to daily dose of 5 mg. Check INR in am.
[2023-07-13] MEDS: WARFARIN SOD 5 MG TAB PO ONE (12:15)
[2023-07-13] MEDS: POTASSIUM CHLORIDE PWD 20 MEQ PACK PO ONE (12:15)
[2023-07-13] MEDS: BUPRENORPHINE 5 MCG/HR TDSY TD SCH (12:16)
[2023-07-13] MEDS: BUMETANIDE 1 MG in SYRINGE 0 ML IV ONE (12:48)
[2023-07-13] MEDS: POTASSIUM CHLORIDE CRTAB 20 MEQ TABCR PO STA ×2 (13:17)
[2023-07-13] MEDS: WARFARIN SOD 2.5 MG TAB PO ONE (13:25)
--- NOTE | 2023-07-13 13:35 | Cardiology Progress Note ---
Date of Service July 13, 2023 Assessment & Plan (1) Acute exacerbation of CHF (congestive heart failure): (2) Rheumatic heart disease: (3) H/O mitral valve replacement with mechanical valve: (4) Permanent atrial fibrillation: Plan Plan: -Known chronic diastolic HF. Complicated by CKD. Patient has been compliant with all medications and therapies. -Precipitating factors likely her recent decline in renal function, discontinuation of her Metolazone and also increased free water intake. -Bumex 1 mg IV x 1 now supplement potassium. INR goal 3-3.5. Today INR =2.9 Administer 2.5 mg Coumadin x 1 today in addition to daily dose of 5 mg. Check INR in am. As outpatient, consider valve clinic referral with regards to tricuspid valve intervention. Continue Rocephin for Klebsiella UTI. Admission and Anticipated Discharge Date Admission Date: July 09, 2023 Subjective Patient seen and examined. Resting comfortably in bedside chair. Rate cont rolled atrial fibrillation noted on telemetry. Physical Exam Constitutional: well developed and well nourished; no acute distress Neck: normal visual inspection and trachea midline Respiratory: normal respiratory effort Auscultation: + diminished lung sounds (bilateral bases ); no crackles, no rales, no rhonchi and no wheezes Cardiovascular: Rate/Rhythm: + irregularly irregular Heart Sounds: normal S1, normal S2 and + click (hx of mechanical valve ) Vessels: dorsalis pedis pulses present; no JVD Extremities: + edema (2+ BLE) Skin: no rashes, warm and dry Psychiatric: A+Ox3, euthymic affect Results & Data Vital Signs (Past 12 Hours) Vital Signs Temp Pulse Resp BP Pulse Ox Pulse Ox O2 Del Method 07/13/23 11:07 36.6 C 56 L 19 126/72 100 Room Air 07/13/23 08:19 Room Air 07/13/23 08:00 99 07/13/23 07:09 36.4 C L 62 19 115/71 93 Room Air 07/13/23 03:50 36.7 C 64 17 118/64 100 Nasal Cannula O2 Del Method O2 Flow Rate O2 Flow Rate 07/13/23 11:07 07/13/23 08:19 07/13/23 08:00 Nasal Cannula 3.5 07/13/23 07:09 07/13/23 03:50 3.5 Laboratory Results Coagulation 07/13/23 Range/Units 05:37 PT 28.7 H (9.0-12.0) Seconds CBC 07/13/23 Range/Units 05:37 WBC 5.20 (4.8-10.8) K/ul RBC 4.03 L (4.20-5.40) M/uL Hgb 11.4 L (12.0-16.0) g/dl Hct 35.7 L (37.0-47.0) % Plt Count 97 L (130-400) K/uL Comprehensive Metabolic Panel 07/13/23 Range/Units 05:37 Sodium 134 L (136-145) mmol/L Potassium 3.6 (3.5-5.1) mmol/L Chloride 98 (98-107) mmol/L Carbon Dioxide 32 (21-32) mmol/L BUN 25 H (6-23) mg/dl Creatinine 1.66 H D (0.6-1.2) mg/dl Glucose 120 H (70-99(Fasting)) mg/dl Calcium 9.9 (8.6-10.3) mg/dl Intake and Output 07/12/23 07/13/23 07/13/23 22:59 06:59 14:59 Intake Total 480 / 1450 240 / 1450 50 / 50 Output Total 100 / 1500 800 / 1500 625 / 625 Balance 380 / -50 -560 / -50 -575 / -575 Intake: IV 50 / 50 cefTRIAXone SODIUM 1,000 mg In 50 / 50 50 ml @ 100 mls/hr IV Q24H [facility] Rx#:[id number] Oral 480 / 1400 240 / 1400 Output: Urine 400 / 500 625 / 625 Urine Amount (Catheter) 100 / 1000 400 / 1000 External 100 / 1000 400 / 1000 Other: # Unmeasured Voids 2 Weight 65.4 kg Weight Measurement Method Standing Scale (1) Acute exacerbation of CHF (congestive heart failure) Heart failure type: diastolic Qualified Code(s): I50.33 - Acute on chronic diastolic (congestive) heart failure
--- NOTE | 2023-07-14 04:51 | Hospitalist Progress Note ---
Date of Service July 14, 2023 Assessment & Plan (1) Acute exacerbation of CHF (congestive heart failure): Plan: History diastolic dysfunction Cardiology consult Re: CHF Strict I/O's, daily weights, CHF education, fluid restriction Cardiology consulted and following Switched from metoprolol tartrate to succinate LE improved Echo - LVEF 55 to 60%. LV wall motion is abnormal. Severe biatrial enlargement. Mild aortic regurg. There is a central disc (MedtronicHall type) mechanical prosthesis. There is no mitral valve stenosis. Significant mitral regurg is absent. There is severe tricuspid regurg. Doppler findings do not enriquez ggest pulmonary hypertension. * Consider referral to valve clinic for potential TV clip. Would need RH cath to look for PH. * Goal INR - between 2.5-3.5 (discussed w/ Dr. Farmer cardiology - goal 3 - 3.5)- resumed coumadin * Discussed DC instruction w/ cardiology - increase torsemide to 100 mg daily * Metoprolol tartrate was also switched to succinate 50 mg daily VICKY on CKD - creatinine down to 1.58 - held lasix and aldactone - given Bumex 1g x1 on 07/12, will give bumex again today - cont. to monitor renal function - AM BMP ordered UTI - UA c/w UTI - Ucultx posit for Klebsiella - cont. Rocephin for now, dc on po abx SSS/rheumatic heart disease/history of mechanical MVR on Coumadin, INR therapeutic / supratherap., hold warfarin history of Linq insertion hx CAD as per records hypertension, stable hyperlipidemia, on statin Rx hx embolic CVA as per records COPD, not in acute exacerbation DM2 diet-controlled, reasonable control as of recent hemoglobin A1c of 7.3, April 2023 Basal bolus insulin, ISS BG goal 110-1 40, carb count coverage Hypothyroidism, euthyroid as of recent outpatient TSH chronic anemia, hemoglobin at baseline DVT prophylaxis. Coumadin INR goal between 3 - 3.5 Full code Admission and Anticipated Discharge Date Admission Date: July 09, 2023 Subjective Pt seen in follow up of CHF, complex cardiac hx, hx of CKD, now also w/ UTI Currently sitting up in chair in NAD Feeling much better overall, LE edema improved, and abd. girth distention has resolved Denies chest pain Cr improved today-- will give one more dose of bumex Cardiology consulted and discussed with - management for today and discharge instructions Review of Systems Review of Systems: All systems reviewed & are unremarkable except as noted in Subjective Physical Exam Physical Exam: GENERAL: WD/WN elderly F in NAD HEENT: NC/AT, EOMI NECK : Supple CHEST : CTAB, no wheezing HEART : Irregular, + mechan. click ABDOMEN: Some distention, soft, nontender EXTREMITIES : bilateral LE swelling (improved), moves extremities NEUROLOGIC : awake, alert, no facial asymmetry, mild dysarthria (chronic as per patient ), moving extremities SKIN: warm, dry Results & Data Results & Data Vital Signs (Past 12 Hours) Vital Signs Temp Pulse Pulse Resp BP Pulse Ox O2 Del Method 07/14/23 03:15 36.5 C 75 17 126/70 97 Room Air 07/14/23 00:45 66 07/13/23 23:43 36.6 C 68 17 155/72 H 97 Room Air 07/13/23 19:20 36.7 C 66 16 118/62 99 Room Air Laboratory Results 07/14/23 07/14/23 07/13/23 Range/Units 07:00 05:50 20:37 WBC 5.13 (4.8-10.8) K/ul RBC 3.87 L (4.20-5.40) M/uL Hgb 11.1 L (12.0-16.0) g/dl Hct 34.3 L (37.0-47.0) % MCV 88.6 (80.0-100.0) fL MCH 28.7 (25.0-34.0) pg MCHC 32.4 (32.0-36.0) g/dL RDW Std Deviation 48.9 H (36.4-46.3) fL RDW Coeff of Courtney 15.2 H (11.5-14.5) % Plt Count 108 L (130-400) K/uL MPV 11.3 (9.4-12.4) fL PT 24.1 H (9.0-12.0) Seconds INR 2.4 H (0.9-1.1) Sodium 133 L (136-145) mmol/L Potassium 4.1 (3.5-5.1) mmol/L Chloride 98 (98-107) mmol/L Carbon Dioxide 30 (21-32) mmol/L Anion Gap 5 (3-11) BUN 23 (6-23) mg/dl Creatinine 1.58 H (0.6-1.2) mg/dl Est Cr Clr Drug Dosing 28.4 ml/min Est GFR ( Amer) 38.3 ml/min Est GFR (Non-Af Amer) 33.0 ml/min BUN/Creatinine Ratio 14.6 (10-20) Glucose 99 (70-99(Fasting)) mg/dl POC Glucose 96 178 H (70-99) mg/dl Calcium 9.7 (8.6-10.3) mg/dl Phosphorus 2.7 (2.5-4.9) mg/dl Magnesium 2.3 (1.7-2.4) mg/dl 07/13/23 07/13/23 Range/Units 16:10 11:04 WBC (4.8-10.8) K/ul RBC (4.20-5.40) M/uL Hgb (12.0-16.0) g/dl Hct (37.0-47.0) % MCV (80.0-100.0) fL MCH (25.0-34.0) pg MCHC (32.0-36.0) g/dL RDW Std Deviation (36.4-46.3) fL RDW Coeff of Courtney (11.5-14.5) % Plt Count (130-400) K/uL MPV (9.4-12.4) fL PT (9.0-12.0) Seconds INR (0.9-1.1) Sodium (136-145) mmol/L Potassium (3.5-5.1) mmol/L Chloride (98-107) mmol/L Carbon Dioxide (21-32) mmol/L Anion Gap (3-11) BUN (6-23) mg/dl Creatinine (0.6-1.2) mg/dl Est Cr Clr Drug Dosing ml/min Est GFR ( Amer) ml/min Est GFR (Non-Af Amer) ml/min BUN/Creatinine Ratio (10-20) Glucose (70-99(Fasting)) mg/dl POC Glucose 79 103 H (70-99) mg/dl Calcium (8.6-10.3) mg/dl Phosphorus (2.5-4.9) mg/dl Magnesium (1.7-2.4) mg/dl Medications Administered Current Inpatient Medications Acetaminophen (Acetaminophen 325 Mg Tab) 650 mg PO QID PRN PRN Reason: pain/fever Stop: 08/09/23 00:05 Last Admin: 07/11/23 16:23 Dose: 650 mg Albuterol (Albut/Ipratrop 3mg/0.5mg Neb 3 Ml Vial) 3 ml INH QID PRN; Protocol PRN Reason: shortness of breath or wheezing Stop: 08/09/23 01:24 Azelastine HCl (Azelastine Hcl 0.1% Nasal 200 Sprays/27,400 Mcg Btl) 2 sprays NA [facility] Stop: 08/09/23 08:59 Last Admin: 07/13/23 21:13 Dose: 2 sprays Buprenorphine HCl (Buprenorphine 5 Mcg/Hr Tdsy) 1 patch TD Q7D [facility] Stop: 08/12/23 11:59 Last Admin: 07/13/23 12:16 Dose: 1 patch Citalopram Hydrobromide (Citalopram 20 Mg Tab) 10 mg PO DAILY [facility] Stop: 08/09/23 08:59 Last Admin: 07/13/23 07:59 Dose: 10 mg Dextrose (Dextrose 50% 50 Ml Syringe) 25 - 50 ml IV UD PRN; Protocol PRN Reason: Hypoglycemia Protocol Stop: 08/09/23 01:24 Folic Acid (Folic Acid 1 Mg Tab) 1 mg PO QAM [facility] Stop: 08/09/23 08:59 Last Admin: 07/13/23 08:00 Dose: 1 mg Glucagon (Glucagon For Inj 1 Mg Vial) 1 mg SQ UD PRN; Protocol PRN Reason: Hypoglycemia Protocol Stop: 08/09/23 01:24 Glucose (Glucose 40% Gel 15 Gm Tube) 15 - 30 gm PO UD PRN; Protocol PRN Reason: Hypoglycemia Protocol Stop: 08/09/23 01:24 Glucose (Glucose 10 Tab/Tube) 4 - 8 tab PO UD PRN; Protocol PRN Reason: Hypoglycemia Treatment Stop: 08/09/23 01:24 Ceftriaxone Sodium (Rocephin) 1,000 mg in 50 mls @ 100 mls/hr IV Q24H [facility] Stop: 07/15/23 10:59 Last Infusion: 07/13/23 12:51 Dose: Infused Insulin Aspart (Insulin Aspart Per Unit Charge) 0 units SC ACHS [facility] Stop: 08/09/23 01:24 Last Admin: 07/13/23 21:14 Dose: 2 units Levothyroxine Sodium ([facility]othyroxine Sodium 100 Mcg Tablet) [facility]: 08/09/23 06:29 Last Admin: 07/13/23 05:38 Dose: 100 mcg Metoclopramide HCl (Metoclopramide Hcl 10 Mg Tablet) 10 mg PO DAILYBB [facility] Stop: 08/09/23 06:29 Last Admin: 07/13/23 05:38 Dose: Not Given Metoprolol Succinate (Metoprolol Succ 50mg Ext Rel Tab) 50 mg PO [facility] Stop: 08/12/23 08:59 Last Admin: 07/13/23 07:59 Dose: 50 mg Miscellaneous (Carbohydrates For Hypoglycemia ) 15 - 30 gm PO UD PRN PRN Reason: Hypoglycemia Protocol Stop: 08/09/23 01:24 Miscellaneous (Check Buprenorphine Patch) 1 each N/A QS [facility] Stop: 08/09/23 07:59 Last Admin: 07/14/23 00:11 Dose: 1 each Miscellaneous (Remove & Waste Butrans Patch 1 Ea Ea) 1 each N/A Q7D [facility] Stop: 08/12/23 11:59 Last Admin: 07/13/23 12:16 Dose: 1 each Nitroglycerin (Nitroglycerin Sl 0.4 Mg/Tab Tab) 0.4 mg SL Q5M PRN PRN Reason: Chest Pain Stop: 08/09/23 01:24 Ondansetron HCl (Ondansetron Inj 2 Mg/Ml 2 Ml Vial) 4 mg IV Q6H PRN PRN Reason: Nausea And Vomiting Stop: 08/09/23 00:04 Pantoprazole Sodium (Pantoprazole 40 Mg Tab) 40 mg PO [facility] Stop: 08/09/23 08:59 Last Admin: 07/13/23 08:00 Dose: 40 mg Ropinirole HCl (Ropinirole Hcl 2 Mg Tablet) 2 mg PO TID [facility] Stop: 08/09/23 08:59 Last Admin: 07/13/23 21:14 Dose: 2 mg Rosuvastatin Calcium (Rosuvastatin Calcium 20 Mg Tab) 20 mg PO [facility] Stop: 08/09/23 08:59 Last Admin: 07/13/23 08:00 Dose: 20 mg Sucralfate (Sucralfate 1 Gm/10 Ml Udc) 1 gm PO QID PRN PRN Reason: NEEDED Stop: 08/09/23 01:24 Tramadol HCl (Tramadol Hcl 50 Mg Tablet) 50 mg PO BID PRN PRN Reason: Pain Stop: 08/09/23 01:24 Last Admin: 07/13/23 21:17 Dose: 50 mg Warfarin Sodium (Warfarin Sod 5 Mg Tab) 5 mg PO DAILY@1600 [facility] Stop: 08/13/23 15:59 (1) Acute exacerbation of CHF (congestive heart failure) Heart failure type: diastolic Qualified Code(s): I50.33 - Acute on chronic diastolic (congestive) heart failure
[2023-07-14 06:31] LABS: Hematocrit (blood only) 34.3 % (37.0-47.0); Hemoglobin 11.1 g/dl (12.0-16.0); Mean Corpuscular Hemoglobin 28.7 pg (25.0-34.0); Mean Corpuscular Hgb Conc 32.4 g/dL (32.0-36.0); Mean Corpuscular Volume 88.6 fL (80.0-100.0); Mean Platelet Volume 11.3 fL (9.4-12.4); Platelet Count 108 K/uL (130-400); RDW Coefficient of Variation 15.2 % (11.5-14.5); RDW Standard Deviation 48.9 fL (36.4-46.3); Red Blood Count 3.87 M/uL (4.20-5.40); White Blood Count 5.13 K/ul (4.8-10.8)
[2023-07-14 06:57] LABS: BUN Creatinine Ratio 14.6 (10-20); Calcium 9.7 mg/dl (8.6-10.3); Creatinine Clr Calc Pharmacy 28.4 ml/min; Est GFR (African American) 38.3 ml/min; INR 2.4 (0.9-1.1); Magnesium 2.3 mg/dl (1.7-2.4); Phosphorus 2.7 mg/dl (2.5-4.9); Potassium 4.1 mmol/L (3.5-5.1); Prothrombin Time 24.1 Seconds (9.0-12.0)
[2023-07-14] MEDS ORDERED: WARFARIN SOD 5 MG TAB PO STA (07:46)
[2023-07-14] MEDS ORDERED: WARFARIN SOD 2.5 MG TAB PO ONE (08:30)
--- NOTE | 2023-07-14 09:18 | Cardiology Progress Note ---
Date of Service July 14, 2023 Assessment & Plan (1) Acute exacerbation of CHF (congestive heart failure): (2) Rheumatic heart disease: (3) H/O mitral valve replacement with mechanical valve: (4) Permanent atrial fibrillation: Plan Plan: -Known chronic diastolic HF. Complicated by CKD. Patient has been compliant with all medications and therapies. -Precipitating factors likely her recent decline in renal function, discontinuation of her Metolazone and also increased free water intake. Creatinine down to 1.58 today having peaked at 2.14 on 07/11/2023. Tolerated Bumex 1 mg IV on 07/13/2023. Proceed with a dose of Bumex 2 mg IV x 1 today 07/14/2023. Potassium 4.1. Supplement with potassium chloride 40 mill equivalents to keep potassium even. INR 2.4. Patient's goal is 3-3.5 given the age of her prosthetic heart valves. History of bleeding complication on heparin bridge. Proceed with Coumadin 10 mg x 1 today, return to previous outpatient dosing tomorrow. Transition to oral antibiotics for Klebsiella UTI. Per review of outpatient notes and results, patient had a chemistry panel as an outpatient on 07/03/2027 with sodium down to 128, potassium 3.2, creatinine 2.1. Therefore her weekly treatment with metolazone was stopped at that time. At present, I recommend discharge on a higher dose of daily torsemide, 100 mg daily as compared to 50 mg daily. Continue spironolactone 12.5 mg daily. Hold off on resuming metolazone. Discussed with patient she is agreeable. Referral placed for [facility] valve clinic to discuss tricuspid valve intervention. Have repeat chemistry panel performed this week, perhaps on Saturday, order already in [facility]. Admission and Anticipated Discharge Date Admission Date: July 09, 2023 Subjective Patient seen in cardiology follow-up. Overall feeling well. States her abdominal bloating that prompted her to come to the hospital is improved, lower extremity edema improved subjectively and she is at her usual chronic baseline of 1+ bilateral lower extremity edema. Telemetry reveals rate controlled atrial fibrillation in the 60s. Physical Exam Constitutional: well developed and well nourished; no acute distress Neck: normal visual inspection and trachea midline Respiratory: normal respiratory effort Auscultation: + diminished lung sounds (bilateral bases ); no crackles, no rales, no rhonchi and no wheezes Cardiovascular: Rate/Rhythm: regular rate, + bradycardic and + irregularly irregular Heart Sounds: normal S1, normal S2 and + click (hx of mechanical valve ) Vessels: dorsalis pedis pulses present; no JVD Extremities: + edema (2+ BLE) Skin: no rashes, warm and dry Psychiatric: A+Ox3, euthymic affect Results & Data Vital Signs (Past 12 Hours) Vital Signs Temp Pulse Pulse Resp BP Pulse Ox O2 Del Method 07/14/23 07:04 36.3 C L 53 L 19 137/72 100 Room Air 07/14/23 03:15 36.5 C 75 17 126/70 97 Room Air 07/14/23 00:45 66 07/13/23 23:43 36.6 C 68 17 155/72 H 97 Room Air Laboratory Results Coagulation 07/14/23 Range/Units 05:50 PT 24.1 H (9.0-12.0) Seconds CBC 07/14/23 Range/Units 05:50 WBC 5.13 (4.8-10.8) K/ul RBC 3.87 L (4.20-5.40) M/uL Hgb 11.1 L (12.0-16.0) g/dl Hct 34.3 L (37.0-47.0) % Plt Count 108 L (130-400) K/uL Comprehensive Metabolic Panel 07/14/23 Range/Units 05:50 Sodium 133 L (136-145) mmol/L Potassium 4.1 (3.5-5.1) mmol/L Chloride 98 (98-107) mmol/L Carbon Dioxide 30 (21-32) mmol/L BUN 23 (6-23) mg/dl Creatinine 1.58 H (0.6-1.2) mg/dl Glucose 99 (70-99(Fasting)) mg/dl Calcium 9.7 (8.6-10.3) mg/dl Intake and Output 07/13/23 07/14/23 07/14/23 22:59 06:59 14:59 Output Total 626 / 1627 150 / 1627 300 / 300 Balance -626 / -557 -150 / -557 -300 / -300 Output: Urine 625 / 1625 150 / 1625 300 / 300 # Bowel Movements 1 / 2 Other: Weight 65.4 kg 66.5 kg Patient Weight 07/15/23 06:59 Weight 66.5 kg (1) Acute exacerbation of CHF (congestive heart failure) Heart failure type: diastolic Qualified Code(s): I50.33 - Acute on chronic diastolic (congestive) heart failure
[2023-07-14] MEDS: WARFARIN SOD 10 MG TAB PO STA (09:25)
[2023-07-14] MEDS: BUMETANIDE 1 MG in SYRINGE 0 ML IV ONE ×2 (09:27→10:47)
[2023-07-14] MEDS ORDERED: BUMETANIDE 2 MG in SYRINGE 0 ML IV ONE (09:30)
[2023-07-14] MEDS: POTASSIUM CHLORIDE CRTAB 20 MEQ TABCR PO STA (09:54)
--- NOTE | 2023-07-14 10:20 | Discharge Summary ---
Date of Service July 14, 2023 Admission HPI Per Admitting Provider History obtained from patient and records. Medical history significant for chronic diastolic heart failure (EF 60%, TTE 2023), SSS/rheumatic heart disease/history of mechanical MVR on Coumadin, history of Linq insertion, CAD as per records, hypertension, hyperlipidemia, history embolic CVA as per records, COPD, DM2 diet-controlled, CRI (baseline creatinine 1.6-2 as per records), chronic anemia (baseline hemoglobin 10-11), RLS, chronic pain on Suboxone Last confinement February 2022 for bronchitis symptoms and supratherapeutic INR Patient seen at [facility] cardiology office 2 weeks ago on follow-up visit. Worsening symptoms of right heart failure with increased abdominal girth and lower extremity edema as per note. Patient prescribed metolazone every week for fluid management. Initial improvement in fluid retention symptoms. Few days ago, patient noted shortness of breath worse on exertion. No chest pain. 7 pound weight gain in the last week as per caregiver note. Patient hypoxemic, O2 sats 80s on ambulation at home. Patient compliant with home medications and fluid restriction. Patient directed to ER for evaluation. 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 Exam Per Admitting Provider GENERAL: Comfortable, pleasant, no respiratory distress SKIN: Normal color, warm HEENT: Marlin palpebral conjunctivae, no ptosis, dry buccal mucosa NECK : Supple, no tenderness CHEST : CTA, no tenderness HEART : Irregular, mechanical murmur murmur ABDOMEN: Some distention, nontender EXTREMITIES : bilateral LE swelling, no LE tenderness, no other conspicuous deformities noted NEUROLOGIC : Coherent, no facial asymmetry, mild dysarthria (chronic as per patient ), no other gross focality Principal Diagnosis Acute exacerbation of CHF UTI Permanent atrial fibrillation H/O mitral valve replacement with mechanical valve Discharge Exam GENERAL: WD/WN elderly F in NAD HEENT: NC/AT, EOMI NECK : Supple CHEST : CTAB, no wheezing HEART : Irregular, + mechan. click ABDOMEN: Some distention, soft, nontender EXTREMITIES : bilateral LE swelling (improved), moves extremities NEUROLOGIC : awake, alert, no facial asymmetry, mild dysarthria (chronic as per patient ), moving extremities SKIN: warm, dry Discharge Data Allergies Allergy/AdvReac Type Severity Reaction Status Date / Time budesonide Allergy Severe could not Verified 07/09/23 20:12 breath hydroxyzine Allergy Severe DYSTONIA Verified 07/09/23 20:12 prochlorperazine Allergy Severe NUCHAL Verified 07/09/23 20:12 DYSTONIA promethazine Allergy Severe NUCHAL Verified 07/09/23 20:12 DYSTONIA enoxaparin [From Lovenox] Allergy Unknown ON Verified 07/09/23 20:12 [facility] Inhibitors AdvReac Intermediate COUGH Verified 07/09/23 20:12 gabapentin AdvReac Intermediate CONFUSION/D Verified 07/09/23 20:12 ROWSY lisinopril AdvReac Intermediate Cough Verified 07/09/23 20:12 metformin AdvReac Intermediate DIARRHEA Verified 07/09/23 20:12 oxycodone AdvReac Intermediate NUMB ALL Verified 07/09/23 20:12 OVER parsley AdvReac Intermediate AGITATION Verified 07/09/23 20:12 tetracycline AdvReac Intermediate NAUSEA/VOMI Verified 07/09/23 20:12 TING steroids Allergy Mild Unknown Uncoded 07/09/23 20:12 NAUSEA MEDICINES Allergy Unknown SEE NOTE Uncoded 07/09/23 20:12 BELOW Consultations 07/09/23 21:43 ED Decision to Admit Stat 07/10/23 01:25 Consult Cardiology Routine Ordered Studies 07/09/23 17:59 CT for pulmonary embolism PE [CT angio chest PE protocol] Stat FINDINGS: LUNGS: No focal consolidation, pleural effusion, or pneumothorax. Atelectasis at the lung bases. HEART: Cardiomegaly. Prosthetic mitral valve. VASCULATURE: No acute pulmonary embolism. Atherosclerotic changes of the aorta. THYROID: Within normal limits. MEDIASTINUM + LYMPH NODES: There are no pathologically enlarged mediastinal, hilar, or axillary lymph nodes. SUPERIOR ABDOMEN: Hepatic steatosis. MUSCULOSKELETAL: Degenerative changes. IMPRESSION: No acute pulmonary embolism. Prosthetic mitral valve. Hospital Course (1) Acute exacerbation of CHF (congestive heart failure): History diastolic dysfunction Cardiology consult Re: CHF Strict I/O's, daily weights, CHF education, fluid restriction Cardiology consulted and following Switched from metoprolol tartrate to succinate LE improved Echo - LVEF 55 to 60%. LV wall motion is abnormal. Severe biatrial enlargement. Mild aortic regurg. There is a central disc (MedtronicHall type) mechanical prosthesis. There is no mitral valve stenosis. Significant mitral regurg is absent. There is severe tricuspid regurg. Doppler findings do not suggest pulmonary hypertension. * Consider referral to valve clinic for potential TV clip. Would need RH cath to look for PH. * Goal INR - between 2.5-3.5 (discussed w/ Dr. aFrmer cardiology - goal 3 - 3.5)- resumed coumadin * Discussed DC instruction w/ cardiology - increase torsemide to 100 mg daily * Metoprolol tartrate was also switched to succinate 50 mg daily VICKY on CKD - creatinine down to 1.58 - held lasix and aldactone - given Bumex 1g x1 yesterday will give bumex again today before DC - cont. to monitor renal function UTI - UA c/w UTI - Ucultx posit for Klebsiella - cont. Rocephin for now, dc on po abx SSS/rheumatic heart disease/history of mechanical MVR on Coumadin, on warfarin - INR 2.4 - will give 10 mg coumadin before DC history of Linq insertion hx CAD as per records hypertension, stable hyperlipidemia, on statin Rx hx embolic CVA as per records COPD, not in acute exacerbation DM2 diet-controlled, reasonable control as of recent hemoglobin A1c of 7.3, April 2023 Basal bolus insulin, ISS BG goal 110-1 40, carb count coverage Hypothyroidism, euthyroid as of recent outpatient TSH chronic anemia, hemoglobin at baseline Total Time Total Time Spent Total Time Spent (In Minutes): 40 Discharge Plan Discharge Items Patient Disposition: Home - Self-Care Reason For Visit: CHF Discharge Diagnosis: Acute exacerbation of CHF UTI Permanent atrial fibrillation H/O mitral valve replacement with mechanical valve Activity: Per Instructions section Non-emergency contact: Primary Care Provider and Seat Trimmer Call non-emergency contact if: you have any medication questions and your symptoms worsen Follow-up/Referrals: Shara Ray MD [Primary Care Provider] - Diet: Carb Consistent or DM2 and Heart Healthy Addtl Attending Provider Instructions: Follow up with your primary care doctor and sales representative printing. Your torsemide was increased to 100 mg daily. Your metoprolol tartrate was changed to succinate - take it as prescribed - 50 mg daily. Continue taking your aldactone. Finish antibiotic treatment as prescribed. 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 * Use the same scale. * Wear the same amount of clothing. * Write your weight down on a chart. * Call your Primary Care doctor if you gain more than 2-3 pounds in 1-2 days. MEDICATIONS * Use this discharge instruction sheet for medication instructions. * Take your medications at the time your doctor ordered. * Do not skip a dose of your medicines. * If you miss a dose of medicine, take it as soon as possible, but DO NOT DOUBLE A DOSE. * Read your medicine information when you get home. * Know all of the side effects of your medicine. If in doubt, ask your pharmacist * Call your Primary Care doctor's office if you have any side effects. * Be sure all of your doctors know what medicine and herbs you take (including cold, flu, and herbal medicine). Take the following with you to your follow-up doctor appointments: * Weight Chart * Medication List * List of questions Do not drink excessive alcohol, beer or wine. Pending Studies at Discharge: No Stand-Alone Forms: [facility] Cess[facility] Medications and DC Order Prescriptions: New torsemide 100 mg tablet 100 mg PO DAILY Qty: 30 0RF cefuroxime axetil 250 mg tablet 250 mg PO BID 2 Days Qty: 4 0RF metoprolol succinate 50 mg Tablet Extended Release 24 Hr 50 mg PO QAM Qty: 30 0RF Continued (DME) Oxygen Home Liters Per Minute See Rx Instructions .Route Qty: 1 0RF Rx Instructions: Nocturnal oxygen at 2lpm vial NC/ Stationary concentrator/ LON99 (DME) Oxygen Home Liters Per Minute See Rx Instructions .Route Qty: 2 0RF Rx Instructions: Oxygen himidification and supplies -LON99 (DME) Incentive Spirometer Misc See Rx Instructions .MEDSUPPLY Qty: 1 0RF Rx Instructions: As directed Combivent Respimat 20-100 mcg/actuation mist 1 puff INHALATION QID PRN (Reason: Shortness Of Breath) Qty: 12 1RF ipratropium-albuterol 0.5 mg-3 mg(2.5 mg base)/3 mL solution for nebulization 3 ml INHALATION QID PRN (Reason: shortness of breath or wheezing) Qty: 1080 2RF levothyroxine 100 mcg tablet 100 mcg PO DAILYBB folic acid 1 mg Tablet 1 mg PO QAM Qty: 30 0RF ropinirole 2 mg tablet 2 mg PO TID spironolactone 25 mg Tablet 12.5 mg PO QAM magnesium hydroxide [Milk of Magnesia] 400 mg/5 mL Suspension 5 ml PO DAILY PRN (Reason: Constipation) nitroglycerin [Nitrostat] 0.4 mg Tablet, Sublingual 0.4 mg Sublingual DIRECTED PRN (Reason: Chest Pain) omeprazole 20 mg Capsule,Delayed Release(Dr/Ec) 20 mg PO QAM cholecalciferol (vitamin D3) [Vitamin D3] 1,000 unit Capsule 1,000 unit PO Q OTHER DAY citalopram 10 mg tablet 10 mg PO DAILY tramadol 50 mg tablet 50 mg PO BID PRN (Reason: Pain) rosuvastatin 20 mg tablet 20 mg PO QAM azelastine 137 mcg (0.1 %) aerosol,spray 2 spray INTRANASAL [facility] Magnesium Glycinate 665 665 mg PO DAILY valacyclovir 1 gram tablet 2,000 mg PO AMPM PRN (Reason: Cold Sores) nystatin 100,000 unit/mL suspension 5 ml mucous membrane QID PRN (Reason: THRUSH) sucralfate 100 mg/mL suspension 10 ml PO QID PRN (Reason: NEEDED) warfarin 2.5 mg tablet 2.5 mg PO DIRECTED acetaminophen [Tylenol Extra Strength] 500 mg Tablet 500 mg PO Q6H PRN (Reason: Pain) lidocaine HCl 4 % (40 mg/mL) solution 1 applic mucous membrane DIRECTED PRN (Reason: MOUTH ULCERS) Premarin 0.625 mg/gram cream 0.625 mg vaginal DIRECTED albuterol sulfate 90 mcg/actuation HFA aerosol inhaler 2 puff INHALATION Q4H PRN (Reason: COUGH/SHORT OF BREATH/WHEEZING) metoclopramide HCl [Reglan] 10 mg Tablet 10 mg PO DAILYBB Rx Instructions: administer 30 minutes before meals buprenorphine 5 mcg/hour patch weekly 5 mcg transdermal WK benzonatate 100 mg capsule 100 mg PO TID PRN (Reason: cough) Held Jardiance 10 mg Tablet 10 mg PO QAM Hold Instructions: Resume on 07/22/23. Discuss with primary care doctor and cardiology before resuming Discontinued metoprolol tartrate 25 mg Tablet 25 mg PO BID Qty: 30 2RF torsemide 100 mg tablet 50 mg PO QAM Discharge Orders: Discharge Order (Routine); Ordered 07/14/23 Ordered By: Willard Goldstein Admission Data Admit Date/Time: 07/09/23 23:59 Attending Provider: Willard Goldstein Admit Provider: Justin Perez Primary Care Provider: Shara Ray Other Providers: Justin Perez; Angie Alcantar; Judd Sutton; Hadley Molina; Nehemias Salcido; Moris Spivey; Thierry Puente; Cristal Vu; Naomi Vila; Lesvia Mukherjee; Angie Frausto; Mika Malagon; Abe Lamar; Roseanne Bob; Maureen Finley; Maria Ines Bowers; Jasson Alfonso; Rafa Walker; Michela Pacheco
[2023-07-14] MEDS ORDERED: WARFARIN SOD 5 MG TAB PO SCH (16:00)
[2023-07-15] MEDS ORDERED: WARFARIN SOD 5 MG TAB PO SCH (16:00)
== END 2023-07-14 13:45 | disposition home or self-care (01) | DRG 291 ==
LOC: ED 16:31 → EDINP 23:59 → 2S 07-10 01:25

== ENCOUNTER 2024-05-12 01:13 | Observation (INO) ==
--- NOTE | 2024-05-12 01:53 | Emergency Department Note ---
Impression & Plan Substernal chest pain, Elevated troponin admit to the [facility] ED Provider Note NAME: ALCIDES MAST AGE: 68 SEX: Female INFORMANT: Patient ED PROVIDER(S): Tawnya Gautam DO CHIEF COMPLAINT: chest pain PLAN: Disposition: admit to the [facility] MEDICAL DECISION MAKING: This is a 68-year-old female patient who had a fairly sudden onset of substernal chest pain around 11:30 PM this evening while she was lying in her recliner watching TV. Family administered 2 sublingual nitroglycerin with no relief of her discomfort. She thought the symptoms could be related to her breathing so she tried an albuterol nebulizer treatment with no relief of her symptoms. EMS was called. Upon their arrival, they administered an additional nitroglycerin, aspirin and fentanyl which did finally relieve her discomfort down to a 7/10. Upon arrival here in the emergency department, Patient has some new ST segment depression noted in leads I and aVL. the patient received additional IV fentanyl which decreased her chest discomfort even more. Laboratory studies revealed an elevated troponin at 17.7. Glucose was elevated at 183. BUN/creatinine were at baseline. INR was at 3.0. There was no leukocytosis or anemia noted. I did review discharge summary/medical records from her hospitalization in February at [facility], the patient had been diagnosed with esophageal dysmotility and was started on Prilosec. I did entertain the possibility that this could be reflux in origin but with the EKG changes and elevated troponin, she will require trending of this lab test. Care/management discussed with: cad manager and [facility] Triage Nursing notes: reviewed and agree With them. Vital Signs: reviewed and unremarkable Additional History obtained from: family members at the bedside Chronic Medical/Social Conditions affecting care: A-fib on Coumadin; oxygen dependent COPD Prior/ Outside/ External records reviewed: I did review the discharge summary out of [facility] for her tricuspid valve repair in February/2024 Differential Diagnosis: GERD, STEMI, NSTEMI, angina Diagnostics, independently interpreted by me: ECG: A-fib at a rate of [address] segment depression in leads I and aVL which is a new finding comparison to previous EKGs. This is slightly concerning for ischemia Cardiac Monitoring: A-fib at a rate of 81 Imaging studies: portable chest x-ray: cardiomegaly with pulmonary vascular congestion as per my independent interpretation HPI: 68 year old Female arrives for evaluation of Chest discomfort. patient who had a fairly sudden onset of substernal chest pain around 11:30 PM this evening while she was lying in her recliner watching TV. Family administered 2 sublingual nitroglycerin with no relief of her discomfort. She thought the symptoms could be related to her breathing so she tried an albuterol nebulizer treatment with no relief of her symptoms. patient has a cardiac history and became concerned. She was hospitalized in February at [facility] for a Tri clip procedure. PAST MEDICAL HISTORY: See Below, PAST SURGICAL HISTORY: See Below, SOCIAL HISTORY: See Below, HOME MEDICATIONS: See list ALLERGIES: see long list VITALS: See Below PHYSICAL EXAMINATION: HEENT: Head - normocephalic and atraumatic. Pupils are equal, round, and reactive to light. Extraocular eye muscles are intact, and sclera are anicteric. Nose - moist nasal mucosa without discharge. Mouth - moist buccal mucosa. Oropharynx is nonerythematous and there is no tonsillar exudate or edema noted. Neck: Supple; no JVD or cervical lymphadenopathy. Heart: Irregularly irregular rhythm with controlled rate. There is a normal S1 and S2 with no murmurs, clicks, or gallops appreciated. Lungs: Clear to auscultation bilaterally with no wheezes, rales, or rhonchi. Abdomen: Soft, completely nontender, nondistended, with good bowel sounds. There are no palpable pulsatile masses or hepatosplenomegaly. There is no guarding, rigidity, or rebound noted. Extremities: Significant peripheral vascular changes noted to both lower extremities with moderate edema to the left lower extremity. There is also erythema and warmth noted to that left lower leg which is not unusual for this patient according to the patient. Skin: warm and dry with good turgor and no rashes. Emergency Department course: The patient was evaluated in room C-9. A complete history and physical was performed. Twelve-lead EKG was obtained. An order was placed for continuous cardiac monitoring. The patient was in atrial fibrillation at a rate of 81. She rated her pain as a 7/10. She was given a dose of IV fentanyl for additional pain relief. Portable chest x-ray was performed. Upon reassessment, I reviewed results of labs and radiology. The patient's pain had diminished significantly. I discussed the case with the [facility] Hospitalist and they will evaluate the patient for further inpatient care. Past Med/Surg History Problem List (Updated 05/12/24 @ 17:22 by Tawnya Gautam DO) Elevated troponin (Acute) Substernal chest pain (Acute) Depression Elevated troponin Esophageal dysmotility Chronic pain COPD (chronic obstructive pulmonary disease) Chest pain Regular wide QRS complex tachycardia (Acute) Rhinovirus infection (Acute) Cough (Acute) Acute kidney injury superimposed on chronic kidney disease (Acute) Acute exacerbation of CHF (congestive heart failure) (Acute) Restrictive lung disease CHF (congestive heart failure) (Acute) Cough (Acute) Acute dyspnea (Acute) Acute foot pain (Acute) Supratherapeutic INR (Acute) Exertional shortness of breath Upper airway cough syndrome Chronic cough Occult blood positive stool H/O mitral valve replacement with mechanical valve Rheumatic heart disease Permanent atrial fibrillation History of CVA (cerebrovascular accident) Chronic diastolic CHF (congestive heart failure) Nontraumatic intramuscular hematoma Hematoma of left thigh (Acute) Mechanical heart valve present (Acute) Encounter for pre-operative examination Asthmatic bronchitis Acute bronchitis Pleural effusion Abnormal chest CT Dysphagia Pneumonia Acute on chronic diastolic HF (heart failure) Shortness of breath (Acute) Atypical chest pain (Acute) Hypoxia (Acute) Chronic heart failure with preserved ejection fraction (HFpEF) History of loop recorder Recurrent syncope Syncope (Acute) UTI (urinary tract infection) DVT prophylaxis Hypothyroidism CKD (chronic kidney disease), stage III Recurrent syncope (Acute) Contusion of scalp (Acute) Hypokalemia (Acute) Dehydration (Acute) Substernal chest pain (Acute) Elevated INR (Acute) Status post total right knee replacement Knee pain Tricompartment degenerative joint disease of knee Knee effusion, left (Acute) A-fib (Chronic) Mitral valve replaced (Chronic) Hemangioma (Acute) Syncope (Acute) Closed head injury (Acute) Forehead laceration (Acute) Burn of hand, right (Acute) VICKY (acute kidney injury) (Acute) Pre-syncope Acute renal failure Severe protein-calorie malnutrition Gant classified according to extent of body surface involved Atrial fibrillation Coronary artery disease Mechanical heart valve present History of CVA (cerebrovascular accident) Diabetes type 2, controlled Hypothyroidism DVT prophylaxis Discharge planning issues Hematoma Rheumatic disease of heart valve H/O mitral valve replacement with mechanical valve Leg edema Post-concussion headache Slurred speech (Acute) Numbness (Acute) Encounter for pre-operative examination Degenerative joint disease of left knee Acute blood loss as cause of postoperative anemia DVT prophylaxis S/P TKR (total knee replacement) Pain, joint, knee, left Hemarthrosis involving knee joint Discharge planning issues Anemia chronic; baseline hgb 9-10 range per chart review Medical History A-fib Anemia Anxiety CKD (chronic kidney disease), stage III Diabetes Encounter for pre-operative examination GERD (gastroesophageal reflux disease) History of blood transfusion HTN (hypertension) Hx of myocardial infarction Hyperlipidemia Hypothyroidism Migraines Mitral valve disease Osteoarthritis Restless legs syndrome TIA (transient ischemic attack) Surgical History H/O radioactive iodine thyroid ablation H/O: hysterectomy History of cardiac cath History of colonoscopy History of tonsillectomy and adenoidectomy History of total left knee replacement Hx of appendectomy Hx of cholecystectomy Hx of mitral valve replacement Hx of tubal ligation Family History Uncle , of [place] in his 40s Coronary heart disease Social History Smoking Status: Never smoker Second Hand Exposure: No; Do You Dip or Chew Tobacco: No; Hx Alcohol Use: Yes Alcohol type: wine Hx Substance Use: No Preferred Language: French Communication Ability: Effective Communication Ability Comment: speech impediment, easily understood Broker Agricultural Produce Required: No Beliefs That Will Affect Care: Shinto Shinto Beliefs: Baptism marital status: Single Current Living Situation: Alone Current Living Situation Comment: from home with childcare worker. current occupational status: disabled How many Children do You have: 0 Feels Safe at Home: Yes Safety Concerns: Feels Safe At This Time Assistive Devices: Oxygen - at Night and Walker Allergies Allergies Allergy/AdvReac Type Severity Reaction Status Date / Time budesonide Allergy Severe could not Verified 05/12/24 04:17 breath hydroxyzine Allergy Severe DYSTONIA Verified 05/12/24 04:17 prochlorperazine Allergy Severe NUCHAL Verified 05/12/24 04:17 DYSTONIA promethazine Allergy Severe NUCHAL Verified 05/12/24 04:17 DYSTONIA enoxaparin [From Lovenox] Allergy Unknown ON Verified 05/12/24 04:17 [facility] Inhibitors AdvReac Intermediate COUGH Verified 05/12/24 04:17 gabapentin AdvReac Intermediate CONFUSION/D Verified 05/12/24 04:17 ROWSY lisinopril AdvReac Intermediate Cough Verified 05/12/24 04:17 metformin AdvReac Intermediate DIARRHEA Verified 05/12/24 04:17 oxycodone AdvReac Intermediate NUMB ALL Verified 05/12/24 04:17 OVER parsley AdvReac Intermediate AGITATION Verified 05/12/24 04:17 tetracycline AdvReac Intermediate NAUSEA/VOMI Verified 05/12/24 04:17 TING steroids Allergy Mild Unknown Uncoded 05/12/24 04:17 NAUSEA MEDICINES Allergy Unknown SEE NOTE Uncoded 05/12/24 04:17 BELOW Home Meds Home Medications Medication Instructions Recorded Confirmed cholecalciferol (vitamin D3) 25 1,000 unit PO Q OTHER DAY 12/05/17 05/12/24 mcg (1,000 unit) capsule (Vitamin D3) nitroglycerin 0.4 mg sublingual 0.4 mg sublingual DIRECTED PRN 12/05/17 05/12/24 tablet (Nitrostat) Chest Pain omeprazole 20 mg capsule,delayed 20 mg PO QAM 12/05/17 05/12/24 release levothyroxine 100 mcg tablet 100 mcg PO DAILYBB 05/18/18 05/12/24 magnesium hydroxide 400 mg/5 mL 5 ml PO DAILY PRN Constipation 12/31/19 05/12/24 oral suspension (Milk of Magnesia) spironolactone 25 mg tablet 12.5 mg PO QAM 12/31/19 05/12/24 rosuvastatin 20 mg tablet 20 mg PO QAM 10/15/20 05/12/24 citalopram 10 mg tablet 10 mg PO DAILY 07/18/21 05/12/24 tramadol 50 mg tablet 50 mg PO BID PRN Pain 07/18/21 05/12/24 azelastine 137 mcg (0.1 %) nasal 2 spray intranasal AMHS 08/02/21 05/12/24 spray ropinirole 2 mg tablet 2 mg PO TID 09/01/21 05/12/24 Magnesium Glycinate 665 665 mg PO DAILY 11/30/21 05/12/24 valacyclovir 1 gram tablet 2,000 mg PO AMPM PRN Cold Sores 11/30/21 05/12/24 acetaminophen 500 mg tablet 500 mg PO Q6H PRN Pain 07/09/23 05/12/24 (Tylenol Extra Strength) albuterol sulfate 90 mcg/actuation 2 puff inhalation Q4H PRN 07/09/23 05/12/24 aerosol inhaler COUGH/SHORT OF BREATH/WHEEZING benzonatate 100 mg capsule 100 mg PO TID PRN cough 07/09/23 05/12/24 buprenorphine 5 mcg/hour weekly 5 mcg transdermal WK 07/09/23 05/12/24 transdermal patch empagliflozin 10 mg tablet 10 mg PO QAM 07/09/23 05/12/24 (Jardiance) lidocaine HCl 4 % (40 mg/mL) 1 applic mucous membrane 07/09/23 05/12/24 mucosal solution DIRECTED PRN MOUTH ULCERS metoclopramide HCl 10 mg tablet 10 mg PO DAILYBB PRN Nausea 07/09/23 05/12/24 (Reglan) nystatin 100,000 unit/mL oral 5 ml mucous membrane QID PRN THRUSH 07/09/23 05/12/24 suspension sucralfate 100 mg/mL oral 10 ml PO QID PRN NEEDED 07/09/23 05/12/24 suspension warfarin 2.5 mg tablet 2.5 mg PO DIRECTED 07/09/23 05/12/24 metoprolol succinate 25 mg 25 mg PO HS 05/12/24 05/12/24 tablet,extended release 24 hr potassium chloride 10 mEq 20 meq PO BID 05/12/24 05/12/24 tablet,extended release torsemide 100 mg tablet 50 mg PO HS 05/12/24 05/12/24 Previous Rx's Medication Instructions Recorded folic acid 1 mg tablet 1 mg PO QAM #30 tabs 05/21/18 Incentive Spirometer #1 ea 09/05/21 Oxygen Home #1 ea 04/08/23 Oxygen Home #2 ea 05/03/23 metoprolol succinate 50 mg 50 mg PO QAM #30 tabs 07/14/23 tablet,extended release 24 hr torsemide 100 mg tablet 100 mg PO DAILY #30 tabs 07/14/23 ipratropium 20 mcg-albuterol 100 1 puff inhalation QID PRN 11/04/23 mcg/actuation mist for inhalation Shortness Of Breath #12 grams (Combivent Respimat) ipratropium 0.5 mg-albuterol 3 mg 3 ml inhalation QID PRN shortness 05/05/24 (2.5 mg base)/3 mL nebulization of breath or wheezing #1,080 mL soln Results & Data (ED) Vital Signs Vital Signs - 24 hr 05/12/24 01:16 05/12/24 01:16 05/12/24 01:16 Temperature 36.8 C Temperature Source Oral Pulse Rate 78 Pulse Rate from SpO2 Sensor Pulse Rhythm Irregular Pulse Strength Normal Respiratory Rate 17 Respiratory Effort / Characteristics Non-Labored Spontaneous Non-Labored Spontaneous Respiratory Depth Normal Normal Respiratory Pattern Regular Blood Pressure 104/60 Blood Pressure Mean 74 Blood Pressure Position Sitting Pulse Oximetry 99 99 Oxygen Delivery Method Nasal Cannula Nasal Cannula Nasal Cannula Oxygen Flow Rate 2 2 2 Sepsis Recent Fever Within 48 Hours No Sepsis New/Unexplained Change in Mental Status No Sepsis Action Taken by Nursing No Action Required 05/12/24 01:19 05/12/24 01:26 05/12/24 01:45 Temperature Temperature Source Pulse Rate 81 75 Pulse Rate from SpO2 Sensor 73 Pulse Rhythm Pulse Strength Respiratory Rate 15 Respiratory Effort / Characteristics Respiratory Depth Respiratory Pattern Blood Pressure 104/60 Blood Pressure Mean 82 Blood Pressure Position Pulse Oximetry 98 Oxygen Delivery Method Oxygen Flow Rate Sepsis Recent Fever Within 48 Hours Sepsis New/Unexplained Change in Mental Status Sepsis Action Taken by Nursing 05/12/24 01:48 05/12/24 01:51 05/12/24 02:04 Temperature Temperature Source Pulse Rate 77 Pulse Rate from SpO2 Sensor 79 Pulse Rhythm Pulse Strength Respiratory Rate 17 Respiratory Effort / Characteristics Respiratory Depth Respiratory Pattern Blood Pressure 100/58 L Blood Pressure Mean 63 Blood Pressure Position Pulse Oximetry 99 97 Oxygen Delivery Method Nasal Cannula Oxygen Flow Rate 2 Sepsis Recent Fever Within 48 Hours Sepsis New/Unexplained Change in Mental Status Sepsis Action Taken by Nursing 05/12/24 02:30 05/12/24 02:45 05/12/24 02:54 Temperature Temperature Source Pulse Rate 80 Pulse Rate from SpO2 Sensor 79 Pulse Rhythm Pulse Strength Respiratory Rate 24 Respiratory Effort / Characteristics Respiratory Depth Respiratory Pattern Blood Pressure 101/53 L 123/54 L Blood Pressure Mean 67 79 Blood Pressure Position Pulse Oximetry 95 Oxygen Delivery Method Oxygen Flow Rate Sepsis Recent Fever Within 48 Hours Sepsis New/Unexplained Change in Mental Status Sepsis Action Taken by Nursing 05/12/24 03:00 Temperature Temperature Source Pulse Rate 79 Pulse Rate from SpO2 Sensor 77 Pulse Rhythm Pulse Strength Respiratory Rate 24 Respiratory Effort / Characteristics Respiratory Depth Respiratory Pattern Blood Pressure 99/55 L Blood Pressure Mean 69 Blood Pressure Position Pulse Oximetry 95 Oxygen Delivery Method Oxygen Flow Rate Sepsis Recent Fever Within 48 Hours Sepsis New/Unexplained Change in Mental Status Sepsis Action Taken by Nursing Laboratory Data 05/12/24 01:46 05/12/24 01:46 Lab Results 05/12/24 Range/Units 01:46 WBC 7.52 (4.8-10.8) K/ul RBC 4.53 (4.20-5.40) M/uL Hgb 12.8 (12.0-16.0) g/dl Hct 40.0 (37.0-47.0) % MCV 88.3 (80.0-100.0) fL MCH 28.3 (25.0-34.0) pg MCHC 32.0 (32.0-36.0) g/dL RDW Std Deviation 49.9 H (36.4-46.3) fL RDW Coeff of Courtney 15.5 H (11.5-14.5) % Plt Count 128 L (130-400) K/uL MPV 10.6 (9.4-12.4) fL Immature Gran % (Auto) 0.4 % Neut % (Auto) 70.4 % Lymph % (Auto) 16.4 % Ware % (Auto) 9.4 % Eos % (Auto) 2.9 % Baso % (Auto) 0.5 % Neut # (Auto) 5.29 (1.40-6.50) K/uL Lymph # (Auto) 1.23 (1.20-3.40) K/uL Ware # (Auto) 0.71 H (0.11-0.59) K/uL Eos # (Auto) 0.22 (0.00-0.50) K/uL Baso # (Auto) 0.04 (0.00-0.20) K/uL Immature Gran # (Auto) 0.03 (0.01-0.20) K/uL PT 29.1 H (9.0-12.0) Seconds INR 3.0 H (0.9-1.1) Sodium 134 L (136-145) mmol/L Potassium 4.2 (3.5-5.1) mmol/L Chloride 99 (98-107) mmol/L Carbon Dioxide 29 (21-32) mmol/L Anion Gap 6 (3-11) BUN 34 H (6-23) mg/dl Creatinine 2.16 H (0.6-1.2) mg/dl Est Cr Clr Drug Dosing 20.8 ml/min eGFR 24.05 BUN/Creatinine Ratio 15.7 (10-20) Glucose 183 H (70-99(Fasting)) mg/dl Calcium 9.6 (8.6-10.3) mg/dl Magnesium 2.7 H (1.7-2.4) mg/dl Total Bilirubin 1.0 (0.2-1.0) mg/dl AST 33 (13-39) U/L ALT 16 (7-52) U/L Alkaline Phosphatase 117 H (34-104) U/L Troponin I High Sens 17.7 H (0-14) pg/ml Total Protein 7.4 (6.0-8.3) gm/dl Albumin 4.0 (3.4-5.0) gm/dl Globulin 3.4 (2.5-4.0) gm/dl Albumin/Globulin Ratio 1.2 (0.9-2) Lipase 39 (11-82) U/L Administered Medications Azelastine HCl (Azelastine Hcl 0.1% Nasal 200 Sprays/27,400 Mcg Btl) 2 sprays NA BID PRISCILA Stop: 06/11/24 08:59 Last Admin: 05/12/24 08:31 Dose: 2 sprays Documented By: GARRETT Citalopram Hydrobromide (Citalopram 20 Mg Tab) 10 mg PO DAILY PRISCILA Stop: 06/11/24 08:59 Last Admin: 05/12/24 08:31 Dose: 10 mg Documented By: GARRETT Folic Acid (Folic Acid 1 Mg Tab) 1 mg PO QAM PRISCILA Stop: 06/11/24 08:59 Last Admin: 05/12/24 08:30 Dose: 1 mg Documented By: GARRETT Insulin Aspart (Insulin Aspart Per Unit Charge) 0 units SC Q6 PRISCILA Stop: 06/11/24 05:36 Last Admin: 05/12/24 12:05 Dose: Not Given Documented By: Admin: 05/12/24 06:07 Dose: Not Given Documented By: ARLETH Levothyroxine Sodium (Levothyroxine Sodium 100 Mcg Tablet) 100 mcg PO DAILYBB [facility] Stop: 06/11/24 06:29 Last Admin: 05/12/24 06:10 Dose: 100 mcg Documented By: ARLETH Metoprolol Succinate (Metoprolol Succ 50mg Ext Rel Tab) 50 mg PO QAM [facility] Stop: 06/11/24 08:59 Last Admin: 05/12/24 08:30 Dose: 50 mg Documented By: GARRETT Miscellaneous (Check Buprenorphine Patch) 1 each N/A QS [facility] Stop: 05/19/24 07:59 Last Admin: 05/12/24 15:37 Dose: 1 each Documented By: Admin: 05/12/24 10:30 Dose: Not Given Documented By: GARRETT Pantoprazole Sodium (Pantoprazole 40 Mg Tab) [facility] [place] Stop: 06/11/24 08:59 Last Admin: 05/12/24 08:31 Dose: 40 mg Documented By: GARRETT Ropinirole HCl (Ropinirole Hcl 2 Mg Tablet) 2 mg PO TID [facility] Stop: 06/11/24 08:59 Last Admin: 05/12/24 14:09 Dose: 2 mg Documented By: Admin: 05/12/24 08:31 Dose: 2 mg Documented By: GARRETT Rosuvastatin Calcium (Rosuvastatin Calcium 20 Mg Tab) 20 [facility] [place] Stop: 06/11/24 08:59 Last Admin: 05/12/24 08:30 Dose: 20 mg Documented By: GARRETT Tramadol HCl (Tramadol Hcl 50 Mg Tablet) 25 - 50 mg PO Q4H PRN PRN Reason: Pain Stop: 06/11/24 04:34 Last Admin: 05/12/24 17:03 Dose: 50 mg Documented By: GARRETT Discontinued Medications Buprenorphine HCl (Buprenorphine 5 Mcg/Hr Tdsy) 1 patch TD NOW ONE Stop: 05/12/24 14:31 Last Admin: 05/12/24 15:37 Dose: 1 patch Documented By: GARRETT Fentanyl Citrate (Fentanyl Citrate Pf 100 Mcg/2 Ml Vial) 50 mcg IV NOW STA Stop: 05/12/24 01:47 Last Admin: 05/12/24 02:01 Dose: 50 mcg Documented By: LORETA Albumin Human (Albumin 25%) 12.5 gm in 50 mls @ 50 mls/hr IV ONE ONE Stop: 05/12/24 04:19 Last Infusion: 05/12/24 05:25 Dose: Infused Documented By: Admin: 05/12/24 04:01 Dose: 50 mls/hr Documented By: LORETA Acetaminophen (Ofirmev) 1,000 mg in 100 mls @ 400 mls/hr IV NOW STA Stop: 05/12/24 04:46 Last Infusion: 05/12/24 06:19 Dose: Infused Documented By: Admin: 05/12/24 05:57 Dose: 400 mls/hr Documented By: ARLETH Miscellaneous (Remove & Waste Butrans Patch 1 Ea Ea) 1 each N/A 1429 ONE Stop: 05/12/24 14:30 Last Admin: 05/12/24 15:37 Dose: Not Given Documented By: LCS Imaging Data Radiologist's Impression: Chest X-Ray 05/12/24 01:46 EXAM: XR chest 1V portable CLINICAL HISTORY: Chest pain, nonspecific TECHNIQUE: An X-ray image of the chest is obtained in AP projection. COMPARISON: 04/29/2024 FINDINGS: Pulmonary Parenchyma: Prominent bronchovascular markings seen bilaterally. Subsegmental atelectatic changes seen bilaterally. No evidence of consolidation. No evidence of pleural effusion or pleural thickening. Heart and Mediastinum: Cardiac size appears enlarged. No mediastinal widening or masses. No hilar or mediastinal lymphadenopathy. Midline sternotomy sutures with cardiac loop recorder seen is status post intervention. Bony Thorax: Bony thorax appears intact without fractures or deformities. Soft Tissues: Soft tissues overlying the chest wall are unremarkable. IMPRESSION: 1. Imaging findings are likely due to cardiomegaly with congestive changes. 2. No significant interval changes. Electronically signed by Vikas Huertas 05-12-2024 02:37 AM Discharge Plan Visit Data Chief Complaint: Chest Pain Stated Complaint: chest pain ED Provider: Tawnya Gautam Discharge Problem: Substernal chest pain, Elevated troponin Patient Disposition: Admitted As Inpatient Discharge Instructions Interventions: ED Discharge Assessment Last Done: 05/12/24 04:40
[2024-05-12] MEDS: fentaNYL citrate PF 100 MCG/2 ML VIAL IV STA (02:01)
[2024-05-12 02:17] LABS: Basophils # (auto) 0.04 K/uL (0.00-0.20); Basophils % (auto) 0.5 %; Eosinophils # (auto) 0.22 K/uL (0.00-0.50); Eosinophils % (auto) 2.9 %; Hemoglobin 12.8 g/dl (12.0-16.0); Immature Granulocytes # (auto) 0.03 K/uL (0.01-0.20); Immature Granulocytes % (auto) 0.4 %; Lymphocytes # (auto) 1.23 K/uL (1.20-3.40); Lymphocytes % (auto) 16.4 %; Mean Corpuscular Hemoglobin 28.3 pg (25.0-34.0); Mean Corpuscular Volume 88.3 fL (80.0-100.0); Mean Platelet Volume 10.6 fL (9.4-12.4); Monocytes # (auto) 0.71 K/uL (0.11-0.59); Monocytes % (auto) 9.4 %; Neutrophils # (auto) 5.29 K/uL (1.40-6.50); Neutrophils % (auto) 70.4 %; Platelet Count 128 K/uL (130-400); RDW Coefficient of Variation 15.5 % (11.5-14.5); RDW Standard Deviation 49.9 fL (36.4-46.3); Red Blood Count 4.53 M/uL (4.20-5.40); White Blood Count 7.52 K/ul (4.8-10.8)
[2024-05-12 02:29] LABS: Albumin Globulin Ratio 1.2 (0.9-2); BUN Creatinine Ratio 15.7 (10-20); Calcium 9.6 mg/dl (8.6-10.3); Creatinine Clr Calc Pharmacy 20.8 ml/min; Globulin 3.4 gm/dl (2.5-4.0); Potassium 4.2 mmol/L (3.5-5.1); Total Protein 7.4 gm/dl (6.0-8.3)
[2024-05-12 02:34] LABS: Troponin I High Sensitivity 17.7 pg/ml (0-14)
[2024-05-12 02:36] LABS: Prothrombin Time 29.1 Seconds (9.0-12.0)
--- NOTE | 2024-05-12 02:37 | XRay Report ---
EXAM: XR chest 1V portable CLINICAL HISTORY: Chest pain, nonspecific TECHNIQUE: An X-ray image of the chest is obtained in AP projection. COMPARISON: 04/29/2024 FINDINGS: Pulmonary Parenchyma: Prominent bronchovascular markings seen bilaterally. Subsegmental atelectatic changes seen bilaterally. No evidence of consolidation. No evidence of pleural effusion or pleural thickening. Heart and Mediastinum: Cardiac size appears enlarged. No mediastinal widening or masses. No hilar or mediastinal lymphadenopathy. Midline sternotomy sutures with cardiac loop recorder seen is status post intervention. Bony Thorax: Bony thorax appears intact without fractures or deformities. Soft Tissues: Soft tissues overlying the chest wall are unremarkable. IMPRESSION: 1. Imaging findings are likely due to cardiomegaly with congestive changes. 2. No significant interval changes. Electronically signed by Vikas Huertas 05-12-2024 02:37 AM
--- NOTE | 2024-05-12 03:17 | History & Physical Report ---
Date of Service May 12, 2024 Assessment & Plan (1) Chest pain: Plan: Chest pain with mild troponin elevation possible ACS History CAD chronic diastolic heart failure (EF 55%, TTE 2024), some congestion and x-ray hx SSS/rheumatic heart disease/history of mechanical MVR on Coumadin, INR therapeutic history of Linq insertion severe TR status post recent Triclip procedure (02/2024, hypertension, BP on the lower side hyperlipidemia, on statin Rx history embolic CVA as per records COPD, not in acute exacerbation esophageal dysmotility as per records DM2 diet-controlled, well-controlled as of recent hemoglobin A1c of 6.25 February 2024 hypothyroidism, TSH elevated from 2 weeks ago CRI, creatinine at baseline chronic pain on Suboxone OBS Admit to PCU Follow troponin Cardiology consult re: chest pain, history CAD N.p.o., hold Coumadin in anticipation of ischemic workup if warranted ISS BG goal 1 10-1 40 Recheck outpatient TSH next month DVT prophylaxis. Coumadin INR goal between 2.5-3.5 if okay with cardiology Full code Text document was generated using [employer] voice recognition software. It may contain grammatical or spelling errors. Kindly contact undersigned for clarification of any documentation item in question. History of Present Illness Chief Complaint: Chest pain Primary Care Provider: Shara Ray MD History obtained from patient and records. Medical history significant for chronic diastolic heart failure (EF 55%, TTE 2024), SSS/rheumatic heart disease/history of mechanical MVR on Coumadin, history of Linq insertion, CAD as per records, severe TR status post recent Triclip procedure, hypertension, hyperlipidemia, history embolic CVA as per records, COPD, esophageal dysmotility as per records, DM2 diet-controlled, hypothyroidism, hyperparathyroidism as per records, CRI (baseline creatinine 1 .6-2 as per records), RLS, chronic pain on Suboxone. Last confinement at [facility] March 13 to March 23, 2024 under cardiology service for severe TR status post Tri clip procedure. New onset dysphagia during confinement. Esophageal dysmotility on esophagram. Outpatient GI referral recommended by discharging provider. Recent [facility] ER visit 2 weeks ago for intractable cough symptoms BioFire positive for rhinovirus.. NSVT episodes at the ER. Patient molecular biologist recommended increasing home Toprol XL to 50 mg in the morning and 25 mg at night. Patient discharged on prednisone course for respiratory tract infection. Augmentin later added to patient regimen by PCP. Improved cough symptoms. Patient experienced substernal pain going to her jaw last night similar to heart attack episodes. Compliant with home meds. No unusual cough symptoms. Some SOB. Patient denies fluid retention. No improvement with nitroglycerin and neb treatment administered at home. EMS called to patient's home. Improved discomfort after Fentanyl administration and brought to ER. 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 Allergies Allergy/AdvReac Type Severity Reaction Status Date / Time budesonide Allergy Severe could not Verified 05/12/24 04:17 breath hydroxyzine Allergy Severe DYSTONIA Verified 05/12/24 04:17 prochlorperazine Allergy Severe NUCHAL Verified 05/12/24 04:17 DYSTONIA promethazine Allergy Severe NUCHAL Verified 05/12/24 04:17 DYSTONIA enoxaparin [From Lovenox] Allergy Unknown ON Verified 05/12/24 04:17 [facility] Inhibitors AdvReac Intermediate COUGH Verified 05/12/24 04:17 gabapentin AdvReac Intermediate CONFUSION/D Verified 05/12/24 04:17 ROWSY lisinopril AdvReac Intermediate Cough Verified 05/12/24 04:17 metformin AdvReac Intermediate DIARRHEA Verified 05/12/24 04:17 oxycodone AdvReac Intermediate NUMB ALL Verified 05/12/24 04:17 OVER parsley AdvReac Intermediate AGITATION Verified 05/12/24 04:17 tetracycline AdvReac Intermediate NAUSEA/VOMI Verified 05/12/24 04:17 TING steroids Allergy Mild Unknown Uncoded 05/12/24 04:17 NAUSEA MEDICINES Allergy Unknown SEE NOTE Uncoded 05/12/24 04:17 BELOW Home Medications Medication Instructions Recorded Confirmed Type cholecalciferol (vitamin D3) 25 1,000 unit PO Q OTHER DAY 12/05/17 05/12/24 History mcg (1,000 unit) capsule (Vitamin D3) nitroglycerin 0.4 mg sublingual 0.4 mg sublingual DIRECTED PRN 12/05/17 05/12/24 History tablet (Nitrostat) Chest Pain omeprazole 20 mg capsule,delayed 20 mg PO QAM 12/05/17 05/12/24 History release levothyroxine 100 mcg tablet 100 mcg PO DAILYBB 05/18/18 05/12/24 History folic acid 1 mg tablet 1 mg PO QAM #30 tabs 05/21/18 05/12/24 Rx magnesium hydroxide 400 mg/5 mL 5 ml PO DAILY PRN Constipation 12/31/19 05/12/24 History oral suspension (Milk of Magnesia) spironolactone 25 mg tablet 12.5 mg PO QAM 12/31/19 05/12/24 History rosuvastatin 20 mg tablet 20 mg PO QAM 10/15/20 05/12/24 History citalopram 10 mg tablet 10 mg PO DAILY 07/18/21 05/12/24 History tramadol 50 mg tablet 50 mg PO BID PRN Pain 07/18/21 05/12/24 History azelastine 137 mcg (0.1 %) nasal 2 spray intranasal AMHS 08/02/21 05/12/24 History spray ropinirole 2 mg tablet 2 mg PO TID 09/01/21 05/12/24 History Incentive Spirometer #1 ea 09/05/21 05/12/24 Rx Magnesium Glycinate 665 665 mg PO DAILY 11/30/21 05/12/24 History valacyclovir 1 gram tablet 2,000 mg PO AMPM PRN Cold Sores 11/30/21 05/12/24 History Oxygen Home #1 ea 04/08/23 05/12/24 Rx Oxygen Home #2 ea 05/03/23 05/12/24 Rx acetaminophen 500 mg tablet 500 mg PO Q6H PRN Pain 07/09/23 05/12/24 History (Tylenol Extra Strength) albuterol sulfate 90 mcg/actuation 2 puff inhalation Q4H PRN 07/09/23 05/12/24 History aerosol inhaler COUGH/SHORT OF BREATH/WHEEZING benzonatate 100 mg capsule 100 mg PO TID PRN cough 07/09/23 05/12/24 History buprenorphine 5 mcg/hour weekly 5 mcg transdermal WK 07/09/23 05/12/24 History transdermal patch empagliflozin 10 mg tablet 10 mg PO QAM 07/09/23 05/12/24 History (Jardiance) lidocaine HCl 4 % (40 mg/mL) 1 applic mucous membrane 07/09/23 05/12/24 History mucosal solution DIRECTED PRN MOUTH ULCERS metoclopramide HCl 10 mg tablet 10 mg PO DAILYBB PRN Nausea 07/09/23 05/12/24 History (Reglan) nystatin 100,000 unit/mL oral 5 ml mucous membrane QID PRN THRUSH 07/09/23 05/12/24 History suspension sucralfate 100 mg/mL oral 10 ml PO QID PRN NEEDED 07/09/23 05/12/24 History suspension warfarin 2.5 mg tablet 2.5 mg PO DIRECTED 07/09/23 05/12/24 History metoprolol succinate 50 mg 50 mg PO QAM #30 tabs 07/14/23 05/12/24 Rx tablet,extended release 24 hr torsemide 100 mg tablet 100 mg PO DAILY #30 tabs 07/14/23 05/12/24 Rx ipratropium 20 mcg-albuterol 100 1 puff inhalation QID PRN 11/04/23 05/12/24 Rx mcg/actuation mist for inhalation Shortness Of Breath #12 grams (Combivent Respimat) ipratropium 0.5 mg-albuterol 3 mg 3 ml inhalation QID PRN shortness 05/05/24 05/12/24 Rx (2.5 mg base)/3 mL nebulization of breath or wheezing #1,080 mL soln metoprolol succinate 25 mg 25 mg PO HS 05/12/24 05/12/24 History tablet,extended release 24 hr potassium chloride 10 mEq 20 meq PO BID 05/12/24 05/12/24 History tablet,extended release torsemide 100 mg tablet 50 mg PO HS 05/12/24 05/12/24 History Past Med/Surg History Problem List (Updated 05/12/24 @ 04:39 by Justin Perez MD) Chest pain Regular wide QRS complex tachycardia (Acute) Rhinovirus infection (Acute) Cough (Acute) Acute kidney injury superimposed on chronic kidney disease (Acute) Acute exacerbation of CHF (congestive heart failure) (Acute) Restrictive lung disease CHF (congestive heart failure) (Acute) Cough (Acute) Acute dyspnea (Acute) Acute foot pain (Acute) Supratherapeutic INR (Acute) Exertional shortness of breath Upper airway cough syndrome Chronic cough Occult blood positive stool H/O mitral valve replacement with mechanical valve Rheumatic heart disease Permanent atrial fibrillation History of CVA (cerebrovascular accident) Chronic diastolic CHF (congestive heart failure) Nontraumatic intramuscular hematoma Hematoma of left thigh (Acute) Mechanical heart valve present (Acute) Encounter for pre-operative examination Asthmatic bronchitis Acute bronchitis Pleural effusion Abnormal chest CT Dysphagia Pneumonia Acute on chronic diastolic HF (heart failure) Shortness of breath (Acute) Atypical chest pain (Acute) Hypoxia (Acute) Chronic heart failure with preserved ejection fraction (HFpEF) History of loop recorder Recurrent syncope Syncope (Acute) UTI (urinary tract infection) DVT prophylaxis Hypothyroidism CKD (chronic kidney disease), stage III Recurrent syncope (Acute) Contusion of scalp (Acute) Hypokalemia (Acute) Dehydration (Acute) Substernal chest pain (Acute) Elevated INR (Acute) Status post total right knee replacement Knee pain Tricompartment degenerative joint disease of knee Knee effusion, left (Acute) A-fib (Chronic) Mitral valve replaced (Chronic) Hemangioma (Acute) Syncope (Acute) Closed head injury (Acute) Forehead laceration (Acute) Burn of hand, right (Acute) VICKY (acute kidney injury) (Acute) Pre-syncope Acute renal failure Severe protein-calorie malnutrition Gant classified according to extent of body surface involved Atrial fibrillation Coronary artery disease Mechanical heart valve present History of CVA (cerebrovascular accident) Diabetes type 2, controlled Hypothyroidism DVT prophylaxis Discharge planning issues Hematoma Rheumatic disease of heart valve H/O mitral valve replacement with mechanical valve Leg edema Post-concussion headache Slurred speech (Acute) Numbness (Acute) Encounter for pre-operative examination Degenerative joint disease of left knee Acute blood loss as cause of postoperative anemia DVT prophylaxis S/P TKR (total knee replacement) Pain, joint, knee, left Hemarthrosis involving knee joint Discharge planning issues Anemia chronic; baseline hgb 9-10 range per chart review Medical History A-fib Anemia Anxiety CKD (chronic kidney disease), stage III Diabetes Encounter for pre-operative examination GERD (gastroesophageal reflux disease) History of blood transfusion HTN (hypertension) Hx of myocardial infarction Hyperlipidemia Hypothyroidism Migraines Mitral valve disease Osteoarthritis Restless legs syndrome TIA (transient ischemic attack) Surgical History H/O radioactive iodine thyroid ablation H/O: hysterectomy History of cardiac cath History of colonoscopy History of tonsillectomy and adenoidectomy History of total left knee replacement Hx of appendectomy Hx of cholecystectomy Hx of mitral valve replacement Hx of tubal ligation Family History Uncle , of [place] in his 40s Coronary heart disease Social History Smoking Status: Never smoker Second Hand Exposure: No; Do You Dip or Chew Tobacco: No; Hx Alcohol Use: Yes Alcohol type: wine Hx Substance Use: No Preferred Language: Mongolian Communication Ability: Effective Communication Ability Comment: speech impediment, easily understood [employer] Education Teacher Required: No Beliefs That Will Affect Care: None marital status: Single Current Living Situation: Alone Current Living Situation Comment: from home with vp care management. current occupational status: disabled How many Children do You have: 0 Feels Safe at Home: Yes Safety Concerns: Feels Safe At This Time Assistive Devices: Oxygen - at Night and Walker Review of Systems Review of Systems: As per HPI, all other systems reviewed and negative Physical Exam Physical Exam: GENERAL: Comfortable, slightly anxious, no respiratory distress SKIN: Normal color, warm HEENT: [place] palpebral conjunctivae, no ptosis, dry buccal mucosa NECK : Supple, no tenderness CHEST : CTA, no tenderness HEART : Irregular, mechanical murmur ABDOMEN: Some distention, nontender EXTREMITIES : Minimal LE swelling, no LE tenderness, no other conspicuous deformities noted NEUROLOGIC : Coherent, no facial asymmetry, mild dysarthria (chronic as per patient ), no other gross focality Results & Data Results & Data Vital Signs (Past 12 Hours) Vital Signs Temp Pulse Resp BP Pulse Ox O2 Del Method O2 Flow Rate 05/12/24 02:30 101/53 L 05/12/24 02:04 100/58 L 05/12/24 01:51 77 17 97 05/12/24 01:48 99 Nasal Cannula 2 05/12/24 01:45 75 15 98 05/12/24 01:26 81 05/12/24 01:19 104/60 05/12/24 01:16 99 Nasal Cannula 2 05/12/24 01:16 36.8 C 78 17 104/60 99 Nasal Cannula 2 05/12/24 01:16 Nasal Cannula 2 Laboratory Results Laboratory Results WBC 7.52 K/ul (4.8-10.8) 05/12/24 01:46 RBC 4.53 M/uL (4.20-5.40) 05/12/24 01:46 Hgb 12.8 g/dl (12.0-16.0) 05/12/24 01:46 Hct 40.0 % (37.0-47.0) 05/12/24 01:46 MCV 88.3 fL (80.0-100.0) 05/12/24 01:46 MCH 28.3 pg (25.0-34.0) 05/12/24 01:46 MCHC 32.0 g/dL (32.0-36.0) 05/12/24 01:46 RDW Std Deviation 49.9 fL (36.4-46.3) H 05/12/24 01:46 RDW Coeff of Courtney 15.5 % (11.5-14.5) H 05/12/24 01:46 Plt Count 128 K/uL (130-400) L 05/12/24 01:46 MPV 10.6 fL (9.4-12.4) 05/12/24 01:46 Immature Gran % (Auto) 0.4 % 05/12/24 01:46 Neut % (Auto) 70.4 % 05/12/24 01:46 Lymph % (Auto) 16.4 % 05/12/24 01:46 Reagan % (Auto) 9.4 % 05/12/24 01:46 Eos % (Auto) 2.9 % 05/12/24 01:46 Baso % (Auto) 0.5 % 05/12/24 01:46 Neut # (Auto) 5.29 K/uL (1.40-6.50) 05/12/24 01:46 Lymph # (Auto) 1.23 K/uL (1.20-3.40) 05/12/24 01:46 Reagan # (Auto) 0.71 K/uL (0.11-0.59) H 05/12/24 01:46 Eos # (Auto) 0.22 K/uL (0.00-0.50) 05/12/24 01:46 Baso # (Auto) 0.04 K/uL (0.00-0.20) 05/12/24 01:46 Immature Gran # (Auto) 0.03 K/uL (0.01-0.20) 05/12/24 01:46 PT 29.1 Seconds (9.0-12.0) H 05/12/24 01:46 INR 3.0 (0.9-1.1) H 05/12/24 01:46 Sodium 134 mmol/L (136-145) L 05/12/24 01:46 Potassium 4.2 mmol/L (3.5-5.1) 05/12/24 01:46 Chloride 99 mmol/L (98-107) 05/12/24 01:46 Carbon Dioxide 29 mmol/L (21-32) 05/12/24 01:46 Anion Gap 6 (3-11) 05/12/24 01:46 BUN 34 mg/dl (6-23) H 05/12/24 01:46 Creatinine 2.16 mg/dl (0.6-1.2) H 05/12/24 01:46 Est Cr Clr Drug Dosing 20.8 ml/min 05/12/24 01:46 eGFR 24.05 05/12/24 01:46 BUN/Creatinine Ratio 15.7 (10-20) 05/12/24 01:46 Glucose 183 mg/dl (70-99(Fasting)) H 05/12/24 01:46 Calcium 9.6 mg/dl (8.6-10.3) 05/12/24 01:46 Total Bilirubin 1.0 mg/dl (0.2-1.0) 05/12/24 01:46 AST 33 U/L (13-39) 05/12/24 01:46 ALT 16 U/L (7-52) 05/12/24 01:46 Alkaline Phosphatase 117 U/L (34-104) H 05/12/24 01:46 Troponin I High Sens 17.7 pg/ml (0-14) H 05/12/24 01:46 Total Protein 7.4 gm/dl (6.0-8.3) 05/12/24 01:46 Albumin 4.0 gm/dl (3.4-5.0) 05/12/24 01:46 Globulin 3.4 gm/dl (2.5-4.0) 05/12/24 01:46 Albumin/Globulin Ratio 1.2 (0.9-2) 05/12/24 01:46 Lipase 39 U/L (11-82) 05/12/24 01:46 Impressions Chest X-Ray 05/12/24 01:46 EXAM: XR chest 1V portable CLINICAL HISTORY: Chest pain, nonspecific TECHNIQUE: An X-ray image of the chest is obtained in AP projection. COMPARISON: 04/29/2024 FINDINGS: Pulmonary Parenchyma: Prominent bronchovascular markings seen bilaterally. Subsegmental atelectatic changes seen bilaterally. No evidence of consolidation. No evidence of pleural effusion or pleural thickening. Heart and Mediastinum: Cardiac size appears enlarged. No mediastinal widening or masses. No hilar or mediastinal lymphadenopathy. Midline sternotomy sutures with cardiac loop recorder seen is status post intervention. Bony Thorax: Bony thorax appears intact without fractures or deformities. Soft Tissues: Soft tissues overlying the chest wall are unremarkable. IMPRESSION: 1. Imaging findings are likely due to cardiomegaly with congestive changes. 2. No significant interval changes. Electronically signed by Vikas Huertas 05-12-2024 02:37 AM Diagnostic Findings EKG as per my interpretation :Rate 80, A-fib, LAD, LAFB, LVH, T wave abnormalities lateral leads
[2024-05-12] MEDS ORDERED: oxyCODONE HCL IR 5 MG TAB (IMMEDIATE RELEASE) PO PRN (03:20)
[2024-05-12] MEDS ORDERED: NITROGLYCERIN SL 0.4 MG/TAB TAB SL PRN ×2 (03:20→04:34)
[2024-05-12 03:47] LABS: Magnesium 2.7 mg/dl (1.7-2.4)
[2024-05-12] MEDS: ALBUMIN 25% 12.5 GM/50 ML VIAL IV ONE (04:01)
[2024-05-12] MEDS ORDERED: IPRATROPIUM BROMIDE/ALBUTEROL respimat INH INH PRN (04:32)
[2024-05-12] MEDS ORDERED: ACETAMINOPHEN 500 MG TAB PO PRN (04:32)
[2024-05-12] MEDS ORDERED: SUCRALFATE 1 GM/10 ML UDC PO PRN (04:32)
[2024-05-12] MEDS ORDERED: METOCLOPRAMIDE HCL INJ 5 MG/ML 2 ML VIAL IV PRN (04:35)
[2024-05-12] MEDS ORDERED: GLUCOSE 40% GEL 15 GM TUBE PO PRN (05:37)
[2024-05-12] MEDS ORDERED: GLUCOSE 10 TAB/TUBE PO PRN (05:37)
[2024-05-12] MEDS ORDERED: DEXTROSE 50% 50 ML SYRINGE IV PRN (05:37)
[2024-05-12] MEDS ORDERED: GLUCAGON FOR INJ 1 MG VIAL SQ PRN (05:37)
[2024-05-12] MEDS ORDERED: CARBOHYDRATES FOR HYPOGLYCEMIA PO PRN (05:37)
[2024-05-12] MEDS ORDERED: Ipratropium HFA Inhaler (Combivent Respimat P&T Subs) INH PRN (05:53)
[2024-05-12] MEDS ORDERED: Albuterol HFA 8 GM Inhaler (Combivent Respimat P&T Subs) INH PRN (05:53)
[2024-05-12] MEDS: ACETAMINOPHEN 1,000 MG/100 ML VIAL IV STA (05:57)
[2024-05-12] MEDS: INSULIN ASPART PER UNIT CHARGE SC SCH ×2 (06:07→20:56)
[2024-05-12] MEDS: LEVOTHYROXINE SODIUM 100 MCG TABLET PO SCH (06:10)
[2024-05-12] MEDS: ROSUVASTATIN CALCIUM 20 MG TAB PO SCH (08:30)
[2024-05-12] MEDS: METOPROLOL SUCC 50MG EXT REL TAB PO SCH (08:30)
[2024-05-12] MEDS: FOLIC ACID 1 MG TAB PO SCH (08:30)
[2024-05-12] MEDS: rOPINIRole HCL 2 MG TABLET PO SCH (08:31)
[2024-05-12] MEDS: PANTOprazole 40 MG TAB PO SCH (08:31)
[2024-05-12] MEDS: CITALOPRAM 20 MG TAB PO SCH (08:31)
[2024-05-12] MEDS: AZELASTINE HCL 0.1% NASAL 200 SPRAYS/27,400 MCG BTL SCH (08:31)
--- OUTSIDE RECORDS SUMMARY | 2024-05-12 09:02 | External Medical Summary | Summary of Care ---
Author Name Unknown Organization [facility] [address] [place] [address] Phone [phone] Care Team Providers Care Engineer Name Role Phone Shara Ray MD Primary Care Provide r Reason for Visit * Reason Comments Dosage Adjustment Via Phone (anticoag Cl inic) Encounter Details Date Type Department Care Team (Late st Contact Info) Description 05/11/2024 6:00 PM EDT An[facility], [address] [place] [id number] [place] [id number] intermediate current use of anticoagulant therapy*; History of TIA (transient ischemic attack); S/P mitral valve replacement Allergies Active Allergy Reactions Criticality Noted Date Comments Vincent Inhibitors 11/13/2005 cough Budesonide Other (Please comment) High 06/13/2022 trouble breathing Gabapentin Neuro complications (Please comment) 01/08/2020 confusion Hydroxyzine High 03/31/2021 Other reaction(s): DYSTONIA Enoxaparin 08/23/2021 Metformin High 03/31/2021 Other reaction(s): DIARRHEA Oxycodone 11/11/2018 " numb all over" Phenothiazines Unknown 10/08/2000 Nuchal dystonia Prochlorperazine Neuro complications (Please comment) 10/08/2000 dystonia Promethazine 03/10/2024 Tetracycline Nausea/vomiting 10/08/2000 documented as of this encounter (statuses as of 05/12/2024) Medications acetaminophen (TYLENOL) 500 MG Tablet Take 1 Tablet by mouth every 6 hours as needed for Pain. Active milk of magnesia (MOM) 400 MG/5ML suspension Take 15 mL by mouth daily as needed for Constipation. Active Magnesium Glycinate 665 MG Oral CapsuleIndications :Restless legs syndrome One daily 100 Capsule 1 01/24/20 22 Active Lidocaine HCl 4 % External Solution Apply topically to affected area once for 1 dose. Apply to mouth ulcers as needed 50 mL 12/07/19 23 Active Nystatin [id number] UNIT/ML Mouth/Throat SuspensionIndicati ons:Thrush Swish and swallow 5 mL in the morning and 5 mL at noon and 5 mL in the evening and 5 mL before bedtime. For thrush.. 240 mL 1 02/15/20 23 Active traMADol HCl 50 MG Oral Tablet (Ultram)Indication s:Generalized osteoarthritis,Pos t-traumatic osteoarthritis of right knee,Closed nondisplaced fracture of left tibial tuberosity with routine healing Take 1 Tablet by mouth 2 times a day as needed for Pain, Severe. 60 Tablet 03/11/2023 7:46 AM EST 03/08/19 24 Active Additional Information Patient taking differently:50 mg OralQID PRN, Pain, Severe, Reported on 05/08/2024 Buprenorphine 5 MCG/HR Transdermal Patch Weekly (Butrans) Apply 1 patch to skin once a week as directed 05/31/19 24 Active Nebulizer/Tubing/M outhpiece Kit Use as directed 1 Kit 1 06/04/19 24 Active oxygen IN GAS Use 2 L/min(Oxygen) as directed at bedtime. Ordered by pulmonary in Mar 2023. Also takes as needed during day Active valACYclovir HCl 1 GM Oral Tablet (Valtrex)Indicatio ns:Cold sore Take 2 Tablets by mouth in the morning and 2 Tablets before bedtime. for cold sores. 4 Tablet 11 06/19/19 24 Active D3-1000 25 MCG (1000 UT) Oral Capsule (Cholecalciferol) Take 1 Capsule by mouth every other day. 07/02/19 24 Active Blood Glucose Monitor System w/Device KitIndications:Typ e 2 diabetes mellitus with stage 3b chronic kidney disease, without long-term current use of insulin ([facility]) Check your glucose daily as needed 1 Kit 07/25/19 Active LancetsIndications :Type 2 diabetes mellitus with stage 3b chronic kidney disease, without long-term current use of insulin ([facility]) Use as directed. 100 Each 07/25/19 Active Glucose Blood In Vitro StripIndications:T ype 2 diabetes mellitus with stage 3b chronic kidney disease, without long-term current use of insulin ([facility]) Use as directed. 100 Strip 07/25/19 24 Active Albuterol Sulfate HFA 108 (90 Base) MCG/ACT Inhalation Aerosol Solution INHALE TWO PUFFS BY MOUTH EVERY MORNING, TWO PUFFS EVERY EVENING AND 2 puffs EVERY 4 HOURS NEEDED FOR WORSENING COUGH, CHEST TIGHTNESS, FOR WHEEZING OR FOR SHORTNESS OF BREATH 54 g 2 04/21/2024 6:10 PM EST 07/30/19 24 025 Active Omeprazole 20 MG Oral Capsule Delayed Release (PriLOSEC)Indicati ons:Encounter for long-term (current) use of medications,Gastro esophageal reflux disease with esophagitis Take 1 Capsule by mouth in the morning. 100 Capsule 3 02/18/2024 12:56 PM EST 08/05/19 24 Active Additional Information Patient taking differently:20 mg OralQ-1999, Reported on 05/08/2024 rOPINIRole HCl 2 MG Oral Tablet (Requip)Indication s:Restless legs syndrome Take 1 Tablet by mouth in the morning and 1 Tablet at noon and 1 Tablet before bedtime. 300 Tablet 3 05/07/2024 2:51 PM EDT 10/22/19 24 Active Additional Information Patient taking differently:2 mg OralHS, Reported on 05/08/2024 Combivent Respimat 20-100 MCG/ACT Inhalation Aerosol Solution (Ipratropium-Albut keila) inhale 1 puff by mouth four times daily As Needed for Shortness Of Breath 12 g 2 05/02/2024 8:57 AM EDT 11/04/19 24 Active Metoclopramide HCl 10 MG Oral Tablet (Reglan)Indication s:Nausea TAKE ONE TABLET BY MOUTH EVERY MORNING 30 MINUTES BEFORE A MEAL 100 Tablet 1 02/24/2024 6:15 AM EST 11/12/19 24 025 Active Rosuvastatin Calcium 10 MG Oral Tablet (Crestor) Take 1 Tablet by mouth in the morning. 100 Tablet 1 02/25/2024 5:12 PM EST 11/25/19 24 Active Folic Acid 1 MG Oral TabletIndications: Mild protein-calorie malnutrition (HCC) TAKE ONE TABLET BY MOUTH EVERY MORNING 100 Tablet 1 04/20/2024 3:59 PM EST 01/20/20 24 025 Active Nitroglycerin 0.4 MG Sublingual Tablet Sublingual (Nitrostat)Indicat ions:Old myocardial infarct,Atrial fibrillation (HCC),HTN, goal to be determined PLACE 1 TABLET UNDER THE TONGUE EVERY 5 MINUTES UP TO 3 DOSES NEEDED FOR CHEST PAIN. IF NO RELIEF CALL 911 OR GO TO ER 75 Tablet 02/17/2024 12:34 PM EST 02/15/20 24 Active Warfarin Sodium 2.5 MG Oral Tablet (Coumadin) Take as instructed by coumadin pharmacist/clin ic 180 Tablet 1 03/23/19 25 Active Torsemide 100 MG Oral Tablet (Demadex) Take 1 Tablet by mouth in the morning. 90 Tablet 3 04/08/2024 6:43 PM EST 03/31/19 25 Active Additional Information Patient taking differently:100 mg Oral Daily(AM),100 mg in the AM & 50 mg in the afternoon, Reported on 05/08/2024 Citalopram Hydrobromide 10 MG Oral Tablet (CeleXA)Indication s:BOBBY (generalized anxiety disorder) Take 1 Tablet by mouth in the morning. 90 Tablet 1 04/16/19 25 Active metOLazone 2.5 MG Oral Tablet (Zaroxolyn) Take 1 Tablet by mouth in the morning. As needed directed by Cardiology or Nephrology. Active Spironolactone 12.5 MG OR TABS Take by mouth daily. Active Empagliflozin 10 MG Oral Tablet (Jardiance) Take 1 Tablet by mouth in the morning. 90 Tablet 3 04/23/19 25 Active Levothyroxine Sodium 100 MCG Oral Tablet (Levoxyl)Indicatio ns:Hypothyroidism, postablative TAKE ONE TABLET by MOUTH DAILY FIRST THING IN THE MORNING AT LEAST 30 MINUTES PRIOR TO BREAKFAST OR OTHER MEDS 100 Tablet 1 04/30/2024 1:51 PM EDT 04/28/19 25 Active Potassium Chloride Jodie ER 10 MEQ Oral Tablet Extended ReleaseIndications :Hypokalemia Take 2 Tablets by mouth in the morning and 2 Tablets before bedtime. 540 Tablet 3 05/01/19 25 Active Amoxicillin-Pot Clavulanate 875-125 MG Oral Tablet (Augmentin)Indicat ions:Bronchitis, complicated Take 1 Tablet by mouth in the morning and 1 Tablet before bedtime. Do all this for 10 days. 20 Tablet 05/05/19 25 025 Active guaiFENesin-Codein e 100-10 MG/5ML Oral Solution (Robitussin AC)Indications:Bro nchitis, complicated Take 5 mL by mouth 3 times a day as needed for Cough. 120 mL 05/06/19 25 Active Ipratropium-Albute rol 0.5-2.5 (3) MG/3ML Inhalation Solution (Duoneb) inhale one vial via nebulizer four times daily as needed for shortness of breath or wheezing 1080 mL 05/07/2024 2:51 PM EDT 05/06/19 25 Active Azelastine HCl 0.1 % Nasal Solution (Astelin) ADMINISTER TWO SPRAYS INto both nostrils in THE MORNING AND TWO SPRAYS BEFORE BEDTIME 30 mL 2 05/11/2024 12:05 PM EDT 05/09/19 25 026 Active Metoprolol Succinate ER 25 MG Oral Tablet Extended Release 24 Hour (toPROL XL) Take 1 Tablet by mouth at bedtime. 04/30/19 25 Active Metoprolol Succinate ER 50 MG Oral Tablet Extended Release 24 Hour (toPROL XL) Take 1 Tablet by mouth in the morning. 90 Tablet 1 05/10/19 25 Active Benzonatate 100 MG Oral CapsuleIndications :Cough Take 1 Capsule by mouth 3 times a day as needed for Cough. 30 Capsule 1 05/12/19 25 Active documented as of this encounter (statuses as of 05/12/2024) Active Problems Problem Noted Date Diagnosed Date S/P tricuspid valve repair 04/09/2024 Hypothyroidism 04/09/2024 Hyperparathyroidism 04/09/2024 Moderate tricuspid regurgitation 03/23/2024 Esophageal dysmotility 03/23/2024 Chronic right-sided heart failure 03/20/2024 Atherosclerosis of [place] ronary artery of [place] heart without angina pectoris 04/03/2023 Major depressive disorder, recurrent, moderate 0 04/03/2023 Assessment & Plan (04/03/2023 10:44 PM EST): Mood stable on current dose celexa Other persistent atrial fibrillation 04/03/2023 Assessment & Plan (04/03/2023 10:44 PM EST): Rate controlled Continue coumadin Iron deficiency anemia 09/21/2022 Assessment & Plan (12/07/2022 1:58 PM EDT): Had reaction to IV iron (things looked yellow and she passed out). Has another appt with infusion clinic in Dec 2022. They will determine if there is anything else that she can take. Restless leg syndrome 09/21/2022 Assessment & Plan (12/07/2022 2:01 PM EDT): Stable on Requip Closed nondisplaced fracture of left tibial tuberosity with routine healing 12/12/2021 Controlled substance agreement signed 12/05/2021 Hematoma of leg, left, subsequent encounter 09/2021 Overview (12/05/2021): [facility] ER ulstrasound shows hematoma calf, INR 4.2, hgb 9.9 Other injury of unspecified body region, subsequent encounter 08/31/2021 Overview (11/28/2021): Intramuscular hematoma Assessment & Plan (09/01/2021 3:40 PM EDT): Small hematoma noted L lateral hip. Pen markings noted. Edema well within marking. Coumadin restarted. Due for INR on 09/04 Chronic cough 07/07/2021 Overview (07/07/2021): Since 03/2021 Generalized anxiety disorder 06/26/2021 Assessment & Plan (04/03/2023 10:57 PM EST): Stable on celexa Assessment & Plan (09/01/2021 3:59 PM EDT): Doing well on celexa Hypertensive heart and kidne y disease with chronic diastolic congestive heart failure and stage 3b chronic kidney disease 04/26/2021 Assessment & Plan (04/03/2023 10:38 PM EST): "RED FLAG" HF Symptoms: Leg Swelling (Examples: [...] Comments) Remote Patient Monitoring Vendor[place] [facility] [place]s): Connected Scale Self - Management Plan Add additional 1/2 tab to afternoon dose of Torsemide Exacerbation Plan Anticipated IV Lasix dose: 200 mg Additional Comments: Increase lasix to 150mg x 3 days Continue to monitor weights daily Assessment & Plan (12/07/2022 1:55 PM EDT): Current Status : "Stable" for patient / [...] dose: 200 mg BMP Pro-BNP Chest X-Ray Assessment & Plan (09/01/2021 3:33 PM EDT): Euvolemic today. Last Cr at baseline. BP stable Continue Lasix 40 mg mon, wed, fri. 80 mg tu, , sat, sun Spironolactone 12.5 mg daily Assessment & Plan (07/10/2021 12:27 PM EDT): [facility] Call: I would have her do the 80mg today and repeat it tomorrow if her weight isn't improved Need to look at her chronic regimen and if changes are needed 07/10/2021 Assessment & Plan (04/26/2021 12:22 PM EST): Patient is hemodynamically stable, afebrile, and in no acute distress during visit. Weight is stable. Edema noted per RN. Can elevate lower extremities above level of heart as needed for edema. Recommend sodium and fluid restrictions. Follows closely with Cardiology. History of falling 04/26/2021 Overview (06/06/2023): historical Assessment & Plan (09/01/2021 3:37 PM EDT): Last fall 04/24/21 Ambulating with a walker due to pain from hematoma. PT coming to home twice weekly Assessment & Plan (04/26/2021 12:25 PM EST): Recommended patient attempt to reduce amitriptyline to nightly dosing only (currently twice daily) for 2 weeks and if she tolerates this after the 2 weeks is over she can discontinue the medication altogether. Explained to patient that even though she does not have symptoms of depression or anxiety or neuropathy at this time, that stopping the medications may precipitate problems that were stabilized from taking the medication. She agreed to call office for worsening of condition. I will follow- up with patient in 1 month. Continue compression stockings. Consider weaning off of ropinirole as mentioned Type 2 diabetes mellitus wit h stage 3b chronic kidney disease, without long-term current use of insulin 06/28/2020 Overview: Per CKD protocol Assessment & Plan (09/01/2021 3:35 PM EDT): Last HgbA1c 6.2 Assessment & Plan (04/26/2021 12:17 PM EST): A1c 7.0 on January 24. She does not check her blood glucose regularly as she does not have a glucometer. I had a discussion with patient that even though her A1c is within target range, she may still have some high and low blood glucose readings that averaged out to fairly normal level; She may have episodes of hypoglycemia and hyperglycemia. Ordered glucometer with test strips and lancets to mail order pharmacy per patient request. Advised her to follow blood glucose readings at different times of day for the next month or so and report any abnormalities. Recommend diabetic diet. Avoid nephrotoxic drugs. Not on any medications for diabetes at this time. Status post bilateral knee replacements 01/28/20 19 Tachy-sammi syndrome 02/14/2018 Permanent atrial fibrillation 12/18/2017 Assessment & Plan (12/07/2022 1:56 PM EDT): HR stable today Continue metoprolol 25 mg BID, coumadin-per coumadin clinic Assessment & Plan (09/01/2021 3:29 PM EDT): HR stable today Continue metoprolol 25 mg BID, coumadin-per coumadin clinic Assessment & Plan (04/26/2021 12:18 PM EST): Rate controlled during visit. Taking metoprolol tartrate 12.5 mg twice daily and amiodarone. On warfarin being managed by [facility] pharmacy. History of TIA (transient ischemic attack) 09/10 Varicose veins of both legs with edema 8 Dyslipidemia, goal LDL below 100 06/21/2015 Assessment & Plan (12/07/2022 2:04 PM EDT): Lipids stable 12/08/21 Continue Cresor Assessment & Plan (09/01/2021 3:36 PM EDT): Lipids stable 12/08 Continue Cresor Hypothyroidism, postablative 09/24/2013 Assessment & Plan (12/07/2022 2:05 PM EDT): Continue synthroid 100 mcg Assessment & Plan (09/01/2021 3:36 PM EDT): Continue synthroid 100 mcg Generalized osteoarthritis 01/31/2010 Gastroesophageal reflux dise ase with esophagitis without hemorrhage 12/03/2008 Overview (12/06/2008): min gastric inflammation and mod active chronic esophageal inflammation-repeat EGD in 2 yrs Assessment & Plan (04/26/2021 12:14 PM EST): Symptoms well controlled on omeprazole intermediate current use of anticoagulant therapy 0 05/10/2004 Overview (06/04/2017): ICD-10 update of inactive term Rheumatic heart disease 03/05/2002 Old myocardial infarct 01/02/2001 Assessment & Plan (09/01/2021 3:33 PM EDT): Continue Crestor 20 mg daily S/P mitral valve replacement Assessment & Plan (09/01/2021 3:37 PM EDT): Chronic AC coumadin Assessment & Plan (04/27/2021 7:48 PM EST): Reported to be done 27 years ago per patient. Follows with Cardiology documented as of this encounter (statuses as of 05/12/2024) Resolved Problems Problem Noted Date Diagnosed Date Resolved Date Severe tricuspid regurgitation 03/14/2024 03/23/2024 Acute foreign body of ear canal 03/14/2024 03/16/2024 COPD, group B, by GOLD 2017 classification 08/27/2022 06/20/2023 Overview: Per COPD GOLD Classification Assessment & Plan (04/03/2023 10:35 PM EST): "RED FLAG" COPD symptoms: Increased dyspnea on [...] IM/IV Chest Xray Additional Comments: Followed by brine tank separator operator - Dr. Rashel Sales [facility] Assessment & Plan (12/07/2022 2:00 PM EDT): Current Status : "Stable" for patient / [...] 40mg IM/IV CBC Chest Xray Followed by brine tank separator operator - Dr. Rashel Sales [facility] Complicated UTI (urinary tract infection) 12/20/2021 05/17/2022 Mild protein-calorie malnutrition 12/05/2021 06/20/2023 Chronic obstructive pulmonary disease 08/21/2021 08/30/2022 Overview: Per COPD GOLD Classification Assessment & Plan (09/01/2021 3:32 PM EDT): No SOB. O2 stable on RA Continue [...] USE AGREEMENT 08/29/201710/2021 Restless legs syndrome 12/06/201606/18 Overview (06/19/2023): duplicate Assessment & Plan (12/07/2022 2:02 PM EDT): Symptoms are well controlled at this time. She is taking Requip. Assessment & Plan (04/26/2021 12:20 PM EST): Symptoms are well controlled at this time. She has been taking Requip for about 1 year. She has three times daily dosing. Recommended after attempting to wean off amitriptyline, consists consider weaning off of Requip or switching to nightly dosing only. Will discuss at next visit in 1 month TIA (transient ischemic attack) 12/23/2013 12/06/2016 Overview (12/23/2013): embolic Hyperlipidemia with target LDL less than 100 4 06/05/2016 Overview (06/20/2015): ICD-10 update of inactive term Dyslipidemia, goal LDL below 70 09/24/2013 12/23/2013 Hypothyroidism (acquired) 09/03/2013 KIDNEY DISEASE, CHRONIC, STA GE III (GFR 30-59 ML/MIN) 07/09/2011 08/28/2018 Overview (07/12/2011): Per CKD protocol #1 [employer] Other*[id number] 06/02/2010 04/18/2011 Overview (06/02/2010): PROJECT: #[id number], SPONSOR: Aileen, PI: Adolfo De Jesus MD [...] can be closed. CONTACT: Roberto Carlos Huertas, Retirement Officer Type 2 diabetes mellitus wit h hemoglobin A1c goal of less than 7.0% 04/24/2010 08/29/2018 Overview (06/14/2015): ICD-10 update of inactive term ACTIVE CASE MANAGEMENT Kassie Anthony RN [phone] 05/10/19 10 12/05/2009 ADVANCE DIRECTIVE INFORMATION 05/09/2009 04/26/2021 Overview (05/09/2009): No, Advance Directive brochure given to patient. Dyslipidemia, goal LDL below 100 02/03/2009 09/24/2013 Overview (02/03/2009): Per Lipid Taxonomy. Other abnormal glucose 03/13/200509/24 Mixed dyslipidemia 04/08/2002 9 Overview (02/03/2009): Per Lipid Taxonomy. Anticoagulation management encounter 08/06/2001 11/25/2017 Overview (08/27/2001): INR 3-3.5 OLD MYOCARDIAL INFARCT 01/02/200112/06 Hypothyroidism 01/02/2001 09/03/2013 THROMBOEMBOLIC MYOCARDIAL INFARCTION 10/19/2000 12/06/2016 CLASSICAL MIGRAINE WITH INTR ACTABLE MIGRAINE, SO STATED 04/26/2021 Atrial fibrillation 05/29/19 19 Right knee DJD 01/27/2019 Hemarthrosis involving knee joint 09/03/2013 Protein calorie malnutrition 03/03/2019 Type 2 diabetes mellitus wit h hemoglobin A1c goal of less than 7.0% 04/26/2021 documented as of this encounter (statuses as of 05/12/2024) Immunizations Name Administration Dates Next Due COVID-19 mRNA, LNP-s, No Pre serve, 2-Dose Series (Moderna) 04/19/2020,03/22/2020 COVID-19, MRNA-LNP, PF, 30 M CG/0.3 mL, 12 YRS AND ABOVE, IM ([employer]-Comirnaty) 12/03/2022 COVID-19, mRNA, LNP-s, PF, B ooster, 100mcg/0.5mg (Moderna) 03/14/2021 Covid-19, Mrna, Lnp-s, Pf, B ivalent, 50 Mcg, IM, 12 yrs and above (Moderna) 11/29/2021 Hepatitis B, 20+ yrs 09/01/1978,04/04/1978,03/04 Influenza, Whole Virus 02/21/2000 Pneumococcal Conjugate Vacc, 13 Valent (Prevnar) 08/29/2018 Pneumococcal Polysaccharide PPV23 (Pneumovax) 09/02/2019,01/01/2005 Season Influenza, Quad, PF, Adjuvanted, 65+ Yrs, IM (FLUAD) 12/03/2019 Seasonal Influenza Vac., MDV , IM, 0.5 mL (Fluzone) 11/03/2013,11/06/2012,10/30/2011,11/16,11/29/2009,11/03/2008,11/24/2007 ,12/10/2006,12/11/2005,12/08/2004 Seasonal Influenza, High Dos e, Trivalent, PF, IM (Fluzone HD) 11/18/2023 Seasonal Influenza, PF, 6 M & above, IM , (FluLaval or Fluzone) 10/28/2018,10/29/2017,12/06/2016 Seasonal Influenza, Quadriva lent Hd (Fluzone Hd) 11/30/2022,11/06/2021,11/10/2020 Seasonal Influenza, Quadriva lent, No Preserve, IM 12/05/2015,12/07/2014 TDAP (age 10 and older)(Boostrix) 10/14/2018 TDAP, Age 7 and older, IM (Adacel) 08/13/2007 Zoster Vaccine Recombinant (Shingrix) 03/08/2020 ,10/12/2019,09/02/2019 documented as of this encounter Social History Tobacco Use Types Packs/Day Years Used Date Smoking Tobacco: Never Smokeless Tobacco: Never Comments:No passive smoke ex posures Alcohol Use Standard Drinks/Week Comments Yes 1 (1 standard drink = 0.6 oz pur e alcohol) wine daily AUDIT-C Answer Date Recorded Q1: How often do you have a drink containing alc ohol? 2-4 times a month 03/13/2024 Q2: How many drinks containi ng alcohol do you have on a typical day when you are drinking? 1 or 2 03/13/2024 Q3: How often do you have si x or more drinks on one occasion? Never 03/13/2024 PHQ-2 Answer Date Recorded PHQ Adult Total Score 0 10/28/2023 Hunger Vital Sign Answer Date Recorded Within the past 12 months, y ou worried that your food would run out before you got the money to buy more. Never true 10/28/19 24 Within the past 12 months, t he food you bought just didn't last and you didn't have money to get more. Never true 10/28/2023 Childcare Answer Date Recorded Do you feel overwhelmed with taking care of a child, family member or friend? No 10/28/2023 Does your family need help f inding childcare? (Household - for ages 0-17 years) Not on file 10/28/2023 Clothing Answer Date Recorded Have you been unable to get clothing when it was really needed? No 10/28/2023 Is your family able to get c lothes or diapers when needed? (Household - for ages 0-17 years) Not on file 10/28/2023 Personal Safety Answer Date Recorded Do you feel unsafe or have concerns for your saf ety? No 10/28/2023 Do you have concerns for you r family's safety? (Household - for ages 0-17 years) Not on file 10/28/2023 Utilities Answer Date Recorded Do you have trouble paying y our heating, water, or electric bill? No 10/28/2023 Is your family able to pay t he heat, water, or electric bill? (Household - for ages 0-17 years) Not on file 10/28/2023 Does your family have access to good internet? (Household - for ages 0-17 years) Not on file 10/28/2023 Employment Status Answer Date Recorded Are you unemployed or without regular income? Ye s 10/28/2023 Does the household have a [facility] income? (Household - for ages 0-17 years) Not on file 10/28/2023 Social Connections Answer Date Recorded How often do you feel lonely or isolated from th ose around you? Never 10/28/2023 Financial Resource Strain Answer Date R ecorded Do you have any trouble payi ng for your medications, or do you think you might in the future? No 10/28/2023 Does your family have troubl e paying for medicine? (Household - for ages 0-17 years) Not on file 10/28/2023 Transportation Needs Answer Date Record ed READ ONLY Do you have troubl e getting a ride to medical visits or work? Never True 10/28/2023 Does your family have a hard time getting a ride to doctors visits? (Household - for ages 0-17 years) Not on file 10/28/2023 Has lack of transportation k ept you from medical appointments, meetings, work, or from getting things needed for daily living? Check all that apply. No 10/28/2023 Do you (or your family) have trouble finding or paying for a ride (transportation)? (Household - for ages 0-17 years) Not on file 10/28/2023 Housing Stability Answer Date Recorded Do you currently live in a s helter or have no steady place to sleep at night? No 10/28/2023 READ ONLY Do you think you a re at risk of becoming homeless? No 10/28/2023 Does your family worry about paying for your home or becoming homeless? (Household - for ages 0-17 years) Not on file 0 10/28/2023 Are you homeless or worried that you might be in the future? No 10/28/2023 Are you (or your family) octavio eless or worried that you might be in the future? (Household - for ages 0-17 years) Not on file Food Insecurity Answer Date Recorded Do you need food for this week? No 10/28/2023 Are you able to get enough f ood for your family? (Household - for ages 0-17 years) Not on file 10/28/2023 Does your family need food t his week? (Household - for ages 0-17 years) Not on file 10/28/2023 Do you always have enough fo od for your family? (Household - for ages 0-17 years) Not on file 10/28/2023 Food Insecurity Answer Date Recorded Within the past 12 months, y ou worried that your food would run out before you got the money to buy more. Never true 10/28/19 24 Within the past 12 months, t he food you bought just didn't last and you didn't have money to get more. Never true 10/28/2023 Do you need food for this week? 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 Answer Date of Assessment Author Yes 03/13/2024 3:44 PM Maury Thacker RN * Are you blind or do you have serious difficulty seeing, even when wearing glasses? Answer Date of Assessment Author No 03/13/2024 3:44 PM Maury Thacker RN * Do you have serious difficulty walking or climbing stairs? (5 years old or older) Answer Date of Assessment Author Yes 03/13/2024 3:44 PM Maury Thacker RN * Do you have difficulty dressing or bathing? (5 years old or older) Answer Date of Assessment Author Yes 03/13/2024 3:44 PM Maury Thacker RN * Because of a physical, mental, or emotional condition, do you have difficulty doing errands alone such as visiting a doctors office or shopping? (15 years old or older) Answer Date of Assessment Author Yes 03/13/2024 3:44 PM Maury Thacker RN documented as of this encounter Mental Status * Because of a physical, mental, or emotional condition, do you have serious difficulty concentrating, remembering, or making decisions? (5 years old or older) Answer Entry Date Author Yes 03/13/2024 3:44 PM Maury Thacker RN documented in this encounter Progress Notes * Lesia Harper RPh - 05/11/2024 3:14 PM EDT Received MyG that GML is coming out Saturday for BMP and patient would like INR drawn at that timetoo. Will keep Saturday GML for now as may need depending on INR result- If INR still in range may be ableto cancel Saturday GML. Thank You Lesia Harper PharmD Clinical Pharmacist [facility] ([facility] [phone] / [phone] 05/11/2024, 3:14 PM * Anita Becker intervention manager - 05/11/2024 2:38 PM EDT Contacts Contact Date/Time Type Contact Phone/Fax 05/11/2024 02:34 PM EDT Phone (Outgoing) Abdi Bowling (Self) [phone] (M) Spoke to Patient Subjective Patient Findings [...] date communicated as noted by Pharmacist: Yes Anita Becker intervention manager 05/11/2024, 2:38 PM * Lesia Harper RPh - 05/11/2024 2:08 PM EDT Coumadin Clinic (region specific) Objective Current Warfarin Dose As of 05/11/2024 Warfarin maintenance plan: 7.5 mg (2.5 mg x 3) every Mon; 5 mg (2.5 mg x 2) all other days INR Result As of 05/11/2024 INR goal: 3.0-3.5 INR used for dosin.0 (05/11/2024) Assessment & Plan Warfarin Plan As of 05/11/2024 Full warfarin instructions: 7.5 mg every Mon; 5 mg all other days No change documented: Lesia Harper RPh Next INR check: 05/13/2024 I sent MyG Repeat PT/INR in 2 day(s) per pt preference Weekly dose: not changed Additional Dosing Information: Description GML WedFri, prefers Wed ([facility], [facility], or [facility]) Please also send [facility] [employer] message [employer] to contact patient with dose instructions as noted. Lesia Harper RPh 05/11/2024, 2:08 PM documented in this encounter Plan of Treatment Upcoming Encounters Date Type Department Care Team (Late st Contact Info) Description 05/12/2024 10:00 AM EDT Office Visit Family Medicine [address] [place] [phone] Lesia Morton MD [address] [place] [address] [place] [phone] 05/13/2024 7:20 AM EDT Laboratory Lab Mobile Phlebotomy [address] [place] [address] [facility] Mobile Home Draw [address] [place] [address] [place] [address] 05/13/2024 6:00 PM EDT Anticoagulation [facility], Denia Yee [address] [place] [address] [place] [address] [place] [address] 05/15/2024 7:05 AM EDT Laboratory Lab [facility] Phlebotomy [address] [place] [address] [facility] Mobile Home Draw [facility] [place] [address] 05/15/2024 3:00 PM EDT Office Visit Gastroenterology, [place] [address] [place] [address] Cat Kenny PA-C [address] [place] [address] 05/15/2024 6:00 PM EDT Antico[facility], Denia Yee [address] [place] [address] [place] [address] [facility] [place] [address] 05/19/2024 1:30 PM EDT Office Visit Allergy/Immunology [facility] [address] [place] [address] Macario Pathak MD [address] [place] [address] 06/11/2024 5:00 PM EDT Home Visit [facility] [address] [place] [address] Valentina Laws RN [address] [place] [address] 06/23/2024 2:00 PM EDT Office Visit Hematology/Oncology [facility] Lacy [place] [address] [facility] [place] [phone] Bouchra Del Cid CRNP [address] [facility] [place] [address] 06/24/2024 1:40 PM EDT Office Visit Family Medicine [address] [place] [phone] Shara Ray MD [address] [place] [address] [place] [address] 07/14/2024 3:00 PM EDT Cardiac Studies Cardiac Studies, [facility] [place] [phone] 07/15/2024 2:00 PM EDT Office Visit Cardiology [facility] [address] [facility] [place] [phone] Maria Ines Bowers CRNP [address] [facility] [place] [address] 08/20/2024 3:00 PM EDT Office Visit Nephrology [address] [place] [address] Aliyah Lacey MD 200 [facility] [place] [address] 12/09/2024 10:00 AM EDT Office Visit Cardiology, [facility] [address] [place] [phone] Hadley Molina MD [address] [place] [address] 01/08/2025 2:00 PM EST Office Visit Family Medicine [address] [place] [phone] Shara Ray MD [address] [place] [address] [place] [address] 03/01/2025 2:40 PM EST Office Visit Nephrology [address] [place] [address] Aliyah Lacey MD [address] [facility] [address] Scheduled Procedures Name Priority Associated Diagnoses Date/Ti me COLONOSCOPY FLEXIBLE PROXIMAL DIAGNOSTIC Recall Screen for colon cancer Health Maintenance Due Date Last Done Comments Cologuard 1998 Sigmoidoscopy 1998 Fecal Occult Blood Test 03/26/2014 03/26/19 14, 11/20/2010, 11/09/2009 Colonoscopy 02/23/2023 02/24/2020, 07/2020, 07/16/2013, Additional history exists Colorectal Cancer Screening 02/23/2023 Adult Wellness Visit 07/31/2023 07/30/2022, 07/05/2021, 07/04/2020 Diabetic Eye Exam 07/31/2023 07/30/2022, , 12/27/2020, Additional history exists Diabetic Foot Exam 07/31/2023 07/30/2022, 0 09/02/2019, 08/29/2018, Additional history exists TSH 06/06/2024 06/07/2023, 05/19, 06/28/2021, Additional history exists COVID-19 Vaccine ( season) 2024 01/02/2024, 12/03/2022, 11/29/2021, Additional history exists HbA1c 09/11/2024 03/14/2024, 07/19, 04/24/2023, Additional history exists Albumin/Creatinine Ratio 09/25/2024 024, 05/07/2023, 12/03/2022, Additional history exists Depression Monitoring 10/27/2024 10/28/2023 GFR 11/08/2024 05/08/2024, 04/18, 04/22/2024, Additional history exists Mammogram 11/26/2024 11/27/2023, 10/20, 11/15/2022, Additional history exists CKD PHOS USE SMARTSET 33172 03/23/202504/2024, 03/22/2024, 03/21/2024, Additional history exists CKD HGB USE SMARTSET 46814 03/25/202503/25, 03/23/2024, 03/22/2024, Additional history exists DTap/Tdap Vaccines (3 - Td or Tdap) 10/14/2028 10/14/2018, 08/13/2007 DXA Scan 11/14/2028 11/14/2021, 11/14/2021 Hepatitis B Vaccine Completed 09/01/1978, 04/04/1978, 03/04/1978 Pneumococcal Vaccine: 50+ Years Completed 09/02/2019, 08/29/2018, 01/01/2005 Influenza Vaccine (FLU shot) Completed , 11/30/2022, 11/06/2021, Additional history exists HPV (Gardasil) Vaccine Aged Out No lo nger eligible based on patient's age to complete this topic MENINGOCOCCAL (MENACTRA/MENVEO) Aged Out No longer eligible based on patient's age to complete this topic Meningitis B Vaccine (Bexsero/Trumemba) Aged Out No longer eligible based on patient's age to complete this topic documented as of this encounter Medical Devices Implanted Type Area Squaring Shear Operator Device Identifier Shelf Expiration Date Model / Serial / Lot [place] Suture Biocomposite - Sn/A - [id number] Implanted:Qty: 2 on 12/13/2021 by Moris Jimenez, DO at [facility] Left: Leg Lower [employer] 07/18/2024 [id number] / N/A / [id number] Vitoss Bbtrauma Foam Pack - [id number] - [id number] Implanted:Qty: 1 on 12/13/2021 by Moris Jimenez, DO at [facility] Left: Leg Lower MICHA : TRAUMA 01/15/2022 [id number] / [id number] / [id number] System Delivery Triclip Xtw - [id number] Implanted:Qty: 1 on 03/18/2024 at [facility] PV Nano Cell 08/11/2025 [id number] / / documented as of this encounter Visit Diagnoses Diagnosis Gastroesophageal reflux disease with esophagitis without hemorrhage- Primary Type 2 diabetes mellitus with stage 3b chronic kidney disease, without long-term current use of insulin ([facility]) Permanent atrial fibrillation ([facility]) Atrial fibrillation Restless legs syndrome Restless legs syndrome (RLS) S/P mitral valve replacement Heart valve replaced by other means Hypertensive heart and kidney disease with chronic diastolic congestive heart failure and stage 3b chronic kidney disease ([facility]) Recurrent falls Personal history of fall Hypertensive heart and kidney disease with chronic diastolic congestive heart failure and stage 3b chronic kidney disease ([facility])- Primary Intramuscular hematoma- Primary Contusion of unspecified site Permanent atrial fibrillation ([facility]) Atrial fibrillation Chronic obstructive pulmonary disease, unspecified COPD type ([facility]) Old myocardial infarct Old myocardial infarction Type 2 diabetes mellitus with stage 3b chronic kidney disease, without long-term current use of insulin ([facility]) Hypothyroidism, postablative Other postablative hypothyroidism Generalized anxiety disorder Permanent atrial fibrillation ([facility])- Primary Atrial fibrillation Type 2 diabetes mellitus with stage 3b chronic kidney disease, without long-term current use of insulin ([facility]) Hypertensive heart and kidney disease with chronic diastolic congestive heart failure and stage 3b chronic kidney disease (HCC) COPD, group B, by GOLD 2017 classification ([facility]) Gastroesophageal reflux disease with esophagitis without hemorrhage Hypothyroidism, postablative Other postablative hypothyroidism Dyslipidemia, goal LDL below 100 Other and unspecified hyperlipidemia Restless legs syndrome Restless legs syndrome (RLS) Iron deficiency anemia, unspecified iron deficiency anemia type Hypertensive heart and kidney disease with chronic diastolic congestive heart failure and stage 3b chronic kidney disease (HCC)- Primary COPD, group B, by GOLD 2017 classification ([facility]) Major depressive disorder, recurrent, moderate ([facility]) Major depressive disorder, recurrent episode, moderate Other persistent atrial fibrillation (HCC) Generalized anxiety disorder Atherosclerosis of [place] coronary artery without angina pectoris, unspecified whether [place] or transplanted heart Hypothyroidism, postablative Other postablative hypothyroidism Dyslipidemia, goal LDL below 100 Other and unspecified hyperlipidemia intermediate current use of anticoagulant therapy- Primary History of TIA (transient ischemic attack) Transient ischemic attack (TIA), and cerebral infarction without residual deficits S/P mitral valve replacement Heart valve replaced by other means documented in this encounter Advance Directives * Full Code (Latest Code Status on File) Date Activated Date Inactivated Comments 03/18/2024 5:56 PM 03/23/2024 8:35 PM This order re flects the patients wishes and were consensually agreed upon. Question Answer Comments Discussion of Advance Direct erica occurred with: Not Discussed due to patient's condition * Full Code Date Activated Date Inactivated Comments 03/13/2024 4:17 PM 03/18/2024 5:56 PM This order r eflects the patients wishes and were consensually agreed upon. Question Answer Comments Discussion of Advance Directives occurred with: Patient * Full Code Date Activated Date Inactivated Comments 12/12/2021 7:18 PM 12/20/2021 6:08 PM This order reflects the patients wishes and were consensually agreed upon. Question Answer Comments Discussion of Advance Directives occurred with: Patient Care Teams Engineer Relationship Specialty Start Date End Date Shara Ray MD [address] [place] [address] [place] [address] PCP - General Family Medicine 12/30/23 documented as of this encounter
--- OUTSIDE RECORDS SUMMARY | 2024-05-12 09:02 | External Medical Summary | Summary of Care ---
Author Name Unknown Organization [facility] Address [address] [facility] [place] [address] Phone [phone] Care Team Providers Care Attorney At Law Name Role Phone Shara Ray MD Primary Care Provide r Reason for Visit * Reason Comments Dosage Adjustment Via Phone (anticoag Cl inic) Encounter Details Date Type Department Care Team (Late st Contact Info) Description 05/11/2024 6:00 PM EDT Anticoagulation Centralized Clinical Pharmacy Services, [address] [place] [address] [place] [address] [facility] current use of anticoagulant therapy*; History [...] needed 50 mL 12/07/19 23 Active Nystatin 984971 UNIT/ML Mouth/Throat SuspensionIndicati ons:Thrush Swish and swallow [...] without long-term current use of insulin ([facility]) Check your glucose daily as needed 1 Kit 07/25/19 Active LancetsIndications :Type 2 diabetes mellitus with stage 3b chronic kidney disease, without long-term current use of insulin ([facility]) Use as directed. 100 Each 07/25/19 Active Glucose Blood In Vitro StripIndications:T ype 2 diabetes mellitus with stage 3b chronic kidney disease, without long-term current use of insulin ([facility]) Use as directed. 100 Strip [...] Chronic right-sided heart failure 03/20/2024 Atherosclerosis of [place] co ronary artery of [place] heart without angina pectoris 04/03/2023 Major depressive [...] leg, left, subsequent encounter 09/2021 Overview (12/05/2021): [facility] ER ulstrasound [...] Assessment & Plan (07/10/2021 12:27 PM EDT): [facility] Call: I would have her do [...] and amiodarone. On warfarin being managed by [facility] pharmacy. History of TIA (transient ischemic attack) [...] PM EST): Symptoms well controlled on omeprazole FPC current [...] IM/IV Chest Xray Additional Comments: Followed by kelp cutter - Dr. Rashel Sales [facility] Assessment & Plan (12/07/2022 2:00 PM EDT): [...] 40mg IM/IV CBC Chest Xray Followed by kelp cutter - Dr. Rashel Sales [facility] Complicated UTI (urinary tract infection) 12/20/2021 [...] (07/12/2011): Per CKD protocol #1 [employer] Other*[id number] 06/02/2010 04/18/2011 Overview (06/02/2010): PROJECT: #[id number], SPONSOR: Aileen, PI: Adolfo De Jesus MD [...] can be closed. CONTACT: Roberto Carlos Huertas, Golf Player Assistant Type 2 diabetes mellitus wit h [...] CG/0.3 mL, 12 YRS AND ABOVE, IM (Mojeek-Comirnaty) 12/03/2022 COVID-19, mRNA, LNP-s, PF, B ooster, [...] Clinical Pharmacist Centralized Clinical Pharmacy Services ([facility]) [phone] / [phone] 05/11/2024, 3:14 PM * Anita Becker pipe and tank fabricator - 05/11/2024 2:38 PM EDT Contacts Contact Date/Time Type Contact Phone/Fax 05/11/2024 02:34 PM EDT Phone (Outgoing) Abdi Bowling (Self) [phone] (M) Spoke to Patient Subjective Patient Findings [...] as noted by Pharmacist: Yes Anita Becker pipe and tank fabricator 05/11/2024, 2:38 PM * Lesia Harper RPh [...] Dosing Information: Description GML WedFri, prefers Wed ([facility], [facility], or [facility]) Please also send myJibbigo message Tech to contact patient with dose instructions as noted. Lesia Harper RPh 05/11/2024, 2:08 PM documented in this encounter Plan of Treatment Upcoming Encounters Date Type Department Care Team (Late st Contact Info) Description 05/12/2024 10:00 AM EDT Office Visit Family Medicine [address] [place] [phone] Lesia Morton MD [address] [place] [address] [place] [phone] 05/13/2024 7:20 AM EDT Laboratory Lab Mobile Phlebotomy [address] [place] [address] [facility] Mobile Home Draw [address] [place] [address] [place] [address] 05/13/2024 6:00 PM EDT Anticoagulation Centralized Clinical Pharmacy Services, Denia Yee [address] [place] [address] [place] [address] [place] [address] 05/15/2024 7:05 AM EDT Laboratory Lab Mobile Phlebotomy [address] [place] [address] [facility] Mobile Home Draw [facility] [place] [address] 05/15/2024 3:00 PM EDT Office Visit Gastroenterology, [place] [address] [place] [address] Cat Kenny PA-C [address] [place] [address] 05/15/2024 6:00 PM EDT Anticoagulation Centralized Clinical Pharmacy Services, Denia Yee [address] [place] [address] [place] [address] [facility] [place] [address] 05/19/2024 1:30 PM EDT Office Visit Allergy/Immunology [facility] [address] [place] [address] Macario Pathak MD [address] [place] [address] 06/11/2024 5:00 PM EDT [facility], [facility] [address] [place] [address] Valentina Laws RN [address] [place] [address] 06/23/2024 2:00 PM EDT Office Visit Hematology/Oncology [facility] [place] 200 [facility] [place] [phone] Bouchra Del Cid CRNP 400 [facility] [place]ARDOJOSÉ [place] [address] 06/24/2024 1:40 PM EDT Office Visit Family Medicine [address] [place] [phone] Shara Ray MD [address] [place] [address] [place] [address] 07/14/2024 3:00 PM EDT Cardiac Studies Cardiac Studies, [facility] [place] [phone] 07/15/2024 2:00 PM EDT Office Visit Cardiology [facility] [place] [phone] Maria Ines Bowers CRNP [address] [facility] [place] [address] 08/20/2024 3:00 PM EDT Office Visit Nephrology [address] [place] [address] Aliyah Lacey MD 200 [facility] [place] [address] 12/09/2024 10:00 AM EDT Office Visit Cardiology, [facility] [address] [place] [phone] Hadley Molina MD [address] [place] [address] 01/08/2025 2:00 PM EST Office Visit Family Medicine [address] [place] [phone] Shara Ray MD [address] [place] [address] [place] [address] 03/01/2025 2:40 PM EST Office Visit Nephrology [address] [place] [address] Aliyah Lacey MD [address] [facility] [address] Scheduled Procedures Name Priority Associated Diagnoses Date/Ti [...] Additional history exists CKD PHOS USE SMARTSET 39152 03/23/202504/2024, 03/22/2024, 03/21/2024, Additional history exists CKD HGB USE SMARTSET 26797 03/25/202503/25, 03/23/2024, 03/22/2024, Additional history exists DTap/Tdap [...] this encounter Medical Devices Implanted Type Area Mems Integration Engineer Device Identifier Shelf Expiration Date Model / Serial / Lot [place] Suture Biocomposite - Sn/A - [id number] Implanted:Qty: 2 on 12/13/2021 by Moris Jimenez, DO at OR [facility] Left: Leg Lower [employer] 07/18/2024 [id number] / N/A / [id number] Vitoss Bbtrauma Foam Pack - [id number] - [id number] Implanted:Qty: 1 on 12/13/2021 by Moris Jimenez, DO at OR [facility] Left: Leg Lower MICHA : TRAUMA 01/15/2022 [id number] / [id number] / [id number] System Delivery Triclip Xtw - [id number] Implanted:Qty: 1 on 03/18/[address] [facility] [employer] 08/11/2025 [id number] / / documented as of this encounter Visit Diagnoses Diagnosis Gastroesophageal reflux disease with esophagitis without hemorrhage- Primary Type 2 diabetes mellitus with stage 3b chronic kidney disease, without long-term current use of insulin ([facility]) Permanent atrial fibrillation ([facility]) Atrial fibrillation Restless legs syndrome Restless legs syndrome (RLS) S/P mitral valve replacement Heart valve replaced by other means Hypertensive heart and kidney disease with chronic diastolic congestive heart failure and stage 3b chronic kidney disease ([facility]) Recurrent falls Personal history of fall Hypertensive heart and kidney disease with chronic diastolic congestive heart failure and stage 3b chronic kidney disease ([facility])- Primary Intramuscular hematoma- Primary Contusion of unspecified site Permanent atrial fibrillation ([facility]) Atrial fibrillation Chronic obstructive pulmonary disease, unspecified COPD type ([facility]) Old myocardial infarct Old myocardial infarction Type 2 diabetes mellitus with stage 3b chronic kidney disease, without long-term current use of insulin ([facility]) Hypothyroidism, postablative Other postablative hypothyroidism Generalized anxiety disorder Permanent atrial fibrillation ([facility])- Primary Atrial fibrillation Type 2 diabetes mellitus with stage 3b chronic kidney disease, without long-term current use of insulin ([facility]) Hypertensive heart and kidney disease with chronic diastolic congestive heart failure and stage 3b chronic kidney disease (HCC) COPD, group B, by GOLD 2017 classification ([facility]) Gastroesophageal reflux disease with esophagitis [...] group B, by GOLD 2017 classification ([facility]) Major depressive disorder, recurrent, moderate ([facility]) Major depressive disorder, recurrent episode, moderate Other persistent atrial fibrillation (HCC) Generalized anxiety disorder Atherosclerosis of eyak coronary artery without angina pectoris, unspecified whether eyak or transplanted heart Hypothyroidism, postablative Other postablative hypothyroidism Dyslipidemia, goal LDL below 100 Other and unspecified hyperlipidemia [facility] current use of anticoagulant therapy- Primary [...] 4:17 PM 03/18/2024 5:56 PM This order reflects the patients wishes and were consensually agreed upon. Question Answer Comments Discussion of Advance Directives occurred with: Patient * Full Code Date Activated Date Inactivated Comments 12/12/2021 7:18 PM 12/20/2021 6:08 PM This order reflects the patients wishes and were consensually agreed upon. Question Answer Comments Discussion of Advance Directives occurred with: Patient Care Teams Attorney At Law Relationship Specialty Start Date End Date Shara Ray MD [address] [place] [address] [place] [address] PCP - General Family Medicine 12/30/23 documented as of this encounter
--- OUTSIDE RECORDS SUMMARY | 2024-05-12 09:03 | External Medical Summary | Summary of Care ---
Author Name Unknown Organization [facility] Address [address] [place] [facility] [place] [address] Phone [phone] Care Team Providers Care Heat Welder Plastics Name Role Phone Shara Ray MD Primary Care Provide r Reason for Visit * Reason Comments Outpatient Testing Encounter Details Date Type Department Care Team (Late st Contact Info) Description 05/11/2024 12:50 PM EDT Laboratory Laboratory, [facility] [address] [facility] [place] [phone] [facility] [place] [address] History of TIA (transient ischemic attack); S/P [...] as of this encounter (statuses as of 05/11/2024) Medications acetaminophen (TYLENOL) 500 MG Tablet Take [...] needed 50 mL 12/07/19 23 Active Nystatin 169633 UNIT/ML Mouth/Throat SuspensionIndicati ons:Thrush Swish and swallow [...] 1 Capsule by mouth every other day. 05/14/20 24 Active Blood Glucose Monitor System w/Device KitIndications:Typ e 2 diabetes mellitus with stage 3b chronic kidney disease, without long-term current use of insulin ([facility]) Check your glucose daily as needed 1 Kit 07/25/19 Active LancetsIndications :Type 2 diabetes mellitus with stage 3b chronic kidney disease, without long-term current use of insulin ([facility]) Use as directed. 100 Each 11 07/25/19 Active Glucose Blood In Vitro StripIndications:T ype 2 diabetes mellitus with stage 3b chronic kidney disease, without long-term current use of insulin ([facility]) Use as directed. 100 Strip 07/25/19 Active Albuterol Sulfate HFA 108 (90 Base) [...] as of this encounter (statuses as of 05/11/2024) Active Problems Problem Noted Date Diagnosed Date S/P tricuspid valve repair 04/09/2024 Hypothyroidism 04/09/2024 Hyperparathyroidism 04/09/2024 Moderate tricuspid regurgitation 03/23/2024 Esophageal dysmotility 03/23/2024 Chronic right-sided heart failure 03/20/2024 Atherosclerosis of [place] co ronary artery of [place] heart without angina pectoris 04/03/2023 Major depressive [...] leg, left, subsequent encounter 09/2021 Overview (12/05/2021): [facility] ER ulstrasound shows hematoma [...] in the Comments) Remote Patient Monitoring Vendor: [facility] Device(s): Connected Scale Self [...] Assessment & Plan (07/10/2021 12:27 PM EDT): [facility] Call: I would have her do the [...] and amiodarone. On warfarin being managed by [facility] pharmacy. History of TIA (transient ischemic [...] PM EST): Symptoms well controlled on omeprazole designer/writer current use of anticoagulant therapy 0 05/10/2004 [...] as of this encounter (statuses as of 05/11/2024) Resolved Problems Problem Noted Date Diagnosed Date [...] IM/IV Chest Xray Additional Comments: Followed by operations management trainee - Dr. Rashel Sales [facility] Assessment & Plan (12/07/2022 2:00 PM EDT): [...] 40mg IM/IV CBC Chest Xray Followed by operations management trainee - Dr. Rashel Sales [facility] Complicated UTI (urinary tract infection) [...] (07/12/2011): Per CKD protocol #1 [employer] Other*[id number] 06/02/2010 04/18/2011 Overview (06/02/2010): PROJECT: #[id number], SPONSOR: Aileen, PI: Adolfo De Jesus MD [...] can be closed. CONTACT: Roberto Carlos Huertas, Court Magistrate Type 2 diabetes mellitus wit h hemoglobin [...] as of this encounter (statuses as of 05/11/2024) Immunizations Name Administration Dates Next Due COVID-19 mRNA, LNP-s, No Pre serve, 2-Dose Series (Moderna) 04/19/2020,03/22/2020 COVID-19, MRNA-LNP, PF, 30 M CG/0.3 mL, 12 YRS AND ABOVE, IM (Re[employer]a Labs-Comirnat) 12/03/2022 COVID-19, mRNA, LNP-s, PF, B ooster, 100mcg/0.5mg (Moderna) 03/14/2021 Covid-19, Mrna, Lnp-s, Pf, B ivalent, 50 Mcg, IM, 12 yrs and above (Moderna) 11/29/2021 Hepatitis B, 20+ yrs 09/01/1978,04/04/1978,03/04 Pneumococcal Conjugate Vacc, 13 Valent (Prevnar) 08/29/2018 Pneumococcal Polysaccharide PPV23 (Pneumovax) 09/02/2019 Season Influenza, Quad, PF, Adjuvanted, 65+ Yrs, IM (FLUAD) 12/03/2019 Seasonal Influenza Vac., MDV , IM, 0.5 mL (Fluzone) 11/03/2013,11/06/2012,10/30/2011,11/16,11/29/2009,11/03/2008,11/24/2007 ,12/10/2006,12/11/2005 Seasonal Influenza, High Dos e, Trivalent, PF, [...] s 10/28/2023 Does the household have a schoolcraft memorial hospitalr source of income? (Household - for [...] Maury Thacker RN documented in this encounter Plan of Treatment Upcoming Encounters Date Type Department Care Team (Late st Contact Info) Description 05/12/2024 10:00 AM EDT Office Visit Family Medicine [address] [phone] Lesia Morton MD [address] [place] [address] [place] [phone] 05/13/2024 7:20 AM EDT Laboratory Lab Mobile Phlebotomy [address] [place] [address] [facility] Mobile Home Draw [address] [place] [address] [place] [address] 05/13/2024 6:00 PM EDT Anticoagulation Centralized Clinical Pharmacy Services, Denia Yee [address] [place] [address] [place] [address] [facility], [address] [place] [address] 05/15/2024 7:05 AM EDT Laboratory Lab Mobile Phlebotomy [address] [place] [address] [facility] Mobile Home Draw [address] [facility] [place] [address] 05/15/2024 3:00 PM EDT Office Visit Gastroenterology, [place] [address] [place] [address] Cat Kenny PA-C [address] [place] [address] 05/15/2024 6:00 PM EDT Anticoagulation Centralized Clinical Pharmacy Services, Denia Yee [address] [place] [address] [place] [address] [facility], [address] [place] [address] 05/19/2024 1:30 PM EDT Office Visit Allergy/Immunology [facility] [address] [place] [address] Macario Pathak MD [address] [place] [address] 06/11/2024 5:00 PM EDT [facility], [facility] [address] [facility] [place] [address] Valentina Laws, TANISHA 132 [facility] [place] [address] 06/23/2024 2:00 PM EDT Office Visit Hematology/Oncology [facility] [address] [place] [phone] Bouchra Del Cid CRNP [address] [place] [address] 06/24/2024 1:40 PM EDT Office Visit Family Medicine [address] [phone] Shara Ray MD [address] [place] [address] [place] [address] 07/14/2024 3:00 PM EDT Cardiac Studies Cardiac Studies, [facility] [address] [place] [phone] 07/15/2024 2:00 PM EDT Office Visit Cardiology, [facility] [address] [place] [phone] Maria Ines Bowers CRNP [address] [place] [address] 08/20/2024 3:00 PM EDT Office Visit Nephrology [address] [place] [address] Aliyah Lacey MD [address] [place] [address] 12/09/2024 10:00 AM EDT Office Visit Cardiology, [facility] [address] [place] [phone] Hadley Molina MD [address] [place] [address] 01/08/2025 2:00 PM EST Office Visit Family Medicine [address] [place] [phone] Shara Ray MD [address] [place] [address] [place] [address] 03/01/2025 2:40 PM EST Office Visit Nephrology [address] [place] [address] Aliyah Lacey MD [address] [place] [address] Scheduled Procedures Name Priority Associated Diagnoses Date/Ti [...] Additional history exists CKD PHOS USE SMARTSET 81334 03/23/2025 02/0 04/2024, 03/22/2024, 03/21/2024, Additional history exists CKD HGB USE SMARTSET 95950 03/25/202503/25, 03/23/2024, 03/22/2024, Additional history exists DTap/Tdap [...] this encounter Medical Devices Implanted Type Area Edi Coordinator Device Identifier Shelf Expiration Date Model / Serial / Lot [place] Suture Biocomposite - Sn/A - [id number] Implanted:Qty: 2 on 12/13/2021 by Moris Jimenez DO at OR [facility] Left: Leg Lower [employer] 07/18/2024 [id number] / N/A / [id number] Vitoss Bbtrauma Foam Pack - [id number] - [id number] Implanted:Qty: 1 on 12/13/2021 by Moris Jimenez DO at OR [facility] Left: Leg Lower MICHA : TRAUMA 01/15/[id number] / [id number] System Delivery Triclip Xtw - [id number] Implanted:Qty: 1 on 03/18/2024 at [facility] [employer] 08/11/2025 [id number] / / documented as of this encounter Procedures Procedure Name Priority Date/Time Associated Diagnosis Comments PT INR Routine 05/11/2024 12:41 PM EDT History of TIA (transient ischemic attack) S/P mitral valve replacement Permanent atrial fibrillation (HCC) Anticoagulation management encounter documented in this encounter Results * (ABNORMAL) PT INR (05/11/2024 12:41 PM EDT) Prothrombin Time 31.8(H) 11.6 - 15.2 seconds 05/11/2024 1:08 PM EDT [facility]-10 INR 3.0(H) 0.8 - 1.2 05/11/2024 1:08 PM EDT LAB[facility]ORY [facility] 57-10 Blood Venous blood specimen / Unknown Venipuncture / Unknown 05/11/2024 12:41 PM EDT 05/11/2024 12:41 PM EDT Narrative LAB[facility]ATORY [facility] 57-10 - 05/11/2024 1:08 PM EDT Warfarin Therapy INR: 2.0-3.0 conventional anticoagulation INR: 2.5-3.5 high intensity anticoagulation [facility] LAB BLOOD ORDERABLES Kacy colvin Result LABORATORY [facility] Pickard10 [address] [place] [address] documented in this encounter Visit Diagnoses Diagnosis Gastroesophageal reflux disease with esophagitis without hemorrhage- Primary Type 2 diabetes mellitus with stage 3b chronic kidney disease, without long-term current use of insulin ([facility]) Permanent atrial fibrillation ([facility]) Atrial fibrillation Restless legs syndrome Restless legs syndrome (RLS) S/P mitral valve replacement Heart valve replaced by other means Hypertensive heart and kidney disease with chronic diastolic congestive heart failure and stage 3b chronic kidney disease ([facility]) Recurrent falls Personal history of fall Hypertensive heart and kidney disease with chronic diastolic congestive heart failure and stage 3b chronic kidney disease ([facility])- Primary Intramuscular hematoma- Primary Contusion of unspecified site Permanent atrial fibrillation ([facility]) Atrial fibrillation Chronic obstructive pulmonary disease, unspecified COPD type (HCC) Old myocardial infarct Old myocardial infarction Type 2 diabetes mellitus with stage 3b chronic kidney disease, without long-term current use of insulin ([facility]) Hypothyroidism, postablative Other postablative hypothyroidism Generalized anxiety disorder Permanent atrial fibrillation (HCC)- Primary Atrial fibrillation Type 2 diabetes mellitus with stage 3b chronic kidney disease, without long-term current use of insulin ([facility]) Hypertensive heart and kidney disease with chronic diastolic congestive heart failure and stage 3b chronic kidney disease (HCC) COPD, group B, by GOLD 2017 classification (HCC) Gastroesophageal reflux disease with esophagitis without hemorrhage [...] fibrillation (HCC) Generalized anxiety disorder Atherosclerosis of [place] coronary artery without angina pectoris, unspecified whether [place] or transplanted heart Hypothyroidism, postablative Other postablative hypothyroidism Dyslipidemia, goal LDL below 100 Other and unspecified hyperlipidemia History of TIA (transient ischemic attack) Transient ischemic attack (TIA), and cerebral infarction without residual deficits S/P mitral valve replacement Heart valve replaced by other means Permanent atrial fibrillation (HCC) Atrial fibrillation Anticoagulation management encounter Encounter for therapeutic drug monitoring documented in this encounter Advance Directives * [...] Advance Directives occurred with: Patient Care Teams Heat Welder Plastics Relationship Specialty Start Date End Date Shara Ray MD [address] [place] [address] [place] [address] PCP - General Family Medicine 12/30/23 documented as of this encounter
--- OUTSIDE RECORDS SUMMARY | 2024-05-12 09:03 | External Medical Summary | Summary of Care ---
Author Name Unknown Organization [facility] Address [address] [facility] [place] [address] Phone [phone] Care Team Providers Care Profiling Machine Set Up Operator Name Role Phone Shara Ray MD Primary Care Provide r Reason for Visit * Reason Comments eRx-Medication Refill Encounter Details Date Type Department Care Team (Late st Contact Info) Description 05/09/2024 Refill Family [address] [place] [address] Chastity Kim PA-C [address] [place] [address] [place] [address] Bronchitis, complicated Allergies Active Allergy Reactions Criticality Noted Date [...] as of this encounter (statuses as of 05/10/2024) Medications acetaminophen (TYLENOL) 500 MG Tablet Take [...] needed 50 mL 12/07/19 23 Active Nystatin 201399 UNIT/ML Mouth/Throat SuspensionIndicati ons:Thrush Swish and swallow [...] without long-term current use of insulin (HCC) Check your glucose daily as needed 1 Kit 07/25/19 Active LancetsIndications :Type 2 diabetes mellitus with stage 3b chronic kidney disease, without long-term current use of insulin (HCC) Use as directed. 100 Each 11 07/25/19 Active Glucose Blood In Vitro StripIndications:T ype 2 diabetes mellitus with stage 3b chronic kidney disease, without long-term current use of insulin (HCC) Use as directed. 100 Strip 11 07/25/19 Active Albuterol Sulfate HFA 108 (90 [...] morning. 90 Tablet 3 04/23/19 25 Active Benzonatate 100 MG Oral CapsuleIndications :Cough Take 1 Capsule by mouth 3 times a day as needed for Cough. 30 Capsule 1 04/24/19 25 Active Levothyroxine Sodium 100 MCG Oral [...] TWO SPRAYS BEFORE BEDTIME 30 mL 2 05/09/19 25 026 Active Metoprolol Succinate ER 25 MG Oral Tablet Extended Release 24 Hour (toPROL XL) Take 1 Tablet by mouth at bedtime. 04/30/19 25 Active Metoprolol Succinate ER 50 MG Oral Tablet Extended Release 24 Hour (toPROL XL) Take 1 Tablet by mouth in the morning. 90 Tablet 1 05/10/19 25 Active documented as of this encounter (statuses as of 05/10/2024) Active Problems Problem Noted Date Diagnosed Date S/P tricuspid valve repair 04/09/2024 Hypothyroidism 04/09/2024 Hyperparathyroidism 04/09/2024 Moderate tricuspid regurgitation 03/23/2024 Esophageal dysmotility 03/23/2024 Chronic right-sided heart failure 03/20/2024 Atherosclerosis of [place] co ronary artery of [place] heart without angina pectoris 04/03/2023 Major depressive [...] leg, left, subsequent encounter 09/2021 Overview (12/05/2021): [facility] ER ulstrasound [...] 40 mg mon, wed, fri. 80 mg , , sat, sat Spironolactone 12.5 mg daily Assessment & Plan (07/10/2021 12:27 PM EDT): [facility] Call: I would have her [...] and amiodarone. On warfarin being managed by [facility] pharmacy. History of TIA (transient ischemic [...] PM EST): Symptoms well controlled on omeprazole half-way current use of anticoagulant therapy 0 05/10/2004 [...] as of this encounter (statuses as of 05/10/2024) Resolved Problems Problem Noted Date Diagnosed Date [...] IM/IV Chest Xray Additional Comments: Followed by furnace reliner - Dr. Rashel Sales [facility] Assessment & Plan (12/07/2022 2:00 PM EDT): [...] 40mg IM/IV CBC Chest Xray Followed by furnace reliner - [facility] Ras[facility] (07/12/2011): Per CKD protocol #1 [employer] Other*[id number] 06/02/2010 04/18/2011 Overview (06/02/2010): PROJECT: #[id number], SPONSOR: Aileen, PI: Adolfo De Jesus MD [...] can be closed. CONTACT: Roberto Carlos Huertas, Filtering Machine Tender Type 2 diabetes mellitus wit h hemoglobin A1c goal of less than 7.0% 04/24/2010 08/29/2018 Overview (06/14/2015): ICD-10 update of inactive term ACTIVE CASE MANAGEMENT Kassie Anthony RN [phone] 05/10/19 10 12/05/2009 ADVANCE DIRECTIVE INFORMATION [...] as of this encounter (statuses as of 05/10/2024) Immunizations Name Administration Dates Next Due COVID-19 mRNA, LNP-s, No Pre serve, 2-Dose Series (Moderna) 04/19/2020,03/22/2020 COVID-19, MRNA-LNP, PF, 30 M CG/0.3 mL, 12 YRS AND ABOVE, IM (Ceon-Comirnaty) 12/03/2022 COVID-19, mRNA, LNP-s, PF, B ooster, [...] s 10/28/2023 Does the household have a re gular source of income? (Household - for ages [...] Maury Thacker RN documented in this encounter Miscellaneous Notes * Telephone Encounter - Silvia Govea RPh - 05/10/2024 11:52 AM EDT Refused Prescriptions: Disp Refills guaiFENesin-Codeine 100-10 MG/5ML Oral Sally*120 mL 0 Sig: TAKE 5ml BY MOUTH THREE TIMES DAILY NEEDED FOR coughRefused By: SILVIA GOVEA for Refusal: Course of treatment completeReason for Refusal Comment: acute documented in this encounter Plan of Treatment Upcoming Encounters Date Type Department Care Team (Late st Contact Info) Description 05/11/2024 9:30 AM EDT [facility] [address] [place] [phone] Jeevan Chavez [address] [place] [address] 05/11/2024 6:00 PM EDT Anticoagulation [facility] Clinical [facility]acy Services, Denia Yee [address] [place] [address] [place] [address] Ccps, [address] [place] [address] 05/15/2024 3:00 PM EDT Office Visit Gastroenterology, [place] [address] [place] [address] Cat Kenny PA-C [address] [place] [address] 05/19/2024 1:30 PM EDT Office Visit Allergy/Immunology [facility] [address] [place] [address] Macario Pathak MD [address] [place] [address] 06/11/2024 5:00 PM EDT [facility] [address] [facility] [place] [address] Valentina Laws RN [facility] [address] 06/23/2024 2:00 PM EDT Office Visit Hematology/Oncology [facility] [address] [place] [phone] Bouchra Del Cid CRNP [address] [facility] [place] [address] 06/24/2024 1:40 PM EDT Office Visit Family Medicine [address] [place] [phone] Shara Ray MD [address] [place] [address] [place] [address] 07/14/2024 3:00 PM EDT Cardiac Studies Cardiac Studies, [facility] [address] [place] [address] 07/15/2024 2:00 PM EDT Office Visit Cardiology, [facility] [address] [place] [phone] Maria Ines Bowers CRNP [address] [place] [address] 08/20/2024 3:00 PM EDT Office Visit Nephrology [address] [place] [address] Aliyah Lacey MD [address] [place] [address] 12/09/2024 10:00 AM EDT Office Visit Cardiology, [facility] [address] [place] [phone] Hadley Molina MD [address] [place] [address] 01/08/2025 2:00 PM EST Office Visit Family Medicine [address] [place] [address] Shara Ray MD [address] [place] [address] [place] [address] 03/01/2025 2:40 PM EST Office Visit Nephrology [address] [place] [address] Aliyah Lacey MD [address] [place] [address] Scheduled Procedures Name Priority Associated Diagnoses Date/Ti me COLONOSCOPY FLEXIBLE PROXIMAL DIAGNOSTIC Recall Screen for colon cancer Health Maintenance Due Date Last Done Comments Cologuard 1998 Sigmoidoscopy 1998 Fecal Occult Blood Test 03/26/2014 03/26/19 14, 11/20/2010, 11/09/2009 Colonoscopy 02/23/2023 02/24/2020, 010 07/2020, 07/16/2013, Additional history exists Colorectal Cancer [...] Additional history exists CKD PHOS USE SMARTSET 05396 03/23/2025 02/0 04/2024, 03/22/2024, 03/21/2024, Additional history exists CKD HGB USE SMARTSET 69741 03/25/202503/25, 03/23/2024, 03/22/2024, Additional history exists DTap/Tdap [...] this encounter Medical Devices Implanted Type Area Fire Inspector Device Identifier Shelf Expiration Date Model / Serial / Lot [place] Suture Biocomposite - Sn/A - [id number] Implanted:Qty: 2 on 12/13/2021 by Moris Jmienez, DO at OR [facility] Left: Leg Lower [employer] 07/18/2024 [id number] / N/A / [id number] Vitoss Bbtrauma Foam Pack - [id number] - [id number] Implanted:Qty: 1 on 12/13/2021 by Moris Jimenez DO at OR [facility] Left: Leg Lower MICHA : TRAUMA 01/15/[id number] / [id number] / [id number] System Delivery Triclip Xtw - [id number] Implanted:Qty: 1 on 03/18/2024 at [facility] R People 08/11/2025 [id number] / / documented as of this encounter Visit Diagnoses Diagnosis Gastroesophageal reflux disease with esophagitis without hemorrhage- Primary Type 2 diabetes mellitus with stage 3b chronic kidney disease, without long-term current use of insulin (HCC) Permanent atrial fibrillation (HCC) Atrial fibrillation Restless legs syndrome Restless legs syndrome (RLS) S/P mitral valve replacement Heart valve replaced by other means Hypertensive heart and kidney disease with chronic diastolic congestive heart failure and stage 3b chronic kidney disease (HCC) Recurrent falls Personal history of fall Hypertensive heart and kidney disease with chronic diastolic congestive heart failure and stage 3b chronic kidney disease (HCC)- Primary Intramuscular hematoma- Primary Contusion of unspecified site Permanent atrial fibrillation (HCC) Atrial fibrillation Chronic obstructive pulmonary disease, unspecified COPD type (HCC) Old myocardial infarct Old myocardial infarction Type 2 diabetes mellitus with stage 3b chronic kidney disease, without long-term current use of insulin (HCC) Hypothyroidism, postablative Other postablative hypothyroidism Generalized anxiety disorder Permanent atrial fibrillation (HCC)- Primary Atrial fibrillation Type 2 diabetes mellitus with stage 3b chronic kidney disease, without long-term current use of insulin (HCC) Hypertensive heart and kidney disease with chronic diastolic congestive heart failure and stage 3b chronic kidney disease (HCC) COPD, group B, by GOLD 2017 classification ([facility]) Gastroesophageal reflux disease with esophagitis without hemorrhage Hypothyroidism, postablative Other postablative hypothyroidism Dyslipidemia, goal LDL below 100 Other and unspecified hyperlipidemia Restless legs syndrome Restless legs syndrome (RLS) Iron deficiency anemia, unspecified iron deficiency anemia type Hypertensive heart and kidney disease with chronic diastolic congestive heart failure and stage 3b chronic kidney disease (HCC)- Primary COPD, group B, by GOLD 2017 classification ([facility]) Major depressive disorder, recurrent, moderate (HCC) Major depressive disorder, recurrent episode, moderate Other persistent atrial fibrillation (HCC) Generalized anxiety disorder Atherosclerosis of [place] coronary artery without angina pectoris, unspecified whether tanana or transplanted heart Hypothyroidism, postablative Other postablative hypothyroidism Dyslipidemia, goal LDL below 100 Other and unspecified hyperlipidemia Bronchitis, complicated Bronchitis, not specified as acute or chronic documented in this encounter Advance Directives * [...] Advance Directives occurred with: Patient Care Teams Profiling Machine Set Up Operator Relationship Specialty Start Date End Date Shara Ray MD [address] [place] [address] [place] [address] PCP - General Family Medicine 12/30/23 documented as of this encounter
--- OUTSIDE RECORDS SUMMARY | 2024-05-12 09:03 | External Medical Summary | Summary of Care ---
Author Name Unknown Organization [facility] Address [address] [facility] [place] [address] Phone [phone] Care Team Providers Care Concrete Pavement Installer Name Role Phone Shara Ray MD Primary Care Provide r Reason for Visit * Reason Onset Date Comments Medication Refill 05/09/2024 Encounter Details Date Type Department Care Team (Late st Contact Info) Description 05/09/2024 Refill [facility] [place] [address] [place] [address] Ana María Carroll PA-C [address] [place] [address] Cough Allergies Active Allergy Reactions Criticality Noted Date [...] needed 50 mL 12/07/19 23 Active Nystatin 762649 UNIT/ML Mouth/Throat SuspensionIndicati ons:Thrush Swish and swallow [...] as needed for Pain, Severe. 60 Tablet 4 7:46 AM EST 03/08/19 24 Active Additional [...] disease, without long-term current use of insulin ([facility]) Use as directed. 100 Each 11 07/25/19 Active Glucose Blood In Vitro StripIndications:T ype 2 diabetes mellitus with stage 3b chronic kidney disease, without long-term current use of insulin ([facility]) Use as directed. 100 Strip 11 07/25/19 24 Active Albuterol Sulfate HFA 108 (90 Base) MCG/ACT Inhalation Aerosol Solution INHALE TWO PUFFS BY MOUTH EVERY MORNING, TWO PUFFS EVERY EVENING AND 2 puffs EVERY 4 HOURS NEEDED FOR WORSENING COUGH, CHEST TIGHTNESS, FOR WHEEZING OR FOR SHORTNESS OF BREATH 54 g 2 5 6:10 PM EST 07/30/19 24 025 Active Omeprazole 20 MG Oral Capsule Delayed Release (PriLOSEC)Indicati ons:Encounter for long-term (current) use of medications,Gastro esophageal reflux disease with esophagitis Take 1 Capsule by mouth in the morning. 100 Capsule 3 4 12:56 PM EST 08/05/19 24 Active Additional Information Patient taking differently:20 mg OralQ-1999, Reported on 05/08/2024 rOPINIRole HCl 2 MG Oral Tablet (Requip)Indication s:Restless legs syndrome Take 1 Tablet by mouth in the morning and 1 Tablet at noon and 1 Tablet before bedtime. 300 Tablet 3 5 2:51 PM EDT 10/22/19 24 Active Additional Information Patient taking differently:2 mg OralHS, Reported on 05/08/2024 Combivent Respimat 20-100 MCG/ACT Inhalation Aerosol Solution (Ipratropium-Albut keila) inhale 1 puff by mouth four times daily As Needed for Shortness Of Breath 12 g 2 5 8:57 AM EDT 11/04/19 24 Active Metoclopramide HCl 10 MG Oral Tablet (Reglan)Indication s:Nausea TAKE ONE TABLET BY MOUTH EVERY MORNING 30 MINUTES BEFORE A MEAL 100 Tablet 1 5 6:15 AM EST 11/12/19 24 025 Active Rosuvastatin Calcium 10 MG Oral Tablet (Crestor) Take 1 Tablet by mouth in the morning. 100 Tablet 1 5 5:12 PM EST 11/25/19 24 Active Folic Acid 1 MG Oral TabletIndications: Mild protein-calorie malnutrition (HCC) TAKE ONE TABLET BY MOUTH EVERY MORNING 100 Tablet 1 5 3:59 PM EST 01/20/20 24 025 Active Nitroglycerin 0.4 MG Sublingual Tablet Sublingual (Nitrostat)Indicat ions:Old myocardial infarct,Atrial fibrillation (HCC),HTN, goal to be determined PLACE 1 TABLET UNDER THE TONGUE EVERY 5 MINUTES UP TO 3 DOSES NEEDED FOR CHEST PAIN. IF NO RELIEF CALL 911 OR GO TO ER 75 Tablet 4 12:34 PM EST 02/15/20 24 Active Warfarin Sodium 2.5 MG Oral Tablet (Coumadin) Take as instructed by coumadin pharmacist/clin ic 180 Tablet 1 03/23/19 25 Active Torsemide 100 MG Oral Tablet (Demadex) Take 1 Tablet by mouth in the morning. 90 Tablet 3 5 6:43 PM EST 03/31/19 25 Active Additional [...] BREAKFAST OR OTHER MEDS 100 Tablet 1 5 1:51 PM EDT 04/28/19 25 Active Potassium [...] shortness of breath or wheezing 1080 mL 5 2:51 PM EDT 05/06/19 25 Active Azelastine HCl 0.1 % Nasal Solution (Astelin) ADMINISTER TWO SPRAYS INto both nostrils in THE MORNING AND TWO SPRAYS BEFORE BEDTIME 30 mL 2 5 12:05 PM EDT 05/09/19 25 026 Active [...] Cough. 30 Capsule 1 05/12/19 25 Active Benzonatate 100 MG Oral CapsuleIndications :Cough Take 1 Capsule by mouth 3 times a day as needed for Cough. 30 Capsule 1 04/24/19 25 025 Discontin ued(Refil l) documented as of this encounter (statuses as of 05/11/2024) Active Problems Problem Noted Date Diagnosed Date S/P tricuspid valve repair 04/09/2024 Hypothyroidism 04/09/2024 Hyperparathyroidism 04/09/2024 Moderate tricuspid regurgitation 03/23/2024 Esophageal dysmotility 03/23/2024 Chronic right-sided heart failure 03/20/2024 Atherosclerosis of [place] co ronary artery of [place] heart without angina pectoris 04/03/2023 Major depressive [...] leg, left, subsequent encounter 09/2021 Overview (12/05/2021): [facility] ER ulstrasound shows hematoma calf, [...] Assessment & Plan (07/10/2021 12:27 PM EDT): [facility] Call: I would have her [...] and amiodarone. On warfarin being managed by [facility] pharmacy. History of TIA (transient ischemic [...] IM/IV Chest Xray Additional Comments: Followed by cryptologic support specialist - Dr. Rashel Sales [facility] Assessment & Plan (12/07/2022 2:00 [...] 40mg IM/IV CBC Chest Xray Followed by cryptologic support specialist - Dr. Rashel Sales [facility] Complicated UTI (urinary tract infection) [...] (07/12/2011): Per CKD protocol #1 [employer] Other*[id number] 06/02/2010 04/18/2011 Overview (06/02/2010): PROJECT: #[id number], SPONSOR: Aileen, PI: Adolfo De Jesus MD [...] can be closed. CONTACT: Roberto Carlos Huertas, Trimming Cutter Machine Type 2 diabetes mellitus wit h hemoglobin A1c goal of less than 7.0% 04/24/2010 08/29/2018 Overview (06/14/2015): ICD-10 update of inactive term ACTIVE CASE MANAGEMENT Kassie Anthony RN [phone] 05/10/1912/05/2009 ADVANCE DIRECTIVE INFORMATION 05/09/2009 04/26/2021 Overview (05/09/2009): No, Advance Directive brochure given to patient. Dyslipidemia, goal LDL below 100 02/03/2009 09/24/2013 Overview (02/03/2009): Per Lipid Taxonomy. Other abnormal glucose 03/13/200509/24 Mixed dyslipidemia 04/08/2002 Overview (02/03/2009): Per Lipid Taxonomy. Anticoagulation management [...] CG/0.3 mL, 12 YRS AND ABOVE, IM [facility]) 12/03/2022 COVID-19, mRNA, LNP-s, PF, [...] s 10/28/2023 Does the household have a [facility] source of income? (Household - for ages [...] encounter Miscellaneous Notes * Telephone Encounter - Ana María Carroll PA-C - 05/11/2024 8:59 AM EDTSigned Prescriptions: Disp Refills Benzonatate 100 MG Oral Capsule 30 Cap*1 Sig: Take 1 Capsule by mouth 3 times a day as needed for Cough.Authorizing Provider: ANA MARÍA CARROLL documented in this encounter Plan of Treatment Upcoming Encounters Date Type Department Care Team (Late st Contact Info) Description 05/11/2024 6:00 PM EDT Anticoagulation [facility] Clinical Pharmacy Services, Denia Yee [address] [place] [address] [place] [address] [place] [address] 05/15/2024 3:00 PM EDT Office Visit Gastroenterology, [place] [address] [place] [address] Cat Kenny PA-C [address] [place] [address] 05/19/2024 1:30 PM EDT Office Visit Allergy/Immunology [facility] [place] [address] [place] [address] Macario Pathak MD [address] [place] [address] 06/11/2024 5:00 PM EDT [facility] Visit [facility] [place] [address] Valentina Laws RN 132 [facility] [place] [address] 06/23/2024 2:00 PM EDT Office Visit Hematology/Oncology [facility] [address] [facility] [place] [phone] Bouchra Del Cid CRNP [address] [place] [address] 06/24/2024 1:40 PM EDT Office Visit Family Medicine [address] [place] [phone] Shara Ray MD [address] [place] [address] [place] [address] 07/14/2024 3:00 PM EDT Cardiac Studies [facility] Studies, [facility] [address] [facility] [place] [phone] 07/15/2024 2:00 PM EDT Office Visit Cardiology, [facility] [address] [place] [phone] Maria Ines Bowers CRNP [address] [place] [address] 08/20/2024 3:00 PM EDT Office Visit Nephrology [address] [place] [address] Aliyah Lacey MD [address] [place] [address] 12/09/2024 10:00 AM EDT Office Visit Cardiology, [facility] [address] [place] [phone] Hadley Molina MD [address] [place] [address] 01/08/2025 2:00 PM EST Office Visit Family Medicine [address] [place] [phone] Shara Ray MD [address] [place] [address] [place] [address] 03/01/2025 2:40 PM EST Office Visit Nephrology [address] [place] [address] Aliyah Lacey MD [address] [place] [address] Scheduled Procedures Name Priority Associated Diagnoses Date/Ti [...] 05/19, 06/28/2021, Additional history exists COVID-19 Vaccine (2023- season) 2024 01/02/2024, 12/03/2022, 11/29/2021, Additional history exists HbA1c 09/11/2024 03/14/2024, 07/19, 04/24/2023, Additional history exists Albumin/Creatinine Ratio 09/25/2024 024, 05/07/2023, 12/03/2022, Additional history exists Depression Monitoring 10/27/2024 10/28/2023 GFR 11/08/2024 05/08/2024, 04/18, 04/22/2024, Additional history exists Mammogram 11/26/2024 11/27/2023, 10/20, 11/15/2022, Additional history exists CKD PHOS USE SMARTSET 14384 03/23/2025 02/0 04/2024, 03/22/2024, 03/21/2024, Additional history exists CKD HGB USE SMARTSET 71440 03/25/202503/25, 03/23/2024, 03/22/2024, Additional history exists DTap/Tdap [...] this encounter Medical Devices Implanted Type Area Automotive Electrical Fitter Device Identifier Shelf Expiration Date Model / Serial / Lot [place] Suture Biocomposite - Sn/A - [id number] Implanted:Qty: 2 on 12/13/2021 by Moris Jimenez DO at OR [facility] Left: Leg Lower [employer] 07/18/2024 [id number] / N/A / [id number] Vitoss Bbtrauma Foam Pack - [id number] - [id number] Implanted:Qty: 1 on 12/13/2021 by Moris Jimenez DO at OR [facility] Left: Leg Lower MICHA : TRAUMA 01/15/2022 [id number] / [id number] / [id number] System Delivery Triclip Xtw - [id number] Implanted:Qty: 1 on 03/18/2024 at [facility] [employer] 08/11/2025 [id number] / / documented as of this [...] COPD, group B, by GOLD 2017 classification ([facility]) Gastroesophageal reflux disease with esophagitis without hemorrhage Hypothyroidism, postablative Other postablative hypothyroidism Dyslipidemia, goal LDL below 100 Other and unspecified hyperlipidemia Restless legs syndrome Restless legs syndrome (RLS) Iron deficiency anemia, unspecified iron deficiency anemia type Hypertensive heart and kidney disease with chronic diastolic congestive heart failure and stage 3b chronic kidney disease (HCC)- Primary COPD, group B, by GOLD 2017 classification ([facility]) Major depressive disorder, recurrent, moderate (HCC) Major depressive disorder, recurrent episode, moderate Other persistent atrial fibrillation (HCC) Generalized anxiety disorder Atherosclerosis of [place] coronary artery without angina pectoris, unspecified whether [place] or transplanted heart Hypothyroidism, postablative Other postablative hypothyroidism Dyslipidemia, goal LDL below 100 Other and unspecified hyperlipidemia Cough documented in this encounter Advance Directives * [...] Advance Directives occurred with: Patient Care Teams Concrete Pavement Installer Relationship Specialty Start Date End Date Shara Ray MD [address] [place] [address] [place] [address] PCP - General Family Medicine 12/30/23 documented as of this encounter
--- OUTSIDE RECORDS SUMMARY | 2024-05-12 09:03 | External Medical Summary ---
Author Name Unknown Address Unknown Organization K0G[facility] [address] [place] [address] Laboratory Report Ordering Provider Test Date Status SONIA PANTOJA 05/11/2024 12:41:38 Final Standing order for pt/inr. < br/>Please draw pt/inr every 1 to 4 weeks as requested.
Results to [facility]

Warfarin Therapy
INR: 2.0-3.0 conventional anticoagulation
INR: 2.5-3.5 high intensity anticoagulation Observation Date Value Abnormality Reference (Units ) Status PT 05/11/2024 12:41:38 31.8 Above high normal 11 .6-15.2 (seconds) Final INR 05/11/2024 12:41:38 3.0 Above high normal 0. 8-1.2 Final Performing Location [facility] [address] [place] [address]
--- OUTSIDE RECORDS SUMMARY | 2024-05-12 09:04 | External Medical Summary | Summary of Care ---
Author Name Unknown Organization [facility] Address [address] [facility] [place] [address] Phone [phone] Care Team Providers Care Manufacturing Engineering Manager Name Role Phone Shara Ray MD Primary Care Provide r Reason for Visit * Reason Comments Dosage Adjustment Via Phone (anticoag Cl inic) Encounter Details Date Type Department Care Team (Late st Contact Info) Description 05/08/2024 6:00 PM EDT Anticoagulation Centralized Clinical Pharmacy Services, [address] [place] [id number] [place] [address] [facility] current use of anticoagulant therapy*; History of [...] as of this encounter (statuses as of 05/08/2024) Medications acetaminophen (TYLENOL) 500 MG Tablet Take [...] needed 50 mL 12/07/19 23 Active Nystatin 015593 UNIT/ML Mouth/Throat SuspensionIndicati ons:Thrush Swish and swallow [...] [facility]) Use as directed. 100 Each 07/25/19 Active Glucose Blood In Vitro StripIndications:T ype 2 diabetes mellitus with stage 3b chronic kidney disease, without long-term current use of insulin ([facility]) Use as directed. 100 Strip 07/25/19 24 [...] 3:59 PM EST 01/20/20 24 025 Active Metoprolol Succinate ER 50 MG Oral Tablet Extended Release 24 Hour (toPROL XL) Take 1 Tablet by mouth in the morning. 90 Tablet 1 05/05/2024 3:48 PM EDT 01/22/20 24 Active Nitroglycerin 0.4 MG Sublingual Tablet Sublingual [...] by mouth at bedtime. 04/30/19 25 Active documented as of this encounter (statuses as of 05/08/2024) Active Problems Problem Noted Date Diagnosed Date S/P tricuspid valve repair 04/09/2024 Hypothyroidism 04/09/2024 Hyperparathyroidism 04/09/2024 Moderate tricuspid regurgitation 03/23/2024 Esophageal dysmotility 03/23/2024 Chronic right-sided heart failure 03/20/2024 Atherosclerosis of [place] co ronary artery of [place] heart without angina pectoris 04/03/2023 Major depressive [...] leg, left, subsequent encounter 09/2021 Overview (12/05/2021): [facility] ER ulstrasound shows hematoma calf, INR [...] in the Comments) Remote Patient Monitoring Vendor: [facility] Device(s): Connected Scale Self - Management Plan [...] Assessment & Plan (07/10/2021 12:27 PM EDT): [facility] Call: I would have her do [...] and amiodarone. On warfarin being managed by [facility] pharmacy. History of TIA (transient ischemic attack) [...] PM EST): Symptoms well controlled on omeprazole [facility] current [...] as of this encounter (statuses as of 05/08/2024) Resolved Problems Problem Noted Date Diagnosed Date [...] IM/IV Chest Xray Additional Comments: Followed by celebrity chef entrepreneur media personality - Dr. Rashel Sales [facility] Assessment & Plan (12/07/2022 2:00 PM [...] 40mg IM/IV CBC Chest Xray Followed by celebrity chef entrepreneur media personality - Dr. Rashel Sales [facility] Complicated UTI (urinary tract infection) 12/20/2021 [...] (07/12/2011): Per CKD protocol #1 [employer] Other*[id number] 06/02/2010 04/18/2011 Overview (06/02/2010): PROJECT: #[id number], SPONSOR: Aileen, PI: Adolfo De Jesus MD [...] can be closed. CONTACT: Roberto Carlos Huertas, Carbide Tool Maker Type 2 diabetes mellitus wit h [...] as of this encounter (statuses as of 05/08/2024) Immunizations Name Administration Dates Next Due COVID-19 mRNA, LNP-s, No Pre serve, 2-Dose Series (Moderna) 04/19/2020,03/22/2020 COVID-19, MRNA-LNP, PF, 30 M CG/0.3 mL, 12 YRS AND ABOVE, IM (Kwikpik-Comirnaty) 12/03/2022 COVID-19, mRNA, LNP-s, PF, B ooster, [...] documented in this encounter Progress Notes * Kirby Gates, [facility] - 05/08/2024 3:40 PM EDT Images from the original note were not included. Medication Therapy Disease Management - Anticoagulation Patient: Abdi Tello Dash | : 1955 Subjective Contacts Contact Date/Time Type Contact Phone/Fax 05/08/2024 03:47 PM EDT Phone (Outgoing) Abdi Bowling (Self) [phone] (M) Spoke to Patient Patient-Reported Symptoms: Patient Findings Positives: Change in health (getting over a cold), Change in diet/appetite (appetite down recently but improving still) Negatives: Signs/symptoms of thrombosis, Signs/symptoms of bleeding, Change in alcohol use, Change in activity, Upcoming invasive procedure, Missed doses, Extra doses, Change in medications, Bruising Comments: Spoke with pt. She usually does not hold doses of warfarin per cardiology, but given how high the INR is she is agreeable to hold another dose today and take a lower dose again tomorrow. INR should continue to come down as pt feels better and appetite improves, but she is aware we would recommend skipping a few doses due to how high the level is. Will repeat INR on Saturday at the lab. Objective Current Warfarin Dose As of 05/08/2024 Warfarin maintenance plan: 7.5 mg (2.5 mg x 3) every Mon; 5 mg (2.5 mg x 2) all other days INR Result As of 05/08/2024 INR goal: 3.0-3.5 INR used for dosin.2 (05/08/2024) Assessment & Plan Warfarin Plan As of 05/08/2024 Full warfarin instructions: 05/08: Hold; 05/09: 2.5 mg; Otherwise 7.5 mg every Mon; 5 mg all other days Next INR check: 05/11/2024 Repeat PT/INR in 3 day(s) Weekly dose: not changed Additional Dosing Information: Description GML WedFri, prefers Wed ([facility], [facility], or [facility]) Please also send myG message Kirby Gates RPh Clinical Pharmacist 05/08/2024, 3:40 PM documented in this encounter Plan of Treatment Upcoming Encounters Date Type Department Care Team (Late st Contact Info) Description 05/11/2024 9:30 AM EDT Laboratory Laboratory, [facility] [address] [facility] [place] [phone] [facility] [address] [facility] [place] [address] 05/11/2024 6:00 PM EDT Anticoagulation Centralized Clinical Pharmacy Services, Denia Yee [address] [place] [address] [place] [address] [place] [address] 05/15/2024 3:00 PM EDT Office Visit Gastroenterology, [place] [address] [place] [address] Cat Kenny PA-C [address] [place], [place] [phone] 05/19/2024 1:30 PM EDT Office Visit Allergy/Immunology [facility] [address] [place] [address] Macario Pathak MD [address] [place] [address] 06/11/2024 5:00 PM EDT [facility] [address] [place] [address] Valentina Laws RN [address] [place] [address] 06/23/2024 2:00 PM EDT Office Visit Hematology/Oncology [facility] [address] [place] [phone] Bouchra Del Cid CRNP [address] [place] [address] [place] [address] 06/24/2024 1:40 PM EDT Office Visit Family Medicine [address] [place] [phone] Shara Ray MD [address] [place] [address] [place] [address] 07/14/2024 3:00 PM EDT Cardiac Studies Cardiac Studies, [facility] [address] [place] [phone] 07/15/2024 2:00 PM EDT Office Visit Cardiology, [facility] [address] [place] [phone] Maria Ines Bowers CRNP [address] [place] [address] 08/20/2024 3:00 PM EDT Office Visit Nephrology [address] [place] [address] Aliyah Lacey MD [address] [place] [address] 12/09/2024 10:00 AM EDT Office Visit Cardiology, [facility] [address] [place] [phone] Hadley Molina MD [address] [place] [address] 01/08/2025 2:00 PM EST Office Visit Family Medicine [address] [place] [phone] Shara Ray MD [address] [place] [address] [place] [address] 03/01/2025 2:40 PM EST Office Visit Nephrology [address] [place] [address] Aliyah Lacey MD [address] [place] [address] Scheduled Procedures Name Priority Associated Diagnoses Date/Ti [...] Additional history exists CKD PHOS USE SMARTSET 19108 03/23/2025 02/0 04/2024, 03/22/2024, 03/21/2024, Additional history exists CKD HGB USE SMARTSET 48164 03/25/202503/25, 03/23/2024, 03/22/2024, Additional history exists DTap/Tdap [...] this encounter Medical Devices Implanted Type Area Home Therapy Clinician Device Identifier Shelf Expiration Date Model / Serial / Lot [place] Suture Biocomposite - Sn/A - [id number] Implanted:Qty: 2 on 12/13/2021 by Moris Jimenez, DO at OR [facility] Left: Leg Lower [employer] 07/18/2024 [id number] / N/A / [id number] Vitoss Bbtrauma Foam Pack - [id number] - [id number] Implanted:Qty: 1 on 12/13/2021 by Moris Jimenez, DO at OR [facility] Left: Leg Lower MICHA : TRAUMA 01/15/2022 [id number] / [id number] / [id number] System Delivery Triclip Xtw - [id number] Implanted:Qty: 1 on 03/18/2024 [place] [facility] [employer] 08/11/2025 [id number] / / documented as of this [...] COPD, group B, by GOLD 2017 classification ([facility]) Gastroesophageal reflux disease with esophagitis without hemorrhage [...] fibrillation (HCC) Generalized anxiety disorder Atherosclerosis of [place] coronary artery without angina pectoris, unspecified whether [place] or transplanted heart Hypothyroidism, postablative Other postablative hypothyroidism Dyslipidemia, goal LDL below 100 Other and unspecified hyperlipidemia [facility] current use of anticoagulant therapy- Primary [...] Advance Directives occurred with: Patient Care Teams Manufacturing Engineering Manager Relationship Specialty Start Date End Date Shara Ray MD [address] [place] [address] [place] [address] PCP - General Family Medicine 12/30/23 documented as of this encounter
--- OUTSIDE RECORDS SUMMARY | 2024-05-12 09:04 | External Medical Summary | Summary of Care ---
Author Name Unknown Organization [facility] Address [address] [place] [facility] [place] [address] Phone [phone] Care Team Providers Care Sewer Line Repairer Name Role Phone Shara Gorman MD Primary Care Provide r Reason for Visit * Reason Comments Medication Refill Encounter Details Date Type Department Care Team (Late st Contact Info) Description 05/09/2024 Refill Family [address] [place] [address] Shara Gorman MD [address] [place] [address] [place] [address] Allergies Active Allergy Reactions Criticality Noted Date [...] as of this encounter (statuses as of 05/09/2024) Medications acetaminophen (TYLENOL) 500 MG Tablet Take [...] needed 50 mL 12/07/19 23 Active Nystatin 349051 UNIT/ML Mouth/Throat SuspensionIndicati ons:Thrush Swish and swallow [...] without long-term current use of insulin ([facility]) Check your glucose daily as [...] morning. 90 Tablet 1 05/10/19 25 Active Metoprolol Succinate ER 50 MG Oral Tablet Extended Release 24 Hour (toPROL XL) Take 1 Tablet by mouth in the morning. 90 Tablet 1 5 3:48 PM EDT 01/22/20 24 025 Discontin ued(Refil l) documented as of this encounter (statuses as of 05/09/2024) Active Problems Problem Noted Date Diagnosed Date S/P tricuspid valve repair 04/09/2024 Hypothyroidism 04/09/2024 Hyperparathyroidism 04/09/2024 Moderate tricuspid regurgitation 03/23/2024 Esophageal dysmotility 03/23/2024 Chronic right-sided heart failure 03/20/2024 Atherosclerosis of [place] co ronary artery of [place] heart without angina pectoris 04/03/2023 Major depressive [...] leg, left, subsequent encounter 09/2021 Overview (12/05/2021): [facility] ER ulstrasound shows hematoma [...] in the Comments) Remote Patient Monitoring Vendor: [facility] Device(s): Connected Scale Self - Management Plan [...] wed, fri. 80 mg , , sat, sun Spironolactone 12.5 mg daily Assessment & Plan (07/10/2021 12:27 PM EDT): [facility] Call: I would have her do [...] and amiodarone. On warfarin being managed by [facility] pharmacy. History of TIA (transient ischemic [...] PM EST): Symptoms well controlled on omeprazole local intermodal [...] as of this encounter (statuses as of 05/09/2024) Resolved Problems Problem Noted Date Diagnosed Date [...] IM/IV Chest Xray Additional Comments: Followed by mine safety manager - Dr. Rashel Sales [facility] Assessment & Plan (12/07/2022 2:00 PM EDT): [...] 40mg IM/IV CBC Chest Xray Followed by mine safety manager - Dr. Rashel Sales [facility] Complicated UTI (urinary tract infection) 12/20/2021 05/17/2022 [...] (07/12/2011): Per CKD protocol #1 [employer] Other*[id number] 06/02/2010 04/18/2011 Overview (06/02/2010): PROJECT: #[id number], SPONSOR: Aileen, PI: Adolfo De Jesus MD [...] can be closed. CONTACT: Roberto Carlos Huertas, Flight Dispatcher Type 2 diabetes mellitus wit h hemoglobin [...] as of this encounter (statuses as of 05/09/2024) Immunizations Name Administration Dates Next Due COVID-19 mRNA, LNP-s, No Pre serve, 2-Dose Series (Moderna) 04/19/2020,03/22/2020 COVID-19, MRNA-LNP, PF, 30 M CG/0.3 mL, 12 YRS AND ABOVE, IM ([facility]) 12/03/2022 COVID-19, mRNA, LNP-s, PF, B [...] s 10/28/2023 Does the household have a [facility] hospital[facility] source of income? (Household - for [...] encounter Miscellaneous Notes * Telephone Encounter - Montrell Sheth RPh - 05/09/2024 4:43 PM EDT Signed Prescriptions: Disp Refills Metoprolol Succinate ER 50 MG Oral Tablet *90 Tab*1 Sig: Take 1 Tablet by mouth in the morning.Authorizing Provider: Marlene GORMAN User: MONTRELL SHETH Electronically signed by Montrell Sheth [facility] at 05/09/2024 4:43 PM EDT documented in this encounter Plan of Treatment Upcoming Encounters Date Type Department Care Team (Late st Contact Info) Description 05/11/2024 9:30 AM EDT Laboratory Laboratory, [address] [place] [phone] [facility]evan mccrary[facility] [address] [facility] [place] [address] 05/11/2024 6:00 PM EDT Anticoagulation Centralized Clinical Pharmacy Services, Denia Yee [address] [place] [address] [place] [address] [facility], [address] [place] [address] 05/15/2024 3:00 PM EDT Office Visit Gastroenterology, [place] [address] [place] [address] Cat Kenny PA-C [address] [place], [place] [phone] 05/19/2024 1:30 PM EDT Office Visit Allergy/Immunology [facility] [address] [place] [address] Macario Pathak MD [address] [place] [address] 06/11/2024 5:00 PM EDT [facility], [facility] [address] [place] [place] [address] Valentina Laws RN [address] [place] [address] 06/23/2024 2:00 PM EDT Office Visit Hematology/Oncology [facility] [address] [place] [phone] Bouchra Del Cid CRNP [address] [place], [place] [address] [address] 06/24/2024 1:40 PM EDT Office Visit Family Medicine [address] [place] [address] Shara Gorman MD [address] [place] [address] [place] [address] 07/14/2024 3:00 PM EDT Cardiac Studies Cardiac Studies, [facility] [address] [place] [address] 07/15/2024 2:00 PM EDT Office Visit Cardiology, [facility] [address] [place] [address] Maria Ines Bowers CRNP [address] [place] [address] 08/20/2024 3:00 PM EDT Office Visit Nephrology [address] [place] [address] Aliyah Lacey MD [address] [place] [address] 12/09/2024 10:00 AM EDT Office Visit Cardiology, [facility] [address] [place] [phone] Hadley Molina MD [address] [place] [address] 01/08/2025 2:00 PM EST Office Visit Family Medicine [address] [place] [address] Shara Gorman MD [address] [place] [address] [place] [address] 03/01/2025 2:40 PM EST Office Visit Nephrology [address] [place] [address] Aliyah Lacey MD [address] [place] [address] Scheduled Procedures Name Priority Associated Diagnoses Date/Ti [...] Additional history exists CKD PHOS USE SMARTSET 51415 03/23/2025 02/0 04/2024, 03/22/2024, 03/21/2024, Additional history exists CKD HGB USE SMARTSET 70934 03/25/202503/25, 03/23/2024, 03/22/2024, Additional history exists DTap/Tdap [...] this encounter Medical Devices Implanted Type Area Seasonal Recruiter Device Identifier Shelf Expiration Date Model / Serial / Lot [place] Suture Biocomposite - Sn/A - [id number] Implanted:Qty: 2 on 12/13/2021 by Moris Jimenez DO at OR [facility] Left: Leg Lower [employer] 07/18/2024 [id number] / N/A / [id number] Vitoss Bbtrauma Foam Pack - [id number] - [id number] Implanted:Qty: 1 on 12/13/2021 by Moris Jimenez, at OR [facility] Left: Leg Lower MICHA : TRAUMA 01/15/2022 [id number] / [id number] / [id number] System Delivery Triclip Xtw - [id number] Implanted:Qty: 1 on 03/18/2024 at [facility] 08/11/2025 [id number] / / documented as of this encounter Advance Directives [...] Advance Directives occurred with: Patient Care Teams Sewer Line Repairer Relationship Specialty Start Date End Date Shara Gorman MD [address] [place] [address] [place] [address] PCP - General Family Medicine 12/30/23 documented as of this encounter
--- OUTSIDE RECORDS SUMMARY | 2024-05-12 09:05 | External Medical Summary | Summary of Care ---
Author Name Unknown Organization [facility] Address [address] [place] [facility] [place] [address] Phone [phone] Care Team Providers Care Control Manager Name Role Phone Shara Ray MD Primary Care Provide r Reason for Visit * Reason Onset Date Comments Medication Refill 05/08/2024 Encounter Details Date Type Department Care Team (Late st Contact Info) Description 05/08/2024 Refill Family Medicine [address] [phone] Chastity Kim PA-C [address] [place] [address] [place] [id number] Bronchitis, complicated Allergies Active Allergy Reactions Criticality [...] needed 50 mL 12/07/19 23 Active Nystatin 284511 UNIT/ML Mouth/Throat SuspensionIndicati ons:Thrush Swish and swallow [...] disease, without long-term current use of insulin ([facility]) Use as directed. 100 Each 11 07/25/19 Active Glucose Blood In Vitro StripIndications:T ype 2 diabetes mellitus with stage 3b chronic kidney disease, without long-term current use of insulin ([facility]) Use as directed. 100 Strip 11 07/25/19 [...] 1 5 3:48 PM EDT 01/22/20 24 Active Nitroglycerin [...] 5 2:51 PM EDT 05/06/19 25 Active Metoprolol Succinate ER 25 MG Oral Tablet Extended Release 24 Hour (toPROL XL) Take 1 Tablet by mouth at bedtime. 04/30/19 25 Active Azelastine HCl 0.1 % Nasal Solution (Astelin) ADMINISTER TWO SPRAYS INto both nostrils in THE MORNING AND TWO SPRAYS BEFORE BEDTIME 30 mL 2 4 6:10 PM EDT 11/04/19 24 025 Discontin ued(Refil l) documented as of this encounter (statuses as of 05/08/2024) Active Problems Problem Noted Date Diagnosed Date S/P tricuspid valve repair 04/09/2024 Hypothyroidism 04/09/2024 Hyperparathyroidism 04/09/2024 Moderate tricuspid regurgitation 03/23/2024 Esophageal dysmotility 03/23/2024 Chronic right-sided heart failure 03/20/2024 Atherosclerosis of [place] co ronary artery of [place] heart without angina pectoris 04/03/2023 Major depressive [...] left, subsequent encounter 09/2021 Overview (12/05/2021): [facility] ER ulstrasound shows [...] in the Comments) Remote Patient Monitoring Vendor: [facility] Device(s): Connected Scale Self [...] Assessment & Plan (07/10/2021 12:27 PM EDT): [facility] Call: I would have her [...] and amiodarone. On warfarin being managed by [facility] pharmacy. History of TIA (transient [...] PM EST): Symptoms well controlled on omeprazole superintendent terminal current use of anticoagulant therapy 0 [...] IM/IV Chest Xray Additional Comments: Followed by hot cell technician - Dr. Rashel Sales [facility] Assessment & Plan (12/07/2022 2:00 PM EDT): [...] 40mg IM/IV CBC Chest Xray Followed by hot cell technician - [facility] Rashel [facility] [...] (07/12/2011): Per CKD protocol #1 [employer] Other*[id number] 06/02/2010 04/18/2011 Overview (06/02/2010): PROJECT: #[id number], SPONSOR: Aileen, PI: Adolfo De Jesus MD [...] can be closed. CONTACT: Roberto Carlos Huertas, Endoscopy Rn Type 2 diabetes mellitus wit h [...] CG/0.3 mL, 12 YRS AND ABOVE, IM ([employer]Comirnaty) 12/03/2022 COVID-19, mRNA, LNP-s, PF, B ooster, [...] s 10/28/2023 Does the household have a [facility] hospital[facility] source of income? (Household - for [...] Miscellaneous Notes * Telephone Encounter - Montrell Leos MD - 05/08/2024 12:30 PM EDTRefused Prescriptions: Disp Refills guaiFENesin-Codeine 100-10 MG/5ML Oral Sally*120 mL 0 Sig: Take 5 mL by mouth 3 times a day as needed for Cough. Refused By: MONTRELL LEOS Reason for Refusal: Too soon * Telephone Encounter - Montrell Leos MD - 05/08/2024 12:28 PM EDT Covering for Dr Ray. PDMP reviewed- Filled 3 days ago by Chastity. Not appropriate to refill at this time. * Telephone Encounter - Kalyan Jimenez RP - 05/08/2024 11:39 AM EDT Pending Prescriptions: Disp Refills guaiFENesin-Codeine 100-10 MG/5ML Oral Sally*120 mL 0 Sig: Take 5 mL by mouth 3 times a day as needed for Cough. * Telephone Encounter - Kalyan Jimenez RP - 05/08/2024 11:37 AM EDT I have reviewed the patients controlled substance dispensing history in the Prescription Drug Monitoring Program in compliance with the [facility] regulations before prescribing a controlled substance. PDMP checked on 05/08/2024. Pending Prescriptions: Disp Refills guaiFENesin-Codeine 100-10 MG/5ML Oral So*120 mL 0 Sig: Take 5 mL by mouth 3 times a day as needed for Cough. Last Visit: 05/04/2024 (in office), 10/11/2020 (telemedicine) Next Visit: 06/24/2024 Date medication was last filled: 05/05/24 Date medication is due for refill: 05/11/24 Pharmacy: [facility], [address] [place] Is this request for a controlled substance? Yes and Urine Drug Screen Not completed Toxicology results: No results found. However, due to the size of the patient record, not all encounters were searched.Please check Results Review for a complete set of results. Please approve if appropriate. Thanks, Kalyan Jimenez, PharmD Clinical Pharmacist Centralized Clinical Pharmacy Services (CCPS) [phone] 05/08/2024, 11:37 AM documented in this encounter Plan of Treatment Upcoming Encounters Date Type Department Care Team (Late st Contact Info) Description 05/08/2024 6:00 PM EDT Anticoagulation [facility], [address] [place] [address] [place] [address] residential current use of anticoagulant therapy*; History of TIA (transient ischemic attack); S/P mitral valve replacement 05/11/2024 9:30 AM EDT Laboratory Laboratory, [facility] 132 [facility] [phone] [facility] [address] [facility] [place] [address] 05/11/2024 6:00 PM EDT Anticoagulation [facility] Clinical Pharmacy Services, [place] [address] [place] [address] [place] [address] [place] [address] 05/15/2024 3:00 PM EDT Office Visit Gastroenterology, [place] [address] [place] [address] Cat Kenny PA-C [address], [place] [phone] 05/19/2024 1:30 PM EDT Office Visit Allergy/Immunology [place] 200 [facility] [place] [address] Macario Pathak MD 200 [facility] [place] [address] 06/11/2024 5:00 PM EDT Home Visit [facility] [place], [facility] [address] [facility] [place] [address] Valentina Laws, RN [address] [place] [address] 06/23/2024 2:00 PM EDT Office Visit Hematology/Oncolog y [facility] [employer] [facility] [place] [phone] Bouchra Del Cid CRNP 400 [facility] [place] [address] 06/24/2024 1:40 PM EDT Office Visit Family Medicine [address] [place] [phone] Shara Ray MD [address] [place] [address] [place] [address] 07/14/2024 3:00 PM EDT Cardiac Studies [facility] [address] [place] [phone] 07/15/2024 2:00 PM EDT Office Visit Cardiology, [facility] [address] [place] [phone] Maria Ines Bowers CRNP [address] [place] [address] 08/20/2024 3:00 PM EDT Office Visit Nephrology [address] [place] [address] Aliyah Lacey MD 200 [facility] [place], [place] [address] 12/09/2024 10:00 AM EDT [facility] [address] [place] [phone] Hadley Molina MD [address] [place] [address] 01/08/2025 2:00 PM EST Office Visit Family Medicine [address] [place] [phone] Shara Ray MD [address] [place] [address] [place] [address] 03/01/2025 2:40 PM EST Office Visit Nephrology [address] [place] [address] Aliyah Lacey MD [address] [facility] [place] [address] Scheduled Procedures Name Priority Associated Diagnoses Date/Ti [...] Additional history exists CKD PHOS USE SMARTSET 05502 03/23/2025 02/0 04/2024, 03/22/2024, 03/21/2024, Additional history exists CKD HGB USE SMARTSET 11241 03/25/202503/25, 03/23/2024, 03/22/2024, Additional history exists DTap/Tdap [...] encounter Medical Devices Implanted Type Area Skin Peeling Machine Operator Device Identifier Shelf Expiration Date Model / Serial / Lot [place] Suture Biocomposite - Sn/A - [id number] Implanted:Qty: 2 on 12/13/2021 by Moris Jimneez, at OR [facility] Left: Leg Lower [employer] 07/18/2024 [id number] / N/A / [id number] Vitoss Bbtrauma Foam Pack - [id number] - [id number] Implanted:Qty: 1 on 12/13/2021 by Moris Jimenez, DO at OR [facility] Left: Leg Lower MICHA : TRAUMA 01/15/2022 [id number] / [id number] / [id number] System Delivery Triclip Xtw - [id number] Implanted:Qty: 1 on 03/18/2024 at [facility]S [facility] Stubmatic 08/11/2025 [id number] / / documented as of this encounter Visit Diagnoses Diagnosis Gastroesophageal reflux disease with esophagitis without hemorrhage- Primary Type 2 diabetes mellitus with stage 3b chronic kidney disease, without long-term current use of insulin ([facility]) Permanent atrial fibrillation ([facility]) Atrial fibrillation Restless legs syndrome Restless legs syndrome (RLS) S/P mitral valve replacement Heart valve replaced by other means Hypertensive heart and kidney disease with chronic diastolic congestive heart failure and stage 3b chronic kidney disease ([facility]) Recurrent falls Personal history of fall Hypertensive heart and kidney disease with chronic diastolic congestive heart failure and stage 3b chronic kidney disease ([facility])- Primary Intramuscular hematoma- Primary Contusion of unspecified site Permanent atrial fibrillation ([facility]) Atrial fibrillation Chronic obstructive pulmonary disease, unspecified COPD type ([facility]) Old myocardial infarct Old myocardial infarction Type 2 diabetes mellitus with stage 3b chronic kidney disease, without long-term current use of insulin ([facility]) Hypothyroidism, postablative Other postablative hypothyroidism Generalized anxiety disorder Permanent atrial fibrillation ([facility])- Primary Atrial fibrillation Type 2 diabetes mellitus with stage 3b chronic kidney disease, without long-term current use of insulin ([facility]) Hypertensive heart and kidney disease with chronic diastolic congestive heart failure and stage 3b chronic kidney disease (HCC) COPD, group B, by GOLD 2017 classification ([facility]) Gastroesophageal reflux disease with esophagitis without hemorrhage [...] classification ([facility]) Major depressive disorder, recurrent, moderate ([facility]) Major depressive disorder, recurrent episode, moderate Other persistent atrial fibrillation ([facility]) Generalized anxiety disorder Atherosclerosis of mecho[place]da coronary artery without angina pectoris, unspecified whether mechoopda or transplanted heart Hypothyroidism, postablative Other postablative hypothyroidism Dyslipidemia, goal LDL below 100 Other and unspecified hyperlipidemia superintendent terminal current use of anticoagulant therapy- Primary History of TIA (transient ischemic attack) Transient ischemic attack (TIA), and cerebral infarction without residual deficits S/P mitral valve replacement Heart valve replaced by other means Bronchitis, complicated Bronchitis, not specified as acute [...] Advance Directives occurred with: Patient Care Teams Control Manager Relationship Specialty Start Date End Date Shara Ray MD [address] [place] [address] [place] [phone] PCP - General Family Medicine 12/30/23 documented as of this encounter
--- OUTSIDE RECORDS SUMMARY | 2024-05-12 09:05 | External Medical Summary | Summary of Care ---
Author Name Unknown Organization [facility] Address [address] [place] [address] Phone [phone] Care Team Providers Care Assistant Boys Track Coach Name Role Phone Shara Ray MD Primary Care Provide r Reason for Visit * Reason Comments Medication Refill Encounter Details Date Type Department Care Team (Late st Contact Info) Description 05/08/2024 Refill Allergy/Immunology, [place] [address] [place] [address] Tootie Simmons MD [address] [place] [address] Allergies Active Allergy Reactions Criticality Noted Date [...] needed 50 mL 12/07/19 23 Active Nystatin 776631 UNIT/ML Mouth/Throat SuspensionIndicati ons:Thrush Swish and swallow [...] glucose daily as needed 1 Kit 07/25/19 24 Active LancetsIndications :Type 2 diabetes mellitus with [...] Chronic right-sided heart failure 03/20/2024 Atherosclerosis of [place] co ronary artery of [place] heart without angina pectoris 04/03/2023 Major depressive [...] leg, left, subsequent encounter 09/2021 Overview (12/05/2021): [facility] ER ulstrasound shows hematoma calf, [...] in the Comments) Remote Patient Monitoring Vendor: [facility] Device(s): Connected Scale [...] stable Continue Lasix 40 mg mon, wed, sat. 80 mg , , sat, sat Spironolactone 12.5 mg daily Assessment & Plan (07/10/2021 12:27 PM EDT): [facility] Call: I would have [...] and amiodarone. On warfarin being managed by [facility] pharmacy. 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 Rashel Sales [facility] Complicated UTI (urinary tract infection) 12/20/2021 [...] (07/12/2011): Per CKD protocol #1 [employer] Other*[id number] 06/02/2010 04/18/2011 Overview (06/02/2010): PROJECT: #[id number], SPONSOR: [employer], PI: Adolfo De Jesus MD [...] can be closed. CONTACT: Roberto Carlos Huertas, Site Monitor Type 2 diabetes mellitus wit h hemoglobin [...] CG/0.3 mL, 12 YRS AND ABOVE, IM ([facility]) 12/03/2022 COVID-19, mRNA, LNP-s, PF, B [...] Telephone Encounter - Tootie Simmons MD - 05/08/2024 12:54 PM EDTSigned Prescriptions: Disp Refills Azelastine HCl 0.1 % Nasal Solution (Astel*30 mL 2 Sig: ADMINISTER TWO SPRAYS INto both nostrils in THE MORNING AND TWO SPRAYS BEFORE BEDTIME Authorizing Provider: TOOTIE SIMMONS * Telephone Encounter - Tootie Simmons MD - 05/08/2024 12:54 PM EDTSigned Prescriptions: Disp Refills Azelastine HCl 0.1 % Nasal Solution (Astel*30 mL 2 Sig: ADMINISTER TWO SPRAYS INto both nostrils in THE MORNING AND TWO SPRAYS BEFORE BEDTIME Authorizing Provider: TOOTIE SIMMONS * Telephone Encounter - Sumi Cortes OSA - 05/08/2024 9:18 AM EDTPending Prescriptions: Disp Refills Azelastine HCl 0.1 % Nasal Solution (Astel*30 mL 2 Sig: ADMINISTER TWO SPRAYS INto both nostrils in THE MORNING AND TWO SPRAYS BEFORE BEDTIME * Telephone Encounter - Sumi Cortes OSA - 05/08/2024 9:18 AM EDT Last Office Visit: 06/04/2023 Next Office Visit: Visit date not found Please schedule follow up documented in this encounter Plan of Treatment Upcoming Encounters Date Type Department Care Team (Late st Contact Info) Description 05/08/2024 6:00 PM EDT Anticoagulation Centralized Clinical Pharmacy Services, Denia Yee [address] [place] [address] [place] [address] [place] [address] lobsterman current use of anticoagulant therapy*; History of TIA (transient ischemic attack); S/P mitral valve replacement 05/11/2024 9:30 AM EDT Laboratory Laboratory, [facility] [place] [phone] ChavezJeevan mcc[facility] 132 [facility] [place] [address] 05/11/2024 6:00 PM EDT Anticoagulation Centralized Clinical Pharmacy Services, Denia Yee [address] [place] [address] [place] [address] [place] [address] 05/15/2024 3:00 PM EDT Office Visit Gastroenterology, [facility] [address] [place], [place] [phone] Cat Kenny PA-C [address], [place] [phone] 05/19/2024 1:30 PM EDT Office Visit Allergy/Immunology [facility] [address] [place] [address] Tootie Simmons MD 200 [facility] [place] [address] 06/11/2024 5:00 PM EDT Home Visit [facility] [place], [facility] 132 [facility] [place] [address] Valentina Laws, TANISHA 132 [place] [address] 06/23/2024 2:00 PM EDT Office Visit Hematology/Oncolog y [facility] [address] [place] [phone] Bouchra Del Cid CRNP 400 [facility] [place] [address] 06/24/2024 1:40 PM EDT Office Visit Family Medicine [address] [place] [phone] Shara Ray MD [address] [place] [address] [place] [address] 07/14/2024 3:00 PM EDT Cardiac Studies Cardiac Studies, [facility] [address] [place] [phone] 07/15/2024 2:00 PM EDT Office Visit Cardiology, [facility] [address] [place] [phone] Maria Ines Bowers CRNP [address] [place] [address] 08/20/2024 3:00 PM EDT Office Visit Nephrology [address] [place] [address] Aliyah Lacey MD [address] [place] [address] 12/09/2024 10:00 AM EDT Office Visit Cardiology, [facility] [address] [place] [phone] Hadley Molina MD [address] [place] [address] 01/08/2025 2:00 PM EST Office Visit Family Medicine [address] [place] [phone] Shara Ray MD [address] [place] [address] [place] [address] 03/01/2025 2:40 PM EST Office Visit Nephrology [address] [place] [address] Aliyah Lacey MD [address] [place] [address] Scheduled Procedures Name Priority Associated Diagnoses Date/Ti [...] Additional history exists CKD PHOS USE SMARTSET 34805 03/23/2025 02/0 04/2024, 03/22/2024, 03/21/2024, Additional history exists CKD HGB USE SMARTSET 21408 03/25/202503/25, 03/23/2024, 03/22/2024, Additional history exists DTap/Tdap [...] this encounter Medical Devices Implanted Type Area Reverberatory Skimmer Device Identifier Shelf Expiration Date Model / Serial / Lot [place] Suture Biocomposite - Sn/A - [id number] Implanted:Qty: 2 on 12/13/2021 by Moris Jimenez DO at OR [facility] Left: Leg Lower [employer] 07/18/2024 [id number] / N/A / [id number] Vitoss Bbtrauma Foam Pack - [id number] - [id number] Implanted:Qty: 1 on 12/13/2021 by Moris Jimenez DO at OR [facility] Left: Leg Lower MICHA : TRAUMA 01/15/20228360-6314 / [id number] / [id number] System Delivery Triclip Xtw - [id number] Implanted:Qty: 1 on 03/18/2024 at [facility] untapt 08/11/2025 [id number] / / documented as of this [...] Advance Directives occurred with: Patient Care Teams Assistant Boys Track Coach Relationship Specialty Start Date End Date Shara Ray MD [address] [place] [address] [place] [address] PCP - General Family Medicine 12/30/23 documented as of this encounter
--- OUTSIDE RECORDS SUMMARY | 2024-05-12 09:05 | External Medical Summary | Summary of Care ---
Author Name Unknown Organization [facility] Address [address] [place] [address] Phone [phone] Care Team Providers Care Finish Patcher Name Role Phone Shara Ray MD Primary Care Provide r Reason for Visit * Reason Comments Follow Up Encounter Details Date Type Department Care Team (Late st Contact Info) Description 05/08/2024 8:00 AM EDT Office Visit Cardiology, [facility] [address] [facility] [place] [id number] Angie Alcantar CRNP [address] [facility] [place] [id number] Permanent atrial fibrillation (HCC)*; S/P mitral valve replacement; Severe tricuspid regurgitation; S/P insertion of tricuspid valve leaflet clip; Rheumatic heart disease Allergies Active Allergy Reactions Criticality Noted Date [...] needed 50 mL 12/07/19 23 Active Nystatin 736874 UNIT/ML Mouth/Throat SuspensionIndicati ons:Thrush Swish and swallow [...] disease, without long-term current use of insulin ([facility]) Check your glucose daily as needed 1 Kit 07/25/19 Active LancetsIndications :Type 2 diabetes mellitus with stage 3b chronic kidney disease, without long-term current use of insulin ([facility]) Use as directed. 100 Each 11 07/25/19 24 Active Glucose Blood In Vitro StripIndications:T ype 2 diabetes mellitus with stage 3b chronic kidney disease, without long-term current use of insulin ([facility]) Use as directed. 100 Strip 11 07/25/19 [...] Chronic right-sided heart failure 03/20/2024 Atherosclerosis of oneida co ronary artery of oneida heart without angina pectoris 04/03/2023 Major depressive [...] leg, left, subsequent encounter 09/2021 Overview (12/05/2021): [facility] ER ulstrasound [...] Assessment & Plan (07/10/2021 12:27 PM EDT): [facility]: I would have her do [...] and amiodarone. On warfarin being managed by [facility] pharmacy. History of TIA (transient ischemic [...] PM EST): Symptoms well controlled on omeprazole termite control [...] IM/IV Chest Xray Additional Comments: Followed by fondant machine operator - Dr. Rashel Sales [facility] Assessment & Plan (12/07/2022 2:00 PM EDT): [...] 40mg IM/IV CBC Chest Xray Followed by fondant machine operator - Dr. Rashel Sales [facility] Complicated UTI (urinary tract infection) 12/20/2021 05/17/2022 [...] (07/12/2011): Per CKD protocol #1 [employer] Other*[id number] 06/02/2010 04/18/2011 Overview (06/02/2010): PROJECT: #[id number], SPONSOR: Aileen, PI: Adolfo De Jesus MD [...] can be closed. CONTACT: Roberto Carlos Huertas, Turbine Measurements Engineer Type 2 diabetes mellitus wit h [...] CG/0.3 mL, 12 YRS AND ABOVE, IM ([facility]) 12/03/2022 COVID-19, mRNA, LNP-s, PF, B ooster, [...] exposures Alcohol Use Standard Drinks/Week Comments Yes 1 [...] Sign Reading Time Taken Comments Blood Pressure 106/50 05/08/2024 8:22 AM EDT Pulse 76 05/08/2024 8:22 AM EDT Temperature - - Respiratory Rate 16 05/08/2024 8:22 AM EDT Oxygen Saturation - - Inhaled Oxygen Concentration - - Weight 61.7 kg (136 lb 1.6 oz) 05/08/2024 8:22 A M EDT Height - - Body Mass Index 26.58 03/26/2024 1:44 PM EST documented in this encounter Functional Status * Are you deaf or do you have serious difficulty hearing? Answer Date of Assessment Author Yes 03/13/2024 3:44 PM EST Maury Vasquez RN * Are you blind or do [...] of Assessment Author Yes 03/13/2024 3:44 PM EST Maury Vasquez RN * Because of a physical, mental, [...] documented in this encounter Progress Notes * Angie Alcantar CRNP - 05/08/2024 8:14 AM EDT Subjective Abdi Bowling is a 68 year old female. Chief Complaint Patient presents with Follow Up Primary Maintenance Coordinator: Dr. Molina Cardiac Problems: Permanent A Fib Chronic diastolic CHF, NYHA class II-III Severe TR s/p clip 03/18/24 Rheumatic heart disease status post mechanical MVR 1993 DM II HLD S/p LOOP 03/31/21 CKD IV Iron Deficiency on IV Iron HPI: 68 year old female presents for general cardiology follow up. Last seen in the clinic 2 weeks ago in the valve clinic and 2 months ago by general cardiology. She developed respiratory symptoms after her last clinic visit prompting presentation to [facility] ER for further evaluation. At that time she was diagnosed with rhinovirus/bronchitis. Incidentally while she was in the Emergency Room on the monitor they noted episodes of NSVT. Additional consultation was made with Dr. Molina at that time recommending in increase in beta-galina. Of note she had not taken her metoprolol that morning which was also considered a contributing factor. She was subsequently discharged on prednisone along with her metoprolol. Also since the ER evaluation she has been seen at the PCP office, who also placed her on antibiotictherapy. Still has the cough but seems less deep. Maybe starting to get a little better. Appetite has been improving. Does have chronic shortness of breath and feels that this is at her baseline outside of the underlying respiratory infection. Denies chest pain, palpitations, dizziness, syncope, edema, orthopnea and PND. No change in activity tolerance. Reports compliance with medications without any untoward side effects, or difficulty with affordability. 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 S/P mitral valve replacement Gastroesophageal reflux disease with esophagitis without hemorrhage Generalized osteoarthritis Hypothyroidism, postablative Atherosclerosis of oneida coronary artery of oneida heart without angina pectoris Dyslipidemia, goal LDL below 100 History of TIA (transient ischemic attack) Varicose veins of both legs with edema Permanent atrial fibrillation (HCC) Tachy-sammi syndrome (HCC) Old myocardial infarct Status post bilateral knee replacements Type 2 diabetes mellitus with stage 3b chronic kidney disease, without long-term current use of insulin (HCC) Hypertensive heart and kidney disease with chronic diastolic congestive heart failure and stage 3b chronic kidney disease (HCC) History of falling Generalized anxiety disorder Chronic cough Other injury of unspecified body region, subsequent encounter Hematoma of leg, left, subsequent encounter Controlled substance agreement signed Closed nondisplaced fracture of left tibial tuberosity with routine healing Iron deficiency anemia Restless leg syndrome Major depressive disorder, recurrent, moderate (HCC) Other persistent atrial fibrillation (HCC) Chronic right-sided heart failure (HCC) Moderate tricuspid regurgitation Esophageal dysmotility S/P tricuspid valve repair Hypothyroidism Hyperparathyroidism (HCC) Current Outpatient Medications Medication Sig Dispense Refill acetaminophen (TYLENOL) 500 MG Tablet Take 1 Tablet by mouth every 6 hours as needed for Pain. milk of magnesia (MOM) 400 MG/5ML suspension Take 15 mL by mouth daily as needed for Constipation. Magnesium Glycinate 665 MG Oral Capsule One daily 100 Capsule 1 Lidocaine HCl 4 % External Solution Apply topically to affected area once for 1 dose. Apply to mouth ulcers as needed 50 mL 0 Nystatin 104056 UNIT/ML Mouth/Throat Suspension Swish and swallow 5 mL in the morning and 5 mL at noon and 5 mL in the evening and 5 mL before bedtime. For thrush.. 240 mL 1 traMADol HCl 50 MG Oral Tablet (Ultram) Take 1 Tablet by mouth 2 times a day as needed for Pain, Severe. (Patient taking differently: Take 1 Tablet by mouth 4 times a day as needed for Pain, Severe.)60 Tablet 0 Buprenorphine 5 MCG/HR Transdermal Patch Weekly (Butrans) Apply 1 patch to skin once a week as directed Nebulizer/Tubing/Mouthpiece Kit Use as directed 1 Kit 1 oxygen IN GAS Use 2 L/min(Oxygen) as directed at bedtime. Ordered by pulmonary in Mar 2023. Also takes as needed during day valACYclovir HCl 1 GM Oral Tablet (Valtrex) Take 2 Tablets by mouth in the morning and 2 Tablets before bedtime. for cold sores. 4 Tablet 11 D3-1000 25 MCG (1000 UT) Oral Capsule (Cholecalciferol) Take 1 Capsule by mouth every other day. Blood Glucose Monitor System w/Device Kit Check your glucose daily as needed 1 Kit 0 Lancets Use as directed. 100 Each 11 Glucose Blood In Vitro Strip Use as directed. 100 Strip 11 Albuterol Sulfate HFA 108 (90 Base) MCG/ACT Inhalation Aerosol Solution INHALE TWO PUFFS BY MOUTH EVERY MORNING, TWO PUFFS EVERY EVENING AND 2 puffs EVERY 4 HOURS NEEDED FOR WORSENING COUGH, CHESTTIGHTNESS, FOR WHEEZING OR FOR SHORTNESS OF BREATH 54 g 2 Omeprazole 20 MG Oral Capsule Delayed Release (PriLOSEC) Take 1 Capsule by mouth in the morning. (Patient taking differently: Take 1 Capsule by mouth every evening.) 100 Capsule 3 rOPINIRole HCl 2 MG Oral Tablet (Requip) Take 1 Tablet by mouth in the morning and 1 Tablet at noonand 1 Tablet before bedtime. (Patient taking differently: Take 1 Tablet by mouth in the morning and1 Tablet at noon and 1 Tablet before bedtime. 1 tablet at HS only.) 300 Tablet 3 Azelastine HCl 0.1 % Nasal Solution (Astelin) ADMINISTER TWO SPRAYS INto both nostrils in THE MORNING AND TWO SPRAYS BEFORE BEDTIME 30 mL 2 Combivent Respimat 20-100 MCG/ACT Inhalation Aerosol Solution (Ipratropium- Albuterol) inhale 1 puffby mouth four times daily As Needed for Shortness Of Breath 12 g 2 Metoclopramide HCl 10 MG Oral Tablet (Reglan) TAKE ONE TABLET BY MOUTH EVERY MORNING 30 MINUTES BEFORE A MEAL 100 Tablet 1 Rosuvastatin Calcium 10 MG Oral Tablet (Crestor) Take 1 Tablet by mouth in the morning. 100 Tablet 1 Folic Acid 1 MG Oral Tablet TAKE ONE TABLET BY MOUTH EVERY MORNING 100 Tablet 1 Metoprolol Succinate ER 50 MG Oral Tablet Extended Release 24 Hour (toPROL XL) Take 1 Tablet by mouth in the morning. (Patient taking differently: Take 1 Tablet by mouth in the morning. 25mg every PM.) 90 Tablet 1 Nitroglycerin 0.4 MG Sublingual Tablet Sublingual (Nitrostat) PLACE 1 TABLET UNDER THE TONGUE EVERY5 MINUTES UP TO 3 DOSES NEEDED FOR CHEST PAIN. IF NO RELIEF CALL 911 OR GO TO ER 75 Tablet 0 Warfarin Sodium 2.5 MG Oral Tablet (Coumadin) Take as instructed by coumadin pharmacist/clinic 180 Tablet 1 Torsemide 100 MG Oral Tablet (Demadex) Take 1 Tablet by mouth in the morning. (Patient taking differently: Take 1.5 Tablets by mouth in the morning.) 90 Tablet 3 Citalopram Hydrobromide 10 MG Oral Tablet (CeleXA) Take 1 Tablet by mouth in the morning. 90 Tablet1 metOLazone 2.5 MG Oral Tablet (Zaroxolyn) Take 1 Tablet by mouth in the morning. As needed directedby Cardiology or Nephrology. Spironolactone 12.5 MG OR TABS Take by mouth daily. Empagliflozin 10 MG Oral Tablet (Jardiance) Take 1 Tablet by mouth in the morning. 90 Tablet 3 Benzonatate 100 MG Oral Capsule Take 1 Capsule by mouth 3 times a day as needed for Cough. 30 Capsule 1 Levothyroxine Sodium 100 MCG Oral Tablet (Levoxyl) TAKE ONE TABLET by MOUTH DAILY FIRST THING IN THE MORNING AT LEAST 30 MINUTES PRIOR TO BREAKFAST OR OTHER MEDS 100 Tablet 1 Potassium Chloride Jodie ER 10 MEQ Oral Tablet Extended Release Take 2 Tablets by mouth in the morning and 2 Tablets before bedtime. 540 Tablet 3 Amoxicillin-Pot Clavulanate 875-125 MG Oral Tablet (Augmentin) Take 1 Tablet by mouth in the morning and 1 Tablet before bedtime. Do all this for 10 days. 20 Tablet 0 guaiFENesin-Codeine 100-10 MG/5ML Oral Solution (Robitussin AC) Take 5 mL by mouth 3 times a day asneeded for Cough. 120 mL 0 Ipratropium-Albuterol 0.5-2.5 (3) MG/3ML Inhalation Solution (Duoneb) inhale one vial via nebulizerfour times daily as needed for shortness of breath or wheezing 1080 mL 0 No current facility-administered medications for this visit. Past Medical History: Diagnosis Date Acute on chronic diastolic CHF (congestive heart failure) (HCC) 07/18/2021 [facility] Anticoagulation management encounter 08/06/2001 INR 3-3.5 Anxiety attack 06/23/2021 Evaluated [facility] ER Atrial fibrillation (HCC) Bronchitis 02/18/2022 got sick on 9 days En cruise Coronary atherosclerosis of oneida coronary artery Cough variant asthma 01/16/2021 COVID-19 10/14/2020 Cystitis 12/12/2021 [facility] Klebsiella and E coli Diverticulosis of colon (without mention of hemorrhage) 07/16/2013 sigmoid & descending colon DM type 2, goal A1c below 7 diet controlled Dyslipidemia, goal LDL below 70 09/24/2013 Encounter for hepatitis C screening test for low risk patient 03/28/2021 negative Esophageal reflux 12/03/2008 min gastric inflammation and mod active chronic esophageal inflammation-repeat EGD in 2 yrs Facial paresthesia 05/21/2018 [facility] possibly stress Fracture of left tibial tuberosity 12/07/2021 [facility] knee replaced GENERAL OSTEOARTHROSIS 01/31/2010 Generalized anxiety disorder 06/26/2021 citalopram started Hemarthrosis involving knee joint Hematoma of left lower leg 11/25/2021 [facility] ER ulstrasound shows hematoma calf, INR 4.2, hgb 9.9 Hyperlipidemia LDL goal < 100 12/23/2013 Hypertensive heart and kidney disease with chronic diastolic congestive heart failure and stage 3b chronic kidney disease (HCC) 04/26/2021 Hypothyroidism, postablative 09/24/2013 Intramuscular hematoma 08/02/2021 left leg, [facility] Kidney disease, chronic, stage III (GFR 30-59 ml/min) ([facility]) 07/09/2011 Per CKD protocol #1 LONG-TERM USE OF ANTICOAGULANTS 05/10/2004 MEDICATION USE AGREEMENT 08/29/2017 Migraine with aura, intractable Old myocardial infarct 01/02/2001 Other abnormal glucose 03/13/2005 Postural dizziness with presyncope 12/05/2017 [facility] also burned her arm. GFR 17 Protein calorie malnutrition ([facility]) Restless legs syndrome 12/06/2016 RHEUMATIC HEART DISEASE 03/05/2002 Right knee DJD S/P mitral valve replacement 1993 mechanical Shingles 02/13/2014 left thigh Syncope 01/13/2021 [facility] VICKY and dehydration Tachy-smami syndrome ([facility]) 02/14/2018 Tendonitis, Achilles, left 02/18/2022 walked a lot on a cruise TIA (transient ischemic attack) 12/23/2013 embolic Past Surgical History: Procedure Laterality Date ARTHROPLASTY KNEE TOTAL Left 09/23/2018 [facility] had post op hemarthrosis required transfusions Dr Cormier ARTHROPLASTY KNEE TOTAL Right 01/13/2019 [facility] CATHETERIZE LEFT HEART THRU SKIN [address] ANGIOGRAPHY HEAD W/CONTRAST/NONCONTRAST N/A 01/13/2021 arteries patent COLONOSCOPY N/A 02/24/2020 internal nemorrhoids, sigmoid diverticulosis, repeat 10 years COLONOSCOPY, DIAGNOSTIC (RECTUM) 07/16/2013 diverticulosis, poor prep, repeat 3 yrs/COLONOSCOPY FLEXIBLE PROXIMAL DIAGNOSTIC performed by Louie Childress MD at ENDOSCOPY [facility] COLONOSCOPY, DIAGNOSTIC (RECTUM) 02/24/2020 diverticulosis, repeat 10 yrs / COLONOSCOPY FLEXIBLE PROXIMAL DIAGNOSTIC performed by Louie Childress MD at ENDOSCOPY [facility] CT HEAD/BRAIN WO CONTRAST N/A 01/13/2021 no intracranial abnormalities, parietal scalp effusion from fall DISTAL TIBIA FX W/FIXATION OF TIBIA, OPEN Left 12/13/2021 OPEN TREATMENT OF PILON FRACTURE TIBIA ONLY performed by Moris Jimenez DO at OR [facility] DISTAL TIBIA FX W/FIXATION OF TIBIA, OPEN Left 12/11/2021 OPEN TREATMENT OF PILON FRACTURE TIBIA ONLY performed by Moris Jimenez DO at OR [facility] EEG 05/20/2018 normal EGD, FLEXIBLE, DIAGNOSTIC N/A 02/24/2020 hiatal hernia, normal esophagus and duodenum, inflammation gastric antrum EGD, FLEXIBLE, DIAGNOSTIC 02/24/2020 gastritis, hiatal hernia / ESOPHAGOGASTRODUODENOSCOPY (EGD), FLEXIBLE, TRANSORAL, DIAGNOSTIC performed by Louie Childress MD at ENDOSCOPY [facility] EGD, FLEXIBLE, DIAGNOSTIC 07/24/2021 normal / INPT [facility] EGD, FLEXIBLE, INSERT WIRE, PASS DILATOR 09/13/2009 [...] fx risk 10%/1.8%, moderate repeat 2 years PERC TRANSCATHETER TRICUSPID VALVE REPAIR; INITIAL PROSTHESIS Bilateral 03/18/2024 TRANSCATHETER TRICUSPID VALVE REPAIR (TTVR) performed [place] Silverio Arevalo [place] [facility] [place] OF [place]ENDIX 1965 REMOVE GALLBLADDER 1987 [...] Other reaction(s): DYSTONIA Metformin Other reaction(s): DIARRHEA Vincent Inhibitors cough Gabapentin Neuro complications (Please comment) confusion Lovenox [Enoxaparin] Oxycodone " numb all over" Phenothiazines Unknown Nuchal dystonia Prochlorperazine Neuro complications (Please comment) dystonia Promethazine Tetracycline Nausea/vomiting Family History Problem Relation Name Age of Onset Eczema Mother Other (COVID) Mother Multi system organ failure, age 90 Cancer Father Bladder Allergies Brother Cat and dog allergies Cancer Grandfather (Maternal) Leukemia Heart Disorder Uncle (Unspecified) Family Status Relation Status Mo Fa at age 88 cancer of bladder Bro Alive MGFA (Not Specified) UNCLE (Not Specified) Social History Socioeconomic History Marital status: Single Spouse name: Not on file Number of children: 0 Years of education: Not on file Highest education level: Not on file Occupational History 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 (Adult - for ages 18 years and over): No Does your family have trouble paying for medicine? (Household - for ages 0-17 years): Not on file Food Insecurity: No Food Insecurity (10/28/2023) Food Insecurity Worried About Running Out of Food in the Last Year: Never true Ran Out of Food in the Last Year: Never true Do you need food for this week? (Adult - for ages 18 years and over): No Transportation Needs: No Transportation Needs (10/28/2023) Transportation Needs Do you have trouble getting a ride to medical visits or work? (Adult - for ages 18 years and over):Never True Does your family have a hard time getting a ride to doctors visits? (Household - for ages 0-17 years): Not on file Has lack of transportation kept you from medical appointments, meetings, work, or from getting things needed for daily living? Check all that apply. (Adult - for ages 18 years and over): No Do you (or your family) have trouble finding or paying for a ride (transportation)? (Household - for ages 0-17 years): Not on file Social Connections: Socially Integrated (10/28/2023) Social Connections How often do you feel lonely or isolated from those around you? (Adult - for ages 18 years and over): Never Housing Stability: Low Risk (10/28/2023) Housing Stability Do you currently live in a fdc or have no steady place to sleep at night? (Adult - for ages 18 years and over): No Do you think you are at risk of becoming homeless? (Adult - for ages 18 years and over): No Does your family worry about paying for your home or becoming homeless? (Household - for ages 0-17 years): Not on file Are you homeless or worried that you might be in the future? (Adult - for ages 18 years and over): No Are you (or your family) homeless or worried that you might be in the future? (Household - for ages0-17 years): Not on file Review of Systems Constitutional: Negative for activity change, fatigue and unexpected weight change. Eyes: Negative for visual disturbance. Respiratory: Positive for cough and shortness of breath. Negative for wheezing. Cardiovascular: Negative for chest pain, palpitations and leg swelling. Gastrointestinal: Negative for blood in stool, constipation, diarrhea, nausea and vomiting. Genitourinary: Negative for hematuria. Musculoskeletal: Negative for arthralgias and gait problem. Skin: Negative for wound. Neurological: Negative for dizziness and syncope. Objective BP 106/50 (BP Site: Left Arm, BP Position: Sitting, BP Cuff Size: Regular) | Pulse 76 | Resp 16 | Wt 61.7 kg (136 lb 1.6 oz) | BMI 26.58 kg/m | BSA 1.62 m Wt Readings from Last 3 Encounters: 05/08/24 61.7 kg (136 lb 1.6 oz) 04/24/24 61.2 kg (135 lb) 04/22/24 61.2 kg (135 lb) Physical Exam Vitals and nursing note reviewed. Constitutional: General: She is awake. She is not in acute distress. Appearance: Normal appearance. She is well-developed. She is not ill-appearing. HENT: Head: Normocephalic and atraumatic. Eyes: General: No scleral icterus. Extraocular Movements: Extraocular movements intact. Conjunctiva/sclera: Conjunctivae normal. Pupils: Pupils are equal, round, and reactive to light. Neck: Thyroid: No thyromegaly. Vascular: No carotid bruit or JVD. Cardiovascular: Rate and Rhythm: Normal rate. Rhythm irregularly irregular. Pulses: Normal pulses. Carotid pulses are 2+ on the right side and 2+ on the left side. Radial pulses are 2+ on the right side and 2+ on the left side. Posterior tibial pulses are 2+ on the right side and 2+ on the left side. Heart sounds: Normal heart sounds, S1 normal and S2 normal. No murmur heard. Pulmonary: Effort: Pulmonary effort is normal. No respiratory distress. Breath sounds: Normal breath sounds. No wheezing, rhonchi or rales. Abdominal: General: Bowel sounds are normal. There is no distension. Palpations: Abdomen is soft. There is no mass. Tenderness: There is no abdominal tenderness. Musculoskeletal: General: No swelling. Cervical back: Neck supple. Right lower leg: No edema. Left lower leg: No edema. Skin: General: Skin is warm and dry. Capillary Refill: Capillary refill takes less than 2 seconds. Findings: No rash or wound. Neurological: General: No focal deficit present. Mental Status: She is alert and oriented to person, place, and time. Psychiatric: Attention and Perception: Attention and perception normal. Behavior: Behavior is cooperative. Judgment: Judgment normal. Results Labs & Imaging Reviewed Below: Loop Interrogations: (LINQ II) 04/20/24 Presenting: Atrial fibrillation No events Adequate rate control ECG 04/01/24 A Fib 73 bpm QTc 460 ms 03/26/24 A Fib 67 bpm QTc 424 ms 03/19/24 A Fib 81 bpm QTc 480 ms 03/18/24 A Fib 87 bpm QTc 534 ms Echocardiograms 04/21/24 The left ventricular cavity size is normal. The LV wall thickness is normal. The left ventricular wall motion is normal. The qualitative LV ejection fraction is 60-64% (normal). The left atrium is severely enlarged (>48 ml/m^2,). The right atrium is severely enlarged. Moderate aortic valve sclerosis is present. Mild aortic valve regurgitation is present. There is a mitral valve central disc (Roe-Medtronic type) mechanical prosthesis with surrounding heavy pannus but preserved leaflet mobility with mildly elevated transvalvular velocity and gradient. Doppler reveals mitral regurgitation through the orifice of the prosthetic valve that is physiologic (normal). TriClip XTW device is visualized Severe tricuspid regurgitation is present. The estimated pulmonary artery systolic pressure is 40-45mm Hg. 03/19/24 The examination is adequate to evaluate the referral indication. The qualitative LV ejection fraction is 55-59% (normal). No LV segmental wall motion abnormalities. The right ventricular systolic function is qualitatively normal. The right ventricular cavity size is enlarged (basal dimension > 4.2 cm RV apical 4 chamber view). Mild aortic valve regurgitation is present. There is a mitral valve central disc (Roe-Medtronic type) mechanical prosthesis present. Significant mitral valve prosthesis regurgitation is absent. Mildly elevated transvalvular velocity and gradient. Significant mitral valve prosthesis stenosis is absent. s/p TriClip XTW device. Severe tricuspid regurgitation is present. Estimated PASP 31.3 mmHg. s/p TriClip XTW device 03/16/24 ALAN This waas a focused ALAN to better assess the tricuspid bvalve to see if the pt were a suitable candidate for a TriClip procedure There appears to be two separate jets of TR The septal leaflet tip is tethered apically. This results in the anterior leaflet over riding the septal leaflet leading to a moderate jet of TR The second larger jet is between the tethered septal leaflet and the posterior leaflet.This jet appears to be severe 12/30/23 ALAN The examination is adequate to evaluate the referral indication. The qualitative LV ejection fraction is 55-59% (normal). No LV segmental wall motion abnormalities. The right ventricular cavity is mildly dilated. The right ventricular systolic function is qualitatively normal. Mild aortic valve regurgitation is present. There is a mitral valve central disc (Roe-Medtronic type) mechanical prosthesis present. Significant mitral valve prosthesis stenosis is absent. Mechanical MVR washing jets are present (central regurgitant jet). Severe tricuspid regurgitation is present. 04/19/23 The examination is adequate to evaluate the referral indication. The left ventricular wall motion is normal. The qualitative LV ejection fraction is 60-64% (normal). The left atrium is severely enlarged (>48 ml/m^2,). The right atrium is severely enlarged. Mild aortic valve regurgitation is present. There is a mitral valve central disc (Roe-Medtronic type) mechanical prosthesis with surrounding heavy pannus but preserved leaflet mobility with mildly elevated transvalvular velocity and gradient. Mitral valve prosthetic regurgitation is not assessed due to acoustic shadowing from the prosthesis. Severe tricuspid regurgitation is present. Intermediate IVC size and collapsability. Right atrial pressure estimated at 8 mmHg. The estimated pulmonary artery systolic pressure is 43mm Hg. Compared to the previous study dated 07/19/2022, no significant interval change. Labs Latest Reference Range & Units 04/15/24 10:19 04/22/24 09:42 04/24/24 14:30 05/06/24 10:18 BNP, NT-Pro <300 pg/mL 492 (H) SODIUM 135 - 146 mmol/L 140 135 141 POTASSIUM 3.5 - 5.1 mmol/L 3.9 3.1 (L) 4.0 3.7 CHLORIDE 98 - 107 mmol/L 97 (L) 85 (L) 96 (L) CO2 22 - 32 mmol/L 32 35 (H) 33 (H) BUN 6 - 20 mg/dL 40 (H) 39 (H) 43 (H) CREATININE 0.5 - 1.0 mg/dL 1.9 (H) 2.2 (H) 2.3 (H) EGFR >=60 mL/min 28 (L) 24 (L) 23 (L) ANION GAP 7 - 15 mmol/L 11 15 12 GLUCOSE 70 - 120 mg/dL 110 173 (H) 74 CALCIUM 8.4 - 10.2 mg/dL 9.4 10.8 (H) 10.8 (H) Magnesium 1.5 - 2.6 mg/dL 2.9 (H) INR 0.8 - 1.2 2.9 (H) 3.6 (H) 7.2 (HH) Prothrombin Time 11.6 - 15.2 seconds 30.5 (H) 36.2 (H) 64.6 (H) Impression Permanent A Fib Chronic diastolic CHF, NYHA class II-III Severe TR s/p clip 03/18/24 NSVT noted on telemetry in the ED 04/29/24 Rheumatic heart disease status post mechanical MVR 1993 DM II HLD S/p LOOP 03/31/21 CKD IV Iron Deficiency on IV Iron Plan: -HR and BP well controlled -she is euvolemic on exam -CHF education reinforced -continue -continue metoprolol, Aldactone, torsemide, warfarin, rosuvastatin -INR noted to be elevated earlier this week likely secondary to steroids/antibiotics; she is scheduled for repeat INR later today after her visit -Educated patient on caution with change in positions to minimize symptomatic orthostatic hypotension -Discussed importance of diet & exercise with the patient. -Discussed with patient subtle changes in how they are feeling or completing daily activities to contact us sooner; don't wait days or weeks. DISPOSITION: Follow up as scheduled and in 6 months with General Cardiology or if symptoms worsen/fail to improve. All questions were answered to the patients satisfaction. Patient advised to report to ED with any and all emergencies. The patient agrees to the above plan and will call with additional questions or concerns. [facility], [address] [address] This chart was completed in part utilizing Data[employer] Speech Voice Recognition Software. Grammatical errors, random word insertions, pronoun errors, and incomplete sentences are an occasional consequence of this system due to software limitations, ambient noise, and hardware issues. Any formal questions or concerns about the content, text, or information contained within the body of this dictation should be directly addressed to the provider for clarification. documented in this encounter Nursing Notes * Angelic Kenney CMA - 05/08/2024 8:12 AM EDT Examination Room: 13 Name: Abdi Bowling Date of : (1955). Reason for Visit: fu Interim Hospitalization(s): [facility] ED 04/30 - discuss non-sustained SVT Problems/Concerns: Fluid status doing well per caregiver, weights stable at home. Chest Pain/SOB: Denies CP or unusual SOB. Lingering cough from recent bronchitis. [facility] Discussed: No [facility] is a way you can [...] Description 05/11/2024 9:30 AM EDT Laboratory Laboratory, [facility] [place] [address] [facility] [place] [address] ChavezJeevan mccrary [facility] 132 [facility] [place] [address] 05/11/2024 6:00 PM EDT Anticoagulation Centralized Clinical Pharmacy Services, Denia Yee [address] [place] [address] [place] [address] [place] [address] 05/15/2024 3:00 PM EDT Office Visit Gastroenterology, [place] [address] [place] [address] Cat Kenny PA-C [address] [place] [address] 05/19/2024 1:30 PM EDT Office Visit Allergy/Immunology [facility] [address] [address] Macario Pathak MD [address] [facility] [place] [address] 06/11/2024 5:00 PM EDT [facility] Visit [facility] [place], [facility] [address] [facility] [place] [address] Valentina Laws RN [address] [place] [address] 06/23/2024 2:00 PM EDT Office Visit Hematology/Oncology [facility] [address] [facility] [place] [phone] Bouchra Del Cid CRNP 400 [facility] [place] [address] 06/24/2024 1:40 PM EDT Office Visit Family Medicine [address] [place] [phone] Shara Ray MD [address] [place] [address] [place] [address] 07/14/2024 3:00 PM EDT Cardiac Studies Cardiac Studies, [facility] [address] [place] [phone] 07/15/2024 2:00 PM EDT Office Visit Cardiology, [facility] [address] [place] [phone] Maria Ines Bowers CRNP [address] [place] [address] 08/20/2024 3:00 PM EDT Office Visit Nephrology [address] [place] [address] Aliyah Lacey MD [address] [facility] [place] [address] 12/09/2024 10:00 AM EDT Office Visit Cardiology, [facility] [address] [place] [phone] Hadley Molina MD [address] [place] [address] 01/08/2025 2:00 PM EST Office Visit Family Medicine [address] [place] [phone] Shara Ray MD [address] [place] [address] [place] [address] 03/01/2025 2:40 PM EST Office Visit Nephrology [address] [place] [address] Aliyah Lacey MD [address] [place] [address] Scheduled Procedures Name Priority Associated Diagnoses Date/Ti [...] Additional history exists CKD PHOS USE SMARTSET 92914 03/23/2025 02/0 04/2024, 03/22/2024, 03/21/2024, Additional history exists CKD HGB USE SMARTSET 23799 03/25/202503/25, 03/23/2024, 03/22/2024, Additional history exists DTap/Tdap [...] this encounter Medical Devices Implanted Type Area Diffusion Operator Device Identifier Shelf Expiration Date Model / Serial / Lot [place] Suture Biocomposite - Sn/A - [id number] Implanted:Qty: 2 on 12/13/2021 by Moris Jimenez, DO at OR [facility] Left: Leg Lower [employer] 07/18/2024 [id number] / N/A / [id number] Vitoss Bbtrauma Foam Pack - [id number] - [id number] Implanted:Qty: 1 on 12/13/2021 by Moris Jimenez, DO at OR [facility] Left: Leg Lower MICHA : TRAUMA 01/15/[id number] / [id number] / [id number] System Delivery Triclip Xtw - [id number] Implanted:Qty: 1 on 03/18/2024 [place] [facility] [employer] 08/11/2025 [id number] / / documented as of this encounter Visit Diagnoses Diagnosis Gastroesophageal reflux disease with esophagitis without hemorrhage- Primary Type 2 diabetes mellitus with stage 3b chronic kidney disease, without long-term current use of insulin ([facility]) Permanent atrial fibrillation ([facility]) Atrial fibrillation Restless legs syndrome Restless legs syndrome (RLS) S/P mitral valve replacement Heart valve replaced by other means Hypertensive heart and kidney disease with chronic diastolic congestive heart failure and stage 3b chronic kidney disease ([facility]) Recurrent falls Personal history of fall Hypertensive heart and kidney disease with chronic diastolic congestive heart failure and stage 3b chronic kidney disease ([facility])- Primary Intramuscular hematoma- Primary Contusion of unspecified site Permanent atrial fibrillation ([facility]) Atrial fibrillation Chronic obstructive pulmonary disease, unspecified COPD type ([facility]) Old myocardial infarct Old myocardial infarction Type 2 diabetes mellitus with stage 3b chronic kidney disease, without long-term current use of insulin ([facility]) Hypothyroidism, postablative Other postablative hypothyroidism Generalized anxiety disorder Permanent atrial fibrillation ([facility])- Primary Atrial fibrillation Type 2 diabetes mellitus with stage 3b chronic kidney disease, without long-term current use of insulin ([facility]) Hypertensive heart and kidney disease with chronic diastolic congestive heart failure and stage 3b chronic kidney disease (HCC) COPD, group B, by GOLD 2017 classification ([facility]) Gastroesophageal reflux disease with esophagitis without hemorrhage Hypothyroidism, postablative Other postablative hypothyroidism Dyslipidemia, goal LDL below 100 Other and unspecified hyperlipidemia Restless legs syndrome Restless legs syndrome (RLS) Iron deficiency anemia, unspecified iron deficiency anemia type Hypertensive heart and kidney disease with chronic diastolic congestive heart failure and stage 3b chronic kidney disease (HCC)- Primary COPD, group B, by GOLD 2017 classification ([facility]) Major depressive disorder, recurrent, moderate (HCC) Major depressive disorder, recurrent episode, moderate Other persistent atrial fibrillation ([facility]) Generalized anxiety disorder Atherosclerosis of [place] coronary artery without angina pectoris, unspecified whether [place] or transplanted heart Hypothyroidism, postablative Other postablative hypothyroidism Dyslipidemia, goal LDL below 100 Other and unspecified hyperlipidemia Permanent atrial fibrillation (HCC)- Primary Atrial fibrillation S/P mitral valve replacement Heart valve replaced by other means Severe tricuspid regurgitation Diseases of tricuspid valve S/P insertion of tricuspid valve leaflet clip Rheumatic heart disease Rheumatic heart disease, unspecified documented in this encounter Advance Directives * [...] Advance Directives occurred with: Patient Care Teams Finish Patcher Relationship Specialty Start Date End Date Shara Ray MD [address] [place] [address] [place] [phone] PCP - General Family Medicine 12/30/23 documented as of this encounter
--- OUTSIDE RECORDS SUMMARY | 2024-05-12 09:06 | External Medical Summary | Summary of Care ---
Author Name Unknown Organization [facility] Address [address] [place] [facility] [place] [address] Phone [phone] Care Team Providers Care Seeing Eye Dog Teacher Name Role Phone Shara Ray MD Primary Care Provide r Reason for Visit * Reason Comments Outpatient Testing Encounter Details Date Type Department Care Team (Late st Contact Info) Description 05/08/2024 9:40 AM EDT Laboratory Laboratory, [facility] 132 [facility] [place] [phone] ChavezJeevan mccrary [facility] [place] [address] History of TIA (transient ischemic attack); S/P mitral valve replacement; Permanent atrial fibrillation (HCC); Anticoagulation management encounter; Hypokalemia; Chronic right-sided heart failure (HCC); Status post insertion of tricuspid valve leaflet clip Allergies Active Allergy Reactions Criticality Noted Date [...] needed 50 mL 12/07/19 23 Active Nystatin 711131 UNIT/ML Mouth/Throat SuspensionIndicati ons:Thrush Swish and swallow [...] Capsule by mouth every other day. 07/02/19 Active Blood Glucose Monitor System w/Device KitIndications:Typ [...] disease, without long-term current use of insulin ([facility]) Use as directed. 100 Strip 11 07/25/19 [...] taking differently:2 mg OralHS, Reported on 05/08/2024 Azelastine HCl 0.1 % Nasal Solution (Astelin) ADMINISTER TWO SPRAYS INto both nostrils in THE MORNING AND TWO SPRAYS BEFORE BEDTIME 30 mL 2 11/05/2023 6:10 PM EDT 11/04/19 24 025 Active Combivent Respimat 20-100 MCG/ACT Inhalation Aerosol [...] 05/07/2024 2:51 PM EDT 05/06/19 25 Active Metoprolol [...] Chronic right-sided heart failure 03/20/2024 Atherosclerosis of [place] co ronary artery of [place] heart without angina pectoris 04/03/2023 Major depressive [...] leg, left, subsequent encounter 09/2021 Overview (12/05/2021): [facility] ER ulstrasound shows [...] Assessment & Plan (07/10/2021 12:27 PM EDT): [facility] Call: I would have her do the [...] and amiodarone. On warfarin being managed by [facility] pharmacy. History of TIA (transient [...] PM EST): Symptoms well controlled on omeprazole alf current [...] IM/IV Chest Xray Additional Comments: Followed by librarian special collections - Dr. Rashel Sales [facility] Assessment & Plan (12/07/2022 2:00 [...] 40mg IM/IV CBC Chest Xray Followed by librarian special collections - Dr. Rashel Sales [facility] Complicated UTI (urinary tract infection) [...] (07/12/2011): Per CKD protocol #1 [employer] Other*[id number] 06/02/2010 04/18/2011 Overview (06/02/2010): PROJECT: #[id number], SPONSOR: [employer], PI: Adolfo De Jesus MD [...] can be closed. CONTACT: Roberto Carlos Huertas, Motor Vehicles Inspector Type 2 diabetes mellitus wit h [...] CG/0.3 mL, 12 YRS AND ABOVE, IM (PLAXD-Comirnat) 12/03/2022 COVID-19, mRNA, LNP-s, PF, B ooster, [...] PM EDT Anticoagulation Centralized Clinical Pharmacy Services, [place] [place] [address] [place] [address] 05/15/2024 3:00 PM EDT Office Visit Gastroenterology, [place] [facility] [address] Cat Kenny PA-C [address] [facility] [place] [address] 06/11/2024 5:00 PM EDT [facility] [address] [facility] [place] [address] Valentina Laws RN 132 [place] [address] 06/23/2024 2:00 PM EDT Office Visit Hematology/Oncology [facility] [address] [facility] [place] [phone] Bouchra Del Cid CRNP [address] [place] [address] 06/24/2024 1:40 PM EDT Office Visit Family Medicine [address] [place] [phone] Shara Ray MD [address] [place] [address] [place] [address] 07/14/2024 3:00 PM EDT Cardiac Studies Cardiac Studies, Gael Ch[place], [place] [address] [place] [phone] 07/15/2024 2:00 PM EDT Office Visit CardiologyGael [place], [place] [address] [place] [phone] Maria Ines Bowers CRNP [address] [place] [address] 08/20/2024 3:00 PM EDT Office Visit Nephrology [address] [place] [address] Aliyah Lacey MD [address] [facility] [address] [place], [place] [address] 12/09/2024 10:00 AM EDT Office Visit Cardiology[place] [address] [place] [phone] Hadley Molina MD [address] [place] [address] 01/08/2025 2:00 PM EST Office Visit Family Medicine [address] [place] [phone] Shara Ray MD [address] [place] [address] [place] [address] 03/01/2025 2:40 PM EST Office Visit Nephrology [address] [place] [address] Aliyah Lacey MD [facility] [place] [address] Pending Results Name Type Priority Associated Diagnoses Date /Time BASIC METABOLIC PANEL Lab Routine Hypokalemia Chronic right-sided heart failure (HCC) Status post insertion of tricuspid valve leaflet clip 05/08/2024 9:06 AM EDT Scheduled Procedures Name Priority Associated [...] history exists Depression Monitoring 10/27/2024 10/28/2023 GFR 11/06/2024 05/06/2024, 06/2024, 04/15/2024, Additional history exists Mammogram 11/26/2024 11/27/2023, 10/20, 11/15/2022, Additional history exists CKD PHOS USE SMARTSET 29294 03/23/2025 02/0 04/2024, 03/22/2024, 03/21/2024, Additional history exists CKD HGB USE SMARTSET 40933 03/25/202503/25, 03/23/2024, 03/22/2024, Additional history exists DTap/Tdap [...] this encounter Medical Devices Implanted Type Area Blending Supervisor Device Identifier Shelf Expiration Date Model / Serial / Lot Elmer Suture Biocomposite - Sn/A - [id number] Implanted:Qty: 2 on 12/13/2021 by Moris Jimenez, DO at OR [facility] Left: Leg Lower [employer] 07/18/2024 [id number] / N/A / [id number] Vitoss Bbtrauma Foam Pack - [id number] - [id number] Implanted:Qty: 1 on 12/13/2021 by Moris Jimneez DO at OR [facility] Left: Leg Lower MICHA : TRAUMA 01/15/2022 / [id number] / [id number] System Delivery Triclip Xtw - [id number] Implanted:Qty: 1 on 03/18/2024 at [facility] [employer] Aligned 08/11/2025 [id number] / / documented as of this encounter Procedures Procedure Name Priority Date/Time Associated Diagnosis Comments PT INR Routine 05/08/2024 9:06 AM EDT History of TIA (transient ischemic attack) S/P mitral valve replacement Permanent atrial fibrillation (HCC) Anticoagulation management encounter documented in this encounter Results * (ABNORMAL) PT INR (05/08/2024 9:06 AM EDT) Prothrombin Time 55.9(H) 11.6 - 15.2 seconds 05/08/2024 10:03 AM EDT [facility] Comment:Results rechecked. INR 6.2(HH) 0.8 - 1.2 05/08/2024 10:03 AM EDT [facility] Comment:Results rechecked. Blood Venous blood specimen / Unknown Venipuncture / Unknown 05/08/2024 9:06 AM EDT 05/08/2024 9:06 AM EDT Narrative [facility] - 05/08/2024 10:03 AM EDT Warfarin Therapy INR: 2.0-3.0 conventional anticoagulation INR: 2.5-3.5 high intensity anticoagulation Kirby Gates [facility] LAB BLOOD ORDERABLES Kacy colvin Result [facility] [address] [place] [address] documented in this encounter Visit Diagnoses Diagnosis [...] Contusion of unspecified site Permanent atrial fibrillation ([facility]) Atrial fibrillation Chronic obstructive pulmonary disease, unspecified COPD type (HCC) Old myocardial infarct Old myocardial infarction Type 2 diabetes mellitus with stage 3b chronic kidney disease, without long-term current use of insulin ([facility]) Hypothyroidism, postablative Other postablative hypothyroidism Generalized anxiety disorder Permanent atrial fibrillation (HCC)- Primary Atrial fibrillation Type 2 diabetes mellitus with stage 3b chronic kidney disease, without long-term current use of insulin ([facility]) Hypertensive heart and kidney disease with chronic diastolic congestive heart failure and stage 3b chronic kidney disease (HCC) COPD, group B, by GOLD 2017 classification ([facility]) Gastroesophageal reflux disease with esophagitis [...] B, by GOLD 2017 classification ([facility]) Major depressive disorder, recurrent, moderate ([facility]) Major depressive disorder, recurrent episode, moderate Other persistent atrial fibrillation ([facility]) Generalized anxiety disorder Atherosclerosis of [place] coronary artery without angina pectoris, unspecified whether [place] or transplanted heart Hypothyroidism, postablative Other postablative hypothyroidism Dyslipidemia, goal LDL below 100 Other and unspecified hyperlipidemia History of TIA (transient ischemic attack) Transient ischemic attack (TIA), and cerebral infarction without residual deficits S/P mitral valve replacement Heart valve replaced by other means Permanent atrial fibrillation (HCC) Atrial fibrillation Anticoagulation management encounter Encounter for therapeutic drug monitoring Hypokalemia Hypopotassemia Chronic right-sided heart failure (HCC) Congestive heart failure, unspecified Status post insertion of tricuspid valve leaflet clip documented in this encounter Advance Directives * [...] Advance Directives occurred with: Patient Care Teams Seeing Eye Dog Teacher Relationship Specialty Start Date End Date Shara Ray MD [address] [place] [address] [place] [address] PCP - General Family Medicine 12/30/23 documented as of this encounter
--- OUTSIDE RECORDS SUMMARY | 2024-05-12 09:06 | External Medical Summary ---
Author Name Unknown Address Unknown Organization [id number] - [address] [place] [address] Laboratory Report Ordering Provider Test Date Status SONIA PANTOJA 05/08/2024 09:06:48 Final Standing order for pt/inr. < br/>Please draw pt/inr every 1 to 4 weeks as requested.
Results to [facility]

Warfarin Therapy
INR: 2.0-3.0 conventional anticoagulation
INR: 2.5-3.5 high intensity anticoagulation Observation Date Value Abnormality Reference (Units ) Status PT 05/08/2024 09:06:48 55.9 Above high normal 11 .6-15.2 (seconds) Final Results rechecked. INR 05/08/2024 09:06:48 6.2 Above upper panic li mits 0.8-1.2 Final Results rechecked. Performing Location [facility] 0 - [address] [place] [address]
--- OUTSIDE RECORDS SUMMARY | 2024-05-12 09:06 | External Medical Summary ---
Author Name Unknown Address Unknown Organization [id number] - [address] [place] [id number] Laboratory Report Ordering Provider Test Date Status KRISSY VILLARREAL 05/08/2024 09:06:48 Final Observation Date Value Abnormality Reference (Units ) Status BUN 05/08/2024 09:06:48 31 Above high normal 6-20 (mg/dL) Final Creatinine 05/08/2024 09:06:48 2.1 Above high normal 0.5-1.0 (mg/dL) Final Glomerular filtration rate/1.73 sq M.predicted [Volume Rate/Area] in Serum, Plasma or Blood by Creatinine-based formula (CKD-EPI) 05/08/2024 09:06:48 25 Below low normal >=60 (mL/min) Final eGFR is calculated based on the CKD-EPI 2020 equation. Sodium 05/08/2024 09:06:48 139 135-146 (m mol/L) Final Potassium 05/08/2024 09:06:48 4.2 3.5-5.1 (m mol/L) Final Cl 05/08/2024 09:06:48 96 Below low normal 98- 107 (mmol/L) Final CO2 05/08/2024 09:06:48 31 22-32 (mmo l/L) Final Anion gap 05/08/2024 09:06:48 12 7-15 (mmol /L) Final Glucose 05/08/2024 09:06:48 164 Above high normal 70 -120 (mg/dL) Final Calcium 05/08/2024 09:06:48 10.6 Above high normal 8. 4-10.2 (mg/dL) Final Performing Location [facility] 0 - [address] [place] [address]
--- OUTSIDE RECORDS SUMMARY | 2024-05-12 09:06 | External Medical Summary | Summary of Care ---
Author Name Unknown Organization [facility] Address [address] [place] [address] Phone [phone] Care Team Providers Care Engraver Optical Frames Name Role Phone Shara Ray MD Primary Care Provide r Encounter Details Date Type Department Care Team ([facility] st Contact Info) Description 05/07/2024 11:30 AM EDT [facility] [address] [place] [address] Valentina Laws, TANISHA [address] [place] [address] Allergies Active Allergy Reactions Criticality Noted Date [...] needed 50 mL 12/07/19 23 Active Nystatin 370189 UNIT/ML Mouth/Throat SuspensionIndicati ons:Thrush Swish and swallow [...] mg OralQID PRN, Pain, Severe, Reported on 05/07/2024 Buprenorphine 5 MCG/HR Transdermal Patch Weekly (Butrans) [...] Patient taking differently:20 mg OralQ-1999, Reported on 05/07/2024 rOPINIRole HCl 2 MG Oral Tablet (Requip)Indication s:Restless legs syndrome Take 1 Tablet by mouth in the morning and 1 Tablet at noon and 1 Tablet before bedtime. 300 Tablet 3 5 2:51 PM EDT 10/22/19 24 Active Additional Information Patient taking differently:2 mg Oral TID(AM/NOON/HS),1 tablet at HS only, Reported on 05/07/2024 Azelastine HCl 0.1 % Nasal Solution (Astelin) ADMINISTER TWO SPRAYS INto both nostrils in THE MORNING AND TWO SPRAYS BEFORE BEDTIME 30 mL 2 4 6:10 PM EDT 11/04/19 24 025 Active [...] 5 3:48 PM EDT 01/22/20 24 Active Additional Information Patient taking differently:50 mg Oral Daily(AM),25mg every PM, Reported on 05/07/2024 Nitroglycerin 0.4 MG Sublingual Tablet Sublingual (Nitrostat)Indicat ions:Old myocardial infarct,Atrial fibrillation (HCC),HTN, goal to be determined PLACE 1 TABLET UNDER THE TONGUE EVERY 5 MINUTES UP TO 3 DOSES NEEDED FOR CHEST PAIN. IF NO RELIEF CALL 911 OR GO TO ER 75 Tablet 4 12:34 PM EST 02/15/20 24 Active Additional Information Patient not taking.Reported on 04/24/2024 Warfarin Sodium 2.5 MG Oral Tablet (Coumadin) Take as instructed by coumadin pharmacist/clin ic 180 Tablet 1 03/23/19 25 Active Torsemide 100 MG Oral Tablet (Demadex) Take 1 Tablet by mouth in the morning. 90 Tablet 3 5 6:43 PM EST 03/31/19 25 Active Additional Information Patient taking differently: 150 mgOral Daily(AM), Reported on 05/07/2024 Citalopram Hydrobromide 10 MG Oral Tablet (CeleXA)Indication [...] 5 2:51 PM EDT 05/06/19 25 Active predniSONE 20 MG Oral Tablet (Deltasone) Take 20 mg orally daily 5 Tablet 04/30/19 25 025 Discontin ued(Medic ation List Clean Up) documented as of this encounter (statuses as of 05/08/2024) Active Problems Problem Noted Date Diagnosed Date S/P tricuspid valve repair 04/09/2024 Hypothyroidism 04/09/2024 Hyperparathyroidism 04/09/2024 Moderate tricuspid regurgitation 03/23/2024 Esophageal dysmotility 03/23/2024 Chronic right-sided heart failure 03/20/2024 Atherosclerosis of [place] co ronary artery of [place] heart without angina pectoris 04/03/2023 Major depressive [...] in the Comments) Remote Patient Monitoring Vendor: [facility] Device(s): Connected Scale [...] Assessment & Plan (07/10/2021 12:27 PM EDT): [facility] Call: I would have her do [...] and amiodarone. On warfarin being managed by [facility] pharmacy. History of TIA (transient ischemic attack) [...] PM EST): Symptoms well controlled on omeprazole equipment operator [...] IM/IV Chest Xray Additional Comments: Followed by hospitality director - [facility] Rashel [facility] [...] 40mg IM/IV CBC Chest Xray Followed by hospitality director - [facility] Rashel [facility] [...] (07/12/2011): Per CKD protocol #1 [employer] Other*[id number] 06/02/2010 04/18/2011 Overview (06/02/2010): PROJECT: #[id number], SPONSOR: Aileen, PI: Adolfo De Jesus MD [...] can be closed. CONTACT: Roberto Carlos Huertas, Cook Dessert Type 2 diabetes mellitus wit h hemoglobin [...] CG/0.3 mL, 12 YRS AND ABOVE, IM [facility] 12/03/2022 COVID-19, mRNA, LNP-s, PF, B [...] 10/28/2023 Does the household have a re lar source of income? (Household - for ages [...] Sign Reading Time Taken Comments Blood Pressure 110/58 05/07/2024 11:43 AM EDT Pulse 88 05/07/2024 11:43 AM EDT Temperature 36.8 C (98.3 F) 05/07/2024 11:43 AM E DT Respiratory Rate - - Oxygen Saturation 97% 05/07/2024 11:43 AM EDT Inhaled Oxygen Concentration - - Weight - - Height - - Body Mass Index - - documented in this encounter Functional Status * [...] documented in this encounter Progress Notes * Valentina Laws RN - 05/07/2024 11:13 AM EDT Images from the original note were not included. Current Concerns: Patient seen for follow up- Afib, CHF, DM2, H/O falls, s/p tricuspid valve clipping 03/14. ER visit- 04/29- Dx Rhinovirus. Discharged home with 5 day prednisone. Also reports MD noted V-tach episodes. Dr. Molina consulted. Metoprolol succinate increased to 50mg in the am, 25mg in the pm. Recent provider appointment 3/17- Bronchitis- prescribed Augmentin, Robitussin AC. Reports startingto feel a little better, fatigue noted- took cough syrup prior to appointment. VS wnl Lungs clear bilaterally Sob at baseline Oxygen prn day/ HS Weights stable No LE edema Voiding without difficulty Bowels wnl Appetite improving Taking fluids- restriction Pain 08/27- Tramadol Synopsis SmartLink Most Recent Value Past ~8 weeks 05/07/2024 07:17 05/06/2024 06:31 05/05/2024 06:33 Remote Monitoring Intermittent Vitals Weight 60.5 kg (133 lb 7.4 oz) CH:VITAL_READING_TYPE=SPOT CH:PERIPHERAL_BRAND=WITHINGS 05/07/2024 60.5 kg (133 lb 7.4 oz) CH:VITAL_READING_TYPE=SPOT CH:PERIPHERAL_BRAND=WITHINGS 60.6 kg (133 lb 9.8 oz) CH:VITAL_READING_TYPE=SPOT CH:PERIPHERAL_BRAND=WITHINGS 62.1 kg (136 lb 12.9 oz) CH:VITAL_READING_TYPE=SPOT CH:PERIPHERAL_BRAND=WITHINGS Physical Exam: Physical Exam Constitutional: Appearance: Normal appearance. Cardiovascular: [...] and Affect: Mood normal. Behavior: Behavior normal. Review of Systems: Review of Systems Constitutional: Negative. Respiratory: Positive for cough and shortness of breath. Cardiovascular: Negative. Gastrointestinal: Negative. Genitourinary: Negative. Musculoskeletal: Positive for gait problem. Skin: Negative. Hematological: Negative. Psychiatric/Behavioral: Negative. Care Plan Goal Progress: Patient will maintain optimal mobility & activity level. (Progressing) Start: 11/12/23 Expected End: 06/27/24 Patient will achieve & maintain optimal fluid balance. (Progressing) Start: 11/12/23 Expected End: 06/27/24 Patient will have improved cardiac output. (Progressing) Start: 11/12/23 Expected End: 07/24/24 Patient will achieve & maintain effective breathing pattern. (Progressing) Start: 11/12/23 Expected End: 06/27/24 Orders Placed: No orders of the defined types were placed in this encounter. Medications Given: Care Gaps: Care Gaps Care gaps closed this contact: Education (05/07/24 1200) Type of education: Clinical/disease (05/07/24 1200) documented in this encounter Plan of Treatment Upcoming Encounters Date Type Department Care Team (Late st Contact Info) Description 05/08/2024 8:00 AM EDT Office Visit Cardiology, [facility] [address] [place] [address] Angie Alcantar CRNP [address] [place] [address] 05/08/2024 6:00 PM EDT Anticoagulation Centralized Clinical Pharmacy Services, [address] [place] [address] [place] [address] 05/15/2024 3:00 PM EDT Office Visit Gastroenterology, [place] [address] [place] [address] Cat Kenny PA-C [address] [place] [address] 06/11/2024 5:00 PM EDT Home Visit [facility] [place], [facility] [address] [place] [address] Valentina Laws, TANISHA [address] [place] [address] 06/23/2024 2:00 PM EDT Office Visit Hematology/Oncology [facility] Lacy [place] [address] [place] [phone] Bouchra Del Cid CRNP [address] [facility] [place] [address] 06/24/2024 1:40 PM EDT Office Visit Family [address] [place] [phone] Shara Ray MD [address] [place] [address] [place] [address] 07/14/2024 3:00 PM EDT Cardiac Studies Cardiac Studies, [facility] [address] [place] [address] 07/15/2024 2:00 PM EDT Office Visit Cardiology, [facility] [address] [place] [address] Maria Ines Bowers CRNP 132 [place] [address] 08/20/2024 3:00 PM EDT Office Visit Nephrology [address] [place] [address] Aliyah Lacey MD [address] [place] [address] 01/08/2025 2:00 PM EST Office Visit Family Medicine [address] [place] [phone] Shara Ray MD [address] [place] [address] [place] [address] 03/01/2025 2:40 PM EST Office Visit Nephrology [address] [place] [address] Aliyah Lacey MD [address] [place] [address] Scheduled Procedures Name Priority Associated Diagnoses Date/Ti [...] Depression Monitoring 10/27/2024 10/28/2023 GFR 11/06/2024 05/06/2024, 03/0 06/2024, 04/15/2024, Additional history exists Mammogram 11/26/2024 11/27/2023, 10/20, 11/15/2022, Additional history exists CKD PHOS USE SMARTSET 19137 03/23/2025 02/0 04/2024, 03/22/2024, 03/21/2024, Additional history exists CKD HGB USE SMARTSET 62667 03/25/202503/25, 03/23/2024, 03/22/2024, Additional history exists DTap/Tdap [...] this encounter Medical Devices Implanted Type Area Sustainable Communities Designer Device Identifier Shelf Expiration Date Model / Serial / Lot [place] Suture Biocomposite - Sn/A - [id number] Implanted:Qty: 2 on 12/13/2021 by Moris Jimenez DO at OR [facility] Left: Leg Lower [employer] 07/18/2024 [id number] / N/A / [id number] Vitoss Bbtrauma Foam Pack - [id number] - [id number] Implanted:Qty: 1 on 12/13/2021 by Moris Jimenez DO at OR [facility] Left: Leg Lower MICHA : TRAUMA 01/15/20225117-6540 / [id number] / [id number] System Delivery Triclip Xtw - [id number] Implanted:Qty: 1 on 03/18/2024 at [facility] V[employer]ip 08/11/2025 [id number] / / documented as of this [...] Advance Directives occurred with: Patient Care Teams Engraver Optical Frames Relationship Specialty Start Date End Date Shara Ray MD [address] [place] [address] [place] [phone] PCP - General Family Medicine 12/30/23 documented as of this encounter
--- OUTSIDE RECORDS SUMMARY | 2024-05-12 09:07 | External Medical Summary ---
Author Name Unknown Address Unknown Organization K0G:[facility] [address] [place] [address] Laboratory Report Ordering Provider Test Date Status SONIA PANTOJA 05/06/2024 10:18:00 Final Standing order for pt/inr. < br/>Please draw pt/inr every 1 to 4 weeks as requested.
Results to [facility]

Warfarin Therapy
INR: 2.0-3.0 conventional anticoagulation
INR: 2.5-3.5 high intensity anticoagulation Observation Date Value Abnormality Reference (Units ) Status PT 05/06/2024 10:18:00 64.6 Above high normal 11 .6-15.2 (seconds) Final Results rechecked. INR 05/06/2024 10:18:00 7.2 Above upper panic li mits 0.8-1.2 Final Results rechecked. Performing Location [facility] [place] [address]
--- OUTSIDE RECORDS SUMMARY | 2024-05-12 09:07 | External Medical Summary | Summary of Care ---
Author Name Unknown Organization [facility] Address [address] [place] [facility] [place] [place] [address] Phone [phone] Care Team Providers Care Test Engine Mechanic Name Role Phone Shara Ray MD Primary Care Provide r Reason for Visit * Reason Onset Date Comments Test Results 05/06/2024 Encounter Details Date Type Department Care Team (Late st Contact Info) Description 05/06/2024 Telephone Cardiology, [facility] [address] [place] [address] Hadley Molina MD [address] [place] [phone] Test Results Allergies Active Allergy Reactions Criticality [...] as of this encounter (statuses as of 05/06/2024) Medications acetaminophen (TYLENOL) 500 MG Tablet Take [...] needed 50 mL 12/07/19 23 Active Nystatin 708724 UNIT/ML Mouth/Throat SuspensionIndicati ons:Thrush Swish and swallow [...] mg OralQID PRN, Pain, Severe, Reported on 04/24/2024 Buprenorphine 5 MCG/HR Transdermal Patch Weekly (Butrans) [...] Active Additional Information Patient taking differently:20 mg OralQ, Reported on 04/24/2024 rOPINIRole HCl 2 MG Oral Tablet (Requip)Indication s:Restless legs syndrome Take 1 Tablet by mouth in the morning and 1 Tablet at noon and 1 Tablet before bedtime. 300 Tablet 3 01/31/2024 10:16 AM EST 10/22/19 24 Active Azelastine HCl 0.1 % Nasal Solution [...] 02/17/2024 12:34 PM EST 02/15/20 24 Active Additional [...] taking differently: 150 mgOral Daily(AM), Reported on 04/24/2024 Citalopram Hydrobromide 10 MG Oral Tablet (CeleXA)Indication s:BOBBY (generalized anxiety disorder) Take 1 Tablet by mouth in the morning. 90 Tablet 1 04/16/19 25 Active metOLazone 2.5 MG Oral Tablet (Zaroxolyn) Take 1 Tablet by mouth in the morning. Active Spironolactone 12.5 MG OR TABS Take [...] bedtime. 540 Tablet 3 05/01/19 25 Active predniSONE 20 MG Oral Tablet (Deltasone) Take 20 mg orally daily 5 Tablet 04/30/19 25 Active Amoxicillin-Pot Clavulanate 875-125 MG Oral [...] shortness of breath or wheezing 1080 mL 05/06/19 25 Active documented as of this encounter (statuses as of 05/06/2024) Active Problems Problem Noted Date Diagnosed Date S/P tricuspid valve repair 04/09/2024 Hypothyroidism 04/09/2024 Hyperparathyroidism 04/09/2024 Moderate tricuspid regurgitation 03/23/2024 Esophageal dysmotility 03/23/2024 Chronic right-sided heart failure 03/20/2024 Atherosclerosis of [place] co ronary artery of [place] heart without angina pectoris 04/03/2023 Major depressive [...] leg, left, subsequent encounter 09/2021 Overview (12/05/2021): [facility] ER ulstrasound shows [...] mg mon, wed, fri. 80 mg tu, th, sat, sun Spironolactone 12.5 mg daily Assessment & Plan (07/10/2021 12:27 PM EDT): [facility] Call: I would have her do [...] and amiodarone. On warfarin being managed by [facility] pharmacy. History of TIA (transient [...] PM EST): Symptoms well controlled on omeprazole detention current [...] as of this encounter (statuses as of 05/06/2024) Resolved Problems Problem Noted Date Diagnosed Date [...] IM/IV Chest Xray Additional Comments: Followed by credit report checker - Dr. Rashel Sales [facility] Assessment & Plan (12/07/2022 2:00 [...] 40mg IM/IV CBC Chest Xray Followed by credit report checker - [facility] Rashel [facility] [...] (07/12/2011): Per CKD protocol #1 [employer] Other*[id number] 06/02/2010 04/18/2011 Overview (06/02/2010): PROJECT: #[id number], SPONSOR: Aileen, PI: Adolfo De Jesus MD [...] be closed. CONTACT: Roberto Carlos Huertas, Director Of Labor Relations Type 2 diabetes mellitus wit h hemoglobin [...] as of this encounter (statuses as of 05/06/2024) Immunizations Name Administration Dates Next Due COVID-19 mRNA, LNP-s, No Pre serve, 2-Dose Series (Moderna) 04/19/2020,03/22/2020 COVID-19, MRNA-LNP, PF, 30 M CG/0.3 mL, 12 YRS AND ABOVE, IM (Panviva-Comirnat) 12/03/2022 COVID-19, mRNA, LNP-s, PF, B ooster, [...] encounter Miscellaneous Notes * Telephone Encounter - Hakan Silva LPN - 05/06/2024 1:22 PM EDT Sent patient a [employer] message to make aware. ----- Message from Hadley Molina MD sent at 05/06/2024 1:13 PM EDT ----- Stable documented in this encounter Plan of Treatment Upcoming Encounters Date Type Department Care Team (Late st Contact Info) Description 05/07/2024 11:30 AM EDT Home Visit [facility] [address] [place] [address] Valentina Laws, TANISHA [address] [place] [address] 05/08/2024 8:00 AM EDT Office Visit Cardiology, [facility] [address] [place] [address] Angie Alcantar CRNP [address] [place] [address] [place] [address] 05/08/2024 6:00 PM EDT Anticoagulation Centralized Clinical Pharmacy Services, Denia Yee [address] [place] [address] [place] [address] [facility], [address] [place] [address] 05/15/2024 3:00 PM EDT Office Visit Gastroenterology, [place] [address] [place] [address] Cat Kenny PA-C [address] [place] [address] 06/23/2024 2:00 PM EDT Office Visit Hematology/Oncology [facility] Lacy [place] [address] [facility] [place] [address] Bouchra Del Cid CRNP [address] [place] [address] 06/24/2024 1:40 PM EDT Office Visit Family Medicine [address] [place] [phone] Shara Ray MD [address] [place] [address] [place] [address] 07/14/2024 3:00 PM EDT Cardiac Studies Cardiac Studies, [facility] [address] [place] [address] 07/15/2024 2:00 PM EDT Office Visit Cardiology, [facility] [address] [place] [address] Maria Ines Bowers CRNP [address] [place] [address] 08/20/2024 3:00 PM EDT Office Visit Nephrology [address] [place] [address] Aliyah Lacey MD [address] [facility] [place] [address] 01/08/2025 2:00 PM EST Office Visit Family Medicine [address] [place] [phone] Shara Ray MD [address] [place] [address] [place] [address] 03/01/2025 2:40 PM EST Office Visit Nephrology [address] [place] [address] Aliyah Lacey MD [address] [facility] [place] [address] Scheduled Procedures Name Priority Associated Diagnoses Date/Ti [...] Additional history exists CKD PHOS USE SMARTSET 62414 03/23/20250 04/2024, 03/22/2024, 03/21/2024, Additional history exists CKD HGB USE SMARTSET 05299 03/25/202503/25, 03/23/2024, 03/22/2024, Additional history exists DTap/Tdap [...] this encounter Medical Devices Implanted Type Area Operator Engineer Device Identifier Shelf Expiration Date Model / Serial / Lot [place] Suture Biocomposite - Sn/A - [id number] Implanted:Qty: 2 on 12/13/2021 by Moris Jimenez, DO at OR [facility] Left: Leg Lower [employer] 07/18/2024 AR-[id number] / N/A / [id number] Vitoss Bbtrauma Foam Pack - [id number] - [id number] Implanted:Qty: 1 on 12/13/2021 by Moris Jimenez DO at OR [facility] Left: Leg Lower MICHA : TRAUMA 01/15/2022 / [id number] / [id number] System Delivery Triclip Xtw - [id number] Implanted:Qty: 1 on 03/18/2024 at [facility] [employer] 08/11/2025 [id number] / / documented as of this [...] Advance Directives occurred with: Patient Care Teams Test Engine Mechanic Relationship Specialty Start Date End Date Shara Ray MD [address] [place] [address] [place] [phone] PCP - General Family Medicine 12/30/23 documented as of this encounter
--- OUTSIDE RECORDS SUMMARY | 2024-05-12 09:07 | External Medical Summary | Summary of Care ---
Author Name Unknown Organization [facility] Address [address] [place] [address] Phone [phone] Care Team Providers Care Sterile Supervisor Name Role Phone Shara Ray MD Primary Care Provide r Reason for Referral * Medication Prior Authorization - Closed Specialty Diagnoses / Procedures Referred By Contbeverley t Referred To Contact Diagnoses Bronchitis, complicated Edd Kim PA-C [address] [place] [address] [place] [address] Phone: tel: fax: Referral ID Status Reason Start Date Expiration Date Visits Re quested Visits Authorized [id number] Closed [phone] Encounter Details Date Type Department Care Team ([facility] st Contact Info) Description 05/04/2024 Telephone Family Medicine [address] [place] [phone] Edd Kim PA-C [address] [place] [address] [place] [id number] Allergies Active Allergy Reactions Criticality Noted Date [...] needed 50 mL 12/07/19 23 Active Nystatin 442259 UNIT/ML Mouth/Throat SuspensionIndicati ons:Thrush Swish and swallow [...] for cold sores. 4 Tablet 11 06/19/19 Active D3-1000 25 MCG (1000 UT) Oral [...] insulin (HCC) Use as directed. 100 Each 07/25/19 Active [...] Patient taking differently:20 mg OralQ-1999, Reported on 04/24/2024 rOPINIRole HCl 2 MG Oral Tablet (Requip)Indication s:Restless legs syndrome Take 1 Tablet by mouth in the morning and 1 Tablet at noon and 1 Tablet before bedtime. 300 Tablet 3 4 10:16 AM EST 10/22/19 24 Active Azelastine [...] MG/3ML Inhalation Solution (Duoneb) inhale one vial (3mL) via nebulizer four times daily as Needed for shortness of breath or wheezing 1080 mL 4 3:48 PM EST 02/10/20 24 025 Discontin ued(Refil l) documented as of this encounter (statuses as of 05/06/2024) Active Problems Problem Noted Date Diagnosed Date S/P tricuspid valve repair 04/09/2024 Hypothyroidism 04/09/2024 Hyperparathyroidism 04/09/2024 Moderate tricuspid regurgitation 03/23/2024 Esophageal dysmotility 03/23/2024 Chronic right-sided heart failure 03/20/2024 Atherosclerosis of [place] co ronary artery of [place] heart without angina pectoris 04/03/2023 Major depressive [...] subsequent encounter 09/2021 Overview (12/05/2021): [facility] ulstrasound shows hematoma [...] the Comments) Remote Patient Monitoring Vendor: [facility] Device(s): Connected Scale Self - [...] Assessment & Plan (07/10/2021 12:27 PM EDT): [facility] Call: I would have her do the [...] and amiodarone. On warfarin being managed by [facility] pharmacy. History of TIA (transient ischemic [...] PM EST): Symptoms well controlled on omeprazole custodial current use of anticoagulant therapy 0 05/10/2004 [...] IM/IV Chest Xray Additional Comments: Followed by plastics sheet finishing press operator - Dr. Rashel Sales [facility] Assessment & Plan (12/07/2022 2:00 PM EDT): [...] 40mg IM/IV CBC Chest Xray Followed by plastics sheet finishing press operator - Dr. Rashel Sales [facility] Complicated UTI (urinary tract infection) 12/20/2021 05/17/2022 [...] (07/12/2011): Per CKD protocol #1 [employer] Other*[id number] 06/02/2010 04/18/2011 Overview (06/02/2010): PROJECT: #[id number], SPONSOR: Aileen, PI: Adolfo De Jesus MD [...] can be closed. CONTACT: Roberto Carlos Huertas, Construction Equipment Technician Type 2 diabetes mellitus wit h [...] CG/0.3 mL, 12 YRS AND ABOVE, IM ([facility]) 12/03/2022 COVID-19, mRNA, LNP-s, PF, B ooster, [...] encounter Miscellaneous Notes * Telephone Encounter - Marsha Jimenez LPN - 05/05/2024 10:08 AM EDT See pt message encounter * Telephone Encounter - Edd Kim PA-C - 05/05/2024 7:59 AM EDT Med sent to pharm. * Telephone Encounter - Omayra Rosales CMA - 05/04/2024 4:48 PM EDT I spoke to patient and relayed Dr. Martin's recommendations. She recommended delsym OTC, Mucinex and Honey by the tsp as often as she needs. She said that Delsym OTC is the same as prescribed cough syrup without codeine. Patient was not happy. Stated that they have done all those things already. He said so "Edd fucked up". I would not agree to that because there is no reason to believe the patient was getting the medication. Informed patient Edd comes in tomorrow morning and she would review the message then. Additional Information for context: Before I spoke to the patient it had been explained, by Renee, that the providers who were here would not fill the medication. It was not already in the chart fromthe visit, it is a controlled substance, they had not seen her today. I went out to give him the rec ommendations. * Telephone Encounter - Renee Lemus OSA - 05/04/2024 4:14 PM EDT Pt Caregiver Moris Kim here looking for a script of Robitussin with Codeine, stating pt is "really sick": Walked Discussed with remaining providers and nurses for the night and providers agree to wait for edd to sign order since she saw the patient. uLcius is adamant that he needs to have something to felt pad cutter her, Omayra came out and spoke with him to give recommendations from Dr. Martin in the mean time. documented in this encounter Plan of Treatment Upcoming Encounters Date Type Department Care Team (Late st Contact Info) Description 05/07/2024 11:30 AM EDT Home Visit [facility] [address] [place] [address] Valentina Laws, RN [address] [place] [address] 05/08/2024 8:00 AM EDT [facility] 132 [facility] [place] [address] Angie Alcantar CRNP [address] [place] [address] 05/08/2024 6:00 PM EDT Anticoagulation Centralized Clinical Pharmacy Services, Denia Yee [address] [place] [address] [place] [address] Ccps, [address] [place] [address] 05/15/2024 3:00 PM EDT Office Visit Gastroenterology, [place] [address] [place] [address] Cat Kenny PA-C [address] [place], [place] [id number] 06/23/2024 2:00 PM EDT Office Visit Hematology/On[facility] [address] Bouchra Del Cid CRNP [address] [place] [address] 06/24/2024 1:40 PM EDT Office Visit Family Medicine [address] [place] [phone] Shara Ray MD [address] [place] [address] [place] [address] 07/14/2024 3:00 PM EDT Cardiac Studies [facility] 132 [facility] [place] [address] 07/15/2024 2:00 PM EDT Office Visit [facility] 132 [facility] [place] [address] Maria Ines Bowers CRNP [address] [place] [address] 08/20/2024 3:00 PM EDT Office Visit Nephrology [address] [place] [address] Aliyah Lacey MD [address] [place] [address] 01/08/2025 2:00 PM EST Office Visit Family Medicine [address] [place] [address] Shara Ray MD [address] [place] [address] [place] [address] 03/01/2025 2:40 PM EST Office Visit Nephrology [address] [place] [address] Aliyah Lacey MD [address] [place] [address] Scheduled Procedures Name Priority Associated Diagnoses Date/Ti [...] Depression Monitoring 10/27/2024 10/28/2023 GFR 11/06/2024 05/06/2024, 030 06/2024, 04/15/2024, Additional history exists Mammogram 11/26/2024 11/27/2023, 10/20, 11/15/2022, Additional history exists CKD PHOS USE SMARTSET 39549 03/23/2025 02/0 04/2024, 03/22/2024, 03/21/2024, Additional history exists CKD HGB USE SMARTSET 07325 03/25/202503/25, 03/23/2024, 03/22/2024, Additional history exists DTap/Tdap [...] this encounter Medical Devices Implanted Type Area Porcelain Enamel Sprayer Device Identifier Shelf Expiration Date Model / Serial / Lot Waldron Suture Biocomposite - Sn/A - [id number] Implanted:Qty: 2 on 12/13/2021 by Moris Jimenez DO at OR [facility] Left: Leg Lower [employer] 07/18/2024 [id number]-[id number] / N/A / [id number] Vitoss Bbtrauma Foam Pack - [id number] - [id number] Implanted:Qty: 1 on 12/13/2021 by Moris Jimenez DO at OR [facility] Left: Leg Lower MICHA : TRAUMA 01/15/20221429-5430 / [id number] / [id number] System Delivery Triclip Xtw - [id number] Implanted:Qty: 1 on 03/18/2024 at [facility] [employer] 08/11/2025 [id number] / / documented as of this encounter Visit Diagnoses Diagnosis Gastroesophageal reflux disease with esophagitis without hemorrhage- Primary Type 2 diabetes mellitus with stage 3b chronic kidney disease, without long-term current use of insulin ([facility]) Permanent atrial fibrillation ([facility]) Atrial fibrillation Restless legs syndrome Restless legs syndrome (RLS) S/P mitral valve replacement Heart valve replaced by other means Hypertensive heart and kidney disease with chronic diastolic congestive heart failure and stage 3b chronic kidney disease ([facility]) Recurrent falls Personal history of fall Hypertensive heart and kidney disease with chronic diastolic congestive heart failure and stage 3b chronic kidney disease ([facility])- Primary Intramuscular hematoma- Primary Contusion of unspecified site Permanent atrial fibrillation ([facility]) Atrial fibrillation Chronic obstructive pulmonary disease, unspecified COPD type ([facility]) Old myocardial infarct Old myocardial infarction Type 2 diabetes mellitus with stage 3b chronic kidney disease, without long-term current use of insulin ([facility]) Hypothyroidism, postablative Other postablative hypothyroidism Generalized anxiety disorder Permanent atrial fibrillation ([facility])- Primary Atrial fibrillation Type 2 diabetes mellitus with stage 3b chronic kidney disease, without long-term current use of insulin ([facility]) Hypertensive heart and kidney disease with chronic diastolic congestive heart failure and stage 3b chronic kidney disease ([facility]) COPD, group B, by GOLD 2017 classification ([facility]) Gastroesophageal reflux disease with esophagitis [...] fibrillation (HCC) Generalized anxiety disorder Atherosclerosis of grand [place] tribes coronary artery without angina pectoris, unspecified whether grand ronde tribes or transplanted heart Hypothyroidism, postablative Other postablative hypothyroidism Dyslipidemia, goal LDL below 100 Other and unspecified hyperlipidemia Bronchitis, complicated- Primary Bronchitis, not specified as acute or chronic [...] Advance Directives occurred with: Patient Care Teams Sterile Supervisor Relationship Specialty Start Date End Date Shara Ray MD [address] [place] [address] [place] [address] PCP - General Family Medicine 12/30/23 documented as of this encounter
--- OUTSIDE RECORDS SUMMARY | 2024-05-12 09:07 | External Medical Summary | Summary of Care ---
Author Name Unknown Organization [facility] Address [address] [facility] [place] [address] Phone [phone] Care Team Providers Care Salesperson Art Objects Name Role Phone Shara Ray MD Primary Care Provide r Reason for Visit * Reason Comments Dosage Adjustment Via Phone (anticoag Cl inic) Encounter Details Date Type Department Care Team (Late st Contact Info) Description 05/06/2024 6:00 PM EDT Anticoagulation Centralized Clinical Pharmacy Services, [address] [place] [address] [place] [address] penitentiary current use of anticoagulant therapy*; History [...] needed 50 mL 12/07/19 23 Active Nystatin 234188 UNIT/ML Mouth/Throat SuspensionIndicati ons:Thrush Swish and swallow [...] disease, without long-term current use of insulin ([facility]) Check your glucose daily as needed 1 Kit 07/25/19 Active LancetsIndications :Type 2 diabetes mellitus with stage 3b chronic kidney disease, without long-term current use of insulin ([facility]) Use as directed. 100 Each 11 07/25/19 Active Glucose Blood In Vitro StripIndications:T ype 2 diabetes mellitus with stage 3b chronic kidney disease, without long-term current use of insulin ([facility]) Use as directed. 100 Strip 11 07/25/19 [...] Chronic right-sided heart failure 03/20/2024 Atherosclerosis of quile[place] co ronary artery of quileute heart without angina pectoris 04/03/2023 Major depressive [...] leg, left, subsequent encounter 09/2021 Overview (12/05/2021): [facility] ulstrasound shows [...] the Comments) Remote Patient Monitoring Vendor: [facility] Device(s): Connected Scale Self - Management Plan [...] Assessment & Plan (07/10/2021 12:27 PM EDT): [facility] Call: I would have her do [...] Symptoms well controlled on omeprazole 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 Rashel Sales [facility] Assessment & Plan (12/07/2022 2:00 PM EDT): [...] 40mg IM/IV CBC Chest Xray Followed by director franchise sales - Dr. Rashel Sales [facility] Complicated UTI (urinary tract infection) 12/20/2021 05/17/2022 [...] (07/12/2011): Per CKD protocol #1 [employer] Other*[id number] 06/02/2010 04/18/2011 Overview (06/02/2010): PROJECT: #[id number], SPONSOR: Aileen, PI: Adolfo De Jesus MD [...] can be closed. CONTACT: Roberto Carlos Huertas, Bull Float Finisher Type 2 diabetes mellitus wit h hemoglobin [...] CG/0.3 mL, 12 YRS AND ABOVE, IM ([employer]) 12/03/2022 COVID-19, mRNA, LNP-s, PF, B ooster, [...] documented in this encounter Progress Notes * Leroy Lesia Laverne, [facility] - 05/06/2024 2:52 PM EDT Images from the original note were not included. Medication Therapy Disease Management - Anticoagulation Patient: Abdi Bowling | : 1955 Subjective Contacts Contact Date/Time Type Contact Phone/Fax 05/06/2024 02:54 PM EDT Phone (Outgoing) Abdi Bowling (Self) [phone] (M) Patient-Reported Symptoms: Patient Findings Positives: Change in health (Getting over a cold - Decreased appetite over the past week but appetite is better now) Negatives: Signs/symptoms of thrombosis, Signs/symptoms of bleeding, Change in alcohol use, Change in activity, Upcoming invasive procedure, Missed doses, Extra doses, Change in medications, Change in diet/appetite, Bruising Comments: High INR: Counseled patient on the significance of INR elevation, the increased bleed risk associated with such, sign/symptoms of bleeding, and when to seek medical attention. Notes states to not hold Warfarin per cardiology - only take lower dose however advised I recommendholding x 2 due to elevated INR. Patient agreeable to holding x 1 and taking a lower dose tomorrow but will not hold x 2 days in a row. As patient has no bleeding concerns and INR likely high due to a decreased appetite that is now resolved will plan on Hold today, lower dose tomorrow and re-check I NR with GML Saturday. Will re-evaluate with INR Saturday. Objective Current Warfarin Dose As of 05/06/2024 Warfarin maintenance plan: 7.5 mg (2.5 mg x 3) every Mon; 5 mg (2.5 mg x 2) all other days INR Result As of 05/06/2024 INR goal: 3.0-3.5 INR used for dosin.2 (05/06/2024) Assessment & Plan Warfarin Plan As of 05/06/2024 Full warfarin instructions: 05/06: Hold; 05/07: 2.5 mg; Otherwise 7.5 mg every Mon; 5 mg all other days Next INR check: 05/08/2024 Repeat PT/INR in 2 day(s) Weekly dose: Not changed Additional Dosing Information: Description GML WedFri, prefers Wed ([facility], [facility], or [facility]) Please also send myG message Lesia Harper [facility] Clinical Pharmacist 05/06/2024, 2:53 PM documented in this encounter Plan of Treatment Upcoming Encounters Date Type Department Care Team (Late st Contact Info) Description 05/07/2024 11:30 AM EDT Home Visit [facility] [address] [place] [address] Valentina Laws, TANISHA 132 [place] [address] 05/08/2024 8:00 AM EDT Office Visit Cardiology, [facility] [address] [place] [address] Angie Alcantar CRNP [address] [place] [address] [place] [address] 05/08/2024 6:00 PM EDT Anticoagulation Centralized Clinical Pharmacy Services, Denia Yee [address] [place] [address] [place] [address] [place] [address] 05/15/2024 3:00 PM EDT Office Visit Gastroenterology, [place] [address] [place] [address] Cat Kenny PA-C [address] [place] [address] 06/23/2024 2:00 PM EDT Office Visit Hematology/Oncology [facility] [place] 200 [facility] [place] [phone] Bouchra Del Cid CRNP 400 [facility] [place] [address] 06/24/2024 1:40 PM EDT Office Visit Family Medicine [address] [place] [address] Shara Ray MD [address] [place] [address] [place] [address] 07/14/2024 3:00 PM EDT Cardiac Studies [facility], [facility] [address] 07/15/2024 2:00 PM EDT Office Visit [facility], [facility] 132 [facility] [address] Maria Ines Bowers CRNP 132 [facility] [place] [address] 08/20/2024 3:00 PM EDT Office Visit Nephrology [address] [place] [address] Aliyah Lacey MD [address] [place] [address] 01/08/2025 2:00 PM EST Office Visit Family Medicine [address] [place] [address] Shara Ray MD [address] [place] [address] [place] [address] 03/01/2025 2:40 PM EST Office Visit Nephrology [address] [place] [address] Aliyah Lacey MD [address] [place] [address] Scheduled Procedures Name Priority Associated Diagnoses Date/Ti [...] 07/19, 04/24/2023, Additional history exists Albumin/Creatinine Ratio 09/25/20242 024, 05/07/2023, 12/03/2022, Additional history exists Depression Monitoring 10/27/2024 10/28/2023 GFR 11/06/2024 05/06/2024, 0306/2024, 04/15/2024, Additional history exists Mammogram 11/26/2024 11/27/2023, 10/20, 11/15/2022, Additional history exists CKD PHOS USE SMARTSET 76974 03/23/2025 02/0 04/2024, 03/22/2024, 03/21/2024, Additional history exists CKD HGB USE SMARTSET 97820 03/25/202503/25, 03/23/2024, 03/22/2024, Additional history exists DTap/Tdap [...] this encounter Medical Devices Implanted Type Area Numerologist Device Identifier Shelf Expiration Date Model / Serial / Lot Justice Suture Biocomposite - Sn/A - [id number] Implanted:Qty: 2 on 12/13/2021 by Moris Jimenez DO at OR [facility] Left: Leg Lower [employer] 07/18/2024 AR-2324BCC / N/A / [id number] Vitoss Bbtrauma Foam Pack - [id number] - [id number] Implanted:Qty: 1 on 12/13/2021 by Moris Jimenez DO at OR [facility] Left: Leg Lower MICHA : TRAUMA 01/15/2022 [id number] / [id number] System Delivery Triclip Xtw - [id number] Implanted:Qty: 1 on 03/18/2024 at [facility] [employer] 08/11/2025 [id number] / / documented as of this encounter Visit Diagnoses Diagnosis Gastroesophageal reflux disease with esophagitis without hemorrhage- Primary Type 2 diabetes mellitus with stage 3b chronic kidney disease, without long-term current use of insulin ([facility]) Permanent atrial fibrillation (HCC) Atrial fibrillation Restless legs syndrome Restless legs syndrome (RLS) S/P mitral valve replacement Heart valve replaced by other means Hypertensive heart and kidney disease with chronic diastolic congestive heart failure and stage 3b chronic kidney disease ([facility]) Recurrent falls Personal history of fall Hypertensive heart and kidney disease with chronic diastolic congestive heart failure and stage 3b chronic kidney disease ([facility])- Primary Intramuscular hematoma- Primary Contusion of unspecified site Permanent atrial fibrillation ([facility]) Atrial fibrillation Chronic obstructive pulmonary disease, unspecified COPD type ([facility]) Old myocardial infarct Old myocardial infarction Type 2 diabetes mellitus with stage 3b chronic kidney disease, without long-term current use of insulin ([facility]) Hypothyroidism, postablative Other postablative hypothyroidism Generalized anxiety disorder Permanent atrial fibrillation (HCC)- Primary Atrial fibrillation Type 2 diabetes mellitus with stage 3b chronic kidney disease, without long-term current use of insulin ([facility]) Hypertensive heart and kidney disease with chronic diastolic congestive heart failure and stage 3b chronic kidney disease ([facility]) COPD, group B, by GOLD 2017 classification ([facility]) Gastroesophageal reflux disease with esophagitis without hemorrhage Hypothyroidism, postablative Other postablative hypothyroidism Dyslipidemia, goal LDL below 100 Other and unspecified hyperlipidemia Restless legs syndrome Restless legs syndrome (RLS) Iron deficiency anemia, unspecified iron deficiency anemia type Hypertensive heart and kidney disease with chronic diastolic congestive heart failure and stage 3b chronic kidney disease (HCC)- Primary COPD, group B, by GOLD 2017 classification ([facility]) Major depressive disorder, recurrent, moderate ([facility]) Major depressive disorder, recurrent episode, moderate Other persistent atrial fibrillation ([facility]) Generalized anxiety disorder Atherosclerosis of qu[place] coronary artery without angina pectoris, unspecified whether quile[place] or transplanted heart Hypothyroidism, postablative Other postablative hypothyroidism Dyslipidemia, goal LDL below 100 Other and unspecified hyperlipidemia 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
--- OUTSIDE RECORDS SUMMARY | 2024-05-12 09:08 | External Medical Summary | Summary of Care ---
Author Name Unknown Organization [facility] Address [address] [place] [address] Phone [phone] Care Team Providers Care Dust Mixer Name Role Phone Shara Ray MD Primary Care Provide r Reason for Referral * Medication Prior Authorization - Closed Specialty Diagnoses / Procedures Referred By Contbeverley t Referred To Contact Diagnoses Bronchitis, complicated Edd Kim PA-C [address] [place] [address] [place] [address] Phone: tel: fax: Referral ID Status Reason Start Date Expiration Date Visits Re quested Visits Authorized [id number] Closed [phone] Encounter Details Date Type Department Care Team ([facility] st Contact Info) Description 05/04/2024 Telephone Family Medicine [address] [place] [phone] Edd Kim PA-C [address] [place] [address] [place] [id number] Allergies Active Allergy Reactions Criticality Noted Date [...] as of this encounter (statuses as of 05/05/2024) Medications acetaminophen (TYLENOL) 500 MG Tablet Take [...] needed 50 mL 12/07/19 23 Active Nystatin 873257 UNIT/ML Mouth/Throat SuspensionIndicati ons:Thrush Swish and swallow [...] insulin (HCC) Use as directed. 100 Strip 07/25/19 Active [...] mouth in the morning. 90 Tablet 1 01/23/2024 12:21 PM EST 01/22/20 24 Active Ipratropium-Albute rol 0.5-2.5 (3) MG/3ML Inhalation Solution (Duoneb) inhale one vial (3mL) via nebulizer four times daily as Needed for shortness of breath or wheezing 1080 mL 02/10/2024 3:48 PM EST 02/10/20 24 Active Nitroglycerin 0.4 MG Sublingual Tablet [...] for Cough. 120 mL 05/06/19 25 Active documented as of this encounter (statuses as of 05/05/2024) Active Problems Problem Noted Date Diagnosed Date S/P tricuspid valve repair 04/09/2024 Hypothyroidism 04/09/2024 Hyperparathyroidism 04/09/2024 Moderate tricuspid regurgitation 03/23/2024 Esophageal dysmotility 03/23/2024 Chronic right-sided heart failure 03/20/2024 Atherosclerosis of [place] co ronary artery of [place] heart without angina pectoris 04/03/2023 Major depressive [...] left, subsequent encounter 09/2021 Overview (12/05/2021): [facility] ER ulstrasound shows hematoma [...] Assessment & Plan (07/10/2021 12:27 PM EDT): [facility] Call: I would have her do [...] and amiodarone. On warfarin being managed by [facility] pharmacy. History of TIA (transient ischemic [...] PM EST): Symptoms well controlled on omeprazole jail current [...] as of this encounter (statuses as of 05/05/2024) Resolved Problems Problem Noted Date Diagnosed Date [...] IM/IV Chest Xray Additional Comments: Followed by charter coach driver - Dr. Rashel Sales [facility] Assessment & Plan (12/07/2022 2:00 PM [...] 40mg IM/IV CBC Chest Xray Followed by charter coach driver - Dr. Rashel Sales [facility] [...] (07/12/2011): Per CKD protocol #1 [employer] Other*[id number] 06/02/2010 04/18/2011 Overview (06/02/2010): PROJECT: #[id number], SPONSOR: Aileen, PI: Adolfo De Jesus MD [...] can be closed. CONTACT: Roberto Carlos Huertas, Stick Puller Type 2 diabetes mellitus wit h hemoglobin [...] Taxonomy. Other abnormal glucose 03/13/200509/24 Mixed dyslipidemia 04/08/2002200 9 Overview (02/03/2009): Per Lipid Taxonomy. Anticoagulation [...] as of this encounter (statuses as of 05/05/2024) Immunizations Name Administration Dates Next Due COVID-19 mRNA, LNP-s, No Pre serve, 2-Dose Series (Moderna) 04/19/2020,03/22/2020 COVID-19, MRNA-LNP, PF, 30 M CG/0.3 mL, 12 YRS AND ABOVE, IM (PFIZER-Comirnat) [...] sign order since she saw the patient. Lucius is adamant that he needs to have something to digital proofing and platemaker her, Omayra came out and spoke with him to give recommendations from Dr. Martin in the mean time. documented in this encounter Plan of Treatment Upcoming Encounters Date Type Department Care Team (Late st Contact Info) Description 05/06/2024 7:05 AM EDT Laboratory Lab Mobile Phlebotomy [address] [place] [address] [facility] Mobile Home Draw [address] [place] [address] [place] [address] 05/07/2024 6:00 AM EDT Anticoagulation Centralized Clinical Pharmacy Services, Denia Yee [address] [place] [address] [place] Rodríg[place] [address] [facility] [place] [address] 05/07/2024 11:30 AM EDT [facility] [address] [place] [address] Valentina Laws RN [address] [place] [address] 05/15/2024 3:00 PM EDT Office Visit Gastroenterology, [place] [address] [place] [address] Cat Kenny PA-C [address] [place] [address] 05/21/2024 1:30 PM EDT Office Visit Cardiology, [facility] [address] [facility] [place] [address] Hadley Molina MD 132 [facility] [place] [address] 06/23/2024 2:00 PM EDT Office Visit Hematology/Oncology [facility] 200 [facility] [phone] Bouchra Del Cid CRNP [address] [place] [address] 06/24/2024 1:40 PM EDT Office Visit Family Medicine [address] [place] [phone] Shara Ray MD [address] [place] [address] [place] [address] 07/15/2024 2:00 PM EDT [facility] [address] [facility] [place] [address] Maria Ines Bowers CRNP [address] [place] [address] 08/20/2024 3:00 PM EDT Office Visit Nephrology [address] [place] [address] Aliyah Lacey MD [address] [place] [address] 01/08/2025 2:00 PM EST Office Visit Family Medicine [address] [place] [phone] Shara Ray MD [address] [place] [address] [place] [address] 03/01/2025 2:40 PM EST Office Visit Nephrology [address] [place] [address] Aliyah Lacey MD [address] [place], [place] [address] Scheduled Procedures Name Priority Associated Diagnoses Date/Ti [...] 09/25/2024 024, 05/07/2023, 12/03/2022, Additional history exists GFR 10/23/2024 04/22/2024, 03/22, 04/09/2024, Additional history exists Depression Monitoring 10/27/2024 10/28/2023 Mammogram 11/26/2024 11/27/2023, 10/20, 11/15/2022, Additional history exists CKD PHOS USE SMARTSET 99565 03/23/2025 02/0 04/2024, 03/22/2024, 03/21/2024, Additional history exists CKD HGB USE SMARTSET 00492 03/25/202503/25, 03/23/2024, 03/22/2024, Additional history exists DTap/Tdap [...] this encounter Medical Devices Implanted Type Area Agricultural Equipment Design Engineer Device Identifier Shelf Expiration Date Model / Serial / Lot [place] Suture Biocomposite - Sn/A - [id number] Implanted:Qty: 2 on 12/13/2021 by Moris Jimenez DO at OR [facility] Left: Leg Lower [employer] 07/18/2024 [id number] / N/A / [id number] Vitoss Bbtrauma Foam Pack - [id number] - [id number] Implanted:Qty: 1 on 12/13/2021 by Moris Jimenez DO at OR [facility] Left: Leg Lower MICHA : TRAUMA 01/15/20224017-2832 / [id number] / [id number] System Delivery Triclip Xtw - [id number] Implanted:Qty: 1 on 03/18/2024 at [facility] [employer] 08/11/2025 [id number] / / documented as of this encounter Visit Diagnoses Diagnosis Gastroesophageal reflux disease with esophagitis without hemorrhage- Primary Type 2 diabetes mellitus with stage 3b chronic kidney disease, without long-term current use of insulin ([facility]) Permanent atrial fibrillation ([facility]) Atrial fibrillation Restless legs syndrome Restless legs syndrome (RLS) S/P mitral valve replacement Heart valve replaced by other means Hypertensive heart and kidney disease with chronic diastolic congestive heart failure and stage 3b chronic kidney disease ([facility]) Recurrent falls Personal history of fall Hypertensive heart and kidney disease with chronic diastolic congestive heart failure and stage 3b chronic kidney disease ([facility])- Primary Intramuscular hematoma- Primary Contusion of unspecified site Permanent atrial fibrillation ([facility]) Atrial fibrillation Chronic obstructive pulmonary disease, unspecified COPD type ([facility]) Old myocardial infarct Old myocardial infarction Type 2 diabetes mellitus with stage 3b chronic kidney disease, without long-term current use of insulin ([facility]) Hypothyroidism, postablative Other postablative hypothyroidism Generalized anxiety disorder Permanent atrial fibrillation ([facility])- Primary Atrial fibrillation Type 2 diabetes mellitus with stage 3b chronic kidney disease, without long-term current use of insulin ([facility]) Hypertensive heart and kidney disease with chronic diastolic congestive heart failure and stage 3b chronic kidney disease ([facility]) COPD, group B, by GOLD 2017 classification ([facility]) Gastroesophageal reflux disease with esophagitis [...] fibrillation (HCC) Generalized anxiety disorder Atherosclerosis of [place] coronary artery without angina pectoris, unspecified whether [place] or transplanted heart Hypothyroidism, postablative Other postablative [...] Advance Directives occurred with: Patient Care Teams Dust Mixer Relationship Specialty Start Date End Date Shara Ray MD [address] [place] [address] [place] [address] PCP - General Family Medicine 12/30/23 documented as of this encounter
--- OUTSIDE RECORDS SUMMARY | 2024-05-12 09:08 | External Medical Summary | Summary of Care ---
Author Name Unknown Organization [facility] Address [address] [place] [address] Phone [phone] Care Team Providers Care Steersman Name Role Phone Shara Ray MD Primary Care Provide r Reason for Visit * Reason Comments eRx-Medication Refill Encounter Details Date Type Department Care Team (Late st Contact Info) Description 05/01/2024 Refill Cardiology, [facility] [address] [place] [address] Hadley Molina MD [address] [place] [address] Allergies Active Allergy Reactions Criticality Noted Date [...] needed 50 mL 12/07/19 23 Active Nystatin 734522 UNIT/ML Mouth/Throat SuspensionIndicati ons:Thrush Swish and swallow [...] orally daily 5 Tablet 04/30/19 25 Active documented as of this encounter (statuses as of 05/05/2024) Active Problems Problem Noted Date Diagnosed Date S/P tricuspid valve repair 04/09/2024 Hypothyroidism 04/09/2024 Hyperparathyroidism 04/09/2024 Moderate tricuspid regurgitation 03/23/2024 Esophageal dysmotility 03/23/2024 Chronic right-sided heart failure 03/20/2024 Atherosclerosis of [place] co ronary artery of [place] heart without angina pectoris 04/03/2023 Major depressive [...] leg, left, subsequent encounter 09/2021 Overview (12/05/2021): [facility] ER ulstrasound shows hematoma calf, INR [...] Assessment & Plan (07/10/2021 12:27 PM EDT): [facility] Call: I would have [...] and amiodarone. On warfarin being managed by [facility] pharmacy. History of TIA (transient [...] PM EST): Symptoms well controlled on omeprazole senior living [...] IM/IV Chest Xray Additional Comments: Followed by flood control engineer - Dr. Rashel Sales [facility] Assessment & Plan (12/07/2022 2:00 PM EDT): [...] 40mg IM/IV CBC Chest Xray Followed by flood control engineer - Dr. Rashel Sales [facility] Complicated UTI (urinary tract infection) 12/20/2021 05/17/2022 [...] (07/12/2011): Per CKD protocol #1 [employer] Other*[id number] 06/02/2010 04/18/2011 Overview (06/02/2010): PROJECT: #[id number], SPONSOR: Aileen, PI: Adolfo De Jesus MD [...] can be closed. CONTACT: Roberto Carlos Huertas, Manager Registration Type 2 diabetes mellitus wit h hemoglobin [...] CG/0.3 mL, 12 YRS AND ABOVE, IM ([employer] Engenh[employer] de Fluidos-ComirnatBizmore) 12/03/2022 COVID-19, mRNA, LNP-s, PF, B ooster, [...] money to buy more. Never true 10/28/19 Within the past 12 months, t he [...] encounter Miscellaneous Notes * Telephone Encounter - [facility] - 05/04/2024 4:42 PM EDTRefused Prescriptions: Disp Refills metOLazone 5 MG Oral Tablet (Zaroxolyn) 12 Tab*5 Sig: Take one 1/2 hour prior to torsemide in the morning on days directedRefused By: LONI HARRIS forRefusal: Patient Should Contact Provider First * Telephone Encounter - Loni Harris [facility] - 05/02/2024 2:31 PM EDTPending Prescriptions: Disp Refills metOLazone 5 MG Oral Tablet [Pharmacy Med *12 Tab*5 Sig: Take one 1/2 hour prior to torsemide in the morning on days directed * Telephone Encounter - Loni Harris [facility] - 05/02/2024 2:26 PM EDT Per 04/22/24 OV note: Metolazone remains on medlist for as needed dosing which is determined when patient calls in with symptoms or weight increase. documented in this encounter Plan of Treatment Upcoming Encounters Date Type Department Care Team (Late st Contact Info) Description 05/06/2024 7:05 AM EDT Laboratory Lab Mobile Phlebotomy [address] [place] [address] [facility] Mobile Home Draw [address] [place] [address] [place] [address] 05/07/2024 6:00 AM EDT Anticoagulation Centralized Clinical Pharmacy Services, Denia Yee [address] [place] [address] [place] [address] [facility], [address] [place] [address] 05/07/2024 11:30 AM EDT [facility] [address] [place] [address] Valentina Laws RN 132 [facility] [place] [address] 05/15/2024 3:00 PM EDT Office Visit Gastroenterology, [place] [address] [place], [place] [phone] Cat Kenny PA-C [address] [place] [address] 05/21/2024 1:30 PM EDT Office Visit Cardiology, [facility] 132 [facility] [place] [address] Hadley Molina MD 132 [facility] [place] [address] 06/23/2024 2:00 PM EDT Office Visit Hematology/Oncology [facility] 200 [facility] [place] [phone] Bouchra Del Cid CRNP [address] [place] [address] [place] MOR[place]Z [phone] 06/24/2024 1:40 PM EDT Office Visit Family [address] [place] [phone] Shara Ray MD [address] [place] [address] [place] [address] 07/15/2024 2:00 PM EDT Office Visit Cardiology, [facility] [address] [place] [facility] [address] Maria Ines Bowers CRNP [address] [place] [address] 08/20/2024 3:00 PM EDT Office Visit Nephrology [address] [place] [address] Aliyah Lacey MD [address] [place] [address] 01/08/2025 2:00 PM EST Office Visit Family [address] [place] [phone] Shara Ray MD [address] [place] [address] [place] [address] 03/01/2025 2:40 PM EST Office Visit Nephrology [address] [place] [address] Aliyah Lacey MD [address] [place] [address] Scheduled Procedures Name Priority Associated Diagnoses Date/Ti [...] Additional history exists CKD PHOS USE SMARTSET 00959 03/23/2025 02/0 04/2024, 03/22/2024, 03/21/2024, Additional history exists CKD HGB USE SMARTSET 97621 03/25/202503/25, 03/23/2024, 03/22/2024, Additional history exists DTap/Tdap [...] this encounter Medical Devices Implanted Type Area Dragline Operator Device Identifier Shelf Expiration Date Model / Serial / Lot [place] Suture Biocomposite - Sn/A - [id number] Implanted:Qty: 2 on 12/13/2021 by Moris Jimenez, DO at OR [facility] Left: Leg Lower [employer] 07/18/2024 AR-2324BCC / N/A / [id number] Vitoss Bbtrauma Foam Pack - [id number] - [id number] Implanted:Qty: 1 on 12/13/2021 by Moris Jimenez, DO at OR [facility] Left: Leg Lower MICHA : TRAUMA 01/15/20224321-1247 / [id number] / [id number] System Delivery Triclip Xtw - [id number] Implanted:Qty: 1 on 03/18/2024 at [facility] [employer] 08/11/2025 [id number] / / documented as of this [...] Advance Directives occurred with: Patient Care Teams Steersman Relationship Specialty Start Date End Date Shara Ray MD [address] [place] [address] [place] [address] PCP - General Family Medicine 12/30/23 documented as of this encounter
--- OUTSIDE RECORDS SUMMARY | 2024-05-12 09:08 | External Medical Summary ---
Author Name Unknown Address Unknown Organization K0G:[facility] [address] [place] [address] Laboratory Report Ordering Provider Test Date Status TOÑA HONG 05/06/2024 10:18:00 Final Observation Date Value Abnormality Reference (Units ) Status BUN 05/06/2024 10:18:00 43 Above high normal 6-20 (mg/dL) Final Creatinine 05/06/2024 10:18:00 2.3 Above high normal 0.5-1.0 (mg/dL) Final Glomerular filtration rate/1.73 sq M.predicted [Volume Rate/Area] in Serum, Plasma or Blood by Creatinine-based formula (CKD-EPI) 05/06/2024 10:18:00 23 Below low normal >=60 (mL/min) Final eGFR is calculated based on the CKD-EPI 2020 equation. Sodium 05/06/2024 10:18:00 141 135-146 (m mol/L) Final Potassium 05/06/2024 10:18:00 3.7 3.5-5.1 (m mol/L) Final Cl 05/06/2024 10:18:00 96 Below low normal 98- 107 (mmol/L) Final CO2 05/06/2024 10:18:00 33 Above high normal 22 -32 (mmol/L) Final Anion gap 05/06/2024 10:18:00 12 7-15 (mmol /L) Final Glucose 05/06/2024 10:18:00 74 70-120 (mg /dL) Final Calcium 05/06/2024 10:18:00 10.8 Above high normal 8. 4-10.2 (mg/dL) Final Performing Location [facility] [address] [place] [address]
--- OUTSIDE RECORDS SUMMARY | 2024-05-12 09:08 | External Medical Summary | Summary of Care ---
Author Name Unknown Organization [facility] Address [address] [facility] [address] Phone [phone] Care Team Providers Care Director Digital Marketing Name Role Phone Shara Ray MD Primary Care Provide r Reason for Visit * Reason Comments Acute Pt c/o cough x over two weeks, pain across back. Encounter Details Date Type Department Care Team (Late st Contact Info) Description 05/04/2024 3:00 PM EDT Office Visit Family Medicine [address] [place] [address] Chastity Kim PA-C [address] [place] [address] [place] [address] Bronchitis, complicated* Allergies Active Allergy Reactions Criticality Noted Date [...] as of this encounter (statuses as of 05/04/2024) Medications acetaminophen (TYLENOL) 500 MG Tablet Take [...] needed 50 mL 12/07/19 23 Active Nystatin 369487 UNIT/ML Mouth/Throat SuspensionIndicati ons:Thrush Swish and swallow [...] days. 20 Tablet 05/05/19 25 025 Active documented as of this encounter (statuses as of 05/04/2024) Active Problems Problem Noted Date Diagnosed Date S/P tricuspid valve repair 04/09/2024 Hypothyroidism 04/09/2024 Hyperparathyroidism 04/09/2024 Moderate tricuspid regurgitation 03/23/2024 Esophageal dysmotility 03/23/2024 Chronic right-sided heart failure 03/20/2024 Atherosclerosis of [place] co ronary artery of [place] heart without angina pectoris 04/03/2023 Major depressive [...] leg, left, subsequent encounter 09/2021 Overview (12/05/2021): [facility] ER ulstrasound shows hematoma [...] this interval not displayed. Medication Regimen: Beta Galnia Therapy: Metoprolol Tartrate VINCENT Inhibitor/ARB Therapy: No [...] Assessment & Plan (07/10/2021 12:27 PM EDT): [facility] Call: I would have her do [...] amiodarone. On warfarin being managed by [facility] pharmacy. History of TIA (transient ischemic [...] PM EST): Symptoms well controlled on omeprazole shelter current [...] as of this encounter (statuses as of 05/04/2024) Resolved Problems Problem Noted Date Diagnosed Date [...] IM/IV Chest Xray Additional Comments: Followed by surgical first assistant - Dr. Rashel Sales [facility] Assessment & Plan (12/07/2022 [...] 40mg IM/IV CBC Chest Xray Followed by surgical first assistant - Dr. Rashel Sales [facility] Complicated UTI (urinary tract [...] (07/12/2011): Per CKD protocol #1 [employer] Other*[id number] 06/02/2010 04/18/2011 Overview (06/02/2010): PROJECT: #[id number], SPONSOR: Aileen, PI: Adolfo De Jesus MD [...] can be closed. CONTACT: Roberto Carlos Huertas, Cement Mixer Driver Type 2 diabetes mellitus wit h hemoglobin [...] as of this encounter (statuses as of 05/04/2024) Immunizations Name Administration Dates Next Due COVID-19 mRNA, LNP-s, No Pre serve, 2-Dose Series (Moderna) 04/19/2020,03/22/2020 COVID-19, MRNA-LNP, PF, 30 M CG/0.3 mL, 12 YRS AND ABOVE, IM ([facility]) 12/03/2022 COVID-19, mRNA, LNP-s, PF, B [...] Sign Reading Time Taken Comments Blood Pressure 134/75 05/04/2024 2:49 PM EDT Pulse 70 05/04/2024 2:49 PM EDT Temperature - - Respiratory Rate - - Oxygen Saturation 97% 05/04/2024 2:49 PM EDT Inhaled Oxygen Concentration - - [...] documented in this encounter Progress Notes * Chastity Kim PA-C - 05/04/2024 2:52 PM EDT Chief Complaint Patient presents with Acute Pt c/o cough x over two weeks, pain across back. Pt here today with cough, chest congestion for the past 2 weeks. She has some pain across her back with coughing. Pt denies fever, chills, nausea, vomiting, diarrhea, chest pain, SOB. She has mild nasal/head congestion. Pt denies sore throat, ear pain. Pt states that she went to [facility] and was told she had rhinovirus, a week or more ago. She was given prednisone at the time. Review of patient's allergies indicates: Allergen Reactions Budesonide Other (Please comment) trouble breathing Hydroxyzine Other reaction(s): DYSTONIA Metformin Other reaction(s): DIARRHEA Vincent Inhibitors cough Gabapentin Neuro complications (Please comment) confusion Lovenox [Enoxaparin] Oxycodone " numb all over" Phenothiazines Unknown Nuchal dystonia Prochlorperazine Neuro complications (Please comment) dystonia Promethazine Tetracycline Nausea/vomiting Current Outpatient Medications Medication Sig [...] ulcers as needed 50 mL 0 Nystatin 091564 UNIT/ML Mouth/Throat Suspension Swish and swallow 5 [...] Tablet at noonand 1 Tablet before bedtime. 300 Tablet 3 Azelastine HCl 0.1 % [...] mouth in the morning. 90 Tablet 1 Ipratropium-Albuterol 0.5-2.5 (3) MG/3ML Inhalation Solution (Duoneb) inhale one vial (3mL) via nebulizer four times daily as Needed for shortness of breath or wheezing 1080 mL 0 Nitroglycerin 0.4 MG Sublingual Tablet Sublingual (Nitrostat) PLACE 1 TABLET UNDER THE TONGUE EVERY5 MINUTES UP TO 3 DOSES NEEDED FOR CHEST PAIN. IF NO RELIEF CALL 911 OR GO TO ER (Patient not taking: Reported on 04/24/2024) 75 Tablet 0 Warfarin Sodium 2.5 MG [...] 1 Tablet by mouth in the morning. Spironolactone 12.5 MG OR TABS Take by [...] 2 Tablets before bedtime. 540 Tablet 3 predniSONE 20 MG Oral Tablet (Deltasone) Take 20 mg orally daily 5 Tablet 0 No current facility-administered medications for this visit. Past Medical History: Diagnosis Date Acute on chronic diastolic CHF (congestive heart failure) ([facility]) 07/18/2021 [facility] Anticoagulation management encounter 08/06/2001 INR 3-3.5 Anxiety attack 06/23/2021 Evaluated [facility] ER Atrial fibrillation ([facility]) Bronchitis 02/18/2022 got sick on 9 days En cruise Coronary atherosclerosis of [place] coronary artery Cough variant asthma 01/16/2021 COVID-19 10/14/2020 Cystitis 12/12/2021 [place] Klebsiella and E coli Diverticulosis of colon (without mention of hemorrhage) 07/16/2013 sigmoid & descending colon DM type 2, goal A1c below 7 diet controlled Dyslipidemia, goal LDL below 70 09/24/2013 Encounter for hepatitis C screening test for low risk patient 03/28/2021 negative Esophageal reflux 12/03/2008 min gastric inflammation and mod active chronic esophageal inflammation-repeat EGD in 2 yrs Facial paresthesia 05/21/2018 [facility] possibly stress Fracture of left tibial tuberosity 12/07/2021 [place] knee replaced GENERAL OSTEOARTHROSIS 01/31/2010 Generalized anxiety disorder 06/26/2021 citalopram started Hemarthrosis involving knee joint Hematoma of left lower leg 11/25/2021 [facility] ER ulstrasound shows hematoma calf, INR 4.2, hgb 9.9 Hyperlipidemia LDL goal < 100 12/23/2013 Hypertensive heart and kidney disease with chronic diastolic congestive heart failure and stage 3b chronic kidney disease (HCC) 04/26/2021 Hypothyroidism, postablative 09/24/2013 Intramuscular hematoma 08/02/2021 left leg, [facility] Kidney disease, chronic, stage III (GFR 30-59 ml/min) ([facility]) 07/09/2011 Per CKD protocol #1 LONG-TERM USE OF ANTICOAGULANTS 05/10/2004 MEDICATION USE AGREEMENT 08/29/2017 Migraine with aura, intractable Old myocardial infarct 01/02/2001 Other abnormal glucose 03/13/2005 Postural dizziness with presyncope 12/05/2017 [facility] also burned her arm. GFR 17 Protein calorie malnutrition (HCC) Restless legs syndrome 12/06/2016 RHEUMATIC HEART DISEASE 03/05/2002 Right knee DJD S/P mitral valve replacement 1994 mechanical Shingles 02/13/2014 left thigh Syncope 01/13/2021 [facility] VICKY and dehydration Tachy-sammi syndrome [...] Stability Do you currently live in a skilled nursing or have no steady place to sleep [...] - for ages0-17 years): Not on file O:Blood pressure 134/75, pulse 70, SpO2 97%. GENERAL: alert and no distress NECK: supple, no adenopathy EYES: conjunctiva are pink and non-injected, sclera clear EARS: External ears normal, Canals clear, TM's Normal NOSE: no mucosal erythema, no mucosal edema, no purulent discharge OROPHARYNX: no exudate, no erythema, lips, buccal mucosa, and tongue normal, and mucous membranes are moist HEART: regular rate & rhythm, no murmur, and no gallops LUNGS: chest symmetric with normal AP diameter, no chest deformities noted, no chest wall tenderness, lungs clear to auscultation A:Bronchitis, complicated (Primary) - Amoxicillin-Pot Clavulanate 875-125 MG Oral Tablet (Augmentin); Take 1 Tablet by mouth in the morning and 1 Tablet before bedtime. Do all this for 10 days. Start above med. Rest, fluids. Any questions/problems, please call. If anything changes, worsens, develops new sx, please call [facility]. Follow Up: Return if symptoms worsen or fail to improve. Chastity Kim PA-C documented in this encounter Plan of Treatment Upcoming Encounters Date Type Department Care Team (Late st Contact Info) Description 05/06/2024 7:05 AM EDT Laboratory Lab Mobile Phlebotomy [address] [place] [address] [facility] Mobile Home Draw [address] [place] [address] [place] [address] 05/07/2024 6:00 AM EDT Anticoagulation Centralized Clinical Pharmacy Services, [facility] Yee [address] [place] [address] [place] [address] [facility], [address] [place] [address] 05/07/2024 11:30 AM EDT [facility], [facility] [address] [place] [address] Valentina Laws RN [address] [place] [address] 05/15/2024 3:00 PM EDT Office Visit Gastroenterology, [place] [address] [place] [address] Cat Kenny PA-C [address] [place] [address] 05/21/2024 1:30 PM EDT Office Visit Cardiology, [facility] [address] [place] [address] Hadley Molina MD [address] [place] [address] 06/23/2024 2:00 PM EDT Office Visit Hematology/Oncology [facility] [address] [place] [address] Bouchra Del Cid CRNP [address] [facility] [place] [address] 06/24/2024 1:40 PM EDT Office Visit Family [address] [place] [address] Shara Ray MD [address] [place] [address] [place] [address] 07/15/2024 2:00 PM EDT Office Visit Cardiology, [facility] [address] [place] [facility] [place] [address] Maria Ines Bowers CRNP [address] [facility] [place] [address] 08/20/2024 3:00 PM EDT Office Visit Nephrology [address] [place] [address] Aliyah Lacey MD [address] [place] [address] 01/08/2025 2:00 PM EST Office Visit Family Medicine [address] [place] [address] Shara Ray MD [address] [place] [address] [place] [address] 03/01/2025 2:40 PM EST Office Visit Nephrology [address] [place] [address] Aliyah Lacey MD [address] [place] [address] Scheduled Procedures Name Priority Associated Diagnoses Date/Ti [...] Additional history exists CKD PHOS USE SMARTSET 71306 03/23/2025 02/0 04/2024, 03/22/2024, 03/21/2024, Additional history exists CKD HGB USE SMARTSET 35449 03/25/202503/25, 03/23/2024, 03/22/2024, Additional history exists DTap/Tdap [...] this encounter Medical Devices Implanted Type Area Driver Wheelchair Device Identifier Shelf Expiration Date Model / Serial / Lot [place] Suture Biocomposite - Sn/A - [id number] Implanted:Qty: 2 on 12/13/2021 by Moris Jimenez, DO at OR [facility] Left: Leg Lower [employer] 07/18/2024 [id number] / N/A / [id number] Vitoss Bbtrauma Foam Pack - [id number] - [id number] Implanted:Qty: 1 on 12/13/2021 by Moris Jimenez, DO at OR [facility] Left: Leg Lower MICHA : TRAUMA 01/15/[id number] / [id number] / [id number] System Delivery Triclip Xtw - [id number] Implanted:Qty: 1 on 03/18/2024 [place] [facility] [employer] 08/11/2025 [id number] / / documented as of this [...] fibrillation (HCC) Generalized anxiety disorder Atherosclerosis of [place] coronary artery without angina pectoris, unspecified whether [place] or transplanted heart Hypothyroidism, postablative Other postablative [...] Advance Directives occurred with: Patient Care Teams Director Digital Marketing Relationship Specialty Start Date End Date Shara Ray MD [address] [place] [address] [place] [address] PCP - General Family Medicine 12/30/23 documented as of this encounter
--- OUTSIDE RECORDS SUMMARY | 2024-05-12 09:09 | External Medical Summary | Summary of Care ---
Author Name Unknown Organization [facility] Address [address] [place] [address] Phone [phone] Care Team Providers Care Farm Operations Manager Name Role Phone Shara Ray MD Primary Care Provide r Encounter Details Date Type Department Care Team ([facility] st Contact Info) Description 04/30/2024 Result Scan Unspecified Department Naomi Vila, DO [address] [facility] [place] [address] <No scans attached> Allergies Active Allergy Reactions [...] as of this encounter (statuses as of 05/01/2024) Medications acetaminophen (TYLENOL) 500 MG Tablet Take [...] needed 50 mL 12/07/19 23 Active Nystatin 548354 UNIT/ML Mouth/Throat SuspensionIndicati ons:Thrush Swish and swallow [...] long-term current use of insulin ([facility]) Check your glucose daily as [...] for Shortness Of Breath 12 g 2 02/05/2024 7:35 AM EST 11/04/19 24 Active Metoclopramide HCl 10 MG Oral Tablet (Reglan)Indication s:Nausea TAKE ONE TABLET BY MOUTH EVERY MORNING 30 MINUTES BEFORE A MEAL 100 Tablet 1 02/24/2024 6:15 AM EST 11/12/19 24 09/24/2 025 Active Rosuvastatin Calcium 10 MG Oral [...] as of this encounter (statuses as of 05/01/2024) Active Problems Problem Noted Date Diagnosed Date S/P tricuspid valve repair 04/09/2024 Hypothyroidism 04/09/2024 Hyperparathyroidism 04/09/2024 Moderate tricuspid regurgitation 03/23/2024 Esophageal dysmotility 03/23/2024 Chronic right-sided heart failure 03/20/2024 Atherosclerosis of [place] co ronary artery of [place] heart without angina pectoris 04/03/2023 Major depressive [...] leg, left, subsequent encounter 09/2021 Overview (12/05/2021): [facility] ER ulstrasound shows hematoma calf, [...] Comments) Remote Patient Monitoring [place] [facility] Device(s): Connected Scale Self - Management Plan [...] mg mon, wed, fri. 80 mg , th, sat, sun Spironolactone 12.5 mg daily Assessment & Plan (07/10/2021 12:27 PM EDT): [facility] Call: I would have her do [...] and amiodarone. On warfarin being managed by [facility] pharmacy. History of TIA (transient [...] PM EST): Symptoms well controlled on omeprazole watermaster current use of anticoagulant therapy 0 05/10/2004 [...] as of this encounter (statuses as of 05/01/2024) Resolved Problems Problem Noted Date Diagnosed Date [...] IM/IV Chest Xray Additional Comments: Followed by lighting engineering technician - Dr. Rashel Sales [facility] Assessment & Plan (12/07/2022 2:00 [...] 40mg IM/IV CBC Chest Xray Followed by lighting engineering technician - Dr. Rashel Sales [facility] Complicated UTI (urinary tract infection) [...] (07/12/2011): Per CKD protocol #1 [employer] Other*[id number] 06/02/2010 04/18/2011 Overview (06/02/2010): PROJECT: #[id number], SPONSOR: Aileen, PI: Adolfo De Jesus MD [...] can be closed. CONTACT: Roberto Carlos Huertas, Tool Grinder Operator Type 2 diabetes mellitus wit h hemoglobin A1c goal of less than 7.0% 04/24/2010 08/29/2018 Overview (06/14/2015): ICD-10 update of inactive term ACTIVE CASE MANAGEMENT Kassie Anthony, RN [phone] 05/10/1912/05/2009 ADVANCE DIRECTIVE INFORMATION [...] as of this encounter (statuses as of 05/01/2024) Immunizations Name Administration Dates Next Due COVID-19 mRNA, LNP-s, No Pre serve, 2-Dose Series (Moderna) 04/19/2020,03/22/2020 COVID-19, MRNA-LNP, PF, 30 M CG/0.3 mL, 12 YRS AND ABOVE, IM ([facility] 12/03/2022 COVID-19, mRNA, LNP-s, PF, B ooster, [...] Date Author Yes 03/13/2024 3:44 PM Maury Thacker, RN documented in this encounter Plan of Treatment Upcoming Encounters Date Type Department Care Team (Late st Contact Info) Description 05/01/2024 6:45 AM EDT Anticoagulation Centralized Clinical Pharmacy Services, [facility] Joselito [address] [place] [address] [place] [address] [facility], [address] [place] [address] 05/07/2024 11:30 AM EDT [facility], [facility] [address] [place] [address] Valentina Laws, TANISHA [address] [facility] [place] [address] 05/15/2024 3:00 PM EDT Office Visit Gastroenterology, [place] [address] [place] [address] Cat Kenny PA-C [address] [place] [address] 05/21/2024 1:30 PM EDT Office Visit Cardiology, [facility] [address] [facility] [place] [address] Hadley Molina MD 132 [facility] [place] [address] 06/23/2024 2:00 PM EDT Office Visit Hematology/Oncology [facility] [address] [facility] [place] [address] Bouchra Del Cid CRNP [address] [facility] [place] [address] 06/24/2024 1:40 PM EDT Office Visit Family Medicine [address] [address] Shara Ray MD [address] [place] [address] [place] [address] 07/15/2024 2:00 PM EDT Office Visit Cardiology, [facility] [address] [place] [address] Maria Ines Bowers CRNP [address] [place] [address] 08/20/2024 3:00 PM EDT Office Visit Nephrology [address] [place] [address] Aliyah Lacey MD [address] [place], [place] [address] 01/08/2025 2:00 PM EST Office Visit Family Medicine [address] [place] [address] Shara Ray MD [address] [place] [address] [place] [address] 03/01/2025 2:40 PM EST Office Visit Nephrology [address] [place] [address] Aliyah Lacey MD [address] [place], [place] [address] Scheduled Procedures Name Priority Associated Diagnoses Date/Ti [...] Additional history exists CKD PHOS USE SMARTSET 98086 03/23/2025 02/0 04/2024, 03/22/2024, 03/21/2024, Additional history exists CKD HGB USE SMARTSET 74795 03/25/202503/25, 03/23/2024, 03/22/2024, Additional history exists DTap/Tdap [...] this encounter Medical Devices Implanted Type Area Credit Card Clerk Device Identifier Shelf Expiration Date Model / Serial / Lot [place] Suture Biocomposite - Sn/A - [id number] Implanted:Qty: 2 on 12/13/2021 by Moris Jimenez, DO at OR [facility] Left: Leg Lower [employer] 07/18/2024 [id number] / N/A / [id number] Vitoss Bbtrauma Foam Pack - [id number] - [id number] Implanted:Qty: 1 on 12/13/2021 by Moris Jimenez, DO at OR [facility] Left: Leg Lower MICHA : TRAUMA 01/15/20228540-5502 / [id number] / [id number] System Delivery Triclip Xtw - [id number] Implanted:Qty: 1 on 03/18/2024 at [facility] [employer] 08/11/2025 [id number] / / documented as of this encounter Procedures Procedure Name Priority Date/Time Associated Diagnosis Comments CARDIOLOGY SCANNED RESULT 04/30/2024 documented in this encounter Results * CARDIOLOGY SCANNED RESULT (04/30/2024) 04/30/2024 Naomi Vila DO OTHER Final R esult documented in this encounter Advance Directives * [...] Advance Directives occurred with: Patient Care Teams Farm Operations Manager Relationship Specialty Start Date End Date Shara Ray MD [address] [place] [address] [place] [address] PCP - General Family Medicine 12/30/23 documented as of this encounter
--- OUTSIDE RECORDS SUMMARY | 2024-05-12 09:09 | External Medical Summary | Summary of Care ---
Author Name Unknown Organization [facility] [address] [address] Phone [phone] Care Team Providers Care Methane Gas Collection System Operator Name Role Phone Shara Ray MD Primary Care Provide r Reason for Visit * Reason Comments Dosage Adjustment Via Phone (anticoag Cl inic) Encounter Details Date Type Department Care Team (Late st Contact Info) Description 05/01/2024 6:45 AM EDT Anticoagulation Centralized Clinical Pharmacy Services, [address] [place] [id number] [place] [address] [facility] current use of [...] needed 50 mL 12/07/19 23 Active Nystatin 060362 UNIT/ML Mouth/Throat SuspensionIndicati ons:Thrush Swish and swallow [...] disease, without long-term current use of insulin ([facility]) Check your glucose daily as needed 1 Kit 07/25/19 Active LancetsIndications :Type 2 diabetes mellitus with stage 3b chronic kidney disease, without long-term current use of insulin ([facility]) Use as directed. 100 Each 11 07/25/19 Active Glucose Blood In Vitro StripIndications:T ype 2 diabetes mellitus with stage 3b chronic kidney disease, without long-term current use of insulin ([facility]) Use as directed. 100 Strip [...] Tablet 1 04/30/2024 1:51 PM EDT 04/28/19 Active Potassium Chloride Jodie ER 10 MEQ [...] Chronic right-sided heart failure 03/20/2024 Atherosclerosis of [place] co ronary artery of [place] heart without angina pectoris 04/03/2023 Major depressive [...] leg, left, subsequent encounter 09/2021 Overview (12/05/2021): [facility] ER [...] the Comments) Remote Patient Monitoring Vendor: [facility] Device(s): Connected Scale Self - Management Plan [...] Assessment & Plan (07/10/2021 12:27 PM EDT): [facility] Call: I would have her [...] and amiodarone. On warfarin being managed by [facility] pharmacy. 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 Rashel Sales [facility] Assessment & Plan (12/07/2022 2:00 PM EDT): [...] 40mg IM/IV CBC Chest Xray Followed by problem manager - Dr. Rashel Sales [facility] Complicated UTI (urinary tract infection) 12/20/2021 05/17/2022 [...] (07/12/2011): Per CKD protocol #1 [employer] Other*[id number] 06/02/2010 04/18/2011 Overview (06/02/2010): PROJECT: #[id number], SPONSOR: Aileen, PI: Adolfo De Jesus MD [...] can be closed. CONTACT: Roberto Carlos Huertas, Iron Molder Helper Type 2 diabetes mellitus wit h [...] CG/0.3 mL, 12 YRS AND ABOVE, IM ([employer]-Comirnaty) 12/03/2022 COVID-19, mRNA, LNP-s, PF, B ooster, [...] documented in this encounter Progress Notes * Silvia Ware RPh - 05/01/2024 10:49 AM EDT Medication Therapy Disease Management - Anticoagulation Patient: Abdi Bowling | : 1955 Subjective Contacts Contact Date/Time Type Contact Phone/Fax 05/01/2024 04:46 AM EDT Email SMS () [phone] Patient not accepting updates 05/01/2024 01:34 PM EDT Phone (Outgoing) Abdi Bowling (Self) [phone] (M) Patient-Reported Symptoms: Patient Findings Positives: Emergency department visit ([facility] 04/29/24 - cough & SOB secondary to acute bronchitis with rhinovirus), Change in medications (Prednisone 20 mg x 5 days, metoprolol dosing adjusted) Objective Current Warfarin Dose As of 05/01/2024 Warfarin maintenance plan: 7.5 mg (2.5 mg x 3) every Mon; 5 mg (2.5 mg x 2) all other days INR Result As of 05/01/2024 INR goal: 3.0-3.5 INR used for dosin.0 (04/29/2024) Assessment & Plan Warfarin Plan As of 05/01/2024 Full warfarin instructions: 7.5 mg every Mon; 5 mg all other days No change documented: Silvia Ware RPh Next INR check: 05/06/2024 Repeat PT/INR in 1 week(s) Weekly dose: not changed Additional Dosing Information: Description GML WedFri, prefers Wed ([facility], [facility], or [facility]) Please also send myG message Silvia Ware RPh Clinical Pharmacist 05/01/2024, 10:53 AM documented in this encounter Plan of Treatment Upcoming Encounters Date Type Department Care Team (Late st Contact Info) Description 05/07/2024 6:00 AM EDT Anticoagulation Centralized Clinical Pharmacy Services, Denia Yee [address] [place] [address] [place] [address] [facility], [address] [place] [address] 05/07/2024 11:30 AM EDT [facility], [facility] [address] [place] [address] Valentina Laws RN [address] [place] [address] 05/15/2024 3:00 PM EDT Office Visit Gastroenterology, [place] [address] [place] [address] Cat Kenny PA-C [address] [place] [address] 05/21/2024 1:30 PM EDT Office Visit Cardiology, [facility] [address] [place] [address] Hadley Molina MD [address] [place] [address] 06/23/2024 2:00 PM EDT Office Visit Hematology/Oncology [facility] [address] [place] [phone] Bouchra Del Cid CRNP 400 [facility] [place] [address] 06/24/2024 1:40 PM EDT Office Visit Family Medicine [address] [place] [phone] Shara Ray MD [address] [place] [address] [place] [address] 07/15/2024 2:00 PM EDT Office Visit Cardiology, [facility] [address] [place] [address] Maria Ines Bowers CRNP [address] [place] [address] 08/20/2024 3:00 PM EDT Office Visit Nephrology [address] [place] [address] Aliyah Lacey MD [address] [place] [address] 01/08/2025 2:00 PM EST Office Visit Family Medicine [address] [place] [phone] Shara Ray MD [address] [place] [address] [place] [address] 03/01/2025 2:40 PM EST Office Visit Nephrology [address] [place] [address] Aliyah Lacey MD [address] [place] [address] Scheduled Procedures Name Priority Associated Diagnoses Date/Ti [...] Additional history exists CKD PHOS USE SMARTSET 22928 03/23/2025 02/0 04/2024, 03/22/2024, 03/21/2024, Additional history exists CKD HGB USE SMARTSET 05614 03/25/202503/25, 03/23/2024, 03/22/2024, Additional history exists DTap/Tdap [...] this encounter Medical Devices Implanted Type Area Special Forces Engineer Sergeant Device Identifier Shelf Expiration Date Model / Serial / Lot [place] Suture Biocomposite - Sn/A - [id number] Implanted:Qty: 2 on 12/13/2021 by Moris Jimenez DO at OR [facility] Left: Leg Lower [employer] 07/18/2024 [id number] / N/A / [id number] Vitoss Bbtrauma Foam Pack - [id number] - [id number] Implanted:Qty: 1 on 12/13/2021 by Moris Jimenez DO at OR [facility] Left: Leg Lower MICHA : TRAUMA 01/15/2022 [id number] / [id number] / [id number] System Delivery Triclip Xtw - [id number] Implanted:Qty: 1 on 03/18/2024 at [facility] [employer] 08/11/2025 [id number] / / documented as of this encounter Procedures Procedure Name Priority Date/Time Associated Diagnosis Comments OUTSIDE LAB-PT/INR Routine 04/29/2024 documented in this encounter Results * OUTSIDE LAB-PT/INR (04/29/2024) INR-OUTSIDE LAB 3.0 [facility] 04/29/2024 us History Per Patient LABORATORY Final Result [address] [place] [address] documented in this encounter Visit Diagnoses Diagnosis [...] COPD, group B, by GOLD 2017 classification ([facility]) Gastroesophageal reflux disease with esophagitis [...] COPD, group B, by GOLD 2017 classification ([facility]) Major depressive disorder, recurrent, moderate (HCC) Major depressive disorder, recurrent episode, moderate Other persistent atrial fibrillation (HCC) Generalized anxiety disorder Atherosclerosis of [place] coronary artery without angina pectoris, unspecified whether [place] or transplanted heart Hypothyroidism, postablative Other postablative hypothyroidism Dyslipidemia, goal LDL below 100 Other and unspecified hyperlipidemia [facility] current use of [...] Advance Directives occurred with: Patient Care Teams Methane Gas Collection System Operator Relationship Specialty Start Date End Date Shara Ray MD [address] [place] [address] [place] [address] PCP - General Family Medicine 12/30/23 documented as of this encounter
--- OUTSIDE RECORDS SUMMARY | 2024-05-12 09:10 | External Medical Summary | Summary of Care ---
Author Name Unknown Organization [facility] Address [address] [facility] [place] [address] Phone [phone] Care Team Providers Care Before School Name Role Phone Shara Ray MD Primary Care Provide r Reason for Visit * Reason Comments Dosage Adjustment Via Phone (anticoag Cl inic) Encounter Details Date Type Department Care Team (Late st Contact Info) Description 04/30/2024 6:00 AM EDT Anticoagulation Centralized Clinical Pharmacy Services, [address] [place] [address] [place] [address] snf current use of anticoagulant therapy* Allergies Active Allergy Reactions Criticality Noted [...] as of this encounter (statuses as of 04/30/2024) Medications acetaminophen (TYLENOL) 500 MG Tablet Take [...] needed 50 mL 12/07/19 23 Active Nystatin 722350 UNIT/ML Mouth/Throat SuspensionIndicati ons:Thrush Swish and swallow [...] disease, without long-term current use of insulin ([facility]) Use as directed. 100 Strip 11 07/25/19 [...] in the morning. 90 Tablet 3 04/23/19 Active Potassium Chloride Jodie ER 10 MEQ Oral Tablet Extended Release Take 2 Tablets by mouth in the morning and 2 Tablets before bedtime. 540 Tablet 3 04/23/19 Active Benzonatate 100 MG Oral CapsuleIndications :Cough Take 1 Capsule by mouth 3 times a day as needed for Cough. 30 Capsule 1 04/24/19 Active Levothyroxine Sodium 100 MCG Oral Tablet (Levoxyl)Indicatio ns:Hypothyroidism, postablative TAKE ONE TABLET by MOUTH DAILY FIRST THING IN THE MORNING AT LEAST 30 MINUTES PRIOR TO BREAKFAST OR OTHER MEDS 100 Tablet 1 04/28/19 Active documented as of this encounter (statuses as of 04/30/2024) Active Problems Problem Noted Date Diagnosed Date S/P tricuspid valve repair 04/09/2024 Hypothyroidism 04/09/2024 Hyperparathyroidism 04/09/2024 Moderate tricuspid regurgitation 03/23/2024 Esophageal dysmotility 03/23/2024 Chronic right-sided heart failure 03/20/2024 Atherosclerosis of [place] co ronary artery of [place] heart without angina pectoris 04/03/2023 Major depressive [...] leg, left, subsequent encounter 09/2021 Overview (12/05/2021): [facility] ER ulstrasound shows hematoma [...] Assessment & Plan (07/10/2021 12:27 PM EDT): [facility] Call: I would have her [...] and amiodarone. On warfarin being managed by [facility] pharmacy. History of TIA (transient ischemic [...] PM EST): Symptoms well controlled on omeprazole snf current [...] as of this encounter (statuses as of 04/30/2024) Resolved Problems Problem Noted Date Diagnosed Date [...] IM/IV Chest Xray Additional Comments: Followed by air brush artist - Dr. Rashel Sales [facility] Assessment & Plan (12/07/2022 2:00 PM [...] 40mg IM/IV CBC Chest Xray Followed by air brush artist - Dr. Rashel Sales [facility] Complicated UTI (urinary tract infection) 12/20/2021 [...] (07/12/2011): Per CKD protocol #1 [employer] Other*[id number] 06/02/2010 04/18/2011 Overview (06/02/2010): PROJECT: #[id number], SPONSOR: Aileen, PI: Adolfo De Jesus MD [...] can be closed. CONTACT: Roberto Carlos Huertas, Human Resources Manager Type 2 diabetes mellitus wit h [...] as of this encounter (statuses as of 04/30/2024) Immunizations Name Administration Dates Next Due COVID-19 mRNA, LNP-s, No Pre serve, 2-Dose Series (Moderna) 04/19/2020,03/22/2020 COVID-19, MRNA-LNP, PF, 30 M CG/0.3 mL, 12 YRS AND ABOVE, IM ([employer]-Comirnaty) [...] Entry Date Author Yes 03/13/2024 3:44 PM EST Maury Vasquez RN documented in this encounter Progress Notes * Araceli Foster RPh - 04/30/2024 10:42 AM EDT Noted. [facility] will follow up to confirm if patient went to ED/being admitted and reschedule labs. Currently no information in [facility] portal. Thank you, Araceli Foster PharmD Clinical Pharmacist Centralized Clinical Pharmacy Services ([facility]) 04/30/2024 10:43 AM * Brianna Zapata PHARM Tech - 04/29/2024 3:36 PM EDT It appears pt's GML appointment was cancelled because pt was going to the ED. Please advise. Thank you, Brianna Zapata Miscellaneous Machine Operator Centralized Clinical Pharmacy Services ([facility]) 04/29/2024, 3:36 PM documented in this encounter Plan of Treatment Upcoming Encounters Date Type Department Care Team (Late st Contact Info) Description 05/01/2024 6:45 AM EDT Anticoagulation Centralized Clinical Pharmacy Services, [address] [place] [address] [place] [address] 05/07/2024 11:30 AM EDT [facility], [facility] [address] [place] [address] Valentina Laws, TANISHA [address] [place] [address] 05/15/2024 3:00 PM EDT Office Visit Gastroenterology, [address] [place] [address] Cat Kenny PA-C [address] [place] [address] 05/21/2024 1:30 PM EDT Office Visit Cardiology, [facility] [place] [address] Hadley Molina MD 132 [facility] [place] [address] 06/23/2024 2:00 PM EDT Office Visit Hematology/Oncology [facility] [place] 200 [facility] [place] [phone] Bouchra Del Cid CRNP 400 [facility] [place] [address] 06/24/2024 1:40 PM EDT Office Visit Family Medicine [address] [phone] Shara Ray MD [address] [place] [address] [place] [address] 07/15/2024 2:00 PM EDT Office Visit Cardiology, [facility] 132 [facility] [place] [address] Maria Ines Bowers CRNP 132 [facility] [place] [address] 08/20/2024 3:00 PM EDT Office Visit Nephrology [address] [place] [address] Aliyah Lacey MD 200 [facility] [place] [address] 01/08/2025 2:00 PM EST Office Visit Family Medicine [address] [phone] Shara Ray MD [address] [place] [address] [place] [address] 03/01/2025 2:40 PM EST Office Visit Nephrology [address] [place] [address] Aliyah Lacey MD [address] [place] [address] Scheduled Procedures Name Priority Associated Diagnoses Date/Ti [...] Additional history exists CKD PHOS USE SMARTSET 97370 03/23/2025 02/0 04/2024, 03/22/2024, 03/21/2024, Additional history exists CKD HGB USE SMARTSET 12553 03/25/202503/25, 03/23/2024, 03/22/2024, Additional history exists DTap/Tdap [...] this encounter Medical Devices Implanted Type Area Business Liaison Manager Device Identifier Shelf Expiration Date Model / Serial / Lot [place] Suture Biocomposite - Sn/A - [id number] Implanted:Qty: 2 on 12/13/2021 by Moris Jimenez, DO at OR [facility] Left: Leg Lower [employer] 07/18/2024 [id number] / N/A / [id number] Vitoss Bbtrauma Foam Pack - [id number] - [id number] Implanted:Qty: 1 on 12/13/2021 by Moris Jimenez, DO at OR [facility] Left: Leg Lower MICHA : TRAUMA 01/15/[id number] / [id number] / [id number] System Delivery Triclip Xtw - [id number] Implanted:Qty: 1 on 03/18/2024 at [facility] 08/11/2025 [id number] / / documented as of this [...] disease, without long-term current use of insulin ([facility]) Hypothyroidism, postablative Other postablative hypothyroidism Generalized anxiety disorder Permanent atrial fibrillation (HCC)- Primary Atrial fibrillation Type 2 diabetes mellitus with stage 3b chronic kidney disease, without long-term current use of insulin ([facility]) Hypertensive heart and kidney disease with chronic diastolic congestive heart failure and stage 3b chronic kidney disease (HCC) COPD, group B, by GOLD 2017 classification ([facility]) Gastroesophageal reflux disease with esophagitis without hemorrhage Hypothyroidism, postablative Other postablative hypothyroidism Dyslipidemia, goal LDL below 100 Other and unspecified hyperlipidemia Restless legs syndrome Restless legs syndrome (RLS) Iron deficiency anemia, unspecified iron deficiency anemia type Hypertensive heart and kidney disease with chronic diastolic congestive heart failure and stage 3b chronic kidney disease (HCC)- Primary COPD, group B, by GOLD 2017 classification ([facility]) Major depressive disorder, recurrent, moderate (HCC) Major depressive disorder, recurrent episode, moderate Other persistent atrial fibrillation (HCC) Generalized anxiety disorder Atherosclerosis of [place] coronary artery without angina pectoris, unspecified whether [place] or transplanted heart Hypothyroidism, postablative Other postablative hypothyroidism Dyslipidemia, goal LDL below 100 Other and unspecified hyperlipidemia 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
--- OUTSIDE RECORDS SUMMARY | 2024-05-12 09:10 | External Medical Summary | Summary of Care ---
Author Name Unknown Organization [facility] Address [address] [facility] [place] [address] Phone [phone] Care Team Providers Care Anime Designer Name Role Phone Shara Ray MD Primary Care Provide r Reason for Visit * Reason Onset Date Comments [facility]: Acute 04/29/2024 Encounter Details Date Type Department Care Team (Late st Contact Info) Description 04/29/2024 Telephone [facility], [facility] [address] [facility] [place] [address] Renee Eden, TANISHA [address] [facility] [place] [address] [facility]: Acute Allergies Active Allergy Reactions Criticality Noted Date [...] as of this encounter (statuses as of 04/29/2024) Medications acetaminophen (TYLENOL) 500 MG Tablet Take [...] needed 50 mL 12/07/19 23 Active Nystatin 541264 UNIT/ML Mouth/Throat SuspensionIndicati ons:Thrush Swish and swallow [...] (HCC) Use as directed. 100 Strip 07/25/19 24 [...] morning. 90 Tablet 3 04/23/19 25 Active Potassium Chloride Jodie ER 10 MEQ Oral Tablet Extended Release Take 2 Tablets by mouth in the morning and 2 Tablets before bedtime. 540 Tablet 3 04/23/19 25 Active Benzonatate 100 [...] OR OTHER MEDS 100 Tablet 1 04/28/19 25 Active documented as of this encounter (statuses as of 04/29/2024) Active Problems Problem Noted Date Diagnosed Date S/P tricuspid valve repair 04/09/2024 Hypothyroidism 04/09/2024 Hyperparathyroidism 04/09/2024 Moderate tricuspid regurgitation 03/23/2024 Esophageal dysmotility 03/23/2024 Chronic right-sided heart failure 03/20/2024 Atherosclerosis of [place] ronary artery of [place] heart without angina pectoris 04/03/2023 Major depressive [...] 09/2021 Overview (12/05/2021): [facility] ER [...] in the Comments) Remote Patient Monitoring Vendor: [facility] Device(s): Connected Scale Self - [...] Assessment & Plan (07/10/2021 12:27 PM EDT): [facility] Call: I would have [...] and amiodarone. On warfarin being managed by [facility] pharmacy. 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 Rashel Sales [facility] Assessment & Plan (12/07/2022 2:00 PM EDT): [...] 40mg IM/IV CBC Chest Xray Followed by sql analyst - Dr. Rashel Sales [facility] Complicated UTI (urinary tract infection) 12/20/2021 05/17/2022 [...] (07/12/2011): Per CKD protocol #1 [employer] Other*[id number] 06/02/2010 04/18/2011 Overview (06/02/2010): PROJECT: #[id number], SPONSOR: [employer], PI: Adolfo De Jesus MD [...] can be closed. CONTACT: Roberto Carlos Huertas, Bandage Wrapping Machine Operator Type 2 diabetes mellitus wit [...] as of this encounter (statuses as of 04/29/2024) Immunizations Name Administration Dates Next Due COVID-19 mRNA, LNP-s, No Pre serve, 2-Dose Series (Moderna) 04/19/2020,03/22/2020 COVID-19, MRNA-LNP, PF, 30 M CG/0.3 mL, 12 YRS AND ABOVE, IM [facility] 12/03/2022 COVID-19, mRNA, LNP-s, PF, B ooster, [...] Maury Vasquez RN documented in this encounter Miscellaneous Notes * Telephone Encounter - Renee Eden RN - 04/29/2024 9:31 AM EDT Incoming call from caregiver Moris Kendrick's , a doctor, heard expiratory rales in Abdi's chest last night, and Moris heard them himself this morning. They call EMS, she is being taken to [facility] ED Aware I will make her care team aware, thanked him for the call Renee Eden, RN, BSN sales performance managerEmergency Room Physician Assistant [phone] option #1 documented in this encounter Plan of Treatment Upcoming Encounters Date Type Department Care Team (Late st Contact Info) Description 04/30/2024 6:00 AM EDT Anticoagulation [facility], [address] [place] [address] [facility], [address] [place] [address] 05/07/2024 11:30 AM EDT [facility], [facility] [address] [facility] [place] [address] Valentina Laws RN [address] [facility] [place] [address] 05/15/2024 3:00 PM EDT Office Visit Gastroenterology, [place] [address] [facility] [place] [address] Cat Kenny PA-C [address] [facility] [address] 05/21/2024 1:30 PM EDT Office Visit Cardiology, [facility] [address] [facility] [place] [address] Hadley Molina MD [address] [place] [address] 06/23/2024 2:00 PM EDT Office Visit Hematology/Oncology [facility] [address] [facility] [place], [place] [phone] Bouchra Del Cid CRNP [address] [facility] [place] [address] 06/24/2024 1:40 PM EDT Office Visit Family Medicine [address] [place] [phone] Shara Ray MD [address] [place] [address] [place] [address] 07/15/2024 2:00 PM EDT Office Visit Cardiology, [facility] [address] [place] [address] Maria Ines Bowers CRNP [address] [place] [address] 08/20/2024 3:00 PM EDT Office Visit Nephrology [address] [place] [address] Aliyah Lacey MD [address] [facility] [place], [place] [address] 01/08/2025 2:00 PM EST Office Visit Family Medicine [address] [place] [phone] Shara Ray MD [address] [place] [address] [place] [address] 03/01/2025 2:40 PM EST Office Visit Nephrology [address] [place] [address] Aliyah Lacey MD [address] [facility] [place] [address] Scheduled Procedures Name Priority Associated Diagnoses Date/Ti [...] 07/30/2022, 0 09/02/2019, 08/29/2018, Additional history exists COVID-19 Vaccine ( season) 2023 12/03/2022, 11/29/2021, 03/14/2021, Additional history exists TSH 06/06/2024 06/07/2023, 05/19, 06/28/2021, Additional history exists HbA1c 09/11/2024 03/14/2024, 07/19, 04/24/2023, Additional history exists Albumin/Creatinine Ratio 09/25/2024 024, 05/07/2023, 12/03/2022, Additional history exists GFR 10/23/2024 04/22/2024, 03/22, 04/09/2024, Additional history exists Depression Monitoring 10/27/2024 10/28/2023 Mammogram 11/26/2024 11/27/2023, 10/20, 11/15/2022, Additional history exists CKD PHOS USE SMARTSET 09527 03/23/2025 02/0 04/2024, 03/22/2024, 03/21/2024, Additional history exists CKD HGB USE SMARTSET 26570 03/25/202503/25, 03/23/2024, 03/22/2024, Additional history exists DTap/Tdap [...] this encounter Medical Devices Implanted Type Area Clinical Unit Educator Device Identifier Shelf Expiration Date Model / Serial / Lot [place] Suture Biocomposite - Sn/A - [id number] Implanted:Qty: 2 on 12/13/2021 by Moris Jimenez DO at OR [facility] Left: Leg Lower [employer] 07/18/2024 [id number] / N/A / [id number] [employer]oss Bbtrauma Foam Pack - [id number] - [id number] Implanted:Qty: 1 on 12/13/2021 by Moris Jimenez DO at OR [facility] Left: Leg Lower MICHA : TRAUMA 01/15/20224301-6279 / [id number] / [id number] System Delivery Triclip Xtw - [id number] Implanted:Qty: 1 on 03/18/2024 at [facility] [employer] 08/11/2025 [id number] / / documented as of this [...] Advance Directives occurred with: Patient Care Teams Anime Designer Relationship Specialty Start Date End Date Shara Ray MD [address] [place] [address] [place] [address] PCP - General Family Medicine 12/30/23 documented as of this encounter
--- NOTE | 2024-05-12 09:17 | Cardiology Consultation ---
Date of Consultation May 12, 2024 History of Present Illness Reason for Consultation: CP Requesting Physician: Dilma dinhist Attending Physician: Michael Tinajero MD History of Present Illness HPI: Patient is a 68 year old female with a complex medical history as noted below that presents to the ER with acute complaints of substernal chest pain radiating to her jaw last night. No improvement with use of SL NTG and her prescribed nebulizers and therefore called EMS. Received Fentanyl with some improvement in her symptoms. Creatine 2.16 which has been around patient's baseline High sensitivity troponin with mild elevation 17.7//5/20.6 EKG shows A-fib, incomplete right BBB, left anterior fascicular block. ST depression in lateral leads. Rate 80bpm 1. Chronic HFpEF, NYHA IV 2. 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 Severe tricuspid insufficiency s/p Triclip on 03/18/2024 with successful percutaneous placement of one Triclip XTW device to the anterior and septal leaflet which reduced TR from 5+ to 3+, unable to grasp septal and posterior leaflet. a. Status post tricuspid valve clip implantation (03/18/24) 4. Rheumatic heart disease a. Status post mechanical mitral valve replacement (1993; [employer]) 5. Past embolic myocardial infarction and TIA (on chronic anticoagulation) 6. Type 2 diabetes mellitus (Last HbA1c 6.7%) 7. HLD 8. Status post LINQ insertion (03/31/21) 9. CKD stage IV 10. Chronic iron deficiency anemia on infusion therapy Allergies Allergy/AdvReac Type Severity Reaction Status Date / Time budesonide Allergy Severe could not Verified 05/12/24 04:17 breath hydroxyzine Allergy Severe DYSTONIA Verified 05/12/24 04:17 prochlorperazine Allergy Severe NUCHAL Verified 05/12/24 04:17 DYSTONIA promethazine Allergy Severe NUCHAL Verified 05/12/24 04:17 DYSTONIA enoxaparin [From Lovenox] Allergy Unknown ON Verified 05/12/24 04:17 [facility] L[facility] Inhibitors AdvReac Intermediate COUGH Verified 05/12/24 04:17 gabapentin AdvReac Intermediate CONFUSION/D Verified 05/12/24 04:17 ROWSY lisinopril AdvReac Intermediate Cough Verified 05/12/24 04:17 metformin AdvReac Intermediate DIARRHEA Verified 05/12/24 04:17 oxycodone AdvReac Intermediate NUMB ALL Verified 05/12/24 04:17 OVER parsley AdvReac Intermediate AGITATION Verified 05/12/24 04:17 tetracycline AdvReac Intermediate NAUSEA/VOMI Verified 05/12/24 04:17 TING steroids Allergy Mild Unknown Uncoded 05/12/24 04:17 NAUSEA MEDICINES Allergy Unknown SEE NOTE Uncoded 05/12/24 04:17 BELOW Home Medications Medication Instructions Recorded Confirmed Type cholecalciferol (vitamin D3) 25 1,000 unit PO Q OTHER DAY 12/05/17 05/12/24 His tory mcg (1,000 unit) capsule (Vitamin D3) nitroglycerin 0.4 mg sublingual 0.4 mg sublingual DIRECTED PRN 12/05/17 05/12/24 History tablet (Nitrostat) Chest Pain omeprazole 20 mg capsule,delayed 20 mg PO QAM 12/05/17 05/12/24 History release levothyroxine 100 mcg tablet 100 mcg PO DAILYBB 05/18/18 05/12/24 History folic acid 1 mg tablet 1 mg PO QAM #30 tabs 05/21/18 05/12/24 Rx magnesium hydroxide 400 mg/5 mL 5 ml PO DAILY PRN Constipation 12/31/19 05/12/24 History oral suspension (Milk of Magnesia) spironolactone 25 mg tablet 12.5 mg PO QAM 12/31/19 05/12/24 History rosuvastatin 20 mg tablet 20 mg PO QAM 10/15/20 05/12/24 History citalopram 10 mg tablet 10 mg PO DAILY 07/18/21 05/12/24 History tramadol 50 mg tablet 50 mg PO BID PRN Pain 07/18/21 05/12/24 History azelastine 137 mcg (0.1 %) nasal 2 spray intranasal AMHS 08/02/21 05/12/24 History spray ropinirole 2 mg tablet 2 mg PO TID 09/01/21 05/12/24 History Incentive Spirometer #1 ea 09/05/21 05/12/24 Rx Magnesium Glycinate 665 665 mg PO DAILY 11/30/21 05/12/24 History valacyclovir 1 gram tablet 2,000 mg PO AMPM PRN Cold Sores 11/30/21 05/12/24 History Oxygen Home #1 ea 04/08/23 05/12/24 Rx Oxygen Home #2 ea 05/03/23 05/12/24 Rx acetaminophen 500 mg tablet 500 mg PO Q6H PRN Pain 07/09/23 05/12/24 History (Tylenol Extra Strength) albuterol sulfate 90 mcg/actuation 2 puff inhalation Q4H PRN 07/09/23 05/12/24 History aerosol inhaler COUGH/SHORT OF BREATH/WHEEZING benzonatate 100 mg capsule 100 mg PO TID PRN cough 07/09/23 05/12/24 History buprenorphine 5 mcg/hour weekly 5 mcg transdermal WK 07/09/23 05/12/24 History transdermal patch empagliflozin 10 mg tablet 10 mg PO QAM 07/09/23 05/12/24 History (Jardiance) lidocaine HCl 4 % (40 mg/mL) 1 applic mucous membrane 07/09/23 05/12/24 History mucosal solution DIRECTED PRN MOUTH ULCERS metoclopramide HCl 10 mg tablet 10 mg PO DAILYBB PRN Nausea 07/09/23 05/12/24 History (Reglan) nystatin 100,000 unit/mL oral 5 ml mucous membrane QID PRN THRUSH 07/09/23 05/12/24 History suspension sucralfate 100 mg/mL oral 10 ml PO QID PRN NEEDED 07/09/23 05/12/24 History suspension warfarin 2.5 mg tablet 2.5 mg PO DIRECTED 07/09/23 05/12/24 History metoprolol succinate 50 mg 50 mg PO QAM #30 tabs 07/14/23 05/12/24 Rx tablet,extended release 24 hr torsemide 100 mg tablet 100 mg PO DAILY #30 tabs 07/14/23 05/12/24 Rx ipratropium 20 mcg-albuterol 100 1 puff inhalation QID PRN 11/04/23 05/12/24 Rx mcg/actuation mist for inhalation Shortness Of Breath #12 grams (Combivent Respimat) ipratropium 0.5 mg-albuterol 3 mg 3 ml inhalation QID PRN shortness 05/05/24 05/12/24 Rx (2.5 mg base)/3 mL nebulization of breath or wheezing #1,080 mL soln metoprolol succinate 25 mg 25 mg PO HS 05/12/24 05/12/24 History tablet,extended release 24 hr potassium chloride 10 mEq 20 meq PO BID 05/12/24 05/12/24 History tablet,extended release torsemide 100 mg tablet 50 mg PO HS 05/12/24 05/12/24 History Patient History Medical History A-fib Anemia Anxiety CKD (chronic kidney disease), stage III Diabetes Encounter for pre-operative examination GERD (gastroesophageal reflux disease) History of blood transfusion HTN (hypertension) Hx of myocardial infarction Hyperlipidemia Hypothyroidism Migraines Mitral valve disease Osteoarthritis Restless legs syndrome TIA (transient ischemic attack) Surgical History H/O radioactive iodine thyroid ablation H/O: hysterectomy History of cardiac cath History of colonoscopy History of tonsillectomy and adenoidectomy History of total left knee replacement Hx of appendectomy Hx of cholecystectomy Hx of mitral valve replacement Hx of tubal ligation Family History Uncle , of [place] in his 40s Coronary heart disease Social History Smoking Status: Never smoker Second Hand Exposure: No; Do You Dip or Chew Tobacco: No; Hx Alcohol Use: Yes Alcohol type: wine Hx Substance Use: No Preferred Language: Spanish Communication Ability: Effective Communication Ability Comment: speech impediment, easily understood Optoelectronics Engineer Required: No Beliefs That Will Affect Care: None marital status: Single Current Living Situation: Alone Current Living Situation Comment: from home with adult day care worker. current occupational status: disabled How many Children do You have: 0 Feels Safe at Home: Yes Safety Concerns: Feels Safe At This Time Assistive Devices: Denture - Upper, Denture - Lower, Glasses, Hearing Aid - Bilateral and Walker Results & Data Vital Signs (Past 12 Hours) Vital Signs Temp Pulse Pulse Resp BP BP Pulse Ox 05/12/24 07:30 36.6 C 72 18 124/63 05/12/24 05:40 36.7 C 74 16 107/62 96 05/12/24 04:40 05/12/24 04:30 69 24 118/56 L 95 05/12/24 04:24 79 22 96 05/12/24 04:00 103/63 05/12/24 03:51 76 14 96 05/12/24 03:42 70 22 97 05/12/24 03:30 77 15 95/47 L 95 05/12/24 03:00 79 24 99/55 L 95 05/12/24 02:54 80 24 95 05/12/24 02:45 123/54 L 05/12/24 02:30 101/53 L 05/12/24 02:04 100/58 L 05/12/24 01:51 77 17 97 05/12/24 01:48 99 05/12/24 01:45 75 15 98 05/12/24 01:26 81 05/12/24 01:19 104/60 05/12/24 01:16 99 05/12/24 01:16 36.8 C 78 17 104/60 99 05/12/24 01:16 O2 Del Method O2 Flow Rate 05/12/24 07:30 Room Air 05/12/24 05:40 Room Air 05/12/24 04:40 Nasal Cannula 05/12/24 04:30 Nasal Cannula 2 05/12/24 04:24 05/12/24 04:00 05/12/24 03:51 05/12/24 03:42 05/12/24 03:30 05/12/24 03:00 05/12/24 02:54 05/12/24 02:45 05/12/24 02:30 05/12/24 02:04 05/12/24 01:51 05/12/24 01:48 Nasal Cannula 2 05/12/24 01:45 05/12/24 01:26 05/12/24 01:19 05/12/24 01:16 Nasal Cannula 2 05/12/24 01:16 Nasal Cannula 2 05/12/24 01:16 Nasal Cannula 2 Laboratory Results Cardiac Enzymes 05/12/24 05/12/24 05/12/24 Range/Units 01:46 04:55 08:22 AST 33 (13-39) U/L Troponin I High Sens 17.7 H 26.5 H Cancelled (0-14) pg/ml 05/12/24 Range/Units 08:22 AST (13-39) U/L Troponin I High Sens 20.6 H (0-14) pg/ml Coagulation 05/12/24 Range/Units 01:46 PT 29.1 H (9.0-12.0) Seconds CBC 05/12/24 Range/Units 01:46 WBC 7.52 (4.8-10.8) K/ul RBC 4.53 (4.20-5.40) M/uL Hgb 12.8 (12.0-16.0) g/dl Hct 40.0 (37.0-47.0) % Plt Count 128 L (130-400) K/uL Neut # (Auto) 5.29 (1.40-6.50) K/uL Lymph # (Auto) 1.23 (1.20-3.40) K/uL Marin # (Auto) 0.71 H (0.11-0.59) K/uL Eos # (Auto) 0.22 (0.00-0.50) K/uL Baso # (Auto) 0.04 (0.00-0.20) K/uL Comprehensive Metabolic Panel 05/12/24 Range/Units 01:46 Sodium 134 L (136-145) mmol/L Potassium 4.2 (3.5-5.1) mmol/L Chloride 99 (98-107) mmol/L Carbon Dioxide 29 (21-32) mmol/L BUN 34 H (6-23) mg/dl Creatinine 2.16 H (0.6-1.2) mg/dl Glucose 183 H (70-99(Fasting)) mg/dl Calcium 9.6 (8.6-10.3) mg/dl AST 33 (13-39) U/L ALT 16 (7-52) U/L Alkaline Phosphatase 117 H (34-104) U/L Total Protein 7.4 (6.0-8.3) gm/dl Albumin 4.0 (3.4-5.0) gm/dl Intake and Output 05/11/24 05/12/24 05/12/24 22:59 06:59 14:59 Intake Total 150 / 150 Balance 150 / 150 Intake: IV 150 / 150 Acetaminophen 1,000 mg In 100 100 / 100 ml @ 400 mls/hr IV NOW STA Rx#: [id number] Albumin 25% 12.5 gm In 50 ml @ 50 / 50 50 mls/hr IV ONE ONE Rx#: [id number] Other: # Unmeasured Voids 1 Weight 62.5 kg Weight Measurement Method Standing Scale
[2024-05-12] MEDS: CHECK BUPRENORPHINE PATCH SCH (10:30)
--- NOTE | 2024-05-12 10:46 | Hospitalist Progress Note ---
Date of Service May 12, 2024 Assessment & Plan (1) Chest pain: (2) Elevated troponin: (3) Chronic diastolic CHF (congestive heart failure): (4) Permanent atrial fibrillation: (5) Rheumatic heart disease: (6) H/O mitral valve replacement with mechanical valve: (7) HTN (hypertension): (8) Hyperlipidemia: (9) Diabetes type 2, controlled: (10) COPD (chronic obstructive pulmonary disease): (11) Hypothyroidism: (12) Depression: (13) Restless legs syndrome: (14) Chronic pain: (15) Esophageal dysmotility: Plan 68 year old female with PMH significant for chronic diastolic heart failure (EF 60% April 2024), permanent A fib, severe TR status post recent Triclip procedure (Feb 2024), s/p LOOP (Mar 2021), rheumatic heart disease s/p mechanical MVR (1993) on Coumadin, HTN, HLD, DMII, CKD III (BL creat 1.6-1.7), COPD, hypothyroidism, depression/anxiety, RLS, chronic pain, and esophageal dysmotility who presented to the ED early this morning with substernal chest pain radiating to her jaw. Chest pain, mild troponin elevation, possible ACS -Chest pain improved after Fentanyl administration by EMS -Not currently having chest pain and hemodynamically stable -Troponin 17.7, 26.5, 20.6, 18.5 -Echo done this am and unchanged from previous echo in June 2023 -Cardiology consult Chronic diastolic heart failure Permanent Afib HTN, HLD Follows with Cardiology Continue metoprolol, rosuvastatin Holding warfarin, torsemide, aldactone DMII Sliding scale insulin Holding Jardiance CKD III BUN 34 and creatinine 2.16 this am COPD Continue inhalers Hypothyroidism TSH elevated on 04/29, recheck outpatient Continue levothyroxine Depression/anxiety Continue citalopram RLS Continue ropinirole Chronic pain Continue buprenorphine patch DVT Prophylaxis: on warfarin, currently holding Code Status: FULL CODE PCP: Dr Shara Ray MD Disposition: Not medically cleared for discharge. Awaiting cardiology recommendations. Patient seen in collaboration with Dr Tinajero. Please see addendum. I spent a total of 50 minutes coordinating, documenting and providing care for this patient excluding time spent in the performance of separately billed services or time spent by another provider/QHP. Admission and Anticipated Discharge Date Admission Date: May 12, 2024 Supervising Physician Co-Signing Physician Notes Patient seen and examined at bedside. Patient describes unstable angina, substernal chest pain (vague) radiation into neck. On my evaluation, patient only saying she has jaw pain. On exam, patient hemodynamically stable, troponins downtrended, prosthetic valve murmur noted. Concern for unstable angina, patient is high risk for ACS with complex cardiac history, although based on echo and troponins active ACS less likely. Appreciate cardiology input. I have seen and discussed the case with the collaborating advanced practitioner. I agree with the above H&P. I have reviewed and confirmed the patients medical history, the findings on physical examination, and the patients diagnosis and treatment plan with Lyubov FARAH and agree with the information documented. I spent a total of 20 minutes coordinating, documenting, and providing care for this patient excluding time spent in the performance of separately billed ser vices. All of the aforementioned completed outside of collaborating with the assigned advanced practitioner for a full treatment plan. I have reviewed the advanced practitioner's documentation, and I agree with, and take responsibility for the plan of care Subjective Patient seen in bed States her chest pain is resolved but still having nagging anterior neck pain below her jaw Denies dizziness, SOB, abdominal pain, N/V/, difficulty swallowing, difficulty talking Reports she had a bad cold with cough recently Currently NPO No concerns from nursing Review of Systems Review of Systems: All systems reviewed & are unremarkable except as noted in HPI & below Physical Exam Physical Exam: VITALS: Reviewed and VSS. GEN: Healthy appearing, well-developed, female, NAD. PSYCH: Good Judgment. AOx3. Normal memory, mood, and affect. HEENT: Head NC/AT. Sclera white and conjunctiva pink. Nares without rhinorrhea. Nasal and oral mucosa pink. NECK: Supple, with no masses. +lymphadenopathy left anterior cervical. Full ROM of neck. CV: Irregular rate and rhythm, mechanical valve click LUNGS: CTAB, no w/r/c. ABD: Soft, NT/ND, NBS, no masses or organomegaly. SKIN: Warm, well perfused. No skin rashes or abnormal lesions. MSK: No deformities, Normal gait. EXT: No clubbing, cyanosis, or edema. NEURO: Ambulating with no limitations. Normal muscle strength and tone. No focal deficits. Results & Data Results & Data Vital Signs (Past 12 Hours) Vital Signs Temp Pulse Pulse Resp BP BP Pulse Ox 05/12/24 07:30 36.6 C 72 18 124/63 05/12/24 05:40 36.7 C 74 16 107/62 96 05/12/24 04:40 05/12/24 04:30 69 24 118/56 L 95 05/12/24 04:24 79 22 96 05/12/24 04:00 103/63 05/12/24 03:51 76 14 96 05/12/24 03:42 70 22 97 05/12/24 03:30 77 15 95/47 L 95 05/12/24 03:00 79 24 99/55 L 95 05/12/24 02:54 80 24 95 05/12/24 02:45 123/54 L 05/12/24 02:30 101/53 L 05/12/24 02:04 100/58 L 05/12/24 01:51 77 17 97 05/12/24 01:48 99 05/12/24 01:45 75 15 98 05/12/24 01:26 81 05/12/24 01:19 104/60 05/12/24 01:16 99 05/12/24 01:16 36.8 C 78 17 104/60 99 05/12/24 01:16 O2 Del Method O2 Flow Rate 05/12/24 07:30 Room Air 05/12/24 05:40 Room Air 05/12/24 04:40 Nasal Cannula 05/12/24 04:30 Nasal Cannula 2 05/12/24 04:24 05/12/24 04:00 05/12/24 03:51 05/12/24 03:42 05/12/24 03:30 05/12/24 03:00 05/12/24 02:54 05/12/24 02:45 05/12/24 02:30 05/12/24 02:04 05/12/24 01:51 05/12/24 01:48 Nasal Cannula 2 05/12/24 01:45 05/12/24 01:26 05/12/24 01:19 05/12/24 01:16 Nasal Cannula 2 05/12/24 01:16 Nasal Cannula 2 05/12/24 01:16 Nasal Cannula 2 Laboratory Results Short CBC 05/12/24 Range/Units 01:46 WBC 7.52 (4.8-10.8) K/ul Hgb 12.8 (12.0-16.0) g/dl Hct 40.0 (37.0-47.0) % Plt Count 128 L (130-400) K/uL BMP 05/12/24 01:46 Sodium 134 L Potassium 4.2 Chloride 99 Carbon Dioxide 29 BUN 34 H Creatinine 2.16 H Glucose 183 H Calcium 9.6 Liver Function 05/12/24 Range/Units 01:46 Total Bilirubin 1.0 (0.2-1.0) mg/dl AST 33 (13-39) U/L ALT 16 (7-52) U/L Alkaline Phosphatase 117 H (34-104) U/L Albumin 4.0 (3.4-5.0) gm/dl I have independently reviewed and interpreted patient's labs including CBC, CMP, PTT, PT/INR, mag and troponin. Diagnostic Findings Chest X-Ray 05/12/24 01:46 EXAM: XR chest 1V portable CLINICAL HISTORY: Chest pain, nonspecific TECHNIQUE: An X-ray image of the chest is obtained in AP projection. COMPARISON: 04/29/2024 FINDINGS: Pulmonary Parenchyma: Prominent bronchovascular markings seen bilaterally. Subsegmental atelectatic changes seen bilaterally. No evidence of consolidation. No evidence of pleural effusion or pleural thickening. Heart and Mediastinum: Cardiac size appears enlarged. No mediastinal widening or masses. No hilar or mediastinal lymphadenopathy. Midline sternotomy sutures with cardiac loop recorder seen is status post intervention. Bony Thorax: Bony thorax appears intact without fractures or deformities. Soft Tissues: Soft tissues overlying the chest wall are unremarkable. IMPRESSION: 1. Imaging findings are likely due to cardiomegaly with congestive changes. 2. No significant interval changes. Electronically signed by Vikas Huertas 05-12-2024 02:37 AM Medications Administered Current Inpatient Medications Acetaminophen (Acetaminophen 500 Mg Tab) 500 mg PO Q6H PRN PRN Reason: Pain Stop: 06/11/24 04:31 Albuterol (Albuterol Hfa 8 Gm Inhaler (Combivent Respimat P&T Subs)) 1 puffs INH QIDR PRN; Protocol PRN Reason: Shortness Of Breath Stop: 06/11/24 05:52 Azelastine HCl (Azelastine Hcl 0.1% Nasal 200 Sprays/27,400 Mcg Btl) 2 sprays NA BID [facility] Stop: 06/11/24 08:59 Last Admin: 05/12/24 08:31 Dose: 2 sprays Buprenorphine HCl (Buprenorphine 5 Mcg/Hr Tdsy) 1 patch TD Th@0900 [facility] Stop: 06/13/24 08:59 Citalopram Hydrobromide (Citalopram 20 Mg Tab) 10 mg PO DAILY [facility] Stop: 06/11/24 08:59 Last Admin: 05/12/24 08:31 Dose: 10 mg Dextrose (Dextrose 50% 50 Ml Syringe) 25 - 50 ml IV UD PRN; Protocol PRN Reason: Hypoglycemia Protocol Stop: 06/11/24 05:36 Folic Acid (Folic Acid 1 Mg Tab) 1 mg PO QAM [facility] Stop: 06/11/24 08:59 Last Admin: 05/12/24 08:30 Dose: 1 mg Glucagon (Glucagon For Inj 1 Mg Vial) 1 mg SQ UD PRN; Protocol PRN Reason: Hypoglycemia Protocol Stop: 06/11/24 05:36 Glucose (Glucose 40% Gel 15 Gm Tube) 15 - 30 gm PO UD PRN; Protocol PRN Reason: Hypoglycemia Protocol Stop: 06/11/24 05:36 Glucose (Glucose 10 Tab/Tube) 4 - 8 tab PO UD PRN; Protocol PRN Reason: Hypoglycemia Protocol Stop: 06/11/24 05:36 Insulin Aspart (Insulin Aspart Per Unit Charge) 0 units SC Q6 [facility] Stop: 06/11/24 05:36 Last Admin: 05/12/24 06:07 Dose: Not Given Ipratropium [place] (Ipratropium Hfa Inhaler (Combivent Respimat P&T Subs)) 1 puffs INH QIDR PRN; Protocol PRN Reason: Shortness Of Breath Stop: 06/11/24 05:52 Levothyroxine Sodium (Levothyroxine Sodium 100 Mcg Tablet) 100 mcg PO DAILYBB [facility] Stop: 06/11/24 06:29 Last Admin: 05/12/24 06:10 Dose: 100 mcg Metoclopramide HCl (Metoclopramide Hcl Inj 5 Mg/Ml 2 Ml Vial) 5 mg IV Q6H PRN PRN Reason: Nausea Stop: 06/11/24 04:34 Metoprolol Succinate (Metoprolol Succ 25mg Ext Rel Tab) 25 mg PO HS [facility] Stop: 06/11/24 20:59 Metoprolol Succinate (Metoprolol Succ 50mg Ext Rel Tab) 50 mg PO QAM [facility] Stop: 06/11/24 08:59 Last Admin: 05/12/24 08:30 Dose: 50 mg Miscellaneous (Remove & Waste Butrans Patch 1 Ea Ea) 1 each N/A Q7D@0859 [facility] Stop: 06/13/24 08:58 Miscellaneous (Check Buprenorphine Patch) 1 each N/A QS [facility] Stop: 06/11/24 07:59 Last Admin: 05/12/24 10:30 Dose: Not Given Miscellaneous (Carbohydrates For Hypoglycemia ) 15 - 30 gm PO UD PRN PRN Reason: Hypoglycemia Protocol Stop: 06/11/24 05:36 Nitroglycerin (Nitroglycerin Sl 0.4 Mg/Tab Tab) 0.4 mg SL Q5M PRN PRN Reason: Chest Pain Stop: 06/11/24 04:33 Pantoprazole Sodium (Pantoprazole 40 Mg Tab) 40 mg PO QAM [facility] Stop: 06/11/24 08:59 Last Admin: 05/12/24 08:31 Dose: 40 mg Ropinirole HCl (Ropinirole Hcl 2 Mg Tablet) 2 mg PO TID [facility] Stop: 06/11/24 08:59 Last Admin: 05/12/24 08:31 Dose: 2 mg Rosuvastatin Calcium (Rosuvastatin Calcium 20 Mg Tab) 20 mg PO QAM [facility] Stop: 06/11/24 08:59 Last Admin: 05/12/24 08:30 Dose: 20 mg Sucralfate (Sucralfate 1 Gm/10 Ml Udc) 1 gm PO QID PRN PRN Reason: NEEDED Stop: 06/11/24 04:31 Tramadol HCl (Tramadol Hcl 50 Mg Tablet) 25 - 50 mg PO Q4H PRN PRN Reason: Pain Stop: 06/11/24 04:34 ECG Additional Comments: I have independently reviewed and interpreted patient's admitting EKG which revealed atrial fibrillation at a rate of 80 (7) HTN (hypertension) Hypertension type: unspecified Qualified Code(s): I10 - Essential (primary) hypertension (8) Hyperlipidemia Hyperlipidemia type: unspecified Qualified Code(s): E78.5 - Hyperlipidemia, unspecified (9) Diabetes type 2, controlled Diabetes mellitus complication status: without complication 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
--- NOTE | 2024-05-12 14:12 | Electrocardiogram Report ---
Test Reason : Blood Pressure : */* mmHG Vent. Rate : 80 BPM Atrial Rate : * BPM P-R Int : * ms QRS Dur : 104 ms QT Int : 428 ms P-R-T Axes : * -57 111 degrees QTcB Int : 493 ms Atrial fibrillation Incomplete right bundle branch block Left anterior fascicular block Minimal voltage criteria for LVH, may be normal variant Abnormal ECG When compared with ECG of 29-Apr-2024 09:41, ST now depressed in Lateral leads Confirmed by Maury Hernandez ([id number]) on 05/12/2024 2:12:20 PM Referred By: Confirmed By: Maury Hernandez
[2024-05-12] MEDS: BUPRENORPHINE 5 MCG/HR TDSY TD ONE (15:37)
[2024-05-12] MEDS: traMADol HCL 50 MG TABLET PO PRN (17:03)
[2024-05-12] MEDS ORDERED: Nursing to Pharmacy Communication SCH (17:30)
[2024-05-12] MEDS: INSULIN ASPART PER UNIT CHARGE SC STA (17:49)
[2024-05-12] MEDS: TORSEMIDE 10 MG TAB PO SCH (17:52)
--- NOTE | 2024-05-12 19:04 | Cardiology Consultation ---
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 INR goal is therefore 33.5. She has had bleeding complications with Lovenox and therefore the time for recent percutaneous tricuspid valve procedure she had been bridged with heparin. Her INRs has recently had been labile. She presented with chest and neck discomfort that was not improved with nitroglycerin. Mild troponin elevation noted that has been trending down no ischemic changes on EKG. Resting echocardiogram currently reassuring. For now, we will proceed with 2 mg of Coumadin (typically alternates between 5 mg and 2.5 mg) maintain INR goal 3- 3.5. Continue supportive care. Not certain if her recent esophageal issues may be playing a role in her symptoms. Angina certainly a consideration, but at this point, I am not convinced that this is an acute coronary syndrome. History of Present Illness Attending Physician: Michael Tinajero MD History of Present Illness Abdi Bowling is a 68 year old female seen in cardiology consultation per the request of Dr Perez for the evaluation of neck and chest pain. Patient presented via the emergency room last night with noted chest and neck pain. She states she took 2 nitroglycerin at home and additional dose in the ambulance with no change in the discomfort. 2 weeks ago she had been diagnosed with rhinovirus and had a cough. Esophageal dysmotility recently noted on fluoroscopic examination of the esophagus on 03/20/2024. This occurred shortly after having had a transesophageal echocardiogram performed on 03/18/2024. At present the patient states that she has no chest discomfort. She has ongoing pain in her neck and right-sided low back pain. 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 - Severe tricuspid regurgitation with resultant right heart failure. Patient underwent percutaneous TriClip placement at [facility] [place] on 03/18/2024, one TriClip was placed, still has residual tricuspid regurgitation however. 2. Chronic atrial fibrillation with tachy Chris syndrome 3. Past embolic myocardial infarction and TIA, on chronic anticoagulation 4. Type 2 diabetes mellitus. 5. Hyperlipidemia. 6. Chronic renal insufficiency. 7. Status post LINQ insertion, March 31, 2021 8. Chronic heart failure with preserved ejection fraction 9. Chronic iron deficiency anemia on infusion therapy Allergies Allergy/AdvReac Type Severity Reaction Status Date / Time budesonide Allergy Severe could not Verified 05/12/24 04:17 breath hydroxyzine Allergy Severe DYSTONIA Verified 05/12/24 04:17 prochlorperazine Allergy Severe NUCHAL Verified 05/12/24 04:17 DYSTONIA promethazine Allergy Severe NUCHAL Verified 05/12/24 04:17 DYSTONIA enoxaparin [From Lovenox] Allergy Unknown ON Verified 05/12/24 04:17 [facility] Inhibitors AdvReac Intermediate COUGH Verified 05/12/24 04:17 gabapentin AdvReac Intermediate CONFUSION/D Verified 05/12/24 04:17 ROWSY lisinopril AdvReac Intermediate Cough Verified 05/12/24 04:17 metformin AdvReac Intermediate DIARRHEA Verified 05/12/24 04:17 oxycodone AdvReac Intermediate NUMB ALL Verified 05/12/24 04:17 OVER parsley AdvReac Intermediate AGITATION Verified 05/12/24 04:17 tetracycline AdvReac Intermediate NAUSEA/VOMI Verified 05/12/24 04:17 TING steroids Allergy Mild Unknown Uncoded 05/12/24 04:17 NAUSEA MEDICINES Allergy Unknown SEE NOTE Uncoded 05/12/24 04:17 BELOW Home Medications Medication Instructions Recorded Confirmed Type cholecalciferol (vitamin D3) 25 1,000 unit PO Q OTHER DAY 12/05/17 05/12/24 History mcg (1,000 unit) capsule (Vitamin D3) nitroglycerin 0.4 mg sublingual 0.4 mg sublingual DIRECTED PRN 12/05/17 05/12/24 History tablet (Nitrostat) Chest Pain omeprazole 20 mg capsule,delayed 20 mg PO QAM 12/05/17 05/12/24 History release levothyroxine 100 mcg tablet 100 mcg PO DAILYBB 05/18/18 05/12/24 History folic acid 1 mg tablet 1 mg PO QAM #30 tabs 05/21/18 05/12/24 Rx magnesium hydroxide 400 mg/5 mL 5 ml PO DAILY PRN Constipation 12/31/19 05/12/24 History oral suspension (Milk of Magnesia) spironolactone 25 mg tablet 12.5 mg PO QAM 12/31/19 05/12/24 History rosuvastatin 20 mg tablet 20 mg PO QAM 10/15/20 05/12/24 History citalopram 10 mg tablet 10 mg PO DAILY 07/18/21 05/12/24 History tramadol 50 mg tablet 50 mg PO BID PRN Pain 07/18/21 05/12/24 History azelastine 137 mcg (0.1 %) nasal 2 spray intranasal AMHS 08/02/21 05/12/24 History spray ropinirole 2 mg tablet 2 mg PO TID 09/01/21 05/12/24 History Incentive Spirometer #1 ea 09/05/21 05/12/24 Rx Magnesium Glycinate 665 665 mg PO DAILY 11/30/21 05/12/24 History valacyclovir 1 gram tablet 2,000 mg PO AMPM PRN Cold Sores 11/30/21 05/12/24 History Oxygen Home #1 ea 04/08/23 05/12/24 Rx Oxygen Home #2 ea 05/03/23 05/12/24 Rx acetaminophen 500 mg tablet 500 mg PO Q6H PRN Pain 07/09/23 05/12/24 History (Tylenol Extra Strength) albuterol sulfate 90 mcg/actuation 2 puff inhalation Q4H PRN 07/09/23 05/12/24 History aerosol inhaler COUGH/SHORT OF BREATH/WHEEZING benzonatate 100 mg capsule 100 mg PO TID PRN cough 07/09/23 05/12/24 History buprenorphine 5 mcg/hour weekly 5 mcg transdermal WK 07/09/23 05/12/24 History transdermal patch empagliflozin 10 mg tablet 10 mg PO QAM 07/09/23 05/12/24 History (Jardiance) lidocaine HCl 4 % (40 mg/mL) 1 applic mucous membrane 07/09/23 05/12/24 History mucosal solution DIRECTED PRN MOUTH ULCERS metoclopramide HCl 10 mg tablet 10 mg PO DAILYBB PRN Nausea 07/09/23 05/12/24 History (Reglan) nystatin 100,000 unit/mL oral 5 ml mucous membrane QID PRN THRUSH 07/09/23 05/12/24 History suspension sucralfate 100 mg/mL oral 10 ml PO QID PRN NEEDED 07/09/23 05/12/24 History suspension warfarin 2.5 mg tablet 2.5 mg PO DIRECTED 07/09/23 05/12/24 History metoprolol succinate 50 mg 50 mg PO QAM #30 tabs 07/14/23 05/12/24 Rx tablet,extended release 24 hr torsemide 100 mg tablet 100 mg PO DAILY #30 tabs 07/14/23 05/12/24 Rx ipratropium 20 mcg-albuterol 100 1 puff inhalation QID PRN 11/04/23 05/12/24 Rx mcg/actuation mist for inhalation Shortness Of Breath #12 grams (Combivent Respimat) ipratropium 0.5 mg-albuterol 3 mg 3 ml inhalation QID PRN shortness 05/05/24 05/12/24 Rx (2.5 mg base)/3 mL nebulization of breath or wheezing #1,080 mL soln metoprolol succinate 25 mg 25 mg PO HS 05/12/24 05/12/24 History tablet,extended release 24 hr potassium chloride 10 mEq 20 meq PO BID 05/12/24 05/12/24 History tablet,extended release torsemide 100 mg tablet 50 mg PO HS 05/12/24 05/12/24 History Patient History Medical History History of blood transfusion autologous s/p MVR (1993), 09/2018 (post-op) A-fib 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 migraine vs. stress related)-- plavix since discontinued Anxiety Restless legs syndrome Migraines Diabetes diet controlled HTN (hypertension) Surgical History H/O radioactive iodine thyroid ablation H/O: hysterectomy History of cardiac cath History of colonoscopy History of tonsillectomy and adenoidectomy History of total left knee replacement Hx of appendectomy Hx of cholecystectomy Hx of mitral valve replacement Hx of tubal ligation Family History Uncle , of [place] in his 40s Coronary heart disease Social History Smoking Status: Never smoker Second Hand Exposure: No; Do You Dip or Chew Tobacco: No; Hx Alcohol Use: Yes Alcohol type: wine Hx Substance Use: No Preferred Language: Italian Communication Ability: Effective Communication Ability Comment: speech impediment, easily understood Energy Director Required: No Beliefs That Will Affect Care: Alevism Alevism Beliefs: Church marital status: Single Current Living Situation: Alone Current Living Situation Comment: from home with care tech. current occupational status: disabled How many Children do You have: 0 Feels Safe at Home: Yes Safety Concerns: Feels Safe At This Time Assistive Devices: Oxygen - at Night and Walker Review of Systems Review of Systems: All systems reviewed & are unremarkable except as noted in HPI & below Physical Exam Physical Exam: General: no acute distress and stated age Eyes: conjunctiva are pink and non-injected, sclera clear Neck: normal jugular venous pulse, no hepatojugular reflux Chest: normal shape and normal respiratory effort Lungs: clear to auscultation and percussion Cardiac Exam: -Irregular rhythm, crisp prosthetic heart sounds noted, 1/6 systolic murmur Abdomen: abdomen soft, non-tender, no abnormal masses and no hepatosplenomegaly Musculoskeletal: no gait disturbance, no weakness Extremities: no edema and no cyanosis Neuro:awake, conversant, follows commands, no focal motor deficits Psych: appropriate affect and insight. Results & Data Vital Signs (Past 12 Hours) Vital Signs Temp Pulse Pulse Resp BP Pulse Ox O2 Del Method 05/12/24 16:43 36.7 C 71 16 122/66 93 Room Air 05/12/24 11:14 36.6 C 67 18 107/66 94 Room Air 05/12/24 07:40 64 05/12/24 07:30 36.6 C 72 18 124/63 Room Air Laboratory Results Cardiac Enzymes 05/12/24 05/12/24 05/12/24 Range/Units 01:46 04:55 08:22 AST 33 (13-39) U/L Troponin I High Sens 17.7 H 26.5 H Cancelled (0-14) pg/ml 05/12/24 05/12/24 Range/Units 08:22 10:30 AST (13-39) U/L Troponin I High Sens 20.6 H 18.5 H (0-14) pg/ml Coagulation 05/12/24 Range/Units 01:46 PT 29.1 H (9.0-12.0) Seconds INR 3 CBC 05/12/24 Range/Units 01:46 WBC 7.52 (4.8-10.8) K/ul RBC 4.53 (4.20-5.40) M/uL Hgb 12.8 (12.0-16.0) g/dl Hct 40.0 (37.0-47.0) % Plt Count 128 L (130-400) K/uL Neut # (Auto) 5.29 (1.40-6.50) K/uL Lymph # (Auto) 1.23 (1.20-3.40) K/uL [place] # (Auto) 0.71 H (0.11-0.59) K/uL Eos # (Auto) 0.22 (0.00-0.50) K/uL Baso # (Auto) 0.04 (0.00-0.20) K/uL Comprehensive Metabolic Panel 05/12/24 Range/Units 01:46 Sodium 134 L (136-145) mmol/L Potassium 4.2 (3.5-5.1) mmol/L Chloride 99 (98-107) mmol/L Carbon Dioxide 29 (21-32) mmol/L BUN 34 H (6-23) mg/dl Creatinine 2.16 H (0.6-1.2) mg/dl Glucose 183 H (70-99(Fasting)) mg/dl Calcium 9.6 (8.6-10.3) mg/dl AST 33 (13-39) U/L ALT 16 (7-52) U/L Alkaline Phosphatase 117 H (34-104) U/L Total Protein 7.4 (6.0-8.3) gm/dl Albumin 4.0 (3.4-5.0) gm/dl Intake and Output 05/12/24 05/12/24 05/12/24 06:59 14:59 22:59 Intake Total 150 / 150 Output Total 75 / 75 Balance 150 / 150 -75 / -75 Intake: IV 150 / 150 Acetaminophen 1,000 mg In 100 100 / 100 ml @ 400 mls/hr IV NOW STA Rx#: [id number] Albumin 25% 12.5 gm In 50 ml @ 50 / 50 50 mls/hr IV ONE ONE Rx#: [id number] Output: Urine 75 / 75 Other: Other Intake Source PATIENT IS NPO # Unmeasured Voids 1 Weight 62.5 kg Weight Measurement Method Standing Scale Diagnostic Findings Echocardiogram performed today revealed normal left ventricular wall motion LVEF, ejection fraction range of 55-60%, moderate right ventricular dilatation, severe biatrial enlargement, mechanical mitral valve noted with normal gradients, severe tricuspid regurgitation noted EKG performed 05/12/2024 at 1:19 AM revealed atrial fibrillation 80 bpm, without significant repolarization abnormalities.
[2024-05-12] MEDS: WARFARIN SOD 2 MG TAB PO ONE (19:51)
[2024-05-12] MEDS: METOPROLOL SUCC 25MG EXT REL TAB PO SCH (19:56)
[2024-05-12] MEDS: BENZONATATE 100 MG CAPSULE PO PRN (21:50)
[2024-05-13 04:28] VITALS: RESP 16
[2024-05-13 06:24] LABS: Basophils # (auto) 0.04 K/uL (0.00-0.20); Basophils % (auto) 0.5 %; Eosinophils # (auto) 0.25 K/uL (0.00-0.50); Eosinophils % (auto) 3.1 %; Hematocrit (blood only) 42.5 % (37.0-47.0); Hemoglobin 13.6 g/dl (12.0-16.0); Immature Granulocytes # (auto) 0.03 K/uL (0.01-0.20); Immature Granulocytes % (auto) 0.4 %; Lymphocytes # (auto) 1.41 K/uL (1.20-3.40); Lymphocytes % (auto) 17.7 %; Mean Corpuscular Hemoglobin 28.6 pg (25.0-34.0); Mean Corpuscular Volume 89.5 fL (80.0-100.0); Mean Platelet Volume 10.7 fL (9.4-12.4); Monocytes # (auto) 0.61 K/uL (0.11-0.59); Monocytes % (auto) 7.7 %; Neutrophils # (auto) 5.63 K/uL (1.40-6.50); Neutrophils % (auto) 70.6 %; Platelet Count 149 K/uL (130-400); RDW Coefficient of Variation 15.9 % (11.5-14.5); RDW Standard Deviation 51.6 fL (36.4-46.3); Red Blood Count 4.75 M/uL (4.20-5.40); White Blood Count 7.97 K/ul (4.8-10.8)
[2024-05-13 06:43] LABS: BUN Creatinine Ratio 14.5 (10-20); Calcium 9.9 mg/dl (8.6-10.3); Creatinine Clr Calc Pharmacy 16.4 ml/min; Magnesium 2.8 mg/dl (1.7-2.4); Potassium 4.1 mmol/L (3.5-5.1)
[2024-05-13 07:29] LABS: Prothrombin Time 29.3 Seconds (9.0-12.0)
[2024-05-13 08:59] LABS: Troponin I High Sensitivity 18.3 pg/ml (0-14)
[2024-05-13] MEDS: SPIRONOLACTONE 12.5 MG TAB PO SCH (09:03)
[2024-05-13] MEDS: TORSEMIDE 100 MG TAB PO SCH (09:03)
--- NOTE | 2024-05-13 10:43 | Electrocardiogram Report ---
Test Reason : Blood Pressure : */* mmHG Vent. Rate : 70 BPM Atrial Rate : * BPM P-R Int : * ms QRS Dur : 92 ms QT Int : 438 ms P-R-T Axes : * -59 110 degrees QTcB Int : 473 ms Atrial fibrillation Left anterior fascicular block Minimal voltage criteria for LVH, may be normal variant Nonspecific ST and T wave abnormality Abnormal ECG When compared with ECG of 12-May-2024 01:19, No significant change was found Confirmed by Maury Hernandez ([id number]) on 05/13/2024 10:43:31 AM Referred By: REFERRED SELF Confirmed By: Maury Hernandez
--- NOTE | 2024-05-13 11:19 | Discharge Summary ---
Discharge Summary Date of Service May 13, 2024 Principal Dx & Hospital Course #1 = Principal Diagnosis (1) Chest pain: (2) Elevated troponin: (3) Chronic diastolic CHF (congestive heart failure): (4) Permanent atrial fibrillation: (5) Rheumatic heart disease: (6) H/O mitral valve replacement with mechanical valve: (7) HTN (hypertension): (8) Hyperlipidemia: (9) Diabetes type 2, controlled: (10) COPD (chronic obstructive pulmonary disease): (11) Hypothyroidism: (12) Depression: (13) Restless legs syndrome: (14) Chronic pain: (15) Esophageal dysmotility: Plan 68 year old female with PMH significant for chronic diastolic heart failure (EF 60% April 2024), permanent A fib, severe TR status post recent Triclip procedure (Feb 2024), s/p LOOP (Mar 2021), rheumatic heart disease s/p mechanical MVR (1993) on Coumadin, HTN, HLD, DMII, CKD III (BL creat 1.6-1.7), COPD, hypothyroidism, depression/anxiety, RLS, chronic pain, and esophageal dysmotility who was admitted for substernal chest pain radiating to her jaw. Chest pain, mild troponin elevation Chest pain improved after Fentanyl administration by EMS. No chest pain while in the hospital EKG revealed no ischemic changes, echocardiogram without significant change from previous echo in June 2023 Troponin initially mildly elevated but downtrended appropriately Cardiology consulted and did not think this was acute coronary syndrome Patient continued to complain of anterior neck pain below the jaw, although it improved in severity Patient denied difficulty talking or swallowing and has full ROM of the neck Unclear etiology of neck pain at this time with differentials to include angina or esophageal dysmotility found on fluoroscopy 03/20/24 Chronic diastolic heart failure Permanent Afib HTN, HLD Follows with Cardiology Continue torsemide, aldactone, metoprolol, rosuvastatin per home dosing Continue warfarin with dosing per anticoagulation clinic recommendations - PT 29.3 and INR 3.0 this am DMII Resume Jardiance per home dosing CKD III BUN 38 and creatinine 2.62 this am Avoid nephrotoxic agents COPD Continue inhalers per home dosing Hypothyroidism TSH 10.5 (free T4 1.41) on 04/29, recommend TSH recheck outpatient Continue levothyroxine per home dosing Depression/anxiety Continue citalopram per home dosing RLS Continue ropinirole per home dosing Chronic pain Buprenorphine patch was removed by EMS during transport to hospital Reapplied on 05/12 at 1530 Patient seen in collaboration with Dr Tinajero. Please see addendum. Notes For Next Care Provider 68 year old female with complex cardiac history admitted for substernal chest pain radiating to her jaw. EKG and echo reassuring. Cardiology consulted and did not think chest pain was consistent with acute coronary syndrome. Patient still complaining of neck pain at time of discharge as described above. Recommend follow up with GI on 05/15 for evaluation of esophageal dysmotility that could be contributing to neck pain. Recommend recheck of TSH outpatient as this was elevated on 04/29. Medication Changes From Visit None. Please continue home meds per dosing. Recommend following guidance from anticoagulation clinic regarding warfarin dosing. Admission HPI Per Admitting Provider History obtained from patient and records. Medical history significant for chronic diastolic heart failure (EF 55%, TTE 2024), SSS/rheumatic heart disease/history of mechanical MVR on Coumadin, history of Linq insertion, CAD as per records, severe TR status post recent Triclip procedure, hypertension, hyperlipidemia, history embolic CVA as per records, COPD, esophageal dysmotility as per records, DM2 diet-controlled, hypothyroidism, hyperparathyroidism as per records, CRI (baseline creatinine 1.6-2 as per records), RLS, chronic pain on Suboxone. [place] [facility] [place] 23, [place] under cardiology service for severe TR status post Tri clip procedure. New onset dysphagia during confinement. Esophageal dysmotility on esophagram. Outpatient GI referral recommended by discharging provider. Recent [facility] ER visit 2 weeks ago for intractable cough symptoms BioFire positive for rhinovirus.. NSVT episodes at the ER. Patient stylist assistant recommended increasing home Toprol XL to 50 mg in the morning and 25 mg at night. Patient discharged on prednisone course for respiratory tract infection. Augmentin later added to patient regimen by PCP. Improved cough symptoms. Patient experienced substernal pain going to her jaw last night similar to heart attack episodes. Compliant with home meds. No unusual cough symptoms. Some SOB. Patient denies fluid retention. No improvement with nitroglycerin and neb treatment administered at home. EMS called to patient's home. Improved discomfort after Fentanyl administration and brought to ER. 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 GEN: Healthy appearing, well-developed, female, NAD. PSYCH: Good Judgment. AOx3. Normal memory, mood, and affect. HEENT: Head NC/AT. Sclera white and conjunctiva pink. Nares without rhinorrhea. Nasal and oral mucosa pink. NECK: Supple, with no masses. Full ROM of neck. CV: Irregular rate and rhythm, mechanical valve click LUNGS: CTAB, no w/r/c. ABD: Soft, NT/ND, NBS, no masses or organomegaly. SKIN: Warm, well perfused. No skin rashes or abnormal lesions. MSK: No deformities, Normal gait. EXT: No clubbing, cyanosis, or edema. NEURO: Ambulating with no limitations. Normal muscle strength and tone. No focal deficits. Updated Medication List Medication Instructions Recorded Confirmed Type cholecalciferol (vitamin D3) 25 1,000 unit PO Q OTHER DAY 12/05/17 05/12/24 History mcg (1,000 unit) capsule (Vitamin D3) nitroglycerin 0.4 mg sublingual 0.4 mg sublingual DIRECTED PRN 12/05/17 05/12/24 History tablet (Nitrostat) Chest Pain omeprazole 20 mg capsule,delayed 20 mg PO QAM 12/05/17 05/12/24 History release levothyroxine 100 mcg tablet 100 mcg PO DAILYBB 05/18/18 05/12/24 History folic acid 1 mg tablet 1 mg PO QAM #30 tabs 05/21/18 05/12/24 Rx magnesium hydroxide 400 mg/5 mL 5 ml PO DAILY PRN Constipation 12/31/19 05/12/24 History oral suspension (Milk of Magnesia) spironolactone 25 mg tablet 12.5 mg PO QAM 12/31/19 05/12/24 History rosuvastatin 20 mg tablet 20 mg PO QAM 10/15/20 05/12/24 History citalopram 10 mg tablet 10 mg PO DAILY 07/18/21 05/12/24 History tramadol 50 mg tablet 50 mg PO BID PRN Pain 07/18/21 05/12/24 History azelastine 137 mcg (0.1 %) nasal 2 spray intranasal AMHS 08/02/21 05/12/24 History spray ropinirole 2 mg tablet 2 mg PO TID 09/01/21 05/12/24 History Incentive Spirometer #1 ea 09/05/21 05/12/24 Rx Magnesium Glycinate 665 665 mg PO DAILY 11/30/21 05/12/24 History valacyclovir 1 gram tablet 2,000 mg PO AMPM PRN Cold Sores 11/30/21 05/12/24 History Oxygen Home #1 ea 04/08/23 05/12/24 Rx Oxygen Home #2 ea 05/03/23 05/12/24 Rx acetaminophen 500 mg tablet 500 mg PO Q6H PRN Pain 07/09/23 05/12/24 History (Tylenol Extra Strength) albuterol sulfate 90 mcg/actuation 2 puff inhalation Q4H PRN 07/09/23 05/12/24 History aerosol inhaler COUGH/SHORT OF BREATH/WHEEZING benzonatate 100 mg capsule 100 mg PO TID PRN cough 07/09/23 05/12/24 History buprenorphine 5 mcg/hour weekly 5 mcg transdermal WK 07/09/23 05/12/24 History transdermal patch empagliflozin 10 mg tablet 10 mg PO QAM 07/09/23 05/12/24 History (Jardiance) lidocaine HCl 4 % (40 mg/mL) 1 applic mucous membrane 07/09/23 05/12/24 History mucosal solution DIRECTED PRN MOUTH ULCERS metoclopramide HCl 10 mg tablet 10 mg PO DAILYBB PRN Nausea 07/09/23 05/12/24 History (Reglan) nystatin 100,000 unit/mL oral 5 ml mucous membrane QID PRN THRUSH 07/09/23 05/12/24 History suspension sucralfate 100 mg/mL oral 10 ml PO QID PRN NEEDED 07/09/23 05/12/24 History suspension warfarin 2.5 mg tablet 2.5 mg PO DIRECTED 07/09/23 05/12/24 History metoprolol succinate 50 mg 50 mg PO QAM #30 tabs 07/14/23 05/12/24 Rx tablet,extended release 24 hr torsemide 100 mg tablet 100 mg PO DAILY #30 tabs 07/14/23 05/12/24 Rx ipratropium 20 mcg-albuterol 100 1 puff inhalation QID PRN 11/04/23 05/12/24 Rx mcg/actuation mist for inhalation Shortness Of Breath #12 grams (Combivent Respimat) ipratropium 0.5 mg-albuterol 3 mg 3 ml inhalation QID PRN shortness 05/05/24 05/12/24 Rx (2.5 mg base)/3 mL nebulization of breath or wheezing #1,080 mL soln metoprolol succinate 25 mg 25 mg PO HS 05/12/24 05/12/24 History tablet,extended release 24 hr potassium chloride 10 mEq 20 meq PO BID 05/12/24 05/12/24 History tablet,extended release torsemide 100 mg tablet 50 mg PO HS 05/12/24 05/12/24 History Hospital Stay Data Consultations 05/12/24 02:50 ED Decision to Admit Stat 05/12/24 05:37 Consult Cardiology Routine Diagnostic Imagining Performed Chest X-Ray 05/12/24 01:46 EXAM: XR chest 1V portable CLINICAL HISTORY: Chest pain, nonspecific TECHNIQUE: An X-ray image of the chest is obtained in AP projection. COMPARISON: 04/29/2024 FINDINGS: Pulmonary Parenchyma: Prominent bronchovascular markings seen bilaterally. Subsegmental atelectatic changes seen bilaterally. No evidence of consolidation. No evidence of pleural effusion or pleural thickening. Heart and Mediastinum: Cardiac size appears enlarged. No mediastinal widening or masses. No hilar or mediastinal lymphadenopathy. Midline sternotomy sutures with cardiac loop recorder seen is status post intervention. Bony Thorax: Bony thorax appears intact without fractures or deformities. Soft Tissues: Soft tissues overlying the chest wall are unremarkable. IMPRESSION: 1. Imaging findings are likely due to cardiomegaly with congestive changes. 2. No significant interval changes. Electronically signed by Vikas Huertas 05-12-2024 02:37 AM Pending Results Patient Have Any Pending Studies at Discharge: No Discharge Instructions Given to Patient (Per Discharging Provider) You were admitted to the hospital after experiencing chest pain radiating to your neck at home. There were no signs of cardiac ischemia on your EKG and your echocardiogram was reassuring. Cardiology was consulted and do not think you were having a heart attack. At this point, we are not sure where your neck pain is coming from. We recommend you follow up with GI as scheduled on 05/15 to further evaluate your esophageal dysmotility that may be playing a role in your pain. MEDICATION CHANGES: We did not make any changes to your home medications. Please continue to follow with the anticoagulation clinic regarding your warfarin dosing. Cardiology wants you to maintain an INR goal of 3.0-3.5 SUMMARY OF TEST RESULTS: See above PENDING TEST RESULTS: None RECOMMENDATIONS FOR FOLLOW-UP: Please follow up with your PCP after being in the hospital Please continue to follow with Cardiology Please follow up with GI as scheduled on 05/15 for evaluation of your esophageal dysmotility OTHER INSTRUCTIONS: Seek medical attention if you have: * temperature above 101 * chest pain or trouble breathing * abdominal pain, nausea, vomiting * diarrhea, dark stools or bloody stools * any unanswered questions or concerns Call 911 if symptoms are severe. It has been a pleasure taking care of you. Please take care of yourself. If you have any questions regarding your recent hospitalization please contact [facility] and [facility] @ [phone]. Total Time Total Time Spent Total Time Spent (In Minutes): I spent a total of 35 minutes coordinating, documenting and providing care for this patient excluding time spent in the performance of separately billed services or time spent by another provider/QHP. Supervising Physician Co-Signing Physician Notes Patient seen and examined at bedside. Pain is much improved. Suspect multifactorial element of pain, including esophageal dysmotility, chronic pain syndrome. Unstable angina is lower on differential, appreciate cardiology input. Would strongly recommend stopping tramadol and uptitration butrans patch as n ecessary, as tramadol is heavily serotonergic with high addiction potential and relatively low analgesic properties compared to other opioids, and should not serve role in chronic pain syndromes. I have seen and discussed the case with the collaborating advanced practitioner. I agree with the above H&P. I have reviewed and confirmed the patients medical history, the findings on physical examination, and the patients diagnosis and treatment plan with Lyubov FARAH and agree with the information documented. I spent a total of 20 minutes coordinating, documenting, and providing care for this patient excluding time spent in the performance of separately billed services. All of the aforementioned completed outside of collaborating with the assigned advanced practitioner for a full treatment plan. I have reviewed the advanced practitioner's documentation, and I agree with, and take responsibility for the plan of care
[2024-05-13 11:22] VITALS: BP 120/71; PULSE 76; TEMP 98.1; O2SAT 93
--- NOTE | 2024-05-13 11:25 | Cardiology Progress Note ---
Date of Service May 13, 2024 Assessment & Plan (1) Substernal chest pain: (2) Elevated troponin: Plan mild flat HS troponin elevation in the setting of CKD, repeat level stable. EKG reassuring as was resting echocardiogram. Perhaps neck pain residual from her recent viral URI with cough. She does not feel like she is having any problems swallowing Creatine worse than baseline. Hold PM dose of torsemide. INR 3 . Proceed with coumadin 2.5 mg today. Stable for discharge from cardiology perspective with plan to hold PM diuretic, resume usual diuretics tomorrow, BMP as outpatient at end of week and close outpatient follow up of INR. Case discussed with Dr Winters in person for the purpose of coordination of care. Admission and Anticipated Discharge Date Admission Date: May 12, 2024 Subjective Patient seen in cardiology follow up. Neck and back pain are not completely gone, but much better. Physical Exam Constitutional: well developed and well nourished Respiratory: normal respiratory effort, lungs clear to auscultation Cardiovascular: Rate/Rhythm: + irregularly irregular crisp prosthetic heart sounds No edema Gastrointestinal (Abdomen): normal bowel sounds, soft, nontender, no hepatosplenomegaly Neurologic: PERRL, EOMI, accommodation nl, no face palsy, no dysarthria Results & Data Vital Signs (Past 12 Hours) Vital Signs Temp Pulse Pulse Resp BP Pulse Ox O2 Del Method 05/13/24 11:21 36.7 C 76 16 120/71 93 Room Air 05/13/24 09:59 Room Air 05/13/24 07:49 37.0 C 55 L 16 121/63 96 Room Air 05/13/24 07:44 69 05/13/24 04:27 36.6 C 74 16 122/69 93 Room Air 05/12/24 23:31 78 Laboratory Results Cardiac Enzymes 05/13/24 Range/Units 06:01 Troponin I High Sens 18.3 H (0-14) pg/ml Coagulation 05/13/24 Range/Units 06:01 PT 29.3 H (9.0-12.0) Seconds CBC 05/13/24 Range/Units 06:01 WBC 7.97 (4.8-10.8) K/ul RBC 4.75 (4.20-5.40) M/uL Hgb 13.6 (12.0-16.0) g/dl Hct 42.5 (37.0-47.0) % Plt Count 149 (130-400) K/uL Neut # (Auto) 5.63 (1.40-6.50) K/uL Lymph # (Auto) 1.41 (1.20-3.40) K/uL [place] # (Auto) 0.61 H (0.11-0.59) K/uL Eos # (Auto) 0.25 (0.00-0.50) K/uL Baso # (Auto) 0.04 (0.00-0.20) K/uL Comprehensive Metabolic Panel 05/13/24 Range/Units 06:01 Sodium 136 (136-145) mmol/L Potassium 4.1 (3.5-5.1) mmol/L Chloride 99 (98-107) mmol/L Carbon Dioxide 33 H (21-32) mmol/L BUN 38 H (6-23) mg/dl Creatinine 2.62 H D (0.6-1.2) mg/dl Glucose 100 H (70-99(Fasting)) mg/dl Calcium 9.9 (8.6-10.3) mg/dl Intake and Output 05/12/24 05/13/24 05/13/24 22:59 06:59 14:59 Intake Total 200 / 350 150 / 350 Output Total 525 / 1101 501 / 1101 Balance -325 / -751 -351 / -751 Intake: Oral 200 / 350 150 / 350 Output: Urine 525 / 1100 500 / 1100 # Bowel Movements Other: Weight 62 kg Weight Measurement Method Standing Scale Diagnostic Findings Repeat EKG 05/13/24 with rate controlled AF, normal ST segments
[2024-05-14] MEDS ORDERED: BUPRENORPHINE 5 MCG/HR TDSY TD SCH (09:00)
== END 2024-05-13 13:56 | disposition home or self-care (01) ==
LOC: ED 01:13 → 4W 01:13 → SUATTDRO 03:18 → 4W 04:40

== ENCOUNTER 2024-06-09 19:29 | Inpatient (IN) ==
[2024-06-09 21:18] LABS: Hematocrit (blood only) 39.6 % (37.0-47.0); Hemoglobin 12.6 g/dl (12.0-16.0); Mean Corpuscular Hgb Conc 31.8 g/dL (32.0-36.0); Mean Platelet Volume 11.3 fL (9.4-12.4); Platelet Count 144 K/uL (130-400); RDW Coefficient of Variation 15.9 % (11.5-14.5); RDW Standard Deviation 51.4 fL (36.4-46.3); White Blood Count 6.79 K/ul (4.8-10.8)
[2024-06-09 21:32] LABS: BUN Creatinine Ratio 14.4 (10-20); Calcium 10.3 mg/dl (8.6-10.3); Creatinine Clr Calc Pharmacy 23.1 ml/min; Potassium 3.7 mmol/L (3.5-5.1)
--- NOTE | 2024-06-09 22:18 | Emergency Department Note ---
History of Present Illness General Chief complaint: Vaginal Bleeding Stated complaint: VAG BLEEDING Time Seen by Provider: 06/09/24 21:32 History of Present Illness This 68-year-old female on Coumadin for heart valve replacement presents ER for vaginal bleeding for the past few days. Patient states she was having intercourse last week and was a little rough. She did use some lubricant but she feels like it was not enough. She has had a hysterectomy but has her cervical cuff. Patient denies abdominal pain, flank pain, urinary symptoms or any other medical complaints. Home Medications Medication Instructions Recorded Confirmed Type cholecalciferol (vitamin D3) 25 1,000 unit PO Q OTHER DAY 12/05/17 06/10/24 History mcg (1,000 unit) capsule (Vitamin D3) nitroglycerin 0.4 mg sublingual 0.4 mg sublingual DIRECTED PRN 12/05/17 06/10/24 History tablet (Nitrostat) Chest Pain omeprazole 20 mg capsule,delayed 20 mg PO QAM 12/05/17 06/10/24 History release levothyroxine 100 mcg tablet 100 mcg PO DAILYBB 05/18/18 06/10/24 History folic acid 1 mg tablet 1 mg PO QAM #30 tabs 05/21/18 06/10/24 Rx spironolactone 25 mg tablet 12.5 mg PO QAM 12/31/19 06/10/24 History citalopram 10 mg tablet 10 mg PO QAM 07/18/21 06/10/24 History tramadol 50 mg tablet 50 mg PO Q6 PRN .severe 07/18/21 06/10/24 History breakthrough pain azelastine 137 mcg (0.1 %) nasal 2 spray intranasal AMHS 08/02/21 06/10/24 History spray ropinirole 2 mg tablet 2 mg PO TID 09/01/21 06/10/24 History Incentive Spirometer #1 ea 09/05/21 06/10/24 Rx valacyclovir 1 gram tablet 2,000 mg PO AMPM PRN Cold Sores 11/30/21 06/10/24 History Oxygen Home #1 ea 04/08/23 06/10/24 Rx Oxygen Home #2 ea 05/03/23 06/10/24 Rx acetaminophen 500 mg tablet 500 mg PO Q6H PRN Pain 07/09/23 06/10/24 History (Tylenol Extra Strength) albuterol sulfate 90 mcg/actuation 2 puff inhalation Q4H PRN 07/09/23 06/10/24 History aerosol inhaler COUGH/SHORT OF BREATH/WHEEZING benzonatate 100 mg capsule 100 mg PO TID PRN cough 07/09/23 06/10/24 History buprenorphine 5 mcg/hour weekly 5 mcg transdermal WK 07/09/23 06/10/24 History transdermal patch empagliflozin 10 mg tablet 10 mg PO QAM 07/09/23 06/10/24 History (Jardiance) lidocaine HCl 4 % (40 mg/mL) 1 applic mucous membrane 07/09/23 06/10/24 History mucosal solution DIRECTED PRN MOUTH ULCERS metoclopramide HCl 10 mg tablet 10 mg PO DAILYBB PRN Nausea 07/09/23 06/10/24 History (Reglan) nystatin 100,000 unit/mL oral 5 ml mucous membrane QID PRN THRUSH 07/09/23 06/10/24 History suspension warfarin 2.5 mg tablet 2.5 mg PO DIRECTED 07/09/23 06/10/24 History metoprolol succinate 50 mg 50 mg PO QAM #30 tabs 07/14/23 06/10/24 Rx tablet,extended release 24 hr ipratropium 20 mcg-albuterol 100 1 puff inhalation QID PRN 11/04/23 06/10/24 Rx mcg/actuation mist for inhalation Shortness Of Breath #12 grams (Combivent Respimat) ipratropium 0.5 mg-albuterol 3 mg 3 ml inhalation QID PRN shortness 05/05/24 06/10/24 Rx (2.5 mg base)/3 mL nebulization of breath or wheezing #1,080 mL soln metoprolol succinate 25 mg 25 mg PO HS 05/12/24 06/10/24 History tablet,extended release 24 hr potassium chloride 10 mEq 20 meq PO BID 05/12/24 06/10/24 History tablet,extended release torsemide 100 mg tablet 50 mg PO .DAILY IN AFTERNOON 05/12/24 06/10/24 History rosuvastatin 10 mg tablet 10 mg PO QAM 06/10/24 06/10/24 History torsemide 100 mg tablet 100 mg PO QAM 06/10/24 06/10/24 History Allergies Allergy/AdvReac Type Severity Reaction Status Date / Time budesonide Allergy Severe could not Verified 05/12/24 04:17 breath hydroxyzine Allergy Severe DYSTONIA Verified 05/12/24 04:17 prochlorperazine Allergy Severe NUCHAL Verified 05/12/24 04:17 DYSTONIA promethazine Allergy Severe NUCHAL Verified 05/12/24 04:17 DYSTONIA enoxaparin [From Lovenox] Allergy Unknown ON Verified 05/12/24 04:17 [facility] Inhibitors AdvReac Intermediate COUGH Verified 05/12/24 04:17 gabapentin AdvReac Intermediate CONFUSION/D Verified 05/12/24 04:17 ROWSY lisinopril AdvReac Intermediate Cough Verified 05/12/24 04:17 metformin AdvReac Intermediate DIARRHEA Verified 05/12/24 04:17 oxycodone AdvReac Intermediate NUMB ALL Verified 05/12/24 04:17 OVER parsley AdvReac Intermediate AGITATION Verified 05/12/24 04:17 tetracycline AdvReac Intermediate NAUSEA/VOMI Verified 05/12/24 04:17 TING steroids Allergy Mild Unknown Uncoded 05/12/24 04:17 NAUSEA MEDICINES Allergy Unknown SEE NOTE Uncoded 05/12/24 04:17 BELOW Past Med/Surg History Problem List (Updated 06/10/24 @ 03:35 by Abdulkadir Samuel MD) Postmenopausal postcoital bleeding Vaginal atrophy Acute UTI (Acute) Supratherapeutic INR (Acute) Vagina bleeding (Acute) Elevated troponin (Acute) Substernal chest pain (Acute) Depression Elevated troponin Esophageal dysmotility Chronic pain COPD (chronic obstructive pulmonary disease) Chest pain Acute kidney injury superimposed on chronic kidney disease (Acute) Acute exacerbation of CHF (congestive heart failure) (Acute) Restrictive lung disease CHF (congestive heart failure) (Acute) Cough (Acute) Acute dyspnea (Acute) Acute foot pain (Acute) Supratherapeutic INR (Acute) Exertional shortness of breath Upper airway cough syndrome Chronic cough Occult blood positive stool H/O mitral valve replacement with mechanical valve Rheumatic heart disease Permanent atrial fibrillation History of CVA (cerebrovascular accident) Chronic diastolic CHF (congestive heart failure) Nontraumatic intramuscular hematoma Hematoma of left thigh (Acute) Mechanical heart valve present (Acute) Encounter for pre-operative examination Asthmatic bronchitis Acute bronchitis Pleural effusion Abnormal chest CT Dysphagia Pneumonia Acute on chronic diastolic HF (heart failure) Shortness of breath (Acute) Atypical chest pain (Acute) Hypoxia (Acute) Chronic heart failure with preserved ejection fraction (HFpEF) History of loop recorder Recurrent syncope Syncope (Acute) UTI (urinary tract infection) DVT prophylaxis Hypothyroidism CKD (chronic kidney disease), stage III Recurrent syncope (Acute) Contusion of scalp (Acute) Hypokalemia (Acute) Dehydration (Acute) Substernal chest pain (Acute) Elevated INR (Acute) Status post total right knee replacement Knee pain Tricompartment degenerative joint disease of knee Knee effusion, left (Acute) A-fib (Chronic) Mitral valve replaced (Chronic) Hemangioma (Acute) Syncope (Acute) Closed head injury (Acute) Forehead laceration (Acute) Burn of hand, right (Acute) VICKY (acute kidney injury) (Acute) Pre-syncope Acute renal failure Severe protein-calorie malnutrition Gant classified according to extent of body surface involved Atrial fibrillation Coronary artery disease Mechanical heart valve present History of CVA (cerebrovascular accident) Diabetes type 2, controlled Hypothyroidism DVT prophylaxis Discharge planning issues Hematoma Rheumatic disease of heart valve H/O mitral valve replacement with mechanical valve Leg edema Post-concussion headache Slurred speech (Acute) Numbness (Acute) Encounter for pre-operative examination Degenerative joint disease of left knee Acute blood loss as cause of postoperative anemia DVT prophylaxis S/P TKR (total knee replacement) Pain, joint, knee, left Hemarthrosis involving knee joint Discharge planning issues Anemia chronic; baseline hgb 9-10 range per chart review Medical History History of blood transfusion autologous s/p MVR (1993), 09/2018 (post-op) A-fib 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 migraine vs. stress related)-- plavix since discontinued Anxiety Restless legs syndrome Migraines Diabetes diet controlled HTN (hypertension) Surgical History History of cardiac cath 2000= NO STENTS History of total left knee replacement History of colonoscopy Hx of tubal ligation Hx of appendectomy History of tonsillectomy and adenoidectomy Hx of cholecystectomy Hx of mitral valve replacement 1993 (rheumatic valvular disease) H/O: hysterectomy H/O radioactive iodine thyroid ablation Family History Uncle , of [place] in his 40s Coronary heart disease Social History Smoking Status: Never smoker Second Hand Exposure: No; Do You Dip or Chew Tobacco: No; Hx Alcohol Use: Yes Alcohol type: wine Hx Substance Use: No Preferred Language: Bengali Communication Ability: Effective Communication Ability Comment: speech impediment, easily understood 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 current occupational status: disabled How many Children do You have: 0 Feels Safe at Home: Yes Assistive Devices: Oxygen - at Night and Walker Review of Systems A total of 10 systems reviewed and were otherwise negative Physical Exam Vital Signs Vital Signs - 24 hr 06/09/24 19:33 06/09/24 21:34 06/09/24 22:00 Temperature 36.6 C Temperature Source Temporal Artery Scan Pulse Rate 74 Pulse Rate [Apical] 70 53 L Pulse Rhythm [Apical] Regular Pulse Strength [Apical] Respiratory Rate 18 18 15 Respiratory Effort / Characteristics Non-Labored Spontaneous Respiratory Depth Normal Respiratory Pattern Regular Blood Pressure 130/70 Blood Pressure [Right Arm] 128/77 122/63 Blood Pressure Mean 90 Blood Pressure Mean [Right Arm] 94 82 Blood Pressure Position Sitting Blood Pressure Position [Right Arm] Pulse Oximetry 99 100 100 Oxygen Delivery Method Room Air Room Air Room Air Sepsis Recent Fever Within 48 Hours No Sepsis New/Unexplained Change in Mental Status N/A Sepsis Action Taken by Nursing No Action Required 06/10/24 01:00 06/10/24 01:06 06/10/24 03:00 Temperature Temperature Source Pulse Rate 64 Pulse Rate [Apical] 57 L 69 Pulse Rhythm [Apical] Regular Pulse Strength [Apical] Normal Respiratory Rate 18 20 Respiratory Effort / Characteristics Non-Labored Spontaneous Respiratory Depth Normal Respiratory Pattern Regular Blood Pressure Blood Pressure [Right Arm] 116/57 L 115/60 Blood Pressure Mean Blood Pressure Mean [Right Arm] 76 78 Blood Pressure Position Blood Pressure Position [Right Arm] Lying Pulse Oximetry 97 95 Oxygen Delivery Method Room Air Room Air Sepsis Recent Fever Within 48 Hours Sepsis New/Unexplained Change in Mental Status Sepsis Action Taken by Nursing 06/10/24 03:36 Temperature Temperature Source Pulse Rate Pulse Rate [Apical] Pulse Rhythm [Apical] Pulse Strength [Apical] Respiratory Rate Respiratory Effort / Characteristics Respiratory Depth Respiratory Pattern Blood Pressure Blood Pressure [Right Arm] Blood Pressure Mean Blood Pressure Mean [Right Arm] Blood Pressure Position Blood Pressure Position [Right Arm] Pulse Oximetry Oxygen Delivery Method Room Air Sepsis Recent Fever Within 48 Hours Sepsis New/Unexplained Change in Mental Status Sepsis Action Taken by Nursing VITALS: Vitals are noted on the nurse's note and reviewed by myself. Vital signs stable. GENERAL: Pleasant female with date night caregiver present, in no acute distress, nondiaphoretic, well-developed well-nourished. SKIN: Capillary reflex less than 2 seconds. HEENT: Normocephalic. PERRLA. EOMI. Nares patent. Mucous membranes moist. Neck is supple without nuchal rigidity. HEART: Regular rate and rhythm LUNGS: Clear to auscultation bilaterally without wheezes, rales or rhonchi. No retractions or accessory muscle use. ABDOMEN: Positive bowel sounds x 4. Normal tympanic percussion. Soft, nontender, without masses or organomegaly. Cannon sign negative. No guarding or rebound tenderness. no CVA tenderness exam: Normal external female genitalia, minimal bleeding coming from the right vaginal wall. Bimanual exam nontender. Wood Ski Maker of nurse Moris present MUSCULOSKELETAL: No gross musculoskeletal defects. NEURO: Patient was alert and oriented to person place and time. No focal neurological deficits. Course Administered Medications Discontinued Medications Ferric Subsulfate (Ferric Subsulfate 8 Ml Vial) 8 ml TOP ONCE ONE Stop: 06/10/24 02:55 Last Admin: 06/10/24 03:29 Dose: 8 ml Documented By: RUSSELL Ceftriaxone Sodium (Rocephin) 1,000 mg in 50 mls @ 100 mls/hr IV NOW STA Stop: 06/10/24 00:57 Last Infusion: 06/10/24 01:39 Dose: Infused Documented By: Admin: 06/10/24 01:03 Dose: 100 mls/hr Documented By: SEAN Medical Decision Making Medical Records Attestation: I reviewed the patient's medical records. Home Medications Current Medication List: was personally reviewed by me Laboratory Data Attestation: I reviewed the patient's lab results. 06/09/24 20:20 06/09/24 20:20 Lab Results 06/09/24 06/09/24 Range/Units 20:20 21:57 WBC 6.79 (4.8-10.8) K/ul RBC 4.50 (4.20-5.40) M/uL Hgb 12.6 (12.0-16.0) g/dl Hct 39.6 (37.0-47.0) % MCV 88.0 (80.0-100.0) fL MCH 28.0 (25.0-34.0) pg MCHC 31.8 L (32.0-36.0) g/dL RDW Std Deviation 51.4 H (36.4-46.3) fL RDW Coeff of Courtney 15.9 H (11.5-14.5) % Plt Count 144 (130-400) K/uL MPV 11.3 (9.4-12.4) fL PT 38.8 H (9.0-12.0) Seconds INR 4.0 H (0.9-1.1) APTT 53 H (21-31) Seconds PTT Ratio 2.0 Sodium 136 (136-145) mmol/L Potassium 3.7 (3.5-5.1) mmol/L Chloride 98 (98-107) mmol/L Carbon Dioxide 33 H (21-32) mmol/L Anion Gap 5 (3-11) BUN 27 H (6-23) mg/dl Creatinine 1.87 H (0.6-1.2) mg/dl Est Cr Clr Drug Dosing 23.1 ml/min eGFR 28.60 BUN/Creatinine Ratio 14.4 (10-20) Glucose 111 H (70-99(Fasting)) mg/dl Calcium 10.3 (8.6-10.3) mg/dl Urine Color Yellow Urine Appearance Clear (Clear) Urine pH 7.0 (4.5-7.5) Ur Specific [place] 1.008 (1.000-1.030) Urine Protein Trace H (Negative) Urine Glucose (UA) 2+ H (Negative) Urine Ketones Negative (Negative) Urine Blood Trace H (Negative) Urine Nitrite Positive A (Negative) Urine Bilirubin Negative (Negative) Urine Urobilinogen Negative (Negative) Ur Leukocyte Esterase 2+ H (Negative) Urine WBC (Auto) >50 H (0-5) /hpf Urine RBC (Auto) 0-2 (0-2) /hpf U Hyaline Cast (Auto) 0-2 (0-2) /lpf U Epithel Cells (Auto) 0-2 (0-2) /hpf Urine Bacteria (Auto) 4+ H (None Seen) Blood Type A Positive Antibody Screen NEGATIVE Imaging Data Attestation: I personally reviewed and interpreted this imaging study as follows: Radiologist's Impression: Pelvis Ultrasound 06/09/24 22:12 EXAM: US pelvic complete CLINICAL HISTORY: Vaginal bleeding, recent painful intercourse TECHNIQUE: Ultrasound examination of the pelvis was performed in real time and duplex using trans-abdominal and transvaginal approaches. The vascular flow was evaluated using color flow. COMPARISON: 06/02/2016 FINDINGS: Uterus: Post hysterectomy. There is midline area of increased vascularity seen posterior to vaginal wall, it measures 3.3 x 1.7 x 2.7 cm, could be within bowel loop. Vaginal canal is separately visualized and appear unremarkable. Ovaries: Both ovaries are not visualized. Adnexa: Right adnexa- Two ovoid hypoechoic areas seen in the right adnexa could be a fluid bowel loop/prominent lymph nodes. Left adnexa-Prominent veins adjacent to vaginal canal on left, raises the suspicion for prlvic congredstion syndrome. Bladder: Urinary bladder: Partially filled. No evidence of intraluminal stones. Additional Findings: Absence of pelvic free fluid. IMPRESSION: 1. Status post hysterectomy.(stable) 2. Midline hypervascular area posterior to vaginal canal, could be within bowel. (new) 3. Both ovaries are not visualized(stable) 4. Suspected fluid-filled bowel loops/prominent lymph nodes in right adnexa(new). 5. Pelvic congestion in the left adnexa(new) 6. Further evaluation with CT/MRI is recommended if clinically warranted. RECOMMENDATIONS: Clinical correlation with symptoms and further evaluation as indicated. Electronically signed by Vikas Huertas 06-10-2024 01:28 AM Abdomen/Pelvis CT 06/10/24 00:36 EXAM: CT abd pelvis wo con CLINICAL HISTORY: lower abd pain, vag bleeding, ? mass TECHNIQUE: Contiguous axial images were obtained from the level of the diaphragm to the pubic symphysis without intravenous or oral contrast. Coronal and sagittal reconstructions were likewise performed and indicated to increase the sensitivity for detecting clinically relevant pathology. CT scan was performed according to ALARA (as low as reasonably achievable). COMPARISON: CT abdominal angiography dated 07 December 2017. FINDINGS: Moderate to gross cardiomegaly detected. Evaluation of the abdominal and pelvic visceral organs is limited without intravenous contrast. Fecal loading with gaseous distension of the large bowel is noted. Few uncomplicated sigmoid and descending colonic diverticuli noted. Tiny calcified splenic granulomas seen. Inferior vena cava, its major tributaries are dilated. Maximum diameter of the suprarenal and infrarenal inferior vena cava measures 3.2 cm and 2.9 cm respectively. Suspicious fullness in perineal region anterior to anal canal. The unenhanced liver is grossly unremarkable. Gallbladder is not visualized, cholecystectomy status. The unenhanced pancreas is grossly unremarkable. The adrenal glands are grossly unremarkable. The kidneys are normal in size. There is no hydronephrosis. No perinephric stranding is seen. The ureters are normal in caliber. No evidence of focal or diffuse bowel wall thickening or evidence of bowel obstruction is seen. The urinary bladder is normal in contour. No adenopathy or fluid collections are seen. Pelvic viscera are grossly unremarkable. The aorta is normal in caliber. No aggressive appearing osseous lesions are identified. Rest of the findings are unchanged. IMPRESSION: 1. Moderate to gross cardiomegaly detected. Mildly progressed compared to the previous study. 2. Fecal loading with gaseous distension of the large bowel is noted. 3. Few uncomplicated sigmoid and descending colonic diverticuli noted. Stable. 4. Tiny calcified splenic granulomas seen. 5. Inferior vena cava, its major tributaries are dilated. Maximum diameter of the suprarenal and infrarenal inferior vena cava measures 3.2 cm and 2.9 cm respectively. Similar findings are also noted in the previous study. 6. Suspicious fullness in perineal region anterior to anal canal. Suggested: Clinical examination and MRI of the pelvis is suggested for better evaluation if clinically indicated. Electronically signed by John Puente 06-10-2024 02:22 AM MDM Narrative Prior records/ancillary studies reviewed. Triage Nursing notes reviewed. Additional history obtained from the family. The patient's history was concerning for vaginal bleeding after intercourse Differential diagnosis: Etiologies such as vaginal irritation, vaginal laceration, dehiscence, bleeding dyscrasia, trauma, infection, as well as others were entertained. Physical examination: As above. Vitals signs revealed stable. ER treatment provided: Patient declined pain meds Rocephin was ordered for UTI On reassessment the patient felt better. Diagnostic interpretation by me: The labs Independently Interpreted by myself revealed stable H&H. INR 4.0. Patient's INR ranges to be 3-3-1/2 Urine concern for infection sent for culture. Prior culture was reviewed [facility] [address] [facility] [place] [address] / Director: Ester Chua M.D. Clinical Laboratory Report Name: KEZIAALCIDES Elisha Acct: [id number] Status: DIS IN : [address] [facility] [place] Date: 07/09/23 Age: 68 Sex: F Dis Date: 07/14/23 Loc: Telemetry [address] [place] [address]/Bed: E214-1 Spec: [id number] Collected: 07/09/23 Received: 07/09/[address]: Cee Trevino MD Source: Urine,Clean Catch OV Order: Ordered: Urine Culture Procedure Result Verified Site Urine Culture Final 07/11/23-112 Organism 1 Klebsiella pneumoniae [place] Count >100,000 CFU/ml Sens Sensitivities to Follow Kleb pneum RX M.I.C. --- --------- Amox/Clav S <=8/4 Amp/Sul S <=8/4 Cefazolin S <=2 Cefepime S <=2 Ceftriaxone S <=1 Ciprofloxacin S <=0.25 Ertapenem S <=0.5 Gentamicin S <=4 Levofloxacin S <=0.5 Meropenem S <=1 Nitrofurantoin S <=32 Tobramycin S <=4 Trimeth/Sulfa S <=2/38 Pip/Tazo S <=16 S = SENSITIVE I = INTERMEDIATE R = RESISTANT Imaging studies: Ultrasound was reviewed and read by radiology Consultation: A consultation was placed with the art therapist physician, Dr. Moreno. The case was discussed and diagnostics were reviewed. She did evaluate the patient.. Consultation was placed with medicine and the case was discussed. Patient was admitted to the medical service. This appears to be consistent with vaginal bleeding from vaginal injury along with UTI and supratherapeutic INR. Patient was given antibiotics and prior urine culture was reviewed. OB did evaluate the patient and did attend to the vaginal injury. Medicine was consulted and case was discussed. She will be admitted to the medical service and patient is agreeable. By the evaluation outlined above emergent etiologies such as bleeding dyscrasia, as well as others were deemed relatively unlikely. The pt informed about the findings as listed above. All questions were answered and pleased with the treatment. The chart was completed utilizing [employer] Speech voice recognition software. Grammatical errors, random word insertions, pronoun errors, and incomplete sentences are an occassional consequence of this system due to software limitations, ambient noise, and hardware issues. Any formal questions or concerns about the content, text, or information contained within the body of this dictation should be directly addressed to the physician assistant general manager for clarification. Impression & Plan Vagina bleeding, Supratherapeutic INR, Acute UTI Discharge Plan Visit Data Chief Complaint: Vaginal Bleeding Stated Complaint: VAG BLEEDING ED Provider: Lindsey Bhakta ED Midlevel Provider: Lupe Peñaloza Discharge Problem: Vagina bleeding, Supratherapeutic INR, Acute UTI Patient Disposition: Admitted As Inpatient Condition: Good Forms Stand Alone Forms: [employer] Prescriptions Prescriptions: No Action (DME) Oxygen Home Liters Per Minute See Rx Instructions .Route Qty: 1 0RF Rx Instructions: Nocturnal oxygen at 2lpm vial NC/ Stationary concentrator/ LON99 (DME) Oxygen Home Liters Per Minute See Rx Instructions .Route Qty: 2 0RF Rx Instructions: Oxygen himidification and supplies -LON99 Combivent Respimat 20-100 mcg/actuation mist 1 puff INHALATION QID PRN (Reason: Shortness Of Breath) Qty: 12 2RF ipratropium-albuterol 0.5 mg-3 mg(2.5 mg base)/3 mL solution for nebulization 3 ml INHALATION QID PRN (Reason: shortness of breath or wheezing) Qty: 1080 0RF (DME) Incentive Spirometer Misc See Rx Instructions .MEDSUPPLY Qty: 1 0RF Rx Instructions: As directed levothyroxine 100 mcg tablet 100 mcg PO DAILYBB folic acid 1 mg Tablet 1 mg PO QAM Qty: 30 0RF ropinirole 2 mg tablet 2 mg PO TID spironolactone 25 mg Tablet 12.5 mg PO QAM nitroglycerin [Nitrostat] 0.4 mg Tablet, Sublingual 0.4 mg Sublingual DIRECTED PRN (Reason: Chest Pain) omeprazole 20 mg Capsule,Delayed Release(Dr/Ec) 20 mg PO QAM cholecalciferol (vitamin D3) [Vitamin D3] 1,000 unit Capsule 1,000 unit PO Q OTHER DAY citalopram 10 mg tablet 10 mg PO QAM tramadol 50 mg tablet 50 mg PO Q6 PRN (Reason: .severe breakthrough pain) Rx Instructions: left leg pain azelastine 137 mcg (0.1 %) aerosol,spray 2 spray INTRANASAL AMHS valacyclovir 1 gram tablet 2,000 mg PO AMPM PRN (Reason: Cold Sores) nystatin 100,000 unit/mL suspension 5 ml mucous membrane QID PRN (Reason: THRUSH) warfarin 2.5 mg tablet 2.5 mg PO DIRECTED acetaminophen [Tylenol Extra Strength] 500 mg Tablet 500 mg PO Q6H PRN (Reason: Pain) lidocaine HCl 4 % (40 mg/mL) solution 1 applic mucous membrane DIRECTED PRN (Reason: MOUTH ULCERS) albuterol sulfate 90 mcg/actuation HFA aerosol inhaler 2 puff INHALATION Q4H PRN (Reason: COUGH/SHORT OF BREATH/WHEEZING) metoclopramide HCl [Reglan] 10 mg Tablet 10 mg PO DAILYBB PRN (Reason: Nausea) Rx Instructions: administer 30 minutes before meals buprenorphine 5 mcg/hour patch weekly 5 mcg transdermal WK Jardiance 10 mg Tablet 10 mg PO QAM Hold Instructions: Resume on 07/22/23. Discuss with primary care doctor and cardiology before resuming benzonatate 100 mg capsule 100 mg PO TID PRN (Reason: cough) metoprolol succinate 50 mg Tablet Extended Release 24 Hr 50 mg PO QAM Qty: 30 0RF metoprolol succinate 25 mg tablet extended release 24 hr 25 mg PO HS Rx Instructions: Please take 1 tablet each night torsemide 100 mg Tablet 50 mg PO .DAILY IN AFTERNOON Rx Instructions: 3pm potassium chloride 10 mEq tablet extended release 20 meq PO BID torsemide 100 mg tablet 100 mg PO QAM rosuvastatin 10 mg tablet 10 mg PO QAM Referrals Referrals: Shara Ray MD [Primary Care Provider] -
[2024-06-09 22:24] LABS: Appearance Urine Clear (Clear); Bacteria Urine Automated 4+ (None Seen); Bilirubin Urine Negative (Negative); Blood Urine Trace (Negative); Cast Urine Automated 0-2 /lpf (0-2); Color Urine Yellow; Epithelial Cell Urine Auto 0-2 /hpf (0-2); Glucose Urine UA 2+ (Negative); Ketones Urine Negative (Negative); Leukocyte Esterase Urine 2+ (Negative); Nitrite Urine Positive (Negative); Protein Urine Trace (Negative); RBC Urine Automated 0-2 /hpf (0-2); Specific Gravity Urine 1.008 (1.000-1.030); Urobilinogen Urine Negative (Negative); WBC Urine Automated >50 /hpf (0-5)
[2024-06-09 22:25] LABS: Partial Thromboplastin Time 53 Seconds (21-31); Prothrombin Time 38.8 Seconds (9.0-12.0)
[2024-06-10] MEDS: cefTRIAXone SODIUM 1,000 MG/50 ML BAG IV STA (01:03)
--- NOTE | 2024-06-10 01:13 | Emergency Department Note ---
ED Visit Note I was consulted by the Advanced Practice Provider. I personally made/approved the management plan and take responsibility for the patient management. This includes the aspects of: -History/Physical -MDM .
--- NOTE | 2024-06-10 01:28 | Ultrasound Report ---
EXAM: US pelvic complete CLINICAL HISTORY: Vaginal bleeding, recent painful intercourse TECHNIQUE: Ultrasound examination of the pelvis was performed in real time and duplex using trans-abdominal and transvaginal approaches. The vascular flow was evaluated using color flow. COMPARISON: 06/02/2016 FINDINGS: Uterus: Post hysterectomy. There is midline area of increased vascularity seen posterior to vaginal wall, it measures 3.3 x 1.7 x 2.7 cm, could be within bowel loop. Vaginal canal is separately visualized and appear unremarkable. Ovaries: Both ovaries are not visualized. Adnexa: Right adnexa- Two ovoid hypoechoic areas seen in the right adnexa could be a fluid bowel loop/prominent lymph nodes. Left adnexa-Prominent veins adjacent to vaginal canal on left, raises the suspicion for prlvic congredstion syndrome. Bladder: Urinary bladder: Partially filled. No evidence of intraluminal stones. Additional Findings: Absence of pelvic free fluid. IMPRESSION: 1. Status post hysterectomy.(stable) 2. Midline hypervascular area posterior to vaginal canal, could be within bowel. (new) 3. Both ovaries are not visualized(stable) 4. Suspected fluid-filled bowel loops/prominent lymph nodes in right adnexa(new). 5. Pelvic congestion in the left adnexa(new) 6. Further evaluation with CT/MRI is recommended if clinically warranted. RECOMMENDATIONS: Clinical correlation with symptoms and further evaluation as indicated. Electronically signed by Vikas Huertas 06-10-2024 01:28 AM
--- NOTE | 2024-06-10 02:27 | CT Scan Report ---
EXAM: CT abd pelvis wo con CLINICAL HISTORY: lower abd pain, vag bleeding, ? mass TECHNIQUE: Contiguous axial images were obtained from the level of the diaphragm to the pubic symphysis without intravenous or oral contrast. Coronal and sagittal reconstructions were likewise performed and indicated to increase the sensitivity for detecting clinically relevant pathology. CT scan was performed according to ALARA (as low as reasonably achievable). COMPARISON: CT abdominal angiography dated 07 December 2017. FINDINGS: Moderate to gross cardiomegaly detected. Evaluation of the abdominal and pelvic visceral organs is limited without intravenous contrast. Fecal loading with gaseous distension of the large bowel is noted. Few uncomplicated sigmoid and descending colonic diverticuli noted. Tiny calcified splenic granulomas seen. Inferior vena cava, its major tributaries are dilated. Maximum diameter of the suprarenal and infrarenal inferior vena cava measures 3.2 cm and 2.9 cm respectively. Suspicious fullness in perineal region anterior to anal canal. The unenhanced liver is grossly unremarkable. Gallbladder is not visualized, cholecystectomy status. The unenhanced pancreas is grossly unremarkable. The adrenal glands are grossly unremarkable. The kidneys are normal in size. There is no hydronephrosis. No perinephric stranding is seen. The ureters are normal in caliber. No evidence of focal or diffuse bowel wall thickening or evidence of bowel obstruction is seen. The urinary bladder is normal in contour. No adenopathy or fluid collections are seen. Pelvic viscera are grossly unremarkable. The aorta is normal in caliber. No aggressive appearing osseous lesions are identified. Rest of the findings are unchanged. IMPRESSION: 1. Moderate to gross cardiomegaly detected. Mildly progressed compared to the previous study. 2. Fecal loading with gaseous distension of the large bowel is noted. 3. Few uncomplicated sigmoid and descending colonic diverticuli noted. Stable. 4. Tiny calcified splenic granulomas seen. 5. Inferior vena cava, its major tributaries are dilated. Maximum diameter of the suprarenal and infrarenal inferior vena cava measures 3.2 cm and 2.9 cm respectively. Similar findings are also noted in the previous study. 6. Suspicious fullness in perineal region anterior to anal canal. Suggested: Clinical examination and MRI of the pelvis is suggested for better evaluation if clinically indicated. Electronically signed by John Puente 06-10-2024 02:22 AM
[2024-06-10] MEDS: FERRIC SUBSULFATE 8 ML VIAL TOP ONE (03:29)
--- NOTE | 2024-06-10 03:37 | OB/GYN Consultation ---
Date of Consultation June 10, 2024 Assessment & Plan (1) Supratherapeutic INR: (2) Vagina bleeding: (3) Vaginal atrophy: (4) Postmenopausal postcoital bleedin-year-old G0 postmenopausal female status post hysterectomy, presenting today with postcoital bleeding, from atrophy of vagina, Speculum exam revealed minimal oozing from vaginal cuff/posterior vaginal area which was stopped with Monsel solution on Q-tips, see exam for details, Patient is being admitted to medicine to adjust her Coumadin dose and INR levels, plan per medicine. History of Present Illness History of Present Illness Patient is a 68-year-old G0 postmenopausal female who presented to the ER with vaginal bleeding for the last few days. She states she had sexual intercourse about a week ago with her partner and she was dry and did not use enough lubricant. She started to have vaginal bleeding since then. It has been off and on, sometimes light sometimes with small clots. She has been on Coumadin for heart valve replacement. her INR is 4 here. she is being admitted to medicine to adjust her Coumadin dose and INR. I was called To help to stop the oozing from vaginal cuff which was noted by her ER provider here JOSÉ MIGUEL Alvares. patient denies any pelvic pain or vaginal discomfort. She states she had hysterectomy and everything was removed when she was 16?, she was told that she has A-fib and she did not have babies she was also having heavy period and she was recommended to have hysterectomy and she accepted. No records. She has not used any hormone replacement therapy since then. She been with same partner for the last 6 years. Denies any history of STDs. Allergies Allergy/AdvReac Type Severity Reaction Status Date / Time budesonide Allergy Severe could not Verified 05/12/24 04:17 breath hydroxyzine Allergy Severe DYSTONIA Verified 05/12/24 04:17 prochlorperazine Allergy Severe NUCHAL Verified 05/12/24 04:17 DYSTONIA promethazine Allergy Severe NUCHAL Verified 05/12/24 04:17 DYSTONIA enoxaparin [From Lovenox] Allergy Unknown ON Verified 05/12/24 04:17 [facility] Inhibitors AdvReac Intermediate COUGH Verified 05/12/24 04:17 gabapentin AdvReac Intermediate CONFUSION/D Verified 05/12/24 04:17 ROWSY lisinopril AdvReac Intermediate Cough Verified 05/12/24 04:17 metformin AdvReac Intermediate DIARRHEA Verified 05/12/24 04:17 oxycodone AdvReac Intermediate NUMB ALL Verified 05/12/24 04:17 OVER parsley AdvReac Intermediate AGITATION Verified 05/12/24 04:17 tetracycline AdvReac Intermediate NAUSEA/VOMI Verified 05/12/24 04:17 TING steroids Allergy Mild Unknown Uncoded 05/12/24 04:17 NAUSEA MEDICINES Allergy Unknown SEE NOTE Uncoded 05/12/24 04:17 BELOW Home Medications Medication Instructions Recorded Confirmed Type cholecalciferol (vitamin D3) 25 1,000 unit PO Q OTHER DAY 12/05/17 06/10/24 History mcg (1,000 unit) capsule (Vitamin D3) nitroglycerin 0.4 mg sublingual 0.4 mg sublingual DIRECTED PRN 12/05/17 06/10/24 History tablet (Nitrostat) Chest Pain omeprazole 20 mg capsule,delayed 20 mg PO QAM 12/05/17 06/10/24 History release levothyroxine 100 mcg tablet 100 mcg PO DAILYBB 05/18/18 06/10/24 History folic acid 1 mg tablet 1 mg PO QAM #30 tabs 05/21/18 06/10/24 Rx spironolactone 25 mg tablet 12.5 mg PO QAM 12/31/19 06/10/24 History citalopram 10 mg tablet 10 mg PO QAM 07/18/21 06/10/24 History tramadol 50 mg tablet 50 mg PO Q6 PRN .severe 07/18/21 06/10/24 History breakthrough pain azelastine 137 mcg (0.1 %) nasal 2 spray intranasal AMHS 08/02/21 06/10/24 History spray ropinirole 2 mg tablet 2 mg PO TID 09/01/21 06/10/24 History Incentive Spirometer #1 ea 09/05/21 06/10/24 Rx valacyclovir 1 gram tablet 2,000 mg PO AMPM PRN Cold Sores 11/30/21 06/10/24 History Oxygen Home #1 ea 04/08/23 06/10/24 Rx Oxygen Home #2 ea 05/03/23 06/10/24 Rx acetaminophen 500 mg tablet 500 mg PO Q6H PRN Pain 07/09/23 06/10/24 History (Tylenol Extra Strength) albuterol sulfate 90 mcg/actuation 2 puff inhalation Q4H PRN 07/09/23 06/10/24 History aerosol inhaler COUGH/SHORT OF BREATH/WHEEZING benzonatate 100 mg capsule 100 mg PO TID PRN cough 07/09/23 06/10/24 History buprenorphine 5 mcg/hour weekly 5 mcg transdermal WK 07/09/23 06/10/24 History transdermal patch empagliflozin 10 mg tablet 10 mg PO QAM 07/09/23 06/10/24 History (Jardiance) lidocaine HCl 4 % (40 mg/mL) 1 applic mucous membrane 07/09/23 06/10/24 History mucosal solution DIRECTED PRN MOUTH ULCERS metoclopramide HCl 10 mg tablet 10 mg PO DAILYBB PRN Nausea 07/09/23 06/10/24 History (Reglan) nystatin 100,000 unit/mL oral 5 ml mucous membrane QID PRN THRUSH 07/09/23 06/10/24 History suspension warfarin 2.5 mg tablet 2.5 mg PO DIRECTED 07/09/23 06/10/24 History metoprolol succinate 50 mg 50 mg PO QAM #30 tabs 07/14/23 06/10/24 Rx tablet,extended release 24 hr ipratropium 20 mcg-albuterol 100 1 puff inhalation QID PRN 11/04/23 06/10/24 Rx mcg/actuation mist for inhalation Shortness Of Breath #12 grams (Combivent Respimat) ipratropium 0.5 mg-albuterol 3 mg 3 ml inhalation QID PRN shortness 05/05/24 06/10/24 Rx (2.5 mg base)/3 mL nebulization of breath or wheezing #1,080 mL soln metoprolol succinate 25 mg 25 mg PO HS 05/12/24 06/10/24 History tablet,extended release 24 hr potassium chloride 10 mEq 20 meq PO BID 05/12/24 06/10/24 History tablet,extended release torsemide 100 mg tablet 50 mg PO .DAILY IN AFTERNOON 05/12/24 06/10/24 History rosuvastatin 10 mg tablet 10 mg PO QAM 06/10/24 06/10/24 History torsemide 100 mg tablet 100 mg PO QAM 06/10/24 06/10/24 History Patient History Medical History History of blood transfusion autologous s/p MVR (1993), 09/2018 (post-op) A-fib 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 migraine vs. stress related)-- plavix since discontinued Anxiety Restless legs syndrome Migraines Diabetes diet controlled HTN (hypertension) Surgical History History of cardiac cath 2000= NO STENTS History of total left knee replacement History of colonoscopy Hx of tubal ligation Hx of appendectomy History of tonsillectomy and adenoidectomy Hx of cholecystectomy Hx of mitral valve replacement 1993 (rheumatic valvular disease) H/O: hysterectomy H/O radioactive iodine thyroid ablation Family History Uncle , of [place] in his 40s Coronary heart disease Social History Smoking Status: Never smoker Second Hand Exposure: No; Do You Dip or Chew Tobacco: No; Hx Alcohol Use: Yes Alcohol type: wine Hx Substance Use: No Preferred Language: Uzbek Communication Ability: Effective Communication Ability Comment: speech impediment, easily understood Community Development Director Required: No Beliefs That Will Affect Care: Buddhism Buddhism Beliefs: Religion marital status: Single Current Living Situation: Alone Current Living Situation Comment: from home with health care manager. current occupational status: disabled How many Children do You have: 0 Feels Safe at Home: Yes Assistive Devices: Oxygen - at Night and Walker Review of Systems Constitutional: as per Subjective / HPI Physical Exam Constitutional: WD/WN, vitals as above + thin and + frail appearing Genitourinary: normal external appearance ( except physiologic vulvar atrophy) Speculum/Bimanual Exam: + enterocele, + atrophic vaginal mucosa and + vaginal bleeding ( minimal oozing at the cuff, post.vagina, Monsel solution applied, stop b) minimal oozing at the vaginal cuff/posterior vagina area was controlled with Monsel solution which was applied on a coronel swab large Q-tips x 3. Patient tolerated procedure well and Q-tips were removed without difficulty. Results & Data Vital Signs (Past 12 Hours) Vital Signs Temp Pulse Pulse Resp BP BP Pulse Ox 06/10/24 01:06 64 06/10/24 01:00 57 L 18 116/57 L 97 06/09/24 22:00 53 L 15 122/63 100 06/09/24 21:34 70 18 128/77 100 06/09/24 19:33 36.6 C 74 18 130/70 99 O2 Del Method 06/10/24 01:06 06/10/24 01:00 Room Air 06/09/24 22:00 Room Air 06/09/24 21:34 Room Air 06/09/24 19:33 Room Air Laboratory Results Lab Results 06/09/24 06/09/24 Range/Units 20:20 21:57 WBC 6.79 (4.8-10.8) K/ul RBC 4.50 (4.20-5.40) M/uL Hgb 12.6 (12.0-16.0) g/dl Hct 39.6 (37.0-47.0) % MCV 88.0 (80.0-100.0) fL MCH 28.0 (25.0-34.0) pg MCHC 31.8 L (32.0-36.0) g/dL RDW Std Deviation 51.4 H (36.4-46.3) fL RDW Coeff of Courtney 15.9 H (11.5-14.5) % Plt Count 144 (130-400) K/uL MPV 11.3 (9.4-12.4) fL PT 38.8 H (9.0-12.0) Seconds INR 4.0 H (0.9-1.1) APTT 53 H (21-31) Seconds PTT Ratio 2.0 Sodium 136 (136-145) mmol/L Potassium 3.7 (3.5-5.1) mmol/L Chloride 98 (98-107) mmol/L Carbon Dioxide 33 H (21-32) mmol/L Anion Gap 5 (3-11) BUN 27 H (6-23) mg/dl Creatinine 1.87 H (0.6-1.2) mg/dl Est Cr Clr Drug Dosing 23.1 ml/min eGFR 28.60 BUN/Creatinine Ratio 14.4 (10-20) Glucose 111 H (70-99(Fasting)) mg/dl Calcium 10.3 (8.6-10.3) mg/dl Urine Color Yellow Urine Appearance Clear (Clear) Urine pH 7.0 (4.5-7.5) Ur Specific [place] 1.008 (1.000-1.030) Urine Protein Trace H (Negative) Urine Glucose (UA) 2+ H (Negative) Urine Ketones Negative (Negative) Urine Blood Trace H (Negative) Urine Nitrite Positive A (Negative) Urine Bilirubin Negative (Negative) Urine Urobilinogen Negative (Negative) Ur Leukocyte Esterase 2+ H (Negative) Urine WBC (Auto) >50 H (0-5) /hpf Urine RBC (Auto) 0-2 (0-2) /hpf U Hyaline Cast (Auto) 0-2 (0-2) /lpf U Epithel Cells (Auto) 0-2 (0-2) /hpf Urine Bacteria (Auto) 4+ H (None Seen) Blood Type A Positive Antibody Screen NEGATIVE
--- NOTE | 2024-06-10 04:05 | History & Physical Report ---
Date of Service June 10, 2024 Assessment & Plan (1) Complicated UTI (urinary tract infection): Plan: Complicated UTI, no sepsis for now Postcoital vaginal bleeding In the setting of Coumadin coagulopathy hx SSS/rheumatic heart disease/history of mechanical MVR on Coumadin CAD chronic diastolic heart failure (EF 55%, TTE 2024), some congestion on x-ray severe TR status post recent Triclip procedure (02/2024, hypertension, stable hyperlipidemia, on statin Rx history embolic CVA as per records COPD, not in acute exacerbation esophageal dysmotility as per records DM2 diet-controlled, well-controlled as of recent hemoglobin A1c of 6.25 February 2024 hypothyroidism, recent outpatient TSH from last week improved at 5 from 10 last month CRI, creatinine at baseline chronic pain on Suboxone Admit to [facility] Urine CS, ceftriaxone Gynecology consult re: postcoital vaginal bleeding (Patient already seen at the ER by provider.) Hold aspirin and Coumadin until H&H stable May need vitamin K if with significant H&H drop ISS BG goal 1 10-1 40 DVT prophylaxis. Coumadin INR goal between 2.5-3.5 if H&H stable Full code Text document was generated using [employer] voice recognition software. It may contain grammatical or spelling errors. Kindly contact undersigned for clarification of any documentation item in question. History of Present Illness Chief Complaint: Vaginal bleeding Primary Care Provider: Shara Ray MD History obtained from patient and records. Medical history significant for chronic diastolic heart failure (EF 55%, TTE 2024), SSS/rheumatic heart disease/history of mechanical MVR on Coumadin, history of Linq insertion, CAD as per records, mild AR, severe TR status post Triclip procedure, hypertension, hyperlipidemia, history embolic CVA as per records, COPD, esophageal dysmotility as per records, DM2 diet-controlled, hypothyroidism, hyperparathyroidism as per records, CRI (baseline creatinine 1.6-2 as per records), RLS, chronic pain on Suboxone. Recent confinement last month for chest pain. Few days history of vaginal bleeding following sexual intercourse which was a little rough as per patient account. Patient passing blood clots. Tolerable achy lower abdominal pain. No fever, no chills. Denies headache, chest pain, SOB. IV ceftriaxone administered at the ER. 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 Allergies Allergy/AdvReac Type Severity Reaction Status Date / Time budesonide Allergy Severe could not Verified 05/12/24 04:17 breath hydroxyzine Allergy Severe DYSTONIA Verified 05/12/24 04:17 prochlorperazine Allergy Severe NUCHAL Verified 05/12/24 04:17 DYSTONIA promethazine Allergy Severe NUCHAL Verified 05/12/24 04:17 DYSTONIA enoxaparin [From Lovenox] Allergy Unknown ON Verified 05/12/24 04:17 [facility] Inhibitors AdvReac Intermediate COUGH Verified 05/12/24 04:17 gabapentin AdvReac Intermediate CONFUSION/D Verified 05/12/24 04:17 ROWSY lisinopril AdvReac Intermediate Cough Verified 05/12/24 04:17 metformin AdvReac Intermediate DIARRHEA Verified 05/12/24 04:17 oxycodone AdvReac Intermediate NUMB ALL Verified 05/12/24 04:17 OVER parsley AdvReac Intermediate AGITATION Verified 05/12/24 04:17 tetracycline AdvReac Intermediate NAUSEA/VOMI Verified 05/12/24 04:17 TING steroids Allergy Mild Unknown Uncoded 05/12/24 04:17 NAUSEA MEDICINES Allergy Unknown SEE NOTE Uncoded 05/12/24 04:17 BELOW Home Medications Medication Instructions Recorded Confirmed Type cholecalciferol (vitamin D3) 25 1,000 unit PO Q OTHER DAY 12/05/17 06/10/24 History mcg (1,000 unit) capsule (Vitamin D3) nitroglycerin 0.4 mg sublingual 0.4 mg sublingual DIRECTED PRN 12/05/17 06/10/24 History tablet (Nitrostat) Chest Pain omeprazole 20 mg capsule,delayed 20 mg PO QAM 12/05/17 06/10/24 History release levothyroxine 100 mcg tablet 100 mcg PO DAILYBB 05/18/18 06/10/24 History folic acid 1 mg tablet 1 mg PO QAM #30 tabs 05/21/18 06/10/24 Rx spironolactone 25 mg tablet 12.5 mg PO QAM 12/31/19 06/10/24 History citalopram 10 mg tablet 10 mg PO QAM 07/18/21 06/10/24 History tramadol 50 mg tablet 50 mg PO Q6 PRN .severe 07/18/21 06/10/24 History breakthrough pain azelastine 137 mcg (0.1 %) nasal 2 spray intranasal AMHS 08/02/21 06/10/24 History spray ropinirole 2 mg tablet 2 mg PO TID 09/01/21 06/10/24 History Incentive Spirometer #1 ea 09/05/21 06/10/24 Rx valacyclovir 1 gram tablet 2,000 mg PO AMPM PRN Cold Sores 11/30/21 06/10/24 History Oxygen Home #1 ea 04/08/23 06/10/24 Rx Oxygen Home #2 ea 05/03/23 06/10/24 Rx acetaminophen 500 mg tablet 500 mg PO Q6H PRN Pain 07/09/23 06/10/24 History (Tylenol Extra Strength) albuterol sulfate 90 mcg/actuation 2 puff inhalation Q4H PRN 07/09/23 06/10/24 History aerosol inhaler COUGH/SHORT OF BREATH/WHEEZING benzonatate 100 mg capsule 100 mg PO TID PRN cough 07/09/23 06/10/24 History buprenorphine 5 mcg/hour weekly 5 mcg transdermal WK 07/09/23 06/10/24 History transdermal patch empagliflozin 10 mg tablet 10 mg PO QAM 07/09/23 06/10/24 History (Jardiance) lidocaine HCl 4 % (40 mg/mL) 1 applic mucous membrane 07/09/23 06/10/24 History mucosal solution DIRECTED PRN MOUTH ULCERS metoclopramide HCl 10 mg tablet 10 mg PO DAILYBB PRN Nausea 07/09/23 06/10/24 History (Reglan) nystatin 100,000 unit/mL oral 5 ml mucous membrane QID PRN THRUSH 07/09/23 06/10/24 History suspension warfarin 2.5 mg tablet 2.5 mg PO DIRECTED 07/09/23 06/10/24 History metoprolol succinate 50 mg 50 mg PO QAM #30 tabs 07/14/23 06/10/24 Rx tablet,extended release 24 hr ipratropium 20 mcg-albuterol 100 1 puff inhalation QID PRN 11/04/23 06/10/24 Rx mcg/actuation mist for inhalation Shortness Of Breath #12 grams (Combivent Respimat) ipratropium 0.5 mg-albuterol 3 mg 3 ml inhalation QID PRN shortness 05/05/24 06/10/24 Rx (2.5 mg base)/3 mL nebulization of breath or wheezing #1,080 mL soln metoprolol succinate 25 mg 25 mg PO HS 05/12/24 06/10/24 History tablet,extended release 24 hr potassium chloride 10 mEq 20 meq PO BID 05/12/24 06/10/24 History tablet,extended release torsemide 100 mg tablet 50 mg PO .DAILY IN AFTERNOON 05/12/24 06/10/24 History rosuvastatin 10 mg tablet 10 mg PO QAM 06/10/24 06/10/24 History torsemide 100 mg tablet 100 mg PO QAM 06/10/24 06/10/24 History Past Med/Surg History Problem List (Updated 06/10/24 @ 07:10 by Justin Perez MD) Complicated UTI (urinary tract infection) Postmenopausal postcoital bleeding Vaginal atrophy Acute UTI (Acute) Supratherapeutic INR (Acute) Vagina bleeding (Acute) Elevated troponin (Acute) Substernal chest pain (Acute) Depression Elevated troponin Esophageal dysmotility Chronic pain COPD (chronic obstructive pulmonary disease) Chest pain Acute kidney injury superimposed on chronic kidney disease (Acute) Acute exacerbation of CHF (congestive heart failure) (Acute) Restrictive lung disease CHF (congestive heart failure) (Acute) Cough (Acute) Acute dyspnea (Acute) Acute foot pain (Acute) Supratherapeutic INR (Acute) Exertional shortness of breath Upper airway cough syndrome Chronic cough Occult blood positive stool H/O mitral valve replacement with mechanical valve Rheumatic heart disease Permanent atrial fibrillation History of CVA (cerebrovascular accident) Chronic diastolic CHF (congestive heart failure) Nontraumatic intramuscular hematoma Hematoma of left thigh (Acute) Mechanical heart valve present (Acute) Encounter for pre-operative examination Asthmatic bronchitis Acute bronchitis Pleural effusion Abnormal chest CT Dysphagia Pneumonia Acute on chronic diastolic HF (heart failure) Shortness of breath (Acute) Atypical chest pain (Acute) Hypoxia (Acute) Chronic heart failure with preserved ejection fraction (HFpEF) History of loop recorder Recurrent syncope Syncope (Acute) UTI (urinary tract infection) DVT prophylaxis Hypothyroidism CKD (chronic kidney disease), stage III Recurrent syncope (Acute) Contusion of scalp (Acute) Hypokalemia (Acute) Dehydration (Acute) Substernal chest pain (Acute) Elevated INR (Acute) Status post total right knee replacement Knee pain Tricompartment degenerative joint disease of knee Knee effusion, left (Acute) A-fib (Chronic) Mitral valve replaced (Chronic) Hemangioma (Acute) Syncope (Acute) Closed head injury (Acute) Forehead laceration (Acute) Burn of hand, right (Acute) VICKY (acute kidney injury) (Acute) Pre-syncope Acute renal failure Severe protein-calorie malnutrition Gant classified according to extent of body surface involved Atrial fibrillation Coronary artery disease Mechanical heart valve present History of CVA (cerebrovascular accident) Diabetes type 2, controlled Hypothyroidism DVT prophylaxis Discharge planning issues Hematoma Rheumatic disease of heart valve H/O mitral valve replacement with mechanical valve Leg edema Post-concussion headache Slurred speech (Acute) Numbness (Acute) Encounter for pre-operative examination Degenerative joint disease of left knee Acute blood loss as cause of postoperative anemia DVT prophylaxis S/P TKR (total knee replacement) Pain, joint, knee, left Hemarthrosis involving knee joint Discharge planning issues Anemia chronic; baseline hgb 9-10 range per chart review Medical History History of blood transfusion autologous s/p MVR (1993), 09/2018 (post-op) A-fib 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 migraine vs. stress related)-- plavix since discontinued Anxiety Restless legs syndrome Migraines Diabetes diet controlled HTN (hypertension) Surgical History History of cardiac cath 2000= NO STENTS History of total left knee replacement History of colonoscopy Hx of tubal ligation Hx of appendectomy History of tonsillectomy and adenoidectomy Hx of cholecystectomy Hx of mitral valve replacement 1993 (rheumatic valvular disease) H/O: hysterectomy H/O radioactive iodine thyroid ablation Family History Uncle , of [place] in his 40s Coronary heart disease Social History Smoking Status: Never smoker Second Hand Exposure: No; Do You Dip or Chew Tobacco: No; Hx Alcohol Use: Yes Alcohol type: wine Hx Substance Use: No Preferred Language: Belarusian Communication Ability: Effective Communication Ability Comment: speech impediment, easily understood Special Education Paraeducator Required: No Beliefs That Will Affect Care: None marital status: Single Current Living Situation: Alone Current Living Situation Comment: from home 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 current occupational status: disabled How many Children do You have: 0 Feels Safe at Home: Yes Safety Concerns: Feels Safe At This Time Assistive Devices: Denture - Upper, Denture - Lower, Glasses, Hearing Aid - Bilateral and Walker Review of Systems Review of Systems: As per HPI, all other systems reviewed and negative Physical Exam Physical Exam: GENERAL: Comfortable, slightly anxious, no respiratory distress SKIN: Normal color, warm HEENT: bespectacled, pink palpebral conjunctivae, no ptosis, dry buccal mucosa NECK : Supple, no tenderness CHEST : CTA, no tenderness HEART : Irregular, mechanical murmur ABDOMEN: Some distention, nontender EXTREMITIES : Minimal LE swelling, no LE tenderness, no other conspicuous deformities noted NEUROLOGIC : Coherent, no facial asymmetry, no other gross focality Results & Data Results & Data Vital Signs (Past 12 Hours) Vital Signs Temp Pulse Pulse Resp BP BP Pulse Ox 06/10/24 03:36 06/10/24 03:00 69 20 115/60 95 06/10/24 01:06 64 06/10/24 01:00 57 L 18 116/57 L 97 06/09/24 22:00 53 L 15 122/63 100 06/09/24 21:34 70 18 128/77 100 06/09/24 19:33 36.6 C 74 18 130/70 99 O2 Del Method 06/10/24 03:36 Room Air 06/10/24 03:00 Room Air 06/10/24 01:06 06/10/24 01:00 Room Air 06/09/24 22:00 Room Air 06/09/24 21:34 Room Air 06/09/24 19:33 Room Air Laboratory Results Laboratory Results WBC 6.79 K/ul (4.8-10.8) 06/09/24 20:20 RBC 4.50 M/uL (4.20-5.40) 06/09/24 20:20 Hgb 12.6 g/dl (12.0-16.0) 06/09/24 20:20 Hct 39.6 % (37.0-47.0) 06/09/24 20:20 MCV 88.0 fL (80.0-100.0) 06/09/24 20:20 MCH 28.0 pg (25.0-34.0) 06/09/24 20:20 MCHC 31.8 g/dL (32.0-36.0) L 06/09/24 20:20 RDW Std Deviation 51.4 fL (36.4-46.3) H 06/09/24 20:20 RDW Coeff of Courtney 15.9 % (11.5-14.5) H 06/09/24 20:20 Plt Count 144 K/uL (130-400) 06/09/24 20:20 MPV 11.3 fL (9.4-12.4) 06/09/24 20:20 PT 38.8 Seconds (9.0-12.0) H 06/09/24 20:20 INR 4.0 (0.9-1.1) H 06/09/24 20:20 APTT 53 Seconds (21-31) H 06/09/24 20:20 PTT Ratio 2.0 06/09/24 20:20 Sodium 136 mmol/L (136-145) 06/09/24 20:20 Potassium 3.7 mmol/L (3.5-5.1) 06/09/24 20:20 Chloride 98 mmol/L (98-107) 06/09/24 20:20 Carbon Dioxide 33 mmol/L (21-32) H 06/09/24 20:20 Anion Gap 5 (3-11) 06/09/24 20:20 BUN 27 mg/dl (6-23) H 06/09/24 20:20 Creatinine 1.87 mg/dl (0.6-1.2) H 06/09/24 20:20 Est Cr Clr Drug Dosing 23.1 ml/min 06/09/24 20:20 eGFR 28.60 06/09/24 20:20 BUN/Creatinine Ratio 14.4 (10-20) 06/09/24 20:20 Glucose 111 mg/dl (70-99(Fasting)) H 06/09/24 20:20 Calcium 10.3 mg/dl (8.6-10.3) 06/09/24 20:20 Urine Color Yellow 06/09/24 21:57 Urine Appearance Clear (Clear) 06/09/24 21:57 Urine pH 7.0 (4.5-7.5) 06/09/24 21:57 Ur Specific [place] 1.008 (1.000-1.030) 06/09/24 21:57 Urine Protein Trace (Negative) H 06/09/24 21:57 Urine Glucose (UA) 2+ (Negative) H 06/09/24 21:57 Urine Ketones Negative (Negative) 06/09/24 21:57 Urine Blood Trace (Negative) H 06/09/24 21:57 Urine Nitrite Positive (Negative) A 06/09/24 21:57 Urine Bilirubin Negative (Negative) 06/09/24 21:57 Urine Urobilinogen Negative (Negative) 06/09/24 21:57 Ur Leukocyte Esterase 2+ (Negative) H 06/09/24 21:57 Urine WBC (Auto) >50 /hpf (0-5) H 06/09/24 21:57 Urine RBC (Auto) 0-2 /hpf (0-2) 06/09/24 21:57 U Hyaline Cast (Auto) 0-2 /lpf (0-2) 06/09/24 21:57 U Epithel Cells (Auto) 0-2 /hpf (0-2) 06/09/24 21:57 Urine Bacteria (Auto) 4+ (None Seen) H 06/09/24 21:57 Blood Type A Positive 06/09/24 20:20 Antibody Screen NEGATIVE 06/09/24 20:20 Impressions Pelvis Ultrasound 06/09/24 22:12 EXAM: US pelvic complete CLINICAL HISTORY: Vaginal bleeding, recent painful intercourse TECHNIQUE: Ultrasound examination of the pelvis was performed in real time and duplex using trans-abdominal and transvaginal approaches. The vascular flow was evaluated using color flow. COMPARISON: 06/02/2016 FINDINGS: Uterus: Post hysterectomy. There is midline area of increased vascularity seen posterior to vaginal wall, it measures 3.3 x 1.7 x 2.7 cm, could be within bowel loop. Vaginal canal is separately visualized and appear unremarkable. Ovaries: Both ovaries are not visualized. Adnexa: Right adnexa- Two ovoid hypoechoic areas seen in the right adnexa could be a fluid bowel loop/prominent lymph nodes. Left adnexa-Prominent veins adjacent to vaginal canal on left, raises the suspicion for prlvic congredstion syndrome. Bladder: Urinary bladder: Partially filled. No evidence of intraluminal stones. Additional Findings: Absence of pelvic free fluid. IMPRESSION: 1. Status post hysterectomy.(stable) 2. Midline hypervascular area posterior to vaginal canal, could be within bowel. (new) 3. Both ovaries are not visualized(stable) 4. Suspected fluid-filled bowel loops/prominent lymph nodes in right adnexa(new). 5. Pelvic congestion in the left adnexa(new) 6. Further evaluation with CT/MRI is recommended if clinically warranted. RECOMMENDATIONS: Clinical correlation with symptoms and further evaluation as indicated. Electronically signed by Vikas Huertas 06-10-2024 01:28 AM Abdomen/Pelvis CT 06/10/24 00:36 EXAM: CT abd pelvis wo con CLINICAL HISTORY: lower abd pain, vag bleeding, ? mass TECHNIQUE: Contiguous axial images were obtained from the level of the diaphragm to the pubic symphysis without intravenous or oral contrast. Coronal and sagittal reconstructions were likewise performed and indicated to increase the sensitivity for detecting clinically relevant pathology. CT scan was performed according to ALARA (as low as reasonably achievable). COMPARISON: CT abdominal angiography dated 07 December 2017. FINDINGS: Moderate to gross cardiomegaly detected. Evaluation of the abdominal and pelvic visceral organs is limited without intravenous contrast. Fecal loading with gaseous distension of the large bowel is noted. Few uncomplicated sigmoid and descending colonic diverticuli noted. Tiny calcified splenic granulomas seen. Inferior vena cava, its major tributaries are dilated. Maximum diameter of the suprarenal and infrarenal inferior vena cava measures 3.2 cm and 2.9 cm respectively. Suspicious fullness in perineal region anterior to anal canal. The unenhanced liver is grossly unremarkable. Gallbladder is not visualized, cholecystectomy status. The unenhanced pancreas is grossly unremarkable. The adrenal glands are grossly unremarkable. The kidneys are normal in size. There is no hydronephrosis. No perinephric stranding is seen. The ureters are normal in caliber. No evidence of focal or diffuse bowel wall thickening or evidence of bowel obstruction is seen. The urinary bladder is normal in contour. No adenopathy or fluid collections are seen. Pelvic viscera are grossly unremarkable. The aorta is normal in caliber. No aggressive appearing osseous lesions are identified. Rest of the findings are unchanged. IMPRESSION: 1. Moderate to gross cardiomegaly detected. Mildly progressed compared to the previous study. 2. Fecal loading with gaseous distension of the large bowel is noted. 3. Few uncomplicated sigmoid and descending colonic diverticuli noted. Stable. 4. Tiny calcified splenic granulomas seen. 5. Inferior vena cava, its major tributaries are dilated. Maximum diameter of the suprarenal and infrarenal inferior vena cava measures 3.2 cm and 2.9 cm respectively. Similar findings are also noted in the previous study. 6. Suspicious fullness in perineal region anterior to anal canal. Suggested: Clinical examination and MRI of the pelvis is suggested for better evaluation if clinically indicated. Electronically signed by John Puente 06-10-2024 02:22 AM Diagnostic Findings Chest x-ray as per my interpretation : Cardiomegaly, minimal congestion
--- NOTE | 2024-06-10 04:06 | XRay Report ---
EXAM: XR chest 1V portable CLINICAL HISTORY: Renal failure. TECHNIQUE: An X-ray image of the chest is obtained in AP projection. COMPARISON: Prior CR 05/12/2024. FINDINGS: Pulmonary Parenchyma: Bilateral prominent bronchovascular markings and diffuse reticular pattern. No evidence of consolidation, collapse, or focal opacities. No pulmonary nodules are identified. No evidence of pleural effusion or pleural thickening. Heart and Mediastinum: Enlarged heart size and shape are normal. No mediastinal widening or masses. No hilar or mediastinal lymphadenopathy. Midline sternotomy sutures with a cardiac loop recorder are seen is status post intervention. Bony Thorax: Bony thorax appears intact without fractures or deformities. Soft Tissues: Soft tissues overlying the chest wall are unremarkable. IMPRESSION: Stationary course of previously described cardiomegaly with congestive changes. Electronically signed by Vikas Huertas 06-10-2024 04:06 AM
[2024-06-10] MEDS ORDERED: METOCLOPRAMIDE HCL 10 MG TABLET PO PRN (04:09)
[2024-06-10] MEDS ORDERED: ACETAMINOPHEN 500 MG TAB PO PRN (04:09)
[2024-06-10] MEDS ORDERED: GLUCAGON FOR INJ 1 MG VIAL SQ PRN (04:58)
[2024-06-10] MEDS ORDERED: DEXTROSE 50% 50 ML SYRINGE IV PRN (04:58)
[2024-06-10] MEDS ORDERED: GLUCOSE 10 TAB/TUBE PO PRN (04:58)
[2024-06-10] MEDS ORDERED: CARBOHYDRATES FOR HYPOGLYCEMIA PO PRN (04:58)
[2024-06-10] MEDS ORDERED: GLUCOSE 40% GEL 15 GM TUBE PO PRN (04:58)
[2024-06-10 05:00] LABS: Basophils # (auto) 0.05 K/uL (0.00-0.20); Basophils % (auto) 0.7 %; Eosinophils # (auto) 0.26 K/uL (0.00-0.50); Eosinophils % (auto) 3.5 %; Hematocrit (blood only) 39.3 % (37.0-47.0); Hemoglobin 12.5 g/dl (12.0-16.0); Immature Granulocytes # (auto) 0.03 K/uL (0.01-0.20); Immature Granulocytes % (auto) 0.4 %; Lymphocytes # (auto) 1.16 K/uL (1.20-3.40); Lymphocytes % (auto) 15.5 %; Mean Corpuscular Hemoglobin 27.7 pg (25.0-34.0); Mean Corpuscular Hgb Conc 31.8 g/dL (32.0-36.0); Mean Corpuscular Volume 87.1 fL (80.0-100.0); Monocytes # (auto) 0.73 K/uL (0.11-0.59); Monocytes % (auto) 9.8 %; Neutrophils # (auto) 5.24 K/uL (1.40-6.50); Neutrophils % (auto) 70.1 %; Platelet Count 147 K/uL (130-400); RDW Coefficient of Variation 15.8 % (11.5-14.5); RDW Standard Deviation 50.1 fL (36.4-46.3); Red Blood Count 4.51 M/uL (4.20-5.40); White Blood Count 7.47 K/ul (4.8-10.8)
[2024-06-10 05:09] LABS: BUN Creatinine Ratio 15.3 (10-20); Calcium 9.9 mg/dl (8.6-10.3); Creatinine Clr Calc Pharmacy 24.5 ml/min; Potassium 3.4 mmol/L (3.5-5.1)
[2024-06-10 05:30] LABS: INR 3.9 (0.9-1.1); Prothrombin Time 37.2 Seconds (9.0-12.0)
[2024-06-10] MEDS: INSULIN ASPART PER UNIT CHARGE SC SCH (05:44)
[2024-06-10] MEDS: LEVOTHYROXINE SODIUM 100 MCG TABLET PO SCH (05:45)
[2024-06-10] MEDS: traMADol HCL 50 MG TABLET PO PRN (05:45)
--- OUTSIDE RECORDS SUMMARY | 2024-06-10 06:32 | External Medical Summary | Summary of Care ---
Author Name Unknown Organization [facility] Address [address] [place] [address] Phone [phone] Care Team Providers Care Worship Leader Name Role Phone Shara Ray MD Primary Care Provide r Encounter Details Date Type Department Care Team (Late st Contact Info) Description 05/12/2024 Result Scan Unspecified Department <No scans attached> [...] as of this encounter (statuses as of 06/08/2024) Medications acetaminophen (TYLENOL) 500 MG Tablet Take [...] as needed 50 mL 12/07/19 23 Active traMADol HCl 50 MG Oral Tablet (Ultram)Indication s:Generalized osteoarthritis,Pos t-traumatic osteoarthritis of right knee,Closed nondisplaced fracture of left tibial tuberosity with routine healing Take 1 Tablet by mouth 2 times a day as needed for Pain, Severe. 60 Tablet 03/11/2023 7:46 AM EST 03/08/19 24 Active Additional Information Patient taking differently:50 mg OralQID PRN, Pain, Severe, Reported on 05/25/2024 Buprenorphine 5 MCG/HR Transdermal Patch Weekly (Butrans) [...] (HCC) Use as directed. 100 Each 07/25/19 24 Active Glucose Blood In Vitro [...] mouth in the morning. 100 Capsule 3 05/28/2024 1:25 PM EDT 08/05/19 24 Active Additional Information Patient taking differently:20 mg OralQ-1999, Reported on 05/25/2024 rOPINIRole HCl 2 MG Oral Tablet (Requip)Indication s:Restless legs syndrome Take 1 Tablet by mouth in the morning and 1 Tablet at noon and 1 Tablet before bedtime. 300 Tablet 3 05/07/2024 2:51 PM EDT 10/22/19 24 Active Additional Information Patient taking differently:2 mg OralHS, Reported on 05/25/2024 Combivent Respimat 20-100 MCG/ACT Inhalation Aerosol Solution (Ipratropium-Albut keila) inhale 1 puff by mouth four times daily As Needed for Shortness Of Breath 12 g 2 05/02/2024 8:57 AM EDT 11/04/19 24 Active Folic Acid 1 MG Oral TabletIndications: Mild protein-calorie malnutrition (HCC) TAKE ONE TABLET BY MOUTH EVERY MORNING 100 Tablet 1 04/20/2024 3:59 PM EST 01/20/20 24 025 Active Citalopram Hydrobromide 10 MG Oral [...] bedtime. 540 Tablet 3 05/01/19 25 Active Ipratropium-Albute rol 0.5-2.5 (3) MG/3ML [...] as of this encounter (statuses as of 06/08/2024) Active Problems Problem Noted Date Diagnosed Date S/P tricuspid valve repair 04/09/2024 Hypothyroidism 04/09/2024 Hyperparathyroidism 04/09/2024 Moderate tricuspid regurgitation 03/23/2024 Esophageal dysmotility 03/23/2024 Chronic right-sided heart failure 03/20/2024 Atherosclerosis of pala co ronary artery of pala heart without angina pectoris 04/03/2023 Major depressive [...] leg, left, subsequent encounter 09/2021 Overview (12/05/2021): [facility] ER ulstrasound shows hematoma calf, [...] in the Comments) Remote Patient Monitoring Vendor: [facility] Device(s): Connected Scale Self - [...] Assessment & Plan (07/10/2021 12:27 PM EDT): [facility] Call: I would have her do [...] and amiodarone. On warfarin being managed by [facility] pharmacy. History of TIA (transient ischemic [...] as of this encounter (statuses as of 06/08/2024) Resolved Problems Problem Noted Date Diagnosed Date [...] Chest Xray Additional Comments: Followed by manager operations research - Dr. Rashel Sales [facility] Assessment & Plan (12/07/2022 2:00 [...] 40mg IM/IV CBC Chest Xray Followed by manager operations research - Dr. Rashel Sales [facility] Complicated UTI (urinary tract infection) [...] (07/12/2011): Per CKD protocol #1 [employer] Other*[id number] 06/02/2010 04/18/2011 Overview (06/02/2010): PROJECT: #[id number], SPONSOR: Aileen, PI: Adolfo De Jesus MD [...] can be closed. CONTACT: Roberto Carlos Huertas, Dry Press Operator Helper Type 2 diabetes mellitus wit h [...] as of this encounter (statuses as of 06/08/2024) Immunizations Name Administration Dates Next Due COVID-19 mRNA, LNP-s, No Pre serve, 2-Dose Series (Moderna) 04/19/2020,03/22/2020 COVID-19, MRNA-LNP, PF, 30 M CG/0.3 mL, 12 YRS AND ABOVE, IM ([employer]) 12/03/2022 COVID-19, mRNA, LNP-s, PF, B ooster, [...] 10/28/2023 Transportation Needs Answer Date Record ed Do you have trouble getting a ride to medical visits or work? (Adult - for ages 18 years and over) Not on file 10/28/2023 Does your family have a hard [...] place to sleep at night? No 10/28/2023 Do you think you are at risk of becoming homeless? (Adult - for ages 18 years and over) Not on file 10/28/2023 Does your family worry about paying [...] doing errands alone such as visiting a doctor’s office or shopping? (15 years old or [...] Care Team (Late st Contact Info) Description 06/10/2024 7:20 AM EDT Laboratory Lab [facility] Phle[facility] [address] [place] [address] [facility] Mobile Home Draw [address] [place] [address] [place] [address] 06/10/2024 6:00 PM EDT Anticoagulation Centralized [facility] Pharm[facility] Services, Denia Yee [address] [place] [address] [place] [address] [place] [address] 06/11/2024 5:00 PM EDT [facility] [place] [address] Valentina Laws RN 132 [facility] [place] [address] 06/19/2024 7:00 AM EDT Laboratory Lab [facility] Phlebotomy [address] [place] [address] [facility] Mobile Home Draw [address] [place] [address] [place] [address] 06/23/2024 2:00 PM EDT Office Visit Hematology/Oncology [facility] [place] [phone] Bouchra Del Cid CRNP [address] [place] [address] [place] [address] 06/24/2024 1:40 PM EDT Office Visit Family Medicine [address] [place] [phone] Shara Ray MD [address] [place] [address] [place] [address] 07/14/2024 3:00 PM EDT Cardiac Studies Cardiac Studies, [facility] [address] [place] [phone] 07/15/2024 2:00 PM EDT Office Visit Cardiology, [facility] [address] [place], [place] [phone] Maria Ines Bowers CRNP [address] [place] [address] 08/20/2024 3:00 PM EDT Office Visit Nephrology [address] [place] [address] Aliyah Lacey MD [address] [place], [place] [address] [address] 12/09/2024 10:00 AM EDT Office Visit Cardiology, [facility] [address] [place] [phone] Hadley Molina MD [address] [place] [address] 01/08/2025 2:00 PM EST Office Visit Family Medicine [address] [place] [phone] Shara Ray MD [address] [place] [address] [place] [address] 03/01/2025 2:40 PM EST Office Visit Nephrology [address] [place] [address] Aliyah Lacey MD [address] [facility] [place] [address] 05/19/2025 2:00 PM EDT Office Visit Allergy/Immunology [facility] [address] [facility] [place] [address] Rae Ramirez PA-C [address] [facility] [place] [address] Scheduled Procedures Name Priority Associated Diagnoses Date/Ti me COLONOSCOPY FLEXIBLE PROXIMAL DIAGNOSTIC Recall Screen for colon cancer Health Maintenance Due Date Last Done Comments Cologuard 1998 Sigmoidoscopy 1998 Fecal Occult Blood Test 03/26/2014 03/26/19 14, 11/20/2010, 11/09/2009 Colonoscopy 02/23/2023 02/24/2020, 07/2020, 07/16/2013, Additional history exists Colorectal Cancer Screening 02/23/2023 Adult Wellness Visit 07/31/2023 07/30/2022, 07/05/2021, 07/04/2020 COVID-19 Vaccine ( season) 2024 01/02/2024, 12/03/2022, 11/29/2021, Additional history exists HbA1c 09/11/2024 03/14/2024, 07/19, 04/24/2023, Additional history exists Albumin/Creatinine Ratio 09/25/2024 024, 05/07/2023, 12/03/2022, Additional history exists Depression Monitoring 10/27/2024 10/28/2023 Mammogram 11/26/2024 11/27/2023, 10/20, 11/15/2022, Additional history exists GFR 12/03/2024 06/03/2024, 0 10/2024, 05/20/2024, Additional history exists CKD PHOS USE SMARTSET 51402 03/23/2025 020 04/2024, 03/22/2024, 03/21/2024, Additional history exists CKD HGB USE SMARTSET 57290 05/13/202505/13, 03/25/2024, 03/23/2024, Additional history exists Diabetic Eye Exam 05/14/2025 05/14/2024, , 12/27/2020, Additional history exists Diabetic Foot Exam 05/20/2025 05/20/2024, 0 07/30/2022, 09/02/2019, Additional history exists TSH 06/03/2025 06/03/2024, 05/19, 05/30/2022, Additional history exists DTap/Tdap Vaccines (3 - [...] this encounter Medical Devices Implanted Type Area Livestock Farmer Device Identifier Shelf Expiration Date Model / Serial / Lot [place] Suture Biocomposite - Sn/A - [id number] Implanted:Qty: 2 on 12/13/2021 by Moris Jimenez DO at OR [facility] Left: Leg Lower [employer] 07/18/2024 [id number] / N/A / [id number] Vitoss Bbtrauma Foam Pack - [id number] - [id number] Implanted:Qty: 1 on 12/13/2021 by Moris Jimenez DO at OR [facility] Left: Leg Lower MICHA : TRAUMA 01/15/2022 / [id number] / [id number] System Delivery Triclip Xtw - [id number] Implanted:Qty: 1 on 03/18/2024 at [facility] [employer] 08/11/2025 [id number] / / documented as of this encounter Procedures Procedure Name Priority Date/Time Associated Diagnosis Comments ECHOCARDIOLOGY SCANNED RESULT 05/12/2024 EKG SCANNED RESULT 05/12/2024 documented in this encounter Results * ECHOCARDIOLOGY SCANNED RESULT (05/12/2024) 05/12/2024 us No Physician Data Unknown ECHOCARDIOLOGY Final Result * EKG SCANNED RESULT (05/12/2024) 05/12/2024 us No Physician Data Unknown EKG Final Result documented in this encounter Advance Directives * [...] Advance Directives occurred with: Patient Care Teams Worship Leader Relationship Specialty Start Date End Date Shara Ray MD [address] [place] [address] [place] [address] PCP - General Family Medicine 12/30/23 documented as of this encounter
--- OUTSIDE RECORDS SUMMARY | 2024-06-10 06:33 | External Medical Summary | Summary of Care ---
Author Name Unknown Organization [facility] Address [address] [place] [place] [address] Phone [phone] Care Team Providers Care Division Superintendent Name Role Phone Mercedes Gorman MD Primary Care Provide r Reason for Visit * Reason Comments Medication Refill Encounter Details Date Type Department Care Team (Late st Contact Info) Description 06/04/2024 Refill Family [address] [place] [phone] Mercedes Gorman MD [address] [place] [address] [place] [address] Dyslipidemia, goal LDL below 100*; Hypothyroidism, unspecified type; Long-term current use of proton pump inhibitor therapy; Encounter for long-term (current) use of medications Allergies Active Allergy Reactions Criticality Noted Date [...] as of this encounter (statuses as of 06/05/2024) Medications acetaminophen (TYLENOL) 500 MG Tablet Take [...] mouth in the morning. 100 Capsule 3 5 1:25 PM EDT 08/05/19 24 Active Additional [...] 5 8:57 AM EDT 11/04/19 24 Active Folic Acid 1 MG Oral TabletIndications: Mild protein-calorie malnutrition (HCC) TAKE ONE TABLET BY MOUTH EVERY MORNING 100 Tablet 1 5 3:59 PM EST 01/20/20 24 025 Active Torsemide 100 MG Oral Tablet (Demadex) Take 1 Tablet by mouth in the morning. 90 Tablet 3 5 6:43 PM EST 03/31/19 25 Active Additional Information Patient taking differently:100 mg Oral Daily(AM),100 mg in the AM & 50 mg in the afternoon, Reported on 05/25/2024 Citalopram Hydrobromide 10 MG Oral Tablet (CeleXA)Indication [...] Cough. 30 Capsule 1 05/12/19 25 Active Azelastine HCl 0.1 % Nasal Solution (Astelin) Administer 2 Sprays into nostril in the morning and 2 Sprays before bedtime. 90 mL 3 05/20/19 25 Active Warfarin Sodium 2.5 MG Oral Tablet (Coumadin) Take as instructed by coumadin pharmacist/clin ic - 3 tablets on Mondays, 2 tablets on all other days. 180 Tablet 1 5 1:12 PM EDT 05/22/19 25 Active Metoclopramide HCl 10 MG Oral Tablet (Reglan)Indication s:Nausea TAKE ONE TABLET BY MOUTH EVERY MORNING 30 MINUTES BEFORE A MEAL 100 Tablet 1 5 9:25 AM EDT 05/27/19 25 026 Active Nitroglycerin 0.4 MG Sublingual Tablet Sublingual (Nitrostat)Indicat ions:Old myocardial infarct,Atrial fibrillation (HCC),HTN, goal to be determined PLACE 1 TABLET UNDER THE TONGUE EVERY 5 MINUTES UP TO 3 DOSES NEEDED FOR CHEST PAIN. IF NO RELIEF CALL 911 OR GO TO ER 75 Tablet 06/04/19 25 Active Nystatin 405958 UNIT/ML Mouth/Throat SuspensionIndicati ons:Thrush Swish and swallow 5 mL in the morning and 5 mL at noon and 5 mL in the evening and 5 mL before bedtime. For thrush.. 240 mL 1 06/04/19 25 Active Rosuvastatin Calcium 10 MG Oral Tablet (Crestor)Indicatio ns:Dyslipidemia, goal LDL below 100 Take 1 Tablet by mouth in the morning. 100 Tablet 3 06/06/19 25 Active Rosuvastatin Calcium 10 MG Oral Tablet (Crestor) Take 1 Tablet by mouth in the morning. 100 Tablet 1 5 5:12 PM EST 11/25/19 24 025 Discontin ued(Refil l) documented as of this encounter (statuses as of 06/05/2024) Active Problems Problem Noted Date Diagnosed Date S/P tricuspid valve repair 04/09/2024 Hypothyroidism 04/09/2024 Hyperparathyroidism 04/09/2024 Moderate tricuspid regurgitation 03/23/2024 Esophageal dysmotility 03/23/2024 Chronic right-sided heart failure 03/20/2024 Atherosclerosis of moapa co ronary artery of moapa heart without angina pectoris 04/03/2023 Major depressive [...] Assessment & Plan (07/10/2021 12:27 PM EDT): [facility] Call: I would have her do [...] and amiodarone. On warfarin being managed by [facility] pharmacy. History of TIA (transient [...] PM EST): Symptoms well controlled on omeprazole rat exterminator [...] as of this encounter (statuses as of 06/05/2024) Resolved Problems Problem Noted Date Diagnosed Date [...] Chest Xray Additional Comments: Followed by air carrier maintenance inspector - Dr. Rashel Sales [facility] [...] IM/IV CBC Chest Xray Followed by air carrier maintenance inspector - Dr. Rashel Sales [facility] [...] (07/12/2011): Per CKD protocol #1 [employer] Other*[id number] 06/02/2010 04/18/2011 Overview (06/02/2010): PROJECT: #[id number], SPONSOR: Aileen, PI: Adolfo De Jesus MD [...] can be closed. CONTACT: Roberto Carlos Huertas, Chief I Dispatcher Type 2 diabetes mellitus wit h hemoglobin A1c goal of less than 7.0% 04/24/2010 08/29/2018 Overview (06/14/2015): ICD-10 update of inactive term ACTIVE CASE MANAGEMENT Kassie Anthony RN [phone] 05/10/19 10 12/05/2009 ADVANCE DIRECTIVE INFORMATION 05/09/2009 [...] as of this encounter (statuses as of 06/05/2024) Immunizations Name Administration Dates Next Due COVID-19 mRNA, LNP-s, No Pre serve, 2-Dose Series (Moderna) 04/19/2020,03/22/2020 COVID-19, MRNA-LNP, PF, 30 M CG/0.3 mL, 12 YRS AND ABOVE, IM ([employer]) 12/03/2022 COVID-19, mRNA, LNP-s, PF, B [...] Packs/Day Years Used Date Smoking Tobacco: Never Passive Smoke Exposure: Never Smokeless Tobacco: Never Comments:No passive smoke [...] Miscellaneous Notes * Telephone Encounter - Shy Kelley [facility] - 06/05/2024 5:34 AM EDTSigned Prescriptions: Disp Refills Rosuvastatin Calcium 10 MG Oral Tablet (Cr*100 Ta*3 Sig: Take 1 Tablet by mouth in the morning. Authorizing Provider: MERCEDES GORMAN User: SHY KELLEY * Telephone Encounter - Shy Kelley [facility] - 06/04/2024 5:43 PM EDTPending Prescriptions: Disp Refills Rosuvastatin Calcium 10 MG Oral Tablet (Cr*100 Ta*1 Sig: Take 1Tablet by mouth in the morning. documented in this encounter Plan of Treatment Upcoming Encounters Date Type Department Care Team (Late st Contact Info) Description 06/10/2024 7:20 AM EDT Laboratory Lab Mobile Phlebotomy [address] [place] [address] [facility] Mobile Home Draw [address] [place] [address] [place] [address] 06/10/2024 6:00 PM EDT Anticoagulation Centralized Clinical Pharmacy Services, Denia Yee [address] [place] [address] [place] [address] Ccps, [address] [place] [address] 06/11/2024 5:00 PM EDT [facility] [address] [facility] [place] [address] Valentina Laws, TANISHA [address] [place] [address] 06/19/2024 7:00 AM EDT Laboratory Lab Mobile Phlebotomy [address] [place] [address] [facility] Mobile Home Draw [address] [place] [address] [place] [address] 06/23/2024 2:00 PM EDT [facility] [place] [phone] Bouchra Del Cid CRNP [address] [place] [address] 06/24/2024 1:40 PM EDT Office Visit Family Medicine [address] [place] [phone] Mercedes Gorman MD [address] [place] [address] [place] [address] 07/14/2024 3:00 PM EDT Cardiac Studies Cardiac Studies, [facility] [address] [place] [phone] 07/15/2024 2:00 PM EDT Office Visit Cardiology, [facility] [address] [place] [phone] Maria Ines Bowers CRNP [address] [place] [address] 08/20/2024 3:00 PM EDT Office Visit Nephrology [address] [place] [address] Aliyah Lacey MD [address] [place] [address] 12/09/2024 10:00 AM EDT Office Visit Cardiology, [facility] [address] [place] [address] Hadley Molina MD [address] [place] [address] 01/08/2025 2:00 PM EST Office Visit Family Medicine [address] [place] [phone] Mercedes Gorman MD [address] [place] [address] [place] [address] 03/01/2025 2:40 PM EST Office Visit Nephrology [address] [place] [address] Aliyah Lacey MD [address] [place] [address] 05/19/2025 2:00 PM EDT Office Visit Allergy/Immunology [facility] [address] [place] [address] Rae Ramirez PA-C [address] [place] [place] [address] Scheduled Procedures Name Priority Associated Diagnoses Date/Ti [...] 11/15/2022, Additional history exists GFR 12/03/2024 06/03/2024, 040 10/2024, 05/20/2024, Additional history exists CKD PHOS USE SMARTSET 75510 03/23/2025 020 04/2024, 03/22/2024, 03/21/2024, Additional history exists CKD HGB USE SMARTSET 53319 03/25/202503/25, 03/23/2024, 03/22/2024, Additional history exists Diabetic Eye Exam 05/14/2025 [...] encounter Medical Devices Implanted Type Area Director Apparel Device Identifier Shelf Expiration Date Model / Serial / Lot Arnold Suture Biocomposite - Sn/A - [id number] Implanted:Qty: 2 on 12/13/2021 by Moris Jimenez, DO at OR [facility] Left: Leg Lower [employer] 07/18/2024 AR-[id number] / N/A / [id number] Vitoss Bbtrauma Foam Pack - [id number] - [id number] Implanted:Qty: 1 on 12/13/2021 by Moris Jimenez, DO at OR [facility] Left: Leg Lower MICHA : TRAUMA 01/15/2022 / [id number] / [id number] System Delivery Triclip Xtw - [id number] Implanted:Qty: 1 on 03/18/2024 at [facility] [employer]umo 08/11/2025 [id number] / / documented as of this encounter Results * VITAMIN B12 (06/03/2024 9:23 AM EDT) [facility] Vitamin B12 825 232 - 1,245 pg/mL 06/05/2024 2:43 AM EDT LABORATORY [facility] Blood Venous blood specimen / Unknown Venipuncture / Unknown 06/03/2024 9:23 AM EDT 06/03/2024 11:09 AM EDT Shy Kelley [facility] LAB BLOOD ORDERABLES Final Result Performing Organization Address City/[facility] Co de Phone Number LABORATORY [address] [address] * (ABNORMAL) TSH WITH FREE T4 IF INDICATED (06/03/2024 9:23 AM EDT) [facility] TSH 4.56(H) 0.27 - 4.20 uIU/mL 06/05/2024 2:43 AM EDT LABORATORY [facility] Blood Venous blood specimen / Unknown Venipuncture / Unknown 06/03/2024 9:23 AM EDT 06/03/2024 11:09 AM EDT Shy Kelley [facility] LAB BLOOD ORDERABLES Final Result Performing Organization Address [facility] de Phone Number LABORATORY [address] [address] * (ABNORMAL) LIPID PANEL WITH DIRECT LDL IF TG IS HIGH (06/03/2024 9:23 AM EDT) [facility] Triglycerides 92 <=174 mg/dL 06/04/2024 11:54 PM EDT LABORATORY [facility] Comment: Triglyceride Reference Ranges (mg/dL): <150 Acceptable 150-174 Borderline high 175-499 High >=500 Very high Cholesterol 118 <200 mg/dL 06/04/2024 11:54 PM EDT LABORATORY [facility] Comment: Total Cholesterol Reference Ranges (mg/dL): <200 Desirable 200-239 Borderline high >=240 High HDL Cholesterol 41(L) >49 mg/dL 11:54 PM EDT LABORATORY [facility] Comment: HDL Cholesterol Reference Ranges (mg/dL): >=60 High (Desirable) <50 Low (Undesirable) For Females <40 Low (Undesirable) For Males Non-HDL Cholesterol 77 <=159 mg/dL 06/04/2024 11:54 PM EDT LABORATORY [facility] Comment: Non-HDL Cholesterol Reference Range (mg/dL): <100 Target level for high risk ASCVD patient <130 Optimal for general population 130-159 Near optimal for general population 160-189 Borderline High 190-219 High >=220 Very High LDL Cholesterol 59 <=129 mg/dL 06/04/2024 11:54 PM EDT LABORATORY [facility] Comment: LDL Cholesterol Reference Ranges (mg/dL): <70 Target level for high risk ASCVD patient <100 Optimal for general population 100-129 Near optimal for general population 130-159 Borderline high 160-189 High >=190 Very high Patient has high LDL cholesterol. Consider screening for Familial Hypercholesterolemia. Blood Venous blood specimen / Unknown Venipuncture / Unknown 06/03/2024 9:23 AM EDT 06/03/2024 11:09 AM EDT Shy Kelley [facility] LAB BLOOD ORDERABLES Final Result LABORATORY [facility] [address] [place] [address] documented in this encounter Visit Diagnoses Diagnosis [...] group B, by GOLD 2017 classification ([facility]) Gastroesophageal reflux disease with esophagitis without [...] group B, by GOLD 2017 classification ([facility]) Major depressive disorder, recurrent, moderate (HCC) Major depressive disorder, recurrent episode, moderate Other persistent atrial fibrillation (HCC) Generalized anxiety disorder Atherosclerosis of moapa coronary artery without angina pectoris, unspecified whether moapa or transplanted heart Hypothyroidism, postablative Other postablative hypothyroidism Dyslipidemia, goal LDL below 100 Other and unspecified hyperlipidemia Dyslipidemia, goal LDL below 100- Primary Other and unspecified hyperlipidemia Hypothyroidism, unspecified type Long-term current use of proton pump inhibitor therapy Encounter for long-term (current) use of medications Encounter for long-term (current) use of other medications documented in this encounter Advance Directives * [...] Advance Directives occurred with: Patient Care Teams Division Superintendent Relationship Specialty Start Date End Date Mercedes Gorman MD [address] [place] [address] [place] [phone] PCP - General Family Medicine 11/11/24 documented as of this encounter
--- OUTSIDE RECORDS SUMMARY | 2024-06-10 06:33 | External Medical Summary | Summary of Care ---
Author Name Unknown Organization [facility] Address [address] [facility] [address] Phone [phone] Care Team Providers Care Software Analyst Name Role Phone Shara Ray MD Primary Care Provide r Encounter Details Date Type Department Care Team (Late st Contact Info) Description 06/08/2024 Orders Only Family Medicine [address] [place] [address] Shara Ray MD [address] [place] [address] [place] [address] Allergies Active Allergy Reactions Criticality Noted [...] on all other days. 180 Tablet 1 05/23/2024 1:12 PM EDT 05/22/19 25 Active Metoclopramide HCl 10 MG Oral Tablet (Reglan)Indication s:Nausea TAKE ONE TABLET BY MOUTH EVERY MORNING 30 MINUTES BEFORE A MEAL 100 Tablet 1 05/30/2024 9:25 AM EDT 05/27/19 25 026 Active Nitroglycerin 0.4 MG Sublingual Tablet Sublingual (Nitrostat)Indicat ions:Old myocardial infarct,Atrial fibrillation (HCC),HTN, goal to be determined PLACE 1 TABLET UNDER THE TONGUE EVERY 5 MINUTES UP TO 3 DOSES NEEDED FOR CHEST PAIN. IF NO RELIEF CALL 911 OR GO TO ER 75 Tablet 06/06/2024 8:34 AM EDT 06/04/19 Active Nystatin 223321 UNIT/ML Mouth/Throat SuspensionIndicati ons:Thrush Swish and swallow 5 mL in the morning and 5 mL at noon and 5 mL in the evening and 5 mL before bedtime For thrush 240 mL 1 06/06/2024 8:34 AM EDT 06/04/19 Active Rosuvastatin Calcium 10 MG Oral Tablet (Crestor)Indicatio ns:Dyslipidemia, goal LDL below 100 Take 1 Tablet by mouth in the morning. 100 Tablet 3 06/06/19 Active Torsemide 100 MG Oral Tablet (Demadex) Take 1 tablet by mouth in the morning and HALF tablet in the afternoon 60 Tablet 3 06/09/19 Active documented as of this encounter (statuses as of 06/08/2024) Active Problems Problem Noted Date Diagnosed Date S/P tricuspid valve repair 04/09/2024 Hypothyroidism 04/09/2024 Hyperparathyroidism 04/09/2024 Moderate tricuspid regurgitation 03/23/2024 Esophageal dysmotility 03/23/2024 Chronic right-sided heart failure 03/20/2024 Atherosclerosis of [place] co ronary artery of [place] heart without angina pectoris 04/03/2023 Major depressive [...] leg, left, subsequent encounter 09/2021 Overview (12/05/2021): [facility] ER ulstrasound shows hematoma [...] Assessment & Plan (07/10/2021 12:27 PM EDT): [facility] Call: I would have her do [...] and amiodarone. On warfarin being managed by [facility] pharmacy. History of TIA (transient [...] EST): Symptoms well controlled on omeprazole senior care [...] IM/IV Chest Xray Additional Comments: Followed by architectural modeler - Dr. Rashel Sales [facility] Assessment & Plan (12/07/2022 2:00 PM [...] 40mg IM/IV CBC Chest Xray Followed by architectural modeler - Dr. Rashel Sales [facility] Complicated UTI (urinary tract infection) [...] (07/12/2011): Per CKD protocol #1 [employer] Other*[id number] 06/02/2010 04/18/2011 Overview (06/02/2010): PROJECT: #[id number], SPONSOR: Aileen, PI: Adolfo De Jesus MD [...] can be closed. CONTACT: Roberto Carlos Huertas, President/[employer] Type 2 diabetes mellitus wit h hemoglobin [...] Assessment Author Yes 03/13/2024 3:44 PM Maury Thacker, RN documented as of this encounter Mental [...] 7:20 AM EDT Laboratory Lab Mobile Phlebotomy [address] [place] [address] [facility] Mobile Home Draw [address] [place] [address] [place] [address] 06/10/2024 6:00 PM EDT Anticoagulation Centralized Clinical Pharm[facility] Services, [address] [place] [address] [facility], [address] [place] [address] 06/11/2024 5:00 PM EDT [facility], [facility] [address] [facility] [place] [address] Valentina Laws RN [address] [facility] [place] [address] 06/19/2024 7:00 AM EDT Laboratory Lab Mobile Phlebotomy [address] [place] [address] [facility] Mobile Home Draw [address] [place] [address] [place] [address] 06/23/2024 2:00 PM EDT Office Visit Hematology/Oncology [employer] [facility] [place] [phone] Bouchra Del Cid CRNP [address] [place] [address] [place] [address] 06/24/2024 1:40 PM EDT Office Visit Family Medicine [address] [phone] Shara Ray MD [address] [place] [address] [place] [address] 07/14/2024 3:00 PM EDT Cardiac Studies Cardiac Studies, [facility] [address] [place] [phone] 07/15/2024 2:00 PM EDT Office Visit Cardiology, [facility] [address] [place] [phone] Maria Ines Bowers CRNP [address] [place] [address] 08/20/2024 3:00 PM EDT Office Visit Nephrology [address] [place] [address] Aliyah Lacey MD [address] [place] [address] 12/09/2024 10:00 AM EDT Office Visit Cardiology, [facility] [address] [place] [phone] Hadley Molina MD [address] [place] [address] 01/08/2025 2:00 PM EST Office Visit Family Medicine [address] [place] [phone] Shara Ray MD [address] [place] [address] [place] [address] 03/01/2025 2:40 PM EST Office Visit Nephrology [address] [place] [address] Aliyah Lacey MD [address] [place] [address] 05/19/2025 2:00 PM EDT Office Visit Allergy/Immunology [facility] [address] [facility] [place] [address] Rae Ramirez PA-C [address] [facility] [place] [address] Scheduled Procedures Name Priority Associated Diagnoses Date/Ti [...] 11/15/2022, Additional history exists GFR 12/03/2024 06/03/2024, 04/0 10/2024, 05/20/2024, Additional history exists CKD PHOS USE SMARTSET 50948 03/23/2025 02/0 04/2024, 03/22/2024, 03/21/2024, Additional history exists CKD HGB USE SMARTSET 80936 05/13/202505/13, 03/25/2024, 03/23/2024, Additional history exists Diabetic [...] this encounter Medical Devices Implanted Type Area Warp Scouring Vat Tender Device Identifier Shelf Expiration Date Model / Serial / Lot [place] Suture Biocomposite - Sn/A - [id number] Implanted:Qty: 2 on 12/13/2021 by Moris Jimenez DO at OR [facility] Left: Leg Lower [employer] 07/18/2024 [id number] / N/A / [id number] Vitoss Bbtrauma Foam Pack - [id number] - [id number] Implanted:Qty: 1 on 12/13/2021 by Moris Jimenez DO at OR [facility] Left: Leg Lower MICHA : TRAUMA 01/15/2022 [id number] / [id number] / [id number] System Delivery Triclip Xtw - [id number] Implanted:Qty: 1 on 03/18/2024 at [facility] 08/11/2025 [id number] / / documented as of this encounter Procedures Procedure Name Priority Date/Time Associated Diagnosis Comments CHEMISTRY-OUTSIDE Routine 05/13/2024 documented in this encounter Results * (ABNORMAL) CHEMISTRY-OUTSIDE (05/13/2024) Not all results display below - see scan for full detail OUTSIDE LAB (SEE SCANNED REPORT) Comment:SCAN INCLUDES - INPT LABS: CBCD, BMP CREATININE 2.62(A) 0.6 - 1.2 MG/DL OUTSIDE LAB (SEE SCANNED REPORT) EGFR 19.08 OUTSIDE LA B (SEE SCANNED REPORT) POTASSIUM 4.1 3.5 - 5.1 MMOL/L OUTSIDE LAB (SEE SCANNED REPORT) GLUCOSE 100(A) 70 - 99 MG/DL OUTSIDE LAB (SEE SCANNED REPORT) HOURS FASTING OUTSID E LAB (SEE SCANNED REPORT) TRIGLYCERIDES-OUT SIDE LAB OUTSIDE LAB (SEE SCANNED REPORT) CHOLESTEROL-OUTSI DE LAB OUTSIDE LAB (SEE SCANNED REPORT) HDL-OUTSIDE LAB OUTS EDEL LAB (SEE SCANNED REPORT) CHOL/HDL RATIO-OUTSIDE LAB OUTSIDE LA B (SEE SCANNED REPORT) LDL (CALCULATED)-OUTS EDEL LAB OUTSIDE LAB (SEE SCANNED REPORT) LDL (DIRECT MEASURE)-OUTSIDE LAB OUTSIDE LAB (SEE SCANNED REPORT) HEMOGLOBIN, [id number] LAB OUTSIDE LAB (SEE SCANNED REPORT) PHOSPHORUS-OUTSID E LAB OUTSIDE LAB (SEE SCANNED REPORT) PTH-OUTSIDE LAB OUTS EDEL LAB (SEE SCANNED REPORT) MICROALBUMIN RATIO-OUTSIDE LAB OUTSIDE LA B (SEE SCANNED REPORT) PROTEIN, UA-OUTSIDE LAB OUTSIDE LAB (SEE SCANNED REPORT) HGB 13.6 12.0 - 16.0 G/DL OUTSIDE LAB (SEE SCANNED REPORT) 05/13/2024 us Justin Perez MD LABORATORY Final Re sult OUTSIDE LAB (SEE SCANNED REPORT) documented in this encounter Advance Directives * [...] Directives occurred with: Patient Care Teams Software Analyst Relationship Specialty Start Date End Date Shara Ray MD [address] [place] [address] [place] [address] PCP - General Family Medicine 12/30/23 documented as of this encounter
--- OUTSIDE RECORDS SUMMARY | 2024-06-10 06:33 | External Medical Summary | Summary of Care ---
Author Name Unknown Organization [facility] Address [address] [facility] [place] [address] Phone [phone] Care Team Providers Care Skiff Operator Name Role Phone Shara Gorman MD Primary Care Provide r Reason for Visit * Reason Comments Medication Refill Encounter Details Date Type Department Care Team (Late st Contact Info) Description 06/03/2024 Refill Family [address] [place] [address] Shara Gorman MD [address] [place] [address] [place] [address] THROMBOEMBOLIC MYOCARDIAL INFARCTION; Atrial fibrillation (HCC); HTN, goal to be determined Allergies Active Allergy Reactions Criticality Noted Date [...] as of this encounter (statuses as of 06/03/2024) Medications acetaminophen (TYLENOL) 500 MG Tablet Take [...] 5 8:57 AM EDT 11/04/19 24 Active Rosuvastatin Calcium 10 MG Oral Tablet [...] ER 75 Tablet 06/04/19 25 Active Nystatin 102476 UNIT/ML Mouth/Throat SuspensionIndicati ons:Thrush Swish and swallow 5 mL in the morning and 5 mL at noon and 5 mL in the evening and 5 mL before bedtime. For thrush.. 240 mL 1 02/15/20 23 025 Discontin ued(Refil l) Nitroglycerin 0.4 MG Sublingual Tablet Sublingual (Nitrostat)Indicat ions:Old myocardial infarct,Atrial fibrillation (HCC),HTN, goal to be determined PLACE 1 TABLET UNDER THE TONGUE EVERY 5 MINUTES UP TO 3 DOSES NEEDED FOR CHEST PAIN. IF NO RELIEF CALL 911 OR GO TO ER 75 Tablet 4 12:34 PM EST 02/15/20 24 025 Discontin ued(Refil l) documented as of this encounter (statuses as of 06/03/2024) Active Problems Problem Noted Date Diagnosed Date S/P tricuspid valve repair 04/09/2024 Hypothyroidism 04/09/2024 Hyperparathyroidism 04/09/2024 Moderate tricuspid regurgitation 03/23/2024 Esophageal dysmotility 03/23/2024 Chronic right-sided heart failure 03/20/2024 Atherosclerosis of [place] co ronary artery of [place] heart without angina pectoris 04/03/2023 Major depressive [...] wed, sat. 80 mg , , sat, sun Spironolactone 12.5 mg daily Assessment & Plan (07/10/2021 12:27 PM EDT): [facility] Call: I would have her do [...] and amiodarone. On warfarin being managed by [facility] pharmacy. History of TIA (transient ischemic [...] PM EST): Symptoms well controlled on omeprazole [facility] current [...] as of this encounter (statuses as of 06/03/2024) Resolved Problems Problem Noted Date Diagnosed Date [...] IM/IV Chest Xray Additional Comments: Followed by lay brother - [facility] Rashel Sales [facility] 40mg IM/IV CBC Chest Xray Followed by lay brother - Dr. Rashel Sales [facility] [...] (07/12/2011): Per CKD protocol #1 [employer] Other*[id number] 06/02/2010 04/18/2011 Overview (06/02/2010): PROJECT: #[id number], SPONSOR: Aileen, PI: Adolfo De Jesus MD [...] can be closed. CONTACT: Roberto Carlos Huertas, Semaphore Operator Type 2 diabetes mellitus wit h [...] as of this encounter (statuses as of 06/03/2024) Immunizations Name Administration Dates Next Due COVID-19 mRNA, LNP-s, No Pre serve, 2-Dose Series (Moderna) 04/19/2020,03/22/2020 COVID-19, MRNA-LNP, PF, 30 M CG/0.3 mL, 12 YRS AND ABOVE, IM (LocaModa-Comirnaty) 12/03/2022 COVID-19, mRNA, LNP-s, PF, B ooster, [...] Notes * Telephone Encounter - Shy Kelley RPh - 06/03/2024 2:15 PM EDTSigned Prescriptions: Disp Refills Nitroglycerin 0.4 MG Sublingual Tablet Sub*75 Tab*0 Sig: PLACE 1TABLET UNDER THE TONGUE EVERY 5 MINUTES UP TO 3 DOSES NEEDED FOR CHEST PAIN. IF NO RELIEF CALL 911 OR GO TO ERAuthorizing Provider: Marlene GORMAN User: SHY KELLEY-------- documented in this encounter Plan of Treatment Upcoming Encounters Date Type Department Care Team (Late st Contact Info) Description 06/10/2024 7:20 AM EDT Laboratory Lab Mobile Phlebotomy [address] [place] [address] [facility] Mobile Home Draw [address] [facility] [place] [address] 06/10/2024 6:00 PM EDT Anticoagulation Centralized Clinical Pharmacy Services, Denia Yee [address] [place] [address] [place] [address] [facility], [address] [place] [address] 06/11/2024 5:00 PM EDT [facility] Visit [facility], [facility] [address] [place] [address] Valentina Laws RN [address] [place] [address] 06/23/2024 2:00 PM EDT Office Visit Hematology/Oncology [facility] 200 [facility] [place] [phone] Bouchra Del Cid CRNP [address] [facility] [place] [address] 06/24/2024 1:40 PM EDT Office Visit Family Medicine [address] [place] [phone] Shara Gorman MD [address] [place] [address] [place] [address] 07/14/2024 3:00 PM EDT Cardiac Studies Cardiac Studies, [facility] [address] [place] [phone] 07/15/2024 2:00 PM EDT Office Visit Cardiology, [facility] [address] [place] [phone] Maria Ines Bowers CRNP [address] [place] [address] 08/20/2024 3:00 PM EDT Office Visit Nephrology [address] [place] [address] Aliyah Lacey MD 200 [facility] [place] [address] 12/09/2024 10:00 AM EDT Office Visit Cardiology, [facility] [address] [place] [address] Hadley Molina MD [address] [place] [address] 01/08/2025 2:00 PM EST Office Visit Family Medicine [address] [place] [address] Shara Gorman MD [address] [place] [address] [place] [address] 03/01/2025 2:40 PM EST Office Visit Nephrology [address] [place] [address] Aliyah Lacey MD 200 [facility] [place] [address] 05/19/2025 2:00 PM EDT Office Visit Allergy/Immunology [facility] [place] 200 [facility] [place] [address] Rae Ramirez PA-C 200 [facility] [place] [address] Scheduled Procedures Name Priority Associated Diagnoses Date/Ti me COLONOSCOPY FLEXIBLE PROXIMAL DIAGNOSTIC Recall Screen for colon cancer Health Maintenance Due Date Last Done Comments Cologuard 1998 Sigmoidoscopy 1998 Fecal Occult Blood Test 03/26/2014 03/26/19 14, 11/20/2010, 11/09/2009 Colonoscopy 02/23/2023 02/24/2020, 07/2020, 07/16/2013, Additional history exists Colorectal Cancer Screening 02/23/2023 Adult Wellness Visit 07/31/2023 07/30/2022, 07/05/2021, 07/04/2020 TSH 06/06/2024 06/07/2023, 05/19, 06/28/2021, Additional history exists COVID-19 Vaccine ( season) 2024 01/02/2024, 12/03/2022, 11/29/2021, Additional history exists HbA1c 09/11/2024 03/14/2024, 07/19, 04/24/2023, Additional history exists Albumin/Creatinine Ratio 09/25/2024 024, 05/07/2023, 12/03/2022, Additional history exists Depression Monitoring 10/27/2024 10/28/2023 Mammogram 11/26/2024 11/27/2023, 10/20, 11/15/2022, Additional history exists GFR 12/03/2024 06/03/2024, 04/0 10/2024, 05/20/2024, Additional history exists CKD PHOS USE SMARTSET 42927 03/23/2025 02/0 04/2024, 03/22/2024, 03/21/2024, Additional history exists CKD HGB USE SMARTSET 10261 03/25/202503/25, 03/23/2024, 03/22/2024, Additional history exists Diabetic Eye Exam 05/14/2025 05/14/2024, , 12/27/2020, Additional history exists Diabetic Foot Exam 05/20/2025 05/20/2024, 0 07/30/2022, 09/02/2019, Additional history exists DTap/Tdap Vaccines (3 - [...] this encounter Medical Devices Implanted Type Area Watch Repair Technician Device Identifier Shelf Expiration Date Model / Serial / Lot [place] Suture Biocomposite - Sn/A - [id number] Implanted:Qty: 2 on 12/13/2021 by Moris Jimenez DO at OR [facility] Left: Leg Lower [employer] 07/18/2024 [id number] / N/A / [id number] Vitoss Bbtrauma Foam Pack - [id number] - [id number] Implanted:Qty: 1 on 12/13/2021 by Moris Jimenez DO at OR [facility] Left: Leg Lower MICHA : TRAUMA 01/15/2022 [id number] / [id number] / [id number] System Delivery Triclip Xtw - [id number] Implanted:Qty: 1 on 03/18/2024 at [facility] [employer] 08/11/2025 [id number] / / documented as of this [...] COPD, group B, by GOLD 2017 classification ([facility]) Major depressive disorder, recurrent, moderate (HCC) Major depressive disorder, recurrent episode, moderate Other persistent atrial fibrillation (HCC) Generalized anxiety disorder Atherosclerosis of [place] coronary artery without angina pectoris, unspecified whether [place] or transplanted heart Hypothyroidism, postablative Other postablative hypothyroidism Dyslipidemia, goal LDL below 100 Other and unspecified hyperlipidemia THROMBOEMBOLIC MYOCARDIAL INFARCTION Old myocardial infarction Atrial fibrillation (HCC) Atrial fibrillation HTN, goal to be determined Unspecified essential hypertension documented in this encounter Advance Directives * [...] Advance Directives occurred with: Patient Care Teams Skiff Operator Relationship Specialty Start Date End Date Shara Gorman MD [address] [place] [address] [place] [phone] PCP - General Family Medicine 12/30/23 documented as of this encounter
--- OUTSIDE RECORDS SUMMARY | 2024-06-10 06:33 | External Medical Summary | Summary of Care ---
Author Name Unknown Organization [facility] Address [address] [facility] [place] [address] Phone [phone] Care Team Providers Care Quarter Trimmer Name Role Phone Shara Ray MD Primary Care Provide r Reason for Visit * Reason Onset Date Comments Medication Refill 06/08/2024 Encounter Details Date Type Department Care Team (Late st Contact Info) Description 06/08/2024 Refill [facility] [place] [address] [place] [address] Rosette Watson CRNP [address] [place] [address] Allergies Active Allergy Reactions Criticality Noted Date [...] 911 OR GO TO ER 75 Tablet 5 8:34 AM EDT 06/04/19 25 Active Nystatin 050146 UNIT/ML Mouth/Throat SuspensionIndicati ons:Thrush Swish and swallow 5 mL in the morning and 5 mL at noon and 5 mL in the evening and 5 mL before bedtime For thrush 240 mL 1 5 8:34 AM EDT 06/04/19 25 Active Rosuvastatin Calcium 10 MG Oral Tablet (Crestor)Indicatio ns:Dyslipidemia, goal LDL below 100 Take 1 Tablet by mouth in the morning. 100 Tablet 3 06/06/19 25 Active Torsemide 100 MG Oral Tablet (Demadex) Take 1 tablet by mouth in the morning and HALF tablet in the afternoon 60 Tablet 3 06/09/19 25 Active Torsemide 100 MG Oral Tablet (Demadex) Take 1 tablet by mouth in the morning and HALF tablet in the afternoon 60 Tablet 3 06/06/19 25 025 Discontin ued(Refil l) documented as of this encounter (statuses as of 06/08/2024) Active Problems Problem Noted Date Diagnosed Date S/P tricuspid valve repair 04/09/2024 Hypothyroidism 04/09/2024 Hyperparathyroidism 04/09/2024 Moderate tricuspid regurgitation 03/23/2024 Esophageal dysmotility 03/23/2024 Chronic right-sided heart failure 03/20/2024 Atherosclerosis of red cliff co ronary artery of [place] cliff heart without angina pectoris 04/03/2023 Major depressive [...] left, subsequent encounter 09/2021 Overview (12/05/2021): [facility] ER ulstrasound shows [...] Assessment & Plan (07/10/2021 12:27 PM EDT): [facility] Call: I would have her do [...] amiodarone. On warfarin being managed by [facility] pharmacy. History of TIA (transient [...] PM EST): Symptoms well controlled on omeprazole residential current [...] IM/IV Chest Xray Additional Comments: Followed by dimension specification inspector - Dr. Rashel Sales [facility] Assessment & Plan (12/07/2022 2:00 [...] 40mg IM/IV CBC Chest Xray Followed by dimension specification inspector - Dr. Rashel Sales [facility] Complicated UTI (urinary tract infection) [...] (07/12/2011): Per CKD protocol #1 [employer] Other*[id number] 06/02/2010 04/18/2011 Overview (06/02/2010): PROJECT: #[id number], SPONSOR: Aileen, PI: Adolfo De Jesus MD [...] can be closed. CONTACT: Roberto Carlos Huertas, Armature Coil Winder Type 2 diabetes mellitus wit h hemoglobin [...] CG/0.3 mL, 12 YRS AND ABOVE, IM ([facility]) 12/03/2022 COVID-19, mRNA, LNP-s, PF, B ooster, [...] encounter Miscellaneous Notes * Telephone Encounter - Laura Myers PA-C - 06/08/2024 12:36 PM EDT Signed Prescriptions: Disp Refills Torsemide 100 MG Oral Tablet (Demadex) 60 Tab*3 Sig: Take 1 tablet by mouth in the morning and HALF tablet in the afternoonAuthorizing Provider: LAURA MYERS documented in this encounter Plan of Treatment Upcoming Encounters Date Type Department Care Team (Late st Contact Info) Description 06/10/2024 7:20 AM EDT Laboratory Lab Mobile Phlebotomy [address] [place] [address] [facility] Mobile Home Draw [address] [place] [address] [place] [address] 06/10/2024 6:00 PM EDT Anticoagulation [facility], Denia Yee [address] [place] [address] [place] Rodríguez [address] [facility], [address] [place] [address] 06/11/2024 5:00 PM EDT Home Visit [facility], [facility] [address] [place] [address] Valentina Laws RN [address] [place] [address] 06/19/2024 7:00 AM EDT Laboratory Lab Mobile Phlebotomy [place] [address] [place] [address] [place] Par[place] [address] [facility] Mobile Home Draw [facility] [place] [address] 06/23/2024 2:00 PM EDT Office Visit Hematology/Oncology [facility] [place] [address] [facility] [place] [address] Bouchra Del Cid CRNP [address] [facility] [place]ARDOJ[place] [address] 06/24/2024 1:40 PM EDT Office Visit Family Medicine [address] [place] [phone] Shara Ray MD [address] [place] [address] [place] [address] 07/14/2024 3:00 PM EDT Cardiac Studies Cardiac Studies, [facility] [address] [place] [phone] 07/15/2024 2:00 PM EDT Office Visit Cardiology, [facility] [address] [place] [phone] Maria Ines Bowers CRNP [address] [place] [address] 08/20/2024 3:00 PM EDT Office Visit Nephrology [address] [place] [address] Aliyah Lacey MD [address] [place] [address] 12/09/2024 10:00 AM EDT Office Visit Cardiology, [facility] [address] [place] [phone] Hadley Molina MD [address] [place] [address] 01/08/2025 2:00 PM EST Office Visit Family Medicine [address] [place] [address] Shara Ray MD [address] [place] [address] [place] [address] 03/01/2025 2:40 PM EST Office Visit Nephrology [address] [place] [address] Aliyah Lacey MD [address] [place] [address] 05/19/2025 2:00 PM EDT Office Visit Allergy/Immunology [facility] [place] [address] [facility] [place] [address] Rae Ramirez PA-C [address] [facility] [address] [place] [address] Scheduled Procedures Name Priority Associated Diagnoses Date/Ti [...] Additional history exists CKD PHOS USE SMARTSET 25201 03/23/2025 02/0 04/2024, 03/22/2024, 03/21/2024, Additional history exists CKD HGB USE SMARTSET 67262 05/13/202505/13, 03/25/2024, 03/23/2024, Additional history exists Diabetic [...] this encounter Medical Devices Implanted Type Area Mold Loft Worker Device Identifier Shelf Expiration Date Model / Serial / Lot [place] Suture Biocomposite - Sn/A - [id number] Implanted:Qty: 2 on 12/13/2021 by Moris Jimenez, DO at OR [facility] Left: Leg Lower [employer] 07/18/2024 [id number] / N/A / [id number] Vitoss Bbtrauma Foam Pack - [id number] - [id number] Implanted:Qty: 1 on 12/13/2021 by Moris Jimenez, DO at OR [facility] Left: Leg Lower MICHA : TRAUMA 01/15/2022 / [id number] / [id number] System Delivery Triclip Xtw - [id number] Implanted:Qty: 1 on 03/18/2024 at [facility] [place] [employer] 08/11/2025 [id number] / / documented as of this [...] Advance Directives occurred with: Patient Care Teams Quarter Trimmer Relationship Specialty Start Date End Date Shara Ray MD [address] [place] [address] [place] [address] PCP - General Family Medicine 12/30/23 documented as of this encounter
--- OUTSIDE RECORDS SUMMARY | 2024-06-10 06:33 | External Medical Summary | Summary of Care ---
Author Name Unknown Organization [facility] Address [address] [place] [facility] [place] [address] Phone [phone] Care Team Providers Care Water Supervisor Name Role Phone Shara Ray MD Primary Care Provide r Encounter Details Date Type Department Care Team (Late st Contact Info) Description 06/05/2024 Telephone [facility] [place] [address] [facility] [address] Jenny Cantu, TANISHA [address] [place] [address] [place] [address] Allergies Active Allergy Reactions Criticality Noted Date [...] ER 75 Tablet 06/04/19 25 Active Nystatin 258396 UNIT/ML Mouth/Throat SuspensionIndicati ons:Thrush Swish and swallow 5 mL in the morning and 5 mL at noon and 5 mL in the evening and 5 mL before bedtime For thrush 240 mL 1 06/04/19 25 Active Rosuvastatin Calcium 10 MG Oral Tablet (Crestor)Indicatio ns:Dyslipidemia, goal LDL below 100 Take 1 Tablet by mouth in the morning. 100 Tablet 3 06/06/19 25 Active Torsemide 100 MG Oral Tablet (Demadex) Take 1 tablet by mouth in the morning and HALF tablet in the afternoon 60 Tablet 3 06/06/19 25 Active Torsemide 100 MG Oral Tablet (Demadex) Take 1 Tablet by mouth in the morning. 90 Tablet 3 5 6:43 PM EST 03/31/19 25 025 Discontin ued(Refil l) documented as of this encounter (statuses as of 06/05/2024) Active Problems Problem Noted Date Diagnosed Date S/P tricuspid valve repair 04/09/2024 Hypothyroidism 04/09/2024 Hyperparathyroidism 04/09/2024 Moderate tricuspid regurgitation 03/23/2024 Esophageal dysmotility 03/23/2024 Chronic right-sided heart failure 03/20/2024 Atherosclerosis of [place] co ronary artery of [place] heart without angina pectoris 04/03/2023 Major depressive [...] subsequent encounter 09/2021 Overview (12/05/2021): [facility] ER ulstrasound [...] in the Comments) Remote Patient Monitoring Vendor: [facility] Device(s): Connected Scale Self - [...] Assessment & Plan (07/10/2021 12:27 PM EDT): [facility] Call: I would have her do [...] and amiodarone. On warfarin being managed by [facility] pharmacy. History of TIA (transient ischemic [...] PM EST): Symptoms well controlled on omeprazole long-term current [...] IM/IV Chest Xray Additional Comments: Followed by variety lathe operator - Dr. Rashel Sales [facility] Assessment & Plan (12/07/2022 2:00 PM [...] 40mg IM/IV CBC Chest Xray Followed by variety lathe operator - Dr. Rashel Sales [facility] Complicated UTI (urinary tract infection) 12/20/2021 [...] (07/12/2011): Per CKD protocol #1 [employer] Other*[id number] 06/02/2010 04/18/2011 Overview (06/02/2010): PROJECT: #[id number], SPONSOR: Aileen, PI: Adolfo De Jesus MD [...] can be closed. CONTACT: Roberto Carlos Huertas, Spring Fitter Helper Type 2 diabetes mellitus wit h [...] CG/0.3 mL, 12 YRS AND ABOVE, IM ([facility]) 12/03/2022 COVID-19, mRNA, LNP-s, PF, B ooster, [...] encounter Miscellaneous Notes * Telephone Encounter - Jenny Cantu RN - 06/05/2024 11:23 AM EDT Phone call from caregiver requesting refill and or new RX for Torsemide 100mg in Am and 50mg in PM. Medication pended and pharmacy selected YAJAIRA Medel Registered Nurse Navigator Triage [facility] documented in this encounter Plan of Treatment Upcoming Encounters Date Type Department Care Team (Late st Contact Info) Description 06/10/2024 7:20 AM EDT Laboratory Lab Mobile Phlebotomy [address] [place] [address] [facility] Mobile Home Draw [address] [place] [address] [place] [address] 06/10/2024 6:00 PM EDT Anticoagulation Centralized Clinical Pharmacy Services, [address] [place] [address] [place] [address] 06/11/2024 5:00 PM EDT Home Visit [facility], [facility] [address] [place] [address] Valentina Laws, RN [address] [place] [address] 06/19/2024 7:00 AM EDT Laboratory Lab Mobile Phlebotomy [address] [place] [address] [facility] Mobile Home Draw [address] [facility] [place] [address] 06/23/2024 2:00 PM EDT Office Visit Hematology/Oncology [place] 200 [facility] [place] [phone] Bouchra Del Cid CRNP [address] [place] [address] 06/24/2024 1:40 PM EDT Office Visit Family Medicine [address] [place] [phone] Shara Ray MD [address] [place] [address] [place]a [address] 07/14/2024 3:00 PM EDT Cardiac Studies Cardiac Studies, [facility] [address] [place] [phone] 07/15/2024 2:00 PM EDT Office Visit CardiologyJimyhermann Chavez, Horace [address] [place] [phone] Maria Ines Bowers CRNP [address] [place] [address] 08/20/2024 3:00 PM EDT Office Visit Nephrology [address] [place] [address] Aliyah Lacey MD 200 [facility] [place] [address] 12/09/2024 10:00 AM EDT Office Visit Cardiology, Gael Chavez, Horace [address] [place] [phone] Hadley Molina MD [address] [place] [address] 01/08/2025 2:00 PM EST Office Visit Family Medicine [address] [place] [phone] Shara Ray MD [address] [place] [address] [place] [address] 03/01/2025 2:40 PM EST Office Visit Nephrology [address] [place] [address] Aliyah Lacey MD [address] [place] [address] 05/19/2025 2:00 PM EDT Office Visit Allergy/Immunology [facility] LacyHorace [address] [place] [address] Rae Ramirez PA-C [address] [place] [address] Scheduled Procedures Name Priority Associated Diagnoses Date/Ti [...] Additional history exists CKD PHOS USE SMARTSET 69937 03/23/2025 02/0 04/2024, 03/22/2024, 03/21/2024, Additional history exists CKD HGB USE SMARTSET 63372 03/25/202503/25, 03/23/2024, 03/22/2024, Additional history exists Diabetic [...] this encounter Medical Devices Implanted Type Area Farmhand Device Identifier Shelf Expiration Date Model / Serial / Lot [place] Suture Biocomposite - Sn/A - [id number] Implanted:Qty: 2 on 12/13/2021 by Moris Jimenez, DO at OR [facility] Left: Leg Lower [employer] 07/18/2024 AR-[id number] / N/A / [id number] Vitoss Bbtrauma Foam Pack - [id number] - [id number] Implanted:Qty: 1 on 12/13/2021 by Moris Jimenez, DO at OR [facility] Left: Leg Lower MICHA : TRAUMA 01/15/2022 / [id number] / [id number] System Delivery Triclip Xtw - [id number] Implanted:Qty: 1 on 03/18/2024 at [facility] [employer] 08/11/2025 [id number] / / documented as of this [...] Advance Directives occurred with: Patient Care Teams Water Supervisor Relationship Specialty Start Date End Date Shara Ray MD [address] [place] [address] [place] [phone] PCP - General Family Medicine 12/30/23 documented as of this encounter
--- OUTSIDE RECORDS SUMMARY | 2024-06-10 06:33 | External Medical Summary | Summary of Care ---
Author Name Unknown Organization [facility] Address [address] [facility] [place] [address] Phone [phone] Care Team Providers Care Car Driver Name Role Phone Mercedes Gorman MD Primary Care Provide r Reason for Visit * Reason Onset Date Comments Medication Refill 06/03/2024 Encounter Details Date Type Department Care Team (Late st Contact Info) Description 06/03/2024 Refill Family Medicine [address] [place] [address] John Blanco MD [address] [place] [address] [place] [address] Thrush Allergies Active Allergy Reactions Criticality Noted Date [...] ER 75 Tablet 06/04/19 25 Active Nystatin 371151 UNIT/ML Mouth/Throat SuspensionIndicati ons:Thrush Swish and swallow 5 mL in the morning and 5 mL at noon and 5 mL in the evening and 5 mL before bedtime. For thrush.. 240 mL 1 06/04/19 25 Active Nystatin 400879 UNIT/ML Mouth/Throat SuspensionIndicati ons:Thrush Swish and swallow 5 mL in the morning and 5 mL at noon and 5 mL in the evening and 5 mL before bedtime. For thrush.. 240 mL 1 02/15/20 23 025 Discontin ued(Refil l) documented as of this encounter (statuses as of 06/03/2024) Active Problems Problem Noted Date Diagnosed Date S/P tricuspid valve repair 04/09/2024 Hypothyroidism 04/09/2024 Hyperparathyroidism 04/09/2024 Moderate tricuspid regurgitation 03/23/2024 Esophageal dysmotility 03/23/2024 Chronic right-sided heart failure 03/20/2024 Atherosclerosis of [place] co ronary artery of [place] heart without angina pectoris 04/03/2023 Major depressive [...] & Plan (07/10/2021 12:27 PM EDT): [facility] Call: I would have her do the [...] and amiodarone. On warfarin being managed by [facility] pharmacy. History of TIA (transient ischemic attack) [...] IM/IV Chest Xray Additional Comments: Followed by restaurant front manager - Dr. Rashel Sales [facility] [...] 40mg IM/IV CBC Chest Xray Followed by restaurant front manager - [facility]. Rashel Sales [facility] [...] (07/12/2011): Per CKD protocol #1 [employer] Other*[id number] 06/02/2010 04/18/2011 Overview (06/02/2010): PROJECT: #[id number], SPONSOR: Aileen, PI: Adolfo De Jesus MD [...] closed. CONTACT: Roberto Carlos Huertas, Director Of Retail Analytics Type 2 diabetes mellitus wit h hemoglobin A1c goal of less than 7.0% 04/24/2010 08/29/2018 Overview (06/14/2015): ICD-10 update of inactive term ACTIVE CASE MANAGEMENT Kassie Anthony RN [phone] 05/10/19 10 12/05/2009 ADVANCE DIRECTIVE INFORMATION 05/09/2009 [...] CG/0.3 mL, 12 YRS AND ABOVE, IM ([employer]) 12/03/2022 COVID-19, mRNA, LNP-s, PF, B [...] Telephone Encounter - Mercedes Gorman MD - 06/03/2024 2:29 PM EDT Signed Prescriptions: Disp Refills Nystatin 678564 UNIT/ML Mouth/Throat Suspe*240 mL 1 Sig: Swish and swallow 5 mL in the morning and 5 mL at noon and 5 mL in the evening and 5 mL before bedtime. For thrush.. Authorizing Provider: MERCEDES GORMAN * Telephone Encounter - [facility] - 06/03/2024 2:15 PM EDTPending Prescriptions: Disp Refills Nystatin 776231 UNIT/ML Mouth/Throat Suspe*240 mL 1 Sig: Swish and swallow 5 mL in the morning and 5 mL at noon and 5 mL in the evening and 5 mL before bedtime. For thrush.. * Telephone Encounter - [facility] - 06/03/2024 2:15 PM EDT Refill pharmacists currently not authorized to approve refills for the pended medication(s) per refill protocol. Please approve if appropriate. Pending Prescriptions: Disp Refills Nystatin 134848 UNIT/ML Mouth/Throat Suspe*240 mL 1 Sig: Swish and swallow 5 mL in the morning and 5 mL at noon and 5 mL in the evening and 5 mL before bedtime. For thrush.. Last Visit: 05/20/2024 (in office), 10/11/2020 (telemedicine) Next Visit: 06/24/2024 If no future appointments scheduled, and last appointment is greater than a year ago, please schedule patient for a follow-up appointment Last date the medication was ordered: 02-14-23 Pharmacy: [facility] Is this request for a controlled substance?No Urine Drug Screen:No results found. However, due to the size of the patient record, not all encounters were searched. Please check Results Review for a complete set of results. Patient Phone Numbers Labs: Lab Results Component Value Date/Time CREAT 1.7 (H) 06/03/2024 09:23 AM CREAT 1.4 (H) 10/05/2019 12:41 PM CREAT 0.8 12/09/1995 09:50 AM POTASSIUM 4.3 06/03/2024 09:23 AM POTASSIUM 4.0 10/05/2019 12:41 PM POTASSIUM 4.4 12/09/1995 09:50 AM TSH 2.10 06/07/2023 11:52 AM TSH 3.98 09/07/2019 11:00 AM TSH 1.48 12/09/1995 09:50 AM LDL 53 05/29/2023 10:32 AM LDL 61 09/07/2019 11:01 AM LDL NOT APPLICABLE 09/07/2019 11:01 AM ALT 17 05/20/2024 12:07 PM ALT 26 09/07/2019 11:01 AM HGBA1C 6.7 (H) 03/14/2024 05:45 AM HGBA1C 6.3 (H) 09/07/2019 11:01 AM Karma DelgadoPh. Clinical Pharmacist [facility] ([facility]) [address] [place] [address], [address] [place] [address] MC: [phone] 06/03/2024,2:15 PM documented in this encounter Plan of Treatment Upcoming Encounters Date Type Department Care Team (Late st Contact Info) Description 06/10/2024 7:20 AM EDT Laboratory Lab Mobile Phlebotomy [address] [place] [address] [facility] Mobile Home Draw [address] [place] [address] [place] [address] 06/10/2024 6:00 PM EDT Anticoagulation [facility], [address] [place] Rodríg[place] [address] [facility], [address] [place] [address] 06/11/2024 5:00 PM EDT Home Visit [facility], [facility] [address] [place] [address] Valentina Laws, TANISHA 132 [facility] [place] [address] 06/23/2024 2:00 PM EDT Office Visit Hematology/Oncology [employer] [address] [facility] [place] [phone] Bouchra Del Cid CRNP [address] [place] [address] 06/24/2024 1:40 PM EDT Office Visit Family Medicine [address] [place]lin [phone] Mercedes Gorman MD [address] [place] [address] [place] [address] 07/14/2024 3:00 PM EDT Cardiac Studies Cardiac Studies, [facility] [address] [place] [phone] 07/15/2024 2:00 PM EDT Office Visit Cardiology, [facility] [address] [place] [phone] Maria Ines Bowers CRNP [address] [place] [address] 08/20/2024 3:00 PM EDT Office Visit Nephrology [address] [place] [address] Aliyah Lacey MD [address] [place] [address] 12/09/2024 10:00 AM EDT Office Visit Cardiology, [facility] [address] [place] [phone] Hadley Molina MD [address] [place] [address] 01/08/2025 2:00 PM EST Office Visit Family Medicine [address] [place] [phone] Mercedes Gorman MD [address] [place] [address] [place] [address] 03/01/2025 2:40 PM EST Office Visit Nephrology [address] [place] [address] Aliyah Lacey MD [address] [place] [place] [address] 05/19/2025 2:00 PM EDT Office Visit Allergy/Immunology [employer] [address] [address] [address] Rae Ramirez PA-C 200 [facility] [place] [address] Scheduled Procedures Name Priority Associated Diagnoses Date/Ti [...] Additional history exists CKD PHOS USE SMARTSET 39946 03/23/2025 02/0 04/2024, 03/22/2024, 03/21/2024, Additional history exists CKD HGB USE SMARTSET 48797 03/25/202503/25, 03/23/2024, 03/22/2024, Additional history exists Diabetic [...] this encounter Medical Devices Implanted Type Area Military Analyst Device Identifier Shelf Expiration Date Model / Serial / Lot [place] Suture Biocomposite - Sn/A - [id number] Implanted:Qty: 2 on 12/13/2021 by Moris Jimenez, DO at OR [facility] Left: Leg Lower [employer] 07/18/2024 [id number] / N/A / [id number] Vitoss Bbtrauma Foam Pack - [id number] - [id number] Implanted:Qty: 1 on 12/13/2021 by Moris Jimenez, DO at OR [facility] Left: Leg Lower MICHA : TRAUMA 01/15/2022 [id number] / [id number] / [id number] System Delivery Triclip Xtw - [id number] Implanted:Qty: 1 on 03/18/2024 at [facility] [employer] 08/11/2025 [id number] / / documented as of this encounter Visit Diagnoses Diagnosis Gastroesophageal reflux disease with esophagitis without hemorrhage- Primary Type 2 diabetes mellitus with stage 3b chronic kidney disease, without long-term current use of insulin ([facility]) Permanent atrial fibrillation (HCC) Atrial fibrillation Restless [...] of unspecified site Permanent atrial fibrillation ([facility]) Atrial fibrillation Chronic obstructive pulmonary disease, unspecified COPD type ([facility]) Old myocardial infarct Old myocardial infarction Type 2 diabetes mellitus with stage 3b chronic kidney disease, without long-term current use of insulin ([facility]) Hypothyroidism, postablative Other postablative hypothyroidism Generalized anxiety disorder Permanent atrial fibrillation ([facility])- Primary Atrial fibrillation Type 2 diabetes mellitus with stage 3b chronic kidney disease, without long-term current use of insulin ([facility]) Hypertensive heart and kidney disease with chronic diastolic congestive heart failure and stage 3b chronic kidney disease (HCC) COPD, group B, by GOLD 2017 classification ([facility]) Gastroesophageal reflux disease with esophagitis without hemorrhage Hypothyroidism, postablative Other postablative hypothyroidism Dyslipidemia, goal LDL below 100 Other and unspecified hyperlipidemia Restless legs syndrome Restless legs syndrome (RLS) Iron deficiency anemia, unspecified iron deficiency anemia type Hypertensive heart and kidney disease with chronic diastolic congestive heart failure and stage 3b chronic kidney disease (HCC)- Primary COPD, group B, by GOLD 2017 classification ([facility]) Major depressive disorder, recurrent, moderate (HCC) Major depressive disorder, recurrent episode, moderate Other persistent atrial fibrillation (HCC) Generalized anxiety disorder Atherosclerosis of [place] coronary artery without angina pectoris, unspecified whether buck[place] or transplanted heart Hypothyroidism, postablative Other postablative hypothyroidism Dyslipidemia, goal LDL below 100 Other and unspecified hyperlipidemia Thrush Candidiasis of mouth documented in this encounter Advance Directives * [...] Directives occurred with: Patient Care Teams Car Driver Relationship Specialty Start Date End Date Mercedes Gorman MD [address] [place] [address] [place] [phone] PCP - General Family Medicine 12/30/23 documented as of this encounter
--- OUTSIDE RECORDS SUMMARY | 2024-06-10 06:34 | External Medical Summary | Summary of Care ---
Author Name Unknown Organization [facility] Address [address] [place] [place] [address] Phone [phone] Care Team Providers Care Conflicts Analyst Name Role Phone Shara Ray MD Primary Care Provide r Reason for Visit * Reason Onset Date Comments Test Results 06/03/2024 Encounter Details Date Type Department Care Team (Late st Contact Info) Description 06/03/2024 Telephone Cardiology, [facility] [address] [place] [phone] Hadley Molina MD [address] [place] [phone] Test Results Allergies Active Allergy Reactions Criticality [...] 9:25 AM EDT 05/27/19 25 026 Active Nystatin 621140 UNIT/ML Mouth/Throat SuspensionIndicati ons:Thrush Swish and swallow [...] Chronic right-sided heart failure 03/20/2024 Atherosclerosis of [place] co ronary artery of [place] heart without angina pectoris 04/03/2023 Major depressive [...] 09/2021 Overview (12/05/2021): [facility] ER ulstrasound [...] & Plan (07/10/2021 12:27 PM EDT): [facility] Call: I would have her do [...] and amiodarone. On warfarin being managed by [facility] pharmacy. History of TIA (transient [...] IM/IV Chest Xray Additional Comments: Followed by nuclear medicine specialist - Dr. Rashel Sales [facility] Assessment & Plan (12/07/2022 2:00 PM EDT): [...] 40mg IM/IV CBC Chest Xray Followed by nuclear medicine specialist - Dr. Rashel Sales [facility] Complicated UTI (urinary tract infection) 12/20/2021 05/17/2022 [...] (07/12/2011): Per CKD protocol #1 [employer] Other*[id number] 06/02/2010 04/18/2011 Overview (06/02/2010): PROJECT: #[id number], SPONSOR: Aileen, PI: Adolfo De Jesus MD [...] can be closed. CONTACT: Roberto Carlos Huertas, Electrician Bus Type 2 diabetes mellitus wit h hemoglobin [...] CG/0.3 mL, 12 YRS AND ABOVE, IM ([facility]) 12/03/2022 COVID-19, mRNA, LNP-s, PF, [...] Telephone Encounter - Hakan Silva LPN - 06/03/2024 12:42 PM EDT Sent patient a [employer] message to make aware. ----- Message from Hadley Molina MD sent at 06/03/2024 12:41 PM EDT ----- Stable documented in this encounter Plan of Treatment Upcoming Encounters Date Type Department Care Team (Late st Contact Info) Description 06/10/2024 7:20 AM EDT Laboratory Lab Mobile Phlebotomy [address] [place] [address] [facility] Mobile Home Draw [address] [place] [address] [place] [address] 06/10/2024 6:00 PM EDT Anticoagulation [facility], Denia Yee [address] [place] [address] [place] [address] [place] [address] 06/11/2024 5:00 PM EDT [facility] Visit [facility] [place], [facility] 132 [facility] [place] [address] Valentina Laws RN [address] [place] [address] 06/23/2024 2:00 PM EDT Office Visit Hematology/Oncology [employer] 200 [facility] [place] [phone] Bouchra Del Cid CRNP [address] [place] [address] [place] [address] 06/24/2024 1:40 PM EDT Office Visit Family Medicine [address] [place] [phone] Shara Ray MD [address] [place] [address] [place] [address] 07/14/2024 3:00 PM EDT [facility] [address] [place] [phone] 07/15/2024 2:00 PM EDT [facility] [address] [place] [phone] Maria Ines Bowers CRNP [address] [place] [address] 08/20/2024 3:00 PM EDT Office Visit Nephrology [address] [place] [address] Aliyah Lacey MD 200 [facility] [place] [address] 12/09/2024 10:00 AM EDT [facility] [address] [place] [phone] Hadley Molina MD [address] [place] [address] 01/08/2025 2:00 PM EST Office Visit Family Medicine [address] [place] [phone] Shara Ray MD [address] [place] [address] [place] [address] 03/01/2025 2:40 PM EST Office Visit Nephrology [address] [place] [address] Aliyah Lacey MD [address] [place] [address] 05/19/2025 2:00 PM EDT Office Visit Allergy/Immunology [facility] [place] [address] [place] [address] Rae Ramirez PA-C [address] [place] [address] Scheduled Procedures Name Priority Associated Diagnoses Date/Ti [...] Additional history exists CKD PHOS USE SMARTSET 21481 03/23/2025 02/0 04/2024, 03/22/2024, 03/21/2024, Additional history exists CKD HGB USE SMARTSET 73490 03/25/202503/25, 03/23/2024, 03/22/2024, Additional history exists Diabetic [...] this encounter Medical Devices Implanted Type Area Heel Seat Trimmer Device Identifier Shelf Expiration Date Model / Serial / Lot [place] Suture Biocomposite - Sn/A - [id number] Implanted:Qty: 2 on 12/13/2021 by Moris Jimenez, DO at OR [facility] Left: Leg Lower [employer] 07/18/2024 [id number] / N/A / [id number] Vitoss Bbtrauma Foam Pack - [id number] - [id number] Implanted:Qty: 1 on 12/13/2021 by Moris Jimenez, DO at OR [facility] Left: Leg Lower MICHA : TRAUMA 01/15/2022 / [id number] / [id number] System Delivery Triclip Xtw - [id number] Implanted:Qty: 1 on 03/18/2024 at [facility]S [facility] 08/11/2025 [id number] / / documented as of this [...] Advance Directives occurred with: Patient Care Teams Conflicts Analyst Relationship Specialty Start Date End Date Shara Ray MD [address] [place] [address] [place] [address] PCP - General Family Medicine 12/30/23 documented as of this encounter
--- OUTSIDE RECORDS SUMMARY | 2024-06-10 06:34 | External Medical Summary | Summary of Care ---
Author Name Unknown Organization [facility] Address [address] [place] [id number] Phone [phone] Care Team Providers Care Mother Helper Name Role Phone Shara Ray MD Primary Care Provide r Reason for Referral * Ancillary Services (Within 10 days (routine)) - Authorized Specialty Diagnoses / Procedures Referred By Contac t Referred To Contact Rail Signal Mechanic Diagnoses Iron deficiency anemia, unspecified iron deficiency anemia type Bouchra Del Cid CRNP [address] [place] [address] Phone: tel: fax: Referral ID Status Reason Start Date Expiration Date Visits Requested Visits Authorized [id number] Authorized Ancillary Services Required 06/03/2024 999 999 Question Answer Referral Priority Within 10 days (routine) Where should this appointment be scheduled? Dilma Comments Is Patient homebound? Yes All sections of this form must be filled out completely. Forms with missing or illegible information will be returned for completion. This form should not be modified in any way. Forms that have been modified will be returned. This form may not be submitted by a home health agency. It must be complete and submitted by the ordering provider. One full business day lead time is required and service will be scheduled based on the next service day for the area [facility] Home Phlebotomy does not service every geographical location on a daily basis. Contact [facility] Client Services at to find out service days for a specific location. Medical Laboratory [address] [place] [address] Carmelo Velazquez M.D. Director and Software Applications Engineer Patient Name: Abdi Bowling : 1955 Sex: female Address [address] [place] [id number] Provider: @REF@? Shara Ray MD? Diagnosis: No diagnosis found. Tests Requested CBC - Once starting June 18, 2024 Ferritin - Once starting June 18, 2024 Iron - Once starting June 18, 2024 Reason for Visit * Reason Onset Date Comments Order Request 06/03/2024 Nehemias Encounter Details Date Type Department Care Team (Late st Contact Info) Description 06/03/2024 Telephone Hematology/Oncology [facility] [place] [address] [facility] [place] [address] Bouchra Del Cid CRNP [address] [place] [address] [place] [address] Order Request (Nehemias) Allergies Active Allergy Reactions Criticality Noted Date [...] AM EDT 05/27/19 25 026 Active Nystatin 523205 UNIT/ML Mouth/Throat SuspensionIndicati ons:Thrush Swish and swallow [...] Chronic right-sided heart failure 03/20/2024 Atherosclerosis of [place] co ronary artery of [place] heart without angina pectoris 04/03/2023 Major depressive [...] left, subsequent encounter 09/2021 Overview (12/05/2021): [facility] ER ulstrasound shows hematoma calf, INR 4.2, [...] the Comments) Remote Patient Monitoring Vendor[place] [facility] Device(s): Connected Scale Self - Management [...] Plan (07/10/2021 12:27 PM EDT): [facility] Call: I would have her do [...] and amiodarone. On warfarin being managed by [facility] pharmacy. 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 Rashel Sales [facility] Assessment & Plan (12/07/2022 2:00 PM EDT): [...] 40mg IM/IV CBC Chest Xray Followed by federal appellate clerk - Dr. Rashel Sales [facility] Complicated UTI (urinary tract infection) 12/20/2021 05/17/2022 [...] (07/12/2011): Per CKD protocol #1 ORBIT-AF Research Other*[id number] 06/02/2010 04/18/2011 Overview (06/02/2010): PROJECT: #[id number], SPONSOR: Aileen, PI: Adolfo De Jesus MD [...] can be closed. CONTACT: Roberto Carlos Huertas, Electrical Wirer Type 2 diabetes mellitus wit h hemoglobin [...] CG/0.3 mL, 12 YRS AND ABOVE, IM ([facility]) 12/03/2022 COVID-19, mRNA, LNP-s, PF, B ooster, [...] encounter Miscellaneous Notes * Telephone Encounter - Darshan Valdez RN - 06/03/2024 12:12 PM EDT Mobile phlebotomy order placed as well as lab orders for CBCD,Ferritin, Iron. Called patients cousin back and informed him of this. * Telephone Encounter - Eda Avina OSA - 06/03/2024 10:56 AM EDT Pt's cousin is asking for the labs. Orders for iron screening, ferritin levels, CDC, with WBC etc and give it to mobile phlebotomy as an order. Last time she had the orders was on last year. Please call him as soon as you have the chance. documented in this encounter Plan of Treatment Upcoming Encounters Date Type Department Care Team (Late st Contact Info) Description 06/03/2024 6:00 PM EDT Anticoagulation Centralized Clinical Pharmacy Services, Denia Yee [address] [place] [address] [place] [address] [place] [address] skilled nursing current use of anticoagulant therapy*; History of TIA (transient ischemic attack); S/P mitral valve replacement 06/10/2024 7:20 AM EDT Laboratory Lab Mobile Phlebotomy [place] [address] [address] [place] [address] [facility] Mobile Home Draw [facility] [place], [place] [address] 06/10/2024 6:00 PM EDT Anticoagulation Centralized Clinical Pharmacy Services, Denia Yee [address] [place] [address] [place] [address] Ccps, [address] [place] [address] 06/11/2024 5:00 PM EDT [facility], [facility] [address] [place] [address] Valentina Laws RN [address] [place] [address] 06/23/2024 2:00 PM EDT Office Visit Hematology/Oncolog y [facility] [place] 200 [facility] [place] [phone] Bouchra Del Cid CRNP [address] [place] [address] [place] [address] 06/24/2024 1:40 PM EDT Office Visit Family Medicine [address] [place] [phone] Shara Ray MD [address] [place] [address] [place] [address] 07/14/2024 3:00 PM EDT Cardiac Studies Cardiac Studies, [facility] [address] [place] [phone] 07/15/2024 2:00 PM EDT Office Visit Cardiology, [facility] [address] [place] [phone] Maria Ines Bowers CRNP [address] [place] [address] 08/20/2024 3:00 PM EDT Office Visit Nephrology [address] [place] [address] Aliyah Lacey MD 200 [facility] [place] [address] 12/09/2024 10:00 AM EDT Office Visit Cardiology, [facility] [address] [place] [phone] Hadley Molina MD [address] [place] [address] 01/08/2025 2:00 PM EST Office Visit Family Medicine [address] [place] [phone] Shara Ray MD [address] [place] [address] [place] [address] 03/01/2025 2:40 PM EST Office Visit Nephrology [address] [place] [address] Aliyah Lacey MD 200 [facility] [place] [address] 05/19/2025 2:00 PM EDT Office Visit Allergy/Immunology [facility] 200 [facility] [place] [address] Rae Ramirez PA-C 200 [facility] [place] [address] Scheduled Orders Name Type Priority Associated Diagnoses Orde r Schedule CBC WITH WBC DIFFERENTIAL Lab Routine Iron deficiency anemia, unspecified iron deficiency anemia type Expected: 06/03/2024, Expires: 06/03/2025 FERRITIN Lab Routine Iron deficiency anemia, unspecified iron deficiency anemia type Expected: 06/03/2024, Expires: 06/03/2025 IRON SCREEN, INCLUDING TIBC Lab Routine Iron deficiency anemia, unspecified iron deficiency anemia type Expected: 06/03/2024, Expires: 06/03/2025 Scheduled Procedures Name Priority Associated Diagnoses Date/Ti me COLONOSCOPY FLEXIBLE PROXIMAL DIAGNOSTIC Recall Screen for colon cancer Scheduled Referrals Name Type Priority Associated Diagnoses Orde r Schedule HOME PHLEBOTOMY REFERRAL OP Referral Within 10 days (routine) Iron deficiency anemia, unspecified iron deficiency anemia type Ordered: 06/03/2024 Health Maintenance Due Date Last Done Comments [...] Additional history exists CKD PHOS USE SMARTSET 84772 03/23/20250 04/2024, 03/22/2024, 03/21/2024, Additional history exists CKD HGB USE SMARTSET 16669 03/25/202503/25, 03/23/2024, 03/22/2024, Additional history exists Diabetic [...] this encounter Medical Devices Implanted Type Area Gas Operations Analyst Device Identifier Shelf Expiration Date Model / Serial / Lot [place] Suture Biocomposite - Sn/A - [id number] Implanted:Qty: 2 on 12/13/2021 by Moris Jimenez DO at OR [facility] Left: Leg Lower [employer] 07/18/2024 [id number] / N/A / [id number] Vitoss Bbtrauma Foam Pack - [id number] - [id number] Implanted:Qty: 1 on 12/13/2021 by Moris Jimenez DO at OR [facility] Left: Leg Lower MICHA : TRAUMA 01/15/20220091-1296 / [id number] / [id number] System Delivery Triclip Xtw - [id number] Implanted:Qty: 1 on 03/18/2024 [place] [facility] [employer] 08/11/2025 [id number] / / documented as of this [...] [facility]) Generalized anxiety disorder Atherosclerosis of [place] coronary artery without angina pectoris, unspecified whether [place] or transplanted heart Hypothyroidism, postablative Other postablative hypothyroidism Dyslipidemia, goal LDL below 100 Other and unspecified hyperlipidemia skilled nursing current use of anticoagulant therapy- Primary History of TIA (transient ischemic attack) Transient ischemic attack (TIA), and cerebral infarction without residual deficits S/P mitral valve replacement Heart valve replaced by other means Iron deficiency anemia, unspecified iron deficiency anemia type- Primary documented in this encounter Advance Directives [...] Advance Directives occurred with: Patient Care Teams Mother Helper Relationship Specialty Start Date End Date Shara Ray MD [address] [place] [address] [place] [address] PCP - General Family Medicine 12/30/23 documented as of this encounter
--- OUTSIDE RECORDS SUMMARY | 2024-06-10 06:34 | External Medical Summary | Summary of Care ---
Author Name Unknown Organization [facility] Address [address] [facility] [place] [place] [address] Phone [phone] Care Team Providers Care Group Director Name Role Phone Shara Ray MD Primary Care Provide r Reason for Visit * Reason Comments Dosage Adjustment Via Phone (anticoag Cl inic) Encounter Details Date Type Department Care Team (Late st Contact Info) Description 06/03/2024 6:00 PM EDT Anticoagulation Centralized Clinical Pharmacy Services, [address] [place] [address] [place] [address] [facility] current use of anticoagulant therapy*; History [...] AM EDT 05/27/19 25 026 Active Nystatin 195984 UNIT/ML Mouth/Throat SuspensionIndicati ons:Thrush Swish and swallow [...] Chronic right-sided heart failure 03/20/2024 Atherosclerosis of [place] co ronary artery of [place] heart without angina pectoris 04/03/2023 Major depressive [...] left, subsequent encounter 09/2021 Overview (12/05/2021): [facility] ER ulstrasound shows [...] Monitoring Vendor: [facility] [place] Device(s): Connected Scale [...] this interval not displayed. Medication Regimen: Beta Gailna Therapy: Metoprolol Tartrate VINCENT Inhibitor/ARB Therapy: No [...] Assessment & Plan (07/10/2021 12:27 PM EDT): [facility] Call: I would have her [...] amiodarone. On warfarin being managed by [facility] pharmacy. 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 Rashel Sales [facility] Assessment & Plan (12/07/2022 2:00 [...] 40mg IM/IV CBC Chest Xray Followed by structural steel worker apprentice - Dr. Rashel Sales [facility] [...] (07/12/2011): Per CKD protocol #1 ORBIT-AF Research Other*[id number] 06/02/2010 04/18/2011 Overview (06/02/2010): PROJECT: #[id number], SPONSOR: Aileen, PI: Adolfo De Jesus MD [...] be closed. CONTACT: Roberto Carlos Huertas, Tool Lapper Hand Type 2 diabetes mellitus wit h [...] CG/0.3 mL, 12 YRS AND ABOVE, IM ([employer]Comir[employer]) 12/03/2022 COVID-19, mRNA, LNP-s, PF, B ooster, [...] in this encounter Progress Notes * Kirby Gates RPh - 06/03/2024 1:34 PM EDT Images from the original note were not included. Coumadin Clinic (region specific) Objective Current Warfarin Dose As of 06/03/2024 Warfarin maintenance plan: 5 mg (2.5 mg x 2) every day INR Result As of 06/03/2024 INR goal: 3.0-3.5 INR used for dosin.4 (06/03/2024) Assessment & Plan Warfarin Plan As of 06/03/2024 Full warfarin instructions: 06/03: 2.5 mg; Otherwise 2.5 mg every Mon; 5 mg all other days Next INR check: 06/10/2024 Sent myG Repeat PT/INR in 1 week(s) Weekly dose: decreased Additional Dosing Information: Description L WedFri, prefers Wed ([facility], [facility], or [facility]) Please also send myG message Pt does not usually hold doses Tech to contact patient with dose instructions as noted. Kirby Gates RPh 06/03/2024, 1:34 PM documented in this encounter Plan of Treatment Upcoming Encounters Date Type Department Care Team (Late st Contact Info) Description 06/10/2024 7:20 AM EDT Laboratory Lab Mobile Phlebotomy [address] [place] [address] [facility] Mobile Home Draw [facility] [place] [address] 06/10/2024 6:00 PM EDT Anticoagulation Centralized Clinical Pharmacy Services, [facility] Joselito [address] [place] [address] [place] [address] Ccps, [address] [place] [address] 06/11/2024 5:00 PM EDT [facility], [facility] [address] [place] [address] Valentina Laws RN [address] [place] [address] 06/23/2024 2:00 PM EDT Office Visit Hematology/Oncology [facility] 200 [facility] [place] [phone] Bouchra Del Cid CRNP 400 [facility] [place] [address] 06/24/2024 1:40 PM EDT Office Visit Family Medicine [address] [place] [phone] Shara Ray MD [address] [place] [address] [place] [address] 07/14/2024 3:00 PM EDT Cardiac Studies Cardiac Studies, [facility] [address] [place] [phone] 07/15/2024 2:00 PM EDT Office Visit Cardiology, [facility] [address] [place] [phone] Maria Ines Bowers CRNP [address] [place] [address] 08/20/2024 3:00 PM EDT Office Visit Nephrology [address] [place] [address] Aliyah Lacey MD [address] [place] [address] 12/09/2024 10:00 AM EDT Office Visit Cardiology, [facility] [address] [place] [phone] Hadley Molina MD [address] [place] [address] 01/08/2025 2:00 PM EST Office Visit Family Medicine [address] [place] [address] Shara Ray MD [address] [place] [address] [place] [address] 03/01/2025 2:40 PM EST Office Visit Nephrology [address] [place] [address] Aliyah Lacey MD 200 [facility] [place] [address] 05/19/2025 2:00 PM EDT Office Visit Allergy/Immunology [place] [address] [place] [address] Rae Ramirez PA-C 200 [facility] [place] [address] Scheduled Procedures Name Priority Associated Diagnoses Date/Ti [...] Additional history exists CKD PHOS USE SMARTSET 40463 03/23/2025 02/0 04/2024, 03/22/2024, 03/21/2024, Additional history exists CKD HGB USE SMARTSET 15284 03/25/202503/25, 03/23/2024, 03/22/2024, Additional history exists Diabetic [...] this encounter Medical Devices Implanted Type Area Customs Entry Writer Device Identifier Shelf Expiration Date Model / Serial / Lot [place] Suture Biocomposite - Sn/A - [id number] Implanted:Qty: 2 on 12/13/2021 by Moris Jimenez, DO at OR [facility] Left: Leg Lower [employer] 07/18/2024 AR-2324BCC / N/A / [id number] Vitoss Bbtrauma Foam Pack - [id number] - [id number] Implanted:Qty: 1 on 12/13/2021 by Moris Jimenez, DO at OR [facility] Left: Leg Lower MICHA : TRAUMA 01/15/20227766-8499 / [id number] / [id number] System Delivery Triclip Xtw - [id number] Implanted:Qty: 1 on 03/18/2024 at [facility] [email or web address] 08/11/2025 [id number] / / documented as of this [...] COPD, group B, by GOLD 2017 classification ([facility]) Gastroesophageal reflux disease with esophagitis without hemorrhage Hypothyroidism, postablative Other postablative hypothyroidism Dyslipidemia, goal LDL below 100 Other and unspecified hyperlipidemia Restless legs syndrome Restless legs syndrome (RLS) Iron deficiency anemia, unspecified iron deficiency anemia type Hypertensive heart and kidney disease with chronic diastolic congestive heart failure and stage 3b chronic kidney disease (HCC)- Primary COPD, group B, by GOLD 2017 classification ([facility]) Major depressive disorder, recurrent, moderate (HCC) Major depressive disorder, recurrent episode, moderate Other persistent atrial fibrillation (HCC) Generalized anxiety disorder Atherosclerosis of nikolski coronary artery without angina pectoris, unspecified whether nikolski or transplanted heart Hypothyroidism, postablative Other postablative hypothyroidism Dyslipidemia, goal LDL below 100 Other and unspecified hyperlipidemia [facility] current use of anticoagulant therapy- Primary [...] Advance Directives occurred with: Patient Care Teams Group Director Relationship Specialty Start Date End Date Shara Ray MD [address] [place] [address] [place] [phone] PCP - General Family Medicine 12/30/23 documented as of this encounter
--- OUTSIDE RECORDS SUMMARY | 2024-06-10 06:35 | External Medical Summary | Summary of Care ---
Author Name Unknown Organization [facility] Address 100 [facility] [place] [address] Phone [phone] Care Team Providers Care Thermograph Operator Name Role Phone Shara Rya MD Primary Care Provide r Encounter Details Date Type Department Care Team (Late st Contact Info) Description 06/03/2024 Telephone Hematology/Oncology, [facility] [address] [place] [address] Bouchra Del Cid CRNP [address] [place] [address] Allergies Active Allergy Reactions Criticality Noted Date [...] AM EDT 05/27/19 25 026 Active Nystatin 494113 UNIT/ML Mouth/Throat SuspensionIndicati ons:Thrush Swish and swallow [...] Chronic right-sided heart failure 03/20/2024 Atherosclerosis of [place] co ronary artery of [place] heart without angina pectoris 04/03/2023 Major depressive [...] leg, left, subsequent encounter 09/2021 Overview (12/05/2021): [facility] ER ulstrasound shows hematoma calf, [...] Assessment & Plan (07/10/2021 12:27 PM EDT): [facility] Call: I would have her do the [...] and amiodarone. On warfarin being managed by [facility] pharmacy. History of TIA (transient ischemic [...] IM/IV Chest Xray Additional Comments: Followed by scarfer - Dr. Rashel Sales [facility] Assessment & Plan (12/07/2022 2:00 [...] 40mg IM/IV CBC Chest Xray Followed by scarfer - Dr. Rashel Sales [facility] Complicated UTI (urinary tract infection) [...] (07/12/2011): Per CKD protocol #1 ORBIT-AF Research Other*[id number] 06/02/2010 04/18/2011 Overview (06/02/2010): PROJECT: #[id number], SPONSOR: Aileen, PI: Adolfo De Jesus MD [...] can be closed. CONTACT: Roberto Carlos Huertas, Equipment Worker Type 2 diabetes mellitus wit h [...] CG/0.3 mL, 12 YRS AND ABOVE, IM ([facility]) 12/03/2022 COVID-19, mRNA, LNP-s, PF, [...] Yes 03/13/2024 3:44 PM Maury Thacker, RN * Do you have difficulty dressing [...] PM EDT Anticoagulation Centralized Clinical Pharmacy Services, [address] [place] [address] [place] [address] half-way current use of anticoagulant therapy*; History of TIA (transient ischemic attack); S/P mitral valve replacement 06/10/2024 7:20 AM EDT Laboratory Lab Mobile Phlebotomy [address] [place] [address] [facility] Mobile Home Draw [address] [place] [address] [place] [address] 06/10/2024 6:00 PM EDT Anticoagulation Centralized Clinical Pharmacy Services, [address] [place] [address] [place] [address] 06/11/2024 5:00 PM EDT [facility], [facility] [address] [place] [address] Valentina Laws, TANISHA [address] [place] [address] 06/23/2024 2:00 PM EDT Office Visit Hematology/Oncolog y [place] [address] [place] [address] Bouchra Del Cid CRNP 400 [facility] [place] [address] 06/24/2024 1:40 PM EDT Office Visit Family Medicine [address] [place] [phone] Shara Ray MD [address] [place] [address] [place] [address] 07/14/2024 3:00 PM EDT Cardiac Studies Cardiac Studies, [facility] [address] [place] [phone] 07/15/2024 2:00 PM EDT Office Visit Cardiology, [facility] [address] [place] [phone] Maria Ines Bowers CRNP [address] [place] [address] 08/20/2024 3:00 PM EDT Office Visit Nephrology [address] [place] [address] Aliyah Lacey MD 200 [facility] [place] [address] 12/09/2024 10:00 AM EDT Office Visit Cardiology, [facility] [address] [place] [phone] Hadley Molina MD [address] [place] [address] 01/08/2025 2:00 PM EST Office Visit Family Medicine [address] [place] [phone] Shara Ray MD [address] [place] [address] [place] [address] 03/01/2025 2:40 PM EST Office Visit Nephrology [address] [place] [address] Aliyah Lacey MD [address] [place] [address] 05/19/2025 2:00 PM EDT Office Visit Allergy/Immunology [facility] [place] [address] [place] [address] Rae Ramirez PA-C [address] [place] [address] Scheduled Procedures Name Priority Associated Diagnoses Date/Ti [...] 11/15/2022, Additional history exists GFR 12/03/2024 06/03/2024, 10/2024, 05/20/2024, Additional history exists CKD PHOS USE SMARTSET 65683 03/23/2025 02/0 04/2024, 03/22/2024, 03/21/2024, Additional history exists CKD HGB USE SMARTSET 80309 03/25/202503/25, 03/23/2024, 03/22/2024, Additional history exists Diabetic [...] this encounter Medical Devices Implanted Type Area Vp Scientific Device Identifier Shelf Expiration Date Model / Serial / Lot [place] Suture Biocomposite - Sn/A - [id number] Implanted:Qty: 2 on 12/13/2021 by Moris Jimenez, DO at OR [facility] Left: Leg Lower [employer] 07/18/2024 AR-2324BCC / N/A / [id number] Vitoss Bbtrauma Foam Pack - [id number] - [id number] Implanted:Qty: 1 on 12/13/2021 by Moris Jimenez, at OR [facility] Left: Leg Lower MICHA : TRAUMA 01/15/2022 / [id number] / [id number] System Delivery Triclip Xtw - [id number] Implanted:Qty: 1 on 03/18/2024 at [facility] [employer] 08/11/2025 [id number] / / documented as of this [...] Advance Directives occurred with: Patient Care Teams Thermograph Operator Relationship Specialty Start Date End Date Shara Ray MD [address] [place] [address] [place] [phone] PCP - General Family Medicine 12/30/23 documented as of this encounter
--- OUTSIDE RECORDS SUMMARY | 2024-06-10 06:37 | External Medical Summary ---
Author Name Unknown Address Unknown Organization K01:LABORATORY [facility] [place] - [address] [place] [address] Laboratory Report Ordering Provider Test Date Status WARREN BEGUM 06/03/2024 09:23:00 Final Observation Date Value Abnormality Reference (Units ) Status Vitamin B12 06/03/2024 09:23:00 [phone] (pg/mL) Final Performing Location LAB[facility]ATORY [facility] - [address] [place] [address]
--- OUTSIDE RECORDS SUMMARY | 2024-06-10 06:37 | External Medical Summary ---
Author Name Unknown Address Unknown Organization K0G:LABORATORY [place] - [address] [place] [address] Laboratory Report Ordering Provider Test Date Status SONIA PANTOJA 06/03/2024 09:23:00 Final Standing order for pt/inr. < br/>Please draw pt/inr every 1 to 4 weeks as requested.
Results to [facility]

Warfarin Therapy
INR: 2.0-3.0 conventional anticoagulation
INR: 2.5-3.5 high intensity anticoagulation Observation Date Value Abnormality Reference (Units ) Status PT 06/03/2024 09:23:00 42.6 Above high normal 11 .6-15.2 (seconds) Final INR 06/03/2024 09:23:00 4.4 Above high normal 0. 8-1.2 Final Performing Location LABORATORY [facility] 0 - [address] [place] [address]
--- OUTSIDE RECORDS SUMMARY | 2024-06-10 06:37 | External Medical Summary | Summary of Care ---
Author Name Unknown Organization [facility] Address [address] [facility] [place] [address] Phone [phone] Care Team Providers Care Batch Freezer Operator Name Role Phone Shara Ray MD Primary Care Provide r Reason for Visit * Reason Comments Dosage Adjustment Via Phone (anticoag Cl inic) Encounter Details Date Type Department Care Team (Late st Contact Info) Description 05/27/2024 6:00 PM EDT Anticoagulation Centralized Clinical Pharmacy Services, [address] [place] [address] [place] [address] FDC current use of anticoagulant therapy*; History of [...] as of this encounter (statuses as of 05/27/2024) Medications acetaminophen (TYLENOL) 500 MG Tablet Take [...] needed 50 mL 12/07/19 23 Active Nystatin 457685 UNIT/ML Mouth/Throat SuspensionIndicati ons:Thrush Swish and swallow [...] long-term current use of insulin ([facility]) Check your glucose daily as needed 1 Kit 07/25/19 Active LancetsIndications :Type 2 diabetes mellitus with stage 3b chronic kidney disease, without long-term current use of insulin ([facility]) Use as directed. 100 Each 07/25/19 Active Glucose Blood In Vitro StripIndications:T ype 2 diabetes mellitus with stage 3b chronic kidney disease, without long-term current use of insulin ([facility]) Use as directed. 100 Strip [...] 05/02/2024 8:57 AM EDT 11/04/19 24 Active Rosuvastatin [...] 02/17/2024 12:34 PM EST 02/15/20 24 Active Torsemide 100 MG Oral Tablet (Demadex) [...] MINUTES BEFORE A MEAL 100 Tablet 1 05/27/19 25 026 Active documented as of this encounter (statuses as of 05/27/2024) Active Problems Problem Noted Date Diagnosed Date S/P tricuspid valve repair 04/09/2024 Hypothyroidism 04/09/2024 Hyperparathyroidism 04/09/2024 Moderate tricuspid regurgitation 03/23/2024 Esophageal dysmotility 03/23/2024 Chronic right-sided heart failure 03/20/2024 Atherosclerosis of [place] co ronary artery of [place] heart without angina pectoris 04/03/2023 Major depressive [...] leg, left, subsequent encounter 09/2021 Overview (12/05/2021): [facility] ER ulstrasound [...] in the Comments) Remote Patient Monitoring Vendor: [facility] [place] Device(s): Connected Scale Self - Management [...] 40 mg mon, wed, fri. 80 mg tues, thurs, sat, sun Spironolactone 12.5 mg daily Assessment & Plan (07/10/2021 12:27 PM EDT): [facility] Call: I would have her [...] and amiodarone. On warfarin being managed by [facility] pharmacy. History of TIA (transient ischemic [...] PM EST): Symptoms well controlled on omeprazole FDC current [...] as of this encounter (statuses as of 05/27/2024) Resolved Problems Problem Noted Date Diagnosed Date [...] IM/IV Chest Xray Additional Comments: Followed by customs brokerage manager - Dr. Rashel Sales [facility] Assessment & Plan (12/07/2022 2:00 [...] 40mg IM/IV CBC Chest Xray Followed by customs brokerage manager - Dr. Rashel Sales [facility] Complicated UTI (urinary tract infection) [...] (07/12/2011): Per CKD protocol #1 [employer] Other*[id number] 06/02/2010 04/18/2011 Overview (06/02/2010): PROJECT: #[id number], SPONSOR: Aileen, PI: Adolfo De Jesus MD [...] can be closed. CONTACT: Roberto Carlos Huertas, Tobacco Wetter Type 2 diabetes mellitus wit h hemoglobin [...] as of this encounter (statuses as of 05/27/2024) Immunizations Name Administration Dates Next Due COVID-19 mRNA, LNP-s, No Pre serve, 2-Dose Series (Moderna) 04/19/2020,03/22/2020 COVID-19, MRNA-LNP, PF, 30 M CG/0.3 mL, 12 YRS AND ABOVE, IM ([facility]) 12/03/2022 COVID-19, mRNA, LNP-s, PF, B [...] documented in this encounter Progress Notes * Ashley Currie RP - 05/27/2024 2:11 PM EDT Contacts Contact Date/Time Type Contact Phone/Fax 05/27/2024 02:08 PM EDT Phone (Outgoing) Abdi Bowling (Self) [phone] (M) Subjective Patient Findings Negatives: Signs/symptoms of bleeding, Change in health, Change in activity, Upcoming invasive procedure, Missed doses, Extra doses, Change in medications, Change in diet/appetite, Bruising Comments: Pt asked to send myg - sent myg with dosing instructions Advised patient to contact Anticoagulation Clinic if any unusual bruising or bleeding, recent illness, changes in medication, or questions/concerns. PT/INR results, Coumadin dose instructions, and next PT/INR date communicated as noted by Pharmacist: Yes Ashley Currie RPh 05/27/2024, 2:11 PM * Kirby Gates [facility] - 05/27/2024 12:16 PM EDT Images from the original note were not included. Coumadin Clinic (region specific) Objective Current Warfarin Dose As of 05/27/2024 Warfarin maintenance plan: 5 mg (2.5 mg x 2) every day INR Result As of 05/27/2024 INR goal: 3.0-3.5 INR used for dosin.7 (05/27/2024) Assessment & Plan Warfarin Plan As of 05/27/2024 Full warfarin instructions: 05/27: 2.5 mg; Otherwise 5 mg every day Next INR check: 06/03/2024 Repeat PT/INR in 1 week(s) Weekly dose: not changed Additional Dosing Information: Description [facility] WedFri, prefers Wed ([facility], [facility], or [facility]) Please also send myG message Pt does not usually hold doses Tech to contact patient with dose instructions as noted. Kirby Gates RPh 05/27/2024, 12:16 PM documented in this encounter Plan of Treatment Upcoming Encounters Date Type Department Care Team (Late st Contact Info) Description 06/03/2024 7:15 AM EDT Laboratory Lab Mobile Phlebotomy [address] [place] [address] [facility] Mobile Home Draw [address] [place] [address] [place] [address] 06/03/2024 6:00 PM EDT Anticoagulation Centralized Clinical Pharmacy Services, [address] [place] [address] [place] [address] 06/11/2024 5:00 PM EDT [facility], [facility] [address] [facility] [address] [place] [address] Valentina Laws, RN [address] [place] [address] 06/23/2024 2:00 PM EDT Office Visit Hematology/Oncology [facility] [place] [address] [facility] [place] [phone] Bouchra Del Cid CRNP [address] [place] [address] [place] [address] 06/24/2024 1:40 PM EDT Office Visit Family Medicine [address] [place] [address] Shara Ray MD [address] [place] [address] [place] [address] 07/14/2024 3:00 PM EDT Cardiac Studies Cardiac Studies, [facility] [address] [place] [phone] 07/15/2024 2:00 PM EDT Office Visit Cardiology, [facility] [address] [place] [phone] Maria Ines Bowers CRNP [address] [place] [address] 08/20/2024 3:00 PM EDT Office Visit Nephrology [address] [place] [address] Aliyah Lacey MD [address] [facility] [place] [address] 12/09/2024 10:00 AM EDT Office Visit Cardiology, [facility] [address] [place] [address] Hadley Molina MD [address] [place] [address] 01/08/2025 2:00 PM EST Office Visit Family [address] [place] [address] Shara Ray MD [address] [place] [address] [place] [address] 03/01/2025 2:40 PM EST Office Visit Nephrology [address] [place] [address] Aliyah Lacey MD [address] [facility] [place] [address] 05/19/2025 2:00 PM EDT Office Visit Allergy/Immunology [facility] [place] [address] [facility] [place] [address] Rae Ramirez PA-C [address] [facility] [place] [address] Scheduled Procedures Name Priority Associated Diagnoses Date/Ti [...] history exists Depression Monitoring 10/27/2024 10/28/2023 GFR 11/26/2024 05/27/2024, 03/2024, 05/08/2024, Additional history exists Mammogram 11/26/2024 11/27/2023, 10/20, 11/15/2022, Additional history exists CKD PHOS USE SMARTSET 84143 03/23/20250 04/2024, 03/22/2024, 03/21/2024, Additional history exists CKD HGB USE SMARTSET 88414 03/25/202503/25, 03/23/2024, 03/22/2024, Additional history exists Diabetic [...] this encounter Medical Devices Implanted Type Area Capacity Management Specialist Device Identifier Shelf Expiration Date Model / Serial / Lot Tuttle Suture Biocomposite - Sn/A - [id number] Implanted:Qty: 2 on 12/13/2021 by Moris Jimenez, DO at OR [facility] Left: Leg Lower [employer] 07/18/2024 [id number] / N/A / [id number] Vitoss Bbtrauma Foam Pack - [id number] - [id number] Implanted:Qty: 1 on 12/13/2021 by Moris Jimenez, DO at OR [facility] Left: Leg Lower MICHA : TRAUMA 01/15/[id number] / [id number] / [id number] System Delivery Triclip Xtw - [id number] Implanted:Qty: 1 on 03/18/2024 at [facility]ARDIAC LABS [facility] [employer] 08/11/2025 [id number] / / documented as of this encounter Visit Diagnoses Diagnosis Gastroesophageal reflux disease with esophagitis without hemorrhage- Primary Type 2 diabetes mellitus with stage 3b chronic kidney disease, without long-term current use of insulin ([facility]) Permanent atrial fibrillation (HCC) Atrial fibrillation Restless [...] pulmonary disease, unspecified COPD type ([facility]) Old myocardial infarct Old myocardial infarction Type 2 diabetes mellitus with stage 3b chronic kidney disease, without long-term current use of insulin ([facility]) Hypothyroidism, postablative Other postablative hypothyroidism Generalized anxiety disorder Permanent atrial fibrillation (HCC)- Primary Atrial fibrillation Type 2 diabetes mellitus with stage 3b chronic kidney disease, without long-term current use of insulin ([facility]) Hypertensive heart and kidney disease with chronic diastolic congestive heart failure and stage 3b chronic kidney disease (HCC) COPD, group B, by GOLD 2017 classification ([facility]) Gastroesophageal reflux disease with esophagitis [...] B, by GOLD 2017 classification ([facility]) Major depressive disorder, recurrent, moderate (HCC) Major depressive disorder, recurrent episode, moderate Other persistent atrial fibrillation (HCC) Generalized anxiety disorder Atherosclerosis of [place] coronary artery without angina pectoris, unspecified whether [place] or transplanted heart Hypothyroidism, postablative Other postablative hypothyroidism Dyslipidemia, goal LDL below 100 Other and unspecified 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
--- OUTSIDE RECORDS SUMMARY | 2024-06-10 06:37 | External Medical Summary ---
Author Name Unknown Address Unknown Organization [facility] [address] [place] [address] Laboratory Report Ordering Provider Test Date Status TOÑA HONG 06/03/2024 09:23:00 Final Observation Date Value Abnormality Reference (Units ) Status BUN 06/03/2024 09:23:00 26 Above high normal 6-20 (mg/dL) Final Creatinine 06/03/2024 09:23:00 1.7 Above high normal 0.5-1.0 (mg/dL) Final Glomerular filtration rate/1.73 sq M.predicted [Volume Rate/Area] in Serum, Plasma or Blood by Creatinine-based formula (CKD-EPI) 06/03/2024 09:23:00 32 Below low normal >=60 (mL/min) Final eGFR is calculated based on the CKD-EPI 2020 equation. Sodium 06/03/2024 09:23:00 137 135-146 (m mol/L) Final Potassium 06/03/2024 09:23:00 4.3 3.5-5.1 (m mol/L) Final Cl 06/03/2024 09:23:00 96 Below low normal 98- 107 (mmol/L) Final CO2 06/03/2024 09:23:00 28 22-32 (mmo l/L) Final Anion gap 06/03/2024 09:23:00 13 7-15 (mmol /L) Final Glucose 06/03/2024 09:23:00 159 Above high normal 70 -120 (mg/dL) Final Calcium 06/03/2024 09:23:00 10.3 Above high normal 8. 4-10.2 (mg/dL) Final Performing Location LABORATORY [facility] [place] [address] 0 - [address] [place] [address]
--- OUTSIDE RECORDS SUMMARY | 2024-06-10 06:37 | External Medical Summary | Summary of Care ---
Author Name Unknown Organization [facility] Address [address] [place] [place] [address] Phone [phone] Care Team Providers Care Cupola Man Name Role Phone Shara Ray MD Primary Care Provide r Reason for Visit * Reason Onset Date Comments Test Results 05/29/2024 Encounter Details Date Type Department Care Team (Late st Contact Info) Description 05/29/2024 Telephone Cardiology, [facility] [address] [place] [address] Hadley Molina MD [address] [place] [id number] Test Results Allergies Active Allergy Reactions Criticality [...] as of this encounter (statuses as of 05/29/2024) Medications acetaminophen (TYLENOL) 500 MG Tablet Take [...] needed 50 mL 12/07/19 23 Active Nystatin 309078 UNIT/ML Mouth/Throat SuspensionIndicati ons:Thrush Swish and swallow [...] of insulin ([facility]) Use as directed. 100 Each 11 07/25/19 24 Active Glucose Blood In Vitro StripIndications:T ype 2 diabetes mellitus with stage 3b chronic kidney disease, without long-term current use of insulin ([facility]) Use as directed. 100 Strip [...] as of this encounter (statuses as of 05/29/2024) Active Problems Problem Noted Date Diagnosed Date S/P tricuspid valve repair 04/09/2024 Hypothyroidism 04/09/2024 Hyperparathyroidism 04/09/2024 Moderate tricuspid regurgitation 03/23/2024 Esophageal dysmotility 03/23/2024 Chronic right-sided heart failure 03/20/2024 Atherosclerosis of [place] co ronary artery of [place] heart without angina pectoris 04/03/2023 Major depressive [...] subsequent encounter 09/2021 Overview (12/05/2021): [facility] [...] the Comments) Remote Patient Monitoring Vendor: [facility] [place] Device(s): Connected [...] Assessment & Plan (07/10/2021 12:27 PM EDT): [facility] Call: I would have her do [...] as of this encounter (statuses as of 05/29/2024) Resolved Problems Problem Noted Date Diagnosed Date [...] IM/IV Chest Xray Additional Comments: Followed by casino cashier - Dr. Rashel Sales [facility] Assessment & Plan (12/07/2022 2:00 PM [...] 40mg IM/IV CBC Chest Xray Followed by casino cashier - Dr. Rashel Sales [facility] Complicated UTI (urinary tract infection) 12/20/2021 [...] (07/12/2011): Per CKD protocol #1 [employer] Other*[id number] 06/02/2010 04/18/2011 Overview (06/02/2010): PROJECT: #[id number], SPONSOR: Aileen, PI: Adolfo De Jesus MD [...] can be closed. 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 knee joint 09/03/2013 Protein calorie malnutrition 03/03/2019 Type 2 diabetes mellitus wit h hemoglobin A1c goal of less than 7.0% 04/26/2021 documented as of this encounter (statuses as of 05/29/2024) Immunizations Name Administration Dates Next Due COVID-19 mRNA, LNP-s, No Pre serve, 2-Dose Series (Moderna) 04/19/2020,03/22/2020 COVID-19, MRNA-LNP, PF, 30 M CG/0.3 mL, 12 YRS AND ABOVE, IM ([employer]) 12/03/2022 COVID-19, mRNA, LNP-s, PF, B ooster, [...] Entry Date Author Yes 03/13/2024 3:44 PM Maruy Thacker RN documented in this encounter Miscellaneous Notes * Telephone Encounter - Hakan Silva LPN - 05/29/2024 2:54 PM EDT Sent patient a Casetext message to make aware. ----- Message from Hadley Molina MD sent at 05/29/2024 2:41 PM EDT ----- Stable documented in this encounter Plan of Treatment Upcoming Encounters Date Type Department Care Team (Late st Contact Info) Description 06/03/2024 7:15 AM EDT Laboratory Lab Mobile Phlebotomy [address] [place] [address] [facility] Mobile Home Draw [address] [place] [address] [place] [address] 06/03/2024 6:00 PM EDT Anticoagulation Centralized Clinical Pharmacy Services, Denia Yee [address] [place] [address] [place] [address] [place] [address] 06/11/2024 5:00 PM EDT [facility], [facility] [address] [place] [address] Valentina Laws, TANISHA [address] [place] [address] 06/23/2024 2:00 PM EDT Office Visit Hematology/Oncology [facility] [place] [address] [facility] [place] [phone] Bouchra Del Cid CRNP [address] [facility] [place] [address] 06/24/2024 1:40 PM EDT Office Visit Family Medicine [address] [place] [address] Shara Ray MD [address] [place] [address] [place] [address] 07/14/2024 3:00 PM EDT [facility] [address] [place] [phone] 07/15/2024 2:00 PM EDT [facility] [address] [place] [phone] Maria Ines Bowers CRNP [address] [place] [address] 08/20/2024 3:00 PM EDT Office Visit Nephrology [address] [place] [address] Aliyah Lacey MD 200 [facility] [place] [address] 12/09/2024 10:00 AM EDT [facility] [address] [place] [phone] Hadley Molina MD [address] [place] [address] 01/08/2025 2:00 PM EST Office Visit Family Medicine [address] [place] [address] Shara Ray MD [address] [place] [address] [place] [address] 03/01/2025 2:40 PM EST Office Visit Nephrology [place] [address] [place] [address] Aliyah Lacey MD [address] [place] [address] 05/19/2025 2:00 PM EDT Office Visit Allergy/Immunology [facility] [place] [address] [place] [address] Rae Ramirez PA-C [address] [place] [address] Scheduled Procedures Name Priority Associated Diagnoses Date/Ti [...] Depression Monitoring 10/27/2024 10/28/2023 GFR 11/26/2024 05/27/2024, 04/0 03/2024, 05/08/2024, Additional history exists Mammogram 11/26/2024 11/27/2023, 10/20, 11/15/2022, Additional history exists CKD PHOS USE SMARTSET 88136 03/23/2025 02/0 04/2024, 03/22/2024, 03/21/2024, Additional history exists CKD HGB USE SMARTSET 55263 03/25/202503/25, 03/23/2024, 03/22/2024, Additional history exists Diabetic [...] this encounter Medical Devices Implanted Type Area Soft Tile Setter Device Identifier Shelf Expiration Date Model / Serial / Lot [place] Suture Biocomposite - Sn/A - [id number] Implanted:Qty: 2 on 12/13/2021 by Moris Jimenez, DO at OR [facility] Left: Leg Lower [employer] 07/18/2024 [id number] / N/A / [id number] Vitoss Bbtrauma Foam Pack - [id number] - [id number] Implanted:Qty: 1 on 12/13/2021 by Moris Jimenez, at OR [facility] Left: Leg Lower MICHA : TRAUMA 01/15/2022 [id number] / [id number] / [id number] System Delivery Triclip Xtw - [id number] Implanted:Qty: 1 on 03/18/2024 at [facility] [employer] 08/11/2025 [id number] / / documented as of this [...] Advance Directives occurred with: Patient Care Teams Cupola Man Relationship Specialty Start Date End Date Shara Ray MD [address] [place] [address] [place] [id number] PCP - General Family Medicine 12/30/23 documented as of this encounter
--- OUTSIDE RECORDS SUMMARY | 2024-06-10 06:37 | External Medical Summary ---
Author Name Unknown Address Unknown Organization K01:LABORATORY [facility] - [address] [place] [address] Laboratory Report Ordering Provider Test Date Status WARREN BEGUM 06/03/2024 09:23:00 Final Observation Date Value Abnormality Reference (Units ) Status T4, Free 06/03/2024 09:23:00 1.8 Above high normal 0. 9-1.7 (ng/dL) Final Performing Location LABORATORY [facility] - [address] [place] [address]
--- OUTSIDE RECORDS SUMMARY | 2024-06-10 06:37 | External Medical Summary ---
Author Name Unknown Address Unknown Organization K0G:LABORATORY [place] 57[address]10 - [address] [place] [address] Laboratory Report Ordering Provider Test Date Status TOÑA HONG 05/27/2024 09:35:00 Final Observation Date Value Abnormality Reference (Units ) Status BUN 05/27/2024 09:35:00 26 Above high normal 6-20 (mg/dL) Final Creatinine 05/27/2024 09:35:00 1.7 Above high normal 0.5-1.0 (mg/dL) Final Glomerular filtration rate/1.73 sq M.predicted [Volume Rate/Area] in Serum, Plasma or Blood by Creatinine-based formula (CKD-EPI) 05/27/2024 09:35:00 33 Below low normal >=60 (mL/min) Final eGFR is calculated based on the CKD-EPI 2020 equation. Sodium 05/27/2024 09:35:00 138 135-146 (m mol/L) Final Potassium 05/27/2024 09:35:00 3.9 3.5-5.1 (m mol/L) Final Cl 05/27/2024 09:35:00 98 98-107 (mm ol/L) Final CO2 05/27/2024 09:35:00 27 22-32 (mmo l/L) Final Anion gap 05/27/2024 09:35:00 13 7-15 (mmol /L) Final Glucose 05/27/2024 09:35:00 146 Above high normal 70 -120 (mg/dL) Final Calcium 05/27/2024 09:35:00 10.4 Above high normal 8. 4-10.2 (mg/dL) Final Performing Location LABORATORY [place] 5[address] 0 - [address] [place] [address]
--- OUTSIDE RECORDS SUMMARY | 2024-06-10 06:37 | External Medical Summary ---
Author Name Unknown Address Unknown Organization K01:LABORATORY [facility] - [address] [facility] [place] [address] Laboratory Report Ordering Provider Test Date Status WARREN BEGUM 06/03/2024 09:23:00 Final Observation Date Value Abnormality Reference (Units ) Status TSH 06/03/2024 09:23:00 4.56 Above high normal 0. 27-4.20 (uIU/mL) Final Performing Location LABORATORY [facility] - [address] [place] [address]
--- OUTSIDE RECORDS SUMMARY | 2024-06-10 06:37 | External Medical Summary ---
Author Name Unknown Address Unknown Organization [id number]:[facility] [address] [place] [address] Laboratory Report Ordering Provider Test Date Status SONIA PANTOJA 05/27/2024 09:35:00 Final Standing order for pt/inr. < br/>Please draw pt/inr every 1 to 4 weeks as requested.
Results to [facility] [address] [facility]

Warfarin Therapy
INR: 2.0-3.0 conventional anticoagulation
INR: 2.5-3.5 high intensity anticoagulation Observation Date Value Abnormality Reference (Units ) Status PT 05/27/2024 09:35:00 44.8 Above high normal 11 .6-15.2 (seconds) Final INR 05/27/2024 09:35:00 4.7 Above high normal 0. 8-1.2 Final Performing Location [facility] - [address] [place] [address]
--- OUTSIDE RECORDS SUMMARY | 2024-06-10 06:37 | External Medical Summary ---
Author Name Unknown Address Unknown Organization [id number]:[facility] [place] [address] Laboratory Report Ordering Provider Test Date Status WARREN BEGUM 06/03/2024 09:23:00 Final Observation Date Value Abnormality Reference (Units ) Status Triglyceride 06/03/2024 09:23:00 92 <=174 ( mg/dL) Final Triglyceride Reference Range s (mg/dL):
<150 Acceptable
150-174 Borderline high
175-499 High
>=500 Very high Cholesterol 06/03/2024 09:23:00 118 <200 (mg /dL) Final Total Cholesterol Reference Ranges (mg/dL):
<200 Desirable
200-239 Borderline high
>=240 High HDL 06/03/2024 09:23:00 41 Below low normal >49 (mg/dL) Final HDL Cholesterol Reference Ra nges (mg/dL):
>=60 High (Desirable)
<50 Low (Undesirable) For Females
<40 Low (Undesirable) For Males NON-HDL CHOLESTEROL 06/03/2024 09:23:00 77 <=159 (mg/dL) Final Non-HDL Cholesterol Referenc e Range (mg/dL):
<100 Target level for high risk ASCVD patient
<130 Optimal for general population
130-159 Near optimal for general population
160-189 Borderline High
190-219 High
>=220 Very High LDL, (calculated) 06/03/2024 09:23:00 59 <= 129 (mg/dL) Final LDL Cholesterol Reference Ra nges (mg/dL):
<70 Target level for high risk ASCVD patient
<100 Optimal for general population
100-129 Near optimal for general population
130-159 Borderline high
160-189 High
>=190 Very high
Patient has high LDL cholesterol. Consider screening for Familial Hypercholesterolemia. Performing Location [facility] [address] [facility] [address]
--- OUTSIDE RECORDS SUMMARY | 2024-06-10 06:38 | External Medical Summary | Summary of Care ---
Author Name Unknown Organization [facility] Address [address] [place] [facility] [place] [address] Phone [phone] Care Team Providers Care Coat Repair Inspector Name Role Phone Mercedes Gomran MD Primary Care Provide r Reason for Visit * Reason Comments Medication Refill Encounter Details Date Type Department Care Team (Late st Contact Info) Description 05/26/2024 Refill Family [address] [place] [address] Mercedes Gorman MD [address] [place] [address] [place] [address] Nausea Allergies Active Allergy Reactions Criticality Noted [...] as of this encounter (statuses as of 05/26/2024) Medications acetaminophen (TYLENOL) 500 MG Tablet Take [...] needed 50 mL 12/07/19 23 Active Nystatin 289824 UNIT/ML Mouth/Throat SuspensionIndicati ons:Thrush Swish and swallow [...] long-term current use of insulin ([facility]) Check your glucose daily as needed 1 Kit 07/25/19 24 Active LancetsIndications :Type 2 diabetes mellitus with stage 3b chronic kidney disease, without long-term current use of insulin ([facility]) Use as directed. 100 Each 11 07/25/19 24 Active Glucose Blood In Vitro StripIndications:T ype 2 diabetes mellitus with stage 3b chronic kidney disease, without long-term current use of insulin ([facility]) Use as directed. 100 Strip [...] 4 12:34 PM EST 02/15/20 24 Active Torsemide [...] 100 Tablet 1 05/27/19 25 026 Active Metoclopramide HCl 10 MG Oral Tablet (Reglan)Indication s:Nausea TAKE ONE TABLET BY MOUTH EVERY MORNING 30 MINUTES BEFORE A MEAL 100 Tablet 1 5 6:15 AM EST 11/12/19 24 025 Discontin ued(Refil l) documented as of this encounter (statuses as of 05/26/2024) Active Problems Problem Noted Date Diagnosed Date S/P tricuspid valve repair 04/09/2024 Hypothyroidism 04/09/2024 Hyperparathyroidism 04/09/2024 Moderate tricuspid regurgitation 03/23/2024 Esophageal dysmotility 03/23/2024 Chronic right-sided heart failure 03/20/2024 Atherosclerosis of [place] co ronary artery of [place] heart without angina pectoris 04/03/2023 Major depressive [...] left, subsequent encounter 09/2021 Overview (12/05/2021): [facility] ulstrasound [...] Assessment & Plan (07/10/2021 12:27 PM EDT): [facility] Call: I would have her do [...] and amiodarone. On warfarin being managed by [facility] pharmacy. History of TIA (transient ischemic attack) [...] as of this encounter (statuses as of 05/26/2024) Resolved Problems Problem Noted Date Diagnosed Date [...] IM/IV Chest Xray Additional Comments: Followed by orientation and mobility instructor - Dr. Rashel Sales [facility] Assessment & Plan (12/07/2022 2:00 PM EDT): [...] 40mg IM/IV CBC Chest Xray Followed by orientation and mobility instructor - Dr. Rashel Sales [facility] [...] (07/12/2011): Per CKD protocol #1 ORBIT-[employer] Research Other*[id number] 06/02/2010 04/18/2011 Overview (06/02/2010): PROJECT: #[id number], SPONSOR: Aileen, PI: Adolfo De Jesus MD [...] can be closed. CONTACT: Roberto Carlos Huertas, Vehicle Assembler Type 2 diabetes mellitus wit h [...] as of this encounter (statuses as of 05/26/2024) Immunizations Name Administration Dates Next Due COVID-19 mRNA, LNP-s, No Pre serve, 2-Dose Series (Moderna) 04/19/2020,03/22/2020 COVID-19, MRNA-LNP, PF, 30 M CG/0.3 mL, 12 YRS AND ABOVE, IM ([facility]) 12/03/2022 COVID-19, mRNA, LNP-s, PF, B ooster, [...] Telephone Encounter - Mercedes Gorman MD - 05/26/2024 8:22 AM EDT Signed Prescriptions: Disp Refills Metoclopramide HCl 10 MG Oral Tablet (Regl*100 Ta*1 Sig: TAKE ONE TABLET BY MOUTH EVERY MORNING 30 MINUTES BEFORE A MEAL Authorizing Provider: MERCEDES GORMAN * Telephone Encounter - Keyana Ivey RN - 05/26/2024 6:54 AM EDTPending Prescriptions: Disp Refills Metoclopramide HCl 10 MG Oral Tablet (Regl*100 Ta*1 Sig: TAKE ONE TABLET BY MOUTH EVERY MORNING 30 MINUTES BEFORE A MEAL * Telephone Encounter - Keyana Ivey RN - 05/26/2024 6:54 AM EDT Pending Prescriptions: Disp Refills Metoclopramide HCl 10 MG Oral Tablet (Reg*100 Ta*1 Sig: TAKE ONE TABLET BY MOUTH EVERY MORNING 30 MINUTES BEFORE A MEAL Last Visit: 05/20/2024 (in office), 10/11/2020 (telemedicine) Next Visit: 06/24/2024 Last date the medication was ordered: 11/11 Patient Active Problem List Diagnosis Rheumatic heart disease 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 S/P mitral valve replacement Gastroesophageal reflux disease with esophagitis without hemorrhage Generalized osteoarthritis Hypothyroidism, postablative Atherosclerosis of [place] coronary artery of [place] heart without angina pectoris Dyslipidemia, goal LDL [...] S/P tricuspid valve repair Hypothyroidism Hyperparathyroidism (HCC) Labs: Lab Results Component Value Date/Time CREATININE - [facility] 1.9 (H) 05/20/2024 12:07 PM CREATININE - [facility] 1.4 (H) 10/05/2019 12:41 PM CREATININE - [facility] 0.8 12/09/1995 09:50 AM CREATININE AMAURY 21 12/15/2019 12:14 PM CREATININE, RANDOM URINE - [facility] 32 09/26/2023 12:34 PM CREATININE, RANDOM URINE - [facility] 18 09/07/2019 11:01 AM Lab Results Component Value Date/Time POTASSIUM - [facility] 4.2 05/20/2024 12:07 PM POTASSIUM - [facility] 4.0 10/05/2019 12:41 PM POTASSIUM - [facility] 4.4 12/09/1995 09:50 AM Lab Results Component Value Date/Time TSH - [facility] 2.10 06/07/2023 11:52 AM TSH - [facility] 3.98 09/07/2019 11:00 AM TSH - OUTSIDE LAB 26.400 (A) 01/27/2018 12:00 AM Lab Results Component Value Date/Time LDL CHOLESTEROL (CALCULATED) - [facility] 53 05/29/2023 10:32 AM LDL CHOLESTEROL (CALCULATED) - [facility] 56 02/13/2023 12:37 PM LDL CHOLESTEROL (CALCULATED) - [facility] 61 09/07/2019 11:01 AM LDL CHOLESTEROL (CALCULATED) - [facility] 59 08/18/2018 08:56 AM LDL CHOLESTEROL (DIRECT MEASURE) - [facility] NOT APPLICABLE 09/07/2019 11:01 AM LDL CHOLESTEROL (DIRECT MEASURE) - [facility] NOT APPLICABLE 08/18/2018 08:56 AM LDL CHOLESTEROL (DIRECT MEASURE) - [facility] 131 (H) 05/04/2002 11:35 AM Lab Results Component Value Date/Time ALT - [facility] 17 05/20/2024 12:07 PM ALT - [facility] 26 09/07/2019 11:01 AM ALT-OUTSIDE LAB 41 06/02/2016 12:00 AM ALTERNARIA IGE - [facility] <0.20 07/07/2021 12:45 PM Hemoglobin AIC Results: Lab Results Component Value Date/Time HEMOGLOBIN A1C - [facility] 6.7 (H) 03/14/2024 05:45 AM HEMOGLOBIN A1C - [facility] 6.7 (H) 07/29/2023 09:49 AM HEMOGLOBIN A1C - [facility] 7.3 (H) 04/24/2023 11:27 AM HEMOGLOBIN A1C - [facility] 6.3 (H) 09/07/2019 11:01 AM HEMOGLOBIN A1C - [facility] 5.8 (H) 03/03/2019 01:39 PM HEMOGLOBIN A1C - [facility] 5.8 (H) 08/29/2018 08:13 AM * Telephone Encounter - Yana Muir - 05/26/2024 6:28 AM EDTPending Prescriptions: Disp Refills Metoclopramide HCl 10 MG Oral Tablet (Regl*100 Ta*1 Sig: TAKE ONE TABLET BY MOUTH EVERY MORNING 30 MINUTES BEFORE A MEAL documented in this encounter Plan of Treatment Upcoming Encounters Date Type Department Care Team (Late st Contact Info) Description 05/27/2024 7:20 AM EDT Laboratory Lab Mobile Phlebotomy [address] [place] [address] [facility] Mobile Home Draw [address] [place] [address] [place] [address] 05/28/2024 6:00 AM EDT Anticoagulation Centralized Clinical [facility] Services, [address] [place] [address] [place] [address] 06/11/2024 5:00 PM EDT [facility] [place] [address] Valentina Laws, TANISHA [facility] [place] [address] 06/23/2024 2:00 PM EDT Office Visit Hematology/Oncology [facility] [place] [facility] [place] [phone] Bouchra Del Cid CRNP [address] [facility] [place] [address] 06/24/2024 1:40 PM EDT Office Visit Family Medicine [address] [phone] Mercedes Gorman MD [address] [place] [address] [place] [address] 07/14/2024 3:00 PM EDT Cardiac Studies Cardiac Studies, [facility] [address] [place] [address] 07/15/2024 2:00 PM EDT Office Visit Cardiology, [facility] [address] [place] [phone] Maria Ines Bowers CRNP [address] [place] [address] 08/20/2024 3:00 PM EDT Office Visit Nephrology [address] [place] [address] Aliyah Lacey MD [address] [place] [address] 12/09/2024 10:00 AM EDT Office Visit Cardiology, [facility] [address] [place] [address] Hadley Molina MD [address] [place] [address] 01/08/2025 2:00 PM EST Office Visit Family Medicine [address] [place] [phone] Mercedes Gorman MD [address] [place] [address] [place] [address] 03/01/2025 2:40 PM EST Office Visit Nephrology [address] [place] [address] Aliyah Lacey MD [address] [place] [address] 05/19/2025 2:00 PM EDT Office Visit Allergy/Immunology [facility] [address] [place] [address] Rae Ramirez PA-C [address] [address] Scheduled Procedures Name Priority Associated Diagnoses Date/Ti [...] history exists Depression Monitoring 10/27/2024 10/28/2023 GFR 11/19/2024 05/20/2024, 04/19, 05/06/2024, Additional history exists Mammogram 11/26/2024 11/27/2023, 10/20, 11/15/2022, Additional history exists CKD PHOS USE SMARTSET 40939 03/23/2025 02/0 04/2024, 03/22/2024, 03/21/2024, Additional history exists CKD HGB USE SMARTSET 08643 03/25/202503/25, 03/23/2024, 03/22/2024, Additional history exists Diabetic [...] this encounter Medical Devices Implanted Type Area Lab Specialist Device Identifier Shelf Expiration Date Model / Serial / Lot [place] Suture Biocomposite - Sn/A - [id number] Implanted:Qty: 2 on 12/13/2021 by Moris Jimenez DO at OR [facility] Left: Leg Lower [employer] 07/18/2024 [id number] / N/A / [id number] Vitoss Bbtrauma Foam Pack - [id number] - [id number] Implanted:Qty: 1 on 12/13/2021 by Moris Jimenez DO at OR [facility] Left: Leg Lower MICHA : TRAUMA 01/15/[id number] / [id number] / [id number] System Delivery Triclip Xtw - [id number] Implanted:Qty: 1 on 03/18/2024 at [facility] [employer] 08/11/2025 [id number] / / documented as of this [...] unspecified site Permanent atrial fibrillation ([facility]) Atrial fibrillation Chronic obstructive pulmonary disease, unspecified COPD type ([facility]) Old myocardial infarct Old myocardial infarction Type 2 diabetes mellitus with stage 3b chronic kidney disease, without long-term current use of insulin ([facility]) Hypothyroidism, postablative Other postablative hypothyroidism Generalized anxiety disorder Permanent atrial fibrillation (HCC)- Primary Atrial fibrillation Type 2 diabetes mellitus with stage 3b chronic kidney disease, without long-term current use of insulin ([facility]) Hypertensive heart and kidney disease with chronic diastolic congestive heart failure and stage 3b chronic kidney disease (HCC) COPD, group B, by GOLD 2017 classification ([facility]) Gastroesophageal reflux disease with esophagitis [...] B, by GOLD 2017 classification ([facility]) Major depressive disorder, recurrent, moderate (HCC) Major depressive disorder, recurrent episode, moderate Other persistent atrial fibrillation ([facility]) Generalized anxiety disorder Atherosclerosis of [place] coronary artery without angina pectoris, unspecified whether [place] or transplanted heart Hypothyroidism, postablative Other postablative hypothyroidism Dyslipidemia, goal LDL below 100 Other and unspecified hyperlipidemia Nausea Nausea alone documented in this encounter Advance Directives * [...] Advance Directives occurred with: Patient Care Teams Coat Repair Inspector Relationship Specialty Start Date End Date Mercedes Gorman MD [address] [place] [address] [place] [address] PCP - General Family Medicine 12/30/23 documented as of this encounter
--- OUTSIDE RECORDS SUMMARY | 2024-06-10 06:38 | External Medical Summary | Summary of Care ---
Author Name Unknown Organization [facility] Address 100 [facility] [place] [address] Phone [phone] Care Team Providers Care Crimping Press Operator Name Role Phone Shara Ray MD Primary Care Provide r Reason for Visit * Reason Onset Date Comments [facility]: Maintenance 05/26/2024 Encounter Details Date Type Department Care Team (Late st Contact Info) Description 05/26/2024 Telephone [facility] [place] [address] [facility] [place] [address] Velma Coombs, [facility] [address] [facility] [place] [address] [facility]: Maintenance Allergies Active Allergy [...] needed 50 mL 12/07/19 23 Active Nystatin 321371 UNIT/ML Mouth/Throat SuspensionIndicati ons:Thrush Swish and swallow [...] Chronic right-sided heart failure 03/20/2024 Atherosclerosis of [place] co ronary artery of [place] heart without angina pectoris 04/03/2023 Major depressive [...] leg, left, subsequent encounter 09/2021 Overview (12/05/2021): [facility] ER ulstrasound shows hematoma [...] Assessment & Plan (07/10/2021 12:27 PM EDT): [facility] Call: I would have her do the [...] and amiodarone. On warfarin being managed by [facility] pharmacy. History of TIA (transient ischemic [...] EST): Symptoms well controlled on omeprazole intermediate manager current use of anticoagulant therapy 0 [...] IM/IV Chest Xray Additional Comments: Followed by frit coater - Dr. Rashel Sales [facility] Assessment & Plan (12/07/2022 2:00 [...] 40mg IM/IV CBC Chest Xray Followed by frit coater - Dr. Rashel Sales [facility] Complicated UTI (urinary tract infection) [...] (07/12/2011): Per CKD protocol #1 [employer]BIT-AF Research Other*[id number] 06/02/2010 04/18/2011 Overview (06/02/2010): PROJECT: #[id number], SPONSOR: Aileen, PI: Adolfo De Jesus MD [...] can be closed. CONTACT: Roberto Carlos Huertas, Process Safety Engineering Technologist Type 2 diabetes mellitus wit h [...] CG/0.3 mL, 12 YRS AND ABOVE, IM [facility]) 12/03/2022 COVID-19, mRNA, LNP-s, PF, [...] Telephone Encounter - Velma Coombs LPN - 05/26/2024 8:07 AM EDT Images from the original note were not included. Call to patient had message about device issues Patient having issues with transmission keeps bringing up yesterdays readings and date Message sent to [facility] to troubleshoot documented in this encounter Plan of Treatment Upcoming Encounters Date Type Department Care Team (Late st Contact Info) Description 05/27/2024 7:20 AM EDT Laboratory Lab Mobile Phlebotomy [address] [place] [address] [facility] Mobile Home Draw [address] [place] [address] [place] [address] 05/28/2024 6:00 AM EDT Anticoagulation Centralized Clinical Pharmacy Services, Denia Yee [address] [place] [address] [place] [address] [place] [address] 06/11/2024 5:00 PM EDT [facility] [address] [place] [address] Valentina Laws RN 132 [place] [address] 06/23/2024 2:00 PM EDT Office Visit Hematology/Oncology [facility] [place] 200 [facility] [place] [phone] Bouchra Del Cid CRNP [address] [facility] [place] [address] 06/24/2024 1:40 PM EDT Office Visit Family Medicine [address] [place] [phone] Shara Ray MD [address] [place] [address] [place] [address] 07/14/2024 3:00 PM EDT Cardiac Studies Cardiac Studies, [facility] [address] [place] [phone] 07/15/2024 2:00 PM EDT Office Visit Cardiology, [facility] [address] [place] [phone] Maria Ines Bowers CRNP [address] [place] [address] 08/20/2024 3:00 PM EDT Office Visit Nephrology [address] [place] [address] Aliyah Lacey MD 200 [facility] [place] [address] 12/09/2024 10:00 AM EDT Office Visit Cardiology, [facility] [address] [place] [phone] Hadley Molina MD [address] [place] [address] 01/08/2025 2:00 PM EST Office Visit Family Medicine [address] [place] [phone] Shara Ray MD [address] [place] [address] [place] [address] 03/01/2025 2:40 PM EST Office Visit Nephrology [address] [place] [address] Aliyah Lacey MD [address] [place] [address] 05/19/2025 2:00 PM EDT Office Visit Allergy/Immunology [facility] 200 [facility] [place] [address] Rae Ramirez PA-C [address] [place] [address] Scheduled Procedures Name Priority Associated Diagnoses Date/Ti [...] Additional history exists CKD PHOS USE SMARTSET 16860 03/23/2025 02/0 04/2024, 03/22/2024, 03/21/2024, Additional history exists CKD HGB USE SMARTSET 24756 03/25/202503/25, 03/23/2024, 03/22/2024, Additional history exists Diabetic [...] this encounter Medical Devices Implanted Type Area Licensed Psychologist Director Device Identifier Shelf Expiration Date Model / Serial / Lot [place] Suture Biocomposite - Sn/A - [id number] Implanted:Qty: 2 on 12/13/2021 by Moris Jimenez, [facility]: Leg Lower [employer] 07/18/2024 [id number] / N/A / [id number] Vitoss Bbtrauma Foam Pack - [id number] - [id number] Implanted:Qty: 1 on 12/13/2021 by Moris Jimenez, [facility] Left: Leg Lower MICHA : TRAUMA 01/15/2022 / [id number] / [id number] System Delivery Triclip Xtw - [id number] Implanted:Qty: 1 on 03/18/2024 at [facility] [email or web address] 08/11/2025 [id number] / / documented as of this [...] Advance Directives occurred with: Patient Care Teams Crimping Press Operator Relationship Specialty Start Date End Date Shara Ray MD [address] [place] [address] [place] [phone] PCP - General Family Medicine 12/30/23 documented as of this encounter
--- OUTSIDE RECORDS SUMMARY | 2024-06-10 06:38 | External Medical Summary | Summary of Care ---
Author Name Unknown Organization [facility] Address [address] [place] [address] Phone [phone] Care Team Providers Care Rn Imaging Name Role Phone Shara Ray MD Primary Care Provide r Reason for Visit * Reason Onset Date Comments [facility]: Maintenance 05/26/2024 Encounter Details Date Type Department Care Team (Late st Contact Info) Description 05/26/2024 Telephone [facility] [place] [address] [facility] [address] Velma Coombs, [facility] [address] [facility] [place] [address] [facility]: [...] needed 50 mL 12/07/19 23 Active Nystatin 295639 UNIT/ML Mouth/Throat SuspensionIndicati ons:Thrush Swish and swallow [...] Chronic right-sided heart failure 03/20/2024 Atherosclerosis of [place] ronary artery of [place] heart without angina pectoris 04/03/2023 Major [...] 09/2021 Overview (12/05/2021): [facility] ER ulstrasound shows hematoma calf, INR 4.2, [...] or up the stairs") Medication Regimen: Beta Galnia Therapy: Metoprolol Tartrate VINCENT Inhibitor/ARB Therapy: No VINCENT/ARB/ARNI secondary to: allergy Diuretic therapy: Torsemide Aldactone SGLT2 Inhibitor: No Current SGLT2 (Describe in the Comments) Remote Patient Monitoring [place] [facility] [place]s): Connected Scale Self - Management Plan [...] Assessment & Plan (07/10/2021 12:27 PM EDT): [facility] Call: I would have her do [...] and amiodarone. On warfarin being managed by [facility] pharmacy. History of TIA (transient ischemic [...] EST): Symptoms well controlled on omeprazole terminal makeup operator current use of anticoagulant [...] IM/IV Chest Xray Additional Comments: Followed by ebay reseller - Dr. Rashel Sales [facility] Assessment & Plan (12/07/2022 2:00 PM EDT): [...] 40mg IM/IV CBC Chest Xray Followed by ebay reseller - Dr. Rashel Sales [facility] Complicated UTI (urinary tract infection) 12/20/2021 05/17/2022 [...] (07/12/2011): Per CKD protocol #1 [employer] Other*[id number] 06/02/2010 04/18/2011 Overview (06/02/2010): PROJECT: #[id number], SPONSOR: Aileen, PI: Adolfo De Jesus MD [...] before the encounter can be closed. CONTACT: Rboerto Carlos Huertas, Information Systems Security Manager Type 2 diabetes mellitus wit h [...] CG/0.3 mL, 12 YRS AND ABOVE, [facility] 12/03/2022 COVID-19, mRNA, LNP-s, PF, B ooster, [...] Coombs LPN - 05/26/2024 8:07 AM EDT Call to patient had message about device issues Patient having issues with transmission keeps bringing up yesterdays readings and date Message sent to [facility] to troubleshoot documented in this encounter Plan of Treatment Upcoming Encounters Date Type Department Care Team (Late st Contact Info) Description 05/27/2024 7:20 AM EDT Laboratory Lab Mobile Phlebotomy [address] [place] [address] [facility] Mobile Home Draw [address] [place] [address] [place] [address] 05/28/2024 6:00 AM EDT Anticoagulation Centralized Clinical Pharmacy Services, Denia Yee [address] [place] [address] [place]rí[place] [address] [place] [address] 06/11/2024 5:00 PM EDT Home Visit [facility], [facility] [address] [place] [address] Valentina Laws, TANISHA [address] [place] [address] 06/23/2024 2:00 PM EDT Office Visit Hematology/Oncology [facility] [place] [address] [facility] [place] [phone] Bouchra Del Cid CRNP 400 [facility] [place] [address] 06/24/2024 1:40 PM EDT Office Visit Family Medicine [address] [place] [phone] Shara Ray MD [address] [place] [address] [place] [address] 07/14/2024 3:00 PM EDT Cardiac Studies Cardiac Studies, [facility] [address] [place] [phone] 07/15/2024 2:00 PM EDT Office Visit Cardiology, [facility] [address] [place] [address] Maria Ines Bowers CRNP [address] [place] [address] 08/20/2024 3:00 PM EDT Office Visit Nephrology [address] [place] [address] Aliyah Lacey MD 200 [facility] [place] [address] 12/09/2024 10:00 AM EDT Office Visit Cardiology, [facility] [address] [place] [address] Hadley Molina MD [address] [place] [address] 01/08/2025 2:00 PM EST Office Visit Family Medicine [address] [place] [address] Shara Ray MD [address] [place] [address] [place] [address] 03/01/2025 2:40 PM EST Office Visit Nephrology [address] [place] [address] Aliyah Lacey MD [address] [place] [address] 05/19/2025 2:00 PM EDT Office Visit Allergy/Immunology [facility] 200 [facility] [place] [address] Rae Ramirez PA-C [address] [place] [address] Scheduled Procedures Name Priority Associated Diagnoses Date/Ti [...] Additional history exists CKD PHOS USE SMARTSET 55419 03/23/2025 02/0 04/2024, 03/22/2024, 03/21/2024, Additional history exists CKD HGB USE SMARTSET 84566 03/25/202503/25, 03/23/2024, 03/22/2024, Additional history exists Diabetic [...] this encounter Medical Devices Implanted Type Area [id number] Consultant Device Identifier Shelf Expiration Date Model / Serial / Lot [place] Suture Biocomposite - Sn/A - [id number] Implanted:Qty: 2 on 12/13/2021 by Moris Jimenez, DO at OR [facility] Left: Leg Lower [employer] 07/18/2024 [id number] / N/A / [id number] Vitoss Bbtrauma Foam Pack - [id number] - [id number] Implanted:Qty: 1 on 12/13/2021 by Moris Jimenez DO at OR [facility] Left: Leg Lower MICHA : TRAUMA 01/15/2022 / [id number] / [id number] System Delivery Triclip Xtw - [id number] Implanted:Qty: 1 on 03/18/2024 [place] [facility] Dexetra 08/11/2025 [id number] / / documented as of this [...] Advance Directives occurred with: Patient Care Teams Rn Imaging Relationship Specialty Start Date End Date Shara Ray MD [address] [place] [address] [place] [phone] PCP - General Family Medicine 12/30/23 documented as of this encounter
--- OUTSIDE RECORDS SUMMARY | 2024-06-10 06:38 | External Medical Summary | Summary of Care ---
Author Name Unknown Organization [facility] Address [address] [facility] [place] [place] [address] Phone [phone] Care Team Providers Care Elevator Repairer Helper Name Role Phone Shara Ray MD Primary Care Provide r Reason for Visit * Reason Onset Date Comments [facility]: Maintenance 05/26/2024 Encounter Details Date Type Department Care Team (Late st Contact Info) Description 05/26/2024 Telephone [facility] [place] [facility] [place] [address] Velma Coombs, [facility] [address] [facility] [place] [address] [facility]: [...] needed 50 mL 12/07/19 23 Active Nystatin 167256 UNIT/ML Mouth/Throat SuspensionIndicati ons:Thrush Swish and swallow [...] left, subsequent encounter 09/2021 Overview (12/05/2021): [facility] ER ulstrasound shows hematoma calf, INR [...] & Plan (07/10/2021 12:27 PM EDT): [facility] Call: I would have her do the [...] and amiodarone. On warfarin being managed by [facility] pharmacy. History of TIA (transient ischemic [...] PM EST): Symptoms well controlled on omeprazole keno terminal [...] Chest Xray Additional Comments: Followed by manager pipeline - Dr. Rashel Sales [facility] Assessment & Plan (12/07/2022 2:00 PM [...] IM/IV CBC Chest Xray Followed by manager pipeline - Dr. Rashel Sales [facility] Complicated UTI (urinary tract infection) 12/20/2021 [...] (07/12/2011): Per CKD protocol #1 [employer] Other*[id number] 06/02/2010 04/18/2011 Overview (06/02/2010): PROJECT: #[id number], SPONSOR: Aileen, PI: Adolfo De Jesus MD [...] can be closed. CONTACT: Roberto Carlos Huertas, Filler Operator Type 2 diabetes mellitus wit h [...] CG/0.3 mL, 12 YRS AND ABOVE, IM ([facility]) 12/03/2022 COVID-19, mRNA, LNP-s, PF, B ooster, [...] yesterdays readings and date Message sent to to troubleshoot Denies any issues at this time documented in this encounter Plan of Treatment Upcoming Encounters Date Type Department Care Team (Late st Contact Info) Description 05/27/2024 7:20 AM EDT Laboratory Lab Mobile Phlebotomy [place] [address] [address] [address] [facility] Mobile Home Draw [facility] [address] [facility] [place] [address] 05/28/2024 6:00 AM EDT Anticoagulation Centralized Clinical Pharmacy Services, Denia Yee [address] [place] [address] [place]rí[place] [address] [facility], [address] [place] [address] 06/11/2024 5:00 PM EDT [facility] [address] [place] [address] Valentina Laws, TANISHA [address] [place] [address] 06/23/2024 2:00 PM EDT Office Visit Hematology/Oncology [facility] [place] 200 [facility] [place] [phone] Bouchra Del Cid CRNP 400 [facility] [place] [address] 06/24/2024 1:40 PM EDT Office Visit Family Medicine [address] [place] [phone] Shara Ray MD [address] [place] [address] [place] [address] 07/14/2024 3:00 PM EDT Cardiac Studies Cardiac Studies, [facility] [place] [phone] 07/15/2024 2:00 PM EDT Office Visit Cardiology, [facility] [address] [place] [phone] Maria Ines Bowers CRNP [address] [place] [address] 08/20/2024 3:00 PM EDT Office Visit Nephrology [address] [place] [address] Aliyah Lacey MD 200 [facility] [place] [address] 12/09/2024 10:00 AM EDT Office Visit Cardiology, [facility] [address] [place] [address] Hadley Molina MD [address] [place] [address] 01/08/2025 2:00 PM EST Office Visit Family Medicine [address] [place] [address] Shara Ray MD [address] [place] [address] [place] [address] 03/01/2025 2:40 PM EST Office Visit Nephrology [address] [place] [address] Alyiah Lacey MD [address] [place] [address] 05/19/2025 2:00 PM EDT Office Visit Allergy/Immunology [facility] [place] [address] [place] [address] Rae Ramirez PA-C [address] [place] [address] Scheduled Procedures Name Priority Associated Diagnoses Date/Ti [...] Additional history exists CKD PHOS USE SMARTSET 02233 03/23/2025 02/0 04/2024, 03/22/2024, 03/21/2024, Additional history exists CKD HGB USE SMARTSET 87188 03/25/202503/25, 03/23/2024, 03/22/2024, Additional history exists Diabetic [...] this encounter Medical Devices Implanted Type Area Entertainment Reporter Device Identifier Shelf Expiration Date Model / Serial / Lot [place] Suture Biocomposite - Sn/A - [id number] Implanted:Qty: 2 on 12/13/2021 by Moris Jimenez, DO at OR [facility] Left: Leg Lower [employer] 07/18/2024 AR-2324BCC / N/A / [id number] Vitoss Bbtrauma Foam Pack - [id number] - [id number] Implanted:Qty: 1 on 12/13/2021 by Moris Jimenez, DO at OR [facility] Left: Leg Lower MICHA : TRAUMA 01/15/2022 / [id number] / [id number] System Delivery Triclip Xtw - [id number] Implanted:Qty: 1 on 03/18/2024 at [facility] [employer] 08/11/2025 [id number] / / documented as of this [...] Advance Directives occurred with: Patient Care Teams Elevator Repairer Helper Relationship Specialty Start Date End Date Shara Ray MD [address] [place] [address] [place] [address] PCP - General Family Medicine 12/30/23 documented as of this encounter
--- OUTSIDE RECORDS SUMMARY | 2024-06-10 06:38 | External Medical Summary | Summary of Care ---
Author Name Unknown Organization [facility] Address [address] [place] [address] Phone [phone] Care Team Providers Care Founder President And Ceo Name Role Phone Shara Ray MD Primary Care Provide r Reason for Visit * Reason Comments NEW PATIENT * Evaluate & Treat - Unlimited Visits (Within 30 days (routine)) - Authorized Specialty Diagnoses / Procedures Referred By Justyn gonzalez Referred To Contact Gastroenterology Diagnoses Esophageal dysmotility Helen Andujar, DO [address] [place] [address] Phone: tel: fax: Referral ID Status Reason Start Date Expiration Date Visits Requested Visits Authorized [id number] Authorized Specialty Services Required 03/23/[phone] Encounter Details Date Type Department Care Team (Late st Contact Info) Description 05/25/2024 10:40 AM EDT Office Visit Gastroenterology, [place] [address] [place] [address] Hakan Berg PA-C [address], [place] [id number] Dysphagia, unspecified type*; Esophageal dysmotility Allergies Active Allergy Reactions Criticality Noted Date [...] needed 50 mL 12/07/19 23 Active Nystatin [id number] UNIT/ML Mouth/Throat SuspensionIndicati ons:Thrush Swish and swallow [...] 05/23/2024 1:12 PM EDT 05/22/19 25 Active documented as of this encounter (statuses as of 05/26/2024) Active Problems Problem Noted Date Diagnosed Date S/P tricuspid valve repair 04/09/2024 Hypothyroidism 04/09/2024 Hyperparathyroidism 04/09/2024 Moderate tricuspid regurgitation 03/23/2024 Esophageal dysmotility 03/23/2024 Chronic right-sided heart failure 03/20/2024 Atherosclerosis of [place] co ronary artery of [place] heart without angina pectoris 04/03/2023 Major depressive [...] -- -- -- 60 BNP (NT-PRO-BNP) - [facility] pg/mL 665* -- -- -- -- ESTIMATED [...] Assessment & Plan (07/10/2021 12:27 PM EDT): [facility] Call: I would have her [...] and amiodarone. On warfarin being managed by [facility] pharmacy. History of TIA (transient ischemic [...] IM/IV Chest Xray Additional Comments: Followed by bandmill operator - Dr[facility] Rashel Sales [facility] 40mg IM/IV CBC Chest Xray Followed by bandmill operator - Dr. Rashel Sales [facility] [...] (07/12/2011): Per CKD protocol #1 [employer] Other*[id number] 06/02/2010 04/18/2011 Overview (06/02/2010): PROJECT: #[id number], SPONSOR: Aileen, PI: Adolfo De Jesus MD [...] can be closed. CONTACT: Roberto Carlos Huertas, Executive Vice President Business Development Type 2 diabetes mellitus wit h hemoglobin [...] CG/0.3 mL, 12 YRS AND ABOVE, IM ([employer]) 12/03/2022 COVID-19, mRNA, LNP-s, PF, B ooster, [...] Sign Reading Time Taken Comments Blood Pressure 112/70 05/25/2024 10:45 AM EDT Pulse 90 05/25/2024 10:45 AM EDT Temperature - - Respiratory Rate - - Oxygen Saturation 100% 05/25/2024 10:45 AM EDT Inhaled Oxygen Concentration - - Weight 62.6 kg (138 lb) 05/25/2024 10:45 AM EDT Height - - Body Mass Index 26.95 03/26/2024 1:44 PM EST documented in this [...] documented in this encounter Progress Notes * Hakan Berg PA-C - 05/25/2024 10:46 AM EDT Subjective: Abdi Bowling is a 68 year old female. Chief Complaint Patient presents with NEW PATIENT HPI: Pt presents with cousin/caregiver for return visit. Last seen in GI clinic September [address] Matias for esophageal dysphagia Pt had been admitted to [facility] July 2021 and underwent EGD with dilatation with resolution of her sxs She was to return prn Admitted to [facility] 03/13/24 - 03/23/24 for scheduled Tri Clip procedure Post-op, c/o new onset of dysphagia Evaluated by speech therapy, noted to have normal oral and pharyngeal phases Recommended esophagram which showed suspected esophageal dysmotility for instance presbyesophagus vs chronic weakening of GERD. Esophagus was deviated to the right secondary to atrial enlargement Referred to GI as outpatient Has hx of dysphagia x 6-7 years C/o intermittent dysphagia with solids only Points to base of anterior neck as location No specific food triggers No problem with liquids or pills Not coughing or choking with meals No heartburn, abd pain, n/v/c/d, melena, hematochezia No fever, weight loss Bowel movements every other day EGD with dilation helpful in the past No tobacco Occasional glass of wine No NSAIDs PMH/PSH/SHx/FHx/Meds/Allergies reviewed with pt Chart reviewed FLUORO ESOPHAGRAM ENTIRE-03/20/2024 FINDINGS Parts Counter Clerk view of the chest obtained prior to the procedure showed stable cardiomegaly, unchanged positioning of a cardiac loop monitor, prosthetic mitral valve, and recently placed tricuspid valve clip. A limited exam was performed given the patient's condition and relative immobility. The patient swallowed without difficulty. The opacified esophagus was deviated to the right secondary to atrial enlargement. In the supine projection, there was delayed progression of contrast into the stomach with a few tertiary contractions of the distal esophagus. When raising the patient to an incline, there was relatively prompt emptying of the esophagus. A 13 mm barium pill immediately transited the esophagus and emptied into the stomach in an upright position. Esophageal reflux could not be induced during the exam. There was no evidence of hiatal hernia. IMPRESSION Suspect an esophageal dysmotility, for instance presbyesophagus versus the chronic weakening of GERD. Definite reflux was not seen during this exam. Unclear to what degree displacement of the esophagus by atrial dilation may be contributing. Retention of contrast within the esophagus was inconspicuous in the upright position as compared with supine imaging. Colonoscopy 02/24/20 - The examined portion of the ileum was normal. - Diverticulosis in the sigmoid colon. - Internal hemorrhoids. - The examination was otherwise normal on direct and retroflexion views. 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 S/P mitral valve replacement Gastroesophageal reflux disease with esophagitis without hemorrhage Generalized osteoarthritis Hypothyroidism, postablative Atherosclerosis of [place] coronary artery of [place] heart without angina pectoris Dyslipidemia, goal LDL [...] S/P tricuspid valve repair Hypothyroidism Hyperparathyroidism (HCC) Past Surgical History: Procedure Laterality Date ARTHROPLASTY KNEE TOTAL Left 09/23/2018 [facility] had post op hemarthrosis required transfusions Dr Cormier ARTHROPLASTY KNEE TOTAL Right 01/13/2019 [facility] CATHETERIZE LEFT HEART THRU SKIN [address] ANGIOGRAPHY HEAD W/CONTRAST/NONCONTRAST N/A 01/13/2021 arteries patent COLONOSCOPY N/A 02/24/2020 internal nemorrhoids, sigmoid diverticulosis, repeat 10 years COLONOSCOPY, DIAGNOSTIC (RECTUM) 07/16/2013 diverticulosis, poor prep, repeat 3 yrs/COLONOSCOPY FLEXIBLE PROXIMAL DIAGNOSTIC performed by Louie Childress MD at ENDOSCOPY [facility] COLONOSCOPY, DIAGNOSTIC (RECTUM) 02/24/2020 diverticulosis, repeat 10 yrs / COLONOSCOPY FLEXIBLE PROXIMAL DIAGNOSTIC performed by Louie Childress MD at ENDOSCOPY [facility] CT HEAD/BRAIN WO CONTRAST N/A 01/13/2021 no intracranial abnormalities, parietal scalp effusion from fall DISTAL TIBIA FX W/FIXATION OF TIBIA, OPEN Left 12/13/2021 OPEN TREATMENT OF PILON FRACTURE TIBIA ONLY performed by Moris Jimenez DO at OR [facility] DISTAL TIBIA FX W/FIXATION OF TIBIA, OPEN Left 12/11/2021 OPEN TREATMENT OF PILON FRACTURE TIBIA ONLY performed by Moris Jimenez DO at OR [facility] EEG 05/20/2018 normal EGD, FLEXIBLE, DIAGNOSTIC N/A 02/24/2020 hiatal hernia, normal esophagus and duodenum, inflammation gastric antrum EGD, FLEXIBLE, DIAGNOSTIC 02/24/2020 gastritis, hiatal hernia / ESOPHAGOGASTRODUODENOSCOPY (EGD), FLEXIBLE, TRANSORAL, DIAGNOSTIC performed by Louie Childress MD at ENDOSCOPY [facility] EGD, FLEXIBLE, DIAGNOSTIC 07/24/2021 normal / INPT [facility] EGD, FLEXIBLE, INSERT WIRE, PASS [...] by Silverio Arevalo MD at CARDIAC LABS [facility] REMOVAL OF APPENDIX 1965 REMOVE GALLBLADDER 1987 [...] VENOUS LE UNILAT Left 02/27/2021 no DVT Family History Problem Relation Name Age of Onset Eczema Mother Other (COVID) Mother Multi system organ failure, age 90 Cancer Father Bladder Allergies Brother Cat and dog allergies Cancer Grandfather (Maternal) Leukemia Heart Disorder Uncle (Unspecified) Social History Tobacco Use Smoking status: Never Passive exposure: Never Smokeless tobacco: Never Tobacco comments: No passive smoke exposures Vaping Use Vaping status: Never Used Substance Use Topics Alcohol use: Yes Alcohol/week: 1.0 standard drink of alcohol Types: 1 5 oz of wine per week Comment: wine daily Drug use: No Current Outpatient Medications Medication Sig Dispense Refill [...] ulcers as needed 50 mL 0 Nystatin 887272 UNIT/ML Mouth/Throat Suspension Swish and swallow 5 [...] by mouth at bedtime.) 300 Tablet 3 Combivent Respimat 20-100 MCG/ACT Inhalation Aerosol Solution [...] BY MOUTH EVERY MORNING 100 Tablet 1 Nitroglycerin 0.4 MG Sublingual Tablet Sublingual (Nitrostat) PLACE 1 TABLET UNDER THE TONGUE EVERY5 MINUTES UP TO 3 DOSES NEEDED FOR CHEST PAIN. IF NO RELIEF CALL 911 OR GO TO ER 75 Tablet 0 Torsemide 100 MG Oral Tablet (Demadex) Take 1 Tablet by mouth in the morning. (Patient taking differently: Take 1 Tablet by mouth in the morning. 100 mg in the AM & 50 mg in the afternoon.) 90 Tablet 3 Citalopram Hydrobromide 10 MG [...] mouth in the morning. 90 Tablet 3 Levothyroxine Sodium 100 MCG Oral Tablet (Levoxyl) TAKE ONE TABLET by MOUTH DAILY FIRST THING IN THE MORNING AT LEAST 30 MINUTES PRIOR TO BREAKFAST OR OTHER MEDS 100 Tablet 1 Potassium Chloride Jodie ER 10 MEQ Oral Tablet Extended Release Take 2 Tablets by mouth in the morning and 2 Tablets before bedtime. 540 Tablet 3 Ipratropium-Albuterol 0.5-2.5 (3) MG/3ML Inhalation Solution (Duoneb) inhale one vial via nebulizerfour times daily as needed for shortness of breath or wheezing 1080 mL 0 Metoprolol Succinate ER 25 MG Oral Tablet Extended Release 24 Hour (toPROL XL) Take 1 Tablet by mouth at bedtime. Metoprolol Succinate ER 50 MG Oral Tablet Extended Release 24 Hour (toPROL XL) Take 1 Tablet by mouth in the morning. 90 Tablet 1 Benzonatate 100 MG Oral Capsule Take 1 Capsule by mouth 3 times a day as needed for Cough. 30 Capsule 1 Azelastine HCl 0.1 % Nasal Solution (Astelin) Administer 2 Sprays into nostril in the morning and 2Sprays before bedtime. 90 mL 3 Warfarin Sodium 2.5 MG Oral Tablet (Coumadin) Take as instructed by coumadin pharmacist/clinic - 3 tablets on Mondays, 2 tablets on all other days. 180 Tablet 1 No current facility-administered medications for this visit. Review of patient's allergies indicates: Allergen Reactions Budesonide Other (Please comment) trouble breathing Hydroxyzine Other reaction(s): DYSTONIA Metformin Other reaction(s): DIARRHEA Vincent Inhibitors cough Gabapentin Neuro complications (Please comment) confusion Lovenox [Enoxaparin] Oxycodone " numb all over" Phenothiazines Unknown Nuchal dystonia Prochlorperazine Neuro complications (Please comment) dystonia Promethazine Tetracycline Nausea/vomiting Objective: Wt 62.6 kg (138 lb) | BMI 26.95 kg/m² | BSA 1.63 m² General: alert, no distress, well nourished and well developed Eye Exam: Conjunctiva are pink and non-injected, sclera clear Heart: regular rate & rhythm and no murmurs. Valve click Lungs: clear to auscultation, No W/R/R Abd: +BS x 4, soft, NT/ND, no masses or organomegaly Extremities: no cyanosis Wt Readings from Last 6 Encounters: 05/25/24 62.6 kg (138 lb) 05/20/24 61.9 kg (136 lb 6.4 oz) 05/19/24 61.8 kg (136 lb 4.8 oz) 05/08/24 61.7 kg (136 lb 1.6 oz) 04/24/24 61.2 kg (135 lb) 04/22/24 61.2 kg (135 lb) ASSESSMENT: ICD-10-CM 1. Dysphagia, unspecified type R13.10 2. Esophageal dysmotility K22.4 PLAN: Egd, flexible, diagnostic with consideration of esophageal dilation Chew food well, take small bites Drink fluids with meals Take your time eating On Coumadin, will need to stop prior to EGD. Cannot use Lovenox bridge since developed DVT while onLovenox. Will need to be started on Heparin prior to EGD. RTC 3-4 months Hakan Berg PA-C Gastroenterology, [address] [address] Cc: MD Helen Peters DO documented in this encounter Plan of Treatment Upcoming Encounters Date Type Department Care Team (Late st Contact Info) Description 05/27/2024 7:20 AM EDT Laboratory Lab Mobile Phlebotomy [address] [place] [address] [facility] Mobile Home Draw [address] [place] [address] [place] [address] 05/28/2024 6:00 AM EDT Anticoagulation [facility], Denia Yee [address] [place] [address] [place] [address] [place] [address] 06/11/2024 5:00 PM EDT Home Visit [facility], [facility] [address] [facility] [place] [address] Valentina Laws, TANISHA [address] [facility] [place] [address] 06/23/2024 2:00 PM EDT Office Visit Hematology/Oncology [facility] [address] [facility] [place] [phone] Bouchra Del Cid CRNP [address] [facility] [place] [address] 06/24/2024 1:40 PM EDT Office Visit Family Medicine [address] [place] [phone] Shara Ray MD [address] [place] [address] [place] [address] 07/14/2024 3:00 PM EDT Cardiac Studies Cardiac Studies, [facility] [address] [place] [phone] 07/15/2024 2:00 PM EDT Office Visit Cardiology, [facility] [address] [place] [phone] Maria Ines Bowers CRNP [address] [place] [address] 08/20/2024 3:00 PM EDT Office Visit Nephrology [address] [place] [address] Aliyah Lacey MD [address] [place] [address] 12/09/2024 10:00 AM EDT Office Visit Cardiology, [facility] [address] [place] [phone] Hadley Molina MD [address] [place] [address] 01/08/2025 2:00 PM EST Office Visit Family Medicine [address] [place] [phone] Shara Ray MD [address] [place] [address] [place] [address] 03/01/2025 2:40 PM EST Office Visit Nephrology [address] [place] [address] Aliyah Lacey MD [address] [place] [address] 05/19/2025 2:00 PM EDT Office Visit Allergy/Immunology [facility] [place] [address] [place] [address] Rae Ramirez PA-C [facility] [place] [address] Scheduled Orders Name Type Priority Associated Diagnoses Orde r Schedule EGD, FLEXIBLE, DIAGNOSTIC Procedures Routine Dysphagia, unspecified type Esophageal dysmotility Ordered: 05/25/2024 Scheduled Procedures Name Priority Associated Diagnoses Date/Ti [...] Additional history exists CKD PHOS USE SMARTSET 08646 03/23/2025 02/0 04/2024, 03/22/2024, 03/21/2024, Additional history exists CKD HGB USE SMARTSET 65157 03/25/202503/25, 03/23/2024, 03/22/2024, Additional history exists Diabetic [...] this encounter Medical Devices Implanted Type Area In Class Special Education Teacher Device Identifier Shelf Expiration Date Model / Serial / Lot Kennard Suture Biocomposite - Sn/A - [id number] Implanted:Qty: 2 on 12/13/2021 by Moris Jimenez DO at OR [facility] Left: Leg Lower [employer] 07/18/2024 [id number] / N/A / [id number] [employer] Bbtrauma Foam Pack - [id number] - [id number] Implanted:Qty: 1 on 12/13/2021 by Moris Jimenez DO at OR [facility] Left: Leg Lower MICHA : TRAUMA 01/15/[id number] / [id number] / [id number] System Delivery Triclip Xtw - [id number] Implanted:Qty: 1 on 03/18/2024 at CARDIAC LABS [facility] [employer] 08/11/2025 [id number] / / documented as of this encounter Visit Diagnoses Diagnosis Gastroesophageal reflux disease with esophagitis without hemorrhage- Primary Type 2 diabetes mellitus with stage 3b chronic kidney disease, without long-term current use of insulin ([facility]) Permanent atrial fibrillation (HCC) Atrial fibrillation Restless legs syndrome Restless legs syndrome (RLS) S/P mitral valve replacement Heart valve replaced by other means Hypertensive heart and kidney disease with chronic diastolic congestive heart failure and stage 3b chronic kidney disease ([facility]) Recurrent falls Personal history of fall Hypertensive heart and kidney disease with chronic diastolic congestive heart failure and stage 3b chronic kidney disease (HCC)- Primary Intramuscular hematoma- Primary Contusion of unspecified site Permanent atrial fibrillation ([facility]) Atrial fibrillation Chronic obstructive pulmonary disease, unspecified COPD type ([facility]) Old myocardial infarct Old myocardial infarction Type 2 diabetes mellitus with stage 3b chronic kidney disease, without long-term current use of insulin ([facility]) Hypothyroidism, postablative Other postablative hypothyroidism Generalized anxiety disorder Permanent atrial fibrillation (HCC)- Primary Atrial fibrillation Type 2 diabetes mellitus with stage 3b chronic kidney disease, without long-term current use of insulin ([facility]) Hypertensive heart and kidney disease with chronic diastolic congestive heart failure and stage 3b chronic kidney disease (HCC) COPD, group B, by GOLD 2017 classification ([facility]) Gastroesophageal reflux disease with esophagitis without [...] by GOLD 2017 classification ([facility]) Major depressive disorder, recurrent, moderate (HCC) Major depressive disorder, recurrent episode, moderate Other persistent atrial fibrillation ([facility]) Generalized anxiety disorder Atherosclerosis of [place] coronary artery without angina pectoris, unspecified whether [place] or transplanted heart Hypothyroidism, postablative Other postablative hypothyroidism Dyslipidemia, goal LDL below 100 Other and unspecified hyperlipidemia Dysphagia, unspecified type- Primary Esophageal dysmotility Dyskinesia of esophagus documented in this encounter Advance Directives * [...] Advance Directives occurred with: Patient Care Teams Founder President And Ceo Relationship Specialty Start Date End Date Shara Ray MD [address] [place] [address] [place] [phone] PCP - General Family Medicine 12/30/23 documented as of this encounter
--- OUTSIDE RECORDS SUMMARY | 2024-06-10 06:39 | External Medical Summary | Summary of Care ---
Author Name Unknown Organization [facility] Address [address] [place] [address] Phone [phone] Care Team Providers Care Engagement Specialist Name Role Phone Shara Ray MD Primary Care Provide r Reason for Visit * Reason Onset Date Comments Order Request 05/22/2024 Renewal oxygen o rders Encounter Details Date Type Department Care Team (Late st Contact Info) Description 05/22/[address] [place] [address] Shara Ray MD [address] [place] [address] [place] [phone] Order Request (Renewal oxygen orders) Allergies Active Allergy Reactions Criticality Noted Date [...] as of this encounter (statuses as of 05/22/2024) Medications acetaminophen (TYLENOL) 500 MG Tablet Take [...] needed 50 mL 12/07/19 23 Active Nystatin 257161 UNIT/ML Mouth/Throat SuspensionIndicati ons:Thrush Swish and swallow [...] mg OralQID PRN, Pain, Severe, Reported on 05/20/2024 Buprenorphine 5 MCG/HR Transdermal Patch Weekly (Butrans) [...] Patient taking differently:20 mg OralQ-1999, Reported on 05/20/2024 rOPINIRole HCl 2 MG Oral Tablet (Requip)Indication s:Restless legs syndrome Take 1 Tablet by mouth in the morning and 1 Tablet at noon and 1 Tablet before bedtime. 300 Tablet 3 05/07/2024 2:51 PM EDT 10/22/19 24 Active Additional Information Patient taking differently:2 mg OralHS, Reported on 05/20/2024 Combivent Respimat 20-100 MCG/ACT Inhalation Aerosol Solution [...] 50 mg in the afternoon, Reported on 05/20/2024 Citalopram Hydrobromide 10 MG Oral Tablet (CeleXA)Indication [...] on all other days. 180 Tablet 1 05/22/19 25 Active documented as of this encounter (statuses as of 05/22/2024) Active Problems Problem Noted Date Diagnosed Date S/P tricuspid valve repair 04/09/2024 Hypothyroidism 04/09/2024 Hyperparathyroidism 04/09/2024 Moderate tricuspid regurgitation 03/23/2024 Esophageal dysmotility 03/23/2024 Chronic right-sided heart failure 03/20/2024 Atherosclerosis of [place] co ronary artery of [place] heart without angina pectoris 04/03/2023 Major depressive [...] leg, left, subsequent encounter 09/2021 Overview (12/05/2021): [facility] ER [...] Assessment & Plan (07/10/2021 12:27 PM EDT): [facility] Call: I would have her do [...] and amiodarone. On warfarin being managed by [facility] pharmacy. History of TIA (transient ischemic [...] PM EST): Symptoms well controlled on omeprazole [facility] [...] as of this encounter (statuses as of 05/22/2024) Resolved Problems Problem Noted Date Diagnosed Date [...] Chest Xray Additional Comments: Followed by clinical trial assistant - Dr. Rashel Sales [facility] Assessment & Plan (12/07/2022 2:00 [...] 40mg IM/IV CBC Chest Xray Followed by clinical trial assistant - Dr. Rashel Sales [facility] - [...] (07/12/2011): Per CKD protocol #1 ORBIT-AF Research Other*[id number] 06/02/2010 04/18/2011 Overview (06/02/2010): PROJECT: #[id number], SPONSOR: Aileen, PI: Adolfo De Jesus MD [...] can be closed. CONTACT: Roberto Carlos Huertas, Mounter Smoking Pipe Type 2 diabetes mellitus wit h hemoglobin [...] as of this encounter (statuses as of 05/22/2024) Immunizations Name Administration Dates Next Due COVID-19 mRNA, LNP-s, No Pre serve, 2-Dose Series (Moderna) 04/19/2020,03/22/2020 COVID-19, MRNA-LNP, PF, 30 M CG/0.3 mL, 12 YRS AND ABOVE, IM ([facility]) 12/03/2022 COVID-19, mRNA, LNP-s, PF, B ooster, [...] encounter Miscellaneous Notes * Telephone Encounter - Kaitlynn Barnes CMA - 05/22/2024 11:14 AM EDT Printed and faxed to [facility]. Number listed * Telephone Encounter - Shara Ray MD - 05/22/2024 10:10 AM EDT Order signed * Telephone Encounter - Omayra Rosales CMA - 05/22/2024 7:29 AM EDT Order is expiring. Please place renewal for oxygen. Needs Faxed to Cathi Hendricks at [place] [facility] with clinic note and oxygen testing. documented in this encounter Plan of Treatment Upcoming Encounters Date Type Department Care Team (Late st Contact Info) Description 05/25/2024 10:40 AM EDT Office [facility] [place] [facility] [place] [address] Hakan Berg PA-C [address] [facility] Ul[place]ottes[place] [address] 05/27/2024 7:20 AM EDT Laboratory Lab Mobile Phlebotomy [address] [place] [address] [facility] Mobile Home Draw [address] [place] [address] 05/28/2024 6:00 AM EDT Anticoagulation Centralized Clinical Pharmacy Services, Denia Yee [address] [place] [address] [place] Rodríguez [address] [place] [address] 06/11/2024 5:00 PM EDT [facility], [facility] [address] [place] [address] Valentina Laws RN [address] [place] [address] 06/23/2024 2:00 PM EDT Office Visit Hematology/Oncology [facility] 200 [facility] [place] [address] Bouchra Del Cid CRNP 400 [facility] [place] [address] 06/24/2024 1:40 PM EDT Office Visit Family Medicine [address] [place] [address] Shara Ray MD [address] [place] [address] [place] [address] 07/14/2024 3:00 PM EDT [facility] [address] [place] [phone] 07/15/2024 2:00 PM EDT Office Visit Cardiology, [facility] [address] [place] [phone] Maria Ines Bowers CRNP [address] [place] [address] 08/20/2024 3:00 PM EDT Office Visit Nephrology [address] [place] [address] Aliyah Lacey MD 200 [facility] [place] [address] 12/09/2024 10:00 AM EDT Office Visit Cardiology, [facility] [address] [place] [address] Hadley Molina MD [address] [place] [address] 01/08/2025 2:00 PM EST Office Visit Family Medicine [address] [place] [address] Shara Ray MD [address] [place] [address] [place] [address] 03/01/2025 2:40 PM EST Office Visit Nephrology [address] [place] [address] Aliyah Lacey MD 200 [facility] [place] [address] 05/19/2025 2:00 PM EDT Office [facility] 200 [facility] [place] [address] Rae Ramirez PA-C 200 [facility] [place] [address] Scheduled Procedures Name Priority Associated Diagnoses Date/Ti [...] Additional history exists CKD PHOS USE SMARTSET 34831 03/23/2025 02/0 04/2024, 03/22/2024, 03/21/2024, Additional history exists CKD HGB USE SMARTSET 47019 03/25/202503/25, 03/23/2024, 03/22/2024, Additional history exists Diabetic [...] this encounter Medical Devices Implanted Type Area Holistic Pulser Device Identifier Shelf Expiration Date Model / Serial / Lot Spurgeon Suture Biocomposite - Sn/A - [id number] Implanted:Qty: 2 on 12/13/2021 by Moris Jimenez DO at OR [facility] Left: Leg Lower [employer] 07/18/2024 AR-[id number] / N/A / [id number] Vitoss Bbtrauma Foam Pack - [id number] - [id number] Implanted:Qty: 1 on 12/13/2021 by Moris Jimenez DO at OR [facility] Left: Leg Lower MICHA : TRAUMA 01/15/2022 [id number] / [id number] / [id number] System Delivery Triclip Xtw - [id number] Implanted:Qty: 1 on 03/18/2024 at [facility] [employer] 08/11/2025 [id number] / / documented as of this [...] fibrillation (HCC) Generalized anxiety disorder Atherosclerosis of [place] coronary artery without angina pectoris, unspecified whether [place] or transplanted heart Hypothyroidism, postablative Other postablative hypothyroidism Dyslipidemia, goal LDL below 100 Other and unspecified hyperlipidemia Nocturnal hypoxia- Primary Hypoxemia documented in this encounter Advance Directives * [...] Advance Directives occurred with: Patient Care Teams Engagement Specialist Relationship Specialty Start Date End Date Shara Ray MD [address] [place] [address] [place] [address] PCP - General Family Medicine 12/30/23 documented as of this encounter
--- OUTSIDE RECORDS SUMMARY | 2024-06-10 06:39 | External Medical Summary | Summary of Care ---
Author Name Unknown Organization [facility] Address [address] [place] [facility] [place] [address] Phone [phone] Care Team Providers Care Residential Gas Heat Technician Name Role Phone Shara Ray MD Primary Care Provide r Reason for Visit * Reason Onset Date Comments Order Request 05/22/2024 Renewal oxygen o rders Encounter Details Date Type Department Care Team (Late st Contact Info) Description 05/22/[address] [place] [address] Shara Ray MD [address] [place] [address] [place] [phone] Order Request (Renewal oxygen orders) Allergies Active [...] needed 50 mL 12/07/19 23 Active Nystatin 371687 UNIT/ML Mouth/Throat SuspensionIndicati ons:Thrush Swish and swallow [...] Chronic right-sided heart failure 03/20/2024 Atherosclerosis of [place] ronary artery of [place] heart without angina pectoris 04/03/2023 Major depressive [...] leg, left, subsequent encounter 09/2021 Overview (12/05/2021): [facility] ER ulstrasound shows hematoma calf, [...] and amiodarone. On warfarin being managed by [facility] pharmacy. History of TIA (transient [...] IM/IV Chest Xray Additional Comments: Followed by transformation consultant - Dr. Rashel Sales [facility] Assessment & Plan (12/07/2022 2:00 [...] 40mg IM/IV CBC Chest Xray Followed by transformation consultant - Dr. Rashel Sales [facility] Complicated UTI (urinary tract infection) [...] (07/12/2011): Per CKD protocol #1 ORBIT-AF Research Other*[id number] 06/02/2010 04/18/2011 Overview (06/02/2010): PROJECT: #[id number], SPONSOR: Aileen, PI: Adolfo De Jesus MD [...] can be closed. CONTACT: Roberto Carlos Huertas, Colorer Machine Type 2 diabetes mellitus wit h [...] CG/0.3 mL, 12 YRS AND ABOVE, IM ([facility] 12/03/2022 COVID-19, mRNA, LNP-s, PF, [...] EDT Printed and faxed to [facility]. Number listed * Telephone Encounter - Shara Ray MD - 05/22/2024 10:10 AM EDT Order signed * Telephone Encounter - Omayra Rosales CMA - 05/22/2024 7:29 AM EDT Order is expiring. Please place renewal for oxygen. Needs Faxed to Cathi Hendricks at [place] [facility] with clinic note and oxygen testing. documented in this encounter Plan of Treatment Upcoming Encounters Date Type Department Care Team (Late st Contact Info) Description 05/25/2024 10:40 AM EDT Office [facility] [place] [facility] [place] [address] Hakan Berg PA-C [address] [facility] UlrichVermillionJOSÉ M[place]EL [address] 05/27/2024 7:20 AM EDT Laboratory Lab Mobile Phlebotomy [address] [place] [address] [facility] Mobile Home Draw [address] [employer] [place]ikh [address] 05/28/2024 6:00 AM EDT Anticoagulation Centralized Clinical Pharmacy Services, Denia Yee [address] [place] [address] [place] Rodríg[place] [address] [place] [address] 06/11/2024 5:00 PM EDT [facility], [facility] [address] [place] [address] Valentina Laws RN [address] [place] [address] 06/23/2024 2:00 PM EDT Office Visit Hematology/Oncology [facility] 200 [facility] [place] [address] Bouchra Del Cid CRNP 400 [facility] [place] [address] 06/24/2024 1:40 PM EDT Office Visit Family Medicine [address] [phone] Shara Ray MD [address] [place] [address] [place] [address] 07/14/2024 3:00 PM EDT [facility] [address] [place] [phone] 07/15/2024 2:00 PM EDT Office Visit Cardiology, [facility] [address] [place] [phone] Maria Ines Bowers CRNP [address] [place] [address] 08/20/2024 3:00 PM EDT Office Visit Nephrology [address] [place] [address] Aliyah Lacey MD 200 [facility] [place] [address] 12/09/2024 10:00 AM EDT Office Visit Cardiology, [facility] [address] [place] [address] Hadley Molina MD [address] [place] [address] 01/08/2025 2:00 PM EST Office Visit Family Medicine [address] [place] [address] Shara Ray MD [address] [place] [address] [place] [address] 03/01/2025 2:40 PM EST Office Visit Nephrology [address] [place] [address] Aliyah Lacey MD 200 [facility] [place] [address] 05/19/2025 2:00 PM EDT Office Visit Allergy/Immun[facility] 200 [facility] [place] [address] Rae Ramirez PA-C 200 [facility] [place] [address] Scheduled Procedures Name Priority Associated Diagnoses Date/Ti [...] Additional history exists CKD PHOS USE SMARTSET 13029 03/23/2025 02/0 04/2024, 03/22/2024, 03/21/2024, Additional history exists CKD HGB USE SMARTSET 68904 03/25/202503/25, 03/23/2024, 03/22/2024, Additional history exists Diabetic [...] this encounter Medical Devices Implanted Type Area Shoe Salesperson Device Identifier Shelf Expiration Date Model / Serial / Lot [place] Suture Biocomposite - Sn/A - [id number] Implanted:Qty: 2 on 12/13/2021 by Moris Jimenez DO at OR [facility] Left: Leg Lower [employer] 07/18/2024 AR-2324BCC / N/A / [id number] Vitoss Bbtrauma Foam Pack - [id number] - [id number] Implanted:Qty: 1 on 12/13/2021 by Moris Jimenez DO at OR [facility] Left: Leg Lower MICHA : TRAUMA 01/15/2022 [id number] / [id number] / [id number] System Delivery Triclip Xtw - [id number] Implanted:Qty: 1 on 03/18/2024 at [facility] [employer] 08/11/2025 [id number] / / documented as of this [...] fibrillation (HCC) Generalized anxiety disorder Atherosclerosis of [place] coronary artery without angina pectoris, unspecified whether [place] or transplanted heart Hypothyroidism, postablative Other postablative [...] Advance Directives occurred with: Patient Care Teams Residential Gas Heat Technician Relationship Specialty Start Date End Date Shara Ray MD [address] [place] [address] [place] [address] PCP - General Family Medicine 12/30/23 documented as of this encounter
--- OUTSIDE RECORDS SUMMARY | 2024-06-10 06:40 | External Medical Summary | Summary of Care ---
Author Name Unknown Organization [facility] Address [address] [place] [place] [address] Phone [phone] Care Team Providers Care Thread Tool Grinder Set Up Operator Name Role Phone Shara Ray MD Primary Care Provide r Reason for Visit * Reason Comments Outpatient Testing Encounter Details Date Type Department Care Team (Late st Contact Info) Description 05/20/2024 12:20 PM EDT Laboratory Laboratory, [facility] 132 [facility] [place] [address] [facility] 132 [facility] [address] History of TIA (transient ischemic attack); S/P [...] as of this encounter (statuses as of 05/20/2024) Medications acetaminophen (TYLENOL) 500 MG Tablet Take [...] needed 50 mL 12/07/19 23 Active Nystatin 459057 UNIT/ML Mouth/Throat SuspensionIndicati ons:Thrush Swish and swallow [...] long-term current use of insulin ([facility]) Check your glucose daily as needed 1 Kit 07/25/19 Active LancetsIndications :Type 2 diabetes mellitus with stage 3b chronic kidney disease, without long-term current use of insulin ([facility]) Use as directed. 100 Each 11 07/25/19 Active Glucose Blood In Vitro StripIndications:T ype 2 diabetes mellitus with stage 3b chronic kidney disease, without long-term current use of insulin ([facility]) Use as directed. 100 Strip 07/25/19 Active [...] bedtime. 90 mL 3 05/20/19 25 Active documented as of this encounter (statuses as of 05/20/2024) Active Problems Problem Noted Date Diagnosed Date S/P tricuspid valve repair 04/09/2024 Hypothyroidism 04/09/2024 Hyperparathyroidism 04/09/2024 Moderate tricuspid regurgitation 03/23/2024 Esophageal dysmotility 03/23/2024 Chronic right-sided heart failure 03/20/2024 Atherosclerosis of [place] co ronary artery of [place] heart without angina pectoris 04/03/2023 Major depressive [...] leg, left, subsequent encounter 09/2021 Overview (12/05/2021): [facility] ER ulstrasound shows hematoma calf, INR 4.2, [...] Assessment & Plan (07/10/2021 12:27 PM EDT): [facility] Call: I would have her [...] office for worsening of condition. I will follow-up with patient in 1 month. Continue compression [...] and amiodarone. On warfarin being managed by [facility] pharmacy. History of TIA (transient [...] EST): Symptoms well controlled on omeprazole 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 0 [...] as of this encounter (statuses as of 05/20/2024) Resolved Problems Problem Noted Date Diagnosed Date [...] Chest Xray Additional Comments: Followed by manager acute - Dr. Rashel Sales [facility] Assessment & Plan (12/07/2022 2:00 PM EDT): [...] IM/IV CBC Chest Xray Followed by manager acute - Dr. Rashel Sales [facility] Complicated UTI (urinary tract infection) 12/20/2021 05/17/2022 [...] (07/12/2011): Per CKD protocol #1 ORBIT-AF Research Other*[id number] 06/02/2010 04/18/2011 Overview (06/02/2010): PROJECT: #[id number], SPONSOR: Aileen, PI: Adolfo De Jesus MD [...] can be closed. CONTACT: Roberto Carlos Huertas, Coffee Urn Attendant Type 2 diabetes mellitus wit h [...] as of this encounter (statuses as of 05/20/2024) Immunizations Name Administration Dates Next Due COVID-19 mRNA, LNP-s, No Pre serve, 2-Dose Series (Moderna) 04/19/2020,03/22/2020 COVID-19, MRNA-LNP, PF, 30 M CG/0.3 mL, 12 YRS AND ABOVE, IM ([facility]) 12/03/2022 COVID-19, mRNA, LNP-s, PF, B [...] 03/13/2024 3:44 PM Maury Thacker, RN * Because of a physical, mental, [...] Care Team (Late st Contact Info) Description 05/21/2024 6:00 AM EDT Anticoagulation Centralized Clinical Pharmacy Services, Denia Yee [address] [place] [address] [place] Rodríg[place] [address] Ccps, [address] [place] [address] 05/25/2024 10:40 AM EDT Office Visit Gastroenterology, [place] [address] [place] [address] Hakan Berg PA-C [address] [place] [address] 06/11/2024 5:00 PM EDT Home Visit [facility] at [facility] 132 [facility] [place] [address] Valentina Laws RN 132 [facility] [place] [address] 06/23/2024 2:00 PM EDT Office Visit Hematology/Oncology [facility] 200 [place] [address] Bouchra Del Cid CRNP 400 [facility] [place] [address] 06/24/2024 1:40 PM EDT Office Visit Family Medicine [address] [place] [phone] Shara Ray MD [address] [place] [address] [place] [address] 07/14/2024 3:00 PM EDT Cardiac Studies Cardiac Studies, [facility] [address] [place] [address] 07/15/2024 2:00 PM EDT Office Visit Cardiology, [facility] [address] [place] [address] Maria Ines Bowers CRNP [address] [place] [address] 08/20/2024 3:00 PM EDT Office Visit Nephrology [address] [place] [address] Aliyah Lacey MD [address] [place] [address] 12/09/2024 10:00 AM EDT Office Visit Cardiology, [facility] [address] [place] [address] Hadley Molina MD [address] [place] [address] 01/08/2025 2:00 PM EST Office Visit Family Medicine [address] [place] [address] Shara Ray MD [address] [place] [address] [place] [address] 03/01/2025 2:40 PM EST Office Visit Nephrology [address] [place] [address] Aliyah Lacey MD [address] [place] [address] 05/19/2025 2:00 PM EDT Office Visit Allergy/Immunology [place] [facility] 200 [facility] [place], [place] [address] Rae Ramirez PA-C 200 [place] [place] [address] Scheduled Procedures Name Priority Associated Diagnoses Date/Ti [...] Additional history exists CKD PHOS USE SMARTSET 22546 03/23/2025 020 04/2024, 03/22/2024, 03/21/2024, Additional history exists CKD HGB USE SMARTSET 33060 03/25/202503/25, 03/23/2024, 03/22/2024, Additional history exists Diabetic [...] this encounter Medical Devices Implanted Type Area Bell Spinner Device Identifier Shelf Expiration Date Model / Serial / Lot [place] Suture Biocomposite - Sn/A - [id number] Implanted:Qty: 2 on 12/13/2021 by Moris Jimenez DO at OR [facility] Left: Leg Lower [employer] 07/18/2024 AR-2324BCC / N/A / [id number] Vitoss Bbtrauma Foam Pack - [id number] - [id number] Implanted:Qty: 1 on 12/13/2021 by Moris Jimenez DO at OR [facility] Left: Leg Lower MICHA : TRAUMA 01/15/2022 / [id number] System Delivery Triclip Xtw - [id number] Implanted:Qty: 1 on 03/18/2024 at [facility] [employer] 08/11/2025 [id number] / / documented as of this encounter Procedures Procedure Name Priority Date/Time Associated Diagnosis Comments PT INR Routine 05/20/2024 12:07 PM EDT History of TIA (transient ischemic attack) S/P mitral valve replacement Permanent atrial fibrillation (HCC) Anticoagulation management encounter documented in this encounter Results * (ABNORMAL) PT INR (05/20/2024 12:07 PM EDT) Prothrombin Time 33.7(H) 11.6 - 15.2 seconds 05/20/2024 12:43 PM EDT LAB[facility]ATORY [facility] 57-10 INR 3.3(H) 0.8 - 1.2 05/20/2024 12:43 PM EDT [facility] Blood Venous blood specimen / Unknown Venipuncture / Unknown 05/20/2024 12:07 PM EDT 05/20/2024 12:07 PM EDT Narrative [facility] - 05/20/2024 12:43 PM EDT Warfarin Therapy INR: 2.0-3.0 conventional anticoagulation INR: 2.5-3.5 high intensity anticoagulation Kirby Gates [facility] LAB BLOOD ORDERABLES Kacy colvin Result LABORATORY [facility] 57-10 [address] [place] [address] documented in this encounter Visit Diagnoses Diagnosis Gastroesophageal reflux disease with esophagitis without hemorrhage- Primary Type 2 diabetes mellitus with stage 3b chronic kidney disease, without long-term current use of insulin ([facility]) Permanent atrial fibrillation (HCC) Atrial fibrillation Restless [...] B, by GOLD 2017 classification ([facility]) Major depressive disorder, recurrent, moderate (HCC) Major depressive disorder, recurrent episode, moderate Other persistent atrial fibrillation (HCC) Generalized anxiety disorder Atherosclerosis of [place] coronary artery without angina pectoris, unspecified whether [place] or transplanted heart Hypothyroidism, postablative Other postablative [...] Directives occurred with: Patient Care Teams Thread Tool Grinder Set Up Operator Relationship Specialty Start Date End Date Shara Ray MD [address] [place] [address] [place] [address] PCP - General Family Medicine 12/30/23 documented as of this encounter
--- OUTSIDE RECORDS SUMMARY | 2024-06-10 06:40 | External Medical Summary ---
Author Name Unknown Address Unknown Organization [facility] [address] [place] [id number] Laboratory Report Ordering Provider Test Date Status JOLENE CORDERO 05/20/2024 12:07:02 Final Observation Date Value Abnormality Reference (Units ) Status BUN 05/20/2024 12:07:02 27 Above high normal 6-20 (mg/dL) Final Creatinine 05/20/2024 12:07:02 1.9 Above high normal 0.5-1.0 (mg/dL) Final Glomerular filtration rate/1.73 sq M.predicted [Volume Rate/Area] in Serum, Plasma or Blood by Creatinine-based formula (CKD-EPI) 05/20/2024 12:07:02 28 Below low normal >=60 (mL/min) Final eGFR is calculated based on the CKD-EPI 2020 equation. Sodium 05/20/2024 12:07:02 135 135-146 (m mol/L) Final Potassium 05/20/2024 12:07:02 4.2 3.5-5.1 (m mol/L) Final Cl 05/20/2024 12:07:02 96 Below low normal 98- 107 (mmol/L) Final CO2 05/20/2024 12:07:02 29 22-32 (mmo l/L) Final Anion gap 05/20/2024 12:07:02 10 7-15 (mmol /L) Final Glucose 05/20/2024 12:07:02 126 Above high normal 70 -120 (mg/dL) Final Albumin 05/20/2024 12:07:02 4.0 3.8-5.0 (g /dL) Final AST (Aspartate aminotransferase) 05/20/2024 12:07:02 42 Above high normal 10-35 (U/L) Final Alk Phos 05/20/2024 12:07:02 175 Above high normal 35 -130 (U/L) Final Bilirubin, Total 05/20/2024 12:07:02 0.9 <=1 .2 (mg/dL) Final Calcium 05/20/2024 12:07:02 10.4 Above high normal 8. 4-10.2 (mg/dL) Final Protein 05/20/2024 12:07:02 7.6 6.0-8.3 (g /dL) Final ALT (Alanine aminotransferase) 05/20/2024 12:07:02 17 10-35 (U/L) Dallin marino Performing Location [facility] [place] [address] [facility] [address]
--- OUTSIDE RECORDS SUMMARY | 2024-06-10 06:40 | External Medical Summary ---
Author Name Unknown Address Unknown Organization [facility] [address] [place] [address] Laboratory Report Ordering Provider Test Date Status SONIA PANTOJA 05/20/2024 12:07:02 Final Standing order for pt/inr. < br/>Please draw pt/inr every 1 to 4 weeks as requested.
Results to [facility]

Warfarin Therapy
INR: 2.0-3.0 conventional anticoagulation
INR: 2.5-3.5 high intensity anticoagulation Observation Date Value Abnormality Reference (Units ) Status PT 05/20/2024 12:07:02 33.7 Above high normal 11 .6-15.2 (seconds) Final INR 05/20/2024 12:07:02 3.3 Above high normal 0. 8-1.2 Final Performing Location [facility] [address] [place] [address]
--- OUTSIDE RECORDS SUMMARY | 2024-06-10 06:40 | External Medical Summary | Summary of Care ---
Author Name Unknown Organization [facility] Address [address] [place] [address] Phone [phone] Care Team Providers Care Automation Operator Name Role Phone Shara Ray MD Primary Care Provide r Reason for Visit * Reason Comments Dosage Adjustment Via Phone (anticoag Cl inic) Encounter Details Date Type Department Care Team (Late st Contact Info) Description 05/21/2024 6:00 AM EDT Anticoagulation Centralized Clinical Pharmacy Services, [address] [place] [id number] [place] [address] residential current use of anticoagulant therapy*; History [...] as of this encounter (statuses as of 05/21/2024) Medications acetaminophen (TYLENOL) 500 MG Tablet Take [...] needed 50 mL 12/07/19 23 Active Nystatin 529638 UNIT/ML Mouth/Throat SuspensionIndicati ons:Thrush Swish and swallow [...] without long-term current use of insulin ([facility]) Check your glucose daily as needed 1 Kit 07/25/19 Active LancetsIndications :Type 2 diabetes mellitus with stage 3b chronic kidney disease, without long-term current use of insulin ([facility]) Use as directed. 100 Each 07/25/19 Active Glucose Blood In Vitro StripIndications:T ype 2 diabetes mellitus with stage 3b chronic kidney disease, without long-term current use of insulin ([facility]) Use as directed. 100 Strip 07/25/19 24 [...] as instructed by coumadin pharmacist/clin ic - 7.5mg on Mondays, 5mg on all other days. 180 Tablet 1 05/22/19 25 Active documented as of this encounter (statuses as of 05/21/2024) Active Problems Problem Noted Date Diagnosed Date S/P tricuspid valve repair 04/09/2024 Hypothyroidism 04/09/2024 Hyperparathyroidism 04/09/2024 Moderate tricuspid regurgitation 03/23/2024 Esophageal dysmotility 03/23/2024 Chronic right-sided heart failure 03/20/2024 Atherosclerosis of pamunkey co ronary artery of pamunkey heart without angina pectoris 04/03/2023 Major depressive [...] leg, left, subsequent encounter 09/2021 Overview (12/05/2021): [facility] ER ulstrasound shows hematoma calf, INR [...] Assessment & Plan (07/10/2021 12:27 PM EDT): [facility] Call: I would have her do [...] amiodarone. On warfarin being managed by [facility] pharmacy. History of TIA (transient [...] PM EST): Symptoms well controlled on omeprazole classifier current use of anticoagulant therapy 0 05/10/2004 [...] as of this encounter (statuses as of 05/21/2024) Resolved Problems Problem Noted Date Diagnosed Date [...] IM/IV Chest Xray Additional Comments: Followed by yardage caller - Dr. Rashel Sales [facility] Assessment & Plan (12/07/2022 2:00 PM [...] 40mg IM/IV CBC Chest Xray Followed by yardage caller - Dr. Rashel Sales [facility] Complicated UTI (urinary tract infection) 12/20/2021 05/17/2022 Mild protein-calorie malnutrition 12/05/2021 06/20/2023 Chronic obstructive pulmonary disease 08/21/2021 08/30/2022 Overview: Per COPD GOLD Classification Assessment & Plan (09/01/2021 3:32 PM EDT): No SOB. O2 stable on RA Continue Duonebs and Breo Chronic diastolic CHF (filipe romero heart failure) 07/18/2021 08/21/2021 Cough variant asthma [...] (07/12/2011): Per CKD protocol #1 [employer] Other*[id number] 06/02/2010 04/18/2011 Overview (06/02/2010): PROJECT: #[id number], SPONSOR: Aileen, PI: Adolfo De Jesus MD [...] can be closed. CONTACT: Roberto Carlos Huertas, Environmental Research Scientist Type 2 diabetes mellitus wit h hemoglobin [...] as of this encounter (statuses as of 05/21/2024) Immunizations Name Administration Dates Next Due COVID-19 mRNA, LNP-s, No Pre serve, 2-Dose Series (Moderna) 04/19/2020,03/22/2020 COVID-19, MRNA-LNP, PF, 30 M CG/0.3 mL, 12 YRS AND ABOVE, IM ([employer]) 12/03/2022 COVID-19, mRNA, LNP-s, PF, B [...] Progress Notes * Araceli Foster RPh - 05/21/2024 10:44 AM EDT Agree with plan as documented. MyG sent. Araceli Foster [facility] Clinical Pharmacist 05/21/2024, 10:44 AM * Cydney Buitraog, PHARM Student - 05/21/2024 8:40 AM EDT Medication Therapy Disease Management - Anticoagulation Patient: Abdi Tello Dash | : 1955 Subjective Contacts Contact Date/Time Type Contact Phone/Fax 05/21/2024 04:01 AM EDT Email SMS () [phone] Patient not accepting updates 05/21/2024 01:19 PM EDT Phone (Outgoing) Abdi Bowling (Self) [phone] (M) Spoke to Patient Patient-Reported Symptoms: Patient Findings Negatives: Signs/symptoms of bleeding, Change in health, Upcoming invasive procedure, Missed doses,Extra doses, Change in medications, Change in diet/appetite, Bruising Objective Current Warfarin Dose As of 05/21/2024 Warfarin maintenance plan: 7.5 mg (2.5 mg x 3) every Mon; 5 mg (2.5 mg x 2) all other days INR Result As of 05/21/2024 INR goal: 3.0-3.5 INR used for dosin.3 (05/20/2024) Assessment & Plan Warfarin Plan As of 05/21/2024 Full warfarin instructions: 5 mg every day Next INR check: 05/27/2024 Repeat PT/INR in 1 week(s) - please send MyG Weekly dose: decreased Additional Dosing Information: Description GML WedFri, prefers Wed ([facility], [facility], or [facility]) Please also send myG message Cydney Gregorio, PHARM Student Clinical Pharmacist 05/21/2024, 8:41 AM Cosigned by Araceli Foster RPh at 05/21/2024 1:42 PM EDT documented in this encounter Plan of Treatment Upcoming Encounters Date Type Department Care Team (Late st Contact Info) Description 05/25/2024 10:40 AM EDT Office Visit Gastroenterology, [place] [address] [place] [address] Hakan Berg PA-C [address] [place] [address] 05/27/2024 7:20 AM EDT Laboratory Lab Mobile Phlebotomy [address] [place] [address] [facility] Mobile Home Draw [address] [place] [address] [place] [address] 05/28/2024 6:00 AM EDT Anticoagulation Centralized Clinical Pharmacy Services, Denia Yee [address] [place] [address] [place] [address] [place] [address] 06/11/2024 5:00 PM EDT Home Visit [facility], [address] [place] [address] Valentina Laws RN [address] [place] [address] 06/23/2024 2:00 PM EDT Office Visit Hematology/Oncology [facility] [place] [address] [facility] [place] [phone] Bouchra Del Cid CRNP [address] [facility] [place] [address] 06/24/2024 1:40 PM EDT Office Visit Family Medicine [address] [place] [phone] Shara Ray MD [address] [place] [address] [place] [address] 07/14/2024 3:00 PM EDT Cardiac Studies Cardiac Studies, [facility] [address] [facility] [place] [phone] 07/15/2024 2:00 PM EDT Office Visit Cardiology, [facility] [address] [facility] [place] [phone] Maria Ines Bowers CRNP [address] [facility] [place] [address] 08/20/2024 3:00 PM EDT Office Visit Nephrology [address] [place] [address] Aliyah Lacey MD [address] [facility] [place] [address] 12/09/2024 10:00 AM EDT Office Visit Cardiology, [facility] [address] [place] [phone] Hadley Molina MD [address] [place] [address] 01/08/2025 2:00 PM EST Office Visit Family Medicine [address] [place] [phone] Shara Ray MD [address] [place] [address] [place] [address] 03/01/2025 2:40 PM EST Office Visit Nephrology [address] [place] [address] Aliyah Lacey MD [address] [place] [address] 05/19/2025 2:00 PM EDT Office Visit Allergy/Immunology [facility] [place] [address] [place] [address] Rae Ramirez PA-C [address] [place] [address] Scheduled Procedures Name Priority Associated Diagnoses Date/Ti [...] Additional history exists CKD PHOS USE SMARTSET 14894 03/23/2025 02/0 04/2024, 03/22/2024, 03/21/2024, Additional history exists CKD HGB USE SMARTSET 69575 03/25/202503/25, 03/23/2024, 03/22/2024, Additional history exists Diabetic [...] encounter Medical Devices Implanted Type Area Nurse Coordinator Device Identifier Shelf Expiration Date Model / Serial / Lot [place] [employer] - Sn/A - [id number] Implanted:Qty: 2 on 12/13/2021 by Moris Jimenez DO at OR [facility] Left: Leg Lower [employer] 07/18/2024 [id number] / N/A / [id number] [employer] Foam Pack - [id number] - [id number] Implanted:Qty: 1 on 12/13/2021 by Moris Jimenez DO at OR [facility] Left: Leg Lower MICHA : TRAUMA 01/15/2022 [id number] / [id number] / [id number] System Delivery [employer] Xtw - [id number] Implanted:Qty: 1 on 03/18/2024 at [facility] [employer] 08/11/2025 [id number] / / documented as of this encounter Visit Diagnoses Diagnosis Gastroesophageal reflux disease with esophagitis without hemorrhage- Primary Type 2 diabetes mellitus with stage 3b chronic kidney disease, without long-term current use of insulin ([facility]) Permanent atrial fibrillation ([facility]) Atrial fibrillation Restless legs syndrome Restless legs syndrome (RLS) S/P mitral valve replacement Heart valve replaced by other means Hypertensive heart and kidney disease with chronic diastolic congestive heart failure and stage 3b chronic kidney disease ([facility]) Recurrent falls Personal history of fall Hypertensive heart and kidney disease with chronic diastolic congestive heart failure and stage 3b chronic kidney disease ([facility])- Primary Intramuscular hematoma- Primary Contusion of unspecified site Permanent atrial fibrillation ([facility]) Atrial fibrillation Chronic obstructive pulmonary disease, unspecified COPD type ([facility]) Old myocardial infarct Old myocardial infarction Type 2 diabetes mellitus with stage 3b chronic kidney disease, without long-term current use of insulin ([facility]) Hypothyroidism, postablative Other postablative hypothyroidism Generalized anxiety disorder Permanent atrial fibrillation ([facility])- Primary Atrial fibrillation Type 2 diabetes mellitus with stage 3b chronic kidney disease, without long-term current use of insulin ([facility]) Hypertensive heart and kidney disease with chronic diastolic congestive heart failure and stage 3b chronic kidney disease ([facility]) COPD, group B, by GOLD 2017 classification ([facility]) Gastroesophageal reflux disease with esophagitis without hemorrhage [...] fibrillation (HCC) Generalized anxiety disorder Atherosclerosis of pamunkey coronary artery without angina pectoris, unspecified whether pamunkey or transplanted heart Hypothyroidism, postablative Other postablative hypothyroidism Dyslipidemia, goal LDL below 100 Other and unspecified hyperlipidemia classifier current use of anticoagulant therapy- Primary History [...] Advance Directives occurred with: Patient Care Teams Automation Operator Relationship Specialty Start Date End Date Shara Ray MD [address] [place] [address] [place] [address] PCP - General Family Medicine 12/30/23 documented as of this encounter
--- OUTSIDE RECORDS SUMMARY | 2024-06-10 06:40 | External Medical Summary | Summary of Care ---
Author Name Unknown Organization [facility] Address [address] [facility] [address] Phone [phone] Care Team Providers Care Yarn Washer Name Role Phone Shara Ray MD Primary Care Provide r Reason for Visit * Reason Onset Date Comments Hospital Follow-Up Hospital Follow-Up 05/20/2024 Encounter Details Date Type Department Care Team (Late st Contact Info) Description 05/20/2024 11:20 AM EDT Office Visit Family Medicine [address] [place] [phone] Shara Ray MD [address] [place] [address] [place] [phone] Hospital discharge follow-up*; Type 2 diabetes mellitus with stage 3b chronic kidney disease, without long-term current use of insulin (HCC); Esophageal dysmotility Allergies Active Allergy Reactions Criticality [...] needed 50 mL 12/07/19 23 Active Nystatin 864973 UNIT/ML Mouth/Throat SuspensionIndicati ons:Thrush Swish and swallow [...] disease, without long-term current use of insulin ([facility]) Use as directed. 100 Strip [...] bedtime. 90 mL 3 05/20/19 25 Active guaiFENesin-Codein e 100-10 MG/5ML Oral Solution (Robitussin AC)Indications:Bro nchitis, complicated Take 5 mL by mouth 3 times a day as needed for Cough. 120 mL 05/15/19 25 025 Discontin ued(Medic ation List Clean [...] left, subsequent encounter 09/2021 Overview (12/05/2021): [facility] ER ulstrasound shows hematoma [...] & Plan (07/10/2021 12:27 PM EDT): [facility] Call: I would have her [...] and amiodarone. On warfarin being managed by [facility] pharmacy. History of TIA (transient ischemic [...] PM EST): Symptoms well controlled on omeprazole pants closer current use of anticoagulant therapy 0 05/10/2004 [...] IM/IV Chest Xray Additional Comments: Followed by printer slotter helper - Dr. Rashel Sales [facility] Assessment & Plan (12/07/2022 2:00 PM [...] 40mg IM/IV CBC Chest Xray Followed by printer slotter helper - Dr. Rashel Sales [facility] Complicated UTI (urinary tract infection) 12/20/2021 [...] (07/12/2011): Per CKD protocol #1 [employer] Other*[id number] 06/02/2010 04/18/2011 Overview (06/02/2010): PROJECT: #[id number], SPONSOR: Aileen, PI: Adolfo De Jesus MD [...] can be closed. CONTACT: Roberto Carlos Huertas, Home Office Representative Type 2 diabetes mellitus wit h [...] CG/0.3 mL, 12 YRS AND ABOVE, IM (Swapdom-Comirnaty) 12/03/2022 COVID-19, mRNA, LNP-s, PF, B ooster, [...] Sign Reading Time Taken Comments Blood Pressure 113/68 05/20/2024 10:59 AM EDT Pulse 62 05/20/2024 10:59 AM EDT Temperature 36.3 °C (97.3 °F) 05/20/2024 10:59 AM E DT Respiratory Rate - - Oxygen Saturation 100% 05/20/2024 10:59 AM EDT Inhaled Oxygen Concentration - - Weight 61.9 kg (136 lb 6.4 oz) 05/20/2024 10:59 AM EDT Height - - Body Mass Index 26.64 03/26/2024 1:44 PM EST documented in this [...] Maury Thacker RN documented in this encounter Patient Instructions * Patient Instructions* Omayra Rosales CMA - 05/20/2024 11:02 AM EDT Diabetes: Keeping Feet Healthy Inspect your feet every day for signs of a problem. Diabetes can damage nerves in your feet and cause neuropathy. This condition makes it hard for you to feel injuries or sore spots. Diabetes can also change blood flow, making it harder for small problems, like a blister, to heal properly. In fact, minor injuries can quickly become serious infections that send you to the hospital. Practice self-care to protect your feet and keep them healthy. Take Special Care Inspect your feet daily for problems such as redness, blisters, cracks, dry skin, or numbness. Use a mirror to see the bottoms of your feet. Or, ask for help. Manage your diabetes. Monitor and control your blood sugar. Take all your medications as prescribed. Avoid walking barefoot, even indoors. Wash your feet with warm water and mild soap. Dry well, especially between toes. Don’t treat corns or calluses yourself. Talk to your doctor or furnace maintenance (a doctor who specializes in foot care) if you need assistance trimming your toenails. Use moisturizing cream or lotion if you have dry skin, but don’t use it between toes. Don’t use heating pads on your feet. If you have neuropathy, you could get a burn and not feel it. Stop smoking. Smoking restricts blood flow and can make it harder for wounds to heal. Have Regular Checkups Foot problems can develop quickly. So be sure to follow your healthcare team’s schedule for regular checkups. During office visits, take off your shoes and socks as soon as you get in the exam room. Ask your healthcare provider to examine your feet for problems. This will make it easier to find and treat small skin irritations before they get worse. Regular checkups can also help keep track of the blood flow and feeling in your feet. If you have neuropathy, you may need to have checkups more often. Wear Proper Footwear Wearing proper footwear is very important. If areas of your feet have been damaged by too much pressure, your healthcare provider may recommend changing your footwear. In some cases, avoiding high heels or tight work boots may be all that’s needed. Or, your healthcare provider may recommend special shoes or custom inserts. These help protect your feet and keep existing irritations from getting worse. If you need special footwear, ask your healthcare provider if you qualify for Medicare’s diabetic shoe program. Make Sure Shoes and Socks Fit Any pair of shoes--new or old--should feel comfortable as soon as you put them on. There shouldn’t be any rubbing when you walk. Wear the right shoe for any activity. For instance, a running shoe is designed to keep your feet injury-free while jogging. Buy shoes at the end of the day, when your feet are larger. Make sure they provide support without feeling too loose. Make sure your socks fit, t oo. Wear soft, seamless, well-padded socks for activity. Cotton or microfiber socks are best to help to absorb sweat. To protect your feet, avoid shoes that are open-toed or open-heeled. If you have questions about what kinds of shoes and socks are best, talk to your healthcare team. Get Regular Exercise Regular exercise improves blood flow in your feet. It also increases foot strength and flexibility.Gentle exercises, like walking or riding a stationary bicycle, are best. You can also do special foot exercises. Just be sure to talk with your healthcare provider before starting any exercise program. Also mention if any exercise causes pain, redness, or other signs of foot problems. Note: If you have any kind of break in the skin of your foot or ankle, keep the area clean. Then call your doctor--especially if the area doesn’t appear to be healing. © 1572-4492 [employer], [address] [place] [address]. All rights reserved. This information is not intended as a substitute for professional medical care. Always follow your healthcare professional's instructions. documented in this encounter Progress Notes * Shara Ray MD - 05/20/2024 11:13 AM EDT Subjective: HPI: Abdi Bowling is a 68 year old female with hx of DMII, CKD III, MVR, Afib on coumadin, tachy sammi syndrome, TIA, PR, HLD, HFpEF, Chronic anemia, HLD, Restrictive lung disease, Nocturnal hypoxia (2L), chronic pain(b/l knee replacement), Depression, Hypothyroidism, RLS, severe tricuspid regurgitation s/p TriClip procedure seen for Pt was admitted to the hospital from 05/12-05/13 Chest pain and neck pain - trop trended down - neck pain attributed to esophageal dysmotility - no med was changed Today: - overall doing well - sched to see GI --- per pt she has intermittent dysphagia - denied any N/V or speech difficulty - denied any neck pain - denied any CP Patient Active Problem List Diagnosis Rheumatic heart disease nursing home current use of anticoagulant therapy S/P mitral valve replacement Gastroesophageal reflux disease with esophagitis without hemorrhage Generalized osteoarthritis Hypothyroidism, postablative Atherosclerosis of quileute coronary artery of quileute heart without angina pectoris Dyslipidemia, goal LDL [...] ulcers as needed 50 mL 0 Nystatin [id number] UNIT/ML Mouth/Throat Suspension Swish and swallow 5 [...] 1 Capsule by mouth every other day. Albuterol Sulfate HFA 108 (90 Base) MCG/ACT [...] and 2Sprays before bedtime. 90 mL 3 Nebulizer/Tubing/Mouthpiece Kit Use as directed 1 Kit 1 Blood Glucose Monitor System w/Device Kit Check your glucose daily as needed 1 Kit 0 Lancets Use as directed. 100 Each 11 Glucose Blood In Vitro Strip Use as directed. 100 Strip 11 No current facility-administered medications for this visit. Past Medical History: Diagnosis Date Acute on chronic diastolic CHF (congestive heart failure) ([facility]) 07/18/2021 [facility] Anticoagulation management encounter 08/06/2001 INR 3-3.5 Anxiety attack 06/23/2021 Evaluated [facility] ER Atrial fibrillation (HCC) Bronchitis 02/18/2022 got sick on 9 days En cruise Coronary atherosclerosis of quileute coronary artery Cough variant asthma 01/16/2021 COVID-19 10/14/2020 Cystitis 12/12/2021 [place] Klebsiella and E coli Diverticulosis of colon (without mention of hemorrhage) 07/16/2013 sigmoid & descending colon DM type 2, goal A1c below 7 diet controlled Dyslipidemia, goal LDL below 70 09/24/2013 Encounter for hepatitis C screening test for low risk patient 03/28/2021 negative Esophageal reflux 12/03/2008 min gastric inflammation and mod active chronic esophageal inflammation-repeat EGD in 2 yrs Facial paresthesia 05/21/2018 [facility] possibly stress Fracture of left tibial tuberosity 12/07/2021 [place] knee replaced GENERAL OSTEOARTHROSIS 01/31/2010 Generalized anxiety disorder 06/26/2021 citalopram started Hemarthrosis involving knee joint Hematoma of left lower leg 11/25/2021 [facility] ER ulstrasound shows hematoma calf, INR 4.2, hgb 9.9 Hyperlipidemia LDL goal < 100 12/23/2013 Hypertensive heart and kidney disease with chronic diastolic congestive heart failure and stage 3b chronic kidney disease (HCC) 04/26/2021 Hypothyroidism, postablative 09/24/2013 Intramuscular hematoma 08/02/2021 left leg, [facility] Kidney disease, chronic, stage III (GFR 30-59 ml/min) ([facility]) 07/09/2011 Per CKD protocol #1 LONG-TERM USE OF ANTICOAGULANTS 05/10/2004 MEDICATION USE AGREEMENT 08/29/2017 Migraine with aura, intractable Old myocardial infarct 01/02/2001 Other abnormal glucose 03/13/2005 Postural dizziness with presyncope 12/05/2017 [facility] also burned her arm. GFR 17 Protein calorie malnutrition (HCC) Restless legs syndrome 12/06/2016 RHEUMATIC HEART DISEASE 03/05/2002 Right knee DJD S/P mitral valve replacement 1993 mechanical Shingles 02/13/2014 left thigh Syncope 01/13/2021 [facility] VICKY and dehydration Tachy-sammi syndrome (HCC) 02/14/2018 Tendonitis, Achilles, left 02/18/2022 walked a lot on a cruise TIA (transient ischemic attack) 12/23/2013 embolic Past Surgical History: Procedure Laterality Date ARTHROPLASTY KNEE TOTAL Left 09/23/2018 [facility] had post op hemarthrosis required transfusions Dr Cormier ARTHROPLASTY KNEE TOTAL Right 01/13/2019 [facility] CATHETERIZE LEFT HEART THRU SKIN [address] ANGIOGRAPHY HEAD W/CONTRAST/NONCONTRAST N/A 01/13/2021 arteries patent COLONOSCOPY N/A 02/24/2020 internal nemorrhoids, sigmoid diverticulosis, repeat 10 years COLONOSCOPY, DIAGNOSTIC (RECTUM) 07/16/2013 diverticulosis, poor prep, repeat 3 yrs/COLONOSCOPY FLEXIBLE PROXIMAL DIAGNOSTIC performed by Louie Childress MD at ENDOSCOPY [facility] COLONOSCOPY, DIAGNOSTIC (RECTUM) 02/24/2020 diverticulosis, repeat 10 yrs / COLONOSCOPY FLEXIBLE PROXIMAL DIAGNOSTIC performed by Louie Childress MD at ENDOSCOPY [facility] CT HEAD/BRAIN WO CONTRAST N/A 01/13/2021 no intracranial abnormalities, parietal scalp effusion from fall DISTAL TIBIA FX W/FIXATION OF TIBIA, OPEN Left 12/13/2021 OPEN TREATMENT OF PILON FRACTURE TIBIA ONLY performed by Moris Jimenez DO at OR [facility] DISTAL TIBIA FX W/FIXATION OF TIBIA, OPEN Left 12/11/2021 OPEN TREATMENT OF PILON FRACTURE TIBIA ONLY performed by Moris Jimenez DO at OR [facility] EEG 05/20/2018 normal EGD, FLEXIBLE, DIAGNOSTIC N/A 02/24/2020 hiatal hernia, normal esophagus and duodenum, inflammation gastric antrum EGD, FLEXIBLE, DIAGNOSTIC 02/24/2020 gastritis, hiatal hernia / ESOPHAGOGASTRODUODENOSCOPY (EGD), FLEXIBLE, TRANSORAL, DIAGNOSTIC performed by Louie Childress MD at ENDOSCOPY [facility] EGD, FLEXIBLE, DIAGNOSTIC 07/24/2021 normal / INPT [facility] EGD, FLEXIBLE, INSERT WIRE, PASS DILATOR [...] by Silverio Arevalo MD at [facility] REMOVAL OF APPENDIX 1965 REMOVE GALLBLADDER 1987 [...] Vaping/E-Cigarette Devices ROS: -Per HPI OBJECTIVE: BP 113/68 | Pulse 62 | Temp 97.3 °F (36.3 °C) | Wt 136 lb 6.4 oz (61.9 kg) | SpO2 100% | BMI 26.64 kg/m² | BSA 1.62 m² PHYSICAL EXAM: Vitals are reviewed General:. NAD, well developed HEENT:. Normal Conjunctiva, EOMI Cardiac:. In afib Lungs:. CTA, no wheezing or crackles Abd:. soft, ND, NT MSK:. Normal gait Psych:. AAOx3, normal affect ASSESSMENT/PLAN: Pt is doing well Currently asymptomatic Already on PPI Sched to see GI -- carly need EGD Hospital discharge follow-up (Primary) - DISCH MED RECON CUR MED LIS Type 2 diabetes mellitus with stage 3b chronic kidney disease, without long-term current use of insulin ([facility]) - DIABETES FOOT EXAM Esophageal dysmotility I spent a total of 40-54 minutes (exact time 41 mins) on the date of service in preparation, delivery, and documentation of the care provided to Abdi Bowling excluding any time spent in the performance of separately billed services or time spent by another provider/QHP. Shara Ray MD Family medicine, [place] [id number] * Omayra Rosales, [facility] - 05/20/2024 11:02 AM EDT Socks and Shoes Removed for Annual Diabetic Foot Screening RIGHT FOOT: No Reddened, Cracking, Or Open Areas Noted. RIGHT Dorsalis Pedis Pulse: Palpable RIGHT Posterior Tibial Pulse: Palpable RIGHT Monofilament:Patient reports feeling monofilament pressure on plantar surface of foot LEFT FOOT: No Reddened, Cracking or Open Areas Noted. LEFT Dorsalis Pedis Pulse: Palpable LEFT Posterior Tibial Pulse: Palpable LEFT Monofilament:Patient reports feeling monofilament pressure on plantar surface of foot Do you need diabetic shoes: No DM Foot Exam completed today. Provider aware. Omayra Rosales CMA documented in this encounter Nursing Notes * Omayra Rosales CMA - 05/20/2024 10:54 AM EDT She is here for follow up from hospital discharge on 05/13/2024. documented in this encounter Plan of Treatment Upcoming Encounters Date Type Department Care Team (Late st Contact Info) Description 05/21/2024 6:00 AM EDT [facility] Clinical Pharmacy Services, [address] [place] [address] [place] [address] 05/25/2024 10:40 AM EDT Office Visit Gastroenterology, [place] [address] [place] [address] Hakan Berg PA-C [address] [place] [address] 06/11/2024 5:00 PM EDT Home Visit [facility], [address] [place] [phone] Valentina Laws, TANISHA [address] [place] [address] 06/23/2024 2:00 PM EDT Office Visit Hematology/Oncology Gertrude Lacy [place] [address] [facility] [place] [phone] Bouchra Del Cid CRNP [address] [facility] [place] [address] 06/24/2024 1:40 PM EDT Office Visit Family Medicine [address] [place] [phone] Shara Ray MD [address] [place] [address] [place] [address] 07/14/2024 3:00 PM EDT Cardiac Studies Cardiac Studies, [facility] [address] [place] [phone] 07/15/2024 2:00 PM EDT Office Visit Cardiology, [facility] [address] [place] [phone] Maria Ines Bowers CRNP [address] [place] [address] 08/20/2024 3:00 PM EDT Office Visit Nephrology [address] [place] [address] Aliyah Lacey MD [address] [facility] [place] [address] 12/09/2024 10:00 AM EDT [facility] [address] [place] [phone] Hadley Molina MD [address] [place] [address] 01/08/2025 2:00 PM EST Office Visit Family Medicine [address] [place] [phone] Shara Ray MD [address] [place] [address] [place] [address] 03/01/2025 2:40 PM EST Office Visit Nephrology [address] [place] [address] Aliyah Lacey MD [address] [place] [address] 05/19/2025 2:00 PM EDT Office Visit Allergy/Immunology [facility] [address] [place] [address] Rae Ramirez PA-C [address] [place] [address] Scheduled Procedures Name Priority Associated Diagnoses Date/Ti [...] Additional history exists CKD PHOS USE SMARTSET 14700 03/23/2025 02/0 04/2024, 03/22/2024, 03/21/2024, Additional history exists CKD HGB USE SMARTSET 56858 03/25/202503/25, 03/23/2024, 03/22/2024, Additional history exists Diabetic [...] this encounter Medical Devices Implanted Type Area Mail Processing Equipment Mechanic Device Identifier Shelf Expiration Date Model / Serial / Lot [place] [employer] - Sn/A - [id number] Implanted:Qty: 2 on 12/13/2021 by Moris Jimenez DO at OR [facility] Left: Leg Lower [employer] 07/18/2024 [id number] / N/A / [id number] [employer] Bbtrauma Foam Pack - [id number] - [id number] Implanted:Qty: 1 on 12/13/2021 by Moris Jimenez, DO at OR [facility] Left: Leg Lower MICHA : TRAUMA 01/15/20228527-9748 / [id number] / [id number] System Delivery [employer] Xtw - [id number] Implanted:Qty: 1 on 03/18/2024 at [facility] [employer] 08/11/2025 [id number] / / documented as of this encounter Visit Diagnoses Diagnosis Gastroesophageal reflux disease with esophagitis without hemorrhage- Primary Type 2 diabetes mellitus with stage 3b chronic kidney disease, without long-term current use of insulin ([facility]) Permanent atrial fibrillation ([facility]) Atrial fibrillation Restless legs syndrome [...] Contusion of unspecified site Permanent atrial fibrillation ([facility]) Atrial fibrillation Chronic obstructive pulmonary disease, unspecified COPD type ([facility]) Old myocardial infarct Old myocardial infarction Type 2 diabetes mellitus with stage 3b chronic kidney disease, without long-term current use of insulin ([facility]) Hypothyroidism, postablative Other postablative hypothyroidism Generalized anxiety disorder Permanent atrial fibrillation (HCC)- Primary Atrial fibrillation Type 2 diabetes mellitus with stage 3b chronic kidney disease, without long-term current use of insulin ([facility]) Hypertensive heart and kidney disease [...] fibrillation (HCC) Generalized anxiety disorder Atherosclerosis of quileute coronary artery without angina pectoris, unspecified whether quileute or transplanted heart Hypothyroidism, postablative Other postablative hypothyroidism Dyslipidemia, goal LDL below 100 Other and unspecified hyperlipidemia Hospital discharge follow-up- Primary Other follow-up examination Type 2 diabetes mellitus with stage 3b chronic kidney disease, without long-term current use of insulin (HCC) Esophageal dysmotility Dyskinesia of esophagus documented in [...] Advance Directives occurred with: Patient Care Teams Yarn Washer Relationship Specialty Start Date End Date Shara Ray MD [address] [place] [address] [place] [phone] PCP - General Family Medicine 12/30/23 documented as of this encounter
--- OUTSIDE RECORDS SUMMARY | 2024-06-10 06:40 | External Medical Summary | Summary of Care ---
Author Name Unknown Organization [facility] Address [address] [place] [address] Phone [phone] Care Team Providers Care Fence Laborer Name Role Phone Shara Ray MD Primary Care Provide r Reason for Visit * Reason Onset Date Comments Medication Question 05/21/2024 Encounter Details Date Type Department Care Team (Late st Contact Info) Description 05/21/2024 Telephone [facility] [address], [place] [phone] Helen Andujar DO [address] [place] [address] Medication Question Allergies Active Allergy Reactions Criticality Noted Date [...] needed 50 mL 12/07/19 23 Active Nystatin [id number] UNIT/ML Mouth/Throat SuspensionIndicati ons:Thrush Swish and swallow [...] disease, without long-term current use of insulin ([facility]) Use as directed. 100 Strip 11 [...] days. 180 Tablet 1 05/22/19 25 Active Warfarin Sodium 2.5 MG Oral Tablet (Coumadin) Take as instructed by coumadin pharmacist/clin ic 180 Tablet 1 03/23/19 25 025 Discontin ued(Refil l) Warfarin Sodium 2.5 MG Oral Tablet (Coumadin) Take as instructed by coumadin pharmacist/clin ic - 7.5mg on Mondays, 5mg on all other days. 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 Rashel Sales [facility] Assessment & Plan (12/07/2022 [...] 40mg IM/IV CBC Chest Xray Followed by color room attendant - Dr. Rashel Sales [facility] Complicated UTI (urinary tract [...] (07/12/2011): Per CKD protocol #1 [employer] Other*[id number] 06/02/2010 04/18/2011 Overview (06/02/2010): PROJECT: #[id number], SPONSOR: Aileen, PI: Adolfo De Jesus MD [...] can be closed. CONTACT: Roberto Carlos Huertas, Lift Team Technician Type 2 diabetes mellitus wit h [...] CG/0.3 mL, 12 YRS AND ABOVE, IM ([employer]) 12/03/2022 COVID-19, mRNA, LNP-s, PF, B [...] encounter Miscellaneous Notes * Telephone Encounter - Reva Wallace RP - 05/21/2024 12:56 PM EDT Per 05/15 anticoag appt: Full warfarin instructions: 05/16: 7.5 mg; 05/18: 5 mg; Otherwise 7.5 mg every Mon; 5 mg all other days Adjusted directions. Re-sent script. Thanks, Reva Wallace [facility] Clinical Pharmacist [facility] [phone] * Telephone Encounter - Karena Samano CPhT - 05/21/2024 12:52 PM EDT Please verify instructions or max tabs daily Pharmacy is calling because pt's prescription for warfarin 2.5 was sent with unclear directions stating "Take as instructed by coumadin pharmacist/clinic". Please clarify the directions for this medication and send a new prescription to [facility] . Thank you, Karena Samano CphT Consultant Education III [facility] 05/21/24 documented in this encounter Plan of Treatment Upcoming Encounters Date Type Department Care Team (Late st Contact Info) Description 05/25/2024 10:40 AM EDT [facility] [address] [facility] [place] [address] Hakan Berg PA-C [address] [facility] [address] 05/27/2024 7:20 AM EDT Laboratory Lab Mobile Phlebotomy [address] [place] [address] [facility] Draw [address] [place] [address] [place] [address] 05/28/2024 6:00 AM EDT Anticoagulation [facility], Denia Yee [address] [place] [address] [place] [phone] [facility], [address] [place] [address] 06/11/2024 5:00 PM EDT Home Visit [facility], [facility] [address] [facility] [place] [address] Valentina Laws, TANISHA [address] [facility] [place] [address] 06/23/2024 2:00 PM EDT Office Visit Hematology/Oncology [employer] [address] [facility] [place] [phone] Bouchra Del Cid CRNP [address] [place] [address] 06/24/2024 1:40 PM EDT Office Visit Family Medicine [address] [place] [phone] Shara Ray MD [address] [place] [address] [place] [address] 07/14/2024 3:00 PM EDT Cardiac Studies Cardiac Studies, [facility] [address] [place] [phone] 07/15/2024 2:00 PM EDT Office Visit Cardiology, [facility] [address] [place] [address] Maria Ines Bowers CRNP [address] [place] [address] 08/20/2024 3:00 PM EDT Office Visit Nephrology [address] [place] [address] Aliyah Lacey MD [address] [place] [address] 12/09/2024 10:00 AM EDT Office Visit Cardiology, [facility] [address] [place] [address] Hadley Molina MD [address] [place] [address] 01/08/2025 2:00 PM EST Office Visit Family Medicine [address] [place] [address] Shara Ray MD [address] [place] [address] [place] [address] 03/01/2025 2:40 PM EST Office Visit Nephrology [address] [place] [address] Aliyah Lacey MD [address] [place] [address] 05/19/2025 2:00 PM EDT Office Visit Allergy/Immunology [facility] [place] [address] [place] [address] Rae Ramirez PA-C [address] [place], [place] [address] Scheduled Procedures Name Priority Associated Diagnoses Date/Ti [...] Additional history exists CKD PHOS USE SMARTSET 82819 03/23/20250 04/2024, 03/22/2024, 03/21/2024, Additional history exists CKD HGB USE SMARTSET 60106 03/25/202503/25, 03/23/2024, 03/22/2024, Additional history exists Diabetic [...] this encounter Medical Devices Implanted Type Area Tool 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 Die Assembler Device Identifier Shelf Expiration Date Model / Serial / Lot [place] [employer] - Sn/A - [id number] Implanted:Qty: 2 on 12/13/2021 by Moris Jimenez, at OR [facility] Left: Leg Lower [employer] 07/18/2024 [id number] / N/A / [id number] [employer] Bbtra[employer] Foam Pack - [id number] - [id number] Implanted:Qty: 1 on 12/13/2021 by Moris Jimenez DO at OR [facility] Left: Leg Lower MICHA : TRAUMA 01/15/[id number] / [id number] / [id number] System Delivery [employer] Xtw - [id number] Implanted:Qty: 1 on 03/18/2024 at [facility] [employer] 08/11/2025 [id number] / / documented as of this [...] Advance Directives occurred with: Patient Care Teams Fence Laborer Relationship Specialty Start Date End Date Shara Ray MD [address] [place] [address] [place] [address] PCP - General Family Medicine 12/30/23 documented as of this encounter
--- OUTSIDE RECORDS SUMMARY | 2024-06-10 06:40 | External Medical Summary | Summary of Care ---
Author Name Unknown Organization [facility] Address [address] [facility] [place] [address] Phone [phone] Care Team Providers Care Chief Chemist Name Role Phone Mercedes Gorman MD Primary Care Provide r Reason for Visit * Reason Comments Chronic Kidney Disease (CKD) Encounter Details Date Type Department Care Team (Late st Contact Info) Description 04/22/2024 2:40 PM EST Office Visit Nephrology [address] [place] [address] Aurea Crespo MD [address] [place] [address] [place] [address] CKD (chronic kidney disease) stage 4, GFR 15-29 ml/min ([facility])*; Chronic heart failure with preserved ejection fraction (HCC); Hypokalemia; Acute on chronic right-sided heart failure (HCC) [...] Constipation. Active Magnesium Glycinate 665 MG Oral CapsuleIndication s:Restless legs syndrome One daily 100 Capsule 1 022 Active Lidocaine HCl 4 % External Solution Apply topically to affected area once for 1 dose. Apply to mouth ulcers as needed 50 mL 023 Active Nystatin 121979 UNIT/ML Mouth/Throat SuspensionIndicat ions:Thrush Swish and swallow 5 mL in the morning and 5 mL at noon and 5 mL in the evening and 5 mL before bedtime. For thrush.. 240 mL 1 023 Active traMADol HCl 50 MG Oral Tablet (Ultram)Indicatio ns:Generalized osteoarthritis,Po st-traumatic osteoarthritis of right knee,Closed nondisplaced fracture of left tibial tuberosity with routine healing Take 1 Tablet by mouth 2 times a day as needed for Pain, Severe. 60 Tablet 03/11/19 24 7:46 AM EST 024 Active Additional Information Patient taking differently:50 mg OralQID PRN, Pain, Severe, Reported on 05/19/2024 Buprenorphine 5 MCG/HR Transdermal Patch Weekly (Butrans) Apply 1 patch to skin once a week as directed 024 Active Nebulizer/Tubing/ Mouthpiece Kit Use as directed 1 Kit 1 024 Active oxygen IN GAS Use 2 L/min(Oxygen) as directed at bedtime. Ordered by pulmonary in Mar 2023. Also takes as needed during day Active valACYclovir HCl 1 GM Oral Tablet (Valtrex)Indicati ons:Cold sore Take 2 Tablets by mouth in the morning and 2 Tablets before bedtime. for cold sores. 4 Tablet 11 024 Active D3-1000 25 MCG (1000 UT) Oral Capsule (Cholecalciferol) Take 1 Capsule by mouth every other day. Active Blood Glucose Monitor System w/Device KitIndications:Ty pe 2 diabetes mellitus with stage 3b chronic kidney disease, without long-term current use of insulin (HCC) Check your glucose daily as needed 1 Kit Active LancetsIndication s:Type 2 diabetes mellitus with stage 3b chronic kidney disease, without long-term current use of insulin (HCC) Use as directed. 100 Each 11 Active Glucose Blood In Vitro StripIndications: Type 2 diabetes mellitus with stage 3b chronic kidney disease, without long-term current use of insulin (HCC) Use as directed. 100 Strip 11 Active Albuterol Sulfate HFA 108 (90 Base) MCG/ACT Inhalation Aerosol Solution INHALE TWO PUFFS BY MOUTH EVERY MORNING, TWO PUFFS EVERY EVENING AND 2 puffs EVERY 4 HOURS NEEDED FOR WORSENING COUGH, CHEST TIGHTNESS, FOR WHEEZING OR FOR SHORTNESS OF BREATH 54 g 2 04/22/19 25 6:10 PM EST 024 2024 Active Omeprazole 20 MG Oral Capsule Delayed Release (PriLOSEC)Indicat ions:Encounter for long-term (current) use of medications,Gastr oesophageal reflux disease with esophagitis Take 1 Capsule by mouth in the morning. 100 Capsule 3 02/18/20 24 12:56 PM EST 024 Active Additional Information Patient taking differently:20 mg OralQ-1999, Reported on 05/19/2024 rOPINIRole HCl 2 MG Oral Tablet (Requip)Indicatio ns:Restless legs syndrome Take 1 Tablet by mouth in the morning and 1 Tablet at noon and 1 Tablet before bedtime. 300 Tablet 3 05/08/19 25 2:51 PM EDT 024 Active Additional Information Patient taking differently:2 mg OralHS, Reported on 05/19/2024 Combivent Respimat 20-100 MCG/ACT Inhalation Aerosol Solution (Ipratropium-Albu terol) inhale 1 puff by mouth four times daily As Needed for Shortness Of Breath 12 g 2 05/03/19 25 8:57 AM EDT 024 Active Metoclopramide HCl 10 MG Oral Tablet (Reglan)Indicatio ns:Nausea TAKE ONE TABLET BY MOUTH EVERY MORNING 30 MINUTES BEFORE A MEAL 100 Tablet 1 02/23/19 25 6:15 AM EST 024 2024 Active Rosuvastatin Calcium 10 MG Oral Tablet (Crestor) Take 1 Tablet by mouth in the morning. 100 Tablet 1 02/24/19 25 5:12 PM EST Active Folic Acid 1 MG Oral TabletIndications :Mild protein-calorie malnutrition (HCC) TAKE ONE TABLET BY MOUTH EVERY MORNING 100 Tablet 1 04/21/19 25 3:59 PM EST 024 2024 Active Nitroglycerin 0.4 MG Sublingual Tablet Sublingual (Nitrostat)Indica tions:Old myocardial infarct,Atrial fibrillation (HCC),HTN, goal to be determined PLACE 1 TABLET UNDER THE TONGUE EVERY 5 MINUTES UP TO 3 DOSES NEEDED FOR CHEST PAIN. IF NO RELIEF CALL 911 OR GO TO ER 75 Tablet 02/17/20 24 12:34 PM EST Active Warfarin Sodium 2.5 MG Oral Tablet (Coumadin) Take as instructed by coumadin pharmacist/cli odin 180 Tablet 1 Active Torsemide 100 MG Oral Tablet (Demadex) Take 1 Tablet by mouth in the morning. 90 Tablet 3 04/08/19 6:43 PM EST Active Additional Information Patient taking differently:100 mg Oral Daily(AM),100 mg in the AM & 50 mg in the afternoon, Reported on 05/19/2024 Citalopram Hydrobromide 10 MG Oral Tablet (CeleXA)Indicatio ns:BOBBY (generalized anxiety disorder) Take 1 Tablet by mouth in the morning. 90 Tablet 1 025 Active metOLazone 2.5 MG Oral Tablet (Zaroxolyn) Take 1 Tablet by mouth in the morning. As needed directed by Cardiology or Nephrology. Active Spironolactone 12.5 MG OR TABS Take by mouth daily. Active Empagliflozin 10 MG Oral Tablet (Jardiance) Take 1 Tablet by mouth in the morning. 90 Tablet 3 025 Active Benzonatate 100 MG Oral Capsule (Tessalge Perleddie)Indication s:Cough Take by mouth 1 Capsule as needed in the morning AND 1 Capsule as needed at noon AND 1 Capsule as needed in the evening for Cough. 30 Capsule 1 022 2024 Discontinued(R efill) Levothyroxine Sodium 100 MCG Oral Tablet (Levoxyl)Indicati ons:Hypothyroidis m, postablative TAKE ONE TABLET by MOUTH DAILY FIRST THING IN THE MORNING AT LEAST 30 MINUTES PRIOR TO BREAKFAST OR OTHER MEDS 100 Tablet 1 01/24/20 24 10:43 AM EST 2024 Discontinued(R efill) Azelastine HCl 0.1 % Nasal Solution (Astelin) ADMINISTER TWO SPRAYS INto both nostrils in THE MORNING AND TWO SPRAYS BEFORE BEDTIME 30 mL 2 11/05/19 24 6:10 PM EDT 024 2024 Discontinued(R efill) Metoprolol Succinate ER 50 MG Oral Tablet Extended Release 24 Hour (toPROL XL) Take 1 Tablet by mouth in the morning. 90 Tablet 1 05/06/19 25 3:48 PM EDT 2024 Discontinued(R efill) Ipratropium-Albut keila 0.5-2.5 (3) MG/3ML Inhalation Solution (Duoneb) inhale one vial (3mL) via nebulizer four times daily as Needed for shortness of breath or wheezing 1080 mL 02/10/20 24 3:48 PM EST 024 2024 Discontinued(R efill) Empagliflozin 10 MG Oral Tablet (Jardiance) Take 2 Tablets by mouth in the morning. 2024 Discontinued Benzonatate 100 MG Oral Capsule Take 1 Capsule by mouth 3 times a day as needed for Cough. 025 2024 Discontinued(R efill) Potassium Chloride Jodie ER 10 MEQ Oral Tablet Extended Release Take 2 Tablets by mouth in the morning and 2 Tablets before bedtime. 540 Tablet 3 025 2024 Discontinued(R efill) documented as of this encounter (statuses as of 05/20/2024) Active Problems Problem Noted Date Diagnosed Date S/P tricuspid valve repair 04/09/2024 Hypothyroidism 04/09/2024 Hyperparathyroidism 04/09/2024 Moderate tricuspid regurgitation 03/23/2024 Esophageal dysmotility 03/23/2024 Chronic right-sided heart failure 03/20/2024 Atherosclerosis of [place] co ronary artery of [place] heart without angina pectoris 04/03/2023 Major [...] Assessment & Plan (07/10/2021 12:27 PM EDT): [facility] Call: I would have her [...] and amiodarone. On warfarin being managed by [facility] pharmacy. History of TIA [...] PM EST): Symptoms well controlled on omeprazole technician terminal [...] IM/IV Chest Xray Additional Comments: Followed by willow machine operator - Dr. Rashel Sales [place] [...] 40mg IM/IV CBC Chest Xray Followed by willow machine operator - Dr. Rashel Sales [place] [...] (07/12/2011): Per CKD protocol #1 [employer] Other*[id number] 06/02/2010 04/18/2011 Overview (06/02/2010): PROJECT: #[id number], SPONSOR: Aileen, PI: Adolfo De Jesus MD [...] can be closed. CONTACT: Roberto Carlos Huertas, Compressor Mechanic Type 2 diabetes mellitus wit h [...] CG/0.3 mL, 12 YRS AND ABOVE, [facility] 12/03/2022 COVID-19, mRNA, LNP-s, PF, B [...] Sign Reading Time Taken Comments Blood Pressure 128/67 04/22/2024 2:53 PM EST Pulse 96 04/22/2024 2:53 PM EST Temperature 36.6 °C (97.8 °F) 04/22/2024 2:53 PM ES T Respiratory Rate 20 04/22/2024 2:53 PM EST Oxygen Saturation 95% 04/22/2024 2:53 PM EST Inhaled Oxygen Concentration - - Weight 61.2 kg (135 lb) 04/22/2024 2:53 PM EST Height - - Body Mass Index 26.37 03/26/2024 1:44 PM EST documented in this encounter Functional Status * Are you deaf or do you have serious difficulty hearing? Answer Date of Assessment Author Yes 03/13/2024 3:44 PM EST Maury Vasquez RN * Are you blind or do you have serious difficulty seeing, even when wearing glasses? Answer Date of Assessment Author No 03/13/2024 3:44 PM EST Maury Vasquez RN * Do you have serious difficulty walking or climbing stairs? (5 years old or older) Answer Date of Assessment Author Yes 03/13/2024 3:44 PM EST Maury Vasquez RN * Do you have difficulty dressing [...] 3:44 PM EST Maury Vasquez RN documented as of this encounter Mental Status * Because of a physical, mental, or emotional condition, do you have serious difficulty concentrating, remembering, or making decisions? (5 years old or older) Answer Entry Date Author Yes 03/13/2024 3:44 PM EST Maury Vasquez RN documented in this encounter Patient Instructions * Patient Instructions* Aurea Crespo MD - 04/22/2024 3:29 PM EST -go back down to 10 mg daily jardiance -keep taking torsemide 150 mg daily and spironolactone 12.5 mg daily -start potassium 10 mEq >> take 4 tabs today when you get home and another 4 tabs at bedtime;then starting tomorrow take 2 tabs twice daily -hold metolazone today and take next doses only when/if Dr Molina or I tell you to -repeat blood tests of kidney function on 04/24 -leave it to [facility] to follow up on upper respiratory symptoms related to ? Virus -no change to other meds -keep following sick day rule with jardiance -keep weighing yourself daily and stay on 70 oz fluid limit documented in this encounter Progress Notes * Aurea Crespo MD - 04/22/2024 3:02 PM EST NEPHROLOGY CLINIC NOTE Nephrology [address] [place] [address] 04/22/2024, 3:02 PM Patient Name: Abdi Bowling BACKGROUND: 68 year old female presents for f/u of albuminuric CKD 3B attributed to cardiorenal syndrome Past medical history includes rheumatic heart disease, status post mitral valve replacement 1993; chronic AFib with tachy-sammi syndrome, heart failure with preserved ejection fraction, past embolic myocardial infarction and TIA, COPD, type 2 diabetes, CKD 3B. Also significant chronic pain issues. Negative albuminuria w/u [id number] fopr 1/2 gm albuminuria. Follows w/ Dr Molina H/o stage II VICKY with creatinine going from baseline 1.6-1.7 to peak at 3.7 on April 24 2023. Up trend began mid March. Also some issues with mild hyponatremia same timeframe with diana sodium 129. She does daily standing weights with [employer] [facility] at home sent by [employer]. Clinic weight review shows > Feb 2022 weighed 110 lb; in September 2022 weighed 130; since late November 2022 - February 2023 in 140s consistently. Home blood pressure checks: N but does standing weights History of stones: N Family history of CKD or ESRD: M w/ CKD 3B > at age 88 had Covid and ESRD managed conservatively NSAID use: N Herbals/supplements: N Last hospital stay: 12/2021 for leg surgery; early February 2022 for bleeding related to supratherapeutic INR related to cruise/virus; June 2023 vol OL TODAY 11/18/2023: ACc by her cousin/caregiver. Did trip to [facility] 10/31-. C/o significant 4-5 days RLE edema (always mildly edematous). Today 142 < 144 lb. Caregiver states breathes much better with wt 137# For upcoming tricuspid repair > [facility] approved but has to get equipment/contract in. 10/21 Dr Molina upped spironolactone to 25 mg daily and added second 50 mg torse dose to 100 mg daily dose. She was 143 lb that day in clinic; clinic wts like OP came down but then /now uptrending. TODAY 01/02/2024: denies acute all clinical events status post ALAN earlier this week, showing good function of mitral valve prosthesis and ongoing severe tricuspid regurg for which she is under consideration for a clipping procedure at [place]. Jardiance on hold b/c had severe UTI shortly after starting; plan is to stay off until gets throughclipping procedure and then try restarting. Wondering if she should get covid vaccination before 02/12 valve procedure Has not needed prn metolazone x a few mos; uses at cardiology direction. Remains on low Na diet; limits fluid to under 2K mL/ about 70 oz/day. Acc by caregiver today TODAY 04/22/2024: wt was already going up late last week to 142. recent jardiance increase to 20 mg daily; then had 10 lb wt gain on 04/20 to 145 lb; had extra 5 mg metolazone on 04/21 d/t this; also started on spironolactone 12.5 mg daily. Was 134 lb at home today; was 136 lb. Was to take metolazone 2.5mg today but has not since seeing labs Also today had CXR (my read; report pending) > no effusions or PNA; minimal vol OL if any. [place] 03/13-03/23 [place] [facility] bridged back to warfarin; had esoph dysmotility on esophagram as well Had wanted to do 2 valves but couldn't do second safely. Since procedure retaining fluid States swallowing issues resolved; to go back to see team REVIEW OF SYSTEMS: General: No fatigue, weight as above Head: No significant headache Respiratory: +rhinorrhea; + cough w/ min clear phlegm; + worse shortness of breath Cardiovascular:No chest pain, stable chronic palpitations Urinary: No dysuria, No hematuria. No flank pain > no new /worrisome voiding sx Musculoskeletal: + edema much better than 48 hrs back One day of presyncopal or orthostatic symptoms; no falls; legs were weak Current Outpatient Medications Medication Sig Dispense Refill acetaminophen (TYLENOL) 500 MG Tablet Take 1 Tablet by mouth every 6 hours as needed for Pain. Magnesium Glycinate 665 MG Oral Capsule One daily 100 Capsule 1 traMADol HCl 50 MG Oral Tablet [...] by mouth every evening.) 100 Capsule 3 Levothyroxine Sodium 100 MCG Oral Tablet (Levoxyl) TAKE ONE TABLET by MOUTH DAILY FIRST THING IN THE MORNING AT LEAST 30 MINUTES PRIOR TO BREAKFAST OR OTHER MEDS 100 Tablet 1 rOPINIRole HCl 2 MG [...] MG OR TABS Take by mouth daily. Benzonatate 100 MG Oral Capsule Take 1 Capsule by mouth 3 times a day as needed for Cough. Empagliflozin 10 MG Oral Tablet (Jardiance) Take 1 Tablet by mouth in the morning. 90 Tablet 3 Potassium Chloride Jodie ER 10 MEQ Oral Tablet Extended Release Take 2 Tablets by mouth in the morning and 2 Tablets before bedtime. 540 Tablet 3 milk of magnesia (MOM) 400 MG/5ML suspension Take 15 mL by mouth daily as needed for Constipation. Lidocaine HCl 4 % External Solution Apply topically to affected area once for 1 dose. Apply to mouth ulcers as needed 50 mL 0 Nystatin 738632 UNIT/ML Mouth/Throat Suspension Swish and swallow 5 mL in the morning and 5 mL at noon and 5 mL in the evening and 5 mL before bedtime. For thrush.. 240 mL 1 Nebulizer/Tubing/Mouthpiece Kit Use as directed 1 [...] complications (Please comment) dystonia Promethazine Tetracycline Nausea/vomiting PHYSICAL EXAMINATION: BP Readings from Last 6 Encounters: 04/22/24 128/67 04/22/24 118/60 04/16/24 122/62 04/09/24 112/62 04/01/24 128/78 03/26/24 102/66 Wt Readings from Last 6 Encounters: 04/22/24 61.2 kg (135 lb) 04/16/24 66.2 kg (146 lb) 04/09/24 64.3 kg (141 lb 12.8 oz) 04/01/24 65.8 kg (145 lb) 03/26/24 64.5 kg (142 lb 1.6 oz) 03/25/24 63 kg (138 lb 12.8 oz) Pulse Readings from Last 6 Encounters: 04/22/24 96 04/22/24 98 04/16/24 93 04/09/24 64 04/01/24 74 03/26/24 88 NAD, oriented x 3, ambulatory w/ walker; mild upper airway sounds, frequent coughs Normocephalic, atraumatic, eomi nonicteric sclerae MMM Supple neck Irregularly irregular w/ valve click SM w/o r; 1+ BLE edema CTAB w/ reduced air mvt NT abd, +BS, soft No cyanosis or clubbing No rash No tremor, focal or global weakness; fluent speech, good historian LABS: Recent Labs Units 04/22/24 0942 04/15/24 1019 04/09/24 0957 04/01/24 0954 SODIUM - [facility] mmol/L 135 140 136 137 POTASSIUM - [facility] mmol/L 3.1* 3.9 3.2* 3.8 CHLORIDE - [facility] mmol/L 85* 97* 88* 96* CO2 - [facility] mmol/L 35* 32 34* 29 ESTIMATED GLOMERULAR FILTRATION RATE - [facility] mL/min 24* 28* 30* 31* BUN - [facility] mg/dL 39* 40* 67* 27* CREATININE - [facility] mg/dL 2.2* 1.9* 1.8* 1.7* Recent Labs Units 03/25/24 0950 03/23/24 0641 03/22/24 0551 03/22/24 0301 03/13/24 1658 12/11/23 1044 10/30/23 1034 10/22/23 1143 10/02/23 1100 07/17/23 0815 HGB g/dL 12.0 12.2 12.2 11.6* < > 13.8 13.3 < > 12.3 11.2* FERRITIN - [facility] ng/mL -- -- -- -- -- 94 150 -- 109 238* TRANSFERRIN SATURATION PERCENT - [facility] % -- -- -- -- -- 17 12* -- 12* 11* < > = values in this interval not displayed. Recent Labs Units 04/22/24 0942 04/15/24 1019 04/09/24 0957 04/01/24 0954 03/25/24 0950 03/23/24 0641 03/22/24 0551 03/21/24 0633 03/20/24 0429 07/03/23 0942 06/26/23 1017 04/03/23 1130 03/21/23 0942 03/13/23 1145 CALCIUM - [facility] mg/dL 10.8* 9.4 10.2 9.8 < > 10.5* 10.3* 10.2 9.6 < > 9.9 < >9.8 9.8 PHOSPHORUS - [facility] mg/dL -- -- -- -- -- 4.2 3.3 2.8 2.8 < > -- -- 3.0 -- 25-HYDROXY VITAMIN D - [facility] ng/mL -- -- -- -- -- -- -- -- -- -- 79 -- 68 -- PTH - [facility] pg/mL -- -- -- -- -- -- -- -- -- -- 165* -- 151* 157* < > = values in this interval not displayed. Recent Labs Units 03/14/24 0545 07/29/23 0949 04/24/23 1127 11/28/22 0957 HEMOGLOBIN A1C - [facility] % 6.7* 6.7* 7.3* 7.0* Recent Labs Units 09/26/23 1234 05/07/23 1255 12/03/22 1434 ALBUMIN / CREATININE RATIO, URINE - [facility] mg/g Creat 209* 400* 594* Recent Labs Units 09/26/23 1234 CLARITY, URINE - [facility] Clear GLUCOSE, URINE - [facility] mg/dL Negative BILIRUBIN, URINE - [facility] Negative KETONE, URINE - [facility] mg/dL Negative SPECIFIC GRAVITY, URINE - [facility] 1.009 BLOOD, URINE - [facility] Negative PH, URINE - [facility] Units 6.5 PROTEIN, URINE - [facility] mg/dL Trace* UROBILINOGEN, URINE - [facility] mg/dL Normal NITRITE, URINE - [facility] Negative ESTERASE, URINE - [facility] Moderate* BACTERIA, URINE - [facility] /HPF 0-25 WBC, URINE - [facility] /HPF 20-29* RBC, URINE - [facility] /HPF 3-5* ASSESSMENT AND PLAN: CKD (chronic kidney disease) stage 4, GFR 15-29 ml/min ([facility]) (Primary) - NEPHROLOGY FOLLOW UP APPT (DEPARTMENT USE ONLY); Future; Expected date: 07/23/2024 - MAGNESIUM; Future; Expected date: 04/24/2024 Cough Chronic heart failure with preserved ejection fraction (HCC) Hypokalemia Acute on chronic right-sided heart failure (HCC) Other orders - Empagliflozin 10 MG Oral Tablet (Jardiance); Take 1 Tablet by mouth in the morning. - Potassium Chloride Jodie ER 10 MEQ Oral Tablet Extended Release; Take 2 Tablets by mouth in the morning and 2 Tablets before bedtime. CKD4 is somewhat worse on recent labs -load potassium -lower jardiance dose down Acute HF not severe enough to need ERbut will need close f/u Torsemide and moetolazone dosing as below Weights, fluid limits as below Patient Instructions -go back down to 10 mg daily jardiance -keep taking torsemide 150 mg daily and spironolactone 12.5 mg daily -start potassium 10 mEq >> take 4 tabs today when you get home and another 4 tabs at bedtime;then starting tomorrow take 2 tabs twice daily -hold metolazone today and take next doses only when/if Dr Molina or I tell you to -repeat blood tests of kidney function on 04/24 -leave it to [facility] to follow up on upper respiratory symptoms related to ? Virus -no change to other meds -keep following sick day rule with jardiance -keep weighing yourself daily and stay on 70 oz fluid limit Aurea Crespo MD Nephrology [address] [place] [address] CC: REF: AUREA CRESPO PCP: MERCEDES OGRMAN [address] [place] [address] [place] [address] This chart was completed in part utilizing [employer] Speech Voice Recognition Software. Randomword insertions, pronoun errors, and incomplete sentences are an occasional consequence of this system due to software limitations, and ambient noise. Any questions or concerns about the content, text, or information contained within the body of this dictation should be directly addressed to the provider for clarification. documented in this encounter Nursing Notes * Avelina Davis RN - 04/22/2024 3:00 PM EST Follow up visit today. Has been having increased issues with fluid restriction. Dr Molina had ordered some Metoalzone due to increased swelling-145 lbs on Saturday. He also ordered Spironolactone 12.5mgdaily. Saturday she had BLE pitting edema. Was seen by Dr Blanco on . Please refer to his notes. Had CXR prior to today's appointment. Having a productive cough and sinus drainage. Moris reports cough sounds rattley. documented in this encounter Plan of Treatment Upcoming Encounters Date Type Department Care Team (Late st Contact Info) Description 05/20/2024 11:20 AM EDT Office Visit Family Medicine [address] [place] [address] Mercedes Gorman MD [address] [place] [address] [place] [address] 05/21/2024 6:00 AM EDT Anticoagulation [facility], Denia Yee [address] [place] [address] [place] [address] [facility], [address] [place] [address] 05/25/2024 10:40 AM EDT Office Visit Gastroenterology, [place] [address] [place] [address] Hakan Berg PA-C [address] [place] [address] 06/11/2024 5:00 PM EDT Home Visit [facility], [facility] [address] [place] [address] Valentina Laws RN [address] [place] [address] 06/23/2024 2:00 PM EDT Office Visit Hematology/Oncology Gertrude Lacy [place] [address] [facility] [place] [phone] Bouchra Del Cid CRNP [address] [place] [address] [place] [address] 06/24/2024 1:40 PM EDT Office Visit Family Medicine [address] [place] [address] Mercedes Gorman MD [address] [place] [address] [place] [address] 07/14/2024 3:00 PM EDT [facility] [address] [place] [phone] 07/15/2024 2:00 PM EDT Office Visit Cardiology, [facility] [address] [place] [phone] Maria Ines Bowers CRNP [address] [place] [address] 08/20/2024 3:00 PM EDT Office Visit Nephrology [address] [place] [address] Aurea Crespo MD [address] [facility] [place] [address] 12/09/2024 10:00 AM EDT Office Visit Cardiology, [facility] [address] [place] [phone] Hadley Molina MD [address] [place] [address] 01/08/2025 2:00 PM EST Office Visit Family Medicine [address] [place] [phone] Mercedes Gorman MD [address] [place] [address] [place] [address] 03/01/2025 2:40 PM EST Office Visit Nephrology [address] [place] [address] Aurea Crespo MD [address] [place] [address] 05/19/2025 2:00 PM EDT Office Visit Allergy/Immunology [facility] [address] [place] [address] Rae Ramirez PA-C [address] [place] [address] Scheduled Procedures Name Priority Associated Diagnoses Date/Ti me COLONOSCOPY FLEXIBLE PROXIMAL DIAGNOSTIC Recall Screen for colon cancer Health Maintenance Due Date Last Done Comments Cologuard 1998 Sigmoidoscopy 1998 Fecal Occult Blood Test 03/26/2014 03/26/19 14, 11/20/2010, 11/09/2009 Colonoscopy 02/23/2023 02/24/2020, 07/2020, 07/16/2013, Additional history exists Colorectal Cancer Screening 02/23/2023 Adult Wellness Visit 07/31/2023 07/30/2022, 07/05/2021, 07/04/2020 Diabetic Foot Exam 07/31/2023 07/30/2022, 0 09/02/2019, [...] Additional history exists CKD PHOS USE SMARTSET 60169 03/23/2025 02/0 04/2024, 03/22/2024, 03/21/2024, Additional history exists CKD HGB USE SMARTSET 23279 03/25/202503/25, 03/23/2024, 03/22/2024, Additional history exists Diabetic Eye Exam 05/14/2025 05/14/2024, , 12/27/2020, Additional history exists DTap/Tdap Vaccines (3 - [...] this encounter Medical Devices Implanted Type Area Exercise Specialist Device Identifier Shelf Expiration Date Model / Serial / Lot [place] Suture Biocomposite - Sn/A - [id number] Implanted:Qty: 2 on 12/13/2021 by Moris Jimenez, DO at OR [facility] Left: Leg Lower [employer] 07/18/2024 [id number] / N/A / [id number] Vitoss Bbtrauma Foam Pack - [id number] - [id number] Implanted:Qty: 1 on 12/13/2021 by Moris Jimenez, DO at OR [facility] Left: Leg Lower MICHA : TRAUMA 01/15/2022 / [id number] / [id number] System Delivery Triclip Xtw - [id number] Implanted:Qty: 1 on 03/18/2024 [place] [facility] [facility] [facility] 08/11/2025 [id number] / / documented as of this encounter Results * (ABNORMAL) MAGNESIUM (04/24/2024 2:30 PM EST) Magnesium 2.9(H) 1.5 - 2.6 mg/dL 04/24/2024 10:05 PM EST [facility] Blood Venous blood specimen / Unknown Venipuncture / Unknown 04/24/2024 2:30 PM EST 04/24/2024 2:30 PM EST us Aurea Crespo MD LAB BLOOD ORDERABLES Kacy l Result [facility] [address] [place] [address] documented in this encounter Visit Diagnoses Diagnosis [...] fibrillation (HCC) Generalized anxiety disorder Atherosclerosis of [place] coronary artery without angina pectoris, unspecified whether [place] or transplanted heart Hypothyroidism, postablative Other postablative hypothyroidism Dyslipidemia, goal LDL below 100 Other and unspecified hyperlipidemia CKD (chronic kidney disease) stage 4, GFR 15-29 ml/min ([facility])- Primary Chronic kidney disease, Stage IV (severe) Chronic heart failure with preserved ejection fraction ([facility]) Hypokalemia Hypopotassemia Acute on chronic right-sided heart failure (HCC) documented in this encounter Advance Directives * [...] Advance Directives occurred with: Patient Care Teams Chief Chemist Relationship Specialty Start Date End Date Mercedes Gorman MD [address] [place] [address] [place] [phone] PCP - General Family Medicine 12/30/23 documented as of this encounter
--- OUTSIDE RECORDS SUMMARY | 2024-06-10 06:41 | External Medical Summary | Summary of Care ---
Author Name Unknown Organization [facility] Address [address] [facility] [place] [address] Phone [phone] Care Team Providers Care Fisher Hand Line Name Role Phone Shara Ray MD Primary Care Provide r Reason for Visit * Reason Comments Dosage Adjustment Via Phone (anticoag Cl inic) Encounter Details Date Type Department Care Team (Late st Contact Info) Description 05/15/2024 6:00 PM EDT Anticoagulation [facility], [address] [place] [id number] [place] [address] [facility] current use of anticoagulant therapy*; History [...] as of this encounter (statuses as of 05/16/2024) Medications acetaminophen (TYLENOL) 500 MG Tablet Take [...] needed 50 mL 12/07/19 23 Active Nystatin 672900 UNIT/ML Mouth/Throat SuspensionIndicati ons:Thrush Swish and swallow [...] use of insulin ([facility]) Check your glucose daily as needed 1 Kit 07/25/19 Active LancetsIndications :Type 2 diabetes mellitus with stage 3b chronic kidney disease, without long-term current use of insulin ([facility]) Use as directed. 100 Each 07/25/19 Active Glucose Blood In Vitro StripIndications:T ype 2 diabetes mellitus with stage 3b chronic kidney disease, without long-term current use of insulin ([facility]) Use as directed. 100 Strip 07/25/19 24 [...] Cough. 30 Capsule 1 05/12/19 25 Active guaiFENesin-Codein e 100-10 MG/5ML Oral Solution (Robitussin AC)Indications:Bro nchitis, complicated Take 5 mL by mouth 3 times a day as needed for Cough. 120 mL 05/15/19 25 Active documented as of this encounter (statuses as of 05/16/2024) Active Problems Problem Noted Date Diagnosed Date S/P tricuspid valve repair 04/09/2024 Hypothyroidism 04/09/2024 Hyperparathyroidism 04/09/2024 Moderate tricuspid regurgitation 03/23/2024 Esophageal dysmotility 03/23/2024 Chronic right-sided heart failure 03/20/2024 Atherosclerosis of [place] co ronary artery of ely shoshone heart without angina pectoris 04/03/2023 Major [...] Remote Patient Monitoring Vendor: [facility] Device(s): Connected Scale Self - Management Plan [...] Assessment & Plan (07/10/2021 12:27 PM EDT): [facility] Call: I would have her do the [...] On warfarin being managed by [facility] pharmacy. History of TIA (transient ischemic attack) [...] PM EST): Symptoms well controlled on omeprazole long term [...] as of this encounter (statuses as of 05/16/2024) Resolved Problems Problem Noted Date Diagnosed Date [...] IM/IV Chest Xray Additional Comments: Followed by infrastructure analyst - Dr. Rashel Sales [facility] [...] 40mg IM/IV CBC Chest Xray Followed by infrastructure analyst - Dr. Rashel Sales [facility] [...] (07/12/2011): Per CKD protocol #1 [employer] Other*[id number] 06/02/2010 04/18/2011 Overview (06/02/2010): PROJECT: #[id number], SPONSOR: Aileen, PI: Adolfo De Jesus MD [...] can be closed. CONTACT: Roberto Carlos Huertas, Pay Station Attendant Type 2 diabetes mellitus wit h [...] as of this encounter (statuses as of 05/16/2024) Immunizations Name Administration Dates Next Due COVID-19 mRNA, LNP-s, No Pre serve, 2-Dose Series (Moderna) 04/19/2020,03/22/2020 COVID-19, MRNA-LNP, PF, 30 M CG/0.3 mL, 12 YRS AND ABOVE, IM (Fromography-Comirnat) 12/03/2022 COVID-19, mRNA, LNP-s, PF, B ooster, [...] in this encounter Progress Notes * Silvia Ware, [facility] - 05/16/2024 10:02 AM EDT Images from the original note were not included. Medication Therapy Disease Management - Anticoagulation Patient: Abdi Tello Dash | : 1955 Subjective Contacts Contact Date/Time Type Contact Phone/Fax 05/15/2024 04:01 PM EDT Email SMS () [phone] Patient not accepting updates 05/15/2024 04:28 PM EDT Phone (Outgoing) Abdi Bowling (Self) [phone] (M) Patient-Reported Symptoms: Patient Findings Positives: Change in diet/appetite (pt reports she is eating better since being sick) Negatives: Signs/symptoms of bleeding, Change in health, Upcoming invasive procedure, Missed doses,Extra doses, Change in medications, Bruising Comments: Pt was wondering about 05/18 - typically she takes 7.5 mg on Mondays and I advised 5 mg. With 2 elevated INRs last week (7.2, 6.2), I am hesitant to give 2 days of 7.5 mg so close to each other. Pt agreeable to INR check this Wed, [facility] can instruct additional 7.5 mg bolus dosing on if necessary. Pt in agreement with plan. Objective Current Warfarin Dose As of 05/15/2024 Warfarin maintenance plan: 7.5 mg (2.5 mg x 3) every Mon; 5 mg (2.5 mg x 2) all other days INR Result As of 05/15/2024 INR goal: 3.0-3.5 INR used for dosin.3 (05/15/2024) Assessment & Plan Warfarin Plan As of 05/15/2024 Full warfarin instructions: 05/16: 7.5 mg; 05/18: 5 mg; Otherwise 7.5 mg every Mon; 5 mg all other days Next INR check: 05/20/2024 Repeat PT/INR in 4 day(s) - pt aware [facility] will call on with results. Weekly dose: N/A; short check Additional Dosing Information: Description GML WedFri, prefers Wed ([facility], [facility], or [facility]) Please also send myG message Silvia Ware RP Clinical Pharmacist 05/16/2024, 10:02 AM * Silvia Ware RPh - 05/15/2024 3:28 PM EDT Medication Therapy Disease Management - Anticoagulation Patient: Abdi Elisha Bowling | : 1955 Subjective Contacts Contact Date/Time Type Contact Phone/Fax 05/15/2024 04:01 PM EDT Email SMS () [phone] Patient not accepting updates 05/15/2024 04:28 PM EDT Phone (Outgoing) Abdi Bowling (Self) [phone] (M) Patient-Reported Symptoms: Advised 5 mg today and that I will call tomorrow to review results & provide further dosing. Objective Current Warfarin Dose As of 05/15/2024 Warfarin maintenance plan: 7.5 mg (2.5 mg x 3) every Mon; 5 mg (2.5 mg x 2) all other days INR Result As of 05/15/2024 INR goal: 3.0-3.5 INR used for dosing: No new INR was available at the time of this encounter. Assessment & Plan Warfarin Plan As of 05/15/2024 Full warfarin instructions: 7.5 mg every Mon; 5 mg all other days Next INR check: 05/15/2024 Repeat PT/INR -- in process Weekly dose: N/A; short check Additional Dosing Information: Description GML WedFri, prefers Wed ([facility], [facility], or [facility]) Please also send myG message Silvia Ware [facility] Clinical Pharmacist 05/15/2024, 3:28 PM * Brianna Zapata, afternoon babysitter - 05/15/2024 3:20 PM EDT Results for INR still pending. Placed pt on Saturday morning's schedule for review. Please advise. Thank you, Brianna Zapata Community Sports Coordinator [facility] ([facility]) 05/15/2024, 3:20 PM documented in this encounter Plan of Treatment Upcoming Encounters Date Type Department Care Team (Late st Contact Info) Description 05/18/2024 8:00 AM EDT Home Visit [facility] [address] [facility] [place] [address] Valentina Laws, TANISHA 132 [facility] [place] [address] 05/19/2024 1:30 PM EDT Office Visit Allergy/Immunology [facility] [address] [place] [address] Macario Pathak MD [address] [place] [address] 05/20/2024 11:20 AM EDT Office Visit Family Medicine [address] [phone] Shara Ray MD [address] [place] [address] [place] [address] 05/21/2024 6:00 AM EDT Anticoagulation [facility], Denia Yee [address] [place] [address] [place] [address] [facility], [address] [place] [address] 06/11/2024 5:00 PM EDT Home Visit [facility], [facility] [address] [place] [address] Valentina Laws RN [address] [place] [address] 06/23/2024 2:00 PM EDT Office Visit Hematology/Oncology [facility] [phone] Bouchra Del Cid CRNP 400 [facility] [place] [address] 06/24/2024 1:40 PM EDT Office Visit Family Medicine [address] [place] [address] Shara Ray MD [address] [place] [address] [place] [address] 07/14/2024 3:00 PM EDT Cardiac Studies Cardiac Studies, [facility] [address] [place] [phone] 07/15/2024 2:00 PM EDT Office Visit Cardiology, [facility] [address] [place] [phone] Maria Ines Bowers CRNP [address] [place] [address] 08/20/2024 3:00 PM EDT Office Visit Nephrology [address] [place] [address] Aliyah Lacey MD [address] [place] [address] 12/09/2024 10:00 AM EDT Office Visit Cardiology, [facility] [address] [place] [phone] Hadley Molina MD [address] [place] [address] 01/08/2025 2:00 PM EST Office Visit Family Medicine [address] [place] [phone] Shara Ray MD [address] [place] [address] [place] [address] 03/01/2025 2:40 PM EST Office Visit Nephrology [address] [place] [address] Aliyah Lacey MD [address] [place] [address] Scheduled Procedures Name Priority Associated Diagnoses Date/Ti [...] Additional history exists CKD PHOS USE SMARTSET 28400 03/23/2025 02/0 04/2024, 03/22/2024, 03/21/2024, Additional history exists CKD HGB USE SMARTSET 01561 03/25/202503/25, 03/23/2024, 03/22/2024, Additional history exists Diabetic [...] this encounter Medical Devices Implanted Type Area Network Engineer Administrator Device Identifier Shelf Expiration Date Model / Serial / Lot [place] Suture Biocomposite - Sn/A - [id number] Implanted:Qty: 2 on 12/13/2021 by Moris Jimenez DO at OR [facility] Left: Leg Lower [employer] 07/18/2024 AR-2324BCC / N/A / [id number] Vitoss Bbtrauma Foam Pack - [id number] - [id number] Implanted:Qty: 1 on 12/13/2021 by Moris Jimenez DO at OR [facility] Left: Leg Lower MICHA : TRAUMA 01/15/2022 [id number] / [id number] / [id number] System Delivery Triclip Xtw - [id number] Implanted:Qty: 1 on 03/18/2024 at [facility] [employer] 08/11/2025 [id number] / / documented as of this [...] fibrillation (HCC) Generalized anxiety disorder Atherosclerosis of [place] coronary artery without angina pectoris, unspecified whether [place] sh[place] or transplanted heart Hypothyroidism, postablative Other postablative hypothyroidism Dyslipidemia, goal LDL below 100 Other and unspecified hyperlipidemia long term care social worker current use of anticoagulant therapy- Primary History [...] Advance Directives occurred with: Patient Care Teams Fisher Hand Line Relationship Specialty Start Date End Date Shara Ray MD [address] [place] [address] [place] [phone] PCP - General Family Medicine 12/30/23 documented as of this encounter
--- OUTSIDE RECORDS SUMMARY | 2024-06-10 06:41 | External Medical Summary | Summary of Care ---
Author Name Unknown Organization [facility] Address [address] [facility] [address] Phone [phone] Care Team Providers Care Golf Superintendent Name Role Phone Shara Ray MD Primary Care Provide r Encounter Details Date Type Department Care Team ([facility] st Contact Info) Description 05/18/2024 8:00 AM EDT [facility] [address] [place] [address] Valentina Laws, TANISHA [address] [place] [address] Allergies Active Allergy Reactions Criticality Noted Date [...] as of this encounter (statuses as of 05/19/2024) Medications acetaminophen (TYLENOL) 500 MG Tablet Take [...] needed 50 mL 12/07/19 23 Active Nystatin 742177 UNIT/ML Mouth/Throat SuspensionIndicati ons:Thrush Swish and swallow [...] [facility] Use as directed. 100 Strip 11 [...] as of this encounter (statuses as of 05/19/2024) Active Problems Problem Noted Date Diagnosed Date S/P tricuspid valve repair 04/09/2024 Hypothyroidism 04/09/2024 Hyperparathyroidism 04/09/2024 Moderate tricuspid regurgitation 03/23/2024 Esophageal dysmotility 03/23/2024 Chronic right-sided heart failure 03/20/2024 Atherosclerosis of [place] co ronary artery of [place] heart without angina pectoris 04/03/2023 Major depressive [...] subsequent encounter 09/2021 Overview (12/05/2021): [facility] ER ulstrasound shows hematoma calf, INR 4.2, [...] Assessment & Plan (07/10/2021 12:27 PM EDT): [facility] Call: I would have [...] and amiodarone. On warfarin being managed by [facility] pharmacy. History of TIA [...] as of this encounter (statuses as of 05/19/2024) Resolved Problems Problem Noted Date Diagnosed Date [...] IM/IV Chest Xray Additional Comments: Followed by web production designer - Dr. Rashel Sales [facility] Assessment & Plan (12/07/2022 2:00 PM EDT): [...] 40mg IM/IV CBC Chest Xray Followed by web production designer - Dr. Rashel Sales [facility] Complicated UTI (urinary tract infection) 12/20/2021 05/17/2022 [...] (07/12/2011): Per CKD protocol #1 [employer] Other*[id number] 06/02/2010 04/18/2011 Overview (06/02/2010): PROJECT: #[id number], SPONSOR: Aileen, PI: Adolfo De Jesus MD [...] can be closed. CONTACT: Roberto Carlos Huertas, Conveyor Loader Type 2 diabetes mellitus wit h hemoglobin [...] as of this encounter (statuses as of 05/19/2024) Immunizations Name Administration Dates Next Due COVID-19 mRNA, LNP-s, No Pre serve, 2-Dose Series (Moderna) 04/19/2020,03/22/2020 COVID-19, MRNA-LNP, PF, 30 M CG/0.3 mL, 12 YRS AND ABOVE, IM ([facility]) 12/03/2022 COVID-19, mRNA, LNP-s, PF, B [...] Sign Reading Time Taken Comments Blood Pressure 102/52 05/18/2024 8:58 AM EDT Pulse 76 05/18/2024 8:58 AM EDT Temperature 36.6 °C (97.8 °F) 05/18/2024 8:58 AM ED T Respiratory Rate 18 05/18/2024 8:58 AM EDT Oxygen Saturation 98% 05/18/2024 8:58 AM EDT Inhaled Oxygen Concentration - - [...] Progress Notes * Valentina Laws RN - 05/18/2024 8:45 AM EDT Images from the original note were not included. Current Concerns: Patient seen for TIN#1- s/p [facility] 05/12/24- presented to ER with chest/neck pain. EKG revealed no ischemic changes. Echo without significant change. Cardiology did not think chest pain was consistent with coronary syndrome. Patient to seek GI for evaluation of esophageal dysmotility. Discharged home next day- 05/13. Reports feeling well. VS wnl Lungs clear but diminished Sob with exertion Oxygen at HS and prn day Nonpitting edema LLE Voiding without difficulty Bowels wnl Appetite good Taking fluids well Synopsis SmartLink Most Recent Value Past ~8 weeks 05/18/2024 04:03 05/17/2024 06:59 05/16/2024 08:31 Remote Monitoring Intermittent Vitals Weight 62 kg (136 lb 9.7 oz) CH:VITAL_READING_TYPE=SPOT CH:PERIPHERAL_BRAND=WITHINGS 05/18/2024 62 kg (136 lb 9.7 oz) CH:VITAL_READING_TYPE=SPOT CH:PERIPHERAL_BRAND=WITHINGS 61.8 kg (136 lb 4.3 oz) CH:VITAL_READING_TYPE=SPOT CH:PERIPHERAL_BRAND=WITHINGS 61.1 kg (134 lb 12.7 oz) CH:VITAL_READING_TYPE=SPOT CH:PERIPHERAL_BRAND=WITHINGS Physical Exam: Physical Exam Constitutional: Appearance: Normal appearance. Cardiovascular: Rate and Rhythm: Normal rate. Rhythm irregular. Pulses: Normal pulses. Pulmonary: Effort: Pulmonary effort is normal. Breath sounds: Normal breath sounds. Abdominal: General: Bowel sounds are normal. Palpations: Abdomen is soft. Musculoskeletal: General: Normal range of motion. Left lower leg: Edema present. Skin: General: Skin is warm and dry. Capillary Refill: Capillary refill takes 2 to 3 seconds. Neurological: General: No focal deficit present. Mental Status: She is alert and oriented to person, place, and time. Psychiatric: Mood and Affect: Mood normal. Behavior: Behavior normal. Review of Systems: Review of Systems Constitutional: Negative. Respiratory: Positive for shortness of breath. [...] Gaps Care gaps closed this contact: Education (05/18/24 8273) Type of education: Clinical/disease (05/18/24 9539) documented in this encounter Plan of Treatment Upcoming Encounters Date Type Department Care Team (Late st Contact Info) Description 05/19/2024 1:30 PM EDT Office Visit Allergy/Immunology [facility] [place] [address] [facility] [place] [address] Macario Pathak MD 200 [facility] [place] [address] 05/20/2024 11:20 AM EDT Office Visit Family [address] [place] [address] Shara Ray MD [address] [place] [address] [place] [address] 05/21/2024 6:00 AM EDT Anticoagulation Central[facility] Clinical Pharmacy Services, Denia Yee [address] [place] [address] [place] [address] [facility], [address] [place] [address] 05/25/2024 10:40 AM EDT Office Visit Gastroenterology, [facility] [address] [place] [address] Hakan Berg, PA-C [address] [place], [place] [phone] 06/11/2024 5:00 PM EDT [facility], [facility] 132 [facility] [place] [address] Valentina Laws, TANISHA [facility] [place] [address] 06/23/2024 2:00 PM EDT Office Visit Hematology/Oncology [facility] [address] [facility] [place] [phone] Bouchra Del Cid CRNP 400 [facility] [place] [address] 06/24/2024 1:40 PM EDT Office Visit Family Medicine [address] [place] [address] Shara Ray MD [address] [place] [address] [place] [address] 07/14/2024 3:00 PM EDT Cardiac Studies Cardiac Studies, [facility] [address] [place] [phone] 07/15/2024 2:00 PM EDT Office Visit Cardiology, [facility] [address] [place] [phone] Maria Ines Bowers CRNP [address] [place] [address] 08/20/2024 3:00 PM EDT Office Visit Nephrology [address] [place] [address] Aliyah Lacey MD 200 [facility] [place] [address] 12/09/2024 10:00 AM EDT Office Visit Cardiology, [facility] [address] [place] [phone] Hadley Molina MD [address] [place] [address] 01/08/2025 2:00 PM EST Office Visit Family Medicine [address] [place] [phone] Shara Ray MD [address] [place] [address] [place] [address] 03/01/2025 2:40 PM EST Office Visit Nephrology [address] [place] [address] Aliyah Lacey MD 200 [place] [address] Scheduled Procedures Name Priority Associated Diagnoses Date/Ti [...] Additional history exists CKD PHOS USE SMARTSET 27077 03/23/2025 02/0 04/2024, 03/22/2024, 03/21/2024, Additional history exists CKD HGB USE SMARTSET 46096 03/25/202503/25, 03/23/2024, 03/22/2024, Additional history exists Diabetic [...] this encounter Medical Devices Implanted Type Area Safety Fire Boss Device Identifier Shelf Expiration Date Model / Serial / Lot [place] Suture Biocomposite - Sn/A - [id number] Implanted:Qty: 2 on 12/13/2021 by Moris Jimenez DO at OR [facility] Left: Leg Lower [employer] 07/18/2024 AR-2324BCC / N/A / [id number] Vitoss Bbtrauma Foam Pack - [id number] - [id number] Implanted:Qty: 1 on 12/13/2021 by Moris Jimenez DO at OR [facility] Left: Leg Lower MICHA : TRAUMA 01/15/20227080-5962 / [id number] System Delivery Triclip Xtw - [id number] Implanted:Qty: 1 on 03/18/2024 at [facility]ARDIAC LABS [facility] The Box 08/11/2025 [id number] / / documented as of this [...] Advance Directives occurred with: Patient Care Teams Golf Superintendent Relationship Specialty Start Date End Date Shara Ray MD [address] [place] [address] [place] [address] PCP - General Family Medicine 12/30/23 documented as of this encounter
--- OUTSIDE RECORDS SUMMARY | 2024-06-10 06:41 | External Medical Summary | Summary of Care ---
Author Name Unknown Organization [facility] Address [address] [facility] [place] [address] Phone [phone] Care Team Providers Care Cardiovascular Surgeon Name Role Phone Shara Ray MD Primary Care Provide r Reason for Visit * Reason Comments Allergy Return Encounter Details Date Type Department Care Team (Late st Contact Info) Description 05/19/2024 1:30 PM EDT Office Visit Allergy/Immunology [facility] [address] [facility] [place] [address] Macario Pathak MD [address] [place] [address] Chronic cough*; Seasonal allergic rhinitis due to [...] needed 50 mL 12/07/19 23 Active Nystatin 331648 UNIT/ML Mouth/Throat SuspensionIndicati ons:Thrush Swish and swallow [...] disease, without long-term current use of insulin ([facility]) Check your glucose daily as needed 1 Kit 07/25/19 Active LancetsIndications :Type 2 diabetes mellitus with stage 3b chronic kidney disease, without long-term current use of insulin ([facility]) Use as directed. 100 Each 11 07/25/19 Active Glucose Blood In Vitro StripIndications:T ype 2 diabetes mellitus with stage 3b chronic kidney disease, without long-term current use of insulin ([facility]) Use as directed. 100 Strip 07/25/19 Active [...] 05/19/2024 rOPINIRole HCl 2 MG Oral Tablet (Requip)Indication [...] 05/19/2024 Citalopram Hydrobromide 10 MG Oral Tablet (CeleXA)Indication [...] for Cough. 120 mL 05/15/19 25 Active Azelastine HCl 0.1 % Nasal Solution (Astelin) Administer 2 Sprays into nostril in the morning and 2 Sprays before bedtime. 90 mL 3 05/20/19 25 Active Azelastine HCl 0.1 % Nasal Solution (Astelin) ADMINISTER TWO SPRAYS INto both nostrils in THE MORNING AND TWO SPRAYS BEFORE BEDTIME 30 mL 2 5 12:05 PM EDT 05/09/19 25 025 Discontin ued(Refil l) documented as [...] leg, left, subsequent encounter 09/2021 Overview (12/05/2021): [facility] ER ulstrasound shows [...] Assessment & Plan (07/10/2021 12:27 PM EDT): [facility] Call: I would have her [...] and amiodarone. On warfarin being managed by [facility] pharmacy. History of TIA (transient ischemic [...] PM EST): Symptoms well controlled on omeprazole manager intermediate current use of anticoagulant therapy 0 [...] IM/IV Chest Xray Additional Comments: Followed by fresh meat grader - Dr. Rashel Sales [facility] Assessment & Plan (12/07/2022 2:00 [...] 40mg IM/IV CBC Chest Xray Followed by fresh meat grader - Dr. Rashel Sales [facility] Complicated UTI (urinary tract infection) [...] (07/12/2011): Per CKD protocol #1 [employer] Other*[id number] 06/02/2010 04/18/2011 Overview (06/02/2010): PROJECT: #[id number], SPONSOR: Aileen, PI: Adolfo De Jesus MD [...] can be closed. CONTACT: Roberto Carlos Huertas, Health Services Coordinator Type 2 diabetes mellitus wit h [...] CG/0.3 mL, 12 YRS AND ABOVE, IM ([employer]) 12/03/2022 COVID-19, mRNA, LNP-s, PF, B ooster, [...] Reading Time Taken Comments Blood Pressure 110/60 05/19/2024 1:33 PM EDT Pulse 82 05/19/2024 1:33 PM EDT Temperature 37 °C (98.6 °F) 05/19/2024 1:33 PM EDT Respiratory Rate 16 05/19/2024 1:33 PM EDT Oxygen Saturation - - Inhaled Oxygen Concentration - - Weight 61.8 kg (136 lb 4.8 oz) 05/19/2024 1:33 P M EDT Height - - Body Mass Index 26.62 03/26/2024 1:44 PM EST documented in this [...] * Patient Instructions* Macario Pathak MD - 05/19/2024 1:18 PM EDT Pollen Avoidance Measures: Keep windows, doors closed; use air conditioning; dry clothes in vented dryer, not outside on clothesline; shower/bathe and change clothes right after outdoor activity; avoid outdoor activity during high pollen counts; use HEPA type air filtration system. documented in this encounter Progress Notes * Macario Pathak MD - 05/19/2024 1:36 PM EDT REASON FOR VISIT: Chief Complaint Patient presents with Allergy Return SUBJECTIVE: Abdi is evaluated in follow up for her chronic cough and mixed type rhinitis. Today she is accompanied by her son. Overall Abdi has been doing fairly well. She had a fairly unremarkable fall and winter season up until early April. Then in early April, he started develop a cough and eventually hadto go to the Emergency Department. She was diagnosed and was treated with oral prednisone for 5 days. This did improve the majority of her symptoms but the cough lingered on for a total of 4 weeks. The cough has now resolved overall. She did have family contacts who are also sick at the same time. Otherwise her postnasal drip has been under good control recently. As you may recall, she is on Astelin 2 sprays each nostril twice daily. There was no evidence of any nasal congestion, rhinorrhea, nor excessive sneezing. In the past she has been tested and this did show allergic sensitizations to grass pollen only. However she also notes that strong odors, perfumes, scented products, smoke, and other respiratory irritants tend to be a trigger for her. She denies any sinus infections or recent ear infections. There have been no recent nosebleeds. She does have a history of nosebleeds the improve with humidified oxygen. However if he gets too humid, this will cause more drainage. She is continuing to follow up with her fresh meat grader who is treating her with duo nebs [...] She will be discussing this with her fresh meat grader in the near future. Patient Active Problem List Diagnosis Rheumatic heart disease senior living current use of anticoagulant therapy S/P mitral valve replacement Gastroesophageal reflux disease with esophagitis without hemorrhage Generalized osteoarthritis Hypothyroidism, postablative Atherosclerosis of pe[place] coronary artery of pe[place] heart without angina pectoris Dyslipidemia, goal LDL [...] tricuspid valve repair Hypothyroidism Hyperparathyroidism (HCC) Past Medical History: Diagnosis Date Acute on chronic diastolic CHF (congestive heart failure) (HCC) 07/18/2021 [facility] Anticoagulation management encounter 08/06/2001 INR 3-3.5 Anxiety attack 06/23/2021 Evaluated [facility] ER Atrial fibrillation (HCC) Bronchitis 02/18/2022 got sick on 9 days En cruise Coronary atherosclerosis of [place] coronary artery Cough variant asthma 01/16/2021 COVID-19 10/14/2020 Cystitis 12/12/2021 [place] Klebsiella and E coli Diverticulosis of colon (without mention of hemorrhage) 07/16/2013 sigmoid & descending colon DM type 2, goal A1c below 7 diet controlled Dyslipidemia, goal LDL below 70 09/24/2013 Encounter for hepatitis C screening test for low risk patient 03/28/2021 negative Esophageal reflux 12/03/2008 min gastric inflammation and mod active chronic esophageal inflammation-repeat EGD in 2 yrs Facial paresthesia 05/21/2018 [facility] possibly stress Fracture of left tibial tuberosity 12/07/2021 [place] knee replaced GENERAL OSTEOARTHROSIS 01/31/2010 Generalized anxiety disorder 06/26/2021 citalopram started Hemarthrosis involving knee joint Hematoma of left lower leg 11/25/2021 [facility] ER ulstrasound shows hematoma calf, INR 4.2, hgb 9.9 Hyperlipidemia LDL goal < 100 12/23/2013 Hypertensive heart and kidney disease with chronic diastolic congestive heart failure and stage 3b chronic kidney disease (HCC) 04/26/2021 Hypothyroidism, postablative 09/24/2013 Intramuscular hematoma 08/02/2021 left leg, [facility] Kidney disease, chronic, stage III (GFR 30-59 ml/min) ([facility]) 07/09/2011 Per CKD protocol #1 LONG-TERM USE OF ANTICOAGULANTS 05/10/2004 MEDICATION USE AGREEMENT 08/29/2017 Migraine with aura, intractable Old myocardial infarct 01/02/2001 Other abnormal glucose 03/13/2005 Postural dizziness with presyncope 12/05/2017 [facility] also burned her arm. GFR 17 Protein calorie malnutrition ([facility]) Restless legs syndrome 12/06/2016 RHEUMATIC HEART DISEASE 03/05/2002 Right knee DJD S/P mitral valve replacement 1993 mechanical Shingles 02/13/2014 left thigh Syncope 01/13/2021 [facility] VICKY and dehydration Tachy-sammi syndrome ([facility]) 02/14/2018 Tendonitis, Achilles, left 02/18/2022 walked a lot on a cruise TIA (transient ischemic attack) 12/23/2013 embolic Past Surgical History: Procedure Laterality Date ARTHROPLASTY KNEE TOTAL Left 09/23/2018 [facility] had post op hemarthrosis required transfusions Dr Cormier ARTHROPLASTY KNEE TOTAL Right 01/13/2019 [facility] CATHETERIZE LEFT HEART THRU SKIN [address] ANGIOGRAPHY HEAD W/CONTRAST/NONCONTRAST N/A 01/13/2021 arteries patent COLONOSCOPY N/A 02/24/2020 internal nemorrhoids, sigmoid diverticulosis, repeat 10 years COLONOSCOPY, DIAGNOSTIC (RECTUM) 07/16/2013 diverticulosis, poor prep, repeat 3 yrs/COLONOSCOPY FLEXIBLE PROXIMAL DIAGNOSTIC performed by Louie Childress MD at ENDOSCOPY [facility] COLONOSCOPY, DIAGNOSTIC (RECTUM) 02/24/2020 diverticulosis, repeat 10 yrs / COLONOSCOPY FLEXIBLE PROXIMAL DIAGNOSTIC performed by Louie Childress MD at ENDOSCOPY [facility] CT HEAD/BRAIN WO CONTRAST N/A 01/13/2021 no intracranial abnormalities, parietal scalp effusion from fall DISTAL TIBIA FX W/FIXATION OF TIBIA, OPEN Left 12/13/2021 OPEN TREATMENT OF PILON FRACTURE TIBIA ONLY performed by Moris Jimenez DO at OR [facility] DISTAL TIBIA FX W/FIXATION OF TIBIA, OPEN Left 12/11/2021 OPEN TREATMENT OF PILON FRACTURE TIBIA ONLY performed by Moris Jimenez DO at OR [facility] EEG 05/20/2018 normal EGD, FLEXIBLE, DIAGNOSTIC N/A 02/24/2020 hiatal hernia, normal esophagus and duodenum, inflammation gastric antrum EGD, FLEXIBLE, DIAGNOSTIC 02/24/2020 gastritis, hiatal hernia / ESOPHAGOGASTRODUODENOSCOPY (EGD), FLEXIBLE, TRANSORAL, DIAGNOSTIC performed by Louie Childress MD at ENDOSCOPY [facility] EGD, FLEXIBLE, DIAGNOSTIC 07/24/2021 normal / INPT [facility] EGD, FLEXIBLE, INSERT WIRE, PASS [...] by Silverio Arevalo MD at [facility] REMOVAL OF APPENDIX 1965 REMOVE GALLBLADDER 1987 [...] ulcers as needed 50 mL 0 Nystatin [id number] UNIT/ML Mouth/Throat Suspension Swish and swallow 5 [...] of breath or wheezing 1080 mL 0 Azelastine HCl 0.1 % Nasal Solution (Astelin) ADMINISTER TWO SPRAYS INto both nostrils in THE MORNING AND TWO SPRAYS BEFORE BEDTIME 30 mL 2 Metoprolol Succinate ER 25 MG Oral Tablet [...] as needed for Cough. 30 Capsule 1 guaiFENesin-Codeine 100-10 MG/5ML Oral Solution (Robitussin AC) Take 5 mL by mouth 3 times a day asneeded for Cough. 120 mL 0 No current facility-administered medications for this visit. 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 BP 110/60 | Pulse 82 | Temp 37 °C (98.6 °F) (Tympanic) | Resp 16 | Wt 61.8 kg (136 lb 4.8 oz) | BMI 26.62 kg/m² | BSA 1.62 m² PHYSICAL EXAM: GENERAL: No acute distress. No [...] No evidence atopic dermatitis; no urticaria or angioedema; Normal skin quality; OBJECTIVE DATA: Review of a chest x-ray [facility] 07/18/21 revealed cardiomegaly with pulmonary edema, small to moderate right pleural effusion with right basilar consolidation. Review of a chest CT [facility] 07/18/21 revealed no evidence for [...] kU/L <0.20 Pigweed IgE <0.35 kU/L <0.20 [place] IgE <0.35 kU/L <0.20 Elm IgE <0.35 [...] improve her cough and reduce postnasal drip. She is open to trying a normal saline sinus rinse. In the past she has tried a Neti pot but the technique was too difficult for her. Hence we will have her try a NeilMed sinus rinse. She is to use distilled water with this. We will avoid intranasal steroid sprays as [...] a contributing factor for her chronic cough. The patient or her family members are welcome to contact us should there be any worsening symptoms overall. Thank you very much for allowing myself to participate in the care of your patient. Please do not hesitate to contact our office should you have any questions or concerns. Macario Pathak MD Allergy/Immunology I spent a total of 30-39 minutes (exact time 34 mins) on the date of service in preparation, delivery, and documentation of the care provided to Abdi Bowling excluding any time spent in the performance of separately billed services or time spent by another provider/QHP. (This note was completed using the dictation program Fluency Direct. As such, there may be misspellings, word substitutions, or other variations that should not change the essence of the clinical content of this encounter note.If there is need for further clarification, please direct questions to the provider listed above.) documented in this encounter Nursing Notes * Dayan Santiago LPN - 05/19/2024 1:32 PM EDT The pt has been properly identified by confirmation of name and date of . Pt presents for allergy return. Pt had a cough x1 month but has gone away. Pt was in hospital for amonth with chest pain and neck pain. documented in this encounter Plan of Treatment Upcoming Encounters Date Type Department Care Team (Late st Contact Info) Description 05/20/2024 11:20 AM EDT Office Visit Family Medicine [address] [place] [phone] Shara Ray MD [address] [place] [address] [place] [address] 05/21/2024 6:00 AM EDT [facility] Clinical Pharmacy Services, Denia Yee [address] [place] [address] [place] [phone] [address] [place] [address] 05/25/2024 10:40 AM EDT Office Visit Gastroenterology, [place] [address] [place] [address] Hakan Berg PA-C [address] [place] [address] 06/11/2024 5:00 PM EDT Home Visit [facility], [facility] [address] [place] [address] Valentina Laws RN [address] [place] [address] 06/23/2024 2:00 PM EDT Office Visit Hematology/Oncology [facility] [place] [address] [facility] [phone] Bouchra Del Cid CRNP [address] [facility] [place] [address] 06/24/2024 1:40 PM EDT Office Visit Family Medicine [address] [place] [phone] Shara Ray MD [address] [place] [address] [place] [address] 07/14/2024 3:00 PM EDT Cardiac Studies Cardiac Studies, [facility] [address] [place] [phone] 07/15/2024 2:00 PM EDT Office Visit Cardiology, [facility] [address] [place] [phone] Maria Ines Bowers CRNP [address] [place] [address] 08/20/2024 3:00 PM EDT Office Visit Nephrology [address] [place] [address] Aliyah Lacey MD [address] [facility] [place] [address] 12/09/2024 10:00 AM EDT Office Visit Cardiology, [facility] [address] [place] [phone] Hadley Molina MD [address] [place] [address] 01/08/2025 2:00 PM EST Office Visit Family Medicine [address] [place] [phone] Shara Ray MD [address] [place] [address] [place] [address] 03/01/2025 2:40 PM EST Office Visit Nephrology [address] [place] [address] Aliyah Lacey MD [address] [facility] [place] [address] 05/19/2025 2:00 PM EDT Office Visit Allergy/Immunology [facility] [place] [address] [facility] [address] [place] [address] Rae Ramirez PA-C [address] [facility] [place] [address] Scheduled Procedures Name Priority Associated Diagnoses Date/Ti [...] Additional history exists CKD PHOS USE SMARTSET 53651 03/23/20250 04/2024, 03/22/2024, 03/21/2024, Additional history exists CKD HGB USE SMARTSET 05864 03/25/202503/25, 03/23/2024, 03/22/2024, Additional history exists Diabetic [...] this encounter Medical Devices Implanted Type Area Geek Squad Agent Device Identifier Shelf Expiration Date Model / Serial / Lot [place] Suture [employer] - Sn/A - [id number] Implanted:Qty: 2 on 12/13/2021 by Moris Jimenez, at OR [facility] Left: Leg Lower [employer] 07/18/2024 [id number] / N/A / [id number] [employer] Bbtrauma Foam Pack - [id number] - [id number] Implanted:Qty: 1 on 12/13/2021 by Moris Jimenez DO at OR [facility] Left: Leg Lower MICHA : TRAUMA 01/15/2022 [id number] / [id number] / [id number] System Delivery Triclip Xtw - [id number] Implanted:Qty: 1 on 03/18/2024 at [facility] Kizoom 08/11/2025 [id number] / / documented as of this [...] COPD, group B, by GOLD 2017 classification ([facility]) Gastroesophageal reflux disease with esophagitis without hemorrhage Hypothyroidism, postablative Other postablative hypothyroidism Dyslipidemia, goal LDL below 100 Other and unspecified hyperlipidemia Restless legs syndrome Restless legs syndrome (RLS) Iron deficiency anemia, unspecified iron deficiency anemia type Hypertensive heart and kidney disease with chronic diastolic congestive heart failure and stage 3b chronic kidney disease (HCC)- Primary COPD, group B, by GOLD 2017 classification ([facility]) Major depressive disorder, recurrent, moderate (HCC) Major depressive disorder, recurrent episode, moderate Other persistent atrial fibrillation (HCC) Generalized anxiety disorder Atherosclerosis of pe[place] coronary artery without angina pectoris, unspecified whether peoria or transplanted heart Hypothyroidism, postablative Other postablative hypothyroidism Dyslipidemia, goal LDL below 100 Other and unspecified hyperlipidemia Chronic cough- Primary Cough Seasonal allergic rhinitis due to pollen Mixed rhinitis Chronic rhinitis PND (post-nasal drip) Postnasal drip Cough variant asthma documented in this encounter Advance Directives * [...] Advance Directives occurred with: Patient Care Teams Cardiovascular Surgeon Relationship Specialty Start Date End Date Shara Ray MD [address] [place] [address] [place] [phone] PCP - General Family Medicine 12/30/23 documented as of this encounter
--- OUTSIDE RECORDS SUMMARY | 2024-06-10 06:42 | External Medical Summary | Summary of Care ---
Author Name Unknown Organization [facility] Address [address] [place] [address] Phone [phone] Care Team Providers Care Senior Informatica Etl Developer Name Role Phone Shara Ray MD Primary Care Provide r Reason for Visit * Reason Onset Date Comments [facility]: Maintenance 05/15/2024 Encounter Details Date Type Department Care Team (Late st Contact Info) Description 05/15/2024 Telephone [facility], [facility] [address] [facility] [place] [address] Karoline Tinoco, PROPERTY HANDLER [address] [place] [address] [facility]: Maintenance Allergies Active Allergy [...] as of this encounter (statuses as of 05/15/2024) Medications acetaminophen (TYLENOL) 500 MG Tablet Take [...] needed 50 mL 12/07/19 23 Active Nystatin 929208 UNIT/ML Mouth/Throat SuspensionIndicati ons:Thrush Swish and swallow [...] as of this encounter (statuses as of 05/15/2024) Active Problems Problem Noted Date Diagnosed Date S/P tricuspid valve repair 04/09/2024 Hypothyroidism 04/09/2024 Hyperparathyroidism 04/09/2024 Moderate tricuspid regurgitation 03/23/2024 Esophageal dysmotility 03/23/2024 Chronic right-sided heart failure 03/20/2024 Atherosclerosis of [place] co ronary artery of [place] heart without angina pectoris 04/03/2023 Major depressive [...] leg, left, subsequent encounter 09/2021 Overview (12/05/2021): [facility] ER ulstrasound shows hematoma [...] & Plan (07/10/2021 12:27 PM EDT): [facility] Call: I would have her [...] as of this encounter (statuses as of 05/15/2024) Resolved Problems Problem Noted Date Diagnosed Date [...] IM/IV Chest Xray Additional Comments: Followed by photographic editor - Dr. Rashel Sales [facility] Assessment & Plan (12/07/2022 2:00 [...] 40mg IM/IV CBC Chest Xray Followed by photographic editor - Dr. Rashel Sales [facility] [...] (07/12/2011): Per CKD protocol #1 [employer] Other*[id number] 06/02/2010 04/18/2011 Overview (06/02/2010): PROJECT: #[id number], SPONSOR: Aileen, PI: Adolfo De Jesus MD [...] be closed. CONTACT: Roberto Carlos Huertas, Security Incident Handler Type 2 diabetes mellitus wit h hemoglobin A1c goal of less than 7.0% 04/24/2010 08/29/2018 Overview (06/14/2015): ICD-10 update of inactive term ACTIVE CASE MANAGEMENT Kassie Anthony RN [phone] 05/10/19 10 12/05/2009 ADVANCE DIRECTIVE INFORMATION 05/09/2009 [...] as of this encounter (statuses as of 05/15/2024) Immunizations Name Administration Dates Next Due COVID-19 mRNA, LNP-s, No Pre serve, 2-Dose Series (Moderna) 04/19/2020,03/22/2020 COVID-19, MRNA-LNP, PF, 30 M CG/0.3 mL, 12 YRS AND ABOVE, IM ([facility] 12/03/2022 COVID-19, mRNA, LNP-s, PF, B [...] encounter Miscellaneous Notes * Telephone Encounter - Karoline Tinoco LPN - 05/15/2024 9:22 AM EDT Patient d/c from [facility] on 05/13 TT to [facility] resident inspector to schedule TIN tomorrow with Valentina Laws documented in this encounter Plan of Treatment Upcoming Encounters Date Type Department Care Team (Late st Contact Info) Description 05/15/2024 6:00 PM EDT Anticoagulation [facility] Clinical Pharmacy Services, Denia Yee [address] [place] [address] [place] [address] [place] [address] 05/16/2024 10:30 AM EDT Home Visit [facility], [facility] [address] [place] [address] [facility], Nurse [facility] [address] [place] [address] 05/19/2024 1:30 PM EDT Office Visit Allergy/Immunology [facility] [address] [address] Macario Pathak MD 200 [facility] [place] [address] 05/20/2024 11:20 AM EDT Office Visit Family Medicine [address] [phone] Shara Ray MD [address] [place] [address] [place] [address] 06/11/2024 5:00 PM EDT Home Visit [facility]inger at [facility] [address] [place] [address] Valentina Laws RN [address] [place] [address] 06/23/2024 2:00 PM EDT Office Visit Hematology/Oncology [facility] [phone] Bouchra Del Cid CRNP [address] [place] [address] [place] [address] 06/24/2024 1:40 PM EDT Office Visit Family [address] [place] [address] Shara Ray MD [address] [place] [address] [place] [address] 07/14/2024 3:00 PM EDT Cardiac Studies Cardiac Studies, [facility] [address] [place] [phone] 07/15/2024 2:00 PM EDT Office Visit Cardiology, [facility] [address] [place] [phone] Maria Ines Bowers CRNP [address] [place] [address] 08/20/2024 3:00 PM EDT Office Visit Nephrology [address] [place] [address] Aliyah Lacey MD [address] [place] [address] 12/09/2024 10:00 AM EDT Office Visit Cardiology, [facility] [address] [place] [phone] Hadley Molina MD [address] [place] [address] 01/08/2025 2:00 PM EST Office Visit Family Medicine [address] [place] [address] Shara Ray MD [address] [place] [address] [place] [address] 03/01/2025 2:40 PM EST Office Visit Nephrology [address] [place] [address] Aliyah Lacey MD [address] [place] [address] Scheduled Procedures Name Priority Associated Diagnoses Date/Ti [...] Additional history exists CKD PHOS USE SMARTSET 73357 03/23/2025 02/0 04/2024, 03/22/2024, 03/21/2024, Additional history exists CKD HGB USE SMARTSET 13217 03/25/202503/25, 03/23/2024, 03/22/2024, Additional history exists Diabetic Eye Exam 05/15/2025 05/14/2024, , 12/27/2020, Additional history exists DTap/Tdap [...] this encounter Medical Devices Implanted Type Area Retort Condenser Attendant Device Identifier Shelf Expiration Date Model / Serial / Lot [place] Suture Biocomposite - Sn/A - [id number] Implanted:Qty: 2 on 12/13/2021 by Moris Jimenez, DO at OR [facility] Left: Leg Lower [employer] 07/18/2024 [id number] / N/A / [id number] Vitoss Bbtrauma Foam Pack - [id number] - [id number] Implanted:Qty: 1 on 12/13/2021 by Moris Jimenez, DO at OR [facility] Left: Leg Lower MICHA : TRAUMA 01/15/2022 / [id number] / [id number] System Delivery Triclip Xtw - [id number] Implanted:Qty: 1 on 03/18/2024 at [facility] [employer] 08/11/2025 [id number] / / documented as of this [...] Directives occurred with: Patient Care Teams Senior Informatica Etl Developer Relationship Specialty Start Date End Date Shara Ray MD [address] [place] [address] [place] [phone] PCP - General Family Medicine 12/30/23 documented as of this encounter
--- OUTSIDE RECORDS SUMMARY | 2024-06-10 06:42 | External Medical Summary | Summary of Care ---
Author Name Unknown Organization [facility] Address [address] [place] [facility] [place] [address] Phone [phone] Care Team Providers Care Photolithographer Name Role Phone Shara Ray MD Primary Care Provide r Encounter Details Date Type Department Care Team (Late st Contact Info) Description 05/15/2024 Orders Only Family Medicine [address] [place] [phone] Shara Ray MD [address] [place] [address] [place] [address] Allergies Active Allergy [...] needed 50 mL 12/07/19 23 Active Nystatin 921262 UNIT/ML Mouth/Throat SuspensionIndicati ons:Thrush Swish and swallow [...] of insulin ([facility]) Use as directed. 100 Each 11 07/25/19 Active Glucose Blood In Vitro StripIndications:T ype 2 diabetes mellitus with stage 3b chronic kidney disease, without long-term current use of insulin ([facility]) Use as directed. 100 Strip 11 07/25/19 [...] Chronic right-sided heart failure 03/20/2024 Atherosclerosis of [place] co ronary artery of [place] heart without angina pectoris 04/03/2023 Major depressive [...] left, subsequent encounter 09/2021 Overview (12/05/2021): [facility] ER ulstrasound shows hematoma calf, [...] in the Comments) Remote Patient Monitoring Vendor: [facility] Device(s): Connected Scale Self [...] (07/10/2021 12:27 PM EDT): [facility] Call: I would have her do the [...] and amiodarone. On warfarin being managed by [facility] pharmacy. History of TIA (transient ischemic attack) [...] PM EST): Symptoms well controlled on omeprazole nursing home [...] IM/IV Chest Xray Additional Comments: Followed by greaser operator - Dr. Rashel Sales [facility] Assessment & Plan (12/07/2022 2:00 PM [...] 40mg IM/IV CBC Chest Xray Followed by greaser operator - Dr. Rashel Sales [facility] Complicated UTI (urinary tract infection) [...] (07/12/2011): Per CKD protocol #1 [employer] Other*[id number] 06/02/2010 04/18/2011 Overview (06/02/2010): PROJECT: #[id number], SPONSOR: Aileen, PI: Adolfo De Jesus MD [...] can be closed. CONTACT: Roberto Carlos Huertas, Guillotine Operator Type 2 diabetes mellitus wit h [...] CG/0.3 mL, 12 YRS AND ABOVE, IM ([facility]) 12/03/2022 COVID-19, mRNA, LNP-s, PF, B [...] Anticoagulation [facility], Denia Yee [address] [place] [address] [place] [address] [place] [address] 05/18/2024 8:00 AM EDT Home Visit Dilma at [address] [place] [address] Valentina Laws RN [address] [facility] [place] [address] 05/19/2024 1:30 PM EDT Office Visit Allergy/Immunology [facility] [address] [facility] [place] [address] Macario Pathak MD [address] [facility] [place] [address] 05/20/2024 11:20 AM EDT Office Visit Family Medicine [address] [place] [phone] Shara Ray MD [address] [place] [address] [place] [address] 06/11/2024 5:00 PM EDT [facility] Visit [facility] at [address] [place] [address] Valentina Laws RN [address] [place] [address] 06/23/2024 2:00 PM EDT Office Visit Hematology/Oncology [facility] [place] [address] [facility] [place] [phone] Bouchra Del Cid CRNP [address] [facility] [place] [address] 06/24/2024 1:40 PM EDT Office Visit Family Medicine [address] [place] [phone] Shara Ray MD [address] [place] [address] [place] [address] 07/14/2024 3:00 PM EDT Cardiac Studies Cardiac Studies, [facility] [address] [facility] [place] [phone] 07/15/2024 2:00 PM EDT Office Visit Cardiology, [facility] [address] [place] [phone] Maria Ines Bowers CRNP [address] [place] [address] 08/20/2024 3:00 PM EDT Office Visit Nephrology [address] [place] [address] Aliyah Lacey MD [address] [facility] [place] [address] 12/09/2024 10:00 AM EDT Office Visit Cardiology, [facility] [address] [place] [phone] Hadley Molina MD [address] [place] [address] 01/08/2025 2:00 PM EST Office Visit Family Medicine [address] [place] [address] Shara Ray MD [address] [place] [address] [place] [address] 03/01/2025 2:40 PM EST Office Visit Nephrology [address] [place] [address] Aliyah Lacey MD [address] [facility] [address] Scheduled Procedures Name Priority Associated Diagnoses Date/Ti [...] Additional history exists CKD PHOS USE SMARTSET 61438 03/23/2025 02/0 04/2024, 03/22/2024, 03/21/2024, Additional history exists CKD HGB USE SMARTSET 15266 03/25/202503/25, 03/23/2024, 03/22/2024, Additional history exists Diabetic [...] this encounter Medical Devices Implanted Type Area Drum Operator Device Identifier Shelf Expiration Date Model / Serial / Lot [place] Suture Biocomposite - Sn/A - [id number] Implanted:Qty: 2 on 12/13/2021 by Moris Jimenez, DO at OR [facility] Left: Leg Lower [employer] 07/18/2024 AR-[id number] / N/A / [id number] Vitoss Bbtrauma Foam Pack - [id number] - [id number] Implanted:Qty: 1 on 12/13/2021 by Moris Jimenez, at OR [facility] Left: Leg Lower MICHA : TRAUMA 01/15/2022 / [id number] / [id number] System Delivery Triclip Xtw - [id number] Implanted:Qty: 1 on 03/18/2024 at [facility] [employer] 08/11/2025 [id number] / / documented as of this encounter Procedures Procedure Name Priority Date/Time Associated Diagnosis Comments DIABETIC EYE EXAM Routine 05/14/2024 documented in this encounter Results * DIABETIC EYE EXAM (05/14/2024) 05/14/2024 us History Per Patient OTHER Final Result OUTSIDE LAB (SEE SCANNED REPORT) documented in [...] Advance Directives occurred with: Patient Care Teams Photolithographer Relationship Specialty Start Date End Date Shara Ray MD [address] [place] [address] [place] [address] PCP - General Family Medicine 12/30/23 documented as of this encounter
--- OUTSIDE RECORDS SUMMARY | 2024-06-10 06:42 | External Medical Summary ---
Author Name Unknown Address Unknown Organization K01:[facility] - [address] [place] [address] Laboratory Report Ordering Provider Test Date Status SONIA PANTOJA 05/15/2024 11:05:00 Final Standing order for pt/inr. < br/>Please draw pt/inr every 1 to 4 weeks as requested.
Results to [facility]

Warfarin Therapy
INR: 2.0-3.0 conventional anticoagulation
INR: 2.5-3.5 high intensity anticoagulation Observation Date Value Abnormality Reference (Units ) Status PT 05/15/2024 11:05:00 25.3 Above high normal 11 .6-15.2 (seconds) Final INR 05/15/2024 11:05:00 2.3 Above high normal 0. 8-1.2 Final Performing Location [facility] - [address] [place] [address]
--- OUTSIDE RECORDS SUMMARY | 2024-06-10 06:42 | External Medical Summary | Summary of Care ---
Author Name Unknown Organization [facility] Address [address] [facility] [place] [address] Phone [phone] Care Team Providers Care Inventory Control Specialist Name Role Phone Shara Ray MD Primary Care Provide r Reason for Visit * Reason Comments Dosage Adjustment Via Phone (anticoag Cl inic) Encounter Details Date Type Department Care Team (Late st Contact Info) Description 05/15/2024 6:00 PM EDT Anticoagulation [facility], [address] [place] [address] [place] [address] long-term current use of anticoagulant therapy*; History of [...] needed 50 mL 12/07/19 23 Active Nystatin 410456 UNIT/ML Mouth/Throat SuspensionIndicati ons:Thrush Swish and swallow [...] disease, without long-term current use of insulin ([facility]) Check your glucose daily as needed 1 Kit 07/25/19 Active LancetsIndications :Type 2 diabetes mellitus with stage 3b chronic kidney disease, without long-term current use of insulin ([facility]) Use as directed. 100 Each 07/25/19 Active Glucose Blood In Vitro StripIndications:T ype 2 diabetes mellitus with stage 3b chronic kidney disease, without long-term current use of insulin ([facility]) Use as directed. 100 Strip [...] Chronic right-sided heart failure 03/20/2024 Atherosclerosis of [place] co ronary artery of [place] heart without angina pectoris 04/03/2023 Major depressive [...] leg, left, subsequent encounter 09/2021 Overview (12/05/2021): [facility] ER [...] or up the stairs") Medication Regimen: Beta Gailna Therapy: Metoprolol Tartrate VINCENT Inhibitor/ARB Therapy: No VINCENT/ARB/ARNI secondary to: allergy Diuretic therapy: Torsemide Aldactone SGLT2 Inhibitor: No Current SGLT2 (Describe in the Comments) Remote Patient Monitoring Vendor: [facility] Device(s): Connected Scale [...] & Plan (07/10/2021 12:27 PM EDT): [facility] Call: I would have her do [...] amiodarone. On warfarin being managed by [facility] pharmacy. History of TIA [...] Chest Xray Additional Comments: Followed by medical billing instructor - Dr. Rashel Sales [facility] Assessment & Plan (12/07/2022 2:00 PM EDT): [...] 40mg IM/IV CBC Chest Xray Followed by medical billing instructor - Dr. Rashel Sales [facility] Complicated UTI (urinary tract infection) 12/20/2021 [...] (07/12/2011): Per CKD protocol #1 ORBIT-AF Research Other*[id number] 06/02/2010 04/18/2011 Overview (06/02/2010): PROJECT: #[id number], SPONSOR: Aileen, PI: Adolfo De Jesus MD [...] can be closed. CONTACT: Roberto Carlos Huertas, Bobbin Handler Type 2 diabetes mellitus wit h [...] CG/0.3 mL, 12 YRS AND ABOVE, IM ([facility] 12/03/2022 COVID-19, mRNA, LNP-s, PF, B [...] 2:35 PM EDT Sexual Orientation Straight 07/05/2021 2 :35 PM EDT Occupation Industry Job Start Date [...] this encounter Progress Notes * Silvia Ware [facility] - 05/15/2024 3:28 PM EDT Medication Therapy Disease Management - Anticoagulation Patient: Abdi Bowling | : 1955 Subjective Contacts Contact Date/Time Type Contact Phone/Fax 05/15/2024 04:01 PM EDT Email SMS () [phone] Patient not accepting updates 05/15/2024 04:28 PM EDT Phone (Outgoing) Abdi Bowling (Self) [phone] (M) Patient-Reported Symptoms: Advised 5 mg today [...] Dosing Information: Description GML WedFri, prefers Wed ([facility], [facility], or [facility]) Please also send myG message Silvia Ware [facility] Clinical Pharmacist 05/15/2024, 3:28 PM * Brianna Zapata, mobile heavy equipment operator - 05/15/2024 3:20 PM EDT Results for INR still pending. Placed pt on Saturday morning's schedule for review. Please advise. Thank you, Brianna Zapata Header Up [facility] ([facility]) 05/15/2024, 3:20 PM documented in this encounter Plan of Treatment Upcoming Encounters Date Type Department Care Team (Late st Contact Info) Description 05/18/2024 6:00 AM EDT Anticoagulation [facility] Clinical Pharmacy Services, [address] [place] [address] [facility], [address] [place] [address] 05/18/2024 8:00 AM EDT [facility] 132 [facility] [place] [address] Valentina Laws, RN 132 [facility] [place] [address] 05/19/2024 1:30 PM EDT Office Visit Allergy/Immunology [facility] [place] [address] [place] [address] Macario Pathak MD [address] [place] [address] 05/20/2024 11:20 AM EDT Office Visit Family Medicine [address] [place] [address] Shara Ray MD [address] [place] [address] [place] [address] 06/11/2024 5:00 PM EDT [facility] [place], [facility] [address] [place] [address] Valentina Laws RN [address] [place] [address] 06/23/2024 2:00 PM EDT Office Visit Hematology/Oncology [employer] 200 [facility] [place] [phone] Bouchra Del Cid CRNP 400 [facility] [place] [address] 06/24/2024 1:40 PM EDT Office Visit Family Medicine [address] [place] [phone] Shara Ray MD [address] [place] [address] [place] [address] 07/14/2024 3:00 PM EDT Card[facility] Studies [facility] [address] [place] [phone] 07/15/2024 2:00 PM EDT Office Visit Cardiology [facility] [address] [place] [phone] Maria Ines Bowers CRNP [address] [place] [address] 08/20/2024 3:00 PM EDT Office Visit Nephrology [address] [place] [address] Aliyah Lacey MD 200 [facility] [place] [address] 12/09/2024 10:00 AM EDT Office Visit Cardiology, [facility] [address] [place] [phone] Hadley Molina MD [address] [place] [address] 01/08/2025 2:00 PM EST Office Visit Family Medicine [address] [place] [address] Shara Ray MD [address] [place] [address] [place] [address] 03/01/2025 2:40 PM EST Office Visit Nephrology [address] [place] [address] Aliyah Lacey MD [address] [facility] [address] Scheduled Procedures Name Priority Associated Diagnoses Date/Ti [...] Additional history exists CKD PHOS USE SMARTSET 22772 03/23/2025 02/0 04/2024, 03/22/2024, 03/21/2024, Additional history exists CKD HGB USE SMARTSET 39526 03/25/202503/25, 03/23/2024, 03/22/2024, Additional history exists Diabetic [...] this encounter Medical Devices Implanted Type Area Grapple Crew Leader Device Identifier Shelf Expiration Date Model / Serial / Lot [place] Suture Biocomposite - Sn/A - [id number] Implanted:Qty: 2 on 12/13/2021 by Moris Jimenez, DO at OR [facility] Left: Leg Lower [employer] 07/18/2024 [id number] / N/A / [id number] Vitoss Bbtrauma Foam Pack - [id number] - [id number] Implanted:Qty: 1 on 12/13/2021 by Moris Jimenez DO at OR [facility] Left: Leg Lower MICHA : TRAUMA 01/15/2022 [id number] / [id number] / [id number] System Delivery Triclip Xtw - [id number] Implanted:Qty: 1 on 03/18/[address] [facility] LendAmend 08/11/2025 [id number] / / documented as of this encounter Visit Diagnoses Diagnosis Gastroesophageal reflux disease with esophagitis without hemorrhage- Primary Type 2 diabetes mellitus with stage 3b chronic kidney disease, without long-term current use of insulin ([facility]) Permanent atrial fibrillation ([facility]) Atrial fibrillation Restless legs syndrome Restless legs syndrome (RLS) S/P mitral valve replacement Heart valve replaced by other means Hypertensive heart and kidney disease with chronic diastolic congestive heart failure and stage 3b chronic kidney disease ([facility]) Recurrent falls Personal history of fall Hypertensive heart and kidney disease with chronic diastolic congestive heart failure and stage 3b chronic kidney disease (HCC)- Primary Intramuscular hematoma- Primary Contusion of unspecified site Permanent atrial fibrillation ([facility]) Atrial fibrillation Chronic obstructive pulmonary disease, unspecified COPD type ([facility]) Old myocardial infarct Old myocardial infarction Type 2 diabetes mellitus with stage 3b chronic kidney disease, without long-term current use of insulin ([facility]) Hypothyroidism, postablative Other postablative hypothyroidism Generalized anxiety disorder Permanent atrial fibrillation ([facility])- Primary Atrial fibrillation Type 2 diabetes mellitus with stage 3b chronic kidney disease, without long-term current use of insulin ([facility]) Hypertensive heart and kidney disease with chronic diastolic congestive heart failure and stage 3b chronic kidney disease (HCC) COPD, group B, by GOLD 2017 classification ([facility]) Gastroesophageal reflux disease with esophagitis [...] COPD, group B, by GOLD 2017 classification ([facility]) Major depressive disorder, recurrent, moderate ([facility]) Major depressive disorder, recurrent episode, moderate Other persistent atrial fibrillation (HCC) Generalized anxiety disorder Atherosclerosis of belkofski coronary artery without angina pectoris, unspecified whether belkofski or transplanted heart Hypothyroidism, postablative Other postablative hypothyroidism Dyslipidemia, goal LDL below 100 Other and unspecified hyperlipidemia intermediate frame tender current use of anticoagulant therapy- Primary History [...] Advance Directives occurred with: Patient Care Teams Inventory Control Specialist Relationship Specialty Start Date End Date Shara Ray MD [address] [place] [address] [place] [address] PCP - General Family Medicine 12/30/23 documented as of this encounter
--- OUTSIDE RECORDS SUMMARY | 2024-06-10 06:42 | External Medical Summary | Summary of Care ---
Author Name Unknown Organization [facility] Address [address] [place] [address] Phone [phone] Care Team Providers Care Prawn Trawler Hand Name Role Phone Shara Ray MD Primary Care Provide r Reason for Visit * Reason Onset Date Comments [facility]: Maintenance 05/15/2024 Encounter Details Date Type Department Care Team (Late st Contact Info) Description 05/15/2024 Telephone [facility], [place] [address] [place] [phone] Barb Rawls, MARTHA [address] [place], [place] [phone] [facility]: Maintenance Allergies Active Allergy [...] needed 50 mL 12/07/19 23 Active Nystatin 967997 UNIT/ML Mouth/Throat SuspensionIndicati ons:Thrush Swish and swallow [...] Chronic right-sided heart failure 03/20/2024 Atherosclerosis of [place] co ronary artery of [place] heart without angina pectoris 04/03/2023 Major depressive [...] left, subsequent encounter 09/2021 Overview (12/05/2021): [facility] ER ulstrasound shows hematoma [...] Assessment & Plan (07/10/2021 12:27 PM EDT): [facility] Call: I would have her do [...] and amiodarone. On warfarin being managed by [facility] pharmacy. History of TIA (transient ischemic [...] EST): Symptoms well controlled on omeprazole termite inspector [...] IM/IV Chest Xray Additional Comments: Followed by charge hand - Dr. Rashel Sales [facility] Assessment & Plan (12/07/2022 2:00 [...] 40mg IM/IV CBC Chest Xray Followed by charge hand - Dr. Rashel Sales [facility] Complicated UTI (urinary tract infection) [...] (07/12/2011): Per CKD protocol #1 ORBIT-AF Research Other*[id number] 06/02/2010 04/18/2011 Overview (06/02/2010): PROJECT: #[id number], SPONSOR: Aileen, PI: Adolfo De Jesus MD [...] can be closed. CONTACT: Roberto Carlos Huertas, President Trust Company Type 2 diabetes mellitus wit h hemoglobin A1c goal of less than 7.0% 04/24/2010 08/29/2018 Overview (06/14/2015): ICD-10 update of inactive term ACTIVE CASE MANAGEMENT Kassie Anthony RN [phone] 05/10/19 10 12/05/2009 ADVANCE DIRECTIVE INFORMATION [...] CG/0.3 mL, 12 YRS AND ABOVE, IM ([employer] [facility]) 12/03/2022 COVID-19, mRNA, [...] encounter Miscellaneous Notes * Telephone Encounter - Barb Rawls OSA - 05/15/2024 9:57 AM EDT Request to schedule TIN visit for pt on Sat 05/16. Called pt and LMOM. Told pt to call back if Sat visit does not work. Approved weekend visit by anita Hernandez. documented in this encounter Plan of Treatment Upcoming Encounters Date Type Department Care Team (Late st Contact Info) Description 05/15/2024 6:00 PM EDT [facility] Clinical Pharmacy Services, [address] [place] [address] [place] [address] 05/16/2024 10:30 AM EDT [facility], [facility] [address] [place] [address] [facility], Nurse [facility] [address] [place] [address] 05/19/2024 1:30 PM EDT Office Visit Allergy/Immunology [facility] [address] [place] [address] [address] Macario Pathak MD [address] [place] [address] 05/20/2024 11:20 AM EDT Office Visit Family Medicine [address] [phone] Shara Ray MD [address] [place] [address] [place] [address] 06/11/2024 5:00 PM EDT [facility] [address] [place] [address] Valentina Laws RN [address] [place] [address] 06/23/2024 2:00 PM EDT Office Visit [facility]ology[facility] [place] [address] [place] [phone] Bouchra Del Cid CRNP 400 [facility] [address] 06/24/2024 1:40 PM EDT Office Visit Family [address] [phone] Shara Ray MD [address] [place] [address] [place] [address] 07/14/2024 3:00 PM EDT Cardiac Studies [facility], [facility] [address] [place] [phone] 07/15/2024 2:00 PM EDT Office Visit Cardiology, [facility] [address] [place] [phone] Maria Ines Bowers CRNP [address] [place] [address] 08/20/2024 3:00 PM EDT Office Visit Nephrology [address] [place] [address] Aliyah Lacey MD [address] [place] [address] 12/09/2024 10:00 AM EDT Office Visit Cardiology, [facility] [address] [place] [phone] Hadley Molina MD [address] [place] [address] 01/08/2025 2:00 PM EST Office Visit Family Medicine [address] [place] [phone] Shara Ray MD [address] [place] [address] [place] [address] 03/01/2025 2:40 PM EST Office Visit Nephrology [address] [place] [address] Aliyah Lacey MD [address] [place], [place] [address] Scheduled Procedures Name Priority Associated Diagnoses Date/Ti [...] Additional history exists CKD PHOS USE SMARTSET 57852 03/23/2025 02/0 04/2024, 03/22/2024, 03/21/2024, Additional history exists CKD HGB USE SMARTSET 44943 03/25/202503/25, 03/23/2024, 03/22/2024, Additional history exists Diabetic [...] this encounter Medical Devices Implanted Type Area Corporate Communications Specialist Device Identifier Shelf Expiration Date Model / Serial / Lot [place] Suture Biocomposite - Sn/A - [id number] Implanted:Qty: 2 on 12/13/2021 by Moris Jimenez, DO at OR [facility] Left: Leg Lower [employer] 07/18/2024 AR-2324BCC / N/A / [id number] Vitoss Bbtrauma Foam Pack - [id number] - [id number] Implanted:Qty: 1 on 12/13/2021 by Moris Jimenez, DO at OR [facility] Left: Leg Lower MICHA : TRAUMA 01/15/2022 / [id number] / [id number] System Delivery Triclip Xtw - [id number] Implanted:Qty: 1 on 03/18/2024 at [facility] [email or web address] 08/11/2025 [id number] / / documented as of this [...] Advance Directives occurred with: Patient Care Teams Prawn Trawler Hand Relationship Specialty Start Date End Date Shara Ray MD [address] [place] [address] [place] [address] PCP - General Family Medicine 12/30/23 documented as of this encounter
--- OUTSIDE RECORDS SUMMARY | 2024-06-10 06:42 | External Medical Summary | Summary of Care ---
Author Name Unknown Organization [facility] Address [address] [place] [address] Phone [phone] Care Team Providers Care Culinary Manager Name Role Phone Shara Ray MD Primary Care Provide r Reason for Visit * Reason Onset Date Comments Appointment 05/15/2024 Encounter Details Date Type Department Care Team (Late st Contact Info) Description 05/15/2024 Telephone [facility] [place] [address] [place] [address] Krystal Wells, MARTHA [address] [place] [address] Appointment (/) Allergies Active Allergy Reactions Criticality [...] needed 50 mL 12/07/19 23 Active Nystatin 828054 UNIT/ML Mouth/Throat SuspensionIndicati ons:Thrush Swish and swallow [...] Chronic right-sided heart failure 03/20/2024 Atherosclerosis of [place] co ronary artery of [place] heart without angina pectoris 04/03/2023 Major depressive [...] left, subsequent encounter 09/2021 Overview (12/05/2021): [facility] ER ulstrasound shows hematoma calf, INR [...] & Plan (07/10/2021 12:27 PM EDT): [facility] Call: I would have her [...] amiodarone. On warfarin being managed by [facility] pharmacy. History of TIA (transient [...] PM EST): Symptoms well controlled on omeprazole roasterman current use of anticoagulant therapy 0 05/10/2004 [...] IM/IV Chest Xray Additional Comments: Followed by birth certificate clerk - Dr. Rashel Sales [facility] Assessment & Plan (12/07/2022 2:00 PM [...] 40mg IM/IV CBC Chest Xray Followed by birth certificate clerk - Dr. Rashel Sales [facility] Complicated UTI (urinary tract infection) 12/20/2021 [...] (07/12/2011): Per CKD protocol #1 ORBIT-AF Research Other*[id number] 06/02/2010 04/18/2011 Overview (06/02/2010): PROJECT: #[id number], SPONSOR: Aileen, PI: Adolfo De Jesus MD [...] can be closed. CONTACT: Roberto Carlos Huertas, Shackler Type 2 diabetes mellitus wit h hemoglobin [...] CG/0.3 mL, 12 YRS AND ABOVE, IM ([facility]) 12/03/2022 COVID-19, mRNA, LNP-s, PF, [...] encounter Miscellaneous Notes * Telephone Encounter - Krystal Wells OSA - 05/15/2024 12:34 PM EDT Incoming call from cousin who cancelled tomorrow's appt for weekend nurse and asked to see Aliyah next week. I found Saturday morning@8am and he was agreeable just said they wont be around Sat for the nurse weekend visit so I cx it and rs with RNCM Saturday instead documented in this encounter Plan of Treatment Upcoming Encounters Date Type Department Care Team (Late st Contact Info) Description 05/15/2024 6:00 PM EDT Anticoagulation Centralized Clinical Pharmacy Services, [address] [place] [address] [place] [address] care home current use of anticoagulant therapy*; History of TIA (transient ischemic attack); S/P mitral valve replacement 05/18/2024 6:00 AM EDT Anticoagulation [facility] Clinical Pharmacy Services, [address] [place] [address] [place] [address] 05/18/2024 8:00 AM EDT [facility] [place], [facility] [address] [place] [address] Valentina Laws, TANISHA 132 [facility] [place] [address] 05/19/2024 1:30 PM EDT Office Visit Allergy/Immunology [facility] [place] 200 [facility] [place] [address] Macario Pathak MD 200 [facility] [place] [address] 05/20/2024 11:20 AM EDT Office Visit Family [address] [place] [phone] Shara Ray MD [address] [place] [address] [place] [address] 06/11/2024 5:00 PM EDT [facility], [facility] 132 [facility] [place] [address] Valentina Laws RN 132 [place] [address] 06/23/2024 2:00 PM EDT Office Visit Hematology/Oncolog y [facility] 200 [facility] [place] [phone] Bouchra Del Cid CRNP [address] [place], [place] [address] [address] 06/24/2024 1:40 PM EDT Office Visit Family [address] [place] [phone] Shara Ray MD [address] [place] [address] [place] [address] 07/14/2024 3:00 PM EDT Cardiac Studies Cardiac Studies, [facility] [address] [place] [phone] 07/15/2024 2:00 PM EDT Office Visit Cardiology, [facility] [address] [place]arita [place], [place] [phone] Maria Ines Bowers CRNP [address] [place] [address] 08/20/2024 3:00 PM EDT Office Visit Nephrology [address] [place] [address] Aliyah Lacey MD [address] [place] [address] 12/09/2024 10:00 AM EDT Office Visit Cardiology, [facility] [address] [place] [phone] Hadley Molina MD [address] [place] [address] 01/08/2025 2:00 PM EST Office Visit Family Medicine [address] [place] [address] Shara Ray MD [address] [place] [address] [place] [address] 03/01/2025 2:40 PM EST Office Visit Nephrology [address] [place] [address] Aliyah Lacey MD [address] [place] [place] [address] Scheduled Procedures Name Priority Associated Diagnoses Date/Ti [...] Additional history exists CKD PHOS USE SMARTSET 40878 03/23/2025 02/0 04/2024, 03/22/2024, 03/21/2024, Additional history exists CKD HGB USE SMARTSET 37714 03/25/202503/25, 03/23/2024, 03/22/2024, Additional history exists Diabetic [...] this encounter Medical Devices Implanted Type Area Roving Weight Gauger Device Identifier Shelf Expiration Date Model / Serial / Lot [place] Suture Biocomposite - Sn/A - [id number] Implanted:Qty: 2 on 12/13/2021 by Moris Jimenez, DO at OR [facility] Left: Leg Lower [employer] 07/18/2024 AR-2324BCC / N/A / [id number] Vitoss Bbtrauma Foam Pack - [id number] - [id number] Implanted:Qty: 1 on 12/13/2021 by Moris Jimenez, DO at OR [facility] Left: Leg Lower MICHA : TRAUMA 01/15/[id number] / [id number] System Delivery Triclip Xtw - [id number] Implanted:Qty: 1 on 03/18/2024 at [facility] [employer] 08/11/2025 [id number] / / documented as of this [...] Advance Directives occurred with: Patient Care Teams Culinary Manager Relationship Specialty Start Date End Date Shara Ray MD [address] [place] [address] [place] [address] PCP - General Family Medicine 12/30/23 documented as of this encounter
--- OUTSIDE RECORDS SUMMARY | 2024-06-10 06:43 | External Medical Summary | Summary of Care ---
Author Name Unknown Organization [facility] Address [address] [place] [address] Phone [phone] Care Team Providers Care Automotive Parts Specialist Name Role Phone Shara Ray MD Primary Care Provide r Reason for Visit * Reason Onset Date Comments Call Back 05/13/2024 Encounter Details Date Type Department Care Team (Late st Contact Info) Description 05/13/2024 Telephone Centralized Clinical Pharmacy Services, Denia Yee [address] [place] [address] [place]rí[place]uez [address] [facility], [address] [place] [address] Call Back Allergies Active Allergy Reactions Criticality Noted Date [...] as of this encounter (statuses as of 05/13/2024) Medications acetaminophen (TYLENOL) 500 MG Tablet Take [...] needed 50 mL 12/07/19 23 Active Nystatin 289497 UNIT/ML Mouth/Throat SuspensionIndicati ons:Thrush Swish and swallow [...] use of insulin ([facility]) Use as directed. 100 Strip 11 [...] as of this encounter (statuses as of 05/13/2024) Active Problems Problem Noted Date Diagnosed Date S/P tricuspid valve repair 04/09/2024 Hypothyroidism 04/09/2024 Hyperparathyroidism 04/09/2024 Moderate tricuspid regurgitation 03/23/2024 Esophageal dysmotility 03/23/2024 Chronic right-sided heart failure 03/20/2024 Atherosclerosis of [place] co ronary artery of [place] heart without angina pectoris 04/03/2023 Major depressive [...] leg, left, subsequent encounter 09/2021 Overview (12/05/2021): [facility] ulstrasound shows hematoma calf, [...] Comments) Remote Patient Monitoring Vendor[place] [facility] Device[place]s): Connected Scale Self - Management Plan [...] Plan (07/10/2021 12:27 PM EDT): [facility] Call: I would have her do the [...] and amiodarone. On warfarin being managed by [facility] pharmacy. History of TIA (transient [...] as of this encounter (statuses as of 05/13/2024) Resolved Problems Problem Noted Date Diagnosed Date [...] IM/IV Chest Xray Additional Comments: Followed by educational administrator - Dr. Rashel Sales [facility] Assessment & Plan (12/07/2022 2:00 PM EDT): [...] 40mg IM/IV CBC Chest Xray Followed by educational administrator - Dr. Rashel Sales [facility] Complicated UTI (urinary tract infection) 12/20/2021 05/17/2022 [...] (07/12/2011): Per CKD protocol #1 [employer] Other*[id number] 06/02/2010 04/18/2011 Overview (06/02/2010): PROJECT: #[id number], SPONSOR: Aileen, PI: Adolfo De Jesus MD [...] can be closed. CONTACT: Roberto Carlos Huertas, Assembler Tubing Type 2 diabetes mellitus wit h hemoglobin [...] as of this encounter (statuses as of 05/13/2024) Immunizations Name Administration Dates Next Due COVID-19 mRNA, LNP-s, No Pre serve, 2-Dose Series (Moderna) 04/19/2020,03/22/2020 COVID-19, MRNA-LNP, PF, 30 M CG/0.3 mL, 12 YRS AND ABOVE, IM ([facility]) 12/03/2022 COVID-19, mRNA, LNP-s, PF, B [...] Assessment Author Yes 03/13/2024 3:44 PM Maury Tahcker RN * Do you have difficulty dressing [...] encounter Miscellaneous Notes * Telephone Encounter - Kirby Gates RPh - 05/13/2024 2:33 PM EDT Spoke with pt. Advised she can take coumadin 2.5mg today as instructed and then tomorrow resume normal dose of coumadin 5mg. Will still plan to recheck INR on Monday 05/15 with gml. Kirby Gates, Pharm.D. Clinical Pharmacist Centralized Clinical Pharmacy Services ([facility]) 05/13/2024, 2:34 PM [phone] * Telephone Encounter - Lyubov Galo, computer systems technician - 05/13/2024 1:46 PM EDT Caller's name: Abdi Preferred call back number(OFFICE NUMBER FOR ): [phone] Reason for call: Patient called to speak with Kirby Shultz. Is currently being discharged and instructed to take 2 and 1/2 coumadin tonight then starting tomorrow is to take Coumadin per [facility] instructions. Would like a call back from [facility] when available. Lyubov Galo Vice President For Philanthropy Centralized Clinical Pharmacy Services [address] [place] [address] Bernard Lord [id number] 05/13/2024,1:47 PM documented in this encounter Plan of Treatment Upcoming Encounters Date Type Department Care Team (Late st Contact Info) Description 05/15/2024 6:00 PM EDT Anticoagulation Centralized Clinical Pharmacy Services, Denia Yee [address] [place] [address] [place] Rodríguez [address] [facility], [facility] [address] [place] [address] 05/19/2024 1:30 PM EDT Office Visit Allergy/Immunology [employer] [address] [facility] [place]ikh [address] Macario Pathak MD [address] [facility] [place] [address] 05/20/2024 11:20 AM EDT Office Visit Family Medicine [address] [address] Shara Ray MD [address] [place] [address] [place] [address] 06/11/2024 5:00 PM EDT Home Visit [facility] [address] [facility] [place] [address] Valentina Laws RN 132 [facility] [place] [address] 06/23/2024 2:00 PM EDT Office Visit Hematology/Oncology [facility] [address] [facility] [place]ikh [phone] Bouchra Del Cid CRNP [address] [facility] [place] [address] 06/24/2024 1:40 PM EDT Office Visit Family Medicine [address] [place] [address] Shara Ray MD [address] [place] [address] [place] [address] 07/14/2024 3:00 PM EDT Cardiac Studies Cardiac Studies, [facility] [address] [place] [phone] 07/15/2024 2:00 PM EDT Office Visit Cardiology, [facility] [address] [place] [phone] Maria Ines Bowers CRNP [address] [place] [address] 08/20/2024 3:00 PM EDT Office Visit Nephrology [address] [place] [address] Aliyah Lacey MD 200 [facility] [place] [address] 12/09/2024 10:00 AM EDT Office Visit Cardiology, [facility] [address] [place] [phone] Hadley Molina MD [address] [place] [address] 01/08/2025 2:00 PM EST Office Visit Family Medicine [address] [place] [address] Shara Ray MD [address] [place] [address] [place] [address] 03/01/2025 2:40 PM EST Office Visit Nephrology [address] [place] [address] Aliyah Lacey MD 200 [place] [address] Scheduled Procedures Name Priority Associated Diagnoses Date/Ti [...] Additional history exists CKD PHOS USE SMARTSET 36265 03/23/2025 02/0 04/2024, 03/22/2024, 03/21/2024, Additional history exists CKD HGB USE SMARTSET 46650 03/25/202503/25, 03/23/2024, 03/22/2024, Additional history exists DTap/Tdap [...] this encounter Medical Devices Implanted Type Area Data Officer Device Identifier Shelf Expiration Date Model / Serial / Lot [place] Suture Biocomposite - Sn/A - [id number] Implanted:Qty: 2 on 12/13/2021 by Moris Jimenez DO at OR [facility] Left: Leg Lower [employer] 07/18/2024 [id number] / N/A / [id number] Vitoss Bbtrauma Foam Pack - [id number] - [id number] Implanted:Qty: 1 on 12/13/2021 by Moris Jimenez DO at OR [facility] Left: Leg Lower MICHA : TRAUMA 01/15/[id number] / [id number] / [id number] System Delivery Triclip Xtw - [id number] Implanted:Qty: 1 on 03/18/2024 at [facility]S [facility] [place] [employer] 08/11/2025 [id number] / / documented as of this [...] Advance Directives occurred with: Patient Care Teams Automotive Parts Specialist Relationship Specialty Start Date End Date Shara Ray MD [address] [place] [address] [place] [address] PCP - General Family Medicine 12/30/23 documented as of this encounter
--- OUTSIDE RECORDS SUMMARY | 2024-06-10 06:43 | External Medical Summary | Summary of Care ---
Author Name Unknown Organization [facility] Address [address] [facility] [place] [address] Phone [phone] Care Team Providers Care Arc Furnace Operator Name Role Phone Shara Ray MD Primary Care Provide r Reason for Visit * Reason Comments Dosage Adjustment Via Phone (anticoag Cl inic) Encounter Details Date Type Department Care Team (Late st Contact Info) Description 05/13/2024 6:00 PM EDT Anticoagulation [facility], [address] [place] [address] [place] [address] assisted current use of anticoagulant therapy*; History of [...] needed 50 mL 12/07/19 23 Active Nystatin 869900 UNIT/ML Mouth/Throat SuspensionIndicati ons:Thrush Swish and swallow [...] disease, without long-term current use of insulin ([facility]) Check your glucose daily as needed 1 Kit 07/25/19 Active LancetsIndications :Type 2 diabetes mellitus with stage 3b chronic kidney disease, without long-term current use of insulin ([facility]) Use as directed. 100 Each 07/25/19 Active Glucose Blood In Vitro StripIndications:T ype 2 diabetes mellitus with stage 3b chronic kidney disease, without long-term current use of insulin ([facility]) Use as directed. 100 Strip 07/25/19 [...] Chronic right-sided heart failure 03/20/2024 Atherosclerosis of [place] co ronary artery of [place] heart without angina pectoris 04/03/2023 Major depressive [...] leg, left, subsequent encounter 09/2021 Overview (12/05/2021): [facility] ER ulstrasound shows [...] Assessment & Plan (07/10/2021 12:27 PM EDT): [facility] Call: I would have her [...] and amiodarone. On warfarin being managed by [facility] pharmacy. History of TIA (transient ischemic [...] PM EST): Symptoms well controlled on omeprazole assisted current [...] IM/IV Chest Xray Additional Comments: Followed by mixing engineer - Dr. Rashel Sales [facility] Assessment & Plan (12/07/2022 2:00 PM [...] 40mg IM/IV CBC Chest Xray Followed by mixing engineer - [facility] Rashel Sales [facility] [...] (07/12/2011): Per CKD protocol #1 [employer] Other*[id number] 06/02/2010 04/18/2011 Overview (06/02/2010): PROJECT: #[id number], SPONSOR: Aileen, PI: Adolfo De Jesus MD [...] can be closed. CONTACT: Roberto Carlos Huertas, Head Cleaning Porter Type 2 diabetes mellitus wit h hemoglobin [...] CG/0.3 mL, 12 YRS AND ABOVE, IM (SpoonRocket-Comirnaty) 12/03/2022 COVID-19, mRNA, LNP-s, PF, B ooster, [...] s 10/28/2023 Does the household have a [facility] source of income? (Household - for ages [...] this encounter Progress Notes * Kirby Gates, [facility] - 05/13/2024 1:27 PM EDT Medication Therapy Disease Management - Anticoagulation Patient: Abdi Tello Dash | : 1955 Subjective Contacts Contact Date/Time Type Contact Phone/Fax 05/13/2024 01:36 PM EDT Phone (Outgoing) Abdi Bowling (Self) [phone] (M) Spoke to Patient Patient-Reported Symptoms: Patient Findings Positives: Hospital admission Comments: Spoke with pt today. She is being discharged home today. She said her INR was 3.0 today. She was admitted for chest pain and neck pain and said they ruled out cardiac cause. Updated trackerwith inpatient dosing per patient. She said she was told to take coumadin 2.5mg today and then tomorrow take as we instruct and recheck INR Saturday. Objective Current Warfarin Dose As of 05/13/2024 Warfarin maintenance plan: 7.5 mg (2.5 mg x 3) every Mon; 5 mg (2.5 mg x 2) all other days INR Result As of 05/13/2024 INR goal: 3.0-3.5 INR used for dosing: No new INR was available at the time of this encounter. Assessment & Plan Warfarin Plan As of 05/13/2024 Full warfarin instructions: 05/13: 2.5 mg; 05/14: 5 mg Next INR check: 05/15/2024 Repeat PT/INR in 2 day(s) Weekly dose: not changed Additional Dosing Information: Description [facility] WedFri, prefers Wed ([facility], [facility], or [facility]) Please also send myG message Kirby Gates RPh Clinical Pharmacist 05/13/2024, 1:35 PM * Brianna Zapata, tanning solution maker - 05/13/2024 12:46 PM EDT No new INR results. Spoke to [facility], they stated today's appointment was cancelled as patient was admitted to [facility]. Called pt and she advised she's supposed to be discharged today and her doctor wants her INR drawn Saturday. Pt is already on schedule for Saturday. Please advise. Thank you, Brianna Zapata Residential Care Officer [facility] Services ([facility]) 05/13/2024, 12:47 PM documented in this encounter Plan of Treatment Upcoming Encounters Date Type Department Care Team (Late st Contact Info) Description 05/15/2024 6:00 PM EDT Anticoagulation Centralized Clinical Pharmacy Services, Denia Yee [address] [place] [address] [place] Rodrí[place] [address] [facility], [address] [place] [address] 05/19/2024 1:30 PM EDT Office Visit Allergy/Immunology [facility] [place] [address] [place] [address] Macario Pathak MD 200 [facility] [address] 05/20/2024 11:20 AM EDT Office Visit Family Medicine [address] [address] Shara Ray MD [address] [place] [address] [place] [address] 06/11/2024 5:00 PM EDT Home Visit [facility], [facility] [address] [place] [address] Valentina Laws RN [address] [place] [address] 06/23/2024 2:00 PM EDT Office Visit Hematology/Oncology [facility] 200 [facility] [place] [phone] Bouchra Del Cid CRNP 400 [facility] [place] [address] 06/24/2024 1:40 PM EDT Office Visit Family Medicine [address] [phone] Shara Ray MD [address] [place] [address] [place] [address] 07/14/2024 3:00 PM EDT Cardiac Studies Cardiac Studies, [facility] [address] [place] [phone] 07/15/2024 2:00 PM EDT Office Visit Cardiology, [facility] [address] [place] [phone] Maria Ines Bowers CRNP [address] [place] [address] 08/20/2024 3:00 PM EDT Office Visit Nephrology [address] [place] [address] Aliyah Lacey MD [address] [place] [address] 12/09/2024 10:00 AM EDT Office Visit Cardiology, [facility] [address] [place] [phone] Hadley Molina MD [address] [place] [address] 01/08/2025 2:00 PM EST Office Visit Family Medicine [address] [place] [address] Shara Ray MD [address] [place] [address] [place] [address] 03/01/2025 2:40 PM EST Office Visit Nephrology [address] [place] [address] Aliyah Lacey MD [address] [place] [address] Scheduled Procedures Name Priority Associated Diagnoses Date/Ti [...] Additional history exists CKD PHOS USE SMARTSET 29710 03/23/2025 02/0 04/2024, 03/22/2024, 03/21/2024, Additional history exists CKD HGB USE SMARTSET 12490 03/25/202503/25, 03/23/2024, 03/22/2024, Additional history exists DTap/Tdap [...] this encounter Medical Devices Implanted Type Area Registered Health Nurse Device Identifier Shelf Expiration Date Model / Serial / Lot [place] Suture Biocomposite - Sn/A - [id number] Implanted:Qty: 2 on 12/13/2021 by Moris Jimenez DO at OR [facility] Left: Leg Lower [employer] 07/18/2024 AR-[id number] / N/A / [id number] Vitoss Bbtrauma Foam Pack - [id number] - [id number] Implanted:Qty: 1 on 12/13/2021 by Moris Jimenez DO at OR [facility] Left: Leg Lower MICHA : TRAUMA 01/15/2022 [id number] / [id number] / [id number] System Delivery Triclip Xtw - [id number] Implanted:Qty: 1 on 03/18/2024 at [facility]ARDIAC [facility]S [facility] [employer] 08/11/2025 [id number] / / documented as of this [...] COPD, group B, by GOLD 2017 classification ([facility]) Gastroesophageal reflux disease with esophagitis without hemorrhage Hypothyroidism, postablative Other postablative hypothyroidism Dyslipidemia, goal LDL below 100 Other and unspecified hyperlipidemia Restless legs syndrome Restless legs syndrome (RLS) Iron deficiency anemia, unspecified iron deficiency anemia type Hypertensive heart and kidney disease with chronic diastolic congestive heart failure and stage 3b chronic kidney disease (HCC)- Primary COPD, group B, by GOLD 2017 classification ([facility]) Major depressive disorder, recurrent, moderate (HCC) Major depressive disorder, recurrent episode, moderate Other persistent atrial fibrillation (HCC) Generalized anxiety disorder Atherosclerosis of mentasta coronary artery without angina pectoris, unspecified whether mentasta or transplanted heart Hypothyroidism, postablative Other postablative hypothyroidism Dyslipidemia, goal LDL below 100 Other and unspecified hyperlipidemia assisted current use of anticoagulant therapy- Primary History [...] Advance Directives occurred with: Patient Care Teams Arc Furnace Operator Relationship Specialty Start Date End Date Shara Ray MD [address] [place] [address] [place] [address] PCP - General Family Medicine 12/30/23 documented as of this encounter
--- OUTSIDE RECORDS SUMMARY | 2024-06-10 06:43 | External Medical Summary | Summary of Care ---
Author Name Unknown Organization [facility] Address [address] [place] [address] Phone [phone] Care Team Providers Care Gliding Pilot Instructor Name Role Phone Shara Ray MD Primary Care Provide r Reason for Referral * Medication Prior Authorization - Closed Specialty Diagnoses / Procedures Referred By Contac t Referred To Contact Diagnoses Bronchitis, complicated Derrick Olivera MD [address] [place] [address] [place] [address] Phone: tel: fax: Referral ID Status Reason Start Date Expiration Date Visits Re quested Visits Authorized [id number] Closed 999 999 Reason for Visit * Reason Onset Date Comments Medication Refill 05/11/2024 Encounter Details Date Type Department Care Team (Late st Contact Info) Description 05/11/2024 Refill Family Medicine [address] [place] [phone] Chastity Kim PA-C [address] [place] [address] [place] [address] Bronchitis, complicated Allergies Active Allergy Reactions Criticality [...] as of this encounter (statuses as of 05/14/2024) Medications acetaminophen (TYLENOL) 500 MG Tablet Take [...] needed 50 mL 12/07/19 23 Active Nystatin 919511 UNIT/ML Mouth/Throat SuspensionIndicati ons:Thrush Swish and swallow [...] days. 20 Tablet 05/05/19 25 025 Active Ipratropium-Albute rol 0.5-2.5 (3) MG/3ML Inhalation [...] for Cough. 120 mL 05/15/19 25 Active guaiFENesin-Codein e 100-10 MG/5ML Oral Solution (Robitussin AC)Indications:Bro nchitis, complicated Take 5 mL by mouth 3 times a day as needed for Cough. 120 mL 05/06/19 25 025 Discontin ued(Refil l) documented as of this encounter (statuses as of 05/14/2024) Active Problems Problem Noted Date Diagnosed Date S/P tricuspid valve repair 04/09/2024 Hypothyroidism 04/09/2024 Hyperparathyroidism 04/09/2024 Moderate tricuspid regurgitation 03/23/2024 Esophageal dysmotility 03/23/2024 Chronic right-sided heart failure 03/20/2024 Atherosclerosis of [place] co ronary artery of [place] heart without angina pectoris 04/03/2023 Major [...] and amiodarone. On warfarin being managed by [facility] pharmacy. History of TIA (transient [...] as of this encounter (statuses as of 05/14/2024) Resolved Problems Problem Noted Date Diagnosed Date [...] IM/IV Chest Xray Additional Comments: Followed by improvement specialist - [facility] Rashel [facility] 40mg IM/IV CBC Chest Xray Followed by improvement specialist - Dr. Rashel Sales [facility] [...] (07/12/2011): Per CKD protocol #1 [employer] Other*[id number] 06/02/2010 04/18/2011 Overview (06/02/2010): PROJECT: #[id number], SPONSOR: Aileen, PI: Adolfo De Jesus MD [...] be closed. CONTACT: Roberto Carlos Huertas, Mechanical Engineering Manager Type 2 diabetes mellitus wit h [...] as of this encounter (statuses as of 05/14/2024) Immunizations Name Administration Dates Next Due COVID-19 [...] encounter Miscellaneous Notes * Telephone Encounter - Derrick Olivera MD - 05/14/2024 8:36 AM EDTSigned Prescriptions: Disp Refills guaiFENesin-Codeine 100-10 MG/5ML Oral Sally*120 mL 0 Sig: Take 5 mL by mouth 3 times a day as needed for Cough. Authorizing Provider: DERRICK OLIVERA * Telephone Encounter - Kalyan Jimenez [facility] - 05/12/2024 9:10 AM EDT Pending Prescriptions: Disp Refills guaiFENesin-Codeine 100-10 MG/5ML Oral Sally*120 mL 0 Sig: Take 5 mL by mouth 3 times a day as needed for Cough. * Telephone Encounter - Nettie Clark LPN - 05/11/2024 3:15 PM EDT Pending Prescriptions: Disp Refills guaiFENesin-Codeine 100-10 MG/5ML Oral So*120 mL 0 Sig: Take 5 mL by mouth 3 times a day as needed for Cough. Last Visit: 05/04/2024 (in office), 10/11/2020 (telemedicine) Next Visit: 06/24/2024 Last date the medication was ordered: 05/05/2024 Patient Active Problem List Diagnosis Rheumatic heart disease medical terminologist current use of anticoagulant therapy S/P mitral valve replacement Gastroesophageal reflux disease with esophagitis without hemorrhage Generalized osteoarthritis Hypothyroidism, postablative Atherosclerosis of [place] coronary artery of [place] heart without angina pectoris Dyslipidemia, goal LDL [...] Results Component Value Date/Time CREATININE - [facility] 2.1 (H) 05/08/2024 09:06 AM CREATININE - [facility] 1.4 (H) 10/05/2019 12:41 PM CREATININE - [facility] 0.8 12/09/1995 09:50 AM CREATININE AMAURY 21 12/15/2019 12:14 PM CREATININE, RANDOM URINE - [facility] 32 09/26/2023 12:34 PM CREATININE, RANDOM URINE - [facility] 18 09/07/2019 11:01 AM Lab Results Component Value Date/Time POTASSIUM - [facility] 4.2 05/08/2024 09:06 AM POTASSIUM - [facility] 4.0 10/05/2019 12:41 PM [...] Results Component Value Date/Time ALT - [facility] 25 03/18/2024 03:12 AM ALT - [facility] 26 09/07/2019 11:01 AM [...] - [facility] 5.8 (H) 08/29/2018 08:13 AM documented in this encounter Plan of Treatment Upcoming Encounters Date Type Department Care Team (Late st Contact Info) Description 05/15/2024 6:00 PM EDT Anticoagulation [facility], Denia Yee [address] [place] [address] [place] [address] [facility], [address] [place] [address] 05/19/2024 1:30 PM EDT Office Visit Allergy/Immunology [facility] Lacy Novinger [address] [facility] [place] [address] Macario Pathak MD 200 [facility] [place] [address] 05/20/2024 11:20 AM EDT Office Visit Family Medicine [address] [place] [phone] Shara Ray MD [address] [place] [address] [place] [address] 06/11/2024 5:00 PM EDT Home Visit [facility], [address] [place] [address] Valentina Laws RN [address] [place] [address] 06/23/2024 2:00 PM EDT Office Visit Hematology/Oncology [facility] [place] [address] [facility] [place] [phone] Bouchra Del Cid CRNP 400 [facility] [place] [address] 06/24/2024 1:40 PM EDT Office Visit Family Medicine [address] [place] [phone] Shara Ray MD [address] [place] [address] [place] [address] 07/14/2024 3:00 PM EDT Cardiac Studies Cardiac Studies, [facility] [address] [place] [phone] 07/15/2024 2:00 PM EDT Office Visit Cardiology, [facility] [address] [place] [phone] Maria Ines Bowers CRNP [address] [place] [address] 08/20/2024 3:00 PM EDT Office Visit Nephrology [address] [place] [address] Aliyah Lacey MD [address] [facility] [place] [address] 12/09/2024 10:00 AM EDT Office Visit Cardiology, [facility] [address] [place] [phone] Hadley Molina MD [address] [place] [address] 01/08/2025 2:00 PM EST Office Visit Family Medicine [address] [place] [phone] Shara Ray MD [address] [place] [address] [place] [address] 03/01/2025 2:40 PM EST Office Visit Nephrology [address] [place] [address] Aliyah Lacey MD [address] [facility] [address] Scheduled Procedures Name Priority Associated Diagnoses Date/Ti [...] Additional history exists CKD PHOS USE SMARTSET 48235 03/23/2025 02/0 04/2024, 03/22/2024, 03/21/2024, Additional history exists CKD HGB USE SMARTSET 81510 03/25/202503/25, 03/23/2024, 03/22/2024, Additional history exists DTap/Tdap [...] this encounter Medical Devices Implanted Type Area Hide Tanner Device Identifier Shelf Expiration Date Model / Serial / Lot Campbell Suture Biocomposite - Sn/A - [id number] Implanted:Qty: 2 on 12/13/2021 by Moris Jimenez, DO at OR [facility] Left: Leg Lower [employer] 07/18/2024 [id number] / N/A / [id number] Vitoss Bbtrauma Foam Pack - [id number] - [id number] Implanted:Qty: 1 on 12/13/2021 by Moris Jimenez DO at OR [facility] Left: Leg Lower MICHA : TRAUMA 01/15/[id number] / [id number] / [id number] System Delivery Triclip Xtw - [id number] Implanted:Qty: 1 on 03/18/2024 at [facility] Pharmalink 08/11/2025 [id number] / / documented as of this encounter Visit Diagnoses Diagnosis Gastroesophageal reflux disease with esophagitis without hemorrhage- Primary Type 2 diabetes mellitus with stage 3b chronic kidney disease, without long-term current use of insulin ([facility]) Permanent atrial fibrillation ([facility]) Atrial fibrillation Restless legs syndrome Restless [...] of unspecified site Permanent atrial fibrillation ([facility]) Atrial fibrillation Chronic obstructive pulmonary disease, unspecified COPD type ([facility]) Old myocardial infarct Old myocardial infarction Type 2 diabetes mellitus with stage 3b chronic kidney disease, without long-term current use of insulin ([facility]) Hypothyroidism, postablative Other postablative hypothyroidism Generalized anxiety disorder Permanent atrial fibrillation (HCC)- Primary Atrial fibrillation Type 2 diabetes mellitus with stage 3b chronic kidney disease, without long-term current use of insulin ([facility]) Hypertensive heart and kidney disease with chronic diastolic congestive heart failure and stage 3b chronic kidney disease (HCC) COPD, group B, by GOLD 2017 classification ([facility]) Gastroesophageal reflux disease with esophagitis without [...] group B, by GOLD 2017 classification ([facility]) Major depressive disorder, recurrent, moderate ([facility]) Major depressive disorder, recurrent episode, moderate Other persistent atrial fibrillation ([facility]) Generalized anxiety disorder Atherosclerosis of prairie band coronary artery without angina pectoris, unspecified whether prairie band or transplanted heart Hypothyroidism, postablative Other [...] Advance Directives occurred with: Patient Care Teams Gliding Pilot Instructor Relationship Specialty Start Date End Date Shara Ray MD [address] [place] [address] [place] [address] PCP - General Family Medicine 12/30/23 documented as of this encounter
--- OUTSIDE RECORDS SUMMARY | 2024-06-10 06:44 | External Medical Summary | Summary of Care ---
Author Name Unknown Organization [facility] Address [address] [facility] [place] [address] Phone [phone] Care Team Providers Care Maintenance Foreman Name Role Phone Shara Ray MD Primary Care Provide r Reason for Visit * Reason Comments Dosage Adjustment Via Phone (anticoag Cl inic) Encounter Details Date Type Department Care Team (Late st Contact Info) Description 05/13/2024 6:00 PM EDT Anticoagulation [facility], [address] [place] [address] [place] [address] penitentiary current use of anticoagulant therapy*; History [...] needed 50 mL 12/07/19 23 Active Nystatin 492843 UNIT/ML Mouth/Throat SuspensionIndicati ons:Thrush Swish and swallow [...] disease, without long-term current use of insulin ([facility]) Check your glucose daily as needed 1 Kit 07/25/19 Active LancetsIndications :Type 2 diabetes mellitus with stage 3b chronic kidney disease, without long-term current use of insulin ([facility]) Use as directed. 100 Each 07/25/19 Active Glucose Blood In Vitro StripIndications:T ype 2 diabetes mellitus with stage 3b chronic kidney disease, without long-term current use of insulin ([facility]) Use as directed. 100 Strip 07/25/19 [...] Chronic right-sided heart failure 03/20/2024 Atherosclerosis of [place] co ronary artery of [place] heart without angina pectoris 04/03/2023 Major depressive [...] Assessment & Plan (07/10/2021 12:27 PM EDT): [facility] Call: I would have her [...] and amiodarone. On warfarin being managed by [facility] pharmacy. History of TIA (transient ischemic [...] PM EST): Symptoms well controlled on omeprazole penitentiary current [...] IM/IV Chest Xray Additional Comments: Followed by whipped topping supervisor - Dr. Rashel Sales [facility] Assessment [...] 40mg IM/IV CBC Chest Xray Followed by whipped topping supervisor - Dr. Rashel Sales [facility] Complicated [...] (07/12/2011): Per CKD protocol #1 [employer] Other*[id number] 06/02/2010 04/18/2011 Overview (06/02/2010): PROJECT: #[id number], SPONSOR: Aileen, PI: Adolfo De Jesus MD [...] can be closed. CONTACT: Roberto Carlos Huertas, Architectural Project Manager Type 2 diabetes mellitus wit h [...] CG/0.3 mL, 12 YRS AND ABOVE, IM ([facility]) 12/03/2022 COVID-19, mRNA, LNP-s, PF, B ooster, [...] this encounter Progress Notes * Kirby Gates, [facility] - 05/13/2024 1:27 PM EDT Medication Therapy Disease Management - Anticoagulation Patient: Abdi Tello Dash | : 1955 Subjective Contacts Contact Date/Time Type Contact Phone/Fax 05/13/2024 01:36 PM EDT Phone (Outgoing) Abdi Bowling (Self) [phone] (M) Spoke to Patient Patient-Reported Symptoms: Patient [...] dose: not changed Additional Dosing Information: Description [facility] WedFri, prefers Wed ([facility], [facility], or [facility]) Please also send myG message Kirby Gates RPh Clinical Pharmacist 05/13/2024, 1:35 PM * Brianna Zapata, tool or die drawing checker - 05/13/2024 12:46 PM EDT No new INR results. Spoke to [facility], they stated today's appointment was cancelled as patient was admitted to [facility]. Called pt and she advised she's supposed to be discharged today and her doctor wants her INR drawn Saturday. Pt is already on schedule for Saturday. Please advise. Thank you, Brianna Zapata Voip Engineer [facility] ([facility]) 05/13/2024, 12:47 PM documented in this encounter Plan of Treatment Upcoming Encounters Date Type Department Care Team (Late st Contact Info) Description 05/15/2024 6:00 PM EDT Anticoagulation [facility] Services, Denia Yee [address] [place] [address] [place] [address] [facility], [address] [place] [address] 05/19/2024 1:30 PM EDT Office Visit Allergy/Immunology [facility] [place] [address] [place] [address] Macario Pathak MD 200 [facility] [address] 05/20/2024 11:20 AM EDT Office Visit Family Medicine [address] [phone] Shara Ray MD [address] [place] [address] [place] [address] 06/11/2024 5:00 PM EDT Home Visit [facility], [facility] [address] [place] [address] Valentina Laws RN [address] [place] [address] 06/23/2024 2:00 PM EDT Office Visit Hematology/Oncology [facility] 200 [facility] [place] [phone] Bouchra Del Cid CRNP 400 [facility] [place] [address] 06/24/2024 1:40 PM EDT Office Visit Family Medicine [address] [phone] Shara Ray MD [address] [place] [address] [place] [address] 07/14/2024 3:00 PM EDT Cardiac Studies Cardiac Studies, [facility] [address] [place] [phone] 07/15/2024 2:00 PM EDT Office Visit Cardiology, [facility] [address] [place] [phone] Maria Ines Bowers CRNP [address] [place] [address] 08/20/2024 3:00 PM EDT Office Visit Nephrology [address] [place] [address] Aliyah Lacey MD [address] [place] [address] 12/09/2024 10:00 AM EDT Office Visit Cardiology, [facility] [address] [place] [phone] Hadley Molina MD [address] [place] [address] 01/08/2025 2:00 PM EST Office Visit Family Medicine [address] [place] [phone] Shara Ray MD [address] [place] [address] [place] [address] 03/01/2025 2:40 PM EST Office Visit Nephrology [address] [place] [address] Aliyah Lacey MD [address] [place] [address] Scheduled Procedures Name Priority Associated Diagnoses Date/Ti [...] Additional history exists CKD PHOS USE SMARTSET 09171 03/23/2025 02/0 04/2024, 03/22/2024, 03/21/2024, Additional history exists CKD HGB USE SMARTSET 12291 03/25/202503/25, 03/23/2024, 03/22/2024, Additional history exists DTap/Tdap [...] this encounter Medical Devices Implanted Type Area Jailer Device Identifier Shelf Expiration Date Model / Serial / Lot Corral Suture Biocomposite - Sn/A - [id number] Implanted:Qty: 2 on 12/13/2021 by Moris Jimenez DO at OR [facility] Left: Leg Lower [employer] 07/18/2024 AR-[id number] / N/A / [id number] Vitoss Bbtrauma Foam Pack - [id number] - [id number] Implanted:Qty: 1 on 12/13/2021 by Moris Jimenez DO at OR [facility] Left: Leg Lower MICHA : TRAUMA 01/15/2022 [id number] / [id number] / [id number] System Delivery Triclip Xtw - [id number] Implanted:Qty: 1 on 03/18/2024 at [facility] Twyxt 08/11/2025 [id number] / / documented as of this [...] COPD, group B, by GOLD 2017 classification ([facility]) Gastroesophageal reflux disease with esophagitis without hemorrhage Hypothyroidism, postablative Other postablative hypothyroidism Dyslipidemia, goal LDL below 100 Other and unspecified hyperlipidemia Restless legs syndrome Restless legs syndrome (RLS) Iron deficiency anemia, unspecified iron deficiency anemia type Hypertensive heart and kidney disease with chronic diastolic congestive heart failure and stage 3b chronic kidney disease (HCC)- Primary COPD, group B, by GOLD 2017 classification ([facility]) Major depressive disorder, recurrent, moderate (HCC) Major depressive disorder, recurrent episode, moderate Other persistent atrial fibrillation (HCC) Generalized anxiety disorder Atherosclerosis of [place] coronary artery without angina pectoris, unspecified whether [place] or transplanted heart Hypothyroidism, postablative Other postablative hypothyroidism Dyslipidemia, goal LDL below 100 Other and unspecified hyperlipidemia penitentiary current use of anticoagulant therapy- Primary [...] Advance Directives occurred with: Patient Care Teams Maintenance Foreman Relationship Specialty Start Date End Date Shara Ray MD [address] [place] [address] [place] [address] PCP - General Family Medicine 12/30/23 documented as of this encounter
[2024-06-10] MEDS: CITALOPRAM 20 MG TAB PO SCH (08:12)
[2024-06-10] MEDS: FOLIC ACID 1 MG TAB PO SCH (08:13)
[2024-06-10] MEDS: ROSUVASTATIN CALCIUM 10 MG TAB PO SCH (08:13)
[2024-06-10] MEDS: TORSEMIDE 100 MG TAB PO SCH (08:14)
[2024-06-10] MEDS: METOPROLOL SUCC 50MG EXT REL TAB PO SCH (08:15)
[2024-06-10] MEDS: rOPINIRole HCL 2 MG TABLET PO SCH (08:15)
[2024-06-10] MEDS: AZELASTINE HCL 0.1% NASAL 200 SPRAYS/27,400 MCG BTL SCH (08:15)
[2024-06-10] MEDS: PANTOprazole 40 MG TAB PO SCH (08:15)
[2024-06-10] MEDS: CHECK BUPRENORPHINE PATCH SCH (08:16)
[2024-06-10] MEDS: BUPRENORPHINE 5 MCG/HR TDSY TD SCH (13:21)
[2024-06-10] MEDS: Nursing to Pharmacy Communication SCH (13:21)
[2024-06-10 14:02] VITALS: BP 114/66; PULSE 63; RESP 18; TEMP 98; O2SAT 99
[2024-06-10] MEDS ORDERED: TORSEMIDE 10 MG TAB PO SCH (15:00)
--- NOTE | 2024-06-10 16:09 | Discharge Summary ---
Discharge Summary Date of Service June 10, 2024 Principal Dx & Hospital Course #1 = Principal Diagnosis Notes For Next Care Provider 68 yo female with pmhx chronic diastolic heart failure (EF 55%, TTE 2024), SSS/rheumatic heart disease/history of mechanical MVR on Coumadin, history of Linq insertion, CAD as per records, mild AR, severe TR status post Triclip procedure, hypertension, hyperlipidemia, history embolic CVA as per records, COPD, esophageal dysmotility as per records, DM2 diet-controlled, hypothyroidism, hyperparathyroidism as per records, CRI (baseline creatinine 1.6-2 as per records), RLS, chronic pain on Suboxone presents for vaginal bleeding. On medicine, gynecology consulted, speculum exam revealed oozing area which was treated. Hgb stable. Patient has no signs or symptoms of UTI. on 06/10/2024 patient medically stable for discharge home, no longer bleeding. To do: [ ] f/u with gynecology, PCP Medication Changes From Visit -see below Admission HPI Per Admitting Provider History obtained from patient and records. Medical history significant for chronic diastolic heart failure (EF 55%, TTE 2024), SSS/rheumatic heart disease/history of mechanical MVR on Coumadin, history of Linq insertion, CAD as per records, mild AR, severe TR status post Triclip procedure, hypertension, hyperlipidemia, history embolic CVA as per records, COPD, esophageal dysmotility as per records, DM2 diet-controlled, hypothyroidism, hyperparathyroidism as per records, CRI (baseline creatinine 1.6-2 as per records), RLS, chronic pain on Suboxone. Recent confinement last month for chest pain. Few days history of vaginal bleeding following sexual intercourse which was a little rough as per patient account. Patient passing blood clots. Tolerable achy lower abdominal pain. No fever, no chills. Denies headache, chest pain, SOB. IV ceftriaxone administered at the ER. 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 External ears normal. No rhinorrhea. Moist mucous membranes. Neck: Supple, full range of motion, no observable masses, No meningeal sign. Lungs: No Respiratory distress. CV: RRR, no edema. Abdomen: Soft, nondistended, No rebound tenderness. MSK: No joint swelling, no redness. Skin: No rashes, petechiae, lesions. Normal color per patient. Neuro: Normal Gait, Grossly intact. Psych: Appropriate for situation. Updated Medication List Medication Instructions Recorded Confirmed Type cholecalciferol (vitamin D3) 25 1,000 unit PO Q OTHER DAY 12/05/17 06/10/24 History mcg (1,000 unit) capsule (Vitamin D3) nitroglycerin 0.4 mg sublingual 0.4 mg sublingual DIRECTED PRN 12/05/17 06/10/24 History tablet (Nitrostat) Chest Pain omeprazole 20 mg capsule,delayed 20 mg PO QAM 12/05/17 06/10/24 History release levothyroxine 100 mcg tablet 100 mcg PO DAILYBB 05/18/18 06/10/24 History folic acid 1 mg tablet 1 mg PO QAM #30 tabs 05/21/18 06/10/24 Rx spironolactone 25 mg tablet 12.5 mg PO QAM 12/31/19 06/10/24 History citalopram 10 mg tablet 10 mg PO QAM 07/18/21 06/10/24 History tramadol 50 mg tablet 50 mg PO Q6 PRN .severe 07/18/21 06/10/24 History breakthrough pain azelastine 137 mcg (0.1 %) nasal 2 spray intranasal AMHS 08/02/21 06/10/24 History spray ropinirole 2 mg tablet 2 mg PO TID 09/01/21 06/10/24 History Incentive Spirometer #1 ea 09/05/21 06/10/24 Rx valacyclovir 1 gram tablet 2,000 mg PO AMPM PRN Cold Sores 11/30/21 06/10/24 History Oxygen Home #1 ea 04/08/23 06/10/24 Rx Oxygen Home #2 ea 05/03/23 06/10/24 Rx acetaminophen 500 mg tablet 500 mg PO Q6H PRN Pain 07/09/23 06/10/24 History (Tylenol Extra Strength) albuterol sulfate 90 mcg/actuation 2 puff inhalation Q4H PRN 07/09/23 06/10/24 History aerosol inhaler COUGH/SHORT OF BREATH/WHEEZING benzonatate 100 mg capsule 100 mg PO TID PRN cough 07/09/23 06/10/24 History buprenorphine 5 mcg/hour weekly 5 mcg transdermal WK 07/09/23 06/10/24 History transdermal patch empagliflozin 10 mg tablet 10 mg PO QAM 07/09/23 06/10/24 History (Jardiance) lidocaine HCl 4 % (40 mg/mL) 1 applic mucous membrane 07/09/23 06/10/24 History mucosal solution DIRECTED PRN MOUTH ULCERS metoclopramide HCl 10 mg tablet 10 mg PO DAILYBB PRN Nausea 07/09/23 06/10/24 History (Reglan) nystatin 100,000 unit/mL oral 5 ml mucous membrane QID PRN THRUSH 07/09/23 06/10/24 History suspension warfarin 2.5 mg tablet 2.5 mg PO DIRECTED 07/09/23 06/10/24 History metoprolol succinate 50 mg 50 mg PO QAM #30 tabs 07/14/23 06/10/24 Rx tablet,extended release 24 hr ipratropium 20 mcg-albuterol 100 1 puff inhalation QID PRN 11/04/23 06/10/24 Rx mcg/actuation mist for inhalation Shortness Of Breath #12 grams (Combivent Respimat) ipratropium 0.5 mg-albuterol 3 mg 3 ml inhalation QID PRN shortness 05/05/24 06/10/24 Rx (2.5 mg base)/3 mL nebulization of breath or wheezing #1,080 mL soln metoprolol succinate 25 mg 25 mg PO HS 05/12/24 06/10/24 History tablet,extended release 24 hr potassium chloride 10 mEq 20 meq PO BID 05/12/24 06/10/24 History tablet,extended release torsemide 100 mg tablet 50 mg PO .DAILY IN AFTERNOON 05/12/24 06/10/24 History rosuvastatin 10 mg tablet 10 mg PO QAM 06/10/24 06/10/24 History torsemide 100 mg tablet 100 mg PO QAM 06/10/24 06/10/24 History Hospital Stay Data Consultations 06/10/24 03:14 ED Decision to Admit Stat Diagnostic Imagining Performed 04/22/25 22:12 US pelvic complete Stat 06/09/24 22:13 US transvaginal Stat 06/10/24 00:36 CT abd pelvis wo con Stat Pending Results Patient Have Any Pending Studies at Discharge: No Discharge Instructions Given to Patient (Per Discharging Provider) 1. Please follow up with PCP and [facility], along with coumadin clinic. Total Time Total Time Spent Total Time Spent (In Minutes): I spent a total of 35 minutes in direct patient care, including [id number] time with the patient and/or family, reviewing medical records, ordering and reviewing diagnostic tests, and coordinating care with other healthcare providers. This time includes: history taking, physical examination, medical decision making, counseling, ECG interpretation, imaging interpretation, lab interpretation, orders, and education, excluding time spent in the performance of separately billed services.
[2024-06-10] MEDS ORDERED: METOPROLOL SUCC 25MG EXT REL TAB PO SCH (21:00)
[2024-06-11] MEDS ORDERED: cefTRIAXone SODIUM 1,000 MG/50 ML BAG IV SCH (01:00)
[2024-06-11] MEDS ORDERED: CHOLECALCIFEROL 25 MCG (1000 UNITS) TAB PO SCH (09:00)
== END 2024-06-10 15:20 | disposition home or self-care (01) | DRG 749 ==
LOC: ED 19:29 → EDINP 06-10 04:07

== ENCOUNTER 2024-11-04 13:58 | Inpatient (IN) ==
--- NOTE | 2024-11-04 14:45 | Emergency Department Note ---
Impression & Plan UTI (urinary tract infection), CHF (congestive heart failure), Hyperammonemia ED Provider Note NAME: ALCIDES MAST AGE: 69 SEX: F : 1955 ARRIVES VIA: Walk-In INFORMANT: Patient ED PROVIDER(S): Deandre Kumar MD CHIEF COMPLAINT: Weakness, edema, referred PLAN: Disposition: Admit MEDICAL DECISION MAKING: The patient is a pleasant 69-year-old woman with a past medical history of COPD, CHF, history of mechanical mitral valve on warfarin, hypertension, hyperlipidemia who presents to the emergency department via walk-in accompanied by her cousin who is also her caregiver referred by [facility] upon recommendations of her outpatient provider in the setting of having worsening generalized weakness over the past week with ongoing weight gain despite outpatient management of her Lasix and metolazone. The patient's caregiver reports that her legs have become increasingly swollen. She has also been increasingly tired and sleepy throughout the day. Denies any fevers, chest pain, nausea, vomiting or diarrhea. She has constipation her last bowel movement was this morning was normal. On evaluation patient is chronically ill-appearing but no distress, afebrile with stable vital signs. She appears hypervolemic with 1+ bilateral lower extremity pitting edema. There is a chronic left pretibial ulcer that is dressed with Xeroform gauze. She exhibits generalized weakness without focal deficits. EKG without overt acute ischemia. CXR demonstrates vascular congestion with most likely mild pulmonary edema with consolidation considered less likely given the clinical context per my personal preliminary review/interpretation. WBC within normal limits. There is no neutrophilia or left shift. H/H decreased from recent but similar to prior range of values. Platelets within normal limits. VBG unremarkable. Chemistry without metabolic acidosis. Creatinine 2.57 increased from May but within prior range values in the setting of the patient's CKD. Total bili 1.5, [place] is otherwise unremarkable. High-sensitivity troponin 14.4, nonspecific with BNP 271 also not but in setting of the patient's not CHF with CKD and hypervolemic appearance. Lipase not elevated. Procalcitonin is not elevated. TSH within limits. Ammonia was mildly elevated above normal at 77 but patient has no history of cirrhosis. May be secondary to nutritional deficiency such as carnitine deficiency. UA suspicious for infection with positive nitrites, WBCs, and 4+ bacteria. Treatment initiated with IV ceftriaxone. Patient additionally treated with IV Bumex for component of hypervolemia. Case was discussed with Dilma Gore [facility], with Dr. [facility] who will evaluate the patient for admission. Further management per admitting team. Triage Nursing notes reviewed and agree them. Prior/external medical records reviewed Vital Signs: reviewed Differential diagnosis: Infection, dehydration, metabolic abnormality, hypo/hyperglycemia, electrolyte disturbance, anemia, hypoxia, cardiac sources, intracerebral event, toxicologic, neurologic, as well as other pathologies. ER treatment provided: See below. Diagnostics interpreted by me: ECG: Sinus bradycardia, 54 bpm, first-degree block, premature supraventricular complexes, LVH, no overt ST elevation or depression, QTc 457, QRS 94. Cardiac Monitoring: An order for continuous cardiac monitoring was placed and demonstrated Sinus bradycardia, 54 bpm, no ectopy. Laboratory studies: See below Imaging studies: See below Consultation(s): Dilma Gore, with [facility] HPI: Per MDM. ROS: See above HPI for pertinent positives & negatives. A total of 10 systems reviewed and were otherwise negative. VITALS:See Below PHYSICAL EXAMINATION: GENERAL: Awake, alert, chronically-ill/fatigued-appearing, in no distress HENT: Normocephalic, atraumatic. Oropharynx unremarkable. EYES: Normal conjunctiva. Sclera non-icteric. NECK: Supple. No nuchal rigidity. FROM. No JVD. RESPIRATORY: Clear to auscultation. CARDIAC: Regular rate, normal rhythm. Extremities warm and well perfused. Pulses equal. ABDOMEN: Soft, non-distended. No tenderness to palpation. No rebound or guarding. No masses. MUSCULOSKELETAL: Chest examination reveals no tenderness. The back is symmetrical on inspection without obvious abnormality. There is no CVA tenderness to palpation. No joint edema. LOWER EXTREMITIES: Calves are equal size bilaterally and non-tender. 1+ bilateral lower extremity pitting edema. There is a chronic left pretibial ulcer that is dressed with Xeroform gauze. NEURO: Normal sensorium. Generalized weakness without focal sensory or motor deficits noted. SKIN: No rash or jaundice noted. Deandre Kumar MD Past Med/Surg History Problem List Hyperammonemia (Acute) CHF (congestive heart failure) (Acute) UTI (urinary tract infection) (Acute) Nocturnal hypoxia Cellulitis of left lower extremity Acute on chronic heart failure with preserved ejection fraction (HFpEF) Severe tricuspid valve insufficiency Bilateral edema of lower extremity (Acute) Fatigue (Acute) Dyspnea (Acute) Complicated UTI (urinary tract infection) Postmenopausal postcoital bleeding Vaginal atrophy Supratherapeutic INR (Acute) Vagina bleeding (Acute) Elevated troponin (Acute) Substernal chest pain (Acute) Depression Elevated troponin Esophageal dysmotility Chronic pain COPD (chronic obstructive pulmonary disease) Chest pain Acute kidney injury superimposed on chronic kidney disease (Acute) Acute exacerbation of CHF (congestive heart failure) (Acute) Restrictive lung disease CHF (congestive heart failure) (Acute) Cough (Acute) Acute dyspnea (Acute) Acute foot pain (Acute) Supratherapeutic INR (Acute) Exertional shortness of breath Upper airway cough syndrome Chronic cough Occult blood positive stool H/O mitral valve replacement with mechanical valve Rheumatic heart disease Permanent atrial fibrillation History of CVA (cerebrovascular accident) Chronic diastolic CHF (congestive heart failure) Nontraumatic intramuscular hematoma Hematoma of left thigh (Acute) Mechanical heart valve present (Acute) Encounter for pre-operative examination Asthmatic bronchitis Acute bronchitis Pleural effusion Abnormal chest CT Dysphagia Pneumonia Acute on chronic diastolic HF (heart failure) Shortness of breath (Acute) Atypical chest pain (Acute) Hypoxia (Acute) Chronic heart failure with preserved ejection fraction (HFpEF) History of loop recorder Recurrent syncope Syncope (Acute) UTI (urinary tract infection) DVT prophylaxis Hypothyroidism CKD (chronic kidney disease), stage III Recurrent syncope (Acute) Contusion of scalp (Acute) Hypokalemia (Acute) Dehydration (Acute) Substernal chest pain (Acute) Elevated INR (Acute) Status post total right knee replacement Knee pain Tricompartment degenerative joint disease of knee Knee effusion, left (Acute) A-fib (Chronic) Mitral valve replaced (Chronic) Hemangioma (Acute) Syncope (Acute) Closed head injury (Acute) Forehead laceration (Acute) Burn of hand, right (Acute) VICKY (acute kidney injury) (Acute) Pre-syncope Acute renal failure Severe protein-calorie malnutrition Gant classified according to extent of body surface involved Atrial fibrillation Coronary artery disease Mechanical heart valve present History of CVA (cerebrovascular accident) Diabetes type 2, controlled Hypothyroidism DVT prophylaxis Discharge planning issues Hematoma Rheumatic disease of heart valve H/O mitral valve replacement with mechanical valve Leg edema Post-concussion headache Slurred speech (Acute) Numbness (Acute) Encounter for pre-operative examination Degenerative joint disease of left knee Acute blood loss as cause of postoperative anemia DVT prophylaxis S/P TKR (total knee replacement) Pain, joint, knee, left Hemarthrosis involving knee joint Discharge planning issues Anemia chronic; baseline hgb 9-10 range per chart review Medical History History of blood transfusion autologous s/p MVR (1993), 09/2018 (post-op) A-fib 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 migraine vs. stress related)-- plavix since discontinued Anxiety Restless legs syndrome Migraines Diabetes diet controlled HTN (hypertension) Surgical History History of cardiac cath 2000= NO STENTS History of total left knee replacement History of colonoscopy Hx of tubal ligation Hx of appendectomy History of tonsillectomy and adenoidectomy Hx of cholecystectomy Hx of mitral valve replacement 1993 (rheumatic valvular disease) H/O: hysterectomy H/O radioactive iodine thyroid ablation Family History Uncle , of [place] in his 40s Coronary heart disease Social History Smoking Status: Never smoker Second Hand Exposure: No; Do You Dip or Chew Tobacco: No; Hx Alcohol Use: Yes Alcohol type: wine Hx Substance Use: No Preferred Language: Bulgarian Communication Ability: Effective Communication Ability Comment: speech impediment, easily understood Washery Engineer Required: No Beliefs That Will Affect Care: None marital status: Single Current Living Situation: Alone Current Living Situation Comment: cousin/caregiver lives next door current occupational status: disabled How many Children do You have: 0 Other Information That Helps Us Care for You: No Feels Safe at Home: Yes Safety Concerns: Feels Safe At This Time Assistive Devices: Denture - Upper, Denture - Lower, Glasses, Hearing Aid - Bilateral, Oxygen - at Night, Stair Lift and Walker Allergies Allergies Allergy/AdvReac Type Severity Reaction Status Date / Time budesonide Allergy Severe could not Verified 11/04/24 18:17 breath enoxaparin [From Lovenox] Allergy Unknown ON Verified 11/04/24 18:17 [facility] hydroxyzine AdvReac Severe DYSTONIA Verified 11/04/24 18:17 prochlorperazine AdvReac Severe NUCHAL Verified 11/04/24 18:17 DYSTONIA promethazine AdvReac Severe NUCHAL Verified 11/04/24 18:17 DYSTONIA PERRY Inhibitors AdvReac Intermediate COUGH Verified 11/04/24 18:17 gabapentin AdvReac Intermediate CONFUSION/D Verified 11/04/24 18:17 ROWSY lisinopril AdvReac Intermediate Cough Verified 11/04/24 18:17 metformin AdvReac Intermediate DIARRHEA Verified 11/04/24 18:17 oxycodone AdvReac Intermediate NUMB ALL Verified 11/04/24 18:17 OVER parsley AdvReac Intermediate AGITATION Verified 11/04/24 18:18 tetracycline AdvReac Intermediate NAUSEA/VOMI Verified 11/04/24 18:18 TING ondansetron [From Zofran] AdvReac nuchal Verified 11/04/24 18:18 dystonia Home Meds Home Medications Medication Instructions Recorded Confirmed cholecalciferol (vitamin D3) 25 1,000 unit PO Q OTHER DAY 12/05/17 11/04/24 mcg (1,000 unit) capsule (Vitamin D3) nitroglycerin 0.4 mg sublingual 0.4 mg sublingual DIRECTED PRN 12/05/17 11/04/24 tablet (Nitrostat) Chest Pain omeprazole 20 mg capsule,delayed 20 mg PO QAM PRN Gi Upset 12/05/17 11/04/24 release levothyroxine 100 mcg tablet 100 mcg PO DAILYBB 05/18/18 11/04/24 spironolactone 25 mg tablet 25 mg PO AMPM 12/31/19 11/04/24 citalopram 10 mg tablet 10 mg PO QAM 07/18/21 11/04/24 tramadol 50 mg tablet 50 mg PO Q6 PRN .severe 07/18/21 11/04/24 breakthrough pain azelastine 137 mcg (0.1 %) nasal 2 spray intranasal AMHS 08/02/21 11/04/24 spray valacyclovir 1 gram tablet 2,000 mg PO AMPM PRN Cold Sores 11/30/21 11/04/24 acetaminophen 500 mg tablet 500 mg PO Q6H PRN Pain 07/09/23 11/04/24 (Tylenol Extra Strength) albuterol sulfate 90 mcg/actuation 2 puff inhalation Q4H PRN 07/09/23 11/04/24 aerosol inhaler COUGH/SHORT OF BREATH/WHEEZING benzonatate 100 mg capsule 100 mg PO TID PRN cough 07/09/23 11/04/24 buprenorphine 5 mcg/hour weekly 5 mcg transdermal WK 07/09/23 11/04/24 transdermal patch empagliflozin 10 mg tablet 10 mg PO Q2D 07/09/23 11/04/24 (Jardiance) metoclopramide HCl 10 mg tablet 10 mg PO DAILYBB PRN Nausea 07/09/23 11/04/24 (Reglan) nystatin 100,000 unit/mL oral 5 ml mucous membrane QID PRN THRUSH 07/09/23 11/04/24 suspension metoprolol succinate 25 mg 25 mg PO QPM 05/12/24 11/04/24 tablet,extended release 24 hr rosuvastatin 10 mg tablet 10 mg PO QAM 06/10/24 11/04/24 Iron Infusions 1 dose IV Q6M 07/13/24 11/04/24 estradiol 0.01% (0.1 mg/gram) 1 appful vaginal 2XWK 07/15/24 11/04/24 vaginal cream ropinirole 2 mg tablet 2 mg PO HS 07/15/24 11/04/24 clindamycin phosphate 2 % vaginal 1 applic vaginal 2XWK 11/04/24 11/04/24 cream metolazone 2.5 mg tablet 2.5 mg PO .WEEKLY/UD 11/04/24 11/04/24 potassium chloride 10 mEq 20 meq PO TID 11/04/24 11/04/24 tablet,extended release torsemide 100 mg tablet 100 mg PO AMPM 11/04/24 11/04/24 warfarin 5 mg tablet 0 mg PO .UD/DAILY 11/04/24 11/04/24 Previous Rx's Medication Instructions Recorded folic acid 1 mg tablet 1 mg PO QAM #30 tabs 05/21/18 Incentive Spirometer #1 ea 09/05/21 Oxygen Home #1 ea 04/08/23 Oxygen Home #2 ea 05/03/23 metoprolol succinate 50 mg 50 mg PO QAM #30 tabs 07/14/23 tablet,extended release 24 hr ipratropium 20 mcg-albuterol 100 1 puff inhalation QID PRN 07/27/24 mcg/actuation mist for inhalation Shortness Of Breath #12 grams (Combivent Respimat) ipratropium 0.5 mg-albuterol 3 mg 3 ml inhalation QID PRN shortness 10/30/24 (2.5 mg base)/3 mL nebulization of breath or wheezing #1,080 mL soln Results & Data (ED) Vital Signs Vital Signs - 24 hr 11/04/24 14:06 11/04/24 14:11 11/04/24 14:30 Temperature 36.7 C Temperature Source Temporal Artery Scan Pulse Rate 94 H 56 L Pulse Rate from SpO2 Sensor Respiratory Rate 28 H Respiratory Effort / Characteristics Short of Breath Blood Pressure 102/61 Blood Pressure Mean 74 Pulse Oximetry 97 96 Oxygen Delivery Method Room Air Room Air Oxygen Flow Rate Sepsis Recent Fever Within 48 Hours No Sepsis New/Unexplained Change in Mental Status No Sepsis Action Taken by Nursing No Action Required Oxygen Flow Rate - Titration Pulse Oximetry Post Tiitration 11/04/24 14:34 11/04/24 15:00 11/04/24 15:00 Temperature Temperature Source Pulse Rate 56 L Pulse Rate from SpO2 Sensor 57 L Respiratory Rate 15 Respiratory Effort / Characteristics Blood Pressure 97/56 L Blood Pressure Mean 69 Pulse Oximetry 97 95 93 Oxygen Delivery Method Room Air Room Air Room Air Oxygen Flow Rate Sepsis Recent Fever Within 48 Hours Sepsis New/Unexplained Change in Mental Status Sepsis Action Taken by Nursing Oxygen Flow Rate - Titration 2 Pulse Oximetry Post Tiitration 95 11/04/24 15:30 11/04/24 16:00 11/04/24 16:30 Temperature Temperature Source Pulse Rate 53 L 79 57 L Pulse Rate from SpO2 Sensor 59 L Respiratory Rate 22 17 15 Respiratory Effort / Characteristics Blood Pressure 100/66 127/80 105/61 Blood Pressure Mean 78 95 75 Pulse Oximetry 100 99 100 Oxygen Delivery Method Nasal Cannula Room Air Room Air Oxygen Flow Rate 2 Sepsis Recent Fever Within 48 Hours Sepsis New/Unexplained Change in Mental Status Sepsis Action Taken by Nursing Oxygen Flow Rate - Titration Pulse Oximetry Post Tiitration 11/04/24 17:00 11/04/24 17:30 11/04/24 18:31 Temperature Temperature Source Pulse Rate 55 L 55 L 61 Pulse Rate from SpO2 Sensor 60 Respiratory Rate 18 16 24 Respiratory Effort / Characteristics Blood Pressure 109/60 96/56 L 121/69 Blood Pressure Mean 80 69 74 Pulse Oximetry 99 100 100 Oxygen Delivery Method Room Air Room Air Nasal Cannula Oxygen Flow Rate 2 Sepsis Recent Fever Within 48 Hours Sepsis New/Unexplained Change in Mental Status Sepsis Action Taken by Nursing Oxygen Flow Rate - Titration Pulse Oximetry Post Tiitration 11/04/24 18:35 Temperature Temperature Source Pulse Rate 62 Pulse Rate from SpO2 Sensor Respiratory Rate Respiratory Effort / Characteristics Blood Pressure Blood Pressure Mean Pulse Oximetry Oxygen Delivery Method Oxygen Flow Rate Sepsis Recent Fever Within 48 Hours Sepsis New/Unexplained Change in Mental Status Sepsis Action Taken by Nursing Oxygen Flow Rate - Titration Pulse Oximetry Post Tiitration Laboratory Data Attestation: I reviewed the patient's lab results. 11/04/24 14:50 11/04/24 14:50 Lab Results 11/04/24 11/04/24 11/04/24 Range/Units 14:15 14:50 15:55 WBC 5.44 (4.8-10.8) K/ul RBC 3.99 L (4.20-5.40) M/uL Hgb 11.3 L (12.0-16.0) g/dl Hct 36.0 L (37.0-47.0) % MCV 90.2 (80.0-100.0) fL MCH 28.3 (25.0-34.0) pg MCHC 31.4 L (32.0-36.0) g/dL RDW Std Deviation 60.6 H (36.4-46.3) fL RDW Coeff of Courtney 18.3 H (11.5-14.5) % Plt Count 141 (130-400) K/uL MPV 10.5 (9.4-12.4) fL Immature Gran % (Auto) 0.4 % Neut % (Auto) 69.4 % Lymph % (Auto) 12.3 % Carbon % (Auto) 14.7 % Eos % (Auto) 2.6 % Baso % (Auto) 0.6 % Neut # (Auto) 3.78 (1.40-6.50) K/uL Lymph # (Auto) 0.67 L (1.20-3.40) K/uL Carbon # (Auto) 0.80 H (0.11-0.59) K/uL Eos # (Auto) 0.14 (0.00-0.50) K/uL Baso # (Auto) 0.03 (0.00-0.20) K/uL Immature Gran # (Auto) 0.02 (0.01-0.20) K/uL PT 24.6 H (9.0-12.0) Seconds INR 2.5 H (0.9-1.1) VBG pH 7.38 (7.36-7.41) VBG pCO2 52 H (38-50) mmHg VBG pO2 68 mmHg VBG HCO3 31 mmol/L VBG O2 Saturation 94.8 % VBG Base Excess 4.4 mEq/L Sodium 133 L (136-145) mmol/L Potassium 3.9 (3.5-5.1) mmol/L Chloride 96 L (98-107) mmol/L Carbon Dioxide 28 (21-32) mmol/L Anion Gap 9 (3-11) BUN 35 H (6-23) mg/dl Creatinine 2.57 H (0.6-1.2) mg/dl Est Cr Clr Drug Dosing Not Reportable eGFR 19.40 BUN/Creatinine Ratio 13.6 (10-20) Glucose 115 H (70-99(Fasting)) mg/dl Calcium 9.7 (8.6-10.3) mg/dl Phosphorus 4.0 (2.5-4.9) mg/dl Magnesium 3.0 H (1.7-2.4) mg/dl Total Bilirubin 1.5 H (0.2-1.0) mg/dl AST 33 (13-39) U/L ALT 18 (7-52) U/L Alkaline Phosphatase 104 (34-104) U/L Ammonia 77.0 H (18-72) umol/L Troponin I High Sens 14.4 H (0-14) pg/ml B-Natriuretic Peptide 271 H (0-100) pg/ml Total Protein 7.0 (6.0-8.3) gm/dl Albumin 3.7 (3.4-5.0) gm/dl Globulin 3.3 (2.5-4.0) gm/dl Albumin/Globulin Ratio 1.1 (0.9-2) Lipase 24 (11-82) U/L Procalcitonin 0.25 (0-0.5) ng/ml TSH 2.038 (0.300-4.500) uIu/ml Urine Color Urine Appearance (Clear) Urine pH (4.5-7.5) Ur Specific [place] (1.000-1.030) Urine Protein (Negative) Urine Glucose (UA) (Negative) Urine Ketones (Negative) Urine Blood (Negative) Urine Nitrite (Negative) Urine Bilirubin (Negative) Urine Urobilinogen (Negative) Ur Leukocyte Esterase (Negative) Urine WBC (Auto) (0-5) /hpf Urine RBC (Auto) (0-2) /hpf U Hyaline Cast (Auto) (0-2) /lpf U Epithel Cells (Auto) (0-2) /hpf Urine Bacteria (Auto) (None Seen) Urine Comment 11/04/24 Range/Units 16:10 WBC (4.8-10.8) K/ul RBC (4.20-5.40) M/uL Hgb (12.0-16.0) g/dl Hct (37.0-47.0) % MCV (80.0-100.0) fL MCH (25.0-34.0) pg MCHC (32.0-36.0) g/dL RDW Std Deviation (36.4-46.3) fL RDW Coeff of Courtney (11.5-14.5) % Plt Count (130-400) K/uL MPV (9.4-12.4) fL Immature Gran % (Auto) % Neut % (Auto) % Lymph % (Auto) % Carbon % (Auto) % Eos % (Auto) % Baso % (Auto) % Neut # (Auto) (1.40-6.50) K/uL Lymph # (Auto) (1.20-3.40) K/uL Carbon # (Auto) (0.11-0.59) K/uL Eos # (Auto) (0.00-0.50) K/uL Baso # (Auto) (0.00-0.20) K/uL Immature Gran # (Auto) (0.01-0.20) K/uL PT (9.0-12.0) Seconds INR (0.9-1.1) VBG pH (7.36-7.41) VBG pCO2 (38-50) mmHg VBG pO2 mmHg VBG HCO3 mmol/L VBG O2 Saturation % VBG Base Excess mEq/L Sodium (136-145) mmol/L Potassium (3.5-5.1) mmol/L Chloride (98-107) mmol/L Carbon Dioxide (21-32) mmol/L Anion Gap (3-11) BUN (6-23) mg/dl Creatinine (0.6-1.2) mg/dl Est Cr Clr Drug Dosing eGFR BUN/Creatinine Ratio (10-20) Glucose (70-99(Fasting)) mg/dl Calcium (8.6-10.3) mg/dl Phosphorus (2.5-4.9) mg/dl Magnesium (1.7-2.4) mg/dl Total Bilirubin (0.2-1.0) mg/dl AST (13-39) U/L ALT (7-52) U/L Alkaline Phosphatase (34-104) U/L Ammonia (18-72) umol/L Troponin I High Sens (0-14) pg/ml B-Natriuretic Peptide (0-100) pg/ml Total Protein (6.0-8.3) gm/dl Albumin (3.4-5.0) gm/dl Globulin (2.5-4.0) gm/dl Albumin/Globulin Ratio (0.9-2) Lipase (11-82) U/L Procalcitonin (0-0.5) ng/ml TSH (0.300-4.500) uIu/ml Urine Color Yellow Urine Appearance Clear (Clear) Urine pH 6.5 (4.5-7.5) Ur Specific [place] 1.011 (1.000-1.030) Urine Protein 1+ H (Negative) Urine Glucose (UA) 1+ H (Negative) Urine Ketones Negative (Negative) Urine Blood 2+ H (Negative) Urine Nitrite Positive A (Negative) Urine Bilirubin Negative (Negative) Urine Urobilinogen Negative (Negative) Ur Leukocyte Esterase Trace H (Negative) Urine WBC (Auto) 11-20 H (0-5) /hpf Urine RBC (Auto) 0-2 (0-2) /hpf U Hyaline Cast (Auto) 0-2 (0-2) /lpf U Epithel Cells (Auto) 0-2 (0-2) /hpf Urine Bacteria (Auto) 4+ H (None Seen) Urine Comment Administered Medications Albuterol (Albuterol Hfa 8 Gm Inhaler) 2 puffs INH BIDR PRISCILA Stop: 12/04/24 21:46 Last Admin: 11/04/24 22:34 Dose: 2 puffs Documented By: JOSEP Albuterol (Albut/Ipratrop 3mg/0.5mg Neb 3 Ml Vial) 3 ml INH BIDR [facility]; Protocol Stop: 12/04/24 21:46 Last Admin: 11/04/24 22:08 Dose: Not Given Documented By: jun Azelastine HCl (Azelastine Hcl 0.1% Nasal 200 Sprays/27,400 Mcg Btl) 2 sprays NA AMHS PRISCILA Stop: 12/04/24 21:46 Last Admin: 11/04/24 22:34 Dose: 2 sprays Documented By: JOSEP Insulin Aspart (Insulin Aspart Per Unit Charge) 0 units SC ACHS PRISCILA Stop: 12/04/24 21:46 Last Admin: 11/04/24 22:51 Dose: Not Given Documented By: JOSEP Lactulose (Lactulose Syrup 20 Gm/30 Ml Udc) 20 gm PO BID [facility] Stop: 12/04/24 20:59 Last Admin: 11/04/24 21:16 Dose: 20 gm Documented By: DAHIANA Metoprolol Succinate (Metoprolol Succ 25mg Ext Rel Tab) 25 mg PO QPM PRISCILA Stop: 12/04/24 21:46 Last Admin: 11/04/24 22:36 Dose: 25 mg Documented By: JOSEP Miscellaneous (Check Buprenorphine Patch) 1 each N/A QS PRISCILA Stop: 12/04/24 21:59 Last Admin: 11/04/24 22:36 Dose: 1 each Documented By: JOSEP Potassium Chloride (Potassium Chloride 10 Meq Tabcr) 20 meq PO TID PRISCILA Stop: 12/04/24 21:46 Last Admin: 11/04/24 22:35 Dose: 20 meq Documented By: JOSEP Ropinirole HCl (Ropinirole Hcl 2 Mg Tablet) 2 mg PO HS PRISCILA Stop: 12/04/24 21:46 Last Admin: 11/04/24 22:35 Dose: 2 mg Documented By: JOSEP Spironolactone (Spironolactone 25 Mg Tab) 25 mg PO BID17 [facility] Stop: 12/04/24 21:46 Last Admin: 11/04/24 22:36 Dose: 25 mg Documented By: JOSEP Torsemide (Torsemide 100 Mg Tab) 100 mg PO BID17 [facility] Stop: 12/04/24 21:46 Last Admin: 11/04/24 22:35 Dose: 100 mg Documented By: JOSEP Discontinued Medications Ceftriaxone Sodium (Rocephin) 2,000 mg in 50 mls @ 100 mls/hr IV NOW STA Stop: 11/04/24 17:36 Last Infusion: 11/04/24 21:03 Dose: Infused Documented By: Admin: 11/04/24 18:06 Dose: 100 mls/hr Documented By: ELIUD Bumetanide 4 mg/ Syringe 16 mls @ 4 mls/min IV ONE ONE Stop: 11/04/24 17:10 Last Admin: 11/04/24 19:01 Dose: Not Given Documented By: ELIUD Warfarin Sodium (Warfarin Sod 5 Mg Tab) 5 mg PO NOW ONE Stop: 11/04/24 19:00 Last Admin: 11/04/24 19:44 Dose: 5 mg Documented By: DAHIANA Imaging Data Radiologist's Impression: Chest X-Ray 11/04/24 14:34 SINGLE VIEW CHEST CLINICAL HISTORY: Generalized weakness. FINDINGS: An AP, portable, upright chest radiograph is compared to study dated 07/15/2024. Correlation is made with chest CT dated 07/08/2023. An electronic device projects over the left lower chest. The patient is status post midline sternotomy and cardiac valve surgery. The heart is markedly enlarged. There is mild pulmonary vascular congestion. No large pleural effusion or pneumothorax is seen. Atelectasis is noted at the lung bases. Question mild patchy airspace opacities in the right upper lung. The skeletal structures are osteopenic. The bony thorax is grossly intact. IMPRESSION: 1. Marked cardiomegaly with pulmonary vascular congestion. 2. Question mild airspace opacities in the right upper lung. Mild edema or a mild pneumonitis is not excluded. Clinical correlation will be required and radiographic follow-up to resolution is recommended. ACT 112: Negative or not required by law. Electronically signed by: Roberto Carlos Blandon M.D. 11/04/2024 3:[address] 11/04/24 18:59 Clinical History: Lethargy Technique: Axial computed tomography images were obtained of the brain from the vertex to the skull base without intravenous contrast. Comparison is made to the prior CT dated 04/21/2021 Findings: There is no sign of intracranial hemorrhage. There are suspected small old infarcts of the cerebellar hemispheres. No clear acute infarct is seen. No midline shift or other form of herniation is identified. There is no hydrocephalus. No obvious mass lesion is seen on this noncontrast examination. The visualized portions of the orbits and paranasal sinuses appear unremarkable. The mastoid air cells appear clear Impression: No definite acute pathology Electronically signed by Kaden Pacheco 11-04-2024 7:31 PM Liver Ultrasound 11/04/24 18:59 Exam(s): US LIVER EXAM: US Abdomen Limited CLINICAL HISTORY: Reason for exam: hyperammonemia. TECHNIQUE: Real-time ultrasound of the abdomen with image documentation. COMPARISON: No relevant prior studies available. FINDINGS: Liver: Intra and extrahepatic biliary ductal dilatation. Common bile duct measures 6.5 mm. Pancreatic duct is also mildly dilated measuring 2. 1 mm. Liver has a heterogeneous coarsened echotexture. Gallbladder: Gallbladder surgically absent. Kidneys: Unremarkable. No stones. No hydronephrosis. Right kidney measures 9.8 cm. Other vasculature: Main portal vein is patent but appears to have to and fro flow. IMPRESSION: Expected intra and extrahepatic biliary ductal dilatation given the patient's history of prior cholecystectomy Liver has a heterogeneous echotexture suggesting hepatic cirrhosis Portal vein is patent but suggest portal hypertension. Electronically signed by: Henrik Pearson MD 11/05/24 00:01 AM Discharge Plan Visit Data Chief Complaint: Lethargic Stated Complaint: LETHARGIC, WEIGHT GAIN, LEG PAIN ED Provider: Deandre Kumar Discharge Problem: UTI (urinary tract infection), CHF (congestive heart failure), Hyperammonemia Patient Disposition: Admitted As Inpatient Condition: Fair Discharge Instructions Interventions: ED Discharge Assessment Last Done: 11/04/24 21:22 Discharge Problem: UTI (urinary tract infection) Qualifiers: Urinary tract infection type: acute cystitis Hematuria presence: with hematuria Qualified Code(s): N30.01 - Acute cystitis with hematuria CHF (congestive heart failure) Qualifiers: Heart failure type: unspecified Heart failure chronicity: acute on chronic Q ualified Code(s): I50.9 - Heart failure, unspecified
[2024-11-04 15:07] LABS: Base Excess VBG 4.4 mEq/L; HCO3 VBG 31 mmol/L; Oxygen Saturation VBG 94.8 %; PCO2 VBG 52 mmHg (38-50); PO2 VBG 68 mmHg; pH VBG 7.38 (7.36-7.41)
[2024-11-04 15:14] LABS: Hematocrit (blood only) 36.0 % (37.0-47.0); Hemoglobin 11.3 g/dl (12.0-16.0); Immature Granulocytes # (auto) 0.02 K/uL (0.01-0.20); Immature Granulocytes % (auto) 0.4 %; Mean Corpuscular Hemoglobin 28.3 pg (25.0-34.0); Mean Corpuscular Volume 90.2 fL (80.0-100.0); Platelet Count 141 K/uL (130-400); RDW Standard Deviation 60.6 fL (36.4-46.3); Red Blood Count 3.99 M/uL (4.20-5.40); White Blood Count 5.44 K/ul (4.8-10.8)
--- NOTE | 2024-11-04 15:20 | XRay Report ---
SINGLE VIEW CHEST CLINICAL HISTORY: Generalized weakness. FINDINGS: An AP, portable, upright chest radiograph is compared to study dated 07/15/2024. Correlation is made with chest CT dated 07/08/2023. An electronic device projects over the left lower chest. The patient is status post midline sternotomy and cardiac valve surgery. The heart is markedly enlarged. There is mild pulmonary vascular congestion. No large pleural effusion or pneumothorax is seen. Atele ctasis is noted at the lung bases. Question mild patchy airspace opacities in the right upper lung. T he skeletal structures are osteopenic. The bony thorax is grossly intact. IMPRESSION: 1. Marked cardiomegaly with pulmonary vascular congestion. 2. Question mild airspace opacities in the right upper lung. Mild edema or a mild pneumonitis is not excluded. Clinical correlation will be required and radiographic follow-up to resolution is recommend ed. ACT 112: Negative or not required by law. Electronically signed by: Roberto Carlos Blandon M.D. 11/04/2024 3:19 PM
[2024-11-04 15:31] LABS: Alanine Aminotransferase 18 U/L (7-52); Albumin Globulin Ratio 1.1 (0.9-2); Alkaline Phosphatase 104 U/L (34-104); Anion Gap 9 (3-11); Bilirubin,Total 1.5 mg/dl (0.2-1.0); Blood Urea Nitrogen 35 mg/dl (6-23); Calcium 9.7 mg/dl (8.6-10.3); Carbon Dioxide 28 mmol/L (21-32); Chloride 96 mmol/L (98-107); Globulin 3.3 gm/dl (2.5-4.0); Glucose 115 mg/dl (70-99(Fasting)); Lipase 24 U/L (11-82); Magnesium 3.0 mg/dl (1.7-2.4); Potassium 3.9 mmol/L (3.5-5.1); Sodium 133 mmol/L (136-145); Total Protein 7.0 gm/dl (6.0-8.3)
[2024-11-04 15:42] LABS: INR 2.5 (0.9-1.1); Prothrombin Time 24.6 Seconds (9.0-12.0)
[2024-11-04 15:46] LABS: Thyroid Stimulating Hormone 2.038 uIu/ml (0.300-4.500)
[2024-11-04 16:30] LABS: Appearance Urine Clear (Clear); Bacteria Urine Automated 4+ (None Seen); Cast Urine Automated 0-2 /lpf (0-2); Epithelial Cell Urine Auto 0-2 /hpf (0-2); Glucose Urine UA 1+ (Negative); RBC Urine Automated 0-2 /hpf (0-2)
--- NOTE | 2024-11-04 17:37 | History & Physical Report ---
Date of Service November 04, 2024 Assessment & Plan (1) Acute on chronic heart failure with preserved ejection fraction (HFpEF): (2) Severe tricuspid valve insufficiency: (3) Acute kidney injury superimposed on chronic kidney disease: (4) UTI (urinary tract infection): (5) A-fib: (6) Restrictive lung disease: (7) Nocturnal hypoxia: (8) Diabetes: (9) Hyperlipidemia: (10) Hypothyroidism: (11) Chronic pain: Plan 68 year old female with PMH significant for chronic diastolic heart failure (EF 60% April 2024), permanent A fib, severe TR status post recent Triclip procedure (Feb 2024), s/p LOOP (Mar 2021), rheumatic heart disease s/p mechanical MVR (1993) on Coumadin, HTN, HLD, DMII, CKD IV, COPD, restrictive lung disease, nocturnal hypoxia, hypothyroidism, depression/anxiety, RLS, chronic pain, and esophageal dysmotility who presents to the ED on 11/04/2024 with lethargy and weight gain. Acute on chronic diastolic heart failure Patient presenting with lethargy and weight gain CXR revealed marked cardiomegaly with pulmonary vascular congestion; question mild airspace opacities in right upper lung not excluding mild edema or mild pneumonitis BNP 271 On baseline O2 requirement of 2L while sleeping and BPs on softer side so will hold off on IV diuretics at this time Continue home torsemide (and potassium supplement) and spironolactone Reassess fluid status in am and consider IV diuretics if BPs can tolerate it Daily weights and monitor I&Os Low sodium diet and 2L FR 07/14/24 echo: EF: 60-64%, LV wall motion normal, left atrium severely enlarged, right atrium severely enlarged, moderate aortic valve sclerosis, mild aortic regurgitation, mitral valve central disc mechanical prostheses with surrounding heavy pannus but preserved leaflet mobility elevated transvalvular velocity and gradient. Doppler reveals mitral regurgitation through the orifice of the prostetic valve that is physiologic (normal). TriClip XTW device is visualized. Severe tricuspid regurgitation. pulmonary artery systolic pressure is 40mm Hg. Lethargic Hyperammonemia Patient lethargic likely secondary to UTI but also found to have hyperammonemia Ongoing confusion in outpatient setting with no ischemic changes on head CT on 09/30/[address] Obtain liver ultrasound (previous CTAP with no liver abnormalities in May) Start lactulose Consult GI: appreciate recs VICKY on CKD IV Cr: 2.57. Baseline ~2.0 Avoid nephrotoxic agents as able Nephrology consult: appreciate recs UTI History of recurrent UTIs in setting of Jardiance UA+ nitrites, leuk esterase, WBC, bacteria Received ceftriaxone in ED - continue Follow urine culture Permanent atrial fibrillation Anticoagulated on Warfarin INR 2.5 today - goal is 3-3.5 Give warfarin 5mg today and recheck INR in am Rate controlled - continue metoprolol Restrictive lung disease Nocturnal hypoxia Continue duonebs bid and inhalers daily Continue 2L oxygen HS Hyperlipidemia, history of TIA Continue statin Type 2 diabetes A1C 7.4 in August 2024 Home Jardiance on hold BSG ACHS and SSI while inpatient Chronic pain Continue buprenorphine patch Hold home tramadol in setting of lethargy Anxiety Continue citalopram Hypothyroidism Continue levothyroxine GERD Continue PPI RLS Continue ropinirole DVT Prophylaxis: on warfarin Code Status: FULL CODE - As per discussion at bedside with the patient. PCP: Lesia Simmons Disposition: admit to PCU Patient seen in collaboration with Dr German. Please see addendum. I spent a total of 75 minutes coordinating, documenting and providing care for this patient excluding time spent in the performance of separately billed services or time spent by another provider/QHP. Admission and Anticipated Discharge Date Admission Date: 11/04/2024 History of Present Illness Chief Complaint: lethargy and weight gain Primary Care Provider: Lesia English MD 68 year old female with PMH significant for chronic diastolic heart failure (EF 60% April 2024), permanent A fib, severe TR status post recent Triclip procedure (Feb 2024), s/p LOOP (Mar 2021), rheumatic heart disease s/p mechanical MVR (1993) on Coumadin, HTN, HLD, DMII, CKD IV, COPD, restrictive lung disease, nocturnal hypoxia, hypothyroidism, depression/anxiety, RLS, chronic pain, and esophageal dysmotility who presents to the ED on 11/04/2024 with lethargic and weight gain. History obtained from patient's caregiver and cousin, Moris, as patient cannot stay awake to provide history. He reports the patient has been more confused than lately since the weekend with increasing lethargy to the point where she cannot stay awake for more than a few minutes. He reports that patient has been confused over the last several weeks in correlation with recurrent UTIs since being started on Jardiance. He reports she has had four UTIs so far this year. He notes she had an outpatient head CT that showed age related changes but nothing else abnormal. Also reports weight gain despite increasing doses of diuretics. She takes metolazone once weekly and had it last on 10/30 and since then her weight has continued to increase despite 7-8L of output daily. Also notes blood pressures on the softer side around 90/60 when her baseline is typically 100-115/60. Denies fevers, chills, cough, congestion, chest pain, SOB, abdominal pain, N/V/D. Allergies Allergy/AdvReac Type Severity Reaction Status Date / Time budesonide Allergy Severe could not Verified 11/04/24 18:17 breath enoxaparin [From Lovenox] Allergy Unknown ON Verified 11/04/24 18:17 [facility] hydroxyzine AdvReac Severe DYSTONIA Verified 11/04/24 18:17 prochlorperazine AdvReac Severe NUCHAL Verified 11/04/24 18:17 DYSTONIA promethazine AdvReac Severe NUCHAL Verified 11/04/24 18:17 DYSTONIA PERRY Inhibitors AdvReac Intermediate COUGH Verified 11/04/24 18:17 gabapentin AdvReac Intermediate CONFUSION/D Verified 11/04/24 18:17 ROWSY lisinopril AdvReac Intermediate Cough Verified 11/04/24 18:17 metformin AdvReac Intermediate DIARRHEA Verified 11/04/24 18:17 oxycodone AdvReac Intermediate NUMB ALL Verified 11/04/24 18:17 OVER parsley AdvReac Intermediate AGITATION Verified 11/04/24 18:18 tetracycline AdvReac Intermediate NAUSEA/VOMI Verified 11/04/24 18:18 TING ondansetron [From Zofran] AdvReac nuchal Verified 11/04/24 18:18 dystonia Home Medications Medication Instructions Recorded Confirmed Type cholecalciferol (vitamin D3) 25 1,000 unit PO Q OTHER DAY 12/05/17 11/04/24 History mcg (1,000 unit) capsule (Vitamin D3) nitroglycerin 0.4 mg sublingual 0.4 mg sublingual DIRECTED PRN 12/05/17 11/04/24 History tablet (Nitrostat) Chest Pain omeprazole 20 mg capsule,delayed 20 mg PO QAM PRN Gi Upset 12/05/17 11/04/24 History release levothyroxine 100 mcg tablet 100 mcg PO DAILYBB 05/18/18 11/04/24 History folic acid 1 mg tablet 1 mg PO QAM #30 tabs 05/21/18 11/04/24 Rx spironolactone 25 mg tablet 25 mg PO AMPM 12/31/19 11/04/24 History citalopram 10 mg tablet 10 mg PO QAM 07/18/21 11/04/24 History tramadol 50 mg tablet 50 mg PO Q6 PRN .severe 07/18/21 11/04/24 History breakthrough pain azelastine 137 mcg (0.1 %) nasal 2 spray intranasal AMHS 08/02/21 11/04/24 History spray Incentive Spirometer #1 ea 09/05/21 07/15/24 Rx valacyclovir 1 gram tablet 2,000 mg PO AMPM PRN Cold Sores 11/30/21 11/04/24 History Oxygen Home #1 ea 04/08/23 07/15/24 Rx Oxygen Home #2 ea 05/03/23 07/15/24 Rx acetaminophen 500 mg tablet 500 mg PO Q6H PRN Pain 07/09/23 11/04/24 History (Tylenol Extra Strength) albuterol sulfate 90 mcg/actuation 2 puff inhalation Q4H PRN 07/09/23 11/04/24 History aerosol inhaler COUGH/SHORT OF BREATH/WHEEZING benzonatate 100 mg capsule 100 mg PO TID PRN cough 07/09/23 11/04/24 History buprenorphine 5 mcg/hour weekly 5 mcg transdermal WK 07/09/23 11/04/24 History transdermal patch empagliflozin 10 mg tablet 10 mg PO Q2D 07/09/23 11/04/24 History (Jardiance) metoclopramide HCl 10 mg tablet 10 mg PO DAILYBB PRN Nausea 07/09/23 11/04/24 History (Reglan) nystatin 100,000 unit/mL oral 5 ml mucous membrane QID PRN THRUSH 07/09/23 11/04/24 History suspension metoprolol succinate 50 mg 50 mg PO QAM #30 tabs 07/14/23 11/04/24 Rx tablet,extended release 24 hr metoprolol succinate 25 mg 25 mg PO QPM 05/12/24 11/04/24 History tablet,extended release 24 hr rosuvastatin 10 mg tablet 10 mg PO QAM 06/10/24 11/04/24 History Iron Infusions 1 dose IV Q6M 07/13/24 11/04/24 History estradiol 0.01% (0.1 mg/gram) 1 appful vaginal 2XWK 07/15/24 11/04/24 History vaginal cream ropinirole 2 mg tablet 2 mg PO HS 07/15/24 11/04/24 History ipratropium 20 mcg-albuterol 100 1 puff inhalation QID PRN 07/27/24 11/04/24 Rx mcg/actuation mist for inhalation Shortness Of Breath #12 grams (Combivent Respimat) ipratropium 0.5 mg-albuterol 3 mg 3 ml inhalation QID PRN shortness 10/30/24 11/04/24 Rx (2.5 mg base)/3 mL nebulization of breath or wheezing #1,080 mL soln clindamycin phosphate 2 % vaginal 1 applic vaginal 2XWK 11/04/24 11/04/24 History cream metolazone 2.5 mg tablet 2.5 mg PO .WEEKLY/UD 11/04/24 11/04/24 History potassium chloride 10 mEq 20 meq PO TID 11/04/24 11/04/24 History tablet,extended release torsemide 100 mg tablet 100 mg PO AMPM 11/04/24 11/04/24 History warfarin 5 mg tablet 0 mg PO .UD/DAILY 11/04/24 11/04/24 History Past Med/Surg History Problem List (Updated 11/04/24 @ 17:47 by SOFI Marques) Nocturnal hypoxia Cellulitis of left lower extremity Acute on chronic heart failure with preserved ejection fraction (HFpEF) Severe tricuspid valve insufficiency Bilateral edema of lower extremity (Acute) Fatigue (Acute) Dyspnea (Acute) Complicated UTI (urinary tract infection) Postmenopausal postcoital bleeding Vaginal atrophy Supratherapeutic INR (Acute) Vagina bleeding (Acute) Elevated troponin (Acute) Substernal chest pain (Acute) Depression Elevated troponin Esophageal dysmotility Chronic pain COPD (chronic obstructive pulmonary disease) Chest pain Acute kidney injury superimposed on chronic kidney disease (Acute) Acute exacerbation of CHF (congestive heart failure) (Acute) Restrictive lung disease CHF (congestive heart failure) (Acute) Cough (Acute) Acute dyspnea (Acute) Acute foot pain (Acute) Supratherapeutic INR (Acute) Exertional shortness of breath Upper airway cough syndrome Chronic cough Occult blood positive stool H/O mitral valve replacement with mechanical valve Rheumatic heart disease Permanent atrial fibrillation History of CVA (cerebrovascular accident) Chronic diastolic CHF (congestive heart failure) Nontraumatic intramuscular hematoma Hematoma of left thigh (Acute) Mechanical heart valve present (Acute) Encounter for pre-operative examination Asthmatic bronchitis Acute bronchitis Pleural effusion Abnormal chest CT Dysphagia Pneumonia Acute on chronic diastolic HF (heart failure) Shortness of breath (Acute) Atypical chest pain (Acute) Hypoxia (Acute) Chronic heart failure with preserved ejection fraction (HFpEF) History of loop recorder Recurrent syncope Syncope (Acute) UTI (urinary tract infection) DVT prophylaxis Hypothyroidism CKD (chronic kidney disease), stage III Recurrent syncope (Acute) Contusion of scalp (Acute) Hypokalemia (Acute) Dehydration (Acute) Substernal chest pain (Acute) Elevated INR (Acute) Status post total right knee replacement Knee pain Tricompartment degenerative joint disease of knee Knee effusion, left (Acute) A-fib (Chronic) Mitral valve replaced (Chronic) Hemangioma (Acute) Syncope (Acute) Closed head injury (Acute) Forehead laceration (Acute) Burn of hand, right (Acute) VICKY (acute kidney injury) (Acute) Pre-syncope Acute renal failure Severe protein-calorie malnutrition Gant classified according to extent of body surface involved Atrial fibrillation Coronary artery disease Mechanical heart valve present History of CVA (cerebrovascular accident) Diabetes type 2, controlled Hypothyroidism DVT prophylaxis Discharge planning issues Hematoma Rheumatic disease of heart valve H/O mitral valve replacement with mechanical valve Leg edema Post-concussion headache Slurred speech (Acute) Numbness (Acute) Encounter for pre-operative examination Degenerative joint disease of left knee Acute blood loss as cause of postoperative anemia DVT prophylaxis S/P TKR (total knee replacement) Pain, joint, knee, left Hemarthrosis involving knee joint Discharge planning issues Anemia chronic; baseline hgb 9-10 range per chart review Medical History History of blood transfusion autologous s/p MVR (1993), 09/2018 (post-op) A-fib 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 migraine vs. stress related)-- plavix since discontinued Anxiety Restless legs syndrome Migraines Diabetes diet controlled HTN (hypertension) Surgical History History of cardiac cath 2000= NO STENTS History of total left knee replacement History of colonoscopy Hx of tubal ligation Hx of appendectomy History of tonsillectomy and adenoidectomy Hx of cholecystectomy Hx of mitral valve replacement 1993 (rheumatic valvular disease) H/O: hysterectomy H/O radioactive iodine thyroid ablation Family History Uncle , of [place] in his 40s Coronary heart disease Social History Smoking Status: Never smoker Second Hand Exposure: No; Do You Dip or Chew Tobacco: No; Hx Alcohol Use: Yes Alcohol type: wine Hx Substance Use: No Preferred Language: Israeli Communication Ability: Effective Communication Ability Comment: speech impediment, easily understood Pellet Press Operator Required: No Beliefs That Will Affect Care: None marital status: Single Current Living Situation: Alone Current Living Situation Comment: cousin/caregiver lives next door current occupational status: disabled How many Children do You have: 0 Feels Safe at Home: Yes Assistive Devices: Glasses, Oxygen - at Night, Walker and Other Review of Systems Review of Systems: All systems reviewed & are unremarkable except as noted in HPI & below Physical Exam Physical Exam: General/Psych: ill appearing, sitting up in bed, NAD, lethargic and unable to stay awake Head: normocephalic, atraumatic Eyes: normal inspection, PERRL, conjunctivae pink ENT: external ear and nose normal, oropharynx normal Neck: normal visual inspection, trachea midline Respiratory: normal respiratory effort, lungs diminished with crackles appreciated in right base, no accessory muscle use Cardiovascular: regular rate and rhythm, +murmur, +click, no JVD Extremities: no cyanosis or clubbing, normal peripheral pulses, trace BLE edema Abdomen/GI: normal bowel sounds, soft, nontender, no hepatosplenomegaly Neurologic/MSK: A+Ox3, moves all extremities Skin: BLE with chronic venous stasis changes, blister to LLE with dressing c/d/i Results & Data Results & Data Vital Signs (Past 12 Hours) Vital Signs Temp Pulse Resp BP Pulse Ox O2 Del Method O2 Flow Rate 11/04/24 17:30 55 L 16 96/56 L 100 Room Air 11/04/24 17:00 55 L 18 109/60 99 Room Air 11/04/24 16:30 57 L 15 105/61 100 Room Air 11/04/24 16:00 79 17 127/80 99 Room Air 11/04/24 15:30 53 L 22 100/66 100 Nasal Cannula 2 11/04/24 15:00 56 L 15 97/56 L 93 Room Air 11/04/24 15:00 95 Room Air 11/04/24 14:34 97 Room Air 11/04/24 14:30 56 L 11/04/24 14:11 96 Room Air 11/04/24 14:06 36.7 C 94 H 28 H 102/61 97 Room Air Laboratory Results Short CBC 11/04/24 Range/Units 14:50 WBC 5.44 (4.8-10.8) K/ul Hgb 11.3 L (12.0-16.0) g/dl Hct 36.0 L (37.0-47.0) % Plt Count 141 (130-400) K/uL BMP 11/04/24 14:50 Sodium 133 L Potassium 3.9 Chloride 96 L Carbon Dioxide 28 BUN 35 H Creatinine 2.57 H Glucose 115 H Calcium 9.7 Liver Function 11/04/24 Range/Units 14:50 Total Bilirubin 1.5 H (0.2-1.0) mg/dl AST 33 (13-39) U/L ALT 18 (7-52) U/L Alkaline Phosphatase 104 (34-104) U/L Albumin 3.7 (3.4-5.0) gm/dl Urine 11/04/24 Range/Units 16:10 Urine Color Yellow Urine Appearance Clear (Clear) Urine pH 6.5 (4.5-7.5) Ur Specific Occidental 1.011 (1.000-1.030) Urine Protein 1+ H (Negative) Urine Glucose (UA) 1+ H (Negative) I have independently reviewed and interpreted patient's admitting labs including CBC, CMP, PTT, PT/INR, mag, troponin, VBG, ammonia, BNP, lipase, TSH, UA Diagnostic Findings Chest X-Ray 11/04/24 14:34 SINGLE VIEW CHEST CLINICAL HISTORY: Generalized weakness. FINDINGS: An AP, portable, upright chest radiograph is compared to study dated 07/15/2024. Correlation is made with chest CT dated 07/08/2023. An electronic device projects over the left lower chest. The patient is status post midline sternotomy and cardiac valve surgery. The heart is markedly enlarged. There is mild pulmonary vascular congestion. No large pleural effusion or pneumothorax is seen. Atelectasis is noted at the lung bases. Question mild patchy airspace opacities in the right upper lung. The skeletal structures are osteopenic. The bony thorax is grossly intact. IMPRESSION: 1. Marked cardiomegaly with pulmonary vascular congestion. 2. Question mild airspace opacities in the right upper lung. Mild edema or a mild pneumonitis is not excluded. Clinical correlation will be required and radiographic follow-up to resolution is recommended. ACT 112: Negative or not required by law. Electronically signed by: Roberto Carlos Blandon M.D. 11/04/2024 3:19 PM ECG Additional Comments: I have independently reviewed and interpreted patient's admitting EKG which revealed: sinus bradycardia at a rate of 54 bpm Code Status & VTE Plan Code Status Full Code Supervising Physician Co-Signing Physician Notes Attending Addendum: Case reviewed with the advanced practitioner. I have personally performed a history and physical examination on the patient. I have reviewed the advanced practitioner's documentation on the date of service referenced in note, and I agree with, and take responsibility for the plan of care. please refer to her notes for full details patient seen and examined, records reviewed by myself as well on exam, patient seen resting in bed, awake, alert, oriented x 3, answering questions appropriately states she feels ok overall- would like Farxiga to be discontinued due to recurrent UTIs no chest pain, dyspnea, palpitations, dizziness denies abdominal pain, nausea denies cough, fever/chills no other symptoms VS noted and reviewed oriented x3, not in distress, speaks in sentences with no effort nor accessory muscle use normal rate, regular rhythm, no murmurs mild rales at the bases L>R non distended, soft, nontender grade 1 BL lower extremity edema, no erythema, warmth (+) small superficial wound L anterior murphy- no signs of infection no neuro deficits all labs, imaging noted and reviewed ASSESSMENT AND PLAN> LETHARGY, POSSIBLE ETIOLOGIES: VICKY ON CKD ELEVATED AMMONIA R/O UTI CT head: pending hold tramadol monitor while on usual Buprenorphine no history of cirrhosis obtain liver US start Lactulose GI consulted ff up cultures empiric Ceftriaxone other work up done: ABG: no hypercapnea CHRONIC CHF, DIASTOLIC Crea mildly elevated CXR mild vascular congestion BNP 200s continue usual PO diuretics cautiously Cardiology consult other diagnoses and plan of care as per advanced practitioner's notes I spent a total of 40 minutes coordinating, documenting, and providing care for this patient, excluding time spent in the performance of separately billed services or time spent by another provider/QHP. Abdi German MD (5) A-fib Atrial fibrillation type: longstanding persistent Qualified Code(s): I48.11 - Longstanding persistent atrial fibrillation (8) Diabetes Diabetes mellitus complication status: without complication Diabetes mellitus custodial insulin use: without custodial use Diabetes mellitus type: type 2 Qualified Code(s): E11.9 - Type 2 diabetes mellitus without complications (9) Hyperlipidemia Hyperlipidemia type: unspecified Qualified Code(s): E78.5 - Hyperlipidemia, unspecified (10) Hypothyroidism Hypothyroidism type: postablative Qualified Code(s): E89.0 - Postprocedural hypothyroidism
[2024-11-04] MEDS: cefTRIAXone SODIUM 2,000 MG/50 ML BAG IV STA (18:06)
[2024-11-04] MEDS: BUMETANIDE 4 MG in SYRINGE 0 ML IV ONE (19:01)
--- NOTE | 2024-11-04 19:32 | CT Scan Report ---
Clinical History: Lethargy Technique: Axial computed tomography images were obtained of the brain from the vertex to the skull base without intravenous contrast. Comparison is made to the prior CT dated 04/21/2021 Findings: There is no sign of intracranial hemorrhage. There are suspected small old infarcts of the cerebellar hemispheres. No clear acute infarct is seen. No midline shift or other form of herniation is identified. There is no hydrocephalus. No obvious mass lesion is seen on this noncontrast examination. The visualized portions of the orbits and paranasal sinuses appear unremarkable. The mastoid air cells appear clear Impression: No definite acute pathology Electronically signed by Kaden Pacheco 11-04-2024 7:31 PM
[2024-11-04] MEDS: WARFARIN SOD 5 MG TAB PO ONE (19:44)
[2024-11-04] MEDS: LACTULOSE SYRUP 20 GM/30 ML UDC PO SCH (21:16)
[2024-11-04] MEDS ORDERED: CARBOHYDRATES FOR HYPOGLYCEMIA PO PRN (21:47)
[2024-11-04] MEDS ORDERED: WARFARIN SOD 5 MG TAB PO SCH (21:47)
[2024-11-04] MEDS ORDERED: ONDANSETRON INJ 2 MG/ML 2 ML VIAL IV PRN (21:47)
[2024-11-04] MEDS ORDERED: GLUCOSE 10 TAB/TUBE PO PRN (21:47)
[2024-11-04] MEDS ORDERED: GLUCOSE 40% GEL 15 GM TUBE PO PRN (21:47)
[2024-11-04] MEDS ORDERED: DEXTROSE 50% 50 ML SYRINGE IV PRN (21:47)
[2024-11-04] MEDS ORDERED: GLUCAGON FOR INJ 1 MG VIAL SQ PRN (21:47)
[2024-11-04] MEDS: ALBUT/IPRATROP 3MG/0.5MG NEB 3 ML VIAL INH SCH (22:08)
[2024-11-04] MEDS ORDERED: LIDOCAINE 2% JELLY 5 ML TUBE EXT PRN (22:24)
[2024-11-04] MEDS: AZELASTINE HCL 0.1% NASAL 200 SPRAYS/27,400 MCG BTL SCH (22:34)
[2024-11-04] MEDS: ALBUTEROL HFA 8 GM INHALER INH SCH (22:34)
[2024-11-04] MEDS: POTASSIUM CHLORIDE 10 MEQ TABCR PO SCH (22:35)
[2024-11-04] MEDS: TORSEMIDE 100 MG TAB PO SCH (22:35)
[2024-11-04] MEDS: CHECK BUPRENORPHINE PATCH SCH (22:36)
[2024-11-04] MEDS: METOPROLOL SUCC 25MG EXT REL TAB PO SCH (22:36)
[2024-11-04] MEDS: SPIRONOLACTONE 25 MG TAB PO SCH (22:36)
[2024-11-04] MEDS: INSULIN ASPART PER UNIT CHARGE SC SCH (22:51)
--- NOTE | 2024-11-05 00:02 | Ultrasound Report ---
Exam(s): US LIVER EXAM: US Abdomen Limited CLINICAL HISTORY: Reason for exam: hyperammonemia. TECHNIQUE: Real-time ultrasound of the abdomen with image documentation. COMPARISON: No relevant prior studies available. FINDINGS: Liver: Intra and extrahepatic biliary ductal dilatation. Common bile duct measures 6.5 mm. Pancreatic duct is also mildly dilated measuring 2. 1 mm. Liver has a heterogeneous coarsened echotexture. Gallbladder: Gallbladder surgically absent. Kidneys: Unremarkable. No stones. No hydronephrosis. Right kidney measures 9.8 cm. Other vasculature: Main portal vein is patent but appears to have to and fro flow. IMPRESSION: Expected intra and extrahepatic biliary ductal dilatation given the patient's history of prior cholecystectomy Liver has a heterogeneous echotexture suggesting hepatic cirrhosis Portal vein is patent but suggest portal hypertension. Electronically signed by: Henrik Pearson MD 11/05/24 00:01 AM
[2024-11-05 06:16] LABS: Hematocrit (blood only) 35.7 % (37.0-47.0); Hemoglobin 11.4 g/dl (12.0-16.0); Mean Corpuscular Hemoglobin 29.0 pg (25.0-34.0); Mean Corpuscular Volume 90.8 fL (80.0-100.0); Platelet Count 132 K/uL (130-400); RDW Standard Deviation 60.7 fL (36.4-46.3); Red Blood Count 3.93 M/uL (4.20-5.40); White Blood Count 5.46 K/ul (4.8-10.8)
[2024-11-05] MEDS: LEVOTHYROXINE SODIUM 100 MCG TABLET PO SCH (06:31)
[2024-11-05 06:35] LABS: Alanine Aminotransferase 17.0 U/L (7-52); Albumin Globulin Ratio 1.1 (0.9-2); Alkaline Phosphatase 99.0 U/L (34-104); Anion Gap 9.0 (3-11); Bilirubin,Total 1.3 mg/dl (0.2-1.0); Blood Urea Nitrogen 35.0 mg/dl (6-23); Calcium 9.9 mg/dl (8.6-10.3); Carbon Dioxide 29.0 mmol/L (21-32); Chloride 97.0 mmol/L (98-107); Creatinine Clr Calc Pharmacy 17.1 ml/min; Globulin 3.1 gm/dl (2.5-4.0); Glucose 92.0 mg/dl (70-99(Fasting)); Magnesium 3.0 mg/dl (1.7-2.4); Potassium 3.9 mmol/L (3.5-5.1); Sodium 135.0 mmol/L (136-145); Total Protein 6.6 gm/dl (6.0-8.3)
[2024-11-05 06:40] LABS: INR 2.6 (0.9-1.1); Prothrombin Time 25.6 Seconds (9.0-12.0)
--- NOTE | 2024-11-05 08:34 | Cardiology Consultation ---
Date of Consultation November 05, 2024 Assessment & Plan (1) Acute on chronic heart failure with preserved ejection fraction (HFpEF): (2) UTI (urinary tract infection): (3) Hyperammonemia: (4) Cirrhosis: (5) CKD (chronic kidney disease), stage IV: Plan Assessment: 69 year old medically complex female admitted for increased lethargy, confusion and weight gain. + UTI, hyperammonemia and chest xray suggestive of increased pulmonary vascular congestion. Cardiology consulted for further assessment and recommendations. Plan: 1. Acute on Chronic heart failure with Preserved ejection fraction 2. CKD -Patient with evidence of hypervolemia on exam, Renal function stable. -compliant on all home medications, dietary compliance and fluid restriction. -Known history of mixed valvular disease including severe TR which patient had undergone a Tricuspid clip; however, unable to grasp all 3 leaflets (able to clip 2 of 3) -Continue Torsemide 100mg IV BID -Continue Spironolactone 25mg PO BID -Continue Potassium supplementation -Continue Toprol xl 50mg PO QD as part of HF regimen -Nephrology also on board appreciate recommendations. -Strict I&O with daily weights and close monitoring of renal function/electrolytes. Goal serum K> 4.0 and serum mag > 2.0 -Newly diagnosed cirrhosis now a complicating factor with heart failure 2. UTI -Continued management per primary team -This is now her 5th UTI reported this calender year. discussed with patient that she will need to stop Jardiance due to recurrent UTIs 3. Hyperammonemia 4. Cirrhosis: -Elevated ammonia levels with new Liver US findings suggestive of Cirrhosis -Patient's mentation has improved with initiation of Lactulose. GI has advised to continue Lactulose 20gm BID. -Patient and family member report very limited use of ETOH, consumes maybe 5 drinks per month. -Concern that patient's cirrhosis could stem from long standing chronic right heart failure. -will await further recommendations from GI. Case has been discussed with Dr. Salcido. Further recommendations regarding plan of care as per his assessment. I spent a total of 50 minutes on the date of service in preparation, delivery, documentation of the care provided to the patient excluding any time spent in the performance of separately billed services. SOFI [facility] Supervising Physician Co-Signing Physician Notes I have personally performed a history and physical examination on the patient. I have reviewed the advance practitioner's documentation, and I agree with, and take responsibility for the plan of care. 69-year-old female presenting with weakness, fatigue, lethargy. Diagnosed with E. coli urinary tract infection, acute on chronic heart failure, hepatic encephalopathy with elevated ammonia level. History of chronic heart failure, severe mixed valvular disease with remote mechanical mitral valve replacement, and severe tricuspid regurgitation status post tricuspid valve clip 02/2024. Most recent echocardiogram noted above. Mild diuresis since admission. Respiratory status improved. Confusion has resolved. Chronic treatment with Jardiance implicated in recurrent UTIs. Recommendations: * Discontinue Jardiance. * Continue diuresis with torsemide 100 mg twice daily in addition to spironolactone. * Monitor fluid balance, daily weight, GFR, electrolytes. * Chronic anticoagulation with warfarin for goal INR 2.5-3.5 due to history of mechanical MVR. * Continue Toprol XL * Antibiotics as per internal medicine. Nehemias Salcido DO, [facility] I spent a total of 35 minutes on the date of service in preparation, delivery, and documentation of the care provided to this patient, excluding any time spent in the performance of separately billed services. History of Present Illness Reason for Consultation: Acute CHF Requesting Physician: Dilma owusu Attending Physician: Jose Angel Lara MD History of Present Illness HPI: Patient is a 69 year old medically complex female with PMHx as outlined below that presents to the ER with acute complaints of lethargy and weight gain. Most of history provided by patient's cousin/caregiver Moris. He notes that patient has had increased lethargy that started this past weekend, could not "stay awake more than a couple minutes", also notes increased confusion correlating with multiple recurrent UTIs. Endorses weight gain despite compliance with diuretic therapy. She also takes her metolazone once weekly last dose 10/30. Cardiac Problems: 1. Chronic HFpEF, NYHA IV 2. 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 Severe tricuspid insufficiency s/p Triclip XTW device to the anterior and septal leaflet reducing TR to 3+ (previously 5+),unable to grasp septal and posterior leaflet 02/20/[address] Arevalo 4. Rheumatic heart disease a. Status post mechanical mitral valve replacement (1993; Medtronic) 5. Past embolic myocardial infarction and TIA (on chronic anticoagulation) 6. Type 2 diabetes mellitus (Last HbA1c 6.7%) 7. HLD 8. Status post LINQ insertion (03/31/21) 9. CKD stage IV 10. Chronic iron deficiency anemia on infusion therapy EKG Atrial fibrillation Rate 54 bpm + UTI Chest xray: IMPRESSION: 1. Marked cardiomegaly with pulmonary vascular congestion. 2. Question mild airspace opacities in the right upper lung. Mild edema or a mild pneumonitis is not excluded. Clinical correlation will be required and radiographic follow-up to resolution is recommended. Liver Ultrasound: IMPRESSION: Expected intra and extrahepatic biliary ductal dilatation given the patient's history of prior cholecystectomy Liver has a heterogeneous echotexture suggesting hepatic cirrhosis Portal vein is patent but suggest portal hypertension. Upon seeing patient today she is resting in bed, visibly uncomfortably. She is awake, alert and oriented, but is noting significant fatigue. "i just feel horrible". Denies any chest pain or pressure. Endorses shortness of breath and bilateral lower extremity edema. legs are very tender to the touch. No pre- syncope or syncope. Review of telemetry shows A-fib rates 60's. No acute events Allergies Allergy/AdvReac Type Severity Reaction Status Date / Time budesonide Allergy Severe could not Verified 11/04/24 18:17 breath enoxaparin [From Lovenox] Allergy Unknown ON Verified 11/04/24 18:17 [facility] hydroxyzine AdvReac Severe DYSTONIA Verified 11/04/24 18:17 prochlorperazine AdvReac Severe NUCHAL Verified 11/04/24 18:17 DYSTONIA promethazine AdvReac Severe NUCHAL Verified 11/04/24 18:17 DYSTONIA PERRY Inhibitors AdvReac Intermediate COUGH Verified 11/04/24 18:17 gabapentin AdvReac Intermediate CONFUSION/D Verified 11/04/24 18:17 ROWSY lisinopril AdvReac Intermediate Cough Verified 11/04/24 18:17 metformin AdvReac Intermediate DIARRHEA Verified 11/04/24 18:17 oxycodone AdvReac Intermediate NUMB ALL Verified 11/04/24 18:17 OVER parsley AdvReac Intermediate AGITATION Verified 11/04/24 18:18 tetracycline AdvReac Intermediate NAUSEA/VOMI Verified 11/04/24 18:18 TING ondansetron [From Zofran] AdvReac nuchal Verified 11/04/24 18:18 dystonia Home Medications Medication Instructions Recorded Confirmed Type cholecalciferol (vitamin D3) 25 1,000 unit PO Q OTHER DAY 12/05/17 11/04/24 History mcg (1,000 unit) capsule (Vitamin D3) nitroglycerin 0.4 mg sublingual 0.4 mg sublingual DIRECTED PRN 12/05/17 11/04/24 History tablet (Nitrostat) Chest Pain omeprazole 20 mg capsule,delayed 20 mg PO QAM PRN Gi Upset 12/05/17 11/04/24 History release levothyroxine 100 mcg tablet 100 mcg PO DAILYBB 05/18/18 11/04/24 History folic acid 1 mg tablet 1 mg PO QAM #30 tabs 05/21/18 11/04/24 Rx spironolactone 25 mg tablet 25 mg PO AMPM 12/31/19 11/04/24 History citalopram 10 mg tablet 10 mg PO QAM 07/18/21 11/04/24 History tramadol 50 mg tablet 50 mg PO Q6 PRN .severe 07/18/21 11/04/24 History breakthrough pain azelastine 137 mcg (0.1 %) nasal 2 spray intranasal AMHS 08/02/21 11/04/24 History spray Incentive Spirometer #1 ea 09/05/21 07/15/24 Rx valacyclovir 1 gram tablet 2,000 mg PO AMPM PRN Cold Sores 11/30/21 11/04/24 History Oxygen Home #1 ea 04/08/23 07/15/24 Rx Oxygen Home #2 ea 05/03/23 07/15/24 Rx acetaminophen 500 mg tablet 500 mg PO Q6H PRN Pain 07/09/23 11/04/24 History (Tylenol Extra Strength) albuterol sulfate 90 mcg/actuation 2 puff inhalation Q4H PRN 07/09/23 11/04/24 History aerosol inhaler COUGH/SHORT OF BREATH/WHEEZING benzonatate 100 mg capsule 100 mg PO TID PRN cough 07/09/23 11/04/24 History buprenorphine 5 mcg/hour weekly 5 mcg transdermal WK 07/09/23 11/04/24 History transdermal patch empagliflozin 10 mg tablet 10 mg PO Q2D 07/09/23 11/04/24 History (Jardiance) metoclopramide HCl 10 mg tablet 10 mg PO DAILYBB PRN Nausea 07/09/23 11/04/24 History (Reglan) nystatin 100,000 unit/mL oral 5 ml mucous membrane QID PRN THRUSH 07/09/23 11/04/24 History suspension metoprolol succinate 50 mg 50 mg PO QAM #30 tabs 07/14/23 11/04/24 Rx tablet,extended release 24 hr metoprolol succinate 25 mg 25 mg PO QPM 05/12/24 11/04/24 History tablet,extended release 24 hr rosuvastatin 10 mg tablet 10 mg PO QAM 06/10/24 11/04/24 History Iron Infusions 1 dose IV Q6M 07/13/24 11/04/24 History estradiol 0.01% (0.1 mg/gram) 1 appful vaginal 2XWK 07/15/24 11/04/24 History vaginal cream ropinirole 2 mg tablet 2 mg PO HS 07/15/24 11/04/24 History ipratropium 20 mcg-albuterol 100 1 puff inhalation QID PRN 07/27/24 11/04/24 Rx mcg/actuation mist for inhalation Shortness Of Breath #12 grams (Combivent Respimat) ipratropium 0.5 mg-albuterol 3 mg 3 ml inhalation QID PRN shortness 10/30/24 11/04/24 Rx (2.5 mg base)/3 mL nebulization of breath or wheezing #1,080 mL soln clindamycin phosphate 2 % vaginal 1 applic vaginal 2XWK 11/04/24 11/04/24 History cream metolazone 2.5 mg tablet 2.5 mg PO .WEEKLY/UD 11/04/24 11/04/24 History potassium chloride 10 mEq 20 meq PO TID 11/04/24 11/04/24 History tablet,extended release torsemide 100 mg tablet 100 mg PO AMPM 11/04/24 11/04/24 History warfarin 5 mg tablet 0 mg PO .UD/DAILY 11/04/24 11/04/24 History Patient History Medical History History of blood transfusion autologous s/p MVR (1993), 09/2018 (post-op) A-fib 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 migraine vs. stress related)-- plavix since discontinued Anxiety Restless legs syndrome Migraines Diabetes diet controlled HTN (hypertension) Surgical History History of cardiac cath 2000= NO STENTS History of total left knee replacement History of colonoscopy Hx of tubal ligation Hx of appendectomy History of tonsillectomy and adenoidectomy Hx of cholecystectomy Hx of mitral valve replacement 1993 (rheumatic valvular disease) H/O: hysterectomy H/O radioactive iodine thyroid ablation Family History Uncle , of [place] in his 40s Coronary heart disease Social History Smoking Status: Never smoker Second Hand Exposure: No; Do You Dip or Chew Tobacco: No; Hx Alcohol Use: Yes Alcohol type: wine Hx Substance Use: No Preferred Language: Sinhala Communication Ability: Effective Communication Ability Comment: speech impediment, easily understood Piercing Artist Required: No Beliefs That Will Affect Care: None marital status: Single Current Living Situation: Alone Current Living Situation Comment: cousin/caregiver lives next door current occupational status: disabled How many Children do You have: 0 Other Information That Helps Us Care for You: No Feels Safe at Home: Yes Safety Concerns: Feels Safe At This Time Assistive Devices: Oxygen - at Night, Walker and Wheelchair Review of Systems Review of Systems: All systems reviewed & are unremarkable except as noted in HPI & below Physical Exam Constitutional: well developed and + frail appearing Neck: normal visual inspection and trachea midline Respiratory: normal respiratory effort and + cough; no respiratory distress Auscultation: + diminished lung sounds, + crackles (faint crackles in bilateral lower lungs) and + wheezes (faint exp wheezes) Cardiovascular: Rate/Rhythm: + irregularly irregular Heart Sounds: normal S1, normal S2 and + murmur Vessels: dorsalis pedis pulses present; no JVD Extremities: + edema (+1 BLE) Skin: normal turgor and + wound (bandage to left lower extremity ) Psychiatric: Orientation: alert and oriented x 3 Affect: + anxious affect Results & Data Vital Signs (Past 12 Hours) Vital Signs Temp Pulse Pulse Resp BP BP Pulse Ox 11/05/24 07:34 58 L 11/05/24 07:31 36.6 C 53 L 18 110/69 91 11/05/24 07:25 76 17 91 11/05/24 02:45 36.6 C 68 18 104/62 98 11/04/24 22:25 70 11/04/24 21:48 11/04/24 21:48 36.4 C L 72 20 107/65 96 11/04/24 21:22 65 20 117/95 95 11/04/24 20:40 62 18 117/95 100 O2 Del Method O2 Flow Rate 11/05/24 07:34 11/05/24 07:31 Room Air 11/05/24 07:25 Room Air 11/05/24 02:45 Room Air 11/04/24 22:25 11/04/24 21:48 Room Air 11/04/24 21:48 Room Air 11/04/24 21:22 Room Air 11/04/24 20:40 Nasal Cannula 2 Laboratory Results Cardiac Enzymes 11/04/24 11/05/24 Range/Units 14:50 05:40 AST 33 30 (13-39) U/L Troponin I High Sens 14.4 H (0-14) pg/ml B-Natriuretic Peptide 271 H (0-100) pg/ml Coagulation 11/04/24 11/05/24 Range/Units 14:50 05:40 PT 24.6 H 25.6 H (9.0-12.0) Seconds B-Natriuretic Peptide 271 H (0-100) pg/ml CBC 11/04/24 11/05/24 Range/Units 14:50 05:40 WBC 5.44 5.46 (4.8-10.8) K/ul RBC 3.99 L 3.93 L (4.20-5.40) M/uL Hgb 11.3 L 11.4 L (12.0-16.0) g/dl Hct 36.0 L 35.7 L (37.0-47.0) % Plt Count 141 132 (130-400) K/uL Neut # (Auto) 3.78 (1.40-6.50) K/uL Lymph # (Auto) 0.67 L (1.20-3.40) K/uL Treasure # (Auto) 0.80 H (0.11-0.59) K/uL Eos # (Auto) 0.14 (0.00-0.50) K/uL Baso # (Auto) 0.03 (0.00-0.20) K/uL Comprehensive Metabolic Panel 11/04/24 11/05/24 Range/Units 14:50 05:40 Sodium 133 L 135 L (136-145) mmol/L Potassium 3.9 3.9 (3.5-5.1) mmol/L Chloride 96 L 97 L (98-107) mmol/L Carbon Dioxide 28 29 (21-32) mmol/L BUN 35 H 35 H (6-23) mg/dl Creatinine 2.57 H 2.43 H (0.6-1.2) mg/dl Glucose 115 H 92 (70-99(Fasting)) mg/dl Calcium 9.7 9.9 (8.6-10.3) mg/dl AST 33 30 (13-39) U/L ALT 18 17 (7-52) U/L Alkaline Phosphatase 104 99 (34-104) U/L Total Protein 7.0 6.6 (6.0-8.3) gm/dl Albumin 3.7 3.5 (3.4-5.0) gm/dl Intake and Output 11/04/24 11/05/24 11/05/24 22:59 06:59 14:59 Intake Total 50 / 170 120 / 170 Output Total 400 / 650 250 / 650 Balance -350 / -480 -130 / -480 Intake: IV 50 / 50 cefTRIAXone SODIUM 2,000 mg In 50 / 50 50 ml @ 100 mls/hr IV NOW STA Rx#:[id number] Oral 120 / 120 Output: Urine 400 / 650 250 / 650 Other: # Unmeasured Voids 1 Weight 59.1 kg 59.1 kg Weight Measurement Method Standing Scale Standing Scale Diagnostic Findings Echocardiogram 07/14/2024 LVEF 60-64% Left atrium Severely enlarged Moderate aortic valve sclerosis Mild AI Mitral valve central disc (Roe-Medtronic type) mechanical prosthesis with surrounding heavy pannus but preserved leaf mobility with mildly elevated transvalvular velocity and gradient. Doppler reveals mitral regurgitation through the oriface of the prosthetic valve that is physiologic normal TriClip XTW device is visualized Severe TR PASP 40mmHG PG Care Time/CCT Total # of Minutes Spent Total Time Spent with Patient: Total time spent is greater than 50% in coordination of care (as documented) at patient's floor/unit and/or counseling patient: [place] [address] IN/OBS CONSULT LVL 5,80M Patient Type New Diagnoses Acute on chronic heart failure with preserved ejection fraction (HFpEF) I50.33 UTI (urinary tract infection) N30.01 Hematuria presence: with hematuria Urinary tract infection type: acute cystitis Hyperammonemia E72.20 Cirrhosis K74.60 CKD (chronic kidney disease), stage IV N18.4 Time Spent (min) 50 (2) UTI (urinary tract infection) Hematuria presence: with hematuria Urinary tract infection type: acute cystitis Qualified Code(s): N30.01 - Acute cystitis with hematuria
[2024-11-05] MEDS: CITALOPRAM 20 MG TAB PO SCH (08:43)
[2024-11-05] MEDS: CHOLECALCIFEROL 25 MCG (1000 UNITS) TAB PO SCH (08:43)
[2024-11-05] MEDS: FOLIC ACID 1 MG TAB PO SCH (08:44)
[2024-11-05] MEDS: ROSUVASTATIN CALCIUM 10 MG TAB PO SCH (08:45)
[2024-11-05] MEDS: METOPROLOL SUCC 50MG EXT REL TAB PO SCH (08:50)
--- NOTE | 2024-11-05 10:04 | Gastrointestinal Consultation ---
Date of Consultation November 05, 2024 Assessment & Plan (1) Cirrhosis: (2) Hyperammonemia: Plan Patient with new findings of cirrhosis which I suspect is multifactorial and likely her cardiovascular status plays a factor in the development of this. Case discussed with Dr. Galloway. - I advised avoidance of alcohol to both patient and her caregiver. - check AFP. - continue lactulose 20gm bid. titrate dosage to 2-3 bowel movements daily. - recommend 2 g low sodium diet. - will need periodic labs and imaging to monitor cirrhosis. - can consider EGD for variceal screening as an outpatient depending on overall clinical picture. -Further recommendations to come with Supervising GI provider on medical rounds. Please see co-signature comments. Supervising Physician Co-Signing Physician Notes The patient was seen and evaluated at bedside. Hospital labs, data, records and imaging were reviewed at length. The case was discussed with the GI WHIT and I agree with his assessment and plan as outlined above. The patient presents with hyperammonemia and encephalopathy likely multifactorial including recurrent urinary tract infection. She has clinically improved with antibiotics. Continue use of lactulose and Xifaxan indefinitely as recommended. Fortunately she does not have evidence of ascites at this time. Close follow-up with GI with routine care including variceal surveillance, liver imaging twice yearly for hepatocellular carcinoma surveillance is advised. Unfortunately due to her underlying cardiovascular status she would not be a transplant candidate. Abstention from alcohol is essential. History of Present Illness Reason for Consultation: elevated ammonia Requesting Physician: Lyubov FARAH Attending Physician: Jose Angel Lara MD History of Present Illness Patient is a 69 year old female with a past medical history significant for chronic diastolic heart failure (EF 60% April 2024), permanent A fib, severe TR status post recent Triclip procedure (Feb 2024), s/p LOOP (Mar 2021), rheumatic heart disease s/p mechanical MVR (1993) on Coumadin, HTN, HLD, DMII, CKD IV, COPD, restrictive lung disease, nocturnal hypoxia, hypothyroidism, depres maria de jesus/anxiety, RLS, chronic pain, and esophageal dysmotility who presented to the ED on 11/04/2024 with complaints of lethargy and weight gain. History obtained via chart and both the patient and her cousin/caregiver Moris, who was available via phone. she has been having some confusion which was felt to relate to recurrent UTIs. During her work up, she was found to have an elevated ammonia level of 77. Due to this, she was ordered an US of the liver and this did show cirrhosis. She tells me that this is new for her. She reports no prior history of liver issues and no family history of liver issues. she does admit to alcohol use - she tells me she would drink a mix drink every other day, but her caregiver tells me that she maybe has 5 drinks a month and does not drink in excess. The remainder of the GI ros are unremarkable. 11/04/24 ammonia 77. T bili 1.5, ast 33, alt 18, alk phos 104 11/05/24 T bili 1.3, ast 30, alt 17, alk phos 99. wbc 5.46, hgb 11.4, hct 35.7, plts 132. 11/04/24 US - Expected intra and extrahepatic biliary ductal dilatation given the patient's history of prior cholecystectomy. Liver has a heterogeneous echotexture suggesting hepatic cirrhosis . Portal vein is patent but suggest portal hypertension. Allergies Allergy/AdvReac Type Severity Reaction Status Date / Time budesonide Allergy Severe could not Verified 11/04/24 18:17 breath enoxaparin [From Lovenox] Allergy Unknown ON Verified 11/04/24 18:17 [facility] hydroxyzine AdvReac Severe DYSTONIA Verified 11/04/24 18:17 prochlorperazine AdvReac Severe NUCHAL Verified 11/04/24 18:17 DYSTONIA promethazine AdvReac Severe NUCHAL Verified 11/04/24 18:17 DYSTONIA PERRY Inhibitors AdvReac Intermediate COUGH Verified 11/04/24 18:17 gabapentin AdvReac Intermediate CONFUSION/D Verified 11/04/24 18:17 ROWSY lisinopril AdvReac Intermediate Cough Verified 11/04/24 18:17 metformin AdvReac Intermediate DIARRHEA Verified 11/04/24 18:17 oxycodone AdvReac Intermediate NUMB ALL Verified 11/04/24 18:17 OVER parsley AdvReac Intermediate AGITATION Verified 11/04/24 18:18 tetracycline AdvReac Intermediate NAUSEA/VOMI Verified 11/04/24 18:18 TING ondansetron [From Zofran] AdvReac nuchal Verified 11/04/24 18:18 dystonia Home Medications Medication Instructions Recorded Confirmed Type cholecalciferol (vitamin D3) 25 1,000 unit PO Q OTHER DAY 12/05/17 11/04/24 History mcg (1,000 unit) capsule (Vitamin D3) nitroglycerin 0.4 mg sublingual 0.4 mg sublingual DIRECTED PRN 12/05/17 11/04/24 History tablet (Nitrostat) Chest Pain omeprazole 20 mg capsule,delayed 20 mg PO QAM PRN Gi Upset 12/05/17 11/04/24 History release levothyroxine 100 mcg tablet 100 mcg PO DAILYBB 05/18/18 11/04/24 History folic acid 1 mg tablet 1 mg PO QAM #30 tabs 05/21/18 11/04/24 Rx spironolactone 25 mg tablet 25 mg PO AMPM 12/31/19 11/04/24 History citalopram 10 mg tablet 10 mg PO QAM 07/18/21 11/04/24 History tramadol 50 mg tablet 50 mg PO Q6 PRN .severe 07/18/21 11/04/24 History breakthrough pain azelastine 137 mcg (0.1 %) nasal 2 spray intranasal AMHS 08/02/21 11/04/24 History spray Incentive Spirometer #1 ea 09/05/21 07/15/24 Rx valacyclovir 1 gram tablet 2,000 mg PO AMPM PRN Cold Sores 11/30/21 11/04/24 History Oxygen Home #1 ea 04/08/23 07/15/24 Rx Oxygen Home #2 ea 05/03/23 07/15/24 Rx acetaminophen 500 mg tablet 500 mg PO Q6H PRN Pain 07/09/23 11/04/24 History (Tylenol Extra Strength) albuterol sulfate 90 mcg/actuation 2 puff inhalation Q4H PRN 07/09/23 11/04/24 History aerosol inhaler COUGH/SHORT OF BREATH/WHEEZING benzonatate 100 mg capsule 100 mg PO TID PRN cough 07/09/23 11/04/24 History buprenorphine 5 mcg/hour weekly 5 mcg transdermal WK 07/09/23 11/04/24 History transdermal patch empagliflozin 10 mg tablet 10 mg PO Q2D 07/09/23 11/04/24 History (Jardiance) metoclopramide HCl 10 mg tablet 10 mg PO DAILYBB PRN Nausea 07/09/23 11/04/24 History (Reglan) nystatin 100,000 unit/mL oral 5 ml mucous membrane QID PRN THRUSH 07/09/23 11/04/24 History suspension metoprolol succinate 50 mg 50 mg PO QAM #30 tabs 07/14/23 11/04/24 Rx tablet,extended release 24 hr metoprolol succinate 25 mg 25 mg PO QPM 05/12/24 11/04/24 History tablet,extended release 24 hr rosuvastatin 10 mg tablet 10 mg PO QAM 06/10/24 11/04/24 History Iron Infusions 1 dose IV Q6M 07/13/24 11/04/24 History estradiol 0.01% (0.1 mg/gram) 1 appful vaginal 2XWK 07/15/24 11/04/24 History vaginal cream ropinirole 2 mg tablet 2 mg PO HS 07/15/24 11/04/24 History ipratropium 20 mcg-albuterol 100 1 puff inhalation QID PRN 07/27/24 11/04/24 Rx mcg/actuation mist for inhalation Shortness Of Breath #12 grams (Combivent Respimat) ipratropium 0.5 mg-albuterol 3 mg 3 ml inhalation QID PRN shortness 10/30/24 11/04/24 Rx (2.5 mg base)/3 mL nebulization of breath or wheezing #1,080 mL soln clindamycin phosphate 2 % vaginal 1 applic vaginal 2XWK 11/04/24 11/04/24 History cream metolazone 2.5 mg tablet 2.5 mg PO .WEEKLY/UD 11/04/24 11/04/24 History potassium chloride 10 mEq 20 meq PO TID 11/04/24 11/04/24 History tablet,extended release torsemide 100 mg tablet 100 mg PO AMPM 11/04/24 11/04/24 History warfarin 5 mg tablet 0 mg PO .UD/DAILY 11/04/24 11/04/24 History Patient History Medical History History of blood transfusion autologous s/p MVR (1993), 09/2018 (post-op) A-fib 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 migraine vs. stress related)-- plavix since discontinued Anxiety Restless legs syndrome Migraines Diabetes diet controlled HTN (hypertension) Surgical History History of cardiac cath 2000= NO STENTS History of total left knee replacement History of colonoscopy Hx of tubal ligation Hx of appendectomy History of tonsillectomy and adenoidectomy Hx of cholecystectomy Hx of mitral valve replacement 1993 (rheumatic valvular disease) H/O: hysterectomy H/O radioactive iodine thyroid ablation Family History Uncle , of [place] in his 40s Coronary heart disease Social History Smoking Status: Never smoker Second Hand Exposure: No; Do You Dip or Chew Tobacco: No; Hx Alcohol Use: Yes Alcohol type: wine Hx Substance Use: No Preferred Language: Kyrgyz Communication Ability: Effective Communication Ability Comment: speech impediment, easily understood Cob Sawyer Required: No Beliefs That Will Affect Care: None marital status: Single Current Living Situation: Alone Current Living Situation Comment: cousin/caregiver lives next door current occupational status: disabled How many Children do You have: 0 Other Information That Helps Us Care for You: No Feels Safe at Home: Yes Safety Concerns: Feels Safe At This Time Assistive Devices: Oxygen - at Night, Walker and Wheelchair Review of Systems Review of Systems: All systems reviewed & are unremarkable except as noted in HPI & below Physical Exam Constitutional: WD/WN, vitals as above Respiratory: normal respiratory effort, lungs clear to auscultation Cardiovascular: Rate/Rhythm: regular rate and regular rhythm Gastrointestinal (Abdomen): normal bowel sounds, soft, nontender, no hepatosplenomegaly Psychiatric: Orientation: alert Results & Data Vital Signs (Past 12 Hours) Vital Signs Temp Pulse Pulse Resp BP Pulse Ox O2 Del Method 11/05/24 08:53 Nasal Cannula 11/05/24 08:49 69 100/62 11/05/24 07:34 58 L 11/05/24 07:31 97.9 F 53 L 18 110/69 91 Room Air 11/05/24 07:25 76 17 91 Room Air 11/05/24 02:45 97.9 F 68 18 104/62 98 Room Air 11/04/24 22:25 70 Coding Level of Care Code 12601 INT INP/OBS CARE 2/55MIN Diagnoses Cirrhosis K74.60 Hyperammonemia E72.20
--- NOTE | 2024-11-05 10:55 | Hospitalist Progress Note ---
Date of Service November 05, 2024 Assessment & Plan (1) Acute on chronic heart failure with preserved ejection fraction (HFpEF): (2) Severe tricuspid valve insufficiency: (3) Acute kidney injury superimposed on chronic kidney disease: (4) UTI (urinary tract infection): (5) A-fib: (6) Restrictive lung disease: (7) Nocturnal hypoxia: (8) Diabetes: (9) Hyperlipidemia: (10) Hypothyroidism: (11) Chronic pain: Plan 68 year old female with PMH significant for chronic diastolic heart failure (EF 60% April 2024), permanent A fib, severe TR status post recent Triclip procedure (Feb 2024), s/p LOOP (Mar 2021), rheumatic heart disease s/p mechanical MVR (1993) on Coumadin [INR goal 3-3.5], HTN, HLD, DMII, CKD IV, COPD, restrictive lung disease, nocturnal hypoxia, hypothyroidism, depression/anxiety, RLS, chronic pain, and esophageal dysmotility who presents to the ED on 11/04/2024 with lethargy and weight gain. Acute on chronic diastolic heart failure Patient presenting with lethargy and weight gain. 07/14/24 ECHO: ef 60-64%, LA and RA are severely enlarged, PASP 40 mmHg. CXR revealed marked cardiomegaly with pulmonary vascular congestion; question mild airspace opacities in right upper lung not excluding mild edema or mild pneumonitis BNP 271 On baseline O2 requirement of 2L while sleeping and BPs on softer side so will hold off on IV diuretics at this time, c/w home diuretics dose. Maintain FR 2L/day, pt states not being complaint w/ fluid intake at home. Continue home torsemide (and potassium supplement) and spironolactone Pt reports improvement in her BLE swelling and breathing. Daily weights and monitor I&Os Low sodium diet and 2L FR Hyperammonemia Cirrhosis Patient lethargic likely secondary to UTI but also found to have hyperammonemia at presentation. Ongoing confusion in outpatient setting with no ischemic changes on head CT on 09/30/2024 and 11/04/24. Pt feels lethargy improving. is awake and alert. Liver US s/o cirrhosis and portal HTN. c/w lactulose, repeat NH3 in am. GI evaled, recs are lactulose, low Na diet, EGD for variceal screening F/u w/ hepatology as OP. VICKY on CKD IV: Cr: 2.57. Baseline ~2.0. Avoid nephrotoxic agents as able. Cr 2.43, monitor Cr as pt needs ongoing diuresis. Nephrology consult: appreciate recs UTI: History of recurrent UTIs in setting of Jardiance. c/w rocephin 11/04. f/u UCx 11/04. Permanent atrial fibrillation Anticoagulated on Warfarin INR 2.6 today - goal is 3-3.5 OP chart reviewed 11/05 - pt take 2.5 mg on Mon and 3.75 mg all other days. c/w 5 mg today, f/u INR in am. Rate controlled - continue metoprolol Restrictive lung disease/ Nocturnal hypoxia: Continue duonebs bid and inhalers daily. Continue 2L oxygen HS Hyperlipidemia, history of TIA: Continue statin Type 2 diabetes: A1C 7.4 in August 2024. Home Jardiance on hold. BSG ACHS and SSI while inpatient Chronic pain: Continue buprenorphine patch. Hold home tramadol in setting of lethargy Anxiety: Continue citalopram Hypothyroidism: Continue levothyroxine GERD: Continue PPI RLS: Continue ropinirole DVT Prophylaxis: on warfarin Code Status: FULL CODE PCP: Lesia Simmons PT/OT. Admission and Anticipated Discharge Date Admission Date: November 04, 2024 Subjective Patient was seen and examined at bedside. Patient was lying in bed, on room air, NAD, resting comfortably. Patient reports significant improvement in her breathing, reports improvement in her BLE swelling. Patient reports eating okay and moving bowels okay, denies any new acute events overnight. Patient made aware of cirrhosis finding and advised her to follow-up with hepatology upon discharge, she voiced understanding. Physical Exam Physical Exam: General/Psych: ill appearing, sitting up in bed, NAD, Alert and oriented x 3. Head: normocephalic, atraumatic Eyes: normal inspection, PERRL, conjunctivae pink ENT: external ear and nose normal, oropharynx normal Neck: normal visual inspection, trachea midline Respiratory: normal respiratory effort, lungs diminished, no crackles appreciated, no accessory muscle use Cardiovascular: regular rate and rhythm, +murmur, +click, no JVD Extremities: no cyanosis or clubbing, normal peripheral pulses, 1+/trace BLE edema Abdomen/GI: normal bowel sounds, soft, nontender, no hepatosplenomegaly Neurologic/MSK: A+Ox3, moves all extremities Skin: BLE with chronic venous stasis changes, LLE with dressing c/d/i Results & Data Results & Data Vital Signs (Past 12 Hours) Vital Signs Temp Pulse Pulse Resp BP Pulse Ox O2 Del Method 11/05/24 08:53 Nasal Cannula 11/05/24 08:49 69 100/62 11/05/24 07:34 58 L 11/05/24 07:31 36.6 C 53 L 18 110/69 91 Room Air 11/05/24 07:25 76 17 91 Room Air 11/05/24 02:45 36.6 C 68 18 104/62 98 Room Air (5) A-fib Atrial fibrillation type: longstanding persistent Qualified Code(s): I48.11 - Longstanding persistent atrial fibrillation (8) Diabetes Diabetes mellitus complication status: without complication Diabetes mellitus retirement insulin use: 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
[2024-11-05] MEDS: ACETAMINOPHEN 500 MG TAB PO PRN (11:05)
--- NOTE | 2024-11-05 11:28 | Nephrology Consultation ---
Date of Consultation November 05, 2024 Assessment & Plan (1) VICKY (acute kidney injury): Admission creat is slightly higher than baseline. However creat today is about same/slightly better than yesterday. But this is still mostly CKD. has Sig heart Dz and now has Cirrhosis Also so makes much more prone to get VICKY now. Daily labs. I and O charting. avoid NSAIDS (2) CKD (chronic kidney disease), stage IV: baseline creat about 2 giving GFR < 30. cause is multifactorial from Dm and cardiac Dz + meds. (3) Acute on chronic heart failure with preserved ejection fraction (HFpEF): has Sig VHD and Chronic CHF. Now has congestion also. Already on very high dose of Diuretics at home. She already takes 100 bid of torsemide and weekly metolazone + Aldactone 25 at home. Would suggest to use Iv lasix like 80 bid while inpt (4) UTI (urinary tract infection): has recurrent UTI. will suggest to permanently stop jardiance given this. (5) Cirrhosis: This is new Dx. Cause --cardiac cirrhosis/MCDONOUGH/Alcohol. Will now makes it even more difficult History of Present Illness Reason for Consultation: CKD 4 , CHF and recurrent UTI Attending Physician: Jose Angel Lara MD History of Present Illness 69/F with CKD 4 --baseline creat about 2, DM2, chronic diastolic heart failure (EF 60% April 2024), permanent A fib, severe TR status post recent Triclip procedure (Feb 2024), s/p LOOP (Mar 2021), rheumatic heart disease s/p mechanical MVR (1993) on Coumadin, HTN, HLD, DMII, COPD, restrictive lung disease, nocturnal hypoxia, hypothyroidism, depression/anxiety, RLS, chronic pain, and esophageal dysmotility who presented to the ED on 11/04/2024 with complaints of lethargy and weight gain. She felt her legs very heavy and more edema than usual. She already takes 100 bid of torsemide and weekly metolazone + Aldactone 25 at home. hard to get exact history from patient. She denies SOB though. was also having confusion at home and Ammonia was high. has been Seen by cards and also GI for elevated Nh3. Liver US showed Cirrhosis. CXR shows Pulm congestion. ROS--see HPI. 12 systems otherwise negative Physical Exam Physical Exam: General/Psych: ill appearing, lethargic Head: normocephalic, atraumatic. MM moist.Neck: Supple. JVD + Respiratory: normal respiratory effort, lungs diminished with crackles bases Cardiovascular: regular rate and rhythm, +murmur, +click, +JVD Extremities: 1+ BLE edema. dark pigmenation Abdomen/GI: soft, nontender Neurologic/MSK: A+Ox3, moves all extremities Skin: BLE with chronic venous stasis changes Allergies Allergy/AdvReac Type Severity Reaction Status Date / Time budesonide Allergy Severe could not Verified 11/04/24 18:17 breath enoxaparin [From Lovenox] Allergy Unknown ON Verified 11/04/24 18:17 GE[employer]bound[employer]ER MED LIST hydroxyzine AdvReac Severe DYSTONIA Verified 11/04/24 18:17 prochlorperazine AdvReac Severe NUCHAL Verified 11/04/24 18:17 DYSTONIA promethazine AdvReac Severe NUCHAL Verified 11/04/24 18:17 DYSTONIA PERRY Inhibitors AdvReac Intermediate COUGH Verified 11/04/24 18:17 gabapentin AdvReac Intermediate CONFUSION/D Verified 11/04/24 18:17 ROWSY lisinopril AdvReac Intermediate Cough Verified 11/04/24 18:17 metformin AdvReac Intermediate DIARRHEA Verified 11/04/24 18:17 oxycodone AdvReac Intermediate NUMB ALL Verified 11/04/24 18:17 OVER parsley AdvReac Intermediate AGITATION Verified 11/04/24 18:18 tetracycline AdvReac Intermediate NAUSEA/VOMI Verified 11/04/24 18:18 TING ondansetron [From Zofran] AdvReac nuchal Verified 11/04/24 18:18 dystonia Home Medications Medication Instructions Recorded Confirmed Type cholecalciferol (vitamin D3) 25 1,000 unit PO Q OTHER DAY 12/05/17 11/04/24 History mcg (1,000 unit) capsule (Vitamin D3) nitroglycerin 0.4 mg sublingual 0.4 mg sublingual DIRECTED PRN 12/05/17 11/04/24 History tablet (Nitrostat) Chest Pain omeprazole 20 mg capsule,delayed 20 mg PO QAM PRN Gi Upset 12/05/17 11/04/24 History release levothyroxine 100 mcg tablet 100 mcg PO DAILYBB 05/18/18 11/04/24 History folic acid 1 mg tablet 1 mg PO QAM #30 tabs 05/21/18 11/04/24 Rx spironolactone 25 mg tablet 25 mg PO AMPM 12/31/19 11/04/24 History citalopram 10 mg tablet 10 mg PO QAM 07/18/21 11/04/24 History tramadol 50 mg tablet 50 mg PO Q6 PRN .severe 07/18/21 11/04/24 History breakthrough pain azelastine 137 mcg (0.1 %) nasal 2 spray intranasal AMHS 08/02/21 11/04/24 History spray Incentive Spirometer #1 ea 09/05/21 07/15/24 Rx valacyclovir 1 gram tablet 2,000 mg PO AMPM PRN Cold Sores 11/30/21 11/04/24 History Oxygen Home #1 ea 04/08/23 07/15/24 Rx Oxygen Home #2 ea 05/03/23 07/15/24 Rx acetaminophen 500 mg tablet 500 mg PO Q6H PRN Pain 07/09/23 11/04/24 History (Tylenol Extra Strength) albuterol sulfate 90 mcg/actuation 2 puff inhalation Q4H PRN 07/09/23 11/04/24 History aerosol inhaler COUGH/SHORT OF BREATH/WHEEZING benzonatate 100 mg capsule 100 mg PO TID PRN cough 07/09/23 11/04/24 History buprenorphine 5 mcg/hour weekly 5 mcg transdermal WK 07/09/23 11/04/24 History transdermal patch empagliflozin 10 mg tablet 10 mg PO Q2D 07/09/23 11/04/24 History (Jardiance) metoclopramide HCl 10 mg tablet 10 mg PO DAILYBB PRN Nausea 07/09/23 11/04/24 History (Reglan) nystatin 100,000 unit/mL oral 5 ml mucous membrane QID PRN THRUSH 07/09/23 11/04/24 History suspension metoprolol succinate 50 mg 50 mg PO QAM #30 tabs 07/14/23 11/04/24 Rx tablet,extended release 24 hr metoprolol succinate 25 mg 25 mg PO QPM 05/12/24 11/04/24 History tablet,extended release 24 hr rosuvastatin 10 mg tablet 10 mg PO QAM 06/10/24 11/04/24 History Iron Infusions 1 dose IV Q6M 07/13/24 11/04/24 History estradiol 0.01% (0.1 mg/gram) 1 appful vaginal 2XWK 07/15/24 11/04/24 History vaginal cream ropinirole 2 mg tablet 2 mg PO HS 07/15/24 11/04/24 History ipratropium 20 mcg-albuterol 100 1 puff inhalation QID PRN 07/27/24 11/04/24 Rx mcg/actuation mist for inhalation Shortness Of Breath #12 grams (Combivent Respimat) ipratropium 0.5 mg-albuterol 3 mg 3 ml inhalation QID PRN shortness 10/30/24 11/04/24 Rx (2.5 mg base)/3 mL nebulization of breath or wheezing #1,080 mL soln clindamycin phosphate 2 % vaginal 1 applic vaginal 2XWK 11/04/24 11/04/24 History cream metolazone 2.5 mg tablet 2.5 mg PO .WEEKLY/UD 11/04/24 11/04/24 History potassium chloride 10 mEq 20 meq PO TID 11/04/24 11/04/24 History tablet,extended release torsemide 100 mg tablet 100 mg PO AMPM 11/04/24 11/04/24 History warfarin 5 mg tablet 0 mg PO .UD/DAILY 11/04/24 11/04/24 History Patient History Medical History History of blood transfusion autologous s/p MVR (1993), 09/2018 (post-op) A-fib 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 migraine vs. stress related)-- plavix since discontinued Anxiety Restless legs syndrome Migraines Diabetes diet controlled HTN (hypertension) Surgical History History of cardiac cath 2000= NO STENTS History of total left knee replacement History of colonoscopy Hx of tubal ligation Hx of appendectomy History of tonsillectomy and adenoidectomy Hx of cholecystectomy Hx of mitral valve replacement 1993 (rheumatic valvular disease) H/O: hysterectomy H/O radioactive iodine thyroid ablation Family History Uncle , of [place] in his 40s Coronary heart disease Social History Smoking Status: Never smoker Second Hand Exposure: No; Do You Dip or Chew Tobacco: No; Hx Alcohol Use: Yes Alcohol type: wine Hx Substance Use: No Preferred Language: Khmer Communication Ability: Effective Communication Ability Comment: speech impediment, easily understood 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: No Beliefs That Will Affect Care: None marital status: Single Current Living Situation: Alone Current Living Situation Comment: cousin/caregiver lives next door current occupational status: disabled How many Children do You have: 0 Other Information That Helps Us Care for You: No Feels Safe at Home: Yes Safety Concerns: Feels Safe At This Time Assistive Devices: Denture - Upper, Denture - Lower, Glasses, Hearing Aid - Bilateral, Oxygen - at Night, Stair Lift and Walker Results & Data Vital Signs (Past 12 Hours) Vital Signs Temp Pulse Pulse Resp BP Pulse Ox O2 Del Method 11/05/24 08:53 Nasal Cannula 11/05/24 08:49 69 100/62 11/05/24 07:34 58 L 11/05/24 07:31 36.6 C 53 L 18 110/69 91 Room Air 11/05/24 07:25 76 17 91 Room Air 11/05/24 02:45 36.6 C 68 18 104/62 98 Room Air Laboratory Results CBC, renal panel, urine and CXR and liver US (4) UTI (urinary tract infection) Hematuria presence: with hematuria Urinary tract infection type: acute cystitis Qualified Code(s): N30.01 - Acute cystitis with hematuria
[2024-11-05] MEDS: WARFARIN SOD 5 MG TAB PO ONE (12:53)
[2024-11-05] MEDS: cefTRIAXone SODIUM 2,000 MG/50 ML BAG IV SCH (20:14)
[2024-11-06 07:42] LABS: Hematocrit (blood only) 37.9 % (37.0-47.0); Hemoglobin 11.6 g/dl (12.0-16.0); Mean Corpuscular Hemoglobin 27.9 pg (25.0-34.0); Mean Corpuscular Volume 91.1 fL (80.0-100.0); Platelet Count 142 K/uL (130-400); RDW Standard Deviation 60.8 fL (36.4-46.3); Red Blood Count 4.16 M/uL (4.20-5.40); White Blood Count 5.85 K/ul (4.8-10.8)
[2024-11-06 08:05] LABS: INR 3.6 (0.9-1.1); Prothrombin Time 34.5 Seconds (9.0-12.0)
[2024-11-06 08:07] LABS: Anion Gap 9.0 (3-11); Calcium 9.8 mg/dl (8.6-10.3); Carbon Dioxide 27.0 mmol/L (21-32); Chloride 97.0 mmol/L (98-107); Potassium 4.5 mmol/L (3.5-5.1); Sodium 133.0 mmol/L (136-145)
[2024-11-06 08:12] LABS: Blood Urea Nitrogen 34.0 mg/dl (6-23); Creatinine Clr Calc Pharmacy 17.3 ml/min; Glucose 93.0 mg/dl (70-99(Fasting))
[2024-11-06] MEDS: METOCLOPRAMIDE HCL 10 MG TABLET PO PRN (08:45)
[2024-11-06] MEDS: REMOVE & WASTE BUTRANS PATCH 1 EA EA SCH (08:46)
[2024-11-06] MEDS: BUPRENORPHINE 5 MCG/HR TDSY TD SCH (08:59)
--- NOTE | 2024-11-06 11:03 | Cardiology Progress Note ---
Date of Service November 06, 2024 Assessment & Plan (1) Acute on chronic heart failure with preserved ejection fraction (HFpEF): (2) UTI (urinary tract infection): (3) Hyperammonemia: (4) Cirrhosis: (5) CKD (chronic kidney disease), stage IV: Plan Assessment: 69 year old medically complex female admitted for increased lethargy, confusion and weight gain. + UTI, hyperammonemia and chest xray suggestive of increased pulmonary vascular congestion. Cardiology consulted for further assessment and recommendations. Plan: 1. Acute on Chronic heart failure with Preserved ejection fraction 2. CKD -Patient with evidence of hypervolemia on exam, Renal function stable. -compliant on all home medications, dietary compliance and fluid restriction. -Known history of mixed valvular disease including severe TR which patient had undergone a Tricuspid clip; however, unable to grasp all 3 leaflets (able to clip 2 of 3) -It appears that patient was never given IV diuretics on admission. Home diuretics continued with torsemide 100 mg BID and spironolactone 25 mg BID -Given her ongoing SOB and hypervolemic state, would recommend transitioning to IV diuretics. -Start Furosemide 80 mg IV BID as per nephrology notes. Appreciate the assistance -Continue Spironolactone 25mg PO BID -Continue Potassium supplementation -Continue Toprol xl 50mg PO QD as part of HF regimen -Strict I&O with daily weights and close monitoring of renal function/electrolytes. Goal serum K> 4.0 and serum mag > 2.0 -Newly diagnosed cirrhosis now a complicating factor with heart failure 2. UTI -Continued management per primary team -This is now her 5th UTI reported this calender year. discussed with patient that she will need to stop Jardiance due to recurrent UTIs 3. Hyperammonemia 4. Cirrhosis: -Elevated ammonia levels with new Liver US findings suggestive of Cirrhosis -Patient's mentation has improved with initiation of Lactulose. GI has advised to continue Lactulose 20gm BID. -Patient and family member report very limited use of ETOH, consumes maybe 5 drinks per month. -Concern that patient's cirrhosis could stem from long standing chronic right heart failure. Case discussed with Dr. Sutton I spent a total of 35 minutes on the date of service in preparation, delivery, and documentation of the care provided to this patient, excluding any time spent in the performance of separately billed services. ARLEY RodriguesC Department of Cardiology, [facility] This chart was completed in part utilizing Speech Voice Recognition Software. Grammatical errors, random word insertions, pronoun errors, and incomplete sentences are an occasional consequence of this system due to software limitations, ambient noise, and hardware issues. Any formal questions or concerns about the content, text, or information contained within the body of this dictation should be directly addressed to the provider for clarification. Admission and Anticipated Discharge Date Admission Date: November 04, 2024 Supervising Physician Co-Signing Physician Notes Attending attestation: Case reviewed with the advanced practitioner. I have personally performed a history and physical examination on the patient. I have reviewed the advanced practitioner's documentation on the date of service referenced in note, and I agree with, and take responsibility for the plan of care. I spent a total of 20 minutes coordinating, documenting, and providing care for this patient excluding time spent in the performance of separately billed se rvices or time spent by another provider. Judd Sutton, DO Subjective Patient resting in bed. She reports her SOB has improved from yesterday but not at baseline. Denies chest pain. No abdominal pain. Energy levels improving. No confusion this morning. Review of Systems Review of Systems: All systems reviewed & are unremarkable except as noted in HPI & below Physical Exam Constitutional: well developed and + frail appearing Neck: normal visual inspection and trachea midline Respiratory: normal respiratory effort; no respiratory distress and no cough Auscultation: + diminished lung sounds and + crackles (faint crackles in bilateral lower lungs) Cardiovascular: Rate/Rhythm: + irregularly irregular Heart Sounds: normal S1, normal S2 and + murmur (+ crisp mechanical sound II/ ) Vessels: dorsalis pedis pulses present; no JVD Extremities: + edema (+1 BLE; left leg wrapped at site of blister) Skin: normal turgor and + wound (bandage to left lower extremity ) Psychiatric: Orientation: alert and oriented x 3 Affect: + anxious affect Results & Data Vital Signs (Past 12 Hours) Vital Signs Temp Pulse Pulse Resp BP Pulse Ox O2 Del Method 11/06/24 09:56 69 11/06/24 07:32 36.7 C 75 23 119/75 99 Room Air 11/06/24 07:31 76 20 99 Room Air 11/06/24 07:00 Room Air 11/06/24 03:08 36.4 C L 76 18 114/68 94 Room Air Laboratory Results Coagulation 11/06/24 Range/Units 07:22 PT 34.5 H (9.0-12.0) Seconds CBC 11/06/24 Range/Units 07:22 WBC 5.85 (4.8-10.8) K/ul RBC 4.16 L (4.20-5.40) M/uL Hgb 11.6 L (12.0-16.0) g/dl Hct 37.9 (37.0-47.0) % Plt Count 142 (130-400) K/uL Comprehensive Metabolic Panel 11/06/24 Range/Units 07:22 Sodium 133 L (136-145) mmol/L Potassium 4.5 (3.5-5.1) mmol/L Chloride 97 L (98-107) mmol/L Carbon Dioxide 27 (21-32) mmol/L BUN 34 H (6-23) mg/dl Creatinine 2.42 H (0.6-1.2) mg/dl Glucose 93 (70-99(Fasting)) mg/dl Calcium 9.8 (8.6-10.3) mg/dl Intake and Output 11/05/24 11/06/24 11/06/24 22:59 06:59 14:59 Intake Total 50 / 710 100 / 710 Output Total 500 / 1750 800 / 1750 Balance -450 / -1040 -700 / -1040 Intake: IV 50 / 50 cefTRIAXone SODIUM 2,000 mg In 50 / 50 50 ml @ 100 mls/hr IV Q24H [facility] Rx#:[id number] Oral 100 / 660 Output: Urine 500 / 1750 800 / 1750 Other: Weight 59.9 kg Weight Measurement Method Standing Scale Patient Weight 11/07/24 06:59 Weight 59.9 kg Diagnostic Findings Telemetry reviewed: Afib in the 's Medications Administered Current Inpatient Medications Acetaminophen (Acetaminophen 500 Mg Tab) 500 mg PO Q6H PRN PRN Reason: Mild Pain (Scale 1, 2, 3) Stop: 12/04/24 21:46 Last Admin: 11/05/24 11:05 Dose: 500 mg Albuterol (Albuterol Hfa 8 Gm Inhaler) 2 puffs INH BIDR [facility] Stop: 12/04/24 21:46 Last Admin: 11/06/24 07:31 Dose: Not Given Albuterol (Albut/Ipratrop 3mg/0.5mg Neb 3 Ml Vial) 3 ml INH BIDR [facility]; Protocol Stop: 12/04/24 21:46 Last Admin: 11/06/24 07:30 Dose: 3 ml Azelastine HCl (Azelastine Hcl 0.1% Nasal 200 Sprays/27,400 Mcg Btl) 2 sprays NA AMHS [facility] Stop: 12/04/24 21:46 Last Admin: 11/06/24 08:46 Dose: 2 sprays Buprenorphine HCl (Buprenorphine 5 Mcg/Hr Tdsy) 1 patch TD Fr [facility]ILA Stop: 12/06/24 08:59 Last Admin: 11/06/24 08:59 Dose: 1 patch Citalopram Hydrobromide (Citalopram 20 Mg Tab) 10 mg PO QAM [facility] Stop: 12/05/24 08:59 Last Admin: 11/06/24 08:44 Dose: 10 mg Dextrose (Dextrose 50% 50 Ml Syringe) 25 - 50 ml IV UD PRN; Protocol PRN Reason: Hypoglycemia Protocol Stop: 12/04/24 21:46 Folic Acid (Folic Acid 1 Mg Tab) 1 mg PO QAM [facility] Stop: 12/05/24 08:59 Last Admin: 11/06/24 08:45 Dose: 1 mg Glucagon (Glucagon For Inj 1 Mg Vial) 1 mg SQ UD PRN; Protocol PRN Reason: Hypoglycemia Protocol Stop: 12/04/24 21:46 Glucose (Glucose 40% Gel 15 Gm Tube) 15 - 30 gm PO UD PRN; Protocol PRN Reason: Hypoglycemia Protocol Stop: 12/04/24 21:46 Glucose (Glucose 10 Tab/Tube) 4 - 8 tab PO UD PRN; Protocol PRN Reason: Hypoglycemia Protocol Stop: 12/04/24 21:46 Ceftriaxone Sodium (Rocephin) 2,000 mg in 50 mls @ 100 mls/hr IV Q24H [facility] Stop: 11/10/24 19:59 Last Infusion: 11/05/24 20:44 Dose: Infused Insulin Aspart (Insulin Aspart Per Unit Charge) 0 units SC ACHS [facility] Stop: 12/04/24 21:46 Last Admin: 11/06/24 08:44 Dose: Not Given Lactulose (Lactulose Syrup 20 Gm/30 Ml Udc) 20 gm PO BID [facility] Stop: 12/04/24 20:59 Last Admin: 11/06/24 08:44 Dose: 20 gm Levothyroxine Sodium (Levothyroxine Sodium 100 Mcg Tablet) 100 mcg PO DAILYBB [facility] Stop: 12/05/24 06:29 Last Admin: 11/06/24 05:29 Dose: 100 mcg Lidocaine HCl (Lidocaine 2% Jelly 5 Ml Tube) 15 ml EXT Q4H PRN PRN Reason: painful oral sores Stop: 12/04/24 22:29 Metoclopramide HCl (Metoclopramide Hcl 10 Mg Tablet) 10 mg PO DAILYBB PRN PRN Reason: Nausea Stop: 12/05/24 15:04 Last Admin: 11/06/24 08:45 Dose: 10 mg Metoprolol Succinate (Metoprolol Succ 25mg Ext Rel Tab) 25 mg PO QPM [facility] Stop: 12/04/24 21:46 Last Admin: 11/05/24 20:14 Dose: 25 mg Metoprolol Succinate (Metoprolol Succ 50mg Ext Rel Tab) 50 mg PO QAM [facility] Stop: 12/05/24 08:59 Last Admin: 11/06/24 08:45 Dose: 50 mg Miscellaneous (Remove & Waste Butrans Patch 1 Ea Ea) 1 each N/A Q7D@0859 [facility] Stop: 12/06/24 08:58 Last Admin: 11/06/24 08:46 Dose: 1 each Miscellaneous (Check Buprenorphine Patch) 1 each N/A QS [facility] Stop: 12/04/24 21:59 Last Admin: 11/06/24 08:46 Dose: 1 each Miscellaneous (Carbohydrates For Hypoglycemia ) 15 - 30 gm PO UD PRN PRN Reason: Hypoglycemia Protocol Stop: 12/04/24 21:46 Pantoprazole Sodium (Pantoprazole 40 Mg Tab) 40 mg PO QAM PRN PRN Reason: Gi Upset Stop: 12/04/24 21:56 Last Admin: 11/06/24 08:45 Dose: 40 mg Potassium Chloride (Potassium Chloride 10 Meq Tabcr) 20 meq PO TID [facility] Stop: 12/04/24 21:46 Last Admin: 11/06/24 08:51 Dose: 20 meq Ropinirole HCl (Ropinirole Hcl 2 Mg Tablet) 2 mg PO HS [facility] Stop: 12/04/24 21:46 Last Admin: 11/05/24 20:14 Dose: 2 mg Rosuvastatin Calcium (Rosuvastatin Calcium 10 Mg Tab) 10 mg PO QAM [facility] Stop: 12/05/24 08:59 Last Admin: 11/06/24 08:45 Dose: 10 mg Spironolactone (Spironolactone 25 Mg Tab) 25 mg PO BID17 [facility] Stop: 12/04/24 21:46 Last Admin: 11/06/24 08:45 Dose: 25 mg Torsemide (Torsemide 100 Mg Tab) 100 mg PO BID17 [facility] Stop: 12/04/24 21:46 Last Admin: 11/06/24 08:45 Dose: 100 mg Vitamin D (Cholecalciferol 25 Mcg (1000 Units) Tab) 25 mcg PO Q2D [facility] Stop: 12/05/24 08:59 Last Admin: 11/05/24 08:43 Dose: 25 mcg PG Care Time/CCT Total # of Minutes Spent Total Time Spent with Patient: Total time spent is greater than 50% in coordination of care (as documented) at patient's floor/unit and/or counseling patient: 35 minutes Coding Level of Care Code 56748 SUB INP/OBS CARE 3/50MIN Diagnoses Acute on chronic heart failure with preserved ejection fraction (HFpEF) I50.33 UTI (urinary tract infection) N30.01 Hematuria presence: with hematuria Urinary tract infection type: acute cystitis Hyperammonemia E72.20 Cirrhosis K74.60 CKD (chronic kidney disease), stage IV N18.4 Time Spent (min) 55 Comment 35 minutes by Kierra Vu PA-C, [address] Sutton (2) UTI (urinary tract infection) Hematuria presence: with hematuria Urinary tract infection type: acute cystitis Qualified Code(s): N30.01 - Acute cystitis with hematuria
--- NOTE | 2024-11-06 11:35 | Nephrology Progress Note ---
Date of Service November 06, 2024 Assessment & Plan Admission and Anticipated Discharge Date Admission Date: November 04, 2024 Subjective Assessment & Plan (1) VICKY (acute kidney injury): Admission creat is slightly higher than baseline. However creat today is about same/slightly better than yesterday. But this is still mostly CKD. has Sig heart Dz and now has Cirrhosis Also so makes much more prone to get VICKY now. Daily labs. I and O charting. avoid NSAIDS Currently creat is holding steady but abnormal and somewhat higher than baseline. needs Diuresis and will use Lasix 80 iv bid. May even need more as she is already on very high dose Diuretics at home (2) CKD (chronic kidney disease), stage IV: baseline creat about 2 giving GFR < 30. cause is multifactorial from Dm and cardiac Dz + meds. (3) Acute on chronic heart failure with preserved ejection fraction (HFpEF): has Sig VHD and Chronic CHF. Now has congestion also. Already on very high dose of Diuretics at home. She already takes 100 bid of torsemide and weekly metolazone + Aldactone 25 at home. Would suggest to use Iv lasix like 80 bid while inpt. May even need more like lasix 100 tid. Depending on urine response will consider that (4) UTI (urinary tract infection): has recurrent UTI and now liver cirrhosis also so will suggest to permanently st op jardiance given this. (5) Cirrhosis: This is new Dx. Cause --cardiac cirrhosis/MCDONOUGH/Alcohol. Will now makes it even more difficult S--still feels bloated and somewhat Sob. BP is fine. Denies chest pain. No abdominal pain. Energy levels and improving confusion. ROS--see HPI. 12 systems otherwise negative Physical Exam Physical Exam: General/Psych: ill appearing, lethargic Head: normocephalic, atraumatic. MM moist.Neck: Supple. JVD + Respiratory: normal respiratory effort, lungs diminished with crackles bases Cardiovascular: regular rate and rhythm, +murmur, +click, +JVD Extremities: 1+ BLE edema. dark pigmenation Abdomen/GI: soft, nontender Neurologic/MSK: A+Ox3, moves all extremities Skin: BLE with chronic venous stasis changes Results & Data Vital Signs (Past 12 Hours) Vital Signs Temp Pulse Pulse Resp BP Pulse Ox O2 Del Method 11/06/24 09:56 69 11/06/24 07:32 36.7 C 75 23 119/75 99 Room Air 11/06/24 07:31 76 20 99 Room Air 11/06/24 07:00 Room Air 11/06/24 03:08 36.4 C L 76 18 114/68 94 Room Air
[2024-11-06] MEDS: FUROSEMIDE 40 MG/4 ML VIAL IV SCH (13:34)
--- NOTE | 2024-11-06 16:13 | Hospitalist Progress Note ---
Date of Service November 06, 2024 Assessment & Plan (1) Acute on chronic heart failure with preserved ejection fraction (HFpEF): (2) Severe tricuspid valve insufficiency: (3) Acute kidney injury superimposed on chronic kidney disease: (4) UTI (urinary tract infection): (5) A-fib: (6) Restrictive lung disease: (7) Nocturnal hypoxia: (8) Diabetes: (9) Hyperlipidemia: (10) Hypothyroidism: (11) Chronic pain: Plan 68 year old female with PMH significant for chronic diastolic heart failure (EF 60% April 2024), permanent A fib, severe TR status post recent Triclip procedure (Feb 2024), s/p LOOP (Mar 2021), rheumatic heart disease s/p mechanical MVR (1993) on Coumadin [INR goal 3-3.5], HTN, HLD, DMII, CKD IV, COPD, restrictive lung disease, nocturnal hypoxia, hypothyroidism, depression/anxiety, RLS, chronic pain, and esophageal dysmotility who presents to the ED on 11/04/2024 with lethargy and weight gain. Acute on chronic diastolic heart failure Patient presenting with lethargy and weight gain. 07/14/24 ECHO: ef 60-64%, LA and RA are severely enlarged, PASP 40 mmHg. CXR revealed marked cardiomegaly with pulmonary vascular congestion; question mild airspace opacities in right upper lung not excluding mild edema or mild pneumonitis BNP 271 On baseline O2 requirement of 2L while sleeping and BPs on softer side so will hold off on IV diuretics at this time, c/w home diuretics dose. Maintain FR 2L/day, pt states not being complaint w/ fluid intake at home. Continue diuresis (and potassium supplement) and spironolactone, appreciate cardio and nephro assistance. Pt reports improvement in her BLE swelling and breathing. Daily weights and monitor I&Os Low sodium diet and 2L FR Likely Metabolic encephalopathy (2/2 UTI) and/or acute hepatic encephalopathy: confusion noted at presentation, now resolved. Hyperammonemia Cirrhosis Patient lethargic likely secondary to UTI but also found to have hyperammonemia at presentation. Ongoing confusion in outpatient setting with no ischemic changes on head CT on 09/30/2024 and 11/04/24. Pt feels lethargy improving. is awake and alert. Liver US s/o cirrhosis and portal HTN. c/w lactulose GI evaled, recs are lactulose, low Na diet, OP EGD for variceal screening F/u w/ hepatology as OP. VICKY on CKD IV: Cr: 2.57. Baseline ~2.0. Avoid nephrotoxic agents as able. Cr 2.43, monitor Cr as pt needs ongoing diuresis. Nephrology consult: appreciate recs UTI: History of recurrent UTIs in setting of Jardiance. c/w rocephin 11/04. f/u UCx 11/04. dc jardiance on discharge, pt agreeable. Permanent atrial fibrillation Anticoagulated on Warfarin INR 3.6 today - goal is 3-3.5 OP chart reviewed 11/05 - pt take 2.5 mg on Mon and 3.75 mg all other days. c/w 2.5 mg today, f/u INR in am. Rate controlled - continue metoprolol Restrictive lung disease/ Nocturnal hypoxia: Continue duonebs bid and inhalers daily. Continue 2L oxygen HS Hyperlipidemia, history of TIA: Continue statin Type 2 diabetes: A1C 7.4 in August 2024. Home Jardiance on hold. BSG ACHS and SSI while inpatient Chronic pain: Continue buprenorphine patch. Hold home tramadol in setting of lethargy Anxiety: Continue citalopram Hypothyroidism: Continue levothyroxine GERD: Continue PPI RLS: Continue ropinirole DVT Prophylaxis: on warfarin Code Status: FULL CODE PCP: Lesia Simmons PT/OT. Admission and Anticipated Discharge Date Admission Date: November 04, 2024 Subjective Patient was seen and examined at bedside. Patient was lying in bed, on room air, NAD, resting comfortably. Patient reports significant improvement in her breathing, reports improvement in her BLE swelling. Patient reports eating okay and moving bowels okay, denies any new acute events overnight. Patient advised to maintain compliance with lactulose with a goal of 3-5 bowel movements a day. Physical Exam Physical Exam: General/Psych: ill appearing, sitting up in bed, NAD, Alert and oriented x 3. Head: normocephalic, atraumatic Eyes: normal inspection, PERRL, conjunctivae pink ENT: external ear and nose normal, oropharynx normal Neck: normal visual inspection, trachea midline Respiratory: normal respiratory effort, lungs diminished, no crackles appreciated, no accessory muscle use Cardiovascular: regular rate and rhythm, +murmur, +click, no JVD Extremities: no cyanosis or clubbing, normal peripheral pulses, 1+/trace BLE edema Abdomen/GI: normal bowel sounds, soft, nontender, no hepatosplenomegaly Neurologic/MSK: A+Ox3, moves all extremities Skin: BLE with chronic venous stasis changes, LLE with dressing c/d/i Results & Data Results & Data Vital Signs (Past 12 Hours) Vital Signs Temp Pulse Pulse Resp BP Pulse Ox O2 Del Method 11/06/24 15:25 36.8 C 73 20 107/67 98 Room Air 11/06/24 13:46 71 11/06/24 11:43 36.9 C 84 20 131/73 98 Room Air 11/06/24 09:56 69 11/06/24 07:32 36.7 C 75 23 119/75 99 Room Air 11/06/24 07:31 76 20 99 Room Air 11/06/24 07:00 Room Air (5) A-fib Atrial fibrillation type: longstanding persistent Qualified Code(s): I48.11 - Longstanding persistent atrial fibrillation (8) Diabetes Diabetes mellitus type: type 2 Diabetes mellitus 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
[2024-11-06] MEDS: WARFARIN SOD 2.5 MG TAB PO SCH (17:43)
[2024-11-07 07:04] LABS: Hematocrit (blood only) 39.4 % (37.0-47.0); Hemoglobin 12.2 g/dl (12.0-16.0); Mean Corpuscular Hemoglobin 28.3 pg (25.0-34.0); Mean Corpuscular Volume 91.4 fL (80.0-100.0); Platelet Count 149 K/uL (130-400); RDW Standard Deviation 62.6 fL (36.4-46.3); Red Blood Count 4.31 M/uL (4.20-5.40); White Blood Count 7.00 K/ul (4.8-10.8)
[2024-11-07 07:26] LABS: Anion Gap 10.0 (3-11); Blood Urea Nitrogen 38.0 mg/dl (6-23); Calcium 10.0 mg/dl (8.6-10.3); Carbon Dioxide 28.0 mmol/L (21-32); Chloride 98.0 mmol/L (98-107); Creatinine Clr Calc Pharmacy 15.1 ml/min; Glucose 109.0 mg/dl (70-99(Fasting)); Magnesium 3.0 mg/dl (1.7-2.4); Potassium 4.4 mmol/L (3.5-5.1); Sodium 136.0 mmol/L (136-145)
--- NOTE | 2024-11-07 07:35 | Electrocardiogram Report ---
Test Reason : Blood Pressure : */* mmHG Vent. Rate : 54 BPM Atrial Rate : 54 BPM P-R Int : 240 ms QRS Dur : 94 ms QT Int : 482 ms P-R-T Axes : * 12 -13 degrees QTcB Int : 457 ms Poor data quality, interpretation may be adversely affected Sinus bradycardia with Premature supraventricular complexes Minimal voltage criteria for LVH, may be normal variant ( [place] product ) Abnormal ECG When compared with ECG of 17-Jul-2024 04:30, Sinus rhythm has replaced Atrial fibrillation Left anterior fascicular block is no longer Present Nonspecific T wave abnormality, worse in Lateral leads QT has shortened Confirmed by Yonas Verma ([id number]) on 11/07/2024 7:34:46 AM Referred By: Confirmed By: Yonas Verma
[2024-11-07 07:36] LABS: INR 5.4 (0.9-1.1); Prothrombin Time 50.5 Seconds (9.0-12.0)
--- NOTE | 2024-11-07 08:07 | Cardiology Progress Note ---
Date of Service November 07, 2024 Assessment & Plan (1) Acute on chronic heart failure with preserved ejection fraction (HFpEF): (2) UTI (urinary tract infection): (3) Hyperammonemia: (4) Cirrhosis: (5) CKD (chronic kidney disease), stage IV: Plan Assessment: 69 year old medically complex female with PMHx significant for chronic HFpEF, permanent AFIB, severe TR s/p Triclip (02/2024), rheumatic heart disease s/p mechanical MVR (1993) on Coumadin admitted to [facility] on 11/04/24 for increased lethargy, confusion and weight gain. Admitted for E. coli UTI, acute on chronic HFpEF exacerbation, and hepatic encephalopathy with elevated ammonia level. Cardiology consulted for further assessment and recommendations. Plan: 1. Acute on chronic HFpEF, NYHA Class III 2. History of mixed valvular disease including severe tricuspid regurgitation status post Tricuspid clip (02/2024); however, unable to grasp all 3 leaflets (able to clip 2 of 3) 3. CKD stage IV -Clinical status improving but remains hypervolemic upon examination -Good response to IV diuresis with total cumulative output 5.5 L and weight down 1.7 kg since admission -Heart rate and blood pressure remain stable -Worsening kidney function (Cr 2.42 -> 2.71) and hypermagnesemia (3.0) on AM labs -Remains on IV furosemide 80 mg BID and will defer to nephrology for volume management (BEEF GRINDER diuretic dose torsemide 100 mg BID) -Continue PO spironolactone 25 mg BID -Continue potassium supplementation -Continue PO toPROL XL 50 mg QD -Continue strict I&Os and daily standing weights -Close monitoring of renal function/electrolytes with diuresis (Goal serum K > 4.0 and Mg > 2.0) 4. UTI -History of recurrent UTIs with this now being her 5th reported UTI this calendar year -Recommend permanently stopping Jardiance due to recurrent UTIs -Will defer to primary team for ongoing management 5. Hyperammonemia 6. Cirrhosis -Elevated ammonia levels with new Liver US findings suggestive of Cirrhosis -Newly diagnosed with cirrhosis which is suspected to be multifactorial secondary to chronic right heart failure, MCDONOUGH and ETOH use -Patient's mentation has improved with initiation of PO Lactulose and remains on 20gm BID -Will defer to gastroenterology and primary team for ongoing management Case discussed and coordinated with Dr. Lamar. Please see Dr. Lamar notes for further recommendations. I spent a total of 35 minutes coordinating, documenting, and providing care for this patient excluding time spent in the performance of separately billed services or time spent by another provider/QHP. SOFI Garrido Department of Cardiology Admission and Anticipated Discharge Date Admission Date: November 04, 2024 Supervising Physician Co-Signing Physician Notes I spent a total of 30 minutes on the date of service in preparation, delivery, and documentation of the care provided to this patient, excluding any time spent in the performance of separately billed services. I have personally performed a history and physical examination on the patient. I have reviewed the advance practitioner's documentation, and I agree with, and take responsibility for the plan of care. Subjective Seen by cardiology today for examination and follow-up. Resting comfortably in bed on room air. Feeling well with no acute events overnight. No confusion this morning. Shortness of breath continues to improve. Lower leg swelling remains unchanged. Denies chest pressure, pain, tachy palpitations, lightheadedness, syncope, orthopnea, PND, abdominal fullness, nausea or vomiting. AFIB with rates controlled in 70-90s upon 24 hour telemetry review. Chart, medications, and telemetry personally reviewed. Review of Systems Review of Systems: See HPI for pertinent positives. All others negative other than those noted in the HPI. CONSTITUTIONAL: No change in weight, No weakness, No fatigue, No fevers, No sweats or chills. HEENT: No visual changes, No epistaxis, No bleeding gums, No dysphagia, PULMONARY: No cough, sputum, or hemoptysis, No wheezing, No shortness of breath, and No recent change in breathing. CARDIOVASCULAR: +edema. No chest pain, No dyspnea on exertion, No palpitations, No syncope, No claudication, No calf pain. GASTROINTESTINAL: No change in appetite, No abdominal pain, No change in bowel habits, No significant heartburn, No nausea, No vomiting, No diarrhea, No constipation, No blood in stools or black tarry stools, No dysphagia. HEMATOLOGIC: No abnormal bleeding and No bruising. NEUROLOGICAL: No falls, No dizziness, No lightheadedness, Normal balance, No headaches, and No weakness. PSYCH: No sleep disturbances, No mood changes. Physical Exam Physical Exam: Vital signs within normal limits as above. General: Well developed and nourished. No acute distress. A+Ox3. HEENT: Normocephalic. Atraumatic. EOMI. Conjunctiva and sclera clear. NECK: Trachea midline. No thyromegaly. No carotid bruits. No JVD. Carotid upstrokes are brisk. Heart: Irregularly irregular rhythm. S1 and S2 noted. [place] mechanical heart sounds. Grade II/ murmur. No rubs or gallops. PMI non displaced. Lungs: No acute respiratory distress. Coarse crackles auscultated along bilateral lower lobes. No wheezes.No rhonchi. Abdomen: Normal bowel sounds. Soft. Nontender. No abdominal bruits. Extremities: Normal capillary refill. +1 BLE edema. No clubbing or cyanosis. Skin: Warm and dry. Bandage to LLE. NEURO: No focal deficits. PSYCH: Appropriate affect and insight. Results & Data Vital Signs (Past 12 Hours) Vital Signs Temp Pulse Resp BP Pulse Ox O2 Del Method O2 Flow Rate 11/07/24 03:20 36.6 C 91 H 17 127/81 100 Room Air 11/06/24 22:37 36.7 C 86 18 107/66 97 Room Air 11/06/24 20:23 Nasal Cannula 2 11/06/24 20:18 36.7 C 83 19 118/59 L 95 Room Air 11/06/24 19:54 75 18 97 Room Air Laboratory Results Coagulation 11/06/24 11/07/24 Range/Units 07:22 06:42 PT 34.5 H 50.5 H (9.0-12.0) Seconds CBC 11/07/24 Range/Units 06:42 WBC 7.00 (4.8-10.8) K/ul RBC 4.31 (4.20-5.40) M/uL Hgb 12.2 (12.0-16.0) g/dl Hct 39.4 (37.0-47.0) % Plt Count 149 (130-400) K/uL Comprehensive Metabolic Panel 11/06/24 11/07/24 Range/Units 07:22 06:42 Sodium 133 L 136 (136-145) mmol/L Potassium 4.5 4.4 (3.5-5.1) mmol/L Chloride 97 L 98 (98-107) mmol/L Carbon Dioxide 27 28 (21-32) mmol/L BUN 34 H 38 H (6-23) mg/dl Creatinine 2.42 H 2.71 H (0.6-1.2) mg/dl Glucose 93 109 H (70-99(Fasting)) mg/dl Calcium 9.8 10.0 (8.6-10.3) mg/dl Intake and Output 11/06/24 11/07/24 11/07/24 22:59 06:59 14:59 Intake Total 150 / 490 100 / 490 Output Total 1251 / 3151 1300 / 3151 Balance -1101 / -2661 -1200 / -2661 Intake: IV 50 / 50 cefTRIAXone SODIUM 2,000 mg In 50 / 50 50 ml @ 100 mls/hr IV Q24H PRISCILA Rx#:[id number] Oral 100 / 440 100 / 440 Output: Urine 1250 / 3150 1300 / 3150 # Bowel Movements Other: Weight 57.4 kg Weight Measurement Method Standing Scale PG Care Time/CCT Total # of Minutes Spent Total Time Spent with Patient: Total time spent is greater than 50% in coordination of care (as documented) at patient's floor/unit and/or counseling patient: [place] [id number] SUB INP/OBS CARE 2/35MIN Patient Type Established Diagnoses Acute on chronic heart failure with preserved ejection fraction (HFpEF) I50.33 UTI (urinary tract infection) N30.01 Hematuria presence: with hematuria Urinary tract infection type: acute cystitis Hyperammonemia E72.20 Cirrhosis K74.60 CKD (chronic kidney disease), stage IV N18.4 Time Spent (min) 35 (2) UTI (urinary tract infection) Hematuria presence: with hematuria Urinary tract infection type: acute cystitis Qualified Code(s): N30.01 - Acute cystitis with hematuria
--- NOTE | 2024-11-07 11:45 | Nephrology Progress Note ---
Date of Service November 07, 2024 Assessment & Plan Admission and Anticipated Discharge Date Admission Date: November 04, 2024 Subjective Assessment & Plan (1) VICKY (acute kidney injury): Admission creat is slightly higher than baseline. However creat today is about same/slightly better than yesterday. But this is still mostly CKD. has Sig heart Dz and now has Cirrhosis Also so makes much more prone to get VICKY now. Daily labs. I and O charting. avoid NSAIDS Currently creat is holding steady but abnormal and somewhat higher than baseline. needs Diuresis and will use Lasix 80 iv bid. Daily labs--cbc renal panel (2) CKD (chronic kidney disease), stage IV: baseline creat about 2 giving GFR < 30. cause is multifactorial from Dm and cardiac Dz + meds. (3) Acute on chronic heart failure with preserved ejection fraction (HFpEF): has Sig VHD and Chronic CHF. Now has congestion also. Conitnue Iv lasix like 80 bid while inpt. since iv lasix good urine response. (4) UTI (urinary tract infection): has recurrent UTI and now liver cirrhosis also so will suggest to permanently stop jardiance given this. (5) Cirrhosis: This is new Dx. Cause --cardiac cirrhosis/MCDONOUGH/Alcohol. Will now makes it even more difficult S--good urine response. feels slightly better. BP is fine. No abdominal pain. Energy levels and improving confusion. ROS--see HPI. 12 systems otherwise negative Physical Exam Physical Exam: General/Psych: ill appearing, lethargic Head: normocephalic, atraumatic. MM moist.Neck: Supple. JVD + Respiratory: normal respiratory effort, lungs diminished with crackles bases Cardiovascular: regular rate and rhythm, +murmur, +click, +JVD Extremities: Trace BLE edema. dark pigmentation Abdomen/GI: soft, nontender Neurologic/MSK: A+Ox3, moves all extremities Skin: BLE with chronic venous stasis changes Results & Data Vital Signs (Past 12 Hours) Vital Signs Temp Pulse Pulse Resp BP Pulse Ox O2 Del Method 11/07/24 11:34 36.6 C 81 19 100/61 94 Room Air 11/07/24 10:22 76 11/07/24 08:01 36.7 C 70 23 101/64 97 Room Air 11/07/24 07:58 78 18 97 Room Air 11/07/24 07:00 Nasal Cannula 11/07/24 03:20 36.6 C 91 H 17 127/81 100 Room Air O2 Flow Rate 11/07/24 11:34 11/07/24 10:22 11/07/24 08:01 11/07/24 07:58 11/07/24 07:00 2 11/07/24 03:20
--- NOTE | 2024-11-07 12:16 | Hospitalist Progress Note ---
Date of Service November 07, 2024 Assessment & Plan (1) Acute on chronic heart failure with preserved ejection fraction (HFpEF): (2) Severe tricuspid valve insufficiency: (3) Acute kidney injury superimposed on chronic kidney disease: (4) UTI (urinary tract infection): (5) A-fib: (6) Restrictive lung disease: (7) Nocturnal hypoxia: (8) Diabetes: (9) Hyperlipidemia: (10) Hypothyroidism: (11) Chronic pain: Plan 68 year old female with PMH significant for chronic diastolic heart failure (EF 60% April 2024), permanent A fib, severe TR status post recent Triclip procedure (Feb 2024), s/p LOOP (Mar 2021), rheumatic heart disease s/p mechanical MVR (1993) on Coumadin [INR goal 3-3.5], HTN, HLD, DMII, CKD IV, COPD, restrictive lung disease, nocturnal hypoxia, hypothyroidism, depression/anxiety, RLS, chronic pain, and esophageal dysmotility who presents to the ED on 11/04/2024 with lethargy and weight gain. Acute on chronic diastolic heart failure Patient presenting with lethargy and weight gain. 07/14/24 ECHO: ef 60-64%, LA and RA are severely enlarged, PASP 40 mmHg. CXR revealed marked cardiomegaly with pulmonary vascular congestion; question mild airspace opacities in right upper lung not excluding mild edema or mild pneumonitis BNP 271 On baseline O2 requirement of 2L while sleeping and BPs on softer side so will hold off on IV diuretics at this time, c/w home diuretics dose. Maintain FR 2L/day, pt states not being complaint w/ fluid intake at home. Continue diuresis (and potassium supplement) and spironolactone, appreciate cardio and nephro assistance. Pt reports improvement in her BLE swelling and breathing. Daily weights and monitor I&Os Low sodium diet and 2L FR Likely Metabolic encephalopathy (2/2 UTI) and/or acute hepatic encephalopathy: confusion noted at presentation, now resolved. Hyperammonemia Cirrhosis Patient lethargic likely secondary to UTI but also found to have hyperammonemia at presentation. Ongoing confusion in outpatient setting with no ischemic changes on head CT on 09/30/2024 and 11/04/24. Pt feels lethargy improving. is awake and alert. Liver US s/o cirrhosis and portal HTN. c/w lactulose GI evaled, recs are lactulose, low Na diet, OP EGD for variceal screening F/u w/ hepatology as OP. VICKY on CKD IV: Cr: 2.57. Baseline ~2.0. Avoid nephrotoxic agents as able. Cr 2.43, monitor Cr as pt needs ongoing diuresis. Nephrology consult: appreciate recs UTI: History of recurrent UTIs in setting of Jardiance. c/w rocephin 11/04. f/u UCx 11/04. dc jardiance on discharge, pt agreeable. Permanent atrial fibrillation Anticoagulated on Warfarin INR 5.4 today - goal is 3-3.5 OP chart reviewed 11/05 - pt take 2.5 mg on Mon and 3.75 mg all other days. Hold coumadin today, f/u INR in am. Rate controlled - continue metoprolol Restrictive lung disease/ Nocturnal hypoxia: Continue duonebs bid and inhalers daily. Continue 2L oxygen HS Hyperlipidemia, history of TIA: Continue statin Type 2 diabetes: A1C 7.4 in August 2024. Home Jardiance on hold. BSG ACHS and SSI while inpatient Chronic pain: Continue buprenorphine patch. Hold home tramadol in setting of lethargy Anxiety: Continue citalopram Hypothyroidism: Continue levothyroxine GERD: Continue PPI RLS: Continue ropinirole DVT Prophylaxis: on warfarin Code Status: FULL CODE PCP: Lesia Simmons PT/OT. Admission and Anticipated Discharge Date Admission Date: November 04, 2024 Subjective Patient was seen and examined at bedside. Patient was lying in bed, on room air, NAD, resting comfortably. Patient reports significant improvement in her breathing, reports improvement in her BLE swelling. Patient reports eating okay and moving bowels okay, denies any new acute events overnight. Physical Exam Physical Exam: General/Psych: ill appearing, sitting up in bed, NAD, Alert and oriented x 3. Head: normocephalic, atraumatic Eyes: normal inspection, PERRL, conjunctivae pink ENT: external ear and nose normal, oropharynx normal Neck: normal visual inspection, trachea midline Respiratory: normal respiratory effort, lungs diminished, no crackles appreciated, no accessory muscle use Cardiovascular: regular rate and rhythm, +murmur, +click, no JVD Extremities: no cyanosis or clubbing, normal peripheral pulses, 1+/trace BLE edema Abdomen/GI: normal bowel sounds, soft, nontender, no hepatosplenomegaly Neurologic/MSK: A+Ox3, moves all extremities Skin: BLE with chronic venous stasis changes, LLE with dressing c/d/i Results & Data Results & Data Vital Signs (Past 12 Hours) Vital Signs Temp Pulse Pulse Resp BP Pulse Ox O2 Del Method 11/07/24 11:34 36.6 C 81 19 100/61 94 Room Air 11/07/24 10:22 76 11/07/24 08:01 36.7 C 70 23 101/64 97 Room Air 11/07/24 07:58 78 18 97 Room Air 11/07/24 07:00 Nasal Cannula 11/07/24 03:20 36.6 C 91 H 17 127/81 100 Room Air O2 Flow Rate 11/07/24 11:34 11/07/24 10:22 11/07/24 08:01 11/07/24 07:58 11/07/24 07:00 2 11/07/24 03:20 (5) A-fib Atrial fibrillation type: longstanding persistent Qualified Code(s): I48.11 - Longstanding persistent atrial fibrillation (8) Diabetes Diabetes mellitus type: type 2 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
[2024-11-08 06:43] LABS: Hematocrit (blood only) 37.4 % (37.0-47.0); Hemoglobin 12.1 g/dl (12.0-16.0); Mean Corpuscular Hemoglobin 29.4 pg (25.0-34.0); Mean Corpuscular Volume 91.0 fL (80.0-100.0); Platelet Count 154 K/uL (130-400); RDW Standard Deviation 62.6 fL (36.4-46.3); Red Blood Count 4.11 M/uL (4.20-5.40); White Blood Count 6.24 K/ul (4.8-10.8)
[2024-11-08 07:14] LABS: Anion Gap 9.0 (3-11); Blood Urea Nitrogen 38.0 mg/dl (6-23); Calcium 10.0 mg/dl (8.6-10.3); Carbon Dioxide 28.0 mmol/L (21-32); Chloride 98.0 mmol/L (98-107); Creatinine Clr Calc Pharmacy 16.4 ml/min; Glucose 127.0 mg/dl (70-99(Fasting)); Potassium 4.5 mmol/L (3.5-5.1); Sodium 135.0 mmol/L (136-145)
[2024-11-08 07:15] LABS: INR 5.1 (0.9-1.1); Prothrombin Time 48.2 Seconds (9.0-12.0)
--- NOTE | 2024-11-08 07:55 | Cardiology Progress Note ---
Date of Service November 08, 2024 Assessment & Plan (1) Acute on chronic heart failure with preserved ejection fraction (HFpEF): (2) UTI (urinary tract infection): (3) Hyperammonemia: (4) Cirrhosis: (5) CKD (chronic kidney disease), stage IV: Plan Assessment: 69 year old medically complex female with PMHx significant for chronic HFpEF, permanent AFIB, severe TR s/p Triclip (02/2024), rheumatic heart disease s/p mechanical MVR (1993) on Coumadin admitted to [facility] on 11/04/24 for increased lethargy, confusion and weight gain. Admitted for E. coli UTI, acute on chronic HFpEF exacerbation, and hepatic encephalopathy with elevated ammonia level. Cardiology consulted for further assessment and recommendations. Plan: 1. Acute on chronic HFpEF, NYHA Class III 2. History of mixed valvular disease including severe tricuspid regurgitation status post Tricuspid clip (02/2024); however, unable to grasp all 3 leaflets (able to clip 2 of 3) 3. CKD stage IV -Good response to IV diuresis with total cumulative output 7.9 L and weight down 1.7 kg since admission -Kidney function slightly improved but remains elevated (baseline creatinine about 2) -IV diuretics held this morning due to soft BPs -Continue PO spironolactone 25 mg BID -Continue potassium supplementation -Continue PO toPROL XL 50 mg QD -Continue strict I&Os and daily standing weights -Close monitoring of renal function/electrolytes with diuresis (Goal serum K > 4.0 and Mg > 2.0) -Followed by nephrology for CKD and will defer to them ongoing volume management 4. UTI -History of recurrent UTIs with this now being her 5th reported UTI this calendar year -Advised to permanently stopping Jardiance due to recurrent UTIs -Will defer to primary team for ongoing management 5. Hyperammonemia 6. Cirrhosis -Elevated ammonia levels with new Liver US findings suggestive of Cirrhosis -Newly diagnosed with cirrhosis which is suspected to be multifactorial secondary to chronic right heart failure, MCDONOUGH and ETOH use -Patient's mentation has improved with initiation of PO Lactulose and remains on 20gm BID -Will defer to gastroenterology and primary team for ongoing management Case discussed and coordinated with Dr. Lamar. Please see Dr. Lamar notes for further recommendations. I spent a total of 35 minutes coordinating, documenting, and providing care for this patient excluding time spent in the performance of separately billed services or time spent by another provider/QHP. SOFI Garrido Department of Cardiology Admission and Anticipated Discharge Date Admission Date: November 04, 2024 Supervising Physician Co-Signing Physician Notes I spent a total of 30 minutes on the date of service in preparation, delivery, and documentation of the care provided to this patient, excluding any time spent in the performance of separately billed services. I have personally performed a history and physical examination on the patient. I have reviewed the advance practitioner's documentation, and I agree with, and take responsibility for the plan of care. Diuretic management per nephrology. Patient can follow-up with cardiology in 1 to 2 weeks. Subjective Seen by cardiology today for examination and follow-up. Resting comfortably in chair on room air. Shortness of breath and lower leg swelling improved with IV diuresis. Feels like she is almost back to her baseline. Denies exertional chest discomfort, dyspnea on exertion or positional lightheadedness with transferring from bed to chair this morning. Denies orthopnea, PND, or worsening edema. Atrial fibrillation with rates controlled in 80-90s upon 24 hr telemetry review. Chart, medications, and telemetry personally reviewed. Review of Systems Review of Systems: See HPI for pertinent positives. All others negative other than those noted in the HPI. CONSTITUTIONAL: No change in weight, No weakness, No fatigue, No fevers, No sweats or chills. HEENT: No visual changes, No epistaxis, No bleeding gums, No dysphagia, PULMONARY: No cough, sputum, or hemoptysis, No wheezing, No shortness of breath, and No recent change in breathing. CARDIOVASCULAR: +edema. No chest pain, No dyspnea on exertion, No palpitations, No syncope, No claudication, No calf pain. GASTROINTESTINAL: No change in appetite, No abdominal pain, No change in bowel habits, No significant heartburn, No nausea, No vomiting, No diarrhea, No constipation, No blood in stools or black tarry stools, No dysphagia. HEMATOLOGIC: No abnormal bleeding and No bruising. NEUROLOGICAL: No falls, No dizziness, No lightheadedness, Normal balance, No headaches, and No weakness. PSYCH: No sleep disturbances, No mood changes. Physical Exam Physical Exam: Vital signs within normal limits as above. General: Well developed and nourished. No acute distress. A+Ox3. HEENT: Normocephalic. Atraumatic. EOMI. Conjunctiva and sclera clear. NECK: Trachea midline. No thyromegaly. No carotid bruits. No JVD. Carotid upstrokes are brisk. Heart: Irregularly irregular rhythm. S1 and S2 noted. [place] mechanical heart sounds. Grade II/ murmur. No rubs or gallops. PMI non displaced. Lungs: No acute respiratory distress. Coarse crackles auscultated along bilateral lower lobes. No wheezes.No rhonchi. Abdomen: Normal bowel sounds. Soft. Nontender. No abdominal bruits. Extremities: Normal capillary refill. +1 BLE edema. No clubbing or cyanosis. Skin: Warm and dry. Bandage to LLE. NEURO: No focal deficits. PSYCH: Appropriate affect and insight. Results & Data Vital Signs (Past 12 Hours) Vital Signs Temp Pulse Resp BP Pulse Ox O2 Del Method 11/08/24 07:17 36.5 C 78 16 104/58 L 96 Room Air 11/08/24 07:12 63 16 94 Room Air 11/08/24 07:00 Room Air 11/08/24 02:59 36.4 C L 86 19 135/84 94 Room Air 11/07/24 23:23 36.5 C 79 19 120/67 100 Room Air Laboratory Results Coagulation 11/08/24 Range/Units 06:16 PT 48.2 H (9.0-12.0) Seconds CBC 11/08/24 Range/Units 06:16 WBC 6.24 (4.8-10.8) K/ul RBC 4.11 L (4.20-5.40) M/uL Hgb 12.1 (12.0-16.0) g/dl Hct 37.4 (37.0-47.0) % Plt Count 154 (130-400) K/uL Comprehensive Metabolic Panel 11/08/24 Range/Units 06:16 Sodium 135 L (136-145) mmol/L Potassium 4.5 (3.5-5.1) mmol/L Chloride 98 (98-107) mmol/L Carbon Dioxide 28 (21-32) mmol/L BUN 38 H (6-23) mg/dl Creatinine 2.50 H (0.6-1.2) mg/dl Glucose 127 H (70-99(Fasting)) mg/dl Calcium 10.0 (8.6-10.3) mg/dl Intake and Output 11/07/24 11/08/24 11/08/24 22:59 06:59 14:59 Intake Total 390 / 1070 200 / 1070 Output Total 901 / 2401 1300 / 2401 Balance -511 / -1331 -1100 / -1331 Intake: IV 50 / 50 cefTRIAXone SODIUM 2,000 mg In 50 / 50 50 ml @ 100 mls/hr IV Q24H PRISCILA Rx#:[id number] Oral 340 / 1020 200 / 1020 Output: Urine 900 / 2400 1300 / 2400 # Bowel Movements Other: Weight 57.4 kg Weight Measurement Method Standing Scale PG Care Time/CCT Total # of Minutes Spent Total Time Spent with Patient: Total time spent is greater than 50% in coordination of care (as documented) at patient's floor/unit and/or counseling patient: [place] [id number] SUB INP/OBS CARE 3/50MIN Patient Type Established Diagnoses Acute on chronic heart failure with preserved ejection fraction (HFpEF) I50.33 UTI (urinary tract infection) N30.01 Hematuria presence: with hematuria Urinary tract infection type: acute cystitis Hyperammonemia E72.20 Cirrhosis K74.60 CKD (chronic kidney disease), stage IV N18.4 Time Spent (min) 35 (2) UTI (urinary tract infection) Hematuria presence: with hematuria Urinary tract infection type: acute cystitis Qualified Code(s): N30.01 - Acute cystitis with hematuria
--- NOTE | 2024-11-08 10:47 | Hospitalist Progress Note ---
Date of Service November 08, 2024 Assessment & Plan (1) Acute on chronic heart failure with preserved ejection fraction (HFpEF): (2) Severe tricuspid valve insufficiency: (3) Acute kidney injury superimposed on chronic kidney disease: (4) UTI (urinary tract infection): (5) A-fib: (6) Restrictive lung disease: (7) Nocturnal hypoxia: (8) Diabetes: (9) Hyperlipidemia: (10) Hypothyroidism: (11) Chronic pain: Plan 68 year old female with PMH significant for chronic diastolic heart failure (EF 60% April 2024), permanent A fib, severe TR status post recent Triclip procedure (Feb 2024), s/p LOOP (Mar 2021), rheumatic heart disease s/p mechanical MVR (1993) on Coumadin [INR goal 3-3.5], HTN, HLD, DMII, CKD IV, COPD, restrictive lung disease, nocturnal hypoxia, hypothyroidism, depression/anxiety, RLS, chronic pain, and esophageal dysmotility who presents to the ED on 11/04/2024 with lethargy and weight gain. Acute on chronic diastolic heart failure Patient presenting with lethargy and weight gain. 07/14/24 ECHO: ef 60-64%, LA and RA are severely enlarged, PASP 40 mmHg. CXR revealed marked cardiomegaly with pulmonary vascular congestion; question mild airspace opacities in right upper lung not excluding mild edema or mild pneumonitis BNP 271 On baseline O2 requirement of 2L while sleeping and BPs on softer side so will hold off on IV diuretics at this time, c/w home diuretics dose. Maintain FR 2L/day, pt states not being complaint w/ fluid intake at home. Continue diuresis (and potassium supplement) and spironolactone, appreciate cardio and nephro assistance. Pt reports improvement in her BLE swelling and breathing. Daily weights and monitor I&Os Low sodium diet and 2L FR Likely Metabolic encephalopathy (2/2 UTI) and/or acute hepatic encephalopathy: confusion noted at presentation, now resolved. Hyperammonemia Cirrhosis Patient lethargic likely secondary to UTI but also found to have hyperammonemia at presentation. Ongoing confusion in outpatient setting with no ischemic changes on head CT on 09/30/2024 and 11/04/24. Pt feels lethargy improving. is awake and alert. Liver US s/o cirrhosis and portal HTN. c/w lactulose GI evaled, recs are lactulose, low Na diet, OP EGD for variceal screening F/u w/ hepatology as OP. VICKY on CKD IV: Cr: 2.57. Baseline ~2.0. Avoid nephrotoxic agents as able. Cr 2.43, monitor Cr as pt needs ongoing diuresis. Nephrology consult: appreciate recs UTI: History of recurrent UTIs in setting of Jardiance. c/w rocephin 11/04. f/u UCx 11/04. dc jardiance on discharge, pt agreeable. Permanent atrial fibrillation Anticoagulated on Warfarin INR 5.4 today - goal is 3-3.5 OP chart reviewed 11/05 - pt take 2.5 mg on Mon and 3.75 mg all other days. Hold coumadin today, f/u INR in am. Rate controlled - continue metoprolol Restrictive lung disease/ Nocturnal hypoxia: Continue duonebs bid and inhalers daily. Continue 2L oxygen HS Hyperlipidemia, history of TIA: Continue statin Type 2 diabetes: A1C 7.4 in August 2024. Home Jardiance on hold. BSG ACHS and SSI while inpatient Chronic pain: Continue buprenorphine patch. Hold home tramadol in setting of lethargy Anxiety: Continue citalopram Hypothyroidism: Continue levothyroxine GERD: Continue PPI RLS: Continue ropinirole DVT Prophylaxis: on warfarin Code Status: FULL CODE PCP: Lesia Simmons PT/OT. Admission and Anticipated Discharge Date Admission Date: November 04, 2024 Subjective Patient was seen and examined at bedside. Patient was lying in bed, on room air, NAD, resting comfortably. Patient reports significant improvement in her breathing, reports improvement in her BLE swelling. Patient reports eating okay and moving bowels okay, denies any new acute events overnight. Physical Exam Physical Exam: General/Psych: ill appearing, sitting up in bed, NAD, Alert and oriented x 3. Head: normocephalic, atraumatic Eyes: normal inspection, PERRL, conjunctivae pink ENT: external ear and nose normal, oropharynx normal Neck: normal visual inspection, trachea midline Respiratory: normal respiratory effort, lungs diminished, no crackles appreciated, no accessory muscle use Cardiovascular: regular rate and rhythm, +murmur, +click, no JVD Extremities: no cyanosis or clubbing, normal peripheral pulses, trace BLE edema Abdomen/GI: normal bowel sounds, soft, nontender, no hepatosplenomegaly Neurologic/MSK: A+Ox3, moves all extremities Skin: BLE with chronic venous stasis changes, LLE with dressing c/d/i Results & Data Results & Data Vital Signs (Past 12 Hours) Vital Signs Temp Pulse Pulse Resp BP Pulse Ox O2 Del Method 11/08/24 10:41 72 11/08/24 07:17 36.5 C 78 16 104/58 L 96 Room Air 11/08/24 07:12 63 16 94 Room Air 11/08/24 07:00 Room Air 11/08/24 02:59 36.4 C L 86 19 135/84 94 Room Air 11/07/24 23:23 36.5 C 79 19 120/67 100 Room Air (5) A-fib Atrial fibrillation type: longstanding persistent Qualified Code(s): I48.11 - Longstanding persistent atrial fibrillation (8) Diabetes Diabetes mellitus type: type 2 Diabetes mellitus custodial insulin use: without vermin exterminator use Diabetes mellitus complication status: without complication Qualified Code(s): E11.9 - Type 2 diabetes mellitus without complications (9) Hyperlipidemia Hyperlipidemia type: unspecified Qualified Code(s): E78.5 - Hyperlipidemia, unspecified (10) Hypothyroidism Hypothyroidism type: postablative Qualified Code(s): E89.0 - Postprocedural hypothyroidism
--- NOTE | 2024-11-08 13:49 | Nephrology Progress Note ---
Date of Service November 08, 2024 Assessment & Plan Admission and Anticipated Discharge Date Admission Date: November 04, 2024 Subjective Assessment & Plan (1) VICKY (acute kidney injury): Admission creat is slightly higher than baseline. However creat today is about same/slightly better than yesterday. But this is still mostly CKD. has Sig heart Dz and now has Cirrhosis Also so makes much more prone to get VICKY now. Daily labs. I and O charting. avoid NSAIDS Currently creat is holding steady but abnormal and somewhat higher than baseline. Creat came down a bit from yesterday needs Diuresis and will continue Lasix 80 iv bid. As per RN she got lasix in AM and was about to get another dose Daily labs--cbc renal panel (2) CKD (chronic kidney disease), stage IV: baseline creat about 2 giving GFR < 30. cause is multifactorial from Dm and cardiac Dz + meds. (3) Acute on chronic heart failure with preserved ejection fraction (HFpEF): has Sig VHD and Chronic CHF. Now has congestion also. Conitnue Iv lasix like 80 bid while inpt. since iv lasix good urine response. (4) UTI (urinary tract infection): has recurrent UTI and now liver cirrhosis also so will suggest to permanently stop jardiance given this. (5) Cirrhosis: This is new Dx. Cause --cardiac cirrhosis/MCDONOUGH/Alcohol. Will now makes it even more difficult S--good urine response. feels slightly better. BP is fine. No abdominal pain. Energy levels and improving confusion. ROS--see HPI. 12 systems otherwise negative Physical Exam Physical Exam: General/Psych: ill appearing, lethargic Head: normocephalic, atraumatic. MM moist.Neck: Supple. JVD + Respiratory: normal respiratory effort, lungs diminished with crackles bases Cardiovascular: regular rate and rhythm, +murmur, +click, +JVD Extremities: Trace BLE edema. dark pigmentation Abdomen/GI: soft, nontender Neurologic/MSK: A+Ox3, moves all extremities Skin: BLE with chronic venous stasis changes Results & Data Vital Signs (Past 12 Hours) Vital Signs Temp Pulse Pulse Resp BP Pulse Ox O2 Del Method 11/08/24 10:49 36.5 C 82 16 112/60 95 Room Air 11/08/24 10:41 72 11/08/24 07:17 36.5 C 78 16 104/58 L 96 Room Air 11/08/24 07:12 63 16 94 Room Air 11/08/24 07:00 Room Air 11/08/24 02:59 36.4 C L 86 19 135/84 94 Room Air
[2024-11-09 06:48] LABS: Hematocrit (blood only) 38.6 % (37.0-47.0); Hemoglobin 11.9 g/dl (12.0-16.0); Mean Corpuscular Hemoglobin 28.2 pg (25.0-34.0); Mean Corpuscular Volume 91.5 fL (80.0-100.0); Platelet Count 152 K/uL (130-400); RDW Standard Deviation 63.1 fL (36.4-46.3); Red Blood Count 4.22 M/uL (4.20-5.40); White Blood Count 5.68 K/ul (4.8-10.8)
[2024-11-09 07:08] VITALS: RESP 18
[2024-11-09 07:25] LABS: Anion Gap 9.0 (3-11); Blood Urea Nitrogen 34.0 mg/dl (6-23); Calcium 9.9 mg/dl (8.6-10.3); Carbon Dioxide 28.0 mmol/L (21-32); Chloride 97.0 mmol/L (98-107); Creatinine Clr Calc Pharmacy 16.1 ml/min; Glucose 87.0 mg/dl (70-99(Fasting)); Potassium 4.3 mmol/L (3.5-5.1); Sodium 134.0 mmol/L (136-145)
[2024-11-09 07:26] LABS: INR 3.9 (0.9-1.1); Prothrombin Time 37.3 Seconds (9.0-12.0)
[2024-11-09 11:25] VITALS: BP 100/63; PULSE 81; TEMP 97.9; O2SAT 96
--- NOTE | 2024-11-09 11:37 | Nephrology Progress Note ---
Date of Service November 09, 2024 Assessment & Plan (1) CKD (chronic kidney disease), stage IV: Plan: baseline creat about 2.5-2.8 giving GFR < 30. cause is multifactorial from Dm and cardiac Dz + meds. Admission creat 2.6, peak creatinine 2.7 on 11/07. creatinine plateaud at 2.5; baseline 2.5-2.8 summer 2024 as OP. But this is still mostly CKD. has Sig heart Dz and now has Cirrhosis Also so makes much more prone to get VICKY now. -Daily labs. I and O charting. -avoid NSAIDS -hgb 11.9 > no f/u needed on anemia specifically ok from neph standpoint to d/c home would resume prior to admission outpatient diuretics, daily standing weights w/ log, less than 2 gm daily Na diet, prior to admission fluid limit -> she and I can discuss risks/benefits/indications for /against jardiance as OP > do not resume at d/c; she has had multiple UTI this year hospital d/c appt w/ me pls in 7-10 days bmp, mag to be ordered by neph nurse in the week prior to appt w/ me care coordinated w/ Dr Lara regarding d/c medications, d/c dispo; we are in agreement (2) Acute on chronic heart failure with preserved ejection fraction (HFpEF): Plan: has Sig VHD and Chronic CHF. Now has congestion also. Already on very high dose of Diuretics at home. She already takes 100 bid of torsemide and weekly metolazone + Aldactone 25 at home. -tolerating Iv lasix like 80 bid while inpt > resume OP diuretics (3) UTI (urinary tract infection): Plan: has recurrent UTI. will suggest to permanently stop jardiance given this. (4) Cirrhosis: Plan: This is new Dx reportedly. Cause --cardiac cirrhosis/MCDONOUGH. Admission and Anticipated Discharge Date Admission Date: November 04, 2024 Subjective Assessment & Plan (1) VICKY (acute kidney injury): Admission creat is slightly higher than baseline. However creat today is about same/slightly better than yesterday. But this is still mostly CKD. has Sig heart Dz and now has Cirrhosis Also so makes much more prone to get VICKY now. Daily labs. I and O charting. avoid NSAIDS Currently creat is holding steady but abnormal and somewhat higher than baseline. Creat came down a bit from yesterday needs Diuresis and will continue Lasix 80 iv bid. As per RN she got lasix in AM and was about to get another dose Daily labs--cbc renal panel (2) CKD (chronic kidney disease), stage IV: baseline creat about 2 giving GFR < 30. cause is multifactorial from Dm and cardiac Dz + meds. (3) Acute on chronic heart failure with preserved ejection fraction (HFpEF): has Sig VHD and Chronic CHF. Now has congestion also. Conitnue Iv lasix like 80 bid while inpt. since iv lasix good urine response. (4) UTI (urinary tract infection): has recurrent UTI and now liver cirrhosis also so will suggest to permanently stop jardiance given this. (5) Cirrhosis: This is new Dx. Cause --cardiac cirrhosis/MCDONOUGH/Alcohol. Will now makes it even more difficult S--good urine response. feels slightly better. BP is fine. No abdominal pain. Energy levels and improving confusion. ROS--see HPI. 12 systems otherwise negative Physical Exam Physical Exam: General/Psych: ill appearing, lethargic Head: normocephalic, atraumatic. MM moist.Neck: Supple. JVD + Respiratory: normal respiratory effort, lungs diminished with crackles bases Cardiovascular: regular rate and rhythm, +murmur, +click, +JVD Extremities: Trace BLE edema. dark pigmentation Abdomen/GI: soft, nontender Neurologic/MSK: A+Ox3, moves all extremities Skin: BLE with chronic venous stasis changes Results & Data Vital Signs (Past 12 Hours) Vital Signs Temp Pulse Resp BP Pulse Ox O2 Del Method O2 Flow Rate 11/09/24 11:24 36.6 C 81 18 100/63 96 Room Air 11/09/24 07:28 36.5 C 63 18 105/64 98 Room Air 11/09/24 07:06 73 18 96 Room Air 11/09/24 03:36 36.7 C 66 17 109/59 L 99 Nasal Cannula 2 Laboratory Results 11/09/24 06:23 11/09/24 06:23 (3) UTI (urinary tract infection) Hematuria presence: with hematuria Urinary tract infection type: acute cystitis Qualified Code(s): N30.01 - Acute cystitis with hematuria
--- NOTE | 2024-11-09 13:02 | Discharge Summary ---
Date of Service November 09, 2024 Admission HPI Per Admitting Provider 68 year old female with PMH significant for chronic diastolic heart failure (EF 60% April 2024), permanent A fib, severe TR status post recent Triclip procedure (Feb 2024), s/p LOOP (Mar 2021), rheumatic heart disease s/p mechanical MVR (1993) on Coumadin, HTN, HLD, DMII, CKD IV, COPD, restrictive lung disease, nocturnal hypoxia, hypothyroidism, depression/anxiety, RLS, chronic pain, and esophageal dysmotility who presents to the ED on 11/04/2024 with lethargic and weight gain. History obtained from patient's caregiver and cousin, Moris, as patient cannot stay awake to provide history. He reports the patient has been more confused than lately since the weekend with increasing lethargy to the point where she cannot stay awake for more than a few minutes. He reports that patient has been confused over the last several weeks in correlation with recurrent UTIs since being started on Jardiance. He reports she has had four UTIs so far this year. He notes she had an outpatient head CT that showed age related changes but nothing else abnormal. Also reports weight gain despite increasing doses of diuretics. She takes metolazone once weekly and had it last on 10/30 and since then her weight has continued to increase despite 7-8L of output daily. Also notes blood pressures on the softer side around 90/60 when her baseline is typically 100-115/60. Denies fevers, chills, cough, congestion, chest pain, SOB, abdominal pain, N/V/D. Admission Exam Per Admitting Provider General/Psych: ill appearing, sitting up in bed, NAD, lethargic and unable to stay awake Head: normocephalic, atraumatic Eyes: normal inspection, PERRL, conjunctivae pink ENT: external ear and nose normal, oropharynx normal Neck: normal visual inspection, trachea midline Respiratory: normal respiratory effort, lungs diminished with crackles appreciated in right base, no accessory muscle use Cardiovascular: regular rate and rhythm, +murmur, +click, no JVD Extremities: no cyanosis or clubbing, normal peripheral pulses, trace BLE edema Abdomen/GI: normal bowel sounds, soft, nontender, no hepatosplenomegaly Neurologic/MSK: A+Ox3, moves all extremities Skin: BLE with chronic venous stasis changes, blister to LLE with dressing c/d/i Principal Diagnosis Acute on chronic diastolic heart failure Likely Metabolic encephalopathy (2/2 UTI) and/or acute hepatic encephalopathy Hyperammonemia Cirrhosis VICKY on CKD IV UTI Permanent atrial fibrillation Discharge Exam General/Psych: chronically ill appearing, sitting up in bed, NAD, Alert and oriented x 3. Head: normocephalic, atraumatic Eyes: normal inspection, PERRL, conjunctivae pink ENT: external ear and nose normal, oropharynx normal Neck: normal visual inspection, trachea midline Respiratory: normal respiratory effort, lungs diminished, no crackles appreciated, no accessory muscle use Cardiovascular: regular rate and rhythm, +murmur, +click, no JVD Extremities: no cyanosis or clubbing, normal peripheral pulses, trace BLE edema Abdomen/GI: normal bowel sounds, soft, nontender, no hepatosplenomegaly Neurologic/MSK: A+Ox3, moves all extremities Skin: BLE with chronic venous stasis changes, LLE with dressing c/d/i Discharge Data Allergies Allergy/AdvReac Type Severity Reaction Status Date / Time budesonide Allergy Severe could not Verified 11/04/24 18:17 breath enoxaparin [From Lovenox] Allergy Unknown ON Verified 11/04/24 18:17 [facility] hydroxyzine AdvReac Severe DYSTONIA Verified 11/04/24 18:17 prochlorperazine AdvReac Severe NUCHAL Verified 11/04/24 18:17 DYSTONIA promethazine AdvReac Severe NUCHAL Verified 11/04/24 18:17 DYSTONIA PERRY Inhibitors AdvReac Intermediate COUGH Verified 11/04/24 18:17 gabapentin AdvReac Intermediate CONFUSION/D Verified 11/04/24 18:17 ROWSY lisinopril AdvReac Intermediate Cough Verified 11/04/24 18:17 metformin AdvReac Intermediate DIARRHEA Verified 11/04/24 18:17 oxycodone AdvReac Intermediate NUMB ALL Verified 11/04/24 18:17 OVER parsley AdvReac Intermediate AGITATION Verified 11/04/24 18:18 tetracycline AdvReac Intermediate NAUSEA/VOMI Verified 11/04/24 18:18 TING ondansetron [From Zofran] AdvReac nuchal Verified 11/04/24 18:18 dystonia Consultations 11/04/24 17:57 ED Decision to Admit Stat 11/04/24 21:47 Consult Cardiology Routine Consult Gastroenterology Routine Consult Nephrology Routine Ordered Studies 11/04/24 18:[address] [CT head/brain wo con] Urgent US liver Urgent Hospital Course (1) Acute on chronic heart failure with preserved ejection fraction (HFpEF): (2) Severe tricuspid valve insufficiency: (3) Acute kidney injury superimposed on chronic kidney disease: (4) UTI (urinary tract infection): (5) A-fib: (6) Restrictive lung disease: (7) Nocturnal hypoxia: (8) Diabetes: (9) Hyperlipidemia: (10) Hypothyroidism: (11) Chronic pain: Plan 68 year old female with PMH significant for chronic diastolic heart failure (EF 60% April 2024), permanent A fib, severe TR status post recent Triclip procedure (Feb 2024), s/p LOOP (Mar 2021), rheumatic heart disease s/p mechanical MVR (1993) on Coumadin [INR goal 3-3.5], HTN, HLD, DMII, CKD IV, COPD, restrictive lung disease, nocturnal hypoxia, hypothyroidism, depression/anxiety, RLS, chronic pain, and esophageal dysmotility who presents to the ED on 11/04/2024 with lethargy and weight gain. Acute on chronic diastolic heart failure Patient presenting with lethargy and weight gain. 07/14/24 ECHO: ef 60-64%, LA and RA are severely enlarged, PASP 40 mmHg. CXR revealed marked cardiomegaly with pulmonary vascular congestion; question mild airspace opacities in right upper lung not excluding mild edema or mild pneumonitis BNP 271 On baseline O2 requirement of 2L while sleeping and BPs on softer side so will hold off on IV diuretics at this time, c/w home diuretics dose. Maintain FR 2L/day, pt states not being complaint w/ fluid intake at home. D/w nephrology, ok to dc w/ prior home doses of diuretics. Pt reports improvement in her BLE swelling and breathing. Low sodium diet and 2L FR f/u w/ nephro and cardio in 1-2 weeks on dc. Likely Metabolic encephalopathy (2/2 UTI) and/or acute hepatic encephalopathy: confusion noted at presentation, now resolved. Hyperammonemia Cirrhosis Patient lethargic likely secondary to UTI but also found to have hyperammonemia at presentation. Ongoing confusion in outpatient setting with no ischemic changes on head CT on 09/30/2024 and 11/04/24. Pt feels lethargy improving. is awake and alert. Liver US s/o cirrhosis and portal HTN. c/w lactulose GI evaled, recs are lactulose, low Na diet, OP EGD for variceal screening F/u w/ hepatology as OP. VICKY on CKD IV: Cr: 2.57. Baseline ~2.0. Avoid nephrotoxic agents as able. Cr 2.43, monitor Cr as pt needs ongoing diuresis. Nephrology consult: appreciate recs UTI: History of recurrent UTIs in setting of Jardiance. c/w rocephin 11/04. f/u UCx 11/04. dc jardiance on discharge, pt agreeable. Permanent atrial fibrillation Anticoagulated on Warfarin INR 3.9 today - goal is 3-3.5 OP chart reviewed 11/05 - pt take 2.5 mg on Mon and 3.75 mg all other days. Hold coumadin today, pt and her caregiver moris updated the need to f/u w/ coumadin clinic tomorrow. Rate controlled - continue metoprolol Restrictive lung disease/ Nocturnal hypoxia: Continue duonebs bid and inhalers daily. Continue 2L oxygen HS Hyperlipidemia, history of TIA: Continue statin Type 2 diabetes: A1C 7.4 in August 2024. Home Jardiance on hold. BSG ACHS and SSI while inpatient Chronic pain: Continue buprenorphine patch. Hold home tramadol in setting of lethargy Anxiety: Continue citalopram Hypothyroidism: Continue levothyroxine GERD: Continue PPI RLS: Continue ropinirole DVT Prophylaxis: on warfarin Code Status: FULL CODE PCP: Lesia Simmons PT/OT. Patient is being discharged home with home health with following instructions at the point of discharge: Follow-up with your primary care physician within a week time and likely you will need labs CBC/CMP/magnesium/phosphorus. You were managed for acute on chronic heart failure and acute on chronic kidney injury. Cardiology and nephrology evaluated you. You can resume your home doses of diuretics. Follow-up with cardiology and nephrology in 1 to 2 weeks time upon discharge. You were also diagnosed with liver cirrhosis, GI physician evaluated you. You are being discharged on lactulose, take lactulose 2-3 times a day with a goal of 3-5 bowel movements a day. It is advised that you establish with GI physician as an outpatient for possible endoscopic evaluation and ongoing evaluation for your liver cirrhosis. You completed the course of antibiotic for UTI while in hospital. Because of recurrent UTI, recommend that you stop taking Jardiance going forward. Your PT/INR is 3.9 today, continue to hold your Coumadin today, recommend that you get PT/INR daily in coordination with the Coumadin clinic and have your doses adjusted accordingly as discussed. Take your medications as prescribed. Please make sure that you are able to get your medications today by calling your pharmacy before you leave the hospital so that your treatment continuity is not broken. Home Health Attestation I certify that this patient is under my care and that I, or a physicians bilingual executive assistant working with me, had a face to-face encounter that meets the home health [id number] encounter requirements with this patient. The encounter with the patient was in whole, or in part, for the following medical condition, which is the primary reason for home health care (list medica l condition): I certify that, based on my findings, the following services are medically necessary home health services: My clinical findings support the need for the above services because: Further, I certify that my clinical findings support that this patient is homebound (i.e. absences from home require considerable and taxing effort and are for medical reasons or adventism services or infrequently or of short duration when for other reasons) because: Certification for Home Health Services: Based on the above findings, I certify that this patient is confined to the home and needs intermittent care home care, physical therapy and/or speech therapy or continues to need occupational therapy. The patient is under my care, and I have initiated the establishment of the plan of care. This patient will be followed by a physician who will periodically review the plan of care. Total Time Total Time Spent Total Time Spent (In Minutes): 45 Discharge Plan Discharge Items Patient Disposition: Home - Home Health Services Reason For Visit: LETHARGY AND WEIGHT GAIN Discharge Diagnosis: Acute on chronic diastolic heart failure Likely Metabolic encephalopathy (2/2 UTI) and/or acute hepatic encephalopathy Hyperammonemia Cirrhosis VICKY on CKD IV UTI Permanent atrial fibrillation Condition on Discharge: Fair Activity: Resume your previous activity Non-emergency contact: Primary Care Provider Call non-emergency contact if: you have any medication questions and your symptoms worsen Follow-up/Referrals: Aliyah Lacey MD, PhD [Physician] - (The office will call you with a follow up appointment.) Lesia English MD [Primary Care Provider] - (Date & Time 11/13/2024 2:00 PM Provider: Lesia Morton MD [facility]) Diet: Carb Consistent or DM2 and Low Sodium (2gm) Fluids: 1800ml (7 cups) Addtl Attending Provider Instructions: Follow-up with your primary care physician within a week time and likely you will need labs CBC/CMP/magnesium/phosphorus. You were managed for acute on chronic heart failure and acute on chronic kidney injury. Cardiology and nephrology evaluated you. You can resume your home doses of diuretics. Follow-up with cardiology and nephrology in 1 to 2 weeks time upon discharge. You were also diagnosed with liver cirrhosis, GI physician evaluated you. You are being discharged on lactulose, take lactulose 2-3 times a day with a goal of 3-5 bowel movements a day. It is advised that you establish with GI physician as an outpatient for possible endoscopic evaluation and ongoing evaluation for your liver cirrhosis. You completed the course of antibiotic for UTI while in hospital. Because of recurrent UTI, recommend that you stop taking Jardiance going forward. Your PT/INR is 3.9 today, continue to hold your Coumadin today, recommend that you get PT/INR daily in coordination with the Coumadin clinic and have your doses adjusted accordingly as discussed. Take your medications as prescribed. Please make sure that you are able to get your medications today by calling your pharmacy before you leave the hospital so that your treatment continuity is not broken. Pending Studies at Discharge: No Stand-Alone Forms: [facility] Molecular Sensing, Smoking Cessation Medications and DC Order Prescriptions: New lactulose 10 gram/15 mL Solution 20 g PO BID Qty: 3785 0RF Continued (DME) Oxygen Home Liters Per Minute See Rx Instructions .Route Qty: 1 0RF Rx Instructions: Nocturnal oxygen at 2lpm vial NC/ Stationary concentrator/ LON99 (DME) Oxygen Home Liters Per Minute See Rx Instructions .Route Qty: 2 0RF Rx Instructions: Oxygen himidification and supplies -LON99 Combivent Respimat 20-100 mcg/actuation mist 1 puff INHALATION QID PRN (Reason: Shortness Of Breath) Qty: 12 2RF Rx Instructions: 11/04/24 : CURRENTLY USING BID AND ADDITIONALLY , IF NEEDED. ipratropium-albuterol 0.5 mg-3 mg(2.5 mg base)/3 mL solution for nebulization 3 ml INHALATION QID PRN (Reason: shortness of breath or wheezing) Qty: 1080 0RF Rx Instructions: 11/04/24 : USED MINIMALLY BID (DME) Incentive Spirometer Misc See Rx Instructions .MEDSUPPLY Qty: 1 0RF Rx Instructions: As directed levothyroxine 100 mcg tablet 100 mcg PO DAILYBB folic acid 1 mg Tablet 1 mg PO QAM Qty: 30 0RF spironolactone 25 mg Tablet 25 mg PO AMPM nitroglycerin [Nitrostat] 0.4 mg Tablet, Sublingual 0.4 mg Sublingual DIRECTED PRN (Reason: Chest Pain) omeprazole 20 mg Capsule,Delayed Release(Dr/Ec) 20 mg PO QAM PRN (Reason: Gi Upset) cholecalciferol (vitamin D3) [Vitamin D3] 1,000 unit Capsule 1,000 unit PO Q OTHER DAY citalopram 10 mg tablet 10 mg PO QAM tramadol 50 mg tablet 50 mg PO Q6 PRN (Reason: .severe breakthrough pain) Rx Instructions: 11/04/24 : CURRENTLY TAKING 4 TIMES DAILY FOR L LEG PAIN azelastine 137 mcg (0.1 %) aerosol,spray 2 spray INTRANASAL [facility]HS valacyclovir 1 gram tablet 2,000 mg PO AMPM PRN (Reason: Cold Sores) acetaminophen [Tylenol Extra Strength] 500 mg Tablet 500 mg PO Q6H PRN (Reason: Pain) albuterol sulfate 90 mcg/actuation HFA aerosol inhaler 2 puff INHALATION Q4H PRN (Reason: COUGH/SHORT OF BREATH/WHEEZING) Rx Instructions: 11/04/24 : CURRENTLY USING THIS MED TID, NOT PRN metoclopramide HCl [Reglan] 10 mg Tablet 10 mg PO DAILYBB PRN (Reason: Nausea) Rx Instructions: administer 30 minutes before meals buprenorphine 5 mcg/hour patch weekly 5 mcg transdermal WK Rx Instructions: 11/04/24 : APPLY THIS MED EVERY SATURDAY metoprolol succinate 50 mg Tablet Extended Release 24 Hr 50 mg PO QAM Qty: 30 0RF metoprolol succinate 25 mg tablet extended release 24 hr 25 mg PO QPM Iron Infusions 1 dose IV Q6M Rx Instructions: LAST INFUSION : 07/12 estradiol 0.01 % (0.1 mg/gram) cream 1 appful VAGINAL 2XWK Rx Instructions: 11/04/24 : Mon/Fri ropinirole 2 mg tablet 2 mg PO HS clindamycin phosphate 2 % cream 1 applic vaginal 2XWK Rx Instructions: 11/04/24 : APPLY THIS MED EVERY MON & THURS potassium chloride 10 mEq tablet extended release 20 meq PO TID torsemide 100 mg tablet 100 mg PO AMPM metolazone 2.5 mg tablet 2.5 mg PO .WEEKLY/UD rosuvastatin 10 mg tablet 10 mg PO QAM Held warfarin 5 mg Tablet 0 mg PO .UD/DAILY Hold Instructions: Resume on 11/11/24. hold today, get evaled by coumadin clinic 11/10 for deciding when to resume coumadin. Rx Instructions: 11/04/24 DIRECTED BY [facility] PER WEEKLY DRAW Discontinued nystatin 100,000 unit/mL suspension 5 ml mucous membrane QID PRN (Reason: THRUSH) Jardiance 10 mg Tablet 10 mg PO Q2D Hold Instructions: Resume on 07/22/23. Discuss with primary care doctor and cardiology before resuming benzonatate 100 mg capsule 100 mg PO TID PRN (Reason: cough) Discharge Orders: Discharge Order (Routine); Ordered 11/09/24 Ordered By: Jose Angel Lara Admission Data Admit Date/Time: 11/04/24 19:08 Attending Provider: Jose Angel Lara Admit Provider: Abdi German Primary Care Provider: Lesia English Other Providers: Abdi German; Nehemias Salcido; Aby Aguilar Jr; Isaca Golden
== END 2024-11-09 13:32 | disposition home health service (06) | DRG 291 ==
LOC: ED 13:58 → SUATTDRO 19:08 → 2S 19:08